=== PATIENT | male | born 1930 | race African-American/Black ===

== ENCOUNTER 2016-10-23 14:26 | Emergency (ER) | payer BC, MEDICARE ==
[~2016-10-23] VITALS: Ht 162.6 cm; Wt 70.5 kg
[~2016-10-23 14:26] MED LIST: ASPI-664 PO; BIMA2.5D BOTH EYES; CHOL20003 PO; CLOP75TA27 PO; DOXY100T20 PO; FAMO-18 PO; FOLI-49 PO; INSU100C5 SC; LEVO175T6 PO; LYR75 PO; MECL25TA2 PO; METO-448 PO; NIFE30TA60 PO; OXYC20TA41 PO; PROP30DR BOTH EYES; REMI IV; TERA10CA42 PO
[2016-10-23 15:06] VITALS: Ht 162.6 cm; Wt 70.5 kg
== END 2016-10-23 20:46 | disposition left against medical advice (07) ==
LOC: E/R 14:26
DX: Z53.21 Procedure and treatment not carried out due to patient leaving prior to being seen by health care provider (principal)

== ENCOUNTER 2016-11-03 09:24 | Emergency (ER) | payer MEDICARE ==
[~2016-11-03] VITALS: Wt 80.0 kg
[2016-11-03] MEDS ORDERED: HYDROCODONE/APAP (5/325) TAB PO ONE (11:00)
--- NOTE | 2016-11-03 13:04 | RADRPT ---
PROCEDURE: XR Lumbar Spine. CLINICAL INDICATION: Pain status post fall. TECHNIQUE: Lumbar spine x-rays, 2 views. COMPARISON: CT abdomen/pelvis 10/10/2012. FINDINGS: Bony mineralization appears slightly decreased. Vertebral body heights are normal. Surgical changes compatible with L5-S1 posterior spinal fusion are present. The configuration of the hardware is un changed. Severe intervertebral disk narrowing is observed at L4-L5 and L5-S1. The degree of anterol isthesis at L4-L5 and L5-S1 is grossly unchanged. Moderate degenerative changes are observed at L3- L4. Paravertebral soft tissues are unremarkable. Aortoiliac atherosclerotic calcification is presen t. IMPRESSION: L5-S1 posterior spinal fusion. The configuration of the hardware is unchanged as well as the degree of anterolisthesis of 4 over L5 and L5 over S1. 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 RPTAT: HLST .Mallorie Naqvi MD, MD Date Time Electronically viewed and signed by .Mallorie Naqvi MD, MD on 11/03/2016 13:04 .T/
--- NOTE | 2016-11-03 13:07 | RADRPT ---
PROCEDURE: XR Hip. CLINICAL INDICATION: Pain status post fall. TECHNIQUE: Right hip x-rays, 2 views. COMPARISON: None. FINDINGS: Bony mineralization appears decreased. There is no visible fracture. Femoral head and neck contour is smooth and intact. Moderate severe joint space narrowing is present. Spinal fusion hardware of the lower lumbar spine is in place. Phleboliths are seen within the pelvis. IMPRESSION: No evidence of acute osseous abnormality. Moderate severe joint space narrowing of the right hip. RPTAT: HLST .Mallorie Naqvi MD, MD Date Time Electronically viewed and signed by .Mallorie Naqvi MD, MD on 11/03/2016 13:07 .T/
--- NOTE | 2016-11-03 13:44 | RADRPT ---
PROCEDURE: CT scan of the right lower extremity without contrast. CLINICAL INDICATION: History of fall with right hip pain. TECHNIQUE: The scan of the right lower extremity was performed utilizing a high-resolution multide tector CT scanner. Direct thin section helical thin section axial sections were obtained without con trast. Coronal and sagittal as well as maximal intensity projection reformations were obtained. CTDI: 7.27 and DLP: 202.4 One or more of the following dose reduction techniques were used: - Automated exposure control. - Adjustment of the mA and/or kV according to patient size. Use of iterative reconstruction technique. COMPARISON: Right hip T 06/2017. FINDINGS: There are vascular calcifications in the internal and external iliac arteries, common fem oral artery and superficial femoral artery. There is vacuum phenomenon in the right SI joint. The right femur is intact. The visible portions of the right side of the acetabulum are intact. No sof t tissue mass or hematoma is identified. There are degenerative spurs along the margin of the right acetabulum. There are calcifications adjacent to the greater trochanter of the femur consistent wi th myositis ossificans. The visible portions of the urinary bladder colon and small bowel loops are normal. No enlarged inguinal lymph nodes are inguinal hernia is identified. IMPRESSION: 1. Osteoarthritis of the right hip. 2. No evidence of acute fracture. 3. Atherosclerotic vascular disease. 4. Myositis ossificans. RPTAT:AAJJ Physician Darci Date Time Electronically viewed and signed by Physician Darci on 11/03/2016 13:43 MARC/
[2016-11-03] MEDS ORDERED: HYDR-906 PO (13:54)
[2016-11-03] MEDS ORDERED: DOCU-144 PO (13:54)
--- NOTE | 2016-11-04 23:04 | ERD ---
ER Documentation Chief Complaint Date/Time DATE: 11/03/16 Chief Complaint Right hip pain s/p mechanical fall HPI The patient is an 86-year-old male who presents to the Emergency Department with complaint of right hip pain s/p mechanical fall one week ago. He reports that he tripped over a step, and his right knee gave out, causing him to the fall directly onto his right hip. Since, he has been ambulatory with his walker , but with increased pain to that hip. He notes that he did not come directly to the Emergency Department after the fall, as it was important that he continue with his daily routine and go to [facility]. However, now that he has more time, he presented for evaluation. The patient describes a 7/10 aching pain to the lateral aspect of the right hip, that sometimes radiates proximally into the lumbar back, and sometimes distally down towards the knee. The pain is worsened with internal rotation of the hip, ambulation and weight-bearing activity, and is improved at rest. He denies any new numbness, paresthesias or weakness of the distal extremity since the fall. Denies any restricted range of motion. Denies any bowel or bladder disturbances, urinary retention, or lower extremity weakness. The patient lives at home with his daughter, and has been able to continue in his baseline ADLs with use of his walker. He denies any head or neck injury/trauma with the fall, or any other complaints or concerns at this time. ROS All systems reviewed and are negative except as per history of present illness. Medications Home Meds Active Scripts Docusate Sodium* (Colace*) 100 Mg Capsule, 100 MG PO BID, #30 CAP Prov:PAUL JONES PA-C 11/03/16 Hydrocodone/Acetaminophen (Quinn 5-325 Tablet) 1 Each Tablet, 1 EACH PO Q6, #12 TAB Prov:PAUL JONES PA-C 11/03/16 Doxycycline Hyclate* (Doxycycline Hyclate*) 100 Mg Tablet.dr, 100 MG PO BID for 7 Days, TAB Prov:CAMPOS CESAR MD 08/07/16 Meclizine Hcl* (Antivert*) 25 Mg Tablet, 25 MG PO Q6H Y for DIZZINESS, #20 TAB Prov:BRITTANI KISER DO 04/03/16 Reported Medications Nifedipine* (Nifedipine ER*) 30 Mg Tablet.sa, 30 MG PO DAILY, TAB.SA 04/03/16 Terazosin Hcl* (Terazosin Hcl*) 10 Mg Capsule, 10 MG PO HS, CAP 04/03/16 Propylene Glycol-Peg 400 (Systane 0.3-0.4% Eye Drops) 0.3-0.4 % - 30 Ml Drops, 1 DROP BOTH EYES QID Y for DRY EYES, EA 12/17/14 Bimatoprost* (Lumigan*) 0.01%-2.5 Ml Opht Drops, 1 DROP BOTH EYES HS, EA 12/17/14 Infliximab (Remicade) 100 Mg Soln, 100 MG IV once monthly 09/18/14 Oxycodone Hcl* (Oxycontin*) 20 Mg Tab.er.12h, 20 MG PO DAILY Y for PAIN, TAB 09/18/14 Cholecalciferol (Vitamin D3) (VITAMIN D-3) 2,000 Unit Capsule, 2000 UNIT PO DAILY 08/28/14 Folic Acid* (Folic Acid*) 1 Mg Tablet, 1 MG PO DAILY, TAB 08/28/14 Aspirin* (Aspirin* EC) 81 Mg Tablet.dr, 81 MG PO DAILY, TAB 08/28/14 Clopidogrel Bisulfate (Clopidogrel) 75 Mg Tablet, 75 MG PO DAILY, TAB 08/28/14 Levothyroxine Sodium* (Levothyroxine Sodium*) 175 Mcg Tablet, 175 MCG PO DAILY, TAB 08/28/14 Pregabalin* (Lyrica*) 75 Mg Capsule, 75 MG PO BID, CAP 08/28/14 Metoprolol Tartrate* (Lopressor*) 25 Mg Tab, 25 MG PO BID, TAB 08/28/14 Famotidine* (Pepcid*) 20 Mg Tablet, 20 MG PO DAILY, TAB 08/28/14 Insulin Glargine,Hum.rec.anlog (Lantus) 100 U/Ml Cartridge, 10 UNITS SC HS 09/15/11 Allergies Allergies: Coded Allergies: Penicillins (Verified Allergy, Mild, 09/15/16) sulfadiazine (Verified Allergy, Unknown, 09/15/16) PMhx/Soc History of Surgery: No Anesthesia Reaction: No Hx Neurological Disorder: No Hx Respiratory Disorders: No Hx Cardiac Disorders: No Hx Psychiatric Problems: No Hx Miscellaneous Medical Probl: No Hx Alcohol Use: No Hx Substance Use: No Hx Tobacco Use: No Smoking Status: Never smoker Physical Exam Vitals Vital Signs Date Time Temp Pulse Resp B/P Pulse Ox O2 Delivery O2 Flow Rate FiO2 11/03/16 09:30 98.0 76 18 148/68 99 Physical Exam GENERAL: Well-developed, well-nourished, in no acute distress HEENT: Head is normocephalic, atraumatic. No hematomas. Conjunctiva pink. Moist mucous membranes. NECK: Supple. No posterior midline tenderness. RESPIRATORY: Clear to auscultation bilaterally. CARDIOVASCULAR: Regular rate and rhythm. S1 and S2 normal. GASTROINTESTINAL: Abdomen is soft, non-tender. Non-distended. Positive bowel sounds. EXTREMITIES: No clubbing, cyanosis, or edema. Distal pulses are palpable bilaterally. Moving both lower extremities. Patient is able to internally and externally rotate the right hip, though with increased discomfort upon internal rotation. He is able to flex and extend the right knee, and dorsiflex and plantar flex the right ankle. No gross deformities. BACK: Mild tenderness to palpation over the paraspinal muscles of the right lumbar back, particularly L5-S1. No midline bony tenderness. No step offs. NEUROLOGIC: The patient is alert, awake, and oriented x 3. PSYCHIATRIC: Appropriate; Cooperative. INTEGUMENT: No rashes. Results 24 hrs Current Medications Medications (Trade) Dose Ordered Sig/Geeta Route PRN Reason Start Time Stop Time Status Last Admin Dose Admin Acetaminophen/ Hydrocodone Bitart (Quinn (5/325)) 1 tab ONCE ONCE PO 11/03/16 11:00 11/03/16 11:01 DC 11/03/16 10:52 Procedures/MDM The patient's case was reviewed and discussed with Dr. Florian, who agrees with the plan of care including treatment and advanced imaging as appropriate. He recommends CT imaging of the right hip to rule out any underlying fracture that may have been missed on x-ray imaging. DIAGNOSTIC TESTS AND INTERPRETATION: PROCEDURE: XR Hip. CLINICAL INDICATION: Pain status post fall. TECHNIQUE: Right hip x-rays, 2 views. COMPARISON: None. FINDINGS:Bony mineralization appears decreased. There is no visible fracture. Femoral head and neck contour is smooth and intact. Moderate severe joint space narrowing is present. Spinal fusion hardware of the lower lumbar spine is in place. Phleboliths are seen within the pelvis. IMPRESSION: No evidence of acute osseous abnormality. Moderate severe joint space narrowing of the right hip. .Mallorie Naqvi MD, Date Time Electronically viewed and signed by .Mallorie Naqvi MD, on 11/03/2016 13:07 PROCEDURE: XR Lumbar Spine. CLINICAL INDICATION: Pain status post fall. TECHNIQUE: Lumbar spine x-rays, 2 views. COMPARISON: CT abdomen/pelvis 10/10/2012. FINDINGS: Bony mineralization appears slightly decreased. Vertebral body heights are normal. Surgical changes compatible with L5-S1 posterior spinal fusion are present. The configuration of the hardware is unchanged. Severe intervertebral disk narrowing is observed at L4-L5 and L5-S1. The degree of anterolisthesis at L4-L5 and L5-S1 is grossly unchanged. Moderate degenerative changes are observed at L3-L4. Paravertebral soft tissues are unremarkable. Aortoiliac atherosclerotic calcification is present. IMPRESSION: L5-S1 posterior spinal fusion. The configuration of the hardware is unchanged as well as the degree of anterolisthesis of 4 over L5 and L5 over S1. 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 .Mallorie Naqvi MD, Date Time Electronically viewed and signed by .Mallorie Naqvi MD, on 11/03/2016 13:04 PROCEDURE: CT scan of the right lower extremity without contrast. CLINICAL INDICATION: History of fall with right hip pain. TECHNIQUE: The scan of the right lower extremity was performed utilizing a high-resolution multidetector CT scanner. Direct thin section helical thin section axial sections were obtained without contrast. Coronal and sagittal as well as maximal intensity projection reformations were obtained. One or more of the following dose reduction techniques were used: - Automated exposure control. - Adjustment of the mA and/or kV according to patient size. Use of iterative reconstruction technique. COMPARISON: Right hip T 06/2017. FINDINGS: There are vascular calcifications in the internal and external iliac arteries, common femoral artery and superficial femoral artery. There is vacuum phenomenon in the right SI joint. The right femur is intact. The visible portions of the right side of the acetabulum are intact. No soft tissue mass or hematoma is identified. There are degenerative spurs along the margin of the right acetabulum. There are calcifications adjacent to the greater trochanter of the femur consistent with myositis ossificans. The visible portions of the urinary bladder colon and small bowel loops are normal. No enlarged inguinal lymph nodes are inguinal hernia is identified. IMPRESSION: 1. Osteoarthritis of the right hip. 2. No evidence of acute fracture. 3. Atherosclerotic vascular disease. 4. Myositis ossificans. Physician Darci Date Time Electronically viewed and signed by Kaleb Avalos Physician on 11/03/2016 13:43 MEDICAL DECISION MAKING: This is an 86-year-old male presenting to the Emergency Department with one week of right hip pain s/p mechanical trip and fall over a step and falling onto the right hip. The patient had tenderness to palpation over the lateral aspect of the femur and right hip on physical examination. Otherwise, he was able to flex, extend, internally and externally rotate. He had no focal swelling noted. No gross deformities. Distal neurovascular status was at his baseline. The differential diagnosis includes, but is not limited to, septic joint, gout, arthritis, fracture, dislocation, sprain, strain, contusion, tendinitis. No acute abnormalities were noted on x- rays performed. Myositis ossificans was noted on CT imaging, which may be related to the patient's current pain. There is currently no clinical evidence of fracture, dislocation, subluxation or any other emergent medical condition. After rest and administration of Quinn, the patient reports no new complaints, and decreased pain. Upon my review and interpretation of the patient's presentation and overall ER course, I believe the patient's symptoms are most consistent with right hip contusion. At this time, given that the patient is able to continue performing his daily ADLs with use of his home walker, and that he lives at home with his daughter, I believe that the patient is stable for discharge home. He will be discharged home with prescriptions for Quinn and Colace and given strict return precautions for signs of deteriorating or worsening condition. He is advised to follow-up with his primary care provider for reevaluation and further management within the next 1-2 days or return to the ER sooner for any new or worsening symptoms. I believe he may benefit from outpatient physical therapy as well. However, at this time, there is no clinical indication for admission. I shared my medical decision making and plan with the patient at length and in great detail, and he verbally understands and agrees with the plan for further observation and care as an outpatient. At the time of discharge all questions were answered. Departure Diagnosis: Primary Impression: Contusion of right hip Encounter type: initial encounter Qualified Code: S70.01XA - Contusion of right hip, initial encounter Additional Impression: Fall on stairs Encounter type: initial encounter Qualified Code: W10.9XXA - Fall on stairs , initial encounter Condition: Stable Patient Instructions: Hip Contusion Additional Instructions: Follow up with your primary medical provider in 1-2 days for reevaluation and further management. You may benefit from physical therapy as well. PAUL JONES PA-C Nov 04, 2016 23:04
== END 2016-11-03 14:09 | disposition home or self-care (01) ==
LOC: FTE 09:24
DX: S70.01XA Contusion of right hip, initial encounter (principal); E11.9 Type 2 diabetes mellitus without complications; W10.9XXA Fall (on) (from) unspecified stairs and steps, initial encounter; Y92.9 Unspecified place or not applicable; Z79.4 Long term (current) use of insulin; Z79.82 Long term (current) use of aspirin
CPT/HCPCS: 72100; 73510; 73700

== ENCOUNTER 2016-12-27 10:08 | Emergency (ER) | payer MEDICARE ==
[~2016-12-27] VITALS: Ht 162.6 cm; Wt 68.0 kg
[~2016-12-27 10:08] MED LIST changes: +DOCU-144 PO; +HYDR-906 PO
[2016-12-27 10:14] VITALS: Ht 162.6 cm; Wt 68.0 kg
[2016-12-27] MEDS ORDERED: ONDANSETRON (ODT) 4 MG TAB ODT STA (15:54)
[2016-12-27] MEDS ORDERED: morphine 10 MG INJ IM ONE (16:00)
--- NOTE | 2016-12-27 16:07 | ERD ---
ER Documentation Chief Complaint Date/Time DATE: 12/27/16 TIME: 16:03 Chief Complaint dizzy since last night pain in the back HPI 86-year-old male history of chronic pain, rheumatoid arthritis who presents with lumbar back pain. He states that he had a mechanical fall in October. Since that time he has been dealing with lumbar back pain that is radiating to the right lower extremity. He denies any bowel or bladder incontinence. He generally ambulates with a cane and that is unchanged since that time. The patient takes oxycodone at home for pain that is not helping his symptoms. He denies any abdominal pain, no numbness or tingling. At triage it was noted dizziness but the patient denies any dizziness to me. ROS All systems reviewed and are negative except as per history of present illness. Medications Home Meds Reported Medications Terazosin Hcl* (Terazosin Hcl*) 10 Mg Capsule, 10 MG PO HS, CAP 12/27/16 Allopurinol* (Allopurinol*) 100 Mg Tablet, 100 MG PO DAILY, TAB 12/27/16 Ranolazine* (Ranexa*) 500 Mg Tab.sr.12h, 500 MG PO Q12, TAB 12/27/16 Carvedilol* (Carvedilol*) 25 Mg Tablet, 25 MG PO DAILY, #60 TAB 12/27/16 Levothyroxine Sodium* (Levothyroxine Sodium*) 125 Mcg Tablet, 125 MCG PO BEFORE BREAKFAST, #30 TAB 12/27/16 Nifedipine* (Nifedipine ER*) 30 Mg Tablet.sa, 30 MG PO DAILY, TAB.SA 04/03/16 Oxycodone Hcl* (Oxycontin*) 20 Mg Tab.er.12h, 20 MG PO DAILY Y for PAIN, TAB 09/18/14 Cholecalciferol (Vitamin D3) (VITAMIN D-3) 2,000 Unit Capsule, 2000 UNIT PO DAILY 08/28/14 Aspirin* (Aspirin* EC) 81 Mg Tablet.dr, 81 MG PO DAILY, TAB 08/28/14 Clopidogrel Bisulfate (Clopidogrel) 75 Mg Tablet, 75 MG PO DAILY, TAB 08/28/14 Pregabalin* (Lyrica*) 75 Mg Capsule, 75 MG PO BID, CAP 08/28/14 Famotidine* (Pepcid*) 20 Mg Tablet, 20 MG PO DAILY, TAB 08/28/14 Insulin Glargine,Hum.rec.anlog (Lantus) 100 U/Ml Cartridge, 8 UNITS SC HS 09/15/11 Discontinued Reported Medications Terazosin Hcl* (Terazosin Hcl*) 10 Mg Capsule, 10 MG PO HS, CAP 04/03/16 Propylene Glycol-Peg 400 (Systane 0.3-0.4% Eye Drops) 0.3-0.4 % - 30 Ml Drops, 1 DROP BOTH EYES QID Y for DRY EYES, EA 12/17/14 Bimatoprost* (Lumigan*) 0.01%-2.5 Ml Opht Drops, 1 DROP BOTH EYES HS, EA 12/17/14 Infliximab (Remicade) 100 Mg Soln, 100 MG IV once monthly 09/18/14 Folic Acid* (Folic Acid*) 1 Mg Tablet, 1 MG PO DAILY, TAB 08/28/14 Levothyroxine Sodium* (Levothyroxine Sodium*) 175 Mcg Tablet, 175 MCG PO DAILY, TAB 08/28/14 Metoprolol Tartrate* (Lopressor*) 25 Mg Tab, 25 MG PO BID, TAB 08/28/14 Discontinued Scripts Docusate Sodium* (Colace*) 100 Mg Capsule, 100 MG PO BID, #30 CAP Prov:PAUL JONES PA-C 11/03/16 Hydrocodone/Acetaminophen ([place] 5-325 Tablet) 1 Each Tablet, 1 EACH PO Q6, #12 TAB Prov:PAUL JONES PA-C 11/03/16 Doxycycline Hyclate* (Doxycycline Hyclate*) 100 Mg Tablet.dr, 100 MG PO BID for 7 Days, TAB Prov:CAMPOS CESAR MD 08/07/16 Meclizine Hcl* (Antivert*) 25 Mg Tablet, 25 MG PO Q6H Y for DIZZINESS, #20 TAB Prov:BRITTANI KISER DO 04/03/16 Allergies Allergies: Coded Allergies: Penicillins (Verified Allergy, Mild, 12/27/16) sulfadiazine (Verified Allergy, Unknown, 12/27/16) PMhx/Soc History of Surgery: No Anesthesia Reaction: No Hx Neurological Disorder: No Hx Respiratory Disorders: No Hx Cardiac Disorders: No Hx Psychiatric Problems: No Hx Miscellaneous Medical Probl: No Hx Alcohol Use: No Hx Substance Use: No Hx Tobacco Use: No FmHx Family History: No diabetes Physical Exam Vitals Vital Signs Date Time Temp Pulse Resp B/P Pulse Ox O2 Delivery O2 Flow Rate FiO2 12/27/16 10:14 98.1 63 18 131/62 99 Physical Exam General: Well developed, well nourished, no acute distress, stigmata of rheumatoid arthritis Head: Normocephalic, atraumatic. Eyes: Pupils equally reactive, EOM intact ENT: Moist mucous membranes Neck: Supple, no lymphadenopathy Respiratory: Lungs clear bilaterally, no distress Cardiovascular: RRR, no murmurs, rubs, or gallops Abdominal: Soft, non-tender, non-distended, no peritoneal signs, no pulsatile mass Back: No midline tenderness deformities or step-offs, slight soft tissue reproducible right paraspinal muscle tenderness : Deferred MSK: No edema, no unilateral swelling, 5/5 strength Neurologic: Alert and oriented, moving all extremities, normal speech, no focal weakness, no cerebellar signs, steady ambulation with cane at baseline Skin: No rash Psych: Normal mood Results 24 hrs Current Medications Medications (Trade) Dose Ordered Sig/Geeta Route PRN Reason Start Time Stop Time Status Last Admin Dose Admin Morphine Sulfate (morphine) 4 mg ONCE ONCE IM 12/27/16 16:00 12/27/16 16:09 DC 12/27/16 16:36 Ondansetron HCl (Zofran Odt) 4 mg ONCE STAT ODT 12/27/16 15:54 12/27/16 15:57 DC 12/27/16 16:36 Procedures/MDM EKG, MONITORS, & DIAGNOSTIC IMAGING: CT lumbar spine: IMPRESSION: There is a transitional vertebra which will be labeled S1 with rudimentary disc at S1-S2. Please refer to imaging prior to any surgical intervention. 1. No acute fracture. 2. Bilateral L5-S1 transpedicular screws with vertical fixation rods as detailed above. The hardware is intact without evidence of screw loosening. There is solid interbody osseous fusion at L4-5 as well as solid bilateral posterior fusion at L4-5 and L5-S1. 3. L4-L5 grade 1/2 anterolisthesis with bilateral laminectomies with moderate spinal canal stenosis. There is severe bilateral foraminal stenosis impinging the exiting bilateral L4 nerve roots. 4. L5-S1 grade 1 anterolisthesis with moderate to severe spinal canal stenosis. There is severe bilateral foraminal stenosis impinging the exiting bilateral L5 nerve roots. 5. There is a partially imaged soft tissue within the inferior aspect of the bladder most likely representing an enlarged prostate. This was noted on the CT of the abdomen/pelvis from October 10, 2012. Correlate with digital rectal examination and PSA as clinically warranted. Further findings as detailed above. RPTAT: PP MEDICAL DECISION MAKING: The patient presents with lumbar back pain for approximately 2 months. This is secondary to mechanical fall at that time. The patient had x-ray imaging that showed lumbar fusion. His clinical presentation is consistent with likely lumbar radiculopathy. Related to the fall the patient may have had a protruding disc or nerve impingement. No signs of cauda equina or cord compression. The patient's low back pain is unlikely related to serious etiology. The patient exhibits no clinical signs or symptoms and has no history or risk factors to suggest cauda equina, cord compression, epidural abscess, epidural hematoma, acute aortic aneurysm or dissection. It is unclear why at triage it was noted dizziness. The patient adamantly denies reporting this. The patient is steady on his feet with normal blood pressure. I do not believe this is an alternative process such as stroke, acute vascular process or acute intra-abdominal process. I believe CT imaging of the lumbar spine would be reasonable. Patient will require outpatient referral to hematology specialist, consideration for MRI imaging or physical and rehab therapy. He also sees his pain specialist. ER COURSE: Single dose of 4 mg IM morphine provided to the patient. CT imaging consistent with likely lumbar radiculopathy without evidence of acute fracture or acute process. Outpatient follow-up with primary care physician, physical and rehab therapy and referral to hematology specialist through primary care physician would be most appropriate for this patient. I kept the patient and/or family informed of laboratory and diagnostic imaging results throughout the emergency room course. DISPOSITION PLAN: We discussed follow up with the patient's primary care doctor within 24 to 48 hours as needed. We also discussed return to the emergency room for worsening symptoms or worsening condition. Outpatient referral: Spine surgery Discharge Medications: Patient taking pain medication at home that is adequate Departure Diagnosis: Primary Impression: Lumbar back pain Chronicity: chronic Back pain laterality: bilateral Sciatica presence: with sciatica Sciatica laterality: sciatica of right side Qualified Code: M54.41 - Chronic bilateral low back pain with right-sided sciatica Additional Impressions: Lumbar radiculopathy, acute Lumbar radiculopathy, chronic Condition: Stable SOUMYA RAVI MD Dec 27, 2016 16:07
[2016-12-27] MEDS ORDERED: LEVO125T75 PO (16:20)
[2016-12-27] MEDS ORDERED: RANO500T2 PO (16:21)
[2016-12-27] MEDS ORDERED: CARV25TA79 PO (16:21)
[2016-12-27] MEDS ORDERED: ALLO100T PO (16:22)
[2016-12-27] MEDS ORDERED: TERA10CA42 PO (16:22)
--- NOTE | 2016-12-27 16:47 | RADRPT ---
PROCEDURE: CT Lumbar Spine without contrast. CLINICAL INDICATION: Status post fall. Postoperative. TECHNIQUE: Noncontrast CT of the lumbar spine was performed with multiplanar reformatted images gen erated from the axial acquired data. The administered radiation dose was CTDI vol = 52.67 mGy, DLP = 1533.67 mGy-cm. One or more of the following dose reduction techniques were used: Automated exposu re control, Adjustment of the mA and/or kV according to patient size, or Use of iterative reconstruc tion technique. COMPARISON: There are no similar studies submitted for comparison. FINDINGS: There is a transitional vertebra which will be labeled S1 with rudimentary disc at S1-S2. Please ref er to imaging prior to any surgical intervention. The patient is status post bilateral L5 and S1 transpedicular screws with vertical fixation rods. T he left L4 screw mildly extends into the inferior aspect of the left L4-5 foramina. The hardware is intact without evidence of screw loosening. There is osseous fusion at L4-L5. Posterior bone graft material is noted at the L4-L5 and L5-S1 levels with solid osseous fusion posteriorly. There is normal lumbar lordosis. There is minimal loss of L4 vertebral body height which is likely chronic. There are endplate scler otic degenerative changes with subchondral cysts at the L3-L4 level. There is a large Schmorl's node within the inferior L2 endplate. There is no destructive osseous lesion. There is no acute fracture. T11-T12: There is mild disk space narrowing. There is a 2 mm broad-based disk bulge and moderate b ilateral facet arthropathy with mild to moderate spinal canal stenosis. There is moderate bilateral foraminal stenosis. T12-L1 : There is mild disk space narrowing. There is a 2 mm broad-based disk bulge and mild bilate ral facet arthropathy without spinal canal or bilateral foraminal stenosis. L1-L2 : There is a 2 mm broad-based disk bulge and mild bilateral facet arthropathy without spinal c anal stenosis. There is no bilateral foraminal stenosis. L2-L3 : There is vacuum disk phenomenon. There is a 3 mm broad-based disk bulge with dorsal disk ca lcification with moderate bilateral facet arthropathy and ligamentum flavum infolding effacing the b ilateral lateral recesses with mild spinal canal stenosis. There is moderate bilateral foraminal st enosis contacting the exiting bilateral L2 nerve roots. L3-L4 : There is extensive vacuum disk phenomenon. There is minimal retrolisthesis with a broad-bas ed disk osteophyte complex with moderate bilateral facet arthropathy and ligamentum flavum infolding causing severe spinal canal stenosis. There is severe bilateral foraminal stenosis impinging the e xiting bilateral L3 nerve roots. L4-L5 : There is osseous interbody fusion. There is 9 mm of grade 1/2 anterolisthesis with bilatera l laminectomies with uncovering of the intervertebral body disk with severe bilateral facet arthropa thy causing moderate spinal canal stenosis. There is severe bilateral foraminal stenosis impinging the exiting bilateral L4 nerve roots. L5-S1 : There is severe disk space narrowing. There is 5 mm of grade 1 anterolisthesis with severe bilateral facet arthropathy with moderate to severe spinal canal stenosis. There is severe bilatera l foraminal stenosis impinging the exiting bilateral L5 nerve roots. The sacroiliac joints are intact. There are right renal cysts with the larger measuring 2 cm. There is a partially imaged soft tissue within the inferior aspect of the bladder which is indeterminate but may represent an enlarged prostate. IMPRESSION: There is a transitional vertebra which will be labeled S1 with rudimentary disc at S1-S2. Please ref er to imaging prior to any surgical intervention. 1. No acute fracture. 2. Bilateral L5-S1 transpedicular screws with vertical fixation rods as detailed above. The hardwar e is intact without evidence of screw loosening. There is solid interbody osseous fusion at L4-5 as well as solid bilateral posterior fusion at L4-5 and L5-S1. 3. L4-L5 grade 1/2 anterolisthesis with bilateral laminectomies with moderate spinal canal stenosis . There is severe bilateral foraminal stenosis impinging the exiting bilateral L4 nerve roots. 4. L5-S1 grade 1 anterolisthesis with moderate to severe spinal canal stenosis. There is severe bi lateral foraminal stenosis impinging the exiting bilateral L5 nerve roots. 5. There is a partially imaged soft tissue within the inferior aspect of the bladder most likely rep resenting an enlarged prostate. This was noted on the CT of the abdomen/pelvis from October 10, 2012 . Correlate with digital rectal examination and PSA as clinically warranted. Further findings as detailed above. RPTAT: PP .Clyde Rodarte MD, MD Date Time Electronically viewed and signed by .Clyde Rodarte MD, MD on 12/27/2016 16:46 .F/
[2016-12-27 18:08] VITALS: BP 150/79; PULSE 72; RESP 18; TEMP 98.3
== END 2016-12-27 18:11 | disposition home or self-care (01) ==
LOC: E/R 10:08
DX: M54.41 Lumbago with sciatica, right side (principal); M54.16 Radiculopathy, lumbar region; E11.9 Type 2 diabetes mellitus without complications
CPT/HCPCS: 72131; 96372; 99285; J2270

== ENCOUNTER 2017-01-04 12:20 | Emergency (ER) | payer MEDICARE ==
[~2017-01-04] VITALS: Ht 165.1 cm; Wt 67.0 kg
[~2017-01-04 12:20] MED LIST changes: +ALLO100T PO; -BIMA2.5D BOTH EYES; +CARV25TA79 PO; -DOCU-144 PO; -DOXY100T20 PO; -FOLI-49 PO; -HYDR-906 PO; +LEVO125T75 PO; -LEVO175T6 PO; -MECL25TA2 PO; -METO-448 PO; -PROP30DR BOTH EYES; +RANO500T2 PO; -REMI IV
[2017-01-04 12:25] VITALS: Ht 165.1 cm; Wt 67.0 kg
== END 2017-01-04 12:49 | disposition left against medical advice (07) ==
LOC: E/R 12:20
DX: Z53.21 Procedure and treatment not carried out due to patient leaving prior to being seen by health care provider (principal)

== ENCOUNTER 2017-07-09 19:49 | Emergency (ER) | payer BC, MEDICARE ==
[~2017-07-09] VITALS: Ht 160 cm; Wt 63.5 kg
[~2017-07-09 19:49] MED LIST changes: -CHOL20003 PO; +CHOL200073 PO; -FAMO-18 PO; +FAMO-96 PO
[2017-07-09 20:20] VITALS: Ht 160 cm; Wt 63.5 kg
== END 2017-07-09 23:20 | disposition left against medical advice (07) ==
LOC: E/R 19:49
DX: Z53.21 Procedure and treatment not carried out due to patient leaving prior to being seen by health care provider (principal)

== ENCOUNTER 2017-07-28 19:06 | Inpatient (IN) | payer MEDICARE, BC ==
[~2017-07-28] VITALS: Ht 167.6 cm; Wt 62.5 kg
--- NOTE | 2017-07-28 19:53 | ERD ---
ER Documentation Chief Complaint Chief Complaint chest pain, elevated hr x 2 hours HPI This is an 87-year-old man with a past medical history of hypertension, hyperlipidemia, diabetes, CKD, hypothyroidism, coronary artery disease sp CABG 25 years ago, PVD, on aspirin and Plavix, heart failure on Coreg and Ranexa, BPH on terazosin who is presenting with nonradiating moderate left-sided chest pain, palpitations and lightheadedness for approximately 2 hours. He does not have associated diaphoresis or shortness of breath. The patient denies feeling sick recently. The patient denies fever or chills. The patient has had no headache or vision changes. The patient does not endorse neck or back pain. The patient has had no shortness of breath or trouble breathing. The patient denies nausea or vomiting. The patient denies abdominal pain or changes to bowel movements or urination. The patient has had no focal deficits. The patient has had no weakness or numbness or tingling to the face or extremities. ROS All systems reviewed and are negative except as per history of present illness. Medications Home Meds Reported Medications Terazosin Hcl* (Terazosin Hcl*) 10 Mg Capsule, 10 MG PO HS, CAP 12/27/16 Allopurinol* (Allopurinol*) 100 Mg Tablet, 100 MG PO DAILY, TAB 12/27/16 Ranolazine* (Ranexa*) 500 Mg Tab.sr.12h, 500 MG PO Q12, TAB 12/27/16 Carvedilol* (Carvedilol*) 25 Mg Tablet, 25 MG PO DAILY, #60 TAB 12/27/16 Levothyroxine Sodium* (Levothyroxine Sodium*) 125 Mcg Tablet, 125 MCG PO BEFORE BREAKFAST, #30 TAB 12/27/16 Nifedipine* (Nifedipine ER*) 30 Mg Tablet.sa, 30 MG PO DAILY, TAB.SA 04/03/16 Oxycodone Hcl* (Oxycontin*) 20 Mg Tab.er.12h, 20 MG PO DAILY Y for PAIN, TAB 09/18/14 Cholecalciferol (Vitamin D3) (VITAMIN D-3) 2,000 Unit Capsule, 2000 UNIT PO DAILY 08/28/14 Aspirin* (Aspirin* EC) 81 Mg Tablet.dr, 81 MG PO DAILY, TAB 08/28/14 Clopidogrel Bisulfate (Clopidogrel) 75 Mg Tablet, 75 MG PO DAILY, TAB 08/28/14 Pregabalin* (Lyrica*) 75 Mg Capsule, 75 MG PO BID, CAP 08/28/14 Famotidine* (Pepcid*) 20 Mg Tablet, 20 MG PO DAILY, TAB 08/28/14 Insulin Glargine,Hum.rec.anlog (Lantus) 100 U/Ml Cartridge, 8 UNITS SC HS 09/15/11 Allergies Allergies: Coded Allergies: Penicillins (Verified Allergy, Mild, 12/27/16) Sulfa (Sulfonamide Antibiotics) (Verified Allergy, Unknown, 07/28/17) sulfadiazine (Verified Allergy, Unknown, 12/27/16) PMhx/Soc History of Surgery: No Anesthesia Reaction: No Hx Neurological Disorder: No Hx Respiratory Disorders: No Hx Cardiac Disorders: Yes (HTN, HLD, CAD, PVD, DM) Hx Psychiatric Problems: No Hx Miscellaneous Medical Probl: Yes (BACK PAIN, CKD) Hx Alcohol Use: No Hx Substance Use: No Hx Tobacco Use: No FmHx Family History: coronary disease, diabetes Physical Exam Vitals Vital Signs Date Time Temp Pulse Resp B/P Pulse Ox O2 Delivery O2 Flow Rate FiO2 07/28/17 19:50 98.4 93 19 156/63 96 Room Air 07/28/17 19:50 Nasal Cannula 07/28/17 19:12 98.4 105 20 143/71 95 Physical Exam Const: No apparent distress, well-developed, well-nourished Head: Atraumatic Eyes: Normal Conjunctiva. Extraocular movements intact. ENT: Normal External Ears, Nose and Mouth. Neck: Full range of motion. ~ No meningismus. Resp: Faint bibasilar rales Cardio: Regular rhythm, mild tachycardia, no murmurs Abd: Soft, non tender, non distended. Normal bowel sounds Skin: No petechiae or rashes Back: No midline or flank tenderness Ext: No cyanosis, LLE edema with mild warmth and erythema Neur: Awake and alert, oriented 4. Cranial nerves intact. No facial droop. Normal strength and sensation in all extremities. Coordination with finger to nose normal. Psych: Normal Mood and Affect Result Diagram: 07/28/17 1950 07/28/17 1950 Results 24 hrs Laboratory Tests Test 07/28/17 19:50 White Blood Count 11.710^3/ul Red Blood Count 2.7310^6/ul Hemoglobin 7.9g/dl Hematocrit 24.6% Mean Corpuscular Volume 90.1fl Mean Corpuscular Hemoglobin 28.9pg Mean Corpuscular Hemoglobin Concent 32.1g/dl Red Cell Distribution Width 15.5% Platelet Count 04803^3/UL Mean Platelet Volume 9.1fl Neutrophils % 60.9% Lymphocytes % 25.4% Monocytes % 7.1% Eosinophils % 5.8% Basophils % 0.5% Nucleated Red Blood Cells % 0.0/100WBC Neutrophils # 7.110^3/ul Lymphocytes # 3.010^3/ul Monocytes # 0.810^3/ul Eosinophils # 0.710^3/ul Basophils # 0.110^3/ul Nucleated Red Blood Cells # 0.010^3/ul Prothrombin Time 16.2Sec Prothrombin Time Ratio 1.3 INR International Normalized Ratio 1.29 Sodium Level 138mmol/L Potassium Level 3.7mmol/L Chloride Level 94mmol/L Carbon Dioxide Level 31mmol/L Anion Gap 17 Blood Urea Nitrogen 27mg/dl Creatinine 1.56mg/dl Glucose Level 132mg/dl Calcium Level 8.9mg/dl Iron Level 29ug/dl Total Iron Binding Capacity Pending Percent Iron Saturation Pending Total Bilirubin 0.3mg/dl Direct Bilirubin 0.00mg/dl Indirect Bilirubin 0.3mg/dl Aspartate Amino Transf (AST/SGOT) 20IU/L Alanine Aminotransferase (ALT/SGPT) 16IU/L Alkaline Phosphatase 84IU/L Troponin I < 0.012ng/ml B-Type Natriuretic Peptide 609PG/ML Total Protein 8.1g/dl Albumin 4.0g/dl Globulin 4.10g/dl Albumin/Globulin Ratio 0.97 Current Medications Medications (Trade) Dose Ordered Sig/Geeta Route PRN Reason Start Time Stop Time Status Last Admin Dose Admin Aspirin (Aspirin) 324 mg ONCE ONCE PO 07/28/17 20:00 07/28/17 20:01 DC 07/28/17 20:28 Procedures/[facility] The patient's presentation warrants further investigation. The patient's history is concerning and I have a moderate suspicion of a cardiac pathology. A cardiac workup will be performed. The patient's symptoms are not consistent with aortic dissection. I have low suspicion for pulmonary embolism. That said , the patient does have left lower extremity edema. The patient reports that he had veins removed from that leg for his CABG and he has had swelling for quite some time. A Doppler will be obtained in the hospital. The patient does not have signs of an infectious etiology such as pneumonia. I am not entirely convinced that the patient has cellulitis, especially in the setting of chronic left lower extremity changes, but his left lower extremity is warm to touch. This will need to be evaluated in the hospital as well. She does not have symptoms consistent with a pneumothorax. LABS The patient's blood work was obtained and reviewed. The patient's CBC shows mild leukocytosis but no left shift. The patient is afebrile and does not appear systemically ill. I do not suspect a systemic infection. The patient is anemic today. A type and screen and iron studies will be sent off. The patient' s platelet count is unremarkable. The patient's BMP shows an elevated creatinine, which is actually improved from previous. He does have a history of CKD. Aside from this, he has no emergent signs of metabolic or electrolyte abnormality. His troponin is negative. His BNP is in an indeterminate range. The patient has known heart failure, but I have less suspicion for a heart failure exacerbation as he is oxygenating well and clinically only has faint bibasilar rales. EKG EKG read by me: Rate/Rhythm: Regular rate and sinus rhythm at a rate of 91bpm Intervals: Normal QRS and QTc. Prolonged IN interval indicating a first-degree AV block. [place]: Normal Impression: Nonspecific ST changes in the inferior and lateral leads without evidence of acute ischemia or arrhythmia Repeat EKG: Unchanged at 85 bpm IMAGING CXR 1V Interpreted by me. Soft Tissue: No acute abnormalities. Bones: No acute abnormalities Mediastinum/Cardiac Silhouette: No cardiomegaly. Increased perihilar vasculature. Sternotomy wires present. Lungs: Increased vascular markings indicating possible mild pulmonary edema. No pleural effusions. No pneumothorax. No consolidation or opacity concerning for pneumonia. TREATMENT/DISPOSITION I placed the patient's heart score at 6 for age, risk factors, moderate suspicion and nonspecific repolarization abnormalities on the EKG. I do feel that he requires further workup for evaluation in the hospital. The patient will be given aspirin in the emergency department. He also needs to be evaluated for his left lower extremity edema and anemia. At this time, I feel that the patient requires admission for further evaluation and management. The patient will be admitted to Dr. Alatorre in accordance with the patient's insurance. The patient was accepted by Dr. Alatorre at 20:55PM on July 28, 2017. Departure Diagnosis: Primary Impression: Chest pain Chest pain type: unspecified Qualified Code: R07.9 - Chest pain, unspecified type Additional Impressions: History of coronary artery bypass graft Stasis edema of left lower extremity Anemia Anemia type: unspecified type Qualified Code: D64.9 - Anemia, unspecified type CKD (chronic kidney disease) Chronic kidney disease stage: unspecified stage Qualified Code: N18.9 - Chronic kidney disease, unspecified CKD stage Leukocytosis Leukocytosis type: unspecified Qualified Code: D72.829 - Leukocytosis, unspecified type Condition: HARRISON Lewis MD Jul 28, 2017 19:53
[2017-07-28] MEDS ORDERED: ASPIRIN 81 MG TAB PO ONE (20:00)
--- NOTE | 2017-07-28 21:21 | RADRPT ---
PROCEDURE: Portable chest x-ray. CLINICAL INDICATION: Chest pain. TECHNIQUE: Portable AP view of the chest. COMPARISON: 09/15/2016. FINDINGS: There is mild left basilar atelectasis. No pulmonary edema or conolidation is identified. The patie nt is status post median sternotomy and CABG. The cardiac silhouette is magnified. There are aortic calcifications. No pleural effusion is seen. There is no pneumothorax. IMPRESSION: 1. No evidence of acute cardiopulmonary disease. 2. Status post CABG. 3. Aortic atherosclerosis. RPTAT: HTAR .Evaristo Carlos MD, MD Date Time Electronically viewed and signed by .Evaristo Carlos MD, MD on 07/28/2017 21:21 .R/
[2017-07-28] MEDS ORDERED: ACETAMINOPHEN 325 MG TAB PO PRN (21:30)
[2017-07-28] MEDS ORDERED: ONDANSETRON 4 MG INJ IV PRN (21:30)
--- NOTE | 2017-07-28 21:58 | RADRPT ---
PROCEDURE: Ultrasound of the left lower extremity venous system. CLINICAL INDICATION: Left leg pain and swelling, deep venous thrombosis TECHNIQUE: Marshall scale with and without compression, color doppler, spectral doppler of the venous system of the left lower extremity was performed. Venous augmentation maneuvers were utilized. COMPARISON: 08/03/2016 FINDINGS: Common femoral vein: Patent. Femoral vein: Patent. Popliteal vein: Patent. Calf veins: Patent. No soft tissue abnormalities are identified. IMPRESSION: No evidence of a deep vein thrombosis within the left lower extremity. RPTAT: AADD .Johnathan Arboleda MD, MD Date Time Electronically viewed and signed by .Johnathan Arboleda MD, MD on 07/28/2017 21:58 .B/
[2017-07-28 22:59] VITALS: TEMP 98.4
[2017-07-28 23:30] VITALS: Ht 167.6 cm; Wt 62.5 kg
[2017-07-28 23:55] VITALS: BP 164/69; RESP 18
[2017-07-29] VITALS (13 sets, daily range): BP systolic 123–155; BP diastolic 59–80; PULSE 41–79; RESP 17–20
[2017-07-29] MEDS ORDERED: NITROGLYCERIN (SL) 0.4 MG TAB SL PRN (01:00)
[2017-07-29] MEDS ORDERED: ACETAMINOPHEN 325 MG TAB PO PRN (01:00)
[2017-07-29] MEDS ORDERED: morphine 2 MG INJ IV PRN (01:00)
[2017-07-29] MEDS ORDERED: CARB15DR BOTH EYES (01:05)
[2017-07-29] MEDS ORDERED: BIMA5DRO RIGHT EYE (01:05)
[2017-07-29] MEDS ORDERED: FURO40TA4 PO (01:05)
[2017-07-29] MEDS ORDERED: FER325 PO (01:05)
[2017-07-29] MEDS ORDERED: CETI10TA34 PO (01:05)
[2017-07-29] MEDS ORDERED: oxyCODONE (CR) 10 MG TAB [oxyCONTIN] PO PRN (01:30)
[2017-07-29] MEDS ORDERED: GLUCOSE GEL 15 GRAM TUBE PO PRN ×2 (01:30)
[2017-07-29] MEDS ORDERED: GLUCOSE GEL 15 GRAM TUBE BUCCAL PRN (01:30)
[2017-07-29] MEDS ORDERED: GLUCAGON 1 MG INJ IM PRN (01:30)
[2017-07-29] MEDS ORDERED: DEXTROSE 50% 50 ML SYRINGE IV PRN ×2 (01:30)
[2017-07-29] MEDS: INSULIN GLARGINE [LANtus] 3 ML PEN SC SCH ×2 (01:39→20:55)
[2017-07-29] MEDS: ACCU-CHEK XX SCH (02:00)
[2017-07-29] MEDS ORDERED: ACCU-CHEK XX SCH (02:00)
[2017-07-29] MEDS: LEVOTHYROXINE 125 MCG TAB PO SCH (06:59)
[2017-07-29] MEDS: INSULIN ASPART [NOVOLOG] 3 ML PEN SC SCH ×4 (08:00→20:55)
[2017-07-29] MEDS: CARBOXYMETHYLCELLULOSE 0.5% 0.1 ML OPH BOTH EYES SCH ×3 (08:43→20:45)
[2017-07-29] MEDS: ALLOPURINOL 100 MG TAB PO SCH (08:43)
[2017-07-29] MEDS: FAMOTIDINE 20 MG TAB PO SCH (08:44)
[2017-07-29] MEDS: PREGABALIN 50 MG CAP PO SCH ×2 (08:44→20:45)
[2017-07-29] MEDS: LORATADINE 10 MG TAB PO SCH (08:44)
[2017-07-29] MEDS: CLOPIDOGREL 75 MG TAB PO SCH (08:44)
[2017-07-29] MEDS: FERROUS SULFATE (EC) 325 MG TAB PO SCH ×3 (08:45→20:45)
[2017-07-29] MEDS: CHOLECALCIFEROL 2,000 UNIT CAP PO SCH (08:45)
[2017-07-29] MEDS: ASPIRIN (EC) 81 MG TAB PO SCH (08:45)
[2017-07-29] MEDS: FUROSEMIDE 40 MG TAB PO SCH (08:46)
[2017-07-29] MEDS: AMLODIPINE 10 MG TAB PO SCH (12:00)
[2017-07-29] MEDS ORDERED: SOD CHLORIDE 0.9% 250 ML IV ONE (13:30)
--- NOTE | 2017-07-29 13:58 | CONS ---
DATE OF ADMISSION: 07/28/2017 DATE OF CONSULTATION: 07/29/2017 Thank you, Dr. Alatorre, for the cardiology consultation. REASON FOR CONSULTATION: Chest pain. HISTORY OF PRESENT ILLNESS: Patient is an 87-year-old gentleman who comes in with substernal chest pain which is on and off, nonradiating, not associated with shortness of breath but does complain of dizziness, but no syncope or palpitations. No nausea, vomiting, no fever, chills or rigors. Patient has history of coronary artery bypass surg cherie about 20 years ago and carotid endarterectomy about a couple of years ago. PAST MEDICAL HISTORY: Significant for: 1. Coronary artery disease, status post bypass surgery. 2. Cardiac endarterectomy. 3. Hypertension. 4. Dyslipidemia. 5. Hypothyroidism. 6. Diabetes mellitus. 7. Benign prostatic hypertrophy. 8. Anemia. SOCIAL HISTORY: No smoking, alcohol or recreational drug. ALLERGIES: 1. PENICILLIN. 2. SULFA ____. CURRENT MEDICATIONS: Include: 1. Lyrica. 2. Synthroid. 3. Allopurinol. 4. Aspirin. 5. Coreg. 6. Plavix. 7. Pepcid. 8. Lasix. 9. Claritin. 10. Xalatan. 11. Hytrin. 12. Insulin. 13. Ferrous sulfate. REVIEW OF SYSTEMS: unremarkable except that mentioned in the HPI. PHYSICAL EXAMINATION: VITAL SIGNS: Temperature is 98.5, heart rate of 60, blood pressure 148/67 mmHg, breathing at 18 and saturating 100%. GENERAL: Patient awake, alert and oriented, no apparent distress. NECK: No JVD or carotid bruit. CARDIOVASCULAR: Regular rate and rhythm, no murmur, rub or gallop. LUNGS: Chest is clear to auscultation. ABDOMEN: Soft. Bowel sounds are present. There is no organomegaly. EXTREMITIES: No pedal edema. Pedal pulses are felt bilaterally. REVIEW OF 12-lead EKG: Shows sinus rhythm with a ventricular rate of 85 beats per minute with first degree AV block with ____ milliseconds with normal QRS and normal QT intervals, with frequent PAC s. Chest x-ray shows no congestion or infiltrate. Venous Duplex: No DVT. LABORATORY DATA: WBC 6.8, hemoglobin ____, hematocrit 32.2 with a platelet of 348. Sodium 138, pot assium 4, chloride 98, CO2 of 31, BUN was 27, creatinine 1.28. Troponin x2 is negative. BNP 609. ASSESSMENT AND PLAN: An 87-year-old gentleman with: 1. Atypical chest pain. 2. Coronary artery disease, status post bypass surgery. 3. Carotid endarterectomy. 4. Hypertension. 5. Dyslipidemia. 6. Diabetes mellitus. 7. Benign prostatic hypertrophy. 8. Anemia. 9. Renal insufficiency. Review of 12-lead EKG shows sinus rhythm with marked sinus arrhythmia with a first degree AV block w ith nonspecific ST-T wave changes. He has been ruled out for acute coronary syndrome with serial ne gative troponins, clinically not in heart failure. RECOMMENDATIONS: 1. Continue Coreg as scheduled. 2. Discontinue Lasix. 3. Continue aspirin and Plavix. 4. Added Norvasc. 5. Started on Lipitor. 6. Echocardiogram to assess for systolic function and to rule out for pulmonary hypertension and pe ricardial disease. 7. Lexiscan and to rule out for reversible ischemia. Dictated By: JACE BENTON MD SR/SUZIE Conf#: [id number] DID#: [id number]
--- NOTE | 2017-07-29 13:59 | QN ---
Documentation Comment [id number] CAMPOS CESAR MD Jul 29, 2017 13:59
--- NOTE | 2017-07-29 13:59 | QN ---
Documentation Comment [id number] CAMPOS CESAR MD Jul 29, 2017 13:59
--- NOTE | 2017-07-29 13:59 | QN ---
Documentation Comment [id number] CAMPOS CESAR MD Jul 29, 2017 13:59
--- NOTE | 2017-07-29 17:03 | HP ---
DATE OF ADMISSION: 07/28/2017 HISTORY OF PRESENT ILLNESS: Brandin Mcintyre is an 87-year-old male with history of rheumatoid arthritis, hypertension, CAD, CKD. Patient previously has a history of thrombotic phlebitis in the groin, peripheral vascular disease, atherosclerotic heart disease, dyslipidemia, CKD, hypertension, diabetes mellitus, history of rheumatoid arthritis, now presents with body ache, chest pain and is being admitted for further management. Patient previously had lower extremity venous study that shows no evidence of DVT. The patient has a monophasic wave in the bilateral dorsalis pedis suggesting inflow disease into the buttock and dorsalis pedis arteries and right distal superficial small artery, 30% to 49% stenosis of the left proximal superficial femoral artery. The patient follows with a vascular surgeon as an outpatient and now is admitted with above complaints. ALLERGIES: PENICILLIN, SULFA DRUGS. SOCIAL HISTORY: Negative. MEDICATION HISTORY: The patient is on: 1. Allopurinol. 2. Aspirin. 3. Lumigan. 4. Coreg. 5. Rocephin. 6. Vitamin D3. 7. Plavix. 8. Pepcid. 9. Iron sulfate. 10. Insulin. 11. Levothyroxine. 12. Oxycodone. 13. Lyrica. 14. Terazosin. REVIEW OF SYSTEMS: HEENT: Unremarkable. RESPIRATORY: Unremarkable. CARDIOVASCULAR: Earlier chest pain, not at this point. ABDOMEN: Unremarkable. EXTREMITIES: Patient has arthritis, rheumatoid arthritis, chronic pain. CENTRAL NERVOUS SYSTEM: History of neuropathy. PHYSICAL EXAMINATION: GENERAL: The patient is awake and alert. Thin looking male. VITAL SIGNS: Pulse 52, blood pressure 146/65. HEAD: Atraumatic, normocephalic. Pupils equal, reactive to light. Pale conjunctivae, no icterus. NECK: Supple. LUNGS: Clear. CARDIOVASCULAR: S1, S2 normal. Systolic murmur noted. ABDOMEN: Soft. Bowel sounds positive. No palpable mass or hepatosplenomegaly. No guarding, rebound tenderness. EXTREMITIES: No cyanosis, clubbing, edema. CENTRAL NERVOUS SYSTEM: The patient is awake, alert with no focal deficit. MUSCULOSKELETAL: Deformed upper extremity fingers noted with metacarpophalangeal and the patient has proximal interphalangeal joint deformities noted. LABORATORY DATA: WBC 11.7, hematocrit 24.6, BUN 27, creatinine 1.28. Troponin glucose 117. Troponin is negative. EKG shows a normal EKG with nonspecific ST- T changes. Ultrasound of the lower extremity. No evidence of deep venous thrombosis. Chest x-ray: No evidence of acute cardiopulmonary disease. History of CABG. IMPRESSION: 1. Acute coronary syndrome, rule out myocardial infarction. 2. Chronic kidney disease. 3. Anemia of CKD, no evidence of GI bleed. 4. Hypertension. 5. dm. 6. Rheumatoid arthritis. 7. Neuropathy. PLAN: To continue home medications, oxygen. Troponin will be sent. Cardiology consultation. Sliding scale. Orders were done. Dictated By: CAMPOS CESAR MD BS/NTS Conf#: [id number] DID#: [id number] ANNAMARIE
[2017-07-29] MEDS: ATORVASTATIN 40 MG TAB PO SCH (20:45)
[2017-07-29] MEDS: TERAZOSIN 5 MG CAP PO SCH (20:45)
[2017-07-29] MEDS: LATANOPROST 0.005% 2.5 ML OPH RIGHT EYE SCH (20:55)
[2017-07-29] MEDS ORDERED: INSULIN GLARGINE [LANtus] 3 ML PEN SC SCH (21:00)
[2017-07-30] VITALS (9 sets, daily range): BP systolic 121–133; BP diastolic 57–73; PULSE 58–89; RESP 17–20
[2017-07-30] MEDS: ACCU-CHEK XX SCH (02:00)
[2017-07-30] MEDS: LEVOTHYROXINE 125 MCG TAB PO SCH (06:28)
[2017-07-30] MEDS: INSULIN ASPART [NOVOLOG] 3 ML PEN SC SCH ×4 (08:00→21:00)
[2017-07-30] MEDS: FERROUS SULFATE (EC) 325 MG TAB PO SCH ×3 (09:09→21:00)
[2017-07-30] MEDS: ALLOPURINOL 100 MG TAB PO SCH (09:09)
[2017-07-30] MEDS: CHOLECALCIFEROL 2,000 UNIT CAP PO SCH (09:09)
[2017-07-30] MEDS: CARBOXYMETHYLCELLULOSE 0.5% 0.1 ML OPH BOTH EYES SCH ×3 (09:09→21:00)
[2017-07-30] MEDS: PREGABALIN 50 MG CAP PO SCH ×2 (09:09→21:00)
[2017-07-30] MEDS: LORATADINE 10 MG TAB PO SCH (09:09)
[2017-07-30] MEDS: CLOPIDOGREL 75 MG TAB PO SCH (09:09)
[2017-07-30] MEDS: ASPIRIN (EC) 81 MG TAB PO SCH (09:09)
[2017-07-30] MEDS: FAMOTIDINE 20 MG TAB PO SCH (09:09)
[2017-07-30] MEDS: AMLODIPINE 10 MG TAB PO SCH (09:10)
[2017-07-30] MEDS: FUROSEMIDE 40 MG TAB PO SCH (09:11)
[2017-07-30] MEDS ORDERED: REGADENOSON 0.4 MG/5 ML SYG ONE (10:56)
--- NOTE | 2017-07-30 12:00 | CONS ---
Date/Time of Note Date/Time of Note DATE: 07/30/17 TIME: 11:56 Assessment/Plan Assessment/Plan Chief Complaint/Hosp Course ASSESSMENT AND PLAN: An 87-year-old gentleman with: 1. Chest pain.-negative trop x 3 2. Coronary artery disease, status post bypass surgery. 3. Carotid endarterectomy. 4. Hypertension. 5. Dyslipidemia. 6. Diabetes mellitus. 7. Benign prostatic hypertrophy. 8. Anemia. 9. Renal failure Recc: -Tele -seerial ecg's -Continue current Norvasc/terazosin -Continue asa/statin -Contiue daily PO lasix -Lexiscan stres test today -Will f/u echo Problems: Consultation Date/Type/Reason Admit Date/Time Jul 28, 2017 at 21:03 Initial Consult Date 07/29/2017 Type of Consultation: cardiology Reason for Consultation chest pain Referring Provider: CAMPOS CESAR Exam/Review of Systems Vital Signs Vitals Vital Signs Date Time Temp Pulse Resp B/P Pulse Ox O2 Delivery O2 Flow Rate FiO2 07/30/17 08:27 86 07/30/17 07:57 98.7 17 129/65 95 07/29/17 04:00 Nasal Cannula 2.0 Intake and Output 07/29/17 07/29/17 07/30/17 15:00 23:00 07:00 Intake Total 800 ml 650 ml Output Total 900 ml 600 ml Balance -100 ml 50 ml Exam Review of Systems: CONSTITUTIONAL: No fevers, chills. PULMONARY: No sob CARDIOVASCULAR:intermittent chest pain GASTROINTESTINAL: No nausea/vomiting. GENITOURINARY: No hematuria/dysuria. MUSCULOSKELETAL: No myagias/arthalgias. PSYCHIATRIC: The patient denies depression. NEUROLOGIC: No weakness Constitutional: alert, oriented Psych: no complaints Head: normocephalic ENMT: mucosa pink and moist Neck: jvd (9 cm water), supple Respiratory: diminished breath sounds (at bases/B) Cardiovascular: regular rate and rhythm Gastrointestinal: non-tender, soft Musculoskeletal: muscle tone (normal) Extremities: edema (trace/B) Neurological: other (No focal deficits) Results Result Diagram: 07/30/17 0605 07/30/17 0605 Results 24 hrs Laboratory Tests Test 07/29/17 11:57 07/29/17 16:57 07/29/17 20:47 07/30/17 05:34 Bedside Glucose 117 127 140 Lab Scanned Report BLOOD TRANSFUSION Test 07/30/17 06:05 07/30/17 07:53 White Blood Count 9.5 # Red Blood Count 3.18 #L Hemoglobin 8.8 #L Hematocrit 27.9 #L Mean Corpuscular Volume 87.7 Mean Corpuscular Hemoglobin 27.7 L Mean Corpuscular Hemoglobin Concent 31.5 L Red Cell Distribution Width 16.1 H Platelet Count 398 Mean Platelet Volume 9.2 Neutrophils % 48.0 Lymphocytes % 36.7 Monocytes % 8.6 Eosinophils % 5.9 Basophils % 0.6 Nucleated Red Blood Cells % 0.0 Neutrophils # 4.5 Lymphocytes # 3.5 H Monocytes # 0.8 Eosinophils # 0.6 H Basophils # 0.1 Nucleated Red Blood Cells # 0.0 Sodium Level 140 Potassium Level 4.0 Chloride Level 97 Carbon Dioxide Level 32 H Anion Gap 15 Blood Urea Nitrogen 29 H Creatinine 1.37 H Glucose Level 93 Calcium Level 8.7 Total Bilirubin 0.6 Direct Bilirubin 0.00 Indirect Bilirubin 0.6 Aspartate Amino Transf (AST/SGOT) 18 Alanine Aminotransferase (ALT/SGPT) 15 Alkaline Phosphatase 77 Total Protein 7.3 # Albumin 3.5 Globulin 3.80 H Albumin/Globulin Ratio 0.92 Bedside Glucose 108 Medications Medications Current Medications Nitroglycerin (Nitroglycerin (Sl Tab) 0.4 Mg) 1 tab Q5M PRN SL ANGINA; Start 07/29/17 at 01:00 Insulin Glargine (Lantus) 5 unit QHS SC Last administered on 07/29/17t 20:55; Admin Dose 5 UNIT; Start 07/29/17 at 01:00 Diagnostic Test (Pha) (Accu-Chek) 1 ea 02 XX ; Start 07/29/17 at 02:00 Morphine Sulfate (morphine) 2 mg Q4H PRN IV SEVERE PAIN LEVEL 7-10; Start 07/29 at 01:00 Acetaminophen (Tylenol Tab) 650 mg Q6H PRN PO PAIN AND OR ELEVATED TEMP; Start 07/29/17 at 01:00 Miscellaneous Information 1 ea NOTE XX ; Start 07/29/17 at 01:30 Glucose (Glutose) 15 gm Q15M PRN PO DECREASED GLUCOSE; Start 07/29/17 at 01:30 Glucose (Glutose) 22.5 gm Q15M PRN PO DECREASED GLUCOSE; Start 07/29/17 at 01: 30 Dextrose (D50w Syringe) 25 ml Q15M PRN IV DECREASED GLUCOSE; Start 07/29/17 at 01:30 Dextrose (D50w Syringe) 50 ml Q15M PRN IV DECREASED GLUCOSE; Start 07/29/17 at 01:30 Glucagon (Glucagen) 1 mg Q15M PRN IM DECREASED GLUCOSE; Start 07/29/17 at 01:30 Glucose (Glutose) 15 gm Q15M PRN BUCCAL DECREASED GLUCOSE; Start 07/29/17 at 01 :30 Allopurinol (Zyloprim) 100 mg DAILY PO Last administered on 07/30/17 09:09; Admin Dose 100 MG; Start 07/29/17 at 09:00 Aspirin (Halfprin) 81 mg DAILY PO Last administered on 07/30/17 09:09; Admin Dose 81 MG; Start 07/29/17 at 09:00 Latanoprost (Xalatan) 1 drop HS RIGHT EYE Last administered on 07/29/17 20:55 ; Admin Dose 1 DROP; Start 07/29/17 at 21:00 Eye Lubricant (Refresh Plus) 1 drop TID BOTH EYES Last administered on 09:09; Admin Dose 1 DROP; Start 07/29/17 at 09:00 Carvedilol (Coreg) 25 mg DAILY PO Last administered on 07/30/17 09:10; Admin Dose 25 MG; Start 07/29/17 at 09:00 Cholecalciferol (Vitamin D) 2,000 unit DAILY PO Last administered on 07/30/17 09:09; Admin Dose 2,000 UNIT; Start 07/29/17 at 09:00 Clopidogrel Bisulfate (plaVIX) 75 mg DAILY PO Last administered on 07/30/17 09 :09; Admin Dose 75 MG; Start 07/29/17 at 09:00 Famotidine (Pepcid) 20 mg DAILY PO Last administered on 07/30/17 09:09; Admin Dose 20 MG; Start 07/29/17 at 09:00 Ferrous Sulfate (Ferrous Sulfate (Ec)) 325 mg TID PO Last administered on 09:09; Admin Dose 325 MG; Start 07/29/17 at 09:00 Furosemide (Lasix) 40 mg DAILY PO Last administered on 07/30/17 09:11; Admin Dose 40 MG; Start 07/29/17 at 09:00 Oxycodone HCl (Oxycontin) 20 mg DAILY PRN PO PAIN Last administered on 09:20; Admin Dose 20 MG; Start 07/29/17 at 01:30 Pregabalin (Lyrica) 50 mg BID PO Last administered on 07/30/17 09:09; Admin Dose 50 MG; Start 07/29/17 at 09:00 Terazosin HCl (Hytrin) 10 mg HS PO Last administered on 07/29/17 20:45; Admin Dose 10 MG; Start 07/29/17 at 21:00 Loratadine (Claritin) 10 mg DAILY PO Last administered on 07/30/17 09:09; Admin Dose 10 MG; Start 07/29/17 at 09:00 Amlodipine Besylate (Norvasc) 10 mg DAILY PO Last administered on 07/30/17 09: 10; Admin Dose 10 MG; Start 07/29/17 at 11:00 Atorvastatin Calcium (Lipitor) 40 mg HS PO Last administered on 07/29/17 20:45 ; Admin Dose 40 MG; Start 07/29/17 at 21:00 MARJORIE JAIN 6, 2017 12:00
--- NOTE | 2017-07-30 12:42 | CONS ---
DATE OF ADMISSION: 07/28/2017 DATE OF CONSULTATION: 07/30/2017 TYPE OF PROCEDURE: Lexiscan Cardiolite stress test electrocardiogram portion. INDICATIONS: Chest pain, assess for ischemia. BASELINE VITAL SIGNS AND ELECTROCARDIOGRAM: Pulse 87, blood pressure 142/61. Electrocardiogram rev eals normal sinus rhythm at a rate of 87 with a first degree AV block and diffuse nonspecific ST-T a bnormalities. PROCEDURE: The patient was brought to the [facility], Cardiology Department where he was placed on continuous telemetry monitoring and blood pressure cuff cycling every 3 minutes. The patient subsequently received Lexiscan infusion over 10 seconds followed by radiolabeled tracer. The patient's test was stopped due to completion of protocol. Maximal achieved blood pressure dur ing the test 143/65. Maximal heart rate during the test 95. ECG FINDINGS: The patient did not develop any new Lexiscan-induced ST or T-wave changes from baseli ne abnormalities. No documented PVCs. SYMPTOMS: The patient had no complaints of chest pain or shortness of breath during stress testing. IMPRESSION: 1. No Lexiscan-induced ST or T-wave changes from baseline abnormalities diagnostic of cardiac ische juan r. 2. No complaints of chest pain or shortness of breath during stress test. 3. No documented premature ventricular contractions during stress test. 4. Report of nuclear images to follow in separate dictation. Dictated By: MARJORIE HERMAN/SUZIE Conf#: [id number] DID#: [id number] CC: CAMPOS CESAR MD;*EndCC*
--- NOTE | 2017-07-30 14:26 | RADRPT ---
PROCEDURE: Lexiscan myocardial perfusion study CLINICAL INDICATION: 87 -year-old patient complaining of chest pain. TECHNIQUE: Lexiscan 0.4 mg intravenously separate acquisition gated myocardial perfusion SPECT usi ng Tc 99m Myoview approximately 30.0 mCi intravenously at stress and Tc-99m Myoview, approximately 1 0 point to mCi intravenously at rest was performed using the rest/stress sequence. Poststress Myovi ew SPECT images were obtained in the supine position. COMPARISON: No prior studies. FINDINGS: Perfusion images reveal a small size mild in degree partially reversible perfusion abnormality in th e inferolateral wall. Lexiscan post stress gated SPECT images demonstrate no wall motion abnormalities. IMPRESSION: 1. The type and distribution of the scintigraphic abnormalities are most consistent with a small pa rtially reversible perfusion abnormality in the inferolateral wall; soft tissue attenuation cannot b e excluded. 2. No wall motion abnormalities. 3. The left ventricle ejection fraction at stress is greater than 70%. RPTAT: HH .Vicky Turnre MD, MD Date Time Electronically viewed and signed by .Vicky Turner MD, on 07/30/2017 14:26 .L/
--- NOTE | 2017-07-30 15:42 | RADRPT ---
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 Physician: BOB BENTON Quality: Adequate Procedures: Transthoracic echocardiogram with complete 2D, M-Mode, and doppler examination. Indications: Chest Pain. 2D/M Mode Doppler Measurement Value Normal Ranges Measurement Value Normal Ranges LVIDd 2D 3.6 3.5 - 5.6 cm AV Peak Vahid 2.0 m/sec LVIDs 2D 2.5 2.1 - 4.1 cm AV Peak PG 16.0 mmHg FS 2D 29.8 % AI Peak PG 57.0 mmHg LVPWd 2D 1.1 0.6 - 1.1 cm AI Peak Vahid 3.8 m/sec IVSd 2D 1.8 0.6 - 1.1 cm AI PHT 558.0 msec IVS/LVPW 2D 1.6 LVOT Peak Vahid 0.9 m/sec AoR Diam 2D 3.4 2.0 - 3.7 cm LVOT Peak PG 4.0 mmHg LA/Ao 2D 1 0 - 1 MV E Peak Vahid 0.8 m/sec EDV 2D 47.8 cm3 MV A Peak Vahid 1.1 m/sec ESV 2D 16.6 cm3 MV E/A 0.8 LA Dimen 2D 3.6 2.3 - 4.0 cm MV Decel Time 141 msec MV E/A 0.8 MR Peak PG 109.0 mmHg MR Peak Vahid 5.2 m/sec TR Peak Vahid 3.1 m/sec TR Peak PG 37.0 mmHg RVSP 40.0 mmHg Findings Left Ventricle: Hyperdynamic left ventricular systolic function. Normal left ventricular cavity size. Severe asymmetric septal hypertrophy. Ejection fraction is visually estimated at 65 %. Tissue Doppler/Mitral Doppler indices are consistent with impaired relaxation (Stage I diastolic dysfunction). Right Ventricle: Normal right ventricular size. Normal right ventricular systolic function. Left Atrium: The left atrium is normal in size. Right Atrium: The right atrium is normal in size. Mitral Valve: Mitral valve leaflets appear mildly thickened. Mild mitral annular calcification. Trace mitral regurgitation. Aortic Valve: Aortic sclerosis without stenosis. Mild aortic valve regurgitation. Tricuspid Valve: Normal appearance of the tricuspid valve. Estimated peak PA systolic pressure 40 mmHg. There is mild tricuspid regurgitation. Pulmonic Valve: Normal pulmonic valve appearance. Pericardium: Normal pericardium with no significant pericardial effusion. Aorta: Normal aortic root. IVC: Normal size and normal respiratory collapse consistent with normal right atrial pressure. Conclusions 1.Hyperdynamic left ventricular systolic function. Normal left ventricular cavity size. Severe asymmetric septal hypertrophy. Ejection fraction is visually estimated at 65 %. Tissue Doppler/Mitral Doppler indices are consistent with impaired relaxation (Stage I diastolic dysfunction). 2.Normal right ventricular size. Normal right ventricular systolic function. 3.Mitral valve leaflets appear mildly thickened. Mild mitral annular calcification. Trace mitral regurgitation. 4.Aortic sclerosis without stenosis. Mild aortic valve regurgitation. 5.Normal appearance of the tricuspid valve. Estimated peak PA systolic pressure 40 mmHg. There is mild tricuspid regurgitation. 6.Mild Pulmonary Hypertension. 7.Normal pericardium with no significant pericardial effusion. Electronically Signed By: Bob Benton 30-Jul-2017 15:40:57 -0800 Patient Name: DELILAH JAIN Study Date: 30-Jul-2017 [id number]
--- NOTE | 2017-07-30 15:42 | RADRPT ---
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 Physician: BOB BENTON Quality: Adequate Procedures: Transthoracic echocardiogram with complete 2D, M-Mode, and doppler examination. Indications: Chest Pain. 2D/M Mode Doppler Measurement Value Normal Ranges Measurement Value Normal Ranges LVIDd 2D 3.6 3.5 - 5.6 cm AV Peak Vahid 2.0 m/sec LVIDs 2D 2.5 2.1 - 4.1 cm AV Peak PG 16.0 mmHg FS 2D 29.8 % AI Peak PG 57.0 mmHg LVPWd 2D 1.1 0.6 - 1.1 cm AI Peak Vahid 3.8 m/sec IVSd 2D 1.8 0.6 - 1.1 cm AI PHT 558.0 msec IVS/LVPW 2D 1.6 LVOT Peak Vahid 0.9 m/sec AoR Diam 2D 3.4 2.0 - 3.7 cm LVOT Peak PG 4.0 mmHg LA/Ao 2D 1 0 - 1 MV E Peak Vahid 0.8 m/sec EDV 2D 47.8 cm3 MV A Peak Vahid 1.1 m/sec ESV 2D 16.6 cm3 MV E/A 0.8 LA Dimen 2D 3.6 2.3 - 4.0 cm MV Decel Time 141 msec MV E/A 0.8 MR Peak PG 109.0 mmHg MR Peak Vahid 5.2 m/sec TR Peak Vahid 3.1 m/sec TR Peak PG 37.0 mmHg RVSP 40.0 mmHg Findings Left Ventricle: Hyperdynamic left ventricular systolic function. Normal left ventricular cavity size. Severe asymmetric septal hypertrophy. Ejection fraction is visually estimated at 65 %. Tissue Doppler/Mitral Doppler indices are consistent with impaired relaxation (Stage I diastolic dysfunction). Right Ventricle: Normal right ventricular size. Normal right ventricular systolic function. Left Atrium: The left atrium is normal in size. Right Atrium: The right atrium is normal in size. Mitral Valve: Mitral valve leaflets appear mildly thickened. Mild mitral annular calcification. Trace mitral regurgitation. Aortic Valve: Aortic sclerosis without stenosis. Mild aortic valve regurgitation. Tricuspid Valve: Normal appearance of the tricuspid valve. Estimated peak PA systolic pressure 40 mmHg. There is mild tricuspid regurgitation. Pulmonic Valve: Normal pulmonic valve appearance. Pericardium: Normal pericardium with no significant pericardial effusion. Aorta: Normal aortic root. IVC: Normal size and normal respiratory collapse consistent with normal right atrial pressure. Conclusions 1.Hyperdynamic left ventricular systolic function. Normal left ventricular cavity size. Severe asymmetric septal hypertrophy. Ejection fraction is visually estimated at 65 %. Tissue Doppler/Mitral Doppler indices are consistent with impaired relaxation (Stage I diastolic dysfunction). 2.Normal right ventricular size. Normal right ventricular systolic function. 3.Mitral valve leaflets appear mildly thickened. Mild mitral annular calcification. Trace mitral regurgitation. 4.Aortic sclerosis without stenosis. Mild aortic valve regurgitation. 5.Normal appearance of the tricuspid valve. Estimated peak PA systolic pressure 40 mmHg. There is mild tricuspid regurgitation. 6.Mild Pulmonary Hypertension. 7.Normal pericardium with no significant pericardial effusion. Electronically Signed By: Bob Benton 30-Jul-2017 15:40:57 -0800 Patient Name: DELILAH JAIN Study Date: 30-Jul-2017 [id number]
[2017-07-30] MEDS: TERAZOSIN 5 MG CAP PO SCH (21:00)
[2017-07-30] MEDS: INSULIN GLARGINE [LANtus] 3 ML PEN SC SCH (21:00)
[2017-07-30] MEDS: LATANOPROST 0.005% 2.5 ML OPH RIGHT EYE SCH (21:00)
[2017-07-30] MEDS: ATORVASTATIN 40 MG TAB PO SCH (21:00)
[2017-07-30] MEDS: oxyCODONE 5 MG TAB PO PRN (22:31)
--- NOTE | 2017-07-30 23:03 | PN ---
Date/Time of Note Date/Time of Note DATE: 07/30/17 TIME: 23:02 Assessment/Plan VTE Prophylaxis VTE Prophylaxis Intervention: other Lines/Catheters IV [facility]from [facility] Urinary Cath still in place: No Assessment/Plan Chief Complaint/Hosp Course IMPRESSION: 1. Acute coronary syndrome, rule out myocardial infarction. 2. Chronic kidney disease. 3. Anemia of CKD, no evidence of GI bleed. 4. Hypertension. 5. dm. 6. Rheumatoid arthritis. 7. Neuropathy. plan per cardio Problems: Subjective 24 Hr Interval Summary Subjective hx not possible: other (feeling better) Exam/Review of Systems Vital Signs Vitals Vital Signs Date Time Temp Pulse Resp B/P Pulse Ox O2 Delivery O2 Flow Rate FiO2 07/30/17 20:00 98.5 79 20 133/73 94 07/29/17 04:00 Nasal Cannula 2.0 Intake and Output 07/29/17 07/29/17 07/30/17 15:00 23:00 07:00 Intake Total 800 ml 650 ml Output Total 900 ml 600 ml Balance -100 ml 50 ml Exam Neck: supple Respiratory: clear to auscultation Cardiovascular: regular rate and rhythm Gastrointestinal: soft Musculoskeletal: nl extremities to inspection Extremities: normal pulses Results Result Diagram: 07/30/17 0607/30/17 06 Results 24 hrs Laboratory Tests Test 07/30/17 05:34 07/30/17 06:05 07/30/17 07:53 07/30/17 13:01 Lab Scanned Report BLOOD TRANSFUSION White Blood Count 9.5 # Red Blood Count 3.18 #L Hemoglobin 8.8 #L Hematocrit 27.9 #L Mean Corpuscular Volume 87.7 Mean Corpuscular Hemoglobin 27.7 L Mean Corpuscular Hemoglobin Concent 31.5 L Red Cell Distribution Width 16.1 H Platelet Count 398 Mean Platelet Volume 9.2 Neutrophils % 48.0 Lymphocytes % 36.7 Monocytes % 8.6 Eosinophils % 5.9 Basophils % 0.6 Nucleated Red Blood Cells % 0.0 Neutrophils # 4.5 Lymphocytes # 3.5 H Monocytes # 0.8 Eosinophils # 0.6 H Basophils # 0.1 Nucleated Red Blood Cells # 0.0 Sodium Level 140 Potassium Level 4.0 Chloride Level 97 Carbon Dioxide Level 32 H Anion Gap 15 Blood Urea Nitrogen 29 H Creatinine 1.37 H Glucose Level 93 Calcium Level 8.7 Total Bilirubin 0.6 Direct Bilirubin 0.00 Indirect Bilirubin 0.6 Aspartate Amino Transf (AST/SGOT) 18 Alanine Aminotransferase (ALT/SGPT) 15 Alkaline Phosphatase 77 Total Protein 7.3 # Albumin 3.5 Globulin 3.80 H Albumin/Globulin Ratio 0.92 Bedside Glucose 108 131 Medications Medications Current Medications Nitroglycerin (Nitroglycerin (Sl Tab) 0.4 Mg) 1 tab Q5M PRN SL ANGINA; Start 07/29/17 at 01:00 Insulin Glargine (Lantus) 5 unit QHS SC Last administered on 07/30/17 21:00; Admin Dose 5 UNIT; Start 07/29/17 at 01:00 Diagnostic Test (Pha) (Accu-Chek) 1 ea 02 XX ; Start 07/29/17 at 02:00 Morphine Sulfate (morphine) 2 mg Q4H PRN IV SEVERE PAIN LEVEL 7-10; Start 07/29 at 01:00 Acetaminophen (Tylenol Tab) 650 mg Q6H PRN PO PAIN AND OR ELEVATED TEMP; Start 07/29/17 at 01:00 Miscellaneous Information 1 ea NOTE XX ; Start 07/29/17 at 01:30 Glucose (Glutose) 15 gm Q15M PRN PO DECREASED GLUCOSE; Start 07/29/17 at 01:30 Glucose (Glutose) 22.5 gm Q15M PRN PO DECREASED GLUCOSE; Start 07/29/17 at 01: 30 Dextrose (D50w Syringe) 25 ml Q15M PRN IV DECREASED GLUCOSE; Start 07/29/17 at 01:30 Dextrose (D50w Syringe) 50 ml Q15M PRN IV DECREASED GLUCOSE; Start 07/29/17 at 01:30 Glucagon (Glucagen) 1 mg Q15M PRN IM DECREASED GLUCOSE; Start 07/29/17 at 01:30 Glucose (Glutose) 15 gm Q15M PRN BUCCAL DECREASED GLUCOSE; Start 07/29/17 at 01 :30 Allopurinol (Zyloprim) 100 mg DAILY PO Last administered on 07/30/17 09:09; Admin Dose 100 MG; Start 07/29/17 at 09:00 Aspirin (Halfprin) 81 mg DAILY PO Last administered on 07/30/17 09:09; Admin Dose 81 MG; Start 07/29/17 at 09:00 Latanoprost (Xalatan) 1 drop HS RIGHT EYE Last administered on 07/30/17 21:00 ; Admin Dose 1 DROP; Start 07/29/17 at 21:00 Eye Lubricant (Refresh Plus) 1 drop TID BOTH EYES Last administered on 13:03; Admin Dose 1 DROP; Start 07/29/17 at 09:00 Carvedilol (Coreg) 25 mg DAILY PO Last administered on 07/30/17 09:10; Admin Dose 25 MG; Start 07/29/17 at 09:00 Cholecalciferol (Vitamin D) 2,000 unit DAILY PO Last administered on 07/30/17 09:09; Admin Dose 2,000 UNIT; Start 07/29/17 at 09:00 Clopidogrel Bisulfate (plaVIX) 75 mg DAILY PO Last administered on 07/30/17 09 :09; Admin Dose 75 MG; Start 07/29/17 at 09:00 Famotidine (Pepcid) 20 mg DAILY PO Last administered on 07/30/17 09:09; Admin Dose 20 MG; Start 07/29/17 at 09:00 Ferrous Sulfate (Ferrous Sulfate (Ec)) 325 mg TID PO Last administered on 21:00; Admin Dose 325 MG; Start 07/29/17 at 09:00 Furosemide (Lasix) 40 mg DAILY PO Last administered on 07/30/17 09:11; Admin Dose 40 MG; Start 07/29/17 at 09:00 Pregabalin (Lyrica) 50 mg BID PO Last administered on 07/30/17 21:00; Admin Dose 50 MG; Start 07/29/17 at 09:00 Terazosin HCl (Hytrin) 10 mg HS PO Last administered on 07/30/17 21:00; Admin Dose 10 MG; Start 07/29/17 at 21:00 Loratadine (Claritin) 10 mg DAILY PO Last administered on 07/30/17 09:09; Admin Dose 10 MG; Start 07/29/17 at 09:00 Amlodipine Besylate (Norvasc) 10 mg DAILY PO Last administered on 07/30/17 09: 10; Admin Dose 10 MG; Start 07/29/17 at 11:00 Atorvastatin Calcium (Lipitor) 40 mg HS PO Last administered on 11/6/17at 21:00 ; Admin Dose 40 MG; Start 07/29/17 at 21:00 Oxycodone HCl (Oxycontin) 20 mg DAILY PO ; Start 07/31/17 at 09:00 Oxycodone HCl (Roxicodone) 5 mg Q6H PRN PO PAIN Last administered on 07/30/17t 22:31; Admin Dose 5 MG; Start 07/30/17 at 22:18 CAMPOS CESAR MD Jul 30, 2017 23:03
[2017-07-31] VITALS (10 sets, daily range): BP systolic 98–125; BP diastolic 52–61; PULSE 55–80; RESP 15–72
[2017-07-31] MEDS: ACCU-CHEK XX SCH (02:00)
[2017-07-31] MEDS: oxyCODONE 5 MG TAB PO PRN (06:14)
[2017-07-31] MEDS: LEVOTHYROXINE 125 MCG TAB PO SCH (06:14)
[2017-07-31] MEDS: INSULIN ASPART [NOVOLOG] 3 ML PEN SC SCH ×3 (08:00→17:20)
[2017-07-31] MEDS: CARBOXYMETHYLCELLULOSE 0.5% 0.1 ML OPH BOTH EYES SCH ×2 (08:42→13:13)
[2017-07-31] MEDS: FUROSEMIDE 40 MG TAB PO SCH (08:44)
[2017-07-31] MEDS: CHOLECALCIFEROL 2,000 UNIT CAP PO SCH (08:44)
[2017-07-31] MEDS: AMLODIPINE 10 MG TAB PO SCH (08:44)
[2017-07-31] MEDS: FAMOTIDINE 20 MG TAB PO SCH (08:44)
[2017-07-31] MEDS: PREGABALIN 50 MG CAP PO SCH (08:44)
[2017-07-31] MEDS: CLOPIDOGREL 75 MG TAB PO SCH (08:44)
[2017-07-31] MEDS: ALLOPURINOL 100 MG TAB PO SCH (08:45)
[2017-07-31] MEDS: FERROUS SULFATE (EC) 325 MG TAB PO SCH ×2 (08:45→13:58)
[2017-07-31] MEDS: ASPIRIN (EC) 81 MG TAB PO SCH (08:45)
[2017-07-31] MEDS: LORATADINE 10 MG TAB PO SCH (08:45)
[2017-07-31] MEDS ORDERED: oxyCODONE (CR) 10 MG TAB [oxyCONTIN] PO SCH (09:00)
--- NOTE | 2017-07-31 11:11 | CONS ---
Date/Time of Note Date/Time of Note DATE: 07/31/17 TIME: 11:09 Assessment/Plan Assessment/Plan Additional Assessment/Plan 1. Chest pain.-negative trop x 3 - stress test with NL EF, minimal rev disease vs artiifcat - MED Rx advised 2. Coronary artery disease, status post bypass surgery - no CP now, MED rx based on stress test results 3. Carotid endarterectomy- vascular to follow. 4. Hypertension- well Rx, meds reviewed. 5. Dyslipidemia. 6. Diabetes mellitus- on meds, keep euglycemic. 7. Benign prostatic hypertrophy. 8. Anemia. 9. Renal failure Consultation Date/Type/Reason Admit Date/Time Jul 28, 2017 at 21:03 Initial Consult Date Type of Consultation: cardiology Referring Provider: CAMPOS CESAR MD 24 HR Interval Summary Free Text/Dictation NO acute events - no sign rev ischemia by stress test - med rx advised ROS: No fever, no chills, no nausea, no vomiting, no diarrhea/constipation No recent weight changes No chest pain, no PND, no orthopnea No dizziness, blurred vision No thirst, no heat or cold intolerance Exam/Review of Systems Vital Signs Vitals Vital Signs Date Time Temp Pulse Resp B/P Pulse Ox O2 Delivery O2 Flow Rate FiO2 07/31/17 08:22 55 07/31/17 07:39 98.8 72 125/61 98 07/30/17 20:00 Room Air 07/29/17 04:00 2.0 Intake and Output 07/30/17 07/30/17 07/31/17 15:00 23:00 07:00 Intake Total 350 ml Output Total 850 ml Balance -500 ml Exam General: WN/WD/NAD, AOx 2-3 HEENT: Unicetric/atraumatic/EOMI (follow commands) NECK: JVD elevated, no thyromegaly Lymph: no lymphadenopathy HEART: regular with no S3, II/ systolic murmur at apex LUNGS: Coarse sounds ABD: soft, NT, ND, +BS : Intact Neuro: non focal SKIN: chronic changes EXT: trace edema Results Result Diagram: 07/30/17 0607/30/17 0605 Results 24 hrs Laboratory Tests Test 07/30/17 13:01 07/30/17 17:01 07/30/17 20:55 07/31/17 08:07 Bedside Glucose 131 124 129 107 Medications Medications Current Medications Nitroglycerin (Nitroglycerin (Sl Tab) 0.4 Mg) 1 tab Q5M PRN SL ANGINA; Start 07/29/17 at 01:00 Insulin Glargine (Lantus) 5 unit QHS SC Last administered on 07/30/17 21:00; Admin Dose 5 UNIT; Start 07/29/17 at 01:00 Diagnostic Test (Pha) (Accu-Chek) 1 ea 02 XX ; Start 07/29/17 at 02:00 Morphine Sulfate (morphine) 2 mg Q4H PRN IV SEVERE PAIN LEVEL 7-10; Start 07/29 at 01:00 Acetaminophen (Tylenol Tab) 650 mg Q6H PRN PO PAIN AND OR ELEVATED TEMP; Start 07/29/17 at 01:00 Miscellaneous Information 1 ea NOTE XX ; Start 07/29/17 at 01:30 Glucose (Glutose) 15 gm Q15M PRN PO DECREASED GLUCOSE; Start 07/29/17 at 01:30 Glucose (Glutose) 22.5 gm Q15M PRN PO DECREASED GLUCOSE; Start 07/29/17 at 01: 30 Dextrose (D50w Syringe) 25 ml Q15M PRN IV DECREASED GLUCOSE; Start 07/29/17 at 01:30 Dextrose (D50w Syringe) 50 ml Q15M PRN IV DECREASED GLUCOSE; Start 07/29/17 at 01:30 Glucagon (Glucagen) 1 mg Q15M PRN IM DECREASED GLUCOSE; Start 07/29/17 at 01:30 Glucose (Glutose) 15 gm Q15M PRN BUCCAL DECREASED GLUCOSE; Start 07/29/17 at 01 :30 Allopurinol (Zyloprim) 100 mg DAILY PO Last administered on 07/31/17 08:45; Admin Dose 100 MG; Start 07/29/17 at 09:00 Aspirin (Halfprin) 81 mg DAILY PO Last administered on 07/31/17 08:45; Admin Dose 81 MG; Start 07/29/17 at 09:00 Latanoprost (Xalatan) 1 drop HS RIGHT EYE Last administered on 07/30/17 21:00 ; Admin Dose 1 DROP; Start 07/29/17 at 21:00 Eye Lubricant (Refresh Plus) 1 drop TID BOTH EYES Last administered on 08:42; Admin Dose 1 DROP; Start 07/29/17 at 09:00 Carvedilol (Coreg) 25 mg DAILY PO Last administered on 07/31/17 08:45; Admin Dose 25 MG; Start 07/29/17 at 09:00 Cholecalciferol (Vitamin D) 2,000 unit DAILY PO Last administered on 07/31/17 08:44; Admin Dose 2,000 UNIT; Start 07/29/17 at 09:00 Clopidogrel Bisulfate (plaVIX) 75 mg DAILY PO Last administered on 07/31/17 08 :44; Admin Dose 75 MG; Start 07/29/17 at 09:00 Famotidine (Pepcid) 20 mg DAILY PO Last administered on 07/31/17 08:44; Admin Dose 20 MG; Start 07/29/17 at 09:00 Ferrous Sulfate (Ferrous Sulfate (Ec)) 325 mg TID PO Last administered on 08:45; Admin Dose 325 MG; Start 07/29/17 at 09:00 Furosemide (Lasix) 40 mg DAILY PO Last administered on 07/31/17 08:44; Admin Dose 40 MG; Start 07/29/17 at 09:00 Pregabalin (Lyrica) 50 mg BID PO Last administered on 07/31/17 08:44; Admin Dose 50 MG; Start 07/29/17 at 09:00 Terazosin HCl (Hytrin) 10 mg HS PO Last administered on 07/30/17 21:00; Admin Dose 10 MG; Start 07/29/17 at 21:00 Loratadine (Claritin) 10 mg DAILY PO Last administered on 07/31/17 08:45; Admin Dose 10 MG; Start 07/29/17 at 09:00 Amlodipine Besylate (Norvasc) 10 mg DAILY PO Last administered on 07/31/17 08: 44; Admin Dose 10 MG; Start 07/29/17 at 11:00 Atorvastatin Calcium (Lipitor) 40 mg HS PO Last administered on 07/30/17 21:00 ; Admin Dose 40 MG; Start 07/29/17 at 21:00 Oxycodone HCl (Oxycontin) 20 mg DAILY PO Last administered on 07/31/17 08:44; Admin Dose 20 MG; Start 07/31/17 at 09:00 Oxycodone HCl (Roxicodone) 5 mg Q6H PRN PO PAIN Last administered on 07/31/17t 06:14; Admin Dose 5 MG; Start 07/30/17 at 22:18 LOU PATINO MD Jul 31, 2017 11:11
--- NOTE | 2017-07-31 17:39 | PDOCDIS ---
Discharge Instructions CONDITION Patient Condition: Stable ACTIVITY: Activity Restrictions: Slowly Increase Activity FOLLOW UP/APPOINTMENTS Follow-up Plan f/u dr cesar [address] sanchez 1 wk CAMPOS CESAR MD Jul 31, 2017 17:39
[2017-07-31] MEDS ORDERED: NIT4 SL (17:42)
[2017-07-31] MEDS ORDERED: ATOR40TA68 PO (17:42)
[2017-07-31] MEDS ORDERED: AMLO-147 PO (17:42)
== END 2017-07-31 18:25 | disposition home or self-care (01) | DRG 313 ==
LOC: E/R 19:06 → MS4 21:03
PROVIDERS: ADMIT Internal Medicine Nephrology; ATTEND Internal Medicine Nephrology
DX: R07.9 Chest pain, unspecified (principal); I25.10 Atherosclerotic heart disease of native coronary artery without angina pectoris; E11.22 Type 2 diabetes mellitus with diabetic chronic kidney disease; I13.0 Hypertensive heart and chronic kidney disease with heart failure and stage 1 through stage 4 chronic kidney disease, or unspecified chronic kidney disease; I50.9 Heart failure, unspecified; E11.40 Type 2 diabetes mellitus with diabetic neuropathy, unspecified; E11.51 Type 2 diabetes mellitus with diabetic peripheral angiopathy without gangrene; D63.1 Anemia in chronic kidney disease; N18.9 Chronic kidney disease, unspecified; M06.9 Rheumatoid arthritis, unspecified; E78.5 Hyperlipidemia, unspecified; E03.9 Hypothyroidism, unspecified; Z95.1 Presence of aortocoronary bypass graft; Z79.82 Long term (current) use of aspirin; Z79.02 Long term (current) use of antithrombotics/antiplatelets; N40.0 Benign prostatic hyperplasia without lower urinary tract symptoms; Z79.4 Long term (current) use of insulin; Z88.0 Allergy status to penicillin; Z88.2 Allergy status to sulfonamides; Z83.3 Family history of diabetes mellitus; Z82.49 Family history of ischemic heart disease and other diseases of the circulatory system
CPT/HCPCS: 36415; 36430; 71010; 78452; 80053; 80061; 82550; 82553; 82962; 83540; 83880; 84484; 85025; 85610; 86850; 86900; 86901; 86920; 93005; 93017; 93306; 93971; 97164; A9500; A9505; J1815; J2785; J7040; P9016

== ENCOUNTER 2017-09-29 12:28 | Emergency (ER) | END 2017-09-29 21:50 | disposition home or self-care (01) ==

== ENCOUNTER 2017-10-02 13:42 | Emergency (ER) | END 2017-10-02 16:07 | disposition left against medical advice (07) ==

== ENCOUNTER 2017-12-02 11:49 | Emergency (ER) | END 2017-12-02 17:56 | disposition home or self-care (01) ==

== ENCOUNTER 2018-03-02 12:21 | Inpatient (IN) | END 2018-03-06 20:45 | disposition home health service (06) | DRG 690 ==

== ENCOUNTER 2018-06-16 19:51 | Observation (INO) | END 2018-06-18 18:02 | disposition home or self-care (01) ==

== ENCOUNTER 2018-12-15 17:21 | Inpatient (IN) | payer MEDICARE, BC ==
[~2018-12-15] VITALS: Ht 165.1 cm; Wt 72.2 kg
[~2018-12-15 17:21] MED LIST changes: -ASPI-664 PO; +ASPI81TA52 PO; +ATOR40TA68 PO; +BIMA5DRO BOTH EYES; +BISA5TAB6 PO; -CARV25TA79 PO; +CETI10TA19 PO; -CHOL200073 PO; +DOCU-216 PO; +ERGO2000 PO; -FAMO-96 PO; +FAMO20TA18 PO; +FER325 PO; +FOLI-49 PO; -INSU100C5 SC; +LANT3I SC; +LEVO125T71 PO; -LEVO125T75 PO; -LYR75 PO; +MEGE40TA PO; +METO-448 PO; -NIFE30TA60 PO; +NITR0.4T39 SL; -OXYC20TA41 PO; +PREG50CA PO; +Polyethylene Glycol PO; -RANO500T2 PO; +TERA10CA3 PO; -TERA10CA42 PO
[2018-12-15] MEDS ORDERED: SODIUM CHLORIDE 0.9% 1L BAG IV* STA (17:32)
[2018-12-15] MEDS ORDERED: AZITHROMYCIN 500MG/NS (PMX) 250 ML IV STA (17:32)
[2018-12-15] MEDS ORDERED: CEFTRIAXONE 1 GM/50 ML (PMX) 50 ML IVPB STA (17:32)
[2018-12-15] MEDS ORDERED: ACETAMINOPHEN 500 MG TAB PO STA (17:39)
[2018-12-15] MEDS ORDERED: LYRI25 PO (17:51)
[2018-12-15] MEDS ORDERED: METO25TA4 PO (17:53)
[2018-12-15] MEDS ORDERED: BISA5TAB6 PO (17:53)
[2018-12-15] MEDS ORDERED: NIFE60TA18 PO (17:54)
[2018-12-15] MEDS ORDERED: POLY17PO6 PO (17:55)
[2018-12-15] MEDS ORDERED: LEVOFLOXACIN 750MG/D5W (PMX) 150 ML IVPB ONE (18:30)
--- NOTE | 2018-12-15 18:41 | ERD ---
ER Documentation Chief Complaint Chief Complaint GEN WEAKNESS WITH FEVER WITH RECENT URI, NO NEURO DEF. NO SOB HPI 88-year-old male brought in by daughter for generalized weakness. He has been weak since yesterday with no other associated symptoms. He denies any chest pain, shortness of breath, headache, nausea, vomiting, abdominal pain, dysuria, diarrhea. ROS All systems reviewed and are negative except as per history of present illness. Medications Home Meds Reported Medications Polyethylene Glycol* (Miralax*) 17 Gm Powd.pack, 17 GM PO DAILY, #30 PACKET 12/15/18 Nifedipine* (Nifedipine ER*) 60 Mg Tablet.sa, 60 MG PO DAILY, TAB.SA 12/15/18 Metoprolol Tartrate* (Lopressor*) 25 Mg Tablet, 25 MG PO BID, #60 TAB 12/15/18 Bisacodyl* (Bisacodyl*) 5 Mg Tablet.dr, 10 MG PO BID PRN for CONSTIPATION, TAB 12/15/18 Pregabalin* (Lyrica*) 25 Mg Capsule, 25 MG PO TID, CAP 12/15/18 Bimatoprost* (Lumigan*) 0.01%-5 Ml Opht Drops, 1 DROP BOTH EYES HS, EA 03/02/18 Cetirizine Hcl* (Cetirizine Hcl*) 10 Mg Tablet, 10 MG PO DAILY, #30 TAB 03/02/18 Insulin Glargine* (Lantus*) 100 Unit/Ml Soln, 10 UNIT SC QHS, #1 VIAL 03/02/18 Ergocalciferol (Vitamin D2) (VITAMIN D2) 2,000 Unit Tablet, 2000 UNIT PO DAILY, TAB 03/02/18 Famotidine* (Famotidine*) 20 Mg Tablet, 20 MG PO DAILY, #30 TAB 03/02/18 Ferrous Sulfate* (Ferrous Sulfate*) 325 Mg Tabec, 325 MG PO BID, TAB 03/02/18 Aspirin (Low Dose Aspirin) 81 Mg Tablet.dr, 81 MG PO DAILY, #30 TAB 03/02/18 Nitroglycerin* (Nitrostat*) 0.4 Mg Tab.subl, 0.4 MG SL Q5MIN PRN for CHEST PAIN, BOTTLE 03/02/18 Terazosin Hcl* (Terazosin Hcl*) 10 Mg Capsule, 10 MG PO HS, CAP 03/02/18 Levothyroxine Sodium* (Levoxyl*) 125 Mcg Tablet, 125 MCG PO BEFORE BREAKFAST, #3 0 TAB 03/02/18 Allopurinol* (Allopurinol*) 100 Mg Tablet, 100 MG PO BID, TAB 03/02/18 Atorvastatin* (Atorvastatin*) 40 Mg Tablet, 40 MG PO QHS, #30 TAB 03/02/18 Clopidogrel Bisulfate (Clopidogrel) 75 Mg Tablet, 75 MG PO DAILY, #30 TAB 03/02/18 Folic Acid* (Folic Acid*) 1 Mg Tablet, 1 MG PO DAILY, TAB 03/02/18 Discontinued Reported Medications Pregabalin* (Lyrica*) 50 Mg Capsule, 50 MG PO BID, CAP 03/02/18 Discontinued Scripts Megestrol Acetate* (Megace*) 40 Mg Tab, 80 MG PO BID for 10 Days, #20 TAB Prov:CAMPOS CESAR MD 06/18/18 Bisacodyl* (Bisacodyl*) 5 Mg Tablet.dr, 10 MG PO BID PRN for CONSTIPATION for 28 Days Prov:CAMPOS CESAR MD 06/18/18 Docusate Sodium (Dok) 100 Mg Capsule, 100 MG PO TID for 28 Days, #30 CAP Prov:CAMPOS CESAR MD 06/18/18 [Polyethylene Glycol] 17 GM/PKT LIQ No Conflict Check, 17 GM PO DAILY for 28 Days, #30 Prov:CAMPOS CESAR MD 06/18/18 Metoprolol Tartrate* (Lopressor*) 25 Mg Tab, 25 MG PO BID for 30 Days, TAB hold if hr<60 and sbp<100 Prov:IVAN AKHTAR MD 03/06/18 Allergies Allergies: Coded Allergies: Penicillins (Verified Allergy, Severe, shortness of breath, 12/15/18) Sulfa (Sulfonamide Antibiotics) (Verified Allergy, Severe, Shortness of breath, 12/15/18) sulfadiazine (Verified Allergy, Severe, shortness of breath, 12/15/18) PMhx/Soc History of Surgery: Yes (CABG ) Anesthesia Reaction: No Hx Neurological Disorder: Yes (neuropathy) Hx Respiratory Disorders: No Hx Cardiac Disorders: Yes (HTN, anemia, CAD, atherosclerotic heart disease, A- fib) Hx Psychiatric Problems: No Hx Miscellaneous Medical Probl: Yes (pls see EMR) Hx Alcohol Use: No Hx Substance Use: No Hx Tobacco Use: No Smoking Status: Never smoker FmHx Family History: No coronary disease Physical Exam Vitals Vital Signs Date Temp Pulse Resp B/P (MAP) Pulse Ox O2 O2 Flow FiO2 Time Delivery Rate 12/15/18 102.5 69 24 162/72 93 17:24 (102) Physical Exam Const: No acute distress, appears somewhat weak. Nontoxic Head: Atraumatic Eyes: Normal Conjunctiva, PERRLA, EOMI ENT: Dry oral mucosa. Normal External Ears, Nose and Mouth. Neck: Full range of motion. No meningismus. Chest wall: Midline sternotomy scar noted Resp: Clear to auscultation bilaterally Cardio: Irregularly irregular rhythm with normal rate, no murmurs Abd: Soft, non tender, non distended. Normal bowel sounds Skin: No petechiae or rashes Back: No midline or flank tenderness Ext: No cyanosis, or edema. 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 Unable to assess gait secondary to weakness Psych: Normal Mood and Affect Result Diagram: 12/15/18 1746 12/15/18 1745 Results 24 hrs Laboratory Tests Test 12/15/18 17:45 12/15/18 17:46 12/15/18 18:20 Prothrombin Time 16.5 Sec Prothrombin Time Ratio 1.3 INR International 1.32 Normalized Ratio Activated Partial Thromboplast 30.9 Sec Time Sodium Level 141 mmol/L Potassium Level 4.9 mmol/L Chloride Level 106 mmol/L Carbon Dioxide Level 24 mmol/L Anion Gap 11 Blood Urea Nitrogen 43 mg/dl Creatinine 2.10 mg/dl Est Glomerular Filtrat mL/min Rate mL/min Glucose Level 138 mg/dl Lactic Acid Level 1.6 mmol/L Calcium Level 9.2 mg/dl Total Bilirubin 0.9 mg/dl Direct Bilirubin 0.00 mg/dl Indirect Bilirubin 0.9 mg/dl Aspartate Amino 26 IU/L Transf (AST/SGOT) Alanine 16 IU/L Aminotransferase (ALT/SGPT) Alkaline Phosphatase 80 IU/L Troponin I < 0.012 ng/ml Total Protein 8.1 g/dl Albumin 4.2 g/dl Globulin 3.90 g/dl Albumin/Globulin Ratio 1.07 White Blood Count 11.1 10^3/ul Red Blood Count 2.89 10^6/ul Hemoglobin 8.7 g/dl Hematocrit 26.8 % Mean Corpuscular Volume 92.7 fl Mean Corpuscular Hemoglobin 30.1 pg Mean Corpuscular 32.5 g/dl Hemoglobin Concent Red Cell Distribution Width 15.2 % Platelet Count 195 10^3/UL Mean Platelet Volume 9.5 fl Immature Granulocytes % 0.500 % Neutrophils % 77.0 % Lymphocytes % 12.9 % Monocytes % 9.1 % Eosinophils % 0.2 % Basophils % 0.3 % Nucleated Red Blood Cells % 0.0 /100WBC Immature Granulocytes # 0.060 10^3/ul Neutrophils # 8.6 10^3/ul Lymphocytes # 1.4 10^3/ul Monocytes # 1.0 10^3/ul Eosinophils # 0.0 10^3/ul Basophils # 0.0 10^3/ul Nucleated Red Blood Cells # 0.0 10^3/ul Urine Color YELLOW Urine Clarity SLIGHTLY CLOUDY Urine pH 5.0 Urine Specific [place] 1.013 Urine Ketones NEGATIVE mg/dL Urine Nitrite NEGATIVE mg/dL Urine Bilirubin NEGATIVE mg/dL Urine Urobilinogen NEGATIVE mg/dL Urine Leukocyte Esterase NEGATIVE [place]/ul Urine Microscopic RBC 4 /HPF Urine Microscopic WBC 1 /HPF Urine Squamous Epithelial Cells FEW /HPF Urine Hemoglobin 1+ mg/dL Urine Glucose NEGATIVE mg/dL Urine Total Protein NEGATIVE mg/dl Current Medications Medications Dose Sig/Geeta Start Time Status Last (Trade) Ordered Route PRN Stop Time Admin Dose Reason Admin Sodium 2,110 ml BOLUS OVER 2 12/15/18 DC 12/15/18 Chloride HOURS STAT 17:32 17:49 (NS) IV* 12/15/18 17:33 Ceftriaxone 50 ml @ ONCE STAT 12/15/18 DC Sodium 100 mls/hr IVPB 17:32 12/15/18 18:01 Azithromycin 250 ml @ ONCE STAT 12/15/18 DC 250 mls/hr IV 17:32 12/15/18 17:41 1,000 mg ONCE STAT 12/15/18 DC 12/15/18 Acetaminophen PO 17:39 18:02 (Tylenol 12/15/18 17:40 Tab) 150 ml @ ONCE ONCE 12/15/18 DC 12/15/18 Levofloxacin/ 100 mls/hr IVPB 18:30 19:17 Dextrose 12/15/18 19:59 Procedures/MDM EMERGENT LABS AND DIAGNOSTIC STUDIES: Lab Results above were reviewed and interpreted by me. CBC: Mild leukocytosis, concerning for infection. Mild anemia, likely secondary to chronic disease, stable when compared to prior CMP: Elevated BUN and creatinine, consistent with renal insufficiency. No evidence of electrolyte abnormality, hypoglycemia, liver failure, or biliary obstruction Troponin within normal limits, not indicative of cardiac ischemia Lactate within normal limits without evidence of sepsis or tissue hypoperfusion UA: no evidence of infection 12-lead EKG was interpreted by Teresa Azul MD: Atrial fibrillation at 78 bpm Normal axis Normal intervals No acute ST or T wave changes suggestive of acute ischemia or STEMI. Radiology Results as interpreted by Radiology below were reviewed by Gold Azul MD: CXR: IMPRESSION: 1. Status post median sternotomy and CABG. 2. The lungs are hyperinflated, suggesting COPD. 3. No consolidative pulmonary infiltrates noted. 4. There is no significant interval change from the previous study. Initial Nursing notes reviewed. Previous Medical Records requested via the Electronic Health Record. EMERGENCY DEPARTMENT COURSE / MEDICAL DECISION MAKING: Patient presented with generalized weakness with vitals notable for fever, tachypnea, and hypoxia on room air. Sepsis workup was initiated. However no source of infection was found on exam. Lactate was within normal limits with no evidence of severe sepsis or septic shock. Patient's creatinine is elevated when compared to baseline, consistent with acute on chronic renal failure. He does have anemia which is chronic for him and unchanged. The source of his fever is unclear at this time. I doubt meningitis. Cannot rule out bacteremia. He did receive antibiotics prophylactically empirically as he is high risk for occult infection. Patient has not stable for discharge and will require admission for further workup and management. Critical Care Time: 35 minutes Treatments/Evaluations: Close monitoring and treatment of unstable vital signs, cardiorespiratory, and neurologic status, while maintaining tight balance of fluid, respiratory, and cardiac interventions. This time includes discussing the case with the patient and the patients family. This time does not include all procedures stated elsewhere in this record. This time also includes reviewing old records, labs and radiological studies. This time includes examining and re- examining the patient. Additionally, this time also includes arranging care with admitting and consulting physicians. Accepting Care Team: Current data and ongoing care discussed. Time: Time of admission Primary Provider: Dr. Akhtar Departure Diagnosis: Primary Impression: Acute on chronic renal insufficiency Additional Impressions: Acute weakness Chronic anemia SIRS (systemic inflammatory response syndrome) Condition: MARCELA Powell MD Dec 15, 2018 18:41
[2018-12-15] MEDS ORDERED: ACETAMINOPHEN 325 MG TAB PO PRN (19:00)
[2018-12-15] MEDS ORDERED: ONDANSETRON 4 MG INJ IV PRN (19:00)
[2018-12-15 22:54] VITALS: PULSE 77
[2018-12-15 23:03] VITALS: Ht 165.1 cm; Wt 72.2 kg
[2018-12-15 23:15] VITALS: BP 165/75; PULSE 72; RESP 18
[2018-12-16] VITALS (11 sets, daily range): BP systolic 133–167; BP diastolic 60–74; PULSE 61–81; RESP 17–20
[2018-12-16] MEDS ORDERED: BISACODYL (EC) 5 MG TAB PO PRN
[2018-12-16] MEDS ORDERED: VANCOMYCIN IV PER PHARMACY XX SCH
[2018-12-16] MEDS ORDERED: POLYETHYLENE GLYCOL 17 GM PACKET PO PRN
[2018-12-16] MEDS ORDERED: NITROGLYCERIN (SL) 0.4 MG TAB SL PRN
[2018-12-16] MEDS ORDERED: ONDANSETRON 4 MG INJ IV PRN
[2018-12-16] MEDS: LATANOPROST 0.005% 2.5 ML OPH BOTH EYES SCH ×2 (02:00→21:00)
[2018-12-16] MEDS: METOPROLOL 25 MG TAB PO SCH ×2 (02:10→21:38)
[2018-12-16] MEDS: ACCU-CHEK XX SCH (02:19)
[2018-12-16] MEDS ORDERED: VANCOMYCIN HCL 1.5 GM in SOD CHLORIDE 0.9% 250 ML IVPB SCH (04:00)
[2018-12-16] MEDS: LEVALBUTEROL (NEB) 1.25 MG/0.5 ML AMP HHN PRN (04:02)
[2018-12-16] MEDS ORDERED: METHYLPREDNISOLONE 125 MG INJ IV ONE (05:30)
[2018-12-16] MEDS ORDERED: FUROSEMIDE 40 MG INJ IV ONE ×2 (05:30→10:30)
[2018-12-16] MEDS ORDERED: PANTOPRAZOLE 40 MG INJ IV SCH (06:00)
[2018-12-16] MEDS: LEVOTHYROXINE 125 MCG TAB PO SCH (06:23)
[2018-12-16] MEDS: LEVALBUTEROL (NEB) 1.25 MG/0.5 ML AMP HHN SCH ×3 (08:00→21:50)
[2018-12-16] MEDS: ACETAMINOPHEN 325 MG TAB PO PRN ×2 (08:09→22:42)
[2018-12-16] MEDS: PREGABALIN 25 MG CAP PO SCH ×3 (08:09→21:37)
[2018-12-16] MEDS: ALLOPURINOL 100 MG TAB PO SCH ×2 (08:10→21:38)
[2018-12-16] MEDS: CHOLECALCIFEROL 2,000 UNIT CAP PO SCH (08:10)
[2018-12-16] MEDS: FAMOTIDINE 20 MG TAB PO SCH (08:10)
[2018-12-16] MEDS: FOLIC ACID 1 MG TAB PO SCH (08:10)
[2018-12-16] MEDS: CLOPIDOGREL 75 MG TAB PO SCH (08:10)
[2018-12-16] MEDS: FERROUS SULFATE (EC) 325 MG TAB PO SCH ×2 (08:10→21:37)
[2018-12-16] MEDS: ASPIRIN (EC) 81 MG TAB PO SCH (08:10)
[2018-12-16] MEDS: NIFEdipine (XL) 60 MG TAB PO SCH (08:11)
[2018-12-16] MEDS: LORATADINE 10 MG TAB PO SCH (08:11)
[2018-12-16] MEDS: INSULIN ASPART [NOVOLOG] 3 ML PEN SC SCH ×4 (08:22→21:40)
[2018-12-16] MEDS ORDERED: LEVOFLOXACIN 500MG/D5W (PMX) 100 ML IVPB SCH (09:00)
--- NOTE | 2018-12-16 10:16 | QN ---
Documentation Comment seen and examined IVAN AKHTAR MD Dec 16, 2018 10:15
[2018-12-16] MEDS ORDERED: GLUCAGON 1 MG INJ IM PRN (10:30)
[2018-12-16] MEDS ORDERED: DEXTROSE 50% 50 ML SYRINGE IV PRN ×2 (10:30)
[2018-12-16] MEDS ORDERED: GLUCOSE GEL 15 GRAM TUBE BUCCAL PRN (10:30)
[2018-12-16] MEDS ORDERED: GLUCOSE GEL 15 GRAM TUBE PO PRN ×2 (10:30)
--- NOTE | 2018-12-16 11:10 | CONS ---
Assessment/Plan Assessment/Plan Assessment/Plan (Daily) Assessment and recommendations; 1. Patient admitted with shortness of breath is likely is a combination of CHF with possibly bronchitis/bronchopneumonia. Currently on appropriate treatment regimen. 2. Underlying cardiomyopathy. Exacerbated by fluid administration. Patient given intravenous Lasix with improvement in symptoms. 3. Prior CABG. 4. Possibly underlying mild renal insufficiency. 5. History of diabetes, gout, hypothyroidism. 6. Mild anemia and thrombocytopenia. 7. Possibly some element of UTI as well. Agree with administration of Lasix. Continue current supportive care. Obtain follow-up chest x-ray in 24 hours. 2D echocardiogram is currently being done at bedside, results are pending. Consultation Date/Type/Reason Admit Date/Time Dec 15, 2018 at 18:41 Date of Consultation: Dec 16, 2018 Type of Consult Pulmonary Pulmonary consult requested for evaluation of shortness of breath. Patient is a pleasant 88-year-old gentleman who came into the hospital yesterday with a few hours history of shortness of breath. Upon evaluation chest x-ray was done which is showing changes consistent with mild CHF. Patient also been complaining of cough wheezing as well as scant sputum production. Also had low- grade fever yesterday. Denies any abdominal pain, nausea vomiting, any high- grade fever body aches or myalgias. Past medical history; 1. Mild chronic renal insufficiency. 2. History of prior CABG. 3. 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 4. History of hypertension and diabetes. 5. History of gout and hypothyroidism. Medications; reviewed. Allergies; as outlined above. Social history; patient has been a cigar smoker. Family history; he is a , lives with his daughter. 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 Review of systems; denies any headache, sinus symptoms. Any seizures. Denies any dysphagia, sore throat, chest pain, angina, complains of cough and wheezing. Complains of scant sputum production. Denies any hemoptysis. Denies any abdominal pain, nausea vomiting. Any GI or urinary symptoms. Complains of very mild orthopnea. Denies any edema. Any weight change. General exam; elderly male, awake alert, currently no distress. Date/Time of Note DATE: 12/16/18 TIME: 11:05 Past Medical History Home Meds Reported Medications Polyethylene Glycol* (Miralax*) 17 Gm Powd.pack, 17 GM PO DAILY, #30 PACKET 3/24/19 Nifedipine* (Nifedipine ER*) 60 Mg Tablet.sa, 60 MG PO DAILY, TAB.SA 12/15/18 Metoprolol Tartrate* (Lopressor*) 25 Mg Tablet, 25 MG PO BID, #60 TAB 12/15/18 Bisacodyl* (Bisacodyl*) 5 Mg Tablet.dr, 10 MG PO BID PRN for CONSTIPATION, TAB 12/15/18 Pregabalin* (Lyrica*) 25 Mg Capsule, 25 MG PO TID, CAP 12/15/18 Bimatoprost* (Lumigan*) 0.01%-5 Ml Opht Drops, 1 DROP BOTH EYES HS, EA 03/02/18 Cetirizine Hcl* (Cetirizine Hcl*) 10 Mg Tablet, 10 MG PO DAILY, #30 TAB 03/02/18 Insulin Glargine* (Lantus*) 100 Unit/Ml Soln, 10 UNIT SC QHS, #1 VIAL 03/02/18 Ergocalciferol (Vitamin D2) (VITAMIN D2) 2,000 Unit Tablet, 2000 UNIT PO DAILY, TAB 03/02/18 Famotidine* (Famotidine*) 20 Mg Tablet, 20 MG PO DAILY, #30 TAB 03/02/18 Ferrous Sulfate* (Ferrous Sulfate*) 325 Mg Tabec, 325 MG PO BID, TAB 03/02/18 Aspirin (Low Dose Aspirin) 81 Mg Tablet.dr, 81 MG PO DAILY, #30 TAB 03/02/18 Nitroglycerin* (Nitrostat*) 0.4 Mg Tab.subl, 0.4 MG SL Q5MIN PRN for CHEST PAIN, BOTTLE 03/02/18 Terazosin Hcl* (Terazosin Hcl*) 10 Mg Capsule, 10 MG PO HS, CAP 03/02/18 Levothyroxine Sodium* (Levoxyl*) 125 Mcg Tablet, 125 MCG PO BEFORE BREAKFAST, #30 TAB 03/02/18 Allopurinol* (Allopurinol*) 100 Mg Tablet, 100 MG PO BID, TAB 03/02/18 Atorvastatin* (Atorvastatin*) 40 Mg Tablet, 40 MG PO QHS, #30 TAB 03/02/18 Clopidogrel Bisulfate (Clopidogrel) 75 Mg Tablet, 75 MG PO DAILY, #30 TAB 03/02/18 Folic Acid* (Folic Acid*) 1 Mg Tablet, 1 MG PO DAILY, TAB 03/02/18 Discontinued Reported Medications Pregabalin* (Lyrica*) 50 Mg Capsule, 50 MG PO BID, CAP 03/02/18 Discontinued Scripts Megestrol Acetate* (Megace*) 40 Mg Tab, 80 MG PO BID for 10 Days, #20 TAB Prov:CAMPOS CESAR MD 06/18/18 Bisacodyl* (Bisacodyl*) 5 Mg Tablet.dr, 10 MG PO BID PRN for CONSTIPATION for 28 Days Prov:CAMPOS CESAR MD 06/18/18 Docusate Sodium (Dok) 100 Mg Capsule, 100 MG PO TID for 28 Days, #30 CAP Prov:CAMPOS CESAR MD 06/18/18 [Polyethylene Glycol] 17 GM/PKT LIQ No Conflict Check, 17 GM PO DAILY for 28 Days, #30 Prov:CAMPOS CESAR MD 06/18/18 Metoprolol Tartrate* (Lopressor*) 25 Mg Tab, 25 MG PO BID for 30 Days, TAB hold if hr<60 and sbp<100 Prov:IVAN AKHTAR MD 03/06/18 Medications Current Medications Allopurinol (Zyloprim) 100 mg BID PO Last administered on 12/16/18 08:10; Admin Dose 100 MG; Start 12/16/18 at 09:00 Aspirin (Halfprin) 81 mg DAILY PO Last administered on 12/16/18at 08:10; Admin Dose 81 MG; Start 12/16/18 at 09:00 Atorvastatin Calcium (Lipitor) 40 mg QHS PO ; Start 12/16/18 at 21:00 Latanoprost (Xalatan) 1 drop HS BOTH EYES ; Start 12/16/18 at 02:00 Bisacodyl (Dulcolax) 10 mg BID PRN PO CONSTIPATION; Start 12/16/18 at 00:00 Clopidogrel Bisulfate (plaVIX) 75 mg DAILY PO Last administered on 12/16/18 08:10; Admin Dose 75 MG; Start 12/16/18 at 09:00 Famotidine (Pepcid) 20 mg DAILY PO Last administered on 12/16/18 08:10; Admin Dose 20 MG; Start 12/16/18 at 09:00 Ferrous Sulfate (Ferrous Sulfate (Ec)) 325 mg BID PO Last administered on 12/16/18 08:10; Admin Dose 325 MG; Start 12/16/18 at 09:00 Folic Acid (Folic Acid) 1 mg DAILY PO Last administered on 12/16/18 08:10; Admin Dose 1 MG; Start 12/16/18 at 09:00 Insulin Glargine (Lantus) 10 units QHS SC ; Start 12/16/18 at 21:00 Levothyroxine Sodium (Synthroid) 125 mcg BEFORE BREAKFAST PO Last administered on 12/16/18 06:23; Admin Dose 125 MCG; Start 12/16/18 at 07:00 Metoprolol Tartrate (Lopressor) 25 mg BID PO Last administered on 12/16/18 02:10; Admin Dose 25 MG; Start 12/16/18 at 01:35 Nifedipine (Procardia Xl) 60 mg DAILY PO Last administered on 12/16/18 08:11; Admin Dose 60 MG; Start 12/16/18 at 09:00 Nitroglycerin (Nitroglycerin (Sl Tab) 0.4 Mg) 0.4 tab [id number] PRN SL CHEST PAIN; Start 12/16/18 at 00:00 Polyethylene Glycol (Miralax) 17 gm PRN PRN PO Constipation; Start 12/16/18 at 00:00 Pregabalin (Lyrica) 25 mg TID PO Last administered on 12/16/18 08:09; Admin Dose 25 MG; Start 12/16/18 at 09:00 Terazosin HCl (Hytrin) 10 mg HS PO ; Start 12/16/18 at 21:00 Loratadine (Claritin) 10 mg DAILY PO Last administered on 12/16/18 08:11; Admin Dose 10 MG; Start 12/16/18 at 09:00 Cholecalciferol (Vitamin D) 2,000 unit DAILY PO Last administered on 12/16/18 08:10; Admin Dose 2,000 UNIT; Start 12/16/18 at 09:00 Acetaminophen (Tylenol Tab) 650 mg Q6H PRN PO MILD PAIN(1-3)OR ELEVATED TEMP Last administered on 12/16/18 08:09; Admin Dose 650 MG; Start 12/16/18 at 00:00 Ondansetron HCl (Zofran Inj) 4 mg Q4H PRN IV NAUSEA AND/OR VOMITING; Start 12/16/18 at 00:00 Vancomycin HCl (Vanco Iv Per Pharmacy) VANCOMYCIN PER PHARMACY PER PROTOCOL XX ; Start 12/16/18 at 00:00 Diagnostic Test (Pha) (Accu-Chek) 1 ea 02 XX Last administered on 12/16/18at 02:19; Admin Dose 1 EA; Start 12/16/18 at 02:00 Insulin Aspart (Novolog Insulin Pen) NOVOLOG *MILD* ALGORITHM WITH MEALS BEDTIM E SC Last administered on 12/16/18at 08:22; Admin Dose 2 UNIT; Start 12/16/18 at 07:55 Levalbuterol (Xopenex Neb) 1.25 mg Q6H RESP THERAPY HHN ; Start 12/16/18 at 08:00 Levalbuterol (Xopenex Neb) 1.25 mg Q2H RESP THERAPY PRN HHN Wheezing Last administered on 12/16/18at 04:02; Admin Dose 1.25 MG; Start 12/16/18 at 03:30 Miscellaneous Information (* Miscellaneous Pharmacy Order) Bimatoprost (Lunigan) 0.01%-... ONCE XX ; Start 12/16/18 at 03:30 Miscellaneous Information 1 ea NOTE XX ; Start 12/16/18 at 10:30 Glucose (Glutose) 15 gm Q15M PRN PO DECREASED GLUCOSE; Start 12/16/18 at 10:30 Glucose (Glutose) 22.5 gm Q15M PRN PO DECREASED GLUCOSE; Start 12/16/18 at 10:30 Dextrose (D50w Syringe) 25 ml Q15M PRN IV DECREASED GLUCOSE; Start 12/16/18 at 10:30 Dextrose (D50w Syringe) 50 ml Q15M PRN IV DECREASED GLUCOSE; Start 12/16/18 at 10:30 Glucagon (Glucagen) 1 mg Q15M PRN IM DECREASED GLUCOSE; Start 12/16/18 at 10:30 Glucose (Glutose) 15 gm Q15M PRN BUCCAL DECREASED GLUCOSE; Start 12/16/18 at 10:30 Methylprednisolone Sodium Succinate (Solu-Medrol) 40 mg Q12 IV ; Start 12/16/18 at 10:30 Levofloxacin/ Dextrose 100 ml @ 100 mls/hr Q48H IVPB ; Start 12/18/18 at 09:00 Clonidine (Catapres) 0.1 mg Q6H PRN PO SBP>170; Start 12/16/18 at 11:00 Vancomycin HCl 250 ml @ 125 mls/hr Q36H IVPB ; Start 12/17/18 at 16:00 Allergies: Coded Allergies: Penicillins (Verified Allergy, Severe, shortness of breath, 12/15/18) Sulfa (Sulfonamide Antibiotics) (Verified Allergy, Severe, Shortness of breath, 12/15/18) sulfadiazine (Verified Allergy, Severe, shortness of breath, 12/15/18) Social History Smoking Status: Former smoker Exam/Review of Systems Exam Vitals Vital Signs Date Temp Pulse Resp B/P (MAP) Pulse Ox O2 O2 Flow FiO2 Time Delivery Rate 12/16/18 98.6 09:21 12/16/18 4.0 09:14 12/16/18 74 20 95 Nasal 09:14 Cannula 12/16/18 167/74 07:20 (105) Intake and Output 12/15/18 12/15/18 12/16/18 1414:59 22:59 06:59 IntakeIntake Total 2260 ml 400 ml OutputOutput Total 600 ml BalanceBalance 2260 ml -200 ml Exam HEENT exam; supple neck, positive JVD. No lymphadenopathy. Midline trachea. No thyromegaly. Patient has dentures in place. No neck masses. Pupils are sm all bilaterally. Pharynx is clear. Chest exam; minimal bilateral expiratory wheezing. S1-S2 audible, no murmurs. Regular rhythm. There is a well-healed sternal scar. Abdomen exam; soft, nontender. No organomegaly. Bowel sounds audible. Extremity exam; no peripheral edema. Pulses are diminished in lower extremities. [employer] exam; no focal deficit. Results Result Diagram: 12/16/18 0513 12/16/18 0513 Results 24hrs Laboratory Tests Test 12/15/18 17:45 12/15/18 17:46 12/15/18 18:20 12/15/18 19:47 Prothrombin Time 16.5 H Prothrombin Time 1.3 Ratio INR 1.32 International Normalized Ratio Activated 30.9 Partial Thrombop last Time Sodium Level 141 Potassium Level 4.9 Chloride Level 106 Carbon Dioxide 24 Level Anion Gap 11 Blood Urea 43 H Nitrogen Creatinine 2.10 H Est Glomerular Filtrat Rate mL/min Glucose Level 138 Lactic Acid 1.6 0.8 Level Calcium Level 9.2 Total Bilirubin 0.9 Direct Bilirubin 0.00 Indirect 0.9 Bilirubin Aspartate Amino 26 Transf (AST/SGOT ) Alanine 16 Aminotransferase (ALT/SGPT) Alkaline 80 Phosphatase Troponin I < 0.012 Total Protein 8.1 Albumin 4.2 Globulin 3.90 H Albumin/Globulin 1.07 Ratio White Blood 11.1 #H Count Red Blood Count 2.89 L Hemoglobin 8.7 L Hematocrit 26.8 L Mean Corpuscular 92.7 Volume Mean Corpuscular 30.1 Hemoglobin Mean Corpuscular 32.5 Hemoglobin June nt Red Cell 15.2 H Distribution Width Platelet Count 195 # Mean Platelet 9.5 Volume Immature 0.500 H Granulocytes % Neutrophils % 77.0 Lymphocytes % 12.9 L Monocytes % 9.1 Eosinophils % 0.2 Basophils % 0.3 Nucleated Red 0.0 Blood Cells % Immature 0.060 H Granulocytes # Neutrophils # 8.6 H Lymphocytes # 1.4 Monocytes # 1.0 H Eosinophils # 0.0 Basophils # 0.0 Nucleated Red 0.0 Blood Cells # Urine Color YELLOW Urine Clarity SLIGHTLY CLOUDY A Urine pH 5.0 Urine Specific 1.013 [place] Urine Ketones NEGATIVE Urine Nitrite NEGATIVE Urine Bilirubin NEGATIVE Urine NEGATIVE Urobilinogen Urine Leukocyte NEGATIVE Esterase Urine 4 Microscopic RBC Urine 1 Microscopic WBC Urine Squamous FEW Epithelial Cells Urine Hemoglobin 1+ H Urine Glucose NEGATIVE Urine Total NEGATIVE Protein Test 12/15/18 21:41 12/16/18 02:12 12/16/18 05:13 12/16/18 05:21 Lactic Acid 1.0 Level Bedside Glucose 129 White Blood 13.0 H Count Red Blood Count 2.79 L Hemoglobin 8.4 L Hematocrit 26.1 L Mean Corpuscular 93.5 Volume Mean Corpuscular 30.1 Hemoglobin Mean Corpuscular 32.2 Hemoglobin June nt Red Cell 15.2 H Distribution Width Platelet Count 183 Mean Platelet 10.4 Volume Immature 0.500 H Granulocytes % Neutrophils % 77.9 H Lymphocytes % 11.3 L Monocytes % 9.8 Eosinophils % 0.2 Basophils % 0.3 Nucleated Red 0.0 Blood Cells % Immature 0.070 H Granulocytes # Neutrophils # 10.1 H Lymphocytes # 1.5 Monocytes # 1.3 H Eosinophils # 0.0 Basophils # 0.0 Nucleated Red 0.0 Blood Cells # Sodium Level 142 Potassium Level 4.6 Chloride Level 108 Carbon Dioxide 21 Level Anion Gap 13 Blood Urea 40 H Nitrogen Creatinine 1.75 H Est Glomerular Filtrat Rate mL/min Glucose Level 153 Calcium Level 8.4 Blood Gas Blood arterial Specimen Source Arterial Blood 12/16/2018 5:40: Date Drawn 15 AM Arterial Blood 7.397 pH (Temp corrected) Arterial Blood 32.9 L pCO2 (Temp correct) Arterial Blood 61.9 L pO2 (Temp corrected) Arterial Blood 19.8 L HCO3 Arterial Blood -4.4 L Base Excess Arterial Blood 90.9 L Oxygen Saturatio n Manuel Test N/A Arterial Blood Right Radial Gas Puncture Site Arterial 0.1 Blood Carboxyhem oglobin Arterial Blood 0.2 Methemoglobin Blood Gas A-a O2 178.3 H Differential Oxyhemoglobin 90.6 L Percent Blood Gas 37.0 Temperature Blood Gas Actual 24 Respiration Rate Blood Gas NASAL CANNULA Modality FiO2 39.0 Blood Gas S.H. Notified Whom Blood Gas 12/16/2018 5:50: Notified Time 20 AM Test 12/16/18 07:55 Bedside Glucose 188 Medications Medication Current Medications Allopurinol (Zyloprim) 100 mg BID PO Last administered on 12/16/18 08:10; Admin Dose 100 MG; Start 12/16/18 at 09:00 Aspirin (Halfprin) 81 mg DAILY PO Last administered on 12/16/18 08:10; Admin Dose 81 MG; Start 12/16/18 at 09:00 Atorvastatin Calcium (Lipitor) 40 mg QHS PO ; Start 12/16/18 at 21:00 Latanoprost (Xalatan) 1 drop HS BOTH EYES ; Start 12/16/18 at 02:00 Bisacodyl (Dulcolax) 10 mg BID PRN PO CONSTIPATION; Start 12/16/18 at 00:00 Clopidogrel Bisulfate (plaVIX) 75 mg DAILY PO Last administered on 12/16/18 08:10; Admin Dose 75 MG; Start 12/16/18 at 09:00 Famotidine (Pepcid) 20 mg DAILY PO Last administered on 12/16/18 08:10; Admin Dose 20 MG; Start 12/16/18 at 09:00 Ferrous Sulfate (Ferrous Sulfate (Ec)) 325 mg BID PO Last administered on 12/16/18 08:10; Admin Dose 325 MG; Start 12/16/18 at 09:00 Folic Acid (Folic Acid) 1 mg DAILY PO Last administered on 12/16/18 08:10; Admin Dose 1 MG; Start 12/16/18 at 09:00 Insulin Glargine (Lantus) 10 units QHS SC ; Start 12/16/18 at 21:00 Levothyroxine Sodium (Synthroid) 125 mcg BEFORE BREAKFAST PO Last administered on 12/16/18at 06:23; Admin Dose 125 MCG; Start 12/16/18 at 07:00 Metoprolol Tartrate (Lopressor) 25 mg BID PO Last administered on 12/16/18at 02:10; Admin Dose 25 MG; Start 12/16/18 at 01:35 Nifedipine (Procardia Xl) 60 mg DAILY PO Last administered on 12/16/18 08:11; Admin Dose 60 MG; Start 12/16/18 at 09:00 Nitroglycerin (Nitroglycerin (Sl Tab) 0.4 Mg) 0.4 tab [id number] PRN SL CHEST PAIN; Start 12/16/18 at 00:00 Polyethylene Glycol (Miralax) 17 gm PRN PRN PO Constipation; Start 12/16/18 at 00:00 Pregabalin (Lyrica) 25 mg TID PO Last administered on 12/16/18 08:09; Admin Dose 25 MG; Start 12/16/18 at 09:00 Terazosin HCl (Hytrin) 10 mg HS PO ; Start 12/16/18 at 21:00 Loratadine (Claritin) 10 mg DAILY PO Last administered on 12/16/18at 08:11; Admin Dose 10 MG; Start 12/16/18 at 09:00 Cholecalciferol (Vitamin D) 2,000 unit DAILY PO Last administered on 12/16/18 08:10; Admin Dose 2,000 UNIT; Start 12/16/18 at 09:00 Acetaminophen (Tylenol Tab) 650 mg Q6H PRN PO MILD PAIN(1-3)OR ELEVATED TEMP Last administered on 12/16/18 08:09; Admin Dose 650 MG; Start 12/16/18 at 00:00 Ondansetron HCl (Zofran Inj) 4 mg Q4H PRN IV NAUSEA AND/OR VOMITING; Start 12/16/18 at 00:00 Vancomycin HCl (Vanco Iv Per Pharmacy) VANCOMYCIN PER PHARMACY PER PROTOCOL XX ; Start 12/16/18 at 00:00 Diagnostic Test (Pha) (Accu-Chek) 1 ea 02 XX Last administered on 12/16/18at 02:19; Admin Dose 1 EA; Start 12/16/18 at 02:00 Insulin Aspart (Novolog Insulin Pen) NOVOLOG *MILD* ALGORITHM WITH MEALS BEDTIME SC Last administered on 12/16/18at 08:22; Admin Dose 2 UNIT; Start 12/16/18 at 07:55 Levalbuterol (Xopenex Neb) 1.25 mg Q6H RESP THERAPY HHN ; Start 12/16/18 at 08:00 Levalbuterol (Xopenex Neb) 1.25 mg Q2H RESP THERAPY PRN HHN Wheezing Last a dministered on 12/16/18at 04:02; Admin Dose 1.25 MG; Start 12/16/18 at 03:30 Miscellaneous Information (* Miscellaneous Pharmacy Order) Bimatoprost (Lunigan) 0.01%-... ONCE XX ; Start 12/16/18 at 03:30 Miscellaneous Information 1 ea NOTE XX ; Start 12/16/18 at 10:30 Glucose (Glutose) 15 gm Q15M PRN PO DECREASED GLUCOSE; Start 12/16/18 at 10:30 Glucose (Glutose) 22.5 gm Q15M PRN PO DECREASED GLUCOSE; Start 12/16/18 at 10:30 Dextrose (D50w Syringe) 25 ml Q15M PRN IV DECREASED GLUCOSE; Start 12/16/18 at 10:30 Dextrose (D50w Syringe) 50 ml Q15M PRN IV DECREASED GLUCOSE; Start 12/16/18 at 10:30 Glucagon (Glucagen) 1 mg Q15M PRN IM DECREASED GLUCOSE; Start 12/16/18 at 10:30 Glucose (Glutose) 15 gm Q15M PRN BUCCAL DECREASED GLUCOSE; Start 12/16/18 at 10:30 Methylprednisolone Sodium Succinate (Solu-Medrol) 40 mg Q12 IV ; Start 12/16/18 at 10:30 Levofloxacin/ Dextrose 100 ml @ 100 mls/hr Q48H IVPB ; Start 12/18/18 at 09:00 Clonidine (Catapres) 0.1 mg Q6H PRN PO SBP>170; Start 12/16/18 at 11:00 Vancomycin HCl 250 ml @ 125 mls/hr Q36H IVPB ; Start 12/17/18 at 16:00 LOVE HAWK Dec 16, 2018 11:10
[2018-12-16] MEDS: METHYLPREDNISOLONE 40 MG INJ IV SCH ×2 (11:19→21:37)
--- NOTE | 2018-12-16 13:30 | HP ---
DATE OF ADMISSION: 12/15/2018 REASON FOR ADMISSION: Weakness. HISTORY OF PRESENTING ILLNESS: This is an 88-year-old male with a past medical history of rheumatoid arthritis, degenerative disk disease, history of CABG in the past, peripheral vascular disease, pres ented to the emergency department after being brought by the daughter for weakness. According to the patient, he has also been having shortness of breath and cough for the past 2 days. According to th e patient, he never came in contact with anybody sick. The patient did not check his fevers at home. The patient denied any abdominal pain, nausea, vomiting or diarrhea. He came to the emergency depa rtment for further evaluation. On arrival to the ED, the patient was found to have fevers of 102, bl ood pressure was 162/72. White count was 11.1, hemoglobin 8.7, platelet count 195. BMP showed BUN o f 43 and creatinine of 2.10, increased from last creatinine of 1.3. Lactate was 1.6. Influenza A an d B were negative. The patient had initial chest x-ray that showed no consolidative pulmonary infilt rates. Lungs are hyperinflated suggesting COPD, status post CABG. The patient received Levaquin, NS 2 liters' bolus, Rocephin and azithromycin and after that, the patient went into respiratory distress , was put on high flow oxygen and was given Lasix, steroid and nebulizer. Repeat chest x-ray shows b ilateral infiltrates. PAST MEDICAL HISTORY: 1. History of CABG. 2. Rheumatoid arthritis. 3. History of AFib. 4. History of coronary artery disease. 5. Hypertension. 6. History of peripheral vascular disease. ALLERGIES: 1. ____. 2. SULFADIAZINE. SOCIAL HISTORY: Denies any history of smoking, alcohol or any drug use. MEDICATIONS AT HOME: 1. Cetirizine 10 mg. 2. Plavix 75. 3. Iron sulfate 325 b.i.d. 4. Atorvastatin 40 mg at bedtime. 5. Metoprolol 25 b.i.d. 6. Nifedipine 60. 7. Terazosin 10. 8. Aspirin 81. 9. Lyrica 25 t.i.d. 10. Bisacodyl. 11. Lumigan eyedrops. 12. Pepcid. 13. Lantus 10 units. 14. Levothyroxine 125. 15. Ergocalciferol. 16. Folic acid. 17. Allopurinol 100 b.i.d. SOCIAL HISTORY: The patient lives with his daughter at home. FAMILY HISTORY: Significant for cancer of the GI tract in the family. REVIEW OF SYSTEMS: The patient complains of cough, shortness of breath. Denied any abdominal pain, nausea, vomiting, diarrhea. Denied any headache, any blurry vision. Denied any urinary symptoms. D enied any hematemesis, any melena, any bright red per rectum. PHYSICAL EXAMINATION: VITAL SIGNS: Initial temperature was 102.5, currently 100.6, blood pressure is 167/74, saturating 95 % on 4 liters, respiratory rate 20. GENERAL: The patient is awake, alert, oriented, appears to be in mild distress, some tachypnea. HEENT: Normocephalic, atraumatic. LUNGS: Few crackles appreciated bilaterally, more on the right. HEART: Regular rate and rhythm. ABDOMEN: Soft, some distention present. Positive bowel sound. EXTREMITIES: Trace edema. The patient also has joint deformities of the hands and feet due to rheum atoid arthritis. LABORATORY DATA: White count 11.5, hemoglobin 8.7, platelet count 195. Sodium of 142, potassium 4.6 , chloride 108, bicarbonate 21, BUN of 43, creatinine of 2.10. Lactate of 1.6. AST 26, ALT 16, susana line phosphatase ____, albumin is 4.2. Troponin was less than 0.012. ABG showed pH of 7.39, pCO2 of 32, pO2 of 61, bicarbonate 19. Influenza A and B are negative. Urine culture 20,000 to 30,000 colo ny-forming units. ASSESSMENT AND PLAN: This is an 88-year-old male who presented with: 1. Shortness of breath, cough associated with fevers. On admission, the chest x-ray showed no infil trates; however few hours later after the patient received fluids, the patient's chest x-ray was much worse and was short of breath. This is likely complication of underlying pneumonia with fluid overl oad. 2. Fevers, likely secondary to pneumonia. 3. Acute on chronic renal failure likely secondary to sepsis, systemic inflammatory response syndrom e, rule out urinary retention. 4. Hypertension. 5. Hyperlipidemia. 6. Leukocytosis with systemic inflammatory response syndrome. 7. Chronic anemia with anemia of chronic disease. 8. Hyperlipidemia. 9. History of rheumatoid arthritis. 10. Diabetes type 2. 11. Hypothyroidism. 12. Peripheral vascular disease. PLAN: At this period of time, the patient is admitted to [facility]. We will start the patient on broad s pectrum IV antibiotics with vancomycin and cefepime. The patient will also be on IV Lasix. We will also get an echo. Sputum cultures and blood cultures will be sent. Pulmonary consultation has been obtained. We will also do bladder scan. The patient is also on nebs round the clock. Rest of the t reatment will depend on the patient's hospitalization course. Dictated By: IVAN SPEAR/SUZIE Conf#: [id number] DID#: [id number] CC: MARJORIE JAIN MD;*End*
[2018-12-16] MEDS ORDERED: METOPROLOL 5 MG INJ IV PRN (19:30)
--- NOTE | 2018-12-16 20:42 | RADRPT ---
Echocardiogram Report Patient Name: DELILAH JAINPatient ID: [id number] : 1930 (88y 6m)Study Date: 12/16/2018 10:39:49 AM Gender: Madeleinecession #: [id number] Tech: SC Location: Ref.Physician: IVAN AKHTAR Height(Cm): BSA: Weight(Kg): Quality: GoodAccount #: Procedures: Echocardiographic Report: Transthoracic echocardiogram with complete 2D, M-Mode, and doppler examination. Indications: Evaluate Left Ventricular function. Measurements: 2D/M Mode Doppler Measurement Value Normal Range Measurement Value Normal Range LVIDd 2D 3.6 [ 4.2 - 5.8 ] cm AV Peak Vahid 1.6 [ 100.0 - 170.0 ] cm/sec LVIDs 2D 2.1 [ 2.5 - 4.0 ] cm AV Peak PG 10.0 [ 2.0 - 9.0 ] mmHg LVPWd 2D 1.5 [ 0.6 - 1.0 ] cm AI Peak PG 58.0 mmHg IVSd 2D 1.4 [ 0.6 - 1.0 ] cm AI Peak Vahid 3.8 cm/sec AoR Diam 2D 3.0 [ 2.6 - 3.4 ] cm AI PHT 768.0 msec EDV 2D 55.5 [ 62.0 - 150.0 ] ml LVOT Peak Vahid 0.7 [ 70.0 - 110.0 ] cm/sec ESV 2D 14.1 [ 21.0 - 61.0 ] ml LVOT Peak PG 2.0 [ 2.0 - 6.0 ] mmHg EF 2D 74.6 [ 52.0 - 72.0 ] percent MV E Peak Vahid 1.3 [ 60.0 - 130.0 ] cm/sec LA Dimen 2D 3.9 [ 3.0 - 4.0 ] cm MV Decel Time 106 [ 104 - 258 ] msec Lat E` Vahid 0.2 [ 10.0 - 15.0 ] cm/sec Lateral E/E` 7.5 [ 1.0 - 2.0 ] ratio Med E` Vahid 0.1 cm/sec TR Peak Vahid 4.2 [ 100.0 - 280.0 ] cm/sec TR Peak PG 71.0 mmHg RVSP 74.0 [ 10.0 - 36.0 ] mmHg RA Pressure 3.0 mmHg Findings: Left Ventricle: Normal left ventricular systolic function. Normal left ventricular cavity size. Moderate concentric left ventricular hypertrophy. Ejection fraction is visually estimated at 60 %. Tissue Doppler/Mitral Doppler indices are consistent with restrictive physiology with markedly elevated left atrial pressure (Stage III-IV diastolic dysfunction). Right Ventricle: Mild right ventricular systolic dysfunction. Mild enlargement of right ventricle. Left Atrium: The left atrium is normal in size. Right Atrium: There is moderate enlargement of right atrium. Mitral Valve: Normal appearance and function of the mitral valve with trace physiologic regurgitation. Mitral valve leaflets appear mildly thickened. Mild mitral annular calcification. Mild to moderate mitral valve regurgitation. Aortic Valve: Normal appearance of the aortic valve. No significant aortic stenosis or insufficiency. No hemodynamically significant aortic stenosis by doppler. Aortic cusps appear mildly calcified. Mild aortic valve regurgitation. Tricuspid Valve: Normal appearance of the tricuspid valve. Estimated peak PA systolic pressure 74 mmHg. There is moderate tricuspid regurgitation. Pulmonic Valve: Normal pulmonic valve appearance. Pericardium: Normal pericardium with no significant pericardial effusion. Aorta: Normal aortic root. IVC: Normal size and normal respiratory collapse consistent with normal right atrial pressure. Conclusions: Normal left ventricular systolic function. Normal left ventricular cavity size. Moderate concentric left ventricular hypertrophy. Ejection fraction is visually estimated at 60 %. Tissue Doppler/Mitral Doppler indices are consistent with restrictive physiology with markedly elevated left atrial pressure (Stage III-IV diastolic dysfunction). Mild right ventricular systolic dysfunction. Mild enlargement of right ventricle. There is moderate enlargement of right atrium. Normal appearance and function of the mitral valve with trace physiologic regurgitation. Mitral valve leaflets appear mildly thickened. Mild mitral annular calcification. Mild to moderate mitral valve regurgitation. Normal appearance of the aortic valve. No significant aortic stenosis or insufficiency. No hemodynamically significant aortic stenosis by doppler. Aortic cusps appear mildly calcified. Mild aortic valve regurgitation. Normal appearance of the tricuspid valve. Estimated peak PA systolic pressure 74 mmHg. There is moderate tricuspid regurgitation. Electronically Signed By: Chas Robertson 2018-12-16 20:42:06 PDT
[2018-12-16] MEDS ORDERED: INSULIN GLARGINE [LANTus] (100 UNITS/ML) SYG SC SCH (21:00)
--- NOTE | 2018-12-16 21:13 | CONS ---
DATE OF ADMISSION: 12/15/2018 DATE OF CONSULTATION: 12/16/2018 REASON FOR CONSULTATION: Atrial fibrillation. REQUESTING PHYSICIAN: Dr. Yanna Buchanan HISTORY OF PRESENT ILLNESS: Mr. Mcintyre is an 88-year-old male with a history of coronary artery disea se status post coronary artery bypass graft surgery, rheumatoid arthritis, atrial fibrillation, hyper tension, peripheral arterial disease, hypothyroidism, dyslipidemia, who presented with generalized we akness and associated shortness of breath ongoing for approximately 2 days. The patient states that [facility] and after coming [facility] noticed that he just felt short of breath and ti red. He spoke to his daughter and was brought here to the emergency department. Upon arrival, temperature of 102.5, blood pressure 162/72, pulse 69, respiratory rate 24, satting 93% . The patient's labs were notable for a white count of 11.1, hemoglobin 8.7, platelet count of 195; sodium of 141, potassium of 4.9, creatinine of 2.1, BUN of 43; troponin negative; INR 1.32; UA border line; ABG with a pH of 7.397, a PaO2 of 61, a pCO2 of 32. The patient underwent a chest x-ray reveal ing status post mediastinotomy and CABG. Lungs are hyperinflated suggesting COPD. The patient's brock ctrocardiogram revealed atrial fibrillation at a rate of 78 with normal axis and nonspecific ST and T abnormalities diffusely. The patient had subsequently been admitted to the floor, and since admit t o the floor, he has had recurrent fevers at 100.6. The patient has been monitored on telemetry monit ori revealing rate-controlled atrial fibrillation. The patient continues to have shortness of madeline th. PAST MEDICAL HISTORY: As above in the HPI. MEDICATIONS CURRENTLY IN THE HOSPITAL: 1. Levofloxacin. 2. Vancomycin. 3. Lipitor 40 mg at bedtime. 4. Lantus. 5. Hytrin 10 mg at bedtime. 6. Clonidine p.r.n. 7. Lasix 40 mg IV x1. 8. Aspirin 81 mg daily. 9. Plavix 75 mg daily. 10. Procardia 60 mg daily. 11. Metoprolol 25 mg p.o. b.i.d. ALLERGIES: 1. PENICILLIN. 2. SULFA. 3. SULFADIAZINE. SOCIAL HISTORY: No current tobacco, EtOH or illicit drug use. FAMILY HISTORY: No history of sudden cardiac or early CAD. REVIEW OF SYSTEMS: As above in the HPI. CONSTITUTIONAL: History of fevers. PULMONARY: Shortness of breath. CARDIOVASCULAR: History of CABG. History of atrial fibrillation. GASTROINTESTINAL: No vomiting. GENITOURINARY: No hematuria. MUSCULOSKELETAL: Degenerative joint disease. PSYCHIATRIC: No documented psych history. NEUROLOGIC: No documented history of CVA. ENDOCRINE: Diabetes mellitus. PHYSICAL EXAMINATION: VITAL SIGNS: Temperature of 98.5, blood pressure 133/60, pulse 78, respiratory rate 18, satting 93%. GENERAL: The patient is alert, awake, complaining of shortness of breath. NECK: JVP approximately 8 to 9 cm of water. CHEST: Fair air movement throughout. HEART: Regular rate and rhythm. Normal S1, S2. A I/ systolic murmur. Nondisplaced PMI. ABDOMEN: Positive bowel sounds. Soft. EXTREMITIES: No significant pitting edema, 1+ pulses bilateral posterior tibial. LABORATORY DATA: Labs most recently from today: White count 13, hemoglobin 8.4, platelet count 183. Sodium 142, potassium 4.6, creatinine 1.75, BUN of 40. IMAGING STUDIES: As above in the HPI. No further imaging studies for my review at this time. ELECTROCARDIOGRAM: As above in the HPI. No further electrocardiograms for my review at this time. IMPRESSION: 1. Atrial fibrillation, rate controlled at this time but not on systemic anticoagulation, aspirin an d Plavix. 2. Hypertension, mildly elevated. 3. Dyslipidemia. 4. History of coronary artery disease, status post coronary artery bypass graft surgery. 5. Diastolic dysfunction by most recent echo 02/2018. 6. Diabetes mellitus. 7. Fevers, likely consistent with pneumonia. 8. Rheumatoid arthritis. 9. Degenerative joint disease. 10. Hypothyroidism. 11. Peripheral arterial disease. 12. Renal failure. RECOMMENDATIONS: 1. At this time, we would maintain the patient on telemetry monitoring to continue to follow rhythm and rate control closely. 2. We would continue the patient's antihypertensives at this time with metoprolol, Procardia and Hyt rin. 3. We would complete the patient's rule-out myocardial infarction to ensure that the patient's const ellation of symptoms are not the result of and not resulting in an acute coronary syndrome such as an acute myocardial infarction. 4. Follow the patient's blood sugars closely and adjust insulin therapy as necessary. 5. Continue the patient's current statin and adjust it according to the fasting lipid panel to be ch ecked. 6. Continue the patient's broad-spectrum antibiotics and follow up all culture data. 7. We will keep the patient's aspirin and Plavix for now but we will further assess the patient's po ssible indication for aspirin and Plavix, and if necessary, we would likely switch the patient to a t rue systemic anticoagulation for prevention of thromboembolic complications in the setting of atrial fibrillation. Thank you for allowing me to take part in the care of this patient. I will continue to follow him al josé very closely with you, with further recommendations to be made as the patient progresses through his inpatient hospital clinical course. Dictated By: MARJORIE HERMAN/SUZIE Conf#: [id number] DID#: [id number] CC: YANNA BUCHANAN;*End*
[2018-12-16] MEDS: ATORVASTATIN 40 MG TAB PO SCH (21:36)
[2018-12-16] MEDS: TERAZOSIN 5 MG CAP PO SCH (21:37)
[2018-12-17] VITALS (10 sets, daily range): BP systolic 96–139; BP diastolic 57–63; PULSE 65–95; RESP 18–19
[2018-12-17] MEDS: LEVALBUTEROL (NEB) 1.25 MG/0.5 ML AMP HHN SCH ×4 (01:38→21:14)
[2018-12-17] MEDS: ACCU-CHEK XX SCH (02:00)
[2018-12-17] MEDS: LEVOTHYROXINE 125 MCG TAB PO SCH (06:04)
[2018-12-17] MEDS: METHYLPREDNISOLONE 40 MG INJ IV SCH ×2 (08:20→20:13)
[2018-12-17] MEDS: INSULIN ASPART [NOVOLOG] 3 ML PEN SC SCH ×5 (08:20→20:27)
[2018-12-17] MEDS: NIFEdipine (XL) 60 MG TAB PO SCH (08:21)
[2018-12-17] MEDS: FAMOTIDINE 20 MG TAB PO SCH (08:21)
[2018-12-17] MEDS: ASPIRIN (EC) 81 MG TAB PO SCH (08:22)
[2018-12-17] MEDS: FERROUS SULFATE (EC) 325 MG TAB PO SCH ×2 (08:22→20:18)
[2018-12-17] MEDS: ALLOPURINOL 100 MG TAB PO SCH ×2 (08:22→20:18)
[2018-12-17] MEDS: CLOPIDOGREL 75 MG TAB PO SCH (08:22)
[2018-12-17] MEDS: FOLIC ACID 1 MG TAB PO SCH (08:23)
[2018-12-17] MEDS: METOPROLOL 25 MG TAB PO SCH ×2 (08:23→20:19)
[2018-12-17] MEDS: HYDROmorphONE 0.5 MG/0.5 ML SYG IV PRN ×2 (08:25→18:12)
[2018-12-17] MEDS: LORATADINE 10 MG TAB PO SCH (10:06)
[2018-12-17] MEDS: PREGABALIN 25 MG CAP PO SCH ×3 (10:06→20:18)
[2018-12-17] MEDS: CHOLECALCIFEROL 2,000 UNIT CAP PO SCH (10:06)
--- NOTE | 2018-12-17 11:19 | CONS ---
Assessment/Plan Assessment/Plan Assessment/Plan (Daily) Assessment recommendations; 1. Patient admitted with bilateral community-acquired pneumonia with right lung predominance, currently on appropriate antimicrobial regimen. 2. Advanced rheumatoid arthritis, difficult to rule out rheumatoid lung. 3. Prior CABG. 4. History of gout, hypothyroidism, diabetes. 5. Possibly some element of mild CHF as well. Continue current supportive care. Obtain follow-up chest x-ray 24 hours. Patient possibly may need to go back on Remicade later on. I did have a detailed discussion with the patient as well as his daughter who was present in the room at bedside. Consultation Date/Type/Reason Admit Date/Time Dec 15, 2018 at 18:41 Initial Consult Date 12/16/18 Type of Consult Pulmonary Pulmonary consult requested for evaluation of shortness of breath. Patient is a pleasant 88-year-old gentleman who came into the hospital yesterday with a few hours history of shortness of breath. Upon evaluation chest x-ray was done which is showing changes consistent with mild CHF. Patient also been complaining of cough wheezing as well as scant sputum production. Also had low- grade fever yesterday. Denies any abdominal pain, nausea vomiting, any high- grade fever body aches or myalgias. Past medical history; 1. Mild chronic renal insufficiency. 2. History of prior CABG. 3. 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 4. History of hypertension and diabetes. 5. History of gout and hypothyroidism. Medications; reviewed. Allergies; as outlined above. Social history; patient has been a cigar smoker. Family history; he is a , lives with his daughter. 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 Review of systems; denies any headache, sinus symptoms. Any seizures. Denies any dysphagia, sore throat, chest pain, angina, complains of cough and wheezing. Complains of scant sputum production. Denies any hemoptysis. Denies any abdominal pain, nausea vomiting. Any GI or urinary symptoms. Complains of very mild orthopnea. Denies any edema. Any weight change. General exam; elderly male, awake alert, currently no distress. Date/Time of Note DATE: 12/17/18 TIME: 11:16 24 HR Interval Summary Free Text/Dictation Patient's condition is fairly stable. Denies any shortness of breath at rest. Any coughing, wheezing, fever, chest pain or any sputum production. General exam; elderly male, awake and alert. Laying comfortably in bed. Currently in no distress. Exam/Review of Systems Exam Vitals Vital Signs Date Temp Pulse Resp B/P (MAP) Pulse Ox O2 O2 Flow FiO2 Time Delivery Rate 12/17/18 4.0 36 09:09 12/17/18 78 22 96 Nasal 09:08 Cannula 12/17/18 98.4 139/61 07:25 (87) Intake and Output 12/16/18 12/16/18 12/17/18 1414:59 22:59 06:59 IntakeIntake Total 250 ml 400 ml OutputOutput Total 600 ml BalanceBalance 250 ml -200 ml Exam H EENT exam; supple neck, no JVD. No lymphadenopathy. Midline trachea. No thyromegaly. No neck masses. Chest exam; diminished breath sounds bilateral. No added sounds. S1-S2 audible, no murmurs. There is a well-healed sternal scar. Abdomen exam; soft, nontender. No organomegaly. Bowel sounds audible. Extremity exam; no peripheral edema clubbing. Patient does have significant changes of rheumatoid arthritis. 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 Results Result Diagram: 12/17/18 0633 12/17/18 0633 Results 24hrs Laboratory Tests Test 12/16/18 12:40 12/16/18 17:13 12/16/18 21:33 12/17/18 00:54 Bedside Glucose 160 221 H 199 Creatine Kinase 698 H Creatine Kinase 1.3 Index Creatinine Kinase MB 9.36 H (Mass) Troponin I 0.020 Test 12/17/18 06:33 12/17/18 08:19 White Blood Count 13.6 H Red Blood Count 2.74 L Hemoglobin 8.1 L Hematocrit 25.0 L Mean Corpuscular 91.2 Volume Mean Corpuscular 29.6 Hemoglobin Mean Corpuscular 32.4 Hemoglobin Concent Red Cell 15.2 H Distribution Width Platelet Count 197 Mean Platelet Volume 10.4 Immature 0.300 Granulocytes % Neutrophils % 86.9 H Lymphocytes % 8.2 L Monocytes % 4.5 Eosinophils % 0.0 Basophils % 0.1 Nucleated Red Blood 0.0 Cells % Immature 0.040 H Granulocytes # Neutrophils # 11.9 H Lymphocytes # 1.1 Monocytes # 0.6 Eosinophils # 0.0 Basophils # 0.0 Nucleated Red Blood 0.0 Cells # Sodium Level 141 Potassium Level 4.6 Chloride Level 107 Carbon Dioxide Level 21 Anion Gap 13 Blood Urea Nitrogen 48 H Creatinine 2.10 H Est Glomerular Filtrat Rate mL/min Glucose Level 147 Calcium Level 8.4 Phosphorus Level 3.2 Magnesium Level 1.8 Creatine Kinase 653 H Creatine Kinase 1.3 Index Creatinine Kinase MB 8.63 H (Mass) Troponin I 0.025 Triglycerides Level 32 Cholesterol Level 77 L LDL Cholesterol, 29 Calculated HDL Cholesterol 42 Cholesterol/HDL 1.8 Ratio Bedside Glucose 172 Medications Medication Current Medications Allopurinol (Zyloprim) 100 mg BID PO Last administered on 12/17/18 08:22; Admin Dose 100 MG; Start 12/16/18 at 09:00 Aspirin (Halfprin) 81 mg DAILY PO Last administered on 12/17/18 08:22; Admin Dose 81 MG; Start 12/16/18 at 09:00 Atorvastatin Calcium (Lipitor) 40 mg QHS PO Last administered on 12/16/18 21:36; Admin Dose 40 MG; Start 12/16/18 at 21:00 Latanoprost (Xalatan) 1 drop HS BOTH EYES ; Start 12/16/18 at 02:00 Bisacodyl (Dulcolax) 10 mg BID PRN PO CONSTIPATION; Start 12/16/18 at 00:00 Clopidogrel Bisulfate (plaVIX) 75 mg DAILY PO Last administered on 12/17/18 08:22; Admin Dose 75 MG; Start 12/16/18 at 09:00 Famotidine (Pepcid) 20 mg DAILY PO Last administered on 12/17/18 08:21; Admin Dose 20 MG; Start 12/16/18 at 09:00 Ferrous Sulfate (Ferrous Sulfate (Ec)) 325 mg BID PO Last administered on 12/17/18 08:22; Admin Dose 325 MG; Start 12/16/18 at 09:00 Folic Acid (Folic Acid) 1 mg DAILY PO Last administered on 12/17/18 08:23; Admin Dose 1 MG; Start 12/16/18 at 09:00 Insulin Glargine (Lantus) 10 units QHS SC Last administered on 12/16/18 21:41; Admin Dose 10 UNITS; Start 12/16/18 at 21:00 Levothyroxine Sodium (Synthroid) 125 mcg BEFORE BREAKFAST PO Last administered on 12/17/18 06:04; Admin Dose 125 MCG; Start 12/16/18 at 07:00 Metoprolol Tartrate (Lopressor) 25 mg BID PO Last administered on 12/17/18 08:23; Admin Dose 25 MG; Start 12/16/18 at 01:35 Nifedipine (Procardia Xl) 60 mg DAILY PO Last administered on 12/17/18 08:21; Admin Dose 60 MG; Start 12/16/18 at 09:00 Nitroglycerin (Nitroglycerin (Sl Tab) 0.4 Mg) 0.4 tab [id number] PRN SL CHEST PAIN; Start 12/16/18 at 00:00 Polyethylene Glycol (Miralax) 17 gm PRN PRN PO Constipation; Start 12/16/18 at 00:00 Pregabalin (Lyrica) 25 mg TID PO Last administered on 12/17/18 10:06; Admin Dose 25 MG; Start 12/16/18 at 09:00 Terazosin HCl (Hytrin) 10 mg HS PO Last administered on 12/16/18at 21:37; Admin Dose 10 MG; Start 12/16/18 at 21:00 Loratadine (Claritin) 10 mg DAILY PO Last administered on 12/17/18 10:06; Admin Dose 10 MG; Start 12/16/18 at 09:00 Cholecalciferol (Vitamin D) 2,000 unit DAILY PO Last administered on 12/17/18 10:06; Admin Dose 2,000 UNIT; Start 12/16/18 at 09:00 Acetaminophen (Tylenol Tab) 650 mg Q6H PRN PO MILD PAIN(1-3)OR ELEVATED TEMP Last administered on 12/16/18at 22:42; Admin Dose 650 MG; Start 12/16/18 at 00:00 Ondansetron HCl (Zofran Inj) 4 mg Q4H PRN IV NAUSEA AND/OR VOMITING; Start 12/16/18 at 00:00 Vancomycin HCl (Vanco Iv Per Pharmacy) VANCOMYCIN PER PHARMACY PER PROTOCOL XX ; Start 12/16/18 at 00:00 Diagnostic Test (Pha) (Accu-Chek) 1 ea 02 XX Last administered on 12/16/18at 02:19; Admin Dose 1 EA; Start 12/16/18 at 02:00 Insulin Aspart (Novolog Insulin Pen) NOVOLOG *MILD* ALGORITHM WITH MEALS BEDTIME SC Last administered on 12/17/18at 08:20; Admin Dose 1 UNIT; Start 12/16/18 at 07:55 Levalbuterol (Xopenex Neb) 1.25 mg Q6H RESP THERAPY HHN Last administered on 12/17/18at 09:07; Admin Dose 1.25 MG; Start 12/16/18 at 08:00 Levalbuterol (Xopenex Neb) 1.25 mg Q2H RESP THERAPY PRN HHN Wheezing Last administered on 12/16/18at 04:02; Admin Dose 1.25 MG; Start 12/16/18 at 03:30 Miscellaneous Information (* Miscellaneous Pharmacy Order) Bimatoprost (Lunigan) 0.01%-... ONCE XX ; Start 12/16/18 at 03:30 Miscellaneous Information 1 ea NOTE XX ; Start 12/16/18 at 10:30 Glucose (Glutose) 15 gm Q15M PRN PO DECREASED GLUCOSE; Start 12/16/18 at 10:30 Glucose (Glutose) 22.5 gm Q15M PRN PO DECREASED GLUCOSE; Start 12/16/18 at 10:30 Dextrose (D50w Syringe) 25 ml Q15M PRN IV DECREASED GLUCOSE; Start 12/16/18 at 10:30 Dextrose (D50w Syringe) 50 ml Q15M PRN IV DECREASED GLUCOSE; Start 12/16/18 at 10:30 Glucagon (Glucagen) 1 mg Q15M PRN IM DECREASED GLUCOSE; Start 12/16/18 at 10:30 Glucose (Glutose) 15 gm Q15M PRN BUCCAL DECREASED GLUCOSE; Start 12/16/18 at 10:30 Methylprednisolone Sodium Succinate (Solu-Medrol) 40 mg Q12 IV Last admini stered on 12/17/18at 08:20; Admin Dose 40 MG; Start 12/16/18 at 10:30 Levofloxacin/ Dextrose 100 ml @ 100 mls/hr Q48H IVPB ; Start 12/18/18 at 09:00 Clonidine (Catapres) 0.1 mg Q6H PRN PO SBP>170; Start 12/16/18 at 11:00 Vancomycin HCl 250 ml @ 125 mls/hr Q36H IVPB ; Start 12/17/18 at 16:00 Metoprolol Tartrate (Lopressor) 5 mg Q4H PRN IV HR>110 Hold SBP<100; Start 12/16/18 at 19:30 Hydromorphone HCl (Dilaudid) 0.5 mg Q4H PRN IV SEVERE PAIN LEVEL 7-10 Last administered on 12/17/18at 08:25; Admin Dose 0.5 MG; Start 12/17/18 at 07:30 LOVE HAWK Dec 17, 2018 11:19
--- NOTE | 2018-12-17 12:46 | PN ---
Date/Time of Note Date/Time of Note DATE: 12/17/18 TIME: 12:40 Assessment/Plan VTE Prophylaxis Risk score (from Ns)>0 risk: 6 SCD applied (from Ns): Yes Pharmacological prophylaxis: NA/contraindicated Pharm contraindication: low risk/ambulating Lines/Catheters IV [facility] Type [facility] Urinary Cath still in place: No Assessment/Plan Assessment/Plan 88-year-old male who presented with: 1. Shortness of breath, cough associated with fevers. On admission, the chest x-ray showed no infiltrates; however few hours later after the patient received fluids, the patient's chest x-ray was much worse and was short of breath. This is likely complication of underlying pneumonia with fluid overload. This is much improved 2. Fevers, likely secondary to pneumonia.more On the right side, also has UTI final urine cultures pending 3. Acute on chronic renal failure likely secondary to sepsis, systemic inflammatory response syndrome improving 4. Hypertension. 5. Hyperlipidemia. 6. Leukocytosis with systemic inflammatory response syndrome. 7. Chronic anemia with anemia of chronic disease. 8. Hyperlipidemia. 9. History of rheumatoid arthritis. 10. Diabetes type 2. uncontrolled 11. Hypothyroidism. 12. Peripheral vascular disease.on plavix 13 UTI Plan -Continue with the vancomycin and Levaquin -Cultures negative so far -Leukocytosis same however patient is on steroids -Given Solu-Medrol 40 IV every 12 -Pain control with IV Dilaudid -Continue with Plavix -Given nifedipine/metoprolol -Continue with levothyroxine -GI DVT PROPHYLAXSIS -PT EvaL Result Diagram: 12/17/18 0633 12/17/18 0633 Results 24hrs Laboratory Tests Test 12/16/18 17:13 12/16/18 21:33 12/17/18 00:54 12/17/18 06:33 Bedside Glucose 221 H 199 Creatine Kinase 698 H 653 H Creatine Kinase 1.3 1.3 Index Creatinine Kinase MB 9.36 H 8.63 H (Mass) Troponin I 0.020 0.025 White Blood Count 13.6 H Red Blood Count 2.74 L Hemoglobin 8.1 L Hematocrit 25.0 L Mean Corpuscular 91.2 Volume Mean Corpuscular 29.6 Hemoglobin Mean Corpuscular 32.4 Hemoglobin Concent Red Cell 15.2 H Distribution Width Platelet Count 197 Mean Platelet Volume 10.4 Immature 0.300 Granulocytes % Neutrophils % 86.9 H Lymphocytes % 8.2 L Monocytes % 4.5 Eosinophils % 0.0 Basophils % 0.1 Nucleated Red Blood 0.0 Cells % Immature 0.040 H Granulocytes # Neutrophils # 11.9 H Lymphocytes # 1.1 Monocytes # 0.6 Eosinophils # 0.0 Basophils # 0.0 Nucleated Red Blood 0.0 Cells # Sodium Level 141 Potassium Level 4.6 Chloride Level 107 Carbon Dioxide Level 21 Anion Gap 13 Blood Urea Nitrogen 48 H Creatinine 2.10 H Est Glomerular Filtrat Rate mL/min Glucose Level 147 Calcium Level 8.4 Phosphorus Level 3.2 Magnesium Level 1.8 Triglycerides Level 32 Cholesterol Level 77 L LDL Cholesterol, 29 Calculated HDL Cholesterol 42 Cholesterol/HDL 1.8 Ratio Test 12/17/18 08:19 12/17/18 11:24 12/17/18 12:13 Bedside Glucose 172 223 H Creatine Kinase 542 H Creatine Kinase 1.4 Index Creatinine Kinase MB 7.74 H (Mass) Troponin I < 0.012 Subjective 24 Hr Interval Summary Free Text/Dictation Says that he feels better today Current 4 L of oxygen Exam/Review of Systems Exam Vitals Vital Signs Date Temp Pulse Resp B/P (MAP) Pulse Ox O2 O2 Flow FiO2 Time Delivery Rate 12/17/18 97.7 75 19 138/60 99 11:37 (86) 12/17/18 4.0 36 09:09 12/17/18 Nasal 09:08 Cannula Intake and Output 12/16/18 12/16/18 12/17/18 1515:00 23:00 07:00 IntakeIntake Total 250 ml 400 ml OutputOutput Total 600 ml BalanceBalance 250 ml -200 ml Exam GENERAL: The patient is awake, alert, oriented, appears to be in mild distress, some tachypnea. HEENT: Normocephalic, atraumatic. LUNGS: Few crackles appreciated bilaterally, more on the right. improving HEART: Regular rate and rhythm. ABDOMEN: Soft, some distention present. Positive bowel sound. EXTREMITIES: Trace edema. The patient also has joint deformities of the hands and feet due to rheumatoid arthritis. Results Results 24hrs Laboratory Tests Test 12/16/18 17:13 12/16/18 21:33 12/17/18 00:54 12/17/18 06:33 Bedside Glucose 221 H 199 Creatine Kinase 698 H 653 H Creatine Kinase 1.3 1.3 Index Creatinine Kinase MB 9.36 H 8.63 H (Mass) Troponin I 0.020 0.025 White Blood Count 13.6 H Red Blood Count 2.74 L Hemoglobin 8.1 L Hematocrit 25.0 L Mean Corpuscular 91.2 Volume Mean Corpuscular 29.6 Hemoglobin Mean Corpuscular 32.4 Hemoglobin Concent Red Cell 15.2 H Distribution Width Platelet Count 197 Mean Platelet Volume 10.4 Immature 0.300 Granulocytes % Neutrophils % 86.9 H Lymphocytes % 8.2 L Monocytes % 4.5 Eosinophils % 0.0 Basophils % 0.1 Nucleated Red Blood 0.0 Cells % Immature 0.040 H Granulocytes # Neutrophils # 11.9 H Lymphocytes # 1.1 Monocytes # 0.6 Eosinophils # 0.0 Basophils # 0.0 Nucleated Red Blood 0.0 Cells # Sodium Level 141 Potassium Level 4.6 Chloride Level 107 Carbon Dioxide Level 21 Anion Gap 13 Blood Urea Nitrogen 48 H Creatinine 2.10 H Est Glomerular Filtrat Rate mL/min Glucose Level 147 Calcium Level 8.4 Phosphorus Level 3.2 Magnesium Level 1.8 Triglycerides Level 32 Cholesterol Level 77 L LDL Cholesterol, 29 Calculated HDL Cholesterol 42 Cholesterol/HDL 1.8 Ratio Test 12/17/18 08:19 12/17/18 11:24 12/17/18 12:13 Bedside Glucose 172 223 H Creatine Kinase 542 H Creatine Kinase 1.4 Index Creatinine Kinase MB 7.74 H (Mass) Troponin I < 0.012 Medications Medication Current Medications Allopurinol (Zyloprim) 100 mg BID PO Last administered on 12/17/18at 08:22; Admin Dose 100 MG; Start 12/16/18 at 09:00 Aspirin (Halfprin) 81 mg DAILY PO Last administered on 12/17/18at 08:22; Admin Dose 81 MG; Start 12/16/18 at 09:00 Atorvastatin Calcium (Lipitor) 40 mg QHS PO Last administered on 12/16/18at 21:36; Admin Dose 40 MG; Start 12/16/18 at 21:00 Latanoprost (Xalatan) 1 drop HS BOTH EYES ; Start 12/16/18 at 02:00 Bisacodyl (Dulcolax) 10 mg BID PRN PO CONSTIPATION; Start 12/16/18 at 00:00 Clopidogrel Bisulfate (plaVIX) 75 mg DAILY PO Last administered on 12/17/18 08:22; Admin Dose 75 MG; Start 12/16/18 at 09:00 Famotidine (Pepcid) 20 mg DAILY PO Last administered on 12/17/18 08:21; Admin Dose 20 MG; Start 12/16/18 at 09:00 Ferrous Sulfate (Ferrous Sulfate (Ec)) 325 mg BID PO Last administered on 12/17/18 08:22; Admin Dose 325 MG; Start 12/16/18 at 09:00 Folic Acid (Folic Acid) 1 mg DAILY PO Last administered on 12/17/18 08:23; Admin Dose 1 MG; Start 12/16/18 at 09:00 Levothyroxine Sodium (Synthroid) 125 mcg BEFORE BREAKFAST PO Last administered on 12/17/18 06:04; Admin Dose 125 MCG; Start 12/16/18 at 07:00 Metoprolol Tartrate (Lopressor) 25 mg BID PO Last administered on 12/17/18 08:23; Admin Dose 25 MG; Start 12/16/18 at 01:35 Nifedipine (Procardia Xl) 60 mg DAILY PO Last administered on 12/17/18 08:21; Admin Dose 60 MG; Start 12/16/18 at 09:00 Nitroglycerin (Nitroglycerin (Sl Tab) 0.4 Mg) 0.4 tab [id number] PRN SL CHEST PAIN; Start 12/16/18 at 00:00 Polyethylene Glycol (Miralax) 17 gm PRN PRN PO Constipation; Start 12/16/18 at 00:00 Pregabalin (Lyrica) 25 mg TID PO Last administered on 12/17/18 12:14; Admin Dose 25 MG; Start 12/16/18 at 09:00 Terazosin HCl (Hytrin) 10 mg HS PO Last administered on 12/16/18 21:37; Admin Dose 10 MG; Start 12/16/18 at 21:00 Loratadine (Claritin) 10 mg DAILY PO Last administered on 12/17/18 10:06; Admin Dose 10 MG; Start 12/16/18 at 09:00 Cholecalciferol (Vitamin D) 2,000 unit DAILY PO Last administered on 12/17/18 10:06; Admin Dose 2,000 UNIT; Start 12/16/18 at 09:00 Acetaminophen (Tylenol Tab) 650 mg Q6H PRN PO MILD PAIN(1-3)OR ELEVATED TEMP Last administered on 12/16/18at 22:42; Admin Dose 650 MG; Start 12/16/18 at 00:00 Ondansetron HCl (Zofran Inj) 4 mg Q4H PRN IV NAUSEA AND/OR VOMITING; Start at 00:00 Vancomycin HCl (Vanco Iv Per Pharmacy) VANCOMYCIN PER PHARMACY PER PROTOCOL XX ; Start 12/16/18 at 00:00 Diagnostic Test (Pha) (Accu-Chek) 1 ea 02 XX Last administered on 12/16/18at 02: 19; Admin Dose 1 EA; Start 12/16/18 at 02:00 Insulin Aspart (Novolog Insulin Pen) NOVOLOG *MILD* ALGORITHM WITH MEALS BEDTIME SC Last administered on 12/17/18at 12:15; Admin Dose 3 UNIT; Start 12/16/18 at 07:55 Levalbuterol (Xopenex Neb) 1.25 mg Q6H RESP THERAPY HHN Last administered on 12/17/18at 09:07; Admin Dose 1.25 MG; Start 12/16/18 at 08:00 Levalbuterol (Xopenex Neb) 1.25 mg Q2H RESP THERAPY PRN HHN Wheezing Last administered on 12/16/18at 04:02; Admin Dose 1.25 MG; Start 12/16/18 at 03:30 Miscellaneous Information (* Miscellaneous Pharmacy Order) Bimatoprost (Lunigan) 0.01%-... ONCE XX ; Start 12/16/18 at 03:30 Miscellaneous Information 1 ea NOTE XX ; Start 12/16/18 at 10:30 Glucose (Glutose) 15 gm Q15M PRN PO DECREASED GLUCOSE; Start 12/16/18 at 10:30 Glucose (Glutose) 22.5 gm Q15M PRN PO DECREASED GLUCOSE; Start 12/16/18 at 10:30 Dextrose (D50w Syringe) 25 ml Q15M PRN IV DECREASED GLUCOSE; Start 12/16/18 at 10:30 Dextrose (D50w Syringe) 50 ml Q15M PRN IV DECREASED GLUCOSE; Start 12/16/18 at 10:30 Glucagon (Glucagen) 1 mg Q15M PRN IM DECREASED GLUCOSE; Start 12/16/18 at 10:30 Glucose (Glutose) 15 gm Q15M PRN BUCCAL DECREASED GLUCOSE; Start 12/16/18 at 10:30 Methylprednisolone Sodium Succinate (Solu-Medrol) 40 mg Q12 IV Last administered on 12/17/18at 08:20; Admin Dose 40 MG; Start 12/16/18 at 10:30 Levofloxacin/ Dextrose 100 ml @ 100 mls/hr Q48H IVPB ; Start 12/18/18 at 09:00 Clonidine (Catapres) 0.1 mg Q6H PRN PO SBP>170; Start 12/16/18 at 11:00 Vancomycin HCl 250 ml @ 125 mls/hr Q36H IVPB ; Start 12/17/18 at 16:00 Metoprolol Tartrate (Lopressor) 5 mg Q4H PRN IV HR>110 Hold SBP<100; Start 12/16/18 at 19:30 Hydromorphone HCl (Dilaudid) 0.5 mg Q4H PRN IV SEVERE PAIN LEVEL 7-10 Last administered on 12/17/18at 08:25; Admin Dose 0.5 MG; Start 12/17/18 at 07:30 Insulin Glargine (Lantus) 15 units QHS SC ; Start 12/17/18 at 21:00; Status IVAN GARCIA MD Dec 17, 2018 12:46
[2018-12-17] MEDS ORDERED: POLYETHYLENE GLYCOL 17 GM PACKET PO PRN (13:30)
--- NOTE | 2018-12-17 14:37 | CONS ---
Consult Date/Type/Reason Admit Date/Time Dec 15, 2018 at 18:41 Initial Consult Date 12/16/18 Date/Time of Note DATE: 12/17/18 TIME: 14:35 Subjective NO acute events - pt stable - rate controlled - con't anti-Bx - in good spirits now. ROS: No fever, no chills, no nausea, no vomiting, no diarrhea/constipation No recent weight changes No chest pain, no PND, no orthopnea - mild sob, a. 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 HEENT: Unicetric/atraumatic/EOMI ( follows commands) NECK: JVD elevated, no thyromegaly Lymph: no lymphadenopathy HEART: ir irregular with no S3, II/ systolic murmur at apex LUNGS: Coarse sounds ABD: soft, NT, ND, +BS : Intact Neuro: non focal SKIN: chronic changes EXT: trace edema Results/Medications Result Diagram: 12/17/1833 12/17/1833 Results 24 hrs Laboratory Tests Test 12/16/18 17:13 12/16/18 21:33 12/17/18 00:54 12/17/18 06:33 Bedside Glucose 221 H 199 Creatine Kinase 698 H 653 H Creatine Kinase 1.3 1.3 Index Creatinine Kinase MB 9.36 H 8.63 H (Mass) Troponin I 0.020 0.025 White Blood Count 13.6 H Red Blood Count 2.74 L Hemoglobin 8.1 L Hematocrit 25.0 L Mean Corpuscular 91.2 Volume Mean Corpuscular 29.6 Hemoglobin Mean Corpuscular 32.4 Hemoglobin Concent Red Cell 15.2 H Distribution Width Platelet Count 197 Mean Platelet Volume 10.4 Immature 0.300 Granulocytes % Neutrophils % 86.9 H Lymphocytes % 8.2 L Monocytes % 4.5 Eosinophils % 0.0 Basophils % 0.1 Nucleated Red Blood 0.0 Cells % Immature 0.040 H Granulocytes # Neutrophils # 11.9 H Lymphocytes # 1.1 Monocytes # 0.6 Eosinophils # 0.0 Basophils # 0.0 Nucleated Red Blood 0.0 Cells # Sodium Level 141 Potassium Level 4.6 Chloride Level 107 Carbon Dioxide Level 21 Anion Gap 13 Blood Urea Nitrogen 48 H Creatinine 2.10 H Est Glomerular Filtrat Rate mL/min Glucose Level 147 Calcium Level 8.4 Phosphorus Level 3.2 Magnesium Level 1.8 Triglycerides Level 32 Cholesterol Level 77 L LDL Cholesterol, 29 Calculated HDL Cholesterol 42 Cholesterol/HDL 1.8 Ratio Test 12/17/18 08:19 12/17/18 11:24 12/17/18 12:13 Bedside Glucose 172 223 H Creatine Kinase 542 H Creatine Kinase 1.4 Index Creatinine Kinase MB 7.74 H (Mass) Troponin I < 0.012 Home Meds Reported Medications Polyethylene Glycol* (Miralax*) 17 Gm Powd.pack, 17 GM PO DAILY, #30 PACKET 12/15/18 Nifedipine* (Nifedipine ER*) 60 Mg Tablet.sa, 60 MG PO DAILY, TAB.SA 12/15/18 Metoprolol Tartrate* (Lopressor*) 25 Mg Tablet, 25 MG PO BID, #60 TAB 12/15/18 Bisacodyl* (Bisacodyl*) 5 Mg Tablet.dr, 10 MG PO BID PRN for CONSTIPATION, TAB 12/15/18 Pregabalin* (Lyrica*) 25 Mg Capsule, 25 MG PO TID, CAP 12/15/18 Bimatoprost* (Lumigan*) 0.01%-5 Ml Opht Drops, 1 DROP BOTH EYES HS, EA 03/02/18 Cetirizine Hcl* (Cetirizine Hcl*) 10 Mg Tablet, 10 MG PO DAILY, #30 TAB 03/02/18 Insulin Glargine* (Lantus*) 100 Unit/Ml Soln, 10 UNIT SC QHS, #1 VIAL 03/02/18 Ergocalciferol (Vitamin D2) (VITAMIN D2) 2,000 Unit Tablet, 2000 UNIT PO DAILY, TAB 03/02/18 Famotidine* (Famotidine*) 20 Mg Tablet, 20 MG PO DAILY, #30 TAB 03/02/18 Ferrous Sulfate* (Ferrous Sulfate*) 325 Mg Tabec, 325 MG PO BID, TAB 03/02/18 Aspirin (Low Dose Aspirin) 81 Mg Tablet.dr, 81 MG PO DAILY, #30 TAB 03/02/18 Nitroglycerin* (Nitrostat*) 0.4 Mg Tab.subl, 0.4 MG SL Q5MIN PRN for CHEST PAIN, BOTTLE 03/02/18 Terazosin Hcl* (Terazosin Hcl*) 10 Mg Capsule, 10 MG PO HS, CAP 03/02/18 Levothyroxine Sodium* (Levoxyl*) 125 Mcg Tablet, 125 MCG PO BEFORE BREAKFAST, #30 TAB 03/02/18 Allopurinol* (Allopurinol*) 100 Mg Tablet, 100 MG PO BID, TAB 03/02/18 Atorvastatin* (Atorvastatin*) 40 Mg Tablet, 40 MG PO QHS, #30 TAB 03/02/18 Clopidogrel Bisulfate (Clopidogrel) 75 Mg Tablet, 75 MG PO DAILY, #30 TAB 03/02/18 Folic Acid* (Folic Acid*) 1 Mg Tablet, 1 MG PO DAILY, TAB 03/02/18 Discontinued Reported Medications Pregabalin* (Lyrica*) 50 Mg Capsule, 50 MG PO BID, CAP 03/02/18 Discontinued Scripts Megestrol Acetate* (Megace*) 40 Mg Tab, 80 MG PO BID for 10 Days, #20 TAB Prov:CAMPOS CESAR MD 06/18/18 Bisacodyl* (Bisacodyl*) 5 Mg Tablet.dr, 10 MG PO BID PRN for CONSTIPATION for 28 Days Prov:CAMPOS CESAR MD 06/18/18 Docusate Sodium (Dok) 100 Mg Capsule, 100 MG PO TID for 28 Days, #30 CAP Prov:CAMPOS CESAR MD 06/18/18 [Polyethylene Glycol] 17 GM/PKT LIQ No Conflict Check, 17 GM PO DAILY for 28 Days, #30 Prov:CAMPOS CESAR MD 06/18/18 Metoprolol Tartrate* (Lopressor*) 25 Mg Tab, 25 MG PO BID for 30 Days, TAB hold if hr<60 and sbp<100 Prov:IVAN AKHTAR MD 03/06/18 Medications Current Medications Allopurinol (Zyloprim) 100 mg BID PO Last administered on 12/17/18 08:22; Admin Dose 100 MG; Start 12/16/18 at 09:00 Aspirin (Halfprin) 81 mg DAILY PO Last administered on 12/17/18 08:22; Admin Dose 81 MG; Start 12/16/18 at 09:00 Atorvastatin Calcium (Lipitor) 40 mg QHS PO Last administered on 12/16/18 21:36; Admin Dose 40 MG; Start 12/16/18 at 21:00 Latanoprost (Xalatan) 1 drop HS BOTH EYES ; Start 12/16/18 at 02:00 Bisacodyl (Dulcolax) 10 mg BID PRN PO CONSTIPATION; Start 12/16/18 at 00:00 Clopidogrel Bisulfate (plaVIX) 75 mg DAILY PO Last administered on 12/17/18 08:22; Admin Dose 75 MG; Start 12/16/18 at 09:00 Famotidine (Pepcid) 20 mg DAILY PO Last administered on 12/17/18 08:21; Admin Dose 20 MG; Start 12/16/18 at 09:00 Ferrous Sulfate (Ferrous Sulfate (Ec)) 325 mg BID PO Last administered on 12/17/18 08:22; Admin Dose 325 MG; Start 12/16/18 at 09:00 Folic Acid (Folic Acid) 1 mg DAILY PO Last administered on 12/17/18 08:23; Admin Dose 1 MG; Start 12/16/18 at 09:00 Levothyroxine Sodium (Synthroid) 125 mcg BEFORE BREAKFAST PO Last administered on 12/17/18 06:04; Admin Dose 125 MCG; Start 12/16/18 at 07:00 Metoprolol Tartrate (Lopressor) 25 mg BID PO Last administered on 12/17/18 08:23; Admin Dose 25 MG; Start 12/16/18 at 01:35 Nifedipine (Procardia Xl) 60 mg DAILY PO Last administered on 12/17/18 08:21; Admin Dose 60 MG; Start 12/16/18 at 09:00 Nitroglycerin (Nitroglycerin (Sl Tab) 0.4 Mg) 0.4 tab [id number] PRN SL CHEST PAIN; Start 12/16/18 at 00:00 Pregabalin (Lyrica) 25 mg TID PO Last administered on 12/17/18 12:14; Admin Dose 25 MG; Start 12/16/18 at 09:00 Terazosin HCl (Hytrin) 10 mg HS PO Last administered on 12/16/18 21:37; Admin Dose 10 MG; Start 12/16/18 at 21:00 Loratadine (Claritin) 10 mg DAILY PO Last administered on 12/17/18 10:06; Admin Dose 10 MG; Start 12/16/18 at 09:00 Cholecalciferol (Vitamin D) 2,000 unit DAILY PO Last administered on 12/17/18 10:06; Admin Dose 2,000 UNIT; Start 12/16/18 at 09:00 Acetaminophen (Tylenol Tab) 650 mg Q6H PRN PO MILD PAIN(1-3)OR ELEVATED TEMP Last administered on 12/16/18 22:42; Admin Dose 650 MG; Start 12/16/18 at 00:00 Ondansetron HCl (Zofran Inj) 4 mg Q4H PRN IV NAUSEA AND/OR VOMITING; Start 12/16/18 at 00:00 Vancomycin HCl (Vanco Iv Per Pharmacy) VANCOMYCIN PER PHARMACY PER PROTOCOL XX ; Start 12/16/18 at 00:00 Diagnostic Test (Pha) (Accu-Chek) 1 ea 02 XX Last administered on 12/16/18 02:19; Admin Dose 1 EA; Start 12/16/18 at 02:00 Insulin Aspart (Novolog Insulin Pen) NOVOLOG *MILD* ALGORITHM WITH MEALS BEDTIME SC Last administered on 12/17/18 12:15; Admin Dose 3 UNIT; Start 12/16/18 at 07:55 Levalbuterol (Xopenex Neb) 1.25 mg Q6H RESP THERAPY HHN Last administered on 12/17/18 09:07; Admin Dose 1.25 MG; Start 12/16/18 at 08:00 Levalbuterol (Xopenex Neb) 1.25 mg Q2H RESP THERAPY PRN HHN Wheezing Last administered on 12/16/18 04:02; Admin Dose 1.25 MG; Start 12/16/18 at 03:30 Miscellaneous Information (* Miscellaneous Pharmacy Order) Bimatoprost (Lunigan) 0.01%-... ONCE XX ; Start 12/16/18 at 03:30 Miscellaneous Information 1 ea NOTE XX ; Start 12/16/18 at 10:30 Glucose (Glutose) 15 gm Q15M PRN PO DECREASED GLUCOSE; Start 12/16/18 at 10:30 Glucose (Glutose) 22.5 gm Q15M PRN PO DECREASED GLUCOSE; Start 12/16/18 at 10:30 Dextrose (D50w Syringe) 25 ml Q15M PRN IV DECREASED GLUCOSE; Start 12/16/18 at 10:30 Dextrose (D50w Syringe) 50 ml Q15M PRN IV DECREASED GLUCOSE; Start 12/16/18 at 10:30 Glucagon (Glucagen) 1 mg Q15M PRN IM DECREASED GLUCOSE; Start 12/16/18 at 10:30 Glucose (Glutose) 15 gm Q15M PRN BUCCAL DECREASED GLUCOSE; Start 12/16/18 at 10:30 Methylprednisolone Sodium Succinate (Solu-Medrol) 40 mg Q12 IV Last administered on 12/17/18at 08:20; Admin Dose 40 MG; Start 12/16/18 at 10:30 Levofloxacin/ Dextrose 100 ml @ 100 mls/hr Q48H IVPB ; Start 12/18/18 at 09:00 Clonidine (Catapres) 0.1 mg Q6H PRN PO SBP>170; Start 12/16/18 at 11:00 Vancomycin HCl 250 ml @ 125 mls/hr Q36H IVPB ; Start 12/17/18 at 16:00 Metoprolol Tartrate (Lopressor) 5 mg Q4H PRN IV HR>110 Hold SBP<100; Start 12/16/18 at 19:30 Hydromorphone HCl (Dilaudid) 0.5 mg Q4H PRN IV SEVERE PAIN LEVEL 7-10 Last administered on 12/17/18at 08:25; Admin Dose 0.5 MG; Start 12/17/18 at 07:30 Insulin Glargine (Lantus) 15 units QHS SC ; Start 12/17/18 at 21:00 Diagnostic Test (Pha) (Accu-Chek) 1 ea 02 XX ; Start 12/18/18 at 02:00 Insulin Aspart (Novolog Insulin Pen) 3 unit WITH MEALS SC ; Start 12/17/18 at 17:55 Polyethylene Glycol (Miralax) 17 gm DAILY PRN PO CONSTIPATION; Start 12/17/18 at 13:30 Assessment/Plan Hospital Course (Demo Recall) 1. Atrial fibrillation, rate controlled at this time but not on systemic ant icoagulation, aspirin and Plavix - rate controlled, will monitor for now. 2. Hypertension, mildly elevated - better now, con't med rx. 3. Dyslipidemia. 4. History of coronary artery disease, status post coronary artery bypass graft surgery - r/o [place], doubt ischemia. 5. Diastolic dysfunction by most recent echo 02/2018 - euvolemic by exam now. 6. Diabetes mellitus. 7. Fevers, likely consistent with pneumonia - con't anti-Bx - feels better today. 8. Rheumatoid arthritis - noted. 9. Degenerative joint disease. 10. Hypothyroidism. 11. Peripheral arterial disease. 12. Renal failure- Cr stable - reasonable urine output. LOU PATINO MD Dec 17, 2018 14:37
[2018-12-17] MEDS: VANCOMYCIN 1 GM 250 ML IVPB SCH (16:34)
[2018-12-17] MEDS: TERAZOSIN 5 MG CAP PO SCH (20:19)
[2018-12-17] MEDS: ATORVASTATIN 40 MG TAB PO SCH (20:19)
[2018-12-17] MEDS: INSULIN GLARGINE [LANTus] (100 UNITS/ML) SYG SC SCH (20:56)
[2018-12-17] MEDS: LATANOPROST 0.005% 2.5 ML OPH BOTH EYES SCH (20:57)
[2018-12-18] VITALS (13 sets, daily range): BP systolic 129–150; BP diastolic 56–90; PULSE 69–109; RESP 18–20
[2018-12-18] MEDS: LEVALBUTEROL (NEB) 1.25 MG/0.5 ML AMP HHN SCH ×4 (01:17→20:00)
[2018-12-18] MEDS: ACCU-CHEK XX SCH ×2 (01:40→01:41)
[2018-12-18] MEDS ORDERED: VANCOMYCIN 1 GM 250 ML IVPB SCH (04:00)
[2018-12-18] MEDS: LEVOTHYROXINE 125 MCG TAB PO SCH (06:00)
[2018-12-18] MEDS: INSULIN ASPART [NOVOLOG] 3 ML PEN SC SCH ×6 (08:21→21:22)
[2018-12-18] MEDS: METHYLPREDNISOLONE 40 MG INJ IV SCH ×2 (08:22→21:13)
[2018-12-18] MEDS: CLOPIDOGREL 75 MG TAB PO SCH (08:22)
[2018-12-18] MEDS: CHOLECALCIFEROL 2,000 UNIT CAP PO SCH (08:22)
[2018-12-18] MEDS: FOLIC ACID 1 MG TAB PO SCH (08:22)
[2018-12-18] MEDS: FERROUS SULFATE (EC) 325 MG TAB PO SCH ×2 (08:22→21:10)
[2018-12-18] MEDS: ALLOPURINOL 100 MG TAB PO SCH ×2 (08:23→21:12)
[2018-12-18] MEDS: LORATADINE 10 MG TAB PO SCH (08:23)
[2018-12-18] MEDS: FAMOTIDINE 20 MG TAB PO SCH (08:23)
[2018-12-18] MEDS: ASPIRIN (EC) 81 MG TAB PO SCH (08:23)
[2018-12-18] MEDS: METOPROLOL 25 MG TAB PO SCH (08:24)
[2018-12-18] MEDS: LEVOFLOXACIN 500MG/D5W (PMX) 100 ML IVPB SCH (08:24)
[2018-12-18] MEDS: NIFEdipine (XL) 60 MG TAB PO SCH (08:24)
[2018-12-18] MEDS: PREGABALIN 25 MG CAP PO SCH ×3 (09:44→21:11)
--- NOTE | 2018-12-18 11:20 | CONS ---
Assessment/Plan Assessment/Plan Assessment/Plan (Daily) Chest x-ray was reviewed from today which is showing improvement in right-sided infiltrative changes. Assessment recommendations; 1. Patient admitted with shortness of breath due to pneumonia with radiological improvement. 2. History of advanced rheumatoid arthritis with possibility of rheumatoid lung as well. Patient was on Remicade and stopped using it about a year ago. 3. History of prior CABG. 4. History of hypothyroidism. 5. Chronic renal insufficiency. 6. Anemia and thrombocytopenia. 7. Diabetes. Continue current supportive care. Continue antibiotics for at least another 48 hours. Further steroid dose tapering in about 24 hours as well. Patient likely will need to be resumed back on Remicade once he follows up with his storage consultant on an outpatient basis. Consultation Date/Type/Reason Admit Date/Time Dec 15, 2018 at 18:41 Initial Consult Date 12/16/18 Type of Consult Pulmonary Pulmonary consult requested for evaluation of shortness of breath. Patient is a pleasant 88-year-old gentleman who came into the hospital yesterday with a few hours history of shortness of breath. Upon evaluation chest x-ray was done which is showing changes consistent with mild CHF. Patient also been complaining of cough wheezing as well as scant sputum production. Also had low- grade fever yesterday. Denies any abdominal pain, nausea vomiting, any high- grade fever body aches or myalgias. Past medical history; 1. Mild chronic renal insufficiency. 2. History of prior CABG. 3. 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 4. History of hypertension and diabetes. 5. History of gout and hypothyroidism. Medications; reviewed. Allergies; as outlined above. Social history; patient has been a cigar smoker. Family history; he is a , lives with his daughter. 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 Review of systems; denies any headache, sinus symptoms. Any seizures. Denies any dysphagia, sore throat, chest pain, angina, complains of cough and wheezing. Complains of scant sputum production. Denies any hemoptysis. Denies any abdominal pain, nausea vomiting. Any GI or urinary symptoms. Complains of very mild orthopnea. Denies any edema. Any weight change. General exam; elderly male, awake alert, currently no distress. Date/Time of Note DATE: 12/18/18 TIME: 11:17 24 HR Interval Summary Free Text/Dictation Patient's condition is improving gradually. Still complains of shortness of breath, chest congestion. General examination; elderly male, laying comfortably in bed. Awake and alert. Currently in no distress. Exam/Review of Systems Exam Vitals Vital Signs Date Temp Pulse Resp B/P (MAP) Pulse Ox O2 O2 Flow FiO2 Time Delivery Rate 12/18/18 Nasal 2.0 08:21 Cannula 12/18/18 109 08:01 12/18/18 18 97 07:35 12/18/18 98.4 134/61 07:15 (85) 12/17/18 36 09:09 Intake and Output 12/17/18 12/17/18 12/18/18 1515:00 23:00 07:00 IntakeIntake Total 1800 ml 550 ml OutputOutput Total 600 ml 400 ml BalanceBalance 1200 ml 150 ml Exam HEENT exam; supple neck, no JVD. No lymphadenopathy. Midline trachea. No thyromegaly. Pharynx is clear. Chest exam; diminished but clear breath sounds. S1-S2 audible, no murmurs. There is a well-healed sternal scar. Abdomen exam; soft, no organomegaly. Bowel sounds audible. Extremity exam; no peripheral edema. Patient does have significant changes of rheumatoid arthritis. 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 Results Result Diagram: 12/17/18 0633 12/17/18 0633 Results 24hrs Laboratory Tests Test 12/17/18 11:24 12/17/18 12:13 12/17/18 17:11 12/17/18 20:25 Creatine Kinase 542 H Creatine Kinase 1.4 Index Creatinine Kinase MB 7.74 H (Mass) Troponin I < 0.012 Bedside Glucose 223 H 183 168 Test 12/18/18 08:18 Bedside Glucose 198 Medications Medication Current Medications Allopurinol (Zyloprim) 100 mg BID PO Last administered on 12/18/18at 08:23; Admin Dose 100 MG; Start 12/16/18 at 09:00 Aspirin (Halfprin) 81 mg DAILY PO Last administered on 12/18/18at 08:23; Admin Dose 81 MG; Start 12/16/18 at 09:00 Atorvastatin Calcium (Lipitor) 40 mg QHS PO Last administered on 12/17/18at 20:19; Admin Dose 40 MG; Start 12/16/18 at 21:00 Latanoprost (Xalatan) 1 drop HS BOTH EYES ; Start 12/16/18 at 02:00 Bisacodyl (Dulcolax) 10 mg BID PRN PO CONSTIPATION Last administered on 17:12; Admin Dose 10 MG; Start 12/16/18 at 00:00 Clopidogrel Bisulfate (plaVIX) 75 mg DAILY PO Last administered on 12/18/18 08:22; Admin Dose 75 MG; Start 12/16/18 at 09:00 Famotidine (Pepcid) 20 mg DAILY PO Last administered on 12/18/18 08:23; Admin Dose 20 MG; Start 12/16/18 at 09:00 Ferrous Sulfate (Ferrous Sulfate (Ec)) 325 mg BID PO Last administered on 12/18/18 08:22; Admin Dose 325 MG; Start 12/16/18 at 09:00 Folic Acid (Folic Acid) 1 mg DAILY PO Last administered on 12/18/18 08:22; Admin Dose 1 MG; Start 12/16/18 at 09:00 Levothyroxine Sodium (Synthroid) 125 mcg BEFORE BREAKFAST PO Last administered on 12/18/18 06:00; Admin Dose 125 MCG; Start 12/16/18 at 07:00 Metoprolol Tartrate (Lopressor) 25 mg BID PO Last administered on 12/18/18 08:24; Admin Dose 25 MG; Start 12/16/18 at 01:35 Nifedipine (Procardia Xl) 60 mg DAILY PO Last administered on 12/18/18 08:24; Admin Dose 60 MG; Start 12/16/18 at 09:00 Nitroglycerin (Nitroglycerin (Sl Tab) 0.4 Mg) 0.4 tab [id number] PRN SL CHEST PAIN; Start 12/16/18 at 00:00 Pregabalin (Lyrica) 25 mg TID PO Last administered on 12/18/18 09:44; Admin Dose 25 MG; Start 12/16/18 at 09:00 Terazosin HCl (Hytrin) 10 mg HS PO Last administered on 12/17/18 20:19; Admin Dose 10 MG; Start 12/16/18 at 21:00 Loratadine (Claritin) 10 mg DAILY PO Last administered on 12/18/18 08:23; Admin Dose 10 MG; Start 12/16/18 at 09:00 Cholecalciferol (Vitamin D) 2,000 unit DAILY PO Last administered on 12/18/18 08:22; Admin Dose 2,000 UNIT; Start 12/16/18 at 09:00 Acetaminophen (Tylenol Tab) 650 mg Q6H PRN PO MILD PAIN(1-3)OR ELEVATED TEMP Last administered on 12/16/18at 22:42; Admin Dose 650 MG; Start 12/16/18 at 00:00 Ondansetron HCl (Zofran Inj) 4 mg Q4H PRN IV NAUSEA AND/OR VOMITING; Start 12/16/18 at 00:00 Vancomycin HCl (Vanco Iv Per Pharmacy) VANCOMYCIN PER PHARMACY PER PROTOCOL XX ; Start 12/16/18 at 00:00 Diagnostic Test (Pha) (Accu-Chek) 1 ea 02 XX Last administered on 12/16/18at 02:19; Admin Dose 1 EA; Start 12/16/18 at 02:00 Insulin Aspart (Novolog Insulin Pen) NOVOLOG *MILD* ALGORITHM WITH MEALS BEDTIME SC Last administered on 12/18/18at 08:21; Admin Dose 2 UNIT; Start 12/16/18 at 07:55 Levalbuterol (Xopenex Neb) 1.25 mg Q6H RESP THERAPY HHN Last administered on 12/18/18at 07:33; Admin Dose 1.25 MG; Start 12/16/18 at 08:00 Levalbuterol (Xopenex Neb) 1.25 mg Q2H RESP THERAPY PRN HHN Wheezing Last administered on 12/16/18at 04:02; Admin Dose 1.25 MG; Start 12/16/18 at 03:30 Miscellaneous Information (* Miscellaneous Pharmacy Order) Bimatoprost (Lunigan) 0.01%-... ONCE XX ; Start 12/16/18 at 03:30 Miscellaneous Information 1 ea NOTE XX ; Start 12/16/18 at 10:30 Glucose (Glutose) 15 gm Q15M PRN PO DECREASED GLUCOSE; Start 12/16/18 at 10:30 Glucose (Glutose) 22.5 gm Q15M PRN PO DECREASED GLUCOSE; Start 12/16/18 at 10:30 Dextrose (D50w Syringe) 25 ml Q15M PRN IV DECREASED GLUCOSE; Start 12/16/18 at 10:30 Dextrose (D50w Syringe) 50 ml Q15M PRN IV DECREASED GLUCOSE; Start 12/16/18 at 10:30 Glucagon (Glucagen) 1 mg Q15M PRN IM DECREASED GLUCOSE; Start 12/16/18 at 10:30 Glucose (Glutose) 15 gm Q15M PRN BUCCAL DECREASED GLUCOSE; Start 12/16/18 at 10:30 Methylprednisolone Sodium Succinate (Solu-Medrol) 40 mg Q12 IV Last administered on 12/18/18at 08:22; Admin Dose 40 MG; Start 12/16/18 at 10:30 Levofloxacin/ Dextrose 100 ml @ 100 mls/hr Q48H IVPB Last administered on 12/18/18 08:24; Admin Dose 100 MLS/HR; Start 12/18/18 at 09:00 Clonidine (Catapres) 0.1 mg Q6H PRN PO SBP>170; Start 12/16/18 at 11:00 Vancomycin HCl 250 ml @ 125 mls/hr Q36H IVPB Last administered on 12/17/18at 16:34; Admin Dose 125 MLS/HR; Start 12/17/18 at 16:00 Metoprolol Tartrate (Lopressor) 5 mg Q4H PRN IV HR>110 Hold SBP<100; Start 12/16/18 at 19:30 Hydromorphone HCl (Dilaudid) 0.5 mg Q4H PRN IV SEVERE PAIN LEVEL 7-10 Last administered on 12/17/18at 18:12; Admin Dose 0.5 MG; Start 12/17/18 at 07:30 Insulin Glargine (Lantus) 15 units QHS SC Last administered on 12/17/18at 20:56; Admin Dose 15 UNITS; Start 12/17/18 at 21:00 Diagnostic Test (Pha) (Accu-Chek) 1 ea 02 XX ; Start 12/18/18 at 02:00 Insulin Aspart (Novolog Insulin Pen) 3 unit WITH MEALS SC Last administered on 12/18/18at 08:21; Admin Dose 3 UNIT; Start 12/17/18 at 17:55 Polyethylene Glycol (Miralax) 17 gm DAILY PRN PO CONSTIPATION Last administered on 12/17/18 20:23; Admin Dose 17 GM; Start 12/17/18 at 13:30 LOVE HAWK 26, 2020 11:20
--- NOTE | 2018-12-18 12:03 | PN ---
Date/Time of Note Date/Time of Note DATE: 12/18/18 TIME: 11:59 Assessment/Plan VTE Prophylaxis Risk score (from Ns)>0 risk: 5 SCD applied (from Ns): Yes Pharmacological prophylaxis: NA/contraindicated Pharm contraindication: low risk/ambulating Lines/Catheters [facility] Urinary Cath still in place: No Assessment/Plan Assessment/Plan Assessment/Plan 88-year-old male who presented with: 1. Shortness of breath, cough associated with fevers. On admission, the chest x-ray showed no infiltrates; however few hours later after the patient received fluids, the patient's chest x-ray was much worse and was short of breath. This is likely complication of underlying pneumonia with fluid overload. 2. Fevers, likely secondary to pneumonia.more On the right side, also has UTI final urine culture +mixed gram +positive organisms 3. Acute on chronic renal failure likely secondary to sepsis, systemic inflammatory response syndrome improving 4. Hypertension. 5. Hyperlipidemia. 6. Leukocytosis with systemic inflammatory response syndrome. 7. Chronic anemia with anemia of chronic disease. 8. Hyperlipidemia. 9. History of rheumatoid arthritis. 10. Diabetes type 2. uncontrolled 11. Hypothyroidism. 12. Peripheral vascular disease.on plavix 13 UTI Plan -Continue with the vancomycin and Levaquin -Cultures negative so far -Leukocytosis same however patient is on steroids -Given Solu-Medrol 40 IV every 12 -Pain control with IV Dilaudid -Continue with ASA/Plavix - cw lantus 15 and increase mealtime insulin -Given nifedipine/metoprolol -Continue with levothyroxine -GI DVT PROPHYLAXSIS -PT EvaL PT is still sob , cw current treatment Result Diagram: 12/17/18 0633 12/17/18 0633 Results 24hrs Laboratory Tests Test 12/17/18 12:13 12/17/18 17:11 12/17/18 20:25 12/18/18 08:18 Bedside Glucose 223 H 183 168 198 Test 12/18/18 11:49 Bedside Glucose 173 Subjective 24 Hr Interval Summary Free Text/Dictation Pt still sob, although wants to go home Exam/Review of Systems Exam Vitals Vital Signs Date Temp Pulse Resp B/P (MAP) Pulse Ox O2 O2 Flow FiO2 Time Delivery Rate 12/18/18 97.6 69 18 131/90 93 11:17 (104) 12/18/18 Nasal 2.0 08:21 Cannula 12/17/18 36 09:09 Intake and Output 12/17/18 12/17/18 12/18/18 1515:00 23:00 07:00 IntakeIntake Total 1800 ml 550 ml OutputOutput Total 600 ml 400 ml BalanceBalance 1200 ml 150 ml Exam xam GENERAL: The patient is awake, alert, oriented, appears to be in mild distress, some tachypnea. HEENT: Normocephalic, atraumatic. LUNGS: Few crackles appreciated bilaterally, more on the right. improving HEART: Regular rate and rhythm. ABDOMEN: Soft, some distention present. Positive bowel sound. EXTREMITIES: Trace edema. The patient also has joint deformities of the hands and feet due to rheumatoid arthritis. Results Results 24hrs Laboratory Tests Test 12/17/18 12:13 12/17/18 17:11 12/17/18 20:25 12/18/18 08:18 Bedside Glucose 223 H 183 168 198 Test 12/18/18 11:49 Bedside Glucose 173 Medications Medication Current Medications Allopurinol (Zyloprim) 100 mg BID PO Last administered on 12/18/18 08:23; Admin Dose 100 MG; Start 12/16/18 at 09:00 Aspirin (Halfprin) 81 mg DAILY PO Last administered on 12/18/18 08:23; Admin Dose 81 MG; Start 12/16/18 at 09:00 Atorvastatin Calcium (Lipitor) 40 mg QHS PO Last administered on 12/17/18 20:19; Admin Dose 40 MG; Start 12/16/18 at 21:00 Latanoprost (Xalatan) 1 drop HS BOTH EYES ; Start 12/16/18 at 02:00 Bisacodyl (Dulcolax) 10 mg BID PRN PO CONSTIPATION Last administered on 12/17/18 17:12; Admin Dose 10 MG; Start 12/16/18 at 00:00 Clopidogrel Bisulfate (plaVIX) 75 mg DAILY PO Last administered on 12/18/18 08:22; Admin Dose 75 MG; Start 12/16/18 at 09:00 Famotidine (Pepcid) 20 mg DAILY PO Last administered on 12/18/18 08:23; Admin Dose 20 MG; Start 12/16/18 at 09:00 Ferrous Sulfate (Ferrous Sulfate (Ec)) 325 mg BID PO Last administered on 12/18/18 08:22; Admin Dose 325 MG; Start 12/16/18 at 09:00 Folic Acid (Folic Acid) 1 mg DAILY PO Last administered on 12/18/18 08:22; Admin Dose 1 MG; Start 12/16/18 at 09:00 Levothyroxine Sodium (Synthroid) 125 mcg BEFORE BREAKFAST PO Last administered on 12/18/18 06:00; Admin Dose 125 MCG; Start 12/16/18 at 07:00 Metoprolol Tartrate (Lopressor) 25 mg BID PO Last administered on 12/18/18 08:24; Admin Dose 25 MG; Start 12/16/18 at 01:35 Nifedipine (Procardia Xl) 60 mg DAILY PO Last administered on 12/18/18 08:24; Admin Dose 60 MG; Start 12/16/18 at 09:00 Nitroglycerin (Nitroglycerin (Sl Tab) 0.4 Mg) 0.4 tab [id number] PRN SL CHEST PAIN; Start 12/16/18 at 00:00 Pregabalin (Lyrica) 25 mg TID PO Last administered on 12/18/18 09:44; Admin Dose 25 MG; Start 12/16/18 at 09:00 Terazosin HCl (Hytrin) 10 mg HS PO Last administered on 12/17/18 20:19; Admin Dose 10 MG; Start 12/16/18 at 21:00 Loratadine (Claritin) 10 mg DAILY PO Last administered on 12/18/18 08:23; Admin Dose 10 MG; Start 12/16/18 at 09:00 Cholecalciferol (Vitamin D) 2,000 unit DAILY PO Last administered on 12/18/18 08:22; Admin Dose 2,000 UNIT; Start 12/16/18 at 09:00 Acetaminophen (Tylenol Tab) 650 mg Q6H PRN PO MILD PAIN(1-3)OR ELEVATED TEMP Last administered on 12/16/18 22:42; Admin Dose 650 MG; Start 12/16/18 at 00:00 Ondansetron HCl (Zofran Inj) 4 mg Q4H PRN IV NAUSEA AND/OR VOMITING; Start 12/16/18 at 00:00 Vancomycin HCl (Vanco Iv Per Pharmacy) VANCOMYCIN PER PHARMACY PER PROTOCOL XX ; Start 12/16/18 at 00:00 Diagnostic Test (Pha) (Accu-Chek) 1 ea 02 XX Last administered on 12/16/18at 02:19; Admin Dose 1 EA; Start 12/16/18 at 02:00 Insulin Aspart (Novolog Insulin Pen) NOVOLOG *MILD* ALGORITHM WITH MEALS BEDTIME SC Last administered on 12/18/18at 08:21; Admin Dose 2 UNIT; Start 12/16/18 at 07:55 Levalbuterol (Xopenex Neb) 1.25 mg Q6H RESP THERAPY HHN Last administered on 12/18/18at 07:33; Admin Dose 1.25 MG; Start 12/16/18 at 08:00 Levalbuterol (Xopenex Neb) 1.25 mg Q2H RESP THERAPY PRN HHN Wheezing Last administered on 12/16/18at 04:02; Admin Dose 1.25 MG; Start 12/16/18 at 03:30 Miscellaneous Information (* Miscellaneous Pharmacy Order) Bimatoprost (Lunigan) 0.01%-... ONCE XX ; Start 12/16/18 at 03:30 Miscellaneous Information 1 ea NOTE XX ; Start 12/16/18 at 10:30 Glucose (Glutose) 15 gm Q15M PRN PO DECREASED GLUCOSE; Start 12/16/18 at 10:30 Glucose (Glutose) 22.5 gm Q15M PRN PO DECREASED GLUCOSE; Start 12/16/18 at 10:30 Dextrose (D50w Syringe) 25 ml Q15M PRN IV DECREASED GLUCOSE; Start 12/16/18 at 10:30 Dextrose (D50w Syringe) 50 ml Q15M PRN IV DECREASED GLUCOSE; Start 12/16/18 at 10:30 Glucagon (Glucagen) 1 mg Q15M PRN IM DECREASED GLUCOSE; Start 12/16/18 at 10:30 Glucose (Glutose) 15 gm Q15M PRN BUCCAL DECREASED GLUCOSE; Start 12/16/18 at 10:30 Methylprednisolone Sodium Succinate (Solu-Medrol) 40 mg Q12 IV Last administered on 12/18/18at 08:22; Admin Dose 40 MG; Start 12/16/18 at 10:30 Levofloxacin/ Dextrose 100 ml @ 100 mls/hr Q48H IVPB Last administered on 12/18/18 08:24; Admin Dose 100 MLS/HR; Start 12/18/18 at 09:00 Clonidine (Catapres) 0.1 mg Q6H PRN PO SBP>170; Start 12/16/18 at 11:00 Vancomycin HCl 250 ml @ 125 mls/hr Q36H IVPB Last administered on 12/17/18 16:34; Admin Dose 125 MLS/HR; Start 12/17/18 at 16:00 Metoprolol Tartrate (Lopressor) 5 mg Q4H PRN IV HR>110 Hold SBP<100; Start 12/16/18 at 19:30 Hydromorphone HCl (Dilaudid) 0.5 mg Q4H PRN IV SEVERE PAIN LEVEL 7-10 Last administered on 12/17/18 18:12; Admin Dose 0.5 MG; Start 12/17/18 at 07:30 Insulin Glargine (Lantus) 15 units QHS SC Last administered on 12/17/18 20:56; Admin Dose 15 UNITS; Start 12/17/18 at 21:00 Diagnostic Test (Pha) (Accu-Chek) 1 ea 02 XX ; Start 12/18/18 at 02:00 Insulin Aspart (Novolog Insulin Pen) 3 unit WITH MEALS SC Last administered on 12/18/18 08:21; Admin Dose 3 UNIT; Start 12/17/18 at 17:55 Polyethylene Glycol (Miralax) 17 gm DAILY PRN PO CONSTIPATION Last administered on 12/17/18 20:23; Admin Dose 17 GM; Start 12/17/18 at 13:30 IVAN AKHTAR MD Dec 18, 2018 12:02
--- NOTE | 2018-12-18 17:31 | CONS ---
Assessment/Plan Assessment/Plan Hospital Course (Demo Recall) IMPRESSION: 1. Atrial fibrillation, rate controlled at this time but not on systemic anticoagulation, on aspirin and Plavix. 2. Hypertension, mildly elevated. 3. Dyslipidemia. 4. History of coronary artery disease, status post coronary artery bypass graft surgery. 5. Diastolic dysfunction by most recent echo 02/2018. 6. Diabetes mellitus. 7. Fevers, likely consistent with pneumonia. 8. Rheumatoid arthritis. 9. Degenerative joint disease. 10. Hypothyroidism. 11. Peripheral arterial disease. 12. Renal failure. Recc: -Tele -Continue asa/plavix for now bt should be considered for true systemic anticoagulation -Continue BB with slight increase and CCB -Continue abx's and f/u cx data -Continue steroids/bronchodilators -Replete Mg give possible NSVT by tele Consultation Date/Type/Reason Admit Date/Time Dec 15, 2018 at 18:41 Initial Consult Date 12/16/18 Type of Consult Cardiology Reason for Consultation AF Requesting Provider: IVAN AKHTAR MD Date/Time of Note DATE: 12/18/18 TIME: 17:25 Exam/Review of Systems Vital Signs Vitals Vital Signs Date Temp Pulse Resp B/P (MAP) Pulse Ox O2 O2 Flow FiO2 Time Delivery Rate 12/18/18 76 16:01 12/18/18 97.8 18 136/63 94 15:01 (87) 12/18/18 Nasal 2.0 14:21 Cannula 12/17/18 36 09:09 Intake and Output 12/17/18 12/17/18 12/18/18 1515:00 23:00 07:00 IntakeIntake Total 1800 ml 550 ml OutputOutput Total 600 ml 400 ml BalanceBalance 1200 ml 150 ml Exam Exam Review of Systems: CONSTITUTIONAL: No fevers, chills. PULMONARY: No sob CARDIOVASCULAR: No chest pain/palpitations GASTROINTESTINAL: No nausea/vomiting. GENITOURINARY: No hematuria/dysuria. MUSCULOSKELETAL: No myagias/arthalgias. PSYCHIATRIC: The patient denies depression. NEUROLOGIC: No weakness Constitutional: alert, oriented Psych: no complaints Head: normocephalic ENMT: mucosa pink and moist Neck: supple, jvd (9 cm water) Respiratory: diminished breath sounds (at bases/B) Cardiovascular: regular rate and rhythm Gastrointestinal: soft, non-tender Musculoskeletal: muscle tone (normal) Extremities: edema (none) Neurological: other (No focal deficits) Labs Result Diagram: 12/17/18 0633 12/17/18 0633 Results 24hrs Laboratory Tests Test 12/17/18 20:25 12/18/18 08:18 12/18/18 11:49 Bedside Glucose 168 198 173 Medications Medications Current Medications Allopurinol (Zyloprim) 100 mg BID PO Last administered on 12/18/18 08:23; Admin Dose 100 MG; Start 12/16/18 at 09:00 Aspirin (Halfprin) 81 mg DAILY PO Last administered on 12/18/18 08:23; Admin Dose 81 MG; Start 12/16/18 at 09:00 Atorvastatin Calcium (Lipitor) 40 mg QHS PO Last administered on 12/17/18 20:19; Admin Dose 40 MG; Start 12/16/18 at 21:00 Latanoprost (Xalatan) 1 drop HS BOTH EYES ; Start 12/16/18 at 02:00 Bisacodyl (Dulcolax) 10 mg BID PRN PO CONSTIPATION Last administered on 12/17/18 17:12; Admin Dose 10 MG; Start 12/16/18 at 00:00 Clopidogrel Bisulfate (plaVIX) 75 mg DAILY PO Last administered on 12/18/18 08:22; Admin Dose 75 MG; Start 12/16/18 at 09:00 Famotidine (Pepcid) 20 mg DAILY PO Last administered on 12/18/18 08:23; Admin Dose 20 MG; Start 12/16/18 at 09:00 Ferrous Sulfate (Ferrous Sulfate (Ec)) 325 mg BID PO Last administered on 12/18/18 08:22; Admin Dose 325 MG; Start 12/16/18 at 09:00 Folic Acid (Folic Acid) 1 mg DAILY PO Last administered on 12/18/18 08:22; Admin Dose 1 MG; Start 12/16/18 at 09:00 Levothyroxine Sodium (Synthroid) 125 mcg BEFORE BREAKFAST PO Last administered on 12/18/18 06:00; Admin Dose 125 MCG; Start 12/16/18 at 07:00 Metoprolol Tartrate (Lopressor) 25 mg BID PO Last administered on 12/18/18 08:24; Admin Dose 25 MG; Start 12/16/18 at 01:35 Nifedipine (Procardia Xl) 60 mg DAILY PO Last administered on 12/18/18 08:24; Admin Dose 60 MG; Start 12/16/18 at 09:00 Nitroglycerin (Nitroglycerin (Sl Tab) 0.4 Mg) 0.4 tab [id number] PRN SL CHEST PAIN; Start 12/16/18 at 00:00 Pregabalin (Lyrica) 25 mg TID PO Last administered on 12/18/18 12:40; Admin Dose 25 MG; Start 12/16/18 at 09:00 Terazosin HCl (Hytrin) 10 mg HS PO Last administered on 12/17/18 20:19; Admin Dose 10 MG; Start 12/16/18 at 21:00 Loratadine (Claritin) 10 mg DAILY PO Last administered on 12/18/18 08:23; Admin Dose 10 MG; Start 12/16/18 at 09:00 Cholecalciferol (Vitamin D) 2,000 unit DAILY PO Last administered on 12/18/18 08:22; Admin Dose 2,000 UNIT; Start 12/16/18 at 09:00 Acetaminophen (Tylenol Tab) 650 mg Q6H PRN PO MILD PAIN(1-3)OR ELEVATED TEMP Last administered on 12/16/18 22:42; Admin Dose 650 MG; Start 12/16/18 at 00:00 Ondansetron HCl (Zofran Inj) 4 mg Q4H PRN IV NAUSEA AND/OR VOMITING; Start 12/16/18 at 00:00 Vancomycin HCl (Vanco Iv Per Pharmacy) VANCOMYCIN PER PHARMACY PER PROTOCOL XX ; Start 12/16/18 at 00:00 Diagnostic Test (Pha) (Accu-Chek) 1 ea 02 XX Last administered on 12/16/18 02:19; Admin Dose 1 EA; Start 12/16/18 at 02:00 Insulin Aspart (Novolog Insulin Pen) NOVOLOG *MILD* ALGORITHM WITH MEALS BEDTIME SC Last administered on 12/18/18 12:52; Admin Dose 1 UNIT; Start 12/16/18 at 07:55 Levalbuterol (Xopenex Neb) 1.25 mg Q6H RESP THERAPY HHN Last administered on 12/18/18 14:21; Admin Dose 1.25 MG; Start 12/16/18 at 08:00 Levalbuterol (Xopenex Neb) 1.25 mg Q2H RESP THERAPY PRN HHN Wheezing Last administered on 12/16/18at 04:02; Admin Dose 1.25 MG; Start 12/16/18 at 03:30 Miscellaneous Information (* Miscellaneous Pharmacy Order) Bimatoprost (Lunigan) 0.01%-... ONCE XX ; Start 12/16/18 at 03:30 Miscellaneous Information 1 ea NOTE XX ; Start 12/16/18 at 10:30 Glucose (Glutose) 15 gm Q15M PRN PO DECREASED GLUCOSE; Start 12/16/18 at 10:30 Glucose (Glutose) 22.5 gm Q15M PRN PO DECREASED GLUCOSE; Start 12/16/18 at 10:30 Dextrose (D50w Syringe) 25 ml Q15M PRN IV DECREASED GLUCOSE; Start 12/16/18 at 10:30 Dextrose (D50w Syringe) 50 ml Q15M PRN IV DECREASED GLUCOSE; Start 12/16/18 at 10:30 Glucagon (Glucagen) 1 mg Q15M PRN IM DECREASED GLUCOSE; Start 12/16/18 at 10:30 Glucose (Glutose) 15 gm Q15M PRN BUCCAL DECREASED GLUCOSE; Start 12/16/18 at 10:30 Methylprednisolone Sodium Succinate (Solu-Medrol) 40 mg Q12 IV Last adm inistered on 12/18/18at 08:22; Admin Dose 40 MG; Start 12/16/18 at 10:30 Levofloxacin/ Dextrose 100 ml @ 100 mls/hr Q48H IVPB Last administered on 12/18/18at 08:24; Admin Dose 100 MLS/HR; Start 12/18/18 at 09:00 Clonidine (Catapres) 0.1 mg Q6H PRN PO SBP>170; Start 12/16/18 at 11:00 Vancomycin HCl 250 ml @ 125 mls/hr Q36H IVPB Last administered on 12/17/18at 16:34; Admin Dose 125 MLS/HR; Start 12/17/18 at 16:00 Metoprolol Tartrate (Lopressor) 5 mg Q4H PRN IV HR>110 Hold SBP<100; Start 12/16/18 at 19:30 Hydromorphone HCl (Dilaudid) 0.5 mg Q4H PRN IV SEVERE PAIN LEVEL 7-10 Last administered on 12/17/18at 18:12; Admin Dose 0.5 MG; Start 12/17/18 at 07:30 Insulin Glargine (Lantus) 15 units QHS SC Last administered on 12/17/18at 20:56; Admin Dose 15 UNITS; Start 12/17/18 at 21:00 Diagnostic Test (Pha) (Accu-Chek) 1 ea 02 XX ; Start 12/18/18 at 02:00 Polyethylene Glycol (Miralax) 17 gm DAILY PRN PO CONSTIPATION Last administered on 12/17/18at 20:23; Admin Dose 17 GM; Start 12/17/18 at 13:30 Insulin Aspart (Novolog Insulin Pen) 5 unit WITH MEALS SC ; Start 12/18/18 at 17:55 MARJORIE JAIN Dec 18, 2018 17:31
[2018-12-18] MEDS ORDERED: MAGNESIUM SULFATE 2 GM/50 ML 50 ML IVPB ONE (18:00)
[2018-12-18] MEDS: LATANOPROST 0.005% 2.5 ML OPH BOTH EYES SCH (21:00)
[2018-12-18] MEDS: TERAZOSIN 5 MG CAP PO SCH (21:11)
[2018-12-18] MEDS: ATORVASTATIN 40 MG TAB PO SCH (21:12)
[2018-12-18] MEDS: METOPROLOL 50 MG TAB PO SCH (21:12)
[2018-12-18] MEDS: INSULIN GLARGINE [LANTus] (100 UNITS/ML) SYG SC SCH (21:22)
[2018-12-18] MEDS: HYDROmorphONE 0.5 MG/0.5 ML SYG IV PRN (22:50)
[2018-12-19] VITALS (11 sets, daily range): BP systolic 144–164; BP diastolic 64–72; PULSE 63–87; RESP 16–20
[2018-12-19] MEDS: ACCU-CHEK XX SCH (01:24)
[2018-12-19] MEDS: LEVALBUTEROL (NEB) 1.25 MG/0.5 ML AMP HHN SCH ×4 (02:34→19:23)
[2018-12-19] MEDS: VANCOMYCIN 1 GM 250 ML IVPB SCH (03:32)
[2018-12-19] MEDS: LEVOTHYROXINE 125 MCG TAB PO SCH (05:56)
[2018-12-19] MEDS: FAMOTIDINE 20 MG TAB PO SCH (08:59)
[2018-12-19] MEDS: ALLOPURINOL 100 MG TAB PO SCH ×2 (09:00→20:59)
[2018-12-19] MEDS: CHOLECALCIFEROL 2,000 UNIT CAP PO SCH (09:00)
[2018-12-19] MEDS: FOLIC ACID 1 MG TAB PO SCH (09:00)
[2018-12-19] MEDS: NIFEdipine (XL) 60 MG TAB PO SCH (09:00)
[2018-12-19] MEDS: METOPROLOL 50 MG TAB PO SCH ×2 (09:00→20:59)
[2018-12-19] MEDS: FERROUS SULFATE (EC) 325 MG TAB PO SCH ×2 (09:00→20:59)
[2018-12-19] MEDS: LORATADINE 10 MG TAB PO SCH (09:00)
[2018-12-19] MEDS: PREGABALIN 25 MG CAP PO SCH ×3 (09:01→21:06)
[2018-12-19] MEDS: METHYLPREDNISOLONE 40 MG INJ IV SCH ×2 (09:01→20:59)
[2018-12-19] MEDS: APIXABAN 5 MG TABLET PO SCH ×2 (09:01→20:58)
[2018-12-19] MEDS: INSULIN ASPART [NOVOLOG] 3 ML PEN SC SCH ×7 (09:18→21:00)
--- NOTE | 2018-12-19 10:14 | PN ---
Date/Time of Note Date/Time of Note DATE: 12/19/18 TIME: 10:14 Assessment/Plan VTE Prophylaxis Risk score (from Ns)>0 risk: 7 SCD applied (from Ns): Yes Lines/Catheters IV Catheter Type (from Nrs): Saline Lock Urinary Cath still in place: No Assessment/Plan Result Diagram: 12/19/18 0555 12/19/18 0555 Results 24hrs Laboratory Tests Test 12/18/18 11:49 12/18/18 17:33 12/18/18 20:58 12/19/18 01:14 Bedside Glucose 173 162 192 111 Test 12/19/18 05:55 12/19/18 05:56 12/19/18 08:26 White Blood Count 8.5 # Red Blood Count 2.62 L Hemoglobin 7.9 L Hematocrit 23.6 L Mean Corpuscular 90.1 Volume Mean Corpuscular 30.2 Hemoglobin Mean Corpuscular 33.5 Hemoglobin Concent Red Cell 15.0 H Distribution Width Platelet Count 216 Mean Platelet Volume 10.2 Immature 0.500 H Granulocytes % Neutrophils % 85.2 H Lymphocytes % 9.6 L Monocytes % 4.7 Eosinophils % 0.0 Basophils % 0.0 Nucleated Red Blood 0.4 H Cells % Immature 0.040 H Granulocytes # Neutrophils # 7.2 Lymphocytes # 0.8 Monocytes # 0.4 Eosinophils # 0.0 Basophils # 0.0 Nucleated Red Blood 0.0 Cells # Sodium Level 142 Potassium Level 4.6 Chloride Level 109 Carbon Dioxide Level 21 Anion Gap 12 Blood Urea Nitrogen 64 H Creatinine 1.87 H Est Glomerular Filtrat Rate mL/min Glucose Level 162 Calcium Level 7.9 L Phosphorus Level 3.5 Magnesium Level 2.7 H Bedside Glucose 169 Exam/Review of Systems Exam Vitals Vital Signs Date Temp Pulse Resp B/P (MAP) Pulse Ox O2 O2 Flow FiO2 Time Delivery Rate 12/19/18 69 09:02 12/19/18 Nasal 2.0 08:05 Cannula 12/19/18 20 98 08:00 12/19/18 98.0 148/67 07:15 (94) 12/17/18 36 09:09 Intake and Output 12/18/18 12/18/18 12/19/18 1515:00 23:00 07:00 IntakeIntake Total 800 ml 650 ml OutputOutput Total 600 ml 650 ml BalanceBalance 200 ml 0 ml Results Results 24hrs Laboratory Tests Test 12/18/18 11:49 12/18/18 17:33 12/18/18 20:58 12/19/18 01:14 Bedside Glucose 173 162 192 111 Test 12/19/18 05:55 12/19/18 05:56 12/19/18 08:26 White Blood Count 8.5 # Red Blood Count 2.62 L Hemoglobin 7.9 L Hematocrit 23.6 L Mean Corpuscular 90.1 Volume Mean Corpuscular 30.2 Hemoglobin Mean Corpuscular 33.5 Hemoglobin Concent Red Cell 15.0 H Distribution Width Platelet Count 216 Mean Platelet Volume 10.2 Immature 0.500 H Granulocytes % Neutrophils % 85.2 H Lymphocytes % 9.6 L Monocytes % 4.7 Eosinophils % 0.0 Basophils % 0.0 Nucleated Red Blood 0.4 H Cells % Immature 0.040 H Granulocytes # Neutrophils # 7.2 Lymphocytes # 0.8 Monocytes # 0.4 Eosinophils # 0.0 Basophils # 0.0 Nucleated Red Blood 0.0 Cells # Sodium Level 142 Potassium Level 4.6 Chloride Level 109 Carbon Dioxide Level 21 Anion Gap 12 Blood Urea Nitrogen 64 H Creatinine 1.87 H Est Glomerular Filtrat Rate mL/min Glucose Level 162 Calcium Level 7.9 L Phosphorus Level 3.5 Magnesium Level 2.7 H Bedside Glucose 169 Medications Medication Current Medications Allopurinol (Zyloprim) 100 mg BID PO Last administered on 12/19/18 09:00; Admin Dose 100 MG; Start 12/16/18 at 09:00 Atorvastatin Calcium (Lipitor) 40 mg QHS PO Last administered on 12/18/18at 21:12; Admin Dose 40 MG; Start 12/16/18 at 21:00 Latanoprost (Xalatan) 1 drop HS BOTH EYES ; Start 12/16/18 at 02:00 Bisacodyl (Dulcolax) 10 mg BID PRN PO CONSTIPATION Last administered on 12/17/18at 17:12; Admin Dose 10 MG; Start 12/16/18 at 00:00 Famotidine (Pepcid) 20 mg DAILY PO Last administered on 12/19/18at 08:59; Admin Dose 20 MG; Start 12/16/18 at 09:00 Ferrous Sulfate (Ferrous Sulfate (Ec)) 325 mg BID PO Last administered on 12/19/18 09:00; Admin Dose 325 MG; Start 12/16/18 at 09:00 Folic Acid (Folic Acid) 1 mg DAILY PO Last administered on 12/19/18 09:00; Admin Dose 1 MG; Start 12/16/18 at 09:00 Levothyroxine Sodium (Synthroid) 125 mcg BEFORE BREAKFAST PO Last administered on 12/19/18 05:56; Admin Dose 125 MCG; Start 12/16/18 at 07:00 Nifedipine (Procardia Xl) 60 mg DAILY PO Last administered on 12/19/18 09:00; Admin Dose 60 MG; Start 12/16/18 at 09:00 Nitroglycerin (Nitroglycerin (Sl Tab) 0.4 Mg) 0.4 tab [id number] PRN SL CHEST PAIN; Start 12/16/18 at 00:00 Pregabalin (Lyrica) 25 mg TID PO Last administered on 12/19/18 09:01; Admin Dose 25 MG; Start 12/16/18 at 09:00 Terazosin HCl (Hytrin) 10 mg HS PO Last administered on 12/18/18 21:11; Admin Dose 10 MG; Start 12/16/18 at 21:00 Loratadine (Claritin) 10 mg DAILY PO Last administered on 12/19/18 09:00; Admin Dose 10 MG; Start 12/16/18 at 09:00 Cholecalciferol (Vitamin D) 2,000 unit DAILY PO Last administered on 12/19/18 09:00; Admin Dose 2,000 UNIT; Start 12/16/18 at 09:00 Acetaminophen (Tylenol Tab) 650 mg Q6H PRN PO MILD PAIN(1-3)OR ELEVATED TEMP Last administered on 12/16/18 22:42; Admin Dose 650 MG; Start 12/16/18 at 00:00 Ondansetron HCl (Zofran Inj) 4 mg Q4H PRN IV NAUSEA AND/OR VOMITING; Start 12/16/18 at 00:00 Vancomycin HCl (Vanco Iv Per Pharmacy) VANCOMYCIN PER PHARMACY PER PROTOCOL XX ; Start 12/16/18 at 00:00 Insulin Aspart (Novolog Insulin Pen) NOVOLOG *MILD* ALGORITHM WITH MEALS B EDTIME SC Last administered on 12/19/18 09:18; Admin Dose 1 UNIT; Start 12/16/18 at 07:55 Levalbuterol (Xopenex Neb) 1.25 mg Q6H RESP THERAPY HHN Last administered on 12/19/18at 07:57; Admin Dose 1.25 MG; Start 12/16/18 at 08:00 Levalbuterol (Xopenex Neb) 1.25 mg Q2H RESP THERAPY PRN HHN Wheezing Last administered on 12/16/18at 04:02; Admin Dose 1.25 MG; Start 12/16/18 at 03:30 Miscellaneous Information (* Miscellaneous Pharmacy Order) Bimatoprost (Lunigan) 0.01%-... ONCE XX ; Start 12/16/18 at 03:30 Miscellaneous Information 1 ea NOTE XX ; Start 12/16/18 at 10:30 Glucose (Glutose) 15 gm Q15M PRN PO DECREASED GLUCOSE; Start 12/16/18 at 10:30 Glucose (Glutose) 22.5 gm Q15M PRN PO DECREASED GLUCOSE; Start 12/16/18 at 10:30 Dextrose (D50w Syringe) 25 ml Q15M PRN IV DECREASED GLUCOSE; Start 12/16/18 at 10:30 Dextrose (D50w Syringe) 50 ml Q15M PRN IV DECREASED GLUCOSE; Start 12/16/18 at 10:30 Glucagon (Glucagen) 1 mg Q15M PRN IM DECREASED GLUCOSE; Start 12/16/18 at 10:30 Glucose (Glutose) 15 gm Q15M PRN BUCCAL DECREASED GLUCOSE; Start 12/16/18 at 10:30 Methylprednisolone Sodium Succinate (Solu-Medrol) 40 mg Q12 IV Last administered on 12/19/18at 09:01; Admin Dose 40 MG; Start 12/16/18 at 10:30 Levofloxacin/ Dextrose 100 ml @ 100 mls/hr Q48H IVPB Last administered on 12/18/18at 08:24; Admin Dose 100 MLS/HR; Start 12/18/18 at 09:00 Clonidine (Catapres) 0.1 mg Q6H PRN PO SBP>170; Start 12/16/18 at 11:00 Vancomycin HCl 250 ml @ 125 mls/hr Q36H IVPB Last administered on 12/19/18at 03:32; Admin Dose 125 MLS/HR; Start 12/17/18 at 16:00 Metoprolol Tartrate (Lopressor) 5 mg Q4H PRN IV HR>110 Hold SBP<100; Start 12/16/18 at 19:30 Hydromorphone HCl (Dilaudid) 0.5 mg Q4H PRN IV SEVERE PAIN LEVEL 7-10 Last administered on 12/18/18 22:50; Admin Dose 0.5 MG; Start 12/17/18 at 07:30 Insulin Glargine (Lantus) 15 units QHS SC Last administered on 12/18/18 21:22; Admin Dose 15 UNITS; Start 12/17/18 at 21:00 Diagnostic Test (Pha) (Accu-Chek) 1 ea 02 XX Last administered on 12/19/18 01:24; Admin Dose 1 EA; Start 12/18/18 at 02:00 Polyethylene Glycol (Miralax) 17 gm DAILY PRN PO CONSTIPATION Last administered on 12/17/18 20:23; Admin Dose 17 GM; Start 12/17/18 at 13:30 Insulin Aspart (Novolog Insulin Pen) 5 unit WITH MEALS SC Last administered on 12/19/18 09:18; Admin Dose 5 UNIT; Start 12/18/18 at 17:55 Metoprolol Tartrate (Lopressor) 50 mg BID PO Last administered on 12/19/18 09:00; Admin Dose 50 MG; Start 12/18/18 at 21:00 Apixaban (Eliquis) 2.5 mg BID PO Last administered on 12/19/18 09:01; Admin Dose 2.5 MG; Start 12/19/18 at 09:00 IVAN AKHTAR MD Dec 19, 2018 10:14
--- NOTE | 2018-12-19 10:14 | PN ---
Date/Time of Note Date/Time of Note DATE: 12/19/18 TIME: 10:14 Assessment/Plan VTE Prophylaxis Risk score (from Ns)>0 risk: 7 SCD applied (from Ns): Yes Pharmacological prophylaxis: NA/contraindicated Pharm contraindication: low risk/ambulating Lines/Catheters IV C[facility]from [facility] Saline Lock Urinary Cath still in place: No Assessment/Plan Hospital Course 88-year-old male who presented with: 1. Shortness of breath, cough associated with fevers. On admission, the chest x-ray showed no infiltrates; however few hours later after the patient received fluids, the patient's chest x-ray was much worse and was short of breath. This is likely complication of underlying pneumonia with fluid overload. 2. Fevers, likely secondary to pneumonia.more On the right side, also has UTI final urine culture +mixed gram +positive organisms 3. Acute on chronic renal failure likely secondary to sepsis, systemic inflammatory response syndrome improving, he has likely elevated BUN to creatinine ratio likely due to use of steroids 4. Hypertension. 5. Hyperlipidemia. 6. Leukocytosis with systemic inflammatory response syndrome. 7. Chronic anemia with anemia of chronic disease. 8. Hyperlipidemia. 9. History of rheumatoid arthritis. 10. Diabetes type 2. uncontrolled 11. Hypothyroidism. 12. Peripheral vascular disease.on plavix 13 UTI 14 Chronic AFIB Plan -Continue with the vancomycin and Levaquin -Cultures negative so far -Given Solu-Medrol 40 IV every 12 -Pain control with IV Dilaudid -Started on Eliquis for A. fib per cards - cw lantus 15 and CW mealtime insulin -Given nifedipine/metoprolol -Continue with levothyroxine -GI DVT PROPHYLAXSIS -cw PT - fu Pulm/cardiac recs Result Diagram: 12/19/18 0555 12/19/18 0555 Results 24hrs Laboratory Tests Test 12/18/18 11:49 12/18/18 17:33 12/18/18 20:58 12/19/18 01:14 Bedside Glucose 173 162 192 111 Test 12/19/18 05:55 12/19/18 05:56 12/19/18 08:26 White Blood Count 8.5 # Red Blood Count 2.62 L Hemoglobin 7.9 L Hematocrit 23.6 L Mean Corpuscular 90.1 Volume Mean Corpuscular 30.2 Hemoglobin Mean Corpuscular 33.5 Hemoglobin Concent Red Cell 15.0 H Distribution Width Platelet Count 216 Mean Platelet Volume 10.2 Immature 0.500 H Granulocytes % Neutrophils % 85.2 H Lymphocytes % 9.6 L Monocytes % 4.7 Eosinophils % 0.0 Basophils % 0.0 Nucleated Red Blood 0.4 H Cells % Immature 0.040 H Granulocytes # Neutrophils # 7.2 Lymphocytes # 0.8 Monocytes # 0.4 Eosinophils # 0.0 Basophils # 0.0 Nucleated Red Blood 0.0 Cells # Sodium Level 142 Potassium Level 4.6 Chloride Level 109 Carbon Dioxide Level 21 Anion Gap 12 Blood Urea Nitrogen 64 H Creatinine 1.87 H Est Glomerular Filtrat Rate mL/min Glucose Level 162 Calcium Level 7.9 L Phosphorus Level 3.5 Magnesium Level 2.7 H Bedside Glucose 169 Subjective 24 Hr Interval Summary Free Text/Dictation sob of breath is improving Exam/Review of Systems Exam Vitals Vital Signs Date Temp Pulse Resp B/P (MAP) Pulse Ox O2 O2 Flow FiO2 Time Delivery Rate 12/19/18 69 09:02 12/19/18 Nasal 2.0 08:05 Cannula 12/19/18 20 98 08:00 12/19/18 98.0 148/67 07:15 (94) 12/17/18 36 09:09 Intake and Output 12/18/18 12/18/18 12/19/18 1515:00 23:00 07:00 IntakeIntake Total 800 ml 650 ml OutputOutput Total 600 ml 650 ml BalanceBalance 200 ml 0 ml Exam GENERAL: The patient is awake, alert, oriented, appears to be in mild distress, some tachypnea. HEENT: Normocephalic, atraumatic. LUNGS: Few crackles appreciated bilaterally, more on the right. improving HEART: Regular rate and rhythm. ABDOMEN: Soft, some distention present. Positive bowel sound. EXTREMITIES: Trace edema. The patient also has joint deformities of the hands and feet due to rheumatoid arthritis. Results Results 24hrs Laboratory Tests Test 12/18/18 11:49 12/18/18 17:33 12/18/18 20:58 12/19/18 01:14 Bedside Glucose 173 162 192 111 Test 12/19/18 05:55 12/19/18 05:56 12/19/18 08:26 White Blood Count 8.5 # Red Blood Count 2.62 L Hemoglobin 7.9 L Hematocrit 23.6 L Mean Corpuscular 90.1 Volume Mean Corpuscular 30.2 Hemoglobin Mean Corpuscular 33.5 Hemoglobin Concent Red Cell 15.0 H Distribution Width Platelet Count 216 Mean Platelet Volume 10.2 Immature 0.500 H Granulocytes % Neutrophils % 85.2 H Lymphocytes % 9.6 L Monocytes % 4.7 Eosinophils % 0.0 Basophils % 0.0 Nucleated Red Blood 0.4 H Cells % Immature 0.040 H Granulocytes # Neutrophils # 7.2 Lymphocytes # 0.8 Monocytes # 0.4 Eosinophils # 0.0 Basophils # 0.0 Nucleated Red Blood 0.0 Cells # Sodium Level 142 Potassium Level 4.6 Chloride Level 109 Carbon Dioxide Level 21 Anion Gap 12 Blood Urea Nitrogen 64 H Creatinine 1.87 H Est Glomerular Filtrat Rate mL/min Glucose Level 162 Calcium Level 7.9 L Phosphorus Level 3.5 Magnesium Level 2.7 H Bedside Glucose 169 Medications Medication Current Medications Allopurinol (Zyloprim) 100 mg BID PO Last administered on 12/19/18 09:00; Admin Dose 100 MG; Start 12/16/18 at 09:00 Atorvastatin Calcium (Lipitor) 40 mg QHS PO Last administered on 12/18/18 21:12; Admin Dose 40 MG; Start 12/16/18 at 21:00 Latanoprost (Xalatan) 1 drop HS BOTH EYES ; Start 12/16/18 at 02:00 Bisacodyl (Dulcolax) 10 mg BID PRN PO CONSTIPATION Last administered on 12/17/18 17:12; Admin Dose 10 MG; Start 12/16/18 at 00:00 Famotidine (Pepcid) 20 mg DAILY PO Last administered on 12/19/18 08:59; Admin Dose 20 MG; Start 12/16/18 at 09:00 Ferrous Sulfate (Ferrous Sulfate (Ec)) 325 mg BID PO Last administered on 12/19/18 09:00; Admin Dose 325 MG; Start 12/16/18 at 09:00 Folic Acid (Folic Acid) 1 mg DAILY PO Last administered on 12/19/18 09:00; Admin Dose 1 MG; Start 12/16/18 at 09:00 Levothyroxine Sodium (Synthroid) 125 mcg BEFORE BREAKFAST PO Last administered on 12/19/18 05:56; Admin Dose 125 MCG; Start 12/16/18 at 07:00 Nifedipine (Procardia Xl) 60 mg DAILY PO Last administered on 12/19/18 09:00; Admin Dose 60 MG; Start 12/16/18 at 09:00 Nitroglycerin (Nitroglycerin (Sl Tab) 0.4 Mg) 0.4 tab [id number] PRN SL CHEST PAIN; Start 12/16/18 at 00:00 Pregabalin (Lyrica) 25 mg TID PO Last administered on 12/19/18 09:01; Admin Dose 25 MG; Start 12/16/18 at 09:00 Terazosin HCl (Hytrin) 10 mg HS PO Last administered on 12/18/18 21:11; Admin Dose 10 MG; Start 12/16/18 at 21:00 Loratadine (Claritin) 10 mg DAILY PO Last administered on 12/19/18 09:00; Admin Dose 10 MG; Start 12/16/18 at 09:00 Cholecalciferol (Vitamin D) 2,000 unit DAILY PO Last administered on 12/19/18 09:00; Admin Dose 2,000 UNIT; Start 12/16/18 at 09:00 Acetaminophen (Tylenol Tab) 650 mg Q6H PRN PO MILD PAIN(1-3)OR ELEVATED TEMP Last administered on 12/16/18 22:42; Admin Dose 650 MG; Start 12/16/18 at 00:00 Ondansetron HCl (Zofran Inj) 4 mg Q4H PRN IV NAUSEA AND/OR VOMITING; Start 12/16/18 at 00:00 Vancomycin HCl (Vanco Iv Per Pharmacy) VANCOMYCIN PER PHARMACY PER PROTOCOL XX ; Start 12/16/18 at 00:00 Insulin Aspart (Novolog Insulin Pen) NOVOLOG *MILD* ALGORITHM WITH MEALS BEDTIME SC Last administered on 12/19/18 09:18; Admin Dose 1 UNIT; Start 12/16/18 at 07:55 Levalbuterol (Xopenex Neb) 1.25 mg Q6H RESP THERAPY HHN Last administered on 12/19/18 07:57; Admin Dose 1.25 MG; Start 12/16/18 at 08:00 Levalbuterol (Xopenex Neb) 1.25 mg Q2H RESP THERAPY PRN HHN Wheezing Last admin istered on 3/25/19at 04:02; Admin Dose 1.25 MG; Start 12/16/18 at 03:30 Miscellaneous Information (* Miscellaneous Pharmacy Order) Bimatoprost (Lunigan) 0.01%-... ONCE XX ; Start 12/16/18 at 03:30 Miscellaneous Information 1 ea NOTE XX ; Start 12/16/18 at 10:30 Glucose (Glutose) 15 gm Q15M PRN PO DECREASED GLUCOSE; Start 12/16/18 at 10:30 Glucose (Glutose) 22.5 gm Q15M PRN PO DECREASED GLUCOSE; Start 12/16/18 at 10:30 Dextrose (D50w Syringe) 25 ml Q15M PRN IV DECREASED GLUCOSE; Start 12/16/18 at 10:30 Dextrose (D50w Syringe) 50 ml Q15M PRN IV DECREASED GLUCOSE; Start 12/16/18 at 10:30 Glucagon (Glucagen) 1 mg Q15M PRN IM DECREASED GLUCOSE; Start 12/16/18 at 10:30 Glucose (Glutose) 15 gm Q15M PRN BUCCAL DECREASED GLUCOSE; Start 12/16/18 at 10:30 Methylprednisolone Sodium Succinate (Solu-Medrol) 40 mg Q12 IV Last administered on 12/19/18at 09:01; Admin Dose 40 MG; Start 12/16/18 at 10:30 Levofloxacin/ Dextrose 100 ml @ 100 mls/hr Q48H IVPB Last administered on 12/18/18at 08:24; Admin Dose 100 MLS/HR; Start 12/18/18 at 09:00 Clonidine (Catapres) 0.1 mg Q6H PRN PO SBP>170; Start 12/16/18 at 11:00 Vancomycin HCl 250 ml @ 125 mls/hr Q36H IVPB Last administered on 12/19/18at 03:32; Admin Dose 125 MLS/HR; Start 12/17/18 at 16:00 Metoprolol Tartrate (Lopressor) 5 mg Q4H PRN IV HR>110 Hold SBP<100; Start 12/16/18 at 19:30 Hydromorphone HCl (Dilaudid) 0.5 mg Q4H PRN IV SEVERE PAIN LEVEL 7-10 Last administered on 12/18/18at 22:50; Admin Dose 0.5 MG; Start 12/17/18 at 07:30 Insulin Glargine (Lantus) 15 units QHS SC Last administered on 12/18/18 21:22; Admin Dose 15 UNITS; Start 12/17/18 at 21:00 Diagnostic Test (Pha) (Accu-Chek) 1 ea 02 XX Last administered on 12/19/18at 0 1:24; Admin Dose 1 EA; Start 12/18/18 at 02:00 Polyethylene Glycol (Miralax) 17 gm DAILY PRN PO CONSTIPATION Last administered on 12/17/18at 20:23; Admin Dose 17 GM; Start 12/17/18 at 13:30 Insulin Aspart (Novolog Insulin Pen) 5 unit WITH MEALS SC Last administered on 12/19/18 09:18; Admin Dose 5 UNIT; Start 12/18/18 at 17:55 Metoprolol Tartrate (Lopressor) 50 mg BID PO Last administered on 12/19/18 09:00; Admin Dose 50 MG; Start 12/18/18 at 21:00 Apixaban (Eliquis) 2.5 mg BID PO Last administered on 12/19/18 09:01; Admin Dose 2.5 MG; Start 12/19/18 at 09:00 IVAN AKHTAR MD Dec 19, 2018 10:14
--- NOTE | 2018-12-19 11:36 | CONS ---
Assessment/Plan Assessment/Plan Assessment/Plan (Daily) Assessment and recommendations; 1. Patient admitted with shortness of breath due to pneumonia with interval clinical and radiological improvement. 2. History of prior CABG. 3. Anemia. 4. Chronic atrial fibrillation. 5. Chronic renal insufficiency. 6. Severe rheumatoid arthritis. 7. 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 8. BPH. 9. Hypothyroidism. 10. History of hypertension. Continue current supportive care. Obtain follow-up chest x-ray 24 hours. Further recommendations once chest x-ray is obtained. Consultation Date/Type/Reason Admit Date/Time Dec 15, 2018 at 18:41 Initial Consult Date 12/16/18 Type of Consult Pulmonary Pulmonary consult requested for evaluation of shortness of breath. Patient is a pleasant 88-year-old gentleman who came into the hospital yesterday with a few hours history of shortness of breath. Upon evaluation chest x-ray was done which is showing changes consistent with mild CHF. Patient also been complaining of cough wheezing as well as scant sputum production. Also had low- grade fever yesterday. Denies any abdominal pain, nausea vomiting, any high- grade fever body aches or myalgias. Past medical history; 1. Mild chronic renal insufficiency. 2. History of prior CABG. 3. 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 4. History of hypertension and diabetes. 5. History of gout and hypothyroidism. Medications; reviewed. Allergies; as outlined above. Social history; patient has been a cigar smoker. Family history; he is a , lives with his daughter. 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 Review of systems; denies any headache, sinus symptoms. Any seizures. Denies any dysphagia, sore throat, chest pain, angina, complains of cough and wheezing. Complains of scant sputum production. Denies any hemoptysis. Denies any abdominal pain, nausea vomiting. Any GI or urinary symptoms. Complains of very mild orthopnea. Denies any edema. Any weight change. General exam; elderly male, awake alert, currently no distress. Requesting Provider: IVAN AKHTAR MD Date/Time of Note DATE: 12/19/18 TIME: 11:34 24 HR Interval Summary Free Text/Dictation Patient's condition is stable. Improving. Denies any shortness of breath, chest pain, coughing, wheezing. General exam; elderly male, laying comfortably in bed. Awake and alert. Currently in no distress. Exam/Review of Systems Exam Vitals Vital Signs Date Temp Pulse Resp B/P (MAP) Pulse Ox O2 O2 Flow FiO2 Time Delivery Rate 12/19/18 98.3 69 16 151/65 96 Room Air 11:01 (93) 12/19/18 2.0 08:05 12/17/18 36 09:09 Intake and Output 12/18/18 12/18/18 12/19/18 1515:00 23:00 07:00 IntakeIntake Total 800 ml 650 ml OutputOutput Total 600 ml 650 ml BalanceBalance 200 ml 0 ml Exam HEENT exam; supple neck, no JVD. No lymphadenopathy. Midline trachea. No thyromegaly. No neck masses. Pharynx is clear. Chest exam; diminished breath sounds bilaterally. No added sounds. S1-S2 audible, no murmurs. Regular rhythm. There is a well-healed sternal scar. Abdomen exam; soft, nontender. No organomegaly. Bowel sounds audible. Extremity exam; no peripheral edema. [employer] exam; no focal deficit. Results Result Diagram: 12/19/18 0555 12/19/18 0555 Results 24hrs Laboratory Tests Test 12/18/18 11:49 12/18/18 17:33 12/18/18 20:58 12/19/18 01:14 Bedside Glucose 173 162 192 111 Test 12/19/18 05:55 12/19/18 05:56 12/19/18 08:26 White Blood Count 8.5 # Red Blood Count 2.62 L Hemoglobin 7.9 L Hematocrit 23.6 L Mean Corpuscular 90.1 Volume Mean Corpuscular 30.2 Hemoglobin Mean Corpuscular 33.5 Hemoglobin Concent Red Cell 15.0 H Distribution Width Platelet Count 216 Mean Platelet Volume 10.2 Immature 0.500 H Granulocytes % Neutrophils % 85.2 H Lymphocytes % 9.6 L Monocytes % 4.7 Eosinophils % 0.0 Basophils % 0.0 Nucleated Red Blood 0.4 H Cells % Immature 0.040 H Granulocytes # Neutrophils # 7.2 Lymphocytes # 0.8 Monocytes # 0.4 Eosinophils # 0.0 Basophils # 0.0 Nucleated Red Blood 0.0 Cells # Sodium Level 142 Potassium Level 4.6 Chloride Level 109 Carbon Dioxide Level 21 Anion Gap 12 Blood Urea Nitrogen 64 H Creatinine 1.87 H Est Glomerular Filtrat Rate mL/min Glucose Level 162 Calcium Level 7.9 L Phosphorus Level 3.5 Magnesium Level 2.7 H Bedside Glucose 169 Medications Medication Current Medications Allopurinol (Zyloprim) 100 mg BID PO Last administered on 12/19/18 09:00; Admin Dose 100 MG; Start 12/16/18 at 09:00 Atorvastatin Calcium (Lipitor) 40 mg QHS PO Last administered on 12/18/18 21:12; Admin Dose 40 MG; Start 12/16/18 at 21:00 Latanoprost (Xalatan) 1 drop HS BOTH EYES ; Start 12/16/18 at 02:00 Bisacodyl (Dulcolax) 10 mg BID PRN PO CONSTIPATION Last administered on 17:12; Admin Dose 10 MG; Start 12/16/18 at 00:00 Famotidine (Pepcid) 20 mg DAILY PO Last administered on 12/19/18 08:59; Admin Dose 20 MG; Start 12/16/18 at 09:00 Ferrous Sulfate (Ferrous Sulfate (Ec)) 325 mg BID PO Last administered on 12/19/18 09:00; Admin Dose 325 MG; Start 12/16/18 at 09:00 Folic Acid (Folic Acid) 1 mg DAILY PO Last administered on 12/19/18 09:00; Admin Dose 1 MG; Start 12/16/18 at 09:00 Levothyroxine Sodium (Synthroid) 125 mcg BEFORE BREAKFAST PO Last administered on 12/19/18 05:56; Admin Dose 125 MCG; Start 12/16/18 at 07:00 Nifedipine (Procardia Xl) 60 mg DAILY PO Last administered on 12/19/18 09:00; Admin Dose 60 MG; Start 12/16/18 at 09:00 Nitroglycerin (Nitroglycerin (Sl Tab) 0.4 Mg) 0.4 tab [id number] PRN SL CHEST PAIN; Start 12/16/18 at 00:00 Pregabalin (Lyrica) 25 mg TID PO Last administered on 12/19/18 09:01; Admin Dose 25 MG; Start 12/16/18 at 09:00 Terazosin HCl (Hytrin) 10 mg HS PO Last administered on 12/18/18 21:11; Admin Dose 10 MG; Start 12/16/18 at 21:00 Loratadine (Claritin) 10 mg DAILY PO Last administered on 12/19/18at 09:00; Admin Dose 10 MG; Start 12/16/18 at 09:00 Cholecalciferol (Vitamin D) 2,000 unit DAILY PO Last administered on 12/19/18 09:00; Admin Dose 2,000 UNIT; Start 12/16/18 at 09:00 Acetaminophen (Tylenol Tab) 650 mg Q6H PRN PO MILD PAIN(1-3)OR ELEVATED TEMP Last administered on 12/16/18at 22:42; Admin Dose 650 MG; Start 12/16/18 at 00:00 Ondansetron HCl (Zofran Inj) 4 mg Q4H PRN IV NAUSEA AND/OR VOMITING; Start 12/16/18 at 00:00 Vancomycin HCl (Vanco Iv Per Pharmacy) VANCOMYCIN PER PHARMACY PER PROTOCOL XX ; Start 12/16/18 at 00:00 Insulin Aspart (Novolog Insulin Pen) NOVOLOG *MILD* ALGORITHM WITH MEALS BEDTIME SC Last administered on 12/19/18at 09:18; Admin Dose 1 UNIT; Start 12/16/18 at 07:55 Levalbuterol (Xopenex Neb) 1.25 mg Q6H RESP THERAPY HHN Last administered on 12/19/18at 07:57; Admin Dose 1.25 MG; Start 12/16/18 at 08:00 Levalbuterol (Xopenex Neb) 1.25 mg Q2H RESP THERAPY PRN HHN Wheezing Last administered on 12/16/18at 04:02; Admin Dose 1.25 MG; Start 12/16/18 at 03:30 Miscellaneous Information (* Miscellaneous Pharmacy Order) Bimatoprost (Lunigan) 0.01%-... ONCE XX ; Start 12/16/18 at 03:30 Miscellaneous Information 1 ea NOTE XX ; Start 12/16/18 at 10:30 Glucose (Glutose) 15 gm Q15M PRN PO DECREASED GLUCOSE; Start 12/16/18 at 10:30 Glucose (Glutose) 22.5 gm Q15M PRN PO DECREASED GLUCOSE; Start 12/16/18 at 10:30 Dextrose (D50w Syringe) 25 ml Q15M PRN IV DECREASED GLUCOSE; Start 12/16/18 at 10:30 Dextrose (D50w Syringe) 50 ml Q15M PRN IV DECREASED GLUCOSE; Start 12/16/18 at 10:30 Glucagon (Glucagen) 1 mg Q15M PRN IM DECREASED GLUCOSE; Start 12/16/18 at 10:30 Glucose (Glutose) 15 gm Q15M PRN BUCCAL DECREASED GLUCOSE; Start 12/16/18 at 10:30 Methylprednisolone Sodium Succinate (Solu-Medrol) 40 mg Q12 IV Last administered on 12/19/18 09:01; Admin Dose 40 MG; Start 12/16/18 at 10:30 Levofloxacin/ Dextrose 100 ml @ 100 mls/hr Q48H IVPB Last administered on 12/18/18 08:24; Admin Dose 100 MLS/HR; Start 12/18/18 at 09:00 Clonidine (Catapres) 0.1 mg Q6H PRN PO SBP>170; Start 12/16/18 at 11:00 Vancomycin HCl 250 ml @ 125 mls/hr Q36H IVPB Last administered on 12/19/18 03:32; Admin Dose 125 MLS/HR; Start 12/17/18 at 16:00 Metoprolol Tartrate (Lopressor) 5 mg Q4H PRN IV HR>110 Hold SBP<100; Start 12/16/18 at 19:30 Hydromorphone HCl (Dilaudid) 0.5 mg Q4H PRN IV SEVERE PAIN LEVEL 7-10 Last administered on 12/18/18 22:50; Admin Dose 0.5 MG; Start 12/17/18 at 07:30 Insulin Glargine (Lantus) 15 units QHS SC Last administered on 12/18/18 21:22; Admin Dose 15 UNITS; Start 12/17/18 at 21:00 Diagnostic Test (Pha) (Accu-Chek) 1 ea 02 XX Last administered on 12/19/18 01:24; Admin Dose 1 EA; Start 12/18/18 at 02:00 Polyethylene Glycol (Miralax) 17 gm DAILY PRN PO CONSTIPATION Last administered on 12/17/18 20:23; Admin Dose 17 GM; Start 12/17/18 at 13:30 Insulin Aspart (Novolog Insulin Pen) 5 unit WITH MEALS SC Last administered on 12/19/18 09:18; Admin Dose 5 UNIT; Start 12/18/18 at 17:55 Metoprolol Tartrate (Lopressor) 50 mg BID PO Last administered on 12/19/18at 09:00; Admin Dose 50 MG; Start 12/18/18 at 21:00 Apixaban (Eliquis) 2.5 mg BID PO Last administered on 12/19/18at 09:01; Admin Dose 2.5 MG; Start 12/19/18 at 09:00 LOVE HAWK 28, 2019 11:36
--- NOTE | 2018-12-19 19:43 | CONS ---
Assessment/Plan Assessment/Plan Hospital Course (Demo Recall) IMPRESSION: 1. Atrial fibrillation, rate controlled at this time but not on systemic anticoagulation,now on eliquis 2. Hypertension, mildly elevated. 3. Dyslipidemia. 4. History of coronary artery disease, status post coronary artery bypass graft surgery. 5. Diastolic dysfunction by most recent echo 02/2018. 6. Diabetes mellitus. 7. Fevers, likely consistent with pneumonia. 8. Rheumatoid arthritis. 9. Degenerative joint disease. 10. Hypothyroidism. 11. Peripheral arterial disease. 12. Renal failure. Recc: -Tele -Contineu newly started eliquis for AF with elevated CHADSVASC score -Continue BB and will make slight increase to CCB to improve overall SBP -Continue abx's and f/u cx data -Continue steroids/bronchodilators -Follow rhythm clsoely on tele Consultation Date/Type/Reason Admit Date/Time Dec 15, 2018 at 18:41 Initial Consult Date 12/16/18 Type of Consult Cardiology Reason for Consultation AF Requesting Provider: IVAN AKHTAR MD Date/Time of Note DATE: 12/19/18 TIME: 19:41 Exam/Review of Systems Vital Signs Vitals Vital Signs Date Temp Pulse Resp B/P (MAP) Pulse Ox O2 O2 Flow FiO2 Time Delivery Rate 12/19/18 86 18 98 Nasal 3.0 19:23 Cannula 12/19/18 98.0 151/65 15:05 (93) 12/17/18 36 09:09 Intake and Output 12/18/18 12/18/18 12/19/18 1515:00 23:00 07:00 IntakeIntake Total 800 ml 650 ml OutputOutput Total 600 ml 650 ml BalanceBalance 200 ml 0 ml Exam Exam Review of Systems: CONSTITUTIONAL: No fevers, chills. PULMONARY: No sob CARDIOVASCULAR: No chest pain/palpitations GASTROINTESTINAL: No nausea/vomiting. GENITOURINARY: No hematuria/dysuria. MUSCULOSKELETAL: No myagias/arthalgias. PSYCHIATRIC: The patient denies depression. NEUROLOGIC: No weakness Constitutional: alert Psych: no complaints Head: normocephalic ENMT: mucosa pink and moist Neck: supple, jvd (9 cm water) Respiratory: diminished breath sounds Cardiovascular: regular rate and rhythm Gastrointestinal: soft, non-tender Musculoskeletal: muscle weakness (generalized) Extremities: edema (none) Neurological: other (No focal deficits) Labs Result Diagram: 12/19/18 0555 12/19/18 0555 Results 24hrs Laboratory Tests Test 12/18/18 20:58 12/19/18 01:14 12/19/18 05:55 12/19/18 05:56 Bedside Glucose 192 111 White Blood Count 8.5 # Red Blood Count 2.62 L Hemoglobin 7.9 L Hematocrit 23.6 L Mean Corpuscular 90.1 Volume Mean Corpuscular 30.2 Hemoglobin Mean Corpuscular 33.5 Hemoglobin Concen t Red Cell 15.0 H Distribution Width Platelet Count 216 Mean Platelet 10.2 Volume Immature 0.500 H Granulocytes % Neutrophils % 85.2 H Lymphocytes % 9.6 L Monocytes % 4.7 Eosinophils % 0.0 Basophils % 0.0 Nucleated Red 0.4 H Blood Cells % Immature 0.040 H Granulocytes # Neutrophils # 7.2 Lymphocytes # 0.8 Monocytes # 0.4 Eosinophils # 0.0 Basophils # 0.0 Nucleated Red 0.0 Blood Cells # Sodium Level 142 Potassium Level 4.6 Chloride Level 109 Carbon Dioxide 21 Level Anion Gap 12 Blood Urea 64 H Nitrogen Creatinine 1.87 H Est Glomerular Filtrat Rate mL/min Glucose Level 162 Calcium Level 7.9 L Phosphorus Level 3.5 Magnesium Level 2.7 H Test 12/19/18 08:26 12/19/18 11:00 12/19/18 12:08 12/19/18 17:56 Bedside Glucose 169 164 177 Blood Gas Blood arterial Specimen Source Arterial Blood 12/19/2018 11:03: Date Drawn 20 AM Arterial Blood pH 7.438 (Temp corrected) Arterial Blood 32.4 L pCO2 (Temp correct) Arterial Blood 48.6 *L pO2 (Temp corrected) Arterial Blood 21.4 L HCO3 Arterial Blood -2.3 Base Excess Arterial Blood 84.6 L Oxygen Saturation Manuel Test N/A Arterial Blood Right Brachial Gas Puncture Site Arterial 0.5 Blood Carboxyhemo globin Arterial Blood 0.4 Methemoglobin Blood Gas A-a O2 62.3 H Differential Oxyhemoglobin 83.8 L Percent Blood Gas 37.0 Temperature Blood Gas ROOM AIR Modality FiO2 21.0 Blood Gas HNAZARIAN RN Critical Value Read Back Blood Gas TM Notified Whom Blood Gas 12/19/2018 11:36: Notified Time 50 AM Medications Medications Current Medications Allopurinol (Zyloprim) 100 mg BID PO Last administered on 12/19/18 09:00; Admin Dose 100 MG; Start 12/16/18 at 09:00 Atorvastatin Calcium (Lipitor) 40 mg QHS PO Last administered on 12/18/18 21:12; Admin Dose 40 MG; Start 12/16/18 at 21:00 Latanoprost (Xalatan) 1 drop HS BOTH EYES ; Start 12/16/18 at 02:00 Bisacodyl (Dulcolax) 10 mg BID PRN PO CONSTIPATION Last administered on 12/17/18 17:12; Admin Dose 10 MG; Start 12/16/18 at 00:00 Famotidine (Pepcid) 20 mg DAILY PO Last administered on 12/19/18 08:59; Admin Dose 20 MG; Start 12/16/18 at 09:00 Ferrous Sulfate (Ferrous Sulfate (Ec)) 325 mg BID PO Last administered on 09:00; Admin Dose 325 MG; Start 12/16/18 at 09:00 Folic Acid (Folic Acid) 1 mg DAILY PO Last administered on 12/19/18 09:00; Admin Dose 1 MG; Start 12/16/18 at 09:00 Levothyroxine Sodium (Synthroid) 125 mcg BEFORE BREAKFAST PO Last administered on 12/19/18 05:56; Admin Dose 125 MCG; Start 12/16/18 at 07:00 Nifedipine (Procardia Xl) 60 mg DAILY PO Last administered on 12/19/18 09:00; Admin Dose 60 MG; Start 12/16/18 at 09:00 Nitroglycerin (Nitroglycerin (Sl Tab) 0.4 Mg) 0.4 tab [id number] PRN SL CHEST PAIN; Start 12/16/18 at 00:00 Pregabalin (Lyrica) 25 mg TID PO Last administered on 12/19/18 13:36; Admin Dose 25 MG; Start 12/16/18 at 09:00 Terazosin HCl (Hytrin) 10 mg HS PO Last administered on 12/18/18 21:11; Admin Dose 10 MG; Start 12/16/18 at 21:00 Loratadine (Claritin) 10 mg DAILY PO Last administered on 12/19/18 09:00; Admin Dose 10 MG; Start 12/16/18 at 09:00 Cholecalciferol (Vitamin D) 2,000 unit DAILY PO Last administered on 12/19/18at 09:00; Admin Dose 2,000 UNIT; Start 12/16/18 at 09:00 Acetaminophen (Tylenol Tab) 650 mg Q6H PRN PO MILD PAIN(1-3)OR ELEVATED TEMP Last administered on 12/16/18at 22:42; Admin Dose 650 MG; Start 12/16/18 at 00:00 Ondansetron HCl (Zofran Inj) 4 mg Q4H PRN IV NAUSEA AND/OR VOMITING; Start 12/16/18 at 00:00 Vancomycin HCl (Vanco Iv Per Pharmacy) VANCOMYCIN PER PHARMACY PER PROTOCOL XX ; Start 12/16/18 at 00:00 Insulin Aspart (Novolog Insulin Pen) NOVOLOG *MILD* ALGORITHM WITH MEALS BEDTIME SC Last administered on 12/19/18at 18:08; Admin Dose 2 UNIT; Start 12/16/18 at 07:55 Levalbuterol (Xopenex Neb) 1.25 mg Q6H RESP THERAPY HHN Last administered on 12/19/18at 19:23; Admin Dose 1.25 MG; Start 12/16/18 at 08:00 Levalbuterol (Xopenex Neb) 1.25 mg Q2H RESP THERAPY PRN HHN Wheezing Last administered on 12/16/18at 04:02; Admin Dose 1.25 MG; Start 12/16/18 at 03:30 Miscellaneous Information (* Miscellaneous Pharmacy Order) Bimatoprost (Lunigan) 0.01%-... ONCE XX ; Start 12/16/18 at 03:30 Miscellaneous Information 1 ea NOTE XX ; Start 12/16/18 at 10:30 Glucose (Glutose) 15 gm Q15M PRN PO DECREASED GLUCOSE; Start 12/16/18 at 10:30 Glucose (Glutose) 22.5 gm Q15M PRN PO DECREASED GLUCOSE; Start 12/16/18 at 10:30 Dextrose (D50w Syringe) 25 ml Q15M PRN IV DECREASED GLUCOSE; Start 12/16/18 at 10:30 Dextrose (D50w Syringe) 50 ml Q15M PRN IV DECREASED GLUCOSE; Start 12/16/18 at 10:30 Glucagon (Glucagen) 1 mg Q15M PRN IM DECREASED GLUCOSE; Start 12/16/18 at 10:30 Glucose (Glutose) 15 gm Q15M PRN BUCCAL DECREASED GLUCOSE; Start 12/16/18 at 10:30 Methylprednisolone Sodium Succinate (Solu-Medrol) 40 mg Q12 IV Last administered on 12/19/18 09:01; Admin Dose 40 MG; Start 12/16/18 at 10:30 Levofloxacin/ Dextrose 100 ml @ 100 mls/hr Q48H IVPB Last administered on 12/18/18 08:24; Admin Dose 100 MLS/HR; Start 12/18/18 at 09:00 Clonidine (Catapres) 0.1 mg Q6H PRN PO SBP>170; Start 12/16/18 at 11:00 Vancomycin HCl 250 ml @ 125 mls/hr Q36H IVPB Last administered on 12/19/18 03:32; Admin Dose 125 MLS/HR; Start 12/17/18 at 16:00 Metoprolol Tartrate (Lopressor) 5 mg Q4H PRN IV HR>110 Hold SBP<100; Start 12/16/18 at 19:30 Hydromorphone HCl (Dilaudid) 0.5 mg Q4H PRN IV SEVERE PAIN LEVEL 7-10 Last adm inistered on 12/18/18 22:50; Admin Dose 0.5 MG; Start 12/17/18 at 07:30 Insulin Glargine (Lantus) 15 units QHS SC Last administered on 12/18/18 21:22; Admin Dose 15 UNITS; Start 12/17/18 at 21:00 Diagnostic Test (Pha) (Accu-Chek) 1 ea 02 XX Last administered on 12/19/18 01:24; Admin Dose 1 EA; Start 12/18/18 at 02:00 Polyethylene Glycol (Miralax) 17 gm DAILY PRN PO CONSTIPATION Last administered on 12/17/18 20:23; Admin Dose 17 GM; Start 12/17/18 at 13:30 Insulin Aspart (Novolog Insulin Pen) 5 unit WITH MEALS SC Last administered on 12/19/18 18:08; Admin Dose 5 UNIT; Start 12/18/18 at 17:55 Metoprolol Tartrate (Lopressor) 50 mg BID PO Last administered on 12/19/18 09:00; Admin Dose 50 MG; Start 12/18/18 at 21:00 Apixaban (Eliquis) 2.5 mg BID PO Last administered on 12/19/18at 09:01; Admin Dose 2.5 MG; Start 12/19/18 at 09:00 Miscellaneous Information (*Rx Drug Level Order Reminder*) VANCO TROUGH @ 1,500 ON... ONCE ONCE XX ; Start 12/20/18 at 15:00; Stop 12/20/18 at 15:01 MARJORIE JAIN Dec 19, 2018 19:43
[2018-12-19] MEDS: ATORVASTATIN 40 MG TAB PO SCH (20:59)
[2018-12-19] MEDS: TERAZOSIN 5 MG CAP PO SCH (21:00)
[2018-12-19] MEDS: LATANOPROST 0.005% 2.5 ML OPH BOTH EYES SCH (21:00)
[2018-12-19] MEDS: INSULIN GLARGINE [LANTus] (100 UNITS/ML) SYG SC SCH (21:03)
[2018-12-19] MEDS: LEVALBUTEROL (NEB) 1.25 MG/0.5 ML AMP HHN PRN (23:18)
[2018-12-20] VITALS (11 sets, daily range): BP systolic 145–159; BP diastolic 65–79; PULSE 61–80; RESP 17–22
[2018-12-20] MEDS: ACCU-CHEK XX SCH (02:00)
[2018-12-20] MEDS: LEVALBUTEROL (NEB) 1.25 MG/0.5 ML AMP HHN SCH ×4 (02:09→19:57)
[2018-12-20] MEDS: LEVOTHYROXINE 125 MCG TAB PO SCH (06:58)
[2018-12-20] MEDS: INSULIN ASPART [NOVOLOG] 3 ML PEN SC SCH ×7 (07:55→21:00)
[2018-12-20] MEDS: METHYLPREDNISOLONE 40 MG INJ IV SCH ×2 (08:40→21:22)
[2018-12-20] MEDS: ALLOPURINOL 100 MG TAB PO SCH ×2 (08:41→21:24)
[2018-12-20] MEDS: PREGABALIN 25 MG CAP PO SCH ×3 (08:41→21:23)
[2018-12-20] MEDS: FERROUS SULFATE (EC) 325 MG TAB PO SCH ×2 (08:42→21:24)
[2018-12-20] MEDS: CHOLECALCIFEROL 2,000 UNIT CAP PO SCH (08:42)
[2018-12-20] MEDS: FOLIC ACID 1 MG TAB PO SCH (08:42)
[2018-12-20] MEDS: METOPROLOL 50 MG TAB PO SCH ×2 (08:42→21:23)
[2018-12-20] MEDS: NIFEdipine (XL) 60 MG TAB PO SCH (08:42)
[2018-12-20] MEDS: LORATADINE 10 MG TAB PO SCH (08:43)
[2018-12-20] MEDS: APIXABAN 5 MG TABLET PO SCH ×2 (08:43→21:25)
[2018-12-20] MEDS: FAMOTIDINE 20 MG TAB PO SCH (08:43)
[2018-12-20] MEDS: LEVOFLOXACIN 500MG/D5W (PMX) 100 ML IVPB SCH (08:43)
--- NOTE | 2018-12-20 10:38 | PN ---
Date/Time of Note Date/Time of Note DATE: 12/20/18 TIME: 10:37 Assessment/Plan VTE Prophylaxis Risk score (from Ns)>0 risk: 7 [place]CD [place] [facility] [place]CD contraindicated: other Pharmacological prophylaxis: apixaban Lines/Catheters IV Catheter Type (from [facility]): Saline Lock Urinary Cath still in place: No Assessment/Plan Hospital Course 1. Shortness of breath, cough associated with fevers. On admission, the chest x-ray showed no infiltrates; however few hours later after the patient received fluids, the patient's chest x-ray was much worse and was short of breath. This is likely complication of underlying pneumonia with fluid overload. 2. Fevers, likely secondary to pneumonia.more On the right side, also has UTI final urine culture +mixed gram +positive organisms 3. Acute on chronic renal failure likely secondary to sepsis, systemic inflamma tory response syndrome improving, he has likely elevated BUN to creatinine ratio likely due to use of steroids 4. Hypertension. 5. Hyperlipidemia. 6. Leukocytosis with systemic inflammatory response syndrome. 7. Chronic anemia 8. Hyperlipidemia. 9. History of rheumatoid arthritis. 10. Diabetes type 2, uncontrolled 11. Hypothyroidism. 12. Peripheral vascular disease, on Plavix 13 UTI 14 Chronic A. FIB Assessment/Plan -Continue with the vancomycin and Levaquin -Cultures negative so far -telemetry -creatinine 1.63, trending down -Given Solu-Medrol 40 IV every 12 -Pain control with IV Dilaudid -C/W Eliquis for A. fib per cards - cw lantus 15 and CW mealtime insulin -C/W nifedipine/metoprolol/START hYDRALAZINE -Continue with levothyroxine -GI prophylaxis start pROTONIX DVT PROPHYLAXIS eliquis BID -cw PT - fu Pulm/cardiac recs Result Diagram: 12/20/18 0613 12/20/18 0613 Results 24hrs Laboratory Tests Test 12/19/18 11:00 12/19/18 12:08 12/19/18 17:56 12/19/18 20:57 Blood Gas Blood arterial Specimen Source Arterial Blood 12/19/2018 11:03: Date Drawn 20 AM Arterial Blood pH 7.438 (Temp corrected) Arterial Blood 32.4 L pCO2 (Temp correct) Arterial Blood 48.6 *L pO2 (Temp corrected) Arterial Blood 21.4 L HCO3 Arterial Blood -2.3 Base Excess Arterial Blood 84.6 L Oxygen Saturation Manuel Test N/A Arterial Blood Right Brachial Gas Puncture Site Arterial 0.5 Blood Carboxyhemo globin Arterial Blood 0.4 Methemoglobin Blood Gas A-a O2 62.3 H Differential Oxyhemoglobin 83.8 L Percent Blood Gas 37.0 Temperature Blood Gas ROOM AIR Modality FiO2 21.0 Blood Gas HNAZARIAN RN Critical Value Read Back Blood Gas TM Notified Whom Blood Gas 12/19/2018 11:36: Notified Time 50 AM Bedside Glucose 164 177 136 Test 12/19/18 23:40 12/20/18 06:13 12/20/18 08:39 Blood Gas Blood arterial Specimen Source Arterial Blood 12/19/2018 11:30: Date Drawn 04 PM Arterial Blood pH 7.455 H (Temp corrected) Arterial Blood 29.5 L pCO2 (Temp correct) Arterial Blood 73.2 L pO2 (Temp corrected) Arterial Blood 20.3 L HCO3 Arterial Blood -2.9 Base Excess Arterial Blood 94.4 L Oxygen Saturation Manuel Test ACCEPTAB Arterial Blood Left Radial Gas Puncture Site Arterial 0.2 Blood Carboxyhemo globin Arterial Blood 0.2 Methemoglobin Blood Gas A-a O2 91.6 H Differential Oxyhemoglobin 94.0 Percent Blood Gas 37.0 Temperature Blood Gas NASAL CANNULA Modality FiO2 28.0 Blood Gas MA Notified Whom Blood Gas 12/19/2018 11:43: Notified Time 44 PM White Blood Count 7.6 Red Blood Count 2.47 L Hemoglobin 7.4 L Hematocrit 22.7 L Mean Corpuscular 91.9 Volume Mean Corpuscular 30.0 Hemoglobin Mean Corpuscular 32.6 Hemoglobin Concen t Red Cell 15.2 H Distribution Width Platelet Count 214 Mean Platelet 10.3 Volume Immature 0.500 H Granulocytes % Neutrophils % 84.0 H Lymphocytes % 10.5 L Monocytes % 5.0 Eosinophils % 0.0 Basophils % 0.0 Nucleated Red 0.0 Blood Cells % Immature 0.040 H Granulocytes # Neutrophils # 6.3 Lymphocytes # 0.8 Monocytes # 0.4 Eosinophils # 0.0 Basophils # 0.0 Nucleated Red 0.0 Blood Cells # Sodium Level 143 Potassium Level 4.3 Chloride Level 110 Carbon Dioxide 22 Level Anion Gap 11 Blood Urea 64 H Nitrogen Creatinine 1.63 H Est Glomerular Filtrat Rate mL/min Glucose Level 120 # Calcium Level 8.1 L Phosphorus Level 3.7 Bedside Glucose 126 Subjective 24 Hr Interval Summary Respiratory: shortness of breath; No no complaints, No pain, No pleuritic pain, No sputum, No wheezing, No other Genitourinary: flank pain; No no complaints, No bleeding, No dysuria, No discharge, No hematuria, No other Skin: bruising; No no complaints, No erythema, No laceration, No pruritis, No rash, No skin lesions, No other Exam/Review of Systems Exam Vitals Vital Signs Date Temp Pulse Resp B/P (MAP) Pulse Ox O2 O2 Flow FiO2 Time Delivery Rate 12/20/18 97 2.0 10:13 12/20/18 71 16 Nasal 10:11 Cannula 12/20/18 98.4 149/79 07:33 (102) 12/17/18 36 09:09 Intake and Output 12/19/18 12/19/18 12/20/18 1515:00 23:00 07:00 IntakeIntake Total 800 ml 400 ml OutputOutput Total 710 ml 500 ml BalanceBalance 90 ml -100 ml Constitutional: alert, oriented Respiratory: diminished breath sounds Cardiovascular: regular rate and rhythm Gastrointestinal: soft Genitourinary - Male: CVA tenderness; No nl penis, No nl scrotum, No discharge, No other Results Results 24hrs Laboratory Tests Test 12/19/18 11:00 12/19/18 12:08 12/19/18 17:56 12/19/18 20:57 Blood Gas Blood arterial Specimen Source Arterial Blood 12/19/2018 11:03: Date Drawn 20 AM Arterial Blood pH 7.438 (Temp corrected) Arterial Blood 32.4 L pCO2 (Temp correct) Arterial Blood 48.6 *L pO2 (Temp corrected) Arterial Blood 21.4 L HCO3 Arterial Blood -2.3 Base Excess Arterial Blood 84.6 L Oxygen Saturation Manuel Test N/A Arterial Blood Right Brachial Gas Puncture Site Arterial 0.5 Blood Carboxyhemo globin Arterial Blood 0.4 Methemoglobin Blood Gas A-a O2 62.3 H Differential Oxyhemoglobin 83.8 L Percent Blood Gas 37.0 Temperature Blood Gas ROOM AIR Modality FiO2 21.0 Blood Gas HNAZARIAN RN Critical Value Read Back Blood Gas TM Notified Whom Blood Gas 12/19/2018 11:36: Notified Time 50 AM Bedside Glucose 164 177 136 Test 12/19/18 23:40 12/20/18 06:13 12/20/18 08:39 Blood Gas Blood arterial Specimen Source Arterial Blood 12/19/2018 11:30: Date Drawn 04 PM Arterial Blood pH 7.455 H (Temp corrected) Arterial Blood 29.5 L pCO2 (Temp correct) Arterial Blood 73.2 L pO2 (Temp corrected) Arterial Blood 20.3 L HCO3 Arterial Blood -2.9 Base Excess Arterial Blood 94.4 L Oxygen Saturation Manuel Test ACCEPTAB Arterial Blood Left Radial Gas Puncture Site Arterial 0.2 Blood Carboxyhemo globin Arterial Blood 0.2 Methemoglobin Blood Gas A-a O2 91.6 H Differential Oxyhemoglobin 94.0 Percent Blood Gas 37.0 Temperature Blood Gas NASAL CANNULA Modality FiO2 28.0 Blood Gas HI Notified Whom Blood Gas 12/19/2018 11:43: Notified Time 44 PM White Blood Count 7.6 Red Blood Count 2.47 L Hemoglobin 7.4 L Hematocrit 22.7 L Mean Corpuscular 91.9 Volume Mean Corpuscular 30.0 Hemoglobin Mean Corpuscular 32.6 Hemoglobin Concen t Red Cell 15.2 H Distribution Width Platelet Count 214 Mean Platelet 10.3 Volume Immature 0.500 H Granulocytes % Neutrophils % 84.0 H Lymphocytes % 10.5 L Monocytes % 5.0 Eosinophils % 0.0 Basophils % 0.0 Nucleated Red 0.0 Blood Cells % Immature 0.040 H Granulocytes # Neutrophils # 6.3 Lymphocytes # 0.8 Monocytes # 0.4 Eosinophils # 0.0 Basophils # 0.0 Nucleated Red 0.0 Blood Cells # Sodium Level 143 Potassium Level 4.3 Chloride Level 110 Carbon Dioxide 22 Level Anion Gap 11 Blood Urea 64 H Nitrogen Creatinine 1.63 H Est Glomerular Filtrat Rate mL/min Glucose Level 120 # Calcium Level 8.1 L Phosphorus Level 3.7 Bedside Glucose 126 Medications Medication Current Medications Allopurinol (Zyloprim) 100 mg BID PO Last administered on 12/20/18at 08:41; Admin Dose 100 MG; Start 12/16/18 at 09:00 Atorvastatin Calcium (Lipitor) 40 mg QHS PO Last administered on 12/19/18at 20:59; Admin Dose 40 MG; Start 12/16/18 at 21:00 Latanoprost (Xalatan) 1 drop HS BOTH EYES ; Start 12/16/18 at 02:00 Bisacodyl (Dulcolax) 10 mg BID PRN PO CONSTIPATION Last administered on 12/17/18 at 17:12; Admin Dose 10 MG; Start 12/16/18 at 00:00 Famotidine (Pepcid) 20 mg DAILY PO Last administered on 12/20/18 08:43; Admin Dose 20 MG; Start 12/16/18 at 09:00 Ferrous Sulfate (Ferrous Sulfate (Ec)) 325 mg BID PO Last administered on 12/20/18 08:42; Admin Dose 325 MG; Start 12/16/18 at 09:00 Folic Acid (Folic Acid) 1 mg DAILY PO Last administered on 12/20/18 08:42; Admin Dose 1 MG; Start 12/16/18 at 09:00 Levothyroxine Sodium (Synthroid) 125 mcg BEFORE BREAKFAST PO Last administered on 12/20/18 06:58; Admin Dose 125 MCG; Start 12/16/18 at 07:00 Nifedipine (Procardia Xl) 60 mg DAILY PO Last administered on 12/20/18 08:42; Admin Dose 60 MG; Start 12/16/18 at 09:00 Nitroglycerin (Nitroglycerin (Sl Tab) 0.4 Mg) 0.4 tab [id number] PRN SL CHEST PAIN; Start 12/16/18 at 00:00 Pregabalin (Lyrica) 25 mg TID PO Last administered on 12/20/18 08:41; Admin Dose 25 MG; Start 12/16/18 at 09:00 Terazosin HCl (Hytrin) 10 mg HS PO Last administered on 12/19/18 21:00; Admin Dose 10 MG; Start 12/16/18 at 21:00 Loratadine (Claritin) 10 mg DAILY PO Last administered on 12/20/18 08:43; Admin Dose 10 MG; Start 12/16/18 at 09:00 Cholecalciferol (Vitamin D) 2,000 unit DAILY PO Last administered on 12/20/18 08:42; Admin Dose 2,000 UNIT; Start 12/16/18 at 09:00 Acetaminophen (Tylenol Tab) 650 mg Q6H PRN PO MILD PAIN(1-3)OR ELEVATED TEMP Last administered on 12/16/18 22:42; Admin Dose 650 MG; Start 12/16/18 at 00:00 Ondansetron HCl (Zofran Inj) 4 mg Q4H PRN IV NAUSEA AND/OR VOMITING; Start 12/16/18 at 00:00 Vancomycin HCl (Vanco Iv Per Pharmacy) VANCOMYCIN PER PHARMACY PER PROTOCOL XX ; Start 12/16/18 at 00:00 Insulin Aspart (Novolog Insulin Pen) NOVOLOG *MILD* ALGORITHM WITH MEALS BEDTIME SC Last administered on 12/19/18at 18:08; Admin Dose 2 UNIT; Start 12/16/18 at 07:55 Levalbuterol (Xopenex Neb) 1.25 mg Q6H RESP THERAPY HHN Last administered on 12/20/18at 10:07; Admin Dose 1.25 MG; Start 12/16/18 at 08:00 Levalbuterol (Xopenex Neb) 1.25 mg Q2H RESP THERAPY PRN HHN Wheezing Last administered on 12/19/18at 23:18; Admin Dose 1.25 MG; Start 12/16/18 at 03:30 Miscellaneous Information (* Miscellaneous Pharmacy Order) Bimatoprost (Lunigan) 0.01%-... ONCE XX ; Start 12/16/18 at 03:30 Miscellaneous Information 1 ea NOTE XX ; Start 12/16/18 at 10:30 Glucose (Glutose) 15 gm Q15M PRN PO DECREASED GLUCOSE; Start 12/16/18 at 10:30 Glucose (Glutose) 22.5 gm Q15M PRN PO DECREASED GLUCOSE; Start 12/16/18 at 10:30 Dextrose (D50w Syringe) 25 ml Q15M PRN IV DECREASED GLUCOSE; Start 12/16/18 at 10:30 Dextrose (D50w Syringe) 50 ml Q15M PRN IV DECREASED GLUCOSE; Start 12/16/18 at 10:30 Glucagon (Glucagen) 1 mg Q15M PRN IM DECREASED GLUCOSE; Start 12/16/18 at 10:30 Glucose (Glutose) 15 gm Q15M PRN BUCCAL DECREASED GLUCOSE; Start 12/16/18 at 10:30 Methylprednisolone Sodium Succinate (Solu-Medrol) 40 mg Q12 IV Last administered on 12/20/18at 08:40; Admin Dose 40 MG; Start 12/16/18 at 10:30 Levofloxacin/ Dextrose 100 ml @ 100 mls/hr Q48H IVPB Last administered on 12/20/18 08:43; Admin Dose 100 MLS/HR; Start 12/18/18 at 09:00 Clonidine (Catapres) 0.1 mg Q6H PRN PO SBP>170; Start 12/16/18 at 11:00 Vancomycin HCl 250 ml @ 125 mls/hr Q36H IVPB Last administered on 12/19/18 03:32; Admin Dose 125 MLS/HR; Start 12/17/18 at 16:00 Metoprolol Tartrate (Lopressor) 5 mg Q4H PRN IV HR>110 Hold SBP<100; Start 12/16/18 at 19:30 Hydromorphone HCl (Dilaudid) 0.5 mg Q4H PRN IV SEVERE PAIN LEVEL 7-10 Last administered on 12/18/18 22:50; Admin Dose 0.5 MG; Start 12/17/18 at 07:30 Insulin Glargine (Lantus) 15 units QHS SC Last administered on 12/19/18 21:03; Admin Dose 15 UNITS; Start 12/17/18 at 21:00 Diagnostic Test (Pha) (Accu-Chek) 1 ea 02 XX Last administered on 12/19/18 01:24; Admin Dose 1 EA; Start 12/18/18 at 02:00 Polyethylene Glycol (Miralax) 17 gm DAILY PRN PO CONSTIPATION Last administered on 12/17/18 20:23; Admin Dose 17 GM; Start 12/17/18 at 13:30 Insulin Aspart (Novolog Insulin Pen) 5 unit WITH MEALS SC Last administered on 12/20/18 09:03; Admin Dose 5 UNIT; Start 12/18/18 at 17:55 Metoprolol Tartrate (Lopressor) 50 mg BID PO Last administered on 12/20/18 08:42; Admin Dose 50 MG; Start 12/18/18 at 21:00 Apixaban (Eliquis) 2.5 mg BID PO Last administered on 12/20/18 08:43; Admin Dose 2.5 MG; Start 12/19/18 at 09:00 Miscellaneous Information (*Rx Drug Level Order Reminder*) VANCO TROUGH @ 1,500 ON... ONCE ONCE XX ; Start 12/20/18 at 15:00; Stop 12/20/18 at 15:01 COOPER CARO Dec 20, 2018 10:38
--- NOTE | 2018-12-20 10:41 | CONS ---
Assessment/Plan Assessment/Plan Assessment/Plan (Daily) Assessment and recommendations; 1. Patient admitted with committee acquired pneumonia with significant clinical improvement. Pulse oximetry on room air is 94%. 2. History of prior CABG. 3. Severe rheumatoid arthritis. Patient has been on Remicade until about a year ago. 4. Gout 5. Chronic atrial for ablation. 6. Chronic renal insufficiency. 7. Anemia. 8. History of hypertension. 9. History of hypothyroidism. Consider discharge on oral Levaquin and doxycycline for 5 days. Follow-up in outpatient medical clinic. Consultation Date/Type/Reason Admit Date/Time Dec 15, 2018 at 18:41 Initial Consult Date 12/16/18 Type of Consult Pulmonary Pulmonary consult requested for evaluation of shortness of breath. Patient is a pleasant 88-year-old gentleman who came into the hospital yesterday with a few hours history of shortness of breath. Upon evaluation chest x-ray was done which is showing changes consistent with mild CHF. Patient also been complaining of cough wheezing as well as scant sputum production. Also had low- grade fever yesterday. Denies any abdominal pain, nausea vomiting, any high- grade fever body aches or myalgias. Past medical history; 1. Mild chronic renal insufficiency. 2. History of prior CABG. 3. 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 4. History of hypertension and diabetes. 5. History of gout and hypothyroidism. Medications; reviewed. Allergies; as outlined above. Social history; patient has been a cigar smoker. Family history; he is a , lives with his daughter. 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 Review of systems; denies any headache, sinus symptoms. Any seizures. Denies any dysphagia, sore throat, chest pain, angina, complains of cough and wheezing. Complains of scant sputum production. Denies any hemoptysis. Denies any abdominal pain, nausea vomiting. Any GI or urinary symptoms. Complains of very mild orthopnea. Denies any edema. Any weight change. General exam; elderly male, awake alert, currently no distress. Requesting Provider: IVAN AKHTAR MD Date/Time of Note DATE: 12/20/18 TIME: 10:39 24 HR Interval Summary Free Text/Dictation Patient's condition is stable. Denies any shortness of breath, coughing, wheezing, sputum production. He wants to go home. General exam; elderly male, laying comfortably in bed. Awake and alert. Currently in no distress. Exam/Review of Systems Exam Vitals Vital Signs Date Temp Pulse Resp B/P (MAP) Pulse Ox O2 O2 Flow FiO2 Time Delivery Rate 12/20/18 97 2.0 10:13 12/20/18 71 16 Nasal 10:11 Cannula 12/20/18 98.4 149/79 07:33 (102) 12/17/18 36 09:09 Intake and Output 12/19/18 12/19/18 12/20/18 1414:59 22:59 06:59 IntakeIntake Total 800 ml OutputOutput Total 710 ml BalanceBalance 90 ml Exam H EENT exam; supple neck, no JVD. No lymphadenopathy. Midline trachea. No thyromegaly. Patient has a multiple carious teeth. No neck masses. Chest exam; clear to auscultation. S1-S2 audible, no murmurs. Regular rhythm. There is a well-healed sternal scar. Abdomen exam; soft, no organomegaly. Bowel sounds audible. Nontender. Extremity exam; no peripheral edema or clubbing. PNEUM[employer]IC [employer] exam; no focal deficit. Results Result Diagram: 12/20/18 0613 12/20/18 0613 Results 24hrs Laboratory Tests Test 12/19/18 11:00 12/19/18 12:08 12/19/18 17:56 12/19/18 20:57 Blood Gas Blood arterial Specimen Source Arterial Blood 12/19/2018 11:03: Date Drawn 20 AM Arterial Blood pH 7.438 (Temp corrected) Arterial Blood 32.4 L pCO2 (Temp correct) Arterial Blood 48.6 *L pO2 (Temp corrected) Arterial Blood 21.4 L HCO3 Arterial Blood -2.3 Base Excess Arterial Blood 84.6 L Oxygen Saturation Manuel Test N/A Arterial Blood Right Brachial Gas Puncture Site Arterial 0.5 Blood Carboxyhemo globin Arterial Blood 0.4 Methemoglobin Blood Gas A-a O2 62.3 H Differential Oxyhemoglobin 83.8 L Percent Blood Gas 37.0 Temperature Blood Gas ROOM AIR Modality FiO2 21.0 Blood Gas HNAZARIAN RN Critical Value Read Back Blood Gas TM Notified Whom Blood Gas 12/19/2018 11:36: Notified Time 50 AM Bedside Glucose 164 177 136 Test 12/19/18 23:40 12/20/18 06:13 12/20/18 08:39 Blood Gas Blood arterial Specimen Source Arterial Blood 12/19/2018 11:30: Date Drawn 04 PM Arterial Blood pH 7.455 H (Temp corrected) Arterial Blood 29.5 L pCO2 (Temp correct) Arterial Blood 73.2 L pO2 (Temp corrected) Arterial Blood 20.3 L HCO3 Arterial Blood -2.9 Base Excess Arterial Blood 94.4 L Oxygen Saturation Manuel Test ACCEPTAB Arterial Blood Left Radial Gas Puncture Site Arterial 0.2 Blood Carboxyhemo globin Arterial Blood 0.2 Methemoglobin Blood Gas A-a O2 91.6 H Differential Oxyhemoglobin 94.0 Percent Blood Gas 37.0 Temperature Blood Gas NASAL CANNULA Modality FiO2 28.0 Blood Gas MA Notified Whom Blood Gas 12/19/2018 11:43: Notified Time 44 PM White Blood Count 7.6 Red Blood Count 2.47 L Hemoglobin 7.4 L Hematocrit 22.7 L Mean Corpuscular 91.9 Volume Mean Corpuscular 30.0 Hemoglobin Mean Corpuscular 32.6 Hemoglobin Concen t Red Cell 15.2 H Distribution Width Platelet Count 214 Mean Platelet 10.3 Volume Immature 0.500 H Granulocytes % Neutrophils % 84.0 H Lymphocytes % 10.5 L Monocytes % 5.0 Eosinophils % 0.0 Basophils % 0.0 Nucleated Red 0.0 Blood Cells % Immature 0.040 H Granulocytes # Neutrophils # 6.3 Lymphocytes # 0.8 Monocytes # 0.4 Eosinophils # 0.0 Basophils # 0.0 Nucleated Red 0.0 Blood Cells # Sodium Level 143 Potassium Level 4.3 Chloride Level 110 Carbon Dioxide 22 Level Anion Gap 11 Blood Urea 64 H Nitrogen Creatinine 1.63 H Est Glomerular Filtrat Rate mL/min Glucose Level 120 # Calcium Level 8.1 L Phosphorus Level 3.7 Bedside Glucose 126 Medications Medication Current Medications Allopurinol (Zyloprim) 100 mg BID PO Last administered on 12/20/18at 08:41; Admin Dose 100 MG; Start 12/16/18 at 09:00 Atorvastatin Calcium (Lipitor) 40 mg QHS PO Last administered on 12/19/18at 20:59; Admin Dose 40 MG; Start 12/16/18 at 21:00 Latanoprost (Xalatan) 1 drop HS BOTH EYES ; Start 12/16/18 at 02:00 Bisacodyl (Dulcolax) 10 mg BID PRN PO CONSTIPATION Last administered on 12/17/18 17:12; Admin Dose 10 MG; Start 12/16/18 at 00:00 Famotidine (Pepcid) 20 mg DAILY PO Last administered on 12/20/18 08:43; Admin Dose 20 MG; Start 12/16/18 at 09:00 Ferrous Sulfate (Ferrous Sulfate (Ec)) 325 mg BID PO Last administered on 12/20/18 08:42; Admin Dose 325 MG; Start 12/16/18 at 09:00 Folic Acid (Folic Acid) 1 mg DAILY PO Last administered on 12/20/18 08:42; Admin Dose 1 MG; Start 12/16/18 at 09:00 Levothyroxine Sodium (Synthroid) 125 mcg BEFORE BREAKFAST PO Last administered on 12/20/18 06:58; Admin Dose 125 MCG; Start 12/16/18 at 07:00 Nifedipine (Procardia Xl) 60 mg DAILY PO Last administered on 12/20/18 08:42; Admin Dose 60 MG; Start 12/16/18 at 09:00 Nitroglycerin (Nitroglycerin (Sl Tab) 0.4 Mg) 0.4 tab [id number] PRN SL CHEST PAIN; Start 12/16/18 at 00:00 Pregabalin (Lyrica) 25 mg TID PO Last administered on 12/20/18 08:41; Admin Dose 25 MG; Start 12/16/18 at 09:00 Terazosin HCl (Hytrin) 10 mg HS PO Last administered on 12/19/18 21:00; Admin Dose 10 MG; Start 12/16/18 at 21:00 Loratadine (Claritin) 10 mg DAILY PO Last administered on 12/20/18 08:43; Admin Dose 10 MG; Start 12/16/18 at 09:00 Cholecalciferol (Vitamin D) 2,000 unit DAILY PO Last administered on 12/20/18 08:42; Admin Dose 2,000 UNIT; Start 12/16/18 at 09:00 Acetaminophen (Tylenol Tab) 650 mg Q6H PRN PO MILD PAIN(1-3)OR ELEVATED TEMP Last administered on 12/16/18 22:42; Admin Dose 650 MG; Start 12/16/18 at 00:00 Ondansetron HCl (Zofran Inj) 4 mg Q4H PRN IV NAUSEA AND/OR VOMITING; Start at 00:00 Vancomycin HCl (Vanco Iv Per Pharmacy) VANCOMYCIN PER PHARMACY PER PROTOCOL XX ; Start 12/16/18 at 00:00 Insulin Aspart (Novolog Insulin Pen) NOVOLOG *MILD* ALGORITHM WITH MEALS BEDTI ME SC Last administered on 12/19/18 18:08; Admin Dose 2 UNIT; Start 12/16/18 at 07:55 Levalbuterol (Xopenex Neb) 1.25 mg Q6H RESP THERAPY HHN Last administered on 12/20/18at 10:07; Admin Dose 1.25 MG; Start 12/16/18 at 08:00 Levalbuterol (Xopenex Neb) 1.25 mg Q2H RESP THERAPY PRN HHN Wheezing Last administered on 12/19/18at 23:18; Admin Dose 1.25 MG; Start 12/16/18 at 03:30 Miscellaneous Information (* Miscellaneous Pharmacy Order) Bimatoprost (Lunigan) 0.01%-... ONCE XX ; Start 12/16/18 at 03:30 Miscellaneous Information 1 ea NOTE XX ; Start 12/16/18 at 10:30 Glucose (Glutose) 15 gm Q15M PRN PO DECREASED GLUCOSE; Start 12/16/18 at 10:30 Glucose (Glutose) 22.5 gm Q15M PRN PO DECREASED GLUCOSE; Start 12/16/18 at 10:30 Dextrose (D50w Syringe) 25 ml Q15M PRN IV DECREASED GLUCOSE; Start 12/16/18 at 10:30 Dextrose (D50w Syringe) 50 ml Q15M PRN IV DECREASED GLUCOSE; Start 12/16/18 at 10:30 Glucagon (Glucagen) 1 mg Q15M PRN IM DECREASED GLUCOSE; Start 12/16/18 at 10:30 Glucose (Glutose) 15 gm Q15M PRN BUCCAL DECREASED GLUCOSE; Start 12/16/18 at 10:30 Methylprednisolone Sodium Succinate (Solu-Medrol) 40 mg Q12 IV Last administered on 12/20/18at 08:40; Admin Dose 40 MG; Start 12/16/18 at 10:30 Levofloxacin/ Dextrose 100 ml @ 100 mls/hr Q48H IVPB Last administered on 12/20/18at 08:43; Admin Dose 100 MLS/HR; Start 12/18/18 at 09:00 Clonidine (Catapres) 0.1 mg Q6H PRN PO SBP>170; Start 12/16/18 at 11:00 Vancomycin HCl 250 ml @ 125 mls/hr Q36H IVPB Last administered on 12/19/18 03:32; Admin Dose 125 MLS/HR; Start 12/17/18 at 16:00 Metoprolol Tartrate (Lopressor) 5 mg Q4H PRN IV HR>110 Hold SBP<100; Start 12/16/18 at 19:30 Hydromorphone HCl (Dilaudid) 0.5 mg Q4H PRN IV SEVERE PAIN LEVEL 7-10 Last administered on 12/18/18 22:50; Admin Dose 0.5 MG; Start 12/17/18 at 07:30 Insulin Glargine (Lantus) 15 units QHS SC Last administered on 12/19/18 21:03; Admin Dose 15 UNITS; Start 12/17/18 at 21:00 Diagnostic Test (Pha) (Accu-Chek) 1 ea 02 XX Last administered on 12/19/18 01:24; Admin Dose 1 EA; Start 12/18/18 at 02:00 Polyethylene Glycol (Miralax) 17 gm DAILY PRN PO CONSTIPATION Last administered on 12/17/18 20:23; Admin Dose 17 GM; Start 12/17/18 at 13:30 Insulin Aspart (Novolog Insulin Pen) 5 unit WITH MEALS SC Last administered on 12/20/18 09:03; Admin Dose 5 UNIT; Start 12/18/18 at 17:55 Metoprolol Tartrate (Lopressor) 50 mg BID PO Last administered on 12/20/18 08:42; Admin Dose 50 MG; Start 12/18/18 at 21:00 Apixaban (Eliquis) 2.5 mg BID PO Last administered on 12/20/18 08:43; Admin Dose 2.5 MG; Start 12/19/18 at 09:00 Miscellaneous Information (*Rx Drug Level Order Reminder*) VANCO TROUGH @ 1,500 ON... ONCE ONCE XX ; Start 12/20/18 at 15:00; Stop 12/20/18 at 15:01 LOVE HAWK Dec 20, 2018 10:41
--- NOTE | 2018-12-20 11:38 | PDOCDIS ---
Discharge Instructions CONDITION [id number] Patient Condition: [id number] Stable HOME CARE INSTRUCTIONS: [id number] Diet Instructions: [id number] Reduced Sodium ACTIVITY: [id number] Activity Restrictions: [id number] Slowly Increase Activity Rest between Activity Avoid heavy lifting No Sexual Activity FOLLOW UP/APPOINTMENTS Follow-up Plan PCP 1 week COOPER CARO Dec 20, 2018 11:38
[2018-12-20] MEDS ORDERED: METO-429 PO (11:42)
[2018-12-20] MEDS ORDERED: LEVO500T48 PO (11:42)
[2018-12-20] MEDS ORDERED: DOXY100C42 PO (11:42)
--- NOTE | 2018-12-20 11:45 | DS ---
Date/Time of Note Date/Time of Note DATE: 12/20/18 TIME: 11:44 Discharge Summary Admission/Discharge Info Admit Date/Time Dec 15, 2018 at 18:41 Discharge Date/Time Patient Condition: Stable Consults cardiology ,dr Robertson/Elizabeth, Dr Allen, pulmonology Procedures echocardiogram Hospital Course This is an 88-year-old male with a past medical history of rheumatoid arthritis, degenerative disk disease, history of CABG in the past, peripheral vascular disease, presented to the emergency department after being brought by the daughter for weakness. According to the patient, he has also been having shortness of breath and cough for the past 2 days. According to the patient, he never came in contact with anybody sick. The patient did not check his fevers at home. The patient denied any abdominal pain, nausea, vomiting or diarrhea. He came to the emergency department for further evaluation. On arrival to the ED, the patient was found to have fevers of 102, blood pressure was 162/72. White count was 11.1, hemoglobin 8.7, platelet count 195. BMP showed BUN of 43 and creatinine of 2.10, increased from last creatinine of 1.3. Lactate was 1.6. Influenza A and B were negative. The patient had initial chest x-ray that showed no consolidative pulmonary infiltrates. Lungs are hyperinflated suggesting COPD, status post CABG. The patient received Levaquin, NS 2 liters' bolus, Rocephin and azithromycin and after that, the patient went into respiratory distress, was put on high flow oxygen and was given Lasix, steroid and nebulizer. Repeat chest x-ray shows bilateral infiltrates. PAST MEDICAL HISTORY: 1. History of CABG. 2. Rheumatoid arthritis. 3. History of AFib. 4. History of coronary artery disease. 5. Hypertension. 6. History of peripheral vascular disease. Admission ds: 1. Shortness of breath, cough associated with fevers. On admission, the chest x-ray showed no infiltrates; however few hours later after the patient received fluids, the patient's chest x-ray was much worse and was short of breath. This is likely complication of underlying pneumonia with fluid overload. 2. Fevers, likely secondary to pneumonia.more On the right side, also has UTI final urine culture +mixed gram +positive organisms 3. Acute on chronic renal failure likely secondary to sepsis, systemic inflammatory response syndrome improving, he has likely elevated BUN to creatinine ratio likely due to use of steroids 4. Hypertension. 5. Hyperlipidemia. 6. Leukocytosis with systemic inflammatory response syndrome. 7. Chronic anemia 8. Hyperlipidemia. 9. History of rheumatoid arthritis. 10. Diabetes type 2, uncontrolled 11. Hypothyroidism. 12. Peripheral vascular disease, on Plavix 13 UTI 14 Chronic A. FIB During hospitalization pt was on telemetry service for close rhythm monitoring. He was consulted by Dr Robertson. He was started on Eliquiz due to his chronic afib. Pt was continued on BB and CCB and started on hydralazine to bring BP closely. -Continue abx's and f/u cx data -Continue steroids/bronchodilators -Follow rhythm closely on tele Dr Allen, pulmonology was a consult. He recommended pt a breathing treatment over the clock, supplemental oxygen. Pt was on IV a/b. His creatinine, I and O was measured daily. 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 Home Meds Active Scripts Methylprednisolone* (Medrol* DOSE PACK) 4 Mg/Dose-Pack Tab.ds.pk, 4 MG PO . DIRECTED for 7 Days, PACKET Prov:IVAN AKHTAR MD 12/20/18 Apixaban* (Eliquis*) 5 Mg Tablet, 2.5 MG PO BID for 30 Days, TAB Prov:IVAN AKHTAR MD 12/20/18 Doxycycline Monohydrate (Doxycycline Monohydrate) 100 Mg Capsule, 100 MG PO BID for 5 Days, CAP Prov:OCOPER CARO 12/20/18 Metoprolol Tartrate* (Lopressor*) 50 Mg Tab, 50 MG PO BID for 30 Days, TAB Prov:COOPER CARO 12/20/18 Levofloxacin* (Levaquin*) 500 Mg Tablet, 500 MG PO DAILY for 5 Days, TAB Prov:COOPER CARO 12/20/18 Reported Medications Polyethylene Glycol* (Miralax*) 17 Gm Powd.pack, 17 GM PO DAILY, #30 PACKET 12/15/18 Nifedipine* (Nifedipine ER*) 60 Mg Tablet.sa, 60 MG PO DAILY, TAB.SA 12/15/18 Bisacodyl* (Bisacodyl*) 5 Mg Tablet.dr, 10 MG PO BID PRN for CONSTIPATION, TAB 12/15/18 Pregabalin* (Lyrica*) 25 Mg Capsule, 25 MG PO TID, CAP 12/15/18 Bimatoprost* (Lumigan*) 0.01%-5 Ml Opht Drops, 1 DROP BOTH EYES HS, EA 03/02/18 Cetirizine Hcl* (Cetirizine Hcl*) 10 Mg Tablet, 10 MG PO DAILY, #30 TAB 03/02/18 Insulin Glargine* (Lantus*) 100 Unit/Ml Soln, 10 UNIT SC QHS, #1 VIAL 03/02/18 Ergocalciferol (Vitamin D2) (VITAMIN D2) 2,000 Unit Tablet, 2000 UNIT PO DAILY, TAB 03/02/18 Famotidine* (Famotidine*) 20 Mg Tablet, 20 MG PO DAILY, #30 TAB 03/02/18 Ferrous Sulfate* (Ferrous Sulfate*) 325 Mg Tabec, 325 MG PO BID, TAB 03/02/18 Nitroglycerin* (Nitrostat*) 0.4 Mg Tab.subl, 0.4 MG SL Q5MIN PRN for CHEST PAIN, BOTTLE 03/02/18 Terazosin Hcl* (Terazosin Hcl*) 10 Mg Capsule, 10 MG PO HS, CAP 03/02/18 Levothyroxine Sodium* (Levoxyl*) 125 Mcg Tablet, 125 MCG PO BEFORE BREAKFAST, #30 TAB 03/02/18 Allopurinol* (Allopurinol*) 100 Mg Tablet, 100 MG PO BID, TAB 03/02/18 Atorvastatin* (Atorvastatin*) 40 Mg Tablet, 40 MG PO QHS, #30 TAB 03/02/18 Folic Acid* (Folic Acid*) 1 Mg Tablet, 1 MG PO DAILY, TAB 03/02/18 Discontinued Reported Medications Metoprolol Tartrate* (Lopressor*) 25 Mg Tablet, 25 MG PO BID, #60 TAB 12/15/18 Aspirin (Low Dose Aspirin) 81 Mg Tablet.dr, 81 MG PO DAILY, #30 TAB 03/02/18 Clopidogrel Bisulfate (Clopidogrel) 75 Mg Tablet, 75 MG PO DAILY, #30 TAB 03/02/18 Pregabalin* (Lyrica*) 50 Mg Capsule, 50 MG PO BID, CAP 03/02/18 Discontinued Scripts Megestrol Acetate* (Megace*) 40 Mg Tab, 80 MG PO BID for 10 Days, #20 TAB Prov:ADIN CESAR MD 06/18/18 Bisacodyl* (Bisacodyl*) 5 Mg Tablet.dr, 10 MG PO BID PRN for CONSTIPATION for 28 Days Prov:ADIN CESAR MD 06/18/18 Docusate Sodium (Dok) 100 Mg Capsule, 100 MG PO TID for 28 Days, #30 CAP Prov:ADIN CESAR MD 06/18/18 [Polyethylene Glycol] 17 GM/PKT LIQ No Conflict Check, 17 GM PO DAILY for 28 Days, #30 Prov:ADIN CESAR MD 06/18/18 Metoprolol Tartrate* (Lopressor*) 25 Mg Tab, 25 MG PO BID for 30 Days, TAB hold if hr<60 and sbp<100 Prov:IVAN AKHTAR MD 03/06/18 Follow-up Plan PCP 1 week Primary Care Provider Adin Cesar MD Time spent on discharge: < 30 minutes Pending Labs Laboratory Tests Test 12/19/18 12:08 12/19/18 17:56 12/19/18 20:57 12/19/18 23:40 Bedside 164 177 136 Glucose mg/dL (70-220) mg/dL (70-220) mg/dL (70-220) Blood Gas Blood arterial Specimen Source Arterial Blood 12/19/2018 11:3 Date Drawn 0:04 PM Arterial Blood 7.455 (7.350-7 pH .450) (Temp corrected ) Arterial Blood 29.5 pCO2 mmhg (35-45) (Temp correct) Arterial Blood 73.2 pO2 mmHG (80-90.0) (Temp corrected ) Arterial Blood 20.3 HCO3 mmol/L (22.0-2 6.0) Arterial Blood -2.9 Base Excess mmol/L (-3.0-3 ) Arterial Blood 94.4 Oxygen Saturati mmHG (95.0-100 on .0) Manuel Test ACCEPTAB Arterial Blood Left Radial Gas Puncture Site Arterial 0.2 Blood Carboxyhe % (0.0-3.0) moglobin Arterial Blood 0.2 Methemoglobin % (0.0-1.5) Blood Gas A-a 91.6 O2 mmHg (7.0-24.0 Differential ) Oxyhemoglobin 94.0 Percent % (93.0-99.0) Blood Gas 37.0 C Temperature Blood Gas NASAL CANNULA Modality FiO2 28.0 % Blood Gas MA Notified Whom Blood Gas 12/19/2018 11:4 Notified Time 3:44 PM Test 12/20/18 06:13 12/20/18 08:39 White Blood 7.6 Count 10^3/ul (4.8-10 .8) Red Blood 2.47 Count 10^6/ul (4.70-6 .10) Hemoglobin 7.4 g/dl (14.0-18.0 ) Hematocrit 22.7 % (42.0-52.0) Mean 91.9 Corpuscular fl (82.0-101.0) Volume Mean 30.0 Corpuscular pg (29.0-33.0) Hemoglobin Mean 32.6 Corpuscular g/dl (32.0-37.0 Hemoglobin Conc ) ent Red Cell 15.2 Distribution % (11.5-14.5) Width Platelet Count 214 10^3/UL (140-41 5) Mean Platelet 10.3 Volume fl (7.4-10.4) Immature 0.500 Granulocytes % % (0.001-0.429) Neutrophils % 84.0 % (39.0-77.0) Lymphocytes % 10.5 % (15.0-51.0) Monocytes % 5.0 % (0.0-11.0) Eosinophils % 0.0 % (0.0-7.0) Basophils % 0.0 % (0.0-2.0) Nucleated Red 0.0 Blood Cells % /100WBC (0.0-0. 0) Immature 0.040 Granulocytes # 10^3/ul (0.0-0. 031) Neutrophils # 6.3 10^3/ul (1.6-7. 5) Lymphocytes # 0.8 10^3/ul (0.8-2. 9) Monocytes # 0.4 10^3/ul (0.3-0. 9) Eosinophils # 0.0 10^3/ul (0.0-0. 5) Basophils # 0.0 10^3/ul (0.0-0. 1) Nucleated Red 0.0 Blood Cells # 10^3/ul (0.0-0. 0) Sodium Level 143 mmol/L (135-144 ) Potassium 4.3 Level mmol/L (3.5-5.1 ) Chloride Level 110 mmol/L (97-110) Carbon Dioxide 22 Level mmol/L (21-31) Anion Gap 11 (5-13) Blood Urea 64 mg/dl (7-20) Nitrogen Creatinine 1.63 mg/dl (0.61-1.2 4) Est Glomerular mL/min (>60) Filtrat Rate mL/min Glucose Level 120 mg/dl (70-220) Calcium Level 8.1 mg/dl (8.4-10.2 ) Phosphorus 3.7 Level mg/dl (2.5-4.9) Bedside 126 Glucose mg/dL (70-220) COOPER CARO 29, 2019 11:44
--- NOTE | 2018-12-20 15:41 | CONS ---
Assessment/Plan Assessment/Plan Hospital Course (Demo Recall) IMPRESSION: 1. Atrial fibrillation, rate controlled at this time but not on systemic anticoagulation,now on eliquis 2. Hypertension, mildly elevated. 3. Dyslipidemia. 4. History of coronary artery disease, status post coronary artery bypass graft surgery. 5. Diastolic dysfunction by most recent echo 02/2018. 6. Diabetes mellitus. 7. Fevers, likely consistent with pneumonia. 8. Rheumatoid arthritis. 9. Degenerative joint disease. 10. Hypothyroidism. 11. Peripheral arterial disease. 12. Renal failure. Recc: -Tele -Continue newly started eliquis for AF with elevated CHADSVASC score -Continue BB and CCB and now started on hydralazine and follow BP clsoely -Continue abx's and f/u cx data -Continue steroids/bronchodilators -Follow rhythm closely on tele Consultation Date/Type/Reason Admit Date/Time Dec 15, 2018 at 18:41 Initial Consult Date 12/16/18 Type of Consult Cardiology Reason for Consultation AF Requesting Provider: IVAN AKHTAR MD Date/Time of Note DATE: 12/20/18 TIME: 15:38 Exam/Review of Systems Vital Signs Vitals Vital Signs Date Temp Pulse Resp B/P (MAP) Pulse Ox O2 O2 Flow FiO2 Time Delivery Rate 12/20/18 61 13:54 12/20/18 89 21 13:50 12/20/18 16 13:49 12/20/18 98.1 147/65 11:28 (92) 12/20/18 2.0 10:13 12/20/18 Nasal 10:11 Cannula Intake and Output 12/19/18 12/19/18 12/20/18 1515:00 23:00 07:00 IntakeIntake Total 800 ml 400 ml OutputOutput Total 710 ml 500 ml BalanceBalance 90 ml -100 ml Exam Exam Review of Systems: CONSTITUTIONAL: No fevers, chills. PULMONARY: No sob CARDIOVASCULAR: No chest pain/palpitations GASTROINTESTINAL: No nausea/vomiting. GENITOURINARY: No hematuria/dysuria. MUSCULOSKELETAL: No myagias/arthalgias. PSYCHIATRIC: The patient denies depression. NEUROLOGIC: No weakness Constitutional: alert Psych: no complaints Head: normocephalic ENMT: mucosa pink and moist Neck: supple, jvd (9 cm water) Respiratory: diminished breath sounds (at bases/B) Cardiovascular: irregular rhythm Gastrointestinal: soft, non-tender Musculoskeletal: muscle tone (normal) Extremities: edema (none) Neurological: other (No focal deficits) Labs Result Diagram: 12/20/18 0613 12/20/18 0613 Results 24hrs Laboratory Tests Test 12/19/18 17:56 12/19/18 20:57 12/19/18 23:40 12/20/18 06:13 Bedside Glucose 177 136 Blood Gas Blood arterial Specimen Source Arterial Blood 12/19/2018 11:30: Date Drawn 04 PM Arterial Blood pH 7.455 H (Temp corrected) Arterial Blood 29.5 L pCO2 (Temp correct) Arterial Blood 73.2 L pO2 (Temp corrected) Arterial Blood 20.3 L HCO3 Arterial Blood -2.9 Base Excess Arterial Blood 94.4 L Oxygen Saturation Manuel Test ACCEPTAB Arterial Blood Left Radial Gas Puncture Site Arterial 0.2 Blood Carboxyhemo globin Arterial Blood 0.2 Methemoglobin Blood Gas A-a O2 91.6 H Differential Oxyhemoglobin 94.0 Percent Blood Gas 37.0 Temperature Blood Gas NASAL CANNULA Modality FiO2 28.0 Blood Gas OK Notified Whom Blood Gas 12/19/2018 11:43: Notified Time 44 PM White Blood Count 7.6 Red Blood Count 2.47 L Hemoglobin 7.4 L Hematocrit 22.7 L Mean Corpuscular 91.9 Volume Mean Corpuscular 30.0 Hemoglobin Mean Corpuscular 32.6 Hemoglobin Concen t Red Cell 15.2 H Distribution Width Platelet Count 214 Mean Platelet 10.3 Volume Immature 0.500 H Granulocytes % Neutrophils % 84.0 H Lymphocytes % 10.5 L Monocytes % 5.0 Eosinophils % 0.0 Basophils % 0.0 Nucleated Red 0.0 Blood Cells % Immature 0.040 H Granulocytes # Neutrophils # 6.3 Lymphocytes # 0.8 Monocytes # 0.4 Eosinophils # 0.0 Basophils # 0.0 Nucleated Red 0.0 Blood Cells # Sodium Level 143 Potassium Level 4.3 Chloride Level 110 Carbon Dioxide 22 Level Anion Gap 11 Blood Urea 64 H Nitrogen Creatinine 1.63 H Est Glomerular Filtrat Rate mL/min Glucose Level 120 # Calcium Level 8.1 L Phosphorus Level 3.7 Test 12/20/18 08:39 12/20/18 12:07 Bedside Glucose 126 145 Medications Medications Current Medications Allopurinol (Zyloprim) 100 mg BID PO Last administered on 12/20/18 08:41; Admin Dose 100 MG; Start 12/16/18 at 09:00 Atorvastatin Calcium (Lipitor) 40 mg QHS PO Last administered on 12/19/18 20:59; Admin Dose 40 MG; Start 12/16/18 at 21:00 Latanoprost (Xalatan) 1 drop HS BOTH EYES ; Start 12/16/18 at 02:00 Bisacodyl (Dulcolax) 10 mg BID PRN PO CONSTIPATION Last administered on 12/17/18 17:12; Admin Dose 10 MG; Start 12/16/18 at 00:00 Famotidine (Pepcid) 20 mg DAILY PO Last administered on 12/20/18 08:43; Admin Dose 20 MG; Start 12/16/18 at 09:00 Ferrous Sulfate (Ferrous Sulfate (Ec)) 325 mg BID PO Last administered on 12/20/18 08:42; Admin Dose 325 MG; Start 12/16/18 at 09:00 Folic Acid (Folic Acid) 1 mg DAILY PO Last administered on 12/20/18 08:42; A dmin Dose 1 MG; Start 12/16/18 at 09:00 Levothyroxine Sodium (Synthroid) 125 mcg BEFORE BREAKFAST PO Last administered on 12/20/18 06:58; Admin Dose 125 MCG; Start 12/16/18 at 07:00 Nifedipine (Procardia Xl) 60 mg DAILY PO Last administered on 12/20/18 08:42; Admin Dose 60 MG; Start 12/16/18 at 09:00 Nitroglycerin (Nitroglycerin (Sl Tab) 0.4 Mg) 0.4 tab [id number] PRN SL CHEST PAIN; Start 12/16/18 at 00:00 Pregabalin (Lyrica) 25 mg TID PO Last administered on 12/20/18 12:07; Admin Dose 25 MG; Start 12/16/18 at 09:00 Terazosin HCl (Hytrin) 10 mg HS PO Last administered on 12/19/18 21:00; Admin Dose 10 MG; Start 12/16/18 at 21:00 Loratadine (Claritin) 10 mg DAILY PO Last administered on 12/20/18 08:43; Admin Dose 10 MG; Start 12/16/18 at 09:00 Cholecalciferol (Vitamin D) 2,000 unit DAILY PO Last administered on 12/20/18 08:42; Admin Dose 2,000 UNIT; Start 12/16/18 at 09:00 Acetaminophen (Tylenol Tab) 650 mg Q6H PRN PO MILD PAIN(1-3)OR ELEVATED TEMP Last administered on 12/16/18 22:42; Admin Dose 650 MG; Start 12/16/18 at 00:00 Ondansetron HCl (Zofran Inj) 4 mg Q4H PRN IV NAUSEA AND/OR VOMITING; Start 12/16/18 at 00:00 Vancomycin HCl (Vanco Iv Per Pharmacy) VANCOMYCIN PER PHARMACY PER PROTOCOL XX ; Start 12/16/18 at 00:00 Insulin Aspart (Novolog Insulin Pen) NOVOLOG *MILD* ALGORITHM WITH MEALS BEDTIME SC Last administered on 12/20/18 12:46; Admin Dose 1 UNIT; Start 12/16/18 at 07:55 Levalbuterol (Xopenex Neb) 1.25 mg Q6H RESP THERAPY HHN Last administered on 12/20/18 13:41; Admin Dose 1.25 MG; Start 12/16/18 at 08:00 Levalbuterol (Xopenex Neb) 1.25 mg Q2H RESP THERAPY PRN HHN Wheezing Last administered on 12/19/18at 23:18; Admin Dose 1.25 MG; Start 12/16/18 at 03:30 Miscellaneous Information (* Miscellaneous Pharmacy Order) Bimatoprost (Lunigan) 0.01%-... ONCE XX ; Start 12/16/18 at 03:30 Miscellaneous Information 1 ea NOTE XX ; Start 12/16/18 at 10:30 Glucose (Glutose) 15 gm Q15M PRN PO DECREASED GLUCOSE; Start 12/16/18 at 10:30 Glucose (Glutose) 22.5 gm Q15M PRN PO DECREASED GLUCOSE; Start 12/16/18 at 10:30 Dextrose (D50w Syringe) 25 ml Q15M PRN IV DECREASED GLUCOSE; Start 12/16/18 at 10:30 Dextrose (D50w Syringe) 50 ml Q15M PRN IV DECREASED GLUCOSE; Start 12/16/18 at 10:30 Glucagon (Glucagen) 1 mg Q15M PRN IM DECREASED GLUCOSE; Start 12/16/18 at 10:30 Glucose (Glutose) 15 gm Q15M PRN BUCCAL DECREASED GLUCOSE; Start 12/16/18 at 10:30 Methylprednisolone Sodium Succinate (Solu-Medrol) 40 mg Q12 IV Last administered on 12/20/18 08:40; Admin Dose 40 MG; Start 12/16/18 at 10:30 Levofloxacin/ Dextrose 100 ml @ 100 mls/hr Q48H IVPB Last administered on 12/20/18 08:43; Admin Dose 100 MLS/HR; Start 12/18/18 at 09:00 Clonidine (Catapres) 0.1 mg Q6H PRN PO SBP>170; Start 12/16/18 at 11:00 Vancomycin HCl 250 ml @ 125 mls/hr Q36H IVPB Last administered on 12/19/18 03:32; Admin Dose 125 MLS/HR; Start 12/17/18 at 16:00 Metoprolol Tartrate (Lopressor) 5 mg Q4H PRN IV HR>110 Hold SBP<100; Start 12/16/18 at 19:30 Hydromorphone HCl (Dilaudid) 0.5 mg Q4H PRN IV SEVERE PAIN LEVEL 7-10 Last administered on 12/18/18 22:50; Admin Dose 0.5 MG; Start 12/17/18 at 07:30 Insulin Glargine (Lantus) 15 units QHS SC Last administered on 12/19/18 21:03; Admin Dose 15 UNITS; Start 12/17/18 at 21:00 Diagnostic Test (Pha) (Accu-Chek) 1 ea 02 XX Last administered on 12/19/18 01:24; Admin Dose 1 EA; Start 12/18/18 at 02:00 Polyethylene Glycol (Miralax) 17 gm DAILY PRN PO CONSTIPATION Last administered on 12/17/18 20:23; Admin Dose 17 GM; Start 12/17/18 at 13:30 Insulin Aspart (Novolog Insulin Pen) 5 unit WITH MEALS SC Last administered on 12/20/18 12:45; Admin Dose 5 UNIT; Start 12/18/18 at 17:55 Metoprolol Tartrate (Lopressor) 50 mg BID PO Last administered on 12/20/18 08:42; Admin Dose 50 MG; Start 12/18/18 at 21:00 Apixaban (Eliquis) 2.5 mg BID PO Last administered on 12/20/18at 08:43; Admin Dose 2.5 MG; Start 12/19/18 at 09:00 Pantoprazole (Protonix Tab) 40 mg DAILY@06 PO ; Start 12/21/18 at 06:00 Hydralazine HCl (Apresoline) 10 mg TID PO Last administered on 12/20/18at 13:32; Admin Dose 10 MG; Start 12/20/18 at 13:00 MARJORIE JAIN Dec 20, 2018 15:41
--- NOTE | 2018-12-20 15:43 | CONS ---
Assessment/Plan Assessment/Plan Hospital Course (Demo Recall) IMPRESSION: 1. Atrial fibrillation, rate controlled at this time but not on systemic anticoagulation,now on eliquis 2. Hypertension, mildly elevated. 3. Dyslipidemia. 4. History of coronary artery disease, status post coronary artery bypass graft surgery. 5. Diastolic dysfunction by most recent echo 02/2018. 6. Diabetes mellitus. 7. Fevers, likely consistent with pneumonia. 8. Rheumatoid arthritis. 9. Degenerative joint disease. 10. Hypothyroidism. 11. Peripheral arterial disease. 12. Renal failure. Recc: -Tele -Continue newly started eliquis for AF with elevated CHADSVASC score -Continue BB and CCB and now started on hydralazine and follow BP clsoely -Continue abx's and f/u cx data -Continue steroids/bronchodilators -Follow rhythm closely on tele Consultation Date/Type/Reason Admit Date/Time Dec 15, 2018 at 18:41 Initial Consult Date 12/16/18 Type of Consult Cardiology Reason for Consultation AF Requesting Provider: IVAN AKHTAR MD Date/Time of Note DATE: 12/20/18 TIME: 15:41 Exam/Review of Systems Vital Signs Vitals Vital Signs Date Temp Pulse Resp B/P (MAP) Pulse Ox O2 O2 Flow FiO2 Time Delivery Rate 12/20/18 61 13:54 12/20/18 89 21 13:50 12/20/18 16 13:49 12/20/18 98.1 147/65 11:28 (92) 12/20/18 2.0 10:13 12/20/18 Nasal 10:11 Cannula Intake and Output 12/19/18 12/19/18 12/20/18 1515:00 23:00 07:00 IntakeIntake Total 800 ml 400 ml OutputOutput Total 710 ml 500 ml BalanceBalance 90 ml -100 ml Exam Exam Review of Systems: CONSTITUTIONAL: No fevers, chills. PULMONARY: No sob CARDIOVASCULAR: No chest pain/palpitations GASTROINTESTINAL: No nausea/vomiting. GENITOURINARY: No hematuria/dysuria. MUSCULOSKELETAL: No myagias/arthalgias. PSYCHIATRIC: The patient denies depression. NEUROLOGIC: No weakness Constitutional: alert Psych: no complaints Head: normocephalic ENMT: mucosa pink and moist Neck: supple, jvd (8 cm water) Respiratory: clear to auscultation Cardiovascular: regular rate and rhythm Gastrointestinal: soft, non-tender Musculoskeletal: muscle tone (normal) Extremities: edema (none) Neurological: other (No focal deficits) Labs Result Diagram: 12/20/18 0613 12/20/18 0613 Results 24hrs Laboratory Tests Test 12/19/18 17:56 12/19/18 20:57 12/19/18 23:40 12/20/18 06:13 Bedside Glucose 177 136 Blood Gas Blood arterial Specimen Source Arterial Blood 12/19/2018 11:30: Date Drawn 04 PM Arterial Blood pH 7.455 H (Temp corrected) Arterial Blood 29.5 L pCO2 (Temp correct) Arterial Blood 73.2 L pO2 (Temp corrected) Arterial Blood 20.3 L HCO3 Arterial Blood -2.9 Base Excess Arterial Blood 94.4 L Oxygen Saturation Manuel Test ACCEPTAB Arterial Blood Left Radial Gas Puncture Site Arterial 0.2 Blood Carboxyhemo globin Arterial Blood 0.2 Methemoglobin Blood Gas A-a O2 91.6 H Differential Oxyhemoglobin 94.0 Percent Blood Gas 37.0 Temperature Blood Gas NASAL CANNULA Modality FiO2 28.0 Blood Gas [place] Notified Whom Blood Gas 12/19/2018 11:43: Notified Time 44 PM White Blood Count 7.6 Red Blood Count 2.47 L Hemoglobin 7.4 L Hematocrit 22.7 L Mean Corpuscular 91.9 Volume Mean Corpuscular 30.0 Hemoglobin Mean Corpuscular 32.6 Hemoglobin Concen t Red Cell 15.2 H Distribution Width Platelet Count 214 Mean Platelet 10.3 Volume Immature 0.500 H Granulocytes % Neutrophils % 84.0 H Lymphocytes % 10.5 L Monocytes % 5.0 Eosinophils % 0.0 Basophils % 0.0 Nucleated Red 0.0 Blood Cells % Immature 0.040 H Granulocytes # Neutrophils # 6.3 Lymphocytes # 0.8 Monocytes # 0.4 Eosinophils # 0.0 Basophils # 0.0 Nucleated Red 0.0 Blood Cells # Sodium Level 143 Potassium Level 4.3 Chloride Level 110 Carbon Dioxide 22 Level Anion Gap 11 Blood Urea 64 H Nitrogen Creatinine 1.63 H Est Glomerular Filtrat Rate mL/min Glucose Level 120 # Calcium Level 8.1 L Phosphorus Level 3.7 Test 12/20/18 08:39 12/20/18 12:07 Bedside Glucose 126 145 Medications Medications Current Medications Allopurinol (Zyloprim) 100 mg BID PO Last administered on 12/20/18 08:41; Admin Dose 100 MG; Start 12/16/18 at 09:00 Atorvastatin Calcium (Lipitor) 40 mg QHS PO Last administered on 12/19/18 20:59; Admin Dose 40 MG; Start 12/16/18 at 21:00 Latanoprost (Xalatan) 1 drop HS BOTH EYES ; Start 12/16/18 at 02:00 Bisacodyl (Dulcolax) 10 mg BID PRN PO CONSTIPATION Last administered on 12/17/18 17:12; Admin Dose 10 MG; Start 12/16/18 at 00:00 Famotidine (Pepcid) 20 mg DAILY PO Last administered on 12/20/18 08:43; Admin Dose 20 MG; Start 12/16/18 at 09:00 Ferrous Sulfate (Ferrous Sulfate (Ec)) 325 mg BID PO Last administered on 12/20/18 08:42; Admin Dose 325 MG; Start 12/16/18 at 09:00 Folic Acid (Folic Acid) 1 mg DAILY PO Last administered on 12/20/18 08:42; Admin Dose 1 MG; Start 12/16/18 at 09:00 Levothyroxine Sodium (Synthroid) 125 mcg BEFORE BREAKFAST PO Last administered on 12/20/18 06:58; Admin Dose 125 MCG; Start 12/16/18 at 07:00 Nifedipine (Procardia Xl) 60 mg DAILY PO Last administered on 12/20/18 08:42; Admin Dose 60 MG; Start 12/16/18 at 09:00 Nitroglycerin (Nitroglycerin (Sl Tab) 0.4 Mg) 0.4 tab [id number] PRN SL CHEST PAIN; Start 12/16/18 at 00:00 Pregabalin (Lyrica) 25 mg TID PO Last administered on 12/20/18 12:07; Admin Dose 25 MG; Start 12/16/18 at 09:00 Terazosin HCl (Hytrin) 10 mg HS PO Last administered on 12/19/18 21:00; Admin Dose 10 MG; Start 12/16/18 at 21:00 Loratadine (Claritin) 10 mg DAILY PO Last administered on 12/20/18 08:43; Admin Dose 10 MG; Start 12/16/18 at 09:00 Cholecalciferol (Vitamin D) 2,000 unit DAILY PO Last administered on 12/20/18 08:42; Admin Dose 2,000 UNIT; Start 12/16/18 at 09:00 Acetaminophen (Tylenol Tab) 650 mg Q6H PRN PO MILD PAIN(1-3)OR ELEVATED TEMP Last administered on 12/16/18at 22:42; Admin Dose 650 MG; Start 12/16/18 at 00:00 Ondansetron HCl (Zofran Inj) 4 mg Q4H PRN IV NAUSEA AND/OR VOMITING; Start 12/16/18 at 00:00 Vancomycin HCl (Vanco Iv Per Pharmacy) VANCOMYCIN PER PHARMACY PER PROTOCOL XX ; Start 12/16/18 at 00:00 Insulin Aspart (Novolog Insulin Pen) NOVOLOG *MILD* ALGORITHM WITH MEALS BEDTIME SC Last administered on 12/20/18at 12:46; Admin Dose 1 UNIT; Start 12/16/18 at 07:55 Levalbuterol (Xopenex Neb) 1.25 mg Q6H RESP THERAPY HHN Last administered on 12/20/18at 13:41; Admin Dose 1.25 MG; Start 12/16/18 at 08:00 Levalbuterol (Xopenex Neb) 1.25 mg Q2H RESP THERAPY PRN HHN Wheezing Last administered on 12/19/18at 23:18; Admin Dose 1.25 MG; Start 12/16/18 at 03:30 Miscellaneous Information (* Miscellaneous Pharmacy Order) Bimatoprost (Lunigan) 0.01%-... ONCE XX ; Start 12/16/18 at 03:30 Miscellaneous Information 1 ea NOTE XX ; Start 12/16/18 at 10:30 Glucose (Glutose) 15 gm Q15M PRN PO DECREASED GLUCOSE; Start 12/16/18 at 10:30 Glucose (Glutose) 22.5 gm Q15M PRN PO DECREASED GLUCOSE; Start 12/16/18 at 10:30 Dextrose (D50w Syringe) 25 ml Q15M PRN IV DECREASED GLUCOSE; Start 12/16/18 at 10:30 Dextrose (D50w Syringe) 50 ml Q15M PRN IV DECREASED GLUCOSE; Start 12/16/18 at 10:30 Glucagon (Glucagen) 1 mg Q15M PRN IM DECREASED GLUCOSE; Start 12/16/18 at 10:30 Glucose (Glutose) 15 gm Q15M PRN BUCCAL DECREASED GLUCOSE; Start 12/16/18 at 10:30 Methylprednisolone Sodium Succinate (Solu-Medrol) 40 mg Q12 IV Last administered on 12/20/18 08:40; Admin Dose 40 MG; Start 12/16/18 at 10:30 Levofloxacin/ Dextrose 100 ml @ 100 mls/hr Q48H IVPB Last administered on 12/20/18 08:43; Admin Dose 100 MLS/HR; Start 12/18/18 at 09:00 Clonidine (Catapres) 0.1 mg Q6H PRN PO SBP>170; Start 12/16/18 at 11:00 Vancomycin HCl 250 ml @ 125 mls/hr Q36H IVPB Last administered on 12/19/18 03:32; Admin Dose 125 MLS/HR; Start 12/17/18 at 16:00 Metoprolol Tartrate (Lopressor) 5 mg Q4H PRN IV HR>110 Hold SBP<100; Start 12/16/18 at 19:30 Hydromorphone HCl (Dilaudid) 0.5 mg Q4H PRN IV SEVERE PAIN LEVEL 7-10 Last administered on 12/18/18 22:50; Admin Dose 0.5 MG; Start 12/17/18 at 07:30 Insulin Glargine (Lantus) 15 units QHS SC Last administered on 12/19/18 21:03; Admin Dose 15 UNITS; Start 12/17/18 at 21:00 Diagnostic Test (Pha) (Accu-Chek) 1 ea 02 XX Last administered on 12/19/18 01:24; Admin Dose 1 EA; Start 12/18/18 at 02:00 Polyethylene Glycol (Miralax) 17 gm DAILY PRN PO CONSTIPATION Last administered on 12/17/18 20:23; Admin Dose 17 GM; Start 12/17/18 at 13:30 Insulin Aspart (Novolog Insulin Pen) 5 unit WITH MEALS SC Last administered on 12/20/18 12:45; Admin Dose 5 UNIT; Start 12/18/18 at 17:55 Metoprolol Tartrate (Lopressor) 50 mg BID PO Last administered on 12/20/18 08:42; Admin Dose 50 MG; Start 12/18/18 at 21:00 Apixaban (Eliquis) 2.5 mg BID PO Last administered on 12/20/18at 08:43; Admin Dose 2.5 MG; Start 12/19/18 at 09:00 Pantoprazole (Protonix Tab) 40 mg DAILY@06 PO ; Start 12/21/18 at 06:00 Hydralazine HCl (Apresoline) 10 mg TID PO Last administered on 12/20/18at 13:32; Admin Dose 10 MG; Start 12/20/18 at 13:00 MARJORIE JAIN Dec 20, 2018 15:43
[2018-12-20] MEDS ORDERED: APIX5TAB PO (15:55)
[2018-12-20] MEDS ORDERED: MED4DP PO (15:58)
[2018-12-20] MEDS: LATANOPROST 0.005% 2.5 ML OPH BOTH EYES SCH (21:21)
[2018-12-20] MEDS: TERAZOSIN 5 MG CAP PO SCH (21:24)
[2018-12-20] MEDS: INSULIN GLARGINE [LANTus] (100 UNITS/ML) SYG SC SCH (21:26)
[2018-12-20] MEDS: ATORVASTATIN 40 MG TAB PO SCH (21:28)
[2018-12-20] MEDS: ACETAMINOPHEN 325 MG TAB PO PRN (23:34)
[2018-12-20] MEDS: LEVALBUTEROL (NEB) 1.25 MG/0.5 ML AMP HHN PRN (23:46)
[2018-12-21] VITALS (12 sets, daily range): BP systolic 137–150; BP diastolic 60–87; PULSE 58–77; RESP 18–21
[2018-12-21] MEDS ORDERED: FUROSEMIDE 20 MG INJ IV ONE (01:30)
[2018-12-21] MEDS: LEVALBUTEROL (NEB) 1.25 MG/0.5 ML AMP HHN SCH ×4 (01:32→19:37)
[2018-12-21] MEDS: ACCU-CHEK XX SCH (02:00)
[2018-12-21] MEDS: LEVOTHYROXINE 125 MCG TAB PO SCH (06:46)
[2018-12-21] MEDS: PANTOPRAZOLE (EC) 40 MG TAB PO SCH (06:46)
[2018-12-21] MEDS: METHYLPREDNISOLONE 40 MG INJ IV SCH ×2 (09:24→20:44)
[2018-12-21] MEDS: FAMOTIDINE 20 MG TAB PO SCH (09:24)
[2018-12-21] MEDS: LORATADINE 10 MG TAB PO SCH (09:24)
[2018-12-21] MEDS: ALLOPURINOL 100 MG TAB PO SCH ×2 (09:24→20:45)
[2018-12-21] MEDS: FERROUS SULFATE (EC) 325 MG TAB PO SCH ×2 (09:24→20:44)
[2018-12-21] MEDS: FOLIC ACID 1 MG TAB PO SCH (09:24)
[2018-12-21] MEDS: CHOLECALCIFEROL 2,000 UNIT CAP PO SCH (09:25)
[2018-12-21] MEDS: APIXABAN 5 MG TABLET PO SCH ×2 (09:25→20:48)
[2018-12-21] MEDS: NIFEdipine (XL) 60 MG TAB PO SCH (09:26)
[2018-12-21] MEDS: METOPROLOL 50 MG TAB PO SCH ×2 (09:26→20:46)
[2018-12-21] MEDS: PREGABALIN 25 MG CAP PO SCH ×3 (09:42→20:45)
[2018-12-21] MEDS: INSULIN ASPART [NOVOLOG] 3 ML PEN SC SCH ×7 (09:49→20:46)
--- NOTE | 2018-12-21 09:51 | CONS ---
Assessment/Plan Assessment/Plan Assessment/Plan (Daily) Chest x-ray was reviewed from yesterday which is showing background of interstitial changes. Assessment and recommendations; 1. Patient admitted with shortness of breath due to right upper lobe community acquired pneumonia with significant clinical and radiological improvement. 2. Mild chronic renal insufficiency. 3. Prior CABG. 4. Hypertension. 5. Hypothyroidism. 6. Anemia. 7. Severe rheumatoid arthritis with possibly pulmonary involvement. Patient off Remicade for the last 1 year. Continue current supportive care. Home oxygen is being arranged. 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 Consultation Date/Type/Reason Admit Date/Time Dec 15, 2018 at 18:41 Initial Consult Date 12/16/18 Type of Consult Pulmonary Pulmonary consult requested for evaluation of shortness of breath. Patient is a pleasant 88-year-old gentleman who came into the hospital yesterday with a few hours history of shortness of breath. Upon evaluation chest x-ray was done which is showing changes consistent with mild CHF. Patient also been complaining of cough wheezing as well as scant sputum production. Also had low- grade fever yesterday. Denies any abdominal pain, nausea vomiting, any high- grade fever body aches or myalgias. Past medical history; 1. Mild chronic renal insufficiency. 2. History of prior CABG. 3. 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 4. History of hypertension and diabetes. 5. History of gout and hypothyroidism. Medications; reviewed. Allergies; as outlined above. Social history; patient has been a cigar smoker. Family history; he is a , lives with his daughter. 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 Review of systems; denies any headache, sinus symptoms. Any seizures. Denies any dysphagia, sore throat, chest pain, angina, complains of cough and wheezing. Complains of scant sputum production. Denies any hemoptysis. Denies any abdominal pain, nausea vomiting. Any GI or urinary symptoms. Complains of very mild orthopnea. Denies any edema. Any weight change. General exam; elderly male, awake alert, currently no distress. Requesting Provider: IVAN AKHTAR MD Date/Time of Note DATE: 12/21/18 TIME: 09:48 24 HR Interval Summary Free Text/Dictation Patient's condition is stable. Reports significant improvement in shortness of breath. Complains of very scant chest congestion and coughing. General exam; elderly male, awake and alert. Currently no distress. Exam/Review of Systems Exam Vitals Vital Signs Date Temp Pulse Resp B/P (MAP) Pulse Ox O2 O2 Flow FiO2 Time Delivery Rate 12/21/18 98.0 76 19 137/63 100 07:34 (87) 12/21/18 Nasal 3.0 02:00 Cannula 12/20/18 21 13:50 Intake and Output 12/20/18 12/20/18 12/21/18 1515:00 23:00 07:00 IntakeIntake Total 600 ml 500 ml OutputOutput Total 800 ml 1400 ml BalanceBalance -200 ml -900 ml Exam H EENT exam; supple neck, no JVD. No lymphadenopathy. Midline trachea. No thyromegaly. Patient has a multiple carious teeth. Chest exam; diminished breath sounds bilaterally. S1-S2 audible, no murmurs. There is a well-healed sternal scar. Abdomen exam; soft, no organomegaly. Nontender. Bowel sounds audible. Extremity exam; no peripheral edema. Patient does have significant changes of rheumatoid arthritis. [employer] exam; no focal deficit. Results Result Diagram: 12/21/18 0553 12/21/18 0553 Results 24hrs Laboratory Tests Test 12/20/18 12:07 12/20/18 17:03 12/20/18 21:20 12/21/18 02:31 Bedside Glucose 145 100 106 153 Test 12/21/18 05:53 12/21/18 08:39 White Blood Count 9.0 Red Blood Count 2.51 L Hemoglobin 7.5 L Hematocrit 22.9 L Mean Corpuscular 91.2 Volume Mean Corpuscular 29.9 Hemoglobin Mean Corpuscular 32.8 Hemoglobin Concent Red Cell 15.2 H Distribution Width Platelet Count 225 Mean Platelet Volume 10.1 Immature 0.700 H Granulocytes % Neutrophils % 85.3 H Lymphocytes % 8.5 L Monocytes % 5.5 Eosinophils % 0.0 Basophils % 0.0 Nucleated Red Blood 0.2 H Cells % Immature 0.060 H Granulocytes # Neutrophils # 7.7 H Lymphocytes # 0.8 Monocytes # 0.5 Eosinophils # 0.0 Basophils # 0.0 Nucleated Red Blood 0.0 Cells # Sodium Level 142 Potassium Level 4.2 Chloride Level 109 Carbon Dioxide Level 21 Anion Gap 12 Blood Urea Nitrogen 63 H Creatinine 1.54 H Est Glomerular Filtrat Rate mL/min Glucose Level 140 Calcium Level 8.0 L Bedside Glucose 148 Medications Medication Current Medications Allopurinol (Zyloprim) 100 mg BID PO Last administered on 12/21/18 09:24; Admin Dose 100 MG; Start 12/16/18 at 09:00 Atorvastatin Calcium (Lipitor) 40 mg QHS PO Last administered on 12/20/18 21:28; Admin Dose 40 MG; Start 12/16/18 at 21:00 Latanoprost (Xalatan) 1 drop HS BOTH EYES Last administered on 12/20/18 21:21; Admin Dose 1 DROP; Start 12/16/18 at 02:00 Bisacodyl (Dulcolax) 10 mg BID PRN PO CONSTIPATION Last administered on 12/17/18 17:12; Admin Dose 10 MG; Start 12/16/18 at 00:00 Famotidine (Pepcid) 20 mg DAILY PO Last administered on 12/21/18 09:24; Admin Dose 20 MG; Start 12/16/18 at 09:00 Ferrous Sulfate (Ferrous Sulfate (Ec)) 325 mg BID PO Last administered on 12/21/18 09:24; Admin Dose 325 MG; Start 12/16/18 at 09:00 Folic Acid (Folic Acid) 1 mg DAILY PO Last administered on 12/21/18 09:24; Admin Dose 1 MG; Start 12/16/18 at 09:00 Levothyroxine Sodium (Synthroid) 125 mcg BEFORE BREAKFAST PO Last administered on 12/21/18 06:46; Admin Dose 125 MCG; Start 12/16/18 at 07:00 Nifedipine (Procardia Xl) 60 mg DAILY PO Last administered on 12/21/18 09:26; Admin Dose 60 MG; Start 12/16/18 at 09:00 Nitroglycerin (Nitroglycerin (Sl Tab) 0.4 Mg) 0.4 tab [id number] PRN SL CHEST PAIN; Start 12/16/18 at 00:00 Pregabalin (Lyrica) 25 mg TID PO Last administered on 12/21/18 09:42; Admin Dose 25 MG; Start 12/16/18 at 09:00 Terazosin HCl (Hytrin) 10 mg HS PO Last administered on 12/20/18 21:24; Admin Dose 10 MG; Start 12/16/18 at 21:00 Loratadine (Claritin) 10 mg DAILY PO Last administered on 12/21/18 09:24; Admin Dose 10 MG; Start 12/16/18 at 09:00 Cholecalciferol (Vitamin D) 2,000 unit DAILY PO Last administered on 12/21/18 09:25; Admin Dose 2,000 UNIT; Start 12/16/18 at 09:00 Acetaminophen (Tylenol Tab) 650 mg Q6H PRN PO MILD PAIN(1-3)OR ELEVATED TEMP Last administered on 12/20/18 23:34; Admin Dose 650 MG; Start 12/16/18 at 00:00 Ondansetron HCl (Zofran Inj) 4 mg Q4H PRN IV NAUSEA AND/OR VOMITING Last administered on 12/20/18 23:34; Admin Dose 4 MG; Start 12/16/18 at 00:00 Insulin Aspart (Novolog Insulin Pen) NOVOLOG *MILD* ALGORITHM WITH MEALS BEDTIME SC Last administered on 12/20/18 12:46; Admin Dose 1 UNIT; Start 12/16/18 at 07:55 Levalbuterol (Xopenex Neb) 1.25 mg Q6H RESP THERAPY HHN Last administered on 12/21/18 01:32; Admin Dose 1.25 MG; Start 12/16/18 at 08:00 Levalbuterol (Xopenex Neb) 1.25 mg Q2H RESP THERAPY PRN HHN Wheezing Last administered on 12/20/18 23:46; Admin Dose 1.25 MG; Start 12/16/18 at 03:30 Miscellaneous Information 1 ea NOTE XX ; Start 12/16/18 at 10:30 Glucose (Glutose) 15 gm Q15M PRN PO DECREASED GLUCOSE; Start 12/16/18 at 10:30 Glucose (Glutose) 22.5 gm Q15M PRN PO DECREASED GLUCOSE; Start 12/16/18 at 10:30 Dextrose (D50w Syringe) 25 ml Q15M PRN IV DECREASED GLUCOSE; Start 12/16/18 at 10:30 Dextrose (D50w Syringe) 50 ml Q15M PRN IV DECREASED GLUCOSE; Start 12/16/18 at 10:30 Glucagon (Glucagen) 1 mg Q15M PRN IM DECREASED GLUCOSE; Start 12/16/18 at 10:30 Glucose (Glutose) 15 gm Q15M PRN BUCCAL DECREASED GLUCOSE; Start 12/16/18 at 10:30 Methylprednisolone Sodium Succinate (Solu-Medrol) 40 mg Q12 IV Last administered on 12/21/18 09:24; Admin Dose 40 MG; Start 12/16/18 at 10:30 Levofloxacin/ Dextrose 100 ml @ 100 mls/hr Q48H IVPB Last administered on 12/20/18 08:43; Admin Dose 100 MLS/HR; Start 12/18/18 at 09:00 Clonidine (Catapres) 0.1 mg Q6H PRN PO SBP>170; Start 12/16/18 at 11:00 Metoprolol Tartrate (Lopressor) 5 mg Q4H PRN IV HR>110 Hold SBP<100; Start 12/16/18 at 19:30 Hydromorphone HCl (Dilaudid) 0.5 mg Q4H PRN IV SEVERE PAIN LEVEL 7-10 Last administered on 12/18/18 22:50; Admin Dose 0.5 MG; Start 12/17/18 at 07:30 Insulin Glargine (Lantus) 15 units QHS SC Last administered on 12/20/18 21:26; Admin Dose 15 UNITS; Start 12/17/18 at 21:00 Diagnostic Test (Pha) (Accu-Chek) 1 ea 02 XX Last administered on 12/19/18 01:24; Admin Dose 1 EA; Start 12/18/18 at 02:00 Polyethylene Glycol (Miralax) 17 gm DAILY PRN PO CONSTIPATION Last administered on 12/17/18 20:23; Admin Dose 17 GM; Start 12/17/18 at 13:30 Insulin Aspart (Novolog Insulin Pen) 5 unit WITH MEALS SC Last administered on 12/20/18 17:38; Admin Dose 5 UNIT; Start 12/18/18 at 17:55 Metoprolol Tartrate (Lopressor) 50 mg BID PO Last administered on 12/21/18 09 :26; Admin Dose 50 MG; Start 12/18/18 at 21:00 Apixaban (Eliquis) 2.5 mg BID PO Last administered on 12/21/18 09:25; Admin Dose 2.5 MG; Start 12/19/18 at 09:00 Pantoprazole (Protonix Tab) 40 mg DAILY@06 PO Last administered on 12/21/18at 06:46; Admin Dose 40 MG; Start 12/21/18 at 06:00 Hydralazine HCl (Apresoline) 10 mg TID PO Last administered on 12/21/18at 09:26; Admin Dose 10 MG; Start 12/20/18 at 13:00 LOVE HAWK Dec 21, 2018 09:51
--- NOTE | 2018-12-21 11:44 | PN ---
Date/Time of Note Date/Time of Note DATE: 12/21/18 TIME: 11:32 Assessment/Plan VTE Prophylaxis Risk score (from Ns)>0 risk: 8 SCD applied (from [facility]): Yes SCD contraindicated: other Pharmacological prophylaxis: apixaban Lines/Catheters IV Catheter Type (from [facility]): Saline Lock Urinary Cath still in place: No Assessment/Plan Hospital Course 1. Shortness of breath, cough associated with fevers. On admission, the chest x-ray showed no infiltrates; however few hours later after the patient received fluids, the patient's chest x-ray was much worse and was short of breath. This is likely complication of underlying pneumonia with fluid overload. 2. Fevers, likely secondary to pneumonia.more On the right side, also has UTI final urine culture +mixed gram +positive organisms 3. Acute on chronic renal failure likely secondary to sepsis, systemic inflamm atory response syndrome improving, he has likely elevated BUN to creatinine ratio likely due to use of steroids 4. Hypertension. 5. Hyperlipidemia. 6. Leukocytosis with systemic inflammatory response syndrome. 7. Chronic anemia 8. Hyperlipidemia. 9. History of rheumatoid arthritis. 10. Diabetes type 2, uncontrolled 11. Hypothyroidism. 12. Peripheral vascular disease, on Plavix 13 UTI 14 Chronic A. FIB Assessment/Plan -pt has oxygen at other state, asked to arrange home oxygen -dc planning -dr Alatorre will se pt today to determine Dc -today sat. 100 percent on room air -spoke to dr Allen, pulmonology, he ok DC Result Diagram: 12/21/18 0553 12/21/18 0553 Results 24hrs Laboratory Tests Test 12/20/18 12:07 12/20/18 17:03 12/20/18 21:20 12/21/18 02:31 Bedside Glucose 145 100 106 153 Test 12/21/18 05:53 12/21/18 08:39 White Blood Count 9.0 Red Blood Count 2.51 L Hemoglobin 7.5 L Hematocrit 22.9 L Mean Corpuscular 91.2 Volume Mean Corpuscular 29.9 Hemoglobin Mean Corpuscular 32.8 Hemoglobin Concent Red Cell 15.2 H Distribution Width Platelet Count 225 Mean Platelet Volume 10.1 Immature 0.700 H Granulocytes % Neutrophils % 85.3 H Lymphocytes % 8.5 L Monocytes % 5.5 Eosinophils % 0.0 Basophils % 0.0 Nucleated Red Blood 0.2 H Cells % Immature 0.060 H Granulocytes # Neutrophils # 7.7 H Lymphocytes # 0.8 Monocytes # 0.5 Eosinophils # 0.0 Basophils # 0.0 Nucleated Red Blood 0.0 Cells # Sodium Level 142 Potassium Level 4.2 Chloride Level 109 Carbon Dioxide Level 21 Anion Gap 12 Blood Urea Nitrogen 63 H Creatinine 1.54 H Est Glomerular Filtrat Rate mL/min Glucose Level 140 Calcium Level 8.0 L Bedside Glucose 148 Subjective 24 Hr Interval Summary Respiratory: shortness of breath Exam/Review of Systems Exam Vitals Vital Signs Date Temp Pulse Resp B/P (MAP) Pulse Ox O2 O2 Flow FiO2 Time Delivery Rate 12/21/18 71 10:16 12/21/18 98.0 19 137/63 100 07:34 (87) 12/21/18 Nasal 3.0 02:00 Cannula 12/20/18 21 13:50 Intake and Output 12/20/18 12/20/18 12/21/18 1515:00 23:00 07:00 IntakeIntake Total 600 ml 500 ml OutputOutput Total 800 ml 1400 ml BalanceBalance -200 ml -900 ml Constitutional: alert, oriented ENMT: nl external ears & nose Neck: supple Respiratory: diminished breath sounds Cardiovascular: regular rate and rhythm Gastrointestinal: soft Extremities: pitting pedal edema; No normal pulses, No calf tenderness, No cyanosis, No clubbing, No edema, No palpable cord, No tenderness, No other Results Results 24hrs Laboratory Tests Test 12/20/18 12:07 12/20/18 17:03 12/20/18 21:20 12/21/18 02:31 Bedside Glucose 145 100 106 153 Test 12/21/18 05:53 12/21/18 08:39 White Blood Count 9.0 Red Blood Count 2.51 L Hemoglobin 7.5 L Hematocrit 22.9 L Mean Corpuscular 91.2 Volume Mean Corpuscular 29.9 Hemoglobin Mean Corpuscular 32.8 Hemoglobin Concent Red Cell 15.2 H Distribution Width Platelet Count 225 Mean Platelet Volume 10.1 Immature 0.700 H Granulocytes % Neutrophils % 85.3 H Lymphocytes % 8.5 L Monocytes % 5.5 Eosinophils % 0.0 Basophils % 0.0 Nucleated Red Blood 0.2 H Cells % Immature 0.060 H Granulocytes # Neutrophils # 7.7 H Lymphocytes # 0.8 Monocytes # 0.5 Eosinophils # 0.0 Basophils # 0.0 Nucleated Red Blood 0.0 Cells # Sodium Level 142 Potassium Level 4.2 Chloride Level 109 Carbon Dioxide Level 21 Anion Gap 12 Blood Urea Nitrogen 63 H Creatinine 1.54 H Est Glomerular Filtrat Rate mL/min Glucose Level 140 Calcium Level 8.0 L Bedside Glucose 148 Medications Medication Current Medications Allopurinol (Zyloprim) 100 mg BID PO Last administered on 12/21/18 09:24; Admin Dose 100 MG; Start 12/16/18 at 09:00 Atorvastatin Calcium (Lipitor) 40 mg QHS PO Last administered on 12/20/18 21:28; Admin Dose 40 MG; Start 12/16/18 at 21:00 Latanoprost (Xalatan) 1 drop HS BOTH EYES Last administered on 12/20/18 21:21; Admin Dose 1 DROP; Start 12/16/18 at 02:00 Bisacodyl (Dulcolax) 10 mg BID PRN PO CONSTIPATION Last administered on 17:12; Admin Dose 10 MG; Start 12/16/18 at 00:00 Famotidine (Pepcid) 20 mg DAILY PO Last administered on 12/21/18 09:24; Admin Dose 20 MG; Start 12/16/18 at 09:00 Ferrous Sulfate (Ferrous Sulfate (Ec)) 325 mg BID PO Last administered on 12/21/18 09:24; Admin Dose 325 MG; Start 12/16/18 at 09:00 Folic Acid (Folic Acid) 1 mg DAILY PO Last administered on 12/21/18 09:24; Admin Dose 1 MG; Start 12/16/18 at 09:00 Levothyroxine Sodium (Synthroid) 125 mcg BEFORE BREAKFAST PO Last administered on 12/21/18 06:46; Admin Dose 125 MCG; Start 12/16/18 at 07:00 Nifedipine (Procardia Xl) 60 mg DAILY PO Last administered on 12/21/18 09:26; Admin Dose 60 MG; Start 12/16/18 at 09:00 Nitroglycerin (Nitroglycerin (Sl Tab) 0.4 Mg) 0.4 tab [id number] PRN SL CHEST PAIN; Start 12/16/18 at 00:00 Pregabalin (Lyrica) 25 mg TID PO Last administered on 12/21/18 09:42; Admin Dose 25 MG; Start 12/16/18 at 09:00 Terazosin HCl (Hytrin) 10 mg HS PO Last administered on 12/20/18 21:24; Admin Dose 10 MG; Start 12/16/18 at 21:00 Loratadine (Claritin) 10 mg DAILY PO Last administered on 12/21/18 09:24; Admin Dose 10 MG; Start 12/16/18 at 09:00 Cholecalciferol (Vitamin D) 2,000 unit DAILY PO Last administered on 12/21/18 09:25; Admin Dose 2,000 UNIT; Start 12/16/18 at 09:00 Acetaminophen (Tylenol Tab) 650 mg Q6H PRN PO MILD PAIN(1-3)OR ELEVATED TEMP Last administered on 12/20/18 23:34; Admin Dose 650 MG; Start 12/16/18 at 00:00 Ondansetron HCl (Zofran Inj) 4 mg Q4H PRN IV NAUSEA AND/OR VOMITING Last administered on 12/20/18 23:34; Admin Dose 4 MG; Start 12/16/18 at 00:00 Insulin Aspart (Novolog Insulin Pen) NOVOLOG *MILD* ALGORITHM WITH MEALS BEDTIME SC Last administered on 12/21/18 09:50; Admin Dose 1 UNIT; Start 12/16/18 at 07:55 Levalbuterol (Xopenex Neb) 1.25 mg Q6H RESP THERAPY HHN Last administered on 12/21/18 10:33; Admin Dose 1.25 MG; Start 12/16/18 at 08:00 Levalbuterol (Xopenex Neb) 1.25 mg Q2H RESP THERAPY PRN HHN Wheezing Last administered on 12/20/18 23:46; Admin Dose 1.25 MG; Start 12/16/18 at 03:30 Miscellaneous Information 1 ea NOTE XX ; Start 12/16/18 at 10:30 Glucose (Glutose) 15 gm Q15M PRN PO DECREASED GLUCOSE; Start 12/16/18 at 10:30 Glucose (Glutose) 22.5 gm Q15M PRN PO DECREASED GLUCOSE; Start 12/16/18 at 10:30 Dextrose (D50w Syringe) 25 ml Q15M PRN IV DECREASED GLUCOSE; Start 12/16/18 at 10:30 Dextrose (D50w Syringe) 50 ml Q15M PRN IV DECREASED GLUCOSE; Start 12/16/18 at 10:30 Glucagon (Glucagen) 1 mg Q15M PRN IM DECREASED GLUCOSE; Start 12/16/18 at 10:30 Glucose (Glutose) 15 gm Q15M PRN BUCCAL DECREASED GLUCOSE; Start 12/16/18 at 10:30 Methylprednisolone Sodium Succinate (Solu-Medrol) 40 mg Q12 IV Last administered on 12/21/18 09:24; Admin Dose 40 MG; Start 12/16/18 at 10:30 Levofloxacin/ Dextrose 100 ml @ 100 mls/hr Q48H IVPB Last administered on 12/20/18 08:43; Admin Dose 100 MLS/HR; Start 12/18/18 at 09:00 Clonidine (Catapres) 0.1 mg Q6H PRN PO SBP>170; Start 12/16/18 at 11:00 Metoprolol Tartrate (Lopressor) 5 mg Q4H PRN IV HR>110 Hold SBP<100; Start 12/16/18 at 19:30 Hydromorphone HCl (Dilaudid) 0.5 mg Q4H PRN IV SEVERE PAIN LEVEL 7-10 Last administered on 12/18/18 22:50; Admin Dose 0.5 MG; Start 12/17/18 at 07:30 Insulin Glargine (Lantus) 15 units QHS SC Last administered on 12/20/18 21:26; Admin Dose 15 UNITS; Start 12/17/18 at 21:00 Diagnostic Test (Pha) (Accu-Chek) 1 ea 02 XX Last administered on 12/19/18 01:24; Admin Dose 1 EA; Start 12/18/18 at 02:00 Polyethylene Glycol (Miralax) 17 gm DAILY PRN PO CONSTIPATION Last administered on 12/17/18 20:23; Admin Dose 17 GM; Start 12/17/18 at 13:30 Insulin Aspart (Novolog Insulin Pen) 5 unit WITH MEALS SC Last administered on 12/21/18 09:49; Admin Dose 5 UNIT; Start 12/18/18 at 17:55 Metoprolol Tartrate (Lopressor) 50 mg BID PO Last administered on 12/21/18 09:26; Admin Dose 50 MG; Start 12/18/18 at 21:00 Apixaban (Eliquis) 2.5 mg BID PO Last administered on 12/21/18at 09:25; Admin Dose 2.5 MG; Start 12/19/18 at 09:00 Pantoprazole (Protonix Tab) 40 mg DAILY@06 PO Last administered on 12/21/18at 06:46; Admin Dose 40 MG; Start 12/21/18 at 06:00 Hydralazine HCl (Apresoline) 10 mg TID PO Last administered on 12/21/18at 09:26; Admin Dose 10 MG; Start 12/20/18 at 13:00 COOPER CRAO Dec 21, 2018 11:42
--- NOTE | 2018-12-21 12:01 | CONS ---
Consult Date/Type/Reason Admit Date/Time Dec 15, 2018 at 18:41 Initial Consult Date 12/16/18 Requesting Provider: IVAN AKHTAR MD Date/Time of Note DATE: 12/21/18 TIME: 11:58 Subjective NO acute events - pt comfortable - no CP now - will monitor clinically now. Rate controlled. ROS: No fever, no chills, no nausea, no vomiting, no diarrhea/constipation No recent weight changes No chest pain, no PND, no orthopnea - mild SOB No dizziness, blurred vision No thirst, no heat or cold intolerance Objective Vitals Vital Signs Date Temp Pulse Resp B/P (MAP) Pulse Ox O2 O2 Flow FiO2 Time Delivery Rate 12/21/18 98.0 62 21 143/64 100 11:41 (90) 12/21/18 Nasal 3.0 02:00 Cannula 12/20/18 21 13:50 Intake and Output 12/20/18 12/20/18 12/21/18 1414:59 22:59 06:59 IntakeIntake Total 400 ml 600 ml 500 ml OutputOutput Total 500 ml 800 ml 1400 ml BalanceBalance -100 ml -200 ml -900 ml Exam General: WN/WD/NAD, AOx 2 HEENT: Unicetric/atraumatic/EOMI (follow commands) NECK: JVD elevated, no thyromegaly Lymph: no lymphadenopathy HEART: irreg irregular with no S3, II/ systolic murmur at apex LUNGS: Coarse sounds ABD: soft, NT, ND, +BS : Intact Neuro: non focal SKIN: chronic changes EXT: trace edema Results/Medications Result Diagram: 12/21/18 0553 12/21/18 0553 Results 24 hrs Laboratory Tests Test 12/20/18 12:07 12/20/18 17:03 12/20/18 21:20 12/21/18 02:31 Bedside Glucose 145 100 106 153 Test 12/21/18 05:53 12/21/18 08:39 White Blood Count 9.0 Red Blood Count 2.51 L Hemoglobin 7.5 L Hematocrit 22.9 L Mean Corpuscular 91.2 Volume Mean Corpuscular 29.9 Hemoglobin Mean Corpuscular 32.8 Hemoglobin Concent Red Cell 15.2 H Distribution Width Platelet Count 225 Mean Platelet Volume 10.1 Immature 0.700 H Granulocytes % Neutrophils % 85.3 H Lymphocytes % 8.5 L Monocytes % 5.5 Eosinophils % 0.0 Basophils % 0.0 Nucleated Red Blood 0.2 H Cells % Immature 0.060 H Granulocytes # Neutrophils # 7.7 H Lymphocytes # 0.8 Monocytes # 0.5 Eosinophils # 0.0 Basophils # 0.0 Nucleated Red Blood 0.0 Cells # Sodium Level 142 Potassium Level 4.2 Chloride Level 109 Carbon Dioxide Level 21 Anion Gap 12 Blood Urea Nitrogen 63 H Creatinine 1.54 H Est Glomerular Filtrat Rate mL/min Glucose Level 140 Calcium Level 8.0 L Bedside Glucose 148 Home Meds Active Scripts Methylprednisolone* (Medrol* DOSE PACK) 4 Mg/Dose-Pack Tab.ds.pk, 4 MG PO . DIRECTED for 7 Days, PACKET Prov:IVAN AKHTAR MD 12/20/18 Apixaban* (Eliquis*) 5 Mg Tablet, 2.5 MG PO BID for 30 Days, TAB Prov:IVAN AKHTAR MD 12/20/18 Doxycycline Monohydrate (Doxycycline Monohydrate) 100 Mg Capsule, 100 MG PO BID for 5 Days, CAP Prov:COOPER CARO 12/20/18 Metoprolol Tartrate* (Lopressor*) 50 Mg Tab, 50 MG PO BID for 30 Days, TAB Prov:COOPER CARO 12/20/18 Levofloxacin* (Levaquin*) 500 Mg Tablet, 500 MG PO DAILY for 5 Days, TAB Prov:COOPER CARO 12/20/18 Reported Medications Polyethylene Glycol* (Miralax*) 17 Gm Powd.pack, 17 GM PO DAILY, #30 PACKET 12/15/18 Nifedipine* (Nifedipine ER*) 60 Mg Tablet.sa, 60 MG PO DAILY, TAB.SA 12/15/18 Bisacodyl* (Bisacodyl*) 5 Mg Tablet.dr, 10 MG PO BID PRN for CONSTIPATION, TAB 12/15/18 Pregabalin* (Lyrica*) 25 Mg Capsule, 25 MG PO TID, CAP 12/15/18 Bimatoprost* (Lumigan*) 0.01%-5 Ml Opht Drops, 1 DROP BOTH EYES HS, EA 03/02/18 Cetirizine Hcl* (Cetirizine Hcl*) 10 Mg Tablet, 10 MG PO DAILY, #30 TAB 03/02/18 Insulin Glargine* (Lantus*) 100 Unit/Ml Soln, 10 UNIT SC QHS, #1 VIAL 03/02/18 Ergocalciferol (Vitamin D2) (VITAMIN D2) 2,000 Unit Tablet, 2000 UNIT PO DAILY, TAB 03/02/18 Famotidine* (Famotidine*) 20 Mg Tablet, 20 MG PO DAILY, #30 TAB 03/02/18 Ferrous Sulfate* (Ferrous Sulfate*) 325 Mg Tabec, 325 MG PO BID, TAB 03/02/18 Nitroglycerin* (Nitrostat*) 0.4 Mg Tab.subl, 0.4 MG SL Q5MIN PRN for CHEST PAIN, BOTTLE 03/02/18 Terazosin Hcl* (Terazosin Hcl*) 10 Mg Capsule, 10 MG PO HS, CAP 03/02/18 Levothyroxine Sodium* (Levoxyl*) 125 Mcg Tablet, 125 MCG PO BEFORE BREAKFAST, #30 TAB 03/02/18 Allopurinol* (Allopurinol*) 100 Mg Tablet, 100 MG PO BID, TAB 03/02/18 Atorvastatin* (Atorvastatin*) 40 Mg Tablet, 40 MG PO QHS, #30 TAB 03/02/18 Folic Acid* (Folic Acid*) 1 Mg Tablet, 1 MG PO DAILY, TAB 03/02/18 Discontinued Reported Medications Metoprolol Tartrate* (Lopressor*) 25 Mg Tablet, 25 MG PO BID, #60 TAB 12/15/18 Aspirin (Low Dose Aspirin) 81 Mg Tablet.dr, 81 MG PO DAILY, #30 TAB 03/02/18 Clopidogrel Bisulfate (Clopidogrel) 75 Mg Tablet, 75 MG PO DAILY, #30 TAB 03/02/18 Pregabalin* (Lyrica*) 50 Mg Capsule, 50 MG PO BID, CAP 03/02/18 Discontinued Scripts Megestrol Acetate* (Megace*) 40 Mg Tab, 80 MG PO BID for 10 Days, #20 TAB Prov:CAMPOS CESAR MD 06/18/18 Bisacodyl* (Bisacodyl*) 5 Mg Tablet.dr, 10 MG PO BID PRN for CONSTIPATION for 28 Days Prov:CAMPOS CESAR MD 06/18/18 Docusate Sodium (Dok) 100 Mg Capsule, 100 MG PO TID for 28 Days, #30 CAP Prov:CAMPOS CESAR MD 06/18/18 [Polyethylene Glycol] 17 GM/PKT LIQ No Conflict Check, 17 GM PO DAILY for 28 Days, #30 Prov:CAMPOS CESAR MD 06/18/18 Metoprolol Tartrate* (Lopressor*) 25 Mg Tab, 25 MG PO BID for 30 Days, TAB hold if hr<60 and sbp<100 Prov:IVAN AKHTAR MD 03/06/18 Medications Current Medications Allopurinol (Zyloprim) 100 mg BID PO Last administered on 12/21/18 09:24; Admin Dose 100 MG; Start 12/16/18 at 09:00 Atorvastatin Calcium (Lipitor) 40 mg QHS PO Last administered on 12/20/18 21:28; Admin Dose 40 MG; Start 12/16/18 at 21:00 Latanoprost (Xalatan) 1 drop HS BOTH EYES Last administered on 12/20/18 21:21; Admin Dose 1 DROP; Start 12/16/18 at 02:00 Bisacodyl (Dulcolax) 10 mg BID PRN PO CONSTIPATION Last administered on 17:12; Admin Dose 10 MG; Start 12/16/18 at 00:00 Famotidine (Pepcid) 20 mg DAILY PO Last administered on 12/21/18 09:24; Admin Dose 20 MG; Start 12/16/18 at 09:00 Ferrous Sulfate (Ferrous Sulfate (Ec)) 325 mg BID PO Last administered on 12/21/18 09:24; Admin Dose 325 MG; Start 12/16/18 at 09:00 Folic Acid (Folic Acid) 1 mg DAILY PO Last administered on 12/21/18 09:24; Admin Dose 1 MG; Start 12/16/18 at 09:00 Levothyroxine Sodium (Synthroid) 125 mcg BEFORE BREAKFAST PO Last administered on 12/21/18 06:46; Admin Dose 125 MCG; Start 12/16/18 at 07:00 Nifedipine (Procardia Xl) 60 mg DAILY PO Last administered on 12/21/18 09:26; Admin Dose 60 MG; Start 12/16/18 at 09:00 Nitroglycerin (Nitroglycerin (Sl Tab) 0.4 Mg) 0.4 tab [id number] PRN SL CHEST PAIN; Start 12/16/18 at 00:00 Pregabalin (Lyrica) 25 mg TID PO Last administered on 12/21/18 09:42; Admin Dose 25 MG; Start 12/16/18 at 09:00 Terazosin HCl (Hytrin) 10 mg HS PO Last administered on 12/20/18 21:24; Admin Dose 10 MG; Start 12/16/18 at 21:00 Loratadine (Claritin) 10 mg DAILY PO Last administered on 12/21/18 09:24; Admin Dose 10 MG; Start 12/16/18 at 09:00 Cholecalciferol (Vitamin D) 2,000 unit DAILY PO Last administered on 12/21/18 09:25; Admin Dose 2,000 UNIT; Start 12/16/18 at 09:00 Acetaminophen (Tylenol Tab) 650 mg Q6H PRN PO MILD PAIN(1-3)OR ELEVATED TEMP Last administered on 12/20/18 23:34; Admin Dose 650 MG; Start 12/16/18 at 00:00 Ondansetron HCl (Zofran Inj) 4 mg Q4H PRN IV NAUSEA AND/OR VOMITING Last administered on 12/20/18 23:34; Admin Dose 4 MG; Start 12/16/18 at 00:00 Insulin Aspart (Novolog Insulin Pen) NOVOLOG *MILD* ALGORITHM WITH MEALS BEDTIME SC Last administered on 12/21/18 09:50; Admin Dose 1 UNIT; Start 12/16/18 at 07:55 Levalbuterol (Xopenex Neb) 1.25 mg Q6H RESP THERAPY HHN Last administered on 12/21/18 10:33; Admin Dose 1.25 MG; Start 12/16/18 at 08:00 Levalbuterol (Xopenex Neb) 1.25 mg Q2H RESP THERAPY PRN HHN Wheezing Last administered on 12/20/18 23:46; Admin Dose 1.25 MG; Start 12/16/18 at 03:30 Miscellaneous Information 1 ea NOTE XX ; Start 12/16/18 at 10:30 Glucose (Glutose) 15 gm Q15M PRN PO DECREASED GLUCOSE; Start 12/16/18 at 10:30 Glucose (Glutose) 22.5 gm Q15M PRN PO DECREASED GLUCOSE; Start 12/16/18 at 10:30 Dextrose (D50w Syringe) 25 ml Q15M PRN IV DECREASED GLUCOSE; Start 12/16/18 at 10:30 Dextrose (D50w Syringe) 50 ml Q15M PRN IV DECREASED GLUCOSE; Start 12/16/18 at 10:30 Glucagon (Glucagen) 1 mg Q15M PRN IM DECREASED GLUCOSE; Start 12/16/18 at 10:30 Glucose (Glutose) 15 gm Q15M PRN BUCCAL DECREASED GLUCOSE; Start 12/16/18 at 10:30 Methylprednisolone Sodium Succinate (Solu-Medrol) 40 mg Q12 IV Last administered on 12/21/18 09:24; Admin Dose 40 MG; Start 12/16/18 at 10:30 Levofloxacin/ Dextrose 100 ml @ 100 mls/hr Q48H IVPB Last administered on 12/20/18 08:43; Admin Dose 100 MLS/HR; Start 12/18/18 at 09:00 Clonidine (Catapres) 0.1 mg Q6H PRN PO SBP>170; Start 12/16/18 at 11:00 Metoprolol Tartrate (Lopressor) 5 mg Q4H PRN IV HR>110 Hold SBP<100; Start 12/16/18 at 19:30 Hydromorphone HCl (Dilaudid) 0.5 mg Q4H PRN IV SEVERE PAIN LEVEL 7-10 Last administered on 12/18/18at 22:50; Admin Dose 0.5 MG; Start 12/17/18 at 07:30 Insulin Glargine (Lantus) 15 units QHS SC Last administered on 12/20/18 21:26; Admin Dose 15 UNITS; Start 12/17/18 at 21:00 Diagnostic Test (Pha) (Accu-Chek) 1 ea 02 XX Last administered on 12/19/18 01:24; Admin Dose 1 EA; Start 12/18/18 at 02:00 Polyethylene Glycol (Miralax) 17 gm DAILY PRN PO CONSTIPATION Last administered on 12/17/18 20:23; Admin Dose 17 GM; Start 12/17/18 at 13:30 Insulin Aspart (Novolog Insulin Pen) 5 unit WITH MEALS SC Last administered on 12/21/18 09:49; Admin Dose 5 UNIT; Start 12/18/18 at 17:55 Metoprolol Tartrate (Lopressor) 50 mg BID PO Last administered on 12/21/18 09:26; Admin Dose 50 MG; Start 12/18/18 at 21:00 Apixaban (Eliquis) 2.5 mg BID PO Last administered on 12/21/18at 09:25; Admin Dose 2.5 MG; Start 12/19/18 at 09:00 Pantoprazole (Protonix Tab) 40 mg DAILY@06 PO Last administered on 12/21/18 06:46; Admin Dose 40 MG; Start 12/21/18 at 06:00 Hydralazine HCl (Apresoline) 10 mg TID PO Last administered on 12/21/18 09:26; Admin Dose 10 MG; Start 12/20/18 at 13:00 Assessment/Plan Hospital Course (Demo Recall) 1. Atrial fibrillation, rate controlled at this time - on Eliquis now. 2. Hypertension, mildly elevated - better now, con't med rx. Treated. 3. Dyslipidemia. 4. History of coronary artery disease, status post coronary artery bypass graft surgery - r/o IL, doubt ischemia. NO CP now. 5. Diastolic dysfunction by most recent echo 02/2018 - euvolemic by exam now. 6. Diabetes mellitus. 7. Fevers, likely consistent with pneumonia - con't anti-Bx - feels better today. 8. Rheumatoid arthritis - noted. 9. Degenerative joint disease. 10. Hypothyroidism. 11. Peripheral arterial disease. 12. Renal failure- Cr stable - reasonable urine output. 13. Hypoxia - home o2 planned. LOU PATINO MD Dec 21, 2018 12:00
--- NOTE | 2018-12-21 18:24 | RADRPT ---
Vent Rate: 71 bpm RR Interval: 0 msec AR Interval: 0 msec QRS Duration: 84 msec QT Interval: 424 msec QTC Interval: 460 msec P-R-T Supai: 0 - 53 - 136 degrees Atrial fibrillation Nonspecific T wave abnormality Prolonged QT Abnormal ECG Electronically Signed By: Bryce Mendez
[2018-12-21] MEDS: ATORVASTATIN 40 MG TAB PO SCH (20:45)
[2018-12-21] MEDS: INSULIN GLARGINE [LANTus] (100 UNITS/ML) SYG SC SCH (20:56)
[2018-12-21] MEDS: TERAZOSIN 5 MG CAP PO SCH (22:34)
[2018-12-21] MEDS: LATANOPROST 0.005% 2.5 ML OPH BOTH EYES SCH (22:34)
[2018-12-21] MEDS: HYDROmorphONE 0.5 MG/0.5 ML SYG IV PRN (22:41)
[2018-12-22] VITALS (7 sets, daily range): BP systolic 134–156; BP diastolic 65–85; PULSE 65–70; RESP 19–22
[2018-12-22] MEDS: LEVALBUTEROL (NEB) 1.25 MG/0.5 ML AMP HHN SCH ×2 (01:21→08:54)
[2018-12-22] MEDS: ACCU-CHEK XX SCH (02:00)
[2018-12-22] MEDS: LEVOTHYROXINE 125 MCG TAB PO SCH (06:13)
[2018-12-22] MEDS: PANTOPRAZOLE (EC) 40 MG TAB PO SCH (06:13)
[2018-12-22] MEDS: INSULIN ASPART [NOVOLOG] 3 ML PEN SC SCH ×2 (07:55→08:20)
[2018-12-22] MEDS: PREGABALIN 25 MG CAP PO SCH (09:17)
[2018-12-22] MEDS: FAMOTIDINE 20 MG TAB PO SCH (09:17)
[2018-12-22] MEDS: LORATADINE 10 MG TAB PO SCH (09:17)
[2018-12-22] MEDS: LEVOFLOXACIN 500MG/D5W (PMX) 100 ML IVPB SCH (09:17)
[2018-12-22] MEDS: METHYLPREDNISOLONE 40 MG INJ IV SCH (09:17)
[2018-12-22] MEDS: CHOLECALCIFEROL 2,000 UNIT CAP PO SCH (09:18)
[2018-12-22] MEDS: APIXABAN 5 MG TABLET PO SCH (09:18)
[2018-12-22] MEDS: FOLIC ACID 1 MG TAB PO SCH (09:18)
[2018-12-22] MEDS: ALLOPURINOL 100 MG TAB PO SCH (09:18)
[2018-12-22] MEDS: FERROUS SULFATE (EC) 325 MG TAB PO SCH (09:18)
[2018-12-22] MEDS: NIFEdipine (XL) 60 MG TAB PO SCH (09:18)
[2018-12-22] MEDS: METOPROLOL 50 MG TAB PO SCH (09:19)
--- NOTE | 2018-12-22 16:55 | QN ---
Documentation Comment [id number] CAMPOS CESAR MD Dec 22, 2018 16:55
--- NOTE | 2018-12-22 18:07 | DS ---
DATE OF ADMISSION: 12/15/2018 DATE OF DISCHARGE: 12/22/2018 ADDENDUM: The patient was waiting for home oxygen. ADDITIONAL DISCHARGE DIAGNOSES: Include: 1. Atrial fibrillation. 2. Hypertension. 3. Dyslipidemia. 4. History of coronary artery disease. 5. History of CABG. 6. The patient has diastolic dysfunction. 7. Diabetes mellitus. 8. Rheumatoid arthritis. 9. Degenerative joint disease. 10. Hypothyroidism. 11. Peripheral vascular disease. 11. Renal failure. 12. Hypoxia. FOLLOWUP: Follow up as an outpatient. Home oxygen has been arranged. Dictated By: CAMPOS ECSAR MD BS/NTS Conf#: [id number] DID#: [id number] CC: MARJORIE JAIN MD; IVAN AKHTAR;*End*
== END 2018-12-22 12:20 | disposition home or self-care (01) | DRG 871 ==
LOC: E/R 17:21 → TEL 18:41 → CANRESERV 20:11
PROVIDERS: ADMIT Internal Medicine; ATTEND Internal Medicine
DX: A41.9 Sepsis, unspecified organism (principal); J18.9 Pneumonia, unspecified organism; I42.9 Cardiomyopathy, unspecified; N17.9 Acute kidney failure, unspecified; N39.0 Urinary tract infection, site not specified; I25.10 Atherosclerotic heart disease of native coronary artery without angina pectoris; M06.9 Rheumatoid arthritis, unspecified; E03.9 Hypothyroidism, unspecified; I73.9 Peripheral vascular disease, unspecified; N18.9 Chronic kidney disease, unspecified; E78.5 Hyperlipidemia, unspecified; E11.22 Type 2 diabetes mellitus with diabetic chronic kidney disease; D63.1 Anemia in chronic kidney disease; E11.9 Type 2 diabetes mellitus without complications; R09.02 Hypoxemia; I48.2 Chronic atrial fibrillation; M19.90 Unspecified osteoarthritis, unspecified site; I51.9 Heart disease, unspecified; I12.9 Hypertensive chronic kidney disease with stage 1 through stage 4 chronic kidney disease, or unspecified chronic kidney disease; Z95.1 Presence of aortocoronary bypass graft
CPT/HCPCS: 36415; 36600; 71045; 80048; 80053; 80061; 81001; 82550; 82553; 82803; 82962; 83605; 83735; 83880; 84100; 84484; 85025; 85610; 85730; 87040; 87045; 87086; 87400; 93005; 93306; 94640; 94664; 97116; 97162; 97530; C9113; J0696; J1170; J1815; J1940; J1956; J2405; J2920; J2930; J3370; J3475; J7030; J7050

== ENCOUNTER 2019-01-04 21:19 | Inpatient (IN) | payer MEDICARE, BC ==
[~2019-01-04] VITALS: Ht 165.1 cm; Wt 70.9 kg
[~2019-01-04 21:19] MED LIST changes: +APIX5TAB PO; -ASPI81TA52 PO; -CLOP75TA27 PO; -DOCU-216 PO; +DOXY100C42 PO; +LEVO500T48 PO; +LYRI25 PO; +MED4DP PO; -MEGE40TA PO; +METO-429 PO; -METO-448 PO; +NIFE60TA18 PO; +POLY17PO6 PO; -PREG50CA PO; -Polyethylene Glycol PO
[2019-01-04] MEDS ORDERED: SODIUM CHLORIDE 0.9% 1L BAG IV* STA (21:38)
[2019-01-04] MEDS ORDERED: ACETAMINOPHEN 325 MG TAB PO STA (21:38)
[2019-01-04] MEDS ORDERED: CEFEPIME 2GM/50 ML (PMX) 50 ML IVPB STA (21:38)
[2019-01-04] MEDS ORDERED: VANCOMYCIN 1 GM (PMX) 250 ML IVPB ONE (22:00)
--- NOTE | 2019-01-04 23:18 | ERD ---
ER Documentation Chief Complaint Chief Complaint Hospitalized for PNA last week, rash on back, scrotal swelling HPI This is an 88-year-old male with a prior history of coronary disease, recent hospital lesion for possible pneumonia last week, who presents with cough, as well as fever noted today. He also has a history of rheumatoid arthritis. His states, that since discharge he has been somewhat weak, they noticed testicular swelling has worsened over the last few days, initially noticed a diffuse red rash over his chest and back, and fever was noted today. He has completed his course of antibiotics, there are no alleviating or aggravating factors. ROS All systems reviewed and are negative except as per history of present illness. Medications Home Meds Active Scripts Methylprednisolone* (Medrol* DOSE PACK) 4 Mg/Dose-Pack Tab.ds.pk, 4 MG PO . DIRECTED for 7 Days, PACKET Prov:IVAN AKHTAR MD 12/20/18 Apixaban* (Eliquis*) 5 Mg Tablet, 2.5 MG PO BID for 30 Days, TAB Prov:IVAN AKHTAR MD 12/20/18 Doxycycline Monohydrate (Doxycycline Monohydrate) 100 Mg Capsule, 100 MG PO BID for 5 Days, CAP Prov:COOPER CARO 12/20/18 Metoprolol Tartrate* (Lopressor*) 50 Mg Tab, 50 MG PO BID for 30 Days, TAB Prov:COOPER CARO 12/20/18 Levofloxacin* (Levaquin*) 500 Mg Tablet, 500 MG PO DAILY for 5 Days, TAB Prov:COOPER CARO 12/20/18 Reported Medications Polyethylene Glycol* (Miralax*) 17 Gm Powd.pack, 17 GM PO DAILY, #30 PACKET 12/15/18 Nifedipine* (Nifedipine ER*) 60 Mg Tablet.sa, 60 MG PO DAILY, TAB.SA 12/15/18 Bisacodyl* (Bisacodyl*) 5 Mg Tablet.dr, 10 MG PO BID PRN for CONSTIPATION, TAB 12/15/18 Pregabalin* (Lyrica*) 25 Mg Capsule, 25 MG PO TID, CAP 12/15/18 Bimatoprost* (Lumigan*) 0.01%-5 Ml Opht Drops, 1 DROP BOTH EYES HS, EA 03/02/18 Cetirizine Hcl* (Cetirizine Hcl*) 10 Mg Tablet, 10 MG PO DAILY, #30 TAB 03/02/18 Insulin Glargine* (Lantus*) 100 Unit/Ml Soln, 10 UNIT SC QHS, #1 VIAL 03/02/18 Ergocalciferol (Vitamin D2) (VITAMIN D2) 2,000 Unit Tablet, 2000 UNIT PO DAILY, TAB 03/02/18 Famotidine* (Famotidine*) 20 Mg Tablet, 20 MG PO DAILY, #30 TAB 03/02/18 Ferrous Sulfate* (Ferrous Sulfate*) 325 Mg Tabec, 325 MG PO BID, TAB 03/02/18 Nitroglycerin* (Nitrostat*) 0.4 Mg Tab.subl, 0.4 MG SL Q5MIN PRN for CHEST PAIN, BOTTLE 03/02/18 Terazosin Hcl* (Terazosin Hcl*) 10 Mg Capsule, 10 MG PO HS, CAP 03/02/18 Levothyroxine Sodium* (Levoxyl*) 125 Mcg Tablet, 125 MCG PO BEFORE BREAKFAST, #30 TAB 03/02/18 Allopurinol* (Allopurinol*) 100 Mg Tablet, 100 MG PO BID, TAB 03/02/18 Atorvastatin* (Atorvastatin*) 40 Mg Tablet, 40 MG PO QHS, #30 TAB 03/02/18 Folic Acid* (Folic Acid*) 1 Mg Tablet, 1 MG PO DAILY, TAB 03/02/18 Allergies Allergies: Coded Allergies: Penicillins (Verified Allergy, Severe, shortness of breath, 12/15/18) Sulfa (Sulfonamide Antibiotics) (Verified Allergy, Severe, Shortness of breath, 12/15/18) sulfadiazine (Verified Allergy, Severe, shortness of breath, 12/15/18) PMhx/Soc History of Surgery: Yes (CABGx2, nuts/bolts in back, carotid artery stent right side) Anesthesia Reaction: No Hx Neurological Disorder: Yes (Neuropathy) Hx Respiratory Disorders: Yes Hx Cardiac Disorders: Yes (HTN, CAD, Atherosclerotic heart disease, Afib) Hx Psychiatric Problems: No Hx Miscellaneous Medical Probl: Yes (RA, DDD, CABG, PVD) Hx Alcohol Use: No Hx Substance Use: No Hx Tobacco Use: Yes Smoking Status: Former smoker Physical Exam Vitals Vital Signs Date Temp Pulse Resp B/P (MAP) Pulse Ox O2 O2 Flow FiO2 Time Delivery Rate 01/04/19 Nasal 4 22:42 Cannula 01/04/19 215.1 88 32 100/94 92 22:39 (96) 01/04/19 101.7 22:00 01/04/19 101.0 88 32 100/94 92 21:23 (96) Physical Exam Const: No acute distress Head: Atraumatic Eyes: Normal Conjunctiva ENT: Normal External Ears, Nose and Mouth. Neck: Full range of motion. No meningismus. Resp: Crackles bilaterally Cardio: Regular rate and rhythm, no murmurs Abd: Soft, non tender, non distended. Normal bowel sounds exam: There is bilateral testicular swelling, there is no significant tenderness, Skin: There is central erythematous rash noted to the chest and back, there are no intraoral ulcers Back: No midline or flank tenderness Ext: No cyanosis, or edema Neur: Awake and alert Psych: Normal Mood and Affect Result Diagram: 01/04/19215501/04/192155 Results 24 hrs Laboratory Tests Test 01/04/19 21:46 01/04/19 21:56 01/04/19 21:58 01/04/19 22:08 POC Venous Lactate 3.0 mmol/L 2.4 mmol/L White Blood Count 19.8 10^3/ul Red Blood Count 2.63 10^6/ul Hemoglobin 7.9 g/dl Hematocrit 23.9 % Mean Corpuscular 90.9 fl Volume Mean Corpuscular 30.0 pg Hemoglobin Mean Corpuscular 33.1 g/dl Hemoglobin Concent Red Cell 16.3 % Distribution Width Platelet Count 199 10^3/UL Mean Platelet 10.0 fl Volume Immature 0.700 % Granulocytes % Neutrophils % 83.0 % Lymphocytes % 8.3 % Monocytes % 7.7 % Eosinophils % 0.1 % Basophils % 0.2 % Nucleated Red Blood 0.0 /100WBC Cells % Immature 0.130 10^3/ul Granulocytes # Neutrophils # 16.4 10^3/ul Lymphocytes # 1.7 10^3/ul Monocytes # 1.5 10^3/ul Eosinophils # 0.0 10^3/ul Basophils # 0.0 10^3/ul Nucleated Red Blood 0.0 10^3/ul Cells # Sodium Level 138 mmol/L Potassium Level 4.5 mmol/L Chloride Level 102 mmol/L Carbon Dioxide 22 mmol/L Level Anion Gap 14 Blood Urea Nitrogen 45 mg/dl Creatinine 1.93 mg/dl Est Glomerular mL/min Filtrat Rate mL/min Glucose Level 135 mg/dl Calcium Level 8.2 mg/dl Total Bilirubin 1.1 mg/dl Direct Bilirubin 0.00 mg/dl Indirect Bilirubin 1.1 mg/dl Aspartate Amino 18 IU/L Transf (AST/SGOT) Alanine 10 IU/L Aminotransferase (A LT/SGPT) Alkaline 59 IU/L Phosphatase Troponin I 0.037 ng/ml Total Protein 6.2 g/dl Albumin 3.2 g/dl Globulin 3.00 g/dl Albumin/Globulin 1.06 Ratio Prothrombin Time 24.5 Sec Prothrombin Time 1.9 Ratio INR International 2.20 Normalized Ratio Activated 35.4 Sec Partial Thromboplas t Time Current Medications Medications Dose Sig/Geeta Start Time Status Last (Trade) Ordered Route PRN Stop Time Admin Dose Reason Admin Sodium 2,040 ml BOLUS OVER 2 01/04/19 DC Chloride HOURS STAT 21:38 (NS) IV* 01/04/19 21:40 650 mg ONCE STAT 01/04/19 DC 01/04/19 Acetaminophen PO 21:38 22:00 (Tylenol 01/04/19 21:40 Tab) Cefepime HCl 50 ml @ ONCE STAT 01/04/19 DC 01/04/19 100 mls/hr IVPB 21:38 21:59 01/04/19 22:07 Vancomycin 250 ml @ ONCE ONCE 01/04/19 01/04/19 HCl 125 mls/hr IVPB 22:00 22:51 01/04/19 23:59 Procedures/MDM This is a 50-year-old male who presents for relation of fever, setting of possible pneumonia on chest x-ray. Patient met code sepsis criteria, given recent admission, he will be treated for comp located pneumonia with vancomycin and cefepime, which will have broad-spectrum coverage. He may have signs of candidal infection in his scrotal area, ultrasound ordered to evaluate for e pididymitis. Patient's lactate appear to be downtrending, he has not had appear to have evidence of septic shock. Suspect his rash is most likely related to rheumatoid arthritis, he has no evidence of TEN or Merrill-Serafin syndrome. Patient remained he medically stable in the ED. Sepsis Documentation: Patient's infectious symptoms have not stabilized and the patient is at risk of rapid decompensation. The patient will be admitted for careful hydration, antibiotic therapy, and infectious source control. SEVERE SEPSIS CRITERIA: Infectious source: Pulmonary End organ damage indicated by: Lactate 3 SEPSIS MANAGEMENT Time of recognition of sepsis: [Upon arrival]. Time of recognition of severe sepsis: [No severe sepsis at this time]. Time of recognition of septic shock: [No septic shock at this time]. 3 HOUR BUNDLE Blood cultures x 2 before broad-spectrum antibiotics: [Yes] 30 ml/kg NS bolus [Completed] Initial lactate 3 Repeat lactate 2.4 SEPTIC SHOCK ASSESSMENT: Accepting Care Team: Current data and ongoing care discussed. Primary: Dewayne Consulting: None Outstanding Data: none I considered further perfusion assessment with CVP measurement, SCVO2, bedside ultrasound volume assessment, passive leg raise, trial of further fluid bolus. And proceeded with [30 ml/kg fluid bolus of NSS, broad spectrum antibiotics, and admission.] CRITICAL CARE Critical care time [35] minutes Emergent fluid management while maintaining close respiratory support. Provision of immediate and broad-spectrum antibiotic therapy. Simultaneous assessment for possible sources in order to direct targeted therapy. Consideration for invasive and chemical support to prevent cardiopulmonary collapse. Critical care time is independent of procedures performed. EKG: Rate/Rhythm: Atrial fibrillation QRS, ST, T-waves: No changes consistent w/ acute ischemia Impression: No evidence of ischemia or arrhythmia Departure Diagnosis: Primary Impression: Fever Fever type: unspecified Qualified Codes: R50.9 - Fever, unspecified Additional Impressions: Rheumatoid arthritis Rheumatoid arthritis location: unspecified site Rheumatoid factor presence: unspecified presence Qualified Codes: M06.9 - Rheumatoid arthritis, unspecified Sepsis Sepsis type: sepsis due to unspecified organism Qualified Codes: A41.9 - Sepsis, unspecified organism Condition: Stable GEETA DOWD MD Jan 04, 2019 23:17
[2019-01-05] MEDS ORDERED: FLUCONAZOLE 150 MG TAB PO ONE
[2019-01-05] MEDS ORDERED: NITROGLYCERIN (SL) 0.4 MG TAB SL PRN (08:00)
[2019-01-05] MEDS ORDERED: NACL 0.9% 3 ML SYG IV SCH (08:00)
[2019-01-05] MEDS ORDERED: BISACODYL (EC) 5 MG TAB PO PRN (08:00)
[2019-01-05] MEDS ORDERED: ALBUTEROL/IPRATROPIUM (NEB) 3 ML AMP HHN PRN (08:00)
[2019-01-05] MEDS ORDERED: HEPARIN 5,000 UNIT/1 ML VIAL SC SCH (09:00)
[2019-01-05] MEDS ORDERED: LEVOFLOXACIN 500 MG TAB PO SCH (09:00)
[2019-01-05] MEDS: LEVOFLOXACIN 500MG/D5W (PMX) 100 ML IVPB SCH (10:09)
[2019-01-05] MEDS: FERROUS SULFATE (EC) 325 MG TAB PO SCH ×2 (10:09→21:45)
[2019-01-05] MEDS: ALLOPURINOL 100 MG TAB PO SCH ×2 (10:09→21:45)
[2019-01-05] MEDS: NIFEdipine (XL) 60 MG TAB PO SCH (10:09)
[2019-01-05] MEDS: FOLIC ACID 1 MG TAB PO SCH (10:10)
[2019-01-05] MEDS ORDERED: FURO-110 PO (10:20)
[2019-01-05] MEDS: METOPROLOL 50 MG TAB PO SCH ×2 (10:52→21:45)
[2019-01-05] MEDS: FAMOTIDINE 20 MG TAB PO SCH (10:52)
[2019-01-05 11:31] VITALS: PULSE 90
[2019-01-05 11:36] VITALS: Ht 165.1 cm; Wt 70.9 kg
[2019-01-05 11:37] VITALS: BP 148/66; PULSE 79; RESP 18
[2019-01-05 12:09] VITALS: PULSE 80
[2019-01-05] MEDS: POLYETHYLENE GLYCOL 17 GM PACKET PO SCH (12:35)
[2019-01-05] MEDS: PREGABALIN 25 MG CAP PO SCH ×3 (12:35→21:44)
[2019-01-05] MEDS: ACETAMINOPHEN 325 MG TAB PO PRN ×2 (12:35→21:42)
--- NOTE | 2019-01-05 13:26 | HP ---
Date/Time of Note Date/Time of Note DATE: 01/05/19 TIME: 13:25 Assessment/Plan VTE Prophylaxis Pharmacological prophylaxis: apixaban Lines/Catheters IV Catheter Type (from Nrsg): Mid Line Central line still needed: Yes Assessment/Plan Hospital Course 1. Sepsis, more likely 2/2 to pneumonia. lactate are increased to 3.0 and 2.4, Chest Xray showed patchy bilateral perihilar increased interstitial changes, may represent an infectious/inflammatory process versus mild pulmonary vascular congestion. Leucocytosis with left shift of neutrophils. SOB, weakness associated with fevers. Pt had recent pneumonia with fluid overload. 2. COPD, on oxygen at home 3. Acute on chronic renal failure likely secondary to sepsis, on discharge in November creatinine 1.3, on admission 1.93 4. Hypertension. 5. Hyperlipidemia. 6. Hypothyroidism. 7. Normocytic normochromic chronic anemia 8. Bilateral groin cellulitis more likely associated with mateus, patches in groin and axilla bilaterally. Back rash. Pt was taken a/b recently 9. History of rheumatoid arthritis. 10. Diabetes type 2. 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 Peripheral vascular disease. 13. Chronic a.fib on anticoagulants Assessment/Plan -DVT proph. Eliquiz BID -GI prophylaxis Famotidine BID -pain control -admitted to tele. -c/w home meds -nyst cream -c/w Levaquin. - blood cultures was sent. - Pulmonary and ID consultations has been obtained. - nebs round the clock. Result Diagram: 01/05/19 0836 01/05/19 0836 Results 24hrs Laboratory Tests Test 01/04/19 21:46 01/04/19 21:56 01/04/19 21:57 01/04/19 21:58 POC Venous Lactate 3.0 *H 2.4 *H White Blood Count 19.8 #H Red Blood Count 2.63 L Hemoglobin 7.9 L Hematocrit 23.9 L Mean Corpuscular 90.9 Volume Mean Corpuscular 30.0 Hemoglobin Mean Corpuscular 33.1 Hemoglobin Concent Red Cell 16.3 H Distribution Width Platelet Count 199 Mean Platelet Volume 10.0 Immature 0.700 H Granulocytes % Neutrophils % 83.0 H Lymphocytes % 8.3 L Monocytes % 7.7 Eosinophils % 0.1 Basophils % 0.2 Nucleated Red Blood 0.0 Cells % Immature 0.130 H Granulocytes # Neutrophils # 16.4 H Lymphocytes # 1.7 Monocytes # 1.5 H Eosinophils # 0.0 Basophils # 0.0 Nucleated Red Blood 0.0 Cells # Sodium Level 138 Potassium Level 4.5 Chloride Level 102 Carbon Dioxide Level 22 Anion Gap 14 H Blood Urea Nitrogen 45 H Creatinine 1.93 H Est Glomerular Filtrat Rate mL/min Glucose Level 135 Calcium Level 8.2 L Total Bilirubin 1.1 Direct Bilirubin 0.00 Indirect Bilirubin 1.1 Aspartate Amino 18 Transf (AST/SGOT) Alanine 10 L Aminotransferase (AL T/SGPT) Alkaline Phosphatase 59 Troponin I 0.037 Total Protein 6.2 Albumin 3.2 L Globulin 3.00 Albumin/Globulin 1.06 Ratio Lactic Acid Level 3.0 *H Test 01/04/19 22:08 01/04/19 23:42 01/05/19 01:58 01/05/19 08:36 Prothrombin Time 24.5 #H Prothrombin Time 1.9 Ratio INR International 2.20 Normalized Ratio Activated 35.4 H Partial Thromboplast Time Lactic Acid Level 1.4 1.0 White Blood Count 13.4 #H Red Blood Count 2.44 L Hemoglobin 7.2 L Hematocrit 22.2 L Mean Corpuscular 91.0 Volume Mean Corpuscular 29.5 Hemoglobin Mean Corpuscular 32.4 Hemoglobin Concent Red Cell 16.4 H Distribution Width Platelet Count 197 Mean Platelet Volume 10.1 Immature 0.600 H Granulocytes % Neutrophils % 77.9 H Lymphocytes % 12.6 L Monocytes % 7.2 Eosinophils % 1.6 Basophils % 0.1 Nucleated Red Blood 0.0 Cells % Immature 0.080 H Granulocytes # Neutrophils # 10.5 H Lymphocytes # 1.7 Monocytes # 1.0 H Eosinophils # 0.2 Basophils # 0.0 Nucleated Red Blood 0.0 Cells # Sodium Level 140 Potassium Level 4.0 Chloride Level 109 Carbon Dioxide Level 22 Anion Gap 9 # Blood Urea Nitrogen 37 H Creatinine 1.66 H Est Glomerular Filtrat Rate mL/min Glucose Level 104 Calcium Level 7.3 L Total Bilirubin 0.8 Direct Bilirubin 0.00 Indirect Bilirubin 0.8 Aspartate Amino 13 L Transf (AST/SGOT) Alanine 18 Aminotransferase (AL T/SGPT) Alkaline Phosphatase 61 Total Protein 5.6 L Albumin 2.7 L Globulin 2.90 Albumin/Globulin 0.93 Ratio Test 01/05/19 08:37 Hemoglobin A1c 5.8 HPI/ROS Admit Date/Time Admit Date/Time Jan 05, 2019 at 00:47 Hx of Present Illness This is an 88-year-old male with a past medical history of recent pneumonia, rheumatoid arthritis, degenerative disk disease, history of CABG x2 in the past, peripheral vascular disease, presented to the emergency department yesterday for fever, skin rash in groin area and weakness. According to the patient, he was in hospital in November 2018 and was discharged with antibiotics, he finished course of a/b and felt better until 4 days ago he developed scrotal edema, weakness, and rash in groin area, axilla. He has also been having shor tness of breath and was not been able to be out of bed much for the past 2 days. The patient denied any abdominal pain, nausea, vomiting or diarrhea. He came to the emergency department for further evaluation. On arrival to the ED, the patient was found to have fevers of 101, blood pressure was 100/94, pulse oximetry 92. White count was 19.8, left shift neutrophiles, hemoglobin 7.9, HCT 23, platelet count 197. BMP showed BUN of 37 and creatinine of 1.66, patient discharge creatinine was 1.3. Lactate was 3.0 and 2.4. Influenza A and B are not available yet. The patient had initial chest x-ray that showed patchy bilateral perihilar increased interstitial changes may represent an infecti ous/inflammatory process versus mild pulmonary vascular congestion. Pt has hx of COPD, he is a former smoker. The patient received in ER Vancomycin and Cefepime, NS 2 liters bolus, and after that pt was admitted to telemetry service. ABG is not done. PAST MEDICAL HISTORY: 1. History of CABG. 2. Rheumatoid arthritis. 3. History of AFib. 4. History of coronary artery disease. 5. Hypertension. 6. History of peripheral vascular disease. MEDICATIONS AT HOME: 1. Cetirizine 10 mg. 2. Plavix 75. 3. Iron sulfate 325 b.i.d. 4. Atorvastatin 40 mg at bedtime. 5. Metoprolol 25 b.i.d. 6. Nifedipine 60. 7. Terazosin 10. 8. Aspirin 81. 9. Lyrica 25 t.i.d. 10. Bisacodyl. 11. Lumigan eyedrops. 12. Pepcid. 13. Lantus 10 units. 14. Levothyroxine 125. 15. Ergocalciferol. 16. Folic acid. 17. Allopurinol 100 b.i.d. SOCIAL HISTORY: The patient lives with his daughter at home. FAMILY HISTORY: Significant for cancer of the GI tract in the family. ROS testicular pain Constitutional: chills, fatigue, febrile Respiratory: shortness of breath, sputum; No no complaints, No pain, No cough, No pleuritic pain, No wheezing, No other Cardiovascular: no complaints, chest pain, edema (testes), lightheadedness, orthopenea, palpitations, paroxysmal nocturnal dyspnea, other Genitourinary: dysuria, discharge; No no complaints, No bleeding, No flank pain, No hematuria, No other Skin: erythema, pruritis, skin lesions PMH/Family/Social Past Medical History Medical History: coronary artery disease, diabetes, high cholesterol, hypertension, renal disease Medications Current Medications IV Flush (NS 3 ml) 3 ml PER PROTOCOL IV ; Start 01/05/19 at 08:00 Acetaminophen (Tylenol Tab) 650 mg Q6H PRN PO .PAIN 1-3 OR TEMP Last administered on 01/05/19at 12:35; Admin Dose 650 MG; Start 01/05/19 at 08:00 Albuterol/ Ipratropium (Duoneb) 3 ml Q2H RESP THERAPY PRN HHN SHORTNESS OF BREATH; Start 01/05/19 at 08:00 Allopurinol (Zyloprim) 100 mg BID PO Last administered on 01/05/19at 10:09; Admin Dose 100 MG; Start 01/05/19 at 09:00 Apixaban (Eliquis) 2.5 mg BID PO ; Start 01/06/19 at 09:00 Atorvastatin Calcium (Lipitor) 40 mg QHS PO ; Start 01/05/19 at 21:00 Bisacodyl (Dulcolax) 10 mg BID PRN PO CONSTIPATION; Start 01/05/19 at 08:00 Famotidine (Pepcid) 20 mg DAILY PO Last administered on 01/05/19at 10:52; Admin Dose 20 MG; Start 01/05/19 at 09:00 Ferrous Sulfate (Ferrous Sulfate (Ec)) 325 mg BID PO Last administered on 01/05/19 10:09; Admin Dose 325 MG; Start 01/05/19 at 09:00 Folic Acid (Folic Acid) 1 mg DAILY PO Last administered on 01/05/19 10:10; Admin Dose 1 MG; Start 01/05/19 at 09:00 Insulin Glargine (Lantus) 10 units QHS SC ; Start 01/05/19 at 21:00 Levothyroxine Sodium (Synthroid) 125 mcg BEFORE BREAKFAST PO ; Start 01/06/19 at 07:00 Metoprolol Tartrate (Lopressor) 50 mg BID PO Last administered on 01/05/19 10:52; Admin Dose 50 MG; Start 01/05/19 at 09:00 Nifedipine (Procardia Xl) 60 mg DAILY PO Last administered on 01/05/19 10:09; Admin Dose 60 MG; Start 01/05/19 at 09:00 Nitroglycerin (Nitroglycerin (Sl Tab) 0.4 Mg) 0.4 tab Q5M PRN SL CHEST PAIN; Start 01/05/19 at 08:00 Polyethylene Glycol (Miralax) 17 gm DAILY PO Last administered on 01/05/19 12:35; Admin Dose 17 GM; Start 01/05/19 at 09:00 Pregabalin (Lyrica) 25 mg TID PO Last administered on 01/05/19 12:35; Admin Dose 25 MG; Start 01/05/19 at 09:00 Terazosin HCl (Hytrin) 10 mg HS PO ; Start 01/05/19 at 21:00 Levofloxacin/ Dextrose 100 ml @ 100 mls/hr Q48H IVPB Last administered on 01/05/19 10:09; Admin Dose 100 MLS/HR; Start 01/05/19 at 09:00 Latanoprost (Xalatan) 1 drop HS BOTH EYES ; Start 01/05/19 at 21:00 Coded Allergies: Penicillins (Verified Allergy, Severe, shortness of breath, 01/05/19) Sulfa (Sulfonamide Antibiotics) (Verified Allergy, Severe, Shortness of breath, 01/05/19) sulfadiazine (Verified Allergy, Severe, shortness of breath, 01/05/19) Past Surgical History Past Surgical Hx: angioplasty (x2), other ( nuts/bolts in back, carotid artery stent right side) Social History Alcohol Use: none Smoking Status: Former smoker Drug Use: none Exam/Review of Systems Vital Signs Vitals Vital Signs Date Temp Pulse Resp B/P (MAP) Pulse Ox O2 O2 Flow FiO2 Time Delivery Rate 01/05/19 80 12:09 01/05/19 Nasal 2.0 11:40 Cannula 01/05/19 98.4 18 148/66 100 11:37 (93) Exam Constitutional: alert, oriented Head: normocephalic ENMT: nl external ears & nose Neck: supple Respiratory: diminished breath sounds, other (on chronic oxygen) Cardiovascular: regular rate and rhythm (a.fib) Gastrointestinal: soft, nl liver, spleen, non-tender, ascites, bowel sounds, distended, firm, hepatomegaly, mass, rebound or guarding, splenomegaly, surgical scars, tender, other Genitourinary - Male: CVA tenderness, other (swollen testicules); No nl penis, No nl scrotum, No discharge Skin: other (skin cellulitis bilateral groin, axilla) COOPER CARO Jan 05, 2019 13:26
--- NOTE | 2019-01-05 14:35 | CONS ---
Assessment/Plan Assessment/Plan Hospital Course (Demo Recall) ID PRELIMINARY VISIT NOTE =>Please refer to Dr. Fournier's FULL CONSULT NOTE dictation pending drug purchaser. CURRENT ABX: DAY # 2 => Levaquin s/p Vanco IV + Cefepime 01/0401/05/19 0836 01/05/19 0836 HPI/HOSPITAL COURSE * 88 yo M w/multiple-cardiopulmonary co-morbid conditions -- readmitted with sepsis likely due to pulmonary infection. * Patient s/p recent admission for PNA with radiological improvement -- now returns with probable persistent pulm infection + SIGNIFICANT YEAST DERMATOMYCOSIS GROIN -- Primary has narrowed ABX spectrum for concern YEAST infection and MICHELLE which is an effective strategy. * WBC down with empiric ABX coverage. * ROS: Limited by patient's critical illness DIAGNOSTIC IMAGING * 01/04/19 CXR: * Mild cardiomegaly. * Calcified aorta consistent with atherosclerotic disease. * Patchy bilateral perihilar increased interstitial changes may represent an infectious/inflammatory process versus mild pulmonary vascular congestion. * 12/16/18 2D ECHO Conclusions: * Normal left ventricular systolic function. Normal left ventricular cavity size. Moderate concentric left ventricular hypertrophy. Ejection fraction is visually estimated at 60 %. Tissue Doppler/Mitral Doppler indices are consistent with restrictive physiology with markedly elevated left atrial pressure (Stage III-IV diastolic dysfunction). * Mild right ventricular systolic dysfunction. Mild enlargement of right ventricle. * There is moderate enlargement of right atrium. * Normal appearance and function of the mitral valve with trace physiologic regurgitation. Mitral valve leaflets appear mildly thickened. Mild mitral annular calcification. Mild to moderate mitral valve regurgitation. * Normal appearance of the aortic valve. No significant aortic stenosis or insufficiency. No hemodynamically significant aortic stenosis by doppler. Aortic cusps appear mildly calcified. Mild aortic valve regurgitation. * Normal appearance of the tricuspid valve. Estimated peak PA systolic pressure 74 mmHg. There is moderate tricuspid regurgitation. MICRO/OTHER * PENDING * PHYSICAL EXAMINATION: GENERAL: VSS, frail elderly male lethargic -- acute hypoxic respiratory distress HEENT: AT, NC, anicteric NECK: Supple, CHEST: Equal chest rise bilaterally - diminishes bilateral HEART: Pulse RRR ABDOMEN: Soft / NT EXTREMITIES: Warm, dry SKIN: No rash, no diaphoresis == BILATERAL AXILLARY, GROIN, SANDY YEAST INFECTION ID ASSESSMENT 88 yo M w/multiple chronic co-morbid conditions re-admit with: 1. Sepsis, due to persisting vs recurrent pneumonia. * Admit w/acute hypoxic SOB * Admit with fevers, leukocytosis, generalized weakness, lactate are increased to 3.0 and 2.4 * Chest Xray showed patchy bilateral perihilar increased interstitial changes, may represent an infectious/inflammatory process versus mild pulmonary vascular congestion. 2. 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 4. 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 Advanced rheumatoid arthritis with possibility of rheumatoid lung as well. * Patient was on Remicade and stopped using it about a year ago. 6. Hypertension w/HTN heart disease 7. Hyperlipidemia. 8. Hypothyroidism. 9. Normocytic normochromic chronic anemia 10. Bilateral groin cellulitis more likely associated with mateus, patches in groin and axilla bilaterally-> recent ABX for PNA 11. Acute on chronic renal failure likely secondary to sepsis, on discharge in November creatinine 1.54, now 1.93 12. Diabetes type 2. 13. CV disease, CAD, PAD, Hx of CABGx2, carotid stent 14. Peripheral vascular disease. 15. Chronic A.Fib on anticoagulants 16. Thrombocytopenia. 17. BPH on Hytrin (?)MRSA Nares == will order screening ABX ALLERGIES: KNDA INVASIVES: PIV CURRENT ABX: DAY #2 => Levaquin + Doxy #1 + Cancidas s/p Vanco IV + Cefepime ID RECOMMENDATIONS/PLAN: 1. Continue Levaquin + Add Doxycycline 2. Add Cancidas for severe yeast infection due to ABX -- unable to Rx Diflucan/Vfend due to drug drug interactions * Nystatin topical powder 3. Check MRSA Nares 4. Watch renal fx on ABX 5. Obtain sputum sample if able to produce *Thank you - D/W Dr. Fournier who will follow the patient closely with you via [employer]. . Consultation Date/Type/Reason Admit Date/Time Jan 05, 2019 at 00:47 Initial Consult Date Date/Time of Note DATE: 01/05/19 TIME: 14:08 Exam/Review of Systems Exam Vitals Vital Signs Date Temp Pulse Resp B/P (MAP) Pulse Ox O2 O2 Flow FiO2 Time Delivery Rate 01/05/19 80 12:09 01/05/19 Nasal 2.0 11:40 Cannula 01/05/19 98.4 18 148/66 100 11:37 (93) Results Result Diagram: 01/05/19 0836 01/05/19 0836 Results 24hrs Laboratory Tests Test 01/04/19 21:46 01/04/19 21:56 01/04/19 21:57 01/04/19 21:58 POC Venous Lactate 3.0 *H 2.4 *H White Blood Count 19.8 #H Red Blood Count 2.63 L Hemoglobin 7.9 L Hematocrit 23.9 L Mean Corpuscular 90.9 Volume Mean Corpuscular 30.0 Hemoglobin Mean Corpuscular 33.1 Hemoglobin Concent Red Cell 16.3 H Distribution Width Platelet Count 199 Mean Platelet Volume 10.0 Immature 0.700 H Granulocytes % Neutrophils % 83.0 H Lymphocytes % 8.3 L Monocytes % 7.7 Eosinophils % 0.1 Basophils % 0.2 Nucleated Red Blood 0.0 Cells % Immature 0.130 H Granulocytes # Neutrophils # 16.4 H Lymphocytes # 1.7 Monocytes # 1.5 H Eosinophils # 0.0 Basophils # 0.0 Nucleated Red Blood 0.0 Cells # Sodium Level 138 Potassium Level 4.5 Chloride Level 102 Carbon Dioxide Level 22 Anion Gap 14 H Blood Urea Nitrogen 45 H Creatinine 1.93 H Est Glomerular Filtrat Rate mL/min Glucose Level 135 Calcium Level 8.2 L Total Bilirubin 1.1 Direct Bilirubin 0.00 Indirect Bilirubin 1.1 Aspartate Amino 18 Transf (AST/SGOT) Alanine 10 L Aminotransferase (AL T/SGPT) Alkaline Phosphatase 59 Troponin I 0.037 Total Protein 6.2 Albumin 3.2 L Globulin 3.00 Albumin/Globulin 1.06 Ratio Lactic Acid Level 3.0 *H Test 01/04/19 22:08 01/04/19 23:42 01/05/19 01:58 01/05/19 08:36 Prothrombin Time 24.5 #H Prothrombin Time 1.9 Ratio INR International 2.20 Normalized Ratio Activated 35.4 H Partial Thromboplast Time Lactic Acid Level 1.4 1.0 White Blood Count 13.4 #H Red Blood Count 2.44 L Hemoglobin 7.2 L Hematocrit 22.2 L Mean Corpuscular 91.0 Volume Mean Corpuscular 29.5 Hemoglobin Mean Corpuscular 32.4 Hemoglobin Concent Red Cell 16.4 H Distribution Width Platelet Count 197 Mean Platelet Volume 10.1 Immature 0.600 H Granulocytes % Neutrophils % 77.9 H Lymphocytes % 12.6 L Monocytes % 7.2 Eosinophils % 1.6 Basophils % 0.1 Nucleated Red Blood 0.0 Cells % Immature 0.080 H Granulocytes # Neutrophils # 10.5 H Lymphocytes # 1.7 Monocytes # 1.0 H Eosinophils # 0.2 Basophils # 0.0 Nucleated Red Blood 0.0 Cells # Sodium Level 140 Potassium Level 4.0 Chloride Level 109 Carbon Dioxide Level 22 Anion Gap 9 # Blood Urea Nitrogen 37 H Creatinine 1.66 H Est Glomerular Filtrat Rate mL/min Glucose Level 104 Calcium Level 7.3 L Total Bilirubin 0.8 Direct Bilirubin 0.00 Indirect Bilirubin 0.8 Aspartate Amino 13 L Transf (AST/SGOT) Alanine 18 Aminotransferase (AL T/SGPT) Alkaline Phosphatase 61 Total Protein 5.6 L Albumin 2.7 L Globulin 2.90 Albumin/Globulin 0.93 Ratio Test 01/05/19 08:37 Hemoglobin A1c 5.8 Medications Medication Current Medications IV Flush (NS 3 ml) 3 ml PER PROTOCOL IV ; Start 01/05/19 at 08:00 Acetaminophen (Tylenol Tab) 650 mg Q6H PRN PO .PAIN 1-3 OR TEMP Last administered on 01/05/19at 12:35; Admin Dose 650 MG; Start 01/05/19 at 08:00 Albuterol/ Ipratropium (Duoneb) 3 ml Q2H RESP THERAPY PRN HHN SHORTNESS OF BREATH; Start 01/05/19 at 08:00 Allopurinol (Zyloprim) 100 mg BID PO Last administered on 01/05/19at 10:09; Admin Dose 100 MG; Start 01/05/19 at 09:00 Apixaban (Eliquis) 2.5 mg BID PO ; Start 01/06/19 at 09:00 Atorvastatin Calcium (Lipitor) 40 mg QHS PO ; Start 01/05/19 at 21:00 Bisacodyl (Dulcolax) 10 mg BID PRN PO CONSTIPATION; Start 01/05/19 at 08:00 Famotidine (Pepcid) 20 mg DAILY PO Last administered on 01/05/19at 10:52; Admin Dose 20 MG; Start 01/05/19 at 09:00 Ferrous Sulfate (Ferrous Sulfate (Ec)) 325 mg BID PO Last administered on 01/05/19 10:09; Admin Dose 325 MG; Start 01/05/19 at 09:00 Folic Acid (Folic Acid) 1 mg DAILY PO Last administered on 01/05/19at 10:10; Admin Dose 1 MG; Start 01/05/19 at 09:00 Insulin Glargine (Lantus) 10 units QHS SC ; Start 01/05/19 at 21:00 Levothyroxine Sodium (Synthroid) 125 mcg BEFORE BREAKFAST PO ; Start 01/06/19 at 07:00 Metoprolol Tartrate (Lopressor) 50 mg BID PO Last administered on 01/05/19at 10:52; Admin Dose 50 MG; Start 01/05/19 at 09:00 Nifedipine (Procardia Xl) 60 mg DAILY PO Last administered on 01/05/19at 10:09; Admin Dose 60 MG; Start 01/05/19 at 09:00 Nitroglycerin (Nitroglycerin (Sl Tab) 0.4 Mg) 0.4 tab Q5M PRN SL CHEST PAIN; Start 01/05/19 at 08:00 Polyethylene Glycol (Miralax) 17 gm DAILY PO Last administered on 01/05/19at 12:35; Admin Dose 17 GM; Start 01/05/19 at 09:00 Pregabalin (Lyrica) 25 mg TID PO Last administered on 01/05/19at 12:35; Admin Dose 25 MG; Start 01/05/19 at 09:00 Terazosin HCl (Hytrin) 10 mg HS PO ; Start 01/05/19 at 21:00 Levofloxacin/ Dextrose 100 ml @ 100 mls/hr Q48H IVPB Last administered on 01/05/19at 10:09; Admin Dose 100 MLS/HR; Start 01/05/19 at 09:00 Latanoprost (Xalatan) 1 drop HS BOTH EYES ; Start 01/05/19 at 21:00 Nystatin/ Triamcinolone Acetonide (Mycolog Cr) 1 applic BID TOP ; Start 01/05/19 at 21:00; Status [facility] Jan 05, 2019 14:22
[2019-01-05] MEDS ORDERED: CASPOFUNGIN 70 MG in SOD CHLORIDE 0.9% 250 ML IVPB ONE (15:30)
[2019-01-05 16:00] VITALS: BP 126/68; PULSE 70; RESP 18
[2019-01-05 16:12] VITALS: PULSE 60
--- NOTE | 2019-01-05 18:05 | CONS ---
DATE OF ADMISSION: 01/05/2019 DATE OF CONSULTATION: 01/05/2019 TYPE OF CONSULTATION: Infectious Disease. REASON FOR CONSULTATION: Antibiotic management. HISTORY OF PRESENT ILLNESS: Brandin Mcintyre is an 88-year-old male who was hospitalized for pneumonia l ast week, has a rash on his back, scrotal swelling and comes in now with cough and fever. PAST PROBLEMS: Include: 1. Coronary artery disease. 2. History of pneumonia last week. 3. Rash on his back. 4. History of rheumatoid arthritis. He presents with cough and fever. His states that since discharge, he has been feeling somewhat weak. He noticed some testicular swelling that is worse in the last few days. He noticed diffuse r chan over the chest and back. He has completed his course of antibiotics. There are no other factors that are alleviating things. PAST SURGICAL HISTORY: His past surgeries include coronary bypass graft x2. He has hardware in his back, coronary artery stent on the right side. PAST MEDICAL HISTORY: He has peripheral neuropathy, hypertension, atrial fibrillation, rheumatoid ar thritis, peripheral vascular disease. FAMILY HISTORY: Noncontributory. SOCIAL HISTORY: He is a former smoker. He does not drink or abuse drugs. ALLERGIES: NONE TO PENICILLIN, SULFA OR FOODS. MEDICATIONS: Per chart. REVIEW OF SYSTEMS: Noncontributory. PHYSICAL EXAMINATION: GENERAL: The patient is an elderly, ill-appearing male who is awake, responsive, in no acute distres s. VITAL SIGNS: Stable. T-max is 101.7. SKIN: Without generalized rash. HEENT: Within normal limits. NECK: Supple. LYMPH NODES: None palpable. CHEST: Decreased breath sounds at the bases with rales as well. HEART: Without murmur or gallop. ABDOMEN: Soft, nontender without organosplenomegaly or masses. EXTREMITIES: Without cyanosis, clubbing, or edema. He has bilateral testicular swelling. He has an erythematous rash on his chest and back. RECTAL AND GENITAL: Deferred. NEUROLOGICAL EVALUATION: No focal neurological abnormality. White count 19.8 with 83 polys, H and H of 7.9 and 23.9, platelet count 199,000. BUN and creatinine 45/1.93, glucose of 135. IMPRESSION AND PLAN: The patient was started on vancomycin and cefepime. He presents with fever. A s noted is he is being considered for severe sepsis as well. Chest x-ray, calcified aorta consistent with atherosclerotic disease, patchy bilateral perihilar, increased interstitial changes, may repres ent an infectious or inflammatory process versus mild pulmonary congestion. The patient was seen by my nurse practitioner, Agueda Kearney. Today, white count is 13.4. Microbiology is pending. Sepsis due to persistent versus recurrent pneumonia. We will continue him on current antibiotic therapy an d await culture results. Chest x-ray shows patchy bilateral perihilar, increased interstitial change s, infection, inflammatory process versus pulmonary vascular congestion. He has congestive heart yany lure, COPD, rheumatoid arthritis, and numerous other problems. We are going to continue Levaquin and add doxycycline, add Cancidas for yeast infection. We cannot use Diflucan or ____ due to drug-drug interactions. I will check MRSA of the nares. I will dictate my findings to Dr. Cesar. Dictated By: LILY LAMBERT MD, JD/NTS Conf#: [id number] DID#: [id number] CC: CAMPOS CESAR MD; IVAN AKHTAR;*EndCC*
[2019-01-05 20:00] VITALS: BP 167/67; PULSE 113; PULSE 118; RESP 18
[2019-01-05] MEDS ORDERED: BIMATOPROST 0.01% 2.5 ML BTL BOTH EYES SCH (21:00)
[2019-01-05] MEDS: DOXYCYCLINE 100 MG in SOD CHLORIDE 0.9% 250 ML IVPB SCH (21:42)
[2019-01-05] MEDS: NYSTATIN/TRIAMCINOLONE 15 GM CR TOP SCH (21:42)
[2019-01-05] MEDS: NYSTATIN 30 GM POWDER BTL TOP SCH (21:42)
[2019-01-05] MEDS: LATANOPROST 0.005% 2.5 ML OPH BOTH EYES SCH (21:43)
[2019-01-05] MEDS: TERAZOSIN 5 MG CAP PO SCH (21:44)
[2019-01-05] MEDS: ATORVASTATIN 40 MG TAB PO SCH (21:45)
[2019-01-05] MEDS: INSULIN GLARGINE [LANTus] (100 UNITS/ML) SYG SC SCH (21:55)
[2019-01-06] VITALS (9 sets, daily range): BP systolic 102–118; BP diastolic 44–71; PULSE 70–98; RESP 18–20
[2019-01-06] MEDS: LEVOTHYROXINE 125 MCG TAB PO SCH (06:21)
[2019-01-06] MEDS: PREGABALIN 25 MG CAP PO SCH ×3 (08:09→20:06)
[2019-01-06] MEDS: POLYETHYLENE GLYCOL 17 GM PACKET PO SCH (08:09)
[2019-01-06] MEDS: DOXYCYCLINE 100 MG in SOD CHLORIDE 0.9% 250 ML IVPB SCH ×2 (08:09→20:21)
[2019-01-06] MEDS: FERROUS SULFATE (EC) 325 MG TAB PO SCH ×2 (08:09→20:05)
[2019-01-06] MEDS: ALLOPURINOL 100 MG TAB PO SCH (08:10)
[2019-01-06] MEDS: FAMOTIDINE 20 MG TAB PO SCH (08:10)
[2019-01-06] MEDS: FOLIC ACID 1 MG TAB PO SCH (08:10)
[2019-01-06] MEDS: METOPROLOL 50 MG TAB PO SCH ×2 (08:10→20:05)
[2019-01-06] MEDS: NIFEdipine (XL) 60 MG TAB PO SCH (08:10)
[2019-01-06] MEDS: NYSTATIN 30 GM POWDER BTL TOP SCH ×2 (08:11→20:21)
[2019-01-06] MEDS: NYSTATIN/TRIAMCINOLONE 15 GM CR TOP SCH ×2 (08:11→20:21)
[2019-01-06] MEDS ORDERED: APIXABAN 5 MG TABLET PO SCH (09:00)
[2019-01-06] MEDS ORDERED: GLUCAGON 1 MG INJ IM PRN (10:00)
[2019-01-06] MEDS ORDERED: GLUCOSE GEL 15 GRAM TUBE BUCCAL PRN (10:00)
[2019-01-06] MEDS ORDERED: GLUCOSE GEL 15 GRAM TUBE PO PRN ×2 (10:00)
[2019-01-06] MEDS ORDERED: DEXTROSE 50% 50 ML SYRINGE IV PRN ×2 (10:00)
[2019-01-06] MEDS ORDERED: MAGNESIUM SULFATE 3 GM in DEXTROSE 5% 100 ML IVPB ONE (10:30)
--- NOTE | 2019-01-06 10:50 | CONS ---
Assessment/Plan Assessment/Plan Assessment/Plan (Daily) Assessment and recommendations; 1. Patient admitted with recurrent bilateral pneumonia with interval clinical improvement. 2. Other comorbidities include history of severe rheumatoid arthritis, hyp othyroidism, hypertension, diabetes, and chronic renal insufficiency. 3. History of prior CABG. Continue current supportive care. Obtain follow-up chest x-ray in 48 hours. Consultation Date/Type/Reason Admit Date/Time Jan 05, 2019 at 00:47 Date of Consultation: Jan 06, 2019 Type of Consult Pulmonary Patient is a 88-year-old male who was admitted with complaints of shortness of breath. Patient has been diagnosed with recurrent bilateral pneumonia. Started on appropriate antimicrobial regimen with interval improvement over the last 2 days. Past medical history; 1. History of recent admission to the hospital with bilateral pneumonia, patient was discharged home in stable condition. 2. Severe rheumatoid arthritis with possibility of rheumatoid lung. 3. History of prior CABG 4. Hypertension 5. Diabetes 6. Chronic renal insufficiency 7. History of hypothyroidism 8. History of Remicade use about a year ago Allergies as outlined above Social history; patient never smoked Family history; noncontributory occupational history; patient has had miscellaneous occupations Review of systems; denies any headache, sinus symptoms. Any chest pain. Shortness of breath coughing has improved. Denies any fever chills. Any abdominal pain, nausea vomiting. Denies any orthopnea. Any weight loss. Denies any skin changes or any new arthritis symptoms. General exam; elderly male, currently no distress Date/Time of Note DATE: 01/06/19 TIME: 10:46 Past Medical History Medical History: coronary artery disease, diabetes, high cholesterol, hypertension, renal disease Home Meds Active Scripts Apixaban* (Eliquis*) 5 Mg Tablet, 2.5 MG PO BID for 30 Days, TAB Prov:IVAN AKHTAR MD 12/20/18 Metoprolol Tartrate* (Lopressor*) 50 Mg Tab, 50 MG PO BID for 30 Days, TAB Prov:COOPER CARO 12/20/18 Reported Medications Furosemide* (Lasix*) 20 Mg Tablet, 20 MG PO BID, TAB 01/05/19 Polyethylene Glycol* (Miralax*) 17 Gm Powd.pack, 17 GM PO DAILY, #30 PACKET 12/15/18 Nifedipine* (Nifedipine ER*) 60 Mg Tablet.sa, 60 MG PO DAILY, TAB.SA 12/15/18 Bisacodyl* (Bisacodyl*) 5 Mg Tablet.dr, 10 MG PO BID PRN for CONSTIPATION, TAB 12/15/18 Pregabalin* (Lyrica*) 25 Mg Capsule, 25 MG PO TID, CAP 12/15/18 Bimatoprost* (Lumigan*) 0.01%-5 Ml Opht Drops, 1 DROP BOTH EYES HS, EA 03/02/18 Cetirizine Hcl* (Cetirizine Hcl*) 10 Mg Tablet, 10 MG PO DAILY, #30 TAB 03/02/18 Insulin Glargine* (Lantus*) 100 Unit/Ml Soln, 10 UNIT SC QHS, #1 VIAL 03/02/18 Ergocalciferol (Vitamin D2) (VITAMIN D2) 2,000 Unit Tablet, 2000 UNIT PO DAILY, TAB 03/02/18 Famotidine* (Famotidine*) 20 Mg Tablet, 20 MG PO DAILY, #30 TAB 03/02/18 Ferrous Sulfate* (Ferrous Sulfate*) 325 Mg Tabec, 325 MG PO BID, TAB 03/02/18 Nitroglycerin* (Nitrostat*) 0.4 Mg Tab.subl, 0.4 MG SL Q5MIN PRN for CHEST PAIN, BOTTLE 03/02/18 Terazosin Hcl* (Terazosin Hcl*) 10 Mg Capsule, 10 MG PO HS, CAP 03/02/18 Levothyroxine Sodium* (Levoxyl*) 125 Mcg Tablet, 125 MCG PO BEFORE BREAKFAST, #30 TAB 03/02/18 Allopurinol* (Allopurinol*) 100 Mg Tablet, 100 MG PO BID, TAB 03/02/18 Atorvastatin* (Atorvastatin*) 40 Mg Tablet, 40 MG PO QHS, #30 TAB 03/02/18 Folic Acid* (Folic Acid*) 1 Mg Tablet, 1 MG PO DAILY, TAB 03/02/18 Discontinued Scripts Methylprednisolone* (Medrol* DOSE PACK) 4 Mg/Dose-Pack Tab.ds.pk, 4 MG PO . DIRECTED for 7 Days, PACKET Prov:IVAN AKHTAR MD 12/20/18 Doxycycline Monohydrate (Doxycycline Monohydrate) 100 Mg Capsule, 100 MG PO BID for 5 Days, CAP Prov:COOPER CARO 12/20/18 Levofloxacin* (Levaquin*) 500 Mg Tablet, 500 MG PO DAILY for 5 Days, TAB Prov:COOPER CARO 12/20/18 Medications Current Medications IV Flush (NS 3 ml) 3 ml PER PROTOCOL IV ; Start 01/05/19 at 08:00 Acetaminophen (Tylenol Tab) 650 mg Q6H PRN PO .PAIN 1-3 OR TEMP Last administered on 01/05/19 21:42; Admin Dose 650 MG; Start 01/05/19 at 08:00 Albuterol/ Ipratropium (Duoneb) 3 ml Q2H RESP THERAPY PRN HHN SHORTNESS OF BREATH; Start 01/05/19 at 08:00 Allopurinol (Zyloprim) 100 mg BID PO Last administered on 01/06/19 08:10; Admin Dose 100 MG; Start 01/05/19 at 09:00 Apixaban (Eliquis) 2.5 mg BID PO Last administered on 01/06/19 08:10; Admin Dose 2.5 MG; Start 01/06/19 at 09:00 Atorvastatin Calcium (Lipitor) 40 mg QHS PO Last administered on 01/05/19 21:45; Admin Dose 40 MG; Start 01/05/19 at 21:00 Bisacodyl (Dulcolax) 10 mg BID PRN PO CONSTIPATION; Start 01/05/19 at 08:00 Famotidine (Pepcid) 20 mg DAILY PO Last administered on 01/06/19 08:10; Admin Dose 20 MG; Start 01/05/19 at 09:00 Ferrous Sulfate (Ferrous Sulfate (Ec)) 325 mg BID PO Last administered on 01/06/19 08:09; Admin Dose 325 MG; Start 01/05/19 at 09:00 Folic Acid (Folic Acid) 1 mg DAILY PO Last administered on 01/06/19 08:10; Admin Dose 1 MG; Start 01/05/19 at 09:00 Insulin Glargine (Lantus) 10 units QHS SC Last administered on 01/05/19 21:55; Admin Dose 10 UNITS; Start 01/05/19 at 21:00 Levothyroxine Sodium (Synthroid) 125 mcg BEFORE BREAKFAST PO Last administered on 01/06/19 06:21; Admin Dose 125 MCG; Start 01/06/19 at 07:00 Metoprolol Tartrate (Lopressor) 50 mg BID PO Last administered on 01/06/19 08:10; Admin Dose 50 MG; Start 01/05/19 at 09:00 Nifedipine (Procardia Xl) 60 mg DAILY PO Last administered on 01/06/19 08:10; Admin Dose 60 MG; Start 01/05/19 at 09:00 Nitroglycerin (Nitroglycerin (Sl Tab) 0.4 Mg) 0.4 tab Q5M PRN SL CHEST PAIN; Start 01/05/19 at 08:00 Polyethylene Glycol (Miralax) 17 gm DAILY PO Last administered on 01/06/19 08:09; Admin Dose 17 GM; Start 01/05/19 at 09:00 Pregabalin (Lyrica) 25 mg TID PO Last administered on 01/06/19 08:09; Admin Dose 25 MG; Start 01/05/19 at 09:00 Terazosin HCl (Hytrin) 10 mg HS PO Last administered on 01/05/19 21:44; Admin Dose 10 MG; Start 01/05/19 at 21:00 Levofloxacin/ Dextrose 100 ml @ 100 mls/hr Q48H IVPB Last administered on 01/05/19 10:09; Admin Dose 100 MLS/HR; Start 01/05/19 at 09:00 Latanoprost (Xalatan) 1 drop HS BOTH EYES Last administered on 01/05/19 21:43; Admin Dose 1 DROP; Start 01/05/19 at 21:00 Nystatin/ Triamcinolone Acetonide (Mycolog Cr) 1 applic BID TOP Last administered on 01/06/19 08:11; Admin Dose 1 APPLIC; Start 01/05/19 at 21:00 Acetaminophen/ Hydrocodone Bitart ([place] (5/325)) 1 tab Q6H PRN PO MODERATE PAIN LEVEL 4-6; Start 01/05/19 at 14:30 Doxycycline Hyclate 100 mg/ Sodium Chloride 250 ml @ 250 mls/hr Q12 IVPB Last administered on 01/06/19 08:09; Admin Dose 250 MLS/HR; Start 01/05/19 at 21:00 Caspofungin 50 mg/ Sodium Chloride 250 ml @ 250 mls/hr Q24H IVPB ; Start 01/06/19 at 15:30; Stop 01/11/19 at 15:29 Nystatin (Nystatin Powder) 1 applic BID TOP Last administered on 01/06/19at 08:11; Admin Dose 1 APPLIC; Start 01/05/19 at 21:00 Magnesium Sulfate 3 gm/Dextrose 106 ml @ 35.333 mls/ hr ONCE ONCE IVPB ; Start 01/06/19 at 10:30; Stop 01/06/19 at 13:29 Diagnostic Test (Pha) (Accu-Chek) 1 ea 02 XX ; Start 01/07/19 at 02:00 Miscellaneous Information 1 ea NOTE XX ; Start 01/06/19 at 10:00 Glucose (Glutose) 15 gm Q15M PRN PO DECREASED GLUCOSE; Start 01/06/19 at 10:00 Glucose (Glutose) 22.5 gm Q15M PRN PO DECREASED GLUCOSE; Start 01/06/19 at 10:00 Dextrose (D50w Syringe) 25 ml Q15M PRN IV DECREASED GLUCOSE; Start 01/06/19 at 10:00 Dextrose (D50w Syringe) 50 ml Q15M PRN IV DECREASED GLUCOSE; Start 01/06/19 at 10:00 Glucagon (Glucagen) 1 mg Q15M PRN IM DECREASED GLUCOSE; Start 01/06/19 at 10:00 Glucose (Glutose) 15 gm Q15M PRN BUCCAL DECREASED GLUCOSE; Start 01/06/19 at 10:00 Allergies: Coded Allergies: Penicillins (Verified Allergy, Severe, shortness of breath, 01/05/19) Sulfa (Sulfonamide Antibiotics) (Verified Allergy, Severe, Shortness of breath, 01/05/19) sulfadiazine (Verified Allergy, Severe, shortness of breath, 01/05/19) Past Surgical History Past Surgical Hx: angioplasty (x2), other ( nuts/bolts in back, carotid artery stent right side) Social History Alcohol Use: none Smoking Status: Former smoker Drug Use: none Exam/Review of Systems Exam Vitals Vital Signs Date Temp Pulse Resp B/P (MAP) Pulse Ox O2 O2 Flow FiO2 Time Delivery Rate 01/06/19 95 08:25 01/06/19 Nasal 2.0 07:30 Cannula 01/06/19 100.0 20 108/57 99 07:27 (74) Intake and Output 01/05/19 01/05/19 01/06/19 1414:59 22:59 06:59 IntakeIntake Total 860 ml 660 ml OutputOutput Total 350 ml BalanceBalance 510 ml 660 ml Exam H EENT exam; supple neck, no JVD. No lymphadenopathy. Midline trachea. No thyromegaly. Patient has no neck masses. Chest exam; diminished breath sounds bilaterally S1-S2 audible no murmurs regular rhythm there is a well-healed sternal scar. Abdomen exam; soft, no organomegaly. Bowel sounds audible. Extremity exam; no peripheral edema. Patient does have changes of rheumatoid arthritis. [employer] exam; no focal deficit. Results Result Diagram: 01/06/19 0555 01/06/19 0555 Results 24hrs Laboratory Tests Test 01/05/19 21:20 01/06/19 05:55 Bedside Glucose 205 White Blood Count 12.3 H Red Blood Count 2.29 L Hemoglobin 6.9 *L Hematocrit 20.9 L Mean Corpuscular Volume 91.3 Mean Corpuscular Hemoglobin 30.1 Mean Corpuscular Hemoglobin Concent 33.0 Red Cell Distribution Width 16.2 H Platelet Count 211 Mean Platelet Volume 10.2 Immature Granulocytes % 0.700 H Neutrophils % 81.2 H Segmented Neutrophils % (Manual) 67 Band Neutrophils % (Manual) 19 H Lymphocytes % 8.2 L Lymphocytes % (Manual) 7 L Reactive Lymphocytes % (Manual) 2 H Monocytes % 9.6 Monocytes % (Manual) 5 Eosinophils % 0.1 Basophils % 0.2 Nucleated Red Blood Cells % 1 H Immature Granulocytes # 0.080 H Neutrophils # 10.0 H Neutrophils # (Manual) 8.5 H Band Neutrophils # 2.3 H Lymphocytes (Manual) 0.8 Lymphocytes # 1.0 Reactive Lymphocytes # 0.2 H Monocytes # 1.2 H Monocytes # (Manual) 0.6 Eosinophils # 0.0 Basophils # 0.0 Nucleated Red Blood Cells # 0.0 Pathologist Review (Hematology) YES Platelet Estimate NORMAL Giant Platelets 2 H Polychromasia 1+ Poikilocytosis 3+ Anisocytosis 2+ Macrocytosis 1+ Target Cells 1+ Sodium Level 136 Potassium Level 4.5 Chloride Level 104 Carbon Dioxide Level 23 Anion Gap 9 Blood Urea Nitrogen 42 H Creatinine 1.95 H Est Glomerular Filtrat Rate mL/min Glucose Level 91 Hemoglobin A1c 5.7 Calcium Level 7.2 L Phosphorus Level 3.0 Magnesium Level 1.2 L Medications Medication Current Medications IV Flush (NS 3 ml) 3 ml PER PROTOCOL IV ; Start 01/05/19 at 08:00 Acetaminophen (Tylenol Tab) 650 mg Q6H PRN PO .PAIN 1-3 OR TEMP Last administered on 01/05/19 21:42; Admin Dose 650 MG; Start 01/05/19 at 08:00 Albuterol/ Ipratropium (Duoneb) 3 ml Q2H RESP THERAPY PRN HHN SHORTNESS OF BREATH; Start 01/05/19 at 08:00 Allopurinol (Zyloprim) 100 mg BID PO Last administered on 01/06/19 08:10; Admin Dose 100 MG; Start 01/05/19 at 09:00 Apixaban (Eliquis) 2.5 mg BID PO Last administered on 01/06/19 08:10; Admin Dose 2.5 MG; Start 01/06/19 at 09:00 Atorvastatin Calcium (Lipitor) 40 mg QHS PO Last administered on 01/05/19 21:45; Admin Dose 40 MG; Start 01/05/19 at 21:00 Bisacodyl (Dulcolax) 10 mg BID PRN PO CONSTIPATION; Start 01/05/19 at 08:00 Famotidine (Pepcid) 20 mg DAILY PO Last administered on 01/06/19 08:10; Admin Dose 20 MG; Start 01/05/19 at 09:00 Ferrous Sulfate (Ferrous Sulfate (Ec)) 325 mg BID PO Last administered on 01/06/19 08:09; Admin Dose 325 MG; Start 01/05/19 at 09:00 Folic Acid (Folic Acid) 1 mg DAILY PO Last administered on 01/06/19 08:10; Admin Dose 1 MG; Start 01/05/19 at 09:00 Insulin Glargine (Lantus) 10 units QHS SC Last administered on 01/05/19 21:55; Admin Dose 10 UNITS; Start 01/05/19 at 21:00 Levothyroxine Sodium (Synthroid) 125 mcg BEFORE BREAKFAST PO Last administered on 01/06/19 06:21; Admin Dose 125 MCG; Start 01/06/19 at 07:00 Metoprolol Tartrate (Lopressor) 50 mg BID PO Last administered on 01/06/19 0 8:10; Admin Dose 50 MG; Start 01/05/19 at 09:00 Nifedipine (Procardia Xl) 60 mg DAILY PO Last administered on 01/06/19 08:10; Admin Dose 60 MG; Start 01/05/19 at 09:00 Nitroglycerin (Nitroglycerin (Sl Tab) 0.4 Mg) 0.4 tab Q5M PRN SL CHEST PAIN; Start 01/05/19 at 08:00 Polyethylene Glycol (Miralax) 17 gm DAILY PO Last administered on 01/06/19 08:09; Admin Dose 17 GM; Start 01/05/19 at 09:00 Pregabalin (Lyrica) 25 mg TID PO Last administered on 01/06/19 08:09; Admin Dose 25 MG; Start 01/05/19 at 09:00 Terazosin HCl (Hytrin) 10 mg HS PO Last administered on 01/05/19 21:44; Admin Dose 10 MG; Start 01/05/19 at 21:00 Levofloxacin/ Dextrose 100 ml @ 100 mls/hr Q48H IVPB Last administered on 01/05/19 10:09; Admin Dose 100 MLS/HR; Start 01/05/19 at 09:00 Latanoprost (Xalatan) 1 drop HS BOTH EYES Last administered on 01/05/19 21:43; Admin Dose 1 DROP; Start 01/05/19 at 21:00 Nystatin/ Triamcinolone Acetonide (Mycolog Cr) 1 applic BID TOP Last administered on 01/06/19 08:11; Admin Dose 1 APPLIC; Start 01/05/19 at 21:00 Acetaminophen/ Hydrocodone Bitart ([place] (5/325)) 1 tab Q6H PRN PO MODERATE PAIN LEVEL 4-6; Start 01/05/19 at 14:30 Doxycycline Hyclate 100 mg/ Sodium Chloride 250 ml @ 250 mls/hr Q12 IVPB Last administered on 01/06/19 08:09; Admin Dose 250 MLS/HR; Start 01/05/19 at 21:00 Caspofungin 50 mg/ Sodium Chloride 250 ml @ 250 mls/hr Q24H IVPB ; Start 01/06/19 at 15:30; Stop 01/11/19 at 15:29 Nystatin (Nystatin Powder) 1 applic BID TOP Last administered on 01/06/19at 08:11; Admin Dose 1 APPLIC; Start 01/05/19 at 21:00 Magnesium Sulfate 3 gm/Dextrose 106 ml @ 35.333 mls/ hr ONCE ONCE IVPB ; Start 01/06/19 at 10:30; Stop 01/06/19 at 13:29 Diagnostic Test (Pha) (Accu-Chek) 1 ea 02 XX ; Start 01/07/19 at 02:00 Miscellaneous Information 1 ea NOTE XX ; Start 01/06/19 at 10:00 Glucose (Glutose) 15 gm Q15M PRN PO DECREASED GLUCOSE; Start 01/06/19 at 10:00 Glucose (Glutose) 22.5 gm Q15M PRN PO DECREASED GLUCOSE; Start 01/06/19 at 10:00 Dextrose (D50w Syringe) 25 ml Q15M PRN IV DECREASED GLUCOSE; Start 01/06/19 at 10:00 Dextrose (D50w Syringe) 50 ml Q15M PRN IV DECREASED GLUCOSE; Start 01/06/19 at 10:00 Glucagon (Glucagen) 1 mg Q15M PRN IM DECREASED GLUCOSE; Start 01/06/19 at 10:00 Glucose (Glutose) 15 gm Q15M PRN BUCCAL DECREASED GLUCOSE; Start 01/06/19 at 10:00 LOVE HAWK Jan 06, 2019 10:49
--- NOTE | 2019-01-06 14:24 | PN ---
Date/Time of Note Date/Time of Note DATE: 01/06/19 TIME: 14:18 Assessment/Plan VTE Prophylaxis Risk score (from Ns)>0 risk: 3 SCD applied (from Ns): Yes Pharmacological prophylaxis: NA/contraindicated Pharm contraindication: low risk/ambulating Lines/Catheters IV [facility]from [facility] Mid Line Assessment/Plan Hospital Course 88-year-old male with 1. Sepsis, more likely 2/2 to pneumonia. lactate are increased to 3.0 and 2.4, Chest Xray showed patchy bilateral perihilar increased interstitial changes, may represent an infectious/inflammatory process versus mild pulmonary vascular congestion. Leucocytosis with left shift of neutrophils. SOB, weakness associated with fevers. Pt had recent pneumonia with fluid overload. Patient also has evidence of scrotal cellulitis. SPOKE radiologist there is likely epididymitis presents too 2. COPD, on oxygen at home 3. Acute on chronic renal failure likely secondary to sepsis, on discharge in November creatinine 1.3, on admission 1.93 4. Hypertension. However currently normal to hypotensive 5. Hyperlipidemia. 6. Hypothyroidism. 7. Normocytic normochromic chronic anemia now with and severe anemia baseline hemoglobin around -7.5-8's she had been on Eliquis due to A. fib 8. Bilateral groin cellulitis more likely associated with mateus, patches in groin and axilla bilaterally. Back rash. Pt was taken a/b recently 9. History of rheumatoid arthritis. 10. Diabetes type 2. 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 Peripheral vascular disease. 13. Chronic a.fib on anticoagulants Assessment/Plan -1 unit of blood today send stool occult blood iron studies B12 folic acid -GI consult was also called for severe anemia -Eliquis should be on hold due to severe anemia -Hold nifedipine due to hypotension -Cardiology consultation, patient has anemia and also history of A. fib -Continue on levofloxacin/doxycycline/caspofungin per ID, will check a UA, sputum culture, cultures have been negative so far -Hold Lasix for now -Nystatin for fungal rash -folLow up with cardiology/pulmonary/GI/ID consults -Renally dose all meds, recheck UA - gi prophylaxis - Result Diagram: 01/06/19 1052 01/06/19 0555 Results 24hrs Laboratory Tests Test 01/05/19 21:20 01/06/19 05:55 01/06/19 10:52 01/06/19 12:05 Bedside Glucose 205 163 White Blood Count 12.3 H Red Blood Count 2.29 L Hemoglobin 6.9 *L 6.5 *L Hematocrit 20.9 L 19.8 L Mean Corpuscular 91.3 Volume Mean Corpuscular 30.1 Hemoglobin Mean Corpuscular 33.0 Hemoglobin Concent Red Cell 16.2 H Distribution Width Platelet Count 211 Mean Platelet Volume 10.2 Immature 0.700 H Granulocytes % Neutrophils % 81.2 H Segmented 67 Neutrophils % (Manual) Band Neutrophils % 19 H (Manual) Lymphocytes % 8.2 L Lymphocytes % 7 L (Manual) Reactive Lymphocytes 2 H % (Manual) Monocytes % 9.6 Monocytes % (Manual) 5 Eosinophils % 0.1 Basophils % 0.2 Nucleated Red Blood 1 H Cells % Immature 0.080 H Granulocytes # Neutrophils # 10.0 H Neutrophils # 8.5 H (Manual) Band Neutrophils # 2.3 H Lymphocytes (Manual) 0.8 Lymphocytes # 1.0 Reactive Lymphocytes 0.2 H # Monocytes # 1.2 H Monocytes # (Manual) 0.6 Eosinophils # 0.0 Basophils # 0.0 Nucleated Red Blood 0.0 Cells # Pathologist YES Review (Hematology) Platelet Estimate NORMAL Giant Platelets 2 H Polychromasia 1+ Poikilocytosis 3+ Anisocytosis 2+ Macrocytosis 1+ Target Cells 1+ Sodium Level 136 Potassium Level 4.5 Chloride Level 104 Carbon Dioxide Level 23 Anion Gap 9 Blood Urea Nitrogen 42 H Creatinine 1.95 H Est Glomerular Filtrat Rate mL/min Glucose Level 91 Hemoglobin A1c 5.7 Calcium Level 7.2 L Phosphorus Level 3.0 Magnesium Level 1.2 L Iron Level < 10 L Total Iron Binding 144 L Capacity Percent Iron Saturation Vitamin B12 Level 347 Folate > 20.0 H Subjective 24 Hr Interval Summary Free Text/Dictation Hemoglobin 6.5 today, no evidence of GI bleeding Exam/Review of Systems Exam Vitals Vital Signs Date Temp Pulse Resp B/P (MAP) Pulse Ox O2 O2 Flow FiO2 Time Delivery Rate 01/06/19 98.8 70 18 118/67 98 12:17 (84) 01/06/19 Nasal 2.0 07:30 Cannula Intake and Output 01/05/19 01/05/19 01/06/19 1515:00 23:00 07:00 IntakeIntake Total 860 ml 660 ml OutputOutput Total 350 ml BalanceBalance 510 ml 660 ml Exam Constitutional: alert, oriented Head: normocephalic ENMT: nl external ears & nose Neck: supple Respiratory: diminished breath sounds, other (on chronic oxygen) Cardiovascular: regular rate and rhythm (a.fib) Gastrointestinal: soft, nl liver, spleen, non-tender, ascites, bowel sounds, distended, firm, hepatomegaly, mass, rebound or guarding, splenomegaly, surgical scars, tender, other Genitourinary - Male: CVA tenderness, other (swollen testicules); No nl penis, No nl scrotum, No discharge Skin: other (skin cellulitis bilateral groin, axilla) Skin changes with scaling Abdominal distention MULTIPLE joint changes Results Results 24hrs Laboratory Tests Test 01/05/19 21:20 01/06/19 05:55 01/06/19 10:52 01/06/19 12:05 Bedside Glucose 205 163 White Blood Count 12.3 H Red Blood Count 2.29 L Hemoglobin 6.9 *L 6.5 *L Hematocrit 20.9 L 19.8 L Mean Corpuscular 91.3 Volume Mean Corpuscular 30.1 Hemoglobin Mean Corpuscular 33.0 Hemoglobin Concent Red Cell 16.2 H Distribution Width Platelet Count 211 Mean Platelet Volume 10.2 Immature 0.700 H Granulocytes % Neutrophils % 81.2 H Segmented 67 Neutrophils % (Manual) Band Neutrophils % 19 H (Manual) Lymphocytes % 8.2 L Lymphocytes % 7 L (Manual) Reactive Lymphocytes 2 H % (Manual) Monocytes % 9.6 Monocytes % (Manual) 5 Eosinophils % 0.1 Basophils % 0.2 Nucleated Red Blood 1 H Cells % Immature 0.080 H Granulocytes # Neutrophils # 10.0 H Neutrophils # 8.5 H (Manual) Band Neutrophils # 2.3 H Lymphocytes (Manual) 0.8 Lymphocytes # 1.0 Reactive Lymphocytes 0.2 H # Monocytes # 1.2 H Monocytes # (Manual) 0.6 Eosinophils # 0.0 Basophils # 0.0 Nucleated Red Blood 0.0 Cells # Pathologist YES Review (Hematology) Platelet Estimate NORMAL Giant Platelets 2 H Polychromasia 1+ Poikilocytosis 3+ Anisocytosis 2+ Macrocytosis 1+ Target Cells 1+ Sodium Level 136 Potassium Level 4.5 Chloride Level 104 Carbon Dioxide Level 23 Anion Gap 9 Blood Urea Nitrogen 42 H Creatinine 1.95 H Est Glomerular Filtrat Rate mL/min Glucose Level 91 Hemoglobin A1c 5.7 Calcium Level 7.2 L Phosphorus Level 3.0 Magnesium Level 1.2 L Iron Level < 10 L Total Iron Binding 144 L Capacity Percent Iron Saturation Vitamin B12 Level 347 Folate > 20.0 H Medications Medication Current Medications IV Flush (NS 3 ml) 3 ml PER PROTOCOL IV ; Start 01/05/19 at 08:00 Acetaminophen (Tylenol Tab) 650 mg Q6H PRN PO .PAIN 1-3 OR TEMP Last administered on 01/05/19 21:42; Admin Dose 650 MG; Start 01/05/19 at 08:00 Albuterol/ Ipratropium (Duoneb) 3 ml Q2H RESP THERAPY PRN HHN SHORTNESS OF BREATH; Start 01/05/19 at 08:00 Atorvastatin Calcium (Lipitor) 40 mg QHS PO Last administered on 01/05/19 21:45; Admin Dose 40 MG; Start 01/05/19 at 21:00 Bisacodyl (Dulcolax) 10 mg BID PRN PO CONSTIPATION; Start 01/05/19 at 08:00 Famotidine (Pepcid) 20 mg DAILY PO Last administered on 01/06/19 08:10; Admin Dose 20 MG; Start 01/05/19 at 09:00 Ferrous Sulfate (Ferrous Sulfate (Ec)) 325 mg BID PO Last administered on 01/06/19 08:09; Admin Dose 325 MG; Start 01/05/19 at 09:00 Folic Acid (Folic Acid) 1 mg DAILY PO Last administered on 01/06/19 08:10; Admin Dose 1 MG; Start 01/05/19 at 09:00 Insulin Glargine (Lantus) 10 units QHS SC Last administered on 01/05/19 21:55; Admin Dose 10 UNITS; Start 01/05/19 at 21:00 Levothyroxine Sodium (Synthroid) 125 mcg BEFORE BREAKFAST PO Last administered on 01/06/19 06:21; Admin Dose 125 MCG; Start 01/06/19 at 07:00 Metoprolol Tartrate (Lopressor) 50 mg BID PO Last administered on 01/06/19 08:10; Admin Dose 50 MG; Start 01/05/19 at 09:00 Nifedipine (Procardia Xl) 60 mg DAILY PO Last administered on 01/06/19 08:10; Admin Dose 60 MG; Start 01/05/19 at 09:00 Nitroglycerin (Nitroglycerin (Sl Tab) 0.4 Mg) 0.4 tab Q5M PRN SL CHEST PAIN; Start 01/05/19 at 08:00 Polyethylene Glycol (Miralax) 17 gm DAILY PO Last administered on 01/06/19 08:09; Admin Dose 17 GM; Start 01/05/19 at 09:00 Pregabalin (Lyrica) 25 mg TID PO Last administered on 01/06/19 12:33; Admin Dose 25 MG; Start 01/05/19 at 09:00 Terazosin HCl (Hytrin) 10 mg HS PO Last administered on 01/05/19 21:44; Admin Dose 10 MG; Start 01/05/19 at 21:00 Levofloxacin/ Dextrose 100 ml @ 100 mls/hr Q48H IVPB Last administered on 01/05/19 10:09; Admin Dose 100 MLS/HR; Start 01/05/19 at 09:00 Latanoprost (Xalatan) 1 drop HS BOTH EYES Last administered on 01/05/19 21:43; Admin Dose 1 DROP; Start 01/05/19 at 21:00 Nystatin/ Triamcinolone Acetonide (Mycolog Cr) 1 applic BID TOP Last administered on 01/06/19 08:11; Admin Dose 1 APPLIC; Start 01/05/19 at 21:00 Acetaminophen/ Hydrocodone Bitart ([place] (5/325)) 1 tab Q6H PRN PO MODERATE PAIN LEVEL 4-6; Start 01/05/19 at 14:30 Doxycycline Hyclate 100 mg/ Sodium Chloride 250 ml @ 250 mls/hr Q12 IVPB Last administered on 01/06/19 08:09; Admin Dose 250 MLS/HR; Start 01/05/19 at 21:00 Caspofungin 50 mg/ Sodium Chloride 250 ml @ 250 mls/hr Q24H IVPB ; Start 01/06/19 at 15:30; Stop 01/11/19 at 15:29 Nystatin (Nystatin Powder) 1 applic BID TOP Last administered on 01/06/19 08:11; Admin Dose 1 APPLIC; Start 01/05/19 at 21:00 Diagnostic Test (Pha) (Accu-Chek) 1 ea 02 XX ; Start 01/07/19 at 02:00 Miscellaneous Information 1 ea NOTE XX ; Start 01/06/19 at 10:00 Glucose (Glutose) 15 gm Q15M PRN PO DECREASED GLUCOSE; Start 01/06/19 at 10:00 Glucose (Glutose) 22.5 gm Q15M PRN PO DECREASED GLUCOSE; Start 01/06/19 at 10:00 Dextrose (D50w Syringe) 25 ml Q15M PRN IV DECREASED GLUCOSE; Start 01/06/19 at 10:00 Dextrose (D50w Syringe) 50 ml Q15M PRN IV DECREASED GLUCOSE; Start 01/06/19 at 10:00 Glucagon (Glucagen) 1 mg Q15M PRN IM DECREASED GLUCOSE; Start 01/06/19 at 10:00 Glucose (Glutose) 15 gm Q15M PRN BUCCAL DECREASED GLUCOSE; Start 01/06/19 at 10:00 IVAN AKHTAR MD Jan 06, 2019 14:24
--- NOTE | 2019-01-06 15:01 | CONS ---
Assessment/Plan Assessment/Plan Hospital Course (Demo Recall) Patient is awake looks comfortable. Had been having low-grade fevers with a T- max of 100.3 T-current 98.8. WBC 12.3 H&H 6.9 and 20.9 platelets 211 neutrophils 81.2 BUN 42 creatinine 1.95 Microbiology: Blood and urine cultures negative Antimicrobials: Cancidas, doxycycline, Levaquin Allergy penicillin, sulfa Physical examination: Obese well-developed chronically ill-appearing - [place] man who is awake in no distress. Head atraumatic normocephalic sclera nonicteric. Neck is supple chest rise symmetrical breath sounds diminished bases. Heart: S1-S2. Abdomen obese soft bowel sounds present extremities without cyanosis Assessment: 1. Sepsis, present on admission 2. Pneumonia 3. 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 Advanced rheumatoid arthritis 5. Chronic atrial fibrillation 6. Diabetes 7. BPH 8. Bilateral groin cellulitis, and empiric antifungal 9. Acute on chronic anemia Plan: Patient remains stable, on appropriate antibiotic regimen, continue anti- aspiration precautions, follow chest x-ray Consultation Date/Type/Reason Admit Date/Time Jan 05, 2019 at 00:47 Initial Consult Date 01/06/19 Type of Consult id Date/Time of Note DATE: 01/06/19 TIME: 15:01 Exam/Review of Systems Exam Vitals Vital Signs Date Temp Pulse Resp B/P (MAP) Pulse Ox O2 O2 Flow FiO2 Time Delivery Rate 01/06/19 98.8 70 18 118/67 98 12:17 (84) 01/06/19 Nasal 2.0 07:30 Cannula Intake and Output 01/05/19 01/05/19 01/06/19 1515:00 23:00 07:00 IntakeIntake Total 860 ml 660 ml OutputOutput Total 350 ml BalanceBalance 510 ml 660 ml Results Result Diagram: 01/06/19 1052 01/06/19 0555 Results 24hrs Laboratory Tests Test 01/05/19 21:20 01/06/19 05:55 01/06/19 10:52 01/06/19 12:05 Bedside Glucose 205 163 White Blood Count 12.3 H Red Blood Count 2.29 L Hemoglobin 6.9 *L 6.5 *L Hematocrit 20.9 L 19.8 L Mean Corpuscular 91.3 Volume Mean Corpuscular 30.1 Hemoglobin Mean Corpuscular 33.0 Hemoglobin Concent Red Cell 16.2 H Distribution Width Platelet Count 211 Mean Platelet Volume 10.2 Immature 0.700 H Granulocytes % Neutrophils % 81.2 H Segmented 67 Neutrophils % (Manual) Band Neutrophils % 19 H (Manual) Lymphocytes % 8.2 L Lymphocytes % 7 L (Manual) Reactive Lymphocytes 2 H % (Manual) Monocytes % 9.6 Monocytes % (Manual) 5 Eosinophils % 0.1 Basophils % 0.2 Nucleated Red Blood 1 H Cells % Immature 0.080 H Granulocytes # Neutrophils # 10.0 H Neutrophils # 8.5 H (Manual) Band Neutrophils # 2.3 H Lymphocytes (Manual) 0.8 Lymphocytes # 1.0 Reactive Lymphocytes 0.2 H # Monocytes # 1.2 H Monocytes # (Manual) 0.6 Eosinophils # 0.0 Basophils # 0.0 Nucleated Red Blood 0.0 Cells # Pathologist YES Review (Hematology) Platelet Estimate NORMAL Giant Platelets 2 H Polychromasia 1+ Poikilocytosis 3+ Anisocytosis 2+ Macrocytosis 1+ Target Cells 1+ Sodium Level 136 Potassium Level 4.5 Chloride Level 104 Carbon Dioxide Level 23 Anion Gap 9 Blood Urea Nitrogen 42 H Creatinine 1.95 H Est Glomerular Filtrat Rate mL/min Glucose Level 91 Hemoglobin A1c 5.7 Calcium Level 7.2 L Phosphorus Level 3.0 Magnesium Level 1.2 L Iron Level < 10 L Total Iron Binding 144 L Capacity Percent Iron Saturation Vitamin B12 Level 347 Folate > 20.0 H Medications Medication Current Medications IV Flush (NS 3 ml) 3 ml PER PROTOCOL IV ; Start 01/05/19 at 08:00 Acetaminophen (Tylenol Tab) 650 mg Q6H PRN PO .PAIN 1-3 OR TEMP Last administered on 01/05/19at 21:42; Admin Dose 650 MG; Start 01/05/19 at 08:00 Albuterol/ Ipratropium (Duoneb) 3 ml Q2H RESP THERAPY PRN HHN SHORTNESS OF BREATH; Start 01/05/19 at 08:00 Atorvastatin Calcium (Lipitor) 40 mg QHS PO Last administered on 01/05/19at 21:45; Admin Dose 40 MG; Start 01/05/19 at 21:00 Bisacodyl (Dulcolax) 10 mg BID PRN PO CONSTIPATION; Start 01/05/19 at 08:00 Famotidine (Pepcid) 20 mg DAILY PO Last administered on 01/06/19 08:10; Admin Dose 20 MG; Start 01/05/19 at 09:00 Ferrous Sulfate (Ferrous Sulfate (Ec)) 325 mg BID PO Last administered on 01/06/19 08:09; Admin Dose 325 MG; Start 01/05/19 at 09:00 Folic Acid (Folic Acid) 1 mg DAILY PO Last administered on 01/06/19 08:10; A dmin Dose 1 MG; Start 01/05/19 at 09:00 Insulin Glargine (Lantus) 10 units QHS SC Last administered on 01/05/19 21:55; Admin Dose 10 UNITS; Start 01/05/19 at 21:00 Levothyroxine Sodium (Synthroid) 125 mcg BEFORE BREAKFAST PO Last administered on 01/06/19 06:21; Admin Dose 125 MCG; Start 01/06/19 at 07:00 Metoprolol Tartrate (Lopressor) 50 mg BID PO Last administered on 01/06/19 08:10; Admin Dose 50 MG; Start 01/05/19 at 09:00 Nitroglycerin (Nitroglycerin (Sl Tab) 0.4 Mg) 0.4 tab Q5M PRN SL CHEST PAIN; Start 01/05/19 at 08:00 Polyethylene Glycol (Miralax) 17 gm DAILY PO Last administered on 01/06/19 08:09; Admin Dose 17 GM; Start 01/05/19 at 09:00 Pregabalin (Lyrica) 25 mg TID PO Last administered on 01/06/19 12:33; Admin Dose 25 MG; Start 01/05/19 at 09:00 Terazosin HCl (Hytrin) 10 mg HS PO Last administered on 01/05/19 21:44; Admin Dose 10 MG; Start 01/05/19 at 21:00 Levofloxacin/ Dextrose 100 ml @ 100 mls/hr Q48H IVPB Last administered on 01/05/19 10:09; Admin Dose 100 MLS/HR; Start 01/05/19 at 09:00 Latanoprost (Xalatan) 1 drop HS BOTH EYES Last administered on 01/05/19 21:43; Admin Dose 1 DROP; Start 01/05/19 at 21:00 Nystatin/ Triamcinolone Acetonide (Mycolog Cr) 1 applic BID TOP Last administered on 01/06/19at 08:11; Admin Dose 1 APPLIC; Start 01/05/19 at 21:00 Acetaminophen/ Hydrocodone Bitart ([place] (5/325)) 1 tab Q6H PRN PO MODERATE PAIN LEVEL 4-6; Start 01/05/19 at 14:30 Doxycycline Hyclate 100 mg/ Sodium Chloride 250 ml @ 250 mls/hr Q12 IVPB Last administered on 01/06/19at 08:09; Admin Dose 250 MLS/HR; Start 01/05/19 at 21:00 Caspofungin 50 mg/ Sodium Chloride 250 ml @ 250 mls/hr Q24H IVPB ; Start 01/06/19 at 15:30; Stop 01/11/19 at 15:29 Nystatin (Nystatin Powder) 1 applic BID TOP Last administered on 01/06/19at 08:11; Admin Dose 1 APPLIC; Start 01/05/19 at 21:00 Diagnostic Test (Pha) (Accu-Chek) 1 ea 02 XX ; Start 01/07/19 at 02:00 Miscellaneous Information 1 ea NOTE XX ; Start 01/06/19 at 10:00 Glucose (Glutose) 15 gm Q15M PRN PO DECREASED GLUCOSE; Start 01/06/19 at 10:00 Glucose (Glutose) 22.5 gm Q15M PRN PO DECREASED GLUCOSE; Start 01/06/19 at 10:00 Dextrose (D50w Syringe) 25 ml Q15M PRN IV DECREASED GLUCOSE; Start 01/06/19 at 10:00 Dextrose (D50w Syringe) 50 ml Q15M PRN IV DECREASED GLUCOSE; Start 01/06/19 at 10:00 Glucagon (Glucagen) 1 mg Q15M PRN IM DECREASED GLUCOSE; Start 01/06/19 at 10:00 Glucose (Glutose) 15 gm Q15M PRN BUCCAL DECREASED GLUCOSE; Start 01/06/19 at 10:00 ULCIAN HARKINS NP Jan 06, 2019 15:01
[2019-01-06] MEDS: CASPOFUNGIN 50 MG in SOD CHLORIDE 0.9% 250 ML IVPB SCH (15:30)
[2019-01-06] MEDS: ACCU-CHEK XX SCH ×2 (17:00→21:00)
[2019-01-06] MEDS: HYDROCODONE/APAP (5/325) TAB PO PRN (19:59)
--- NOTE | 2019-01-06 20:00 | CONS ---
DATE OF ADMISSION: 01/05/2019 DATE OF CONSULTATION: TYPE OF CONSULTATION: Gastroenterology. HISTORY OF PRESENT ILLNESS: The patient is an 88-year-old male with history of pneumonia, rheumatoid arthritis, degenerative joint disease status post coronary artery bypass graft, peripheral vascular disease, who was admitted to the hospital because of scrotal edema, weakness and rash in the groin. He also complained of shortness of breath for the last 2 days. In the ER when he arrived, he had a t emperature of 101. The patient's hematocrit was 23. BUN was 27. Creatinine was 1.66. The patient also was on direct anticoagulant which was stopped. In the ER, the patient received vancomycin and c efepime and was admitted for further management. GI consult was called in for anemia. The patient's hematocrit dropped down from 23 to 19.8. His anemia workup is pending. PAST MEDICAL HISTORY: COPD, hypertension, rheumatoid arthritis, diabetes mellitus, coronary artery b ypass graft, atrial fibrillation. MEDICATIONS: All reviewed. He was on: 1. Aspirin. 2. Allopurinol. 3. Bisacodyl. 4. Plavix. SOCIAL HISTORY: The patient lives with his daughter. Does not smoke or drink. REVIEW OF SYSTEMS: Otherwise negative. PHYSICAL EXAMINATION VITAL SIGNS: Stable. HEENT: Unremarkable. NECK: Supple. No thyromegaly, no lymphadenopathy. CARDIOVASCULAR: No murmur, gallop or click. LUNGS: Clear. ABDOMEN: Benign. EXTREMITIES: No edema. CENTRAL NERVOUS SYSTEMS: Grossly within normal limits. His apixaban that is Eliquis was stopped on 01/06/2019. IMPRESSION: 1. Severe anemia. 2. Atrial fibrillation. 3. Sepsis. 4. Chronic obstructive pulmonary disease. 5. Hypertension. 6. Hypothyroidism. 7. Bilateral groin cellulitis. 8. Rheumatoid arthritis. 9. Diabetes mellitus. 10. Peripheral vascular disease. 11. Atrial fibrillation. PLAN: At this point is to send stool for occult blood. We will do ferritin level and transfuse the patient. Once he is stable, we will proceed with further GI workup. Dictated By: MICHELLE VERDIN MD PJ/NTS Conf#: [id number] DID#: [id number] CC: LILY LAMBERT MD; MICHAEL ALANIS MD; IVAN AKHTAR;*EndCC*
[2019-01-06] MEDS: ATORVASTATIN 40 MG TAB PO SCH (20:05)
[2019-01-06] MEDS: TERAZOSIN 5 MG CAP PO SCH (20:06)
[2019-01-06] MEDS: INSULIN GLARGINE [LANTus] (100 UNITS/ML) SYG SC SCH (20:09)
[2019-01-06] MEDS: LATANOPROST 0.005% 2.5 ML OPH BOTH EYES SCH (20:20)
--- NOTE | 2019-01-06 20:55 | CONS ---
DATE OF ADMISSION: 01/05/2019 DATE OF CONSULTATION: 01/06/2019 TYPE OF CONSULTATION: Cardiology. REASON FOR CONSULTATION: Atrial fibrillation, diastolic congestive heart failure. REQUESTING PHYSICIAN: Yanna Akhtar MD HISTORY OF PRESENT ILLNESS: Mr. Mcintyre is a very pleasant 88-year-old male with history of atrial fib rillation on Eliquis, hypertension, dyslipidemia, coronary artery disease, status post prior coronary bypass graft surgery, diastolic dysfunction by most recent echo, rheumatoid arthritis, degenerative joint disease, hypothyroidism, peripheral arterial disease, renal failure, who had been discharged to outpatient followup in 12/23/2018, who represents with complaints of shortness of breath per patient . Upon arrival in the emergency department, temperature was 101, blood pressure 100/94, respiratory rate 32, pulse 88, satting 93%. The patient's labs revealed a white blood cell count of 19.8, hemogl obin of 7.9 and dropped to 6.5 as of today, platelet count of 199, sodium of 138, potassium 4.5, crea tinine 1.93, BUN of 45, lactic acid of 3, troponin negative, INR of 2.2. The patient's chest x-ray r evealed patchy bilateral perihilar increased interstitial changes, possible pneumonia versus pulmonar y vascular congestion. The patient's electrocardiogram revealed atrial fibrillation, rate of [address]-wave abnormalities. The patient was admitted to floor and since admit to the floor w as monitored on telemetry revealing rate controlled atrial fibrillation. The patient has been placed on baseline metoprolol with antibiotic therapy with doxycycline and caspofungin. The patient at thi s time has ongoing shortness of breath. Denies chest pain, palpitations. PAST MEDICAL HISTORY: As above in HPI. MEDICATIONS CURRENTLY IN HOSPITAL: 1. Caspofungin. 2. Levothyroxine. 3. Lipitor 40 mg at bedtime. 4. Lantus. 5. Terazosin 10 mg at bedtime. 6. Xalatan eyedrops. 7. Doxycycline. 8. [place]. 9. Pepcid. 10. Ferrous sulfate. 11. Folic acid. 12. Metoprolol 50 mg p.o. b.i.d. 13. Lyrica 25 mg t.i.d. 14. Levofloxacin IV q.48. 15. DuoNeb p.r.n. 16. Tylenol p.r.n. 17. Sublingual nitroglycerin p.r.n. ALLERGIES: 1. PENICILLIN. 2. SULFA. 3. SULFADIAZINE. SOCIAL HISTORY: No current tobacco, EtOH or illicit drug use. FAMILY HISTORY: No history of sudden cardiac or early CAD. REVIEW OF SYSTEMS: As above in HPI. CONSTITUTIONAL: Positive fevers, chills. PULMONARY: Mild shortness of breath. CARDIOVASCULAR: Positive shortness of breath , atrial fibrillation by telemetry. GASTROINTESTINAL: No vomiting. GENITOURINARY: Renal failure, acute on chronic. PSYCHIATRIC: No documented psychiatric history. NEUROLOGIC: No documented history of CVA. PHYSICAL EXAMINATION VITAL SIGNS: Temperature of 98, blood pressure 110/71, pulse 78, respiratory rate 18, satting 98%. GENERAL: The patient is alert, awake, in no acute distress. NECK: JVP approximately is 9 cm of water. CHEST: Fair movement throughout with mild decreased breath sounds at bases bilaterally. HEART: Irregularly irregular, I/ systolic murmur, nondisplaced PMI. ABDOMEN: Positive bowel sounds, soft. EXTREMITIES: Trace edema, 1+ pulses bilateral posterior tibial. LABORATORIES: Most recently from today, sodium 136, potassium 4.5, creatinine 1.95, increased from 1 .66, BUN of 42. White blood cell count 12.3, hemoglobin down to 6.9 and then 6.5, platelet count of 211. IMAGING STUDIES: As above in HPI. No further imaging studies for my review at this time. MICROBIOLOGY: Blood cultures are negative to date. IMPRESSION: 1. Atrial fibrillation, currently rate controlled. 2. Possible congestive heart failure by chest x-ray, which will be diastolic, acute on chronic by mo st recent echo with an EF of 60%. 3. Tricuspid regurgitation, moderate by most recent echo. 4. Acute on chronic renal failure. 5. Possible pneumonia. 6. History of coronary artery disease, status post coronary artery bypass graft surgery. 7. Dyslipidemia. 8. Rheumatoid arthritis. 9. Groin cellulitis. 10. Anemia. 11. Diabetes mellitus. RECOMMENDATIONS: 1. At this time, we would maintain the patient on telemetry monitoring to follow rhythm and rate con trol closely. 2. We would continue the patient's baseline beta-yonis for heart rate control. 3. We are holding the patient's Eliquis in the setting of worsening anemia. 4. Continue the patient's antibiotics and follow up all culture data and continue the patient's anti fungals. 5. Continue the patient's current statin therapy, adjust it according to a fasting lipid panel to be checked. 6. Follow the patient's blood sugars closely on Lantus. 7. Complete the patient's rule out for myocardial infarction to ensure the patient's constellation o f symptoms is not a result of or not resulting in acute coronary syndrome such as acute myocardial in farction. 8. Follow the patient's volume status closely. Thank you for allowing me to take part in the care of this patient. I will continue to follow him ve ry closely with you with further recommendations to be made as the [facility]. Dictated By: MARJORIE HERMAN/SUZIE Conf#: [id number] DID#: [id number] CC: LILY LAMBERT MD; MICHAEL ALANIS MD; YANNA AKHTAR;*End*
[2019-01-07] VITALS (13 sets, daily range): BP systolic 100–119; BP diastolic 41–58; PULSE 80–109; RESP 18–20
[2019-01-07] MEDS ORDERED: ACCU-CHEK XX SCH (02:00)
[2019-01-07] MEDS: LEVOTHYROXINE 125 MCG TAB PO SCH (06:10)
[2019-01-07] MEDS: ACCU-CHEK XX SCH ×4 (08:08→21:00)
[2019-01-07] MEDS: DOXYCYCLINE 100 MG in SOD CHLORIDE 0.9% 250 ML IVPB SCH ×2 (08:21→22:15)
[2019-01-07] MEDS: LEVOFLOXACIN 500MG/D5W (PMX) 100 ML IVPB SCH (08:21)
[2019-01-07] MEDS: METOPROLOL 50 MG TAB PO SCH ×2 (08:22→21:54)
[2019-01-07] MEDS: POLYETHYLENE GLYCOL 17 GM PACKET PO SCH (08:22)
[2019-01-07] MEDS: FOLIC ACID 1 MG TAB PO SCH (08:22)
[2019-01-07] MEDS: FAMOTIDINE 20 MG TAB PO SCH (08:22)
[2019-01-07] MEDS: FERROUS SULFATE (EC) 325 MG TAB PO SCH ×2 (08:23→21:52)
[2019-01-07] MEDS: NYSTATIN 30 GM POWDER BTL TOP SCH ×2 (08:23→21:55)
[2019-01-07] MEDS: NYSTATIN/TRIAMCINOLONE 15 GM CR TOP SCH ×2 (08:23→21:55)
[2019-01-07] MEDS: PREGABALIN 25 MG CAP PO SCH ×3 (08:31→21:54)
--- NOTE | 2019-01-07 08:50 | CONS ---
Consult Date/Type/Reason Admit Date/Time Jan 05, 2019 at 00:47 Initial Consult Date 01/06/19 Date/Time of Note DATE: 01/07/19 TIME: 08:47 Subjective NO acute events - HR on high side - before a, meds - will allow for now - anemia likely contributing. ROS: No fever, no chills, no nausea, no vomiting, no diarrhea/constipation No recent weight changes No chest pain, no PND, no orthopnea - mild SOB No dizziness, blurred vision No thirst, no heat or cold intolerance Objective Vitals Vital Signs Date Temp Pulse Resp B/P (MAP) Pulse Ox O2 O2 Flow FiO2 Time Delivery Rate 01/07/19 98.2 102 18 116/58 97 07:43 (77) 01/07/19 Nasal 2.0 07:23 Cannula Intake and Output 01/06/19 01/06/19 01/07/19 1515:00 23:00 07:00 IntakeIntake Total 1600 ml 120 ml BalanceBalance 1600 ml 120 ml Exam General: WN/WD/NAD, AOx 2-3 HEENT: Unicetric/atraumatic/EOMI (follow commands) NECK: JVD elevated, no thyromegaly Lymph: no lymphadenopathy HEART: IRregular with no S3, II/ systolic murmur at apex LUNGS: Coarse sounds ABD: soft, NT, ND, +BS : Intact Neuro: non focal SKIN: chronic changes EXT: trace edema Results/Medications Result Diagram: 01/06/19 1052 01/06/19 0555 Results 24 hrs Laboratory Tests Test 01/06/19 10:52 01/06/19 12:05 01/06/19 16:58 01/06/19 20:04 Hemoglobin 6.5 *L Hematocrit 19.8 L Iron Level < 10 L Total Iron Binding 144 L Capacity Percent Iron Saturation Vitamin B12 Level 347 Folate > 20.0 H Bedside Glucose 163 159 186 Test 01/07/19 01:00 01/07/19 01:53 01/07/19 07:24 01/07/19 07:49 Creatine Kinase 38 Creatine Kinase 4.0 Index Creatinine Kinase MB 1.51 (Mass) Troponin I < 0.012 Bedside Glucose 137 162 White Blood Count Pending Red Blood Count Pending Hemoglobin Pending Hematocrit Pending Mean Corpuscular Pending Volume Mean Corpuscular Pending Hemoglobin Mean Corpuscular Pending Hemoglobin Concent Red Cell Pending Distribution Width Platelet Count Pending Mean Platelet Volume Pending Home Meds Active Scripts Apixaban* (Eliquis*) 5 Mg Tablet, 2.5 MG PO BID for 30 Days, TAB Prov:IVAN AKHTAR MD 12/20/18 Metoprolol Tartrate* (Lopressor*) 50 Mg Tab, 50 MG PO BID for 30 Days, TAB Prov:COOPER CARO 12/20/18 Reported Medications Furosemide* (Lasix*) 20 Mg Tablet, 20 MG PO BID, TAB 01/05/19 Polyethylene Glycol* (Miralax*) 17 Gm Powd.pack, 17 GM PO DAILY, #30 PACKET 12/15/18 Nifedipine* (Nifedipine ER*) 60 Mg Tablet.sa, 60 MG PO DAILY, TAB.SA 12/15/18 Bisacodyl* (Bisacodyl*) 5 Mg Tablet.dr, 10 MG PO BID PRN for CONSTIPATION, TAB 12/15/18 Pregabalin* (Lyrica*) 25 Mg Capsule, 25 MG PO TID, CAP 12/15/18 Bimatoprost* (Lumigan*) 0.01%-5 Ml Opht Drops, 1 DROP BOTH EYES HS, EA 03/02/18 Cetirizine Hcl* (Cetirizine Hcl*) 10 Mg Tablet, 10 MG PO DAILY, #30 TAB 03/02/18 Insulin Glargine* (Lantus*) 100 Unit/Ml Soln, 10 UNIT SC QHS, #1 VIAL 03/02/18 Ergocalciferol (Vitamin D2) (VITAMIN D2) 2,000 Unit Tablet, 2000 UNIT PO DAILY, TAB 03/02/18 Famotidine* (Famotidine*) 20 Mg Tablet, 20 MG PO DAILY, #30 TAB 03/02/18 Ferrous Sulfate* (Ferrous Sulfate*) 325 Mg Tabec, 325 MG PO BID, TAB 03/02/18 Nitroglycerin* (Nitrostat*) 0.4 Mg Tab.subl, 0.4 MG SL Q5MIN PRN for CHEST PAIN, BOTTLE 03/02/18 Terazosin Hcl* (Terazosin Hcl*) 10 Mg Capsule, 10 MG PO HS, CAP 03/02/18 Levothyroxine Sodium* (Levoxyl*) 125 Mcg Tablet, 125 MCG PO BEFORE BREAKFAST, #30 TAB 03/02/18 Allopurinol* (Allopurinol*) 100 Mg Tablet, 100 MG PO BID, TAB 03/02/18 Atorvastatin* (Atorvastatin*) 40 Mg Tablet, 40 MG PO QHS, #30 TAB 03/02/18 Folic Acid* (Folic Acid*) 1 Mg Tablet, 1 MG PO DAILY, TAB 03/02/18 Discontinued Scripts Methylprednisolone* (Medrol* DOSE PACK) 4 Mg/Dose-Pack Tab.ds.pk, 4 MG PO . DIRECTED for 7 Days, PACKET Prov:IVAN AKHTAR MD 12/20/18 Doxycycline Monohydrate (Doxycycline Monohydrate) 100 Mg Capsule, 100 MG PO BID for 5 Days, CAP Prov:COOPER CARO 12/20/18 Levofloxacin* (Levaquin*) 500 Mg Tablet, 500 MG PO DAILY for 5 Days, TAB Prov:COOPER CARO 12/20/18 Medications Current Medications IV Flush (NS 3 ml) 3 ml PER PROTOCOL IV ; Start 01/05/19 at 08:00 Acetaminophen (Tylenol Tab) 650 mg Q6H PRN PO .PAIN 1-3 OR TEMP Last administered on 01/05/19at 21:42; Admin Dose 650 MG; Start 01/05/19 at 08:00 Albuterol/ Ipratropium (Duoneb) 3 ml Q2H RESP THERAPY PRN HHN SHORTNESS OF BREATH; Start 01/05/19 at 08:00 Atorvastatin Calcium (Lipitor) 40 mg QHS PO Last administered on 01/06/19at 20:05; Admin Dose 40 MG; Start 01/05/19 at 21:00 Bisacodyl (Dulcolax) 10 mg BID PRN PO CONSTIPATION; Start 01/05/19 at 08:00 Famotidine (Pepcid) 20 mg DAILY PO Last administered on 01/07/19at 08:22; Admin Dose 20 MG; Start 01/05/19 at 09:00 Ferrous Sulfate (Ferrous Sulfate (Ec)) 325 mg BID PO Last administered on 01/07/19at 08:23; Admin Dose 325 MG; Start 01/05/19 at 09:00 Folic Acid (Folic Acid) 1 mg DAILY PO Last administered on 01/07/19at 08:22; Admin Dose 1 MG; Start 01/05/19 at 09:00 Insulin Glargine (Lantus) 10 units QHS SC Last administered on 01/06/19 20:09; Admin Dose 10 UNITS; Start 01/05/19 at 21:00 Levothyroxine Sodium (Synthroid) 125 mcg BEFORE BREAKFAST PO Last administered on 01/07/19 06:10; Admin Dose 125 MCG; Start 01/06/19 at 07:00 Metoprolol Tartrate (Lopressor) 50 mg BID PO Last administered on 01/07/19 08:22; Admin Dose 50 MG; Start 01/05/19 at 09:00 Nitroglycerin (Nitroglycerin (Sl Tab) 0.4 Mg) 0.4 tab Q5M PRN SL CHEST PAIN; Start 01/05/19 at 08:00 Polyethylene Glycol (Miralax) 17 gm DAILY PO Last administered on 01/07/19 08:22; Admin Dose 17 GM; Start 01/05/19 at 09:00 Pregabalin (Lyrica) 25 mg TID PO Last administered on 01/07/19 08:31; Admin Dose 25 MG; Start 01/05/19 at 09:00 Terazosin HCl (Hytrin) 10 mg HS PO Last administered on 01/06/19 20:06; Admin Dose 10 MG; Start 01/05/19 at 21:00 Levofloxacin/ Dextrose 100 ml @ 100 mls/hr Q48H IVPB Last administered on 01/07/19 08:21; Admin Dose 100 MLS/HR; Start 01/05/19 at 09:00 Latanoprost (Xalatan) 1 drop HS BOTH EYES Last administered on 01/06/19 20:20; Admin Dose 1 DROP; Start 01/05/19 at 21:00 Nystatin/ Triamcinolone Acetonide (Mycolog Cr) 1 applic BID TOP Last administered on 01/07/19 08:23; Admin Dose 1 APPLIC; Start 01/05/19 at 21:00 Acetaminophen/ Hydrocodone Bitart ([place] (5/325)) 1 tab Q6H PRN PO MODERATE PAIN LEVEL 4-6 Last administered on 01/06/19 19:59; Admin Dose 1 TAB; Start 01/05/19 at 14:30 Doxycycline Hyclate 100 mg/ Sodium Chloride 250 ml @ 250 mls/hr Q12 IVPB Last administered on 01/07/19at 08:21; Admin Dose 250 MLS/HR; Start 01/05/19 at 21:00 Caspofungin 50 mg/ Sodium Chloride 250 ml @ 250 mls/hr Q24H IVPB Last administered on 01/06/19at 15:30; Admin Dose 250 MLS/HR; Start 01/06/19 at 15:30; Stop 01/11/19 at 15:29 Nystatin (Nystatin Powder) 1 applic BID TOP Last administered on 01/07/19at 08:23; Admin Dose 1 APPLIC; Start 01/05/19 at 21:00 Diagnostic Test (Pha) (Accu-Chek) 1 ea 02 XX Last administered on 01/07/19at 02:05; Admin Dose 1 EA; Start 01/07/19 at 02:00 Miscellaneous Information 1 ea NOTE XX ; Start 01/06/19 at 10:00 Glucose (Glutose) 15 gm Q15M PRN PO DECREASED GLUCOSE; Start 01/06/19 at 10:00 Glucose (Glutose) 22.5 gm Q15M PRN PO DECREASED GLUCOSE; Start 01/06/19 at 10:00 Dextrose (D50w Syringe) 25 ml Q15M PRN IV DECREASED GLUCOSE; Start 01/06/19 at 10:00 Dextrose (D50w Syringe) 50 ml Q15M PRN IV DECREASED GLUCOSE; Start 01/06/19 at 10:00 Glucagon (Glucagen) 1 mg Q15M PRN IM DECREASED GLUCOSE; Start 01/06/19 at 10:00 Glucose (Glutose) 15 gm Q15M PRN BUCCAL DECREASED GLUCOSE; Start 01/06/19 at 10:00 Diagnostic Test (Pha) (Accu-Chek) 1 ea AC MEALS AND BEDTIME XX Last administered on 01/07/19at 08:08; Admin Dose 1 EA; Start 01/06/19 at 17:25 Assessment/Plan Hospital Course (Demo Recall) 1. Atrial fibrillation, currently rate on high side - will await am meds. 2. Possible congestive heart failure by chest x-ray, which will be diastolic, acute on chronic by most recent echo with an EF of 60%. Stable. 3. Tricuspid regurgitation, moderate by most recent echo. 4. Acute on chronic renal failure - CR 1.95 - avoid nephrotoxic meds - renal follows. 5. Possible pneumonia. 6. History of coronary artery disease, status post coronary artery bypass graft surgery. 7. Dyslipidemia. 8. Rheumatoid arthritis. 9. Groin cellulitis. 10. Anemia- H/H low, blood Rx advised. 11. Diabetes mellitus. 12. SEcondary hypercoag satte - hold Eliquis now with low H/H/ LOU PATINO MD Jan 07, 2019 08:50
[2019-01-07] MEDS: HYDROCODONE/APAP (5/325) TAB PO PRN (10:53)
--- NOTE | 2019-01-07 12:13 | CONS ---
Consult Date/Type/Reason Admit Date/Time Jan 05, 2019 at 00:47 Initial Consult Date 01/06/19 Type of Consult Pulmonary Date/Time of Note DATE: 01/07/19 TIME: 12:11 Subjective Comfortable this morning. No respiratory distress Objective Vital Signs Date Temp Pulse Resp B/P (MAP) Pulse Ox O2 O2 Flow FiO2 Time Delivery Rate 01/07/19 98.2 80 18 103/44 95 11:11 (63) 01/07/19 Nasal 2.0 07:23 Cannula Intake and Output 01/06/19 01/06/19 01/07/19 1515:00 23:00 07:00 IntakeIntake Total 1600 ml 120 ml BalanceBalance 1600 ml 120 ml Exam GENERAL: Elderly -[place] gentleman comfortable at rest no acute distress VITAL SIGNS: per chart NECK: Supple. No JVD or lymphadenopathy. CARDIAC EXAM: S1, S2. No added sounds or murmurs. CHEST: clear bilaterally, No added sounds, rales or wheezes ABDOMEN: Soft, nontender. No guarding or rebound. EXTREMITIES: No cyanosis, clubbing or edema. NEUROLOGIC: Generalized weakness. No focal deficits. Results/Medications Result Diagram: 01/07/1924 01/07/1924 Results 24 hrs Laboratory Tests Test 01/06/19 16:58 01/06/19 20:04 01/06/19 23:30 01/07/19 01:00 Bedside Glucose 159 186 Stool Occult Blood NEGATIVE Creatine Kinase 38 Creatine Kinase 4.0 Index Creatinine Kinase MB 1.51 (Mass) Troponin I < 0.012 Test 01/07/19 01:53 01/07/19 07:24 01/07/19 07:25 01/07/19 07:49 Bedside Glucose 137 162 White Blood Count 14.4 H Red Blood Count 2.63 L Hemoglobin 7.8 L Hematocrit 22.7 L Mean Corpuscular 86.3 Volume Mean Corpuscular 29.7 Hemoglobin Mean Corpuscular 34.4 Hemoglobin Concent Red Cell 16.0 H Distribution Width Platelet Count 249 Mean Platelet Volume 10.3 Immature 0.900 H Granulocytes % Neutrophils % 82.8 H Lymphocytes % 8.5 L Monocytes % 7.6 Eosinophils % 0.1 Basophils % 0.1 Nucleated Red Blood 0.1 H Cells % Immature 0.130 H Granulocytes # Neutrophils # 11.9 H Lymphocytes # 1.2 Monocytes # 1.1 H Eosinophils # 0.0 Basophils # 0.0 Nucleated Red Blood 0.0 Cells # Sodium Level 134 L Potassium Level 5.0 Chloride Level 104 Carbon Dioxide Level 18 L Anion Gap 12 Blood Urea Nitrogen 53 H Creatinine 2.36 H Est Glomerular Filtrat Rate mL/min Glucose Level 130 Calcium Level 7.6 L Phosphorus Level 3.6 Magnesium Level 2.1 Ferritin 955.0 H Creatine Kinase 45 Creatine Kinase 3.8 Index Creatinine Kinase MB 1.70 (Mass) Troponin I < 0.012 Triglycerides Level 60 Cholesterol Level 51 L LDL Cholesterol, 16 Calculated HDL Cholesterol 23 L Cholesterol/HDL 2.2 Ratio Absolute 0.071 Reticulocyte Count Percent Reticulocyte 2.8 H Count Test 01/07/19 11:27 Bedside Glucose 232 H Medications Current Medications IV Flush (NS 3 ml) 3 ml PER PROTOCOL IV ; Start 01/05/19 at 08:00 Acetaminophen (Tylenol Tab) 650 mg Q6H PRN PO .PAIN 1-3 OR TEMP Last administered on 01/05/19at 21:42; Admin Dose 650 MG; Start 01/05/19 at 08:00 Albuterol/ Ipratropium (Duoneb) 3 ml Q2H RESP THERAPY PRN HHN SHORTNESS OF BREATH; Start 01/05/19 at 08:00 Atorvastatin Calcium (Lipitor) 40 mg QHS PO Last administered on 01/06/19at 20:05; Admin Dose 40 MG; Start 01/05/19 at 21:00 Bisacodyl (Dulcolax) 10 mg BID PRN PO CONSTIPATION; Start 01/05/19 at 08:00 Famotidine (Pepcid) 20 mg DAILY PO Last administered on 01/07/19 08:22; Admin Dose 20 MG; Start 01/05/19 at 09:00 Ferrous Sulfate (Ferrous Sulfate (Ec)) 325 mg BID PO Last administered on 01/07/19 08:23; Admin Dose 325 MG; Start 01/05/19 at 09:00 Folic Acid (Folic Acid) 1 mg DAILY PO Last administered on 01/07/19 08:22; Admin Dose 1 MG; Start 01/05/19 at 09:00 Insulin Glargine (Lantus) 10 units QHS SC Last administered on 01/06/19at 20:09; Admin Dose 10 UNITS; Start 01/05/19 at 21:00 Levothyroxine Sodium (Synthroid) 125 mcg BEFORE BREAKFAST PO Last administered on 01/07/19 06:10; Admin Dose 125 MCG; Start 01/06/19 at 07:00 Metoprolol Tartrate (Lopressor) 50 mg BID PO Last administered on 01/07/19 08:22; Admin Dose 50 MG; Start 01/05/19 at 09:00 Nitroglycerin (Nitroglycerin (Sl Tab) 0.4 Mg) 0.4 tab Q5M PRN SL CHEST PAIN; Start 01/05/19 at 08:00 Polyethylene Glycol (Miralax) 17 gm DAILY PO Last administered on 01/07/19 08:22; Admin Dose 17 GM; Start 01/05/19 at 09:00 Pregabalin (Lyrica) 25 mg TID PO Last administered on 01/07/19 08:31; Admin Dose 25 MG; Start 01/05/19 at 09:00 Terazosin HCl (Hytrin) 10 mg HS PO Last administered on 01/06/19 20:06; Admin Dose 10 MG; Start 01/05/19 at 21:00 Levofloxacin/ Dextrose 100 ml @ 100 mls/hr Q48H IVPB Last administered on 01/07/19 08:21; Admin Dose 100 MLS/HR; Start 01/05/19 at 09:00 Latanoprost (Xalatan) 1 drop HS BOTH EYES Last administered on 01/06/19 20:20; Admin Dose 1 DROP; Start 01/05/19 at 21:00 Nystatin/ Triamcinolone Acetonide (Mycolog Cr) 1 applic BID TOP Last administered on 01/07/19 08:23; Admin Dose 1 APPLIC; Start 01/05/19 at 21:00 Acetaminophen/ Hydrocodone Bitart ([place] (5/325)) 1 tab Q6H PRN PO MODERATE PAIN LEVEL 4-6 Last administered on 01/07/19 10:53; Admin Dose 1 TAB; Start 01/05/19 at 14:30 Doxycycline Hyclate 100 mg/ Sodium Chloride 250 ml @ 250 mls/hr Q12 IVPB Last administered on 01/07/19 08:21; Admin Dose 250 MLS/HR; Start 01/05/19 at 21:00 Caspofungin 50 mg/ Sodium Chloride 250 ml @ 250 mls/hr Q24H IVPB Last administered on 01/06/19at 15:30; Admin Dose 250 MLS/HR; Start 01/06/19 at 15:30; Stop 01/11/19 at 15:29 Nystatin (Nystatin Powder) 1 applic BID TOP Last administered on 01/07/19at 08:23; Admin Dose 1 APPLIC; Start 01/05/19 at 21:00 Diagnostic Test (Pha) (Accu-Chek) 1 ea 02 XX Last administered on 01/07/19at 02:05; Admin Dose 1 EA; Start 01/07/19 at 02:00 Miscellaneous Information 1 ea NOTE XX ; Start 01/06/19 at 10:00 Glucose (Glutose) 15 gm Q15M PRN PO DECREASED GLUCOSE; Start 01/06/19 at 10:00 Glucose (Glutose) 22.5 gm Q15M PRN PO DECREASED GLUCOSE; Start 01/06/19 at 10:00 Dextrose (D50w Syringe) 25 ml Q15M PRN IV DECREASED GLUCOSE; Start 01/06/19 at 10:00 Dextrose (D50w Syringe) 50 ml Q15M PRN IV DECREASED GLUCOSE; Start 01/06/19 at 10:00 Glucagon (Glucagen) 1 mg Q15M PRN IM DECREASED GLUCOSE; Start 01/06/19 at 10:00 Glucose (Glutose) 15 gm Q15M PRN BUCCAL DECREASED GLUCOSE; Start 01/06/19 at 10:00 Diagnostic Test (Pha) (Accu-Chek) 1 ea AC MEALS AND BEDTIME XX Last administered on 01/07/19at 11:52; Admin Dose 1 EA; Start 01/06/19 at 17:25 Assessment/Plan Hospital Course (Demo Recall) Assessment 1. Anemia of unclear etiology possibly secondary to renal insufficiency 2. Healthcare associated pneumonia 3. Chronic renal insufficiency and cellulitis 4. History of rheumatoid arthritis 5 history of essential hypertension Plan 1. Continue antibiotics 2. Continue aspiration precautions 3. Consider iron studies and replacement 4. Will likely need [facility] facility DIANA MCRAE MD, [facility] Jan 07, 2019 12:13
--- NOTE | 2019-01-07 12:28 | CONS ---
Assessment/Plan Assessment/Plan Hospital Course (Demo Recall) 88 yo male with cardiac history presents with SOB and anemia Interval hx: WBC 14, HH 7.8/22.7 after one unit PRBC. Retic 2.8, iron less than 10, TIBC low, Ferritin high, NEG FOB. Troponin, CK-MB wnl. No n/v. No abd pain. Tolerating regular diet. 1. Severe anemia. -retic 2.8, Iron less than 10, TIBC low 144, Ferritin high 955, NEG FOB 2. Atrial fibrillation. -off Eliquis in hospital 3. Sepsis. 4. Chronic obstructive pulmonary disease. 5. Hypertension. 6. Hypothyroidism. 7. Bilateral groin cellulitis. 8. Rheumatoid arthritis. 9. Diabetes mellitus. 10. Peripheral vascular disease. PLAN: DC Pepcid, start PPI BID Neg FOB, Monitor HH and for acute GI bleeding Heme onc consult recommended. Pt examined and plan of care discussed with Dr. Frost. Consultation Date/Type/Reason Admit Date/Time Jan 05, 2019 at 00:47 Initial Consult Date 01/06/19 Date/Time of Note DATE: 01/07/19 TIME: 12:14 Exam/Review of Systems Exam Vitals Vital Signs Date Temp Pulse Resp B/P (MAP) Pulse Ox O2 O2 Flow FiO2 Time Delivery Rate 01/07/19 98.2 80 18 103/44 95 11:11 (63) 01/07/19 Nasal 2.0 07:23 Cannula Intake and Output 01/06/19 01/06/19 01/07/19 1515:00 23:00 07:00 IntakeIntake Total 1600 ml 120 ml BalanceBalance 1600 ml 120 ml Constitutional: alert, oriented Psych: no complaints Head: normocephalic Eyes: nl sclera, PERRL Respiratory: other (non labored) Gastrointestinal: soft, non-tender Extremities: normal pulses Neurological: nl mental status Results Result Diagram: 01/07/19 0724 01/07/19 0724 Results 24hrs Laboratory Tests Test 01/06/19 16:58 01/06/19 20:04 01/06/19 23:30 01/07/19 01:00 Bedside Glucose 159 186 Stool Occult Blood NEGATIVE Creatine Kinase 38 Creatine Kinase 4.0 Index Creatinine Kinase MB 1.51 (Mass) Troponin I < 0.012 Test 01/07/19 01:53 01/07/19 07:24 01/07/19 07:25 01/07/19 07:49 Bedside Glucose 137 162 White Blood Count 14.4 H Red Blood Count 2.63 L Hemoglobin 7.8 L Hematocrit 22.7 L Mean Corpuscular 86.3 Volume Mean Corpuscular 29.7 Hemoglobin Mean Corpuscular 34.4 Hemoglobin Concent Red Cell 16.0 H Distribution Width Platelet Count 249 Mean Platelet Volume 10.3 Immature 0.900 H Granulocytes % Neutrophils % 82.8 H Lymphocytes % 8.5 L Monocytes % 7.6 Eosinophils % 0.1 Basophils % 0.1 Nucleated Red Blood 0.1 H Cells % Immature 0.130 H Granulocytes # Neutrophils # 11.9 H Lymphocytes # 1.2 Monocytes # 1.1 H Eosinophils # 0.0 Basophils # 0.0 Nucleated Red Blood 0.0 Cells # Sodium Level 134 L Potassium Level 5.0 Chloride Level 104 Carbon Dioxide Level 18 L Anion Gap 12 Blood Urea Nitrogen 53 H Creatinine 2.36 H Est Glomerular Filtrat Rate mL/min Glucose Level 130 Calcium Level 7.6 L Phosphorus Level 3.6 Magnesium Level 2.1 Ferritin 955.0 H Creatine Kinase 45 Creatine Kinase 3.8 Index Creatinine Kinase MB 1.70 (Mass) Troponin I < 0.012 Triglycerides Level 60 Cholesterol Level 51 L LDL Cholesterol, 16 Calculated HDL Cholesterol 23 L Cholesterol/HDL 2.2 Ratio Absolute 0.071 Reticulocyte Count Percent Reticulocyte 2.8 H Count Test 01/07/19 11:27 Bedside Glucose 232 H Medications Medication Current Medications IV Flush (NS 3 ml) 3 ml PER PROTOCOL IV ; Start 01/05/19 at 08:00 Acetaminophen (Tylenol Tab) 650 mg Q6H PRN PO .PAIN 1-3 OR TEMP Last administered on 01/05/19at 21:42; Admin Dose 650 MG; Start 01/05/19 at 08:00 Albuterol/ Ipratropium (Duoneb) 3 ml Q2H RESP THERAPY PRN HHN SHORTNESS OF BREATH; Start 01/05/19 at 08:00 Atorvastatin Calcium (Lipitor) 40 mg QHS PO Last administered on 01/06/19at 20:05; Admin Dose 40 MG; Start 01/05/19 at 21:00 Bisacodyl (Dulcolax) 10 mg BID PRN PO CONSTIPATION; Start 01/05/19 at 08:00 Famotidine (Pepcid) 20 mg DAILY PO Last administered on 01/07/19 08:22; Admin Dose 20 MG; Start 01/05/19 at 09:00 Ferrous Sulfate (Ferrous Sulfate (Ec)) 325 mg BID PO Last administered on 01/07/19 08:23; Admin Dose 325 MG; Start 01/05/19 at 09:00 Folic Acid (Folic Acid) 1 mg DAILY PO Last administered on 01/07/19 08:22; Admin Dose 1 MG; Start 01/05/19 at 09:00 Insulin Glargine (Lantus) 10 units QHS SC Last administered on 01/06/19 20:09; Admin Dose 10 UNITS; Start 01/05/19 at 21:00 Levothyroxine Sodium (Synthroid) 125 mcg BEFORE BREAKFAST PO Last administered on 01/07/19 06:10; Admin Dose 125 MCG; Start 01/06/19 at 07:00 Metoprolol Tartrate (Lopressor) 50 mg BID PO Last administered on 01/07/19 08:22; Admin Dose 50 MG; Start 01/05/19 at 09:00 Nitroglycerin (Nitroglycerin (Sl Tab) 0.4 Mg) 0.4 tab Q5M PRN SL CHEST PAIN; Start 01/05/19 at 08:00 Polyethylene Glycol (Miralax) 17 gm DAILY PO Last administered on 01/07/19 08:22; Admin Dose 17 GM; Start 01/05/19 at 09:00 Pregabalin (Lyrica) 25 mg TID PO Last administered on 01/07/19 08:31; Admin Dose 25 MG; Start 01/05/19 at 09:00 Terazosin HCl (Hytrin) 10 mg HS PO Last administered on 01/06/19 20:06; Admin Dose 10 MG; Start 01/05/19 at 21:00 Levofloxacin/ Dextrose 100 ml @ 100 mls/hr Q48H IVPB Last administered on 01/07/19 08:21; Admin Dose 100 MLS/HR; Start 01/05/19 at 09:00 Latanoprost (Xalatan) 1 drop HS BOTH EYES Last administered on 01/06/19 20:20; Admin Dose 1 DROP; Start 01/05/19 at 21:00 Nystatin/ Triamcinolone Acetonide (Mycolog Cr) 1 applic BID TOP Last administered on 01/07/19at 08:23; Admin Dose 1 APPLIC; Start 01/05/19 at 21:00 Acetaminophen/ Hydrocodone Bitart ([place] (5/325)) 1 tab Q6H PRN PO MODERATE PAIN LEVEL 4-6 Last administered on 01/07/19at 10:53; Admin Dose 1 TAB; Start 01/05/19 at 14:30 Doxycycline Hyclate 100 mg/ Sodium Chloride 250 ml @ 250 mls/hr Q12 IVPB Last administered on 01/07/19at 08:21; Admin Dose 250 MLS/HR; Start 01/05/19 at 21:00 Caspofungin 50 mg/ Sodium Chloride 250 ml @ 250 mls/hr Q24H IVPB Last administered on 01/06/19at 15:30; Admin Dose 250 MLS/HR; Start 01/06/19 at 15:30; Stop 01/11/19 at 15:29 Nystatin (Nystatin Powder) 1 applic BID TOP Last administered on 01/07/19at 08:23; Admin Dose 1 APPLIC; Start 01/05/19 at 21:00 Diagnostic Test (Pha) (Accu-Chek) 1 ea 02 XX Last administered on 01/07/19at 02:05; Admin Dose 1 EA; Start 01/07/19 at 02:00 Miscellaneous Information 1 ea NOTE XX ; Start 01/06/19 at 10:00 Glucose (Glutose) 15 gm Q15M PRN PO DECREASED GLUCOSE; Start 01/06/19 at 10:00 Glucose (Glutose) 22.5 gm Q15M PRN PO DECREASED GLUCOSE; Start 01/06/19 at 10:00 Dextrose (D50w Syringe) 25 ml Q15M PRN IV DECREASED GLUCOSE; Start 01/06/19 at 10:00 Dextrose (D50w Syringe) 50 ml Q15M PRN IV DECREASED GLUCOSE; Start 01/06/19 at 10:00 Glucagon (Glucagen) 1 mg Q15M PRN IM DECREASED GLUCOSE; Start 01/06/19 at 10:00 Glucose (Glutose) 15 gm Q15M PRN BUCCAL DECREASED GLUCOSE; Start 01/06/19 at 10:00 Diagnostic Test (Pha) (Accu-Chek) 1 ea AC MEALS AND BEDTIME XX Last admin istered on 01/07/19at 11:52; Admin Dose 1 EA; Start 01/06/19 at 17:25 GISELLA VENTURA Jan 07, 2019 12:26
--- NOTE | 2019-01-07 13:20 | CONS ---
Assessment/Plan Assessment/Plan Hospital Course (Demo Recall) Patient is awake complaining of shoulder pain no fevers overnight. WBC 14.4 neutrophils 82.8 Testicular ultrasound revealed right epididymitis no evidence of scrotal abscess or neoplasm Antimicrobials: Cancidas, doxycycline, Levaquin Allergy: Penicillin, sulfa Physical examination: Obese well-developed chronically ill-appearing - [place] man who is awake in no distress. Head atraumatic normocephalic sclera nonicteric. Neck is supple chest rise symmetrical breath sounds diminished bases. Heart: S1-S2. Abdomen obese soft bowel sounds present extremities without cyanosis Assessment: 1. Sepsis, present on admission 2. Pneumonia 3. 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 Advanced rheumatoid arthritis 5. Chronic atrial fibrillation 6. Diabetes 7. BPH 8. Bilateral groin cellulitis 9. Acute on chronic anemia 10. Right epididymitis Plan: Patient remains stable, we are going to order urine culture, continue antibiotics, supportive care Consultation Date/Type/Reason Admit Date/Time Jan 05, 2019 at 00:47 Initial Consult Date 01/06/19 Type of Consult id Date/Time of Note DATE: 01/07/19 TIME: 13:18 Exam/Review of Systems Exam Vitals Vital Signs Date Temp Pulse Resp B/P (MAP) Pulse Ox O2 O2 Flow FiO2 Time Delivery Rate 01/07/19 86 12:18 01/07/19 98.2 18 103/44 95 11:11 (63) 01/07/19 Nasal 2.0 07:23 Cannula Intake and Output 01/06/19 01/06/19 01/07/19 1414:59 22:59 06:59 IntakeIntake Total 1600 ml 120 ml BalanceBalance 1600 ml 120 ml Results Result Diagram: 01/07/19 0724 01/07/19 0724 Results 24hrs Laboratory Tests Test 01/06/19 16:58 01/06/19 20:04 01/06/19 23:30 01/07/19 01:00 Bedside Glucose 159 186 Stool Occult Blood NEGATIVE Creatine Kinase 38 Creatine Kinase 4.0 Index Creatinine Kinase MB 1.51 (Mass) Troponin I < 0.012 Test 01/07/19 01:53 01/07/19 07:24 01/07/19 07:25 01/07/19 07:49 Bedside Glucose 137 162 White Blood Count 14.4 H Red Blood Count 2.63 L Hemoglobin 7.8 L Hematocrit 22.7 L Mean Corpuscular 86.3 Volume Mean Corpuscular 29.7 Hemoglobin Mean Corpuscular 34.4 Hemoglobin Concent Red Cell 16.0 H Distribution Width Platelet Count 249 Mean Platelet Volume 10.3 Immature 0.900 H Granulocytes % Neutrophils % 82.8 H Lymphocytes % 8.5 L Monocytes % 7.6 Eosinophils % 0.1 Basophils % 0.1 Nucleated Red Blood 0.1 H Cells % Immature 0.130 H Granulocytes # Neutrophils # 11.9 H Lymphocytes # 1.2 Monocytes # 1.1 H Eosinophils # 0.0 Basophils # 0.0 Nucleated Red Blood 0.0 Cells # Sodium Level 134 L Potassium Level 5.0 Chloride Level 104 Carbon Dioxide Level 18 L Anion Gap 12 Blood Urea Nitrogen 53 H Creatinine 2.36 H Est Glomerular Filtrat Rate mL/min Glucose Level 130 Calcium Level 7.6 L Phosphorus Level 3.6 Magnesium Level 2.1 Ferritin 955.0 H Creatine Kinase 45 Creatine Kinase 3.8 Index Creatinine Kinase MB 1.70 (Mass) Troponin I < 0.012 Triglycerides Level 60 Cholesterol Level 51 L LDL Cholesterol, 16 Calculated HDL Cholesterol 23 L Cholesterol/HDL 2.2 Ratio Absolute 0.071 Reticulocyte Count Percent Reticulocyte 2.8 H Count Test 01/07/19 11:27 Bedside Glucose 232 H Medications Medication Current Medications IV Flush (NS 3 ml) 3 ml PER PROTOCOL IV ; Start 01/05/19 at 08:00 Acetaminophen (Tylenol Tab) 650 mg Q6H PRN PO .PAIN 1-3 OR TEMP Last administered on 01/05/19at 21:42; Admin Dose 650 MG; Start 01/05/19 at 08:00 Albuterol/ Ipratropium (Duoneb) 3 ml Q2H RESP THERAPY PRN HHN SHORTNESS OF BREATH; Start 01/05/19 at 08:00 Atorvastatin Calcium (Lipitor) 40 mg QHS PO Last administered on 01/06/19at 20:05; Admin Dose 40 MG; Start 01/05/19 at 21:00 Bisacodyl (Dulcolax) 10 mg BID PRN PO CONSTIPATION; Start 01/05/19 at 08:00 Ferrous Sulfate (Ferrous Sulfate (Ec)) 325 mg BID PO Last administered on 01/07/19at 08:23; Admin Dose 325 MG; Start 01/05/19 at 09:00 Folic Acid (Folic Acid) 1 mg DAILY PO Last administered on 01/07/19 08:22; Admin Dose 1 MG; Start 01/05/19 at 09:00 Insulin Glargine (Lantus) 10 units QHS SC Last administered on 01/06/19 20:09; Admin Dose 10 UNITS; Start 01/05/19 at 21:00 Levothyroxine Sodium (Synthroid) 125 mcg BEFORE BREAKFAST PO Last administered on 01/07/19 06:10; Admin Dose 125 MCG; Start 01/06/19 at 07:00 Metoprolol Tartrate (Lopressor) 50 mg BID PO Last administered on 01/07/19 08:22; Admin Dose 50 MG; Start 01/05/19 at 09:00 Nitroglycerin (Nitroglycerin (Sl Tab) 0.4 Mg) 0.4 tab Q5M PRN SL CHEST PAIN; Start 01/05/19 at 08:00 Polyethylene Glycol (Miralax) 17 gm DAILY PO Last administered on 01/07/19 08:22; Admin Dose 17 GM; Start 01/05/19 at 09:00 Pregabalin (Lyrica) 25 mg TID PO Last administered on 01/07/19 08:31; Admin Dose 25 MG; Start 01/05/19 at 09:00 Terazosin HCl (Hytrin) 10 mg HS PO Last administered on 01/06/19 20:06; Admin Dose 10 MG; Start 01/05/19 at 21:00 Levofloxacin/ Dextrose 100 ml @ 100 mls/hr Q48H IVPB Last administered on 01/07/19 08:21; Admin Dose 100 MLS/HR; Start 01/05/19 at 09:00 Latanoprost (Xalatan) 1 drop HS BOTH EYES Last administered on 01/06/19 20:20; Admin Dose 1 DROP; Start 01/05/19 at 21:00 Nystatin/ Triamcinolone Acetonide (Mycolog Cr) 1 applic BID TOP Last administered on 01/07/19 08:23; Admin Dose 1 APPLIC; Start 01/05/19 at 21:00 Acetaminophen/ Hydrocodone Bitart ([place] (5/325)) 1 tab Q6H PRN PO MODERATE PAIN LEVEL 4-6 Last administered on 4/16/19at 10:53; Admin Dose 1 TAB; Start 01/05/19 at 14:30 Doxycycline Hyclate 100 mg/ Sodium Chloride 250 ml @ 250 mls/hr Q12 IVPB Last administered on 01/07/19at 08:21; Admin Dose 250 MLS/HR; Start 01/05/19 at 21:00 Caspofungin 50 mg/ Sodium Chloride 250 ml @ 250 mls/hr Q24H IVPB Last administered on 01/06/19at 15:30; Admin Dose 250 MLS/HR; Start 01/06/19 at 15:30; Stop 01/11/19 at 15:29 Nystatin (Nystatin Powder) 1 applic BID TOP Last administered on 01/07/19 08:23; Admin Dose 1 APPLIC; Start 01/05/19 at 21:00 Diagnostic Test (Pha) (Accu-Chek) 1 ea 02 XX Last administered on 01/07/19at 02:05; Admin Dose 1 EA; Start 01/07/19 at 02:00 Miscellaneous Information 1 ea NOTE XX ; Start 01/06/19 at 10:00 Glucose (Glutose) 15 gm Q15M PRN PO DECREASED GLUCOSE; Start 01/06/19 at 10:00 Glucose (Glutose) 22.5 gm Q15M PRN PO DECREASED GLUCOSE; Start 01/06/19 at 10:00 Dextrose (D50w Syringe) 25 ml Q15M PRN IV DECREASED GLUCOSE; Start 01/06/19 at 10:00 Dextrose (D50w Syringe) 50 ml Q15M PRN IV DECREASED GLUCOSE; Start 01/06/19 at 10:00 Glucagon (Glucagen) 1 mg Q15M PRN IM DECREASED GLUCOSE; Start 01/06/19 at 10:00 Glucose (Glutose) 15 gm Q15M PRN BUCCAL DECREASED GLUCOSE; Start 01/06/19 at 10:00 Diagnostic Test (Pha) (Accu-Chek) 1 ea AC MEALS AND BEDTIME XX Last administered on 01/07/19at 11:52; Admin Dose 1 EA; Start 01/06/19 at 17:25 Pantoprazole (Protonix Iv) 40 mg BID@06,18 IV ; Start 01/07/19 at 18:00 LUCIAN HARKINS NP Jan 07, 2019 13:20
--- NOTE | 2019-01-07 13:34 | PN ---
Date/Time of Note Date/Time of Note DATE: 01/07/19 TIME: 13:34 Assessment/Plan VTE Prophylaxis Risk score (from Ns)>0 risk: 4 SCD applied (from Ns): Yes Pharmacological prophylaxis: NA/contraindicated Pharm contraindication: low risk/ambulating Lines/Catheters IV Catheter Type (from [facility]): Mid Line Assessment/Plan Hospital Course 88-year-old male with 1. Sepsis, more likely 2/2 to pneumonia. lactate are increased to 3.0 and 2.4, Chest Xray showed patchy bilateral perihilar increased interstitial changes, may represent an infectious/inflammatory process versus mild pulmonary vascular congestion. Leucocytosis with left shift of neutrophils. SOB, weakness associated with fevers. Pt had recent pneumonia with fluid overload. Patient also has evidence of scrotal cellulitis. SPOKE radiologist there is likely epididymitis presents too 2. COPD, on oxygen at home 3. Acute on chronic renal failure likely secondary to sepsis, on discharge in November creatinine 1.3, on admission 1.93 4. Hypertension. However currently normal to hypotensive 5. Hyperlipidemia. 6. Hypothyroidism. 7. Normocytic normochromic chronic anemia now with and severe anemia baseline hemoglobin around -7.5-8's she had been on Eliquis due to A. fib 8. Bilateral groin cellulitis more likely associated with mateus, patches in groin and axilla bilaterally. Back rash. Pt was taken a/b recently 9. History of rheumatoid arthritis. 10. Diabetes type 2. 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 Peripheral vascular disease. 13. Chronic a.fib on anticoagulants Assessment/Plan -hb stable, b12 and folate normal, retic count normal ? aocd -Eliquis should be on hold due to severe anemia -Hold nifedipine due to hypotension -Continue on levofloxacin/doxycycline/caspofungin per ID, will check a UA, sputum culture, cultures have been negative so far -Hold Lasix for now -Nystatin for fungal rash -folLow up with cardiology/pulmonary/GI/ID consults -Renally dose all meds, - Abd US to eval for cirrhosis/ascites - ISS - gi prophylaxis - Result Diagram: 01/07/19 0724 01/07/19 0724 Results 24hrs Laboratory Tests Test 01/06/19 16:58 01/06/19 20:04 01/06/19 23:30 01/07/19 01:00 Bedside Glucose 159 186 Stool Occult Blood NEGATIVE Creatine Kinase 38 Creatine Kinase 4.0 Index Creatinine Kinase MB 1.51 (Mass) Troponin I < 0.012 Test 01/07/19 01:53 01/07/19 07:24 01/07/19 07:25 01/07/19 07:49 Bedside Glucose 137 162 White Blood Count 14.4 H Red Blood Count 2.63 L Hemoglobin 7.8 L Hematocrit 22.7 L Mean Corpuscular 86.3 Volume Mean Corpuscular 29.7 Hemoglobin Mean Corpuscular 34.4 Hemoglobin Concent Red Cell 16.0 H Distribution Width Platelet Count 249 Mean Platelet Volume 10.3 Immature 0.900 H Granulocytes % Neutrophils % 82.8 H Lymphocytes % 8.5 L Monocytes % 7.6 Eosinophils % 0.1 Basophils % 0.1 Nucleated Red Blood 0.1 H Cells % Immature 0.130 H Granulocytes # Neutrophils # 11.9 H Lymphocytes # 1.2 Monocytes # 1.1 H Eosinophils # 0.0 Basophils # 0.0 Nucleated Red Blood 0.0 Cells # Sodium Level 134 L Potassium Level 5.0 Chloride Level 104 Carbon Dioxide Level 18 L Anion Gap 12 Blood Urea Nitrogen 53 H Creatinine 2.36 H Est Glomerular Filtrat Rate mL/min Glucose Level 130 Calcium Level 7.6 L Phosphorus Level 3.6 Magnesium Level 2.1 Ferritin 955.0 H Creatine Kinase 45 Creatine Kinase 3.8 Index Creatinine Kinase MB 1.70 (Mass) Troponin I < 0.012 Triglycerides Level 60 Cholesterol Level 51 L LDL Cholesterol, 16 Calculated HDL Cholesterol 23 L Cholesterol/HDL 2.2 Ratio Absolute 0.071 Reticulocyte Count Percent Reticulocyte 2.8 H Count Test 01/07/19 11:27 Bedside Glucose 232 H Subjective 24 Hr Interval Summary Free Text/Dictation Feels slight better today weak fevers subsided Exam/Review of Systems Exam Vitals Vital Signs Date Temp Pulse Resp B/P (MAP) Pulse Ox O2 O2 Flow FiO2 Time Delivery Rate 01/07/19 86 12:18 01/07/19 98.2 18 103/44 95 11:11 (63) 01/07/19 Nasal 2.0 07:23 Cannula Intake and Output 01/06/19 01/06/19 01/07/19 1414:59 22:59 06:59 IntakeIntake Total 1600 ml 120 ml BalanceBalance 1600 ml 120 ml Exam Constitutional: alert, oriented Head: normocephalic ENMT: nl external ears & nose Neck: supple Respiratory: diminished breath sounds, other (on chronic oxygen) Cardiovascular: regular rate and rhythm (a.fib) Gastrointestinal: soft, nl liver, spleen, non-tender, ascites, bowel sounds, distended, firm, hepatomegaly, mass, rebound or guarding, splenomegaly, surgical scars, tender, other Genitourinary - Male: CVA tenderness, other (swollen testicules); No nl penis, No nl scrotum, No discharge Skin: other (skin cellulitis bilateral groin, axilla) Skin changes with scaling Abdominal distention MULTIPLE joint changes Results Results 24hrs Laboratory Tests Test 01/06/19 16:58 01/06/19 20:04 01/06/19 23:30 01/07/19 01:00 Bedside Glucose 159 186 Stool Occult Blood NEGATIVE Creatine Kinase 38 Creatine Kinase 4.0 Index Creatinine Kinase MB 1.51 (Mass) Troponin I < 0.012 Test 01/07/19 01:53 01/07/19 07:24 01/07/19 07:25 01/07/19 07:49 Bedside Glucose 137 162 White Blood Count 14.4 H Red Blood Count 2.63 L Hemoglobin 7.8 L Hematocrit 22.7 L Mean Corpuscular 86.3 Volume Mean Corpuscular 29.7 Hemoglobin Mean Corpuscular 34.4 Hemoglobin Concent Red Cell 16.0 H Distribution Width Platelet Count 249 Mean Platelet Volume 10.3 Immature 0.900 H Granulocytes % Neutrophils % 82.8 H Lymphocytes % 8.5 L Monocytes % 7.6 Eosinophils % 0.1 Basophils % 0.1 Nucleated Red Blood 0.1 H Cells % Immature 0.130 H Granulocytes # Neutrophils # 11.9 H Lymphocytes # 1.2 Monocytes # 1.1 H Eosinophils # 0.0 Basophils # 0.0 Nucleated Red Blood 0.0 Cells # Sodium Level 134 L Potassium Level 5.0 Chloride Level 104 Carbon Dioxide Level 18 L Anion Gap 12 Blood Urea Nitrogen 53 H Creatinine 2.36 H Est Glomerular Filtrat Rate mL/min Glucose Level 130 Calcium Level 7.6 L Phosphorus Level 3.6 Magnesium Level 2.1 Ferritin 955.0 H Creatine Kinase 45 Creatine Kinase 3.8 Index Creatinine Kinase MB 1.70 (Mass) Troponin I < 0.012 Triglycerides Level 60 Cholesterol Level 51 L LDL Cholesterol, 16 Calculated HDL Cholesterol 23 L Cholesterol/HDL 2.2 Ratio Absolute 0.071 Reticulocyte Count Percent Reticulocyte 2.8 H Count Test 01/07/19 11:27 Bedside Glucose 232 H Medications Medication Current Medications IV Flush (NS 3 ml) 3 ml PER PROTOCOL IV ; Start 01/05/19 at 08:00 Acetaminophen (Tylenol Tab) 650 mg Q6H PRN PO .PAIN 1-3 OR TEMP Last administered on 01/05/19at 21:42; Admin Dose 650 MG; Start 01/05/19 at 08:00 Albuterol/ Ipratropium (Duoneb) 3 ml Q2H RESP THERAPY PRN HHN SHORTNESS OF BREATH; Start 01/05/19 at 08:00 Atorvastatin Calcium (Lipitor) 40 mg QHS PO Last administered on 01/06/19at 20:05; Admin Dose 40 MG; Start 01/05/19 at 21:00 Bisacodyl (Dulcolax) 10 mg BID PRN PO CONSTIPATION; Start 01/05/19 at 08:00 Ferrous Sulfate (Ferrous Sulfate (Ec)) 325 mg BID PO Last administered on 01/07/19 08:23; Admin Dose 325 MG; Start 01/05/19 at 09:00 Folic Acid (Folic Acid) 1 mg DAILY PO Last administered on 01/07/19 08:22; Admin Dose 1 MG; Start 01/05/19 at 09:00 Insulin Glargine (Lantus) 10 units QHS SC Last administered on 01/06/19 20:09; Admin Dose 10 UNITS; Start 01/05/19 at 21:00 Levothyroxine Sodium (Synthroid) 125 mcg BEFORE BREAKFAST PO Last administered on 01/07/19 06:10; Admin Dose 125 MCG; Start 01/06/19 at 07:00 Metoprolol Tartrate (Lopressor) 50 mg BID PO Last administered on 01/07/19 08:22; Admin Dose 50 MG; Start 01/05/19 at 09:00 Nitroglycerin (Nitroglycerin (Sl Tab) 0.4 Mg) 0.4 tab Q5M PRN SL CHEST PAIN; Start 01/05/19 at 08:00 Polyethylene Glycol (Miralax) 17 gm DAILY PO Last administered on 01/07/19 08:22; Admin Dose 17 GM; Start 01/05/19 at 09:00 Pregabalin (Lyrica) 25 mg TID PO Last administered on 01/07/19 08:31; Admin Dose 25 MG; Start 01/05/19 at 09:00 Terazosin HCl (Hytrin) 10 mg HS PO Last administered on 01/06/19 20:06; Admin Dose 10 MG; Start 01/05/19 at 21:00 Levofloxacin/ Dextrose 100 ml @ 100 mls/hr Q48H IVPB Last administered on 01/07/19 08:21; Admin Dose 100 MLS/HR; Start 01/05/19 at 09:00 Latanoprost (Xalatan) 1 drop HS BOTH EYES Last administered on 01/06/19 20:20; Admin Dose 1 DROP; Start 01/05/19 at 21:00 Nystatin/ Triamcinolone Acetonide (Mycolog Cr) 1 applic BID TOP Last administered on 01/07/19 08:23; Admin Dose 1 APPLIC; Start 01/05/19 at 21:00 Acetaminophen/ Hydrocodone Bitart ([place] (5/325)) 1 tab Q6H PRN PO MODERATE PAIN LEVEL 4-6 Last administered on 01/07/19 10:53; Admin Dose 1 TAB; Start 01/05/19 at 14:30 Doxycycline Hyclate 100 mg/ Sodium Chloride 250 ml @ 250 mls/hr Q12 IVPB Last administered on 01/07/19 08:21; Admin Dose 250 MLS/HR; Start 01/05/19 at 21:00 Caspofungin 50 mg/ Sodium Chloride 250 ml @ 250 mls/hr Q24H IVPB Last administered on 01/06/19 15:30; Admin Dose 250 MLS/HR; Start 01/06/19 at 15:30; Stop 01/11/19 at 15:29 Nystatin (Nystatin Powder) 1 applic BID TOP Last administered on 01/07/19 08:23; Admin Dose 1 APPLIC; Start 01/05/19 at 21:00 Diagnostic Test (Pha) (Accu-Chek) 1 ea 02 XX Last administered on 01/07/19 02: 05; Admin Dose 1 EA; Start 01/07/19 at 02:00 Miscellaneous Information 1 ea NOTE XX ; Start 01/06/19 at 10:00 Glucose (Glutose) 15 gm Q15M PRN PO DECREASED GLUCOSE; Start 01/06/19 at 10:00 Glucose (Glutose) 22.5 gm Q15M PRN PO DECREASED GLUCOSE; Start 01/06/19 at 10:00 Dextrose (D50w Syringe) 25 ml Q15M PRN IV DECREASED GLUCOSE; Start 01/06/19 at 10:00 Dextrose (D50w Syringe) 50 ml Q15M PRN IV DECREASED GLUCOSE; Start 01/06/19 at 10:00 Glucagon (Glucagen) 1 mg Q15M PRN IM DECREASED GLUCOSE; Start 01/06/19 at 10:00 Glucose (Glutose) 15 gm Q15M PRN BUCCAL DECREASED GLUCOSE; Start 01/06/19 at 10:00 Diagnostic Test (Pha) (Accu-Chek) 1 ea AC MEALS AND BEDTIME XX Last administered on 01/07/19at 11:52; Admin Dose 1 EA; Start 01/06/19 at 17:25 Pantoprazole (Protonix Iv) 40 mg BID@06,18 IV ; Start 01/07/19 at 18:00 IVAN AKHTAR MD Jan 07, 2019 13:34
[2019-01-07] MEDS: CASPOFUNGIN 50 MG in SOD CHLORIDE 0.9% 250 ML IVPB SCH (17:04)
[2019-01-07] MEDS: PANTOPRAZOLE 40 MG INJ IV SCH (17:31)
--- NOTE | 2019-01-07 17:34 | RADRPT ---
Vent Rate: 98 bpm RR Interval: 0 msec OK Interval: 0 msec QRS Duration: 80 msec QT Interval: 342 msec QTC Interval: 436 msec P-R-T [place]: 0 - 53 - 86 degrees Atrial fibrillation Abnormal ECG Electronically Signed By: Chsa Robertson
[2019-01-07] MEDS: INSULIN ASPART [NOVOLOG] 3 ML PEN SC SCH ×2 (17:38→22:29)
[2019-01-07] MEDS: TERAZOSIN 5 MG CAP PO SCH (21:54)
[2019-01-07] MEDS: ATORVASTATIN 40 MG TAB PO SCH (21:54)
[2019-01-07] MEDS: LATANOPROST 0.005% 2.5 ML OPH BOTH EYES SCH (22:08)
[2019-01-07] MEDS: INSULIN GLARGINE [LANTus] (100 UNITS/ML) SYG SC SCH (22:28)
[2019-01-08] VITALS (10 sets, daily range): BP systolic 100–145; BP diastolic 51–63; PULSE 74–87; RESP 18–19
[2019-01-08] MEDS: ACCU-CHEK XX SCH ×5 (02:00→22:00)
[2019-01-08] MEDS: LEVOTHYROXINE 125 MCG TAB PO SCH (06:32)
[2019-01-08] MEDS: PANTOPRAZOLE 40 MG INJ IV SCH (06:32)
[2019-01-08] MEDS: INSULIN ASPART [NOVOLOG] 3 ML PEN SC SCH ×4 (07:55→22:19)
[2019-01-08] MEDS: POLYETHYLENE GLYCOL 17 GM PACKET PO SCH (08:42)
[2019-01-08] MEDS: DOXYCYCLINE 100 MG in SOD CHLORIDE 0.9% 250 ML IVPB SCH (08:43)
[2019-01-08] MEDS: FERROUS SULFATE (EC) 325 MG TAB PO SCH ×2 (08:44→22:18)
[2019-01-08] MEDS: PREGABALIN 25 MG CAP PO SCH ×3 (08:44→22:18)
[2019-01-08] MEDS: METOPROLOL 50 MG TAB PO SCH ×2 (08:44→22:19)
[2019-01-08] MEDS: FOLIC ACID 1 MG TAB PO SCH (08:44)
[2019-01-08] MEDS: NYSTATIN 30 GM POWDER BTL TOP SCH ×2 (08:44→22:20)
[2019-01-08] MEDS: NYSTATIN/TRIAMCINOLONE 15 GM CR TOP SCH ×2 (08:44→22:20)
[2019-01-08] MEDS: HYDROCODONE/APAP (5/325) TAB PO PRN ×2 (11:03→17:17)
--- NOTE | 2019-01-08 11:12 | CONS ---
Assessment/Plan Assessment/Plan Hospital Course (Demo Recall) #Anemia -pt is noted to have severe iron deficiency. will start IV Ferrlecit x 5 days -negative FOBT is noted but patient should likely undergo GI workup given that he has never had a colonoscopy in the past and is so profoundly iron deficient -need to completed the anemia workup at this time -check Vitamin b12 / folate -r/o thyroid dysfunction, check TSH -r/o monoclonal gammopathy, check spep -r/o hemolysis, check LDH, retic , haptoglobin -r/o iron deficiency: check iron panel, ferritin -in case of MDS, will check epo level to see if patient would benefit from procrit #Sepsis - 2/2 to pneumonia. -pt noted to have an elevated lactate -continue Levaquin #COPD -on O2 #Bilateral groin cellulitis -on nystatin Thank you for the opportunity to participate in this patients care A total of 40 minutes of face to face time was spent speaking with the patient, of which greater than 50% was spent in counseling and coordination of care and the detailed question and answer session. Consultation Date/Type/Reason Admit Date/Time Jan 05, 2019 at 00:47 Date of Consultation: Jan 08, 2019 Type of Consult Hematology Reason for Consultation anemia Requesting Provider: IVAN AKHTAR MD Date/Time of Note DATE: 01/08/19 TIME: 11:01 Hx of Present Illness 88 yo male with multiple medical problems including DM, CRF, RA, PVD and chronic afib on Eliquis who presented to [facility] 01/05/19 with severe normocytic anemia and Hg ~7. PT has been transfused 1 unit of PRBCs since admission and his HG continues to drop. PT denies any evidence of GI bleed. FOBT was negative. Although patients iron studies reveal non detectable levels of iron and patient cannot remember every undergoing EGD or colonoscopy. We have been consulted for further workup of patients anemia. Subjective hx not possible: pt non-verbal Constitutional: poor po Eyes: no complaints ENT: no complaints Respiratory: no complaints Cardiovascular: no complaints Gastrointestinal: no complaints Genitourinary: no complaints Musculoskeletal: no complaints Skin: no complaints Endocrine: no complaints Past Medical History Medical History: coronary artery disease, diabetes, high cholesterol, hypertension, renal disease Home Meds Active Scripts Apixaban* (Eliquis*) 5 Mg Tablet, 2.5 MG PO BID for 30 Days, TAB Prov:IVAN AKHTAR MD 12/20/18 Metoprolol Tartrate* (Lopressor*) 50 Mg Tab, 50 MG PO BID for 30 Days, TAB Prov:COOPER CARO 12/20/18 Reported Medications Furosemide* (Lasix*) 20 Mg Tablet, 20 MG PO BID, TAB 01/05/19 Polyethylene Glycol* (Miralax*) 17 Gm Powd.pack, 17 GM PO DAILY, #30 PACKET 12/15/18 Nifedipine* (Nifedipine ER*) 60 Mg Tablet.sa, 60 MG PO DAILY, TAB.SA 12/15/18 Bisacodyl* (Bisacodyl*) 5 Mg Tablet.dr, 10 MG PO BID PRN for CONSTIPATION, TAB 12/15/18 Pregabalin* (Lyrica*) 25 Mg Capsule, 25 MG PO TID, CAP 12/15/18 Bimatoprost* (Lumigan*) 0.01%-5 Ml Opht Drops, 1 DROP BOTH EYES HS, EA 03/02/18 Cetirizine Hcl* (Cetirizine Hcl*) 10 Mg Tablet, 10 MG PO DAILY, #30 TAB 03/02/18 Insulin Glargine* (Lantus*) 100 Unit/Ml Soln, 10 UNIT SC QHS, #1 VIAL 03/02/18 Ergocalciferol (Vitamin D2) (VITAMIN D2) 2,000 Unit Tablet, 2000 UNIT PO DAILY, TAB 03/02/18 Famotidine* (Famotidine*) 20 Mg Tablet, 20 MG PO DAILY, #30 TAB 03/02/18 Ferrous Sulfate* (Ferrous Sulfate*) 325 Mg Tabec, 325 MG PO BID, TAB 03/02/18 Nitroglycerin* (Nitrostat*) 0.4 Mg Tab.subl, 0.4 MG SL Q5MIN PRN for CHEST PAIN, BOTTLE 03/02/18 Terazosin Hcl* (Terazosin Hcl*) 10 Mg Capsule, 10 MG PO HS, CAP 03/02/18 Levothyroxine Sodium* (Levoxyl*) 125 Mcg Tablet, 125 MCG PO BEFORE BREAKFAST, #30 TAB 03/02/18 Allopurinol* (Allopurinol*) 100 Mg Tablet, 100 MG PO BID, TAB 03/02/18 Atorvastatin* (Atorvastatin*) 40 Mg Tablet, 40 MG PO QHS, #30 TAB 03/02/18 Folic Acid* (Folic Acid*) 1 Mg Tablet, 1 MG PO DAILY, TAB 03/02/18 Discontinued Scripts Methylprednisolone* (Medrol* DOSE PACK) 4 Mg/Dose-Pack Tab.ds.pk, 4 MG PO . DIRECTED for 7 Days, PACKET Prov:IVAN AKHTAR MD 12/20/18 Doxycycline Monohydrate (Doxycycline Monohydrate) 100 Mg Capsule, 100 MG PO BID for 5 Days, CAP Prov:COOPER CARO 12/20/18 Levofloxacin* (Levaquin*) 500 Mg Tablet, 500 MG PO DAILY for 5 Days, TAB Prov:COPOER CARO 12/20/18 Medications Current Medications IV Flush (NS 3 ml) 3 ml PER PROTOCOL IV ; Start 01/05/19 at 08:00 Acetaminophen (Tylenol Tab) 650 mg Q6H PRN PO .PAIN 1-3 OR TEMP Last administered on 01/05/19at 21:42; Admin Dose 650 MG; Start 01/05/19 at 08:00 Albuterol/ Ipratropium (Duoneb) 3 ml Q2H RESP THERAPY PRN HHN SHORTNESS OF BREATH; Start 01/05/19 at 08:00 Atorvastatin Calcium (Lipitor) 40 mg QHS PO Last administered on 01/07/19at 21:54; Admin Dose 40 MG; Start 01/05/19 at 21:00 Bisacodyl (Dulcolax) 10 mg BID PRN PO CONSTIPATION; Start 01/05/19 at 08:00 Ferrous Sulfate (Ferrous Sulfate (Ec)) 325 mg BID PO Last administered on 01/08/19 08:44; Admin Dose 325 MG; Start 01/05/19 at 09:00 Folic Acid (Folic Acid) 1 mg DAILY PO Last administered on 01/08/19 08:44; Admin Dose 1 MG; Start 01/05/19 at 09:00 Insulin Glargine (Lantus) 10 units QHS SC Last administered on 01/07/19 22:28; Admin Dose 10 UNITS; Start 01/05/19 at 21:00 Levothyroxine Sodium (Synthroid) 125 mcg BEFORE BREAKFAST PO Last administered on 01/08/19 06:32; Admin Dose 125 MCG; Start 01/06/19 at 07:00 Metoprolol Tartrate (Lopressor) 50 mg BID PO Last administered on 01/08/19 08:44; Admin Dose 50 MG; Start 01/05/19 at 09:00 Nitroglycerin (Nitroglycerin (Sl Tab) 0.4 Mg) 0.4 tab Q5M PRN SL CHEST PAIN; Start 01/05/19 at 08:00 Polyethylene Glycol (Miralax) 17 gm DAILY PO Last administered on 01/08/19 08:42; Admin Dose 17 GM; Start 01/05/19 at 09:00 Pregabalin (Lyrica) 25 mg TID PO Last administered on 01/08/19 08:44; Admin Dose 25 MG; Start 01/05/19 at 09:00 Terazosin HCl (Hytrin) 10 mg HS PO Last administered on 01/07/19 21:54; Admin Dose 10 MG; Start 01/05/19 at 21:00 Levofloxacin/ Dextrose 100 ml @ 100 mls/hr Q48H IVPB Last administered on 01/07/19 08:21; Admin Dose 100 MLS/HR; Start 01/05/19 at 09:00 Latanoprost (Xalatan) 1 drop HS BOTH EYES Last administered on 01/07/19 22:08; Admin Dose 1 DROP; Start 01/05/19 at 21:00 Nystatin/ Triamcinolone Acetonide (Mycolog Cr) 1 applic BID TOP Last administered on 01/08/19 08:44; Admin Dose 1 APPLIC; Start 01/05/19 at 21:00 Acetaminophen/ Hydrocodone Bitart ([place] (5/325)) 1 tab Q6H PRN PO MODERATE TAYA N LEVEL 4-6 Last administered on 01/07/19 10:53; Admin Dose 1 TAB; Start 01/05/19 at 14:30 Doxycycline Hyclate 100 mg/ Sodium Chloride 250 ml @ 250 mls/hr Q12 IVPB Last administered on 01/08/19 08:43; Admin Dose 250 MLS/HR; Start 01/05/19 at 21:00 Caspofungin 50 mg/ Sodium Chloride 250 ml @ 250 mls/hr Q24H IVPB Last administered on 01/07/19 17:04; Admin Dose 250 MLS/HR; Start 01/06/19 at 15:30; Stop 01/11/19 at 15:29 Nystatin (Nystatin Powder) 1 applic BID TOP Last administered on 01/08/19at 08:44; Admin Dose 1 APPLIC; Start 01/05/19 at 21:00 Miscellaneous Information 1 ea NOTE XX ; Start 01/06/19 at 10:00 Glucose (Glutose) 15 gm Q15M PRN PO DECREASED GLUCOSE; Start 01/06/19 at 10:00 Glucose (Glutose) 22.5 gm Q15M PRN PO DECREASED GLUCOSE; Start 01/06/19 at 10:00 Dextrose (D50w Syringe) 25 ml Q15M PRN IV DECREASED GLUCOSE; Start 01/06/19 at 10:00 Dextrose (D50w Syringe) 50 ml Q15M PRN IV DECREASED GLUCOSE; Start 01/06/19 at 10:00 Glucagon (Glucagen) 1 mg Q15M PRN IM DECREASED GLUCOSE; Start 01/06/19 at 10:00 Glucose (Glutose) 15 gm Q15M PRN BUCCAL DECREASED GLUCOSE; Start 01/06/19 at 10:00 Diagnostic Test (Pha) (Accu-Chek) 1 ea AC MEALS AND BEDTIME XX Last administer ed on 01/08/19at 07:25; Admin Dose 1 EA; Start 01/06/19 at 17:25 Pantoprazole (Protonix Iv) 40 mg BID@06,18 IV Last administered on 01/08/19at 06:32; Admin Dose 40 MG; Start 01/07/19 at 18:00 Diagnostic Test (Pha) (Accu-Chek) 1 ea 02 XX ; Start 01/08/19 at 02:00 Insulin Aspart (Novolog Insulin Pen) NOVOLOG *MILD* ALGORITHM WITH MEALS BEDTIME SC Last administered on 01/07/19at 22:29; Admin Dose 1 UNIT; Start 01/07/19 at 17:55 Allergies: Coded Allergies: Penicillins (Verified Allergy, Severe, shortness of breath, 01/05/19) Sulfa (Sulfonamide Antibiotics) (Verified Allergy, Severe, Shortness of breath, 01/05/19) sulfadiazine (Verified Allergy, Severe, shortness of breath, 01/05/19) Past Surgical History Past Surgical Hx: angioplasty (x2), other ( nuts/bolts in back, carotid artery stent right side) Family History Significant Family History: no pertinent family hx Social History Alcohol Use: none Smoking Status: Former smoker Drug Use: none Exam/Review of Systems Exam Vitals Vital Signs Date Temp Pulse Resp B/P (MAP) Pulse Ox O2 O2 Flow FiO2 Time Delivery Rate 01/08/19 80 08:11 01/08/19 98.0 19 115/56 95 07:39 (75) 01/07/19 Nasal 2.0 22:37 Cannula Intake and Output 01/07/19 01/07/19 01/08/19 1515:00 23:00 07:00 IntakeIntake Total 700 ml 400 ml BalanceBalance 700 ml 400 ml Constitutional: alert, oriented, distress, frail Psych: anxiety, depression Head: normocephalic Eyes: nl conjunctiva ENMT: nl external ears & nose Neck: supple Respiratory: clear to auscultation Cardiovascular: regular rate and rhythm Gastrointestinal: soft Musculoskeletal: nl extremities to inspection Results Result Diagram: 01/08/19 0629 01/08/19 0629 Results 24hrs Laboratory Tests Test 01/07/19 11:27 01/07/19 14:27 01/07/19 17:29 01/07/19 18:00 Bedside Glucose 232 H 196 Creatine Kinase 49 Creatine Kinase 4.7 Index Creatinine Kinase MB 2.31 (Mass) Troponin I < 0.012 Urine Color YELLOW Urine Clarity CLOUDY A Urine pH 5.0 Urine Specific 1.016 [place] Urine Ketones TRACE A Urine Nitrite NEGATIVE Urine Bilirubin NEGATIVE Urine Urobilinogen 1+ H Urine Leukocyte 1+ H Esterase Urine Microscopic 4 RBC Urine Microscopic 7 H WBC Urine Squamous MODERATE Epithelial Cells Urine Bacteria FEW A Urine Hemoglobin NEGATIVE Urine Glucose NEGATIVE Urine Total Protein NEGATIVE Test 01/07/19 21:57 01/08/19 02:57 01/08/19 06:29 01/08/19 08:41 Bedside Glucose 187 131 126 White Blood Count 12.8 H Red Blood Count 2.47 L Hemoglobin 7.1 L Hematocrit 21.2 L Mean Corpuscular 85.8 Volume Mean Corpuscular 28.7 L Hemoglobin Mean Corpuscular 33.5 Hemoglobin Concent Red Cell 15.7 H Distribution Width Platelet Count 193 # Mean Platelet Volume 10.0 Immature 1.100 H Granulocytes % Neutrophils % 82.3 H Lymphocytes % 7.8 L Monocytes % 8.5 Eosinophils % 0.2 Basophils % 0.1 Nucleated Red Blood 0.2 H Cells % Immature 0.140 H Granulocytes # Neutrophils # 10.5 H Lymphocytes # 1.0 Monocytes # 1.1 H Eosinophils # 0.0 Basophils # 0.0 Nucleated Red Blood 0.0 Cells # Sodium Level 133 L Potassium Level 5.2 H Chloride Level 102 Carbon Dioxide Level 16 L Anion Gap 15 H Blood Urea Nitrogen 61 H Creatinine 2.62 H Est Glomerular Filtrat Rate mL/min Glucose Level 104 Calcium Level 7.3 L Phosphorus Level 3.7 Magnesium Level 2.0 Medications Medication Current Medications IV Flush (NS 3 ml) 3 ml PER PROTOCOL IV ; Start 01/05/19 at 08:00 Acetaminophen (Tylenol Tab) 650 mg Q6H PRN PO .PAIN 1-3 OR TEMP Last administered on 01/05/19 21:42; Admin Dose 650 MG; Start 01/05/19 at 08:00 Albuterol/ Ipratropium (Duoneb) 3 ml Q2H RESP THERAPY PRN HHN SHORTNESS OF BREATH; Start 01/05/19 at 08:00 Atorvastatin Calcium (Lipitor) 40 mg QHS PO Last administered on 01/07/19 21:54; Admin Dose 40 MG; Start 01/05/19 at 21:00 Bisacodyl (Dulcolax) 10 mg BID PRN PO CONSTIPATION; Start 01/05/19 at 08:00 Ferrous Sulfate (Ferrous Sulfate (Ec)) 325 mg BID PO Last administered on 01/08/19 08:44; Admin Dose 325 MG; Start 01/05/19 at 09:00 Folic Acid (Folic Acid) 1 mg DAILY PO Last administered on 01/08/19 08:44; Admin Dose 1 MG; Start 01/05/19 at 09:00 Insulin Glargine (Lantus) 10 units QHS SC Last administered on 01/07/19 22:28; Admin Dose 10 UNITS; Start 01/05/19 at 21:00 Levothyroxine Sodium (Synthroid) 125 mcg BEFORE BREAKFAST PO Last administered on 01/08/19 06:32; Admin Dose 125 MCG; Start 01/06/19 at 07:00 Metoprolol Tartrate (Lopressor) 50 mg BID PO Last administered on 01/08/19 08:44; Admin Dose 50 MG; Start 01/05/19 at 09:00 Nitroglycerin (Nitroglycerin (Sl Tab) 0.4 Mg) 0.4 tab Q5M PRN SL CHEST PAIN; Start 01/05/19 at 08:00 Polyethylene Glycol (Miralax) 17 gm DAILY PO Last administered on 01/08/19 08:42; Admin Dose 17 GM; Start 01/05/19 at 09:00 Pregabalin (Lyrica) 25 mg TID PO Last administered on 01/08/19 08:44; Admin Dose 25 MG; Start 01/05/19 at 09:00 Terazosin HCl (Hytrin) 10 mg HS PO Last administered on 01/07/19 21:54; Admin Dose 10 MG; Start 01/05/19 at 21:00 Levofloxacin/ Dextrose 100 ml @ 100 mls/hr Q48H IVPB Last administered on 01/07/19 08:21; Admin Dose 100 MLS/HR; Start 01/05/19 at 09:00 Latanoprost (Xalatan) 1 drop HS BOTH EYES Last administered on 01/07/19 22:08; Admin Dose 1 DROP; Start 01/05/19 at 21:00 Nystatin/ Triamcinolone Acetonide (Mycolog Cr) 1 applic BID TOP Last administered on 01/08/19 08:44; Admin Dose 1 APPLIC; Start 01/05/19 at 21:00 Acetaminophen/ Hydrocodone Bitart (Welcome (5/325)) 1 tab Q6H PRN PO MODERATE PAIN LEVEL 4-6 Last administered on 01/07/19 10:53; Admin Dose 1 TAB; Start 01/05/19 at 14:30 Doxycycline Hyclate 100 mg/ Sodium Chloride 250 ml @ 250 mls/hr Q12 IVPB Last administered on 01/08/19 08:43; Admin Dose 250 MLS/HR; Start 01/05/19 at 21:00 Caspofungin 50 mg/ Sodium Chloride 250 ml @ 250 mls/hr Q24H IVPB Last administered on 01/07/19 17:04; Admin Dose 250 MLS/HR; Start 01/06/19 at 15:30; Stop 01/11/19 at 15:29 Nystatin (Nystatin Powder) 1 applic BID TOP Last administered on 01/08/19at 0 8:44; Admin Dose 1 APPLIC; Start 01/05/19 at 21:00 Miscellaneous Information 1 ea NOTE XX ; Start 01/06/19 at 10:00 Glucose (Glutose) 15 gm Q15M PRN PO DECREASED GLUCOSE; Start 01/06/19 at 10:00 Glucose (Glutose) 22.5 gm Q15M PRN PO DECREASED GLUCOSE; Start 01/06/19 at 10:00 Dextrose (D50w Syringe) 25 ml Q15M PRN IV DECREASED GLUCOSE; Start 01/06/19 at 10:00 Dextrose (D50w Syringe) 50 ml Q15M PRN IV DECREASED GLUCOSE; Start 01/06/19 at 10:00 Glucagon (Glucagen) 1 mg Q15M PRN IM DECREASED GLUCOSE; Start 01/06/19 at 10:00 Glucose (Glutose) 15 gm Q15M PRN BUCCAL DECREASED GLUCOSE; Start 01/06/19 at 10:00 Diagnostic Test (Pha) (Accu-Chek) 1 ea AC MEALS AND BEDTIME XX Last administered on 01/08/19at 07:25; Admin Dose 1 EA; Start 01/06/19 at 17:25 Pantoprazole (Protonix Iv) 40 mg BID@06,18 IV Last administered on 01/08/19at 06:32; Admin Dose 40 MG; Start 01/07/19 at 18:00 Diagnostic Test (Pha) (Accu-Chek) 1 ea 02 XX ; Start 01/08/19 at 02:00 Insulin Aspart (Novolog Insulin Pen) NOVOLOG *MILD* ALGORITHM WITH MEALS BEDTIME SC Last administered on 01/07/19at 22:29; Admin Dose 1 UNIT; Start 01/07/19 at 17:55 OREN MARSH M.D. Jan 08, 2019 11:12
--- NOTE | 2019-01-08 13:57 | CONS ---
Assessment/Plan Assessment/Plan Hospital Course (Demo Recall) No acute changes, looks comfortable, no fevers Testicular ultrasound revealed right epididymitis no evidence of scrotal abscess or neoplasm Antimicrobials: Cancidas, doxycycline, Levaquin Allergy: Penicillin, sulfa Physical examination: Obese well-developed chronically ill-appearing - [place] man who is awake in no distress. Head atraumatic normocephalic sclera nonicteric. Neck is supple chest rise symmetrical breath sounds diminished bases. Heart: S1-S2. Abdomen obese soft bowel sounds present extremities without cyanosis Assessment: 1. Sepsis, present on admission 2. Pneumonia 3. 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 Advanced rheumatoid arthritis 5. Chronic atrial fibrillation 6. Diabetes 7. BPH 8. Bilateral groin cellulitis 9. Acute on chronic anemia 10. Right epididymitis Plan: Remains stable, cxr and KUB noted, will continue antibiotics Consultation Date/Type/Reason Admit Date/Time Jan 05, 2019 at 00:47 Initial Consult Date 01/06/19 Type of Consult id Requesting Provider: IVAN AKHTAR MD Date/Time of Note DATE: 01/08/19 TIME: 13:56 Exam/Review of Systems Exam Vitals Vital Signs Date Temp Pulse Resp B/P (MAP) Pulse Ox O2 O2 Flow FiO2 Time Delivery Rate 01/08/19 79 13:19 01/08/19 97.7 19 105/57 96 11:22 (73) 01/08/19 Nasal 3.0 08:10 Cannula Intake and Output 01/07/19 01/07/19 01/08/19 1414:59 22:59 06:59 IntakeIntake Total 700 ml 400 ml BalanceBalance 700 ml 400 ml Results Result Diagram: 01/08/19 0629 01/08/19 0629 Results 24hrs Laboratory Tests Test 01/07/19 14:27 01/07/19 17:29 01/07/19 18:00 01/07/19 21:57 Creatine Kinase 49 Creatine Kinase 4.7 Index Creatinine Kinase MB 2.31 (Mass) Troponin I < 0.012 Bedside Glucose 196 187 Urine Color YELLOW Urine Clarity CLOUDY A Urine pH 5.0 Urine Specific 1.016 [place] Urine Ketones TRACE A Urine Nitrite NEGATIVE Urine Bilirubin NEGATIVE Urine Urobilinogen 1+ H Urine Leukocyte 1+ H Esterase Urine Microscopic 4 RBC Urine Microscopic 7 H WBC Urine Squamous MODERATE Epithelial Cells Urine Bacteria FEW A Urine Hemoglobin NEGATIVE Urine Glucose NEGATIVE Urine Total Protein NEGATIVE Test 01/08/19 02:57 01/08/19 06:29 01/08/19 08:41 01/08/19 12:44 Bedside Glucose 131 126 197 White Blood Count 12.8 H Red Blood Count 2.47 L Hemoglobin 7.1 L Hematocrit 21.2 L Mean Corpuscular 85.8 Volume Mean Corpuscular 28.7 L Hemoglobin Mean Corpuscular 33.5 Hemoglobin Concent Red Cell 15.7 H Distribution Width Platelet Count 193 # Mean Platelet Volume 10.0 Immature 1.100 H Granulocytes % Neutrophils % 82.3 H Lymphocytes % 7.8 L Monocytes % 8.5 Eosinophils % 0.2 Basophils % 0.1 Nucleated Red Blood 0.2 H Cells % Immature 0.140 H Granulocytes # Neutrophils # 10.5 H Lymphocytes # 1.0 Monocytes # 1.1 H Eosinophils # 0.0 Basophils # 0.0 Nucleated Red Blood 0.0 Cells # Sodium Level 133 L Potassium Level 5.2 H Chloride Level 102 Carbon Dioxide Level 16 L Anion Gap 15 H Blood Urea Nitrogen 61 H Creatinine 2.62 H Est Glomerular Filtrat Rate mL/min Glucose Level 104 Calcium Level 7.3 L Phosphorus Level 3.7 Magnesium Level 2.0 Medications Medication Current Medications IV Flush (NS 3 ml) 3 ml PER PROTOCOL IV ; Start 01/05/19 at 08:00 Acetaminophen (Tylenol Tab) 650 mg Q6H PRN PO .PAIN 1-3 OR TEMP Last administered on 01/05/19at 21:42; Admin Dose 650 MG; Start 01/05/19 at 08:00 Albuterol/ Ipratropium (Duoneb) 3 ml Q2H RESP THERAPY PRN HHN SHORTNESS OF BREATH; Start 01/05/19 at 08:00 Atorvastatin Calcium (Lipitor) 40 mg QHS PO Last administered on 01/07/19at 21:54; Admin Dose 40 MG; Start 01/05/19 at 21:00 Bisacodyl (Dulcolax) 10 mg BID PRN PO CONSTIPATION; Start 01/05/19 at 08:00 Ferrous Sulfate (Ferrous Sulfate (Ec)) 325 mg BID PO Last administered on 01/08/19at 08:44; Admin Dose 325 MG; Start 01/05/19 at 09:00 Folic Acid (Folic Acid) 1 mg DAILY PO Last administered on 01/08/19 08:44; Admin Dose 1 MG; Start 01/05/19 at 09:00 Insulin Glargine (Lantus) 10 units QHS SC Last administered on 01/07/19 22:28; Admin Dose 10 UNITS; Start 01/05/19 at 21:00 Levothyroxine Sodium (Synthroid) 125 mcg BEFORE BREAKFAST PO Last administered on 01/08/19 06:32; Admin Dose 125 MCG; Start 01/06/19 at 07:00 Metoprolol Tartrate (Lopressor) 50 mg BID PO Last administered on 01/08/19 08:44; Admin Dose 50 MG; Start 01/05/19 at 09:00 Nitroglycerin (Nitroglycerin (Sl Tab) 0.4 Mg) 0.4 tab Q5M PRN SL CHEST PAIN; Start 01/05/19 at 08:00 Polyethylene Glycol (Miralax) 17 gm DAILY PO Last administered on 01/08/19 08:42; Admin Dose 17 GM; Start 01/05/19 at 09:00 Pregabalin (Lyrica) 25 mg TID PO Last administered on 01/08/19 12:45; Admin Dose 25 MG; Start 01/05/19 at 09:00 Terazosin HCl (Hytrin) 10 mg HS PO Last administered on 01/07/19 21:54; Admin Dose 10 MG; Start 01/05/19 at 21:00 Levofloxacin/ Dextrose 100 ml @ 100 mls/hr Q48H IVPB Last administered on 01/07/19 08:21; Admin Dose 100 MLS/HR; Start 01/05/19 at 09:00 Latanoprost (Xalatan) 1 drop HS BOTH EYES Last administered on 01/07/19 22:08; Admin Dose 1 DROP; Start 01/05/19 at 21:00 Nystatin/ Triamcinolone Acetonide (Mycolog Cr) 1 applic BID TOP Last admini stered on 01/08/19 08:44; Admin Dose 1 APPLIC; Start 01/05/19 at 21:00 Acetaminophen/ Hydrocodone Bitart ([place] (5/325)) 1 tab Q6H PRN PO MODERATE PAIN LEVEL 4-6 Last administered on 01/08/19 11:03; Admin Dose 1 TAB; Start 01/05/19 at 14:30 Doxycycline Hyclate 100 mg/ Sodium Chloride 250 ml @ 250 mls/hr Q12 IVPB Last administered on 01/08/19at 08:43; Admin Dose 250 MLS/HR; Start 01/05/19 at 21:00 Caspofungin 50 mg/ Sodium Chloride 250 ml @ 250 mls/hr Q24H IVPB Last administered on 01/07/19at 17:04; Admin Dose 250 MLS/HR; Start 01/06/19 at 15:30; Stop 01/11/19 at 15:29 Nystatin (Nystatin Powder) 1 applic BID TOP Last administered on 01/08/19at 08:44; Admin Dose 1 APPLIC; Start 01/05/19 at 21:00 Miscellaneous Information 1 ea NOTE XX ; Start 01/06/19 at 10:00 Glucose (Glutose) 15 gm Q15M PRN PO DECREASED GLUCOSE; Start 01/06/19 at 10:00 Glucose (Glutose) 22.5 gm Q15M PRN PO DECREASED GLUCOSE; Start 01/06/19 at 10:00 Dextrose (D50w Syringe) 25 ml Q15M PRN IV DECREASED GLUCOSE; Start 01/06/19 at 10:00 Dextrose (D50w Syringe) 50 ml Q15M PRN IV DECREASED GLUCOSE; Start 01/06/19 at 10:00 Glucagon (Glucagen) 1 mg Q15M PRN IM DECREASED GLUCOSE; Start 01/06/19 at 10:00 Glucose (Glutose) 15 gm Q15M PRN BUCCAL DECREASED GLUCOSE; Start 01/06/19 at 10:00 Diagnostic Test (Pha) (Accu-Chek) 1 ea AC MEALS AND BEDTIME XX Last administered on 01/08/19at 11:20; Admin Dose 1 EA; Start 01/06/19 at 17:25 Pantoprazole (Protonix Iv) 40 mg BID@06,18 IV Last administered on 01/08/19at 06:32; Admin Dose 40 MG; Start 01/07/19 at 18:00 Diagnostic Test (Pha) (Accu-Chek) 1 ea 02 XX ; Start 01/08/19 at 02:00 Insulin Aspart (Novolog Insulin Pen) NOVOLOG *MILD* ALGORITHM WITH MEALS BEDTIME SC Last administered on 01/08/19at 13:07; Admin Dose 2 UNIT; Start 01/07/19 at 17:55 LUCIAN HARKINS NP Jan 08, 2019 13:57
--- NOTE | 2019-01-08 14:27 | CONS ---
Assessment/Plan Assessment/Plan Hospital Course (Demo Recall) IMPRESSION: 1. Atrial fibrillation, currently rate controlled. 2. Possible congestive heart failure by chest x-ray, which will be diastolic, acute on chronic by most recent echo with an EF of 60%. 3. Tricuspid regurgitation, moderate by most recent echo. 4. Acute on chronic renal failure. 5. Possible pneumonia. 6. History of coronary artery disease, status post coronary artery bypass graft surgery. 7. Dyslipidemia. 8. Rheumatoid arthritis. 9. Groin cellulitis. 10. Anemia-worsening requiring transfusions PRBC's 11. Diabetes mellitus. Recc: -Tele -serial ecg's -Continue BB's -Holding anticoagulation in the setting of anemia requiring transfusions -Continue statin -Contnue abx's -pnding endoscopy with GI following Consultation Date/Type/Reason Admit Date/Time Jan 05, 2019 at 00:47 Initial Consult Date 01/08/19 Type of Consult Cardiology Reason for Consultation CHF Requesting Provider: IVAN AKHTAR MD Date/Time of Note DATE: 01/08/19 TIME: 14:24 Exam/Review of Systems Vital Signs Vitals Vital Signs Date Temp Pulse Resp B/P (MAP) Pulse Ox O2 O2 Flow FiO2 Time Delivery Rate 01/08/19 79 13:19 01/08/19 97.7 19 105/57 96 11:22 (73) 01/08/19 Nasal 3.0 08:10 Cannula Intake and Output 01/07/19 01/07/19 01/08/19 1515:00 23:00 07:00 IntakeIntake Total 700 ml 400 ml BalanceBalance 700 ml 400 ml Exam Exam Review of Systems: CONSTITUTIONAL: No fevers, chills. PULMONARY: No sob CARDIOVASCULAR: No chest pain/palpitations GASTROINTESTINAL: No nausea/vomiting. GENITOURINARY: No hematuria/dysuria. MUSCULOSKELETAL: No myagias/arthalgias. PSYCHIATRIC: The patient denies depression. NEUROLOGIC: No weakness Constitutional: alert Psych: no complaints Head: normocephalic ENMT: mucosa pink and moist Neck: supple, jvd (9 cm water) Respiratory: diminished breath sounds (at bases/B) Cardiovascular: irregular rhythm Gastrointestinal: soft, non-tender Musculoskeletal: muscle tone (norml) Extremities: edema (none) Neurological: other (No focal deficits) Labs Result Diagram: 01/08/19 0629 01/08/19 0629 Results 24hrs Laboratory Tests Test 01/07/19 14:27 01/07/19 17:29 01/07/19 18:00 01/07/19 21:57 Creatine Kinase 49 Creatine Kinase 4.7 Index Creatinine Kinase MB 2.31 (Mass) Troponin I < 0.012 Bedside Glucose 196 187 Urine Color YELLOW Urine Clarity CLOUDY A Urine pH 5.0 Urine Specific 1.016 [place] Urine Ketones TRACE A Urine Nitrite NEGATIVE Urine Bilirubin NEGATIVE Urine Urobilinogen 1+ H Urine Leukocyte 1+ H Esterase Urine Microscopic 4 RBC Urine Microscopic 7 H WBC Urine Squamous MODERATE Epithelial Cells Urine Bacteria FEW A Urine Hemoglobin NEGATIVE Urine Glucose NEGATIVE Urine Total Protein NEGATIVE Test 01/08/19 02:57 01/08/19 06:29 01/08/19 08:41 01/08/19 12:44 Bedside Glucose 131 126 197 White Blood Count 12.8 H Red Blood Count 2.47 L Hemoglobin 7.1 L Hematocrit 21.2 L Mean Corpuscular 85.8 Volume Mean Corpuscular 28.7 L Hemoglobin Mean Corpuscular 33.5 Hemoglobin Concent Red Cell 15.7 H Distribution Width Platelet Count 193 # Mean Platelet Volume 10.0 Immature 1.100 H Granulocytes % Neutrophils % 82.3 H Lymphocytes % 7.8 L Monocytes % 8.5 Eosinophils % 0.2 Basophils % 0.1 Nucleated Red Blood 0.2 H Cells % Immature 0.140 H Granulocytes # Neutrophils # 10.5 H Lymphocytes # 1.0 Monocytes # 1.1 H Eosinophils # 0.0 Basophils # 0.0 Nucleated Red Blood 0.0 Cells # Sodium Level 133 L Potassium Level 5.2 H Chloride Level 102 Carbon Dioxide Level 16 L Anion Gap 15 H Blood Urea Nitrogen 61 H Creatinine 2.62 H Est Glomerular Filtrat Rate mL/min Glucose Level 104 Calcium Level 7.3 L Phosphorus Level 3.7 Magnesium Level 2.0 Medications Medications Current Medications IV Flush (NS 3 ml) 3 ml PER PROTOCOL IV ; Start 01/05/19 at 08:00 Acetaminophen (Tylenol Tab) 650 mg Q6H PRN PO .PAIN 1-3 OR TEMP Last administered on 01/05/19at 21:42; Admin Dose 650 MG; Start 01/05/19 at 08:00 Albuterol/ Ipratropium (Duoneb) 3 ml Q2H RESP THERAPY PRN HHN SHORTNESS OF BREATH; Start 01/05/19 at 08:00 Atorvastatin Calcium (Lipitor) 40 mg QHS PO Last administered on 01/07/19 21:54; Admin Dose 40 MG; Start 01/05/19 at 21:00 Bisacodyl (Dulcolax) 10 mg BID PRN PO CONSTIPATION; Start 01/05/19 at 08:00 Ferrous Sulfate (Ferrous Sulfate (Ec)) 325 mg BID PO Last administered on 01/08/19 08:44; Admin Dose 325 MG; Start 01/05/19 at 09:00 Folic Acid (Folic Acid) 1 mg DAILY PO Last administered on 01/08/19 08:44; Admin Dose 1 MG; Start 01/05/19 at 09:00 Insulin Glargine (Lantus) 10 units QHS SC Last administered on 01/07/19 22:28; Admin Dose 10 UNITS; Start 01/05/19 at 21:00 Levothyroxine Sodium (Synthroid) 125 mcg BEFORE BREAKFAST PO Last administered on 01/08/19 06:32; Admin Dose 125 MCG; Start 01/06/19 at 07:00 Metoprolol Tartrate (Lopressor) 50 mg BID PO Last administered on 01/08/19 08:44; Admin Dose 50 MG; Start 01/05/19 at 09:00 Nitroglycerin (Nitroglycerin (Sl Tab) 0.4 Mg) 0.4 tab Q5M PRN SL CHEST PAIN; Start 01/05/19 at 08:00 Polyethylene Glycol (Miralax) 17 gm DAILY PO Last administered on 01/08/19 08:42; Admin Dose 17 GM; Start 01/05/19 at 09:00 Pregabalin (Lyrica) 25 mg TID PO Last administered on 01/08/19 12:45; Admin Dose 25 MG; Start 01/05/19 at 09:00 Terazosin HCl (Hytrin) 10 mg HS PO Last administered on 01/07/19 21:54; Admin Dose 10 MG; Start 01/05/19 at 21:00 Levofloxacin/ Dextrose 100 ml @ 100 mls/hr Q48H IVPB Last administered on 01/07/19 08:21; Admin Dose 100 MLS/HR; Start 01/05/19 at 09:00 Latanoprost (Xalatan) 1 drop HS BOTH EYES Last administered on 01/07/19at 22:08; Admin Dose 1 DROP; Start 01/05/19 at 21:00 Nystatin/ Triamcinolone Acetonide (Mycolog Cr) 1 applic BID TOP Last administered on 01/08/19at 08:44; Admin Dose 1 APPLIC; Start 01/05/19 at 21:00 Acetaminophen/ Hydrocodone Bitart ([place] (5/325)) 1 tab Q6H PRN PO MODERATE PAIN LEVEL 4-6 Last administered on 01/08/19at 11:03; Admin Dose 1 TAB; Start 01/05/19 at 14:30 Doxycycline Hyclate 100 mg/ Sodium Chloride 250 ml @ 250 mls/hr Q12 IVPB Last administered on 01/08/19at 08:43; Admin Dose 250 MLS/HR; Start 01/05/19 at 21:00 Caspofungin 50 mg/ Sodium Chloride 250 ml @ 250 mls/hr Q24H IVPB Last administered on 01/07/19at 17:04; Admin Dose 250 MLS/HR; Start 01/06/19 at 15:30; Stop 01/11/19 at 15:29 Nystatin (Nystatin Powder) 1 applic BID TOP Last administered on 01/08/19at 08:44; Admin Dose 1 APPLIC; Start 01/05/19 at 21:00 Miscellaneous Information 1 ea NOTE XX ; Start 01/06/19 at 10:00 Glucose (Glutose) 15 gm Q15M PRN PO DECREASED GLUCOSE; Start 01/06/19 at 10:00 Glucose (Glutose) 22.5 gm Q15M PRN PO DECREASED GLUCOSE; Start 01/06/19 at 10:00 Dextrose (D50w Syringe) 25 ml Q15M PRN IV DECREASED GLUCOSE; Start 01/06/19 at 10:00 Dextrose (D50w Syringe) 50 ml Q15M PRN IV DECREASED GLUCOSE; Start 01/06/19 at 10:00 Glucagon (Glucagen) 1 mg Q15M PRN IM DECREASED GLUCOSE; Start 01/06/19 at 10:00 Glucose (Glutose) 15 gm Q15M PRN BUCCAL DECREASED GLUCOSE; Start 01/06/19 at 10:00 Diagnostic Test (Pha) (Accu-Chek) 1 ea AC MEALS AND BEDTIME XX Last administered on 01/08/19at 11:20; Admin Dose 1 EA; Start 01/06/19 at 17:25 Pantoprazole (Protonix Iv) 40 mg BID@06,18 IV Last administered on 01/08/19at 06:32; Admin Dose 40 MG; Start 01/07/19 at 18:00 Diagnostic Test (Pha) (Accu-Chek) 1 ea 02 XX ; Start 01/08/19 at 02:00 Insulin Aspart (Novolog Insulin Pen) NOVOLOG *MILD* ALGORITHM WITH MEALS BEDTIME SC Last administered on 01/08/19at 13:07; Admin Dose 2 UNIT; Start 01/07/19 at 17:55 MARJORIE JAIN Jan 08, 2019 14:27
--- NOTE | 2019-01-08 15:19 | PN ---
Date/Time of Note Date/Time of Note DATE: 01/08/19 TIME: 15:14 Assessment/Plan VTE Prophylaxis Risk score (from Nsg)>0 risk: 8 SCD applied (from Ns): Yes Pharmacological prophylaxis: NA/contraindicated Pharm contraindication: low risk/ambulating Lines/Catheters IV Catheter Type (from Nrsg): Mid Line Urinary Cath still in place: No Assessment/Plan Hospital Course 88-year-old male with 1. Sepsis, more likely 2/2 to pneumonia. lactate are increased to 3.0 and 2.4, Chest Xray showed patchy bilateral perihilar increased interstitial changes, may represent an infectious/inflammatory process versus mild pulmonary vascular congestion. Leucocytosis with left shift of neutrophils. SOB, weakness associated with fevers. Pt had recent pneumonia with fluid overload. Patient also has evidence of scrotal cellulitis. Final report neg for epididmytits 2. COPD, on oxygen at home 3. Acute on chronic renal failure likely secondary to sepsis, on discharge in November creatinine 1.3, on admission 1.93 now worseing kidney function due to AIN vs obstruction 4. Hypertension. However currently normal to hypotensive 5. Hyperlipidemia. 6. Hypothyroidism. 7. Normocytic normochromic chronic anemia now with and severe anemia baseline hemoglobin around -7.5-8's she had been on Eliquis due to A. fib, anemia wup in progress 8. Bilateral groin cellulitis more likely associated with mateus, patches in groin and axilla bilaterally. Back rash. Pt was taken a/b recently 9. History of rheumatoid arthritis. 10. Diabetes type 2. 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 Peripheral vascular disease. 13. Chronic a.fib on anticoagulants held Assessment/Plan - bladder scan> rinaldi if needed - dec PPI due to risk of AIN, renally dose all meds - UA send -Eliquis should be on hold due to severe anemia -Hold nifedipine due to hypotension -Continue on levofloxacin/doxycycline/caspofungin per ID - ? EGD/ Colonoscopy for anemia -Nystatin for fungal rash -folLow up with cardiology/pulmonary/GI/ID consults -Renally dose all meds, - Abd US neg - ISS, cw lantus 10 - gi prophylaxis Will transfer to ARU when medically optimised Result Diagram: 01/08/1962801/08/19628 Results 24hrs Laboratory Tests Test 01/07/19 17:29 01/07/19 18:00 01/07/19 21:57 01/08/19 02:57 Bedside Glucose 196 187 131 Urine Color YELLOW Urine Clarity CLOUDY A Urine pH 5.0 Urine Specific 1.016 [place] Urine Ketones TRACE A Urine Nitrite NEGATIVE Urine Bilirubin NEGATIVE Urine Urobilinogen 1+ H Urine Leukocyte 1+ H Esterase Urine Microscopic 4 RBC Urine Microscopic 7 H WBC Urine Squamous MODERATE Epithelial Cells Urine Bacteria FEW A Urine Hemoglobin NEGATIVE Urine Glucose NEGATIVE Urine Total Protein NEGATIVE Test 01/08/19 06:29 01/08/19 08:41 01/08/19 12:44 White Blood Count 12.8 H Red Blood Count 2.47 L Hemoglobin 7.1 L Hematocrit 21.2 L Mean Corpuscular 85.8 Volume Mean Corpuscular 28.7 L Hemoglobin Mean Corpuscular 33.5 Hemoglobin Concent Red Cell 15.7 H Distribution Width Platelet Count 193 # Mean Platelet Volume 10.0 Immature 1.100 H Granulocytes % Neutrophils % 82.3 H Lymphocytes % 7.8 L Monocytes % 8.5 Eosinophils % 0.2 Basophils % 0.1 Nucleated Red Blood 0.2 H Cells % Immature 0.140 H Granulocytes # Neutrophils # 10.5 H Lymphocytes # 1.0 Monocytes # 1.1 H Eosinophils # 0.0 Basophils # 0.0 Nucleated Red Blood 0.0 Cells # Sodium Level 133 L Potassium Level 5.2 H Chloride Level 102 Carbon Dioxide Level 16 L Anion Gap 15 H Blood Urea Nitrogen 61 H Creatinine 2.62 H Est Glomerular Filtrat Rate mL/min Glucose Level 104 Calcium Level 7.3 L Phosphorus Level 3.7 Magnesium Level 2.0 Bedside Glucose 126 197 Subjective 24 Hr Interval Summary Free Text/Dictation Feels the same Cr rising elliquis on hold due to anemia Exam/Review of Systems Exam Vitals Vital Signs Date Temp Pulse Resp B/P (MAP) Pulse Ox O2 O2 Flow FiO2 Time Delivery Rate 01/08/19 79 13:19 01/08/19 97.7 19 105/57 96 11:22 (73) 01/08/19 Nasal 3.0 08:10 Cannula Intake and Output 01/07/19 01/07/19 01/08/19 1515:00 23:00 07:00 IntakeIntake Total 700 ml 400 ml BalanceBalance 700 ml 400 ml Exam Constitutional: alert, oriented, deconditioned Head: normocephalic ENMT: nl external ears & nose Neck: supple Respiratory: diminished breath sounds, other (on chronic oxygen) Cardiovascular: regular rate and rhythm (a.fib) Gastrointestinal: soft, nl liver, spleen, non-tender, bowel sounds, distended, firm, hepatomegaly, mass, rebound or guarding, splenomegaly, surgical scars, tender, other Genitourinary - Male: CVA tenderness, other (swollen testicules); No nl penis, No nl scrotum, No discharge, abdominal distension Skin: other (skin cellulitis bilateral groin, axilla) Skin changes with scaling Abdominal distention MULTIPLE joint deformities Results Results 24hrs Laboratory Tests Test 01/07/19 17:29 01/07/19 18:00 01/07/19 21:57 01/08/19 02:57 Bedside Glucose 196 187 131 Urine Color YELLOW Urine Clarity CLOUDY A Urine pH 5.0 Urine Specific 1.016 [place] Urine Ketones TRACE A Urine Nitrite NEGATIVE Urine Bilirubin NEGATIVE Urine Urobilinogen 1+ H Urine Leukocyte 1+ H Esterase Urine Microscopic 4 RBC Urine Microscopic 7 H WBC Urine Squamous MODERATE Epithelial Cells Urine Bacteria FEW A Urine Hemoglobin NEGATIVE Urine Glucose NEGATIVE Urine Total Protein NEGATIVE Test 01/08/19 06:29 01/08/19 08:41 01/08/19 12:44 White Blood Count 12.8 H Red Blood Count 2.47 L Hemoglobin 7.1 L Hematocrit 21.2 L Mean Corpuscular 85.8 Volume Mean Corpuscular 28.7 L Hemoglobin Mean Corpuscular 33.5 Hemoglobin Concent Red Cell 15.7 H Distribution Width Platelet Count 193 # Mean Platelet Volume 10.0 Immature 1.100 H Granulocytes % Neutrophils % 82.3 H Lymphocytes % 7.8 L Monocytes % 8.5 Eosinophils % 0.2 Basophils % 0.1 Nucleated Red Blood 0.2 H Cells % Immature 0.140 H Granulocytes # Neutrophils # 10.5 H Lymphocytes # 1.0 Monocytes # 1.1 H Eosinophils # 0.0 Basophils # 0.0 Nucleated Red Blood 0.0 Cells # Sodium Level 133 L Potassium Level 5.2 H Chloride Level 102 Carbon Dioxide Level 16 L Anion Gap 15 H Blood Urea Nitrogen 61 H Creatinine 2.62 H Est Glomerular Filtrat Rate mL/min Glucose Level 104 Calcium Level 7.3 L Phosphorus Level 3.7 Magnesium Level 2.0 Bedside Glucose 126 197 Medications Medication Current Medications IV Flush (NS 3 ml) 3 ml PER PROTOCOL IV ; Start 01/05/19 at 08:00 Acetaminophen (Tylenol Tab) 650 mg Q6H PRN PO .PAIN 1-3 OR TEMP Last administer ed on 01/05/19 21:42; Admin Dose 650 MG; Start 01/05/19 at 08:00 Albuterol/ Ipratropium (Duoneb) 3 ml Q2H RESP THERAPY PRN HHN SHORTNESS OF BREATH; Start 01/05/19 at 08:00 Atorvastatin Calcium (Lipitor) 40 mg QHS PO Last administered on 01/07/19 21:54; Admin Dose 40 MG; Start 01/05/19 at 21:00 Bisacodyl (Dulcolax) 10 mg BID PRN PO CONSTIPATION; Start 01/05/19 at 08:00 Ferrous Sulfate (Ferrous Sulfate (Ec)) 325 mg BID PO Last administered on 01/08/19 08:44; Admin Dose 325 MG; Start 01/05/19 at 09:00 Folic Acid (Folic Acid) 1 mg DAILY PO Last administered on 01/08/19 08:44; Admin Dose 1 MG; Start 01/05/19 at 09:00 Insulin Glargine (Lantus) 10 units QHS SC Last administered on 01/07/19 22:28; Admin Dose 10 UNITS; Start 01/05/19 at 21:00 Levothyroxine Sodium (Synthroid) 125 mcg BEFORE BREAKFAST PO Last administered on 01/08/19 06:32; Admin Dose 125 MCG; Start 01/06/19 at 07:00 Metoprolol Tartrate (Lopressor) 50 mg BID PO Last administered on 01/08/19 08:44; Admin Dose 50 MG; Start 01/05/19 at 09:00 Nitroglycerin (Nitroglycerin (Sl Tab) 0.4 Mg) 0.4 tab Q5M PRN SL CHEST PAIN; Start 01/05/19 at 08:00 Polyethylene Glycol (Miralax) 17 gm DAILY PO Last administered on 01/08/19 08:42; Admin Dose 17 GM; Start 01/05/19 at 09:00 Pregabalin (Lyrica) 25 mg TID PO Last administered on 4/17/19at 12:45; Admin Dose 25 MG; Start 01/05/19 at 09:00 Terazosin HCl (Hytrin) 10 mg HS PO Last administered on 01/07/19 21:54; Admin Dose 10 MG; Start 01/05/19 at 21:00 Levofloxacin/ Dextrose 100 ml @ 100 mls/hr Q48H IVPB Last administered on 01/07/19 08:21; Admin Dose 100 MLS/HR; Start 01/05/19 at 09:00 Latanoprost (Xalatan) 1 drop HS BOTH EYES Last administered on 01/07/19 22:08; Admin Dose 1 DROP; Start 01/05/19 at 21:00 Nystatin/ Triamcinolone Acetonide (Mycolog Cr) 1 applic BID TOP Last administered on 01/08/19 08:44; Admin Dose 1 APPLIC; Start 01/05/19 at 21:00 Acetaminophen/ Hydrocodone Bitart ([place] (5/325)) 1 tab Q6H PRN PO MODERATE PAIN LEVEL 4-6 Last administered on 01/08/19 11:03; Admin Dose 1 TAB; Start 01/05/19 at 14:30 Doxycycline Hyclate 100 mg/ Sodium Chloride 250 ml @ 250 mls/hr Q12 IVPB Last administered on 01/08/19 08:43; Admin Dose 250 MLS/HR; Start 01/05/19 at 21:00 Caspofungin 50 mg/ Sodium Chloride 250 ml @ 250 mls/hr Q24H IVPB Last administered on 01/07/19 17:04; Admin Dose 250 MLS/HR; Start 01/06/19 at 15:30; Stop 01/11/19 at 15:29 Nystatin (Nystatin Powder) 1 applic BID TOP Last administered on 01/08/19 08:44; Admin Dose 1 APPLIC; Start 01/05/19 at 21:00 Miscellaneous Information 1 ea NOTE XX ; Start 01/06/19 at 10:00 Glucose (Glutose) 15 gm Q15M PRN PO DECREASED GLUCOSE; Start 01/06/19 at 10:00 Glucose (Glutose) 22.5 gm Q15M PRN PO DECREASED GLUCOSE; Start 01/06/19 at 10:00 Dextrose (D50w Syringe) 25 ml Q15M PRN IV DECREASED GLUCOSE; Start 01/06/19 at 10:00 Dextrose (D50w Syringe) 50 ml Q15M PRN IV DECREASED GLUCOSE; Start 01/06/19 at 10:00 Glucagon (Glucagen) 1 mg Q15M PRN IM DECREASED GLUCOSE; Start 01/06/19 at 10:00 Glucose (Glutose) 15 gm Q15M PRN BUCCAL DECREASED GLUCOSE; Start 01/06/19 at 10:00 Diagnostic Test (Pha) (Accu-Chek) 1 ea AC MEALS AND BEDTIME XX Last administered on 01/08/19at 11:20; Admin Dose 1 EA; Start 01/06/19 at 17:25 Pantoprazole (Protonix Iv) 40 mg BID@06,18 IV Last administered on 01/08/19at 06:32; Admin Dose 40 MG; Start 01/07/19 at 18:00 Diagnostic Test (Pha) (Accu-Chek) 1 ea 02 XX ; Start 01/08/19 at 02:00 Insulin Aspart (Novolog Insulin Pen) NOVOLOG *MILD* ALGORITHM WITH MEALS BEDTIME SC Last administered on 01/08/19at 13:07; Admin Dose 2 UNIT; Start 01/07/19 at 17:55 IVAN AKHTAR MD Jan 08, 2019 15:19
--- NOTE | 2019-01-08 15:22 | CONS ---
Consult Date/Type/Reason Admit Date/Time Jan 05, 2019 at 00:47 Initial Consult Date 01/06/19 Type of Consult Pulmonary Requesting Provider: IVAN AKHTAR MD Date/Time of Note DATE: 01/08/19 TIME: 15:20 Subjective Patient stable. No new events. Objective Vital Signs Date Temp Pulse Resp B/P (MAP) Pulse Ox O2 O2 Flow FiO2 Time Delivery Rate 01/08/19 79 13:19 01/08/19 97.7 19 105/57 96 11:22 (73) 01/08/19 Nasal 3.0 08:10 Cannula Intake and Output 01/07/19 01/07/19 01/08/19 1515:00 23:00 07:00 IntakeIntake Total 700 ml 400 ml BalanceBalance 700 ml 400 ml Exam GENERAL: Elderly -Prydeinig gentleman comfortable at rest no acute di stress VITAL SIGNS: per chart NECK: Supple. No JVD or lymphadenopathy. CARDIAC EXAM: S1, S2. No added sounds or murmurs. CHEST: clear bilaterally, No added sounds, rales or wheezes ABDOMEN: Soft, nontender. No guarding or rebound. EXTREMITIES: No cyanosis, clubbing or edema. NEUROLOGIC: Generalized weakness. No focal deficits. Results/Medications Result Diagram: 01/08/19 0601/08/19 0629 Results 24 hrs Laboratory Tests Test 01/07/19 17:29 01/07/19 18:00 01/07/19 21:57 01/08/19 02:57 Bedside Glucose 196 187 131 Urine Color YELLOW Urine Clarity CLOUDY A Urine pH 5.0 Urine Specific 1.016 [place] Urine Ketones TRACE A Urine Nitrite NEGATIVE Urine Bilirubin NEGATIVE Urine Urobilinogen 1+ H Urine Leukocyte 1+ H Esterase Urine Microscopic 4 RBC Urine Microscopic 7 H WBC Urine Squamous MODERATE Epithelial Cells Urine Bacteria FEW A Urine Hemoglobin NEGATIVE Urine Glucose NEGATIVE Urine Total Protein NEGATIVE Test 01/08/19 06:29 01/08/19 08:41 01/08/19 12:44 White Blood Count 12.8 H Red Blood Count 2.47 L Hemoglobin 7.1 L Hematocrit 21.2 L Mean Corpuscular 85.8 Volume Mean Corpuscular 28.7 L Hemoglobin Mean Corpuscular 33.5 Hemoglobin Concent Red Cell 15.7 H Distribution Width Platelet Count 193 # Mean Platelet Volume 10.0 Immature 1.100 H Granulocytes % Neutrophils % 82.3 H Lymphocytes % 7.8 L Monocytes % 8.5 Eosinophils % 0.2 Basophils % 0.1 Nucleated Red Blood 0.2 H Cells % Immature 0.140 H Granulocytes # Neutrophils # 10.5 H Lymphocytes # 1.0 Monocytes # 1.1 H Eosinophils # 0.0 Basophils # 0.0 Nucleated Red Blood 0.0 Cells # Sodium Level 133 L Potassium Level 5.2 H Chloride Level 102 Carbon Dioxide Level 16 L Anion Gap 15 H Blood Urea Nitrogen 61 H Creatinine 2.62 H Est Glomerular Filtrat Rate mL/min Glucose Level 104 Calcium Level 7.3 L Phosphorus Level 3.7 Magnesium Level 2.0 Bedside Glucose 126 197 Medications Current Medications IV Flush (NS 3 ml) 3 ml PER PROTOCOL IV ; Start 01/05/19 at 08:00 Acetaminophen (Tylenol Tab) 650 mg Q6H PRN PO .PAIN 1-3 OR TEMP Last administered on 01/05/19at 21:42; Admin Dose 650 MG; Start 01/05/19 at 08:00 Albuterol/ Ipratropium (Duoneb) 3 ml Q2H RESP THERAPY PRN HHN SHORTNESS OF BREATH; Start 01/05/19 at 08:00 Atorvastatin Calcium (Lipitor) 40 mg QHS PO Last administered on 01/07/19at 21:54; Admin Dose 40 MG; Start 01/05/19 at 21:00 Bisacodyl (Dulcolax) 10 mg BID PRN PO CONSTIPATION; Start 01/05/19 at 08:00 Ferrous Sulfate (Ferrous Sulfate (Ec)) 325 mg BID PO Last administered on 01/08/19 08:44; Admin Dose 325 MG; Start 01/05/19 at 09:00 Folic Acid (Folic Acid) 1 mg DAILY PO Last administered on 01/08/19 08:44; Admin Dose 1 MG; Start 01/05/19 at 09:00 Insulin Glargine (Lantus) 10 units QHS SC Last administered on 01/07/19 22:28; Admin Dose 10 UNITS; Start 01/05/19 at 21:00 Levothyroxine Sodium (Synthroid) 125 mcg BEFORE BREAKFAST PO Last administered on 01/08/19at 06:32; Admin Dose 125 MCG; Start 01/06/19 at 07:00 Metoprolol Tartrate (Lopressor) 50 mg BID PO Last administered on 01/08/19 08:44; Admin Dose 50 MG; Start 01/05/19 at 09:00 Nitroglycerin (Nitroglycerin (Sl Tab) 0.4 Mg) 0.4 tab Q5M PRN SL CHEST PAIN; Start 01/05/19 at 08:00 Polyethylene Glycol (Miralax) 17 gm DAILY PO Last administered on 01/08/19 08:42; Admin Dose 17 GM; Start 01/05/19 at 09:00 Pregabalin (Lyrica) 25 mg TID PO Last administered on 01/08/19 12:45; Admin Dose 25 MG; Start 01/05/19 at 09:00 Terazosin HCl (Hytrin) 10 mg HS PO Last administered on 01/07/19 21:54; Admin Dose 10 MG; Start 01/05/19 at 21:00 Levofloxacin/ Dextrose 100 ml @ 100 mls/hr Q48H IVPB Last administered on 01/07/19 08:21; Admin Dose 100 MLS/HR; Start 01/05/19 at 09:00 Latanoprost (Xalatan) 1 drop HS BOTH EYES Last administered on 01/07/19 22:08; Admin Dose 1 DROP; Start 01/05/19 at 21:00 Nystatin/ Triamcinolone Acetonide (Mycolog Cr) 1 applic BID TOP Last administered on 01/08/19 08:44; Admin Dose 1 APPLIC; Start 01/05/19 at 21:00 Acetaminophen/ Hydrocodone Bitart ([place] (5/325)) 1 tab Q6H PRN PO MODERATE PAIN LEVEL 4-6 Last administered on 01/08/19 11:03; Admin Dose 1 TAB; Start 01/05/19 at 14:30 Doxycycline Hyclate 100 mg/ Sodium Chloride 250 ml @ 250 mls/hr Q12 IVPB Last administered on 01/08/19 08:43; Admin Dose 250 MLS/HR; Start 01/05/19 at 21:00 Caspofungin 50 mg/ Sodium Chloride 250 ml @ 250 mls/hr Q24H IVPB Last administered on 01/07/19 17:04; Admin Dose 250 MLS/HR; Start 01/06/19 at 15:30; Stop 01/11/19 at 15:29 Nystatin (Nystatin Powder) 1 applic BID TOP Last administered on 01/08/19at 08:44; Admin Dose 1 APPLIC; Start 01/05/19 at 21:00 Miscellaneous Information 1 ea NOTE XX ; Start 01/06/19 at 10:00 Glucose (Glutose) 15 gm Q15M PRN PO DECREASED GLUCOSE; Start 01/06/19 at 10:00 Glucose (Glutose) 22.5 gm Q15M PRN PO DECREASED GLUCOSE; Start 01/06/19 at 10:00 Dextrose (D50w Syringe) 25 ml Q15M PRN IV DECREASED GLUCOSE; Start 01/06/19 at 10:00 Dextrose (D50w Syringe) 50 ml Q15M PRN IV DECREASED GLUCOSE; Start 01/06/19 at 10:00 Glucagon (Glucagen) 1 mg Q15M PRN IM DECREASED GLUCOSE; Start 01/06/19 at 10:00 Glucose (Glutose) 15 gm Q15M PRN BUCCAL DECREASED GLUCOSE; Start 01/06/19 at 10:00 Diagnostic Test (Pha) (Accu-Chek) 1 ea AC MEALS AND BEDTIME XX Last administered on 01/08/19at 11:20; Admin Dose 1 EA; Start 01/06/19 at 17:25 Diagnostic Test (Pha) (Accu-Chek) 1 ea 02 XX ; Start 01/08/19 at 02:00 Insulin Aspart (Novolog Insulin Pen) NOVOLOG *MILD* ALGORITHM WITH MEALS BEDTIME SC Last administered on 01/08/19at 13:07; Admin Dose 2 UNIT; Start 01/07/19 at 17:55 Pantoprazole (Protonix Iv) 40 mg DAILY IV ; Start 01/09/19 at 09:00; Status UNV Assessment/Plan Hospital Course (Demo Recall) Assessment 1. Anemia of unclear etiology possibly secondary to renal insufficiency 2. Healthcare associated pneumonia 3. Chronic renal insufficiency and cellulitis 4. History of rheumatoid arthritis 5 history of essential hypertension Plan 1. Continue antibiotics 2. Continue aspiration precautions 3. Consider iron studies and replacement 4. Consider PRBCs. DC planning? DIANA MCRAE MD, FCCP Jan 08, 2019 15:22
[2019-01-08] MEDS ORDERED: PEG/ELECTROLYTES 4L BTL PO STA (17:13)
--- NOTE | 2019-01-08 17:17 | CONS ---
Assessment/Plan Assessment/Plan Assessment/Plan (Daily) 1. Severe anemia. -retic 2.8, Iron less than 10, TIBC low 144, Ferritin high 955, NEG FOB, also ramirez s an element of severe iron deficiency 2. Atrial fibrillation. -off Eliquis in hospital 3. Sepsis. 4. Chronic obstructive pulmonary disease. 5. Hypertension. 6. Hypothyroidism. 7. Bilateral groin cellulitis. 8. Rheumatoid arthritis. 9. Diabetes mellitus. 10. Peripheral vascular disease. Plan EGD and colonoscopy tomorrow Consultation Date/Type/Reason Admit Date/Time Jan 05, 2019 at 00:47 Initial Consult Date 01/08/19 Requesting Provider: IVAN AKHTAR MD Date/Time of Note DATE: 01/08/19 TIME: 17:16 24 HR Interval Summary Constitutional: no complaints Exam/Review of Systems Exam Vitals Vital Signs Date Temp Pulse Resp B/P (MAP) Pulse Ox O2 O2 Flow FiO2 Time Delivery Rate 01/08/19 76 16:26 01/08/19 97.4 18 116/58 92 16:21 (77) 01/08/19 Nasal 3.0 08:10 Cannula Intake and Output 01/07/19 01/07/19 01/08/19 1515:00 23:00 07:00 IntakeIntake Total 700 ml 400 ml BalanceBalance 700 ml 400 ml Constitutional: alert, oriented, well developed Psych: no complaints, nl mood/affect Head: normocephalic, atraumatic Eyes: nl conjunctiva, EOMI, nl lids, nl sclera, PERRL ENMT: nl external ears & nose, nl lips & teeth, nl nasal mucosa & septum Neck: supple, non-tender Respiratory: clear to auscultation, normal air movement Cardiovascular: regular rate and rhythm, nl pulses Gastrointestinal: soft, nl liver, spleen, non-tender Musculoskeletal: nl extremities to inspection, nl gait and stance Extremities: normal pulses Neurological: BOOT AND SHOE REPAIRMAN II-XII intact, nl mental status, nl speech, nl strength Skin: nl turgor; No rash or lesions Lymph: nl lymph nodes Results Result Diagram: 01/08/19 0629 01/08/19 0629 Results 24hrs Laboratory Tests Test 01/07/19 17:29 01/07/19 18:00 01/07/19 21:57 01/08/19 02:57 Bedside Glucose 196 187 131 Urine Color YELLOW Urine Clarity CLOUDY A Urine pH 5.0 Urine Specific 1.016 [place] Urine Ketones TRACE A Urine Nitrite NEGATIVE Urine Bilirubin NEGATIVE Urine Urobilinogen 1+ H Urine Leukocyte 1+ H Esterase Urine Microscopic 4 RBC Urine Microscopic 7 H WBC Urine Squamous MODERATE Epithelial Cells Urine Bacteria FEW A Urine Hemoglobin NEGATIVE Urine Glucose NEGATIVE Urine Total Protein NEGATIVE Test 01/08/19 06:29 01/08/19 08:41 01/08/19 12:44 White Blood Count 12.8 H Red Blood Count 2.47 L Hemoglobin 7.1 L Hematocrit 21.2 L Mean Corpuscular 85.8 Volume Mean Corpuscular 28.7 L Hemoglobin Mean Corpuscular 33.5 Hemoglobin Concent Red Cell 15.7 H Distribution Width Platelet Count 193 # Mean Platelet Volume 10.0 Immature 1.100 H Granulocytes % Neutrophils % 82.3 H Lymphocytes % 7.8 L Monocytes % 8.5 Eosinophils % 0.2 Basophils % 0.1 Nucleated Red Blood 0.2 H Cells % Immature 0.140 H Granulocytes # Neutrophils # 10.5 H Lymphocytes # 1.0 Monocytes # 1.1 H Eosinophils # 0.0 Basophils # 0.0 Nucleated Red Blood 0.0 Cells # Sodium Level 133 L Potassium Level 5.2 H Chloride Level 102 Carbon Dioxide Level 16 L Anion Gap 15 H Blood Urea Nitrogen 61 H Creatinine 2.62 H Est Glomerular Filtrat Rate mL/min Glucose Level 104 Calcium Level 7.3 L Phosphorus Level 3.7 Magnesium Level 2.0 Bedside Glucose 126 197 Medications Medication Current Medications IV Flush (NS 3 ml) 3 ml PER PROTOCOL IV ; Start 01/05/19 at 08:00 Acetaminophen (Tylenol Tab) 650 mg Q6H PRN PO .PAIN 1-3 OR TEMP Last administered on 01/05/19at 21:42; Admin Dose 650 MG; Start 01/05/19 at 08:00 Albuterol/ Ipratropium (Duoneb) 3 ml Q2H RESP THERAPY PRN HHN SHORTNESS OF BREATH; Start 01/05/19 at 08:00 Atorvastatin Calcium (Lipitor) 40 mg QHS PO Last administered on 01/07/19at 21:54; Admin Dose 40 MG; Start 01/05/19 at 21:00 Bisacodyl (Dulcolax) 10 mg BID PRN PO CONSTIPATION; Start 01/05/19 at 08:00 Ferrous Sulfate (Ferrous Sulfate (Ec)) 325 mg BID PO Last administered on 01/08/19 08:44; Admin Dose 325 MG; Start 01/05/19 at 09:00 Folic Acid (Folic Acid) 1 mg DAILY PO Last administered on 01/08/19 08:44; Admin Dose 1 MG; Start 01/05/19 at 09:00 Insulin Glargine (Lantus) 10 units QHS SC Last administered on 01/07/19 22:28; Admin Dose 10 UNITS; Start 01/05/19 at 21:00 Levothyroxine Sodium (Synthroid) 125 mcg BEFORE BREAKFAST PO Last administered on 01/08/19 06:32; Admin Dose 125 MCG; Start 01/06/19 at 07:00 Metoprolol Tartrate (Lopressor) 50 mg BID PO Last administered on 01/08/19 08:44; Admin Dose 50 MG; Start 01/05/19 at 09:00 Nitroglycerin (Nitroglycerin (Sl Tab) 0.4 Mg) 0.4 tab Q5M PRN SL CHEST PAIN; Start 01/05/19 at 08:00 Polyethylene Glycol (Miralax) 17 gm DAILY PO Last administered on 01/08/19 08:42; Admin Dose 17 GM; Start 01/05/19 at 09:00 Pregabalin (Lyrica) 25 mg TID PO Last administered on 01/08/19 12:45; Admin Dose 25 MG; Start 01/05/19 at 09:00 Terazosin HCl (Hytrin) 10 mg HS PO Last administered on 01/07/19 21:54; Admin Dose 10 MG; Start 01/05/19 at 21:00 Levofloxacin/ Dextrose 100 ml @ 100 mls/hr Q48H IVPB Last administered on 01/07/19 08:21; Admin Dose 100 MLS/HR; Start 01/05/19 at 09:00 Latanoprost (Xalatan) 1 drop HS BOTH EYES Last administered on 01/07/19 22:08; Admin Dose 1 DROP; Start 01/05/19 at 21:00 Nystatin/ Triamcinolone Acetonide (Mycolog Cr) 1 applic BID TOP Last a dministered on 01/08/19 08:44; Admin Dose 1 APPLIC; Start 01/05/19 at 21:00 Acetaminophen/ Hydrocodone Bitart ([place] (5/325)) 1 tab Q6H PRN PO MODERATE PAIN LEVEL 4-6 Last administered on 01/08/19at 11:03; Admin Dose 1 TAB; Start 01/05/19 at 14:30 Doxycycline Hyclate 100 mg/ Sodium Chloride 250 ml @ 250 mls/hr Q12 IVPB Last administered on 01/08/19at 08:43; Admin Dose 250 MLS/HR; Start 01/05/19 at 21:00 Caspofungin 50 mg/ Sodium Chloride 250 ml @ 250 mls/hr Q24H IVPB Last administered on 01/07/19at 17:04; Admin Dose 250 MLS/HR; Start 01/06/19 at 15:30; Stop 01/11/19 at 15:29 Nystatin (Nystatin Powder) 1 applic BID TOP Last administered on 01/08/19at 08:44; Admin Dose 1 APPLIC; Start 01/05/19 at 21:00 Miscellaneous Information 1 ea NOTE XX ; Start 01/06/19 at 10:00 Glucose (Glutose) 15 gm Q15M PRN PO DECREASED GLUCOSE; Start 01/06/19 at 10:00 Glucose (Glutose) 22.5 gm Q15M PRN PO DECREASED GLUCOSE; Start 01/06/19 at 10:00 Dextrose (D50w Syringe) 25 ml Q15M PRN IV DECREASED GLUCOSE; Start 01/06/19 at 10:00 Dextrose (D50w Syringe) 50 ml Q15M PRN IV DECREASED GLUCOSE; Start 01/06/19 at 10:00 Glucagon (Glucagen) 1 mg Q15M PRN IM DECREASED GLUCOSE; Start 01/06/19 at 10:00 Glucose (Glutose) 15 gm Q15M PRN BUCCAL DECREASED GLUCOSE; Start 01/06/19 at 10:00 Diagnostic Test (Pha) (Accu-Chek) 1 ea AC MEALS AND BEDTIME XX Last administered on 01/08/19at 11:20; Admin Dose 1 EA; Start 01/06/19 at 17:25 Diagnostic Test (Pha) (Accu-Chek) 1 ea 02 XX ; Start 01/08/19 at 02:00 Insulin Aspart (Novolog Insulin Pen) NOVOLOG *MILD* ALGORITHM WITH MEALS BEDTIME SC Last administered on 01/08/19at 13:07; Admin Dose 2 UNIT; Start 01/07/19 at 17:55 Pantoprazole (Protonix Iv) 40 mg DAILY IV ; Start 01/09/19 at 09:00 Polyethylene Glycol/ Electrolytes (Golytely) 4,000 ml ONCE ONCE PO ; Start 01/08/19 at 17:30; Stop 01/08/19 at 17:31; Status UNV Polyethylene Glycol/ Electrolytes (Golytely) 4,000 ml ONCE STAT PO ; Start 01/08/19 at 17:13; Stop 01/08/19 at 17:14; Status UNV MICHELLE VERDIN MD Jan 08, 2019 17:17
[2019-01-08] MEDS ORDERED: PEG/ELECTROLYTES 4L BTL PO ONE (17:30)
--- NOTE | 2019-01-08 21:07 | CONS ---
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 The patient stated he was in hospital in November 2018 and was discharged with antibiotics, he finished course of antibiotic and felt better until 4 days prior to admission he developed scrotal edema, weakness, and rash in groin area and axilla. He has also been having shortness of breath and was not been able to be out of bed much for 2 days. The patient denied any abdominal pain, nausea, vomiting or diarrhea. He came to the emergency department for further evaluation. On arrival to the ED, the patient was found to have fevers of 101, blood pressure was 100/94, pulse oximetry 92. White count was 19.8, left shift neutrophiles, hemoglobin 7.9, HCT 23, platelet count 197. BMP showed BUN of 37 and creatinine of 1.66. Patient was found today to have a high bladder volume on the bladder scan and attempt by the nursing staff to insert the Wade catheter will not successful therefore a urological consultation was requested. The patient was seen in his room and his daughter was at his bedside. He lives with her. There was no history of prior prostate surgery. The daughter states that he has been able to urinate on his own at home. His bed is wet so is his gown because he just voided. Presently the does have what down and what bed as he just voided. I wanted to do bladder scan first but the bladder scan was not available. Therefore I went ahead and prep the genital area and inserted a 16 Telugu regular catheter. The problem that the nursing staff were having is at he does have phimosis covering the head of the penis and they could not direct the tip of the catheter into the urethral meatus since they cannot see it. The Wade catheter I just inserted drained about 350 mL of clear yellow urine. 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 The patient stated he was in hospital in November 2018 and was discharged with antibiotics, he finished course of antibiotic and felt better until 4 days prior to admission he developed scrotal edema, weakness, and rash in groin area and axilla. He has also been having shortness of breath and was not been able to be out of bed much for 2 days. The patient denied any abdominal pain, nausea, vomiting or diarrhea. He came to the emergency department for further evaluation. On arrival to the ED, the patient was found to have fevers of 101, blood pressure was 100/94, pulse oximetry 92. White count was 19.8, left shift neutrophiles, hemoglobin 7.9, HCT 23, platelet count 197. BMP showed BUN of 37 and creatinine of 1.66. Patient was found today to have a high bladder volume on the bladder scan and attempt by the nursing staff to insert the Wade catheter will not successful therefore a urological consultation was requested. The patient was seen in his room and his daughter was at his bedside. He lives with her. There was no history of prior prostate surgery. The daughter states that he has been able to urinate on his own at home. His bed is wet so is his gown because he just voided. Constitutional: no complaints Eyes: no complaints ENT: no complaints Respiratory: shortness of breath (on admission) Cardiovascular: other (History of A. fib) Gastrointestinal: no complaints Genitourinary: other (Urinary incontinence) Skin: bruising, other (Patient has rash over both thighs and perineal area and other areas in his body. The skin is excoriated and peeling off.) Neurologic: no complaints Endocrine: no complaints Lymphatic: no complaints Psychological: no complaints Immunologic: no complaints Past Medical History Medical History: coronary artery disease, diabetes, high cholesterol, hypertension, renal disease, other (Glaucoma) Home Meds Active Scripts Apixaban* (Eliquis*) 5 Mg Tablet, 2.5 MG PO BID for 30 Days, TAB Prov:IVAN AKHTAR MD 12/20/18 Metoprolol Tartrate* (Lopressor*) 50 Mg Tab, 50 MG PO BID for 30 Days, TAB Prov:CARSON CAROA 12/20/18 Reported Medications Furosemide* (Lasix*) 20 Mg Tablet, 20 MG PO BID, TAB 01/05/19 Polyethylene Glycol* (Miralax*) 17 Gm Powd.pack, 17 GM PO DAILY, #30 PACKET 12/15/18 Nifedipine* (Nifedipine ER*) 60 Mg Tablet.sa, 60 MG PO DAILY, TAB.SA 12/15/18 Bisacodyl* (Bisacodyl*) 5 Mg Tablet.dr, 10 MG PO BID PRN for CONSTIPATION, TAB 12/15/18 Pregabalin* (Lyrica*) 25 Mg Capsule, 25 MG PO TID, CAP 12/15/18 Bimatoprost* (Lumigan*) 0.01%-5 Ml Opht Drops, 1 DROP BOTH EYES HS, EA 03/02/18 Cetirizine Hcl* (Cetirizine Hcl*) 10 Mg Tablet, 10 MG PO DAILY, #30 TAB 03/02/18 Insulin Glargine* (Lantus*) 100 Unit/Ml Soln, 10 UNIT SC QHS, #1 VIAL 03/02/18 Ergocalciferol (Vitamin D2) (VITAMIN D2) 2,000 Unit Tablet, 2000 UNIT PO DAILY, TAB 03/02/18 Famotidine* (Famotidine*) 20 Mg Tablet, 20 MG PO DAILY, #30 TAB 03/02/18 Ferrous Sulfate* (Ferrous Sulfate*) 325 Mg Tabec, 325 MG PO BID, TAB 03/02/18 Nitroglycerin* (Nitrostat*) 0.4 Mg Tab.subl, 0.4 MG SL Q5MIN PRN for CHEST PAIN, BOTTLE 03/02/18 Terazosin Hcl* (Terazosin Hcl*) 10 Mg Capsule, 10 MG PO HS, CAP 03/02/18 Levothyroxine Sodium* (Levoxyl*) 125 Mcg Tablet, 125 MCG PO BEFORE BREAKFAST, #30 TAB 03/02/18 Allopurinol* (Allopurinol*) 100 Mg Tablet, 100 MG PO BID, TAB 03/02/18 Atorvastatin* (Atorvastatin*) 40 Mg Tablet, 40 MG PO QHS, #30 TAB 03/02/18 Folic Acid* (Folic Acid*) 1 Mg Tablet, 1 MG PO DAILY, TAB 03/02/18 Discontinued Scripts Methylprednisolone* (Medrol* DOSE PACK) 4 Mg/Dose-Pack Tab.ds.pk, 4 MG PO . DIRECTED for 7 Days, PACKET Prov:IVAN AKHTAR MD 12/20/18 Doxycycline Monohydrate (Doxycycline Monohydrate) 100 Mg Capsule, 100 MG PO BID for 5 Days, CAP Prov:COOPER CARO 12/20/18 Levofloxacin* (Levaquin*) 500 Mg Tablet, 500 MG PO DAILY for 5 Days, TAB Prov:COOPER CARO 12/20/18 Medications Current Medications IV Flush (NS 3 ml) 3 ml PER PROTOCOL IV ; Start 01/05/19 at 08:00 Acetaminophen (Tylenol Tab) 650 mg Q6H PRN PO .PAIN 1-3 OR TEMP Last administered on 01/05/19at 21:42; Admin Dose 650 MG; Start 01/05/19 at 08:00 Albuterol/ Ipratropium (Duoneb) 3 ml Q2H RESP THERAPY PRN HHN SHORTNESS OF BREATH; Start 01/05/19 at 08:00 Atorvastatin Calcium (Lipitor) 40 mg QHS PO Last administered on 01/07/19at 21:54; Admin Dose 40 MG; Start 01/05/19 at 21:00 Bisacodyl (Dulcolax) 10 mg BID PRN PO CONSTIPATION; Start 01/05/19 at 08:00 Ferrous Sulfate (Ferrous Sulfate (Ec)) 325 mg BID PO Last administered on 01/08/19at 08:44; Admin Dose 325 MG; Start 01/05/19 at 09:00 Folic Acid (Folic Acid) 1 mg DAILY PO Last administered on 01/08/19at 08:44; Admin Dose 1 MG; Start 01/05/19 at 09:00 Insulin Glargine (Lantus) 10 units QHS SC Last administered on 01/07/19at 22:28; Admin Dose 10 UNITS; Start 01/05/19 at 21:00 Levothyroxine Sodium (Synthroid) 125 mcg BEFORE BREAKFAST PO Last administered on 01/08/19at 06:32; Admin Dose 125 MCG; Start 01/06/19 at 07:00 Metoprolol Tartrate (Lopressor) 50 mg BID PO Last administered on 01/08/19 08:44; Admin Dose 50 MG; Start 01/05/19 at 09:00 Nitroglycerin (Nitroglycerin (Sl Tab) 0.4 Mg) 0.4 tab Q5M PRN SL CHEST PAIN; Start 01/05/19 at 08:00 Polyethylene Glycol (Miralax) 17 gm DAILY PO Last administered on 01/08/19 08:42; Admin Dose 17 GM; Start 01/05/19 at 09:00 Pregabalin (Lyrica) 25 mg TID PO Last administered on 01/08/19 12:45; Admin Dose 25 MG; Start 01/05/19 at 09:00 Terazosin HCl (Hytrin) 10 mg HS PO Last administered on 01/07/19 21:54; Admin Dose 10 MG; Start 01/05/19 at 21:00 Levofloxacin/ Dextrose 100 ml @ 100 mls/hr Q48H IVPB Last administered on 01/07/19 08:21; Admin Dose 100 MLS/HR; Start 01/05/19 at 09:00 Latanoprost (Xalatan) 1 drop HS BOTH EYES Last administered on 01/07/19 22:08; Admin Dose 1 DROP; Start 01/05/19 at 21:00 Nystatin/ Triamcinolone Acetonide (Mycolog Cr) 1 applic BID TOP Last administered on 01/08/19 08:44; Admin Dose 1 APPLIC; Start 01/05/19 at 21:00 Acetaminophen/ Hydrocodone Bitart ([place] (5/325)) 1 tab Q6H PRN PO MODERATE PAIN LEVEL 4-6 Last administered on 01/08/19 17:17; Admin Dose 1 TAB; Start 01/05/19 at 14:30 Doxycycline Hyclate 100 mg/ Sodium Chloride 250 ml @ 250 mls/hr Q12 IVPB Last administered on 01/08/19 08:43; Admin Dose 250 MLS/HR; Start 01/05/19 at 21:00 Caspofungin 50 mg/ Sodium Chloride 250 ml @ 250 mls/hr Q24H IVPB Last administered on 01/07/19 17:04; Admin Dose 250 MLS/HR; Start 01/06/19 at 15:30; Stop 01/11/19 at 15:29 Nystatin (Nystatin Powder) 1 applic BID TOP Last administered on 01/08/19at 08:44; Admin Dose 1 APPLIC; Start 01/05/19 at 21:00 Miscellaneous Information 1 ea NOTE XX ; Start 01/06/19 at 10:00 Glucose (Glutose) 15 gm Q15M PRN PO DECREASED GLUCOSE; Start 01/06/19 at 10:00 Glucose (Glutose) 22.5 gm Q15M PRN PO DECREASED GLUCOSE; Start 01/06/19 at 10:00 Dextrose (D50w Syringe) 25 ml Q15M PRN IV DECREASED GLUCOSE; Start 01/06/19 at 10:00 Dextrose (D50w Syringe) 50 ml Q15M PRN IV DECREASED GLUCOSE; Start 01/06/19 at 10:00 Glucagon (Glucagen) 1 mg Q15M PRN IM DECREASED GLUCOSE; Start 01/06/19 at 10:00 Glucose (Glutose) 15 gm Q15M PRN BUCCAL DECREASED GLUCOSE; Start 01/06/19 at 10:00 Diagnostic Test (Pha) (Accu-Chek) 1 ea AC MEALS AND BEDTIME XX Last administered on 01/08/19at 17:13; Admin Dose 1 EA; Start 01/06/19 at 17:25 Diagnostic Test (Pha) (Accu-Chek) 1 ea 02 XX ; Start 01/08/19 at 02:00 Insulin Aspart (Novolog Insulin Pen) NOVOLOG *MILD* ALGORITHM WITH MEALS BEDTIME SC Last administered on 01/08/19at 17:40; Admin Dose 1 UNIT; Start 01/07/19 at 17:55 Pantoprazole (Protonix Iv) 40 mg DAILY IV ; Start 01/09/19 at 09:00 Allergies: Coded Allergies: Penicillins (Verified Allergy, Severe, shortness of breath, 01/05/19) Sulfa (Sulfonamide Antibiotics) (Verified Allergy, Severe, Shortness of breath, 01/05/19) sulfadiazine (Verified Allergy, Severe, shortness of breath, 01/05/19) Past Surgical History Past Surgical Hx: angioplasty (x2), other ( nuts/bolts in back, carotid artery stent right side) Social History Alcohol Use: none Smoking Status: Former smoker Drug Use: none Exam/Review of Systems Exam Vitals Vital Signs Date Temp Pulse Resp B/P (MAP) Pulse Ox O2 O2 Flow FiO2 Time Delivery Rate 01/08/19 97.7 78 19 145/63 96 20:00 (90) 01/08/19 Nasal 3.0 08:10 Cannula Intake and Output 01/07/19 01/07/19 01/08/19 1515:00 23:00 07:00 IntakeIntake Total 700 ml 400 ml BalanceBalance 700 ml 400 ml Constitutional: alert Psych: no complaints Head: normocephalic Eyes: nl conjunctiva ENMT: nl external ears & nose, intubated Neck: supple, non-tender Respiratory: clear to auscultation, diminished breath sounds Cardiovascular: No jugular venous distention (JVD) Gastrointestinal: soft, non-tender Genitourinary - Male: nl scrotum, other (The penis is swollen and he has vitiligo on the foreskin and phimosis, he also does have mild scrotal edema.) Musculoskeletal: other (Rash of both upper and lower extremities.) Extremities: No calf tenderness Results Result Diagram: 01/08/19 0629 01/08/19 0629 Results 24hrs Laboratory Tests Test 01/07/19 21:57 01/08/19 02:57 01/08/19 06:29 01/08/19 08:41 Bedside Glucose 187 131 126 White Blood Count 12.8 H Red Blood Count 2.47 L Hemoglobin 7.1 L Hematocrit 21.2 L Mean Corpuscular 85.8 Volume Mean Corpuscular 28.7 L Hemoglobin Mean Corpuscular 33.5 Hemoglobin Concent Red Cell 15.7 H Distribution Width Platelet Count 193 # Mean Platelet Volume 10.0 Immature 1.100 H Granulocytes % Neutrophils % 82.3 H Lymphocytes % 7.8 L Monocytes % 8.5 Eosinophils % 0.2 Basophils % 0.1 Nucleated Red Blood 0.2 H Cells % Immature 0.140 H Granulocytes # Neutrophils # 10.5 H Lymphocytes # 1.0 Monocytes # 1.1 H Eosinophils # 0.0 Basophils # 0.0 Nucleated Red Blood 0.0 Cells # Sodium Level 133 L Potassium Level 5.2 H Chloride Level 102 Carbon Dioxide Level 16 L Anion Gap 15 H Blood Urea Nitrogen 61 H Creatinine 2.62 H Est Glomerular Filtrat Rate mL/min Glucose Level 104 Calcium Level 7.3 L Phosphorus Level 3.7 Magnesium Level 2.0 Test 01/08/19 12:44 4/17/19 17:15 Bedside Glucose 197 149 Medications Medication Current Medications IV Flush (NS 3 ml) 3 ml PER PROTOCOL IV ; Start 01/05/19 at 08:00 Acetaminophen (Tylenol Tab) 650 mg Q6H PRN PO .PAIN 1-3 OR TEMP Last administered on 01/05/19 21:42; Admin Dose 650 MG; Start 01/05/19 at 08:00 Albuterol/ Ipratropium (Duoneb) 3 ml Q2H RESP THERAPY PRN HHN SHORTNESS OF BREATH; Start 01/05/19 at 08:00 Atorvastatin Calcium (Lipitor) 40 mg QHS PO Last administered on 01/07/19 21:54; Admin Dose 40 MG; Start 01/05/19 at 21:00 Bisacodyl (Dulcolax) 10 mg BID PRN PO CONSTIPATION; Start 01/05/19 at 08:00 Ferrous Sulfate (Ferrous Sulfate (Ec)) 325 mg BID PO Last administered on 01/08/19 08:44; Admin Dose 325 MG; Start 01/05/19 at 09:00 Folic Acid (Folic Acid) 1 mg DAILY PO Last administered on 01/08/19 08:44; Admin Dose 1 MG; Start 01/05/19 at 09:00 Insulin Glargine (Lantus) 10 units QHS SC Last administered on 01/07/19 22:28; Admin Dose 10 UNITS; Start 01/05/19 at 21:00 Levothyroxine Sodium (Synthroid) 125 mcg BEFORE BREAKFAST PO Last administered on 01/08/19 06:32; Admin Dose 125 MCG; Start 01/06/19 at 07:00 Metoprolol Tartrate (Lopressor) 50 mg BID PO Last administered on 01/08/19 08:44; Admin Dose 50 MG; Start 01/05/19 at 09:00 Nitroglycerin (Nitroglycerin (Sl Tab) 0.4 Mg) 0.4 tab Q5M PRN SL CHEST PAIN; Start 01/05/19 at 08:00 Polyethylene Glycol (Miralax) 17 gm DAILY PO Last administered on 01/08/19 08:42; Admin Dose 17 GM; Start 01/05/19 at 09:00 Pregabalin (Lyrica) 25 mg TID PO Last administered on 01/08/19 12:45; Admin Dose 25 MG; Start 01/05/19 at 09:00 Terazosin HCl (Hytrin) 10 mg HS PO Last administered on 01/07/19 21:54; Admin Dose 10 MG; Start 01/05/19 at 21:00 Levofloxacin/ Dextrose 100 ml @ 100 mls/hr Q48H IVPB Last administered on 01/07/19 08:21; Admin Dose 100 MLS/HR; Start 01/05/19 at 09:00 Latanoprost (Xalatan) 1 drop HS BOTH EYES Last administered on 01/07/19 22:08; Admin Dose 1 DROP; Start 01/05/19 at 21:00 Nystatin/ Triamcinolone Acetonide (Mycolog Cr) 1 applic BID TOP Last administered on 01/08/19 08:44; Admin Dose 1 APPLIC; Start 01/05/19 at 21:00 Acetaminophen/ Hydrocodone Bitart ([place] (5/325)) 1 tab Q6H PRN PO MODERATE PAIN LEVEL 4-6 Last administered on 01/08/19at 17:17; Admin Dose 1 TAB; Start 01/05/19 at 14:30 Doxycycline Hyclate 100 mg/ Sodium Chloride 250 ml @ 250 mls/hr Q12 IVPB Last administered on 01/08/19 08:43; Admin Dose 250 MLS/HR; Start 01/05/19 at 21:00 Caspofungin 50 mg/ Sodium Chloride 250 ml @ 250 mls/hr Q24H IVPB Last a dministered on 01/07/19at 17:04; Admin Dose 250 MLS/HR; Start 01/06/19 at 15:30; Stop 01/11/19 at 15:29 Nystatin (Nystatin Powder) 1 applic BID TOP Last administered on 01/08/19 08:44; Admin Dose 1 APPLIC; Start 01/05/19 at 21:00 Miscellaneous Information 1 ea NOTE XX ; Start 01/06/19 at 10:00 Glucose (Glutose) 15 gm Q15M PRN PO DECREASED GLUCOSE; Start 01/06/19 at 10:00 Glucose (Glutose) 22.5 gm Q15M PRN PO DECREASED GLUCOSE; Start 01/06/19 at 10:00 Dextrose (D50w Syringe) 25 ml Q15M PRN IV DECREASED GLUCOSE; Start 01/06/19 at 10:00 Dextrose (D50w Syringe) 50 ml Q15M PRN IV DECREASED GLUCOSE; Start 01/06/19 at 10:00 Glucagon (Glucagen) 1 mg Q15M PRN IM DECREASED GLUCOSE; Start 01/06/19 at 10:00 Glucose (Glutose) 15 gm Q15M PRN BUCCAL DECREASED GLUCOSE; Start 01/06/19 at 10:00 Diagnostic Test (Pha) (Accu-Chek) 1 ea AC MEALS AND BEDTIME XX Last administered on 01/08/19at 17:13; Admin Dose 1 EA; Start 01/06/19 at 17:25 Diagnostic Test (Pha) (Accu-Chek) 1 ea 02 XX ; Start 01/08/19 at 02:00 Insulin Aspart (Novolog Insulin Pen) NOVOLOG *MILD* ALGORITHM WITH MEALS BEDTIME SC Last administered on 01/08/19at 17:40; Admin Dose 1 UNIT; Start 01/07/19 at 17:55 Pantoprazole (Protonix Iv) 40 mg DAILY IV ; Start 01/09/19 at 09:00 CANDY CAST MD Jan 08, 2019 20:58
[2019-01-08] MEDS: ATORVASTATIN 40 MG TAB PO SCH (22:18)
[2019-01-08] MEDS: LATANOPROST 0.005% 2.5 ML OPH BOTH EYES SCH (22:18)
[2019-01-08] MEDS: TERAZOSIN 5 MG CAP PO SCH (22:18)
[2019-01-08] MEDS: INSULIN GLARGINE [LANTus] (100 UNITS/ML) SYG SC SCH (22:25)
[2019-01-08] MEDS: CASPOFUNGIN 50 MG in SOD CHLORIDE 0.9% 250 ML IVPB SCH (23:00)
[2019-01-09] VITALS (18 sets, daily range): BP systolic 101–137; BP diastolic 51–72; PULSE 71–94; RESP 13–19
[2019-01-09] MEDS: INSULIN ASPART [NOVOLOG] 3 ML PEN SC SCH ×3 (00:38→11:50)
[2019-01-09] MEDS: ACCU-CHEK XX SCH ×4 (00:38→11:20)
[2019-01-09] MEDS: DOXYCYCLINE 100 MG in SOD CHLORIDE 0.9% 250 ML IVPB SCH ×3 (05:42→20:52)
[2019-01-09] MEDS ORDERED: BISACODYL (EC) 5 MG TAB PO ONE (06:00)
[2019-01-09] MEDS: LEVOTHYROXINE 125 MCG TAB PO SCH (06:32)
[2019-01-09] MEDS: PREGABALIN 25 MG CAP PO SCH ×3 (07:52→20:40)
[2019-01-09] MEDS: FOLIC ACID 1 MG TAB PO SCH (07:52)
[2019-01-09] MEDS: FERROUS SULFATE (EC) 325 MG TAB PO SCH ×2 (07:52→19:57)
[2019-01-09] MEDS: METOPROLOL 50 MG TAB PO SCH ×2 (07:53→19:58)
[2019-01-09] MEDS: POLYETHYLENE GLYCOL 17 GM PACKET PO SCH (07:53)
[2019-01-09] MEDS: NYSTATIN 30 GM POWDER BTL TOP SCH ×2 (07:53→20:24)
[2019-01-09] MEDS: NYSTATIN/TRIAMCINOLONE 15 GM CR TOP SCH ×2 (07:53→20:24)
[2019-01-09] MEDS: LEVOFLOXACIN 500MG/D5W (PMX) 100 ML IVPB SCH (07:54)
[2019-01-09] MEDS ORDERED: DEXTROSE 5%-0.45% NACL 1,000 ML IV SCH (08:00)
[2019-01-09] MEDS: PANTOPRAZOLE 40 MG INJ IV SCH (08:07)
[2019-01-09] MEDS: HYDROCODONE/APAP (5/325) TAB PO PRN (09:03)
--- NOTE | 2019-01-09 12:36 | CONS ---
Assessment/Plan Assessment/Plan Hospital Course (Demo Recall) All noted. No acute changes, looks comfortable Testicular ultrasound revealed right epididymitis no evidence of scrotal abscess or neoplasm Antimicrobials: Cancidas, doxycycline, Levaquin Allergy: Penicillin, sulfa Physical examination: Obese well-developed chronically ill-appearing - [place] man who is awake in no distress. Head atraumatic normocephalic sclera nonicteric. Neck is supple chest rise symmetrical breath sounds diminished bases. Heart: S1-S2. Abdomen obese soft bowel sounds present extremities without cyanosis Assessment: 1. Sepsis, present on admission 2. Pneumonia 3. 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 Advanced rheumatoid arthritis 5. Chronic atrial fibrillation 6. Diabetes 7. BPH 8. Bilateral groin cellulitis 9. Acute on chronic anemia 10. Right epididymitis Plan: Remains stable, continue antibiotics, GI rec-s noted, pending EGD and colonoscopy Consultation Date/Type/Reason Admit Date/Time Jan 05, 2019 at 00:47 Initial Consult Date 01/06/19 Type of Consult id Requesting Provider: CAMPOS CESAR MD Date/Time of Note DATE: 01/09/19 TIME: 12:32 Exam/Review of Systems Exam Vitals Vital Signs Date Temp Pulse Resp B/P (MAP) Pulse Ox O2 O2 Flow FiO2 Time Delivery Rate 01/09/19 97.7 71 18 115/54 94 Nasal 4.0 11:13 (74) Cannula Intake and Output 01/08/19 01/08/19 01/09/19 1515:00 23:00 07:00 IntakeIntake Total 250 ml 400 ml 250 ml BalanceBalance 250 ml 400 ml 250 ml Results Result Diagram: 01/09/19 0700 01/09/19 0700 Results 24hrs Laboratory Tests Test 01/08/19 12:44 01/08/19 17:15 01/08/19 21:00 01/08/19 22:15 Bedside Glucose 197 149 129 Urine Color YELLOW Urine Clarity CLEAR Urine pH 5.0 Urine Specific 1.017 [place] Urine Ketones TRACE A Urine Nitrite NEGATIVE Urine Bilirubin NEGATIVE Urine Urobilinogen 1+ H Urine Leukocyte NEGATIVE Esterase Urine Eosinophils % 0.0 Urine Hemoglobin NEGATIVE Urine Random Sodium < 13 L Urine Glucose NEGATIVE Urine Total Protein NEGATIVE Test 01/09/19 07:00 01/09/19 07:42 01/09/19 12:24 White Blood Count 10.6 Red Blood Count 2.43 L Hemoglobin 7.0 L Hematocrit 21.7 L Mean Corpuscular 89.3 Volume Mean Corpuscular 28.8 L Hemoglobin Mean Corpuscular 32.3 Hemoglobin Concent Red Cell 16.4 H Distribution Width Platelet Count 257 # Mean Platelet Volume 10.4 Immature 0.700 H Granulocytes % Neutrophils % 79.5 H Lymphocytes % 10.4 L Monocytes % 9.0 Eosinophils % 0.4 Basophils % 0.0 Nucleated Red Blood 0.2 H Cells % Immature 0.070 H Granulocytes # Neutrophils # 8.5 H Lymphocytes # 1.1 Monocytes # 1.0 H Eosinophils # 0.0 Basophils # 0.0 Nucleated Red Blood 0.0 Cells # Sodium Level 133 L Potassium Level 4.9 Chloride Level 104 Carbon Dioxide Level 18 L Anion Gap 11 Blood Urea Nitrogen 55 H Creatinine 2.95 H Est Glomerular Filtrat Rate mL/min Glucose Level 55 #L Calcium Level 7.8 L Phosphorus Level 4.0 Magnesium Level 2.1 Bedside Glucose 78 73 Medications Medication Current Medications IV Flush (NS 3 ml) 3 ml PER PROTOCOL IV ; Start 01/05/19 at 08:00 Acetaminophen (Tylenol Tab) 650 mg Q6H PRN PO .PAIN 1-3 OR TEMP Last administered on 01/05/19at 21:42; Admin Dose 650 MG; Start 01/05/19 at 08:00 Albuterol/ Ipratropium (Duoneb) 3 ml Q2H RESP THERAPY PRN HHN SHORTNESS OF BREATH; Start 01/05/19 at 08:00 Atorvastatin Calcium (Lipitor) 40 mg QHS PO Last administered on 01/08/19at 22:18; Admin Dose 40 MG; Start 01/05/19 at 21:00 Bisacodyl (Dulcolax) 10 mg BID PRN PO CONSTIPATION Last administered on 01/09/19 07:52; Admin Dose 10 MG; Start 01/05/19 at 08:00 Ferrous Sulfate (Ferrous Sulfate (Ec)) 325 mg BID PO Last administered on 01/09/19 07:52; Admin Dose 325 MG; Start 01/05/19 at 09:00 Folic Acid (Folic Acid) 1 mg DAILY PO Last administered on 01/09/19at 07:52; Admin Dose 1 MG; Start 01/05/19 at 09:00 Insulin Glargine (Lantus) 10 units QHS SC Last administered on 01/08/19 22:25; Admin Dose 10 UNITS; Start 01/05/19 at 21:00 Levothyroxine Sodium (Synthroid) 125 mcg BEFORE BREAKFAST PO Last administered on 01/09/19 06:32; Admin Dose 125 MCG; Start 01/06/19 at 07:00 Metoprolol Tartrate (Lopressor) 50 mg BID PO Last administered on 01/09/19 07:53; Admin Dose 50 MG; Start 01/05/19 at 09:00 Nitroglycerin (Nitroglycerin (Sl Tab) 0.4 Mg) 0.4 tab Q5M PRN SL CHEST PAIN; Start 01/05/19 at 08:00 Polyethylene Glycol (Miralax) 17 gm DAILY PO Last administered on 01/09/19 07:53; Admin Dose 17 GM; Start 01/05/19 at 09:00 Pregabalin (Lyrica) 25 mg TID PO Last administered on 01/09/19 12:12; Admin Dose 25 MG; Start 01/05/19 at 09:00 Terazosin HCl (Hytrin) 10 mg HS PO Last administered on 01/08/19 22:18; Admin Dose 10 MG; Start 01/05/19 at 21:00 Levofloxacin/ Dextrose 100 ml @ 100 mls/hr Q48H IVPB Last administered on 01/09/19 07:54; Admin Dose 100 MLS/HR; Start 01/05/19 at 09:00 Latanoprost (Xalatan) 1 drop HS BOTH EYES Last administered on 01/08/19 22:18; Admin Dose 1 DROP; Start 01/05/19 at 21:00 Nystatin/ Triamcinolone Acetonide (Mycolog Cr) 1 applic BID TOP Last administered on 01/09/19 07:53; Admin Dose 1 APPLIC; Start 01/05/19 at 21:00 Acetaminophen/ Hydrocodone Bitart ([place] (5/325)) 1 tab Q6H PRN PO MODERATE PAIN LEVEL 4-6 Last administered on 01/09/19 09:03; Admin Dose 1 TAB; Start 01/05/19 at 14:30 Doxycycline Hyclate 100 mg/ Sodium Chloride 250 ml @ 250 mls/hr Q12 IVPB Last administered on 01/09/19 09:03; Admin Dose 250 MLS/HR; Start 01/05/19 at 21:00 Caspofungin 50 mg/ Sodium Chloride 250 ml @ 250 mls/hr Q24H IVPB Last a dministered on 01/07/19at 17:04; Admin Dose 250 MLS/HR; Start 01/06/19 at 15:30; Stop 01/11/19 at 15:29 Nystatin (Nystatin Powder) 1 applic BID TOP Last administered on 01/09/19at 07:53; Admin Dose 1 APPLIC; Start 01/05/19 at 21:00 Miscellaneous Information 1 ea NOTE XX ; Start 01/06/19 at 10:00 Glucose (Glutose) 15 gm Q15M PRN PO DECREASED GLUCOSE; Start 01/06/19 at 10:00 Glucose (Glutose) 22.5 gm Q15M PRN PO DECREASED GLUCOSE; Start 01/06/19 at 10:00 Dextrose (D50w Syringe) 25 ml Q15M PRN IV DECREASED GLUCOSE; Start 01/06/19 at 10:00 Dextrose (D50w Syringe) 50 ml Q15M PRN IV DECREASED GLUCOSE; Start 01/06/19 at 10:00 Glucagon (Glucagen) 1 mg Q15M PRN IM DECREASED GLUCOSE; Start 01/06/19 at 10:00 Glucose (Glutose) 15 gm Q15M PRN BUCCAL DECREASED GLUCOSE; Start 01/06/19 at 10:00 Diagnostic Test (Pha) (Accu-Chek) 1 ea AC MEALS AND BEDTIME XX Last administered on 01/09/19at 11:20; Admin Dose 1 EA; Start 01/06/19 at 17:25 Diagnostic Test (Pha) (Accu-Chek) 1 ea 02 XX ; Start 01/08/19 at 02:00 Insulin Aspart (Novolog Insulin Pen) NOVOLOG *MILD* ALGORITHM WITH MEALS BEDTIME SC Last administered on 01/08/19at 17:40; Admin Dose 1 UNIT; Start 01/07/19 at 17:55 Pantoprazole (Protonix Iv) 40 mg DAILY IV Last administered on 01/09/19 08:07; Admin Dose 40 MG; Start 01/09/19 at 09:00 Dextrose/Sodium Chloride 1,000 ml @ 40 mls/hr Q24H IV Last administered on 4/18/19at 08:58; Admin Dose 40 MLS/HR; Start 01/09/19 at 08:00 LUCIAN HARKINS NP Jan 09, 2019 12:36
--- NOTE | 2019-01-09 12:41 | CONS ---
Consult Date/Type/Reason Admit Date/Time Jan 05, 2019 at 00:47 Initial Consult Date 01/06/19 Type of Consult Pulmonary Requesting Provider: CAMPOS CESAR MD Date/Time of Note DATE: 01/09/19 TIME: 12:40 Subjective Patient comfortable no respiratory distress Objective Vital Signs Date Temp Pulse Resp B/P (MAP) Pulse Ox O2 O2 Flow FiO2 Time Delivery Rate 01/09/19 97.7 71 18 115/54 94 Nasal 4.0 11:13 (74) Cannula Intake and Output 01/08/19 01/08/19 01/09/19 1414:59 22:59 06:59 IntakeIntake Total 250 ml 400 ml 250 ml BalanceBalance 250 ml 400 ml 250 ml Exam GENERAL: Elderly -[place] gentleman comfortable at rest no acute distress VITAL SIGNS: per chart NECK: Supple. No JVD or lymphadenopathy. CARDIAC EXAM: S1, S2. No added sounds or murmurs. CHEST: clear bilaterally, No added sounds, rales or wheezes ABDOMEN: Soft, nontender. No guarding or rebound. EXTREMITIES: No cyanosis, clubbing or edema. NEUROLOGIC: Generalized weakness. No focal deficits. Results/Medications Result Diagram: 01/09/19 0700 01/09/19 0700 Results 24 hrs Laboratory Tests Test 01/08/19 12:44 01/08/19 17:15 01/08/19 21:00 01/08/19 22:15 Bedside Glucose 197 149 129 Urine Color YELLOW Urine Clarity CLEAR Urine pH 5.0 Urine Specific 1.017 [place] Urine Ketones TRACE A Urine Nitrite NEGATIVE Urine Bilirubin NEGATIVE Urine Urobilinogen 1+ H Urine Leukocyte NEGATIVE Esterase Urine Eosinophils % 0.0 Urine Hemoglobin NEGATIVE Urine Random Sodium < 13 L Urine Glucose NEGATIVE Urine Total Protein NEGATIVE Test 01/09/19 07:00 01/09/19 07:42 01/09/19 12:24 White Blood Count 10.6 Red Blood Count 2.43 L Hemoglobin 7.0 L Hematocrit 21.7 L Mean Corpuscular 89.3 Volume Mean Corpuscular 28.8 L Hemoglobin Mean Corpuscular 32.3 Hemoglobin Concent Red Cell 16.4 H Distribution Width Platelet Count 257 # Mean Platelet Volume 10.4 Immature 0.700 H Granulocytes % Neutrophils % 79.5 H Lymphocytes % 10.4 L Monocytes % 9.0 Eosinophils % 0.4 Basophils % 0.0 Nucleated Red Blood 0.2 H Cells % Immature 0.070 H Granulocytes # Neutrophils # 8.5 H Lymphocytes # 1.1 Monocytes # 1.0 H Eosinophils # 0.0 Basophils # 0.0 Nucleated Red Blood 0.0 Cells # Sodium Level 133 L Potassium Level 4.9 Chloride Level 104 Carbon Dioxide Level 18 L Anion Gap 11 Blood Urea Nitrogen 55 H Creatinine 2.95 H Est Glomerular Filtrat Rate mL/min Glucose Level 55 #L Calcium Level 7.8 L Phosphorus Level 4.0 Magnesium Level 2.1 Bedside Glucose 78 73 Medications Current Medications IV Flush (NS 3 ml) 3 ml PER PROTOCOL IV ; Start 01/05/19 at 08:00 Acetaminophen (Tylenol Tab) 650 mg Q6H PRN PO .PAIN 1-3 OR TEMP Last administered on 01/05/19 21:42; Admin Dose 650 MG; Start 01/05/19 at 08:00 Albuterol/ Ipratropium (Duoneb) 3 ml Q2H RESP THERAPY PRN HHN SHORTNESS OF BREATH; Start 01/05/19 at 08:00 Atorvastatin Calcium (Lipitor) 40 mg QHS PO Last administered on 01/08/19 22:18; Admin Dose 40 MG; Start 01/05/19 at 21:00 Bisacodyl (Dulcolax) 10 mg BID PRN PO CONSTIPATION Last administered on 01/09/19 07:52; Admin Dose 10 MG; Start 01/05/19 at 08:00 Ferrous Sulfate (Ferrous Sulfate (Ec)) 325 mg BID PO Last administered on 01/09/19 07:52; Admin Dose 325 MG; Start 01/05/19 at 09:00 Folic Acid (Folic Acid) 1 mg DAILY PO Last administered on 01/09/19 07:52; Admin Dose 1 MG; Start 01/05/19 at 09:00 Insulin Glargine (Lantus) 10 units QHS SC Last administered on 01/08/19 22:25; Admin Dose 10 UNITS; Start 01/05/19 at 21:00 Levothyroxine Sodium (Synthroid) 125 mcg BEFORE BREAKFAST PO Last administered on 01/09/19 06:32; Admin Dose 125 MCG; Start 01/06/19 at 07:00 Metoprolol Tartrate (Lopressor) 50 mg BID PO Last administered on 01/09/19 07:53; Admin Dose 50 MG; Start 01/05/19 at 09:00 Nitroglycerin (Nitroglycerin (Sl Tab) 0.4 Mg) 0.4 tab Q5M PRN SL CHEST PAIN; Start 01/05/19 at 08:00 Polyethylene Glycol (Miralax) 17 gm DAILY PO Last administered on 01/09/19 07:53; Admin Dose 17 GM; Start 01/05/19 at 09:00 Pregabalin (Lyrica) 25 mg TID PO Last administered on 01/09/19 12:12; Admin Dose 25 MG; Start 01/05/19 at 09:00 Terazosin HCl (Hytrin) 10 mg HS PO Last administered on 01/08/19 22:18; Admin Dose 10 MG; Start 01/05/19 at 21:00 Levofloxacin/ Dextrose 100 ml @ 100 mls/hr Q48H IVPB Last administered on 12/23 07:54; Admin Dose 100 MLS/HR; Start 01/05/19 at 09:00 Latanoprost (Xalatan) 1 drop HS BOTH EYES Last administered on 01/08/19 22:18; Admin Dose 1 DROP; Start 01/05/19 at 21:00 Nystatin/ Triamcinolone Acetonide (Mycolog Cr) 1 applic BID TOP Last administered on 01/09/19 07:53; Admin Dose 1 APPLIC; Start 01/05/19 at 21:00 Acetaminophen/ Hydrocodone Bitart ([place] (5/325)) 1 tab Q6H PRN PO MODERATE PAIN LEVEL 4-6 Last administered on 01/09/19 09:03; Admin Dose 1 TAB; Start 01/05/19 at 14:30 Doxycycline Hyclate 100 mg/ Sodium Chloride 250 ml @ 250 mls/hr Q12 IVPB Last administered on 01/09/19 09:03; Admin Dose 250 MLS/HR; Start 01/05/19 at 21:00 Caspofungin 50 mg/ Sodium Chloride 250 ml @ 250 mls/hr Q24H IVPB Last administered on 01/07/19 17:04; Admin Dose 250 MLS/HR; Start 01/06/19 at 15:30; Stop 01/11/19 at 15:29 Nystatin (Nystatin Powder) 1 applic BID TOP Last administered on 01/09/19at 07:53; Admin Dose 1 APPLIC; Start 01/05/19 at 21:00 Miscellaneous Information 1 ea NOTE XX ; Start 01/06/19 at 10:00 Glucose (Glutose) 15 gm Q15M PRN PO DECREASED GLUCOSE; Start 01/06/19 at 10:00 Glucose (Glutose) 22.5 gm Q15M PRN PO DECREASED GLUCOSE; Start 01/06/19 at 10:00 Dextrose (D50w Syringe) 25 ml Q15M PRN IV DECREASED GLUCOSE; Start 01/06/19 at 10:00 Dextrose (D50w Syringe) 50 ml Q15M PRN IV DECREASED GLUCOSE; Start 01/06/19 at 10:00 Glucagon (Glucagen) 1 mg Q15M PRN IM DECREASED GLUCOSE; Start 01/06/19 at 10:00 Glucose (Glutose) 15 gm Q15M PRN BUCCAL DECREASED GLUCOSE; Start 01/06/19 at 10:00 Diagnostic Test (Pha) (Accu-Chek) 1 ea AC MEALS AND BEDTIME XX Last administered on 01/09/19at 11:20; Admin Dose 1 EA; Start 01/06/19 at 17:25 Diagnostic Test (Pha) (Accu-Chek) 1 ea 02 XX ; Start 01/08/19 at 02:00 Insulin Aspart (Novolog Insulin Pen) NOVOLOG *MILD* ALGORITHM WITH MEALS BEDTIME SC Last administered on 01/08/19at 17:40; Admin Dose 1 UNIT; Start at 17:55 Pantoprazole (Protonix Iv) 40 mg DAILY IV Last administered on 01/09/19at 08:07; Admin Dose 40 MG; Start 01/09/19 at 09:00 Dextrose/Sodium Chloride 1,000 ml @ 40 mls/hr Q24H IV Last administered on 01/09/19at 08:58; Admin Dose 40 MLS/HR; Start 01/09/19 at 08:00 Assessment/Plan Hospital Course (Demo Recall) Assessment 1. Anemia of unclear etiology possibly secondary to renal insufficiency 2. Healthcare associated pneumonia 3. Chronic renal insufficiency and cellulitis 4. History of rheumatoid arthritis 5 history of essential hypertension 6. Urinary retention Plan 1. Continue antibiotics per ID. 2. Continue aspiration precautions 3. Consider iron studies and replacement 4. Consider PRBCs. 5. Urology recommendations DIANA MCRAE MD, [facility] Jan 09, 2019 12:41
--- NOTE | 2019-01-09 13:32 | CONS ---
Assessment/Plan Assessment/Plan Hospital Course (Demo Recall) IMPRESSION: 1. Atrial fibrillation, currently rate controlled.-off anticoagulation 2. Possible congestive heart failure by chest x-ray, which will be diastolic, acute on chronic by most recent echo with an EF of 60%. 3. Tricuspid regurgitation, moderate by most recent echo. 4. Acute on chronic renal failure. 5. Possible pneumonia. 6. History of coronary artery disease, status post coronary artery bypass graft surgery. 7. Dyslipidemia. 8. Rheumatoid arthritis. 9. Groin cellulitis. 10. Anemia-worsening requiring transfusions PRBC's 11. Diabetes mellitus. Recc: -Tele -serial ecg's -Continue BB's -Holding anticoagulation in the setting of anemia requiring transfusions -Continue statin -Contnue abx's -pnding endoscopy with GI following Consultation Date/Type/Reason Admit Date/Time Jan 05, 2019 at 00:47 Initial Consult Date 01/08/19 Type of Consult Cardiology Reason for Consultation AF Requesting Provider: CAMPOS CESAR MD Date/Time of Note DATE: 01/09/19 TIME: 13:31 Exam/Review of Systems Vital Signs Vitals Vital Signs Date Temp Pulse Resp B/P (MAP) Pulse Ox O2 O2 Flow FiO2 Time Delivery Rate 01/09/19 97.7 71 18 115/54 94 Nasal 4.0 11:13 (74) Cannula Intake and Output 01/08/19 01/08/19 01/09/19 1515:00 23:00 07:00 IntakeIntake Total 250 ml 400 ml 250 ml BalanceBalance 250 ml 400 ml 250 ml Exam Exam Review of Systems: CONSTITUTIONAL: No fevers, chills. PULMONARY: No sob CARDIOVASCULAR: No chest pain/palpitations GASTROINTESTINAL: No nausea/vomiting. GENITOURINARY: No hematuria/dysuria. MUSCULOSKELETAL: No myagias/arthalgias. PSYCHIATRIC: The patient denies depression. NEUROLOGIC: No weakness Constitutional: alert Psych: no complaints Head: normocephalic ENMT: mucosa pink and moist Neck: supple, jvd (9 cm water) Respiratory: diminished breath sounds Cardiovascular: irregular rhythm Gastrointestinal: soft, non-tender Musculoskeletal: muscle weakness (mild generalized) Extremities: edema (none) Neurological: other (No focal deficits) Labs Result Diagram: 01/09/19 0700 01/09/19 0700 Results 24hrs Laboratory Tests Test 01/08/19 17:15 01/08/19 21:00 01/08/19 22:15 01/09/19 07:00 Bedside Glucose 149 129 Urine Color YELLOW Urine Clarity CLEAR Urine pH 5.0 Urine Specific 1.017 [place] Urine Ketones TRACE A Urine Nitrite NEGATIVE Urine Bilirubin NEGATIVE Urine Urobilinogen 1+ H Urine Leukocyte NEGATIVE Esterase Urine Eosinophils % 0.0 Urine Hemoglobin NEGATIVE Urine Random Sodium < 13 L Urine Glucose NEGATIVE Urine Total Protein NEGATIVE White Blood Count 10.6 Red Blood Count 2.43 L Hemoglobin 7.0 L Hematocrit 21.7 L Mean Corpuscular 89.3 Volume Mean Corpuscular 28.8 L Hemoglobin Mean Corpuscular 32.3 Hemoglobin Concent Red Cell 16.4 H Distribution Width Platelet Count 257 # Mean Platelet Volume 10.4 Immature 0.700 H Granulocytes % Neutrophils % 79.5 H Lymphocytes % 10.4 L Monocytes % 9.0 Eosinophils % 0.4 Basophils % 0.0 Nucleated Red Blood 0.2 H Cells % Immature 0.070 H Granulocytes # Neutrophils # 8.5 H Lymphocytes # 1.1 Monocytes # 1.0 H Eosinophils # 0.0 Basophils # 0.0 Nucleated Red Blood 0.0 Cells # Sodium Level 133 L Potassium Level 4.9 Chloride Level 104 Carbon Dioxide Level 18 L Anion Gap 11 Blood Urea Nitrogen 55 H Creatinine 2.95 H Est Glomerular Filtrat Rate mL/min Glucose Level 55 #L Calcium Level 7.8 L Phosphorus Level 4.0 Magnesium Level 2.1 Test 01/09/19 07:42 01/09/19 12:24 Bedside Glucose 78 73 Medications Medications Current Medications IV Flush (NS 3 ml) 3 ml PER PROTOCOL IV ; Start 01/05/19 at 08:00 Acetaminophen (Tylenol Tab) 650 mg Q6H PRN PO .PAIN 1-3 OR TEMP Last administered on 01/05/19at 21:42; Admin Dose 650 MG; Start 01/05/19 at 08:00 Albuterol/ Ipratropium (Duoneb) 3 ml Q2H RESP THERAPY PRN HHN SHORTNESS OF BREATH; Start 01/05/19 at 08:00 Atorvastatin Calcium (Lipitor) 40 mg QHS PO Last administered on 01/08/19at 22:18; Admin Dose 40 MG; Start 01/05/19 at 21:00 Bisacodyl (Dulcolax) 10 mg BID PRN PO CONSTIPATION Last administered on 01/09/19 07:52; Admin Dose 10 MG; Start 01/05/19 at 08:00 Ferrous Sulfate (Ferrous Sulfate (Ec)) 325 mg BID PO Last administered on 01/09/19 07:52; Admin Dose 325 MG; Start 01/05/19 at 09:00 Folic Acid (Folic Acid) 1 mg DAILY PO Last administered on 01/09/19 07:52; Admin Dose 1 MG; Start 01/05/19 at 09:00 Insulin Glargine (Lantus) 10 units QHS SC Last administered on 01/08/19 22:25; Admin Dose 10 UNITS; Start 01/05/19 at 21:00 Levothyroxine Sodium (Synthroid) 125 mcg BEFORE BREAKFAST PO Last administered on 01/09/19 06:32; Admin Dose 125 MCG; Start 01/06/19 at 07:00 Metoprolol Tartrate (Lopressor) 50 mg BID PO Last administered on 01/09/19 07:53; Admin Dose 50 MG; Start 01/05/19 at 09:00 Nitroglycerin (Nitroglycerin (Sl Tab) 0.4 Mg) 0.4 tab Q5M PRN SL CHEST PAIN; Start 01/05/19 at 08:00 Polyethylene Glycol (Miralax) 17 gm DAILY PO Last administered on 01/09/19 07:53; Admin Dose 17 GM; Start 01/05/19 at 09:00 Pregabalin (Lyrica) 25 mg TID PO Last administered on 01/09/19 12:12; Admin Dose 25 MG; Start 01/05/19 at 09:00 Terazosin HCl (Hytrin) 10 mg HS PO Last administered on 01/08/19 22:18; Admin Dose 10 MG; Start 01/05/19 at 21:00 Levofloxacin/ Dextrose 100 ml @ 100 mls/hr Q48H IVPB Last administered on 01/09/19 07:54; Admin Dose 100 MLS/HR; Start 01/05/19 at 09:00 Latanoprost (Xalatan) 1 drop HS BOTH EYES Last administered on 01/08/19 22:18; Admin Dose 1 DROP; Start 01/05/19 at 21:00 Nystatin/ Triamcinolone Acetonide (Mycolog Cr) 1 applic BID TOP Last administered on 01/09/19at 07:53; Admin Dose 1 APPLIC; Start 01/05/19 at 21:00 Acetaminophen/ Hydrocodone Bitart ([place] (5/325)) 1 tab Q6H PRN PO MODERATE PAIN LEVEL 4-6 Last administered on 01/09/19at 09:03; Admin Dose 1 TAB; Start 01/05/19 at 14:30 Doxycycline Hyclate 100 mg/ Sodium Chloride 250 ml @ 250 mls/hr Q12 IVPB Last administered on 01/09/19at 09:03; Admin Dose 250 MLS/HR; Start 01/05/19 at 21:00 Caspofungin 50 mg/ Sodium Chloride 250 ml @ 250 mls/hr Q24H IVPB Last administered on 01/07/19at 17:04; Admin Dose 250 MLS/HR; Start 01/06/19 at 15:30; Stop 01/11/19 at 15:29 Nystatin (Nystatin Powder) 1 applic BID TOP Last administered on 01/09/19at 0 7:53; Admin Dose 1 APPLIC; Start 01/05/19 at 21:00 Miscellaneous Information 1 ea NOTE XX ; Start 01/06/19 at 10:00 Glucose (Glutose) 15 gm Q15M PRN PO DECREASED GLUCOSE; Start 01/06/19 at 10:00 Glucose (Glutose) 22.5 gm Q15M PRN PO DECREASED GLUCOSE; Start 01/06/19 at 10:00 Dextrose (D50w Syringe) 25 ml Q15M PRN IV DECREASED GLUCOSE; Start 01/06/19 at 10:00 Dextrose (D50w Syringe) 50 ml Q15M PRN IV DECREASED GLUCOSE; Start 01/06/19 at 10:00 Glucagon (Glucagen) 1 mg Q15M PRN IM DECREASED GLUCOSE; Start 01/06/19 at 10:00 Glucose (Glutose) 15 gm Q15M PRN BUCCAL DECREASED GLUCOSE; Start 01/06/19 at 10:00 Diagnostic Test (Pha) (Accu-Chek) 1 ea AC MEALS AND BEDTIME XX Last administered on 01/09/19at 11:20; Admin Dose 1 EA; Start 01/06/19 at 17:25 Diagnostic Test (Pha) (Accu-Chek) 1 ea 02 XX ; Start 01/08/19 at 02:00 Insulin Aspart (Novolog Insulin Pen) NOVOLOG *MILD* ALGORITHM WITH MEALS BEDTIME SC Last administered on 01/08/19at 17:40; Admin Dose 1 UNIT; Start 01/07/19 at 17:55 Pantoprazole (Protonix Iv) 40 mg DAILY IV Last administered on 01/09/19at 08:07; Admin Dose 40 MG; Start 01/09/19 at 09:00 Dextrose/Sodium Chloride 1,000 ml @ 40 mls/hr Q24H IV Last administered on 12/23 08:58; Admin Dose 40 MLS/HR; Start 01/09/19 at 08:00 MARJORIE JAIN Jan 09, 2019 13:32
--- NOTE | 2019-01-09 13:52 | CONS ---
Assessment/Plan Assessment/Plan Hospital Course (Demo Recall) #Anemia -pt is noted to have severe iron deficiency. will start IV Ferrlecit x 5 days -negative FOBT is noted but patient should likely undergo GI workup given that he has never had a colonoscopy in the past and is so profoundly iron deficient. scheduled for EGD and colonoscopy -need to completed the anemia workup at this time -Vitamin b12 / folate are within normal limits. but will check MMA and homocysteine levels to ensure no evidence of vitamin b12 or folate deficiency -TSH wnl which rule out thyroid dysfunction -r/o monoclonal gammopathy, check spep -hemolysis unlikely given normal haptoglobin and LDH, -given CKD will check, will check epo level to see if patient would benefit from procrit #Sepsis - 2/2 to pneumonia. -pt noted to have an elevated lactate -continue Levaquin #COPD -on O2 #Bilateral groin cellulitis -on nystatin Thank you for the opportunity to participate in this patients care A total of 40 minutes of face to face time was spent speaking with the patient, of which greater than 50% was spent in counseling and coordination of care and the detailed question and answer session. Consultation Date/Type/Reason Admit Date/Time Jan 05, 2019 at 00:47 Initial Consult Date 01/08/19 Type of Consult Hematology Reason for Consultation anemia Requesting Provider: CAMPOS CESAR MD Date/Time of Note DATE: 01/09/19 TIME: 13:48 24 HR Interval Summary Free Text/Dictation pt scheduled for EGD and colonoscopy Exam/Review of Systems Exam Vitals Vital Signs Date Temp Pulse Resp B/P (MAP) Pulse Ox O2 O2 Flow FiO2 Time Delivery Rate 01/09/19 74 13:41 01/09/19 97.7 18 115/54 94 Nasal 4.0 11:13 (74) Cannula Intake and Output 01/08/19 01/08/19 01/09/19 1515:00 23:00 07:00 IntakeIntake Total 250 ml 400 ml 250 ml BalanceBalance 250 ml 400 ml 250 ml Constitutional: alert, oriented, distress, frail Psych: anxiety Head: normocephalic Eyes: nl conjunctiva ENMT: nl external ears & nose Neck: supple Respiratory: clear to auscultation Cardiovascular: regular rate and rhythm Gastrointestinal: soft Musculoskeletal: nl extremities to inspection Results Result Diagram: 01/09/19 0700 01/09/19 0700 Results 24hrs Laboratory Tests Test 01/08/19 17:15 01/08/19 21:00 01/08/19 22:15 01/09/19 07:00 Bedside Glucose 149 129 Urine Color YELLOW Urine Clarity CLEAR Urine pH 5.0 Urine Specific 1.017 [place] Urine Ketones TRACE A Urine Nitrite NEGATIVE Urine Bilirubin NEGATIVE Urine Urobilinogen 1+ H Urine Leukocyte NEGATIVE Esterase Urine Eosinophils % 0.0 Urine Hemoglobin NEGATIVE Urine Random Sodium < 13 L Urine Glucose NEGATIVE Urine Total Protein NEGATIVE White Blood Count 10.6 Red Blood Count 2.43 L Hemoglobin 7.0 L Hematocrit 21.7 L Mean Corpuscular 89.3 Volume Mean Corpuscular 28.8 L Hemoglobin Mean Corpuscular 32.3 Hemoglobin Concent Red Cell 16.4 H Distribution Width Platelet Count 257 # Mean Platelet Volume 10.4 Immature 0.700 H Granulocytes % Neutrophils % 79.5 H Lymphocytes % 10.4 L Monocytes % 9.0 Eosinophils % 0.4 Basophils % 0.0 Nucleated Red Blood 0.2 H Cells % Immature 0.070 H Granulocytes # Neutrophils # 8.5 H Lymphocytes # 1.1 Monocytes # 1.0 H Eosinophils # 0.0 Basophils # 0.0 Nucleated Red Blood 0.0 Cells # Sodium Level 133 L Potassium Level 4.9 Chloride Level 104 Carbon Dioxide Level 18 L Anion Gap 11 Blood Urea Nitrogen 55 H Creatinine 2.95 H Est Glomerular Filtrat Rate mL/min Glucose Level 55 #L Calcium Level 7.8 L Phosphorus Level 4.0 Magnesium Level 2.1 Test 01/09/19 07:42 01/09/19 12:24 Bedside Glucose 78 73 Medications Medication Current Medications IV Flush (NS 3 ml) 3 ml PER PROTOCOL IV ; Start 01/05/19 at 08:00 Acetaminophen (Tylenol Tab) 650 mg Q6H PRN PO .PAIN 1-3 OR TEMP Last administered on 01/05/19at 21:42; Admin Dose 650 MG; Start 01/05/19 at 08:00 Albuterol/ Ipratropium (Duoneb) 3 ml Q2H RESP THERAPY PRN HHN SHORTNESS OF BREATH; Start 01/05/19 at 08:00 Atorvastatin Calcium (Lipitor) 40 mg QHS PO Last administered on 01/08/19at 22:18; Admin Dose 40 MG; Start 01/05/19 at 21:00 Bisacodyl (Dulcolax) 10 mg BID PRN PO CONSTIPATION Last administered on 01/09/19 07:52; Admin Dose 10 MG; Start 01/05/19 at 08:00 Ferrous Sulfate (Ferrous Sulfate (Ec)) 325 mg BID PO Last administered on 01/09/19 07:52; Admin Dose 325 MG; Start 01/05/19 at 09:00 Folic Acid (Folic Acid) 1 mg DAILY PO Last administered on 01/09/19 07:52; Admin Dose 1 MG; Start 01/05/19 at 09:00 Insulin Glargine (Lantus) 10 units QHS SC Last administered on 01/08/19 22:25; Admin Dose 10 UNITS; Start 01/05/19 at 21:00 Levothyroxine Sodium (Synthroid) 125 mcg BEFORE BREAKFAST PO Last administered on 01/09/19 06:32; Admin Dose 125 MCG; Start 01/06/19 at 07:00 Metoprolol Tartrate (Lopressor) 50 mg BID PO Last administered on 01/09/19 07:53; Admin Dose 50 MG; Start 01/05/19 at 09:00 Nitroglycerin (Nitroglycerin (Sl Tab) 0.4 Mg) 0.4 tab Q5M PRN SL CHEST PAIN; Start 01/05/19 at 08:00 Polyethylene Glycol (Miralax) 17 gm DAILY PO Last administered on 01/09/19 07:53; Admin Dose 17 GM; Start 01/05/19 at 09:00 Pregabalin (Lyrica) 25 mg TID PO Last administered on 01/09/19 12:12; Admin Dose 25 MG; Start 01/05/19 at 09:00 Terazosin HCl (Hytrin) 10 mg HS PO Last administered on 01/08/19 22:18; Admin Dose 10 MG; Start 01/05/19 at 21:00 Levofloxacin/ Dextrose 100 ml @ 100 mls/hr Q48H IVPB Last administered on 07:54; Admin Dose 100 MLS/HR; Start 01/05/19 at 09:00 Latanoprost (Xalatan) 1 drop HS BOTH EYES Last administered on 01/08/19 22:18; Admin Dose 1 DROP; Start 01/05/19 at 21:00 Nystatin/ Triamcinolone Acetonide (Mycolog Cr) 1 applic BID TOP Last administered on 01/09/19at 07:53; Admin Dose 1 APPLIC; Start 01/05/19 at 21:00 Acetaminophen/ Hydrocodone Bitart ([place] (5/325)) 1 tab Q6H PRN PO MODERATE PAIN LEVEL 4-6 Last administered on 01/09/19at 09:03; Admin Dose 1 TAB; Start 01/05/19 at 14:30 Doxycycline Hyclate 100 mg/ Sodium Chloride 250 ml @ 250 mls/hr Q12 IVPB Last administered on 01/09/19at 09:03; Admin Dose 250 MLS/HR; Start 01/05/19 at 21:00 Caspofungin 50 mg/ Sodium Chloride 250 ml @ 250 mls/hr Q24H IVPB Last administered on 01/07/19at 17:04; Admin Dose 250 MLS/HR; Start 01/06/19 at 15:30; Stop 01/11/19 at 15:29 Nystatin (Nystatin Powder) 1 applic BID TOP Last administered on 01/09/19at 07:53; Admin Dose 1 APPLIC; Start 01/05/19 at 21:00 Miscellaneous Information 1 ea NOTE XX ; Start 01/06/19 at 10:00 Glucose (Glutose) 15 gm Q15M PRN PO DECREASED GLUCOSE; Start 01/06/19 at 10:00 Glucose (Glutose) 22.5 gm Q15M PRN PO DECREASED GLUCOSE; Start 01/06/19 at 10:00 Dextrose (D50w Syringe) 25 ml Q15M PRN IV DECREASED GLUCOSE; Start 01/06/19 at 10:00 Dextrose (D50w Syringe) 50 ml Q15M PRN IV DECREASED GLUCOSE; Start 01/06/19 at 10:00 Glucagon (Glucagen) 1 mg Q15M PRN IM DECREASED GLUCOSE; Start 01/06/19 at 10:00 Glucose (Glutose) 15 gm Q15M PRN BUCCAL DECREASED GLUCOSE; Start 01/06/19 at 10:00 Diagnostic Test (Pha) (Accu-Chek) 1 ea AC MEALS AND BEDTIME XX Last administered on 01/09/19at 11:20; Admin Dose 1 EA; Start 01/06/19 at 17:25 Diagnostic Test (Pha) (Accu-Chek) 1 ea 02 XX ; Start 01/08/19 at 02:00 Insulin Aspart (Novolog Insulin Pen) NOVOLOG *MILD* ALGORITHM WITH MEALS BEDTIME SC Last administered on 01/08/19at 17:40; Admin Dose 1 UNIT; Start at 17:55 Pantoprazole (Protonix Iv) 40 mg DAILY IV Last administered on 01/09/19at 08:07; Admin Dose 40 MG; Start 01/09/19 at 09:00 Dextrose/Sodium Chloride 1,000 ml @ 40 mls/hr Q24H IV Last administered on 01/09/19at 08:58; Admin Dose 40 MLS/HR; Start 01/09/19 at 08:00 OREN MARSH M.D. Jan 09, 2019 13:52
--- NOTE | 2019-01-09 14:27 | PN ---
Date/Time of Note Date/Time of Note DATE: 01/09/19 TIME: 14:25 Assessment/Plan VTE Prophylaxis Risk score (from Ns)>0 risk: 9 SCD applied (from Ns): Yes Pharmacological prophylaxis: NA/contraindicated Pharm contraindication: low risk/ambulating Lines[facility] Urinary Cath still in place: Yes Reason Cath still needed: urinary retention Assessment/Plan Hospital Course 88-year-old male with 1. Sepsis, more likely 2/2 to pneumonia. lactate are increased to 3.0 and 2.4, Chest Xray showed patchy bilateral perihilar increased interstitial changes, may represent an infectious/inflammatory process versus mild pulmonary vascular congestion. Leucocytosis with left shift of neutrophils. SOB, weakness associated with fevers. Pt had recent pneumonia with fluid overload. Patient also has evidence of scrotal cellulitis. Final report neg for epididmytits 2. COPD, on oxygen at home 3. Acute on chronic renal failure likely secondary to sepsis, on discharge in November creatinine 1.3, on admission 1.93 now worseing kidney function due to AIN vs obstruction 4. Hypertension. However currently normal to hypotensive 5. Hyperlipidemia. 6. Hypothyroidism. 7. Normocytic normochromic chronic anemia now with and severe anemia baseline hemoglobin around -7.5-8's she had been on Eliquis due to A. fib, anemia wup in progress 8. Bilateral groin cellulitis more likely associated with mateus, patches in groin and axilla bilaterally. Back rash. Pt was taken a/b recently 9. History of rheumatoid arthritis. 10. Diabetes type 2. 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 Peripheral vascular disease. 13. Chronic a.fib on anticoagulants held Assessment/Plan -Inserted Wade per urology, APPRECIATED Dr. Rodas assistance -Continue with gentle IV fluids -Under hemoglobin IV iron started -Eliquis should be on hold due to severe anemia -Continue on levofloxacin/doxycycline/caspofungin per ID - ? EGD/ Colonoscopy for anemia today -Nystatin for fungal rash -folLow up with cardiology/pulmonary/GI/ID consults -Renally dose all meds, - Abd US neg - ISS, cw lantus 10, currently n.p.o. on D5 half NS - gi prophylaxis Will transfer to ARU when medically optimised Result Diagram: 01/09/19 0700 01/09/19 0700 Results 24hrs Laboratory Tests Test 01/08/19 17:15 01/08/19 21:00 01/08/19 22:15 01/09/19 07:00 Bedside Glucose 149 129 Urine Color YELLOW Urine Clarity CLEAR Urine pH 5.0 Urine Specific 1.017 Lawn Urine Ketones TRACE A Urine Nitrite NEGATIVE Urine Bilirubin NEGATIVE Urine Urobilinogen 1+ H Urine Leukocyte NEGATIVE Esterase Urine Eosinophils % 0.0 Urine Hemoglobin NEGATIVE Urine Random Sodium < 13 L Urine Glucose NEGATIVE Urine Total Protein NEGATIVE White Blood Count 10.6 Red Blood Count 2.43 L Hemoglobin 7.0 L Hematocrit 21.7 L Mean Corpuscular 89.3 Volume Mean Corpuscular 28.8 L Hemoglobin Mean Corpuscular 32.3 Hemoglobin Concent Red Cell 16.4 H Distribution Width Platelet Count 257 # Mean Platelet Volume 10.4 Immature 0.700 H Granulocytes % Neutrophils % 79.5 H Lymphocytes % 10.4 L Monocytes % 9.0 Eosinophils % 0.4 Basophils % 0.0 Nucleated Red Blood 0.2 H Cells % Immature 0.070 H Granulocytes # Neutrophils # 8.5 H Lymphocytes # 1.1 Monocytes # 1.0 H Eosinophils # 0.0 Basophils # 0.0 Nucleated Red Blood 0.0 Cells # Sodium Level 133 L Potassium Level 4.9 Chloride Level 104 Carbon Dioxide Level 18 L Anion Gap 11 Blood Urea Nitrogen 55 H Creatinine 2.95 H Est Glomerular Filtrat Rate mL/min Glucose Level 55 #L Calcium Level 7.8 L Phosphorus Level 4.0 Magnesium Level 2.1 Test 01/09/19 07:42 01/09/19 12:24 Bedside Glucose 78 73 Subjective 24 Hr Interval Summary Free Text/Dictation And had a difficult Wade placement yesterday Currently on fluids is n.p.o. EGD and colonoscopy possibly today Exam/Review of Systems Exam Vitals Vital Signs Date Temp Pulse Resp B/P (MAP) Pulse Ox O2 O2 Flow FiO2 Time Delivery Rate 01/09/19 74 13:41 01/09/19 97.7 18 115/54 94 Nasal 4.0 11:13 (74) Cannula Intake and Output 01/08/19 01/08/19 01/09/19 1515:00 23:00 07:00 IntakeIntake Total 250 ml 400 ml 250 ml BalanceBalance 250 ml 400 ml 250 ml Exam Constitutional: alert, oriented, deconditioned Head: normocephalic ENMT: nl external ears & nose Neck: supple Respiratory: diminished breath sounds, other (on chronic oxygen) Cardiovascular: regular rate and rhythm (a.fib) Gastrointestinal: soft, nl liver, spleen, non-tender, bowel sounds, distended, firm, hepatomegaly, mass, rebound or guarding, splenomegaly, surgical scars, tender, other Genitourinary - Male: CVA tenderness, other (swollen testicules); No nl penis, No nl scrotum, No discharge, abdominal distension Skin: other (skin cellulitis bilateral groin, axilla) Skin changes with scaling Abdominal distention MULTIPLE joint deformities Results Results 24hrs Laboratory Tests Test 01/08/19 17:15 01/08/19 21:00 01/08/19 22:15 01/09/19 07:00 Bedside Glucose 149 129 Urine Color YELLOW Urine Clarity CLEAR Urine pH 5.0 Urine Specific 1.017 Lawn Urine Ketones TRACE A Urine Nitrite NEGATIVE Urine Bilirubin NEGATIVE Urine Urobilinogen 1+ H Urine Leukocyte NEGATIVE Esterase Urine Eosinophils % 0.0 Urine Hemoglobin NEGATIVE Urine Random Sodium < 13 L Urine Glucose NEGATIVE Urine Total Protein NEGATIVE White Blood Count 10.6 Red Blood Count 2.43 L Hemoglobin 7.0 L Hematocrit 21.7 L Mean Corpuscular 89.3 Volume Mean Corpuscular 28.8 L Hemoglobin Mean Corpuscular 32.3 Hemoglobin Concent Red Cell 16.4 H Distribution Width Platelet Count 257 # Mean Platelet Volume 10.4 Immature 0.700 H Granulocytes % Neutrophils % 79.5 H Lymphocytes % 10.4 L Monocytes % 9.0 Eosinophils % 0.4 Basophils % 0.0 Nucleated Red Blood 0.2 H Cells % Immature 0.070 H Granulocytes # Neutrophils # 8.5 H Lymphocytes # 1.1 Monocytes # 1.0 H Eosinophils # 0.0 Basophils # 0.0 Nucleated Red Blood 0.0 Cells # Sodium Level 133 L Potassium Level 4.9 Chloride Level 104 Carbon Dioxide Level 18 L Anion Gap 11 Blood Urea Nitrogen 55 H Creatinine 2.95 H Est Glomerular Filtrat Rate mL/min Glucose Level 55 #L Calcium Level 7.8 L Phosphorus Level 4.0 Magnesium Level 2.1 Test 01/09/19 07:42 01/09/19 12:24 Bedside Glucose 78 73 Medications Medication Current Medications IV Flush (NS 3 ml) 3 ml PER PROTOCOL IV ; Start 01/05/19 at 08:00 Acetaminophen (Tylenol Tab) 650 mg Q6H PRN PO .PAIN 1-3 OR TEMP Last administered on 01/05/19 21:42; Admin Dose 650 MG; Start 01/05/19 at 08:00 Albuterol/ Ipratropium (Duoneb) 3 ml Q2H RESP THERAPY PRN HHN SHORTNESS OF BREATH; Start 01/05/19 at 08:00 Atorvastatin Calcium (Lipitor) 40 mg QHS PO Last administered on 01/08/19 22:18; Admin Dose 40 MG; Start 01/05/19 at 21:00 Bisacodyl (Dulcolax) 10 mg BID PRN PO CONSTIPATION Last administered on 01/09/19 07:52; Admin Dose 10 MG; Start 01/05/19 at 08:00 Ferrous Sulfate (Ferrous Sulfate (Ec)) 325 mg BID PO Last administered on 01/09/19 07:52; Admin Dose 325 MG; Start 01/05/19 at 09:00 Folic Acid (Folic Acid) 1 mg DAILY PO Last administered on 01/09/19 07:52; Admin Dose 1 MG; Start 01/05/19 at 09:00 Insulin Glargine (Lantus) 10 units QHS SC Last administered on 01/08/19 22:25; Admin Dose 10 UNITS; Start 01/05/19 at 21:00 Levothyroxine Sodium (Synthroid) 125 mcg BEFORE BREAKFAST PO Last administered on 01/09/19 06:32; Admin Dose 125 MCG; Start 01/06/19 at 07:00 Metoprolol Tartrate (Lopressor) 50 mg BID PO Last administered on 01/09/19 07:53; Admin Dose 50 MG; Start 01/05/19 at 09:00 Nitroglycerin (Nitroglycerin (Sl Tab) 0.4 Mg) 0.4 tab Q5M PRN SL CHEST PAIN; Start 01/05/19 at 08:00 Polyethylene Glycol (Miralax) 17 gm DAILY PO Last administered on 01/09/19 07:53; Admin Dose 17 GM; Start 01/05/19 at 09:00 Pregabalin (Lyrica) 25 mg TID PO Last administered on 01/09/19 12:12; Admin Dose 25 MG; Start 01/05/19 at 09:00 Terazosin HCl (Hytrin) 10 mg HS PO Last administered on 01/08/19 22:18; Admin Dose 10 MG; Start 01/05/19 at 21:00 Levofloxacin/ Dextrose 100 ml @ 100 mls/hr Q48H IVPB Last administered on 01/09/19 07:54; Admin Dose 100 MLS/HR; Start 01/05/19 at 09:00 Latanoprost (Xalatan) 1 drop HS BOTH EYES Last administered on 01/08/19 22:18; Admin Dose 1 DROP; Start 01/05/19 at 21:00 Nystatin/ Triamcinolone Acetonide (Mycolog Cr) 1 applic BID TOP Last administered on 01/09/19 07:53; Admin Dose 1 APPLIC; Start 01/05/19 at 21:00 Acetaminophen/ Hydrocodone Bitart ([place] (5/325)) 1 tab Q6H PRN PO MODERATE PAIN LEVEL 4-6 Last administered on 01/09/19 09:03; Admin Dose 1 TAB; Start 01/05/19 at 14:30 Doxycycline Hyclate 100 mg/ Sodium Chloride 250 ml @ 250 mls/hr Q12 IVPB Last administered on 01/09/19 09:03; Admin Dose 250 MLS/HR; Start 01/05/19 at 21:00 Caspofungin 50 mg/ Sodium Chloride 250 ml @ 250 mls/hr Q24H IVPB Last administered on 01/07/19 17:04; Admin Dose 250 MLS/HR; Start 01/06/19 at 15:30; Stop 01/11/19 at 15:29 Nystatin (Nystatin Powder) 1 applic BID TOP Last administered on 01/09/19 07: 53; Admin Dose 1 APPLIC; Start 01/05/19 at 21:00 Miscellaneous Information 1 ea NOTE XX ; Start 01/06/19 at 10:00 Glucose (Glutose) 15 gm Q15M PRN PO DECREASED GLUCOSE; Start 01/06/19 at 10:00 Glucose (Glutose) 22.5 gm Q15M PRN PO DECREASED GLUCOSE; Start 01/06/19 at 10:00 Dextrose (D50w Syringe) 25 ml Q15M PRN IV DECREASED GLUCOSE; Start 01/06/19 at 10:00 Dextrose (D50w Syringe) 50 ml Q15M PRN IV DECREASED GLUCOSE; Start 01/06/19 at 10:00 Glucagon (Glucagen) 1 mg Q15M PRN IM DECREASED GLUCOSE; Start 01/06/19 at 10:00 Glucose (Glutose) 15 gm Q15M PRN BUCCAL DECREASED GLUCOSE; Start 01/06/19 at 10:00 Diagnostic Test (Pha) (Accu-Chek) 1 ea AC MEALS AND BEDTIME XX Last administered on 01/09/19at 11:20; Admin Dose 1 EA; Start 01/06/19 at 17:25 Diagnostic Test (Pha) (Accu-Chek) 1 ea 02 XX ; Start 01/08/19 at 02:00 Insulin Aspart (Novolog Insulin Pen) NOVOLOG *MILD* ALGORITHM WITH MEALS BEDTIME SC Last administered on 01/08/19at 17:40; Admin Dose 1 UNIT; Start 01/07/19 at 17:55 Pantoprazole (Protonix Iv) 40 mg DAILY IV Last administered on 01/09/19at 08:07; Admin Dose 40 MG; Start 01/09/19 at 09:00 Dextrose/Sodium Chloride 1,000 ml @ 40 mls/hr Q24H IV Last administered on 01/09/19at 08:58; Admin Dose 40 MLS/HR; Start 01/09/19 at 08:00 Ferric Sodium Gluconate Complex 125 mg/Sodium Chloride 110 ml @ 110 mls/hr DAILY@1300 IVPB ; Start 01/10/19 at 13:00; Stop 01/14/19 at 13:59 IVAN AKHTAR MD Jan 09, 2019 14:27
[2019-01-09] MEDS: CASPOFUNGIN 50 MG in SOD CHLORIDE 0.9% 250 ML IVPB SCH (15:59)
--- NOTE | 2019-01-09 17:44 | PREAC ---
Date/Time of Note Date/Time of Note DATE: 01/09/19 TIME: 17:42 Anesthesia Eval and Record Evaluation Time Pre-Procedure Interview DATE: 01/09/19 TIME: 17:42 Age 88 Sex male NPO: 8 hrs Preoperative diagnosis anemia Planned procedure egd and colon Past Medical History Past Medical History: Includes Cardio: HTN, Dyslipidemia, CAD, Arrythmia Endo: Hypothyroid Pulm: COPD Musculoskeletal: Rheumatoid arthritis Renal: CKD Surgery & Anesthesia Issues No known issue Meds Anticoagulation: No Beta Jose within 24 hr: No Reason Beta Jose not given: Pt. not on B-Jose Active Scripts Apixaban* (Eliquis*) 5 Mg Tablet, 2.5 MG PO BID for 30 Days, TAB Prov:IVAN AKHTAR MD 12/20/18 Metoprolol Tartrate* (Lopressor*) 50 Mg Tab, 50 MG PO BID for 30 Days, TAB Prov:COOPER CARO 12/20/18 Reported Medications Furosemide* (Lasix*) 20 Mg Tablet, 20 MG PO BID, TAB 01/05/19 Polyethylene Glycol* (Miralax*) 17 Gm Powd.pack, 17 GM PO DAILY, #30 PACKET 12/15/18 Nifedipine* (Nifedipine ER*) 60 Mg Tablet.sa, 60 MG PO DAILY, TAB.SA 12/15/18 Bisacodyl* (Bisacodyl*) 5 Mg Tablet.dr, 10 MG PO BID PRN for CONSTIPATION, TAB 12/15/18 Pregabalin* (Lyrica*) 25 Mg Capsule, 25 MG PO TID, CAP 12/15/18 Bimatoprost* (Lumigan*) 0.01%-5 Ml Opht Drops, 1 DROP BOTH EYES HS, EA 03/02/18 Cetirizine Hcl* (Cetirizine Hcl*) 10 Mg Tablet, 10 MG PO DAILY, #30 TAB 03/02/18 Insulin Glargine* (Lantus*) 100 Unit/Ml Soln, 10 UNIT SC QHS, #1 VIAL 03/02/18 Ergocalciferol (Vitamin D2) (VITAMIN D2) 2,000 Unit Tablet, 2000 UNIT PO DAILY, TAB 03/02/18 Famotidine* (Famotidine*) 20 Mg Tablet, 20 MG PO DAILY, #30 TAB 03/02/18 Ferrous Sulfate* (Ferrous Sulfate*) 325 Mg Tabec, 325 MG PO BID, TAB 03/02/18 Nitroglycerin* (Nitrostat*) 0.4 Mg Tab.subl, 0.4 MG SL Q5MIN PRN for CHEST PAIN, BOTTLE 03/02/18 Terazosin Hcl* (Terazosin Hcl*) 10 Mg Capsule, 10 MG PO HS, CAP 03/02/18 Levothyroxine Sodium* (Levoxyl*) 125 Mcg Tablet, 125 MCG PO BEFORE BREAKFAST, #30 TAB 03/02/18 Allopurinol* (Allopurinol*) 100 Mg Tablet, 100 MG PO BID, TAB 03/02/18 Atorvastatin* (Atorvastatin*) 40 Mg Tablet, 40 MG PO QHS, #30 TAB 03/02/18 Folic Acid* (Folic Acid*) 1 Mg Tablet, 1 MG PO DAILY, TAB 03/02/18 Discontinued Scripts Methylprednisolone* (Medrol* DOSE PACK) 4 Mg/Dose-Pack Tab.ds.pk, 4 MG PO . DIRECTED for 7 Days, PACKET Prov:IVAN AKHTAR MD 12/20/18 Doxycycline Monohydrate (Doxycycline Monohydrate) 100 Mg Capsule, 100 MG PO BID for 5 Days, CAP Prov:COOPER CARO 12/20/18 Levofloxacin* (Levaquin*) 500 Mg Tablet, 500 MG PO DAILY for 5 Days, TAB Prov:COOPER CARO 12/20/18 Current Medications IV Flush (NS 3 ml) 3 ml PER PROTOCOL IV ; Start 01/05/19 at 08:00 Acetaminophen (Tylenol Tab) 650 mg Q6H PRN PO .PAIN 1-3 OR TEMP Last administered on 01/05/19at 21:42; Admin Dose 650 MG; Start 01/05/19 at 08:00 Albuterol/ Ipratropium (Duoneb) 3 ml Q2H RESP THERAPY PRN HHN SHORTNESS OF BREATH; Start 01/05/19 at 08:00 Atorvastatin Calcium (Lipitor) 40 mg QHS PO Last administered on 01/08/19at 22:18; Admin Dose 40 MG; Start 01/05/19 at 21:00 Bisacodyl (Dulcolax) 10 mg BID PRN PO CONSTIPATION Last administered on 01/09/19at 07:52; Admin Dose 10 MG; Start 01/05/19 at 08:00 Ferrous Sulfate (Ferrous Sulfate (Ec)) 325 mg BID PO Last administered on 01/09/19 07:52; Admin Dose 325 MG; Start 01/05/19 at 09:00 Folic Acid (Folic Acid) 1 mg DAILY PO Last administered on 01/09/19 07:52; Admin Dose 1 MG; Start 01/05/19 at 09:00 Insulin Glargine (Lantus) 10 units QHS SC Last administered on 01/08/19 22:25; Admin Dose 10 UNITS; Start 01/05/19 at 21:00 Levothyroxine Sodium (Synthroid) 125 mcg BEFORE BREAKFAST PO Last administered on 01/09/19 06:32; Admin Dose 125 MCG; Start 01/06/19 at 07:00 Metoprolol Tartrate (Lopressor) 50 mg BID PO Last administered on 01/09/19 07:53; Admin Dose 50 MG; Start 01/05/19 at 09:00 Nitroglycerin (Nitroglycerin (Sl Tab) 0.4 Mg) 0.4 tab Q5M PRN SL CHEST PAIN; Start 01/05/19 at 08:00 Polyethylene Glycol (Miralax) 17 gm DAILY PO Last administered on 01/09/19 07:53; Admin Dose 17 GM; Start 01/05/19 at 09:00 Pregabalin (Lyrica) 25 mg TID PO Last administered on 01/09/19 12:12; Admin Dose 25 MG; Start 01/05/19 at 09:00 Terazosin HCl (Hytrin) 10 mg HS PO Last administered on 01/08/19 22:18; Admin Dose 10 MG; Start 01/05/19 at 21:00 Levofloxacin/ Dextrose 100 ml @ 100 mls/hr Q48H IVPB Last administered on 01/09/19 07:54; Admin Dose 100 MLS/HR; Start 01/05/19 at 09:00 Latanoprost (Xalatan) 1 drop HS BOTH EYES Last administered on 01/08/19 22:18; Admin Dose 1 DROP; Start 01/05/19 at 21:00 Nystatin/ Triamcinolone Acetonide (Mycolog Cr) 1 applic BID TOP Last administer ed on 01/09/19 07:53; Admin Dose 1 APPLIC; Start 01/05/19 at 21:00 Acetaminophen/ Hydrocodone Bitart ([place] (5/325)) 1 tab Q6H PRN PO MODERATE PAIN LEVEL 4-6 Last administered on 01/09/19at 09:03; Admin Dose 1 TAB; Start 01/05/19 at 14:30 Doxycycline Hyclate 100 mg/ Sodium Chloride 250 ml @ 250 mls/hr Q12 IVPB Last administered on 01/09/19at 09:03; Admin Dose 250 MLS/HR; Start 01/05/19 at 21:00 Caspofungin 50 mg/ Sodium Chloride 250 ml @ 250 mls/hr Q24H IVPB Last administered on 01/09/19at 15:59; Admin Dose 250 MLS/HR; Start 01/06/19 at 15:30; Stop 01/11/19 at 15:29 Nystatin (Nystatin Powder) 1 applic BID TOP Last administered on 01/09/19at 07:53; Admin Dose 1 APPLIC; Start 01/05/19 at 21:00 Miscellaneous Information 1 ea NOTE XX ; Start 01/06/19 at 10:00 Glucose (Glutose) 15 gm Q15M PRN PO DECREASED GLUCOSE; Start 01/06/19 at 10:00 Glucose (Glutose) 22.5 gm Q15M PRN PO DECREASED GLUCOSE; Start 01/06/19 at 10:00 Dextrose (D50w Syringe) 25 ml Q15M PRN IV DECREASED GLUCOSE; Start 01/06/19 at 10:00 Dextrose (D50w Syringe) 50 ml Q15M PRN IV DECREASED GLUCOSE; Start 01/06/19 at 10:00 Glucagon (Glucagen) 1 mg Q15M PRN IM DECREASED GLUCOSE; Start 01/06/19 at 10:00 Glucose (Glutose) 15 gm Q15M PRN BUCCAL DECREASED GLUCOSE; Start 01/06/19 at 10:00 Diagnostic Test (Pha) (Accu-Chek) 1 ea AC MEALS AND BEDTIME XX Last administered on 01/09/19at 11:20; Admin Dose 1 EA; Start 01/06/19 at 17:25 Diagnostic Test (Pha) (Accu-Chek) 1 ea 02 XX ; Start 01/08/19 at 02:00 Insulin Aspart (Novolog Insulin Pen) NOVOLOG *MILD* ALGORITHM WITH MEALS BEDTIME SC Last administered on 01/08/19at 17:40; Admin Dose 1 UNIT; Start 01/07/19 at 17:55 Pantoprazole (Protonix Iv) 40 mg DAILY IV Last administered on 01/09/19at 08:07; Admin Dose 40 MG; Start 01/09/19 at 09:00 Dextrose/Sodium Chloride 1,000 ml @ 40 mls/hr Q24H IV Last administered on 01/09/19at 08:58; Admin Dose 40 MLS/HR; Start 01/09/19 at 08:00 Ferric Sodium Gluconate Complex 125 mg/Sodium Chloride 110 ml @ 110 mls/hr DAILY@1300 IVPB ; Start 01/10/19 at 13:00; Stop 01/14/19 at 13:59 Meds reviewed: Yes Allergies Coded Allergies: Penicillins (Verified Allergy, Severe, shortness of breath, 01/05/19) Sulfa (Sulfonamide Antibiotics) (Verified Allergy, Severe, Shortness of breath, 01/05/19) sulfadiazine (Verified Allergy, Severe, shortness of breath, 01/05/19) Allergies Reviewed: Yes Labs/Studies Labs Reviewed: Reviewed by anesthesiologist Result Diagram: 01/09/19 0700 01/09/19 0700 Laboratory Tests 01/09/19 07:00 test: N/A Studies: ECG, CXR Pre-procedure Exam Last vitals Vital Signs Date Temp Pulse Resp B/P (MAP) Pulse Ox O2 O2 Flow FiO2 Time Delivery Rate 01/09/19 98.0 87 15 119/56 98 Room Air 17:04 (77) 01/09/19 4.0 15:17 Airway: Adequate mouth opening, Adequate thyromental dist Mallampati: Mallampati II Teeth: Normal Lung: Normal Heart: Normal ASA Physical Status ASA physical status: 3 Emergency: None Planned Anesthetic General/MAC: MAC Planned Pain Management Parenteral pain med Pre-operative Attestations Prior to commencing anesthesia and surgery, the patient was re-evaluated, there was verification of: *The patient's identity *The results of appropriate recent lab work and preoperative vital signs *The above evaluation not changing prior to induction *Anesthetic plan, risk benefits, alternative and complications discussed with patient/family; questions answered; patient/family understands, accepts and wishes to proceed. GIULIANO GIELS Jan 09, 2019 17:44
[2019-01-09] MEDS ORDERED: PROPOFOL 60 ML ONE (17:45)
[2019-01-09] MEDS ORDERED: LIDOCAINE 2% (SDV) 5 ML INJ ONE (17:45)
--- NOTE | 2019-01-09 18:22 | PAC ---
Date/Time of Note Date/Time of Note DATE: 01/09/19 TIME: 18:22 Post-Anesthesia Notes Post-Anesthesia Note Last documented vital signs Vital Signs Date Temp Pulse Resp B/P (MAP) Pulse Ox O2 O2 Flow FiO2 Time Delivery Rate 01/09/19 98.0 87 15 119/56 98 Room Air 1821 (77) 01/09/19 4.0 15:17 Activity: WNL Respiratory function: WNL Cardiovascular function: WNL Mental status: Baseline Pain reasonably controlled: Yes Hydration appropriate: Yes Nausea/Vomiting absent: Yes GIULIANO GILES Jan 09, 2019 18:22
[2019-01-09] MEDS ORDERED: EPHEDrine SULFATE 50 MG/5 ML SYG IV PRN (18:30)
[2019-01-09] MEDS ORDERED: METOCLOPRAMIDE 10 MG INJ IV PRN (18:30)
[2019-01-09] MEDS ORDERED: LABETALOL HCL 20MG INJ IV PRN (18:30)
[2019-01-09] MEDS ORDERED: ONDANSETRON 4 MG INJ IV PRN (18:30)
[2019-01-09] MEDS ORDERED: ALBUTEROL 0.083% (NEB) 2.5 MG/3 ML AMP HHN PRN (18:30)
[2019-01-09] MEDS ORDERED: DIPHENHYDRAMINE 50 MG INJ IV PRN (18:30)
[2019-01-09] MEDS ORDERED: hydrALAzine 20 MG INJ IV PRN (18:30)
[2019-01-09] MEDS: ATORVASTATIN 40 MG TAB PO SCH (19:57)
[2019-01-09] MEDS: TERAZOSIN 5 MG CAP PO SCH (19:57)
[2019-01-09] MEDS: INSULIN GLARGINE [LANTus] (100 UNITS/ML) SYG SC SCH (20:44)
[2019-01-09] MEDS: LATANOPROST 0.005% 2.5 ML OPH BOTH EYES SCH (20:54)
[2019-01-10] VITALS (8 sets, daily range): BP systolic 122–147; BP diastolic 55–64; PULSE 69–83; RESP 16–19
[2019-01-10] MEDS: ACCU-CHEK XX SCH ×4 (02:50→17:01)
[2019-01-10] MEDS: LEVOTHYROXINE 125 MCG TAB PO SCH (07:08)
[2019-01-10] MEDS: POLYETHYLENE GLYCOL 17 GM PACKET PO SCH (07:10)
[2019-01-10] MEDS: INSULIN ASPART [NOVOLOG] 3 ML PEN SC SCH ×3 (07:44→17:10)
[2019-01-10] MEDS: PANTOPRAZOLE 40 MG INJ IV SCH (07:44)
[2019-01-10] MEDS: DOXYCYCLINE 100 MG in SOD CHLORIDE 0.9% 250 ML IVPB SCH (07:44)
[2019-01-10] MEDS: FOLIC ACID 1 MG TAB PO SCH (07:45)
[2019-01-10] MEDS: PREGABALIN 25 MG CAP PO SCH ×2 (07:45→12:14)
[2019-01-10] MEDS: FERROUS SULFATE (EC) 325 MG TAB PO SCH (07:46)
[2019-01-10] MEDS: METOPROLOL 50 MG TAB PO SCH (07:46)
[2019-01-10] MEDS: NYSTATIN/TRIAMCINOLONE 15 GM CR TOP SCH (07:47)
[2019-01-10] MEDS: NYSTATIN 30 GM POWDER BTL TOP SCH (07:47)
[2019-01-10] MEDS: HYDROCODONE/APAP (5/325) TAB PO PRN (10:06)
--- NOTE | 2019-01-10 10:17 | CONS ---
Assessment/Plan Assessment/Plan Hospital Course (Demo Recall) #Anemia -pt is noted to have severe iron deficiency. continue start IV Ferrlecit x 5 days -negative FOBT is noted but patient should likely undergo GI workup given that he has never had a colonoscopy in the past and is so profoundly iron deficient. scheduled for EGD and colonoscopy -need to completed the anemia workup at this time -Vitamin b12 / folate are within normal limits. but will check MMA and homocysteine levels to ensure no evidence of vitamin b12 or folate deficiency -TSH wnl which rule out thyroid dysfunction -r/o monoclonal gammopathy, check spep -hemolysis unlikely given normal haptoglobin and LDH, -given CKD will check, will check epo level to see if patient would benefit from procrit #Sepsis - 2/2 to pneumonia. -pt noted to have an elevated lactate -continue Levaquin #COPD -on O2 #Bilateral groin cellulitis -on nystatin Thank you for the opportunity to participate in this patients care A total of 40 minutes of face to face time was spent speaking with the patient, of which greater than 50% was spent in counseling and coordination of care and the detailed question and answer session. Consultation Date/Type/Reason Admit Date/Time Jan 05, 2019 at 00:47 Initial Consult Date 01/08/19 Type of Consult Hematology Reason for Consultation anemia Requesting Provider: CAMPOS CESAR MD Date/Time of Note DATE: 01/10/19 TIME: 10:15 24 HR Interval Summary Free Text/Dictation no acute overnight events Exam/Review of Systems Exam Vitals Vital Signs Date Temp Pulse Resp B/P (MAP) Pulse Ox O2 O2 Flow FiO2 Time Delivery Rate 01/10/19 74 08:28 01/10/19 98.1 19 132/58 98 Nasal 2.0 07:10 (82) Cannula Intake and Output 01/09/19 01/09/19 01/10/19 1515:00 23:00 07:00 IntakeIntake Total 350 ml 490 ml 480 ml OutputOutput Total 450 ml 350 ml BalanceBalance 350 ml 40 ml 130 ml Constitutional: alert Psych: no complaints Head: normocephalic Eyes: nl conjunctiva ENMT: nl external ears & nose Neck: supple Respiratory: clear to auscultation Cardiovascular: regular rate and rhythm Gastrointestinal: soft Musculoskeletal: nl extremities to inspection Extremities: normal pulses Results Result Diagram: 01/09/19 0700 01/09/19 0700 Results 24hrs Laboratory Tests Test 01/09/19 12:24 01/10/19 00:37 01/10/19 07:43 Bedside Glucose 73 97 96 Medications Medication Current Medications IV Flush (NS 3 ml) 3 ml PER PROTOCOL IV ; Start 01/05/19 at 08:00 Acetaminophen (Tylenol Tab) 650 mg Q6H PRN PO .PAIN 1-3 OR TEMP Last administered on 01/05/19 21:42; Admin Dose 650 MG; Start 01/05/19 at 08:00 Albuterol/ Ipratropium (Duoneb) 3 ml Q2H RESP THERAPY PRN HHN SHORTNESS OF BREATH; Start 01/05/19 at 08:00 Atorvastatin Calcium (Lipitor) 40 mg QHS PO Last administered on 01/09/19 19:57; Admin Dose 40 MG; Start 01/05/19 at 21:00 Bisacodyl (Dulcolax) 10 mg BID PRN PO CONSTIPATION Last administered on 01/09/19 07:52; Admin Dose 10 MG; Start 01/05/19 at 08:00 Ferrous Sulfate (Ferrous Sulfate (Ec)) 325 mg BID PO Last administered on 01/10/19 07:46; Admin Dose 325 MG; Start 01/05/19 at 09:00 Folic Acid (Folic Acid) 1 mg DAILY PO Last administered on 01/10/19 07:45; Admin Dose 1 MG; Start 01/05/19 at 09:00 Insulin Glargine (Lantus) 10 units QHS SC Last administered on 01/09/19 20:44; Admin Dose 10 UNITS; Start 01/05/19 at 21:00 Levothyroxine Sodium (Synthroid) 125 mcg BEFORE BREAKFAST PO Last administered on 01/10/19 07:08; Admin Dose 125 MCG; Start 01/06/19 at 07:00 Metoprolol Tartrate (Lopressor) 50 mg BID PO Last administered on 01/10/19 07:46; Admin Dose 50 MG; Start 01/05/19 at 09:00 Nitroglycerin (Nitroglycerin (Sl Tab) 0.4 Mg) 0.4 tab Q5M PRN SL CHEST PAIN; S tart 01/05/19 at 08:00 Polyethylene Glycol (Miralax) 17 gm DAILY PO Last administered on 01/09/19 0 7:53; Admin Dose 17 GM; Start 01/05/19 at 09:00 Pregabalin (Lyrica) 25 mg TID PO Last administered on 01/10/19 07:45; Admin Dose 25 MG; Start 01/05/19 at 09:00 Terazosin HCl (Hytrin) 10 mg HS PO Last administered on 01/09/19 19:57; Admin Dose 10 MG; Start 01/05/19 at 21:00 Levofloxacin/ Dextrose 100 ml @ 100 mls/hr Q48H IVPB Last administered on 01/09/19 07:54; Admin Dose 100 MLS/HR; Start 01/05/19 at 09:00 Latanoprost (Xalatan) 1 drop HS BOTH EYES Last administered on 01/09/19 20:54; Admin Dose 1 DROP; Start 01/05/19 at 21:00 Nystatin/ Triamcinolone Acetonide (Mycolog Cr) 1 applic BID TOP Last administered on 01/10/19 07:47; Admin Dose 1 APPLIC; Start 01/05/19 at 21:00 Acetaminophen/ Hydrocodone Bitart ([place] (5/325)) 1 tab Q6H PRN PO MODERATE PAIN LEVEL 4-6 Last administered on 01/10/19 10:06; Admin Dose 1 TAB; Start 01/05/19 at 14:30 Doxycycline Hyclate 100 mg/ Sodium Chloride 250 ml @ 250 mls/hr Q12 IVPB Last administered on 01/10/19 07:44; Admin Dose 250 MLS/HR; Start 01/05/19 at 21:00 Caspofungin 50 mg/ Sodium Chloride 250 ml @ 250 mls/hr Q24H IVPB Last admini stered on 01/09/19 15:59; Admin Dose 250 MLS/HR; Start 01/06/19 at 15:30; Stop 01/11/19 at 15:29 Nystatin (Nystatin Powder) 1 applic BID TOP Last administered on 01/10/19 07:47; Admin Dose 1 APPLIC; Start 01/05/19 at 21:00 Miscellaneous Information 1 ea NOTE XX ; Start 01/06/19 at 10:00 Glucose (Glutose) 15 gm Q15M PRN PO DECREASED GLUCOSE; Start 01/06/19 at 10:00 Glucose (Glutose) 22.5 gm Q15M PRN PO DECREASED GLUCOSE; Start 01/06/19 at 10:00 Dextrose (D50w Syringe) 25 ml Q15M PRN IV DECREASED GLUCOSE; Start 01/06/19 at 10:00 Dextrose (D50w Syringe) 50 ml Q15M PRN IV DECREASED GLUCOSE; Start 01/06/19 at 10:00 Glucagon (Glucagen) 1 mg Q15M PRN IM DECREASED GLUCOSE; Start 01/06/19 at 10:00 Glucose (Glutose) 15 gm Q15M PRN BUCCAL DECREASED GLUCOSE; Start 01/06/19 at 10:00 Diagnostic Test (Pha) (Accu-Chek) 1 ea AC MEALS AND BEDTIME XX Last administered on 01/10/19at 07:41; Admin Dose 1 EA; Start 01/06/19 at 17:25 Diagnostic Test (Pha) (Accu-Chek) 1 ea 02 XX ; Start 01/08/19 at 02:00 Insulin Aspart (Novolog Insulin Pen) NOVOLOG *MILD* ALGORITHM WITH MEALS BEDTIME SC Last administered on 01/08/19at 17:40; Admin Dose 1 UNIT; Start 01/07/19 at 17:55 Pantoprazole (Protonix Iv) 40 mg DAILY IV Last administered on 01/10/19at 07:44; Admin Dose 40 MG; Start 01/09/19 at 09:00 Ferric Sodium Gluconate Complex 125 mg/Sodium Chloride 110 ml @ 110 mls/hr DAILY@1300 IVPB ; Start 01/10/19 at 13:00; Stop 01/14/19 at 13:59 OREN MARSH M.D. Jan 10, 2019 10:17
--- NOTE | 2019-01-10 10:52 | CONS ---
Assessment/Plan Assessment/Plan Assessment/Plan (Daily) Assessment/Plan (Daily) 1. Severe anemia. -retic 2.8, Iron less than 10, TIBC low 144, Ferritin high 955, NEG FOB, also has an element of severe iron deficiency 2. Atrial fibrillation. -off Eliquis in hospital 3. Sepsis. 4. Chronic obstructive pulmonary disease. 5. Hypertension. 6. Hypothyroidism. 7. Bilateral groin cellulitis. 8. Rheumatoid arthritis. 9. Diabetes mellitus. 10. Peripheral vascular disease. 11. Erosive gastritis Plan Continue PPI and iron Consultation Date/Type/Reason Admit Date/Time Jan 05, 2019 at 00:47 Initial Consult Date 01/08/19 Requesting Provider: CAMPOS CESAR MD Date/Time of Note DATE: 01/10/19 TIME: 10:51 24 HR Interval Summary Constitutional: no complaints Exam/Review of Systems Exam Vitals Vital Signs Date Temp Pulse Resp B/P (MAP) Pulse Ox O2 O2 Flow FiO2 Time Delivery Rate 01/10/19 74 08:28 01/10/19 Nasal 2.0 08:10 Cannula 01/10/19 98.1 19 132/58 98 07:10 (82) Intake and Output 01/09/19 01/09/19 01/10/19 1515:00 23:00 07:00 IntakeIntake Total 350 ml 490 ml 480 ml OutputOutput Total 450 ml 350 ml BalanceBalance 350 ml 40 ml 130 ml Constitutional: alert, oriented, well developed Psych: no complaints, nl mood/affect Head: normocephalic, atraumatic Eyes: nl conjunctiva, EOMI, nl lids, nl sclera, PERRL ENMT: nl external ears & nose, nl lips & teeth, nl nasal mucosa & septum Neck: supple, non-tender Respiratory: clear to auscultation, normal air movement Cardiovascular: regular rate and rhythm, nl pulses Gastrointestinal: soft, nl liver, spleen, non-tender Musculoskeletal: nl extremities to inspection, nl gait and stance Extremities: normal pulses Neurological: SOUP MIXER II-XII intact, nl mental status, nl speech, nl strength Skin: nl turgor; No rash or lesions Lymph: nl lymph nodes Results Result Diagram: 01/09/19 0700 01/09/19 0700 Results 24hrs Laboratory Tests Test 01/09/19 12:24 01/10/19 00:37 01/10/19 07:43 01/10/19 10:19 Bedside Glucose 73 97 96 White Blood Count Pending Red Blood Count Pending Hemoglobin Pending Hematocrit Pending Mean Corpuscular Pending Volume Mean Corpuscular Pending Hemoglobin Mean Corpuscular Pending Hemoglobin Concent Red Cell Pending Distribution Width Platelet Count Pending Mean Platelet Volume Pending Medications Medication Current Medications IV Flush (NS 3 ml) 3 ml PER PROTOCOL IV ; Start 01/05/19 at 08:00 Acetaminophen (Tylenol Tab) 650 mg Q6H PRN PO .PAIN 1-3 OR TEMP Last administered on 01/05/19 21:42; Admin Dose 650 MG; Start 01/05/19 at 08:00 Albuterol/ Ipratropium (Duoneb) 3 ml Q2H RESP THERAPY PRN HHN SHORTNESS OF BREATH; Start 01/05/19 at 08:00 Atorvastatin Calcium (Lipitor) 40 mg QHS PO Last administered on 01/09/19 19: 57; Admin Dose 40 MG; Start 01/05/19 at 21:00 Bisacodyl (Dulcolax) 10 mg BID PRN PO CONSTIPATION Last administered on 01/09/19 07:52; Admin Dose 10 MG; Start 01/05/19 at 08:00 Ferrous Sulfate (Ferrous Sulfate (Ec)) 325 mg BID PO Last administered on 01/10/19 07:46; Admin Dose 325 MG; Start 01/05/19 at 09:00 Folic Acid (Folic Acid) 1 mg DAILY PO Last administered on 01/10/19 07:45; Admin Dose 1 MG; Start 01/05/19 at 09:00 Insulin Glargine (Lantus) 10 units QHS SC Last administered on 01/09/19 20:44; Admin Dose 10 UNITS; Start 01/05/19 at 21:00 Levothyroxine Sodium (Synthroid) 125 mcg BEFORE BREAKFAST PO Last administered on 01/10/19 07:08; Admin Dose 125 MCG; Start 01/06/19 at 07:00 Metoprolol Tartrate (Lopressor) 50 mg BID PO Last administered on 01/10/19 07:46; Admin Dose 50 MG; Start 01/05/19 at 09:00 Nitroglycerin (Nitroglycerin (Sl Tab) 0.4 Mg) 0.4 tab Q5M PRN SL CHEST PAIN; Start 01/05/19 at 08:00 Polyethylene Glycol (Miralax) 17 gm DAILY PO Last administered on 01/09/19 07:53; Admin Dose 17 GM; Start 01/05/19 at 09:00 Pregabalin (Lyrica) 25 mg TID PO Last administered on 01/10/19 07:45; Admin Dose 25 MG; Start 01/05/19 at 09:00 Terazosin HCl (Hytrin) 10 mg HS PO Last administered on 01/09/19 19:57; Admin Dose 10 MG; Start 01/05/19 at 21:00 Levofloxacin/ Dextrose 100 ml @ 100 mls/hr Q48H IVPB Last administered on 01/09/19 07:54; Admin Dose 100 MLS/HR; Start 01/05/19 at 09:00 Latanoprost (Xalatan) 1 drop HS BOTH EYES Last administered on 01/09/19 20:54; Admin Dose 1 DROP; Start 01/05/19 at 21:00 Nystatin/ Triamcinolone Acetonide (Mycolog Cr) 1 applic BID TOP Last administered on 01/10/19 07:47; Admin Dose 1 APPLIC; Start 01/05/19 at 21:00 Acetaminophen/ Hydrocodone Bitart ([place] (5/325)) 1 tab Q6H PRN PO MODERATE PAIN LEVEL 4-6 Last administered on 01/10/19 10:06; Admin Dose 1 TAB; Start 01/05/19 at 14:30 Doxycycline Hyclate 100 mg/ Sodium Chloride 250 ml @ 250 mls/hr Q12 IVPB Last administered on 01/10/19 07:44; Admin Dose 250 MLS/HR; Start 01/05/19 at 21:00 Caspofungin 50 mg/ Sodium Chloride 250 ml @ 250 mls/hr Q24H IVPB Last administered on 01/09/19 15:59; Admin Dose 250 MLS/HR; Start 01/06/19 at 15:30; Stop 01/11/19 at 15:29 Nystatin (Nystatin Powder) 1 applic BID TOP Last administered on 01/10/19 07:47; Admin Dose 1 APPLIC; Start 01/05/19 at 21:00 Miscellaneous Information 1 ea NOTE XX ; Start 01/06/19 at 10:00 Glucose (Glutose) 15 gm Q15M PRN PO DECREASED GLUCOSE; Start 01/06/19 at 10:00 Glucose (Glutose) 22.5 gm Q15M PRN PO DECREASED GLUCOSE; Start 01/06/19 at 10:00 Dextrose (D50w Syringe) 25 ml Q15M PRN IV DECREASED GLUCOSE; Start 01/06/19 at 10:00 Dextrose (D50w Syringe) 50 ml Q15M PRN IV DECREASED GLUCOSE; Start 01/06/19 at 10:00 Glucagon (Glucagen) 1 mg Q15M PRN IM DECREASED GLUCOSE; Start 01/06/19 at 10:00 Glucose (Glutose) 15 gm Q15M PRN BUCCAL DECREASED GLUCOSE; Start 01/06/19 at 10:00 Diagnostic Test (Pha) (Accu-Chek) 1 ea AC MEALS AND BEDTIME XX Last administered on 01/10/19at 07:41; Admin Dose 1 EA; Start 01/06/19 at 17:25 Diagnostic Test (Pha) (Accu-Chek) 1 ea 02 XX ; Start 01/08/19 at 02:00 Insulin Aspart (Novolog Insulin Pen) NOVOLOG *MILD* ALGORITHM WITH MEALS BEDTIME SC Last administered on 01/08/19at 17:40; Admin Dose 1 UNIT; Start 01/07/19 at 17:55 Pantoprazole (Protonix Iv) 40 mg DAILY IV Last administered on 01/10/19at 07:44; Admin Dose 40 MG; Start 01/09/19 at 09:00 Ferric Sodium Gluconate Complex 125 mg/Sodium Chloride 110 ml @ 110 mls/hr DAILY@1300 IVPB ; Start 01/10/19 at 13:00; Stop 01/14/19 at 13:59 MICHELLE VERDIN MD Jan 10, 2019 10:52
--- NOTE | 2019-01-10 11:40 | PN ---
Date/Time of Note Date/Time of Note DATE: 01/10/19 TIME: 11:38 Assessment/Plan VTE Prophylaxis Risk score (from Ns)>0 risk: 9 SCD applied (from Ns): Yes Pharmacological prophylaxis: NA/contraindicated Pharm contraindication: anticoag not tolerated Lines/Catheters IV C[facility]ter Type (from [facility]): Peripheral IV Urinary Cath still in place: Yes Reason Cath still needed: urinary retention Assessment/Plan Hospital Course 1. Sepsis, more likely 2/2 to pneumonia. lactate are increased to 3.0 and 2.4, Chest Xray showed patchy bilateral perihilar increased interstitial changes, may represent an infectious/inflammatory process versus mild pulmonary vascular congestion. Leucocytosis with left shift of neutrophils. SOB, weakness associated with fevers. Pt had recent pneumonia with fluid overload. 2. COPD, on oxygen at home 3. Acute on chronic renal failure likely secondary to sepsis, on discharge in November creatinine 1.3, on admission 1.93 4. Hypertension. 5. Hyperlipidemia. 6. Hypothyroidism. 7. Normocytic normochromic chronic anemia 8. Bilateral groin cellulitis more likely associated with mateus, patches in groin and axilla bilaterally. Back rash. Pt was taken a/b recently 9. History of rheumatoid arthritis. 10. Diabetes type 2. 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 Peripheral vascular disease. 13. Chronic a.fib on anticoagulants 14.edema right arm Assessment/Plan -c/w Wade per urology, _US venous right arm -APPRECIATED Dr. Rodas assistance -Continue with gentle IV fluids -C/w IV iron started -Eliquis on hold due to severe anemia -Continue on levofloxacin/doxycycline/caspofungin per ID - EGD/ Colonoscopy done, no active bleeding -Nystatin for fungal rash -follow up with cardiology/pulmonary/GI/ID consults -Renally dose all meds, - Abd US neg - ISS, cw lantus 10 - gi prophylaxis Protonix IV - transfer to ARU when medically optimized. Result Diagram: 01/10/19 1019 01/10/19 1019 Results 24hrs Laboratory Tests Test 01/09/19 12:24 01/10/19 00:37 01/10/19 07:43 01/10/19 10:19 Bedside Glucose 73 97 96 White Blood Count 11.2 H Red Blood Count 2.47 L Hemoglobin 7.1 L Hematocrit 23.2 L Mean Corpuscular 93.9 Volume Mean Corpuscular 28.7 L Hemoglobin Mean Corpuscular 30.6 L Hemoglobin Concent Red Cell 17.2 H Distribution Width Platelet Count 270 Mean Platelet Volume 10.2 Immature 0.800 H Granulocytes % Neutrophils % 82.9 H Lymphocytes % 7.4 L Monocytes % 8.3 Eosinophils % 0.5 Basophils % 0.1 Nucleated Red Blood 0.2 H Cells % Immature 0.090 H Granulocytes # Neutrophils # 9.2 H Lymphocytes # 0.8 Monocytes # 0.9 Eosinophils # 0.1 Basophils # 0.0 Nucleated Red Blood 0.0 Cells # Sodium Level 133 L Potassium Level 4.6 Chloride Level 106 Carbon Dioxide Level 16 L Anion Gap 11 Blood Urea Nitrogen 62 H Creatinine 2.53 H Est Glomerular Filtrat Rate mL/min Glucose Level 96 # Calcium Level 7.7 L Subjective 24 Hr Interval Summary Free Text/Dictation weak Cardiovascular: chest pain Musculoskeletal: bone/joint pain (hands pain) Exam/Review of Systems Exam Vitals Vital Signs Date Temp Pulse Resp B/P (MAP) Pulse Ox O2 O2 Flow FiO2 Time Delivery Rate 01/10/19 97.5 76 18 138/64 94 Nasal 2.0 11:27 (88) Cannula Intake and Output 01/09/19 01/09/19 01/10/19 1515:00 23:00 07:00 IntakeIntake Total 350 ml 490 ml 480 ml OutputOutput Total 450 ml 350 ml BalanceBalance 350 ml 40 ml 130 ml Constitutional: alert, oriented Eyes: nl conjunctiva ENMT: nl external ears & nose Neck: supple Respiratory: diminished breath sounds Cardiovascular: regular rate and rhythm Gastrointestinal: soft Extremities: normal pulses, edema (right arm) Skin: other (redness and peeling skinn axlla, scrotal area) Results Results 24hrs Laboratory Tests Test 01/09/19 12:24 01/10/19 00:37 01/10/19 07:43 01/10/19 10:19 Bedside Glucose 73 97 96 White Blood Count 11.2 H Red Blood Count 2.47 L Hemoglobin 7.1 L Hematocrit 23.2 L Mean Corpuscular 93.9 Volume Mean Corpuscular 28.7 L Hemoglobin Mean Corpuscular 30.6 L Hemoglobin Concent Red Cell 17.2 H Distribution Width Platelet Count 270 Mean Platelet Volume 10.2 Immature 0.800 H Granulocytes % Neutrophils % 82.9 H Lymphocytes % 7.4 L Monocytes % 8.3 Eosinophils % 0.5 Basophils % 0.1 Nucleated Red Blood 0.2 H Cells % Immature 0.090 H Granulocytes # Neutrophils # 9.2 H Lymphocytes # 0.8 Monocytes # 0.9 Eosinophils # 0.1 Basophils # 0.0 Nucleated Red Blood 0.0 Cells # Sodium Level 133 L Potassium Level 4.6 Chloride Level 106 Carbon Dioxide Level 16 L Anion Gap 11 Blood Urea Nitrogen 62 H Creatinine 2.53 H Est Glomerular Filtrat Rate mL/min Glucose Level 96 # Calcium Level 7.7 L Medications Medication Current Medications IV Flush (NS 3 ml) 3 ml PER PROTOCOL IV ; Start 01/05/19 at 08:00 Acetaminophen (Tylenol Tab) 650 mg Q6H PRN PO .PAIN 1-3 OR TEMP Last administered on 01/05/19 21:42; Admin Dose 650 MG; Start 01/05/19 at 08:00 Albuterol/ Ipratropium (Duoneb) 3 ml Q2H RESP THERAPY PRN HHN SHORTNESS OF BREATH; Start 01/05/19 at 08:00 Atorvastatin Calcium (Lipitor) 40 mg QHS PO Last administered on 01/09/19 19:57; Admin Dose 40 MG; Start 01/05/19 at 21:00 Bisacodyl (Dulcolax) 10 mg BID PRN PO CONSTIPATION Last administered on 01/09/19 07:52; Admin Dose 10 MG; Start 01/05/19 at 08:00 Ferrous Sulfate (Ferrous Sulfate (Ec)) 325 mg BID PO Last administered on 01/10/19 07:46; Admin Dose 325 MG; Start 01/05/19 at 09:00 Folic Acid (Folic Acid) 1 mg DAILY PO Last administered on 01/10/19 07:45; Admin Dose 1 MG; Start 01/05/19 at 09:00 Insulin Glargine (Lantus) 10 units QHS SC Last administered on 01/09/19 20:44; Admin Dose 10 UNITS; Start 01/05/19 at 21:00 Levothyroxine Sodium (Synthroid) 125 mcg BEFORE BREAKFAST PO Last administered on 01/10/19 07:08; Admin Dose 125 MCG; Start 01/06/19 at 07:00 Metoprolol Tartrate (Lopressor) 50 mg BID PO Last administered on 01/10/19 07:46; Admin Dose 50 MG; Start 01/05/19 at 09:00 Nitroglycerin (Nitroglycerin (Sl Tab) 0.4 Mg) 0.4 tab Q5M PRN SL CHEST PAIN; Start 01/05/19 at 08:00 Polyethylene Glycol (Miralax) 17 gm DAILY PO Last administered on 01/09/19 07:53; Admin Dose 17 GM; Start 01/05/19 at 09:00 Pregabalin (Lyrica) 25 mg TID PO Last administered on 01/10/19 07:45; Admin Dose 25 MG; Start 01/05/19 at 09:00 Terazosin HCl (Hytrin) 10 mg HS PO Last administered on 01/09/19 19:57; Admin Dose 10 MG; Start 01/05/19 at 21:00 Levofloxacin/ Dextrose 100 ml @ 100 mls/hr Q48H IVPB Last administered on 01/09/19 07:54; Admin Dose 100 MLS/HR; Start 01/05/19 at 09:00 Latanoprost (Xalatan) 1 drop HS BOTH EYES Last administered on 01/09/19 20:54; Admin Dose 1 DROP; Start 01/05/19 at 21:00 Nystatin/ Triamcinolone Acetonide (Mycolog Cr) 1 applic BID TOP Last administered on 01/10/19 07:47; Admin Dose 1 APPLIC; Start 01/05/19 at 21:00 Acetaminophen/ Hydrocodone Bitart ([place] (5/325)) 1 tab Q6H PRN PO MODERATE PAIN LEVEL 4-6 Last administered on 01/10/19 10:06; Admin Dose 1 TAB; Start 01/05/19 at 14:30 Doxycycline Hyclate 100 mg/ Sodium Chloride 250 ml @ 250 mls/hr Q12 IVPB Last administered on 01/10/19 07:44; Admin Dose 250 MLS/HR; Start 01/05/19 at 21:00 Caspofungin 50 mg/ Sodium Chloride 250 ml @ 250 mls/hr Q24H IVPB Last administered on 01/09/19 15:59; Admin Dose 250 MLS/HR; Start 01/06/19 at 15:30; Stop 01/11/19 at 15:29 Nystatin (Nystatin Powder) 1 applic BID TOP Last administered on 01/10/19at 07:47; Admin Dose 1 APPLIC; Start 01/05/19 at 21:00 Miscellaneous Information 1 ea NOTE XX ; Start 01/06/19 at 10:00 Glucose (Glutose) 15 gm Q15M PRN PO DECREASED GLUCOSE; Start 01/06/19 at 10:00 Glucose (Glutose) 22.5 gm Q15M PRN PO DECREASED GLUCOSE; Start 01/06/19 at 10:00 Dextrose (D50w Syringe) 25 ml Q15M PRN IV DECREASED GLUCOSE; Start 01/06/19 at 10:00 Dextrose (D50w Syringe) 50 ml Q15M PRN IV DECREASED GLUCOSE; Start 01/06/19 at 10:00 Glucagon (Glucagen) 1 mg Q15M PRN IM DECREASED GLUCOSE; Start 01/06/19 at 10:00 Glucose (Glutose) 15 gm Q15M PRN BUCCAL DECREASED GLUCOSE; Start 01/06/19 at 10:00 Diagnostic Test (Pha) (Accu-Chek) 1 ea AC MEALS AND BEDTIME XX Last administered on 01/10/19at 07:41; Admin Dose 1 EA; Start 01/06/19 at 17:25 Diagnostic Test (Pha) (Accu-Chek) 1 ea 02 XX ; Start 01/08/19 at 02:00 Insulin Aspart (Novolog Insulin Pen) NOVOLOG *MILD* ALGORITHM WITH MEALS BEDTIME SC Last administered on 01/08/19at 17:40; Admin Dose 1 UNIT; Start 01/07/19 at 17:55 Pantoprazole (Protonix Iv) 40 mg DAILY IV Last administered on 01/10/19at 07:44; Admin Dose 40 MG; Start 01/09/19 at 09:00 Ferric Sodium Gluconate Complex 125 mg/Sodium Chloride 110 ml @ 110 mls/hr DAILY@1300 IVPB ; Start 01/10/19 at 13:00; Stop 01/14/19 at 13:59 COOPER CARO Jan 10, 2019 11:40
--- NOTE | 2019-01-10 12:20 | CONS ---
Consult Date/Type/Reason Admit Date/Time Jan 05, 2019 at 00:47 Initial Consult Date 01/08/19 Type of Consultation: Urology Reason for Consultation Penoscrotal swelling and urinary retention Requesting Provider: CAMPOS CESAR MD Date/Time of Note DATE: 01/10/19 TIME: 12:16 Subjective Patient appears to be comfortable. He has no pain over the scrotum Objective Vitals Vital Signs Date Temp Pulse Resp B/P (MAP) Pulse Ox O2 O2 Flow FiO2 Time Delivery Rate 01/10/19 97.5 76 18 138/64 94 Nasal 2.0 11:27 (88) Cannula Intake and Output 01/09/19 01/09/19 01/10/19 1515:00 23:00 07:00 IntakeIntake Total 350 ml 490 ml 480 ml OutputOutput Total 450 ml 350 ml BalanceBalance 350 ml 40 ml 130 ml Exam The Wade catheter is draining well and clear urine. Results/Medications Result Diagram: 01/10/19 1019 01/10/19 1019 Results 24 hrs Laboratory Tests Test 01/09/19 12:24 01/10/19 00:37 01/10/19 07:43 01/10/19 10:19 Bedside Glucose 73 97 96 White Blood Count 11.2 H Red Blood Count 2.47 L Hemoglobin 7.1 L Hematocrit 23.2 L Mean Corpuscular 93.9 Volume Mean Corpuscular 28.7 L Hemoglobin Mean Corpuscular 30.6 L Hemoglobin Concent Red Cell 17.2 H Distribution Width Platelet Count 270 Mean Platelet Volume 10.2 Immature 0.800 H Granulocytes % Neutrophils % 82.9 H Lymphocytes % 7.4 L Monocytes % 8.3 Eosinophils % 0.5 Basophils % 0.1 Nucleated Red Blood 0.2 H Cells % Immature 0.090 H Granulocytes # Neutrophils # 9.2 H Lymphocytes # 0.8 Monocytes # 0.9 Eosinophils # 0.1 Basophils # 0.0 Nucleated Red Blood 0.0 Cells # Sodium Level 133 L Potassium Level 4.6 Chloride Level 106 Carbon Dioxide Level 16 L Anion Gap 11 Blood Urea Nitrogen 62 H Creatinine 2.53 H Est Glomerular Filtrat Rate mL/min Glucose Level 96 # Calcium Level 7.7 L Test 01/10/19 12:13 Bedside Glucose 123 Home Meds Active Scripts Apixaban* (Eliquis*) 5 Mg Tablet, 2.5 MG PO BID for 30 Days, TAB Prov:IVAN AKHTAR MD 12/20/18 Metoprolol Tartrate* (Lopressor*) 50 Mg Tab, 50 MG PO BID for 30 Days, TAB Prov:COOPER CARO 12/20/18 Reported Medications Furosemide* (Lasix*) 20 Mg Tablet, 20 MG PO BID, TAB 01/05/19 Polyethylene Glycol* (Miralax*) 17 Gm Powd.pack, 17 GM PO DAILY, #30 PACKET 12/15/18 Nifedipine* (Nifedipine ER*) 60 Mg Tablet.sa, 60 MG PO DAILY, TAB.SA 12/15/18 Bisacodyl* (Bisacodyl*) 5 Mg Tablet.dr, 10 MG PO BID PRN for CONSTIPATION, TAB 12/15/18 Pregabalin* (Lyrica*) 25 Mg Capsule, 25 MG PO TID, CAP 12/15/18 Bimatoprost* (Lumigan*) 0.01%-5 Ml Opht Drops, 1 DROP BOTH EYES HS, EA 03/02/18 Cetirizine Hcl* (Cetirizine Hcl*) 10 Mg Tablet, 10 MG PO DAILY, #30 TAB 03/02/18 Insulin Glargine* (Lantus*) 100 Unit/Ml Soln, 10 UNIT SC QHS, #1 VIAL 03/02/18 Ergocalciferol (Vitamin D2) (VITAMIN D2) 2,000 Unit Tablet, 2000 UNIT PO DAILY, TAB 03/02/18 Famotidine* (Famotidine*) 20 Mg Tablet, 20 MG PO DAILY, #30 TAB 03/02/18 Ferrous Sulfate* (Ferrous Sulfate*) 325 Mg Tabec, 325 MG PO BID, TAB 03/02/18 Nitroglycerin* (Nitrostat*) 0.4 Mg Tab.subl, 0.4 MG SL Q5MIN PRN for CHEST PAIN, BOTTLE 03/02/18 Terazosin Hcl* (Terazosin Hcl*) 10 Mg Capsule, 10 MG PO HS, CAP 03/02/18 Levothyroxine Sodium* (Levoxyl*) 125 Mcg Tablet, 125 MCG PO BEFORE BREAKFAST, #30 TAB 03/02/18 Allopurinol* (Allopurinol*) 100 Mg Tablet, 100 MG PO BID, TAB 03/02/18 Atorvastatin* (Atorvastatin*) 40 Mg Tablet, 40 MG PO QHS, #30 TAB 03/02/18 Folic Acid* (Folic Acid*) 1 Mg Tablet, 1 MG PO DAILY, TAB 03/02/18 Discontinued Scripts Methylprednisolone* (Medrol* DOSE PACK) 4 Mg/Dose-Pack Tab.ds.pk, 4 MG PO . DIRECTED for 7 Days, PACKET Prov:IVAN AKHTAR MD 12/20/18 Doxycycline Monohydrate (Doxycycline Monohydrate) 100 Mg Capsule, 100 MG PO BID for 5 Days, CAP Prov:COOPER CARO 12/20/18 Levofloxacin* (Levaquin*) 500 Mg Tablet, 500 MG PO DAILY for 5 Days, TAB Prov:COOPER CARO 12/20/18 Medications Current Medications IV Flush (NS 3 ml) 3 ml PER PROTOCOL IV ; Start 01/05/19 at 08:00 Acetaminophen (Tylenol Tab) 650 mg Q6H PRN PO .PAIN 1-3 OR TEMP Last admi nistered on 01/05/19at 21:42; Admin Dose 650 MG; Start 01/05/19 at 08:00 Albuterol/ Ipratropium (Duoneb) 3 ml Q2H RESP THERAPY PRN HHN SHORTNESS OF BREATH; Start 01/05/19 at 08:00 Atorvastatin Calcium (Lipitor) 40 mg QHS PO Last administered on 01/09/19 19:57; Admin Dose 40 MG; Start 01/05/19 at 21:00 Bisacodyl (Dulcolax) 10 mg BID PRN PO CONSTIPATION Last administered on 01/09/19 07:52; Admin Dose 10 MG; Start 01/05/19 at 08:00 Ferrous Sulfate (Ferrous Sulfate (Ec)) 325 mg BID PO Last administered on 01/10/19 07:46; Admin Dose 325 MG; Start 01/05/19 at 09:00 Folic Acid (Folic Acid) 1 mg DAILY PO Last administered on 01/10/19 07:45; Admin Dose 1 MG; Start 01/05/19 at 09:00 Insulin Glargine (Lantus) 10 units QHS SC Last administered on 01/09/19 20:44; Admin Dose 10 UNITS; Start 01/05/19 at 21:00 Levothyroxine Sodium (Synthroid) 125 mcg BEFORE BREAKFAST PO Last administered on 01/10/19 07:08; Admin Dose 125 MCG; Start 01/06/19 at 07:00 Metoprolol Tartrate (Lopressor) 50 mg BID PO Last administered on 01/10/19 07:46; Admin Dose 50 MG; Start 01/05/19 at 09:00 Nitroglycerin (Nitroglycerin (Sl Tab) 0.4 Mg) 0.4 tab Q5M PRN SL CHEST PAIN; Start 01/05/19 at 08:00 Polyethylene Glycol (Miralax) 17 gm DAILY PO Last administered on 01/09/19 07:53; Admin Dose 17 GM; Start 01/05/19 at 09:00 Pregabalin (Lyrica) 25 mg TID PO Last administered on 01/10/19 12:14; Admin Dose 25 MG; Start 01/05/19 at 09:00 Terazosin HCl (Hytrin) 10 mg HS PO Last administered on 01/09/19 19:57; Admin Dose 10 MG; Start 01/05/19 at 21:00 Levofloxacin/ Dextrose 100 ml @ 100 mls/hr Q48H IVPB Last administered on 01/09/19 07:54; Admin Dose 100 MLS/HR; Start 01/05/19 at 09:00 Latanoprost (Xalatan) 1 drop HS BOTH EYES Last administered on 01/09/19 20:54; Admin Dose 1 DROP; Start 01/05/19 at 21:00 Nystatin/ Triamcinolone Acetonide (Mycolog Cr) 1 applic BID TOP Last administered on 01/10/19 07:47; Admin Dose 1 APPLIC; Start 01/05/19 at 21:00 Acetaminophen/ Hydrocodone Bitart ([place] (5/325)) 1 tab Q6H PRN PO MODERATE PAIN LEVEL 4-6 Last administered on 01/10/19 10:06; Admin Dose 1 TAB; Start 01/05/19 at 14:30 Doxycycline Hyclate 100 mg/ Sodium Chloride 250 ml @ 250 mls/hr Q12 IVPB Last administered on 01/10/19 07:44; Admin Dose 250 MLS/HR; Start 01/05/19 at 21:00 Caspofungin 50 mg/ Sodium Chloride 250 ml @ 250 mls/hr Q24H IVPB Last administered on 01/09/19at 15:59; Admin Dose 250 MLS/HR; Start 01/06/19 at 15:30; Stop 01/11/19 at 15:29 Nystatin (Nystatin Powder) 1 applic BID TOP Last administered on 01/10/19at 07:47; Admin Dose 1 APPLIC; Start 01/05/19 at 21:00 Miscellaneous Information 1 ea NOTE XX ; Start 01/06/19 at 10:00 Glucose (Glutose) 15 gm Q15M PRN PO DECREASED GLUCOSE; Start 01/06/19 at 10:00 Glucose (Glutose) 22.5 gm Q15M PRN PO DECREASED GLUCOSE; Start 01/06/19 at 10:00 Dextrose (D50w Syringe) 25 ml Q15M PRN IV DECREASED GLUCOSE; Start 01/06/19 at 10:00 Dextrose (D50w Syringe) 50 ml Q15M PRN IV DECREASED GLUCOSE; Start 01/06/19 at 10:00 Glucagon (Glucagen) 1 mg Q15M PRN IM DECREASED GLUCOSE; Start 01/06/19 at 10:00 Glucose (Glutose) 15 gm Q15M PRN BUCCAL DECREASED GLUCOSE; Start 01/06/19 at 10:00 Diagnostic Test (Pha) (Accu-Chek) 1 ea AC MEALS AND BEDTIME XX Last administered on 01/10/19at 12:09; Admin Dose 1 EA; Start 01/06/19 at 17:25 Diagnostic Test (Pha) (Accu-Chek) 1 ea 02 XX ; Start 01/08/19 at 02:00 Insulin Aspart (Novolog Insulin Pen) NOVOLOG *MILD* ALGORITHM WITH MEALS BEDTIME SC Last administered on 01/08/19at 17:40; Admin Dose 1 UNIT; Start 01/07/19 at 17:55 Ferric Sodium Gluconate Complex 125 mg/Sodium Chloride 110 ml @ 110 mls/hr DAILY@1300 IVPB Last administered on 01/10/19at 12:15; Admin Dose 110 MLS/HR; Start 01/10/19 at 13:00; Stop 01/14/19 at 13:59 Pantoprazole (Protonix Tab) 40 mg DAILY@06 PO ; Start 01/11/19 at 06:00 Assessment/Plan Hospital Course (Demo Recall) 88-year-old male , with a past medical history of recent pneumonia, rheumatoid arthritis, degenerative disk disease, 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 The patient stated he was in hospital in November 2018 and was discharged with antibiotics, he finished course of antibiotic and felt better until 4 days prior to admission he developed scrotal edema, weakness, and rash in groin area and axilla. He has also been having shortness of breath and was not been able to be out of bed much for 2 days. The patient denied any abdominal pain, nausea, vomiting or diarrhea. He came to the emergency department for further evaluation. On arrival to the ED, the patient was found to have fevers of 101, blood pressure was 100/94, pulse oximetry 92. White count was 19.8, left shift neutrophiles, hemoglobin 7.9, HCT 23, platelet count 197. BMP showed BUN of 37 and creatinine of 1.66. Patient was found today to have a high bladder volume on the bladder scan and attempt by the nursing staff to insert the Wade catheter will not successful therefore a urological consultation was requested. The patient was seen in his room and his daughter was at his bedside. He lives with her. There was no history of prior prostate surgery. The daughter states that he has been able to urinate on his own at home. His bed is wet so is his gown because he just voided. I inserted a 16 Georgian regular catheter. The problem that the nursing staff were having is at he does have phimosis covering the head of the penis and they could not direct the tip of the catheter into the urethral meatus since they cannot see it. The Wade catheter is draining well and the urine is clear. Keep the Wade catheter in place and discontinue it when it is no longer needed CANDY CAST MD Jan 10, 2019 12:20
--- NOTE | 2019-01-10 12:42 | DS ---
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 According to the patient, he was in hospital in November 2018 and was discharged with antibiotics, he finished course of a/b and felt better until 4 days ago he developed scrotal edema, weakness, and rash in groin area, axilla. He has also been having shortness of breath and was not been able to be out of bed much for the past 2 days. The patient denied any abdominal pain, nausea, vomiting or diarrhea. He came to the emergency department for further evaluation. On arrival to the ED, the patient was found to have fevers of 101, blood pressure was 100/94, pulse oximetry 92. White count was 19.8, left shift neutrophiles, hemoglobin 7.9, HCT 23, platelet count 197. BMP showed BUN of 37 and creatinine of 1.66, patient discharge creatinine was 1.3. Lactate was 3.0 and 2.4. Influenza A and B are not available yet. The patient had initial chest x-ray that showed patchy bilateral perihilar increased interstitial changes may represent an infectious/inflammatory process versus mild pulmonary vascular congestion. Pt has hx of COPD, he is a former smoker. The patient received in ER Vancomycin and Cefepime, NS 2 liters bolus, and after that pt was admitted to telemetry service. ABG is not done. PAST MEDICAL HISTORY: 1. History of CABG. 2. Rheumatoid arthritis. 3. History of AFib. 4. History of coronary artery disease. 5. Hypertension. 6. History of peripheral vascular disease. Adm. dx: 1. Sepsis, more likely 2/2 to pneumonia. lactate are increased to 3.0 and 2.4, Chest Xray showed patchy bilateral perihilar increased interstitial changes, may represent an infectious/inflammatory process versus mild pulmonary vascular congestion. Leucocytosis with left shift of neutrophils. SOB, weakness associated with fevers. Pt had recent pneumonia with fluid overload. 2. COPD, on oxygen at home 3. Acute on chronic renal failure likely secondary to sepsis, on discharge in November creatinine 1.3, on admission 1.93 4. Hypertension. 5. Hyperlipidemia. 6. Hypothyroidism. 7. Normocytic normochromic chronic anemia 8. Bilateral groin cellulitis more likely associated with mateus, patches in groin and axilla bilaterally. Back rash. Pt was taken a/b recently 9. History of rheumatoid arthritis. 10. Diabetes type 2. 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 Peripheral vascular disease. 13. Chronic a.fib on anticoagulants 14. edema right arm Pt was on telemetry service, his Afib was controlled, dr Robertson managed his BP meds and consulted pt on cardiologic issues. dr De Leon seeing pt as a pulmonology, pt had over the clock breathing treatment and supplemental oxygen. during hospitalization pt developed severe anemia, Iron supplements were given to him. Dr Moreno suggested fe so4 BID after IV iron and plead to stop Eliquiz due to severe anemia. Dr Fournier consulted pt ID , he managed pt antifungal and a/b. Pt had wound care daily. He underwent EGD and colonoscopy where gastritis , but no active bleeding was found. dr Rodas was consulted on pt. uropathies. Creatinine was checked daily, no nephrotoxic meds. was used. Pt now has right arm edema and will undergo US of riIght arm, it is negative. Pt is approved for rehabilitation. Home Meds Active Scripts Apixaban* (Eliquis*) 5 Mg Tablet, 2.5 MG PO BID for 30 Days, TAB Prov:IVAN AKHTAR MD 12/20/18 Metoprolol Tartrate* (Lopressor*) 50 Mg Tab, 50 MG PO BID for 30 Days, TAB Prov:COOPER CARO 12/20/18 Reported Medications Furosemide* (Lasix*) 20 Mg Tablet, 20 MG PO BID, TAB 01/05/19 Polyethylene Glycol* (Miralax*) 17 Gm Powd.pack, 17 GM PO DAILY, #30 PACKET 12/15/18 Nifedipine* (Nifedipine ER*) 60 Mg Tablet.sa, 60 MG PO DAILY, TAB.SA 12/15/18 Bisacodyl* (Bisacodyl*) 5 Mg Tablet.dr, 10 MG PO BID PRN for CONSTIPATION, TAB 12/15/18 Pregabalin* (Lyrica*) 25 Mg Capsule, 25 MG PO TID, CAP 12/15/18 Bimatoprost* (Lumigan*) 0.01%-5 Ml Opht Drops, 1 DROP BOTH EYES HS, EA 03/02/18 Cetirizine Hcl* (Cetirizine Hcl*) 10 Mg Tablet, 10 MG PO DAILY, #30 TAB 03/02/18 Insulin Glargine* (Lantus*) 100 Unit/Ml Soln, 10 UNIT SC QHS, #1 VIAL 03/02/18 Ergocalciferol (Vitamin D2) (VITAMIN D2) 2,000 Unit Tablet, 2000 UNIT PO DAILY, TAB 03/02/18 Famotidine* (Famotidine*) 20 Mg Tablet, 20 MG PO DAILY, #30 TAB 03/02/18 Ferrous Sulfate* (Ferrous Sulfate*) 325 Mg Tabec, 325 MG PO BID, TAB 03/02/18 Nitroglycerin* (Nitrostat*) 0.4 Mg Tab.subl, 0.4 MG SL Q5MIN PRN for CHEST PAIN, BOTTLE 03/02/18 Terazosin Hcl* (Terazosin Hcl*) 10 Mg Capsule, 10 MG PO HS, CAP 03/02/18 Levothyroxine Sodium* (Levoxyl*) 125 Mcg Tablet, 125 MCG PO BEFORE BREAKFAST, #30 TAB 03/02/18 Allopurinol* (Allopurinol*) 100 Mg Tablet, 100 MG PO BID, TAB 03/02/18 Atorvastatin* (Atorvastatin*) 40 Mg Tablet, 40 MG PO QHS, #30 TAB 03/02/18 Folic Acid* (Folic Acid*) 1 Mg Tablet, 1 MG PO DAILY, TAB 03/02/18 Discontinued Scripts Methylprednisolone* (Medrol* DOSE PACK) 4 Mg/Dose-Pack Tab.ds.pk, 4 MG PO . DIRECTED for 7 Days, PACKET Prov:IVAN AKHTAR MD 12/20/18 Doxycycline Monohydrate (Doxycycline Monohydrate) 100 Mg Capsule, 100 MG PO BID for 5 Days, CAP Prov:COOPER CARO 12/20/18 Levofloxacin* (Levaquin*) 500 Mg Tablet, 500 MG PO DAILY for 5 Days, TAB Prov:JULIUSSELENECOOPER OLIVAS 12/20/18 Follow-up Plan [facility] Primary Care Provider Adin Alatorre MD Time spent on discharge: < 30 minutes Pending Labs Laboratory Tests Test 01/10/19 00:37 01/10/19 07:43 01/10/19 10:19 01/10/19 12:13 Bedside 97 96 123 Glucose mg/dL (70-220) mg/dL (70-220) mg/dL (70-220) White Blood 11.2 Count 10^3/ul (4.8-1 0.8) Red Blood 2.47 Count 10^6/ul (4.70- 6.10) Hemoglobin 7.1 g/dl (14.0-18. 0) Hematocrit 23.2 % (42.0-52.0) Mean 93.9 Corpuscular fl (82.0-101.0 Volume ) Mean 28.7 Corpuscular pg (29.0-33.0) Hemoglobin Mean 30.6 Corpuscular g/dl (32.0-37. Hemoglobin Conc 0) ent Red Cell 17.2 Distribution % (11.5-14.5) Width Platelet Count 270 10^3/UL (140-4 15) Mean Platelet 10.2 Volume fl (7.4-10.4) Immature 0.800 Granulocytes % % (0.001-0.429 ) Neutrophils % 82.9 % (39.0-77.0) Lymphocytes % 7.4 % (15.0-51.0) Monocytes % 8.3 % (0.0-11.0) Eosinophils % 0.5 % (0.0-7.0) Basophils % 0.1 % (0.0-2.0) Nucleated Red 0.2 Blood Cells % /100WBC (0.0-0 .0) Immature 0.090 Granulocytes # 10^3/ul (0.0-0 .031) Neutrophils # 9.2 10^3/ul (1.6-7 .5) Lymphocytes # 0.8 10^3/ul (0.8-2 .9) Monocytes # 0.9 10^3/ul (0.3-0 .9) Eosinophils # 0.1 10^3/ul (0.0-0 .5) Basophils # 0.0 10^3/ul (0.0-0 .1) Nucleated Red 0.0 Blood Cells # 10^3/ul (0.0-0 .0) Sodium Level 133 mmol/L (135-14 4) Potassium 4.6 Level mmol/L (3.5-5. 1) Chloride Level 106 mmol/L (97-110 ) Carbon Dioxide 16 Level mmol/L (21-31) Anion Gap 11 (5-13) Blood Urea 62 Nitrogen mg/dl (7-20) Creatinine 2.53 mg/dl (0.61-1. 24) Est Glomerular mL/min (>60) Filtrat Rate mL/min Glucose Level 96 mg/dl (70-220) Calcium Level 7.7 mg/dl (8.4-10. 2) COOPER CARO Jan 10, 2019 12:42
[2019-01-10] MEDS ORDERED: SOD FERRIC GLUC COMPLX 125 MG in SOD CHLORIDE 0.9% 100 ML IVPB SCH (13:00)
--- NOTE | 2019-01-10 13:46 | CONS ---
Consult Date/Type/Reason Admit Date/Time Jan 05, 2019 at 00:47 Initial Consult Date 01/06/19 Type of Consult Pulmonary Requesting Provider: CAMPOS CESAR MD Date/Time of Note DATE: 01/10/19 TIME: 13:45 Subjective Patient is comfortable. Objective Vital Signs Date Temp Pulse Resp B/P (MAP) Pulse Ox O2 O2 Flow FiO2 Time Delivery Rate 01/10/19 69 12:33 01/10/19 97.5 18 138/64 94 Nasal 2.0 11:27 (88) Cannula Intake and Output 01/09/19 01/09/19 01/10/19 1515:00 23:00 07:00 IntakeIntake Total 350 ml 490 ml 480 ml OutputOutput Total 450 ml 350 ml BalanceBalance 350 ml 40 ml 130 ml Exam GENERAL: Elderly -Iranian gentleman comfortable at rest no acute distress VITAL SIGNS: per chart NECK: Supple. No JVD or lymphadenopathy. CARDIAC EXAM: S1, S2. No added sounds or murmurs. CHEST: clear bilaterally, No added sounds, rales or wheezes ABDOMEN: Soft, nontender. No guarding or rebound. EXTREMITIES: No cyanosis, clubbing or edema. NEUROLOGIC: Generalized weakness. No focal deficits. Results/Medications Result Diagram: 01/10/19 1019 01/10/19 1019 Results 24 hrs Laboratory Tests Test 01/10/19 00:37 01/10/19 07:43 01/10/19 10:19 01/10/19 12:13 Bedside Glucose 97 96 123 White Blood Count 11.2 H Red Blood Count 2.47 L Hemoglobin 7.1 L Hematocrit 23.2 L Mean Corpuscular 93.9 Volume Mean Corpuscular 28.7 L Hemoglobin Mean Corpuscular 30.6 L Hemoglobin Concent Red Cell 17.2 H Distribution Width Platelet Count 270 Mean Platelet Volume 10.2 Immature 0.800 H Granulocytes % Neutrophils % 82.9 H Lymphocytes % 7.4 L Monocytes % 8.3 Eosinophils % 0.5 Basophils % 0.1 Nucleated Red Blood 0.2 H Cells % Immature 0.090 H Granulocytes # Neutrophils # 9.2 H Lymphocytes # 0.8 Monocytes # 0.9 Eosinophils # 0.1 Basophils # 0.0 Nucleated Red Blood 0.0 Cells # Sodium Level 133 L Potassium Level 4.6 Chloride Level 106 Carbon Dioxide Level 16 L Anion Gap 11 Blood Urea Nitrogen 62 H Creatinine 2.53 H Est Glomerular Filtrat Rate mL/min Glucose Level 96 # Calcium Level 7.7 L Medications Current Medications IV Flush (NS 3 ml) 3 ml PER PROTOCOL IV ; Start 01/05/19 at 08:00 Acetaminophen (Tylenol Tab) 650 mg Q6H PRN PO .PAIN 1-3 OR TEMP Last administered on 01/05/19 21:42; Admin Dose 650 MG; Start 01/05/19 at 08:00 Albuterol/ Ipratropium (Duoneb) 3 ml Q2H RESP THERAPY PRN HHN SHORTNESS OF BREATH; Start 01/05/19 at 08:00 Atorvastatin Calcium (Lipitor) 40 mg QHS PO Last administered on 01/09/19 19:57; Admin Dose 40 MG; Start 01/05/19 at 21:00 Bisacodyl (Dulcolax) 10 mg BID PRN PO CONSTIPATION Last administered on 01/09/19 07:52; Admin Dose 10 MG; Start 01/05/19 at 08:00 Ferrous Sulfate (Ferrous Sulfate (Ec)) 325 mg BID PO Last administered on 01/10/19 07:46; Admin Dose 325 MG; Start 01/05/19 at 09:00 Folic Acid (Folic Acid) 1 mg DAILY PO Last administered on 01/10/19 07:45; Admin Dose 1 MG; Start 01/05/19 at 09:00 Insulin Glargine (Lantus) 10 units QHS SC Last administered on 01/09/19 20:44; Admin Dose 10 UNITS; Start 01/05/19 at 21:00 Levothyroxine Sodium (Synthroid) 125 mcg BEFORE BREAKFAST PO Last administered on 01/10/19 07:08; Admin Dose 125 MCG; Start 01/06/19 at 07:00 Metoprolol Tartrate (Lopressor) 50 mg BID PO Last administered on 01/10/19 07:46; Admin Dose 50 MG; Start 01/05/19 at 09:00 Nitroglycerin (Nitroglycerin (Sl Tab) 0.4 Mg) 0.4 tab Q5M PRN SL CHEST PAIN; Start 01/05/19 at 08:00 Polyethylene Glycol (Miralax) 17 gm DAILY PO Last administered on 01/09/19 07:53; Admin Dose 17 GM; Start 01/05/19 at 09:00 Pregabalin (Lyrica) 25 mg TID PO Last administered on 01/10/19 12:14; Admin Dose 25 MG; Start 01/05/19 at 09:00 Terazosin HCl (Hytrin) 10 mg HS PO Last administered on 01/09/19 19:57; Admin Dose 10 MG; Start 01/05/19 at 21:00 Levofloxacin/ Dextrose 100 ml @ 100 mls/hr Q48H IVPB Last administered on 01/09/19 07:54; Admin Dose 100 MLS/HR; Start 01/05/19 at 09:00 Latanoprost (Xalatan) 1 drop HS BOTH EYES Last administered on 01/09/19 20:54; Admin Dose 1 DROP; Start 01/05/19 at 21:00 Nystatin/ Triamcinolone Acetonide (Mycolog Cr) 1 applic BID TOP Last administered on 01/10/19 07:47; Admin Dose 1 APPLIC; Start 01/05/19 at 21:00 Acetaminophen/ Hydrocodone Bitart ([place] (5/325)) 1 tab Q6H PRN PO MODERATE PAIN LEVEL 4-6 Last administered on 01/10/19 10:06; Admin Dose 1 TAB; Start 01/05/19 at 14:30 Doxycycline Hyclate 100 mg/ Sodium Chloride 250 ml @ 250 mls/hr Q12 IVPB Last administered on 01/10/19 07:44; Admin Dose 250 MLS/HR; Start 01/05/19 at 21:00 Caspofungin 50 mg/ Sodium Chloride 250 ml @ 250 mls/hr Q24H IVPB Last admi nistered on 01/09/19 15:59; Admin Dose 250 MLS/HR; Start 01/06/19 at 15:30; Stop 01/11/19 at 15:29 Nystatin (Nystatin Powder) 1 applic BID TOP Last administered on 01/10/19 07:47; Admin Dose 1 APPLIC; Start 01/05/19 at 21:00 Miscellaneous Information 1 ea NOTE XX ; Start 01/06/19 at 10:00 Glucose (Glutose) 15 gm Q15M PRN PO DECREASED GLUCOSE; Start 01/06/19 at 10:00 Glucose (Glutose) 22.5 gm Q15M PRN PO DECREASED GLUCOSE; Start 01/06/19 at 10:00 Dextrose (D50w Syringe) 25 ml Q15M PRN IV DECREASED GLUCOSE; Start 01/06/19 at 10:00 Dextrose (D50w Syringe) 50 ml Q15M PRN IV DECREASED GLUCOSE; Start 01/06/19 at 10:00 Glucagon (Glucagen) 1 mg Q15M PRN IM DECREASED GLUCOSE; Start 01/06/19 at 10:00 Glucose (Glutose) 15 gm Q15M PRN BUCCAL DECREASED GLUCOSE; Start 01/06/19 at 10:00 Diagnostic Test (Pha) (Accu-Chek) 1 ea AC MEALS AND BEDTIME XX Last administered on 01/10/19at 12:09; Admin Dose 1 EA; Start 01/06/19 at 17:25 Diagnostic Test (Pha) (Accu-Chek) 1 ea 02 XX ; Start 01/08/19 at 02:00 Insulin Aspart (Novolog Insulin Pen) NOVOLOG *MILD* ALGORITHM WITH MEALS BEDTIME SC Last administered on 01/08/19at 17:40; Admin Dose 1 UNIT; Start 01/07/19 at 17:55 Ferric Sodium Gluconate Complex 125 mg/Sodium Chloride 110 ml @ 110 mls/hr DAILY@1300 IVPB Last administered on 01/10/19at 12:15; Admin Dose 110 MLS/HR; Start 01/10/19 at 13:00; Stop 01/14/19 at 13:59 Pantoprazole (Protonix Tab) 40 mg DAILY@06 PO ; Start 01/11/19 at 06:00 Assessment/Plan Hospital Course (Demo Recall) Assessment 1. Anemia of unclear etiology possibly secondary to renal insufficiency 2. Healthcare associated pneumonia 3. Chronic renal insufficiency and cellulitis 4. History of rheumatoid arthritis 5 history of essential hypertension 6. Urinary retention Plan 1. Continue antibiotics per ID. 2. Continue aspiration precautions 3. Consider iron studies and replacement 4. Consider PRBCs. 5. Urology recommendations consider transfer to [facility]. DIANA MCRAE MD, [facility] Jan 10, 2019 13:46
--- NOTE | 2019-01-10 14:11 | CONS ---
Assessment/Plan Assessment/Plan Hospital Course (Demo Recall) Awake, looks comfortable, no fevers Testicular ultrasound revealed right epididymitis no evidence of scrotal abscess or neoplasm Antimicrobials: Cancidas, doxycycline, Levaquin Allergy: Penicillin, sulfa Physical examination: Obese well-developed chronically ill-appearing - [place] man who is awake in no distress. Head atraumatic normocephalic sclera nonicteric. Neck is supple chest rise symmetrical breath sounds diminished bases. Heart: S1-S2. Abdomen obese soft bowel sounds present extremities without cyanosis Assessment: 1. Sepsis, present on admission 2. Pneumonia 3. 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 Advanced rheumatoid arthritis 5. Chronic atrial fibrillation 6. Diabetes 7. BPH 8. Bilateral groin cellulitis 9. Acute on chronic anemia 10. Right epididymitis Plan: Remains stable, continue antibiotics, f/u GI rec-s==> s/p EGD/colonoscopy 01/09/19 Consultation Date/Type/Reason Admit Date/Time Jan 05, 2019 at 00:47 Initial Consult Date 01/06/19 Type of Consult id Requesting Provider: CAMPOS CESAR MD Date/Time of Note DATE: 01/10/19 TIME: 14:10 Exam/Review of Systems Exam Vitals Vital Signs Date Temp Pulse Resp B/P (MAP) Pulse Ox O2 O2 Flow FiO2 Time Delivery Rate 01/10/19 69 12:33 01/10/19 97.5 18 138/64 94 Nasal 2.0 11:27 (88) Cannula Intake and Output 01/09/19 01/09/19 01/10/19 1515:00 23:00 07:00 IntakeIntake Total 350 ml 490 ml 480 ml OutputOutput Total 450 ml 350 ml BalanceBalance 350 ml 40 ml 130 ml Results Result Diagram: 01/10/19 1019 01/10/19 1019 Results 24hrs Laboratory Tests Test 01/10/19 00:37 01/10/19 07:43 01/10/19 10:19 01/10/19 12:13 Bedside Glucose 97 96 123 White Blood Count 11.2 H Red Blood Count 2.47 L Hemoglobin 7.1 L Hematocrit 23.2 L Mean Corpuscular 93.9 Volume Mean Corpuscular 28.7 L Hemoglobin Mean Corpuscular 30.6 L Hemoglobin Concent Red Cell 17.2 H Distribution Width Platelet Count 270 Mean Platelet Volume 10.2 Immature 0.800 H Granulocytes % Neutrophils % 82.9 H Lymphocytes % 7.4 L Monocytes % 8.3 Eosinophils % 0.5 Basophils % 0.1 Nucleated Red Blood 0.2 H Cells % Immature 0.090 H Granulocytes # Neutrophils # 9.2 H Lymphocytes # 0.8 Monocytes # 0.9 Eosinophils # 0.1 Basophils # 0.0 Nucleated Red Blood 0.0 Cells # Sodium Level 133 L Potassium Level 4.6 Chloride Level 106 Carbon Dioxide Level 16 L Anion Gap 11 Blood Urea Nitrogen 62 H Creatinine 2.53 H Est Glomerular Filtrat Rate mL/min Glucose Level 96 # Calcium Level 7.7 L Medications Medication Current Medications IV Flush (NS 3 ml) 3 ml PER PROTOCOL IV ; Start 01/05/19 at 08:00 Acetaminophen (Tylenol Tab) 650 mg Q6H PRN PO .PAIN 1-3 OR TEMP Last administered on 01/05/19 21:42; Admin Dose 650 MG; Start 01/05/19 at 08:00 Albuterol/ Ipratropium (Duoneb) 3 ml Q2H RESP THERAPY PRN HHN SHORTNESS OF BREATH; Start 01/05/19 at 08:00 Atorvastatin Calcium (Lipitor) 40 mg QHS PO Last administered on 01/09/19 19:57; Admin Dose 40 MG; Start 01/05/19 at 21:00 Bisacodyl (Dulcolax) 10 mg BID PRN PO CONSTIPATION Last administered on 01/09/19 07:52; Admin Dose 10 MG; Start 01/05/19 at 08:00 Ferrous Sulfate (Ferrous Sulfate (Ec)) 325 mg BID PO Last administered on 01/10/19 07:46; Admin Dose 325 MG; Start 01/05/19 at 09:00 Folic Acid (Folic Acid) 1 mg DAILY PO Last administered on 01/10/19 07:45; Admin Dose 1 MG; Start 01/05/19 at 09:00 Insulin Glargine (Lantus) 10 units QHS SC Last administered on 01/09/19 20:44; Admin Dose 10 UNITS; Start 01/05/19 at 21:00 Levothyroxine Sodium (Synthroid) 125 mcg BEFORE BREAKFAST PO Last administered on 01/10/19 07:08; Admin Dose 125 MCG; Start 01/06/19 at 07:00 Metoprolol Tartrate (Lopressor) 50 mg BID PO Last administered on 01/10/19 07:46; Admin Dose 50 MG; Start 01/05/19 at 09:00 Nitroglycerin (Nitroglycerin (Sl Tab) 0.4 Mg) 0.4 tab Q5M PRN SL CHEST PAIN; Start 01/05/19 at 08:00 Polyethylene Glycol (Miralax) 17 gm DAILY PO Last administered on 01/09/19 07:53; Admin Dose 17 GM; Start 01/05/19 at 09:00 Pregabalin (Lyrica) 25 mg TID PO Last administered on 01/10/19 12:14; Admin Do se 25 MG; Start 01/05/19 at 09:00 Terazosin HCl (Hytrin) 10 mg HS PO Last administered on 01/09/19 19:57; Admin Dose 10 MG; Start 01/05/19 at 21:00 Levofloxacin/ Dextrose 100 ml @ 100 mls/hr Q48H IVPB Last administered on 01/09/19 07:54; Admin Dose 100 MLS/HR; Start 01/05/19 at 09:00 Latanoprost (Xalatan) 1 drop HS BOTH EYES Last administered on 01/09/19 20:54; Admin Dose 1 DROP; Start 01/05/19 at 21:00 Nystatin/ Triamcinolone Acetonide (Mycolog Cr) 1 applic BID TOP Last administered on 01/10/19 07:47; Admin Dose 1 APPLIC; Start 01/05/19 at 21:00 Acetaminophen/ Hydrocodone Bitart ([place] (5/325)) 1 tab Q6H PRN PO MODERATE PAIN LEVEL 4-6 Last administered on 01/10/19 10:06; Admin Dose 1 TAB; Start 01/05/19 at 14:30 Doxycycline Hyclate 100 mg/ Sodium Chloride 250 ml @ 250 mls/hr Q12 IVPB Last administered on 01/10/19 07:44; Admin Dose 250 MLS/HR; Start 01/05/19 at 21:00 Caspofungin 50 mg/ Sodium Chloride 250 ml @ 250 mls/hr Q24H IVPB Last administered on 01/09/19 15:59; Admin Dose 250 MLS/HR; Start 01/06/19 at 15:30; Stop 01/11/19 at 15:29 Nystatin (Nystatin Powder) 1 applic BID TOP Last administered on 01/10/19at 07:47; Admin Dose 1 APPLIC; Start 01/05/19 at 21:00 Miscellaneous Information 1 ea NOTE XX ; Start 01/06/19 at 10:00 Glucose (Glutose) 15 gm Q15M PRN PO DECREASED GLUCOSE; Start 01/06/19 at 10:00 Glucose (Glutose) 22.5 gm Q15M PRN PO DECREASED GLUCOSE; Start 01/06/19 at 10:00 Dextrose (D50w Syringe) 25 ml Q15M PRN IV DECREASED GLUCOSE; Start 01/06/19 at 10:00 Dextrose (D50w Syringe) 50 ml Q15M PRN IV DECREASED GLUCOSE; Start 01/06/19 at 10:00 Glucagon (Glucagen) 1 mg Q15M PRN IM DECREASED GLUCOSE; Start 01/06/19 at 10:00 Glucose (Glutose) 15 gm Q15M PRN BUCCAL DECREASED GLUCOSE; Start 01/06/19 at 10:00 Diagnostic Test (Pha) (Accu-Chek) 1 ea AC MEALS AND BEDTIME XX Last administered on 01/10/19at 12:09; Admin Dose 1 EA; Start 01/06/19 at 17:25 Diagnostic Test (Pha) (Accu-Chek) 1 ea 02 XX ; Start 01/08/19 at 02:00 Insulin Aspart (Novolog Insulin Pen) NOVOLOG *MILD* ALGORITHM WITH MEALS BEDTIME SC Last administered on 01/08/19at 17:40; Admin Dose 1 UNIT; Start 01/07/19 at 17:55 Ferric Sodium Gluconate Complex 125 mg/Sodium Chloride 110 ml @ 110 mls/hr DAILY@1300 IVPB Last administered on 01/10/19at 12:15; Admin Dose 110 MLS/HR; S tart 01/10/19 at 13:00; Stop 01/14/19 at 13:59 Pantoprazole (Protonix Tab) 40 mg DAILY@06 PO ; Start 01/11/19 at 06:00 LUCIAN HARKINS NP Jan 10, 2019 14:11
[2019-01-10] MEDS: CASPOFUNGIN 50 MG in SOD CHLORIDE 0.9% 250 ML IVPB SCH (15:32)
--- NOTE | 2019-01-10 16:20 | CONS ---
Assessment/Plan Assessment/Plan Hospital Course (Demo Recall) IMPRESSION: 1. Atrial fibrillation, currently rate controlled.-off anticoagulation 2. Possible congestive heart failure by chest x-ray, which will be diastolic, acute on chronic by most recent echo with an EF of 60%. 3. Tricuspid regurgitation, moderate by most recent echo. 4. Acute on chronic renal failure. 5. Possible pneumonia. 6. History of coronary artery disease, status post coronary artery bypass graft surgery. 7. Dyslipidemia. 8. Rheumatoid arthritis. 9. Groin cellulitis. 10. Anemia-worsening requiring transfusions PRBC's.Now post-op s/p endoscopy ? findings 11. Diabetes mellitus. Recc: -Tele -serial ecg's -Continue BB's -Holding anticoagulation in the setting of anemia requiring transfusions. Now s/p endoscopy. ? results, ? ability to resume anticoagulation for AF -Continue statin -Contnue abx's Consultation Date/Type/Reason Admit Date/Time Jan 05, 2019 at 00:47 Initial Consult Date 01/08/19 Type of Consult Cardiology Reason for Consultation CHF Requesting Provider: CAMPOS CESAR MD Date/Time of Note DATE: 01/10/19 TIME: 16:18 Exam/Review of Systems Vital Signs Vitals Vital Signs Date Temp Pulse Resp B/P (MAP) Pulse Ox O2 O2 Flow FiO2 Time Delivery Rate 01/10/19 97.9 83 16 147/64 98 Nasal 2.0 15:26 (91) Cannula Intake and Output 01/09/19 01/09/19 01/10/19 1515:00 23:00 07:00 IntakeIntake Total 350 ml 490 ml 480 ml OutputOutput Total 450 ml 350 ml BalanceBalance 350 ml 40 ml 130 ml Exam Exam Review of Systems: CONSTITUTIONAL: No fevers, chills. PULMONARY: No sob CARDIOVASCULAR: No chest pain/palpitations GASTROINTESTINAL: No nausea/vomiting. GENITOURINARY: No hematuria/dysuria. MUSCULOSKELETAL: No myagias/arthalgias. PSYCHIATRIC: The patient denies depression. NEUROLOGIC: No weakness Constitutional: alert Psych: no complaints Head: normocephalic ENMT: mucosa pink and moist Neck: supple, jvd (9 cm water) Respiratory: diminished breath sounds (at bases/B) Cardiovascular: regular rate and rhythm Gastrointestinal: soft, non-tender Musculoskeletal: muscle weakness (generalized) Extremities: edema (none) Neurological: other (No focal deficits) Labs Result Diagram: 01/10/19 1019 01/10/19 1019 Results 24hrs Laboratory Tests Test 01/10/19 00:37 01/10/19 07:43 01/10/19 10:19 01/10/19 12:13 Bedside Glucose 97 96 123 White Blood Count 11.2 H Red Blood Count 2.47 L Hemoglobin 7.1 L Hematocrit 23.2 L Mean Corpuscular 93.9 Volume Mean Corpuscular 28.7 L Hemoglobin Mean Corpuscular 30.6 L Hemoglobin Concent Red Cell 17.2 H Distribution Width Platelet Count 270 Mean Platelet Volume 10.2 Immature 0.800 H Granulocytes % Neutrophils % 82.9 H Lymphocytes % 7.4 L Monocytes % 8.3 Eosinophils % 0.5 Basophils % 0.1 Nucleated Red Blood 0.2 H Cells % Immature 0.090 H Granulocytes # Neutrophils # 9.2 H Lymphocytes # 0.8 Monocytes # 0.9 Eosinophils # 0.1 Basophils # 0.0 Nucleated Red Blood 0.0 Cells # Sodium Level 133 L Potassium Level 4.6 Chloride Level 106 Carbon Dioxide Level 16 L Anion Gap 11 Blood Urea Nitrogen 62 H Creatinine 2.53 H Est Glomerular Filtrat Rate mL/min Glucose Level 96 # Calcium Level 7.7 L Medications Medications Current Medications IV Flush (NS 3 ml) 3 ml PER PROTOCOL IV ; Start 01/05/19 at 08:00 Acetaminophen (Tylenol Tab) 650 mg Q6H PRN PO .PAIN 1-3 OR TEMP Last administered on 01/05/19at 21:42; Admin Dose 650 MG; Start 01/05/19 at 08:00 Albuterol/ Ipratropium (Duoneb) 3 ml Q2H RESP THERAPY PRN HHN SHORTNESS OF BREATH; Start 01/05/19 at 08:00 Atorvastatin Calcium (Lipitor) 40 mg QHS PO Last administered on 01/09/19at 19:57; Admin Dose 40 MG; Start 01/05/19 at 21:00 Bisacodyl (Dulcolax) 10 mg BID PRN PO CONSTIPATION Last administered on at 07:52; Admin Dose 10 MG; Start 01/05/19 at 08:00 Ferrous Sulfate (Ferrous Sulfate (Ec)) 325 mg BID PO Last administered on 01/10/19at 07:46; Admin Dose 325 MG; Start 01/05/19 at 09:00 Folic Acid (Folic Acid) 1 mg DAILY PO Last administered on 01/10/19 07:45; Admin Dose 1 MG; Start 01/05/19 at 09:00 Insulin Glargine (Lantus) 10 units QHS SC Last administered on 01/09/19 20:44; Admin Dose 10 UNITS; Start 01/05/19 at 21:00 Levothyroxine Sodium (Synthroid) 125 mcg BEFORE BREAKFAST PO Last administered on 01/10/19 07:08; Admin Dose 125 MCG; Start 01/06/19 at 07:00 Metoprolol Tartrate (Lopressor) 50 mg BID PO Last administered on 01/10/19 07:46; Admin Dose 50 MG; Start 01/05/19 at 09:00 Nitroglycerin (Nitroglycerin (Sl Tab) 0.4 Mg) 0.4 tab Q5M PRN SL CHEST PAIN; Start 01/05/19 at 08:00 Polyethylene Glycol (Miralax) 17 gm DAILY PO Last administered on 01/09/19 07:53; Admin Dose 17 GM; Start 01/05/19 at 09:00 Pregabalin (Lyrica) 25 mg TID PO Last administered on 01/10/19 12:14; Admin Dose 25 MG; Start 01/05/19 at 09:00 Terazosin HCl (Hytrin) 10 mg HS PO Last administered on 01/09/19 19:57; Admin Dose 10 MG; Start 01/05/19 at 21:00 Levofloxacin/ Dextrose 100 ml @ 100 mls/hr Q48H IVPB Last administered on 01/09/19 07:54; Admin Dose 100 MLS/HR; Start 01/05/19 at 09:00 Latanoprost (Xalatan) 1 drop HS BOTH EYES Last administered on 01/09/19 20:54; Admin Dose 1 DROP; Start 01/05/19 at 21:00 Nystatin/ Triamcinolone Acetonide (Mycolog Cr) 1 applic BID TOP Last administered on 01/10/19 07:47; Admin Dose 1 APPLIC; Start 01/05/19 at 21:00 Acetaminophen/ Hydrocodone Bitart ([place] (5/325)) 1 tab Q6H PRN PO MODERATE PAIN LEVEL 4-6 Last administered on 01/10/19at 10:06; Admin Dose 1 TAB; Start 01/05/19 at 14:30 Doxycycline Hyclate 100 mg/ Sodium Chloride 250 ml @ 250 mls/hr Q12 IVPB Last administered on 01/10/19at 07:44; Admin Dose 250 MLS/HR; Start 01/05/19 at 21:00 Caspofungin 50 mg/ Sodium Chloride 250 ml @ 250 mls/hr Q24H IVPB Last administered on 01/10/19at 15:32; Admin Dose 250 MLS/HR; Start 01/06/19 at 15:30; Stop 01/11/19 at 15:29 Nystatin (Nystatin Powder) 1 applic BID TOP Last administered on 01/10/19at 07:47; Admin Dose 1 APPLIC; Start 01/05/19 at 21:00 Miscellaneous Information 1 ea NOTE XX ; Start 01/06/19 at 10:00 Glucose (Glutose) 15 gm Q15M PRN PO DECREASED GLUCOSE; Start 01/06/19 at 10:00 Glucose (Glutose) 22.5 gm Q15M PRN PO DECREASED GLUCOSE; Start 01/06/19 at 10:00 Dextrose (D50w Syringe) 25 ml Q15M PRN IV DECREASED GLUCOSE; Start 01/06/19 at 10:00 Dextrose (D50w Syringe) 50 ml Q15M PRN IV DECREASED GLUCOSE; Start 01/06/19 at 10:00 Glucagon (Glucagen) 1 mg Q15M PRN IM DECREASED GLUCOSE; Start 01/06/19 at 10:00 Glucose (Glutose) 15 gm Q15M PRN BUCCAL DECREASED GLUCOSE; Start 01/06/19 at 10:00 Diagnostic Test (Pha) (Accu-Chek) 1 ea AC MEALS AND BEDTIME XX Last administered on 01/10/19at 12:09; Admin Dose 1 EA; Start 01/06/19 at 17:25 Diagnostic Test (Pha) (Accu-Chek) 1 ea 02 XX ; Start 01/08/19 at 02:00 Insulin Aspart (Novolog Insulin Pen) NOVOLOG *MILD* ALGORITHM WITH MEALS BEDTIME SC Last administered on 01/08/19at 17:40; Admin Dose 1 UNIT; Start 01/07/19 at 17:55 Ferric Sodium Gluconate Complex 125 mg/Sodium Chloride 110 ml @ 110 mls/hr DAILY@1300 IVPB Last administered on 01/10/19at 12:15; Admin Dose 110 MLS/HR; Start 01/10/19 at 13:00; Stop 01/14/19 at 13:59 Pantoprazole (Protonix Tab) 40 mg DAILY@06 PO ; Start 01/11/19 at 06:00 MARJORIE JAIN Jan 10, 2019 16:20
[2019-01-11] MEDS ORDERED: PANTOPRAZOLE (EC) 40 MG TAB PO SCH (06:00)
[2019-01-11 14:15] VITALS: BP 131/58; PULSE 66; RESP 16
== END 2019-01-10 17:10 | DRG 871 ==
LOC: E/R 21:19 → TEL 01-05 00:47 → EDBEDREQTM 01-05 04:47 → EDBEDREQ 01-05 04:47
PROVIDERS: ADMIT Internal Medicine; ATTEND Internal Medicine Nephrology
PROC: 30233N1 Transfusion of Nonautologous Red Blood Cells into Peripheral Vein, Percutaneous Approach (ICD-10-PCS; principal; 2019-01-06)
PROC: 0DB68ZX Excision of Stomach, Via Natural or Artificial Opening Endoscopic, Diagnostic (ICD-10-PCS; 2019-01-09)
PROC: 0DJD8ZZ Inspection of Lower Intestinal Tract, Via Natural or Artificial Opening Endoscopic (ICD-10-PCS; 2019-01-09 17:30)
DX: A41.9 Sepsis, unspecified organism (principal); J18.9 Pneumonia, unspecified organism; I50.33 Acute on chronic diastolic (congestive) heart failure; N17.9 Acute kidney failure, unspecified; I13.0 Hypertensive heart and chronic kidney disease with heart failure and stage 1 through stage 4 chronic kidney disease, or unspecified chronic kidney disease; L03.314 Cellulitis of groin; J44.1 Chronic obstructive pulmonary disease with (acute) exacerbation; N18.9 Chronic kidney disease, unspecified; Z95.1 Presence of aortocoronary bypass graft; Z95.828 Presence of other vascular implants and grafts; G62.9 Polyneuropathy, unspecified; I25.10 Atherosclerotic heart disease of native coronary artery without angina pectoris; M06.9 Rheumatoid arthritis, unspecified; I73.9 Peripheral vascular disease, unspecified; I48.2 Chronic atrial fibrillation; E03.9 Hypothyroidism, unspecified; E78.5 Hyperlipidemia, unspecified; E11.9 Type 2 diabetes mellitus without complications; N40.0 Benign prostatic hyperplasia without lower urinary tract symptoms; D69.6 Thrombocytopenia, unspecified; R65.20 Severe sepsis without septic shock; I07.1 Rheumatic tricuspid insufficiency; D63.1 Anemia in chronic kidney disease; K64.4 Residual hemorrhoidal skin tags; K44.9 Diaphragmatic hernia without obstruction or gangrene; K29.00 Acute gastritis without bleeding; D50.0 Iron deficiency anemia secondary to blood loss (chronic)
CPT/HCPCS: 36415; 36430; 71045; 76700; 76870; 80048; 80053; 80061; 81001; 81003; 82270; 82550; 82553; 82607; 82668; 82728; 82746; 82962; 83036; 83090; 83540; 83605; 83735; 83921; 84100; 84300; 84484; 85014; 85018; 85025; 85045; 85610; 85730; 86850; 86900; 86901; 86920; 87081; 87086; 87102; 88305; 88312; 89190; 93005; 93971; 96365; 96375; 97110; 97163; 97530; C9113; J0692; J1644; J1815; J1956; J2916; J3370; J3475; J7030; J7042; J7050; P9016

== ENCOUNTER 2019-01-10 17:45 | Inpatient (IN) | payer MEDICARE, BC ==
[~2019-01-10] VITALS: Ht 165.1 cm; Wt 83.5 kg
[2019-01-10 17:30] VITALS: BP 145/85; PULSE 78; RESP 18
[~2019-01-10 17:45] MED LIST changes: -DOXY100C42 PO; +FURO-110 PO; -LEVO500T48 PO; -MED4DP PO
--- NOTE | 2019-01-10 18:30 | HP ---
Date/Time of Note Date/Time of Note DATE: 01/10/19 TIME: 18:30 Assessment/Plan VTE Prophylaxis Pharmacological prophylaxis: NA/contraindicated Pharm contraindication: anticoag not tolerated Assessment/Plan Hospital Course 1. Recent sepsis, SOB, weakness. Pt had recent bilateral pneumonia. 2. COPD, on oxygen at home 3. Acute on chronic renal failure likely secondary to sepsis 4. Hypertension. 5. Hyperlipidemia. 6. Hypothyroidism. 7. Normocytic normochromic chronic anemia with recent hemoglobin drop in HG to 7.0 8. Bilateral groin cellulitis more likely associated with mateus, patches in groin and axilla bilaterally. Back rash 9. History of rheumatoid arthritis with joint deformities. 10. Diabetes type 2. 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 Peripheral vascular disease. 13. Chronic a.fib 14. right arm edema Assessment/Plan -US right arm is negative -DVT proph. unable to tolerate Eliquiz, SCD -GI prophylaxis Faotidine BID -pain control -admitted to ARU. -c/w home meds -nyst cream BID axilla -supp. oxygen HPI/ROS Admit Date/Time Admit Date/Time Jan 10, 2019 at 17:45 Hx of Present Illness This is a 88-year-old male with a past medical history of recent pneumonia, rheumatoid arthritis, COPD, former smoker, degenerative disk disease, history of CABG x2 in the past, DM type II was in [facility] due to sepsis, pneumonia. He recently was hospital in November 2018, was transferred today to ARU for rehabilitation. Pt was not been able to be out of bed much for the past 2 days, his physic activity declined severely since November,. Pt. kidney f unction also decreased, his creatinine was low around 3. The patient denied any abdominal pain, nausea, vomiting or diarrhea. The course of a/b is not finished. PAST MEDICAL HISTORY: 1. History of CABG. 2. Rheumatoid arthritis. 3. History of AFib. 4. History of coronary artery disease. 5. Hypertension. 6. History of peripheral vascular disease. ROS Respiratory: shortness of breath Cardiovascular: chest pain; No no complaints, No edema, No lightheadedness, No orthopenea, No palpitations, No paroxysmal nocturnal dyspnea, No other Gastrointestinal: decreased appetite; No no complaints, No pain, No blood, No constipation, No diarrhea, No flatus, No nausea, No passing stool, No vomiting, No other PMH/Family/Social Past Medical History Medical History: congestive heart failure, coronary artery disease, diabetes, hypertension, renal disease Coded Allergies: Penicillins (Verified Allergy, Severe, shortness of breath, 01/05/19) Sulfa (Sulfonamide Antibiotics) (Verified Allergy, Severe, Shortness of breath, 01/05/19) sulfadiazine (Verified Allergy, Severe, shortness of breath, 01/05/19) Past Surgical History Past Surgical Hx: angioplasty, endoscopy (angioplasy), other (stent) Family History Significant Family History: no pertinent family hx Social History Alcohol Use: none Smoking Status: Former smoker Drug Use: none Exam/Review of Systems Exam Constitutional: alert, oriented Psych: no complaints Head: normocephalic Neck: supple Respiratory: congested cough, diminished breath sounds Cardiovascular: regular rate and rhythm (Afib.) Gastrointestinal: soft COOPER CARO Jan 10, 2019 18:30
[2019-01-10] MEDS ORDERED: LACTULOSE 30ML CUP PO PRN (19:00)
[2019-01-10] MEDS ORDERED: PENDING SANTYL ORDER FOR WOUND CARE XX PRN (19:00)
[2019-01-10] MEDS ORDERED: ALBUTEROL/IPRATROPIUM (NEB) 3 ML AMP HHN PRN (19:30)
[2019-01-10] MEDS ORDERED: BISACODYL (EC) 5 MG TAB PO PRN (19:30)
[2019-01-10] MEDS ORDERED: GLUCAGON 1 MG INJ IM PRN (19:30)
[2019-01-10] MEDS ORDERED: GLUCOSE GEL 15 GRAM TUBE BUCCAL PRN (19:30)
[2019-01-10] MEDS ORDERED: GLUCOSE GEL 15 GRAM TUBE PO PRN ×2 (19:30)
[2019-01-10] MEDS ORDERED: ACETAMINOPHEN 325 MG TAB PO PRN (19:30)
[2019-01-10] MEDS ORDERED: NITROGLYCERIN (SL) 0.4 MG TAB SL PRN (19:30)
[2019-01-10] MEDS ORDERED: NACL 0.9% 3 ML SYG IV SCH (19:30)
[2019-01-10] MEDS ORDERED: DEXTROSE 50% 50 ML SYRINGE IV PRN ×2 (19:30)
[2019-01-10 20:00] VITALS: Ht 165.1 cm; Wt 83.5 kg
[2019-01-10] MEDS: ACCU-CHEK XX SCH (21:00)
[2019-01-10] MEDS ORDERED: INSULIN GLARGINE [LANTus] (100 UNITS/ML) SYG SC SCH (21:00)
[2019-01-10] MEDS: INSULIN ASPART [NOVOLOG] 3 ML PEN SC SCH (21:00)
[2019-01-10 21:19] VITALS: BP 123/63; PULSE 90; RESP 18
[2019-01-10] MEDS: FERROUS SULFATE (EC) 325 MG TAB PO SCH (21:21)
[2019-01-10] MEDS: SENNA TAB PO SCH (21:21)
[2019-01-10] MEDS: DOCUSATE SODIUM 100 MG CAP PO SCH (21:21)
[2019-01-10] MEDS: METOPROLOL 50 MG TAB PO SCH (21:22)
[2019-01-10] MEDS: HYDROCODONE/APAP (5/325) TAB PO PRN (21:23)
[2019-01-10] MEDS: LATANOPROST 0.005% 2.5 ML OPH BOTH EYES SCH (21:28)
[2019-01-10] MEDS: ATORVASTATIN 40 MG TAB PO SCH (21:29)
[2019-01-10] MEDS: PREGABALIN 25 MG CAP PO SCH (21:29)
[2019-01-10] MEDS: TERAZOSIN 5 MG CAP PO SCH (21:30)
[2019-01-10] MEDS: NYSTATIN 30 GM POWDER BTL TOP SCH (21:31)
[2019-01-10] MEDS: NYSTATIN/TRIAMCINOLONE 15 GM CR TOP SCH (21:31)
[2019-01-10] MEDS: DOXYCYCLINE 100 MG in SOD CHLORIDE 0.9% 250 ML IVPB SCH (21:33)
[2019-01-11] VITALS (7 sets, daily range): BP systolic 109–160; BP diastolic 48–84; PULSE 66–85; RESP 16–20
[2019-01-11] MEDS: ACCU-CHEK XX SCH ×5 (02:00→21:00)
[2019-01-11] MEDS: LEVOTHYROXINE 125 MCG TAB PO SCH (06:04)
[2019-01-11] MEDS: PANTOPRAZOLE (EC) 40 MG TAB PO SCH (06:04)
[2019-01-11] MEDS: INSULIN ASPART [NOVOLOG] 3 ML PEN SC SCH ×4 (07:35→21:00)
[2019-01-11] MEDS: NYSTATIN 30 GM POWDER BTL TOP SCH ×2 (08:53→21:04)
[2019-01-11] MEDS: NYSTATIN/TRIAMCINOLONE 15 GM CR TOP SCH ×2 (08:53→21:04)
[2019-01-11] MEDS: FERROUS SULFATE (EC) 325 MG TAB PO SCH ×2 (08:54→20:43)
[2019-01-11] MEDS: FOLIC ACID 1 MG TAB PO SCH (08:54)
[2019-01-11] MEDS: METOPROLOL 50 MG TAB PO SCH ×2 (08:54→20:53)
[2019-01-11] MEDS: PREGABALIN 25 MG CAP PO SCH ×3 (08:54→20:44)
[2019-01-11] MEDS: POLYETHYLENE GLYCOL 17 GM PACKET PO SCH (08:54)
[2019-01-11] MEDS: DOCUSATE SODIUM 100 MG CAP PO SCH ×2 (08:54→20:44)
[2019-01-11] MEDS ORDERED: LEVOFLOXACIN 500MG/D5W (PMX) 100 ML IVPB SCH (09:00)
[2019-01-11] MEDS: DOXYCYCLINE 100 MG in SOD CHLORIDE 0.9% 250 ML IVPB SCH (09:04)
[2019-01-11] MEDS ORDERED: SOD CHLORIDE 0.9% 250 ML IV* ONE (10:59)
--- NOTE | 2019-01-11 11:35 | CONS ---
DATE OF ADMISSION: 01/10/2019 DATE OF CONSULTATION: 01/11/2019 REHABILITATION POST ADMISSION PHYSICIAN EVALUATION REHABILITATION IMPAIRMENT CATEGORY: Severe rheumatoid arthritis affecting multiple joints with decre ased range of motion. ACTIVE COMORBIDITIES: 1. Critical illness myopathy. 2. Debility secondary to sepsis, pneumonia. 3. Congestive heart failure. 4. Degenerative disk disease. 5. Coronary artery disease with history of coronary artery bypass graft x2. 6. Peripheral vascular disease. 7. Atrial fibrillation. 8. Chronic obstructive pulmonary disease. 9. Acute on chronic kidney disease. 10. Hypertension. 11. Hyperlipidemia. 12. Cellulitis. 13. Dermatologic irritation with skin excoriation, moisture related fissure in the sacral region, an d diffuse epidermal desquamation. 14. Gastritis. 15. Urinary retention with a Wade catheter. 16. Impairments in self-care and mobility. 17. Diabetes mellitus type 2, labile. HISTORY OF PRESENT ILLNESS: The patient is a pleasant 88-year-old gentleman with a history of multip le medical comorbidities, who was admitted 01/05/2019 with a skin rash, fever, shortness of breath an d weakness. The patient was diagnosed with sepsis and pneumonia in addition to chronic obstructive p ulmonary disease exacerbation. The patient's hospital course also notable for acute on chronic kidne y disease, significant anemia, cellulitis, urinary retention, gastritis noted on EGD, and significant impairments in self-care and mobility as compared to baseline. The patient has been cleared to [facility] to the rehabilitation unit for comprehensive interdisciplinary rehab care. FUNCTIONAL HISTORY: Prior to recent events, he was independent in self-care tasks and mobility inclu ding ambulation. Currently, he is a moderate to maximal assist for self-care and mobility tasks. I have reviewed the preadmission screen and patient's current functional status is consistent with e preadmission screen. FAMILY AND SOCIAL HISTORY: The patient reports living at home with family and hopes to return there upon discharge. PAST MEDICAL HISTORY: 1. Diabetes mellitus type 2. 2. Rheumatoid arthritis affecting multiple joints. 3. Coronary artery disease with history of coronary artery bypass graft. 4. Peripheral vascular disease. 5. Chronic atrial fibrillation. 6. Hypertension. 7. Diabetes mellitus type 2. 8. Hyperlipidemia. 9. Chronic obstructive pulmonary disease, on home oxygen. 10. Anemia of chronic disease. 11. Degenerative disk disease. CURRENT MEDICATIONS: 1. Albuterol inhaler. 2. Lipitor 40 mg p.o. at bedtime. 3. Caspofungin IV. 4. Insulin sliding scale. 5. Ferrous sulfate 325 p.o. b.i.d. 6. Folic acid 1 mg p.o. daily. 7. [place] p.r.n. 8. Lantus 10 units subcu at bedtime. 9. Xalatan eyedrops. 10. Levofloxacin IV. 11. Synthroid 125 mcg p.o. q.a.m. 12. Lopressor 50 mg p.o. b.i.d. 13. Nitroglycerin sublingual p.r.n. 14. Mycolog topically b.i.d. 15. Nystatin powder b.i.d. 16. Protonix 40 mg p.o. daily. 17. Lyrica 25 mg p.o. t.i.d. 18. Hytrin 10 mg p.o. at bedtime. ALLERGIES 1. PENICILLIN. 2. SULFA. PHYSICAL EXAMINATION: VITAL SIGNS: He is currently afebrile with stable vital signs. HEENT: Extraocular motions appear intact. Oropharynx clear. NECK: Supple. LUNGS: Lungs with notable wheeze. CARDIAC: S1, S2. ABDOMEN: Soft, nontender, positive bowel sounds. INTEGUMENT: Exam reveals diffuse flaking skin and erythema. There is scrotal excoriation and moistu re related fissure at the sacral area. NEUROLOGIC: He is awake and alert and oriented to person and hospital. He will follow simple 1-step commands. He demonstrates antigravity strength but has notable decreased range of motion with decre ased forward flexion and abduction in the bilateral shoulders. He has notable rheumatic changes in b ilateral hands and feet. PLAN: The patient has been admitted for comprehensive interdisciplinary acute rehab and is anticipat ed to tolerate 3 hours of daily therapy in divided doses for at least 5/7 days a week. The treatment plan will include: 1. Physical therapy to focus on bed mobility, transfers, and household ambulation with the goal of h aving the patient reach a standby assist level. 2. Occupational therapy to focus on hygiene, grooming, dressing, bathing, and toileting activities w ith the goal of having the patient reach a standby assist level. 3. Rehabilitation nursing for carryover of therapeutic interventions, the goal of continent of bowel and bladder, the goal of improved skin integrity with offloading, improved nutrition, and patient ed ucation. REHABILITATION BARRIER: Decreased range of motion in extremities. INTERVENTION FOR BARRIER: Interdisciplinary approach. ESTIMATED LENGTH OF STAY: 14 days. DISPOSITION GOAL: Home. As a board certified senior project controls specialist in physical medicine and rehabilitation, I attest that this patient qualifies for an interdisciplinary acute rehabilitation unit stay and is best managed a t this level of care given the complexity of his medical issues and his significant impairments in se lf-care and mobility. The patient is anticipated to make reasonable goals in a reasonable period of t carlos. After thorough review of the patient's medical records and full examination, I believe that thi s patient meets criteria for acute rehabilitation unit level of care under CMS guidelines. Dictated By: DEEPALI LOUIE/NTS Conf#: [id number] DID#: [id number] CC: IVAN AKHTAR;*EndCC*
[2019-01-11] MEDS: HYDROCODONE/APAP (5/325) TAB PO PRN ×2 (11:36→20:47)
--- NOTE | 2019-01-11 12:20 | PN ---
GORDOCOOPER 01/11/19 1220: Date/Time of Note Date/Time of Note DATE: 01/11/19 TIME: 12:18 Assessment/Plan VTE Prophylaxis [place] [facility] [place] risk: 8 SCD applied ([place] [facility] [place] Yes Pharmacological prophylaxis: NA/contraindicated Pharm contraindication: anticoag not tolerated Lines/Catheters IV C[facility] Type (from [facility] Saline Lock Urinary Cath still in place: Yes Reason Cath still needed: urinary retention Assessment/Plan Hospital Course 1. Recent sepsis, SOB, weakness. Pt had recent bilateral pneumonia. 2. COPD, on oxygen at home 3. Acute on chronic renal failure likely secondary to sepsis 4. Hypertension. 5. Hyperlipidemia. 6. Hypothyroidism. 7. Normocytic normochromic chronic anemia with recent hemoglobin drop in HG to 7.0, to day 6.9 8. Bilateral groin cellulitis more likely associated with mateus, patches in groin and axilla bilaterally. Back rash 9. History of rheumatoid arthritis with joint deformities. 10. Diabetes type 2. 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 Peripheral vascular disease. 13. Chronic a.fib 14. right arm edema Assessment/Plan -US right arm is negative -DVT proph. unable to tolerate Eliquiz, SCD -GI prophylaxis Faotidine BID -pain control -admitted to ARU. -c/w home meds -nyst cream BID axilla -supp. oxygen Result Diagram: 01/11/19 0820 01/11/19 0630 Results 24hrs Laboratory Tests Test 01/10/19 19:00 01/10/19 21:16 01/11/19 06:30 01/11/19 07:44 Urine Color YELLOW Urine Clarity SLIGHTLY CLOUDY A Urine pH 5.0 Urine Specific 1.014 [place] Urine Ketones NEGATIVE Urine Nitrite NEGATIVE Urine Bilirubin NEGATIVE Urine NEGATIVE Urobilinogen Urine Leukocyte TRACE A Esterase Urine Microscopic 9 H RBC Urine Microscopic 3 WBC Urine Hemoglobin NEGATIVE Urine Glucose NEGATIVE Urine Total NEGATIVE Protein Bedside Glucose 154 69 L White Blood Count 11.3 H Red Blood Count 2.30 L Hemoglobin 6.8 *L Hematocrit 20.9 L Mean Corpuscular 90.9 Volume Mean Corpuscular 29.6 Hemoglobin Mean Corpuscular 32.5 Hemoglobin Concen t Red Cell 16.9 H Distribution Width Platelet Count 277 Mean Platelet 10.0 Volume Immature 1.200 H Granulocytes % Neutrophils % 74.2 Lymphocytes % 13.4 L Monocytes % 10.1 Eosinophils % 1.0 Basophils % 0.1 Nucleated Red 0.4 H Blood Cells % Immature 0.130 H Granulocytes # Neutrophils # 8.4 H Lymphocytes # 1.5 Monocytes # 1.1 H Eosinophils # 0.1 Basophils # 0.0 Nucleated Red 0.0 Blood Cells # Sodium Level 134 L Potassium Level 4.4 Chloride Level 104 Carbon Dioxide 20 L Level Anion Gap 10 Blood Urea 59 H Nitrogen Creatinine 2.25 H Est Glomerular Filtrat Rate mL/min Glucose Level 46 #*L Calcium Level 7.8 L Total Bilirubin 0.9 Direct Bilirubin 0.00 Indirect 0.9 Bilirubin Aspartate Amino 14 L Transf (AST/SGOT) Alanine 17 Aminotransferase (ALT/SGPT) Alkaline 71 Phosphatase Total Protein 5.2 L Albumin 2.5 L Globulin 2.70 Albumin/Globulin 0.92 Ratio Thyroid 2.630 Stimulating Hormone (TSH) Test 01/11/19 08:05 01/11/19 08:20 01/11/19 08:24 01/11/19 11:58 Bedside Glucose 81 108 118 Hemoglobin 6.9 *L Hematocrit 21.7 L Subjective 24 Hr Interval Summary Gastrointestinal: constipation Exam/Review of Systems Exam Vitals Vital Signs Date Temp Pulse Resp B/P (MAP) Pulse Ox O2 O2 Flow FiO2 Time Delivery Rate 01/11/19 2.0 12:13 01/11/19 97.7 67 16 109/48 96 Nasal 10:03 (68) Cannula Intake and Output 01/10/19 01/10/19 01/11/19 1515:00 23:00 07:00 IntakeIntake Total 850 ml 100 ml OutputOutput Total 450 ml 800 ml BalanceBalance 400 ml -700 ml Constitutional: alert, oriented Eyes: nl conjunctiva ENMT: nl external ears & nose Neck: supple Respiratory: congested cough, diminished breath sounds, other (rhonchi) Genitourinary - Male: other (rinaldi) Results Result Diagram: 01/11/19 0820 01/11/19 0630 Results 24hrs Laboratory Tests Test 01/10/19 19:00 01/10/19 21:16 01/11/19 06:30 01/11/19 07:44 Urine Color YELLOW Urine Clarity SLIGHTLY CLOUDY A Urine pH 5.0 Urine Specific 1.014 [place] Urine Ketones NEGATIVE Urine Nitrite NEGATIVE Urine Bilirubin NEGATIVE Urine NEGATIVE Urobilinogen Urine Leukocyte TRACE A Esterase Urine Microscopic 9 H RBC Urine Microscopic 3 WBC Urine Hemoglobin NEGATIVE Urine Glucose NEGATIVE Urine Total NEGATIVE Protein Bedside Glucose 154 69 L White Blood Count 11.3 H Red Blood Count 2.30 L Hemoglobin 6.8 *L Hematocrit 20.9 L Mean Corpuscular 90.9 Volume Mean Corpuscular 29.6 Hemoglobin Mean Corpuscular 32.5 Hemoglobin Concen t Red Cell 16.9 H Distribution Width Platelet Count 277 Mean Platelet 10.0 Volume Immature 1.200 H Granulocytes % Neutrophils % 74.2 Lymphocytes % 13.4 L Monocytes % 10.1 Eosinophils % 1.0 Basophils % 0.1 Nucleated Red 0.4 H Blood Cells % Immature 0.130 H Granulocytes # Neutrophils # 8.4 H Lymphocytes # 1.5 Monocytes # 1.1 H Eosinophils # 0.1 Basophils # 0.0 Nucleated Red 0.0 Blood Cells # Sodium Level 134 L Potassium Level 4.4 Chloride Level 104 Carbon Dioxide 20 L Level Anion Gap 10 Blood Urea 59 H Nitrogen Creatinine 2.25 H Est Glomerular Filtrat Rate mL/min Glucose Level 46 #*L Calcium Level 7.8 L Total Bilirubin 0.9 Direct Bilirubin 0.00 Indirect 0.9 Bilirubin Aspartate Amino 14 L Transf (AST/SGOT) Alanine 17 Aminotransferase (ALT/SGPT) Alkaline 71 Phosphatase Total Protein 5.2 L Albumin 2.5 L Globulin 2.70 Albumin/Globulin 0.92 Ratio Thyroid 2.630 Stimulating Hormone (TSH) Test 01/11/19 08:05 01/11/19 08:20 01/11/19 08:24 01/11/19 11:58 Bedside Glucose 81 108 118 Hemoglobin 6.9 *L Hematocrit 21.7 L Medications Medication Current Medications Docusate Sodium (Colace) 100 mg BID PO Last administered on 01/11/19at 08:54; Admin Dose 100 MG; Start 01/10/19 at 21:00 Senna (Senokot) 1 tab HS PO Last administered on 01/10/19at 21:21; Admin Dose 1 TAB; Start 01/10/19 at 21:00 Lactulose (Enulose) 20 gm DAILY PRN PO CONSTIPATION; Start 01/10/19 at 19:00 Acetaminophen (Tylenol Tab) 650 mg Q4H PRN PO PAIN; Start 01/10/19 at 19:00 Miscellaneous Information (Pending Santyl Order For Wound Care) This patient ramirez... PRN PRN XX WOUND CARE; Start 01/10/19 at 19:00 Diagnostic Test (Pha) (Accu-Chek) 1 ea AC MEALS AND BEDTIME XX Last administered on 01/11/19at 07:05; Admin Dose 1 EA; Start 01/10/19 at 21:00 Diagnostic Test (Pha) (Accu-Chek) 1 ea 02 XX ; Start 01/11/19 at 02:00 Albuterol/ Ipratropium (Duoneb) 3 ml Q2H RESP THERAPY PRN HHN SHORTNESS OF BREATH Last administered on 01/11/19 09:39; Admin Dose 3 ML; Start 01/10/19 at 19:30 Atorvastatin Calcium (Lipitor) 40 mg QHS PO Last administered on 01/10/19at 21:29; Admin Dose 40 MG; Start 01/10/19 at 21:00 Bisacodyl (Dulcolax) 10 mg BID PRN PO CONSTIPATION; Start 01/10/19 at 19:30 Caspofungin 50 mg/ Sodium Chloride 250 ml @ 250 mls/hr Q24H IVPB ; Start 01/11/19 at 15:30 Doxycycline Hyclate 100 mg/ Sodium Chloride 250 ml @ 250 mls/hr Q12 IVPB Last administered on 01/11/19at 09:04; Admin Dose 250 MLS/HR; Start 01/10/19 at 21:00 Ferrous Sulfate (Ferrous Sulfate (Ec)) 325 mg BID PO Last administered on 01/11/19 08:54; Admin Dose 325 MG; Start 01/10/19 at 21:00 Folic Acid (Folic Acid) 1 mg DAILY PO Last administered on 01/11/19at 08:54; Admin Dose 1 MG; Start 01/11/19 at 09:00 Acetaminophen/ Hydrocodone Bitart ([place] (5/325)) 1 tab Q6H PRN PO MODERATE PAIN LEVEL 4-6 Last administered on 01/11/19at 11:36; Admin Dose 1 TAB; Start 01/10/19 at 19:30 Insulin Aspart (Novolog Insulin Pen) NOVOLOG *MILD* ALGORITHM WITH MEALS BEDTIME SC ; Start 01/10/19 at 21:00 Insulin Glargine (Lantus) 10 units QHS SC Last administered on 01/10/19 21:59; Admin Dose 10 UNITS; Start 01/10/19 at 21:00 Latanoprost (Xalatan) 1 drop HS BOTH EYES Last administered on 01/10/19 21:28; Admin Dose 1 DROP; Start 01/10/19 at 21:00 Levofloxacin/ Dextrose 100 ml @ 100 mls/hr Q48H IVPB Last administered on 01/11/19 08:55; Admin Dose 100 MLS/HR; Start 01/11/19 at 09:00 Levothyroxine Sodium (Synthroid) 125 mcg BEFORE BREAKFAST PO Last administered on 01/11/19 06:04; Admin Dose 125 MCG; Start 01/11/19 at 07:00 Metoprolol Tartrate (Lopressor) 50 mg BID PO Last administered on 01/11/19 08:54; Admin Dose 50 MG; Start 01/10/19 at 21:00 Nitroglycerin (Nitroglycerin (Sl Tab) 0.4 Mg) 0.4 tab Q5M PRN SL CHEST PAIN; Start 01/10/19 at 19:30 Nystatin/ Triamcinolone Acetonide (Mycolog Cr) 1 applic BID TOP Last administered on 01/11/19 08:53; Admin Dose 1 APPLIC; Start 01/10/19 at 21:00 Nystatin (Nystatin Powder) 1 applic BID TOP Last administered on 01/11/19 08:53; Admin Dose 1 APPLIC; Start 01/10/19 at 21:00 Pantoprazole (Protonix Tab) 40 mg DAILY@06 PO Last administered on 01/11/19 06:04; Admin Dose 40 MG; Start 01/11/19 at 06:00 Polyethylene Glycol (Miralax) 17 gm DAILY PO Last administered on 01/11/19 08:54; Admin Dose 17 GM; Start 01/11/19 at 09:00 Pregabalin (Lyrica) 25 mg TID PO Last administered on 01/11/19 08:54; Admin Dose 25 MG; Start 01/10/19 at 21:00 IV Flush (NS 3 ml) 3 ml PER PROTOCOL IV ; Start 01/10/19 at 19:30 Terazosin HCl (Hytrin) 10 mg HS PO Last administered on 01/10/19 21:30; Admin Dose 10 MG; Start 01/10/19 at 21:00 Ferric Sodium Gluconate Complex 125 mg/Sodium Chloride 110 ml @ 110 mls/hr DAILY@1300 IVPB ; Start 01/11/19 at 13:00; Stop 01/14/19 at 13:59 Miscellaneous Information 1 ea NOTE XX ; Start 01/10/19 at 19:30 Glucose (Glutose) 15 gm Q15M PRN PO DECREASED GLUCOSE; Start 01/10/19 at 19:30 Glucose (Glutose) 22.5 gm Q15M PRN PO DECREASED GLUCOSE; Start 01/10/19 at 19:30 Dextrose (D50w Syringe) 25 ml Q15M PRN IV DECREASED GLUCOSE; Start 01/10/19 at 19:30 Dextrose (D50w Syringe) 50 ml Q15M PRN IV DECREASED GLUCOSE; Start 01/10/19 at 19:30 Glucagon (Glucagen) 1 mg Q15M PRN IM DECREASED GLUCOSE; Start 01/10/19 at 19:30 Glucose (Glutose) 15 gm Q15M PRN BUCCAL DECREASED GLUCOSE; Start 01/10/19 at 19:30 Multivitamins Therapeutic (Theragran) 1 tab DAILY PO ; Start 01/12/19 at 09:00 Zinc Sulfate (Zinc Sulfate) 220 mg DAILY PO ; Start 01/12/19 at 09:00 Ascorbic Acid (Vitamin C) 250 mg DAILY PO ; Start 01/12/19 at 13:00 IVAN AKHTAR MD 01/11/19 1755: Assessment/Plan Assessment/Plan Assessment/Plan BLOOD GIVE NEBS AND LASIX FOR WHEEZING Result Diagram: 01/11/19 0820 01/11/19 0630 COOPER CARO Jan 11, 2019 12:20 IVAN AKHTAR MD Jan 11, 2019 17:55
[2019-01-11] MEDS: SOD FERRIC GLUC COMPLX 125 MG in SOD CHLORIDE 0.9% 100 ML IVPB SCH (12:30)
--- NOTE | 2019-01-11 13:35 | CONS ---
Assessment/Plan Assessment/Plan Hospital Course (Demo Recall) Tx to acute rehab, awake, looks comfortable, no fevers WBC 11.3 H&H 6.8 and 20.9 platelets 277 BUN 59 creatinine 2.25 Testicular ultrasound revealed right epididymitis no evidence of scrotal abscess or neoplasm Antimicrobials: Cancidas, doxycycline, Levaquin Allergy: Penicillin, sulfa Physical examination: Obese well-developed chronically ill-appearing - Citizen Of [place] man who is awake in no distress. Head atraumatic normocephalic sclera nonicteric. Neck is supple chest rise symmetrical breath sounds diminished bases. Heart: S1-S2. Abdomen obese soft bowel sounds present extremities without cyanosis Assessment: 1. S/p sepsis, present on admission 2. Pneumonia, resolving 3. 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 Advanced rheumatoid arthritis 5. Chronic atrial fibrillation 6. Diabetes 7. BPH 8. Bilateral groin fungal cellulitis 9. Acute on chronic anemia===> s/p EGD/colonoscopy 01/09/19 10. Right epididymitis Plan: Remains stable, DC Cancidas, continue topical nystatin, continue antibiotics to complete 2 weeks Consultation Date/Type/Reason Admit Date/Time Jan 10, 2019 at 17:45 Initial Consult Date Type of Consult id Date/Time of Note DATE: 01/11/19 TIME: 13:31 Exam/Review of Systems Exam Vitals Vital Signs Date Temp Pulse Resp B/P (MAP) Pulse Ox O2 O2 Flow FiO2 Time Delivery Rate 01/11/19 2.0 12:13 01/11/19 97.7 67 16 109/48 96 Nasal 10:03 (68) Cannula Intake and Output 01/10/19 01/10/19 01/11/19 1515:00 23:00 07:00 IntakeIntake Total 850 ml 100 ml OutputOutput Total 450 ml 800 ml BalanceBalance 400 ml -700 ml Results Result Diagram: 01/11/19 0820 01/11/19 0630 Results 24hrs Laboratory Tests Test 01/10/19 19:00 01/10/19 21:16 01/11/19 06:30 01/11/19 07:44 Urine Color YELLOW Urine Clarity SLIGHTLY CLOUDY A Urine pH 5.0 Urine Specific 1.014 [place] Urine Ketones NEGATIVE Urine Nitrite NEGATIVE Urine Bilirubin NEGATIVE Urine NEGATIVE Urobilinogen Urine Leukocyte TRACE A Esterase Urine Microscopic 9 H RBC Urine Microscopic 3 WBC Urine Hemoglobin NEGATIVE Urine Glucose NEGATIVE Urine Total NEGATIVE Protein Bedside Glucose 154 69 L White Blood Count 11.3 H Red Blood Count 2.30 L Hemoglobin 6.8 *L Hematocrit 20.9 L Mean Corpuscular 90.9 Volume Mean Corpuscular 29.6 Hemoglobin Mean Corpuscular 32.5 Hemoglobin Concen t Red Cell 16.9 H Distribution Width Platelet Count 277 Mean Platelet 10.0 Volume Immature 1.200 H Granulocytes % Neutrophils % 74.2 Lymphocytes % 13.4 L Monocytes % 10.1 Eosinophils % 1.0 Basophils % 0.1 Nucleated Red 0.4 H Blood Cells % Immature 0.130 H Granulocytes # Neutrophils # 8.4 H Lymphocytes # 1.5 Monocytes # 1.1 H Eosinophils # 0.1 Basophils # 0.0 Nucleated Red 0.0 Blood Cells # Sodium Level 134 L Potassium Level 4.4 Chloride Level 104 Carbon Dioxide 20 L Level Anion Gap 10 Blood Urea 59 H Nitrogen Creatinine 2.25 H Est Glomerular Filtrat Rate mL/min Glucose Level 46 #*L Calcium Level 7.8 L Total Bilirubin 0.9 Direct Bilirubin 0.00 Indirect 0.9 Bilirubin Aspartate Amino 14 L Transf (AST/SGOT) Alanine 17 Aminotransferase (ALT/SGPT) Alkaline 71 Phosphatase Total Protein 5.2 L Albumin 2.5 L Globulin 2.70 Albumin/Globulin 0.92 Ratio Thyroid 2.630 Stimulating Hormone (TSH) Test 01/11/19 08:05 01/11/19 08:20 01/11/19 08:24 01/11/19 11:58 Bedside Glucose 81 108 118 Hemoglobin 6.9 *L Hematocrit 21.7 L Medications Medication Current Medications Docusate Sodium (Colace) 100 mg BID PO Last administered on 01/11/19at 08:54; Admin Dose 100 MG; Start 01/10/19 at 21:00 Senna (Senokot) 1 tab HS PO Last administered on 01/10/19at 21:21; Admin Dose 1 TAB; Start 01/10/19 at 21:00 Lactulose (Enulose) 20 gm DAILY PRN PO CONSTIPATION; Start 01/10/19 at 19:00 Acetaminophen (Tylenol Tab) 650 mg Q4H PRN PO PAIN; Start 01/10/19 at 19:00 [facility] This patient ramirez... PRN PRN XX WOUND CARE; Start 01/10/19 at 19:00 Diagnostic Test (Pha) (Accu-Chek) 1 ea AC MEALS AND BEDTIME XX Last adm inistered on 01/11/19 12:21; Admin Dose 1 EA; Start 01/10/19 at 21:00 Diagnostic Test (Pha) (Accu-Chek) 1 ea 02 XX ; Start 01/11/19 at 02:00 Albuterol/ Ipratropium (Duoneb) 3 ml Q2H RESP THERAPY PRN HHN SHORTNESS OF BREATH Last administered on 01/11/19 09:39; Admin Dose 3 ML; Start 01/10/19 at 19:30 Atorvastatin Calcium (Lipitor) 40 mg QHS PO Last administered on 01/10/19 21:29; Admin Dose 40 MG; Start 01/10/19 at 21:00 Bisacodyl (Dulcolax) 10 mg BID PRN PO CONSTIPATION; Start 01/10/19 at 19:30 Caspofungin 50 mg/ Sodium Chloride 250 ml @ 250 mls/hr Q24H IVPB ; Start 01/11/19 at 15:30 Doxycycline Hyclate 100 mg/ Sodium Chloride 250 ml @ 250 mls/hr Q12 IVPB Last administered on 01/11/19 09:04; Admin Dose 250 MLS/HR; Start 01/10/19 at 21:00 Ferrous Sulfate (Ferrous Sulfate (Ec)) 325 mg BID PO Last administered on 01/11/19 08:54; Admin Dose 325 MG; Start 01/10/19 at 21:00 Folic Acid (Folic Acid) 1 mg DAILY PO Last administered on 01/11/19 08:54; Admin Dose 1 MG; Start 01/11/19 at 09:00 Acetaminophen/ Hydrocodone Bitart ([place] (5/325)) 1 tab Q6H PRN PO MODERATE PAIN LEVEL 4-6 Last administered on 01/11/19 11:36; Admin Dose 1 TAB; Start 01/10/19 at 19:30 Insulin Aspart (Novolog Insulin Pen) NOVOLOG *MILD* ALGORITHM WITH MEALS BEDTIME SC ; Start 01/10/19 at 21:00 Insulin Glargine (Lantus) 10 units QHS SC Last administered on 01/10/19 21:59; Admin Dose 10 UNITS; Start 01/10/19 at 21:00 Latanoprost (Xalatan) 1 drop HS BOTH EYES Last administered on 01/10/19 21:28; Admin Dose 1 DROP; Start 01/10/19 at 21:00 Levofloxacin/ Dextrose 100 ml @ 100 mls/hr Q48H IVPB Last administered on 01/11/19 08:55; Admin Dose 100 MLS/HR; Start 01/11/19 at 09:00 Levothyroxine Sodium (Synthroid) 125 mcg BEFORE BREAKFAST PO Last administered on 01/11/19 06:04; Admin Dose 125 MCG; Start 01/11/19 at 07:00 Metoprolol Tartrate (Lopressor) 50 mg BID PO Last administered on 01/11/19 08:54; Admin Dose 50 MG; Start 01/10/19 at 21:00 Nitroglycerin (Nitroglycerin (Sl Tab) 0.4 Mg) 0.4 tab Q5M PRN SL CHEST PAIN; Start 01/10/19 at 19:30 Nystatin/ Triamcinolone Acetonide (Mycolog Cr) 1 applic BID TOP Last administered on 01/11/19 08:53; Admin Dose 1 APPLIC; Start 01/10/19 at 21:00 Nystatin (Nystatin Powder) 1 applic BID TOP Last administered on 01/11/19 08:53; Admin Dose 1 APPLIC; Start 01/10/19 at 21:00 Pantoprazole (Protonix Tab) 40 mg DAILY@06 PO Last administered on 01/11/19 06:04; Admin Dose 40 MG; Start 01/11/19 at 06:00 Polyethylene Glycol (Miralax) 17 gm DAILY PO Last administered on 01/11/19 08:54; Admin Dose 17 GM; Start 01/11/19 at 09:00 Pregabalin (Lyrica) 25 mg TID PO Last administered on 01/11/19 12:30; Admin Dose 25 MG; Start 01/10/19 at 21:00 IV Flush (NS 3 ml) 3 ml PER PROTOCOL IV ; Start 01/10/19 at 19:30 Terazosin HCl (Hytrin) 10 mg HS PO Last administered on 01/10/19 21:30; Admin Dose 10 MG; Start 01/10/19 at 21:00 Ferric Sodium Gluconate Complex 125 mg/Sodium Chloride 110 ml @ 110 mls/hr DAILY@1300 IVPB Last administered on 01/11/19at 12:30; Admin Dose 110 MLS/HR; Start 01/11/19 at 13:00; Stop 01/14/19 at 13:59 Miscellaneous Information 1 ea NOTE XX ; Start 01/10/19 at 19:30 Glucose (Glutose) 15 gm Q15M PRN PO DECREASED GLUCOSE; Start 01/10/19 at 19:30 Glucose (Glutose) 22.5 gm Q15M PRN PO DECREASED GLUCOSE; Start 01/10/19 at 19:30 Dextrose (D50w Syringe) 25 ml Q15M PRN IV DECREASED GLUCOSE; Start 01/10/19 at 19:30 Dextrose (D50w Syringe) 50 ml Q15M PRN IV DECREASED GLUCOSE; Start 01/10/19 at 19:30 Glucagon (Glucagen) 1 mg Q15M PRN IM DECREASED GLUCOSE; Start 01/10/19 at 19:30 Glucose (Glutose) 15 gm Q15M PRN BUCCAL DECREASED GLUCOSE; Start 01/10/19 at 19:30 Multivitamins Therapeutic (Theragran) 1 tab DAILY PO ; Start 01/12/19 at 09:00 Zinc Sulfate (Zinc Sulfate) 220 mg DAILY PO ; Start 01/12/19 at 09:00 Ascorbic Acid (Vitamin C) 250 mg DAILY PO ; Start 01/12/19 at 13:00 LUCIAN HARKINS NP Jan 11, 2019 13:35
[2019-01-11] MEDS ORDERED: CASPOFUNGIN 50 MG in SOD CHLORIDE 0.9% 250 ML IVPB SCH (15:30)
--- NOTE | 2019-01-11 15:51 | CONS ---
Consult Date/Type/Reason Admit Date/Time Jan 10, 2019 at 17:45 Initial Consult Date Date/Time of Note DATE: 01/11/19 TIME: 15:49 Subjective Pt with reduced H/H - blood tx now - BP stable - will monitor now. ROS: No fever, no chills, no nausea, no vomiting, no diarrhea/constipation No recent weight changes No chest pain, no PND, no orthopnea - mild SOB No dizziness, blurred vision No thirst, no heat or cold intolerance Objective Vitals Vital Signs Date Temp Pulse Resp B/P (MAP) Pulse Ox O2 O2 Flow FiO2 Time Delivery Rate 01/11/19 97.6 66 16 131/58 99 Nasal 14:15 (82) Cannula 01/11/19 2.0 12:13 Intake and Output 01/10/19 01/10/19 01/11/19 1414:59 22:59 06:59 IntakeIntake Total 600 ml 350 ml OutputOutput Total 450 ml 800 ml BalanceBalance 150 ml -450 ml Exam General: WN/WD/NAD, AOx 2-3 HEENT: Unicetric/atraumatic/EOMI (follows commands) NECK: JVD elevated, no thyromegaly Lymph: no lymphadenopathy HEART: regular with no S3, II/ systolic murmur at apex, PMI L LUNGS: Coarse sounds ABD: soft, NT, ND, +BS : Intact Neuro: non focal SKIN: chronic changes EXT: trace edema Results/Medications Result Diagram: 01/11/19 0820 01/11/19 0630 Results 24 hrs Laboratory Tests Test 01/10/19 19:00 01/10/19 21:16 01/11/19 06:30 01/11/19 07:44 Urine Color YELLOW Urine Clarity SLIGHTLY CLOUDY A Urine pH 5.0 Urine Specific 1.014 [place] Urine Ketones NEGATIVE Urine Nitrite NEGATIVE Urine Bilirubin NEGATIVE Urine NEGATIVE Urobilinogen Urine Leukocyte TRACE A Esterase Urine Microscopic 9 H RBC Urine Microscopic 3 WBC Urine Hemoglobin NEGATIVE Urine Glucose NEGATIVE Urine Total NEGATIVE Protein Bedside Glucose 154 69 L White Blood Count 11.3 H Red Blood Count 2.30 L Hemoglobin 6.8 *L Hematocrit 20.9 L Mean Corpuscular 90.9 Volume Mean Corpuscular 29.6 Hemoglobin Mean Corpuscular 32.5 Hemoglobin Concen t Red Cell 16.9 H Distribution Width Platelet Count 277 Mean Platelet 10.0 Volume Immature 1.200 H Granulocytes % Neutrophils % 74.2 Lymphocytes % 13.4 L Monocytes % 10.1 Eosinophils % 1.0 Basophils % 0.1 Nucleated Red 0.4 H Blood Cells % Immature 0.130 H Granulocytes # Neutrophils # 8.4 H Lymphocytes # 1.5 Monocytes # 1.1 H Eosinophils # 0.1 Basophils # 0.0 Nucleated Red 0.0 Blood Cells # Sodium Level 134 L Potassium Level 4.4 Chloride Level 104 Carbon Dioxide 20 L Level Anion Gap 10 Blood Urea 59 H Nitrogen Creatinine 2.25 H Est Glomerular Filtrat Rate mL/min Glucose Level 46 #*L Calcium Level 7.8 L Total Bilirubin 0.9 Direct Bilirubin 0.00 Indirect 0.9 Bilirubin Aspartate Amino 14 L Transf (AST/SGOT) Alanine 17 Aminotransferase (ALT/SGPT) Alkaline 71 Phosphatase Total Protein 5.2 L Albumin 2.5 L Globulin 2.70 Albumin/Globulin 0.92 Ratio Thyroid 2.630 Stimulating Hormone (TSH) Test 01/11/19 08:05 01/11/19 08:20 01/11/19 08:24 01/11/19 11:58 Bedside Glucose 81 108 118 Hemoglobin 6.9 *L Hematocrit 21.7 L Home Meds Active Scripts Apixaban* (Eliquis*) 5 Mg Tablet, 2.5 MG PO BID for 30 Days, TAB Prov:IVAN AKHTAR MD 12/20/18 Metoprolol Tartrate* (Lopressor*) 50 Mg Tab, 50 MG PO BID for 30 Days, TAB Prov:COOPER CARO 12/20/18 Reported Medications Furosemide* (Lasix*) 20 Mg Tablet, 20 MG PO BID, TAB 01/05/19 Polyethylene Glycol* (Miralax*) 17 Gm Powd.pack, 17 GM PO DAILY, #30 PACKET 12/15/18 Nifedipine* (Nifedipine ER*) 60 Mg Tablet.sa, 60 MG PO DAILY, TAB.SA 12/15/18 Bisacodyl* (Bisacodyl*) 5 Mg Tablet.dr, 10 MG PO BID PRN for CONSTIPATION, TAB 12/15/18 Pregabalin* (Lyrica*) 25 Mg Capsule, 25 MG PO TID, CAP 12/15/18 Bimatoprost* (Lumigan*) 0.01%-5 Ml Opht Drops, 1 DROP BOTH EYES HS, EA 03/02/18 Cetirizine Hcl* (Cetirizine Hcl*) 10 Mg Tablet, 10 MG PO DAILY, #30 TAB 03/02/18 Insulin Glargine* (Lantus*) 100 Unit/Ml Soln, 10 UNIT SC QHS, #1 VIAL 03/02/18 Ergocalciferol (Vitamin D2) (VITAMIN D2) 2,000 Unit Tablet, 2000 UNIT PO DAILY, TAB 03/02/18 Famotidine* (Famotidine*) 20 Mg Tablet, 20 MG PO DAILY, #30 TAB 03/02/18 Ferrous Sulfate* (Ferrous Sulfate*) 325 Mg Tabec, 325 MG PO BID, TAB 03/02/18 Nitroglycerin* (Nitrostat*) 0.4 Mg Tab.subl, 0.4 MG SL Q5MIN PRN for CHEST PAIN, BOTTLE 03/02/18 Terazosin Hcl* (Terazosin Hcl*) 10 Mg Capsule, 10 MG PO HS, CAP 03/02/18 Levothyroxine Sodium* (Levoxyl*) 125 Mcg Tablet, 125 MCG PO BEFORE BREAKFAST, #30 TAB 03/02/18 Allopurinol* (Allopurinol*) 100 Mg Tablet, 100 MG PO BID, TAB 03/02/18 Atorvastatin* (Atorvastatin*) 40 Mg Tablet, 40 MG PO QHS, #30 TAB 03/02/18 Folic Acid* (Folic Acid*) 1 Mg Tablet, 1 MG PO DAILY, TAB 03/02/18 Discontinued Scripts Methylprednisolone* (Medrol* DOSE PACK) 4 Mg/Dose-Pack Tab.ds.pk, 4 MG PO . DIRECTED for 7 Days, PACKET Prov:IVAN AKHTAR MD 12/20/18 Doxycycline Monohydrate (Doxycycline Monohydrate) 100 Mg Capsule, 100 MG PO BID for 5 Days, CAP Prov:COOPER CARO 12/20/18 Levofloxacin* (Levaquin*) 500 Mg Tablet, 500 MG PO DAILY for 5 Days, TAB Prov:COOPER CARO 12/20/18 Medications Current Medications Docusate Sodium (Colace) 100 mg BID PO Last administered on 01/11/19at 08:54; Admin Dose 100 MG; Start 01/10/19 at 21:00 Senna (Senokot) 1 tab HS PO Last administered on 01/10/19at 21:21; Admin Dose 1 TAB; Start 01/10/19 at 21:00 Lactulose (Enulose) 20 gm DAILY PRN PO CONSTIPATION; Start 01/10/19 at 19:00 Acetaminophen (Tylenol Tab) 650 mg Q4H PRN PO PAIN; Start 01/10/19 at 19:00 [facility]isc[facility] This patient ramirez... PRN PRN XX WOUND CARE; Start 01/10/19 at 19:00 Diagnostic Test (Pha) (Accu-Chek) 1 ea AC MEALS AND BEDTIME XX Last administered on 01/11/19at 12:21; Admin Dose 1 EA; Start 01/10/19 at 21:00 Diagnostic Test (Pha) (Accu-Chek) 1 ea 02 XX ; Start 01/11/19 at 02:00 Albuterol/ Ipratropium (Duoneb) 3 ml Q2H RESP THERAPY PRN HHN SHORTNESS OF BR EATH Last administered on 01/11/19at 09:39; Admin Dose 3 ML; Start 01/10/19 at 19:30 Atorvastatin Calcium (Lipitor) 40 mg QHS PO Last administered on 01/10/19at 21:29; Admin Dose 40 MG; Start 01/10/19 at 21:00 Bisacodyl (Dulcolax) 10 mg BID PRN PO CONSTIPATION; Start 01/10/19 at 19:30 Ferrous Sulfate (Ferrous Sulfate (Ec)) 325 mg BID PO Last administered on 01/11/19 08:54; Admin Dose 325 MG; Start 01/10/19 at 21:00 Folic Acid (Folic Acid) 1 mg DAILY PO Last administered on 01/11/19at 08:54; Ad min Dose 1 MG; Start 01/11/19 at 09:00 Acetaminophen/ Hydrocodone Bitart ([place] (5/325)) 1 tab Q6H PRN PO MODERATE PAIN LEVEL 4-6 Last administered on 01/11/19at 11:36; Admin Dose 1 TAB; Start 01/10/19 at 19:30 Insulin Aspart (Novolog Insulin Pen) NOVOLOG *MILD* ALGORITHM WITH MEALS BEDTIME SC ; Start 01/10/19 at 21:00 Insulin Glargine (Lantus) 10 units QHS SC Last administered on 01/10/19 21:59; Admin Dose 10 UNITS; Start 01/10/19 at 21:00 Latanoprost (Xalatan) 1 drop HS BOTH EYES Last administered on 01/10/19 21:28; Admin Dose 1 DROP; Start 01/10/19 at 21:00 Levothyroxine Sodium (Synthroid) 125 mcg BEFORE BREAKFAST PO Last administered on 01/11/19 06:04; Admin Dose 125 MCG; Start 01/11/19 at 07:00 Metoprolol Tartrate (Lopressor) 50 mg BID PO Last administered on 01/11/19 08:54; Admin Dose 50 MG; Start 01/10/19 at 21:00 Nitroglycerin (Nitroglycerin (Sl Tab) 0.4 Mg) 0.4 tab Q5M PRN SL CHEST PAIN; Start 01/10/19 at 19:30 Nystatin/ Triamcinolone Acetonide (Mycolog Cr) 1 applic BID TOP Last administered on 01/11/19 08:53; Admin Dose 1 APPLIC; Start 01/10/19 at 21:00 Nystatin (Nystatin Powder) 1 applic BID TOP Last administered on 01/11/19 08:53; Admin Dose 1 APPLIC; Start 01/10/19 at 21:00 Pantoprazole (Protonix Tab) 40 mg DAILY@06 PO Last administered on 01/11/19 0 6:04; Admin Dose 40 MG; Start 01/11/19 at 06:00 Polyethylene Glycol (Miralax) 17 gm DAILY PO Last administered on 01/11/19 08:54; Admin Dose 17 GM; Start 01/11/19 at 09:00 Pregabalin (Lyrica) 25 mg TID PO Last administered on 01/11/19 12:30; Admin Dose 25 MG; Start 01/10/19 at 21:00 IV Flush (NS 3 ml) 3 ml PER PROTOCOL IV ; Start 01/10/19 at 19:30 Terazosin HCl (Hytrin) 10 mg HS PO Last administered on 01/10/19 21:30; Admin Dose 10 MG; Start 01/10/19 at 21:00 Ferric Sodium Gluconate Complex 125 mg/Sodium Chloride 110 ml @ 110 mls/hr DAILY@1300 IVPB Last administered on 01/11/19 12:30; Admin Dose 110 MLS/HR; Start 01/11/19 at 13:00; Stop 01/14/19 at 13:59 Miscellaneous Information 1 ea NOTE XX ; Start 01/10/19 at 19:30 Glucose (Glutose) 15 gm Q15M PRN PO DECREASED GLUCOSE; Start 01/10/19 at 19:30 Glucose (Glutose) 22.5 gm Q15M PRN PO DECREASED GLUCOSE; Start 01/10/19 at 19:30 Dextrose (D50w Syringe) 25 ml Q15M PRN IV DECREASED GLUCOSE; Start 01/10/19 at 19:30 Dextrose (D50w Syringe) 50 ml Q15M PRN IV DECREASED GLUCOSE; Start 01/10/19 at 19:30 Glucagon (Glucagen) 1 mg Q15M PRN IM DECREASED GLUCOSE; Start 01/10/19 at 19:30 Glucose (Glutose) 15 gm Q15M PRN BUCCAL DECREASED GLUCOSE; Start 01/10/19 at 19:30 Multivitamins Therapeutic (Theragran) 1 tab DAILY PO ; Start 01/12/19 at 09:00 Zinc Sulfate (Zinc Sulfate) 220 mg DAILY PO ; Start 01/12/19 at 09:00 Ascorbic Acid (Vitamin C) 250 mg DAILY PO ; Start 01/12/19 at 13:00 Levofloxacin (Levaquin) 250 mg DAILY@06 PO ; Start 01/12/19 at 06:00 Doxycycline Hyclate (Vibramycin) 100 mg BID PO ; Start 01/11/19 at 21:00 Assessment/Plan Hospital Course (Demo Recall) 1. Atrial fibrillation, currently rate controlled.-off anticoagulation with low H/H - rate controlled 2. Possible congestive heart failure by chest x-ray, which will be diastolic, acute on chronic by most recent echo with an EF of 60%- tolerating blood Tx so far. 3. Tricuspid regurgitation, moderate by most recent echo. 4. Acute on chronic renal failure - Cr at 2.25 - will monitor clinically now. 5. Possible pneumonia- on anti-Bx. 6. History of coronary artery disease, status post coronary artery bypass graft surgery. 7. Dyslipidemia. 8. Rheumatoid arthritis. 9. Groin cellulitis. 10. Anemia-worsening requiring transfusions PRBC's.Now post-op s/p endoscopy ? findings - blood tX now. 11. Diabetes mellitus. LOU PATINO MD Jan 11, 2019 15:51
[2019-01-11] MEDS ORDERED: ALBUTEROL/IPRATROPIUM (NEB) 3 ML AMP HHN STA (17:53)
[2019-01-11] MEDS ORDERED: FUROSEMIDE 20 MG INJ IV ONE (18:00)
[2019-01-11] MEDS: ALBUTEROL/IPRATROPIUM (NEB) 3 ML AMP HHN SCH (20:26)
[2019-01-11] MEDS: LATANOPROST 0.005% 2.5 ML OPH BOTH EYES SCH (20:42)
[2019-01-11] MEDS: SENNA TAB PO SCH (20:44)
[2019-01-11] MEDS: ATORVASTATIN 40 MG TAB PO SCH (20:44)
[2019-01-11] MEDS: DOXYCYCLINE 100 MG TAB PO SCH (20:45)
[2019-01-11] MEDS: BALSAM PERU/CASTOR OIL 60 GM TUBE TOP SCH (21:29)
[2019-01-11] MEDS: TERAZOSIN 5 MG CAP PO SCH (21:54)
[2019-01-12 01:43] VITALS: BP 133/63; PULSE 77; RESP 20
[2019-01-12] MEDS: ALBUTEROL/IPRATROPIUM (NEB) 3 ML AMP HHN SCH ×4 (01:43→20:10)
[2019-01-12] MEDS: ACCU-CHEK XX SCH ×5 (02:00→20:42)
[2019-01-12] MEDS ORDERED: LEVOFLOXACIN 250 MG TAB PO SCH (06:00)
[2019-01-12] MEDS: LEVOTHYROXINE 125 MCG TAB PO SCH (06:17)
[2019-01-12] MEDS: PANTOPRAZOLE (EC) 40 MG TAB PO SCH (06:17)
[2019-01-12] MEDS: INSULIN ASPART [NOVOLOG] 3 ML PEN SC SCH ×4 (07:35→20:41)
[2019-01-12] MEDS: MULTIVITAMINS THERAPEUTIC TAB PO SCH (09:00)
[2019-01-12] MEDS: ZINC SULFATE 220 MG CAP PO SCH (09:00)
[2019-01-12] MEDS: DOCUSATE SODIUM 100 MG CAP PO SCH ×2 (09:00→20:40)
[2019-01-12] MEDS: PREGABALIN 25 MG CAP PO SCH ×3 (09:00→20:39)
[2019-01-12] MEDS: FOLIC ACID 1 MG TAB PO SCH (09:00)
[2019-01-12] MEDS: DOXYCYCLINE 100 MG TAB PO SCH ×2 (09:00→20:40)
[2019-01-12] MEDS: METOPROLOL 50 MG TAB PO SCH ×2 (09:00→20:40)
[2019-01-12] MEDS: FERROUS SULFATE (EC) 325 MG TAB PO SCH ×2 (09:00→20:41)
[2019-01-12] MEDS: NYSTATIN 30 GM POWDER BTL TOP SCH ×2 (09:01→20:41)
[2019-01-12] MEDS: POLYETHYLENE GLYCOL 17 GM PACKET PO SCH (09:01)
[2019-01-12] MEDS: BALSAM PERU/CASTOR OIL 60 GM TUBE TOP SCH ×2 (09:01→20:42)
[2019-01-12] MEDS: NYSTATIN/TRIAMCINOLONE 15 GM CR TOP SCH ×2 (09:01→20:41)
--- NOTE | 2019-01-12 10:10 | PN ---
COOPER LARSEN 01/12/19 1010: Date/Time of Note Date/Time of Note DATE: 01/12/19 TIME: 10:09 Assessment/Plan VTE Prophylaxis Risk score (from [facility] [place])>0 risk: 7 SCD applied (from [facility] [place]): Yes Pharmacological prophylaxis: NA/contraindicated Pharm contraindication: anticoag not tolerated Lines/Catheters IV Catheter Type (from [facility]): [place] Urinary Cath still in place: Yes Reason Cath still needed: urinary retention Assessment/Plan Hospital Course 1. Recent sepsis, SOB, weakness. Pt had recent bilateral pneumonia. 2. COPD, on oxygen at home 3. Acute on chronic renal failure likely secondary to sepsis 4. Hypertension. 5. Hyperlipidemia. 6. Hypothyroidism. 7. Normocytic normochromic chronic anemia with recent hemoglobin drop in HG to 7.0, to day 6.9. S/p blood transfusion 8. Bilateral groin cellulitis more likely associated with mateus, patches in groin and axilla bilaterally. Back rash 9. History of rheumatoid arthritis with joint deformities. 10. Diabetes type 2. 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 Peripheral vascular disease. 13. Chronic a.fib 14. right arm edema Assessment/Plan -US right arm is negative -DVT proph. unable to tolerate Eliquiz, SCD -GI prophylaxis Faotidine BID -pain control -blood transfusion -c/w home meds -nyst cream BID axilla -supp. oxygen Result Diagram: 01/11/19 0820 01/11/19 0630 Results 24hrs Laboratory Tests Test 01/11/19 11:58 01/11/19 17:34 01/11/19 20:36 01/12/19 07:49 Bedside Glucose 118 136 165 119 Subjective 24 Hr Interval Summary Musculoskeletal: bone/joint pain Exam/Review of Systems Exam Vitals Vital Signs Date Temp Pulse Resp B/P (MAP) Pulse Ox O2 O2 Flow FiO2 Time Delivery Rate 01/12/19 82 18 97 Nasal 2.0 08:22 Cannula 01/12/19 97.8 133/63 01:43 (86) Intake and Output 01/11/19 01/11/19 01/12/19 1515:00 23:00 07:00 IntakeIntake Total 460 ml 1050 ml 120 ml OutputOutput Total 375 ml 450 ml 1700 ml BalanceBalance 85 ml 600 ml -1580 ml Constitutional: alert, oriented Head: normocephalic Eyes: nl conjunctiva Respiratory: normal air movement, diminished breath sounds Cardiovascular: regular rate and rhythm Gastrointestinal: soft Musculoskeletal: joint tenderness Results Result Diagram: 01/11/19 0820 01/11/19 0630 Results 24hrs Laboratory Tests Test 01/11/19 11:58 01/11/19 17:34 01/11/19 20:36 01/12/19 07:49 Bedside Glucose 118 136 165 119 Medications Medication Current Medications Docusate Sodium (Colace) 100 mg BID PO Last administered on 01/12/19 09:00; Admin Dose 100 MG; Start 01/10/19 at 21:00 Senna (Senokot) 1 tab HS PO Last administered on 01/11/19 20:44; Admin Dose 1 TAB; Start 01/10/19 at 21:00 Lactulose (Enulose) 20 gm DAILY PRN PO CONSTIPATION; Start 01/10/19 at 19:00 Acetaminophen (Tylenol Tab) 650 mg Q4H PRN PO PAIN; Start 01/10/19 at 19:00 Miscellaneous Information (Pending [facility] Order For Wound Care) This patient ramirez... PRN PRN XX WOUND CARE; Start 01/10/19 at 19:00 Diagnostic Test (Pha) (Accu-Chek) 1 ea AC MEALS AND BEDTIME XX Last administered on 01/12/19at 07:52; Admin Dose 1 EA; Start 01/10/19 at 21:00 Diagnostic Test (Pha) (Accu-Chek) 1 ea 02 XX ; Start 01/11/19 at 02:00 Albuterol/ Ipratropium (Duoneb) 3 ml Q2H RESP THERAPY PRN HHN SHORTNESS OF BREATH Last administered on 01/11/19 09:39; Admin Dose 3 ML; Start 01/10/19 at 19:30 Atorvastatin Calcium (Lipitor) 40 mg QHS PO Last administered on 01/11/19 20:44; Admin Dose 40 MG; Start 01/10/19 at 21:00 Bisacodyl (Dulcolax) 10 mg BID PRN PO CONSTIPATION; Start 01/10/19 at 19:30 Ferrous Sulfate (Ferrous Sulfate (Ec)) 325 mg BID PO Last administered on 01/12/19at 09:00; Admin Dose 325 MG; Start 01/10/19 at 21:00 Folic Acid (Folic Acid) 1 mg DAILY PO Last administered on 01/12/19 09:00; Admin Dose 1 MG; Start 01/11/19 at 09:00 Acetaminophen/ Hydrocodone Bitart ([place] (5/325)) 1 tab Q6H PRN PO MODERATE PAIN LEVEL 4-6 Last administered on 01/11/19 20:47; Admin Dose 1 TAB; Start 01/10/19 at 19:30 Insulin Aspart (Novolog Insulin Pen) NOVOLOG *MILD* ALGORITHM WITH MEALS BEDTIME SC ; Start 01/10/19 at 21:00 Insulin Glargine (Lantus) 10 units QHS SC Last administered on 01/10/19 21:59; Admin Dose 10 UNITS; Start 01/10/19 at 21:00; Status Hold Latanoprost (Xalatan) 1 drop HS BOTH EYES Last administered on 01/11/19 20:42; Admin Dose 1 DROP; Start 01/10/19 at 21:00 Levothyroxine Sodium (Synthroid) 125 mcg BEFORE BREAKFAST PO Last administered on 01/12/19 06:17; Admin Dose 125 MCG; Start 01/11/19 at 07:00 Metoprolol Tartrate (Lopressor) 50 mg BID PO Last administered on 01/12/19 09:00; Admin Dose 50 MG; Start 01/10/19 at 21:00 Nitroglycerin (Nitroglycerin (Sl Tab) 0.4 Mg) 0.4 tab Q5M PRN SL CHEST PAIN; Start 01/10/19 at 19:30 Nystatin/ Triamcinolone Acetonide (Mycolog Cr) 1 applic BID TOP Last administered on 01/12/19 09:01; Admin Dose 1 APPLIC; Start 01/10/19 at 21:00 Nystatin (Nystatin Powder) 1 applic BID TOP Last administered on 01/12/19 09:01; Admin Dose 1 APPLIC; Start 01/10/19 at 21:00 Pantoprazole (Protonix Tab) 40 mg DAILY@06 PO Last administered on 01/12/19 06:17; Admin Dose 40 MG; Start 01/11/19 at 06:00 Polyethylene Glycol (Miralax) 17 gm DAILY PO Last administered on 01/12/19 09:01; Admin Dose 17 GM; Start 01/11/19 at 09:00 Pregabalin (Lyrica) 25 mg TID PO Last administered on 01/12/19at 09:00; Admin Dose 25 MG; Start 01/10/19 at 21:00 IV Flush (NS 3 ml) 3 ml PER PROTOCOL IV ; Start 01/10/19 at 19:30 Terazosin HCl (Hytrin) 10 mg HS PO Last administered on 01/11/19at 21:54; Admin Dose 10 MG; Start 01/10/19 at 21:00 Ferric Sodium Gluconate Complex 125 mg/Sodium Chloride 110 ml @ 110 mls/hr DAILY@1300 IVPB Last administered on 01/11/19at 12:30; Admin Dose 110 MLS/HR; Start 01/11/19 at 13:00; Stop 01/14/19 at 13:59 Miscellaneous Information 1 ea NOTE XX ; Start 01/10/19 at 19:30 Glucose (Glutose) 15 gm Q15M PRN PO DECREASED GLUCOSE; Start 01/10/19 at 19:30 Glucose (Glutose) 22.5 gm Q15M PRN PO DECREASED GLUCOSE; Start 01/10/19 at 19:30 Dextrose (D50w Syringe) 25 ml Q15M PRN IV DECREASED GLUCOSE; Start 01/10/19 at 19:30 Dextrose (D50w Syringe) 50 ml Q15M PRN IV DECREASED GLUCOSE; Start 01/10/19 at 19:30 Glucagon (Glucagen) 1 mg Q15M PRN IM DECREASED GLUCOSE; Start 01/10/19 at 19:30 Glucose (Glutose) 15 gm Q15M PRN BUCCAL DECREASED GLUCOSE; Start 01/10/19 at 19:30 Multivitamins Therapeutic (Theragran) 1 tab DAILY PO Last administered on 01/12/19at 09:00; Admin Dose 1 TAB; Start 01/12/19 at 09:00 Zinc Sulfate (Zinc Sulfate) 220 mg DAILY PO Last administered on 01/12/19at 09:00; Admin Dose 220 MG; Start 01/12/19 at 09:00 Ascorbic Acid (Vitamin C) 250 mg DAILY PO ; Start 01/12/19 at 13:00 Levofloxacin (Levaquin) 250 mg DAILY@06 PO Last administered on 01/12/19at 06:17; Admin Dose 250 MG; Start 01/12/19 at 06:00 Doxycycline Hyclate (Vibramycin) 100 mg BID PO Last administered on 01/12/19at 09:00; Admin Dose 100 MG; Start 01/11/19 at 21:00 Albuterol/ Ipratropium (Duoneb) 3 ml Q6H RESP THERAPY HHN Last administered on 01/12/19at 08:21; Admin Dose 3 ML; Start 01/11/19 at 20:00 IVAN AKHTAR MD 01/12/19 1454: Assessment/Plan Assessment/Plan Assessment/Plan seen and examined Result Diagram: 01/11/19 0820 01/11/19 0630 COOPER CARO Jan 12, 2019 10:10 IVAN AKHTAR MD Jan 12, 2019 14:54
--- NOTE | 2019-01-12 11:54 | CONS ---
Consult Date/Type/Reason Admit Date/Time Jan 10, 2019 at 17:45 Initial Consult Date Date/Time of Note DATE: 01/12/19 TIME: 11:53 Subjective NO acute events - pt s/p blood rX - responded - no CP - on meds now - pain control. ROS: No fever, no chills, no nausea, no vomiting, no diarrhea/constipation No recent weight changes No chest pain, no PND, no orthopnea - mild SOB No dizziness, blurred vision No thirst, no heat or cold intolerance Objective Vitals Vital Signs Date Temp Pulse Resp B/P (MAP) Pulse Ox O2 O2 Flow FiO2 Time Delivery Rate 01/12/19 82 18 97 Nasal 2.0 08:22 Cannula 01/12/19 97.8 133/63 01:43 (86) Intake and Output 01/11/19 01/11/19 01/12/19 1515:00 23:00 07:00 IntakeIntake Total 460 ml 1050 ml 120 ml OutputOutput Total 375 ml 450 ml 1700 ml BalanceBalance 85 ml 600 ml -1580 ml Exam General: WN/WD/NAD, AOx 2-3 HEENT: Unicetric/atraumatic/EOMI (follow commands) NECK: JVD elevated, no thyromegaly Lymph: no lymphadenopathy HEART: regular with no S3, II/ systolic murmur at apex LUNGS: Coarse sounds ABD: soft, NT, ND, +BS : Intact Neuro: non focal SKIN: chronic changes EXT: trace edema Results/Medications Result Diagram: 01/12/19 1042 01/11/19 0630 Results 24 hrs Laboratory Tests Test 01/11/19 11:58 01/11/19 17:34 01/11/19 20:36 01/12/19 07:49 Bedside Glucose 118 136 165 119 Test 01/12/19 10:42 01/12/19 11:46 White Blood Count 13.7 #H Red Blood Count 2.65 L Hemoglobin 7.8 L Hematocrit 23.9 L Mean Corpuscular 90.2 Volume Mean Corpuscular 29.4 Hemoglobin Mean Corpuscular 32.6 Hemoglobin Concent Red Cell 16.9 H Distribution Width Platelet Count 294 Mean Platelet Volume 10.2 Immature 1.200 H Granulocytes % Neutrophils % 78.6 H Lymphocytes % 10.7 L Monocytes % 9.0 Eosinophils % 0.4 Basophils % 0.1 Nucleated Red Blood 0.4 H Cells % Immature 0.170 H Granulocytes # Neutrophils # 10.7 H Lymphocytes # 1.5 Monocytes # 1.2 H Eosinophils # 0.1 Basophils # 0.0 Nucleated Red Blood 0.1 H Cells # Bedside Glucose 142 Home Meds Active Scripts Apixaban* (Eliquis*) 5 Mg Tablet, 2.5 MG PO BID for 30 Days, TAB Prov:IVAN AKHTAR MD 12/20/18 Metoprolol Tartrate* (Lopressor*) 50 Mg Tab, 50 MG PO BID for 30 Days, TAB Prov:COOPER CARO 12/20/18 Reported Medications Furosemide* (Lasix*) 20 Mg Tablet, 20 MG PO BID, TAB 01/05/19 Polyethylene Glycol* (Miralax*) 17 Gm Powd.pack, 17 GM PO DAILY, #30 PACKET 12/15/18 Nifedipine* (Nifedipine ER*) 60 Mg Tablet.sa, 60 MG PO DAILY, TAB.SA 12/15/18 Bisacodyl* (Bisacodyl*) 5 Mg Tablet.dr, 10 MG PO BID PRN for CONSTIPATION, TAB 12/15/18 Pregabalin* (Lyrica*) 25 Mg Capsule, 25 MG PO TID, CAP 12/15/18 Bimatoprost* (Lumigan*) 0.01%-5 Ml Opht Drops, 1 DROP BOTH EYES HS, EA 03/02/18 Cetirizine Hcl* (Cetirizine Hcl*) 10 Mg Tablet, 10 MG PO DAILY, #30 TAB 03/02/18 Insulin Glargine* (Lantus*) 100 Unit/Ml Soln, 10 UNIT SC QHS, #1 VIAL 03/02/18 Ergocalciferol (Vitamin D2) (VITAMIN D2) 2,000 Unit Tablet, 2000 UNIT PO DAILY, TAB 03/02/18 Famotidine* (Famotidine*) 20 Mg Tablet, 20 MG PO DAILY, #30 TAB 03/02/18 Ferrous Sulfate* (Ferrous Sulfate*) 325 Mg Tabec, 325 MG PO BID, TAB 03/02/18 Nitroglycerin* (Nitrostat*) 0.4 Mg Tab.subl, 0.4 MG SL Q5MIN PRN for CHEST PAIN, BOTTLE 03/02/18 Terazosin Hcl* (Terazosin Hcl*) 10 Mg Capsule, 10 MG PO HS, CAP 03/02/18 Levothyroxine Sodium* (Levoxyl*) 125 Mcg Tablet, 125 MCG PO BEFORE BREAKFAST, #30 TAB 03/02/18 Allopurinol* (Allopurinol*) 100 Mg Tablet, 100 MG PO BID, TAB 03/02/18 Atorvastatin* (Atorvastatin*) 40 Mg Tablet, 40 MG PO QHS, #30 TAB 03/02/18 Folic Acid* (Folic Acid*) 1 Mg Tablet, 1 MG PO DAILY, TAB 03/02/18 Discontinued Scripts Methylprednisolone* (Medrol* DOSE PACK) 4 Mg/Dose-Pack Tab.ds.pk, 4 MG PO . DIRECTED for 7 Days, PACKET Prov:IVAN AKHTAR MD 12/20/18 Doxycycline Monohydrate (Doxycycline Monohydrate) 100 Mg Capsule, 100 MG PO BID for 5 Days, CAP Prov:COOPER CARO 12/20/18 Levofloxacin* (Levaquin*) 500 Mg Tablet, 500 MG PO DAILY for 5 Days, TAB Prov:COOPER CARO 12/20/18 Medications Current Medications Docusate Sodium (Colace) 100 mg BID PO Last administered on 01/12/19at 09:00; Admin Dose 100 MG; Start 01/10/19 at 21:00 Senna (Senokot) 1 tab HS PO Last administered on 01/11/19at 20:44; Admin Dose 1 TAB; Start 01/10/19 at 21:00 Lactulose (Enulose) 20 gm DAILY PRN PO CONSTIPATION; Start 01/10/19 at 19:00 Acetaminophen (Tylenol Tab) 650 mg Q4H PRN PO PAIN; Start 01/10/19 at 19:00 Miscellaneous Information (Pending [facility] Order For Wound Care) This patient ramirez... PRN PRN XX WOUND CARE; Start 01/10/19 at 19:00 Diagnostic Test (Pha) (Accu-Chek) 1 ea AC MEALS AND BEDTIME XX Last administered on 01/12/19at 07:52; Admin Dose 1 EA; Start 01/10/19 at 21:00 Diagnostic Test (Pha) (Accu-Chek) 1 ea 02 XX ; Start 01/11/19 at 02:00 Albuterol/ Ipratropium (Duoneb) 3 ml Q2H RESP THERAPY PRN HHN SHORTNESS OF BREATH Last administered on 01/11/19 09:39; Admin Dose 3 ML; Start 01/10/19 at 19:30 Atorvastatin Calcium (Lipitor) 40 mg QHS PO Last administered on 01/11/19 20:44; Admin Dose 40 MG; Start 01/10/19 at 21:00 Bisacodyl (Dulcolax) 10 mg BID PRN PO CONSTIPATION; Start 01/10/19 at 19:30 Ferrous Sulfate (Ferrous Sulfate (Ec)) 325 mg BID PO Last administered on 01/12/19 09:00; Admin Dose 325 MG; Start 01/10/19 at 21:00 Folic Acid (Folic Acid) 1 mg DAILY PO Last administered on 01/12/19 09:00; Admin Dose 1 MG; Start 01/11/19 at 09:00 Acetaminophen/ Hydrocodone Bitart ([place] (5/325)) 1 tab Q6H PRN PO MODERATE PAIN LEVEL 4-6 Last administered on 01/11/19 20:47; Admin Dose 1 TAB; Start 01/10/19 at 19:30 Insulin Aspart (Novolog Insulin Pen) NOVOLOG *MILD* ALGORITHM WITH MEALS BEDTIME SC ; Start 01/10/19 at 21:00 Insulin Glargine (Lantus) 10 units QHS SC Last administered on 01/10/19 21:59; Admin Dose 10 UNITS; Start 01/10/19 at 21:00; Status Hold Latanoprost (Xalatan) 1 drop HS BOTH EYES Last administered on 01/11/19 20:42; Admin Dose 1 DROP; Start 01/10/19 at 21:00 Levothyroxine Sodium (Synthroid) 125 mcg BEFORE BREAKFAST PO Last administered on 01/12/19 06:17; Admin Dose 125 MCG; Start 01/11/19 at 07:00 Metoprolol Tartrate (Lopressor) 50 mg BID PO Last administered on 01/12/19 09:00; Admin Dose 50 MG; Start 01/10/19 at 21:00 Nitroglycerin (Nitroglycerin (Sl Tab) 0.4 Mg) 0.4 tab Q5M PRN SL CHEST PAIN; Start 01/10/19 at 19:30 Nystatin/ Triamcinolone Acetonide (Mycolog Cr) 1 applic BID TOP Last administered on 01/12/19at 09:01; Admin Dose 1 APPLIC; Start 01/10/19 at 21:00 Nystatin (Nystatin Powder) 1 applic BID TOP Last administered on 01/12/19at 09:01; Admin Dose 1 APPLIC; Start 01/10/19 at 21:00 Pantoprazole (Protonix Tab) 40 mg DAILY@06 PO Last administered on 01/12/19at 06:17; Admin Dose 40 MG; Start 01/11/19 at 06:00 Polyethylene Glycol (Miralax) 17 gm DAILY PO Last administered on 01/12/19at 09:01; Admin Dose 17 GM; Start 01/11/19 at 09:00 Pregabalin (Lyrica) 25 mg TID PO Last administered on 01/12/19at 09:00; Admin Dose 25 MG; Start 01/10/19 at 21:00 IV Flush (NS 3 ml) 3 ml PER PROTOCOL IV ; Start 01/10/19 at 19:30 Terazosin HCl (Hytrin) 10 mg HS PO Last administered on 01/11/19at 21:54; Admin Dose 10 MG; Start 01/10/19 at 21:00 Ferric Sodium Gluconate Complex 125 mg/Sodium Chloride 110 ml @ 110 mls/hr DAILY@1300 IVPB Last administered on 01/11/19at 12:30; Admin Dose 110 MLS/HR; Start 01/11/19 at 13:00; Stop 01/14/19 at 13:59 Miscellaneous Information 1 ea NOTE XX ; Start 01/10/19 at 19:30 Glucose (Glutose) 15 gm Q15M PRN PO DECREASED GLUCOSE; Start 01/10/19 at 19:30 Glucose (Glutose) 22.5 gm Q15M PRN PO DECREASED GLUCOSE; Start 01/10/19 at 19:30 Dextrose (D50w Syringe) 25 ml Q15M PRN IV DECREASED GLUCOSE; Start 01/10/19 at 19:30 Dextrose (D50w Syringe) 50 ml Q15M PRN IV DECREASED GLUCOSE; Start 01/10/19 at 19:30 Glucagon (Glucagen) 1 mg Q15M PRN IM DECREASED GLUCOSE; Start 01/10/19 at 19:30 Glucose (Glutose) 15 gm Q15M PRN BUCCAL DECREASED GLUCOSE; Start 01/10/19 at 19:30 Multivitamins Therapeutic (Theragran) 1 tab DAILY PO Last administered on 01/12/19at 09:00; Admin Dose 1 TAB; Start 01/12/19 at 09:00 Zinc Sulfate (Zinc Sulfate) 220 mg DAILY PO Last administered on 01/12/19at 09:00; Admin Dose 220 MG; Start 01/12/19 at 09:00 Ascorbic Acid (Vitamin C) 250 mg DAILY PO ; Start 01/12/19 at 13:00 Levofloxacin (Levaquin) 250 mg DAILY@06 PO Last administered on 01/12/19at 06:17; Admin Dose 250 MG; Start 01/12/19 at 06:00 Doxycycline Hyclate (Vibramycin) 100 mg BID PO Last administered on 01/12/19at 09:00; Admin Dose 100 MG; Start 01/11/19 at 21:00 Albuterol/ Ipratropium (Duoneb) 3 ml Q6H RESP THERAPY HHN Last administered on 01/12/19at 08:21; Admin Dose 3 ML; Start 01/11/19 at 20:00 Assessment/Plan Hospital Course (Demo Recall) 1. Atrial fibrillation, currently rate controlled.-off anticoagulation with low H/H - rate controlled - H/H better. 2. Possible congestive heart failure by chest x-ray, which will be diastolic, acute on chronic by most recent echo with an EF of 60%- tolerating blood Tx so far. 3. Tricuspid regurgitation, moderate by most recent echo. 4. Acute on chronic renal failure - Cr at 2.25 - will monitor clinically now. STABLE. 5. Possible pneumonia- on anti-Bx. 6. History of coronary artery disease, status post coronary artery bypass graft surgery. 7. Dyslipidemia. 8. Rheumatoid arthritis - on meds. 9. Groin cellulitis. 10. Anemia-worsening requiring transfusions PRBC's.Now post-op s/p endoscopy ? findings - blood tX now. S/p Blood Tx - responded appropriately. 11. Diabetes mellitus. LOU PATINO MD Jan 12, 2019 11:54
[2019-01-12] MEDS: HYDROCODONE/APAP (5/325) TAB PO PRN (13:18)
[2019-01-12] MEDS: SOD FERRIC GLUC COMPLX 125 MG in SOD CHLORIDE 0.9% 100 ML IVPB SCH (13:18)
[2019-01-12] MEDS: ASCORBIC ACID 250 MG TAB PO SCH (13:18)
--- NOTE | 2019-01-12 13:24 | CONS ---
Assessment/Plan Assessment/Plan Hospital Course (Demo Recall) No acute events over night, no fevers Antimicrobials: Doxycycline, Levaquin Allergy: Penicillin, sulfa Physical examination: Obese well-developed chronically ill-appearing - [place] man who is awake in no distress. Head atraumatic normocephalic sclera nonicteric. Neck is supple chest rise symmetrical breath sounds diminished bases. Heart: S1-S2. Abdomen obese soft bowel sounds present extremities without cyanosis Assessment: 1. S/p sepsis, present on admission 2. Pneumonia, resolving 3. 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 Advanced rheumatoid arthritis 5. Chronic atrial fibrillation 6. Diabetes 7. BPH 8. Bilateral groin fungal cellulitis 9. Acute on chronic anemia===> s/p EGD/colonoscopy 01/09/19 10. Right epididymitis Plan: Remains stable, continue antibiotics to complete 2 weeks Consultation Date/Type/Reason Admit Date/Time Jan 10, 2019 at 17:45 Initial Consult Date Type of Consult id Date/Time of Note DATE: 01/12/19 TIME: 13:23 Exam/Review of Systems Exam Vitals Vital Signs Date Temp Pulse Resp B/P (MAP) Pulse Ox O2 O2 Flow FiO2 Time Delivery Rate 01/12/19 82 18 97 Nasal 2.0 08:22 Cannula 01/12/19 97.8 133/63 01:43 (86) Intake and Output 01/11/19 01/11/19 01/12/19 1515:00 23:00 07:00 IntakeIntake Total 460 ml 1050 ml 120 ml OutputOutput Total 375 ml 450 ml 1700 ml BalanceBalance 85 ml 600 ml -1580 ml Results Result Diagram: 01/12/19 1042 01/11/19 0630 Results 24hrs Laboratory Tests Test 01/11/19 17:34 01/11/19 20:36 01/12/19 07:49 01/12/19 10:42 Bedside Glucose 136 165 119 White Blood Count 13.7 #H Red Blood Count 2.65 L Hemoglobin 7.8 L Hematocrit 23.9 L Mean Corpuscular 90.2 Volume Mean Corpuscular 29.4 Hemoglobin Mean Corpuscular 32.6 Hemoglobin Concent Red Cell 16.9 H Distribution Width Platelet Count 294 Mean Platelet Volume 10.2 Immature 1.200 H Granulocytes % Neutrophils % 78.6 H Lymphocytes % 10.7 L Monocytes % 9.0 Eosinophils % 0.4 Basophils % 0.1 Nucleated Red Blood 0.4 H Cells % Immature 0.170 H Granulocytes # Neutrophils # 10.7 H Lymphocytes # 1.5 Monocytes # 1.2 H Eosinophils # 0.1 Basophils # 0.0 Nucleated Red Blood 0.1 H Cells # Test 01/12/19 11:46 Bedside Glucose 142 Medications Medication Current Medications Docusate Sodium (Colace) 100 mg BID PO Last administered on 01/12/19 09:00; Admin Dose 100 MG; Start 01/10/19 at 21:00 Senna (Senokot) 1 tab HS PO Last administered on 01/11/19 20:44; Admin Dose 1 TAB; Start 01/10/19 at 21:00 Lactulose (Enulose) 20 gm DAILY PRN PO CONSTIPATION; Start 01/10/19 at 19:00 Acetaminophen (Tylenol Tab) 650 mg Q4H PRN PO PAIN; Start 01/10/19 at 19:00 Miscellaneous Information (Pending [facility] Order For Wound Care) This patient ramirez... PRN PRN XX WOUND CARE; Start 01/10/19 at 19:00 Diagnostic Test (Pha) (Accu-Chek) 1 ea AC MEALS AND BEDTIME XX Last administered on 01/12/19at 11:54; Admin Dose 1 EA; Start 01/10/19 at 21:00 Diagnostic Test (Pha) (Accu-Chek) 1 ea 02 XX ; Start 01/11/19 at 02:00 Albuterol/ Ipratropium (Duoneb) 3 ml Q2H RESP THERAPY PRN HHN SHORTNESS OF BREATH Last administered on 01/11/19 09:39; Admin Dose 3 ML; Start 01/10/19 at 19:30 Atorvastatin Calcium (Lipitor) 40 mg QHS PO Last administered on 01/11/19 20:44; Admin Dose 40 MG; Start 01/10/19 at 21:00 Bisacodyl (Dulcolax) 10 mg BID PRN PO CONSTIPATION; Start 01/10/19 at 19:30 Ferrous Sulfate (Ferrous Sulfate (Ec)) 325 mg BID PO Last administered on 01/12/19at 09:00; Admin Dose 325 MG; Start 01/10/19 at 21:00 Folic Acid (Folic Acid) 1 mg DAILY PO Last administered on 01/12/19 09:00; Admin Dose 1 MG; Start 01/11/19 at 09:00 Acetaminophen/ Hydrocodone Bitart ([place] (5/325)) 1 tab Q6H PRN PO MODERATE PAIN LEVEL 4-6 Last administered on 01/12/19 13:18; Admin Dose 1 TAB; Start 01/10/19 at 19:30 Insulin Aspart (Novolog Insulin Pen) NOVOLOG *MILD* ALGORITHM WITH MEALS BEDTIME SC Last administered on 01/12/19 11:54; Admin Dose 1 UNIT; Start 01/10/19 at 21:00 Insulin Glargine (Lantus) 10 units QHS SC Last administered on 01/10/19 21:59; Admin Dose 10 UNITS; Start 01/10/19 at 21:00; Status Hold Latanoprost (Xalatan) 1 drop HS BOTH EYES Last administered on 01/11/19 20:42; Admin Dose 1 DROP; Start 01/10/19 at 21:00 Levothyroxine Sodium (Synthroid) 125 mcg BEFORE BREAKFAST PO Last administered on 01/12/19 06:17; Admin Dose 125 MCG; Start 01/11/19 at 07:00 Metoprolol Tartrate (Lopressor) 50 mg BID PO Last administered on 01/12/19 09:00; Admin Dose 50 MG; Start 01/10/19 at 21:00 Nitroglycerin (Nitroglycerin (Sl Tab) 0.4 Mg) 0.4 tab Q5M PRN SL CHEST PAIN; Start 01/10/19 at 19:30 Nystatin/ Triamcinolone Acetonide (Mycolog Cr) 1 applic BID TOP Last administered on 01/12/19 09:01; Admin Dose 1 APPLIC; Start 01/10/19 at 21:00 Nystatin (Nystatin Powder) 1 applic BID TOP Last administered on 01/12/19 09:01; Admin Dose 1 APPLIC; Start 01/10/19 at 21:00 Pantoprazole (Protonix Tab) 40 mg DAILY@06 PO Last administered on 01/12/19 06:17; Admin Dose 40 MG; Start 01/11/19 at 06:00 Polyethylene Glycol (Miralax) 17 gm DAILY PO Last administered on 01/12/19 09:01; Admin Dose 17 GM; Start 01/11/19 at 09:00 Pregabalin (Lyrica) 25 mg TID PO Last administered on 01/12/19at 13:18; Admin Dose 25 MG; Start 01/10/19 at 21:00 IV Flush (NS 3 ml) 3 ml PER PROTOCOL IV ; Start 01/10/19 at 19:30 Terazosin HCl (Hytrin) 10 mg HS PO Last administered on 01/11/19at 21:54; Admin Dose 10 MG; Start 01/10/19 at 21:00 Ferric Sodium Gluconate Complex 125 mg/Sodium Chloride 110 ml @ 110 mls/hr DAILY@1300 IVPB Last administered on 01/12/19 13:18; Admin Dose 110 MLS/HR; Start 01/11/19 at 13:00; Stop 01/14/19 at 13:59 Miscellaneous Information 1 ea NOTE XX ; Start 01/10/19 at 19:30 Glucose (Glutose) 15 gm Q15M PRN PO DECREASED GLUCOSE; Start 01/10/19 at 19:30 Glucose (Glutose) 22.5 gm Q15M PRN PO DECREASED GLUCOSE; Start 01/10/19 at 19:30 Dextrose (D50w Syringe) 25 ml Q15M PRN IV DECREASED GLUCOSE; Start 01/10/19 at 19:30 Dextrose (D50w Syringe) 50 ml Q15M PRN IV DECREASED GLUCOSE; Start 01/10/19 at 19:30 Glucagon (Glucagen) 1 mg Q15M PRN IM DECREASED GLUCOSE; Start 01/10/19 at 19:30 Glucose (Glutose) 15 gm Q15M PRN BUCCAL DECREASED GLUCOSE; Start 01/10/19 at 19:30 Multivitamins Therapeutic (Theragran) 1 tab DAILY PO Last administered on 01/12/19at 09:00; Admin Dose 1 TAB; Start 01/12/19 at 09:00 Zinc Sulfate (Zinc Sulfate) 220 mg DAILY PO Last administered on 01/12/19at 09:00; Admin Dose 220 MG; Start 01/12/19 at 09:00 Ascorbic Acid (Vitamin C) 250 mg DAILY PO Last administered on 01/12/19at 13:18; Admin Dose 250 MG; Start 01/12/19 at 13:00 Levofloxacin (Levaquin) 250 mg DAILY@06 PO Last administered on 01/12/19at 06:17; Admin Dose 250 MG; Start 01/12/19 at 06:00 Doxycycline Hyclate (Vibramycin) 100 mg BID PO Last administered on 01/12/19 09:00; Admin Dose 100 MG; Start 01/11/19 at 21:00 Albuterol/ Ipratropium (Duoneb) 3 ml Q6H RESP THERAPY HHN Last administered on 01/12/19at 08:21; Admin Dose 3 ML; Start 01/11/19 at 20:00 LUCIAN HARKINS NP Jan 12, 2019 13:23
[2019-01-12 14:00] VITALS: BP 112/69; PULSE 95; RESP 16
[2019-01-12] MEDS: ACETAMINOPHEN 325 MG TAB PO PRN (17:56)
[2019-01-12 19:41] VITALS: BP 139/63; PULSE 87; RESP 18
[2019-01-12] MEDS: LATANOPROST 0.005% 2.5 ML OPH BOTH EYES SCH (20:39)
[2019-01-12] MEDS: ATORVASTATIN 40 MG TAB PO SCH (20:39)
[2019-01-12] MEDS: TERAZOSIN 5 MG CAP PO SCH (20:40)
[2019-01-12] MEDS: SENNA TAB PO SCH (20:40)
[2019-01-13] MEDS: ALBUTEROL/IPRATROPIUM (NEB) 3 ML AMP HHN SCH ×4 (01:40→20:02)
[2019-01-13 02:00] VITALS: BP 143/67; PULSE 85; RESP 18
[2019-01-13] MEDS: ACCU-CHEK XX SCH ×5 (02:00→21:31)
[2019-01-13] MEDS: LEVOTHYROXINE 125 MCG TAB PO SCH (05:13)
[2019-01-13] MEDS: PANTOPRAZOLE (EC) 40 MG TAB PO SCH (05:13)
[2019-01-13 07:26] VITALS: BP 135/63; PULSE 80; RESP 18
[2019-01-13] MEDS: INSULIN ASPART [NOVOLOG] 3 ML PEN SC SCH ×4 (07:35→21:30)
[2019-01-13] MEDS: POLYETHYLENE GLYCOL 17 GM PACKET PO SCH (08:43)
[2019-01-13] MEDS: FERROUS SULFATE (EC) 325 MG TAB PO SCH ×2 (08:45→17:18)
[2019-01-13] MEDS: MULTIVITAMINS THERAPEUTIC TAB PO SCH (08:45)
[2019-01-13] MEDS: PREGABALIN 25 MG CAP PO SCH ×3 (08:45→21:22)
[2019-01-13] MEDS: ASCORBIC ACID 250 MG TAB PO SCH (08:45)
[2019-01-13] MEDS: FOLIC ACID 1 MG TAB PO SCH (08:45)
[2019-01-13] MEDS: DOXYCYCLINE 100 MG TAB PO SCH ×2 (08:45→21:22)
[2019-01-13] MEDS: ZINC SULFATE 220 MG CAP PO SCH (08:45)
[2019-01-13] MEDS: DOCUSATE SODIUM 100 MG CAP PO SCH ×2 (08:45→21:22)
[2019-01-13] MEDS: NYSTATIN 30 GM POWDER BTL TOP SCH ×2 (08:46→21:18)
[2019-01-13] MEDS: BALSAM PERU/CASTOR OIL 60 GM TUBE TOP SCH ×2 (08:46→21:18)
[2019-01-13] MEDS: METOPROLOL 50 MG TAB PO SCH ×2 (08:46→21:23)
[2019-01-13] MEDS: NYSTATIN/TRIAMCINOLONE 15 GM CR TOP SCH ×2 (08:47→21:19)
[2019-01-13] MEDS: HYDROCODONE/APAP (5/325) TAB PO PRN (08:50)
[2019-01-13] MEDS: SOD FERRIC GLUC COMPLX 125 MG in SOD CHLORIDE 0.9% 100 ML IVPB SCH (13:00)
--- NOTE | 2019-01-13 13:23 | CONS ---
Assessment/Plan Assessment/Plan Hospital Course (Demo Recall) IMPRESSION: 1. Atrial fibrillation, currently rate controlled.-off anticoagulation due to anemia 2. Possible congestive heart failure by chest x-ray, which will be diastolic, acute on chronic by most recent echo with an EF of 60%. 3. Tricuspid regurgitation, moderate by most recent echo. 4. Acute on chronic renal failure. 5. Possible pneumonia. 6. History of coronary artery disease, status post coronary artery bypass graft surgery. 7. Dyslipidemia. 8. Rheumatoid arthritis. 9. Groin cellulitis. 10. Anemia-worsening requiring transfusions PRBC's.Now post-op s/p endoscopy ? findings 11. Diabetes mellitus. Recc: -Tele -serial ecg's -Continue BB's -Holding anticoagulation in the setting of anemia requiring transfusions. Now s/p endoscopy. ? results, ? ability to resume anticoagulation for AF and thus will resume asa only for now and will follow for recurrent bleeding -Continue statin -Continue abx's Consultation Date/Type/Reason Admit Date/Time Jan 10, 2019 at 17:45 Initial Consult Date 01/10/19 Type of Consult Cardiology Reason for Consultation CHF Requesting Provider: IVAN AKHTAR MD Date/Time of Note DATE: 01/13/19 TIME: 13:20 Exam/Review of Systems Vital Signs Vitals Vital Signs Date Temp Pulse Resp B/P (MAP) Pulse Ox O2 O2 Flow FiO2 Time Delivery Rate 01/13/19 Nasal 2.0 08:30 Cannula 01/13/19 98.1 80 18 135/63 99 07:26 (87) Intake and Output 01/12/19 01/12/19 01/13/19 1515:00 23:00 07:00 IntakeIntake Total 200 ml BalanceBalance 200 ml Exam Exam Review of Systems: CONSTITUTIONAL: No fevers, chills. PULMONARY: No sob CARDIOVASCULAR: No chest pain/palpitations GASTROINTESTINAL: No nausea/vomiting. GENITOURINARY: No hematuria/dysuria. MUSCULOSKELETAL: No myagias/arthalgias./skin chaffing PSYCHIATRIC: The patient denies depression. NEUROLOGIC: mild generalized weakness Constitutional: alert Psych: no complaints Head: normocephalic ENMT: mucosa pink and moist Neck: supple, jvd (9 cm water) Respiratory: diminished breath sounds (at bases/B) Cardiovascular: irregular rhythm Gastrointestinal: soft, non-tender Musculoskeletal: muscle weakness (mild generalized) Extremities: edema (none) Skin: other (skin breakdown/chaffing) Labs Result Diagram: 01/13/19 0702 01/13/19 0702 Results 24hrs Laboratory Tests Test 01/12/19 17:27 01/12/19 20:39 01/13/19 07:02 01/13/19 07:40 Bedside Glucose 132 140 119 White Blood Count 14.3 H Red Blood Count 2.65 L Hemoglobin 7.8 L Hematocrit 24.2 L Mean Corpuscular 91.3 Volume Mean Corpuscular 29.4 Hemoglobin Mean Corpuscular 32.2 Hemoglobin Concent Red Cell 17.7 H Distribution Width Platelet Count 284 Mean Platelet Volume 10.2 Immature 1.300 H Granulocytes % Neutrophils % 75.9 Lymphocytes % 12.6 L Monocytes % 8.6 Eosinophils % 1.5 Basophils % 0.1 Nucleated Red Blood 0.2 H Cells % Immature 0.180 H Granulocytes # Neutrophils # 10.8 H Lymphocytes # 1.8 Monocytes # 1.2 H Eosinophils # 0.2 Basophils # 0.0 Nucleated Red Blood 0.0 Cells # Sodium Level 135 Potassium Level 4.5 Chloride Level 103 Carbon Dioxide Level 21 Anion Gap 11 Blood Urea Nitrogen 47 H Creatinine 1.75 H Est Glomerular Filtrat Rate mL/min Glucose Level 107 Calcium Level 8.3 L Test 01/13/19 12:05 Bedside Glucose 189 Medications Medications Current Medications Docusate Sodium (Colace) 100 mg BID PO Last administered on 01/13/19at 08:45; Admin Dose 100 MG; Start 01/10/19 at 21:00 Senna (Senokot) 1 tab HS PO Last administered on 01/12/19at 20:40; Admin Dose 1 TAB; Start 01/10/19 at 21:00 Lactulose (Enulose) 20 gm DAILY PRN PO CONSTIPATION Last administered on 01/12/19at 15:37; Admin Dose 20 GM; Start 01/10/19 at 19:00 Acetaminophen (Tylenol Tab) 650 mg Q4H PRN PO PAIN Last administered on 01/12/19at 17:56; Admin Dose 650 MG; Start 01/10/19 at 19:00 Miscellaneous Information (Pending [facility] Order For Wound Care) This patient ramirez. .. PRN PRN XX WOUND CARE; Start 01/10/19 at 19:00 Diagnostic Test (Pha) (Accu-Chek) 1 ea AC MEALS AND BEDTIME XX Last administered on 01/13/19 12:07; Admin Dose 1 EA; Start 01/10/19 at 21:00 Diagnostic Test (Pha) (Accu-Chek) 1 ea 02 XX ; Start 01/11/19 at 02:00 Albuterol/ Ipratropium (Duoneb) 3 ml Q2H RESP THERAPY PRN HHN SHORTNESS OF BREATH Last administered on 01/11/19 09:39; Admin Dose 3 ML; Start 01/10/19 at 19:30 Atorvastatin Calcium (Lipitor) 40 mg QHS PO Last administered on 01/12/19 20:39; Admin Dose 40 MG; Start 01/10/19 at 21:00 Bisacodyl (Dulcolax) 10 mg BID PRN PO CONSTIPATION; Start 01/10/19 at 19:30 Ferrous Sulfate (Ferrous Sulfate (Ec)) 325 mg BID PO Last administered on 01/13/19 08:45; Admin Dose 325 MG; Start 01/10/19 at 21:00 Folic Acid (Folic Acid) 1 mg DAILY PO Last administered on 01/13/19 08:45; Admin Dose 1 MG; Start 01/11/19 at 09:00 Acetaminophen/ Hydrocodone Bitart ([place] (5/325)) 1 tab Q6H PRN PO MODERATE PAIN LEVEL 4-6 Last administered on 01/13/19 08:50; Admin Dose 1 TAB; Start 01/10/19 at 19:30 Insulin Aspart (Novolog Insulin Pen) NOVOLOG *MILD* ALGORITHM WITH MEALS BEDTIME SC Last administered on 01/13/19 12:08; Admin Dose 2 UNIT; Start 01/10/19 at 21:00 Insulin Glargine (Lantus) 10 units QHS SC Last administered on 01/10/19 21:59; Admin Dose 10 UNITS; Start 01/10/19 at 21:00; Status Hold Latanoprost (Xalatan) 1 drop HS BOTH EYES Last administered on 01/12/19 20:39; Admin Dose 1 DROP; Start 01/10/19 at 21:00 Levothyroxine Sodium (Synthroid) 125 mcg BEFORE BREAKFAST PO Last administered on 01/13/19 05:13; Admin Dose 125 MCG; Start 01/11/19 at 07:00 Metoprolol Tartrate (Lopressor) 50 mg BID PO Last administered on 01/13/19 08:46; Admin Dose 50 MG; Start 01/10/19 at 21:00 Nitroglycerin (Nitroglycerin (Sl Tab) 0.4 Mg) 0.4 tab Q5M PRN SL CHEST PAIN; Start 01/10/19 at 19:30 Nystatin/ Triamcinolone Acetonide (Mycolog Cr) 1 applic BID TOP Last administered on 01/13/19at 08:47; Admin Dose 1 APPLIC; Start 01/10/19 at 21:00 Nystatin (Nystatin Powder) 1 applic BID TOP Last administered on 01/13/19 08:46; Admin Dose 1 APPLIC; Start 01/10/19 at 21:00 Pantoprazole (Protonix Tab) 40 mg DAILY@06 PO Last administered on 01/13/19 05:13; Admin Dose 40 MG; Start 01/11/19 at 06:00 Polyethylene Glycol (Miralax) 17 gm DAILY PO Last administered on 01/13/19at 08:43; Admin Dose 17 GM; Start 01/11/19 at 09:00 Pregabalin (Lyrica) 25 mg TID PO Last administered on 01/13/19at 13:06; Admin Dose 25 MG; Start 01/10/19 at 21:00 IV Flush (NS 3 ml) 3 ml PER PROTOCOL IV ; Start 01/10/19 at 19:30 Terazosin HCl (Hytrin) 10 mg HS PO Last administered on 01/12/19at 20:40; Admin Dose 10 MG; Start 01/10/19 at 21:00 Ferric Sodium Gluconate Complex 125 mg/Sodium Chloride 110 ml @ 110 mls/hr DAILY@1300 IVPB Last administered on 01/12/19at 13:18; Admin Dose 110 MLS/HR; Start 01/11/19 at 13:00; Stop 01/14/19 at 13:59 Miscellaneous Information 1 ea NOTE XX ; Start 01/10/19 at 19:30 Glucose (Glutose) 15 gm Q15M PRN PO DECREASED GLUCOSE; Start 01/10/19 at 19:30 Glucose (Glutose) 22.5 gm Q15M PRN PO DECREASED GLUCOSE; Start 01/10/19 at 19:30 Dextrose (D50w Syringe) 25 ml Q15M PRN IV DECREASED GLUCOSE; Start 01/10/19 at 19:30 Dextrose (D50w Syringe) 50 ml Q15M PRN IV DECREASED GLUCOSE; Start 01/10/19 at 19:30 Glucagon (Glucagen) 1 mg Q15M PRN IM DECREASED GLUCOSE; Start 01/10/19 at 19:30 Glucose (Glutose) 15 gm Q15M PRN BUCCAL DECREASED GLUCOSE; Start 01/10/19 at 19:30 Multivitamins Therapeutic (Theragran) 1 tab DAILY PO Last administered on 01/13/19at 08:45; Admin Dose 1 TAB; Start 01/12/19 at 09:00 Zinc Sulfate (Zinc Sulfate) 220 mg DAILY PO Last administered on 01/13/19at 08:45; Admin Dose 220 MG; Start 01/12/19 at 09:00 Ascorbic Acid (Vitamin C) 250 mg DAILY PO Last administered on 01/13/19at 08:45; Admin Dose 250 MG; Start 01/12/19 at 13:00 Doxycycline Hyclate (Vibramycin) 100 mg BID PO Last administered on 01/13/19at 08:45; Admin Dose 100 MG; Start 01/11/19 at 21:00 Albuterol/ Ipratropium (Duoneb) 3 ml Q6H RESP THERAPY HHN Last administered on 01/13/19at 01:40; Admin Dose 3 ML; Start 01/11/19 at 20:00 Levofloxacin (Levaquin) 250 mg Q2D@0600 PO ; Start 01/14/19 at 06:00 Multi-Ingredient Ointment (Aquaphor Oint 52.5 Gm) 1 applic BID TOP ; Start 01/13/19 at 13:30 MARJORIE JAIN Jan 13, 2019 13:23
--- NOTE | 2019-01-13 14:06 | PN ---
Date/Time of Note Date/Time of Note DATE: 01/13/19 TIME: 14:03 Objective Vital Signs Date Temp Pulse Resp B/P (MAP) Pulse Ox O2 O2 Flow FiO2 Time Delivery Rate 01/13/19 Nasal 2.0 08:30 Cannula 01/13/19 98.1 80 18 135/63 99 07:26 (87) Intake and Output 01/12/19 01/12/19 01/13/19 1515:00 23:00 07:00 IntakeIntake Total 200 ml BalanceBalance 200 ml Exam INTERDISCIPLINARY TEAM CONFERENCE Attended by PT, OT, ST, [employer] Gold Attendant, Social Work, Rehabilitation Nursing, Service Bar Cashier and Hr Administrative AssistantAcid Tender Exam: Pulm- cta Abd-soft BOWEL- Cont BLADDER-retention SKIN- moisture related fissure in sacral region improving, patient with diffuse desquamation, appears to be improving slightly OT- DRESSING- max/dep BATHING-max/dep TOILETING-dep PT- BED MOBILITY- max TRANSFERS-max AMBULATION- UA A/P- Interdisciplinary team conference held today. Please see interdisciplinary sheet. Working toward d.c. on 01/24 with post discharge follow up of physical therapy, occupational therapy. Results/Medications Result Diagram: 01/13/19 0702 01/13/19 0702 Results 24 hrs Laboratory Tests Test 01/12/19 17:27 01/12/19 20:39 01/13/19 07:02 01/13/19 07:40 Bedside Glucose 132 140 119 White Blood Count 14.3 H Red Blood Count 2.65 L Hemoglobin 7.8 L Hematocrit 24.2 L Mean Corpuscular 91.3 Volume Mean Corpuscular 29.4 Hemoglobin Mean Corpuscular 32.2 Hemoglobin Concent Red Cell 17.7 H Distribution Width Platelet Count 284 Mean Platelet Volume 10.2 Immature 1.300 H Granulocytes % Neutrophils % 75.9 Lymphocytes % 12.6 L Monocytes % 8.6 Eosinophils % 1.5 Basophils % 0.1 Nucleated Red Blood 0.2 H Cells % Immature 0.180 H Granulocytes # Neutrophils # 10.8 H Lymphocytes # 1.8 Monocytes # 1.2 H Eosinophils # 0.2 Basophils # 0.0 Nucleated Red Blood 0.0 Cells # Sodium Level 135 Potassium Level 4.5 Chloride Level 103 Carbon Dioxide Level 21 Anion Gap 11 Blood Urea Nitrogen 47 H Creatinine 1.75 H Est Glomerular Filtrat Rate mL/min Glucose Level 107 Calcium Level 8.3 L Test 01/13/19 12:05 Bedside Glucose 189 Medications Current Medications Docusate Sodium (Colace) 100 mg BID PO Last administered on 01/13/19 08:45; Admin Dose 100 MG; Start 01/10/19 at 21:00 Senna (Senokot) 1 tab HS PO Last administered on 01/12/19 20:40; Admin Dose 1 TAB; Start 01/10/19 at 21:00 Lactulose (Enulose) 20 gm DAILY PRN PO CONSTIPATION Last administered on 01/12/19 15:37; Admin Dose 20 GM; Start 01/10/19 at 19:00 Acetaminophen (Tylenol Tab) 650 mg Q4H PRN PO PAIN Last administered on 01/12/19 17:56; Admin Dose 650 MG; Start 01/10/19 at 19:00 Miscellaneous Information ([facility] This patient ramirez... PRN PRN XX WOUND CARE; Start 01/10/19 at 19:00 Diagnostic Test (Pha) (Accu-Chek) 1 ea AC MEALS AND BEDTIME XX Last administered on 01/13/19 12:07; Admin Dose 1 EA; Start 01/10/19 at 21:00 Diagnostic Test (Pha) (Accu-Chek) 1 ea 02 XX ; Start 01/11/19 at 02:00 Albuterol/ Ipratropium (Duoneb) 3 ml Q2H RESP THERAPY PRN HHN SHORTNESS OF BREATH Last administered on 01/11/19 09:39; Admin Dose 3 ML; Start 01/10/19 at 19:30 Atorvastatin Calcium (Lipitor) 40 mg QHS PO Last administered on 01/12/19 20:39; Admin Dose 40 MG; Start 01/10/19 at 21:00 Bisacodyl (Dulcolax) 10 mg BID PRN PO CONSTIPATION; Start 01/10/19 at 19:30 Ferrous Sulfate (Ferrous Sulfate (Ec)) 325 mg BID PO Last administered on 01/13/19 08:45; Admin Dose 325 MG; Start 01/10/19 at 21:00 Folic Acid (Folic Acid) 1 mg DAILY PO Last administered on 01/13/19 08:45; Admin Dose 1 MG; Start 01/11/19 at 09:00 Acetaminophen/ Hydrocodone Bitart ([place] (5/325)) 1 tab Q6H PRN PO MODERATE PAIN LEVEL 4-6 Last administered on 01/13/19 08:50; Admin Dose 1 TAB; Start 01/10/19 at 19:30 Insulin Aspart (Novolog Insulin Pen) NOVOLOG *MILD* ALGORITHM WITH MEALS BEDTIME SC Last administered on 01/13/19 12:08; Admin Dose 2 UNIT; Start 01/10/19 at 21:00 Insulin Glargine (Lantus) 10 units QHS SC Last administered on 01/10/19 21:59; Admin Dose 10 UNITS; Start 01/10/19 at 21:00; Status Hold Latanoprost (Xalatan) 1 drop HS BOTH EYES Last administered on 01/12/19 20:39; Admin Dose 1 DROP; Start 01/10/19 at 21:00 Levothyroxine Sodium (Synthroid) 125 mcg BEFORE BREAKFAST PO Last administered on 01/13/19 05:13; Admin Dose 125 MCG; Start 01/11/19 at 07:00 Metoprolol Tartrate (Lopressor) 50 mg BID PO Last administered on 01/13/19 08:46; Admin Dose 50 MG; Start 01/10/19 at 21:00 Nitroglycerin (Nitroglycerin (Sl Tab) 0.4 Mg) 0.4 tab Q5M PRN SL CHEST PAIN; Start 01/10/19 at 19:30 Nystatin/ Triamcinolone Acetonide (Mycolog Cr) 1 applic BID TOP Last administered on 01/13/19 08:47; Admin Dose 1 APPLIC; Start 01/10/19 at 21:00 Nystatin (Nystatin Powder) 1 applic BID TOP Last administered on 01/13/19 08:46; Admin Dose 1 APPLIC; Start 01/10/19 at 21:00 Pantoprazole (Protonix Tab) 40 mg DAILY@06 PO Last administered on 01/13/19 05:13; Admin Dose 40 MG; Start 01/11/19 at 06:00 Polyethylene Glycol (Miralax) 17 gm DAILY PO Last administered on 01/13/19 08:43; Admin Dose 17 GM; Start 01/11/19 at 09:00 Pregabalin (Lyrica) 25 mg TID PO Last administered on 01/13/19 13:06; Admin Dose 25 MG; Start 01/10/19 at 21:00 IV Flush (NS 3 ml) 3 ml PER PROTOCOL IV ; Start 01/10/19 at 19:30 Terazosin HCl (Hytrin) 10 mg HS PO Last administered on 01/12/19at 20:40; Admin Dose 10 MG; Start 01/10/19 at 21:00 Ferric Sodium Gluconate Complex 125 mg/Sodium Chloride 110 ml @ 110 mls/hr DAILY@1300 IVPB Last administered on 01/12/19at 13:18; Admin Dose 110 MLS/HR; Start 01/11/19 at 13:00; Stop 01/14/19 at 13:59 Miscellaneous Information 1 ea NOTE XX ; Start 01/10/19 at 19:30 Glucose (Glutose) 15 gm Q15M PRN PO DECREASED GLUCOSE; Start 01/10/19 at 19:30 Glucose (Glutose) 22.5 gm Q15M PRN PO DECREASED GLUCOSE; Start 01/10/19 at 19:30 Dextrose (D50w Syringe) 25 ml Q15M PRN IV DECREASED GLUCOSE; Start 01/10/19 at 19:30 Dextrose (D50w Syringe) 50 ml Q15M PRN IV DECREASED GLUCOSE; Start 01/10/19 at 19:30 Glucagon (Glucagen) 1 mg Q15M PRN IM DECREASED GLUCOSE; Start 01/10/19 at 19:30 Glucose (Glutose) 15 gm Q15M PRN BUCCAL DECREASED GLUCOSE; Start 01/10/19 at 19:30 Multivitamins Therapeutic (Theragran) 1 tab DAILY PO Last administered on 01/13/19at 08:45; Admin Dose 1 TAB; Start 01/12/19 at 09:00 Zinc Sulfate (Zinc Sulfate) 220 mg DAILY PO Last administered on 01/13/19 08:45; Admin Dose 220 MG; Start 01/12/19 at 09:00 Ascorbic Acid (Vitamin C) 250 mg DAILY PO Last administered on 01/13/19 08:45; Admin Dose 250 MG; Start 01/12/19 at 13:00 Doxycycline Hyclate (Vibramycin) 100 mg BID PO Last administered on 01/13/19at 08:45; Admin Dose 100 MG; Start 01/11/19 at 21:00 Albuterol/ Ipratropium (Duoneb) 3 ml Q6H RESP THERAPY HHN Last administered on 01/13/19at 01:40; Admin Dose 3 ML; Start 01/11/19 at 20:00 Levofloxacin (Levaquin) 250 mg Q2D@0600 PO ; Start 01/14/19 at 06:00 Multi-Ingredient Ointment (Aquaphor Oint 52.5 Gm) 1 applic BID TOP ; Start 01/13/19 at 13:30 Aspirin (Aspirin) 81 mg DAILY PO ; Start 01/14/19 at 09:00; Status DEEPALI DUNNE MD Jan 13, 2019 14:06
[2019-01-13 14:30] VITALS: BP 130/57; PULSE 85; RESP 20
[2019-01-13] MEDS: AQUAPHOR 52.5 GM OINT TOP SCH ×2 (14:59→21:19)
--- NOTE | 2019-01-13 15:32 | CONS ---
Assessment/Plan Assessment/Plan Hospital Course (Demo Recall) Alert getting breathing treatment, looks comfortable. He had a low-grade fever yesterday but had been afebrile overnight and currently afebrile WBC today 14.3 platelets 284 neutrophils 75.9 BUN 47 creatinine 1.75 Urine culture repeated 3 days ago negative MRSA swab negative chest x-ray this morning revealed cardiomegaly no significant change in patchy bilateral interstitial opacities Antimicrobials: Doxycycline, Levaquin Allergy: Penicillin, sulfa Physical examination: Obese well-developed chronically ill-appearing - [place] man who is awake in no distress. Head atraumatic normocephalic sclera nonicteric. Neck is supple chest rise symmetrical breath sounds diminished base s. Heart: S1-S2. Abdomen obese soft bowel sounds present extremities without cyanosis Assessment: 1. S/p sepsis, present on admission 2. Pneumonia, resolving 3. Coronary artery disease/history of CABG 4. Advanced rheumatoid arthritis 5. Chronic atrial fibrillation 6. Diabetes 7. BPH 8. Bilateral groin fungal cellulitis 9. Acute on chronic anemia===> s/p EGD/colonoscopy 01/09/19 10. Right epididymitis Plan: Remains stable, continue antibiotics, repeat cultures for temperature of 101 Consultation Date/Type/Reason Admit Date/Time Jan 10, 2019 at 17:45 Initial Consult Date Type of Consult id Requesting Provider: IVAN AKHTAR MD Date/Time of Note DATE: 01/13/19 TIME: 15:31 Exam/Review of Systems Exam Vitals Vital Signs Date Temp Pulse Resp B/P (MAP) Pulse Ox O2 O2 Flow FiO2 Time Delivery Rate 01/13/19 97.8 85 20 130/57 100 Nasal 14:30 (81) Cannula 01/13/19 2.0 08:30 Intake and Output 01/12/19 01/12/19 01/13/19 1515:00 23:00 07:00 IntakeIntake Total 200 ml BalanceBalance 200 ml Results Result Diagram: 01/13/19 0702 01/13/19 0702 Results 24hrs Laboratory Tests Test 01/12/19 17:27 01/12/19 20:39 01/13/19 07:02 01/13/19 07:40 Bedside Glucose 132 140 119 White Blood Count 14.3 H Red Blood Count 2.65 L Hemoglobin 7.8 L Hematocrit 24.2 L Mean Corpuscular 91.3 Volume Mean Corpuscular 29.4 Hemoglobin Mean Corpuscular 32.2 Hemoglobin Concent Red Cell 17.7 H Distribution Width Platelet Count 284 Mean Platelet Volume 10.2 Immature 1.300 H Granulocytes % Neutrophils % 75.9 Lymphocytes % 12.6 L Monocytes % 8.6 Eosinophils % 1.5 Basophils % 0.1 Nucleated Red Blood 0.2 H Cells % Immature 0.180 H Granulocytes # Neutrophils # 10.8 H Lymphocytes # 1.8 Monocytes # 1.2 H Eosinophils # 0.2 Basophils # 0.0 Nucleated Red Blood 0.0 Cells # Sodium Level 135 Potassium Level 4.5 Chloride Level 103 Carbon Dioxide Level 21 Anion Gap 11 Blood Urea Nitrogen 47 H Creatinine 1.75 H Est Glomerular Filtrat Rate mL/min Glucose Level 107 Calcium Level 8.3 L Test 01/13/19 12:05 Bedside Glucose 189 Medications Medication Current Medications Docusate Sodium (Colace) 100 mg BID PO Last administered on 01/13/19 08:45; Admin Dose 100 MG; Start 01/10/19 at 21:00 Senna (Senokot) 1 tab HS PO Last administered on 01/12/19 20:40; Admin Dose 1 TAB; Start 01/10/19 at 21:00 Lactulose (Enulose) 20 gm DAILY PRN PO CONSTIPATION Last administered on 01/12/19 15:37; Admin Dose 20 GM; Start 01/10/19 at 19:00 Acetaminophen (Tylenol Tab) 650 mg Q4H PRN PO PAIN Last administered on 01/12/19 17:56; Admin Dose 650 MG; Start 01/10/19 at 19:00 Miscellaneous Information (Pending [facility] Order For Wound Care) This patient ramirez... PRN PRN XX WOUND CARE; Start 01/10/19 at 19:00 Diagnostic Test (Pha) (Accu-Chek) 1 ea AC MEALS AND BEDTIME XX Last administered on 01/13/19 12:07; Admin Dose 1 EA; Start 01/10/19 at 21:00 Diagnostic Test (Pha) (Accu-Chek) 1 ea 02 XX ; Start 01/11/19 at 02:00 Albuterol/ Ipratropium (Duoneb) 3 ml Q2H RESP THERAPY PRN HHN SHORTNESS OF BREATH Last administered on 01/11/19 09:39; Admin Dose 3 ML; Start 01/10/19 at 19:30 Atorvastatin Calcium (Lipitor) 40 mg QHS PO Last administered on 01/12/19 20:39; Admin Dose 40 MG; Start 01/10/19 at 21:00 Bisacodyl (Dulcolax) 10 mg BID PRN PO CONSTIPATION; Start 01/10/19 at 19:30 Folic Acid (Folic Acid) 1 mg DAILY PO Last administered on 01/13/19 08:45; Admin Dose 1 MG; Start 01/11/19 at 09:00 Acetaminophen/ Hydrocodone Bitart ([place] (5/325)) 1 tab Q6H PRN PO MODERATE PAIN LEVEL 4-6 Last administered on 01/13/19 08:50; Admin Dose 1 TAB; Start 01/10/19 at 19:30 Insulin Aspart (Novolog Insulin Pen) NOVOLOG *MILD* ALGORITHM WITH MEALS BEDTIME SC Last administered on 01/13/19 12:08; Admin Dose 2 UNIT; Start 01/10/19 at 21:00 Insulin Glargine (Lantus) 10 units QHS SC Last administered on 01/10/19 21:59; Admin Dose 10 UNITS; Start 01/10/19 at 21:00; Status Hold Latanoprost (Xalatan) 1 drop HS BOTH EYES Last administered on 01/12/19 20:39; Admin Dose 1 DROP; Start 01/10/19 at 21:00 Levothyroxine Sodium (Synthroid) 125 mcg BEFORE BREAKFAST PO Last administered on 01/13/19 05:13; Admin Dose 125 MCG; Start 01/11/19 at 07:00 Metoprolol Tartrate (Lopressor) 50 mg BID PO Last administered on 01/13/19 08:46; Admin Dose 50 MG; Start 01/10/19 at 21:00 Nitroglycerin (Nitroglycerin (Sl Tab) 0.4 Mg) 0.4 tab Q5M PRN SL CHEST PAIN; Start 01/10/19 at 19:30 Nystatin/ Triamcinolone Acetonide (Mycolog Cr) 1 applic BID TOP Last administered on 01/13/19 08:47; Admin Dose 1 APPLIC; Start 01/10/19 at 21:00 Nystatin (Nystatin Powder) 1 applic BID TOP Last administered on 01/13/19 08:46; Admin Dose 1 APPLIC; Start 01/10/19 at 21:00 Pantoprazole (Protonix Tab) 40 mg DAILY@06 PO Last administered on 01/13/19 05:13; Admin Dose 40 MG; Start 01/11/19 at 06:00 Polyethylene Glycol (Miralax) 17 gm DAILY PO Last administered on 01/13/19 08:43; Admin Dose 17 GM; Start 01/11/19 at 09:00 Pregabalin (Lyrica) 25 mg TID PO Last administered on 01/13/19 13:06; Admin Dose 25 MG; Start 01/10/19 at 21:00 IV Flush (NS 3 ml) 3 ml PER PROTOCOL IV ; Start 01/10/19 at 19:30 Terazosin HCl (Hytrin) 10 mg HS PO Last administered on 01/12/19 20:40; Admin Dose 10 MG; Start 01/10/19 at 21:00 Miscellaneous Information 1 ea NOTE XX ; Start 01/10/19 at 19:30 Glucose (Glutose) 15 gm Q15M PRN PO DECREASED GLUCOSE; Start 01/10/19 at 19:30 Glucose (Glutose) 22.5 gm Q15M PRN PO DECREASED GLUCOSE; Start 01/10/19 at 19:30 Dextrose (D50w Syringe) 25 ml Q15M PRN IV DECREASED GLUCOSE; Start 01/10/19 at 19:30 Dextrose (D50w Syringe) 50 ml Q15M PRN IV DECREASED GLUCOSE; Start 01/10/19 at 19:30 Glucagon (Glucagen) 1 mg Q15M PRN IM DECREASED GLUCOSE; Start 01/10/19 at 19:30 Glucose (Glutose) 15 gm Q15M PRN BUCCAL DECREASED GLUCOSE; Start 01/10/19 at 19:30 Multivitamins Therapeutic (Theragran) 1 tab DAILY PO Last administered on 01/13/19 08:45; Admin Dose 1 TAB; Start 01/12/19 at 09:00 Zinc Sulfate (Zinc Sulfate) 220 mg DAILY PO Last administered on 01/13/19 08:45; Admin Dose 220 MG; Start 01/12/19 at 09:00 Ascorbic Acid (Vitamin C) 250 mg DAILY PO Last administered on 01/13/19 08:45; Admin Dose 250 MG; Start 01/12/19 at 13:00 Doxycycline Hyclate (Vibramycin) 100 mg BID PO Last administered on 01/13/19at 08:45; Admin Dose 100 MG; Start 01/11/19 at 21:00 Albuterol/ Ipratropium (Duoneb) 3 ml Q6H RESP THERAPY HHN Last administered on 01/13/19at 14:53; Admin Dose 3 ML; Start 01/11/19 at 20:00 Levofloxacin (Levaquin) 250 mg Q2D@0600 PO ; Start 01/14/19 at 06:00 Multi-Ingredient Ointment (Aquaphor Oint 52.5 Gm) 1 applic BID TOP Last administered on 01/13/19at 14:59; Admin Dose 1 APPLIC; Start 01/13/19 at 13:30 Aspirin (Aspirin) 81 mg DAILY PO ; Start 01/14/19 at 09:00 Ferrous Sulfate (Ferrous Sulfate (Ec)) 325 mg WITH MEALS PO ; Start 01/13/19 at 17:35 LUCIAN HARKINS NP Jan 13, 2019 15:32
--- NOTE | 2019-01-13 16:50 | PN ---
Date/Time of Note Date/Time of Note DATE: 01/13/19 TIME: 16:47 Assessment/Plan VTE Prophylaxis Risk score (from Nsg)>0 risk: 8 SCD applied (from Ns): Yes Pharmacological prophylaxis: NA/contraindicated Pharm contraindication: low risk/ambulating Lines/Catheters IV Catheter Type (from Nrs): Saline Lock Urinary Cath still in place: Yes Reason Cath still needed: urinary retention Assessment/Plan Assessment/Plan 88 y/o with 1. Recent sepsis, SOB, weakness. Pt had recent bilateral pneumonia. 2. COPD, on oxygen at home 3. Acute on chronic renal failure likely secondary to sepsis 4. Hypertension. 5. Hyperlipidemia. 6. Hypothyroidism. 7. Normocytic normochromic chronic anemia with recent hemoglobin drop in HG to 7.0, to day 6.9. S/p blood transfusion 8. Bilateral groin cellulitis more likely associated with mateus, patches in groin and axilla bilaterally. Back rash 9. History of rheumatoid arthritis with joint deformities. 10. Diabetes type 2. 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 Peripheral vascular disease. 13. Chronic a.fib 14. right arm edema 15 ansarca with hypoalbuminemia Assessment/Plan -US right arm is negative -Start on low dose Lasix and monitor kidney function -DVT proph. unable to tolerate Eliquiz, SCD, restarted on aspirin -Monitor hemoglobin -GI prophylaxis Faotidine BID -pain control -blood transfusion -c/w home meds -nyst cream BID axilla -supp. oxygen PT OT Result Diagram: 01/13/19 0702 01/13/19 0702 Results 24hrs Laboratory Tests Test 01/12/19 17:27 01/12/19 20:39 01/13/19 07:02 01/13/19 07:40 Bedside Glucose 132 140 119 White Blood Count 14.3 H Red Blood Count 2.65 L Hemoglobin 7.8 L Hematocrit 24.2 L Mean Corpuscular 91.3 Volume Mean Corpuscular 29.4 Hemoglobin Mean Corpuscular 32.2 Hemoglobin Concent Red Cell 17.7 H Distribution Width Platelet Count 284 Mean Platelet Volume 10.2 Immature 1.300 H Granulocytes % Neutrophils % 75.9 Lymphocytes % 12.6 L Monocytes % 8.6 Eosinophils % 1.5 Basophils % 0.1 Nucleated Red Blood 0.2 H Cells % Immature 0.180 H Granulocytes # Neutrophils # 10.8 H Lymphocytes # 1.8 Monocytes # 1.2 H Eosinophils # 0.2 Basophils # 0.0 Nucleated Red Blood 0.0 Cells # Sodium Level 135 Potassium Level 4.5 Chloride Level 103 Carbon Dioxide Level 21 Anion Gap 11 Blood Urea Nitrogen 47 H Creatinine 1.75 H Est Glomerular Filtrat Rate mL/min Glucose Level 107 Calcium Level 8.3 L Test 01/13/19 12:05 Bedside Glucose 189 Subjective 24 Hr Interval Summary Free Text/Dictation Feels very swollen. Hemoglobin 7.8 today Exam/Review of Systems Exam Vitals Vital Signs Date Temp Pulse Resp B/P (MAP) Pulse Ox O2 O2 Flow FiO2 Time Delivery Rate 01/13/19 97.8 85 20 130/57 100 Nasal 14:30 (81) Cannula 01/13/19 2.0 08:30 Intake and Output 01/12/19 01/12/19 01/13/19 1515:00 23:00 07:00 IntakeIntake Total 200 ml BalanceBalance 200 ml Exam onstitutional: alert, oriented Head: normocephalic Eyes: nl conjunctiva Respiratory: normal air movement, diminished breath sounds Cardiovascular: regular rate and rhythm Gastrointestinal: soft Musculoskeletal: joint tenderness Diffuse skin rash edema arms>legs Results Results 24hrs Laboratory Tests Test 01/12/19 17:27 01/12/19 20:39 01/13/19 07:02 01/13/19 07:40 Bedside Glucose 132 140 119 White Blood Count 14.3 H Red Blood Count 2.65 L Hemoglobin 7.8 L Hematocrit 24.2 L Mean Corpuscular 91.3 Volume Mean Corpuscular 29.4 Hemoglobin Mean Corpuscular 32.2 Hemoglobin Concent Red Cell 17.7 H Distribution Width Platelet Count 284 Mean Platelet Volume 10.2 Immature 1.300 H Granulocytes % Neutrophils % 75.9 Lymphocytes % 12.6 L Monocytes % 8.6 Eosinophils % 1.5 Basophils % 0.1 Nucleated Red Blood 0.2 H Cells % Immature 0.180 H Granulocytes # Neutrophils # 10.8 H Lymphocytes # 1.8 Monocytes # 1.2 H Eosinophils # 0.2 Basophils # 0.0 Nucleated Red Blood 0.0 Cells # Sodium Level 135 Potassium Level 4.5 Chloride Level 103 Carbon Dioxide Level 21 Anion Gap 11 Blood Urea Nitrogen 47 H Creatinine 1.75 H Est Glomerular Filtrat Rate mL/min Glucose Level 107 Calcium Level 8.3 L Test 01/13/19 12:05 Bedside Glucose 189 Medications Medication Current Medications Docusate Sodium (Colace) 100 mg BID PO Last administered on 01/13/19 08:45; Admin Dose 100 MG; Start 01/10/19 at 21:00 Senna (Senokot) 1 tab HS PO Last administered on 01/12/19 20:40; Admin Dose 1 TAB; Start 01/10/19 at 21:00 Lactulose (Enulose) 20 gm DAILY PRN PO CONSTIPATION Last administered on 01/12/19 15:37; Admin Dose 20 GM; Start 01/10/19 at 19:00 Acetaminophen (Tylenol Tab) 650 mg Q4H PRN PO PAIN Last administered on 01/12/19 17:56; Admin Dose 650 MG; Start 01/10/19 at 19:00 Miscellaneous Information (Pending [facility] Order For Wound Care) This patient ramirez... PRN PRN XX WOUND CARE; Start 01/10/19 at 19:00 Diagnostic Test (Pha) (Accu-Chek) 1 ea AC MEALS AND BEDTIME XX Last administered on 01/13/19 12:07; Admin Dose 1 EA; Start 01/10/19 at 21:00 Diagnostic Test (Pha) (Accu-Chek) 1 ea 02 XX ; Start 01/11/19 at 02:00 Albuterol/ Ipratropium (Duoneb) 3 ml Q2H RESP THERAPY PRN HHN SHORTNESS OF BREATH Last administered on 01/11/19 09:39; Admin Dose 3 ML; Start 01/10/19 at 19:30 Atorvastatin Calcium (Lipitor) 40 mg QHS PO Last administered on 01/12/19 20:39; Admin Dose 40 MG; Start 01/10/19 at 21:00 Bisacodyl (Dulcolax) 10 mg BID PRN PO CONSTIPATION; Start 01/10/19 at 19:30 Folic Acid (Folic Acid) 1 mg DAILY PO Last administered on 01/13/19 08:45; Admin Dose 1 MG; Start 01/11/19 at 09:00 Acetaminophen/ Hydrocodone Bitart ([place] (5/325)) 1 tab Q6H PRN PO MODERATE PAIN LEVEL 4-6 Last administered on 01/13/19 08:50; Admin Dose 1 TAB; Start 01/10/19 at 19:30 Insulin Aspart (Novolog Insulin Pen) NOVOLOG *MILD* ALGORITHM WITH MEALS BEDTIME SC Last administered on 01/13/19 12:08; Admin Dose 2 UNIT; Start 01/10/19 at 21:00 Insulin Glargine (Lantus) 10 units QHS SC Last administered on 01/10/19 21:59; Admin Dose 10 UNITS; Start 01/10/19 at 21:00; Status Hold Latanoprost (Xalatan) 1 drop HS BOTH EYES Last administered on 01/12/19 20:39; Admin Dose 1 DROP; Start 01/10/19 at 21:00 Levothyroxine Sodium (Synthroid) 125 mcg BEFORE BREAKFAST PO Last administered on 01/13/19 05:13; Admin Dose 125 MCG; Start 01/11/19 at 07:00 Metoprolol Tartrate (Lopressor) 50 mg BID PO Last administered on 01/13/19 08:46; Admin Dose 50 MG; Start 01/10/19 at 21:00 Nitroglycerin (Nitroglycerin (Sl Tab) 0.4 Mg) 0.4 tab Q5M PRN SL CHEST PAIN; Start 01/10/19 at 19:30 Nystatin/ Triamcinolone Acetonide (Mycolog Cr) 1 applic BID TOP Last administered on 01/13/19 08:47; Admin Dose 1 APPLIC; Start 01/10/19 at 21:00 Nystatin (Nystatin Powder) 1 applic BID TOP Last administered on 01/13/19 08:46; Admin Dose 1 APPLIC; Start 01/10/19 at 21:00 Pantoprazole (Protonix Tab) 40 mg DAILY@06 PO Last administered on 01/13/19 05:13; Admin Dose 40 MG; Start 01/11/19 at 06:00 Polyethylene Glycol (Miralax) 17 gm DAILY PO Last administered on 01/13/19 08:43; Admin Dose 17 GM; Start 01/11/19 at 09:00 Pregabalin (Lyrica) 25 mg TID PO Last administered on 01/13/19 13:06; Admin Dose 25 MG; Start 01/10/19 at 21:00 IV Flush (NS 3 ml) 3 ml PER PROTOCOL IV ; Start 01/10/19 at 19:30 Terazosin HCl (Hytrin) 10 mg HS PO Last administered on 01/12/19at 20:40; Admin Dose 10 MG; Start 01/10/19 at 21:00 Miscellaneous Information 1 ea NOTE XX ; Start 01/10/19 at 19:30 Glucose (Glutose) 15 gm Q15M PRN PO DECREASED GLUCOSE; Start 01/10/19 at 19:30 Glucose (Glutose) 22.5 gm Q15M PRN PO DECREASED GLUCOSE; Start 01/10/19 at 19:30 Dextrose (D50w Syringe) 25 ml Q15M PRN IV DECREASED GLUCOSE; Start 01/10/19 at 19:30 Dextrose (D50w Syringe) 50 ml Q15M PRN IV DECREASED GLUCOSE; Start 01/10/19 at 19:30 Glucagon (Glucagen) 1 mg Q15M PRN IM DECREASED GLUCOSE; Start 01/10/19 at 19:30 Glucose (Glutose) 15 gm Q15M PRN BUCCAL DECREASED GLUCOSE; Start 01/10/19 at 19:30 Multivitamins Therapeutic (Theragran) 1 tab DAILY PO Last administered on 01/13/19 08:45; Admin Dose 1 TAB; Start 01/12/19 at 09:00 Zinc Sulfate (Zinc Sulfate) 220 mg DAILY PO Last administered on 01/13/19 08:45; Admin Dose 220 MG; Start 01/12/19 at 09:00 Ascorbic Acid (Vitamin C) 250 mg DAILY PO Last administered on 01/13/19 08:45; Admin Dose 250 MG; Start 01/12/19 at 13:00 Doxycycline Hyclate (Vibramycin) 100 mg BID PO Last administered on 01/13/19 08:45; Admin Dose 100 MG; Start 01/11/19 at 21:00 Albuterol/ Ipratropium (Duoneb) 3 ml Q6H RESP THERAPY HHN Last administered on 01/13/19 14:53; Admin Dose 3 ML; Start 01/11/19 at 20:00 Levofloxacin (Levaquin) 250 mg Q2D@0600 PO ; Start 01/14/19 at 06:00 Multi-Ingredient Ointment (Aquaphor Oint 52.5 Gm) 1 applic BID TOP Last administered on 01/13/19at 14:59; Admin Dose 1 APPLIC; Start 01/13/19 at 13:30 Aspirin (Aspirin) 81 mg DAILY PO ; Start 01/14/19 at 09:00 Ferrous Sulfate (Ferrous Sulfate (Ec)) 325 mg WITH MEALS PO ; Start 01/13/19 at 17:35 IVAN AKHTAR MD Jan 13, 2019 16:49
[2019-01-13] MEDS ORDERED: FUROSEMIDE 20 MG INJ IV SCH (17:00)
[2019-01-13] MEDS ORDERED: BISACODYL 10 MG SUPP PR PRN (17:00)
[2019-01-13 20:00] VITALS: BP 158/65; PULSE 78; RESP 18
[2019-01-13] MEDS: SENNA TAB PO SCH (21:21)
[2019-01-13] MEDS: LATANOPROST 0.005% 2.5 ML OPH BOTH EYES SCH (21:21)
[2019-01-13] MEDS: ATORVASTATIN 40 MG TAB PO SCH (21:22)
[2019-01-13] MEDS: TERAZOSIN 5 MG CAP PO SCH (21:22)
[2019-01-14 02:00] VITALS: BP 128/60; PULSE 90; RESP 18
[2019-01-14] MEDS: ACCU-CHEK XX SCH ×5 (02:00→21:51)
[2019-01-14] MEDS: ALBUTEROL/IPRATROPIUM (NEB) 3 ML AMP HHN SCH ×4 (02:45→20:52)
[2019-01-14] MEDS ORDERED: LEVOFLOXACIN 250 MG TAB PO SCH (06:00)
[2019-01-14] MEDS: PANTOPRAZOLE (EC) 40 MG TAB PO SCH (06:09)
[2019-01-14] MEDS: LEVOTHYROXINE 125 MCG TAB PO SCH (06:09)
[2019-01-14 07:00] VITALS: BP 134/63; PULSE 93; RESP 18
[2019-01-14] MEDS: HYDROCODONE/APAP (5/325) TAB PO PRN (08:41)
[2019-01-14] MEDS: MULTIVITAMINS THERAPEUTIC TAB PO SCH (08:41)
[2019-01-14] MEDS: PREGABALIN 25 MG CAP PO SCH ×3 (08:42→21:41)
[2019-01-14] MEDS: ZINC SULFATE 220 MG CAP PO SCH (08:42)
[2019-01-14] MEDS: FERROUS SULFATE (EC) 325 MG TAB PO SCH ×3 (08:42→17:37)
[2019-01-14] MEDS: ASCORBIC ACID 250 MG TAB PO SCH (08:42)
[2019-01-14] MEDS: DOCUSATE SODIUM 100 MG CAP PO SCH ×2 (08:42→21:41)
[2019-01-14] MEDS: DOXYCYCLINE 100 MG TAB PO SCH (08:42)
[2019-01-14] MEDS: INSULIN ASPART [NOVOLOG] 3 ML PEN SC SCH ×4 (08:42→21:59)
[2019-01-14] MEDS: ASPIRIN 81 MG TAB PO SCH (08:42)
[2019-01-14] MEDS: FOLIC ACID 1 MG TAB PO SCH (08:42)
[2019-01-14] MEDS: METOPROLOL 50 MG TAB PO SCH ×2 (08:47→21:42)
[2019-01-14] MEDS: FUROSEMIDE 20 MG TAB PO SCH (08:48)
[2019-01-14] MEDS: POLYETHYLENE GLYCOL 17 GM PACKET PO SCH (08:48)
[2019-01-14] MEDS: AQUAPHOR 52.5 GM OINT TOP SCH ×2 (08:53→21:48)
[2019-01-14] MEDS: NYSTATIN 30 GM POWDER BTL TOP SCH ×2 (08:54→21:49)
[2019-01-14] MEDS: NYSTATIN/TRIAMCINOLONE 15 GM CR TOP SCH ×2 (08:54→21:48)
[2019-01-14] MEDS: BALSAM PERU/CASTOR OIL 60 GM TUBE TOP SCH ×2 (08:54→21:49)
--- NOTE | 2019-01-14 10:35 | CONS ---
Consult Date/Type/Reason Admit Date/Time Jan 10, 2019 at 17:45 Initial Consult Date Requesting Provider: IVAN AKHTAR MD Date/Time of Note DATE: 01/14/19 TIME: 10:33 Subjective NO acute events - pt stable now- s/p blood transfusion - better now. ROS: No fever, no chills, no nausea, no vomiting, no diarrhea/constipation No recent weight changes No chest pain, no PND, no orthopnea - mild SOB No dizziness, blurred vision No thirst, no heat or cold intolerance Objective Vitals Vital Signs Date Temp Pulse Resp B/P (MAP) Pulse Ox O2 O2 Flow FiO2 Time Delivery Rate 01/14/19 99.3 93 18 134/63 98 07:00 (86) 01/14/19 2.0 02:46 01/14/19 Nasal 02:46 Cannula Intake and Output 01/13/19 01/13/19 01/14/19 1515:00 23:00 07:00 IntakeIntake Total 540 ml OutputOutput Total 450 ml 1150 ml BalanceBalance 540 ml -450 ml -1150 ml Exam General: WN/WD/NAD, AOx 2-3 HEENT: Unicetric/atraumatic/EOMI (follows commands) NECK: JVD elevated, no thyromegaly Lymph: no lymphadenopathy HEART: regular with no S3, II/ systolic murmur at apex, mild SOB LUNGS: Coarse sounds ABD: soft, NT, ND, +BS : Intact Neuro: non focal - arthritics SKIN: chronic changes EXT: trace edema Results/Medications Result Diagram: 01/14/19 0655 01/14/19 0655 Results 24 hrs Laboratory Tests Test 01/13/19 12:05 01/13/19 17:15 01/13/19 21:26 01/14/19 02:37 Bedside Glucose 189 169 198 136 Test 01/14/19 06:55 01/14/19 08:34 White Blood Count 17.1 H Red Blood Count 2.65 L Hemoglobin 7.8 L Hematocrit 24.1 L Mean Corpuscular 90.9 Volume Mean Corpuscular 29.4 Hemoglobin Mean Corpuscular 32.4 Hemoglobin Concent Red Cell 17.6 H Distribution Width Platelet Count 256 Mean Platelet Volume 10.3 Immature 1.900 H Granulocytes % Neutrophils % 76.8 Lymphocytes % 10.9 L Monocytes % 9.0 Eosinophils % 1.3 Basophils % 0.1 Nucleated Red Blood 0.0 Cells % Immature 0.320 H Granulocytes # Neutrophils # 13.1 H Lymphocytes # 1.9 Monocytes # 1.5 H Eosinophils # 0.2 Basophils # 0.0 Nucleated Red Blood 0.0 Cells # Sodium Level 136 Potassium Level 4.5 Chloride Level 106 Carbon Dioxide Level 22 Anion Gap 8 Blood Urea Nitrogen 43 H Creatinine 1.50 H Est Glomerular Filtrat Rate mL/min Glucose Level 120 Calcium Level 8.8 Phosphorus Level 2.6 Magnesium Level 1.6 L Bedside Glucose 134 Home Meds Active Scripts Apixaban* (Eliquis*) 5 Mg Tablet, 2.5 MG PO BID for 30 Days, TAB Prov:IVAN AKHTAR MD 12/20/18 Metoprolol Tartrate* (Lopressor*) 50 Mg Tab, 50 MG PO BID for 30 Days, TAB Prov:COOPER CARO 12/20/18 Reported Medications Furosemide* (Lasix*) 20 Mg Tablet, 20 MG PO BID, TAB 01/05/19 Polyethylene Glycol* (Miralax*) 17 Gm Powd.pack, 17 GM PO DAILY, #30 PACKET 12/15/18 Nifedipine* (Nifedipine ER*) 60 Mg Tablet.sa, 60 MG PO DAILY, TAB.SA 12/15/18 Bisacodyl* (Bisacodyl*) 5 Mg Tablet.dr, 10 MG PO BID PRN for CONSTIPATION, TAB 12/15/18 Pregabalin* (Lyrica*) 25 Mg Capsule, 25 MG PO TID, CAP 12/15/18 Bimatoprost* (Lumigan*) 0.01%-5 Ml Opht Drops, 1 DROP BOTH EYES HS, EA 03/02/18 Cetirizine Hcl* (Cetirizine Hcl*) 10 Mg Tablet, 10 MG PO DAILY, #30 TAB 03/02/18 Insulin Glargine* (Lantus*) 100 Unit/Ml Soln, 10 UNIT SC QHS, #1 VIAL 03/02/18 Ergocalciferol (Vitamin D2) (VITAMIN D2) 2,000 Unit Tablet, 2000 UNIT PO DAILY, TAB 03/02/18 Famotidine* (Famotidine*) 20 Mg Tablet, 20 MG PO DAILY, #30 TAB 03/02/18 Ferrous Sulfate* (Ferrous Sulfate*) 325 Mg Tabec, 325 MG PO BID, TAB 03/02/18 Nitroglycerin* (Nitrostat*) 0.4 Mg Tab.subl, 0.4 MG SL Q5MIN PRN for CHEST PAIN, BOTTLE 03/02/18 Terazosin Hcl* (Terazosin Hcl*) 10 Mg Capsule, 10 MG PO HS, CAP 03/02/18 Levothyroxine Sodium* (Levoxyl*) 125 Mcg Tablet, 125 MCG PO BEFORE BREAKFAST, #30 TAB 03/02/18 Allopurinol* (Allopurinol*) 100 Mg Tablet, 100 MG PO BID, TAB 03/02/18 Atorvastatin* (Atorvastatin*) 40 Mg Tablet, 40 MG PO QHS, #30 TAB 03/02/18 Folic Acid* (Folic Acid*) 1 Mg Tablet, 1 MG PO DAILY, TAB 03/02/18 Medications Current Medications Docusate Sodium (Colace) 100 mg BID PO Last administered on 01/14/19 08:42; Admin Dose 100 MG; Start 01/10/19 at 21:00 Senna (Senokot) 1 tab HS PO Last administered on 01/13/19 21:21; Admin Dose 1 TAB; Start 01/10/19 at 21:00 Lactulose (Enulose) 20 gm DAILY PRN PO CONSTIPATION Last administered on 01/12/19at 15:37; Admin Dose 20 GM; Start 01/10/19 at 19:00 Acetaminophen (Tylenol Tab) 650 mg Q4H PRN PO PAIN Last administered on 01/12/19 17:56; Admin Dose 650 MG; Start 01/10/19 at 19:00 [facility] This patient ramirez... PRN PRN XX WOUND CARE; Start 01/10/19 at 19:00 Diagnostic Test (Pha) (Accu-Chek) 1 ea AC MEALS AND BEDTIME XX Last admini stered on 01/14/19 08:42; Admin Dose 1 EA; Start 01/10/19 at 21:00 Diagnostic Test (Pha) (Accu-Chek) 1 ea 02 XX Last administered on 01/14/19 02:00; Admin Dose 1 EA; Start 01/11/19 at 02:00 Albuterol/ Ipratropium (Duoneb) 3 ml Q2H RESP THERAPY PRN HHN SHORTNESS OF BREATH Last administered on 01/11/19 09:39; Admin Dose 3 ML; Start 01/10/19 at 19:30 Atorvastatin Calcium (Lipitor) 40 mg QHS PO Last administered on 01/13/19 21:22; Admin Dose 40 MG; Start 01/10/19 at 21:00 Bisacodyl (Dulcolax) 10 mg BID PRN PO CONSTIPATION; Start 01/10/19 at 19:30 Folic Acid (Folic Acid) 1 mg DAILY PO Last administered on 01/14/19 08:42; Admin Dose 1 MG; Start 01/11/19 at 09:00 Insulin Aspart (Novolog Insulin Pen) NOVOLOG *MILD* ALGORITHM WITH MEALS BEDTIME SC Last administered on 01/13/19 21:30; Admin Dose 1 UNIT; Start 01/10/19 at 21:00 Insulin Glargine (Lantus) 10 units QHS SC Last administered on 01/10/19 21:59; Admin Dose 10 UNITS; Start 01/10/19 at 21:00; Status Hold Latanoprost (Xalatan) 1 drop HS BOTH EYES Last administered on 01/13/19 21:21; Admin Dose 1 DROP; Start 01/10/19 at 21:00 Levothyroxine Sodium (Synthroid) 125 mcg BEFORE BREAKFAST PO Last administered on 01/14/19 06:09; Admin Dose 125 MCG; Start 01/11/19 at 07:00 Metoprolol Tartrate (Lopressor) 50 mg BID PO Last administered on 01/14/19 08:47; Admin Dose 50 MG; Start 01/10/19 at 21:00 Nitroglycerin (Nitroglycerin (Sl Tab) 0.4 Mg) 0.4 tab Q5M PRN SL CHEST PAIN; Start 01/10/19 at 19:30 Nystatin/ Triamcinolone Acetonide (Mycolog Cr) 1 applic BID TOP Last administered on 01/14/19 08:54; Admin Dose 1 APPLIC; Start 01/10/19 at 21:00 Nystatin (Nystatin Powder) 1 applic BID TOP Last administered on 01/14/19 08:54; Admin Dose 1 APPLIC; Start 01/10/19 at 21:00 Pantoprazole (Protonix Tab) 40 mg DAILY@06 PO Last administered on 01/14/19 06:09; Admin Dose 40 MG; Start 01/11/19 at 06:00 Polyethylene Glycol (Miralax) 17 gm DAILY PO Last administered on 01/14/19 08:48; Admin Dose 17 GM; Start 01/11/19 at 09:00 Pregabalin (Lyrica) 25 mg TID PO Last administered on 01/14/19 08:42; Admin Dose 25 MG; Start 01/10/19 at 21:00 IV Flush (NS 3 ml) 3 ml PER PROTOCOL IV ; Start 01/10/19 at 19:30 Terazosin HCl (Hytrin) 10 mg HS PO Last administered on 01/13/19 21:22; Admin Dose 10 MG; Start 01/10/19 at 21:00 Miscellaneous Information 1 ea NOTE XX ; Start 01/10/19 at 19:30 Glucose (Glutose) 15 gm Q15M PRN PO DECREASED GLUCOSE; Start 01/10/19 at 19:30 Glucose (Glutose) 22.5 gm Q15M PRN PO DECREASED GLUCOSE; Start 01/10/19 at 19:30 Dextrose (D50w Syringe) 25 ml Q15M PRN IV DECREASED GLUCOSE; Start 01/10/19 at 19:30 Dextrose (D50w Syringe) 50 ml Q15M PRN IV DECREASED GLUCOSE; Start 01/10/19 at 19:30 Glucagon (Glucagen) 1 mg Q15M PRN IM DECREASED GLUCOSE; Start 01/10/19 at 19:30 Glucose (Glutose) 15 gm Q15M PRN BUCCAL DECREASED GLUCOSE; Start 01/10/19 at 19:30 Multivitamins Therapeutic (Theragran) 1 tab DAILY PO Last administered on 01/14/19 08:41; Admin Dose 1 TAB; Start 01/12/19 at 09:00 Zinc Sulfate (Zinc Sulfate) 220 mg DAILY PO Last administered on 01/14/19 08:42; Admin Dose 220 MG; Start 01/12/19 at 09:00 Ascorbic Acid (Vitamin C) 250 mg DAILY PO Last administered on 01/14/19 08:42; Admin Dose 250 MG; Start 01/12/19 at 13:00 Doxycycline Hyclate (Vibramycin) 100 mg BID PO Last administered on 01/14/19 08:42; Admin Dose 100 MG; Start 01/11/19 at 21:00 Albuterol/ Ipratropium (Duoneb) 3 ml Q6H RESP THERAPY HHN Last administered on 01/14/19 02:45; Admin Dose 3 ML; Start 01/11/19 at 20:00 Levofloxacin (Levaquin) 250 mg Q2D@0600 PO Last administered on 01/14/19 06:09 ; Admin Dose 250 MG; Start 01/14/19 at 06:00 Multi-Ingredient Ointment (Aquaphor Oint 52.5 Gm) 1 applic BID TOP Last administered on 01/14/19 08:53; Admin Dose 1 APPLIC; Start 01/13/19 at 13:30 Aspirin (Aspirin) 81 mg DAILY PO Last administered on 01/14/19 08:42; Admin Dose 81 MG; Start 01/14/19 at 09:00 Ferrous Sulfate (Ferrous Sulfate (Ec)) 325 mg WITH MEALS PO Last administered on 01/14/19 08:42; Admin Dose 325 MG; Start 01/13/19 at 17:35 Bisacodyl (Dulcolax Supp) 10 mg DAILY PRN [place] CONSTIPATION; Start 01/13/19 at 17:00 Furosemide (Lasix) 20 mg DAILY PO Last administered on 01/14/19 08:48; Admin Dose 20 MG; Start 01/14/19 at 09:00 Acetaminophen/ Hydrocodone Bitart ([place] (5/325)) 1 tab Q4 PRN PO MODERATE PAIN LEVEL 4-6; Start 01/14/19 at 10:30; Status UNV Acetaminophen/ Hydrocodone Bitart ([place] (5/325)) 2 tab Q4H PRN PO SEVERE PAIN LEVEL 7-10; Start 01/14/19 at 10:30; Status UNV Magnesium Oxide (Mag-Ox 400) 400 mg TID PO ; Start 01/14/19 at 13:00; Stop 01/14/19 at 23:00; Status UNV Assessment/Plan Hospital Course (Demo Recall) 1. Atrial fibrillation, currently rate controlled.-off anticoagulation with low H/H - rate controlled - H/H better. Rate controlled. 2. Possible congestive heart failure by chest x-ray, which will be diastolic, acute on chronic by most recent echo with an EF of 60%- tolerating blood Tx so far. Stable fluid status. 3. Tricuspid regurgitation, moderate by most recent echo. 4. Acute on chronic renal failure - Cr at 2.25 - will monitor clinically now. STABLE. 5. Possible pneumonia- on anti-Bx. Better now. 6. History of coronary artery disease, status post coronary artery bypass graft surgery.On meds. 7. Dyslipidemia. 8. Rheumatoid arthritis - on meds. 9. Groin cellulitis. 10. Anemia-worsening requiring transfusions PRBC's.Now post-op s/p endoscopy ? findings - blood tX now. S/p Blood Tx - responded appropriately. Hg at 7.8 - treated. 11. Diabetes mellitus. LOU PATINO MD Jan 14, 2019 10:35
[2019-01-14] MEDS ORDERED: MAGNESIUM SULFATE 2 GM/50 ML 50 ML IVPB ONE (11:30)
[2019-01-14] MEDS: ACETAMINOPHEN 325 MG TAB PO PRN ×2 (11:39→21:47)
[2019-01-14] MEDS: MAGNESIUM OXIDE 400 MG TAB PO SCH ×2 (12:20→21:42)
[2019-01-14] MEDS ORDERED: HYDROCODONE/APAP (5/325) TAB PO PRN (13:00)
--- NOTE | 2019-01-14 13:05 | PN ---
Date/Time of Note Date/Time of Note DATE: 01/14/19 TIME: 13:03 Subjective C/o joint pain Objective Vital Signs Date Temp Pulse Resp B/P (MAP) Pulse Ox O2 O2 Flow FiO2 Time Delivery Rate 01/14/19 Nasal 2.0 08:30 Cannula 01/14/19 99.3 93 18 134/63 98 07:00 (86) Intake and Output 01/13/19 01/13/19 01/14/19 1515:00 23:00 07:00 IntakeIntake Total 540 ml OutputOutput Total 450 ml 1150 ml BalanceBalance 540 ml -450 ml -1150 ml Exam pulm-cta max/mod amb Results/Medications Result Diagram: 01/14/1955 01/14/19 0655 Results 24 hrs Laboratory Tests Test 01/13/19 17:15 01/13/19 21:26 01/14/19 02:37 01/14/19 06:55 Bedside Glucose 169 198 136 White Blood Count 17.1 H Red Blood Count 2.65 L Hemoglobin 7.8 L Hematocrit 24.1 L Mean Corpuscular 90.9 Volume Mean Corpuscular 29.4 Hemoglobin Mean Corpuscular 32.4 Hemoglobin Concent Red Cell 17.6 H Distribution Width Platelet Count 256 Mean Platelet Volume 10.3 Immature 1.900 H Granulocytes % Neutrophils % 76.8 Lymphocytes % 10.9 L Monocytes % 9.0 Eosinophils % 1.3 Basophils % 0.1 Nucleated Red Blood 0.0 Cells % Immature 0.320 H Granulocytes # Neutrophils # 13.1 H Lymphocytes # 1.9 Monocytes # 1.5 H Eosinophils # 0.2 Basophils # 0.0 Nucleated Red Blood 0.0 Cells # Sodium Level 136 Potassium Level 4.5 Chloride Level 106 Carbon Dioxide Level 22 Anion Gap 8 Blood Urea Nitrogen 43 H Creatinine 1.50 H Est Glomerular Filtrat Rate mL/min Glucose Level 120 Calcium Level 8.8 Phosphorus Level 2.6 Magnesium Level 1.6 L Test 01/14/19 08:34 01/14/19 12:02 Bedside Glucose 134 198 Medications Current Medications Docusate Sodium (Colace) 100 mg BID PO Last administered on 01/14/19at 08:42; Admin Dose 100 MG; Start 01/10/19 at 21:00 Senna (Senokot) 1 tab HS PO Last administered on 01/13/19at 21:21; Admin Dose 1 TAB; Start 01/10/19 at 21:00 Lactulose (Enulose) 20 gm DAILY PRN PO CONSTIPATION Last administered on 9at 15:37; Admin Dose 20 GM; Start 01/10/19 at 19:00 Acetaminophen (Tylenol Tab) 650 mg Q4H PRN PO PAIN Last administered on 01/14/19 11:39; Admin Dose 650 MG; Start 01/10/19 at 19:00 Miscellaneous Information (Pending Santyl Order For Wound Care) This patient ramirez... PRN PRN XX WOUND CARE; Start 01/10/19 at 19:00 Diagnostic Test (Pha) (Accu-Chek) 1 ea AC MEALS AND BEDTIME XX Last administered on 01/14/19 12:03; Admin Dose 1 EA; Start 01/10/19 at 21:00 Diagnostic Test (Pha) (Accu-Chek) 1 ea 02 XX Last administered on 01/14/19 02:00; Admin Dose 1 EA; Start 01/11/19 at 02:00 Albuterol/ Ipratropium (Duoneb) 3 ml Q2H RESP THERAPY PRN HHN SHORTNESS OF BREATH Last administered on 01/11/19 09:39; Admin Dose 3 ML; Start 01/10/19 at 19:30 Atorvastatin Calcium (Lipitor) 40 mg QHS PO Last administered on 01/13/19 21:22; Admin Dose 40 MG; Start 01/10/19 at 21:00 Bisacodyl (Dulcolax) 10 mg BID PRN PO CONSTIPATION; Start 01/10/19 at 19:30 Folic Acid (Folic Acid) 1 mg DAILY PO Last administered on 01/14/19 08:42; Admin Dose 1 MG; Start 01/11/19 at 09:00 Insulin Aspart (Novolog Insulin Pen) NOVOLOG *MILD* ALGORITHM WITH MEALS BEDTIME SC Last administered on 01/14/19 12:04; Admin Dose 2 UNIT; Start 01/10/19 at 21:00 Insulin Glargine (Lantus) 10 units QHS SC Last administered on 01/10/19 21:59; Admin Dose 10 UNITS; Start 01/10/19 at 21:00; Status Hold Latanoprost (Xalatan) 1 drop HS BOTH EYES Last administered on 01/13/19 21:21; Admin Dose 1 DROP; Start 01/10/19 at 21:00 Levothyroxine Sodium (Synthroid) 125 mcg BEFORE BREAKFAST PO Last administered on 01/14/19 06:09; Admin Dose 125 MCG; Start 01/11/19 at 07:00 Metoprolol Tartrate (Lopressor) 50 mg BID PO Last administered on 01/14/19 08:47; Admin Dose 50 MG; Start 01/10/19 at 21:00 Nitroglycerin (Nitroglycerin (Sl Tab) 0.4 Mg) 0.4 tab Q5M PRN SL CHEST PAIN; Start 01/10/19 at 19:30 Nystatin/ Triamcinolone Acetonide (Mycolog Cr) 1 applic BID TOP Last administered on 01/14/19 08:54; Admin Dose 1 APPLIC; Start 01/10/19 at 21:00 Nystatin (Nystatin Powder) 1 applic BID TOP Last administered on 01/14/19 08:5 4; Admin Dose 1 APPLIC; Start 01/10/19 at 21:00 Pantoprazole (Protonix Tab) 40 mg DAILY@06 PO Last administered on 01/14/19 06:09; Admin Dose 40 MG; Start 01/11/19 at 06:00 Polyethylene Glycol (Miralax) 17 gm DAILY PO Last administered on 01/14/19 08:48; Admin Dose 17 GM; Start 01/11/19 at 09:00 Pregabalin (Lyrica) 25 mg TID PO Last administered on 01/14/19 12:19; Admin Dose 25 MG; Start 01/10/19 at 21:00 IV Flush (NS 3 ml) 3 ml PER PROTOCOL IV ; Start 01/10/19 at 19:30 Terazosin HCl (Hytrin) 10 mg HS PO Last administered on 01/13/19 21:22; Admin Dose 10 MG; Start 01/10/19 at 21:00 Miscellaneous Information 1 ea NOTE XX ; Start 01/10/19 at 19:30 Glucose (Glutose) 15 gm Q15M PRN PO DECREASED GLUCOSE; Start 01/10/19 at 19:30 Glucose (Glutose) 22.5 gm Q15M PRN PO DECREASED GLUCOSE; Start 01/10/19 at 19:30 Dextrose (D50w Syringe) 25 ml Q15M PRN IV DECREASED GLUCOSE; Start 01/10/19 at 19:30 Dextrose (D50w Syringe) 50 ml Q15M PRN IV DECREASED GLUCOSE; Start 01/10/19 at 19:30 Glucagon (Glucagen) 1 mg Q15M PRN IM DECREASED GLUCOSE; Start 01/10/19 at 19:30 Glucose (Glutose) 15 gm Q15M PRN BUCCAL DECREASED GLUCOSE; Start 01/10/19 at 19:30 Multivitamins Therapeutic (Theragran) 1 tab DAILY PO Last administered on 01/14/19 08:41; Admin Dose 1 TAB; Start 01/12/19 at 09:00 Zinc Sulfate (Zinc Sulfate) 220 mg DAILY PO Last administered on 01/14/19 08:42; Admin Dose 220 MG; Start 01/12/19 at 09:00 Ascorbic Acid (Vitamin C) 250 mg DAILY PO Last administered on 01/14/19 08:42; Admin Dose 250 MG; Start 01/12/19 at 13:00 Doxycycline Hyclate (Vibramycin) 100 mg BID PO Last administered on 01/14/19 08:42; Admin Dose 100 MG; Start 01/11/19 at 21:00 Albuterol/ Ipratropium (Duoneb) 3 ml Q6H RESP THERAPY HHN Last administered on 01/14/19 02:45; Admin Dose 3 ML; Start 01/11/19 at 20:00 Levofloxacin (Levaquin) 250 mg Q2D@0600 PO Last administered on 01/14/19 06:09; Admin Dose 250 MG; Start 01/14/19 at 06:00 Multi-Ingredient Ointment (Aquaphor Oint 52.5 Gm) 1 applic BID TOP Last administered on 01/14/19 08:53; Admin Dose 1 APPLIC; Start 01/13/19 at 13:30 Aspirin (Aspirin) 81 mg DAILY PO Last administered on 01/14/19 08:42; Admin Dose 81 MG; Start 01/14/19 at 09:00 Ferrous Sulfate (Ferrous Sulfate (Ec)) 325 mg WITH MEALS PO Last administered on 01/14/19 12:19; Admin Dose 325 MG; Start 01/13/19 at 17:35 Bisacodyl (Dulcolax Supp) 10 mg DAILY PRN IN CONSTIPATION; Start 01/13/19 at 17:00 Furosemide (Lasix) 20 mg DAILY PO Last administered on 01/14/19at 08:48; Admin Dose 20 MG; Start 01/14/19 at 09:00 Acetaminophen/ Hydrocodone Bitart ([place] (5/325)) 1 tab Q4H PRN PO MODERATE PAIN LEVEL 4-6; Start 01/14/19 at 13:00 Acetaminophen/ Hydrocodone Bitart ([place] (5/325)) 2 tab Q4H PRN PO SEVERE PAIN LEVEL 7-10; Start 01/14/19 at 13:00 Magnesium Oxide (Mag-Ox 400) 400 mg TID PO Last administered on 01/14/19at 12:20; Admin Dose 400 MG; Start 01/14/19 at 13:00; Stop 01/15/19 at 12:00 Assessment/Plan Additional Assessment/Plan 1. Severe rheumatoid arthritis affecting multiple joints with decreased range of motion; Critical illness myopathy. Activities as tolerated ID- sepsis, pneumonia- WBC trending upward. abx per IM Congestive heart failure. Degenerative disk disease. Coronary artery disease with history of coronary artery bypass graft x2; afib Peripheral vascular disease. Chronic obstructive pulmonary disease. Acute on chronic kidney disease. Hypertension. Hyperlipidemia. Dermatologic irritation with skin excoriation, moisture related fissure in the sacral region, and diffuse epidermal desquamation. Gastritis. Urinary retention with a Wade catheter. Diabetes mellitus type 2, labile. DEEPALI MARC MD Jan 14, 2019 13:05
[2019-01-14 14:00] VITALS: BP 137/55; PULSE 79; RESP 18
--- NOTE | 2019-01-14 14:16 | CONS ---
Assessment/Plan Assessment/Plan Hospital Course (Demo Recall) Patient is ambulating with physical therapy, family at bedside, no fevers overnight. WBC 17.1 platelets 76.8 BUN 43 creatinine 1.50 Antimicrobials: Doxycycline, Levaquin Allergy: Penicillin, sulfa Physical examination: Obese well-developed chronically ill-appearing - [place] man who is awake in no distress. Head atraumatic normocephalic sclera nonicteric. Neck is supple chest rise symmetrical breath sounds diminished bases. Heart: S1-S2. Abdomen obese soft bowel sounds present extremities without cyanosis, bilateral edema Assessment: 1. S/p sepsis, present on admission 2. Pneumonia, resolving 3. Coronary artery disease/history of CABG 4. Advanced rheumatoid arthritis 5. Chronic atrial fibrillation 6. Diabetes 7. BPH 8. Bilateral groin fungal cellulitis 9. Acute on chronic anemia===> s/p EGD/colonoscopy 01/09/19 10. Right epididymitis Plan: Clinically stable, white blood cell count today went up but patient is afebrile and looks fine, no diarrhea per report, he has Wade catheter and recent urine culture was negative. We will will discontinue antibiotics and reculture him in 24 hours. Check pro-calcitonin Consultation Date/Type/Reason Admit Date/Time Jan 10, 2019 at 17:45 Initial Consult Date Type of Consult id Requesting Provider: IVAN AKHTAR MD Date/Time of Note DATE: 01/14/19 TIME: 14:14 Exam/Review of Systems Exam Vitals Vital Signs Date Temp Pulse Resp B/P (MAP) Pulse Ox O2 O2 Flow FiO2 Time Delivery Rate 01/14/19 Nasal 2.0 08:30 Cannula 01/14/19 99.3 93 18 134/63 98 07:00 (86) Intake and Output 01/13/19 01/13/19 01/14/19 1414:59 22:59 06:59 IntakeIntake Total 540 ml OutputOutput Total 450 ml 1150 ml BalanceBalance 540 ml -450 ml -1150 ml Results Result Diagram: 01/14/19 0655 01/14/19 0655 Results 24hrs Laboratory Tests Test 01/13/19 17:15 01/13/19 21:26 01/14/19 02:37 01/14/19 06:55 Bedside Glucose 169 198 136 White Blood Count 17.1 H Red Blood Count 2.65 L Hemoglobin 7.8 L Hematocrit 24.1 L Mean Corpuscular 90.9 Volume Mean Corpuscular 29.4 Hemoglobin Mean Corpuscular 32.4 Hemoglobin Concent Red Cell 17.6 H Distribution Width Platelet Count 256 Mean Platelet Volume 10.3 Immature 1.900 H Granulocytes % Neutrophils % 76.8 Lymphocytes % 10.9 L Monocytes % 9.0 Eosinophils % 1.3 Basophils % 0.1 Nucleated Red Blood 0.0 Cells % Immature 0.320 H Granulocytes # Neutrophils # 13.1 H Lymphocytes # 1.9 Monocytes # 1.5 H Eosinophils # 0.2 Basophils # 0.0 Nucleated Red Blood 0.0 Cells # Sodium Level 136 Potassium Level 4.5 Chloride Level 106 Carbon Dioxide Level 22 Anion Gap 8 Blood Urea Nitrogen 43 H Creatinine 1.50 H Est Glomerular Filtrat Rate mL/min Glucose Level 120 Calcium Level 8.8 Phosphorus Level 2.6 Magnesium Level 1.6 L Test 01/14/19 08:34 01/14/19 12:02 Bedside Glucose 134 198 Medications Medication Current Medications Docusate Sodium (Colace) 100 mg BID PO Last administered on 01/14/19 08:42; Admin Dose 100 MG; Start 01/10/19 at 21:00 Senna (Senokot) 1 tab HS PO Last administered on 01/13/19 21:21; Admin Dose 1 TAB; Start 01/10/19 at 21:00 Lactulose (Enulose) 20 gm DAILY PRN PO CONSTIPATION Last administered on 01/12/19 15:37; Admin Dose 20 GM; Start 01/10/19 at 19:00 Acetaminophen (Tylenol Tab) 650 mg Q4H PRN PO PAIN Last administered on 01/14/19 11:39; Admin Dose 650 MG; Start 01/10/19 at 19:00 Miscellaneous Information (Pending Santyl Order For Wound Care) This patient ramirez ... PRN PRN XX WOUND CARE; Start 01/10/19 at 19:00 Diagnostic Test (Pha) (Accu-Chek) 1 ea AC MEALS AND BEDTIME XX Last administered on 01/14/19 12:03; Admin Dose 1 EA; Start 01/10/19 at 21:00 Diagnostic Test (Pha) (Accu-Chek) 1 ea 02 XX Last administered on 01/14/19 02:00; Admin Dose 1 EA; Start 01/11/19 at 02:00 Albuterol/ Ipratropium (Duoneb) 3 ml Q2H RESP THERAPY PRN HHN SHORTNESS OF MARV ATH Last administered on 01/11/19 09:39; Admin Dose 3 ML; Start 01/10/19 at 19:30 Atorvastatin Calcium (Lipitor) 40 mg QHS PO Last administered on 01/13/19 21:22; Admin Dose 40 MG; Start 01/10/19 at 21:00 Bisacodyl (Dulcolax) 10 mg BID PRN PO CONSTIPATION; Start 01/10/19 at 19:30 Folic Acid (Folic Acid) 1 mg DAILY PO Last administered on 01/14/19 08:42; Admin Dose 1 MG; Start 01/11/19 at 09:00 Insulin Aspart (Novolog Insulin Pen) NOVOLOG *MILD* ALGORITHM WITH MEALS BEDTIME SC Last administered on 01/14/19 12:04; Admin Dose 2 UNIT; Start 01/10/19 at 21:00 Insulin Glargine (Lantus) 10 units QHS SC Last administered on 01/10/19 21:59; Admin Dose 10 UNITS; Start 01/10/19 at 21:00; Status Hold Latanoprost (Xalatan) 1 drop HS BOTH EYES Last administered on 01/13/19 21:21; Admin Dose 1 DROP; Start 01/10/19 at 21:00 Levothyroxine Sodium (Synthroid) 125 mcg BEFORE BREAKFAST PO Last administered on 01/14/19 06:09; Admin Dose 125 MCG; Start 01/11/19 at 07:00 Metoprolol Tartrate (Lopressor) 50 mg BID PO Last administered on 01/14/19 08:47; Admin Dose 50 MG; Start 01/10/19 at 21:00 Nitroglycerin (Nitroglycerin (Sl Tab) 0.4 Mg) 0.4 tab Q5M PRN SL CHEST PAIN; Start 01/10/19 at 19:30 Nystatin/ Triamcinolone Acetonide (Mycolog Cr) 1 applic BID TOP Last administered on 01/14/19 08:54; Admin Dose 1 APPLIC; Start 01/10/19 at 21:00 Nystatin (Nystatin Powder) 1 applic BID TOP Last administered on 4/23/19at 08:54; Admin Dose 1 APPLIC; Start 01/10/19 at 21:00 Pantoprazole (Protonix Tab) 40 mg DAILY@06 PO Last administered on 01/14/19 06:09; Admin Dose 40 MG; Start 01/11/19 at 06:00 Polyethylene Glycol (Miralax) 17 gm DAILY PO Last administered on 01/14/19 08:48; Admin Dose 17 GM; Start 01/11/19 at 09:00 Pregabalin (Lyrica) 25 mg TID PO Last administered on 01/14/19 12:19; Admin Dose 25 MG; Start 01/10/19 at 21:00 IV Flush (NS 3 ml) 3 ml PER PROTOCOL IV ; Start 01/10/19 at 19:30 Terazosin HCl (Hytrin) 10 mg HS PO Last administered on 01/13/19 21:22; Admin Dose 10 MG; Start 01/10/19 at 21:00 Miscellaneous Information 1 ea NOTE XX ; Start 01/10/19 at 19:30 Glucose (Glutose) 15 gm Q15M PRN PO DECREASED GLUCOSE; Start 01/10/19 at 19:30 Glucose (Glutose) 22.5 gm Q15M PRN PO DECREASED GLUCOSE; Start 01/10/19 at 19:30 Dextrose (D50w Syringe) 25 ml Q15M PRN IV DECREASED GLUCOSE; Start 01/10/19 at 19:30 Dextrose (D50w Syringe) 50 ml Q15M PRN IV DECREASED GLUCOSE; Start 01/10/19 at 19:30 Glucagon (Glucagen) 1 mg Q15M PRN IM DECREASED GLUCOSE; Start 01/10/19 at 19:30 Glucose (Glutose) 15 gm Q15M PRN BUCCAL DECREASED GLUCOSE; Start 01/10/19 at 19:30 Multivitamins Therapeutic (Theragran) 1 tab DAILY PO Last administered on 01/14/19 08:41; Admin Dose 1 TAB; Start 01/12/19 at 09:00 Zinc Sulfate (Zinc Sulfate) 220 mg DAILY PO Last administered on 01/14/19 08:42; Admin Dose 220 MG; Start 01/12/19 at 09:00 Ascorbic Acid (Vitamin C) 250 mg DAILY PO Last administered on 01/14/19 08:42; Admin Dose 250 MG; Start 01/12/19 at 13:00 Doxycycline Hyclate (Vibramycin) 100 mg BID PO Last administered on 01/14/19 08:42; Admin Dose 100 MG; Start 01/11/19 at 21:00 Albuterol/ Ipratropium (Duoneb) 3 ml Q6H RESP THERAPY HHN Last administered on 01/14/19 02:45; Admin Dose 3 ML; Start 01/11/19 at 20:00 Levofloxacin (Levaquin) 250 mg Q2D@0600 PO Last administered on 01/14/19 06:09; Admin Dose 250 MG; Start 01/14/19 at 06:00 Multi-Ingredient Ointment (Aquaphor Oint 52.5 Gm) 1 applic BID TOP Last administered on 01/14/19 08:53; Admin Dose 1 APPLIC; Start 01/13/19 at 13:30 Aspirin (Aspirin) 81 mg DAILY PO Last administered on 01/14/19 08:42; Admin Dose 81 MG; Start 01/14/19 at 09:00 Ferrous Sulfate (Ferrous Sulfate (Ec)) 325 mg WITH MEALS PO Last administered on 01/14/19 12:19; Admin Dose 325 MG; Start 01/13/19 at 17:35 Bisacodyl (Dulcolax Supp) 10 mg DAILY PRN [place] CONSTIPATION; Start 01/13/19 at 17:00 Furosemide (Lasix) 20 mg DAILY PO Last administered on 01/14/19 08:48; Admin Dose 20 MG; Start 01/14/19 at 09:00 Acetaminophen/ Hydrocodone Bitart ([place] (5/325)) 1 tab Q4H PRN PO MODERATE PAIN LEVEL 4-6; Start 01/14/19 at 13:00 Acetaminophen/ Hydrocodone Bitart ([place] (5/325)) 2 tab Q4H PRN PO SEVERE PAIN LEVEL 7-10; Start 01/14/19 at 13:00 Magnesium Oxide (Mag-Ox 400) 400 mg TID PO Last administered on 01/14/19 12:20; Admin Dose 400 MG; Start 01/14/19 at 13:00; Stop 01/15/19 at 12:00 LUCIAN HARKINS NP Jan 14, 2019 14:16
--- NOTE | 2019-01-14 15:26 | PN ---
Date/Time of Note Date/Time of Note DATE: 01/14/19 TIME: 15:22 Assessment/Plan VTE Prophylaxis Risk score (from Nsg)>0 risk: 8 SCD applied (from Ns): Yes Pharmacological prophylaxis: NA/contraindicated Pharm contraindication: low risk/ambulating Lines/Catheters IV Catheter Type (from Nrsg): Saline Lock Urinary Cath still in place: Yes Reason Cath still needed: urinary retention Assessment/Plan Assessment/Plan ssessment/Plan 88 y/o with 1. Recent sepsis, SOB, weakness. Pt had recent bilateral pneumonia. 2. COPD, on oxygen at home 3. Acute on chronic renal failure likely secondary to sepsis improving 4. Hypertension. 5. Hyperlipidemia. 6. Hypothyroidism. 7. Normocytic normochromic chronic anemia with recent hemoglobin drop in HG to 7.0, to day 6.9. S/p blood transfusion 8. Bilateral groin cellulitis more likely associated with mateus, patches in groin and axilla bilaterally. Back rash 9. History of rheumatoid arthritis with joint deformities. 10. Diabetes type 2. 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 Peripheral vascular disease. 13. Chronic a.fib 14. right arm edema 15 ansarca with hypoalbuminemia Assessment/Plan - worseinign leukocytosis> no fevers, per id off abx> panculture if fevers -US right arm is negative -Start on low dose Lasix and monitor kidney function iv >will get midline -DVT proph. unable to tolerate Eliquiz, SCD, restarted on aspirin -Monitor hemoglobin -GI prophylaxis Faotidine BID -pain control - Pain control with norco -c/w home meds -nyst cream BID axilla -supp. oxygen Result Diagram: 01/14/19 0655 01/14/19 0655 Results 24hrs Laboratory Tests Test 01/13/19 17:15 01/13/19 21:26 01/14/19 02:37 01/14/19 06:55 Bedside Glucose 169 198 136 White Blood Count 17.1 H Red Blood Count 2.65 L Hemoglobin 7.8 L Hematocrit 24.1 L Mean Corpuscular 90.9 Volume Mean Corpuscular 29.4 Hemoglobin Mean Corpuscular 32.4 Hemoglobin Concent Red Cell 17.6 H Distribution Width Platelet Count 256 Mean Platelet Volume 10.3 Immature 1.900 H Granulocytes % Neutrophils % 76.8 Lymphocytes % 10.9 L Monocytes % 9.0 Eosinophils % 1.3 Basophils % 0.1 Nucleated Red Blood 0.0 Cells % Immature 0.320 H Granulocytes # Neutrophils # 13.1 H Lymphocytes # 1.9 Monocytes # 1.5 H Eosinophils # 0.2 Basophils # 0.0 Nucleated Red Blood 0.0 Cells # Sodium Level 136 Potassium Level 4.5 Chloride Level 106 Carbon Dioxide Level 22 Anion Gap 8 Blood Urea Nitrogen 43 H Creatinine 1.50 H Est Glomerular Filtrat Rate mL/min Glucose Level 120 Calcium Level 8.8 Phosphorus Level 2.6 Magnesium Level 1.6 L Test 01/14/19 08:34 01/14/19 12:02 Bedside Glucose 134 198 Subjective 24 Hr Interval Summary Free Text/Dictation pain generalised Exam/Review of Systems Exam Vitals Vital Signs Date Temp Pulse Resp B/P (MAP) Pulse Ox O2 O2 Flow FiO2 Time Delivery Rate 01/14/19 74 20 99 Nasal 2.0 14:58 Cannula 01/14/19 98.3 137/55 14:00 (82) Intake and Output 01/13/19 01/13/19 01/14/19 1515:00 23:00 07:00 IntakeIntake Total 540 ml OutputOutput Total 450 ml 1150 ml BalanceBalance 540 ml -450 ml -1150 ml Exam Exam onstitutional: alert, oriented Head: normocephalic Eyes: nl conjunctiva Respiratory: normal air movement, diminished breath sounds Cardiovascular: regular rate and rhythm Gastrointestinal: soft Musculoskeletal: joint tenderness Diffuse skin rash edema arms>legs Results Results 24hrs Laboratory Tests Test 01/13/19 17:15 01/13/19 21:26 01/14/19 02:37 01/14/19 06:55 Bedside Glucose 169 198 136 White Blood Count 17.1 H Red Blood Count 2.65 L Hemoglobin 7.8 L Hematocrit 24.1 L Mean Corpuscular 90.9 Volume Mean Corpuscular 29.4 Hemoglobin Mean Corpuscular 32.4 Hemoglobin Concent Red Cell 17.6 H Distribution Width Platelet Count 256 Mean Platelet Volume 10.3 Immature 1.900 H Granulocytes % Neutrophils % 76.8 Lymphocytes % 10.9 L Monocytes % 9.0 Eosinophils % 1.3 Basophils % 0.1 Nucleated Red Blood 0.0 Cells % Immature 0.320 H Granulocytes # Neutrophils # 13.1 H Lymphocytes # 1.9 Monocytes # 1.5 H Eosinophils # 0.2 Basophils # 0.0 Nucleated Red Blood 0.0 Cells # Sodium Level 136 Potassium Level 4.5 Chloride Level 106 Carbon Dioxide Level 22 Anion Gap 8 Blood Urea Nitrogen 43 H Creatinine 1.50 H Est Glomerular Filtrat Rate mL/min Glucose Level 120 Calcium Level 8.8 Phosphorus Level 2.6 Magnesium Level 1.6 L Test 01/14/19 08:34 01/14/19 12:02 Bedside Glucose 134 198 Medications Medication Current Medications Docusate Sodium (Colace) 100 mg BID PO Last administered on 01/14/19 08:42; Admin Dose 100 MG; Start 01/10/19 at 21:00 Senna (Senokot) 1 tab HS PO Last administered on 01/13/19 21:21; Admin Dose 1 TAB; Start 01/10/19 at 21:00 Lactulose (Enulose) 20 gm DAILY PRN PO CONSTIPATION Last administered on 01/12/19 15:37; Admin Dose 20 GM; Start 01/10/19 at 19:00 Acetaminophen (Tylenol Tab) 650 mg Q4H PRN PO PAIN Last administered on 01/14/19 11:39; Admin Dose 650 MG; Start 01/10/19 at 19:00 Miscellaneous Information (Pending [facility] Order For Wound Care) This patient ramirez... PRN PRN XX WOUND CARE; Start 01/10/19 at 19:00 Diagnostic Test (Pha) (Accu-Chek) 1 ea AC MEALS AND BEDTIME XX Last admi nistered on 01/14/19 12:03; Admin Dose 1 EA; Start 01/10/19 at 21:00 Diagnostic Test (Pha) (Accu-Chek) 1 ea 02 XX Last administered on 01/14/19 02:00; Admin Dose 1 EA; Start 01/11/19 at 02:00 Albuterol/ Ipratropium (Duoneb) 3 ml Q2H RESP THERAPY PRN HHN SHORTNESS OF BREATH Last administered on 01/11/19 09:39; Admin Dose 3 ML; Start 01/10/19 at 19:30 Atorvastatin Calcium (Lipitor) 40 mg QHS PO Last administered on 01/13/19 21:22; Admin Dose 40 MG; Start 01/10/19 at 21:00 Bisacodyl (Dulcolax) 10 mg BID PRN PO CONSTIPATION; Start 01/10/19 at 19:30 Folic Acid (Folic Acid) 1 mg DAILY PO Last administered on 01/14/19 08:42; Admin Dose 1 MG; Start 01/11/19 at 09:00 Insulin Aspart (Novolog Insulin Pen) NOVOLOG *MILD* ALGORITHM WITH MEALS BEDTIME SC Last administered on 01/14/19 12:04; Admin Dose 2 UNIT; Start 01/10/19 at 21:00 Insulin Glargine (Lantus) 10 units QHS SC Last administered on 01/10/19 21:59; Admin Dose 10 UNITS; Start 01/10/19 at 21:00; Status Hold Latanoprost (Xalatan) 1 drop HS BOTH EYES Last administered on 01/13/19 21:21; Admin Dose 1 DROP; Start 01/10/19 at 21:00 Levothyroxine Sodium (Synthroid) 125 mcg BEFORE BREAKFAST PO Last administered on 01/14/19 06:09; Admin Dose 125 MCG; Start 01/11/19 at 07:00 Metoprolol Tartrate (Lopressor) 50 mg BID PO Last administered on 01/14/19 08:47; Admin Dose 50 MG; Start 01/10/19 at 21:00 Nitroglycerin (Nitroglycerin (Sl Tab) 0.4 Mg) 0.4 tab Q5M PRN SL CHEST PAIN; Start 01/10/19 at 19:30 Nystatin/ Triamcinolone Acetonide (Mycolog Cr) 1 applic BID TOP Last administered on 01/14/19 08:54; Admin Dose 1 APPLIC; Start 01/10/19 at 21:00 Nystatin (Nystatin Powder) 1 applic BID TOP Last administered on 01/14/19 08:54; Admin Dose 1 APPLIC; Start 01/10/19 at 21:00 Pantoprazole (Protonix Tab) 40 mg DAILY@06 PO Last administered on 01/14/19 06:09; Admin Dose 40 MG; Start 01/11/19 at 06:00 Polyethylene Glycol (Miralax) 17 gm DAILY PO Last administered on 01/14/19 08:48; Admin Dose 17 GM; Start 01/11/19 at 09:00 Pregabalin (Lyrica) 25 mg TID PO Last administered on 01/14/19 12:19; Admin Dose 25 MG; Start 01/10/19 at 21:00 IV Flush (NS 3 ml) 3 ml PER PROTOCOL IV ; Start 01/10/19 at 19:30 Terazosin HCl (Hytrin) 10 mg HS PO Last administered on 01/13/19 21:22; Admin Dose 10 MG; Start 01/10/19 at 21:00 Miscellaneous Information 1 ea NOTE XX ; Start 01/10/19 at 19:30 Glucose (Glutose) 15 gm Q15M PRN PO DECREASED GLUCOSE; Start 01/10/19 at 19:30 Glucose (Glutose) 22.5 gm Q15M PRN PO DECREASED GLUCOSE; Start 01/10/19 at 19:30 Dextrose (D50w Syringe) 25 ml Q15M PRN IV DECREASED GLUCOSE; Start 01/10/19 at 19:30 Dextrose (D50w Syringe) 50 ml Q15M PRN IV DECREASED GLUCOSE; Start 01/10/19 at 19:30 Glucagon (Glucagen) 1 mg Q15M PRN IM DECREASED GLUCOSE; Start 01/10/19 at 19:30 Glucose (Glutose) 15 gm Q15M PRN BUCCAL DECREASED GLUCOSE; Start 01/10/19 at 19:30 Multivitamins Therapeutic (Theragran) 1 tab DAILY PO Last administered on 01/14/19 08:41; Admin Dose 1 TAB; Start 01/12/19 at 09:00 Zinc Sulfate (Zinc Sulfate) 220 mg DAILY PO Last administered on 01/14/19 08:42; Admin Dose 220 MG; Start 01/12/19 at 09:00 Ascorbic Acid (Vitamin C) 250 mg DAILY PO Last administered on 01/14/19 08:42; Admin Dose 250 MG; Start 01/12/19 at 13:00 Albuterol/ Ipratropium (Duoneb) 3 ml Q6H RESP THERAPY HHN Last administered on 01/14/19 14:51; Admin Dose 3 ML; Start 01/11/19 at 20:00 Multi-Ingredient Ointment (Aquaphor Oint 52.5 Gm) 1 applic BID TOP Last administered on 01/14/19 08:53; Admin Dose 1 APPLIC; Start 01/13/19 at 13:30 Aspirin (Aspirin) 81 mg DAILY PO Last administered on 01/14/19 08:42; Admin Dose 81 MG; Start 01/14/19 at 09:00 Ferrous Sulfate (Ferrous Sulfate (Ec)) 325 mg WITH MEALS PO Last administered on 01/14/19 12:19; Admin Dose 325 MG; Start 01/13/19 at 17:35 Bisacodyl (Dulcolax Supp) 10 mg DAILY PRN CO CONSTIPATION Last administered on 01/14/19at 14:21; Admin Dose 10 MG; Start 01/13/19 at 17:00 Furosemide (Lasix) 20 mg DAILY PO Last administered on 01/14/19 08:48; Admin Dose 20 MG; Start 01/14/19 at 09:00 Acetaminophen/ Hydrocodone Bitart ([place] (5/325)) 1 tab Q4H PRN PO MODERATE PAIN LEVEL 4-6; Start 01/14/19 at 13:00 Acetaminophen/ Hydrocodone Bitart ([place] (5/325)) 2 tab Q4H PRN PO SEVERE PAIN LEVEL 7-10; Start 01/14/19 at 13:00 Magnesium Oxide (Mag-Ox 400) 400 mg TID PO Last administered on 01/14/19at 12:20; Admin Dose 400 MG; Start 01/14/19 at 13:00; Stop 01/15/19 at 12:00 IVAN AKHTAR MD Jan 14, 2019 15:26
[2019-01-14 16:55] VITALS: BP 133/53
[2019-01-14 20:00] VITALS: BP 134/62
[2019-01-14] MEDS: ATORVASTATIN 40 MG TAB PO SCH (21:41)
[2019-01-14] MEDS: SENNA TAB PO SCH (21:41)
[2019-01-14] MEDS: TERAZOSIN 5 MG CAP PO SCH (21:42)
[2019-01-14] MEDS: LATANOPROST 0.005% 2.5 ML OPH BOTH EYES SCH (21:47)
[2019-01-15] MEDS: ALBUTEROL/IPRATROPIUM (NEB) 3 ML AMP HHN SCH ×4 (01:55→19:52)
[2019-01-15 02:00] VITALS: BP 136/63
[2019-01-15] MEDS: ACCU-CHEK XX SCH ×5 (02:46→21:00)
[2019-01-15] MEDS: LEVOTHYROXINE 125 MCG TAB PO SCH (06:28)
[2019-01-15] MEDS: PANTOPRAZOLE (EC) 40 MG TAB PO SCH (06:28)
[2019-01-15] MEDS: INSULIN ASPART [NOVOLOG] 3 ML PEN SC SCH ×4 (07:35→21:00)
[2019-01-15] MEDS: FERROUS SULFATE (EC) 325 MG TAB PO SCH ×3 (07:50→18:43)
[2019-01-15 08:00] VITALS: BP 159/58; PULSE 100; RESP 18
[2019-01-15] MEDS: PREGABALIN 25 MG CAP PO SCH ×3 (08:45→21:16)
[2019-01-15] MEDS: DOCUSATE SODIUM 100 MG CAP PO SCH ×2 (08:46→21:08)
[2019-01-15] MEDS: ASPIRIN 81 MG TAB PO SCH (08:46)
[2019-01-15] MEDS: MULTIVITAMINS THERAPEUTIC TAB PO SCH (08:46)
[2019-01-15] MEDS: MAGNESIUM OXIDE 400 MG TAB PO SCH (08:46)
[2019-01-15] MEDS: FOLIC ACID 1 MG TAB PO SCH (08:46)
[2019-01-15] MEDS: ZINC SULFATE 220 MG CAP PO SCH (08:46)
[2019-01-15] MEDS: ASCORBIC ACID 250 MG TAB PO SCH (08:46)
[2019-01-15] MEDS: POLYETHYLENE GLYCOL 17 GM PACKET PO SCH (08:46)
[2019-01-15 08:49] VITALS: BP_SYST 134; BP_DIAS 2; BP_DIAS 62; PULSE 100; RESP 16
[2019-01-15] MEDS: FUROSEMIDE 20 MG TAB PO SCH (08:49)
[2019-01-15] MEDS: METOPROLOL 50 MG TAB PO SCH ×2 (08:49→21:09)
[2019-01-15] MEDS: NYSTATIN/TRIAMCINOLONE 15 GM CR TOP SCH ×2 (09:09→21:17)
[2019-01-15] MEDS: NYSTATIN 30 GM POWDER BTL TOP SCH ×2 (09:09→21:17)
[2019-01-15] MEDS: AQUAPHOR 52.5 GM OINT TOP SCH ×2 (09:09→21:17)
[2019-01-15] MEDS: BALSAM PERU/CASTOR OIL 60 GM TUBE TOP SCH ×2 (09:09→21:18)
--- NOTE | 2019-01-15 13:01 | PN ---
Date/Time of Note Date/Time of Note DATE: 01/15/19 TIME: 13:00 Subjective Patient reports joint pain Objective Vital Signs Date Temp Pulse Resp B/P (MAP) Pulse Ox O2 O2 Flow FiO2 Time Delivery Rate 01/15/19 2.0 09:41 01/15/19 98 18 100 Nasal 09:35 Cannula 01/15/19 98.4 134/2 (46) 08:49 Intake and Output 01/14/19 01/14/19 01/15/19 1515:00 23:00 07:00 IntakeIntake Total 420 ml 280 ml OutputOutput Total 800 ml 480 ml BalanceBalance -380 ml -200 ml Exam pulm-cta mod assist transfer Results/Medications Result Diagram: 01/15/19 0645 01/15/19 0645 Results 24 hrs Laboratory Tests Test 01/14/19 14:42 01/14/19 17:35 01/14/19 21:51 01/15/19 02:56 Lactic Acid Level 3.0 *H Bedside Glucose 158 195 132 Test 01/15/19 06:45 01/15/19 07:52 White Blood Count 19.7 H Red Blood Count 2.47 L Hemoglobin 7.2 L Hematocrit 22.6 L Mean Corpuscular 91.5 Volume Mean Corpuscular 29.1 Hemoglobin Mean Corpuscular 31.9 L Hemoglobin Concent Red Cell 17.9 H Distribution Width Platelet Count 243 Mean Platelet Volume 10.4 Immature 1.700 H Granulocytes % Neutrophils % 79.4 H Lymphocytes % 7.9 L Monocytes % 9.8 Eosinophils % 1.0 Basophils % 0.2 Nucleated Red Blood 0.2 H Cells % Immature 0.340 H Granulocytes # Neutrophils # 15.6 H Lymphocytes # 1.6 Monocytes # 1.9 H Eosinophils # 0.2 Basophils # 0.0 Nucleated Red Blood 0.0 Cells # Sodium Level 136 Potassium Level 4.5 Chloride Level 105 Carbon Dioxide Level 23 Anion Gap 8 Blood Urea Nitrogen 42 H Creatinine 1.40 H Est Glomerular Filtrat Rate mL/min Glucose Level 122 Calcium Level 8.3 L Phosphorus Level 2.6 Magnesium Level 1.6 L Total Bilirubin 0.6 Direct Bilirubin 0.00 Indirect Bilirubin 0.6 Aspartate Amino 12 L Transf (AST/SGOT) Alanine 21 Aminotransferase (AL T/SGPT) Alkaline Phosphatase 64 Total Protein 5.2 L Albumin 2.4 L Globulin 2.80 Albumin/Globulin 0.85 Ratio Bedside Glucose 131 Medications Current Medications Docusate Sodium (Colace) 100 mg BID PO Last administered on 01/15/19 08:46; Admin Dose 100 MG; Start 01/10/19 at 21:00 Senna (Senokot) 1 tab HS PO Last administered on 01/14/19 21:41; Admin Dose 1 TAB; Start 01/10/19 at 21:00 Lactulose (Enulose) 20 gm DAILY PRN PO CONSTIPATION Last administered on 01/12/19 15:37; Admin Dose 20 GM; Start 01/10/19 at 19:00 Acetaminophen (Tylenol Tab) 650 mg Q4H PRN PO PAIN Last administered on 01/14/19 21:47; Admin Dose 650 MG; Start 01/10/19 at 19:00 Miscellaneous Information (Pending [facility] Order For Wound Care) This patient ramirez... PRN PRN XX WOUND CARE; Start 01/10/19 at 19:00 Diagnostic Test (Pha) (Accu-Chek) 1 ea AC MEALS AND BEDTIME XX Last administered on 01/15/19 12:12; Admin Dose 1 EA; Start 01/10/19 at 21:00 Diagnostic Test (Pha) (Accu-Chek) 1 ea 02 XX Last administered on 01/15/19 02:46; Admin Dose 1 EA; Start 01/11/19 at 02:00 Albuterol/ Ipratropium (Duoneb) 3 ml Q2H RESP THERAPY PRN HHN SHORTNESS OF BREATH Last administered on 01/11/19 09:39; Admin Dose 3 ML; Start 01/10/19 at 19:30 Atorvastatin Calcium (Lipitor) 40 mg QHS PO Last administered on 01/14/19 21:41; Admin Dose 40 MG; Start 01/10/19 at 21:00 Bisacodyl (Dulcolax) 10 mg BID PRN PO CONSTIPATION; Start 01/10/19 at 19:30 Folic Acid (Folic Acid) 1 mg DAILY PO Last administered on 01/15/19 08:46; Admin Dose 1 MG; Start 01/11/19 at 09:00 Insulin Aspart (Novolog Insulin Pen) NOVOLOG *MILD* ALGORITHM WITH MEALS BEDTIME SC Last administered on 01/15/19 12:17; Admin Dose 1 UNIT; Start 01/10/19 at 21:00 Insulin Glargine (Lantus) 10 units QHS SC Last administered on 01/10/19 21:59; Admin Dose 10 UNITS; Start 01/10/19 at 21:00; Status Hold Latanoprost (Xalatan) 1 drop HS BOTH EYES Last administered on 01/14/19 21:47; Admin Dose 1 DROP; Start 01/10/19 at 21:00 Levothyroxine Sodium (Synthroid) 125 mcg BEFORE BREAKFAST PO Last administered on 01/15/19 06:28; Admin Dose 125 MCG; Start 01/11/19 at 07:00 Metoprolol Tartrate (Lopressor) 50 mg BID PO Last administered on 01/15/19 08:49; Admin Dose 50 MG; Start 01/10/19 at 21:00 Nitroglycerin (Nitroglycerin (Sl Tab) 0.4 Mg) 0.4 tab Q5M PRN SL CHEST PAIN; Start 01/10/19 at 19:30 Nystatin/ Triamcinolone Acetonide (Mycolog Cr) 1 applic BID TOP Last administered on 01/15/19 09:09; Admin Dose 1 APPLIC; Start 01/10/19 at 21:00 Nystatin (Nystatin Powder) 1 applic BID TOP Last administered on 01/15/19 09:09; Admin Dose 1 APPLIC; Start 01/10/19 at 21:00 Pantoprazole (Protonix Tab) 40 mg DAILY@06 PO Last administered on 01/15/19 06:28; Admin Dose 40 MG; Start 01/11/19 at 06:00 Polyethylene Glycol (Miralax) 17 gm DAILY PO Last administered on 01/15/19 08:46; Admin Dose 17 GM; Start 01/11/19 at 09:00 Pregabalin (Lyrica) 25 mg TID PO Last administered on 01/15/19 08:45; Admin Dose 25 MG; Start 01/10/19 at 21:00 IV Flush (NS 3 ml) 3 ml PER PROTOCOL IV ; Start 01/10/19 at 19:30 Terazosin HCl (Hytrin) 10 mg HS PO Last administered on 01/14/19 21:42; Admin Dose 10 MG; Start 01/10/19 at 21:00 Miscellaneous Information 1 ea NOTE XX ; Start 01/10/19 at 19:30 Glucose (Glutose) 15 gm Q15M PRN PO DECREASED GLUCOSE; Start 01/10/19 at 19:30 Glucose (Glutose) 22.5 gm Q15M PRN PO DECREASED GLUCOSE; Start 01/10/19 at 19:30 Dextrose (D50w Syringe) 25 ml Q15M PRN IV DECREASED GLUCOSE; Start 01/10/19 at 19:30 Dextrose (D50w Syringe) 50 ml Q15M PRN IV DECREASED GLUCOSE; Start 01/10/19 at 19:30 Glucagon (Glucagen) 1 mg Q15M PRN IM DECREASED GLUCOSE; Start 01/10/19 at 19:30 Glucose (Glutose) 15 gm Q15M PRN BUCCAL DECREASED GLUCOSE; Start 01/10/19 at 19:30 Multivitamins Therapeutic (Theragran) 1 tab DAILY PO Last administered on 01/15/19 08:46; Admin Dose 1 TAB; Start 01/12/19 at 09:00 Zinc Sulfate (Zinc Sulfate) 220 mg DAILY PO Last administered on 01/15/19 08:46; Admin Dose 220 MG; Start 01/12/19 at 09:00 Ascorbic Acid (Vitamin C) 250 mg DAILY PO Last administered on 01/15/19 08:46; Admin Dose 250 MG; Start 01/12/19 at 13:00 Albuterol/ Ipratropium (Duoneb) 3 ml Q6H RESP THERAPY HHN Last administered on 01/15/19 09:35; Admin Dose 3 ML; Start 01/11/19 at 20:00 Multi-Ingredient Ointment (Aquaphor Oint 52.5 Gm) 1 applic BID TOP Last administered on 01/15/19 09:09; Admin Dose 1 APPLIC; Start 01/13/19 at 13:30 Aspirin (Aspirin) 81 mg DAILY PO Last administered on 01/15/19 08:46; Admin Dose 81 MG; Start 01/14/19 at 09:00 Ferrous Sulfate (Ferrous Sulfate (Ec)) 325 mg WITH MEALS PO Last administered on 01/15/19 12:20; Admin Dose 325 MG; Start 01/13/19 at 17:35 Bisacodyl (Dulcolax Supp) [address] CONSTIPATION Last administered on 4/23/19at 14:21; Admin Dose 10 MG; Start 01/13/19 at 17:00 Furosemide (Lasix) 20 mg DAILY PO Last administered on 01/15/19at 08:49; Admin D ose 20 MG; Start 01/14/19 at 09:00 Acetaminophen/ Hydrocodone Bitart ([place] (5/325)) 1 tab Q4H PRN PO MODERATE PAIN LEVEL 4-6 Last administered on 01/15/19at 07:52; Admin Dose 1 TAB; Start 01/14/19 at 13:00 Acetaminophen/ Hydrocodone Bitart ([place] (5/325)) 2 tab Q4H PRN PO SEVERE PAIN LEVEL 7-10; Start 01/14/19 at 13:00 Assessment/Plan Additional Assessment/Plan Severe rheumatoid arthritis affecting multiple joints with decreased range of motion; Critical illness myopathy. Activities as tolerated ID- sepsis, pneumonia- WBC continues trending upward. abx per IM Congestive heart failure. Degenerative disk disease. Coronary artery disease with history of coronary artery bypass graft x2; afib Peripheral vascular disease. Chronic obstructive pulmonary disease. Acute on chronic kidney disease. Hypertension. Hyperlipidemia. Dermatologic irritation with skin excoriation, moisture related fissure in the sacral region, and diffuse epidermal desquamation. Gastritis. Urinary retention with a Wade catheter. Diabetes mellitus type 2, labile. DEEPALI MARC MD Jan 15, 2019 13:01
[2019-01-15] MEDS: HYDROCODONE/APAP (5/325) TAB PO PRN (13:15)
--- NOTE | 2019-01-15 13:56 | PN ---
Date/Time of Note Date/Time of Note DATE: 01/15/19 TIME: 13:56 Assessment/Plan VTE Prophylaxis Risk score (from Ns)>0 risk: 9 SCD applied (from Ns): No SCD contraindicated: low risk/ambulating Pharmacological prophylaxis: NA/contraindicated Pharm contraindication: low risk/ambulating Lines/Catheters IV Catheter Type (from Nrs): Mid Line Urinary Cath still in place: Yes Reason Cath still needed: urinary retention Assessment/Plan Assessment/Plan 88 y/o with 88 y/o with 1. Recent sepsis, SOB, weakness. Pt had recent bilateral pneumonia. 2. COPD, on oxygen at home 3. Acute on chronic renal failure likely secondary to sepsis C r had improved 4. Hypertension. 5. Hyperlipidemia. 6. Hypothyroidism. 7. Normocytic normochromic chronic anemia with recent hemoglobin drop in HG to 7.0, to day 6.9. S/p blood transfusion 8. Bilateral groin cellulitis more likely associated with mateus, patches in groin and axilla bilaterally. Back rash 9. History of rheumatoid arthritis with joint deformities. 10. Diabetes type 2. 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 Peripheral vascular disease. 13. Chronic a.fib 14. right arm edema 15 ansarca with hypoalbuminemia 16 Leukocytosis rising to 19, no fevers, joint pain/skin sloughing> wup send Assessment/Plan - spoke to ID will start on caspofungin - repeat cx have been sent per ID will do CT CAP -cw on low dose Lasix and monitor kidney function -DVT proph. unable to tolerate Eliquiz, SCD, restarted on aspirin -Monitor hemoglobin -GI prophylaxis Faotidine BID -pain control -c/w home meds -nyst cream BID axilla -supp. oxygen - PT/OT Result Diagram: 01/15/19 0645 01/15/19 0645 Results 24hrs Laboratory Tests Test 01/14/19 14:42 01/14/19 17:35 01/14/19 21:51 01/15/19 02:56 Lactic Acid Level 3.0 *H Bedside Glucose 158 195 132 Test 01/15/19 06:45 01/15/19 07:52 01/15/19 12:11 White Blood Count 19.7 H Red Blood Count 2.47 L Hemoglobin 7.2 L Hematocrit 22.6 L Mean Corpuscular 91.5 Volume Mean Corpuscular 29.1 Hemoglobin Mean Corpuscular 31.9 L Hemoglobin Concent Red Cell 17.9 H Distribution Width Platelet Count 243 Mean Platelet Volume 10.4 Immature 1.700 H Granulocytes % Neutrophils % 79.4 H Lymphocytes % 7.9 L Monocytes % 9.8 Eosinophils % 1.0 Basophils % 0.2 Nucleated Red Blood 0.2 H Cells % Immature 0.340 H Granulocytes # Neutrophils # 15.6 H Lymphocytes # 1.6 Monocytes # 1.9 H Eosinophils # 0.2 Basophils # 0.0 Nucleated Red Blood 0.0 Cells # Sodium Level 136 Potassium Level 4.5 Chloride Level 105 Carbon Dioxide Level 23 Anion Gap 8 Blood Urea Nitrogen 42 H Creatinine 1.40 H Est Glomerular Filtrat Rate mL/min Glucose Level 122 Calcium Level 8.3 L Phosphorus Level 2.6 Magnesium Level 1.6 L Total Bilirubin 0.6 Direct Bilirubin 0.00 Indirect Bilirubin 0.6 Aspartate Amino 12 L Transf (AST/SGOT) Alanine 21 Aminotransferase (AL T/SGPT) Alkaline Phosphatase 64 Total Protein 5.2 L Albumin 2.4 L Globulin 2.80 Albumin/Globulin 0.85 Ratio Bedside Glucose 131 177 Subjective 24 Hr Interval Summary Free Text/Dictation pt complaining of joint pain was working with PT leukocytosis rising, no fevers though Exam/Review of Systems Exam Vitals Vital Signs Date Temp Pulse Resp B/P (MAP) Pulse Ox O2 O2 Flow FiO2 Time Delivery Rate 01/15/19 2.0 09:41 01/15/19 98 18 100 Nasal 09:35 Cannula 01/15/19 98.4 134/2 (46) 08:49 Intake and Output 01/14/19 01/14/19 01/15/19 1515:00 23:00 07:00 IntakeIntake Total 420 ml 280 ml OutputOutput Total 800 ml 480 ml BalanceBalance -380 ml -200 ml Exam onstitutional: alert, oriented Head: normocephalic Eyes: nl conjunctiva Respiratory: normal air movement, diminished breath sounds Cardiovascular: regular rate and rhythm Gastrointestinal: soft Musculoskeletal: joint tenderness Diffuse skin rash edema arms>legs sloughing of skin edema Results Results 24hrs Laboratory Tests Test 01/14/19 14:42 01/14/19 17:35 01/14/19 21:51 01/15/19 02:56 Lactic Acid Level 3.0 *H Bedside Glucose 158 195 132 Test 01/15/19 06:45 01/15/19 07:52 01/15/19 12:11 White Blood Count 19.7 H Red Blood Count 2.47 L Hemoglobin 7.2 L Hematocrit 22.6 L Mean Corpuscular 91.5 Volume Mean Corpuscular 29.1 Hemoglobin Mean Corpuscular 31.9 L Hemoglobin Concent Red Cell 17.9 H Distribution Width Platelet Count 243 Mean Platelet Volume 10.4 Immature 1.700 H Granulocytes % Neutrophils % 79.4 H Lymphocytes % 7.9 L Monocytes % 9.8 Eosinophils % 1.0 Basophils % 0.2 Nucleated Red Blood 0.2 H Cells % Immature 0.340 H Granulocytes # Neutrophils # 15.6 H Lymphocytes # 1.6 Monocytes # 1.9 H Eosinophils # 0.2 Basophils # 0.0 Nucleated Red Blood 0.0 Cells # Sodium Level 136 Potassium Level 4.5 Chloride Level 105 Carbon Dioxide Level 23 Anion Gap 8 Blood Urea Nitrogen 42 H Creatinine 1.40 H Est Glomerular Filtrat Rate mL/min Glucose Level 122 Calcium Level 8.3 L Phosphorus Level 2.6 Magnesium Level 1.6 L Total Bilirubin 0.6 Direct Bilirubin 0.00 Indirect Bilirubin 0.6 Aspartate Amino 12 L Transf (AST/SGOT) Alanine 21 Aminotransferase (AL T/SGPT) Alkaline Phosphatase 64 Total Protein 5.2 L Albumin 2.4 L Globulin 2.80 Albumin/Globulin 0.85 Ratio Bedside Glucose 131 177 Medications Medication Current Medications Docusate Sodium (Colace) 100 mg BID PO Last administered on 01/15/19 08:46; Admin Dose 100 MG; Start 01/10/19 at 21:00 Senna (Senokot) 1 tab HS PO Last administered on 01/14/19at 21:41; Admin Dose 1 TAB; Start 01/10/19 at 21:00 Lactulose (Enulose) 20 gm DAILY PRN PO CONSTIPATION Last administered on 01/12/19at 15:37; Admin Dose 20 GM; Start 01/10/19 at 19:00 Acetaminophen (Tylenol Tab) 650 mg Q4H PRN PO PAIN Last administered on 01/14/19 21:47; Admin Dose 650 MG; Start 01/10/19 at 19:00 [facility] This patient ramirez... PRN PRN XX WOUND CARE; Start 01/10/19 at 19:00 Diagnostic Test (Pha) (Accu-Chek) 1 ea AC MEALS AND BEDTIME XX Last administered on 01/15/19 12:12; Admin Dose 1 EA; Start 01/10/19 at 21:00 Diagnostic Test (Pha) (Accu-Chek) 1 ea 02 XX Last administered on 01/15/19 02:46; Admin Dose 1 EA; Start 01/11/19 at 02:00 Albuterol/ Ipratropium (Duoneb) 3 ml Q2H RESP THERAPY PRN HHN SHORTNESS OF BREATH Last administered on 01/11/19 09:39; Admin Dose 3 ML; Start 01/10/19 at 19:30 Atorvastatin Calcium (Lipitor) 40 mg QHS PO Last administered on 01/14/19 21:41; Admin Dose 40 MG; Start 01/10/19 at 21:00 Bisacodyl (Dulcolax) 10 mg BID PRN PO CONSTIPATION; Start 01/10/19 at 19:30 Folic Acid (Folic Acid) 1 mg DAILY PO Last administered on 01/15/19 08:46; Admin Dose 1 MG; Start 01/11/19 at 09:00 Insulin Aspart (Novolog Insulin Pen) NOVOLOG *MILD* ALGORITHM WITH MEALS BEDTIME SC Last administered on 01/15/19 12:17; Admin Dose 1 UNIT; Start 01/10/19 at 21:00 Insulin Glargine (Lantus) 10 units QHS SC Last administered on 01/10/19 21:59; Admin Dose 10 UNITS; Start 01/10/19 at 21:00; Status Hold Latanoprost (Xalatan) 1 drop HS BOTH EYES Last administered on 01/14/19 21:47; Admin Dose 1 DROP; Start 01/10/19 at 21:00 Levothyroxine Sodium (Synthroid) 125 mcg BEFORE BREAKFAST PO Last administered on 01/15/19 06:28; Admin Dose 125 MCG; Start 01/11/19 at 07:00 Metoprolol Tartrate (Lopressor) 50 mg BID PO Last administered on 01/15/19 08:49; Admin Dose 50 MG; Start 01/10/19 at 21:00 Nitroglycerin (Nitroglycerin (Sl Tab) 0.4 Mg) 0.4 tab Q5M PRN SL CHEST PAIN; Start 01/10/19 at 19:30 Nystatin/ Triamcinolone Acetonide (Mycolog Cr) 1 applic BID TOP Last administered on 01/15/19 09:09; Admin Dose 1 APPLIC; Start 01/10/19 at 21:00 Nystatin (Nystatin Powder) 1 applic BID TOP Last administered on 01/15/19 09:09; Admin Dose 1 APPLIC; Start 01/10/19 at 21:00 Pantoprazole (Protonix Tab) 40 mg DAILY@06 PO Last administered on 01/15/19 06:28; Admin Dose 40 MG; Start 01/11/19 at 06:00 Polyethylene Glycol (Miralax) 17 gm DAILY PO Last administered on 01/15/19 08:46; Admin Dose 17 GM; Start 01/11/19 at 09:00 Pregabalin (Lyrica) 25 mg TID PO Last administered on 01/15/19 13:15; Admin Dose 25 MG; Start 01/10/19 at 21:00 IV Flush (NS 3 ml) 3 ml PER PROTOCOL IV ; Start 01/10/19 at 19:30 Terazosin HCl (Hytrin) 10 mg HS PO Last administered on 01/14/19 21:42; Admin Dose 10 MG; Start 01/10/19 at 21:00 Miscellaneous Information 1 ea NOTE XX ; Start 01/10/19 at 19:30 Glucose (Glutose) 15 gm Q15M PRN PO DECREASED GLUCOSE; Start 01/10/19 at 19:30 Glucose (Glutose) 22.5 gm Q15M PRN PO DECREASED GLUCOSE; Start 01/10/19 at 19:30 Dextrose (D50w Syringe) 25 ml Q15M PRN IV DECREASED GLUCOSE; Start 01/10/19 at 19:30 Dextrose (D50w Syringe) 50 ml Q15M PRN IV DECREASED GLUCOSE; Start 01/10/19 at 19:30 Glucagon (Glucagen) 1 mg Q15M PRN IM DECREASED GLUCOSE; Start 01/10/19 at 19:30 Glucose (Glutose) 15 gm Q15M PRN BUCCAL DECREASED GLUCOSE; Start 01/10/19 at 19:30 Multivitamins Therapeutic (Theragran) 1 tab DAILY PO Last administered on 01/15/19 08:46; Admin Dose 1 TAB; Start 01/12/19 at 09:00 Zinc Sulfate (Zinc Sulfate) 220 mg DAILY PO Last administered on 01/15/19 08:46; Admin Dose 220 MG; Start 01/12/19 at 09:00 Ascorbic Acid (Vitamin C) 250 mg DAILY PO Last administered on 01/15/19 08:46; Admin Dose 250 MG; Start 01/12/19 at 13:00 Albuterol/ Ipratropium (Duoneb) 3 ml Q6H RESP THERAPY HHN Last administered on 01/15/19 09:35; Admin Dose 3 ML; Start 01/11/19 at 20:00 Multi-Ingredient Ointment (Aquaphor Oint 52.5 Gm) 1 applic BID TOP Last admi nistered on 01/15/19 09:09; Admin Dose 1 APPLIC; Start 01/13/19 at 13:30 Aspirin (Aspirin) 81 mg DAILY PO Last administered on 01/15/19 08:46; Admin Dose 81 MG; Start 01/14/19 at 09:00 Ferrous Sulfate (Ferrous Sulfate (Ec)) 325 mg WITH MEALS PO Last administered on 01/15/19 12:20; Admin Dose 325 MG; Start 01/13/19 at 17:35 Bisacodyl (Dulcolax Supp) 10 mg DAILY PRN [place] CONSTIPATION Last administered on 01/14/19 14:21; Admin Dose 10 MG; Start 01/13/19 at 17:00 Furosemide (Lasix) 20 mg DAILY PO Last administered on 01/15/19 08:49; Admin Dose 20 MG; Start 01/14/19 at 09:00 Acetaminophen/ Hydrocodone Bitart ([place] (5/325)) 1 tab Q4H PRN PO MODERATE PAIN LEVEL 4-6 Last administered on 01/15/19 07:52; Admin Dose 1 TAB; Start 01/14/19 at 13:00 Acetaminophen/ Hydrocodone Bitart ([place] (5/325)) 2 tab Q4H PRN PO SEVERE PAIN LEVEL 7-10 Last administered on 01/15/19 13:15; Admin Dose 2 TAB; Start 01/14/19 at 13:00 Caspofungin 50 mg/ Sodium Chloride 250 ml @ 250 mls/hr Q24H IVPB ; Start 01/16/19 at 15:00 Caspofungin 70 mg/ Sodium Chloride 250 ml @ 250 mls/hr ONCE ONCE IVPB ; Start 01/15/19 at 15:00; Stop 01/15/19 at 15:59 IVAN AKHTAR MD Jan 15, 2019 13:56
[2019-01-15 14:00] VITALS: BP 140/71; PULSE 98; RESP 18
[2019-01-15] MEDS ORDERED: CASPOFUNGIN 70 MG in SOD CHLORIDE 0.9% 250 ML IVPB ONE (15:00)
--- NOTE | 2019-01-15 16:05 | CONS ---
Assessment/Plan Assessment/Plan Hospital Course (Demo Recall) No acute changes overnight patient remains afebrile looks comfortable no vomiting no diarrhea. WBC 19.7 neutrophils 79.4 BUN 42 creatinine 1.40 Allergy: Penicillin, sulfa Physical examination: Obese well-developed chronically ill-appearing - [place] man who is awake in no distress. Head atraumatic normocephalic sclera nonicteric. Neck is supple chest rise symmetrical breath sounds diminished bases. Heart: S1-S2. Abdomen obese soft bowel sounds present extremities without cyanosis, bilateral edema Assessment: 1. S/p sepsis, present on admission 2. Status post pneumonia 3. Coronary artery disease/history of CABG 4. Advanced rheumatoid arthritis 5. Chronic atrial fibrillation 6. Diabetes 7. BPH 8. Bilateral groin fungal cellulitis 9. Acute on chronic anemia===> s/p EGD/colonoscopy 01/09/19 10. Right epididymitis Plan: Clinically stable, white blood cell count continues to increase, we will will restart him on antifungal regimen and order CT abdomen and chest, follow blood cultures and pro-calcitonin level Consultation Date/Type/Reason Admit Date/Time Jan 10, 2019 at 17:45 Initial Consult Date Type of Consult id Requesting Provider: IVAN AKHTAR MD Date/Time of Note DATE: 01/15/19 TIME: 16:04 Exam/Review of Systems Exam Vitals Vital Signs Date Temp Pulse Resp B/P (MAP) Pulse Ox O2 O2 Flow FiO2 Time Delivery Rate 01/15/19 75 17 100 Nasal 2.0 14:52 Cannula 01/15/19 98.8 140/71 14:00 (94) Intake and Output 01/14/19 01/14/19 01/15/19 1515:00 23:00 07:00 IntakeIntake Total 420 ml 280 ml OutputOutput Total 800 ml 480 ml BalanceBalance -380 ml -200 ml Results Result Diagram: 01/15/19 0645 01/15/19 0645 Results 24hrs Laboratory Tests Test 01/14/19 17:35 01/14/19 21:51 01/15/19 02:56 01/15/19 06:45 Bedside Glucose 158 195 132 White Blood Count 19.7 H Red Blood Count 2.47 L Hemoglobin 7.2 L Hematocrit 22.6 L Mean Corpuscular 91.5 Volume Mean Corpuscular 29.1 Hemoglobin Mean Corpuscular 31.9 L Hemoglobin Concent Red Cell 17.9 H Distribution Width Platelet Count 243 Mean Platelet Volume 10.4 Immature 1.700 H Granulocytes % Neutrophils % 79.4 H Lymphocytes % 7.9 L Monocytes % 9.8 Eosinophils % 1.0 Basophils % 0.2 Nucleated Red Blood 0.2 H Cells % Immature 0.340 H Granulocytes # Neutrophils # 15.6 H Lymphocytes # 1.6 Monocytes # 1.9 H Eosinophils # 0.2 Basophils # 0.0 Nucleated Red Blood 0.0 Cells # Sodium Level 136 Potassium Level 4.5 Chloride Level 105 Carbon Dioxide Level 23 Anion Gap 8 Blood Urea Nitrogen 42 H Creatinine 1.40 H Est Glomerular Filtrat Rate mL/min Glucose Level 122 Calcium Level 8.3 L Phosphorus Level 2.6 Magnesium Level 1.6 L Total Bilirubin 0.6 Direct Bilirubin 0.00 Indirect Bilirubin 0.6 Aspartate Amino 12 L Transf (AST/SGOT) Alanine 21 Aminotransferase (AL T/SGPT) Alkaline Phosphatase 64 Total Protein 5.2 L Albumin 2.4 L Globulin 2.80 Albumin/Globulin 0.85 Ratio Test 01/15/19 07:52 01/15/19 12:11 Bedside Glucose 131 177 Medications Medication Current Medications Docusate Sodium (Colace) 100 mg BID PO Last administered on 01/15/19 08:46; Admin Dose 100 MG; Start 01/10/19 at 21:00 Senna (Senokot) 1 tab HS PO Last administered on 01/14/19 21:41; Admin Dose 1 TAB; Start 01/10/19 at 21:00 Lactulose (Enulose) 20 gm DAILY PRN PO CONSTIPATION Last administered on 01/12/19 15:37; Admin Dose 20 GM; Start 01/10/19 at 19:00 Acetaminophen (Tylenol Tab) 650 mg Q4H PRN PO PAIN Last administered on 01/14/19 21:47; Admin Dose 650 MG; Start 01/10/19 at 19:00 [facility] This patient ramirez... PRN PRN XX WOUND CARE; Start 01/10/19 at 19:00 Diagnostic Test (Pha) (Accu-Chek) 1 ea AC MEALS AND BEDTIME XX Last administered on 01/15/19 12:12; Admin Dose 1 EA; Start 01/10/19 at 21:00 Diagnostic Test (Pha) (Accu-Chek) 1 ea 02 XX Last administered on 01/15/19 02:46; Admin Dose 1 EA; Start 01/11/19 at 02:00 Albuterol/ Ipratropium (Duoneb) 3 ml Q2H RESP THERAPY PRN HHN SHORTNESS OF BREATH Last administered on 01/11/19 09:39; Admin Dose 3 ML; Start 01/10/19 at 19:30 Atorvastatin Calcium (Lipitor) 40 mg QHS PO Last administered on 01/14/19 21:41; Admin Dose 40 MG; Start 01/10/19 at 21:00 Bisacodyl (Dulcolax) 10 mg BID PRN PO CONSTIPATION; Start 01/10/19 at 19:30 Folic Acid (Folic Acid) 1 mg DAILY PO Last administered on 01/15/19 08:46; Admin Dose 1 MG; Start 01/11/19 at 09:00 Insulin Aspart (Novolog Insulin Pen) NOVOLOG *MILD* ALGORITHM WITH MEALS BEDTIME SC Last administered on 01/15/19 12:17; Admin Dose 1 UNIT; Start 01/10/19 at 21:00 Insulin Glargine (Lantus) 10 units QHS SC Last administered on 01/10/19 21:59; Admin Dose 10 UNITS; Start 01/10/19 at 21:00; Status Hold Latanoprost (Xalatan) 1 drop HS BOTH EYES Last administered on 01/14/19 21:47; Admin Dose 1 DROP; Start 01/10/19 at 21:00 Levothyroxine Sodium (Synthroid) 125 mcg BEFORE BREAKFAST PO Last administered on 01/15/19 06:28; Admin Dose 125 MCG; Start 01/11/19 at 07:00 Metoprolol Tartrate (Lopressor) 50 mg BID PO Last administered on 01/15/19 08:49; Admin Dose 50 MG; Start 01/10/19 at 21:00 Nitroglycerin (Nitroglycerin (Sl Tab) 0.4 Mg) 0.4 tab Q5M PRN SL CHEST PAIN; Start 01/10/19 at 19:30 Nystatin/ Triamcinolone Acetonide (Mycolog Cr) 1 applic BID TOP Last administer ed on 01/15/19 09:09; Admin Dose 1 APPLIC; Start 01/10/19 at 21:00 Nystatin (Nystatin Powder) 1 applic BID TOP Last administered on 01/15/19 09:09; Admin Dose 1 APPLIC; Start 01/10/19 at 21:00 Pantoprazole (Protonix Tab) 40 mg DAILY@06 PO Last administered on 01/15/19 06:28; Admin Dose 40 MG; Start 01/11/19 at 06:00 Polyethylene Glycol (Miralax) 17 gm DAILY PO Last administered on 01/15/19 08:46; Admin Dose 17 GM; Start 01/11/19 at 09:00 Pregabalin (Lyrica) 25 mg TID PO Last administered on 01/15/19 13:15; Admin Dose 25 MG; Start 01/10/19 at 21:00 IV Flush (NS 3 ml) 3 ml PER PROTOCOL IV ; Start 01/10/19 at 19:30 Terazosin HCl (Hytrin) 10 mg HS PO Last administered on 01/14/19 21:42; Admin Dose 10 MG; Start 01/10/19 at 21:00 Miscellaneous Information 1 ea NOTE XX ; Start 01/10/19 at 19:30 Glucose (Glutose) 15 gm Q15M PRN PO DECREASED GLUCOSE; Start 01/10/19 at 19:30 Glucose (Glutose) 22.5 gm Q15M PRN PO DECREASED GLUCOSE; Start 01/10/19 at 19:30 Dextrose (D50w Syringe) 25 ml Q15M PRN IV DECREASED GLUCOSE; Start 01/10/19 at 19:30 Dextrose (D50w Syringe) 50 ml Q15M PRN IV DECREASED GLUCOSE; Start 01/10/19 at 19:30 Glucagon (Glucagen) 1 mg Q15M PRN IM DECREASED GLUCOSE; Start 01/10/19 at 19:30 Glucose (Glutose) 15 gm Q15M PRN BUCCAL DECREASED GLUCOSE; Start 01/10/19 at 19:30 Multivitamins Therapeutic (Theragran) 1 tab DAILY PO Last administered on 01/15/19 08:46; Admin Dose 1 TAB; Start 01/12/19 at 09:00 Zinc Sulfate (Zinc Sulfate) 220 mg DAILY PO Last administered on 01/15/19 08:46; Admin Dose 220 MG; Start 01/12/19 at 09:00 Ascorbic Acid (Vitamin C) 250 mg DAILY PO Last administered on 01/15/19 08:46; Admin Dose 250 MG; Start 01/12/19 at 13:00 Albuterol/ Ipratropium (Duoneb) 3 ml Q6H RESP THERAPY HHN Last administered on 01/15/19 14:49; Admin Dose 3 ML; Start 01/11/19 at 20:00 Multi-Ingredient Ointment (Aquaphor Oint 52.5 Gm) 1 applic BID TOP Last administered on 01/15/19 09:09; Admin Dose 1 APPLIC; Start 01/13/19 at 13:30 Aspirin (Aspirin) 81 mg DAILY PO Last administered on 01/15/19 08:46; Admin Dose 81 MG; Start 01/14/19 at 09:00 Ferrous Sulfate (Ferrous Sulfate (Ec)) 325 mg WITH MEALS PO Last administered on 01/15/19 12:20; Admin Dose 325 MG; Start 01/13/19 at 17:35 Bisacodyl (Dulcolax Supp) 10 mg DAILY PRN [place] CONSTIPATION Last administered on 01/14/19 14:21; Admin Dose 10 MG; Start 01/13/19 at 17:00 Furosemide (Lasix) 20 mg DAILY PO Last administered on 01/15/19 08:49; Admin Dose 20 MG; Start 01/14/19 at 09:00 Acetaminophen/ Hydrocodone Bitart ([place] (5/325)) 1 tab Q4H PRN PO MODERATE PAIN LEVEL 4-6 Last administered on 01/15/19 07:52; Admin Dose 1 TAB; Start 01/14/19 at 13:00 Acetaminophen/ Hydrocodone Bitart ([place] (5/325)) 2 tab Q4H PRN PO SEVERE PAIN LEVEL 7-10 Last administered on 01/15/19 13:15; Admin Dose 2 TAB; Start 01/14/19 at 13:00 Caspofungin 50 mg/ Sodium Chloride 250 ml @ 250 mls/hr Q24H IVPB ; Start 01/16/19 at 15:00 LUCIAN HARKINS NP Jan 15, 2019 16:05
--- NOTE | 2019-01-15 17:10 | CONS ---
Assessment/Plan Assessment/Plan Hospital Course (Demo Recall) IMPRESSION: 1. Atrial fibrillation, currently rate controlled.-off anticoagulation due to anemia 2. Possible congestive heart failure by chest x-ray, which will be diastolic, acute on chronic by most recent echo with an EF of 60%. 3. Tricuspid regurgitation, moderate by most recent echo. 4. Acute on chronic renal failure. 5. Possible pneumonia. 6. History of coronary artery disease, status post coronary artery bypass graft surgery. 7. Dyslipidemia. 8. Rheumatoid arthritis. 9. Groin cellulitis. 10. Anemia-worsening requiring transfusions PRBC's.Now post-op s/p endoscopy ? findings 11. Diabetes mellitus. Recc: -Tele -serial ecg's -Continue BB's -Holding anticoagulation in the setting of anemia requiring transfusions. Now s/p endoscopy. ? results, ? ability to resume anticoagulation for AF and thus have resumed asa only for now and will follow for recurrent bleeding -Continue statin -Continue abx's Consultation Date/Type/Reason Admit Date/Time Jan 10, 2019 at 17:45 Initial Consult Date 01/10/19 Type of Consult Cardiology Reason for Consultation CHF Requesting Provider: IVAN AKHTAR MD Date/Time of Note DATE: 01/15/19 TIME: 17:09 Exam/Review of Systems Vital Signs Vitals Vital Signs Date Temp Pulse Resp B/P (MAP) Pulse Ox O2 O2 Flow FiO2 Time Delivery Rate 01/15/19 75 17 100 Nasal 2.0 14:52 Cannula 01/15/19 98.8 140/71 14:00 (94) Intake and Output 01/14/19 01/14/19 01/15/19 1515:00 23:00 07:00 IntakeIntake Total 420 ml 280 ml OutputOutput Total 800 ml 480 ml BalanceBalance -380 ml -200 ml Exam Exam Review of Systems: CONSTITUTIONAL: No fevers, chills. PULMONARY: No sob CARDIOVASCULAR: No chest pain/palpitations GASTROINTESTINAL: No nausea/vomiting. GENITOURINARY: No hematuria/dysuria. MUSCULOSKELETAL: No myagias/arthalgias. PSYCHIATRIC: The patient denies depression. NEUROLOGIC: No weakness Constitutional: alert Psych: no complaints Head: normocephalic ENMT: mucosa pink and moist Neck: supple, jvd (9 cm water) Respiratory: diminished breath sounds Cardiovascular: regular rate and rhythm Gastrointestinal: soft, non-tender Musculoskeletal: muscle tone (normal) Extremities: edema (none) Neurological: other (No focal deficits) Labs Result Diagram: 01/15/19 0645 01/15/19 0645 Results 24hrs Laboratory Tests Test 01/14/19 17:35 01/14/19 21:51 01/15/19 02:56 01/15/19 06:45 Bedside Glucose 158 195 132 White Blood Count 19.7 H Red Blood Count 2.47 L Hemoglobin 7.2 L Hematocrit 22.6 L Mean Corpuscular 91.5 Volume Mean Corpuscular 29.1 Hemoglobin Mean Corpuscular 31.9 L Hemoglobin Concent Red Cell 17.9 H Distribution Width Platelet Count 243 Mean Platelet Volume 10.4 Immature 1.700 H Granulocytes % Neutrophils % 79.4 H Lymphocytes % 7.9 L Monocytes % 9.8 Eosinophils % 1.0 Basophils % 0.2 Nucleated Red Blood 0.2 H Cells % Immature 0.340 H Granulocytes # Neutrophils # 15.6 H Lymphocytes # 1.6 Monocytes # 1.9 H Eosinophils # 0.2 Basophils # 0.0 Nucleated Red Blood 0.0 Cells # Sodium Level 136 Potassium Level 4.5 Chloride Level 105 Carbon Dioxide Level 23 Anion Gap 8 Blood Urea Nitrogen 42 H Creatinine 1.40 H Est Glomerular Filtrat Rate mL/min Glucose Level 122 Calcium Level 8.3 L Phosphorus Level 2.6 Magnesium Level 1.6 L Total Bilirubin 0.6 Direct Bilirubin 0.00 Indirect Bilirubin 0.6 Aspartate Amino 12 L Transf (AST/SGOT) Alanine 21 Aminotransferase (AL T/SGPT) Alkaline Phosphatase 64 Total Protein 5.2 L Albumin 2.4 L Globulin 2.80 Albumin/Globulin 0.85 Ratio Test 01/15/19 07:52 01/15/19 12:11 Bedside Glucose 131 177 Medications Medications Current Medications Docusate Sodium (Colace) 100 mg BID PO Last administered on 01/15/19at 08:46; Admin Dose 100 MG; Start 01/10/19 at 21:00 Senna (Senokot) 1 tab HS PO Last administered on 01/14/19at 21:41; Admin Dose 1 TAB; Start 01/10/19 at 21:00 Lactulose (Enulose) 20 gm DAILY PRN PO CONSTIPATION Last administered on 01/12/19at 15:37; Admin Dose 20 GM; Start 01/10/19 at 19:00 Acetaminophen (Tylenol Tab) 650 mg Q4H PRN PO PAIN Last administered on 01/14/19 21:47; Admin Dose 650 MG; Start 01/10/19 at 19:00 Miscellaneous Information (Pending Santyl Order For Wound Care) This patient ramirez... PRN PRN XX WOUND CARE; Start 01/10/19 at 19:00 Diagnostic Test (Pha) (Accu-Chek) 1 ea AC MEALS AND BEDTIME XX Last administered on 01/15/19 12:12; Admin Dose 1 EA; Start 01/10/19 at 21:00 Diagnostic Test (Pha) (Accu-Chek) 1 ea 02 XX Last administered on 01/15/19 02:46; Admin Dose 1 EA; Start 01/11/19 at 02:00 Albuterol/ Ipratropium (Duoneb) 3 ml Q2H RESP THERAPY PRN HHN SHORTNESS OF BREATH Last administered on 01/11/19 09:39; Admin Dose 3 ML; Start 01/10/19 at 19:30 Atorvastatin Calcium (Lipitor) 40 mg QHS PO Last administered on 01/14/19 21:41; Admin Dose 40 MG; Start 01/10/19 at 21:00 Bisacodyl (Dulcolax) 10 mg BID PRN PO CONSTIPATION; Start 01/10/19 at 19:30 Folic Acid (Folic Acid) 1 mg DAILY PO Last administered on 01/15/19 08:46; Admin Dose 1 MG; Start 01/11/19 at 09:00 Insulin Aspart (Novolog Insulin Pen) NOVOLOG *MILD* ALGORITHM WITH MEALS BEDTIME SC Last administered on 01/15/19 12:17; Admin Dose 1 UNIT; Start 01/10/19 at 21:00 Insulin Glargine (Lantus) 10 units QHS SC Last administered on 01/10/19 21:59; Admin Dose 10 UNITS; Start 01/10/19 at 21:00; Status Hold Latanoprost (Xalatan) 1 drop HS BOTH EYES Last administered on 01/14/19 21:47; Admin Dose 1 DROP; Start 01/10/19 at 21:00 Levothyroxine Sodium (Synthroid) 125 mcg BEFORE BREAKFAST PO Last administered on 01/15/19 06:28; Admin Dose 125 MCG; Start 01/11/19 at 07:00 Metoprolol Tartrate (Lopressor) 50 mg BID PO Last administered on 01/15/19 08:49; Admin Dose 50 MG; Start 01/10/19 at 21:00 Nitroglycerin (Nitroglycerin (Sl Tab) 0.4 Mg) 0.4 tab Q5M PRN SL CHEST PAIN; Start 01/10/19 at 19:30 Nystatin/ Triamcinolone Acetonide (Mycolog Cr) 1 applic BID TOP Last administered on 01/15/19 09:09; Admin Dose 1 APPLIC; Start 01/10/19 at 21:00 Nystatin (Nystatin Powder) 1 applic BID TOP Last administered on 01/15/19 09:09; Admin Dose 1 APPLIC; Start 01/10/19 at 21:00 Pantoprazole (Protonix Tab) 40 mg DAILY@06 PO Last administered on 01/15/19 06:28; Admin Dose 40 MG; Start 01/11/19 at 06:00 Polyethylene Glycol (Miralax) 17 gm DAILY PO Last administered on 01/15/19 08:46; Admin Dose 17 GM; Start 01/11/19 at 09:00 Pregabalin (Lyrica) 25 mg TID PO Last administered on 01/15/19 13:15; Admin Dose 25 MG; Start 01/10/19 at 21:00 IV Flush (NS 3 ml) 3 ml PER PROTOCOL IV ; Start 01/10/19 at 19:30 Terazosin HCl (Hytrin) 10 mg HS PO Last administered on 01/14/19 21:42; Admin Dose 10 MG; Start 01/10/19 at 21:00 Miscellaneous Information 1 ea NOTE XX ; Start 01/10/19 at 19:30 Glucose (Glutose) 15 gm Q15M PRN PO DECREASED GLUCOSE; Start 01/10/19 at 19:30 Glucose (Glutose) 22.5 gm Q15M PRN PO DECREASED GLUCOSE; Start 01/10/19 at 19:30 Dextrose (D50w Syringe) 25 ml Q15M PRN IV DECREASED GLUCOSE; Start 01/10/19 at 19:30 Dextrose (D50w Syringe) 50 ml Q15M PRN IV DECREASED GLUCOSE; Start 01/10/19 at 19:30 Glucagon (Glucagen) 1 mg Q15M PRN IM DECREASED GLUCOSE; Start 01/10/19 at 19:30 Glucose (Glutose) 15 gm Q15M PRN BUCCAL DECREASED GLUCOSE; Start 01/10/19 at 19:30 Multivitamins Therapeutic (Theragran) 1 tab DAILY PO Last administered on 01/15/19 08:46; Admin Dose 1 TAB; Start 01/12/19 at 09:00 Zinc Sulfate (Zinc Sulfate) 220 mg DAILY PO Last administered on 01/15/19 08: 46; Admin Dose 220 MG; Start 01/12/19 at 09:00 Ascorbic Acid (Vitamin C) 250 mg DAILY PO Last administered on 01/15/19 08:46; Admin Dose 250 MG; Start 01/12/19 at 13:00 Albuterol/ Ipratropium (Duoneb) 3 ml Q6H RESP THERAPY HHN Last administered on 01/15/19 14:49; Admin Dose 3 ML; Start 01/11/19 at 20:00 Multi-Ingredient Ointment (Aquaphor Oint 52.5 Gm) 1 applic BID TOP Last administered on 01/15/19 09:09; Admin Dose 1 APPLIC; Start 01/13/19 at 13:30 Aspirin (Aspirin) 81 mg DAILY PO Last administered on 01/15/19 08:46; Admin Dose 81 MG; Start 01/14/19 at 09:00 Ferrous Sulfate (Ferrous Sulfate (Ec)) 325 mg WITH MEALS PO Last administered on 01/15/19 12:20; Admin Dose 325 MG; Start 01/13/19 at 17:35 Bisacodyl (Dulcolax Supp) 10 mg DAILY PRN [place] CONSTIPATION Last administered on 01/14/19 14:21; Admin Dose 10 MG; Start 01/13/19 at 17:00 Furosemide (Lasix) 20 mg DAILY PO Last administered on 01/15/19 08:49; Admin Dose 20 MG; Start 01/14/19 at 09:00 Acetaminophen/ Hydrocodone Bitart ([place] (5/325)) 1 tab Q4H PRN PO MODERATE PAIN LEVEL 4-6 Last administered on 01/15/19 07:52; Admin Dose 1 TAB; Start 01/14/19 at 13:00 Acetaminophen/ Hydrocodone Bitart ([place] (5/325)) 2 tab Q4H PRN PO SEVERE PAIN LEVEL 7-10 Last administered on 01/15/19at 13:15; Admin Dose 2 TAB; Start at 13:00 Caspofungin 50 mg/ Sodium Chloride 250 ml @ 250 mls/hr Q24H IVPB ; Start 01/16/19 at 15:00 MARJORIE JAIN Jan 15, 2019 17:10
[2019-01-15 19:53] VITALS: BP 135/62; PULSE 89; RESP 18
[2019-01-15] MEDS: LATANOPROST 0.005% 2.5 ML OPH BOTH EYES SCH (21:07)
[2019-01-15] MEDS: SENNA TAB PO SCH (21:07)
[2019-01-15] MEDS: TERAZOSIN 5 MG CAP PO SCH (21:08)
[2019-01-15] MEDS: ATORVASTATIN 40 MG TAB PO SCH (21:08)
[2019-01-16] MEDS: ALBUTEROL/IPRATROPIUM (NEB) 3 ML AMP HHN SCH ×4 (01:32→20:31)
[2019-01-16] MEDS: HYDROCODONE/APAP (5/325) TAB PO PRN ×3 (01:45→17:51)
[2019-01-16 02:00] VITALS: BP 138/68; PULSE 92; RESP 18
[2019-01-16] MEDS: ACCU-CHEK XX SCH ×5 (02:00→21:00)
[2019-01-16] MEDS: LEVOTHYROXINE 125 MCG TAB PO SCH (06:36)
[2019-01-16] MEDS: PANTOPRAZOLE (EC) 40 MG TAB PO SCH (06:36)
[2019-01-16 07:00] VITALS: BP 127/60; PULSE 74; RESP 18
--- NOTE | 2019-01-16 07:14 | CONS ---
DATE OF ADMISSION: 01/10/2019 DATE OF CONSULTATION: 01/15/2019 TYPE OF CONSULTATION: Psychological. REFERRING PHYSICIAN: Deepali Meneses MD CONSULTING PSYCHOLOGIST: Lesley Mckay, PhD REASON FOR CONSULTATION: This consultation was requested by Dr. Hugh Meneses in order to evaluate t he cognitive and emotional functioning of this patient related to his present medical condition. HISTORY OF PRESENT ILLNESS: The patient is an 88-year-old male with history of multiple medical prob lems. The patient was admitted to the hospital with a skin rash, fever, shortness of breath, and wea kness. The patient was eventually cleared medically and sent to the acute rehabilitation unit for [facility] rehabilitation. The patient is motivated to get better, but at this point is s lightly confused and having difficulty dealing with hip and knee pain. The patient reports that his hip and knee pain at the present time are 10. The patient says he is frustrated. Overall, the patie nt is motivated and wants to do whatever he can to return to his previous level of functioning. The patient does have severe rheumatoid arthritis. It does affect multiple joints and increasing pain. FAMILY AND SOCIAL HISTORY: The patient lives in a home in [place] with his daughter. The patient d oes want to return there after discharge. MEDICATIONS: The patient is currently not on any psychotropic medications. SUBSTANCE USE: The patient reports that he does not smoke. The patient reports that he does not use alcohol or other drugs. MENTAL STATUS EXAMINATION: APPEARANCE: The patient was seen in bed. He appears to be of average height and weight. The patien t is right-handed. The patient was on oxygen. The patient reports that he is on oxygen at home as w ell. BEHAVIOR: The patient was cooperative during the consultation. The patient did attempt to answer al l questions presented to him by the interviewer. The patient was a little confused and did have diff iculty with some of the questions. MOOD AND AFFECT: The patient's mood appears to be slightly depressed. Affect does appear to be slig htly anxious. The patient reports that he is frustrated more than anxious and depressed. PERCEPTION: The patient reports no hallucinations or delusions. The patient was alert to person, pl ericka, situation and to time. MEMORY AND COGNITION: The patient's memory and cognition appear to have some impairments. He was ab le to kind of remember recent and remote events, but was not clear with them. He was able to say the name of the hospital, but he only could come up with the first part of "[facility]". He could not come up with the rest of the name of the hospital. Originally, he thought it was December 2019, but then he did correct to 2018. The patient was able to say who the circular tank cooper is but could not say who the governor of the State [facility], or the mayor of the [facility] are. The patient coul d not spell world forward, and he was unable to spell it backwards; he spelled it "[id number]". The renetta ojeda was able to do 1 serial 7 subtraction from 100. He made a mistake, but then eventually was able to correct it for 1 time, then he made 2 more mistakes and could not go any further. Overall, the robby oliveira does appear to have some mild cognitive impairment at the present time. INTELLIGENCE: Intelligence would appear to fall in the average range when he was functioning well. INSIGHT: Poor. JUDGMENT: Poor. THOUGHT CONTENT: The patient is concerned about his present medical condition. He does want to retu rn home and return to his previous level of functioning. The patient is confused and still motivated to try to help himself. DISCUSSION: The patient can likely benefit from some cognitive/behavioral psychotherapy while he is on the unit. This psychotherapy would focus on his underlying level of confusion and his frustration regarding all his medical problems. The patient probably could use some work with the memory book a nd trying to work with his cognitive functioning. DIAGNOSTIC IMPRESSION: 1. F06.31, mood disorder due to multiple medical problems with depressive features. 2. F06.8, cognitive disorder, not otherwise specified. Thank you very much, Dr. Hugh Meneses, for referring this individual. Please do not hesitate to tri collazo if you have any additional questions. Dictated By: LESLEY MCKAY PHD RK/SUZIE Conf#: [id number] DID#: [id number] CC: DEEPALI MENESES MD;*EndCC*
[2019-01-16] MEDS: FERROUS SULFATE (EC) 325 MG TAB PO SCH ×3 (07:38→17:44)
[2019-01-16] MEDS: INSULIN ASPART [NOVOLOG] 3 ML PEN SC SCH ×4 (07:40→21:00)
[2019-01-16] MEDS: FUROSEMIDE 20 MG TAB PO SCH (09:41)
[2019-01-16] MEDS: PREGABALIN 25 MG CAP PO SCH ×3 (09:41→21:18)
[2019-01-16] MEDS: ASCORBIC ACID 250 MG TAB PO SCH (09:41)
[2019-01-16] MEDS: ZINC SULFATE 220 MG CAP PO SCH (09:42)
[2019-01-16] MEDS: METOPROLOL 50 MG TAB PO SCH ×2 (09:42→21:20)
[2019-01-16] MEDS: FOLIC ACID 1 MG TAB PO SCH (09:42)
[2019-01-16] MEDS: AQUAPHOR 52.5 GM OINT TOP SCH ×2 (09:42→21:23)
[2019-01-16] MEDS: POLYETHYLENE GLYCOL 17 GM PACKET PO SCH (09:42)
[2019-01-16] MEDS: DOCUSATE SODIUM 100 MG CAP PO SCH ×2 (09:42→21:19)
[2019-01-16] MEDS: MULTIVITAMINS THERAPEUTIC TAB PO SCH (09:42)
[2019-01-16] MEDS: ASPIRIN 81 MG TAB PO SCH (09:42)
[2019-01-16] MEDS: NYSTATIN 30 GM POWDER BTL TOP SCH ×2 (09:43→21:23)
[2019-01-16] MEDS: BALSAM PERU/CASTOR OIL 60 GM TUBE TOP SCH ×2 (09:43→21:23)
[2019-01-16] MEDS: NYSTATIN/TRIAMCINOLONE 15 GM CR TOP SCH ×2 (09:43→21:27)
--- NOTE | 2019-01-16 12:42 | PN ---
Date/Time of Note Date/Time of Note DATE: 01/16/19 TIME: 12:42 Subjective Patient cold, diffuse pain Objective Vital Signs Date Temp Pulse Resp B/P (MAP) Pulse Ox O2 O2 Flow FiO2 Time Delivery Rate 01/16/19 86 18 98 Nasal 2.0 07:44 Cannula 01/16/19 98.1 127/60 07:00 (82) Intake and Output 01/15/19 01/15/19 01/16/19 1515:00 23:00 07:00 IntakeIntake Total 1330 ml 200 ml OutputOutput Total 400 ml BalanceBalance 930 ml 200 ml Exam pulm-cta abd-soft Results/Medications Result Diagram: 01/16/19 0609 01/16/19 0609 Results 24 hrs Laboratory Tests Test 01/15/19 17:28 01/15/19 18:34 01/15/19 20:59 01/16/19 06:09 Bedside Glucose 161 135 151 White Blood Count 16.7 H Red Blood Count 2.44 L Hemoglobin 7.0 L Hematocrit 22.7 L Mean Corpuscular 93.0 Volume Mean Corpuscular 28.7 L Hemoglobin Mean Corpuscular 30.8 L Hemoglobin Concent Red Cell 18.0 H Distribution Width Platelet Count 231 Mean Platelet Volume 10.7 H Immature 1.500 H Granulocytes % Neutrophils % 77.7 H Lymphocytes % 9.3 L Monocytes % 10.0 Eosinophils % 1.3 Basophils % 0.2 Nucleated Red Blood 0.2 H Cells % Immature 0.250 H Granulocytes # Neutrophils # 13.0 H Lymphocytes # 1.6 Monocytes # 1.7 H Eosinophils # 0.2 Basophils # 0.0 Nucleated Red Blood 0.0 Cells # Sodium Level 135 Potassium Level 4.8 Chloride Level 104 Carbon Dioxide Level 25 Anion Gap 6 Blood Urea Nitrogen 45 H Creatinine 1.37 H Est Glomerular Filtrat Rate mL/min Glucose Level 98 Calcium Level 8.1 L Test 01/16/19 07:37 01/16/19 11:44 Bedside Glucose 144 282 H Medications Current Medications Docusate Sodium (Colace) 100 mg BID PO Last administered on 01/16/19at 09:42; Admin Dose 100 MG; Start 01/10/19 at 21:00 Senna (Senokot) 1 tab HS PO Last administered on 01/15/19at 21:07; Admin Dose 1 TAB; Start 01/10/19 at 21:00 Lactulose (Enulose) 20 gm DAILY PRN PO CONSTIPATION Last administered on 01/12/19 15:37; Admin Dose 20 GM; Start 01/10/19 at 19:00 Acetaminophen (Tylenol Tab) 650 mg Q4H PRN PO PAIN Last administered on 01/14/19 21:47; Admin Dose 650 MG; Start 01/10/19 at 19:00 Miscellaneous Information (Pending [facility] Order For Wound Care) This patient ramirez... PRN PRN XX WOUND CARE; Start 01/10/19 at 19:00 Diagnostic Test (Pha) (Accu-Chek) 1 ea AC MEALS AND BEDTIME XX Last administered on 01/16/19 11:55; Admin Dose 1 EA; Start 01/10/19 at 21:00 Diagnostic Test (Pha) (Accu-Chek) 1 ea 02 XX Last administered on 01/15/19 02:46; Admin Dose 1 EA; Start 01/11/19 at 02:00 Albuterol/ Ipratropium (Duoneb) 3 ml Q2H RESP THERAPY PRN HHN SHORTNESS OF BREATH Last administered on 01/11/19 09:39; Admin Dose 3 ML; Start 01/10/19 at 19:30 Atorvastatin Calcium (Lipitor) 40 mg QHS PO Last administered on 01/15/19 21:08; Admin Dose 40 MG; Start 01/10/19 at 21:00 Bisacodyl (Dulcolax) 10 mg BID PRN PO CONSTIPATION; Start 01/10/19 at 19:30 Folic Acid (Folic Acid) 1 mg DAILY PO Last administered on 01/16/19 09:42; Admin Dose 1 MG; Start 01/11/19 at 09:00 Insulin Aspart (Novolog Insulin Pen) NOVOLOG *MILD* ALGORITHM WITH MEALS BEDTIME SC Last administered on 01/16/19 11:56; Admin Dose 4 UNIT; Start 01/10/19 at 21:00 Insulin Glargine (Lantus) 10 units QHS SC Last administered on 01/10/19 21:59; Admin Dose 10 UNITS; Start 01/10/19 at 21:00; Status Hold Latanoprost (Xalatan) 1 drop HS BOTH EYES Last administered on 01/15/19 21:07; Admin Dose 1 DROP; Start 01/10/19 at 21:00 Levothyroxine Sodium (Synthroid) 125 mcg BEFORE BREAKFAST PO Last administered on 01/16/19 06:36; Admin Dose 125 MCG; Start 01/11/19 at 07:00 Metoprolol Tartrate (Lopressor) 50 mg BID PO Last administered on 01/16/19 09:42; Admin Dose 50 MG; Start 01/10/19 at 21:00 Nitroglycerin (Nitroglycerin (Sl Tab) 0.4 Mg) 0.4 tab Q5M PRN SL CHEST PAIN; S tart 01/10/19 at 19:30 Nystatin/ Triamcinolone Acetonide (Mycolog Cr) 1 applic BID TOP Last administ ered on 01/16/19 09:43; Admin Dose 1 APPLIC; Start 01/10/19 at 21:00 Nystatin (Nystatin Powder) 1 applic BID TOP Last administered on 01/16/19 09:43; Admin Dose 1 APPLIC; Start 01/10/19 at 21:00 Pantoprazole (Protonix Tab) 40 mg DAILY@06 PO Last administered on 01/16/19 06:36; Admin Dose 40 MG; Start 01/11/19 at 06:00 Polyethylene Glycol (Miralax) 17 gm DAILY PO Last administered on 01/16/19 09:42; Admin Dose 17 GM; Start 01/11/19 at 09:00 Pregabalin (Lyrica) 25 mg TID PO Last administered on 01/16/19 12:13; Admin Dose 25 MG; Start 01/10/19 at 21:00 IV Flush (NS 3 ml) 3 ml PER PROTOCOL IV ; Start 01/10/19 at 19:30 Terazosin HCl (Hytrin) 10 mg HS PO Last administered on 01/15/19 21:08; Admin Dose 10 MG; Start 01/10/19 at 21:00 Miscellaneous Information 1 ea NOTE XX ; Start 01/10/19 at 19:30 Glucose (Glutose) 15 gm Q15M PRN PO DECREASED GLUCOSE; Start 01/10/19 at 19:30 Glucose (Glutose) 22.5 gm Q15M PRN PO DECREASED GLUCOSE; Start 01/10/19 at 19:30 Dextrose (D50w Syringe) 25 ml Q15M PRN IV DECREASED GLUCOSE; Start 01/10/19 at 19:30 Dextrose (D50w Syringe) 50 ml Q15M PRN IV DECREASED GLUCOSE; Start 01/10/19 at 19:30 Glucagon (Glucagen) 1 mg Q15M PRN IM DECREASED GLUCOSE; Start 01/10/19 at 19:30 Glucose (Glutose) 15 gm Q15M PRN BUCCAL DECREASED GLUCOSE; Start 01/10/19 at 19:30 Multivitamins Therapeutic (Theragran) 1 tab DAILY PO Last administered on 01/16/19 09:42; Admin Dose 1 TAB; Start 01/12/19 at 09:00 Zinc Sulfate (Zinc Sulfate) 220 mg DAILY PO Last administered on 01/16/19 09:42; Admin Dose 220 MG; Start 01/12/19 at 09:00 Ascorbic Acid (Vitamin C) 250 mg DAILY PO Last administered on 01/16/19 09:41; Admin Dose 250 MG; Start 01/12/19 at 13:00 Albuterol/ Ipratropium (Duoneb) 3 ml Q6H RESP THERAPY HHN Last administered on 01/16/19 07:43; Admin Dose 3 ML; Start 01/11/19 at 20:00 Multi-Ingredient Ointment (Aquaphor Oint 52.5 Gm) 1 applic BID TOP Last administered on 01/16/19 09:42; Admin Dose 1 APPLIC; Start 01/13/19 at 13:30 Aspirin (Aspirin) 81 mg DAILY PO Last administered on 01/16/19 09:42; Admin Dose 81 MG; Start 01/14/19 at 09:00 Ferrous Sulfate (Ferrous Sulfate (Ec)) 325 mg WITH MEALS PO Last administered on 01/16/19 11:56; Admin Dose 325 MG; Start 01/13/19 at 17:35 Bisacodyl (Dulcolax Supp) 10 mg DAILY PRN [place] CONSTIPATION Last administered on 01/14/19 14:21; Admin Dose 10 MG; Start 01/13/19 at 17:00 Furosemide (Lasix) 20 mg DAILY PO Last administered on 01/16/19 09:41; Admin Dose 20 MG; Start 01/14/19 at 09:00 Acetaminophen/ Hydrocodone Bitart ([place] (5/325)) 1 tab Q4H PRN PO MODERATE PAIN LEVEL 4-6 Last administered on 01/15/19at 07:52; Admin Dose 1 TAB; Start 01/14/19 at 13:00 Acetaminophen/ Hydrocodone Bitart ([place] (5/325)) 2 tab Q4H PRN PO SEVERE PAIN LEVEL 7-10 Last administered on 01/16/19at 09:47; Admin Dose 2 TAB; Start 01/14/19 at 13:00 Caspofungin 50 mg/ Sodium Chloride 250 ml @ 250 mls/hr Q24H IVPB ; Start 01/16/19 at 15:00 Assessment/Plan Additional Assessment/Plan Severe rheumatoid arthritis affecting multiple joints with decreased range of motion; Critical illness myopathy. Activities as tolerated. Patient with limited participation due to sepsis ID- sepsis, pneumonia- WBC continues trending upward. abx per IM Congestive heart failure. Degenerative disk disease. Coronary artery disease with history of coronary artery bypass graft x2; afib Peripheral vascular disease. Chronic obstructive pulmonary disease. Acute on chronic kidney disease. Hypertension. Hyperlipidemia. Dermatologic irritation with skin excoriation, moisture related fissure in the sacral region, and diffuse epidermal desquamation. Gastritis. Urinary retention with a Wade catheter. Diabetes mellitus type 2, labile. DEEPALI MARC MD Jan 16, 2019 12:42
--- NOTE | 2019-01-16 13:53 | CONS ---
Assessment/Plan Assessment/Plan Hospital Course (Demo Recall) IMPRESSION: 1. Atrial fibrillation, currently rate controlled.-off systemic anticoagulation due to anemia. ON asa 2. Possible congestive heart failure by chest x-ray, which will be diastolic, acute on chronic by most recent echo with an EF of 60%. 3. Tricuspid regurgitation, moderate by most recent echo. 4. Acute on chronic renal failure. 5. Possible pneumonia. 6. History of coronary artery disease, status post coronary artery bypass graft surgery. 7. Dyslipidemia. 8. Rheumatoid arthritis. 9. Groin cellulitis. 10. Anemia-worsening requiring transfusions PRBC's.Now post-op s/p endoscopy ? findings 11. Diabetes mellitus. Recc: -Tele -serial ecg's -Continue BB's -Holding anticoagulation in the setting of anemia requiring transfusions. Now s/p endoscopy. ? results, ? ability to resume anticoagulation for AF and thus have resumed asa only for now and will follow for recurrent bleeding -Continue statin -Continue abx's Consultation Date/Type/Reason Admit Date/Time Jan 10, 2019 at 17:45 Initial Consult Date 01/10/19 Type of Consult Cardiology Reason for Consultation CHF Requesting Provider: IVAN AKHTAR MD Date/Time of Note DATE: 01/16/19 TIME: 13:51 Exam/Review of Systems Vital Signs Vitals Vital Signs Date Temp Pulse Resp B/P (MAP) Pulse Ox O2 O2 Flow FiO2 Time Delivery Rate 01/16/19 76 18 100 Nasal 2.0 13:35 Cannula 01/16/19 98.1 127/60 07:00 (82) Intake and Output 01/15/19 01/15/19 01/16/19 1515:00 23:00 07:00 IntakeIntake Total 1330 ml 200 ml OutputOutput Total 400 ml BalanceBalance 930 ml 200 ml Exam Exam Review of Systems: CONSTITUTIONAL: No fevers, chills. PULMONARY: No sob CARDIOVASCULAR: No chest pain/palpitations GASTROINTESTINAL: No nausea/vomiting. GENITOURINARY: No hematuria/dysuria. MUSCULOSKELETAL: No myagias/arthalgias. PSYCHIATRIC: The patient denies depression. NEUROLOGIC: mild generalized weakness Constitutional: alert Psych: no complaints Head: normocephalic ENMT: mucosa pink and moist Neck: supple, jvd (9 cm water) Respiratory: diminished breath sounds (at bases/B) Cardiovascular: regular rate and rhythm Gastrointestinal: soft, non-tender Musculoskeletal: muscle weakness (mild generalized) Extremities: edema (none) Neurological: other (NO focal deficits) Labs Result Diagram: 01/16/19 0609 01/16/19 0609 Results 24hrs Laboratory Tests Test 01/15/19 17:28 01/15/19 18:34 01/15/19 20:59 01/16/19 06:09 Bedside Glucose 161 135 151 White Blood Count 16.7 H Red Blood Count 2.44 L Hemoglobin 7.0 L Hematocrit 22.7 L Mean Corpuscular 93.0 Volume Mean Corpuscular 28.7 L Hemoglobin Mean Corpuscular 30.8 L Hemoglobin Concent Red Cell 18.0 H Distribution Width Platelet Count 231 Mean Platelet Volume 10.7 H Immature 1.500 H Granulocytes % Neutrophils % 77.7 H Lymphocytes % 9.3 L Monocytes % 10.0 Eosinophils % 1.3 Basophils % 0.2 Nucleated Red Blood 0.2 H Cells % Immature 0.250 H Granulocytes # Neutrophils # 13.0 H Lymphocytes # 1.6 Monocytes # 1.7 H Eosinophils # 0.2 Basophils # 0.0 Nucleated Red Blood 0.0 Cells # Sodium Level 135 Potassium Level 4.8 Chloride Level 104 Carbon Dioxide Level 25 Anion Gap 6 Blood Urea Nitrogen 45 H Creatinine 1.37 H Est Glomerular Filtrat Rate mL/min Glucose Level 98 Calcium Level 8.1 L Test 01/16/19 07:37 01/16/19 11:44 Bedside Glucose 144 282 H Medications Medications Current Medications Docusate Sodium (Colace) 100 mg BID PO Last administered on 01/16/19at 09:42; Admin Dose 100 MG; Start 01/10/19 at 21:00 Senna (Senokot) 1 tab HS PO Last administered on 01/15/19 21:07; Admin Dose 1 TAB; Start 01/10/19 at 21:00 Lactulose (Enulose) 20 gm DAILY PRN PO CONSTIPATION Last administered on at 15:37; Admin Dose 20 GM; Start 01/10/19 at 19:00 Acetaminophen (Tylenol Tab) 650 mg Q4H PRN PO PAIN Last administered on 01/14/19 21:47; Admin Dose 650 MG; Start 01/10/19 at 19:00 Miscellaneous Information (Pending Santyl Order For Wound Care) This patient ramirez... PRN PRN XX WOUND CARE; Start 01/10/19 at 19:00 Diagnostic Test (Pha) (Accu-Chek) 1 ea AC MEALS AND BEDTIME XX Last administ ered on 01/16/19 11:55; Admin Dose 1 EA; Start 01/10/19 at 21:00 Diagnostic Test (Pha) (Accu-Chek) 1 ea 02 XX Last administered on 01/15/19 02:46; Admin Dose 1 EA; Start 01/11/19 at 02:00 Albuterol/ Ipratropium (Duoneb) 3 ml Q2H RESP THERAPY PRN HHN SHORTNESS OF BREATH Last administered on 01/11/19 09:39; Admin Dose 3 ML; Start 01/10/19 at 19:30 Atorvastatin Calcium (Lipitor) 40 mg QHS PO Last administered on 01/15/19 21:08; Admin Dose 40 MG; Start 01/10/19 at 21:00 Bisacodyl (Dulcolax) 10 mg BID PRN PO CONSTIPATION; Start 01/10/19 at 19:30 Folic Acid (Folic Acid) 1 mg DAILY PO Last administered on 01/16/19 09:42; Admin Dose 1 MG; Start 01/11/19 at 09:00 Insulin Aspart (Novolog Insulin Pen) NOVOLOG *MILD* ALGORITHM WITH MEALS BEDTIME SC Last administered on 01/16/19 11:56; Admin Dose 4 UNIT; Start 01/10/19 at 21:00 Insulin Glargine (Lantus) 10 units QHS SC Last administered on 01/10/19 21:59; Admin Dose 10 UNITS; Start 01/10/19 at 21:00; Status Hold Latanoprost (Xalatan) 1 drop HS BOTH EYES Last administered on 01/15/19 21:07; Admin Dose 1 DROP; Start 01/10/19 at 21:00 Levothyroxine Sodium (Synthroid) 125 mcg BEFORE BREAKFAST PO Last administered on 01/16/19 06:36; Admin Dose 125 MCG; Start 01/11/19 at 07:00 Metoprolol Tartrate (Lopressor) 50 mg BID PO Last administered on 01/16/19 09:42; Admin Dose 50 MG; Start 01/10/19 at 21:00 Nitroglycerin (Nitroglycerin (Sl Tab) 0.4 Mg) 0.4 tab Q5M PRN SL CHEST PAIN; Start 01/10/19 at 19:30 Nystatin/ Triamcinolone Acetonide (Mycolog Cr) 1 applic BID TOP Last administered on 01/16/19 09:43; Admin Dose 1 APPLIC; Start 01/10/19 at 21:00 Nystatin (Nystatin Powder) 1 applic BID TOP Last administered on 01/16/19 09:43; Admin Dose 1 APPLIC; Start 01/10/19 at 21:00 Pantoprazole (Protonix Tab) 40 mg DAILY@06 PO Last administered on 01/16/19 06:36; Admin Dose 40 MG; Start 01/11/19 at 06:00 Polyethylene Glycol (Miralax) 17 gm DAILY PO Last administered on 01/16/19 09:42; Admin Dose 17 GM; Start 01/11/19 at 09:00 Pregabalin (Lyrica) 25 mg TID PO Last administered on 01/16/19 12:13; Admin Dose 25 MG; Start 01/10/19 at 21:00 IV Flush (NS 3 ml) 3 ml PER PROTOCOL IV ; Start 01/10/19 at 19:30 Terazosin HCl (Hytrin) 10 mg HS PO Last administered on 01/15/19 21:08; Admin Dose 10 MG; Start 01/10/19 at 21:00 Miscellaneous Information 1 ea NOTE XX ; Start 01/10/19 at 19:30 Glucose (Glutose) 15 gm Q15M PRN PO DECREASED GLUCOSE; Start 01/10/19 at 19:30 Glucose (Glutose) 22.5 gm Q15M PRN PO DECREASED GLUCOSE; Start 01/10/19 at 19:30 Dextrose (D50w Syringe) 25 ml Q15M PRN IV DECREASED GLUCOSE; Start 01/10/19 at 19:30 Dextrose (D50w Syringe) 50 ml Q15M PRN IV DECREASED GLUCOSE; Start 01/10/19 at 19:30 Glucagon (Glucagen) 1 mg Q15M PRN IM DECREASED GLUCOSE; Start 01/10/19 at 19:30 Glucose (Glutose) 15 gm Q15M PRN BUCCAL DECREASED GLUCOSE; Start 01/10/19 at 19:30 Multivitamins Therapeutic (Theragran) 1 tab DAILY PO Last administered on 01/16/19 09:42; Admin Dose 1 TAB; Start 01/12/19 at 09:00 Zinc Sulfate (Zinc Sulfate) 220 mg DAILY PO Last administered on 01/16/19 09:42; Admin Dose 220 MG; Start 01/12/19 at 09:00 Ascorbic Acid (Vitamin C) 250 mg DAILY PO Last administered on 01/16/19 09:41; Admin Dose 250 MG; Start 01/12/19 at 13:00 Albuterol/ Ipratropium (Duoneb) 3 ml Q6H RESP THERAPY HHN Last administered on 01/16/19 13:35; Admin Dose 3 ML; Start 01/11/19 at 20:00 Multi-Ingredient Ointment (Aquaphor Oint 52.5 Gm) 1 applic BID TOP Last administered on 01/16/19 09:42; Admin Dose 1 APPLIC; Start 01/13/19 at 13:30 Aspirin (Aspirin) 81 mg DAILY PO Last administered on 01/16/19 09:42; Admin Dose 81 MG; Start 01/14/19 at 09:00 Ferrous Sulfate (Ferrous Sulfate (Ec)) 325 mg WITH MEALS PO Last administered on 01/16/19 11:56; Admin Dose 325 MG; Start 01/13/19 at 17:35 Bisacodyl (Dulcolax Supp) 10 mg DAILY PRN [place] CONSTIPATION Last administered on 01/14/19 14:21; Admin Dose 10 MG; Start 01/13/19 at 17:00 Furosemide (Lasix) 20 mg DAILY PO Last administered on 01/16/19 09:41; Admin Dose 20 MG; Start 01/14/19 at 09:00 Acetaminophen/ Hydrocodone Bitart ([place] (5/325)) 1 tab Q4H PRN PO MODERATE PAIN LEVEL 4-6 Last administered on 01/15/19 07:52; Admin Dose 1 TAB; Start 01/14/19 at 13:00 Acetaminophen/ Hydrocodone Bitart ([place] (5/325)) 2 tab Q4H PRN PO SEVERE PAIN LEVEL 7-10 Last administered on 01/16/19 09:47; Admin Dose 2 TAB; Start 01/14/19 at 13:00 Caspofungin 50 mg/ Sodium Chloride 250 ml @ 250 mls/hr Q24H IVPB ; Start 01/16/19 at 15:00 MARJORIE JAIN Jan 16, 2019 13:53
[2019-01-16 14:00] VITALS: BP 130/58; PULSE 72; RESP 18
[2019-01-16] MEDS: CASPOFUNGIN 50 MG in SOD CHLORIDE 0.9% 250 ML IVPB SCH (14:39)
--- NOTE | 2019-01-16 15:46 | CONS ---
Assessment/Plan Assessment/Plan Hospital Course (Demo Recall) Awake looks comfortable no fevers. WBC 16.7 neutrophils 77.7 BUN 45 creatinine 1.37 Microbiology: Blood and urine cultures remain negative Antimicrobials: Cancidas Allergy: Penicillin, sulfa Physical examination: Obese well-developed chronically ill-appearing - [place] man who is awake in no distress. Head atraumatic normocephalic sclera nonicteric. Neck is supple chest rise symmetrical breath sounds diminished bases. Heart: S1-S2. Abdomen obese soft bowel sounds present extremities without cyanosis, bilateral edema Assessment: 1. Systemic inflammatory response syndrome with ongoing leukocytosis, multifactorial 2. Status post pneumonia 3. Coronary artery disease/history of CABG 4. Advanced rheumatoid arthritis 5. Chronic atrial fibrillation 6. Diabetes 7. BPH 8. Bilateral groin fungal cellulitis 9. Acute on chronic anemia===> s/p EGD/colonoscopy 01/09/19 10. Status post right epididymitis 11. Pancreatic lesion per CT, rule out neoplasm Plan: Clinically stable, CT of the chest and abdomen reviewed, continue present care, antifungal therapy Consultation Date/Type/Reason Admit Date/Time Jan 10, 2019 at 17:45 Initial Consult Date Type of Consult id Requesting Provider: IVAN AKHTAR MD Date/Time of Note DATE: 01/16/19 TIME: 15:44 Exam/Review of Systems Exam Vitals Vital Signs Date Temp Pulse Resp B/P (MAP) Pulse Ox O2 O2 Flow FiO2 Time Delivery Rate 01/16/19 98.0 72 18 130/58 100 Nasal 2.0 14:00 (82) Cannula Intake and Output 01/15/19 01/15/19 01/16/19 1515:00 23:00 07:00 IntakeIntake Total 1330 ml 200 ml OutputOutput Total 400 ml BalanceBalance 930 ml 200 ml Results Result Diagram: 01/16/19 0609 01/16/19 0609 Results 24hrs Laboratory Tests Test 01/15/19 17:28 01/15/19 18:34 01/15/19 20:59 01/16/19 06:09 Bedside Glucose 161 135 151 White Blood Count 16.7 H Red Blood Count 2.44 L Hemoglobin 7.0 L Hematocrit 22.7 L Mean Corpuscular 93.0 Volume Mean Corpuscular 28.7 L Hemoglobin Mean Corpuscular 30.8 L Hemoglobin Concent Red Cell 18.0 H Distribution Width Platelet Count 231 Mean Platelet Volume 10.7 H Immature 1.500 H Granulocytes % Neutrophils % 77.7 H Lymphocytes % 9.3 L Monocytes % 10.0 Eosinophils % 1.3 Basophils % 0.2 Nucleated Red Blood 0.2 H Cells % Immature 0.250 H Granulocytes # Neutrophils # 13.0 H Lymphocytes # 1.6 Monocytes # 1.7 H Eosinophils # 0.2 Basophils # 0.0 Nucleated Red Blood 0.0 Cells # Sodium Level 135 Potassium Level 4.8 Chloride Level 104 Carbon Dioxide Level 25 Anion Gap 6 Blood Urea Nitrogen 45 H Creatinine 1.37 H Est Glomerular Filtrat Rate mL/min Glucose Level 98 Calcium Level 8.1 L Test 01/16/19 07:37 01/16/19 11:44 Bedside Glucose 144 282 H Medications Medication Current Medications Docusate Sodium (Colace) 100 mg BID PO Last administered on 01/16/19 09:42; Admin Dose 100 MG; Start 01/10/19 at 21:00 Senna (Senokot) 1 tab HS PO Last administered on 01/15/19 21:07; Admin Dose 1 TAB; Start 01/10/19 at 21:00 Lactulose (Enulose) 20 gm DAILY PRN PO CONSTIPATION Last administered on 01/12/19 15:37; Admin Dose 20 GM; Start 01/10/19 at 19:00 Acetaminophen (Tylenol Tab) 650 mg Q4H PRN PO PAIN Last administered on 01/14/19 21:47; Admin Dose 650 MG; Start 01/10/19 at 19:00 Miscellaneous Information (Pending [facility] Order For Wound Care) This patient ramirez... PRN PRN XX WOUND CARE; Start 01/10/19 at 19:00 Diagnostic Test (Pha) (Accu-Chek) 1 ea AC MEALS AND BEDTIME XX Last administered on 01/16/19 11:55; Admin Dose 1 EA; Start 01/10/19 at 21:00 Diagnostic Test (Pha) (Accu-Chek) 1 ea 02 XX Last administered on 01/15/19 02:46; Admin Dose 1 EA; Start 01/11/19 at 02:00 Albuterol/ Ipratropium (Duoneb) 3 ml Q2H RESP THERAPY PRN HHN SHORTNESS OF BREATH Last administered on 01/11/19 09:39; Admin Dose 3 ML; Start 01/10/19 at 19:30 Atorvastatin Calcium (Lipitor) 40 mg QHS PO Last administered on 01/15/19 21:08; Admin Dose 40 MG; Start 01/10/19 at 21:00 Bisacodyl (Dulcolax) 10 mg BID PRN PO CONSTIPATION; Start 01/10/19 at 19:30 Folic Acid (Folic Acid) 1 mg DAILY PO Last administered on 01/16/19 09:42; Admin Dose 1 MG; Start 01/11/19 at 09:00 Insulin Aspart (Novolog Insulin Pen) NOVOLOG *MILD* ALGORITHM WITH MEALS BEDTIME SC Last administered on 01/16/19 11:56; Admin Dose 4 UNIT; Start 01/10/19 at 21:00 Insulin Glargine (Lantus) 10 units QHS SC Last administered on 01/10/19 21:59; Admin Dose 10 UNITS; Start 01/10/19 at 21:00; Status Hold Latanoprost (Xalatan) 1 drop HS BOTH EYES Last administered on 01/15/19 21:07; Admin Dose 1 DROP; Start 01/10/19 at 21:00 Levothyroxine Sodium (Synthroid) 125 mcg BEFORE BREAKFAST PO Last administered on 01/16/19 06:36; Admin Dose 125 MCG; Start 01/11/19 at 07:00 Metoprolol Tartrate (Lopressor) 50 mg BID PO Last administered on 01/16/19 09:42; Admin Dose 50 MG; Start 01/10/19 at 21:00 Nitroglycerin (Nitroglycerin (Sl Tab) 0.4 Mg) 0.4 tab Q5M PRN SL CHEST PAIN; Start 01/10/19 at 19:30 Nystatin/ Triamcinolone Acetonide (Mycolog Cr) 1 applic BID TOP Last administered on 01/16/19 09:43; Admin Dose 1 APPLIC; Start 01/10/19 at 21:00 Nystatin (Nystatin Powder) 1 applic BID TOP Last administered on 01/16/19 09:43; Admin Dose 1 APPLIC; Start 01/10/19 at 21:00 Pantoprazole (Protonix Tab) 40 mg DAILY@06 PO Last administered on 01/16/19 06:36; Admin Dose 40 MG; Start 01/11/19 at 06:00 Polyethylene Glycol (Miralax) 17 gm DAILY PO Last administered on 01/16/19 09:42; Admin Dose 17 GM; Start 01/11/19 at 09:00 Pregabalin (Lyrica) 25 mg TID PO Last administered on 01/16/19 12:13; Admin Dose 25 MG; Start 01/10/19 at 21:00 IV Flush (NS 3 ml) 3 ml PER PROTOCOL IV ; Start 01/10/19 at 19:30 Terazosin HCl (Hytrin) 10 mg HS PO Last administered on 01/15/19 21:08; Admin Dose 10 MG; Start 01/10/19 at 21:00 Miscellaneous Information 1 ea NOTE XX ; Start 01/10/19 at 19:30 Glucose (Glutose) 15 gm Q15M PRN PO DECREASED GLUCOSE; Start 01/10/19 at 19:30 Glucose (Glutose) 22.5 gm Q15M PRN PO DECREASED GLUCOSE; Start 01/10/19 at 19:30 Dextrose (D50w Syringe) 25 ml Q15M PRN IV DECREASED GLUCOSE; Start 01/10/19 at 19:30 Dextrose (D50w Syringe) 50 ml Q15M PRN IV DECREASED GLUCOSE; Start 01/10/19 at 19:30 Glucagon (Glucagen) 1 mg Q15M PRN IM DECREASED GLUCOSE; Start 01/10/19 at 19:30 Glucose (Glutose) 15 gm Q15M PRN BUCCAL DECREASED GLUCOSE; Start 01/10/19 at 19:30 Multivitamins Therapeutic (Theragran) 1 tab DAILY PO Last administered on 01/16/19 09:42; Admin Dose 1 TAB; Start 01/12/19 at 09:00 Zinc Sulfate (Zinc Sulfate) 220 mg DAILY PO Last administered on 01/16/19 09:42; Admin Dose 220 MG; Start 01/12/19 at 09:00 Ascorbic Acid (Vitamin C) 250 mg DAILY PO Last administered on 01/16/19 09:41; Admin Dose 250 MG; Start 01/12/19 at 13:00 Albuterol/ Ipratropium (Duoneb) 3 ml Q6H RESP THERAPY HHN Last administered on 01/16/19 13:35; Admin Dose 3 ML; Start 01/11/19 at 20:00 Multi-Ingredient Ointment (Aquaphor Oint 52.5 Gm) 1 applic BID TOP Last administered on 01/16/19 09:42; Admin Dose 1 APPLIC; Start 01/13/19 at 13:30 Aspirin (Aspirin) 81 mg DAILY PO Last administered on 01/16/19 09:42; Admin D ose 81 MG; Start 01/14/19 at 09:00 Ferrous Sulfate (Ferrous Sulfate (Ec)) 325 mg WITH MEALS PO Last administered on 01/16/19 11:56; Admin Dose 325 MG; Start 01/13/19 at 17:35 Bisacodyl (Dulcolax Supp) 10 mg DAILY PRN [place] CONSTIPATION Last administered on 01/14/19 14:21; Admin Dose 10 MG; Start 01/13/19 at 17:00 Furosemide (Lasix) 20 mg DAILY PO Last administered on 01/16/19 09:41; Admin Dose 20 MG; Start 01/14/19 at 09:00 Acetaminophen/ Hydrocodone Bitart ([place] (5/325)) 1 tab Q4H PRN PO MODERATE PAIN LEVEL 4-6 Last administered on 01/15/19 07:52; Admin Dose 1 TAB; Start 01/14/19 at 13:00 Acetaminophen/ Hydrocodone Bitart ([place] (5/325)) 2 tab Q4H PRN PO SEVERE PAIN LEVEL 7-10 Last administered on 01/16/19 09:47; Admin Dose 2 TAB; Start 01/14/19 at 13:00 Caspofungin 50 mg/ Sodium Chloride 250 ml @ 250 mls/hr Q24H IVPB Last administered on 01/16/19 14:39; Admin Dose 250 MLS/HR; Start 01/16/19 at 15:00 LUCIAN HARKINS NP Jan 16, 2019 15:46
--- NOTE | 2019-01-16 17:03 | PN ---
Date/Time of Note Date/Time of Note DATE: 01/16/19 TIME: 17:01 Assessment/Plan VTE Prophylaxis Risk score (from Nsg)>0 risk: 7 SCD applied (from Ns): No SCD contraindicated: low risk/ambulating Pharmacological prophylaxis: NA/contraindicated Pharm contraindication: low risk/ambulating Lines/Catheters [facility] Urinary Cath still in place: Yes Reason Cath still needed: urinary retention Assessment/Plan Hospital Course 8 y/o with 1. Recent sepsis, SOB, weakness. Pt had recent bilateral pneumonia. 2. COPD, on oxygen at home 3. Acute on chronic renal failure likely secondary to sepsis C r had improved 4. Hypertension. 5. Hyperlipidemia. 6. Hypothyroidism. 7. Normocytic normochromic chronic anemia with recent hemoglobin drop in HG to 7.0, to day 6.9. S/p blood transfusion 8. Bilateral groin cellulitis more likely associated with mateus, patches in groin and axilla bilaterally. Back rash 9. History of rheumatoid arthritis with joint deformities. 10. Diabetes type 2. 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 Peripheral vascular disease. 13. Chronic a.fib 14. right arm edema 15 ansarca with hypoalbuminemia 16 Leukocytosis rising to 19, no fevers, joint pain/skin sloughing> wup send> known down to 16 Assessment/Plan - spoke to ID will start on caspofungin -cT of the abdomen and pelvis questionable pancreatic neoplasm will ask GI for further intervention, cannot not get contrast studies due to CKD -cw on low dose Lasix and monitor kidney function -DVT proph. unable to tolerate Eliquiz, SCD, restarted on aspirin -Monitor hemoglobin -GI prophylaxis Faotidine BID -pain control -c/w home meds -nyst cream BID axilla -supp. oxygen Result Diagram: 01/16/19 0609 01/16/19 0609 Results 24hrs Laboratory Tests Test 01/15/19 17:28 01/15/19 18:34 01/15/19 20:59 01/16/19 06:09 Bedside Glucose 161 135 151 White Blood Count 16.7 H Red Blood Count 2.44 L Hemoglobin 7.0 L Hematocrit 22.7 L Mean Corpuscular 93.0 Volume Mean Corpuscular 28.7 L Hemoglobin Mean Corpuscular 30.8 L Hemoglobin Concent Red Cell 18.0 H Distribution Width Platelet Count 231 Mean Platelet Volume 10.7 H Immature 1.500 H Granulocytes % Neutrophils % 77.7 H Lymphocytes % 9.3 L Monocytes % 10.0 Eosinophils % 1.3 Basophils % 0.2 Nucleated Red Blood 0.2 H Cells % Immature 0.250 H Granulocytes # Neutrophils # 13.0 H Lymphocytes # 1.6 Monocytes # 1.7 H Eosinophils # 0.2 Basophils # 0.0 Nucleated Red Blood 0.0 Cells # Sodium Level 135 Potassium Level 4.8 Chloride Level 104 Carbon Dioxide Level 25 Anion Gap 6 Blood Urea Nitrogen 45 H Creatinine 1.37 H Est Glomerular Filtrat Rate mL/min Glucose Level 98 Calcium Level 8.1 L Test 01/16/19 07:37 01/16/19 11:44 Bedside Glucose 144 282 H Subjective 24 Hr Interval Summary Free Text/Dictation leukoCytosis trending down Exam/Review of Systems Exam Vitals Vital Signs Date Temp Pulse Resp B/P (MAP) Pulse Ox O2 O2 Flow FiO2 Time Delivery Rate 01/16/19 98.0 72 18 130/58 100 Nasal 2.0 14:00 (82) Cannula Intake and Output 01/15/19 01/15/19 01/16/19 1515:00 23:00 07:00 IntakeIntake Total 1330 ml 200 ml OutputOutput Total 400 ml BalanceBalance 930 ml 200 ml Exam nstitutional: alert, oriented Head: normocephalic Eyes: nl conjunctiva Respiratory: normal air movement, diminished breath sounds Cardiovascular: regular rate and rhythm Gastrointestinal: soft Musculoskeletal: joint tenderness Diffuse skin rash edema arms>legs sloughing of skin edema Results Results 24hrs Laboratory Tests Test 01/15/19 17:28 01/15/19 18:34 01/15/19 20:59 01/16/19 06:09 Bedside Glucose 161 135 151 White Blood Count 16.7 H Red Blood Count 2.44 L Hemoglobin 7.0 L Hematocrit 22.7 L Mean Corpuscular 93.0 Volume Mean Corpuscular 28.7 L Hemoglobin Mean Corpuscular 30.8 L Hemoglobin Concent Red Cell 18.0 H Distribution Width Platelet Count 231 Mean Platelet Volume 10.7 H Immature 1.500 H Granulocytes % Neutrophils % 77.7 H Lymphocytes % 9.3 L Monocytes % 10.0 Eosinophils % 1.3 Basophils % 0.2 Nucleated Red Blood 0.2 H Cells % Immature 0.250 H Granulocytes # Neutrophils # 13.0 H Lymphocytes # 1.6 Monocytes # 1.7 H Eosinophils # 0.2 Basophils # 0.0 Nucleated Red Blood 0.0 Cells # Sodium Level 135 Potassium Level 4.8 Chloride Level 104 Carbon Dioxide Level 25 Anion Gap 6 Blood Urea Nitrogen 45 H Creatinine 1.37 H Est Glomerular Filtrat Rate mL/min Glucose Level 98 Calcium Level 8.1 L Test 01/16/19 07:37 01/16/19 11:44 Bedside Glucose 144 282 H Medications Medication Current Medications Docusate Sodium (Colace) 100 mg BID PO Last administered on 01/16/19 09:42; Admin Dose 100 MG; Start 01/10/19 at 21:00 Senna (Senokot) 1 tab HS PO Last administered on 01/15/19 21:07; Admin Dose 1 TAB; Start 01/10/19 at 21:00 Lactulose (Enulose) 20 gm DAILY PRN PO CONSTIPATION Last administered on 01/12/19 15:37; Admin Dose 20 GM; Start 01/10/19 at 19:00 Acetaminophen (Tylenol Tab) 650 mg Q4H PRN PO PAIN Last administered on 01/14/19 21:47; Admin Dose 650 MG; Start 01/10/19 at 19:00 Miscellaneous Information (Pending [facility] Order For Wound Care) This patient ramirez... PRN PRN XX WOUND CARE; Start 01/10/19 at 19:00 Diagnostic Test (Pha) (Accu-Chek) 1 ea AC MEALS AND BEDTIME XX Last admini stered on 01/16/19 11:55; Admin Dose 1 EA; Start 01/10/19 at 21:00 Diagnostic Test (Pha) (Accu-Chek) 1 ea 02 XX Last administered on 01/15/19 02:46; Admin Dose 1 EA; Start 01/11/19 at 02:00 Albuterol/ Ipratropium (Duoneb) 3 ml Q2H RESP THERAPY PRN HHN SHORTNESS OF BREATH Last administered on 01/11/19 09:39; Admin Dose 3 ML; Start 01/10/19 at 19:30 Atorvastatin Calcium (Lipitor) 40 mg QHS PO Last administered on 01/15/19 21:08; Admin Dose 40 MG; Start 01/10/19 at 21:00 Bisacodyl (Dulcolax) 10 mg BID PRN PO CONSTIPATION; Start 01/10/19 at 19:30 Folic Acid (Folic Acid) 1 mg DAILY PO Last administered on 01/16/19 09:42; Admin Dose 1 MG; Start 01/11/19 at 09:00 Insulin Aspart (Novolog Insulin Pen) NOVOLOG *MILD* ALGORITHM WITH MEALS BEDTIME SC Last administered on 01/16/19 11:56; Admin Dose 4 UNIT; Start 01/10/19 at 21:00 Insulin Glargine (Lantus) 10 units QHS SC Last administered on 01/10/19 21:59; Admin Dose 10 UNITS; Start 01/10/19 at 21:00; Status Hold Latanoprost (Xalatan) 1 drop HS BOTH EYES Last administered on 01/15/19 21:07; Admin Dose 1 DROP; Start 01/10/19 at 21:00 Levothyroxine Sodium (Synthroid) 125 mcg BEFORE BREAKFAST PO Last administered on 01/16/19 06:36; Admin Dose 125 MCG; Start 01/11/19 at 07:00 Metoprolol Tartrate (Lopressor) 50 mg BID PO Last administered on 01/16/19 09:42; Admin Dose 50 MG; Start 01/10/19 at 21:00 Nitroglycerin (Nitroglycerin (Sl Tab) 0.4 Mg) 0.4 tab Q5M PRN SL CHEST PAIN; Start 01/10/19 at 19:30 Nystatin/ Triamcinolone Acetonide (Mycolog Cr) 1 applic BID TOP Last administered on 01/16/19 09:43; Admin Dose 1 APPLIC; Start 01/10/19 at 21:00 Nystatin (Nystatin Powder) 1 applic BID TOP Last administered on 01/16/19 09:43; Admin Dose 1 APPLIC; Start 01/10/19 at 21:00 Pantoprazole (Protonix Tab) 40 mg DAILY@06 PO Last administered on 01/16/19 06:36; Admin Dose 40 MG; Start 01/11/19 at 06:00 Polyethylene Glycol (Miralax) 17 gm DAILY PO Last administered on 01/16/19 09:42; Admin Dose 17 GM; Start 01/11/19 at 09:00 Pregabalin (Lyrica) 25 mg TID PO Last administered on 01/16/19 12:13; Admin Dose 25 MG; Start 01/10/19 at 21:00 IV Flush (NS 3 ml) 3 ml PER PROTOCOL IV ; Start 01/10/19 at 19:30 Terazosin HCl (Hytrin) 10 mg HS PO Last administered on 01/15/19 21:08; Admin Dose 10 MG; Start 01/10/19 at 21:00 Miscellaneous Information 1 ea NOTE XX ; Start 01/10/19 at 19:30 Glucose (Glutose) 15 gm Q15M PRN PO DECREASED GLUCOSE; Start 01/10/19 at 19:30 Glucose (Glutose) 22.5 gm Q15M PRN PO DECREASED GLUCOSE; Start 01/10/19 at 19:30 Dextrose (D50w Syringe) 25 ml Q15M PRN IV DECREASED GLUCOSE; Start 01/10/19 at 19:30 Dextrose (D50w Syringe) 50 ml Q15M PRN IV DECREASED GLUCOSE; Start 01/10/19 at 19:30 Glucagon (Glucagen) 1 mg Q15M PRN IM DECREASED GLUCOSE; Start 01/10/19 at 19:30 Glucose (Glutose) 15 gm Q15M PRN BUCCAL DECREASED GLUCOSE; Start 01/10/19 at 19:30 Multivitamins Therapeutic (Theragran) 1 tab DAILY PO Last administered on 01/16/19 09:42; Admin Dose 1 TAB; Start 01/12/19 at 09:00 Zinc Sulfate (Zinc Sulfate) 220 mg DAILY PO Last administered on 01/16/19 09:42; Admin Dose 220 MG; Start 01/12/19 at 09:00 Ascorbic Acid (Vitamin C) 250 mg DAILY PO Last administered on 01/16/19 09:41; Admin Dose 250 MG; Start 01/12/19 at 13:00 Albuterol/ Ipratropium (Duoneb) 3 ml Q6H RESP THERAPY HHN Last administered on 01/16/19 13:35; Admin Dose 3 ML; Start 01/11/19 at 20:00 Multi-Ingredient Ointment (Aquaphor Oint 52.5 Gm) 1 applic BID TOP Last administered on 01/16/19 09:42; Admin Dose 1 APPLIC; Start 01/13/19 at 13:30 Aspirin (Aspirin) 81 mg DAILY PO Last administered on 01/16/19 09:42; Admin Dose 81 MG; Start 01/14/19 at 09:00 Ferrous Sulfate (Ferrous Sulfate (Ec)) 325 mg WITH MEALS PO Last administered on 01/16/19 11:56; Admin Dose 325 MG; Start 01/13/19 at 17:35 Bisacodyl (Dulcolax Supp) 10 mg DAILY PRN [place] CONSTIPATION Last administered on 01/14/19 14:21; Admin Dose 10 MG; Start 01/13/19 at 17:00 Furosemide (Lasix) 20 mg DAILY PO Last administered on 01/16/19 09:41; Admin Dose 20 MG; Start 01/14/19 at 09:00 Acetaminophen/ Hydrocodone Bitart ([place] (5/325)) 1 tab Q4H PRN PO MODERATE PAIN LEVEL 4-6 Last administered on 01/15/19 07:52; Admin Dose 1 TAB; Start 01/14/19 at 13:00 Acetaminophen/ Hydrocodone Bitart ([place] (5/325)) 2 tab Q4H PRN PO SEVERE PAIN LEVEL 7-10 Last administered on 01/16/19 09:47; Admin Dose 2 TAB; Start 01/14/19 at 13:00 Caspofungin 50 mg/ Sodium Chloride 250 ml @ 250 mls/hr Q24H IVPB Last administered on 01/16/19 14:39; Admin Dose 250 MLS/HR; Start 01/16/19 at 15:00 IVAN AKHTAR MD Jan 16, 2019 17:03
[2019-01-16 20:25] VITALS: BP 117/55; PULSE 80; RESP 20
[2019-01-16] MEDS: LATANOPROST 0.005% 2.5 ML OPH BOTH EYES SCH (21:18)
[2019-01-16] MEDS: ATORVASTATIN 40 MG TAB PO SCH (21:18)
[2019-01-16] MEDS: SENNA TAB PO SCH (21:19)
[2019-01-16] MEDS: TERAZOSIN 5 MG CAP PO SCH (21:20)
[2019-01-17] MEDS: ALBUTEROL/IPRATROPIUM (NEB) 3 ML AMP HHN SCH ×3 (01:34→15:05)
[2019-01-17] MEDS: ACCU-CHEK XX SCH ×3 (02:00→11:30)
[2019-01-17 02:11] VITALS: BP 128/59; PULSE 88; RESP 18
[2019-01-17] MEDS: HYDROCODONE/APAP (5/325) TAB PO PRN ×2 (04:19→12:04)
[2019-01-17] MEDS: LEVOTHYROXINE 125 MCG TAB PO SCH (06:29)
[2019-01-17] MEDS: PANTOPRAZOLE (EC) 40 MG TAB PO SCH (06:30)
[2019-01-17 07:30] VITALS: BP 125/61; PULSE 86; RESP 20
[2019-01-17] MEDS: INSULIN ASPART [NOVOLOG] 3 ML PEN SC SCH ×2 (07:35→12:04)
[2019-01-17] MEDS: ZINC SULFATE 220 MG CAP PO SCH (09:00)
[2019-01-17] MEDS: DOCUSATE SODIUM 100 MG CAP PO SCH (09:01)
[2019-01-17] MEDS: MULTIVITAMINS THERAPEUTIC TAB PO SCH (09:01)
[2019-01-17] MEDS: PREGABALIN 25 MG CAP PO SCH ×2 (09:02→14:45)
[2019-01-17] MEDS: ASPIRIN 81 MG TAB PO SCH (09:02)
[2019-01-17] MEDS: POLYETHYLENE GLYCOL 17 GM PACKET PO SCH (09:02)
[2019-01-17] MEDS: FOLIC ACID 1 MG TAB PO SCH (09:03)
[2019-01-17] MEDS: FUROSEMIDE 20 MG TAB PO SCH (09:04)
[2019-01-17] MEDS: METOPROLOL 50 MG TAB PO SCH (09:05)
[2019-01-17] MEDS: NYSTATIN/TRIAMCINOLONE 15 GM CR TOP SCH (09:06)
[2019-01-17] MEDS: FERROUS SULFATE (EC) 325 MG TAB PO SCH ×2 (09:06→12:51)
[2019-01-17] MEDS: NYSTATIN 30 GM POWDER BTL TOP SCH (09:07)
[2019-01-17] MEDS: ASCORBIC ACID 250 MG TAB PO SCH (10:46)
[2019-01-17] MEDS: AQUAPHOR 52.5 GM OINT TOP SCH (10:47)
[2019-01-17] MEDS: BALSAM PERU/CASTOR OIL 60 GM TUBE TOP SCH (10:48)
[2019-01-17] MEDS ORDERED: FUROSEMIDE 20 MG INJ IV ONE (11:00)
--- NOTE | 2019-01-17 13:43 | PN ---
Date/Time of Note Date/Time of Note DATE: 01/17/19 TIME: 13:40 Subjective Patient with diffuse pain Objective Vital Signs Date Temp Pulse Resp B/P (MAP) Pulse Ox O2 O2 Flow FiO2 Time Delivery Rate 01/17/19 85 18 99 1.0 09:29 01/17/19 97.9 125/61 Room Air 07:30 (82) Intake and Output 01/16/19 01/16/19 01/17/19 1515:00 23:00 07:00 IntakeIntake Total 550 ml 1450 ml OutputOutput Total 500 ml 600 ml 300 ml BalanceBalance 50 ml 850 ml -300 ml Exam pulm-cta max transfer Results/Medications Result Diagram: 01/17/19 0702 01/17/19 0702 Results 24 hrs Laboratory Tests Test 01/16/19 17:45 01/16/19 21:17 01/17/19 07:02 01/17/19 08:40 Bedside Glucose 162 170 119 White Blood Count 18.6 H Red Blood Count 2.19 L Hemoglobin 6.4 *L Hematocrit 20.4 L Mean Corpuscular 93.2 Volume Mean Corpuscular 29.2 Hemoglobin Mean Corpuscular 31.4 L Hemoglobin Concent Red Cell 18.0 H Distribution Width Platelet Count 232 Mean Platelet Volume 10.6 H Immature 1.000 H Granulocytes % Neutrophils % 79.7 H Segmented 96 H Neutrophils % (Manual) Lymphocytes % 7.7 L Lymphocytes % 4 L (Manual) Monocytes % 11.0 Eosinophils % 0.4 Basophils % 0.2 Nucleated Red Blood 1 H Cells % Immature 0.190 H Granulocytes # Neutrophils # 14.8 H Lymphocytes (Manual) 0.7 L Lymphocytes # 1.4 Monocytes # 2.0 H Eosinophils # 0.1 Basophils # 0.0 Nucleated Red Blood 0.0 Cells # Platelet Estimate NORMAL Giant Platelets 6 H Polychromasia 2+ Poikilocytosis 1+ Anisocytosis 2+ Macrocytosis 2+ Spherocytes 1+ Sodium Level 135 Potassium Level 5.0 Chloride Level 103 Carbon Dioxide Level 24 Anion Gap 8 Blood Urea Nitrogen 48 H Creatinine 1.50 H Est Glomerular Filtrat Rate mL/min Glucose Level 102 Calcium Level 8.2 L Phosphorus Level 3.1 Magnesium Level 1.7 CA 19-9 Antigen 9.6 Test 01/17/19 11:59 Bedside Glucose 214 Medications Current Medications Docusate Sodium (Colace) 100 mg BID PO Last administered on 01/17/19 09:01; Admin Dose 100 MG; Start 01/10/19 at 21:00 Senna (Senokot) 1 tab HS PO Last administered on 01/16/19 21:19; Admin Dose 1 TAB; Start 01/10/19 at 21:00 Lactulose (Enulose) 20 gm DAILY PRN PO CONSTIPATION Last administered on 01/12/19 15:37; Admin Dose 20 GM; Start 01/10/19 at 19:00 Acetaminophen (Tylenol Tab) 650 mg Q4H PRN PO PAIN Last administered on 01/14/19 21:47; Admin Dose 650 MG; Start 01/10/19 at 19:00 Miscellaneous Information (Pending [facility] Order For Wound Care) This patient ramirez... PRN PRN XX WOUND CARE; Start 01/10/19 at 19:00 Diagnostic Test (Pha) (Accu-Chek) 1 ea AC MEALS AND BEDTIME XX Last administered on 01/16/19 21:00; Admin Dose 1 EA; Start 01/10/19 at 21:00 Diagnostic Test (Pha) (Accu-Chek) 1 ea 02 XX Last administered on 01/15/19 02:46; Admin Dose 1 EA; Start 01/11/19 at 02:00 Albuterol/ Ipratropium (Duoneb) 3 ml Q2H RESP THERAPY PRN HHN SHORTNESS OF BREATH Last administered on 01/11/19 09:39; Admin Dose 3 ML; Start 01/10/19 at 19:30 Atorvastatin Calcium (Lipitor) 40 mg QHS PO Last administered on 01/16/19 21:18; Admin Dose 40 MG; Start 01/10/19 at 21:00 Bisacodyl (Dulcolax) 10 mg BID PRN PO CONSTIPATION; Start 01/10/19 at 19:30 Folic Acid (Folic Acid) 1 mg DAILY PO Last administered on 01/17/19 09:03; Admin Dose 1 MG; Start 01/11/19 at 09:00 Insulin Aspart (Novolog Insulin Pen) NOVOLOG *MILD* ALGORITHM WITH MEALS BEDTIME SC Last administered on 01/17/19 12:04; Admin Dose 2 UNIT; Start 01/10/19 at 21:00 Insulin Glargine (Lantus) 10 units QHS SC Last administered on 01/10/19 21:59; Admin Dose 10 UNITS; Start 01/10/19 at 21:00; Status Hold Latanoprost (Xalatan) 1 drop HS BOTH EYES Last administered on 01/16/19 21:18; Admin Dose 1 DROP; Start 01/10/19 at 21:00 Levothyroxine Sodium (Synthroid) 125 mcg BEFORE BREAKFAST PO Last administered on 01/17/19 06:29; Admin Dose 125 MCG; Start 01/11/19 at 07:00 Metoprolol Tartrate (Lopressor) 50 mg BID PO Last administered on 01/17/19 09:05; Admin Dose 50 MG; Start 01/10/19 at 21:00 Nitroglycerin (Nitroglycerin (Sl Tab) 0.4 Mg) 0.4 tab Q5M PRN SL CHEST PAIN; Start 01/10/19 at 19:30 Nystatin/ Triamcinolone Acetonide (Mycolog Cr) 1 applic BID TOP Last administered on 01/17/19 09:06; Admin Dose 1 APPLIC; Start 01/10/19 at 21:00 Nystatin (Nystatin Powder) 1 applic BID TOP Last administered on 01/17/19 09:07; Admin Dose 1 APPLIC; Start 01/10/19 at 21:00 Pantoprazole (Protonix Tab) 40 mg DAILY@06 PO Last administered on 01/17/19 06:30; Admin Dose 40 MG; Start 01/11/19 at 06:00 Polyethylene Glycol (Miralax) 17 gm DAILY PO Last administered on 01/17/19 09:02; Admin Dose 17 GM; Start 01/11/19 at 09:00 Pregabalin (Lyrica) 25 mg TID PO Last administered on 01/17/19 09:02; Admin Dose 25 MG; Start 01/10/19 at 21:00 IV Flush (NS 3 ml) 3 ml PER PROTOCOL IV ; Start 01/10/19 at 19:30 Terazosin HCl (Hytrin) 10 mg HS PO Last administered on 01/16/19 21:20; Admin Dose 10 MG; Start 01/10/19 at 21:00 Miscellaneous Information 1 ea NOTE XX ; Start 01/10/19 at 19:30 Glucose (Glutose) 15 gm Q15M PRN PO DECREASED GLUCOSE; Start 01/10/19 at 19:30 Glucose (Glutose) 22.5 gm Q15M PRN PO DECREASED GLUCOSE; Start 01/10/19 at 19:30 Dextrose (D50w Syringe) 25 ml Q15M PRN IV DECREASED GLUCOSE; Start 01/10/19 at 19:30 Dextrose (D50w Syringe) 50 ml Q15M PRN IV DECREASED GLUCOSE; Start 01/10/19 at 19:30 Glucagon (Glucagen) 1 mg Q15M PRN IM DECREASED GLUCOSE; Start 01/10/19 at 19:30 Glucose (Glutose) 15 gm Q15M PRN BUCCAL DECREASED GLUCOSE; Start 01/10/19 at 19:30 Multivitamins Therapeutic (Theragran) 1 tab DAILY PO Last administered on 01/17/19 09:01; Admin Dose 1 TAB; Start 01/12/19 at 09:00 Zinc Sulfate (Zinc Sulfate) 220 mg DAILY PO Last administered on 01/17/19 09:00; Admin Dose 220 MG; Start 01/12/19 at 09:00 Ascorbic Acid (Vitamin C) 250 mg DAILY PO Last administered on 01/17/19 10:46; Admin Dose 250 MG; Start 01/12/19 at 13:00 Albuterol/ Ipratropium (Duoneb) 3 ml Q6H RESP THERAPY HHN Last administered on 01/17/19 09:28; Admin Dose 3 ML; Start 01/11/19 at 20:00 Multi-Ingredient Ointment (Aquaphor Oint 52.5 Gm) 1 applic BID TOP Last administered on 01/17/19 10:47; Admin Dose 1 APPLIC; Start 01/13/19 at 13:30 Aspirin (Aspirin) 81 mg DAILY PO Last administered on 01/17/19 09:02; Admin Dose 81 MG; Start 01/14/19 at 09:00 Ferrous Sulfate (Ferrous Sulfate (Ec)) 325 mg WITH MEALS PO Last administered on 01/17/19 12:51; Admin Dose 325 MG; Start 01/13/19 at 17:35 Bisacodyl (Dulcolax Supp) 10 mg DAILY PRN [place] CONSTIPATION Last administered on 01/14/19 14:21; Admin Dose 10 MG; Start 01/13/19 at 17:00 Acetaminophen/ Hydrocodone Bitart ([place] (5/325)) 1 tab Q4H PRN PO MODERATE PAIN LEVEL 4-6 Last administered on 01/15/19at 07:52; Admin Dose 1 TAB; Start 01/14/19 at 13:00 Acetaminophen/ Hydrocodone Bitart ([place] (5/325)) 2 tab Q4H PRN PO SEVERE PAIN LEVEL 7-10 Last administered on 01/17/19at 12:04; Admin Dose 2 TAB; Start 01/14/19 at 13:00 Caspofungin 50 mg/ Sodium Chloride 250 ml @ 250 mls/hr Q24H IVPB Last administered on 01/16/19at 14:39; Admin Dose 250 MLS/HR; Start 01/16/19 at 15:00 Furosemide (Lasix) 20 mg DAILY@0600 IV ; Start 01/18/19 at 06:00 Assessment/Plan Additional Assessment/Plan Severe rheumatoid arthritis affecting multiple joints with decreased range of motion; Critical illness myopathy. Patient with limited participation due to sepsis, anticipate transfer to acute ID- sepsis, pneumonia- WBC continues trending upward. abx per IM Congestive heart failure. Degenerative disk disease. Coronary artery disease with history of coronary artery bypass graft x2; afib Peripheral vascular disease. Chronic obstructive pulmonary disease. Acute on chronic kidney disease. Hypertension. Hyperlipidemia. Dermatologic irritation with skin excoriation, moisture related fissure in the sacral region, and diffuse epidermal desquamation. Gastritis. Urinary retention with a Wade catheter. Diabetes mellitus type 2, labile. DEEPALI MARC MD Jan 17, 2019 13:43
[2019-01-17 14:00] VITALS: BP 118/56; PULSE 70; RESP 20
[2019-01-17] MEDS: CASPOFUNGIN 50 MG in SOD CHLORIDE 0.9% 250 ML IVPB SCH (15:00)
--- NOTE | 2019-01-17 15:34 | CONS ---
Assessment/Plan Assessment/Plan Hospital Course (Demo Recall) 1430 Awake looks comfortable WBC 18.6 H&H 6.4 and 20.4 platelets 232 neutrophils 79.7 BUN 48 creatinine 1.5 Microbiology: Blood and urine cultures remain negative Antimicrobials: Cancidas Allergy: Penicillin, sulfa Physical examination: Obese well-developed chronically ill-appearing - [place] man who is awake in no distress. Head atraumatic normocephalic sclera nonicteric. Neck is supple chest rise symmetrical breath sounds diminished bases. Heart: S1-S2. Abdomen obese soft bowel sounds present extremities without cyanosis, bilateral edema Assessment: 1. Systemic inflammatory response syndrome with ongoing leukocytosis, multifactorial 2. Status post pneumonia 3. Coronary artery disease/history of CABG 4. Advanced rheumatoid arthritis 5. Chronic atrial fibrillation 6. Diabetes 7. BPH 8. Bilateral groin fungal cellulitis 9. Acute on chronic anemia===> s/p EGD/colonoscopy 01/09/19 10. Status post right epididymitis 11. Pancreatic lesion per CT, rule out neoplasm Plan: Clinically unchanged, plan for blood transfusion today, possible transfer to medical floor Consultation Date/Type/Reason Admit Date/Time Jan 10, 2019 at 17:45 Initial Consult Date Type of Consult id Requesting Provider: IVAN AKHTAR MD Date/Time of Note DATE: 01/17/19 TIME: 15:32 Exam/Review of Systems Exam Vitals Vital Signs Date Temp Pulse Resp B/P (MAP) Pulse Ox O2 O2 Flow FiO2 Time Delivery Rate 01/17/19 71 20 99 Nasal 1.0 15:06 Cannula 01/17/19 97.3 118/56 14:00 (76) Intake and Output 01/16/19 01/16/19 01/17/19 1515:00 23:00 07:00 IntakeIntake Total 550 ml 1450 ml OutputOutput Total 500 ml 600 ml 300 ml BalanceBalance 50 ml 850 ml -300 ml Results Result Diagram: 01/17/1970101/17/19701 Results 24hrs Laboratory Tests Test 01/16/19 17:45 01/16/19 21:17 01/17/19 07:02 01/17/19 08:40 Bedside Glucose 162 170 119 White Blood Count 18.6 H Red Blood Count 2.19 L Hemoglobin 6.4 *L Hematocrit 20.4 L Mean Corpuscular 93.2 Volume Mean Corpuscular 29.2 Hemoglobin Mean Corpuscular 31.4 L Hemoglobin Concent Red Cell 18.0 H Distribution Width Platelet Count 232 Mean Platelet Volume 10.6 H Immature 1.000 H Granulocytes % Neutrophils % 79.7 H Segmented 96 H Neutrophils % (Manual) Lymphocytes % 7.7 L Lymphocytes % 4 L (Manual) Monocytes % 11.0 Eosinophils % 0.4 Basophils % 0.2 Nucleated Red Blood 1 H Cells % Immature 0.190 H Granulocytes # Neutrophils # 14.8 H Lymphocytes (Manual) 0.7 L Lymphocytes # 1.4 Monocytes # 2.0 H Eosinophils # 0.1 Basophils # 0.0 Nucleated Red Blood 0.0 Cells # Platelet Estimate NORMAL Giant Platelets 6 H Polychromasia 2+ Poikilocytosis 1+ Anisocytosis 2+ Macrocytosis 2+ Spherocytes 1+ Sodium Level 135 Potassium Level 5.0 Chloride Level 103 Carbon Dioxide Level 24 Anion Gap 8 Blood Urea Nitrogen 48 H Creatinine 1.50 H Est Glomerular Filtrat Rate mL/min Glucose Level 102 Calcium Level 8.2 L Phosphorus Level 3.1 Magnesium Level 1.7 CA 19-9 Antigen 9.6 Test 01/17/19 11:59 Bedside Glucose 214 LUCIAN HARKINS NP Jan 17, 2019 15:34
--- NOTE | 2019-01-17 15:34 | CONS ---
Assessment/Plan Assessment/Plan Hospital Course (Demo Recall) IMPRESSION: 1. Atrial fibrillation, currently rate controlled.-off systemic anticoagulation due to anemia. ON asa 2. Possible congestive heart failure by chest x-ray, which will be diastolic, acute on chronic by most recent echo with an EF of 60%. 3. Tricuspid regurgitation, moderate by most recent echo. 4. Acute on chronic renal failure. 5. Possible pneumonia. 6. History of coronary artery disease, status post coronary artery bypass graft surgery. 7. Dyslipidemia. 8. Rheumatoid arthritis. 9. Groin cellulitis. 10. Anemia-worsening again today requiring transfusions PRBC's.Now post-op s/p endoscopy ? findings 11. Diabetes mellitus. 12. Sepsis Recc: -Transferred to med-surg due to increasing WBC/worsening anemia and limited ability to participate in PT -serial ecg's -Continue BB as tolerated only -Holding anticoagulation in the setting of anemia which is again worsening r equiring transfusions. -Continue statin -Continue abx's Consultation Date/Type/Reason Admit Date/Time Jan 10, 2019 at 17:45 Initial Consult Date 01/10/19 Type of Consult Cardiology Reason for Consultation AF Requesting Provider: IVAN AKHTAR MD Date/Time of Note DATE: 01/17/19 TIME: 15:25 Exam/Review of Systems Vital Signs Vitals Vital Signs Date Temp Pulse Resp B/P (MAP) Pulse Ox O2 O2 Flow FiO2 Time Delivery Rate 01/17/19 71 20 99 Nasal 1.0 15:06 Cannula 01/17/19 97.3 118/56 14:00 (76) Intake and Output 01/16/19 01/16/19 01/17/19 1515:00 23:00 07:00 IntakeIntake Total 550 ml 1450 ml OutputOutput Total 500 ml 600 ml 300 ml BalanceBalance 50 ml 850 ml -300 ml Exam Exam Review of Systems: CONSTITUTIONAL: No fevers, chills. PULMONARY: No sob CARDIOVASCULAR: No chest pain/palpitations GASTROINTESTINAL: No nausea/vomiting. GENITOURINARY: No hematuria/dysuria. MUSCULOSKELETAL: No myagias/arthalgias. PSYCHIATRIC: The patient denies depression. NEUROLOGIC: mild generalized weakness Constitutional: alert Psych: no complaints Head: normocephalic Eyes: nl conjunctiva ENMT: mucosa pink and moist Neck: supple, jvd Respiratory: diminished breath sounds Cardiovascular: regular rate and rhythm Gastrointestinal: soft, non-tender Musculoskeletal: muscle tone (normal) Extremities: edema (bilateral) Neurological: other (No focal defcits) Labs Result Diagram: 01/17/19 0702 01/17/19 0702 Results 24hrs Laboratory Tests Test 01/16/19 17:45 01/16/19 21:17 01/17/19 07:02 01/17/19 08:40 Bedside Glucose 162 170 119 White Blood Count 18.6 H Red Blood Count 2.19 L Hemoglobin 6.4 *L Hematocrit 20.4 L Mean Corpuscular 93.2 Volume Mean Corpuscular 29.2 Hemoglobin Mean Corpuscular 31.4 L Hemoglobin Concent Red Cell 18.0 H Distribution Width Platelet Count 232 Mean Platelet Volume 10.6 H Immature 1.000 H Granulocytes % Neutrophils % 79.7 H Segmented 96 H Neutrophils % (Manual) Lymphocytes % 7.7 L Lymphocytes % 4 L (Manual) Monocytes % 11.0 Eosinophils % 0.4 Basophils % 0.2 Nucleated Red Blood 1 H Cells % Immature 0.190 H Granulocytes # Neutrophils # 14.8 H Lymphocytes (Manual) 0.7 L Lymphocytes # 1.4 Monocytes # 2.0 H Eosinophils # 0.1 Basophils # 0.0 Nucleated Red Blood 0.0 Cells # Platelet Estimate NORMAL Giant Platelets 6 H Polychromasia 2+ Poikilocytosis 1+ Anisocytosis 2+ Macrocytosis 2+ Spherocytes 1+ Sodium Level 135 Potassium Level 5.0 Chloride Level 103 Carbon Dioxide Level 24 Anion Gap 8 Blood Urea Nitrogen 48 H Creatinine 1.50 H Est Glomerular Filtrat Rate mL/min Glucose Level 102 Calcium Level 8.2 L Phosphorus Level 3.1 Magnesium Level 1.7 CA 19-9 Antigen 9.6 Test 01/17/19 11:59 Bedside Glucose 214 MARJORIE JAIN Jan 17, 2019 15:34
[2019-01-17] MEDS ORDERED: LEVOFLOXACIN 250MG/D5W (PMX) 50 ML IVPB SCH (16:00)
--- NOTE | 2019-01-17 17:00 | DS ---
Date/Time of Note Date/Time of Note DATE: 01/17/19 TIME: 17:00 Discharge Summary Admission/Discharge Info Admit Date/Time Jan 10, 2019 at 17:45 Discharge Date/Time Jan 17, 2019 at 15:18 Patient Condition: Guarded Consults Dr Tabares, cardiology, Rehabilitation dr Kraft, ID dr Fournier. Hospital Course This is a 88-year-old male with a past medical history of recent pneumonia, rheumatoid arthritis, COPD, former smoker, degenerative disk disease, history of CABG x2 in the past, DM type II was in [facility] due to sepsis, pneumonia. He recently was hospital in November 2018, was transferred today to ARU for ilya abilitation. Pt was not been able to be out of bed much for the past 2 days, his physic activity declined severely since November,. Pt. kidney function also decreased, his creatinine was low around 3. The patient denied any abdominal pain, nausea, vomiting or diarrhea. The course of a/b is not finished. PAST MEDICAL HISTORY: 1. History of CABG. 2. Rheumatoid arthritis. 3. History of AFib. 4. History of coronary artery disease. 5. Hypertension. 6. History of peripheral vascular disease. 1. Recent sepsis, SOB, weakness. Pt had recent bilateral pneumonia. 2. COPD, on oxygen at home 3. Acute on chronic renal failure likely secondary to sepsis 4. Hypertension. 5. Hyperlipidemia. 6. Hypothyroidism. 7. Normocytic normochromic chronic anemia with recent hemoglobin drop in HG to 7.0, to day 6.9. S/p blood transfusion 8. Bilateral groin cellulitis more likely associated with mateus, patches in groin and axilla bilaterally. Back rash 9. History of rheumatoid arthritis with joint deformities. 10. Diabetes type 2. 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 Peripheral vascular disease. 13. Chronic a.fib 14. right arm edema During hospitalization pt was not been rehabilitated fully due worsening of his medical condition. Pt leucocytosis increased with Blood and urine cultures remain negative and pt started on caspofungin per ID MD, dr Fournier. His anemia even without anticoagulants worsen, He required few times blood transfusion, CT of the abdomen and pelvis showed questionable pancreatic neoplasm. While pt is still admitted we will ask GI for further intervention. The study was limited due to no contrast, we cannot not get contrast studies due to CKD. We cw on low dose Lasix and monitor kidney function, creatinine is improved to 1.5. DVT proph. unable to tolerate Eliquiz, he had SCD, was restarted on aspirin but developed severe anemia. We Monitored hemoglobin and 2 units of PRBC will be given pt today. We kept pt on Famotidine BID. We controlled his pain. We used nyst cream BID in axilla. Pt was on supp. oxygen. Pt was [facility] due to worsenong anemia, need blood transfusion and continuation of treatment. Home Meds Active Scripts Apixaban* (Eliquis*) 5 Mg Tablet, 2.5 MG PO BID for 30 Days, TAB Prov:IVAN AKHTAR MD 12/20/18 Metoprolol Tartrate* (Lopressor*) 50 Mg Tab, 50 MG PO BID for 30 Days, TAB Prov:COOPER CARO 12/20/18 Reported Medications Furosemide* (Lasix*) 20 Mg Tablet, 20 MG PO BID, TAB 01/05/19 Polyethylene Glycol* (Miralax*) 17 Gm Powd.pack, 17 GM PO DAILY, #30 PACKET 12/15/18 Nifedipine* (Nifedipine ER*) 60 Mg Tablet.sa, 60 MG PO DAILY, TAB.SA 12/15/18 Bisacodyl* (Bisacodyl*) 5 Mg Tablet.dr, 10 MG PO BID PRN for CONSTIPATION, TAB 12/15/18 Pregabalin* (Lyrica*) 25 Mg Capsule, 25 MG PO TID, CAP 12/15/18 Bimatoprost* (Lumigan*) 0.01%-5 Ml Opht Drops, 1 DROP BOTH EYES HS, EA 03/02/18 Cetirizine Hcl* (Cetirizine Hcl*) 10 Mg Tablet, 10 MG PO DAILY, #30 TAB 03/02/18 Insulin Glargine* (Lantus*) 100 Unit/Ml Soln, 10 UNIT SC QHS, #1 VIAL 03/02/18 Ergocalciferol (Vitamin D2) (VITAMIN D2) 2,000 Unit Tablet, 2000 UNIT PO DAILY, TAB 03/02/18 Famotidine* (Famotidine*) 20 Mg Tablet, 20 MG PO DAILY, #30 TAB 03/02/18 Ferrous Sulfate* (Ferrous Sulfate*) 325 Mg Tabec, 325 MG PO BID, TAB 03/02/18 Nitroglycerin* (Nitrostat*) 0.4 Mg Tab.subl, 0.4 MG SL Q5MIN PRN for CHEST PAIN, BOTTLE 03/02/18 Terazosin Hcl* (Terazosin Hcl*) 10 Mg Capsule, 10 MG PO HS, CAP 03/02/18 Levothyroxine Sodium* (Levoxyl*) 125 Mcg Tablet, 125 MCG PO BEFORE BREAKFAST, #30 TAB 03/02/18 Allopurinol* (Allopurinol*) 100 Mg Tablet, 100 MG PO BID, TAB 03/02/18 Atorvastatin* (Atorvastatin*) 40 Mg Tablet, 40 MG PO QHS, #30 TAB 03/02/18 Folic Acid* (Folic Acid*) 1 Mg Tablet, 1 MG PO DAILY, TAB 03/02/18 Primary Care Provider Adin Alatorre MD Pending Labs Laboratory Tests Test 01/16/19 17:45 01/16/19 21:17 01/17/19 07:02 01/17/19 08:40 Bedside 162 170 119 Glucose mg/dL (70-220) mg/dL (70-220) mg/dL (70-220) White Blood 18.6 Count 10^3/ul (4.8-1 0.8) Red Blood 2.19 Count 10^6/ul (4.70- 6.10) Hemoglobin 6.4 g/dl (14.0-18. 0) Hematocrit 20.4 % (42.0-52.0) Mean 93.2 Corpuscular fl (82.0-101.0 Volume ) Mean 29.2 Corpuscular pg (29.0-33.0) Hemoglobin Mean 31.4 Corpuscular g/dl (32.0-37. Hemoglobin Conc 0) ent Red Cell 18.0 Distribution % (11.5-14.5) Width Platelet Count 232 10^3/UL (140-4 15) Mean Platelet 10.6 Volume fl (7.4-10.4) Immature 1.000 Granulocytes % % (0.001-0.429 ) Neutrophils % 79.7 % (39.0-77.0) Segmented 96 % (39-77) Neutrophils % (Manual) Lymphocytes % 7.7 % (15.0-51.0) Lymphocytes % 4 % (15-51) (Manual) Monocytes % 11.0 % (0.0-11.0) Eosinophils % 0.4 % (0.0-7.0) Basophils % 0.2 % (0.0-2.0) Nucleated Red 1 % (0-0) Blood Cells % Immature 0.190 Granulocytes # 10^3/ul (0.0-0 .031) Neutrophils # 14.8 10^3/ul (1.6-7 .5) Lymphocytes 0.7 (Manual) 10^3/ul (0.8-2 .9) Lymphocytes # 1.4 10^3/ul (0.8-2 .9) Monocytes # 2.0 10^3/ul (0.3-0 .9) Eosinophils # 0.1 10^3/ul (0.0-0 .5) Basophils # 0.0 10^3/ul (0.0-0 .1) Nucleated Red 0.0 Blood Cells # 10^3/ul (0.0-0 .0) Platelet NORMAL Estimate Giant Platelets 6 % (0-0) Polychromasia 2+ (0-0) Poikilocytosis 1+ (0-0) Anisocytosis 2+ (0-0) Macrocytosis 2+ (0-0) Spherocytes 1+ (0-0) Sodium Level 135 mmol/L (135-14 4) Potassium 5.0 Level mmol/L (3.5-5. 1) Chloride Level 103 mmol/L (97-110 ) Carbon Dioxide 24 Level mmol/L (21-31) Anion Gap 8 (5-13) Blood Urea 48 Nitrogen mg/dl (7-20) Creatinine 1.50 mg/dl (0.61-1. 24) Est Glomerular mL/min (>60) Filtrat Rate mL/min Glucose Level 102 mg/dl (70-220) Calcium Level 8.2 mg/dl (8.4-10. 2) Phosphorus 3.1 Level mg/dl (2.5-4.9 ) Magnesium 1.7 Level mg/dl (1.7-2.5 ) CA 19-9 9.6 Antigen U/ml (0.0-37.0 ) Test 01/17/19 11:59 Bedside 214 Glucose mg/dL (70-220) COOPER CARO Jan 17, 2019 17:00
[2019-01-18] MEDS ORDERED: FUROSEMIDE 20 MG INJ IV SCH (06:00)
--- NOTE | 2019-01-19 08:05 | DS ---
Date/Time of Note Date/Time of Note DATE: 01/19/19 TIME: 07:59 Discharge Summary Admission/Discharge Info Admit Date/Time Jan 10, 2019 at 17:45 Discharge Date/Time Jan 17, 2019 at 15:18 Discharge Diagnosis 1. Sepsis 2. Critical illness myopathy; Debility secondary to sepsis, pneumonia. 3. Worsening Anemia 4. Degenerative disk disease. 5. Coronary artery disease with history of coronary artery bypass graft x2; CHF 6. Peripheral vascular disease. 7. Atrial fibrillation. 8. Chronic obstructive pulmonary disease. 9. Acute on chronic kidney disease. 10. Hypertension. 11. Hyperlipidemia. 12. Cellulitis. 13. Dermatologic irritation with skin excoriation, moisture related fissure in the sacral region, and diffuse epidermal desquamation. 14. Gastritis 15. Urinary retention with a Wade catheter. 16. Severe rheumatoid arthritis affecting multiple joints with decreased range of motion. 17. Diabetes Mellitus Type 2 16. Impairments in self-care and mobility. Patient Condition: Serious Hospital Course The patient was admitted for comprehensive interdisciplinary rehabilitation and made limited functional progress. He was noted to have worsening medical status with increased leukocytosis as compared to admission, and worsening anemia despite transfusion. Patient transferred to acute hospital for further care, workup and management of sepsis and significant anemia. Home Meds Active Scripts Apixaban* (Eliquis*) 5 Mg Tablet, 2.5 MG PO BID for 30 Days, TAB Prov:IVAN AKHTAR MD 12/20/18 Metoprolol Tartrate* (Lopressor*) 50 Mg Tab, 50 MG PO BID for 30 Days, TAB Prov:COOPER CARO 12/20/18 Reported Medications Furosemide* (Lasix*) 20 Mg Tablet, 20 MG PO BID, TAB 01/05/19 Polyethylene Glycol* (Miralax*) 17 Gm Powd.pack, 17 GM PO DAILY, #30 PACKET 12/15/18 Nifedipine* (Nifedipine ER*) 60 Mg Tablet.sa, 60 MG PO DAILY, TAB.SA 12/15/18 Bisacodyl* (Bisacodyl*) 5 Mg Tablet.dr, 10 MG PO BID PRN for CONSTIPATION, TAB 12/15/18 Pregabalin* (Lyrica*) 25 Mg Capsule, 25 MG PO TID, CAP 12/15/18 Bimatoprost* (Lumigan*) 0.01%-5 Ml Opht Drops, 1 DROP BOTH EYES HS, EA 03/02/18 Cetirizine Hcl* (Cetirizine Hcl*) 10 Mg Tablet, 10 MG PO DAILY, #30 TAB 03/02/18 Insulin Glargine* (Lantus*) 100 Unit/Ml Soln, 10 UNIT SC QHS, #1 VIAL 03/02/18 Ergocalciferol (Vitamin D2) (VITAMIN D2) 2,000 Unit Tablet, 2000 UNIT PO DAILY, TAB 03/02/18 Famotidine* (Famotidine*) 20 Mg Tablet, 20 MG PO DAILY, #30 TAB 03/02/18 Ferrous Sulfate* (Ferrous Sulfate*) 325 Mg Tabec, 325 MG PO BID, TAB 03/02/18 Nitroglycerin* (Nitrostat*) 0.4 Mg Tab.subl, 0.4 MG SL Q5MIN PRN for CHEST PAIN, BOTTLE 03/02/18 Terazosin Hcl* (Terazosin Hcl*) 10 Mg Capsule, 10 MG PO HS, CAP 03/02/18 Levothyroxine Sodium* (Levoxyl*) 125 Mcg Tablet, 125 MCG PO BEFORE BREAKFAST, #30 TAB 03/02/18 Allopurinol* (Allopurinol*) 100 Mg Tablet, 100 MG PO BID, TAB 03/02/18 Atorvastatin* (Atorvastatin*) 40 Mg Tablet, 40 MG PO QHS, #30 TAB 03/02/18 Folic Acid* (Folic Acid*) 1 Mg Tablet, 1 MG PO DAILY, TAB 03/02/18 Primary Care Provider Adin Alatorre MD Pending Labs Laboratory Tests Test 01/18/19 10:01 Lab Scanned Report BLOOD TRANSFUSION DEEPALI MARC MD Jan 19, 2019 08:05
== END 2019-01-17 15:18 | disposition short-term general hospital (02) | DRG 91 ==
LOC: VRC 17:45
PROVIDERS: ADMIT Physical Medicine & Rehabilitation; ATTEND Internal Medicine
PROC: F07Z5ZZ Bed Mobility Treatment (ICD-10-PCS; principal; 2019-01-10)
PROC: F08Z2ZZ Grooming/Personal Hygiene Treatment (ICD-10-PCS; 2019-01-10)
PROC: 30233N1 Transfusion of Nonautologous Red Blood Cells into Peripheral Vein, Percutaneous Approach (ICD-10-PCS; 2019-01-11)
DX: G72.81 Critical illness myopathy (principal); A41.9 Sepsis, unspecified organism; I13.0 Hypertensive heart and chronic kidney disease with heart failure and stage 1 through stage 4 chronic kidney disease, or unspecified chronic kidney disease; N17.9 Acute kidney failure, unspecified; L03.314 Cellulitis of groin; R53.81 Other malaise; M51.35 Other intervertebral disc degeneration, thoracolumbar region; Z95.1 Presence of aortocoronary bypass graft; J44.9 Chronic obstructive pulmonary disease, unspecified; N18.9 Chronic kidney disease, unspecified; I50.9 Heart failure, unspecified; E78.5 Hyperlipidemia, unspecified; F42.4 Excoriation (skin-picking) disorder; R33.9 Retention of urine, unspecified; E11.22 Type 2 diabetes mellitus with diabetic chronic kidney disease; E11.51 Type 2 diabetes mellitus with diabetic peripheral angiopathy without gangrene; E03.9 Hypothyroidism, unspecified; Z86.19 Personal history of other infectious and parasitic diseases; R60.1 Generalized edema; Z87.01 Personal history of pneumonia (recurrent); I48.2 Chronic atrial fibrillation; N40.0 Benign prostatic hyperplasia without lower urinary tract symptoms; D64.89 Other specified anemias; K29.70 Gastritis, unspecified, without bleeding; D64.9 Anemia, unspecified; M06.9 Rheumatoid arthritis, unspecified; Z79.4 Long term (current) use of insulin
CPT/HCPCS: 36430; 71045; 71250; 74176; 80048; 80053; 81001; 82962; 83605; 83735; 84100; 84443; 85014; 85018; 85025; 86301; 86850; 86900; 86901; 86920; 87081; 87086; 94640; 94664; 97110; 97112; 97116; 97163; 97167; 97530; 97535; 97542; C1769; J1815; J1940; J1956; J2916; J3475; J7040; J7050; P9016

== ENCOUNTER 2019-01-17 15:58 | Inpatient (IN) | payer MEDICARE, BC ==
[~2019-01-17] VITALS: Ht 170.2 cm; Wt 75.2 kg
[2019-01-17 16:47] VITALS: BP 124/72; PULSE 84; RESP 20
--- NOTE | 2019-01-17 16:55 | HP ---
Date/Time of Note Date/Time of Note DATE: 01/17/19 TIME: 16:50 Assessment/Plan VTE Prophylaxis Pharmacological prophylaxis: NA/contraindicated Pharm contraindication: blood coag disorder, anticoag not tolerated Lines/Catheters Urinary Cath still in place: Yes Reason Cath still needed: urinary retention Assessment/Plan Hospital Course 1. Sepsis, WBC elevated , lactic acidosis 2. Severe anemia 3. Chronic renal failure likely secondary to sepsis 4. Hypertension. 5. Hyperlipidemia. 6. Hypothyroidism. 7. Normocytic normochromic chronic anemia with recent hemoglobin drop. 8. Bilateral groin cellulitis more likely associated with mateus, patches in groin and axilla bilaterally. Back rash 9. History of rheumatoid arthritis with joint deformities. 10. Diabetes type 2. 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 Peripheral vascular disease. 13. Chronic a.fib 14. right arm edema 15. Neoplasm per CT abdomen. 4.3 cm cystic lesion along the pancreas body, enlarged since 10/10/2012 (previously 2.4 cm). 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 Assessment/Plan -admit to [facility] -DVT proph. SCD bilaterally -GI prophylaxis Famotidine BID -pain control -c/w home meds -nystatin cream BID axilla -supp.. oxygen -anemia work up -ID consult, GI consult dr Margot taylor -oncology consul -hypoglycemic control HPI/ROS Admit Date/Time Admit Date/Time Jan 17, 2019 at 15:58 Hx of Present Illness This debilitated 88-year-old male with a past medical history of recent pneumonia, sepsis, rheumatoid arthritis, COPD, former smoker, degenerative disk disease, history of CABG x2 in the past, DM type II was in ARU for rehabilitation after sepsis, pneumonia. Severe rheumatoid arthritis affecting his multiple joints with decreased range of motion; Dr Meneses, pt rehabilitation provider noted critical illness myopathy. Patient had limited participation due recurrent sepsis and anemia. He was transferred today to [facility] floor. Pt was not been able to be out of bed much for the past 2-3 weeks, his physic activity declined severely since November,. Noted that pt has severe anemia that required blood transfusion, He is not on blood thinners. Pt. kidney function was restored to creatinine 1.5 . The course of a/b is not finished, per ID dr Fournier he is on caspofungin. PAST MEDICAL HISTORY: 1. History of CABG. 2. Rheumatoid arthritis. 3. History of AFib. 4. History of coronary artery disease. 5. Hypertension. 6. History of peripheral vascular disease. ROS tired Respiratory: shortness of breath Musculoskeletal: bone/joint pain, restricted range of motion PMH/Family/Social Past Medical History Medical History: congestive heart failure, renal disease Coded Allergies: Penicillins (Verified Allergy, Severe, shortness of breath, 01/05/19) Sulfa (Sulfonamide Antibiotics) (Verified Allergy, Severe, Shortness of breath, 01/05/19) sulfadiazine (Verified Allergy, Severe, shortness of breath, 01/05/19) Past Surgical History Past Surgical Hx: angioplasty, endoscopy, other (stent) Family History Significant Family History: no pertinent family hx Social History Alcohol Use: none Drug Use: none Exam/Review of Systems Exam Constitutional: alert Psych: nl mood/affect Head: normocephalic Neck: supple Respiratory: diminished breath sounds Cardiovascular: regular rate and rhythm Musculoskeletal: joint tenderness, muscle weakness, other (deformities) Extremities: pitting pedal edema COOPER CARO Jan 17, 2019 16:55
[2019-01-17] MEDS ORDERED: PENDING SANTYL ORDER FOR WOUND CARE XX PRN (18:17)
[2019-01-17] MEDS ORDERED: DEXTROSE 50% 50 ML SYRINGE IV PRN (18:17)
[2019-01-17] MEDS ORDERED: GLUCOSE GEL 15 GRAM TUBE BUCCAL PRN (18:17)
[2019-01-17] MEDS ORDERED: NITROGLYCERIN (SL) 0.4 MG TAB SL PRN (18:17)
[2019-01-17] MEDS ORDERED: NACL 0.9% 3 ML SYG IV SCH (18:17)
[2019-01-17] MEDS ORDERED: BISACODYL (EC) 5 MG TAB PO PRN (18:17)
[2019-01-17] MEDS ORDERED: HYDROCODONE/APAP (5/325) TAB PO PRN (18:17)
[2019-01-17] MEDS ORDERED: LACTULOSE 30ML CUP PO PRN (18:17)
[2019-01-17] MEDS ORDERED: GLUCOSE GEL 15 GRAM TUBE PO PRN ×2 (18:17)
[2019-01-17] MEDS ORDERED: GLUCAGON 1 MG INJ IM PRN (18:17)
[2019-01-17] MEDS ORDERED: BISACODYL 10 MG SUPP PR PRN (18:17)
[2019-01-17] MEDS ORDERED: LEVOFLOXACIN 250MG/D5W (PMX) 50 ML IVPB SCH (18:17)
[2019-01-17] MEDS: HYDROCODONE/APAP (5/325) TAB PO PRN (18:38)
[2019-01-17] MEDS ORDERED: INSULIN ASPART [NOVOLOG] 3 ML PEN SC ONE (19:00)
[2019-01-17 20:00] VITALS: BP 121/67; PULSE 84; RESP 18
[2019-01-17] MEDS: ALBUTEROL/IPRATROPIUM (NEB) 3 ML AMP HHN SCH (20:00)
[2019-01-17] MEDS: INSULIN ASPART [NOVOLOG] 3 ML PEN SC SCH (21:00)
[2019-01-17] MEDS: ACCU-CHEK XX SCH (21:00)
[2019-01-17] MEDS: PREGABALIN 25 MG CAP PO SCH (22:02)
[2019-01-17] MEDS: METOPROLOL 50 MG TAB PO SCH (22:03)
[2019-01-17] MEDS: SENNA TAB PO SCH (22:03)
[2019-01-17] MEDS: ATORVASTATIN 40 MG TAB PO SCH (22:03)
[2019-01-17] MEDS: CASPOFUNGIN 50 MG in SOD CHLORIDE 0.9% 250 ML IVPB SCH (22:06)
[2019-01-17] MEDS: DOCUSATE SODIUM 100 MG CAP PO SCH (22:08)
[2019-01-17] MEDS: TERAZOSIN 5 MG CAP PO SCH (22:08)
[2019-01-17] MEDS: INSULIN GLARGINE [LANTus] (100 UNITS/ML) SYG SC SCH (22:12)
[2019-01-17] MEDS: NYSTATIN 30 GM POWDER BTL TOP SCH (22:17)
[2019-01-17] MEDS: BALSAM PERU/CASTOR OIL 60 GM TUBE TOP SCH (22:17)
[2019-01-17] MEDS: AQUAPHOR 52.5 GM OINT TOP SCH (22:20)
[2019-01-17] MEDS: NYSTATIN/TRIAMCINOLONE 15 GM CR TOP SCH (22:20)
[2019-01-17] MEDS: ZYVOX 600 MG TAB PO SCH (22:49)
[2019-01-17] MEDS: LATANOPROST 0.005% 2.5 ML OPH BOTH EYES SCH (22:49)
[2019-01-18] MEDS: ERTAPENEM SODIUM 1 GM in SOD CHLORIDE 0.9% 100 ML IVPB SCH ×2 (00:10→23:12)
[2019-01-18 02:00] VITALS: BP 126/65; PULSE 80; RESP 18
[2019-01-18] MEDS: ALBUTEROL/IPRATROPIUM (NEB) 3 ML AMP HHN SCH ×4 (02:00→19:25)
[2019-01-18] MEDS: ACCU-CHEK XX SCH ×5 (02:00→21:19)
[2019-01-18] MEDS ORDERED: FUROSEMIDE 20 MG INJ IV SCH (06:00)
[2019-01-18] MEDS: LEVOTHYROXINE 125 MCG TAB PO SCH (06:17)
[2019-01-18] MEDS: PANTOPRAZOLE (EC) 40 MG TAB PO SCH (06:17)
[2019-01-18] MEDS: HYDROCODONE/APAP (5/325) TAB PO PRN (06:19)
[2019-01-18] MEDS: INSULIN ASPART [NOVOLOG] 3 ML PEN SC SCH ×4 (07:50→21:00)
[2019-01-18 08:09] VITALS: BP 125/58; PULSE 79; RESP 18
[2019-01-18] MEDS: POLYETHYLENE GLYCOL 17 GM PACKET PO SCH (09:00)
[2019-01-18] MEDS: DOCUSATE SODIUM 100 MG CAP PO SCH ×2 (09:00→21:13)
[2019-01-18] MEDS: BALSAM PERU/CASTOR OIL 60 GM TUBE TOP SCH ×2 (09:45→21:13)
[2019-01-18] MEDS: NYSTATIN/TRIAMCINOLONE 15 GM CR TOP SCH ×2 (09:45→21:15)
[2019-01-18] MEDS: AQUAPHOR 52.5 GM OINT TOP SCH ×2 (09:45→21:16)
[2019-01-18] MEDS: NYSTATIN 30 GM POWDER BTL TOP SCH ×2 (09:45→21:14)
[2019-01-18] MEDS: ASPIRIN 81 MG TAB PO SCH (09:46)
[2019-01-18] MEDS: FOLIC ACID 1 MG TAB PO SCH (09:47)
[2019-01-18] MEDS: METOPROLOL 50 MG TAB PO SCH ×2 (09:47→21:09)
[2019-01-18] MEDS: ZINC SULFATE 220 MG CAP PO SCH (09:47)
[2019-01-18] MEDS: ZYVOX 600 MG TAB PO SCH ×2 (09:47→21:10)
[2019-01-18] MEDS: ASCORBIC ACID 250 MG TAB PO SCH (09:47)
[2019-01-18] MEDS: FERROUS SULFATE (EC) 325 MG TAB PO SCH ×3 (09:47→18:17)
[2019-01-18] MEDS: MULTIVITAMINS THERAPEUTIC TAB PO SCH (09:48)
[2019-01-18] MEDS: PREGABALIN 25 MG CAP PO SCH ×3 (09:51→21:13)
--- NOTE | 2019-01-18 11:06 | CONS ---
Assessment/Plan Assessment/Plan Hospital Course (Demo Recall) ID PROGRESS NOTE =>Please refer to Dr. Fournier's FULL CONSULT NOTE dictation 01/05/19 CURRENT ABX: DAY # => Ertapenem + Cancidas 01/18/1945 01/18/19943 24 H INTERVAL SUMMARY * No fevers, VSS, transferred to [facility] Med-Surg from [facility] -- he tells me he was transferred because he needed an IV placed * He is pleasant, polite, awake, responsive, denies acute distress -- Chart reviewed HPI/HOSPITAL COURSE * 88 yo M w/multiple-cardiopulmonary co-morbid conditions -- readmitted with sepsis likely due to pulmonary infection. * Patient s/p recent admission for PNA with radiological improvement -- now returns with probable persistent pulm infection + SIGNIFICANT YEAST DERMATOMYCOSIS GROIN -- Primary has narrowed ABX spectrum for concern YEAST infection and MICHELLE which is an effective strategy. * WBC down with empiric ABX coverage. * ROS: Limited by patient's critical illness DIAGNOSTIC IMAGING * 01/07/19 CXR:Cardiomegaly with interval mild increase in diffuse interstitial/air space opacities, representing edema and/or pneumonia. Small bilateral pleural effusions. * * 12/16/18 2D ECHO Conclusions: * Normal left ventricular systolic function. Normal left ventricular cavity size. Moderate concentric left ventricular hypertrophy. Ejection fraction is visually estimated at 60 %. Tissue Doppler/Mitral Doppler indices are consistent with restrictive physiology with markedly elevated left atrial pressure (Stage III-IV diastolic dysfunction). * Mild right ventricular systolic dysfunction. Mild enlargement of right ventricle. * There is moderate enlargement of right atrium. * Normal appearance and function of the mitral valve with trace physiologic regurgitation. Mitral valve leaflets appear mildly thickened. Mild mitral annular calcification. Mild to moderate mitral valve regurgitation. * Normal appearance of the aortic valve. No significant aortic stenosis or insufficiency. No hemodynamically significant aortic stenosis by doppler. Aortic cusps appear mildly calcified. Mild aortic valve regurgitation. * Normal appearance of the tricuspid valve. Estimated peak PA systolic pressure 74 mmHg. There is moderate tricuspid regurgitation. MICRO/OTHER * 01/05/19 BCx (-) * Skin Cx (+)Mateus Albicans * PHYSICAL EXAMINATION: GENERAL: VSS, frail elderly male lethargic -- HEENT: AT, NC, anicteric NECK: Supple, CHEST: Equal chest rise bilaterally - diminishes bilateral HEART: Pulse RRR ABDOMEN: Soft / NT EXTREMITIES: Warm, dry SKIN: No rash, no diaphoresis == BILATERAL AXILLARY, GROIN, SANDY YEAST INFECTION ID ASSESSMENT 88 yo M w/multiple chronic co-morbid conditions re-admit with: 1. s/p Sepsis, due to persisting vs recurrent pneumonia. * Admit w/acute hypoxic SOB * Admit with fevers, leukocytosis, generalized weakness, lactate are increased to 3.0 and 2.4 * Chest Xray showed patchy bilateral perihilar increased interstitial changes, may represent an infectious/inflammatory process versus mild pulmonary vascular congestion. 2. 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 4. 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 Advanced rheumatoid arthritis with possibility of rheumatoid lung as well. * Patient was on Remicade and stopped using it about a year ago. 6. Hypertension w/HTN heart disease 7. Hyperlipidemia. 8. Hypothyroidism. 9. Normocytic normochromic chronic anemia 10. Bilateral groin cellulitis more likely associated with mateus, patches in groin and axilla bilaterally-> recent ABX for PNA 11. Acute on chronic renal failure likely secondary to sepsis, on discharge in November creatinine 1.54, now 1.93 12. Diabetes type 2. 13. CV disease, CAD, PAD, Hx of CABGx2, carotid stent 14. Peripheral vascular disease. 15. Chronic A.Fib on anticoagulants 16. Thrombocytopenia. 17. BPH on Hytrin (-)MRSA Nares ABX ALLERGIES: KNDA INVASIVES: PIV CURRENT ABX: DAY # =>Ertapenem + Cancidas ID RECOMMENDATIONS/PLAN: 1. Continues on current ABX . Consultation Date/Type/Reason Admit Date/Time Jan 17, 2019 at 15:58 Initial Consult Date Date/Time of Note DATE: 01/18/19 TIME: 10:57 Exam/Review of Systems Exam Vitals Vital Signs Date Temp Pulse Resp B/P (MAP) Pulse Ox O2 O2 Flow FiO2 Time Delivery Rate 01/18/19 79 18 98 21 09:23 01/18/19 98.0 125/58 Room Air 08:09 (80) Intake and Output 01/17/19 01/17/19 01/18/19 1515:00 23:00 07:00 IntakeIntake Total 290 ml 850 ml BalanceBalance 290 ml 850 ml Results Result Diagram: 01/18/1945 01/18/19 0944 Results 24hrs Laboratory Tests Test 01/17/19 18:26 01/17/19 18:27 01/17/19 21:02 01/17/19 22:06 Bedside Glucose 141 170 168 CA 19-9 Antigen 10.2 Test 01/18/19 04:45 01/18/19 08:51 01/18/19 09:44 Urine Color YELLOW Urine Clarity SLIGHTLY CLOUDY A Urine pH 5.0 Urine Specific 1.016 [place] Urine Ketones NEGATIVE Urine Nitrite NEGATIVE Urine Bilirubin NEGATIVE Urine NEGATIVE Urobilinogen Urine Leukocyte NEGATIVE Esterase Urine Microscopic 1 RBC Urine Microscopic 2 WBC Urine Hemoglobin NEGATIVE Urine Glucose NEGATIVE Urine Total NEGATIVE Protein Bedside Glucose 77 White Blood Count 19.3 H Red Blood Count 2.56 L Hemoglobin 7.5 L Hematocrit 23.5 L Mean Corpuscular 91.8 Volume Mean Corpuscular 29.3 Hemoglobin Mean Corpuscular 31.9 L Hemoglobin Concen t Red Cell 17.3 H Distribution Width Platelet Count 228 Mean Platelet 10.4 Volume Immature 0.700 H Granulocytes % Neutrophils % 82.2 H Lymphocytes % 8.0 L Monocytes % 8.1 Eosinophils % 0.7 Basophils % 0.3 Nucleated Red 0.0 Blood Cells % Immature 0.140 H Granulocytes # Neutrophils # 15.8 H Lymphocytes # 1.5 Monocytes # 1.6 H Eosinophils # 0.1 Basophils # 0.1 Nucleated Red 0.0 Blood Cells # Sodium Level 135 Potassium Level 4.6 Chloride Level 102 Carbon Dioxide 25 Level Anion Gap 8 Blood Urea 47 H Nitrogen Creatinine 1.38 H Est Glomerular Filtrat Rate mL/min Glucose Level 59 #L Calcium Level 8.3 L Medications Medication Current Medications Docusate Sodium (Colace) 100 mg BID PO Last administered on 01/17/19at 22:08; Admin Dose 100 MG; Start 01/17/19 at 18:17 Senna (Senokot) 1 tab HS PO Last administered on 01/17/19at 22:03; Admin Dose 1 TAB; Start 01/17/19 at 18:17 Lactulose (Enulose) 20 gm DAILY PRN PO CONSTIPATION; Start 01/17/19 at 18:17 Acetaminophen (Tylenol Tab) 650 mg Q4H PRN PO PAIN; Start 01/17/19 at 18:17 Miscellaneous Information (Pending Santyl Order For Wound Care) This patient ramirez... PRN PRN XX WOUND CARE; Start 01/17/19 at 18:17 Diagnostic Test (Pha) (Accu-Chek) 1 ea AC MEALS AND BEDTIME XX Last administered on 01/18/19at 07:20; Admin Dose 1 EA; Start 01/17/19 at 18:17 Diagnostic Test (Pha) (Accu-Chek) 1 ea 02 XX ; Start 01/17/19 at 18:17 Albuterol/ Ipratropium (Duoneb) 3 ml Q2H RESP THERAPY PRN HHN SHORTNESS OF BREATH; Start 01/17/19 at 18:17 Atorvastatin Calcium (Lipitor) 40 mg QHS PO Last administered on 01/17/19at 22:03; Admin Dose 40 MG; Start 01/17/19 at 18:17 Bisacodyl (Dulcolax) 10 mg BID PRN PO CONSTIPATION; Start 01/17/19 at 18:17 Folic Acid (Folic Acid) 1 mg DAILY PO Last administered on 01/18/19 09:47; Admin Dose 1 MG; Start 01/17/19 at 18:17 Insulin Aspart (Novolog Insulin Pen) NOVOLOG *MILD* ALGORITHM WITH MEALS BEDTIME SC ; Start 01/17/19 at 18:17 Insulin Glargine (Lantus) 10 units QHS SC Last administered on 01/17/19at 22:12; Admin Dose 10 UNITS; Start 01/17/19 at 18:17 Latanoprost (Xalatan) 1 drop HS BOTH EYES Last administered on 01/17/19at 22:49; Admin Dose 1 DROP; Start 01/17/19 at 18:17 Levothyroxine Sodium (Synthroid) 125 mcg BEFORE BREAKFAST PO Last administered on 01/18/19at 06:17; Admin Dose 125 MCG; Start 01/17/19 at 18:17 Metoprolol Tartrate (Lopressor) 50 mg BID PO Last administered on 01/18/19 09:47; Admin Dose 50 MG; Start 01/17/19 at 18:17 Nitroglycerin (Nitroglycerin (Sl Tab) 0.4 Mg) 0.4 tab Q5M PRN SL CHEST PAIN; Start 01/17/19 at 18:17 Nystatin/ Triamcinolone Acetonide (Mycolog Cr) 1 applic BID TOP Last administered on 01/18/19at 09:45; Admin Dose 1 APPLIC; Start 01/17/19 at 18:17 Nystatin (Nystatin Powder) 1 applic BID TOP Last administered on 01/18/19at 09:45; Admin Dose 1 APPLIC; Start 01/17/19 at 18:17 Pantoprazole (Protonix Tab) 40 mg DAILY@06 PO Last administered on 01/18/19at 06:17; Admin Dose 40 MG; Start 01/17/19 at 18:17 Polyethylene Glycol (Miralax) 17 gm DAILY PO ; Start 01/17/19 at 18:17 Pregabalin (Lyrica) 25 mg TID PO Last administered on 01/18/19at 09:51; Admin Dose 25 MG; Start 01/17/19 at 18:17 IV Flush (NS 3 ml) 3 ml PER PROTOCOL IV ; Start 01/17/19 at 18:17 Terazosin HCl (Hytrin) 10 mg HS PO Last administered on 01/17/19at 22:08; Admin Dose 10 MG; Start 01/17/19 at 18:17 Miscellaneous Information 1 ea NOTE XX ; Start 01/17/19 at 18:17 Glucose (Glutose) 15 gm Q15M PRN PO DECREASED GLUCOSE; Start 01/17/19 at 18:17 Glucose (Glutose) 22.5 gm Q15M PRN PO DECREASED GLUCOSE; Start 01/17/19 at 18:17 Dextrose (D50w Syringe) 25 ml Q15M PRN IV DECREASED GLUCOSE; Start 01/17/19 at 18:17 Dextrose (D50w Syringe) 50 ml Q15M PRN IV DECREASED GLUCOSE; Start 01/17/19 at 18:17 Glucagon (Glucagen) 1 mg Q15M PRN IM DECREASED GLUCOSE; Start 01/17/19 at 18:17 Glucose (Glutose) 15 gm Q15M PRN BUCCAL DECREASED GLUCOSE; Start 01/17/19 at 18:17 Multivitamins Therapeutic (Theragran) 1 tab DAILY PO Last administered on 01/18/19at 09:48; Admin Dose 1 TAB; Start 01/17/19 at 18:17 Zinc Sulfate (Zinc Sulfate) 220 mg DAILY PO Last administered on 01/18/19at 09:47; Admin Dose 220 MG; Start 01/17/19 at 18:17 Ascorbic Acid (Vitamin C) 250 mg DAILY PO Last administered on 01/18/19 09:47; Admin Dose 250 MG; Start 01/17/19 at 18:17 Albuterol/ Ipratropium (Duoneb) 3 ml Q6H RESP THERAPY HHN Last administered on 01/18/19 09:24; Admin Dose 3 ML; Start 01/17/19 at 18:17 Multi-Ingredient Ointment (Aquaphor Oint 52.5 Gm) 1 applic BID TOP Last administered on 01/18/19 09:45; Admin Dose 1 APPLIC; Start 01/17/19 at 18:17 Aspirin (Aspirin) 81 mg DAILY PO Last administered on 01/18/19 09:46; Admin Dose 81 MG; Start 01/17/19 at 18:17 Ferrous Sulfate (Ferrous Sulfate (Ec)) 325 mg WITH MEALS PO Last administered on 01/18/19 09:47; Admin Dose 325 MG; Start 01/17/19 at 18:17 Bisacodyl (Dulcolax Supp) 10 mg DAILY PRN [place] CONSTIPATION; Start 01/17/19 at 18:17 Acetaminophen/ Hydrocodone Bitart ([place] (5/325)) 1 tab Q4H PRN PO MODERATE PAIN LEVEL 4-6; Start 01/17/19 at 18:17 Acetaminophen/ Hydrocodone Bitart ([place] (5/325)) 2 tab Q4H PRN PO SEVERE PAIN LEVEL 7-10 Last administered on 01/18/19 06:19; Admin Dose 2 TAB; Start 01/17/19 at 18:17 Caspofungin 50 mg/ Sodium Chloride 250 ml @ 250 mls/hr Q24H IVPB Last administered on 01/17/19at 22:06; Admin Dose 250 MLS/HR; Start 01/17/19 at 18:17 Furosemide (Lasix) 20 mg DAILY@0600 IV Last administered on 01/18/19 06:17; Admin Dose 20 MG; Start 01/18/19 at 06:00 Ertapenem 1 gm/ Sodium Chloride 100 ml @ 200 mls/hr Q24H IVPB Last administere d on 01/18/19at 00:10; Admin Dose 200 MLS/HR; Start 01/17/19 at 23:30 Linezolid (Zyvox) 600 mg BID PO Last administered on 01/18/19at 09:47; Admin Dose 600 MG; Start 01/17/19 at 21:00 NEDA ENRIQUEZ NP Jan 18, 2019 11:06
--- NOTE | 2019-01-18 11:57 | CONS ---
Consult Date/Type/Reason Admit Date/Time Jan 17, 2019 at 15:58 Initial Consult Date Date/Time of Note DATE: 01/18/19 TIME: 11:53 Subjective PT TRANSFERRED TO REGULAR FLOOR WITH INFECTION - NO cp NOW - FEELS OK- I SPOKE WITH FAMILY - AWARE OF CARE. ROS: No fever, no chills, no nausea, no vomiting, no diarrhea/constipation No recent weight changes No chest pain, no PND, no orthopnea - better now No dizziness, blurred vision No thirst, no heat or cold intolerance Objective Vitals Vital Signs Date Temp Pulse Resp B/P (MAP) Pulse Ox O2 O2 Flow FiO2 Time Delivery Rate 01/18/19 79 18 98 21 09:23 01/18/19 98.0 125/58 Room Air 08:09 (80) Intake and Output 01/17/19 01/17/19 01/18/19 1515:00 23:00 07:00 IntakeIntake Total 290 ml 850 ml BalanceBalance 290 ml 850 ml Exam General: WN/WD/NAD, AOx 3 HEENT: Unicetric/atraumatic/EOMI (follows commands) NECK: JVD elevated, no thyromegaly Lymph: no lymphadenopathy HEART: regular with no S3, II/ systolic murmur at apex LUNGS: Coarse sounds ABD: soft, NT, ND, +BS : Intact Neuro: non focal SKIN: chronic changes desquamation EXT: trace edema Results/Medications Result Diagram: 01/18[birth year]1944 01/18/19 0944 Results 24 hrs Laboratory Tests Test 01/17/19 18:26 01/17/19 18:27 01/17/19 21:02 01/17/19 22:06 Bedside Glucose 141 170 168 CA 19-9 Antigen 10.2 Test 01/18/19 04:45 01/18/19 08:51 01/18/19 09:44 Urine Color YELLOW Urine Clarity SLIGHTLY CLOUDY A Urine pH 5.0 Urine Specific 1.016 [place] Urine Ketones NEGATIVE Urine Nitrite NEGATIVE Urine Bilirubin NEGATIVE Urine NEGATIVE Urobilinogen Urine Leukocyte NEGATIVE Esterase Urine Microscopic 1 RBC Urine Microscopic 2 WBC Urine Hemoglobin NEGATIVE Urine Glucose NEGATIVE Urine Total NEGATIVE Protein Bedside Glucose 77 White Blood Count 19.3 H Red Blood Count 2.56 L Hemoglobin 7.5 L Hematocrit 23.5 L Mean Corpuscular 91.8 Volume Mean Corpuscular 29.3 Hemoglobin Mean Corpuscular 31.9 L Hemoglobin Concen t Red Cell 17.3 H Distribution Width Platelet Count 228 Mean Platelet 10.4 Volume Immature 0.700 H Granulocytes % Neutrophils % 82.2 H Lymphocytes % 8.0 L Monocytes % 8.1 Eosinophils % 0.7 Basophils % 0.3 Nucleated Red 0.0 Blood Cells % Immature 0.140 H Granulocytes # Neutrophils # 15.8 H Lymphocytes # 1.5 Monocytes # 1.6 H Eosinophils # 0.1 Basophils # 0.1 Nucleated Red 0.0 Blood Cells # Sodium Level 135 Potassium Level 4.6 Chloride Level 102 Carbon Dioxide 25 Level Anion Gap 8 Blood Urea 47 H Nitrogen Creatinine 1.38 H Est Glomerular Filtrat Rate mL/min Glucose Level 59 #L Calcium Level 8.3 L Home Meds Active Scripts Apixaban* (Eliquis*) 5 Mg Tablet, 2.5 MG PO BID for 30 Days, TAB Prov:IVAN AKHTAR MD 12/20/18 Metoprolol Tartrate* (Lopressor*) 50 Mg Tab, 50 MG PO BID for 30 Days, TAB Prov:COOPER CARO 12/20/18 Reported Medications Furosemide* (Lasix*) 20 Mg Tablet, 20 MG PO BID, TAB 01/05/19 Polyethylene Glycol* (Miralax*) 17 Gm Powd.pack, 17 GM PO DAILY, #30 PACKET 12/15/18 Nifedipine* (Nifedipine ER*) 60 Mg Tablet.sa, 60 MG PO DAILY, TAB.SA 12/15/18 Bisacodyl* (Bisacodyl*) 5 Mg Tablet.dr, 10 MG PO BID PRN for CONSTIPATION, TAB 12/15/18 Pregabalin* (Lyrica*) 25 Mg Capsule, 25 MG PO TID, CAP 12/15/18 Bimatoprost* (Lumigan*) 0.01%-5 Ml Opht Drops, 1 DROP BOTH EYES HS, EA 03/02/18 Cetirizine Hcl* (Cetirizine Hcl*) 10 Mg Tablet, 10 MG PO DAILY, #30 TAB 03/02/18 Insulin Glargine* (Lantus*) 100 Unit/Ml Soln, 10 UNIT SC QHS, #1 VIAL 03/02/18 Ergocalciferol (Vitamin D2) (VITAMIN D2) 2,000 Unit Tablet, 2000 UNIT PO DAILY, TAB 03/02/18 Famotidine* (Famotidine*) 20 Mg Tablet, 20 MG PO DAILY, #30 TAB 03/02/18 Ferrous Sulfate* (Ferrous Sulfate*) 325 Mg Tabec, 325 MG PO BID, TAB 03/02/18 Nitroglycerin* (Nitrostat*) 0.4 Mg Tab.subl, 0.4 MG SL Q5MIN PRN for CHEST PAIN, BOTTLE 03/02/18 Terazosin Hcl* (Terazosin Hcl*) 10 Mg Capsule, 10 MG PO HS, CAP 03/02/18 Levothyroxine Sodium* (Levoxyl*) 125 Mcg Tablet, 125 MCG PO BEFORE BREAKFAST, #30 TAB 03/02/18 Allopurinol* (Allopurinol*) 100 Mg Tablet, 100 MG PO BID, TAB 03/02/18 Atorvastatin* (Atorvastatin*) 40 Mg Tablet, 40 MG PO QHS, #30 TAB 03/02/18 Folic Acid* (Folic Acid*) 1 Mg Tablet, 1 MG PO DAILY, TAB 03/02/18 Medications Current Medications Docusate Sodium (Colace) 100 mg BID PO Last administered on 01/17/19at 22:08; Admin Dose 100 MG; Start 01/17/19 at 18:17 Senna (Senokot) 1 tab HS PO Last administered on 01/17/19at 22:03; Admin Dose 1 TAB; Start 01/17/19 at 18:17 Lactulose (Enulose) 20 gm DAILY PRN PO CONSTIPATION; Start 01/17/19 at 18:17 Acetaminophen (Tylenol Tab) 650 mg Q4H PRN PO PAIN; Start 01/17/19 at 18:17 [facility] This patient ramirez. .. PRN PRN XX WOUND CARE; Start 01/17/19 at 18:17 Diagnostic Test (Pha) (Accu-Chek) 1 ea AC MEALS AND BEDTIME XX Last administered on 01/18/19at 07:20; Admin Dose 1 EA; Start 01/17/19 at 18:17 Diagnostic Test (Pha) (Accu-Chek) 1 ea 02 XX ; Start 01/17/19 at 18:17 Albuterol/ Ipratropium (Duoneb) 3 ml Q2H RESP THERAPY PRN HHN SHORTNESS OF BREATH; Start 01/17/19 at 18:17 Atorvastatin Calcium (Lipitor) 40 mg QHS PO Last administered on 01/17/19 22:03; Admin Dose 40 MG; Start 01/17/19 at 18:17 Bisacodyl (Dulcolax) 10 mg BID PRN PO CONSTIPATION; Start 01/17/19 at 18:17 Folic Acid (Folic Acid) 1 mg DAILY PO Last administered on 01/18/19 09:47; Admin Dose 1 MG; Start 01/17/19 at 18:17 Insulin Aspart (Novolog Insulin Pen) NOVOLOG *MILD* ALGORITHM WITH MEALS BEDTIME SC ; Start 01/17/19 at 18:17 Insulin Glargine (Lantus) 10 units QHS SC Last administered on 01/17/19 22:12; Admin Dose 10 UNITS; Start 01/17/19 at 18:17 Latanoprost (Xalatan) 1 drop HS BOTH EYES Last administered on 01/17/19 22:49; Admin Dose 1 DROP; Start 01/17/19 at 18:17 Levothyroxine Sodium (Synthroid) 125 mcg BEFORE BREAKFAST PO Last administered on 01/18/19 06:17; Admin Dose 125 MCG; Start 01/17/19 at 18:17 Metoprolol Tartrate (Lopressor) 50 mg BID PO Last administered on 01/18/19 09:47; Admin Dose 50 MG; Start 01/17/19 at 18:17 Nitroglycerin (Nitroglycerin (Sl Tab) 0.4 Mg) 0.4 tab Q5M PRN SL CHEST PAIN; Start 01/17/19 at 18:17 Nystatin/ Triamcinolone Acetonide (Mycolog Cr) 1 applic BID TOP Last ad ministered on 01/18/19 09:45; Admin Dose 1 APPLIC; Start 01/17/19 at 18:17 Nystatin (Nystatin Powder) 1 applic BID TOP Last administered on 01/18/19 09:45; Admin Dose 1 APPLIC; Start 01/17/19 at 18:17 Pantoprazole (Protonix Tab) 40 mg DAILY@06 PO Last administered on 01/18/19 06:17; Admin Dose 40 MG; Start 01/17/19 at 18:17 Polyethylene Glycol (Miralax) 17 gm DAILY PO ; Start 01/17/19 at 18:17 Pregabalin (Lyrica) 25 mg TID PO Last administered on 01/18/19 09:51; Admin Dose 25 MG; Start 01/17/19 at 18:17 IV Flush (NS 3 ml) 3 ml PER PROTOCOL IV ; Start 01/17/19 at 18:17 Terazosin HCl (Hytrin) 10 mg HS PO Last administered on 01/17/19at 22:08; Admin Dose 10 MG; Start 01/17/19 at 18:17 Miscellaneous Information 1 ea NOTE XX ; Start 01/17/19 at 18:17 Glucose (Glutose) 15 gm Q15M PRN PO DECREASED GLUCOSE; Start 01/17/19 at 18:17 Glucose (Glutose) 22.5 gm Q15M PRN PO DECREASED GLUCOSE; Start 01/17/19 at 18:17 Dextrose (D50w Syringe) 25 ml Q15M PRN IV DECREASED GLUCOSE; Start 01/17/19 at 18:17 Dextrose (D50w Syringe) 50 ml Q15M PRN IV DECREASED GLUCOSE; Start 01/17/19 at 18:17 Glucagon (Glucagen) 1 mg Q15M PRN IM DECREASED GLUCOSE; Start 01/17/19 at 18:17 Glucose (Glutose) 15 gm Q15M PRN BUCCAL DECREASED GLUCOSE; Start 01/17/19 at 18:17 Multivitamins Therapeutic (Theragran) 1 tab DAILY PO Last administered on 01/18/19 09:48; Admin Dose 1 TAB; Start 01/17/19 at 18:17 Zinc Sulfate (Zinc Sulfate) 220 mg DAILY PO Last administered on 01/18/19 09:47; Admin Dose 220 MG; Start 01/17/19 at 18:17 Ascorbic Acid (Vitamin C) 250 mg DAILY PO Last administered on 01/18/19 09:47; Admin Dose 250 MG; Start 01/17/19 at 18:17 Albuterol/ Ipratropium (Duoneb) 3 ml Q6H RESP THERAPY HHN Last administered on 01/18/19 09:24; Admin Dose 3 ML; Start 01/17/19 at 18:17 Multi-Ingredient Ointment (Aquaphor Oint 52.5 Gm) 1 applic BID TOP Last administered on 01/18/19 09:45; Admin Dose 1 APPLIC; Start 01/17/19 at 18:17 Aspirin (Aspirin) 81 mg DAILY PO Last administered on 01/18/19at 09:46; Admin Dose 81 MG; Start 01/17/19 at 18:17 Ferrous Sulfate (Ferrous Sulfate (Ec)) 325 mg WITH MEALS PO Last administered on 01/18/19 09:47; Admin Dose 325 MG; Start 01/17/19 at 18:17 Bisacodyl (Dulcolax Supp) 10 mg DAILY PRN [place] CONSTIPATION; Start 01/17/19 at 18:17 Acetaminophen/ Hydrocodone Bitart ([place] (5/325)) 1 tab Q4H PRN PO MODERATE PAIN LEVEL 4-6; Start 01/17/19 at 18:17 Acetaminophen/ Hydrocodone Bitart ([place] (5/325)) 2 tab Q4H PRN PO SEVERE PAIN LEVEL 7-10 Last administered on 01/18/19 06:19; Admin Dose 2 TAB; Start 01/17/19 at 18:17 Caspofungin 50 mg/ Sodium Chloride 250 ml @ 250 mls/hr Q24H IVPB Last administered on 01/17/19at 22:06; Admin Dose 250 MLS/HR; Start 01/17/19 at 18:17 Furosemide (Lasix) 20 mg DAILY@0600 IV Last administered on 01/18/19at 06:17; Admin Dose 20 MG; Start 01/18/19 at 06:00 Ertapenem 1 gm/ Sodium Chloride 100 ml @ 200 mls/hr Q24H IVPB Last administered on 01/18/19at 00:10; Admin Dose 200 MLS/HR; Start 01/17/19 at 23:30 Linezolid (Zyvox) 600 mg BID PO Last administered on 01/18/19 09:47; Admin Dose 600 MG; Start 01/17/19 at 21:00 Assessment/Plan Hospital Course (Demo Recall) 1. Atrial fibrillation, currently rate controlled.-off systemic anticoagulation due to anemia. On ASA only now 2. Possible congestive heart failure by chest x-ray, which will be diastolic, acute on chronic by most recent echo with an EF of 60%.Spot diuresis as needed. 3. Tricuspid regurgitation, moderate by most recent echo. 4. Acute on chronic renal failure - Cr 1.38 - avoid nephrotoxic meds. 5. Possible pneumonia - on anti-bx now. ID follows 6. History of coronary artery disease, status post coronary artery bypass graft surgery. 7. Dyslipidemia. 8. Rheumatoid arthritis 9. Groin cellulitis. 10. Anemia-worsening again today requiring transfusions PRBC's.Now post-op s/p endoscopy ? findings - H/H at 7.5 - primary followes. 11. Diabetes mellitus. 12. Sepsis LOU PATINO MD Jan 18, 2019 11:57
[2019-01-18] MEDS ORDERED: CYANOCOBALAMIN 1000 MCG INJ IM SCH (13:00)
--- NOTE | 2019-01-18 13:21 | PN ---
Date/Time of Note Date/Time of Note DATE: 01/18/19 TIME: 13:20 Assessment/Plan VTE Prophylaxis Risk score (from [facility] [place]0 risk: 4 SCD applied (from [facility] [place]): Yes Pharmacological prophylaxis: NA/contraindicated Pharm contraindication: blood coag disorder, anticoag not tolerated Lines/Catheters IV Catheter Type (from [facility] Mid Line Urinary Cath still in place: Yes Reason Cath still needed: urinary retention Assessment/Plan Hospital Course 1. Sepsis, WBC elevated , lactic acidosis 2. Severe anemia 3. Chronic renal failure likely secondary to sepsis 4. Hypertension. 5. Hyperlipidemia. 6. Hypothyroidism. 7. Normocytic normochromic chronic anemia with recent hemoglobin drop. 8. Bilateral groin cellulitis more likely associated with mateus, patches in groin and axilla bilaterally. Back rash 9. History of rheumatoid arthritis with joint deformities. 10. Diabetes type 2. 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 Peripheral vascular disease. 13. Chronic a.fib 14. right arm edema 15. Neoplasm per CT abdomen. 4.3 cm cystic lesion along the pancreas body, enlarged since 10/10/2012 (previously 2.4 cm). 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 Assessment/Plan -DVT proph. SCD bilaterally -GI prophylaxis Famotidine BID -pain control c/w Ertapenem and Zyvox -creatinine decreased -supp.. oxygen -anemia work up -ID consult, GI consult dr Frost aware -oncology consul dr Lorenzo aware -hypoglycemic control Result Diagram: 01/18/19 0944 01/18/19 0944 Results 24hrs Laboratory Tests Test 01/17/19 18:26 01/17/19 18:27 01/17/19 21:02 01/17/19 22:06 Bedside Glucose 141 170 168 CA 19-9 Antigen 10.2 Test 01/18/19 04:45 01/18/19 08:51 01/18/19 09:44 Urine Color YELLOW Urine Clarity SLIGHTLY CLOUDY A Urine pH 5.0 Urine Specific 1.016 [place] Urine Ketones NEGATIVE Urine Nitrite NEGATIVE Urine Bilirubin NEGATIVE Urine NEGATIVE Urobilinogen Urine Leukocyte NEGATIVE Esterase Urine Microscopic 1 RBC Urine Microscopic 2 WBC Urine Hemoglobin NEGATIVE Urine Glucose NEGATIVE Urine Total NEGATIVE Protein Bedside Glucose 77 White Blood Count 19.3 H Red Blood Count 2.56 L Hemoglobin 7.5 L Hematocrit 23.5 L Mean Corpuscular 91.8 Volume Mean Corpuscular 29.3 Hemoglobin Mean Corpuscular 31.9 L Hemoglobin Concen t Red Cell 17.3 H Distribution Width Platelet Count 228 Mean Platelet 10.4 Volume Immature 0.700 H Granulocytes % Neutrophils % 82.2 H Lymphocytes % 8.0 L Monocytes % 8.1 Eosinophils % 0.7 Basophils % 0.3 Nucleated Red 0.0 Blood Cells % Immature 0.140 H Granulocytes # Neutrophils # 15.8 H Lymphocytes # 1.5 Monocytes # 1.6 H Eosinophils # 0.1 Basophils # 0.1 Nucleated Red 0.0 Blood Cells # Sodium Level 135 Potassium Level 4.6 Chloride Level 102 Carbon Dioxide 25 Level Anion Gap 8 Blood Urea 47 H Nitrogen Creatinine 1.38 H Est Glomerular Filtrat Rate mL/min Glucose Level 59 #L Calcium Level 8.3 L Subjective 24 Hr Interval Summary Musculoskeletal: bone/joint pain Exam/Review of Systems Exam Vitals Vital Signs Date Temp Pulse Resp B/P (MAP) Pulse Ox O2 O2 Flow FiO2 Time Delivery Rate 01/18/19 79 18 98 21 09:23 01/18/19 98.0 125/58 Room Air 08:09 (80) Intake and Output 01/17/19 01/17/19 01/18/19 1515:00 23:00 07:00 IntakeIntake Total 290 ml 850 ml BalanceBalance 290 ml 850 ml Constitutional: alert, oriented Psych: no complaints Head: normocephalic Eyes: nl conjunctiva Neck: supple Respiratory: diminished breath sounds Cardiovascular: regular rate and rhythm Gastrointestinal: soft Musculoskeletal: joint tenderness, range of motion (decreased) Extremities: pitting pedal edema Skin: other (peeling) Results Results 24hrs Laboratory Tests Test 01/17/19 18:26 01/17/19 18:27 01/17/19 21:02 01/17/19 22:06 Bedside Glucose 141 170 168 CA 19-9 Antigen 10.2 Test 01/18/19 04:45 01/18/19 08:51 01/18/19 09:44 Urine Color YELLOW Urine Clarity SLIGHTLY CLOUDY A Urine pH 5.0 Urine Specific 1.016 [place] Urine Ketones NEGATIVE Urine Nitrite NEGATIVE Urine Bilirubin NEGATIVE Urine NEGATIVE Urobilinogen Urine Leukocyte NEGATIVE Esterase Urine Microscopic 1 RBC Urine Microscopic 2 WBC Urine Hemoglobin NEGATIVE Urine Glucose NEGATIVE Urine Total NEGATIVE Protein Bedside Glucose 77 White Blood Count 19.3 H Red Blood Count 2.56 L Hemoglobin 7.5 L Hematocrit 23.5 L Mean Corpuscular 91.8 Volume Mean Corpuscular 29.3 Hemoglobin Mean Corpuscular 31.9 L Hemoglobin Concen t Red Cell 17.3 H Distribution Width Platelet Count 228 Mean Platelet 10.4 Volume Immature 0.700 H Granulocytes % Neutrophils % 82.2 H Lymphocytes % 8.0 L Monocytes % 8.1 Eosinophils % 0.7 Basophils % 0.3 Nucleated Red 0.0 Blood Cells % Immature 0.140 H Granulocytes # Neutrophils # 15.8 H Lymphocytes # 1.5 Monocytes # 1.6 H Eosinophils # 0.1 Basophils # 0.1 Nucleated Red 0.0 Blood Cells # Sodium Level 135 Potassium Level 4.6 Chloride Level 102 Carbon Dioxide 25 Level Anion Gap 8 Blood Urea 47 H Nitrogen Creatinine 1.38 H Est Glomerular Filtrat Rate mL/min Glucose Level 59 #L Calcium Level 8.3 L Medications Medication Current Medications Docusate Sodium (Colace) 100 mg BID PO Last administered on 01/17/19at 22:08; Admin Dose 100 MG; Start 01/17/19 at 18:17 Senna (Senokot) 1 tab HS PO Last administered on 01/17/19at 22:03; Admin Dose 1 TAB; Start 01/17/19 at 18:17 Lactulose (Enulose) 20 gm DAILY PRN PO CONSTIPATION; Start 01/17/19 at 18:17 Acetaminophen (Tylenol Tab) 650 mg Q4H PRN PO PAIN; Start 01/17/19 at 18:17 Miscellaneous Information (Pending [facility] Order For Wound Care) This patient ramirez... PRN PRN XX WOUND CARE; Start 01/17/19 at 18:17 Diagnostic Test (Pha) (Accu-Chek) 1 ea AC MEALS AND BEDTIME XX Last administered on 01/18/19at 07:20; Admin Dose 1 EA; Start 01/17/19 at 18:17 Diagnostic Test (Pha) (Accu-Chek) 1 ea 02 XX ; Start 01/17/19 at 18:17 Albuterol/ Ipratropium (Duoneb) 3 ml Q2H RESP THERAPY PRN HHN SHORTNESS OF BREATH; Start 01/17/19 at 18:17 Atorvastatin Calcium (Lipitor) 40 mg QHS PO Last administered on 4/26/19at 22:03; Admin Dose 40 MG; Start 01/17/19 at 18:17 Bisacodyl (Dulcolax) 10 mg BID PRN PO CONSTIPATION; Start 01/17/19 at 18:17 Folic Acid (Folic Acid) 1 mg DAILY PO Last administered on 01/18/19 09:47; Admin Dose 1 MG; Start 01/17/19 at 18:17 Insulin Aspart (Novolog Insulin Pen) NOVOLOG *MILD* ALGORITHM WITH MEALS BEDTIME SC ; Start 01/17/19 at 18:17 Insulin Glargine (Lantus) 10 units QHS SC Last administered on 01/17/19 22:12; Admin Dose 10 UNITS; Start 01/17/19 at 18:17 Latanoprost (Xalatan) 1 drop HS BOTH EYES Last administered on 01/17/19 22:49; Admin Dose 1 DROP; Start 01/17/19 at 18:17 Levothyroxine Sodium (Synthroid) 125 mcg BEFORE BREAKFAST PO Last administered on 01/18/19 06:17; Admin Dose 125 MCG; Start 01/17/19 at 18:17 Metoprolol Tartrate (Lopressor) 50 mg BID PO Last administered on 01/18/19 09:47; Admin Dose 50 MG; Start 01/17/19 at 18:17 Nitroglycerin (Nitroglycerin (Sl Tab) 0.4 Mg) 0.4 tab Q5M PRN SL CHEST PAIN; Start 01/17/19 at 18:17 Nystatin/ Triamcinolone Acetonide (Mycolog Cr) 1 applic BID TOP Last administered on 01/18/19 09:45; Admin Dose 1 APPLIC; Start 01/17/19 at 18:17 Nystatin (Nystatin Powder) 1 applic BID TOP Last administered on 01/18/19 09:45; Admin Dose 1 APPLIC; Start 01/17/19 at 18:17 Pantoprazole (Protonix Tab) 40 mg DAILY@06 PO Last administered on 01/18/19 06:17; Admin Dose 40 MG; Start 01/17/19 at 18:17 Polyethylene Glycol (Miralax) 17 gm DAILY PO ; Start 01/17/19 at 18:17 Pregabalin (Lyrica) 25 mg TID PO Last administered on 01/18/19 09:51; Admin Dose 25 MG; Start 01/17/19 at 18:17 IV Flush (NS 3 ml) 3 ml PER PROTOCOL IV ; Start 01/17/19 at 18:17 Terazosin HCl (Hytrin) 10 mg HS PO Last administered on 01/17/19at 22:08; Admin Dose 10 MG; Start 01/17/19 at 18:17 Miscellaneous Information 1 ea NOTE XX ; Start 01/17/19 at 18:17 Glucose (Glutose) 15 gm Q15M PRN PO DECREASED GLUCOSE; Start 01/17/19 at 18:17 Glucose (Glutose) 22.5 gm Q15M PRN PO DECREASED GLUCOSE; Start 01/17/19 at 18:17 Dextrose (D50w Syringe) 25 ml Q15M PRN IV DECREASED GLUCOSE; Start 01/17/19 at 18:17 Dextrose (D50w Syringe) 50 ml Q15M PRN IV DECREASED GLUCOSE; Start 01/17/19 at 18:17 Glucagon (Glucagen) 1 mg Q15M PRN IM DECREASED GLUCOSE; Start 01/17/19 at 18:17 Glucose (Glutose) 15 gm Q15M PRN BUCCAL DECREASED GLUCOSE; Start 01/17/19 at 18:17 Multivitamins Therapeutic (Theragran) 1 tab DAILY PO Last administered on 01/18/19 09:48; Admin Dose 1 TAB; Start 01/17/19 at 18:17 Zinc Sulfate (Zinc Sulfate) 220 mg DAILY PO Last administered on 01/18/19 09:47; Admin Dose 220 MG; Start 01/17/19 at 18:17 Ascorbic Acid (Vitamin C) 250 mg DAILY PO Last administered on 01/18/19 09:47; Admin Dose 250 MG; Start 01/17/19 at 18:17 Albuterol/ Ipratropium (Duoneb) 3 ml Q6H RESP THERAPY HHN Last administered on 01/18/19 09:24; Admin Dose 3 ML; Start 01/17/19 at 18:17 Multi-Ingredient Ointment (Aquaphor Oint 52.5 Gm) 1 applic BID TOP Last administered on 01/18/19 09:45; Admin Dose 1 APPLIC; Start 01/17/19 at 18:17 Aspirin (Aspirin) 81 mg DAILY PO Last administered on 01/18/19 09:46; Admin Dose 81 MG; Start 01/17/19 at 18:17 Ferrous Sulfate (Ferrous Sulfate (Ec)) 325 mg WITH MEALS PO Last administered on 01/18/19at 09:47; Admin Dose 325 MG; Start 01/17/19 at 18:17 Bisacodyl (Dulcolax Supp) 10 mg DAILY PRN [place] CONSTIPATION; Start 01/17/19 at 18:17 Acetaminophen/ Hydrocodone Bitart ([place] (5/325)) 1 tab Q4H PRN PO MODERATE PAIN LEVEL 4-6; Start 01/17/19 at 18:17 Acetaminophen/ Hydrocodone Bitart ([place] (5/325)) 2 tab Q4H PRN PO SEVERE PAIN LEVEL 7-10 Last administered on 01/18/19at 06:19; Admin Dose 2 TAB; Start 01/17/19 at 18:17 Caspofungin 50 mg/ Sodium Chloride 250 ml @ 250 mls/hr Q24H IVPB Last administered on 01/17/19at 22:06; Admin Dose 250 MLS/HR; Start 01/17/19 at 18:17 Ertapenem 1 gm/ Sodium Chloride 100 ml @ 200 mls/hr Q24H IVPB Last administered on 01/18/19at 00:10; Admin Dose 200 MLS/HR; Start 01/17/19 at 23:30 Linezolid (Zyvox) 600 mg BID PO Last administered on 01/18/19at 09:47; Admin Dose 600 MG; Start 01/17/19 at 21:00 Cyanocobalamin (Vitamin B12 Inj) 1,000 mcg Q7D IM ; Start 01/18/19 at 13:00 Furosemide (Lasix) 20 mg BID DIURETICS IV ; Start 01/18/19 at 18:00; Stop 01/19/19 at 18:00 COOPER CARO Jan 18, 2019 13:21
[2019-01-18 15:02] VITALS: BP 118/55; PULSE 82; RESP 18
--- NOTE | 2019-01-18 15:57 | CONS ---
Assessment/Plan Assessment/Plan Hospital Course (Demo Recall) 88 [facility] and febrile 1. Severe anemia likely due to chronic disease, last work up while admitted to [facility] about a week ago was neg for GI bleeding, including EGD/colon which was done -s/p EGD and colonoscopy by Dr Frost 01/09/19 which didn't find an obvious GI etiology to explain anemia. AVM or a small lesion could be missed due to poor prep. Pt likely needs capsule endoscopy 2. Cystic lesion along pancreas body - 4.3 cm cystic lesion along the pancreas body, enlarged since 10/10/2012 (previously 2.4 cm). 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 -CEA wnl 3. Severe gastritis 4. Hemorrhoids 5. Hital hernia 6. A fib, -eliquis was stopped 01/06 during previous admission, on ASA 7. COPD 8. HTN 9. Hypothyroidism 10. Bilateral groin cellulitis 11. Rheumatoid arthritis. 12. Diabetes mellitus. 13. Peripheral vascular disease. 14. CHF 15. 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 No intra-abdominal inflammation or lymphadenopathy. 2. 4.3 cm cystic lesion along the pancreas body, enlarged since 10/10/2012 (previously 2.4 cm). 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 If clinically warranted, this could be further evaluated with contrast-enhanced MRI. 3. No obstructive uropathy or urinary stone. 4. Enlarged prostate gland. Correlation with PSA level is recommended. 5. Moderate atherosclerotic arterial calcifications. 6. Diffuse subcutaneous edema. 7. Status post posterior decompression and fusion at L5-S1. A malpositioned pedicle screw and impinges on the left L4-5 neural foramen, unchanged. 8. Grade 2 degenerative L4 anterolisthesis and grade 1 degenerative L5 anterolisthesis. Plan Anemia work up Pt will need outpatient EUS to evaluate pancreatic mass Recommend capsule endoscopy as outpatient GI prophylaxis: protonix QD Continue Iron Pain management Pt examined and plan of care discussed with Dr. Frost Consultation Date/Type/Reason Admit Date/Time Jan 17, 2019 at 15:58 Date/Time of Note DATE: 01/18/19 TIME: 15:56 Hx of Present Illness 88 yo male with h/o pneumonia, RA, DJD, s/p coronary artery bypass graft, PVD, htn, DM, A fib who was recently admitted to [facility] for bilateral groin cellulitis. He was then transferred to [facility] where for the last two days he c/o SOB and had temp of 101. Last labs from [facility] show hgb/hct of 6.4 Today HH is 7.5/23/5. B/C 47/1.38. WBC is 19.3. CT done on 01/15/19 showed a pancreatic mass which was larger than last CT done n 2012. CEA is wnl at 9.6 and today 10.6. During recent visit his FOB was negative. RN and pt state his bm yesterday did not have melena or blood. It was liquid, neg for C diff. Pt denies abd pain or N/V. He c/o pain all over due to his RA. RN spoke with Dr. Alatorre who increased pain meds. He denies being SOB currently. Past Medical History Medical History: congestive heart failure, renal disease Home Meds Active Scripts Apixaban* (Eliquis*) 5 Mg Tablet, 2.5 MG PO BID for 30 Days, TAB Prov:IVAN AKHTAR MD 12/20/18 Metoprolol Tartrate* (Lopressor*) 50 Mg Tab, 50 MG PO BID for 30 Days, TAB Prov:COOPER CARO 12/20/18 Reported Medications Furosemide* (Lasix*) 20 Mg Tablet, 20 MG PO BID, TAB 01/05/19 Polyethylene Glycol* (Miralax*) 17 Gm Powd.pack, 17 GM PO DAILY, #30 PACKET 12/15/18 Nifedipine* (Nifedipine ER*) 60 Mg Tablet.sa, 60 MG PO DAILY, TAB.SA 12/15/18 Bisacodyl* (Bisacodyl*) 5 Mg Tablet.dr, 10 MG PO BID PRN for CONSTIPATION, TAB 12/15/18 Pregabalin* (Lyrica*) 25 Mg Capsule, 25 MG PO TID, CAP 12/15/18 Bimatoprost* (Lumigan*) 0.01%-5 Ml Opht Drops, 1 DROP BOTH EYES HS, EA 03/02/18 Cetirizine Hcl* (Cetirizine Hcl*) 10 Mg Tablet, 10 MG PO DAILY, #30 TAB 03/02/18 Insulin Glargine* (Lantus*) 100 Unit/Ml Soln, 10 UNIT SC QHS, #1 VIAL 03/02/18 Ergocalciferol (Vitamin D2) (VITAMIN D2) 2,000 Unit Tablet, 2000 UNIT PO DAILY, TAB 03/02/18 Famotidine* (Famotidine*) 20 Mg Tablet, 20 MG PO DAILY, #30 TAB 03/02/18 Ferrous Sulfate* (Ferrous Sulfate*) 325 Mg Tabec, 325 MG PO BID, TAB 03/02/18 Nitroglycerin* (Nitrostat*) 0.4 Mg Tab.subl, 0.4 MG SL Q5MIN PRN for CHEST PAIN, BOTTLE 03/02/18 Terazosin Hcl* (Terazosin Hcl*) 10 Mg Capsule, 10 MG PO HS, CAP 03/02/18 Levothyroxine Sodium* (Levoxyl*) 125 Mcg Tablet, 125 MCG PO BEFORE BREAKFAST, #30 TAB 03/02/18 Allopurinol* (Allopurinol*) 100 Mg Tablet, 100 MG PO BID, TAB 03/02/18 Atorvastatin* (Atorvastatin*) 40 Mg Tablet, 40 MG PO QHS, #30 TAB 03/02/18 Folic Acid* (Folic Acid*) 1 Mg Tablet, 1 MG PO DAILY, TAB 03/02/18 Medications Current Medications Docusate Sodium (Colace) 100 mg BID PO Last administered on 01/17/19at 22:08; Admin Dose 100 MG; Start 01/17/19 at 18:17 Senna (Senokot) 1 tab HS PO Last administered on 01/17/19at 22:03; Admin Dose 1 TAB; Start 01/17/19 at 18:17 Lactulose (Enulose) 20 gm DAILY PRN PO CONSTIPATION; Start 01/17/19 at 18:17 Acetaminophen (Tylenol Tab) 650 mg Q4H PRN PO PAIN; Start 01/17/19 at 18:17 Miscellaneous Information [facility] This patient ramirez... PRN PRN XX WOUND CARE; Start 01/17/19 at 18:17 Diagnostic Test (Pha) (Accu-Chek) 1 ea AC MEALS AND BEDTIME XX Last administered on 01/18/19at 11:10; Admin Dose 1 EA; Start 01/17/19 at 18:17 Diagnostic Test (Pha) (Accu-Chek) 1 ea 02 XX ; Start 01/17/19 at 18:17 Albuterol/ Ipratropium (Duoneb) 3 ml Q2H RESP THERAPY PRN HHN SHORTNESS OF BREATH; Start 01/17/19 at 18:17 Atorvastatin Calcium (Lipitor) 40 mg QHS PO Last administered on 01/17/19at 22:03; Admin Dose 40 MG; Start 01/17/19 at 18:17 Bisacodyl (Dulcolax) 10 mg BID PRN PO CONSTIPATION; Start 01/17/19 at 18:17 Folic Acid (Folic Acid) 1 mg DAILY PO Last administered on 01/18/19 09:47; Admin Dose 1 MG; Start 01/17/19 at 18:17 Insulin Aspart (Novolog Insulin Pen) NOVOLOG *MILD* ALGORITHM WITH MEALS BEDTIME SC ; Start 01/17/19 at 18:17 Insulin Glargine (Lantus) 10 units QHS SC Last administered on 01/17/19at 22:12; Admin Dose 10 UNITS; Start 01/17/19 at 18:17 Latanoprost (Xalatan) 1 drop HS BOTH EYES Last administered on 01/17/19at 22:49; Admin Dose 1 DROP; Start 01/17/19 at 18:17 Levothyroxine Sodium (Synthroid) 125 mcg BEFORE BREAKFAST PO Last administered on 01/18/19 06:17; Admin Dose 125 MCG; Start 01/17/19 at 18:17 Metoprolol Tartrate (Lopressor) 50 mg BID PO Last administered on 01/18/19at 0 9:47; Admin Dose 50 MG; Start 01/17/19 at 18:17 Nitroglycerin (Nitroglycerin (Sl Tab) 0.4 Mg) 0.4 tab Q5M PRN SL CHEST PAIN; Start 01/17/19 at 18:17 Nystatin/ Triamcinolone Acetonide (Mycolog Cr) 1 applic BID TOP Last administered on 01/18/19at 09:45; Admin Dose 1 APPLIC; Start 01/17/19 at 18:17 Nystatin (Nystatin Powder) 1 applic BID TOP Last administered on 01/18/19at 09:45; Admin Dose 1 APPLIC; Start 01/17/19 at 18:17 Pantoprazole (Protonix Tab) 40 mg DAILY@06 PO Last administered on 01/18/19at 06:17; Admin Dose 40 MG; Start 01/17/19 at 18:17 Polyethylene Glycol (Miralax) 17 gm DAILY PO ; Start 01/17/19 at 18:17 Pregabalin (Lyrica) 25 mg TID PO Last administered on 01/18/19at 13:34; Admin Dose 25 MG; Start 01/17/19 at 18:17 IV Flush (NS 3 ml) 3 ml PER PROTOCOL IV ; Start 01/17/19 at 18:17 Terazosin HCl (Hytrin) 10 mg HS PO Last administered on 01/17/19at 22:08; Admin Dose 10 MG; Start 01/17/19 at 18:17 Miscellaneous Information 1 ea NOTE XX ; Start 01/17/19 at 18:17 Glucose (Glutose) 15 gm Q15M PRN PO DECREASED GLUCOSE; Start 01/17/19 at 18:17 Glucose (Glutose) 22.5 gm Q15M PRN PO DECREASED GLUCOSE; Start 01/17/19 at 18:17 Dextrose (D50w Syringe) 25 ml Q15M PRN IV DECREASED GLUCOSE; Start 01/17/19 at 18:17 Dextrose (D50w Syringe) 50 ml Q15M PRN IV DECREASED GLUCOSE; Start 01/17/19 at 18:17 Glucagon (Glucagen) 1 mg Q15M PRN IM DECREASED GLUCOSE; Start 01/17/19 at 18:17 Glucose (Glutose) 15 gm Q15M PRN BUCCAL DECREASED GLUCOSE; Start 01/17/19 at 18:17 Multivitamins Therapeutic (Theragran) 1 tab DAILY PO Last administered on 01/18/19at 09:48; Admin Dose 1 TAB; Start 01/17/19 at 18:17 Zinc Sulfate (Zinc Sulfate) 220 mg DAILY PO Last administered on 01/18/19at 09:47; Admin Dose 220 MG; Start 01/17/19 at 18:17 Ascorbic Acid (Vitamin C) 250 mg DAILY PO Last administered on 01/18/19at 09:47; Admin Dose 250 MG; Start 01/17/19 at 18:17 Albuterol/ Ipratropium (Duoneb) 3 ml Q6H RESP THERAPY HHN Last administered on 01/18/19at 09:24; Admin Dose 3 ML; Start 01/17/19 at 18:17 Multi-Ingredient Ointment (Aquaphor Oint 52.5 Gm) 1 applic BID TOP Last administered on 01/18/19at 09:45; Admin Dose 1 APPLIC; Start 01/17/19 at 18:17 Aspirin (Aspirin) 81 mg DAILY PO Last administered on 01/18/19at 09:46; Admin Dose 81 MG; Start 01/17/19 at 18:17 Ferrous Sulfate (Ferrous Sulfate (Ec)) 325 mg WITH MEALS PO Last administered on 01/18/19at 13:34; Admin Dose 325 MG; Start 01/17/19 at 18:17 Bisacodyl (Dulcolax Supp) 10 mg DAILY PRN MA CONSTIPATION; Start 01/17/19 at 18:17 Acetaminophen/ Hydrocodone Bitart ([place] (5/325)) 2 tab Q4H PRN PO SEVERE PAIN LEVEL 7-10 Last administered on 01/18/19at 06:19; Admin Dose 2 TAB; Start 01/17/19 at 18:17 Caspofungin 50 mg/ Sodium Chloride 250 ml @ 250 mls/hr Q24H IVPB Last administered on 01/17/19at 22:06; Admin Dose 250 MLS/HR; Start 01/17/19 at 18:17 Ertapenem 1 gm/ Sodium Chloride 100 ml @ 200 mls/hr Q24H IVPB Last administe red on 01/18/19at 00:10; Admin Dose 200 MLS/HR; Start 01/17/19 at 23:30 Linezolid (Zyvox) 600 mg BID PO Last administered on 01/18/19at 09:47; Admin Dose 600 MG; Start 01/17/19 at 21:00 Cyanocobalamin (Vitamin B12 Inj) 1,000 mcg Q7D IM Last administered on 01/18/19at 13:58; Admin Dose 1,000 MCG; Start 01/18/19 at 13:00 Furosemide (Lasix) 20 mg BID DIURETICS IV ; Start 01/18/19 at 18:00; Stop 02/02 at 17:59 Oxycodone HCl (Roxicodone) 10 mg Q4H PRN PO MODERATE PAIN LEVEL 4-6; Start 01/18/19 at 15:30 Allergies: Coded Allergies: Penicillins (Verified Allergy, Severe, shortness of breath, 01/05/19) Sulfa (Sulfonamide Antibiotics) (Verified Allergy, Severe, Shortness of breath, 01/05/19) sulfadiazine (Verified Allergy, Severe, shortness of breath, 01/05/19) Past Surgical History Past Surgical Hx: angioplasty, endoscopy, other (stent) Social History Alcohol Use: none Smoking Status: Former smoker Drug Use: none Exam/Review of Systems Exam Vitals Vital Signs Date Temp Pulse Resp B/P (MAP) Pulse Ox O2 O2 Flow FiO2 Time Delivery Rate 01/18/19 79 18 98 21 09:23 01/18/19 98.0 125/58 Room Air 08:09 (80) Intake and Output 01/17/19 01/17/19 01/18/19 1515:00 23:00 07:00 IntakeIntake Total 290 ml 850 ml BalanceBalance 290 ml 850 ml Constitutional: alert, oriented Psych: no complaints Head: normocephalic Eyes: nl sclera, PERRL, other (cataracts) ENMT: nl lips & teeth, mucosa pink and moist Respiratory: normal air movement, diminished breath sounds Cardiovascular: regular rate and rhythm Gastrointestinal: soft, non-tender, bowel sounds Musculoskeletal: joint tenderness, other Extremities: pitting pedal edema Neurological: nl mental status Skin: other (skin is peeling) Results Result Diagram: 01/18/19 0944 01/18/19 0944 Results 24hrs Laboratory Tests Test 01/17/19 18:26 01/17/19 18:27 01/17/19 21:02 01/17/19 22:06 Bedside Glucose 141 170 168 CA 19-9 Antigen 10.2 Test 01/18/19 04:45 01/18/19 08:51 01/18/19 09:44 01/18/19 13:50 Urine Color YELLOW Urine Clarity SLIGHTLY CLOUDY A Urine pH 5.0 Urine Specific 1.016 [place] Urine Ketones NEGATIVE Urine Nitrite NEGATIVE Urine Bilirubin NEGATIVE Urine NEGATIVE Urobilinogen Urine Leukocyte NEGATIVE Esterase Urine Microscopic 1 RBC Urine Microscopic 2 WBC Urine Hemoglobin NEGATIVE Urine Glucose NEGATIVE Urine Total NEGATIVE Protein Bedside Glucose 77 105 White Blood Count 19.3 H Red Blood Count 2.56 L Hemoglobin 7.5 L Hematocrit 23.5 L Mean Corpuscular 91.8 Volume Mean Corpuscular 29.3 Hemoglobin Mean Corpuscular 31.9 L Hemoglobin Concen t Red Cell 17.3 H Distribution Width Platelet Count 228 Mean Platelet 10.4 Volume Immature 0.700 H Granulocytes % Neutrophils % 82.2 H Lymphocytes % 8.0 L Monocytes % 8.1 Eosinophils % 0.7 Basophils % 0.3 Nucleated Red 0.0 Blood Cells % Immature 0.140 H Granulocytes # Neutrophils # 15.8 H Lymphocytes # 1.5 Monocytes # 1.6 H Eosinophils # 0.1 Basophils # 0.1 Nucleated Red 0.0 Blood Cells # Sodium Level 135 Potassium Level 4.6 Chloride Level 102 Carbon Dioxide 25 Level Anion Gap 8 Blood Urea 47 H Nitrogen Creatinine 1.38 H Est Glomerular Filtrat Rate mL/min Glucose Level 59 #L Calcium Level 8.3 L Medications Medication Current Medications Docusate Sodium (Colace) 100 mg BID PO Last administered on 01/17/19at 22:08; Admin Dose 100 MG; Start 01/17/19 at 18:17 Senna (Senokot) 1 tab HS PO Last administered on 01/17/19at 22:03; Admin Dose 1 TAB; Start 01/17/19 at 18:17 Lactulose (Enulose) 20 gm DAILY PRN PO CONSTIPATION; Start 01/17/19 at 18:17 Acetaminophen (Tylenol Tab) 650 mg Q4H PRN PO PAIN; Start 01/17/19 at 18:17 Miscellaneous Information (Pending [facility] Order For Wound Care) This patient ramirez... PRN PRN XX WOUND CARE; Start 01/17/19 at 18:17 Diagnostic Test (Pha) (Accu-Chek) 1 ea AC MEALS AND BEDTIME XX Last administered on 01/18/19at 11:10; Admin Dose 1 EA; Start 01/17/19 at 18:17 Diagnostic Test (Pha) (Accu-Chek) 1 ea 02 XX ; Start 01/17/19 at 18:17 Albuterol/ Ipratropium (Duoneb) 3 ml Q2H RESP THERAPY PRN HHN SHORTNESS OF BREATH; Start 01/17/19 at 18:17 Atorvastatin Calcium (Lipitor) 40 mg QHS PO Last administered on 01/17/19at 22:03; Admin Dose 40 MG; Start 01/17/19 at 18:17 Bisacodyl (Dulcolax) 10 mg BID PRN PO CONSTIPATION; Start 01/17/19 at 18:17 Folic Acid (Folic Acid) 1 mg DAILY PO Last administered on 01/18/19 09:47; Admin Dose 1 MG; Start 01/17/19 at 18:17 Insulin Aspart (Novolog Insulin Pen) NOVOLOG *MILD* ALGORITHM WITH MEALS BEDTIME SC ; Start 01/17/19 at 18:17 Insulin Glargine (Lantus) 10 units QHS SC Last administered on 01/17/19 22:12; Admin Dose 10 UNITS; Start 01/17/19 at 18:17 Latanoprost (Xalatan) 1 drop HS BOTH EYES Last administered on 01/17/19 22:49; Admin Dose 1 DROP; Start 01/17/19 at 18:17 Levothyroxine Sodium (Synthroid) 125 mcg BEFORE BREAKFAST PO Last administered on 01/18/19 06:17; Admin Dose 125 MCG; Start 01/17/19 at 18:17 Metoprolol Tartrate (Lopressor) 50 mg BID PO Last administered on 01/18/19 09:47; Admin Dose 50 MG; Start 01/17/19 at 18:17 Nitroglycerin (Nitroglycerin (Sl Tab) 0.4 Mg) 0.4 tab Q5M PRN SL CHEST PAIN; Start 01/17/19 at 18:17 Nystatin/ Triamcinolone Acetonide (Mycolog Cr) 1 applic BID TOP Last administered on 01/18/19 09:45; Admin Dose 1 APPLIC; Start 01/17/19 at 18:17 Nystatin (Nystatin Powder) 1 applic BID TOP Last administered on 01/18/19 09:45; Admin Dose 1 APPLIC; Start 01/17/19 at 18:17 Pantoprazole (Protonix Tab) 40 mg DAILY@06 PO Last administered on 01/18/19 06:17; Admin Dose 40 MG; Start 01/17/19 at 18:17 Polyethylene Glycol (Miralax) 17 gm DAILY PO ; Start 01/17/19 at 18:17 Pregabalin (Lyrica) 25 mg TID PO Last administered on 01/18/19 13:34; Admin Dose 25 MG; Start 01/17/19 at 18:17 IV Flush (NS 3 ml) 3 ml PER PROTOCOL IV ; Start 01/17/19 at 18:17 Terazosin HCl (Hytrin) 10 mg HS PO Last administered on 01/17/19 22:08; Admin Dose 10 MG; Start 01/17/19 at 18:17 Miscellaneous Information 1 ea NOTE XX ; Start 01/17/19 at 18:17 Glucose (Glutose) 15 gm Q15M PRN PO DECREASED GLUCOSE; Start 01/17/19 at 18:17 Glucose (Glutose) 22.5 gm Q15M PRN PO DECREASED GLUCOSE; Start 01/17/19 at 18:17 Dextrose (D50w Syringe) 25 ml Q15M PRN IV DECREASED GLUCOSE; Start 01/17/19 at 18:17 Dextrose (D50w Syringe) 50 ml Q15M PRN IV DECREASED GLUCOSE; Start 01/17/19 at 18:17 Glucagon (Glucagen) 1 mg Q15M PRN IM DECREASED GLUCOSE; Start 01/17/19 at 18:17 Glucose (Glutose) 15 gm Q15M PRN BUCCAL DECREASED GLUCOSE; Start 01/17/19 at 18:17 Multivitamins Therapeutic (Theragran) 1 tab DAILY PO Last administered on 01/18/19 09:48; Admin Dose 1 TAB; Start 01/17/19 at 18:17 Zinc Sulfate (Zinc Sulfate) 220 mg DAILY PO Last administered on 01/18/19 09:47; Admin Dose 220 MG; Start 01/17/19 at 18:17 Ascorbic Acid (Vitamin C) 250 mg DAILY PO Last administered on 01/18/19 09:47; Admin Dose 250 MG; Start 01/17/19 at 18:17 Albuterol/ Ipratropium (Duoneb) 3 ml Q6H RESP THERAPY HHN Last administered on 01/18/19 09:24; Admin Dose 3 ML; Start 01/17/19 at 18:17 Multi-Ingredient Ointment (Aquaphor Oint 52.5 Gm) 1 applic BID TOP Last administered on 01/18/19 09:45; Admin Dose 1 APPLIC; Start 01/17/19 at 18:17 Aspirin (Aspirin) 81 mg DAILY PO Last administered on 01/18/19 09:46; Admin Dose 81 MG; Start 01/17/19 at 18:17 Ferrous Sulfate (Ferrous Sulfate (Ec)) 325 mg WITH MEALS PO Last administered on 01/18/19 13:34; Admin Dose 325 MG; Start 01/17/19 at 18:17 Bisacodyl (Dulcolax Supp) 10 mg DAILY PRN MA CONSTIPATION; Start 01/17/19 at 18:17 Acetaminophen/ Hydrocodone Bitart ([place] (5/325)) 2 tab Q4H PRN PO SEVERE PAIN LEVEL 7-10 Last administered on 01/18/19at 06:19; Admin Dose 2 TAB; Start 01/17/19 at 18:17 Caspofungin 50 mg/ Sodium Chloride 250 ml @ 250 mls/hr Q24H IVPB Last administered on 01/17/19at 22:06; Admin Dose 250 MLS/HR; Start 01/17/19 at 18:17 Ertapenem 1 gm/ Sodium Chloride 100 ml @ 200 mls/hr Q24H IVPB Last administered on 01/18/19at 00:10; Admin Dose 200 MLS/HR; Start 01/17/19 at 23:30 Linezolid (Zyvox) 600 mg BID PO Last administered on 01/18/19at 09:47; Admin Dose 600 MG; Start 01/17/19 at 21:00 Cyanocobalamin (Vitamin B12 Inj) 1,000 mcg Q7D IM Last administered on 01/18/19at 13:58; Admin Dose 1,000 MCG; Start 01/18/19 at 13:00 Furosemide (Lasix) 20 mg BID DIURETICS IV ; Start 01/18/19 at 18:00; Stop 02/02/19 at 17:59 Oxycodone HCl (Roxicodone) 10 mg Q4H PRN PO MODERATE PAIN LEVEL 4-6; Start 01/18/19 at 15:30 GISELLA VENTURA Jan 18, 2019 15:57
--- NOTE | 2019-01-18 16:03 | CONS ---
Assessment/Plan Assessment/Plan Assessment/Plan (Daily) 88 yo male with multiple medical problems including DM, CRF, RA, PVD and chronic afib on Eliquis who presented to [facility] 01/05/19 with severe normocytic anemia and Hg ~7. 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 # Anemia-normocytic -Multifactorial at this time due to iron deficiency, vitamin b12 deficiency and also likely anemia of chronic kidney disease and inflammation. -Patient still has low iron level even though ferritin is elevated. Ferritin likely elevated due to acute phase reactant. -Instead po iron may need IV iron as patient has severe atrophic gastritis which may be causing absorption issues. -Placed order for vitamin b12 weekly as vitamin b12 was low normal and methylmalonic acid was elevated. Continue folate as well. -No evidence of hemolysis at this time. -Transfuse to keep Hgb > 7. -Consider giving procrit 20190 units weekly when iron stores are repleted. # Pancreatic cystic mass -Ca 19-9 is negative indicating unlikely malignant. -This may be a pseudocyst or a precancerous pancreatic lesion. -It has been growing in size but patient is asymptomatic. EUS with biopsy is recommended and can either be done inpatient or oupatient setting. -The patient at this time is unlikely a candidate for a whipple surgery however. Thank you to Dr. Alatorre for allowing met to participate in the care of this patient. A total of 40 minutes was spent in consultation with this patient and all his questions were answered. Consultation Date/Type/Reason Admit Date/Time Jan 17, 2019 at 15:58 Date of Consultation: Jan 18, 2019 Type of Consult hematology/oncology Reason for Consultation anemia and pancreatic cystic lesion Date/Time of Note DATE: 01/18/19 TIME: 15:54 Hx of Present Illness 88 yo male with multiple medical problems including DM, CRF, RA, PVD and chronic afib on Eliquis who presented to [facility] 01/05/19 with severe normocytic anemia and Hg ~7. PT has been transfused 1 unit of PRBCs since admission and his HG continued to drop. He denies any evidence of GI bleed. FOBT was negative. Although patients iron studies reveal non detectable levels of iron and patient cannot remember every undergoing EGD or colonoscopy. Due to this patient underwent an EGD and colonoscopy by Dr. Frost on 01/09/19 which showed severe atrophic gastritis and colonscopy was normal although the prep was not completely clear and thus small AVMs may be missed. Patient's hgb has continued to drop and patient has required transfusions. He has been on oral iron and folate. Also of note on most recent CT scan there is a pancreatic cystic mass that has grown in size in comparison to a CT done 2-3 years ago. CA 19-9 was normal. PMH: as above PSxH: as above SH: Denies tobacco, ETOH, or IVDA. FH: Denies any family history of blood disorders or cancers. Meds: see list All: see list Constitutional: no complaints, improved Eyes: no complaints ENT: no complaints Respiratory: no complaints Cardiovascular: no complaints Gastrointestinal: no complaints Genitourinary: no complaints Musculoskeletal: bone/joint pain, restricted range of motion Skin: no complaints Neurologic: no complaints Endocrine: no complaints Lymphatic: no complaints Psychological: no complaints, nl mood/affect Immunologic: no complaints Past Medical History Medical History: congestive heart failure, renal disease Home Meds Active Scripts Apixaban* (Eliquis*) 5 Mg Tablet, 2.5 MG PO BID for 30 Days, TAB Prov:IVAN AKHTAR MD 12/20/18 Metoprolol Tartrate* (Lopressor*) 50 Mg Tab, 50 MG PO BID for 30 Days, TAB Prov:COOPER CARO 12/20/18 Reported Medications Furosemide* (Lasix*) 20 Mg Tablet, 20 MG PO BID, TAB 01/05/19 Polyethylene Glycol* (Miralax*) 17 Gm Powd.pack, 17 GM PO DAILY, #30 PACKET 12/15/18 Nifedipine* (Nifedipine ER*) 60 Mg Tablet.sa, 60 MG PO DAILY, TAB.SA 12/15/18 Bisacodyl* (Bisacodyl*) 5 Mg Tablet.dr, 10 MG PO BID PRN for CONSTIPATION, TAB 12/15/18 Pregabalin* (Lyrica*) 25 Mg Capsule, 25 MG PO TID, CAP 12/15/18 Bimatoprost* (Lumigan*) 0.01%-5 Ml Opht Drops, 1 DROP BOTH EYES HS, EA 03/02/18 Cetirizine Hcl* (Cetirizine Hcl*) 10 Mg Tablet, 10 MG PO DAILY, #30 TAB 03/02/18 Insulin Glargine* (Lantus*) 100 Unit/Ml Soln, 10 UNIT SC QHS, #1 VIAL 03/02/18 Ergocalciferol (Vitamin D2) (VITAMIN D2) 2,000 Unit Tablet, 2000 UNIT PO DAILY, TAB 03/02/18 Famotidine* (Famotidine*) 20 Mg Tablet, 20 MG PO DAILY, #30 TAB 03/02/18 Ferrous Sulfate* (Ferrous Sulfate*) 325 Mg Tabec, 325 MG PO BID, TAB 03/02/18 Nitroglycerin* (Nitrostat*) 0.4 Mg Tab.subl, 0.4 MG SL Q5MIN PRN for CHEST PAIN, BOTTLE 03/02/18 Terazosin Hcl* (Terazosin Hcl*) 10 Mg Capsule, 10 MG PO HS, CAP 03/02/18 Levothyroxine Sodium* (Levoxyl*) 125 Mcg Tablet, 125 MCG PO BEFORE BREAKFAST, #30 TAB 03/02/18 Allopurinol* (Allopurinol*) 100 Mg Tablet, 100 MG PO BID, TAB 03/02/18 Atorvastatin* (Atorvastatin*) 40 Mg Tablet, 40 MG PO QHS, #30 TAB 03/02/18 Folic Acid* (Folic Acid*) 1 Mg Tablet, 1 MG PO DAILY, TAB 03/02/18 Medications Current Medications Docusate Sodium (Colace) 100 mg BID PO Last administered on 01/17/19at 22:08; Admin Dose 100 MG; Start 01/17/19 at 18:17 Senna (Senokot) 1 tab HS PO Last administered on 01/17/19at 22:03; Admin Dose 1 TAB; Start 01/17/19 at 18:17 Lactulose (Enulose) 20 gm DAILY PRN PO CONSTIPATION; Start 01/17/19 at 18:17 Acetaminophen (Tylenol Tab) 650 mg Q4H PRN PO PAIN; Start 01/17/19 at 18:17 Miscellaneous Information (Pending [facility] Order For Wound Care) This patient ramirez... PRN PRN XX WOUND CARE; Start 01/17/19 at 18:17 Diagnostic Test (Pha) (Accu-Chek) 1 ea AC MEALS AND BEDTIME XX Last administered on 01/18/19at 11:10; Admin Dose 1 EA; Start 01/17/19 at 18:17 Diagnostic Test (Pha) (Accu-Chek) 1 ea 02 XX ; Start 01/17/19 at 18:17 Albuterol/ Ipratropium (Duoneb) 3 ml Q2H RESP THERAPY PRN HHN SHORTNESS OF BREATH; Start 01/17/19 at 18:17 Atorvastatin Calcium (Lipitor) 40 mg QHS PO Last administered on 01/17/19 22:03; Admin Dose 40 MG; Start 01/17/19 at 18:17 Bisacodyl (Dulcolax) 10 mg BID PRN PO CONSTIPATION; Start 01/17/19 at 18:17 Folic Acid (Folic Acid) 1 mg DAILY PO Last administered on 01/18/19 09:47; Admin Dose 1 MG; Start 01/17/19 at 18:17 Insulin Aspart (Novolog Insulin Pen) NOVOLOG *MILD* ALGORITHM WITH MEALS BEDTIME SC ; Start 01/17/19 at 18:17 Insulin Glargine (Lantus) 10 units QHS SC Last administered on 01/17/19 22:12; Admin Dose 10 UNITS; Start 01/17/19 at 18:17 Latanoprost (Xalatan) 1 drop HS BOTH EYES Last administered on 01/17/19 22:49; Admin Dose 1 DROP; Start 01/17/19 at 18:17 Levothyroxine Sodium (Synthroid) 125 mcg BEFORE BREAKFAST PO Last administered on 01/18/19 06:17; Admin Dose 125 MCG; Start 01/17/19 at 18:17 Metoprolol Tartrate (Lopressor) 50 mg BID PO Last administered on 01/18/19 09:47; Admin Dose 50 MG; Start 01/17/19 at 18:17 Nitroglycerin (Nitroglycerin (Sl Tab) 0.4 Mg) 0.4 tab Q5M PRN SL CHEST PAIN; Start 01/17/19 at 18:17 Nystatin/ Triamcinolone Acetonide (Mycolog Cr) 1 applic BID TOP Last admin istered on 01/18/19 09:45; Admin Dose 1 APPLIC; Start 01/17/19 at 18:17 Nystatin (Nystatin Powder) 1 applic BID TOP Last administered on 01/18/19 09:45; Admin Dose 1 APPLIC; Start 01/17/19 at 18:17 Pantoprazole (Protonix Tab) 40 mg DAILY@06 PO Last administered on 01/18/19at 06:17; Admin Dose 40 MG; Start 01/17/19 at 18:17 Polyethylene Glycol (Miralax) 17 gm DAILY PO ; Start 01/17/19 at 18:17 Pregabalin (Lyrica) 25 mg TID PO Last administered on 01/18/19at 13:34; Admin Dose 25 MG; Start 01/17/19 at 18:17 IV Flush (NS 3 ml) 3 ml PER PROTOCOL IV ; Start 01/17/19 at 18:17 Terazosin HCl (Hytrin) 10 mg HS PO Last administered on 01/17/19at 22:08; Admin Dose 10 MG; Start 01/17/19 at 18:17 Miscellaneous Information 1 ea NOTE XX ; Start 01/17/19 at 18:17 Glucose (Glutose) 15 gm Q15M PRN PO DECREASED GLUCOSE; Start 01/17/19 at 18:17 Glucose (Glutose) 22.5 gm Q15M PRN PO DECREASED GLUCOSE; Start 01/17/19 at 18:17 Dextrose (D50w Syringe) 25 ml Q15M PRN IV DECREASED GLUCOSE; Start 01/17/19 at 18:17 Dextrose (D50w Syringe) 50 ml Q15M PRN IV DECREASED GLUCOSE; Start 01/17/19 at 18:17 Glucagon (Glucagen) 1 mg Q15M PRN IM DECREASED GLUCOSE; Start 01/17/19 at 18:17 Glucose (Glutose) 15 gm Q15M PRN BUCCAL DECREASED GLUCOSE; Start 01/17/19 at 18:17 Multivitamins Therapeutic (Theragran) 1 tab DAILY PO Last administered on 01/18/19at 09:48; Admin Dose 1 TAB; Start 01/17/19 at 18:17 Zinc Sulfate (Zinc Sulfate) 220 mg DAILY PO Last administered on 01/18/19at 09:47; Admin Dose 220 MG; Start 01/17/19 at 18:17 Ascorbic Acid (Vitamin C) 250 mg DAILY PO Last administered on 01/18/19at 09:47; Admin Dose 250 MG; Start 01/17/19 at 18:17 Albuterol/ Ipratropium (Duoneb) 3 ml Q6H RESP THERAPY HHN Last administered on 01/18/19at 09:24; Admin Dose 3 ML; Start 01/17/19 at 18:17 Multi-Ingredient Ointment (Aquaphor Oint 52.5 Gm) 1 applic BID TOP Last administered on 01/18/19 09:45; Admin Dose 1 APPLIC; Start 01/17/19 at 18:17 Aspirin (Aspirin) 81 mg DAILY PO Last administered on 01/18/19 09:46; Admin Dose 81 MG; Start 01/17/19 at 18:17 Ferrous Sulfate (Ferrous Sulfate (Ec)) 325 mg WITH MEALS PO Last administered on 01/18/19 13:34; Admin Dose 325 MG; Start 01/17/19 at 18:17 Bisacodyl (Dulcolax Supp) 10 mg DAILY PRN IN CONSTIPATION; Start 01/17/19 at 18:17 Acetaminophen/ Hydrocodone Bitart ([place] (5/325)) 2 tab Q4H PRN PO SEVERE PAIN LEVEL 7-10 Last administered on 01/18/19 06:19; Admin Dose 2 TAB; Start 01/17/19 at 18:17 Caspofungin 50 mg/ Sodium Chloride 250 ml @ 250 mls/hr Q24H IVPB Last administered on 01/17/19at 22:06; Admin Dose 250 MLS/HR; Start 01/17/19 at 18:17 Ertapenem 1 gm/ Sodium Chloride 100 ml @ 200 mls/hr Q24H IVPB Last administered on 01/18/19at 00:10; Admin Dose 200 MLS/HR; Start 01/17/19 at 23:30 Linezolid (Zyvox) 600 mg BID PO Last administered on 01/18/19at 09:47; Admin Dose 600 MG; Start 01/17/19 at 21:00 Cyanocobalamin (Vitamin B12 Inj) 1,000 mcg Q7D IM Last administered on 01/18/19at 13:58; Admin Dose 1,000 MCG; Start 01/18/19 at 13:00 Furosemide (Lasix) 20 mg BID DIURETICS IV ; Start 01/18/19 at 18:00; Stop 02/02/19 at 17:59 Oxycodone HCl (Roxicodone) 10 mg Q4H PRN PO MODERATE PAIN LEVEL 4-6; Start 01/18/19 at 15:30 Allergies: Coded Allergies: Penicillins (Verified Allergy, Severe, shortness of breath, 01/05/19) Sulfa (Sulfonamide Antibiotics) (Verified Allergy, Severe, Shortness of breath, 01/05/19) sulfadiazine (Verified Allergy, Severe, shortness of breath, 01/05/19) Past Surgical History Past Surgical Hx: angioplasty, endoscopy, other (stent) Social History Alcohol Use: none Smoking Status: Former smoker Drug Use: none Exam/Review of Systems Exam Vitals Vital Signs Date Temp Pulse Resp B/P (MAP) Pulse Ox O2 O2 Flow FiO2 Time Delivery Rate 01/18/19 79 18 98 21 09:23 01/18/19 98.0 125/58 Room Air 08:09 (80) Intake and Output 01/17/19 01/17/19 01/18/19 1515:00 23:00 07:00 IntakeIntake Total 290 ml 850 ml BalanceBalance 290 ml 850 ml Constitutional: alert, oriented, well developed Psych: no complaints, nl mood/affect Head: normocephalic, atraumatic Eyes: nl conjunctiva, EOMI, nl lids, nl sclera, PERRL ENMT: nl external ears & nose, nl lips & teeth, nl nasal mucosa & septum Neck: supple, non-tender Respiratory: clear to auscultation, normal air movement Cardiovascular: regular rate and rhythm, nl pulses Gastrointestinal: soft, nl liver, spleen, non-tender Musculoskeletal: muscle weakness Extremities: normal pulses Neurological: [employer] II-XII intact, nl mental status, nl speech, focal weakness Skin: nl turgor; No rash or lesions Lymph: nl lymph nodes Results Result Diagram: 01/18/1994301/18/19 0944 Results 24hrs Laboratory Tests Test 01/17/19 18:26 01/17/19 18:27 01/17/19 21:02 01/17/19 22:06 Bedside Glucose 141 170 168 CA 19-9 Antigen 10.2 Test 01/18/19 04:45 01/18/19 08:51 01/18/19 09:44 01/18/19 13:50 Urine Color YELLOW Urine Clarity SLIGHTLY CLOUDY A Urine pH 5.0 Urine Specific 1.016 [place] Urine Ketones NEGATIVE Urine Nitrite NEGATIVE Urine Bilirubin NEGATIVE Urine NEGATIVE Urobilinogen Urine Leukocyte NEGATIVE Esterase Urine Microscopic 1 RBC Urine Microscopic 2 WBC Urine Hemoglobin NEGATIVE Urine Glucose NEGATIVE Urine Total NEGATIVE Protein Bedside Glucose 77 105 White Blood Count 19.3 H Red Blood Count 2.56 L Hemoglobin 7.5 L Hematocrit 23.5 L Mean Corpuscular 91.8 Volume Mean Corpuscular 29.3 Hemoglobin Mean Corpuscular 31.9 L Hemoglobin Concen t Red Cell 17.3 H Distribution Width Platelet Count 228 Mean Platelet 10.4 Volume Immature 0.700 H Granulocytes % Neutrophils % 82.2 H Lymphocytes % 8.0 L Monocytes % 8.1 Eosinophils % 0.7 Basophils % 0.3 Nucleated Red 0.0 Blood Cells % Immature 0.140 H Granulocytes # Neutrophils # 15.8 H Lymphocytes # 1.5 Monocytes # 1.6 H Eosinophils # 0.1 Basophils # 0.1 Nucleated Red 0.0 Blood Cells # Sodium Level 135 Potassium Level 4.6 Chloride Level 102 Carbon Dioxide 25 Level Anion Gap 8 Blood Urea 47 H Nitrogen Creatinine 1.38 H Est Glomerular Filtrat Rate mL/min Glucose Level 59 #L Calcium Level 8.3 L Medications Medication Current Medications Docusate Sodium (Colace) 100 mg BID PO Last administered on 01/17/19at 22:08; Admin Dose 100 MG; Start 01/17/19 at 18:17 Senna (Senokot) 1 tab HS PO Last administered on 01/17/19at 22:03; Admin Dose 1 TAB; Start 01/17/19 at 18:17 Lactulose (Enulose) 20 gm DAILY PRN PO CONSTIPATION; Start 01/17/19 at 18:17 Acetaminophen (Tylenol Tab) 650 mg Q4H PRN PO PAIN; Start 01/17/19 at 18:17 Miscellaneous Information (Pending [facility] Order For Wound Care) This patient ramirez... PRN PRN XX WOUND CARE; Start 01/17/19 at 18:17 Diagnostic Test (Pha) (Accu-Chek) 1 ea AC MEALS AND BEDTIME XX Last administered on 01/18/19at 11:10; Admin Dose 1 EA; Start 01/17/19 at 18:17 Diagnostic Test (Pha) (Accu-Chek) 1 ea 02 XX ; Start 01/17/19 at 18:17 Albuterol/ Ipratropium (Duoneb) 3 ml Q2H RESP THERAPY PRN HHN SHORTNESS OF BREATH; Start 01/17/19 at 18:17 Atorvastatin Calcium (Lipitor) 40 mg QHS PO Last administered on 01/17/19 22:03; Admin Dose 40 MG; Start 01/17/19 at 18:17 Bisacodyl (Dulcolax) 10 mg BID PRN PO CONSTIPATION; Start 01/17/19 at 18:17 Folic Acid (Folic Acid) 1 mg DAILY PO Last administered on 01/18/19 09:47; Admin Dose 1 MG; Start 01/17/19 at 18:17 Insulin Aspart (Novolog Insulin Pen) NOVOLOG *MILD* ALGORITHM WITH MEALS BEDTIME SC ; Start 01/17/19 at 18:17 Insulin Glargine (Lantus) 10 units QHS SC Last administered on 01/17/19 22:12; Admin Dose 10 UNITS; Start 01/17/19 at 18:17 Latanoprost (Xalatan) 1 drop HS BOTH EYES Last administered on 01/17/19 22:49; Admin Dose 1 DROP; Start 01/17/19 at 18:17 Levothyroxine Sodium (Synthroid) 125 mcg BEFORE BREAKFAST PO Last administered on 01/18/19 06:17; Admin Dose 125 MCG; Start 01/17/19 at 18:17 Metoprolol Tartrate (Lopressor) 50 mg BID PO Last administered on 01/18/19 09:47; Admin Dose 50 MG; Start 01/17/19 at 18:17 Nitroglycerin (Nitroglycerin (Sl Tab) 0.4 Mg) 0.4 tab Q5M PRN SL CHEST PAIN; Start 01/17/19 at 18:17 Nystatin/ Triamcinolone Acetonide (Mycolog Cr) 1 applic BID TOP Last administered on 01/18/19 09:45; Admin Dose 1 APPLIC; Start 01/17/19 at 18:17 Nystatin (Nystatin Powder) 1 applic BID TOP Last administered on 01/18/19 09:45; Admin Dose 1 APPLIC; Start 01/17/19 at 18:17 Pantoprazole (Protonix Tab) 40 mg DAILY@06 PO Last administered on 01/18/19 06:17; Admin Dose 40 MG; Start 01/17/19 at 18:17 Polyethylene Glycol (Miralax) 17 gm DAILY PO ; Start 01/17/19 at 18:17 Pregabalin (Lyrica) 25 mg TID PO Last administered on 01/18/19at 13:34; Admin Dose 25 MG; Start 01/17/19 at 18:17 IV Flush (NS 3 ml) 3 ml PER PROTOCOL IV ; Start 01/17/19 at 18:17 Terazosin HCl (Hytrin) 10 mg HS PO Last administered on 01/17/19at 22:08; Admin Dose 10 MG; Start 01/17/19 at 18:17 Miscellaneous Information 1 ea NOTE XX ; Start 01/17/19 at 18:17 Glucose (Glutose) 15 gm Q15M PRN PO DECREASED GLUCOSE; Start 01/17/19 at 18:17 Glucose (Glutose) 22.5 gm Q15M PRN PO DECREASED GLUCOSE; Start 01/17/19 at 18:17 Dextrose (D50w Syringe) 25 ml Q15M PRN IV DECREASED GLUCOSE; Start 01/17/19 at 18:17 Dextrose (D50w Syringe) 50 ml Q15M PRN IV DECREASED GLUCOSE; Start 01/17/19 at 18:17 Glucagon (Glucagen) 1 mg Q15M PRN IM DECREASED GLUCOSE; Start 01/17/19 at 18:17 Glucose (Glutose) 15 gm Q15M PRN BUCCAL DECREASED GLUCOSE; Start 01/17/19 at 18:17 Multivitamins Therapeutic (Theragran) 1 tab DAILY PO Last administered on 01/18/19at 09:48; Admin Dose 1 TAB; Start 01/17/19 at 18:17 Zinc Sulfate (Zinc Sulfate) 220 mg DAILY PO Last administered on 01/18/19at 09:47; Admin Dose 220 MG; Start 01/17/19 at 18:17 Ascorbic Acid (Vitamin C) 250 mg DAILY PO Last administered on 01/18/19at 09:47; Admin Dose 250 MG; Start 01/17/19 at 18:17 Albuterol/ Ipratropium (Duoneb) 3 ml Q6H RESP THERAPY HHN Last administered on 01/18/19at 09:24; Admin Dose 3 ML; Start 01/17/19 at 18:17 Multi-Ingredient Ointment (Aquaphor Oint 52.5 Gm) 1 applic BID TOP Last administered on 01/18/19at 09:45; Admin Dose 1 APPLIC; Start 01/17/19 at 18:17 Aspirin (Aspirin) 81 mg DAILY PO Last administered on 01/18/19 09:46; Admin Dose 81 MG; Start 01/17/19 at 18:17 Ferrous Sulfate (Ferrous Sulfate (Ec)) 325 mg WITH MEALS PO Last administered on 01/18/19at 13:34; Admin Dose 325 MG; Start 01/17/19 at 18:17 Bisacodyl (Dulcolax Supp) 10 mg DAILY PRN IN CONSTIPATION; Start 01/17/19 at 18:17 Acetaminophen/ Hydrocodone Bitart ([place] (5/325)) 2 tab Q4H PRN PO SEVERE PAIN LEVEL 7-10 Last administered on 01/18/19 06:19; Admin Dose 2 TAB; Start 01/17/19 at 18:17 Caspofungin 50 mg/ Sodium Chloride 250 ml @ 250 mls/hr Q24H IVPB Last administered on 01/17/19at 22:06; Admin Dose 250 MLS/HR; Start 01/17/19 at 18:17 Ertapenem 1 gm/ Sodium Chloride 100 ml @ 200 mls/hr Q24H IVPB Last administered on 01/18/19at 00:10; Admin Dose 200 MLS/HR; Start 01/17/19 at 23:30 Linezolid (Zyvox) 600 mg BID PO Last administered on 01/18/19at 09:47; Admin Dose 600 MG; Start 01/17/19 at 21:00 Cyanocobalamin (Vitamin B12 Inj) 1,000 mcg Q7D IM Last administered on 01/18/19at 13:58; Admin Dose 1,000 MCG; Start 01/18/19 at 13:00 Furosemide (Lasix) 20 mg BID DIURETICS IV ; Start 01/18/19 at 18:00; Stop 02/02/19 at 17:59 Oxycodone HCl (Roxicodone) 10 mg Q4H PRN PO MODERATE PAIN LEVEL 4-6; Start 01/18/19 at 15:30 NANCY JAMES DO Jan 18, 2019 16:03
[2019-01-18] MEDS: oxyCODONE 5 MG TAB PO PRN (16:30)
[2019-01-18] MEDS: CASPOFUNGIN 50 MG in SOD CHLORIDE 0.9% 250 ML IVPB SCH (18:15)
[2019-01-18] MEDS: FUROSEMIDE 20 MG INJ IV SCH (18:16)
[2019-01-18 19:25] VITALS: BP 134/62; PULSE 93; RESP 20
[2019-01-18] MEDS ORDERED: VANCOMYCIN IV PER PHARMACY XX SCH (20:30)
[2019-01-18] MEDS: LATANOPROST 0.005% 2.5 ML OPH BOTH EYES SCH (21:09)
[2019-01-18] MEDS: TERAZOSIN 5 MG CAP PO SCH (21:10)
[2019-01-18] MEDS: ATORVASTATIN 40 MG TAB PO SCH (21:10)
[2019-01-18] MEDS: SENNA TAB PO SCH (21:10)
[2019-01-18] MEDS: INSULIN GLARGINE [LANTus] (100 UNITS/ML) SYG SC SCH (21:17)
[2019-01-18 21:41] VITALS: BMI 32.2
[2019-01-18] MEDS ORDERED: VANCOMYCIN HCL 1.75 GM in SOD CHLORIDE 0.9% 500 ML IVPB SCH (23:30)
[2019-01-19 02:00] VITALS: BP 120/66; PULSE 76; RESP 18
[2019-01-19] MEDS: ACCU-CHEK XX SCH ×5 (02:00→21:34)
[2019-01-19] MEDS: ALBUTEROL/IPRATROPIUM (NEB) 3 ML AMP HHN SCH ×4 (02:36→21:06)
[2019-01-19] MEDS: oxyCODONE 5 MG TAB PO PRN ×2 (03:18→16:36)
[2019-01-19] MEDS: LEVOTHYROXINE 125 MCG TAB PO SCH (06:14)
[2019-01-19] MEDS: PANTOPRAZOLE (EC) 40 MG TAB PO SCH (06:14)
[2019-01-19] MEDS: FUROSEMIDE 20 MG INJ IV SCH ×3 (06:14→21:35)
[2019-01-19 07:41] VITALS: BP 113/56; PULSE 82; RESP 18
[2019-01-19] MEDS: INSULIN ASPART [NOVOLOG] 3 ML PEN SC SCH ×4 (07:50→21:00)
[2019-01-19] MEDS: DOCUSATE SODIUM 100 MG CAP PO SCH ×2 (08:10→21:32)
[2019-01-19] MEDS: FOLIC ACID 1 MG TAB PO SCH (08:10)
[2019-01-19] MEDS: FERROUS SULFATE (EC) 325 MG TAB PO SCH ×3 (08:11→18:25)
[2019-01-19] MEDS: ASCORBIC ACID 250 MG TAB PO SCH (08:11)
[2019-01-19] MEDS: POLYETHYLENE GLYCOL 17 GM PACKET PO SCH (08:11)
[2019-01-19] MEDS: ASPIRIN 81 MG TAB PO SCH (08:11)
[2019-01-19] MEDS: BALSAM PERU/CASTOR OIL 60 GM TUBE TOP SCH ×2 (08:13→21:34)
[2019-01-19] MEDS: NYSTATIN/TRIAMCINOLONE 15 GM CR TOP SCH ×2 (08:13→21:34)
[2019-01-19] MEDS: NYSTATIN 30 GM POWDER BTL TOP SCH ×2 (08:14→21:34)
[2019-01-19] MEDS: AQUAPHOR 52.5 GM OINT TOP SCH ×2 (08:17→22:50)
[2019-01-19] MEDS: ZINC SULFATE 220 MG CAP PO SCH (08:24)
[2019-01-19] MEDS: PREGABALIN 25 MG CAP PO SCH ×3 (08:24→21:37)
[2019-01-19] MEDS: METOPROLOL 50 MG TAB PO SCH ×2 (08:25→21:33)
[2019-01-19] MEDS: MULTIVITAMINS THERAPEUTIC TAB PO SCH (08:28)
--- NOTE | 2019-01-19 09:57 | CONS ---
Assessment/Plan Assessment/Plan Hospital Course (Demo Recall) ID PROGRESS NOTE =>Please refer to Dr. Fournier's FULL CONSULT NOTE dictation 01/05/19 CURRENT ABX: DAY # => Ertapenem + Cancidas + Vanco IV 01/18/19 0944 01/19/19 0419 24 H INTERVAL SUMMARY * BCx (+)Staph Aureus -- final pending == RN called me last night and I gave verbal order for Vanco IV * RN calling me again this am -- tells me sepsis protocol initiated and order for lactic acid placed, she called primary who told her to page me again; I called RN back and thanked her for the information; however I was already advised last night that patient is septic -- explained to her there is no further action or recs from ID as the patient is clinically stable. * Awake, alert, responsive, no fevers, VSS, transferred to [facility] Med-Surg from REHAB -- he tells me he was transferred because he needed an IV placed MICRO/OTHER * 01/17/19 BCX (+) Staph BLOOD CULTURE Preliminary Organism 1 STAPHYLOCOCCUS SPECIES * 01/05/19 BCx (-) * Skin Cx (+)Mateus Albicans HPI/HOSPITAL COURSE * 88 yo M w/multiple-cardiopulmonary co-morbid conditions -- readmitted with sepsis likely due to pulmonary infection. * Patient s/p recent admission for PNA with radiological improvement -- now returns with probable persistent pulm infection + SIGNIFICANT YEAST DERMATOMYCOSIS GROIN -- Primary has narrowed ABX spectrum for concern YEAST infection and MICHELLE which is an effective strategy. * WBC down with empiric ABX coverage. * ROS: Limited by patient's critical illness DIAGNOSTIC IMAGING * 01/15/19 CT CHEST: IMPRESSION: Patchy bilateral lung opacities, possibly representing multifocal pneumonia.Small to moderate bilateral pleural effusions.Status post CABG.Moderate atherosclerotic calcifications. Enlarged main pulmonary artery, possibly representing pulmonary hypertension.Mild diffuse subcutaneous edema.Mild to moderate dextroscoliosis. * 01/07/19 CXR:Cardiomegaly with interval mild increase in diffuse interstitial/air space opacities, representing edema and/or pneumonia. Small bilateral pleural effusions. * 12/16/18 2D ECHO Conclusions: * Normal left ventricular systolic function. Normal left ventricular cavity size. Moderate concentric left ventricular hypertrophy. Ejection fraction is visually estimated at 60 %. Tissue Doppler/Mitral Doppler indices are consistent with restrictive physiology with markedly elevated left atrial pressure (Stage III-IV diastolic dysfunction). * Mild right ventricular systolic dysfunction. Mild enlargement of right ventricle. * There is moderate enlargement of right atrium. * Normal appearance and function of the mitral valve with trace physiologic regurgitation. Mitral valve leaflets appear mildly thickened. Mild mitral annular calcification. Mild to moderate mitral valve regurgitation. * Normal appearance of the aortic valve. No significant aortic stenosis or insufficiency. No hemodynamically significant aortic stenosis by doppler. Aortic cusps appear mildly calcified. Mild aortic valve regurgitation. * Normal appearance of the tricuspid valve. Estimated peak PA systolic pressure 74 mmHg. There is moderate tricuspid regurgitation. PHYSICAL EXAMINATION: GENERAL: VSS, frail elderly male lethargic -- HEENT: AT, NC, anicteric NECK: Supple, CHEST: Equal chest rise bilaterally - diminishes bilateral HEART: Pulse RRR ABDOMEN: Soft / NT EXTREMITIES: Warm, dry SKIN: No rash, no diaphoresis == BILATERAL AXILLARY, GROIN, SANDY YEAST INFECTION ID ASSESSMENT 88 yo M w/multiple chronic co-morbid conditions re-admit with: 1. Recurrent Sepsis -- Staph aureus (+) BCx 01/17/19 transferred to [facility] from REHAB == Persistent HCAP on CT Chest 01/15/19 * Admit w/acute hypoxic SOB * Admit with fevers, leukocytosis, generalized weakness, lactate are increased to 3.0 and 2.4 * Chest Xray showed patchy bilateral perihilar increased interstitial changes, may represent an infectious/inflammatory process versus mild pulmonary vascular congestion. 2. 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 4. 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 Advanced rheumatoid arthritis with possibility of rheumatoid lung as well. * Patient was on Remicade and stopped using it about a year ago. 6. Hypertension w/HTN heart disease 7. Hyperlipidemia. 8. Hypothyroidism. 9. Normocytic normochromic chronic anemia 10. Bilateral groin cellulitis more likely associated with mateus, patches in groin and axilla bilaterally-> recent ABX for PNA 11. Acute on chronic renal failure likely secondary to sepsis, on discharge in November creatinine 1.54, now 1.93 12. Diabetes type 2. 13. CV disease, CAD, PAD, Hx of CABGx2, carotid stent 14. Peripheral vascular disease. 15. Chronic A.Fib on anticoagulants 16. Thrombocytopenia. 17. BPH on Hytrin (-)MRSA Nares ABX ALLERGIES: KNDA INVASIVES: PIV CURRENT ABX: DAY # =>Ertapenem + Cancidas + Vanco IV ID RECOMMENDATIONS/PLAN: 1. Started on VAnco IV for Staph aureus bacteremia & HCAP -- clinically stable 2. Continue current ABX -- ID colleague to f/u Sunday . Consultation Date/Type/Reason Admit Date/Time Jan 17, 2019 at 15:58 Initial Consult Date Date/Time of Note DATE: 01/19/19 TIME: 09:46 Exam/Review of Systems Exam Vitals Vital Signs Date Temp Pulse Resp B/P (MAP) Pulse Ox O2 O2 Flow FiO2 Time Delivery Rate 01/19/19 2.0 08:56 01/19/19 Nasal 08:39 Cannula 01/19/19 98.0 82 18 113/56 99 07:41 (75) 01/18/19 21 09:23 Intake and Output 01/18/19 01/18/19 01/19/19 1515:00 23:00 07:00 IntakeIntake Total 2160 ml 1430 ml OutputOutput Total 700 ml BalanceBalance 1460 ml 1430 ml Results Result Diagram: 01/18/19 0944 01/19/19 0419 Results 24hrs Laboratory Tests Test 01/18/19 13:50 01/18/19 17:35 01/18/19 18:18 01/18/19 18:22 Bedside Glucose 105 115 Stool Occult Blood NEGATIVE Absolute 0.097 Reticulocyte Count Percent Reticulocyte 3.5 H Count Iron Level 12 L Total Iron Binding 194 L Capacity Percent Iron 6 L Saturation Ferritin 1200.0 H Vitamin B12 Level 858 Folate > 20.0 H Test 01/18/19 21:04 01/19/19 04:19 01/19/19 08:06 01/19/19 08:58 Bedside Glucose 89 80 Blood Urea Nitrogen 44 H Creatinine 1.44 H Lactic Acid Level 1.6 Medications Medication Current Medications Docusate Sodium (Colace) 100 mg BID PO Last administered on 01/19/19at 08:10; Admin Dose 100 MG; Start 01/17/19 at 18:17 Senna (Senokot) 1 tab HS PO Last administered on 01/18/19 21:10; Admin Dose 1 TAB; Start 01/17/19 at 18:17 Lactulose (Enulose) 20 gm DAILY PRN PO CONSTIPATION; Start 01/17/19 at 18:17 Acetaminophen (Tylenol Tab) 650 mg Q4H PRN PO PAIN; Start 01/17/19 at 18:17 Miscellaneous Information (Pending Santyl Order For Wound Care) This patient ramirez... PRN PRN XX WOUND CARE; Start 01/17/19 at 18:17 Diagnostic Test (Pha) (Accu-Chek) 1 ea AC MEALS AND BEDTIME XX Last administered on 01/19/19 08:10; Admin Dose 1 EA; Start 01/17/19 at 18:17 Diagnostic Test (Pha) (Accu-Chek) 1 ea 02 XX ; Start 01/17/19 at 18:17 Albuterol/ Ipratropium (Duoneb) 3 ml Q2H RESP THERAPY PRN HHN SHORTNESS OF BREATH; Start 01/17/19 at 18:17 Atorvastatin Calcium (Lipitor) 40 mg QHS PO Last administered on 01/18/19 21:10; Admin Dose 40 MG; Start 01/17/19 at 18:17 Bisacodyl (Dulcolax) 10 mg BID PRN PO CONSTIPATION; Start 01/17/19 at 18:17 Folic Acid (Folic Acid) 1 mg DAILY PO Last administered on 01/19/19 08:10; Admin Dose 1 MG; Start 01/17/19 at 18:17 Insulin Aspart (Novolog Insulin Pen) NOVOLOG *MILD* ALGORITHM WITH MEALS BEDTIME SC ; Start 01/17/19 at 18:17 Insulin Glargine (Lantus) 10 units QHS SC Last administered on 01/18/19 21:17; Admin Dose 10 UNITS; Start 01/17/19 at 18:17 Latanoprost (Xalatan) 1 drop HS BOTH EYES Last administered on 01/18/19 21:09; Admin Dose 1 DROP; Start 01/17/19 at 18:17 Levothyroxine Sodium (Synthroid) 125 mcg BEFORE BREAKFAST PO Last administered on 01/19/19 06:14; Admin Dose 125 MCG; Start 01/17/19 at 18:17 Metoprolol Tartrate (Lopressor) 50 mg BID PO Last administered on 01/19/19at 08:25; Admin Dose 50 MG; Start 01/17/19 at 18:17 Nitroglycerin (Nitroglycerin (Sl Tab) 0.4 Mg) 0.4 tab Q5M PRN SL CHEST PAIN; Start 01/17/19 at 18:17 Nystatin/ Triamcinolone Acetonide (Mycolog Cr) 1 applic BID TOP Last administered on 01/19/19at 08:13; Admin Dose 1 APPLIC; Start 01/17/19 at 18:17 Nystatin (Nystatin Powder) 1 applic BID TOP Last administered on 01/19/19at 08:14; Admin Dose 1 APPLIC; Start 01/17/19 at 18:17 Pantoprazole (Protonix Tab) 40 mg DAILY@06 PO Last administered on 01/19/19at 06:14; Admin Dose 40 MG; Start 01/17/19 at 18:17 Polyethylene Glycol (Miralax) 17 gm DAILY PO Last administered on 01/19/19at 08:11; Admin Dose 17 GM; Start 01/17/19 at 18:17 Pregabalin (Lyrica) 25 mg TID PO Last administered on 01/19/19at 08:24; Admin Dose 25 MG; Start 01/17/19 at 18:17 IV Flush (NS 3 ml) 3 ml PER PROTOCOL IV ; Start 01/17/19 at 18:17 Terazosin HCl (Hytrin) 10 mg HS PO Last administered on 01/18/19at 21:10; Admin Dose 10 MG; Start 01/17/19 at 18:17 Miscellaneous Information 1 ea NOTE XX ; Start 01/17/19 at 18:17 Glucose (Glutose) 15 gm Q15M PRN PO DECREASED GLUCOSE; Start 01/17/19 at 18:17 Glucose (Glutose) 22.5 gm Q15M PRN PO DECREASED GLUCOSE; Start 01/17/19 at 18:17 Dextrose (D50w Syringe) 25 ml Q15M PRN IV DECREASED GLUCOSE; Start 01/17/19 at 18:17 Dextrose (D50w Syringe) 50 ml Q15M PRN IV DECREASED GLUCOSE; Start 01/17/19 at 18:17 Glucagon (Glucagen) 1 mg Q15M PRN IM DECREASED GLUCOSE; Start 01/17/19 at 18:17 Glucose (Glutose) 15 gm Q15M PRN BUCCAL DECREASED GLUCOSE; Start 01/17/19 at 18:17 Multivitamins Therapeutic (Theragran) 1 tab DAILY PO Last administered on 01/19/19 08:28; Admin Dose 1 TAB; Start 01/17/19 at 18:17 Zinc Sulfate (Zinc Sulfate) 220 mg DAILY PO Last administered on 01/19/19 08:24; Admin Dose 220 MG; Start 01/17/19 at 18:17 Ascorbic Acid (Vitamin C) 250 mg DAILY PO Last administered on 01/19/19 08:11; Admin Dose 250 MG; Start 01/17/19 at 18:17 Albuterol/ Ipratropium (Duoneb) 3 ml Q6H RESP THERAPY HHN Last administered on 01/19/19 02:36; Admin Dose 3 ML; Start 01/17/19 at 18:17 Multi-Ingredient Ointment (Aquaphor Oint 52.5 Gm) 1 applic BID TOP Last administered on 01/19/19 08:17; Admin Dose 1 APPLIC; Start 01/17/19 at 18:17 Aspirin (Aspirin) 81 mg DAILY PO Last administered on 01/19/19 08:11; Admin Dose 81 MG; Start 01/17/19 at 18:17 Ferrous Sulfate (Ferrous Sulfate (Ec)) 325 mg WITH MEALS PO Last administered on 01/19/19 08:11; Admin Dose 325 MG; Start 01/17/19 at 18:17 Bisacodyl (Dulcolax Supp) 10 mg DAILY PRN [place] CONSTIPATION; Start 01/17/19 at 18:17 Acetaminophen/ Hydrocodone Bitart ([place] (5/325)) 2 tab Q4H PRN PO SEVERE PAIN LEVEL 7-10 Last administered on 01/18/19 06:19; Admin Dose 2 TAB; Start 01/17/19 at 18:17 Caspofungin 50 mg/ Sodium Chloride 250 ml @ 250 mls/hr Q24H IVPB Last administered on 01/18/19 18:15; Admin Dose 250 MLS/HR; Start 01/17/19 at 18:17 Ertapenem 1 gm/ Sodium Chloride 100 ml @ 200 mls/hr Q24H IVPB Last administered on 01/18/19 23:12; Admin Dose 200 MLS/HR; Start 01/17/19 at 23:30 Linezolid (Zyvox) 600 mg BID PO Last administered on 01/18/19at 21:10; Admin Dose 600 MG; Start 01/17/19 at 21:00; Status Hold Cyanocobalamin (Vitamin B12 Inj) 1,000 mcg Q7D IM Last administered on 01/18/19at 13:58; Admin Dose 1,000 MCG; Start 01/18/19 at 13:00 Furosemide (Lasix) 20 mg BID DIURETICS IV Last administered on 01/19/19at 06:14; Admin Dose 20 MG; Start 01/18/19 at 18:00; Stop 02/02/19 at 17:59 Oxycodone HCl (Roxicodone) 10 mg Q4H PRN PO MODERATE PAIN LEVEL 4-6 Last administered on 01/19/19at 03:18; Admin Dose 10 MG; Start 01/18/19 at 15:30 Vancomycin HCl (Vanco Iv Per Pharmacy) VANCOMYCIN PER PHARMACY PER PROTOCOL XX ; Start 01/18/19 at 20:30 Vancomycin HCl 250 ml @ 125 mls/hr Q24H IVPB ; Start 01/20/19 at 00:00 NEDA ENRIQUEZ NP Jan 19, 2019 09:57
--- NOTE | 2019-01-19 12:28 | CONS ---
Assessment/Plan Assessment/Plan Hospital Course (Demo Recall) 88 yo male presents from [place] for SOB and febrile Interval hx: Neg fob, elevate retic, Low iron, tibc, [place] [address]. Per RN he is not completely oriented on time. lactate sent. 1. Severe anemia likely due to chronic disease, last work up while admitted to [facility] about a week ago was neg for GI bleeding, including EGD/colon which was done -s/p EGD and colonoscopy by Dr Frost 01/09/19 which didn't find an obvious GI etiology to explain anemia. AVM or a small lesion could be missed due to poor prep. Pt likely needs capsule endoscopy -Neg fob, elevate retic, Low iron, tibc, [place] [id number] 2. Cystic lesion along pancreas body - 4.3 cm cystic lesion along the pancreas body, enlarged since 10/10/2012 (previously 2.4 cm). 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 -CEA wnl 3. Severe gastritis 4. Hemorrhoids 5. Hital hernia 6. A fib, -eliquis was stopped 01/06 during previous admission, on ASA 7. COPD 8. HTN 9. Hypothyroidism 10. Bilateral groin cellulitis 11. Rheumatoid arthritis. 12. Diabetes mellitus. 13. Peripheral vascular disease. 14. CHF 15. 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 No intra-abdominal inflammation or lymphadenopathy. 2. 4.3 cm cystic lesion along the pancreas body, enlarged since 10/10/2012 (previously 2.4 cm). 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 If clinically warranted, this could be further evaluated with contrast-enhanced MRI. 3. No obstructive uropathy or urinary stone. 4. Enlarged prostate gland. Correlation with PSA level is recommended. 5. Moderate atherosclerotic arterial calcifications. 6. Diffuse subcutaneous edema. 7. Status post posterior decompression and fusion at L5-S1. A malpositioned pedicle screw and impinges on the left L4-5 neural foramen, unchanged. 8. Grade 2 degenerative L4 anterolisthesis and grade 1 degenerative L5 anterolisthesis. Plan Anemia work up noted, heme onc following Pt will need outpatient EUS to evaluate pancreatic mass Recommend capsule endoscopy as outpatient GI prophylaxis: protonix QD Continue Iron, consider IV iron since pt iron, tibc still low Pain management Pt examined and plan of care discussed with Dr. Frost Consultation Date/Type/Reason Admit Date/Time Jan 17, 2019 at 15:58 Initial Consult Date 01/18/19 Date/Time of Note DATE: 01/19/19 TIME: 12:25 Exam/Review of Systems Exam Vitals Vital Signs Date Temp Pulse Resp B/P (MAP) Pulse Ox O2 O2 Flow FiO2 Time Delivery Rate 01/19/19 2.0 08:56 01/19/19 Nasal 08:39 Cannula 01/19/19 98.0 82 18 113/56 99 07:41 (75) 01/18/19 09:23 Intake and Output 01/18/19 01/18/19 01/19/19 1515:00 23:00 07:00 IntakeIntake Total 2160 ml 1430 ml OutputOutput Total 700 ml BalanceBalance 1460 ml 1430 ml Constitutional: alert Psych: no complaints Head: normocephalic Eyes: nl sclera, PERRL ENMT: mucosa pink and moist Respiratory: normal air movement Gastrointestinal: soft, non-tender Neurological: nl mental status Results Result Diagram: 01/18/19 0944 01/19/19 0419 Results 24hrs Laboratory Tests Test 01/18/19 13:50 01/18/19 17:35 01/18/19 18:18 01/18/19 18:22 Bedside Glucose 105 115 Stool Occult Blood NEGATIVE Absolute 0.097 Reticulocyte Count Percent Reticulocyte 3.5 H Count Iron Level 12 L Total Iron Binding 194 L Capacity Percent Iron 6 L Saturation Ferritin 1200.0 H Vitamin B12 Level 858 Folate > 20.0 H Test 01/18/19 21:04 01/19/19 04:19 01/19/19 08:06 01/19/19 08:58 Bedside Glucose 89 80 Blood Urea Nitrogen 44 H Creatinine 1.44 H Lactic Acid Level 1.6 Medications Medication Current Medications Docusate Sodium (Colace) 100 mg BID PO Last administered on 01/19/19at 08:10; Admin Dose 100 MG; Start 01/17/19 at 18:17 Senna (Senokot) 1 tab HS PO Last administered on 01/18/19at 21:10; Admin Dose 1 TAB; Start 01/17/19 at 18:17 Lactulose (Enulose) 20 gm DAILY PRN PO CONSTIPATION; Start 01/17/19 at 18:17 Acetaminophen (Tylenol Tab) 650 mg Q4H PRN PO PAIN; Start 01/17/19 at 18:17 Miscellaneous Information (Pending [facility] Order For Wound Care) This patient ramirez... PRN PRN XX WOUND CARE; Start 01/17/19 at 18:17 Diagnostic Test (Pha) (Accu-Chek) 1 ea AC MEALS AND BEDTIME XX Last administered on 01/19/19 08:10; Admin Dose 1 EA; Start 01/17/19 at 18:17 Diagnostic Test (Pha) (Accu-Chek) 1 ea 02 XX ; Start 01/17/19 at 18:17 Albuterol/ Ipratropium (Duoneb) 3 ml Q2H RESP THERAPY PRN HHN SHORTNESS OF BREATH; Start 01/17/19 at 18:17 Atorvastatin Calcium (Lipitor) 40 mg QHS PO Last administered on 01/18/19 21:10; Admin Dose 40 MG; Start 01/17/19 at 18:17 Bisacodyl (Dulcolax) 10 mg BID PRN PO CONSTIPATION; Start 01/17/19 at 18:17 Folic Acid (Folic Acid) 1 mg DAILY PO Last administered on 01/19/19 08:10; Admin Dose 1 MG; Start 01/17/19 at 18:17 Insulin Aspart (Novolog Insulin Pen) NOVOLOG *MILD* ALGORITHM WITH MEALS BEDTIME SC ; Start 01/17/19 at 18:17 Insulin Glargine (Lantus) 10 units QHS SC Last administered on 01/18/19 21:17; Admin Dose 10 UNITS; Start 01/17/19 at 18:17 Latanoprost (Xalatan) 1 drop HS BOTH EYES Last administered on 01/18/19 21:09; Admin Dose 1 DROP; Start 01/17/19 at 18:17 Levothyroxine Sodium (Synthroid) 125 mcg BEFORE BREAKFAST PO Last administered on 01/19/19 06:14; Admin Dose 125 MCG; Start 01/17/19 at 18:17 Metoprolol Tartrate (Lopressor) 50 mg BID PO Last administered on 01/19/19 08:25; Admin Dose 50 MG; Start 01/17/19 at 18:17 Nitroglycerin (Nitroglycerin (Sl Tab) 0.4 Mg) 0.4 tab Q5M PRN SL CHEST PAIN; Start 01/17/19 at 18:17 Nystatin/ Triamcinolone Acetonide (Mycolog Cr) 1 applic BID TOP Last administered on 01/19/19at 08:13; Admin Dose 1 APPLIC; Start 01/17/19 at 18:17 Nystatin (Nystatin Powder) 1 applic BID TOP Last administered on 01/19/19at 08:14; Admin Dose 1 APPLIC; Start 01/17/19 at 18:17 Pantoprazole (Protonix Tab) 40 mg DAILY@06 PO Last administered on 01/19/19at 06:14; Admin Dose 40 MG; Start 01/17/19 at 18:17 Polyethylene Glycol (Miralax) 17 gm DAILY PO Last administered on 01/19/19at 08 :11; Admin Dose 17 GM; Start 01/17/19 at 18:17 Pregabalin (Lyrica) 25 mg TID PO Last administered on 01/19/19at 08:24; Admin Dose 25 MG; Start 01/17/19 at 18:17 IV Flush (NS 3 ml) 3 ml PER PROTOCOL IV ; Start 01/17/19 at 18:17 Terazosin HCl (Hytrin) 10 mg HS PO Last administered on 01/18/19at 21:10; Admin Dose 10 MG; Start 01/17/19 at 18:17 Miscellaneous Information 1 ea NOTE XX ; Start 01/17/19 at 18:17 Glucose (Glutose) 15 gm Q15M PRN PO DECREASED GLUCOSE; Start 01/17/19 at 18:17 Glucose (Glutose) 22.5 gm Q15M PRN PO DECREASED GLUCOSE; Start 01/17/19 at 18:17 Dextrose (D50w Syringe) 25 ml Q15M PRN IV DECREASED GLUCOSE; Start 01/17/19 at 18:17 Dextrose (D50w Syringe) 50 ml Q15M PRN IV DECREASED GLUCOSE; Start 01/17/19 at 18:17 Glucagon (Glucagen) 1 mg Q15M PRN IM DECREASED GLUCOSE; Start 01/17/19 at 18:17 Glucose (Glutose) 15 gm Q15M PRN BUCCAL DECREASED GLUCOSE; Start 01/17/19 at 18:17 Multivitamins Therapeutic (Theragran) 1 tab DAILY PO Last administered on 01/19/19 08:28; Admin Dose 1 TAB; Start 01/17/19 at 18:17 Zinc Sulfate (Zinc Sulfate) 220 mg DAILY PO Last administered on 01/19/19 08:24; Admin Dose 220 MG; Start 01/17/19 at 18:17 Ascorbic Acid (Vitamin C) 250 mg DAILY PO Last administered on 01/19/19 08:11; Admin Dose 250 MG; Start 01/17/19 at 18:17 Albuterol/ Ipratropium (Duoneb) 3 ml Q6H RESP THERAPY HHN Last administered on 01/19/19 02:36; Admin Dose 3 ML; Start 01/17/19 at 18:17 Multi-Ingredient Ointment (Aquaphor Oint 52.5 Gm) 1 applic BID TOP Last administered on 01/19/19 08:17; Admin Dose 1 APPLIC; Start 01/17/19 at 18:17 Aspirin (Aspirin) 81 mg DAILY PO Last administered on 01/19/19 08:11; Admin Dose 81 MG; Start 01/17/19 at 18:17 Ferrous Sulfate (Ferrous Sulfate (Ec)) 325 mg WITH MEALS PO Last administered on 01/19/19 08:11; Admin Dose 325 MG; Start 01/17/19 at 18:17 Bisacodyl (Dulcolax Supp) [address] CONSTIPATION; Start 01/17/19 at 18:17 Acetaminophen/ Hydrocodone Bitart ([place] (5/325)) 2 tab Q4H PRN PO SEVERE PAIN LEVEL 7-10 Last administered on 01/18/19 06:19; Admin Dose 2 TAB; Start 01/17/19 at 18:17 Caspofungin 50 mg/ Sodium Chloride 250 ml @ 250 mls/hr Q24H IVPB Last administered on 01/18/19 18:15; Admin Dose 250 MLS/HR; Start 01/17/19 at 18:17 Ertapenem 1 gm/ Sodium Chloride 100 ml @ 200 mls/hr Q24H IVPB Last administered on 01/18/19 23:12; Admin Dose 200 MLS/HR; Start 01/17/19 at 23:30 Linezolid (Zyvox) 600 mg BID PO Last administered on 01/18/19 21:10; Admin Dose 600 MG; Start 01/17/19 at 21:00; Status Hold Cyanocobalamin (Vitamin B12 Inj) 1,000 mcg Q7D IM Last administered on 9at 13:58; Admin Dose 1,000 MCG; Start 01/18/19 at 13:00 Furosemide (Lasix) 20 mg BID DIURETICS IV Last administered on 01/19/19at 06:14; Admin Dose 20 MG; Start 01/18/19 at 18:00; Stop 02/02/19 at 17:59 Oxycodone HCl (Roxicodone) 10 mg Q4H PRN PO MODERATE PAIN LEVEL 4-6 Last administered on 01/19/19at 03:18; Admin Dose 10 MG; Start 01/18/19 at 15:30 Vancomycin HCl (Vanco Iv Per Pharmacy) VANCOMYCIN PER PHARMACY PER PROTOCOL XX ; Start 01/18/19 at 20:30 Vancomycin HCl 250 ml @ 125 mls/hr Q24H IVPB ; Start 01/20/19 at 00:00 GISELLA VENTURA Jan 19, 2019 12:28
[2019-01-19 14:38] VITALS: BP 132/59; PULSE 84; RESP 20
--- NOTE | 2019-01-19 15:03 | CONS ---
Consult Date/Type/Reason Admit Date/Time Jan 17, 2019 at 15:58 Initial Consult Date Date/Time of Note DATE: 01/19/19 TIME: 15:00 Subjective No acute events - BP stable - pt off ful anti-coagulation - will defer to Dr. Robertson to resume per family wishes - con't diuresis now. ROS: No fever, no chills, no nausea, no vomiting, no diarrhea/constipation No recent weight changes No chest pain, no PND, no orthopnea - improved SOB No dizziness, blurred vision No thirst, no heat or cold intolerance Objective Vitals Vital Signs Date Temp Pulse Resp B/P (MAP) Pulse Ox O2 O2 Flow FiO2 Time Delivery Rate 01/19/19 97.0 84 20 132/59 98 Nasal 14:38 (83) Cannula 01/19/19 2.0 13:40 01/18/19 21 09:23 Intake and Output 01/18/19 01/18/19 01/19/19 1515:00 23:00 07:00 IntakeIntake Total 2160 ml 1430 ml OutputOutput Total 700 ml BalanceBalance 1460 ml 1430 ml Exam General: WN/WD/NAD, AOx 3 HEENT: Unicetric/atraumatic/EOMI (follow commands) NECK: JVD elevated, no thyromegaly Lymph: no lymphadenopathy HEART: regular with no S3, II/ systolic murmur at apex LUNGS: Coarse sounds ABD: soft, NT, ND, +BS : Intact Neuro: non focal SKIN: chronic changes - improved rash EXT: trace edema Results/Medications Result Diagram: 01/18/19 0944 01/19/19 0419 Results 24 hrs Laboratory Tests Test 01/18/19 17:35 01/18/19 18:18 01/18/19 18:22 01/18/19 21:04 Stool Occult Blood NEGATIVE Bedside Glucose 115 89 Absolute 0.097 Reticulocyte Count Percent Reticulocyte 3.5 H Count Iron Level 12 L Total Iron Binding 194 L Capacity Percent Iron 6 L Saturation Ferritin 1200.0 H Vitamin B12 Level 858 Folate > 20.0 H Test 01/19/19 04:19 01/19/19 08:06 01/19/19 08:58 01/19/19 12:47 Blood Urea Nitrogen 44 H Creatinine 1.44 H Bedside Glucose 80 104 Lactic Acid Level 1.6 Home Meds Active Scripts Apixaban* (Eliquis*) 5 Mg Tablet, 2.5 MG PO BID for 30 Days, TAB Prov:IVAN AKHTAR MD 12/20/18 Metoprolol Tartrate* (Lopressor*) 50 Mg Tab, 50 MG PO BID for 30 Days, TAB Prov:COOPER CARO 12/20/18 Reported Medications Furosemide* (Lasix*) 20 Mg Tablet, 20 MG PO BID, TAB 01/05/19 Polyethylene Glycol* (Miralax*) 17 Gm Powd.pack, 17 GM PO DAILY, #30 PACKET 12/15/18 Nifedipine* (Nifedipine ER*) 60 Mg Tablet.sa, 60 MG PO DAILY, TAB.SA 12/15/18 Bisacodyl* (Bisacodyl*) 5 Mg Tablet.dr, 10 MG PO BID PRN for CONSTIPATION, TAB 12/15/18 Pregabalin* (Lyrica*) 25 Mg Capsule, 25 MG PO TID, CAP 12/15/18 Bimatoprost* (Lumigan*) 0.01%-5 Ml Opht Drops, 1 DROP BOTH EYES HS, EA 03/02/18 Cetirizine Hcl* (Cetirizine Hcl*) 10 Mg Tablet, 10 MG PO DAILY, #30 TAB 03/02/18 Insulin Glargine* (Lantus*) 100 Unit/Ml Soln, 10 UNIT SC QHS, #1 VIAL 03/02/18 Ergocalciferol (Vitamin D2) (VITAMIN D2) 2,000 Unit Tablet, 2000 UNIT PO DAILY, TAB 03/02/18 Famotidine* (Famotidine*) 20 Mg Tablet, 20 MG PO DAILY, #30 TAB 03/02/18 Ferrous Sulfate* (Ferrous Sulfate*) 325 Mg Tabec, 325 MG PO BID, TAB 03/02/18 Nitroglycerin* (Nitrostat*) 0.4 Mg Tab.subl, 0.4 MG SL Q5MIN PRN for CHEST PAIN, BOTTLE 03/02/18 Terazosin Hcl* (Terazosin Hcl*) 10 Mg Capsule, 10 MG PO HS, CAP 03/02/18 Levothyroxine Sodium* (Levoxyl*) 125 Mcg Tablet, 125 MCG PO BEFORE BREAKFAST, #30 TAB 03/02/18 Allopurinol* (Allopurinol*) 100 Mg Tablet, 100 MG PO BID, TAB 03/02/18 Atorvastatin* (Atorvastatin*) 40 Mg Tablet, 40 MG PO QHS, #30 TAB 03/02/18 Folic Acid* (Folic Acid*) 1 Mg Tablet, 1 MG PO DAILY, TAB 03/02/18 Medications Current Medications Docusate Sodium (Colace) 100 mg BID PO Last administered on 01/19/19at 08:10; Admin Dose 100 MG; Start 01/17/19 at 18:17 Senna (Senokot) 1 tab HS PO Last administered on 01/18/19at 21:10; Admin Dose 1 TAB; Start 01/17/19 at 18:17 Lactulose (Enulose) 20 gm DAILY PRN PO CONSTIPATION; Start 01/17/19 at 18:17 Acetaminophen (Tylenol Tab) 650 mg Q4H PRN PO PAIN; Start 01/17/19 at 18:17 Miscellaneous Information (Pending [facility] Order For Wound Care) This patient ramirez... PRN PRN XX WOUND CARE; Start 01/17/19 at 18:17 Diagnostic Test (Pha) (Accu-Chek) 1 ea AC MEALS AND BEDTIME XX Last administ ered on 01/19/19at 11:10; Admin Dose 1 EA; Start 01/17/19 at 18:17 Diagnostic Test (Pha) (Accu-Chek) 1 ea 02 XX ; Start 01/17/19 at 18:17 Albuterol/ Ipratropium (Duoneb) 3 ml Q2H RESP THERAPY PRN HHN SHORTNESS OF BREATH; Start 01/17/19 at 18:17 Atorvastatin Calcium (Lipitor) 40 mg QHS PO Last administered on 01/18/19at 21:10; Admin Dose 40 MG; Start 01/17/19 at 18:17 Bisacodyl (Dulcolax) 10 mg BID PRN PO CONSTIPATION; Start 01/17/19 at 18:17 Folic Acid (Folic Acid) 1 mg DAILY PO Last administered on 01/19/19at 08:10; Admin Dose 1 MG; Start 01/17/19 at 18:17 Insulin Aspart (Novolog Insulin Pen) NOVOLOG *MILD* ALGORITHM WITH MEALS BEDTIME SC ; Start 01/17/19 at 18:17 Insulin Glargine (Lantus) 10 units QHS SC Last administered on 01/18/19 21:17; Admin Dose 10 UNITS; Start 01/17/19 at 18:17 Latanoprost (Xalatan) 1 drop HS BOTH EYES Last administered on 01/18/19 21:09; Admin Dose 1 DROP; Start 01/17/19 at 18:17 Levothyroxine Sodium (Synthroid) 125 mcg BEFORE BREAKFAST PO Last administered on 01/19/19 06:14; Admin Dose 125 MCG; Start 01/17/19 at 18:17 Metoprolol Tartrate (Lopressor) 50 mg BID PO Last administered on 01/19/19 08:25; Admin Dose 50 MG; Start 01/17/19 at 18:17 Nitroglycerin (Nitroglycerin (Sl Tab) 0.4 Mg) 0.4 tab Q5M PRN SL CHEST PAIN; Start 01/17/19 at 18:17 Nystatin/ Triamcinolone Acetonide (Mycolog Cr) 1 applic BID TOP Last administered on 01/19/19 08:13; Admin Dose 1 APPLIC; Start 01/17/19 at 18:17 Nystatin (Nystatin Powder) 1 applic BID TOP Last administered on 01/19/19 08:14; Admin Dose 1 APPLIC; Start 01/17/19 at 18:17 Pantoprazole (Protonix Tab) 40 mg DAILY@06 PO Last administered on 01/19/19 06:14; Admin Dose 40 MG; Start 01/17/19 at 18:17 Polyethylene Glycol (Miralax) 17 gm DAILY PO Last administered on 01/19/19 08:11; Admin Dose 17 GM; Start 01/17/19 at 18:17 Pregabalin (Lyrica) 25 mg TID PO Last administered on 01/19/19 13:11; Admin Dose 25 MG; Start 01/17/19 at 18:17 IV Flush (NS 3 ml) 3 ml PER PROTOCOL IV ; Start 01/17/19 at 18:17 Terazosin HCl (Hytrin) 10 mg HS PO Last administered on 01/18/19 21:10; Admin Dose 10 MG; Start 01/17/19 at 18:17 Miscellaneous Information 1 ea NOTE XX ; Start 01/17/19 at 18:17 Glucose (Glutose) 15 gm Q15M PRN PO DECREASED GLUCOSE; Start 01/17/19 at 18:17 Glucose (Glutose) 22.5 gm Q15M PRN PO DECREASED GLUCOSE; Start 01/17/19 at 18:17 Dextrose (D50w Syringe) 25 ml Q15M PRN IV DECREASED GLUCOSE; Start 01/17/19 at 18:17 Dextrose (D50w Syringe) 50 ml Q15M PRN IV DECREASED GLUCOSE; Start 01/17/19 at 18:17 Glucagon (Glucagen) 1 mg Q15M PRN IM DECREASED GLUCOSE; Start 01/17/19 at 18:17 Glucose (Glutose) 15 gm Q15M PRN BUCCAL DECREASED GLUCOSE; Start 01/17/19 at 18:17 Multivitamins Therapeutic (Theragran) 1 tab DAILY PO Last administered on 01/19/19 08:28; Admin Dose 1 TAB; Start 01/17/19 at 18:17 Zinc Sulfate (Zinc Sulfate) 220 mg DAILY PO Last administered on 01/19/19 08 :24; Admin Dose 220 MG; Start 01/17/19 at 18:17 Ascorbic Acid (Vitamin C) 250 mg DAILY PO Last administered on 01/19/19 08:11; Admin Dose 250 MG; Start 01/17/19 at 18:17 Albuterol/ Ipratropium (Duoneb) 3 ml Q6H RESP THERAPY HHN Last administered on 01/19/19 13:40; Admin Dose 3 ML; Start 01/17/19 at 18:17 Multi-Ingredient Ointment (Aquaphor Oint 52.5 Gm) 1 applic BID TOP Last administered on 01/19/19 08:17; Admin Dose 1 APPLIC; Start 01/17/19 at 18:17 Aspirin (Aspirin) 81 mg DAILY PO Last administered on 01/19/19 08:11; Admin Dose 81 MG; Start 01/17/19 at 18:17 Ferrous Sulfate (Ferrous Sulfate (Ec)) 325 mg WITH MEALS PO Last administered on 01/19/19 12:46; Admin Dose 325 MG; Start 01/17/19 at 18:17 Bisacodyl (Dulcolax Supp) 10 mg DAILY PRN [place] CONSTIPATION; Start 01/17/19 at 18:17 Acetaminophen/ Hydrocodone Bitart ([place] (5/325)) 2 tab Q4H PRN PO SEVERE PAIN LEVEL 7-10 Last administered on 01/18/19 06:19; Admin Dose 2 TAB; Start 01/17/19 at 18:17 Caspofungin 50 mg/ Sodium Chloride 250 ml @ 250 mls/hr Q24H IVPB Last administered on 01/18/19at 18:15; Admin Dose 250 MLS/HR; Start 01/17/19 at 18:17 Ertapenem 1 gm/ Sodium Chloride 100 ml @ 200 mls/hr Q24H IVPB Last admin istered on 01/18/19at 23:12; Admin Dose 200 MLS/HR; Start 01/17/19 at 23:30 Linezolid (Zyvox) 600 mg BID PO Last administered on 01/18/19 21:10; Admin Dose 600 MG; Start 01/17/19 at 21:00; Status Hold Cyanocobalamin (Vitamin B12 Inj) 1,000 mcg Q7D IM Last administered on 01/18/19at 13:58; Admin Dose 1,000 MCG; Start 01/18/19 at 13:00 Furosemide (Lasix) 20 mg BID DIURETICS IV Last administered on 01/19/19at 06:14; Admin Dose 20 MG; Start 01/18/19 at 18:00; Stop 02/02/19 at 17:59 Oxycodone HCl (Roxicodone) 10 mg Q4H PRN PO MODERATE PAIN LEVEL 4-6 Last administered on 01/19/19at 03:18; Admin Dose 10 MG; Start 01/18/19 at 15:30 Vancomycin HCl (Vanco Iv Per Pharmacy) VANCOMYCIN PER PHARMACY PER PROTOCOL XX ; Start 01/18/19 at 20:30 Vancomycin HCl 250 ml @ 125 mls/hr Q24H IVPB ; Start 01/20/19 at 00:00 Assessment/Plan Hospital Course (Demo Recall) 1. Atrial fibrillation, currently rate controlled.-off systemic anticoagulation due to anemia. On ASA only now - will defer to Melissa Robertson to resume Coumadin vs Eliquis. 2. Possible congestive heart failure by chest x-ray, which will be diastolic, acute on chronic by most recent echo with an EF of 60%.Spot diuresis as needed. Con't to follow. 3. Tricuspid regurgitation, moderate by most recent echo. 4. Acute on chronic renal failure - Cr 1.44 - avoid nephrotoxic meds. Dr. Alatorre follow. 5. Possible pneumonia - on anti-bx now. ID follows 6. History of coronary artery disease, status post coronary artery bypass graft surgery. Treated. 7. Dyslipidemia. 8. Rheumatoid arthritis 9. Groin cellulitis. 10. Anemia-worsening again today requiring transfusions PRBC's.Now post-op s/p endoscopy ? findings - H/H at 7.5 - primary followes. 11. Diabetes mellitus. 12. Sepsis LOU PATINO MD Jan 19, 2019 15:03
--- NOTE | 2019-01-19 15:34 | PN ---
Date/Time of Note Date/Time of Note DATE: 01/19/19 TIME: 15:32 Assessment/Plan VTE Prophylaxis Risk score (from [facility])>0 risk: 10 SCD applied (from [facility]): Yes Pharmacological prophylaxis: NA/contraindicated Pharm contraindication: anticoag not tolerated Lines/Catheters IV [facility] (from [facility] Mid Line Urinary Cath still in place: Yes Reason Cath still needed: urinary retention Assessment/Plan Hospital Course 1. Sepsis, WBC elevated , lactic acidosis 2. Severe anemia 3. Chronic renal failure likely secondary to sepsis 4. Hypertension. 5. Hyperlipidemia. 6. Hypothyroidism. 7. Normocytic normochromic chronic anemia with recent hemoglobin drop. 8. Bilateral groin cellulitis more likely associated with mateus, patches in groin and axilla bilaterally. Back rash 9. History of rheumatoid arthritis with joint deformities. 10. Diabetes type 2. 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 Peripheral vascular disease. 13. Chronic a.fib 14. right arm edema 15. Neoplasm per CT abdomen. 4.3 cm cystic lesion along the pancreas body, enlarged since 10/10/2012 (previously 2.4 cm). 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 16. Possible allergic skin reaction Assessment/Plan -WBC is rising -DVT proph. SCD bilaterally -GI prophylaxis Famotidine BID -pain control c/w Vancomycin -creatinine increased today -supp.. oxygen -anemia work up -ID consult, GI consult dr Frost aware -oncology consul dr Lorenzo aware:he said Ca 19-9 is negative indicating unlikely malignant. This may be a pseudocyst or a precancerous pancreatic lesion. It has been growing in size but patient is asymptomatic. EUS with biopsy is recommended and can either be done inpatient or outpatient setting. The patient at this time is unlikely a candidate for a Whipple surgery however. -hypoglycemic control -skin care Result Diagram: 01/18/19 0944 01/19/19 0419 Results 24hrs Laboratory Tests Test 01/18/19 17:35 01/18/19 18:18 01/18/19 18:22 01/18/19 21:04 Stool Occult Blood NEGATIVE Bedside Glucose 115 89 Absolute 0.097 Reticulocyte Count Percent Reticulocyte 3.5 H Count Iron Level 12 L Total Iron Binding 194 L Capacity Percent Iron 6 L Saturation Ferritin 1200.0 H Vitamin B12 Level 858 Folate > 20.0 H Test 01/19/19 04:19 01/19/19 08:06 01/19/19 08:58 01/19/19 12:47 Blood Urea Nitrogen 44 H Creatinine 1.44 H Bedside Glucose 80 104 Lactic Acid Level 1.6 Subjective 24 Hr Interval Summary Free Text/Dictation skin is itching Exam/Review of Systems Exam Vitals Vital Signs Date Temp Pulse Resp B/P (MAP) Pulse Ox O2 O2 Flow FiO2 Time Delivery Rate 01/19/19 97.0 84 20 132/59 98 Nasal 14:38 (83) Cannula 01/19/19 2.0 13:40 01/18/19 09:23 Intake and Output 01/18/19 01/18/19 01/19/19 1515:00 23:00 07:00 IntakeIntake Total 2160 ml 1430 ml OutputOutput Total 700 ml BalanceBalance 1460 ml 1430 ml Constitutional: alert, oriented Head: normocephalic Eyes: nl conjunctiva ENMT: nl external ears & nose Cardiovascular: regular rate and rhythm Gastrointestinal: soft Genitourinary - Male: other (rinaldi) Skin: other (severe redness of skin) Results Results 24hrs Laboratory Tests Test 01/18/19 17:35 01/18/19 18:18 01/18/19 18:22 01/18/19 21:04 Stool Occult Blood NEGATIVE Bedside Glucose 115 89 Absolute 0.097 Reticulocyte Count Percent Reticulocyte 3.5 H Count Iron Level 12 L Total Iron Binding 194 L Capacity Percent Iron 6 L Saturation Ferritin 1200.0 H Vitamin B12 Level 858 Folate > 20.0 H Test 01/19/19 04:19 01/19/19 08:06 01/19/19 08:58 01/19/19 12:47 Blood Urea Nitrogen 44 H Creatinine 1.44 H Bedside Glucose 80 104 Lactic Acid Level 1.6 Medications Medication Current Medications Docusate Sodium (Colace) 100 mg BID PO Last administered on 01/19/19at 08:10; Admin Dose 100 MG; Start 01/17/19 at 18:17 Senna (Senokot) 1 tab HS PO Last administered on 01/18/19at 21:10; Admin Dose 1 TAB; Start 01/17/19 at 18:17 Lactulose (Enulose) 20 gm DAILY PRN PO CONSTIPATION; Start 01/17/19 at 18:17 Acetaminophen (Tylenol Tab) 650 mg Q4H PRN PO PAIN; Start 01/17/19 at 18:17 Miscellaneous Information (Pending [facility] Order For Wound Care) This patient ramirez... PRN PRN XX WOUND CARE; Start 01/17/19 at 18:17 Diagnostic Test (Pha) (Accu-Chek) 1 ea AC MEALS AND BEDTIME XX Last administered on 01/19/19 11:10; Admin Dose 1 EA; Start 01/17/19 at 18:17 Diagnostic Test (Pha) (Accu-Chek) 1 ea 02 XX ; Start 01/17/19 at 18:17 Albuterol/ Ipratropium (Duoneb) 3 ml Q2H RESP THERAPY PRN HHN SHORTNESS OF BREATH; Start 01/17/19 at 18:17 Atorvastatin Calcium (Lipitor) 40 mg QHS PO Last administered on 01/18/19 21:10; Admin Dose 40 MG; Start 01/17/19 at 18:17 Bisacodyl (Dulcolax) 10 mg BID PRN PO CONSTIPATION; Start 01/17/19 at 18:17 Folic Acid (Folic Acid) 1 mg DAILY PO Last administered on 01/19/19 08:10; Admin Dose 1 MG; Start 01/17/19 at 18:17 Insulin Aspart (Novolog Insulin Pen) NOVOLOG *MILD* ALGORITHM WITH MEALS BEDTIME SC ; Start 01/17/19 at 18:17 Insulin Glargine (Lantus) 10 units QHS SC Last administered on 01/18/19 21:17; Admin Dose 10 UNITS; Start 01/17/19 at 18:17 Latanoprost (Xalatan) 1 drop HS BOTH EYES Last administered on 01/18/19 21:09; Admin Dose 1 DROP; Start 01/17/19 at 18:17 Levothyroxine Sodium (Synthroid) 125 mcg BEFORE BREAKFAST PO Last administered on 01/19/19 06:14; Admin Dose 125 MCG; Start 01/17/19 at 18:17 Metoprolol Tartrate (Lopressor) 50 mg BID PO Last administered on 01/19/19 08:25; Admin Dose 50 MG; Start 01/17/19 at 18:17 Nitroglycerin (Nitroglycerin (Sl Tab) 0.4 Mg) 0.4 tab Q5M PRN SL CHEST PAIN; Start 01/17/19 at 18:17 Nystatin/ Triamcinolone Acetonide (Mycolog Cr) 1 applic BID TOP Last administered on 01/19/19at 08:13; Admin Dose 1 APPLIC; Start 01/17/19 at 18:17 Nystatin (Nystatin Powder) 1 applic BID TOP Last administered on 01/19/19at 08:14; Admin Dose 1 APPLIC; Start 01/17/19 at 18:17 Pantoprazole (Protonix Tab) 40 mg DAILY@06 PO Last administered on 01/19/19at 06:14; Admin Dose 40 MG; Start 01/17/19 at 18:17 Polyethylene Glycol (Miralax) 17 gm DAILY PO Last administered on 01/19/19at 08:11; Admin Dose 17 GM; Start 01/17/19 at 18:17 Pregabalin (Lyrica) 25 mg TID PO Last administered on 01/19/19at 13:11; Admin D ose 25 MG; Start 01/17/19 at 18:17 IV Flush (NS 3 ml) 3 ml PER PROTOCOL IV ; Start 01/17/19 at 18:17 Terazosin HCl (Hytrin) 10 mg HS PO Last administered on 01/18/19at 21:10; Admin Dose 10 MG; Start 01/17/19 at 18:17 Miscellaneous Information 1 ea NOTE XX ; Start 01/17/19 at 18:17 Glucose (Glutose) 15 gm Q15M PRN PO DECREASED GLUCOSE; Start 01/17/19 at 18:17 Glucose (Glutose) 22.5 gm Q15M PRN PO DECREASED GLUCOSE; Start 01/17/19 at 18:17 Dextrose (D50w Syringe) 25 ml Q15M PRN IV DECREASED GLUCOSE; Start 01/17/19 at 18:17 Dextrose (D50w Syringe) 50 ml Q15M PRN IV DECREASED GLUCOSE; Start 01/17/19 at 18:17 Glucagon (Glucagen) 1 mg Q15M PRN IM DECREASED GLUCOSE; Start 01/17/19 at 18:17 Glucose (Glutose) 15 gm Q15M PRN BUCCAL DECREASED GLUCOSE; Start 01/17/19 at 18:17 Multivitamins Therapeutic (Theragran) 1 tab DAILY PO Last administered on 01/19/19 08:28; Admin Dose 1 TAB; Start 01/17/19 at 18:17 Zinc Sulfate (Zinc Sulfate) 220 mg DAILY PO Last administered on 01/19/19 08:24; Admin Dose 220 MG; Start 01/17/19 at 18:17 Ascorbic Acid (Vitamin C) 250 mg DAILY PO Last administered on 01/19/19 08:11; Admin Dose 250 MG; Start 01/17/19 at 18:17 Albuterol/ Ipratropium (Duoneb) 3 ml Q6H RESP THERAPY HHN Last administered on 01/19/19 13:40; Admin Dose 3 ML; Start 01/17/19 at 18:17 Multi-Ingredient Ointment (Aquaphor Oint 52.5 Gm) 1 applic BID TOP Last administered on 01/19/19 08:17; Admin Dose 1 APPLIC; Start 01/17/19 at 18:17 Aspirin (Aspirin) 81 mg DAILY PO Last administered on 01/19/19 08:11; Admin Dose 81 MG; Start 01/17/19 at 18:17 Ferrous Sulfate (Ferrous Sulfate (Ec)) 325 mg WITH MEALS PO Last administered on 01/19/19 12:46; Admin Dose 325 MG; Start 01/17/19 at 18:17 Bisacodyl (Dulcolax Supp) 10 mg DAILY PRN [place] CONSTIPATION; Start 01/17/19 at 18:17 Acetaminophen/ Hydrocodone Bitart ([place] (5/325)) 2 tab Q4H PRN PO SEVERE PAIN LEVEL 7-10 Last administered on 01/18/19 06:19; Admin Dose 2 TAB; Start 01/17/19 at 18:17 Caspofungin 50 mg/ Sodium Chloride 250 ml @ 250 mls/hr Q24H IVPB Last administered on 01/18/19 18:15; Admin Dose 250 MLS/HR; Start 01/17/19 at 18:17 Ertapenem 1 gm/ Sodium Chloride 100 ml @ 200 mls/hr Q24H IVPB Last administered on 01/18/19 23:12; Admin Dose 200 MLS/HR; Start 01/17/19 at 23:30 Linezolid (Zyvox) 600 mg BID PO Last administered on 01/18/19 21:10; Admin Dose 600 MG; Start 01/17/19 at 21:00; Status Hold Cyanocobalamin (Vitamin B12 Inj) 1,000 mcg Q7D IM Last administered on 01/18/19at 13:58; Admin Dose 1,000 MCG; Start 01/18/19 at 13:00 Furosemide (Lasix) 20 mg BID DIURETICS IV Last administered on 01/19/19at 06:14; Admin Dose 20 MG; Start 01/18/19 at 18:00; Stop 02/02/19 at 17:59 Oxycodone HCl (Roxicodone) 10 mg Q4H PRN PO MODERATE PAIN LEVEL 4-6 Last administered on 01/19/19at 03:18; Admin Dose 10 MG; Start 01/18/19 at 15:30 Vancomycin HCl (Vanco Iv Per Pharmacy) VANCOMYCIN PER PHARMACY PER PROTOCOL XX ; Start 01/18/19 at 20:30 Vancomycin HCl 250 ml @ 125 mls/hr Q24H IVPB ; Start 01/20/19 at 00:00 COOPER CAOR Jan 19, 2019 15:34
[2019-01-19] MEDS ORDERED: DIPHENHYDRAMINE 2%/ZINC 28.4 GM CR TOP PRN (16:30)
[2019-01-19] MEDS ORDERED: DIPHENHYDRAMINE 50 MG INJ IV PRN (16:30)
[2019-01-19 20:43] VITALS: BP 122/58; PULSE 109; RESP 18
[2019-01-19] MEDS: CASPOFUNGIN 50 MG in SOD CHLORIDE 0.9% 250 ML IVPB SCH (21:32)
[2019-01-19] MEDS: ATORVASTATIN 40 MG TAB PO SCH (21:32)
[2019-01-19] MEDS: TERAZOSIN 5 MG CAP PO SCH (21:33)
[2019-01-19] MEDS: SENNA TAB PO SCH (21:34)
[2019-01-19] MEDS: INSULIN GLARGINE [LANTus] (100 UNITS/ML) SYG SC SCH (21:40)
[2019-01-19] MEDS: LATANOPROST 0.005% 2.5 ML OPH BOTH EYES SCH (21:43)
[2019-01-19] MEDS: ERTAPENEM SODIUM 1 GM in SOD CHLORIDE 0.9% 100 ML IVPB SCH (23:13)
[2019-01-19] MEDS: VANCOMYCIN 1 GM 250 ML IVPB SCH (23:53)
[2019-01-20] VITALS (7 sets, daily range): BP systolic 105–140; BP diastolic 51–108; PULSE 62–92; RESP 18–19
[2019-01-20] MEDS: ALBUTEROL/IPRATROPIUM (NEB) 3 ML AMP HHN SCH ×4 (01:53→20:47)
[2019-01-20] MEDS: ACCU-CHEK XX SCH ×5 (02:00→21:28)
[2019-01-20] MEDS: FUROSEMIDE 20 MG INJ IV SCH (05:52)
[2019-01-20] MEDS: LEVOTHYROXINE 125 MCG TAB PO SCH (05:52)
[2019-01-20] MEDS: PANTOPRAZOLE (EC) 40 MG TAB PO SCH (05:52)
[2019-01-20] MEDS: DEXTROSE 5% 1,000 ML IV SCH ×2 (06:32→16:27)
[2019-01-20] MEDS ORDERED: LIDOCAINE 1% (MPF) 5 ML VIAL SC ONE ×2 (07:30→08:30)
[2019-01-20] MEDS: INSULIN ASPART [NOVOLOG] 3 ML PEN SC SCH ×4 (07:50→21:00)
--- NOTE | 2019-01-20 07:59 | CONS ---
Assessment/Plan Assessment/Plan Hospital Course (Demo Recall) 88 yo male presents from [facility] for SOB and febrile Interval hx: Pt is sleepy but wakes to name and converses. WBC jumped up to 29.4 BM qd, brown. Tolerating PO diet. No c/o abd pain or nausea. Blood sugars have been low. 1. Severe anemia likely due to chronic disease, last work up while admitted to [facility] about a week ago was neg for GI bleeding, including EGD/colon which was done -s/p EGD and colonoscopy by Dr Frost 01/09/19 which didn't find an obvious GI etiology to explain anemia. AVM or a small lesion could be missed due to poor prep. Pt likely needs capsule endoscopy -Neg fob, elevate retic, Low iron, tibc, [place] [id number] 2. Cystic lesion along pancreas body - 4.3 cm cystic lesion along the pancreas body, enlarged since 10/10/2012 (previously 2.4 cm). 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 -CEA wnl 3. Severe gastritis 4. Hemorrhoids 5. Hital hernia 6. A fib, -eliquis was stopped 01/06 during previous admission, on ASA 7. COPD 8. HTN 9. Hypothyroidism 10. Bilateral groin cellulitis 11. Rheumatoid arthritis. 12. Diabetes mellitus. 13. Peripheral vascular disease. 14. CHF 15. 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 Leukocytosis up to 29, urine cx was unremarkable CT Abd 01/15/19 IMPRESSION: 1. No intra-abdominal inflammation or lymphadenopathy. 2. 4.3 cm cystic lesion along the pancreas body, enlarged since 10/10/2012 (previously 2.4 cm). 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 If clinically warranted, this could be further evaluated with contrast-enhanced MRI. 3. No obstructive uropathy or urinary stone. 4. Enlarged prostate gland. Correlation with PSA level is recommended. 5. Moderate atherosclerotic arterial calcifications. 6. Diffuse subcutaneous edema. 7. Status post posterior decompression and fusion at L5-S1. A malpositioned pedicle screw and impinges on the left L4-5 neural foramen, unchanged. 8. Grade 2 degenerative L4 anterolisthesis and grade 1 degenerative L5 anterolisthesis. Plan Recommend carranza cx Anemia work up noted, heme onc following Pt will need outpatient EUS to evaluate pancreatic mass Recommend capsule endoscopy as outpatient GI prophylaxis: protonix QD Continue Iron, consider IV iron since pt iron, tibc still low Pain management Pt examined and plan of care discussed with Dr. Frost Consultation Date/Type/Reason Admit Date/Time Jan 17, 2019 at 15:58 Initial Consult Date 01/18/19 Date/Time of Note DATE: 01/20/19 TIME: 07:53 Exam/Review of Systems Exam Vitals Vital Signs Date Temp Pulse Resp B/P (MAP) Pulse Ox O2 O2 Flow FiO2 Time Delivery Rate 01/20/19 75 16 98 Nasal 2.0 07:43 Cannula 01/20/19 98.2 105/52 01:40 (69) 01/18/19 21 09:23 Intake and Output 01/19/19 01/19/19 01/20/19 1515:00 23:00 07:00 IntakeIntake Total 600 ml 370 ml 750 ml OutputOutput Total 501 ml 600 ml BalanceBalance 600 ml -131 ml 150 ml Constitutional: alert, oriented Psych: no complaints Head: normocephalic Eyes: nl sclera, PERRL Respiratory: wheezing Cardiovascular: regular rate and rhythm Gastrointestinal: soft, non-tender Extremities: edema Neurological: nl mental status, lethargic Results Result Diagram: 01/20/19 0424 01/20/19 0424 Results 24hrs Laboratory Tests Test 01/19/19 08:06 01/19/19 08:58 01/19/19 12:47 01/19/19 18:19 Bedside Glucose 80 104 141 Lactic Acid Level 1.6 Test 01/19/19 21:27 01/20/19 04:24 01/20/19 06:13 01/20/19 06:35 Bedside Glucose 117 54 L 67 L White Blood Count 24.9 #H Red Blood Count 2.49 L Hemoglobin 7.3 L Hematocrit 23.0 L Mean Corpuscular 92.4 Volume Mean Corpuscular 29.3 Hemoglobin Mean Corpuscular 31.7 L Hemoglobin Concent Red Cell 17.2 H Distribution Width Platelet Count 259 Mean Platelet Volume 10.3 Immature 1.100 H Granulocytes % Neutrophils % 86.8 H Lymphocytes % 6.3 L Monocytes % 5.6 Eosinophils % 0.0 Basophils % 0.2 Nucleated Red Blood 0.0 Cells % Immature 0.270 H Granulocytes # Neutrophils # 21.6 H Lymphocytes # 1.6 Monocytes # 1.4 H Eosinophils # 0.0 Basophils # 0.1 Nucleated Red Blood 0.0 Cells # Sodium Level 134 L Potassium Level 4.4 Chloride Level 102 Carbon Dioxide Level 24 Anion Gap 8 Blood Urea Nitrogen 49 H Creatinine 1.58 H Est Glomerular Filtrat Rate mL/min Glucose Level 41 #*L Calcium Level 8.1 L Medications Medication Current Medications Docusate Sodium (Colace) 100 mg BID PO Last administered on 01/19/19 21:32; Admin Dose 100 MG; Start 01/17/19 at 18:17 Senna (Senokot) 1 tab HS PO Last administered on 01/19/19 21:34; Admin Dose 1 TAB; Start 01/17/19 at 18:17 Lactulose (Enulose) 20 gm DAILY PRN PO CONSTIPATION; Start 01/17/19 at 18:17 Acetaminophen (Tylenol Tab) 650 mg Q4H PRN PO PAIN; Start 01/17/19 at 18:17 Miscellaneous Information (Pending [facility] Order For Wound Care) This patient ramirez... PRN PRN XX WOUND CARE; Start 01/17/19 at 18:17 Diagnostic Test (Pha) (Accu-Chek) 1 ea AC MEALS AND BEDTIME XX Last administered on 01/19/19 21:34; Admin Dose 1 EA; Start 01/17/19 at 18:17 Diagnostic Test (Pha) (Accu-Chek) 1 ea 02 XX ; Start 01/17/19 at 18:17 Albuterol/ Ipratropium (Duoneb) 3 ml Q2H RESP THERAPY PRN HHN SHORTNESS OF BREATH; Start 01/17/19 at 18:17 Atorvastatin Calcium (Lipitor) 40 mg QHS PO Last administered on 01/19/19 21:32; Admin Dose 40 MG; Start 01/17/19 at 18:17 Bisacodyl (Dulcolax) 10 mg BID PRN PO CONSTIPATION; Start 01/17/19 at 18:17 Folic Acid (Folic Acid) 1 mg DAILY PO Last administered on 01/19/19 08:10; Admin Dose 1 MG; Start 01/17/19 at 18:17 Insulin Aspart (Novolog Insulin Pen) NOVOLOG *MILD* ALGORITHM WITH MEALS BEDTIME SC Last administered on 01/19/19 18:23; Admin Dose 1 UNIT; Start 01/17/19 at 18:17 Insulin Glargine (Lantus) 10 units QHS SC Last administered on 01/19/19 21:40; Admin Dose 10 UNITS; Start 01/17/19 at 18:17 Latanoprost (Xalatan) 1 drop HS BOTH EYES Last administered on 01/19/19 21:43; Admin Dose 1 DROP; Start 01/17/19 at 18:17 Levothyroxine Sodium (Synthroid) 125 mcg BEFORE BREAKFAST PO Last administered on 01/20/19 05:52; Admin Dose 125 MCG; Start 01/17/19 at 18:17 Metoprolol Tartrate (Lopressor) 50 mg BID PO Last administered on 01/19/19 21:33; Admin Dose 50 MG; Start 01/17/19 at 18:17 Nitroglycerin (Nitroglycerin (Sl Tab) 0.4 Mg) 0.4 tab Q5M PRN SL CHEST PAIN; Start 01/17/19 at 18:17 Nystatin (Nystatin Powder) 1 applic BID TOP Last administered on 01/19/19 21:34; Admin Dose 1 APPLIC; Start 01/17/19 at 18:17 Pantoprazole (Protonix Tab) 40 mg DAILY@06 PO Last administered on 01/20/19 05:52; Admin Dose 40 MG; Start 01/17/19 at 18:17 Polyethylene Glycol (Miralax) 17 gm DAILY PO Last administered on 01/19/19 08:11; Admin Dose 17 GM; Start 01/17/19 at 18:17 Pregabalin (Lyrica) 25 mg TID PO Last administered on 01/19/19 21:37; Admin Dose 25 MG; Start 01/17/19 at 18:17 IV Flush (NS 3 ml) 3 ml PER PROTOCOL IV ; Start 01/17/19 at 18:17 Terazosin HCl (Hytrin) 10 mg HS PO Last administered on 01/19/19 21:33; Admin Dose 10 MG; Start 01/17/19 at 18:17 Miscellaneous Information 1 ea NOTE XX ; Start 01/17/19 at 18:17 Glucose (Glutose) 15 gm Q15M PRN PO DECREASED GLUCOSE; Start 01/17/19 at 18:17 Glucose (Glutose) 22.5 gm Q15M PRN PO DECREASED GLUCOSE; Start 01/17/19 at 18:17 Dextrose (D50w Syringe) 25 ml Q15M PRN IV DECREASED GLUCOSE; Start 01/17/19 at 18:17 Dextrose (D50w Syringe) 50 ml Q15M PRN IV DECREASED GLUCOSE; Start 01/17/19 at 18:17 Glucagon (Glucagen) 1 mg Q15M PRN IM DECREASED GLUCOSE; Start 01/17/19 at 18:17 Glucose (Glutose) 15 gm Q15M PRN BUCCAL DECREASED GLUCOSE; Start 01/17/19 at 18:17 Multivitamins Therapeutic (Theragran) 1 tab DAILY PO Last administered on 01/19/19 08:28; Admin Dose 1 TAB; Start 01/17/19 at 18:17 Zinc Sulfate (Zinc Sulfate) 220 mg DAILY PO Last administered on 01/19/19 08:24; Admin Dose 220 MG; Start 01/17/19 at 18:17 Ascorbic Acid (Vitamin C) 250 mg DAILY PO Last administered on 01/19/19 08:11; Admin Dose 250 MG; Start 01/17/19 at 18:17 Albuterol/ Ipratropium (Duoneb) 3 ml Q6H RESP THERAPY HHN Last administered on 01/20/19 07:42; Admin Dose 3 ML; Start 01/17/19 at 18:17 Multi-Ingredient Ointment (Aquaphor Oint 52.5 Gm) 1 applic BID TOP Last administered on 01/19/19 08:17; Admin Dose 1 APPLIC; Start 01/17/19 at 18:17 Aspirin (Aspirin) 81 mg DAILY PO Last administered on 01/19/19 08:11; Admin Dose 81 MG; Start 01/17/19 at 18:17 Ferrous Sulfate (Ferrous Sulfate (Ec)) 325 mg WITH MEALS PO Last administered on 01/19/19 18:25; Admin Dose 325 MG; Start 01/17/19 at 18:17 Bisacodyl (Dulcolax Supp) 10 mg DAILY PRN [place] CONSTIPATION; Start 01/17/19 at 18:17 Acetaminophen/ Hydrocodone Bitart ([place] (5/325)) 2 tab Q4H PRN PO SEVERE PAIN LEVEL 7-10 Last administered on 01/18/19 06:19; Admin Dose 2 TAB; Start 01/17/19 at 18:17 Caspofungin 50 mg/ Sodium Chloride 250 ml @ 250 mls/hr Q24H IVPB Last administered on 01/19/19at 21:32; Admin Dose 250 MLS/HR; Start 01/17/19 at 18:17 Ertapenem 1 gm/ Sodium Chloride 100 ml @ 200 mls/hr Q24H IVPB Last administered on 01/19/19at 23:13; Admin Dose 200 MLS/HR; Start 01/17/19 at 23:30 Linezolid (Zyvox) 600 mg BID PO Last administered on 01/18/19at 21:10; Admin Dose 600 MG; Start 01/17/19 at 21:00; Status Hold Cyanocobalamin (Vitamin B12 Inj) 1,000 mcg Q7D IM Last administered on 01/18/19at 13:58; Admin Dose 1,000 MCG; Start 01/18/19 at 13:00 Furosemide (Lasix) 20 mg BID DIURETICS IV Last administered on 01/20/19at 05:52; Admin Dose 20 MG; Start 01/18/19 at 18:00; Stop 02/02/19 at 17:59 Oxycodone HCl (Roxicodone) 10 mg Q4H PRN PO MODERATE PAIN LEVEL 4-6 Last administered on 01/19/19at 16:36; Admin Dose 10 MG; Start 01/18/19 at 15:30 Vancomycin HCl (Vanco Iv Per Pharmacy) VANCOMYCIN PER PHARMACY PER PROTOCOL XX ; Start 01/18/19 at 20:30 Vancomycin HCl 250 ml @ 125 mls/hr Q24H IVPB Last administered on 01/19/19at 23:53; Admin Dose 125 MLS/HR; Start 01/20/19 at 00:00 Diphenhydramine HCl (Benadryl) 25 mg Q6H PRN IV ITCHING; Start 01/19/19 at 16:30 Zinc Acetate/ Diphenhydramine (Benadryl 2% Cr) 1 applic Q6H PRN TOP ITCHING; Start 01/19/19 at 16:37 Nystatin/ Triamcinolone Acetonide (Mycolog Cr) 1 applic BID TOP ; Start 01/19/19 at 22:41 Dextrose 1,000 ml @ 40 mls/hr Q24H IV Last administered on 01/20/19at 06:32; Admin Dose 40 MLS/HR; Start 01/20/19 at 06:30 GISELLA VENTURA Jan 20, 2019 07:59
[2019-01-20] MEDS: NYSTATIN/TRIAMCINOLONE 15 GM CR TOP SCH ×2 (08:42→21:35)
[2019-01-20] MEDS: NYSTATIN 30 GM POWDER BTL TOP SCH ×2 (08:42→21:28)
[2019-01-20] MEDS: BALSAM PERU/CASTOR OIL 60 GM TUBE TOP SCH ×2 (08:42→21:28)
[2019-01-20] MEDS: POLYETHYLENE GLYCOL 17 GM PACKET PO SCH (09:00)
[2019-01-20] MEDS: AQUAPHOR 52.5 GM OINT TOP SCH ×2 (09:00→21:28)
[2019-01-20] MEDS: ZINC SULFATE 220 MG CAP PO SCH (09:04)
[2019-01-20] MEDS: ASCORBIC ACID 250 MG TAB PO SCH (09:04)
[2019-01-20] MEDS: ASPIRIN 81 MG TAB PO SCH (09:04)
[2019-01-20] MEDS: DOCUSATE SODIUM 100 MG CAP PO SCH ×2 (09:04→21:01)
[2019-01-20] MEDS: FOLIC ACID 1 MG TAB PO SCH (09:05)
[2019-01-20] MEDS: MULTIVITAMINS THERAPEUTIC TAB PO SCH (09:05)
[2019-01-20] MEDS: FERROUS SULFATE (EC) 325 MG TAB PO SCH ×3 (09:05→17:16)
[2019-01-20] MEDS: METOPROLOL 50 MG TAB PO SCH ×2 (09:05→21:27)
[2019-01-20] MEDS: PREGABALIN 25 MG CAP PO SCH (09:09)
--- NOTE | 2019-01-20 11:22 | CONS ---
Assessment/Plan Assessment/Plan Hospital Course (Demo Recall) 88 yo male with multiple medical problems including DM, CRF, RA, PVD and chronic afib on Eliquis who presented to [facility] 01/05/19 with severe normocytic anemia and Hg ~7. 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 # Anemia-normocytic -Multifactorial at this time due to iron deficiency, vitamin b12 deficiency and also likely anemia of chronic kidney disease and inflammation. Elevated Methylmalonic acid level noted -Patient still has low iron level even though ferritin is elevated. Ferritin likely elevated due to acute phase reactant. -Instead po iron may need IV iron as patient has severe atrophic gastritis which may be causing absorption issues. -continue vitamin b12 weekly as vitamin b12 was low normal and methylmalonic acid was elevated. Continue folate as well. -No evidence of hemolysis at this time. -Transfuse to keep Hgb > 7. -will start procrit 26176 units weekly at this time # Pancreatic cystic mass -Ca 19-9 is negative indicating unlikely malignant. -This may be a pseudocyst or a precancerous pancreatic lesion. -It has been growing in size but patient is asymptomatic. EUS with biopsy is recommended and can either be done inpatient or oupatient setting. -The patient at this time is unlikely a candidate for a whipple surgery however. Thank you to Dr. Alatorre for allowing [facility] to participate in the care of this patient. A total of 40 minutes was spent in consultation with this patient and all his questions were answered. Consultation Date/Type/Reason Admit Date/Time Jan 17, 2019 at 15:58 Initial Consult Date 01/18/19 Type of Consult hematology Reason for Consultation anemia Requesting Provider: IVAN AKHTAR MD Date/Time of Note DATE: 01/20/19 TIME: 11:19 24 HR Interval Summary Free Text/Dictation no acute eyebright events. no bleeding Exam/Review of Systems Exam Vitals Vital Signs Date Temp Pulse Resp B/P (MAP) Pulse Ox O2 O2 Flow FiO2 Time Delivery Rate 01/20/19 98.0 77 18 110/51 100 07:50 (70) 01/20/19 Nasal 2.0 07:43 Cannula 01/18/19 21 09:23 Intake and Output 01/19/19 01/19/19 01/20/19 1515:00 23:00 07:00 IntakeIntake Total 600 ml 370 ml 750 ml OutputOutput Total 501 ml 600 ml BalanceBalance 600 ml -131 ml 150 ml Constitutional: alert, oriented, frail Psych: depression Head: normocephalic Eyes: nl conjunctiva ENMT: nl external ears & nose Neck: supple Respiratory: clear to auscultation Cardiovascular: regular rate and rhythm Gastrointestinal: soft Results Result Diagram: 01/20/19 0424 01/20/19 0424 Results 24hrs Laboratory Tests Test 01/19/19 12:47 01/19/19 18:19 01/19/19 21:27 01/20/19 04:24 Bedside Glucose 104 141 117 White Blood Count 24.9 #H Red Blood Count 2.49 L Hemoglobin 7.3 L Hematocrit 23.0 L Mean Corpuscular 92.4 Volume Mean Corpuscular 29.3 Hemoglobin Mean Corpuscular 31.7 L Hemoglobin Concent Red Cell 17.2 H Distribution Width Platelet Count 259 Mean Platelet Volume 10.3 Immature 1.100 H Granulocytes % Neutrophils % 86.8 H Lymphocytes % 6.3 L Monocytes % 5.6 Eosinophils % 0.0 Basophils % 0.2 Nucleated Red Blood 0.0 Cells % Immature 0.270 H Granulocytes # Neutrophils # 21.6 H Lymphocytes # 1.6 Monocytes # 1.4 H Eosinophils # 0.0 Basophils # 0.1 Nucleated Red Blood 0.0 Cells # Sodium Level 134 L Potassium Level 4.4 Chloride Level 102 Carbon Dioxide Level 24 Anion Gap 8 Blood Urea Nitrogen 49 H Creatinine 1.58 H Est Glomerular Filtrat Rate mL/min Glucose Level 41 #*L Calcium Level 8.1 L Test 01/20/19 06:13 01/20/19 06:35 01/20/19 08:39 Bedside Glucose 54 L 67 L 97 Medications Medication Current Medications Docusate Sodium (Colace) 100 mg BID PO Last administered on 01/20/19at 09:04; Admin Dose 100 MG; Start 01/17/19 at 18:17 Senna (Senokot) 1 tab HS PO Last administered on 01/19/19at 21:34; Admin Dose 1 TAB; Start 01/17/19 at 18:17 Lactulose (Enulose) 20 gm DAILY PRN PO CONSTIPATION; Start 01/17/19 at 18:17 Acetaminophen (Tylenol Tab) 650 mg Q4H PRN PO PAIN; Start 01/17/19 at 18:17 Miscellaneous Information (Pending [facility] Order For Wound Care) This patient ramirez... PRN PRN XX WOUND CARE; Start 01/17/19 at 18:17 Diagnostic Test (Pha) (Accu-Chek) 1 ea AC MEALS AND BEDTIME XX Last adminis tered on 01/20/19 07:20; Admin Dose 1 EA; Start 01/17/19 at 18:17 Diagnostic Test (Pha) (Accu-Chek) 1 ea 02 XX ; Start 01/17/19 at 18:17 Albuterol/ Ipratropium (Duoneb) 3 ml Q2H RESP THERAPY PRN HHN SHORTNESS OF BREATH; Start 01/17/19 at 18:17 Atorvastatin Calcium (Lipitor) 40 mg QHS PO Last administered on 01/19/19 21:32; Admin Dose 40 MG; Start 01/17/19 at 18:17 Bisacodyl (Dulcolax) 10 mg BID PRN PO CONSTIPATION; Start 01/17/19 at 18:17 Folic Acid (Folic Acid) 1 mg DAILY PO Last administered on 01/20/19 09:05; Admin Dose 1 MG; Start 01/17/19 at 18:17 Insulin Aspart (Novolog Insulin Pen) NOVOLOG *MILD* ALGORITHM WITH MEALS BEDTIME SC Last administered on 01/19/19 18:23; Admin Dose 1 UNIT; Start 01/17/19 at 18:17 Insulin Glargine (Lantus) 10 units QHS SC Last administered on 01/19/19 21:40; Admin Dose 10 UNITS; Start 01/17/19 at 18:17 Latanoprost (Xalatan) 1 drop HS BOTH EYES Last administered on 01/19/19 21:43; Admin Dose 1 DROP; Start 01/17/19 at 18:17 Levothyroxine Sodium (Synthroid) 125 mcg BEFORE BREAKFAST PO Last administered on 01/20/19 05:52; Admin Dose 125 MCG; Start 01/17/19 at 18:17 Metoprolol Tartrate (Lopressor) 50 mg BID PO Last administered on 01/20/19 09:05; Admin Dose 50 MG; Start 01/17/19 at 18:17 Nitroglycerin (Nitroglycerin (Sl Tab) 0.4 Mg) 0.4 tab Q5M PRN SL CHEST PAIN; Start 01/17/19 at 18:17 Nystatin (Nystatin Powder) 1 applic BID TOP Last administered on 01/20/19at 08:42; Admin Dose 1 APPLIC; Start 01/17/19 at 18:17 Pantoprazole (Protonix Tab) 40 mg DAILY@06 PO Last administered on 01/20/19 05:52; Admin Dose 40 MG; Start 01/17/19 at 18:17 Polyethylene Glycol (Miralax) 17 gm DAILY PO Last administered on 01/19/19 08:11; Admin Dose 17 GM; Start 01/17/19 at 18:17 Pregabalin (Lyrica) 25 mg TID PO Last administered on 01/20/19 09:09; Admin Dose 25 MG; Start 01/17/19 at 18:17 IV Flush (NS 3 ml) 3 ml PER PROTOCOL IV ; Start 01/17/19 at 18:17 Terazosin HCl (Hytrin) 10 mg HS PO Last administered on 01/19/19at 21:33; Admin Dose 10 MG; Start 01/17/19 at 18:17 Miscellaneous Information 1 ea NOTE XX ; Start 01/17/19 at 18:17 Glucose (Glutose) 15 gm Q15M PRN PO DECREASED GLUCOSE; Start 01/17/19 at 18:17 Glucose (Glutose) 22.5 gm Q15M PRN PO DECREASED GLUCOSE; Start 01/17/19 at 18:17 Dextrose (D50w Syringe) 25 ml Q15M PRN IV DECREASED GLUCOSE; Start 01/17/19 at 18:17 Dextrose (D50w Syringe) 50 ml Q15M PRN IV DECREASED GLUCOSE; Start 01/17/19 at 18:17 Glucagon (Glucagen) 1 mg Q15M PRN IM DECREASED GLUCOSE; Start 01/17/19 at 18:17 Glucose (Glutose) 15 gm Q15M PRN BUCCAL DECREASED GLUCOSE; Start 01/17/19 at 18:17 Multivitamins Therapeutic (Theragran) 1 tab DAILY PO Last administered on 01/20/19 09:05; Admin Dose 1 TAB; Start 01/17/19 at 18:17 Zinc Sulfate (Zinc Sulfate) 220 mg DAILY PO Last administered on 01/20/19 09:04; Admin Dose 220 MG; Start 01/17/19 at 18:17 Ascorbic Acid (Vitamin C) 250 mg DAILY PO Last administered on 01/20/19 09:04; Admin Dose 250 MG; Start 01/17/19 at 18:17 Albuterol/ Ipratropium (Duoneb) 3 ml Q6H RESP THERAPY HHN Last administered on 01/20/19 07:42; Admin Dose 3 ML; Start 01/17/19 at 18:17 Multi-Ingredient Ointment (Aquaphor Oint 52.5 Gm) 1 applic BID TOP Last adminis tered on 01/19/19 08:17; Admin Dose 1 APPLIC; Start 01/17/19 at 18:17 Aspirin (Aspirin) 81 mg DAILY PO Last administered on 01/20/19 09:04; Admin Dose 81 MG; Start 01/17/19 at 18:17 Ferrous Sulfate (Ferrous Sulfate (Ec)) 325 mg WITH MEALS PO Last administered on 01/20/19 09:05; Admin Dose 325 MG; Start 01/17/19 at 18:17 Bisacodyl (Dulcolax Supp) 10 mg DAILY PRN [place] CONSTIPATION; Start 01/17/19 at 18:17 Acetaminophen/ Hydrocodone Bitart ([place] (5/325)) 2 tab Q4H PRN PO SEVERE PAIN LEVEL 7-10 Last administered on 01/18/19 06:19; Admin Dose 2 TAB; Start 01/17/19 at 18:17 Caspofungin 50 mg/ Sodium Chloride 250 ml @ 250 mls/hr Q24H IVPB Last administered on 01/19/19 21:32; Admin Dose 250 MLS/HR; Start 01/17/19 at 18:17 Ertapenem 1 gm/ Sodium Chloride 100 ml @ 200 mls/hr Q24H IVPB Last administered on 01/19/19 23:13; Admin Dose 200 MLS/HR; Start 01/17/19 at 23:30 Linezolid (Zyvox) 600 mg BID PO Last administered on 01/18/19 21:10; Admin Dose 600 MG; Start 01/17/19 at 21:00; Status Hold Cyanocobalamin (Vitamin B12 Inj) 1,000 mcg Q7D IM Last administered on 01/18/19 13:58; Admin Dose 1,000 MCG; Start 01/18/19 at 13:00 Furosemide (Lasix) 20 mg BID DIURETICS IV Last administered on 01/20/19at 05:52; Admin Dose 20 MG; Start 01/18/19 at 18:00; Stop 02/02/19 at 17:59 Oxycodone HCl (Roxicodone) 10 mg Q4H PRN PO MODERATE PAIN LEVEL 4-6 Last administered on 01/19/19at 16:36; Admin Dose 10 MG; Start 01/18/19 at 15:30 Vancomycin HCl (Vanco Iv Per Pharmacy) VANCOMYCIN PER PHARMACY PER PROTOCOL XX ; Start 01/18/19 at 20:30 Vancomycin HCl 250 ml @ 125 mls/hr Q24H IVPB Last administered on 01/19/19at 23:53; Admin Dose 125 MLS/HR; Start 01/20/19 at 00:00 Diphenhydramine HCl (Benadryl) 25 mg Q6H PRN IV ITCHING; Start 01/19/19 at 16:30 Zinc Acetate/ Diphenhydramine (Benadryl 2% Cr) 1 applic Q6H PRN TOP ITCHING; Start 01/19/19 at 16:37 Nystatin/ Triamcinolone Acetonide (Mycolog Cr) 1 applic BID TOP Last administered on 01/20/19at 08:42; Admin Dose 1 APPLIC; Start 01/19/19 at 22:41 Dextrose 1,000 ml @ 40 mls/hr Q24H IV Last administered on 01/20/19at 06:32; Admin Dose 40 MLS/HR; Start 01/20/19 at 06:30 Epoetin Dae-epbx (RETACRIT(non-esrd)) 20,000 unit Mo@1700 SC ; Start 01/20/19 at 17:00 OREN MARSH M.D. Jan 20, 2019 11:22
--- NOTE | 2019-01-20 12:39 | CONS ---
Assessment/Plan Assessment/Plan Hospital Course (Demo Recall) IMPRESSION: 1. Atrial fibrillation, currently rate controlled.-off systemic anticoagulation due to anemia. ON asa only due to anemia 2. Possible congestive heart failure by chest x-ray, which will be diastolic, acute on chronic by most recent echo with an EF of 60%. 3. Tricuspid regurgitation, moderate by most recent echo. 4. Acute on chronic renal failure-mild worsening 5. Possible pneumonia. 6. History of coronary artery disease, status post coronary artery bypass graft surgery. 7. Dyslipidemia. 8. Rheumatoid arthritis. 9. Groin cellulitis. 10. Anemia-worsening again today requiring transfusions PRBC's.Now post-op s/p endoscopy ? findings 11. Diabetes mellitus. 12. Sepsis Recc: -Transferred to med-surg due to increasing WBC/worsening anemia and limited ability to participate in PT -serial ecg's -Continue BB as tolerated only -Babt asa as tolerated only -Contineu lasix but will decrease to daily given worsening renal failure -Continue statin -Continue abx's/antifungals and f/u cx data Consultation Date/Type/Reason Admit Date/Time Jan 17, 2019 at 15:58 Initial Consult Date 01/18/19 Type of Consult Cardiology Reason for Consultation CHF Requesting Provider: IVAN AKHTAR MD Date/Time of Note DATE: 01/20/19 TIME: 12:35 Exam/Review of Systems Vital Signs Vitals Vital Signs Date Temp Pulse Resp B/P (MAP) Pulse Ox O2 O2 Flow FiO2 Time Delivery Rate 01/20/19 98.0 77 18 110/51 100 07:50 (70) 01/20/19 Nasal 2.0 07:43 Cannula 01/18/19 21 09:23 Intake and Output 01/19/19 01/19/19 01/20/19 1515:00 23:00 07:00 IntakeIntake Total 600 ml 370 ml 750 ml OutputOutput Total 501 ml 600 ml BalanceBalance 600 ml -131 ml 150 ml Exam Exam Review of Systems: CONSTITUTIONAL: No fevers, chills. PULMONARY: No sob CARDIOVASCULAR: No chest pain/palpitations GASTROINTESTINAL: No nausea/vomiting. GENITOURINARY: No hematuria/dysuria. MUSCULOSKELETAL: No myagias/arthalgias. PSYCHIATRIC: The patient denies depression. NEUROLOGIC: somewhat lethargic Constitutional: alert Psych: no complaints Head: normocephalic ENMT: mucosa pink and moist Neck: supple, jvd (9 cm water) Respiratory: diminished breath sounds (at bases/B) Cardiovascular: irregular rhythm Gastrointestinal: soft, non-tender Musculoskeletal: muscle weakness (mild generalized) Extremities: edema (none) Neurological: other (mild generalized weakness) Labs Result Diagram: 01/20/19 0424 01/20/19 0424 Results 24hrs Laboratory Tests Test 01/19/19 12:47 01/19/19 18:19 01/19/19 21:27 01/20/19 04:24 Bedside Glucose 104 141 117 White Blood Count 24.9 #H Red Blood Count 2.49 L Hemoglobin 7.3 L Hematocrit 23.0 L Mean Corpuscular 92.4 Volume Mean Corpuscular 29.3 Hemoglobin Mean Corpuscular 31.7 L Hemoglobin Concent Red Cell 17.2 H Distribution Width Platelet Count 259 Mean Platelet Volume 10.3 Immature 1.100 H Granulocytes % Neutrophils % 86.8 H Lymphocytes % 6.3 L Monocytes % 5.6 Eosinophils % 0.0 Basophils % 0.2 Nucleated Red Blood 0.0 Cells % Immature 0.270 H Granulocytes # Neutrophils # 21.6 H Lymphocytes # 1.6 Monocytes # 1.4 H Eosinophils # 0.0 Basophils # 0.1 Nucleated Red Blood 0.0 Cells # Sodium Level 134 L Potassium Level 4.4 Chloride Level 102 Carbon Dioxide Level 24 Anion Gap 8 Blood Urea Nitrogen 49 H Creatinine 1.58 H Est Glomerular Filtrat Rate mL/min Glucose Level 41 #*L Calcium Level 8.1 L Test 01/20/19 06:13 01/20/19 06:35 01/20/19 08:39 01/20/19 11:16 Bedside Glucose 54 L 67 L 97 Lactate 266 L Dehydrogenase Test 01/20/19 12:15 Bedside Glucose 107 Medications Medications Current Medications Docusate Sodium (Colace) 100 mg BID PO Last administered on 01/20/19at 09:04; Admin Dose 100 MG; Start 01/17/19 at 18:17 Senna (Senokot) 1 tab HS PO Last administered on 01/19/19at 21:34; Admin Dose 1 TAB; Start 01/17/19 at 18:17 Lactulose (Enulose) 20 gm DAILY PRN PO CONSTIPATION; Start 01/17/19 at 18:17 Acetaminophen (Tylenol Tab) 650 mg Q4H PRN PO PAIN; Start 01/17/19 at 18:17 Miscellaneous Information (Pending [facility] Order For Wound Care) This patient ramirez... PRN PRN XX WOUND CARE; Start 01/17/19 at 18:17 Diagnostic Test (Pha) (Accu-Chek) 1 ea AC MEALS AND BEDTIME XX Last administered on 01/20/19 07:20; Admin Dose 1 EA; Start 01/17/19 at 18:17 Diagnostic Test (Pha) (Accu-Chek) 1 ea 02 XX ; Start 01/17/19 at 18:17 Albuterol/ Ipratropium (Duoneb) 3 ml Q2H RESP THERAPY PRN HHN SHORTNESS OF BREATH; Start 01/17/19 at 18:17 Atorvastatin Calcium (Lipitor) 40 mg QHS PO Last administered on 01/19/19 21:32; Admin Dose 40 MG; Start 01/17/19 at 18:17 Bisacodyl (Dulcolax) 10 mg BID PRN PO CONSTIPATION; Start 01/17/19 at 18:17 Folic Acid (Folic Acid) 1 mg DAILY PO Last administered on 01/20/19 09:05; Admin Dose 1 MG; Start 01/17/19 at 18:17 Insulin Aspart (Novolog Insulin Pen) NOVOLOG *MILD* ALGORITHM WITH MEALS BEDTIME SC Last administered on 01/19/19 18:23; Admin Dose 1 UNIT; Start 01/17/19 at 18:17 Latanoprost (Xalatan) 1 drop HS BOTH EYES Last administered on 01/19/19 21:43; Admin Dose 1 DROP; Start 01/17/19 at 18:17 Levothyroxine Sodium (Synthroid) 125 mcg BEFORE BREAKFAST PO Last administered on 01/20/19 05:52; Admin Dose 125 MCG; Start 01/17/19 at 18:17 Metoprolol Tartrate (Lopressor) 50 mg BID PO Last administered on 01/20/19 09: 05; Admin Dose 50 MG; Start 01/17/19 at 18:17 Nitroglycerin (Nitroglycerin (Sl Tab) 0.4 Mg) 0.4 tab Q5M PRN SL CHEST PAIN; Start 01/17/19 at 18:17 Nystatin (Nystatin Powder) 1 applic BID TOP Last administered on 01/20/19 08:42; Admin Dose 1 APPLIC; Start 01/17/19 at 18:17 Pantoprazole (Protonix Tab) 40 mg DAILY@06 PO Last administered on 01/20/19 05:52; Admin Dose 40 MG; Start 01/17/19 at 18:17 Polyethylene Glycol (Miralax) 17 gm DAILY PO Last administered on 01/19/19 08:11; Admin Dose 17 GM; Start 01/17/19 at 18:17 IV Flush (NS 3 ml) 3 ml PER PROTOCOL IV ; Start 01/17/19 at 18:17 Terazosin HCl (Hytrin) 10 mg HS PO Last administered on 01/19/19 21:33; Admin Dose 10 MG; Start 01/17/19 at 18:17 Miscellaneous Information 1 ea NOTE XX ; Start 01/17/19 at 18:17 Glucose (Glutose) 15 gm Q15M PRN PO DECREASED GLUCOSE; Start 01/17/19 at 18:17 Glucose (Glutose) 22.5 gm Q15M PRN PO DECREASED GLUCOSE; Start 01/17/19 at 18:17 Dextrose (D50w Syringe) 25 ml Q15M PRN IV DECREASED GLUCOSE; Start 01/17/19 at 18:17 Dextrose (D50w Syringe) 50 ml Q15M PRN IV DECREASED GLUCOSE; Start 01/17/19 at 18:17 Glucagon (Glucagen) 1 mg Q15M PRN IM DECREASED GLUCOSE; Start 01/17/19 at 18:17 Glucose (Glutose) 15 gm Q15M PRN BUCCAL DECREASED GLUCOSE; Start 01/17/19 at 18:17 Multivitamins Therapeutic (Theragran) 1 tab DAILY PO Last administered on 01/20/19 09:05; Admin Dose 1 TAB; Start 01/17/19 at 18:17 Zinc Sulfate (Zinc Sulfate) 220 mg DAILY PO Last administered on 01/20/19 09:04; Admin Dose 220 MG; Start 01/17/19 at 18:17 Ascorbic Acid (Vitamin C) 250 mg DAILY PO Last administered on 01/20/19 09:04; Admin Dose 250 MG; Start 01/17/19 at 18:17 Albuterol/ Ipratropium (Duoneb) 3 ml Q6H RESP THERAPY HHN Last administered on 01/20/19 07:42; Admin Dose 3 ML; Start 01/17/19 at 18:17 Multi-Ingredient Ointment (Aquaphor Oint 52.5 Gm) 1 applic BID TOP Last administered on 01/19/19 08:17; Admin Dose 1 APPLIC; Start 01/17/19 at 18:17 Aspirin (Aspirin) 81 mg DAILY PO Last administered on 01/20/19 09:04; Admin Dose 81 MG; Start 01/17/19 at 18:17 Ferrous Sulfate (Ferrous Sulfate (Ec)) 325 mg WITH MEALS PO Last administered on 01/20/19 09:05; Admin Dose 325 MG; Start 01/17/19 at 18:17 Bisacodyl (Dulcolax Supp) 10 mg DAILY PRN [place] CONSTIPATION; Start 01/17/19 at 18:17 Caspofungin 50 mg/ Sodium Chloride 250 ml @ 250 mls/hr Q24H IVPB Last administered on 01/19/19 21:32; Admin Dose 250 MLS/HR; Start 01/17/19 at 18:17 Ertapenem 1 gm/ Sodium Chloride 100 ml @ 200 mls/hr Q24H IVPB Last administered on 01/19/19 23:13; Admin Dose 200 MLS/HR; Start 01/17/19 at 23:30 Linezolid (Zyvox) 600 mg BID PO Last administered on 01/18/19 21:10; Admin Dose 600 MG; Start 01/17/19 at 21:00; Status Hold Cyanocobalamin (Vitamin B12 Inj) 1,000 mcg Q7D IM Last administered on 01/18/19 13:58; Admin Dose 1,000 MCG; Start 01/18/19 at 13:00 Furosemide (Lasix) 20 mg BID DIURETICS IV Last administered on 01/20/19 05:52; Admin Dose 20 MG; Start 01/18/19 at 18:00; Stop 02/02/19 at 17:59 Vancomycin HCl (Vanco Iv Per Pharmacy) VANCOMYCIN PER PHARMACY PER PROTOCOL XX ; Start 01/18/19 at 20:30 Vancomycin HCl 250 ml @ 125 mls/hr Q24H IVPB Last administered on 01/19/19 23:53; Admin Dose 125 MLS/HR; Start 01/20/19 at 00:00 Zinc Acetate/ Diphenhydramine (Benadryl 2% Cr) 1 applic Q6H PRN TOP ITCHING; Start 01/19/19 at 16:37 Nystatin/ Triamcinolone Acetonide (Mycolog Cr) 1 applic BID TOP Last administered on 01/20/19at 08:42; Admin Dose 1 APPLIC; Start 01/19/19 at 22:41 Dextrose 1,000 ml @ 40 mls/hr Q24H IV Last administered on 01/20/19at 06:32; Admin Dose 40 MLS/HR; Start 01/20/19 at 06:30 Epoetin Dae-epbx (RETACRIT(non-esrd)) 20,000 unit Mo@1700 SC ; Start 01/20/19 at 17:00 MARJORIE JAIN Jan 20, 2019 12:39
--- NOTE | 2019-01-20 12:48 | PN ---
Date/Time of Note Date/Time of Note DATE: 01/20/19 TIME: 12:42 Assessment/Plan VTE Prophylaxis Risk score (from Ns)>0 risk: 11 [place] [facility] [place] Pharmacological prophylaxis: NA/contraindicated Pharm contraindication: low risk/ambulating Lines/Catheters IV Catheter Type (from [facility]): Peripheral IV Urinary Cath still in place: Yes Reason Cath still needed: urinary retention Assessment/Plan Assessment/Plan Hospital Course 1. Sepsis, WBC elevated , lactic acidosis WITH WBC 24 today 2. Severe anemia? multifactorial L iron versus vitamin B12 versus anemia of chronic disease 3. Acute on chronic renal failure chronic renal failure likely secondary to sepsis 4. Hypertension. 5. Hyperlipidemia. 6. Hypothyroidism. 7. Normocytic normochromic chronic anemia with recent hemoglobin drop. 8. Bilateral groin cellulitis more likely associated with mateus, patches in groin and axilla bilaterally. Back rash 9. History of rheumatoid arthritis with joint deformities. 10. Diabetes type 2. 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 Peripheral vascular disease. 13. Chronic a.fib 14. right arm edema 15. Neoplasm per CT abdomen. 4.3 cm cystic lesion along the pancreas body, enlarged since 10/10/2012 (previously 2.4 cm). 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 16. Possible allergic skin reaction 17 altered mental status delirium Assessment/Plan -WBC is rising, on IV antibiotics per ID no source yet though -We will check for CT of the head ,hold sedatives, cw with D5 for low blood sugars -Transfer to telemetry for closer monitoring neurochecks -Started on Epogen per oncology -oncology consul dr Lorenzo aware:he said Ca 19-9 is negative indicating unlikely malignant. This may be a pseudocyst or a precancerous pancreatic lesion. It has been growing in size but patient is asymptomatic. EUS with biopsy is recommended and can either be done inpatient or outpatient setting. The patient at this time is unlikely a candidate for a Whipple surgery however. -skin care -transfuse hemoglobin less than 7 -IV Lasix To family at bedside Result Diagram: 01/20/19 0424 01/20/19 0424 Results 24hrs Laboratory Tests Test 01/19/19 12:47 01/19/19 18:19 01/19/19 21:27 01/20/19 04:24 Bedside Glucose 104 141 117 White Blood Count 24.9 #H Red Blood Count 2.49 L Hemoglobin 7.3 L Hematocrit 23.0 L Mean Corpuscular 92.4 Volume Mean Corpuscular 29.3 Hemoglobin Mean Corpuscular 31.7 L Hemoglobin Concent Red Cell 17.2 H Distribution Width Platelet Count 259 Mean Platelet Volume 10.3 Immature 1.100 H Granulocytes % Neutrophils % 86.8 H Lymphocytes % 6.3 L Monocytes % 5.6 Eosinophils % 0.0 Basophils % 0.2 Nucleated Red Blood 0.0 Cells % Immature 0.270 H Granulocytes # Neutrophils # 21.6 H Lymphocytes # 1.6 Monocytes # 1.4 H Eosinophils # 0.0 Basophils # 0.1 Nucleated Red Blood 0.0 Cells # Sodium Level 134 L Potassium Level 4.4 Chloride Level 102 Carbon Dioxide Level 24 Anion Gap 8 Blood Urea Nitrogen 49 H Creatinine 1.58 H Est Glomerular Filtrat Rate mL/min Glucose Level 41 #*L Calcium Level 8.1 L Test 01/20/19 06:13 01/20/19 06:35 01/20/19 08:39 01/20/19 11:16 Bedside Glucose 54 L 67 L 97 Lactate 266 L Dehydrogenase Test 01/20/19 12:15 Bedside Glucose 107 Subjective 24 Hr Interval Summary Free Text/Dictation It is more altered than usual. To the daughter who was present at the bedside patient was not responding to her much either open his eyes and went back to sleep RECEIVED Lyrica this morning Exam/Review of Systems Exam Vitals Vital Signs Date Temp Pulse Resp B/P (MAP) Pulse Ox O2 O2 Flow FiO2 Time Delivery Rate 01/20/19 98.0 77 18 110/51 100 07:50 (70) 01/20/19 Nasal 2.0 07:43 Cannula 01/18/19 21 09:23 Intake and Output 01/19/19 01/19/19 01/20/19 1515:00 23:00 07:00 IntakeIntake Total 600 ml 370 ml 750 ml OutputOutput Total 501 ml 600 ml BalanceBalance 600 ml -131 ml 150 ml Exam onstitutional: Opens eyes goes back to sleep Head: normocephalic Eyes: nl conjunctiva ENMT: nl external ears & nose Cardiovascular: regular rate and rhythm Gastrointestinal: soft Genitourinary - Male: other (rinaldi) Skin: other (severe redness of skin) sloughing of the skin Swelling of the legs abdominal distention Results Results 24hrs Laboratory Tests Test 01/19/19 12:47 01/19/19 18:19 01/19/19 21:27 01/20/19 04:24 Bedside Glucose 104 141 117 White Blood Count 24.9 #H Red Blood Count 2.49 L Hemoglobin 7.3 L Hematocrit 23.0 L Mean Corpuscular 92.4 Volume Mean Corpuscular 29.3 Hemoglobin Mean Corpuscular 31.7 L Hemoglobin Concent Red Cell 17.2 H Distribution Width Platelet Count 259 Mean Platelet Volume 10.3 Immature 1.100 H Granulocytes % Neutrophils % 86.8 H Lymphocytes % 6.3 L Monocytes % 5.6 Eosinophils % 0.0 Basophils % 0.2 Nucleated Red Blood 0.0 Cells % Immature 0.270 H Granulocytes # Neutrophils # 21.6 H Lymphocytes # 1.6 Monocytes # 1.4 H Eosinophils # 0.0 Basophils # 0.1 Nucleated Red Blood 0.0 Cells # Sodium Level 134 L Potassium Level 4.4 Chloride Level 102 Carbon Dioxide Level 24 Anion Gap 8 Blood Urea Nitrogen 49 H Creatinine 1.58 H Est Glomerular Filtrat Rate mL/min Glucose Level 41 #*L Calcium Level 8.1 L Test 01/20/19 06:13 01/20/19 06:35 01/20/19 08:39 01/20/19 11:16 Bedside Glucose 54 L 67 L 97 Lactate 266 L Dehydrogenase Test 01/20/19 12:15 Bedside Glucose 107 Medications Medication Current Medications Docusate Sodium (Colace) 100 mg BID PO Last administered on 01/20/19at 09:04; Admin Dose 100 MG; Start 01/17/19 at 18:17 Senna (Senokot) 1 tab HS PO Last administered on 01/19/19at 21:34; Admin Dose 1 TAB; Start 01/17/19 at 18:17 Lactulose (Enulose) 20 gm DAILY PRN PO CONSTIPATION; Start 01/17/19 at 18:17 Acetaminophen (Tylenol Tab) 650 mg Q4H PRN PO PAIN; Start 01/17/19 at 18:17 Miscellaneous Information (Pending [facility] Order For Wound Care) This patient ramirez... PRN PRN XX WOUND CARE; Start 01/17/19 at 18:17 Diagnostic Test (Pha) (Accu-Chek) 1 ea AC MEALS AND BEDTIME XX Last administ ered on 01/20/19 07:20; Admin Dose 1 EA; Start 01/17/19 at 18:17 Diagnostic Test (Pha) (Accu-Chek) 1 ea 02 XX ; Start 01/17/19 at 18:17 Albuterol/ Ipratropium (Duoneb) 3 ml Q2H RESP THERAPY PRN HHN SHORTNESS OF BREATH; Start 01/17/19 at 18:17 Atorvastatin Calcium (Lipitor) 40 mg QHS PO Last administered on 01/19/19 21:32; Admin Dose 40 MG; Start 01/17/19 at 18:17 Bisacodyl (Dulcolax) 10 mg BID PRN PO CONSTIPATION; Start 01/17/19 at 18:17 Folic Acid (Folic Acid) 1 mg DAILY PO Last administered on 01/20/19 09:05; Admin Dose 1 MG; Start 01/17/19 at 18:17 Insulin Aspart (Novolog Insulin Pen) NOVOLOG *MILD* ALGORITHM WITH MEALS BEDTIME SC Last administered on 01/19/19 18:23; Admin Dose 1 UNIT; Start 01/17/19 at 18:17 Latanoprost (Xalatan) 1 drop HS BOTH EYES Last administered on 01/19/19 21:43; Admin Dose 1 DROP; Start 01/17/19 at 18:17 Levothyroxine Sodium (Synthroid) 125 mcg BEFORE BREAKFAST PO Last administered on 01/20/19 05:52; Admin Dose 125 MCG; Start 01/17/19 at 18:17 Metoprolol Tartrate (Lopressor) 50 mg BID PO Last administered on 01/20/19 09:05; Admin Dose 50 MG; Start 01/17/19 at 18:17 Nitroglycerin (Nitroglycerin (Sl Tab) 0.4 Mg) 0.4 tab Q5M PRN SL CHEST PAIN; Start 01/17/19 at 18:17 Nystatin (Nystatin Powder) 1 applic BID TOP Last administered on 01/20/19 08:42; Admin Dose 1 APPLIC; Start 01/17/19 at 18:17 Pantoprazole (Protonix Tab) 40 mg DAILY@06 PO Last administered on 01/20/19 05:52; Admin Dose 40 MG; Start 01/17/19 at 18:17 Polyethylene Glycol (Miralax) 17 gm DAILY PO Last administered on 01/19/19at 08:11; Admin Dose 17 GM; Start 01/17/19 at 18:17 IV Flush (NS 3 ml) 3 ml PER PROTOCOL IV ; Start 01/17/19 at 18:17 Terazosin HCl (Hytrin) 10 mg HS PO Last administered on 01/19/19at 21:33; Admin Dose 10 MG; Start 01/17/19 at 18:17 Miscellaneous Information 1 ea NOTE XX ; Start 01/17/19 at 18:17 Glucose (Glutose) 15 gm Q15M PRN PO DECREASED GLUCOSE; Start 01/17/19 at 18:17 Glucose (Glutose) 22.5 gm Q15M PRN PO DECREASED GLUCOSE; Start 01/17/19 at 18:17 Dextrose (D50w Syringe) 25 ml Q15M PRN IV DECREASED GLUCOSE; Start 01/17/19 at 18:17 Dextrose (D50w Syringe) 50 ml Q15M PRN IV DECREASED GLUCOSE; Start 01/17/19 at 18:17 Glucagon (Glucagen) 1 mg Q15M PRN IM DECREASED GLUCOSE; Start 01/17/19 at 18:17 Glucose (Glutose) 15 gm Q15M PRN BUCCAL DECREASED GLUCOSE; Start 01/17/19 at 18:17 Multivitamins Therapeutic (Theragran) 1 tab DAILY PO Last administered on 01/20/19at 09:05; Admin Dose 1 TAB; Start 01/17/19 at 18:17 Zinc Sulfate (Zinc Sulfate) 220 mg DAILY PO Last administered on 01/20/19 09:04; Admin Dose 220 MG; Start 01/17/19 at 18:17 Ascorbic Acid (Vitamin C) 250 mg DAILY PO Last administered on 01/20/19 09:04; Admin Dose 250 MG; Start 01/17/19 at 18:17 Albuterol/ Ipratropium (Duoneb) 3 ml Q6H RESP THERAPY HHN Last administered on 01/20/19at 07:42; Admin Dose 3 ML; Start 01/17/19 at 18:17 Multi-Ingredient Ointment (Aquaphor Oint 52.5 Gm) 1 applic BID TOP Last administered on 01/19/19at 08:17; Admin Dose 1 APPLIC; Start 01/17/19 at 18:17 Aspirin (Aspirin) 81 mg DAILY PO Last administered on 01/20/19at 09:04; Admin Dose 81 MG; Start 01/17/19 at 18:17 Ferrous Sulfate (Ferrous Sulfate (Ec)) 325 mg WITH MEALS PO Last administered on 01/20/19at 09:05; Admin Dose 325 MG; Start 01/17/19 at 18:17 Bisacodyl (Dulcolax Supp) 10 mg DAILY PRN [place] CONSTIPATION; Start 01/17/19 at 18:17 Caspofungin 50 mg/ Sodium Chloride 250 ml @ 250 mls/hr Q24H IVPB Last administered on 01/19/19at 21:32; Admin Dose 250 MLS/HR; Start 01/17/19 at 18:17 Ertapenem 1 gm/ Sodium Chloride 100 ml @ 200 mls/hr Q24H IVPB Last administ ered on 01/19/19at 23:13; Admin Dose 200 MLS/HR; Start 01/17/19 at 23:30 Cyanocobalamin (Vitamin B12 Inj) 1,000 mcg Q7D IM Last administered on 01/18/19at 13:58; Admin Dose 1,000 MCG; Start 01/18/19 at 13:00 Vancomycin HCl (Vanco Iv Per Pharmacy) VANCOMYCIN PER PHARMACY PER PROTOCOL XX ; Start 01/18/19 at 20:30 Vancomycin HCl 250 ml @ 125 mls/hr Q24H IVPB Last administered on 01/19/19at 23:53; Admin Dose 125 MLS/HR; Start 01/20/19 at 00:00 Zinc Acetate/ Diphenhydramine (Benadryl 2% Cr) 1 applic Q6H PRN TOP ITCHING; Start 01/19/19 at 16:37 Nystatin/ Triamcinolone Acetonide (Mycolog Cr) 1 applic BID TOP Last administered on 01/20/19at 08:42; Admin Dose 1 APPLIC; Start 01/19/19 at 22:41 Dextrose 1,000 ml @ 40 mls/hr Q24H IV Last administered on 01/20/19at 06:32; Admin Dose 40 MLS/HR; Start 01/20/19 at 06:30 Epoetin Dae-epbx (RETACRIT(non-esrd)) 20,000 unit Mo@1700 SC ; Start 01/20/19 at 17:00 Miscellaneous Information (*Rx Drug Level Order Reminder*) VANCO TR LEVEL TONIGHT ... 2300 ONCE XX ; Start 01/20/19 at 23:00; Stop 01/20/19 at 23:01 Furosemide (Lasix) 20 mg DAILY IV ; Start 01/21/19 at 09:00 IVAN AKHTAR MD Jan 20, 2019 12:48
--- NOTE | 2019-01-20 14:26 | CONS ---
Assessment/Plan Assessment/Plan Hospital Course (Demo Recall) Patient is on and off lethargic per report, currently sleeping but in no distress no fevers overnight. WBC 24.9 platelets 259 neutrophils 86.8 BUN 49 creatinine 1.58 Renal ultrasound 2 days ago revealed no evidence of hydronephrosis Microbiology blood cultures repeated on January 17 grew coag negative staph suspicious of onset urine culture has been negative Antimicrobials: Vancomycin, Invanz Physical examination: Obese well-developed chronically ill-appearing - [place] man who is awake in no distress. Head atraumatic normocephalic sclera nonicteric. Neck is supple chest rise symmetrical breath sounds diminished bases. Heart: S1-S2. Abdomen obese soft bowel sounds present extremities without cyanosis, bilateral edema Assessment: 1. Systemic inflammatory response syndrome with ongoing leukocytosis 2. Status post pneumonia 3. Coronary artery disease/history of CABG 4. Advanced rheumatoid arthritis 5. Chronic atrial fibrillation 6. Diabetes 7. BPH 8. Bilateral groin fungal cellulitis 9. Acute on chronic anemia===> s/p EGD/colonoscopy 01/09/19 10. Status post right epididymitis 11. Pancreatic lesion per CT, rule out neoplasm Plan: Clinically unchanged, continue present care, abx, check procalcitonin and lactic acid levels Consultation Date/Type/Reason Admit Date/Time Jan 17, 2019 at 15:58 Initial Consult Date 01/18/19 Type of Consult id Requesting Provider: IVAN AKHTAR MD Date/Time of Note DATE: 01/20/19 TIME: 14:24 Exam/Review of Systems Exam Vitals Vital Signs Date Temp Pulse Resp B/P (MAP) Pulse Ox O2 O2 Flow FiO2 Time Delivery Rate 01/20/19 Nasal 2.0 08:00 Cannula 01/20/19 98.0 77 18 110/51 100 07:50 (70) 01/18/19 21 09:23 Intake and Output 01/19/19 01/19/19 01/20/19 1515:00 23:00 07:00 IntakeIntake Total 600 ml 370 ml 750 ml OutputOutput Total 501 ml 600 ml BalanceBalance 600 ml -131 ml 150 ml Results Result Diagram: 01/20/19 0424 01/20/19 0424 Results 24hrs Laboratory Tests Test 01/19/19 18:19 01/19/19 21:27 01/20/19 04:24 01/20/19 06:13 Bedside Glucose 141 117 54 L White Blood Count 24.9 #H Red Blood Count 2.49 L Hemoglobin 7.3 L Hematocrit 23.0 L Mean Corpuscular 92.4 Volume Mean Corpuscular 29.3 Hemoglobin Mean Corpuscular 31.7 L Hemoglobin Concen t Red Cell 17.2 H Distribution Width Platelet Count 259 Mean Platelet 10.3 Volume Immature 1.100 H Granulocytes % Neutrophils % 86.8 H Lymphocytes % 6.3 L Monocytes % 5.6 Eosinophils % 0.0 Basophils % 0.2 Nucleated Red 0.0 Blood Cells % Immature 0.270 H Granulocytes # Neutrophils # 21.6 H Lymphocytes # 1.6 Monocytes # 1.4 H Eosinophils # 0.0 Basophils # 0.1 Nucleated Red 0.0 Blood Cells # Sodium Level 134 L Potassium Level 4.4 Chloride Level 102 Carbon Dioxide 24 Level Anion Gap 8 Blood Urea 49 H Nitrogen Creatinine 1.58 H Est Glomerular Filtrat Rate mL/min Glucose Level 41 #*L Calcium Level 8.1 L Test 01/20/19 06:35 01/20/19 08:39 01/20/19 11:16 01/20/19 12:15 Bedside Glucose 67 L 97 107 Erythrocyte 50 H Sedimentation Rate Lactate 266 L Dehydrogenase Test 01/20/19 12:33 Blood Gas Blood arterial Specimen Source Arterial Blood 01/20/2019 1:20:3 Date Drawn 7 PM Arterial Blood pH 7.380 (Temp corrected) Arterial Blood 41.3 pCO2 (Temp correct) Arterial Blood 143.1 H pO2 (Temp corrected) Arterial Blood 23.9 HCO3 Arterial Blood -1.2 Base Excess Arterial Blood 98.8 Oxygen Saturation Manuel Test ACCEPTAB Arterial Blood Right Radial Gas Puncture Site Arterial 0.4 Blood Carboxyhemo globin Arterial Blood 0.5 Methemoglobin Blood Gas A-a O2 22.3 Differential Oxyhemoglobin 97.9 Percent Blood Gas 37.0 Temperature Blood Gas NASAL CANNULA Modality FiO2 30.0 Blood Gas TM Notified Whom Blood Gas 01/20/2019 1:31:0 Notified Time 8 PM Medications Medication Current Medications Docusate Sodium (Colace) 100 mg BID PO Last administered on 01/20/19at 09:04; Admin Dose 100 MG; Start 01/17/19 at 18:17 Senna (Senokot) 1 tab HS PO Last administered on 01/19/19at 21:34; Admin Dose 1 TAB; Start 01/17/19 at 18:17 Lactulose (Enulose) 20 gm DAILY PRN PO CONSTIPATION; Start 01/17/19 at 18:17 Acetaminophen (Tylenol Tab) 650 mg Q4H PRN PO PAIN; Start 01/17/19 at 18:17 Miscellaneous Information (Pending Santyl Order For Wound Care) This patient ramirez... PRN PRN XX WOUND CARE; Start 01/17/19 at 18:17 Diagnostic Test (Pha) (Accu-Chek) 1 ea AC MEALS AND BEDTIME XX Last administered on 01/20/19 11:10; Admin Dose 1 EA; Start 01/17/19 at 18:17 Diagnostic Test (Pha) (Accu-Chek) 1 ea 02 XX ; Start 01/17/19 at 18:17 Albuterol/ Ipratropium (Duoneb) 3 ml Q2H RESP THERAPY PRN HHN SHORTNESS OF BREATH; Start 01/17/19 at 18:17 Atorvastatin Calcium (Lipitor) 40 mg QHS PO Last administered on 01/19/19 21:32; Admin Dose 40 MG; Start 01/17/19 at 18:17 Bisacodyl (Dulcolax) 10 mg BID PRN PO CONSTIPATION; Start 01/17/19 at 18:17 Folic Acid (Folic Acid) 1 mg DAILY PO Last administered on 01/20/19 09:05; Admin Dose 1 MG; Start 01/17/19 at 18:17 Insulin Aspart (Novolog Insulin Pen) NOVOLOG *MILD* ALGORITHM WITH MEALS BEDTIME SC Last administered on 01/19/19 18:23; Admin Dose 1 UNIT; Start 01/17/19 at 18:17 Latanoprost (Xalatan) 1 drop HS BOTH EYES Last administered on 01/19/19 21:43; Admin Dose 1 DROP; Start 01/17/19 at 18:17 Levothyroxine Sodium (Synthroid) 125 mcg BEFORE BREAKFAST PO Last administered on 01/20/19 05:52; Admin Dose 125 MCG; Start 01/17/19 at 18:17 Metoprolol Tartrate (Lopressor) 50 mg BID PO Last administered on 01/20/19 09:05; Admin Dose 50 MG; Start 01/17/19 at 18:17 Nitroglycerin (Nitroglycerin (Sl Tab) 0.4 Mg) 0.4 tab Q5M PRN SL CHEST PAIN; Start 01/17/19 at 18:17 Nystatin (Nystatin Powder) 1 applic BID TOP Last administered on 01/20/19at 08:42; Admin Dose 1 APPLIC; Start 01/17/19 at 18:17 Pantoprazole (Protonix Tab) 40 mg DAILY@06 PO Last administered on 01/20/19at 05:52; Admin Dose 40 MG; Start 01/17/19 at 18:17 Polyethylene Glycol (Miralax) 17 gm DAILY PO Last administered on 01/19/19at 08:11; Admin Dose 17 GM; Start 01/17/19 at 18:17 IV Flush (NS 3 ml) 3 ml PER PROTOCOL IV ; Start 01/17/19 at 18:17 Terazosin HCl (Hytrin) 10 mg HS PO Last administered on 01/19/19at 21:33; Admin Dose 10 MG; Start 01/17/19 at 18:17 Miscellaneous Information 1 ea NOTE XX ; Start 01/17/19 at 18:17 Glucose (Glutose) 15 gm Q15M PRN PO DECREASED GLUCOSE; Start 01/17/19 at 18:17 Glucose (Glutose) 22.5 gm Q15M PRN PO DECREASED GLUCOSE; Start 01/17/19 at 18:17 Dextrose (D50w Syringe) 25 ml Q15M PRN IV DECREASED GLUCOSE; Start 01/17/19 at 18:17 Dextrose (D50w Syringe) 50 ml Q15M PRN IV DECREASED GLUCOSE; Start 01/17/19 at 18:17 Glucagon (Glucagen) 1 mg Q15M PRN IM DECREASED GLUCOSE; Start 01/17/19 at 18:17 Glucose (Glutose) 15 gm Q15M PRN BUCCAL DECREASED GLUCOSE; Start 01/17/19 at 18:17 Multivitamins Therapeutic (Theragran) 1 tab DAILY PO Last administered on 01/20/19at 09:05; Admin Dose 1 TAB; Start 01/17/19 at 18:17 Zinc Sulfate (Zinc Sulfate) 220 mg DAILY PO Last administered on 01/20/19at 09:04; Admin Dose 220 MG; Start 01/17/19 at 18:17 Ascorbic Acid (Vitamin C) 250 mg DAILY PO Last administered on 01/20/19at 09:04; Admin Dose 250 MG; Start 01/17/19 at 18:17 Albuterol/ Ipratropium (Duoneb) 3 ml Q6H RESP THERAPY HHN Last administered on 01/20/19 07:42; Admin Dose 3 ML; Start 01/17/19 at 18:17 Multi-Ingredient Ointment (Aquaphor Oint 52.5 Gm) 1 applic BID TOP Last administered on 01/19/19 08:17; Admin Dose 1 APPLIC; Start 01/17/19 at 18:17 Aspirin (Aspirin) 81 mg DAILY PO Last administered on 01/20/19 09:04; Admin Dose 81 MG; Start 01/17/19 at 18:17 Ferrous Sulfate (Ferrous Sulfate (Ec)) 325 mg WITH MEALS PO Last administered on 01/20/19 12:45; Admin Dose 325 MG; Start 01/17/19 at 18:17 Bisacodyl (Dulcolax Supp) 10 mg DAILY PRN [place] CONSTIPATION; Start 01/17/19 at 18:17 Caspofungin 50 mg/ Sodium Chloride 250 ml @ 250 mls/hr Q24H IVPB Last administered on 01/19/19 21:32; Admin Dose 250 MLS/HR; Start 01/17/19 at 18:17 Ertapenem 1 gm/ Sodium Chloride 100 ml @ 200 mls/hr Q24H IVPB Last administered on 01/19/19 23:13; Admin Dose 200 MLS/HR; Start 01/17/19 at 23:30 Cyanocobalamin (Vitamin B12 Inj) 1,000 mcg Q7D IM Last administered on 01/18/19 13:58; Admin Dose 1,000 MCG; Start 01/18/19 at 13:00 Vancomycin HCl (Vanco Iv Per Pharmacy) VANCOMYCIN PER PHARMACY PER PROTOCOL XX ; Start 01/18/19 at 20:30 Vancomycin HCl 250 ml @ 125 mls/hr Q24H IVPB Last administered on 01/19/19 23:53; Admin Dose 125 MLS/HR; Start 01/20/19 at 00:00 Zinc Acetate/ Diphenhydramine (Benadryl 2% Cr) 1 applic Q6H PRN TOP ITCHING; Start 01/19/19 at 16:37 Nystatin/ Triamcinolone Acetonide (Mycolog Cr) 1 applic BID TOP Last administered on 01/20/19at 08:42; Admin Dose 1 APPLIC; Start 01/19/19 at 22:41 Dextrose 1,000 ml @ 40 mls/hr Q24H IV Last administered on 01/20/19at 06:32; Admin Dose 40 MLS/HR; Start 01/20/19 at 06:30 Epoetin Dae-epbx (RETACRIT(non-esrd)) 20,000 unit Mo@1700 SC ; Start 01/20/19 at 17:00 Miscellaneous Information (*Rx Drug Level Order Reminder*) VANCO TR LEVEL TONIGHT ... 2300 ONCE XX ; Start 01/20/19 at 23:00; Stop 01/20/19 at 23:01 Furosemide (Lasix) 20 mg DAILY IV ; Start 01/21/19 at 09:00 LUCIAN HARKINS NP Jan 20, 2019 14:26
[2019-01-20] MEDS: CASPOFUNGIN 50 MG in SOD CHLORIDE 0.9% 250 ML IVPB SCH (18:12)
[2019-01-20] MEDS: EPOETIN ALFA-EPBX (NON-ESRD 10,000 UNIT/ML VIAL SC SCH (18:13)
[2019-01-20] MEDS: LATANOPROST 0.005% 2.5 ML OPH BOTH EYES SCH (21:00)
[2019-01-20] MEDS: SENNA TAB PO SCH (21:27)
[2019-01-20] MEDS: ATORVASTATIN 40 MG TAB PO SCH (21:27)
[2019-01-20] MEDS: TERAZOSIN 5 MG CAP PO SCH (21:27)
[2019-01-21] VITALS (11 sets, daily range): BP systolic 104–152; BP diastolic 54–96; PULSE 76–97; RESP 18–22
[2019-01-21] MEDS: VANCOMYCIN 1 GM 250 ML IVPB SCH
[2019-01-21] MEDS: ACETAMINOPHEN 325 MG TAB PO PRN ×3 (00:40→17:06)
[2019-01-21] MEDS: ERTAPENEM SODIUM 1 GM in SOD CHLORIDE 0.9% 100 ML IVPB SCH (01:30)
[2019-01-21] MEDS: ALBUTEROL/IPRATROPIUM (NEB) 3 ML AMP HHN SCH ×4 (01:49→22:38)
[2019-01-21] MEDS: ACCU-CHEK XX SCH ×5 (01:55→20:51)
[2019-01-21] MEDS: PANTOPRAZOLE (EC) 40 MG TAB PO SCH (06:54)
[2019-01-21] MEDS: LEVOTHYROXINE 125 MCG TAB PO SCH (06:54)
[2019-01-21] MEDS: INSULIN ASPART [NOVOLOG] 3 ML PEN SC SCH ×4 (07:55→20:51)
--- NOTE | 2019-01-21 08:58 | CONS ---
Assessment/Plan Assessment/Plan Hospital Course (Demo Recall) 88 yo male presents from [place] [facility] for SOB and febrile Interval hx: Pending morning labs. M 1. Severe anemia likely due to chronic disease, last work up while admitted to [facility] about a week ago was neg for GI bleeding, including EGD/colon which was done -s/p EGD and colonoscopy by Dr Frost 01/09/19 which didn't find an obvious GI etiology to explain anemia. AVM or a small lesion could be missed due to poor prep. Pt likely needs capsule endoscopy -Neg fob, elevate retic, Low iron, tib[place], [place] [id number] 2. Cystic lesion along pancreas body - 4.3 cm cystic lesion along the pancreas body, enlarged since 10/10/2012 (previously 2.4 cm). 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 -CEA wnl 3. Severe gastritis 4. Hemorrhoids 5. Hital hernia 6. A fib, -eliquis was stopped 01/06 during previous admission, on ASA 7. COPD 8. HTN 9. Hypothyroidism 10. Bilateral groin cellulitis 11. Rheumatoid arthritis. 12. Diabetes mellitus. 13. Peripheral vascular disease. 14. CHF 15. 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 Sepsis- Leukocytosis up to 29, urine cx was unremarkable CT Abd 01/15/19 IMPRESSION: 1. No intra-abdominal inflammation or lymphadenopathy. 2. 4.3 cm cystic lesion along the pancreas body, enlarged since 10/10/2012 (previously 2.4 cm). 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 If clinically warranted, this could be further evaluated with contrast-enhanced MRI. 3. No obstructive uropathy or urinary stone. 4. Enlarged prostate gland. Correlation with PSA level is recommended. 5. Moderate atherosclerotic arterial calcifications. 6. Diffuse subcutaneous edema. 7. Status post posterior decompression and fusion at L5-S1. A malpositioned pedicle screw and impinges on the left L4-5 neural foramen, unchanged. 8. Grade 2 degenerative L4 anterolisthesis and grade 1 degenerative L5 anterolisthesis. Plan Stop miralax for mx bm, hold laxatives for diarrhea Recommend carranza cx Pt will need outpatient EUS to evaluate pancreatic mass Recommend capsule endoscopy as outpatient GI prophylaxis: protonix QD Continue Iron, consider IV iron since pt iron, tibc still low Pain management Pt examined and plan of care discussed with Dr. Frost Consultation Date/Type/Reason Admit Date/Time Jan 17, 2019 at 15:58 Initial Consult Date 01/18/19 Requesting Provider: IVAN AKHTAR MD Date/Time of Note DATE: 01/21/19 TIME: 08:54 Exam/Review of Systems Exam Vitals Vital Signs Date Temp Pulse Resp B/P (MAP) Pulse Ox O2 O2 Flow FiO2 Time Delivery Rate 01/21/19 98.0 94 22 115/54 96 Nasal 3.0 07:46 (74) Cannula 01/18/19 21 09:23 Intake and Output 01/20/19 01/20/19 01/21/19 1515:00 23:00 07:00 IntakeIntake Total 120 ml 60 ml OutputOutput Total 400 ml 900 ml BalanceBalance -280 ml -840 ml Results Result Diagram: 01/20/19 0424 01/20/19 0424 Results 24hrs Laboratory Tests Test 01/20/19 11:16 01/20/19 12:15 01/20/19 12:33 01/20/19 14:54 Erythrocyte 50 H Sedimentation Rate Lactate 266 L Dehydrogenase Bedside Glucose 107 Blood Gas Blood arterial Specimen Source Arterial Blood 01/20/2019 1:20:3 Date Drawn 7 PM Arterial Blood pH 7.380 (Temp corrected) Arterial Blood 41.3 pCO2 (Temp correct) Arterial Blood 143.1 H pO2 (Temp corrected) Arterial Blood 23.9 HCO3 Arterial Blood -1.2 Base Excess Arterial Blood 98.8 Oxygen Saturation Manuel Test ACCEPTAB Arterial Blood Right Radial Gas Puncture Site Arterial 0.4 Blood Carboxyhemo globin Arterial Blood 0.5 Methemoglobin Blood Gas A-a O2 22.3 Differential Oxyhemoglobin 97.9 Percent Blood Gas 37.0 Temperature Blood Gas NASAL CANNULA Modality FiO2 30.0 Blood Gas TM Notified Whom Blood Gas 01/20/2019 1:31:0 Notified Time 8 PM Lactic Acid Level 1.7 Test 01/20/19 17:14 01/20/19 20:54 01/20/19 23:19 01/21/19 01:47 Bedside Glucose 91 85 105 Vancomycin Level 21.6 *H Trough Test 01/21/19 07:54 Bedside Glucose 133 Medications Medication Current Medications Docusate Sodium (Colace) 100 mg BID PO Last administered on 01/20/19 21:01; Admin Dose 100 MG; Start 01/17/19 at 18:17 Senna (Senokot) 1 tab HS PO Last administered on 01/20/19 21:27; Admin Dose 1 TAB; Start 01/17/19 at 18:17 Lactulose (Enulose) 20 gm DAILY PRN PO CONSTIPATION; Start 01/17/19 at 18:17 Acetaminophen (Tylenol Tab) 650 mg Q4H PRN PO PAIN Last administered on 01/21/19 00:40; Admin Dose 650 MG; Start 01/17/19 at 18:17 Miscellaneous Information (Pending Santyl Order For Wound Care) This patient ramirez... PRN PRN XX WOUND CARE; Start 01/17/19 at 18:17 Diagnostic Test (Pha) (Accu-Chek) 1 ea AC MEALS AND BEDTIME XX Last administered on 01/20/19 21:28; Admin Dose 1 EA; Start 01/17/19 at 18:17 Diagnostic Test (Pha) (Accu-Chek) 1 ea 02 XX Last administered on 01/21/19 01:55; Admin Dose 1 EA; Start 01/17/19 at 18:17 Albuterol/ Ipratropium (Duoneb) 3 ml Q2H RESP THERAPY PRN HHN SHORTNESS OF BREATH; Start 01/17/19 at 18:17 Atorvastatin Calcium (Lipitor) 40 mg QHS PO Last administered on 01/20/19 21:2 7; Admin Dose 40 MG; Start 01/17/19 at 18:17 Bisacodyl (Dulcolax) 10 mg BID PRN PO CONSTIPATION; Start 01/17/19 at 18:17 Folic Acid (Folic Acid) 1 mg DAILY PO Last administered on 01/20/19 09:05; A dmin Dose 1 MG; Start 01/17/19 at 18:17 Insulin Aspart (Novolog Insulin Pen) NOVOLOG *MILD* ALGORITHM WITH MEALS BEDTIME SC Last administered on 01/19/19 18:23; Admin Dose 1 UNIT; Start 01/17/19 at 18:17 Latanoprost (Xalatan) 1 drop HS BOTH EYES Last administered on 01/20/19 21:00; Admin Dose 1 DROP; Start 01/17/19 at 18:17 Levothyroxine Sodium (Synthroid) 125 mcg BEFORE BREAKFAST PO Last administered on 01/21/19 06:54; Admin Dose 125 MCG; Start 01/17/19 at 18:17 Metoprolol Tartrate (Lopressor) 50 mg BID PO Last administered on 01/20/19 21:27; Admin Dose 50 MG; Start 01/17/19 at 18:17 Nitroglycerin (Nitroglycerin (Sl Tab) 0.4 Mg) 0.4 tab Q5M PRN SL CHEST PAIN; Start 01/17/19 at 18:17 Nystatin (Nystatin Powder) 1 applic BID TOP Last administered on 01/20/19 21:28; Admin Dose 1 APPLIC; Start 01/17/19 at 18:17 Pantoprazole (Protonix Tab) 40 mg DAILY@06 PO Last administered on 01/21/19 06:54; Admin Dose 40 MG; Start 01/17/19 at 18:17 Polyethylene Glycol (Miralax) 17 gm DAILY PO Last administered on 01/19/19 08:11; Admin Dose 17 GM; Start 01/17/19 at 18:17 IV Flush (NS 3 ml) 3 ml PER PROTOCOL IV ; Start 01/17/19 at 18:17 Terazosin HCl (Hytrin) 10 mg HS PO Last administered on 01/20/19 21:27; Admin Dose 10 MG; Start 01/17/19 at 18:17 Miscellaneous Information 1 ea NOTE XX ; Start 01/17/19 at 18:17 Glucose (Glutose) 15 gm Q15M PRN PO DECREASED GLUCOSE; Start 01/17/19 at 18:17 Glucose (Glutose) 22.5 gm Q15M PRN PO DECREASED GLUCOSE; Start 01/17/19 at 18:17 Dextrose (D50w Syringe) 25 ml Q15M PRN IV DECREASED GLUCOSE; Start 01/17/19 at 18:17 Dextrose (D50w Syringe) 50 ml Q15M PRN IV DECREASED GLUCOSE; Start 01/17/19 at 18:17 Glucagon (Glucagen) 1 mg Q15M PRN IM DECREASED GLUCOSE; Start 01/17/19 at 18:17 Glucose (Glutose) 15 gm Q15M PRN BUCCAL DECREASED GLUCOSE; Start 01/17/19 at 18:17 Multivitamins Therapeutic (Theragran) 1 tab DAILY PO Last administered on 01/20/19 09:05; Admin Dose 1 TAB; Start 01/17/19 at 18:17 Zinc Sulfate (Zinc Sulfate) 220 mg DAILY PO Last administered on 01/20/19 09:04; Admin Dose 220 MG; Start 01/17/19 at 18:17 Ascorbic Acid (Vitamin C) 250 mg DAILY PO Last administered on 01/20/19 09:04; Admin Dose 250 MG; Start 01/17/19 at 18:17 Albuterol/ Ipratropium (Duoneb) 3 ml Q6H RESP THERAPY HHN Last administered on 01/21/19 08:45; Admin Dose 3 ML; Start 01/17/19 at 18:17 Multi-Ingredient Ointment (Aquaphor Oint 52.5 Gm) 1 applic BID TOP Last administered on 01/20/19 21:28; Admin Dose 1 APPLIC; Start 01/17/19 at 18:17 Aspirin (Aspirin) 81 mg DAILY PO Last administered on 01/20/19 09:04; Admin Dose 81 MG; Start 01/17/19 at 18:17 Ferrous Sulfate (Ferrous Sulfate (Ec)) 325 mg WITH MEALS PO Last administered on 01/20/19 17:16; Admin Dose 325 MG; Start 01/17/19 at 18:17 Bisacodyl (Dulcolax Supp) 10 mg DAILY PRN [place] CONSTIPATION; Start 01/17/19 at 18:17 Caspofungin 50 mg/ Sodium Chloride 250 ml @ 250 mls/hr Q24H IVPB Last administered on 01/20/19at 18:12; Admin Dose 250 MLS/HR; Start 01/17/19 at 18:17 Ertapenem 1 gm/ Sodium Chloride 100 ml @ 200 mls/hr Q24H IVPB Last administered on 01/21/19 01:30; Admin Dose 200 MLS/HR; Start 01/17/19 at 23:30 Vancomycin HCl (Vanco Iv Per Pharmacy) VANCOMYCIN PER PHARMACY PER PROTOCOL XX ; Start 01/18/19 at 20:30 Vancomycin HCl 250 ml @ 125 mls/hr Q24H IVPB Last administered on 01/19/19at 23:53; Admin Dose 125 MLS/HR; Start 01/20/19 at 00:00; Status Hold Zinc Acetate/ Diphenhydramine (Benadryl 2% Cr) 1 applic Q6H PRN TOP ITCHING; Start 01/19/19 at 16:37 Nystatin/ Triamcinolone Acetonide (Mycolog Cr) 1 applic BID TOP Last administered on 01/20/19at 21:35; Admin Dose 1 APPLIC; Start 01/19/19 at 22:41 Dextrose 1,000 ml @ 40 mls/hr Q24H IV Last administered on 01/20/19at 16:27; Admin Dose 40 MLS/HR; Start 01/20/19 at 06:30 Epoetin Dae-epbx (RETACRIT(non-esrd)) 20,000 unit Mo@1700 SC Last administered on 01/20/19at 18:13; Admin Dose 20,000 UNIT; Start 01/20/19 at 17:00 Furosemide (Lasix) 20 mg DAILY IV ; Start 01/21/19 at 09:00 IV Flush (NS 10 ml) 10 ml PRN PRN IV IV PROTOCOL; Start 01/20/19 at 14:30 Cyanocobalamin (Vitamin B12 Inj) 1,000 mcg Q7D IM ; Start 02/03/19 at 09:00 Cyanocobalamin (Vitamin B12 Inj) 1,000 mcg DAILY IM ; Start 01/21/19 at 09:00; Stop 01/27/19 at 09:00 GISELLA VENTURA Jan 21, 2019 08:58
[2019-01-21] MEDS: ASCORBIC ACID 250 MG TAB PO SCH (09:34)
[2019-01-21] MEDS: MULTIVITAMINS THERAPEUTIC TAB PO SCH (09:34)
[2019-01-21] MEDS: FERROUS SULFATE (EC) 325 MG TAB PO SCH ×3 (09:34→17:16)
[2019-01-21] MEDS: DOCUSATE SODIUM 100 MG CAP PO SCH ×2 (09:34→20:24)
[2019-01-21] MEDS: FOLIC ACID 1 MG TAB PO SCH (09:34)
[2019-01-21] MEDS: ASPIRIN 81 MG TAB PO SCH (09:34)
[2019-01-21] MEDS: NYSTATIN/TRIAMCINOLONE 15 GM CR TOP SCH ×2 (09:35→20:25)
[2019-01-21] MEDS: METOPROLOL 50 MG TAB PO SCH ×2 (09:35→20:32)
[2019-01-21] MEDS: ZINC SULFATE 220 MG CAP PO SCH (09:35)
[2019-01-21] MEDS: BALSAM PERU/CASTOR OIL 60 GM TUBE TOP SCH ×2 (09:36→20:25)
[2019-01-21] MEDS: NYSTATIN 30 GM POWDER BTL TOP SCH ×2 (09:37→20:25)
[2019-01-21] MEDS: AQUAPHOR 52.5 GM OINT TOP SCH ×2 (09:37→20:53)
[2019-01-21] MEDS: CYANOCOBALAMIN 1000 MCG INJ IM SCH (09:38)
[2019-01-21] MEDS: FUROSEMIDE 20 MG INJ IV SCH (09:47)
[2019-01-21] MEDS ORDERED: VANCOMYCIN 1 GM 250 ML IVPB SCH (12:00)
[2019-01-21] MEDS ORDERED: MAGNESIUM SULFATE 2 GM/50 ML 50 ML IVPB ONE (12:30)
--- NOTE | 2019-01-21 13:25 | PN ---
Date/Time of Note Date/Time of Note DATE: 01/21/19 TIME: 13:21 Assessment/Plan VTE Prophylaxis Risk score (from Ns)>0 risk: 7 SCD applied (from [facility] [place]): Yes Pharmacological prophylaxis: NA/contraindicated Pharm contraindication: low risk/ambulating Lines/Catheters IV Catheter Type (from [facility]): PICC Line Central line still needed: Yes Urinary Cath still in place: Yes Reason Cath still needed: urinary retention Assessment/Plan Assessment/Plan Hospital Course 1. Sepsis, WBC elevated , lactic acidosis WITH WBC 24 today >23 2. Severe anemia? multifactorial L iron versus vitamin B12 versus anemia of chronic disease 3. Acute on chronic renal failure chronic renal failure likely secondary to sepsis 4. Hypertension. 5. Hyperlipidemia. 6. Hypothyroidism. 7. Normocytic normochromic chronic anemia with recent hemoglobin drop. 8. Bilateral groin cellulitis more likely associated with mateus, patches in groin and axilla bilaterally. Back rash 9. History of rheumatoid arthritis with joint deformities. 10. Diabetes type 2. 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 Peripheral vascular disease. 13. Chronic a.fib 14. right arm edema 15. Neoplasm per CT abdomen. 4.3 cm cystic lesion along the pancreas body, enlarged since 10/10/2012 (previously 2.4 cm). 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 16. 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 This may be a pseudocyst or a precancerous pancreatic lesion. It has been growing in size but patient is asymptomatic. EUS with biopsy is recommended and can either be done inpatient or outpatient setting. The patient at this time is unlikely a candidate for a Whipple surgery however. -skin care -transfuse hemoglobin less than 7 -IV Lasix - Replete Mg dispo pending improvement in WBC Result Diagram: 01/21/19 0933 01/21/19 0933 Results 24hrs Laboratory Tests Test 01/20/19 14:54 01/20/19 17:14 01/20/19 20:54 01/20/19 23:19 Lactic Acid Level 1.7 Bedside Glucose 91 85 Vancomycin Level 21.6 *H Trough Test 01/21/19 01:47 01/21/19 07:54 01/21/19 09:33 01/21/19 12:19 Bedside Glucose 105 133 139 White Blood Count 23.6 H Red Blood Count 2.59 L Hemoglobin 7.6 L Hematocrit 23.8 L Mean Corpuscular 91.9 Volume Mean Corpuscular 29.3 Hemoglobin Mean Corpuscular 31.9 L Hemoglobin Concent Red Cell 17.4 H Distribution Width Platelet Count 304 Mean Platelet Volume 10.4 Immature 0.600 H Granulocytes % Neutrophils % 89.2 H Lymphocytes % 5.4 L Monocytes % 4.4 Eosinophils % 0.2 Basophils % 0.2 Nucleated Red Blood 0.0 Cells % Immature 0.150 H Granulocytes # Neutrophils # 21.1 H Lymphocytes # 1.3 Monocytes # 1.0 H Eosinophils # 0.0 Basophils # 0.1 Nucleated Red Blood 0.0 Cells # Sodium Level 136 Potassium Level 4.2 Chloride Level 102 Carbon Dioxide Level 24 Anion Gap 10 Blood Urea Nitrogen 50 H Creatinine 1.39 H Est Glomerular Filtrat Rate mL/min Glucose Level 114 # Calcium Level 8.3 L Phosphorus Level 4.1 Magnesium Level 1.6 L Total Bilirubin 0.2 Direct Bilirubin 0.00 Indirect Bilirubin 0.2 Aspartate Amino 22 Transf (AST/SGOT) Alanine 20 Aminotransferase (AL T/SGPT) Alkaline Phosphatase 62 Total Protein 4.9 L Albumin 2.2 L Globulin 2.70 Albumin/Globulin 0.81 Ratio Subjective 24 Hr Interval Summary Free Text/Dictation had 4 bm today much more awake.alert Exam/Review of Systems Exam Vitals Vital Signs Date Temp Pulse Resp B/P (MAP) Pulse Ox O2 O2 Flow FiO2 Time Delivery Rate 01/21/19 98.0 76 22 152/69 96 Nasal 2.0 11:27 (96) Cannula 01/18/19 21 09:23 Intake and Output 01/20/19 01/20/19 01/21/19 1414:59 22:59 06:59 IntakeIntake Total 120 ml 60 ml OutputOutput Total 400 ml 900 ml BalanceBalance -280 ml -840 ml Exam onstitutional: awake,alert Head: normocephalic Eyes: nl conjunctiva ENMT: nl external ears & nose Cardiovascular: regular rate and rhythm Gastrointestinal: soft Genitourinary - Male: other (rinaldi) Skin: other (severe redness of skin) sloughing of the skin Swelling of the legs abdominal distention Results Results 24hrs Laboratory Tests Test 01/20/19 14:54 01/20/19 17:14 01/20/19 20:54 01/20/19 23:19 Lactic Acid Level 1.7 Bedside Glucose 91 85 Vancomycin Level 21.6 *H Trough Test 01/21/19 01:47 01/21/19 07:54 01/21/19 09:33 01/21/19 12:19 Bedside Glucose 105 133 139 White Blood Count 23.6 H Red Blood Count 2.59 L Hemoglobin 7.6 L Hematocrit 23.8 L Mean Corpuscular 91.9 Volume Mean Corpuscular 29.3 Hemoglobin Mean Corpuscular 31.9 L Hemoglobin Concent Red Cell 17.4 H Distribution Width Platelet Count 304 Mean Platelet Volume 10.4 Immature 0.600 H Granulocytes % Neutrophils % 89.2 H Lymphocytes % 5.4 L Monocytes % 4.4 Eosinophils % 0.2 Basophils % 0.2 Nucleated Red Blood 0.0 Cells % Immature 0.150 H Granulocytes # Neutrophils # 21.1 H Lymphocytes # 1.3 Monocytes # 1.0 H Eosinophils # 0.0 Basophils # 0.1 Nucleated Red Blood 0.0 Cells # Sodium Level 136 Potassium Level 4.2 Chloride Level 102 Carbon Dioxide Level 24 Anion Gap 10 Blood Urea Nitrogen 50 H Creatinine 1.39 H Est Glomerular Filtrat Rate mL/min Glucose Level 114 # Calcium Level 8.3 L Phosphorus Level 4.1 Magnesium Level 1.6 L Total Bilirubin 0.2 Direct Bilirubin 0.00 Indirect Bilirubin 0.2 Aspartate Amino 22 Transf (AST/SGOT) Alanine 20 Aminotransferase (AL T/SGPT) Alkaline Phosphatase 62 Total Protein 4.9 L Albumin 2.2 L Globulin 2.70 Albumin/Globulin 0.81 Ratio Medications Medication Current Medications Docusate Sodium (Colace) 100 mg BID PO Last administered on 01/21/19at 09:34; Admin Dose 100 MG; Start 01/17/19 at 18:17 Lactulose (Enulose) 20 gm DAILY PRN PO CONSTIPATION; Start 01/17/19 at 18:17 Acetaminophen (Tylenol Tab) 650 mg Q4H PRN PO PAIN Last administered on 01/21/19 09:47; Admin Dose 650 MG; Start 01/17/19 at 18:17 Miscellaneous Information (Pending [facility] Order For Wound Care) This patient ramirez... PRN PRN XX WOUND CARE; Start 01/17/19 at 18:17 Diagnostic Test (Pha) (Accu-Chek) 1 ea AC MEALS AND BEDTIME XX Last administered on 01/20/19 21:28; Admin Dose 1 EA; Start 01/17/19 at 18:17 Diagnostic Test (Pha) (Accu-Chek) 1 ea 02 XX Last administered on 01/21/19 01:55; Admin Dose 1 EA; Start 01/17/19 at 18:17 Albuterol/ Ipratropium (Duoneb) 3 ml Q2H RESP THERAPY PRN HHN SHORTNESS OF BREATH; Start 01/17/19 at 18:17 Atorvastatin Calcium (Lipitor) 40 mg QHS PO Last administered on 01/20/19 21:27; Admin Dose 40 MG; Start 01/17/19 at 18:17 Bisacodyl (Dulcolax) 10 mg BID PRN PO CONSTIPATION; Start 01/17/19 at 18:17 Folic Acid (Folic Acid) 1 mg DAILY PO Last administered on 01/21/19 09:34; Admin Dose 1 MG; Start 01/17/19 at 18:17 Insulin Aspart (Novolog Insulin Pen) NOVOLOG *MILD* ALGORITHM WITH MEALS BEDTIME SC Last administered on 01/19/19 18:23; Admin Dose 1 UNIT; Start 01/17/19 at 18:17 Latanoprost (Xalatan) 1 drop HS BOTH EYES Last administered on 01/20/19 21:00; Admin Dose 1 DROP; Start 01/17/19 at 18:17 Levothyroxine Sodium (Synthroid) 125 mcg BEFORE BREAKFAST PO Last administered on 01/21/19 06:54; Admin Dose 125 MCG; Start 01/17/19 at 18:17 Metoprolol Tartrate (Lopressor) 50 mg BID PO Last administered on 01/21/19 09:35; Admin Dose 50 MG; Start 01/17/19 at 18:17 Nitroglycerin (Nitroglycerin (Sl Tab) 0.4 Mg) 0.4 tab Q5M PRN SL CHEST PAIN; Start 01/17/19 at 18:17 Nystatin (Nystatin Powder) 1 applic BID TOP Last administered on 01/21/19 09:37; Admin Dose 1 APPLIC; Start 01/17/19 at 18:17 Pantoprazole (Protonix Tab) 40 mg DAILY@06 PO Last administered on 01/21/19 06:54; Admin Dose 40 MG; Start 01/17/19 at 18:17 IV Flush (NS 3 ml) 3 ml PER PROTOCOL IV ; Start 01/17/19 at 18:17 Terazosin HCl (Hytrin) 10 mg HS PO Last administered on 01/20/19 21:27; Admin Dose 10 MG; Start 01/17/19 at 18:17 Miscellaneous Information 1 ea NOTE XX ; Start 01/17/19 at 18:17 Glucose (Glutose) 15 gm Q15M PRN PO DECREASED GLUCOSE; Start 01/17/19 at 18:17 Glucose (Glutose) 22.5 gm Q15M PRN PO DECREASED GLUCOSE; Start 01/17/19 at 18:17 Dextrose (D50w Syringe) 25 ml Q15M PRN IV DECREASED GLUCOSE; Start 01/17/19 at 18:17 Dextrose (D50w Syringe) 50 ml Q15M PRN IV DECREASED GLUCOSE; Start 01/17/19 at 18:17 Glucagon (Glucagen) 1 mg Q15M PRN IM DECREASED GLUCOSE; Start 01/17/19 at 18:17 Glucose (Glutose) 15 gm Q15M PRN BUCCAL DECREASED GLUCOSE; Start 01/17/19 at 18:17 Multivitamins Therapeutic (Theragran) 1 tab DAILY PO Last administered on 01/21/19 09:34; Admin Dose 1 TAB; Start 01/17/19 at 18:17 Zinc Sulfate (Zinc Sulfate) 220 mg DAILY PO Last administered on 01/21/19 09:35; Admin Dose 220 MG; Start 01/17/19 at 18:17 Ascorbic Acid (Vitamin C) 250 mg DAILY PO Last administered on 01/21/19 09:34; Admin Dose 250 MG; Start 01/17/19 at 18:17 Albuterol/ Ipratropium (Duoneb) 3 ml Q6H RESP THERAPY HHN Last administered on 01/21/19 08:45; Admin Dose 3 ML; Start 01/17/19 at 18:17 Multi-Ingredient Ointment (Aquaphor Oint 52.5 Gm) 1 applic BID TOP Last administered on 01/21/19 09:37; Admin Dose 1 APPLIC; Start 01/17/19 at 18:17 Aspirin (Aspirin) 81 mg DAILY PO Last administered on 01/21/19 09:34; Admin Dose 81 MG; Start 01/17/19 at 18:17 Ferrous Sulfate (Ferrous Sulfate (Ec)) 325 mg WITH MEALS PO Last administered on 01/21/19 12:53; Admin Dose 325 MG; Start 01/17/19 at 18:17 Bisacodyl (Dulcolax Supp) 10 mg DAILY PRN DE CONSTIPATION; Start 01/17/19 at 18:17 Caspofungin 50 mg/ Sodium Chloride 250 ml @ 250 mls/hr Q24H IVPB Last administered on 01/20/19 18:12; Admin Dose 250 MLS/HR; Start 01/17/19 at 18:17 Ertapenem 1 gm/ Sodium Chloride 100 ml @ 200 mls/hr Q24H IVPB Last administered on 01/21/19 01:30; Admin Dose 200 MLS/HR; Start 01/17/19 at 23:30 Vancomycin HCl (Vanco Iv Per Pharmacy) VANCOMYCIN PER PHARMACY PER PROTOCOL XX ; Start 01/18/19 at 20:30 Zinc Acetate/ Diphenhydramine (Benadryl 2% Cr) 1 applic Q6H PRN TOP ITCHING; Start 01/19/19 at 16:37 Nystatin/ Triamcinolone Acetonide (Mycolog Cr) 1 applic BID TOP Last administered on 01/21/19 09:35; Admin Dose 1 APPLIC; Start 01/19/19 at 22:41 Dextrose 1,000 ml @ 40 mls/hr Q24H IV Last administered on 01/20/19 16:27; Admin Dose 40 MLS/HR; Start 01/20/19 at 06:30 Epoetin Dae-epbx (RETACRIT(non-esrd)) 20,000 unit Mo@1700 SC Last administered on 01/20/19 18:13; Admin Dose 20,000 UNIT; Start 01/20/19 at 17:00 Furosemide (Lasix) 20 mg DAILY IV Last administered on 01/21/19 09:47; Admin Dose 20 MG; Start 01/21/19 at 09:00 IV Flush (NS 10 ml) 10 ml PRN PRN IV IV PROTOCOL; Start 01/20/19 at 14:30 Cyanocobalamin (Vitamin B12 Inj) 1,000 mcg Q7D IM ; Start 02/03/19 at 09:00 Cyanocobalamin (Vitamin B12 Inj) 1,000 mcg DAILY IM Last administered on 01/21/19at 09:38; Admin Dose 1,000 MCG; Start 01/21/19 at 09:00; Stop 01/27/19 at 09:00 Vancomycin HCl 250 ml @ 125 mls/hr Q36H IVPB Last administered on 01/21/19at 12:53; Admin Dose 125 MLS/HR; Start 01/21/19 at 12:00 Magnesium Sulfate 50 ml @ 25 mls/hr ONCE ONCE IVPB ; Start 01/21/19 at 12:30; Stop 01/21/19 at 14:29 IVAN AKHTAR MD Jan 21, 2019 13:25
--- NOTE | 2019-01-21 13:33 | CONS ---
Assessment/Plan Assessment/Plan Hospital Course (Demo Recall) 88 yo male with multiple medical problems including DM, CRF, RA, PVD and chronic afib on Eliquis who presented to [facility] 01/05/19 with severe normocytic anemia and Hg ~7. 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 # Anemia-normocytic -Multifactorial at this time due to iron deficiency, vitamin b12 deficiency and also likely anemia of chronic kidney disease and inflammation. Elevated Methylmalonic acid level noted -Patient still has low iron level even though ferritin is elevated. Ferritin likely elevated due to acute phase reactant. -Instead po iron may need IV iron as patient has severe atrophic gastritis which may be causing absorption issues. -continue vitamin b12 weekly as vitamin b12 was low normal and methylmalonic acid was elevated. Continue folate as well. -No evidence of hemolysis at this time. -Transfuse to keep Hgb > 7. 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 -This may be a pseudocyst or a precancerous pancreatic lesion. -It has been growing in size but patient is asymptomatic. EUS with biopsy is recommended and can either be done inpatient or oupatient setting. -The patient at this time is unlikely a candidate for a whipple surgery however. Thank you to Dr. Alatorre for allowing [facility] to participate in the care of this patient. A total of 40 minutes was spent in consultation with this patient and all his questions were answered. Consultation Date/Type/Reason Admit Date/Time Jan 17, 2019 at 15:58 Initial Consult Date 01/18/19 Type of Consult hematology Reason for Consultation anemia Requesting Provider: IVAN AKHTAR MD Date/Time of Note DATE: 01/21/19 TIME: 13:23 24 HR Interval Summary Free Text/Dictation no acute overnight events Exam/Review of Systems Exam Vitals Vital Signs Date Temp Pulse Resp B/P (MAP) Pulse Ox O2 O2 Flow FiO2 Time Delivery Rate 01/21/19 98.0 76 22 152/69 96 Nasal 2.0 11:27 (96) Cannula 01/18/19 21 09:23 Intake and Output 01/20/19 01/20/19 01/21/19 1515:00 23:00 07:00 IntakeIntake Total 120 ml 60 ml OutputOutput Total 400 ml 900 ml BalanceBalance -280 ml -840 ml Constitutional: alert, oriented Psych: no complaints Head: normocephalic Eyes: nl conjunctiva ENMT: nl external ears & nose Neck: supple Respiratory: clear to auscultation Cardiovascular: regular rate and rhythm Gastrointestinal: soft Musculoskeletal: nl extremities to inspection Results Result Diagram: 01/21/19 0933 01/21/19 0933 Results 24hrs Laboratory Tests Test 01/20/19 14:54 01/20/19 17:14 01/20/19 20:54 01/20/19 23:19 Lactic Acid Level 1.7 Bedside Glucose 91 85 Vancomycin Level 21.6 *H Trough Test 01/21/19 01:47 01/21/19 07:54 01/21/19 09:33 01/21/19 12:19 Bedside Glucose 105 133 139 White Blood Count 23.6 H Red Blood Count 2.59 L Hemoglobin 7.6 L Hematocrit 23.8 L Mean Corpuscular 91.9 Volume Mean Corpuscular 29.3 Hemoglobin Mean Corpuscular 31.9 L Hemoglobin Concent Red Cell 17.4 H Distribution Width Platelet Count 304 Mean Platelet Volume 10.4 Immature 0.600 H Granulocytes % Neutrophils % 89.2 H Lymphocytes % 5.4 L Monocytes % 4.4 Eosinophils % 0.2 Basophils % 0.2 Nucleated Red Blood 0.0 Cells % Immature 0.150 H Granulocytes # Neutrophils # 21.1 H Lymphocytes # 1.3 Monocytes # 1.0 H Eosinophils # 0.0 Basophils # 0.1 Nucleated Red Blood 0.0 Cells # Sodium Level 136 Potassium Level 4.2 Chloride Level 102 Carbon Dioxide Level 24 Anion Gap 10 Blood Urea Nitrogen 50 H Creatinine 1.39 H Est Glomerular Filtrat Rate mL/min Glucose Level 114 # Calcium Level 8.3 L Phosphorus Level 4.1 Magnesium Level 1.6 L Total Bilirubin 0.2 Direct Bilirubin 0.00 Indirect Bilirubin 0.2 Aspartate Amino 22 Transf (AST/SGOT) Alanine 20 Aminotransferase (AL T/SGPT) Alkaline Phosphatase 62 Total Protein 4.9 L Albumin 2.2 L Globulin 2.70 Albumin/Globulin 0.81 Ratio Medications Medication Current Medications Docusate Sodium (Colace) 100 mg BID PO Last administered on 01/21/19at 09:34; Admin Dose 100 MG; Start 01/17/19 at 18:17 Lactulose (Enulose) 20 gm DAILY PRN PO CONSTIPATION; Start 01/17/19 at 18:17 Acetaminophen (Tylenol Tab) 650 mg Q4H PRN PO PAIN Last administered on 01/21/19 09:47; Admin Dose 650 MG; Start 01/17/19 at 18:17 Miscellaneous Information (Pending [facility] Order For Wound Care) This patient ramirez... PRN PRN XX WOUND CARE; Start 01/17/19 at 18:17 Diagnostic Test (Pha) (Accu-Chek) 1 ea AC MEALS AND BEDTIME XX Last ad ministered on 01/20/19 21:28; Admin Dose 1 EA; Start 01/17/19 at 18:17 Diagnostic Test (Pha) (Accu-Chek) 1 ea 02 XX Last administered on 01/21/19 01:55; Admin Dose 1 EA; Start 01/17/19 at 18:17 Albuterol/ Ipratropium (Duoneb) 3 ml Q2H RESP THERAPY PRN HHN SHORTNESS OF BREATH; Start 01/17/19 at 18:17 Atorvastatin Calcium (Lipitor) 40 mg QHS PO Last administered on 01/20/19 21:27; Admin Dose 40 MG; Start 01/17/19 at 18:17 Bisacodyl (Dulcolax) 10 mg BID PRN PO CONSTIPATION; Start 01/17/19 at 18:17 Folic Acid (Folic Acid) 1 mg DAILY PO Last administered on 01/21/19 09:34; Admin Dose 1 MG; Start 01/17/19 at 18:17 Insulin Aspart (Novolog Insulin Pen) NOVOLOG *MILD* ALGORITHM WITH MEALS B EDTIME SC Last administered on 01/19/19 18:23; Admin Dose 1 UNIT; Start 01/17/19 at 18:17 Latanoprost (Xalatan) 1 drop HS BOTH EYES Last administered on 01/20/19 21:00; Admin Dose 1 DROP; Start 01/17/19 at 18:17 Levothyroxine Sodium (Synthroid) 125 mcg BEFORE BREAKFAST PO Last administered on 01/21/19 06:54; Admin Dose 125 MCG; Start 01/17/19 at 18:17 Metoprolol Tartrate (Lopressor) 50 mg BID PO Last administered on 4/30/19at 09:35; Admin Dose 50 MG; Start 01/17/19 at 18:17 Nitroglycerin (Nitroglycerin (Sl Tab) 0.4 Mg) 0.4 tab Q5M PRN SL CHEST PAIN; Start 01/17/19 at 18:17 Nystatin (Nystatin Powder) 1 applic BID TOP Last administered on 01/21/19at 09:37; Admin Dose 1 APPLIC; Start 01/17/19 at 18:17 Pantoprazole (Protonix Tab) 40 mg DAILY@06 PO Last administered on 01/21/19at 06:54; Admin Dose 40 MG; Start 01/17/19 at 18:17 IV Flush (NS 3 ml) 3 ml PER PROTOCOL IV ; Start 01/17/19 at 18:17 Terazosin HCl (Hytrin) 10 mg HS PO Last administered on 01/20/19at 21:27; Admin Dose 10 MG; Start 01/17/19 at 18:17 Miscellaneous Information 1 ea NOTE XX ; Start 01/17/19 at 18:17 Glucose (Glutose) 15 gm Q15M PRN PO DECREASED GLUCOSE; Start 01/17/19 at 18:17 Glucose (Glutose) 22.5 gm Q15M PRN PO DECREASED GLUCOSE; Start 01/17/19 at 18:17 Dextrose (D50w Syringe) 25 ml Q15M PRN IV DECREASED GLUCOSE; Start 01/17/19 at 18:17 Dextrose (D50w Syringe) 50 ml Q15M PRN IV DECREASED GLUCOSE; Start 01/17/19 at 18:17 Glucagon (Glucagen) 1 mg Q15M PRN IM DECREASED GLUCOSE; Start 01/17/19 at 18:17 Glucose (Glutose) 15 gm Q15M PRN BUCCAL DECREASED GLUCOSE; Start 01/17/19 at 18:17 Multivitamins Therapeutic (Theragran) 1 tab DAILY PO Last administered on 01/21/19at 09:34; Admin Dose 1 TAB; Start 01/17/19 at 18:17 Zinc Sulfate (Zinc Sulfate) 220 mg DAILY PO Last administered on 01/21/19 09:35; Admin Dose 220 MG; Start 01/17/19 at 18:17 Ascorbic Acid (Vitamin C) 250 mg DAILY PO Last administered on 01/21/19 09:34; Admin Dose 250 MG; Start 01/17/19 at 18:17 Albuterol/ Ipratropium (Duoneb) 3 ml Q6H RESP THERAPY HHN Last administered on 01/21/19 08:45; Admin Dose 3 ML; Start 01/17/19 at 18:17 Multi-Ingredient Ointment (Aquaphor Oint 52.5 Gm) 1 applic BID TOP Last administered on 01/21/19 09:37; Admin Dose 1 APPLIC; Start 01/17/19 at 18:17 Aspirin (Aspirin) 81 mg DAILY PO Last administered on 01/21/19 09:34; Admin Dose 81 MG; Start 01/17/19 at 18:17 Ferrous Sulfate (Ferrous Sulfate (Ec)) 325 mg WITH MEALS PO Last administered on 01/21/19 12:53; Admin Dose 325 MG; Start 01/17/19 at 18:17 Bisacodyl (Dulcolax Supp) 10 mg DAILY PRN CA CONSTIPATION; Start 01/17/19 at 1 8:17 Caspofungin 50 mg/ Sodium Chloride 250 ml @ 250 mls/hr Q24H IVPB Last administered on 01/20/19 18:12; Admin Dose 250 MLS/HR; Start 01/17/19 at 18:17 Ertapenem 1 gm/ Sodium Chloride 100 ml @ 200 mls/hr Q24H IVPB Last administered on 01/21/19 01:30; Admin Dose 200 MLS/HR; Start 01/17/19 at 23:30 Vancomycin HCl (Vanco Iv Per Pharmacy) VANCOMYCIN PER PHARMACY PER PROTOCOL XX ; Start 01/18/19 at 20:30 Zinc Acetate/ Diphenhydramine (Benadryl 2% Cr) 1 applic Q6H PRN TOP ITCHING; Start 01/19/19 at 16:37 Nystatin/ Triamcinolone Acetonide (Mycolog Cr) 1 applic BID TOP Last administered on 01/21/19 09:35; Admin Dose 1 APPLIC; Start 01/19/19 at 22:41 Dextrose 1,000 ml @ 40 mls/hr Q24H IV Last administered on 01/20/19 16:27; Admin Dose 40 MLS/HR; Start 01/20/19 at 06:30 Epoetin Dae-epbx (RETACRIT(non-esrd)) 20,000 unit Mo@1700 SC Last administered on 4/29/19at 18:13; Admin Dose 20,000 UNIT; Start 01/20/19 at 17:00 Furosemide (Lasix) 20 mg DAILY IV Last administered on 01/21/19at 09:47; Admin Dose 20 MG; Start 01/21/19 at 09:00 IV Flush (NS 10 ml) 10 ml PRN PRN IV IV PROTOCOL; Start 01/20/19 at 14:30 Cyanocobalamin (Vitamin B12 Inj) 1,000 mcg Q7D IM ; Start 02/03/19 at 09:00 Cyanocobalamin (Vitamin B12 Inj) 1,000 mcg DAILY IM Last administered on 01/21/19at 09:38; Admin Dose 1,000 MCG; Start 01/21/19 at 09:00; Stop 01/27/19 at 09:00 Vancomycin HCl 250 ml @ 125 mls/hr Q36H IVPB Last administered on 01/21/19at 12:53; Admin Dose 125 MLS/HR; Start 01/21/19 at 12:00 Magnesium Sulfate 50 ml @ 25 mls/hr ONCE ONCE IVPB ; Start 01/21/19 at 12:30; Stop 01/21/19 at 14:29 OREN MARSH M.D. Jan 21, 2019 13:33
--- NOTE | 2019-01-21 14:59 | CONS ---
Consult Date/Type/Reason Admit Date/Time Jan 17, 2019 at 15:58 Initial Consult Date Requesting Provider: IVAN AKHTAR MD Date/Time of Note DATE: 01/21/19 TIME: 14:57 Subjective NO acute events - hematology recs noted - no active CP now - still holding anti- coagulation. ROS: No fever, no chills, no nausea, no vomiting, no diarrhea/constipation - skin better now No recent weight changes No chest pain, no PND, no orthopnea No dizziness, blurred vision No thirst, no heat or cold intolerance Objective Vitals Vital Signs Date Temp Pulse Resp B/P (MAP) Pulse Ox O2 O2 Flow FiO2 Time Delivery Rate 01/21/19 84 18 100 Nasal 2.0 13:33 Cannula 01/21/19 98.0 152/69 11:27 (96) 01/18/19 21 09:23 Intake and Output 01/20/19 01/20/19 01/21/19 1515:00 23:00 07:00 IntakeIntake Total 120 ml 60 ml OutputOutput Total 400 ml 900 ml BalanceBalance -280 ml -840 ml Exam General: WN/WD/NAD, AOx 3 HEENT: Unicetric/atraumatic/EOMI (follows commands) NECK: JVD elevated, no thyromegaly Lymph: no lymphadenopathy HEART: regular with no S3, II/ systolic murmur at apex LUNGS: Coarse sounds ABD: soft, NT, ND, +BS : Intact Neuro: non focal SKIN: improved desquamation EXT: trace edema Results/Medications Result Diagram: 01/21/1933 01/21/19 0933 Results 24 hrs Laboratory Tests Test 01/20/19 17:14 01/20/19 20:54 01/20/19 23:19 01/21/19 01:47 Bedside Glucose 91 85 105 Vancomycin Level 21.6 *H Trough Test 01/21/19 07:54 01/21/19 09:33 01/21/19 12:19 Bedside Glucose 133 139 White Blood Count 23.6 H Red Blood Count 2.59 L Hemoglobin 7.6 L Hematocrit 23.8 L Mean Corpuscular 91.9 Volume Mean Corpuscular 29.3 Hemoglobin Mean Corpuscular 31.9 L Hemoglobin Concent Red Cell 17.4 H Distribution Width Platelet Count 304 Mean Platelet Volume 10.4 Immature 0.600 H Granulocytes % Neutrophils % 89.2 H Lymphocytes % 5.4 L Monocytes % 4.4 Eosinophils % 0.2 Basophils % 0.2 Nucleated Red Blood 0.0 Cells % Immature 0.150 H Granulocytes # Neutrophils # 21.1 H Lymphocytes # 1.3 Monocytes # 1.0 H Eosinophils # 0.0 Basophils # 0.1 Nucleated Red Blood 0.0 Cells # Sodium Level 136 Potassium Level 4.2 Chloride Level 102 Carbon Dioxide Level 24 Anion Gap 10 Blood Urea Nitrogen 50 H Creatinine 1.39 H Est Glomerular Filtrat Rate mL/min Glucose Level 114 # Calcium Level 8.3 L Phosphorus Level 4.1 Magnesium Level 1.6 L Total Bilirubin 0.2 Direct Bilirubin 0.00 Indirect Bilirubin 0.2 Aspartate Amino 22 Transf (AST/SGOT) Alanine 20 Aminotransferase (AL T/SGPT) Alkaline Phosphatase 62 Total Protein 4.9 L Albumin 2.2 L Globulin 2.70 Albumin/Globulin 0.81 Ratio Home Meds Active Scripts Apixaban* (Eliquis*) 5 Mg Tablet, 2.5 MG PO BID for 30 Days, TAB Prov:IVAN AKHTAR MD 12/20/18 Metoprolol Tartrate* (Lopressor*) 50 Mg Tab, 50 MG PO BID for 30 Days, TAB Prov:COOPER CARO 12/20/18 Reported Medications Furosemide* (Lasix*) 20 Mg Tablet, 20 MG PO BID, TAB 01/05/19 Polyethylene Glycol* (Miralax*) 17 Gm Powd.pack, 17 GM PO DAILY, #30 PACKET 12/15/18 Nifedipine* (Nifedipine ER*) 60 Mg Tablet.sa, 60 MG PO DAILY, TAB.SA 12/15/18 Bisacodyl* (Bisacodyl*) 5 Mg Tablet.dr, 10 MG PO BID PRN for CONSTIPATION, TAB 12/15/18 Pregabalin* (Lyrica*) 25 Mg Capsule, 25 MG PO TID, CAP 12/15/18 Bimatoprost* (Lumigan*) 0.01%-5 Ml Opht Drops, 1 DROP BOTH EYES HS, EA 03/02/18 Cetirizine Hcl* (Cetirizine Hcl*) 10 Mg Tablet, 10 MG PO DAILY, #30 TAB 03/02/18 Insulin Glargine* (Lantus*) 100 Unit/Ml Soln, 10 UNIT SC QHS, #1 VIAL 03/02/18 Ergocalciferol (Vitamin D2) (VITAMIN D2) 2,000 Unit Tablet, 2000 UNIT PO DAILY, TAB 03/02/18 Famotidine* (Famotidine*) 20 Mg Tablet, 20 MG PO DAILY, #30 TAB 03/02/18 Ferrous Sulfate* (Ferrous Sulfate*) 325 Mg Tabec, 325 MG PO BID, TAB 03/02/18 Nitroglycerin* (Nitrostat*) 0.4 Mg Tab.subl, 0.4 MG SL Q5MIN PRN for CHEST PAIN, BOTTLE 03/02/18 Terazosin Hcl* (Terazosin Hcl*) 10 Mg Capsule, 10 MG PO HS, CAP 03/02/18 Levothyroxine Sodium* (Levoxyl*) 125 Mcg Tablet, 125 MCG PO BEFORE BREAKFAST, #30 TAB 03/02/18 Allopurinol* (Allopurinol*) 100 Mg Tablet, 100 MG PO BID, TAB 03/02/18 Atorvastatin* (Atorvastatin*) 40 Mg Tablet, 40 MG PO QHS, #30 TAB 03/02/18 Folic Acid* (Folic Acid*) 1 Mg Tablet, 1 MG PO DAILY, TAB 03/02/18 Medications Current Medications Docusate Sodium (Colace) 100 mg BID PO Last administered on 01/21/19at 09:34; Admin Dose 100 MG; Start 01/17/19 at 18:17 Lactulose (Enulose) 20 gm DAILY PRN PO CONSTIPATION; Start 01/17/19 at 18:17 Acetaminophen (Tylenol Tab) 650 mg Q4H PRN PO PAIN Last administered on 01/21/19at 09:47; Admin Dose 650 MG; Start 01/17/19 at 18:17 Miscellaneous Information (Pending [facility] Order For Wound Care) This patient ramirez... PRN PRN XX WOUND CARE; Start 01/17/19 at 18:17 Diagnostic Test (Pha) (Accu-Chek) 1 ea AC MEALS AND BEDTIME XX Last administered on 01/20/19at 21:28; Admin Dose 1 EA; Start 01/17/19 at 18:17 Diagnostic Test (Pha) (Accu-Chek) 1 ea 02 XX Last administered on 01/21/19at 01:55; Admin Dose 1 EA; Start 01/17/19 at 18:17 Albuterol/ Ipratropium (Duoneb) 3 ml Q2H RESP THERAPY PRN HHN SHORTNESS OF BREATH; Start 01/17/19 at 18:17 Atorvastatin Calcium (Lipitor) 40 mg QHS PO Last administered on 01/20/19 21:27; Admin Dose 40 MG; Start 01/17/19 at 18:17 Bisacodyl (Dulcolax) 10 mg BID PRN PO CONSTIPATION; Start 01/17/19 at 18:17 Folic Acid (Folic Acid) 1 mg DAILY PO Last administered on 01/21/19 09:34; Admin Dose 1 MG; Start 01/17/19 at 18:17 Insulin Aspart (Novolog Insulin Pen) NOVOLOG *MILD* ALGORITHM WITH MEALS BEDTIME SC Last administered on 01/19/19 18:23; Admin Dose 1 UNIT; Start 01/17/19 at 18:17 Latanoprost (Xalatan) 1 drop HS BOTH EYES Last administered on 01/20/19 21:00; Admin Dose 1 DROP; Start 01/17/19 at 18:17 Levothyroxine Sodium (Synthroid) 125 mcg BEFORE BREAKFAST PO Last administered on 01/21/19 06:54; Admin Dose 125 MCG; Start 01/17/19 at 18:17 Metoprolol Tartrate (Lopressor) 50 mg BID PO Last administered on 01/21/19 09:35; Admin Dose 50 MG; Start 01/17/19 at 18:17 Nitroglycerin (Nitroglycerin (Sl Tab) 0.4 Mg) 0.4 tab Q5M PRN SL CHEST PAIN; Start 01/17/19 at 18:17 Nystatin (Nystatin Powder) 1 applic BID TOP Last administered on 01/21/19 09:37; Admin Dose 1 APPLIC; Start 01/17/19 at 18:17 Pantoprazole (Protonix Tab) 40 mg DAILY@06 PO Last administered on 01/21/19 06:54; Admin Dose 40 MG; Start 01/17/19 at 18:17 IV Flush (NS 3 ml) 3 ml PER PROTOCOL IV ; Start 01/17/19 at 18:17 Terazosin HCl (Hytrin) 10 mg HS PO Last administered on 01/20/19 21:27; Admin Dose 10 MG; Start 01/17/19 at 18:17 Miscellaneous Information 1 ea NOTE XX ; Start 01/17/19 at 18:17 Glucose (Glutose) 15 gm Q15M PRN PO DECREASED GLUCOSE; Start 01/17/19 at 18:17 Glucose (Glutose) 22.5 gm Q15M PRN PO DECREASED GLUCOSE; Start 01/17/19 at 18:17 Dextrose (D50w Syringe) 25 ml Q15M PRN IV DECREASED GLUCOSE; Start 01/17/19 at 18:17 Dextrose (D50w Syringe) 50 ml Q15M PRN IV DECREASED GLUCOSE; Start 01/17/19 at 18:17 Glucagon (Glucagen) 1 mg Q15M PRN IM DECREASED GLUCOSE; Start 01/17/19 at 18:17 Glucose (Glutose) 15 gm Q15M PRN BUCCAL DECREASED GLUCOSE; Start 01/17/19 at 18:17 Multivitamins Therapeutic (Theragran) 1 tab DAILY PO Last administered on 01/21/19 09:34; Admin Dose 1 TAB; Start 01/17/19 at 18:17 Zinc Sulfate (Zinc Sulfate) 220 mg DAILY PO Last administered on 01/21/19 09:35; Admin Dose 220 MG; Start 01/17/19 at 18:17 Ascorbic Acid (Vitamin C) 250 mg DAILY PO Last administered on 01/21/19 09:34; Admin Dose 250 MG; Start 01/17/19 at 18:17 Albuterol/ Ipratropium (Duoneb) 3 ml Q6H RESP THERAPY HHN Last administered on 01/21/19 13:23; Admin Dose 3 ML; Start 01/17/19 at 18:17 Multi-Ingredient Ointment (Aquaphor Oint 52.5 Gm) 1 applic BID TOP Last adm inistered on 01/21/19 09:37; Admin Dose 1 APPLIC; Start 01/17/19 at 18:17 Aspirin (Aspirin) 81 mg DAILY PO Last administered on 01/21/19 09:34; Admin Dose 81 MG; Start 01/17/19 at 18:17 Ferrous Sulfate (Ferrous Sulfate (Ec)) 325 mg WITH MEALS PO Last administered on 01/21/19 12:53; Admin Dose 325 MG; Start 01/17/19 at 18:17 Bisacodyl (Dulcolax Supp) 10 mg DAILY PRN [place] CONSTIPATION; Start 01/17/19 at 18:17 Caspofungin 50 mg/ Sodium Chloride 250 ml @ 250 mls/hr Q24H IVPB Last administered on 01/20/19at 18:12; Admin Dose 250 MLS/HR; Start 01/17/19 at 18:17 Ertapenem 1 gm/ Sodium Chloride 100 ml @ 200 mls/hr Q24H IVPB Last administered on 01/21/19 01:30; Admin Dose 200 MLS/HR; Start 01/17/19 at 23:30 Vancomycin HCl (Vanco Iv Per Pharmacy) VANCOMYCIN PER PHARMACY PER PROTOCOL XX ; Start 01/18/19 at 20:30 Zinc Acetate/ Diphenhydramine (Benadryl 2% Cr) 1 applic Q6H PRN TOP ITCHING; Start 01/19/19 at 16:37 Nystatin/ Triamcinolone Acetonide (Mycolog Cr) 1 applic BID TOP Last admini stered on 01/21/19at 09:35; Admin Dose 1 APPLIC; Start 01/19/19 at 22:41 Dextrose 1,000 ml @ 40 mls/hr Q24H IV Last administered on 01/20/19 16:27; Admin Dose 40 MLS/HR; Start 01/20/19 at 06:30 Epoetin Dae-epbx (RETACRIT(non-esrd)) 20,000 unit Mo@1700 SC Last administered on 01/20/19 18:13; Admin Dose 20,000 UNIT; Start 01/20/19 at 17:00 Furosemide (Lasix) 20 mg DAILY IV Last administered on 01/21/19at 09:47; Admin Dose 20 MG; Start 01/21/19 at 09:00 IV Flush (NS 10 ml) 10 ml PRN PRN IV IV PROTOCOL; Start 01/20/19 at 14:30 Cyanocobalamin (Vitamin B12 Inj) 1,000 mcg Q7D IM ; Start 02/03/19 at 09:00 Cyanocobalamin (Vitamin B12 Inj) 1,000 mcg DAILY IM Last administered on 01/21/19 09:38; Admin Dose 1,000 MCG; Start 01/21/19 at 09:00; Stop 01/27/19 at 09:00 Vancomycin HCl 250 ml @ 125 mls/hr Q36H IVPB Last administered on 01/21/19at 12:53; Admin Dose 125 MLS/HR; Start 01/21/19 at 12:00 Assessment/Plan Hospital Course (Demo Recall) 1. Atrial fibrillation, currently rate controlled.-off systemic anticoagulation due to anemia. On ASA only now - will defer to Melissa Robertson to resume Coumadin vs Eliquis. HELD now- hematology follows. 2. Possible congestive heart failure by chest x-ray, which will be diastolic, acute on chronic by most recent echo with an EF of 60%.Spot diuresis as needed. Con't to follow. Euvolemic by exam. 3. Tricuspid regurgitation, moderate by most recent echo. 4. Acute on chronic renal failure - Cr 1.39 - avoid nephrotoxic meds. Dr. Alatorre follow. Stable. 5. Possible pneumonia - on anti-bx now. ID follows 6. History of coronary artery disease, status post coronary artery bypass graft surgery. Treated. 7. Dyslipidemia. 8. Rheumatoid arthritis 9. Groin cellulitis. 10. Anemia-worsening again today requiring transfusions PRBC's.Now post-op s/p endoscopy ? findings - H/H at 7.5 - primary followes. 11. Diabetes mellitus. 12. Sepsis LOU PATINO MD Jan 21, 2019 14:59
--- NOTE | 2019-01-21 15:52 | CONS ---
Assessment/Plan Assessment/Plan Hospital Course (Demo Recall) Awake, looks comfortable, no fevers Renal ultrasound 2 days ago revealed no evidence of hydronephrosis Microbiology blood cultures repeated on January 17 grew coag negative staph suspicious of onset urine culture has been negative Antimicrobials: Vancomycin, Invanz Physical examination: Obese well-developed chronically ill-appearing - Citizen Of [place] man who is awake in no distress. Head atraumatic normocephalic sclera nonicteric. Neck is supple chest rise symmetrical breath sounds diminished bases. Heart: S1-S2. Abdomen obese soft bowel sounds present extremities without cyanosis, bilateral edema Assessment: 1. Systemic inflammatory response syndrome with ongoing leukocytosis 2. Status post pneumonia 3. Coronary artery disease/history of CABG 4. Advanced rheumatoid arthritis 5. Chronic atrial fibrillation 6. Diabetes 7. BPH 8. Coag negative staph bacteremia consistent with contaminant 9. Acute on chronic anemia===> s/p EGD/colonoscopy 01/09/19 10. Status post right epididymitis 11. Pancreatic lesion per CT, unlikely neoplasm per oncology notes Plan: Clinically unchanged, overall stable and afebrile, we will discontinue antibiotics and observe him, follow procalcitonin level, reculture if he spikes fever above 101 Consultation Date/Type/Reason Admit Date/Time Jan 17, 2019 at 15:58 Initial Consult Date 01/18/19 Type of Consult id Requesting Provider: IVAN AKHTAR MD Date/Time of Note DATE: 01/21/19 TIME: 15:49 Exam/Review of Systems Exam Vitals Vital Signs Date Temp Pulse Resp B/P (MAP) Pulse Ox O2 O2 Flow FiO2 Time Delivery Rate 01/21/19 84 18 100 Nasal 2.0 13:33 Cannula 01/21/19 98.0 152/69 11:27 (96) 01/18/19 21 09:23 Intake and Output 01/20/19 01/20/19 01/21/19 1515:00 23:00 07:00 IntakeIntake Total 120 ml 60 ml OutputOutput Total 400 ml 900 ml BalanceBalance -280 ml -840 ml Results Result Diagram: 01/21/1933 01/21/19 0933 Results 24hrs Laboratory Tests Test 01/20/19 17:14 01/20/19 20:54 01/20/19 23:19 01/21/19 01:47 Bedside Glucose 91 85 105 Vancomycin Level 21.6 *H Trough Test 01/21/19 07:54 01/21/19 09:33 01/21/19 12:19 Bedside Glucose 133 139 White Blood Count 23.6 H Red Blood Count 2.59 L Hemoglobin 7.6 L Hematocrit 23.8 L Mean Corpuscular 91.9 Volume Mean Corpuscular 29.3 Hemoglobin Mean Corpuscular 31.9 L Hemoglobin Concent Red Cell 17.4 H Distribution Width Platelet Count 304 Mean Platelet Volume 10.4 Immature 0.600 H Granulocytes % Neutrophils % 89.2 H Lymphocytes % 5.4 L Monocytes % 4.4 Eosinophils % 0.2 Basophils % 0.2 Nucleated Red Blood 0.0 Cells % Immature 0.150 H Granulocytes # Neutrophils # 21.1 H Lymphocytes # 1.3 Monocytes # 1.0 H Eosinophils # 0.0 Basophils # 0.1 Nucleated Red Blood 0.0 Cells # Sodium Level 136 Potassium Level 4.2 Chloride Level 102 Carbon Dioxide Level 24 Anion Gap 10 Blood Urea Nitrogen 50 H Creatinine 1.39 H Est Glomerular Filtrat Rate mL/min Glucose Level 114 # Calcium Level 8.3 L Phosphorus Level 4.1 Magnesium Level 1.6 L Total Bilirubin 0.2 Direct Bilirubin 0.00 Indirect Bilirubin 0.2 Aspartate Amino 22 Transf (AST/SGOT) Alanine 20 Aminotransferase (AL T/SGPT) Alkaline Phosphatase 62 Total Protein 4.9 L Albumin 2.2 L Globulin 2.70 Albumin/Globulin 0.81 Ratio Medications Medication Current Medications Docusate Sodium (Colace) 100 mg BID PO Last administered on 01/21/19at 09:34; Admin Dose 100 MG; Start 01/17/19 at 18:17 Lactulose (Enulose) 20 gm DAILY PRN PO CONSTIPATION; Start 01/17/19 at 18:17 Acetaminophen (Tylenol Tab) 650 mg Q4H PRN PO PAIN Last administered on at 09:47; Admin Dose 650 MG; Start 01/17/19 at 18:17 [facility] This patient ramirez... PRN PRN XX WOUND CARE; Start 01/17/19 at 18:17 Diagnostic Test (Pha) (Accu-Chek) 1 ea AC MEALS AND BEDTIME XX Last administered on 01/20/19at 21:28; Admin Dose 1 EA; Start 01/17/19 at 18:17 Diagnostic Test (Pha) (Accu-Chek) 1 ea 02 XX Last administered on 01/21/19 01:55; Admin Dose 1 EA; Start 01/17/19 at 18:17 Albuterol/ Ipratropium (Duoneb) 3 ml Q2H RESP THERAPY PRN HHN SHORTNESS OF BREATH; Start 01/17/19 at 18:17 Atorvastatin Calcium (Lipitor) 40 mg QHS PO Last administered on 01/20/19 21:27; Admin Dose 40 MG; Start 01/17/19 at 18:17 Bisacodyl (Dulcolax) 10 mg BID PRN PO CONSTIPATION; Start 01/17/19 at 18:17 Folic Acid (Folic Acid) 1 mg DAILY PO Last administered on 01/21/19 09:34; Admin Dose 1 MG; Start 01/17/19 at 18:17 Insulin Aspart (Novolog Insulin Pen) NOVOLOG *MILD* ALGORITHM WITH MEALS BEDTIME SC Last administered on 01/19/19 18:23; Admin Dose 1 UNIT; Start 01/17/19 at 18:17 Latanoprost (Xalatan) 1 drop HS BOTH EYES Last administered on 01/20/19 21:00; Admin Dose 1 DROP; Start 01/17/19 at 18:17 Levothyroxine Sodium (Synthroid) 125 mcg BEFORE BREAKFAST PO Last administered on 01/21/19 06:54; Admin Dose 125 MCG; Start 01/17/19 at 18:17 Metoprolol Tartrate (Lopressor) 50 mg BID PO Last administered on 01/21/19 0 9:35; Admin Dose 50 MG; Start 01/17/19 at 18:17 Nitroglycerin (Nitroglycerin (Sl Tab) 0.4 Mg) 0.4 tab Q5M PRN SL CHEST PAIN; Start 01/17/19 at 18:17 Nystatin (Nystatin Powder) 1 applic BID TOP Last administered on 01/21/19 09:37; Admin Dose 1 APPLIC; Start 01/17/19 at 18:17 Pantoprazole (Protonix Tab) 40 mg DAILY@06 PO Last administered on 01/21/19 06:54; Admin Dose 40 MG; Start 01/17/19 at 18:17 IV Flush (NS 3 ml) 3 ml PER PROTOCOL IV ; Start 01/17/19 at 18:17 Terazosin HCl (Hytrin) 10 mg HS PO Last administered on 01/20/19 21:27; Admin Dose 10 MG; Start 01/17/19 at 18:17 Miscellaneous Information 1 ea NOTE XX ; Start 01/17/19 at 18:17 Glucose (Glutose) 15 gm Q15M PRN PO DECREASED GLUCOSE; Start 01/17/19 at 18:17 Glucose (Glutose) 22.5 gm Q15M PRN PO DECREASED GLUCOSE; Start 01/17/19 at 18:17 Dextrose (D50w Syringe) 25 ml Q15M PRN IV DECREASED GLUCOSE; Start 01/17/19 at 18:17 Dextrose (D50w Syringe) 50 ml Q15M PRN IV DECREASED GLUCOSE; Start 01/17/19 at 18:17 Glucagon (Glucagen) 1 mg Q15M PRN IM DECREASED GLUCOSE; Start 01/17/19 at 18:17 Glucose (Glutose) 15 gm Q15M PRN BUCCAL DECREASED GLUCOSE; Start 01/17/19 at 18:17 Multivitamins Therapeutic (Theragran) 1 tab DAILY PO Last administered on 01/21/19 09:34; Admin Dose 1 TAB; Start 01/17/19 at 18:17 Zinc Sulfate (Zinc Sulfate) 220 mg DAILY PO Last administered on 01/21/19 09:35; Admin Dose 220 MG; Start 01/17/19 at 18:17 Ascorbic Acid (Vitamin C) 250 mg DAILY PO Last administered on 01/21/19 09:34; Admin Dose 250 MG; Start 01/17/19 at 18:17 Albuterol/ Ipratropium (Duoneb) 3 ml Q6H RESP THERAPY HHN Last administered on 01/21/19 13:23; Admin Dose 3 ML; Start 01/17/19 at 18:17 Multi-Ingredient Ointment (Aquaphor Oint 52.5 Gm) 1 applic BID TOP Last administered on 01/21/19 09:37; Admin Dose 1 APPLIC; Start 01/17/19 at 18:17 Aspirin (Aspirin) 81 mg DAILY PO Last administered on 01/21/19 09:34; Admin Dose 81 MG; Start 01/17/19 at 18:17 Ferrous Sulfate (Ferrous Sulfate (Ec)) 325 mg WITH MEALS PO Last administered on 01/21/19 12:53; Admin Dose 325 MG; Start 01/17/19 at 18:17 Bisacodyl (Dulcolax Supp) 10 mg DAILY PRN [place] CONSTIPATION; Start 01/17/19 at 18:17 Caspofungin 50 mg/ Sodium Chloride 250 ml @ 250 mls/hr Q24H IVPB Last administered on 01/20/19at 18:12; Admin Dose 250 MLS/HR; Start 01/17/19 at 18:17 Ertapenem 1 gm/ Sodium Chloride 100 ml @ 200 mls/hr Q24H IVPB Last administered on 01/21/19 01:30; Admin Dose 200 MLS/HR; Start 01/17/19 at 23:30 Vancomycin HCl (Vanco Iv Per Pharmacy) VANCOMYCIN PER PHARMACY PER PROTOCOL XX ; Start 01/18/19 at 20:30 Zinc Acetate/ Diphenhydramine (Benadryl 2% Cr) 1 applic Q6H PRN TOP ITCHING; Start 01/19/19 at 16:37 Nystatin/ Triamcinolone Acetonide (Mycolog Cr) 1 applic BID TOP Last administered on 01/21/19 09:35; Admin Dose 1 APPLIC; Start 01/19/19 at 22:41 Dextrose 1,000 ml @ 40 mls/hr Q24H IV Last administered on 01/20/19 16:27; Admin Dose 40 MLS/HR; Start 01/20/19 at 06:30 Epoetin Dae-epbx (RETACRIT(non-esrd)) 20,000 unit Mo@1700 SC Last administered on 01/20/19at 18:13; Admin Dose 20,000 UNIT; Start 01/20/19 at 17:00 Furosemide (Lasix) 20 mg DAILY IV Last administered on 01/21/19 09:47; Admin Dose 20 MG; Start 01/21/19 at 09:00 IV Flush (NS 10 ml) 10 ml PRN PRN IV IV PROTOCOL; Start 01/20/19 at 14:30 Cyanocobalamin (Vitamin B12 Inj) 1,000 mcg Q7D IM ; Start 02/03/19 at 09:00 Cyanocobalamin (Vitamin B12 Inj) 1,000 mcg DAILY IM Last administered on 01/21/19at 09:38; Admin Dose 1,000 MCG; Start 01/21/19 at 09:00; Stop 01/27/19 at 09:00 Vancomycin HCl 250 ml @ 125 mls/hr Q36H IVPB Last administered on 01/21/19at 1 2:53; Admin Dose 125 MLS/HR; Start 01/21/19 at 12:00 LUCIAN HARKINS NP Jan 21, 2019 15:52
[2019-01-21] MEDS: CASPOFUNGIN 50 MG in SOD CHLORIDE 0.9% 250 ML IVPB SCH (18:21)
[2019-01-21] MEDS: ATORVASTATIN 40 MG TAB PO SCH (20:23)
[2019-01-21] MEDS: LATANOPROST 0.005% 2.5 ML OPH BOTH EYES SCH (20:31)
[2019-01-21] MEDS: TERAZOSIN 5 MG CAP PO SCH (20:33)
[2019-01-22] VITALS (10 sets, daily range): BP systolic 121–145; BP diastolic 60–80; PULSE 18–110; RESP 18–22
[2019-01-22] MEDS: ACCU-CHEK XX SCH ×5 (02:00→21:21)
[2019-01-22] MEDS: DEXTROSE 5% 1,000 ML IV SCH (02:39)
[2019-01-22] MEDS: ALBUTEROL/IPRATROPIUM (NEB) 3 ML AMP HHN SCH ×4 (02:50→19:41)
[2019-01-22] MEDS: ACETAMINOPHEN 325 MG TAB PO PRN (05:02)
[2019-01-22] MEDS: PANTOPRAZOLE (EC) 40 MG TAB PO SCH (05:02)
[2019-01-22] MEDS: LEVOTHYROXINE 125 MCG TAB PO SCH (07:57)
[2019-01-22] MEDS: FERROUS SULFATE (EC) 325 MG TAB PO SCH ×3 (07:57→17:51)
[2019-01-22] MEDS: INSULIN ASPART [NOVOLOG] 3 ML PEN SC SCH ×4 (08:08→21:00)
[2019-01-22] MEDS: ZINC SULFATE 220 MG CAP PO SCH (09:00)
[2019-01-22] MEDS: ASCORBIC ACID 250 MG TAB PO SCH (09:00)
[2019-01-22] MEDS: ASPIRIN 81 MG TAB PO SCH (09:00)
[2019-01-22] MEDS: NYSTATIN/TRIAMCINOLONE 15 GM CR TOP SCH ×2 (09:00→21:21)
[2019-01-22] MEDS: FUROSEMIDE 20 MG INJ IV SCH (09:00)
[2019-01-22] MEDS: DOCUSATE SODIUM 100 MG CAP PO SCH ×2 (09:00→21:00)
[2019-01-22] MEDS: CYANOCOBALAMIN 1000 MCG INJ IM SCH (09:00)
[2019-01-22] MEDS: AQUAPHOR 52.5 GM OINT TOP SCH ×2 (09:00→21:21)
[2019-01-22] MEDS: FOLIC ACID 1 MG TAB PO SCH (09:00)
[2019-01-22] MEDS: MULTIVITAMINS THERAPEUTIC TAB PO SCH (09:00)
[2019-01-22] MEDS: METOPROLOL 50 MG TAB PO SCH ×2 (09:00→21:00)
--- NOTE | 2019-01-22 09:57 | PN ---
Date/Time of Note Date/Time of Note DATE: 01/22/19 TIME: 09:57 Assessment/Plan VTE Prophylaxis Risk score (from Ns)>0 risk: 6 SCD applied (from [facility] [place] Yes Pharmacological prophylaxis: NA/contraindicated Pharm contraindication: low risk/ambulating Lines/Catheters IV Catheter Type (from [facility]): Peripheral IV Urinary Cath still in place: Yes Reason Cath still needed: urinary retention Assessment/Plan Assessment/Plan ospital Course 1. Sepsis, WBC elevated , lactic acidosis WITH WBC 24 >22 2. Severe anemia? multifactorial L iron versus vitamin B12 versus anemia of chronic disease 3. Acute on chronic renal failure chronic renal failure likely secondary to sepsis 4. Hypertension. 5. Hyperlipidemia. 6. Hypothyroidism. 7. Normocytic normochromic chronic anemia with recent hemoglobin drop. 8. Bilateral groin cellulitis more likely associated with mateus, patches in groin and axilla bilaterally. Back rash 9. History of rheumatoid arthritis with joint deformities. 10. Diabetes type 2. 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 Peripheral vascular disease. 13. Chronic a.fib 14. right arm edema 15. Neoplasm per CT abdomen. 4.3 cm cystic lesion along the pancreas body, enlarged since 10/10/2012 (previously 2.4 cm). 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 Possible allergic skin reaction 17 altered mental status delirium vs stroke Assessment/Plan - stat ct head, code stroke activated - check stat labs, ekg, trop, ammonia - neurology consulted -WBC high, on IV antibiotics per ID no source yet though - iv caspofungin - neuro check -cw on Epogen per oncology -oncology consul dr Lorenzo aware:he said Ca 19-9 is negative indicating unlikely malignant. This may be a pseudocyst or a precancerous pancreatic lesion. It has been growing in size but patient is asymptomatic. EUS with biopsy is recommended and can either be done inpatient or outpatient setting. The patient at this time is unlikely a candidate for a Whipple surgery however. -skin care -transfuse hemoglobin less than 7 -IV Lasix spoke to tara at bedside Result Diagram: 01/22/19 0608 01/22/19 0608 Results 24hrs Laboratory Tests Test 01/21/19 12:19 01/21/19 17:08 01/21/19 20:38 01/22/19 03:11 Bedside Glucose 139 175 203 185 Test 01/22/19 06:08 01/22/19 07:53 01/22/19 09:30 01/22/19 09:35 White Blood Count 22.6 H Red Blood Count 2.69 L Hemoglobin 7.8 L Hematocrit 24.3 L Mean Corpuscular 90.3 Volume Mean Corpuscular 29.0 Hemoglobin Mean Corpuscular 32.1 Hemoglobin Concen t Red Cell 17.3 H Distribution Width Platelet Count 291 Mean Platelet 10.2 Volume Immature 1.100 H Granulocytes % Neutrophils % 88.7 H Lymphocytes % 4.5 L Monocytes % 5.4 Eosinophils % 0.1 Basophils % 0.2 Nucleated Red 0.0 Blood Cells % Immature 0.240 H Granulocytes # Neutrophils # 20.1 H Lymphocytes # 1.0 Monocytes # 1.2 H Eosinophils # 0.0 Basophils # 0.1 Nucleated Red 0.0 Blood Cells # Sodium Level 135 Potassium Level 4.5 Chloride Level 102 Carbon Dioxide 24 Level Anion Gap 9 Blood Urea 44 H Nitrogen Creatinine 1.37 H Est Glomerular Filtrat Rate mL/min Glucose Level 154 Calcium Level 8.4 Phosphorus Level 3.7 Magnesium Level 2.1 Bedside Glucose 165 180 Blood Gas Blood arterial Specimen Source Arterial Blood 01/22/2019 9:40:38 Date Drawn AM Arterial Blood pH 7.324 L (Temp corrected) Arterial Blood 44.2 pCO2 (Temp correct) Arterial Blood 137.0 H pO2 (Temp corrected) Arterial Blood 22.5 HCO3 Arterial Blood -3.4 L Base Excess Arterial Blood 98.5 Oxygen Saturation Manuel Test ACCEPTAB Arterial Blood Left Radial Gas Puncture Site Arterial 0.3 Blood Carboxyhemo globin Arterial Blood 0.4 Methemoglobin Blood Gas A-a O2 46.7 H Differential Oxyhemoglobin 97.8 Percent Blood Gas 37.0 Temperature Blood Gas NASAL CANNULA Modality FiO2 33.0 Blood Gas TM Notified Whom Blood Gas 01/22/2019 9:49:14 Notified Time AM Subjective 24 Hr Interval Summary Free Text/Dictation pt was altered this am around 9,30 this am, before that per nursing staff was seen at 7.30 which he was following commands code stroke activated fs > 100, VS stable, pt able to maintain airway Exam/Review of Systems Exam Vitals Vital Signs Date Temp Pulse Resp B/P (MAP) Pulse Ox O2 O2 Flow FiO2 Time Delivery Rate 01/22/19 88 16 100 Nasal 2.0 08:29 Cannula 01/22/19 97.2 121/70 07:35 (87) 01/18/19 21 09:23 Intake and Output 01/21/19 01/21/19 01/22/19 1515:00 23:00 07:00 IntakeIntake Total 690 ml 900 ml 200 ml OutputOutput Total 1200 ml 500 ml BalanceBalance 690 ml -300 ml -300 ml Exam xam onstitutional: unresponsive Head: normocephalic Eyes: nl conjunctiva ENMT: nl external ears & nose Cardiovascular: regular rate and rhythm Gastrointestinal: soft Genitourinary - Male: other (rinaldi) Skin: other (severe redness of skin) sloughing of the skin drug rash ? Swelling of the legs abdominal distention Results Results 24hrs Laboratory Tests Test 01/21/19 12:19 01/21/19 17:08 01/21/19 20:38 01/22/19 03:11 Bedside Glucose 139 175 203 185 Test 01/22/19 06:08 01/22/19 07:53 01/22/19 09:30 01/22/19 09:35 White Blood Count 22.6 H Red Blood Count 2.69 L Hemoglobin 7.8 L Hematocrit 24.3 L Mean Corpuscular 90.3 Volume Mean Corpuscular 29.0 Hemoglobin Mean Corpuscular 32.1 Hemoglobin Concen t Red Cell 17.3 H Distribution Width Platelet Count 291 Mean Platelet 10.2 Volume Immature 1.100 H Granulocytes % Neutrophils % 88.7 H Lymphocytes % 4.5 L Monocytes % 5.4 Eosinophils % 0.1 Basophils % 0.2 Nucleated Red 0.0 Blood Cells % Immature 0.240 H Granulocytes # Neutrophils # 20.1 H Lymphocytes # 1.0 Monocytes # 1.2 H Eosinophils # 0.0 Basophils # 0.1 Nucleated Red 0.0 Blood Cells # Sodium Level 135 Potassium Level 4.5 Chloride Level 102 Carbon Dioxide 24 Level Anion Gap 9 Blood Urea 44 H Nitrogen Creatinine 1.37 H Est Glomerular Filtrat Rate mL/min Glucose Level 154 Calcium Level 8.4 Phosphorus Level 3.7 Magnesium Level 2.1 Bedside Glucose 165 180 Blood Gas Blood arterial Specimen Source Arterial Blood 01/22/2019 9:40:38 Date Drawn AM Arterial Blood pH 7.324 L (Temp corrected) Arterial Blood 44.2 pCO2 (Temp correct) Arterial Blood 137.0 H pO2 (Temp corrected) Arterial Blood 22.5 HCO3 Arterial Blood -3.4 L Base Excess Arterial Blood 98.5 Oxygen Saturation Manuel Test ACCEPTAB Arterial Blood Left Radial Gas Puncture Site Arterial 0.3 Blood Carboxyhemo globin Arterial Blood 0.4 Methemoglobin Blood Gas A-a O2 46.7 H Differential Oxyhemoglobin 97.8 Percent Blood Gas 37.0 Temperature Blood Gas NASAL CANNULA Modality FiO2 33.0 Blood Gas TM Notified Whom Blood Gas 01/22/2019 9:49:14 Notified Time AM Medications Medication Current Medications Docusate Sodium (Colace) 100 mg BID PO Last administered on 01/21/19 20:24; Admin Dose 100 MG; Start 01/17/19 at 18:17 Lactulose (Enulose) 20 gm DAILY PRN PO CONSTIPATION; Start 01/17/19 at 18:17 Acetaminophen (Tylenol Tab) 650 mg Q4H PRN PO PAIN Last administered on 01/22/19 05:02; Admin Dose 650 MG; Start 01/17/19 at 18:17 [facility] This patient ramirez... PRN PRN XX WOUND CARE; Start 01/17/19 at 18:17 Diagnostic Test (Pha) (Accu-Chek) 1 ea AC MEALS AND BEDTIME XX Last administered on 01/22/19 07:53; Admin Dose 1 EA; Start 01/17/19 at 18:17 Diagnostic Test (Pha) (Accu-Chek) 1 ea 02 XX Last administered on 01/22/19at 02:00; Admin Dose 1 EA; Start 01/17/19 at 18:17 Albuterol/ Ipratropium (Duoneb) 3 ml Q2H RESP THERAPY PRN HHN SHORTNESS OF BREATH; Start 01/17/19 at 18:17 Atorvastatin Calcium (Lipitor) 40 mg QHS PO Last administered on 01/21/19 20:23; Admin Dose 40 MG; Start 01/17/19 at 18:17 Bisacodyl (Dulcolax) 10 mg BID PRN PO CONSTIPATION; Start 01/17/19 at 18:17 Folic Acid (Folic Acid) 1 mg DAILY PO Last administered on 01/21/19 09:34; Admin Dose 1 MG; Start 01/17/19 at 18:17 Insulin Aspart (Novolog Insulin Pen) NOVOLOG *MILD* ALGORITHM WITH MEALS BEDTIME SC Last administered on 01/22/19at 08:08; Admin Dose 1 UNIT; Start 01/17/19 at 18:17 Latanoprost (Xalatan) 1 drop HS BOTH EYES Last administered on 01/21/19at 20:31; Admin Dose 1 DROP; Start 01/17/19 at 18:17 Levothyroxine Sodium (Synthroid) 125 mcg BEFORE BREAKFAST PO Last administered on 01/22/19at 07:57; Admin Dose 125 MCG; Start 01/17/19 at 18:17 Metoprolol Tartrate (Lopressor) 50 mg BID PO Last administered on 01/21/19at 20:32; Admin Dose 50 MG; Start 01/17/19 at 18:17 Nitroglycerin (Nitroglycerin (Sl Tab) 0.4 Mg) 0.4 tab Q5M PRN SL CHEST PAIN; Start 01/17/19 at 18:17 Nystatin (Nystatin Powder) 1 applic BID TOP Last administered on 01/21/19at 20:25; Admin Dose 1 APPLIC; Start 01/17/19 at 18:17 Pantoprazole (Protonix Tab) 40 mg DAILY@06 PO Last administered on 01/22/19at 05:02; Admin Dose 40 MG; Start 01/17/19 at 18:17 IV Flush (NS 3 ml) 3 ml PER PROTOCOL IV ; Start 01/17/19 at 18:17 Terazosin HCl (Hytrin) 10 mg HS PO Last administered on 01/21/19at 20:33; Admin Dose 10 MG; Start 01/17/19 at 18:17 Miscellaneous Information 1 ea NOTE XX ; Start 01/17/19 at 18:17 Glucose (Glutose) 15 gm Q15M PRN PO DECREASED GLUCOSE; Start 01/17/19 at 18:17 Glucose (Glutose) 22.5 gm Q15M PRN PO DECREASED GLUCOSE; Start 01/17/19 at 18:17 Dextrose (D50w Syringe) 25 ml Q15M PRN IV DECREASED GLUCOSE; Start 01/17/19 at 18:17 Dextrose (D50w Syringe) 50 ml Q15M PRN IV DECREASED GLUCOSE; Start 01/17/19 at 18:17 Glucagon (Glucagen) 1 mg Q15M PRN IM DECREASED GLUCOSE; Start 01/17/19 at 18:17 Glucose (Glutose) 15 gm Q15M PRN BUCCAL DECREASED GLUCOSE; Start 01/17/19 at 18:17 Multivitamins Therapeutic (Theragran) 1 tab DAILY PO Last administered on 01/21/19 09:34; Admin Dose 1 TAB; Start 01/17/19 at 18:17 Zinc Sulfate (Zinc Sulfate) 220 mg DAILY PO Last administered on 01/21/19 09:35; Admin Dose 220 MG; Start 01/17/19 at 18:17 Ascorbic Acid (Vitamin C) 250 mg DAILY PO Last administered on 01/21/19 09:34; Admin Dose 250 MG; Start 01/17/19 at 18:17 Albuterol/ Ipratropium (Duoneb) 3 ml Q6H RESP THERAPY HHN Last administered on 01/22/19 08:29; Admin Dose 3 ML; Start 01/17/19 at 18:17 Multi-Ingredient Ointment (Aquaphor Oint 52.5 Gm) 1 applic BID TOP Last administered on 01/21/19 20:53; Admin Dose 1 APPLIC; Start 01/17/19 at 18:17 Aspirin (Aspirin) 81 mg DAILY PO Last administered on 01/21/19 09:34; Admin Dose 81 MG; Start 01/17/19 at 18:17 Ferrous Sulfate (Ferrous Sulfate (Ec)) 325 mg WITH MEALS PO Last administered on 01/22/19 07:57; Admin Dose 325 MG; Start 01/17/19 at 18:17 Bisacodyl (Dulcolax Supp) 10 mg DAILY PRN [place] CONSTIPATION; Start 01/17/19 at 18:17 Caspofungin 50 mg/ Sodium Chloride 250 ml @ 250 mls/hr Q24H IVPB Last administered on 01/21/19 18:21; Admin Dose 250 MLS/HR; Start 01/17/19 at 18:17 Zinc Acetate/ Diphenhydramine (Benadryl 2% Cr) 1 applic Q6H PRN TOP ITCHING; Start 01/19/19 at 16:37 Nystatin/ Triamcinolone Acetonide (Mycolog Cr) 1 applic BID TOP Last administered on 01/21/19 20:25; Admin Dose 1 APPLIC; Start 01/19/19 at 22:41 Dextrose 1,000 ml @ 40 mls/hr Q24H IV Last administered on 01/22/19at 02:39; Admin Dose 40 MLS/HR; Start 01/20/19 at 06:30 Epoetin Dae-epbx (RETACRIT(non-esrd)) 20,000 unit Mo@1700 SC Last administered on 01/20/19at 18:13; Admin Dose 20,000 UNIT; Start 01/20/19 at 17:00 Furosemide (Lasix) 20 mg DAILY IV Last administered on 01/21/19at 09:47; Admin Dose 20 MG; Start 01/21/19 at 09:00 IV Flush (NS 10 ml) 10 ml PRN PRN IV IV PROTOCOL; Start 01/20/19 at 14:30 Cyanocobalamin (Vitamin B12 Inj) 1,000 mcg Q7D IM ; Start 02/03/19 at 09:00 Cyanocobalamin (Vitamin B12 Inj) 1,000 mcg DAILY IM Last administered on 01/21/19at 09:38; Admin Dose 1,000 MCG; Start 01/21/19 at 09:00; Stop 01/27/19 at 09:00 IVAN AKHTAR MD January 22, 2019 09:57
--- NOTE | 2019-01-22 10:52 | CONS ---
Assessment/Plan Assessment/Plan Hospital Course (Demo Recall) 88 yo male with multiple medical problems including DM, CRF, RA, PVD and chronic afib on Eliquis who presented to [facility] 01/[facility]/19 with severe normocytic anemia and Hg ~7. 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 # Anemia-normocytic -Multifactorial at this time due to iron deficiency, vitamin b12 deficiency and also likely anemia of chronic kidney disease and inflammation. Elevated Methylmalonic acid level noted -Patient still has low iron level even though ferritin is elevated. Ferritin likely elevated due to acute phase reactant. -Instead po iron may need IV iron as patient has severe atrophic gastritis which may be causing absorption issues. -continue vitamin b12 weekly as vitamin b12 was low normal and methylmalonic acid was elevated. Continue folate as well. -No evidence of hemolysis at this time. -Transfuse to keep Hgb > 7. -will continue procrit 16200 units weekly at this time # Pancreatic cystic mass -Ca 19-9 is negative indicating unlikely malignant. -This may be a pseudocyst or a precancerous pancreatic lesion. -It has been growing in size but patient is asymptomatic. EUS with biopsy is recommended and can either be done inpatient or oupatient setting. -The patient at this time is unlikely a candidate for a whipple surgery however. Thank you to Dr. Alatorre for allowing [facility] to participate in the care of this patient. A total of 40 minutes was spent in consultation with this patient and all his questions were answered. Consultation Date/Type/Reason Admit Date/Time Jan 17, 2019 at 15:58 Initial Consult Date 01/18/19 Type of Consult hematology Reason for Consultation anemia Requesting Provider: IVAN AKHTAR MD Date/Time of Note DATE: 01/22/19 TIME: 10:50 24 HR Interval Summary Free Text/Dictation no acute overnight events Exam/Review of Systems Exam Vitals Vital Signs Date Temp Pulse Resp B/P (MAP) Pulse Ox O2 O2 Flow FiO2 Time Delivery Rate 01/22/19 88 16 100 Nasal 2.0 08:29 Cannula 01/22/19 97.2 121/70 07:35 (87) 01/18/19 21 09:23 Intake and Output 01/21/19 01/21/19 01/22/19 1515:00 23:00 07:00 IntakeIntake Total 690 ml 900 ml 200 ml OutputOutput Total 1200 ml 500 ml BalanceBalance 690 ml -300 ml -300 ml Constitutional: alert, distress, frail Psych: anxiety, depression Head: normocephalic Eyes: nl conjunctiva ENMT: nl external ears & nose Neck: supple Respiratory: clear to auscultation Cardiovascular: regular rate and rhythm Gastrointestinal: soft Musculoskeletal: nl extremities to inspection Results Result Diagram: 01/22/19 0957 01/22/19 0957 Results 24hrs Laboratory Tests Test 01/21/19 12:19 01/21/19 17:08 01/21/19 20:38 01/22/19 03:11 Bedside Glucose 139 175 203 185 Test 01/22/19 06:08 01/22/19 07:53 01/22/19 09:30 01/22/19 09:35 White Blood Count 22.6 H Red Blood Count 2.69 L Hemoglobin 7.8 L Hematocrit 24.3 L Mean Corpuscular 90.3 Volume Mean Corpuscular 29.0 Hemoglobin Mean Corpuscular 32.1 Hemoglobin Concen t Red Cell 17.3 H Distribution Width Platelet Count 291 Mean Platelet 10.2 Volume Immature 1.100 H Granulocytes % Neutrophils % 88.7 H Lymphocytes % 4.5 L Monocytes % 5.4 Eosinophils % 0.1 Basophils % 0.2 Nucleated Red 0.0 Blood Cells % Immature 0.240 H Granulocytes # Neutrophils # 20.1 H Lymphocytes # 1.0 Monocytes # 1.2 H Eosinophils # 0.0 Basophils # 0.1 Nucleated Red 0.0 Blood Cells # Sodium Level 135 Potassium Level 4.5 Chloride Level 102 Carbon Dioxide 24 Level Anion Gap 9 Blood Urea 44 H Nitrogen Creatinine 1.37 H Est Glomerular Filtrat Rate mL/min Glucose Level 154 Calcium Level 8.4 Phosphorus Level 3.7 Magnesium Level 2.1 Bedside Glucose 165 180 Blood Gas Blood arterial Specimen Source Arterial Blood 01/22/2019 9:40:38 Date Drawn AM Arterial Blood pH 7.324 L (Temp corrected) Arterial Blood 44.2 pCO2 (Temp correct) Arterial Blood 137.0 H pO2 (Temp corrected) Arterial Blood 22.5 HCO3 Arterial Blood -3.4 L Base Excess Arterial Blood 98.5 Oxygen Saturation Manuel Test ACCEPTAB Arterial Blood Left Radial Gas Puncture Site Arterial 0.3 Blood Carboxyhemo globin Arterial Blood 0.4 Methemoglobin Blood Gas A-a O2 46.7 H Differential Oxyhemoglobin 97.8 Percent Blood Gas 37.0 Temperature Blood Gas NASAL CANNULA Modality FiO2 33.0 Blood Gas TM Notified Whom Blood Gas 01/22/2019 9:49:14 Notified Time AM Test 01/22/19 09:57 White Blood Count 23.5 H Red Blood Count 2.69 L Hemoglobin 8.0 L Hematocrit 24.6 L Mean Corpuscular 91.4 Volume Mean Corpuscular 29.7 Hemoglobin Mean Corpuscular 32.5 Hemoglobin Concen t Red Cell 17.6 H Distribution Width Platelet Count 272 Mean Platelet 9.8 Volume Immature 0.900 H Granulocytes % Neutrophils % 88.4 H Lymphocytes % 5.2 L Monocytes % 5.4 Eosinophils % 0.0 Basophils % 0.1 Nucleated Red 0.0 Blood Cells % Immature 0.210 H Granulocytes # Neutrophils # 20.7 H Lymphocytes # 1.2 Monocytes # 1.3 H Eosinophils # 0.0 Basophils # 0.0 Nucleated Red 0.0 Blood Cells # Prothrombin Time 20.7 H Prothrombin Time 1.6 Ratio INR International 1.77 Normalized Ratio Activated 37.9 H Partial Thrombopl ast Time Sodium Level 135 Potassium Level 4.5 Chloride Level 103 Carbon Dioxide 23 Level Anion Gap 9 Blood Urea 44 H Nitrogen Creatinine 1.35 H Est Glomerular Filtrat Rate mL/min Glucose Level 158 Hemoglobin A1c 5.4 Calcium Level 8.5 Total Bilirubin 0.3 Direct Bilirubin 0.00 Indirect 0.3 Bilirubin Aspartate Amino 10 #L Transf (AST/SGOT) Alanine 19 Aminotransferase (ALT/SGPT) Alkaline 60 Phosphatase Creatine Kinase < 20 L Creatine Kinase Pending Index Creatinine Kinase Pending MB (Mass) Troponin I Pending Total Protein 4.7 L Albumin 2.1 L Globulin 2.60 Albumin/Globulin 0.80 Ratio Triglycerides Pending Level Cholesterol Level < 50 L LDL Cholesterol, Pending Calculated HDL Cholesterol 18 L Cholesterol/HDL Ratio Medications Medication Current Medications Docusate Sodium (Colace) 100 mg BID PO Last administered on 01/21/19at 20:24; Admin Dose 100 MG; Start 01/17/19 at 18:17 Lactulose (Enulose) 20 gm DAILY PRN PO CONSTIPATION; Start 01/17/19 at 18:17 Acetaminophen (Tylenol Tab) 650 mg Q4H PRN PO PAIN Last administered on 01/22/19at 05:02; Admin Dose 650 MG; Start 01/17/19 at 18:17 [facility] This patient ramirez... PRN PRN XX WOUND CARE; Start 01/17/19 at 18:17 Diagnostic Test (Pha) (Accu-Chek) 1 ea AC MEALS AND BEDTIME XX Last administered on 01/22/19 07:53; Admin Dose 1 EA; Start 01/17/19 at 18:17 Diagnostic Test (Pha) (Accu-Chek) 1 ea 02 XX Last administered on 01/22/19 02:00; Admin Dose 1 EA; Start 01/17/19 at 18:17 Albuterol/ Ipratropium (Duoneb) 3 ml Q2H RESP THERAPY PRN HHN SHORTNESS OF BR EATH; Start 01/17/19 at 18:17 Atorvastatin Calcium (Lipitor) 40 mg QHS PO Last administered on 01/21/19 20:23; Admin Dose 40 MG; Start 01/17/19 at 18:17 Bisacodyl (Dulcolax) 10 mg BID PRN PO CONSTIPATION; Start 01/17/19 at 18:17 Folic Acid (Folic Acid) 1 mg DAILY PO Last administered on 01/21/19 09:34; Admin Dose 1 MG; Start 01/17/19 at 18:17 Insulin Aspart (Novolog Insulin Pen) NOVOLOG *MILD* ALGORITHM WITH MEALS BEDTIME SC Last administered on 01/22/19 08:08; Admin Dose 1 UNIT; Start at 18:17 Latanoprost (Xalatan) 1 drop HS BOTH EYES Last administered on 01/21/19 20:31; Admin Dose 1 DROP; Start 01/17/19 at 18:17 Levothyroxine Sodium (Synthroid) 125 mcg BEFORE BREAKFAST PO Last administered on 01/22/19 07:57; Admin Dose 125 MCG; Start 01/17/19 at 18:17 Metoprolol Tartrate (Lopressor) 50 mg BID PO Last administered on 01/21/19 20:32; Admin Dose 50 MG; Start 01/17/19 at 18:17 Nitroglycerin (Nitroglycerin (Sl Tab) 0.4 Mg) 0.4 tab Q5M PRN SL CHEST PAIN; Start 01/17/19 at 18:17 Nystatin (Nystatin Powder) 1 applic BID TOP Last administered on 01/21/19at 20:25; Admin Dose 1 APPLIC; Start 01/17/19 at 18:17 Pantoprazole (Protonix Tab) 40 mg DAILY@06 PO Last administered on 01/22/19at 05:02; Admin Dose 40 MG; Start 01/17/19 at 18:17 IV Flush (NS 3 ml) 3 ml PER PROTOCOL IV ; Start 01/17/19 at 18:17 Terazosin HCl (Hytrin) 10 mg HS PO Last administered on 01/21/19at 20:33; Admin Dose 10 MG; Start 01/17/19 at 18:17 Miscellaneous Information 1 ea NOTE XX ; Start 01/17/19 at 18:17 Glucose (Glutose) 15 gm Q15M PRN PO DECREASED GLUCOSE; Start 01/17/19 at 18:17 Glucose (Glutose) 22.5 gm Q15M PRN PO DECREASED GLUCOSE; Start 01/17/19 at 18:17 Dextrose (D50w Syringe) 25 ml Q15M PRN IV DECREASED GLUCOSE; Start 01/17/19 at 18:17 Dextrose (D50w Syringe) 50 ml Q15M PRN IV DECREASED GLUCOSE; Start 01/17/19 at 18:17 Glucagon (Glucagen) 1 mg Q15M PRN IM DECREASED GLUCOSE; Start 01/17/19 at 18:17 Glucose (Glutose) 15 gm Q15M PRN BUCCAL DECREASED GLUCOSE; Start 01/17/19 at 18:17 Multivitamins Therapeutic (Theragran) 1 tab DAILY PO Last administered on 01/21/19 09:34; Admin Dose 1 TAB; Start 01/17/19 at 18:17 Zinc Sulfate (Zinc Sulfate) 220 mg DAILY PO Last administered on 01/21/19 09:35; Admin Dose 220 MG; Start 01/17/19 at 18:17 Ascorbic Acid (Vitamin C) 250 mg DAILY PO Last administered on 01/21/19 09:34; Admin Dose 250 MG; Start 01/17/19 at 18:17 Albuterol/ Ipratropium (Duoneb) 3 ml Q6H RESP THERAPY HHN Last administered on 01/22/19 08:29; Admin Dose 3 ML; Start 01/17/19 at 18:17 Multi-Ingredient Ointment (Aquaphor Oint 52.5 Gm) 1 applic BID TOP Last administered on 01/21/19 20:53; Admin Dose 1 APPLIC; Start 01/17/19 at 18:17 Aspirin (Aspirin) 81 mg DAILY PO Last administered on 01/21/19 09:34; Admin Dose 81 MG; Start 01/17/19 at 18:17 Ferrous Sulfate (Ferrous Sulfate (Ec)) 325 mg WITH MEALS PO Last administered on 01/22/19 07:57; Admin Dose 325 MG; Start 01/17/19 at 18:17 Bisacodyl (Dulcolax Supp) 10 mg DAILY PRN [place] CONSTIPATION; Start 01/17/19 at 18:17 Caspofungin 50 mg/ Sodium Chloride 250 ml @ 250 mls/hr Q24H IVPB Last adm inistered on 01/21/19 18:21; Admin Dose 250 MLS/HR; Start 01/17/19 at 18:17 Zinc Acetate/ Diphenhydramine (Benadryl 2% Cr) 1 applic Q6H PRN TOP ITCHING; Start 01/19/19 at 16:37 Nystatin/ Triamcinolone Acetonide (Mycolog Cr) 1 applic BID TOP Last administered on 01/21/19 20:25; Admin Dose 1 APPLIC; Start 01/19/19 at 22:41 Dextrose 1,000 ml @ 40 mls/hr Q24H IV Last administered on 01/22/19 02:39; Admin Dose 40 MLS/HR; Start 01/20/19 at 06:30 Epoetin Dae-epbx (RETACRIT(non-esrd)) 20,000 unit Mo@1700 SC Last administered on 01/20/19 18:13; Admin Dose 20,000 UNIT; Start 01/20/19 at 17:00 Furosemide (Lasix) 20 mg DAILY IV Last administered on 01/21/19 09:47; Admin Dose 20 MG; Start 01/21/19 at 09:00 IV Flush (NS 10 ml) 10 ml PRN PRN IV IV PROTOCOL; Start 01/20/19 at 14:30 Cyanocobalamin (Vitamin B12 Inj) 1,000 mcg Q7D IM ; Start 02/03/19 at 09:00 Cyanocobalamin (Vitamin B12 Inj) 1,000 mcg DAILY IM Last administered on 01/21/19at 09:38; Admin Dose 1,000 MCG; Start 01/21/19 at 09:00; Stop 01/27/19 at 09:00 OREN MARSH M.D. January 22, 2019 10:52
[2019-01-22] MEDS: NYSTATIN 30 GM POWDER BTL TOP SCH ×2 (11:20→12:18)
[2019-01-22] MEDS: BALSAM PERU/CASTOR OIL 60 GM TUBE TOP SCH ×2 (12:18→21:21)
--- NOTE | 2019-01-22 12:27 | CONS ---
Assessment/Plan Assessment/Plan Hospital Course 88 yo M with multiple comorbidities who initially presented for evaluation of hiccups. He was noted to become acutely altered... for which neurology is consulted. He was noted to develop ams on 01/21 around 7pm and noted on 01/22 to be unresponsive... prompting a code stroke activation. The clinical picture suggests an acute toxic-metabolic encephalopathy.. 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 CTH is without acute ischemia, though notable for chronic infarcts. 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 P: Await MRI brain for further characterization Add MRA H c/o contrast and MRA neck c/ and s/ contrast for the same ASA/Lipitor pending the above Permissive HTN up to 220/110 for 24h pending the above [place] as able Limit sedating medications where possible PT/OT/ST as tolerated Other medical management per primary Will follow clinically, to recommend neurologic studies, as necessary Consultation Date/Type/Reason Admit Date/Time Jan 17, 2019 at 15:58 Type of Consult Neurology Reason for Consultation ams; eval for stroke Requesting Provider: IVAN AKHTAR MD Date/Time of Note DATE: 01/22/19 TIME: 12:26 Hx of Present Illness The pt is currently unable to contribute a hx. History was obtained from daughter and chart review. The daughter states that she was with him ~ 1900 last night when she noticed his speech was garbled. She didn't think anything of it (thought he was tired), until ~2100, she noticed that he was misnaming objects and forgetting who had come to see him that day. The following morning ~ 1000, the pt was found unresponsive and a code stroke was called. A STAT CTH was obtained and was notable only for old strokes. 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 Severe rheumatoid arthritis affecting his multiple joints with decreased range of motion; Dr Meneses, pt reha bilitation provider noted critical illness myopathy. Patient had limited participation due recurrent sepsis and anemia. He was transferred today to [facility] floor. Pt was not been able to be out of bed much for the past 2-3 weeks, his physic activity declined severely since November,. Noted that pt has severe anemia that required blood transfusion, He is not on blood thinners. Pt. kidney function was restored to creatinine 1.5 . The course of a/b is not finished, per ID dr Fournier he is on caspofungin. Subjective hx not possible: pt non-verbal Exam/Review of Systems Exam Vitals Vital Signs Date Temp Pulse Resp B/P (MAP) Pulse Ox O2 O2 Flow FiO2 Time Delivery Rate 01/22/19 97.6 102 22 126/65 100 Nasal 11:24 (85) Cannula 01/22/19 2.0 08:29 01/18/19 21 09:23 Intake and Output 01/21/19 01/21/19 01/22/19 1515:00 23:00 07:00 IntakeIntake Total 690 ml 900 ml 200 ml OutputOutput Total 1200 ml 500 ml BalanceBalance 690 ml -300 ml -300 ml Exam PE: Gen Appearance: No Apparent Distress HEENT: Normocephalic Cardiovascular: Regular rate Abdomen: Soft Extremities: Dry NE: The patient was lethargic and nonverbal. Able to open eyes briefly to voice. Speech is dyarthric. The pt is able to follow simple axial and appendicular commands. Cranial nerve examination was limited by mental status. Pupils were equal and reactive to light. There was no afferent pupillary defect. Funduscopic examination was limited. Face was grossly symmetric, w/ present corneal and cough reflexes. Tone was normal. Muscle bulk was normal. I did not see fasciculations. The patient was less than gravity in his upper/lower extremities symmetrically Coordination and gait testing was limited by mental status. Arm and leg reflexes were within normal limits and symmetric. Gray's sign was absent. Plantar responses were flexor. Results Result Diagram: 01/22/19 0957 01/22/19 0957 Results 24hrs Laboratory Tests Test 01/21/19 17:08 01/21/19 20:38 01/22/19 03:11 01/22/19 06:08 Bedside Glucose 175 203 185 White Blood Count 22.6 H Red Blood Count 2.69 L Hemoglobin 7.8 L Hematocrit 24.3 L Mean Corpuscular 90.3 Volume Mean Corpuscular 29.0 Hemoglobin Mean Corpuscular 32.1 Hemoglobin Concen t Red Cell 17.3 H Distribution Width Platelet Count 291 Mean Platelet 10.2 Volume Immature 1.100 H Granulocytes % Neutrophils % 88.7 H Lymphocytes % 4.5 L Monocytes % 5.4 Eosinophils % 0.1 Basophils % 0.2 Nucleated Red 0.0 Blood Cells % Immature 0.240 H Granulocytes # Neutrophils # 20.1 H Lymphocytes # 1.0 Monocytes # 1.2 H Eosinophils # 0.0 Basophils # 0.1 Nucleated Red 0.0 Blood Cells # Sodium Level 135 Potassium Level 4.5 Chloride Level 102 Carbon Dioxide 24 Level Anion Gap 9 Blood Urea 44 H Nitrogen Creatinine 1.37 H Est Glomerular Filtrat Rate mL/min Glucose Level 154 Calcium Level 8.4 Phosphorus Level 3.7 Magnesium Level 2.1 Test 01/22/19 07:53 01/22/19 09:30 01/22/19 09:35 01/22/19 09:57 Bedside Glucose 165 180 Blood Gas Blood arterial Specimen Source Arterial Blood 01/22/2019 9:40:38 Date Drawn AM Arterial Blood pH 7.324 L (Temp corrected) Arterial Blood 44.2 pCO2 (Temp correct) Arterial Blood 137.0 H pO2 (Temp corrected) Arterial Blood 22.5 HCO3 Arterial Blood -3.4 L Base Excess Arterial Blood 98.5 Oxygen Saturation Manuel Test ACCEPTAB Arterial Blood Left Radial Gas Puncture Site Arterial 0.3 Blood Carboxyhemo globin Arterial Blood 0.4 Methemoglobin Blood Gas A-a O2 46.7 H Differential Oxyhemoglobin 97.8 Percent Blood Gas 37.0 Temperature Blood Gas NASAL CANNULA Modality FiO2 33.0 Blood Gas TM Notified Whom Blood Gas 01/22/2019 9:49:14 Notified Time AM White Blood Count 23.5 H Red Blood Count 2.69 L Hemoglobin 8.0 L Hematocrit 24.6 L Mean Corpuscular 91.4 Volume Mean Corpuscular 29.7 Hemoglobin Mean Corpuscular 32.5 Hemoglobin Concen t Red Cell 17.6 H Distribution Width Platelet Count 272 Mean Platelet 9.8 Volume Immature 0.900 H Granulocytes % Neutrophils % 88.4 H Lymphocytes % 5.2 L Monocytes % 5.4 Eosinophils % 0.0 Basophils % 0.1 Nucleated Red 0.0 Blood Cells % Immature 0.210 H Granulocytes # Neutrophils # 20.7 H Lymphocytes # 1.2 Monocytes # 1.3 H Eosinophils # 0.0 Basophils # 0.0 Nucleated Red 0.0 Blood Cells # Prothrombin Time 20.7 H Prothrombin Time 1.6 Ratio INR International 1.77 Normalized Ratio Activated 37.9 H Partial Thrombopl ast Time Sodium Level 135 Potassium Level 4.5 Chloride Level 103 Carbon Dioxide 23 Level Anion Gap 9 Blood Urea 44 H Nitrogen Creatinine 1.35 H Est Glomerular Filtrat Rate mL/min Glucose Level 158 Hemoglobin A1c 5.4 Calcium Level 8.5 Total Bilirubin 0.3 Direct Bilirubin 0.00 Indirect 0.3 Bilirubin Aspartate Amino 10 #L Transf (AST/SGOT) Alanine 19 Aminotransferase (ALT/SGPT) Alkaline 60 Phosphatase Creatine Kinase < 20 L Creatine Kinase Index Creatinine Kinase 1.66 MB (Mass) Troponin I < 0.012 Total Protein 4.7 L Albumin 2.1 L Globulin 2.60 Albumin/Globulin 0.80 Ratio Triglycerides 43 Level Cholesterol Level < 50 L LDL Cholesterol, Calculated HDL Cholesterol 18 L Cholesterol/HDL Ratio Medications Medication Current Medications Docusate Sodium (Colace) 100 mg BID PO Last administered on 01/21/19at 20:24; Admin Dose 100 MG; Start 01/17/19 at 18:17 Lactulose (Enulose) 20 gm DAILY PRN PO CONSTIPATION; Start 01/17/19 at 18:17 Acetaminophen (Tylenol Tab) 650 mg Q4H PRN PO PAIN Last administered on 01/22/19at 05:02; Admin Dose 650 MG; Start 01/17/19 at 18:17 Miscellaneous Information (Pending Santyl Order For Wound Care) This patient ramirez... PRN PRN XX WOUND CARE; Start 01/17/19 at 18:17 Diagnostic Test (Pha) (Accu-Chek) 1 ea AC MEALS AND BEDTIME XX Last administered on 01/22/19at 07:53; Admin Dose 1 EA; Start 01/17/19 at 18:17 Diagnostic Test (Pha) (Accu-Chek) 1 ea 02 XX Last administered on 01/22/19at 02:00; Admin Dose 1 EA; Start 01/17/19 at 18:17 Albuterol/ Ipratropium (Duoneb) 3 ml Q2H RESP THERAPY PRN HHN SHORTNESS OF BR EATH; Start 01/17/19 at 18:17 Atorvastatin Calcium (Lipitor) 40 mg QHS PO Last administered on 01/21/19 20:23; Admin Dose 40 MG; Start 01/17/19 at 18:17 Bisacodyl (Dulcolax) 10 mg BID PRN PO CONSTIPATION; Start 01/17/19 at 18:17 Folic Acid (Folic Acid) 1 mg DAILY PO Last administered on 01/21/19 09:34; Admin Dose 1 MG; Start 01/17/19 at 18:17 Insulin Aspart (Novolog Insulin Pen) NOVOLOG *MILD* ALGORITHM WITH MEALS BEDTIME SC Last administered on 01/22/19 08:08; Admin Dose 1 UNIT; Start at 18:17 Latanoprost (Xalatan) 1 drop HS BOTH EYES Last administered on 01/21/19 20:31; Admin Dose 1 DROP; Start 01/17/19 at 18:17 Levothyroxine Sodium (Synthroid) 125 mcg BEFORE BREAKFAST PO Last administered on 01/22/19 07:57; Admin Dose 125 MCG; Start 01/17/19 at 18:17 Metoprolol Tartrate (Lopressor) 50 mg BID PO Last administered on 01/21/19 20:32; Admin Dose 50 MG; Start 01/17/19 at 18:17 Nitroglycerin (Nitroglycerin (Sl Tab) 0.4 Mg) 0.4 tab Q5M PRN SL CHEST PAIN; Start 01/17/19 at 18:17 Nystatin (Nystatin Powder) 1 applic BID TOP Last administered on 01/22/19 12:18; Admin Dose 1 APPLIC; Start 01/17/19 at 18:17 Pantoprazole (Protonix Tab) 40 mg DAILY@06 PO Last administered on 01/22/19 05:02; Admin Dose 40 MG; Start 01/17/19 at 18:17 IV Flush (NS 3 ml) 3 ml PER PROTOCOL IV ; Start 01/17/19 at 18:17 Terazosin HCl (Hytrin) 10 mg HS PO Last administered on 01/21/19 20:33; Admin Dose 10 MG; Start 01/17/19 at 18:17 Miscellaneous Information 1 ea NOTE XX ; Start 01/17/19 at 18:17 Glucose (Glutose) 15 gm Q15M PRN PO DECREASED GLUCOSE; Start 01/17/19 at 18:17 Glucose (Glutose) 22.5 gm Q15M PRN PO DECREASED GLUCOSE; Start 01/17/19 at 18:17 Dextrose (D50w Syringe) 25 ml Q15M PRN IV DECREASED GLUCOSE; Start 01/17/19 at 18:17 Dextrose (D50w Syringe) 50 ml Q15M PRN IV DECREASED GLUCOSE; Start 01/17/19 at 18:17 Glucagon (Glucagen) 1 mg Q15M PRN IM DECREASED GLUCOSE; Start 01/17/19 at 18:17 Glucose (Glutose) 15 gm Q15M PRN BUCCAL DECREASED GLUCOSE; Start 01/17/19 at 18:17 Multivitamins Therapeutic (Theragran) 1 tab DAILY PO Last administered on 01/21/19 09:34; Admin Dose 1 TAB; Start 01/17/19 at 18:17 Zinc Sulfate (Zinc Sulfate) 220 mg DAILY PO Last administered on 01/21/19 09:35; Admin Dose 220 MG; Start 01/17/19 at 18:17 Ascorbic Acid (Vitamin C) 250 mg DAILY PO Last administered on 01/21/19 09:34; Admin Dose 250 MG; Start 01/17/19 at 18:17 Albuterol/ Ipratropium (Duoneb) 3 ml Q6H RESP THERAPY HHN Last administered on 01/22/19 08:29; Admin Dose 3 ML; Start 01/17/19 at 18:17 Multi-Ingredient Ointment (Aquaphor Oint 52.5 Gm) 1 applic BID TOP Last administered on 01/22/19 09:00; Admin Dose 1 APPLIC; Start 01/17/19 at 18:17 Aspirin (Aspirin) 81 mg DAILY PO Last administered on 01/21/19 09:34; Admin Dose 81 MG; Start 01/17/19 at 18:17 Ferrous Sulfate (Ferrous Sulfate (Ec)) 325 mg WITH MEALS PO Last administered on 01/22/19 07:57; Admin Dose 325 MG; Start 01/17/19 at 18:17 Bisacodyl (Dulcolax Supp) 10 mg DAILY PRN VT CONSTIPATION; Start 01/17/19 at 18:17 Caspofungin 50 mg/ Sodium Chloride 250 ml @ 250 mls/hr Q24H IVPB Last admin istered on 01/21/19 18:21; Admin Dose 250 MLS/HR; Start 01/17/19 at 18:17 Zinc Acetate/ Diphenhydramine (Benadryl 2% Cr) 1 applic Q6H PRN TOP ITCHING; Start 01/19/19 at 16:37 Nystatin/ Triamcinolone Acetonide (Mycolog Cr) 1 applic BID TOP Last administered on 01/22/19at 09:00; Admin Dose 1 APPLIC; Start 01/19/19 at 22:41 Dextrose 1,000 ml @ 40 mls/hr Q24H IV Last administered on 01/22/19at 02:39; Admin Dose 40 MLS/HR; Start 01/20/19 at 06:30 Epoetin Dae-epbx (RETACRIT(non-esrd)) 20,000 unit Mo@1700 SC Last administered on 01/20/19at 18:13; Admin Dose 20,000 UNIT; Start 01/20/19 at 17:00 Furosemide (Lasix) 20 mg DAILY IV Last administered on 01/21/19at 09:47; Admin Dose 20 MG; Start 01/21/19 at 09:00 IV Flush (NS 10 ml) 10 ml PRN PRN IV IV PROTOCOL; Start 01/20/19 at 14:30 Cyanocobalamin (Vitamin B12 Inj) 1,000 mcg Q7D IM ; Start 02/03/19 at 09:00 Cyanocobalamin (Vitamin B12 Inj) 1,000 mcg DAILY IM Last administered on 01/21/19at 09:38; Admin Dose 1,000 MCG; Start 01/21/19 at 09:00; Stop 01/27/19 at 09:00 Past Medical History reviewed Medical History: congestive heart failure, renal disease Home Meds Active Scripts Apixaban* (Eliquis*) 5 Mg Tablet, 2.5 MG PO BID for 30 Days, TAB Prov:IVAN AKHTAR MD 12/20/18 Metoprolol Tartrate* (Lopressor*) 50 Mg Tab, 50 MG PO BID for 30 Days, TAB Prov:COOPER CARO 12/20/18 Reported Medications Furosemide* (Lasix*) 20 Mg Tablet, 20 MG PO BID, TAB 01/05/19 Polyethylene Glycol* (Miralax*) 17 Gm Powd.pack, 17 GM PO DAILY, #30 PACKET 12/15/18 Nifedipine* (Nifedipine ER*) 60 Mg Tablet.sa, 60 MG PO DAILY, TAB.SA 12/15/18 Bisacodyl* (Bisacodyl*) 5 Mg Tablet.dr, 10 MG PO BID PRN for CONSTIPATION, TAB 12/15/18 Pregabalin* (Lyrica*) 25 Mg Capsule, 25 MG PO TID, CAP 12/15/18 Bimatoprost* (Lumigan*) 0.01%-5 Ml Opht Drops, 1 DROP BOTH EYES HS, EA 03/02/18 Cetirizine Hcl* (Cetirizine Hcl*) 10 Mg Tablet, 10 MG PO DAILY, #30 TAB 03/02/18 Insulin Glargine* (Lantus*) 100 Unit/Ml Soln, 10 UNIT SC QHS, #1 VIAL 03/02/18 Ergocalciferol (Vitamin D2) (VITAMIN D2) 2,000 Unit Tablet, 2000 UNIT PO DAILY, TAB 03/02/18 Famotidine* (Famotidine*) 20 Mg Tablet, 20 MG PO DAILY, #30 TAB 03/02/18 Ferrous Sulfate* (Ferrous Sulfate*) 325 Mg Tabec, 325 MG PO BID, TAB 03/02/18 Nitroglycerin* (Nitrostat*) 0.4 Mg Tab.subl, 0.4 MG SL Q5MIN PRN for CHEST PAIN, BOTTLE 03/02/18 Terazosin Hcl* (Terazosin Hcl*) 10 Mg Capsule, 10 MG PO HS, CAP 03/02/18 Levothyroxine Sodium* (Levoxyl*) 125 Mcg Tablet, 125 MCG PO BEFORE BREAKFAST, #30 TAB 03/02/18 Allopurinol* (Allopurinol*) 100 Mg Tablet, 100 MG PO BID, TAB 03/02/18 Atorvastatin* (Atorvastatin*) 40 Mg Tablet, 40 MG PO QHS, #30 TAB 03/02/18 Folic Acid* (Folic Acid*) 1 Mg Tablet, 1 MG PO DAILY, TAB 03/02/18 Medications Current Medications Docusate Sodium (Colace) 100 mg BID PO Last administered on 01/21/19at 20:24; Admin Dose 100 MG; Start 01/17/19 at 18:17 Lactulose (Enulose) 20 gm DAILY PRN PO CONSTIPATION; Start 01/17/19 at 18:17 Acetaminophen (Tylenol Tab) 650 mg Q4H PRN PO PAIN Last administered on 01/22/19 05:02; Admin Dose 650 MG; Start 01/17/19 at 18:17 Miscellaneous Information (Pending [facility] Order For Wound Care) This patient ramirez... PRN PRN XX WOUND CARE; Start 01/17/19 at 18:17 Diagnostic Test (Pha) (Accu-Chek) 1 ea AC MEALS AND BEDTIME XX Last administered on 01/22/19 07:53; Admin Dose 1 EA; Start 01/17/19 at 18:17 Diagnostic Test (Pha) (Accu-Chek) 1 ea 02 XX Last administered on 01/22/19 02:00; Admin Dose 1 EA; Start 01/17/19 at 18:17 Albuterol/ Ipratropium (Duoneb) 3 ml Q2H RESP THERAPY PRN HHN SHORTNESS OF BREATH; Start 01/17/19 at 18:17 Atorvastatin Calcium (Lipitor) 40 mg QHS PO Last administered on 01/21/19 20:23; Admin Dose 40 MG; Start 01/17/19 at 18:17 Bisacodyl (Dulcolax) 10 mg BID PRN PO CONSTIPATION; Start 01/17/19 at 18:17 Folic Acid (Folic Acid) 1 mg DAILY PO Last administered on 01/21/19 09:34; Admin Dose 1 MG; Start 01/17/19 at 18:17 Insulin Aspart (Novolog Insulin Pen) NOVOLOG *MILD* ALGORITHM WITH MEALS BEDTIME SC Last administered on 01/22/19 08:08; Admin Dose 1 UNIT; Start 01/17/19 at 18:17 Latanoprost (Xalatan) 1 drop HS BOTH EYES Last administered on 01/21/19 20:31; Admin Dose 1 DROP; Start 01/17/19 at 18:17 Levothyroxine Sodium (Synthroid) 125 mcg BEFORE BREAKFAST PO Last administered on 01/22/19 07:57; Admin Dose 125 MCG; Start 01/17/19 at 18:17 Metoprolol Tartrate (Lopressor) 50 mg BID PO Last administered on 01/21/19 20:32; Admin Dose 50 MG; Start 01/17/19 at 18:17 Nitroglycerin (Nitroglycerin (Sl Tab) 0.4 Mg) 0.4 tab Q5M PRN SL CHEST PAIN; Start 01/17/19 at 18:17 Nystatin (Nystatin Powder) 1 applic BID TOP Last administered on 01/22/19at 12:18; Admin Dose 1 APPLIC; Start 01/17/19 at 18:17 Pantoprazole (Protonix Tab) 40 mg DAILY@06 PO Last administered on 01/22/19at 05:02; Admin Dose 40 MG; Start 01/17/19 at 18:17 IV Flush (NS 3 ml) 3 ml PER PROTOCOL IV ; Start 01/17/19 at 18:17 Terazosin HCl (Hytrin) 10 mg HS PO Last administered on 01/21/19at 20:33; Admin Dose 10 MG; Start 01/17/19 at 18:17 Miscellaneous Information 1 ea NOTE XX ; Start 01/17/19 at 18:17 Glucose (Glutose) 15 gm Q15M PRN PO DECREASED GLUCOSE; Start 01/17/19 at 18:17 Glucose (Glutose) 22.5 gm Q15M PRN PO DECREASED GLUCOSE; Start 01/17/19 at 18:17 Dextrose (D50w Syringe) 25 ml Q15M PRN IV DECREASED GLUCOSE; Start 01/17/19 at 18:17 Dextrose (D50w Syringe) 50 ml Q15M PRN IV DECREASED GLUCOSE; Start 01/17/19 at 18:17 Glucagon (Glucagen) 1 mg Q15M PRN IM DECREASED GLUCOSE; Start 01/17/19 at 18:17 Glucose (Glutose) 15 gm Q15M PRN BUCCAL DECREASED GLUCOSE; Start 01/17/19 at 18:17 Multivitamins Therapeutic (Theragran) 1 tab DAILY PO Last administered on at 09:34; Admin Dose 1 TAB; Start 01/17/19 at 18:17 Zinc Sulfate (Zinc Sulfate) 220 mg DAILY PO Last administered on 01/21/19at 09:35; Admin Dose 220 MG; Start 01/17/19 at 18:17 Ascorbic Acid (Vitamin C) 250 mg DAILY PO Last administered on 01/21/19at 09:34; Admin Dose 250 MG; Start 01/17/19 at 18:17 Albuterol/ Ipratropium (Duoneb) 3 ml Q6H RESP THERAPY HHN Last administered on 01/22/19at 08:29; Admin Dose 3 ML; Start 01/17/19 at 18:17 Multi-Ingredient Ointment (Aquaphor Oint 52.5 Gm) 1 applic BID TOP Last administered on 01/22/19 09:00; Admin Dose 1 APPLIC; Start 01/17/19 at 18:17 Aspirin (Aspirin) 81 mg DAILY PO Last administered on 01/21/19 09:34; Admin Dose 81 MG; Start 01/17/19 at 18:17 Ferrous Sulfate (Ferrous Sulfate (Ec)) 325 mg WITH MEALS PO Last administered on 01/22/19 07:57; Admin Dose 325 MG; Start 01/17/19 at 18:17 Bisacodyl (Dulcolax Supp) 10 mg DAILY PRN [place] CONSTIPATION; Start 01/17/19 at 18:17 Caspofungin 50 mg/ Sodium Chloride 250 ml @ 250 mls/hr Q24H IVPB Last administered on 01/21/19 18:21; Admin Dose 250 MLS/HR; Start 01/17/19 at 18:17 Zinc Acetate/ Diphenhydramine (Benadryl 2% Cr) 1 applic Q6H PRN TOP ITCHING; Start 01/19/19 at 16:37 Nystatin/ Triamcinolone Acetonide (Mycolog Cr) 1 applic BID TOP Last administered on 01/22/19 09:00; Admin Dose 1 APPLIC; Start 01/19/19 at 22:41 Dextrose 1,000 ml @ 40 mls/hr Q24H IV Last administered on 01/22/19 02:39; Admin Dose 40 MLS/HR; Start 01/20/19 at 06:30 Epoetin Dae-epbx (RETACRIT(non-esrd)) 20,000 unit Mo@1700 SC Last administered on 01/20/19 18:13; Admin Dose 20,000 UNIT; Start 01/20/19 at 17:00 Furosemide (Lasix) 20 mg DAILY IV Last administered on 01/21/19 09:47; Admin Dose 20 MG; Start 01/21/19 at 09:00 IV Flush (NS 10 ml) 10 ml PRN PRN IV IV PROTOCOL; Start 01/20/19 at 14:30 Cyanocobalamin (Vitamin B12 Inj) 1,000 mcg Q7D IM ; Start 02/03/19 at 09:00 Cyanocobalamin (Vitamin B12 Inj) 1,000 mcg DAILY IM Last administered on 01/21/19at 09:38; Admin Dose 1,000 MCG; Start 01/21/19 at 09:00; Stop 01/27/19 at 09:00 Allergies: Coded Allergies: Penicillins (Verified Allergy, Severe, shortness of breath, 01/05/19) Sulfa (Sulfonamide Antibiotics) (Verified Allergy, Severe, Shortness of breath, 01/05/19) sulfadiazine (Verified Allergy, Severe, shortness of breath, 01/05/19) Past Surgical History reviewed Past Surgical Hx: angioplasty, endoscopy, other (stent) Social History reviewed Alcohol Use: none Smoking Status: Former smoker Drug Use: none NEGRA CORONA NP January 22, 2019 12:27 ANGE RAMIREZ January 22, 2019 20:31
--- NOTE | 2019-01-22 12:27 | QN ---
Documentation Comment Code stroke activated due to AMS, spoke to radiologist> chronic srtroke spoke to teleneurology who recommended CT angio brain to see if Rt mca thrombus and start on plavix spoke to daugther / family member who is physican, explained them risks and benefits of ct angio with risk of contrast nephropathy and plavix with anemia according to them they want to wait and obtain 2nd opionion from neurologist inhouse before deciding for ct angio explained to family it could delay the diagnosis//treatment and prognosis but they decided to wait for [address] lobato is called who will see patient today and will fu IVAN Brice MD January 22, 2019 12:27
--- NOTE | 2019-01-22 12:39 | CONS ---
Assessment/Plan Assessment/Plan Hospital Course (Demo Recall) All noted, s/p code stroke, CT brain ==> no acute findings, neurology on case Microbiology blood cultures repeated on January 17 grew coag negative staph suspicious of onset urine culture has been negative Antimicrobials: s/p Vancomycin, Invanz Physical examination: Obese well-developed chronically ill-appearing - [place] man who is awake in no distress. Head atraumatic normocephalic sclera nonicteric. Neck is supple chest rise symmetrical breath sounds diminished bases. Heart: S1-S2. Abdomen obese soft bowel sounds present extremities without cyanosis, bilateral edema Assessment: 1. Systemic inflammatory response syndrome with ongoing leukocytosis 2. Status post pneumonia 3. Coronary artery disease/history of CABG 4. Advanced rheumatoid arthritis 5. Chronic atrial fibrillation 6. Diabetes 7. BPH 8. Coag negative staph bacteremia consistent with contaminant 9. Acute on chronic anemia===> s/p EGD/colonoscopy 01/09/19 10. Status post right epididymitis 11. Pancreatic lesion per CT, unlikely neoplasm per oncology notes Plan: Clinically unchanged, no fevers, cxr noted, unchanged, pt completed 2+ weeks abx, will observe now and reculture prn Consultation Date/Type/Reason Admit Date/Time Jan 17, 2019 at 15:58 Initial Consult Date 01/18/19 Type of Consult id Requesting Provider: IVAN AKHTAR MD Date/Time of Note DATE: 01/22/19 TIME: 12:36 Exam/Review of Systems Exam Vitals Vital Signs Date Temp Pulse Resp B/P (MAP) Pulse Ox O2 O2 Flow FiO2 Time Delivery Rate 01/22/19 97.6 102 22 126/65 100 Nasal 11:24 (85) Cannula 01/22/19 2.0 08:29 01/18/19 21 09:23 Intake and Output 01/21/19 01/21/19 01/22/19 1515:00 23:00 07:00 IntakeIntake Total 690 ml 900 ml 200 ml OutputOutput Total 1200 ml 500 ml BalanceBalance 690 ml -300 ml -300 ml Results Result Diagram: 01/22/19 0957 01/22/19 0957 Results 24hrs Laboratory Tests Test 01/21/19 17:08 01/21/19 20:38 01/22/19 03:11 01/22/19 06:08 Bedside Glucose 175 203 185 White Blood Count 22.6 H Red Blood Count 2.69 L Hemoglobin 7.8 L Hematocrit 24.3 L Mean Corpuscular 90.3 Volume Mean Corpuscular 29.0 Hemoglobin Mean Corpuscular 32.1 Hemoglobin Concen t Red Cell 17.3 H Distribution Width Platelet Count 291 Mean Platelet 10.2 Volume Immature 1.100 H Granulocytes % Neutrophils % 88.7 H Lymphocytes % 4.5 L Monocytes % 5.4 Eosinophils % 0.1 Basophils % 0.2 Nucleated Red 0.0 Blood Cells % Immature 0.240 H Granulocytes # Neutrophils # 20.1 H Lymphocytes # 1.0 Monocytes # 1.2 H Eosinophils # 0.0 Basophils # 0.1 Nucleated Red 0.0 Blood Cells # Sodium Level 135 Potassium Level 4.5 Chloride Level 102 Carbon Dioxide 24 Level Anion Gap 9 Blood Urea 44 H Nitrogen Creatinine 1.37 H Est Glomerular Filtrat Rate mL/min Glucose Level 154 Calcium Level 8.4 Phosphorus Level 3.7 Magnesium Level 2.1 Test 01/22/19 07:53 01/22/19 09:30 01/22/19 09:35 01/22/19 09:57 Bedside Glucose 165 180 Blood Gas Blood arterial Specimen Source Arterial Blood 01/22/2019 9:40:38 Date Drawn AM Arterial Blood pH 7.324 L (Temp corrected) Arterial Blood 44.2 pCO2 (Temp correct) Arterial Blood 137.0 H pO2 (Temp corrected) Arterial Blood 22.5 HCO3 Arterial Blood -3.4 L Base Excess Arterial Blood 98.5 Oxygen Saturation Manuel Test ACCEPTAB Arterial Blood Left Radial Gas Puncture Site Arterial 0.3 Blood Carboxyhemo globin Arterial Blood 0.4 Methemoglobin Blood Gas A-a O2 46.7 H Differential Oxyhemoglobin 97.8 Percent Blood Gas 37.0 Temperature Blood Gas NASAL CANNULA Modality FiO2 33.0 Blood Gas TM Notified Whom Blood Gas 01/22/2019 9:49:14 Notified Time AM White Blood Count 23.5 H Red Blood Count 2.69 L Hemoglobin 8.0 L Hematocrit 24.6 L Mean Corpuscular 91.4 Volume Mean Corpuscular 29.7 Hemoglobin Mean Corpuscular 32.5 Hemoglobin Concen t Red Cell 17.6 H Distribution Width Platelet Count 272 Mean Platelet 9.8 Volume Immature 0.900 H Granulocytes % Neutrophils % 88.4 H Lymphocytes % 5.2 L Monocytes % 5.4 Eosinophils % 0.0 Basophils % 0.1 Nucleated Red 0.0 Blood Cells % Immature 0.210 H Granulocytes # Neutrophils # 20.7 H Lymphocytes # 1.2 Monocytes # 1.3 H Eosinophils # 0.0 Basophils # 0.0 Nucleated Red 0.0 Blood Cells # Prothrombin Time 20.7 H Prothrombin Time 1.6 Ratio INR International 1.77 Normalized Ratio Activated 37.9 H Partial Thrombopl ast Time Sodium Level 135 Potassium Level 4.5 Chloride Level 103 Carbon Dioxide 23 Level Anion Gap 9 Blood Urea 44 H Nitrogen Creatinine 1.35 H Est Glomerular Filtrat Rate mL/min Glucose Level 158 Hemoglobin A1c 5.4 Calcium Level 8.5 Total Bilirubin 0.3 Direct Bilirubin 0.00 Indirect 0.3 Bilirubin Aspartate Amino 10 #L Transf (AST/SGOT) Alanine 19 Aminotransferase (ALT/SGPT) Alkaline 60 Phosphatase Creatine Kinase < 20 L Creatine Kinase Index Creatinine Kinase 1.66 MB (Mass) Troponin I < 0.012 Total Protein 4.7 L Albumin 2.1 L Globulin 2.60 Albumin/Globulin 0.80 Ratio Triglycerides 43 Level Cholesterol Level < 50 L LDL Cholesterol, Calculated HDL Cholesterol 18 L Cholesterol/HDL Ratio Medications Medication Current Medications Docusate Sodium (Colace) 100 mg BID PO Last administered on 01/21/19at 20:24; Admin Dose 100 MG; Start 01/17/19 at 18:17 Lactulose (Enulose) 20 gm DAILY PRN PO CONSTIPATION; Start 01/17/19 at 18:17 Acetaminophen (Tylenol Tab) 650 mg Q4H PRN PO PAIN Last administered on 01/22/19at 05:02; Admin Dose 650 MG; Start 01/17/19 at 18:17 Miscellaneous Information (Pending Santyl Order For Wound Care) This patient ramirez... PRN PRN XX WOUND CARE; Start 01/17/19 at 18:17 Diagnostic Test (Pha) (Accu-Chek) 1 ea AC MEALS AND BEDTIME XX Last administered on 01/22/19at 12:14; Admin Dose 1 EA; Start 01/17/19 at 18:17 Diagnostic Test (Pha) (Accu-Chek) 1 ea 02 XX Last administered on 01/22/19at 02:00; Admin Dose 1 EA; Start 01/17/19 at 18:17 Albuterol/ Ipratropium (Duoneb) 3 ml Q2H RESP THERAPY PRN HHN SHORTNESS OF BREATH; Start 01/17/19 at 18:17 Atorvastatin Calcium (Lipitor) 40 mg QHS PO Last administered on 01/21/19 20:23; Admin Dose 40 MG; Start 01/17/19 at 18:17 Bisacodyl (Dulcolax) 10 mg BID PRN PO CONSTIPATION; Start 01/17/19 at 18:17 Folic Acid (Folic Acid) 1 mg DAILY PO Last administered on 01/21/19 09:34; Admin Dose 1 MG; Start 01/17/19 at 18:17 Insulin Aspart (Novolog Insulin Pen) NOVOLOG *MILD* ALGORITHM WITH MEALS BEDTIME SC Last administered on 01/22/19 12:29; Admin Dose 1 UNIT; Start 01/17/19 at 18:17 Latanoprost (Xalatan) 1 drop HS BOTH EYES Last administered on 01/21/19 20:31; Admin Dose 1 DROP; Start 01/17/19 at 18:17 Levothyroxine Sodium (Synthroid) 125 mcg BEFORE BREAKFAST PO Last administered on 01/22/19 07:57; Admin Dose 125 MCG; Start 01/17/19 at 18:17 Metoprolol Tartrate (Lopressor) 50 mg BID PO Last administered on 01/21/19 2 0:32; Admin Dose 50 MG; Start 01/17/19 at 18:17 Nitroglycerin (Nitroglycerin (Sl Tab) 0.4 Mg) 0.4 tab Q5M PRN SL CHEST PAIN; Start 01/17/19 at 18:17 Nystatin (Nystatin Powder) 1 applic BID TOP Last administered on 01/22/19 12:18; Admin Dose 1 APPLIC; Start 01/17/19 at 18:17 Pantoprazole (Protonix Tab) 40 mg DAILY@06 PO Last administered on 01/22/19 05:02; Admin Dose 40 MG; Start 01/17/19 at 18:17 IV Flush (NS 3 ml) 3 ml PER PROTOCOL IV ; Start 01/17/19 at 18:17 Terazosin HCl (Hytrin) 10 mg HS PO Last administered on 01/21/19 20:33; Admin Dose 10 MG; Start 01/17/19 at 18:17 Miscellaneous Information 1 ea NOTE XX ; Start 01/17/19 at 18:17 Glucose (Glutose) 15 gm Q15M PRN PO DECREASED GLUCOSE; Start 01/17/19 at 18:17 Glucose (Glutose) 22.5 gm Q15M PRN PO DECREASED GLUCOSE; Start 01/17/19 at 18:17 Dextrose (D50w Syringe) 25 ml Q15M PRN IV DECREASED GLUCOSE; Start 01/17/19 at 18:17 Dextrose (D50w Syringe) 50 ml Q15M PRN IV DECREASED GLUCOSE; Start 01/17/19 at 18:17 Glucagon (Glucagen) 1 mg Q15M PRN IM DECREASED GLUCOSE; Start 01/17/19 at 18:17 Glucose (Glutose) 15 gm Q15M PRN BUCCAL DECREASED GLUCOSE; Start 01/17/19 at 18:17 Multivitamins Therapeutic (Theragran) 1 tab DAILY PO Last administered on 01/21/19 09:34; Admin Dose 1 TAB; Start 01/17/19 at 18:17 Zinc Sulfate (Zinc Sulfate) 220 mg DAILY PO Last administered on 01/21/19 09:35; Admin Dose 220 MG; Start 01/17/19 at 18:17 Ascorbic Acid (Vitamin C) 250 mg DAILY PO Last administered on 01/21/19 09:34; Admin Dose 250 MG; Start 01/17/19 at 18:17 Albuterol/ Ipratropium (Duoneb) 3 ml Q6H RESP THERAPY HHN Last administered on 01/22/19 08:29; Admin Dose 3 ML; Start 01/17/19 at 18:17 Multi-Ingredient Ointment (Aquaphor Oint 52.5 Gm) 1 applic BID TOP Last administered on 01/22/19 09:00; Admin Dose 1 APPLIC; Start 01/17/19 at 18:17 Aspirin (Aspirin) 81 mg DAILY PO Last administered on 01/21/19 09:34; Admin D ose 81 MG; Start 01/17/19 at 18:17 Ferrous Sulfate (Ferrous Sulfate (Ec)) 325 mg WITH MEALS PO Last administered on 01/22/19 07:57; Admin Dose 325 MG; Start 01/17/19 at 18:17 Bisacodyl (Dulcolax Supp) 10 mg DAILY PRN NV CONSTIPATION; Start 01/17/19 at 18:17 Caspofungin 50 mg/ Sodium Chloride 250 ml @ 250 mls/hr Q24H IVPB Last administered on 01/21/19at 18:21; Admin Dose 250 MLS/HR; Start 01/17/19 at 18:17 Zinc Acetate/ Diphenhydramine (Benadryl 2% Cr) 1 applic Q6H PRN TOP ITCHING; Start 01/19/19 at 16:37 Nystatin/ Triamcinolone Acetonide (Mycolog Cr) 1 applic BID TOP Last administered on 01/22/19at 09:00; Admin Dose 1 APPLIC; Start 01/19/19 at 22:41 Dextrose 1,000 ml @ 40 mls/hr Q24H IV Last administered on 01/22/19at 02:39; Admin Dose 40 MLS/HR; Start 01/20/19 at 06:30 Epoetin Dae-epbx (RETACRIT(non-esrd)) 20,000 unit Mo@1700 SC Last administered on 01/20/19at 18:13; Admin Dose 20,000 UNIT; Start 01/20/19 at 17:00 Furosemide (Lasix) 20 mg DAILY IV Last administered on 01/21/19at 09:47; Admin Dose 20 MG; Start 01/21/19 at 09:00 IV Flush (NS 10 ml) 10 ml PRN PRN IV IV PROTOCOL; Start 01/20/19 at 14:30 Cyanocobalamin (Vitamin B12 Inj) 1,000 mcg Q7D IM ; Start 02/03/19 at 09:00 Cyanocobalamin (Vitamin B12 Inj) 1,000 mcg DAILY IM Last administered on 01/21/19at 09:38; Admin Dose 1,000 MCG; Start 01/21/19 at 09:00; Stop 01/27/19 at 09:00 LUCIAN HARKINS NP January 22, 2019 12:39
--- NOTE | 2019-01-22 12:39 | STROKE ---
Date/Time of Note Date/Time of Note DATE: 01/22/19 TIME: 10:49 Patient Information General Patient location: inpatient Arrival Date Age 88 Gender male Weight 87.7 kg POC Glucose Glucose Result Bedside Glucose - 72 Hours Test 01/19/19 12:47 01/19/19 18:19 01/19/19 21:27 01/20/19 06:13 Bedside 104 141 117 54 Glucose mg/dL (70-220) mg/dL (70-220) mg/dL (70-220) mg/dL (70-220) L Test 01/20/19 06:35 01/20/19 08:39 01/20/19 12:15 01/20/19 17:14 Bedside 67 97 107 91 Glucose mg/dL (70-220) mg/dL (70-220) mg/dL (70-220) mg/dL (70-220) L Test 01/20/19 20:54 01/21/19 01:47 01/21/19 07:54 01/21/19 12:19 Bedside 85 105 133 139 Glucose mg/dL (70-220) mg/dL (70-220) mg/dL (70-220) mg/dL (70-220) Test 01/21/19 17:08 01/21/19 20:38 01/22/19 03:11 01/22/19 07:53 Bedside 175 203 185 165 Glucose mg/dL (70-220) mg/dL (70-220) mg/dL (70-220) mg/dL (70-220) Test 01/22/19 09:30 Bedside 180 Glucose mg/dL (70-220) Vital Signs Vital Signs Vital Signs Date Temp Pulse Resp B/P (MAP) Pulse Ox O2 O2 Flow FiO2 Time Delivery Rate 01/22/19 88 16 100 Nasal 2.0 08:29 Cannula 01/22/19 97.2 121/70 07:35 (87) 01/18/19 21 09:23 Patient History Current Medications Allergies: Coded Allergies: Penicillins (Verified Allergy, Severe, shortness of breath, 01/05/19) Sulfa (Sulfonamide Antibiotics) (Verified Allergy, Severe, Shortness of breath, 01/05/19) sulfadiazine (Verified Allergy, Severe, shortness of breath, 01/05/19) Labs Coagulation Labs: Coagulation Test 01/22/19 09:57 Activated Partial Thromboplast Time 37.9 Sec (23.0-35.0) History & Physical Patient History Notes Pt Hx Reviewed Review of Systems All Other Systems: Reviewed and Negative (unable to obtain due to clinical condition) NIH Stroke Scale NIH Stroke Scale [id number] 4d LOC Questions: Ribyc8j LOC Commands: Zhlhl9t t Gaze: Shuuz6q Muzso5f cial Palsy: Rjwme8i rm - Left: Hhcbk5q ight: Nyoru3x otor Leg - Left: Kclxf0p otor Leg - Right: Jqfbv6t Kgiwj7u Jfrnj8s Xpjrx0d Fqcwn6o Whgek2k te/Time Recorded DATE: 01/22/19 TIME: 10:49 Submitted By Ravindra Jeong t-PA Imaging Review Imaging Reviewed: Yes Date/Time Imaging Reviewed DATE: 01/22/19 TIME: 10:49 Imaging Findings chronic ischemic changes t-PA Administration Weight 87.7 kg Recommedation submitted by Ravindra Jeong Reason t-PA not Recommended outside time window Recommendations Impression Diagnosis Ischemic stroke Recommendation 88yo M presents with acute onset decreased responsiveness. Neurological exam is notable for disorientation, right arm weakness, right leg greater than left leg weakness, severe dysarthria, and moderate aphasia. I believe the patient is having an acute ischemic stroke. I recommend stat CTA of the head and neck to determine if the patient is a neurointerventional candidate. Per daughter at baseline, patient is able to manage his ADLs and she discusses his finanaces with him as well. I recommend further workup include MRI Brain without gadolinium and transthoracic echocardiogram. Patient has elevated creatinine and I recommended administering IV fluids for contrast infusion. I spoke to the daughter at bedside and the attending physician over the phone and discussed my recommendations in detail. Both daughter and attending are agreeable to this plan. I have requested I be called when CTA is completed so I may review the images. [id number] Diagnostic Labs: Ofpsq7y Lipid Proile Hgb A1C CMP CBC w/Diff Coags Urinaysis [id number] Therapy: [id number] Physical Therapy Speech Therapy Occupational Therapy [id number] Misc. Recommendations: [id number] Bedside Swallow Evaluation Pnumatic Compression Devices Stroke Education Smoking Education RAVINDRA JEONG January 22, 2019 10:59
[2019-01-22] MEDS ORDERED: SOD CHLORIDE 0.9% 1,000 ML IV ONE (15:30)
--- NOTE | 2019-01-22 16:13 | CONS ---
Assessment/Plan Assessment/Plan Assessment/Plan (Daily) Consultation Assessment/Plan Assessment/Plan Hospital Course (Demo Recall) 88 yo male presents from [facility] for SOB and febrile Interval hx: Pending morning labs. M 1. Severe anemia likely due to chronic disease, last work up while admitted to [facility] about a week ago was neg for GI bleeding, including EGD/colon which was done -s/p EGD and colonoscopy by Dr Frost 01/09/19 which didn't find an obvious GI etiology to explain anemia. AVM or a small lesion could be missed due to poor prep. Pt likely needs capsule endoscopy -Neg fob, elevate retic, Low iron, tibc, [place] [id number] 2. Cystic lesion along pancreas body - 4.3 cm cystic lesion along the pancreas body, enlarged since 10/10/2012 (previously 2.4 cm). 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 -CEA wnl 3. Severe gastritis 4. Hemorrhoids 5. Hital hernia 6. A fib, -eliquis was stopped 01/06 during previous admission, on ASA 7. COPD 8. HTN 9. Hypothyroidism 10. Bilateral groin cellulitis 11. Rheumatoid arthritis. 12. Diabetes mellitus. 13. Peripheral vascular disease. 14. CHF 15. 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 Sepsis- Leukocytosis up to 29, urine cx was unremarkable CT Abd 01/15/19 IMPRESSION: 1. No intra-abdominal inflammation or lymphadenopathy. 2. 4.3 cm cystic lesion along the pancreas body, enlarged since 10/10/2012 (previously 2.4 cm). 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 If clinically warranted, this could be further evaluated with contrast-enhanced MRI. 3. No obstructive uropathy or urinary stone. 4. Enlarged prostate gland. Correlation with PSA level is recommended. 5. Moderate atherosclerotic arterial calcifications. 6. Diffuse subcutaneous edema. 7. Status post posterior decompression and fusion at L5-S1. A malpositioned pedicle screw and impinges on the left L4-5 neural foramen, unchanged. 8. Grade 2 degenerative L4 anterolisthesis and grade 1 degenerative L5 anterolisthesis. 9. Right-sided weakness and aphasic patient is being worked up for the stroke Plan Stop miralax for mx bm, hold laxatives for diarrhea Recommend carranza cx Pt will need outpatient EUS to evaluate pancreatic cystic lesion, this can be done as an outpatient at outside facility by me Recommend capsule endoscopy as outpatient GI prophylaxis: protonix QD Continue Iron, consider IV iron since pt iron, tibc still low Pain management Consultation Date/Type/Reason Admit Date/Time Jan 17, 2019 at 15:58 Initial Consult Date 01/18/19 Requesting Provider: IVAN AKHTAR MD Date/Time of Note DATE: 01/22/19 TIME: 16:12 24 HR Interval Summary Subjective hx not possible: pt non-verbal Exam/Review of Systems Exam Vitals Vital Signs Date Temp Pulse Resp B/P (MAP) Pulse Ox O2 O2 Flow FiO2 Time Delivery Rate 01/22/19 97.6 110 20 128/64 100 Nasal 15:09 (85) Cannula 01/22/19 3.0 14:31 01/18/19 21 09:23 Intake and Output 01/21/19 01/21/19 01/22/19 1515:00 23:00 07:00 IntakeIntake Total 690 ml 900 ml 200 ml OutputOutput Total 1200 ml 500 ml BalanceBalance 690 ml -300 ml -300 ml Psych: no complaints Cardiovascular: regular rate and rhythm, nl pulses Gastrointestinal: soft, nl liver, spleen, non-tender Extremities: normal pulses Results Result Diagram: 01/22/19 0957 01/22/19 0957 Results 24hrs Laboratory Tests Test 01/21/19 17:08 01/21/19 20:38 01/22/19 03:11 01/22/19 06:08 Bedside Glucose 175 203 185 White Blood Count 22.6 H Red Blood Count 2.69 L Hemoglobin 7.8 L Hematocrit 24.3 L Mean Corpuscular 90.3 Volume Mean Corpuscular 29.0 Hemoglobin Mean Corpuscular 32.1 Hemoglobin Concen t Red Cell 17.3 H Distribution Width Platelet Count 291 Mean Platelet 10.2 Volume Immature 1.100 H Granulocytes % Neutrophils % 88.7 H Lymphocytes % 4.5 L Monocytes % 5.4 Eosinophils % 0.1 Basophils % 0.2 Nucleated Red 0.0 Blood Cells % Immature 0.240 H Granulocytes # Neutrophils # 20.1 H Lymphocytes # 1.0 Monocytes # 1.2 H Eosinophils # 0.0 Basophils # 0.1 Nucleated Red 0.0 Blood Cells # Sodium Level 135 Potassium Level 4.5 Chloride Level 102 Carbon Dioxide 24 Level Anion Gap 9 Blood Urea 44 H Nitrogen Creatinine 1.37 H Est Glomerular Filtrat Rate mL/min Glucose Level 154 Calcium Level 8.4 Phosphorus Level 3.7 Magnesium Level 2.1 Test 01/22/19 07:53 01/22/19 09:30 01/22/19 09:35 01/22/19 09:57 Bedside Glucose 165 180 Blood Gas Blood arterial Specimen Source Arterial Blood 01/22/2019 9:40:38 Date Drawn AM Arterial Blood pH 7.324 L (Temp corrected) Arterial Blood 44.2 pCO2 (Temp correct) Arterial Blood 137.0 H pO2 (Temp corrected) Arterial Blood 22.5 HCO3 Arterial Blood -3.4 L Base Excess Arterial Blood 98.5 Oxygen Saturation Manuel Test ACCEPTAB Arterial Blood Left Radial Gas Puncture Site Arterial 0.3 Blood Carboxyhemo globin Arterial Blood 0.4 Methemoglobin Blood Gas A-a O2 46.7 H Differential Oxyhemoglobin 97.8 Percent Blood Gas 37.0 Temperature Blood Gas NASAL CANNULA Modality FiO2 33.0 Blood Gas TM Notified Whom Blood Gas 01/22/2019 9:49:14 Notified Time AM White Blood Count 23.5 H Red Blood Count 2.69 L Hemoglobin 8.0 L Hematocrit 24.6 L Mean Corpuscular 91.4 Volume Mean Corpuscular 29.7 Hemoglobin Mean Corpuscular 32.5 Hemoglobin Concen t Red Cell 17.6 H Distribution Width Platelet Count 272 Mean Platelet 9.8 Volume Immature 0.900 H Granulocytes % Neutrophils % 88.4 H Lymphocytes % 5.2 L Monocytes % 5.4 Eosinophils % 0.0 Basophils % 0.1 Nucleated Red 0.0 Blood Cells % Immature 0.210 H Granulocytes # Neutrophils # 20.7 H Lymphocytes # 1.2 Monocytes # 1.3 H Eosinophils # 0.0 Basophils # 0.0 Nucleated Red 0.0 Blood Cells # Prothrombin Time 20.7 H Prothrombin Time 1.6 Ratio INR International 1.77 Normalized Ratio Activated 37.9 H Partial Thrombopl ast Time Sodium Level 135 Potassium Level 4.5 Chloride Level 103 Carbon Dioxide 23 Level Anion Gap 9 Blood Urea 44 H Nitrogen Creatinine 1.35 H Est Glomerular Filtrat Rate mL/min Glucose Level 158 Hemoglobin A1c 5.4 Calcium Level 8.5 Total Bilirubin 0.3 Direct Bilirubin 0.00 Indirect 0.3 Bilirubin Aspartate Amino 10 #L Transf (AST/SGOT) Alanine 19 Aminotransferase (ALT/SGPT) Alkaline 60 Phosphatase Creatine Kinase < 20 L Creatine Kinase Index Creatinine Kinase 1.66 MB (Mass) Troponin I < 0.012 Total Protein 4.7 L Albumin 2.1 L Globulin 2.60 Albumin/Globulin 0.80 Ratio Triglycerides 43 Level Cholesterol Level < 50 L LDL Cholesterol, Calculated HDL Cholesterol 18 L Cholesterol/HDL Ratio Test 01/22/19 12:13 01/22/19 14:19 Bedside Glucose 172 Ammonia < 9 L Medications Medication Current Medications Docusate Sodium (Colace) 100 mg BID PO Last administered on 01/21/19at 20:24; Admin Dose 100 MG; Start 01/17/19 at 18:17 Lactulose (Enulose) 20 gm DAILY PRN PO CONSTIPATION; Start 01/17/19 at 18:17 Acetaminophen (Tylenol Tab) 650 mg Q4H PRN PO PAIN Last administered on 01/22/19 05:02; Admin Dose 650 MG; Start 01/17/19 at 18:17 Miscellaneous Information (Pending [facility] Order For Wound Care) This patient ramirez... PRN PRN XX WOUND CARE; Start 01/17/19 at 18:17 Diagnostic Test (Pha) (Accu-Chek) 1 ea AC MEALS AND BEDTIME XX Last administered on 01/22/19at 12:14; Admin Dose 1 EA; Start 01/17/19 at 18:17 Diagnostic Test (Pha) (Accu-Chek) 1 ea 02 XX Last administered on 01/22/19at 02 :00; Admin Dose 1 EA; Start 01/17/19 at 18:17 Albuterol/ Ipratropium (Duoneb) 3 ml Q2H RESP THERAPY PRN HHN SHORTNESS OF BREATH; Start 01/17/19 at 18:17 Atorvastatin Calcium (Lipitor) 40 mg QHS PO Last administered on 01/21/19at 20:23; Admin Dose 40 MG; Start 01/17/19 at 18:17 Bisacodyl (Dulcolax) 10 mg BID PRN PO CONSTIPATION; Start 01/17/19 at 18:17 Folic Acid (Folic Acid) 1 mg DAILY PO Last administered on 01/21/19at 09:34; Admin Dose 1 MG; Start 01/17/19 at 18:17 Insulin Aspart (Novolog Insulin Pen) NOVOLOG *MILD* ALGORITHM WITH MEALS BEDTIME SC Last administered on 01/22/19at 12:29; Admin Dose 1 UNIT; Start 01/17/19 at 18:17 Latanoprost (Xalatan) 1 drop HS BOTH EYES Last administered on 01/21/19at 20:31; Admin Dose 1 DROP; Start 01/17/19 at 18:17 Levothyroxine Sodium (Synthroid) 125 mcg BEFORE BREAKFAST PO Last administered on 01/22/19at 07:57; Admin Dose 125 MCG; Start 01/17/19 at 18:17 Metoprolol Tartrate (Lopressor) 50 mg BID PO Last administered on 01/21/19at 20:32; Admin Dose 50 MG; Start 01/17/19 at 18:17 Nitroglycerin (Nitroglycerin (Sl Tab) 0.4 Mg) 0.4 tab Q5M PRN SL CHEST PAIN; Start 01/17/19 at 18:17 Nystatin (Nystatin Powder) 1 applic BID TOP Last administered on 01/22/19at 12:18; Admin Dose 1 APPLIC; Start 01/17/19 at 18:17 Pantoprazole (Protonix Tab) 40 mg DAILY@06 PO Last administered on 01/22/19at 05:02; Admin Dose 40 MG; Start 01/17/19 at 18:17 IV Flush (NS 3 ml) 3 ml PER PROTOCOL IV ; Start 01/17/19 at 18:17 Terazosin HCl (Hytrin) 10 mg HS PO Last administered on 01/21/19at 20:33; Admin Dose 10 MG; Start 01/17/19 at 18:17 Miscellaneous Information 1 ea NOTE XX ; Start 01/17/19 at 18:17 Glucose (Glutose) 15 gm Q15M PRN PO DECREASED GLUCOSE; Start 01/17/19 at 18:17 Glucose (Glutose) 22.5 gm Q15M PRN PO DECREASED GLUCOSE; Start 01/17/19 at 18:17 Dextrose (D50w Syringe) 25 ml Q15M PRN IV DECREASED GLUCOSE; Start 01/17/19 at 18:17 Dextrose (D50w Syringe) 50 ml Q15M PRN IV DECREASED GLUCOSE; Start 01/17/19 at 18:17 Glucagon (Glucagen) 1 mg Q15M PRN IM DECREASED GLUCOSE; Start 01/17/19 at 18:17 Glucose (Glutose) 15 gm Q15M PRN BUCCAL DECREASED GLUCOSE; Start 01/17/19 at 18:17 Multivitamins Therapeutic (Theragran) 1 tab DAILY PO Last administered on 01/21/19 09:34; Admin Dose 1 TAB; Start 01/17/19 at 18:17 Zinc Sulfate (Zinc Sulfate) 220 mg DAILY PO Last administered on 01/21/19 09:35; Admin Dose 220 MG; Start 01/17/19 at 18:17 Ascorbic Acid (Vitamin C) 250 mg DAILY PO Last administered on 01/21/19 09:34; Admin Dose 250 MG; Start 01/17/19 at 18:17 Albuterol/ Ipratropium (Duoneb) 3 ml Q6H RESP THERAPY HHN Last administered on 01/22/19 14:31; Admin Dose 3 ML; Start 01/17/19 at 18:17 Multi-Ingredient Ointment (Aquaphor Oint 52.5 Gm) 1 applic BID TOP Last administered on 01/22/19 09:00; Admin Dose 1 APPLIC; Start 01/17/19 at 18:17 Aspirin (Aspirin) 81 mg DAILY PO Last administered on 01/21/19 09:34; Admin Dose 81 MG; Start 01/17/19 at 18:17 Ferrous Sulfate (Ferrous Sulfate (Ec)) 325 mg WITH MEALS PO Last administered on 01/22/19 07:57; Admin Dose 325 MG; Start 01/17/19 at 18:17 Bisacodyl (Dulcolax Supp) 10 mg DAILY PRN [place] CONSTIPATION; Start 01/17/19 at 18:17 Caspofungin 50 mg/ Sodium Chloride 250 ml @ 250 mls/hr Q24H IVPB Last administered on 01/21/19 18:21; Admin Dose 250 MLS/HR; Start 01/17/19 at 18:17 Zinc Acetate/ Diphenhydramine (Benadryl 2% Cr) 1 applic Q6H PRN TOP ITCHING; Start 01/19/19 at 16:37 Nystatin/ Triamcinolone Acetonide (Mycolog Cr) 1 applic BID TOP Last administered on 01/22/19 09:00; Admin Dose 1 APPLIC; Start 01/19/19 at 22:41 Dextrose 1,000 ml @ 40 mls/hr Q24H IV Last administered on 5/1/19at 02:39; Admin Dose 40 MLS/HR; Start 01/20/19 at 06:30 Epoetin Dae-epbx (RETACRIT(non-esrd)) 20,000 unit Mo@1700 SC Last administered on 01/20/19at 18:13; Admin Dose 20,000 UNIT; Start 01/20/19 at 17:00 Furosemide (Lasix) 20 mg DAILY IV Last administered on 01/21/19at 09:47; Admin D ose 20 MG; Start 01/21/19 at 09:00 IV Flush (NS 10 ml) 10 ml PRN PRN IV IV PROTOCOL; Start 01/20/19 at 14:30 Cyanocobalamin (Vitamin B12 Inj) 1,000 mcg Q7D IM ; Start 02/03/19 at 09:00 Cyanocobalamin (Vitamin B12 Inj) 1,000 mcg DAILY IM Last administered on 01/21/19at 09:38; Admin Dose 1,000 MCG; Start 01/21/19 at 09:00; Stop 01/27/19 at 09:00 Sodium Chloride 1,000 ml @ 50 mls/hr Q20H ONCE IV Last administered on 01/22/19at 15:31; Admin Dose 50 MLS/HR; Start 01/22/19 at 15:30; Stop 01/23/19 at 11:29 MICHELLE FROST MD January 22, 2019 16:13
--- NOTE | 2019-01-22 16:34 | CONS ---
Assessment/Plan Assessment/Plan Hospital Course (Demo Recall) IMPRESSION: 1. Atrial fibrillation, currently rate controlled.-off systemic anticoagulation due to anemia. ON asa only due to anemia 2. Possible congestive heart failure by chest x-ray, which will be diastolic, acute on chronic by most recent echo with an EF of 60%. 3. Tricuspid regurgitation, moderate by most recent echo. 4. Acute on chronic renal failure-mild worsening 5. Possible pneumonia. 6. History of coronary artery disease, status post coronary artery bypass graft surgery. 7. Dyslipidemia. 8. Rheumatoid arthritis. 9. Groin cellulitis. 10. Anemia-worsening again today requiring transfusions PRBC's.Now post-op s/p endoscopy ? findings 11. Diabetes mellitus. 12. Sepsis Recc: -Transferred to ICU now -serial ecg's -Continue BB as tolerated as was held this am due to lethargy -Baby asa as tolerated only -Patient is on IVF and lasix? -Continue statin -Continue abx's/antifungals and f/u cx data Consultation Date/Type/Reason Admit Date/Time Jan 17, 2019 at 15:58 Initial Consult Date 01/18/19 Type of Consult Cardiology Reason for Consultation CHF Requesting Provider: IVAN AKHTAR MD Date/Time of Note DATE: 01/22/19 TIME: 16:29 Exam/Review of Systems Vital Signs Vitals Vital Signs Date Temp Pulse Resp B/P (MAP) Pulse Ox O2 O2 Flow FiO2 Time Delivery Rate 01/22/19 97.6 110 20 128/64 100 Nasal 15:09 (85) Cannula 01/22/19 3.0 14:31 01/18/19 21 09:23 Intake and Output 01/21/19 01/21/19 01/22/19 1414:59 22:59 06:59 IntakeIntake Total 690 ml 900 ml 200 ml OutputOutput Total 1200 ml 500 ml BalanceBalance 690 ml -300 ml -300 ml Exam Exam Review of Systems: CONSTITUTIONAL: No fevers, chills. PULMONARY: No sob CARDIOVASCULAR: No chest pain/palpitations GASTROINTESTINAL: No nausea/vomiting. GENITOURINARY: No hematuria/dysuria. MUSCULOSKELETAL: No myagias/arthalgias. PSYCHIATRIC: The patient denies depression. NEUROLOGIC: No weakness Constitutional: other (sleeping) Psych: no complaints Head: normocephalic ENMT: mucosa pink and moist Neck: supple, jvd (9 cm) Respiratory: diminished breath sounds Cardiovascular: regular rate and rhythm Gastrointestinal: soft, non-tender Musculoskeletal: muscle weakness (generalized) Extremities: edema (diffusely) Skin: rash or lesions (with chaffing) Labs Result Diagram: 01/22/19 0957 01/22/19 0957 Results 24hrs Laboratory Tests Test 01/21/19 17:08 01/21/19 20:38 01/22/19 03:11 01/22/19 06:08 Bedside Glucose 175 203 185 White Blood Count 22.6 H Red Blood Count 2.69 L Hemoglobin 7.8 L Hematocrit 24.3 L Mean Corpuscular 90.3 Volume Mean Corpuscular 29.0 Hemoglobin Mean Corpuscular 32.1 Hemoglobin Concen t Red Cell 17.3 H Distribution Width Platelet Count 291 Mean Platelet 10.2 Volume Immature 1.100 H Granulocytes % Neutrophils % 88.7 H Lymphocytes % 4.5 L Monocytes % 5.4 Eosinophils % 0.1 Basophils % 0.2 Nucleated Red 0.0 Blood Cells % Immature 0.240 H Granulocytes # Neutrophils # 20.1 H Lymphocytes # 1.0 Monocytes # 1.2 H Eosinophils # 0.0 Basophils # 0.1 Nucleated Red 0.0 Blood Cells # Sodium Level 135 Potassium Level 4.5 Chloride Level 102 Carbon Dioxide 24 Level Anion Gap 9 Blood Urea 44 H Nitrogen Creatinine 1.37 H Est Glomerular Filtrat Rate mL/min Glucose Level 154 Calcium Level 8.4 Phosphorus Level 3.7 Magnesium Level 2.1 Test 01/22/19 07:53 01/22/19 09:30 01/22/19 09:35 01/22/19 09:57 Bedside Glucose 165 180 Blood Gas Blood arterial Specimen Source Arterial Blood 01/22/2019 9:40:38 Date Drawn AM Arterial Blood pH 7.324 L (Temp corrected) Arterial Blood 44.2 pCO2 (Temp correct) Arterial Blood 137.0 H pO2 (Temp corrected) Arterial Blood 22.5 HCO3 Arterial Blood -3.4 L Base Excess Arterial Blood 98.5 Oxygen Saturation Manuel Test ACCEPTAB Arterial Blood Left Radial Gas Puncture Site Arterial 0.3 Blood Carboxyhemo globin Arterial Blood 0.4 Methemoglobin Blood Gas A-a O2 46.7 H Differential Oxyhemoglobin 97.8 Percent Blood Gas 37.0 Temperature Blood Gas NASAL CANNULA Modality FiO2 33.0 Blood Gas TM Notified Whom Blood Gas 01/22/2019 9:49:14 Notified Time AM White Blood Count 23.5 H Red Blood Count 2.69 L Hemoglobin 8.0 L Hematocrit 24.6 L Mean Corpuscular 91.4 Volume Mean Corpuscular 29.7 Hemoglobin Mean Corpuscular 32.5 Hemoglobin Concen t Red Cell 17.6 H Distribution Width Platelet Count 272 Mean Platelet 9.8 Volume Immature 0.900 H Granulocytes % Neutrophils % 88.4 H Lymphocytes % 5.2 L Monocytes % 5.4 Eosinophils % 0.0 Basophils % 0.1 Nucleated Red 0.0 Blood Cells % Immature 0.210 H Granulocytes # Neutrophils # 20.7 H Lymphocytes # 1.2 Monocytes # 1.3 H Eosinophils # 0.0 Basophils # 0.0 Nucleated Red 0.0 Blood Cells # Prothrombin Time 20.7 H Prothrombin Time 1.6 Ratio INR International 1.77 Normalized Ratio Activated 37.9 H Partial Thrombopl ast Time Sodium Level 135 Potassium Level 4.5 Chloride Level 103 Carbon Dioxide 23 Level Anion Gap 9 Blood Urea 44 H Nitrogen Creatinine 1.35 H Est Glomerular Filtrat Rate mL/min Glucose Level 158 Hemoglobin A1c 5.4 Calcium Level 8.5 Total Bilirubin 0.3 Direct Bilirubin 0.00 Indirect 0.3 Bilirubin Aspartate Amino 10 #L Transf (AST/SGOT) Alanine 19 Aminotransferase (ALT/SGPT) Alkaline 60 Phosphatase Creatine Kinase < 20 L Creatine Kinase Index Creatinine Kinase 1.66 MB (Mass) Troponin I < 0.012 Total Protein 4.7 L Albumin 2.1 L Globulin 2.60 Albumin/Globulin 0.80 Ratio Triglycerides 43 Level Cholesterol Level < 50 L LDL Cholesterol, Calculated HDL Cholesterol 18 L Cholesterol/HDL Ratio Test 01/22/19 12:13 01/22/19 14:19 Bedside Glucose 172 Ammonia < 9 L Medications Medications Current Medications Docusate Sodium (Colace) 100 mg BID PO Last administered on 01/21/19at 20:24; Admin Dose 100 MG; Start 01/17/19 at 18:17 Lactulose (Enulose) 20 gm DAILY PRN PO CONSTIPATION; Start 01/17/19 at 18:17 Acetaminophen (Tylenol Tab) 650 mg Q4H PRN PO PAIN Last administered on 01/22/19at 05:02; Admin Dose 650 MG; Start 01/17/19 at 18:17 Miscellaneous Information ([facility] This patient ramirez... PRN PRN XX WOUND CARE; Start 01/17/19 at 18:17 Diagnostic Test (Pha) (Accu-Chek) 1 ea AC MEALS AND BEDTIME XX Last adm inistered on 01/22/19at 12:14; Admin Dose 1 EA; Start 01/17/19 at 18:17 Diagnostic Test (Pha) (Accu-Chek) 1 ea 02 XX Last administered on 01/22/19 02:00; Admin Dose 1 EA; Start 01/17/19 at 18:17 Albuterol/ Ipratropium (Duoneb) 3 ml Q2H RESP THERAPY PRN HHN SHORTNESS OF BREATH; Start 01/17/19 at 18:17 Atorvastatin Calcium (Lipitor) 40 mg QHS PO Last administered on 01/21/19 20:23; Admin Dose 40 MG; Start 01/17/19 at 18:17 Bisacodyl (Dulcolax) 10 mg BID PRN PO CONSTIPATION; Start 01/17/19 at 18:17 Folic Acid (Folic Acid) 1 mg DAILY PO Last administered on 01/21/19 09:34; Admin Dose 1 MG; Start 01/17/19 at 18:17 Insulin Aspart (Novolog Insulin Pen) NOVOLOG *MILD* ALGORITHM WITH MEALS BEDT VENESSA SC Last administered on 01/22/19 12:29; Admin Dose 1 UNIT; Start 01/17/19 at 18:17 Latanoprost (Xalatan) 1 drop HS BOTH EYES Last administered on 01/21/19 20:31; Admin Dose 1 DROP; Start 01/17/19 at 18:17 Levothyroxine Sodium (Synthroid) 125 mcg BEFORE BREAKFAST PO Last administered on 01/22/19 07:57; Admin Dose 125 MCG; Start 01/17/19 at 18:17 Metoprolol Tartrate (Lopressor) 50 mg BID PO Last administered on 01/21/19 20:32; Admin Dose 50 MG; Start 01/17/19 at 18:17 Nitroglycerin (Nitroglycerin (Sl Tab) 0.4 Mg) 0.4 tab Q5M PRN SL CHEST PAIN; Start 01/17/19 at 18:17 Nystatin (Nystatin Powder) 1 applic BID TOP Last administered on 01/22/19at 12:18; Admin Dose 1 APPLIC; Start 01/17/19 at 18:17 Pantoprazole (Protonix Tab) 40 mg DAILY@06 PO Last administered on 01/22/19at 05:02; Admin Dose 40 MG; Start 01/17/19 at 18:17 IV Flush (NS 3 ml) 3 ml PER PROTOCOL IV ; Start 01/17/19 at 18:17 Terazosin HCl (Hytrin) 10 mg HS PO Last administered on 01/21/19at 20:33; Admin Dose 10 MG; Start 01/17/19 at 18:17 Miscellaneous Information 1 ea NOTE XX ; Start 01/17/19 at 18:17 Glucose (Glutose) 15 gm Q15M PRN PO DECREASED GLUCOSE; Start 01/17/19 at 18:17 Glucose (Glutose) 22.5 gm Q15M PRN PO DECREASED GLUCOSE; Start 01/17/19 at 18:17 Dextrose (D50w Syringe) 25 ml Q15M PRN IV DECREASED GLUCOSE; Start 01/17/19 at 18:17 Dextrose (D50w Syringe) 50 ml Q15M PRN IV DECREASED GLUCOSE; Start 01/17/19 at 18:17 Glucagon (Glucagen) 1 mg Q15M PRN IM DECREASED GLUCOSE; Start 01/17/19 at 18:17 Glucose (Glutose) 15 gm Q15M PRN BUCCAL DECREASED GLUCOSE; Start 01/17/19 at 18:17 Multivitamins Therapeutic (Theragran) 1 tab DAILY PO Last administered on 01/21/19at 09:34; Admin Dose 1 TAB; Start 01/17/19 at 18:17 Zinc Sulfate (Zinc Sulfate) 220 mg DAILY PO Last administered on 01/21/19at 09:35; Admin Dose 220 MG; Start 01/17/19 at 18:17 Ascorbic Acid (Vitamin C) 250 mg DAILY PO Last administered on 01/21/19 09:34; Admin Dose 250 MG; Start 01/17/19 at 18:17 Albuterol/ Ipratropium (Duoneb) 3 ml Q6H RESP THERAPY HHN Last administered on 01/22/19at 14:31; Admin Dose 3 ML; Start 01/17/19 at 18:17 Multi-Ingredient Ointment (Aquaphor Oint 52.5 Gm) 1 applic BID TOP Last administered on 01/22/19 09:00; Admin Dose 1 APPLIC; Start 01/17/19 at 18:17 Aspirin (Aspirin) 81 mg DAILY PO Last administered on 01/21/19 09:34; Admin Dose 81 MG; Start 01/17/19 at 18:17 Ferrous Sulfate (Ferrous Sulfate (Ec)) 325 mg WITH MEALS PO Last administered on 01/22/19 07:57; Admin Dose 325 MG; Start 01/17/19 at 18:17 Bisacodyl (Dulcolax Supp) 10 mg DAILY PRN [place] CONSTIPATION; Start 01/17/19 at 18:17 Caspofungin 50 mg/ Sodium Chloride 250 ml @ 250 mls/hr Q24H IVPB Last administered on 01/21/19 18:21; Admin Dose 250 MLS/HR; Start 01/17/19 at 18:17 Zinc Acetate/ Diphenhydramine (Benadryl 2% Cr) 1 applic Q6H PRN TOP ITCHING; Start 01/19/19 at 16:37 Nystatin/ Triamcinolone Acetonide (Mycolog Cr) 1 applic BID TOP Last administered on 01/22/19 09:00; Admin Dose 1 APPLIC; Start 01/19/19 at 22:41 Dextrose 1,000 ml @ 40 mls/hr Q24H IV Last administered on 01/22/19 02:39; Admin Dose 40 MLS/HR; Start 01/20/19 at 06:30 Epoetin Dae-epbx (RETACRIT(non-esrd)) 20,000 unit Mo@1700 SC Last administered on 01/20/19 18:13; Admin Dose 20,000 UNIT; Start 01/20/19 at 17:00 Furosemide (Lasix) 20 mg DAILY IV Last administered on 01/21/19 09:47; Admin Dose 20 MG; Start 01/21/19 at 09:00 IV Flush (NS 10 ml) 10 ml PRN PRN IV IV PROTOCOL; Start 01/20/19 at 14:30 Cyanocobalamin (Vitamin B12 Inj) 1,000 mcg Q7D IM ; Start 02/03/19 at 09:00 Cyanocobalamin (Vitamin B12 Inj) 1,000 mcg DAILY IM Last administered on 01/21/19 09:38; Admin Dose 1,000 MCG; Start 01/21/19 at 09:00; Stop 01/27/19 at 09:00 Sodium Chloride 1,000 ml @ 50 mls/hr Q20H ONCE IV Last administered on 01/22/19at 15:31; Admin Dose 50 MLS/HR; Start 01/22/19 at 15:30; Stop 01/23/19 at 11:29 MARJORIE JAIN January 22, 2019 16:34
[2019-01-22] MEDS ORDERED: DIGOXIN 500 MCG INJ IV ONE (17:00)
[2019-01-22] MEDS: CASPOFUNGIN 50 MG in SOD CHLORIDE 0.9% 250 ML IVPB SCH (17:51)
[2019-01-22] MEDS ORDERED: morphine 2 MG INJ IV ONE (18:30)
[2019-01-22] MEDS: TERAZOSIN 5 MG CAP PO SCH (21:00)
[2019-01-22] MEDS: ATORVASTATIN 40 MG TAB PO SCH (21:00)
[2019-01-22] MEDS: LATANOPROST 0.005% 2.5 ML OPH BOTH EYES SCH (21:19)
[2019-01-23] VITALS (12 sets, daily range): BP systolic 109–149; BP diastolic 52–65; PULSE 63–134; RESP 18–20
[2019-01-23] MEDS: ALBUTEROL/IPRATROPIUM (NEB) 3 ML AMP HHN SCH ×5 (01:36→20:16)
[2019-01-23] MEDS: ACCU-CHEK XX SCH ×5 (02:00→21:19)
[2019-01-23] MEDS: PANTOPRAZOLE (EC) 40 MG TAB PO SCH (06:00)
[2019-01-23] MEDS: INSULIN ASPART [NOVOLOG] 3 ML PEN SC SCH ×4 (07:55→21:00)
[2019-01-23] MEDS: AQUAPHOR 52.5 GM OINT TOP SCH ×2 (09:00→21:00)
[2019-01-23] MEDS: FUROSEMIDE 20 MG INJ IV SCH (09:07)
[2019-01-23] MEDS: ZINC SULFATE 220 MG CAP PO SCH (09:08)
[2019-01-23] MEDS: ASPIRIN 81 MG TAB PO SCH (09:08)
[2019-01-23] MEDS: FERROUS SULFATE (EC) 325 MG TAB PO SCH ×3 (09:08→17:34)
[2019-01-23] MEDS: ACETAMINOPHEN 325 MG TAB PO PRN ×3 (09:08→22:48)
[2019-01-23] MEDS: DOCUSATE SODIUM 100 MG CAP PO SCH ×2 (09:08→21:14)
[2019-01-23] MEDS: FOLIC ACID 1 MG TAB PO SCH (09:08)
[2019-01-23] MEDS: ASCORBIC ACID 250 MG TAB PO SCH (09:08)
[2019-01-23] MEDS: LEVOTHYROXINE 125 MCG TAB PO SCH (09:08)
[2019-01-23] MEDS: MULTIVITAMINS THERAPEUTIC TAB PO SCH (09:08)
[2019-01-23] MEDS: METOPROLOL 50 MG TAB PO SCH ×2 (09:09→21:15)
[2019-01-23] MEDS: CYANOCOBALAMIN 1000 MCG INJ IM SCH (09:09)
[2019-01-23] MEDS: DEXTROSE 5% 1,000 ML IV SCH (09:10)
[2019-01-23] MEDS: BALSAM PERU/CASTOR OIL 60 GM TUBE TOP SCH ×2 (09:10→21:19)
[2019-01-23] MEDS: NYSTATIN/TRIAMCINOLONE 15 GM CR TOP SCH ×2 (09:11→21:20)
[2019-01-23] MEDS: NYSTATIN 30 GM POWDER BTL TOP SCH ×2 (09:11→21:19)
--- NOTE | 2019-01-23 10:27 | PN ---
Date/Time of Note Date/Time of Note DATE: 01/23/19 TIME: 10:27 Assessment/Plan VTE Prophylaxis Risk score (from Ns)>0 risk: 7 SCD applied (from [facility]): Yes Pharmacological prophylaxis: NA/contraindicated Pharm contraindication: low risk/ambulating Lines/Catheters IV Catheter Type ([facility] Peripheral IV Urinary Cath still in place: Yes Reason Cath still needed: urinary retention Assessment/Plan Assessment/Plan ospital Course 1. Sepsis, WBC elevated , lactic acidosis WITH WBC 24 >22 2. Severe anemia? multifactorial L iron versus vitamin B12 versus anemia of chronic disease 3. Acute on chronic renal failure chronic renal failure likely secondary to sepsis 4. Hypertension. 5. Hyperlipidemia. 6. Hypothyroidism. 7. Normocytic normochromic chronic anemia with recent hemoglobin drop. 8. Bilateral groin cellulitis more likely associated with mateus, patches in groin and axilla bilaterally. Back rash 9. History of rheumatoid arthritis with joint deformities. 10. Diabetes type 2. 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 Peripheral vascular disease. 13. Chronic a.fib 14. right arm edema 15. Neoplasm per CT abdomen. 4.3 cm cystic lesion along the pancreas body, enlarged since 10/10/2012 (previously 2.4 cm). 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 Possible allergic skin reaction 17 altered mental status delirium vs stroke Assessment/Plan - MRI and MRA pending - mental status much improved today - fu Neuro recs -on ASA.statin -WBC high, on IV antibiotics per ID no source yet though - iv caspofungin - neuro check -cw on Epogen per oncology -oncology consul dr Lorenzo aware:he said Ca 19-9 is negative indicating unlikely malignant. This may be a pseudocyst or a precancerous pancreatic lesion. It has been growing in size but patient is asymptomatic. EUS with biopsy is recommended and can either be done inpatient or outpatient setting. The patient at this time is unlikely a candidate for a Whipple surgery however. -skin care -transfuse hemoglobin less than 7 -IV Lasix Result Diagram: 01/23/19 0610 01/23/19 0613 Results 24hrs Laboratory Tests Test 01/22/19 12:13 01/22/19 14:19 01/22/19 16:00 01/22/19 17:48 Bedside Glucose 172 161 Ammonia < 9 L Urine Color YELLOW Urine Clarity SLIGHTLY CLOUDY A Urine pH 5.0 Urine Specific 1.016 [place] Urine Ketones NEGATIVE Urine Nitrite NEGATIVE Urine Bilirubin NEGATIVE Urine NEGATIVE Urobilinogen Urine Leukocyte NEGATIVE Esterase Urine 12 H Microscopic RBC Urine 5 Microscopic WBC Urine Hemoglobin 2+ H Urine Glucose NEGATIVE Urine Total NEGATIVE Protein Urine Opiates Positive Screen Urine Negative Barbiturates Urine Negative Amphetamines Screen Urine Negative Benzodiazepines Screen Urine Cocaine Negative Screen Urine Negative Cannabinoids Test 01/22/19 19:52 01/23/19 06:10 01/23/19 06:13 01/23/19 08:24 Bedside Glucose 144 White Blood 21.2 H Count Red Blood Count 2.53 L Hemoglobin 7.5 L Hematocrit 23.4 L Mean Corpuscular 92.5 Volume Mean Corpuscular 29.6 Hemoglobin Mean Corpuscular 32.1 Hemoglobin June nt Red Cell 17.6 H Distribution Width Platelet Count 275 Mean Platelet 10.2 Volume Immature 0.800 H Granulocytes % Neutrophils % 89.1 H Lymphocytes % 5.0 L Monocytes % 4.8 Eosinophils % 0.1 Basophils % 0.2 Nucleated Red 0.0 Blood Cells % Immature 0.170 H Granulocytes # Neutrophils # 18.9 H Lymphocytes # 1.1 Monocytes # 1.0 H Eosinophils # 0.0 Basophils # 0.0 Nucleated Red 0.0 Blood Cells # Sodium Level 138 Potassium Level 4.1 Chloride Level 104 Carbon Dioxide 26 Level Anion Gap 8 Blood Urea 40 H Nitrogen Creatinine 1.22 Est Glomerular Filtrat Rate mL/min Glucose Level 113 # Calcium Level 8.6 Lab Scanned BLOOD TRANSFUSIO Report N Subjective 24 Hr Interval Summary Free Text/Dictation MRI could not be done yesterday as pt could not tolerate it pt was much more awake today, answering some questions some weakness in rt arm Dr ring spoke to radiolgy new MRI with contrast is less renal toxic in CKD pts Exam/Review of Systems Exam Vitals Vital Signs Date Temp Pulse Resp B/P (MAP) Pulse Ox O2 O2 Flow FiO2 Time Delivery Rate 01/23/19 114 08:00 01/23/19 20 98 Nasal 2.0 07:38 Cannula 01/23/19 97.0 149/65 07:16 (93) Intake and Output 01/22/19 01/22/19 01/23/19 1515:00 23:00 07:00 OutputOutput Total 250 ml 400 ml BalanceBalance -250 ml -400 ml Exam Resultsxam onstitutional: Awake and oriented x2 Head: normocephalic Eyes: nl conjunctiva ENMT: nl external ears & nose Cardiovascular: regular rate and rhythm Gastrointestinal: soft Genitourinary - Male: other (rinaldi) Skin: other (severe redness of skin) sloughing of the skin drug rash ? Swelling of the legs abdominal distention weakness of rt arm Results Results 24hrs Laboratory Tests Test 01/22/19 12:13 01/22/19 14:19 01/22/19 16:00 01/22/19 17:48 Bedside Glucose 172 161 Ammonia < 9 L Urine Color YELLOW Urine Clarity SLIGHTLY CLOUDY A Urine pH 5.0 Urine Specific 1.016 [place] Urine Ketones NEGATIVE Urine Nitrite NEGATIVE Urine Bilirubin NEGATIVE Urine NEGATIVE Urobilinogen Urine Leukocyte NEGATIVE Esterase Urine 12 H Microscopic RBC Urine 5 Microscopic WBC Urine Hemoglobin 2+ H Urine Glucose NEGATIVE Urine Total NEGATIVE Protein Urine Opiates Positive Screen Urine Negative Barbiturates Urine Negative Amphetamines Screen Urine Negative Benzodiazepines Screen Urine Cocaine Negative Screen Urine Negative Cannabinoids Test 01/22/19 19:52 01/23/19 06:10 01/23/19 06:13 01/23/19 08:24 Bedside Glucose 144 White Blood 21.2 H Count Red Blood Count 2.53 L Hemoglobin 7.5 L Hematocrit 23.4 L Mean Corpuscular 92.5 Volume Mean Corpuscular 29.6 Hemoglobin Mean Corpuscular 32.1 Hemoglobin June nt Red Cell 17.6 H Distribution Width Platelet Count 275 Mean Platelet 10.2 Volume Immature 0.800 H Granulocytes % Neutrophils % 89.1 H Lymphocytes % 5.0 L Monocytes % 4.8 Eosinophils % 0.1 Basophils % 0.2 Nucleated Red 0.0 Blood Cells % Immature 0.170 H Granulocytes # Neutrophils # 18.9 H Lymphocytes # 1.1 Monocytes # 1.0 H Eosinophils # 0.0 Basophils # 0.0 Nucleated Red 0.0 Blood Cells # Sodium Level 138 Potassium Level 4.1 Chloride Level 104 Carbon Dioxide 26 Level Anion Gap 8 Blood Urea 40 H Nitrogen Creatinine 1.22 Est Glomerular Filtrat Rate mL/min Glucose Level 113 # Calcium Level 8.6 Lab Scanned BLOOD TRANSFUSIO Report N Medications Medication Current Medications Docusate Sodium (Colace) 100 mg BID PO Last administered on 01/23/19at 09:08; Admin Dose 100 MG; Start 01/17/19 at 18:17 Lactulose (Enulose) 20 gm DAILY PRN PO CONSTIPATION; Start 01/17/19 at 18:17 Acetaminophen (Tylenol Tab) 650 mg Q4H PRN PO PAIN Last administered on 01/23/19 09:08; Admin Dose 650 MG; Start 01/17/19 at 18:17 Miscellaneous Information (Pending Santyl Order For Wound Care) This patient ramirez. .. PRN PRN XX WOUND CARE; Start 01/17/19 at 18:17 Diagnostic Test (Pha) (Accu-Chek) 1 ea AC MEALS AND BEDTIME XX Last administered on 01/22/19 21:21; Admin Dose 1 EA; Start 01/17/19 at 18:17 Diagnostic Test (Pha) (Accu-Chek) 1 ea 02 XX Last administered on 01/22/19 02:00; Admin Dose 1 EA; Start 01/17/19 at 18:17 Albuterol/ Ipratropium (Duoneb) 3 ml Q2H RESP THERAPY PRN HHN SHORTNESS OF BREATH; Start 01/17/19 at 18:17 Atorvastatin Calcium (Lipitor) 40 mg QHS PO Last administered on 01/21/19 20:23; Admin Dose 40 MG; Start 01/17/19 at 18:17 Bisacodyl (Dulcolax) 10 mg BID PRN PO CONSTIPATION; Start 01/17/19 at 18:17 Folic Acid (Folic Acid) 1 mg DAILY PO Last administered on 01/23/19 09:08; Admin Dose 1 MG; Start 01/17/19 at 18:17 Insulin Aspart (Novolog Insulin Pen) NOVOLOG *MILD* ALGORITHM WITH MEALS BEDTIME SC Last administered on 01/22/19 17:58; Admin Dose 1 UNIT; Start 01/17/19 at 18:17 Latanoprost (Xalatan) 1 drop HS BOTH EYES Last administered on 01/22/19 21:19; Admin Dose 1 DROP; Start 01/17/19 at 18:17 Levothyroxine Sodium (Synthroid) 125 mcg BEFORE BREAKFAST PO Last administered on 01/23/19 09:08; Admin Dose 125 MCG; Start 01/17/19 at 18:17 Metoprolol Tartrate (Lopressor) 50 mg BID PO Last administered on 01/23/19 09:09; Admin Dose 50 MG; Start 01/17/19 at 18:17 Nitroglycerin (Nitroglycerin (Sl Tab) 0.4 Mg) 0.4 tab Q5M PRN SL CHEST PAIN; Start 01/17/19 at 18:17 Nystatin (Nystatin Powder) 1 applic BID TOP Last administered on 01/23/19 09:11; Admin Dose 1 APPLIC; Start 01/17/19 at 18:17 Pantoprazole (Protonix Tab) 40 mg DAILY@06 PO Last administered on 01/22/19at 05:02; Admin Dose 40 MG; Start 01/17/19 at 18:17 IV Flush (NS 3 ml) 3 ml PER PROTOCOL IV ; Start 01/17/19 at 18:17 Terazosin HCl (Hytrin) 10 mg HS PO Last administered on 01/21/19at 20:33; Admin Dose 10 MG; Start 01/17/19 at 18:17 Miscellaneous Information 1 ea NOTE XX ; Start 01/17/19 at 18:17 Glucose (Glutose) 15 gm Q15M PRN PO DECREASED GLUCOSE; Start 01/17/19 at 18:17 Glucose (Glutose) 22.5 gm Q15M PRN PO DECREASED GLUCOSE; Start 01/17/19 at 18:17 Dextrose (D50w Syringe) 25 ml Q15M PRN IV DECREASED GLUCOSE; Start 01/17/19 at 18:17 Dextrose (D50w Syringe) 50 ml Q15M PRN IV DECREASED GLUCOSE; Start 01/17/19 at 18:17 Glucagon (Glucagen) 1 mg Q15M PRN IM DECREASED GLUCOSE; Start 01/17/19 at 18:17 Glucose (Glutose) 15 gm Q15M PRN BUCCAL DECREASED GLUCOSE; Start 01/17/19 at 18 :17 Multivitamins Therapeutic (Theragran) 1 tab DAILY PO Last administered on 01/23/19 09:08; Admin Dose 1 TAB; Start 01/17/19 at 18:17 Zinc Sulfate (Zinc Sulfate) 220 mg DAILY PO Last administered on 01/23/19 09:08; Admin Dose 220 MG; Start 01/17/19 at 18:17 Ascorbic Acid (Vitamin C) 250 mg DAILY PO Last administered on 01/23/19 09:08; Admin Dose 250 MG; Start 01/17/19 at 18:17 Albuterol/ Ipratropium (Duoneb) 3 ml Q6H RESP THERAPY HHN Last administered on 01/23/19 07:38; Admin Dose 3 ML; Start 01/17/19 at 18:17 Multi-Ingredient Ointment (Aquaphor Oint 52.5 Gm) 1 applic BID TOP Last admi nistered on 01/22/19 21:21; Admin Dose 1 APPLIC; Start 01/17/19 at 18:17 Aspirin (Aspirin) 81 mg DAILY PO Last administered on 01/23/19 09:08; Admin Dose 81 MG; Start 01/17/19 at 18:17 Ferrous Sulfate (Ferrous Sulfate (Ec)) 325 mg WITH MEALS PO Last administered on 01/23/19 09:08; Admin Dose 325 MG; Start 01/17/19 at 18:17 Bisacodyl (Dulcolax Supp) 10 mg DAILY PRN [place] CONSTIPATION; Start 01/17/19 at 18:17 Caspofungin 50 mg/ Sodium Chloride 250 ml @ 250 mls/hr Q24H IVPB Last administered on 01/22/19 17:51; Admin Dose 250 MLS/HR; Start 01/17/19 at 18:17 Zinc Acetate/ Diphenhydramine (Benadryl 2% Cr) 1 applic Q6H PRN TOP ITCHING; Start 01/19/19 at 16:37 Nystatin/ Triamcinolone Acetonide (Mycolog Cr) 1 applic BID TOP Last administered on 01/23/19 09:11; Admin Dose 1 APPLIC; Start 01/19/19 at 22:41 Dextrose 1,000 ml @ 40 mls/hr Q24H IV Last administered on 01/23/19 09:10; Admin Dose 40 MLS/HR; Start 01/20/19 at 06:30 Epoetin Dae-epbx (RETACRIT(non-esrd)) 20,000 unit Mo@1700 SC Last administered on 01/20/19 18:13; Admin Dose 20,000 UNIT; Start 01/20/19 at 17:00 Furosemide (Lasix) 20 mg DAILY IV Last administered on 01/23/19 09:07; Admin Dose 20 MG; Start 01/21/19 at 09:00 IV Flush (NS 10 ml) 10 ml PRN PRN IV IV PROTOCOL; Start 01/20/19 at 14:30 Cyanocobalamin (Vitamin B12 Inj) 1,000 mcg Q7D IM ; Start 02/03/19 at 09:00 Cyanocobalamin (Vitamin B12 Inj) 1,000 mcg DAILY IM Last administered on 01/23/19at 09:09; Admin Dose 1,000 MCG; Start 01/21/19 at 09:00; Stop 01/27/19 at 09:00 Sodium Chloride 1,000 ml @ 50 mls/hr Q20H ONCE IV Last administered on 01/22/19at 15:31; Admin Dose 50 MLS/HR; Start 01/22/19 at 15:30; Stop 01/23/19 at 11:29 IVAN AKHTAR MD January 23, 2019 10:27
--- NOTE | 2019-01-23 12:09 | CONS ---
Assessment/Plan Assessment/Plan Assessment/Plan (Daily) Assessment/Plan Assessment/Plan Hospital Course (Demo Recall) 88 yo male presents from [place] [facility] for SOB and febrile Interval hx: Pending morning labs. M 1. Severe anemia likely due to chronic disease, last work up while admitted to [facility] about a week ago was neg for GI bleeding, including EGD/colon which was done -s/p EGD and colonoscopy by Dr Frost 01/09/19 which didn't find an obvious GI etiology to explain anemia. AVM or a small lesion could be missed due to poor prep. Pt likely needs capsule endoscopy -Neg fob, elevate retic, Low iron, tibc, [place] [id number] 2. Cystic lesion along pancreas body - 4.3 cm cystic lesion along the pancreas body, enlarged since 10/10/2012 (previously 2.4 cm). 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 -CEA wnl 3. Severe gastritis 4. Hemorrhoids 5. Hital hernia 6. A fib, -eliquis was stopped 01/06 during previous admission, on ASA 7. COPD 8. HTN 9. Hypothyroidism 10. Bilateral groin cellulitis 11. Rheumatoid arthritis. 12. Diabetes mellitus. 13. Peripheral vascular disease. 14. CHF 15. 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 Sepsis- Leukocytosis up to 29, urine cx was unremarkable CT Abd 01/15/19 IMPRESSION: 1. No intra-abdominal inflammation or lymphadenopathy. 2. 4.3 cm cystic lesion along the pancreas body, enlarged since 10/10/2012 (previously 2.4 cm). 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 If clinically warranted, this could be further evaluated with contrast-enhanced MRI. 3. No obstructive uropathy or urinary stone. 4. Enlarged prostate gland. Correlation with PSA level is recommended. 5. Moderate atherosclerotic arterial calcifications. 6. Diffuse subcutaneous edema. 7. Status post posterior decompression and fusion at L5-S1. A malpositioned pedicle screw and impinges on the left L4-5 neural foramen, unchanged. 8. Grade 2 degenerative L4 anterolisthesis and grade 1 degenerative L5 anterolisthesis. 9. Questionable CVA Plan Stop miralax for mx bm, hold laxatives for diarrhea Recommend carranza cx Pt will need outpatient EUS to evaluate pancreatic cystic lesion, this can be done as an outpatient at outside facility by me Recommend capsule endoscopy as outpatient GI prophylaxis: protonix QD Continue Iron, consider IV iron since pt iron, tibc still low Pain management Consultation Date/Type/Reason Admit Date/Time Jan 17, 2019 at 15:58 Initial Consult Date 01/18/19 Requesting Provider: IVAN AKHTAR MD Date/Time of Note DATE: 01/23/19 TIME: 12:08 24 HR Interval Summary Free Text/Dictation Patient is articulating now but appears somewhat confused Constitutional: no complaints Exam/Review of Systems Exam Vitals Vital Signs Date Temp Pulse Resp B/P (MAP) Pulse Ox O2 O2 Flow FiO2 Time Delivery Rate 01/23/19 97.0 72 18 109/52 100 Nasal 11:44 (71) Cannula 01/23/19 2.0 07:38 Intake and Output 01/22/19 01/22/19 01/23/19 1515:00 23:00 07:00 OutputOutput Total 250 ml 400 ml BalanceBalance -250 ml -400 ml Constitutional: alert, oriented, well developed Psych: no complaints, nl mood/affect Head: normocephalic, atraumatic Eyes: nl conjunctiva, EOMI, nl lids, nl sclera, PERRL ENMT: nl external ears & nose, nl lips & teeth, nl nasal mucosa & septum Neck: supple, non-tender Respiratory: clear to auscultation, normal air movement Cardiovascular: regular rate and rhythm, nl pulses Gastrointestinal: soft, nl liver, spleen, non-tender Musculoskeletal: nl extremities to inspection, nl gait and stance Extremities: normal pulses Neurological: AUTOMATION TEST DEVELOPER II-XII intact, nl mental status, nl speech, nl strength Skin: nl turgor; No rash or lesions Lymph: nl lymph nodes Results Result Diagram: 01/23/19 0610 01/23/19 0613 Results 24hrs Laboratory Tests Test 01/22/19 12:13 01/22/19 14:19 01/22/19 16:00 01/22/19 17:48 Bedside Glucose 172 161 Ammonia < 9 L Urine Color YELLOW Urine Clarity SLIGHTLY CLOUDY A Urine pH 5.0 Urine Specific 1.016 [place] Urine Ketones NEGATIVE Urine Nitrite NEGATIVE Urine Bilirubin NEGATIVE Urine NEGATIVE Urobilinogen Urine Leukocyte NEGATIVE Esterase Urine 12 H Microscopic RBC Urine 5 Microscopic WBC Urine Hemoglobin 2+ H Urine Glucose NEGATIVE Urine Total NEGATIVE Protein Urine Opiates Positive Screen Urine Negative Barbiturates Urine Negative Amphetamines Screen Urine Negative Benzodiazepines Screen Urine Cocaine Negative Screen Urine Negative Cannabinoids Test 01/22/19 19:52 01/23/19 06:10 01/23/19 06:13 01/23/19 08:24 Bedside Glucose 144 White Blood 21.2 H Count Red Blood Count 2.53 L Hemoglobin 7.5 L Hematocrit 23.4 L Mean Corpuscular 92.5 Volume Mean Corpuscular 29.6 Hemoglobin Mean Corpuscular 32.1 Hemoglobin June nt Red Cell 17.6 H Distribution Width Platelet Count 275 Mean Platelet 10.2 Volume Immature 0.800 H Granulocytes % Neutrophils % 89.1 H Lymphocytes % 5.0 L Monocytes % 4.8 Eosinophils % 0.1 Basophils % 0.2 Nucleated Red 0.0 Blood Cells % Immature 0.170 H Granulocytes # Neutrophils # 18.9 H Lymphocytes # 1.1 Monocytes # 1.0 H Eosinophils # 0.0 Basophils # 0.0 Nucleated Red 0.0 Blood Cells # Sodium Level 138 Potassium Level 4.1 Chloride Level 104 Carbon Dioxide 26 Level Anion Gap 8 Blood Urea 40 H Nitrogen Creatinine 1.22 Est Glomerular Filtrat Rate mL/min Glucose Level 113 # Calcium Level 8.6 Lab Scanned BLOOD TRANSFUSIO Report N Test 01/23/19 12:02 Bedside Glucose 141 Medications Medication Current Medications Docusate Sodium (Colace) 100 mg BID PO Last administered on 01/23/19at 09:08; Admin Dose 100 MG; Start 01/17/19 at 18:17 Lactulose (Enulose) 20 gm DAILY PRN PO CONSTIPATION; Start 01/17/19 at 18:17 Acetaminophen (Tylenol Tab) 650 mg Q4H PRN PO PAIN Last administered on 01/23/19at 09:08; Admin Dose 650 MG; Start 01/17/19 at 18:17 Miscellaneous Information (Pending Santyl Order For Wound Care) This patient ramirez... PRN PRN XX WOUND CARE; Start 01/17/19 at 18:17 Diagnostic Test (Pha) (Accu-Chek) 1 ea AC MEALS AND BEDTIME XX Last administered on 01/23/19at 11:20; Admin Dose 1 EA; Start 01/17/19 at 18:17 Diagnostic Test (Pha) (Accu-Chek) 1 ea 02 XX Last administered on 01/22/19 02:00; Admin Dose 1 EA; Start 01/17/19 at 18:17 Albuterol/ Ipratropium (Duoneb) 3 ml Q2H RESP THERAPY PRN HHN SHORTNESS OF BREATH; Start 01/17/19 at 18:17 Atorvastatin Calcium (Lipitor) 40 mg QHS PO Last administered on 01/21/19 20:23; Admin Dose 40 MG; Start 01/17/19 at 18:17 Bisacodyl (Dulcolax) 10 mg BID PRN PO CONSTIPATION; Start 01/17/19 at 18:17 Folic Acid (Folic Acid) 1 mg DAILY PO Last administered on 01/23/19 09:08; Admin Dose 1 MG; Start 01/17/19 at 18:17 Insulin Aspart (Novolog Insulin Pen) NOVOLOG *MILD* ALGORITHM WITH MEALS BEDTIME SC Last administered on 01/22/19 17:58; Admin Dose 1 UNIT; Start 01/17/19 at 18:17 Latanoprost (Xalatan) 1 drop HS BOTH EYES Last administered on 01/22/19 21:19; Admin Dose 1 DROP; Start 01/17/19 at 18:17 Levothyroxine Sodium (Synthroid) 125 mcg BEFORE BREAKFAST PO Last administered on 01/23/19 09:08; Admin Dose 125 MCG; Start 01/17/19 at 18:17 Metoprolol Tartrate (Lopressor) 50 mg BID PO Last administered on 01/23/19 09:09; Admin Dose 50 MG; Start 01/17/19 at 18:17 Nitroglycerin (Nitroglycerin (Sl Tab) 0.4 Mg) 0.4 tab Q5M PRN SL CHEST PAIN; Start 01/17/19 at 18:17 Nystatin (Nystatin Powder) 1 applic BID TOP Last administered on 01/23/19 09:11 ; Admin Dose 1 APPLIC; Start 01/17/19 at 18:17 Pantoprazole (Protonix Tab) 40 mg DAILY@06 PO Last administered on 01/22/19 05:02; Admin Dose 40 MG; Start 01/17/19 at 18:17 IV Flush (NS 3 ml) 3 ml PER PROTOCOL IV ; Start 01/17/19 at 18:17 Terazosin HCl (Hytrin) 10 mg HS PO Last administered on 01/21/19 20:33; Admin Dose 10 MG; Start 01/17/19 at 18:17 Miscellaneous Information 1 ea NOTE XX ; Start 01/17/19 at 18:17 Glucose (Glutose) 15 gm Q15M PRN PO DECREASED GLUCOSE; Start 01/17/19 at 18:17 Glucose (Glutose) 22.5 gm Q15M PRN PO DECREASED GLUCOSE; Start 01/17/19 at 18:17 Dextrose (D50w Syringe) 25 ml Q15M PRN IV DECREASED GLUCOSE; Start 01/17/19 at 18:17 Dextrose (D50w Syringe) 50 ml Q15M PRN IV DECREASED GLUCOSE; Start 01/17/19 at 18:17 Glucagon (Glucagen) 1 mg Q15M PRN IM DECREASED GLUCOSE; Start 01/17/19 at 18:17 Glucose (Glutose) 15 gm Q15M PRN BUCCAL DECREASED GLUCOSE; Start 01/17/19 at 18:17 Multivitamins Therapeutic (Theragran) 1 tab DAILY PO Last administered on 01/23/19 09:08; Admin Dose 1 TAB; Start 01/17/19 at 18:17 Zinc Sulfate (Zinc Sulfate) 220 mg DAILY PO Last administered on 01/23/19 09:08; Admin Dose 220 MG; Start 01/17/19 at 18:17 Ascorbic Acid (Vitamin C) 250 mg DAILY PO Last administered on 01/23/19 09:08; Admin Dose 250 MG; Start 01/17/19 at 18:17 Albuterol/ Ipratropium (Duoneb) 3 ml Q6H RESP THERAPY HHN Last administered on 01/23/19 07:38; Admin Dose 3 ML; Start 01/17/19 at 18:17 Multi-Ingredient Ointment (Aquaphor Oint 52.5 Gm) 1 applic BID TOP Last administered on 01/22/19 21:21; Admin Dose 1 APPLIC; Start 01/17/19 at 18:17 Aspirin (Aspirin) 81 mg DAILY PO Last administered on 01/23/19 09:08; Admin Dose 81 MG; Start 01/17/19 at 18:17 Ferrous Sulfate (Ferrous Sulfate (Ec)) 325 mg WITH MEALS PO Last administered on 01/23/19 09:08; Admin Dose 325 MG; Start 01/17/19 at 18:17 Bisacodyl (Dulcolax Supp) 10 mg DAILY PRN [place] CONSTIPATION; Start 01/17/19 at 18:17 Caspofungin 50 mg/ Sodium Chloride 250 ml @ 250 mls/hr Q24H IVPB Last a dministered on 01/22/19at 17:51; Admin Dose 250 MLS/HR; Start 01/17/19 at 18:17 Zinc Acetate/ Diphenhydramine (Benadryl 2% Cr) 1 applic Q6H PRN TOP ITCHING; Start 01/19/19 at 16:37 Nystatin/ Triamcinolone Acetonide (Mycolog Cr) 1 applic BID TOP Last administered on 01/23/19 09:11; Admin Dose 1 APPLIC; Start 01/19/19 at 22:41 Dextrose 1,000 ml @ 40 mls/hr Q24H IV Last administered on 01/23/19at 09:10; Admin Dose 40 MLS/HR; Start 01/20/19 at 06:30 Epoetin Dae-epbx (RETACRIT(non-esrd)) 20,000 unit Mo@1700 SC Last administered on 01/20/19at 18:13; Admin Dose 20,000 UNIT; Start 01/20/19 at 17:00 Furosemide (Lasix) 20 mg DAILY IV Last administered on 01/23/19 09:07; Admin Dose 20 MG; Start 01/21/19 at 09:00 IV Flush (NS 10 ml) 10 ml PRN PRN IV IV PROTOCOL; Start 01/20/19 at 14:30 Cyanocobalamin (Vitamin B12 Inj) 1,000 mcg Q7D IM ; Start 02/03/19 at 09:00 Cyanocobalamin (Vitamin B12 Inj) 1,000 mcg DAILY IM Last administered on 01/23/19 09:09; Admin Dose 1,000 MCG; Start 01/21/19 at 09:00; Stop 01/27/19 at 09:00 MICHELLE FROST MD January 23, 2019 12:08
--- NOTE | 2019-01-23 13:34 | CONS ---
Assessment/Plan Assessment/Plan Hospital Course (Demo Recall) IMPRESSION: 1. Atrial fibrillation, currently rate controlled.-off systemic anticoagulation due to anemia. ON asa only due to anemia 2. Possible congestive heart failure by chest x-ray, which will be diastolic, acute on chronic by most recent echo with an EF of 60%. 3. Tricuspid regurgitation, moderate by most recent echo. 4. Acute on chronic renal failure-mild worsening 5. Possible pneumonia. 6. History of coronary artery disease, status post coronary artery bypass graft surgery. 7. Dyslipidemia. 8. Rheumatoid arthritis. 9. Groin cellulitis. 10. Anemia-worsening again today requiring transfusions PRBC's.Now post-op s/p endoscopy ? findings 11. Diabetes mellitus. 12. Sepsis Recc: -Now on tele -serial ecg's -Continue BB as tolerated -give dose of IVP digoxin -Baby asa as tolerated only -Continue lasix -Continue statin -Continue abx's/antifungals and f/u cx data Consultation Date/Type/Reason Admit Date/Time Jan 17, 2019 at 15:58 Initial Consult Date 01/18/19 Type of Consult Cardiology Reason for Consultation CHF Requesting Provider: IVAN AKHTAR MD Date/Time of Note DATE: 01/23/19 TIME: 13:31 Exam/Review of Systems Vital Signs Vitals Vital Signs Date Temp Pulse Resp B/P (MAP) Pulse Ox O2 O2 Flow FiO2 Time Delivery Rate 01/23/19 97.0 72 18 109/52 100 Nasal 11:44 (71) Cannula 01/23/19 2.0 07:38 Intake and Output 01/22/19 01/22/19 01/23/19 1515:00 23:00 07:00 OutputOutput Total 250 ml 400 ml BalanceBalance -250 ml -400 ml Exam Exam Review of Systems: CONSTITUTIONAL: No fevers, chills. PULMONARY: No sob CARDIOVASCULAR: No chest pain/palpitations GASTROINTESTINAL: No nausea/vomiting. GENITOURINARY: No hematuria/dysuria. MUSCULOSKELETAL: No myagias/arthalgias. PSYCHIATRIC: The patient denies depression. NEUROLOGIC: No weakness Constitutional: alert Psych: no complaints Head: normocephalic ENMT: mucosa pink and moist Neck: supple, jvd (9 cm water) Respiratory: diminished breath sounds Cardiovascular: regular rate and rhythm Gastrointestinal: soft, non-tender Musculoskeletal: muscle tone (normal) Extremities: edema (none) Neurological: other (No focal deficits) Labs Result Diagram: 01/23/19 0610 01/23/19 0613 Results 24hrs Laboratory Tests Test 01/22/19 14:19 01/22/19 16:00 01/22/19 17:48 01/22/19 19:52 Ammonia < 9 L Urine Color YELLOW Urine Clarity SLIGHTLY CLOUDY A Urine pH 5.0 Urine Specific 1.016 [place] Urine Ketones NEGATIVE Urine Nitrite NEGATIVE Urine Bilirubin NEGATIVE Urine NEGATIVE Urobilinogen Urine Leukocyte NEGATIVE Esterase Urine 12 H Microscopic RBC Urine 5 Microscopic WBC Urine Hemoglobin 2+ H Urine Glucose NEGATIVE Urine Total NEGATIVE Protein Urine Opiates Positive Screen Urine Negative Barbiturates Urine Negative Amphetamines Screen Urine Negative Benzodiazepines Screen Urine Cocaine Negative Screen Urine Negative Cannabinoids Bedside Glucose 161 144 Test 01/23/19 06:10 01/23/19 06:13 01/23/19 08:24 01/23/19 12:02 White Blood 21.2 H Count Red Blood Count 2.53 L Hemoglobin 7.5 L Hematocrit 23.4 L Mean Corpuscular 92.5 Volume Mean Corpuscular 29.6 Hemoglobin Mean Corpuscular 32.1 Hemoglobin June nt Red Cell 17.6 H Distribution Width Platelet Count 275 Mean Platelet 10.2 Volume Immature 0.800 H Granulocytes % Neutrophils % 89.1 H Lymphocytes % 5.0 L Monocytes % 4.8 Eosinophils % 0.1 Basophils % 0.2 Nucleated Red 0.0 Blood Cells % Immature 0.170 H Granulocytes # Neutrophils # 18.9 H Lymphocytes # 1.1 Monocytes # 1.0 H Eosinophils # 0.0 Basophils # 0.0 Nucleated Red 0.0 Blood Cells # Sodium Level 138 Potassium Level 4.1 Chloride Level 104 Carbon Dioxide 26 Level Anion Gap 8 Blood Urea 40 H Nitrogen Creatinine 1.22 Est Glomerular Filtrat Rate mL/min Glucose Level 113 # Calcium Level 8.6 Lab Scanned BLOOD TRANSFUSIO Report N Bedside Glucose 141 Medications Medications Current Medications Docusate Sodium (Colace) 100 mg BID PO Last administered on 01/23/19at 09:08; Admin Dose 100 MG; Start 01/17/19 at 18:17 Lactulose (Enulose) 20 gm DAILY PRN PO CONSTIPATION; Start 01/17/19 at 18:17 Acetaminophen (Tylenol Tab) 650 mg Q4H PRN PO PAIN Last administered on 01/23/19 09:08; Admin Dose 650 MG; Start 01/17/19 at 18:17 Miscellaneous Information (Pending [facility] Order For Wound Care) This patient ramirez... PRN PRN XX WOUND CARE; Start 01/17/19 at 18:17 Diagnostic Test (Pha) (Accu-Chek) 1 ea AC MEALS AND BEDTIME XX Last administered on 01/23/19 11:20; Admin Dose 1 EA; Start 01/17/19 at 18:17 Diagnostic Test (Pha) (Accu-Chek) 1 ea 02 XX Last administered on 01/22/19 0 2:00; Admin Dose 1 EA; Start 01/17/19 at 18:17 Albuterol/ Ipratropium (Duoneb) 3 ml Q2H RESP THERAPY PRN HHN SHORTNESS OF BREATH; Start 01/17/19 at 18:17 Atorvastatin Calcium (Lipitor) 40 mg QHS PO Last administered on 01/21/19 20:23; Admin Dose 40 MG; Start 01/17/19 at 18:17 Bisacodyl (Dulcolax) 10 mg BID PRN PO CONSTIPATION; Start 01/17/19 at 18:17 Folic Acid (Folic Acid) 1 mg DAILY PO Last administered on 01/23/19 09:08; Admin Dose 1 MG; Start 01/17/19 at 18:17 Insulin Aspart (Novolog Insulin Pen) NOVOLOG *MILD* ALGORITHM WITH MEALS BEDTIME SC Last administered on 01/22/19 17:58; Admin Dose 1 UNIT; Start 01/17/19 at 18:17 Latanoprost (Xalatan) 1 drop HS BOTH EYES Last administered on 01/22/19 21:19; Admin Dose 1 DROP; Start 01/17/19 at 18:17 Levothyroxine Sodium (Synthroid) 125 mcg BEFORE BREAKFAST PO Last administered on 01/23/19 09:08; Admin Dose 125 MCG; Start 01/17/19 at 18:17 Metoprolol Tartrate (Lopressor) 50 mg BID PO Last administered on 01/23/19 09:09; Admin Dose 50 MG; Start 01/17/19 at 18:17 Nitroglycerin (Nitroglycerin (Sl Tab) 0.4 Mg) 0.4 tab Q5M PRN SL CHEST PAIN; Start 01/17/19 at 18:17 Nystatin (Nystatin Powder) 1 applic BID TOP Last administered on 01/23/19 09:11; Admin Dose 1 APPLIC; Start 01/17/19 at 18:17 Pantoprazole (Protonix Tab) 40 mg DAILY@06 PO Last administered on 01/22/19 05:02; Admin Dose 40 MG; Start 01/17/19 at 18:17 IV Flush (NS 3 ml) 3 ml PER PROTOCOL IV ; Start 01/17/19 at 18:17 Terazosin HCl (Hytrin) 10 mg HS PO Last administered on 01/21/19at 20:33; Admin Dose 10 MG; Start 01/17/19 at 18:17 Miscellaneous Information 1 ea NOTE XX ; Start 01/17/19 at 18:17 Glucose (Glutose) 15 gm Q15M PRN PO DECREASED GLUCOSE; Start 01/17/19 at 18:17 Glucose (Glutose) 22.5 gm Q15M PRN PO DECREASED GLUCOSE; Start 01/17/19 at 18:17 Dextrose (D50w Syringe) 25 ml Q15M PRN IV DECREASED GLUCOSE; Start 01/17/19 at 18:17 Dextrose (D50w Syringe) 50 ml Q15M PRN IV DECREASED GLUCOSE; Start 01/17/19 at 18:17 Glucagon (Glucagen) 1 mg Q15M PRN IM DECREASED GLUCOSE; Start 01/17/19 at 18:17 Glucose (Glutose) 15 gm Q15M PRN BUCCAL DECREASED GLUCOSE; Start 01/17/19 at 18:17 Multivitamins Therapeutic (Theragran) 1 tab DAILY PO Last administered on 01/23/19 09:08; Admin Dose 1 TAB; Start 01/17/19 at 18:17 Zinc Sulfate (Zinc Sulfate) 220 mg DAILY PO Last administered on 01/23/19 09:08; Admin Dose 220 MG; Start 01/17/19 at 18:17 Ascorbic Acid (Vitamin C) 250 mg DAILY PO Last administered on 01/23/19 09:08; Admin Dose 250 MG; Start 01/17/19 at 18:17 Albuterol/ Ipratropium (Duoneb) 3 ml Q6H RESP THERAPY HHN Last administered on 01/23/19at 13:22; Admin Dose 3 ML; Start 01/17/19 at 18:17 Multi-Ingredient Ointment (Aquaphor Oint 52.5 Gm) 1 applic BID TOP Last administered on 01/22/19 21:21; Admin Dose 1 APPLIC; Start 01/17/19 at 18:17 Aspirin (Aspirin) 81 mg DAILY PO Last administered on 01/23/19 09:08; Admin Dose 81 MG; Start 01/17/19 at 18:17 Ferrous Sulfate (Ferrous Sulfate (Ec)) 325 mg WITH MEALS PO Last administered on 01/23/19 12:37; Admin Dose 325 MG; Start 01/17/19 at 18:17 Bisacodyl (Dulcolax Supp) 10 mg DAILY PRN [place] CONSTIPATION; Start 01/17/19 at 18:17 Caspofungin 50 mg/ Sodium Chloride 250 ml @ 250 mls/hr Q24H IVPB Last administered on 01/22/19 17:51; Admin Dose 250 MLS/HR; Start 01/17/19 at 18:17 Zinc Acetate/ Diphenhydramine (Benadryl 2% Cr) 1 applic Q6H PRN TOP ITCHING; Start 01/19/19 at 16:37 Nystatin/ Triamcinolone Acetonide (Mycolog Cr) 1 applic BID TOP Last administered on 01/23/19 09:11; Admin Dose 1 APPLIC; Start 01/19/19 at 22:41 Dextrose 1,000 ml @ 40 mls/hr Q24H IV Last administered on 01/23/19 09:10; Admin Dose 40 MLS/HR; Start 01/20/19 at 06:30 Epoetin Dae-epbx (RETACRIT(non-esrd)) 20,000 unit Mo@1700 SC Last administered on 01/20/19 18:13; Admin Dose 20,000 UNIT; Start 01/20/19 at 17:00 Furosemide (Lasix) 20 mg DAILY IV Last administered on 01/23/19 09:07; Admin Dose 20 MG; Start 01/21/19 at 09:00 IV Flush (NS 10 ml) 10 ml PRN PRN IV IV PROTOCOL; Start 01/20/19 at 14:30 Cyanocobalamin (Vitamin B12 Inj) 1,000 mcg Q7D IM ; Start 02/03/19 at 09:00 Cyanocobalamin (Vitamin B12 Inj) 1,000 mcg DAILY IM Last administered on 01/23/19at 09:09; Admin Dose 1,000 MCG; Start 01/21/19 at 09:00; Stop 01/27/19 at 09:00 MARJORIE JAIN January 23, 2019 13:33
[2019-01-23] MEDS ORDERED: DIGOXIN 500 MCG INJ IV ONE (14:00)
--- NOTE | 2019-01-23 14:30 | CONS ---
Assessment/Plan Assessment/Plan Hospital Course (Demo Recall) Lethargic, looks comfortable, no fevers Microbiology blood cultures repeated on January 17 grew coag negative staph suspicious of onset urine culture has been negative Antimicrobials: s/p Vancomycin, Invanz Physical examination: Obese well-developed chronically ill-appearing -[place] man who is awake in no distress. Head atraumatic normocephalic sclera nonicteric. Neck is supple chest rise symmetrical breath sounds diminished bases. Heart: S1-S2. Abdomen obese soft bowel sounds present extremities without cyanosis, bilateral edema Assessment: 1. Systemic inflammatory response syndrome with ongoing leukocytosis 2. Status post pneumonia 3. Coronary artery disease/history of CABG 4. Advanced rheumatoid arthritis 5. Chronic atrial fibrillation 6. Diabetes 7. BPH 8. Coag negative staph bacteremia consistent with contaminant 9. Acute on chronic anemia===> s/p EGD/colonoscopy 01/09/19 10. Status post right epididymitis 11. Pancreatic lesion per CT, unlikely neoplasm per oncology notes Plan: Clinically unchanged, no fevers, GI/card rec-s noted, pt completed 2+ weeks abx, will observe and reculture prn Consultation Date/Type/Reason Admit Date/Time Jan 17, 2019 at 15:58 Initial Consult Date 01/18/19 Type of Consult id Requesting Provider: IVAN AKHTAR MD Date/Time of Note DATE: 01/23/19 TIME: 14:27 Exam/Review of Systems Exam Vitals Vital Signs Date Temp Pulse Resp B/P (MAP) Pulse Ox O2 O2 Flow FiO2 Time Delivery Rate 01/23/19 2.0 13:28 01/23/19 100 20 98 Nasal 13:28 Cannula 01/23/19 97.0 109/52 11:44 (71) Intake and Output 01/22/19 01/22/19 01/23/19 1515:00 23:00 07:00 OutputOutput Total 250 ml 400 ml BalanceBalance -250 ml -400 ml Results Result Diagram: 01/23/19 0610 01/23/19 0613 Results 24hrs Laboratory Tests Test 01/22/19 16:00 01/22/19 17:48 01/22/19 19:52 01/23/19 06:10 Urine Color YELLOW Urine Clarity SLIGHTLY CLOUDY A Urine pH 5.0 Urine Specific 1.016 [place] Urine Ketones NEGATIVE Urine Nitrite NEGATIVE Urine Bilirubin NEGATIVE Urine NEGATIVE Urobilinogen Urine Leukocyte NEGATIVE Esterase Urine 12 H Microscopic RBC Urine 5 Microscopic WBC Urine Hemoglobin 2+ H Urine Glucose NEGATIVE Urine Total NEGATIVE Protein Urine Opiates Positive Screen Urine Negative Barbiturates Urine Negative Amphetamines Screen Urine Negative Benzodiazepines Screen Urine Cocaine Negative Screen Urine Negative Cannabinoids Bedside Glucose 161 144 White Blood 21.2 H Count Red Blood Count 2.53 L Hemoglobin 7.5 L Hematocrit 23.4 L Mean Corpuscular 92.5 Volume Mean Corpuscular 29.6 Hemoglobin Mean Corpuscular 32.1 Hemoglobin Juen nt Red Cell 17.6 H Distribution Width Platelet Count 275 Mean Platelet 10.2 Volume Immature 0.800 H Granulocytes % Neutrophils % 89.1 H Lymphocytes % 5.0 L Monocytes % 4.8 Eosinophils % 0.1 Basophils % 0.2 Nucleated Red 0.0 Blood Cells % Immature 0.170 H Granulocytes # Neutrophils # 18.9 H Lymphocytes # 1.1 Monocytes # 1.0 H Eosinophils # 0.0 Basophils # 0.0 Nucleated Red 0.0 Blood Cells # Test 01/23/19 06:13 01/23/19 08:24 01/23/19 12:02 Sodium Level 138 Potassium Level 4.1 Chloride Level 104 Carbon Dioxide 26 Level Anion Gap 8 Blood Urea 40 H Nitrogen Creatinine 1.22 Est Glomerular Filtrat Rate mL/min Glucose Level 113 # Calcium Level 8.6 Lab Scanned BLOOD TRANSFUSIO Report N Bedside Glucose 141 Medications Medication Current Medications Docusate Sodium (Colace) 100 mg BID PO Last administered on 01/23/19at 09:08; Admin Dose 100 MG; Start 01/17/19 at 18:17 Lactulose (Enulose) 20 gm DAILY PRN PO CONSTIPATION; Start 01/17/19 at 18:17 Acetaminophen (Tylenol Tab) 650 mg Q4H PRN PO PAIN Last administered on 01/23/19at 09:08; Admin Dose 650 MG; Start 01/17/19 at 18:17 Miscellaneous Information (Pending [facility] Order For Wound Care) This patient ramirez... PRN PRN XX WOUND CARE; Start 01/17/19 at 18:17 Diagnostic Test (Pha) (Accu-Chek) 1 ea AC MEALS AND BEDTIME XX Last administered on 01/23/19at 11:20; Admin Dose 1 EA; Start 01/17/19 at 18:17 Diagnostic Test (Pha) (Accu-Chek) 1 ea 02 XX Last administered on 01/22/19 02:00; Admin Dose 1 EA; Start 01/17/19 at 18:17 Albuterol/ Ipratropium (Duoneb) 3 ml Q2H RESP THERAPY PRN HHN SHORTNESS OF BREATH; Start 01/17/19 at 18:17 Atorvastatin Calcium (Lipitor) 40 mg QHS PO Last administered on 01/21/19 20:23; Admin Dose 40 MG; Start 01/17/19 at 18:17 Bisacodyl (Dulcolax) 10 mg BID PRN PO CONSTIPATION; Start 01/17/19 at 18:17 Folic Acid (Folic Acid) 1 mg DAILY PO Last administered on 01/23/19 09:08; Admin Dose 1 MG; Start 01/17/19 at 18:17 Insulin Aspart (Novolog Insulin Pen) NOVOLOG *MILD* ALGORITHM WITH MEALS B EDTIME SC Last administered on 01/22/19 17:58; Admin Dose 1 UNIT; Start 01/17/19 at 18:17 Latanoprost (Xalatan) 1 drop HS BOTH EYES Last administered on 01/22/19 21:19; Admin Dose 1 DROP; Start 01/17/19 at 18:17 Levothyroxine Sodium (Synthroid) 125 mcg BEFORE BREAKFAST PO Last administered on 01/23/19 09:08; Admin Dose 125 MCG; Start 01/17/19 at 18:17 Metoprolol Tartrate (Lopressor) 50 mg BID PO Last administered on 01/23/19 09:09; Admin Dose 50 MG; Start 01/17/19 at 18:17 Nitroglycerin (Nitroglycerin (Sl Tab) 0.4 Mg) 0.4 tab Q5M PRN SL CHEST PAIN; Start 01/17/19 at 18:17 Nystatin (Nystatin Powder) 1 applic BID TOP Last administered on 01/23/19 09:11; Admin Dose 1 APPLIC; Start 01/17/19 at 18:17 Pantoprazole (Protonix Tab) 40 mg DAILY@06 PO Last administered on 01/22/19 05:02; Admin Dose 40 MG; Start 01/17/19 at 18:17 IV Flush (NS 3 ml) 3 ml PER PROTOCOL IV ; Start 01/17/19 at 18:17 Terazosin HCl (Hytrin) 10 mg HS PO Last administered on 01/21/19 20:33; Admin Dose 10 MG; Start 01/17/19 at 18:17 Miscellaneous Information 1 ea NOTE XX ; Start 01/17/19 at 18:17 Glucose (Glutose) 15 gm Q15M PRN PO DECREASED GLUCOSE; Start 01/17/19 at 18:17 Glucose (Glutose) 22.5 gm Q15M PRN PO DECREASED GLUCOSE; Start 01/17/19 at 18:17 Dextrose (D50w Syringe) 25 ml Q15M PRN IV DECREASED GLUCOSE; Start 01/17/19 at 18:17 Dextrose (D50w Syringe) 50 ml Q15M PRN IV DECREASED GLUCOSE; Start 01/17/19 at 18:17 Glucagon (Glucagen) 1 mg Q15M PRN IM DECREASED GLUCOSE; Start 01/17/19 at 18:17 Glucose (Glutose) 15 gm Q15M PRN BUCCAL DECREASED GLUCOSE; Start 01/17/19 at 18:17 Multivitamins Therapeutic (Theragran) 1 tab DAILY PO Last administered on 01/23/19 09:08; Admin Dose 1 TAB; Start 01/17/19 at 18:17 Zinc Sulfate (Zinc Sulfate) 220 mg DAILY PO Last administered on 01/23/19 09:08; Admin Dose 220 MG; Start 01/17/19 at 18:17 Ascorbic Acid (Vitamin C) 250 mg DAILY PO Last administered on 01/23/19 09:08; Admin Dose 250 MG; Start 01/17/19 at 18:17 Albuterol/ Ipratropium (Duoneb) 3 ml Q6H RESP THERAPY HHN Last administered on 01/23/19 13:22; Admin Dose 3 ML; Start 01/17/19 at 18:17 Multi-Ingredient Ointment (Aquaphor Oint 52.5 Gm) 1 applic BID TOP Last administered on 01/22/19 21:21; Admin Dose 1 APPLIC; Start 01/17/19 at 18:17 Aspirin (Aspirin) 81 mg DAILY PO Last administered on 01/23/19 09:08; Admin Dose 81 MG; Start 01/17/19 at 18:17 Ferrous Sulfate (Ferrous Sulfate (Ec)) 325 mg WITH MEALS PO Last administered on 5/2/19at 12:37; Admin Dose 325 MG; Start 01/17/19 at 18:17 Bisacodyl (Dulcolax Supp) 10 mg DAILY PRN [place] CONSTIPATION; Start 01/17/19 at 18:17 Caspofungin 50 mg/ Sodium Chloride 250 ml @ 250 mls/hr Q24H IVPB Last administered on 01/22/19at 17:51; Admin Dose 250 MLS/HR; Start 01/17/19 at 18:17 Zinc Acetate/ Diphenhydramine (Benadryl 2% Cr) 1 applic Q6H PRN TOP ITCHING; Start 01/19/19 at 16:37 Nystatin/ Triamcinolone Acetonide (Mycolog Cr) 1 applic BID TOP Last administered on 01/23/19 09:11; Admin Dose 1 APPLIC; Start 01/19/19 at 22:41 Dextrose 1,000 ml @ 40 mls/hr Q24H IV Last administered on 01/23/19 09:10; Admin Dose 40 MLS/HR; Start 01/20/19 at 06:30 Epoetin Dae-epbx (RETACRIT(non-esrd)) 20,000 unit Mo@1700 SC Last administered on 01/20/19 18:13; Admin Dose 20,000 UNIT; Start 01/20/19 at 17:00 Furosemide (Lasix) 20 mg DAILY IV Last administered on 01/23/19at 09:07; Admin Dose 20 MG; Start 01/21/19 at 09:00 IV Flush (NS 10 ml) 10 ml PRN PRN IV IV PROTOCOL; Start 01/20/19 at 14:30 Cyanocobalamin (Vitamin B12 Inj) 1,000 mcg Q7D IM ; Start 02/03/19 at 09:00 Cyanocobalamin (Vitamin B12 Inj) 1,000 mcg DAILY IM Last administered on 01/23/19 09:09; Admin Dose 1,000 MCG; Start 01/21/19 at 09:00; Stop 01/27/19 at 09:00 LUCIAN HARKINS NP January 23, 2019 14:30
--- NOTE | 2019-01-23 14:43 | CONS ---
Assessment/Plan Assessment/Plan Hospital Course 88 yo M with multiple comorbidities who initially presented for evaluation of hiccups. He was noted to become acutely altered... for which neurology is consulted. He was noted to develop ams on 01/21 around 7pm and noted on 01/22 to be unresponsive... prompting a code stroke activation. The clinical picture suggests an acute toxic-metabolic encephalopathy.. A focal INSTRUCTIONAL SPECIALIST process is, though, not yet excluded. CTH is without acute ischemia, though notable for chronic infarcts. 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 P: Await MRI brain for further characterization Add MRA H c/o contrast and MRA neck c/ and s/ contrast for the same ASA/Lipitor pending the above [place] as able Limit sedating medications where possible PT/OT/ST as tolerated BP and other medical management per primary Will follow clinically, to recommend neurologic studies, as necessary Consultation Date/Type/Reason Admit Date/Time Jan 17, 2019 at 15:58 Type of Consult Neurology Reason for Consultation ams; eval for stroke Requesting Provider: IVAN AKHTAR MD Date/Time of Note DATE: 01/23/19 TIME: 14:41 24 HR Interval Summary Free Text/Dictation Continues acute care. Awaiting MRI/MRA brain Exam Vital Signs Vitals Vital Signs Date Temp Pulse Resp B/P (MAP) Pulse Ox O2 O2 Flow FiO2 Time Delivery Rate 01/23/19 2.0 13:28 01/23/19 100 20 98 Nasal 13:28 Cannula 01/23/19 97.0 109/52 11:44 (71) Intake and Output 01/22/19 01/22/19 01/23/19 1515:00 23:00 07:00 OutputOutput Total 250 ml 400 ml BalanceBalance -250 ml -400 ml Exam PE: Gen Appearance: No Apparent Distress HEENT: Normocephalic Cardiovascular: Regular rate Abdomen: Soft Extremities: Dry NE: The patient was awake and alert; speech was dysarthric. The pt is able to follow simple axial and appendicular commands. Cranial nerve examination was limited by mental status. Pupils were equal and reactive to light. There was no afferent pupillary defect. Funduscopic examination was limited. Face was grossly symmetric, w/ present corneal and cough reflexes. Tone was normal. Muscle bulk was normal. I did not see fasciculations. The patient was less than gravity in his upper extremities (R<L); his lower extremities were weak symmetrically Coordination and gait testing was limited by mental status. Arm and leg reflexes were within normal limits and symmetric. Gray's sign was absent. Plantar responses were flexor. NEGRA CORONA NP January 23, 2019 14:43
--- NOTE | 2019-01-23 15:58 | RADRPT ---
Vent Rate: 108 bpm RR Interval: 547 msec [place] Interval: [id number] msec QRS Duration: 94 msec QT Interval: 338 msec QTC Interval: 457 msec P-R-T [place]: [id number] - 66 - 86 degrees Atrial fibrillation...? atrial activity Paired ventricular premature complexes...sequence of 2 V complexes Nonspecific T abnormalities, lateral leads...T <-0.10mV, I aVL V5 V6 Electronically Signed By: Bob Shields
[2019-01-23] MEDS: CASPOFUNGIN 50 MG in SOD CHLORIDE 0.9% 250 ML IVPB SCH (17:38)
--- NOTE | 2019-01-23 18:00 | CONS ---
Assessment/Plan Assessment/Plan Hospital Course (Demo Recall) 88 yo male with multiple medical problems including DM, CRF, RA, PVD and chronic afib on Eliquis who presented to [facility] 01/05/19 with severe normocytic anemia and Hg ~7. 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 # Anemia-normocytic -Multifactorial at this time due to iron deficiency, vitamin b12 deficiency and also likely anemia of chronic kidney disease and inflammation. Elevated Methylmalonic acid level noted -Patient still has low iron level even though ferritin is elevated. Ferritin likely elevated due to acute phase reactant. -Instead po iron may need IV iron as patient has severe atrophic gastritis which may be causing absorption issues. -continue vitamin b12 weekly as vitamin b12 was low normal and methylmalonic acid was elevated. Continue folate as well. -No evidence of hemolysis at this time. -Transfuse to keep Hgb > 7. -will continue procrit 58447 units weekly at this time # Pancreatic cystic mass -Ca 19-9 is negative indicating unlikely malignant. -This may be a pseudocyst or a precancerous pancreatic lesion. -It has been growing in size but patient is asymptomatic. EUS with biopsy is recommended and can either be done inpatient or oupatient setting. -The patient at this time is unlikely a candidate for a whipple surgery however. Thank you to Dr. Alatorre for allowing met to participate in the care of this patient. A total of 40 minutes was spent in consultation with this patient and all his questions were answered. Consultation Date/Type/Reason Admit Date/Time Jan 17, 2019 at 15:58 Initial Consult Date 01/18/19 Type of Consult hematology Reason for Consultation anemia Requesting Provider: IVAN AKHTAR MD Date/Time of Note DATE: 01/23/19 TIME: 17:59 24 HR Interval Summary Free Text/Dictation hg did drop slightly to 7.5. no evidence of GIB Exam/Review of Systems Exam Vitals Vital Signs Date Temp Pulse Resp B/P (MAP) Pulse Ox O2 O2 Flow FiO2 Time Delivery Rate 01/23/19 97.8 79 20 115/56 100 Nasal 15:45 (75) Cannula 01/23/19 2.0 13:28 Intake and Output 01/22/19 01/22/19 01/23/19 1515:00 23:00 07:00 OutputOutput Total 250 ml 400 ml BalanceBalance -250 ml -400 ml Constitutional: frail Psych: no complaints Head: normocephalic Eyes: nl conjunctiva ENMT: nl external ears & nose Respiratory: clear to auscultation Cardiovascular: regular rate and rhythm Gastrointestinal: soft Musculoskeletal: nl extremities to inspection Results Result Diagram: 01/23/19 0610 01/23/19 0613 Results 24hrs Laboratory Tests Test 01/22/19 19:52 01/23/19 06:10 01/23/19 06:13 01/23/19 08:24 Bedside Glucose 144 White Blood Count 21.2 H Red Blood Count 2.53 L Hemoglobin 7.5 L Hematocrit 23.4 L Mean Corpuscular 92.5 Volume Mean Corpuscular 29.6 Hemoglobin Mean Corpuscular 32.1 Hemoglobin Concent Red Cell 17.6 H Distribution Width Platelet Count 275 Mean Platelet 10.2 Volume Immature 0.800 H Granulocytes % Neutrophils % 89.1 H Lymphocytes % 5.0 L Monocytes % 4.8 Eosinophils % 0.1 Basophils % 0.2 Nucleated Red Blood 0.0 Cells % Immature 0.170 H Granulocytes # Neutrophils # 18.9 H Lymphocytes # 1.1 Monocytes # 1.0 H Eosinophils # 0.0 Basophils # 0.0 Nucleated Red Blood 0.0 Cells # Sodium Level 138 Potassium Level 4.1 Chloride Level 104 Carbon Dioxide 26 Level Anion Gap 8 Blood Urea Nitrogen 40 H Creatinine 1.22 Est Glomerular Filtrat Rate mL/min Glucose Level 113 # Calcium Level 8.6 Lab Scanned Report BLOOD TRANSFUSION Test 01/23/19 12:02 01/23/19 17:33 Bedside Glucose 141 177 Medications Medication Current Medications Docusate Sodium (Colace) 100 mg BID PO Last administered on 01/23/19at 09:08; Admin Dose 100 MG; Start 01/17/19 at 18:17 Lactulose (Enulose) 20 gm DAILY PRN PO CONSTIPATION; Start 01/17/19 at 18:17 Acetaminophen (Tylenol Tab) 650 mg Q4H PRN PO PAIN Last administered on 01/23/19at 17:34; Admin Dose 650 MG; Start 01/17/19 at 18:17 Miscellaneous Information ([facility]) This patient ramirez... PRN PRN XX WOUND CARE; Start 01/17/19 at 18:17 Diagnostic Test (Pha) (Accu-Chek) 1 ea AC MEALS AND BEDTIME XX Last administered on 01/23/19 17:35; Admin Dose 1 EA; Start 01/17/19 at 18:17 Diagnostic Test (Pha) (Accu-Chek) 1 ea 02 XX Last administered on 01/22/19 02:00; Admin Dose 1 EA; Start 01/17/19 at 18:17 Albuterol/ Ipratropium (Duoneb) 3 ml Q2H RESP THERAPY PRN HHN SHORTNESS OF BREATH; Start 01/17/19 at 18:17 Atorvastatin Calcium (Lipitor) 40 mg QHS PO Last administered on 01/21/19 20:23; Admin Dose 40 MG; Start 01/17/19 at 18:17 Bisacodyl (Dulcolax) 10 mg BID PRN PO CONSTIPATION; Start 01/17/19 at 18:17 Folic Acid (Folic Acid) 1 mg DAILY PO Last administered on 01/23/19 09:08; Admin Dose 1 MG; Start 01/17/19 at 18:17 Insulin Aspart (Novolog Insulin Pen) NOVOLOG *MILD* ALGORITHM WITH MEALS B EDTIME SC Last administered on 01/22/19 17:58; Admin Dose 1 UNIT; Start 01/17/19 at 18:17 Latanoprost (Xalatan) 1 drop HS BOTH EYES Last administered on 01/22/19 21:19; Admin Dose 1 DROP; Start 01/17/19 at 18:17 Levothyroxine Sodium (Synthroid) 125 mcg BEFORE BREAKFAST PO Last administered on 01/23/19 09:08; Admin Dose 125 MCG; Start 01/17/19 at 18:17 Metoprolol Tartrate (Lopressor) 50 mg BID PO Last administered on 01/23/19 09:09; Admin Dose 50 MG; Start 01/17/19 at 18:17 Nitroglycerin (Nitroglycerin (Sl Tab) 0.4 Mg) 0.4 tab Q5M PRN SL CHEST PAIN; Start 01/17/19 at 18:17 Nystatin (Nystatin Powder) 1 applic BID TOP Last administered on 01/23/19 09:11; Admin Dose 1 APPLIC; Start 01/17/19 at 18:17 Pantoprazole (Protonix Tab) 40 mg DAILY@06 PO Last administered on 01/22/19at 05:02; Admin Dose 40 MG; Start 01/17/19 at 18:17 IV Flush (NS 3 ml) 3 ml PER PROTOCOL IV ; Start 01/17/19 at 18:17 Terazosin HCl (Hytrin) 10 mg HS PO Last administered on 01/21/19at 20:33; Admin Dose 10 MG; Start 01/17/19 at 18:17 Miscellaneous Information 1 ea NOTE XX ; Start 01/17/19 at 18:17 Glucose (Glutose) 15 gm Q15M PRN PO DECREASED GLUCOSE; Start 01/17/19 at 18:17 Glucose (Glutose) 22.5 gm Q15M PRN PO DECREASED GLUCOSE; Start 01/17/19 at 18:17 Dextrose (D50w Syringe) 25 ml Q15M PRN IV DECREASED GLUCOSE; Start 01/17/19 at 18:17 Dextrose (D50w Syringe) 50 ml Q15M PRN IV DECREASED GLUCOSE; Start 01/17/19 at 18:17 Glucagon (Glucagen) 1 mg Q15M PRN IM DECREASED GLUCOSE; Start 01/17/19 at 18:17 Glucose (Glutose) 15 gm Q15M PRN BUCCAL DECREASED GLUCOSE; Start 01/17/19 at 18:17 Multivitamins Therapeutic (Theragran) 1 tab DAILY PO Last administered on 01/23/19at 09:08; Admin Dose 1 TAB; Start 01/17/19 at 18:17 Zinc Sulfate (Zinc Sulfate) 220 mg DAILY PO Last administered on 01/23/19at 09:08; Admin Dose 220 MG; Start 01/17/19 at 18:17 Ascorbic Acid (Vitamin C) 250 mg DAILY PO Last administered on 01/23/19 09:08; Admin Dose 250 MG; Start 01/17/19 at 18:17 Albuterol/ Ipratropium (Duoneb) 3 ml Q6H RESP THERAPY HHN Last administered on 01/23/19at 13:22; Admin Dose 3 ML; Start 01/17/19 at 18:17 Multi-Ingredient Ointment (Aquaphor Oint 52.5 Gm) 1 applic BID TOP Last administered on 01/22/19at 21:21; Admin Dose 1 APPLIC; Start 01/17/19 at 18:17 Aspirin (Aspirin) 81 mg DAILY PO Last administered on 01/23/19 09:08; Admin Dose 81 MG; Start 01/17/19 at 18:17 Ferrous Sulfate (Ferrous Sulfate (Ec)) 325 mg WITH MEALS PO Last administered on 01/23/19 17:34; Admin Dose 325 MG; Start 01/17/19 at 18:17 Bisacodyl (Dulcolax Supp) 10 mg DAILY PRN [place] CONSTIPATION; Start 01/17/19 at 18:17 Caspofungin 50 mg/ Sodium Chloride 250 ml @ 250 mls/hr Q24H IVPB Last administered on 01/23/19 17:38; Admin Dose 250 MLS/HR; Start 01/17/19 at 18:17 Zinc Acetate/ Diphenhydramine (Benadryl 2% Cr) 1 applic Q6H PRN TOP ITCHING; Start 01/19/19 at 16:37 Nystatin/ Triamcinolone Acetonide (Mycolog Cr) 1 applic BID TOP Last administered on 01/23/19 09:11; Admin Dose 1 APPLIC; Start 01/19/19 at 22:41 Dextrose 1,000 ml @ 40 mls/hr Q24H IV Last administered on 01/23/19 09:10; Admin Dose 40 MLS/HR; Start 01/20/19 at 06:30 Epoetin Dae-epbx (RETACRIT(non-esrd)) 20,000 unit Mo@1700 SC Last administered on 01/20/19 18:13; Admin Dose 20,000 UNIT; Start 01/20/19 at 17:00 Furosemide (Lasix) 20 mg DAILY IV Last administered on 01/23/19 09:07; Admin Dose 20 MG; Start 01/21/19 at 09:00 IV Flush (NS 10 ml) 10 ml PRN PRN IV IV PROTOCOL; Start 01/20/19 at 14:30 Cyanocobalamin (Vitamin B12 Inj) 1,000 mcg Q7D IM ; Start 02/03/19 at 09:00 Cyanocobalamin (Vitamin B12 Inj) 1,000 mcg DAILY IM Last administered on 01/23/19 09:09; Admin Dose 1,000 MCG; Start 01/21/19 at 09:00; Stop 01/27/19 at 09:00 OREN MARSH M.D. January 23, 2019 18:00
[2019-01-23] MEDS: LATANOPROST 0.005% 2.5 ML OPH BOTH EYES SCH (21:14)
[2019-01-23] MEDS: ATORVASTATIN 40 MG TAB PO SCH (21:15)
[2019-01-23] MEDS: TERAZOSIN 5 MG CAP PO SCH (21:15)
[2019-01-24] VITALS (12 sets, daily range): BP systolic 101–130; BP diastolic 48–57; PULSE 68–86; RESP 17–20
[2019-01-24] MEDS: AQUAPHOR 52.5 GM OINT TOP SCH ×3 (00:21→21:30)
[2019-01-24] MEDS: ALBUTEROL/IPRATROPIUM (NEB) 3 ML AMP HHN SCH ×4 (01:16→19:58)
[2019-01-24] MEDS: ACCU-CHEK XX SCH ×5 (02:00→21:32)
[2019-01-24] MEDS: PANTOPRAZOLE (EC) 40 MG TAB PO SCH (06:24)
[2019-01-24] MEDS: LEVOTHYROXINE 125 MCG TAB PO SCH (06:24)
[2019-01-24] MEDS: DEXTROSE 5% 1,000 ML IV SCH (06:25)
[2019-01-24] MEDS: INSULIN ASPART [NOVOLOG] 3 ML PEN SC SCH ×4 (07:55→21:00)
[2019-01-24] MEDS: MULTIVITAMINS THERAPEUTIC TAB PO SCH (08:15)
[2019-01-24] MEDS: FERROUS SULFATE (EC) 325 MG TAB PO SCH ×3 (08:15→17:02)
[2019-01-24] MEDS: ZINC SULFATE 220 MG CAP PO SCH (08:15)
[2019-01-24] MEDS: DOCUSATE SODIUM 100 MG CAP PO SCH ×2 (08:16→21:29)
[2019-01-24] MEDS: FOLIC ACID 1 MG TAB PO SCH (08:16)
[2019-01-24] MEDS: METOPROLOL 50 MG TAB PO SCH ×2 (08:16→21:37)
[2019-01-24] MEDS: ASPIRIN 81 MG TAB PO SCH (08:16)
[2019-01-24] MEDS: ASCORBIC ACID 250 MG TAB PO SCH (08:16)
[2019-01-24] MEDS: CYANOCOBALAMIN 1000 MCG INJ IM SCH (08:17)
[2019-01-24] MEDS: FUROSEMIDE 20 MG INJ IV SCH (08:17)
--- NOTE | 2019-01-24 12:07 | CONS ---
Assessment/Plan Assessment/Plan Hospital Course 88 yo M with multiple comorbidities who initially presented for evaluation of hiccups. He was noted to become acutely altered... for which neurology is consulted. He was noted to develop ams on 01/21 around 7pm and noted on 01/22 to be unresponsive... prompting a code stroke activation. The clinical picture suggests an acute toxic-metabolic encephalopathy.. A focal [employer] process is, though, not yet excluded. CTH is without acute ischemia, though notable for chronic infarcts. 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 P: Await MRI brain for further characterization Add MRA H c/o contrast and MRA neck c/ and s/ contrast for the same Cont ASA/Lipitor pending the above [place] as able Limit sedating medications where possible PT/OT/ST as tolerated BP and other medical management per primary Will follow clinically, to recommend neurologic studies, as necessary Consultation Date/Type/Reason Admit Date/Time Jan 17, 2019 at 15:58 Type of Consult Neurology Reason for Consultation ams; eval for stroke Requesting Provider: IVAN AKHTAR MD Date/Time of Note DATE: 01/24/19 TIME: 12:07 24 HR Interval Summary Free Text/Dictation Continues acute care. Pt unable to tolerate MRI. Exam Vital Signs Vitals Vital Signs Date Temp Pulse Resp B/P (MAP) Pulse Ox O2 O2 Flow FiO2 Time Delivery Rate 01/24/19 77 20 97 09:09 01/24/19 Nasal 2.0 08:42 Cannula 01/24/19 98.0 104/53 08:03 (70) Intake and Output 01/23/19 01/23/19 01/24/19 1515:00 23:00 07:00 IntakeIntake Total 950 ml 690 ml OutputOutput Total 650 ml 450 ml BalanceBalance 300 ml 240 ml Exam PE: Gen Appearance: No Apparent Distress HEENT: Normocephalic Cardiovascular: Regular rate Abdomen: Soft Extremities: Dry NE: The patient was awake and alert; speech was dysarthric. The pt is able to follow simple axial and appendicular commands. Cranial nerve examination was limited by mental status. Pupils were equal and reactive to light. There was no afferent pupillary defect. Funduscopic examination was limited. Face was grossly symmetric, w/ present corneal and cough reflexes. Tone was normal. Muscle bulk was normal. I did not see fasciculations. The patient was less than gravity in his upper extremities (R<L); his lower extremities were weak symmetrically Coordination and gait testing was limited by mental status. Arm and leg reflexes were within normal limits and symmetric. Gray's sign was absent. Plantar responses were flexor. NEGRA CORONA NP January 24, 2019 12:07
--- NOTE | 2019-01-24 12:24 | CONS ---
Assessment/Plan Assessment/Plan Hospital Course (Demo Recall) 88 yo male with multiple medical problems including DM, CRF, RA, PVD and chronic afib on Eliquis who presented to [facility] 01/05/19 with severe normocytic anemia and Hg ~7. 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 # Anemia-normocytic -Multifactorial at this time due to iron deficiency, vitamin b12 deficiency and also likely anemia of chronic kidney disease and inflammation. Elevated Methylmalonic acid level noted -Patient still has low iron level even though ferritin is elevated. Ferritin likely elevated due to acute phase reactant. -Instead po iron may need IV iron as patient has severe atrophic gastritis which may be causing absorption issues. -continue vitamin b12 weekly as vitamin b12 was low normal and methylmalonic acid was elevated. Continue folate as well. -No evidence of hemolysis at this time. -Transfuse to keep Hgb > 7. -will continue procrit 37351 units weekly at this time # Pancreatic cystic mass -Ca 19-9 is negative indicating unlikely malignant. -This may be a pseudocyst or a precancerous pancreatic lesion. -It has been growing in size but patient is asymptomatic. EUS with biopsy is recommended and can either be done inpatient or oupatient setting. -The patient at this time is unlikely a candidate for a whipple surgery however. Thank you to Dr. Alatorre for allowing met to participate in the care of this patient. A total of 40 minutes was spent in consultation with this patient and all his questions were answered. Consultation Date/Type/Reason Admit Date/Time Jan 17, 2019 at 15:58 Initial Consult Date 01/18/19 Type of Consult hematology Reason for Consultation anemia Requesting Provider: IVAN AKHTAR MD Date/Time of Note DATE: 01/24/19 TIME: 12:14 24 HR Interval Summary Free Text/Dictation no acute overnight events Exam/Review of Systems Exam Vitals Vital Signs Date Temp Pulse Resp B/P (MAP) Pulse Ox O2 O2 Flow FiO2 Time Delivery Rate 01/24/19 68 12:11 01/24/19 20 97 09:09 01/24/19 Nasal 2.0 08:42 Cannula 01/24/19 98.0 104/53 08:03 (70) Intake and Output 01/23/19 01/23/19 01/24/19 1515:00 23:00 07:00 IntakeIntake Total 950 ml 690 ml OutputOutput Total 650 ml 450 ml BalanceBalance 300 ml 240 ml Constitutional: alert Psych: no complaints, confusion Head: normocephalic Eyes: nl conjunctiva ENMT: nl external ears & nose Respiratory: clear to auscultation Cardiovascular: regular rate and rhythm Gastrointestinal: soft Musculoskeletal: nl extremities to inspection Results Result Diagram: 01/24/19 0603 01/24/19 0603 Results 24hrs Laboratory Tests Test 01/23/19 17:33 01/23/19 21:08 01/24/19 06:03 01/24/19 08:12 Bedside Glucose 177 159 129 White Blood Count 17.6 H Red Blood Count 2.84 L Hemoglobin 8.3 L Hematocrit 26.1 L Mean Corpuscular Volume 91.9 Mean Corpuscular 29.2 Hemoglobin Mean Corpuscular 31.8 L Hemoglobin Concent Red Cell Distribution 17.7 H Width Platelet Count 259 Mean Platelet Volume 10.5 H Immature Granulocytes % 0.700 H Neutrophils % 88.8 H Segmented Neutrophils 79 H % (Manual) Band Neutrophils % 16 H (Manual) Lymphocytes % 5.7 L Lymphocytes % (Manual) 2 L Monocytes % 4.3 Monocytes % (Manual) 3 Eosinophils % 0.3 Basophils % 0.2 Nucleated Red Blood 0.0 Cells % Immature Granulocytes # 0.120 H Neutrophils # 15.6 H Neutrophils # (Manual) 14.4 H Band Neutrophils # 2.8 H Lymphocytes (Manual) 0.3 L Lymphocytes # 1.0 Monocytes # 0.8 Monocytes # (Manual) 0.5 Eosinophils # 0.1 Basophils # 0.0 Nucleated Red Blood 0.0 Cells # Platelet Estimate NORMAL Polychromasia 1+ Hypochromasia 1+ Poikilocytosis 3+ Anisocytosis 3+ Macrocytosis 2+ Spherocytes 1+ Target Cells 2+ Sodium Level 134 L Potassium Level 4.1 Chloride Level 101 Carbon Dioxide Level 25 Anion Gap 8 Blood Urea Nitrogen 36 H Creatinine 1.14 Est Glomerular Filtrat Rate mL/min Glucose Level 244 #H Calcium Level 8.3 L Test 01/24/19 11:42 Bedside Glucose 164 Medications Medication Current Medications Docusate Sodium (Colace) 100 mg BID PO Last administered on 01/24/19at 08:16; Admin Dose 100 MG; Start 01/17/19 at 18:17 Lactulose (Enulose) 20 gm DAILY PRN PO CONSTIPATION; Start 01/17/19 at 18:17 Acetaminophen (Tylenol Tab) 650 mg Q4H PRN PO PAIN Last administered on 01/23/19 22:48; Admin Dose 650 MG; Start 01/17/19 at 18:17 Miscellaneous Information (Pending [facility] Order For Wound Care) This patient ramirez... PRN PRN XX WOUND CARE; Start 01/17/19 at 18:17 Diagnostic Test (Pha) (Accu-Chek) 1 ea AC MEALS AND BEDTIME XX Last adminis tered on 01/24/19 11:43; Admin Dose 1 EA; Start 01/17/19 at 18:17 Diagnostic Test (Pha) (Accu-Chek) 1 ea 02 XX Last administered on 01/22/19 02:00; Admin Dose 1 EA; Start 01/17/19 at 18:17 Albuterol/ Ipratropium (Duoneb) 3 ml Q2H RESP THERAPY PRN HHN SHORTNESS OF BREATH; Start 01/17/19 at 18:17 Atorvastatin Calcium (Lipitor) 40 mg QHS PO Last administered on 01/23/19 21:15; Admin Dose 40 MG; Start 01/17/19 at 18:17 Bisacodyl (Dulcolax) 10 mg BID PRN PO CONSTIPATION; Start 01/17/19 at 18:17 Folic Acid (Folic Acid) 1 mg DAILY PO Last administered on 01/24/19 08:16; Admin Dose 1 MG; Start 01/17/19 at 18:17 Insulin Aspart (Novolog Insulin Pen) NOVOLOG *MILD* ALGORITHM WITH MEALS BEDTIME SC Last administered on 01/24/19 12:04; Admin Dose 1 UNIT; Start 01/17/19 at 18:17 Latanoprost (Xalatan) 1 drop HS BOTH EYES Last administered on 01/23/19 21:14; Admin Dose 1 DROP; Start 01/17/19 at 18:17 Levothyroxine Sodium (Synthroid) 125 mcg BEFORE BREAKFAST PO Last administered on 01/24/19 06:24; Admin Dose 125 MCG; Start 01/17/19 at 18:17 Metoprolol Tartrate (Lopressor) 50 mg BID PO Last administered on 5/3/19at 08:16; Admin Dose 50 MG; Start 01/17/19 at 18:17 Nitroglycerin (Nitroglycerin (Sl Tab) 0.4 Mg) 0.4 tab Q5M PRN SL CHEST PAIN; Start 01/17/19 at 18:17 Nystatin (Nystatin Powder) 1 applic BID TOP Last administered on 01/23/19 21:19; Admin Dose 1 APPLIC; Start 01/17/19 at 18:17 Pantoprazole (Protonix Tab) 40 mg DAILY@06 PO Last administered on 01/24/19 06:24; Admin Dose 40 MG; Start 01/17/19 at 18:17 IV Flush (NS 3 ml) 3 ml PER PROTOCOL IV ; Start 01/17/19 at 18:17 Terazosin HCl (Hytrin) 10 mg HS PO Last administered on 01/23/19at 21:15; Admin Dose 10 MG; Start 01/17/19 at 18:17 Miscellaneous Information 1 ea NOTE XX ; Start 01/17/19 at 18:17 Glucose (Glutose) 15 gm Q15M PRN PO DECREASED GLUCOSE; Start 01/17/19 at 18:17 Glucose (Glutose) 22.5 gm Q15M PRN PO DECREASED GLUCOSE; Start 01/17/19 at 18:17 Dextrose (D50w Syringe) 25 ml Q15M PRN IV DECREASED GLUCOSE; Start 01/17/19 at 18:17 Dextrose (D50w Syringe) 50 ml Q15M PRN IV DECREASED GLUCOSE; Start 01/17/19 at 18:17 Glucagon (Glucagen) 1 mg Q15M PRN IM DECREASED GLUCOSE; Start 01/17/19 at 18:17 Glucose (Glutose) 15 gm Q15M PRN BUCCAL DECREASED GLUCOSE; Start 01/17/19 at 18:17 Multivitamins Therapeutic (Theragran) 1 tab DAILY PO Last administered on 01/24/19at 08:15; Admin Dose 1 TAB; Start 01/17/19 at 18:17 Zinc Sulfate (Zinc Sulfate) 220 mg DAILY PO Last administered on 01/24/19at 08:15; Admin Dose 220 MG; Start 01/17/19 at 18:17 Ascorbic Acid (Vitamin C) 250 mg DAILY PO Last administered on 01/24/19at 08:16; Admin Dose 250 MG; Start 01/17/19 at 18:17 Albuterol/ Ipratropium (Duoneb) 3 ml Q6H RESP THERAPY HHN Last administered on 01/24/19 09:08; Admin Dose 3 ML; Start 01/17/19 at 18:17 Multi-Ingredient Ointment (Aquaphor Oint 52.5 Gm) 1 applic BID TOP Last administered on 01/24/19 00:21; Admin Dose 1 APPLIC; Start 01/17/19 at 18:17 Aspirin (Aspirin) 81 mg DAILY PO Last administered on 01/24/19 08:16; Admin Dose 81 MG; Start 01/17/19 at 18:17 Ferrous Sulfate (Ferrous Sulfate (Ec)) 325 mg WITH MEALS PO Last administered on 01/24/19 11:44; Admin Dose 325 MG; Start 01/17/19 at 18:17 Bisacodyl (Dulcolax Supp) 10 mg DAILY PRN [place] CONSTIPATION; Start 01/17/19 at 18:17 Caspofungin 50 mg/ Sodium Chloride 250 ml @ 250 mls/hr Q24H IVPB Last administered on 01/23/19 17:38; Admin Dose 250 MLS/HR; Start 01/17/19 at 18:17 Zinc Acetate/ Diphenhydramine (Benadryl 2% Cr) 1 applic Q6H PRN TOP ITCHING; Start 01/19/19 at 16:37 Nystatin/ Triamcinolone Acetonide (Mycolog Cr) 1 applic BID TOP Last administered on 01/23/19 21:20; Admin Dose 1 APPLIC; Start 01/19/19 at 22:41 Dextrose 1,000 ml @ 40 mls/hr Q24H IV Last administered on 01/24/19 06:25; Admin Dose 40 MLS/HR; Start 01/20/19 at 06:30 Epoetin Dae-epbx (RETACRIT(non-esrd)) 20,000 unit Mo@1700 SC Last administered on 01/20/19 18:13; Admin Dose 20,000 UNIT; Start 01/20/19 at 17:00 Furosemide (Lasix) 20 mg DAILY IV Last administered on 01/24/19 08:17; Admin Dose 20 MG; Start 01/21/19 at 09:00 IV Flush (NS 10 ml) 10 ml PRN PRN IV IV PROTOCOL; Start 01/20/19 at 14:30 Cyanocobalamin (Vitamin B12 Inj) 1,000 mcg Q7D IM ; Start 02/03/19 at 09:00 Cyanocobalamin (Vitamin B12 Inj) 1,000 mcg DAILY IM Last administered on 01/24/19at 08:17; Admin Dose 1,000 MCG; Start 01/21/19 at 09:00; Stop 01/27/19 at 09:00 OREN MARSH M.D. January 24, 2019 12:23
--- NOTE | 2019-01-24 13:24 | CONS ---
Assessment/Plan Assessment/Plan Hospital Course (Demo Recall) No acute changes, awake, looks comfortable, no fevers Microbiology blood cultures repeated on January 17 grew coag negative staph suspicious of onset urine culture has been negative Antimicrobials: s/p Vancomycin, Invanz Physical examination: Obese well-developed chronically ill-appearing - [place] man who is awake in no distress. Head atraumatic normocephalic sclera nonicteric. Neck is supple chest rise symmetrical breath sounds diminished bases. Heart: S1-S2. Abdomen obese soft bowel sounds present extremities without cyanosis, bilateral edema Assessment: 1. Systemic inflammatory response syndrome with ongoing leukocytosis 2. Status post pneumonia 3. Coronary artery disease/history of CABG 4. Advanced rheumatoid arthritis 5. Chronic atrial fibrillation 6. Diabetes 7. BPH 8. Coag negative staph bacteremia consistent with contaminant 9. Acute on chronic anemia===> s/p EGD/colonoscopy 01/09/19 10. Status post right epididymitis 11. Pancreatic lesion per CT, unlikely neoplasm per oncology notes Plan: Stable, no fevers, wbc decreasing, continue observing off abx, reculture prn Consultation Date/Type/Reason Admit Date/Time Jan 17, 2019 at 15:58 Initial Consult Date 01/18/19 Type of Consult id Requesting Provider: IVAN AKHTAR MD Date/Time of Note DATE: 01/24/19 TIME: 13:22 Exam/Review of Systems Exam Vitals Vital Signs Date Temp Pulse Resp B/P (MAP) Pulse Ox O2 O2 Flow FiO2 Time Delivery Rate 01/24/19 68 12:11 01/24/19 97.7 18 113/57 100 Nasal 2.0 12:06 (75) Cannula Intake and Output 01/23/19 01/23/19 01/24/19 1515:00 23:00 07:00 IntakeIntake Total 950 ml 690 ml OutputOutput Total 650 ml 450 ml BalanceBalance 300 ml 240 ml Results Result Diagram: 01/24/19 0603 01/24/19 0603 Results 24hrs Laboratory Tests Test 01/23/19 17:33 01/23/19 21:08 01/24/19 06:03 01/24/19 08:12 Bedside Glucose 177 159 129 White Blood Count 17.6 H Red Blood Count 2.84 L Hemoglobin 8.3 L Hematocrit 26.1 L Mean Corpuscular Volume 91.9 Mean Corpuscular 29.2 Hemoglobin Mean Corpuscular 31.8 L Hemoglobin Concent Red Cell Distribution 17.7 H Width Platelet Count 259 Mean Platelet Volume 10.5 H Immature Granulocytes % 0.700 H Neutrophils % 88.8 H Segmented Neutrophils 79 H % (Manual) Band Neutrophils % 16 H (Manual) Lymphocytes % 5.7 L Lymphocytes % (Manual) 2 L Monocytes % 4.3 Monocytes % (Manual) 3 Eosinophils % 0.3 Basophils % 0.2 Nucleated Red Blood 0.0 Cells % Immature Granulocytes # 0.120 H Neutrophils # 15.6 H Neutrophils # (Manual) 14.4 H Band Neutrophils # 2.8 H Lymphocytes (Manual) 0.3 L Lymphocytes # 1.0 Monocytes # 0.8 Monocytes # (Manual) 0.5 Eosinophils # 0.1 Basophils # 0.0 Nucleated Red Blood 0.0 Cells # Platelet Estimate NORMAL Polychromasia 1+ Hypochromasia 1+ Poikilocytosis 3+ Anisocytosis 3+ Macrocytosis 2+ Spherocytes 1+ Target Cells 2+ Sodium Level 134 L Potassium Level 4.1 Chloride Level 101 Carbon Dioxide Level 25 Anion Gap 8 Blood Urea Nitrogen 36 H Creatinine 1.14 Est Glomerular Filtrat Rate mL/min Glucose Level 244 #H Calcium Level 8.3 L Test 01/24/19 11:42 Bedside Glucose 164 Medications Medication Current Medications Docusate Sodium (Colace) 100 mg BID PO Last administered on 01/24/19at 08:16; Admin Dose 100 MG; Start 01/17/19 at 18:17 Lactulose (Enulose) 20 gm DAILY PRN PO CONSTIPATION; Start 01/17/19 at 18:17 Acetaminophen (Tylenol Tab) 650 mg Q4H PRN PO PAIN Last administered on 01/23/19at 22:48; Admin Dose 650 MG; Start 01/17/19 at 18:17 Miscellaneous Information (Pending Santyl Order For Wound Care) This patient h a... PRN PRN XX WOUND CARE; Start 01/17/19 at 18:17 Diagnostic Test (Pha) (Accu-Chek) 1 ea AC MEALS AND BEDTIME XX Last administered on 01/24/19at 11:43; Admin Dose 1 EA; Start 01/17/19 at 18:17 Diagnostic Test (Pha) (Accu-Chek) 1 ea 02 XX Last administered on 01/22/19 02:00; Admin Dose 1 EA; Start 01/17/19 at 18:17 Albuterol/ Ipratropium (Duoneb) 3 ml Q2H RESP THERAPY PRN HHN SHORTNESS OF BRAN TH; Start 01/17/19 at 18:17 Atorvastatin Calcium (Lipitor) 40 mg QHS PO Last administered on 01/23/19 21:15; Admin Dose 40 MG; Start 01/17/19 at 18:17 Bisacodyl (Dulcolax) 10 mg BID PRN PO CONSTIPATION; Start 01/17/19 at 18:17 Folic Acid (Folic Acid) 1 mg DAILY PO Last administered on 01/24/19 08:16; Admin Dose 1 MG; Start 01/17/19 at 18:17 Insulin Aspart (Novolog Insulin Pen) NOVOLOG *MILD* ALGORITHM WITH MEALS BEDTIME SC Last administered on 01/24/19 12:04; Admin Dose 1 UNIT; Start at 18:17 Latanoprost (Xalatan) 1 drop HS BOTH EYES Last administered on 01/23/19 21:14; Admin Dose 1 DROP; Start 01/17/19 at 18:17 Levothyroxine Sodium (Synthroid) 125 mcg BEFORE BREAKFAST PO Last administered on 01/24/19 06:24; Admin Dose 125 MCG; Start 01/17/19 at 18:17 Metoprolol Tartrate (Lopressor) 50 mg BID PO Last administered on 01/24/19 08:16; Admin Dose 50 MG; Start 01/17/19 at 18:17 Nitroglycerin (Nitroglycerin (Sl Tab) 0.4 Mg) 0.4 tab Q5M PRN SL CHEST PAIN; Start 01/17/19 at 18:17 Nystatin (Nystatin Powder) 1 applic BID TOP Last administered on 01/23/19 21:19; Admin Dose 1 APPLIC; Start 01/17/19 at 18:17 Pantoprazole (Protonix Tab) 40 mg DAILY@06 PO Last administered on 01/24/19 06:24; Admin Dose 40 MG; Start 01/17/19 at 18:17 IV Flush (NS 3 ml) 3 ml PER PROTOCOL IV ; Start 01/17/19 at 18:17 Terazosin HCl (Hytrin) 10 mg HS PO Last administered on 01/23/19 21:15; Admin Dose 10 MG; Start 01/17/19 at 18:17 Miscellaneous Information 1 ea NOTE XX ; Start 01/17/19 at 18:17 Glucose (Glutose) 15 gm Q15M PRN PO DECREASED GLUCOSE; Start 01/17/19 at 18:17 Glucose (Glutose) 22.5 gm Q15M PRN PO DECREASED GLUCOSE; Start 01/17/19 at 18:17 Dextrose (D50w Syringe) 25 ml Q15M PRN IV DECREASED GLUCOSE; Start 01/17/19 at 18:17 Dextrose (D50w Syringe) 50 ml Q15M PRN IV DECREASED GLUCOSE; Start 01/17/19 at 18:17 Glucagon (Glucagen) 1 mg Q15M PRN IM DECREASED GLUCOSE; Start 01/17/19 at 18:17 Glucose (Glutose) 15 gm Q15M PRN BUCCAL DECREASED GLUCOSE; Start 01/17/19 at 18 :17 Multivitamins Therapeutic (Theragran) 1 tab DAILY PO Last administered on 01/24/19 08:15; Admin Dose 1 TAB; Start 01/17/19 at 18:17 Zinc Sulfate (Zinc Sulfate) 220 mg DAILY PO Last administered on 01/24/19 08:15; Admin Dose 220 MG; Start 01/17/19 at 18:17 Ascorbic Acid (Vitamin C) 250 mg DAILY PO Last administered on 01/24/19 08:16; Admin Dose 250 MG; Start 01/17/19 at 18:17 Albuterol/ Ipratropium (Duoneb) 3 ml Q6H RESP THERAPY HHN Last administered on 01/24/19 09:08; Admin Dose 3 ML; Start 01/17/19 at 18:17 Multi-Ingredient Ointment (Aquaphor Oint 52.5 Gm) 1 applic BID TOP Last admi nistered on 01/24/19 00:21; Admin Dose 1 APPLIC; Start 01/17/19 at 18:17 Aspirin (Aspirin) 81 mg DAILY PO Last administered on 01/24/19 08:16; Admin Dose 81 MG; Start 01/17/19 at 18:17 Ferrous Sulfate (Ferrous Sulfate (Ec)) 325 mg WITH MEALS PO Last administered on 01/24/19 11:44; Admin Dose 325 MG; Start 01/17/19 at 18:17 Bisacodyl (Dulcolax Supp) 10 mg DAILY PRN NE CONSTIPATION; Start 01/17/19 at 18:17 Caspofungin 50 mg/ Sodium Chloride 250 ml @ 250 mls/hr Q24H IVPB Last administered on 01/23/19at 17:38; Admin Dose 250 MLS/HR; Start 01/17/19 at 18:17 Zinc Acetate/ Diphenhydramine (Benadryl 2% Cr) 1 applic Q6H PRN TOP ITCHING; Start 01/19/19 at 16:37 Nystatin/ Triamcinolone Acetonide (Mycolog Cr) 1 applic BID TOP Last administered on 01/23/19at 21:20; Admin Dose 1 APPLIC; Start 01/19/19 at 22:41 Dextrose 1,000 ml @ 40 mls/hr Q24H IV Last administered on 01/24/19at 06:25; Admin Dose 40 MLS/HR; Start 01/20/19 at 06:30 Epoetin Dae-epbx (RETACRIT(non-esrd)) 20,000 unit Mo@1700 SC Last administered on 01/20/19at 18:13; Admin Dose 20,000 UNIT; Start 01/20/19 at 17:00 Furosemide (Lasix) 20 mg DAILY IV Last administered on 01/24/19at 08:17; Admin Dose 20 MG; Start 01/21/19 at 09:00 IV Flush (NS 10 ml) 10 ml PRN PRN IV IV PROTOCOL; Start 01/20/19 at 14:30 Cyanocobalamin (Vitamin B12 Inj) 1,000 mcg Q7D IM ; Start 02/03/19 at 09:00 Cyanocobalamin (Vitamin B12 Inj) 1,000 mcg DAILY IM Last administered on 01/24/19 08:17; Admin Dose 1,000 MCG; Start 01/21/19 at 09:00; Stop 01/27/19 at 09:00 LUCIAN HARKINS NP January 24, 2019 13:24
--- NOTE | 2019-01-24 13:29 | PN ---
CARSON CAROA 01/24/19 1329: Date/Time of Note Date/Time of Note DATE: 01/24/19 TIME: 13:26 Assessment/Plan VTE Prophylaxis Risk score (from [facility])>0 risk: 9 SCD applied (from [facility]): Yes Pharmacological prophylaxis: NA/contraindicated Pharm contraindication: anticoag not tolerated Lines/Catheters IV [facility] PICC Line Central line still needed: Yes Urinary Cath still in place: Yes Reason Cath still needed: urinary retention Assessment/Plan Hospital Course 1. Sepsis, WBC elevated , lactic acidosis 2. Severe anemia 3. Chronic renal failure likely secondary to sepsis, improved, normal creatinine 4. Hypertension. 5. Hyperlipidemia. 6. Hypothyroidism. 7. Normocytic normochromic chronic anemia with recent hemoglobin drop. 8. Bilateral groin cellulitis more likely associated with mateus, patches in groin and axilla bilaterally. skin peeling 9. History of rheumatoid arthritis with joint deformities. 10. Diabetes type 2. 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 Peripheral vascular disease. 13. Chronic a.fib 14. right arm edema 15. Neoplasm per CT abdomen. 4.3 cm cystic lesion along the pancreas body, enlarged since 10/10/2012 (previously 2.4 cm). 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 16. Possible allergic skin reaction 17. altered mental status delirium vs stroke, resolved Assessment/Plan - MRI and MRA pending - mental status normal - fu Neuro recs -on ASA, statin -WBC high, on IV antibiotics per ID no source yet though - iv caspofungin - neuro check -cw on Epogen per oncology -oncology consul dr Lorenzo aware:he said Ca 19-9 is negative indicating unlikely malignant. This may be a pseudocyst or a precancerous pancreatic lesion. It has been growing in size but patient is asymptomatic. EUS with biopsy is recommended and can either be done inpatient or outpatient setting. The patient at this time is unlikely a candidate for a Whipple surgery however. -skin care -transfuse hemoglobin less than 7 -IV Lasix -case management SNF Result Diagram: 01/24/19 0603 01/24/19 0603 Results 24hrs Laboratory Tests Test 01/23/19 17:33 01/23/19 21:08 01/24/19 06:03 01/24/19 08:12 Bedside Glucose 177 159 129 White Blood Count 17.6 H Red Blood Count 2.84 L Hemoglobin 8.3 L Hematocrit 26.1 L Mean Corpuscular Volume 91.9 Mean Corpuscular 29.2 Hemoglobin Mean Corpuscular 31.8 L Hemoglobin Concent Red Cell Distribution 17.7 H Width Platelet Count 259 Mean Platelet Volume 10.5 H Immature Granulocytes % 0.700 H Neutrophils % 88.8 H Segmented Neutrophils 79 H % (Manual) Band Neutrophils % 16 H (Manual) Lymphocytes % 5.7 L Lymphocytes % (Manual) 2 L Monocytes % 4.3 Monocytes % (Manual) 3 Eosinophils % 0.3 Basophils % 0.2 Nucleated Red Blood 0.0 Cells % Immature Granulocytes # 0.120 H Neutrophils # 15.6 H Neutrophils # (Manual) 14.4 H Band Neutrophils # 2.8 H Lymphocytes (Manual) 0.3 L Lymphocytes # 1.0 Monocytes # 0.8 Monocytes # (Manual) 0.5 Eosinophils # 0.1 Basophils # 0.0 Nucleated Red Blood 0.0 Cells # Platelet Estimate NORMAL Polychromasia 1+ Hypochromasia 1+ Poikilocytosis 3+ Anisocytosis 3+ Macrocytosis 2+ Spherocytes 1+ Target Cells 2+ Sodium Level 134 L Potassium Level 4.1 Chloride Level 101 Carbon Dioxide Level 25 Anion Gap 8 Blood Urea Nitrogen 36 H Creatinine 1.14 Est Glomerular Filtrat Rate mL/min Glucose Level 244 #H Calcium Level 8.3 L Test 01/24/19 11:42 Bedside Glucose 164 Subjective 24 Hr Interval Summary ENT: no complaints Respiratory: no complaints Cardiovascular: no complaints Gastrointestinal: no complaints Exam/Review of Systems Exam Vitals Vital Signs Date Temp Pulse Resp B/P (MAP) Pulse Ox O2 O2 Flow FiO2 Time Delivery Rate 01/24/19 68 12:11 01/24/19 97.7 18 113/57 100 Nasal 2.0 12:06 (75) Cannula Intake and Output 01/23/19 01/23/19 01/24/19 1515:00 23:00 07:00 IntakeIntake Total 950 ml 690 ml OutputOutput Total 650 ml 450 ml BalanceBalance 300 ml 240 ml Constitutional: alert, oriented ENMT: nl external ears & nose Neck: supple Respiratory: diminished breath sounds Cardiovascular: regular rate and rhythm Gastrointestinal: soft Skin: other (peeling) Results Result Diagram: 01/24/19 0603 01/24/19 0603 Results 24hrs Laboratory Tests Test 01/23/19 17:33 01/23/19 21:08 01/24/19 06:03 01/24/19 08:12 Bedside Glucose 177 159 129 White Blood Count 17.6 H Red Blood Count 2.84 L Hemoglobin 8.3 L Hematocrit 26.1 L Mean Corpuscular Volume 91.9 Mean Corpuscular 29.2 Hemoglobin Mean Corpuscular 31.8 L Hemoglobin Concent Red Cell Distribution 17.7 H Width Platelet Count 259 Mean Platelet Volume 10.5 H Immature Granulocytes % 0.700 H Neutrophils % 88.8 H Segmented Neutrophils 79 H % (Manual) Band Neutrophils % 16 H (Manual) Lymphocytes % 5.7 L Lymphocytes % (Manual) 2 L Monocytes % 4.3 Monocytes % (Manual) 3 Eosinophils % 0.3 Basophils % 0.2 Nucleated Red Blood 0.0 Cells % Immature Granulocytes # 0.120 H Neutrophils # 15.6 H Neutrophils # (Manual) 14.4 H Band Neutrophils # 2.8 H Lymphocytes (Manual) 0.3 L Lymphocytes # 1.0 Monocytes # 0.8 Monocytes # (Manual) 0.5 Eosinophils # 0.1 Basophils # 0.0 Nucleated Red Blood 0.0 Cells # Platelet Estimate NORMAL Polychromasia 1+ Hypochromasia 1+ Poikilocytosis 3+ Anisocytosis 3+ Macrocytosis 2+ Spherocytes 1+ Target Cells 2+ Sodium Level 134 L Potassium Level 4.1 Chloride Level 101 Carbon Dioxide Level 25 Anion Gap 8 Blood Urea Nitrogen 36 H Creatinine 1.14 Est Glomerular Filtrat Rate mL/min Glucose Level 244 #H Calcium Level 8.3 L Test 01/24/19 11:42 Bedside Glucose 164 Medications Medication Current Medications Docusate Sodium (Colace) 100 mg BID PO Last administered on 01/24/19at 08:16; Admin Dose 100 MG; Start 01/17/19 at 18:17 Lactulose (Enulose) 20 gm DAILY PRN PO CONSTIPATION; Start 01/17/19 at 18:17 Acetaminophen (Tylenol Tab) 650 mg Q4H PRN PO PAIN Last administered on 01/23/19at 22:48; Admin Dose 650 MG; Start 01/17/19 at 18:17 [facility] This patient ramirez... PRN PRN XX WOUND CARE; Start 01/17/19 at 18:17 Diagnostic Test (Pha) (Accu-Chek) 1 ea AC MEALS AND BEDTIME XX Last administered on 01/24/19 11:43; Admin Dose 1 EA; Start 01/17/19 at 18:17 Diagnostic Test (Pha) (Accu-Chek) 1 ea 02 XX Last administered on 01/22/19 02:00; Admin Dose 1 EA; Start 01/17/19 at 18:17 Albuterol/ Ipratropium (Duoneb) 3 ml Q2H RESP THERAPY PRN HHN SHORTNESS OF BREATH; Start 01/17/19 at 18:17 Atorvastatin Calcium (Lipitor) 40 mg QHS PO Last administered on 01/23/19 21:15; Admin Dose 40 MG; Start 01/17/19 at 18:17 Bisacodyl (Dulcolax) 10 mg BID PRN PO CONSTIPATION; Start 01/17/19 at 18:17 Folic Acid (Folic Acid) 1 mg DAILY PO Last administered on 01/24/19 08:16; Admin Dose 1 MG; Start 01/17/19 at 18:17 Insulin Aspart (Novolog Insulin Pen) NOVOLOG *MILD* ALGORITHM WITH MEALS BEDTIME SC Last administered on 01/24/19 12:04; Admin Dose 1 UNIT; Start 01/17/19 at 18:17 Latanoprost (Xalatan) 1 drop HS BOTH EYES Last administered on 01/23/19 21:14; Admin Dose 1 DROP; Start 01/17/19 at 18:17 Levothyroxine Sodium (Synthroid) 125 mcg BEFORE BREAKFAST PO Last administered on 01/24/19 06:24; Admin Dose 125 MCG; Start 01/17/19 at 18:17 Metoprolol Tartrate (Lopressor) 50 mg BID PO Last administered on 01/24/19 08:16; Admin Dose 50 MG; Start 01/17/19 at 18:17 Nitroglycerin (Nitroglycerin (Sl Tab) 0.4 Mg) 0.4 tab Q5M PRN SL CHEST PAIN; Start 01/17/19 at 18:17 Nystatin (Nystatin Powder) 1 applic BID TOP Last administered on 01/23/19 21:19; Admin Dose 1 APPLIC; Start 01/17/19 at 18:17 Pantoprazole (Protonix Tab) 40 mg DAILY@06 PO Last administered on 01/24/19 06:24; Admin Dose 40 MG; Start 01/17/19 at 18:17 IV Flush (NS 3 ml) 3 ml PER PROTOCOL IV ; Start 01/17/19 at 18:17 Terazosin HCl (Hytrin) 10 mg HS PO Last administered on 01/23/19 21:15; Admin Dose 10 MG; Start 01/17/19 at 18:17 Miscellaneous Information 1 ea NOTE XX ; Start 01/17/19 at 18:17 Glucose (Glutose) 15 gm Q15M PRN PO DECREASED GLUCOSE; Start 01/17/19 at 18:17 Glucose (Glutose) 22.5 gm Q15M PRN PO DECREASED GLUCOSE; Start 01/17/19 at 18:17 Dextrose (D50w Syringe) 25 ml Q15M PRN IV DECREASED GLUCOSE; Start 01/17/19 at 18:17 Dextrose (D50w Syringe) 50 ml Q15M PRN IV DECREASED GLUCOSE; Start 01/17/19 at 18:17 Glucagon (Glucagen) 1 mg Q15M PRN IM DECREASED GLUCOSE; Start 01/17/19 at 18:17 Glucose (Glutose) 15 gm Q15M PRN BUCCAL DECREASED GLUCOSE; Start 01/17/19 at 18:17 Multivitamins Therapeutic (Theragran) 1 tab DAILY PO Last administered on 01/24/19 08:15; Admin Dose 1 TAB; Start 01/17/19 at 18:17 Zinc Sulfate (Zinc Sulfate) 220 mg DAILY PO Last administered on 01/24/19 08:15; Admin Dose 220 MG; Start 01/17/19 at 18:17 Ascorbic Acid (Vitamin C) 250 mg DAILY PO Last administered on 01/24/19 08:16; Admin Dose 250 MG; Start 01/17/19 at 18:17 Albuterol/ Ipratropium (Duoneb) 3 ml Q6H RESP THERAPY HHN Last administered on 01/24/19 09:08; Admin Dose 3 ML; Start 01/17/19 at 18:17 Multi-Ingredient Ointment (Aquaphor Oint 52.5 Gm) 1 applic BID TOP Last administered on 01/24/19 00:21; Admin Dose 1 APPLIC; Start 01/17/19 at 18:17 Aspirin (Aspirin) 81 mg DAILY PO Last administered on 01/24/19 08:16; Admin Dose 81 MG; Start 01/17/19 at 18:17 Ferrous Sulfate (Ferrous Sulfate (Ec)) 325 mg WITH MEALS PO Last administered on 01/24/19 11:44; Admin Dose 325 MG; Start 01/17/19 at 18:17 Bisacodyl (Dulcolax Supp) 10 mg DAILY PRN [place] CONSTIPATION; Start 01/17/19 at 18:17 Caspofungin 50 mg/ Sodium Chloride 250 ml @ 250 mls/hr Q24H IVPB Last administered on 01/23/19 17:38; Admin Dose 250 MLS/HR; Start 01/17/19 at 18:17 Zinc Acetate/ Diphenhydramine (Benadryl 2% Cr) 1 applic Q6H PRN TOP ITCHING; Start 01/19/19 at 16:37 Nystatin/ Triamcinolone Acetonide (Mycolog Cr) 1 applic BID TOP Last administered on 01/23/19at 21:20; Admin Dose 1 APPLIC; Start 01/19/19 at 22:41 Dextrose 1,000 ml @ 40 mls/hr Q24H IV Last administered on 01/24/19 06:25; Admin Dose 40 MLS/HR; Start 01/20/19 at 06:30 Epoetin Dae-epbx (RETACRIT(non-esrd)) 20,000 unit Mo@1700 SC Last administered on 01/20/19at 18:13; Admin Dose 20,000 UNIT; Start 01/20/19 at 17:00 Furosemide (Lasix) 20 mg DAILY IV Last administered on 01/24/19at 08:17; Admin Dose 20 MG; Start 01/21/19 at 09:00 IV Flush (NS 10 ml) 10 ml PRN PRN IV IV PROTOCOL; Start 01/20/19 at 14:30 Cyanocobalamin (Vitamin B12 Inj) 1,000 mcg Q7D IM ; Start 02/03/19 at 09:00 Cyanocobalamin (Vitamin B12 Inj) 1,000 mcg DAILY IM Last administered on 01/24/19 08:17; Admin Dose 1,000 MCG; Start 01/21/19 at 09:00; Stop 5/6/19 at 09:00 IVAN AKHTAR MD 01/24/19 1803: Assessment/Plan Assessment/Plan Assessment/Plan seen and examined mental status litle better buT mri Pending MRI could not be done as pt coudl not toletrate it , family ok with it, spoke to daugther ? will check if any advanced practice rn comes here Result Diagram: 01/24/19 0603 01/24/19 0603 COOPER CARO January 24, 2019 13:29 IVAN AKHTAR MD January 24, 2019 18:03
--- NOTE | 2019-01-24 13:48 | CONS ---
Assessment/Plan Assessment/Plan Assessment/Plan (Daily) Assessment/Plan Hospital Course (Demo Recall) 88 yo male presents from [facility] for SOB and febrile Interval hx: Pending morning labs. M 1. Severe anemia likely due to chronic disease, last work up while admitted to [facility] about a week ago was neg for GI bleeding, including EGD/colon which was done -s/p EGD and colonoscopy by Dr Frost 01/09/19 which didn't find an obvious GI etiology to explain anemia. AVM or a small lesion could be missed due to poor prep. Pt likely needs capsule endoscopy -Neg fob, elevate retic, Low iron, tibc, [place] [id number] 2. Cystic lesion along pancreas body - 4.3 cm cystic lesion along the pancreas body, enlarged since 10/10/2012 (previously 2.4 cm). 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 -CEA wnl 3. Severe gastritis 4. Hemorrhoids 5. Hital hernia 6. A fib, -eliquis was stopped 01/06 during previous admission, on ASA 7. COPD 8. HTN 9. Hypothyroidism 10. Bilateral groin cellulitis 11. Rheumatoid arthritis. 12. Diabetes mellitus. 13. Peripheral vascular disease. 14. CHF 15. 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 Sepsis- Leukocytosis up to 29, urine cx was unremarkable CT Abd 01/15/19 IMPRESSION: 1. No intra-abdominal inflammation or lymphadenopathy. 2. 4.3 cm cystic lesion along the pancreas body, enlarged since 10/10/2012 (previously 2.4 cm). 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 If clinically warranted, this could be further evaluated with contrast-enhanced MRI. 3. No obstructive uropathy or urinary stone. 4. Enlarged prostate gland. Correlation with PSA level is recommended. 5. Moderate atherosclerotic arterial calcifications. 6. Diffuse subcutaneous edema. 7. Status post posterior decompression and fusion at L5-S1. A malpositioned pedicle screw and impinges on the left L4-5 neural foramen, unchanged. 8. Grade 2 degenerative L4 anterolisthesis and grade 1 degenerative L5 anterol isthesis. 9. Questionable CVA, encephalopathy resolved Plan Stop miralax for mx bm, hold laxatives for diarrhea Recommend carranza cx Pt will need outpatient EUS to evaluate pancreatic cystic lesion, this can be done as an outpatient at outside facility by me Recommend capsule endoscopy as outpatient GI prophylaxis: protonix QD Continue Iron, consider IV iron since pt iron, tibc still low Pain management Consultation Date/Type/Reason Admit Date/Time Jan 17, 2019 at 15:58 Initial Consult Date 01/18/19 Requesting Provider: IVAN AKHTAR MD Date/Time of Note DATE: 01/24/19 TIME: 13:48 24 HR Interval Summary Constitutional: no complaints Exam/Review of Systems Exam Vitals Vital Signs Date Temp Pulse Resp B/P (MAP) Pulse Ox O2 O2 Flow FiO2 Time Delivery Rate 01/24/19 68 12:11 01/24/19 97.7 18 113/57 100 Nasal 2.0 12:06 (75) Cannula Intake and Output 01/23/19 01/23/19 01/24/19 1515:00 23:00 07:00 IntakeIntake Total 950 ml 690 ml OutputOutput Total 650 ml 450 ml BalanceBalance 300 ml 240 ml Constitutional: alert, oriented, well developed Psych: no complaints, nl mood/affect Head: normocephalic, atraumatic Eyes: nl conjunctiva, EOMI, nl lids, nl sclera, PERRL ENMT: nl external ears & nose, nl lips & teeth, nl nasal mucosa & septum Neck: supple, non-tender Respiratory: clear to auscultation, normal air movement Cardiovascular: regular rate and rhythm, nl pulses Gastrointestinal: soft, nl liver, spleen, non-tender Musculoskeletal: nl extremities to inspection, nl gait and stance Extremities: normal pulses Neurological: EQUIPMENT PLANNER II-XII intact, nl mental status, nl speech, nl strength Skin: nl turgor; No rash or lesions Lymph: nl lymph nodes Results Result Diagram: 01/24/19 0603 01/24/19 0603 Results 24hrs Laboratory Tests Test 01/23/19 17:33 01/23/19 21:08 01/24/19 06:03 01/24/19 08:12 Bedside Glucose 177 159 129 White Blood Count 17.6 H Red Blood Count 2.84 L Hemoglobin 8.3 L Hematocrit 26.1 L Mean Corpuscular Volume 91.9 Mean Corpuscular 29.2 Hemoglobin Mean Corpuscular 31.8 L Hemoglobin Concent Red Cell Distribution 17.7 H Width Platelet Count 259 Mean Platelet Volume 10.5 H Immature Granulocytes % 0.700 H Neutrophils % 88.8 H Segmented Neutrophils 79 H % (Manual) Band Neutrophils % 16 H (Manual) Lymphocytes % 5.7 L Lymphocytes % (Manual) 2 L Monocytes % 4.3 Monocytes % (Manual) 3 Eosinophils % 0.3 Basophils % 0.2 Nucleated Red Blood 0.0 Cells % Immature Granulocytes # 0.120 H Neutrophils # 15.6 H Neutrophils # (Manual) 14.4 H Band Neutrophils # 2.8 H Lymphocytes (Manual) 0.3 L Lymphocytes # 1.0 Monocytes # 0.8 Monocytes # (Manual) 0.5 Eosinophils # 0.1 Basophils # 0.0 Nucleated Red Blood 0.0 Cells # Platelet Estimate NORMAL Polychromasia 1+ Hypochromasia 1+ Poikilocytosis 3+ Anisocytosis 3+ Macrocytosis 2+ Spherocytes 1+ Target Cells 2+ Sodium Level 134 L Potassium Level 4.1 Chloride Level 101 Carbon Dioxide Level 25 Anion Gap 8 Blood Urea Nitrogen 36 H Creatinine 1.14 Est Glomerular Filtrat Rate mL/min Glucose Level 244 #H Calcium Level 8.3 L Test 01/24/19 11:42 Bedside Glucose 164 Medications Medication Current Medications Docusate Sodium (Colace) 100 mg BID PO Last administered on 01/24/19at 08:16; Admin Dose 100 MG; Start 01/17/19 at 18:17 Lactulose (Enulose) 20 gm DAILY PRN PO CONSTIPATION; Start 01/17/19 at 18:17 Acetaminophen (Tylenol Tab) 650 mg Q4H PRN PO PAIN Last administered on 01/23/19at 22:48; Admin Dose 650 MG; Start 01/17/19 at 18:17 [facility]isc[facility] This patient ramirez... PRN PRN XX WOUND CARE; Start 01/17/19 at 18:17 Diagnostic Test (Pha) (Accu-Chek) 1 ea AC MEALS AND BEDTIME XX Last administered on 01/24/19at 11:43; Admin Dose 1 EA; Start 01/17/19 at 18:17 Diagnostic Test (Pha) (Accu-Chek) 1 ea 02 XX Last administered on 01/22/19at 02:00; Admin Dose 1 EA; Start 01/17/19 at 18:17 Albuterol/ Ipratropium (Duoneb) 3 ml Q2H RESP THERAPY PRN HHN SHORTNESS OF BREATH; Start 01/17/19 at 18:17 Atorvastatin Calcium (Lipitor) 40 mg QHS PO Last administered on 01/23/19 21:15 ; Admin Dose 40 MG; Start 01/17/19 at 18:17 Bisacodyl (Dulcolax) 10 mg BID PRN PO CONSTIPATION; Start 01/17/19 at 18:17 Folic Acid (Folic Acid) 1 mg DAILY PO Last administered on 01/24/19 08:16; Adm in Dose 1 MG; Start 01/17/19 at 18:17 Insulin Aspart (Novolog Insulin Pen) NOVOLOG *MILD* ALGORITHM WITH MEALS BEDTIME SC Last administered on 01/24/19 12:04; Admin Dose 1 UNIT; Start 01/17/19 at 18:17 Latanoprost (Xalatan) 1 drop HS BOTH EYES Last administered on 01/23/19 21:14; Admin Dose 1 DROP; Start 01/17/19 at 18:17 Levothyroxine Sodium (Synthroid) 125 mcg BEFORE BREAKFAST PO Last administered on 01/24/19 06:24; Admin Dose 125 MCG; Start 01/17/19 at 18:17 Metoprolol Tartrate (Lopressor) 50 mg BID PO Last administered on 01/24/19 08:16; Admin Dose 50 MG; Start 01/17/19 at 18:17 Nitroglycerin (Nitroglycerin (Sl Tab) 0.4 Mg) 0.4 tab Q5M PRN SL CHEST PAIN; Start 01/17/19 at 18:17 Nystatin (Nystatin Powder) 1 applic BID TOP Last administered on 01/23/19 21:19; Admin Dose 1 APPLIC; Start 01/17/19 at 18:17 Pantoprazole (Protonix Tab) 40 mg DAILY@06 PO Last administered on 01/24/19 06:24; Admin Dose 40 MG; Start 01/17/19 at 18:17 IV Flush (NS 3 ml) 3 ml PER PROTOCOL IV ; Start 01/17/19 at 18:17 Terazosin HCl (Hytrin) 10 mg HS PO Last administered on 01/23/19 21:15; Admin Dose 10 MG; Start 01/17/19 at 18:17 Miscellaneous Information 1 ea NOTE XX ; Start 01/17/19 at 18:17 Glucose (Glutose) 15 gm Q15M PRN PO DECREASED GLUCOSE; Start 01/17/19 at 18:17 Glucose (Glutose) 22.5 gm Q15M PRN PO DECREASED GLUCOSE; Start 01/17/19 at 18:17 Dextrose (D50w Syringe) 25 ml Q15M PRN IV DECREASED GLUCOSE; Start 01/17/19 at 18:17 Dextrose (D50w Syringe) 50 ml Q15M PRN IV DECREASED GLUCOSE; Start 01/17/19 at 18:17 Glucagon (Glucagen) 1 mg Q15M PRN IM DECREASED GLUCOSE; Start 01/17/19 at 18:17 Glucose (Glutose) 15 gm Q15M PRN BUCCAL DECREASED GLUCOSE; Start 01/17/19 at 18:17 Multivitamins Therapeutic (Theragran) 1 tab DAILY PO Last administered on 01/24/19 08:15; Admin Dose 1 TAB; Start 01/17/19 at 18:17 Zinc Sulfate (Zinc Sulfate) 220 mg DAILY PO Last administered on 01/24/19 08:15; Admin Dose 220 MG; Start 01/17/19 at 18:17 Ascorbic Acid (Vitamin C) 250 mg DAILY PO Last administered on 01/24/19 08:16; Admin Dose 250 MG; Start 01/17/19 at 18:17 Albuterol/ Ipratropium (Duoneb) 3 ml Q6H RESP THERAPY HHN Last administered on 01/24/19 13:44; Admin Dose 3 ML; Start 01/17/19 at 18:17 Multi-Ingredient Ointment (Aquaphor Oint 52.5 Gm) 1 applic BID TOP Last administered on 01/24/19 00:21; Admin Dose 1 APPLIC; Start 01/17/19 at 18:17 Aspirin (Aspirin) 81 mg DAILY PO Last administered on 01/24/19 08:16; Admin Dose 81 MG; Start 01/17/19 at 18:17 Ferrous Sulfate (Ferrous Sulfate (Ec)) 325 mg WITH MEALS PO Last administered on 01/24/19 11:44; Admin Dose 325 MG; Start 01/17/19 at 18:17 Bisacodyl (Dulcolax Supp) 10 mg DAILY PRN [place] CONSTIPATION; Start 01/17/19 at 18 :17 Caspofungin 50 mg/ Sodium Chloride 250 ml @ 250 mls/hr Q24H IVPB Last administered on 01/23/19at 17:38; Admin Dose 250 MLS/HR; Start 01/17/19 at 18:17 Zinc Acetate/ Diphenhydramine (Benadryl 2% Cr) 1 applic Q6H PRN TOP ITCHING; Start 01/19/19 at 16:37 Nystatin/ Triamcinolone Acetonide (Mycolog Cr) 1 applic BID TOP Last administered on 01/23/19at 21:20; Admin Dose 1 APPLIC; Start 01/19/19 at 22:41 Dextrose 1,000 ml @ 40 mls/hr Q24H IV Last administered on 01/24/19at 06:25; Admin Dose 40 MLS/HR; Start 01/20/19 at 06:30 Epoetin Dae-epbx (RETACRIT(non-esrd)) 20,000 unit Mo@1700 SC Last administered on 01/20/19at 18:13; Admin Dose 20,000 UNIT; Start 01/20/19 at 17:00 Furosemide (Lasix) 20 mg DAILY IV Last administered on 01/24/19at 08:17; Admin Dose 20 MG; Start 01/21/19 at 09:00 IV Flush (NS 10 ml) 10 ml PRN PRN IV IV PROTOCOL; Start 01/20/19 at 14:30 Cyanocobalamin (Vitamin B12 Inj) 1,000 mcg Q7D IM ; Start 02/03/19 at 09:00 Cyanocobalamin (Vitamin B12 Inj) 1,000 mcg DAILY IM Last administered on 01/24/19at 08:17; Admin Dose 1,000 MCG; Start 01/21/19 at 09:00; Stop 01/27/19 at 09:00 MICHELLE FROST MD January 24, 2019 13:48
--- NOTE | 2019-01-24 14:37 | CONS ---
Assessment/Plan Assessment/Plan Hospital Course (Demo Recall) IMPRESSION: 1. Atrial fibrillation, currently rate controlled.-off systemic anticoagulation due to anemia. ON asa only due to anemia 2. Possible congestive heart failure by chest x-ray, which will be diastolic, acute on chronic by most recent echo with an EF of 60%. 3. Tricuspid regurgitation, moderate by most recent echo. 4. Acute on chronic renal failure-mild worsening 5. Possible pneumonia. 6. History of coronary artery disease, status post coronary artery bypass graft surgery. 7. Dyslipidemia. 8. Rheumatoid arthritis. 9. Groin cellulitis. 10. Anemia-worsening again today requiring transfusions PRBC's.Now post-op s/p endoscopy ? findings 11. Diabetes mellitus. 12. Sepsis 14. abdominal mass Recc: -Now on tele -serial ecg's -Continue BB as tolerated -s/p dose of IVP digoxin with improved HR's overall -Baby asa as tolerated only -Continue lasix -Continue statin -Continue abx's/antifungals and f/u cx data -Ongoing GI eval of abd mass Consultation Date/Type/Reason Admit Date/Time Jan 17, 2019 at 15:58 Initial Consult Date 01/18/19 Type of Consult Cardiology Reason for Consultation CHF Requesting Provider: IVAN AKHTAR MD Date/Time of Note DATE: 01/24/19 TIME: 14:34 Exam/Review of Systems Vital Signs Vitals Vital Signs Date Temp Pulse Resp B/P (MAP) Pulse Ox O2 O2 Flow FiO2 Time Delivery Rate 01/24/19 69 24 100 Nasal 4.0 13:47 Cannula 01/24/19 97.7 113/57 12:06 (75) Intake and Output 01/23/19 01/23/19 01/24/19 1515:00 23:00 07:00 IntakeIntake Total 950 ml 690 ml OutputOutput Total 650 ml 450 ml BalanceBalance 300 ml 240 ml Exam Exam Review of Systems: CONSTITUTIONAL: No fevers, chills. PULMONARY: No sob CARDIOVASCULAR: No chest pain/palpitations GASTROINTESTINAL: No nausea/vomiting. GENITOURINARY: No hematuria/dysuria. MUSCULOSKELETAL: No myagias/arthalgias. PSYCHIATRIC: The patient denies depression. NEUROLOGIC: lethargic Constitutional: other (sleeping but arousable) Psych: no complaints Head: normocephalic ENMT: mucosa pink and moist Neck: supple, jvd (9 cm water) Respiratory: diminished breath sounds Cardiovascular: regular rate and rhythm Gastrointestinal: soft, non-tender Musculoskeletal: muscle weakness (generaliozed) Extremities: edema (trace/B) Neurological: lethargic Skin: other (chaffing/skin breakdown all over body) Labs Result Diagram: 01/24/19 0603 01/24/19 0603 Results 24hrs Laboratory Tests Test 01/23/19 17:33 01/23/19 21:08 01/24/19 06:03 01/24/19 08:12 Bedside Glucose 177 159 129 White Blood Count 17.6 H Red Blood Count 2.84 L Hemoglobin 8.3 L Hematocrit 26.1 L Mean Corpuscular Volume 91.9 Mean Corpuscular 29.2 Hemoglobin Mean Corpuscular 31.8 L Hemoglobin Concent Red Cell Distribution 17.7 H Width Platelet Count 259 Mean Platelet Volume 10.5 H Immature Granulocytes % 0.700 H Neutrophils % 88.8 H Segmented Neutrophils 79 H % (Manual) Band Neutrophils % 16 H (Manual) Lymphocytes % 5.7 L Lymphocytes % (Manual) 2 L Monocytes % 4.3 Monocytes % (Manual) 3 Eosinophils % 0.3 Basophils % 0.2 Nucleated Red Blood 0.0 Cells % Immature Granulocytes # 0.120 H Neutrophils # 15.6 H Neutrophils # (Manual) 14.4 H Band Neutrophils # 2.8 H Lymphocytes (Manual) 0.3 L Lymphocytes # 1.0 Monocytes # 0.8 Monocytes # (Manual) 0.5 Eosinophils # 0.1 Basophils # 0.0 Nucleated Red Blood 0.0 Cells # Platelet Estimate NORMAL Polychromasia 1+ Hypochromasia 1+ Poikilocytosis 3+ Anisocytosis 3+ Macrocytosis 2+ Spherocytes 1+ Target Cells 2+ Sodium Level 134 L Potassium Level 4.1 Chloride Level 101 Carbon Dioxide Level 25 Anion Gap 8 Blood Urea Nitrogen 36 H Creatinine 1.14 Est Glomerular Filtrat Rate mL/min Glucose Level 244 #H Calcium Level 8.3 L Test 01/24/19 11:42 Bedside Glucose 164 Medications Medications Current Medications Docusate Sodium (Colace) 100 mg BID PO Last administered on 01/24/19at 08:16; Ad min Dose 100 MG; Start 01/17/19 at 18:17 Lactulose (Enulose) 20 gm DAILY PRN PO CONSTIPATION; Start 01/17/19 at 18:17 Acetaminophen (Tylenol Tab) 650 mg Q4H PRN PO PAIN Last administered on 01/23/19 22:48; Admin Dose 650 MG; Start 01/17/19 at 18:17 Miscellaneous Information ([facility] This patient ramirez... PRN PRN XX WOUND CARE; Start 01/17/19 at 18:17 Diagnostic Test (Pha) (Accu-Chek) 1 ea AC MEALS AND BEDTIME XX Last administered on 01/24/19 11:43; Admin Dose 1 EA; Start 01/17/19 at 18:17 Diagnostic Test (Pha) (Accu-Chek) 1 ea 02 XX Last administered on 01/22/19 02:00; Admin Dose 1 EA; Start 01/17/19 at 18:17 Albuterol/ Ipratropium (Duoneb) 3 ml Q2H RESP THERAPY PRN HHN SHORTNESS OF BREATH; Start 01/17/19 at 18:17 Atorvastatin Calcium (Lipitor) 40 mg QHS PO Last administered on 01/23/19 21:15; Admin Dose 40 MG; Start 01/17/19 at 18:17 Bisacodyl (Dulcolax) 10 mg BID PRN PO CONSTIPATION; Start 01/17/19 at 18:17 Folic Acid (Folic Acid) 1 mg DAILY PO Last administered on 01/24/19 08:16; Admin Dose 1 MG; Start 01/17/19 at 18:17 Insulin Aspart (Novolog Insulin Pen) NOVOLOG *MILD* ALGORITHM WITH MEALS BEDTIME SC Last administered on 01/24/19 12:04; Admin Dose 1 UNIT; Start 01/17/19 at 18:17 Latanoprost (Xalatan) 1 drop HS BOTH EYES Last administered on 01/23/19 21:14; Admin Dose 1 DROP; Start 01/17/19 at 18:17 Levothyroxine Sodium (Synthroid) 125 mcg BEFORE BREAKFAST PO Last administered on 01/24/19 06:24; Admin Dose 125 MCG; Start 01/17/19 at 18:17 Metoprolol Tartrate (Lopressor) 50 mg BID PO Last administered on 01/24/19 08:16; Admin Dose 50 MG; Start 01/17/19 at 18:17 Nitroglycerin (Nitroglycerin (Sl Tab) 0.4 Mg) 0.4 tab Q5M PRN SL CHEST PAIN; Start 01/17/19 at 18:17 Nystatin (Nystatin Powder) 1 applic BID TOP Last administered on 01/23/19 21:19; Admin Dose 1 APPLIC; Start 01/17/19 at 18:17 Pantoprazole (Protonix Tab) 40 mg DAILY@06 PO Last administered on 01/24/19at 06:24; Admin Dose 40 MG; Start 01/17/19 at 18:17 IV Flush (NS 3 ml) 3 ml PER PROTOCOL IV ; Start 01/17/19 at 18:17 Terazosin HCl (Hytrin) 10 mg HS PO Last administered on 01/23/19 21:15; Admin Dose 10 MG; Start 01/17/19 at 18:17 Miscellaneous Information 1 ea NOTE XX ; Start 01/17/19 at 18:17 Glucose (Glutose) 15 gm Q15M PRN PO DECREASED GLUCOSE; Start 01/17/19 at 18:17 Glucose (Glutose) 22.5 gm Q15M PRN PO DECREASED GLUCOSE; Start 01/17/19 at 18:17 Dextrose (D50w Syringe) 25 ml Q15M PRN IV DECREASED GLUCOSE; Start 01/17/19 at 18:17 Dextrose (D50w Syringe) 50 ml Q15M PRN IV DECREASED GLUCOSE; Start 01/17/19 at 18:17 Glucagon (Glucagen) 1 mg Q15M PRN IM DECREASED GLUCOSE; Start 01/17/19 at 18:17 Glucose (Glutose) 15 gm Q15M PRN BUCCAL DECREASED GLUCOSE; Start 01/17/19 at 18:17 Multivitamins Therapeutic (Theragran) 1 tab DAILY PO Last administered on 01/24/19at 08:15; Admin Dose 1 TAB; Start 01/17/19 at 18:17 Zinc Sulfate (Zinc Sulfate) 220 mg DAILY PO Last administered on 01/24/19 08:15; Admin Dose 220 MG; Start 01/17/19 at 18:17 Ascorbic Acid (Vitamin C) 250 mg DAILY PO Last administered on 01/24/19at 08:16; Admin Dose 250 MG; Start 01/17/19 at 18:17 Albuterol/ Ipratropium (Duoneb) 3 ml Q6H RESP THERAPY HHN Last administered on 01/24/19 13:44; Admin Dose 3 ML; Start 01/17/19 at 18:17 Multi-Ingredient Ointment (Aquaphor Oint 52.5 Gm) 1 applic BID TOP Last administered on 01/24/19 00:21; Admin Dose 1 APPLIC; Start 01/17/19 at 18:17 Aspirin (Aspirin) 81 mg DAILY PO Last administered on 01/24/19 08:16; Admin Dose 81 MG; Start 01/17/19 at 18:17 Ferrous Sulfate (Ferrous Sulfate (Ec)) 325 mg WITH MEALS PO Last administered on 01/24/19 11:44; Admin Dose 325 MG; Start 01/17/19 at 18:17 Bisacodyl (Dulcolax Supp) 10 mg DAILY PRN [place] CONSTIPATION; Start 01/17/19 at 18:17 Caspofungin 50 mg/ Sodium Chloride 250 ml @ 250 mls/hr Q24H IVPB Last administered on 01/23/19 17:38; Admin Dose 250 MLS/HR; Start 01/17/19 at 18:17 Zinc Acetate/ Diphenhydramine (Benadryl 2% Cr) 1 applic Q6H PRN TOP ITCHING; Start 01/19/19 at 16:37 Nystatin/ Triamcinolone Acetonide (Mycolog Cr) 1 applic BID TOP Last administered on 01/23/19 21:20; Admin Dose 1 APPLIC; Start 01/19/19 at 22:41 Dextrose 1,000 ml @ 40 mls/hr Q24H IV Last administered on 01/24/19 06:25; Admin Dose 40 MLS/HR; Start 01/20/19 at 06:30 Epoetin Dae-epbx (RETACRIT(non-esrd)) 20,000 unit Mo@1700 SC Last administered on 01/20/19 18:13; Admin Dose 20,000 UNIT; Start 01/20/19 at 17:00 Furosemide (Lasix) 20 mg DAILY IV Last administered on 01/24/19 08:17; Admin Dose 20 MG; Start 01/21/19 at 09:00 IV Flush (NS 10 ml) 10 ml PRN PRN IV IV PROTOCOL; Start 01/20/19 at 14:30 Cyanocobalamin (Vitamin B12 Inj) 1,000 mcg Q7D IM ; Start 02/03/19 at 09:00 Cyanocobalamin (Vitamin B12 Inj) 1,000 mcg DAILY IM Last administered on 01/24/19at 08:17; Admin Dose 1,000 MCG; Start 01/21/19 at 09:00; Stop 01/27/19 at 09:00 MARJORIE JAIN January 24, 2019 14:37
[2019-01-24] MEDS: BALSAM PERU/CASTOR OIL 60 GM TUBE TOP SCH ×2 (16:35→21:32)
[2019-01-24] MEDS: NYSTATIN/TRIAMCINOLONE 15 GM CR TOP SCH ×2 (16:36→21:32)
[2019-01-24] MEDS ORDERED: HYDROCODONE/APAP (5/325) TAB PO ONE ×2 (17:00→21:30)
[2019-01-24] MEDS: CASPOFUNGIN 50 MG in SOD CHLORIDE 0.9% 250 ML IVPB SCH (17:15)
[2019-01-24] MEDS: NYSTATIN 30 GM POWDER BTL TOP SCH ×2 (18:09→21:32)
[2019-01-24] MEDS: LATANOPROST 0.005% 2.5 ML OPH BOTH EYES SCH (21:00)
[2019-01-24] MEDS: ATORVASTATIN 40 MG TAB PO SCH (21:29)
[2019-01-24] MEDS: DIPHENHYDRAMINE 2%/ZINC 28.4 GM CR TOP PRN (21:30)
[2019-01-24] MEDS: TERAZOSIN 5 MG CAP PO SCH (21:36)
[2019-01-25] VITALS (12 sets, daily range): BP systolic 16–177; BP diastolic 6–95; PULSE 58–94; RESP 18–20
[2019-01-25] MEDS: ACCU-CHEK XX SCH ×5 (02:00→21:00)
[2019-01-25] MEDS: ALBUTEROL/IPRATROPIUM (NEB) 3 ML AMP HHN SCH ×4 (02:04→19:50)
[2019-01-25] MEDS: PANTOPRAZOLE (EC) 40 MG TAB PO SCH (05:53)
[2019-01-25] MEDS: LEVOTHYROXINE 125 MCG TAB PO SCH (05:53)
[2019-01-25] MEDS: INSULIN ASPART [NOVOLOG] 3 ML PEN SC SCH ×4 (07:55→21:00)
[2019-01-25] MEDS: DOCUSATE SODIUM 100 MG CAP PO SCH ×2 (09:00→20:30)
[2019-01-25] MEDS: ZINC SULFATE 220 MG CAP PO SCH (09:00)
[2019-01-25] MEDS: MULTIVITAMINS THERAPEUTIC TAB PO SCH (09:30)
[2019-01-25] MEDS: FERROUS SULFATE (EC) 325 MG TAB PO SCH ×3 (09:30→17:24)
[2019-01-25] MEDS: ASPIRIN 81 MG TAB PO SCH (09:30)
[2019-01-25] MEDS: FOLIC ACID 1 MG TAB PO SCH (09:30)
[2019-01-25] MEDS: ASCORBIC ACID 250 MG TAB PO SCH (09:30)
[2019-01-25] MEDS: METOPROLOL 50 MG TAB PO SCH ×2 (09:31→20:30)
[2019-01-25] MEDS: FUROSEMIDE 20 MG INJ IV SCH (09:32)
[2019-01-25] MEDS: CYANOCOBALAMIN 1000 MCG INJ IM SCH ×2 (09:32→10:14)
--- NOTE | 2019-01-25 12:34 | CONS ---
Assessment/Plan Assessment/Plan Hospital Course 88 yo M with multiple comorbidities who initially presented for evaluation of hiccups. He was noted to become acutely altered... for which neurology is consulted. He was noted to develop ams on 01/21 around 7pm and noted on 01/22 to be unresponsive... prompting a code stroke activation. The clinical picture suggests an acute toxic-metabolic encephalopathy.. A focal CARBIDE TOOL MAKER process is, though, not yet excluded. CTH is without acute ischemia, though notable for chronic infarcts. 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 P: Await MRI brain for further characterization Add MRA H c/o contrast and MRA neck c/ and s/ contrast for the same ASA/Lipitor pending the above Permissive HTN up to 220/110 for 24h pending the above [place] as able Limit sedating medications where possible PT/OT/ST as tolerated Other medical management per primary Will follow clinically, to recommend neurologic studies, as necessary Consultation Date/Type/Reason Admit Date/Time Jan 17, 2019 at 15:58 Type of Consult Neurology Reason for Consultation ams Requesting Provider: IVAN AKHTAR MD Date/Time of Note DATE: 01/25/19 TIME: 12:32 24 HR Interval Summary Free Text/Dictation Limited historian. Denies acute Sx.. Continues acute care Exam Vital Signs Vitals Vital Signs Date Temp Pulse Resp B/P (MAP) Pulse Ox O2 O2 Flow FiO2 Time Delivery Rate 01/25/19 97.0 67 19 98/50 (66) 100 Nasal 12:16 Cannula 01/25/19 2.0 08:13 Intake and Output 01/24/19 01/24/19 01/25/19 1515:00 23:00 07:00 IntakeIntake Total 700 ml 1020 ml 500 ml OutputOutput Total 1958 ml 380 ml BalanceBalance 700 ml -938 ml 120 ml Exam PE: Gen Appearance: No Apparent Distress HEENT: Normocephalic Cardiovascular: Regular rate Abdomen: Soft Extremities: Dry, skin peeling.. NE: The patient was obtunded and nonverbal. Cranial nerve examination was limited by mental status. Pupils were equal and reactive to light. There was no afferent pupillary defect. Funduscopic examination was limited. Face was grossly symmetric. Tone was normal. Muscle bulk was normal. I did not see fasciculations. The patient's limbs were grossly symmetric. Coordination and gait testing was limited by mental status. Arm and leg reflexes were within normal limits and symmetric. Gray's sign was absent. Plantar responses were flexor. ANGE RMAIREZ January 25, 2019 12:34
[2019-01-25] MEDS: NYSTATIN/TRIAMCINOLONE 15 GM CR TOP SCH ×2 (12:59→21:14)
[2019-01-25] MEDS: AQUAPHOR 52.5 GM OINT TOP SCH ×2 (12:59→20:35)
[2019-01-25] MEDS: NYSTATIN 30 GM POWDER BTL TOP SCH ×2 (13:00→20:33)
[2019-01-25] MEDS: BALSAM PERU/CASTOR OIL 60 GM TUBE TOP SCH ×2 (13:00→20:34)
--- NOTE | 2019-01-25 14:09 | CONS ---
Assessment/Plan Assessment/Plan Hospital Course (Demo Recall) No acute changes, awake, looks comfortable, no fevers Microbiology blood cultures repeated on January 17 grew coag negative staph suspicious of onset urine culture has been negative Antimicrobials: s/p Vancomycin, Invanz Physical examination: Obese well-developed chronically ill-appearing - [place] man who is awake in no distress. Head atraumatic normocephalic sclera nonicteric. Neck is supple chest rise symmetrical breath sounds diminished bases. Heart: S1-S2. Abdomen obese soft bowel sounds present extremities without cyanosis, bilateral edema Assessment: 1. Systemic inflammatory response syndrome with ongoing leukocytosis 2. Status post pneumonia 3. Coronary artery disease/history of CABG 4. Advanced rheumatoid arthritis 5. Chronic atrial fibrillation 6. Diabetes 7. BPH 8. Coag negative staph bacteremia consistent with contaminant 9. Acute on chronic anemia===> s/p EGD/colonoscopy 01/09/19 10. Status post right epididymitis 11. Pancreatic lesion per CT, unlikely neoplasm per oncology notes Plan: Stable, wbc trending down, continue observing off abx, reculture prn Consultation Date/Type/Reason Admit Date/Time Jan 17, 2019 at 15:58 Initial Consult Date 01/18/19 Type of Consult id Requesting Provider: IVAN AKHTAR MD Date/Time of Note DATE: 01/25/19 TIME: 14:08 Exam/Review of Systems Exam Vitals Vital Signs Date Temp Pulse Resp B/P (MAP) Pulse Ox O2 O2 Flow FiO2 Time Delivery Rate 01/25/19 62 18 100 Nasal 2.0 13:09 Cannula 01/25/19 97.0 98/50 (66) 12:16 Intake and Output 01/24/19 01/24/19 01/25/19 1515:00 23:00 07:00 IntakeIntake Total 700 ml 1020 ml 500 ml OutputOutput Total 1958 ml 380 ml BalanceBalance 700 ml -938 ml 120 ml Results Result Diagram: 01/25/19 0549 01/25/19 0549 Results 24hrs Laboratory Tests Test 01/24/19 16:48 01/24/19 20:37 01/25/19 05:49 01/25/19 08:23 Bedside Glucose 142 146 116 White Blood Count 14.4 H Red Blood Count 2.60 L Hemoglobin 7.7 L Hematocrit 23.8 L Mean Corpuscular Volume 91.5 Mean Corpuscular 29.6 Hemoglobin Mean Corpuscular 32.4 Hemoglobin Concent Red Cell Distribution 17.4 H Width Platelet Count 242 Mean Platelet Volume 10.6 H Immature Granulocytes % 1.000 H Neutrophils % 84.8 H Lymphocytes % 7.9 L Monocytes % 5.8 Eosinophils % 0.3 Basophils % 0.2 Nucleated Red Blood 0.0 Cells % Immature Granulocytes # 0.150 H Neutrophils # 12.2 H Lymphocytes # 1.1 Monocytes # 0.8 Eosinophils # 0.1 Basophils # 0.0 Nucleated Red Blood 0.0 Cells # Sodium Level 137 Potassium Level 3.9 Chloride Level 104 Carbon Dioxide Level 28 Anion Gap 5 Blood Urea Nitrogen 36 H Creatinine 1.12 Est Glomerular Filtrat Rate mL/min Glucose Level 106 # Calcium Level 8.5 Test 01/25/19 12:09 Bedside Glucose 126 Medications Medication Current Medications Docusate Sodium (Colace) 100 mg BID PO Last administered on 01/24/19 21:29; Admin Dose 100 MG; Start 01/17/19 at 18:17 Lactulose (Enulose) 20 gm DAILY PRN PO CONSTIPATION; Start 01/17/19 at 18:17 Acetaminophen (Tylenol Tab) 650 mg Q4H PRN PO PAIN Last administered on 01/23/19 22:48; Admin Dose 650 MG; Start 01/17/19 at 18:17 Miscellaneous Information (Pending [facility] Order For Wound Care) This patient ramirez... PRN PRN XX WOUND CARE; Start 01/17/19 at 18:17 Diagnostic Test (Pha) (Accu-Chek) 1 ea AC MEALS AND BEDTIME XX Last administered on 01/25/19 12:10; Admin Dose 1 EA; Start 01/17/19 at 18:17 Diagnostic Test (Pha) (Accu-Chek) 1 ea 02 XX Last administered on 01/22/19 02:0 0; Admin Dose 1 EA; Start 01/17/19 at 18:17 Albuterol/ Ipratropium (Duoneb) 3 ml Q2H RESP THERAPY PRN HHN SHORTNESS OF BREATH; Start 01/17/19 at 18:17 Atorvastatin Calcium (Lipitor) 40 mg QHS PO Last administered on 01/24/19 21:29; Admin Dose 40 MG; Start 01/17/19 at 18:17 Bisacodyl (Dulcolax) 10 mg BID PRN PO CONSTIPATION; Start 01/17/19 at 18:17 Folic Acid (Folic Acid) 1 mg DAILY PO Last administered on 01/25/19 09:30; Admin Dose 1 MG; Start 01/17/19 at 18:17 Insulin Aspart (Novolog Insulin Pen) NOVOLOG *MILD* ALGORITHM WITH MEALS BEDTIME SC Last administered on 01/24/19 16:55; Admin Dose 1 UNIT; Start 01/17/19 at 18:17 Latanoprost (Xalatan) 1 drop HS BOTH EYES Last administered on 01/23/19 21:14; Admin Dose 1 DROP; Start 01/17/19 at 18:17 Levothyroxine Sodium (Synthroid) 125 mcg BEFORE BREAKFAST PO Last administered on 01/25/19 05:53; Admin Dose 125 MCG; Start 01/17/19 at 18:17 Metoprolol Tartrate (Lopressor) 50 mg BID PO Last administered on 01/25/19 09:31; Admin Dose 50 MG; Start 01/17/19 at 18:17 Nitroglycerin (Nitroglycerin (Sl Tab) 0.4 Mg) 0.4 tab Q5M PRN SL CHEST PAIN; Start 01/17/19 at 18:17 Nystatin (Nystatin Powder) 1 applic BID TOP Last administered on 01/25/19 13:00; Admin Dose 1 APPLIC; Start 01/17/19 at 18:17 Pantoprazole (Protonix Tab) 40 mg DAILY@06 PO Last administered on 01/25/19 05:53; Admin Dose 40 MG; Start 01/17/19 at 18:17 IV Flush (NS 3 ml) 3 ml PER PROTOCOL IV ; Start 01/17/19 at 18:17 Terazosin HCl (Hytrin) 10 mg HS PO Last administered on 01/24/19 21:36; Admin Dose 10 MG; Start 01/17/19 at 18:17 Miscellaneous Information 1 ea NOTE XX ; Start 01/17/19 at 18:17 Glucose (Glutose) 15 gm Q15M PRN PO DECREASED GLUCOSE; Start 01/17/19 at 18:17 Glucose (Glutose) 22.5 gm Q15M PRN PO DECREASED GLUCOSE; Start 01/17/19 at 18:17 Dextrose (D50w Syringe) 25 ml Q15M PRN IV DECREASED GLUCOSE; Start 01/17/19 at 18:17 Dextrose (D50w Syringe) 50 ml Q15M PRN IV DECREASED GLUCOSE; Start 01/17/19 at 18:17 Glucagon (Glucagen) 1 mg Q15M PRN IM DECREASED GLUCOSE; Start 01/17/19 at 18:17 Glucose (Glutose) 15 gm Q15M PRN BUCCAL DECREASED GLUCOSE; Start 01/17/19 at 18:17 Multivitamins Therapeutic (Theragran) 1 tab DAILY PO Last administered on 01/25/19 09:30; Admin Dose 1 TAB; Start 01/17/19 at 18:17 Zinc Sulfate (Zinc Sulfate) 220 mg DAILY PO Last administered on 01/24/19 08:15; Admin Dose 220 MG; Start 01/17/19 at 18:17 Ascorbic Acid (Vitamin C) 250 mg DAILY PO Last administered on 01/25/19 09:30; Admin Dose 250 MG; Start 01/17/19 at 18:17 Albuterol/ Ipratropium (Duoneb) 3 ml Q6H RESP THERAPY HHN Last administered on 01/25/19 13:09; Admin Dose 3 ML; Start 01/17/19 at 18:17 Multi-Ingredient Ointment (Aquaphor Oint 52.5 Gm) 1 applic BID TOP Last administered on 01/25/19 12:59; Admin Dose 1 APPLIC; Start 01/17/19 at 18:17 Aspirin (Aspirin) 81 mg DAILY PO Last administered on 01/25/19 09:30; Admin Dose 81 MG; Start 01/17/19 at 18:17 Ferrous Sulfate (Ferrous Sulfate (Ec)) 325 mg WITH MEALS PO Last administered on 01/25/19 09:30; Admin Dose 325 MG; Start 01/17/19 at 18:17 Bisacodyl (Dulcolax Supp) 10 mg DAILY PRN [place] CONSTIPATION; Start 01/17/19 at 18:17 Zinc Acetate/ Diphenhydramine (Benadryl 2% Cr) 1 applic Q6H PRN TOP ITCHING Last administered on 01/24/19 21:30; Admin Dose 1 APPLIC; Start 01/19/19 at 16:37 Nystatin/ Triamcinolone Acetonide (Mycolog Cr) 1 applic BID TOP Last administered on 01/25/19at 12:59; Admin Dose 1 APPLIC; Start 01/19/19 at 22:41 Epoetin Dae-epbx (RETACRIT(non-esrd)) 20,000 unit Mo@1700 SC Last administered on 01/20/19at 18:13; Admin Dose 20,000 UNIT; Start 01/20/19 at 17:00 Furosemide (Lasix) 20 mg DAILY IV Last administered on 01/25/19at 09:32; Admin Dose 20 MG; Start 01/21/19 at 09:00 IV Flush (NS 10 ml) 10 ml PRN PRN IV IV PROTOCOL; Start 01/20/19 at 14:30 Cyanocobalamin (Vitamin B12 Inj) 1,000 mcg Q7D IM ; Start 02/03/19 at 09:00 Cyanocobalamin (Vitamin B12 Inj) 1,000 mcg DAILY IM Last administered on 01/24/19at 08:17; Admin Dose 1,000 MCG; Start 01/21/19 at 09:00; Stop 01/27/19 at 09:00 LUCIAN HARKINS NP January 25, 2019 14:09
--- NOTE | 2019-01-25 15:45 | CONS ---
Assessment/Plan Assessment/Plan Assessment/Plan (Daily) Interval hx: Pending morning labs. M 1. Severe anemia likely due to chronic disease, last work up while admitted to [facility] about a week ago was neg for GI bleeding, including EGD/colon which was done -s/p EGD and colonoscopy by Dr Frost 01/09/19 which didn't find an obvious GI etiology to explain anemia. AVM or a small lesion could be missed due to poor prep. Pt likely needs capsule endoscopy -Neg fob, elevate retic, Low iron, tibc, [place] [id number] 2. Cystic lesion along pancreas body - 4.3 cm cystic lesion along the pancreas body, enlarged since 10/10/2012 (previously 2.4 cm). 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 -CEA wnl 3. Severe gastritis 4. Hemorrhoids 5. Hital hernia 6. A fib, -eliquis was stopped 01/06 during previous admission, on ASA 7. COPD 8. HTN 9. Hypothyroidism 10. Bilateral groin cellulitis 11. Rheumatoid arthritis. 12. Diabetes mellitus. 13. Peripheral vascular disease. 14. CHF 15. 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 Sepsis- Leukocytosis up to 29, urine cx was unremarkable CT Abd 01/15/19 IMPRESSION: 1. No intra-abdominal inflammation or lymphadenopathy. 2. 4.3 cm cystic lesion along the pancreas body, enlarged since 10/10/2012 (previously 2.4 cm). 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 If clinically warranted, this could be further evaluated with contrast-enhanced MRI. 3. No obstructive uropathy or urinary stone. 4. Enlarged prostate gland. Correlation with PSA level is recommended. 5. Moderate atherosclerotic arterial calcifications. 6. Diffuse subcutaneous edema. 7. Status post posterior decompression and fusion at L5-S1. A malpositioned pedicle screw and impinges on the left L4-5 neural foramen, unchanged. 8. Grade 2 degenerative L4 anterolisthesis and grade 1 degenerative L5 anterolisthesis. 9. Questionable CVA, encephalopathy resolved 10. Discoloration of the skin of the lower extremity and also upper extremity Plan Stop miralax for mx bm, hold laxatives for diarrhea Recommend carranza cx Pt will need outpatient EUS to evaluate pancreatic cystic lesion, this can be done as an outpatient at outside facility by me Recommend capsule endoscopy as outpatient GI prophylaxis: protonix QD Pain management Consultation Date/Type/Reason Admit Date/Time Jan 17, 2019 at 15:58 Initial Consult Date 01/18/19 Requesting Provider: IVAN AKHTAR MD Date/Time of Note DATE: 01/25/19 TIME: 15:45 24 HR Interval Summary Constitutional: no complaints Exam/Review of Systems Exam Vitals Vital Signs Date Temp Pulse Resp B/P (MAP) Pulse Ox O2 O2 Flow FiO2 Time Delivery Rate 01/25/19 62 18 100 Nasal 2.0 13:09 Cannula 01/25/19 97.0 98/50 (66) 12:16 Intake and Output 01/24/19 01/24/19 01/25/19 1515:00 23:00 07:00 IntakeIntake Total 700 ml 1020 ml 500 ml OutputOutput Total 1958 ml 380 ml BalanceBalance 700 ml -938 ml 120 ml Constitutional: alert, oriented, well developed Psych: no complaints, nl mood/affect Head: normocephalic, atraumatic Eyes: nl conjunctiva, EOMI, nl lids, nl sclera, PERRL ENMT: nl external ears & nose, nl lips & teeth, nl nasal mucosa & septum Neck: supple, non-tender Respiratory: clear to auscultation, normal air movement Cardiovascular: regular rate and rhythm, nl pulses Gastrointestinal: soft, nl liver, spleen, non-tender Musculoskeletal: nl extremities to inspection, nl gait and stance Extremities: normal pulses Neurological: [employer] II-XII intact, nl mental status, nl speech, nl strength Skin: nl turgor; No rash or lesions Lymph: nl lymph nodes Results Result Diagram: 01/25/19 0549 01/25/19 0549 Results 24hrs Laboratory Tests Test 01/24/19 16:48 01/24/19 20:37 01/25/19 05:49 01/25/19 08:23 Bedside Glucose 142 146 116 White Blood Count 14.4 H Red Blood Count 2.60 L Hemoglobin 7.7 L Hematocrit 23.8 L Mean Corpuscular Volume 91.5 Mean Corpuscular 29.6 Hemoglobin Mean Corpuscular 32.4 Hemoglobin Concent Red Cell Distribution 17.4 H Width Platelet Count 242 Mean Platelet Volume 10.6 H Immature Granulocytes % 1.000 H Neutrophils % 84.8 H Lymphocytes % 7.9 L Monocytes % 5.8 Eosinophils % 0.3 Basophils % 0.2 Nucleated Red Blood 0.0 Cells % Immature Granulocytes # 0.150 H Neutrophils # 12.2 H Lymphocytes # 1.1 Monocytes # 0.8 Eosinophils # 0.1 Basophils # 0.0 Nucleated Red Blood 0.0 Cells # Sodium Level 137 Potassium Level 3.9 Chloride Level 104 Carbon Dioxide Level 28 Anion Gap 5 Blood Urea Nitrogen 36 H Creatinine 1.12 Est Glomerular Filtrat Rate mL/min Glucose Level 106 # Calcium Level 8.5 Test 01/25/19 12:09 Bedside Glucose 126 Medications Medication Current Medications Docusate Sodium (Colace) 100 mg BID PO Last administered on 01/24/19 21:29; Admin Dose 100 MG; Start 01/17/19 at 18:17 Lactulose (Enulose) 20 gm DAILY PRN PO CONSTIPATION; Start 01/17/19 at 18:17 Acetaminophen (Tylenol Tab) 650 mg Q4H PRN PO PAIN Last administered on 01/23/19 22:48; Admin Dose 650 MG; Start 01/17/19 at 18:17 Miscellaneous Information ([facility]) This patient ramirez... PRN PRN XX WOUND CARE; Start 01/17/19 at 18:17 Diagnostic Test (Pha) (Accu-Chek) 1 ea AC MEALS AND BEDTIME XX Last administered on 01/25/19 12:10; Admin Dose 1 EA; Start 01/17/19 at 18:17 Diagnostic Test (Pha) (Accu-Chek) 1 ea 02 XX Last administered on 01/22/19 02:00; Admin Dose 1 EA; Start 01/17/19 at 18:17 Albuterol/ Ipratropium (Duoneb) 3 ml Q2H RESP THERAPY PRN HHN SHORTNESS OF BREATH; Start 01/17/19 at 18:17 Atorvastatin Calcium (Lipitor) 40 mg QHS PO Last administered on 01/24/19 21:29; Admin Dose 40 MG; Start 01/17/19 at 18:17 Bisacodyl (Dulcolax) 10 mg BID PRN PO CONSTIPATION; Start 01/17/19 at 18:17 Folic Acid (Folic Acid) 1 mg DAILY PO Last administered on 01/25/19 09:30; Admin Dose 1 MG; Start 01/17/19 at 18:17 Insulin Aspart (Novolog Insulin Pen) NOVOLOG *MILD* ALGORITHM WITH MEALS BEDTIME SC Last administered on 01/24/19 16:55; Admin Dose 1 UNIT; Start 01/17/19 at 18:17 Latanoprost (Xalatan) 1 drop HS BOTH EYES Last administered on 01/23/19 21:14; Admin Dose 1 DROP; Start 01/17/19 at 18:17 Levothyroxine Sodium (Synthroid) 125 mcg BEFORE BREAKFAST PO Last administered on 01/25/19 05:53; Admin Dose 125 MCG; Start 01/17/19 at 18:17 Metoprolol Tartrate (Lopressor) 50 mg BID PO Last administered on 01/25/19 09:31; Admin Dose 50 MG; Start 01/17/19 at 18:17 Nitroglycerin (Nitroglycerin (Sl Tab) 0.4 Mg) 0.4 tab Q5M PRN SL CHEST PAIN; Start 01/17/19 at 18:17 Nystatin (Nystatin Powder) 1 applic BID TOP Last administered on 01/25/19 13:0 0; Admin Dose 1 APPLIC; Start 01/17/19 at 18:17 Pantoprazole (Protonix Tab) 40 mg DAILY@06 PO Last administered on 01/25/19 05:53; Admin Dose 40 MG; Start 01/17/19 at 18:17 IV Flush (NS 3 ml) 3 ml PER PROTOCOL IV ; Start 01/17/19 at 18:17 Terazosin HCl (Hytrin) 10 mg HS PO Last administered on 01/24/19 21:36; Admin Dose 10 MG; Start 01/17/19 at 18:17 Miscellaneous Information 1 ea NOTE XX ; Start 01/17/19 at 18:17 Glucose (Glutose) 15 gm Q15M PRN PO DECREASED GLUCOSE; Start 01/17/19 at 18:17 Glucose (Glutose) 22.5 gm Q15M PRN PO DECREASED GLUCOSE; Start 01/17/19 at 18:17 Dextrose (D50w Syringe) 25 ml Q15M PRN IV DECREASED GLUCOSE; Start 01/17/19 at 18:17 Dextrose (D50w Syringe) 50 ml Q15M PRN IV DECREASED GLUCOSE; Start 01/17/19 at 18:17 Glucagon (Glucagen) 1 mg Q15M PRN IM DECREASED GLUCOSE; Start 01/17/19 at 18:17 Glucose (Glutose) 15 gm Q15M PRN BUCCAL DECREASED GLUCOSE; Start 01/17/19 at 18:17 Multivitamins Therapeutic (Theragran) 1 tab DAILY PO Last administered on 01/25/19 09:30; Admin Dose 1 TAB; Start 01/17/19 at 18:17 Zinc Sulfate (Zinc Sulfate) 220 mg DAILY PO Last administered on 01/24/19 08:15; Admin Dose 220 MG; Start 01/17/19 at 18:17 Ascorbic Acid (Vitamin C) 250 mg DAILY PO Last administered on 01/25/19 09:30; Admin Dose 250 MG; Start 01/17/19 at 18:17 Albuterol/ Ipratropium (Duoneb) 3 ml Q6H RESP THERAPY HHN Last administered on 01/25/19 13:09; Admin Dose 3 ML; Start 01/17/19 at 18:17 Multi-Ingredient Ointment (Aquaphor Oint 52.5 Gm) 1 applic BID TOP Last administered on 01/25/19 12:59; Admin Dose 1 APPLIC; Start 01/17/19 at 18:17 Aspirin (Aspirin) 81 mg DAILY PO Last administered on 01/25/19 09:30; Admin Dose 81 MG; Start 01/17/19 at 18:17 Ferrous Sulfate (Ferrous Sulfate (Ec)) 325 mg WITH MEALS PO Last administered on 01/25/19 09:30; Admin Dose 325 MG; Start 01/17/19 at 18:17 Bisacodyl (Dulcolax Supp) 10 mg DAILY PRN [place] CONSTIPATION; Start 01/17/19 at 18:17 Zinc Acetate/ Diphenhydramine (Benadryl 2% Cr) 1 applic Q6H PRN TOP ITCHING Last administered on 01/24/19 21:30; Admin Dose 1 APPLIC; Start 01/19/19 at 16:37 Nystatin/ Triamcinolone Acetonide (Mycolog Cr) 1 applic BID TOP Last administered on 01/25/19 12:59; Admin Dose 1 APPLIC; Start 01/19/19 at 22:41 Epoetin Dae-epbx (RETACRIT(non-esrd)) 20,000 unit Mo@1700 SC Last administered on 01/20/19at 18:13; Admin Dose 20,000 UNIT; Start 01/20/19 at 17:00 Furosemide (Lasix) 20 mg DAILY IV Last administered on 01/25/19at 09:32; Admin Dose 20 MG; Start 01/21/19 at 09:00 IV Flush (NS 10 ml) 10 ml PRN PRN IV IV PROTOCOL; Start 01/20/19 at 14:30 Cyanocobalamin (Vitamin B12 Inj) 1,000 mcg Q7D IM ; Start 02/03/19 at 09:00 Cyanocobalamin (Vitamin B12 Inj) 1,000 mcg DAILY IM Last administered on 01/24/19at 08:17; Admin Dose 1,000 MCG; Start 01/21/19 at 09:00; Stop 01/27/19 at 09:00 MICHELLE FROST MD January 25, 2019 15:45
--- NOTE | 2019-01-25 15:55 | CONS ---
Assessment/Plan Assessment/Plan Hospital Course (Demo Recall) IMPRESSION: 1. Atrial fibrillation, currently rate controlled.-off systemic anticoagulation due to anemia. ON asa only due to anemia 2. Possible congestive heart failure by chest x-ray, which will be diastolic, acute on chronic by most recent echo with an EF of 60%. 3. Tricuspid regurgitation, moderate by most recent echo. 4. Acute on chronic renal failure-mild worsening 5. Possible pneumonia. 6. History of coronary artery disease, status post coronary artery bypass graft surgery. 7. Dyslipidemia. 8. Rheumatoid arthritis. 9. Groin cellulitis. 10. Anemia-worsening again today requiring transfusions PRBC's.Now post-op s/p endoscopy 11. Diabetes mellitus. 12. Sepsis 14. abdominal mass 15. Rash-all over body with skin chaffing at this time Recc: -Now on tele -serial ecg's -Continue BB as tolerated -s/p dose of IVP digoxin with improved HR's overall -Baby asa as tolerated only -Continue lasix but follow volume status closely -Continue statin -Currently off abx's/antifungals, f/u cx data -Ongoing GI eval of abd mass -Ongoing neuro eval of possible CVA/AMS with pnding MRI as possible and if unable will likely be followed with serial Head CT Consultation Date/Type/Reason Admit Date/Time Jan 17, 2019 at 15:58 Initial Consult Date 01/18/19 Type of Consult Cardiology Reason for Consultation CHF/AF Requesting Provider: IVAN AKHTAR MD Date/Time of Note DATE: 01/25/19 TIME: 15:50 Exam/Review of Systems Vital Signs Vitals Vital Signs Date Temp Pulse Resp B/P (MAP) Pulse Ox O2 O2 Flow FiO2 Time Delivery Rate 01/25/19 62 18 100 Nasal 2.0 13:09 Cannula 01/25/19 97.0 98/50 (66) 12:16 Intake and Output 01/24/19 01/24/19 01/25/19 1414:59 22:59 06:59 IntakeIntake Total 950 ml 1020 ml 500 ml OutputOutput Total 450 ml 1958 ml 380 ml BalanceBalance 500 ml -938 ml 120 ml Exam Exam Review of Systems: CONSTITUTIONAL: No fevers, chills. PULMONARY: No sob CARDIOVASCULAR: No chest pain/palpitations GASTROINTESTINAL: No nausea/vomiting. GENITOURINARY: No hematuria/dysuria. MUSCULOSKELETAL: No myagias/arthalgias. PSYCHIATRIC: The patient denies depression. NEUROLOGIC: confused Derm:skin breakdown/chaffing Constitutional: alert Psych: confusion Head: normocephalic ENMT: mucosa pink and moist Neck: supple, jvd (9 cm water) Respiratory: diminished breath sounds (at bases/B) Cardiovascular: irregular rhythm Gastrointestinal: soft, non-tender Musculoskeletal: muscle weakness (generalized) Extremities: edema (none) Skin: other (breakdown/chaffing all over body) Labs Result Diagram: 01/25/19 0549 01/25/19 0549 Results 24hrs Laboratory Tests Test 01/24/19 16:48 01/24/19 20:37 01/25/19 05:49 01/25/19 08:23 Bedside Glucose 142 146 116 White Blood Count 14.4 H Red Blood Count 2.60 L Hemoglobin 7.7 L Hematocrit 23.8 L Mean Corpuscular Volume 91.5 Mean Corpuscular 29.6 Hemoglobin Mean Corpuscular 32.4 Hemoglobin Concent Red Cell Distribution 17.4 H Width Platelet Count 242 Mean Platelet Volume 10.6 H Immature Granulocytes % 1.000 H Neutrophils % 84.8 H Lymphocytes % 7.9 L Monocytes % 5.8 Eosinophils % 0.3 Basophils % 0.2 Nucleated Red Blood 0.0 Cells % Immature Granulocytes # 0.150 H Neutrophils # 12.2 H Lymphocytes # 1.1 Monocytes # 0.8 Eosinophils # 0.1 Basophils # 0.0 Nucleated Red Blood 0.0 Cells # Sodium Level 137 Potassium Level 3.9 Chloride Level 104 Carbon Dioxide Level 28 Anion Gap 5 Blood Urea Nitrogen 36 H Creatinine 1.12 Est Glomerular Filtrat Rate mL/min Glucose Level 106 # Calcium Level 8.5 Test 01/25/19 12:09 Bedside Glucose 126 Medications Medications Current Medications Docusate Sodium (Colace) 100 mg BID PO Last administered on 01/24/19at 21:29; Admin Dose 100 MG; Start 01/17/19 at 18:17 Lactulose (Enulose) 20 gm DAILY PRN PO CONSTIPATION; Start 01/17/19 at 18:17 Acetaminophen (Tylenol Tab) 650 mg Q4H PRN PO PAIN Last administered on 01/23/19at 22:48; Admin Dose 650 MG; Start 01/17/19 at 18:17 Miscellaneous Information (Pending Santyl Order For Wound Care) This patient ramirez... PRN PRN XX WOUND CARE; Start 01/17/19 at 18:17 Diagnostic Test (Pha) (Accu-Chek) 1 ea AC MEALS AND BEDTIME XX Last administered on 01/25/19 12:10; Admin Dose 1 EA; Start 01/17/19 at 18:17 Diagnostic Test (Pha) (Accu-Chek) 1 ea 02 XX Last administered on 01/22/19 02: 00; Admin Dose 1 EA; Start 01/17/19 at 18:17 Albuterol/ Ipratropium (Duoneb) 3 ml Q2H RESP THERAPY PRN HHN SHORTNESS OF BREATH; Start 01/17/19 at 18:17 Atorvastatin Calcium (Lipitor) 40 mg QHS PO Last administered on 01/24/19 21:29; Admin Dose 40 MG; Start 01/17/19 at 18:17 Bisacodyl (Dulcolax) 10 mg BID PRN PO CONSTIPATION; Start 01/17/19 at 18:17 Folic Acid (Folic Acid) 1 mg DAILY PO Last administered on 01/25/19 09:30; Admin Dose 1 MG; Start 01/17/19 at 18:17 Insulin Aspart (Novolog Insulin Pen) NOVOLOG *MILD* ALGORITHM WITH MEALS BEDTIME SC Last administered on 01/24/19 16:55; Admin Dose 1 UNIT; Start 01/17/19 at 18:17 Latanoprost (Xalatan) 1 drop HS BOTH EYES Last administered on 01/23/19 21:14; Admin Dose 1 DROP; Start 01/17/19 at 18:17 Levothyroxine Sodium (Synthroid) 125 mcg BEFORE BREAKFAST PO Last administered on 01/25/19 05:53; Admin Dose 125 MCG; Start 01/17/19 at 18:17 Metoprolol Tartrate (Lopressor) 50 mg BID PO Last administered on 01/25/19 09:31; Admin Dose 50 MG; Start 01/17/19 at 18:17 Nitroglycerin (Nitroglycerin (Sl Tab) 0.4 Mg) 0.4 tab Q5M PRN SL CHEST PAIN; Start 01/17/19 at 18:17 Nystatin (Nystatin Powder) 1 applic BID TOP Last administered on 01/25/19 13:00; Admin Dose 1 APPLIC; Start 01/17/19 at 18:17 Pantoprazole (Protonix Tab) 40 mg DAILY@06 PO Last administered on 01/25/19 05:53; Admin Dose 40 MG; Start 01/17/19 at 18:17 IV Flush (NS 3 ml) 3 ml PER PROTOCOL IV ; Start 01/17/19 at 18:17 Terazosin HCl (Hytrin) 10 mg HS PO Last administered on 01/24/19 21:36; Admin Dose 10 MG; Start 01/17/19 at 18:17 Miscellaneous Information 1 ea NOTE XX ; Start 01/17/19 at 18:17 Glucose (Glutose) 15 gm Q15M PRN PO DECREASED GLUCOSE; Start 01/17/19 at 18:17 Glucose (Glutose) 22.5 gm Q15M PRN PO DECREASED GLUCOSE; Start 01/17/19 at 18:17 Dextrose (D50w Syringe) 25 ml Q15M PRN IV DECREASED GLUCOSE; Start 01/17/19 at 18:17 Dextrose (D50w Syringe) 50 ml Q15M PRN IV DECREASED GLUCOSE; Start 01/17/19 at 18:17 Glucagon (Glucagen) 1 mg Q15M PRN IM DECREASED GLUCOSE; Start 01/17/19 at 18:17 Glucose (Glutose) 15 gm Q15M PRN BUCCAL DECREASED GLUCOSE; Start 01/17/19 at 18:17 Multivitamins Therapeutic (Theragran) 1 tab DAILY PO Last administered on 01/25/19 09:30; Admin Dose 1 TAB; Start 01/17/19 at 18:17 Zinc Sulfate (Zinc Sulfate) 220 mg DAILY PO Last administered on 01/24/19 08:15; Admin Dose 220 MG; Start 01/17/19 at 18:17 Ascorbic Acid (Vitamin C) 250 mg DAILY PO Last administered on 01/25/19 09:30; Admin Dose 250 MG; Start 01/17/19 at 18:17 Albuterol/ Ipratropium (Duoneb) 3 ml Q6H RESP THERAPY HHN Last administered on 01/25/19 13:09; Admin Dose 3 ML; Start 01/17/19 at 18:17 Multi-Ingredient Ointment (Aquaphor Oint 52.5 Gm) 1 applic BID TOP Last administered on 01/25/19 12:59; Admin Dose 1 APPLIC; Start 01/17/19 at 18:17 Aspirin (Aspirin) 81 mg DAILY PO Last administered on 01/25/19 09:30; Admin Dose 81 MG; Start 01/17/19 at 18:17 Ferrous Sulfate (Ferrous Sulfate (Ec)) 325 mg WITH MEALS PO Last administered on 01/25/19 09:30; Admin Dose 325 MG; Start 01/17/19 at 18:17 Bisacodyl (Dulcolax Supp) 10 mg DAILY PRN [place] CONSTIPATION; Start 01/17/19 at 18:17 Zinc Acetate/ Diphenhydramine (Benadryl 2% Cr) 1 applic Q6H PRN TOP ITCHING Last administered on 01/24/19 21:30; Admin Dose 1 APPLIC; Start 01/19/19 at 16:37 Nystatin/ Triamcinolone Acetonide (Mycolog Cr) 1 applic BID TOP Last administered on 01/25/19 12:59; Admin Dose 1 APPLIC; Start 01/19/19 at 22:41 Epoetin Dae-epbx (RETACRIT(non-esrd)) 20,000 unit Mo@1700 SC Last administered on 01/20/19 18:13; Admin Dose 20,000 UNIT; Start 01/20/19 at 17:00 Furosemide (Lasix) 20 mg DAILY IV Last administered on 01/25/19 09:32; Admin Dose 20 MG; Start 01/21/19 at 09:00 IV Flush (NS 10 ml) 10 ml PRN PRN IV IV PROTOCOL; Start 01/20/19 at 14:30 Cyanocobalamin (Vitamin B12 Inj) 1,000 mcg Q7D IM ; Start 02/03/19 at 09:00 Cyanocobalamin (Vitamin B12 Inj) 1,000 mcg DAILY IM Last administered on 01/24/19 08:17; Admin Dose 1,000 MCG; Start 01/21/19 at 09:00; Stop 01/27/19 at 09:00 MARJORIE JAIN January 25, 2019 15:55
--- NOTE | 2019-01-25 16:07 | PN ---
Date/Time of Note Date/Time of Note DATE: 01/25/19 TIME: 16:07 Assessment/Plan VTE Prophylaxis Risk score (from [facility])>0 risk: 8 SCD applied (from [facility]): No SCD contraindicated: other Pharmacological prophylaxis: NA/contraindicated Pharm contraindication: anticoag not tolerated Lines/Catheters IV [facility] Type (from [facility] PICC Line Central line still needed: Yes Urinary Cath still in place: Yes Reason Cath still needed: urinary retention Assessment/Plan Hospital Course 1. Sepsis, WBC elevated , lactic acidosis 2. Severe anemia 3. Chronic renal failure likely secondary to sepsis, improved, normal creatinine 4. Hypertension. 5. Hyperlipidemia. 6. Hypothyroidism. 7. Normocytic normochromic chronic anemia with recent hemoglobin drop. 8. Bilateral groin cellulitis more likely associated with mateus, patches in groin and axilla bilaterally. skin peeling 9. History of rheumatoid arthritis with joint deformities. 10. Diabetes type 2. 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 Peripheral vascular disease. 13. Chronic a.fib 14. right arm edema 15. Neoplasm per CT abdomen. 4.3 cm cystic lesion along the pancreas body, enlarged since 10/10/2012 (previously 2.4 cm). 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 16. Possible allergic skin reaction 17. altered mental status delirium vs stroke, resolved Assessment/Plan - mental status normal - fu Neuro recs -on ASA, statin -WBC high, on IV antibiotics per ID no source yet though - iv caspofungin - neuro check -cw on Epogen per oncology -oncology consul dr Lorenzo aware:he said Ca 19-9 is negative indicating unlikely malignant. This may be a pseudocyst or a precancerous pancreatic lesion. It has been growing in size but patient is asymptomatic. EUS with biopsy is recommended and can either be done inpatient or outpatient setting. The patient at this time is unlikely a candidate for a Whipple surgery however. -skin care -transfuse hemoglobin less than 7 -IV Lasix -case management SNF Result Diagram: 01/25/19 0549 01/25/19 0549 Results 24hrs Laboratory Tests Test 01/24/19 16:48 01/24/19 20:37 01/25/19 05:49 01/25/19 08:23 Bedside Glucose 142 146 116 White Blood Count 14.4 H Red Blood Count 2.60 L Hemoglobin 7.7 L Hematocrit 23.8 L Mean Corpuscular Volume 91.5 Mean Corpuscular 29.6 Hemoglobin Mean Corpuscular 32.4 Hemoglobin Concent Red Cell Distribution 17.4 H Width Platelet Count 242 Mean Platelet Volume 10.6 H Immature Granulocytes % 1.000 H Neutrophils % 84.8 H Lymphocytes % 7.9 L Monocytes % 5.8 Eosinophils % 0.3 Basophils % 0.2 Nucleated Red Blood 0.0 Cells % Immature Granulocytes # 0.150 H Neutrophils # 12.2 H Lymphocytes # 1.1 Monocytes # 0.8 Eosinophils # 0.1 Basophils # 0.0 Nucleated Red Blood 0.0 Cells # Sodium Level 137 Potassium Level 3.9 Chloride Level 104 Carbon Dioxide Level 28 Anion Gap 5 Blood Urea Nitrogen 36 H Creatinine 1.12 Est Glomerular Filtrat Rate mL/min Glucose Level 106 # Calcium Level 8.5 Test 01/25/19 12:09 Bedside Glucose 126 Subjective 24 Hr Interval Summary Constitutional: no complaints Exam/Review of Systems Exam Vitals Vital Signs Date Temp Pulse Resp B/P (MAP) Pulse Ox O2 O2 Flow FiO2 Time Delivery Rate 01/25/19 97.0 83 20 106/55 100 Nasal 2.0 15:54 (72) Cannula Intake and Output 01/24/19 01/24/19 01/25/19 1515:00 23:00 07:00 IntakeIntake Total 700 ml 1020 ml 500 ml OutputOutput Total 1958 ml 380 ml BalanceBalance 700 ml -938 ml 120 ml Constitutional: alert, oriented Head: normocephalic Neck: supple Cardiovascular: regular rate and rhythm Gastrointestinal: soft Genitourinary - Male: other (rinaldi) Musculoskeletal: muscle weakness Skin: other (peeling) Results Results 24hrs Laboratory Tests Test 01/24/19 16:48 01/24/19 20:37 01/25/19 05:49 01/25/19 08:23 Bedside Glucose 142 146 116 White Blood Count 14.4 H Red Blood Count 2.60 L Hemoglobin 7.7 L Hematocrit 23.8 L Mean Corpuscular Volume 91.5 Mean Corpuscular 29.6 Hemoglobin Mean Corpuscular 32.4 Hemoglobin Concent Red Cell Distribution 17.4 H Width Platelet Count 242 Mean Platelet Volume 10.6 H Immature Granulocytes % 1.000 H Neutrophils % 84.8 H Lymphocytes % 7.9 L Monocytes % 5.8 Eosinophils % 0.3 Basophils % 0.2 Nucleated Red Blood 0.0 Cells % Immature Granulocytes # 0.150 H Neutrophils # 12.2 H Lymphocytes # 1.1 Monocytes # 0.8 Eosinophils # 0.1 Basophils # 0.0 Nucleated Red Blood 0.0 Cells # Sodium Level 137 Potassium Level 3.9 Chloride Level 104 Carbon Dioxide Level 28 Anion Gap 5 Blood Urea Nitrogen 36 H Creatinine 1.12 Est Glomerular Filtrat Rate mL/min Glucose Level 106 # Calcium Level 8.5 Test 01/25/19 12:09 Bedside Glucose 126 Medications Medication Current Medications Docusate Sodium (Colace) 100 mg BID PO Last administered on 01/24/19 21:29; Admin Dose 100 MG; Start 01/17/19 at 18:17 Lactulose (Enulose) 20 gm DAILY PRN PO CONSTIPATION; Start 01/17/19 at 18:17 Acetaminophen (Tylenol Tab) 650 mg Q4H PRN PO PAIN Last administered on 01/23/19 22:48; Admin Dose 650 MG; Start 01/17/19 at 18:17 [facility] This patient ramirez... PRN PRN XX WOUND CARE; Start 01/17/19 at 18:17 Diagnostic Test (Pha) (Accu-Chek) 1 ea AC MEALS AND BEDTIME XX Last administered on 01/25/19 12:10; Admin Dose 1 EA; Start 01/17/19 at 18:17 Diagnostic Test (Pha) (Accu-Chek) 1 ea 02 XX Last administered on 01/22/19 02:00; Admin Dose 1 EA; Start 01/17/19 at 18:17 Albuterol/ Ipratropium (Duoneb) 3 ml Q2H RESP THERAPY PRN HHN SHORTNESS OF BREATH; Start 01/17/19 at 18:17 Atorvastatin Calcium (Lipitor) 40 mg QHS PO Last administered on 01/24/19 21:29; Admin Dose 40 MG; Start 01/17/19 at 18:17 Bisacodyl (Dulcolax) 10 mg BID PRN PO CONSTIPATION; Start 01/17/19 at 18:17 Folic Acid (Folic Acid) 1 mg DAILY PO Last administered on 01/25/19 09:30; Admin Dose 1 MG; Start 01/17/19 at 18:17 Insulin Aspart (Novolog Insulin Pen) NOVOLOG *MILD* ALGORITHM WITH MEALS BEDTIME SC Last administered on 01/24/19 16:55; Admin Dose 1 UNIT; Start 01/17/19 at 18:17 Latanoprost (Xalatan) 1 drop HS BOTH EYES Last administered on 01/23/19 21:14; Admin Dose 1 DROP; Start 01/17/19 at 18:17 Levothyroxine Sodium (Synthroid) 125 mcg BEFORE BREAKFAST PO Last administered on 01/25/19 05:53; Admin Dose 125 MCG; Start 01/17/19 at 18:17 Metoprolol Tartrate (Lopressor) 50 mg BID PO Last administered on 01/25/19 09:31; Admin Dose 50 MG; Start 01/17/19 at 18:17 Nitroglycerin (Nitroglycerin (Sl Tab) 0.4 Mg) 0.4 tab Q5M PRN SL CHEST PAIN; Start 01/17/19 at 18:17 Nystatin (Nystatin Powder) 1 applic BID TOP Last administered on 01/25/19 13:00; Admin Dose 1 APPLIC; Start 01/17/19 at 18:17 Pantoprazole (Protonix Tab) 40 mg DAILY@06 PO Last administered on 01/25/19 05:53; Admin Dose 40 MG; Start 01/17/19 at 18:17 IV Flush (NS 3 ml) 3 ml PER PROTOCOL IV ; Start 01/17/19 at 18:17 Terazosin HCl (Hytrin) 10 mg HS PO Last administered on 01/24/19 21:36; Admin Dose 10 MG; Start 01/17/19 at 18:17 Miscellaneous Information 1 ea NOTE XX ; Start 01/17/19 at 18:17 Glucose (Glutose) 15 gm Q15M PRN PO DECREASED GLUCOSE; Start 01/17/19 at 18:17 Glucose (Glutose) 22.5 gm Q15M PRN PO DECREASED GLUCOSE; Start 01/17/19 at 18:17 Dextrose (D50w Syringe) 25 ml Q15M PRN IV DECREASED GLUCOSE; Start 01/17/19 at 18:17 Dextrose (D50w Syringe) 50 ml Q15M PRN IV DECREASED GLUCOSE; Start 01/17/19 at 18:17 Glucagon (Glucagen) 1 mg Q15M PRN IM DECREASED GLUCOSE; Start 01/17/19 at 18:17 Glucose (Glutose) 15 gm Q15M PRN BUCCAL DECREASED GLUCOSE; Start 01/17/19 at 18:17 Multivitamins Therapeutic (Theragran) 1 tab DAILY PO Last administered on 01/25/19 09:30; Admin Dose 1 TAB; Start 01/17/19 at 18:17 Zinc Sulfate (Zinc Sulfate) 220 mg DAILY PO Last administered on 01/24/19 08:15; Admin Dose 220 MG; Start 01/17/19 at 18:17 Ascorbic Acid (Vitamin C) 250 mg DAILY PO Last administered on 01/25/19 09:30; Admin Dose 250 MG; Start 01/17/19 at 18:17 Albuterol/ Ipratropium (Duoneb) 3 ml Q6H RESP THERAPY HHN Last administered on 01/25/19 13:09; Admin Dose 3 ML; Start 01/17/19 at 18:17 Multi-Ingredient Ointment (Aquaphor Oint 52.5 Gm) 1 applic BID TOP Last administered on 01/25/19 12:59; Admin Dose 1 APPLIC; Start 01/17/19 at 18:17 Aspirin (Aspirin) 81 mg DAILY PO Last administered on 01/25/19 09:30; Admin Dose 81 MG; Start 01/17/19 at 18:17 Ferrous Sulfate (Ferrous Sulfate (Ec)) 325 mg WITH MEALS PO Last administered on 01/25/19 09:30; Admin Dose 325 MG; Start 01/17/19 at 18:17 Bisacodyl (Dulcolax Supp) 10 mg DAILY PRN [place] CONSTIPATION; Start 01/17/19 at 18:17 Zinc Acetate/ Diphenhydramine (Benadryl 2% Cr) 1 applic Q6H PRN TOP ITCHING Last administered on 01/24/19 21:30; Admin Dose 1 APPLIC; Start 01/19/19 at 16:37 Nystatin/ Triamcinolone Acetonide (Mycolog Cr) 1 applic BID TOP Last administ ered on 01/25/19 12:59; Admin Dose 1 APPLIC; Start 01/19/19 at 22:41 Epoetin Dae-epbx (RETACRIT(non-esrd)) 20,000 unit Mo@1700 SC Last administered on 01/20/19at 18:13; Admin Dose 20,000 UNIT; Start 01/20/19 at 17:00 Furosemide (Lasix) 20 mg DAILY IV Last administered on 01/25/19at 09:32; Admin Dose 20 MG; Start 01/21/19 at 09:00 IV Flush (NS 10 ml) 10 ml PRN PRN IV IV PROTOCOL; Start 01/20/19 at 14:30 Cyanocobalamin (Vitamin B12 Inj) 1,000 mcg Q7D IM ; Start 02/03/19 at 09:00 Cyanocobalamin (Vitamin B12 Inj) 1,000 mcg DAILY IM Last administered on 01/24/19at 08:17; Admin Dose 1,000 MCG; Start 01/21/19 at 09:00; Stop 01/27/19 at 09:00 COOPER CARO January 25, 2019 16:07
--- NOTE | 2019-01-25 16:15 | CONS ---
Assessment/Plan Assessment/Plan Assessment/Plan (Daily) 88 yo male with multiple medical problems including DM, CRF, RA, PVD and chronic afib on Eliquis who presented to [facility] 01/05/19 with severe normocytic anemia and Hg ~7. 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 # Anemia-normocytic Hgb 7.7 -Multifactorial at this time due to iron deficiency, vitamin b12 deficiency and also likely anemia of chronic kidney disease and inflammation. Elevated Methylmalonic acid level noted -Patient still has low iron level even though ferritin is elevated. Ferritin likely elevated due to acute phase reactant. -Instead po iron may need IV iron as patient has severe atrophic gastritis which may be causing absorption issues. -continue vitamin b12 weekly as vitamin b12 was low normal and methylmalonic acid was elevated. Continue folate as well. -No evidence of hemolysis at this time. -Transfuse to keep Hgb > 7. -will continue Procrit 91380 units weekly at this time # Pancreatic cystic mass -Ca 19-9 is negative indicating unlikely malignant. -This may be a pseudocyst or a precancerous pancreatic lesion. -It has been growing in size but patient is asymptomatic. - EUS with biopsy is recommended and can either be done inpatient or outpatient setting. -The patient at this time is unlikely a candidate for a Whipple surgery however. Patient is seen in collaboration with Dr King. Dw staff Consultation Date/Type/Reason Admit Date/Time Jan 17, 2019 at 15:58 Initial Consult Date 01/18/19 Type of Consult ONCOLOGY Reason for Consultation PANCREATIC MASS Requesting Provider: IVAN AKHTAR MD Date/Time of Note DATE: 01/25/19 TIME: 16:13 24 HR Interval Summary Free Text/Dictation confused; seems comfortable no new issues reported by staff Constitutional: requiring O2 Exam/Review of Systems Exam Vitals Vital Signs Date Temp Pulse Resp B/P (MAP) Pulse Ox O2 O2 Flow FiO2 Time Delivery Rate 01/25/19 97.0 83 20 106/55 100 Nasal 2.0 15:54 (72) Cannula Intake and Output 01/24/19 01/24/19 01/25/19 1515:00 23:00 07:00 IntakeIntake Total 700 ml 1020 ml 500 ml OutputOutput Total 1958 ml 380 ml BalanceBalance 700 ml -938 ml 120 ml Constitutional: alert, well developed Psych: nl mood/affect Head: atraumatic Eyes: nl lids, nl sclera ENMT: nl external ears & nose Neck: non-tender Respiratory: clear to auscultation Cardiovascular: nl pulses, other (S1S2) Gastrointestinal: soft, non-tender Musculoskeletal: muscle weakness Extremities: normal pulses Neurological: confused, other (alert; does not follow commands) Skin: other (generelized peeling skin ) Results Result Diagram: 01/25/1949 01/25/19 0549 Results 24hrs Laboratory Tests Test 01/24/19 16:48 01/24/19 20:37 01/25/19 05:49 01/25/19 08:23 Bedside Glucose 142 146 116 White Blood Count 14.4 H Red Blood Count 2.60 L Hemoglobin 7.7 L Hematocrit 23.8 L Mean Corpuscular Volume 91.5 Mean Corpuscular 29.6 Hemoglobin Mean Corpuscular 32.4 Hemoglobin Concent Red Cell Distribution 17.4 H Width Platelet Count 242 Mean Platelet Volume 10.6 H Immature Granulocytes % 1.000 H Neutrophils % 84.8 H Lymphocytes % 7.9 L Monocytes % 5.8 Eosinophils % 0.3 Basophils % 0.2 Nucleated Red Blood 0.0 Cells % Immature Granulocytes # 0.150 H Neutrophils # 12.2 H Lymphocytes # 1.1 Monocytes # 0.8 Eosinophils # 0.1 Basophils # 0.0 Nucleated Red Blood 0.0 Cells # Sodium Level 137 Potassium Level 3.9 Chloride Level 104 Carbon Dioxide Level 28 Anion Gap 5 Blood Urea Nitrogen 36 H Creatinine 1.12 Est Glomerular Filtrat Rate mL/min Glucose Level 106 # Calcium Level 8.5 Test 01/25/19 12:09 Bedside Glucose 126 Medications Medication Current Medications Docusate Sodium (Colace) 100 mg BID PO Last administered on 01/24/19at 21:29; Admin Dose 100 MG; Start 01/17/19 at 18:17 Lactulose (Enulose) 20 gm DAILY PRN PO CONSTIPATION; Start 01/17/19 at 18:17 Acetaminophen (Tylenol Tab) 650 mg Q4H PRN PO PAIN Last administered on 01/23/19at 22:48; Admin Dose 650 MG; Start 01/17/19 at 18:17 Miscellaneous Information (Pending [facility]) This patient ramirez... PRN PRN XX WOUND CARE; Start 01/17/19 at 18:17 Diagnostic Test (Pha) (Accu-Chek) 1 ea AC MEALS AND BEDTIME XX Last administered on 01/25/19 12:10; Admin Dose 1 EA; Start 01/17/19 at 18:17 Diagnostic Test (Pha) (Accu-Chek) 1 ea 02 XX Last administered on 01/22/19 02:00; Admin Dose 1 EA; Start 01/17/19 at 18:17 Albuterol/ Ipratropium (Duoneb) 3 ml Q2H RESP THERAPY PRN HHN SHORTNESS OF BREATH; Start 01/17/19 at 18:17 Atorvastatin Calcium (Lipitor) 40 mg QHS PO Last administered on 01/24/19 21:29; Admin Dose 40 MG; Start 01/17/19 at 18:17 Bisacodyl (Dulcolax) 10 mg BID PRN PO CONSTIPATION; Start 01/17/19 at 18:17 Folic Acid (Folic Acid) 1 mg DAILY PO Last administered on 01/25/19 09:30; Admin Dose 1 MG; Start 01/17/19 at 18:17 Insulin Aspart (Novolog Insulin Pen) NOVOLOG *MILD* ALGORITHM WITH MEALS BEDTIME SC Last administered on 01/24/19 16:55; Admin Dose 1 UNIT; Start 01/17/19 at 18:17 Latanoprost (Xalatan) 1 drop HS BOTH EYES Last administered on 01/23/19 21:14; Admin Dose 1 DROP; Start 01/17/19 at 18:17 Levothyroxine Sodium (Synthroid) 125 mcg BEFORE BREAKFAST PO Last administered on 01/25/19 05:53; Admin Dose 125 MCG; Start 01/17/19 at 18:17 Metoprolol Tartrate (Lopressor) 50 mg BID PO Last administered on 01/25/19 0 9:31; Admin Dose 50 MG; Start 01/17/19 at 18:17 Nitroglycerin (Nitroglycerin (Sl Tab) 0.4 Mg) 0.4 tab Q5M PRN SL CHEST PAIN; Start 01/17/19 at 18:17 Nystatin (Nystatin Powder) 1 applic BID TOP Last administered on 01/25/19 13:00; Admin Dose 1 APPLIC; Start 01/17/19 at 18:17 Pantoprazole (Protonix Tab) 40 mg DAILY@06 PO Last administered on 01/25/19 05:53; Admin Dose 40 MG; Start 01/17/19 at 18:17 IV Flush (NS 3 ml) 3 ml PER PROTOCOL IV ; Start 01/17/19 at 18:17 Terazosin HCl (Hytrin) 10 mg HS PO Last administered on 01/24/19 21:36; Admin Dose 10 MG; Start 01/17/19 at 18:17 Miscellaneous Information 1 ea NOTE XX ; Start 01/17/19 at 18:17 Glucose (Glutose) 15 gm Q15M PRN PO DECREASED GLUCOSE; Start 01/17/19 at 18:17 Glucose (Glutose) 22.5 gm Q15M PRN PO DECREASED GLUCOSE; Start 01/17/19 at 18:17 Dextrose (D50w Syringe) 25 ml Q15M PRN IV DECREASED GLUCOSE; Start 01/17/19 at 18:17 Dextrose (D50w Syringe) 50 ml Q15M PRN IV DECREASED GLUCOSE; Start 01/17/19 at 18:17 Glucagon (Glucagen) 1 mg Q15M PRN IM DECREASED GLUCOSE; Start 01/17/19 at 18:17 Glucose (Glutose) 15 gm Q15M PRN BUCCAL DECREASED GLUCOSE; Start 01/17/19 at 18:17 Multivitamins Therapeutic (Theragran) 1 tab DAILY PO Last administered on 01/25/19 09:30; Admin Dose 1 TAB; Start 01/17/19 at 18:17 Zinc Sulfate (Zinc Sulfate) 220 mg DAILY PO Last administered on 01/24/19 08:15; Admin Dose 220 MG; Start 01/17/19 at 18:17 Ascorbic Acid (Vitamin C) 250 mg DAILY PO Last administered on 01/25/19 09:30; Admin Dose 250 MG; Start 01/17/19 at 18:17 Albuterol/ Ipratropium (Duoneb) 3 ml Q6H RESP THERAPY HHN Last administered on 01/25/19 13:09; Admin Dose 3 ML; Start 01/17/19 at 18:17 Multi-Ingredient Ointment (Aquaphor Oint 52.5 Gm) 1 applic BID TOP Last administered on 01/25/19 12:59; Admin Dose 1 APPLIC; Start 01/17/19 at 18:17 Aspirin (Aspirin) 81 mg DAILY PO Last administered on 01/25/19 09:30; Admin Dose 81 MG; Start 01/17/19 at 18:17 Ferrous Sulfate (Ferrous Sulfate (Ec)) 325 mg WITH MEALS PO Last administered on 01/25/19 09:30; Admin Dose 325 MG; Start 01/17/19 at 18:17 Bisacodyl (Dulcolax Supp) [address] CONSTIPATION; Start 01/17/19 at 18:17 Zinc Acetate/ Diphenhydramine (Benadryl 2% Cr) 1 applic Q6H PRN TOP ITCHING Last administered on 01/24/19 21:30; Admin Dose 1 APPLIC; Start 01/19/19 at 16:37 Nystatin/ Triamcinolone Acetonide (Mycolog Cr) 1 applic BID TOP Last administered on 01/25/19 12:59; Admin Dose 1 APPLIC; Start 01/19/19 at 22:41 Epoetin Dae-epbx (RETACRIT(non-esrd)) 20,000 unit Mo@1700 SC Last administered on 01/20/19 18:13; Admin Dose 20,000 UNIT; Start 01/20/19 at 17:00 Furosemide (Lasix) 20 mg DAILY IV Last administered on 01/25/19 09:32; Admin Dose 20 MG; Start 01/21/19 at 09:00 IV Flush (NS 10 ml) 10 ml PRN PRN IV IV PROTOCOL; Start 01/20/19 at 14:30 Cyanocobalamin (Vitamin B12 Inj) 1,000 mcg Q7D IM ; Start 02/03/19 at 09:00 Cyanocobalamin (Vitamin B12 Inj) 1,000 mcg DAILY IM Last administered on 01/24/19 08:17; Admin Dose 1,000 MCG; Start 01/21/19 at 09:00; Stop 01/27/19 at 09:00 JESI GATES January 25, 2019 16:15
[2019-01-25] MEDS: TERAZOSIN 5 MG CAP PO SCH (20:29)
[2019-01-25] MEDS: ATORVASTATIN 40 MG TAB PO SCH (20:30)
[2019-01-25] MEDS: LATANOPROST 0.005% 2.5 ML OPH BOTH EYES SCH (20:31)
[2019-01-25] MEDS: DIPHENHYDRAMINE 2%/ZINC 28.4 GM CR TOP PRN (20:35)
[2019-01-26] VITALS (11 sets, daily range): BP systolic 100–123; BP diastolic 50–78; PULSE 66–95; RESP 18–20
[2019-01-26] MEDS: ALBUTEROL/IPRATROPIUM (NEB) 3 ML AMP HHN SCH ×4 (01:12→19:29)
[2019-01-26] MEDS: ACCU-CHEK XX SCH ×5 (02:00→20:36)
[2019-01-26] MEDS: LEVOTHYROXINE 125 MCG TAB PO SCH (06:07)
[2019-01-26] MEDS: PANTOPRAZOLE (EC) 40 MG TAB PO SCH (06:07)
[2019-01-26] MEDS: INSULIN ASPART [NOVOLOG] 3 ML PEN SC SCH ×4 (07:52→20:38)
[2019-01-26] MEDS: FOLIC ACID 1 MG TAB PO SCH (07:52)
[2019-01-26] MEDS: ASPIRIN 81 MG TAB PO SCH (07:52)
[2019-01-26] MEDS: ZINC SULFATE 220 MG CAP PO SCH (07:52)
[2019-01-26] MEDS: DOCUSATE SODIUM 100 MG CAP PO SCH ×2 (07:52→20:33)
[2019-01-26] MEDS: MULTIVITAMINS THERAPEUTIC TAB PO SCH (07:53)
[2019-01-26] MEDS: METOPROLOL 50 MG TAB PO SCH (07:53)
[2019-01-26] MEDS: ASCORBIC ACID 250 MG TAB PO SCH (07:53)
[2019-01-26] MEDS: FUROSEMIDE 20 MG INJ IV SCH (07:53)
[2019-01-26] MEDS: FERROUS SULFATE (EC) 325 MG TAB PO SCH ×3 (07:53→16:54)
[2019-01-26] MEDS: AQUAPHOR 52.5 GM OINT TOP SCH ×2 (07:54→20:37)
[2019-01-26] MEDS: NYSTATIN 30 GM POWDER BTL TOP SCH ×2 (07:54→20:36)
[2019-01-26] MEDS: DIPHENHYDRAMINE 2%/ZINC 28.4 GM CR TOP PRN (07:54)
[2019-01-26] MEDS: BALSAM PERU/CASTOR OIL 60 GM TUBE TOP SCH ×2 (07:54→20:38)
[2019-01-26] MEDS: NYSTATIN/TRIAMCINOLONE 15 GM CR TOP SCH ×2 (07:55→20:36)
[2019-01-26] MEDS: CYANOCOBALAMIN 1000 MCG INJ IM SCH (08:44)
--- NOTE | 2019-01-26 11:41 | CONS ---
Consultation Date/Type/Reason Admit Date/Time Jan 17, 2019 at 15:58 Initial Consult Date SUBJECTIVE: PT is awake, alert, afebrile. Resting in bed. VS: stable T: 97.0 LABS: Reviewed. Microbiology: blood cultures repeated on January 17 grew coag negative staph suspicious of onset urine culture has been negative Antimicrobials: s/p Vancomycin, Invanz Physical examination: GEN: Obese well-developed chronically ill-appearing -Turkmen man, who is awake in no distress. HENT: Head atraumatic normocephalic, sclera nonicteric. Neck is supple PULM: chest rise symmetrical breath, sounds diminished bases. Heart: S1-S2. Abdomen obese soft bowel sounds present extremities without cyanosis, bilateral edema Assessment: 1. Systemic inflammatory response syndrome with ongoing leukocytosis 2. Status post pneumonia 3. Coronary artery disease/history of CABG 4. Advanced rheumatoid arthritis 5. Chronic atrial fibrillation 6. Diabetes 7. BPH 8. Coag negative staph bacteremia consistent with contaminant 9. Acute on chronic anemia===> s/p EGD/colonoscopy 01/09/19 10. Status post right epididymitis 11. Pancreatic lesion per CT, unlikely neoplasm per oncology notes Plan: Pt remains to be stable. Will continue observing off of abx, reculture prn Requesting Provider: IVAN AKHTAR MD Date/Time of Note DATE: 01/26/19 TIME: 11:36 Exam/Review of Systems Exam Vitals Vital Signs Date Temp Pulse Resp B/P (MAP) Pulse Ox O2 O2 Flow FiO2 Time Delivery Rate 01/26/19 81 08:12 01/26/19 2.0 08:05 01/26/19 20 98 Nasal 08:05 Cannula 01/26/19 97.0 100/50 07:30 (67) Intake and Output 01/25/19 01/25/19 01/26/19 1515:00 23:00 07:00 IntakeIntake Total 250 ml OutputOutput Total 400 ml BalanceBalance -150 ml Results Result Diagram: 01/25/19 0549 01/26/19 0553 Results 24hrs Laboratory Tests Test 01/25/19 12:09 01/25/19 17:21 01/25/19 21:12 01/26/19 05:53 Bedside Glucose 126 118 121 Sodium Level 137 Potassium Level 4.3 Chloride Level 103 Carbon Dioxide Level 27 Anion Gap 7 Blood Urea Nitrogen 39 H Creatinine 1.03 Est Glomerular Filtrat Rate mL/min Glucose Level 92 Calcium Level 8.4 Test 01/26/19 07:51 Bedside Glucose 101 Medications Medication Current Medications Docusate Sodium (Colace) 100 mg BID PO Last administered on 01/26/19 07:52; Admin Dose 100 MG; Start 01/17/19 at 18:17 Lactulose (Enulose) 20 gm DAILY PRN PO CONSTIPATION; Start 01/17/19 at 18:17 Acetaminophen (Tylenol Tab) 650 mg Q4H PRN PO PAIN Last administered on 01/23/19 22:48; Admin Dose 650 MG; Start 01/17/19 at 18:17 Miscellaneous Information (Pending [facility] Order For Wound Care) This patient ramirez... PRN PRN XX WOUND CARE; Start 01/17/19 at 18:17 Diagnostic Test (Pha) (Accu-Chek) 1 ea AC MEALS AND BEDTIME XX Last administered on 01/25/19 17:23; Admin Dose 1 EA; Start 01/17/19 at 18:17 Diagnostic Test (Pha) (Accu-Chek) 1 ea 02 XX Last administered on 01/22/19 02:00; Admin Dose 1 EA; Start 01/17/19 at 18:17 Albuterol/ Ipratropium (Duoneb) 3 ml Q2H RESP THERAPY PRN HHN SHORTNESS OF BREATH; Start 01/17/19 at 18:17 Atorvastatin Calcium (Lipitor) 40 mg QHS PO Last administered on 01/25/19 20:30; Admin Dose 40 MG; Start 01/17/19 at 18:17 Bisacodyl (Dulcolax) 10 mg BID PRN PO CONSTIPATION; Start 01/17/19 at 18:17 Folic Acid (Folic Acid) 1 mg DAILY PO Last administered on 01/26/19 07:52; Admin Dose 1 MG; Start 01/17/19 at 18:17 Insulin Aspart (Novolog Insulin Pen) NOVOLOG *MILD* ALGORITHM WITH MEALS BEDTIME SC Last administered on 01/24/19 16:55; Admin Dose 1 UNIT; Start 01/17/19 at 18:17 Latanoprost (Xalatan) 1 drop HS BOTH EYES Last administered on 01/25/19 20:31; Admin Dose 1 DROP; Start 01/17/19 at 18:17 Levothyroxine Sodium (Synthroid) 125 mcg BEFORE BREAKFAST PO Last administered on 01/26/19 06:07; Admin Dose 125 MCG; Start 01/17/19 at 18:17 Metoprolol Tartrate (Lopressor) 50 mg BID PO Last administered on 01/25/19at 20:30; Admin Dose 50 MG; Start 01/17/19 at 18:17 Nitroglycerin (Nitroglycerin (Sl Tab) 0.4 Mg) 0.4 tab Q5M PRN SL CHEST PAIN; Start 01/17/19 at 18:17 Nystatin (Nystatin Powder) 1 applic BID TOP Last administered on 01/26/19 07:54; Admin Dose 1 APPLIC; Start 01/17/19 at 18:17 Pantoprazole (Protonix Tab) 40 mg DAILY@06 PO Last administered on 01/26/19 06:07; Admin Dose 40 MG; Start 01/17/19 at 18:17 IV Flush (NS 3 ml) 3 ml PER PROTOCOL IV ; Start 01/17/19 at 18:17 Terazosin HCl (Hytrin) 10 mg HS PO Last administered on 01/25/19 20:29; Admin Dose 10 MG; Start 01/17/19 at 18:17 Miscellaneous Information 1 ea NOTE XX ; Start 01/17/19 at 18:17 Glucose (Glutose) 15 gm Q15M PRN PO DECREASED GLUCOSE; Start 01/17/19 at 18:17 Glucose (Glutose) 22.5 gm Q15M PRN PO DECREASED GLUCOSE; Start 01/17/19 at 18:17 Dextrose (D50w Syringe) 25 ml Q15M PRN IV DECREASED GLUCOSE; Start 01/17/19 at 18:17 Dextrose (D50w Syringe) 50 ml Q15M PRN IV DECREASED GLUCOSE; Start 01/17/19 at 18:17 Glucagon (Glucagen) 1 mg Q15M PRN IM DECREASED GLUCOSE; Start 01/17/19 at 18:17 Glucose (Glutose) 15 gm Q15M PRN BUCCAL DECREASED GLUCOSE; Start 01/17/19 at 18:17 Multivitamins Therapeutic (Theragran) 1 tab DAILY PO Last administered on 01/26/19at 07:53; Admin Dose 1 TAB; Start 01/17/19 at 18:17 Zinc Sulfate (Zinc Sulfate) 220 mg DAILY PO Last administered on 01/26/19 07:52; Admin Dose 220 MG; Start 01/17/19 at 18:17 Ascorbic Acid (Vitamin C) 250 mg DAILY PO Last administered on 01/26/19 07:53; Admin Dose 250 MG; Start 01/17/19 at 18:17 Albuterol/ Ipratropium (Duoneb) 3 ml Q6H RESP THERAPY HHN Last administered on 01/26/19 08:04; Admin Dose 3 ML; Start 01/17/19 at 18:17 Multi-Ingredient Ointment (Aquaphor Oint 52.5 Gm) 1 applic BID TOP Last administered on 01/26/19 07:54; Admin Dose 1 APPLIC; Start 01/17/19 at 18:17 Aspirin (Aspirin) 81 mg DAILY PO Last administered on 01/26/19 07:52; Admin Dose 81 MG; Start 01/17/19 at 18:17 Ferrous Sulfate (Ferrous Sulfate (Ec)) 325 mg WITH MEALS PO Last administered on 01/26/19 07:53; Admin Dose 325 MG; Start 01/17/19 at 18:17 Bisacodyl (Dulcolax Supp) 10 mg DAILY PRN SC CONSTIPATION; Start 01/17/19 at 18:17 Zinc Acetate/ Diphenhydramine (Benadryl 2% Cr) 1 applic Q6H PRN TOP ITCHING Last administered on 01/26/19 07:54; Admin Dose 1 APPLIC; Start 01/19/19 at 16:37 Nystatin/ Triamcinolone Acetonide (Mycolog Cr) 1 applic BID TOP Last administered on 01/26/19 07:55; Admin Dose 1 APPLIC; Start 01/19/19 at 22:41 Epoetin Dae-epbx (RETACRIT(non-esrd)) 20,000 unit Mo@1700 SC Last administered on 01/20/19 18:13; Admin Dose 20,000 UNIT; Start 01/20/19 at 17:00 Furosemide (Lasix) 20 mg DAILY IV Last administered on 01/26/19 07:53; Admin Dose 20 MG; Start 01/21/19 at 09:00 IV Flush (NS 10 ml) 10 ml PRN PRN IV IV PROTOCOL; Start 01/20/19 at 14:30 Cyanocobalamin (Vitamin B12 Inj) 1,000 mcg Q7D IM ; Start 02/03/19 at 09:00 Cyanocobalamin (Vitamin B12 Inj) 1,000 mcg DAILY IM Last administered on 01/24/19at 08:17; Admin Dose 1,000 MCG; Start 01/21/19 at 09:00; Stop 01/27/19 at 09:00 LIYA SEGUNDO January 26, 2019 11:41
--- NOTE | 2019-01-26 12:37 | CONS ---
Assessment/Plan Assessment/Plan Assessment/Plan (Daily) 88 yo male with multiple medical problems including DM, CRF, RA, PVD and chronic afib on Eliquis who presented to [facility] 01/[facility]/19 with severe normocytic anemia and Hg ~7. 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 # Anemia-normocytic- Hgb 7.7 today -Multifactorial at this time due to iron deficiency, vitamin b12 deficiency and also likely anemia of chronic kidney disease and inflammation. Elevated Methylmalonic acid level noted -Patient still has low iron level even though ferritin is elevated. Ferritin likely elevated due to acute phase reactant. -Instead po iron may need IV iron as patient has severe atrophic gastritis which may be causing absorption issues. -continue vitamin b12 weekly as vitamin b12 was low normal and methylmalonic acid was elevated. Continue folate as well. -No evidence of hemolysis at this time. -Transfuse to keep Hgb > 7. -will continue procrit 14861 units weekly at this time # Pancreatic cystic mass -Ca 19-9 is negative indicating unlikely malignant. -This may be a pseudocyst or a precancerous pancreatic lesion. -It has been growing in size but patient is asymptomatic. - EUS with biopsy is recommended and can either be done inpatient or outpatient setting. -The patient at this time is unlikely a candidate for a Whipple surgery however. # Hypotension # Diabetes Consultation Date/Type/Reason Admit Date/Time Jan 17, 2019 at 15:58 Initial Consult Date 01/18/19 Type of Consult oncology Reason for Consultation Anemia/ Pancreatic mass Requesting Provider: IVAN AKHTAR MD Date/Time of Note DATE: 01/26/19 TIME: 12:34 24 HR Interval Summary Free Text/Dictation confused; agitated at times poor po intake dw staff Constitutional: requiring O2 Exam/Review of Systems Exam Vitals Vital Signs Date Temp Pulse Resp B/P (MAP) Pulse Ox O2 O2 Flow FiO2 Time Delivery Rate 01/26/19 94 12:33 01/26/19 97.0 20 102/50 98 Nasal 11:57 (67) Cannula 01/26/19 2.0 08:05 Intake and Output 01/25/19 01/25/19 01/26/19 1414:59 22:59 06:59 IntakeIntake Total 250 ml OutputOutput Total 400 ml BalanceBalance -150 ml Constitutional: alert, well developed Psych: nl mood/affect Head: atraumatic Eyes: nl lids, nl sclera ENMT: nl external ears & nose Neck: non-tender Respiratory: clear to auscultation Cardiovascular: nl pulses, other (s1s2) Gastrointestinal: soft Musculoskeletal: muscle weakness Extremities: normal pulses Neurological: confused, other (alert) Skin: other (generelized skin peeing) Results Result Diagram: 01/25/19 0549 01/26/19 0553 Results 24hrs Laboratory Tests Test 01/25/19 17:21 01/25/19 21:12 01/26/19 05:53 01/26/19 07:51 Bedside Glucose 118 121 101 Sodium Level 137 Potassium Level 4.3 Chloride Level 103 Carbon Dioxide Level 27 Anion Gap 7 Blood Urea Nitrogen 39 H Creatinine 1.03 Est Glomerular Filtrat Rate mL/min Glucose Level 92 Calcium Level 8.4 Test 01/26/19 11:55 Bedside Glucose 88 Medications Medication Current Medications Docusate Sodium (Colace) 100 mg BID PO Last administered on 01/26/19at 07:52; Admin Dose 100 MG; Start 01/17/19 at 18:17 Lactulose (Enulose) 20 gm DAILY PRN PO CONSTIPATION; Start 01/17/19 at 18:17 Acetaminophen (Tylenol Tab) 650 mg Q4H PRN PO PAIN Last administered on 01/23/19at 22:48; Admin Dose 650 MG; Start 01/17/19 at 18:17 Miscellaneous Information (Pending [facility] Order For Wound Care) This patient ramirez... PRN PRN XX WOUND CARE; Start 01/17/19 at 18:17 Diagnostic Test (Pha) (Accu-Chek) 1 ea AC MEALS AND BEDTIME XX Last administered on 01/25/19at 17:23; Admin Dose 1 EA; Start 01/17/19 at 18:17 Diagnostic Test (Pha) (Accu-Chek) 1 ea 02 XX Last administered on 01/22/19at 02:00; Admin Dose 1 EA; Start 01/17/19 at 18:17 Albuterol/ Ipratropium (Duoneb) 3 ml Q2H RESP THERAPY PRN HHN SHORTNESS OF BREATH; Start 01/17/19 at 18:17 Atorvastatin Calcium (Lipitor) 40 mg QHS PO Last administered on 01/25/19 20:30; Admin Dose 40 MG; Start 01/17/19 at 18:17 Bisacodyl (Dulcolax) 10 mg BID PRN PO CONSTIPATION; Start 01/17/19 at 18:17 Folic Acid (Folic Acid) 1 mg DAILY PO Last administered on 01/26/19 07:52; Admin Dose 1 MG; Start 01/17/19 at 18:17 Insulin Aspart (Novolog Insulin Pen) NOVOLOG *MILD* ALGORITHM WITH MEALS BEDTIME SC Last administered on 01/24/19 16:55; Admin Dose 1 UNIT; Start 01/17/19 at 18:17 Latanoprost (Xalatan) 1 drop HS BOTH EYES Last administered on 01/25/19 20:31; Admin Dose 1 DROP; Start 01/17/19 at 18:17 Levothyroxine Sodium (Synthroid) 125 mcg BEFORE BREAKFAST PO Last administered on 01/26/19 06:07; Admin Dose 125 MCG; Start 01/17/19 at 18:17 Metoprolol Tartrate (Lopressor) 50 mg BID PO Last administered on 01/25/19 20:30; Admin Dose 50 MG; Start 01/17/19 at 18:17 Nitroglycerin (Nitroglycerin (Sl Tab) 0.4 Mg) 0.4 tab Q5M PRN SL CHEST PAIN; Start 01/17/19 at 18:17 Nystatin (Nystatin Powder) 1 applic BID TOP Last administered on 01/26/19 07:54; Admin Dose 1 APPLIC; Start 01/17/19 at 18:17 Pantoprazole (Protonix Tab) 40 mg DAILY@06 PO Last administered on 01/26/19 06:07; Admin Dose 40 MG; Start 01/17/19 at 18:17 IV Flush (NS 3 ml) 3 ml PER PROTOCOL IV ; Start 01/17/19 at 18:17 Terazosin HCl (Hytrin) 10 mg HS PO Last administered on 01/25/19 20:29; Admin Dose 10 MG; Start 01/17/19 at 18:17 Miscellaneous Information 1 ea NOTE XX ; Start 01/17/19 at 18:17 Glucose (Glutose) 15 gm Q15M PRN PO DECREASED GLUCOSE; Start 01/17/19 at 18:17 Glucose (Glutose) 22.5 gm Q15M PRN PO DECREASED GLUCOSE; Start 01/17/19 at 18:17 Dextrose (D50w Syringe) 25 ml Q15M PRN IV DECREASED GLUCOSE; Start 01/17/19 at 18:17 Dextrose (D50w Syringe) 50 ml Q15M PRN IV DECREASED GLUCOSE; Start 01/17/19 at 18:17 Glucagon (Glucagen) 1 mg Q15M PRN IM DECREASED GLUCOSE; Start 01/17/19 at 18:17 Glucose (Glutose) 15 gm Q15M PRN BUCCAL DECREASED GLUCOSE; Start 01/17/19 at 18:17 Multivitamins Therapeutic (Theragran) 1 tab DAILY PO Last administered on 01/26/19 07:53; Admin Dose 1 TAB; Start 01/17/19 at 18:17 Zinc Sulfate (Zinc Sulfate) 220 mg DAILY PO Last administered on 01/26/19 07:52; Admin Dose 220 MG; Start 01/17/19 at 18:17 Ascorbic Acid (Vitamin C) 250 mg DAILY PO Last administered on 01/26/19 07:53; Admin Dose 250 MG; Start 01/17/19 at 18:17 Albuterol/ Ipratropium (Duoneb) 3 ml Q6H RESP THERAPY HHN Last administered on 01/26/19 08:04; Admin Dose 3 ML; Start 01/17/19 at 18:17 Multi-Ingredient Ointment (Aquaphor Oint 52.5 Gm) 1 applic BID TOP Last administered on 01/26/19 07:54; Admin Dose 1 APPLIC; Start 01/17/19 at 18:17 Aspirin (Aspirin) 81 mg DAILY PO Last administered on 01/26/19 07:52; Admin Dose 81 MG; Start 01/17/19 at 18:17 Ferrous Sulfate (Ferrous Sulfate (Ec)) 325 mg WITH MEALS PO Last administered on 01/26/19 11:56; Admin Dose 325 MG; Start 01/17/19 at 18:17 Bisacodyl (Dulcolax Supp) 10 mg DAILY PRN CO CONSTIPATION; Start 01/17/19 at 18:17 Zinc Acetate/ Diphenhydramine (Benadryl 2% Cr) 1 applic Q6H PRN TOP ITCHING Last administered on 01/26/19 07:54; Admin Dose 1 APPLIC; Start 01/19/19 at 16:37 Nystatin/ Triamcinolone Acetonide (Mycolog Cr) 1 applic BID TOP Last administ ered on 01/26/19at 07:55; Admin Dose 1 APPLIC; Start 01/19/19 at 22:41 Epoetin Dae-epbx (RETACRIT(non-esrd)) 20,000 unit Mo@1700 SC Last administered on 01/20/19at 18:13; Admin Dose 20,000 UNIT; Start 01/20/19 at 17:00 Furosemide (Lasix) 20 mg DAILY IV Last administered on 01/26/19at 07:53; Admin Dose 20 MG; Start 01/21/19 at 09:00 IV Flush (NS 10 ml) 10 ml PRN PRN IV IV PROTOCOL; Start 01/20/19 at 14:30 Cyanocobalamin (Vitamin B12 Inj) 1,000 mcg Q7D IM ; Start 02/03/19 at 09:00 Cyanocobalamin (Vitamin B12 Inj) 1,000 mcg DAILY IM Last administered on 01/24/19at 08:17; Admin Dose 1,000 MCG; Start 01/21/19 at 09:00; Stop 01/27/19 at 09:00 JESI GATES January 26, 2019 12:37
[2019-01-26] MEDS ORDERED: SOD CHLORIDE 0.9% 1,000 ML IV SCH (13:00)
--- NOTE | 2019-01-26 13:06 | PN ---
Date/Time of Note Date/Time of Note DATE: 01/26/19 TIME: 13:03 Assessment/Plan VTE Prophylaxis [place] [facility] [place]: 6 SCD applied [place] [facility] [place] No SCD contraindicated: bilateral LE trauma Pharmacological prophylaxis: NA/contraindicated Pharm contraindication: anticoag not tolerated Lines/Catheters IV C[facility] Type (from [facility] PICC Line Central line still needed: Yes Urinary Cath still in place: Yes Reason Cath still needed: urinary retention Assessment/Plan Hospital Course 1. Sepsis, WBC elevated , lactic acidosis 2. Severe anemia 3. Chronic renal failure likely secondary to sepsis, improved, normal creatinine 4. Hypertension. 5. Hyperlipidemia. 6. Hypothyroidism. 7. Normocytic normochromic chronic anemia with recent hemoglobin drop. 8. Bilateral groin cellulitis more likely associated with mateus, patches in groin and axilla bilaterally. skin peeling 9. History of rheumatoid arthritis with joint deformities. 10. Diabetes type 2. 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 Peripheral vascular disease. 13. Chronic a.fib 14. right arm edema 15. Neoplasm per CT abdomen. 4.3 cm cystic lesion along the pancreas body, enlarged since 10/10/2012 (previously 2.4 cm). 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 16. Possible allergic skin reaction 17. altered mental status delirium vs stroke, resolved Assessment/Plan - mental status, confused -not eating -start D10 - fu Neuro recs -on ASA, statin -WBC decreasing -BUN increased -UA today - iv caspofungin - neuro check -cw on Epogen per oncology -1 unit PRBC -oncology consul dr Lorenzo aware:he said Ca 19-9 is negative indicating unlikely malignant. This may be a pseudocyst or a precancerous pancreatic lesion. It has been growing in size but patient is asymptomatic. EUS with biopsy is recommended and can either be done inpatient or outpatient setting. The patient at this time is unlikely a candidate for a Whipple surgery however. -skin care -IV Lasix -case management [facility], working on Result Diagram: 01/25/19 0549 01/26/19 0553 Results 24hrs Laboratory Tests Test 01/25/19 17:21 01/25/19 21:12 01/26/19 05:53 01/26/19 07:51 Bedside Glucose 118 121 101 Sodium Level 137 Potassium Level 4.3 Chloride Level 103 Carbon Dioxide Level 27 Anion Gap 7 Blood Urea Nitrogen 39 H Creatinine 1.03 Est Glomerular Filtrat Rate mL/min Glucose Level 92 Calcium Level 8.4 Test 01/26/19 11:55 Bedside Glucose 88 Subjective 24 Hr Interval Summary Subjective hx not possible: pt non-verbal Constitutional: disoriented Exam/Review of Systems Exam Vitals Vital Signs Date Temp Pulse Resp B/P (MAP) Pulse Ox O2 O2 Flow FiO2 Time Delivery Rate 01/26/19 94 12:33 01/26/19 97.0 20 102/50 98 Nasal 11:57 (67) Cannula 01/26/19 2.0 08:05 Intake and Output 01/25/19 01/25/19 01/26/19 1515:00 23:00 07:00 IntakeIntake Total 250 ml OutputOutput Total 400 ml BalanceBalance -150 ml Constitutional: frail Respiratory: diminished breath sounds Cardiovascular: irregular rhythm Gastrointestinal: soft Genitourinary - Male: other (rinaldi) Skin: other (peeling) Results Results 24hrs Laboratory Tests Test 01/25/19 17:21 01/25/19 21:12 01/26/19 05:53 01/26/19 07:51 Bedside Glucose 118 121 101 Sodium Level 137 Potassium Level 4.3 Chloride Level 103 Carbon Dioxide Level 27 Anion Gap 7 Blood Urea Nitrogen 39 H Creatinine 1.03 Est Glomerular Filtrat Rate mL/min Glucose Level 92 Calcium Level 8.4 Test 01/26/19 11:55 Bedside Glucose 88 Medications Medication Current Medications Docusate Sodium (Colace) 100 mg BID PO Last administered on 01/26/19at 07:52; Admin Dose 100 MG; Start 01/17/19 at 18:17 Lactulose (Enulose) 20 gm DAILY PRN PO CONSTIPATION; Start 01/17/19 at 18:17 Acetaminophen (Tylenol Tab) 650 mg Q4H PRN PO PAIN Last administered on 01/23/19at 22:48; Admin Dose 650 MG; Start 01/17/19 at 18:17 Miscellaneous Information (Pending [facility] Order For Wound Care) This patient ramirez... PRN PRN XX WOUND CARE; Start 01/17/19 at 18:17 Diagnostic Test (Pha) (Accu-Chek) 1 ea AC MEALS AND BEDTIME XX Last admin istered on 01/25/19 17:23; Admin Dose 1 EA; Start 01/17/19 at 18:17 Diagnostic Test (Pha) (Accu-Chek) 1 ea 02 XX Last administered on 01/22/19 02:00; Admin Dose 1 EA; Start 01/17/19 at 18:17 Albuterol/ Ipratropium (Duoneb) 3 ml Q2H RESP THERAPY PRN HHN SHORTNESS OF BREATH; Start 01/17/19 at 18:17 Atorvastatin Calcium (Lipitor) 40 mg QHS PO Last administered on 01/25/19 20:30; Admin Dose 40 MG; Start 01/17/19 at 18:17 Bisacodyl (Dulcolax) 10 mg BID PRN PO CONSTIPATION; Start 01/17/19 at 18:17 Folic Acid (Folic Acid) 1 mg DAILY PO Last administered on 01/26/19 07:52; Admin Dose 1 MG; Start 01/17/19 at 18:17 Insulin Aspart (Novolog Insulin Pen) NOVOLOG *MILD* ALGORITHM WITH MEALS BEDTIME SC Last administered on 01/24/19 16:55; Admin Dose 1 UNIT; Start 01/17/19 at 18:17 Latanoprost (Xalatan) 1 drop HS BOTH EYES Last administered on 01/25/19 20:31; Admin Dose 1 DROP; Start 01/17/19 at 18:17 Levothyroxine Sodium (Synthroid) 125 mcg BEFORE BREAKFAST PO Last administered on 01/26/19 06:07; Admin Dose 125 MCG; Start 01/17/19 at 18:17 Metoprolol Tartrate (Lopressor) 50 mg BID PO Last administered on 01/25/19 20:30; Admin Dose 50 MG; Start 01/17/19 at 18:17 Nitroglycerin (Nitroglycerin (Sl Tab) 0.4 Mg) 0.4 tab Q5M PRN SL CHEST PAIN; Start 01/17/19 at 18:17 Nystatin (Nystatin Powder) 1 applic BID TOP Last administered on 01/26/19 07:54; Admin Dose 1 APPLIC; Start 01/17/19 at 18:17 Pantoprazole (Protonix Tab) 40 mg DAILY@06 PO Last administered on 01/26/19 06:07; Admin Dose 40 MG; Start 01/17/19 at 18:17 IV Flush (NS 3 ml) 3 ml PER PROTOCOL IV ; Start 01/17/19 at 18:17 Terazosin HCl (Hytrin) 10 mg HS PO Last administered on 01/25/19 20:29; Admin Dose 10 MG; Start 01/17/19 at 18:17 Miscellaneous Information 1 ea NOTE XX ; Start 01/17/19 at 18:17 Glucose (Glutose) 15 gm Q15M PRN PO DECREASED GLUCOSE; Start 01/17/19 at 18:17 Glucose (Glutose) 22.5 gm Q15M PRN PO DECREASED GLUCOSE; Start 01/17/19 at 18:17 Dextrose (D50w Syringe) 25 ml Q15M PRN IV DECREASED GLUCOSE; Start 01/17/19 at 18:17 Dextrose (D50w Syringe) 50 ml Q15M PRN IV DECREASED GLUCOSE; Start 01/17/19 at 18:17 Glucagon (Glucagen) 1 mg Q15M PRN IM DECREASED GLUCOSE; Start 01/17/19 at 18:17 Glucose (Glutose) 15 gm Q15M PRN BUCCAL DECREASED GLUCOSE; Start 01/17/19 at 18:17 Multivitamins Therapeutic (Theragran) 1 tab DAILY PO Last administered on 01/26/19 07:53; Admin Dose 1 TAB; Start 01/17/19 at 18:17 Zinc Sulfate (Zinc Sulfate) 220 mg DAILY PO Last administered on 01/26/19 07:52; Admin Dose 220 MG; Start 01/17/19 at 18:17 Ascorbic Acid (Vitamin C) 250 mg DAILY PO Last administered on 01/26/19 07:53; Admin Dose 250 MG; Start 01/17/19 at 18:17 Albuterol/ Ipratropium (Duoneb) 3 ml Q6H RESP THERAPY HHN Last administered on 01/26/19 08:04; Admin Dose 3 ML; Start 01/17/19 at 18:17 Multi-Ingredient Ointment (Aquaphor Oint 52.5 Gm) 1 applic BID TOP Last administered on 01/26/19 07:54; Admin Dose 1 APPLIC; Start 01/17/19 at 18:17 Aspirin (Aspirin) 81 mg DAILY PO Last administered on 01/26/19 07:52; Admin Dose 81 MG; Start 01/17/19 at 18:17 Ferrous Sulfate (Ferrous Sulfate (Ec)) 325 mg WITH MEALS PO Last administered on 01/26/19at 11:56; Admin Dose 325 MG; Start 01/17/19 at 18:17 Bisacodyl (Dulcolax Supp) 10 mg DAILY PRN [place] CONSTIPATION; Start 01/17/19 at 18:17 Zinc Acetate/ Diphenhydramine (Benadryl 2% Cr) 1 applic Q6H PRN TOP ITCHING Last administered on 01/26/19at 07:54; Admin Dose 1 APPLIC; Start 01/19/19 at 16:37 Nystatin/ Triamcinolone Acetonide (Mycolog Cr) 1 applic BID TOP Last administered on 01/26/19at 07:55; Admin Dose 1 APPLIC; Start 01/19/19 at 22:41 Epoetin Dae-epbx (RETACRIT(non-esrd)) 20,000 unit Mo@1700 SC Last administered on 01/20/19at 18:13; Admin Dose 20,000 UNIT; Start 01/20/19 at 17:00 Furosemide (Lasix) 20 mg DAILY IV Last administered on 01/26/19at 07:53; Admin Dose 20 MG; Start 01/21/19 at 09:00 IV Flush (NS 10 ml) 10 ml PRN PRN IV IV PROTOCOL; Start 01/20/19 at 14:30 Cyanocobalamin (Vitamin B12 Inj) 1,000 mcg Q7D IM ; Start 02/03/19 at 09:00 Cyanocobalamin (Vitamin B12 Inj) 1,000 mcg DAILY IM Last administered on 01/24/19at 08:17; Admin Dose 1,000 MCG; Start 01/21/19 at 09:00; Stop 01/27/19 at 09:00 Sodium Chloride 1,000 ml @ 50 mls/hr Q20H IV ; Start 01/26/19 at 13:00 Dextrose 1,000 ml @ 40 mls/hr Q24H IV ; Start 01/26/19 at 13:00; Status COOPER LINDO January 26, 2019 13:06
[2019-01-26] MEDS: DEXTROSE 10% 1,000 ML IV SCH (13:37)
--- NOTE | 2019-01-26 14:25 | CONS ---
Assessment/Plan Assessment/Plan Hospital Course (Demo Recall) IMPRESSION: 1. Atrial fibrillation, currently rate controlled.-off systemic anticoagulation due to anemia. ON asa only due to anemia 2. Possible congestive heart failure by chest x-ray, which will be diastolic, acute on chronic by most recent echo with an EF of 60%. 3. Tricuspid regurgitation, moderate by most recent echo. 4. Acute on chronic renal failure-mild worsening 5. Possible pneumonia. 6. History of coronary artery disease, status post coronary artery bypass graft surgery. 7. Dyslipidemia. 8. Rheumatoid arthritis. 9. Groin cellulitis. 10. Anemia-worsening again today requiring transfusions PRBC's.Now post-op s/p endoscopy 11. Diabetes mellitus. 12. Sepsis/leukocytosis 14. abdominal mass 15. Rash-all over body with skin chaffing at this time Recc: -Now on tele -serial ecg's -Continue BB as tolerated -s/p dose of IVP digoxin with improved HR's overall -Baby asa as tolerated only -Continue lasix but follow volume status closely -Continue statin -Currently off abx's/antifungals, f/u cx data -Ongoing GI eval of abd mass -Ongoing neuro eval of possible CVA/AMS with pnding MRI as possible and if unable will likely be followed with serial Head CT Consultation Date/Type/Reason Admit Date/Time Jan 17, 2019 at 15:58 Initial Consult Date 01/18/19 Type of Consult Cardiology Reason for Consultation CHF Requesting Provider: IVAN AKHTAR MD Date/Time of Note DATE: 01/26/19 TIME: 14:21 Exam/Review of Systems Vital Signs Vitals Vital Signs Date Temp Pulse Resp B/P (MAP) Pulse Ox O2 O2 Flow FiO2 Time Delivery Rate 01/26/19 94 18 96 Nasal 2.0 14:09 Cannula 01/26/19 97.0 102/50 11:57 (67) Intake and Output 01/25/19 01/25/19 01/26/19 1515:00 23:00 07:00 IntakeIntake Total 250 ml OutputOutput Total 400 ml BalanceBalance -150 ml Exam Exam Review of Systems: CONSTITUTIONAL: No fevers, chills. PULMONARY: No sob CARDIOVASCULAR: No chest pain/palpitations GASTROINTESTINAL: No nausea/vomiting. GENITOURINARY: No hematuria/dysuria. MUSCULOSKELETAL: No myagias/arthalgias. PSYCHIATRIC: The patient denies depression. NEUROLOGIC: confused/lethargic Constitutional: alert Psych: confusion Head: normocephalic ENMT: mucosa pink and moist Neck: supple, jvd (9 cm water) Respiratory: diminished breath sounds (at bases/B) Cardiovascular: regular rate and rhythm Gastrointestinal: soft, non-tender Musculoskeletal: muscle weakness (generalized) Extremities: edema (none) Neurological: confused Skin: other (breakdown/chaffing) Labs Result Diagram: 01/25/19 0549 01/26/19 0553 Results 24hrs Laboratory Tests Test 01/25/19 17:21 01/25/19 21:12 01/26/19 05:53 01/26/19 07:51 Bedside Glucose 118 121 101 Sodium Level 137 Potassium Level 4.3 Chloride Level 103 Carbon Dioxide Level 27 Anion Gap 7 Blood Urea Nitrogen 39 H Creatinine 1.03 Est Glomerular Filtrat Rate mL/min Glucose Level 92 Calcium Level 8.4 Test 01/26/19 11:55 Bedside Glucose 88 Medications Medications Current Medications Docusate Sodium (Colace) 100 mg BID PO Last administered on 01/26/19at 07:52; Admin Dose 100 MG; Start 01/17/19 at 18:17 Lactulose (Enulose) 20 gm DAILY PRN PO CONSTIPATION; Start 01/17/19 at 18:17 Acetaminophen (Tylenol Tab) 650 mg Q4H PRN PO PAIN Last administered on 01/23/19at 22:48; Admin Dose 650 MG; Start 01/17/19 at 18:17 Miscellaneous Information (Pending [facility] Order For Wound Care) This patient ramirez... PRN PRN XX WOUND CARE; Start 01/17/19 at 18:17 Diagnostic Test (Pha) (Accu-Chek) 1 ea AC MEALS AND BEDTIME XX Last administered on 01/25/19at 17:23; Admin Dose 1 EA; Start 01/17/19 at 18:17 Diagnostic Test (Pha) (Accu-Chek) 1 ea 02 XX Last administered on 01/22/19at 02:00; Admin Dose 1 EA; Start 01/17/19 at 18:17 Albuterol/ Ipratropium (Duoneb) 3 ml Q2H RESP THERAPY PRN HHN SHORTNESS OF BREATH; Start 01/17/19 at 18:17 Atorvastatin Calcium (Lipitor) 40 mg QHS PO Last administered on 01/25/19 20:30; Admin Dose 40 MG; Start 01/17/19 at 18:17 Bisacodyl (Dulcolax) 10 mg BID PRN PO CONSTIPATION; Start 01/17/19 at 18:17 Folic Acid (Folic Acid) 1 mg DAILY PO Last administered on 01/26/19 07:52; Admin Dose 1 MG; Start 01/17/19 at 18:17 Insulin Aspart (Novolog Insulin Pen) NOVOLOG *MILD* ALGORITHM WITH MEALS BED TIME SC Last administered on 01/24/19 16:55; Admin Dose 1 UNIT; Start 01/17/19 at 18:17 Latanoprost (Xalatan) 1 drop HS BOTH EYES Last administered on 01/25/19 20:31; Admin Dose 1 DROP; Start 01/17/19 at 18:17 Levothyroxine Sodium (Synthroid) 125 mcg BEFORE BREAKFAST PO Last administered on 01/26/19 06:07; Admin Dose 125 MCG; Start 01/17/19 at 18:17 Metoprolol Tartrate (Lopressor) 50 mg BID PO Last administered on 01/25/19 20:30; Admin Dose 50 MG; Start 01/17/19 at 18:17 Nitroglycerin (Nitroglycerin (Sl Tab) 0.4 Mg) 0.4 tab Q5M PRN SL CHEST PAIN; Start 01/17/19 at 18:17 Nystatin (Nystatin Powder) 1 applic BID TOP Last administered on 01/26/19 07:54; Admin Dose 1 APPLIC; Start 01/17/19 at 18:17 Pantoprazole (Protonix Tab) 40 mg DAILY@06 PO Last administered on 01/26/19 06:07; Admin Dose 40 MG; Start 01/17/19 at 18:17 IV Flush (NS 3 ml) 3 ml PER PROTOCOL IV ; Start 01/17/19 at 18:17 Terazosin HCl (Hytrin) 10 mg HS PO Last administered on 01/25/19 20:29; Admin Dose 10 MG; Start 01/17/19 at 18:17 Miscellaneous Information 1 ea NOTE XX ; Start 01/17/19 at 18:17 Glucose (Glutose) 15 gm Q15M PRN PO DECREASED GLUCOSE; Start 01/17/19 at 18:17 Glucose (Glutose) 22.5 gm Q15M PRN PO DECREASED GLUCOSE; Start 01/17/19 at 18:17 Dextrose (D50w Syringe) 25 ml Q15M PRN IV DECREASED GLUCOSE; Start 01/17/19 at 18:17 Dextrose (D50w Syringe) 50 ml Q15M PRN IV DECREASED GLUCOSE; Start 01/17/19 at 18:17 Glucagon (Glucagen) 1 mg Q15M PRN IM DECREASED GLUCOSE; Start 01/17/19 at 18:17 Glucose (Glutose) 15 gm Q15M PRN BUCCAL DECREASED GLUCOSE; Start 01/17/19 at 18:17 Multivitamins Therapeutic (Theragran) 1 tab DAILY PO Last administered on 01/26/19 07:53; Admin Dose 1 TAB; Start 01/17/19 at 18:17 Zinc Sulfate (Zinc Sulfate) 220 mg DAILY PO Last administered on 01/26/19 07:52; Admin Dose 220 MG; Start 01/17/19 at 18:17 Ascorbic Acid (Vitamin C) 250 mg DAILY PO Last administered on 01/26/19 07:53; Admin Dose 250 MG; Start 01/17/19 at 18:17 Albuterol/ Ipratropium (Duoneb) 3 ml Q6H RESP THERAPY HHN Last administered on 01/26/19 14:09; Admin Dose 3 ML; Start 01/17/19 at 18:17 Multi-Ingredient Ointment (Aquaphor Oint 52.5 Gm) 1 applic BID TOP Last administered on 01/26/19 07:54; Admin Dose 1 APPLIC; Start 01/17/19 at 18:17 Aspirin (Aspirin) 81 mg DAILY PO Last administered on 01/26/19 07:52; Admin Dose 81 MG; Start 01/17/19 at 18:17 Ferrous Sulfate (Ferrous Sulfate (Ec)) 325 mg WITH MEALS PO Last administered on 01/26/19 11:56; Admin Dose 325 MG; Start 01/17/19 at 18:17 Bisacodyl (Dulcolax Supp) 10 mg DAILY PRN [place] CONSTIPATION; Start 01/17/19 at 18:17 Zinc Acetate/ Diphenhydramine (Benadryl 2% Cr) 1 applic Q6H PRN TOP ITCHING Last administered on 01/26/19 07:54; Admin Dose 1 APPLIC; Start 01/19/19 at 16:37 Nystatin/ Triamcinolone Acetonide (Mycolog Cr) 1 applic BID TOP Last administered on 01/26/19 07:55; Admin Dose 1 APPLIC; Start 01/19/19 at 22:41 Epoetin Dae-epbx (RETACRIT(non-esrd)) 20,000 unit Mo@1700 SC Last administered on 01/20/19at 18:13; Admin Dose 20,000 UNIT; Start 01/20/19 at 17:00 Furosemide (Lasix) 20 mg DAILY IV Last administered on 01/26/19 07:53; Admin Dose 20 MG; Start 01/21/19 at 09:00 IV Flush (NS 10 ml) 10 ml PRN PRN IV IV PROTOCOL; Start 01/20/19 at 14:30 Cyanocobalamin (Vitamin B12 Inj) 1,000 mcg Q7D IM ; Start 02/03/19 at 09:00 Cyanocobalamin (Vitamin B12 Inj) 1,000 mcg DAILY IM Last administered on 01/24/19at 08:17; Admin Dose 1,000 MCG; Start 01/21/19 at 09:00; Stop 01/27/19 at 09:00 Dextrose 1,000 ml @ 40 mls/hr Q24H IV Last administered on 01/26/19 13:37; Admin Dose 40 MLS/HR; Start 01/26/19 at 13:00 MARJORIE JAIN January 26, 2019 14:25
[2019-01-26] MEDS ORDERED: METOPROLOL 5 MG INJ IV PRN (14:30)
--- NOTE | 2019-01-26 15:51 | CONS ---
Assessment/Plan Assessment/Plan Assessment/Plan (Daily) Interval hx: Pending morning labs. M 1. Severe anemia likely due to chronic disease, last work up while admitted to [facility] about a week ago was neg for GI bleeding, including EGD/colon which was done -s/p EGD and colonoscopy by Dr Frost 01/09/19 which didn't find an obvious GI etiology to explain anemia. AVM or a small lesion could be missed due to poor prep. Pt likely needs capsule endoscopy -Neg fob, elevate retic, Low iron, tibc, and sat, ferritin [place] [id number] 2. Cystic lesion along pancreas body - 4.3 cm cystic lesion along the pancreas body, enlarged since 10/10/2012 (previously 2.4 cm). 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 -CEA wnl 3. Severe gastritis 4. Hemorrhoids 5. Hital hernia 6. A fib, -eliquis was stopped 01/06 during previous admission, on ASA 7. COPD 8. HTN 9. Hypothyroidism 10. Bilateral groin cellulitis 11. Rheumatoid arthritis. 12. Diabetes mellitus. 13. Peripheral vascular disease. 14. CHF 15. 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 Sepsis- Leukocytosis up to 29, urine cx was unremarkable CT Abd 01/15/19 IMPRESSION: 1. No intra-abdominal inflammation or lymphadenopathy. 2. 4.3 cm cystic lesion along the pancreas body, enlarged since 10/10/2012 (previously 2.4 cm). 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 If clinically warranted, this could be further evaluated with contrast-enhanced MRI. 3. No obstructive uropathy or urinary stone. 4. Enlarged prostate gland. Correlation with PSA level is recommended. 5. Moderate atherosclerotic arterial calcifications. 6. Diffuse subcutaneous edema. 7. Status post posterior decompression and fusion at L5-S1. A malpositioned pedicle screw and impinges on the left L4-5 neural foramen, unchanged. 8. Grade 2 degenerative L4 anterolisthesis and grade 1 degenerative L5 anterolisthesis. 9. Questionable CVA, encephalopathy resolved 10. Discoloration of the skin of the lower extremity and also upper extremity and peeling of the skin may be all related to drug-induced reaction Plan Stop miralax for mx bm, hold laxatives for diarrhea Recommend carranza cx Pt will need outpatient EUS to evaluate pancreatic cystic lesion, this can be done as an outpatient at outside facility by me Recommend capsule endoscopy as outpatient GI prophylaxis: protonix QD Pain management Monitor H&H if no bleeding resume direct anticoagulant Consultation Date/Type/Reason Admit Date/Time Jan 17, 2019 at 15:58 Initial Consult Date 01/18/19 Requesting Provider: IVAN AKHTAR MD Date/Time of Note DATE: 01/26/19 TIME: 15:50 24 HR Interval Summary Constitutional: disoriented Exam/Review of Systems Exam Vitals Vital Signs Date Temp Pulse Resp B/P (MAP) Pulse Ox O2 O2 Flow FiO2 Time Delivery Rate 01/26/19 97.0 93 20 123/57 98 Nasal 15:32 (79) Cannula 01/26/19 2.0 14:09 Intake and Output 01/25/19 01/25/19 01/26/19 1515:00 23:00 07:00 IntakeIntake Total 250 ml OutputOutput Total 400 ml BalanceBalance -150 ml Constitutional: alert, oriented, well developed Psych: no complaints, nl mood/affect Head: normocephalic, atraumatic Eyes: nl conjunctiva, EOMI, nl lids, nl sclera, PERRL ENMT: nl external ears & nose, nl lips & teeth, nl nasal mucosa & septum Neck: supple, non-tender Respiratory: clear to auscultation, normal air movement Cardiovascular: regular rate and rhythm, nl pulses Gastrointestinal: soft, nl liver, spleen, non-tender Musculoskeletal: nl extremities to inspection, nl gait and stance Extremities: normal pulses 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, nl mental status, nl speech, nl strength Skin: nl turgor; No rash or lesions Lymph: nl lymph nodes Results Result Diagram: 01/25/19 0549 01/26/19 0553 Results 24hrs Laboratory Tests Test 01/25/19 17:21 01/25/19 21:12 01/26/19 05:53 01/26/19 07:51 Bedside Glucose 118 121 101 Sodium Level 137 Potassium Level 4.3 Chloride Level 103 Carbon Dioxide Level 27 Anion Gap 7 Blood Urea Nitrogen 39 H Creatinine 1.03 Est Glomerular Filtrat Rate mL/min Glucose Level 92 Calcium Level 8.4 Test 01/26/19 11:55 Bedside Glucose 88 Medications Medication Current Medications Docusate Sodium (Colace) 100 mg BID PO Last administered on 01/26/19 07:52; Admin Dose 100 MG; Start 01/17/19 at 18:17 Lactulose (Enulose) 20 gm DAILY PRN PO CONSTIPATION; Start 01/17/19 at 18:17 Acetaminophen (Tylenol Tab) 650 mg Q4H PRN PO PAIN Last administered on 01/23/19 22:48; Admin Dose 650 MG; Start 01/17/19 at 18:17 Miscellaneous Information ([facility] This patient ramirez... PRN PRN XX WOUND CARE; Start 01/17/19 at 18:17 Diagnostic Test (Pha) (Accu-Chek) 1 ea AC MEALS AND BEDTIME XX Last administered on 01/25/19 17:23; Admin Dose 1 EA; Start 01/17/19 at 18:17 Diagnostic Test (Pha) (Accu-Chek) 1 ea 02 XX Last administered on 01/22/19 02:00; Admin Dose 1 EA; Start 01/17/19 at 18:17 Albuterol/ Ipratropium (Duoneb) 3 ml Q2H RESP THERAPY PRN HHN SHORTNESS OF BREATH; Start 01/17/19 at 18:17 Atorvastatin Calcium (Lipitor) 40 mg QHS PO Last administered on 01/25/19 20:30; Admin Dose 40 MG; Start 01/17/19 at 18:17 Bisacodyl (Dulcolax) 10 mg BID PRN PO CONSTIPATION; Start 01/17/19 at 18:17 Folic Acid (Folic Acid) 1 mg DAILY PO Last administered on 01/26/19 07:52; Admin Dose 1 MG; Start 01/17/19 at 18:17 Insulin Aspart (Novolog Insulin Pen) NOVOLOG *MILD* ALGORITHM WITH MEALS BEDTIME SC Last administered on 01/24/19 16:55; Admin Dose 1 UNIT; Start 01/17/19 at 18:17 Latanoprost (Xalatan) 1 drop HS BOTH EYES Last administered on 01/25/19 20:31; Admin Dose 1 DROP; Start 01/17/19 at 18:17 Levothyroxine Sodium (Synthroid) 125 mcg BEFORE BREAKFAST PO Last administered on 01/26/19 06:07; Admin Dose 125 MCG; Start 01/17/19 at 18:17 Nitroglycerin (Nitroglycerin (Sl Tab) 0.4 Mg) 0.4 tab Q5M PRN SL CHEST PAIN; Start 01/17/19 at 18:17 Nystatin (Nystatin Powder) 1 applic BID TOP Last administered on 01/26/19at 07:54; Admin Dose 1 APPLIC; Start 01/17/19 at 18:17 Pantoprazole (Protonix Tab) 40 mg DAILY@06 PO Last administered on 01/26/19at 06:07; Admin Dose 40 MG; Start 01/17/19 at 18:17 IV Flush (NS 3 ml) 3 ml PER PROTOCOL IV ; Start 01/17/19 at 18:17 Terazosin HCl (Hytrin) 10 mg HS PO Last administered on 01/25/19at 20:29; Admin Dose 10 MG; Start 01/17/19 at 18:17 Miscellaneous Information 1 ea NOTE XX ; Start 01/17/19 at 18:17 Glucose (Glutose) 15 gm Q15M PRN PO DECREASED GLUCOSE; Start 01/17/19 at 18:17 Glucose (Glutose) 22.5 gm Q15M PRN PO DECREASED GLUCOSE; Start 01/17/19 at 1 8:17 Dextrose (D50w Syringe) 25 ml Q15M PRN IV DECREASED GLUCOSE; Start 01/17/19 at 18:17 Dextrose (D50w Syringe) 50 ml Q15M PRN IV DECREASED GLUCOSE; Start 01/17/19 at 18:17 Glucagon (Glucagen) 1 mg Q15M PRN IM DECREASED GLUCOSE; Start 01/17/19 at 18:17 Glucose (Glutose) 15 gm Q15M PRN BUCCAL DECREASED GLUCOSE; Start 01/17/19 at 18:17 Multivitamins Therapeutic (Theragran) 1 tab DAILY PO Last administered on 01/26/19at 07:53; Admin Dose 1 TAB; Start 01/17/19 at 18:17 Zinc Sulfate (Zinc Sulfate) 220 mg DAILY PO Last administered on 01/26/19at 07:52; Admin Dose 220 MG; Start 01/17/19 at 18:17 Ascorbic Acid (Vitamin C) 250 mg DAILY PO Last administered on 01/26/19at 07:53; Admin Dose 250 MG; Start 01/17/19 at 18:17 Albuterol/ Ipratropium (Duoneb) 3 ml Q6H RESP THERAPY HHN Last administered on 01/26/19 14:09; Admin Dose 3 ML; Start 01/17/19 at 18:17 Multi-Ingredient Ointment (Aquaphor Oint 52.5 Gm) 1 applic BID TOP Last administered on 01/26/19 07:54; Admin Dose 1 APPLIC; Start 01/17/19 at 18:17 Aspirin (Aspirin) 81 mg DAILY PO Last administered on 01/26/19 07:52; Admin Dose 81 MG; Start 01/17/19 at 18:17 Ferrous Sulfate (Ferrous Sulfate (Ec)) 325 mg WITH MEALS PO Last administered on 01/26/19 11:56; Admin Dose 325 MG; Start 01/17/19 at 18:17 Bisacodyl (Dulcolax Supp) 10 mg DAILY PRN [place] CONSTIPATION; Start 01/17/19 at 18:17 Zinc Acetate/ Diphenhydramine (Benadryl 2% Cr) 1 applic Q6H PRN TOP ITCHING Last administered on 01/26/19 07:54; Admin Dose 1 APPLIC; Start 01/19/19 at 16:37 Nystatin/ Triamcinolone Acetonide (Mycolog Cr) 1 applic BID TOP Last administered on 01/26/19 07:55; Admin Dose 1 APPLIC; Start 01/19/19 at 22:41 Epoetin Dae-epbx (RETACRIT(non-esrd)) 20,000 unit Mo@1700 SC Last administered on 01/20/19 18:13; Admin Dose 20,000 UNIT; Start 01/20/19 at 17:00 Furosemide (Lasix) 20 mg DAILY IV Last administered on 01/26/19 07:53; Admin Dose 20 MG; Start 01/21/19 at 09:00 IV Flush (NS 10 ml) 10 ml PRN PRN IV IV PROTOCOL; Start 01/20/19 at 14:30 Cyanocobalamin (Vitamin B12 Inj) 1,000 mcg Q7D IM ; Start 02/03/19 at 09:00 Cyanocobalamin (Vitamin B12 Inj) 1,000 mcg DAILY IM Last administered on 01/24/19 08:17; Admin Dose 1,000 MCG; Start 01/21/19 at 09:00; Stop 01/27/19 at 09:00 Dextrose 1,000 ml @ 40 mls/hr Q24H IV Last administered on 01/26/19at 13:37; Admin Dose 40 MLS/HR; Start 01/26/19 at 13:00 Metoprolol Tartrate (Lopressor) 25 mg BID PO ; Start 01/26/19 at 21:00 Metoprolol Tartrate (Lopressor) 5 mg Q4H PRN IV HR>110 Hold SBP<100; Start 01/26/19 at 14:30 MICHELLE FROST MD January 26, 2019 15:51
[2019-01-26] MEDS: ATORVASTATIN 40 MG TAB PO SCH (20:33)
[2019-01-26] MEDS: METOPROLOL 25 MG TAB PO SCH (20:34)
[2019-01-26] MEDS: TERAZOSIN 5 MG CAP PO SCH (20:35)
[2019-01-26] MEDS: LATANOPROST 0.005% 2.5 ML OPH BOTH EYES SCH (20:41)
[2019-01-27] VITALS (55 sets, daily range): BP systolic 65–133; BP diastolic 37–99; PULSE 72–128; RESP 10–27; Ht 170.2 cm; Wt 75.2 kg
[2019-01-27] MEDS: ALBUTEROL/IPRATROPIUM (NEB) 3 ML AMP HHN SCH ×4 (01:41→20:14)
[2019-01-27] MEDS: ACCU-CHEK XX SCH ×5 (02:00→21:09)
[2019-01-27] MEDS: LEVOTHYROXINE 125 MCG TAB PO SCH (05:37)
[2019-01-27] MEDS: PANTOPRAZOLE (EC) 40 MG TAB PO SCH (05:37)
[2019-01-27] MEDS: FERROUS SULFATE (EC) 325 MG TAB PO SCH ×3 (07:55→17:35)
[2019-01-27] MEDS: CYANOCOBALAMIN 1000 MCG INJ IM SCH (08:12)
[2019-01-27] MEDS: FOLIC ACID 1 MG TAB PO SCH (08:12)
[2019-01-27] MEDS: DOCUSATE SODIUM 100 MG CAP PO SCH (08:12)
[2019-01-27] MEDS: ASPIRIN 81 MG TAB PO SCH (08:12)
[2019-01-27] MEDS: ZINC SULFATE 220 MG CAP PO SCH (08:13)
[2019-01-27] MEDS: METOPROLOL 25 MG TAB PO SCH ×2 (08:13→21:00)
[2019-01-27] MEDS: ASCORBIC ACID 250 MG TAB PO SCH (08:13)
[2019-01-27] MEDS: MULTIVITAMINS THERAPEUTIC TAB PO SCH (08:13)
[2019-01-27] MEDS: FUROSEMIDE 20 MG INJ IV SCH (08:29)
[2019-01-27] MEDS: INSULIN ASPART [NOVOLOG] 3 ML PEN SC SCH ×4 (08:36→20:57)
[2019-01-27] MEDS: NYSTATIN 30 GM POWDER BTL TOP SCH ×2 (09:27→23:48)
[2019-01-27] MEDS: AQUAPHOR 52.5 GM OINT TOP SCH ×2 (09:27→21:07)
[2019-01-27] MEDS: NYSTATIN/TRIAMCINOLONE 15 GM CR TOP SCH ×2 (09:27→21:07)
[2019-01-27] MEDS: BALSAM PERU/CASTOR OIL 60 GM TUBE TOP SCH ×2 (09:27→21:07)
--- NOTE | 2019-01-27 09:50 | CONS ---
Assessment/Plan Assessment/Plan Hospital Course (Demo Recall) 88 yo male with multiple medical problems including DM, CRF, RA, PVD and chronic afib on Eliquis who presented to [facility] 01/05/19 with severe normocytic anemia and Hg ~7. 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 Elevated Methylmalonic acid level noted -Patient still has low iron level even though ferritin is elevated. Ferritin likely elevated due to acute phase reactant. -Instead po iron may need IV iron as patient has severe atrophic gastritis which may be causing absorption issues. -continue vitamin b12 weekly as vitamin b12 was low normal and methylmalonic acid was elevated. Continue folate as well. -No evidence of hemolysis at this time. -Transfuse to keep Hgb > 7. -will continue procrit 74491 units weekly at this time # Pancreatic cystic mass -Ca 19-9 is negative indicating unlikely malignant. -This may be a pseudocyst or a precancerous pancreatic lesion. -It has been growing in size but patient is asymptomatic. EUS with biopsy is recommended and can either be done inpatient or oupatient setting. -The patient at this time is unlikely a candidate for a whipple surgery however. Thank you to Dr. Alatorre for allowing [facility] to participate in the care of this patient. A total of 40 minutes was spent in consultation with this patient and all his questions were answered. Consultation Date/Type/Reason Admit Date/Time Jan 17, 2019 at 15:58 Initial Consult Date 01/18/19 Type of Consult hematology Reason for Consultation anemia Requesting Provider: IVAN AKHTAR MD Date/Time of Note DATE: 01/27/19 TIME: 09:47 24 HR Interval Summary Free Text/Dictation no acute overnight events Exam/Review of Systems Exam Vitals Vital Signs Date Temp Pulse Resp B/P (MAP) Pulse Ox O2 O2 Flow FiO2 Time Delivery Rate 01/27/19 2.0 09:18 01/27/19 72 15 100 Nasal 09:18 Cannula 01/27/19 97.9 87/41 (56) 07:49 Intake and Output 01/26/19 01/26/19 01/27/19 1515:00 23:00 07:00 IntakeIntake Total 380 ml 530 ml OutputOutput Total 500 ml 200 ml BalanceBalance -120 ml 330 ml Constitutional: alert, oriented, distress Psych: confusion Head: normocephalic Eyes: nl conjunctiva ENMT: nl external ears & nose Neck: supple Respiratory: clear to auscultation Cardiovascular: regular rate and rhythm Gastrointestinal: soft Musculoskeletal: nl extremities to inspection Results Result Diagram: 01/27/19 0630 01/27/19 0630 Results 24hrs Laboratory Tests Test 01/26/19 11:55 01/26/19 15:30 01/26/19 16:54 01/26/19 20:32 Bedside Glucose 88 128 139 Urine Color YELLOW Urine Clarity SLIGHTLY CLOUDY A Urine pH 5.0 Urine Specific 1.013 [place] Urine Ketones NEGATIVE Urine Nitrite NEGATIVE Urine Bilirubin NEGATIVE Urine Urobilinogen NEGATIVE Urine Leukocyte 1+ H Esterase Urine Microscopic 7 H RBC Urine Microscopic 9 H WBC Urine Squamous FEW Epithelial Cells Urine Bacteria FEW A Urine Hyaline FEW A Casts Urine Mucus FEW A Urine Hemoglobin NEGATIVE Urine Glucose NEGATIVE Urine Total NEGATIVE Protein Test 01/27/19 06:30 01/27/19 08:29 White Blood Count 12.9 H Red Blood Count 2.81 L Hemoglobin 8.2 L Hematocrit 25.6 L Mean Corpuscular 91.1 Volume Mean Corpuscular 29.2 Hemoglobin Mean Corpuscular 32.0 Hemoglobin Concent Red Cell 18.0 H Distribution Width Platelet Count 195 Mean Platelet 10.6 H Volume Immature 1.200 H Granulocytes % Neutrophils % 81.6 H Segmented 68 Neutrophils % (Manual) Band Neutrophils % 19 H (Manual) Lymphocytes % 11.9 L Lymphocytes % 7 L (Manual) Monocytes % 4.4 Monocytes % 3 (Manual) Eosinophils % 0.5 Eosinophils % 1 (Manual) Basophils % 0.4 Metamyelocytes % 2 H (manual) Nucleated Red 1 H Blood Cells % Immature 0.150 H Granulocytes # Neutrophils # 10.5 H Neutrophils # 9.1 H (Manual) Band Neutrophils # 2.4 H Lymphocytes 0.9 (Manual) Lymphocytes # 1.5 Monocytes # 0.6 Monocytes # 0.3 (Manual) Eosinophils # 0.1 Basophils # 0.1 Metamyelocytes # 0.2 H Nucleated Red 0.0 Blood Cells # Platelet Estimate NORMAL Giant Platelets 3 H Polychromasia 1+ Hypochromasia 1+ Poikilocytosis 2+ Anisocytosis 2+ Macrocytosis 2+ Target Cells 1+ Sodium Level 140 Potassium Level 3.8 Chloride Level 105 Carbon Dioxide 25 Level Anion Gap 10 Blood Urea 37 H Nitrogen Creatinine 1.20 Est Glomerular Filtrat Rate mL/min Glucose Level 148 # Calcium Level 8.3 L Bedside Glucose 157 Medications Medication Current Medications Docusate Sodium (Colace) 100 mg BID PO Last administered on 01/26/19 20:33; Admin Dose 100 MG; Start 01/17/19 at 18:17 Lactulose (Enulose) 20 gm DAILY PRN PO CONSTIPATION; Start 01/17/19 at 18:17 Acetaminophen (Tylenol Tab) 650 mg Q4H PRN PO PAIN Last administered on 01/23/19 22:48; Admin Dose 650 MG; Start 01/17/19 at 18:17 Miscellaneous Information (Pending [facility] Order For Wound Care) This patient ramirez... PRN PRN XX WOUND CARE; Start 01/17/19 at 18:17 Diagnostic Test (Pha) (Accu-Chek) 1 ea AC MEALS AND BEDTIME XX Last administered on 01/25/19 17:23; Admin Dose 1 EA; Start 01/17/19 at 18:17 Diagnostic Test (Pha) (Accu-Chek) 1 ea 02 XX Last administered on 01/22/19 02:00; Admin Dose 1 EA; Start 01/17/19 at 18:17 Albuterol/ Ipratropium (Duoneb) 3 ml Q2H RESP THERAPY PRN HHN SHORTNESS OF BREATH; Start 01/17/19 at 18:17 Atorvastatin Calcium (Lipitor) 40 mg QHS PO Last administered on 01/26/19 20:33; Admin Dose 40 MG; Start 01/17/19 at 18:17 Bisacodyl (Dulcolax) 10 mg BID PRN PO CONSTIPATION; Start 01/17/19 at 18:17 Folic Acid (Folic Acid) 1 mg DAILY PO Last administered on 01/26/19 07:52; Admin Dose 1 MG; Start 01/17/19 at 18:17 Insulin Aspart (Novolog Insulin Pen) NOVOLOG *MILD* ALGORITHM WITH MEALS BEDTIME SC Last administered on 01/27/19 08:36; Admin Dose 1 UNIT; Start 01/17/19 at 18:17 Latanoprost (Xalatan) 1 drop HS BOTH EYES Last administered on 01/26/19at 20:41; Admin Dose 1 DROP; Start 01/17/19 at 18:17 Levothyroxine Sodium (Synthroid) 125 mcg BEFORE BREAKFAST PO Last administered on 01/27/19at 05:37; Admin Dose 125 MCG; Start 01/17/19 at 18:17 Nitroglycerin (Nitroglycerin (Sl Tab) 0.4 Mg) 0.4 tab Q5M PRN SL CHEST PAIN; Start 01/17/19 at 18:17 Nystatin (Nystatin Powder) 1 applic BID TOP Last administered on 01/27/19at 09:27; Admin Dose 1 APPLIC; Start 01/17/19 at 18:17 Pantoprazole (Protonix Tab) 40 mg DAILY@06 PO Last administered on 01/27/19at 05:37; Admin Dose 40 MG; Start 01/17/19 at 18:17 IV Flush (NS 3 ml) 3 ml PER PROTOCOL IV ; Start 01/17/19 at 18:17 Terazosin HCl (Hytrin) 10 mg HS PO Last administered on 01/26/19at 20:35; Admin Dose 10 MG; Start 01/17/19 at 18:17 Miscellaneous Information 1 ea NOTE XX ; Start 01/17/19 at 18:17 Glucose (Glutose) 15 gm Q15M PRN PO DECREASED GLUCOSE; Start 01/17/19 at 18:17 Glucose (Glutose) 22.5 gm Q15M PRN PO DECREASED GLUCOSE; Start 01/17/19 at 18:17 Dextrose (D50w Syringe) 25 ml Q15M PRN IV DECREASED GLUCOSE; Start 01/17/19 at 18:17 Dextrose (D50w Syringe) 50 ml Q15M PRN IV DECREASED GLUCOSE; Start 01/17/19 at 18:17 Glucagon (Glucagen) 1 mg Q15M PRN IM DECREASED GLUCOSE; Start 01/17/19 at 18:17 Glucose (Glutose) 15 gm Q15M PRN BUCCAL DECREASED GLUCOSE; Start 01/17/19 at 18:17 Multivitamins Therapeutic (Theragran) 1 tab DAILY PO Last administered on 01/26/19at 07:53; Admin Dose 1 TAB; Start 01/17/19 at 18:17 Zinc Sulfate (Zinc Sulfate) 220 mg DAILY PO Last administered on 01/26/19 07:52; Admin Dose 220 MG; Start 01/17/19 at 18:17 Ascorbic Acid (Vitamin C) 250 mg DAILY PO Last administered on 01/26/19 07:53; Admin Dose 250 MG; Start 01/17/19 at 18:17 Albuterol/ Ipratropium (Duoneb) 3 ml Q6H RESP THERAPY HHN Last administered on 01/27/19 09:17; Admin Dose 3 ML; Start 01/17/19 at 18:17 Multi-Ingredient Ointment (Aquaphor Oint 52.5 Gm) 1 applic BID TOP Last administered on 01/27/19 09:27; Admin Dose 1 APPLIC; Start 01/17/19 at 18:17 Aspirin (Aspirin) 81 mg DAILY PO Last administered on 01/26/19 07:52; Admin Dose 81 MG; Start 01/17/19 at 18:17 Ferrous Sulfate (Ferrous Sulfate (Ec)) 325 mg WITH MEALS PO Last administered on 01/26/19 16:54; Admin Dose 325 MG; Start 01/17/19 at 18:17 Bisacodyl (Dulcolax Supp) 10 mg DAILY PRN RI CONSTIPATION; Start 01/17/19 at 18:17 Zinc Acetate/ Diphenhydramine (Benadryl 2% Cr) 1 applic Q6H PRN TOP ITCHING Last administered on 01/26/19 07:54; Admin Dose 1 APPLIC; Start 01/19/19 at 16:37 Nystatin/ Triamcinolone Acetonide (Mycolog Cr) 1 applic BID TOP Last administered on 01/27/19 09:27; Admin Dose 1 APPLIC; Start 01/19/19 at 22:41 Epoetin Dae-epbx (RETACRIT(non-esrd)) 20,000 unit Mo@1700 SC Last administered on 01/20/19 18:13; Admin Dose 20,000 UNIT; Start 01/20/19 at 17:00 Furosemide (Lasix) 20 mg DAILY IV Last administered on 01/26/19 07:53; Admin Dose 20 MG; Start 01/21/19 at 09:00 IV Flush (NS 10 ml) 10 ml PRN PRN IV IV PROTOCOL; Start 01/20/19 at 14:30 Cyanocobalamin (Vitamin B12 Inj) 1,000 mcg Q7D IM ; Start 02/03/19 at 09:00 Dextrose 1,000 ml @ 40 mls/hr Q24H IV Last administered on 01/26/19at 13:37; Admin Dose 40 MLS/HR; Start 01/26/19 at 13:00 Metoprolol Tartrate (Lopressor) 25 mg BID PO Last administered on 01/26/19at 20:34; Admin Dose 25 MG; Start 01/26/19 at 21:00 Metoprolol Tartrate (Lopressor) 5 mg Q4H PRN IV HR>110 Hold SBP<100; Start 01/26/19 at 14:30 OREN MARSH M.D. January 27, 2019 09:50
--- NOTE | 2019-01-27 11:07 | PN ---
Date/Time of Note Date/Time of Note DATE: 01/27/19 TIME: 11:07 Assessment/Plan VTE Prophylaxis Risk score (from [facility] – [place], [place])>0 risk: 6 SCD applied (from [facility] – [place], [place]): No SCD contraindicated: low risk/ambulating Pharmacological prophylaxis: NA/contraindicated Pharm contraindication: low risk/ambulating Lines/Catheters IV [facility]from [facility] Saline Lock Urinary Cath still in place: Yes Reason Cath still needed: urinary retention Assessment/Plan Hospital Course Hospital Course 1. Sepsis, WBC elevated , lactic acidosis now hypotensive 2. Severe anemia 3. Chronic renal failure likely secondary to sepsis, improved, normal c reatinine 4. Hypertension. 5. Hyperlipidemia. 6. Hypothyroidism. 7. Normocytic normochromic chronic anemia with recent hemoglobin drop. 8. Bilateral groin cellulitis more likely associated with mateus, patches in groin and axilla bilaterally. skin peeling 9. History of rheumatoid arthritis with joint deformities. 10. Diabetes type 2. 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 Peripheral vascular disease. 13. Chronic a.fib 14. right arm edema 15. Neoplasm per CT abdomen. 4.3 cm cystic lesion along the pancreas body, enlarged since 10/10/2012 (previously 2.4 cm). 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 16. Possible allergic skin reaction 17. altered mental status delirium vs stroke however seizure activity was noted ?? seizures waxing and waning Assessment/Plan - stat CT head - icu transfer - neuro checks - ABG - iv VANCO? SPOKE TO Id About gram neg coverage - neuro consult> ativan , EEG ordered -spoke to Fay Sarabia at bedside - pressor support - cw D10 - fu Neuro recs -on ASA, statin - NG - spoke to Dr Mcginnis > central line -oncology consul dr Lorenzo aware:he said Ca 19-9 is negative indicating unlikely malignant. This may be a pseudocyst or a precancerous pancreatic lesion. It has been growing in size but patient is asymptomatic. EUS with biopsy is recommended and can either be done inpatient or outpatient setting. The patient at this time is unlikely a candidate for a Whipple surgery however. -skin care Result Diagram: 01/27/19 1038 01/27/19 0630 Results 24hrs Laboratory Tests Test 01/26/19 11:55 5/5/19 15:30 01/26/19 16:54 01/26/19 20:32 Bedside Glucose 88 128 139 Urine Color YELLOW Urine Clarity SLIGHTLY CLOUDY A Urine pH 5.0 Urine Specific 1.013 [place] Urine Ketones NEGATIVE Urine Nitrite NEGATIVE Urine Bilirubin NEGATIVE Urine NEGATIVE Urobilinogen Urine Leukocyte 1+ H Esterase Urine 7 H Microscopic RBC Urine 9 H Microscopic WBC Urine Squamous FEW Epithelial Cells Urine Bacteria FEW A Urine Hyaline FEW A Casts Urine Mucus FEW A Urine Hemoglobin NEGATIVE Urine Glucose NEGATIVE Urine Total NEGATIVE Protein Test 01/27/19 06:30 01/27/19 08:29 01/27/19 10:19 01/27/19 10:24 White Blood 12.9 H Count Red Blood Count 2.81 L Hemoglobin 8.2 L Hematocrit 25.6 L Mean Corpuscular 91.1 Volume Mean Corpuscular 29.2 Hemoglobin Mean Corpuscular 32.0 Hemoglobin June nt Red Cell 18.0 H Distribution Width Platelet Count 195 Mean Platelet 10.6 H Volume Immature 1.200 H Granulocytes % Neutrophils % 81.6 H Segmented 68 Neutrophils % (Manual) Band Neutrophils 19 H % (Manual) Lymphocytes % 11.9 L Lymphocytes % 7 L (Manual) Monocytes % 4.4 Monocytes % 3 (Manual) Eosinophils % 0.5 Eosinophils % 1 (Manual) Basophils % 0.4 Metamyelocytes % 2 H (manual) Nucleated Red 1 H Blood Cells % Immature 0.150 H Granulocytes # Neutrophils # 10.5 H Neutrophils # 9.1 H (Manual) Band Neutrophils 2.4 H # Lymphocytes 0.9 (Manual) Lymphocytes # 1.5 Monocytes # 0.6 Monocytes # 0.3 (Manual) Eosinophils # 0.1 Basophils # 0.1 Metamyelocytes # 0.2 H Nucleated Red 0.0 Blood Cells # Platelet NORMAL Estimate Giant Platelets 3 H Polychromasia 1+ Hypochromasia 1+ Poikilocytosis 2+ Anisocytosis 2+ Macrocytosis 2+ Target Cells 1+ Sodium Level 140 Potassium Level 3.8 Chloride Level 105 Carbon Dioxide 25 Level Anion Gap 10 Blood Urea 37 H Nitrogen Creatinine 1.20 Est Glomerular Filtrat Rate mL/min Glucose Level 148 # Calcium Level 8.3 L Bedside Glucose 157 113 Blood Gas Blood arterial Specimen Source Arterial Blood 01/27/2019 10:30:2 Date Drawn 9 AM Arterial Blood 7.285 *L pH (Temp corrected) Arterial Blood 51.4 H pCO2 (Temp correct) Arterial Blood 147.3 H pO2 (Temp corrected) Arterial Blood 23.9 HCO3 Arterial Blood -2.8 Base Excess Arterial Blood 98.3 Oxygen Saturatio n Manuel Test N/A Arterial Blood Right Brachial Gas Puncture Site Arterial 0.3 Blood Carboxyhem oglobin Arterial Blood 0.5 Methemoglobin Blood Gas A-a O2 28.0 H Differential Oxyhemoglobin 97.5 Percent Blood Gas 37.0 Temperature Blood Gas NASAL CANNULA Modality FiO2 33.0 Blood Gas JENNIFER WONG Critical Value Read Back Blood Gas Notified Whom Blood Gas 01/27/2019 10:47:5 Notified Time 6 AM Test 01/27/19 10:38 White Blood 12.8 H Count Red Blood Count 2.69 L Hemoglobin 7.9 L Hematocrit 25.4 L Mean Corpuscular 94.4 Volume Mean Corpuscular 29.4 Hemoglobin Mean Corpuscular 31.1 L Hemoglobin June nt Red Cell 18.2 H Distribution Width Platelet Count 175 Mean Platelet 10.9 H Volume Immature 1.100 H Granulocytes % Neutrophils % 82.6 H Lymphocytes % 11.0 L Monocytes % 4.9 Eosinophils % 0.2 Basophils % 0.2 Nucleated Red 0.2 H Blood Cells % Immature 0.140 H Granulocytes # Neutrophils # 10.6 H Lymphocytes # 1.4 Monocytes # 0.6 Eosinophils # 0.0 Basophils # 0.0 Nucleated Red 0.0 Blood Cells # Subjective 24 Hr Interval Summary Free Text/Dictation pt was found altererd this am had rapid jerky movements SBP in 80s Neuorlogy was reconsult stat CT head Exam/Review of Systems Exam Vitals Vital Signs Date Temp Pulse Resp B/P (MAP) Pulse Ox O2 O2 Flow FiO2 Time Delivery Rate 01/27/19 80 20 80/37 (51) 99 Nasal 2.0 09:46 Cannula 01/27/19 97.9 07:49 Intake and Output 01/26/19 01/26/19 01/27/19 1515:00 23:00 07:00 IntakeIntake Total 380 ml 530 ml OutputOutput Total 500 ml 200 ml BalanceBalance -120 ml 330 ml Exam altered, jerky movements rt pupil dilated, left pupil sluggish Constitutional: frail Respiratory: diminished breath sounds Cardiovascular: irregular rhythm Gastrointestinal: soft Genitourinary - Male: other (rinaldi) Skin: other (peeling) improved Results Results 24hrs Laboratory Tests Test 01/26/19 11:55 01/26/19 15:30 01/26/19 16:54 01/26/19 20:32 Bedside Glucose 88 128 139 Urine Color YELLOW Urine Clarity SLIGHTLY CLOUDY A Urine pH 5.0 Urine Specific 1.013 [place] Urine Ketones NEGATIVE Urine Nitrite NEGATIVE Urine Bilirubin NEGATIVE Urine NEGATIVE Urobilinogen Urine Leukocyte 1+ H Esterase Urine 7 H Microscopic RBC Urine 9 H Microscopic WBC Urine Squamous FEW Epithelial Cells Urine Bacteria FEW A Urine Hyaline FEW A Casts Urine Mucus FEW A Urine Hemoglobin NEGATIVE Urine Glucose NEGATIVE Urine Total NEGATIVE Protein Test 01/27/19 06:30 01/27/19 08:29 01/27/19 10:19 01/27/19 10:24 White Blood 12.9 H Count Red Blood Count 2.81 L Hemoglobin 8.2 L Hematocrit 25.6 L Mean Corpuscular 91.1 Volume Mean Corpuscular 29.2 Hemoglobin Mean Corpuscular 32.0 Hemoglobin June nt Red Cell 18.0 H Distribution Width Platelet Count 195 Mean Platelet 10.6 H Volume Immature 1.200 H Granulocytes % Neutrophils % 81.6 H Segmented 68 Neutrophils % (Manual) Band Neutrophils 19 H % (Manual) Lymphocytes % 11.9 L Lymphocytes % 7 L (Manual) Monocytes % 4.4 Monocytes % 3 (Manual) Eosinophils % 0.5 Eosinophils % 1 (Manual) Basophils % 0.4 Metamyelocytes % 2 H (manual) Nucleated Red 1 H Blood Cells % Immature 0.150 H Granulocytes # Neutrophils # 10.5 H Neutrophils # 9.1 H (Manual) Band Neutrophils 2.4 H # Lymphocytes 0.9 (Manual) Lymphocytes # 1.5 Monocytes # 0.6 Monocytes # 0.3 (Manual) Eosinophils # 0.1 Basophils # 0.1 Metamyelocytes # 0.2 H Nucleated Red 0.0 Blood Cells # Platelet NORMAL Estimate Giant Platelets 3 H Polychromasia 1+ Hypochromasia 1+ Poikilocytosis 2+ Anisocytosis 2+ Macrocytosis 2+ Target Cells 1+ Sodium Level 140 Potassium Level 3.8 Chloride Level 105 Carbon Dioxide 25 Level Anion Gap 10 Blood Urea 37 H Nitrogen Creatinine 1.20 Est Glomerular Filtrat Rate mL/min Glucose Level 148 # Calcium Level 8.3 L Bedside Glucose 157 113 Blood Gas Blood arterial Specimen Source Arterial Blood 01/27/2019 10:30:2 Date Drawn 9 AM Arterial Blood 7.285 *L pH (Temp corrected) Arterial Blood 51.4 H pCO2 (Temp correct) Arterial Blood 147.3 H pO2 (Temp corrected) Arterial Blood 23.9 HCO3 Arterial Blood -2.8 Base Excess Arterial Blood 98.3 Oxygen Saturatio n Manuel Test N/A Arterial Blood Right Brachial Gas Puncture Site Arterial 0.3 Blood Carboxyhem oglobin Arterial Blood 0.5 Methemoglobin Blood Gas A-a O2 28.0 H Differential Oxyhemoglobin 97.5 Percent Blood Gas 37.0 Temperature Blood Gas NASAL CANNULA Modality FiO2 33.0 Blood Gas JENNIFER WONG Critical Value Read Back Blood Gas CW Notified Whom Blood Gas 01/27/2019 10:47:5 Notified Time 6 AM Test 01/27/19 10:38 White Blood 12.8 H Count Red Blood Count 2.69 L Hemoglobin 7.9 L Hematocrit 25.4 L Mean Corpuscular 94.4 Volume Mean Corpuscular 29.4 Hemoglobin Mean Corpuscular 31.1 L Hemoglobin June nt Red Cell 18.2 H Distribution Width Platelet Count 175 Mean Platelet 10.9 H Volume Immature 1.100 H Granulocytes % Neutrophils % 82.6 H Lymphocytes % 11.0 L Monocytes % 4.9 Eosinophils % 0.2 Basophils % 0.2 Nucleated Red 0.2 H Blood Cells % Immature 0.140 H Granulocytes # Neutrophils # 10.6 H Lymphocytes # 1.4 Monocytes # 0.6 Eosinophils # 0.0 Basophils # 0.0 Nucleated Red 0.0 Blood Cells # Medications Medication Current Medications Docusate Sodium (Colace) 100 mg BID PO Last administered on 01/26/19at 20:33; Admin Dose 100 MG; Start 01/17/19 at 18:17 Lactulose (Enulose) 20 gm DAILY PRN PO CONSTIPATION; Start 01/17/19 at 18:17 Acetaminophen (Tylenol Tab) 650 mg Q4H PRN PO PAIN Last administered on 01/23/19at 22:48; Admin Dose 650 MG; Start 01/17/19 at 18:17 Miscellaneous Information (Pending Santyl Order For Wound Care) This patient ramirez... PRN PRN XX WOUND CARE; Start 01/17/19 at 18:17 Diagnostic Test (Pha) (Accu-Chek) 1 ea AC MEALS AND BEDTIME XX Last administered on 01/25/19 17:23; Admin Dose 1 EA; Start 01/17/19 at 18:17 Diagnostic Test (Pha) (Accu-Chek) 1 ea 02 XX Last administered on 01/22/19 02:0 0; Admin Dose 1 EA; Start 01/17/19 at 18:17 Albuterol/ Ipratropium (Duoneb) 3 ml Q2H RESP THERAPY PRN HHN SHORTNESS OF BREATH; Start 01/17/19 at 18:17 Atorvastatin Calcium (Lipitor) 40 mg QHS PO Last administered on 01/26/19 20:33; Admin Dose 40 MG; Start 01/17/19 at 18:17 Bisacodyl (Dulcolax) 10 mg BID PRN PO CONSTIPATION; Start 01/17/19 at 18:17 Folic Acid (Folic Acid) 1 mg DAILY PO Last administered on 01/26/19 07:52; Admin Dose 1 MG; Start 01/17/19 at 18:17 Insulin Aspart (Novolog Insulin Pen) NOVOLOG *MILD* ALGORITHM WITH MEALS BEDTIME SC Last administered on 01/27/19 08:36; Admin Dose 1 UNIT; Start 01/17/19 at 18:17 Latanoprost (Xalatan) 1 drop HS BOTH EYES Last administered on 01/26/19 20:41; Admin Dose 1 DROP; Start 01/17/19 at 18:17 Levothyroxine Sodium (Synthroid) 125 mcg BEFORE BREAKFAST PO Last administered on 01/27/19 05:37; Admin Dose 125 MCG; Start 01/17/19 at 18:17 Nitroglycerin (Nitroglycerin (Sl Tab) 0.4 Mg) 0.4 tab Q5M PRN SL CHEST PAIN; Start 01/17/19 at 18:17 Nystatin (Nystatin Powder) 1 applic BID TOP Last administered on 01/27/19 09:27; Admin Dose 1 APPLIC; Start 01/17/19 at 18:17 Pantoprazole (Protonix Tab) 40 mg DAILY@06 PO Last administered on 01/27/19 05:37; Admin Dose 40 MG; Start 01/17/19 at 18:17 IV Flush (NS 3 ml) 3 ml PER PROTOCOL IV ; Start 01/17/19 at 18:17 Terazosin HCl (Hytrin) 10 mg HS PO Last administered on 01/26/19 20:35; Admin Dose 10 MG; Start 01/17/19 at 18:17 Miscellaneous Information 1 ea NOTE XX ; Start 01/17/19 at 18:17 Glucose (Glutose) 15 gm Q15M PRN PO DECREASED GLUCOSE; Start 01/17/19 at 18:17 Glucose (Glutose) 22.5 gm Q15M PRN PO DECREASED GLUCOSE; Start 01/17/19 at 18:17 Dextrose (D50w Syringe) 25 ml Q15M PRN IV DECREASED GLUCOSE; Start 01/17/19 at 18:17 Dextrose (D50w Syringe) 50 ml Q15M PRN IV DECREASED GLUCOSE; Start 01/17/19 at 18:17 Glucagon (Glucagen) 1 mg Q15M PRN IM DECREASED GLUCOSE; Start 01/17/19 at 18:17 Glucose (Glutose) 15 gm Q15M PRN BUCCAL DECREASED GLUCOSE; Start 01/17/19 at 18:17 Multivitamins Therapeutic (Theragran) 1 tab DAILY PO Last administered on 01/26/19 07:53; Admin Dose 1 TAB; Start 01/17/19 at 18:17 Zinc Sulfate (Zinc Sulfate) 220 mg DAILY PO Last administered on 01/26/19 07:52; Admin Dose 220 MG; Start 01/17/19 at 18:17 Ascorbic Acid (Vitamin C) 250 mg DAILY PO Last administered on 01/26/19 07:53; Admin Dose 250 MG; Start 01/17/19 at 18:17 Albuterol/ Ipratropium (Duoneb) 3 ml Q6H RESP THERAPY HHN Last administered on 01/27/19 09:17; Admin Dose 3 ML; Start 01/17/19 at 18:17 Multi-Ingredient Ointment (Aquaphor Oint 52.5 Gm) 1 applic BID TOP Last admin istered on 01/27/19 09:27; Admin Dose 1 APPLIC; Start 01/17/19 at 18:17 Aspirin (Aspirin) 81 mg DAILY PO Last administered on 01/26/19 07:52; Admin Dose 81 MG; Start 01/17/19 at 18:17 Ferrous Sulfate (Ferrous Sulfate (Ec)) 325 mg WITH MEALS PO Last administered on 01/26/19 16:54; Admin Dose 325 MG; Start 01/17/19 at 18:17 Bisacodyl (Dulcolax Supp) 10 mg DAILY PRN MS CONSTIPATION; Start 01/17/19 at 18:17 Zinc Acetate/ Diphenhydramine (Benadryl 2% Cr) 1 applic Q6H PRN TOP ITCHING Last administered on 01/26/19 07:54; Admin Dose 1 APPLIC; Start 01/19/19 at 16:37 Nystatin/ Triamcinolone Acetonide (Mycolog Cr) 1 applic BID TOP Last administered on 01/27/19at 09:27; Admin Dose 1 APPLIC; Start 01/19/19 at 22:41 Epoetin Dae-epbx (RETACRIT(non-esrd)) 20,000 unit Mo@1700 SC Last administered on 01/20/19at 18:13; Admin Dose 20,000 UNIT; Start 01/20/19 at 17:00 Furosemide (Lasix) 20 mg DAILY IV Last administered on 01/26/19 07:53; Admin Dose 20 MG; Start 01/21/19 at 09:00 IV Flush (NS 10 ml) 10 ml PRN PRN IV IV PROTOCOL; Start 01/20/19 at 14:30 Cyanocobalamin (Vitamin B12 Inj) 1,000 mcg Q7D IM ; Start 02/03/19 at 09:00 Dextrose 1,000 ml @ 40 mls/hr Q24H IV Last administered on 01/26/19at 13:37; Admin Dose 40 MLS/HR; Start 01/26/19 at 13:00 Metoprolol Tartrate (Lopressor) 25 mg BID PO Last administered on 01/26/19at 20:34; Admin Dose 25 MG; Start 01/26/19 at 21:00 Metoprolol Tartrate (Lopressor) 5 mg Q4H PRN IV HR>110 Hold SBP<100; Start 01/26/19 at 14:30 IVAN AKHTAR MD January 27, 2019 11:07
[2019-01-27] MEDS ORDERED: VANCOMYCIN IV PER PHARMACY XX SCH (12:00)
[2019-01-27] MEDS ORDERED: CEFEPIME 2GM/50 ML (PMX) 50 ML IVPB SCH (12:00)
[2019-01-27] MEDS ORDERED: LIDOCAINE 1% (MPF) 5 ML VIAL SC ONE (12:30)
--- NOTE | 2019-01-27 12:46 | CONS ---
Assessment/Plan Assessment/Plan Hospital Course (Demo Recall) IMPRESSION: 1. Atrial fibrillation, currently rate controlled.-off systemic anticoagulation due to anemia. ON asa only due to anemia 2. Possible congestive heart failure by chest x-ray, which will be diastolic, acute on chronic by most recent echo with an EF of 60%. 3. Tricuspid regurgitation, moderate by most recent echo. 4. Acute on chronic renal failure-mild worsening 5. Possible pneumonia. 6. History of coronary artery disease, status post coronary artery bypass graft surgery. 7. Dyslipidemia. 8. Rheumatoid arthritis. 9. Groin cellulitis. 10. Anemia-worsening again today requiring transfusions PRBC's.Now post-op s/p endoscopy 11. Diabetes mellitus. 12. Sepsis/leukocytosis 14. abdominal mass 15. 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 -Given negatvive HEad CT and after discussion with GI saying ok to styart will thus start SQ lovenox daily Consultation Date/Type/Reason Admit Date/Time Jan 17, 2019 at 15:58 Initial Consult Date 01/18/19 Type of Consult Cardiology Reason for Consultation AF Requesting Provider: IVAN AKHTAR MD Date/Time of Note DATE: 01/27/19 TIME: 12:42 Exam/Review of Systems Vital Signs Vitals Vital Signs Date Temp Pulse Resp B/P (MAP) Pulse Ox O2 O2 Flow FiO2 Time Delivery Rate 01/27/19 94 100 30 12:34 01/27/19 20 80/37 (51) Nasal 2.0 09:46 Cannula 01/27/19 97.9 07:49 Intake and Output 01/26/19 01/26/19 01/27/19 1414:59 22:59 06:59 IntakeIntake Total 380 ml 530 ml OutputOutput Total 500 ml 200 ml BalanceBalance -120 ml 330 ml Exam Exam Review of Systems: CONSTITUTIONAL: No fevers, chills. PULMONARY: No sob CARDIOVASCULAR: No chest pain/palpitations GASTROINTESTINAL: No nausea/vomiting. GENITOURINARY: No hematuria/dysuria. MUSCULOSKELETAL: No myagias/arthalgias. PSYCHIATRIC: The patient denies depression. NEUROLOGIC: No weakness Constitutional: other (encephalopathic) Psych: no complaints Head: normocephalic Eyes: other (BIPAP in place) Neck: supple, jvd (9 cm water) Respiratory: diminished breath sounds (at bases/B) Cardiovascular: irregular rhythm Gastrointestinal: soft, non-tender Musculoskeletal: muscle weakness (generalized) Extremities: other (generalized skin breakdown) Neurological: confused Labs Result Diagram: 01/27/19 1038 01/27/19 1038 Results 24hrs Laboratory Tests Test 01/26/19 15:30 01/26/19 16:54 01/26/19 20:32 01/27/19 06:30 Urine Color YELLOW Urine Clarity SLIGHTLY CLOUDY A Urine pH 5.0 Urine Specific 1.013 [place] Urine Ketones NEGATIVE Urine Nitrite NEGATIVE Urine Bilirubin NEGATIVE Urine NEGATIVE Urobilinogen Urine Leukocyte 1+ H Esterase Urine 7 H Microscopic RBC Urine 9 H Microscopic WBC Urine Squamous FEW Epithelial Cells Urine Bacteria FEW A Urine Hyaline FEW A Casts Urine Mucus FEW A Urine Hemoglobin NEGATIVE Urine Glucose NEGATIVE Urine Total NEGATIVE Protein Bedside Glucose 128 139 White Blood 12.9 H Count Red Blood Count 2.81 L Hemoglobin 8.2 L Hematocrit 25.6 L Mean Corpuscular 91.1 Volume Mean Corpuscular 29.2 Hemoglobin Mean Corpuscular 32.0 Hemoglobin June nt Red Cell 18.0 H Distribution Width Platelet Count 195 Mean Platelet 10.6 H Volume Immature 1.200 H Granulocytes % Neutrophils % 81.6 H Segmented 68 Neutrophils % (Manual) Band Neutrophils 19 H % (Manual) Lymphocytes % 11.9 L Lymphocytes % 7 L (Manual) Monocytes % 4.4 Monocytes % 3 (Manual) Eosinophils % 0.5 Eosinophils % 1 (Manual) Basophils % 0.4 Metamyelocytes % 2 H (manual) Nucleated Red 1 H Blood Cells % Immature 0.150 H Granulocytes # Neutrophils # 10.5 H Neutrophils # 9.1 H (Manual) Band Neutrophils 2.4 H # Lymphocytes 0.9 (Manual) Lymphocytes # 1.5 Monocytes # 0.6 Monocytes # 0.3 (Manual) Eosinophils # 0.1 Basophils # 0.1 Metamyelocytes # 0.2 H Nucleated Red 0.0 Blood Cells # Platelet NORMAL Estimate Giant Platelets 3 H Polychromasia 1+ Hypochromasia 1+ Poikilocytosis 2+ Anisocytosis 2+ Macrocytosis 2+ Target Cells 1+ Sodium Level 140 Potassium Level 3.8 Chloride Level 105 Carbon Dioxide 25 Level Anion Gap 10 Blood Urea 37 H Nitrogen Creatinine 1.20 Est Glomerular Filtrat Rate mL/min Glucose Level 148 # Calcium Level 8.3 L Test 01/27/19 08:29 01/27/19 10:19 01/27/19 10:24 01/27/19 10:38 Bedside Glucose 157 113 Blood Gas Blood arterial Specimen Source Arterial Blood 01/27/2019 10:30:2 Date Drawn 9 AM Arterial Blood 7.285 *L pH (Temp corrected) Arterial Blood 51.4 H pCO2 (Temp correct) Arterial Blood 147.3 H pO2 (Temp corrected) Arterial Blood 23.9 HCO3 Arterial Blood -2.8 Base Excess Arterial Blood 98.3 Oxygen Saturatio n Manuel Test N/A Arterial Blood Right Brachial Gas Puncture Site Arterial 0.3 Blood Carboxyhem oglobin Arterial Blood 0.5 Methemoglobin Blood Gas A-a O2 28.0 H Differential Oxyhemoglobin 97.5 Percent Blood Gas 37.0 Temperature Blood Gas NASAL CANNULA Modality FiO2 33.0 Blood Gas JENNIFER WONG Critical Value Read Back Blood Gas CW Notified Whom Blood Gas 01/27/2019 10:47:5 Notified Time 6 AM White Blood 12.8 H Count Red Blood Count 2.69 L Hemoglobin 7.9 L Hematocrit 25.4 L Mean Corpuscular 94.4 Volume Mean Corpuscular 29.4 Hemoglobin Mean Corpuscular 31.1 L Hemoglobin June nt Red Cell 18.2 H Distribution Width Platelet Count 175 Mean Platelet 10.9 H Volume Immature 1.100 H Granulocytes % Neutrophils % 82.6 H Lymphocytes % 11.0 L Monocytes % 4.9 Eosinophils % 0.2 Basophils % 0.2 Nucleated Red 0.2 H Blood Cells % Immature 0.140 H Granulocytes # Neutrophils # 10.6 H Lymphocytes # 1.4 Monocytes # 0.6 Eosinophils # 0.0 Basophils # 0.0 Nucleated Red 0.0 Blood Cells # Sodium Level 140 Potassium Level 3.6 Chloride Level 106 Carbon Dioxide 24 Level Anion Gap 10 Blood Urea 37 H Nitrogen Creatinine 1.30 H Est Glomerular Filtrat Rate mL/min Glucose Level 112 Calcium Level 8.0 L Test 01/27/19 11:09 01/27/19 12:16 Lab Scanned REFERENCE LAB Report Bedside Glucose 136 Medications Medications Current Medications Docusate Sodium (Colace) 100 mg BID PO Last administered on 01/26/19 20:33; Admin Dose 100 MG; Start 01/17/19 at 18:17 Lactulose (Enulose) 20 gm DAILY PRN PO CONSTIPATION; Start 01/17/19 at 18:17 Acetaminophen (Tylenol Tab) 650 mg Q4H PRN PO PAIN Last administered on 01/23/19 22:48; Admin Dose 650 MG; Start 01/17/19 at 18:17 Miscellaneous Information (Pending [facility] Order For Wound Care) This patient ramirez... PRN PRN XX WOUND CARE; Start 01/17/19 at 18:17 Diagnostic Test (Pha) (Accu-Chek) 1 ea AC MEALS AND BEDTIME XX Last administered on 01/27/19 11:00; Admin Dose 1 EA; Start 01/17/19 at 18:17 Diagnostic Test (Pha) (Accu-Chek) 1 ea 02 XX Last administered on 01/22/19 02:00; Admin Dose 1 EA; Start 01/17/19 at 18:17 Albuterol/ Ipratropium (Duoneb) 3 ml Q2H RESP THERAPY PRN HHN SHORTNESS OF BREATH; Start 01/17/19 at 18:17 Atorvastatin Calcium (Lipitor) 40 mg QHS PO Last administered on 01/26/19 20:33; Admin Dose 40 MG; Start 01/17/19 at 18:17 Bisacodyl (Dulcolax) 10 mg BID PRN PO CONSTIPATION; Start 01/17/19 at 18:17 Folic Acid (Folic Acid) 1 mg DAILY PO Last administered on 01/26/19 07:52; Admin Dose 1 MG; Start 01/17/19 at 18:17 Insulin Aspart (Novolog Insulin Pen) NOVOLOG *MILD* ALGORITHM WITH MEALS BEDTIME SC Last administered on 01/27/19 08:36; Admin Dose 1 UNIT; Start at 18:17 Latanoprost (Xalatan) 1 drop HS BOTH EYES Last administered on 01/26/19at 20:41; Admin Dose 1 DROP; Start 01/17/19 at 18:17 Levothyroxine Sodium (Synthroid) 125 mcg BEFORE BREAKFAST PO Last administered on 01/27/19at 05:37; Admin Dose 125 MCG; Start 01/17/19 at 18:17 Nitroglycerin (Nitroglycerin (Sl Tab) 0.4 Mg) 0.4 tab Q5M PRN SL CHEST PAIN; Start 01/17/19 at 18:17 Nystatin (Nystatin Powder) 1 applic BID TOP Last administered on 01/27/19 09:27; Admin Dose 1 APPLIC; Start 01/17/19 at 18:17 Pantoprazole (Protonix Tab) 40 mg DAILY@06 PO Last administered on 01/27/19 05:37; Admin Dose 40 MG; Start 01/17/19 at 18:17 IV Flush (NS 3 ml) 3 ml PER PROTOCOL IV ; Start 01/17/19 at 18:17 Terazosin HCl (Hytrin) 10 mg HS PO Last administered on 01/26/19at 20:35; Admin Dose 10 MG; Start 01/17/19 at 18:17 Miscellaneous Information 1 ea NOTE XX ; Start 01/17/19 at 18:17 Glucose (Glutose) 15 gm Q15M PRN PO DECREASED GLUCOSE; Start 01/17/19 at 18:17 Glucose (Glutose) 22.5 gm Q15M PRN PO DECREASED GLUCOSE; Start 01/17/19 at 18:17 Dextrose (D50w Syringe) 25 ml Q15M PRN IV DECREASED GLUCOSE; Start 01/17/19 at 18:17 Dextrose (D50w Syringe) 50 ml Q15M PRN IV DECREASED GLUCOSE; Start 01/17/19 at 18:17 Glucagon (Glucagen) 1 mg Q15M PRN IM DECREASED GLUCOSE; Start 01/17/19 at 18:17 Glucose (Glutose) 15 gm Q15M PRN BUCCAL DECREASED GLUCOSE; Start 01/17/19 at 18:17 Multivitamins Therapeutic (Theragran) 1 tab DAILY PO Last administered on 01/26/19at 07:53; Admin Dose 1 TAB; Start 01/17/19 at 18:17 Zinc Sulfate (Zinc Sulfate) 220 mg DAILY PO Last administered on 5/5/19at 07:52; Admin Dose 220 MG; Start 01/17/19 at 18:17 Ascorbic Acid (Vitamin C) 250 mg DAILY PO Last administered on 01/26/19 07:53; Admin Dose 250 MG; Start 01/17/19 at 18:17 Albuterol/ Ipratropium (Duoneb) 3 ml Q6H RESP THERAPY HHN Last administered on 01/27/19 09:17; Admin Dose 3 ML; Start 01/17/19 at 18:17 Multi-Ingredient Ointment (Aquaphor Oint 52.5 Gm) 1 applic BID TOP Last administered on 01/27/19 09:27; Admin Dose 1 APPLIC; Start 01/17/19 at 18:17 Aspirin (Aspirin) 81 mg DAILY PO Last administered on 01/26/19 07:52; Admin Dose 81 MG; Start 01/17/19 at 18:17 Ferrous Sulfate (Ferrous Sulfate (Ec)) 325 mg WITH MEALS PO Last administered on 01/26/19 16:54; Admin Dose 325 MG; Start 01/17/19 at 18:17 Bisacodyl (Dulcolax Supp) 10 mg DAILY PRN [place] CONSTIPATION; Start 01/17/19 at 18:17 Zinc Acetate/ Diphenhydramine (Benadryl 2% Cr) 1 applic Q6H PRN TOP ITCHING Last administered on 01/26/19 07:54; Admin Dose 1 APPLIC; Start 01/19/19 at 16:37 Nystatin/ Triamcinolone Acetonide (Mycolog Cr) 1 applic BID TOP Last administered on 01/27/19 09:27; Admin Dose 1 APPLIC; Start 01/19/19 at 22:41 Epoetin Dae-epbx (RETACRIT(non-esrd)) 20,000 unit Mo@1700 SC Last administered on 01/20/19 18:13; Admin Dose 20,000 UNIT; Start 01/20/19 at 17:00 IV Flush (NS 10 ml) 10 ml PRN PRN IV IV PROTOCOL; Start 01/20/19 at 14:30 Cyanocobalamin (Vitamin B12 Inj) 1,000 mcg Q7D IM ; Start 02/03/19 at 09:00 Dextrose 1,000 ml @ 40 mls/hr Q24H IV Last administered on 5/5/19at 13:37; Admin Dose 40 MLS/HR; Start 01/26/19 at 13:00 Metoprolol Tartrate (Lopressor) 25 mg BID PO Last administered on 01/26/19at 20:34; Admin Dose 25 MG; Start 01/26/19 at 21:00 Metoprolol Tartrate (Lopressor) 5 mg Q4H PRN IV HR>110 Hold SBP<100; Start 01/26/19 at 14:30 Furosemide (Lasix) 40 mg Q12 IV ; Start 01/27/19 at 21:00; Status UNV Cefepime HCl 50 ml @ 100 mls/hr Q12 IVPB ; Start 01/27/19 at 12:00; Status UNV Vancomycin HCl (Vanco Iv Per Pharmacy) VANCOMYCIN PER PHARMACY PER PROTOCOL XX ; Start 01/27/19 at 12:00; Status UNV Norepinephrine 250 ml @ 1.875 mls/ hr TITRATE IV ; Start 01/27/19 at 12:30; Status UNV Lidocaine (Xylocaine 1% (Mpf)) 5 ml ONCE ONCE SC ; Start 01/27/19 at 12:30; Stop 01/27/19 at 12:31; Status UNV Methylprednisolone Sodium Succinate (Solu-Medrol) 40 mg Q8 IV ; Start 01/27/19 at 14:00; Status UNV MARJORIE JAIN January 27, 2019 12:46
[2019-01-27] MEDS: DEXTROSE 10% 1,000 ML IV SCH (13:00)
--- NOTE | 2019-01-27 14:47 | CONS ---
Assessment/Plan Assessment/Plan Hospital Course (Demo Recall) Patient was transferred to ICU secondary to seizure and altered mental status he also was hypothermic currently in no distress on bear hugger, lethargic WBC 12.8 H&H 7.9 and 25.4 platelets 175 neutrophils 82.6 BUN 37 creatinine 1.30 Chest x-ray this morning revealed increased airspace opacities. Please see full report in the chart. CT of the brain showed old right parietal and temporal l obe infarct. Old superior right cerebellum infarct no acute intracranial bleed Antimicrobials: Vancomycin, cefepime Allergy: Penicillin, sulfa Physical examination: Obese well-developed chronically ill-appearing - [place] man who is in no distress. Head atraumatic normocephalic sclera no nicteric. Neck is supple chest rise symmetrical breath sounds diminished bases. Heart: S1-S2. Abdomen obese soft bowel sounds present extremities without cyanosis, bilateral edema Assessment: 1. Acute encephalopathy, status post seizure 2. Possible recurrent pneumonia 3. Coronary artery disease/history of CABG 4. Advanced rheumatoid arthritis 5. Chronic atrial fibrillation 6. Diabetes 7. BPH 8. Coag negative staph bacteremia consistent with contaminant 9. Acute on chronic anemia===> s/p EGD/colonoscopy 01/09/19 10. Status post right epididymitis 11. Pancreatic lesion per CT, unlikely neoplasm per oncology notes 12. History of CVA Plan: Change cefepime to aztreonam, add Flagyl for anaerobic coverage, continue Vanco, follow chest x-ray, pulmonary neurology recommendations, prognosis guarded Consultation Date/Type/Reason Admit Date/Time Jan 17, 2019 at 15:58 Initial Consult Date 01/18/19 Type of Consult id Requesting Provider: IVAN AKHTAR MD Date/Time of Note DATE: 01/27/19 TIME: 14:44 Exam/Review of Systems Exam Vitals Vital Signs Date Temp Pulse Resp B/P (MAP) Pulse Ox O2 O2 Flow FiO2 Time Delivery Rate 01/27/19 88 100 30 14:25 01/27/19 21 74/50 (58) BIPAP 13:15 01/27/19 91.2 2.0 12:15 Intake and Output 01/26/19 01/26/19 01/27/19 1515:00 23:00 07:00 IntakeIntake Total 380 ml 530 ml OutputOutput Total 500 ml 200 ml BalanceBalance -120 ml 330 ml Results Result Diagram: 01/27/19 1038 01/27/19 1038 Results 24hrs Laboratory Tests Test 01/26/19 15:30 01/26/19 16:54 01/26/19 20:32 01/27/19 06:30 Urine Color YELLOW Urine Clarity SLIGHTLY CLOUDY A Urine pH 5.0 Urine Specific 1.013 [place] Urine Ketones NEGATIVE Urine Nitrite NEGATIVE Urine Bilirubin NEGATIVE Urine NEGATIVE Urobilinogen Urine Leukocyte 1+ H Esterase Urine 7 H Microscopic RBC Urine 9 H Microscopic WBC Urine Squamous FEW Epithelial Cells Urine Bacteria FEW A Urine Hyaline FEW A Casts Urine Mucus FEW A Urine Hemoglobin NEGATIVE Urine Glucose NEGATIVE Urine Total NEGATIVE Protein Bedside Glucose 128 139 White Blood 12.9 H Count Red Blood Count 2.81 L Hemoglobin 8.2 L Hematocrit 25.6 L Mean Corpuscular 91.1 Volume Mean Corpuscular 29.2 Hemoglobin Mean Corpuscular 32.0 Hemoglobin June nt Red Cell 18.0 H Distribution Width Platelet Count 195 Mean Platelet 10.6 H Volume Immature 1.200 H Granulocytes % Neutrophils % 81.6 H Segmented 68 Neutrophils % (Manual) Band Neutrophils 19 H % (Manual) Lymphocytes % 11.9 L Lymphocytes % 7 L (Manual) Monocytes % 4.4 Monocytes % 3 (Manual) Eosinophils % 0.5 Eosinophils % 1 (Manual) Basophils % 0.4 Metamyelocytes % 2 H (manual) Nucleated Red 1 H Blood Cells % Immature 0.150 H Granulocytes # Neutrophils # 10.5 H Neutrophils # 9.1 H (Manual) Band Neutrophils 2.4 H # Lymphocytes 0.9 (Manual) Lymphocytes # 1.5 Monocytes # 0.6 Monocytes # 0.3 (Manual) Eosinophils # 0.1 Basophils # 0.1 Metamyelocytes # 0.2 H Nucleated Red 0.0 Blood Cells # Platelet NORMAL Estimate Giant Platelets 3 H Polychromasia 1+ Hypochromasia 1+ Poikilocytosis 2+ Anisocytosis 2+ Macrocytosis 2+ Target Cells 1+ Sodium Level 140 Potassium Level 3.8 Chloride Level 105 Carbon Dioxide 25 Level Anion Gap 10 Blood Urea 37 H Nitrogen Creatinine 1.20 Est Glomerular Filtrat Rate mL/min Glucose Level 148 # Calcium Level 8.3 L Test 01/27/19 08:29 01/27/19 10:19 01/27/19 10:24 01/27/19 10:38 Bedside Glucose 157 113 Blood Gas Blood arterial Specimen Source Arterial Blood 01/27/2019 10:30:2 Date Drawn 9 AM Arterial Blood 7.285 *L pH (Temp corrected) Arterial Blood 51.4 H pCO2 (Temp correct) Arterial Blood 147.3 H pO2 (Temp corrected) Arterial Blood 23.9 HCO3 Arterial Blood -2.8 Base Excess Arterial Blood 98.3 Oxygen Saturatio n Manuel Test N/A Arterial Blood Right Brachial Gas Puncture Site Arterial 0.3 Blood Carboxyhem oglobin Arterial Blood 0.5 Methemoglobin Blood Gas A-a O2 28.0 H Differential Oxyhemoglobin 97.5 Percent Blood Gas 37.0 Temperature Blood Gas NASAL CANNULA Modality FiO2 33.0 Blood Gas JENNIFER WONG Critical Value Read Back Blood Gas CW Notified Whom Blood Gas 01/27/2019 10:47:5 Notified Time 6 AM White Blood 12.8 H Count Red Blood Count 2.69 L Hemoglobin 7.9 L Hematocrit 25.4 L Mean Corpuscular 94.4 Volume Mean Corpuscular 29.4 Hemoglobin Mean Corpuscular 31.1 L Hemoglobin June nt Red Cell 18.2 H Distribution Width Platelet Count 175 Mean Platelet 10.9 H Volume Immature 1.100 H Granulocytes % Neutrophils % 82.6 H Segmented 66 Neutrophils % (Manual) Band Neutrophils 25 H % (Manual) Lymphocytes % 11.0 L Lymphocytes % 4 L (Manual) Reactive 1 H Lymphocytes % (Manual) Monocytes % 4.9 Monocytes % 3 (Manual) Eosinophils % 0.2 Basophils % 0.2 Myelocytes % 1 H (Manual) Nucleated Red 0.2 H Blood Cells % Immature 0.140 H Granulocytes # Neutrophils # 10.6 H Neutrophils # 8.9 H (Manual) Band Neutrophils 3.2 H # Lymphocytes 0.5 L (Manual) Lymphocytes # 1.4 Reactive 0.1 H Lymphocytes # Monocytes # 0.6 Monocytes # 0.3 (Manual) Eosinophils # 0.0 Basophils # 0.0 Myelocytes # 0.1 H Nucleated Red 0.0 Blood Cells # Platelet NORMAL Estimate Giant Platelets 1 H Polychromasia 1+ Hypochromasia 1+ Poikilocytosis 2+ Anisocytosis 2+ Macrocytosis 2+ Target Cells 1+ Sodium Level 140 Potassium Level 3.6 Chloride Level 106 Carbon Dioxide 24 Level Anion Gap 10 Blood Urea 37 H Nitrogen Creatinine 1.30 H Est Glomerular Filtrat Rate mL/min Glucose Level 112 Calcium Level 8.0 L Test 01/27/19 11:09 01/27/19 12:16 Lab Scanned REFERENCE LAB Report Bedside Glucose 136 Medications Medication Current Medications Docusate Sodium (Colace) 100 mg BID PO Last administered on 01/26/19 20:33; A dmin Dose 100 MG; Start 01/17/19 at 18:17 Lactulose (Enulose) 20 gm DAILY PRN PO CONSTIPATION; Start 01/17/19 at 18:17 Acetaminophen (Tylenol Tab) 650 mg Q4H PRN PO PAIN Last administered on 01/23/19 t 22:48; Admin Dose 650 MG; Start 01/17/19 at 18:17 Miscellaneous Information (Pending [facility] Order For Wound Care) This patient ramirez... PRN PRN XX WOUND CARE; Start 01/17/19 at 18:17 Diagnostic Test (Pha) (Accu-Chek) 1 ea AC MEALS AND BEDTIME XX Last administered on 01/27/19 11:00; Admin Dose 1 EA; Start 01/17/19 at 18:17 Diagnostic Test (Pha) (Accu-Chek) 1 ea 02 XX Last administered on 01/22/19 02:00; Admin Dose 1 EA; Start 01/17/19 at 18:17 Albuterol/ Ipratropium (Duoneb) 3 ml Q2H RESP THERAPY PRN HHN SHORTNESS OF BREATH; Start 01/17/19 at 18:17 Atorvastatin Calcium (Lipitor) 40 mg QHS PO Last administered on 01/26/19 20:33; Admin Dose 40 MG; Start 01/17/19 at 18:17 Bisacodyl (Dulcolax) 10 mg BID PRN PO CONSTIPATION; Start 01/17/19 at 18:17 Folic Acid (Folic Acid) 1 mg DAILY PO Last administered on 01/26/19 07:52; Admin Dose 1 MG; Start 01/17/19 at 18:17 Insulin Aspart (Novolog Insulin Pen) NOVOLOG *MILD* ALGORITHM WITH MEALS BEDTIME SC Last administered on 01/27/19 08:36; Admin Dose 1 UNIT; Start 01/17/19 at 18:17 Latanoprost (Xalatan) 1 drop HS BOTH EYES Last administered on 01/26/19 20:41; Admin Dose 1 DROP; Start 01/17/19 at 18:17 Levothyroxine Sodium (Synthroid) 125 mcg BEFORE BREAKFAST PO Last administered on 01/27/19 05:37; Admin Dose 125 MCG; Start 01/17/19 at 18:17 Nitroglycerin (Nitroglycerin (Sl Tab) 0.4 Mg) 0.4 tab Q5M PRN SL CHEST PAIN; Start 01/17/19 at 18:17 Nystatin (Nystatin Powder) 1 applic BID TOP Last administered on 01/27/19at 09:27; Admin Dose 1 APPLIC; Start 01/17/19 at 18:17 Pantoprazole (Protonix Tab) 40 mg DAILY@06 PO Last administered on 01/27/19 05:37; Admin Dose 40 MG; Start 01/17/19 at 18:17 IV Flush (NS 3 ml) 3 ml PER PROTOCOL IV ; Start 01/17/19 at 18:17 Terazosin HCl (Hytrin) 10 mg HS PO Last administered on 01/26/19at 20:35; Admin Dose 10 MG; Start 01/17/19 at 18:17 Miscellaneous Information 1 ea NOTE XX ; Start 01/17/19 at 18:17 Glucose (Glutose) 15 gm Q15M PRN PO DECREASED GLUCOSE; Start 01/17/19 at 18:17 Glucose (Glutose) 22.5 gm Q15M PRN PO DECREASED GLUCOSE; Start 01/17/19 at 18:17 Dextrose (D50w Syringe) 25 ml Q15M PRN IV DECREASED GLUCOSE; Start 01/17/19 at 18:17 Dextrose (D50w Syringe) 50 ml Q15M PRN IV DECREASED GLUCOSE; Start 01/17/19 at 18:17 Glucagon (Glucagen) 1 mg Q15M PRN IM DECREASED GLUCOSE; Start 01/17/19 at 18:17 Glucose (Glutose) 15 gm Q15M PRN BUCCAL DECREASED GLUCOSE; Start 01/17/19 at 18:17 Multivitamins Therapeutic (Theragran) 1 tab DAILY PO Last administered on 01/26/19at 07:53; Admin Dose 1 TAB; Start 01/17/19 at 18:17 Zinc Sulfate (Zinc Sulfate) 220 mg DAILY PO Last administered on 01/26/19 07:52; Admin Dose 220 MG; Start 01/17/19 at 18:17 Ascorbic Acid (Vitamin C) 250 mg DAILY PO Last administered on 01/26/19 07:53; Admin Dose 250 MG; Start 01/17/19 at 18:17 Albuterol/ Ipratropium (Duoneb) 3 ml Q6H RESP THERAPY HHN Last administered on 01/27/19 09:17; Admin Dose 3 ML; Start 01/17/19 at 18:17 Multi-Ingredient Ointment (Aquaphor Oint 52.5 Gm) 1 applic BID TOP Last administered on 01/27/19 09:27; Admin Dose 1 APPLIC; Start 01/17/19 at 18:17 Aspirin (Aspirin) 81 mg DAILY PO Last administered on 01/26/19 07:52; Admin Dose 81 MG; Start 01/17/19 at 18:17 Ferrous Sulfate (Ferrous Sulfate (Ec)) 325 mg WITH MEALS PO Last administered on 01/26/19 16:54; Admin Dose 325 MG; Start 01/17/19 at 18:17 Bisacodyl (Dulcolax Supp) 10 mg DAILY PRN [place] CONSTIPATION; Start 01/17/19 at 18:17 Zinc Acetate/ Diphenhydramine (Benadryl 2% Cr) 1 applic Q6H PRN TOP ITCHING Last administered on 01/26/19 07:54; Admin Dose 1 APPLIC; Start 01/19/19 at 16:37 Nystatin/ Triamcinolone Acetonide (Mycolog Cr) 1 applic BID TOP Last administered on 01/27/19 09:27; Admin Dose 1 APPLIC; Start 01/19/19 at 22:41 Epoetin Dae-epbx (RETACRIT(non-esrd)) 20,000 unit Mo@1700 SC Last administered on 01/20/19 18:13; Admin Dose 20,000 UNIT; Start 01/20/19 at 17:00 IV Flush (NS 10 ml) 10 ml PRN PRN IV IV PROTOCOL; Start 01/20/19 at 14:30 Cyanocobalamin (Vitamin B12 Inj) 1,000 mcg Q7D IM ; Start 02/03/19 at 09:00 Dextrose 1,000 ml @ 40 mls/hr Q24H IV Last administered on 01/27/19 13:00; Admin Dose 40 MLS/HR; Start 01/26/19 at 13:00 Metoprolol Tartrate (Lopressor) 25 mg BID PO Last administered on 01/26/19at 20:34; Admin Dose 25 MG; Start 01/26/19 at 21:00 Metoprolol Tartrate (Lopressor) 5 mg Q4H PRN IV HR>110 Hold SBP<100; Start 01/26/19 at 14:30 Furosemide (Lasix) 40 mg BID DIURETICS IV ; Start 01/27/19 at 18:00 Vancomycin HCl (Vanco Iv Per Pharmacy) VANCOMYCIN PER PHARMACY PER PROTOCOL XX ; Start 01/27/19 at 12:00 Norepinephrine 250 ml @ 1.875 mls/ hr TITRATE IV ; Start 01/27/19 at 12:30 Methylprednisolone Sodium Succinate (Solu-Medrol) 40 mg Q8 IV ; Start 01/27/19 at 14:00 Enoxaparin Sodium (Lovenox) 60 mg DAILY SC ; Start 01/28/19 at 09:00 Vancomycin HCl 1.5 gm/Sodium Chloride 250 ml @ 83.333 mls/ hr ONCE ONCE IVPB ; Start 01/27/19 at 15:00; Stop 01/27/19 at 17:59 Lorazepam (Ativan) 1 mg Q2 PRN IV SEIZURES; Start 01/27/19 at 14:00 LUCIAN HARKINS NP January 27, 2019 14:47
[2019-01-27] MEDS ORDERED: VANCOMYCIN HCL 1.5 GM in SOD CHLORIDE 0.9% 250 ML IVPB ONE (15:00)
--- NOTE | 2019-01-27 15:10 | CONS ---
Assessment/Plan Assessment/Plan Hospital Course 88 yo M with multiple comorbidities who initially presented for evaluation of hiccups. He was noted to become acutely altered... for which neurology is consulted. He was noted to develop ams on 01/21 around 7pm and noted on 01/22 to be unresponsive... prompting a code stroke activation. The clinical picture suggests an acute toxic-metabolic encephalopathy.. A focal LAB MANAGER process is, though, not yet excluded. CTH is without acute ischemia, though notable for chronic infarcts. 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 On 01/27/19, the pt was noted to have recurrent spells concerning for seizure, in the context of hypotension and hypothermia --> Tx to ICU P: EEG to evaluate for epileptiform activity Start Keppra iv for now Ativan IV PRN prolonged seizure (> 5 min) Await MRI brain for further characterization Await MRA H c/o contrast and MRA neck c/ and s/ contrast for the same ASA/Lipitor pending the above Hold sedating medications where possible Other medical management per primary Will follow clinically, to recommend neurologic studies, as necessary Consultation Date/Type/Reason Admit Date/Time Jan 17, 2019 at 15:58 Type of Consult Neurology Reason for Consultation ams; eval for stroke Requesting Provider: IVAN AKHTAR MD Date/Time of Note DATE: 01/27/19 TIME: 15:09 24 HR Interval Summary Free Text/Dictation Pt reportedly became unresponsive. Had witnessed limb jerking movements. Found to be hypotensive. S/p PEDIATRIC SPEECH THERAPIST. Transferred to ICU for close monitoring. Subjective hx not possible: pt non-verbal Exam Vital Signs Vitals Vital Signs Date Temp Pulse Resp B/P (MAP) Pulse Ox O2 O2 Flow FiO2 Time Delivery Rate 01/27/19 88 100 30 14:25 01/27/19 21 74/50 (58) BIPAP 13:15 01/27/19 91.2 2.0 12:15 Intake and Output 01/26/19 01/26/19 01/27/19 1515:00 23:00 07:00 IntakeIntake Total 380 ml 530 ml OutputOutput Total 500 ml 200 ml BalanceBalance -120 ml 330 ml Exam PE: Gen Appearance: No Apparent Distress HEENT: Normocephalic; on BIPAP Cardiovascular: Regular rate Abdomen: Soft Extremities: Dry, skin peeling NE: The patient was obtunded and nonverbal. Opens eyes to noxious stimuli. Cranial nerve examination was limited by mental status. Pupils were equal and reactive to light. There was no afferent pupillary defect. Funduscopic examination was limited. Face was grossly symmetric. Tone was normal. Muscle bulk was normal. I did not see fasciculations. The patient localized his upper extremities to noxious stimuli; withdrew his lowers. Coordination and gait testing was limited by mental status. Arm and leg reflexes were within normal limits and symmetric. Gray's sign was absent. Plantar responses were flexor. NEGRA CORONA NP January 27, 2019 15:10 ANGE RAMIREZ January 28, 2019 06:06
[2019-01-27] MEDS: METHYLPREDNISOLONE 40 MG INJ IV SCH ×2 (15:26→22:41)
--- NOTE | 2019-01-27 15:39 | CONS ---
DATE OF ADMISSION: 01/17/2019 DATE OF CONSULTATION: TYPE OF CONSULTATION: Pulmonary. REASON FOR CONSULTATION: Respiratory distress. Thank you, Dr. Buchanan, for this consultation. HISTORY OF PRESENT ILLNESS: This is an 88-year-old gentleman originally admitted on 01/17/2019 with worsening anemia, evidence of sepsis who has had prolonged admission at this hospital. This morning, he had worsening mentation requiring transfer to intensive care unit. Here, he remains lethargic wi th evidence of mild hypercapnia. Few further details are available. PAST MEDICAL HISTORY: Includes: 1. Atrial fibrillation. 2. Congestive cardiac failure. 3. Tricuspid regurgitation. 4. Acute on chronic renal failure. 5. Rheumatoid arthritis. 6. Encephalopathy. 7. Recurrent sepsis. 8. Underlying history of COPD. 9. Dysphagia. ALLERGIES: 1. PENICILLIN. 2. SULFA. MEDICATIONS: Per chart. PHYSICAL EXAMINATION: GENERAL: Elderly-appearing gentleman, largely somnolent on nasal cannula. NECK: Supple. No JVD or lymphadenopathy. CARDIAC: S1, S2. No added sounds or murmurs. CHEST: Diminished air entry bilaterally. ABDOMEN: Soft, nontender. No guarding or rebound. EXTREMITIES: No cyanosis, clubbing. A 1+ edema. NEUROLOGIC: Unable to assess. LABORATORY DATA: ABG: pH 7.28, pCO2 of 51, pO2 of 147. Hemoglobin 12.8, platelets of 7.9. BUN 37, creatinine 1.3. DIAGNOSTIC DATA: Chest x-ray shows significant bilateral pulmonary edema and infiltrates. IMPRESSION AND PLAN: Progressive hypoxemic respiratory failure, likely combination of hospital-acqui red pneumonia and pulmonary edema. The patient will require: 1. Diuretics. 2. Noninvasive positive pressure ventilation. 3. Aspiration precautions. 4. Broad-spectrum antibiotics. 5. DVT and GI prophylaxis. Dictated By: DIANA MCRAE MD SV/NTS Conf#: [id number] DID#: [id number] CC: LILY LAMBERT MD; IVAN BUCHANAN;*EndCC*
[2019-01-27] MEDS ORDERED: ALBUMIN HUMAN 25% 100 ML IV ONE (16:00)
--- NOTE | 2019-01-27 16:08 | CONS ---
Assessment/Plan Assessment/Plan Assessment/Plan (Daily) Assessment/Plan (Daily) Interval hx: Pending morning labs. M 1. Severe anemia likely due to chronic disease, last work up while admitted to [facility] about a week ago was neg for GI bleeding, including EGD/colon which was done -s/p EGD and colonoscopy by Dr Frost 01/09/19 which didn't find an obvious GI etiology to explain anemia. AVM or a small lesion could be missed due to poor prep. Pt likely needs capsule endoscopy -Neg fob, elevate retic, Low iron, tibc, [place] sat, [place] [id number] 2. Cystic lesion along pancreas body - 4.3 cm cystic lesion along the pancreas body, enlarged since 10/10/2012 (previously 2.4 cm). 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 -CEA wnl 3. Severe gastritis 4. Hemorrhoids 5. Hital hernia 6. A fib, -eliquis was stopped 01/06 during previous admission, on ASA 7. COPD 8. HTN 9. Hypothyroidism 10. Bilateral groin cellulitis 11. Rheumatoid arthritis. 12. Diabetes mellitus. 13. Peripheral vascular disease. 14. CHF 15. 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 Sepsis- Leukocytosis up to 29, urine cx was unremarkable CT Abd 01/15/19 IMPRESSION: 1. No intra-abdominal inflammation or lymphadenopathy. 2. 4.3 cm cystic lesion along the pancreas body, enlarged since 10/10/2012 (previously 2.4 cm). 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 If clinically warranted, this could be further evaluated with contrast-enhanced MRI. 3. No obstructive uropathy or urinary stone. 4. Enlarged prostate gland. Correlation with PSA level is recommended. 5. Moderate atherosclerotic arterial calcifications. 6. Diffuse subcutaneous edema. 7. Status post posterior decompression and fusion at L5-S1. A malpositioned pedicle screw and impinges on the left L4-5 neural foramen, unchanged. 8. Grade 2 degenerative L4 anterolisthesis and grade 1 degenerative L5 anterolisthesis. 9. Questionable CVA, encephalopathy resolved 10. Discoloration of the skin of the lower extremity and also upper extremity and peeling of the skin may be all related to drug-induced reaction 11. Respiratory distress 12. Change in mental status Plan Stop miralax for mx bm, hold laxatives for diarrhea Recommend carranza cx Pt will need outpatient EUS to evaluate pancreatic cystic lesion, this can be done as an outpatient at outside facility by me Recommend capsule endoscopy as outpatient GI prophylaxis: protonix QD Pain management Monitor H&H if no bleeding resume direct anticoagulant Consultation Date/Type/Reason Admit Date/Time Jan 17, 2019 at 15:58 Initial Consult Date 01/18/19 Requesting Provider: IVAN AKHTAR MD Date/Time of Note DATE: 01/27/19 TIME: 16:07 24 HR Interval Summary Free Text/Dictation Patient transferred to intensive care unit for change in mental status Exam/Review of Systems Exam Vitals Vital Signs Date Temp Pulse Resp B/P (MAP) Pulse Ox O2 O2 Flow FiO2 Time Delivery Rate 01/27/19 79 16:00 01/27/19 100 30 14:25 01/27/19 21 74/50 (58) BIPAP 13:15 01/27/19 91.2 2.0 12:15 Intake and Output 01/26/19 01/26/19 01/27/19 1515:00 23:00 07:00 IntakeIntake Total 380 ml 530 ml OutputOutput Total 500 ml 200 ml BalanceBalance -120 ml 330 ml Constitutional: non-verbal Respiratory: diminished breath sounds Cardiovascular: regular rate and rhythm, nl pulses Extremities: normal pulses Results Result Diagram: 01/27/19 1038 01/27/19 1038 Results 24hrs Laboratory Tests Test 01/26/19 16:54 01/26/19 20:32 01/27/19 06:30 01/27/19 08:29 Bedside Glucose 128 139 157 White Blood Count 12.9 H Red Blood Count 2.81 L Hemoglobin 8.2 L Hematocrit 25.6 L Mean Corpuscular 91.1 Volume Mean Corpuscular 29.2 Hemoglobin Mean Corpuscular 32.0 Hemoglobin Concen t Red Cell 18.0 H Distribution Width Platelet Count 195 Mean Platelet 10.6 H Volume Immature 1.200 H Granulocytes % Neutrophils % 81.6 H Segmented 68 Neutrophils % (Manual) Band Neutrophils 19 H % (Manual) Lymphocytes % 11.9 L Lymphocytes % 7 L (Manual) Monocytes % 4.4 Monocytes % 3 (Manual) Eosinophils % 0.5 Eosinophils % 1 (Manual) Basophils % 0.4 Metamyelocytes % 2 H (manual) Nucleated Red 1 H Blood Cells % Immature 0.150 H Granulocytes # Neutrophils # 10.5 H Neutrophils # 9.1 H (Manual) Band Neutrophils 2.4 H # Lymphocytes 0.9 (Manual) Lymphocytes # 1.5 Monocytes # 0.6 Monocytes # 0.3 (Manual) Eosinophils # 0.1 Basophils # 0.1 Metamyelocytes # 0.2 H Nucleated Red 0.0 Blood Cells # Platelet Estimate NORMAL Giant Platelets 3 H Polychromasia 1+ Hypochromasia 1+ Poikilocytosis 2+ Anisocytosis 2+ Macrocytosis 2+ Target Cells 1+ Sodium Level 140 Potassium Level 3.8 Chloride Level 105 Carbon Dioxide 25 Level Anion Gap 10 Blood Urea 37 H Nitrogen Creatinine 1.20 Est Glomerular Filtrat Rate mL/min Glucose Level 148 # Calcium Level 8.3 L Test 01/27/19 10:19 01/27/19 10:24 01/27/19 10:38 01/27/19 11:09 Bedside Glucose 113 Blood Gas Blood arterial Specimen Source Arterial Blood 01/27/2019 10:30:2 Date Drawn 9 AM Arterial Blood pH 7.285 *L (Temp corrected) Arterial Blood 51.4 H pCO2 (Temp correct) Arterial Blood 147.3 H pO2 (Temp corrected) Arterial Blood 23.9 HCO3 Arterial Blood -2.8 Base Excess Arterial Blood 98.3 Oxygen Saturation Manuel Test N/A Arterial Blood Right Brachial Gas Puncture Site Arterial 0.3 Blood Carboxyhemo globin Arterial Blood 0.5 Methemoglobin Blood Gas A-a O2 28.0 H Differential Oxyhemoglobin 97.5 Percent Blood Gas 37.0 Temperature Blood Gas NASAL CANNULA Modality FiO2 33.0 Blood Gas JENNIFER WONG Critical Value Read Back Blood Gas Notified Whom Blood Gas 01/27/2019 10:47:5 Notified Time 6 AM White Blood Count 12.8 H Red Blood Count 2.69 L Hemoglobin 7.9 L Hematocrit 25.4 L Mean Corpuscular 94.4 Volume Mean Corpuscular 29.4 Hemoglobin Mean Corpuscular 31.1 L Hemoglobin Concen t Red Cell 18.2 H Distribution Width Platelet Count 175 Mean Platelet 10.9 H Volume Immature 1.100 H Granulocytes % Neutrophils % 82.6 H Segmented 66 Neutrophils % (Manual) Band Neutrophils 25 H % (Manual) Lymphocytes % 11.0 L Lymphocytes % 4 L (Manual) Reactive 1 H Lymphocytes % (Manual) Monocytes % 4.9 Monocytes % 3 (Manual) Eosinophils % 0.2 Basophils % 0.2 Myelocytes % 1 H (Manual) Nucleated Red 0.2 H Blood Cells % Immature 0.140 H Granulocytes # Neutrophils # 10.6 H Neutrophils # 8.9 H (Manual) Band Neutrophils 3.2 H # Lymphocytes 0.5 L (Manual) Lymphocytes # 1.4 Reactive 0.1 H Lymphocytes # Monocytes # 0.6 Monocytes # 0.3 (Manual) Eosinophils # 0.0 Basophils # 0.0 Myelocytes # 0.1 H Nucleated Red 0.0 Blood Cells # Platelet Estimate NORMAL Giant Platelets 1 H Polychromasia 1+ Hypochromasia 1+ Poikilocytosis 2+ Anisocytosis 2+ Macrocytosis 2+ Target Cells 1+ Sodium Level 140 Potassium Level 3.6 Chloride Level 106 Carbon Dioxide 24 Level Anion Gap 10 Blood Urea 37 H Nitrogen Creatinine 1.30 H Est Glomerular Filtrat Rate mL/min Glucose Level 112 Calcium Level 8.0 L Lab Scanned REFERENCE LAB Report Test 01/27/19 12:16 01/27/19 15:00 Bedside Glucose 136 Blood Gas Blood arterial Specimen Source Arterial Blood 01/27/2019 2:30:38 Date Drawn PM Arterial Blood pH 7.354 (Temp corrected) Arterial Blood 47.2 H pCO2 (Temp correct) Arterial Blood 103.2 H pO2 (Temp corrected) Arterial Blood 25.7 HCO3 Arterial Blood 0 Base Excess Arterial Blood 97.4 Oxygen Saturation Manuel Test ACCEPTAB Arterial Blood Left Radial Gas Puncture Site Arterial 0.1 Blood Carboxyhemo globin Arterial Blood 0.5 Methemoglobin Blood Gas A-a O2 55.2 H Differential Oxyhemoglobin 96.8 Percent Blood Gas 37.0 Temperature Blood Gas 18.0 Respiration Rate Blood Gas Actual 18 Respiration Rate Blood Gas MASK - BIPAP Modality FiO2 30.0 Blood Gas Y CHARLA WONG Critical Value Read Back Blood Gas T [facility] Notified Whom Blood Gas 01/27/2019 2:47:34 Notified Time PM Medications Medication Current Medications Docusate Sodium (Colace) 100 mg BID PO Last administered on 01/26/19at 20:33; Admin Dose 100 MG; Start 01/17/19 at 18:17 Lactulose (Enulose) 20 gm DAILY PRN PO CONSTIPATION; Start 01/17/19 at 18:17 Acetaminophen (Tylenol Tab) 650 mg Q4H PRN PO PAIN Last administered on 01/23/19 22:48; Admin Dose 650 MG; Start 01/17/19 at 18:17 Miscellaneous Information (Pending [facility] Order For Wound Care) This patient ramirez... PRN PRN XX WOUND CARE; Start 01/17/19 at 18:17 Diagnostic Test (Pha) (Accu-Chek) 1 ea AC MEALS AND BEDTIME XX Last administered on 01/27/19 11:00; Admin Dose 1 EA; Start 01/17/19 at 18:17 Diagnostic Test (Pha) (Accu-Chek) 1 ea 02 XX Last administered on 01/22/19 02:00; Admin Dose 1 EA; Start 01/17/19 at 18:17 Albuterol/ Ipratropium (Duoneb) 3 ml Q2H RESP THERAPY PRN HHN SHORTNESS OF BREATH; Start 01/17/19 at 18:17 Atorvastatin Calcium (Lipitor) 40 mg QHS PO Last administered on 01/26/19 20:33; Admin Dose 40 MG; Start 01/17/19 at 18:17 Bisacodyl (Dulcolax) 10 mg BID PRN PO CONSTIPATION; Start 01/17/19 at 18:17 Folic Acid (Folic Acid) 1 mg DAILY PO Last administered on 01/26/19 07:52; Admin Dose 1 MG; Start 01/17/19 at 18:17 Insulin Aspart (Novolog Insulin Pen) NOVOLOG *MILD* ALGORITHM WITH MEALS BEDTIME SC Last administered on 01/27/19 08:36; Admin Dose 1 UNIT; Start 01/17/19 at 18:17 Latanoprost (Xalatan) 1 drop HS BOTH EYES Last administered on 01/26/19 20:41; Admin Dose 1 DROP; Start 01/17/19 at 18:17 Levothyroxine Sodium (Synthroid) 125 mcg BEFORE BREAKFAST PO Last administered on 01/27/19 05:37; Admin Dose 125 MCG; Start 01/17/19 at 18:17 Nitroglycerin (Nitroglycerin (Sl Tab) 0.4 Mg) 0.4 tab Q5M PRN SL CHEST PAIN; Start 01/17/19 at 18:17 Nystatin (Nystatin Powder) 1 applic BID TOP Last administered on 01/27/19 09:27; Admin Dose 1 APPLIC; Start 01/17/19 at 18:17 Pantoprazole (Protonix Tab) 40 mg DAILY@06 PO Last administered on 01/27/19 05:37; Admin Dose 40 MG; Start 01/17/19 at 18:17 IV Flush (NS 3 ml) 3 ml PER PROTOCOL IV ; Start 01/17/19 at 18:17 Terazosin HCl (Hytrin) 10 mg HS PO Last administered on 01/26/19 20:35; Admin Dose 10 MG; Start 01/17/19 at 18:17 Miscellaneous Information 1 ea NOTE XX ; Start 01/17/19 at 18:17 Glucose (Glutose) 15 gm Q15M PRN PO DECREASED GLUCOSE; Start 01/17/19 at 18:17 Glucose (Glutose) 22.5 gm Q15M PRN PO DECREASED GLUCOSE; Start 01/17/19 at 18:17 Dextrose (D50w Syringe) 25 ml Q15M PRN IV DECREASED GLUCOSE; Start 01/17/19 at 18:17 Dextrose (D50w Syringe) 50 ml Q15M PRN IV DECREASED GLUCOSE; Start 01/17/19 at 18:17 Glucagon (Glucagen) 1 mg Q15M PRN IM DECREASED GLUCOSE; Start 01/17/19 at 18:17 Glucose (Glutose) 15 gm Q15M PRN BUCCAL DECREASED GLUCOSE; Start 01/17/19 at 18:17 Multivitamins Therapeutic (Theragran) 1 tab DAILY PO Last administered on 01/26/19 07:53; Admin Dose 1 TAB; Start 01/17/19 at 18:17 Zinc Sulfate (Zinc Sulfate) 220 mg DAILY PO Last administered on 01/26/19 07:52; Admin Dose 220 MG; Start 01/17/19 at 18:17 Ascorbic Acid (Vitamin C) 250 mg DAILY PO Last administered on 01/26/19 07:53; Admin Dose 250 MG; Start 01/17/19 at 18:17 Albuterol/ Ipratropium (Duoneb) 3 ml Q6H RESP THERAPY HHN Last administered on 01/27/19 09:17; Admin Dose 3 ML; Start 01/17/19 at 18:17 Multi-Ingredient Ointment (Aquaphor Oint 52.5 Gm) 1 applic BID TOP Last administered on 01/27/19 09:27; Admin Dose 1 APPLIC; Start 01/17/19 at 18:17 Aspirin (Aspirin) 81 mg DAILY PO Last administered on 01/26/19at 07:52; Admin Dose 81 MG; Start 01/17/19 at 18:17 Ferrous Sulfate (Ferrous Sulfate (Ec)) 325 mg WITH MEALS PO Last administered on 01/26/19at 16:54; Admin Dose 325 MG; Start 01/17/19 at 18:17 Bisacodyl (Dulcolax Supp) 10 mg DAILY PRN SC CONSTIPATION; Start 01/17/19 at 18:17 Zinc Acetate/ Diphenhydramine (Benadryl 2% Cr) 1 applic Q6H PRN TOP ITCHING Last administered on 01/26/19 07:54; Admin Dose 1 APPLIC; Start 01/19/19 at 16:37 Nystatin/ Triamcinolone Acetonide (Mycolog Cr) 1 applic BID TOP Last administered on 01/27/19at 09:27; Admin Dose 1 APPLIC; Start 01/19/19 at 22:41 Epoetin Dae-epbx (RETACRIT(non-esrd)) 20,000 unit Mo@1700 SC Last administered on 01/20/19at 18:13; Admin Dose 20,000 UNIT; Start 01/20/19 at 17:00 IV Flush (NS 10 ml) 10 ml PRN PRN IV IV PROTOCOL; Start 01/20/19 at 14:30 Cyanocobalamin (Vitamin B12 Inj) 1,000 mcg Q7D IM ; Start 02/03/19 at 09:00 Dextrose 1,000 ml @ 40 mls/hr Q24H IV Last administered on 01/27/19at 13:00; Admin Dose 40 MLS/HR; Start 01/26/19 at 13:00 Metoprolol Tartrate (Lopressor) 25 mg BID PO Last administered on 01/26/19at 20:34; Admin Dose 25 MG; Start 01/26/19 at 21:00 Metoprolol Tartrate (Lopressor) 5 mg Q4H PRN IV HR>110 Hold SBP<100; Start 01/26/19 at 14:30 Furosemide (Lasix) 40 mg BID DIURETICS IV ; Start 01/27/19 at 18:00 Vancomycin HCl (Vanco Iv Per Pharmacy) VANCOMYCIN PER PHARMACY PER PROTOCOL XX ; Start 01/27/19 at 12:00 Norepinephrine 250 ml @ 1.875 mls/ hr TITRATE IV ; Start 01/27/19 at 12:30 Methylprednisolone Sodium Succinate (Solu-Medrol) 40 mg Q8 IV Last administered on 01/27/19at 15:26; Admin Dose 40 MG; Start 01/27/19 at 14:00 Enoxaparin Sodium (Lovenox) 60 mg DAILY SC ; Start 01/28/19 at 09:00 Vancomycin HCl 1.5 gm/Sodium Chloride 250 ml @ 83.333 mls/ hr ONCE ONCE IVPB Last administered on 01/27/19at 15:26; Admin Dose 83.333 MLS/HR; Start 01/27/19 at 15:00; Stop 01/27/19 at 17:59 Lorazepam (Ativan) 1 mg Q2 PRN IV SEIZURES; Start 01/27/19 at 14:00 Aztreonam 50 ml @ 100 mls/hr Q12 IVPB ; Start 01/27/19 at 16:30 Metronidazole 100 ml @ 100 mls/hr Q8 IVPB ; Start 01/27/19 at 15:00 Albumin Human 100 ml @ 100 mls/hr ONCE ONCE IV ; Start 01/27/19 at 16:00; Stop 01/27/19 at 16:59 Vancomycin HCl 250 ml @ 125 mls/hr Q36H IVPB ; Start 01/29/19 at 03:00 MICHELLE FROST MD January 27, 2019 16:08
[2019-01-27] MEDS ORDERED: LIDOCAINE 2 GM/D5W 500 ML IV SCH (16:30)
[2019-01-27] MEDS: NORepinephrine 8MG/250 ML (PMX 250 ML IV SCH (17:00)
[2019-01-27] MEDS: metroNIDAZOLE 500 MG/NS (PMX) 100 ML IVPB SCH ×2 (17:45→22:41)
[2019-01-27] MEDS: FUROSEMIDE 40 MG INJ IV SCH (17:46)
[2019-01-27] MEDS: AZTREONAM 1 GM/NS (PMX) 50 ML IVPB SCH (17:54)
--- NOTE | 2019-01-27 18:46 | OPR ---
DATE OF OPERATION: PREOPERATIVE DIAGNOSIS: Sepsis. POSTOPERATIVE DIAGNOSIS: Sepsis. OPERATION PERFORMED: Left subclavian vein central line placement. SURGEON: Lyndsey Dixon MD ANESTHESIA: Local. CONSENT: Risks, benefits, complications, alternative therapies [facility], consent obtained. OPERATIVE TECHNIQUE: The patient was placed in supine position, prepped and draped in usual sterile fashion. Time-out was called. Access was gained to the left subclavian vein. Guidewire was advance d through without any difficulty. Subcutaneous tissues were dilated. Central line advanced over ari dewire, secured to skin using silk sutures. Both ports of the catheter were aspirated and injected u sing saline solution. The patient tolerated procedure well. Dictated By: LYNDSEY BAÑUELOS/SUZIE Conf#: [id number] DID#: [id number]
[2019-01-27] MEDS: EPOETIN ALFA-EPBX (NON-ESRD 10,000 UNIT/ML VIAL SC SCH (19:28)
[2019-01-27] MEDS: LORAZEPAM 2 MG INJ IV PRN ×2 (20:12→23:44)
[2019-01-27] MEDS ORDERED: SOD CHLORIDE 0.9% 500 ML IV ONE (21:30)
[2019-01-27] MEDS ORDERED: DOCUSATE SODIUM 10 MG/ML (10ML CUP) NGT SCH (22:00)
[2019-01-27] MEDS ORDERED: LEVETIRACETAM 1000 MG (PMX) 100 ML IVPB ONE (23:00)
[2019-01-27] MEDS: LATANOPROST 0.005% 2.5 ML OPH BOTH EYES SCH (23:48)
[2019-01-28] VITALS (93 sets, daily range): BP systolic 78–149; BP diastolic 40–89; PULSE 94–133; RESP 13–49
[2019-01-28] MEDS: NORepinephrine 8MG/250 ML (PMX 250 ML IV SCH ×5 (00:56→23:52)
[2019-01-28] MEDS: AZTREONAM 1 GM/NS (PMX) 50 ML IVPB SCH ×3 (00:57→21:19)
[2019-01-28] MEDS: ACCU-CHEK XX SCH ×5 (01:05→21:24)
[2019-01-28] MEDS: ALBUTEROL/IPRATROPIUM (NEB) 3 ML AMP HHN SCH ×5 (01:20→20:39)
[2019-01-28] MEDS: PANTOPRAZOLE (EC) 40 MG TAB PO SCH (05:36)
[2019-01-28] MEDS: FUROSEMIDE 40 MG INJ IV SCH ×2 (05:37→17:27)
[2019-01-28] MEDS: metroNIDAZOLE 500 MG/NS (PMX) 100 ML IVPB SCH ×3 (05:37→22:50)
[2019-01-28] MEDS: METHYLPREDNISOLONE 40 MG INJ IV SCH ×3 (05:37→22:49)
--- NOTE | 2019-01-28 06:32 | EEG ---
EEG NOTE Report Details DATE OF TEST: 01/27/19 HISTORY: The patient is an 88-year-old M who presents with altered mental status. This EEG is requested to evaluate for seizures. SEDATION: None. CONDITIONS OF RECORDING: This EEG was recorded digitally on the [employer] machine, using the International 10-20 System of electrodes plus anterior temporals and [place]. STATES SAMPLED: Lethargic. FINDINGS: The background is grossly symmetric and continuous...predominated by polymorphic delta activity. The normal [id number] frequency-amplitude gradient was absent. Photic stimulation does not elicit any definite driving responses or epileptiform discharges. Hyperventilation was not performed. No asymmetries, focal abnormalities or epileptiform discharges were seen. IMPRESSION: Abnormal electroencephalogram due to: severe diffuse slowing. COMMENT: The slowing of the background indicates severe, diffuse cortical dysfunction of nonspecific etiology. ANGE RAMIREZ January 28, 2019 06:32
[2019-01-28] MEDS: LEVOTHYROXINE 125 MCG TAB NGT SCH (06:55)
[2019-01-28] MEDS: INSULIN ASPART [NOVOLOG] 3 ML PEN SC SCH ×5 (06:58→21:00)
[2019-01-28] MEDS: FERROUS SULFATE (EC) 325 MG TAB PO SCH ×2 (07:01→08:59)
[2019-01-28] MEDS: METOPROLOL 25 MG TAB PO SCH (08:22)
--- NOTE | 2019-01-28 08:32 | CONS ---
Consult Date/Type/Reason Admit Date/Time Jan 17, 2019 at 15:58 Initial Consult Date Requesting Provider: IVAN AKHTAR MD Date/Time of Note DATE: 01/28/19 TIME: 08:28 Subjective No acute events - pt stable overall - now confused. On levo gtt - con't supportive - will monitor clonically. ROS: No fever, no chills, no nausea, no vomiting, no diarrhea/constipation - per nurse Objective Vitals Vital Signs Date Temp Pulse Resp B/P (MAP) Pulse Ox O2 O2 Flow FiO2 Time Delivery Rate 01/28/19 125 08:00 01/28/19 36 102/56 100 07:15 (71) 01/28/19 Nasal 07:00 Cannula 01/28/19 97.8 04:00 01/28/19 2.0 01:20 01/27/19 30 14:25 Intake and Output 01/27/19 01/27/19 01/28/19 1515:00 23:00 07:00 IntakeIntake Total 120 ml 628.1 ml 0 ml OutputOutput Total 5 ml 140 ml 330 ml BalanceBalance 115 ml 488.1 ml -330 ml Exam General: WN/WD/NAD, AOx 0 HEENT: Unicetric/atraumatic/EOMI (does not follow commands) NECK: JVD elevated, no thyromegaly Lymph: no lymphadenopathy HEART: regular with no S3, II/ systolic murmur at apex LUNGS: Coarse sounds ABD: soft, NT, ND, +BS : Intact Neuro: non focal SKIN: desquamation changes EXT: trace edema Results/Medications Result Diagram: 01/27/19 1038 01/27/19 1038 Results 24 hrs Laboratory Tests Test 01/27/19 08:29 01/27/19 10:19 01/27/19 10:24 01/27/19 10:38 Bedside Glucose 157 113 Blood Gas Blood arterial Specimen Source Arterial Blood 01/27/2019 10:30: Date Drawn 29 AM Arterial Blood 7.285 *L pH (Temp corrected ) Arterial Blood 51.4 H pCO2 (Temp correct) Arterial Blood 147.3 H pO2 (Temp corrected ) Arterial Blood 23.9 HCO3 Arterial Blood -2.8 Base Excess Arterial Blood 98.3 Oxygen Saturati on Manuel Test N/A Arterial Blood Right Brachial Gas Puncture Site Arterial 0.3 Blood Carboxyhe moglobin Arterial Blood 0.5 Methemoglobin Blood Gas A-a 28.0 H O2 Differential Oxyhemoglobin 97.5 Percent Blood Gas 37.0 Temperature Blood Gas NASAL CANNULA Modality FiO2 33.0 Blood Gas JENNIFER WONG Critical Value Read Back Blood Gas CW Notified Whom Blood Gas 01/27/2019 10:47: Notified Time 56 AM White Blood 12.8 H Count Red Blood Count 2.69 L Hemoglobin 7.9 L Hematocrit 25.4 L Mean 94.4 Corpuscular Volume Mean 29.4 Corpuscular Hemoglobin Mean 31.1 L Corpuscular Hemoglobin Conc ent Red Cell 18.2 H Distribution Width Platelet Count 175 Mean Platelet 10.9 H Volume Immature 1.100 H Granulocytes % Neutrophils % 82.6 H Segmented 66 Neutrophils % (Manual) Band 25 H Neutrophils % (Manual) Lymphocytes % 11.0 L Lymphocytes % 4 L (Manual) Reactive 1 H Lymphocytes % (Manual) Monocytes % 4.9 Monocytes % 3 (Manual) Eosinophils % 0.2 Basophils % 0.2 Myelocytes % 1 H (Manual) Nucleated Red 0.2 H Blood Cells % Immature 0.140 H Granulocytes # Neutrophils # 10.6 H Neutrophils # 8.9 H (Manual) Band 3.2 H Neutrophils # Lymphocytes 0.5 L (Manual) Lymphocytes # 1.4 Reactive 0.1 H Lymphocytes # Monocytes # 0.6 Monocytes # 0.3 (Manual) Eosinophils # 0.0 Basophils # 0.0 Myelocytes # 0.1 H Nucleated Red 0.0 Blood Cells # Platelet NORMAL Estimate Giant Platelets 1 H Polychromasia 1+ Hypochromasia 1+ Poikilocytosis 2+ Anisocytosis 2+ Macrocytosis 2+ Target Cells 1+ Sodium Level 140 Potassium Level 3.6 Chloride Level 106 Carbon Dioxide 24 Level Anion Gap 10 Blood Urea 37 H Nitrogen Creatinine 1.30 H Est Glomerular Filtrat Rate mL/min Glucose Level 112 Calcium Level 8.0 L Test 01/27/19 11:09 01/27/19 12:16 01/27/19 15:00 01/27/19 18:04 Lab Scanned REFERENCE LAB Report Bedside Glucose 136 153 Blood Gas Blood arterial Specimen Source Arterial Blood 01/27/2019 2:30:3 Date Drawn 8 PM Arterial Blood 7.354 pH (Temp corrected ) Arterial Blood 47.2 H pCO2 (Temp correct) Arterial Blood 103.2 H pO2 (Temp corrected ) Arterial Blood 25.7 HCO3 Arterial Blood 0 Base Excess Arterial Blood 97.4 Oxygen Saturati on Manuel Test ACCEPTAB Arterial Blood Left Radial Gas Puncture Site Arterial 0.1 Blood Carboxyhe moglobin Arterial Blood 0.5 Methemoglobin Blood Gas A-a 55.2 H O2 Differential Oxyhemoglobin 96.8 Percent Blood Gas 37.0 Temperature Blood Gas 18.0 Respiration Rate Blood Gas 18 Actual Respiration Rat e Blood Gas MASK - BIPAP Modality FiO2 30.0 Blood Gas Y CHARLA WONG Critical Value Read Back Blood Gas T [employer] Notified Whom Blood Gas 01/27/2019 2:47:3 Notified Time 4 PM Test 01/27/19 19:27 01/27/19 20:56 01/28/19 06:54 01/28/19 07:00 Bedside Glucose 157 131 165 Blood Gas Blood arterial Specimen Source Arterial Blood 01/28/2019 7:01:5 Date Drawn 5 AM Arterial Blood 7.465 H pH (Temp corrected ) Arterial Blood 36.2 pCO2 (Temp correct) Arterial Blood 71.0 L pO2 (Temp corrected ) Arterial Blood 25.5 HCO3 Arterial Blood 1.8 Base Excess Arterial Blood 95.2 Oxygen Saturati on Manuel Test ACCEPTAB Arterial Blood Right Radial Gas Puncture Site Arterial 0.2 Blood Carboxyhe moglobin Arterial Blood 0.5 Methemoglobin Blood Gas A-a 78.7 H O2 Differential Oxyhemoglobin 94.5 Percent Blood Gas 37.0 Temperature Blood Gas NASAL CANNULA Modality FiO2 27.0 Blood Gas TM Notified Whom Blood Gas 01/28/2019 7:30:2 Notified Time 9 AM Home Meds Active Scripts Apixaban* (Eliquis*) 5 Mg Tablet, 2.5 MG PO BID for 30 Days, TAB Prov:IVAN AKHTAR MD 12/20/18 Metoprolol Tartrate* (Lopressor*) 50 Mg Tab, 50 MG PO BID for 30 Days, TAB Prov:COOPER CARO 12/20/18 Reported Medications Furosemide* (Lasix*) 20 Mg Tablet, 20 MG PO BID, TAB 01/05/19 Polyethylene Glycol* (Miralax*) 17 Gm Powd.pack, 17 GM PO DAILY, #30 PACKET 12/15/18 Nifedipine* (Nifedipine ER*) 60 Mg Tablet.sa, 60 MG PO DAILY, TAB.SA 12/15/18 Bisacodyl* (Bisacodyl*) 5 Mg Tablet.dr, 10 MG PO BID PRN for CONSTIPATION, TAB 12/15/18 Pregabalin* (Lyrica*) 25 Mg Capsule, 25 MG PO TID, CAP 12/15/18 Bimatoprost* (Lumigan*) 0.01%-5 Ml Opht Drops, 1 DROP BOTH EYES HS, EA 03/02/18 Cetirizine Hcl* (Cetirizine Hcl*) 10 Mg Tablet, 10 MG PO DAILY, #30 TAB 03/02/18 Insulin Glargine* (Lantus*) 100 Unit/Ml Soln, 10 UNIT SC QHS, #1 VIAL 03/02/18 Ergocalciferol (Vitamin D2) (VITAMIN D2) 2,000 Unit Tablet, 2000 UNIT PO DAILY, TAB 03/02/18 Famotidine* (Famotidine*) 20 Mg Tablet, 20 MG PO DAILY, #30 TAB 03/02/18 Ferrous Sulfate* (Ferrous Sulfate*) 325 Mg Tabec, 325 MG PO BID, TAB 03/02/18 Nitroglycerin* (Nitrostat*) 0.4 Mg Tab.subl, 0.4 MG SL Q5MIN PRN for CHEST PAIN, BOTTLE 03/02/18 Terazosin Hcl* (Terazosin Hcl*) 10 Mg Capsule, 10 MG PO HS, CAP 03/02/18 Levothyroxine Sodium* (Levoxyl*) 125 Mcg Tablet, 125 MCG PO BEFORE BREAKFAST, #30 TAB 03/02/18 Allopurinol* (Allopurinol*) 100 Mg Tablet, 100 MG PO BID, TAB 03/02/18 Atorvastatin* (Atorvastatin*) 40 Mg Tablet, 40 MG PO QHS, #30 TAB 03/02/18 Folic Acid* (Folic Acid*) 1 Mg Tablet, 1 MG PO DAILY, TAB 03/02/18 Medications Current Medications Lactulose (Enulose) 20 gm DAILY PRN PO CONSTIPATION; Start 01/17/19 at 18:17 Acetaminophen (Tylenol Tab) 650 mg Q4H PRN PO PAIN Last administered on 01/23/19at 22:48; Admin Dose 650 MG; Start 01/17/19 at 18:17 Miscellaneous Information [facility] This patient ramirez... PRN PRN XX WOUND CARE; Start 01/17/19 at 18:17 Diagnostic Test (Pha) (Accu-Chek) 1 ea AC MEALS AND BEDTIME XX Last administered on 01/28/19at 06:55; Admin Dose 1 EA; Start 01/17/19 at 18:17 Diagnostic Test (Pha) (Accu-Chek) 1 ea 02 XX Last administered on 01/22/19at 02:00; Admin Dose 1 EA; Start 01/17/19 at 18:17 Albuterol/ Ipratropium (Duoneb) 3 ml Q2H RESP THERAPY PRN HHN SHORTNESS OF BREATH; Start 01/17/19 at 18:17 Bisacodyl (Dulcolax) 10 mg BID PRN PO CONSTIPATION; Start 01/17/19 at 18:17 Folic Acid (Folic Acid) 1 mg DAILY PO Last administered on 01/26/19 07:52; Admin Dose 1 MG; Start 01/17/19 at 18:17 Insulin Aspart (Novolog Insulin Pen) NOVOLOG *MILD* ALGORITHM WITH MEALS BEDTIME SC Last administered on 01/28/19at 06:58; Admin Dose 1 UNIT; Start 01/17/19 at 18:17 Latanoprost (Xalatan) 1 drop HS BOTH EYES Last administered on 01/27/19 23:48; Admin Dose 1 DROP; Start 01/17/19 at 18:17 Nitroglycerin (Nitroglycerin (Sl Tab) 0.4 Mg) 0.4 tab Q5M PRN SL CHEST PAIN; Start 01/17/19 at 18:17 Nystatin (Nystatin Powder) 1 applic BID TOP Last administered on 01/27/19at 23:48; Admin Dose 1 APPLIC; Start 01/17/19 at 18:17 Pantoprazole (Protonix Tab) 40 mg DAILY@06 PO Last administered on 01/27/19at 0 5:37; Admin Dose 40 MG; Start 01/17/19 at 18:17 IV Flush (NS 3 ml) 3 ml PER PROTOCOL IV ; Start 01/17/19 at 18:17 Miscellaneous Information 1 ea NOTE XX ; Start 01/17/19 at 18:17 Glucose (Glutose) 15 gm Q15M PRN PO DECREASED GLUCOSE; Start 01/17/19 at 18:17 Glucose (Glutose) 22.5 gm Q15M PRN PO DECREASED GLUCOSE; Start 01/17/19 at 18:17 Dextrose (D50w Syringe) 25 ml Q15M PRN IV DECREASED GLUCOSE; Start 01/17/19 at 18:17 Dextrose (D50w Syringe) 50 ml Q15M PRN IV DECREASED GLUCOSE; Start 01/17/19 at 18:17 Glucagon (Glucagen) 1 mg Q15M PRN IM DECREASED GLUCOSE; Start 01/17/19 at 18:17 Glucose (Glutose) 15 gm Q15M PRN BUCCAL DECREASED GLUCOSE; Start 01/17/19 at 18:17 Multivitamins Therapeutic (Theragran) 1 tab DAILY PO Last administered on 01/26/19 07:53; Admin Dose 1 TAB; Start 01/17/19 at 18:17 Zinc Sulfate (Zinc Sulfate) 220 mg DAILY PO Last administered on 01/26/19 07:52; Admin Dose 220 MG; Start 01/17/19 at 18:17 Ascorbic Acid (Vitamin C) 250 mg DAILY PO Last administered on 01/26/19 07:53; Admin Dose 250 MG; Start 01/17/19 at 18:17 Albuterol/ Ipratropium (Duoneb) 3 ml Q6H RESP THERAPY HHN Last administered on 01/28/19 01:20; Admin Dose 3 ML; Start 01/17/19 at 18:17 Multi-Ingredient Ointment (Aquaphor Oint 52.5 Gm) 1 applic BID TOP Last administered on 01/27/19 21:07; Admin Dose 1 APPLIC; Start 01/17/19 at 18:17 Aspirin (Aspirin) 81 mg DAILY PO Last administered on 01/26/19 07:52; Admin Dose 81 MG; Start 01/17/19 at 18:17 Ferrous Sulfate (Ferrous Sulfate (Ec)) 325 mg WITH MEALS PO Last administered on 01/26/19 16:54; Admin Dose 325 MG; Start 01/17/19 at 18:17 Bisacodyl (Dulcolax Supp) 10 mg DAILY PRN LA CONSTIPATION; Start 01/17/19 at 18:17 Zinc Acetate/ Diphenhydramine (Benadryl 2% Cr) 1 applic Q6H PRN TOP ITCHING Last administered on 01/26/19 07:54; Admin Dose 1 APPLIC; Start 01/19/19 at 16:37 Nystatin/ Triamcinolone Acetonide (Mycolog Cr) 1 applic BID TOP Last administered on 01/27/19 21:07; Admin Dose 1 APPLIC; Start 01/19/19 at 22:41 Epoetin Dae-epbx (RETACRIT(non-esrd)) 20,000 unit Mo@1700 SC Last administered on 01/27/19 19:28; Admin Dose 20,000 UNIT; Start 01/20/19 at 17:00 IV Flush (NS 10 ml) 10 ml PRN PRN IV IV PROTOCOL; Start 01/20/19 at 14:30 Cyanocobalamin (Vitamin B12 Inj) 1,000 mcg Q7D IM ; Start 02/03/19 at 09:00 Dextrose 1,000 ml @ 40 mls/hr Q24H IV Last administered on 01/27/19 13:00; Admin Dose 40 MLS/HR; Start 01/26/19 at 13:00 Metoprolol Tartrate (Lopressor) 25 mg BID PO Last administered on 01/26/19at 20:34; Admin Dose 25 MG; Start 01/26/19 at 21:00 Metoprolol Tartrate (Lopressor) 5 mg Q4H PRN IV HR>110 Hold SBP<100; Start 01/26/19 at 14:30 Furosemide (Lasix) 40 mg BID DIURETICS IV Last administered on 01/28/19 05:37; Admin Dose 40 MG; Start 01/27/19 at 18:00 Vancomycin HCl (Vanco Iv Per Pharmacy) VANCOMYCIN PER PHARMACY PER PROTOCOL XX ; Start 01/27/19 at 12:00 Norepinephrine 250 ml @ 1.875 mls/ hr TITRATE IV Last administered on 01/28/19 05:33; Admin Dose 46.875 MLS/HR; Start 01/27/19 at 12:30 Methylprednisolone Sodium Succinate (Solu-Medrol) 40 mg Q8 IV Last administered on 01/28/19 05:37; Admin Dose 40 MG; Start 01/27/19 at 14:00 Enoxaparin Sodium (Lovenox) 60 mg DAILY SC ; Start 01/28/19 at 09:00 Lorazepam (Ativan) 1 mg Q2 PRN IV SEIZURES Last administered on 01/27/19at 23:44; Admin Dose 1 MG; Start 01/27/19 at 14:00 Aztreonam 50 ml @ 100 mls/hr Q12 IVPB Last administered on 01/28/19at 00:57; Admin Dose 100 MLS/HR; Start 01/27/19 at 16:30 Metronidazole 100 ml @ 100 mls/hr Q8 IVPB Last administered on 01/28/19at 05:37; Admin Dose 100 MLS/HR; Start 01/27/19 at 15:00 Vancomycin HCl 250 ml @ 125 mls/hr Q36H IVPB ; Start 01/29/19 at 03:00 Lidocaine HCl/ Dextrose 500 ml @ 15 mls/hr Q24H IV ; Start 01/27/19 at 16:30 Atorvastatin Calcium (Lipitor) 40 mg QHS NGT ; Start 01/28/19 at 21:00 Docusate Sodium (Colace Liquid Cup) 100 mg BID NGT ; Start 01/27/19 at 22:00; Status Hold Terazosin HCl (Hytrin) 10 mg HS NGT ; Start 01/28/19 at 21:00 Levetiracetam 100 ml @ 400 mls/hr Q12 IVPB ; Start 01/28/19 at 09:00 Levothyroxine Sodium (Synthroid) 125 mcg BEFORE BREAKFAST NGT Last administered on 01/28/19at 06:55; Admin Dose 125 MCG; Start 01/28/19 at 07:00 Assessment/Plan Hospital Course (Demo Recall) 1. Atrial fibrillation, currently rate controlled.-off systemic anticoagulation due to anemia. On ASA only now - resumed Eliquis now. 2. Possible congestive heart failure by chest x-ray, which will be diastolic, acute on chronic by most recent echo with an EF of 60%.Spot diuresis as needed. Con't to follow. Euvolemic by exam. 3. Tricuspid regurgitation, moderate by most recent echo. 4. Acute on chronic renal failure - Cr 1.30 - avoid nephrotoxic meds. Dr. Alatorre follow. Stable. 5. Possible pneumonia - on anti-bx now. ID follows On pressors now. 6. History of coronary artery disease, status post coronary artery bypass graft surgery. Treated. 7. Dyslipidemia. 8. Rheumatoid arthritis - Rx per rheumatology. 9. Groin cellulitis. 10. Anemia-worsening again today requiring transfusions PRBC's.Now post-op s/p endoscopy ? findings - H/H at 7.9 - blood Rx as needed. 11. Diabetes mellitus. 12. Sepsis LOU PATINO MD January 28, 2019 08:32
[2019-01-28] MEDS: ASCORBIC ACID 250 MG TAB PO SCH (08:59)
[2019-01-28] MEDS: FOLIC ACID 1 MG TAB PO SCH (09:00)
[2019-01-28] MEDS: ASPIRIN 81 MG TAB PO SCH (09:00)
[2019-01-28] MEDS: MULTIVITAMINS THERAPEUTIC TAB PO SCH (09:00)
[2019-01-28] MEDS: NYSTATIN 30 GM POWDER BTL TOP SCH ×2 (09:00→23:42)
[2019-01-28] MEDS: NYSTATIN/TRIAMCINOLONE 15 GM CR TOP SCH (09:00)
[2019-01-28] MEDS: ENOXAPARIN 60 MG/0.6 ML SYG SC SCH (09:00)
[2019-01-28] MEDS: LEVETIRACETAM 500 MG (PMX) 100 ML IVPB SCH ×2 (09:00→21:19)
[2019-01-28] MEDS: ZINC SULFATE 220 MG CAP PO SCH (09:00)
[2019-01-28] MEDS: AQUAPHOR 52.5 GM OINT TOP SCH ×2 (09:01→22:49)
[2019-01-28] MEDS: BALSAM PERU/CASTOR OIL 60 GM TUBE TOP SCH ×2 (09:01→21:24)
--- NOTE | 2019-01-28 09:06 | CONS ---
Consult Date/Type/Reason Admit Date/Time Jan 17, 2019 at 15:58 Initial Consult Date 01/18/19 Type of Consult Pulmonary Requesting Provider: IVAN AKHTAR MD Date/Time of Note DATE: 01/28/19 TIME: 09:03 Subjective Patient transferred to intensive care yesterday had central line placed continues vasopressor support. Remains somnolent with moderate secretions. 3 seizures per nursing staff. CODE STATUS is full code. Objective Vital Signs Date Temp Pulse Resp B/P (MAP) Pulse Ox O2 O2 Flow FiO2 Time Delivery Rate 01/28/19 98 22 100 Nasal 2.0 08:48 Cannula 01/28/19 102/56 07:15 (71) 01/28/19 97.8 04:00 01/27/19 30 14:25 Intake and Output 01/27/19 01/27/19 01/28/19 1515:00 23:00 07:00 IntakeIntake Total 120 ml 953.725 ml 858.125 ml OutputOutput Total 5 ml 140 ml 330 ml BalanceBalance 115 ml 813.725 ml 528.125 ml Exam PHYSICAL EXAMINATION: GENERAL: Elderly-appearing gentleman, largely somnolent on nasal cannula. NECK: Supple. No JVD or lymphadenopathy. CARDIAC: S1, S2. No added sounds or murmurs. CHEST: Diminished air entry bilaterally. ABDOMEN: Soft, nontender. No guarding or rebound. EXTREMITIES: No cyanosis, clubbing. A 1+ edema. NEUROLOGIC: Unable to assess. Vent Setting Fraction of Inspired Oxygen pe: 21 Results/Medications Result Diagram: 01/27/19 1038 01/27/19 1038 Results 24 hrs Laboratory Tests Test 01/27/19 10:19 01/27/19 10:24 01/27/19 10:38 01/27/19 11:09 Bedside Glucose 113 Blood Gas Blood arterial Specimen Source Arterial Blood 01/27/2019 10:30: Date Drawn 29 AM Arterial Blood 7.285 *L pH (Temp corrected ) Arterial Blood 51.4 H pCO2 (Temp correct) Arterial Blood 147.3 H pO2 (Temp corrected ) Arterial Blood 23.9 HCO3 Arterial Blood -2.8 Base Excess Arterial Blood 98.3 Oxygen Saturati on Manuel Test N/A Arterial Blood Right Brachial Gas Puncture Site Arterial 0.3 Blood Carboxyhe moglobin Arterial Blood 0.5 Methemoglobin Blood Gas A-a 28.0 H O2 Differential Oxyhemoglobin 97.5 Percent Blood Gas 37.0 Temperature Blood Gas NASAL CANNULA Modality FiO2 33.0 Blood Gas JENNIFER WONG Critical Value Read Back Blood Gas CW Notified Whom Blood Gas 01/27/2019 10:47: Notified Time 56 AM White Blood 12.8 H Count Red Blood Count 2.69 L Hemoglobin 7.9 L Hematocrit 25.4 L Mean 94.4 Corpuscular Volume Mean 29.4 Corpuscular Hemoglobin Mean 31.1 L Corpuscular Hemoglobin Conc ent Red Cell 18.2 H Distribution Width Platelet Count 175 Mean Platelet 10.9 H Volume Immature 1.100 H Granulocytes % Neutrophils % 82.6 H Segmented 66 Neutrophils % (Manual) Band 25 H Neutrophils % (Manual) Lymphocytes % 11.0 L Lymphocytes % 4 L (Manual) Reactive 1 H Lymphocytes % (Manual) Monocytes % 4.9 Monocytes % 3 (Manual) Eosinophils % 0.2 Basophils % 0.2 Myelocytes % 1 H (Manual) Nucleated Red 0.2 H Blood Cells % Immature 0.140 H Granulocytes # Neutrophils # 10.6 H Neutrophils # 8.9 H (Manual) Band 3.2 H Neutrophils # Lymphocytes 0.5 L (Manual) Lymphocytes # 1.4 Reactive 0.1 H Lymphocytes # Monocytes # 0.6 Monocytes # 0.3 (Manual) Eosinophils # 0.0 Basophils # 0.0 Myelocytes # 0.1 H Nucleated Red 0.0 Blood Cells # Platelet NORMAL Estimate Giant Platelets 1 H Polychromasia 1+ Hypochromasia 1+ Poikilocytosis 2+ Anisocytosis 2+ Macrocytosis 2+ Target Cells 1+ Sodium Level 140 Potassium Level 3.6 Chloride Level 106 Carbon Dioxide 24 Level Anion Gap 10 Blood Urea 37 H Nitrogen Creatinine 1.30 H Est Glomerular Filtrat Rate mL/min Glucose Level 112 Calcium Level 8.0 L Lab Scanned REFERENCE LAB Report Test 01/27/19 12:16 01/27/19 15:00 01/27/19 18:04 01/27/19 19:27 Bedside Glucose 136 153 157 Blood Gas Blood arterial Specimen Source Arterial Blood 01/27/2019 2:30:3 Date Drawn 8 PM Arterial Blood 7.354 pH (Temp corrected ) Arterial Blood 47.2 H pCO2 (Temp correct) Arterial Blood 103.2 H pO2 (Temp corrected ) Arterial Blood 25.7 HCO3 Arterial Blood 0 Base Excess Arterial Blood 97.4 Oxygen Saturati on Manuel Test ACCEPTAB Arterial Blood Left Radial Gas Puncture Site Arterial 0.1 Blood Carboxyhe moglobin Arterial Blood 0.5 Methemoglobin Blood Gas A-a 55.2 H O2 Differential Oxyhemoglobin 96.8 Percent Blood Gas 37.0 Temperature Blood Gas 18.0 Respiration Rate Blood Gas 18 Actual Respiration Rat e Blood Gas MASK - BIPAP Modality FiO2 30.0 Blood Gas Y CHARLA WONG Critical Value Read Back Blood Gas T [employer] Notified Whom Blood Gas 01/27/2019 2:47:3 Notified Time 4 PM Test 01/27/19 20:56 01/28/19 06:54 01/28/19 07:00 Bedside Glucose 131 165 Blood Gas Blood arterial Specimen Source Arterial Blood 01/28/2019 7:01:5 Date Drawn 5 AM Arterial Blood 7.465 H pH (Temp corrected ) Arterial Blood 36.2 pCO2 (Temp correct) Arterial Blood 71.0 L pO2 (Temp corrected ) Arterial Blood 25.5 HCO3 Arterial Blood 1.8 Base Excess Arterial Blood 95.2 Oxygen Saturati on Manuel Test ACCEPTAB Arterial Blood Right Radial Gas Puncture Site Arterial 0.2 Blood Carboxyhe moglobin Arterial Blood 0.5 Methemoglobin Blood Gas A-a 78.7 H O2 Differential Oxyhemoglobin 94.5 Percent Blood Gas 37.0 Temperature Blood Gas NASAL CANNULA Modality FiO2 27.0 Blood Gas TM Notified Whom Blood Gas 01/28/2019 7:30:2 Notified Time 9 AM Medications Current Medications Lactulose (Enulose) 20 gm DAILY PRN PO CONSTIPATION; Start 01/17/19 at 18:17 Acetaminophen (Tylenol Tab) 650 mg Q4H PRN PO PAIN Last administered on 01/23/19at 22:48; Admin Dose 650 MG; Start 01/17/19 at 18:17 Miscellaneous Information (Pending Santyl Order For Wound Care) This patient ramirez... PRN PRN XX WOUND CARE; Start 01/17/19 at 18:17 Diagnostic Test (Pha) (Accu-Chek) 1 ea AC MEALS AND BEDTIME XX Last administered on 01/28/19at 06:55; Admin Dose 1 EA; Start 01/17/19 at 18:17 Diagnostic Test (Pha) (Accu-Chek) 1 ea 02 XX Last administered on 01/22/19at 02:00; Admin Dose 1 EA; Start 01/17/19 at 18:17 Albuterol/ Ipratropium (Duoneb) 3 ml Q2H RESP THERAPY PRN HHN SHORTNESS OF BREATH; Start 01/17/19 at 18:17 Bisacodyl (Dulcolax) 10 mg BID PRN PO CONSTIPATION; Start 01/17/19 at 18:17 Folic Acid (Folic Acid) 1 mg DAILY PO Last administered on 01/28/19at 09:00; Admin Dose 1 MG; Start 01/17/19 at 18:17 Insulin Aspart (Novolog Insulin Pen) NOVOLOG *MILD* ALGORITHM WITH MEALS BEDTIME SC Last administered on 01/28/19 06:58; Admin Dose 1 UNIT; Start 01/17/19 at 18:17 Latanoprost (Xalatan) 1 drop HS BOTH EYES Last administered on 01/27/19at 23:48; Admin Dose 1 DROP; Start 01/17/19 at 18:17 Nitroglycerin (Nitroglycerin (Sl Tab) 0.4 Mg) 0.4 tab Q5M PRN SL CHEST PAIN; Start 01/17/19 at 18:17 Nystatin (Nystatin Powder) 1 applic BID TOP Last administered on 01/28/19at 09:00; Admin Dose 1 APPLIC; Start 01/17/19 at 18:17 Pantoprazole (Protonix Tab) 40 mg DAILY@06 PO Last administered on 01/27/19at 05:37; Admin Dose 40 MG; Start 01/17/19 at 18:17 IV Flush (NS 3 ml) 3 ml PER PROTOCOL IV ; Start 01/17/19 at 18:17 Miscellaneous Information 1 ea NOTE XX ; Start 01/17/19 at 18:17 Glucose (Glutose) 15 gm Q15M PRN PO DECREASED GLUCOSE; Start 01/17/19 at 18:17 Glucose (Glutose) 22.5 gm Q15M PRN PO DECREASED GLUCOSE; Start 01/17/19 at 18:17 Dextrose (D50w Syringe) 25 ml Q15M PRN IV DECREASED GLUCOSE; Start 01/17/19 at 18:17 Dextrose (D50w Syringe) 50 ml Q15M PRN IV DECREASED GLUCOSE; Start 01/17/19 at 18:17 Glucagon (Glucagen) 1 mg Q15M PRN IM DECREASED GLUCOSE; Start 01/17/19 at 18:17 Glucose (Glutose) 15 gm Q15M PRN BUCCAL DECREASED GLUCOSE; Start 01/17/19 at 18:17 Multivitamins Therapeutic (Theragran) 1 tab DAILY PO Last administered on 01/26/19 07:53; Admin Dose 1 TAB; Start 01/17/19 at 18:17 Zinc Sulfate (Zinc Sulfate) 220 mg DAILY PO Last administered on 01/28/19 09:00; Admin Dose 220 MG; Start 01/17/19 at 18:17 Ascorbic Acid (Vitamin C) 250 mg DAILY PO Last administered on 01/28/19 08:59; Admin Dose 250 MG; Start 01/17/19 at 18:17 Albuterol/ Ipratropium (Duoneb) 3 ml Q6H RESP THERAPY HHN Last administered on 01/28/19 08:47; Admin Dose 3 ML; Start 01/17/19 at 18:17 Multi-Ingredient Ointment (Aquaphor Oint 52.5 Gm) 1 applic BID TOP Last administered on 01/28/19 09:01; Admin Dose 1 APPLIC; Start 01/17/19 at 18:17 Aspirin (Aspirin) 81 mg DAILY PO Last administered on 01/28/19 09:00; Admin Dose 81 MG; Start 01/17/19 at 18:17 Ferrous Sulfate (Ferrous Sulfate (Ec)) 325 mg WITH MEALS PO Last administered on 01/28/19 08:59; Admin Dose 325 MG; Start 01/17/19 at 18:17 Bisacodyl (Dulcolax Supp) 10 mg DAILY PRN MS CONSTIPATION; Start 01/17/19 at 18:17 Zinc Acetate/ Diphenhydramine (Benadryl 2% Cr) 1 applic Q6H PRN TOP ITCHING Last administered on 01/26/19 07:54; Admin Dose 1 APPLIC; Start 01/19/19 at 16:37 Nystatin/ Triamcinolone Acetonide (Mycolog Cr) 1 applic BID TOP Last administered on 01/28/19 09:00; Admin Dose 1 APPLIC; Start 01/19/19 at 22:41 Epoetin Dae-epbx (RETACRIT(non-esrd)) 20,000 unit Mo@1700 SC Last administered on 01/27/19 19:28; Admin Dose 20,000 UNIT; Start 01/20/19 at 17:00 IV Flush (NS 10 ml) 10 ml PRN PRN IV IV PROTOCOL; Start 01/20/19 at 14:30 Cyanocobalamin (Vitamin B12 Inj) 1,000 mcg Q7D IM ; Start 02/03/19 at 09:00 Dextrose 1,000 ml @ 40 mls/hr Q24H IV Last administered on 01/27/19 13:00; Admin Dose 40 MLS/HR; Start 01/26/19 at 13:00 Metoprolol Tartrate (Lopressor) 25 mg BID PO Last administered on 01/26/19 20:34; Admin Dose 25 MG; Start 01/26/19 at 21:00 Metoprolol Tartrate (Lopressor) 5 mg Q4H PRN IV HR>110 Hold SBP<100; Start 01/26/19 at 14:30 Furosemide (Lasix) 40 mg BID DIURETICS IV Last administered on 01/28/19 05:37; Admin Dose 40 MG; Start 01/27/19 at 18:00 Vancomycin HCl (Vanco Iv Per Pharmacy) VANCOMYCIN PER PHARMACY PER PROTOCOL XX ; Start 01/27/19 at 12:00 Norepinephrine 250 ml @ 1.875 mls/ hr TITRATE IV Last administered on 01/28/19 05:33; Admin Dose 46.875 MLS/HR; Start 01/27/19 at 12:30 Methylprednisolone Sodium Succinate (Solu-Medrol) 40 mg Q8 IV Last administered on 01/28/19 05:37; Admin Dose 40 MG; Start 01/27/19 at 14:00 Enoxaparin Sodium (Lovenox) 60 mg DAILY SC ; Start 01/28/19 at 09:00 Lorazepam (Ativan) 1 mg Q2 PRN IV SEIZURES Last administered on 01/27/19 23:44; Admin Dose 1 MG; Start 01/27/19 at 14:00 Aztreonam 50 ml @ 100 mls/hr Q12 IVPB Last administered on 01/28/19 09:00; Admin Dose 100 MLS/HR; Start 01/27/19 at 16:30 Metronidazole 100 ml @ 100 mls/hr Q8 IVPB Last administered on 01/28/19 05:37; Admin Dose 100 MLS/HR; Start 01/27/19 at 15:00 Vancomycin HCl 250 ml @ 125 mls/hr Q36H IVPB ; Start 01/29/19 at 03:00 Lidocaine HCl/ Dextrose 500 ml @ 15 mls/hr Q24H IV ; Start 01/27/19 at 16:30 Atorvastatin Calcium (Lipitor) 40 mg QHS NGT ; Start 01/28/19 at 21:00 Docusate Sodium (Colace Liquid Cup) 100 mg BID NGT ; Start 01/27/19 at 22:00; Status Hold Terazosin HCl (Hytrin) 10 mg HS NGT ; Start 01/28/19 at 21:00 Levetiracetam 100 ml @ 400 mls/hr Q12 IVPB Last administered on 01/28/19at 09:00; Admin Dose 400 MLS/HR; Start 01/28/19 at 09:00 Levothyroxine Sodium (Synthroid) 125 mcg BEFORE BREAKFAST NGT Last administered on 01/28/19at 06:55; Admin Dose 125 MCG; Start 01/28/19 at 07:00 Assessment/Plan Hospital Course (Demo Recall) IMPRESSION 1. Acute hypoxemic respiratory failure likely secondary to combination of volume overload and pneumonia 2. Encephalopathy underlying dementia versus toxic metabolic 3. Valvular heart disease 4. Severe dysphagia 5. Septic shock likely secondary to above 6. Anemia, no active GI bleeding Plan 1. Continue vasopressors titrate to keep map greater than 65 2. Continue broad-spectrum antibiotics 3. Diuretics once he more stable hemodynamically 4. Monitor H&H 5. Palliative care consult regarding goals of care as prognosis is extremely poor patient is high risk of intubation if he gets intubated it is extremely unlikely he will come off mechanical ventilation. Critical care time 40 minutes DIANA MCRAE MD, [facility] January 28, 2019 09:06
--- NOTE | 2019-01-28 09:25 | CONS ---
Assessment/Plan Assessment/Plan Assessment/Plan (Daily) Very ill gentleman who is been admitted to the intensive care unit with sepsis syndrome elevated white blood cell count lactic acidosis, abnormal chest x-ray. History of chronic renal failure. Serious comorbid medical problems indicating a poor outcome including good mental status, low total protein albumin levels multiple comorbid medical problems possible history of immunosuppression seconda ry to rheumatoid arthritis. It is unknown whether not patient was on immune modulators targeted therapy prior to hospitalization. Contact family members established CODE STATUS. Overall prognosis and PPS score indicates poor outcome. Consultation Date/Type/Reason Admit Date/Time Jan 17, 2019 at 15:58 Date/Time of Note DATE: 01/28/19 TIME: 09:20 Hx of Present Illness Patient is an 88-year-old gentleman in the intensive care unit at [facility]. Asked to see patient to speak to family members in p alliative care consultation. Gentleman was admitted to the hospital on January 17, 2019 with a history of recent pneumonia sepsis syndrome past medical history of rheumatoid arthritis chronic obstructive pulmonary disease CABG x2. Patient is a former smoker has type 2 diabetes this information is taken from medical records. Also history of rheumatoid arthritis with joint involvement. According medical records patient had worsening anemia, prior to that he had been transfused during his hospitalization. Developed evidence of sepsis syndrome altered mental status was transferred to the intensive care unit lethargic fluid and electrolyte abnormalities. Other comorbid medical problems are congestive heart failure tricuspid regurgitation, acute and chronic renal failure, recurrent sepsis syndrome. Also with a history of chronic obstructive pulmonary disease., Patient is been placed on noninvasive positive pressure ventilation, broad-spectrum antibiotics have been initiated. He has been seen by multiple consultants. Generating patient has a low performance status, poor nutritional status according to medical records sepsis syndrome altered mental status, indicates an overall poor prognosis. Chest x-ray completed today shows increased bilateral interstitial and alveolar infiltrates concerning for edema multifocal pneumonia or pneumonitis. White blood cell count is 24,000, he moglobin 8.1 hematocrit 25.3. Not participate all information taken from patient's medical records Past Medical History Medical History: congestive heart failure, coronary artery disease, renal disease Home Meds Active Scripts Apixaban* (Eliquis*) 5 Mg Tablet, 2.5 MG PO BID for 30 Days, TAB Prov:IVAN AKHTAR MD 12/20/18 Metoprolol Tartrate* (Lopressor*) 50 Mg Tab, 50 MG PO BID for 30 Days, TAB Prov:COOPER CARO 12/20/18 Reported Medications Furosemide* (Lasix*) 20 Mg Tablet, 20 MG PO BID, TAB 01/05/19 Polyethylene Glycol* (Miralax*) 17 Gm Powd.pack, 17 GM PO DAILY, #30 PACKET 12/15/18 Nifedipine* (Nifedipine ER*) 60 Mg Tablet.sa, 60 MG PO DAILY, TAB.SA 12/15/18 Bisacodyl* (Bisacodyl*) 5 Mg Tablet.dr, 10 MG PO BID PRN for CONSTIPATION, TAB 12/15/18 Pregabalin* (Lyrica*) 25 Mg Capsule, 25 MG PO TID, CAP 12/15/18 Bimatoprost* (Lumigan*) 0.01%-5 Ml Opht Drops, 1 DROP BOTH EYES HS, EA 03/02/18 Cetirizine Hcl* (Cetirizine Hcl*) 10 Mg Tablet, 10 MG PO DAILY, #30 TAB 03/02/18 Insulin Glargine* (Lantus*) 100 Unit/Ml Soln, 10 UNIT SC QHS, #1 VIAL 03/02/18 Ergocalciferol (Vitamin D2) (VITAMIN D2) 2,000 Unit Tablet, 2000 UNIT PO DAILY, TAB 03/02/18 Famotidine* (Famotidine*) 20 Mg Tablet, 20 MG PO DAILY, #30 TAB 03/02/18 Ferrous Sulfate* (Ferrous Sulfate*) 325 Mg Tabec, 325 MG PO BID, TAB 03/02/18 Nitroglycerin* (Nitrostat*) 0.4 Mg Tab.subl, 0.4 MG SL Q5MIN PRN for CHEST PAIN, BOTTLE 03/02/18 Terazosin Hcl* (Terazosin Hcl*) 10 Mg Capsule, 10 MG PO HS, CAP 03/02/18 Levothyroxine Sodium* (Levoxyl*) 125 Mcg Tablet, 125 MCG PO BEFORE BREAKFAST, #30 TAB 03/02/18 Allopurinol* (Allopurinol*) 100 Mg Tablet, 100 MG PO BID, TAB 03/02/18 Atorvastatin* (Atorvastatin*) 40 Mg Tablet, 40 MG PO QHS, #30 TAB 03/02/18 Folic Acid* (Folic Acid*) 1 Mg Tablet, 1 MG PO DAILY, TAB 03/02/18 Medications Current Medications Lactulose (Enulose) 20 gm DAILY PRN PO CONSTIPATION; Start 01/17/19 at 18:17 Acetaminophen (Tylenol Tab) 650 mg Q4H PRN PO PAIN Last administered on 01/23/19 22:48; Admin Dose 650 MG; Start 01/17/19 at 18:17 Miscellaneous Information (Pending [facility] Order For Wound Care) This patient ramirez... PRN PRN XX WOUND CARE; Start 01/17/19 at 18:17 Diagnostic Test (Pha) (Accu-Chek) 1 ea AC MEALS AND BEDTIME XX Last administered on 01/28/19 06:55; Admin Dose 1 EA; Start 01/17/19 at 18:17 Diagnostic Test (Pha) (Accu-Chek) 1 ea 02 XX Last administered on 01/22/19 02:00; Admin Dose 1 EA; Start 01/17/19 at 18:17 Albuterol/ Ipratropium (Duoneb) 3 ml Q2H RESP THERAPY PRN HHN SHORTNESS OF BREATH; Start 01/17/19 at 18:17 Bisacodyl (Dulcolax) 10 mg BID PRN PO CONSTIPATION; Start 01/17/19 at 18:17 Folic Acid (Folic Acid) 1 mg DAILY PO Last administered on 01/28/19 09:00; Admin Dose 1 MG; Start 01/17/19 at 18:17 Insulin Aspart (Novolog Insulin Pen) NOVOLOG *MILD* ALGORITHM WITH MEALS BEDTIME SC Last administered on 01/28/19 06:58; Admin Dose 1 UNIT; Start 01/17/19 at 18:17 Latanoprost (Xalatan) 1 drop HS BOTH EYES Last administered on 01/27/19 23:48; Admin Dose 1 DROP; Start 01/17/19 at 18:17 Nitroglycerin (Nitroglycerin (Sl Tab) 0.4 Mg) 0.4 tab Q5M PRN SL CHEST PAIN; Start 01/17/19 at 18:17 Nystatin (Nystatin Powder) 1 applic BID TOP Last administered on 01/28/19 09:00; Admin Dose 1 APPLIC; Start 01/17/19 at 18:17 Pantoprazole (Protonix Tab) 40 mg DAILY@06 PO Last administered on 01/27/19 05:37; Admin Dose 40 MG; Start 01/17/19 at 18:17 IV Flush (NS 3 ml) 3 ml PER PROTOCOL IV ; Start 01/17/19 at 18:17 Miscellaneous Information 1 ea NOTE XX ; Start 01/17/19 at 18:17 Glucose (Glutose) 15 gm Q15M PRN PO DECREASED GLUCOSE; Start 01/17/19 at 18:17 Glucose (Glutose) 22.5 gm Q15M PRN PO DECREASED GLUCOSE; Start 01/17/19 at 18:17 Dextrose (D50w Syringe) 25 ml Q15M PRN IV DECREASED GLUCOSE; Start 01/17/19 at 18:17 Dextrose (D50w Syringe) 50 ml Q15M PRN IV DECREASED GLUCOSE; Start 01/17/19 at 18:17 Glucagon (Glucagen) 1 mg Q15M PRN IM DECREASED GLUCOSE; Start 01/17/19 at 18:17 Glucose (Glutose) 15 gm Q15M PRN BUCCAL DECREASED GLUCOSE; Start 01/17/19 at 18:17 Multivitamins Therapeutic (Theragran) 1 tab DAILY PO Last administered on 01/26/19 07:53; Admin Dose 1 TAB; Start 01/17/19 at 18:17 Zinc Sulfate (Zinc Sulfate) 220 mg DAILY PO Last administered on 01/28/19 09:00; Admin Dose 220 MG; Start 01/17/19 at 18:17 Ascorbic Acid (Vitamin C) 250 mg DAILY PO Last administered on 01/28/19 08:59; Admin Dose 250 MG; Start 01/17/19 at 18:17 Albuterol/ Ipratropium (Duoneb) 3 ml Q6H RESP THERAPY HHN Last administered on 01/28/19 08:47; Admin Dose 3 ML; Start 01/17/19 at 18:17 Multi-Ingredient Ointment (Aquaphor Oint 52.5 Gm) 1 applic BID TOP Last administered on 01/28/19 09:01; Admin Dose 1 APPLIC; Start 01/17/19 at 18:17 Aspirin (Aspirin) 81 mg DAILY PO Last administered on 01/28/19 09:00; Admin Dose 81 MG; Start 01/17/19 at 18:17 Ferrous Sulfate (Ferrous Sulfate (Ec)) 325 mg WITH MEALS PO Last administered on 01/28/19 08:59; Admin Dose 325 MG; Start 01/17/19 at 18:17 Bisacodyl (Dulcolax Supp) 10 mg DAILY PRN AL CONSTIPATION; Start 01/17/19 at 18:17 Zinc Acetate/ Diphenhydramine (Benadryl 2% Cr) 1 applic Q6H PRN TOP ITCHING Last administered on 01/26/19 07:54; Admin Dose 1 APPLIC; Start 01/19/19 at 16:37 Nystatin/ Triamcinolone Acetonide (Mycolog Cr) 1 applic BID TOP Last administered on 01/28/19 09:00; Admin Dose 1 APPLIC; Start 01/19/19 at 22:41 Epoetin Dae-epbx (RETACRIT(non-esrd)) 20,000 unit Mo@1700 SC Last administered on 01/27/19 19:28; Admin Dose 20,000 UNIT; Start 01/20/19 at 17:00 IV Flush (NS 10 ml) 10 ml PRN PRN IV IV PROTOCOL; Start 01/20/19 at 14:30 Cyanocobalamin (Vitamin B12 Inj) 1,000 mcg Q7D IM ; Start 02/03/19 at 09:00 Dextrose 1,000 ml @ 40 mls/hr Q24H IV Last administered on 01/27/19 13:00; Admin Dose 40 MLS/HR; Start 01/26/19 at 13:00 Metoprolol Tartrate (Lopressor) 25 mg BID PO Last administered on 01/26/19at 20:34; Admin Dose 25 MG; Start 01/26/19 at 21:00 Metoprolol Tartrate (Lopressor) 5 mg Q4H PRN IV HR>110 Hold SBP<100; Start 01/26/19 at 14:30 Furosemide (Lasix) 40 mg BID DIURETICS IV Last administered on 01/28/19 05:37; Admin Dose 40 MG; Start 01/27/19 at 18:00 Vancomycin HCl (Vanco Iv Per Pharmacy) VANCOMYCIN PER PHARMACY PER PROTOCOL XX ; Start 01/27/19 at 12:00 Norepinephrine 250 ml @ 1.875 mls/ hr TITRATE IV Last administered on 01/28/19 05:33; Admin Dose 46.875 MLS/HR; Start 01/27/19 at 12:30 Methylprednisolone Sodium Succinate (Solu-Medrol) 40 mg Q8 IV Last administered on 01/28/19at 05:37; Admin Dose 40 MG; Start 01/27/19 at 14:00 Enoxaparin Sodium (Lovenox) 60 mg DAILY SC ; Start 01/28/19 at 09:00 Lorazepam (Ativan) 1 mg Q2 PRN IV SEIZURES Last administered on 01/27/19at 23:44; Admin Dose 1 MG; Start 01/27/19 at 14:00 Aztreonam 50 ml @ 100 mls/hr Q12 IVPB Last administered on 01/28/19at 09:00; Admin Dose 100 MLS/HR; Start 01/27/19 at 16:30 Metronidazole 100 ml @ 100 mls/hr Q8 IVPB Last administered on 01/28/19at 05:37; Admin Dose 100 MLS/HR; Start 01/27/19 at 15:00 Vancomycin HCl 250 ml @ 125 mls/hr Q36H IVPB ; Start 01/29/19 at 03:00 Lidocaine HCl/ Dextrose 500 ml @ 15 mls/hr Q24H IV ; Start 01/27/19 at 16:30 Atorvastatin Calcium (Lipitor) 40 mg QHS NGT ; Start 01/28/19 at 21:00 Docusate Sodium (Colace Liquid Cup) 100 mg BID NGT ; Start 01/27/19 at 22:00; Status Hold Terazosin HCl (Hytrin) 10 mg HS NGT ; Start 01/28/19 at 21:00 Levetiracetam 100 ml @ 400 mls/hr Q12 IVPB Last administered on 01/28/19at 09:00; Admin Dose 400 MLS/HR; Start 01/28/19 at 09:00 Levothyroxine Sodium (Synthroid) 125 mcg BEFORE BREAKFAST NGT Last administered on 01/28/19at 06:55; Admin Dose 125 MCG; Start 01/28/19 at 07:00 Allergies: Coded Allergies: Penicillins (Verified Allergy, Severe, shortness of breath, 01/27/19) Sulfa (Sulfonamide Antibiotics) (Verified Allergy, Severe, Shortness of breath, 01/27/19) sulfadiazine (Verified Allergy, Severe, shortness of breath, 01/27/19) Past Surgical History Past Surgical Hx: angioplasty, endoscopy, other (stent) Social History Alcohol Use: none Smoking Status: Former smoker Drug Use: none Exam/Review of Systems Exam Vitals Vital Signs Date Temp Pulse Resp B/P (MAP) Pulse Ox O2 O2 Flow FiO2 Time Delivery Rate 01/28/19 98 22 100 Nasal 2.0 08:48 Cannula 01/28/19 102/56 07:15 (71) 01/28/19 97.8 04:00 01/27/19 30 14:25 Intake and Output 01/27/19 01/27/19 01/28/19 1515:00 23:00 07:00 IntakeIntake Total 120 ml 953.725 ml 858.125 ml OutputOutput Total 5 ml 140 ml 330 ml BalanceBalance 115 ml 813.725 ml 528.125 ml Constitutional: non-verbal, frail Head: normocephalic, atraumatic, other (Bullous rash scalp bilateral temporal regions); No lacerations, No hematomas Eyes: nl lids, PERRL ENMT: nl external ears & nose, nl lips & teeth, nl nasal mucosa & septum Neck: supple, non-tender Respiratory: congested cough, crackles/rales Cardiovascular: regular rate and rhythm, nl pulses Gastrointestinal: soft, nl liver, spleen, non-tender Neurological: lethargic, other (Cannot participate in neurological examination mental status depressed gazes out in space no spontaneous purposeful movements no response to verbal or tactile stimulation sluggish bilateral oculocephalics spontaneously breathing) Skin: other (Dry non-excoriated, discolored dark circumferential lesions bilateral upper and lower extremities scalp bilateral head and neck, anterior chest wall erythema) Results Result Diagram: 01/28/19 0846 01/27/19 1038 Results 24hrs Laboratory Tests Test 01/27/19 10:19 01/27/19 10:24 01/27/19 10:38 01/27/19 11:09 Bedside Glucose 113 Blood Gas Blood arterial Specimen Source Arterial Blood 01/27/2019 10:30: Date Drawn 29 AM Arterial Blood 7.285 *L pH (Temp corrected ) Arterial Blood 51.4 H pCO2 (Temp correct) Arterial Blood 147.3 H pO2 (Temp corrected ) Arterial Blood 23.9 HCO3 Arterial Blood -2.8 Base Excess Arterial Blood 98.3 Oxygen Saturati on Manuel Test N/A Arterial Blood Right Brachial Gas Puncture Site Arterial 0.3 Blood Carboxyhe moglobin Arterial Blood 0.5 Methemoglobin Blood Gas A-a 28.0 H O2 Differential Oxyhemoglobin 97.5 Percent Blood Gas 37.0 Temperature Blood Gas NASAL CANNULA Modality FiO2 33.0 Blood Gas JENNIFER WONG Critical Value Read Back Blood Gas Notified Whom Blood Gas 01/27/2019 10:47: Notified Time 56 AM White Blood 12.8 H Count Red Blood Count 2.69 L Hemoglobin 7.9 L Hematocrit 25.4 L Mean 94.4 Corpuscular Volume Mean 29.4 Corpuscular Hemoglobin Mean 31.1 L Corpuscular Hemoglobin Conc ent Red Cell 18.2 H Distribution Width Platelet Count 175 Mean Platelet 10.9 H Volume Immature 1.100 H Granulocytes % Neutrophils % 82.6 H Segmented 66 Neutrophils % (Manual) Band 25 H Neutrophils % (Manual) Lymphocytes % 11.0 L Lymphocytes % 4 L (Manual) Reactive 1 H Lymphocytes % (Manual) Monocytes % 4.9 Monocytes % 3 (Manual) Eosinophils % 0.2 Basophils % 0.2 Myelocytes % 1 H (Manual) Nucleated Red 0.2 H Blood Cells % Immature 0.140 H Granulocytes # Neutrophils # 10.6 H Neutrophils # 8.9 H (Manual) Band 3.2 H Neutrophils # Lymphocytes 0.5 L (Manual) Lymphocytes # 1.4 Reactive 0.1 H Lymphocytes # Monocytes # 0.6 Monocytes # 0.3 (Manual) Eosinophils # 0.0 Basophils # 0.0 Myelocytes # 0.1 H Nucleated Red 0.0 Blood Cells # Platelet NORMAL Estimate Giant Platelets 1 H Polychromasia 1+ Hypochromasia 1+ Poikilocytosis 2+ Anisocytosis 2+ Macrocytosis 2+ Target Cells 1+ Sodium Level 140 Potassium Level 3.6 Chloride Level 106 Carbon Dioxide 24 Level Anion Gap 10 Blood Urea 37 H Nitrogen Creatinine 1.30 H Est Glomerular Filtrat Rate mL/min Glucose Level 112 Calcium Level 8.0 L Lab Scanned REFERENCE LAB Report Test 01/27/19 12:16 01/27/19 15:00 01/27/19 18:04 01/27/19 19:27 Bedside Glucose 136 153 157 Blood Gas Blood arterial Specimen Source Arterial Blood 01/27/2019 2:30:3 Date Drawn 8 PM Arterial Blood 7.354 pH (Temp corrected ) Arterial Blood 47.2 H pCO2 (Temp correct) Arterial Blood 103.2 H pO2 (Temp corrected ) Arterial Blood 25.7 HCO3 Arterial Blood 0 Base Excess Arterial Blood 97.4 Oxygen Saturati on Manuel Test ACCEPTAB Arterial Blood Left Radial Gas Puncture Site Arterial 0.1 Blood Carboxyhe moglobin Arterial Blood 0.5 Methemoglobin Blood Gas A-a 55.2 H O2 Differential Oxyhemoglobin 96.8 Percent Blood Gas 37.0 Temperature Blood Gas 18.0 Respiration Rate Blood Gas 18 Actual Respiration Rat e Blood Gas MASK - BIPAP Modality FiO2 30.0 Blood Gas Y CHARLA WONG Critical Value Read Back Blood Gas T [facility] Notified Whom Blood Gas 01/27/2019 2:47:3 Notified Time 4 PM Test 01/27/19 20:56 01/28/19 06:54 01/28/19 07:00 01/28/19 08:46 Bedside Glucose 131 165 Blood Gas Blood arterial Specimen Source Arterial Blood 01/28/2019 7:01:5 Date Drawn 5 AM Arterial Blood 7.465 H pH (Temp corrected ) Arterial Blood 36.2 pCO2 (Temp correct) Arterial Blood 71.0 L pO2 (Temp corrected ) Arterial Blood 25.5 HCO3 Arterial Blood 1.8 Base Excess Arterial Blood 95.2 Oxygen Saturati on Manuel Test ACCEPTAB Arterial Blood Right Radial Gas Puncture Site Arterial 0.2 Blood Carboxyhe moglobin Arterial Blood 0.5 Methemoglobin Blood Gas A-a 78.7 H O2 Differential Oxyhemoglobin 94.5 Percent Blood Gas 37.0 Temperature Blood Gas NASAL CANNULA Modality FiO2 27.0 Blood Gas TM Notified Whom Blood Gas 01/28/2019 7:30:2 Notified Time 9 AM White Blood 24.1 #H Count Red Blood Count 2.78 L Hemoglobin 8.1 L Hematocrit 25.3 L Mean 91.0 Corpuscular Volume Mean 29.1 Corpuscular Hemoglobin Mean 32.0 Corpuscular Hemoglobin Conc ent Red Cell 18.2 H Distribution Width Platelet Count 250 # Mean Platelet 10.9 H Volume Immature 1.700 H Granulocytes % Neutrophils % 89.1 H Lymphocytes % 7.3 L Monocytes % 1.5 Eosinophils % 0.0 Basophils % 0.4 Nucleated Red 0.2 H Blood Cells % Immature 0.410 H Granulocytes # Neutrophils # 21.5 H Lymphocytes # 1.8 Monocytes # 0.4 Eosinophils # 0.0 Basophils # 0.1 Nucleated Red 0.0 Blood Cells # Medications Medication Current Medications Lactulose (Enulose) 20 gm DAILY PRN PO CONSTIPATION; Start 01/17/19 at 18:17 Acetaminophen (Tylenol Tab) 650 mg Q4H PRN PO PAIN Last administered on 01/23/19 22:48; Admin Dose 650 MG; Start 01/17/19 at 18:17 Miscellaneous Information (Pending [facility] Order For Wound Care) This patient ramirez... PRN PRN XX WOUND CARE; Start 01/17/19 at 18:17 Diagnostic Test (Pha) (Accu-Chek) 1 ea AC MEALS AND BEDTIME XX Last administered on 01/28/19 06:55; Admin Dose 1 EA; Start 01/17/19 at 18:17 Diagnostic Test (Pha) (Accu-Chek) 1 ea 02 XX Last administered on 01/22/19 02:00; Admin Dose 1 EA; Start 01/17/19 at 18:17 Albuterol/ Ipratropium (Duoneb) 3 ml Q2H RESP THERAPY PRN HHN SHORTNESS OF BREATH; Start 01/17/19 at 18:17 Bisacodyl (Dulcolax) 10 mg BID PRN PO CONSTIPATION; Start 01/17/19 at 18:17 Folic Acid (Folic Acid) 1 mg DAILY PO Last administered on 01/28/19 09:00; Admin Dose 1 MG; Start 01/17/19 at 18:17 Insulin Aspart (Novolog Insulin Pen) NOVOLOG *MILD* ALGORITHM WITH MEALS BEDTIME SC Last administered on 01/28/19 06:58; Admin Dose 1 UNIT; Start 01/17/19 at 18:17 Latanoprost (Xalatan) 1 drop HS BOTH EYES Last administered on 01/27/19 23:48; Admin Dose 1 DROP; Start 01/17/19 at 18:17 Nitroglycerin (Nitroglycerin (Sl Tab) 0.4 Mg) 0.4 tab Q5M PRN SL CHEST PAIN; Start 01/17/19 at 18:17 Nystatin (Nystatin Powder) 1 applic BID TOP Last administered on 01/28/19 09:00; Admin Dose 1 APPLIC; Start 01/17/19 at 18:17 Pantoprazole (Protonix Tab) 40 mg DAILY@06 PO Last administered on 01/27/19 05:37; Admin Dose 40 MG; Start 01/17/19 at 18:17 IV Flush (NS 3 ml) 3 ml PER PROTOCOL IV ; Start 01/17/19 at 18:17 Miscellaneous Information 1 ea NOTE XX ; Start 01/17/19 at 18:17 Glucose (Glutose) 15 gm Q15M PRN PO DECREASED GLUCOSE; Start 01/17/19 at 18:17 Glucose (Glutose) 22.5 gm Q15M PRN PO DECREASED GLUCOSE; Start 01/17/19 at 18:17 Dextrose (D50w Syringe) 25 ml Q15M PRN IV DECREASED GLUCOSE; Start 01/17/19 at 18:17 Dextrose (D50w Syringe) 50 ml Q15M PRN IV DECREASED GLUCOSE; Start 01/17/19 at 18:17 Glucagon (Glucagen) 1 mg Q15M PRN IM DECREASED GLUCOSE; Start 01/17/19 at 18:17 Glucose (Glutose) 15 gm Q15M PRN BUCCAL DECREASED GLUCOSE; Start 01/17/19 at 18:17 Multivitamins Therapeutic (Theragran) 1 tab DAILY PO Last administered on 01/26/19 07:53; Admin Dose 1 TAB; Start 01/17/19 at 18:17 Zinc Sulfate (Zinc Sulfate) 220 mg DAILY PO Last administered on 01/28/19 09:00; Admin Dose 220 MG; Start 01/17/19 at 18:17 Ascorbic Acid (Vitamin C) 250 mg DAILY PO Last administered on 01/28/19 08:59; Admin Dose 250 MG; Start 01/17/19 at 18:17 Albuterol/ Ipratropium (Duoneb) 3 ml Q6H RESP THERAPY HHN Last administered on 01/28/19 08:47; Admin Dose 3 ML; Start 01/17/19 at 18:17 Multi-Ingredient Ointment (Aquaphor Oint 52.5 Gm) 1 applic BID TOP Last administered on 01/28/19 09:01; Admin Dose 1 APPLIC; Start 01/17/19 at 18:17 Aspirin (Aspirin) 81 mg DAILY PO Last administered on 01/28/19 09:00; Admin Dose 81 MG; Start 01/17/19 at 18:17 Ferrous Sulfate (Ferrous Sulfate (Ec)) 325 mg WITH MEALS PO Last administered on 01/28/19 08:59; Admin Dose 325 MG; Start 01/17/19 at 18:17 Bisacodyl (Dulcolax Supp) 10 mg DAILY PRN AL CONSTIPATION; Start 01/17/19 at 18:17 Zinc Acetate/ Diphenhydramine (Benadryl 2% Cr) 1 applic Q6H PRN TOP ITCHING Last administered on 01/26/19at 07:54; Admin Dose 1 APPLIC; Start 01/19/19 at 16:37 Nystatin/ Triamcinolone Acetonide (Mycolog Cr) 1 applic BID TOP Last administered on 01/28/19 09:00; Admin Dose 1 APPLIC; Start 01/19/19 at 22:41 Epoetin Dae-epbx (RETACRIT(non-esrd)) 20,000 unit Mo@1700 SC Last administered on 01/27/19 19:28; Admin Dose 20,000 UNIT; Start 01/20/19 at 17:00 IV Flush (NS 10 ml) 10 ml PRN PRN IV IV PROTOCOL; Start 01/20/19 at 14:30 Cyanocobalamin (Vitamin B12 Inj) 1,000 mcg Q7D IM ; Start 02/03/19 at 09:00 Dextrose 1,000 ml @ 40 mls/hr Q24H IV Last administered on 01/27/19at 13:00; Admin Dose 40 MLS/HR; Start 01/26/19 at 13:00 Metoprolol Tartrate (Lopressor) 25 mg BID PO Last administered on 01/26/19at 20:34; Admin Dose 25 MG; Start 01/26/19 at 21:00 Metoprolol Tartrate (Lopressor) 5 mg Q4H PRN IV HR>110 Hold SBP<100; Start 01/26/19 at 14:30 Furosemide (Lasix) 40 mg BID DIURETICS IV Last administered on 01/28/19 05:37; Admin Dose 40 MG; Start 01/27/19 at 18:00 Vancomycin HCl (Vanco Iv Per Pharmacy) VANCOMYCIN PER PHARMACY PER PROTOCOL XX ; Start 01/27/19 at 12:00 Norepinephrine 250 ml @ 1.875 mls/ hr TITRATE IV Last administered on 01/28/19at 05:33; Admin Dose 46.875 MLS/HR; Start 01/27/19 at 12:30 Methylprednisolone Sodium Succinate (Solu-Medrol) 40 mg Q8 IV Last administered on 01/28/19at 05:37; Admin Dose 40 MG; Start 01/27/19 at 14:00 Enoxaparin Sodium (Lovenox) 60 mg DAILY SC ; Start 01/28/19 at 09:00 Lorazepam (Ativan) 1 mg Q2 PRN IV SEIZURES Last administered on 01/27/19at 23:44; Admin Dose 1 MG; Start 01/27/19 at 14:00 Aztreonam 50 ml @ 100 mls/hr Q12 IVPB Last administered on 01/28/19at 09:00; Admin Dose 100 MLS/HR; Start 01/27/19 at 16:30 Metronidazole 100 ml @ 100 mls/hr Q8 IVPB Last administered on 01/28/19at 05:37; Admin Dose 100 MLS/HR; Start 01/27/19 at 15:00 Vancomycin HCl 250 ml @ 125 mls/hr Q36H IVPB ; Start 01/29/19 at 03:00 Lidocaine HCl/ Dextrose 500 ml @ 15 mls/hr Q24H IV ; Start 01/27/19 at 16:30 Atorvastatin Calcium (Lipitor) 40 mg QHS NGT ; Start 01/28/19 at 21:00 Docusate Sodium (Colace Liquid Cup) 100 mg BID NGT ; Start 01/27/19 at 22:00; Status Hold Terazosin HCl (Hytrin) 10 mg HS NGT ; Start 01/28/19 at 21:00 Levetiracetam 100 ml @ 400 mls/hr Q12 IVPB Last administered on 01/28/19at 09:00; Admin Dose 400 MLS/HR; Start 01/28/19 at 09:00 Levothyroxine Sodium (Synthroid) 125 mcg BEFORE BREAKFAST NGT Last administered on 01/28/19at 06:55; Admin Dose 125 MCG; Start 01/28/19 at 07:00 MARGARITO WILSON January 28, 2019 09:25
--- NOTE | 2019-01-28 09:47 | CONS ---
Assessment/Plan Assessment/Plan Hospital Course (Demo Recall) 88 yo male with multiple medical problems including DM, CRF, RA, PVD and chronic afib on Eliquis who presented to [facility] 01/05/19 with severe normocytic anemia and Hg ~7. 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 # Anemia-normocytic -Hg ok at 8.1 -Multifactorial at this time due to iron deficiency, vitamin b12 deficiency and also likely anemia of chronic kidney disease and inflammation. Elevated Methylmalonic acid level noted -Patient still has low iron level even though ferritin is elevated. Ferritin likely elevated due to acute phase reactant. pt is now s/p IV iron -continue vitamin b12 weekly as vitamin b12 was low normal and methylmalonic acid was elevated. Continue folate as well. -No evidence of hemolysis at this time. -Transfuse to keep Hgb > 7. 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 -This may be a pseudocyst or a precancerous pancreatic lesion. -It has been growing in size but patient is asymptomatic. EUS with biopsy is recommended and can either be done inpatient or oupatient setting. -The patient at this time is unlikely a candidate for a whipple surgery however. Thank you to Dr. Alatorre for allowing [facility] to participate in the care of this patient. A total of 40 minutes was spent in consultation with this patient and all his questions were answered. Consultation Date/Type/Reason Admit Date/Time Jan 17, 2019 at 15:58 Initial Consult Date 01/18/19 Type of Consult hematology Reason for Consultation anemia Requesting Provider: IVAN AKHTAR MD Date/Time of Note DATE: 01/28/19 TIME: 09:43 24 HR Interval Summary Free Text/Dictation came to ICU for seizures. Has since started Keppra. not intubated and not on pressor support Exam/Review of Systems Exam Vitals Vital Signs Date Temp Pulse Resp B/P (MAP) Pulse Ox O2 O2 Flow FiO2 Time Delivery Rate 01/28/19 98 22 100 Nasal 2.0 08:48 Cannula 01/28/19 102/56 07:15 (71) 01/28/19 97.8 04:00 01/27/19 30 14:25 Intake and Output 01/27/19 01/27/19 01/28/19 1515:00 23:00 07:00 IntakeIntake Total 120 ml 953.725 ml 858.125 ml OutputOutput Total 5 ml 140 ml 330 ml BalanceBalance 115 ml 813.725 ml 528.125 ml Constitutional: alert, distress, frail Psych: confusion, depression Head: normocephalic Eyes: nl conjunctiva ENMT: nl external ears & nose Neck: supple Respiratory: clear to auscultation Cardiovascular: regular rate and rhythm Gastrointestinal: soft Musculoskeletal: nl extremities to inspection Results Result Diagram: 01/28/19 0846 01/27/19 1038 Results 24hrs Laboratory Tests Test 01/27/19 10:19 01/27/19 10:24 01/27/19 10:38 01/27/19 11:09 Bedside Glucose 113 Blood Gas Blood arterial Specimen Source Arterial Blood 01/27/2019 10:30: Date Drawn 29 AM Arterial Blood 7.285 *L pH (Temp corrected ) Arterial Blood 51.4 H pCO2 (Temp correct) Arterial Blood 147.3 H pO2 (Temp corrected ) Arterial Blood 23.9 HCO3 Arterial Blood -2.8 Base Excess Arterial Blood 98.3 Oxygen Saturati on Manuel Test N/A Arterial Blood Right Brachial Gas Puncture Site Arterial 0.3 Blood Carboxyhe moglobin Arterial Blood 0.5 Methemoglobin Blood Gas A-a 28.0 H O2 Differential Oxyhemoglobin 97.5 Percent Blood Gas 37.0 Temperature Blood Gas NASAL CANNULA Modality FiO2 33.0 Blood Gas JENNIFER WONG Critical Value Read Back Blood Gas CW Notified Whom Blood Gas 01/27/2019 10:47: Notified Time 56 AM White Blood 12.8 H Count Red Blood Count 2.69 L Hemoglobin 7.9 L Hematocrit 25.4 L Mean 94.4 Corpuscular Volume Mean 29.4 Corpuscular Hemoglobin Mean 31.1 L Corpuscular Hemoglobin Conc ent Red Cell 18.2 H Distribution Width Platelet Count 175 Mean Platelet 10.9 H Volume Immature 1.100 H Granulocytes % Neutrophils % 82.6 H Segmented 66 Neutrophils % (Manual) Band 25 H Neutrophils % (Manual) Lymphocytes % 11.0 L Lymphocytes % 4 L (Manual) Reactive 1 H Lymphocytes % (Manual) Monocytes % 4.9 Monocytes % 3 (Manual) Eosinophils % 0.2 Basophils % 0.2 Myelocytes % 1 H (Manual) Nucleated Red 0.2 H Blood Cells % Immature 0.140 H Granulocytes # Neutrophils # 10.6 H Neutrophils # 8.9 H (Manual) Band 3.2 H Neutrophils # Lymphocytes 0.5 L (Manual) Lymphocytes # 1.4 Reactive 0.1 H Lymphocytes # Monocytes # 0.6 Monocytes # 0.3 (Manual) Eosinophils # 0.0 Basophils # 0.0 Myelocytes # 0.1 H Nucleated Red 0.0 Blood Cells # Platelet NORMAL Estimate Giant Platelets 1 H Polychromasia 1+ Hypochromasia 1+ Poikilocytosis 2+ Anisocytosis 2+ Macrocytosis 2+ Target Cells 1+ Sodium Level 140 Potassium Level 3.6 Chloride Level 106 Carbon Dioxide 24 Level Anion Gap 10 Blood Urea 37 H Nitrogen Creatinine 1.30 H Est Glomerular Filtrat Rate mL/min Glucose Level 112 Calcium Level 8.0 L Lab Scanned REFERENCE LAB Report Test 01/27/19 12:16 01/27/19 15:00 01/27/19 18:04 01/27/19 19:27 Bedside Glucose 136 153 157 Blood Gas Blood arterial Specimen Source Arterial Blood 01/27/2019 2:30:3 Date Drawn 8 PM Arterial Blood 7.354 pH (Temp corrected ) Arterial Blood 47.2 H pCO2 (Temp correct) Arterial Blood 103.2 H pO2 (Temp corrected ) Arterial Blood 25.7 HCO3 Arterial Blood 0 Base Excess Arterial Blood 97.4 Oxygen Saturati on Manuel Test ACCEPTAB Arterial Blood Left Radial Gas Puncture Site Arterial 0.1 Blood Carboxyhe moglobin Arterial Blood 0.5 Methemoglobin Blood Gas A-a 55.2 H O2 Differential Oxyhemoglobin 96.8 Percent Blood Gas 37.0 Temperature Blood Gas 18.0 Respiration Rate Blood Gas 18 Actual Respiration Rat e Blood Gas MASK - BIPAP Modality FiO2 30.0 Blood Gas Y CHARLA RN Critical Value Read Back Blood Gas T LIZA [employer] Notified Whom Blood Gas 01/27/2019 2:47:3 Notified Time 4 PM Test 01/27/19 20:56 01/28/19 06:54 01/28/19 07:00 01/28/19 08:46 Bedside Glucose 131 165 Blood Gas Blood arterial Specimen Source Arterial Blood 01/28/2019 7:01:5 Date Drawn 5 AM Arterial Blood 7.465 H pH (Temp corrected ) Arterial Blood 36.2 pCO2 (Temp correct) Arterial Blood 71.0 L pO2 (Temp corrected ) Arterial Blood 25.5 HCO3 Arterial Blood 1.8 Base Excess Arterial Blood 95.2 Oxygen Saturati on Manuel Test ACCEPTAB Arterial Blood Right Radial Gas Puncture Site Arterial 0.2 Blood Carboxyhe moglobin Arterial Blood 0.5 Methemoglobin Blood Gas A-a 78.7 H O2 Differential Oxyhemoglobin 94.5 Percent Blood Gas 37.0 Temperature Blood Gas NASAL CANNULA Modality FiO2 27.0 Blood Gas TM Notified Whom Blood Gas 01/28/2019 7:30:2 Notified Time 9 AM White Blood 24.1 #H Count Red Blood Count 2.78 L Hemoglobin 8.1 L Hematocrit 25.3 L Mean 91.0 Corpuscular Volume Mean 29.1 Corpuscular Hemoglobin Mean 32.0 Corpuscular Hemoglobin Conc ent Red Cell 18.2 H Distribution Width Platelet Count 250 # Mean Platelet 10.9 H Volume Immature 1.700 H Granulocytes % Neutrophils % 89.1 H Segmented 66 Neutrophils % (Manual) Band 31 H Neutrophils % (Manual) Lymphocytes % 7.3 L Lymphocytes % 2 L (Manual) Monocytes % 1.5 Eosinophils % 0.0 Basophils % 0.4 Myelocytes % 1 H (Manual) Nucleated Red 0.2 H Blood Cells % Immature 0.410 H Granulocytes # Neutrophils # 21.5 H Neutrophils # 17.7 H (Manual) Band 7.4 H Neutrophils # Lymphocytes 0.4 L (Manual) Lymphocytes # 1.8 Monocytes # 0.4 Eosinophils # 0.0 Basophils # 0.1 Myelocytes # 0.2 H Nucleated Red 0.0 Blood Cells # Platelet NORMAL Estimate Polychromasia 1+ Hypochromasia 3+ Poikilocytosis 2+ Anisocytosis 2+ Macrocytosis 2+ Target Cells 2+ Medications Medication Current Medications Lactulose (Enulose) 20 gm DAILY PRN PO CONSTIPATION; Start 01/17/19 at 18:17 Acetaminophen (Tylenol Tab) 650 mg Q4H PRN PO PAIN Last administered on 01/23/19at 22:48; Admin Dose 650 MG; Start 01/17/19 at 18:17 Miscellaneous Information (Pending Santyl Order For Wound Care) This patient ramirez... PRN PRN XX WOUND CARE; Start 01/17/19 at 18:17 Diagnostic Test (Pha) (Accu-Chek) 1 ea AC MEALS AND BEDTIME XX Last administered on 01/28/19 06:55; Admin Dose 1 EA; Start 01/17/19 at 18:17 Diagnostic Test (Pha) (Accu-Chek) 1 ea 02 XX Last administered on 01/22/19 02:00; Admin Dose 1 EA; Start 01/17/19 at 18:17 Albuterol/ Ipratropium (Duoneb) 3 ml Q2H RESP THERAPY PRN HHN SHORTNESS OF BREATH; Start 01/17/19 at 18:17 Bisacodyl (Dulcolax) 10 mg BID PRN PO CONSTIPATION; Start 01/17/19 at 18:17 Folic Acid (Folic Acid) 1 mg DAILY PO Last administered on 01/28/19 09:00; Admin Dose 1 MG; Start 01/17/19 at 18:17 Insulin Aspart (Novolog Insulin Pen) NOVOLOG *MILD* ALGORITHM WITH MEALS BEDTIME SC Last administered on 01/28/19 06:58; Admin Dose 1 UNIT; Start 01/17/19 at 18:17 Latanoprost (Xalatan) 1 drop HS BOTH EYES Last administered on 01/27/19 23:48; Admin Dose 1 DROP; Start 01/17/19 at 18:17 Nitroglycerin (Nitroglycerin (Sl Tab) 0.4 Mg) 0.4 tab Q5M PRN SL CHEST PAIN; Start 01/17/19 at 18:17 Nystatin (Nystatin Powder) 1 applic BID TOP Last administered on 01/28/19 09:00; Admin Dose 1 APPLIC; Start 01/17/19 at 18:17 Pantoprazole (Protonix Tab) 40 mg DAILY@06 PO Last administered on 01/27/19 05:37; Admin Dose 40 MG; Start 01/17/19 at 18:17 IV Flush (NS 3 ml) 3 ml PER PROTOCOL IV ; Start 01/17/19 at 18:17 Miscellaneous Information 1 ea NOTE XX ; Start 01/17/19 at 18:17 Glucose (Glutose) 15 gm Q15M PRN PO DECREASED GLUCOSE; Start 01/17/19 at 18:17 Glucose (Glutose) 22.5 gm Q15M PRN PO DECREASED GLUCOSE; Start 01/17/19 at 18:17 Dextrose (D50w Syringe) 25 ml Q15M PRN IV DECREASED GLUCOSE; Start 01/17/19 at 18:17 Dextrose (D50w Syringe) 50 ml Q15M PRN IV DECREASED GLUCOSE; Start 01/17/19 at 18:17 Glucagon (Glucagen) 1 mg Q15M PRN IM DECREASED GLUCOSE; Start 01/17/19 at 18:17 Glucose (Glutose) 15 gm Q15M PRN BUCCAL DECREASED GLUCOSE; Start 01/17/19 at 18:17 Multivitamins Therapeutic (Theragran) 1 tab DAILY PO Last administered on 01/26/19 07:53; Admin Dose 1 TAB; Start 01/17/19 at 18:17 Zinc Sulfate (Zinc Sulfate) 220 mg DAILY PO Last administered on 01/28/19 09:00; Admin Dose 220 MG; Start 01/17/19 at 18:17 Ascorbic Acid (Vitamin C) 250 mg DAILY PO Last administered on 01/28/19 08:59; Admin Dose 250 MG; Start 01/17/19 at 18:17 Albuterol/ Ipratropium (Duoneb) 3 ml Q6H RESP THERAPY HHN Last administered on 01/28/19 08:47; Admin Dose 3 ML; Start 01/17/19 at 18:17 Multi-Ingredient Ointment (Aquaphor Oint 52.5 Gm) 1 applic BID TOP Last administered on 01/28/19 09:01; Admin Dose 1 APPLIC; Start 01/17/19 at 18:17 Aspirin (Aspirin) 81 mg DAILY PO Last administered on 01/28/19 09:00; Admin Dose 81 MG; Start 01/17/19 at 18:17 Ferrous Sulfate (Ferrous Sulfate (Ec)) 325 mg WITH MEALS PO Last administered on 01/28/19 08:59; Admin Dose 325 MG; Start 01/17/19 at 18:17 Bisacodyl (Dulcolax Supp) 10 mg DAILY PRN [place] CONSTIPATION; Start 01/17/19 at 18:17 Zinc Acetate/ Diphenhydramine (Benadryl 2% Cr) 1 applic Q6H PRN TOP ITCHING Last administered on 01/26/19 07:54; Admin Dose 1 APPLIC; Start 01/19/19 at 16:37 Nystatin/ Triamcinolone Acetonide (Mycolog Cr) 1 applic BID TOP Last administered on 01/28/19 09:00; Admin Dose 1 APPLIC; Start 01/19/19 at 22:41 Epoetin Dae-epbx (RETACRIT(non-esrd)) 20,000 unit Mo@1700 SC Last administered on 01/27/19at 19:28; Admin Dose 20,000 UNIT; Start 01/20/19 at 17:00 IV Flush (NS 10 ml) 10 ml PRN PRN IV IV PROTOCOL; Start 01/20/19 at 14:30 Cyanocobalamin (Vitamin B12 Inj) 1,000 mcg Q7D IM ; Start 02/03/19 at 09:00 Dextrose 1,000 ml @ 40 mls/hr Q24H IV Last administered on 01/27/19at 13:00; Admin Dose 40 MLS/HR; Start 01/26/19 at 13:00 Metoprolol Tartrate (Lopressor) 25 mg BID PO Last administered on 01/26/19at 20:34; Admin Dose 25 MG; Start 01/26/19 at 21:00 Metoprolol Tartrate (Lopressor) 5 mg Q4H PRN IV HR>110 Hold SBP<100; Start 01/26/19 at 14:30 Furosemide (Lasix) 40 mg BID DIURETICS IV Last administered on 01/28/19 05:37; Admin Dose 40 MG; Start 01/27/19 at 18:00 Vancomycin HCl (Vanco Iv Per Pharmacy) VANCOMYCIN PER PHARMACY PER PROTOCOL XX ; Start 01/27/19 at 12:00 Norepinephrine 250 ml @ 1.875 mls/ hr TITRATE IV Last administered on 01/28/19at 05:33; Admin Dose 46.875 MLS/HR; Start 01/27/19 at 12:30 Methylprednisolone Sodium Succinate (Solu-Medrol) 40 mg Q8 IV Last administered on 01/28/19at 05:37; Admin Dose 40 MG; Start 01/27/19 at 14:00 Enoxaparin Sodium (Lovenox) 60 mg DAILY SC ; Start 01/28/19 at 09:00 Lorazepam (Ativan) 1 mg Q2 PRN IV SEIZURES Last administered on 01/27/19at 23:44; Admin Dose 1 MG; Start 01/27/19 at 14:00 Aztreonam 50 ml @ 100 mls/hr Q12 IVPB Last administered on 01/28/19at 09:00; Admin Dose 100 MLS/HR; Start 01/27/19 at 16:30 Metronidazole 100 ml @ 100 mls/hr Q8 IVPB Last administered on 01/28/19at 05:37; Admin Dose 100 MLS/HR; Start 01/27/19 at 15:00 Vancomycin HCl 250 ml @ 125 mls/hr Q36H IVPB ; Start 01/29/19 at 03:00 Lidocaine HCl/ Dextrose 500 ml @ 15 mls/hr Q24H IV ; Start 01/27/19 at 16:30 Atorvastatin Calcium (Lipitor) 40 mg QHS NGT ; Start 01/28/19 at 21:00 Docusate Sodium (Colace Liquid Cup) 100 mg BID NGT ; Start 01/27/19 at 22:00; Status Hold Terazosin HCl (Hytrin) 10 mg HS NGT ; Start 01/28/19 at 21:00 Levetiracetam 100 ml @ 400 mls/hr Q12 IVPB Last administered on 01/28/19at 09:00; Admin Dose 400 MLS/HR; Start 01/28/19 at 09:00 Levothyroxine Sodium (Synthroid) 125 mcg BEFORE BREAKFAST NGT Last administered on 01/28/19at 06:55; Admin Dose 125 MCG; Start 01/28/19 at 07:00 OREN MARSH M.D. January 28, 2019 09:47
--- NOTE | 2019-01-28 10:36 | PN ---
Date/Time of Note Date/Time of Note DATE: 01/28/19 TIME: 10:24 Assessment/Plan VTE Prophylaxis Risk score (from [facility] [place])>0 risk: 11 SCD applied (from [facility] [place]): No SCD contraindicated: low risk/ambulating Pharmacological prophylaxis: NA/contraindicated Pharm contraindication: low risk/ambulating Lines/Catheters IV C[facility]ter Type (from [facility] Central Line Central line still needed: Yes Urinary Cath still in place: Yes Reason Cath still needed: urinary retention Assessment/Plan Hospital Course Hospital Course # AMS likely due to stroke vs seizure #. Septic shock now on pressors likely secondary to pneumonia #. Severe anemia #. Chronic renal failure likely secondary to sepsis, improved, normal crea tinine #. Hypertension.currently hypotensive # Impending respiratory failure # Anasarca # Hyperlipidemia. # Hypothyroidism. # Bilateral groin cellulitis more likely associated with mateus, patches in groin and axilla bilaterally. skin peeling # History of rheumatoid arthritis with joint deformities. # Diabetes type 2. # Hx of CABGx2, carotid stent #. Peripheral vascular disease. #. Chronic a.fib, now on lovenox #. right arm edema # Neoplasm per CT abdomen. 4.3 cm cystic lesion along the pancreas body, enlarged since 10/10/2012 (previously 2.4 cm). 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 # Possible allergic skin reaction ? drug present since admission> improved Plan - iv ativan prn seizure, iv keppra, EEG with diffuse slowing - cw levophed 25, hold bp meds - cw vancomycin/aztreonam/flagyl - pending cx - ? mri - cw D5 at 40 cc/hr, FS check - fu Neuro recs and neuro checks -on ASA, statin - NG -cw nebs/ solumedrol 40 iv q 8 - GI and DVT prophylaxsis -oncology consul dr Lorenzo aware:he said Ca 19-9 is negative indicating unlikely malignant. This may be a pseudocyst or a precancerous pancreatic lesion. It has been growing in size but patient is asymptomatic. EUS with biopsy is recommended and can either be done inpatient or outpatient setting. The patient at this time is unlikely a candidate for a Whipple surgery however. -skin care Result Diagram: 01/28/19 0846 01/28/19 0846 Results 24hrs Laboratory Tests Test 01/27/19 10:38 01/27/19 11:09 01/27/19 12:16 01/27/19 15:00 White Blood 12.8 H Count Red Blood Count 2.69 L Hemoglobin 7.9 L Hematocrit 25.4 L Mean 94.4 Corpuscular Volume Mean 29.4 Corpuscular Hemoglobin Mean 31.1 L Corpuscular Hemoglobin Conc ent Red Cell 18.2 H Distribution Width Platelet Count 175 Mean Platelet 10.9 H Volume Immature 1.100 H Granulocytes % Neutrophils % 82.6 H Segmented 66 Neutrophils % (Manual) Band 25 H Neutrophils % (Manual) Lymphocytes % 11.0 L Lymphocytes % 4 L (Manual) Reactive 1 H Lymphocytes % (Manual) Monocytes % 4.9 Monocytes % 3 (Manual) Eosinophils % 0.2 Basophils % 0.2 Myelocytes % 1 H (Manual) Nucleated Red 0.2 H Blood Cells % Immature 0.140 H Granulocytes # Neutrophils # 10.6 H Neutrophils # 8.9 H (Manual) Band 3.2 H Neutrophils # Lymphocytes 0.5 L (Manual) Lymphocytes # 1.4 Reactive 0.1 H Lymphocytes # Monocytes # 0.6 Monocytes # 0.3 (Manual) Eosinophils # 0.0 Basophils # 0.0 Myelocytes # 0.1 H Nucleated Red 0.0 Blood Cells # Platelet NORMAL Estimate Giant Platelets 1 H Polychromasia 1+ Hypochromasia 1+ Poikilocytosis 2+ Anisocytosis 2+ Macrocytosis 2+ Target Cells 1+ Sodium Level 140 Potassium Level 3.6 Chloride Level 106 Carbon Dioxide 24 Level Anion Gap 10 Blood Urea 37 H Nitrogen Creatinine 1.30 H Est Glomerular Filtrat Rate mL/min Glucose Level 112 Calcium Level 8.0 L Lab Scanned REFERENCE LAB Report Bedside Glucose 136 Blood Gas Blood arterial Specimen Source Arterial Blood 01/27/2019 2:30:3 Date Drawn 8 PM Arterial Blood 7.354 pH (Temp corrected ) Arterial Blood 47.2 H pCO2 (Temp correct) Arterial Blood 103.2 H pO2 (Temp corrected ) Arterial Blood 25.7 HCO3 Arterial Blood 0 Base Excess Arterial Blood 97.4 Oxygen Saturati on Manuel Test ACCEPTAB Arterial Blood Left Radial Gas Puncture Site Arterial 0.1 Blood Carboxyhe moglobin Arterial Blood 0.5 Methemoglobin Blood Gas A-a 55.2 H O2 Differential Oxyhemoglobin 96.8 Percent Blood Gas 37.0 Temperature Blood Gas 18.0 Respiration Rate Blood Gas 18 Actual Respiration Rat e Blood Gas MASK - BIPAP Modality FiO2 30.0 Blood Gas Y CHARLA RN Critical Value Read Back Blood Gas T LIZA [employer] Notified Whom Blood Gas 01/27/2019 2:47:3 Notified Time 4 PM Test 01/27/19 18:04 01/27/19 19:27 01/27/19 20:56 01/28/19 06:54 Bedside Glucose 153 157 131 165 Test 01/28/19 07:00 01/28/19 08:46 Blood Gas Blood arterial Specimen Source Arterial Blood 01/28/2019 7:01:5 Date Drawn 5 AM Arterial Blood 7.465 H pH (Temp corrected ) Arterial Blood 36.2 pCO2 (Temp correct) Arterial Blood 71.0 L pO2 (Temp corrected ) Arterial Blood 25.5 HCO3 Arterial Blood 1.8 Base Excess Arterial Blood 95.2 Oxygen Saturati on Manuel Test ACCEPTAB Arterial Blood Right Radial Gas Puncture Site Arterial 0.2 Blood Carboxyhe moglobin Arterial Blood 0.5 Methemoglobin Blood Gas A-a 78.7 H O2 Differential Oxyhemoglobin 94.5 Percent Blood Gas 37.0 Temperature Blood Gas NASAL CANNULA Modality FiO2 27.0 Blood Gas TM Notified Whom Blood Gas 01/28/2019 7:30:2 Notified Time 9 AM White Blood 24.1 #H Count Red Blood Count 2.78 L Hemoglobin 8.1 L Hematocrit 25.3 L Mean 91.0 Corpuscular Volume Mean 29.1 Corpuscular Hemoglobin Mean 32.0 Corpuscular Hemoglobin Conc ent Red Cell 18.2 H Distribution Width Platelet Count 250 # Mean Platelet 10.9 H Volume Immature 1.700 H Granulocytes % Neutrophils % 89.1 H Segmented 66 Neutrophils % (Manual) Band 31 H Neutrophils % (Manual) Lymphocytes % 7.3 L Lymphocytes % 2 L (Manual) Monocytes % 1.5 Eosinophils % 0.0 Basophils % 0.4 Myelocytes % 1 H (Manual) Nucleated Red 0.2 H Blood Cells % Immature 0.410 H Granulocytes # Neutrophils # 21.5 H Neutrophils # 17.7 H (Manual) Band 7.4 H Neutrophils # Lymphocytes 0.4 L (Manual) Lymphocytes # 1.8 Monocytes # 0.4 Eosinophils # 0.0 Basophils # 0.1 Myelocytes # 0.2 H Nucleated Red 0.0 Blood Cells # Platelet NORMAL Estimate Polychromasia 1+ Hypochromasia 3+ Poikilocytosis 2+ Anisocytosis 2+ Macrocytosis 2+ Target Cells 2+ Sodium Level 142 Potassium Level 4.5 Chloride Level 107 Carbon Dioxide 26 Level Anion Gap 9 Blood Urea 38 H Nitrogen Creatinine 1.42 H Est Glomerular Filtrat Rate mL/min Glucose Level 148 Calcium Level 8.3 L Magnesium Level 1.9 Subjective 24 Hr Interval Summary Free Text/Dictation Patient had 3 seizure episodes Currently on levo fed of 25 Exam/Review of Systems Exam Vitals Vital Signs Date Temp Pulse Resp B/P (MAP) Pulse Ox O2 O2 Flow FiO2 Time Delivery Rate 01/28/19 98 22 100 Nasal 2.0 08:48 Cannula 01/28/19 102/56 07:15 (71) 01/28/19 97.8 04:00 01/27/19 30 14:25 Intake and Output 01/27/19 01/27/19 01/28/19 1414:59 22:59 06:59 IntakeIntake Total 80 ml 914.350 ml 937.500 ml OutputOutput Total 5 ml 110 ml 360 ml BalanceBalance 75 ml 804.350 ml 577.500 ml Exam unresponsive, no spontaneous purposeful movements no response to verbal or tactile stimulation . spontansously breathing rt pupil sluggish, left pupil sluggish Constitutional: frail Respiratory: diminished breath sounds Cardiovascular: irregular rhythm Gastrointestinal: soft Genitourinary - Male: other (rinaldi) Skin: diffuse skin rash hyperpigemented, sloughing of skin Results Results 24hrs Laboratory Tests Test 01/27/19 10:38 01/27/19 11:09 01/27/19 12:16 01/27/19 15:00 White Blood 12.8 H Count Red Blood Count 2.69 L Hemoglobin 7.9 L Hematocrit 25.4 L Mean 94.4 Corpuscular Volume Mean 29.4 Corpuscular Hemoglobin Mean 31.1 L Corpuscular Hemoglobin Conc ent Red Cell 18.2 H Distribution Width Platelet Count 175 Mean Platelet 10.9 H Volume Immature 1.100 H Granulocytes % Neutrophils % 82.6 H Segmented 66 Neutrophils % (Manual) Band 25 H Neutrophils % (Manual) Lymphocytes % 11.0 L Lymphocytes % 4 L (Manual) Reactive 1 H Lymphocytes % (Manual) Monocytes % 4.9 Monocytes % 3 (Manual) Eosinophils % 0.2 Basophils % 0.2 Myelocytes % 1 H (Manual) Nucleated Red 0.2 H Blood Cells % Immature 0.140 H Granulocytes # Neutrophils # 10.6 H Neutrophils # 8.9 H (Manual) Band 3.2 H Neutrophils # Lymphocytes 0.5 L (Manual) Lymphocytes # 1.4 Reactive 0.1 H Lymphocytes # Monocytes # 0.6 Monocytes # 0.3 (Manual) Eosinophils # 0.0 Basophils # 0.0 Myelocytes # 0.1 H Nucleated Red 0.0 Blood Cells # Platelet NORMAL Estimate Giant Platelets 1 H Polychromasia 1+ Hypochromasia 1+ Poikilocytosis 2+ Anisocytosis 2+ Macrocytosis 2+ Target Cells 1+ Sodium Level 140 Potassium Level 3.6 Chloride Level 106 Carbon Dioxide 24 Level Anion Gap 10 Blood Urea 37 H Nitrogen Creatinine 1.30 H Est Glomerular Filtrat Rate mL/min Glucose Level 112 Calcium Level 8.0 L Lab Scanned REFERENCE LAB Report Bedside Glucose 136 Blood Gas Blood arterial Specimen Source Arterial Blood 01/27/2019 2:30:3 Date Drawn 8 PM Arterial Blood 7.354 pH (Temp corrected ) Arterial Blood 47.2 H pCO2 (Temp correct) Arterial Blood 103.2 H pO2 (Temp corrected ) Arterial Blood 25.7 HCO3 Arterial Blood 0 Base Excess Arterial Blood 97.4 Oxygen Saturati on Manuel Test ACCEPTAB Arterial Blood Left Radial Gas Puncture Site Arterial 0.1 Blood Carboxyhe moglobin Arterial Blood 0.5 Methemoglobin Blood Gas A-a 55.2 H O2 Differential Oxyhemoglobin 96.8 Percent Blood Gas 37.0 Temperature Blood Gas 18.0 Respiration Rate Blood Gas 18 Actual Respiration Rat e Blood Gas MASK - BIPAP Modality FiO2 30.0 Blood Gas Y CHARLA WONG Critical Value Read Back Blood Gas T LIZA [facility] Notified Whom Blood Gas 01/27/2019 2:47:3 Notified Time 4 PM Test 01/27/19 18:04 01/27/19 19:27 01/27/19 20:56 01/28/19 06:54 Bedside Glucose 153 157 131 165 Test 01/28/19 07:00 01/28/19 08:46 Blood Gas Blood arterial Specimen Source Arterial Blood 01/28/2019 7:01:5 Date Drawn 5 AM Arterial Blood 7.465 H pH (Temp corrected ) Arterial Blood 36.2 pCO2 (Temp correct) Arterial Blood 71.0 L pO2 (Temp corrected ) Arterial Blood 25.5 HCO3 Arterial Blood 1.8 Base Excess Arterial Blood 95.2 Oxygen Saturati on Manuel Test ACCEPTAB Arterial Blood Right Radial Gas Puncture Site Arterial 0.2 Blood Carboxyhe moglobin Arterial Blood 0.5 Methemoglobin Blood Gas A-a 78.7 H O2 Differential Oxyhemoglobin 94.5 Percent Blood Gas 37.0 Temperature Blood Gas NASAL CANNULA Modality FiO2 27.0 Blood Gas TM Notified Whom Blood Gas 01/28/2019 7:30:2 Notified Time 9 AM White Blood 24.1 #H Count Red Blood Count 2.78 L Hemoglobin 8.1 L Hematocrit 25.3 L Mean 91.0 Corpuscular Volume Mean 29.1 Corpuscular Hemoglobin Mean 32.0 Corpuscular Hemoglobin Conc ent Red Cell 18.2 H Distribution Width Platelet Count 250 # Mean Platelet 10.9 H Volume Immature 1.700 H Granulocytes % Neutrophils % 89.1 H Segmented 66 Neutrophils % (Manual) Band 31 H Neutrophils % (Manual) Lymphocytes % 7.3 L Lymphocytes % 2 L (Manual) Monocytes % 1.5 Eosinophils % 0.0 Basophils % 0.4 Myelocytes % 1 H (Manual) Nucleated Red 0.2 H Blood Cells % Immature 0.410 H Granulocytes # Neutrophils # 21.5 H Neutrophils # 17.7 H (Manual) Band 7.4 H Neutrophils # Lymphocytes 0.4 L (Manual) Lymphocytes # 1.8 Monocytes # 0.4 Eosinophils # 0.0 Basophils # 0.1 Myelocytes # 0.2 H Nucleated Red 0.0 Blood Cells # Platelet NORMAL Estimate Polychromasia 1+ Hypochromasia 3+ Poikilocytosis 2+ Anisocytosis 2+ Macrocytosis 2+ Target Cells 2+ Sodium Level 142 Potassium Level 4.5 Chloride Level 107 Carbon Dioxide 26 Level Anion Gap 9 Blood Urea 38 H Nitrogen Creatinine 1.42 H Est Glomerular Filtrat Rate mL/min Glucose Level 148 Calcium Level 8.3 L Magnesium Level 1.9 Medications Medication Current Medications Lactulose (Enulose) 20 gm DAILY PRN PO CONSTIPATION; Start 01/17/19 at 18:17 Acetaminophen (Tylenol Tab) 650 mg Q4H PRN PO PAIN Last administered on 01/23/19a t 22:48; Admin Dose 650 MG; Start 01/17/19 at 18:17 Miscellaneous Information (Pending Santyl Order For Wound Care) This patient ramirez... PRN PRN XX WOUND CARE; Start 01/17/19 at 18:17 Diagnostic Test (Pha) (Accu-Chek) 1 ea AC MEALS AND BEDTIME XX Last administered on 01/28/19 06:55; Admin Dose 1 EA; Start 01/17/19 at 18:17 Diagnostic Test (Pha) (Accu-Chek) 1 ea 02 XX Last administered on 01/22/19 02:00; Admin Dose 1 EA; Start 01/17/19 at 18:17 Albuterol/ Ipratropium (Duoneb) 3 ml Q2H RESP THERAPY PRN HHN SHORTNESS OF BREATH; Start 01/17/19 at 18:17 Bisacodyl (Dulcolax) 10 mg BID PRN PO CONSTIPATION; Start 01/17/19 at 18:17 Folic Acid (Folic Acid) 1 mg DAILY PO Last administered on 01/28/19 09:00; Admin Dose 1 MG; Start 01/17/19 at 18:17 Insulin Aspart (Novolog Insulin Pen) NOVOLOG *MILD* ALGORITHM WITH MEALS BEDTIME SC Last administered on 01/28/19 06:58; Admin Dose 1 UNIT; Start 01/17/19 at 18:17 Latanoprost (Xalatan) 1 drop HS BOTH EYES Last administered on 01/27/19 23:48; Admin Dose 1 DROP; Start 01/17/19 at 18:17 Nitroglycerin (Nitroglycerin (Sl Tab) 0.4 Mg) 0.4 tab Q5M PRN SL CHEST PAIN; Start 01/17/19 at 18:17 Nystatin (Nystatin Powder) 1 applic BID TOP Last administered on 01/28/19 09:00; Admin Dose 1 APPLIC; Start 01/17/19 at 18:17 Pantoprazole (Protonix Tab) 40 mg DAILY@06 PO Last administered on 01/27/19 05:37; Admin Dose 40 MG; Start 01/17/19 at 18:17 IV Flush (NS 3 ml) 3 ml PER PROTOCOL IV ; Start 01/17/19 at 18:17 Miscellaneous Information 1 ea NOTE XX ; Start 01/17/19 at 18:17 Glucose (Glutose) 15 gm Q15M PRN PO DECREASED GLUCOSE; Start 01/17/19 at 18:17 Glucose (Glutose) 22.5 gm Q15M PRN PO DECREASED GLUCOSE; Start 01/17/19 at 18:17 Dextrose (D50w Syringe) 25 ml Q15M PRN IV DECREASED GLUCOSE; Start 01/17/19 at 18:17 Dextrose (D50w Syringe) 50 ml Q15M PRN IV DECREASED GLUCOSE; Start 01/17/19 at 18:17 Glucagon (Glucagen) 1 mg Q15M PRN IM DECREASED GLUCOSE; Start 01/17/19 at 18:17 Glucose (Glutose) 15 gm Q15M PRN BUCCAL DECREASED GLUCOSE; Start 01/17/19 at 18:17 Multivitamins Therapeutic (Theragran) 1 tab DAILY PO Last administered on 01/26/19 07:53; Admin Dose 1 TAB; Start 01/17/19 at 18:17 Zinc Sulfate (Zinc Sulfate) 220 mg DAILY PO Last administered on 01/28/19 09:00; Admin Dose 220 MG; Start 01/17/19 at 18:17 Ascorbic Acid (Vitamin C) 250 mg DAILY PO Last administered on 01/28/19 08:59; Admin Dose 250 MG; Start 01/17/19 at 18:17 Albuterol/ Ipratropium (Duoneb) 3 ml Q6H RESP THERAPY HHN Last administered on 01/28/19 08:47; Admin Dose 3 ML; Start 01/17/19 at 18:17 Multi-Ingredient Ointment (Aquaphor Oint 52.5 Gm) 1 applic BID TOP Last administered on 01/28/19 09:01; Admin Dose 1 APPLIC; Start 01/17/19 at 18:17 Aspirin (Aspirin) 81 mg DAILY PO Last administered on 01/28/19 09:00; Admin Dose 81 MG; Start 01/17/19 at 18:17 Ferrous Sulfate (Ferrous Sulfate (Ec)) 325 mg WITH MEALS PO Last administered on 01/28/19 08:59; Admin Dose 325 MG; Start 01/17/19 at 18:17 Bisacodyl (Dulcolax Supp) 10 mg DAILY PRN [place] CONSTIPATION; Start 01/17/19 at 18:17 Zinc Acetate/ Diphenhydramine (Benadryl 2% Cr) 1 applic Q6H PRN TOP ITCHING Last administered on 01/26/19 07:54; Admin Dose 1 APPLIC; Start 01/19/19 at 16:37 Nystatin/ Triamcinolone Acetonide (Mycolog Cr) 1 applic BID TOP Last administered on 01/28/19 09:00; Admin Dose 1 APPLIC; Start 01/19/19 at 22:41 Epoetin Dae-epbx (RETACRIT(non-esrd)) 20,000 unit Mo@1700 SC Last administered on 01/27/19 19:28; Admin Dose 20,000 UNIT; Start 01/20/19 at 17:00 IV Flush (NS 10 ml) 10 ml PRN PRN IV IV PROTOCOL; Start 01/20/19 at 14:30 Cyanocobalamin (Vitamin B12 Inj) 1,000 mcg Q7D IM ; Start 02/03/19 at 09:00 Dextrose 1,000 ml @ 40 mls/hr Q24H IV Last administered on 01/27/19 13:00; Admin Dose 40 MLS/HR; Start 01/26/19 at 13:00 Metoprolol Tartrate (Lopressor) 5 mg Q4H PRN IV HR>110 Hold SBP<100; Start 01/26/19 at 14:30 Furosemide (Lasix) 40 mg BID DIURETICS IV Last administered on 01/28/19 05:37; Admin Dose 40 MG; Start 01/27/19 at 18:00 Vancomycin HCl (Vanco Iv Per Pharmacy) VANCOMYCIN PER PHARMACY PER PROTOCOL XX ; Start 01/27/19 at 12:00 Norepinephrine 250 ml @ 1.875 mls/ hr TITRATE IV Last administered on 01/28/19 05:33; Admin Dose 46.875 MLS/HR; Start 01/27/19 at 12:30 Methylprednisolone Sodium Succinate (Solu-Medrol) 40 mg Q8 IV Last administered on 01/28/19 05:37; Admin Dose 40 MG; Start 01/27/19 at 14:00 Enoxaparin Sodium (Lovenox) 60 mg DAILY SC ; Start 01/28/19 at 09:00 Lorazepam (Ativan) 1 mg Q2 PRN IV SEIZURES Last administered on 01/27/19 23:44; Admin Dose 1 MG; Start 01/27/19 at 14:00 Aztreonam 50 ml @ 100 mls/hr Q12 IVPB Last administered on 5/7/19at 09:00; Admin Dose 100 MLS/HR; Start 01/27/19 at 16:30 Metronidazole 100 ml @ 100 mls/hr Q8 IVPB Last administered on 01/28/19at 05:37; Admin Dose 100 MLS/HR; Start 01/27/19 at 15:00 Vancomycin HCl 250 ml @ 125 mls/hr Q36H IVPB ; Start 01/29/19 at 03:00 Lidocaine HCl/ Dextrose 500 ml @ 15 mls/hr Q24H IV ; Start 01/27/19 at 16:30 Atorvastatin Calcium (Lipitor) 40 mg QHS NGT ; Start 01/28/19 at 21:00 Docusate Sodium (Colace Liquid Cup) 100 mg BID NGT ; Start 01/27/19 at 22:00; Status Hold Terazosin HCl (Hytrin) 10 mg HS NGT ; Start 01/28/19 at 21:00 Levetiracetam 100 ml @ 400 mls/hr Q12 IVPB Last administered on 01/28/19at 09:00; Admin Dose 400 MLS/HR; Start 01/28/19 at 09:00 Levothyroxine Sodium (Synthroid) 125 mcg BEFORE BREAKFAST NGT Last administered on 01/28/19at 06:55; Admin Dose 125 MCG; Start 01/28/19 at 07:00 IVAN AKHTAR MD January 28, 2019 10:35
[2019-01-28] MEDS: MULTIVITAMINS 30 ML CUP GTB SCH (12:08)
[2019-01-28] MEDS: FERROUS SULFATE 60 MG/ML 5ML CUP GTB SCH ×2 (12:08→17:27)
[2019-01-28] MEDS: LANSOPRAZOLE 30 MG CAP NGT SCH (12:08)
--- NOTE | 2019-01-28 13:24 | CONS ---
Assessment/Plan Assessment/Plan Hospital Course 88 yo M with multiple comorbidities who initially presented for evaluation of hiccups. He was noted to become acutely altered... for which neurology is consulted. He was noted to develop ams on 01/21 around 7pm and noted on 01/22 to be unresponsive... prompting a code stroke activation. The clinical picture suggests an acute toxic-metabolic encephalopathy.. 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 CTH is without acute ischemia, though notable for chronic infarcts. 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 On 01/27/19, the pt was noted to have recurrent spells concerning for seizure, in the context of hypotension and hypothermia --> Tx to ICU EEG is without ongoing epileptiform activity P: Cont Keppra 500 BID for now Ativan IV PRN prolonged seizure (> 5 min) Await MRI brain for further characterization Agree w/ ASA/Lipitor daily pending the above Limit sedating medications where possible Other medical management per primary Will follow clinically Consultation Date/Type/Reason Admit Date/Time Jan 17, 2019 at 15:58 Type of Consult Neurology Reason for Consultation ams; eval for stroke Requesting Provider: IVAN AKHTAR MD Date/Time of Note DATE: 01/28/19 TIME: 13:23 24 HR Interval Summary Free Text/Dictation Continues critical care. Reportedly had a couple seizure events overnight. On levophed gtt. Subjective hx not possible: pt non-verbal, pt critical Exam Vital Signs Vitals Vital Signs Date Temp Pulse Resp B/P (MAP) Pulse Ox O2 O2 Flow FiO2 Time Delivery Rate 01/28/19 118 12:00 01/28/19 22 106/63 99 Nasal 11:00 (77) Cannula 01/28/19 2.0 08:48 01/28/19 98.8 08:00 01/27/19 30 14:25 Intake and Output 01/27/19 01/27/19 01/28/19 1515:00 23:00 07:00 IntakeIntake Total 120 ml 953.725 ml 944.995 ml OutputOutput Total 5 ml 140 ml 330 ml BalanceBalance 115 ml 813.725 ml 614.995 ml Exam PE: Gen Appearance: No Apparent Distress HEENT: Normocephalic; on nasal cannula Cardiovascular: Regular rate Abdomen: Soft Extremities: Dry, skin peeling NE: The patient was obtunded and nonverbal. Opens eyes to noxious stimuli. Cranial nerve examination was limited by mental status. Pupils were equal and reactive to light. There was no afferent pupillary defect. Funduscopic examination was limited. Face was grossly symmetric. Tone was normal. Muscle bulk was normal. I did not see fasciculations. The patient localized his upper extremities to noxious stimuli; withdrew his lowers. Coordination and gait testing was limited by mental status. Arm and leg reflexes were within normal limits and symmetric. Gray's sign was absent. Plantar responses were flexor. NEGRA CORONA NP January 28, 2019 13:24 ANGE RAMIREZ January 28, 2019 17:25
--- NOTE | 2019-01-28 13:56 | CONS ---
Assessment/Plan Assessment/Plan Hospital Course (Demo Recall) Patient had been having seizures overnight he is lethargic started on Levophed drip in no distress Chest x-ray this morning revealed increased bilateral interstitial and alveolar infiltrates concerning for edema, multifocal pneumonia or pneumonitis Antimicrobials: Vancomycin, aztreonam, Flagyl Indwelling: Left subclavian triple-lumen catheter, Wade catheter, NG tube Allergy: Penicillin, sulfa Physical examination: Obese well-developed chronically ill-appearing - [place] man who is lethargic, in no distress. Head atraumatic normocephalic sclera nonicteric. Neck is supple chest rise symmetrical breath sounds diminished bases. Heart: S1-S2. Abdomen obese soft bowel sounds present extremities without cyanosis, bilateral edema Assessment: 1. Sepsis with shock 2. Acute encephalopathy 3. Seizures 4. Possible aspiration pneumonia 5. Coronary artery disease/history of CABG 6. Advanced rheumatoid arthritis 5. Chronic atrial fibrillation 6. Diabetes 7. BPH 9. Acute on chronic anemia===> s/p EGD/colonoscopy 01/09/19 10. Status post right epididymitis 11. Pancreatic lesion per CT, unlikely neoplasm per oncology notes 12. History of CVA Plan: Patient is doing poorly, were going to add antifungal coverage, continue him on current antibiotics, follow recommendations of specialists. DNR status noted Consultation Date/Type/Reason Admit Date/Time Jan 17, 2019 at 15:58 Initial Consult Date 01/18/19 Type of Consult id Requesting Provider: IVAN AKHTAR MD Date/Time of Note DATE: 01/28/19 TIME: 13:54 Exam/Review of Systems Exam Vitals Vital Signs Date Temp Pulse Resp B/P (MAP) Pulse Ox O2 O2 Flow FiO2 Time Delivery Rate 01/28/19 118 12:00 01/28/19 22 106/63 99 Nasal 11:00 (77) Cannula 01/28/19 2.0 08:48 01/28/19 98.8 08:00 01/27/19 30 14:25 Intake and Output 01/27/19 01/27/19 01/28/19 1515:00 23:00 07:00 IntakeIntake Total 120 ml 953.725 ml 944.995 ml OutputOutput Total 5 ml 140 ml 330 ml BalanceBalance 115 ml 813.725 ml 614.995 ml Results Result Diagram: 01/28/19 0846 01/28/19 0846 Results 24hrs Laboratory Tests Test 01/27/19 15:00 01/27/19 18:04 01/27/19 19:27 01/27/19 20:56 Blood Gas Blood arterial Specimen Source Arterial Blood 01/27/2019 2:30:38 Date Drawn PM Arterial Blood 7.354 pH (Temp corrected) Arterial Blood 47.2 H pCO2 (Temp correct) Arterial Blood 103.2 H pO2 (Temp corrected) Arterial Blood 25.7 HCO3 Arterial Blood 0 Base Excess Arterial Blood 97.4 Oxygen Saturatio n Manuel Test ACCEPTAB Arterial Blood Left Radial Gas Puncture Site Arterial 0.1 Blood Carboxyhem oglobin Arterial Blood 0.5 Methemoglobin Blood Gas A-a O2 55.2 H Differential Oxyhemoglobin 96.8 Percent Blood Gas 37.0 Temperature Blood Gas 18.0 Respiration Rate Blood Gas Actual 18 Respiration Rate Blood Gas MASK - BIPAP Modality FiO2 30.0 Blood Gas Y CHARLA RN Critical Value Read Back Blood Gas Lily [facility] Notified Whom Blood Gas 01/27/2019 2:47:34 Notified Time PM Bedside Glucose 153 157 131 Test 01/28/19 06:54 01/28/19 07:00 01/28/19 08:46 01/28/19 13:19 Bedside Glucose 165 181 Blood Gas Blood arterial Specimen Source Arterial Blood 01/28/2019 7:01:55 Date Drawn AM Arterial Blood 7.465 H pH (Temp corrected) Arterial Blood 36.2 pCO2 (Temp correct) Arterial Blood 71.0 L pO2 (Temp corrected) Arterial Blood 25.5 HCO3 Arterial Blood 1.8 Base Excess Arterial Blood 95.2 Oxygen Saturatio n Manuel Test ACCEPTAB Arterial Blood Right Radial Gas Puncture Site Arterial 0.2 Blood Carboxyhem oglobin Arterial Blood 0.5 Methemoglobin Blood Gas A-a O2 78.7 H Differential Oxyhemoglobin 94.5 Percent Blood Gas 37.0 Temperature Blood Gas NASAL CANNULA Modality FiO2 27.0 Blood Gas TM Notified Whom Blood Gas 01/28/2019 7:30:29 Notified Time AM White Blood 24.1 #H Count Red Blood Count 2.78 L Hemoglobin 8.1 L Hematocrit 25.3 L Mean Corpuscular 91.0 Volume Mean Corpuscular 29.1 Hemoglobin Mean Corpuscular 32.0 Hemoglobin June nt Red Cell 18.2 H Distribution Width Platelet Count 250 # Mean Platelet 10.9 H Volume Immature 1.700 H Granulocytes % Neutrophils % 89.1 H Segmented 66 Neutrophils % (Manual) Band Neutrophils 31 H % (Manual) Lymphocytes % 7.3 L Lymphocytes % 2 L (Manual) Monocytes % 1.5 Eosinophils % 0.0 Basophils % 0.4 Myelocytes % 1 H (Manual) Nucleated Red 0.2 H Blood Cells % Immature 0.410 H Granulocytes # Neutrophils # 21.5 H Neutrophils # 17.7 H (Manual) Band Neutrophils 7.4 H # Lymphocytes 0.4 L (Manual) Lymphocytes # 1.8 Monocytes # 0.4 Eosinophils # 0.0 Basophils # 0.1 Myelocytes # 0.2 H Nucleated Red 0.0 Blood Cells # Platelet NORMAL Estimate Polychromasia 1+ Hypochromasia 3+ Poikilocytosis 2+ Anisocytosis 2+ Macrocytosis 2+ Target Cells 2+ Sodium Level 142 Potassium Level 4.5 Chloride Level 107 Carbon Dioxide 26 Level Anion Gap 9 Blood Urea 38 H Nitrogen Creatinine 1.42 H Est Glomerular Filtrat Rate mL/min Glucose Level 148 Calcium Level 8.3 L Magnesium Level 1.9 Medications Medication Current Medications Lactulose (Enulose) 20 gm DAILY PRN PO CONSTIPATION; Start 01/17/19 at 18:17 Acetaminophen (Tylenol Tab) 650 mg Q4H PRN PO PAIN Last administered on 01/23/19at 22:48; Admin Dose 650 MG; Start 01/17/19 at 18:17 Miscellaneous Information (Pending [facility] Order For Wound Care) This patient ramirez... PRN PRN XX WOUND CARE; Start 01/17/19 at 18:17 Diagnostic Test (Pha) (Accu-Chek) 1 ea 02 XX Last administered on 01/22/19at 02:00; Admin Dose 1 EA; Start 01/17/19 at 18:17 Albuterol/ Ipratropium (Duoneb) 3 ml Q2H RESP THERAPY PRN HHN SHORTNESS OF BREATH; Start 01/17/19 at 18:17 Bisacodyl (Dulcolax) 10 mg BID PRN PO CONSTIPATION; Start 01/17/19 at 18:17; Status Hold Folic Acid (Folic Acid) 1 mg DAILY PO Last administered on 01/28/19at 09:00; Admin Dose 1 MG; Start 01/17/19 at 18:17 Latanoprost (Xalatan) 1 drop HS BOTH EYES Last administered on 01/27/19 23:48; Admin Dose 1 DROP; Start 01/17/19 at 18:17 Nitroglycerin (Nitroglycerin (Sl Tab) 0.4 Mg) 0.4 tab Q5M PRN SL CHEST PAIN; Start 01/17/19 at 18:17 Nystatin (Nystatin Powder) 1 applic BID TOP Last administered on 01/28/19 09:00; Admin Dose 1 APPLIC; Start 01/17/19 at 18:17 IV Flush (NS 3 ml) 3 ml PER PROTOCOL IV ; Start 01/17/19 at 18:17 Miscellaneous Information 1 ea NOTE XX ; Start 01/17/19 at 18:17 Glucose (Glutose) 15 gm Q15M PRN PO DECREASED GLUCOSE; Start 01/17/19 at 18:17 Glucose (Glutose) 22.5 gm Q15M PRN PO DECREASED GLUCOSE; Start 01/17/19 at 18:17 Dextrose (D50w Syringe) 25 ml Q15M PRN IV DECREASED GLUCOSE; Start 01/17/19 at 18:17 Dextrose (D50w Syringe) 50 ml Q15M PRN IV DECREASED GLUCOSE; Start 01/17/19 at 18:17 Glucagon (Glucagen) 1 mg Q15M PRN IM DECREASED GLUCOSE; Start 01/17/19 at 18:17 Glucose (Glutose) 15 gm Q15M PRN BUCCAL DECREASED GLUCOSE; Start 01/17/19 at 18:17 Zinc Sulfate (Zinc Sulfate) 220 mg DAILY PO Last administered on 01/28/19 09:00; Admin Dose 220 MG; Start 01/17/19 at 18:17 Ascorbic Acid (Vitamin C) 250 mg DAILY PO Last administered on 01/28/19 08:59; Admin Dose 250 MG; Start 01/17/19 at 18:17 Multi-Ingredient Ointment (Aquaphor Oint 52.5 Gm) 1 applic BID TOP Last administered on 01/28/19 09:01; Admin Dose 1 APPLIC; Start 01/17/19 at 18:17 Aspirin (Aspirin) 81 mg DAILY PO Last administered on 01/28/19 09:00; Admin Dose 81 MG; Start 01/17/19 at 18:17 Bisacodyl (Dulcolax Supp) 10 mg DAILY PRN MD CONSTIPATION; Start 01/17/19 at 18:17 Zinc Acetate/ Diphenhydramine (Benadryl 2% Cr) 1 applic Q6H PRN TOP ITCHING Last administered on 01/26/19at 07:54; Admin Dose 1 APPLIC; Start 01/19/19 at 16:37 Nystatin/ Triamcinolone Acetonide (Mycolog Cr) 1 applic BID TOP Last administered on 01/28/19at 09:00; Admin Dose 1 APPLIC; Start 01/19/19 at 22:41 Epoetin Dae-epbx (RETACRIT(non-esrd)) 20,000 unit Mo@1700 SC Last administered on 01/27/19 19:28; Admin Dose 20,000 UNIT; Start 01/20/19 at 17:00 IV Flush (NS 10 ml) 10 ml PRN PRN IV IV PROTOCOL; Start 01/20/19 at 14:30 Cyanocobalamin (Vitamin B12 Inj) 1,000 mcg Q7D IM ; Start 02/03/19 at 09:00 Dextrose 1,000 ml @ 40 mls/hr Q24H IV Last administered on 01/27/19 13:00; Admin Dose 40 MLS/HR; Start 01/26/19 at 13:00 Metoprolol Tartrate (Lopressor) 5 mg Q4H PRN IV HR>110 Hold SBP<100; Start 01/26/19 at 14:30 Furosemide (Lasix) 40 mg BID DIURETICS IV Last administered on 01/28/19 05:37; Admin Dose 40 MG; Start 01/27/19 at 18:00 Vancomycin HCl (Vanco Iv Per Pharmacy) VANCOMYCIN PER PHARMACY PER PROTOCOL XX ; Start 01/27/19 at 12:00 Norepinephrine 250 ml @ 1.875 mls/ hr TITRATE IV Last administered on 01/28/19 11:28; Admin Dose 46.875 MLS/HR; Start 01/27/19 at 12:30 Methylprednisolone Sodium Succinate (Solu-Medrol) 40 mg Q8 IV Last administered on 01/28/19 05:37; Admin Dose 40 MG; Start 01/27/19 at 14:00 Enoxaparin Sodium (Lovenox) 60 mg DAILY SC Last administered on 5/7/19at 09:00; Admin Dose 60 MG; Start 01/28/19 at 09:00 Lorazepam (Ativan) 1 mg Q2 PRN IV SEIZURES Last administered on 01/27/19 23:44; Admin Dose 1 MG; Start 01/27/19 at 14:00 Aztreonam 50 ml @ 100 mls/hr Q12 IVPB Last administered on 01/28/19 09:00; Admin Dose 100 MLS/HR; Start 01/27/19 at 16:30 Metronidazole 100 ml @ 100 mls/hr Q8 IVPB Last administered on 01/28/19 05:37; Admin Dose 100 MLS/HR; Start 01/27/19 at 15:00 Vancomycin HCl 250 ml @ 125 mls/hr Q36H IVPB ; Start 01/29/19 at 03:00 Lidocaine HCl/ Dextrose 500 ml @ 15 mls/hr Q24H IV ; Start 01/27/19 at 16:30 Atorvastatin Calcium (Lipitor) 40 mg QHS NGT ; Start 01/28/19 at 21:00 Docusate Sodium (Colace Liquid Cup) 100 mg BID NGT ; Start 01/27/19 at 22:00; Status Hold Terazosin HCl (Hytrin) 10 mg HS NGT ; Start 01/28/19 at 21:00 Levetiracetam 100 ml @ 400 mls/hr Q12 IVPB Last administered on 01/28/19 09:00; Admin Dose 400 MLS/HR; Start 01/28/19 at 09:00 Levothyroxine Sodium (Synthroid) 125 mcg BEFORE BREAKFAST NGT Last administered on 01/28/19 06:55; Admin Dose 125 MCG; Start 01/28/19 at 07:00 Albuterol/ Ipratropium (Duoneb) 3 ml Q4H RESP THERAPY HHN Last administered on 01/28/19 13:41; Admin Dose 3 ML; Start 01/28/19 at 13:00 Ferrous Sulfate (Feosol Liquid Cup) 300 mg WITH MEALS GTB Last administered on 01/28/19 12:08; Admin Dose 300 MG; Start 01/28/19 at 11:30 Multivitamins (Multivitamin) 30 ml DAILY GTB Last administered on 01/28/19 12:08; Admin Dose 30 ML; Start 01/28/19 at 11:00 Lansoprazole (Prevacid) 30 mg DAILY@06 NGT Last administered on 01/28/19at 12:08; Admin Dose 30 MG; Start 01/28/19 at 11:00 Diagnostic Test (Pha) (Accu-Chek) 1 ea Q4 XX Last administered on 01/28/19 13:25; Admin Dose 1 EA; Start 01/28/19 at 13:00 Insulin Aspart (Novolog Insulin Pen) NOVOLOG *MILD* ALGORITHM Q4 SC Last administered on 01/28/19at 13:24; Admin Dose 2 UNIT; Start 01/28/19 at 13:00 LUCIAN HARKINS NP January 28, 2019 13:56
[2019-01-28] MEDS ORDERED: CASPOFUNGIN 50 MG in SOD CHLORIDE 0.9% 250 ML IVPB SCH (14:00)
[2019-01-28] MEDS ORDERED: CASPOFUNGIN 70 MG in SOD CHLORIDE 0.9% 250 ML IVPB ONE (16:00)
[2019-01-28] MEDS: DEXTROSE 10% 1,000 ML IV SCH (18:02)
[2019-01-28] MEDS: LORAZEPAM 2 MG INJ IV PRN (19:29)
[2019-01-28] MEDS: TERAZOSIN 5 MG CAP NGT SCH (21:00)
[2019-01-28] MEDS: ATORVASTATIN 40 MG TAB NGT SCH (21:19)
[2019-01-28] MEDS: LATANOPROST 0.005% 2.5 ML OPH BOTH EYES SCH (21:36)
[2019-01-28] MEDS: NYSTATIN/TRIAMCINOLONE 15 GM OINT TOP SCH (22:49)
[2019-01-29] VITALS (98 sets, daily range): BP systolic 81–151; BP diastolic 51–110; PULSE 0–150; RESP 14–38
[2019-01-29] MEDS: ALBUTEROL/IPRATROPIUM (NEB) 3 ML AMP HHN SCH ×5 (01:15→19:38)
[2019-01-29] MEDS: ACCU-CHEK XX SCH ×6 (01:16→21:01)
[2019-01-29] MEDS: INSULIN ASPART [NOVOLOG] 3 ML PEN SC SCH ×6 (01:19→21:03)
[2019-01-29] MEDS ORDERED: VANCOMYCIN 1 GM 250 ML IVPB SCH (03:00)
[2019-01-29] MEDS: metroNIDAZOLE 500 MG/NS (PMX) 100 ML IVPB SCH ×3 (06:20→21:35)
[2019-01-29] MEDS: METHYLPREDNISOLONE 40 MG INJ IV SCH ×3 (06:20→21:35)
[2019-01-29] MEDS: FUROSEMIDE 40 MG INJ IV SCH ×2 (06:20→18:01)
[2019-01-29] MEDS: LANSOPRAZOLE 30 MG CAP NGT SCH (06:20)
[2019-01-29] MEDS: FERROUS SULFATE 60 MG/ML 5ML CUP GTB SCH ×3 (07:35→18:01)
--- NOTE | 2019-01-29 08:06 | CONS ---
Assessment/Plan Assessment/Plan Hospital Course (Demo Recall) 88 yo male [facility] for SOB and febrile Interval hx: Pt transferred to ICU for altered mental status. On levophed. Tachycardia. Speech therapy recommends tube feeds, pending dietary recommendations 1. Severe anemia likely due to chronic disease, last work up while admitted to [facility] about a week ago was neg for GI bleeding, including EGD/colon which was done -s/p EGD and colonoscopy by Dr Frost 01/09/19 which didn't find an obvious GI etiology to explain anemia. AVM or a small lesion could be missed due to poor prep. Pt likely needs capsule endoscopy -Neg fob, elevate retic, Low iron, tibc, [place] [id number] 2. Cystic lesion along pancreas body - 4.3 cm cystic lesion along the pancreas body, enlarged since 10/10/2012 (previously 2.4 cm). 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 -CEA wnl 3. Severe gastritis 4. Hemorrhoids 5. Hital hernia 6. A fib, -eliquis was stopped 01/06 during previous admission, on ASA 7. COPD 8. HTN 9. Hypothyroidism 10. Bilateral groin cellulitis 11. Rheumatoid arthritis. 12. Diabetes mellitus. 13. Peripheral vascular disease. 14. CHF 15. 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 Sepsis Plan Supportive ICU care NH3 Ok to start tube feeds Pt will need outpatient EUS to evaluate pancreatic mass Recommend capsule endoscopy as outpatient GI prophylaxis: protonix QD Pain management Pt examined and plan of care discussed with Dr. Frost Consultation Date/Type/Reason Admit Date/Time Jan 17, 2019 at 15:58 Initial Consult Date 01/18/19 Requesting Provider: IVAN AKHTAR MD Date/Time of Note DATE: 01/29/19 TIME: 07:58 Exam/Review of Systems Exam Vitals Vital Signs Date Temp Pulse Resp B/P (MAP) Pulse Ox O2 O2 Flow FiO2 Time Delivery Rate 01/29/19 131 21 126/77 99 06:30 (93) 01/29/19 Nasal 06:00 Cannula 01/29/19 3.0 05:32 01/29/19 98.0 04:00 01/27/19 30 14:25 Intake and Output 01/28/19 01/28/19 01/29/19 1515:00 23:00 07:00 IntakeIntake Total 1101.125 ml 992.48 ml 734.47 ml OutputOutput Total 440 ml 700 ml 610 ml BalanceBalance 661.125 ml 292.48 ml 124.47 ml Constitutional: alert Eyes: nl sclera, other (rt eye lid closed, PERRL) Respiratory: diminished breath sounds Cardiovascular: regular rate and rhythm Musculoskeletal: muscle weakness, other (BUE tremors) Extremities: edema Neurological: other (Pt is alert but not answering questions or following commands) Results Result Diagram: 01/29/195 01/29/195 Results 24hrs Laboratory Tests Test 01/28/19 08:46 01/28/19 13:19 01/28/19 17:24 01/28/19 21:18 White Blood Count 24.1 #H Red Blood Count 2.78 L Hemoglobin 8.1 L Hematocrit 25.3 L Mean Corpuscular 91.0 Volume Mean Corpuscular 29.1 Hemoglobin Mean Corpuscular 32.0 Hemoglobin Concent Red Cell 18.2 H Distribution Width Platelet Count 250 # Mean Platelet 10.9 H Volume Immature 1.700 H Granulocytes % Neutrophils % 89.1 H Segmented 66 Neutrophils % (Manual) Band Neutrophils % 31 H (Manual) Lymphocytes % 7.3 L Lymphocytes % 2 L (Manual) Monocytes % 1.5 Eosinophils % 0.0 Basophils % 0.4 Myelocytes % 1 H (Manual) Nucleated Red 0.2 H Blood Cells % Immature 0.410 H Granulocytes # Neutrophils # 21.5 H Neutrophils # 17.7 H (Manual) Band Neutrophils # 7.4 H Lymphocytes 0.4 L (Manual) Lymphocytes # 1.8 Monocytes # 0.4 Eosinophils # 0.0 Basophils # 0.1 Myelocytes # 0.2 H Nucleated Red 0.0 Blood Cells # Platelet Estimate NORMAL Polychromasia 1+ Hypochromasia 3+ Poikilocytosis 2+ Anisocytosis 2+ Macrocytosis 2+ Target Cells 2+ Sodium Level 142 Potassium Level 4.5 Chloride Level 107 Carbon Dioxide 26 Level Anion Gap 9 Blood Urea 38 H Nitrogen Creatinine 1.42 H Est Glomerular Filtrat Rate mL/min Glucose Level 148 Calcium Level 8.3 L Magnesium Level 1.9 Bedside Glucose 181 186 160 Test 01/29/19 01:15 01/29/19 04:45 01/29/19 04:53 01/29/19 07:00 Bedside Glucose 196 189 White Blood Count 34.0 #H Red Blood Count 2.66 L Hemoglobin 7.8 L Hematocrit 24.8 L Mean Corpuscular 93.2 Volume Mean Corpuscular 29.3 Hemoglobin Mean Corpuscular 31.5 L Hemoglobin Concent Red Cell 18.8 H Distribution Width Platelet Count 231 Mean Platelet 11.0 H Volume Immature 2.500 H Granulocytes % Neutrophils % Segmented 66 Neutrophils % (Manual) Band Neutrophils % 24 H (Manual) Lymphocytes % Lymphocytes % 3 L (Manual) Monocytes % Monocytes % 5 (Manual) Eosinophils % Basophils % Metamyelocytes % 2 H (manual) Nucleated Red 0.1 H Blood Cells % Immature 0.850 H Granulocytes # Neutrophils # Neutrophils # 25.2 H (Manual) Band Neutrophils # 8.1 H Lymphocytes 1.0 (Manual) Lymphocytes # Monocytes # Monocytes # 1.7 H (Manual) Eosinophils # Basophils # Metamyelocytes # 0.6 H Nucleated Red Blood Cells # Platelet Estimate NORMAL Polychromasia 3+ Hypochromasia 1+ Poikilocytosis 3+ Anisocytosis 3+ Microcytosis 1+ Macrocytosis 3+ Sodium Level 143 Potassium Level 3.6 Chloride Level 108 Carbon Dioxide 28 Level Anion Gap 7 Blood Urea 39 H Nitrogen Creatinine 1.41 H Est Glomerular Filtrat Rate mL/min Glucose Level 167 Calcium Level 8.0 L Phosphorus Level 4.2 Magnesium Level 1.8 Blood Gas Specimen Blood arterial Source Arterial Blood 01/29/2019 7:04:15 Date Drawn AM Arterial Blood pH 7.379 (Temp corrected) Arterial Blood 45.0 pCO2 (Temp correct) Arterial Blood pO2 113.7 H (Temp corrected) Arterial Blood 26.0 HCO3 Arterial Blood 0.6 Base Excess Arterial Blood 97.9 Oxygen Saturation Manuel Test ACCEPTAB Arterial Blood Gas Right Radial Puncture Site Arterial 0.3 Blood Carboxyhemog lobin Arterial Blood 0.5 Methemoglobin Blood Gas A-a O2 47.3 H Differential Oxyhemoglobin 97.1 Percent Blood Gas 37.0 Temperature Blood Gas Modality NASAL CANNULA FiO2 30.0 Blood Gas Notified TM Whom Blood Gas Notified 01/29/2019 7:35:10 Time AM Medications Medication Current Medications Lactulose (Enulose) 20 gm DAILY PRN PO CONSTIPATION; Start 01/17/19 at 18:17 Acetaminophen (Tylenol Tab) 650 mg Q4H PRN PO PAIN Last administered on 01/23/19at 22:48; Admin Dose 650 MG; Start 01/17/19 at 18:17 Miscellaneous Information (Pending [facility] Order For Wound Care) This patient ramirez... PRN PRN XX WOUND CARE; Start 01/17/19 at 18:17 Albuterol/ Ipratropium (Duoneb) 3 ml Q2H RESP THERAPY PRN HHN SHORTNESS OF BREATH; Start 01/17/19 at 18:17 Bisacodyl (Dulcolax) 10 mg BID PRN PO CONSTIPATION; Start 01/17/19 at 18:17; Status Hold Folic Acid (Folic Acid) 1 mg DAILY PO Last administered on 01/28/19at 09:00; Admin Dose 1 MG; Start 01/17/19 at 18:17 Latanoprost (Xalatan) 1 drop HS BOTH EYES Last administered on 01/28/19at 21:36; Admin Dose 1 DROP; Start 01/17/19 at 18:17 Nitroglycerin (Nitroglycerin (Sl Tab) 0.4 Mg) 0.4 tab Q5M PRN SL CHEST PAIN; Start 01/17/19 at 18:17 Nystatin (Nystatin Powder) 1 applic BID TOP Last administered on 01/28/19at 23:42; Admin Dose 1 APPLIC; Start 01/17/19 at 18:17 IV Flush (NS 3 ml) 3 ml PER PROTOCOL IV ; Start 01/17/19 at 18:17 Miscellaneous Information 1 ea NOTE XX ; Start 01/17/19 at 18:17 Glucose (Glutose) 15 gm Q15M PRN PO DECREASED GLUCOSE; Start 01/17/19 at 18:17 Glucose (Glutose) 22.5 gm Q15M PRN PO DECREASED GLUCOSE; Start 01/17/19 at 18:17 Dextrose (D50w Syringe) 25 ml Q15M PRN IV DECREASED GLUCOSE; Start 01/17/19 at 18:17 Dextrose (D50w Syringe) 50 ml Q15M PRN IV DECREASED GLUCOSE; Start 01/17/19 at 18:17 Glucagon (Glucagen) 1 mg Q15M PRN IM DECREASED GLUCOSE; Start 01/17/19 at 18:17 Glucose (Glutose) 15 gm Q15M PRN BUCCAL DECREASED GLUCOSE; Start 01/17/19 at 18:17 Zinc Sulfate (Zinc Sulfate) 220 mg DAILY PO Last administered on 01/28/19 09:00; Admin Dose 220 MG; Start 01/17/19 at 18:17 Ascorbic Acid (Vitamin C) 250 mg DAILY PO Last administered on 01/28/19 08:59; Admin Dose 250 MG; Start 01/17/19 at 18:17 Multi-Ingredient Ointment (Aquaphor Oint 52.5 Gm) 1 applic BID TOP Last administered on 01/28/19 22:49; Admin Dose 1 APPLIC; Start 01/17/19 at 18:17 Aspirin (Aspirin) 81 mg DAILY PO Last administered on 01/28/19 09:00; Admin Dose 81 MG; Start 01/17/19 at 18:17 Bisacodyl (Dulcolax Supp) 10 mg DAILY PRN [place] CONSTIPATION; Start 01/17/19 at 18:17 Zinc Acetate/ Diphenhydramine (Benadryl 2% Cr) 1 applic Q6H PRN TOP ITCHING Las t administered on 01/26/19 07:54; Admin Dose 1 APPLIC; Start 01/19/19 at 16:37 Epoetin Dae-epbx (RETACRIT(non-esrd)) 20,000 unit Mo@1700 SC Last administered on 01/27/19 19:28; Admin Dose 20,000 UNIT; Start 01/20/19 at 17:00 IV Flush (NS 10 ml) 10 ml PRN PRN IV IV PROTOCOL; Start 01/20/19 at 14:30 Cyanocobalamin (Vitamin B12 Inj) 1,000 mcg Q7D IM ; Start 02/03/19 at 09:00 Dextrose 1,000 ml @ 40 mls/hr Q24H IV Last administered on 01/28/19 18:02; Admin Dose 40 MLS/HR; Start 01/26/19 at 13:00 Metoprolol Tartrate (Lopressor) 5 mg Q4H PRN IV HR>110 Hold SBP<100; Start 01/26/19 at 14:30 Furosemide (Lasix) 40 mg BID DIURETICS IV Last administered on 01/29/19 06:20; Admin Dose 40 MG; Start 01/27/19 at 18:00 Vancomycin HCl (Vanco Iv Per Pharmacy) VANCOMYCIN PER PHARMACY PER PROTOCOL XX ; Start 01/27/19 at 12:00 Norepinephrine 250 ml @ 1.875 mls/ hr TITRATE IV Last administered on 01/28/19 23:52; Admin Dose 28.125 MLS/HR; Start 01/27/19 at 12:30 Methylprednisolone Sodium Succinate (Solu-Medrol) 40 mg Q8 IV Last administered on 01/29/19 06:20; Admin Dose 40 MG; Start 01/27/19 at 14:00 Enoxaparin Sodium (Lovenox) 60 mg DAILY SC Last administered on 01/28/19 09:00; Admin Dose 60 MG; Start 01/28/19 at 09:00 Lorazepam (Ativan) 1 mg Q2 PRN IV SEIZURES Last administered on 01/28/19 19:29; Admin Dose 1 MG; Start 01/27/19 at 14:00 Aztreonam 50 ml @ 100 mls/hr Q12 IVPB Last administered on 01/28/19 21:19; Admin Dose 100 MLS/HR; Start 01/27/19 at 16:30 Metronidazole 100 ml @ 100 mls/hr Q8 IVPB Last administered on 01/29/19 06:20; Admin Dose 100 MLS/HR; Start 01/27/19 at 15:00 Vancomycin HCl 250 ml @ 125 mls/hr Q36H IVPB Last administered on 01/29/19 03:32; Admin Dose 125 MLS/HR; Start 01/29/19 at 03:00 Atorvastatin Calcium (Lipitor) 40 mg QHS NGT Last administered on 01/28/19 21:1 9; Admin Dose 40 MG; Start 01/28/19 at 21:00 Docusate Sodium (Colace Liquid Cup) 100 mg BID NGT ; Start 01/27/19 at 22:00; Status Hold Terazosin HCl (Hytrin) 10 mg HS NGT ; Start 01/28/19 at 21:00 Levetiracetam 100 ml @ 400 mls/hr Q12 IVPB Last administered on 01/28/19 21:19; Admin Dose 400 MLS/HR; Start 01/28/19 at 09:00 Levothyroxine Sodium (Synthroid) 125 mcg BEFORE BREAKFAST NGT Last administ ered on 01/28/19 06:55; Admin Dose 125 MCG; Start 01/28/19 at 07:00 Albuterol/ Ipratropium (Duoneb) 3 ml Q4H RESP THERAPY HHN Last administered on 01/29/19 05:32; Admin Dose 3 ML; Start 01/28/19 at 13:00 Ferrous Sulfate (Feosol Liquid Cup) 300 mg WITH MEALS GTB Last administered on 01/28/19 17:27; Admin Dose 300 MG; Start 01/28/19 at 11:30 Multivitamins (Multivitamin) 30 ml DAILY GTB Last administered on 01/28/19 12:08; Admin Dose 30 ML; Start 01/28/19 at 11:00 Lansoprazole (Prevacid) 30 mg DAILY@06 NGT Last administered on 01/29/19 06:20; Admin Dose 30 MG; Start 01/28/19 at 11:00 Diagnostic Test (Pha) (Accu-Chek) 1 ea Q4 XX Last administered on 01/29/19 04:57; Admin Dose 1 EA; Start 01/28/19 at 13:00 Caspofungin 50 mg/ Sodium Chloride 250 ml @ 250 mls/hr Q24H IVPB ; Start 01/29/19 at 15:00 Nystatin/ Triamcinolone Acetonide (Mycolog Oint) 1 applic BID TOP Last administered on 01/28/19 22:49; Admin Dose 1 APPLIC; Start 01/28/19 at 22:30 Insulin Aspart (Novolog Insulin Pen) NOVOLOG *MILD* ALGORI... Q4 SC Last administered on 01/29/19 04:55; Admin Dose 2 UNIT; Start 01/29/19 at 05:00 GISELLA VENTURA January 29, 2019 08:06
[2019-01-29] MEDS: NORepinephrine 8MG/250 ML (PMX 250 ML IV SCH (09:57)
[2019-01-29] MEDS: LEVOTHYROXINE 125 MCG TAB NGT SCH (09:58)
[2019-01-29] MEDS: ENOXAPARIN 60 MG/0.6 ML SYG SC SCH (09:58)
[2019-01-29] MEDS: ZINC SULFATE 220 MG CAP PO SCH (09:59)
[2019-01-29] MEDS: ASCORBIC ACID 250 MG TAB PO SCH (09:59)
[2019-01-29] MEDS: MULTIVITAMINS 30 ML CUP GTB SCH (09:59)
[2019-01-29] MEDS: FOLIC ACID 1 MG TAB PO SCH (09:59)
[2019-01-29] MEDS: ASPIRIN 81 MG TAB PO SCH (09:59)
--- NOTE | 2019-01-29 10:04 | CONS ---
Assessment/Plan Assessment/Plan Hospital Course (Demo Recall) 88 yo male with multiple medical problems including DM, CRF, RA, PVD and chronic afib on Eliquis who presented to [facility] 01/05/19 with severe normocytic anemia and Hg ~7. 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 # Anemia-normocytic -Hg stable at 7.8. currently on Levophed -Multifactorial at this time due to iron deficiency, vitamin b12 deficiency and also likely anemia of chronic kidney disease and inflammation. Elevated Methylmalonic acid level noted -Patient still has low iron level even though ferritin is elevated. Ferritin li luz elevated due to acute phase reactant. pt is now s/p IV iron. Pt is s/p EGD and colonoscopy by Dr Frost 01/09/19 which didn't find an obvious GI etiology to explain anemia. AVM or a small lesion could be missed due to poor prep. Pt likely needs capsule endoscopy -continue vitamin b12 weekly as vitamin b12 was low normal and methylmalonic acid was elevated. Continue folate as well. -No evidence of hemolysis at this time. -Transfuse to keep Hgb > 7. 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 -This may be a pseudocyst or a precancerous pancreatic lesion. -It has been growing in size but patient is asymptomatic. EUS with biopsy is recommended and can either be done inpatient or outpatient setting. -The patient at this time is unlikely a candidate for a whipple surgery however. Thank you to Dr. Alatorre for allowing [facility] A total of 40 minutes was spent in consultation with this patient and all his questions were answered. Consultation Date/Type/Reason Admit Date/Time Jan 17, 2019 at 15:58 Initial Consult Date 01/18/19 Type of Consult hematology Reason for Consultation anemia Requesting Provider: IVAN AKHTAR MD Date/Time of Note DATE: 01/29/19 TIME: 10:00 24 HR Interval Summary Free Text/Dictation still on levophed Exam/Review of Systems Exam Vitals Vital Signs Date Temp Pulse Resp B/P (MAP) Pulse Ox O2 O2 Flow FiO2 Time Delivery Rate 01/29/19 115 26 100 Nasal 2.0 08:40 Cannula 01/29/19 126/77 06:30 (93) 01/29/19 98.0 04:00 01/27/19 30 14:25 Intake and Output 01/28/19 01/28/19 01/29/19 1515:00 23:00 07:00 IntakeIntake Total 1101.125 ml 992.48 ml 774.47 ml OutputOutput Total 440 ml 700 ml 610 ml BalanceBalance 661.125 ml 292.48 ml 164.47 ml Constitutional: alert, frail Psych: anxiety, confusion Head: normocephalic Eyes: nl conjunctiva ENMT: nl external ears & nose Neck: supple Respiratory: clear to auscultation Cardiovascular: regular rate and rhythm Gastrointestinal: soft Musculoskeletal: nl extremities to inspection Extremities: normal pulses Results Result Diagram: 01/29/19 0445 01/29/19 0445 Results 24hrs Laboratory Tests Test 01/28/19 13:19 01/28/19 17:24 01/28/19 21:18 01/29/19 01:15 Bedside Glucose 181 186 160 196 Test 01/29/19 04:45 01/29/19 04:53 01/29/19 07:00 01/29/19 09:17 White Blood Count 34.0 #H Red Blood Count 2.66 L Hemoglobin 7.8 L Hematocrit 24.8 L Mean Corpuscular 93.2 Volume Mean Corpuscular 29.3 Hemoglobin Mean Corpuscular 31.5 L Hemoglobin Concent Red Cell 18.8 H Distribution Width Platelet Count 231 Mean Platelet 11.0 H Volume Immature 2.500 H Granulocytes % Neutrophils % Segmented 66 Neutrophils % (Manual) Band Neutrophils % 24 H (Manual) Lymphocytes % Lymphocytes % 3 L (Manual) Monocytes % Monocytes % 5 (Manual) Eosinophils % Basophils % Metamyelocytes % 2 H (manual) Nucleated Red 0.1 H Blood Cells % Immature 0.850 H Granulocytes # Neutrophils # Neutrophils # 25.2 H (Manual) Band Neutrophils # 8.1 H Lymphocytes 1.0 (Manual) Lymphocytes # Monocytes # Monocytes # 1.7 H (Manual) Eosinophils # Basophils # Metamyelocytes # 0.6 H Nucleated Red Blood Cells # Platelet Estimate NORMAL Polychromasia 3+ Hypochromasia 1+ Poikilocytosis 3+ Anisocytosis 3+ Microcytosis 1+ Macrocytosis 3+ Sodium Level 143 Potassium Level 3.6 Chloride Level 108 Carbon Dioxide 28 Level Anion Gap 7 Blood Urea 39 H Nitrogen Creatinine 1.41 H Est Glomerular Filtrat Rate mL/min Glucose Level 167 Calcium Level 8.0 L Phosphorus Level 4.2 Magnesium Level 1.8 Bedside Glucose 189 Blood Gas Specimen Blood arterial Source Arterial Blood 01/29/2019 7:04:15 Date Drawn AM Arterial Blood pH 7.379 (Temp corrected) Arterial Blood 45.0 pCO2 (Temp correct) Arterial Blood pO2 113.7 H (Temp corrected) Arterial Blood 26.0 HCO3 Arterial Blood 0.6 Base Excess Arterial Blood 97.9 Oxygen Saturation Manuel Test ACCEPTAB Arterial Blood Gas Right Radial Puncture Site Arterial 0.3 Blood Carboxyhemog lobin Arterial Blood 0.5 Methemoglobin Blood Gas A-a O2 47.3 H Differential Oxyhemoglobin 97.1 Percent Blood Gas 37.0 Temperature Blood Gas Modality NASAL CANNULA FiO2 30.0 Blood Gas Notified TM Whom Blood Gas Notified 01/29/2019 7:35:10 Time AM Ammonia < 9 L Medications Medication Current Medications Lactulose (Enulose) 20 gm DAILY PRN PO CONSTIPATION; Start 01/17/19 at 18:17 Acetaminophen (Tylenol Tab) 650 mg Q4H PRN PO PAIN Last administered on 01/23/19at 22:48; Admin Dose 650 MG; Start 01/17/19 at 18:17 Miscellaneous Information [facility] This patient ramirez... PRN PRN XX WOUND CARE; Start 01/17/19 at 18:17 Albuterol/ Ipratropium (Duoneb) 3 ml Q2H RESP THERAPY PRN HHN SHORTNESS OF BREATH; Start 01/17/19 at 18:17 Bisacodyl (Dulcolax) 10 mg BID PRN PO CONSTIPATION; Start 01/17/19 at 18:17; Status Hold Folic Acid (Folic Acid) 1 mg DAILY PO Last administered on 01/28/19at 09:00; Admin Dose 1 MG; Start 01/17/19 at 18:17 Latanoprost (Xalatan) 1 drop HS BOTH EYES Last administered on 01/28/19at 21:36; Admin Dose 1 DROP; Start 01/17/19 at 18:17 Nitroglycerin (Nitroglycerin (Sl Tab) 0.4 Mg) 0.4 tab Q5M PRN SL CHEST PAIN; Start 01/17/19 at 18:17 Nystatin (Nystatin Powder) 1 applic BID TOP Last administered on 01/28/19at 23:42; Admin Dose 1 APPLIC; Start 01/17/19 at 18:17 IV Flush (NS 3 ml) 3 ml PER PROTOCOL IV ; Start 01/17/19 at 18:17 Miscellaneous Information 1 ea NOTE XX ; Start 01/17/19 at 18:17 Glucose (Glutose) 15 gm Q15M PRN PO DECREASED GLUCOSE; Start 01/17/19 at 18:17 Glucose (Glutose) 22.5 gm Q15M PRN PO DECREASED GLUCOSE; Start 01/17/19 at 18:1 7 Dextrose (D50w Syringe) 25 ml Q15M PRN IV DECREASED GLUCOSE; Start 01/17/19 at 18:17 Dextrose (D50w Syringe) 50 ml Q15M PRN IV DECREASED GLUCOSE; Start 01/17/19 at 18:17 Glucagon (Glucagen) 1 mg Q15M PRN IM DECREASED GLUCOSE; Start 01/17/19 at 18:17 Glucose (Glutose) 15 gm Q15M PRN BUCCAL DECREASED GLUCOSE; Start 01/17/19 at 18:17 Zinc Sulfate (Zinc Sulfate) 220 mg DAILY PO Last administered on 01/28/19 09:00; Admin Dose 220 MG; Start 01/17/19 at 18:17 Ascorbic Acid (Vitamin C) 250 mg DAILY PO Last administered on 01/28/19 08:59; Admin Dose 250 MG; Start 01/17/19 at 18:17 Multi-Ingredient Ointment (Aquaphor Oint 52.5 Gm) 1 applic BID TOP Last administered on 01/28/19at 22:49; Admin Dose 1 APPLIC; Start 01/17/19 at 18:17 Aspirin (Aspirin) 81 mg DAILY PO Last administered on 01/28/19 09:00; Admin Dose 81 MG; Start 01/17/19 at 18:17 Bisacodyl (Dulcolax Supp) 10 mg DAILY PRN [place] CONSTIPATION; Start 01/17/19 at 18:17 Zinc Acetate/ Diphenhydramine (Benadryl 2% Cr) 1 applic Q6H PRN TOP ITCHING Last administered on 01/26/19 07:54; Admin Dose 1 APPLIC; Start 01/19/19 at 16:37 Epoetin Dae-epbx (RETACRIT(non-esrd)) 20,000 unit Mo@1700 SC Last administered on 01/27/19 19:28; Admin Dose 20,000 UNIT; Start 01/20/19 at 17:00 IV Flush (NS 10 ml) 10 ml PRN PRN IV IV PROTOCOL; Start 01/20/19 at 14:30 Cyanocobalamin (Vitamin B12 Inj) 1,000 mcg Q7D IM ; Start 02/03/19 at 09:00 Dextrose 1,000 ml @ 40 mls/hr Q24H IV Last administered on 01/28/19 18:02; Admin Dose 40 MLS/HR; Start 01/26/19 at 13:00 Metoprolol Tartrate (Lopressor) 5 mg Q4H PRN IV HR>110 Hold SBP<100; Start 01/26/19 at 14:30 Furosemide (Lasix) 40 mg BID DIURETICS IV Last administered on 01/29/19 06:20; Admin Dose 40 MG; Start 01/27/19 at 18:00 Vancomycin HCl (Vanco Iv Per Pharmacy) VANCOMYCIN PER PHARMACY PER PROTOCOL XX ; Start 01/27/19 at 12:00 Norepinephrine 250 ml @ 1.875 mls/ hr TITRATE IV Last administered on 01/28/19 23:52; Admin Dose 28.125 MLS/HR; Start 01/27/19 at 12:30 Methylprednisolone Sodium Succinate (Solu-Medrol) 40 mg Q8 IV Last administered on 01/29/19 06:20; Admin Dose 40 MG; Start 01/27/19 at 14:00 Enoxaparin Sodium (Lovenox) 60 mg DAILY SC Last administered on 01/28/19 09:00; Admin Dose 60 MG; Start 01/28/19 at 09:00 Lorazepam (Ativan) 1 mg Q2 PRN IV SEIZURES Last administered on 01/28/19 19:29; Admin Dose 1 MG; Start 01/27/19 at 14:00 Aztreonam 50 ml @ 100 mls/hr Q12 IVPB Last administered on 01/28/19 21:19; Admin Dose 100 MLS/HR; Start 01/27/19 at 16:30 Metronidazole 100 ml @ 100 mls/hr Q8 IVPB Last administered on 01/29/19 06:20; Admin Dose 100 MLS/HR; Start 01/27/19 at 15:00 Vancomycin HCl 250 ml @ 125 mls/hr Q36H IVPB Last administered on 01/29/19 03:32; Admin Dose 125 MLS/HR; Start 01/29/19 at 03:00 Atorvastatin Calcium (Lipitor) 40 mg QHS NGT Last administered on 01/28/19 21:19; Admin Dose 40 MG; Start 01/28/19 at 21:00 Docusate Sodium (Colace Liquid Cup) 100 mg BID NGT ; Start 01/27/19 at 22:00; Status Hold Terazosin HCl (Hytrin) 10 mg HS NGT ; Start 01/28/19 at 21:00 Levetiracetam 100 ml @ 400 mls/hr Q12 IVPB Last administered on 01/28/19 21:19; Admin Dose 400 MLS/HR; Start 01/28/19 at 09:00 Levothyroxine Sodium (Synthroid) 125 mcg BEFORE BREAKFAST NGT Last administered on 01/28/19 06:55; Admin Dose 125 MCG; Start 01/28/19 at 07:00 Albuterol/ Ipratropium (Duoneb) 3 ml Q4H RESP THERAPY HHN Last administered on 01/29/19 08:37; Admin Dose 3 ML; Start 01/28/19 at 13:00 Ferrous Sulfate (Feosol Liquid Cup) 300 mg WITH MEALS GTB Last administered on 01/28/19 17:27; Admin Dose 300 MG; Start 01/28/19 at 11:30 Multivitamins (Multivitamin) 30 ml DAILY GTB Last administered on 01/28/19 12:08; Admin Dose 30 ML; Start 01/28/19 at 11:00 Lansoprazole (Prevacid) 30 mg DAILY@06 NGT Last administered on 01/29/19 06:20; Admin Dose 30 MG; Start 01/28/19 at 11:00 Diagnostic Test (Pha) (Accu-Chek) 1 ea Q4 XX Last administered on 01/29/19 04:57; Admin Dose 1 EA; Start 01/28/19 at 13:00 Caspofungin 50 mg/ Sodium Chloride 250 ml @ 250 mls/hr Q24H IVPB ; Start 01/29/19 at 15:00 Nystatin/ Triamcinolone Acetonide (Mycolog Oint) 1 applic BID TOP Last administered on 01/28/19at 22:49; Admin Dose 1 APPLIC; Start 01/28/19 at 22:30 Insulin Aspart (Novolog Insulin Pen) NOVOLOG *MILD* ALGORI... Q4 SC Last administered on 01/29/19at 04:55; Admin Dose 2 UNIT; Start 01/29/19 at 05:00 OREN MARSH M.D. January 29, 2019 10:04
[2019-01-29] MEDS: LEVETIRACETAM 500 MG (PMX) 100 ML IVPB SCH ×2 (10:11→20:58)
[2019-01-29] MEDS: NYSTATIN 30 GM POWDER BTL TOP SCH ×2 (10:23→21:00)
[2019-01-29] MEDS: NYSTATIN/TRIAMCINOLONE 15 GM OINT TOP SCH ×2 (10:24→21:01)
[2019-01-29] MEDS: BALSAM PERU/CASTOR OIL 60 GM TUBE TOP SCH ×2 (10:24→21:01)
[2019-01-29] MEDS: AQUAPHOR 52.5 GM OINT TOP SCH ×2 (10:24→21:00)
[2019-01-29] MEDS: AZTREONAM 1 GM/NS (PMX) 50 ML IVPB SCH ×2 (10:53→20:58)
--- NOTE | 2019-01-29 11:09 | CONS ---
Consult Date/Type/Reason Admit Date/Time Jan 17, 2019 at 15:58 Initial Consult Date 01/18/19 Type of Consult Pulmonary Requesting Provider: IVAN AKHTAR MD Date/Time of Note DATE: 01/29/19 TIME: 11:04 Subjective Patient remains modestly somnolent on nasal cannula O2. Chest x-ray shows bilateral infiltrates right greater than left Objective Vital Signs Date Temp Pulse Resp B/P (MAP) Pulse Ox O2 O2 Flow FiO2 Time Delivery Rate 01/29/19 115 26 100 Nasal 2.0 08:40 Cannula 01/29/19 126/77 06:30 (93) 01/29/19 98.0 04:00 01/27/19 30 14:25 Intake and Output 01/28/19 01/28/19 01/29/19 1515:00 23:00 07:00 IntakeIntake Total 1101.125 ml 992.48 ml 774.47 ml OutputOutput Total 440 ml 700 ml 610 ml BalanceBalance 661.125 ml 292.48 ml 164.47 ml Exam PHYSICAL EXAMINATION: GENERAL: Elderly-appearing gentleman, largely somnolent on nasal cannula. NECK: Supple. No JVD or lymphadenopathy. CARDIAC: S1, S2. No added sounds or murmurs. CHEST: Diminished air entry bilaterally. ABDOMEN: Soft, nontender. No guarding or rebound. EXTREMITIES: No cyanosis, clubbing. A 1+ edema. NEUROLOGIC: Unable to assess. Vent Setting Fraction of Inspired Oxygen pe: 21 Results/Medications Result Diagram: 01/29/19 0445 01/29/19 0445 Results 24 hrs Laboratory Tests Test 01/28/19 13:19 01/28/19 17:24 01/28/19 21:18 01/29/19 01:15 Bedside Glucose 181 186 160 196 Test 01/29/19 04:45 01/29/19 04:53 01/29/19 07:00 01/29/19 09:17 White Blood Count 34.0 #H Red Blood Count 2.66 L Hemoglobin 7.8 L Hematocrit 24.8 L Mean Corpuscular 93.2 Volume Mean Corpuscular 29.3 Hemoglobin Mean Corpuscular 31.5 L Hemoglobin Concent Red Cell 18.8 H Distribution Width Platelet Count 231 Mean Platelet 11.0 H Volume Immature 2.500 H Granulocytes % Neutrophils % Segmented 66 Neutrophils % (Manual) Band Neutrophils % 24 H (Manual) Lymphocytes % Lymphocytes % 3 L (Manual) Monocytes % Monocytes % 5 (Manual) Eosinophils % Basophils % Metamyelocytes % 2 H (manual) Nucleated Red 0.1 H Blood Cells % Immature 0.850 H Granulocytes # Neutrophils # Neutrophils # 25.2 H (Manual) Band Neutrophils # 8.1 H Lymphocytes 1.0 (Manual) Lymphocytes # Monocytes # Monocytes # 1.7 H (Manual) Eosinophils # Basophils # Metamyelocytes # 0.6 H Nucleated Red Blood Cells # Platelet Estimate NORMAL Polychromasia 3+ Hypochromasia 1+ Poikilocytosis 3+ Anisocytosis 3+ Microcytosis 1+ Macrocytosis 3+ Sodium Level 143 Potassium Level 3.6 Chloride Level 108 Carbon Dioxide 28 Level Anion Gap 7 Blood Urea 39 H Nitrogen Creatinine 1.41 H Est Glomerular Filtrat Rate mL/min Glucose Level 167 Calcium Level 8.0 L Phosphorus Level 4.2 Magnesium Level 1.8 Bedside Glucose 189 Blood Gas Specimen Blood arterial Source Arterial Blood 01/29/2019 7:04:15 Date Drawn AM Arterial Blood pH 7.379 (Temp corrected) Arterial Blood 45.0 pCO2 (Temp correct) Arterial Blood pO2 113.7 H (Temp corrected) Arterial Blood 26.0 HCO3 Arterial Blood 0.6 Base Excess Arterial Blood 97.9 Oxygen Saturation Manuel Test ACCEPTAB Arterial Blood Gas Right Radial Puncture Site Arterial 0.3 Blood Carboxyhemog lobin Arterial Blood 0.5 Methemoglobin Blood Gas A-a O2 47.3 H Differential Oxyhemoglobin 97.1 Percent Blood Gas 37.0 Temperature Blood Gas Modality NASAL CANNULA FiO2 30.0 Blood Gas Notified TM Whom Blood Gas Notified 01/29/2019 7:35:10 Time AM Ammonia < 9 L Test 01/29/19 10:38 Bedside Glucose 171 Medications Current Medications Lactulose (Enulose) 20 gm DAILY PRN PO CONSTIPATION; Start 01/17/19 at 18:17 Acetaminophen (Tylenol Tab) 650 mg Q4H PRN PO PAIN Last administered on 01/23/19at 22:48; Admin Dose 650 MG; Start 01/17/19 at 18:17 Miscellaneous Information (Pending [facility]yl Order For Wound Care) This patient ramirze... PRN PRN XX WOUND CARE; Start 01/17/19 at 18:17 Albuterol/ Ipratropium (Duoneb) 3 ml Q2H RESP THERAPY PRN HHN SHORTNESS OF BREATH; Start 01/17/19 at 18:17 Bisacodyl (Dulcolax) 10 mg BID PRN PO CONSTIPATION; Start 01/17/19 at 18:17; Status Hold Folic Acid (Folic Acid) 1 mg DAILY PO Last administered on 01/29/19 09:59; Admin Dose 1 MG; Start 01/17/19 at 18:17 Latanoprost (Xalatan) 1 drop HS BOTH EYES Last administered on 01/28/19at 21:36; Admin Dose 1 DROP; Start 01/17/19 at 18:17 Nitroglycerin (Nitroglycerin (Sl Tab) 0.4 Mg) 0.4 tab Q5M PRN SL CHEST PAIN; Start 01/17/19 at 18:17 Nystatin (Nystatin Powder) 1 applic BID TOP Last administered on 01/29/19 10:23; Admin Dose 1 APPLIC; Start 01/17/19 at 18:17 IV Flush (NS 3 ml) 3 ml PER PROTOCOL IV ; Start 01/17/19 at 18:17 Miscellaneous Information 1 ea NOTE XX ; Start 01/17/19 at 18:17 Glucose (Glutose) 15 gm Q15M PRN PO DECREASED GLUCOSE; Start 01/17/19 at 18:17 Glucose (Glutose) 22.5 gm Q15M PRN PO DECREASED GLUCOSE; Start 01/17/19 at 1 8:17 Dextrose (D50w Syringe) 25 ml Q15M PRN IV DECREASED GLUCOSE; Start 01/17/19 at 18:17 Dextrose (D50w Syringe) 50 ml Q15M PRN IV DECREASED GLUCOSE; Start 01/17/19 at 18:17 Glucagon (Glucagen) 1 mg Q15M PRN IM DECREASED GLUCOSE; Start 01/17/19 at 18:17 Glucose (Glutose) 15 gm Q15M PRN BUCCAL DECREASED GLUCOSE; Start 01/17/19 at 18:17 Zinc Sulfate (Zinc Sulfate) 220 mg DAILY PO Last administered on 01/29/19 09:59; Admin Dose 220 MG; Start 01/17/19 at 18:17 Ascorbic Acid (Vitamin C) 250 mg DAILY PO Last administered on 01/29/19 09:59; Admin Dose 250 MG; Start 01/17/19 at 18:17 Multi-Ingredient Ointment (Aquaphor Oint 52.5 Gm) 1 applic BID TOP Last administered on 01/29/19 10:24; Admin Dose 1 APPLIC; Start 01/17/19 at 18:17 Aspirin (Aspirin) 81 mg DAILY PO Last administered on 01/29/19 09:59; Admin Dose 81 MG; Start 01/17/19 at 18:17 Bisacodyl (Dulcolax Supp) 10 mg DAILY PRN IN CONSTIPATION; Start 01/17/19 at 18:17 Zinc Acetate/ Diphenhydramine (Benadryl 2% Cr) 1 applic Q6H PRN TOP ITCHING Last administered on 01/26/19 07:54; Admin Dose 1 APPLIC; Start 01/19/19 at 16:37 Epoetin Dae-epbx (RETACRIT(non-esrd)) 20,000 unit Mo@1700 SC Last administered on 01/27/19 19:28; Admin Dose 20,000 UNIT; Start 01/20/19 at 17:00 IV Flush (NS 10 ml) 10 ml PRN PRN IV IV PROTOCOL; Start 01/20/19 at 14:30 Cyanocobalamin (Vitamin B12 Inj) 1,000 mcg Q7D IM ; Start 02/03/19 at 09:00 Dextrose 1,000 ml @ 40 mls/hr Q24H IV Last administered on 01/28/19 18:02; Admin Dose 40 MLS/HR; Start 01/26/19 at 13:00 Metoprolol Tartrate (Lopressor) 5 mg Q4H PRN IV HR>110 Hold SBP<100; Start 01/26/19 at 14:30 Furosemide (Lasix) 40 mg BID DIURETICS IV Last administered on 01/29/19 06:20; Admin Dose 40 MG; Start 01/27/19 at 18:00 Vancomycin HCl (Vanco Iv Per Pharmacy) VANCOMYCIN PER PHARMACY PER PROTOCOL XX ; Start 01/27/19 at 12:00 Norepinephrine 250 ml @ 1.875 mls/ hr TITRATE IV Last administered on 01/29/19 09:57; Admin Dose 18.75 MLS/HR; Start 01/27/19 at 12:30 Methylprednisolone Sodium Succinate (Solu-Medrol) 40 mg Q8 IV Last administered on 01/29/19 06:20; Admin Dose 40 MG; Start 01/27/19 at 14:00 Enoxaparin Sodium (Lovenox) 60 mg DAILY SC Last administered on 01/29/19 09:58; Admin Dose 60 MG; Start 01/28/19 at 09:00 Lorazepam (Ativan) 1 mg Q2 PRN IV SEIZURES Last administered on 01/28/19 19:29; Admin Dose 1 MG; Start 01/27/19 at 14:00 Aztreonam 50 ml @ 100 mls/hr Q12 IVPB Last administered on 01/29/19 10:53; Admin Dose 100 MLS/HR; Start 01/27/19 at 16:30 Metronidazole 100 ml @ 100 mls/hr Q8 IVPB Last administered on 01/29/19 06:20; Admin Dose 100 MLS/HR; Start 01/27/19 at 15:00 Vancomycin HCl 250 ml @ 125 mls/hr Q36H IVPB Last administered on 01/29/19 03:32; Admin Dose 125 MLS/HR; Start 01/29/19 at 03:00 Atorvastatin Calcium (Lipitor) 40 mg QHS NGT Last administered on 01/28/19 21:19; Admin Dose 40 MG; Start 01/28/19 at 21:00 Docusate Sodium (Colace Liquid Cup) 100 mg BID NGT ; Start 01/27/19 at 22:00; Status Hold Terazosin HCl (Hytrin) 10 mg HS NGT ; Start 01/28/19 at 21:00 Levetiracetam 100 ml @ 400 mls/hr Q12 IVPB Last administered on 01/29/19 10:11; Admin Dose 400 MLS/HR; Start 01/28/19 at 09:00 Levothyroxine Sodium (Synthroid) 125 mcg BEFORE BREAKFAST NGT Last administered on 01/29/19 09:58; Admin Dose 125 MCG; Start 01/28/19 at 07:00 Albuterol/ Ipratropium (Duoneb) 3 ml Q4H RESP THERAPY HHN Last administered on 01/29/19 08:37; Admin Dose 3 ML; Start 01/28/19 at 13:00 Ferrous Sulfate (Feosol Liquid Cup) 300 mg WITH MEALS GTB Last administered on 5/7/19at 17:27; Admin Dose 300 MG; Start 01/28/19 at 11:30 Multivitamins (Multivitamin) 30 ml DAILY GTB Last administered on 01/29/19 09:59; Admin Dose 30 ML; Start 01/28/19 at 11:00 Lansoprazole (Prevacid) 30 mg DAILY@06 NGT Last administered on 01/29/19 06:20; Admin Dose 30 MG; Start 01/28/19 at 11:00 Diagnostic Test (Pha) (Accu-Chek) 1 ea Q4 XX Last administered on 01/29/19 10:40; Admin Dose 1 EA; Start 01/28/19 at 13:00 Caspofungin 50 mg/ Sodium Chloride 250 ml @ 250 mls/hr Q24H IVPB ; Start 01/29/19 at 15:00 Nystatin/ Triamcinolone Acetonide (Mycolog Oint) 1 applic BID TOP Last administered on 01/29/19 10:24; Admin Dose 1 APPLIC; Start 01/28/19 at 22:30 Insulin Aspart (Novolog Insulin Pen) NOVOLOG *MILD* ALGORI... Q4 SC Last administered on 01/29/19 10:40; Admin Dose 1 UNIT; Start 01/29/19 at 05:00 Assessment/Plan Hospital Course (Demo Recall) IMPRESSION 1. Acute hypoxemic respiratory failure likely secondary to combination of volume overload and pneumonia 2. Encephalopathy underlying dementia versus toxic metabolic 3. Valvular heart disease 4. Severe dysphagia 5. Septic shock likely secondary to above 6. Anemia, no active GI bleeding Plan 1. Continue vasopressors titrate to keep map greater than 65 2. Continue broad-spectrum antibiotics 3. Diuretics once he more stable hemodynamically 4. Monitor H&H 5. Palliative care consult appreciated. Critical care time 40 minutes [facility]CRAE [facility] January 29, 2019 11:09
--- NOTE | 2019-01-29 11:24 | CONS ---
Assessment/Plan Assessment/Plan Hospital Course (Demo Recall) IMPRESSION: 1. Atrial fibrillation, currently rate controlled.-off systemic anticoagulation due to anemia. ON asa only due to anemia 2. Possible congestive heart failure by chest x-ray, which will be diastolic, acute on chronic by most recent echo with an EF of 60%. 3. Tricuspid regurgitation, moderate by most recent echo. 4. Acute on chronic renal failure-mild worsening 5. Possible pneumonia. 6. History of coronary artery disease, status post coronary artery bypass graft surgery. 7. Dyslipidemia. 8. Rheumatoid arthritis. 9. Groin cellulitis. 10. Anemia-worsening again today requiring transfusions PRBC's.Now post-op s/p endoscopy 11. Diabetes mellitus. 12. Sepsis/leukocytosis 14. abdominal mass 15. Rash-all over body with skin chaffing at this time, probable drug reaction 16. Encephalopathy-ongoing. MRI negative for acute CVA Recc: -Nowin ICU -serial ecg' -serial ecg's -dose IVP digoxin to improve HR control -Continue lasix but follow volume status closely -Continue statin -Currently off abx's/antifungals, f/u cx data -Ongoing GI eval of abd mass -Now on Lovenox/baby asa -ongoing neuro eval Consultation Date/Type/Reason Admit Date/Time Jan 17, 2019 at 15:58 Initial Consult Date 01/18/19 Type of Consult Cardiology Reason for Consultation AF Requesting Provider: IVAN AKHTAR MD Date/Time of Note DATE: 01/29/19 TIME: 11:18 Exam/Review of Systems Vital Signs Vitals Vital Signs Date Temp Pulse Resp B/P (MAP) Pulse Ox O2 O2 Flow FiO2 Time Delivery Rate 01/29/19 115 26 100 Nasal 2.0 08:40 Cannula 01/29/19 126/77 06:30 (93) 01/29/19 98.0 04:00 01/27/19 30 14:25 Intake and Output 01/28/19 01/28/19 01/29/19 1515:00 23:00 07:00 IntakeIntake Total 1101.125 ml 992.48 ml 774.47 ml OutputOutput Total 440 ml 700 ml 610 ml BalanceBalance 661.125 ml 292.48 ml 164.47 ml Exam Exam Review of Systems: CONSTITUTIONAL: No fevers, chills. PULMONARY: No sob CARDIOVASCULAR: No obvious chest pain/palpitations GASTROINTESTINAL: No nausea/vomiting. GENITOURINARY: No hematuria/dysuria. MUSCULOSKELETAL: No myagias/arthalgias. PSYCHIATRIC: The patient denies depression. NEUROLOGIC: encephalopathic Constitutional: other (encephlopathic) Psych: no complaints Head: normocephalic ENMT: mucosa pink and moist Neck: supple, jvd Respiratory: diminished breath sounds Cardiovascular: regular rate and rhythm Gastrointestinal: soft Musculoskeletal: muscle weakness (generalized) Extremities: other (No focal deficits) Labs Result Diagram: 01/29/19 0445 01/29/19 0445 Results 24hrs Laboratory Tests Test 01/28/19 13:19 01/28/19 17:24 01/28/19 21:18 01/29/19 01:15 Bedside Glucose 181 186 160 196 Test 01/29/19 04:45 01/29/19 04:53 01/29/19 07:00 01/29/19 09:17 White Blood Count 34.0 #H Red Blood Count 2.66 L Hemoglobin 7.8 L Hematocrit 24.8 L Mean Corpuscular 93.2 Volume Mean Corpuscular 29.3 Hemoglobin Mean Corpuscular 31.5 L Hemoglobin Concent Red Cell 18.8 H Distribution Width Platelet Count 231 Mean Platelet 11.0 H Volume Immature 2.500 H Granulocytes % Neutrophils % Segmented 66 Neutrophils % (Manual) Band Neutrophils % 24 H (Manual) Lymphocytes % Lymphocytes % 3 L (Manual) Monocytes % Monocytes % 5 (Manual) Eosinophils % Basophils % Metamyelocytes % 2 H (manual) Nucleated Red 0.1 H Blood Cells % Immature 0.850 H Granulocytes # Neutrophils # Neutrophils # 25.2 H (Manual) Band Neutrophils # 8.1 H Lymphocytes 1.0 (Manual) Lymphocytes # Monocytes # Monocytes # 1.7 H (Manual) Eosinophils # Basophils # Metamyelocytes # 0.6 H Nucleated Red Blood Cells # Platelet Estimate NORMAL Polychromasia 3+ Hypochromasia 1+ Poikilocytosis 3+ Anisocytosis 3+ Microcytosis 1+ Macrocytosis 3+ Sodium Level 143 Potassium Level 3.6 Chloride Level 108 Carbon Dioxide 28 Level Anion Gap 7 Blood Urea 39 H Nitrogen Creatinine 1.41 H Est Glomerular Filtrat Rate mL/min Glucose Level 167 Calcium Level 8.0 L Phosphorus Level 4.2 Magnesium Level 1.8 Bedside Glucose 189 Blood Gas Specimen Blood arterial Source Arterial Blood 01/29/2019 7:04:15 Date Drawn AM Arterial Blood pH 7.379 (Temp corrected) Arterial Blood 45.0 pCO2 (Temp correct) Arterial Blood pO2 113.7 H (Temp corrected) Arterial Blood 26.0 HCO3 Arterial Blood 0.6 Base Excess Arterial Blood 97.9 Oxygen Saturation Manuel Test ACCEPTAB Arterial Blood Gas Right Radial Puncture Site Arterial 0.3 Blood Carboxyhemog lobin Arterial Blood 0.5 Methemoglobin Blood Gas A-a O2 47.3 H Differential Oxyhemoglobin 97.1 Percent Blood Gas 37.0 Temperature Blood Gas Modality NASAL CANNULA FiO2 30.0 Blood Gas Notified TM Whom Blood Gas Notified 01/29/2019 7:35:10 Time AM Ammonia < 9 L Test 01/29/19 10:38 Bedside Glucose 171 Medications Medications Current Medications Lactulose (Enulose) 20 gm DAILY PRN PO CONSTIPATION; Start 01/17/19 at 18:17 Acetaminophen (Tylenol Tab) 650 mg Q4H PRN PO PAIN Last administered on 01/23/19 22:48; Admin Dose 650 MG; Start 01/17/19 at 18:17 Miscellaneous Information (Pending Santyl Order For Wound Care) This patient ramirez... PRN PRN XX WOUND CARE; Start 01/17/19 at 18:17 Albuterol/ Ipratropium (Duoneb) 3 ml Q2H RESP THERAPY PRN HHN SHORTNESS OF BREATH; Start 01/17/19 at 18:17 Bisacodyl (Dulcolax) 10 mg BID PRN PO CONSTIPATION; Start 01/17/19 at 18:17; Status Hold Folic Acid (Folic Acid) 1 mg DAILY PO Last administered on 01/29/19 09:59; Admin Dose 1 MG; Start 01/17/19 at 18:17 Latanoprost (Xalatan) 1 drop HS BOTH EYES Last administered on 01/28/19 21:36; Admin Dose 1 DROP; Start 01/17/19 at 18:17 Nitroglycerin (Nitroglycerin (Sl Tab) 0.4 Mg) 0.4 tab Q5M PRN SL CHEST PAIN; Start 01/17/19 at 18:17 Nystatin (Nystatin Powder) 1 applic BID TOP Last administered on 01/29/19 10:23; Admin Dose 1 APPLIC; Start 01/17/19 at 18:17 IV Flush (NS 3 ml) 3 ml PER PROTOCOL IV ; Start 01/17/19 at 18:17 Miscellaneous Information 1 ea NOTE XX ; Start 01/17/19 at 18:17 Glucose (Glutose) 15 gm Q15M PRN PO DECREASED GLUCOSE; Start 01/17/19 at 18:17 Glucose (Glutose) 22.5 gm Q15M PRN PO DECREASED GLUCOSE; Start 01/17/19 at 18:17 Dextrose (D50w Syringe) 25 ml Q15M PRN IV DECREASED GLUCOSE; Start 01/17/19 at 18:17 Dextrose (D50w Syringe) 50 ml Q15M PRN IV DECREASED GLUCOSE; Start 01/17/19 at 18:17 Glucagon (Glucagen) 1 mg Q15M PRN IM DECREASED GLUCOSE; Start 01/17/19 at 18:17 Glucose (Glutose) 15 gm Q15M PRN BUCCAL DECREASED GLUCOSE; Start 01/17/19 at 18:17 Zinc Sulfate (Zinc Sulfate) 220 mg DAILY PO Last administered on 01/29/19 09:59; Admin Dose 220 MG; Start 01/17/19 at 18:17 Ascorbic Acid (Vitamin C) 250 mg DAILY PO Last administered on 01/29/19 09:59; Admin Dose 250 MG; Start 01/17/19 at 18:17 Multi-Ingredient Ointment (Aquaphor Oint 52.5 Gm) 1 applic BID TOP Last administered on 01/29/19 10:24; Admin Dose 1 APPLIC; Start 01/17/19 at 18:17 Aspirin (Aspirin) 81 mg DAILY PO Last administered on 01/29/19 09:59; Admin Dose 81 MG; Start 01/17/19 at 18:17 Bisacodyl (Dulcolax Supp) 10 mg DAILY PRN [place] CONSTIPATION; Start 01/17/19 at 18:17 Zinc Acetate/ Diphenhydramine (Benadryl 2% Cr) 1 applic Q6H PRN TOP ITCHING Last administered on 01/26/19 07:54; Admin Dose 1 APPLIC; Start 01/19/19 at 16:37 Epoetin Dae-epbx (RETACRIT(non-esrd)) 20,000 unit Mo@1700 SC Last administered on 01/27/19 19:28; Admin Dose 20,000 UNIT; Start 01/20/19 at 17:00 IV Flush (NS 10 ml) 10 ml PRN PRN IV IV PROTOCOL; Start 01/20/19 at 14:30 Cyanocobalamin (Vitamin B12 Inj) 1,000 mcg Q7D IM ; Start 02/03/19 at 09:00 Dextrose 1,000 ml @ 40 mls/hr Q24H IV Last administered on 01/28/19 18:02; Admin Dose 40 MLS/HR; Start 01/26/19 at 13:00 Metoprolol Tartrate (Lopressor) 5 mg Q4H PRN IV HR>110 Hold SBP<100; Start 01/26/19 at 14:30 Furosemide (Lasix) 40 mg BID DIURETICS IV Last administered on 01/29/19 06:20; Admin Dose 40 MG; Start 01/27/19 at 18:00 Vancomycin HCl (Vanco Iv Per Pharmacy) VANCOMYCIN PER PHARMACY PER PROTOCOL XX ; Start 01/27/19 at 12:00 Norepinephrine 250 ml @ 1.875 mls/ hr TITRATE IV Last administered on 01/29/19 09:57; Admin Dose 18.75 MLS/HR; Start 01/27/19 at 12:30 Methylprednisolone Sodium Succinate (Solu-Medrol) 40 mg Q8 IV Last administered on 01/29/19 06:20; Admin Dose 40 MG; Start 01/27/19 at 14:00 Enoxaparin Sodium (Lovenox) 60 mg DAILY SC Last administered on 01/29/19 09:58; Admin Dose 60 MG; Start 01/28/19 at 09:00 Lorazepam (Ativan) 1 mg Q2 PRN IV SEIZURES Last administered on 01/28/19 19:29; Admin Dose 1 MG; Start 01/27/19 at 14:00 Aztreonam 50 ml @ 100 mls/hr Q12 IVPB Last administered on 01/29/19 10:53; Admin Dose 100 MLS/HR; Start 01/27/19 at 16:30 Metronidazole 100 ml @ 100 mls/hr Q8 IVPB Last administered on 01/29/19 06:20; Admin Dose 100 MLS/HR; Start 01/27/19 at 15:00 Vancomycin HCl 250 ml @ 125 mls/hr Q36H IVPB Last administered on 01/29/19 03:32; Admin Dose 125 MLS/HR; Start 01/29/19 at 03:00 Atorvastatin Calcium (Lipitor) 40 mg QHS NGT Last administered on 01/28/19 21:19; Admin Dose 40 MG; Start 01/28/19 at 21:00 Docusate Sodium (Colace Liquid Cup) 100 mg BID NGT ; Start 01/27/19 at 22:00; Status Hold Terazosin HCl (Hytrin) 10 mg HS NGT ; Start 01/28/19 at 21:00 Levetiracetam 100 ml @ 400 mls/hr Q12 IVPB Last administered on 01/29/19 10:11; Admin Dose 400 MLS/HR; Start 01/28/19 at 09:00 Levothyroxine Sodium (Synthroid) 125 mcg BEFORE BREAKFAST NGT Last administered on 01/29/19 09:58; Admin Dose 125 MCG; Start 01/28/19 at 07:00 Albuterol/ Ipratropium (Duoneb) 3 ml Q4H RESP THERAPY HHN Last administered on 01/29/19 08:37; Admin Dose 3 ML; Start 01/28/19 at 13:00 Ferrous Sulfate (Feosol Liquid Cup) 300 mg WITH MEALS GTB Last administered on 01/28/19 17:27; Admin Dose 300 MG; Start 01/28/19 at 11:30 Multivitamins (Multivitamin) 30 ml DAILY GTB Last administered on 01/29/19 09:59; Admin Dose 30 ML; Start 01/28/19 at 11:00 Lansoprazole (Prevacid) 30 mg DAILY@06 NGT Last administered on 01/29/19 06:20; Admin Dose 30 MG; Start 01/28/19 at 11:00 Diagnostic Test (Pha) (Accu-Chek) 1 ea Q4 XX Last administered on 01/29/19 10 :40; Admin Dose 1 EA; Start 01/28/19 at 13:00 Caspofungin 50 mg/ Sodium Chloride 250 ml @ 250 mls/hr Q24H IVPB ; Start 01/29/19 at 15:00 Nystatin/ Triamcinolone Acetonide (Mycolog Oint) 1 applic BID TOP Last administered on 01/29/19 10:24; Admin Dose 1 APPLIC; Start 01/28/19 at 22:30 Insulin Aspart (Novolog Insulin Pen) NOVOLOG *MILD* ALGORI... Q4 SC Last administered on 01/29/19at 10:40; Admin Dose 1 UNIT; Start 01/29/19 at 05:00 MARJORIE JAIN January 29, 2019 11:24
--- NOTE | 2019-01-29 11:40 | PN ---
Date/Time of Note Date/Time of Note DATE: 01/29/19 TIME: 11:36 Assessment/Plan VTE Prophylaxis Risk score (from [facility])>0 risk: 12 SCD applied (from [facility]): No SCD contraindicated: low risk/ambulating Pharmacological prophylaxis: NA/contraindicated Pharm contraindication: low risk/ambulating Lines/Catheters IV [facility]ter Type (from [facility] Central Line Central line still needed: Yes Urinary Cath still in place: Yes Reason Cath still needed: urinary retention Assessment/Plan Hospital Course Hospital Course # AMS likely due to stroke vs seizure, 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 Septic shock now on pressors likely secondary to pneumonia # Hypothermia ? sepsis #. Severe anemia #. Chronic renal failure likely secondary to sepsis, improved, normal creatinine #. Hypertension.currently hypotensive # Impending respiratory failure # Anasarca # Hyperlipidemia. # Hypothyroidism. # Bilateral groin cellulitis more likely associated with mateus, patches in groin and axilla bilaterally. skin peeling # History of rheumatoid arthritis with joint deformities. # Diabetes type 2. # Hx of CABGx2, carotid stent #. Peripheral vascular disease. #. Chronic a.fib, now on lovenox #. right arm edema # Neoplasm per CT abdomen. 4.3 cm cystic lesion along the pancreas body, enlarged since 10/10/2012 (previously 2.4 cm). 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 # Possible allergic skin reaction ? drug present since admission> improved Plan - iv ativan prn seizure, iv keppra, EEG with diffuse slowing - cw levophed 8 , hold bp meds - cw vancomycin/aztreonam/caspofngin - will check for TSH/ cortisol levels - pending cx neg so far - ? mri neg for acute stroke - cw D5 at 40 cc/hr, FS check - fu Neuro recs and neuro checks ? LP -on ASA, statin - NG -cw nebs/ solumedrol 40 iv q 8 - GI and DVT prophylaxsis -oncology consul dr Lorenzo aware:he said Ca 19-9 is negative indicating unlikely malignant. This may be a pseudocyst or a precancerous pancreatic lesion. It has been growing in size but patient is asymptomatic. EUS with biopsy is recommended and can either be done inpatient or outpatient setting. The patient at this time is unlikely a candidate for a Whipple surgery however. -skin care -Will check if dermatology comes inpatient Result Diagram: 01/29/19 0445 01/29/19 0445 Results 24hrs Laboratory Tests Test 01/28/19 13:19 01/28/19 17:24 01/28/19 21:18 01/29/19 01:15 Bedside Glucose 181 186 160 196 Test 01/29/19 04:45 01/29/19 04:53 01/29/19 07:00 01/29/19 09:17 White Blood Count 34.0 #H Red Blood Count 2.66 L Hemoglobin 7.8 L Hematocrit 24.8 L Mean Corpuscular 93.2 Volume Mean Corpuscular 29.3 Hemoglobin Mean Corpuscular 31.5 L Hemoglobin Concent Red Cell 18.8 H Distribution Width Platelet Count 231 Mean Platelet 11.0 H Volume Immature 2.500 H Granulocytes % Neutrophils % Segmented 66 Neutrophils % (Manual) Band Neutrophils % 24 H (Manual) Lymphocytes % Lymphocytes % 3 L (Manual) Monocytes % Monocytes % 5 (Manual) Eosinophils % Basophils % Metamyelocytes % 2 H (manual) Nucleated Red 0.1 H Blood Cells % Immature 0.850 H Granulocytes # Neutrophils # Neutrophils # 25.2 H (Manual) Band Neutrophils # 8.1 H Lymphocytes 1.0 (Manual) Lymphocytes # Monocytes # Monocytes # 1.7 H (Manual) Eosinophils # Basophils # Metamyelocytes # 0.6 H Nucleated Red Blood Cells # Platelet Estimate NORMAL Polychromasia 3+ Hypochromasia 1+ Poikilocytosis 3+ Anisocytosis 3+ Microcytosis 1+ Macrocytosis 3+ Sodium Level 143 Potassium Level 3.6 Chloride Level 108 Carbon Dioxide 28 Level Anion Gap 7 Blood Urea 39 H Nitrogen Creatinine 1.41 H Est Glomerular Filtrat Rate mL/min Glucose Level 167 Calcium Level 8.0 L Phosphorus Level 4.2 Magnesium Level 1.8 Bedside Glucose 189 Blood Gas Specimen Blood arterial Source Arterial Blood 01/29/2019 7:04:15 Date Drawn AM Arterial Blood pH 7.379 (Temp corrected) Arterial Blood 45.0 pCO2 (Temp correct) Arterial Blood pO2 113.7 H (Temp corrected) Arterial Blood 26.0 HCO3 Arterial Blood 0.6 Base Excess Arterial Blood 97.9 Oxygen Saturation Manuel Test ACCEPTAB Arterial Blood Gas Right Radial Puncture Site Arterial 0.3 Blood Carboxyhemog lobin Arterial Blood 0.5 Methemoglobin Blood Gas A-a O2 47.3 H Differential Oxyhemoglobin 97.1 Percent Blood Gas 37.0 Temperature Blood Gas Modality NASAL CANNULA FiO2 30.0 Blood Gas Notified TM Whom Blood Gas Notified 01/29/2019 7:35:10 Time AM Ammonia < 9 L Test 01/29/19 10:38 Bedside Glucose 171 Subjective 24 Hr Interval Summary Free Text/Dictation Patient is hypothermic Levo fed is down to 8 from 25 No fevers Open his eyes according to the daughter today Exam/Review of Systems Exam Vitals Vital Signs Date Temp Pulse Resp B/P (MAP) Pulse Ox O2 O2 Flow FiO2 Time Delivery Rate 01/29/19 115 26 100 Nasal 2.0 08:40 Cannula 01/29/19 126/77 06:30 (93) 01/29/19 98.0 04:00 01/27/19 30 14:25 Intake and Output 01/28/19 01/28/19 01/29/19 1515:00 23:00 07:00 IntakeIntake Total 1101.125 ml 992.48 ml 774.47 ml OutputOutput Total 440 ml 700 ml 610 ml BalanceBalance 661.125 ml 292.48 ml 164.47 ml Exam unresponsive, spontaneous purposeful movements ,some response to verbal or tactile stimulation . spontansously breathing rt pupil sluggish, left pupil sluggish Constitutional: frail Respiratory: diminished breath sounds Cardiovascular: irregular rhythm Gastrointestinal: soft Genitourinary - Male: other (rinaldi) Skin: diffuse skin rash hyperpigemented, sloughing of skin Results Results 24hrs Laboratory Tests Test 01/28/19 13:19 01/28/19 17:24 01/28/19 21:18 01/29/19 01:15 Bedside Glucose 181 186 160 196 Test 01/29/19 04:45 01/29/19 04:53 01/29/19 07:00 01/29/19 09:17 White Blood Count 34.0 #H Red Blood Count 2.66 L Hemoglobin 7.8 L Hematocrit 24.8 L Mean Corpuscular 93.2 Volume Mean Corpuscular 29.3 Hemoglobin Mean Corpuscular 31.5 L Hemoglobin Concent Red Cell 18.8 H Distribution Width Platelet Count 231 Mean Platelet 11.0 H Volume Immature 2.500 H Granulocytes % Neutrophils % Segmented 66 Neutrophils % (Manual) Band Neutrophils % 24 H (Manual) Lymphocytes % Lymphocytes % 3 L (Manual) Monocytes % Monocytes % 5 (Manual) Eosinophils % Basophils % Metamyelocytes % 2 H (manual) Nucleated Red 0.1 H Blood Cells % Immature 0.850 H Granulocytes # Neutrophils # Neutrophils # 25.2 H (Manual) Band Neutrophils # 8.1 H Lymphocytes 1.0 (Manual) Lymphocytes # Monocytes # Monocytes # 1.7 H (Manual) Eosinophils # Basophils # Metamyelocytes # 0.6 H Nucleated Red Blood Cells # Platelet Estimate NORMAL Polychromasia 3+ Hypochromasia 1+ Poikilocytosis 3+ Anisocytosis 3+ Microcytosis 1+ Macrocytosis 3+ Sodium Level 143 Potassium Level 3.6 Chloride Level 108 Carbon Dioxide 28 Level Anion Gap 7 Blood Urea 39 H Nitrogen Creatinine 1.41 H Est Glomerular Filtrat Rate mL/min Glucose Level 167 Calcium Level 8.0 L Phosphorus Level 4.2 Magnesium Level 1.8 Bedside Glucose 189 Blood Gas Specimen Blood arterial Source Arterial Blood 01/29/2019 7:04:15 Date Drawn AM Arterial Blood pH 7.379 (Temp corrected) Arterial Blood 45.0 pCO2 (Temp correct) Arterial Blood pO2 113.7 H (Temp corrected) Arterial Blood 26.0 HCO3 Arterial Blood 0.6 Base Excess Arterial Blood 97.9 Oxygen Saturation Manuel Test ACCEPTAB Arterial Blood Gas Right Radial Puncture Site Arterial 0.3 Blood Carboxyhemog lobin Arterial Blood 0.5 Methemoglobin Blood Gas A-a O2 47.3 H Differential Oxyhemoglobin 97.1 Percent Blood Gas 37.0 Temperature Blood Gas Modality NASAL CANNULA FiO2 30.0 Blood Gas Notified TM Whom Blood Gas Notified 01/29/2019 7:35:10 Time AM Ammonia < 9 L Test 01/29/19 10:38 Bedside Glucose 171 Medications Medication Current Medications Lactulose (Enulose) 20 gm DAILY PRN PO CONSTIPATION; Start 01/17/19 at 18:17 Acetaminophen (Tylenol Tab) 650 mg Q4H PRN PO PAIN Last administered on 01/23/19at 22:48; Admin Dose 650 MG; Start 01/17/19 at 18:17 Miscellaneous Information (Pending Santyl Order For Wound Care) This patient ramirez... PRN PRN XX WOUND CARE; Start 01/17/19 at 18:17 Albuterol/ Ipratropium (Duoneb) 3 ml Q2H RESP THERAPY PRN HHN SHORTNESS OF BREATH; Start 01/17/19 at 18:17 Bisacodyl (Dulcolax) 10 mg BID PRN PO CONSTIPATION; Start 01/17/19 at 18:17; Status Hold Folic Acid (Folic Acid) 1 mg DAILY PO Last administered on 01/29/19 09:59; Admin Dose 1 MG; Start 01/17/19 at 18:17 Latanoprost (Xalatan) 1 drop HS BOTH EYES Last administered on 01/28/19 21:36; Admin Dose 1 DROP; Start 01/17/19 at 18:17 Nitroglycerin (Nitroglycerin (Sl Tab) 0.4 Mg) 0.4 tab Q5M PRN SL CHEST PAIN; Start 01/17/19 at 18:17 Nystatin (Nystatin Powder) 1 applic BID TOP Last administered on 01/29/19 10:23; Admin Dose 1 APPLIC; Start 01/17/19 at 18:17 IV Flush (NS 3 ml) 3 ml PER PROTOCOL IV ; Start 01/17/19 at 18:17 Miscellaneous Information 1 ea NOTE XX ; Start 01/17/19 at 18:17 Glucose (Glutose) 15 gm Q15M PRN PO DECREASED GLUCOSE; Start 01/17/19 at 18:17 Glucose (Glutose) 22.5 gm Q15M PRN PO DECREASED GLUCOSE; Start 01/17/19 at 18:1 7 Dextrose (D50w Syringe) 25 ml Q15M PRN IV DECREASED GLUCOSE; Start 01/17/19 at 18:17 Dextrose (D50w Syringe) 50 ml Q15M PRN IV DECREASED GLUCOSE; Start 01/17/19 at 18:17 Glucagon (Glucagen) 1 mg Q15M PRN IM DECREASED GLUCOSE; Start 01/17/19 at 18:17 Glucose (Glutose) 15 gm Q15M PRN BUCCAL DECREASED GLUCOSE; Start 01/17/19 at 18:17 Zinc Sulfate (Zinc Sulfate) 220 mg DAILY PO Last administered on 01/29/19 09:59; Admin Dose 220 MG; Start 01/17/19 at 18:17 Ascorbic Acid (Vitamin C) 250 mg DAILY PO Last administered on 01/29/19 09:59; Admin Dose 250 MG; Start 01/17/19 at 18:17 Multi-Ingredient Ointment (Aquaphor Oint 52.5 Gm) 1 applic BID TOP Last administered on 01/29/19 10:24; Admin Dose 1 APPLIC; Start 01/17/19 at 18:17 Aspirin (Aspirin) 81 mg DAILY PO Last administered on 01/29/19 09:59; Admin Dose 81 MG; Start 01/17/19 at 18:17 Bisacodyl (Dulcolax Supp) 10 mg DAILY PRN [place] CONSTIPATION; Start 01/17/19 at 18:17 Zinc Acetate/ Diphenhydramine (Benadryl 2% Cr) 1 applic Q6H PRN TOP ITCHING Last administered on 01/26/19 07:54; Admin Dose 1 APPLIC; Start 01/19/19 at 16:37 Epoetin Dae-epbx (RETACRIT(non-esrd)) 20,000 unit Mo@1700 SC Last administered on 01/27/19 19:28; Admin Dose 20,000 UNIT; Start 01/20/19 at 17:00 IV Flush (NS 10 ml) 10 ml PRN PRN IV IV PROTOCOL; Start 01/20/19 at 14:30 Cyanocobalamin (Vitamin B12 Inj) 1,000 mcg Q7D IM ; Start 02/03/19 at 09:00 Dextrose 1,000 ml @ 40 mls/hr Q24H IV Last administered on 01/28/19 18:02; Admin Dose 40 MLS/HR; Start 01/26/19 at 13:00 Metoprolol Tartrate (Lopressor) 5 mg Q4H PRN IV HR>110 Hold SBP<100; Start 01/26/19 at 14:30 Furosemide (Lasix) 40 mg BID DIURETICS IV Last administered on 01/29/19 06:20; Admin Dose 40 MG; Start 01/27/19 at 18:00 Vancomycin HCl (Vanco Iv Per Pharmacy) VANCOMYCIN PER PHARMACY PER PROTOCOL XX ; Start 01/27/19 at 12:00 Norepinephrine 250 ml @ 1.875 mls/ hr TITRATE IV Last administered on 01/29/19 09:57; Admin Dose 18.75 MLS/HR; Start 01/27/19 at 12:30 Methylprednisolone Sodium Succinate (Solu-Medrol) 40 mg Q8 IV Last administered on 01/29/19 06:20; Admin Dose 40 MG; Start 01/27/19 at 14:00 Enoxaparin Sodium (Lovenox) 60 mg DAILY SC Last administered on 01/29/19 09:58; Admin Dose 60 MG; Start 01/28/19 at 09:00 Lorazepam (Ativan) 1 mg Q2 PRN IV SEIZURES Last administered on 01/28/19 19:29; Admin Dose 1 MG; Start 01/27/19 at 14:00 Aztreonam 50 ml @ 100 mls/hr Q12 IVPB Last administered on 01/29/19 10:53; Admin Dose 100 MLS/HR; Start 01/27/19 at 16:30 Metronidazole 100 ml @ 100 mls/hr Q8 IVPB Last administered on 01/29/19 06:20; Admin Dose 100 MLS/HR; Start 01/27/19 at 15:00 Vancomycin HCl 250 ml @ 125 mls/hr Q36H IVPB Last administered on 01/29/19 03:32; Admin Dose 125 MLS/HR; Start 01/29/19 at 03:00 Atorvastatin Calcium (Lipitor) 40 mg QHS NGT Last administered on 01/28/19 21:19; Admin Dose 40 MG; Start 01/28/19 at 21:00 Docusate Sodium (Colace Liquid Cup) 100 mg BID NGT ; Start 01/27/19 at 22:00; Status Hold Terazosin HCl (Hytrin) 10 mg HS NGT ; Start 01/28/19 at 21:00 Levetiracetam 100 ml @ 400 mls/hr Q12 IVPB Last administered on 01/29/19 10:11; Admin Dose 400 MLS/HR; Start 01/28/19 at 09:00 Levothyroxine Sodium (Synthroid) 125 mcg BEFORE BREAKFAST NGT Last administered on 01/29/19 09:58; Admin Dose 125 MCG; Start 01/28/19 at 07:00 Albuterol/ Ipratropium (Duoneb) 3 ml Q4H RESP THERAPY HHN Last administered on 01/29/19 08:37; Admin Dose 3 ML; Start 01/28/19 at 13:00 Ferrous Sulfate (Feosol Liquid Cup) 300 mg WITH MEALS GTB Last administered on 01/28/19 17:27; Admin Dose 300 MG; Start 01/28/19 at 11:30 Multivitamins (Multivitamin) 30 ml DAILY GTB Last administered on 01/29/19 09:59; Admin Dose 30 ML; Start 01/28/19 at 11:00 Lansoprazole (Prevacid) 30 mg DAILY@06 NGT Last administered on 01/29/19 06:20; Admin Dose 30 MG; Start 01/28/19 at 11:00 Diagnostic Test (Pha) (Accu-Chek) 1 ea Q4 XX Last administered on 01/29/19 10:40; Admin Dose 1 EA; Start 01/28/19 at 13:00 Caspofungin 50 mg/ Sodium Chloride 250 ml @ 250 mls/hr Q24H IVPB ; Start 01/29/19 at 15:00 Nystatin/ Triamcinolone Acetonide (Mycolog Oint) 1 applic BID TOP Last administered on 01/29/19 10:24; Admin Dose 1 APPLIC; Start 01/28/19 at 22:30 Insulin Aspart (Novolog Insulin Pen) NOVOLOG *MILD* ALGORI... Q4 SC Last administered on 01/29/19 10:40; Admin Dose 1 UNIT; Start 01/29/19 at 05:00 IVAN AKHTAR MD January 29, 2019 11:40
[2019-01-29] MEDS ORDERED: DIGOXIN 500 MCG INJ IV ONE (12:30)
--- NOTE | 2019-01-29 13:32 | CONS ---
Assessment/Plan Assessment/Plan Hospital Course (Demo Recall) No acute events overnight patient is lethargic in no distress no fevers he is actually hypothermic and is on bear hugger WBC 34 platelets 231 neutrophils 66 BUN 39 creatinine 1.41 Sputum culture growing gram-negative rods Chest x-ray this morning revealed increased bilateral interstitial and alveolar infiltrates concerning for edema multifocal pneumonia or pneumonitis. Antimicrobials: Vancomycin, aztreonam, Flagyl Cancidas Indwelling: Left subclavian triple-lumen catheter, Wade catheter, NG tube Allergy: Penicillin, sulfa Physical examination: Obese well-developed chronically ill-appearing - Martiniquais man who is lethargic, in no distress. Head atraumatic normocephalic sclera nonicteric. Neck is supple chest rise symmetrical breath sounds diminished bases. Heart: S1-S2. Abdomen obese soft bowel sounds present extremities without cyanosis, bilateral edema Assessment: 1. Severe sepsis with shock 2. Acute encephalopathy 3. Seizures 4. Healthcare acquired, possible aspiration pneumonia 5. Coronary artery disease/history of CABG 6. Advanced rheumatoid arthritis 5. Chronic atrial fibrillation 6. Diabetes 7. BPH 9. Acute on chronic anemia===> s/p EGD/colonoscopy 01/09/19 10. Status post right epididymitis 11. Pancreatic lesion per CT, unlikely neoplasm per oncology notes 12. History of CVA Plan: Remains unstable, continue present care antibiotics. Prognosis poor Discussed with daughter at bedside Consultation Date/Type/Reason Admit Date/Time Jan 17, 2019 at 15:58 Initial Consult Date 01/18/19 Type of Consult id Requesting Provider: IVAN AKHTAR MD Date/Time of Note DATE: 01/29/19 TIME: 13:31 Exam/Review of Systems Exam Vitals Vital Signs Date Temp Pulse Resp B/P (MAP) Pulse Ox O2 O2 Flow FiO2 Time Delivery Rate 01/29/19 93.7 96 19 96/70 (79) 97 Nasal 2.0 12:00 Cannula 01/27/19 30 14:25 Intake and Output 01/28/19 01/28/19 01/29/19 1515:00 23:00 07:00 IntakeIntake Total 1101.125 ml 992.48 ml 774.47 ml OutputOutput Total 440 ml 700 ml 610 ml BalanceBalance 661.125 ml 292.48 ml 164.47 ml Results Result Diagram: 01/29/19 0445 01/29/19 0445 Results 24hrs Laboratory Tests Test 01/28/19 17:24 01/28/19 21:18 01/29/19 01:15 01/29/19 04:45 Bedside Glucose 186 160 196 White Blood Count 34.0 #H Red Blood Count 2.66 L Hemoglobin 7.8 L Hematocrit 24.8 L Mean Corpuscular 93.2 Volume Mean Corpuscular 29.3 Hemoglobin Mean Corpuscular 31.5 L Hemoglobin Concent Red Cell 18.8 H Distribution Width Platelet Count 231 Mean Platelet 11.0 H Volume Immature 2.500 H Granulocytes % Neutrophils % Segmented 66 Neutrophils % (Manual) Band Neutrophils % 24 H (Manual) Lymphocytes % Lymphocytes % 3 L (Manual) Monocytes % Monocytes % 5 (Manual) Eosinophils % Basophils % Metamyelocytes % 2 H (manual) Nucleated Red 0.1 H Blood Cells % Immature 0.850 H Granulocytes # Neutrophils # Neutrophils # 25.2 H (Manual) Band Neutrophils # 8.1 H Lymphocytes 1.0 (Manual) Lymphocytes # Monocytes # Monocytes # 1.7 H (Manual) Eosinophils # Basophils # Metamyelocytes # 0.6 H Nucleated Red Blood Cells # Platelet Estimate NORMAL Polychromasia 3+ Hypochromasia 1+ Poikilocytosis 3+ Anisocytosis 3+ Microcytosis 1+ Macrocytosis 3+ Sodium Level 143 Potassium Level 3.6 Chloride Level 108 Carbon Dioxide 28 Level Anion Gap 7 Blood Urea 39 H Nitrogen Creatinine 1.41 H Est Glomerular Filtrat Rate mL/min Glucose Level 167 Calcium Level 8.0 L Phosphorus Level 4.2 Magnesium Level 1.8 Test 01/29/19 04:53 01/29/19 07:00 01/29/19 09:17 01/29/19 10:38 Bedside Glucose 189 171 Blood Gas Specimen Blood arterial Source Arterial Blood 01/29/2019 7:04:15 Date Drawn AM Arterial Blood pH 7.379 (Temp corrected) Arterial Blood 45.0 pCO2 (Temp correct) Arterial Blood pO2 113.7 H (Temp corrected) Arterial Blood 26.0 HCO3 Arterial Blood 0.6 Base Excess Arterial Blood 97.9 Oxygen Saturation Manuel Test ACCEPTAB Arterial Blood Gas Right Radial Puncture Site Arterial 0.3 Blood Carboxyhemog lobin Arterial Blood 0.5 Methemoglobin Blood Gas A-a O2 47.3 H Differential Oxyhemoglobin 97.1 Percent Blood Gas 37.0 Temperature Blood Gas Modality NASAL CANNULA FiO2 30.0 Blood Gas Notified TM Whom Blood Gas Notified 01/29/2019 7:35:10 Time AM Ammonia < 9 L Medications Medication Current Medications Lactulose (Enulose) 20 gm DAILY PRN PO CONSTIPATION; Start 01/17/19 at 18:17 Acetaminophen (Tylenol Tab) 650 mg Q4H PRN PO PAIN Last administered on 01/23/19 22:48; Admin Dose 650 MG; Start 01/17/19 at 18:17 Miscellaneous Information (Pending [facility] Order For Wound Care) This patient ramirez... PRN PRN XX WOUND CARE; Start 01/17/19 at 18:17 Albuterol/ Ipratropium (Duoneb) 3 ml Q2H RESP THERAPY PRN HHN SHORTNESS OF BREATH; Start 01/17/19 at 18:17 Bisacodyl (Dulcolax) 10 mg BID PRN PO CONSTIPATION; Start 01/17/19 at 18:17; Status Hold Folic Acid (Folic Acid) 1 mg DAILY PO Last administered on 01/29/19at 09:59; A dmin Dose 1 MG; Start 01/17/19 at 18:17 Latanoprost (Xalatan) 1 drop HS BOTH EYES Last administered on 01/28/19at 21:36; Admin Dose 1 DROP; Start 01/17/19 at 18:17 Nitroglycerin (Nitroglycerin (Sl Tab) 0.4 Mg) 0.4 tab Q5M PRN SL CHEST PAIN; Start 01/17/19 at 18:17 Nystatin (Nystatin Powder) 1 applic BID TOP Last administered on 01/29/19at 10:23; Admin Dose 1 APPLIC; Start 01/17/19 at 18:17 IV Flush (NS 3 ml) 3 ml PER PROTOCOL IV ; Start 01/17/19 at 18:17 Miscellaneous Information 1 ea NOTE XX ; Start 01/17/19 at 18:17 Glucose (Glutose) 15 gm Q15M PRN PO DECREASED GLUCOSE; Start 01/17/19 at 18:17 Glucose (Glutose) 22.5 gm Q15M PRN PO DECREASED GLUCOSE; Start 01/17/19 at 18:17 Dextrose (D50w Syringe) 25 ml Q15M PRN IV DECREASED GLUCOSE; Start 01/17/19 at 18:17 Dextrose (D50w Syringe) 50 ml Q15M PRN IV DECREASED GLUCOSE; Start 01/17/19 at 18:17 Glucagon (Glucagen) 1 mg Q15M PRN IM DECREASED GLUCOSE; Start 01/17/19 at 18:17 Glucose (Glutose) 15 gm Q15M PRN BUCCAL DECREASED GLUCOSE; Start 01/17/19 at 18:17 Zinc Sulfate (Zinc Sulfate) 220 mg DAILY PO Last administered on 01/29/19 09: 59; Admin Dose 220 MG; Start 01/17/19 at 18:17 Ascorbic Acid (Vitamin C) 250 mg DAILY PO Last administered on 01/29/19 09:59; Admin Dose 250 MG; Start 01/17/19 at 18:17 Multi-Ingredient Ointment (Aquaphor Oint 52.5 Gm) 1 applic BID TOP Last administered on 01/29/19 10:24; Admin Dose 1 APPLIC; Start 01/17/19 at 18:17 Aspirin (Aspirin) 81 mg DAILY PO Last administered on 01/29/19 09:59; Admin Dos e 81 MG; Start 01/17/19 at 18:17 Bisacodyl (Dulcolax Supp) 10 mg DAILY PRN [place] CONSTIPATION; Start 01/17/19 at 18:17 Zinc Acetate/ Diphenhydramine (Benadryl 2% Cr) 1 applic Q6H PRN TOP ITCHING Last administered on 01/26/19 07:54; Admin Dose 1 APPLIC; Start 01/19/19 at 16:37 Epoetin Dae-epbx (RETACRIT(non-esrd)) 20,000 unit Mo@1700 SC Last administered on 01/27/19 19:28; Admin Dose 20,000 UNIT; Start 01/20/19 at 17:00 IV Flush (NS 10 ml) 10 ml PRN PRN IV IV PROTOCOL; Start 01/20/19 at 14:30 Cyanocobalamin (Vitamin B12 Inj) 1,000 mcg Q7D IM ; Start 02/03/19 at 09:00 Dextrose 1,000 ml @ 40 mls/hr Q24H IV Last administered on 01/28/19 18:02; Admin Dose 40 MLS/HR; Start 01/26/19 at 13:00 Metoprolol Tartrate (Lopressor) 5 mg Q4H PRN IV HR>110 Hold SBP<100; Start 01/26/19 at 14:30 Furosemide (Lasix) 40 mg BID DIURETICS IV Last administered on 01/29/19 06:20; Admin Dose 40 MG; Start 01/27/19 at 18:00 Vancomycin HCl (Vanco Iv Per Pharmacy) VANCOMYCIN PER PHARMACY PER PROTOCOL XX ; Start 01/27/19 at 12:00 Norepinephrine 250 ml @ 1.875 mls/ hr TITRATE IV Last administered on 01/29/19 09:57; Admin Dose 18.75 MLS/HR; Start 01/27/19 at 12:30 Methylprednisolone Sodium Succinate (Solu-Medrol) 40 mg Q8 IV Last administered on 01/29/19 06:20; Admin Dose 40 MG; Start 01/27/19 at 14:00 Enoxaparin Sodium (Lovenox) 60 mg DAILY SC Last administered on 01/29/19 09:58; Admin Dose 60 MG; Start 01/28/19 at 09:00 Lorazepam (Ativan) 1 mg Q2 PRN IV SEIZURES Last administered on 01/28/19 19:29; Admin Dose 1 MG; Start 01/27/19 at 14:00 Aztreonam 50 ml @ 100 mls/hr Q12 IVPB Last administered on 01/29/19 10:53; Admin Dose 100 MLS/HR; Start 01/27/19 at 16:30 Metronidazole 100 ml @ 100 mls/hr Q8 IVPB Last administered on 01/29/19 06:20; Admin Dose 100 MLS/HR; Start 01/27/19 at 15:00 Vancomycin HCl 250 ml @ 125 mls/hr Q36H IVPB Last administered on 01/29/19 03:32; Admin Dose 125 MLS/HR; Start 01/29/19 at 03:00 Atorvastatin Calcium (Lipitor) 40 mg QHS NGT Last administered on 01/28/19 21:19; Admin Dose 40 MG; Start 01/28/19 at 21:00 Docusate Sodium (Colace Liquid Cup) 100 mg BID NGT ; Start 01/27/19 at 22:00; Status Hold Terazosin HCl (Hytrin) 10 mg HS NGT ; Start 01/28/19 at 21:00 Levetiracetam 100 ml @ 400 mls/hr Q12 IVPB Last administered on 01/29/19 10:11; Admin Dose 400 MLS/HR; Start 01/28/19 at 09:00 Levothyroxine Sodium (Synthroid) 125 mcg BEFORE BREAKFAST NGT Last administered on 01/29/19 09:58; Admin Dose 125 MCG; Start 01/28/19 at 07:00 Ferrous Sulfate (Feosol Liquid Cup) 300 mg WITH MEALS GTB Last administered on 01/28/19 17:27; Admin Dose 300 MG; Start 01/28/19 at 11:30 Multivitamins (Multivitamin) 30 ml DAILY GTB Last administered on 01/29/19 09:59; Admin Dose 30 ML; Start 01/28/19 at 11:00 Lansoprazole (Prevacid) 30 mg DAILY@06 NGT Last administered on 01/29/19 06:20; Admin Dose 30 MG; Start 01/28/19 at 11:00 Diagnostic Test (Pha) (Accu-Chek) 1 ea Q4 XX Last administered on 01/29/19 10:40; Admin Dose 1 EA; Start 01/28/19 at 13:00 Caspofungin 50 mg/ Sodium Chloride 250 ml @ 250 mls/hr Q24H IVPB ; Start 01/29/19 at 15:00 Nystatin/ Triamcinolone Acetonide (Mycolog Oint) 1 applic BID TOP Last administered on 01/29/19 10:24; Admin Dose 1 APPLIC; Start 01/28/19 at 22:30 Insulin Aspart (Novolog Insulin Pen) NOVOLOG *MILD* ALGORI... Q4 SC Last administered on 01/29/19 10:40; Admin Dose 1 UNIT; Start 01/29/19 at 05:00 Albuterol/ Ipratropium (Duoneb) 3 ml Q6HWA RESP THERAPY HHN ; Start 01/29/19 at 14:00 LUCIAN HARKINS NP January 29, 2019 13:32
--- NOTE | 2019-01-29 13:57 | CONS ---
Assessment/Plan Assessment/Plan Hospital Course 88 yo M with multiple comorbidities who initially presented for evaluation of hiccups. He was noted to become acutely altered... for which neurology is consulted. He was noted to develop ams on 01/21 around 7pm and noted on 01/22 to be unresponsive... prompting a code stroke activation. The clinical picture suggests an acute toxic-metabolic encephalopathy.. Meningoencephalitis is, though, not yet excluded. MRI brain is without acute ischemia, though notable for chronic infarcts. 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 On 01/27/19, the pt was noted to have recurrent spells concerning for seizure, in the context of hypotension and hypothermia --> Tx to ICU EEG is without ongoing epileptiform activity P: Agree with LP for CSF eval when medically able Cont Keppra 500 BID for now Ativan IV PRN prolonged seizure (> 5 min) Agree w/ ASA/Lipitor daily pending the above Limit sedating medications where possible Other medical management per primary Will follow clinically Consultation Date/Type/Reason Admit Date/Time Jan 17, 2019 at 15:58 Type of Consult Neurology Reason for Consultation ams; eval for stroke Requesting Provider: IVAN AKHTAR MD Date/Time of Note DATE: 01/29/19 TIME: 13:56 24 HR Interval Summary Free Text/Dictation Continues critical care. Levophed gtt decreased today. Having intermittent episodes of hypothermia. Subjective hx not possible: pt non-verbal, pt critical Exam Vital Signs Vitals Vital Signs Date Temp Pulse Resp B/P (MAP) Pulse Ox O2 O2 Flow FiO2 Time Delivery Rate 01/29/19 93.7 96 19 96/70 (79) 97 Nasal 2.0 12:00 Cannula 01/27/19 30 14:25 Intake and Output 01/28/19 01/28/19 01/29/19 1515:00 23:00 07:00 IntakeIntake Total 1101.125 ml 992.48 ml 774.47 ml OutputOutput Total 440 ml 700 ml 610 ml BalanceBalance 661.125 ml 292.48 ml 164.47 ml Exam PE: Gen Appearance: No Apparent Distress HEENT: Normocephalic; on nasal cannula Cardiovascular: Regular rate Abdomen: Soft Extremities: Dry, skin peeling NE: The patient was lethargic and incomprehensibly verbal. Opens eyes to stimulus, moans occasionally. Unable to track or follow commands. Cranial nerve examination was limited by mental status. Pupils were equal and reactive to light. There was no afferent pupillary defect. Funduscopic examination was limited. Face was grossly symmetric. Tone was normal. Muscle bulk was normal. I did not see fasciculations. The patient localized his UE to noxious stimuli; withdrew his lowers. Coordination and gait testing was limited by mental status. Arm and leg reflexes were within normal limits and symmetric. Gray's sign was absent. Plantar responses were flexor. NEGRA CORONA NP January 29, 2019 13:57
[2019-01-29] MEDS: CASPOFUNGIN 50 MG in SOD CHLORIDE 0.9% 250 ML IVPB SCH (16:59)
[2019-01-29] MEDS: TERAZOSIN 5 MG CAP NGT SCH (20:58)
[2019-01-29] MEDS: DEXTROSE 10% 1,000 ML IV SCH (20:58)
[2019-01-29] MEDS: LATANOPROST 0.005% 2.5 ML OPH BOTH EYES SCH (20:58)
[2019-01-29] MEDS: ATORVASTATIN 40 MG TAB NGT SCH (20:59)
[2019-01-30] VITALS (87 sets, daily range): BP systolic 81–164; BP diastolic 36–140; PULSE 64–91; RESP 14–34
[2019-01-30] MEDS: ACCU-CHEK XX SCH ×6 (00:44→21:34)
[2019-01-30] MEDS: INSULIN ASPART [NOVOLOG] 3 ML PEN SC SCH ×6 (00:46→21:40)
[2019-01-30] MEDS: NORepinephrine 8MG/250 ML (PMX 250 ML IV SCH (01:30)
[2019-01-30] MEDS: FUROSEMIDE 40 MG INJ IV SCH ×2 (05:04→18:09)
[2019-01-30] MEDS: metroNIDAZOLE 500 MG/NS (PMX) 100 ML IVPB SCH ×3 (05:05→21:29)
[2019-01-30] MEDS: LANSOPRAZOLE 30 MG CAP NGT SCH (05:05)
[2019-01-30] MEDS: METHYLPREDNISOLONE 40 MG INJ IV SCH ×3 (05:05→21:28)
[2019-01-30] MEDS: LEVOTHYROXINE 125 MCG TAB NGT SCH (06:10)
[2019-01-30] MEDS: FERROUS SULFATE 60 MG/ML 5ML CUP GTB SCH ×3 (08:21→18:09)
[2019-01-30] MEDS: ENOXAPARIN 60 MG/0.6 ML SYG SC SCH (08:29)
[2019-01-30] MEDS: ZINC SULFATE 220 MG CAP PO SCH (08:35)
[2019-01-30] MEDS: FOLIC ACID 1 MG TAB PO SCH (08:35)
[2019-01-30] MEDS: MULTIVITAMINS 30 ML CUP GTB SCH (08:35)
[2019-01-30] MEDS: ASPIRIN 81 MG TAB PO SCH (08:35)
[2019-01-30] MEDS: ASCORBIC ACID 250 MG TAB PO SCH (08:35)
[2019-01-30] MEDS: LEVETIRACETAM 500 MG (PMX) 100 ML IVPB SCH ×2 (08:38→21:31)
[2019-01-30] MEDS: AZTREONAM 1 GM/NS (PMX) 50 ML IVPB SCH ×2 (09:02→21:31)
[2019-01-30] MEDS: AQUAPHOR 52.5 GM OINT TOP SCH ×2 (09:17→21:29)
[2019-01-30] MEDS: BALSAM PERU/CASTOR OIL 60 GM TUBE TOP SCH ×2 (09:17→21:29)
[2019-01-30] MEDS: NYSTATIN/TRIAMCINOLONE 15 GM OINT TOP SCH ×2 (09:17→21:29)
[2019-01-30] MEDS: NYSTATIN 30 GM POWDER BTL TOP SCH ×2 (09:17→21:30)
--- NOTE | 2019-01-30 09:29 | CONS ---
Assessment/Plan Assessment/Plan Hospital Course (Demo Recall) 88 yo male with multiple medical problems including DM, CRF, RA, PVD and chronic afib on Eliquis who presented to [facility] 01/05/19 with severe normocytic anemia and Hg ~7. 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 # Anemia-normocytic -Hg stable at 7.0. -Multifactorial at this time due to iron deficiency, vitamin b12 deficiency and also likely anemia of chronic kidney disease and inflammation. Elevated Methylmalonic acid level noted -Patient still has low iron level even though ferritin is elevated. Ferritin likely elevated due to acute phase reactant. pt is now s/p IV iron. Pt is s/p EGD and colonoscopy by Dr Frost 01/09/19 which didn't find an obvious GI etiology to explain anemia. AVM or a small lesion could be missed due to poor prep. Pt likely needs capsule endoscopy -continue vitamin b12 weekly as vitamin b12 was low normal and methylmalonic acid was elevated. Continue folate as well. -No evidence of hemolysis at this time. -Transfuse to keep Hgb > 7. 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 -This may be a pseudocyst or a precancerous pancreatic lesion. -It has been growing in size but patient is asymptomatic. EUS with biopsy is recommended and can either be done inpatient or outpatient setting. -The patient at this time is unlikely a candidate for a whipple surgery however. Thank you to Dr. Alatorre for allowing [facility] to participate in the care of this patient. A total of 40 minutes was spent in consultation with this patient and all his questions were answered. Consultation Date/Type/Reason Admit Date/Time Jan 17, 2019 at 15:58 Initial Consult Date 01/18/19 Type of Consult hematology Reason for Consultation anemia Requesting Provider: IVAN AKHTAR MD Date/Time of Note DATE: 01/30/19 TIME: 09:26 24 HR Interval Summary Free Text/Dictation no seizures overnight Exam/Review of Systems Exam Vitals Vital Signs Date Temp Pulse Resp B/P (MAP) Pulse Ox O2 O2 Flow FiO2 Time Delivery Rate 01/30/19 82 08:00 01/30/19 26 113/66 99 Nasal 07:00 (82) Cannula 01/30/19 2.0 06:10 01/30/19 96.0 03:30 01/27/19 30 14:25 Intake and Output 01/29/19 01/29/19 01/30/19 1515:00 23:00 07:00 IntakeIntake Total 510.0000 ml 785.00 ml 1060.00 ml OutputOutput Total 805 ml 473 ml 570 ml BalanceBalance -295.0000 ml 312.00 ml 490.00 ml Constitutional: alert, distress, frail Psych: depression Head: normocephalic Eyes: nl conjunctiva ENMT: nl external ears & nose Neck: supple Respiratory: clear to auscultation Cardiovascular: regular rate and rhythm Gastrointestinal: soft Musculoskeletal: nl extremities to inspection Extremities: normal pulses Results Result Diagram: 01/30/1941901/30/19419 Results 24hrs Laboratory Tests Test 01/29/19 10:38 01/29/19 13:53 01/29/19 18:04 01/29/19 21:00 Bedside Glucose 171 179 147 163 Test 01/30/19 00:44 01/30/19 04:20 01/30/19 04:36 01/30/19 08:29 Bedside Glucose 165 167 143 White Blood Count 36.5 H Red Blood Count 2.37 L Hemoglobin 7.0 L Hematocrit 21.4 L Mean Corpuscular Volume 90.3 Mean Corpuscular 29.5 Hemoglobin Mean Corpuscular 32.7 Hemoglobin Concent Red Cell Distribution 18.9 H Width Platelet Count 209 Mean Platelet Volume 11.0 H Immature Granulocytes % 2.900 H Neutrophils % Segmented Neutrophils 79 H % (Manual) Band Neutrophils % 18 H (Manual) Lymphocytes % Monocytes % Monocytes % (Manual) 2 Eosinophils % Basophils % Myelocytes % (Manual) 1 H Nucleated Red Blood 4 H Cells % Immature Granulocytes # 1.060 H Neutrophils # Neutrophils # (Manual) 31.2 H Band Neutrophils # 6.5 H Lymphocytes # Monocytes # Monocytes # (Manual) 0.7 Eosinophils # Basophils # Myelocytes # 0.3 H Nucleated Red Blood Cells # Platelet Estimate NORMAL Polychromasia 3+ Hypochromasia 1+ Poikilocytosis 3+ Anisocytosis 2+ Macrocytosis 2+ Target Cells 1+ Ovalocytes 1+ Sodium Level 144 Potassium Level 3.4 L Chloride Level 109 Carbon Dioxide Level 27 Anion Gap 8 Blood Urea Nitrogen 42 H Creatinine 1.43 H Est Glomerular Filtrat Rate mL/min Glucose Level 143 Calcium Level 7.9 L Total Bilirubin 0.2 Direct Bilirubin 0.00 Indirect Bilirubin 0.2 Aspartate Amino 17 Transf (AST/SGOT) Alanine 28 Aminotransferase (ALT/SG PT) Alkaline Phosphatase 77 Total Protein 4.3 L Albumin 2.0 L Globulin 2.30 Albumin/Globulin Ratio 0.86 Thyroid Stimulating 1.080 Hormone (TSH) Random Cortisol 16.2 Medications Medication Current Medications Lactulose (Enulose) 20 gm DAILY PRN PO CONSTIPATION; Start 01/17/19 at 18:17 Acetaminophen (Tylenol Tab) 650 mg Q4H PRN PO PAIN Last administered on 01/23/19at 22:48; Admin Dose 650 MG; Start 01/17/19 at 18:17 Miscellaneous Information (Pending [facility] Order For Wound Care) This patient ramirez... PRN PRN XX WOUND CARE; Start 01/17/19 at 18:17 Albuterol/ Ipratropium (Duoneb) 3 ml Q2H RESP THERAPY PRN HHN SHORTNESS OF BREATH; Start 01/17/19 at 18:17 Bisacodyl (Dulcolax) 10 mg BID PRN PO CONSTIPATION; Start 01/17/19 at 18:17; Status Hold Folic Acid (Folic Acid) 1 mg DAILY PO Last administered on 01/30/19at 08:35; Admin Dose 1 MG; Start 01/17/19 at 18:17 Latanoprost (Xalatan) 1 drop HS BOTH EYES Last administered on 01/29/19at 20:58; Admin Dose 1 DROP; Start 01/17/19 at 18:17 Nitroglycerin (Nitroglycerin (Sl Tab) 0.4 Mg) 0.4 tab Q5M PRN SL CHEST PAIN; Start 01/17/19 at 18:17 Nystatin (Nystatin Powder) 1 applic BID TOP Last administered on 01/30/19 09:17; Admin Dose 1 APPLIC; Start 01/17/19 at 18:17 IV Flush (NS 3 ml) 3 ml PER PROTOCOL IV ; Start 01/17/19 at 18:17 Miscellaneous Information 1 ea NOTE XX ; Start 01/17/19 at 18:17 Glucose (Glutose) 15 gm Q15M PRN PO DECREASED GLUCOSE; Start 01/17/19 at 18:17 Glucose (Glutose) 22.5 gm Q15M PRN PO DECREASED GLUCOSE; Start 01/17/19 at 18:17 Dextrose (D50w Syringe) 25 ml Q15M PRN IV DECREASED GLUCOSE; Start 01/17/19 at 18:17 Dextrose (D50w Syringe) 50 ml Q15M PRN IV DECREASED GLUCOSE; Start 01/17/19 at 18:17 Glucagon (Glucagen) 1 mg Q15M PRN IM DECREASED GLUCOSE; Start 01/17/19 at 18:17 Glucose (Glutose) 15 gm Q15M PRN BUCCAL DECREASED GLUCOSE; Start 01/17/19 at 18:17 Zinc Sulfate (Zinc Sulfate) 220 mg DAILY PO Last administered on 01/30/19 08:35; Admin Dose 220 MG; Start 01/17/19 at 18:17 Ascorbic Acid (Vitamin C) 250 mg DAILY PO Last administered on 01/30/19 08:35; Admin Dose 250 MG; Start 01/17/19 at 18:17 Multi-Ingredient Ointment (Aquaphor Oint 52.5 Gm) 1 applic BID TOP Last administered on 01/30/19 09:17; Admin Dose 1 APPLIC; Start 01/17/19 at 18:17 Aspirin (Aspirin) 81 mg DAILY PO Last administered on 01/30/19 08:35; Admin Dose 81 MG; Start 01/17/19 at 18:17 Bisacodyl (Dulcolax Supp) 10 mg DAILY PRN [place] CONSTIPATION; Start 01/17/19 at 18:17 Zinc Acetate/ Diphenhydramine (Benadryl 2% Cr) 1 applic Q6H PRN TOP ITCHING Last administered on 01/26/19at 07:54; Admin Dose 1 APPLIC; Start 01/19/19 at 16:37 Epoetin Dae-epbx (RETACRIT(non-esrd)) 20,000 unit Mo@1700 SC Last administered on 01/27/19 19:28; Admin Dose 20,000 UNIT; Start 01/20/19 at 17:00 IV Flush (NS 10 ml) 10 ml PRN PRN IV IV PROTOCOL; Start 01/20/19 at 14:30 Cyanocobalamin (Vitamin B12 Inj) 1,000 mcg Q7D IM ; Start 02/03/19 at 09:00 Dextrose 1,000 ml @ 40 mls/hr Q24H IV Last administered on 01/29/19 20:58; Admin Dose 40 MLS/HR; Start 01/26/19 at 13:00 Metoprolol Tartrate (Lopressor) 5 mg Q4H PRN IV HR>110 Hold SBP<100; Start 01/26/19 at 14:30 Furosemide (Lasix) 40 mg BID DIURETICS IV Last administered on 01/30/19 05:04; Admin Dose 40 MG; Start 01/27/19 at 18:00 Vancomycin HCl (Vanco Iv Per Pharmacy) VANCOMYCIN PER PHARMACY PER PROTOCOL XX ; Start 01/27/19 at 12:00 Norepinephrine 250 ml @ 1.875 mls/ hr TITRATE IV Last administered on 01/30/19 01:30; Admin Dose 11.25 MLS/HR; Start 01/27/19 at 12:30 Methylprednisolone Sodium Succinate (Solu-Medrol) 40 mg Q8 IV Last administered on 01/30/19 05:05; Admin Dose 40 MG; Start 01/27/19 at 14:00 Enoxaparin Sodium (Lovenox) 60 mg DAILY SC Last administered on 01/30/19 08:29; Admin Dose 60 MG; Start 01/28/19 at 09:00 Lorazepam (Ativan) 1 mg Q2 PRN IV SEIZURES Last administered on 01/28/19 19:29; Admin Dose 1 MG; Start 01/27/19 at 14:00 Aztreonam 50 ml @ 100 mls/hr Q12 IVPB Last administered on 01/30/19 09:02; Admin Dose 100 MLS/HR; Start 01/27/19 at 16:30 Metronidazole 100 ml @ 100 mls/hr Q8 IVPB Last administered on 01/30/19 05:05; Admin Dose 100 MLS/HR; Start 01/27/19 at 15:00 Vancomycin HCl 250 ml @ 125 mls/hr Q36H IVPB Last administered on 01/29/19 03:32; Admin Dose 125 MLS/HR; Start 01/29/19 at 03:00 Atorvastatin Calcium (Lipitor) 40 mg QHS NGT Last administered on 01/29/19 20:59; Admin Dose 40 MG; Start 01/28/19 at 21:00 Docusate Sodium (Colace Liquid Cup) 100 mg BID NGT ; Start 01/27/19 at 22:00; Status Hold Terazosin HCl (Hytrin) 10 mg HS NGT ; Start 01/28/19 at 21:00 Levetiracetam 100 ml @ 400 mls/hr Q12 IVPB Last administered on 01/30/19 08:38; Admin Dose 400 MLS/HR; Start 01/28/19 at 09:00 Levothyroxine Sodium (Synthroid) 125 mcg BEFORE BREAKFAST NGT Last administered on 01/30/19 06:10; Admin Dose 125 MCG; Start 01/28/19 at 07:00 Ferrous Sulfate (Feosol Liquid Cup) 300 mg WITH MEALS GTB Last administered on 01/30/19 08:21; Admin Dose 300 MG; Start 01/28/19 at 11:30 Multivitamins (Multivitamin) 30 ml DAILY GTB Last administered on 01/30/19 08:35; Admin Dose 30 ML; Start 01/28/19 at 11:00 Lansoprazole (Prevacid) 30 mg DAILY@06 NGT Last administered on 01/30/19 05:05; Admin Dose 30 MG; Start 01/28/19 at 11:00 Diagnostic Test (Pha) (Accu-Chek) 1 ea Q4 XX Last administered on 01/30/19 09:18; Admin Dose 1 EA; Start 01/28/19 at 13:00 Caspofungin 50 mg/ Sodium Chloride 250 ml @ 250 mls/hr Q24H IVPB Last administered on 01/29/19 16:59; Admin Dose 250 MLS/HR; Start 01/29/19 at 15:00 Nystatin/ Triamcinolone Acetonide (Mycolog Oint) 1 applic BID TOP Last administered on 01/30/19 09:17; Admin Dose 1 APPLIC; Start 01/28/19 at 22:30 Insulin Aspart (Novolog Insulin Pen) NOVOLOG *MILD* ALGORI... Q4 SC Last administered on 01/30/19 08:30; Admin Dose 1 UNIT; Start 01/29/19 at 05:00 Albuterol/ Ipratropium (Duoneb) 3 ml Q6HWA RESP THERAPY HHN Last administered on 5/8/19at 19:38; Admin Dose 3 ML; Start 01/29/19 at 14:00 Miscellaneous Information (*Rx Drug Level Order Reminder*) VANCO TROUGH @ 1,400 ON... 1400 ONCE XX ; Start 01/30/19 at 14:00; Stop 01/30/19 at 14:01 OREN MARSH M.D. January 30, 2019 09:29
--- NOTE | 2019-01-30 09:40 | PN ---
Date/Time of Note Date/Time of Note DATE: 01/30/19 TIME: 09:40 Assessment/Plan VTE [place]axis [place] [facility] [place]: 9 [place]CD [place] [facility] [place] SCD contraindicated: low risk/ambulating Pharmacological prophylaxis: NA/contraindicated Pharm contraindication: low risk/ambulating Lines/Catheters [facility] C[facility] Type [facility]from [facility] Central Line Central line still needed: Yes Urinary Cath still in place: Yes Reason Cath still needed: urinary retention Assessment/Plan Hospital Course Hospital Course # AMS likely due to stroke vs seizure, 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 Septic shock now on pressors likely secondary to pneumonia # Hypothermia ? sepsis #. Severe anemia #. Chronic renal failure likely secondary to sepsis, improved, normal creatinine #. Hypertension.currently hypotensive # Impending respiratory failure # Anasarca # Hyperlipidemia. # Hypothyroidism. # Bilateral groin cellulitis more likely associated with mateus, patches in groin and axilla bilaterally. skin peeling # History of rheumatoid arthritis with joint deformities. # Diabetes type 2. # Hx of CABGx2, carotid stent #. Peripheral vascular disease. #. Chronic a.fib, now on lovenox #. right arm edema # Neoplasm per CT abdomen. 4.3 cm cystic lesion along the pancreas body, enlarged since 10/10/2012 (previously 2.4 cm). 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 # Possible allergic skin reaction ? drug present since admission> improved Plan - LP per neuro ordered -titrae down levophed - montior Hb - cw vancomycin/aztreonam/caspofngin, sputum + E coli - ? mri neg for acute stroke - cw D5 at 40 cc/hr, FS check, repelete K - fu Neuro recs and neuro checks ? LP -on ASA, statin - NG -cw nebs/ solumedrol 40 iv q 8 - GI and DVT prophylaxsis -oncology consul dr Lorenzo aware:he said Ca 19-9 is negative indicating unlikely malignant. This may be a pseudocyst or a precancerous pancreatic lesion. It has been growing in size but patient is asymptomatic. EUS with biopsy is recommended and can either be done inpatient or outpatient setting. The patient at this time is unlikely a candidate for a Whipple surgery however. -skin care -Will check if dermatology comes inpatient> CALLED Dr Estrada Result Diagram: 01/30/190 01/30/190 Results 24hrs Laboratory Tests Test 01/29/19 10:38 01/29/19 13:53 01/29/19 18:04 01/29/19 21:00 Bedside Glucose 171 179 147 163 Test 01/30/19 00:44 01/30/19 04:20 01/30/19 04:36 01/30/19 08:29 Bedside Glucose 165 167 143 White Blood Count 36.5 H Red Blood Count 2.37 L Hemoglobin 7.0 L Hematocrit 21.4 L Mean Corpuscular Volume 90.3 Mean Corpuscular 29.5 Hemoglobin Mean Corpuscular 32.7 Hemoglobin Concent Red Cell Distribution 18.9 H Width Platelet Count 209 Mean Platelet Volume 11.0 H Immature Granulocytes % 2.900 H Neutrophils % Segmented Neutrophils 79 H % (Manual) Band Neutrophils % 18 H (Manual) Lymphocytes % Monocytes % Monocytes % (Manual) 2 Eosinophils % Basophils % Myelocytes % (Manual) 1 H Nucleated Red Blood 4 H Cells % Immature Granulocytes # 1.060 H Neutrophils # Neutrophils # (Manual) 31.2 H Band Neutrophils # 6.5 H Lymphocytes # Monocytes # Monocytes # (Manual) 0.7 Eosinophils # Basophils # Myelocytes # 0.3 H Nucleated Red Blood Cells # Platelet Estimate NORMAL Polychromasia 3+ Hypochromasia 1+ Poikilocytosis 3+ Anisocytosis 2+ Macrocytosis 2+ Target Cells 1+ Ovalocytes 1+ Sodium Level 144 Potassium Level 3.4 L Chloride Level 109 Carbon Dioxide Level 27 Anion Gap 8 Blood Urea Nitrogen 42 H Creatinine 1.43 H Est Glomerular Filtrat Rate mL/min Glucose Level 143 Calcium Level 7.9 L Total Bilirubin 0.2 Direct Bilirubin 0.00 Indirect Bilirubin 0.2 Aspartate Amino 17 Transf (AST/SGOT) Alanine 28 Aminotransferase (ALT/SG PT) Alkaline Phosphatase 77 Total Protein 4.3 L Albumin 2.0 L Globulin 2.30 Albumin/Globulin Ratio 0.86 Thyroid Stimulating 1.080 Hormone (TSH) Random Cortisol 16.2 Subjective 24 Hr Interval Summary Free Text/Dictation pt is more awake today said his name no seizures Exam/Review of Systems Exam Vitals Vital Signs Date Temp Pulse Resp B/P (MAP) Pulse Ox O2 O2 Flow FiO2 Time Delivery Rate 01/30/19 82 08:00 01/30/19 26 113/66 99 Nasal 07:00 (82) Cannula 01/30/19 2.0 06:10 01/30/19 96.0 03:30 01/27/19 30 14:25 Intake and Output 01/29/19 01/29/19 01/30/19 1515:00 23:00 07:00 IntakeIntake Total 510.0000 ml 785.00 ml 1060.00 ml OutputOutput Total 805 ml 473 ml 570 ml BalanceBalance -295.0000 ml 312.00 ml 490.00 ml Exam opens eyes, answers few questions rt pupil sluggish, left pupil sluggish Constitutional: frail Respiratory: diminished breath sounds Cardiovascular: irregular rhythm Gastrointestinal: soft Genitourinary - Male: other (rinaldi) Skin: diffuse skin rash hyperpigemented, sloughing of skin Results Results 24hrs Laboratory Tests Test 01/29/19 10:38 01/29/19 13:53 01/29/19 18:04 01/29/19 21:00 Bedside Glucose 171 179 147 163 Test 01/30/19 00:44 01/30/19 04:20 01/30/19 04:36 01/30/19 08:29 Bedside Glucose 165 167 143 White Blood Count 36.5 H Red Blood Count 2.37 L Hemoglobin 7.0 L Hematocrit 21.4 L Mean Corpuscular Volume 90.3 Mean Corpuscular 29.5 Hemoglobin Mean Corpuscular 32.7 Hemoglobin Concent Red Cell Distribution 18.9 H Width Platelet Count 209 Mean Platelet Volume 11.0 H Immature Granulocytes % 2.900 H Neutrophils % Segmented Neutrophils 79 H % (Manual) Band Neutrophils % 18 H (Manual) Lymphocytes % Monocytes % Monocytes % (Manual) 2 Eosinophils % Basophils % Myelocytes % (Manual) 1 H Nucleated Red Blood 4 H Cells % Immature Granulocytes # 1.060 H Neutrophils # Neutrophils # (Manual) 31.2 H Band Neutrophils # 6.5 H Lymphocytes # Monocytes # Monocytes # (Manual) 0.7 Eosinophils # Basophils # Myelocytes # 0.3 H Nucleated Red Blood Cells # Platelet Estimate NORMAL Polychromasia 3+ Hypochromasia 1+ Poikilocytosis 3+ Anisocytosis 2+ Macrocytosis 2+ Target Cells 1+ Ovalocytes 1+ Sodium Level 144 Potassium Level 3.4 L Chloride Level 109 Carbon Dioxide Level 27 Anion Gap 8 Blood Urea Nitrogen 42 H Creatinine 1.43 H Est Glomerular Filtrat Rate mL/min Glucose Level 143 Calcium Level 7.9 L Total Bilirubin 0.2 Direct Bilirubin 0.00 Indirect Bilirubin 0.2 Aspartate Amino 17 Transf (AST/SGOT) Alanine 28 Aminotransferase (ALT/SG PT) Alkaline Phosphatase 77 Total Protein 4.3 L Albumin 2.0 L Globulin 2.30 Albumin/Globulin Ratio 0.86 Thyroid Stimulating 1.080 Hormone (TSH) Random Cortisol 16.2 Medications Medication Current Medications Lactulose (Enulose) 20 gm DAILY PRN PO CONSTIPATION; Start 01/17/19 at 18:17 Acetaminophen (Tylenol Tab) 650 mg Q4H PRN PO PAIN Last administered on 01/23/19 22:48; Admin Dose 650 MG; Start 01/17/19 at 18:17 Miscellaneous Information (Pending [facility] Order For Wound Care) This patient ramirez... PRN PRN XX WOUND CARE; Start 01/17/19 at 18:17 Albuterol/ Ipratropium (Duoneb) 3 ml Q2H RESP THERAPY PRN HHN SHORTNESS OF BREATH; Start 01/17/19 at 18:17 Bisacodyl (Dulcolax) 10 mg BID PRN PO CONSTIPATION; Start 01/17/19 at 18:17; Status Hold Folic Acid (Folic Acid) 1 mg DAILY PO Last administered on 01/30/19at 08:35; Admin Dose 1 MG; Start 01/17/19 at 18:17 Latanoprost (Xalatan) 1 drop HS BOTH EYES Last administered on 01/29/19at 20:58; Admin Dose 1 DROP; Start 01/17/19 at 18:17 Nitroglycerin (Nitroglycerin (Sl Tab) 0.4 Mg) 0.4 tab Q5M PRN SL CHEST PAIN; Start 01/17/19 at 18:17 Nystatin (Nystatin Powder) 1 applic BID TOP Last administered on 01/30/19 09:17; Admin Dose 1 APPLIC; Start 01/17/19 at 18:17 IV Flush (NS 3 ml) 3 ml PER PROTOCOL IV ; Start 01/17/19 at 18:17 Miscellaneous Information 1 ea NOTE XX ; Start 01/17/19 at 18:17 Glucose (Glutose) 15 gm Q15M PRN PO DECREASED GLUCOSE; Start 01/17/19 at 18:17 Glucose (Glutose) 22.5 gm Q15M PRN PO DECREASED GLUCOSE; Start 01/17/19 at 18:17 Dextrose (D50w Syringe) 25 ml Q15M PRN IV DECREASED GLUCOSE; Start 01/17/19 at 18:17 Dextrose (D50w Syringe) 50 ml Q15M PRN IV DECREASED GLUCOSE; Start 01/17/19 at 18:17 Glucagon (Glucagen) 1 mg Q15M PRN IM DECREASED GLUCOSE; Start 01/17/19 at 18:17 Glucose (Glutose) 15 gm Q15M PRN BUCCAL DECREASED GLUCOSE; Start 01/17/19 at 18:17 Zinc Sulfate (Zinc Sulfate) 220 mg DAILY PO Last administered on 01/30/19 08:35; Admin Dose 220 MG; Start 01/17/19 at 18:17 Ascorbic Acid (Vitamin C) 250 mg DAILY PO Last administered on 01/30/19 08:35; Admin Dose 250 MG; Start 01/17/19 at 18:17 Multi-Ingredient Ointment (Aquaphor Oint 52.5 Gm) 1 applic BID TOP Last administered on 01/30/19at 09:17; Admin Dose 1 APPLIC; Start 01/17/19 at 18:17 Aspirin (Aspirin) 81 mg DAILY PO Last administered on 01/30/19 08:35; Admin Dose 81 MG; Start 01/17/19 at 18:17 Bisacodyl (Dulcolax Supp) 10 mg DAILY PRN [place] CONSTIPATION; Start 01/17/19 at 18:17 Zinc Acetate/ Diphenhydramine (Benadryl 2% Cr) 1 applic Q6H PRN TOP ITCHING Last administered on 01/26/19at 07:54; Admin Dose 1 APPLIC; Start 01/19/19 at 16:37 IV Flush (NS 10 ml) 10 ml PRN PRN IV IV PROTOCOL; Start 01/20/19 at 14:30 Cyanocobalamin (Vitamin B12 Inj) 1,000 mcg Q7D IM ; Start 02/03/19 at 09:00 Dextrose 1,000 ml @ 40 mls/hr Q24H IV Last administered on 01/29/19at 20:58; Admin Dose 40 MLS/HR; Start 01/26/19 at 13:00 Metoprolol Tartrate (Lopressor) 5 mg Q4H PRN IV HR>110 Hold SBP<100; Start 01/26/19 at 14:30 Furosemide (Lasix) 40 mg BID DIURETICS IV Last administered on 01/30/19 05:04; Admin Dose 40 MG; Start 01/27/19 at 18:00 Vancomycin HCl (Vanco Iv Per Pharmacy) VANCOMYCIN PER PHARMACY PER PROTOCOL XX ; Start 01/27/19 at 12:00 Norepinephrine 250 ml @ 1.875 mls/ hr TITRATE IV Last administered on 01/30/19 01:30; Admin Dose 11.25 MLS/HR; Start 01/27/19 at 12:30 Methylprednisolone Sodium Succinate (Solu-Medrol) 40 mg Q8 IV Last administered on 01/30/19 05:05; Admin Dose 40 MG; Start 01/27/19 at 14:00 Enoxaparin Sodium (Lovenox) 60 mg DAILY SC Last administered on 01/30/19 08:29; Admin Dose 60 MG; Start 01/28/19 at 09:00 Lorazepam (Ativan) 1 mg Q2 PRN IV SEIZURES Last administered on 01/28/19 19:29; Admin Dose 1 MG; Start 01/27/19 at 14:00 Aztreonam 50 ml @ 100 mls/hr Q12 IVPB Last administered on 01/30/19 09:02; Admin Dose 100 MLS/HR; Start 01/27/19 at 16:30 Metronidazole 100 ml @ 100 mls/hr Q8 IVPB Last administered on 01/30/19 05:05; Admin Dose 100 MLS/HR; Start 01/27/19 at 15:00 Vancomycin HCl 250 ml @ 125 mls/hr Q36H IVPB Last administered on 01/29/19 03:32; Admin Dose 125 MLS/HR; Start 01/29/19 at 03:00 Atorvastatin Calcium (Lipitor) 40 mg QHS NGT Last administered on 01/29/19 20:59; Admin Dose 40 MG; Start 01/28/19 at 21:00 Docusate Sodium (Colace Liquid Cup) 100 mg BID NGT ; Start 01/27/19 at 22:00; Status Hold Terazosin HCl (Hytrin) 10 mg HS NGT ; Start 01/28/19 at 21:00 Levetiracetam 100 ml @ 400 mls/hr Q12 IVPB Last administered on 01/30/19 08:38; Admin Dose 400 MLS/HR; Start 01/28/19 at 09:00 Levothyroxine Sodium (Synthroid) 125 mcg BEFORE BREAKFAST NGT Last administered on 01/30/19 06:10; Admin Dose 125 MCG; Start 01/28/19 at 07:00 Ferrous Sulfate (Feosol Liquid Cup) 300 mg WITH MEALS GTB Last administered on 01/30/19 08:21; Admin Dose 300 MG; Start 01/28/19 at 11:30 Multivitamins (Multivitamin) 30 ml DAILY GTB Last administered on 01/30/19 08:35; Admin Dose 30 ML; Start 01/28/19 at 11:00 Lansoprazole (Prevacid) 30 mg DAILY@06 NGT Last administered on 01/30/19 05:05; Admin Dose 30 MG; Start 01/28/19 at 11:00 Diagnostic Test (Pha) (Accu-Chek) 1 ea Q4 XX Last administered on 01/30/19 09:18; Admin Dose 1 EA; Start 01/28/19 at 13:00 Caspofungin 50 mg/ Sodium Chloride 250 ml @ 250 mls/hr Q24H IVPB Last administered on 01/29/19 16:59; Admin Dose 250 MLS/HR; Start 01/29/19 at 15:00 Nystatin/ Triamcinolone Acetonide (Mycolog Oint) 1 applic BID TOP Last administered on 01/30/19 09:17; Admin Dose 1 APPLIC; Start 01/28/19 at 22:30 Insulin Aspart (Novolog Insulin Pen) NOVOLOG *MILD* ALGORI... Q4 SC Last administered on 01/30/19 08:30; Admin Dose 1 UNIT; Start 01/29/19 at 05:00 Albuterol/ Ipratropium (Duoneb) 3 ml Q6HWA RESP THERAPY HHN Last administered on 01/29/19 19:38; Admin Dose 3 ML; Start 01/29/19 at 14:00 Miscellaneous Information (*Rx Drug Level Order Reminder*) VANCO TROUGH @ 1,400 ON... 1400 ONCE XX ; Start 01/30/19 at 14:00; Stop 01/30/19 at 14:01 Epoetin Dae-epbx (RETACRIT(non-esrd)) 40,000 unit Mo@1700 SC ; Start 02/03/19 at 17:00 IVAN AKHTAR MD January 30, 2019 09:40
[2019-01-30] MEDS ORDERED: POTASSIUM CHLORIDE (SR) 20 MEQ TAB PO SCH (10:30)
[2019-01-30] MEDS: ALBUTEROL/IPRATROPIUM (NEB) 3 ML AMP HHN SCH ×3 (10:47→20:46)
--- NOTE | 2019-01-30 11:06 | CONS ---
Consult Date/Type/Reason Admit Date/Time Jan 17, 2019 at 15:58 Initial Consult Date 01/18/19 Type of Consult Pulmonary Requesting Provider: IVAN AKHTAR MD Date/Time of Note DATE: 01/30/19 TIME: 11:05 Subjective More alert this morning. Continues supplemental O2 still has diffuse exfoliating skin lesions. Objective Vital Signs Date Temp Pulse Resp B/P (MAP) Pulse Ox O2 O2 Flow FiO2 Time Delivery Rate 01/30/19 78 26 100 Nasal 2.0 10:48 Cannula 01/30/19 111/50 10:30 (70) 01/30/19 95.7 10:00 01/27/19 30 14:25 Intake and Output 01/29/19 01/29/19 01/30/19 1414:59 22:59 06:59 IntakeIntake Total 531.2500 ml 722.50 ml 1050.00 ml OutputOutput Total 805 ml 443 ml 600 ml BalanceBalance -273.7500 ml 279.50 ml 450.00 ml Exam PHYSICAL EXAMINATION: GENERAL: Elderly-appearing gentleman, nasal cannula O2 NECK: Supple. No JVD or lymphadenopathy. CARDIAC: S1, S2. No added sounds or murmurs. CHEST: Diminished air entry bilaterally. ABDOMEN: Soft, nontender. No guarding or rebound. EXTREMITIES: No cyanosis, clubbing. A 1+ edema. NEUROLOGIC: Unable to assess. Vent Setting Fraction of Inspired Oxygen pe: 21 Results/Medications Result Diagram: 01/30/19 0420 01/30/19 0420 Results 24 hrs Laboratory Tests Test 01/29/19 13:53 01/29/19 18:04 01/29/19 21:00 01/30/19 00:44 Bedside Glucose 179 147 163 165 Test 01/30/19 04:20 01/30/19 04:36 01/30/19 08:29 White Blood Count 36.5 H Red Blood Count 2.37 L Hemoglobin 7.0 L Hematocrit 21.4 L Mean Corpuscular Volume 90.3 Mean Corpuscular 29.5 Hemoglobin Mean Corpuscular 32.7 Hemoglobin Concent Red Cell Distribution 18.9 H Width Platelet Count 209 Mean Platelet Volume 11.0 H Immature Granulocytes % 2.900 H Neutrophils % Segmented Neutrophils 79 H % (Manual) Band Neutrophils % 18 H (Manual) Lymphocytes % Monocytes % Monocytes % (Manual) 2 Eosinophils % Basophils % Myelocytes % (Manual) 1 H Nucleated Red Blood 4 H Cells % Immature Granulocytes # 1.060 H Neutrophils # Neutrophils # (Manual) 31.2 H Band Neutrophils # 6.5 H Lymphocytes # Monocytes # Monocytes # (Manual) 0.7 Eosinophils # Basophils # Myelocytes # 0.3 H Nucleated Red Blood Cells # Platelet Estimate NORMAL Polychromasia 3+ Hypochromasia 1+ Poikilocytosis 3+ Anisocytosis 2+ Macrocytosis 2+ Target Cells 1+ Ovalocytes 1+ Sodium Level 144 Potassium Level 3.4 L Chloride Level 109 Carbon Dioxide Level 27 Anion Gap 8 Blood Urea Nitrogen 42 H Creatinine 1.43 H Est Glomerular Filtrat Rate mL/min Glucose Level 143 Calcium Level 7.9 L Total Bilirubin 0.2 Direct Bilirubin 0.00 Indirect Bilirubin 0.2 Aspartate Amino 17 Transf (AST/SGOT) Alanine 28 Aminotransferase (ALT/SG PT) Alkaline Phosphatase 77 Total Protein 4.3 L Albumin 2.0 L Globulin 2.30 Albumin/Globulin Ratio 0.86 Thyroid Stimulating 1.080 Hormone (TSH) Random Cortisol 16.2 Bedside Glucose 167 143 Medications Current Medications Lactulose (Enulose) 20 gm DAILY PRN PO CONSTIPATION; Start 01/17/19 at 18:17 Acetaminophen (Tylenol Tab) 650 mg Q4H PRN PO PAIN Last administered on 01/23/19 22:48; Admin Dose 650 MG; Start 01/17/19 at 18:17 Miscellaneous Information (Pending [facility] Order For Wound Care) This patient ramirez... PRN PRN XX WOUND CARE; Start 01/17/19 at 18:17 Albuterol/ Ipratropium (Duoneb) 3 ml Q2H RESP THERAPY PRN HHN SHORTNESS OF BREATH; Start 01/17/19 at 18:17 Bisacodyl (Dulcolax) 10 mg BID PRN PO CONSTIPATION; Start 01/17/19 at 18:17; Status Hold Folic Acid (Folic Acid) 1 mg DAILY PO Last administered on 01/30/19 08:35; Admin Dose 1 MG; Start 01/17/19 at 18:17 Latanoprost (Xalatan) 1 drop HS BOTH EYES Last administered on 01/29/19at 20:58; Admin Dose 1 DROP; Start 01/17/19 at 18:17 Nitroglycerin (Nitroglycerin (Sl Tab) 0.4 Mg) 0.4 tab Q5M PRN SL CHEST PAIN; Start 01/17/19 at 18:17 Nystatin (Nystatin Powder) 1 applic BID TOP Last administered on 01/30/19 09:17; Admin Dose 1 APPLIC; Start 01/17/19 at 18:17 IV Flush (NS 3 ml) 3 ml PER PROTOCOL IV ; Start 01/17/19 at 18:17 Miscellaneous Information 1 ea NOTE XX ; Start 01/17/19 at 18:17 Glucose (Glutose) 15 gm Q15M PRN PO DECREASED GLUCOSE; Start 01/17/19 at 18:17 Glucose (Glutose) 22.5 gm Q15M PRN PO DECREASED GLUCOSE; Start 01/17/19 at 18:17 Dextrose (D50w Syringe) 25 ml Q15M PRN IV DECREASED GLUCOSE; Start 01/17/19 at 18:17 Dextrose (D50w Syringe) 50 ml Q15M PRN IV DECREASED GLUCOSE; Start 01/17/19 at 18:17 Glucagon (Glucagen) 1 mg Q15M PRN IM DECREASED GLUCOSE; Start 01/17/19 at 18:17 Glucose (Glutose) 15 gm Q15M PRN BUCCAL DECREASED GLUCOSE; Start 01/17/19 at 18:17 Zinc Sulfate (Zinc Sulfate) 220 mg DAILY PO Last administered on 01/30/19 08:35; Admin Dose 220 MG; Start 01/17/19 at 18:17 Ascorbic Acid (Vitamin C) 250 mg DAILY PO Last administered on 01/30/19 08:35; Admin Dose 250 MG; Start 01/17/19 at 18:17 Multi-Ingredient Ointment (Aquaphor Oint 52.5 Gm) 1 applic BID TOP Last administered on 01/30/19 09:17; Admin Dose 1 APPLIC; Start 01/17/19 at 18:17 Aspirin (Aspirin) 81 mg DAILY PO Last administered on 01/30/19 08:35; Admin Dose 81 MG; Start 01/17/19 at 18:17 Bisacodyl (Dulcolax Supp) 10 mg DAILY PRN [place] CONSTIPATION; Start 01/17/19 at 18:17 Zinc Acetate/ Diphenhydramine (Benadryl 2% Cr) 1 applic Q6H PRN TOP ITCHING Last administered on 01/26/19 07:54; Admin Dose 1 APPLIC; Start 01/19/19 at 16:37 IV Flush (NS 10 ml) 10 ml PRN PRN IV IV PROTOCOL; Start 01/20/19 at 14:30 Cyanocobalamin (Vitamin B12 Inj) 1,000 mcg Q7D IM ; Start 02/03/19 at 09:00 Dextrose 1,000 ml @ 40 mls/hr Q24H IV Last administered on 01/29/19 20:58; Admin Dose 40 MLS/HR; Start 01/26/19 at 13:00 Metoprolol Tartrate (Lopressor) 5 mg Q4H PRN IV HR>110 Hold SBP<100; Start 01/26/19 at 14:30 Furosemide (Lasix) 40 mg BID DIURETICS IV Last administered on 01/30/19 05:04; Admin Dose 40 MG; Start 01/27/19 at 18:00 Vancomycin HCl (Vanco Iv Per Pharmacy) VANCOMYCIN PER PHARMACY PER PROTOCOL XX ; Start 01/27/19 at 12:00 Norepinephrine 250 ml @ 1.875 mls/ hr TITRATE IV Last administered on 01/30/19 01:30; Admin Dose 11.25 MLS/HR; Start 01/27/19 at 12:30 Methylprednisolone Sodium Succinate (Solu-Medrol) 40 mg Q8 IV Last administered on 01/30/19 05:05; Admin Dose 40 MG; Start 01/27/19 at 14:00 Enoxaparin Sodium (Lovenox) 60 mg DAILY SC Last administered on 01/30/19 08:29; Admin Dose 60 MG; Start 01/28/19 at 09:00 Lorazepam (Ativan) 1 mg Q2 PRN IV SEIZURES Last administered on 01/28/19 19:29; Admin Dose 1 MG; Start 01/27/19 at 14:00 Aztreonam 50 ml @ 100 mls/hr Q12 IVPB Last administered on 01/30/19 09:02; Admin Dose 100 MLS/HR; Start 01/27/19 at 16:30 Metronidazole 100 ml @ 100 mls/hr Q8 IVPB Last administered on 01/30/19 05:05; Admin Dose 100 MLS/HR; Start 01/27/19 at 15:00 Vancomycin HCl 250 ml @ 125 mls/hr Q36H IVPB Last administered on 01/29/19 03:32; Admin Dose 125 MLS/HR; Start 01/29/19 at 03:00 Atorvastatin Calcium (Lipitor) 40 mg QHS NGT Last administered on 01/29/19 20:59; Admin Dose 40 MG; Start 01/28/19 at 21:00 Docusate Sodium (Colace Liquid Cup) 100 mg BID NGT ; Start 01/27/19 at 22:00; Status Hold Terazosin HCl (Hytrin) 10 mg HS NGT ; Start 01/28/19 at 21:00 Levetiracetam 100 ml @ 400 mls/hr Q12 IVPB Last administered on 01/30/19 08:38; Admin Dose 400 MLS/HR; Start 01/28/19 at 09:00 Levothyroxine Sodium (Synthroid) 125 mcg BEFORE BREAKFAST NGT Last administered on 01/30/19 06:10; Admin Dose 125 MCG; Start 01/28/19 at 07:00 Ferrous Sulfate (Feosol Liquid Cup) 300 mg WITH MEALS GTB Last administered on 01/30/19 08:21; Admin Dose 300 MG; Start 01/28/19 at 11:30 Multivitamins (Multivitamin) 30 ml DAILY GTB Last administered on 01/30/19 08:35; Admin Dose 30 ML; Start 01/28/19 at 11:00 Lansoprazole (Prevacid) 30 mg DAILY@06 NGT Last administered on 01/30/19 05:05; Admin Dose 30 MG; Start 01/28/19 at 11:00 Diagnostic Test (Pha) (Accu-Chek) 1 ea Q4 XX Last administered on 01/30/19 09:18; Admin Dose 1 EA; Start 01/28/19 at 13:00 Caspofungin 50 mg/ Sodium Chloride 250 ml @ 250 mls/hr Q24H IVPB Last administered on 01/29/19 16:59; Admin Dose 250 MLS/HR; Start 01/29/19 at 15:00 Nystatin/ Triamcinolone Acetonide (Mycolog Oint) 1 applic BID TOP Last administered on 01/30/19 09:17; Admin Dose 1 APPLIC; Start 01/28/19 at 22:30 Insulin Aspart (Novolog Insulin Pen) NOVOLOG *MILD* ALGORI... Q4 SC Last administered on 01/30/19at 08:30; Admin Dose 1 UNIT; Start 01/29/19 at 05:00 Albuterol/ Ipratropium (Duoneb) 3 ml Q6HWA RESP THERAPY HHN Last administered on 01/30/19at 10:47; Admin Dose 3 ML; Start 01/29/19 at 14:00 Miscellaneous Information (*Rx Drug Level Order Reminder*) VANCO TROUGH @ 1,400 ON... 1400 ONCE XX ; Start 01/30/19 at 14:00; Stop 01/30/19 at 14:01 Epoetin Dae-epbx (RETACRIT(non-esrd)) 40,000 unit Mo@1700 SC ; Start 02/03/19 at 17:00 Potassium Chloride (Klor-Con 20) 20 meq BID PO ; Start 01/30/19 at 10:30; Stop at 23:59 Assessment/Plan Hospital Course (Demo Recall) IMPRESSION 1. Acute hypoxemic respiratory failure likely secondary to combination of volume overload and pneumonia 2. Encephalopathy underlying dementia versus toxic metabolic 3. Valvular heart disease 4. Severe dysphagia 5. Septic shock likely secondary to above 6. Anemia, no active GI bleeding 7. Skin diffuse excoriating skin lesion unclear etiology not consistent with history of "red man" syndrome. or pemphigus. Plan 1. Continue vasopressors titrate to keep map greater than 65 2. Continue broad-spectrum antibiotics 3. Aspiration precautions and tube feeding 4. Monitor H&H 5. Palliative care consult appreciated. Critical care time 40 minutes Consider 1 unit PRBCs. DIANA MCRAE MD, [facility] January 30, 2019 11:06
[2019-01-30] MEDS ORDERED: POTASSIUM CHLORIDE 20 MEQ POWDER FOR ORAL SOLN PO SCH (11:56)
[2019-01-30] MEDS: DEXTROSE 10% 1,000 ML IV SCH (12:46)
[2019-01-30] MEDS: POTASSIUM CHLORIDE 20 MEQ POWDER FOR ORAL SOLN PO SCH ×2 (12:58→21:28)
[2019-01-30] MEDS: MUPIROCIN 2% 22 GM OINT TOP SCH ×2 (15:26→21:28)
--- NOTE | 2019-01-30 15:52 | CONS ---
Assessment/Plan Assessment/Plan Hospital Course (Demo Recall) Patient is more awake and looks comfortable, no fevers no seizures, daughter at bedside. WBC today 36.5 platelets 209 bands 18 BUN 42 creatinine 1.43 Sputum culture grew E. coli Antimicrobials: Vancomycin, aztreonam, Flagyl Cancidas Indwelling: Left subclavian triple-lumen catheter, Wade catheter, NG tube Allergy: Penicillin, sulfa Physical examination: Obese well-developed chronically ill-appearing - [place] man who is lethargic, in no distress. Head atraumatic normocephalic sclera nonicteric. Neck is supple chest rise symmetrical breath sounds diminished bases. Heart: S1-S2. Abdomen obese soft bowel sounds present extremities without cyanosis, bilateral edema Assessment: 1. Severe sepsis with shock 2. Acute encephalopathy 3. Seizures 4. Healthcare acquired, possible aspiration pneumonia 5. Coronary artery disease/history of CABG 6. Advanced rheumatoid arthritis 5. Chronic atrial fibrillation 6. Diabetes 7. BPH 9. Acute on chronic anemia===> s/p EGD/colonoscopy 01/09/19 10. Status post right epididymitis 11. Pancreatic lesion per CT, unlikely neoplasm per oncology notes 12. History of CVA Plan: Clinically improving, continue present care antibiotics, add tobramycin inhalation. Discussed with daughter at bedside Consultation Date/Type/Reason Admit Date/Time Jan 17, 2019 at 15:58 Initial Consult Date 01/18/19 Type of Consult id Requesting Provider: IVAN AKHTAR MD Date/Time of Note DATE: 01/30/19 TIME: 15:52 Exam/Review of Systems Exam Vitals Vital Signs Date Temp Pulse Resp B/P (MAP) Pulse Ox O2 O2 Flow FiO2 Time Delivery Rate 01/30/19 84 24 98 Nasal 2.0 15:05 Cannula 01/30/19 90/45 (60) 11:45 01/30/19 95.7 10:00 01/27/19 30 14:25 Intake and Output 01/29/19 01/29/19 01/30/19 1515:00 23:00 07:00 IntakeIntake Total 510.0000 ml 785.00 ml 1060.00 ml OutputOutput Total 805 ml 473 ml 570 ml BalanceBalance -295.0000 ml 312.00 ml 490.00 ml Results Result Diagram: 01/30/190 01/30/19 0420 Results 24hrs Laboratory Tests Test 01/29/19 18:04 01/29/19 21:00 01/30/19 00:44 01/30/19 04:20 Bedside Glucose 147 163 165 White Blood Count 36.5 H Red Blood Count 2.37 L Hemoglobin 7.0 L Hematocrit 21.4 L Mean Corpuscular Volume 90.3 Mean Corpuscular 29.5 Hemoglobin Mean Corpuscular 32.7 Hemoglobin Concent Red Cell Distribution 18.9 H Width Platelet Count 209 Mean Platelet Volume 11.0 H Immature Granulocytes % 2.900 H Neutrophils % Segmented Neutrophils 79 H % (Manual) Band Neutrophils % 18 H (Manual) Lymphocytes % Monocytes % Monocytes % (Manual) 2 Eosinophils % Basophils % Myelocytes % (Manual) 1 H Nucleated Red Blood 4 H Cells % Immature Granulocytes # 1.060 H Neutrophils # Neutrophils # (Manual) 31.2 H Band Neutrophils # 6.5 H Lymphocytes # Monocytes # Monocytes # (Manual) 0.7 Eosinophils # Basophils # Myelocytes # 0.3 H Nucleated Red Blood Cells # Platelet Estimate NORMAL Polychromasia 3+ Hypochromasia 1+ Poikilocytosis 3+ Anisocytosis 2+ Macrocytosis 2+ Target Cells 1+ Ovalocytes 1+ Sodium Level 144 Potassium Level 3.4 L Chloride Level 109 Carbon Dioxide Level 27 Anion Gap 8 Blood Urea Nitrogen 42 H Creatinine 1.43 H Est Glomerular Filtrat Rate mL/min Glucose Level 143 Calcium Level 7.9 L Total Bilirubin 0.2 Direct Bilirubin 0.00 Indirect Bilirubin 0.2 Aspartate Amino 17 Transf (AST/SGOT) Alanine 28 Aminotransferase (ALT/SG PT) Alkaline Phosphatase 77 Total Protein 4.3 L Albumin 2.0 L Globulin 2.30 Albumin/Globulin Ratio 0.86 Thyroid Stimulating 1.080 Hormone (TSH) Random Cortisol 16.2 Test 01/30/19 04:36 01/30/19 08:29 01/30/19 12:46 01/30/19 14:09 Bedside Glucose 167 143 188 Vancomycin Level Trough 20.9 *H Medications Medication Current Medications Lactulose (Enulose) 20 gm DAILY PRN PO CONSTIPATION; Start 01/17/19 at 18:17 Acetaminophen (Tylenol Tab) 650 mg Q4H PRN PO PAIN Last administered on 01/23/19at 22:48; Admin Dose 650 MG; Start 01/17/19 at 18:17 Miscellaneous Information (Pending [facility] Order For Wound Care) This patient ramirez... PRN PRN XX WOUND CARE; Start 01/17/19 at 18:17 Albuterol/ Ipratropium (Duoneb) 3 ml Q2H RESP THERAPY PRN HHN SHORTNESS OF BREATH; Start 01/17/19 at 18:17 Bisacodyl (Dulcolax) 10 mg BID PRN PO CONSTIPATION; Start 01/17/19 at 18:17; Status Hold Folic Acid (Folic Acid) 1 mg DAILY PO Last administered on 01/30/19at 08:35; Admin Dose 1 MG; Start 01/17/19 at 18:17 Latanoprost (Xalatan) 1 drop HS BOTH EYES Last administered on 01/29/19at 20:58; Admin Dose 1 DROP; Start 01/17/19 at 18:17 Nitroglycerin (Nitroglycerin (Sl Tab) 0.4 Mg) 0.4 tab Q5M PRN SL CHEST PAIN; Start 01/17/19 at 18:17 Nystatin (Nystatin Powder) 1 applic BID TOP Last administered on 01/30/19at 09:17; Admin Dose 1 APPLIC; Start 01/17/19 at 18:17 IV Flush (NS 3 ml) 3 ml PER PROTOCOL IV ; Start 01/17/19 at 18:17 Miscellaneous Information 1 ea NOTE XX ; Start 01/17/19 at 18:17 Glucose (Glutose) 15 gm Q15M PRN PO DECREASED GLUCOSE; Start 01/17/19 at 18:17 Glucose (Glutose) 22.5 gm Q15M PRN PO DECREASED GLUCOSE; Start 01/17/19 at 18:17 Dextrose (D50w Syringe) 25 ml Q15M PRN IV DECREASED GLUCOSE; Start 01/17/19 at 18:17 Dextrose (D50w Syringe) 50 ml Q15M PRN IV DECREASED GLUCOSE; Start 01/17/19 at 18:17 Glucagon (Glucagen) 1 mg Q15M PRN IM DECREASED GLUCOSE; Start 01/17/19 at 18:17 Glucose (Glutose) 15 gm Q15M PRN BUCCAL DECREASED GLUCOSE; Start 01/17/19 at 18:17 Zinc Sulfate (Zinc Sulfate) 220 mg DAILY PO Last administered on 01/30/19at 08:35; Admin Dose 220 MG; Start 01/17/19 at 18:17 Ascorbic Acid (Vitamin C) 250 mg DAILY PO Last administered on 01/30/19 08:35; Admin Dose 250 MG; Start 01/17/19 at 18:17 Multi-Ingredient Ointment (Aquaphor Oint 52.5 Gm) 1 applic BID TOP Last administered on 01/30/19 09:17; Admin Dose 1 APPLIC; Start 01/17/19 at 18:17 Aspirin (Aspirin) 81 mg DAILY PO Last administered on 01/30/19 08:35; Admin Dose 81 MG; Start 01/17/19 at 18:17 Bisacodyl (Dulcolax Supp) [address] CONSTIPATION; Start 01/17/19 at 18:17 Zinc Acetate/ Diphenhydramine (Benadryl 2% Cr) 1 applic Q6H PRN TOP ITCHING Last administered on 01/26/19 07:54; Admin Dose 1 APPLIC; Start 01/19/19 at 16:37 IV Flush (NS 10 ml) 10 ml PRN PRN IV IV PROTOCOL; Start 01/20/19 at 14:30 Cyanocobalamin (Vitamin B12 Inj) 1,000 mcg Q7D IM ; Start 02/03/19 at 09:00 Dextrose 1,000 ml @ 40 mls/hr Q24H IV Last administered on 01/29/19 20:58; Admin Dose 40 MLS/HR; Start 01/26/19 at 13:00 Metoprolol Tartrate (Lopressor) 5 mg Q4H PRN IV HR>110 Hold SBP<100; Start 01/26 at 14:30 Furosemide (Lasix) 40 mg BID DIURETICS IV Last administered on 01/30/19 05:04; Admin Dose 40 MG; Start 01/27/19 at 18:00 Vancomycin HCl (Vanco Iv Per Pharmacy) VANCOMYCIN PER PHARMACY PER PROTOCOL XX ; Start 01/27/19 at 12:00 Norepinephrine 250 ml @ 1.875 mls/ hr TITRATE IV Last administered on 01/30/19 01:30; Admin Dose 11.25 MLS/HR; Start 01/27/19 at 12:30 Methylprednisolone Sodium Succinate (Solu-Medrol) 40 mg Q8 IV Last administered on 01/30/19 14:44; Admin Dose 40 MG; Start 01/27/19 at 14:00 Enoxaparin Sodium (Lovenox) 60 mg DAILY SC Last administered on 01/30/19 08:29; Admin Dose 60 MG; Start 01/28/19 at 09:00 Lorazepam (Ativan) 1 mg Q2 PRN IV SEIZURES Last administered on 01/28/19 19:29; Admin Dose 1 MG; Start 01/27/19 at 14:00 Aztreonam 50 ml @ 100 mls/hr Q12 IVPB Last administered on 01/30/19 09:02; Admin Dose 100 MLS/HR; Start 01/27/19 at 16:30 Metronidazole 100 ml @ 100 mls/hr Q8 IVPB Last administered on 01/30/19 14:59; Admin Dose 100 MLS/HR; Start 01/27/19 at 15:00 Atorvastatin Calcium (Lipitor) 40 mg QHS NGT Last administered on 01/29/19 20:59; Admin Dose 40 MG; Start 01/28/19 at 21:00 Docusate Sodium (Colace Liquid Cup) 100 mg BID NGT ; Start 01/27/19 at 22:00; Status Hold Terazosin HCl (Hytrin) 10 mg HS NGT ; Start 01/28/19 at 21:00 Levetiracetam 100 ml @ 400 mls/hr Q12 IVPB Last administered on 01/30/19 08:38; Admin Dose 400 MLS/HR; Start 01/28/19 at 09:00 Levothyroxine Sodium (Synthroid) 125 mcg BEFORE BREAKFAST NGT Last administered on 01/30/19 06:10; Admin Dose 125 MCG; Start 01/28/19 at 07:00 Ferrous Sulfate (Feosol Liquid Cup) 300 mg WITH MEALS GTB Last administered on 01/30/19 12:47; Admin Dose 300 MG; Start 01/28/19 at 11:30 Multivitamins (Multivitamin) 30 ml DAILY GTB Last administered on 01/30/19 08:35; Admin Dose 30 ML; Start 01/28/19 at 11:00 Lansoprazole (Prevacid) 30 mg DAILY@06 NGT Last administered on 01/30/19 05:05; Admin Dose 30 MG; Start 01/28/19 at 11:00 Diagnostic Test (Pha) (Accu-Chek) 1 ea Q4 XX Last administered on 01/30/19 09:18; Admin Dose 1 EA; Start 01/28/19 at 13:00 Caspofungin 50 mg/ Sodium Chloride 250 ml @ 250 mls/hr Q24H IVPB Last administered on 01/29/19 16:59; Admin Dose 250 MLS/HR; Start 01/29/19 at 15:00 Nystatin/ Triamcinolone Acetonide (Mycolog Oint) 1 applic BID TOP Last administered on 01/30/19 09:17; Admin Dose 1 APPLIC; Start 01/28/19 at 22:30 Insulin Aspart (Novolog Insulin Pen) NOVOLOG *MILD* ALGORI... Q4 SC Last administered on 01/30/19 12:52; Admin Dose 2 UNIT; Start 01/29/19 at 05:00 Albuterol/ Ipratropium (Duoneb) 3 ml Q6HWA RESP THERAPY HHN Last administered on 01/30/19 15:04; Admin Dose 3 ML; Start 01/29/19 at 14:00 Epoetin Dae-epbx (RETACRIT(non-esrd)) 40,000 unit Mo@1700 SC ; Start 02/03/19 at 17:00 Potassium Chloride (Potassium Chloride Pwd/Soln) 20 meq BID PO Last administered on 01/30/19 12:58; Admin Dose 20 MEQ; Start 01/30/19 at 13:00; Stop 01/30/19 at 21:01 Mupirocin (Bactroban) 1 applic BID TOP ; Start 01/30/19 at 15:26; Stop 02/09/19 at 15:25 Vancomycin HCl 250 ml @ 125 mls/hr Q48H IVPB ; Start 01/31/19 at 11:00 LUCIAN HARKINS NP January 30, 2019 15:52
--- NOTE | 2019-01-30 15:52 | CONS ---
Assessment/Plan Assessment/Plan Hospital Course 88 yo M with multiple comorbidities who initially presented for evaluation of hiccups. He was noted to become acutely altered... for which neurology is consulted. He was noted to develop ams on 01/21 around 7pm and noted on 01/22 to be unresponsive... prompting a code stroke activation. The clinical picture suggests an acute toxic-metabolic encephalopathy.. Meningoencephalitis is, though, not yet excluded. MRI brain is without acute ischemia, though notable for chronic infarcts. 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 On 01/27/19, the pt was noted to have recurrent spells concerning for seizure, in the context of hypotension and hypothermia --> Tx to ICU EEG is without ongoing epileptiform activity P: Await LP for CSF eval when medically able Cont Keppra 500 BID for now Ativan IV PRN prolonged seizure (> 5 min) Agree w/ ASA/Lipitor daily pending the above Limit sedating medications where possible Other medical management per primary Will follow clinically Consultation Date/Type/Reason Admit Date/Time Jan 17, 2019 at 15:58 Type of Consult Neurology Reason for Consultation ams; eval for stroke Requesting Provider: IVAN AKHTAR MD Date/Time of Note DATE: 01/30/19 TIME: 15:51 24 HR Interval Summary Free Text/Dictation Continues critical care. S/p punch biopsy. Awaiting LP. Exam Vital Signs Vitals Vital Signs Date Temp Pulse Resp B/P (MAP) Pulse Ox O2 O2 Flow FiO2 Time Delivery Rate 01/30/19 84 24 98 Nasal 2.0 15:05 Cannula 01/30/19 90/45 (60) 11:45 01/30/19 95.7 10:00 01/27/19 30 14:25 Intake and Output 01/29/19 01/29/19 01/30/19 1515:00 23:00 07:00 IntakeIntake Total 510.0000 ml 785.00 ml 1060.00 ml OutputOutput Total 805 ml 473 ml 570 ml BalanceBalance -295.0000 ml 312.00 ml 490.00 ml Exam PE: Gen Appearance: No Apparent Distress HEENT: Normocephalic; on nasal cannula Cardiovascular: Regular rate Abdomen: Soft Extremities: Dry, skin peeling NE: The patient was awake, and sparsely verbal today. Speech disorganized. Unable to track or follow commands. Cranial nerve examination was limited by mental status. Pupils were equal and reactive to light. There was no afferent pupillary defect. Funduscopic examination was limited. Face was grossly symmetric. Tone was normal. Muscle bulk was normal. I did not see fasciculations. The patient localized his UE to noxious stimuli; withdrew his lowers. Coordination and gait testing was limited by mental status. Arm and leg reflexes were within normal limits and symmetric. Gray's sign was absent. Plantar responses were flexor. NEGRA CORONA NP January 30, 2019 15:52
[2019-01-30] MEDS: CASPOFUNGIN 50 MG in SOD CHLORIDE 0.9% 250 ML IVPB SCH (16:15)
--- NOTE | 2019-01-30 17:24 | CONS ---
Assessment/Plan Assessment/Plan Hospital Course (Demo Recall) IMPRESSION: 1. Atrial fibrillation, currently rate controlled.-off systemic anticoagulation due to anemia. ON asa only due to anemia 2. Possible congestive heart failure by chest x-ray, which will be diastolic, acute on chronic by most recent echo with an EF of 60%. 3. Tricuspid regurgitation, moderate by most recent echo. 4. Acute on chronic renal failure-mild worsening 5. Possible pneumonia. 6. History of coronary artery disease, status post coronary artery bypass graft surgery. 7. Dyslipidemia. 8. Rheumatoid arthritis. 9. Groin cellulitis. 10. Anemia-worsening again today requiring transfusions PRBC's.Now post-op s/p endoscopy 11. Diabetes mellitus. 12. Sepsis/leukocytosis 14. abdominal mass 15. Rash-all over body with skin chaffing at this time, probable drug reaction 16. Encephalopathy-ongoing. MRI negative for acute CVA Recc: -Nowin ICU -serial ecg' -serial ecg's -dose IVP digoxin to improve HR control -Continue lasix but follow volume status closely -Continue statin -Currently off abx's/antifungals, f/u cx data -Ongoing GI eval of abd mass -Now on Lovenox/baby asa -ongoing neuro eval Consultation Date/Type/Reason Admit Date/Time Jan 17, 2019 at 15:58 Initial Consult Date 01/18/19 Type of Consult Cardiology Reason for Consultation hypotension Requesting Provider: IVAN AKHTAR MD Date/Time of Note DATE: 01/30/19 TIME: 17:21 Exam/Review of Systems Vital Signs Vitals Vital Signs Date Temp Pulse Resp B/P (MAP) Pulse Ox O2 O2 Flow FiO2 Time Delivery Rate 01/30/19 74 16:00 01/30/19 24 98 Nasal 2.0 15:05 Cannula 01/30/19 90/45 (60) 11:45 01/30/19 95.7 10:00 01/27/19 30 14:25 Intake and Output 01/29/19 01/29/19 01/30/19 1515:00 23:00 07:00 IntakeIntake Total 510.0000 ml 785.00 ml 1060.00 ml OutputOutput Total 805 ml 473 ml 570 ml BalanceBalance -295.0000 ml 312.00 ml 490.00 ml Exam Exam Review of Systems: CONSTITUTIONAL: No fevers, chills. PULMONARY: No sob CARDIOVASCULAR: No chest pain/palpitations GASTROINTESTINAL: No nausea/vomiting. GENITOURINARY: No hematuria/dysuria. MUSCULOSKELETAL: No myagias/arthalgias. PSYCHIATRIC: no documented depression. NEUROLOGIC: confusion but more alert today Constitutional: alert Psych: no complaints Head: normocephalic ENMT: mucosa pink and moist Neck: supple, jvd Respiratory: diminished breath sounds Cardiovascular: regular rate and rhythm Gastrointestinal: soft, non-tender Musculoskeletal: muscle tone (normal) Extremities: edema (none) Neurological: confused, lethargic Skin: other (chaffing and breakdown) Labs Result Diagram: 01/30/19 0420 01/30/19 0420 Results 24hrs Laboratory Tests Test 01/29/19 18:04 01/29/19 21:00 01/30/19 00:44 01/30/19 04:20 Bedside Glucose 147 163 165 White Blood Count 36.5 H Red Blood Count 2.37 L Hemoglobin 7.0 L Hematocrit 21.4 L Mean Corpuscular Volume 90.3 Mean Corpuscular 29.5 Hemoglobin Mean Corpuscular 32.7 Hemoglobin Concent Red Cell Distribution 18.9 H Width Platelet Count 209 Mean Platelet Volume 11.0 H Immature Granulocytes % 2.900 H Neutrophils % Segmented Neutrophils 79 H % (Manual) Band Neutrophils % 18 H (Manual) Lymphocytes % Monocytes % Monocytes % (Manual) 2 Eosinophils % Basophils % Myelocytes % (Manual) 1 H Nucleated Red Blood 4 H Cells % Immature Granulocytes # 1.060 H Neutrophils # Neutrophils # (Manual) 31.2 H Band Neutrophils # 6.5 H Lymphocytes # Monocytes # Monocytes # (Manual) 0.7 Eosinophils # Basophils # Myelocytes # 0.3 H Nucleated Red Blood Cells # Platelet Estimate NORMAL Polychromasia 3+ Hypochromasia 1+ Poikilocytosis 3+ Anisocytosis 2+ Macrocytosis 2+ Target Cells 1+ Ovalocytes 1+ Sodium Level 144 Potassium Level 3.4 L Chloride Level 109 Carbon Dioxide Level 27 Anion Gap 8 Blood Urea Nitrogen 42 H Creatinine 1.43 H Est Glomerular Filtrat Rate mL/min Glucose Level 143 Calcium Level 7.9 L Total Bilirubin 0.2 Direct Bilirubin 0.00 Indirect Bilirubin 0.2 Aspartate Amino 17 Transf (AST/SGOT) Alanine 28 Aminotransferase (ALT/SG PT) Alkaline Phosphatase 77 Total Protein 4.3 L Albumin 2.0 L Globulin 2.30 Albumin/Globulin Ratio 0.86 Thyroid Stimulating 1.080 Hormone (TSH) Random Cortisol 16.2 Test 01/30/19 04:36 01/30/19 08:29 01/30/19 12:46 01/30/19 14:09 Bedside Glucose 167 143 188 Vancomycin Level Trough 20.9 *H Medications Medications Current Medications Lactulose (Enulose) 20 gm DAILY PRN PO CONSTIPATION; Start 01/17/19 at 18:17 Acetaminophen (Tylenol Tab) 650 mg Q4H PRN PO PAIN Last administered on 01/23/19at 22:48; Admin Dose 650 MG; Start 01/17/19 at 18:17 Miscellaneous Information (Pending [facility] Order For Wound Care) This patient ramirez... PRN PRN XX WOUND CARE; Start 01/17/19 at 18:17 Albuterol/ Ipratropium (Duoneb) 3 ml Q2H RESP THERAPY PRN HHN SHORTNESS OF BREATH; Start 01/17/19 at 18:17 Bisacodyl (Dulcolax) 10 mg BID PRN PO CONSTIPATION; Start 01/17/19 at 18:17; Status Hold Folic Acid (Folic Acid) 1 mg DAILY PO Last administered on 01/30/19at 08:35; Admin Dose 1 MG; Start 01/17/19 at 18:17 Latanoprost (Xalatan) 1 drop HS BOTH EYES Last administered on 01/29/19at 20:58; Admin Dose 1 DROP; Start 01/17/19 at 18:17 Nitroglycerin (Nitroglycerin (Sl Tab) 0.4 Mg) 0.4 tab Q5M PRN SL CHEST PAIN; Start 01/17/19 at 18:17 Nystatin (Nystatin Powder) 1 applic BID TOP Last administered on 01/30/19at 09:17; Admin Dose 1 APPLIC; Start 01/17/19 at 18:17 IV Flush (NS 3 ml) 3 ml PER PROTOCOL IV ; Start 01/17/19 at 18:17 Miscellaneous Information 1 ea NOTE XX ; Start 01/17/19 at 18:17 Glucose (Glutose) 15 gm Q15M PRN PO DECREASED GLUCOSE; Start 01/17/19 at 18:17 Glucose (Glutose) 22.5 gm Q15M PRN PO DECREASED GLUCOSE; Start 01/17/19 at 18:17 Dextrose (D50w Syringe) 25 ml Q15M PRN IV DECREASED GLUCOSE; Start 01/17/19 at 18:17 Dextrose (D50w Syringe) 50 ml Q15M PRN IV DECREASED GLUCOSE; Start 01/17/19 at 18:17 Glucagon (Glucagen) 1 mg Q15M PRN IM DECREASED GLUCOSE; Start 01/17/19 at 18:17 Glucose (Glutose) 15 gm Q15M PRN BUCCAL DECREASED GLUCOSE; Start 01/17/19 at 18:17 Zinc Sulfate (Zinc Sulfate) 220 mg DAILY PO Last administered on 01/30/19 08:35; Admin Dose 220 MG; Start 01/17/19 at 18:17 Ascorbic Acid (Vitamin C) 250 mg DAILY PO Last administered on 01/30/19 08:35; Admin Dose 250 MG; Start 01/17/19 at 18:17 Multi-Ingredient Ointment (Aquaphor Oint 52.5 Gm) 1 applic BID TOP Last administered on 01/30/19at 09:17; Admin Dose 1 APPLIC; Start 01/17/19 at 18:17 Aspirin (Aspirin) 81 mg DAILY PO Last administered on 01/30/19 08:35; Admin Dose 81 MG; Start 01/17/19 at 18:17 Bisacodyl (Dulcolax Supp) 10 mg DAILY PRN CA CONSTIPATION; Start 01/17/19 at 18:17 Zinc Acetate/ Diphenhydramine (Benadryl 2% Cr) 1 applic Q6H PRN TOP ITCHING Las t administered on 01/26/19at 07:54; Admin Dose 1 APPLIC; Start 01/19/19 at 16:37 IV Flush (NS 10 ml) 10 ml PRN PRN IV IV PROTOCOL; Start 01/20/19 at 14:30 Cyanocobalamin (Vitamin B12 Inj) 1,000 mcg Q7D IM ; Start 02/03/19 at 09:00 Dextrose 1,000 ml @ 40 mls/hr Q24H IV Last administered on 01/29/19at 20:58; Admin Dose 40 MLS/HR; Start 01/26/19 at 13:00 Metoprolol Tartrate (Lopressor) 5 mg Q4H PRN IV HR>110 Hold SBP<100; Start 01/26/19 at 14:30 Furosemide (Lasix) 40 mg BID DIURETICS IV Last administered on 01/30/19 05:04; Admin Dose 40 MG; Start 01/27/19 at 18:00 Vancomycin HCl (Vanco Iv Per Pharmacy) VANCOMYCIN PER PHARMACY PER PROTOCOL XX ; Start 01/27/19 at 12:00 Norepinephrine 250 ml @ 1.875 mls/ hr TITRATE IV Last administered on 01/30/19 01:30; Admin Dose 11.25 MLS/HR; Start 01/27/19 at 12:30 Methylprednisolone Sodium Succinate (Solu-Medrol) 40 mg Q8 IV Last administered on 01/30/19 14:44; Admin Dose 40 MG; Start 01/27/19 at 14:00 Enoxaparin Sodium (Lovenox) 60 mg DAILY SC Last administered on 01/30/19 08:29; Admin Dose 60 MG; Start 01/28/19 at 09:00 Lorazepam (Ativan) 1 mg Q2 PRN IV SEIZURES Last administered on 01/28/19 19:29; Admin Dose 1 MG; Start 01/27/19 at 14:00 Aztreonam 50 ml @ 100 mls/hr Q12 IVPB Last administered on 01/30/19 09:02; Admin Dose 100 MLS/HR; Start 01/27/19 at 16:30 Metronidazole 100 ml @ 100 mls/hr Q8 IVPB Last administered on 01/30/19 14:59; Admin Dose 100 MLS/HR; Start 01/27/19 at 15:00 Atorvastatin Calcium (Lipitor) 40 mg QHS NGT Last administered on 01/29/19 20:59; Admin Dose 40 MG; Start 01/28/19 at 21:00 Docusate Sodium (Colace Liquid Cup) 100 mg BID NGT ; Start 01/27/19 at 22:00; Status Hold Terazosin HCl (Hytrin) 10 mg HS NGT ; Start 01/28/19 at 21:00 Levetiracetam 100 ml @ 400 mls/hr Q12 IVPB Last administered on 01/30/19 08:38; Admin Dose 400 MLS/HR; Start 01/28/19 at 09:00 Levothyroxine Sodium (Synthroid) 125 mcg BEFORE BREAKFAST NGT Last administered on 01/30/19 06:10; Admin Dose 125 MCG; Start 01/28/19 at 07:00 Ferrous Sulfate (Feosol Liquid Cup) 300 mg WITH MEALS GTB Last administered on 01/30/19 12:47; Admin Dose 300 MG; Start 01/28/19 at 11:30 Multivitamins (Multivitamin) 30 ml DAILY GTB Last administered on 01/30/19 08:35; Admin Dose 30 ML; Start 01/28/19 at 11:00 Lansoprazole (Prevacid) 30 mg DAILY@06 NGT Last administered on 01/30/19 05:05; Admin Dose 30 MG; Start 01/28/19 at 11:00 Diagnostic Test (Pha) (Accu-Chek) 1 ea Q4 XX Last administered on 01/30/19 09:18; Admin Dose 1 EA; Start 01/28/19 at 13:00 Caspofungin 50 mg/ Sodium Chloride 250 ml @ 250 mls/hr Q24H IVPB Last administered on 01/30/19 16:15; Admin Dose 250 MLS/HR; Start 01/29/19 at 15:00 Nystatin/ Triamcinolone Acetonide (Mycolog Oint) 1 applic BID TOP Last administered on 01/30/19 09:17; Admin Dose 1 APPLIC; Start 01/28/19 at 22:30 Insulin Aspart (Novolog Insulin Pen) NOVOLOG *MILD* ALGORI... Q4 SC Last administered on 01/30/19 12:52; Admin Dose 2 UNIT; Start 01/29/19 at 05:00 Albuterol/ Ipratropium (Duoneb) 3 ml Q6HWA RESP THERAPY HHN Last administered on 01/30/19 15:04; Admin Dose 3 ML; Start 01/29/19 at 14:00 Epoetin Dae-epbx (RETACRIT(non-esrd)) 40,000 unit Mo@1700 SC ; Start 02/03/19 at 17:00 Potassium Chloride (Potassium Chloride Pwd/Soln) 20 meq BID PO Last administered on 01/30/19 12:58; Admin Dose 20 MEQ; Start 01/30/19 at 13:00; Stop 01/30/19 at 21:01 Mupirocin (Bactroban) 1 applic BID TOP ; Start 01/30/19 at 15:26; Stop 02/09/19 at 15:25 Vancomycin HCl 250 ml @ 125 mls/hr Q48H IVPB ; Start 01/31/19 at 11:00 Tobramycin Sulfate/Sodium Chloride (Nilesh Inhal) 300 mg BID RESP THERAPY NEB ; Start 01/30/19 at 20:00 MARJORIE JAIN January 30, 2019 17:24
--- NOTE | 2019-01-30 18:19 | CONS ---
DATE OF ADMISSION: 01/17/2019 DATE OF CONSULTATION: 01/29/2019 Dr. Akhtar, I saw Brandin Mcintyre on 01/29/2019 in the ICU for evaluation of a rash that initially began approximately 3 weeks ago. Daughter relates that her father had been doing fairly well, but then had developed temperature, some mild altered status that she thought may have been from the oxycodone he has been on for years since he had back procedure in [place]. They did go to the emergency room and was told that he had pneumonia. Also atrial fibrillation was detected and therefore, his Coumadin and aspirin were changed to Eliquis. His stay was approximately 1 week. The daughter does have a photo that shows on 01/04/2019 that he developed macular eruption of his back with small pustules particularly along the flanks. Shortly thereafter, he had been given 3 antibiotics to take at home on approximately to fifth day. Now, he developed the rash but swelling of his scrotum. He also was becoming more confused and had a temperature of 102 and had to be readmitted. He also was worked up for a possible stroke. However an MRI taken 2 days ago was mostly unremarkable. He does have multiple comorbidities. He does have what felt to be anemia of chronic disease and had an EGD and colonoscopy by Dr. Frost on 01/09/2019. 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 He has a history of severe gastritis, hemorrhoids, hiatal hernia, atrial fibrillation, COPD, hypertension, hypothyroidism, history of bilateral groin cellulitis, rheumatoid arthritis, diabetes, PVD, CHF, DJD. He evidently has not had any oral lesions nor has he had any urethral lesions but has been noticed in the last several days that he has increased exudate of his eyes. He does have a history of a very poor vision particularly in his left eye. He is on prednisone 40 mg 3 times a day IV. The rash has gone into a peeling desquamative stage. CURRENT MEDICATIONS: Include: 1. Levetiracetam. 2. Vancomycin. ALLERGIES: HE IS ALLERGIC TO: 1. SULFA DRUGS. 2. PENICILLIN. THE DAUGHTER RECALLS THAT IN THE DISTANT PAST HE HAD A FAIRLY SEVERE BODY RASH THAT WAS ATTRIBUTED TO POSSIBLY PENICILLIN. LABORATORY DATA: Show an elevation of his WBC that were 12.9 on 01/27/2019 and now 36.5. His most recent H and H has a hemoglobin of 7 and hematocrit of 21. He has normal platelet count. He does have increased immature granulocytes; however, his eosinophils are normal. PHYSICAL EXAMINATION: VITAL SIGNS: His rectal temperature is 95.7, pulse 85. Vital signs are stable. He is receiving a supplemental nasal oxygen. HEENT: He does have exudate particularly on the inner aspect of his canthi of his eyes. No oral lesions were visualized. NECK: He does not have cervical adenopathy. SKIN: He has hyperpigmented scaling and crusting particularly along his hair line and extending into his scalp. He has generalized faint erythema with areas of desquamation as well as hyperkeratosis including on his lower legs. GENITOURINARY: He has a mild scrotal edema. No apparent urethral lesions were noted. EXTREMITIES: He does have edema on both of his arms as well as of his legs. ASSESSMENT: Clinically, I agree this is suspicious for drug eruption. At the time of this dictation, we were checking the antibiotics for which he was taking after his first discharge and contacting the [facility] to confirm this. However, the clinical picture is NOT compatible with Merrill-Serafin syndrome/toxic epidermal necrolysis. The photo from his daughter shared is from 01/04/2019 suggests features of acute generalized exanthematous pustulosis. The patient on both admissions received vancomycin then linear IgA would be in the differential although this does not have features that would suggest this condition. I agree that the aztreonam is unlikely to cross react to penicillin. Keppra, is less likely to be a concern than other anti-seizure medication such as Lamictal. In the past, it appears he has been on allopurinol which has high incidents of drug reactions. It is not clear when the last time he took allopurinol. Caspofungin has been reported to have drug reactions including Merrill-Serafin syndrome and toxic epidermal necrolysis and may be worthwhile to check a [id number]-[id number] and galactomannan (if not already done so) and if these are negative and he is clinically doing well then perhaps this could be discontinued. Anyhow for further guidance, a 4 mm punch biopsy was taken from his right forearm and is pending at this time. I also advised bacterial culture of the exudate of his eyelids and consider ophthalmology evaluation as well. Dictated By: MICHELLE MEJIA/SUZIE Conf#: [id number] [facility]#: [id number] CC: IVAN AKHTAR; LILY LAMBERT MD;*EndCC* MTDD
[2019-01-30] MEDS: TOBRAMYCIN/0.25NS 300 MG/5 ML INHAL NEB SCH (20:46)
--- NOTE | 2019-01-30 20:49 | CONS ---
Assessment/Plan Assessment/Plan Hospital Course (Demo Recall) 88 [facility] and febrile Interval hx: Tolerating tube feeds. No signs of GI bleeding. Levophed gtt. No abnormal EEG activity per RN. WBC 36 1. Severe anemia likely due to chronic disease, last work up while admitted to [facility] about a week ago was neg for GI bleeding, including EGD/colon which was done -s/p EGD and colonoscopy by Dr Frost 01/09/19 which didn't find an obvious GI etiology to explain anemia. AVM or a small lesion could be missed due to poor prep. Pt likely needs capsule endoscopy -Neg fob, elevate retic, Low iron, tibc, [place] sat, [place] 12089 2. Cystic lesion along pancreas body - 4.3 cm cystic lesion along the pancreas body, enlarged since 10/10/2012 (previously 2.4 cm). 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 -CEA wnl 3. Severe gastritis 4. Hemorrhoids 5. Hital hernia 6. A fib, -eliquis was stopped 01/06 during previous admission, on ASA 7. COPD 8. HTN 9. Hypothyroidism 10. Bilateral groin cellulitis 11. Rheumatoid arthritis. 12. Diabetes mellitus. 13. Peripheral vascular disease. 14. CHF 15. 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 Sepsis secondary to pneumonia Plan: LP ordered per neuro Supportive ICU care Continue tube feeds, monitor residuals Pt will need outpatient EUS to evaluate pancreatic mass Recommend capsule endoscopy as outpatient GI prophylaxis: protonix QD Pain management Pt examined and plan of care discussed with Dr. Frost Consultation Date/Type/Reason Admit Date/Time Jan 17, 2019 at 15:58 Initial Consult Date 01/18/19 Requesting Provider: IVAN AKHTAR MD Date/Time of Note DATE: 01/30/19 TIME: 20:45 Exam/Review of Systems Exam Vitals Vital Signs Date Temp Pulse Resp B/P (MAP) Pulse Ox O2 O2 Flow FiO2 Time Delivery Rate 01/30/19 79 19 141/104 100 19:15 (116) 01/30/19 2.0 27 19:12 01/30/19 Nasal 19:00 Cannula 01/30/19 95.7 16:00 Intake and Output 01/29/19 01/29/19 01/30/19 1515:00 23:00 07:00 IntakeIntake Total 510.0000 ml 785.00 ml 1060.00 ml OutputOutput Total 805 ml 473 ml 570 ml BalanceBalance -295.0000 ml 312.00 ml 490.00 ml Constitutional: alert Psych: no complaints Eyes: PERRL Respiratory: normal air movement, diminished breath sounds Cardiovascular: regular rate and rhythm Gastrointestinal: soft, non-tender Results Result Diagram: 01/30/19 0420 01/30/19 0420 Results 24hrs Laboratory Tests Test 01/29/19 21:00 01/30/19 00:44 01/30/19 04:20 01/30/19 04:36 Bedside Glucose 163 165 167 White Blood Count 36.5 H Red Blood Count 2.37 L Hemoglobin 7.0 L Hematocrit 21.4 L Mean Corpuscular Volume 90.3 Mean Corpuscular 29.5 Hemoglobin Mean Corpuscular 32.7 Hemoglobin Concent Red Cell Distribution 18.9 H Width Platelet Count 209 Mean Platelet Volume 11.0 H Immature Granulocytes % 2.900 H Neutrophils % Segmented Neutrophils 79 H % (Manual) Band Neutrophils % 18 H (Manual) Lymphocytes % Monocytes % Monocytes % (Manual) 2 Eosinophils % Basophils % Myelocytes % (Manual) 1 H Nucleated Red Blood 4 H Cells % Immature Granulocytes # 1.060 H Neutrophils # Neutrophils # (Manual) 31.2 H Band Neutrophils # 6.5 H Lymphocytes # Monocytes # Monocytes # (Manual) 0.7 Eosinophils # Basophils # Myelocytes # 0.3 H Nucleated Red Blood Cells # Platelet Estimate NORMAL Polychromasia 3+ Hypochromasia 1+ Poikilocytosis 3+ Anisocytosis 2+ Macrocytosis 2+ Target Cells 1+ Ovalocytes 1+ Sodium Level 144 Potassium Level 3.4 L Chloride Level 109 Carbon Dioxide Level 27 Anion Gap 8 Blood Urea Nitrogen 42 H Creatinine 1.43 H Est Glomerular Filtrat Rate mL/min Glucose Level 143 Calcium Level 7.9 L Total Bilirubin 0.2 Direct Bilirubin 0.00 Indirect Bilirubin 0.2 Aspartate Amino 17 Transf (AST/SGOT) Alanine 28 Aminotransferase (ALT/SG PT) Alkaline Phosphatase 77 Total Protein 4.3 L Albumin 2.0 L Globulin 2.30 Albumin/Globulin Ratio 0.86 Thyroid Stimulating 1.080 Hormone (TSH) Random Cortisol 16.2 Test 01/30/19 08:29 01/30/19 12:46 01/30/19 14:09 01/30/19 18:17 Bedside Glucose 143 188 198 Vancomycin Level Trough 20.9 *H Medications Medication Current Medications Lactulose (Enulose) 20 gm DAILY PRN PO CONSTIPATION; Start 01/17/19 at 18:17 Acetaminophen (Tylenol Tab) 650 mg Q4H PRN PO PAIN Last administered on 01/23/19at 22:48; Admin Dose 650 MG; Start 01/17/19 at 18:17 Miscellaneous Information (Pending [facility] Order For Wound Care) This patient ramirez... PRN PRN XX WOUND CARE; Start 01/17/19 at 18:17 Albuterol/ Ipratropium (Duoneb) 3 ml Q2H RESP THERAPY PRN HHN SHORTNESS OF BREATH; Start 01/17/19 at 18:17 Bisacodyl (Dulcolax) 10 mg BID PRN PO CONSTIPATION; Start 01/17/19 at 18:17; Status Hold Folic Acid (Folic Acid) 1 mg DAILY PO Last administered on 01/30/19at 08:35; Admin Dose 1 MG; Start 01/17/19 at 18:17 Latanoprost (Xalatan) 1 drop HS BOTH EYES Last administered on 01/29/19at 20:58; Admin Dose 1 DROP; Start 01/17/19 at 18:17 Nitroglycerin (Nitroglycerin (Sl Tab) 0.4 Mg) 0.4 tab Q5M PRN SL CHEST PAIN; Start 01/17/19 at 18:17 Nystatin (Nystatin Powder) 1 applic BID TOP Last administered on 01/30/19at 09:17; Admin Dose 1 APPLIC; Start 01/17/19 at 18:17 IV Flush (NS 3 ml) 3 ml PER PROTOCOL IV ; Start 01/17/19 at 18:17 Miscellaneous Information 1 ea NOTE XX ; Start 01/17/19 at 18:17 Glucose (Glutose) 15 gm Q15M PRN PO DECREASED GLUCOSE; Start 01/17/19 at 18:17 Glucose (Glutose) 22.5 gm Q15M PRN PO DECREASED GLUCOSE; Start 01/17/19 at 18:17 Dextrose (D50w Syringe) 25 ml Q15M PRN IV DECREASED GLUCOSE; Start 01/17/19 at 18:17 Dextrose (D50w Syringe) 50 ml Q15M PRN IV DECREASED GLUCOSE; Start 01/17/19 at 18:17 Glucagon (Glucagen) 1 mg Q15M PRN IM DECREASED GLUCOSE; Start 01/17/19 at 18:17 Glucose (Glutose) 15 gm Q15M PRN BUCCAL DECREASED GLUCOSE; Start 01/17/19 at 1 8:17 Zinc Sulfate (Zinc Sulfate) 220 mg DAILY PO Last administered on 01/30/19 08:35; Admin Dose 220 MG; Start 01/17/19 at 18:17 Ascorbic Acid (Vitamin C) 250 mg DAILY PO Last administered on 01/30/19 08:35; Admin Dose 250 MG; Start 01/17/19 at 18:17 Multi-Ingredient Ointment (Aquaphor Oint 52.5 Gm) 1 applic BID TOP Last administered on 01/30/19 09:17; Admin Dose 1 APPLIC; Start 01/17/19 at 18:17 Aspirin (Aspirin) 81 mg DAILY PO Last administered on 01/30/19 08:35; Admin Dose 81 MG; Start 01/17/19 at 18:17 Bisacodyl (Dulcolax Supp) 10 mg DAILY PRN SC CONSTIPATION; Start 01/17/19 at 18:17 Zinc Acetate/ Diphenhydramine (Benadryl 2% Cr) 1 applic Q6H PRN TOP ITCHING Last administered on 01/26/19 07:54; Admin Dose 1 APPLIC; Start 01/19/19 at 16:37 IV Flush (NS 10 ml) 10 ml PRN PRN IV IV PROTOCOL; Start 01/20/19 at 14:30 Cyanocobalamin (Vitamin B12 Inj) 1,000 mcg Q7D IM ; Start 02/03/19 at 09:00 Dextrose 1,000 ml @ 40 mls/hr Q24H IV Last administered on 01/29/19at 20:58; Admin Dose 40 MLS/HR; Start 01/26/19 at 13:00 Metoprolol Tartrate (Lopressor) 5 mg Q4H PRN IV HR>110 Hold SBP<100; Start 01/26/19 at 14:30 Furosemide (Lasix) 40 mg BID DIURETICS IV Last administered on 01/30/19 18:09; Admin Dose 40 MG; Start 01/27/19 at 18:00 Vancomycin HCl (Vanco Iv Per Pharmacy) VANCOMYCIN PER PHARMACY PER PROTOCOL XX ; Start 01/27/19 at 12:00 Norepinephrine 250 ml @ 1.875 mls/ hr TITRATE IV Last administered on 01/30/19 01:30; Admin Dose 11.25 MLS/HR; Start 01/27/19 at 12:30 Methylprednisolone Sodium Succinate (Solu-Medrol) 40 mg Q8 IV Last administered on 01/30/19 14:44; Admin Dose 40 MG; Start 01/27/19 at 14:00 Enoxaparin Sodium (Lovenox) 60 mg DAILY SC Last administered on 01/30/19 08:29; Admin Dose 60 MG; Start 01/28/19 at 09:00 Lorazepam (Ativan) 1 mg Q2 PRN IV SEIZURES Last administered on 01/28/19 19:29; Admin Dose 1 MG; Start 01/27/19 at 14:00 Aztreonam 50 ml @ 100 mls/hr Q12 IVPB Last administered on 01/30/19 09:02; Admin Dose 100 MLS/HR; Start 01/27/19 at 16:30 Metronidazole 100 ml @ 100 mls/hr Q8 IVPB Last administered on 01/30/19 14:59; Admin Dose 100 MLS/HR; Start 01/27/19 at 15:00 Atorvastatin Calcium (Lipitor) 40 mg QHS NGT Last administered on 01/29/19 20: 59; Admin Dose 40 MG; Start 01/28/19 at 21:00 Docusate Sodium (Colace Liquid Cup) 100 mg BID NGT ; Start 01/27/19 at 22:00; Status Hold Terazosin HCl (Hytrin) 10 mg HS NGT ; Start 01/28/19 at 21:00 Levetiracetam 100 ml @ 400 mls/hr Q12 IVPB Last administered on 01/30/19 08:38; Admin Dose 400 MLS/HR; Start 01/28/19 at 09:00 Levothyroxine Sodium (Synthroid) 125 mcg BEFORE BREAKFAST NGT Last adminis tered on 01/30/19 06:10; Admin Dose 125 MCG; Start 01/28/19 at 07:00 Ferrous Sulfate (Feosol Liquid Cup) 300 mg WITH MEALS GTB Last administered on 01/30/19 18:09; Admin Dose 300 MG; Start 01/28/19 at 11:30 Multivitamins (Multivitamin) 30 ml DAILY GTB Last administered on 01/30/19 08:35; Admin Dose 30 ML; Start 01/28/19 at 11:00 Lansoprazole (Prevacid) 30 mg DAILY@06 NGT Last administered on 01/30/19 05:05; Admin Dose 30 MG; Start 01/28/19 at 11:00 Diagnostic Test (Pha) (Accu-Chek) 1 ea Q4 XX Last administered on 01/30/19 18:17; Admin Dose 1 EA; Start 01/28/19 at 13:00 Caspofungin 50 mg/ Sodium Chloride 250 ml @ 250 mls/hr Q24H IVPB Last administered on 01/30/19 16:15; Admin Dose 250 MLS/HR; Start 01/29/19 at 15:00 Nystatin/ Triamcinolone Acetonide (Mycolog Oint) 1 applic BID TOP Last ad ministered on 01/30/19 09:17; Admin Dose 1 APPLIC; Start 01/28/19 at 22:30 Insulin Aspart (Novolog Insulin Pen) NOVOLOG *MILD* ALGORI... Q4 SC Last administered on 01/30/19 18:40; Admin Dose 2 UNIT; Start 01/29/19 at 05:00 Albuterol/ Ipratropium (Duoneb) 3 ml Q6HWA RESP THERAPY HHN Last administered on 01/30/19 15:04; Admin Dose 3 ML; Start 01/29/19 at 14:00 Epoetin Dae-epbx (RETACRIT(non-esrd)) 40,000 unit Mo@1700 SC ; Start 02/03/19 at 17:00 Potassium Chloride (Potassium Chloride Pwd/Soln) 20 meq BID PO Last administered on 01/30/19 12:58; Admin Dose 20 MEQ; Start 01/30/19 at 13:00; Stop 01/30/19 at 21:01 Mupirocin (Bactroban) 1 applic BID TOP ; Start 01/30/19 at 15:26; Stop 02/09/19 at 15:25 Vancomycin HCl 250 ml @ 125 mls/hr Q48H IVPB ; Start 01/31/19 at 11:00 Tobramycin Sulfate/Sodium Chloride (Nilesh Inhal) 300 mg BID RESP THERAPY NEB ; Start 01/30/19 at 20:00 GISELLA VENTURA January 30, 2019 20:49
[2019-01-30] MEDS: ATORVASTATIN 40 MG TAB NGT SCH (21:28)
[2019-01-30] MEDS: TERAZOSIN 5 MG CAP NGT SCH (21:29)
[2019-01-30] MEDS: LATANOPROST 0.005% 2.5 ML OPH BOTH EYES SCH (21:31)
[2019-01-31] VITALS (77 sets, daily range): BP systolic 79–181; BP diastolic 47–150; PULSE 70–99; RESP 15–39
[2019-01-31] MEDS: INSULIN ASPART [NOVOLOG] 3 ML PEN SC SCH ×6 (01:33→21:14)
[2019-01-31] MEDS: ACCU-CHEK XX SCH ×6 (01:34→21:19)
[2019-01-31] MEDS: METHYLPREDNISOLONE 40 MG INJ IV SCH ×3 (05:39→21:16)
[2019-01-31] MEDS: LANSOPRAZOLE 30 MG CAP NGT SCH (05:39)
[2019-01-31] MEDS: FUROSEMIDE 40 MG INJ IV SCH ×2 (05:39→17:08)
[2019-01-31] MEDS: metroNIDAZOLE 500 MG/NS (PMX) 100 ML IVPB SCH ×3 (05:40→21:17)
[2019-01-31] MEDS: NORepinephrine 8MG/250 ML (PMX 250 ML IV SCH (05:43)
[2019-01-31] MEDS: MULTIVITAMINS 30 ML CUP GTB SCH (08:19)
[2019-01-31] MEDS: FOLIC ACID 1 MG TAB PO SCH (08:19)
[2019-01-31] MEDS: LEVOTHYROXINE 125 MCG TAB NGT SCH (08:19)
[2019-01-31] MEDS: POTASSIUM CHLORIDE 100 ML IVPB SCH ×2 (08:19→11:48)
[2019-01-31] MEDS: ASCORBIC ACID 250 MG TAB PO SCH (08:19)
[2019-01-31] MEDS: FERROUS SULFATE 60 MG/ML 5ML CUP GTB SCH ×3 (08:19→16:50)
[2019-01-31] MEDS: ZINC SULFATE 220 MG CAP PO SCH (08:19)
[2019-01-31] MEDS: ASPIRIN 81 MG TAB PO SCH (08:20)
[2019-01-31] MEDS: BALSAM PERU/CASTOR OIL 60 GM TUBE TOP SCH ×2 (08:20→21:18)
[2019-01-31] MEDS: NYSTATIN 30 GM POWDER BTL TOP SCH ×2 (08:20→21:18)
[2019-01-31] MEDS: AQUAPHOR 52.5 GM OINT TOP SCH ×2 (08:20→21:18)
[2019-01-31] MEDS: MUPIROCIN 2% 22 GM OINT TOP SCH ×2 (08:21→21:19)
[2019-01-31] MEDS: LEVETIRACETAM 500 MG (PMX) 100 ML IVPB SCH ×2 (08:21→21:17)
[2019-01-31] MEDS: NYSTATIN/TRIAMCINOLONE 15 GM OINT TOP SCH ×2 (08:21→21:18)
[2019-01-31] MEDS: AZTREONAM 1 GM/NS (PMX) 50 ML IVPB SCH ×2 (08:21→21:17)
--- NOTE | 2019-01-31 08:57 | PN ---
Date/Time of Note Date/Time of Note DATE: 01/31/19 TIME: 08:57 Assessment/Plan VTE Prophylaxis Risk score (from [facility] [place]0 risk: 10 SCD applied (from [facility] [place]): No SCD contraindicated: low risk/ambulating Pharmacological prophylaxis: NA/contraindicated Pharm contraindication: low risk/ambulating Lines/Catheters IV Catheter Type (from [facility] Central Line Central line still needed: Yes Urinary Cath still in place: Yes Reason Cath still needed: urinary retention Assessment/Plan Hospital Course Hospital Course # AMS likely due to stroke vs seizure, 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 Septic shock now on pressors likely secondary to pneumonia on levophed # Hypothermia ? sepsis #. Severe anemia #. Chronic renal failure likely secondary to sepsis, improved, normal creatinine #. Hypertension.currently hypotensive # Impending respiratory failure # Anasarca # Hyperlipidemia. # Hypothyroidism. # Bilateral groin cellulitis more likely associated with mateus, patches in groin and axilla bilaterally. skin peeling # History of rheumatoid arthritis with joint deformities. # Diabetes type 2. # Hx of CABGx2, carotid stent #. Peripheral vascular disease. #. Chronic a.fib, now on lovenox #. right arm edema # Neoplasm per CT abdomen. 4.3 cm cystic lesion along the pancreas body, enlarged since 10/10/2012 (previously 2.4 cm). 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 # Possible allergic skin reaction ? drug present since admission> improved s/p biopsy/ Amrik Betancourt Plan - LP per neuro ordered -titrae down levophed -2 units prbc with lasix in between - cw aztreonam/caspofngin, sputum + E coli? drug reaction - dc d10, free water flushes - replete k - fu Neuro recs and neuro checks ? LP -on ASA, statin - NG -cw nebs/ solumedrol 40 iv q 8 - GI and DVT prophylaxsis -oncology consul dr Lorenzo aware:he said Ca 19-9 is negative indicating unlikely malignant. This may be a pseudocyst or a precancerous pancreatic lesion. It has been growing in size but patient is asymptomatic. EUS with biopsy is recommended and can either be done inpatient or outpatient setting. The patient at this time is unlikely a candidate for a Whipple surgery however. -skin care - s/p skin biopsy pending results Result Diagram: 01/31/19 0545 01/31/19 0545 Results 24hrs Laboratory Tests Test 01/30/19 12:46 01/30/19 14:09 01/30/19 18:17 01/30/19 21:34 Bedside Glucose 188 198 211 Vancomycin Level 20.9 *H Trough Test 01/31/19 01:30 01/31/19 05:35 01/31/19 05:45 01/31/19 08:38 Bedside Glucose 203 197 252 H White Blood Count 31.4 H Red Blood Count 2.16 L Hemoglobin 6.4 *L Hematocrit 19.9 L Mean Corpuscular 92.1 Volume Mean Corpuscular 29.6 Hemoglobin Mean Corpuscular 32.2 Hemoglobin Concent Red Cell 18.9 H Distribution Width Platelet Count 170 Mean Platelet Volume 11.0 H Immature 3.700 H Granulocytes % Neutrophils % Segmented 82 H Neutrophils % (Manual) Band Neutrophils % 11 H (Manual) Lymphocytes % Lymphocytes % 4 L (Manual) Monocytes % Monocytes % (Manual) 2 Eosinophils % Basophils % Promyelocytes % 1 H (Manual) Nucleated Red Blood 3 H Cells % Immature 1.150 H Granulocytes # Neutrophils # Neutrophils # 26.8 H (Manual) Band Neutrophils # 3.4 H Lymphocytes (Manual) 1.2 Lymphocytes # Monocytes # Monocytes # (Manual) 0.6 Eosinophils # Basophils # Promyelocytes # 0.3 H Nucleated Red Blood Cells # Platelet Estimate NORMAL Polychromasia 3+ Hypochromasia 1+ Poikilocytosis 3+ Anisocytosis 2+ Microcytosis 1+ Macrocytosis 2+ Spherocytes 1+ Target Cells 1+ Sodium Level 149 H Potassium Level 3.0 L Chloride Level 112 H Carbon Dioxide Level 28 Anion Gap 9 Blood Urea Nitrogen 50 H Creatinine 1.46 H Est Glomerular Filtrat Rate mL/min Glucose Level 166 Calcium Level 7.6 L Phosphorus Level 2.9 Magnesium Level 1.7 Total Bilirubin 0.2 Direct Bilirubin 0.00 Indirect Bilirubin 0.2 Aspartate Amino 31 # Transf (AST/SGOT) Alanine 31 Aminotransferase (AL T/SGPT) Alkaline Phosphatase 100 Total Protein 4.5 L Albumin 2.0 L Globulin 2.50 Albumin/Globulin 0.80 Ratio Subjective 24 Hr Interval Summary Free Text/Dictation Pt more awake, responds to questions seen by dermatology and biopsy done getting 2 units prbc today Exam/Review of Systems Exam Vitals Vital Signs Date Temp Pulse Resp B/P (MAP) Pulse Ox O2 O2 Flow FiO2 Time Delivery Rate 01/31/19 83 08:00 01/31/19 20 88/60 (69) 100 Nasal 06:00 Cannula 01/31/19 97.8 04:00 01/31/19 2.0 27 02:48 Intake and Output 01/30/19 01/30/19 01/31/19 1515:00 23:00 07:00 IntakeIntake Total 885.00 ml 1026.82 ml 916.775 ml OutputOutput Total 810 ml 553 ml 501 ml BalanceBalance 75.00 ml 473.82 ml 415.775 ml Exam opens eyes, answers few questions rt pupil sluggish, left pupil sluggish Constitutional: frail Respiratory: diminished breath sounds Cardiovascular: irregular rhythm Gastrointestinal: soft Genitourinary - Male: other (rinaldi) Skin: diffuse skin rash hyperpigemented, sloughing of skin Results Results 24hrs Laboratory Tests Test 01/30/19 12:46 01/30/19 14:09 01/30/19 18:17 01/30/19 21:34 Bedside Glucose 188 198 211 Vancomycin Level 20.9 *H Trough Test 01/31/19 01:30 01/31/19 05:35 01/31/19 05:45 01/31/19 08:38 Bedside Glucose 203 197 252 H White Blood Count 31.4 H Red Blood Count 2.16 L Hemoglobin 6.4 *L Hematocrit 19.9 L Mean Corpuscular 92.1 Volume Mean Corpuscular 29.6 Hemoglobin Mean Corpuscular 32.2 Hemoglobin Concent Red Cell 18.9 H Distribution Width Platelet Count 170 Mean Platelet Volume 11.0 H Immature 3.700 H Granulocytes % Neutrophils % Segmented 82 H Neutrophils % (Manual) Band Neutrophils % 11 H (Manual) Lymphocytes % Lymphocytes % 4 L (Manual) Monocytes % Monocytes % (Manual) 2 Eosinophils % Basophils % Promyelocytes % 1 H (Manual) Nucleated Red Blood 3 H Cells % Immature 1.150 H Granulocytes # Neutrophils # Neutrophils # 26.8 H (Manual) Band Neutrophils # 3.4 H Lymphocytes (Manual) 1.2 Lymphocytes # Monocytes # Monocytes # (Manual) 0.6 Eosinophils # Basophils # Promyelocytes # 0.3 H Nucleated Red Blood Cells # Platelet Estimate NORMAL Polychromasia 3+ Hypochromasia 1+ Poikilocytosis 3+ Anisocytosis 2+ Microcytosis 1+ Macrocytosis 2+ Spherocytes 1+ Target Cells 1+ Sodium Level 149 H Potassium Level 3.0 L Chloride Level 112 H Carbon Dioxide Level 28 Anion Gap 9 Blood Urea Nitrogen 50 H Creatinine 1.46 H Est Glomerular Filtrat Rate mL/min Glucose Level 166 Calcium Level 7.6 L Phosphorus Level 2.9 Magnesium Level 1.7 Total Bilirubin 0.2 Direct Bilirubin 0.00 Indirect Bilirubin 0.2 Aspartate Amino 31 # Transf (AST/SGOT) Alanine 31 Aminotransferase (AL T/SGPT) Alkaline Phosphatase 100 Total Protein 4.5 L Albumin 2.0 L Globulin 2.50 Albumin/Globulin 0.80 Ratio Medications Medication Current Medications Lactulose (Enulose) 20 gm DAILY PRN PO CONSTIPATION; Start 01/17/19 at 18:17 Acetaminophen (Tylenol Tab) 650 mg Q4H PRN PO PAIN Last administered on 01/23/19 22:48; Admin Dose 650 MG; Start 01/17/19 at 18:17 Miscellaneous [facility] This patient ramirez... PRN PRN XX WOUND CARE; Start 01/17/19 at 18:17 Albuterol/ Ipratropium (Duoneb) 3 ml Q2H RESP THERAPY PRN HHN SHORTNESS OF BREATH; Start 01/17/19 at 18:17 Bisacodyl (Dulcolax) 10 mg BID PRN PO CONSTIPATION; Start 01/17/19 at 18:17; Status Hold Folic Acid (Folic Acid) 1 mg DAILY PO Last administered on 01/31/19 08:19; Admin Dose 1 MG; Start 01/17/19 at 18:17 Latanoprost (Xalatan) 1 drop HS BOTH EYES Last administered on 01/30/19 21:31; Admin Dose 1 DROP; Start 01/17/19 at 18:17 Nitroglycerin (Nitroglycerin (Sl Tab) 0.4 Mg) 0.4 tab Q5M PRN SL CHEST PAIN; Start 01/17/19 at 18:17 Nystatin (Nystatin Powder) 1 applic BID TOP Last administered on 01/31/19 08:20; Admin Dose 1 APPLIC; Start 01/17/19 at 18:17 IV Flush (NS 3 ml) 3 ml PER PROTOCOL IV ; Start 01/17/19 at 18:17 Miscellaneous Information 1 ea NOTE XX ; Start 01/17/19 at 18:17 Glucose (Glutose) 15 gm Q15M PRN PO DECREASED GLUCOSE; Start 01/17/19 at 18:17 Glucose (Glutose) 22.5 gm Q15M PRN PO DECREASED GLUCOSE; Start 01/17/19 at 18:17 Dextrose (D50w Syringe) 25 ml Q15M PRN IV DECREASED GLUCOSE; Start 01/17/19 at 18:17 Dextrose (D50w Syringe) 50 ml Q15M PRN IV DECREASED GLUCOSE; Start 01/17/19 at 18:17 Glucagon (Glucagen) 1 mg Q15M PRN IM DECREASED GLUCOSE; Start 01/17/19 at 18:17 Glucose (Glutose) 15 gm Q15M PRN BUCCAL DECREASED GLUCOSE; Start 01/17/19 at 18:17 Zinc Sulfate (Zinc Sulfate) 220 mg DAILY PO Last administered on 01/31/19 08:19; Admin Dose 220 MG; Start 01/17/19 at 18:17 Ascorbic Acid (Vitamin C) 250 mg DAILY PO Last administered on 01/31/19 08:19; Admin Dose 250 MG; Start 01/17/19 at 18:17 Multi-Ingredient Ointment (Aquaphor Oint 52.5 Gm) 1 applic BID TOP Last administered on 01/31/19at 08:20; Admin Dose 1 APPLIC; Start 01/17/19 at 18:17 Aspirin (Aspirin) 81 mg DAILY PO Last administered on 01/31/19 08:20; Admin Dose 81 MG; Start 01/17/19 at 18:17 Bisacodyl (Dulcolax Supp) 10 mg DAILY PRN [place] CONSTIPATION; Start 01/17/19 at 18:17 Zinc Acetate/ Diphenhydramine (Benadryl 2% Cr) 1 applic Q6H PRN TOP ITCHING Last administered on 01/26/19at 07:54; Admin Dose 1 APPLIC; Start 01/19/19 at 16:37 IV Flush (NS 10 ml) 10 ml PRN PRN IV IV PROTOCOL; Start 01/20/19 at 14:30 Cyanocobalamin (Vitamin B12 Inj) 1,000 mcg Q7D IM ; Start 02/03/19 at 09:00 Metoprolol Tartrate (Lopressor) 5 mg Q4H PRN IV HR>110 Hold SBP<100; Start 01/26/19 at 14:30 Furosemide (Lasix) 40 mg BID DIURETICS IV Last administered on 01/31/19 05:39; Admin Dose 40 MG; Start 01/27/19 at 18:00 Vancomycin HCl (Vanco Iv Per Pharmacy) VANCOMYCIN PER PHARMACY PER PROTOCOL XX ; Start 01/27/19 at 12:00 Norepinephrine 250 ml @ 1.875 mls/ hr TITRATE IV Last administered on 01/31/19 05:43; Admin Dose 5.625 MLS/HR; Start 01/27/19 at 12:30 Methylprednisolone Sodium Succinate (Solu-Medrol) 40 mg Q8 IV Last administered on 01/31/19 05:39; Admin Dose 40 MG; Start 01/27/19 at 14:00 Enoxaparin Sodium (Lovenox) 60 mg DAILY SC Last administered on 01/30/19 08:29; Admin Dose 60 MG; Start 01/28/19 at 09:00 Lorazepam (Ativan) 1 mg Q2 PRN IV SEIZURES Last administered on 01/28/19 19:29; Admin Dose 1 MG; Start 01/27/19 at 14:00 Aztreonam 50 ml @ 100 mls/hr Q12 IVPB Last administered on 01/31/19 08:21; Admin Dose 100 MLS/HR; Start 01/27/19 at 16:30 Metronidazole 100 ml @ 100 mls/hr Q8 IVPB Last administered on 01/31/19 05:40; Admin Dose 100 MLS/HR; Start 01/27/19 at 15:00 Atorvastatin Calcium (Lipitor) 40 mg QHS NGT Last administered on 01/30/19 21:28; Admin Dose 40 MG; Start 01/28/19 at 21:00 Docusate Sodium (Colace Liquid Cup) 100 mg BID NGT ; Start 01/27/19 at 22:00; Status Hold Terazosin HCl (Hytrin) 10 mg HS NGT Last administered on 01/30/19 21:29; Admin Dose 10 MG; Start 01/28/19 at 21:00 Levetiracetam 100 ml @ 400 mls/hr Q12 IVPB Last administered on 01/31/19 08:21; Admin Dose 400 MLS/HR; Start 01/28/19 at 09:00 Levothyroxine Sodium (Synthroid) 125 mcg BEFORE BREAKFAST NGT Last administ ered on 01/31/19 08:19; Admin Dose 125 MCG; Start 01/28/19 at 07:00 Ferrous Sulfate (Feosol Liquid Cup) 300 mg WITH MEALS GTB Last administered on 01/31/19 08:19; Admin Dose 300 MG; Start 01/28/19 at 11:30 Multivitamins (Multivitamin) 30 ml DAILY GTB Last administered on 01/31/19 08:19; Admin Dose 30 ML; Start 01/28/19 at 11:00 Lansoprazole (Prevacid) 30 mg DAILY@06 NGT Last administered on 01/31/19 05:39; Admin Dose 30 MG; Start 01/28/19 at 11:00 Diagnostic Test (Pha) (Accu-Chek) 1 ea Q4 XX Last administered on 01/31/19 08:45; Admin Dose 1 EA; Start 01/28/19 at 13:00 Caspofungin 50 mg/ Sodium Chloride 250 ml @ 250 mls/hr Q24H IVPB Last administered on 01/30/19 16:15; Admin Dose 250 MLS/HR; Start 01/29/19 at 15:00 Nystatin/ Triamcinolone Acetonide (Mycolog Oint) 1 applic BID TOP Last administered on 01/31/19 08:21; Admin Dose 1 APPLIC; Start 01/28/19 at 22:30 Insulin Aspart (Novolog Insulin Pen) NOVOLOG *MILD* ALGORI... Q4 SC Last administered on 01/31/19 08:42; Admin Dose 3 UNIT; Start 01/29/19 at 05:00 Albuterol/ Ipratropium (Duoneb) 3 ml Q6HWA RESP THERAPY HHN Last administered on 01/30/19 20:46; Admin Dose 3 ML; Start 01/29/19 at 14:00 Epoetin Dae-epbx (RETACRIT(non-esrd)) 40,000 unit Mo@1700 SC ; Start 02/03/19 at 17:00 Mupirocin (Bactroban) 1 applic BID TOP Last administered on 01/31/19at 08:21; Admin Dose 1 APPLIC; Start 01/30/19 at 15:26; Stop 02/09/19 at 15:25 Vancomycin HCl 250 ml @ 125 mls/hr Q48H IVPB ; Start 01/31/19 at 11:00 Tobramycin Sulfate/Sodium Chloride (Nilesh Inhal) 300 mg BID RESP THERAPY NEB Last administered on 01/30/19at 20:46; Admin Dose 300 MG; Start 01/30/19 at 20:00 Potassium Chloride 100 ml @ 50 mls/hr Q2H IVPB Last administered on 01/31/19at 08:19; Admin Dose 50 MLS/HR; Start 01/31/19 at 07:30; Stop 01/31/19 at 11:29 Furosemide (Lasix) 40 mg ONCE ONCE IV ; Start 01/31/19 at 09:00; Stop 01/31/19 at 09:01; Status UNV IVAN AKHTAR MD January 31, 2019 08:57
[2019-01-31] MEDS ORDERED: FUROSEMIDE 40 MG INJ IV ONE (09:00)
[2019-01-31] MEDS: ENOXAPARIN 60 MG/0.6 ML SYG SC SCH (09:00)
--- NOTE | 2019-01-31 09:10 | CONS ---
Assessment/Plan Assessment/Plan Assessment/Plan (Daily) There is been no change in patient's overall clinical condition he remains encephalopathic and on low-dose pressors and 30% FiO2. I had a long conversation patient's daughter 3 days ago code was changed to DO NOT RESUSCITATE at that time but intubation acceptable. Yesterday she visited her father and change CODE STATUS back to full code. At this time I do not know the reasons for it but after my first conversation with her and the amount of time it took to explain his level of cognition and his quality of life I believe that she would leave CODE STATUS as discussed above. We do not expect a significantly improved prognosis. Consultation Date/Type/Reason Admit Date/Time Jan 17, 2019 at 15:58 Initial Consult Date 01/18/19 Requesting Provider: IVAN AKHTAR MD Date/Time of Note DATE: 01/31/19 TIME: 09:07 Exam/Review of Systems Exam Vitals Vital Signs Date Temp Pulse Resp B/P (MAP) Pulse Ox O2 O2 Flow FiO2 Time Delivery Rate 01/31/19 83 08:00 01/31/19 20 88/60 (69) 100 Nasal 06:00 Cannula 01/31/19 97.8 04:00 01/31/19 2.0 27 02:48 Intake and Output 01/30/19 01/30/19 01/31/19 1515:00 23:00 07:00 IntakeIntake Total 885.00 ml 1026.82 ml 916.775 ml OutputOutput Total 810 ml 553 ml 501 ml BalanceBalance 75.00 ml 473.82 ml 415.775 ml Results Result Diagram: 01/31/19 0545 01/31/19 0545 Results 24hrs Laboratory Tests Test 01/30/19 12:46 01/30/19 14:09 01/30/19 18:17 01/30/19 21:34 Bedside Glucose 188 198 211 Vancomycin Level 20.9 *H Trough Test 01/31/19 01:30 01/31/19 05:35 01/31/19 05:45 01/31/19 08:38 Bedside Glucose 203 197 252 H White Blood Count 31.4 H Red Blood Count 2.16 L Hemoglobin 6.4 *L Hematocrit 19.9 L Mean Corpuscular 92.1 Volume Mean Corpuscular 29.6 Hemoglobin Mean Corpuscular 32.2 Hemoglobin Concent Red Cell 18.9 H Distribution Width Platelet Count 170 Mean Platelet Volume 11.0 H Immature 3.700 H Granulocytes % Neutrophils % Segmented 82 H Neutrophils % (Manual) Band Neutrophils % 11 H (Manual) Lymphocytes % Lymphocytes % 4 L (Manual) Monocytes % Monocytes % (Manual) 2 Eosinophils % Basophils % Promyelocytes % 1 H (Manual) Nucleated Red Blood 3 H Cells % Immature 1.150 H Granulocytes # Neutrophils # Neutrophils # 26.8 H (Manual) Band Neutrophils # 3.4 H Lymphocytes (Manual) 1.2 Lymphocytes # Monocytes # Monocytes # (Manual) 0.6 Eosinophils # Basophils # Promyelocytes # 0.3 H Nucleated Red Blood Cells # Platelet Estimate NORMAL Polychromasia 3+ Hypochromasia 1+ Poikilocytosis 3+ Anisocytosis 2+ Microcytosis 1+ Macrocytosis 2+ Spherocytes 1+ Target Cells 1+ Sodium Level 149 H Potassium Level 3.0 L Chloride Level 112 H Carbon Dioxide Level 28 Anion Gap 9 Blood Urea Nitrogen 50 H Creatinine 1.46 H Est Glomerular Filtrat Rate mL/min Glucose Level 166 Calcium Level 7.6 L Phosphorus Level 2.9 Magnesium Level 1.7 Total Bilirubin 0.2 Direct Bilirubin 0.00 Indirect Bilirubin 0.2 Aspartate Amino 31 # Transf (AST/SGOT) Alanine 31 Aminotransferase (AL T/SGPT) Alkaline Phosphatase 100 Total Protein 4.5 L Albumin 2.0 L Globulin 2.50 Albumin/Globulin 0.80 Ratio Medications Medication Current Medications Lactulose (Enulose) 20 gm DAILY PRN PO CONSTIPATION; Start 01/17/19 at 18:17 Acetaminophen (Tylenol Tab) 650 mg Q4H PRN PO PAIN Last administered on 01/23/19at 22:48; Admin Dose 650 MG; Start 01/17/19 at 18:17 Miscellaneous Information (Pending [facility] Order For Wound Care) This patient ramirez... PRN PRN XX WOUND CARE; Start 01/17/19 at 18:17 Albuterol/ Ipratropium (Duoneb) 3 ml Q2H RESP THERAPY PRN HHN SHORTNESS OF BREATH; Start 01/17/19 at 18:17 Bisacodyl (Dulcolax) 10 mg BID PRN PO CONSTIPATION; Start 01/17/19 at 18:17; Status Hold Folic Acid (Folic Acid) 1 mg DAILY PO Last administered on 01/31/19 08:19; Admin Dose 1 MG; Start 01/17/19 at 18:17 Latanoprost (Xalatan) 1 drop HS BOTH EYES Last administered on 01/30/19 21:31; Admin Dose 1 DROP; Start 01/17/19 at 18:17 Nitroglycerin (Nitroglycerin (Sl Tab) 0.4 Mg) 0.4 tab Q5M PRN SL CHEST PAIN; Start 01/17/19 at 18:17 Nystatin (Nystatin Powder) 1 applic BID TOP Last administered on 01/31/19 08:20; Admin Dose 1 APPLIC; Start 01/17/19 at 18:17 IV Flush (NS 3 ml) 3 ml PER PROTOCOL IV ; Start 01/17/19 at 18:17 Miscellaneous Information 1 ea NOTE XX ; Start 01/17/19 at 18:17 Glucose (Glutose) 15 gm Q15M PRN PO DECREASED GLUCOSE; Start 01/17/19 at 18:17 Glucose (Glutose) 22.5 gm Q15M PRN PO DECREASED GLUCOSE; Start 01/17/19 at 18:17 Dextrose (D50w Syringe) 25 ml Q15M PRN IV DECREASED GLUCOSE; Start 01/17/19 at 18:17 Dextrose (D50w Syringe) 50 ml Q15M PRN IV DECREASED GLUCOSE; Start 01/17/19 at 18:17 Glucagon (Glucagen) 1 mg Q15M PRN IM DECREASED GLUCOSE; Start 01/17/19 at 18:17 Glucose (Glutose) 15 gm Q15M PRN BUCCAL DECREASED GLUCOSE; Start 01/17/19 at 18:17 Zinc Sulfate (Zinc Sulfate) 220 mg DAILY PO Last administered on 01/31/19 08:19; Admin Dose 220 MG; Start 01/17/19 at 18:17 Ascorbic Acid (Vitamin C) 250 mg DAILY PO Last administered on 01/31/19 08:19; Admin Dose 250 MG; Start 01/17/19 at 18:17 Multi-Ingredient Ointment (Aquaphor Oint 52.5 Gm) 1 applic BID TOP Last administered on 01/31/19 08:20; Admin Dose 1 APPLIC; Start 01/17/19 at 18:17 Aspirin (Aspirin) 81 mg DAILY PO Last administered on 01/31/19 08:20; Admin Dose 81 MG; Start 01/17/19 at 18:17 Bisacodyl (Dulcolax Supp) 10 mg DAILY PRN IN CONSTIPATION; Start 01/17/19 at 18:17 Zinc Acetate/ Diphenhydramine (Benadryl 2% Cr) 1 applic Q6H PRN TOP ITCHING Last administered on 01/26/19 07:54; Admin Dose 1 APPLIC; Start 01/19/19 at 16:37 IV Flush (NS 10 ml) 10 ml PRN PRN IV IV PROTOCOL; Start 01/20/19 at 14:30 Cyanocobalamin (Vitamin B12 Inj) 1,000 mcg Q7D IM ; Start 02/03/19 at 09:00 Metoprolol Tartrate (Lopressor) 5 mg Q4H PRN IV HR>110 Hold SBP<100; Start 01/26/19 at 14:30 Furosemide (Lasix) 40 mg BID DIURETICS IV Last administered on 01/31/19 05:39; Admin Dose 40 MG; Start 01/27/19 at 18:00 Vancomycin HCl (Vanco Iv Per Pharmacy) VANCOMYCIN PER PHARMACY PER PROTOCOL XX ; Start 01/27/19 at 12:00 Norepinephrine 250 ml @ 1.875 mls/ hr TITRATE IV Last administered on 01/31/19 05:43; Admin Dose 5.625 MLS/HR; Start 01/27/19 at 12:30 Methylprednisolone Sodium Succinate (Solu-Medrol) 40 mg Q8 IV Last administered on 01/31/19 05:39; Admin Dose 40 MG; Start 01/27/19 at 14:00 Enoxaparin Sodium (Lovenox) 60 mg DAILY SC Last administered on 01/30/19 08:29; Admin Dose 60 MG; Start 01/28/19 at 09:00 Lorazepam (Ativan) 1 mg Q2 PRN IV SEIZURES Last administered on 01/28/19 19:29; Admin Dose 1 MG; Start 01/27/19 at 14:00 Aztreonam 50 ml @ 100 mls/hr Q12 IVPB Last administered on 01/31/19 08:21; Admin Dose 100 MLS/HR; Start 01/27/19 at 16:30 Metronidazole 100 ml @ 100 mls/hr Q8 IVPB Last administered on 5/10/19at 05:40; Admin Dose 100 MLS/HR; Start 01/27/19 at 15:00 Atorvastatin Calcium (Lipitor) 40 mg QHS NGT Last administered on 01/30/19 21:28; Admin Dose 40 MG; Start 01/28/19 at 21:00 Docusate Sodium (Colace Liquid Cup) 100 mg BID NGT ; Start 01/27/19 at 22:00; Status Hold Terazosin HCl (Hytrin) 10 mg HS NGT Last administered on 01/30/19 21:29; Admin Dose 10 MG; Start 01/28/19 at 21:00 Levetiracetam 100 ml @ 400 mls/hr Q12 IVPB Last administered on 01/31/19 08:21; Admin Dose 400 MLS/HR; Start 01/28/19 at 09:00 Levothyroxine Sodium (Synthroid) 125 mcg BEFORE BREAKFAST NGT Last administered on 01/31/19 08:19; Admin Dose 125 MCG; Start 01/28/19 at 07:00 Ferrous Sulfate (Feosol Liquid Cup) 300 mg WITH MEALS GTB Last administered on 01/31/19 08:19; Admin Dose 300 MG; Start 01/28/19 at 11:30 Multivitamins (Multivitamin) 30 ml DAILY GTB Last administered on 01/31/19 08:19; Admin Dose 30 ML; Start 01/28/19 at 11:00 Lansoprazole (Prevacid) 30 mg DAILY@06 NGT Last administered on 01/31/19 05:39; Admin Dose 30 MG; Start 01/28/19 at 11:00 Diagnostic Test (Pha) (Accu-Chek) 1 ea Q4 XX Last administered on 01/31/19 08:45; Admin Dose 1 EA; Start 01/28/19 at 13:00 Caspofungin 50 mg/ Sodium Chloride 250 ml @ 250 mls/hr Q24H IVPB Last adm inistered on 01/30/19 16:15; Admin Dose 250 MLS/HR; Start 01/29/19 at 15:00 Nystatin/ Triamcinolone Acetonide (Mycolog Oint) 1 applic BID TOP Last administered on 01/31/19 08:21; Admin Dose 1 APPLIC; Start 01/28/19 at 22:30 Insulin Aspart (Novolog Insulin Pen) NOVOLOG *MILD* ALGORI... Q4 SC Last ad ministered on 01/31/19 08:42; Admin Dose 3 UNIT; Start 01/29/19 at 05:00 Albuterol/ Ipratropium (Duoneb) 3 ml Q6HWA RESP THERAPY HHN Last administered on 01/30/19 20:46; Admin Dose 3 ML; Start 01/29/19 at 14:00 Epoetin Dae-epbx (RETACRIT(non-esrd)) 40,000 unit Mo@1700 SC ; Start 02/03/19 at 17:00 Mupirocin (Bactroban) 1 applic BID TOP Last administered on 01/31/19 08:21; Admin Dose 1 APPLIC; Start 01/30/19 at 15:26; Stop 02/09/19 at 15:25 Vancomycin HCl 250 ml @ 125 mls/hr Q48H IVPB ; Start 01/31/19 at 11:00 Tobramycin Sulfate/Sodium Chloride (Nilesh Inhal) 300 mg BID RESP THERAPY NEB Last administered on 01/30/19at 20:46; Admin Dose 300 MG; Start 01/30/19 at 20:00 Potassium Chloride 100 ml @ 50 mls/hr Q2H IVPB Last administered on 01/31/19 08:19; Admin Dose 50 MLS/HR; Start 01/31/19 at 07:30; Stop 01/31/19 at 11:29 MARGARITO WILSON January 31, 2019 09:10
--- NOTE | 2019-01-31 09:10 | CONS ---
Consult Date/Type/Reason Admit Date/Time Jan 17, 2019 at 15:58 Initial Consult Date Requesting Provider: IVAN AKHTAR MD Date/Time of Note DATE: 01/31/19 TIME: 09:07 Subjective Pt less alert - now on levo gtt - in a. fib - rate controlled - overall decompensated - con't supportive Rx ROS: No fever, no chills, no nausea, no vomiting, no diarrhea/constipation + weakness No recent weight changes No chest pain, no PND, no orthopnea No dizziness, blurred vision No thirst, no heat or cold intolerance Objective Vitals Vital Signs Date Temp Pulse Resp B/P (MAP) Pulse Ox O2 O2 Flow FiO2 Time Delivery Rate 01/31/19 83 08:00 01/31/19 20 88/60 (69) 100 Nasal 06:00 Cannula 01/31/19 97.8 04:00 01/31/19 2.0 27 02:48 Intake and Output 01/30/19 01/30/19 01/31/19 1414:59 22:59 06:59 IntakeIntake Total 878.75 ml 978.72 ml 1016.775 ml OutputOutput Total 745 ml 543 ml 576 ml BalanceBalance 133.75 ml 435.72 ml 440.775 ml Exam General: WN/WD/NAD, AOx 0-1 weyes open HEENT: Unicetric/atraumatic/EOMI (does not follow commands) NECK: JVD elevated, no thyromegaly Lymph: no lymphadenopathy HEART: irregular with no S3, II/ systolic murmur at apex LUNGS: Coarse sounds, chest catheter ABD: soft, NT, ND, +BS : Intact Neuro: non focal SKIN: desquamation changes EXT: trace edema Results/Medications Result Diagram: 01/31/19 0545 01/31/19 0545 Results 24 hrs Laboratory Tests Test 01/30/19 12:46 01/30/19 14:09 01/30/19 18:17 01/30/19 21:34 Bedside Glucose 188 198 211 Vancomycin Level 20.9 *H Trough Test 01/31/19 01:30 01/31/19 05:35 01/31/19 05:45 01/31/19 08:38 Bedside Glucose 203 197 252 H White Blood Count 31.4 H Red Blood Count 2.16 L Hemoglobin 6.4 *L Hematocrit 19.9 L Mean Corpuscular 92.1 Volume Mean Corpuscular 29.6 Hemoglobin Mean Corpuscular 32.2 Hemoglobin Concent Red Cell 18.9 H Distribution Width Platelet Count 170 Mean Platelet Volume 11.0 H Immature 3.700 H Granulocytes % Neutrophils % Segmented 82 H Neutrophils % (Manual) Band Neutrophils % 11 H (Manual) Lymphocytes % Lymphocytes % 4 L (Manual) Monocytes % Monocytes % (Manual) 2 Eosinophils % Basophils % Promyelocytes % 1 H (Manual) Nucleated Red Blood 3 H Cells % Immature 1.150 H Granulocytes # Neutrophils # Neutrophils # 26.8 H (Manual) Band Neutrophils # 3.4 H Lymphocytes (Manual) 1.2 Lymphocytes # Monocytes # Monocytes # (Manual) 0.6 Eosinophils # Basophils # Promyelocytes # 0.3 H Nucleated Red Blood Cells # Platelet Estimate NORMAL Polychromasia 3+ Hypochromasia 1+ Poikilocytosis 3+ Anisocytosis 2+ Microcytosis 1+ Macrocytosis 2+ Spherocytes 1+ Target Cells 1+ Sodium Level 149 H Potassium Level 3.0 L Chloride Level 112 H Carbon Dioxide Level 28 Anion Gap 9 Blood Urea Nitrogen 50 H Creatinine 1.46 H Est Glomerular Filtrat Rate mL/min Glucose Level 166 Calcium Level 7.6 L Phosphorus Level 2.9 Magnesium Level 1.7 Total Bilirubin 0.2 Direct Bilirubin 0.00 Indirect Bilirubin 0.2 Aspartate Amino 31 # Transf (AST/SGOT) Alanine 31 Aminotransferase (AL T/SGPT) Alkaline Phosphatase 100 Total Protein 4.5 L Albumin 2.0 L Globulin 2.50 Albumin/Globulin 0.80 Ratio Home Meds Active Scripts Apixaban* (Eliquis*) 5 Mg Tablet, 2.5 MG PO BID for 30 Days, TAB Prov:IVAN AKHTAR MD 12/20/18 Metoprolol Tartrate* (Lopressor*) 50 Mg Tab, 50 MG PO BID for 30 Days, TAB Prov:COOPER CARO 12/20/18 Reported Medications Furosemide* (Lasix*) 20 Mg Tablet, 20 MG PO BID, TAB 01/05/19 Polyethylene Glycol* (Miralax*) 17 Gm Powd.pack, 17 GM PO DAILY, #30 PACKET 12/15/18 Nifedipine* (Nifedipine ER*) 60 Mg Tablet.sa, 60 MG PO DAILY, TAB.SA 12/15/18 Bisacodyl* (Bisacodyl*) 5 Mg Tablet.dr, 10 MG PO BID PRN for CONSTIPATION, TAB 12/15/18 Pregabalin* (Lyrica*) 25 Mg Capsule, 25 MG PO TID, CAP 12/15/18 Bimatoprost* (Lumigan*) 0.01%-5 Ml Opht Drops, 1 DROP BOTH EYES HS, EA 03/02/18 Cetirizine Hcl* (Cetirizine Hcl*) 10 Mg Tablet, 10 MG PO DAILY, #30 TAB 03/02/18 Insulin Glargine* (Lantus*) 100 Unit/Ml Soln, 10 UNIT SC QHS, #1 VIAL 03/02/18 Ergocalciferol (Vitamin D2) (VITAMIN D2) 2,000 Unit Tablet, 2000 UNIT PO DAILY, TAB 03/02/18 Famotidine* (Famotidine*) 20 Mg Tablet, 20 MG PO DAILY, #30 TAB 03/02/18 Ferrous Sulfate* (Ferrous Sulfate*) 325 Mg Tabec, 325 MG PO BID, TAB 03/02/18 Nitroglycerin* (Nitrostat*) 0.4 Mg Tab.subl, 0.4 MG SL Q5MIN PRN for CHEST PAIN, BOTTLE 03/02/18 Terazosin Hcl* (Terazosin Hcl*) 10 Mg Capsule, 10 MG PO HS, CAP 03/02/18 Levothyroxine Sodium* (Levoxyl*) 125 Mcg Tablet, 125 MCG PO BEFORE BREAKFAST, #30 TAB 03/02/18 Allopurinol* (Allopurinol*) 100 Mg Tablet, 100 MG PO BID, TAB 03/02/18 Atorvastatin* (Atorvastatin*) 40 Mg Tablet, 40 MG PO QHS, #30 TAB 03/02/18 Folic Acid* (Folic Acid*) 1 Mg Tablet, 1 MG PO DAILY, TAB 03/02/18 Medications Current Medications Lactulose (Enulose) 20 gm DAILY PRN PO CONSTIPATION; Start 01/17/19 at 18:17 Acetaminophen (Tylenol Tab) 650 mg Q4H PRN PO PAIN Last administered on 01/23/19at 22:48; Admin Dose 650 MG; Start 01/17/19 at 18:17 Miscellaneous Information (Pending [facility] Order For Wound Care) This patient ramirez... PRN PRN XX WOUND CARE; Start 01/17/19 at 18:17 Albuterol/ Ipratropium (Duoneb) 3 ml Q2H RESP THERAPY PRN HHN SHORTNESS OF BREATH; Start 01/17/19 at 18:17 Bisacodyl (Dulcolax) 10 mg BID PRN PO CONSTIPATION; Start 01/17/19 at 18:17; Status Hold Folic Acid (Folic Acid) 1 mg DAILY PO Last administered on 01/31/19at 08:19; Admin Dose 1 MG; Start 01/17/19 at 18:17 Latanoprost (Xalatan) 1 drop HS BOTH EYES Last administered on 01/30/19at 21:31; Admin Dose 1 DROP; Start 01/17/19 at 18:17 Nitroglycerin (Nitroglycerin (Sl Tab) 0.4 Mg) 0.4 tab Q5M PRN SL CHEST PAIN; Start 01/17/19 at 18:17 Nystatin (Nystatin Powder) 1 applic BID TOP Last administered on 01/31/19at 08:20; Admin Dose 1 APPLIC; Start 01/17/19 at 18:17 IV Flush (NS 3 ml) 3 ml PER PROTOCOL IV ; Start 01/17/19 at 18:17 Miscellaneous Information 1 ea NOTE XX ; Start 01/17/19 at 18:17 Glucose (Glutose) 15 gm Q15M PRN PO DECREASED GLUCOSE; Start 01/17/19 at 18:17 Glucose (Glutose) 22.5 gm Q15M PRN PO DECREASED GLUCOSE; Start 01/17/19 at 18:17 Dextrose (D50w Syringe) 25 ml Q15M PRN IV DECREASED GLUCOSE; Start 01/17/19 at 18:17 Dextrose (D50w Syringe) 50 ml Q15M PRN IV DECREASED GLUCOSE; Start 01/17/19 at 18:17 Glucagon (Glucagen) 1 mg Q15M PRN IM DECREASED GLUCOSE; Start 01/17/19 at 18:17 Glucose (Glutose) 15 gm Q15M PRN BUCCAL DECREASED GLUCOSE; Start 01/17/19 at 18:17 Zinc Sulfate (Zinc Sulfate) 220 mg DAILY PO Last administered on 01/31/19at 08:19; Admin Dose 220 MG; Start 01/17/19 at 18:17 Ascorbic Acid (Vitamin C) 250 mg DAILY PO Last administered on 01/31/19 08:19; Admin Dose 250 MG; Start 01/17/19 at 18:17 Multi-Ingredient Ointment (Aquaphor Oint 52.5 Gm) 1 applic BID TOP Last administered on 01/31/19 08:20; Admin Dose 1 APPLIC; Start 01/17/19 at 18:17 Aspirin (Aspirin) 81 mg DAILY PO Last administered on 01/31/19 08:20; Admin Dose 81 MG; Start 01/17/19 at 18:17 Bisacodyl (Dulcolax Supp) 10 mg DAILY PRN [place] CONSTIPATION; Start 01/17/19 at 18:17 Zinc Acetate/ Diphenhydramine (Benadryl 2% Cr) 1 applic Q6H PRN TOP ITCHING Last administered on 01/26/19 07:54; Admin Dose 1 APPLIC; Start 01/19/19 at 16:37 IV Flush (NS 10 ml) 10 ml PRN PRN IV IV PROTOCOL; Start 01/20/19 at 14:30 Cyanocobalamin (Vitamin B12 Inj) 1,000 mcg Q7D IM ; Start 02/03/19 at 09:00 Metoprolol Tartrate (Lopressor) 5 mg Q4H PRN IV HR>110 Hold SBP<100; Start 01/26/19 at 14:30 Furosemide (Lasix) 40 mg BID DIURETICS IV Last administered on 01/31/19 05:39; Admin Dose 40 MG; Start 01/27/19 at 18:00 Vancomycin HCl (Vanco Iv Per Pharmacy) VANCOMYCIN PER PHARMACY PER PROTOCOL XX ; Start 01/27/19 at 12:00 Norepinephrine 250 ml @ 1.875 mls/ hr TITRATE IV Last administered on 01/31/19 05:43; Admin Dose 5.625 MLS/HR; Start 01/27/19 at 12:30 Methylprednisolone Sodium Succinate (Solu-Medrol) 40 mg Q8 IV Last administered on 01/31/19 05:39; Admin Dose 40 MG; Start 01/27/19 at 14:00 Enoxaparin Sodium (Lovenox) 60 mg DAILY SC Last administered on 01/30/19 08:29; Admin Dose 60 MG; Start 01/28/19 at 09:00 Lorazepam (Ativan) 1 mg Q2 PRN IV SEIZURES Last administered on 5/7/19at 19:29; Admin Dose 1 MG; Start 01/27/19 at 14:00 Aztreonam 50 ml @ 100 mls/hr Q12 IVPB Last administered on 01/31/19 08:21; Admin Dose 100 MLS/HR; Start 01/27/19 at 16:30 Metronidazole 100 ml @ 100 mls/hr Q8 IVPB Last administered on 01/31/19 05:40; Admin Dose 100 MLS/HR; Start 01/27/19 at 15:00 Atorvastatin Calcium (Lipitor) 40 mg QHS NGT Last administered on 01/30/19 21:28; Admin Dose 40 MG; Start 01/28/19 at 21:00 Docusate Sodium (Colace Liquid Cup) 100 mg BID NGT ; Start 01/27/19 at 22:00; Status Hold Terazosin HCl (Hytrin) 10 mg HS NGT Last administered on 01/30/19 21:29; Admin Dose 10 MG; Start 01/28/19 at 21:00 Levetiracetam 100 ml @ 400 mls/hr Q12 IVPB Last administered on 01/31/19 08:21; Admin Dose 400 MLS/HR; Start 01/28/19 at 09:00 Levothyroxine Sodium (Synthroid) 125 mcg BEFORE BREAKFAST NGT Last admini stered on 01/31/19 08:19; Admin Dose 125 MCG; Start 01/28/19 at 07:00 Ferrous Sulfate (Feosol Liquid Cup) 300 mg WITH MEALS GTB Last administered on 01/31/19 08:19; Admin Dose 300 MG; Start 01/28/19 at 11:30 Multivitamins (Multivitamin) 30 ml DAILY GTB Last administered on 01/31/19 08:19; Admin Dose 30 ML; Start 01/28/19 at 11:00 Lansoprazole (Prevacid) 30 mg DAILY@06 NGT Last administered on 01/31/19 05:39; Admin Dose 30 MG; Start 01/28/19 at 11:00 Diagnostic Test (Pha) (Accu-Chek) 1 ea Q4 XX Last administered on 01/31/19 08:45; Admin Dose 1 EA; Start 01/28/19 at 13:00 Caspofungin 50 mg/ Sodium Chloride 250 ml @ 250 mls/hr Q24H IVPB Last administered on 01/30/19 16:15; Admin Dose 250 MLS/HR; Start 01/29/19 at 15:00 Nystatin/ Triamcinolone Acetonide (Mycolog Oint) 1 applic BID TOP Last administered on 01/31/19 08:21; Admin Dose 1 APPLIC; Start 01/28/19 at 22:30 Insulin Aspart (Novolog Insulin Pen) NOVOLOG *MILD* ALGORI... Q4 SC Last administered on 01/31/19 08:42; Admin Dose 3 UNIT; Start 01/29/19 at 05:00 Albuterol/ Ipratropium (Duoneb) 3 ml Q6HWA RESP THERAPY HHN Last administered on 01/30/19 20:46; Admin Dose 3 ML; Start 01/29/19 at 14:00 Epoetin Dae-epbx (RETACRIT(non-esrd)) 40,000 unit Mo@1700 SC ; Start 02/03/19 at 17:00 Mupirocin (Bactroban) 1 applic BID TOP Last administered on 01/31/19 08:21; Admin Dose 1 APPLIC; Start 01/30/19 at 15:26; Stop 02/09/19 at 15:25 Vancomycin HCl 250 ml @ 125 mls/hr Q48H IVPB ; Start 01/31/19 at 11:00 Tobramycin Sulfate/Sodium Chloride (Nilesh Inhal) 300 mg BID RESP THERAPY NEB Last administered on 01/30/19 20:46; Admin Dose 300 MG; Start 01/30/19 at 20:00 Potassium Chloride 100 ml @ 50 mls/hr Q2H IVPB Last administered on 01/31/19 08:19; Admin Dose 50 MLS/HR; Start 01/31/19 at 07:30; Stop 01/31/19 at 11:29 Assessment/Plan Hospital Course (Demo Recall) 1. Atrial fibrillation, currently rate controlled.-off systemic anticoagulation due to anemia. On ASA only now - RATE CONTROLLED. 2. Possible congestive heart failure by chest x-ray, which will be diastolic, acute on chronic by most recent echo with an EF of 60%.Spot diuresis as needed. Con't to follow. Euvolemic by exam. Stopped IVF now. 3. Tricuspid regurgitation, moderate by most recent echo. 4. Acute on chronic renal failure - Cr 1.36 - avoid nephrotoxic meds. Dr. Alatorre follow. Stable. 5. Possible pneumonia - on anti-bx now. ID follows On pressors now. 6. History of coronary artery disease, status post coronary artery bypass graft surgery. Treated. 7. Dyslipidemia. 8. Rheumatoid arthritis - Rx per rheumatology. 9. Groin cellulitis. 10. Anemia-worsening again today requiring transfusions PRBC's.Now post-op s/p endoscopy ? findings - H/H at 6.4 - blood Rx to follow. 11. Diabetes mellitus. 12. Sepsis LOU PATINO MD January 31, 2019 09:10
[2019-01-31] MEDS: TOBRAMYCIN/0.25NS 300 MG/5 ML INHAL NEB SCH ×2 (09:44→19:24)
[2019-01-31] MEDS: ALBUTEROL/IPRATROPIUM (NEB) 3 ML AMP HHN SCH ×3 (09:44→19:23)
[2019-01-31] MEDS: VANCOMYCIN 1 GM 250 ML IVPB SCH (11:50)
--- NOTE | 2019-01-31 13:16 | CONS ---
Assessment/Plan Assessment/Plan Assessment/Plan (Daily) This is an 88 yo male with multiple medical problems including DM, CRF, RA, PVD and chronic afib on Eliquis who presented to [facility] 01/05/19 with severe normocytic anemia and Hg ~7. 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 # Anemia-normocytic -Hg 6.9 today -1 unit PRBC ordered boy PMD. -Multifactorial at this time due to iron deficiency, vitamin b12 deficiency and also likely anemia of chronic kidney disease and inflammation. Elevated Methylmalonic acid level noted -Patient still has low iron level even though ferritin is elevated. Ferritin likely elevated due to acute phase reactant. pt is now s/p IV iron. Pt is s/p EGD and colonoscopy by Dr Frost 01/09/19 which didn't find an obvious GI etiology to explain anemia. AVM or a small lesion could be missed due to poor prep. Pt likely needs capsule endoscopy -continue vitamin b12 weekly as vitamin b12 was low normal and methylmalonic acid was elevated. Continue folate as well. -No evidence of hemolysis at this time. -Transfuse to keep Hgb > 7. 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 -This may be a pseudocyst or a precancerous pancreatic lesion. -It has been growing in size but patient is asymptomatic. EUS with biopsy is recommended and can either be done inpatient or outpatient setting. -The patient at this time is unlikely a candidate for a Whipple surgery however. # Acute Kidney Injury - nephro follows - Cr 1.46 today # Hypokalemia - replace K per PMD/nephro Patient seen in collaboration with Dr Lorenzo. Consultation Date/Type/Reason Admit Date/Time Jan 17, 2019 at 15:58 Initial Consult Date 01/18/19 Type of Consult oncology Reason for Consultation pancreatic cystic mass; Anemia Requesting Provider: IVAN AKHTAR MD Date/Time of Note DATE: 01/31/19 TIME: 13:16 24 HR Interval Summary Free Text/Dictation - NAD - lethargic -Hg 6.9 today -1 unit PRBC ordered by PMD - Seems comfortable on supplemental O2 - diffuse exfoliating skin lesions noted - dw staff. Subjective hx not possible: pt critical Constitutional: requiring IVF, requiring O2 Exam/Review of Systems Exam Vitals Vital Signs Date Temp Pulse Resp B/P (MAP) Pulse Ox O2 O2 Flow FiO2 Time Delivery Rate 01/31/19 95 24 90/67 (75) 100 11:15 01/31/19 Nasal 11:00 Cannula 01/31/19 4.0 09:55 01/31/19 97.8 04:00 01/31/19 27 02:48 Intake and Output 01/30/19 01/30/19 01/31/19 1515:00 23:00 07:00 IntakeIntake Total 885.00 ml 1026.82 ml 966.775 ml OutputOutput Total 810 ml 553 ml 601 ml BalanceBalance 75.00 ml 473.82 ml 365.775 ml Constitutional: alert, well developed, frail Psych: nl mood/affect ENMT: nl external ears & nose Respiratory: diminished breath sounds Cardiovascular: nl pulses, other (s1s2) Gastrointestinal: soft Skin: other ( diffuse exfoliating skin lesions noted) Results Result Diagram: 01/31/1945 01/31/19 0545 Results 24hrs Laboratory Tests Test 01/30/19 14:09 01/30/19 18:17 01/30/19 21:34 01/31/19 01:30 Vancomycin Level 20.9 *H Trough Bedside Glucose 198 211 203 Test 01/31/19 05:35 01/31/19 05:45 01/31/19 08:38 Bedside Glucose 197 252 H White Blood Count 31.4 H Red Blood Count 2.16 L Hemoglobin 6.4 *L Hematocrit 19.9 L Mean Corpuscular 92.1 Volume Mean Corpuscular 29.6 Hemoglobin Mean Corpuscular 32.2 Hemoglobin Concent Red Cell 18.9 H Distribution Width Platelet Count 170 Mean Platelet Volume 11.0 H Immature 3.700 H Granulocytes % Neutrophils % Segmented 82 H Neutrophils % (Manual) Band Neutrophils % 11 H (Manual) Lymphocytes % Lymphocytes % 4 L (Manual) Monocytes % Monocytes % (Manual) 2 Eosinophils % Basophils % Promyelocytes % 1 H (Manual) Nucleated Red Blood 3 H Cells % Immature 1.150 H Granulocytes # Neutrophils # Neutrophils # 26.8 H (Manual) Band Neutrophils # 3.4 H Lymphocytes (Manual) 1.2 Lymphocytes # Monocytes # Monocytes # (Manual) 0.6 Eosinophils # Basophils # Promyelocytes # 0.3 H Nucleated Red Blood Cells # Platelet Estimate NORMAL Polychromasia 3+ Hypochromasia 1+ Poikilocytosis 3+ Anisocytosis 2+ Microcytosis 1+ Macrocytosis 2+ Spherocytes 1+ Target Cells 1+ Sodium Level 149 H Potassium Level 3.0 L Chloride Level 112 H Carbon Dioxide Level 28 Anion Gap 9 Blood Urea Nitrogen 50 H Creatinine 1.46 H Est Glomerular Filtrat Rate mL/min Glucose Level 166 Calcium Level 7.6 L Phosphorus Level 2.9 Magnesium Level 1.7 Total Bilirubin 0.2 Direct Bilirubin 0.00 Indirect Bilirubin 0.2 Aspartate Amino 31 # Transf (AST/SGOT) Alanine 31 Aminotransferase (AL T/SGPT) Alkaline Phosphatase 100 Total Protein 4.5 L Albumin 2.0 L Globulin 2.50 Albumin/Globulin 0.80 Ratio Medications Medication Current Medications Lactulose (Enulose) 20 gm DAILY PRN PO CONSTIPATION; Start 01/17/19 at 18:17 Acetaminophen (Tylenol Tab) 650 mg Q4H PRN PO PAIN Last administered on 01/23/19at 22:48; Admin Dose 650 MG; Start 01/17/19 at 18:17 Miscellaneous Information (Pending [facility] Order For Wound Care) This patient ramirez... PRN PRN XX WOUND CARE; Start 01/17/19 at 18:17 Albuterol/ Ipratropium (Duoneb) 3 ml Q2H RESP THERAPY PRN HHN SHORTNESS OF BREATH; Start 01/17/19 at 18:17 Bisacodyl (Dulcolax) 10 mg BID PRN PO CONSTIPATION; Start 01/17/19 at 18:17; Status Hold Folic Acid (Folic Acid) 1 mg DAILY PO Last administered on 01/31/19at 08:19; Admin Dose 1 MG; Start 01/17/19 at 18:17 Latanoprost (Xalatan) 1 drop HS BOTH EYES Last administered on 01/30/19at 21:31; Admin Dose 1 DROP; Start 01/17/19 at 18:17 Nitroglycerin (Nitroglycerin (Sl Tab) 0.4 Mg) 0.4 tab Q5M PRN SL CHEST PAIN; Start 01/17/19 at 18:17 Nystatin (Nystatin Powder) 1 applic BID TOP Last administered on 01/31/19 08:20; Admin Dose 1 APPLIC; Start 01/17/19 at 18:17 IV Flush (NS 3 ml) 3 ml PER PROTOCOL IV ; Start 01/17/19 at 18:17 Miscellaneous Information 1 ea NOTE XX ; Start 01/17/19 at 18:17 Glucose (Glutose) 15 gm Q15M PRN PO DECREASED GLUCOSE; Start 01/17/19 at 18:17 Glucose (Glutose) 22.5 gm Q15M PRN PO DECREASED GLUCOSE; Start 01/17/19 at 18: 17 Dextrose (D50w Syringe) 25 ml Q15M PRN IV DECREASED GLUCOSE; Start 01/17/19 at 18:17 Dextrose (D50w Syringe) 50 ml Q15M PRN IV DECREASED GLUCOSE; Start 01/17/19 at 18:17 Glucagon (Glucagen) 1 mg Q15M PRN IM DECREASED GLUCOSE; Start 01/17/19 at 18:17 Glucose (Glutose) 15 gm Q15M PRN BUCCAL DECREASED GLUCOSE; Start 01/17/19 at 18:17 Zinc Sulfate (Zinc Sulfate) 220 mg DAILY PO Last administered on 01/31/19 08:19; Admin Dose 220 MG; Start 01/17/19 at 18:17 Ascorbic Acid (Vitamin C) 250 mg DAILY PO Last administered on 01/31/19 08:19; Admin Dose 250 MG; Start 01/17/19 at 18:17 Multi-Ingredient Ointment (Aquaphor Oint 52.5 Gm) 1 applic BID TOP Last administered on 01/31/19at 08:20; Admin Dose 1 APPLIC; Start 01/17/19 at 18:17 Aspirin (Aspirin) 81 mg DAILY PO Last administered on 01/31/19at 08:20; Admin Dose 81 MG; Start 01/17/19 at 18:17 Bisacodyl (Dulcolax Supp) 10 mg DAILY PRN [place] CONSTIPATION; Start 01/17/19 at 18:17 Zinc Acetate/ Diphenhydramine (Benadryl 2% Cr) 1 applic Q6H PRN TOP ITCHING Last administered on 01/26/19at 07:54; Admin Dose 1 APPLIC; Start 01/19/19 at 16:37 IV Flush (NS 10 ml) 10 ml PRN PRN IV IV PROTOCOL; Start 01/20/19 at 14:30 Cyanocobalamin (Vitamin B12 Inj) 1,000 mcg Q7D IM ; Start 02/03/19 at 09:00 Metoprolol Tartrate (Lopressor) 5 mg Q4H PRN IV HR>110 Hold SBP<100; Start 01/26/19 at 14:30 Furosemide (Lasix) 40 mg BID DIURETICS IV Last administered on 01/31/19 05:39; Admin Dose 40 MG; Start 01/27/19 at 18:00 Vancomycin HCl (Vanco Iv Per Pharmacy) VANCOMYCIN PER PHARMACY PER PROTOCOL XX ; Start 01/27/19 at 12:00 Norepinephrine 250 ml @ 1.875 mls/ hr TITRATE IV Last administered on 01/31/19 05:43; Admin Dose 5.625 MLS/HR; Start 01/27/19 at 12:30 Methylprednisolone Sodium Succinate (Solu-Medrol) 40 mg Q8 IV Last administered on 01/31/19 05:39; Admin Dose 40 MG; Start 01/27/19 at 14:00 Enoxaparin Sodium (Lovenox) 60 mg DAILY SC Last administered on 01/30/19 08:29; Admin Dose 60 MG; Start 01/28/19 at 09:00 Lorazepam (Ativan) 1 mg Q2 PRN IV SEIZURES Last administered on 01/28/19 19:29; Admin Dose 1 MG; Start 01/27/19 at 14:00 Aztreonam 50 ml @ 100 mls/hr Q12 IVPB Last administered on 01/31/19 08:21; Admin Dose 100 MLS/HR; Start 01/27/19 at 16:30 Metronidazole 100 ml @ 100 mls/hr Q8 IVPB Last administered on 01/31/19 05:40; Admin Dose 100 MLS/HR; Start 01/27/19 at 15:00 Atorvastatin Calcium (Lipitor) 40 mg QHS NGT Last administered on 01/30/19 21:28; Admin Dose 40 MG; Start 01/28/19 at 21:00 Docusate Sodium (Colace Liquid Cup) 100 mg BID NGT ; Start 01/27/19 at 22:00; Status Hold Terazosin HCl (Hytrin) 10 mg HS NGT Last administered on 01/30/19 21:29; Admin Dose 10 MG; Start 01/28/19 at 21:00 Levetiracetam 100 ml @ 400 mls/hr Q12 IVPB Last administered on 01/31/19 08:21; Admin Dose 400 MLS/HR; Start 01/28/19 at 09:00 Levothyroxine Sodium (Synthroid) 125 mcg BEFORE BREAKFAST NGT Last administered on 01/31/19 08:19; Admin Dose 125 MCG; Start 01/28/19 at 07:00 Ferrous Sulfate (Feosol Liquid Cup) 300 mg WITH MEALS GTB Last administered on 01/31/19 11:54; Admin Dose 300 MG; Start 01/28/19 at 11:30 Multivitamins (Multivitamin) 30 ml DAILY GTB Last administered on 01/31/19 08:19; Admin Dose 30 ML; Start 01/28/19 at 11:00 Lansoprazole (Prevacid) 30 mg DAILY@06 NGT Last administered on 01/31/19 05:39; Admin Dose 30 MG; Start 01/28/19 at 11:00 Diagnostic Test (Pha) (Accu-Chek) 1 ea Q4 XX Last administered on 01/31/19 08:45; Admin Dose 1 EA; Start 01/28/19 at 13:00 Caspofungin 50 mg/ Sodium Chloride 250 ml @ 250 mls/hr Q24H IVPB Last administered on 01/30/19 16:15; Admin Dose 250 MLS/HR; Start 01/29/19 at 15:00 Nystatin/ Triamcinolone Acetonide (Mycolog Oint) 1 applic BID TOP Last administered on 01/31/19 08:21; Admin Dose 1 APPLIC; Start 01/28/19 at 22:30 Insulin Aspart (Novolog Insulin Pen) NOVOLOG *MILD* ALGORI... Q4 SC Last administered on 01/31/19 08:42; Admin Dose 3 UNIT; Start 01/29/19 at 05:00 Albuterol/ Ipratropium (Duoneb) 3 ml Q6HWA RESP THERAPY HHN Last administered on 01/31/19 09:44; Admin Dose 3 ML; Start 01/29/19 at 14:00 Epoetin Dae-epbx (RETACRIT(non-esrd)) 40,000 unit Mo@1700 SC ; Start 02/03/19 at 17:00 Mupirocin (Bactroban) 1 applic BID TOP Last administered on 01/31/19at 08:21; Admin Dose 1 APPLIC; Start 01/30/19 at 15:26; Stop 02/09/19 at 15:25 Vancomycin HCl 250 ml @ 125 mls/hr Q48H IVPB Last administered on 01/31/19at 11:50; Admin Dose 125 MLS/HR; Start 01/31/19 at 11:00 Tobramycin Sulfate/Sodium Chloride (Nilesh Inhal) 300 mg BID RESP THERAPY NEB Last administered on 01/31/19at 09:44; Admin Dose 300 MG; Start 01/30/19 at 20:00 JESI GATES January 31, 2019 13:16
--- NOTE | 2019-01-31 13:53 | PN ---
DATE: 01/31/2019 ATTENDING PHYSICIAN: Parker Palencia MD SUBJECTIVE: Chart was reviewed. The patient remains on 2 liters O2 nasal cannula, saturating 98%. Levophed has been turned off. Blood pressure is . The patient is receiving packed RBC. The pa tient does not appear in acute distress. PHYSICAL EXAMINATION: VITAL SIGNS: Blood pressure 90/67, pulse 95, respirations 24, temperature afebrile. HEENT: Pupils are equal and reactive to light. NECK: Supple. No JVD noted, no cervical adenopathy noted. LUNGS: Scattered rhonchi bilaterally. CARDIOVASCULAR: S1, S2 normal. Soft systolic murmur present. ABDOMEN: Soft, nontender. EXTREMITIES: No clubbing or cyanosis noted. Chronic skin changes present. NEUROLOGIC: Easily arousable. LABORATORY DATA: WBC 31.4, hemoglobin 6.4, hematocrit 19.9, platelets 170. Sodium 149, potassium 3. 0, chloride 112, CO2 of 28, BUN 50, creatinine 1.46, glucose 166. DIAGNOSTIC DATA: Chest x-ray shows diffuse interstitial and airspace infiltrates, small bilateral ef fusion. IMPRESSION: 1. Status post acute respiratory failure. 2. Pneumonia and volume overload. 3. Valvular heart disease. 4. Dysphagia. 5. Septic shock, slowly improving. 6. Anemia. 7. Diffuse skin lesions. RECOMMENDATIONS: 1. Continue current treatment. 2. Transfuse. 3. Potassium supplementation. 4. Broad spectrum antibiotics. 5. Follow up H and H. 6. Palliative care followup. 7. I discussed with the staff in detail. Dictated By: PARKER PALENCIA MD, MA/SUZIE Conf#: [id number] DID#: [id number] CC: LILY LAMBERT MD; IVAN AKHTAR;*EndCC*
--- NOTE | 2019-01-31 14:06 | CONS ---
Assessment/Plan Assessment/Plan Hospital Course (Demo Recall) No acute events patient is very awake but confused tolerates tube feedings off pressors and in no distress, no fevers overnight. He is getting blood transfusion WBC 31.4 H&H 6.4 19.9 platelets 170 neutrophils 82 bands 11, BUN 50 creatinine 1.46 Chest x-ray this morning revealed 1. Diffuse interstitial and airspace opacities throughout the lungs, slightly improved on the right and worsened on the left representing multifocal infection in the acute setting. Pulmonary edema could appear similarly. 2. Small bilateral pleural effusions, unchanged. Sputum culture grew E. coli Antimicrobials: Vancomycin, aztreonam, Flagyl Cancidas, tobramycin inhalation Indwelling: Left subclavian triple-lumen catheter, Wade catheter, NG tube Allergy: Penicillin, sulfa Physical examination: Obese well-developed chronically ill-appearing - [place] man who is lethargic, in no distress. Head atraumatic normocephalic sclera nonicteric. Neck is supple chest rise symmetrical breath sounds diminished bases. Heart: S1-S2. Abdomen obese soft bowel sounds present extremities without cyanosis, bilateral edema Assessment: 1. Severe sepsis s/p shock 2. Acute encephalopathy 3. Seizures 4. Healthcare acquired, possible aspiration pneumonia 5. Coronary artery disease/history of CABG 6. Advanced rheumatoid arthritis 5. Chronic atrial fibrillation 6. Diabetes 7. BPH 9. Acute on chronic anemia===> s/p EGD/colonoscopy 01/09/19 10. Status post right epididymitis 11. Pancreatic lesion per CT, unlikely neoplasm per oncology notes 12. 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, s/p punch bx Plan: Clinically continues to improve, continue present care, antibiotics, aspiration precautions, dc Cancidas Discussed with daughter at bedside Consultation Date/Type/Reason Admit Date/Time Jan 17, 2019 at 15:58 Initial Consult Date 01/18/19 Type of Consult id Requesting Provider: IVAN AKHTAR MD Date/Time of Note DATE: 01/31/19 TIME: 14:05 Exam/Review of Systems Exam Vitals Vital Signs Date Temp Pulse Resp B/P (MAP) Pulse Ox O2 O2 Flow FiO2 Time Delivery Rate 01/31/19 80 28 116/76 100 13:00 (89) 01/31/19 97.5 12:00 01/31/19 Nasal 11:00 Cannula 01/31/19 4.0 09:55 01/31/19 27 02:48 Intake and Output 01/30/19 01/30/19 01/31/19 1515:00 23:00 07:00 IntakeIntake Total 885.00 ml 1026.82 ml 966.775 ml OutputOutput Total 810 ml 553 ml 601 ml BalanceBalance 75.00 ml 473.82 ml 365.775 ml Results Result Diagram: 01/31/19 0545 01/31/19 0545 Results 24hrs Laboratory Tests Test 01/30/19 14:09 01/30/19 18:17 01/30/19 21:34 01/31/19 01:30 Vancomycin Level 20.9 *H Trough Bedside Glucose 198 211 203 Test 01/31/19 05:35 01/31/19 05:45 01/31/19 08:38 01/31/19 13:54 Bedside Glucose 197 252 H 211 White Blood Count 31.4 H Red Blood Count 2.16 L Hemoglobin 6.4 *L Hematocrit 19.9 L Mean Corpuscular 92.1 Volume Mean Corpuscular 29.6 Hemoglobin Mean Corpuscular 32.2 Hemoglobin Concent Red Cell 18.9 H Distribution Width Platelet Count 170 Mean Platelet Volume 11.0 H Immature 3.700 H Granulocytes % Neutrophils % Segmented 82 H Neutrophils % (Manual) Band Neutrophils % 11 H (Manual) Lymphocytes % Lymphocytes % 4 L (Manual) Monocytes % Monocytes % (Manual) 2 Eosinophils % Basophils % Promyelocytes % 1 H (Manual) Nucleated Red Blood 3 H Cells % Immature 1.150 H Granulocytes # Neutrophils # Neutrophils # 26.8 H (Manual) Band Neutrophils # 3.4 H Lymphocytes (Manual) 1.2 Lymphocytes # Monocytes # Monocytes # (Manual) 0.6 Eosinophils # Basophils # Promyelocytes # 0.3 H Nucleated Red Blood Cells # Platelet Estimate NORMAL Polychromasia 3+ Hypochromasia 1+ Poikilocytosis 3+ Anisocytosis 2+ Microcytosis 1+ Macrocytosis 2+ Spherocytes 1+ Target Cells 1+ Sodium Level 149 H Potassium Level 3.0 L Chloride Level 112 H Carbon Dioxide Level 28 Anion Gap 9 Blood Urea Nitrogen 50 H Creatinine 1.46 H Est Glomerular Filtrat Rate mL/min Glucose Level 166 Calcium Level 7.6 L Phosphorus Level 2.9 Magnesium Level 1.7 Total Bilirubin 0.2 Direct Bilirubin 0.00 Indirect Bilirubin 0.2 Aspartate Amino 31 # Transf (AST/SGOT) Alanine 31 Aminotransferase (AL T/SGPT) Alkaline Phosphatase 100 Total Protein 4.5 L Albumin 2.0 L Globulin 2.50 Albumin/Globulin 0.80 Ratio Medications Medication Current Medications Lactulose (Enulose) 20 gm DAILY PRN PO CONSTIPATION; Start 01/17/19 at 18:17 Acetaminophen (Tylenol Tab) 650 mg Q4H PRN PO PAIN Last administered on 01/23/19at 22:48; Admin Dose 650 MG; Start 01/17/19 at 18:17 Miscellaneous Information (Pending [facility] Order For Wound Care) This patient ramirez... PRN PRN XX WOUND CARE; Start 01/17/19 at 18:17 Albuterol/ Ipratropium (Duoneb) 3 ml Q2H RESP THERAPY PRN HHN SHORTNESS OF BREATH; Start 01/17/19 at 18:17 Bisacodyl (Dulcolax) 10 mg BID PRN PO CONSTIPATION; Start 01/17/19 at 18:17; Status Hold Folic Acid (Folic Acid) 1 mg DAILY PO Last administered on 01/31/19at 08:19; Admin Dose 1 MG; Start 01/17/19 at 18:17 Latanoprost (Xalatan) 1 drop HS BOTH EYES Last administered on 01/30/19at 21:31; Admin Dose 1 DROP; Start 01/17/19 at 18:17 Nitroglycerin (Nitroglycerin (Sl Tab) 0.4 Mg) 0.4 tab Q5M PRN SL CHEST PAIN; Start 01/17/19 at 18:17 Nystatin (Nystatin Powder) 1 applic BID TOP Last administered on 01/31/19 08:20; Admin Dose 1 APPLIC; Start 01/17/19 at 18:17 IV Flush (NS 3 ml) 3 ml PER PROTOCOL IV ; Start 01/17/19 at 18:17 Miscellaneous Information 1 ea NOTE XX ; Start 01/17/19 at 18:17 Glucose (Glutose) 15 gm Q15M PRN PO DECREASED GLUCOSE; Start 01/17/19 at 18:17 Glucose (Glutose) 22.5 gm Q15M PRN PO DECREASED GLUCOSE; Start 01/17/19 at 18:17 Dextrose (D50w Syringe) 25 ml Q15M PRN IV DECREASED GLUCOSE; Start 01/17/19 at 18:17 Dextrose (D50w Syringe) 50 ml Q15M PRN IV DECREASED GLUCOSE; Start 01/17/19 at 18:17 Glucagon (Glucagen) 1 mg Q15M PRN IM DECREASED GLUCOSE; Start 01/17/19 at 18:17 Glucose (Glutose) 15 gm Q15M PRN BUCCAL DECREASED GLUCOSE; Start 01/17/19 at 18:17 Zinc Sulfate (Zinc Sulfate) 220 mg DAILY PO Last administered on 01/31/19 08:19; Admin Dose 220 MG; Start 01/17/19 at 18:17 Ascorbic Acid (Vitamin C) 250 mg DAILY PO Last administered on 01/31/19 08:19; Admin Dose 250 MG; Start 01/17/19 at 18:17 Multi-Ingredient Ointment (Aquaphor Oint 52.5 Gm) 1 applic BID TOP Last administered on 01/31/19 08:20; Admin Dose 1 APPLIC; Start 01/17/19 at 18:17 Aspirin (Aspirin) 81 mg DAILY PO Last administered on 01/31/19 08:20; Admin Dose 81 MG; Start 01/17/19 at 18:17 Bisacodyl (Dulcolax Supp) 10 mg DAILY PRN [place] CONSTIPATION; Start 01/17/19 at 18:17 Zinc Acetate/ Diphenhydramine (Benadryl 2% Cr) 1 applic Q6H PRN TOP ITCHING Last administered on 01/26/19at 07:54; Admin Dose 1 APPLIC; Start 01/19/19 at 16:37 IV Flush (NS 10 ml) 10 ml PRN PRN IV IV PROTOCOL; Start 01/20/19 at 14:30 Cyanocobalamin (Vitamin B12 Inj) 1,000 mcg Q7D IM ; Start 02/03/19 at 09:00 Metoprolol Tartrate (Lopressor) 5 mg Q4H PRN IV HR>110 Hold SBP<100; Start 01/26/19 at 14:30 Furosemide (Lasix) 40 mg BID DIURETICS IV Last administered on 01/31/19at 05:39; Admin Dose 40 MG; Start 01/27/19 at 18:00 Vancomycin HCl (Vanco Iv Per Pharmacy) VANCOMYCIN PER PHARMACY PER PROTOCOL XX ; Start 01/27/19 at 12:00 Norepinephrine 250 ml @ 1.875 mls/ hr TITRATE IV Last administered on 01/31/19 05:43; Admin Dose 5.625 MLS/HR; Start 01/27/19 at 12:30 Methylprednisolone Sodium Succinate (Solu-Medrol) 40 mg Q8 IV Last administered on 01/31/19 05:39; Admin Dose 40 MG; Start 01/27/19 at 14:00 Enoxaparin Sodium (Lovenox) 60 mg DAILY SC Last administered on 01/30/19 08:29; Admin Dose 60 MG; Start 01/28/19 at 09:00 Lorazepam (Ativan) 1 mg Q2 PRN IV SEIZURES Last administered on 01/28/19 19:29; Admin Dose 1 MG; Start 01/27/19 at 14:00 Aztreonam 50 ml @ 100 mls/hr Q12 IVPB Last administered on 01/31/19 08:21; Admin Dose 100 MLS/HR; Start 01/27/19 at 16:30 Metronidazole 100 ml @ 100 mls/hr Q8 IVPB Last administered on 01/31/19 05:40; Admin Dose 100 MLS/HR; Start 01/27/19 at 15:00 Atorvastatin Calcium (Lipitor) 40 mg QHS NGT Last administered on 01/30/19 21:28; Admin Dose 40 MG; Start 01/28/19 at 21:00 Docusate Sodium (Colace Liquid Cup) 100 mg BID NGT ; Start 01/27/19 at 22:00; Status Hold Terazosin HCl (Hytrin) 10 mg HS NGT Last administered on 01/30/19 21:29; Admin Dose 10 MG; Start 01/28/19 at 21:00 Levetiracetam 100 ml @ 400 mls/hr Q12 IVPB Last administered on 01/31/19 08:21; Admin Dose 400 MLS/HR; Start 01/28/19 at 09:00 Levothyroxine Sodium (Synthroid) 125 mcg BEFORE BREAKFAST NGT Last administered on 01/31/19 08:19; Admin Dose 125 MCG; Start 01/28/19 at 07:00 Ferrous Sulfate (Feosol Liquid Cup) 300 mg WITH MEALS GTB Last administered on 01/31/19 11:54; Admin Dose 300 MG; Start 01/28/19 at 11:30 Multivitamins (Multivitamin) 30 ml DAILY GTB Last administered on 01/31/19 08:19; Admin Dose 30 ML; Start 01/28/19 at 11:00 Lansoprazole (Prevacid) 30 mg DAILY@06 NGT Last administered on 01/31/19 05:39; Admin Dose 30 MG; Start 01/28/19 at 11:00 Diagnostic Test (Pha) (Accu-Chek) 1 ea Q4 XX Last administered on 01/31/19 0 8:45; Admin Dose 1 EA; Start 01/28/19 at 13:00 Caspofungin 50 mg/ Sodium Chloride 250 ml @ 250 mls/hr Q24H IVPB Last administered on 01/30/19 16:15; Admin Dose 250 MLS/HR; Start 01/29/19 at 15:00 Nystatin/ Triamcinolone Acetonide (Mycolog Oint) 1 applic BID TOP Last administered on 01/31/19 08:21; Admin Dose 1 APPLIC; Start 01/28/19 at 22:30 Insulin Aspart (Novolog Insulin Pen) NOVOLOG *MILD* ALGORI... Q4 SC Last administered on 01/31/19 08:42; Admin Dose 3 UNIT; Start 01/29/19 at 05:00 Albuterol/ Ipratropium (Duoneb) 3 ml Q6HWA RESP THERAPY HHN Last administered on 01/31/19 09:44; Admin Dose 3 ML; Start 01/29/19 at 14:00 Epoetin Dae-epbx (RETACRIT(non-esrd)) 40,000 unit Mo@1700 SC ; Start 02/03/19 at 17:00 Mupirocin (Bactroban) 1 applic BID TOP Last administered on 01/31/19 08:21; Admin Dose 1 APPLIC; Start 01/30/19 at 15:26; Stop 02/09/19 at 15:25 Vancomycin HCl 250 ml @ 125 mls/hr Q48H IVPB Last administered on 01/31/19 11:50; Admin Dose 125 MLS/HR; Start 01/31/19 at 11:00 Tobramycin Sulfate/Sodium Chloride (Nilesh Inhal) 300 mg BID RESP THERAPY NEB Last administered on 01/31/19at 09:44; Admin Dose 300 MG; Start 01/30/19 at 20:00 LUCIAN HARKINS NP January 31, 2019 14:06
[2019-01-31] MEDS: CASPOFUNGIN 50 MG in SOD CHLORIDE 0.9% 250 ML IVPB SCH (14:26)
--- NOTE | 2019-01-31 16:23 | CONS ---
Assessment/Plan Assessment/Plan Hospital Course 88 yo M with multiple comorbidities who initially presented for evaluation of hiccups. He was noted to become acutely altered... for which neurology is consulted. He was noted to develop ams on 01/21 around 7pm and noted on 01/22 to be unresponsive... prompting a code stroke activation. The clinical picture suggests an acute toxic-metabolic encephalopathy.. Meningoencephalitis is, though, not yet excluded. MRI brain is without acute ischemia, though notable for chronic infarcts. 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 On 01/27/19, the pt was noted to have recurrent spells concerning for seizure, in the context of hypotension and hypothermia --> Tx to ICU EEG is without ongoing epileptiform activity P: Await LP for CSF eval when medically able Cont Keppra 500 BID for now Ativan IV PRN prolonged seizure (> 5 min) Agree w/ ASA/Lipitor daily pending the above Limit sedating medications where possible Other medical management per primary Will follow clinically Consultation Date/Type/Reason Admit Date/Time Jan 17, 2019 at 15:58 Type of Consult Neurology Reason for Consultation ams; eval for stroke Requesting Provider: IVAN AKHTAR MD Date/Time of Note DATE: 01/31/19 TIME: 16:23 Exam Vital Signs Vitals Vital Signs Date Temp Pulse Resp B/P (MAP) Pulse Ox O2 O2 Flow FiO2 Time Delivery Rate 01/31/19 78 16:00 01/31/19 2.0 28 15:45 01/31/19 18 100 Nasal 14:51 Cannula 01/31/19 116/76 13:00 (89) 01/31/19 97.5 12:00 Intake and Output 01/30/19 01/30/19 01/31/19 1515:00 23:00 07:00 IntakeIntake Total 885.00 ml 1026.82 ml 966.775 ml OutputOutput Total 810 ml 553 ml 601 ml BalanceBalance 75.00 ml 473.82 ml 365.775 ml NEGRA CORONA NP January 31, 2019 16:23
--- NOTE | 2019-01-31 16:54 | CONS ---
Assessment/Plan Assessment/Plan Hospital Course 88 yo M with multiple comorbidities who initially presented for evaluation of hiccups. He was noted to become acutely altered... for which neurology is consulted. He was noted to develop ams on 01/21 around 7pm and noted on 01/22 to be unresponsive... prompting a code stroke activation. The clinical picture suggests an acute toxic-metabolic encephalopathy.. Meningoencephalitis is, though, not yet excluded. MRI brain is without acute ischemia, though notable for chronic infarcts. 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 P: Cont Keppra 500 BID for now Ativan IV PRN prolonged seizure (> 5 min) Agree w/ ASA/Lipitor daily pending the above Limit sedating medications where possible Other medical management per primary Will follow clinically Consultation Date/Type/Reason Admit Date/Time Jan 17, 2019 at 15:58 Type of Consult Neurology Reason for Consultation ams; eval for stroke Requesting Provider: IVAN AKHTAR MD Date/Time of Note DATE: 01/31/19 TIME: 16:53 24 HR Interval Summary Free Text/Dictation Continues critical care. Off levophed. Daughter refused LP. Exam Vital Signs Vitals Vital Signs Date Temp Pulse Resp B/P (MAP) Pulse Ox O2 O2 Flow FiO2 Time Delivery Rate 01/31/19 78 16:00 01/31/19 2.0 28 15:45 01/31/19 18 100 Nasal 14:51 Cannula 01/31/19 116/76 13:00 (89) 01/31/19 97.5 12:00 Intake and Output 01/30/19 01/30/19 01/31/19 1515:00 23:00 07:00 IntakeIntake Total 885.00 ml 1026.82 ml 966.775 ml OutputOutput Total 810 ml 553 ml 601 ml BalanceBalance 75.00 ml 473.82 ml 365.775 ml Exam PE: Gen Appearance: No Apparent Distress HEENT: Normocephalic; on nasal cannula Cardiovascular: Regular rate Abdomen: Soft Extremities: Dry, skin peeling NE: The patient was awake and verbal. Speech unintelligible. Unable to track or follow commands. Cranial nerve examination was limited by mental status. Pupils were equal and reactive to light. There was no afferent pupillary defect. Funduscopic examination was limited. Face was grossly symmetric. Tone was normal. Muscle bulk was normal. I did not see fasciculations. The patient localized his UE to noxious stimuli; withdrew his lowers. Coordination and gait testing was limited by mental status. Arm and leg reflexes were within normal limits and symmetric. Gray's sign was absent. Plantar responses were flexor. NEGRA CORONA NP January 31, 2019 16:54 ANGE RAMIREZ February 01, 2019 06:41
[2019-01-31] MEDS: INSULIN GLARGINE [LANTus] (100 UNITS/ML) SYG SC SCH (21:15)
[2019-01-31] MEDS: ATORVASTATIN 40 MG TAB NGT SCH (21:16)
[2019-01-31] MEDS: NPH, HUMAN INSULIN ISOPHANE 3ML VIAL SC SCH (21:16)
[2019-01-31] MEDS: TERAZOSIN 5 MG CAP NGT SCH (21:16)
[2019-01-31] MEDS: LATANOPROST 0.005% 2.5 ML OPH BOTH EYES SCH (21:17)
[2019-02-01] VITALS (25 sets, daily range): BP systolic 48–176; BP diastolic 19–143; PULSE 79–100; RESP 16–31
[2019-02-01] MEDS: ACCU-CHEK XX SCH ×7 (00:28→20:10)
[2019-02-01] MEDS: INSULIN ASPART [NOVOLOG] 3 ML PEN SC SCH ×6 (00:28→20:14)
[2019-02-01] MEDS: FUROSEMIDE 40 MG INJ IV SCH ×2 (05:14→17:58)
[2019-02-01] MEDS: metroNIDAZOLE 500 MG/NS (PMX) 100 ML IVPB SCH ×3 (05:14→22:10)
[2019-02-01] MEDS: METHYLPREDNISOLONE 40 MG INJ IV SCH ×3 (05:15→22:10)
[2019-02-01] MEDS: NPH, HUMAN INSULIN ISOPHANE 3ML VIAL SC SCH ×3 (05:16→22:17)
[2019-02-01] MEDS: LANSOPRAZOLE 30 MG CAP NGT SCH (05:16)
[2019-02-01] MEDS: FERROUS SULFATE 60 MG/ML 5ML CUP GTB SCH ×3 (05:26→17:58)
[2019-02-01] MEDS: LEVOTHYROXINE 125 MCG TAB NGT SCH (05:26)
[2019-02-01] MEDS: ALBUTEROL/IPRATROPIUM (NEB) 3 ML AMP HHN SCH ×3 (07:52→19:59)
[2019-02-01] MEDS: TOBRAMYCIN/0.25NS 300 MG/5 ML INHAL NEB SCH ×2 (08:01→20:31)
--- NOTE | 2019-02-01 09:40 | CONS ---
Assessment/Plan Assessment/Plan Hospital Course 88 yo M with multiple comorbidities who initially presented for evaluation of hiccups. He was noted to become acutely altered... for which neurology is consulted. He was noted to develop ams on 01/21 around 7pm and noted on 01/22 to be unresponsive... prompting a code stroke activation. The clinical picture suggests an acute toxic-metabolic encephalopathy.. Meningoencephalitis is, though, not yet excluded. MRI brain is without acute ischemia, though notable for chronic infarcts. 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 P: Cont Keppra 500 BID for now Ativan IV PRN prolonged seizure (> 5 min) Agree w/ ASA/Lipitor daily pending the above Limit sedating medications where possible Other medical management per primary Will follow clinically Consultation Date/Type/Reason Admit Date/Time Jan 17, 2019 at 15:58 Type of Consult Neurology Reason for Consultation ams; eval for stroke Requesting Provider: IVAN AKHTAR MD Date/Time of Note DATE: 02/01/19 TIME: 09:40 24 HR Interval Summary Free Text/Dictation Continues critical care. Exam Vital Signs Vitals Vital Signs Date Temp Pulse Resp B/P (MAP) Pulse Ox O2 O2 Flow FiO2 Time Delivery Rate 02/01/19 82 08:00 02/01/19 20 97 Nasal 2.0 07:55 Cannula 02/01/19 108/51 06:00 (70) 02/01/19 97.9 04:00 01/31/19 21 20:02 Intake and Output 01/31/19 01/31/19 02/01/19 1515:00 23:00 07:00 IntakeIntake Total 1878.08 ml 1030 ml 580 ml OutputOutput Total 975 ml 1210 ml 685 ml BalanceBalance 903.08 ml -180 ml -105 ml Exam PE: Gen Appearance: No Apparent Distress HEENT: Normocephalic; on nasal cannula Cardiovascular: Regular rate Abdomen: Soft Extremities: Dry, skin peeling NE: The patient was awake, alert and oriented to self. Able to respond appropriately to yes/no questions. Unable to track. Follows simple appendicular commands. Cranial nerve examination was limited by mental status. Pupils were equal and reactive to light. There was no afferent pupillary defect. Funduscopic examination was limited. Face was grossly symmetric. Tone was normal. Muscle bulk was normal. I did not see fasciculations. The patient was antigravity in all extremities, LUE>RUE, lowers symmetrically. Coordination and gait testing was limited by mental status. Arm and leg reflexes were within normal limits and symmetric. Gray's sign was absent. Plantar responses were flexor. NEGRA CORONA NP February 01, 2019 09:40
[2019-02-01] MEDS: MULTIVITAMINS 30 ML CUP GTB SCH (10:23)
[2019-02-01] MEDS: AZTREONAM 1 GM/NS (PMX) 50 ML IVPB SCH ×2 (10:23→20:08)
[2019-02-01] MEDS: ASPIRIN 81 MG TAB PO SCH (10:24)
[2019-02-01] MEDS: LEVETIRACETAM 500 MG (PMX) 100 ML IVPB SCH ×2 (10:24→20:08)
[2019-02-01] MEDS: ZINC SULFATE 220 MG CAP PO SCH (10:24)
[2019-02-01] MEDS: ASCORBIC ACID 250 MG TAB PO SCH (10:25)
[2019-02-01] MEDS: POTASSIUM CHLORIDE 20 MEQ POWDER FOR ORAL SOLN NGT SCH ×2 (10:25→20:07)
[2019-02-01] MEDS: FOLIC ACID 1 MG TAB PO SCH (10:26)
[2019-02-01] MEDS: BALSAM PERU/CASTOR OIL 60 GM TUBE TOP SCH ×2 (10:27→20:09)
[2019-02-01] MEDS: MUPIROCIN 2% 22 GM OINT TOP SCH ×2 (10:27→20:09)
[2019-02-01] MEDS: NYSTATIN/TRIAMCINOLONE 15 GM OINT TOP SCH ×2 (10:28→20:10)
[2019-02-01] MEDS: NYSTATIN 30 GM POWDER BTL TOP SCH ×2 (10:29→20:10)
[2019-02-01] MEDS: ENOXAPARIN 60 MG/0.6 ML SYG SC SCH (10:44)
[2019-02-01] MEDS: AQUAPHOR 52.5 GM OINT TOP SCH ×2 (10:58→20:09)
--- NOTE | 2019-02-01 11:29 | CONS ---
Assessment/Plan Assessment/Plan Hospital Course (Demo Recall) ID PROGRESS NOTE CURRENT ABX: DAY # => Vanco IV + Azactam + Flagyl + TOBRA INH s/p Cancidas 02/01/198 02/01/19407 24 H INTERVAL SUMMARY * NO fevers-> hypothermic temps recorded, encephalopathic, WBC elevated - noted to be on IV Solumedrol * - CXR with worsening PNA * CHART REVIEWED: He developed worsening mental status 01/21/18. On 01/27/19, the pt was noted to have recurrent spells concerning for seizure, in the context of hypotension and hypothermia --> Tx to ICU w/Neuro on the case. EEG is without ongoing epileptiform activity - Patient too unstable for LP MICRO/OTHER * 01/30/19 EYE CX: WOUND CULTURE Preliminary SOURCE: EXUDATE FROM RIGHT EYE No growth after 1 day * 01/28/19 RESP CX: RESPIRATORY CULTURE Final Organism 1 ESCHERICHIA COLI QUANTITY SCANT GROWTH Organism 2 NORMAL RESPIRATORY MARIE QUANTITY 2+ E COLI M.I.C. RX --------- --- AMPICILLIN 4 S CEFAZOLIN I CEFOTAXIME S CIPROFLOXACIN >=4 R GENTAMICIN <=1 S LEVOFLOXACIN >=8 R TOBRAMYCIN <=1 S TRIMETHOPRIM/SULFAMETHOXAZOLE <=20 S * 01/27/19 BCX (-) * 01/21/19 BCX (-) * 01/17/19 BCX (+) Staph COAGULASE NEGATIVE STAPH == skin contaminant * 01/05/19 BCx (-) * Skin Cx (+)Mateus Albicans HPI/HOSPITAL COURSE * 88 yo M w/multiple-cardiopulmonary co-morbid conditions -- readmitted with sepsis likely due to pulmonary infection. * Patient s/p recent admission for PNA with radiological improvement -- now returns with probable persistent pulm infection + SIGNIFICANT YEAST DERMATOMYCOSIS GROIN -- Primary has narrowed ABX spectrum for concern YEAST infection and MICHELLE which is an effective strategy. * WBC down with empiric ABX coverage. * ROS: Limited by patient's critical illness DIAGNOSTIC IMAGING * 01/31/19 CXR: 1. Diffuse interstitial and airspace opacities throughout the lungs, slightly improved on the right and worsened on the left representing multifocal infection in the acute setting. Pulmonary edema could appear similarly. 2. Small bilateral pleural effusions, unchanged. * 01/28/19: MRI BRAIN: * 1. No acute intracranial abnormality. No intracranial hemorrhage, enhancing mass lesion, infarction or hydrocephalous. * 2. Remote prior right temporal lobe infarct with associated gliosis in the underlying white matter. No evidence of acute superimposed on chronic infarct. * 3. Mild to moderate peripheral and central cerebral volume loss, within normal limits for age. * 4. Mild to moderate patchy periventricular and subcortical white matter lesions, likely related to chronic microangiopathic changes. * 5. Remote lacunar infarct in the right cerebellar hemisphere * 01/15/19 CT CHEST: IMPRESSION: Patchy bilateral lung opacities, possibly representing multifocal pneumonia.Small to moderate bilateral pleural effusions.Status post CABG.Moderate atherosclerotic calcifications. Enlarged main pulmonary artery, possibly representing pulmonary hypertension.Mild diffuse subcutaneous edema.Mild to moderate dextroscoliosis. * 01/07/19 CXR:Cardiomegaly with interval mild increase in diffuse interstitial/air space opacities, representing edema and/or pneumonia. Small bilateral pleural effusions. * 12/16/18 2D ECHO Conclusions: * Normal left ventricular systolic function. Normal left ventricular cavity size. Moderate concentric left ventricular hypertrophy. Ejection fraction is visually estimated at 60 %. Tissue Doppler/Mitral Doppler indices are c onsistent with restrictive physiology with markedly elevated left atrial pressure (Stage III-IV diastolic dysfunction). * Mild right ventricular systolic dysfunction. Mild enlargement of right ventricle. * There is moderate enlargement of right atrium. * Normal appearance and function of the mitral valve with trace physiologic regurgitation. Mitral valve leaflets appear mildly thickened. Mild mitral annular calcification. Mild to moderate mitral valve regurgitation. * Normal appearance of the aortic valve. No significant aortic stenosis or insufficiency. No hemodynamically significant aortic stenosis by doppler. Aortic cusps appear mildly calcified. Mild aortic valve regurgitation. * Normal appearance of the tricuspid valve. Estimated peak PA systolic pressure 74 mmHg. There is moderate tricuspid regurgitation. PHYSICAL EXAMINATION: GENERAL: VSS, frail elderly male lethargic -- HEENT: AT, NC, anicteric NECK: Supple, CHEST: Equal chest rise bilaterally - diminishes bilateral HEART: Pulse RRR ABDOMEN: Soft / NT EXTREMITIES: Warm, dry SKIN: No rash, no diaphoresis == BILATERAL AXILLARY, GROIN, SANDY YEAST INFECTION ID ASSESSMENT 88 yo M w/multiple chronic co-morbid conditions re-admit with: 1. Recurrent Sepsis w/ENCEPHALOPATHY -- ASP VS HCAP 2. 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 4. 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 Advanced rheumatoid arthritis with possibility of rheumatoid lung as well. * Patient was on Remicade and stopped using it about a year ago. 6. Hypertension w/HTN heart disease 7. Hyperlipidemia. 8. Hypothyroidism. 9. Normocytic normochromic chronic anemia 10. Bilateral groin cellulitis more likely associated with mateus, patches in groin and axilla bilaterally-> recent ABX for PNA 11. Acute on chronic renal failure likely secondary to sepsis 12. Diabetes type 2. 13. CV disease, CAD, PAD, Hx of CABGx2, carotid stent 14. Peripheral vascular disease. 15. Chronic A.Fib on anticoagulants 16. ANEMIA w/ Thrombocytopenia-> s/p EGD DECEMBER 2018 * PRBC Tx PRN 17. BPH on Hytrin 18. S/P Right epididymitis 19. Pancreatic lesion per CT-> unlikely neoplasm per oncology notes (-)MRSA Nares ABX ALLERGIES: KNDA INVASIVES: PIV CURRENT ABX: DAY # => Vanco IV + Azactam + Flagyl + TOBRA INH s/p Cancidas ID RECOMMENDATIONS/PLAN: 1. Continue current ABX over the weekend 2. Full-code status noted -- appreciate palliative care efforts/notes . Consultation Date/Type/Reason Admit Date/Time Jan 17, 2019 at 15:58 Initial Consult Date Requesting Provider: IVAN AKHTAR MD Date/Time of Note DATE: 02/01/19 TIME: 11:11 Exam/Review of Systems Exam Vitals Vital Signs Date Temp Pulse Resp B/P (MAP) Pulse Ox O2 O2 Flow FiO2 Time Delivery Rate 02/01/19 82 08:00 02/01/19 20 97 Nasal 2.0 07:55 Cannula 02/01/19 108/51 06:00 (70) 02/01/19 97.9 04:00 01/31/19 21 20:02 Intake and Output 01/31/19 01/31/19 02/01/19 1515:00 23:00 07:00 IntakeIntake Total 1878.08 ml 1030 ml 580 ml OutputOutput Total 975 ml 1210 ml 685 ml BalanceBalance 903.08 ml -180 ml -105 ml Results Result Diagram: 02/01/19 0408 02/01/19 0408 Results 24hrs Laboratory Tests Test 01/31/19 13:54 01/31/19 15:53 01/31/19 16:46 01/31/19 21:10 Bedside Glucose 211 222 H 237 H Sodium Level 148 H Potassium Level 3.4 L Chloride Level 111 H Carbon Dioxide 29 Level Anion Gap 8 Blood Urea 50 H Nitrogen Creatinine 1.46 H Est Glomerular Filtrat Rate mL/min Glucose Level 183 Calcium Level 7.7 L Test 02/01/19 00:23 02/01/19 04:08 02/01/19 04:56 02/01/19 05:13 Bedside Glucose 164 116 White Blood Count 31.4 H Red Blood Count 3.02 #L Hemoglobin 8.9 #L Hematocrit 26.8 #L Mean Corpuscular 88.7 Volume Mean Corpuscular 29.5 Hemoglobin Mean Corpuscular 33.2 Hemoglobin Concen t Red Cell 18.5 H Distribution Width Platelet Count 151 Mean Platelet 11.3 H Volume Immature 4.700 H Granulocytes % Neutrophils % Segmented 81 H Neutrophils % (Manual) Band Neutrophils 11 H % (Manual) Lymphocytes % Lymphocytes % 4 L (Manual) Reactive 1 H Lymphocytes % (Manual) Monocytes % Monocytes % 1 (Manual) Eosinophils % Basophils % Myelocytes % 2 H (Manual) Nucleated Red 6 H Blood Cells % Immature 1.490 H Granulocytes # Neutrophils # Neutrophils # 26.5 H (Manual) Band Neutrophils 3.4 H # Lymphocytes 1.2 (Manual) Lymphocytes # Reactive 0.3 H Lymphocytes # Monocytes # Monocytes # 0.3 (Manual) Eosinophils # Basophils # Myelocytes # 0.6 H Nucleated Red Blood Cells # Platelet Estimate NORMAL Giant Platelets 1 H Poikilocytosis 1+ Anisocytosis 2+ Macrocytosis 1+ Target Cells 1+ Sodium Level 152 H Potassium Level 3.0 L Chloride Level 113 H Carbon Dioxide 31 Level Anion Gap 8 Blood Urea 56 H Nitrogen Creatinine 1.42 H Est Glomerular Filtrat Rate mL/min Glucose Level 94 # Calcium Level 7.9 L Phosphorus Level 2.3 L Magnesium Level 1.7 Lab Scanned BLOOD TRANSFUSIO Report N Test 02/01/19 10:38 Bedside Glucose 152 Medications Medication Current Medications Lactulose (Enulose) 20 gm DAILY PRN PO CONSTIPATION; Start 01/17/19 at 18:17 Acetaminophen (Tylenol Tab) 650 mg Q4H PRN PO PAIN Last administered on 01/23/19at 22:48; Admin Dose 650 MG; Start 01/17/19 at 18:17 Miscellaneous Information ([facility]) This patient ramirez ... PRN PRN XX WOUND CARE; Start 01/17/19 at 18:17 Albuterol/ Ipratropium (Duoneb) 3 ml Q2H RESP THERAPY PRN HHN SHORTNESS OF BREATH; Start 01/17/19 at 18:17 Bisacodyl (Dulcolax) 10 mg BID PRN PO CONSTIPATION; Start 01/17/19 at 18:17; Status Hold Folic Acid (Folic Acid) 1 mg DAILY PO Last administered on 02/01/19at 10:26; Admin Dose 1 MG; Start 01/17/19 at 18:17 Latanoprost (Xalatan) 1 drop HS BOTH EYES Last administered on 01/31/19at 21:17; Admin Dose 1 DROP; Start 01/17/19 at 18:17 Nitroglycerin (Nitroglycerin (Sl Tab) 0.4 Mg) 0.4 tab Q5M PRN SL CHEST PAIN; Start 01/17/19 at 18:17 Nystatin (Nystatin Powder) 1 applic BID TOP Last administered on 02/01/19at 10:29; Admin Dose 1 APPLIC; Start 01/17/19 at 18:17 IV Flush (NS 3 ml) 3 ml PER PROTOCOL IV ; Start 01/17/19 at 18:17 Miscellaneous Information 1 ea NOTE XX ; Start 01/17/19 at 18:17 Glucose (Glutose) 15 gm Q15M PRN PO DECREASED GLUCOSE; Start 01/17/19 at 18:17 Glucose (Glutose) 22.5 gm Q15M PRN PO DECREASED GLUCOSE; Start 01/17/19 at 18:17 Dextrose (D50w Syringe) 25 ml Q15M PRN IV DECREASED GLUCOSE; Start 01/17/19 at 18:17 Dextrose (D50w Syringe) 50 ml Q15M PRN IV DECREASED GLUCOSE; Start 01/17/19 at 18:17 Glucagon (Glucagen) 1 mg Q15M PRN IM DECREASED GLUCOSE; Start 01/17/19 at 18:17 Glucose (Glutose) 15 gm Q15M PRN BUCCAL DECREASED GLUCOSE; Start 01/17/19 at 18:17 Zinc Sulfate (Zinc Sulfate) 220 mg DAILY PO Last administered on 02/01/19at 10:24; Admin Dose 220 MG; Start 01/17/19 at 18:17 Ascorbic Acid (Vitamin C) 250 mg DAILY PO Last administered on 02/01/19at 10:25; Admin Dose 250 MG; Start 01/17/19 at 18:17 Multi-Ingredient Ointment (Aquaphor Oint 52.5 Gm) 1 applic BID TOP Last administered on 02/01/19at 10:58; Admin Dose 1 APPLIC; Start 01/17/19 at 18:17 Aspirin (Aspirin) 81 mg DAILY PO Last administered on 02/01/19 10:24; Admin Dose 81 MG; Start 01/17/19 at 18:17 Bisacodyl (Dulcolax Supp) 10 mg DAILY PRN ND CONSTIPATION; Start 01/17/19 at 18:17 Zinc Acetate/ Diphenhydramine (Benadryl 2% Cr) 1 applic Q6H PRN TOP ITCHING Last administered on 01/26/19at 07:54; Admin Dose 1 APPLIC; Start 01/19/19 at 16:37 IV Flush (NS 10 ml) 10 ml PRN PRN IV IV PROTOCOL; Start 01/20/19 at 14:30 Cyanocobalamin (Vitamin B12 Inj) 1,000 mcg Q7D IM ; Start 02/03/19 at 09:00 Metoprolol Tartrate (Lopressor) 5 mg Q4H PRN IV HR>110 Hold SBP<100; Start 01/26/19 at 14:30 Furosemide (Lasix) 40 mg BID DIURETICS IV Last administered on 02/01/19at 05:14; Admin Dose 40 MG; Start 01/27/19 at 18:00 Vancomycin HCl (Vanco Iv Per Pharmacy) VANCOMYCIN PER PHARMACY PER PROTOCOL XX ; Start 01/27/19 at 12:00 Norepinephrine 250 ml @ 1.875 mls/ hr TITRATE IV Last administered on 01/31/19at 05:43; Admin Dose 5.625 MLS/HR; Start 01/27/19 at 12:30 Methylprednisolone Sodium Succinate (Solu-Medrol) 40 mg Q8 IV Last administered on 02/01/19at 05:15; Admin Dose 40 MG; Start 01/27/19 at 14:00 Enoxaparin Sodium (Lovenox) 60 mg DAILY SC Last administered on 02/01/19 10:44; Admin Dose 60 MG; Start 01/28/19 at 09:00 Lorazepam (Ativan) 1 mg Q2 PRN IV SEIZURES Last administered on 01/28/19 19:29; Admin Dose 1 MG; Start 01/27/19 at 14:00 Aztreonam 50 ml @ 100 mls/hr Q12 IVPB Last administered on 02/01/19 10:23; Admin Dose 100 MLS/HR; Start 01/27/19 at 16:30 Metronidazole 100 ml @ 100 mls/hr Q8 IVPB Last administered on 02/01/19 05:14; Admin Dose 100 MLS/HR; Start 01/27/19 at 15:00 Atorvastatin Calcium (Lipitor) 40 mg QHS NGT Last administered on 01/31/19 21:16; Admin Dose 40 MG; Start 01/28/19 at 21:00 Docusate Sodium (Colace Liquid Cup) 100 mg BID NGT ; Start 01/27/19 at 22:00; Status Hold Terazosin HCl (Hytrin) 10 mg HS NGT Last administered on 01/31/19 21:16; Admin Dose 10 MG; Start 01/28/19 at 21:00 Levetiracetam 100 ml @ 400 mls/hr Q12 IVPB Last administered on 02/01/19 10:24; Admin Dose 400 MLS/HR; Start 01/28/19 at 09:00 Levothyroxine Sodium (Synthroid) 125 mcg BEFORE BREAKFAST NGT Last administered on 02/01/19 05:26; Admin Dose 125 MCG; Start 01/28/19 at 07:00 Ferrous Sulfate (Feosol Liquid Cup) 300 mg WITH MEALS GTB Last administered on 02/01/19 05:26; Admin Dose 300 MG; Start 01/28/19 at 11:30 Multivitamins (Multivitamin) 30 ml DAILY GTB Last administered on 02/01/19 10:23; Admin Dose 30 ML; Start 01/28/19 at 11:00 Lansoprazole (Prevacid) 30 mg DAILY@06 NGT Last administered on 02/01/19 05:16; Admin Dose 30 MG; Start 01/28/19 at 11:00 Diagnostic Test (Pha) (Accu-Chek) 1 ea Q4 XX Last administered on 02/01/19 05:14; Admin Dose 1 EA; Start 01/28/19 at 13:00 Nystatin/ Triamcinolone Acetonide (Mycolog Oint) 1 applic BID TOP Last administered on 02/01/19 10:28; Admin Dose 1 APPLIC; Start 01/28/19 at 22:30 Insulin Aspart (Novolog Insulin Pen) NOVOLOG *MILD* ALGORI... Q4 SC Last adm inistered on 02/01/19 11:01; Admin Dose 1 UNIT; Start 01/29/19 at 05:00 Albuterol/ Ipratropium (Duoneb) 3 ml Q6HWA RESP THERAPY HHN Last administered on 02/01/19 07:52; Admin Dose 3 ML; Start 01/29/19 at 14:00 Epoetin Dae-epbx (RETACRIT(non-esrd)) 40,000 unit Mo@1700 SC ; Start 02/03/19 at 17:00 Mupirocin (Bactroban) 1 applic BID TOP Last administered on 02/01/19 10:27; Admin Dose 1 APPLIC; Start 01/30/19 at 15:26; Stop 02/09/19 at 15:25 Vancomycin HCl 250 ml @ 125 mls/hr Q48H IVPB Last administered on 01/31/19 11:50; Admin Dose 125 MLS/HR; Start 01/31/19 at 11:00 Tobramycin Sulfate/Sodium Chloride (Nilesh Inhal) 300 mg BID RESP THERAPY NEB Last administered on 02/01/19 08:01; Admin Dose 300 MG; Start 01/30/19 at 20:00 Insulin Glargine (Lantus) 10 units DAILY@2000 SC Last administered on 01/31/19 21:15; Admin Dose 10 UNITS; Start 01/31/19 at 20:00 Insulin Human NPH (Humulin N) 3 unit Q8 SC Last administered on 02/01/19 05:16; Admin Dose 3 UNIT; Start 01/31/19 at 22:00 Potassium Chloride (Potassium Chloride Pwd/Soln) 20 meq BID NGT Last administered on 02/01/19 10:25; Admin Dose 20 MEQ; Start 02/01/19 at 09:00 NEDA ENRIQUEZ NP February 01, 2019 11:22
--- NOTE | 2019-02-01 12:47 | CONS ---
Consult Date/Type/Reason Admit Date/Time Jan 17, 2019 at 15:58 Initial Consult Date Requesting Provider: IVAN AKHTAR MD Date/Time of Note DATE: 02/01/19 TIME: 12:44 Subjective NO acute BP better - off levo gtt - con't med Rx. NO F/C/N/V/D - BP stable Objective Vitals Vital Signs Date Temp Pulse Resp B/P (MAP) Pulse Ox O2 O2 Flow FiO2 Time Delivery Rate 02/01/19 82 08:00 02/01/19 20 97 Nasal 2.0 07:55 Cannula 02/01/19 108/51 06:00 (70) 02/01/19 97.9 04:00 01/31/19 21 20:02 Intake and Output 01/31/19 01/31/19 02/01/19 1515:00 23:00 07:00 IntakeIntake Total 1878.08 ml 1030 ml 580 ml OutputOutput Total 975 ml 1210 ml 685 ml BalanceBalance 903.08 ml -180 ml -105 ml Exam General: WN/WD/NAD, AOx 1-2 HEENT: Unicetric/atraumatic/EOMI (follows commands) NECK: JVD elevated, no thyromegaly Lymph: no lymphadenopathy HEART: regular with no S3, II/ systolic murmur at apex, MILD SOB LUNGS: Coarse sounds ABD: soft, NT, ND, +BS : Intact Neuro: non focal SKIN: chronic changes EXT: trace edema Results/Medications Result Diagram: 02/01/19 0408 02/01/19 0408 Results 24 hrs Laboratory Tests Test 01/31/19 13:54 01/31/19 15:53 01/31/19 16:46 01/31/19 21:10 Bedside Glucose 211 222 H 237 H Sodium Level 148 H Potassium Level 3.4 L Chloride Level 111 H Carbon Dioxide 29 Level Anion Gap 8 Blood Urea 50 H Nitrogen Creatinine 1.46 H Est Glomerular Filtrat Rate mL/min Glucose Level 183 Calcium Level 7.7 L Test 02/01/19 00:23 02/01/19 04:08 02/01/19 04:56 02/01/19 05:13 Bedside Glucose 164 116 White Blood Count 31.4 H Red Blood Count 3.02 #L Hemoglobin 8.9 #L Hematocrit 26.8 #L Mean Corpuscular 88.7 Volume Mean Corpuscular 29.5 Hemoglobin Mean Corpuscular 33.2 Hemoglobin Concen t Red Cell 18.5 H Distribution Width Platelet Count 151 Mean Platelet 11.3 H Volume Immature 4.700 H Granulocytes % Neutrophils % Segmented 81 H Neutrophils % (Manual) Band Neutrophils 11 H % (Manual) Lymphocytes % Lymphocytes % 4 L (Manual) Reactive 1 H Lymphocytes % (Manual) Monocytes % Monocytes % 1 (Manual) Eosinophils % Basophils % Myelocytes % 2 H (Manual) Nucleated Red 6 H Blood Cells % Immature 1.490 H Granulocytes # Neutrophils # Neutrophils # 26.5 H (Manual) Band Neutrophils 3.4 H # Lymphocytes 1.2 (Manual) Lymphocytes # Reactive 0.3 H Lymphocytes # Monocytes # Monocytes # 0.3 (Manual) Eosinophils # Basophils # Myelocytes # 0.6 H Nucleated Red Blood Cells # Platelet Estimate NORMAL Giant Platelets 1 H Poikilocytosis 1+ Anisocytosis 2+ Macrocytosis 1+ Target Cells 1+ Sodium Level 152 H Potassium Level 3.0 L Chloride Level 113 H Carbon Dioxide 31 Level Anion Gap 8 Blood Urea 56 H Nitrogen Creatinine 1.42 H Est Glomerular Filtrat Rate mL/min Glucose Level 94 # Calcium Level 7.9 L Phosphorus Level 2.3 L Magnesium Level 1.7 Lab Scanned BLOOD TRANSFUSIO Report N Test 02/01/19 10:38 Bedside Glucose 152 Home Meds Active Scripts Apixaban* (Eliquis*) 5 Mg Tablet, 2.5 MG PO BID for 30 Days, TAB Prov:IVAN AKHTAR MD 12/20/18 Metoprolol Tartrate* (Lopressor*) 50 Mg Tab, 50 MG PO BID for 30 Days, TAB Prov:COOPER CARO 12/20/18 Reported Medications Furosemide* (Lasix*) 20 Mg Tablet, 20 MG PO BID, TAB 01/05/19 Polyethylene Glycol* (Miralax*) 17 Gm Powd.pack, 17 GM PO DAILY, #30 PACKET 12/15/18 Nifedipine* (Nifedipine ER*) 60 Mg Tablet.sa, 60 MG PO DAILY, TAB.SA 12/15/18 Bisacodyl* (Bisacodyl*) 5 Mg Tablet.dr, 10 MG PO BID PRN for CONSTIPATION, TAB 12/15/18 Pregabalin* (Lyrica*) 25 Mg Capsule, 25 MG PO TID, CAP 12/15/18 Bimatoprost* (Lumigan*) 0.01%-5 Ml Opht Drops, 1 DROP BOTH EYES HS, EA 03/02/18 Cetirizine Hcl* (Cetirizine Hcl*) 10 Mg Tablet, 10 MG PO DAILY, #30 TAB 03/02/18 Insulin Glargine* (Lantus*) 100 Unit/Ml Soln, 10 UNIT SC QHS, #1 VIAL 03/02/18 Ergocalciferol (Vitamin D2) (VITAMIN D2) 2,000 Unit Tablet, 2000 UNIT PO DAILY, TAB 03/02/18 Famotidine* (Famotidine*) 20 Mg Tablet, 20 MG PO DAILY, #30 TAB 03/02/18 Ferrous Sulfate* (Ferrous Sulfate*) 325 Mg Tabec, 325 MG PO BID, TAB 03/02/18 Nitroglycerin* (Nitrostat*) 0.4 Mg Tab.subl, 0.4 MG SL Q5MIN PRN for CHEST PAIN, BOTTLE 03/02/18 Terazosin Hcl* (Terazosin Hcl*) 10 Mg Capsule, 10 MG PO HS, CAP 03/02/18 Levothyroxine Sodium* (Levoxyl*) 125 Mcg Tablet, 125 MCG PO BEFORE BREAKFAST, #30 TAB 03/02/18 Allopurinol* (Allopurinol*) 100 Mg Tablet, 100 MG PO BID, TAB 03/02/18 Atorvastatin* (Atorvastatin*) 40 Mg Tablet, 40 MG PO QHS, #30 TAB 03/02/18 Folic Acid* (Folic Acid*) 1 Mg Tablet, 1 MG PO DAILY, TAB 03/02/18 Medications Current Medications Lactulose (Enulose) 20 gm DAILY PRN PO CONSTIPATION; Start 01/17/19 at 18:17 Acetaminophen (Tylenol Tab) 650 mg Q4H PRN PO PAIN Last administered on 01/23/19at 22:48; Admin Dose 650 MG; Start 01/17/19 at 18:17 Miscellaneous Information [facility] This patient ramirez... PRN PRN XX WOUND CARE; Start 01/17/19 at 18:17 Albuterol/ Ipratropium (Duoneb) 3 ml Q2H RESP THERAPY PRN HHN SHORTNESS OF BREATH; Start 01/17/19 at 18:17 Bisacodyl (Dulcolax) 10 mg BID PRN PO CONSTIPATION; Start 01/17/19 at 18:17; Status Hold Folic Acid (Folic Acid) 1 mg DAILY PO Last administered on 02/01/19 10:26; Admin Dose 1 MG; Start 01/17/19 at 18:17 Latanoprost (Xalatan) 1 drop HS BOTH EYES Last administered on 01/31/19 21:17; Admin Dose 1 DROP; Start 01/17/19 at 18:17 Nitroglycerin (Nitroglycerin (Sl Tab) 0.4 Mg) 0.4 tab Q5M PRN SL CHEST PAIN; Start 01/17/19 at 18:17 Nystatin (Nystatin Powder) 1 applic BID TOP Last administered on 02/01/19 10:29; Admin Dose 1 APPLIC; Start 01/17/19 at 18:17 IV Flush (NS 3 ml) 3 ml PER PROTOCOL IV ; Start 01/17/19 at 18:17 Miscellaneous Information 1 ea NOTE XX ; Start 01/17/19 at 18:17 Glucose (Glutose) 15 gm Q15M PRN PO DECREASED GLUCOSE; Start 01/17/19 at 18:17 Glucose (Glutose) 22.5 gm Q15M PRN PO DECREASED GLUCOSE; Start 01/17/19 at 18:17 Dextrose (D50w Syringe) 25 ml Q15M PRN IV DECREASED GLUCOSE; Start 01/17/19 at 18:17 Dextrose (D50w Syringe) 50 ml Q15M PRN IV DECREASED GLUCOSE; Start 01/17/19 at 18:17 Glucagon (Glucagen) 1 mg Q15M PRN IM DECREASED GLUCOSE; Start 01/17/19 at 18:17 Glucose (Glutose) 15 gm Q15M PRN BUCCAL DECREASED GLUCOSE; Start 01/17/19 at 18:17 Zinc Sulfate (Zinc Sulfate) 220 mg DAILY PO Last administered on 02/01/19 10:24; Admin Dose 220 MG; Start 01/17/19 at 18:17 Ascorbic Acid (Vitamin C) 250 mg DAILY PO Last administered on 02/01/19 10:25; Admin Dose 250 MG; Start 01/17/19 at 18:17 Multi-Ingredient Ointment (Aquaphor Oint 52.5 Gm) 1 applic BID TOP Last administered on 5/11/19at 10:58; Admin Dose 1 APPLIC; Start 01/17/19 at 18:17 Aspirin (Aspirin) 81 mg DAILY PO Last administered on 02/01/19 10:24; Admin Dose 81 MG; Start 01/17/19 at 18:17 Bisacodyl (Dulcolax Supp) 10 mg DAILY PRN [place] CONSTIPATION; Start 01/17/19 at 18:17 Zinc Acetate/ Diphenhydramine (Benadryl 2% Cr) 1 applic Q6H PRN TOP ITCHING Last administered on 01/26/19 07:54; Admin Dose 1 APPLIC; Start 01/19/19 at 16:37 IV Flush (NS 10 ml) 10 ml PRN PRN IV IV PROTOCOL; Start 01/20/19 at 14:30 Cyanocobalamin (Vitamin B12 Inj) 1,000 mcg Q7D IM ; Start 02/03/19 at 09:00 Metoprolol Tartrate (Lopressor) 5 mg Q4H PRN IV HR>110 Hold SBP<100; Start 01/26/19 at 14:30 Furosemide (Lasix) 40 mg BID DIURETICS IV Last administered on 02/01/19 05:14; Admin Dose 40 MG; Start 01/27/19 at 18:00 Vancomycin HCl (Vanco Iv Per Pharmacy) VANCOMYCIN PER PHARMACY PER PROTOCOL XX ; Start 01/27/19 at 12:00 Norepinephrine 250 ml @ 1.875 mls/ hr TITRATE IV Last administered on 01/31/19 05:43; Admin Dose 5.625 MLS/HR; Start 01/27/19 at 12:30 Methylprednisolone Sodium Succinate (Solu-Medrol) 40 mg Q8 IV Last administered on 02/01/19 05:15; Admin Dose 40 MG; Start 01/27/19 at 14:00 Enoxaparin Sodium (Lovenox) 60 mg DAILY SC Last administered on 02/01/19 10:44; Admin Dose 60 MG; Start 01/28/19 at 09:00 Lorazepam (Ativan) 1 mg Q2 PRN IV SEIZURES Last administered on 01/28/19 19:29; Admin Dose 1 MG; Start 01/27/19 at 14:00 Aztreonam 50 ml @ 100 mls/hr Q12 IVPB Last administered on 02/01/19 10:23; Admin Dose 100 MLS/HR; Start 01/27/19 at 16:30 Metronidazole 100 ml @ 100 mls/hr Q8 IVPB Last administered on 02/01/19 05:14; Admin Dose 100 MLS/HR; Start 01/27/19 at 15:00 Atorvastatin Calcium (Lipitor) 40 mg QHS NGT Last administered on 01/31/19 21:16; Admin Dose 40 MG; Start 01/28/19 at 21:00 Docusate Sodium (Colace Liquid Cup) 100 mg BID NGT ; Start 01/27/19 at 22:00; Status Hold Terazosin HCl (Hytrin) 10 mg HS NGT Last administered on 01/31/19 21:16; Admin Dose 10 MG; Start 01/28/19 at 21:00 Levetiracetam 100 ml @ 400 mls/hr Q12 IVPB Last administered on 02/01/19 10:24; Admin Dose 400 MLS/HR; Start 01/28/19 at 09:00 Levothyroxine Sodium (Synthroid) 125 mcg BEFORE BREAKFAST NGT Last administered on 02/01/19 05:26; Admin Dose 125 MCG; Start 01/28/19 at 07:00 Ferrous Sulfate (Feosol Liquid Cup) 300 mg WITH MEALS GTB Last administered on 02/01/19 05:26; Admin Dose 300 MG; Start 01/28/19 at 11:30 Multivitamins (Multivitamin) 30 ml DAILY GTB Last administered on 02/01/19 10:23; Admin Dose 30 ML; Start 01/28/19 at 11:00 Lansoprazole (Prevacid) 30 mg DAILY@06 NGT Last administered on 02/01/19 05:16; Admin Dose 30 MG; Start 01/28/19 at 11:00 Diagnostic Test (Pha) (Accu-Chek) 1 ea Q4 XX Last administered on 02/01/19 05:14; Admin Dose 1 EA; Start 01/28/19 at 13:00 Nystatin/ Triamcinolone Acetonide (Mycolog Oint) 1 applic BID TOP Last administered on 02/01/19 10:28; Admin Dose 1 APPLIC; Start 01/28/19 at 22:30 Insulin Aspart (Novolog Insulin Pen) NOVOLOG *MILD* ALGORI... Q4 SC Last administered on 02/01/19 11:01; Admin Dose 1 UNIT; Start 01/29/19 at 05:00 Albuterol/ Ipratropium (Duoneb) 3 ml Q6HWA RESP THERAPY HHN Last administered on 02/01/19 07:52; Admin Dose 3 ML; Start 01/29/19 at 14:00 Epoetin Dae-epbx (RETACRIT(non-esrd)) 40,000 unit Mo@1700 SC ; Start 02/03/19 at 17:00 Mupirocin (Bactroban) 1 applic BID TOP Last administered on 02/01/19 10:27; Admin Dose 1 APPLIC; Start 01/30/19 at 15:26; Stop 02/09/19 at 15:25 Vancomycin HCl 250 ml @ 125 mls/hr Q48H IVPB Last administered on 01/31/19 11:50; Admin Dose 125 MLS/HR; Start 01/31/19 at 11:00 Tobramycin Sulfate/Sodium Chloride (Nilesh Inhal) 300 mg BID RESP THERAPY NEB Last administered on 02/01/19 08:01; Admin Dose 300 MG; Start 01/30/19 at 20:00 Insulin Glargine (Lantus) 10 units DAILY@2000 SC Last administered on 01/31/19 21:15; Admin Dose 10 UNITS; Start 01/31/19 at 20:00 Insulin Human NPH (Humulin N) 3 unit Q8 SC Last administered on 02/01/19 05 :16; Admin Dose 3 UNIT; Start 01/31/19 at 22:00 Potassium Chloride (Potassium Chloride Pwd/Soln) 20 meq BID NGT Last administered on 02/01/19 10:25; Admin Dose 20 MEQ; Start 02/01/19 at 09:00 Assessment/Plan Hospital Course (Demo Recall) 1. Atrial fibrillation, currently rate controlled.-off systemic anticoagulation due to anemia. On ASA only now - RATE CONTROLLED. Stable now. 2. Possible congestive heart failure by chest x-ray, which will be diastolic, acute on chronic by most recent echo with an EF of 60%.Spot diuresis as needed. Con't to follow. Euvolemic by exam. Stopped IVF now. OK to hydrate as needed. 3. Tricuspid regurgitation, moderate by most recent echo. 4. Acute on chronic renal failure - Cr 1.42 - avoid nephrotoxic meds. Dr. Alatorre follow. Stable. Reasonable urine output. 5. Possible pneumonia - on anti-bx now. ID follows On pressors now. 6. History of coronary artery disease, status post coronary artery bypass graft surgery. Treated. 7. Dyslipidemia. 8. Rheumatoid arthritis - Rx per rheumatology. 9. Groin cellulitis. 10. Anemia-worsening again today requiring transfusions PRBC's.Now post-op s/p endoscopy ? findings - H/H at 6.4 - blood Rx to follow. Now improved to 8.9. 11. Diabetes mellitus. 12. Sepsis LOU PATINO MD February 01, 2019 12:47
--- NOTE | 2019-02-01 13:55 | CONS ---
Consult Date/Type/Reason Admit Date/Time Jan 17, 2019 at 15:58 Initial Consult Date 01/18/19 Type of Consultation: Pulm/CCM Requesting Provider: IVAN AKHTAR MD Date/Time of Note DATE: 02/01/19 TIME: 13:52 Subjective No overnight events. Confused and weak. Objective Vitals Vital Signs Date Temp Pulse Resp B/P (MAP) Pulse Ox O2 O2 Flow FiO2 Time Delivery Rate 02/01/19 85 12:00 02/01/19 20 97 Nasal 2.0 07:55 Cannula 02/01/19 108/51 06:00 (70) 02/01/19 97.9 04:00 01/31/19 21 20:02 Intake and Output 01/31/19 01/31/19 02/01/19 1515:00 23:00 07:00 IntakeIntake Total 1878.08 ml 1030 ml 580 ml OutputOutput Total 975 ml 1210 ml 685 ml BalanceBalance 903.08 ml -180 ml -105 ml Exam HEENT: Neck supple; no JVD; no LAD CVS: RRR, S1 and S2 CHEST: Coarse BS with occ rhonchi B/L ABD: Soft, NT, + BS EXT: No c/c/e; bullous skin lesions Results/Medications Result Diagram: 02/01/19 0408 02/01/19 0408 Results 24 hrs Laboratory Tests Test 01/31/19 13:54 01/31/19 15:53 01/31/19 16:46 01/31/19 21:10 Bedside Glucose 211 222 H 237 H Sodium Level 148 H Potassium Level 3.4 L Chloride Level 111 H Carbon Dioxide 29 Level Anion Gap 8 Blood Urea 50 H Nitrogen Creatinine 1.46 H Est Glomerular Filtrat Rate mL/min Glucose Level 183 Calcium Level 7.7 L Test 02/01/19 00:23 02/01/19 04:08 02/01/19 04:56 02/01/19 05:13 Bedside Glucose 164 116 White Blood Count 31.4 H Red Blood Count 3.02 #L Hemoglobin 8.9 #L Hematocrit 26.8 #L Mean Corpuscular 88.7 Volume Mean Corpuscular 29.5 Hemoglobin Mean Corpuscular 33.2 Hemoglobin Concen t Red Cell 18.5 H Distribution Width Platelet Count 151 Mean Platelet 11.3 H Volume Immature 4.700 H Granulocytes % Neutrophils % Segmented 81 H Neutrophils % (Manual) Band Neutrophils 11 H % (Manual) Lymphocytes % Lymphocytes % 4 L (Manual) Reactive 1 H Lymphocytes % (Manual) Monocytes % Monocytes % 1 (Manual) Eosinophils % Basophils % Myelocytes % 2 H (Manual) Nucleated Red 6 H Blood Cells % Immature 1.490 H Granulocytes # Neutrophils # Neutrophils # 26.5 H (Manual) Band Neutrophils 3.4 H # Lymphocytes 1.2 (Manual) Lymphocytes # Reactive 0.3 H Lymphocytes # Monocytes # Monocytes # 0.3 (Manual) Eosinophils # Basophils # Myelocytes # 0.6 H Nucleated Red Blood Cells # Platelet Estimate NORMAL Giant Platelets 1 H Poikilocytosis 1+ Anisocytosis 2+ Macrocytosis 1+ Target Cells 1+ Sodium Level 152 H Potassium Level 3.0 L Chloride Level 113 H Carbon Dioxide 31 Level Anion Gap 8 Blood Urea 56 H Nitrogen Creatinine 1.42 H Est Glomerular Filtrat Rate mL/min Glucose Level 94 # Calcium Level 7.9 L Phosphorus Level 2.3 L Magnesium Level 1.7 Lab Scanned BLOOD TRANSFUSIO Report N Test 02/01/19 10:38 02/01/19 12:57 Bedside Glucose 152 148 Home Meds Active Scripts Apixaban* (Eliquis*) 5 Mg Tablet, 2.5 MG PO BID for 30 Days, TAB Prov:IVAN AKHTAR MD 12/20/18 Metoprolol Tartrate* (Lopressor*) 50 Mg Tab, 50 MG PO BID for 30 Days, TAB Prov:COOPER CARO 12/20/18 Reported Medications Furosemide* (Lasix*) 20 Mg Tablet, 20 MG PO BID, TAB 01/05/19 Polyethylene Glycol* (Miralax*) 17 Gm Powd.pack, 17 GM PO DAILY, #30 PACKET 12/15/18 Nifedipine* (Nifedipine ER*) 60 Mg Tablet.sa, 60 MG PO DAILY, TAB.SA 12/15/18 Bisacodyl* (Bisacodyl*) 5 Mg Tablet.dr, 10 MG PO BID PRN for CONSTIPATION, TAB 12/15/18 Pregabalin* (Lyrica*) 25 Mg Capsule, 25 MG PO TID, CAP 12/15/18 Bimatoprost* (Lumigan*) 0.01%-5 Ml Opht Drops, 1 DROP BOTH EYES HS, EA 03/02/18 Cetirizine Hcl* (Cetirizine Hcl*) 10 Mg Tablet, 10 MG PO DAILY, #30 TAB 03/02/18 Insulin Glargine* (Lantus*) 100 Unit/Ml Soln, 10 UNIT SC QHS, #1 VIAL 03/02/18 Ergocalciferol (Vitamin D2) (VITAMIN D2) 2,000 Unit Tablet, 2000 UNIT PO DAILY, TAB 03/02/18 Famotidine* (Famotidine*) 20 Mg Tablet, 20 MG PO DAILY, #30 TAB 03/02/18 Ferrous Sulfate* (Ferrous Sulfate*) 325 Mg Tabec, 325 MG PO BID, TAB 03/02/18 Nitroglycerin* (Nitrostat*) 0.4 Mg Tab.subl, 0.4 MG SL Q5MIN PRN for CHEST PAIN, BOTTLE 03/02/18 Terazosin Hcl* (Terazosin Hcl*) 10 Mg Capsule, 10 MG PO HS, CAP 03/02/18 Levothyroxine Sodium* (Levoxyl*) 125 Mcg Tablet, 125 MCG PO BEFORE BREAKFAST, #30 TAB 03/02/18 Allopurinol* (Allopurinol*) 100 Mg Tablet, 100 MG PO BID, TAB 03/02/18 Atorvastatin* (Atorvastatin*) 40 Mg Tablet, 40 MG PO QHS, #30 TAB 03/02/18 Folic Acid* (Folic Acid*) 1 Mg Tablet, 1 MG PO DAILY, TAB 03/02/18 Medications Current Medications Lactulose (Enulose) 20 gm DAILY PRN PO CONSTIPATION; Start 01/17/19 at 18:17 Acetaminophen (Tylenol Tab) 650 mg Q4H PRN PO PAIN Last administered on 01/23/19at 22:48; Admin Dose 650 MG; Start 01/17/19 at 18:17 Misc[facility] This patient ramirez... PRN PRN XX WOUND CARE; Start 01/17/19 at 18:17 Albuterol/ Ipratropium (Duoneb) 3 ml Q2H RESP THERAPY PRN HHN SHORTNESS OF BREATH; Start 01/17/19 at 18:17 Bisacodyl (Dulcolax) 10 mg BID PRN PO CONSTIPATION; Start 01/17/19 at 18:17; Status Hold Folic Acid (Folic Acid) 1 mg DAILY PO Last administered on 02/01/19 10:26; Admin Dose 1 MG; Start 01/17/19 at 18:17 Latanoprost (Xalatan) 1 drop HS BOTH EYES Last administered on 01/31/19 21:17; Admin Dose 1 DROP; Start 01/17/19 at 18:17 Nitroglycerin (Nitroglycerin (Sl Tab) 0.4 Mg) 0.4 tab Q5M PRN SL CHEST PAIN; Start 01/17/19 at 18:17 Nystatin (Nystatin Powder) 1 applic BID TOP Last administered on 02/01/19 10:29; Admin Dose 1 APPLIC; Start 01/17/19 at 18:17 IV Flush (NS 3 ml) 3 ml PER PROTOCOL IV ; Start 01/17/19 at 18:17 Miscellaneous Information 1 ea NOTE XX ; Start 01/17/19 at 18:17 Glucose (Glutose) 15 gm Q15M PRN PO DECREASED GLUCOSE; Start 01/17/19 at 18:17 Glucose (Glutose) 22.5 gm Q15M PRN PO DECREASED GLUCOSE; Start 01/17/19 at 18:17 Dextrose (D50w Syringe) 25 ml Q15M PRN IV DECREASED GLUCOSE; Start 01/17/19 at 18:17 Dextrose (D50w Syringe) 50 ml Q15M PRN IV DECREASED GLUCOSE; Start 01/17/19 at 18:17 Glucagon (Glucagen) 1 mg Q15M PRN IM DECREASED GLUCOSE; Start 01/17/19 at 18:17 Glucose (Glutose) 15 gm Q15M PRN BUCCAL DECREASED GLUCOSE; Start 01/17/19 at 18:17 Zinc Sulfate (Zinc Sulfate) 220 mg DAILY PO Last administered on 02/01/19 10:24; Admin Dose 220 MG; Start 01/17/19 at 18:17 Ascorbic Acid (Vitamin C) 250 mg DAILY PO Last administered on 02/01/19 10:25; Admin Dose 250 MG; Start 01/17/19 at 18:17 Multi-Ingredient Ointment (Aquaphor Oint 52.5 Gm) 1 applic BID TOP Last a dministered on 02/01/19 10:58; Admin Dose 1 APPLIC; Start 01/17/19 at 18:17 Aspirin (Aspirin) 81 mg DAILY PO Last administered on 02/01/19 10:24; Admin Dose 81 MG; Start 01/17/19 at 18:17 Bisacodyl (Dulcolax Supp) 10 mg DAILY PRN [place] CONSTIPATION; Start 01/17/19 at 18:17 Zinc Acetate/ Diphenhydramine (Benadryl 2% Cr) 1 applic Q6H PRN [place] ITCHING Last administered on 01/26/19 07:54; Admin Dose 1 APPLIC; Start 01/19/19 at 16:37 IV Flush (NS 10 ml) 10 ml PRN PRN IV IV PROTOCOL; Start 01/20/19 at 14:30 Cyanocobalamin (Vitamin B12 Inj) 1,000 mcg Q7D IM ; Start 02/03/19 at 09:00 Metoprolol Tartrate (Lopressor) 5 mg Q4H PRN IV HR>110 Hold SBP<100; Start 01/26/19 at 14:30 Furosemide (Lasix) 40 mg BID DIURETICS IV Last administered on 02/01/19 05:14; Admin Dose 40 MG; Start 01/27/19 at 18:00 Vancomycin HCl (Vanco Iv Per Pharmacy) VANCOMYCIN PER PHARMACY PER PROTOCOL XX ; Start 01/27/19 at 12:00 Norepinephrine 250 ml @ 1.875 mls/ hr TITRATE IV Last administered on 01/31/19 05:43; Admin Dose 5.625 MLS/HR; Start 01/27/19 at 12:30 Methylprednisolone Sodium Succinate (Solu-Medrol) 40 mg Q8 IV Last administered on 02/01/19 05:15; Admin Dose 40 MG; Start 01/27/19 at 14:00 Enoxaparin Sodium (Lovenox) 60 mg DAILY SC Last administered on 02/01/19 10:44; Admin Dose 60 MG; Start 01/28/19 at 09:00 Lorazepam (Ativan) 1 mg Q2 PRN IV SEIZURES Last administered on 01/28/19 19:29; Admin Dose 1 MG; Start 01/27/19 at 14:00 Aztreonam 50 ml @ 100 mls/hr Q12 IVPB Last administered on 02/01/19 10:23; Admin Dose 100 MLS/HR; Start 01/27/19 at 16:30 Metronidazole 100 ml @ 100 mls/hr Q8 IVPB Last administered on 02/01/19 05:14; Admin Dose 100 MLS/HR; Start 01/27/19 at 15:00 Atorvastatin Calcium (Lipitor) 40 mg QHS NGT Last administered on 01/31/19 21:16; Admin Dose 40 MG; Start 01/28/19 at 21:00 Docusate Sodium (Colace Liquid Cup) 100 mg BID NGT ; Start 01/27/19 at 22:00; Status Hold Terazosin HCl (Hytrin) 10 mg HS NGT Last administered on 01/31/19 21:16; Admin Dose 10 MG; Start 01/28/19 at 21:00 Levetiracetam 100 ml @ 400 mls/hr Q12 IVPB Last administered on 02/01/19 10:24; Admin Dose 400 MLS/HR; Start 01/28/19 at 09:00 Levothyroxine Sodium (Synthroid) 125 mcg BEFORE BREAKFAST NGT Last administered on 02/01/19 05:26; Admin Dose 125 MCG; Start 01/28/19 at 07:00 Ferrous Sulfate (Feosol Liquid Cup) 300 mg WITH MEALS GTB Last administered on 02/01/19 12:58; Admin Dose 300 MG; Start 01/28/19 at 11:30 Multivitamins (Multivitamin) 30 ml DAILY GTB Last administered on 02/01/19 10:23; Admin Dose 30 ML; Start 01/28/19 at 11:00 Lansoprazole (Prevacid) 30 mg DAILY@06 NGT Last administered on 02/01/19 05:16; Admin Dose 30 MG; Start 01/28/19 at 11:00 Diagnostic Test (Pha) (Accu-Chek) 1 ea Q4 XX Last administered on 02/01/19 13:03; Admin Dose 1 EA; Start 01/28/19 at 13:00 Nystatin/ Triamcinolone Acetonide (Mycolog Oint) 1 applic BID TOP Last administered on 02/01/19 10:28; Admin Dose 1 APPLIC; Start 01/28/19 at 22:30 Insulin Aspart (Novolog Insulin Pen) NOVOLOG *MILD* ALGORI... Q4 SC Last administered on 02/01/19 13:03; Admin Dose 1 UNIT; Start 01/29/19 at 05:00 Albuterol/ Ipratropium (Duoneb) 3 ml Q6HWA RESP THERAPY HHN Last administered on 02/01/19at 07:52; Admin Dose 3 ML; Start 01/29/19 at 14:00 Epoetin Dae-epbx (RETACRIT(non-esrd)) 40,000 unit Mo@1700 SC ; Start 02/03/19 at 17:00 Mupirocin (Bactroban) 1 applic BID TOP Last administered on 02/01/19at 10:27; Admin Dose 1 APPLIC; Start 01/30/19 at 15:26; Stop 02/09/19 at 15:25 Vancomycin HCl 250 ml @ 125 mls/hr Q48H IVPB Last administered on 01/31/19at 11:50; Admin Dose 125 MLS/HR; Start 01/31/19 at 11:00 Tobramycin Sulfate/Sodium Chloride (Nilesh Inhal) 300 mg BID RESP THERAPY NEB Last administered on 02/01/19at 08:01; Admin Dose 300 MG; Start 01/30/19 at 20:00 Insulin Glargine (Lantus) 10 units DAILY@2000 SC Last administered on 01/31/19at 21:15; Admin Dose 10 UNITS; Start 01/31/19 at 20:00 Insulin Human NPH (Humulin N) 3 unit Q8 SC Last administered on 02/01/19at 05:16; Admin Dose 3 UNIT; Start 01/31/19 at 22:00 Potassium Chloride (Potassium Chloride Pwd/Soln) 20 meq BID NGT Last administered on 02/01/19at 10:25; Admin Dose 20 MEQ; Start 02/01/19 at 09:00 Assessment/Plan Assessment/Plan (Daily) IMP: 1. Acute hypoxemic respiratory failure likely secondary to combination of volume overload and pneumonia 2. Encephalopathy underlying dementia versus toxic metabolic 3. Valvular heart disease 4. Severe dysphagia 5. Septic shock likely secondary to above 6. Anemia, no active GI bleeding 7. Skin diffuse excoriating skin lesion unclear etiology not consistent with history of "red man" syndrome. or pemphigus. 8. Anemia RECS: 1. Continue vasopressors to maintain MAP > 65 mm Hg 2. Continue broad-spectrum antibiotics 3. Aspiration precautions and tube feeding 4. Monitor H&H 5. Palliative care consult appreciated. 6. Replete K+ and Mg 7. Increase free H20 Critical care time 40 minutes TINO PAL MD February 01, 2019 13:55
--- NOTE | 2019-02-01 14:57 | PN ---
Date/Time of Note Date/Time of Note DATE: 02/01/19 TIME: 14:56 Assessment/Plan VTE Prophylaxis Risk score (from [facility] [place])>0 risk: 11 SCD applied (from [facility] [place]): No SCD contraindicated: bilateral LE trauma Pharmacological prophylaxis: LMWH Lines/Catheters IV Catheter Type (from [facility] Central Line Central line still needed: Yes Urinary Cath still in place: Yes Reason Cath still needed: urinary retention Assessment/Plan Hospital Course 1. Sepsis, WBC elevated , lactic acidosis 2. Severe anemia 3. Chronic renal failure likely secondary to sepsis 4. Hypertension. 5. Hyperlipidemia. 6. Hypothyroidism. 7. Normocytic normochromic chronic anemia with recent hemoglobin drop. 8. Bilateral groin cellulitis more likely associated with mateus, patches in groin and axilla bilaterally. skin peeling 9. History of rheumatoid arthritis with joint deformities. 10. Diabetes type 2. 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 Peripheral vascular disease. 13. Chronic a.fib 14. right arm edema 15. Neoplasm per CT abdomen. 4.3 cm cystic lesion along the pancreas body, enlarged since 10/10/2012 (previously 2.4 cm). 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 16. Possible allergic skin reaction, biopsy is obtained 17. altered mental status delirium vs stroke, resolved 18. Hypernatremia 152 Assessment/Plan -LP per neuro ordered -off levophed -can go to tele - cw vanco, tobramycin sputum + E coli? drug reaction -ophthalmology referral, called [id number] 2019, left a message - replete k - fu Neuro recs and neuro checks ? LP -on ASA, statin - NG -cw nebs/ solumedrol 40 iv q 8 - GI and DVT prophylaxis -oncology consul dr Lorenzo aware: he said Ca 19-9 is negative indicating unlikely malignant. This may be a pseudocyst or a precancerous pancreatic lesion. It has been growing in size but patient is asymptomatic. EUS with biopsy is recommended and can either be done inpatient or outpatient setting. The patient at this time is unlikely a candidate for a Whipple surgery however. -skin care - s/p skin biopsy results: biopsy of skin: Right proximal forearm skin biopsy: -- Solar elastosis with dermal edema and a few interstitial neutrophils with lymphocytes, vascular and fibroblast proliferation. -- No eosinophils are noted. -- No evidence of vasculitis and no extravasation of erythrocyte is seen. -- No evidence of malignancy. Result Diagram: 02/01/19 0408 02/01/19 0408 Results 24hrs Laboratory Tests Test 01/31/19 15:53 01/31/19 16:46 01/31/19 21:10 02/01/19 00:23 Sodium Level 148 H Potassium Level 3.4 L Chloride Level 111 H Carbon Dioxide 29 Level Anion Gap 8 Blood Urea 50 H Nitrogen Creatinine 1.46 H Est Glomerular Filtrat Rate mL/min Glucose Level 183 Calcium Level 7.7 L Bedside Glucose 222 H 237 H 164 Test 02/01/19 04:08 02/01/19 04:56 02/01/19 05:13 02/01/19 10:38 White Blood Count 31.4 H Red Blood Count 3.02 #L Hemoglobin 8.9 #L Hematocrit 26.8 #L Mean Corpuscular 88.7 Volume Mean Corpuscular 29.5 Hemoglobin Mean Corpuscular 33.2 Hemoglobin Concen t Red Cell 18.5 H Distribution Width Platelet Count 151 Mean Platelet 11.3 H Volume Immature 4.700 H Granulocytes % Neutrophils % Segmented 81 H Neutrophils % (Manual) Band Neutrophils 11 H % (Manual) Lymphocytes % Lymphocytes % 4 L (Manual) Reactive 1 H Lymphocytes % (Manual) Monocytes % Monocytes % 1 (Manual) Eosinophils % Basophils % Myelocytes % 2 H (Manual) Nucleated Red 6 H Blood Cells % Immature 1.490 H Granulocytes # Neutrophils # Neutrophils # 26.5 H (Manual) Band Neutrophils 3.4 H # Lymphocytes 1.2 (Manual) Lymphocytes # Reactive 0.3 H Lymphocytes # Monocytes # Monocytes # 0.3 (Manual) Eosinophils # Basophils # Myelocytes # 0.6 H Nucleated Red Blood Cells # Platelet Estimate NORMAL Giant Platelets 1 H Poikilocytosis 1+ Anisocytosis 2+ Macrocytosis 1+ Target Cells 1+ Sodium Level 152 H Potassium Level 3.0 L Chloride Level 113 H Carbon Dioxide 31 Level Anion Gap 8 Blood Urea 56 H Nitrogen Creatinine 1.42 H Est Glomerular Filtrat Rate mL/min Glucose Level 94 # Calcium Level 7.9 L Phosphorus Level 2.3 L Magnesium Level 1.7 Lab Scanned BLOOD TRANSFUSIO Report N Bedside Glucose 116 152 Test 02/01/19 12:57 Bedside Glucose 148 Subjective 24 Hr Interval Summary Constitutional: no complaints Musculoskeletal: back pain, restricted range of motion Exam/Review of Systems Exam Vitals Vital Signs Date Temp Pulse Resp B/P (MAP) Pulse Ox O2 O2 Flow FiO2 Time Delivery Rate 02/01/19 2.0 14:33 02/01/19 87 20 98 Nasal 14:10 Cannula 02/01/19 108/51 06:00 (70) 02/01/19 97.9 04:00 01/31/19 21 20:02 Intake and Output 01/31/19 01/31/19 02/01/19 1515:00 23:00 07:00 IntakeIntake Total 1878.08 ml 1030 ml 580 ml OutputOutput Total 975 ml 1210 ml 685 ml BalanceBalance 903.08 ml -180 ml -105 ml Constitutional: alert, oriented (2) Head: normocephalic Eyes: other (musle paresis) Neck: supple Respiratory: diminished breath sounds Cardiovascular: regular rate and rhythm Gastrointestinal: soft Genitourinary - Male: other (rinaldi) Skin: other (peeling) Results Results 24hrs Laboratory Tests Test 01/31/19 15:53 01/31/19 16:46 01/31/19 21:10 02/01/19 00:23 Sodium Level 148 H Potassium Level 3.4 L Chloride Level 111 H Carbon Dioxide 29 Level Anion Gap 8 Blood Urea 50 H Nitrogen Creatinine 1.46 H Est Glomerular Filtrat Rate mL/min Glucose Level 183 Calcium Level 7.7 L Bedside Glucose 222 H 237 H 164 Test 02/01/19 04:08 02/01/19 04:56 02/01/19 05:13 02/01/19 10:38 White Blood Count 31.4 H Red Blood Count 3.02 #L Hemoglobin 8.9 #L Hematocrit 26.8 #L Mean Corpuscular 88.7 Volume Mean Corpuscular 29.5 Hemoglobin Mean Corpuscular 33.2 Hemoglobin Concen t Red Cell 18.5 H Distribution Width Platelet Count 151 Mean Platelet 11.3 H Volume Immature 4.700 H Granulocytes % Neutrophils % Segmented 81 H Neutrophils % (Manual) Band Neutrophils 11 H % (Manual) Lymphocytes % Lymphocytes % 4 L (Manual) Reactive 1 H Lymphocytes % (Manual) Monocytes % Monocytes % 1 (Manual) Eosinophils % Basophils % Myelocytes % 2 H (Manual) Nucleated Red 6 H Blood Cells % Immature 1.490 H Granulocytes # Neutrophils # Neutrophils # 26.5 H (Manual) Band Neutrophils 3.4 H # Lymphocytes 1.2 (Manual) Lymphocytes # Reactive 0.3 H Lymphocytes # Monocytes # Monocytes # 0.3 (Manual) Eosinophils # Basophils # Myelocytes # 0.6 H Nucleated Red Blood Cells # Platelet Estimate NORMAL Giant Platelets 1 H Poikilocytosis 1+ Anisocytosis 2+ Macrocytosis 1+ Target Cells 1+ Sodium Level 152 H Potassium Level 3.0 L Chloride Level 113 H Carbon Dioxide 31 Level Anion Gap 8 Blood Urea 56 H Nitrogen Creatinine 1.42 H Est Glomerular Filtrat Rate mL/min Glucose Level 94 # Calcium Level 7.9 L Phosphorus Level 2.3 L Magnesium Level 1.7 Lab Scanned BLOOD TRANSFUSIO Report N Bedside Glucose 116 152 Test 02/01/19 12:57 Bedside Glucose 148 Medications Medication Current Medications Lactulose (Enulose) 20 gm DAILY PRN PO CONSTIPATION; Start 01/17/19 at 18:17 Acetaminophen (Tylenol Tab) 650 mg Q4H PRN PO PAIN Last administered on 01/23/19at 22:48; Admin Dose 650 MG; Start 01/17/19 at 18:17 [facility] This patient ramirez... PRN PRN XX WOUND CARE; Start 01/17/19 at 18:17 Albuterol/ Ipratropium (Duoneb) 3 ml Q2H RESP THERAPY PRN HHN SHORTNESS OF BREATH; Start 01/17/19 at 18:17 Bisacodyl (Dulcolax) 10 mg BID PRN PO CONSTIPATION; Start 01/17/19 at 18:17; Status Hold Folic Acid (Folic Acid) 1 mg DAILY PO Last administered on 02/01/19at 10:26; Admin Dose 1 MG; Start 01/17/19 at 18:17 Latanoprost (Xalatan) 1 drop HS BOTH EYES Last administered on 01/31/19 21:17; Admin Dose 1 DROP; Start 01/17/19 at 18:17 Nitroglycerin (Nitroglycerin (Sl Tab) 0.4 Mg) 0.4 tab Q5M PRN SL CHEST PAIN; Start 01/17/19 at 18:17 Nystatin (Nystatin Powder) 1 applic BID TOP Last administered on 02/01/19at 10:29; Admin Dose 1 APPLIC; Start 01/17/19 at 18:17 IV Flush (NS 3 ml) 3 ml PER PROTOCOL IV ; Start 01/17/19 at 18:17 Miscellaneous Information 1 ea NOTE XX ; Start 01/17/19 at 18:17 Glucose (Glutose) 15 gm Q15M PRN PO DECREASED GLUCOSE; Start 01/17/19 at 18:17 Glucose (Glutose) 22.5 gm Q15M PRN PO DECREASED GLUCOSE; Start 01/17/19 at 18:17 Dextrose (D50w Syringe) 25 ml Q15M PRN IV DECREASED GLUCOSE; Start 01/17/19 at 18:17 Dextrose (D50w Syringe) 50 ml Q15M PRN IV DECREASED GLUCOSE; Start 01/17/19 at 18:17 Glucagon (Glucagen) 1 mg Q15M PRN IM DECREASED GLUCOSE; Start 01/17/19 at 18:17 Glucose (Glutose) 15 gm Q15M PRN BUCCAL DECREASED GLUCOSE; Start 01/17/19 at 18:17 Zinc Sulfate (Zinc Sulfate) 220 mg DAILY PO Last administered on 02/01/19at 10:24; Admin Dose 220 MG; Start 01/17/19 at 18:17 Ascorbic Acid (Vitamin C) 250 mg DAILY PO Last administered on 02/01/19at 10:25; Admin Dose 250 MG; Start 01/17/19 at 18:17 Multi-Ingredient Ointment (Aquaphor Oint 52.5 Gm) 1 applic BID TOP Last administered on 02/01/19at 10:58; Admin Dose 1 APPLIC; Start 01/17/19 at 18:17 Aspirin (Aspirin) 81 mg DAILY PO Last administered on 02/01/19at 10:24; Admin Dose 81 MG; Start 01/17/19 at 18:17 Bisacodyl (Dulcolax Supp) 10 mg DAILY PRN MD CONSTIPATION; Start 01/17/19 at 18:17 Zinc Acetate/ Diphenhydramine (Benadryl 2% Cr) 1 applic Q6H PRN TOP ITCHING Last administered on 01/26/19at 07:54; Admin Dose 1 APPLIC; Start 01/19/19 at 16:37 IV Flush (NS 10 ml) 10 ml PRN PRN IV IV PROTOCOL; Start 01/20/19 at 14:30 Cyanocobalamin (Vitamin B12 Inj) 1,000 mcg Q7D IM ; Start 02/03/19 at 09:00 Metoprolol Tartrate (Lopressor) 5 mg Q4H PRN IV HR>110 Hold SBP<100; Start 01/26/19 at 14:30 Furosemide (Lasix) 40 mg BID DIURETICS IV Last administered on 02/01/19 05:14; Admin Dose 40 MG; Start 01/27/19 at 18:00 Vancomycin HCl (Vanco Iv Per Pharmacy) VANCOMYCIN PER PHARMACY PER PROTOCOL XX ; Start 01/27/19 at 12:00 Norepinephrine 250 ml @ 1.875 mls/ hr TITRATE IV Last administered on 01/31/19 05:43; Admin Dose 5.625 MLS/HR; Start 01/27/19 at 12:30 Methylprednisolone Sodium Succinate (Solu-Medrol) 40 mg Q8 IV Last administered on 02/01/19 05:15; Admin Dose 40 MG; Start 01/27/19 at 14:00 Enoxaparin Sodium (Lovenox) 60 mg DAILY SC Last administered on 02/01/19 10:44; Admin Dose 60 MG; Start 01/28/19 at 09:00 Lorazepam (Ativan) 1 mg Q2 PRN IV SEIZURES Last administered on 01/28/19 19:29; Admin Dose 1 MG; Start 01/27/19 at 14:00 Aztreonam 50 ml @ 100 mls/hr Q12 IVPB Last administered on 02/01/19 10:23; A dmin Dose 100 MLS/HR; Start 01/27/19 at 16:30 Metronidazole 100 ml @ 100 mls/hr Q8 IVPB Last administered on 02/01/19 05:14; Admin Dose 100 MLS/HR; Start 01/27/19 at 15:00 Atorvastatin Calcium (Lipitor) 40 mg QHS NGT Last administered on 01/31/19 21:16; Admin Dose 40 MG; Start 01/28/19 at 21:00 Docusate Sodium (Colace Liquid Cup) 100 mg BID NGT ; Start 01/27/19 at 22:00; Status Hold Terazosin HCl (Hytrin) 10 mg HS NGT Last administered on 01/31/19 21:16; Admin Dose 10 MG; Start 01/28/19 at 21:00 Levetiracetam 100 ml @ 400 mls/hr Q12 IVPB Last administered on 02/01/19 10:24; Admin Dose 400 MLS/HR; Start 01/28/19 at 09:00 Levothyroxine Sodium (Synthroid) 125 mcg BEFORE BREAKFAST NGT Last administered on 02/01/19 05:26; Admin Dose 125 MCG; Start 01/28/19 at 07:00 Ferrous Sulfate (Feosol Liquid Cup) 300 mg WITH MEALS GTB Last administered on 02/01/19 12:58; Admin Dose 300 MG; Start 01/28/19 at 11:30 Multivitamins (Multivitamin) 30 ml DAILY GTB Last administered on 02/01/19 10:23; Admin Dose 30 ML; Start 01/28/19 at 11:00 Lansoprazole (Prevacid) 30 mg DAILY@06 NGT Last administered on 02/01/19 05:16; Admin Dose 30 MG; Start 01/28/19 at 11:00 Diagnostic Test (Pha) (Accu-Chek) 1 ea Q4 XX Last administered on 02/01/19 13:03; Admin Dose 1 EA; Start 01/28/19 at 13:00 Nystatin/ Triamcinolone Acetonide (Mycolog Oint) 1 applic BID TOP Last administered on 02/01/19 10:28; Admin Dose 1 APPLIC; Start 01/28/19 at 22:30 Insulin Aspart (Novolog Insulin Pen) NOVOLOG *MILD* ALGORI... Q4 SC Last administered on 02/01/19 13:03; Admin Dose 1 UNIT; Start 01/29/19 at 05:00 Albuterol/ Ipratropium (Duoneb) 3 ml Q6HWA RESP THERAPY HHN Last administered on 02/01/19 14:10; Admin Dose 3 ML; Start 01/29/19 at 14:00 Epoetin Dae-epbx (RETACRIT(non-esrd)) 40,000 unit Mo@1700 SC ; Start 02/03/19 at 17:00 Mupirocin (Bactroban) 1 applic BID TOP Last administered on 02/01/19 10:27; Admin Dose 1 APPLIC; Start 01/30/19 at 15:26; Stop 02/09/19 at 15:25 Vancomycin HCl 250 ml @ 125 mls/hr Q48H IVPB Last administered on 01/31/19 11:50; Admin Dose 125 MLS/HR; Start 01/31/19 at 11:00 Tobramycin Sulfate/Sodium Chloride (Nilesh Inhal) 300 mg BID RESP THERAPY NEB Last administered on 02/01/19 08:01; Admin Dose 300 MG; Start 01/30/19 at 20:00 Insulin Glargine (Lantus) 10 units DAILY@2000 SC Last administered on 01/31/19 21:15; Admin Dose 10 UNITS; Start 01/31/19 at 20:00 Insulin Human NPH (Humulin N) 3 unit Q8 SC Last administered on 02/01/19 05:16; Admin Dose 3 UNIT; Start 01/31/19 at 22:00 Potassium Chloride (Potassium Chloride Pwd/Soln) 20 meq BID NGT Last administered on 02/01/19 10:25; Admin Dose 20 MEQ; Start 02/01/19 at 09:00 COOPER CARO February 01, 2019 14:57
--- NOTE | 2019-02-01 16:56 | CONS ---
Assessment/Plan Assessment/Plan Assessment/Plan (Daily) Assessment/Plan Assessment/Plan Hospital Course (Demo Recall) 88 yo male presents from [facility] for SOB and febrile Interval hx: Tolerating tube feeds. No signs of GI bleeding. Levophed gtt. No abnormal EEG activity per RN. WBC 36 1. Severe anemia likely due to chronic disease, last work up while admitted to [facility] about a week ago was neg for GI bleeding, including EGD/colon which was done -s/p EGD and colonoscopy by Dr Verdin 01/09/19 which didn't find an obvious GI etiology to explain anemia. AVM or a small lesion could be missed due to poor prep. Pt likely needs capsule endoscopy -Neg fob, elevate retic, Low iron, tibc, [place] [id number] 2. Cystic lesion along pancreas body - 4.3 cm cystic lesion along the pancreas body, enlarged since 10/10/2012 (previously 2.4 cm). 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 -CEA wnl 3. Severe gastritis 4. Hemorrhoids 5. Hital hernia 6. A fib, -eliquis was stopped 01/06 during previous admission, on ASA 7. COPD 8. HTN 9. Hypothyroidism 10. Bilateral groin cellulitis 11. Rheumatoid arthritis. 12. Diabetes mellitus. 13. Peripheral vascular disease. 14. CHF 15. 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 Sepsis secondary to pneumonia 18. Leukocytosis secondary to Solu-Medrol 19 extensive psoriasis all over the body 20. Encephalopathy secondary to sepsis Plan: LP ordered per neuro Supportive ICU care Continue tube feeds, monitor residuals Pt will need outpatient EUS to evaluate pancreatic mass Recommend capsule endoscopy as outpatient GI prophylaxis: protonix QD Pain management Consultation Date/Type/Reason Admit Date/Time Jan 17, 2019 at 15:58 Initial Consult Date 01/18/19 Requesting Provider: IVAN AKHATR MD Date/Time of Note DATE: 02/01/19 TIME: 16:53 24 HR Interval Summary Subjective hx not possible: pt critical Exam/Review of Systems Exam Vitals Vital Signs Date Temp Pulse Resp B/P (MAP) Pulse Ox O2 O2 Flow FiO2 Time Delivery Rate 02/01/19 80 16:00 02/01/19 2.0 14:33 02/01/19 20 98 Nasal 14:10 Cannula 02/01/19 108/51 06:00 (70) 02/01/19 97.9 04:00 01/31/19 21 20:02 Intake and Output 01/31/19 01/31/19 02/01/19 1515:00 23:00 07:00 IntakeIntake Total 1878.08 ml 1030 ml 580 ml OutputOutput Total 975 ml 1210 ml 685 ml BalanceBalance 903.08 ml -180 ml -105 ml Constitutional: frail Eyes: nl conjunctiva, EOMI, nl lids, nl sclera, PERRL Respiratory: diminished breath sounds Gastrointestinal: soft, nl liver, spleen, non-tender Extremities: other (Discoloration of the skin due to the rash) Results Result Diagram: 02/01/198 02/01/19 0408 Results 24hrs Laboratory Tests Test 01/31/19 21:10 02/01/19 00:23 02/01/19 04:08 02/01/19 04:56 Bedside Glucose 237 H 164 White Blood Count 31.4 H Red Blood Count 3.02 #L Hemoglobin 8.9 #L Hematocrit 26.8 #L Mean Corpuscular 88.7 Volume Mean Corpuscular 29.5 Hemoglobin Mean Corpuscular 33.2 Hemoglobin Concen t Red Cell 18.5 H Distribution Width Platelet Count 151 Mean Platelet 11.3 H Volume Immature 4.700 H Granulocytes % Neutrophils % Segmented 81 H Neutrophils % (Manual) Band Neutrophils 11 H % (Manual) Lymphocytes % Lymphocytes % 4 L (Manual) Reactive 1 H Lymphocytes % (Manual) Monocytes % Monocytes % 1 (Manual) Eosinophils % Basophils % Myelocytes % 2 H (Manual) Nucleated Red 6 H Blood Cells % Immature 1.490 H Granulocytes # Neutrophils # Neutrophils # 26.5 H (Manual) Band Neutrophils 3.4 H # Lymphocytes 1.2 (Manual) Lymphocytes # Reactive 0.3 H Lymphocytes # Monocytes # Monocytes # 0.3 (Manual) Eosinophils # Basophils # Myelocytes # 0.6 H Nucleated Red Blood Cells # Platelet Estimate NORMAL Giant Platelets 1 H Poikilocytosis 1+ Anisocytosis 2+ Macrocytosis 1+ Target Cells 1+ Sodium Level 152 H Potassium Level 3.0 L Chloride Level 113 H Carbon Dioxide 31 Level Anion Gap 8 Blood Urea 56 H Nitrogen Creatinine 1.42 H Est Glomerular Filtrat Rate mL/min Glucose Level 94 # Calcium Level 7.9 L Phosphorus Level 2.3 L Magnesium Level 1.7 Lab Scanned BLOOD TRANSFUSIO Report N Test 02/01/19 05:13 02/01/19 10:38 02/01/19 12:57 02/01/19 14:59 Bedside Glucose 116 152 148 155 Medications Medication Current Medications Lactulose (Enulose) 20 gm DAILY PRN PO CONSTIPATION; Start 01/17/19 at 18:17 Acetaminophen (Tylenol Tab) 650 mg Q4H PRN PO PAIN Last administered on 01/23/19at 22:48; Admin Dose 650 MG; Start 01/17/19 at 18:17 Miscellaneous Information (Pending [facility] Order For Wound Care) This patient ramirez... PRN PRN XX WOUND CARE; Start 01/17/19 at 18:17 Albuterol/ Ipratropium (Duoneb) 3 ml Q2H RESP THERAPY PRN HHN SHORTNESS OF BREATH; Start 01/17/19 at 18:17 Bisacodyl (Dulcolax) 10 mg BID PRN PO CONSTIPATION; Start 01/17/19 at 18:17; Status Hold Folic Acid (Folic Acid) 1 mg DAILY PO Last administered on 02/01/19at 10:26; Admin Dose 1 MG; Start 01/17/19 at 18:17 Latanoprost (Xalatan) 1 drop HS BOTH EYES Last administered on 01/31/19at 21:17; Admin Dose 1 DROP; Start 01/17/19 at 18:17 Nitroglycerin (Nitroglycerin (Sl Tab) 0.4 Mg) 0.4 tab Q5M PRN SL CHEST PAIN; Start 01/17/19 at 18:17 Nystatin (Nystatin Powder) 1 applic BID TOP Last administered on 02/01/19at 10:29; Admin Dose 1 APPLIC; Start 01/17/19 at 18:17 IV Flush (NS 3 ml) 3 ml PER PROTOCOL IV ; Start 01/17/19 at 18:17 Miscellaneous Information 1 ea NOTE XX ; Start 01/17/19 at 18:17 Glucose (Glutose) 15 gm Q15M PRN PO DECREASED GLUCOSE; Start 01/17/19 at 18:17 Glucose (Glutose) 22.5 gm Q15M PRN PO DECREASED GLUCOSE; Start 01/17/19 at 18:17 Dextrose (D50w Syringe) 25 ml Q15M PRN IV DECREASED GLUCOSE; Start 01/17/19 at 18:17 Dextrose (D50w Syringe) 50 ml Q15M PRN IV DECREASED GLUCOSE; Start 01/17/19 at 18:17 Glucagon (Glucagen) 1 mg Q15M PRN IM DECREASED GLUCOSE; Start 01/17/19 at 18:17 Glucose (Glutose) 15 gm Q15M PRN BUCCAL DECREASED GLUCOSE; Start 01/17/19 at 18:17 Zinc Sulfate (Zinc Sulfate) 220 mg DAILY PO Last administered on 02/01/19at 10:24; Admin Dose 220 MG; Start 01/17/19 at 18:17 Ascorbic Acid (Vitamin C) 250 mg DAILY PO Last administered on 02/01/19at 10:25; Admin Dose 250 MG; Start 01/17/19 at 18:17 Multi-Ingredient Ointment (Aquaphor Oint 52.5 Gm) 1 applic BID TOP Last administered on 02/01/19at 10:58; Admin Dose 1 APPLIC; Start 01/17/19 at 18:17 Aspirin (Aspirin) 81 mg DAILY PO Last administered on 02/01/19at 10:24; Admin Dose 81 MG; Start 01/17/19 at 18:17 Bisacodyl (Dulcolax Supp) 10 mg DAILY PRN SD CONSTIPATION; Start 01/17/19 at 18:17 Zinc Acetate/ Diphenhydramine (Benadryl 2% Cr) 1 applic Q6H PRN TOP ITCHING Last administered on 01/26/19at 07:54; Admin Dose 1 APPLIC; Start 01/19/19 at 16:37 IV Flush (NS 10 ml) 10 ml PRN PRN IV IV PROTOCOL; Start 01/20/19 at 14:30 Cyanocobalamin (Vitamin B12 Inj) 1,000 mcg Q7D IM ; Start 02/03/19 at 09:00 Metoprolol Tartrate (Lopressor) 5 mg Q4H PRN IV HR>110 Hold SBP<100; Start 01/26/19 at 14:30 Furosemide (Lasix) 40 mg BID DIURETICS IV Last administered on 02/01/19at 05:14; Admin Dose 40 MG; Start 01/27/19 at 18:00 Vancomycin HCl (Vanco Iv Per Pharmacy) VANCOMYCIN PER PHARMACY PER PROTOCOL XX ; Start 01/27/19 at 12:00 Norepinephrine 250 ml @ 1.875 mls/ hr TITRATE IV Last administered on 01/31/19 05:43; Admin Dose 5.625 MLS/HR; Start 01/27/19 at 12:30 Methylprednisolone Sodium Succinate (Solu-Medrol) 40 mg Q8 IV Last administered on 02/01/19 14:55; Admin Dose 40 MG; Start 01/27/19 at 14:00 Enoxaparin Sodium (Lovenox) 60 mg DAILY SC Last administered on 02/01/19 10:44; Admin Dose 60 MG; Start 01/28/19 at 09:00 Lorazepam (Ativan) 1 mg Q2 PRN IV SEIZURES Last administered on 01/28/19 19:29; Admin Dose 1 MG; Start 01/27/19 at 14:00 Aztreonam 50 ml @ 100 mls/hr Q12 IVPB Last administered on 02/01/19 10:23; Admin Dose 100 MLS/HR; Start 01/27/19 at 16:30 Metronidazole 100 ml @ 100 mls/hr Q8 IVPB Last administered on 02/01/19 14:55; Admin Dose 100 MLS/HR; Start 01/27/19 at 15:00 Atorvastatin Calcium (Lipitor) 40 mg QHS NGT Last administered on 01/31/19 21:16; Admin Dose 40 MG; Start 01/28/19 at 21:00 Docusate Sodium (Colace Liquid Cup) 100 mg BID NGT ; Start 01/27/19 at 22:00; Status Hold Terazosin HCl (Hytrin) 10 mg HS NGT Last administered on 01/31/19 21:16; Admin Dose 10 MG; Start 01/28/19 at 21:00 Levetiracetam 100 ml @ 400 mls/hr Q12 IVPB Last administered on 02/01/19 10:24; Admin Dose 400 MLS/HR; Start 01/28/19 at 09:00 Levothyroxine Sodium (Synthroid) 125 mcg BEFORE BREAKFAST NGT Last administered on 02/01/19 05:26; Admin Dose 125 MCG; Start 01/28/19 at 07:00 Ferrous Sulfate (Feosol Liquid Cup) 300 mg WITH MEALS GTB Last administered on 02/01/19 12:58; Admin Dose 300 MG; Start 01/28/19 at 11:30 Multivitamins (Multivitamin) 30 ml DAILY GTB Last administered on 02/01/19 10:23; Admin Dose 30 ML; Start 01/28/19 at 11:00 Lansoprazole (Prevacid) 30 mg DAILY@06 NGT Last administered on 02/01/19 05:16; Admin Dose 30 MG; Start 01/28/19 at 11:00 Diagnostic Test (Pha) (Accu-Chek) 1 ea Q4 XX Last administered on 02/01/19 13:03; Admin Dose 1 EA; Start 01/28/19 at 13:00 Nystatin/ Triamcinolone Acetonide (Mycolog Oint) 1 applic BID TOP Last administered on 02/01/19 10:28; Admin Dose 1 APPLIC; Start 01/28/19 at 22:30 Insulin Aspart (Novolog Insulin Pen) NOVOLOG *MILD* ALGORI... Q4 SC Last administered on 02/01/19 13:03; Admin Dose 1 UNIT; Start 01/29/19 at 05:00 Albuterol/ Ipratropium (Duoneb) 3 ml Q6HWA RESP THERAPY HHN Last administered on 02/01/19 14:10; Admin Dose 3 ML; Start 01/29/19 at 14:00 Epoetin Dae-epbx (RETACRIT(non-esrd)) 40,000 unit Mo@1700 SC ; Start 02/03/19 at 17:00 Mupirocin (Bactroban) 1 applic BID TOP Last administered on 02/01/19 10:27; Admin Dose 1 APPLIC; Start 01/30/19 at 15:26; Stop 02/09/19 at 15:25 Vancomycin HCl 250 ml @ 125 mls/hr Q48H IVPB Last administered on 01/31/19 11:50; Admin Dose 125 MLS/HR; Start 01/31/19 at 11:00 Tobramycin Sulfate/Sodium Chloride (Nilesh Inhal) 300 mg BID RESP THERAPY NEB Last administered on 02/01/19 08:01; Admin Dose 300 MG; Start 01/30/19 at 20:00 Insulin Glargine (Lantus) 10 units DAILY@2000 SC Last administered on 01/31/19 21:15; Admin Dose 10 UNITS; Start 01/31/19 at 20:00 Insulin Human NPH (Humulin N) 3 unit Q8 SC Last administered on 02/01/19at 15:05; Admin Dose 3 UNIT; Start 01/31/19 at 22:00 Potassium Chloride (Potassium Chloride Pwd/Soln) 20 meq BID NGT Last administered on 02/01/19at 10:25; Admin Dose 20 MEQ; Start 02/01/19 at 09:00 MICHELLE VERDIN MD February 01, 2019 16:56
--- NOTE | 2019-02-01 18:29 | CONS ---
Assessment/Plan Assessment/Plan Assessment/Plan (Daily) This is an 88 yo male with multiple medical problems including DM, CRF, RA, PVD and chronic afib on Eliquis who presented to [facility] 01/05/19 with severe normocytic anemia and Hg ~7. 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 # Anemia-normocytic -Hg 8.9 today -1 unit PRBC ordered boy PMD. - Multifactorial at this time due to iron deficiency, vitamin b12 deficiency and also likely anemia of chronic kidney disease and inflammation. - Elevated Methylmalonic acid level noted - Patient still has low iron level even though ferritin is elevated. Ferritin likely elevated due to acute phase reactant. pt is now s/p IV iron. Pt is s/p EGD and colonoscopy by Dr Frost 01/09/19 which didn't find an obvious GI etiology to explain anemia. AVM or a small lesion could be missed due to poor prep. Pt likely needs capsule endoscopy - continue vitamin b12 weekly as vitamin b12 was low normal and methylmalonic acid was elevated. Continue folate as well. -No evidence of hemolysis at this time. -Transfuse to keep Hgb > 7. 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 -This may be a pseudocyst or a precancerous pancreatic lesion. -It has been growing in size but patient is asymptomatic. EUS with biopsy is recommended and can either be done inpatient or outpatient setting. -The patient at this time is unlikely a candidate for a Whipple surgery however. # Acute Kidney Injury - nephro follows - Cr 1.42 today # Hypokalemia - replace K per PMD/nephro Patient seen in collaboration with Dr Lorenzo. Consultation Date/Type/Reason Admit Date/Time Jan 17, 2019 at 15:58 Initial Consult Date 01/18/19 Type of Consult oncology Reason for Consultation pancreatic cystic mass Requesting Provider: IVAN AKHTAR MD Date/Time of Note DATE: 02/01/19 TIME: 18:28 24 HR Interval Summary Free Text/Dictation confused unclear speech seems comfortable - wbc elevated Subjective hx not possible: pt critical, pt critical status Constitutional: requiring IVF, requiring O2 Exam/Review of Systems Exam Vitals Vital Signs Date Temp Pulse Resp B/P (MAP) Pulse Ox O2 O2 Flow FiO2 Time Delivery Rate 02/01/19 86 16 108/53 100 17:00 (71) 02/01/19 97.7 16:00 02/01/19 2.0 14:33 02/01/19 Nasal 14:10 Cannula 01/31/19 21 20:02 Intake and Output 01/31/19 01/31/19 02/01/19 1515:00 23:00 07:00 IntakeIntake Total 1878.08 ml 1030 ml 580 ml OutputOutput Total 975 ml 1210 ml 685 ml BalanceBalance 903.08 ml -180 ml -105 ml Results Result Diagram: 02/01/19 0408 02/01/19 0408 Results 24hrs Laboratory Tests Test 01/31/19 21:10 02/01/19 00:23 02/01/19 04:08 02/01/19 04:56 Bedside Glucose 237 H 164 White Blood Count 31.4 H Red Blood Count 3.02 #L Hemoglobin 8.9 #L Hematocrit 26.8 #L Mean Corpuscular 88.7 Volume Mean Corpuscular 29.5 Hemoglobin Mean Corpuscular 33.2 Hemoglobin Concen t Red Cell 18.5 H Distribution Width Platelet Count 151 Mean Platelet 11.3 H Volume Immature 4.700 H Granulocytes % Neutrophils % Segmented 81 H Neutrophils % (Manual) Band Neutrophils 11 H % (Manual) Lymphocytes % Lymphocytes % 4 L (Manual) Reactive 1 H Lymphocytes % (Manual) Monocytes % Monocytes % 1 (Manual) Eosinophils % Basophils % Myelocytes % 2 H (Manual) Nucleated Red 6 H Blood Cells % Immature 1.490 H Granulocytes # Neutrophils # Neutrophils # 26.5 H (Manual) Band Neutrophils 3.4 H # Lymphocytes 1.2 (Manual) Lymphocytes # Reactive 0.3 H Lymphocytes # Monocytes # Monocytes # 0.3 (Manual) Eosinophils # Basophils # Myelocytes # 0.6 H Nucleated Red Blood Cells # Platelet Estimate NORMAL Giant Platelets 1 H Poikilocytosis 1+ Anisocytosis 2+ Macrocytosis 1+ Target Cells 1+ Sodium Level 152 H Potassium Level 3.0 L Chloride Level 113 H Carbon Dioxide 31 Level Anion Gap 8 Blood Urea 56 H Nitrogen Creatinine 1.42 H Est Glomerular Filtrat Rate mL/min Glucose Level 94 # Calcium Level 7.9 L Phosphorus Level 2.3 L Magnesium Level 1.7 Lab Scanned BLOOD TRANSFUSIO Report N Test 02/01/19 05:13 02/01/19 10:38 02/01/19 12:57 02/01/19 14:59 Bedside Glucose 116 152 148 155 Test 02/01/19 17:35 Bedside Glucose 166 Medications Medication Current Medications Lactulose (Enulose) 20 gm DAILY PRN PO CONSTIPATION; Start 01/17/19 at 18:17 Acetaminophen (Tylenol Tab) 650 mg Q4H PRN PO PAIN Last administered on 01/23/19at 22:48; Admin Dose 650 MG; Start 01/17/19 at 18:17 Miscellaneous Information (Pending [facility] Order For Wound Care) This patient ramirez... PRN PRN XX WOUND CARE; Start 01/17/19 at 18:17 Albuterol/ Ipratropium (Duoneb) 3 ml Q2H RESP THERAPY PRN HHN SHORTNESS OF BREATH; Start 01/17/19 at 18:17 Bisacodyl (Dulcolax) 10 mg BID PRN PO CONSTIPATION; Start 01/17/19 at 18:17; Status Hold Folic Acid (Folic Acid) 1 mg DAILY PO Last administered on 02/01/19at 10:26; Admin Dose 1 MG; Start 01/17/19 at 18:17 Latanoprost (Xalatan) 1 drop HS BOTH EYES Last administered on 01/31/19at 21:17; Admin Dose 1 DROP; Start 01/17/19 at 18:17 Nitroglycerin (Nitroglycerin (Sl Tab) 0.4 Mg) 0.4 tab Q5M PRN SL CHEST PAIN; Start 01/17/19 at 18:17 Nystatin (Nystatin Powder) 1 applic BID TOP Last administered on 02/01/19at 10:29; Admin Dose 1 APPLIC; Start 01/17/19 at 18:17 IV Flush (NS 3 ml) 3 ml PER PROTOCOL IV ; Start 01/17/19 at 18:17 Miscellaneous Information 1 ea NOTE XX ; Start 01/17/19 at 18:17 Glucose (Glutose) 15 gm Q15M PRN PO DECREASED GLUCOSE; Start 01/17/19 at 18:17 Glucose (Glutose) 22.5 gm Q15M PRN PO DECREASED GLUCOSE; Start 01/17/19 at 18:17 Dextrose (D50w Syringe) 25 ml Q15M PRN IV DECREASED GLUCOSE; Start 01/17/19 at 18:17 Dextrose (D50w Syringe) 50 ml Q15M PRN IV DECREASED GLUCOSE; Start 01/17/19 at 18:17 Glucagon (Glucagen) 1 mg Q15M PRN IM DECREASED GLUCOSE; Start 01/17/19 at 18:17 Glucose (Glutose) 15 gm Q15M PRN BUCCAL DECREASED GLUCOSE; Start 01/17/19 at 18:17 Zinc Sulfate (Zinc Sulfate) 220 mg DAILY PO Last administered on 02/01/19at 10:24; Admin Dose 220 MG; Start 01/17/19 at 18:17 Ascorbic Acid (Vitamin C) 250 mg DAILY PO Last administered on 02/01/19at 10:25; Admin Dose 250 MG; Start 01/17/19 at 18:17 Multi-Ingredient Ointment (Aquaphor Oint 52.5 Gm) 1 applic BID TOP Last administered on 02/01/19at 10:58; Admin Dose 1 APPLIC; Start 01/17/19 at 18:17 Aspirin (Aspirin) 81 mg DAILY PO Last administered on 02/01/19at 10:24; Admin Dose 81 MG; Start 01/17/19 at 18:17 Bisacodyl (Dulcolax Supp) 10 mg DAILY PRN [place] CONSTIPATION; Start 01/17/19 at 18:17 Zinc Acetate/ Diphenhydramine (Benadryl 2% Cr) 1 applic Q6H PRN TOP ITCHING Last administered on 01/26/19at 07:54; Admin Dose 1 APPLIC; Start 01/19/19 at 16:37 IV Flush (NS 10 ml) 10 ml PRN PRN IV IV PROTOCOL; Start 01/20/19 at 14:30 Cyanocobalamin (Vitamin B12 Inj) 1,000 mcg Q7D IM ; Start 02/03/19 at 09:00 Metoprolol Tartrate (Lopressor) 5 mg Q4H PRN IV HR>110 Hold SBP<100; Start 01/26/19 at 14:30 Furosemide (Lasix) 40 mg BID DIURETICS IV Last administered on 02/01/19at 17:58; Admin Dose 40 MG; Start 01/27/19 at 18:00 Vancomycin HCl (Vanco Iv Per Pharmacy) VANCOMYCIN PER PHARMACY PER PROTOCOL XX ; Start 01/27/19 at 12:00 Norepinephrine 250 ml @ 1.875 mls/ hr TITRATE IV Last administered on 01/31/19 05:43; Admin Dose 5.625 MLS/HR; Start 01/27/19 at 12:30 Methylprednisolone Sodium Succinate (Solu-Medrol) 40 mg Q8 IV Last administered on 02/01/19 14:55; Admin Dose 40 MG; Start 01/27/19 at 14:00 Enoxaparin Sodium (Lovenox) 60 mg DAILY SC Last administered on 02/01/19 10:44; Admin Dose 60 MG; Start 01/28/19 at 09:00 Lorazepam (Ativan) 1 mg Q2 PRN IV SEIZURES Last administered on 01/28/19 19:29; Admin Dose 1 MG; Start 01/27/19 at 14:00 Aztreonam 50 ml @ 100 mls/hr Q12 IVPB Last administered on 02/01/19 10:23; Admin Dose 100 MLS/HR; Start 01/27/19 at 16:30 Metronidazole 100 ml @ 100 mls/hr Q8 IVPB Last administered on 02/01/19 14:55; Admin Dose 100 MLS/HR; Start 01/27/19 at 15:00 Atorvastatin Calcium (Lipitor) 40 mg QHS NGT Last administered on 01/31/19 21:16; Admin Dose 40 MG; Start 01/28/19 at 21:00 Docusate Sodium (Colace Liquid Cup) 100 mg BID NGT ; Start 01/27/19 at 22:00; Status Hold Terazosin HCl (Hytrin) 10 mg HS NGT Last administered on 01/31/19 21:16; Admin Dose 10 MG; Start 01/28/19 at 21:00 Levetiracetam 100 ml @ 400 mls/hr Q12 IVPB Last administered on 02/01/19 10:24; Admin Dose 400 MLS/HR; Start 01/28/19 at 09:00 Levothyroxine Sodium (Synthroid) 125 mcg BEFORE BREAKFAST NGT Last administered on 02/01/19 05:26; Admin Dose 125 MCG; Start 01/28/19 at 07:00 Ferrous Sulfate (Feosol Liquid Cup) 300 mg WITH MEALS GTB Last administered on 5/11/19at 17:58; Admin Dose 300 MG; Start 01/28/19 at 11:30 Multivitamins (Multivitamin) 30 ml DAILY GTB Last administered on 02/01/19 10:23; Admin Dose 30 ML; Start 01/28/19 at 11:00 Lansoprazole (Prevacid) 30 mg DAILY@06 NGT Last administered on 02/01/19 05:16; Admin Dose 30 MG; Start 01/28/19 at 11:00 Diagnostic Test (Pha) (Accu-Chek) 1 ea Q4 XX Last administered on 02/01/19 17:59; Admin Dose 1 EA; Start 01/28/19 at 13:00 Nystatin/ Triamcinolone Acetonide (Mycolog Oint) 1 applic BID TOP Last administered on 02/01/19 10:28; Admin Dose 1 APPLIC; Start 01/28/19 at 22:30 Insulin Aspart (Novolog Insulin Pen) NOVOLOG *MILD* ALGORI... Q4 SC Last administered on 02/01/19 17:52; Admin Dose 1 UNIT; Start 01/29/19 at 05:00 Albuterol/ Ipratropium (Duoneb) 3 ml Q6HWA RESP THERAPY HHN Last administered on 02/01/19 14:10; Admin Dose 3 ML; Start 01/29/19 at 14:00 Epoetin Dae-epbx (RETACRIT(non-esrd)) 40,000 unit Mo@1700 SC ; Start 02/03/19 at 17:00 Mupirocin (Bactroban) 1 applic BID TOP Last administered on 02/01/19 10:27; Admin Dose 1 APPLIC; Start 01/30/19 at 15:26; Stop 02/09/19 at 15:25 Vancomycin HCl 250 ml @ 125 mls/hr Q48H IVPB Last administered on 01/31/19 11:50; Admin Dose 125 MLS/HR; Start 01/31/19 at 11:00 Tobramycin Sulfate/Sodium Chloride (Nilesh Inhal) 300 mg BID RESP THERAPY NEB Last administered on 02/01/19 08:01; Admin Dose 300 MG; Start 01/30/19 at 20:00 Insulin Glargine (Lantus) 10 units DAILY@2000 SC Last administered on 5/10/19at 21:15; Admin Dose 10 UNITS; Start 01/31/19 at 20:00 Insulin Human NPH (Humulin N) 3 unit Q8 SC Last administered on 02/01/19at 15:05; Admin Dose 3 UNIT; Start 01/31/19 at 22:00 Potassium Chloride (Potassium Chloride Pwd/Soln) 20 meq BID NGT Last administered on 02/01/19at 10:25; Admin Dose 20 MEQ; Start 02/01/19 at 09:00 JESI GATES February 01, 2019 18:29
[2019-02-01] MEDS: TERAZOSIN 5 MG CAP NGT SCH (20:08)
[2019-02-01] MEDS: ATORVASTATIN 40 MG TAB NGT SCH (20:08)
[2019-02-01] MEDS: LATANOPROST 0.005% 2.5 ML OPH BOTH EYES SCH (20:09)
[2019-02-01] MEDS: INSULIN GLARGINE [LANTus] (100 UNITS/ML) SYG SC SCH (20:15)
[2019-02-02] VITALS (23 sets, daily range): BP systolic 96–172; BP diastolic 50–152; PULSE 78–100; RESP 13–24
[2019-02-02] MEDS: INSULIN ASPART [NOVOLOG] 3 ML PEN SC SCH ×6 (01:00→21:00)
[2019-02-02] MEDS: ACCU-CHEK XX SCH ×6 (01:27→21:00)
--- NOTE | 2019-02-02 04:38 | CONS ---
Assessment/Plan Assessment/Plan Assessment/Plan (Daily) This is an 88 yo male with multiple medical problems including DM, CRF, RA, PVD and chronic afib on Eliquis who presented to [facility] 01/05/19 with severe normocytic anemia and Hg ~7. 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 # Anemia-normocytic -Hg 8.9 today -1 unit PRBC ordered boy PMD. -Multifactorial at this time due to iron deficiency, vitamin b12 deficiency and also likely anemia of chronic kidney disease and inflammation. Elevated Methylmalonic acid level noted -Patient still has low iron level even though ferritin is elevated. Ferritin likely elevated due to acute phase reactant. pt is now s/p IV iron. Pt is s/p EGD and colonoscopy by Dr Frost 01/09/19 which didn't find an obvious GI etiology to explain anemia. AVM or a small lesion could be missed due to poor prep. Pt likely needs capsule endoscopy -continue vitamin b12 weekly as vitamin b12 was low normal and methylmalonic acid was elevated. Continue folate as well. -No evidence of hemolysis at this time. -Transfuse to keep Hgb > 7. 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 -This may be a pseudocyst or a precancerous pancreatic lesion. -It has been growing in size but patient is asymptomatic. EUS with biopsy is recommended and can either be done inpatient or outpatient setting. -The patient at this time is unlikely a candidate for a Whipple surgery however. # Acute Kidney Injury - nephro follows - Cr 1.42 today # Hypokalemia - replace K per PMD/nephro Patient seen in collaboration with Dr Lorenzo. Consultation Date/Type/Reason Admit Date/Time Jan 17, 2019 at 15:58 Initial Consult Date 01/18/19 Type of Consult oncology Requesting Provider: IVAN AKHTAR MD Date/Time of Note DATE: 02/02/19 TIME: 04:36 Exam/Review of Systems Exam Vitals Vital Signs Date Temp Pulse Resp B/P (MAP) Pulse Ox O2 O2 Flow FiO2 Time Delivery Rate 02/02/19 89 04:00 02/02/19 2.0 27 01:47 02/02/19 20 96/60 (72) 97 Nasal 01:00 Cannula 02/02/19 97.7 00:00 Intake and Output 02/01/19 02/01/19 02/02/19 1515:00 23:00 07:00 IntakeIntake Total 580 ml 870 ml 240 ml OutputOutput Total 1120 ml 1435 ml 430 ml BalanceBalance -540 ml -565 ml -190 ml Results Result Diagram: 02/01/19 0408 02/01/19 0408 Results 24hrs Laboratory Tests Test 02/01/19 04:56 02/01/19 05:13 02/01/19 10:38 02/01/19 12:57 Lab Scanned BLOOD TRANSFUSIO Report N Bedside Glucose 116 152 148 Test 02/01/19 14:59 02/01/19 17:35 02/01/19 20:11 02/01/19 22:09 Bedside Glucose 155 166 181 179 Test 02/02/19 01:26 Bedside Glucose 128 Medications Medication Current Medications Lactulose (Enulose) 20 gm DAILY PRN PO CONSTIPATION; Start 01/17/19 at 18:17 Acetaminophen (Tylenol Tab) 650 mg Q4H PRN PO PAIN Last administered on 01/23/19at 22:48; Admin Dose 650 MG; Start 01/17/19 at 18:17 Miscellaneous Information (Pending [facility] Order For Wound Care) This patient ramirez... PRN PRN XX WOUND CARE; Start 01/17/19 at 18:17 Albuterol/ Ipratropium (Duoneb) 3 ml Q2H RESP THERAPY PRN HHN SHORTNESS OF BREATH; Start 01/17/19 at 18:17 Bisacodyl (Dulcolax) 10 mg BID PRN PO CONSTIPATION; Start 01/17/19 at 18:17; Status Hold Folic Acid (Folic Acid) 1 mg DAILY PO Last administered on 02/01/19at 10:26; Admin Dose 1 MG; Start 01/17/19 at 18:17 Latanoprost (Xalatan) 1 drop HS BOTH EYES Last administered on 02/01/19at 20:09; Admin Dose 1 DROP; Start 01/17/19 at 18:17 Nitroglycerin (Nitroglycerin (Sl Tab) 0.4 Mg) 0.4 tab Q5M PRN SL CHEST PAIN; Start 01/17/19 at 18:17 Nystatin (Nystatin Powder) 1 applic BID TOP Last administered on 02/01/19at 20:10; Admin Dose 1 APPLIC; Start 01/17/19 at 18:17 IV Flush (NS 3 ml) 3 ml PER PROTOCOL IV ; Start 01/17/19 at 18:17 Miscellaneous Information 1 ea NOTE XX ; Start 01/17/19 at 18:17 Glucose (Glutose) 15 gm Q15M PRN PO DECREASED GLUCOSE; Start 01/17/19 at 18:17 Glucose (Glutose) 22.5 gm Q15M PRN PO DECREASED GLUCOSE; Start 01/17/19 at 18:17 Dextrose (D50w Syringe) 25 ml Q15M PRN IV DECREASED GLUCOSE; Start 01/17/19 at 18:17 Dextrose (D50w Syringe) 50 ml Q15M PRN IV DECREASED GLUCOSE; Start 01/17/19 at 18:17 Glucagon (Glucagen) 1 mg Q15M PRN IM DECREASED GLUCOSE; Start 01/17/19 at 18:17 Glucose (Glutose) 15 gm Q15M PRN BUCCAL DECREASED GLUCOSE; Start 01/17/19 at 18:17 Zinc Sulfate (Zinc Sulfate) 220 mg DAILY PO Last administered on 02/01/19at 10:24; Admin Dose 220 MG; Start 01/17/19 at 18:17 Ascorbic Acid (Vitamin C) 250 mg DAILY PO Last administered on 02/01/19at 10:25; Admin Dose 250 MG; Start 01/17/19 at 18:17 Multi-Ingredient Ointment (Aquaphor Oint 52.5 Gm) 1 applic BID TOP Last administered on 02/01/19at 20:09; Admin Dose 1 APPLIC; Start 01/17/19 at 18:17 Aspirin (Aspirin) 81 mg DAILY PO Last administered on 02/01/19at 10:24; Admin Dose 81 MG; Start 01/17/19 at 18:17 Bisacodyl (Dulcolax Supp) 10 mg DAILY PRN SC CONSTIPATION; Start 01/17/19 at 18:17 Zinc Acetate/ Diphenhydramine (Benadryl 2% Cr) 1 applic Q6H PRN TOP ITCHING Last administered on 01/26/19at 07:54; Admin Dose 1 APPLIC; Start 01/19/19 at 16:37 IV Flush (NS 10 ml) 10 ml PRN PRN IV IV PROTOCOL; Start 01/20/19 at 14:30 Cyanocobalamin (Vitamin B12 Inj) 1,000 mcg Q7D IM ; Start 02/03/19 at 09:00 Metoprolol Tartrate (Lopressor) 5 mg Q4H PRN IV HR>110 Hold SBP<100; Start 01/26/19 at 14:30 Furosemide (Lasix) 40 mg BID DIURETICS IV Last administered on 02/01/19at 17:58; Admin Dose 40 MG; Start 01/27/19 at 18:00 Vancomycin HCl (Vanco Iv Per Pharmacy) VANCOMYCIN PER PHARMACY PER PROTOCOL XX ; Start 01/27/19 at 12:00 Norepinephrine 250 ml @ 1.875 mls/ hr TITRATE IV Last administered on 01/31/19 05:43; Admin Dose 5.625 MLS/HR; Start 01/27/19 at 12:30 Methylprednisolone Sodium Succinate (Solu-Medrol) 40 mg Q8 IV Last administered on 02/01/19 22:10; Admin Dose 40 MG; Start 01/27/19 at 14:00 Enoxaparin Sodium (Lovenox) 60 mg DAILY SC Last administered on 02/01/19 10:44; Admin Dose 60 MG; Start 01/28/19 at 09:00 Lorazepam (Ativan) 1 mg Q2 PRN IV SEIZURES Last administered on 01/28/19at 19:29; Admin Dose 1 MG; Start 01/27/19 at 14:00 Aztreonam 50 ml @ 100 mls/hr Q12 IVPB Last administered on 02/01/19 20:08; Admin Dose 100 MLS/HR; Start 01/27/19 at 16:30 Metronidazole 100 ml @ 100 mls/hr Q8 IVPB Last administered on 02/01/19 22:10; Admin Dose 100 MLS/HR; Start 01/27/19 at 15:00 Atorvastatin Calcium (Lipitor) 40 mg QHS NGT Last administered on 02/01/19at 20:08; Admin Dose 40 MG; Start 01/28/19 at 21:00 Docusate Sodium (Colace Liquid Cup) 100 mg BID NGT ; Start 01/27/19 at 22:00; Status Hold Terazosin HCl (Hytrin) 10 mg HS NGT Last administered on 02/01/19 20:08; Admin Dose 10 MG; Start 01/28/19 at 21:00 Levetiracetam 100 ml @ 400 mls/hr Q12 IVPB Last administered on 02/01/19 20:08; Admin Dose 400 MLS/HR; Start 01/28/19 at 09:00 Levothyroxine Sodium (Synthroid) 125 mcg BEFORE BREAKFAST NGT Last administered on 02/01/19 05:26; Admin Dose 125 MCG; Start 01/28/19 at 07:00 Ferrous Sulfate (Feosol Liquid Cup) 300 mg WITH MEALS GTB Last administered on 02/01/19 17:58; Admin Dose 300 MG; Start 01/28/19 at 11:30 Multivitamins (Multivitamin) 30 ml DAILY GTB Last administered on 02/01/19 10:23; Admin Dose 30 ML; Start 01/28/19 at 11:00 Lansoprazole (Prevacid) 30 mg DAILY@06 NGT Last administered on 02/01/19 05:16; Admin Dose 30 MG; Start 01/28/19 at 11:00 Diagnostic Test (Pha) (Accu-Chek) 1 ea Q4 XX Last administered on 02/02/19 01:27; Admin Dose 1 EA; Start 01/28/19 at 13:00 Nystatin/ Triamcinolone Acetonide (Mycolog Oint) 1 applic BID TOP Last administered on 02/01/19 20:10; Admin Dose 1 APPLIC; Start 01/28/19 at 22:30 Insulin Aspart (Novolog Insulin Pen) NOVOLOG *MILD* ALGORI... Q4 SC Last administered on 02/01/19 20:14; Admin Dose 2 UNIT; Start 01/29/19 at 05:00 Albuterol/ Ipratropium (Duoneb) 3 ml Q6HWA RESP THERAPY HHN Last administered on 02/01/19 19:59; Admin Dose 3 ML; Start 01/29/19 at 14:00 Epoetin Dae-epbx (RETACRIT(non-esrd)) 40,000 unit Mo@1700 SC ; Start 02/03/19 at 17:00 Mupirocin (Bactroban) 1 applic BID TOP Last administered on 02/01/19 20:09; Admin Dose 1 APPLIC; Start 01/30/19 at 15:26; Stop 02/09/19 at 15:25 Vancomycin HCl 250 ml @ 125 mls/hr Q48H IVPB Last administered on 01/31/19 11:50; Admin Dose 125 MLS/HR; Start 01/31/19 at 11:00 Tobramycin Sulfate/Sodium Chloride (Nilesh Inhal) 300 mg BID RESP THERAPY NEB Last administered on 02/01/19at 20:31; Admin Dose 300 MG; Start 01/30/19 at 20:00 Insulin Glargine (Lantus) 10 units DAILY@2000 SC Last administered on 02/01/19at 20:15; Admin Dose 10 UNITS; Start 01/31/19 at 20:00 Insulin Human NPH (Humulin N) 3 unit Q8 SC Last administered on 02/01/19 22:17; Admin Dose 3 UNIT; Start 01/31/19 at 22:00 Potassium Chloride (Potassium Chloride Pwd/Soln) 20 meq BID NGT Last administered on 02/01/19at 20:07; Admin Dose 20 MEQ; Start 02/01/19 at 09:00 JESI GATES February 02, 2019 04:38
[2019-02-02] MEDS: METHYLPREDNISOLONE 40 MG INJ IV SCH (05:43)
[2019-02-02] MEDS: LANSOPRAZOLE 30 MG CAP NGT SCH (05:43)
[2019-02-02] MEDS: FUROSEMIDE 40 MG INJ IV SCH ×2 (05:43→17:13)
[2019-02-02] MEDS: metroNIDAZOLE 500 MG/NS (PMX) 100 ML IVPB SCH ×3 (05:43→21:29)
[2019-02-02] MEDS: NPH, HUMAN INSULIN ISOPHANE 3ML VIAL SC SCH (05:55)
[2019-02-02] MEDS: ALBUTEROL/IPRATROPIUM (NEB) 3 ML AMP HHN SCH ×3 (07:49→21:18)
[2019-02-02] MEDS: TOBRAMYCIN/0.25NS 300 MG/5 ML INHAL NEB SCH ×2 (07:49→20:00)
[2019-02-02] MEDS: MULTIVITAMINS 30 ML CUP GTB SCH (08:42)
[2019-02-02] MEDS: ZINC SULFATE 220 MG CAP PO SCH (08:43)
[2019-02-02] MEDS: FOLIC ACID 1 MG TAB PO SCH (08:43)
[2019-02-02] MEDS: LEVOTHYROXINE 125 MCG TAB NGT SCH (08:43)
[2019-02-02] MEDS: ASPIRIN 81 MG TAB PO SCH (08:43)
[2019-02-02] MEDS: POTASSIUM CHLORIDE 20 MEQ POWDER FOR ORAL SOLN NGT SCH ×3 (08:43→21:27)
[2019-02-02] MEDS: FERROUS SULFATE 60 MG/ML 5ML CUP GTB SCH ×3 (08:43→17:13)
[2019-02-02] MEDS: ASCORBIC ACID 250 MG TAB PO SCH (08:44)
[2019-02-02] MEDS: BALSAM PERU/CASTOR OIL 60 GM TUBE TOP SCH ×2 (08:45→21:27)
[2019-02-02] MEDS: NYSTATIN 30 GM POWDER BTL TOP SCH ×2 (08:45→21:28)
[2019-02-02] MEDS: MUPIROCIN 2% 22 GM OINT TOP SCH ×2 (08:45→21:28)
[2019-02-02] MEDS: AQUAPHOR 52.5 GM OINT TOP SCH ×2 (08:45→21:28)
[2019-02-02] MEDS: NYSTATIN/TRIAMCINOLONE 15 GM OINT TOP SCH ×2 (08:46→21:28)
[2019-02-02] MEDS: ENOXAPARIN 60 MG/0.6 ML SYG SC SCH (08:54)
[2019-02-02] MEDS: AZTREONAM 1 GM/NS (PMX) 50 ML IVPB SCH ×2 (09:06→21:27)
[2019-02-02] MEDS: LEVETIRACETAM 500 MG (PMX) 100 ML IVPB SCH ×2 (09:06→21:29)
[2019-02-02] MEDS: LORAZEPAM 2 MG INJ IV PRN (09:18)
--- NOTE | 2019-02-02 10:51 | PN ---
Date/Time of Note Date/Time of Note DATE: 02/02/19 TIME: 10:49 Assessment/Plan VTE Prophylaxis Risk score (from [facility])>0 risk: 13 SCD applied (from [facility]): No SCD contraindicated: bilateral LE trauma Pharmacological prophylaxis: LMWH Lines/Catheters IV Catheter Type (from [facility]): Central Line Central line still needed: Yes Urinary Cath still in place: Yes Reason Cath still needed: urinary retention Assessment/Plan Hospital Course 1. Sepsis, WBC rising , lactic acidosis. LActic acid recently 2.5 2. Severe anemia 3. Chronic renal failure likely secondary to sepsis 4. Hypertension. 5. Hyperlipidemia. 6. Hypothyroidism. 7. Normocytic normochromic chronic anemia with recent hemoglobin drop. 8. Bilateral groin cellulitis more likely associated with mateus, patches in groin and axilla bilaterally. skin peeling 9. History of rheumatoid arthritis with joint deformities. 10. Diabetes type 2. 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 Peripheral vascular disease. 13. Chronic a.fib 14. right arm edema, better 15. Neoplasm per CT abdomen. 4.3 cm cystic lesion along the pancreas body, enlarged since 10/10/2012 (previously 2.4 cm). 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 16. Possible allergic skin reaction, biopsy is obtained 17. altered mental status delirium vs stroke, resolved 18. Hypernatremia 156 from 152 19. Eye muscle paralysis. Assessment/Plan -LP per neuro ordered -wean off solumedrol - tele - cw vanco, tobramycin sputum + E coli? -drug reaction -ophthalmology referral, called [id number], left a message - replete k as needed - fu Neuro recs and neuro checks ? LP -stop Asprin - NG tube with feeding with water flashes -cw nebs/ solumedrol 40 iv q 8 - GI and DVT prophylaxis -oncology consul dr Lorenzo aware pancreatic cyst: he said Ca 19-9 is negative indicating unlikely malignant. This may be a pseudocyst or a precancerous pancreatic lesion. It has been growing in size but patient is asymptomatic. EUS with biopsy is recommended and can either be done inpatient or outpatient setting. The patient at this time is unlikely a candidate for a Whipple surgery however. -skin care - s/p skin biopsy results: biopsy of skin: Right proximal forearm skin biopsy: -- Solar elastosis with dermal edema and a few interstitial neutrophils with lymphocytes, vascular and fibroblast proliferation. -- No eosinophils are noted. -- No evidence of vasculitis and no extravasation of erythrocyte is seen. -- No evidence of malignancy. Result Diagram: Result Diagram: 02/02/1952302/02/19 0524 Results 24hrs Laboratory Tests Test 02/01/19 12:57 02/01/19 14:59 02/01/19 17:35 02/01/19 20:11 Bedside Glucose 148 155 166 181 Test 02/01/19 22:09 02/02/19 01:26 02/02/19 05:00 02/02/19 05:19 Bedside Glucose 179 128 112 Blood Gas Blood arterial Specimen Source Arterial Blood 02/02/2019 4:46:5 Date Drawn 1 AM Arterial Blood pH 7.504 H (Temp corrected) Arterial Blood 39.3 pCO2 (Temp correct) Arterial Blood 80.3 pO2 (Temp corrected) Arterial Blood 30.2 H HCO3 Arterial Blood 6.6 H Base Excess Arterial Blood 95.8 Oxygen Saturation Manuel Test ACCEPTAB Arterial Blood Right Radial Gas Puncture Site Arterial 0.3 Blood Carboxyhemo globin Arterial Blood 0.4 Methemoglobin Blood Gas A-a O2 65.7 H Differential Oxyhemoglobin 95.1 Percent Blood Gas 37.0 Temperature Blood Gas NASAL CANNULA Modality FiO2 27.0 Blood Gas LW Notified Whom Blood Gas 02/02/2019 4:57:3 Notified Time 0 AM Test 02/02/19 05:24 02/02/19 08:08 White Blood Count 32.6 H Red Blood Count 2.91 L Hemoglobin 8.4 L Hematocrit 25.7 L Mean Corpuscular 88.3 Volume Mean Corpuscular 28.9 L Hemoglobin Mean Corpuscular 32.7 Hemoglobin Concen t Red Cell 18.6 H Distribution Width Platelet Count 137 L Mean Platelet 11.9 H Volume Immature 3.500 H Granulocytes % Neutrophils % Segmented 88 H Neutrophils % (Manual) Band Neutrophils 4 % (Manual) Lymphocytes % Lymphocytes % 4 L (Manual) Monocytes % Monocytes % 3 (Manual) Eosinophils % Basophils % Myelocytes % 1 H (Manual) Nucleated Red 3 H Blood Cells % Immature 1.140 H Granulocytes # Neutrophils # Neutrophils # 29.1 H (Manual) Band Neutrophils 1.3 H # Lymphocytes 1.3 (Manual) Lymphocytes # Monocytes # Monocytes # 0.9 (Manual) Eosinophils # Basophils # Myelocytes # 0.3 H Nucleated Red Blood Cells # Platelet Estimate DECREASED Giant Platelets 4 H Poikilocytosis 3+ Anisocytosis 3+ Macrocytosis 3+ Target Cells 1+ Sodium Level 156 H Potassium Level 3.0 L Chloride Level 117 H Carbon Dioxide 36 H Level Anion Gap 3 L Blood Urea 64 H Nitrogen Creatinine 1.43 H Est Glomerular Filtrat Rate mL/min Glucose Level 98 Lactic Acid Level 2.5 *H Calcium Level 7.5 L Bedside Glucose 88 Subjective 24 Hr Interval Summary Free Text/Dictation incoherent Exam/Review of Systems Exam Vitals Vital Signs Date Temp Pulse Resp B/P (MAP) Pulse Ox O2 O2 Flow FiO2 Time Delivery Rate 02/02/19 97.5 91 18 101/62 98 10:05 (75) 02/02/19 Nasal 2.0 07:52 Cannula 02/02/19 27 01:47 Intake and Output 02/01/19 02/01/19 02/02/19 1515:00 23:00 07:00 IntakeIntake Total 580 ml 870 ml 480 ml OutputOutput Total 1120 ml 1435 ml 1060 ml BalanceBalance -540 ml -565 ml -580 ml Exam NG tube Constitutional: frail Respiratory: diminished breath sounds Cardiovascular: regular rate and rhythm, other (afib) Gastrointestinal: soft Neurological: confused Skin: other (peeling) Results Results 24hrs Laboratory Tests Test 02/01/19 12:57 02/01/19 14:59 02/01/19 17:35 02/01/19 20:11 Bedside Glucose 148 155 166 181 Test 02/01/19 22:09 02/02/19 01:26 02/02/19 05:00 02/02/19 05:19 Bedside Glucose 179 128 112 Blood Gas Blood arterial Specimen Source Arterial Blood 02/02/2019 4:46:5 Date Drawn 1 AM Arterial Blood pH 7.504 H (Temp corrected) Arterial Blood 39.3 pCO2 (Temp correct) Arterial Blood 80.3 pO2 (Temp corrected) Arterial Blood 30.2 H HCO3 Arterial Blood 6.6 H Base Excess Arterial Blood 95.8 Oxygen Saturation Manuel Test ACCEPTAB Arterial Blood Right Radial Gas Puncture Site Arterial 0.3 Blood Carboxyhemo globin Arterial Blood 0.4 Methemoglobin Blood Gas A-a O2 65.7 H Differential Oxyhemoglobin 95.1 Percent Blood Gas 37.0 Temperature Blood Gas NASAL CANNULA Modality FiO2 27.0 Blood Gas LW Notified Whom Blood Gas 02/02/2019 4:57:3 Notified Time 0 AM Test 02/02/19 05:24 02/02/19 08:08 White Blood Count 32.6 H Red Blood Count 2.91 L Hemoglobin 8.4 L Hematocrit 25.7 L Mean Corpuscular 88.3 Volume Mean Corpuscular 28.9 L Hemoglobin Mean Corpuscular 32.7 Hemoglobin Concen t Red Cell 18.6 H Distribution Width Platelet Count 137 L Mean Platelet 11.9 H Volume Immature 3.500 H Granulocytes % Neutrophils % Segmented 88 H Neutrophils % (Manual) Band Neutrophils 4 % (Manual) Lymphocytes % Lymphocytes % 4 L (Manual) Monocytes % Monocytes % 3 (Manual) Eosinophils % Basophils % Myelocytes % 1 H (Manual) Nucleated Red 3 H Blood Cells % Immature 1.140 H Granulocytes # Neutrophils # Neutrophils # 29.1 H (Manual) Band Neutrophils 1.3 H # Lymphocytes 1.3 (Manual) Lymphocytes # Monocytes # Monocytes # 0.9 (Manual) Eosinophils # Basophils # Myelocytes # 0.3 H Nucleated Red Blood Cells # Platelet Estimate DECREASED Giant Platelets 4 H Poikilocytosis 3+ Anisocytosis 3+ Macrocytosis 3+ Target Cells 1+ Sodium Level 156 H Potassium Level 3.0 L Chloride Level 117 H Carbon Dioxide 36 H Level Anion Gap 3 L Blood Urea 64 H Nitrogen Creatinine 1.43 H Est Glomerular Filtrat Rate mL/min Glucose Level 98 Lactic Acid Level 2.5 *H Calcium Level 7.5 L Bedside Glucose 88 Medications Medication Current Medications Lactulose (Enulose) 20 gm DAILY PRN PO CONSTIPATION; Start 01/17/19 at 18:17 Acetaminophen (Tylenol Tab) 650 mg Q4H PRN PO PAIN Last administered on 01/23/19at 22:48; Admin Dose 650 MG; Start 01/17/19 at 18:17 Miscellaneous Information (Pending [facility] Order For Wound Care) This patient ramirez... PRN PRN XX WOUND CARE; Start 01/17/19 at 18:17 Albuterol/ Ipratropium (Duoneb) 3 ml Q2H RESP THERAPY PRN HHN SHORTNESS OF BREATH; Start 01/17/19 at 18:17 Bisacodyl (Dulcolax) 10 mg BID PRN PO CONSTIPATION; Start 01/17/19 at 18:17; Status Hold Folic Acid (Folic Acid) 1 mg DAILY PO Last administered on 02/02/19 08:43; Admin Dose 1 MG; Start 01/17/19 at 18:17 Latanoprost (Xalatan) 1 drop HS BOTH EYES Last administered on 02/01/19 20:09; Admin Dose 1 DROP; Start 01/17/19 at 18:17 Nitroglycerin (Nitroglycerin (Sl Tab) 0.4 Mg) 0.4 tab Q5M PRN SL CHEST PAIN; Start 01/17/19 at 18:17 Nystatin (Nystatin Powder) 1 applic BID TOP Last administered on 02/02/19 08:45; Admin Dose 1 APPLIC; Start 01/17/19 at 18:17 IV Flush (NS 3 ml) 3 ml PER PROTOCOL IV ; Start 01/17/19 at 18:17 Miscellaneous Information 1 ea NOTE XX ; Start 01/17/19 at 18:17 Glucose (Glutose) 15 gm Q15M PRN PO DECREASED GLUCOSE; Start 01/17/19 at 18:17 Glucose (Glutose) 22.5 gm Q15M PRN PO DECREASED GLUCOSE; Start 01/17/19 at 18:17 Dextrose (D50w Syringe) 25 ml Q15M PRN IV DECREASED GLUCOSE; Start 01/17/19 at 18:17 Dextrose (D50w Syringe) 50 ml Q15M PRN IV DECREASED GLUCOSE; Start 01/17/19 at 18:17 Glucagon (Glucagen) 1 mg Q15M PRN IM DECREASED GLUCOSE; Start 01/17/19 at 18:17 Glucose (Glutose) 15 gm Q15M PRN BUCCAL DECREASED GLUCOSE; Start 01/17/19 at 18:17 Zinc Sulfate (Zinc Sulfate) 220 mg DAILY PO Last administered on 02/02/19 08:43; Admin Dose 220 MG; Start 01/17/19 at 18:17 Ascorbic Acid (Vitamin C) 250 mg DAILY PO Last administered on 02/02/19 08:44; Admin Dose 250 MG; Start 01/17/19 at 18:17 Multi-Ingredient Ointment (Aquaphor Oint 52.5 Gm) 1 applic BID TOP Last administered on 02/02/19 08:45; Admin Dose 1 APPLIC; Start 01/17/19 at 18:17 Aspirin (Aspirin) 81 mg DAILY PO Last administered on 02/02/19 08:43; Admin Dose 81 MG; Start 01/17/19 at 18:17 Bisacodyl (Dulcolax Supp) 10 mg DAILY PRN GA CONSTIPATION; Start 01/17/19 at 18:17 Zinc Acetate/ Diphenhydramine (Benadryl 2% Cr) 1 applic Q6H PRN TOP ITCHING Last administered on 01/26/19at 07:54; Admin Dose 1 APPLIC; Start 01/19/19 at 16:37 IV Flush (NS 10 ml) 10 ml PRN PRN IV IV PROTOCOL; Start 01/20/19 at 14:30 Cyanocobalamin (Vitamin B12 Inj) 1,000 mcg Q7D IM ; Start 02/03/19 at 09:00 Metoprolol Tartrate (Lopressor) 5 mg Q4H PRN IV HR>110 Hold SBP<100; Start 01/26/19 at 14:30 Furosemide (Lasix) 40 mg BID DIURETICS IV Last administered on 02/02/19 05:43; Admin Dose 40 MG; Start 01/27/19 at 18:00 Vancomycin HCl (Vanco Iv Per Pharmacy) VANCOMYCIN PER PHARMACY PER PROTOCOL XX ; Start 01/27/19 at 12:00 Norepinephrine 250 ml @ 1.875 mls/ hr TITRATE IV Last administered on 01/31/19 05:43; Admin Dose 5.625 MLS/HR; Start 01/27/19 at 12:30 Methylprednisolone Sodium Succinate (Solu-Medrol) 40 mg Q8 IV Last administered on 02/02/19 05:43; Admin Dose 40 MG; Start 01/27/19 at 14:00 Enoxaparin Sodium (Lovenox) 60 mg DAILY SC Last administered on 02/02/19 08:54; Admin Dose 60 MG; Start 01/28/19 at 09:00 Lorazepam (Ativan) 1 mg Q2 PRN IV SEIZURES Last administered on 02/02/19 09:18; Admin Dose 1 MG; Start 01/27/19 at 14:00 Aztreonam 50 ml @ 100 mls/hr Q12 IVPB Last administered on 02/02/19 09:06; A dmin Dose 100 MLS/HR; Start 01/27/19 at 16:30 Metronidazole 100 ml @ 100 mls/hr Q8 IVPB Last administered on 02/02/19 05:43; Admin Dose 100 MLS/HR; Start 01/27/19 at 15:00 Atorvastatin Calcium (Lipitor) 40 mg QHS NGT Last administered on 02/01/19 20:08; Admin Dose 40 MG; Start 01/28/19 at 21:00 Docusate Sodium (Colace Liquid Cup) 100 mg BID NGT ; Start 01/27/19 at 22:00; Status Hold Terazosin HCl (Hytrin) 10 mg HS NGT Last administered on 02/01/19 20:08; Admin Dose 10 MG; Start 01/28/19 at 21:00 Levetiracetam 100 ml @ 400 mls/hr Q12 IVPB Last administered on 02/02/19 09:06; Admin Dose 400 MLS/HR; Start 01/28/19 at 09:00 Levothyroxine Sodium (Synthroid) 125 mcg BEFORE BREAKFAST NGT Last administered on 02/02/19 08:43; Admin Dose 125 MCG; Start 01/28/19 at 07:00 Ferrous Sulfate (Feosol Liquid Cup) 300 mg WITH MEALS GTB Last administered on 02/02/19 08:43; Admin Dose 300 MG; Start 01/28/19 at 11:30 Multivitamins (Multivitamin) 30 ml DAILY GTB Last administered on 02/02/19 08:42; Admin Dose 30 ML; Start 01/28/19 at 11:00 Lansoprazole (Prevacid) 30 mg DAILY@06 NGT Last administered on 02/02/19 05:43; Admin Dose 30 MG; Start 01/28/19 at 11:00 Diagnostic Test (Pha) (Accu-Chek) 1 ea Q4 XX Last administered on 02/02/19 08:46; Admin Dose 1 EA; Start 01/28/19 at 13:00 Nystatin/ Triamcinolone Acetonide (Mycolog Oint) 1 applic BID TOP Last administered on 02/02/19 08:46; Admin Dose 1 APPLIC; Start 01/28/19 at 22:30 Insulin Aspart (Novolog Insulin Pen) NOVOLOG *MILD* ALGORI... Q4 SC Last administered on 02/01/19 20:14; Admin Dose 2 UNIT; Start 01/29/19 at 05:00 Albuterol/ Ipratropium (Duoneb) 3 ml Q6HWA RESP THERAPY HHN Last administered on 02/02/19 07:49; Admin Dose 3 ML; Start 01/29/19 at 14:00 Epoetin Dae-epbx (RETACRIT(non-esrd)) 40,000 unit Mo@1700 SC ; Start 02/03/19 at 17:00 Mupirocin (Bactroban) 1 applic BID TOP Last administered on 02/02/19 08:45; Admin Dose 1 APPLIC; Start 01/30/19 at 15:26; Stop 02/09/19 at 15:25 Vancomycin HCl 250 ml @ 125 mls/hr Q48H IVPB Last administered on 01/31/19 11:50; Admin Dose 125 MLS/HR; Start 01/31/19 at 11:00 Tobramycin Sulfate/Sodium Chloride (Nilesh Inhal) 300 mg BID RESP THERAPY NEB Last administered on 02/02/19 07:49; Admin Dose 300 MG; Start 01/30/19 at 20:00 Insulin Glargine (Lantus) 10 units DAILY@2000 SC Last administered on 02/01/19 20:15; Admin Dose 10 UNITS; Start 01/31/19 at 20:00 Insulin Human NPH (Humulin N) 3 unit Q8 SC Last administered on 02/02/19 05:55; Admin Dose 3 UNIT; Start 01/31/19 at 22:00 Potassium Chloride (Potassium Chloride Pwd/Soln) 20 meq TID NGT Last administered on 02/02/19 08:43; Admin Dose 20 MEQ; Start 02/02/19 at 09:00 COOPER CARO February 02, 2019 10:51
[2019-02-02] MEDS: VANCOMYCIN 1 GM 250 ML IVPB SCH (10:58)
--- NOTE | 2019-02-02 11:11 | CONS ---
Assessment/Plan Assessment/Plan Hospital Course 88 yo M with multiple comorbidities who initially presented for evaluation of hiccups. He was noted to become acutely altered... for which neurology is consulted. He was noted to develop ams on 01/21 around 7pm and noted on 01/22 to be unresponsive... prompting a code stroke activation. The clinical picture suggests an acute toxic-metabolic encephalopathy.. Meningoencephalitis is, though, not yet excluded. MRI brain is without acute ischemia, though notable for chronic infarcts. 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 P: Cont Keppra 500 BID for now Ativan IV PRN prolonged seizure (> 5 min) Agree w/ ASA/Lipitor daily pending the above Limit sedating medications where possible Other medical management per primary Will follow clinically Consultation Date/Type/Reason Admit Date/Time Jan 17, 2019 at 15:58 Type of Consult Neurology Reason for Consultation ams; eval for stroke Requesting Provider: IVAN AKHTAR MD Date/Time of Note DATE: 02/02/19 TIME: 11:10 24 HR Interval Summary Free Text/Dictation Transferred to telemetry. Pt was reportedly agitated this morning for which ativan was given. Exam Vital Signs Vitals Vital Signs Date Temp Pulse Resp B/P (MAP) Pulse Ox O2 O2 Flow FiO2 Time Delivery Rate 02/02/19 97.5 91 18 101/62 98 10:05 (75) 02/02/19 Nasal 2.0 07:52 Cannula 02/02/19 27 01:47 Intake and Output 02/01/19 02/01/19 02/02/19 1515:00 23:00 07:00 IntakeIntake Total 580 ml 870 ml 480 ml OutputOutput Total 1120 ml 1435 ml 1060 ml BalanceBalance -540 ml -565 ml -580 ml Exam PE: Gen Appearance: No Apparent Distress HEENT: Normocephalic; on nasal cannula Cardiovascular: Regular rate Abdomen: Soft Extremities: Dry, skin peeling NE: The patient was sedated and sparsely verbal. Unable to track or follow commands. Cranial nerve examination was limited by mental status. Pupils were equal and reactive to light. There was no afferent pupillary defect. Funduscopic examination was limited. Face was grossly symmetric. Tone was normal. Muscle bulk was normal. I did not see fasciculations. The patient withdrew all extremities to noxious stimuli Coordination and gait testing was limited by mental status. Arm and leg reflexes were within normal limits and symmetric. Gray's sign was absent. Plantar responses were flexor. NEGRA CORONA NP February 02, 2019 11:10
--- NOTE | 2019-02-02 12:10 | CONS ---
Assessment/Plan Assessment/Plan Hospital Course (Demo Recall) ID PROGRESS NOTE CURRENT ABX: DAY # => Vanco IV + Azactam + Flagyl + TOBRA INH s/p Cancidas 24 H INTERVAL SUMMARY * Lethargic, VSS, no fevers, status improved TNS out of ICU to TELE * CHART REVIEWED=> HOSPITAL COURSE: He developed worsening mental status 01/21/18. On 01/27/19, the pt was noted to have recurrent spells concerning for seizure, in the context of hypotension and hypothermia --> Tx to ICU w/Neuro on the case. EEG is without ongoing epileptiform activity - Patient too unstable for LP MICRO/OTHER * 01/30/19 EYE CX: WOUND CULTURE Preliminary SOURCE: EXUDATE FROM RIGHT EYE No growth after 2 days No growth after 1 day * 01/28/19 RESP CX: RESPIRATORY CULTURE Final Organism 1 ESCHERICHIA COLI QUANTITY SCANT GROWTH Organism 2 NORMAL RESPIRATORY MARIE QUANTITY 2+ E COLI M.I.C. RX --------- --- AMPICILLIN 4 S CEFAZOLIN I CEFOTAXIME S CIPROFLOXACIN >=4 R GENTAMICIN <=1 S LEVOFLOXACIN >=8 R TOBRAMYCIN <=1 S TRIMETHOPRIM/SULFAMETHOXAZOLE <=20 S * 01/27/19 BCX (-) * 01/21/19 BCX (-) * 01/17/19 BCX (+) Staph COAGULASE NEGATIVE STAPH == skin contaminant * 01/05/19 BCx (-) * Skin Cx (+)Mateus Albicans HPI/HOSPITAL COURSE * 88 yo M w/multiple-cardiopulmonary co-morbid conditions -- readmitted with sepsis likely due to pulmonary infection. * Patient s/p recent admission for PNA with radiological improvement -- now returns with probable persistent pulm infection + SIGNIFICANT YEAST DERMATOMYCOSIS GROIN -- Primary has narrowed ABX spectrum for concern YEAST infection and MICHELLE which is an effective strategy. * WBC down with empiric ABX coverage. * ROS: Limited by patient's critical illness DIAGNOSTIC IMAGING * 01/31/19 CXR: 1. Diffuse interstitial and airspace opacities throughout the lungs, slightly improved on the right and worsened on the left representing multifocal infection in the acute setting. Pulmonary edema could appear similarly. 2. Small bilateral pleural effusions, unchanged. * 01/28/19: MRI BRAIN: * 1. No acute intracranial abnormality. No intracranial hemorrhage, enhancing mass lesion, infarction or hydrocephalous. * 2. Remote prior right temporal lobe infarct with associated gliosis in the underlying white matter. No evidence of acute superimposed on chronic infarct. * 3. Mild to moderate peripheral and central cerebral volume loss, within normal limits for age. * 4. Mild to moderate patchy periventricular and subcortical white matter lesions, likely related to chronic microangiopathic changes. * 5. Remote lacunar infarct in the right cerebellar hemisphere * 01/15/19 CT CHEST: IMPRESSION: Patchy bilateral lung opacities, possibly representing multifocal pneumonia.Small to moderate bilateral pleural effusions.Status post CABG.Moderate atherosclerotic calcifications. Enlarged main pulmonary artery, possibly representing pulmonary hypertension.Mild diffuse subcutaneous edema.Mild to moderate dextroscoliosis. * 01/07/19 CXR:Cardiomegaly with interval mild increase in diffuse interstitial/air space opacities, representing edema and/or pneumonia. Small bilateral pleural effusions. * 12/16/18 2D ECHO Conclusions: * Normal left ventricular systolic function. Normal left ventricular cavity size. Moderate concentric left ventricular hypertrophy. Ejection fraction is visually estimated at 60 %. Tissue Doppler/Mitral Doppler indices are consistent with restrictive physiology with markedly elevated left atrial pressure (Stage III-IV diastolic dysfunction). * Mild right ventricular systolic dysfunction. Mild enlargement of right ventricle. * There is moderate enlargement of right atrium. * Normal appearance and function of the mitral valve with trace physiologic regurgitation. Mitral valve leaflets appear mildly thickened. Mild mitral annular calcification. Mild to moderate mitral valve regurgitation. * Normal appearance of the aortic valve. No significant aortic stenosis or insufficiency. No hemodynamically significant aortic stenosis by doppler. Aortic cusps appear mildly calcified. Mild aortic valve regurgitation. * Normal appearance of the tricuspid valve. Estimated peak PA systolic pressure 74 mmHg. There is moderate tricuspid regurgitation. PHYSICAL EXAMINATION: GENERAL: VSS, frail elderly male lethargic -- HEENT: AT, NC, anicteric NECK: Supple, CHEST: Equal chest rise bilaterally - diminishes bilateral HEART: Pulse RRR ABDOMEN: Soft / NT EXTREMITIES: Warm, dry SKIN: No rash, no diaphoresis == BILATERAL AXILLARY, GROIN, SANDY YEAST INFECTION ID ASSESSMENT 88 yo M w/multiple chronic co-morbid conditions re-admit with: 1. Recurrent Sepsis w/ENCEPHALOPATHY -- ASP VS HCAP 2. 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 4. 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 Advanced rheumatoid arthritis with possibility of rheumatoid lung as well. * Patient was on Remicade and stopped using it about a year ago. 6. Hypertension w/HTN heart disease 7. Hyperlipidemia. 8. Hypothyroidism. 9. Normocytic normochromic chronic anemia 10. Bilateral groin cellulitis more likely associated with mateus, patches in groin and axilla bilaterally-> recent ABX for PNA 11. Acute on chronic renal failure likely secondary to sepsis 12. Diabetes type 2. 13. CV disease, CAD, PAD, Hx of CABGx2, carotid stent 14. Peripheral vascular disease. 15. Chronic A.Fib on anticoagulants 16. ANEMIA w/ Thrombocytopenia-> s/p EGD DECEMBER 2018 * PRBC Tx PRN 17. BPH on Hytrin 18. S/P Right epididymitis 19. Pancreatic lesion per CT-> unlikely neoplasm per oncology notes (-)MRSA Nares ABX ALLERGIES: KNDA INVASIVES: PIV CURRENT ABX: DAY # => Vanco IV + Azactam + Flagyl + TOBRA INH s/p Cancidas ID RECOMMENDATIONS/PLAN: 1. Continue current ABX over the weekend 2. Full-code status noted -- appreciate palliative care efforts/notes . Consultation Date/Type/Reason Admit Date/Time Jan 17, 2019 at 15:58 Initial Consult Date Requesting Provider: IVAN AKHTAR MD Date/Time of Note DATE: 02/02/19 TIME: 12:09 Exam/Review of Systems Exam Vitals Vital Signs Date Temp Pulse Resp B/P (MAP) Pulse Ox O2 O2 Flow FiO2 Time Delivery Rate 02/02/19 97.5 91 18 101/62 98 10:05 (75) 02/02/19 Nasal 2.0 08:00 Cannula 02/02/19 27 01:47 Intake and Output 02/01/19 02/01/19 02/02/19 1515:00 23:00 07:00 IntakeIntake Total 580 ml 870 ml 480 ml OutputOutput Total 1120 ml 1435 ml 1060 ml BalanceBalance -540 ml -565 ml -580 ml Results Result Diagram: 02/02/19 0524 02/02/19 0524 Results 24hrs Laboratory Tests Test 02/01/19 12:57 02/01/19 14:59 02/01/19 17:35 02/01/19 20:11 Bedside Glucose 148 155 166 181 Test 02/01/19 22:09 02/02/19 01:26 02/02/19 05:00 02/02/19 05:19 Bedside Glucose 179 128 112 Blood Gas Blood arterial Specimen Source Arterial Blood 02/02/2019 4:46:5 Date Drawn 1 AM Arterial Blood pH 7.504 H (Temp corrected) Arterial Blood 39.3 pCO2 (Temp correct) Arterial Blood 80.3 pO2 (Temp corrected) Arterial Blood 30.2 H HCO3 Arterial Blood 6.6 H Base Excess Arterial Blood 95.8 Oxygen Saturation Manuel Test ACCEPTAB Arterial Blood Right Radial Gas Puncture Site Arterial 0.3 Blood Carboxyhemo globin Arterial Blood 0.4 Methemoglobin Blood Gas A-a O2 65.7 H Differential Oxyhemoglobin 95.1 Percent Blood Gas 37.0 Temperature Blood Gas NASAL CANNULA Modality FiO2 27.0 Blood Gas LW Notified Whom Blood Gas 02/02/2019 4:57:3 Notified Time 0 AM Test 02/02/19 05:24 02/02/19 08:08 White Blood Count 32.6 H Red Blood Count 2.91 L Hemoglobin 8.4 L Hematocrit 25.7 L Mean Corpuscular 88.3 Volume Mean Corpuscular 28.9 L Hemoglobin Mean Corpuscular 32.7 Hemoglobin Concen t Red Cell 18.6 H Distribution Width Platelet Count 137 L Mean Platelet 11.9 H Volume Immature 3.500 H Granulocytes % Neutrophils % Segmented 88 H Neutrophils % (Manual) Band Neutrophils 4 % (Manual) Lymphocytes % Lymphocytes % 4 L (Manual) Monocytes % Monocytes % 3 (Manual) Eosinophils % Basophils % Myelocytes % 1 H (Manual) Nucleated Red 3 H Blood Cells % Immature 1.140 H Granulocytes # Neutrophils # Neutrophils # 29.1 H (Manual) Band Neutrophils 1.3 H # Lymphocytes 1.3 (Manual) Lymphocytes # Monocytes # Monocytes # 0.9 (Manual) Eosinophils # Basophils # Myelocytes # 0.3 H Nucleated Red Blood Cells # Platelet Estimate DECREASED Giant Platelets 4 H Poikilocytosis 3+ Anisocytosis 3+ Macrocytosis 3+ Target Cells 1+ Sodium Level 156 H Potassium Level 3.0 L Chloride Level 117 H Carbon Dioxide 36 H Level Anion Gap 3 L Blood Urea 64 H Nitrogen Creatinine 1.43 H Est Glomerular Filtrat Rate mL/min Glucose Level 98 Lactic Acid Level 2.5 *H Calcium Level 7.5 L Bedside Glucose 88 Medications Medication Current Medications Lactulose (Enulose) 20 gm DAILY PRN PO CONSTIPATION; Start 01/17/19 at 18:17 Acetaminophen (Tylenol Tab) 650 mg Q4H PRN PO PAIN Last administered on 01/23/19at 22:48; Admin Dose 650 MG; Start 01/17/19 at 18:17 Miscellaneous Information (Pending [facility] Order For Wound Care) This patient ramirez... PRN PRN XX WOUND CARE; Start 01/17/19 at 18:17 Albuterol/ Ipratropium (Duoneb) 3 ml Q2H RESP THERAPY PRN HHN SHORTNESS OF BREATH; Start 01/17/19 at 18:17 Bisacodyl (Dulcolax) 10 mg BID PRN PO CONSTIPATION; Start 01/17/19 at 18:17; Status Hold Folic Acid (Folic Acid) 1 mg DAILY PO Last administered on 02/02/19at 08:43; Admin Dose 1 MG; Start 01/17/19 at 18:17 Latanoprost (Xalatan) 1 drop HS BOTH EYES Last administered on 02/01/19at 20:09; Admin Dose 1 DROP; Start 01/17/19 at 18:17 Nitroglycerin (Nitroglycerin (Sl Tab) 0.4 Mg) 0.4 tab Q5M PRN SL CHEST PAIN; Start 01/17/19 at 18:17 Nystatin (Nystatin Powder) 1 applic BID TOP Last administered on 02/02/19at 08:45; Admin Dose 1 APPLIC; Start 01/17/19 at 18:17 IV Flush (NS 3 ml) 3 ml PER PROTOCOL IV ; Start 01/17/19 at 18:17 Miscellaneous Information 1 ea NOTE XX ; Start 01/17/19 at 18:17 Glucose (Glutose) 15 gm Q15M PRN PO DECREASED GLUCOSE; Start 01/17/19 at 18:17 Glucose (Glutose) 22.5 gm Q15M PRN PO DECREASED GLUCOSE; Start 01/17/19 at 18:17 Dextrose (D50w Syringe) 25 ml Q15M PRN IV DECREASED GLUCOSE; Start 01/17/19 at 18:17 Dextrose (D50w Syringe) 50 ml Q15M PRN IV DECREASED GLUCOSE; Start 01/17/19 at 18:17 Glucagon (Glucagen) 1 mg Q15M PRN IM DECREASED GLUCOSE; Start 01/17/19 at 18:17 Glucose (Glutose) 15 gm Q15M PRN BUCCAL DECREASED GLUCOSE; Start 01/17/19 at 18:17 Zinc Sulfate (Zinc Sulfate) 220 mg DAILY PO Last administered on 02/02/19at 08:43; Admin Dose 220 MG; Start 01/17/19 at 18:17 Ascorbic Acid (Vitamin C) 250 mg DAILY PO Last administered on 02/02/19at 08:44; Admin Dose 250 MG; Start 01/17/19 at 18:17 Multi-Ingredient Ointment (Aquaphor Oint 52.5 Gm) 1 applic BID TOP Last administered on 02/02/19 08:45; Admin Dose 1 APPLIC; Start 01/17/19 at 18:17 Bisacodyl (Dulcolax Supp) 10 mg DAILY PRN HI CONSTIPATION; Start 01/17/19 at 18:17 Zinc Acetate/ Diphenhydramine (Benadryl 2% Cr) 1 applic Q6H PRN TOP ITCHING Last administered on 01/26/19at 07:54; Admin Dose 1 APPLIC; Start 01/19/19 at 16:37 IV Flush (NS 10 ml) 10 ml PRN PRN IV IV PROTOCOL; Start 01/20/19 at 14:30 Cyanocobalamin (Vitamin B12 Inj) 1,000 mcg Q7D IM ; Start 02/03/19 at 09:00 Metoprolol Tartrate (Lopressor) 5 mg Q4H PRN IV HR>110 Hold SBP<100; Start 01/26/19 at 14:30 Furosemide (Lasix) 40 mg BID DIURETICS IV Last administered on 02/02/19 05:43; Admin Dose 40 MG; Start 01/27/19 at 18:00 Vancomycin HCl (Vanco Iv Per Pharmacy) VANCOMYCIN PER PHARMACY PER PROTOCOL XX ; Start 01/27/19 at 12:00 Norepinephrine 250 ml @ 1.875 mls/ hr TITRATE IV Last administered on 01/31/19at 05:43; Admin Dose 5.625 MLS/HR; Start 01/27/19 at 12:30 Enoxaparin Sodium (Lovenox) 60 mg DAILY SC Last administered on 5/12/19at 08:5 4; Admin Dose 60 MG; Start 01/28/19 at 09:00 Lorazepam (Ativan) 1 mg Q2 PRN IV SEIZURES Last administered on 02/02/19 09:18; Admin Dose 1 MG; Start 01/27/19 at 14:00 Aztreonam 50 ml @ 100 mls/hr Q12 IVPB Last administered on 02/02/19 09:06; Admin Dose 100 MLS/HR; Start 01/27/19 at 16:30 Metronidazole 100 ml @ 100 mls/hr Q8 IVPB Last administered on 02/02/19 05:43; Admin Dose 100 MLS/HR; Start 01/27/19 at 15:00 Atorvastatin Calcium (Lipitor) 40 mg QHS NGT Last administered on 02/01/19 20:08; Admin Dose 40 MG; Start 01/28/19 at 21:00 Docusate Sodium (Colace Liquid Cup) 100 mg BID NGT ; Start 01/27/19 at 22:00; Status Hold Terazosin HCl (Hytrin) 10 mg HS NGT Last administered on 02/01/19 20:08; Admin Dose 10 MG; Start 01/28/19 at 21:00 Levetiracetam 100 ml @ 400 mls/hr Q12 IVPB Last administered on 02/02/19 09:06; Admin Dose 400 MLS/HR; Start 01/28/19 at 09:00 Levothyroxine Sodium (Synthroid) 125 mcg BEFORE BREAKFAST NGT Last administered on 02/02/19 08:43; Admin Dose 125 MCG; Start 01/28/19 at 07:00 Ferrous Sulfate (Feosol Liquid Cup) 300 mg WITH MEALS GTB Last administered on 02/02/19 10:59; Admin Dose 300 MG; Start 01/28/19 at 11:30 Multivitamins (Multivitamin) 30 ml DAILY GTB Last administered on 02/02/19 08:42; Admin Dose 30 ML; Start 01/28/19 at 11:00 Lansoprazole (Prevacid) 30 mg DAILY@06 NGT Last administered on 02/02/19 05:43; Admin Dose 30 MG; Start 01/28/19 at 11:00 Diagnostic Test (Pha) (Accu-Chek) 1 ea Q4 XX Last administered on 02/02/19 08:46; Admin Dose 1 EA; Start 01/28/19 at 13:00 Nystatin/ Triamcinolone Acetonide (Mycolog Oint) 1 applic BID TOP Last administered on 02/02/19 08:46; Admin Dose 1 APPLIC; Start 01/28/19 at 22:30 Insulin Aspart (Novolog Insulin Pen) NOVOLOG *MILD* ALGORI... Q4 SC Last administered on 02/01/19 20:14; Admin Dose 2 UNIT; Start 01/29/19 at 05:00 Albuterol/ Ipratropium (Duoneb) 3 ml Q6HWA RESP THERAPY HHN Last administered on 02/02/19 07:49; Admin Dose 3 ML; Start 01/29/19 at 14:00 Epoetin Dae-epbx (RETACRIT(non-esrd)) 40,000 unit Mo@1700 SC ; Start 02/03/19 at 17:00 Mupirocin (Bactroban) 1 applic BID TOP Last administered on 02/02/19 08:45; Admin Dose 1 APPLIC; Start 01/30/19 at 15:26; Stop 02/09/19 at 15:25 Vancomycin HCl 250 ml @ 125 mls/hr Q48H IVPB Last administered on 02/02/19 10:58; Admin Dose 125 MLS/HR; Start 01/31/19 at 11:00 Tobramycin Sulfate/Sodium Chloride (Nilesh Inhal) 300 mg BID RESP THERAPY NEB Last administered on 02/02/19 07:49; Admin Dose 300 MG; Start 01/30/19 at 20:00 Insulin Glargine (Lantus) 10 units DAILY@2000 SC Last administered on 02/01/19 20:15; Admin Dose 10 UNITS; Start 01/31/19 at 20:00 Potassium Chloride (Potassium Chloride Pwd/Soln) 20 meq TID NGT Last administered on 02/02/19 08:43; Admin Dose 20 MEQ; Start 02/02/19 at 09:00 Methylprednisolone Sodium Succinate (Solu-Medrol) 40 mg DAILY IV ; Start 02/03/19 at 09:00 Insulin Human NPH (Humulin N) 3 unit DAILY SC ; Start 02/03/19 at 09:00 NEDA ENRIQUEZ NP February 02, 2019 12:10
[2019-02-02] MEDS ORDERED: QUETIAPINE 25 MG TAB NGT PRN (13:00)
[2019-02-02] MEDS ORDERED: D5-0.2 NACL + KCL 20 MEQ 1,000 ML IV SCH (13:30)
--- NOTE | 2019-02-02 15:15 | CONS ---
Consult Date/Type/Reason Admit Date/Time Jan 17, 2019 at 15:58 Initial Consult Date Type of Consultation: Pulm/CCM Requesting Provider: IVAN AKHTAR MD Date/Time of Note DATE: 02/02/19 TIME: 15:11 Subjective NO acute events - pt comfortable - no CP now - transfer to [facility] - [facility] communicate today - family at bedside - happy with care. ROS: No fever, no chills, no nausea, no vomiting, no diarrhea/constipation - per nurse - con't skin desquamation, better now Objective Vitals Vital Signs Date Temp Pulse Resp B/P (MAP) Pulse Ox O2 O2 Flow FiO2 Time Delivery Rate 02/02/19 2.0 13:56 02/02/19 77 16 100 Nasal 13:56 Cannula 02/02/19 98.7 136/56 12:00 (82) 02/02/19 27 01:47 Intake and Output 02/01/19 02/01/19 02/02/19 1515:00 23:00 07:00 IntakeIntake Total 580 ml 870 ml 480 ml OutputOutput Total 1120 ml 1435 ml 1060 ml BalanceBalance -540 ml -565 ml -580 ml Results/Medications Result Diagram: 02/02/1924 02/02/19 0524 Results 24 hrs Laboratory Tests Test 02/01/19 17:35 02/01/19 20:11 02/01/19 22:09 02/02/19 01:26 Bedside Glucose 166 181 179 128 Test 02/02/19 05:00 02/02/19 05:19 02/02/19 05:24 02/02/19 08:08 Blood Gas Blood arterial Specimen Source Arterial Blood 02/02/2019 4:46:5 Date Drawn 1 AM Arterial Blood pH 7.504 H (Temp corrected) Arterial Blood 39.3 pCO2 (Temp correct) Arterial Blood 80.3 pO2 (Temp corrected) Arterial Blood 30.2 H HCO3 Arterial Blood 6.6 H Base Excess Arterial Blood 95.8 Oxygen Saturation Manuel Test ACCEPTAB Arterial Blood Right Radial Gas Puncture Site Arterial 0.3 Blood Carboxyhemo globin Arterial Blood 0.4 Methemoglobin Blood Gas A-a O2 65.7 H Differential Oxyhemoglobin 95.1 Percent Blood Gas 37.0 Temperature Blood Gas NASAL CANNULA Modality FiO2 27.0 Blood Gas LW Notified Whom Blood Gas 02/02/2019 4:57:3 Notified Time 0 AM Bedside Glucose 112 88 White Blood Count 32.6 H Red Blood Count 2.91 L Hemoglobin 8.4 L Hematocrit 25.7 L Mean Corpuscular 88.3 Volume Mean Corpuscular 28.9 L Hemoglobin Mean Corpuscular 32.7 Hemoglobin Concen t Red Cell 18.6 H Distribution Width Platelet Count 137 L Mean Platelet 11.9 H Volume Immature 3.500 H Granulocytes % Neutrophils % Segmented 88 H Neutrophils % (Manual) Band Neutrophils 4 % (Manual) Lymphocytes % Lymphocytes % 4 L (Manual) Monocytes % Monocytes % 3 (Manual) Eosinophils % Basophils % Myelocytes % 1 H (Manual) Nucleated Red 3 H Blood Cells % Immature 1.140 H Granulocytes # Neutrophils # Neutrophils # 29.1 H (Manual) Band Neutrophils 1.3 H # Lymphocytes 1.3 (Manual) Lymphocytes # Monocytes # Monocytes # 0.9 (Manual) Eosinophils # Basophils # Myelocytes # 0.3 H Nucleated Red Blood Cells # Platelet Estimate DECREASED Giant Platelets 4 H Poikilocytosis 3+ Anisocytosis 3+ Macrocytosis 3+ Target Cells 1+ Sodium Level 156 H Potassium Level 3.0 L Chloride Level 117 H Carbon Dioxide 36 H Level Anion Gap 3 L Blood Urea 64 H Nitrogen Creatinine 1.43 H Est Glomerular Filtrat Rate mL/min Glucose Level 98 Lactic Acid Level 2.5 *H Calcium Level 7.5 L Test 02/02/19 13:18 Bedside Glucose 140 Home Meds Active Scripts Apixaban* (Eliquis*) 5 Mg Tablet, 2.5 MG PO BID for 30 Days, TAB Prov:IVAN AKHTAR MD 12/20/18 Metoprolol Tartrate* (Lopressor*) 50 Mg Tab, 50 MG PO BID for 30 Days, TAB Prov:COOPER CARO 12/20/18 Reported Medications Furosemide* (Lasix*) 20 Mg Tablet, 20 MG PO BID, TAB 01/05/19 Polyethylene Glycol* (Miralax*) 17 Gm Powd.pack, 17 GM PO DAILY, #30 PACKET 12/15/18 Nifedipine* (Nifedipine ER*) 60 Mg Tablet.sa, 60 MG PO DAILY, TAB.SA 12/15/18 Bisacodyl* (Bisacodyl*) 5 Mg Tablet.dr, 10 MG PO BID PRN for CONSTIPATION, TAB 12/15/18 Pregabalin* (Lyrica*) 25 Mg Capsule, 25 MG PO TID, CAP 12/15/18 Bimatoprost* (Lumigan*) 0.01%-5 Ml Opht Drops, 1 DROP BOTH EYES HS, EA 03/02/18 Cetirizine Hcl* (Cetirizine Hcl*) 10 Mg Tablet, 10 MG PO DAILY, #30 TAB 03/02/18 Insulin Glargine* (Lantus*) 100 Unit/Ml Soln, 10 UNIT SC QHS, #1 VIAL 03/02/18 Ergocalciferol (Vitamin D2) (VITAMIN D2) 2,000 Unit Tablet, 2000 UNIT PO DAILY, TAB 03/02/18 Famotidine* (Famotidine*) 20 Mg Tablet, 20 MG PO DAILY, #30 TAB 03/02/18 Ferrous Sulfate* (Ferrous Sulfate*) 325 Mg Tabec, 325 MG PO BID, TAB 03/02/18 Nitroglycerin* (Nitrostat*) 0.4 Mg Tab.subl, 0.4 MG SL Q5MIN PRN for CHEST PAIN, BOTTLE 03/02/18 Terazosin Hcl* (Terazosin Hcl*) 10 Mg Capsule, 10 MG PO HS, CAP 03/02/18 Levothyroxine Sodium* (Levoxyl*) 125 Mcg Tablet, 125 MCG PO BEFORE BREAKFAST, #30 TAB 03/02/18 Allopurinol* (Allopurinol*) 100 Mg Tablet, 100 MG PO BID, TAB 03/02/18 Atorvastatin* (Atorvastatin*) 40 Mg Tablet, 40 MG PO QHS, #30 TAB 03/02/18 Folic Acid* (Folic Acid*) 1 Mg Tablet, 1 MG PO DAILY, TAB 03/02/18 Medications Current Medications Lactulose (Enulose) 20 gm DAILY PRN PO CONSTIPATION; Start 01/17/19 at 18:17 Acetaminophen (Tylenol Tab) 650 mg Q4H PRN PO PAIN Last administered on 01/23/19at 22:48; Admin Dose 650 MG; Start 01/17/19 at 18:17 [facility] This patient ramirez... PRN PRN XX WOUND CARE; Start 01/17/19 at 18:17 Albuterol/ Ipratropium (Duoneb) 3 ml Q2H RESP THERAPY PRN HHN SHORTNESS OF BREATH; Start 01/17/19 at 18:17 Bisacodyl (Dulcolax) 10 mg BID PRN PO CONSTIPATION; Start 01/17/19 at 18:17; Status Hold Folic Acid (Folic Acid) 1 mg DAILY PO Last administered on 02/02/19 08:43; Admin Dose 1 MG; Start 01/17/19 at 18:17 Latanoprost (Xalatan) 1 drop HS BOTH EYES Last administered on 02/01/19 20:09; Admin Dose 1 DROP; Start 01/17/19 at 18:17 Nitroglycerin (Nitroglycerin (Sl Tab) 0.4 Mg) 0.4 tab Q5M PRN SL CHEST PAIN; Start 01/17/19 at 18:17 Nystatin (Nystatin Powder) 1 applic BID TOP Last administered on 02/02/19 08:45; Admin Dose 1 APPLIC; Start 01/17/19 at 18:17 IV Flush (NS 3 ml) 3 ml PER PROTOCOL IV ; Start 01/17/19 at 18:17 Miscellaneous Information 1 ea NOTE XX ; Start 01/17/19 at 18:17 Glucose (Glutose) 15 gm Q15M PRN PO DECREASED GLUCOSE; Start 01/17/19 at 18:17 Glucose (Glutose) 22.5 gm Q15M PRN PO DECREASED GLUCOSE; Start 01/17/19 at 18:17 Dextrose (D50w Syringe) 25 ml Q15M PRN IV DECREASED GLUCOSE; Start 01/17/19 at 18:17 Dextrose (D50w Syringe) 50 ml Q15M PRN IV DECREASED GLUCOSE; Start 01/17/19 at 18:17 Glucagon (Glucagen) 1 mg Q15M PRN IM DECREASED GLUCOSE; Start 01/17/19 at 18:17 Glucose (Glutose) 15 gm Q15M PRN BUCCAL DECREASED GLUCOSE; Start 01/17/19 at 18:17 Zinc Sulfate (Zinc Sulfate) 220 mg DAILY PO Last administered on 02/02/19 08:43; Admin Dose 220 MG; Start 01/17/19 at 18:17 Ascorbic Acid (Vitamin C) 250 mg DAILY PO Last administered on 02/02/19 08:44; Admin Dose 250 MG; Start 01/17/19 at 18:17 Multi-Ingredient Ointment (Aquaphor Oint 52.5 Gm) 1 applic BID TOP Last administered on 02/02/19 08:45; Admin Dose 1 APPLIC; Start 01/17/19 at 18:17 Bisacodyl (Dulcolax Supp) 10 mg DAILY PRN LA CONSTIPATION; Start 01/17/19 at 18:17 Zinc Acetate/ Diphenhydramine (Benadryl 2% Cr) 1 applic Q6H PRN TOP ITCHING Last administered on 01/26/19 07:54; Admin Dose 1 APPLIC; Start 01/19/19 at 16:37 IV Flush (NS 10 ml) 10 ml PRN PRN IV IV PROTOCOL; Start 01/20/19 at 14:30 Cyanocobalamin (Vitamin B12 Inj) 1,000 mcg Q7D IM ; Start 02/03/19 at 09:00 Metoprolol Tartrate (Lopressor) 5 mg Q4H PRN IV HR>110 Hold SBP<100; Start 01/26/19 at 14:30 Furosemide (Lasix) 40 mg BID DIURETICS IV Last administered on 02/02/19 05:43; Admin Dose 40 MG; Start 01/27/19 at 18:00 Vancomycin HCl (Vanco Iv Per Pharmacy) VANCOMYCIN PER PHARMACY PER PROTOCOL XX ; Start 01/27/19 at 12:00 Enoxaparin Sodium (Lovenox) 60 mg DAILY SC Last administered on 02/02/19 08:54; Admin Dose 60 MG; Start 01/28/19 at 09:00 Lorazepam (Ativan) 1 mg Q2 PRN IV SEIZURES Last administered on 02/02/19 09:18; Admin Dose 1 MG; Start 01/27/19 at 14:00 Aztreonam 50 ml @ 100 mls/hr Q12 IVPB Last administered on 02/02/19 09:06; Admin Dose 100 MLS/HR; Start 01/27/19 at 16:30 Metronidazole 100 ml @ 100 mls/hr Q8 IVPB Last administered on 02/02/19 13:20; Admin Dose 100 MLS/HR; Start 01/27/19 at 15:00 Atorvastatin Calcium (Lipitor) 40 mg QHS NGT Last administered on 02/01/19 20:08; Admin Dose 40 MG; Start 01/28/19 at 21:00 Docusate Sodium (Colace Liquid Cup) 100 mg BID NGT ; Start 01/27/19 at 22:00; Status Hold Terazosin HCl (Hytrin) 10 mg HS NGT Last administered on 02/01/19 20:08; Admin Dose 10 MG; Start 01/28/19 at 21:00 Levetiracetam 100 ml @ 400 mls/hr Q12 IVPB Last administered on 02/02/19 09:06; Admin Dose 400 MLS/HR; Start 01/28/19 at 09:00 Levothyroxine Sodium (Synthroid) 125 mcg BEFORE BREAKFAST NGT Last administered on 02/02/19 08:43; Admin Dose 125 MCG; Start 01/28/19 at 07:00 Ferrous Sulfate (Feosol Liquid Cup) 300 mg WITH MEALS GTB Last administered on 02/02/19 10:59; Admin Dose 300 MG; Start 01/28/19 at 11:30 Multivitamins (Multivitamin) 30 ml DAILY GTB Last administered on 02/02/19 08:42; Admin Dose 30 ML; Start 01/28/19 at 11:00 Lansoprazole (Prevacid) 30 mg DAILY@06 NGT Last administered on 02/02/19 05:43; Admin Dose 30 MG; Start 01/28/19 at 11:00 Diagnostic Test (Pha) (Accu-Chek) 1 ea Q4 XX Last administered on 02/02/19 13:20; Admin Dose 1 EA; Start 01/28/19 at 13:00 Nystatin/ Triamcinolone Acetonide (Mycolog Oint) 1 applic BID TOP Last administered on 02/02/19 08:46; Admin Dose 1 APPLIC; Start 01/28/19 at 22:30 Insulin Aspart (Novolog Insulin Pen) NOVOLOG *MILD* ALGORI... Q4 SC Last admin istered on 02/01/19 20:14; Admin Dose 2 UNIT; Start 01/29/19 at 05:00 Albuterol/ Ipratropium (Duoneb) 3 ml Q6HWA RESP THERAPY HHN Last administered on 02/02/19 13:56; Admin Dose 3 ML; Start 01/29/19 at 14:00 Epoetin Dae-epbx (RETACRIT(non-esrd)) 40,000 unit Mo@1700 SC ; Start 02/03/19 at 17:00 Mupirocin (Bactroban) 1 applic BID TOP Last administered on 02/02/19at 08:45; Admin Dose 1 APPLIC; Start 01/30/19 at 15:26; Stop 02/09/19 at 15:25 Vancomycin HCl 250 ml @ 125 mls/hr Q48H IVPB Last administered on 02/02/19at 10:58; Admin Dose 125 MLS/HR; Start 01/31/19 at 11:00 Tobramycin Sulfate/Sodium Chloride (Nilesh Inhal) 300 mg BID RESP THERAPY NEB Last administered on 02/02/19at 07:49; Admin Dose 300 MG; Start 01/30/19 at 20:00 Insulin Glargine (Lantus) 10 units DAILY@2000 SC Last administered on 02/01/19at 20:15; Admin Dose 10 UNITS; Start 01/31/19 at 20:00 Potassium Chloride (Potassium Chloride Pwd/Soln) 20 meq TID NGT Last administered on 02/02/19at 13:21; Admin Dose 20 MEQ; Start 02/02/19 at 09:00 Methylprednisolone Sodium Succinate (Solu-Medrol) 40 mg DAILY IV ; Start 02/03/19 at 09:00 Insulin Human NPH (Humulin N) 3 unit DAILY SC ; Start 02/03/19 at 09:00 Potassium Chloride/Dextrose/ Sod Cl 1,000 ml @ 40 mls/hr Q24H IV Last administered on 02/02/19at 14:37; Admin Dose 40 MLS/HR; Start 02/02/19 at 13:30 Assessment/Plan Hospital Course (Demo Recall) 1. Atrial fibrillation, currently rate controlled.-off systemic anticoagulation due to anemia. On ASA only now - RATE CONTROLLED. now in a. fib. 2. Possible congestive heart failure by chest x-ray, which will be diastolic, acute on chronic by most recent echo with an EF of 60%.Spot diuresis as needed. Con't to follow. Euvolemic by exam. 3. Tricuspid regurgitation, moderate by most recent echo. 4. Acute on chronic renal failure - Cr 1.42 - avoid nephrotoxic meds. Dr. Alatorre follow. Stable. Reasonable urine output. UNCHANGED, now with high Na 156 - renal team follows. 5. Possible pneumonia - on anti-bx now. ID follows On pressors now. 6. History of coronary artery disease, status post coronary artery bypass graft surgery. Treated. 7. Dyslipidemia. 8. Rheumatoid arthritis - Rx per rheumatology. 9. Groin cellulitis. 10. Anemia-worsening again today requiring transfusions PRBC's.Now post-op s/p endoscopy ? findings - H/H at 6.4 - blood Rx to follow,trending down again 8.4 11. Diabetes mellitus. 12. Sepsis LOU PATINO MD February 02, 2019 15:15
--- NOTE | 2019-02-02 15:24 | CONS ---
Consult Date/Type/Reason Admit Date/Time Jan 17, 2019 at 15:58 Initial Consult Date 01/18/19 Type of Consultation: Pulm/CCM Requesting Provider: IVAN AKHTAR MD Date/Time of Note DATE: 02/02/19 TIME: 15:21 Subjective No events. Resting comfortably. Objective Vitals Vital Signs Date Temp Pulse Resp B/P (MAP) Pulse Ox O2 O2 Flow FiO2 Time Delivery Rate 02/02/19 2.0 13:56 02/02/19 77 16 100 Nasal 13:56 Cannula 02/02/19 98.7 136/56 12:00 (82) 02/02/19 27 01:47 Intake and Output 02/01/19 02/01/19 02/02/19 1515:00 23:00 07:00 IntakeIntake Total 580 ml 870 ml 480 ml OutputOutput Total 1120 ml 1435 ml 1060 ml BalanceBalance -540 ml -565 ml -580 ml Exam HEENT: Neck supple; no JVD; no LAD CVS: RRR, S1 and S2 CHEST: Coarse BS with occ rhonchi B/L ABD: Soft, NT, + BS EXT: No c/c/e; bullous skin lesions Results/Medications Result Diagram: 02/02/1952302/02/19523 Results 24 hrs Laboratory Tests Test 02/01/19 17:35 02/01/19 20:11 02/01/19 22:09 02/02/19 01:26 Bedside Glucose 166 181 179 128 Test 02/02/19 05:00 02/02/19 05:19 02/02/19 05:24 02/02/19 08:08 Blood Gas Blood arterial Specimen Source Arterial Blood 02/02/2019 4:46:5 Date Drawn 1 AM Arterial Blood pH 7.504 H (Temp corrected) Arterial Blood 39.3 pCO2 (Temp correct) Arterial Blood 80.3 pO2 (Temp corrected) Arterial Blood 30.2 H HCO3 Arterial Blood 6.6 H Base Excess Arterial Blood 95.8 Oxygen Saturation Manuel Test ACCEPTAB Arterial Blood Right Radial Gas Puncture Site Arterial 0.3 Blood Carboxyhemo globin Arterial Blood 0.4 Methemoglobin Blood Gas A-a O2 65.7 H Differential Oxyhemoglobin 95.1 Percent Blood Gas 37.0 Temperature Blood Gas NASAL CANNULA Modality FiO2 27.0 Blood Gas LW Notified Whom Blood Gas 02/02/2019 4:57:3 Notified Time 0 AM Bedside Glucose 112 88 White Blood Count 32.6 H Red Blood Count 2.91 L Hemoglobin 8.4 L Hematocrit 25.7 L Mean Corpuscular 88.3 Volume Mean Corpuscular 28.9 L Hemoglobin Mean Corpuscular 32.7 Hemoglobin Concen t Red Cell 18.6 H Distribution Width Platelet Count 137 L Mean Platelet 11.9 H Volume Immature 3.500 H Granulocytes % Neutrophils % Segmented 88 H Neutrophils % (Manual) Band Neutrophils 4 % (Manual) Lymphocytes % Lymphocytes % 4 L (Manual) Monocytes % Monocytes % 3 (Manual) Eosinophils % Basophils % Myelocytes % 1 H (Manual) Nucleated Red 3 H Blood Cells % Immature 1.140 H Granulocytes # Neutrophils # Neutrophils # 29.1 H (Manual) Band Neutrophils 1.3 H # Lymphocytes 1.3 (Manual) Lymphocytes # Monocytes # Monocytes # 0.9 (Manual) Eosinophils # Basophils # Myelocytes # 0.3 H Nucleated Red Blood Cells # Platelet Estimate DECREASED Giant Platelets 4 H Poikilocytosis 3+ Anisocytosis 3+ Macrocytosis 3+ Target Cells 1+ Sodium Level 156 H Potassium Level 3.0 L Chloride Level 117 H Carbon Dioxide 36 H Level Anion Gap 3 L Blood Urea 64 H Nitrogen Creatinine 1.43 H Est Glomerular Filtrat Rate mL/min Glucose Level 98 Lactic Acid Level 2.5 *H Calcium Level 7.5 L Test 02/02/19 13:18 Bedside Glucose 140 Home Meds Active Scripts Apixaban* (Eliquis*) 5 Mg Tablet, 2.5 MG PO BID for 30 Days, TAB Prov:IVAN AKHTAR MD 12/20/18 Metoprolol Tartrate* (Lopressor*) 50 Mg Tab, 50 MG PO BID for 30 Days, TAB Prov:COOPER CARO 12/20/18 Reported Medications Furosemide* (Lasix*) 20 Mg Tablet, 20 MG PO BID, TAB 01/05/19 Polyethylene Glycol* (Miralax*) 17 Gm Powd.pack, 17 GM PO DAILY, #30 PACKET 12/15/18 Nifedipine* (Nifedipine ER*) 60 Mg Tablet.sa, 60 MG PO DAILY, TAB.SA 12/15/18 Bisacodyl* (Bisacodyl*) 5 Mg Tablet.dr, 10 MG PO BID PRN for CONSTIPATION, TAB 12/15/18 Pregabalin* (Lyrica*) 25 Mg Capsule, 25 MG PO TID, CAP 12/15/18 Bimatoprost* (Lumigan*) 0.01%-5 Ml Opht Drops, 1 DROP BOTH EYES HS, EA 03/02/18 Cetirizine Hcl* (Cetirizine Hcl*) 10 Mg Tablet, 10 MG PO DAILY, #30 TAB 03/02/18 Insulin Glargine* (Lantus*) 100 Unit/Ml Soln, 10 UNIT SC QHS, #1 VIAL 03/02/18 Ergocalciferol (Vitamin D2) (VITAMIN D2) 2,000 Unit Tablet, 2000 UNIT PO DAILY, TAB 03/02/18 Famotidine* (Famotidine*) 20 Mg Tablet, 20 MG PO DAILY, #30 TAB 03/02/18 Ferrous Sulfate* (Ferrous Sulfate*) 325 Mg Tabec, 325 MG PO BID, TAB 03/02/18 Nitroglycerin* (Nitrostat*) 0.4 Mg Tab.subl, 0.4 MG SL Q5MIN PRN for CHEST PAIN, BOTTLE 03/02/18 Terazosin Hcl* (Terazosin Hcl*) 10 Mg Capsule, 10 MG PO HS, CAP 03/02/18 Levothyroxine Sodium* (Levoxyl*) 125 Mcg Tablet, 125 MCG PO BEFORE BREAKFAST, #30 TAB 03/02/18 Allopurinol* (Allopurinol*) 100 Mg Tablet, 100 MG PO BID, TAB 03/02/18 Atorvastatin* (Atorvastatin*) 40 Mg Tablet, 40 MG PO QHS, #30 TAB 03/02/18 Folic Acid* (Folic Acid*) 1 Mg Tablet, 1 MG PO DAILY, TAB 03/02/18 Medications Current Medications Lactulose (Enulose) 20 gm DAILY PRN PO CONSTIPATION; Start 01/17/19 at 18:17 Acetaminophen (Tylenol Tab) 650 mg Q4H PRN PO PAIN Last administered on 01/23/19at 22:48; Admin Dose 650 MG; Start 01/17/19 at 18:17 Miscellaneous Information (Pending [facility] Order For Wound Care) This patient ramirez... PRN PRN XX WOUND CARE; Start 01/17/19 at 18:17 Albuterol/ Ipratropium (Duoneb) 3 ml Q2H RESP THERAPY PRN HHN SHORTNESS OF BREATH; Start 01/17/19 at 18:17 Bisacodyl (Dulcolax) 10 mg BID PRN PO CONSTIPATION; Start 01/17/19 at 18:17; Status Hold Folic Acid (Folic Acid) 1 mg DAILY PO Last administered on 02/02/19 08:43; Admin Dose 1 MG; Start 01/17/19 at 18:17 Latanoprost (Xalatan) 1 drop HS BOTH EYES Last administered on 02/01/19at 20:09; Admin Dose 1 DROP; Start 01/17/19 at 18:17 Nitroglycerin (Nitroglycerin (Sl Tab) 0.4 Mg) 0.4 tab Q5M PRN SL CHEST PAIN; Start 01/17/19 at 18:17 Nystatin (Nystatin Powder) 1 applic BID TOP Last administered on 02/02/19at 08:45; Admin Dose 1 APPLIC; Start 01/17/19 at 18:17 IV Flush (NS 3 ml) 3 ml PER PROTOCOL IV ; Start 01/17/19 at 18:17 Miscellaneous Information 1 ea NOTE XX ; Start 01/17/19 at 18:17 Glucose (Glutose) 15 gm Q15M PRN PO DECREASED GLUCOSE; Start 01/17/19 at 18:17 Glucose (Glutose) 22.5 gm Q15M PRN PO DECREASED GLUCOSE; Start 01/17/19 at 18:17 Dextrose (D50w Syringe) 25 ml Q15M PRN IV DECREASED GLUCOSE; Start 01/17/19 at 18:17 Dextrose (D50w Syringe) 50 ml Q15M PRN IV DECREASED GLUCOSE; Start 01/17/19 at 18:17 Glucagon (Glucagen) 1 mg Q15M PRN IM DECREASED GLUCOSE; Start 01/17/19 at 18:17 Glucose (Glutose) 15 gm Q15M PRN BUCCAL DECREASED GLUCOSE; Start 01/17/19 at 18:17 Zinc Sulfate (Zinc Sulfate) 220 mg DAILY PO Last administered on 02/02/19at 08:43; Admin Dose 220 MG; Start 01/17/19 at 18:17 Ascorbic Acid (Vitamin C) 250 mg DAILY PO Last administered on 02/02/19at 08:44; Admin Dose 250 MG; Start 01/17/19 at 18:17 Multi-Ingredient Ointment (Aquaphor Oint 52.5 Gm) 1 applic BID TOP Last administered on 02/02/19 08:45; Admin Dose 1 APPLIC; Start 01/17/19 at 18:17 Bisacodyl (Dulcolax Supp) 10 mg DAILY PRN LA CONSTIPATION; Start 01/17/19 at 18:17 Zinc Acetate/ Diphenhydramine (Benadryl 2% Cr) 1 applic Q6H PRN TOP ITCHING Last administered on 01/26/19 07:54; Admin Dose 1 APPLIC; Start 01/19/19 at 16:37 IV Flush (NS 10 ml) 10 ml PRN PRN IV IV PROTOCOL; Start 01/20/19 at 14:30 Cyanocobalamin (Vitamin B12 Inj) 1,000 mcg Q7D IM ; Start 02/03/19 at 09:00 Metoprolol Tartrate (Lopressor) 5 mg Q4H PRN IV HR>110 Hold SBP<100; Start 01/26/19 at 14:30 Furosemide (Lasix) 40 mg BID DIURETICS IV Last administered on 02/02/19 05:43; Admin Dose 40 MG; Start 01/27/19 at 18:00 Vancomycin HCl (Vanco Iv Per Pharmacy) VANCOMYCIN PER PHARMACY PER PROTOCOL XX ; Start 01/27/19 at 12:00 Enoxaparin Sodium (Lovenox) 60 mg DAILY SC Last administered on 02/02/19 08:54; Admin Dose 60 MG; Start 01/28/19 at 09:00 Lorazepam (Ativan) 1 mg Q2 PRN IV SEIZURES Last administered on 02/02/19 09:18; Admin Dose 1 MG; Start 01/27/19 at 14:00 Aztreonam 50 ml @ 100 mls/hr Q12 IVPB Last administered on 02/02/19 09:06; Admin Dose 100 MLS/HR; Start 01/27/19 at 16:30 Metronidazole 100 ml @ 100 mls/hr Q8 IVPB Last administered on 02/02/19 13:20; Admin Dose 100 MLS/HR; Start 01/27/19 at 15:00 Atorvastatin Calcium (Lipitor) 40 mg QHS NGT Last administered on 02/01/19 20:08; Admin Dose 40 MG; Start 01/28/19 at 21:00 Docusate Sodium (Colace Liquid Cup) 100 mg BID NGT ; Start 01/27/19 at 22:00; Status Hold Terazosin HCl (Hytrin) 10 mg HS NGT Last administered on 02/01/19 20:08; Admin Dose 10 MG; Start 01/28/19 at 21:00 Levetiracetam 100 ml @ 400 mls/hr Q12 IVPB Last administered on 02/02/19 09:06; Admin Dose 400 MLS/HR; Start 01/28/19 at 09:00 Levothyroxine Sodium (Synthroid) 125 mcg BEFORE BREAKFAST NGT Last administered on 02/02/19 08:43; Admin Dose 125 MCG; Start 01/28/19 at 07:00 Ferrous Sulfate (Feosol Liquid Cup) 300 mg WITH MEALS GTB Last administered on 02/02/19 10:59; Admin Dose 300 MG; Start 01/28/19 at 11:30 Multivitamins (Multivitamin) 30 ml DAILY GTB Last administered on 02/02/19 08:42; Admin Dose 30 ML; Start 01/28/19 at 11:00 Lansoprazole (Prevacid) 30 mg DAILY@06 NGT Last administered on 02/02/19 05:43; Admin Dose 30 MG; Start 01/28/19 at 11:00 Diagnostic Test (Pha) (Accu-Chek) 1 ea Q4 XX Last administered on 02/02/19 13:20; Admin Dose 1 EA; Start 01/28/19 at 13:00 Nystatin/ Triamcinolone Acetonide (Mycolog Oint) 1 applic BID TOP Last administered on 02/02/19 08:46; Admin Dose 1 APPLIC; Start 01/28/19 at 22:30 Insulin Aspart (Novolog Insulin Pen) NOVOLOG *MILD* ALGORI... Q4 SC Last administered on 02/01/19 20:14; Admin Dose 2 UNIT; Start 01/29/19 at 05:00 Albuterol/ Ipratropium (Duoneb) 3 ml Q6HWA RESP THERAPY HHN Last administered on 02/02/19 13:56; Admin Dose 3 ML; Start 01/29/19 at 14:00 Epoetin Dae-epbx (RETACRIT(non-esrd)) 40,000 unit Mo@1700 SC ; Start 02/03/19 at 17:00 Mupirocin (Bactroban) 1 applic BID TOP Last administered on 02/02/19at 08:45; Admin Dose 1 APPLIC; Start 01/30/19 at 15:26; Stop 02/09/19 at 15:25 Vancomycin HCl 250 ml @ 125 mls/hr Q48H IVPB Last administered on 02/02/19at 10:58; Admin Dose 125 MLS/HR; Start 01/31/19 at 11:00 Tobramycin Sulfate/Sodium Chloride (Nilesh Inhal) 300 mg BID RESP THERAPY NEB Last administered on 02/02/19 07:49; Admin Dose 300 MG; Start 01/30/19 at 20:00 Insulin Glargine (Lantus) 10 units DAILY@2000 SC Last administered on 02/01/19at 20:15; Admin Dose 10 UNITS; Start 01/31/19 at 20:00 Potassium Chloride (Potassium Chloride Pwd/Soln) 20 meq TID NGT Last adm inistered on 02/02/19at 13:21; Admin Dose 20 MEQ; Start 02/02/19 at 09:00 Methylprednisolone Sodium Succinate (Solu-Medrol) 40 mg DAILY IV ; Start 02/03/19 at 09:00 Insulin Human NPH (Humulin N) 3 unit DAILY SC ; Start 02/03/19 at 09:00 Potassium Chloride/Dextrose/ Sod Cl 1,000 ml @ 40 mls/hr Q24H IV Last administered on 02/02/19at 14:37; Admin Dose 40 MLS/HR; Start 02/02/19 at 13:30 Assessment/Plan Assessment/Plan (Daily) IMP: 1. s/p Acute hypoxemic respiratory failure likely secondary to combination of volume overload and pneumonia 2. Encephalopathy underlying dementia versus toxic metabolic 3. Valvular heart disease 4. Severe dysphagia 5. Septic shock likely secondary to above 6. Anemia, no active GI bleeding 7. Skin diffuse excoriating skin lesion unclear etiology not consistent with history of "red man" syndrome. or pemphigus. 8. Anemia RECS: 1. Monitor respiratory status closely. Strict aspiration precautions 2. Continue broad-spectrum antibiotics 3. Infectious work-up as per ID 4. Monitor H&H 5. Palliative care consult appreciated 6. Replete K+ and Mg 7. Increase free H20 TINO PAL MD February 02, 2019 15:24
[2019-02-02] MEDS ORDERED: SOD CHLORIDE 0.9% 500 ML IV ONE (18:30)
--- NOTE | 2019-02-02 21:11 | CONS ---
Assessment/Plan Assessment/Plan Assessment/Plan (Daily) Interval hx: Tolerating tube feeds. No signs of GI bleeding. Levophed gtt. No abnormal EEG activity per RN. WBC 36 1. Severe anemia likely due to chronic disease, last work up while admitted to [facility] about a week ago was neg for GI bleeding, including EGD/colon which was done -s/p EGD and colonoscopy by Dr Verdin 01/09/19 which didn't find an obvious GI etiology to explain anemia. AVM or a small lesion could be missed due to poor prep. Pt likely needs capsule endoscopy -Neg fob, elevate retic, Low iron, tibc, [place] [id number] 2. Cystic lesion along pancreas body - 4.3 cm cystic lesion along the pancreas body, enlarged since 10/10/2012 (previously 2.4 cm). 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 -CEA wnl 3. Severe gastritis 4. Hemorrhoids 5. Hital hernia 6. A fib, -eliquis was stopped 01/06 during previous admission, on ASA 7. COPD 8. HTN 9. Hypothyroidism 10. Bilateral groin cellulitis 11. Rheumatoid arthritis. 12. Diabetes mellitus. 13. Peripheral vascular disease. 14. CHF 15. 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 Sepsis secondary to pneumonia 18. Leukocytosis secondary to Solu-Medrol 19 extensive psoriasis all over the body 20. 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 Plan: LP ordered per neuro, declined by the family Supportive ICU care Continue tube feeds, monitor residuals Pt will need outpatient EUS to evaluate pancreatic mass Recommend capsule endoscopy as outpatient Consultation Date/Type/Reason Admit Date/Time Jan 17, 2019 at 15:58 Initial Consult Date 01/18/19 Requesting Provider: IVAN AKHTAR MD Date/Time of Note DATE: 02/02/19 TIME: 21:11 24 HR Interval Summary Subjective hx not possible: pt non-verbal Exam/Review of Systems Exam Vitals Vital Signs Date Temp Pulse Resp B/P (MAP) Pulse Ox O2 O2 Flow FiO2 Time Delivery Rate 02/02/19 Nasal 2.0 20:24 Cannula 02/02/19 83 20 131/72 100 20:10 (91) 02/02/19 94.3 19:33 02/02/19 27 01:47 Intake and Output 02/01/19 02/01/1902/02/19 1515:00 23:00 07:00 IntakeIntake Total 580 ml 870 ml 480 ml OutputOutput Total 1120 ml 1435 ml 1060 ml BalanceBalance -540 ml -565 ml -580 ml Constitutional: alert, oriented, well developed Psych: no complaints, nl mood/affect Head: normocephalic, atraumatic Eyes: nl conjunctiva, EOMI, nl lids, nl sclera, PERRL ENMT: nl external ears & nose, nl lips & teeth, nl nasal mucosa & septum Neck: supple, non-tender Respiratory: clear to auscultation, normal air movement Cardiovascular: regular rate and rhythm, nl pulses Gastrointestinal: soft, nl liver, spleen, non-tender Musculoskeletal: nl extremities to inspection, nl gait and stance Extremities: normal pulses Neurological: 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, nl mental status, nl speech, nl strength Skin: nl turgor; No rash or lesions Lymph: nl lymph nodes Results Result Diagram: 02/02/1952302/02/19523 Results 24hrs Laboratory Tests Test 02/01/19 22:09 02/02/19 01:26 02/02/19 05:00 02/02/19 05:19 Bedside Glucose 179 128 112 Blood Gas Blood arterial Specimen Source Arterial Blood 02/02/2019 4:46:5 Date Drawn 1 AM Arterial Blood pH 7.504 H (Temp corrected) Arterial Blood 39.3 pCO2 (Temp correct) Arterial Blood 80.3 pO2 (Temp corrected) Arterial Blood 30.2 H HCO3 Arterial Blood 6.6 H Base Excess Arterial Blood 95.8 Oxygen Saturation Manuel Test ACCEPTAB Arterial Blood Right Radial Gas Puncture Site Arterial 0.3 Blood Carboxyhemo globin Arterial Blood 0.4 Methemoglobin Blood Gas A-a O2 65.7 H Differential Oxyhemoglobin 95.1 Percent Blood Gas 37.0 Temperature Blood Gas NASAL CANNULA Modality FiO2 27.0 Blood Gas LW Notified Whom Blood Gas 02/02/2019 4:57:3 Notified Time 0 AM Test 02/02/19 05:24 02/02/19 08:08 02/02/19 13:18 02/02/19 17:14 White Blood Count 32.6 H Red Blood Count 2.91 L Hemoglobin 8.4 L Hematocrit 25.7 L Mean Corpuscular 88.3 Volume Mean Corpuscular 28.9 L Hemoglobin Mean Corpuscular 32.7 Hemoglobin Concen t Red Cell 18.6 H Distribution Width Platelet Count 137 L Mean Platelet 11.9 H Volume Immature 3.500 H Granulocytes % Neutrophils % Segmented 88 H Neutrophils % (Manual) Band Neutrophils 4 % (Manual) Lymphocytes % Lymphocytes % 4 L (Manual) Monocytes % Monocytes % 3 (Manual) Eosinophils % Basophils % Myelocytes % 1 H (Manual) Nucleated Red 3 H Blood Cells % Immature 1.140 H Granulocytes # Neutrophils # Neutrophils # 29.1 H (Manual) Band Neutrophils 1.3 H # Lymphocytes 1.3 (Manual) Lymphocytes # Monocytes # Monocytes # 0.9 (Manual) Eosinophils # Basophils # Myelocytes # 0.3 H Nucleated Red Blood Cells # Platelet Estimate DECREASED Giant Platelets 4 H Poikilocytosis 3+ Anisocytosis 3+ Macrocytosis 3+ Target Cells 1+ Sodium Level 156 H Potassium Level 3.0 L Chloride Level 117 H Carbon Dioxide 36 H Level Anion Gap 3 L Blood Urea 64 H Nitrogen Creatinine 1.43 H Est Glomerular Filtrat Rate mL/min Glucose Level 98 Lactic Acid Level 2.5 *H Calcium Level 7.5 L Bedside Glucose 88 140 130 Medications Medication Current Medications Lactulose (Enulose) 20 gm DAILY PRN PO CONSTIPATION; Start 01/17/19 at 18:17 Acetaminophen (Tylenol Tab) 650 mg Q4H PRN PO PAIN Last administered on 01/23/19at 22:48; Admin Dose 650 MG; Start 01/17/19 at 18:17 Miscellaneous Information (Pending [facility] Order For Wound Care) This patient ramirez... PRN PRN XX WOUND CARE; Start 01/17/19 at 18:17 Albuterol/ Ipratropium (Duoneb) 3 ml Q2H RESP THERAPY PRN HHN SHORTNESS OF BREATH; Start 01/17/19 at 18:17 Bisacodyl (Dulcolax) 10 mg BID PRN PO CONSTIPATION; Start 01/17/19 at 18:17; Status Hold Folic Acid (Folic Acid) 1 mg DAILY PO Last administered on 02/02/19at 08:43; Admin Dose 1 MG; Start 01/17/19 at 18:17 Latanoprost (Xalatan) 1 drop HS BOTH EYES Last administered on 02/01/19at 20:09; Admin Dose 1 DROP; Start 01/17/19 at 18:17 Nitroglycerin (Nitroglycerin (Sl Tab) 0.4 Mg) 0.4 tab Q5M PRN SL CHEST PAIN; Start 01/17/19 at 18:17 Nystatin (Nystatin Powder) 1 applic BID TOP Last administered on 02/02/19 08: 45; Admin Dose 1 APPLIC; Start 01/17/19 at 18:17 IV Flush (NS 3 ml) 3 ml PER PROTOCOL IV ; Start 01/17/19 at 18:17 Miscellaneous Information 1 ea NOTE XX ; Start 01/17/19 at 18:17 Glucose (Glutose) 15 gm Q15M PRN PO DECREASED GLUCOSE; Start 01/17/19 at 18:17 Glucose (Glutose) 22.5 gm Q15M PRN PO DECREASED GLUCOSE; Start 01/17/19 at 18:17 Dextrose (D50w Syringe) 25 ml Q15M PRN IV DECREASED GLUCOSE; Start 01/17/19 at 18:17 Dextrose (D50w Syringe) 50 ml Q15M PRN IV DECREASED GLUCOSE; Start 01/17/19 at 18:17 Glucagon (Glucagen) 1 mg Q15M PRN IM DECREASED GLUCOSE; Start 01/17/19 at 18:17 Glucose (Glutose) 15 gm Q15M PRN BUCCAL DECREASED GLUCOSE; Start 01/17/19 at 18:17 Zinc Sulfate (Zinc Sulfate) 220 mg DAILY PO Last administered on 02/02/19 08:43; Admin Dose 220 MG; Start 01/17/19 at 18:17 Ascorbic Acid (Vitamin C) 250 mg DAILY PO Last administered on 02/02/19 08:44; Admin Dose 250 MG; Start 01/17/19 at 18:17 Multi-Ingredient Ointment (Aquaphor Oint 52.5 Gm) 1 applic BID TOP Last administered on 02/02/19 08:45; Admin Dose 1 APPLIC; Start 01/17/19 at 18:17 Bisacodyl (Dulcolax Supp) 10 mg DAILY PRN [place] CONSTIPATION; Start 01/17/19 at 18:17 Zinc Acetate/ Diphenhydramine (Benadryl 2% Cr) 1 applic Q6H PRN TOP ITCHING Last administered on 01/26/19 07:54; Admin Dose 1 APPLIC; Start 01/19/19 at 16:37 IV Flush (NS 10 ml) 10 ml PRN PRN IV IV PROTOCOL; Start 01/20/19 at 14:30 Cyanocobalamin (Vitamin B12 Inj) 1,000 mcg Q7D IM ; Start 02/03/19 at 09:00 Metoprolol Tartrate (Lopressor) 5 mg Q4H PRN IV HR>110 Hold SBP<100; Start 01/26/19 at 14:30 Furosemide (Lasix) 40 mg BID DIURETICS IV Last administered on 02/02/19 17:13; Admin Dose 40 MG; Start 01/27/19 at 18:00 Vancomycin HCl (Vanco Iv Per Pharmacy) VANCOMYCIN PER PHARMACY PER PROTOCOL XX ; Start 01/27/19 at 12:00 Enoxaparin Sodium (Lovenox) 60 mg DAILY SC Last administered on 02/02/19 08:54; Admin Dose 60 MG; Start 01/28/19 at 09:00 Lorazepam (Ativan) 1 mg Q2 PRN IV SEIZURES Last administered on 02/02/19 09:18; Admin Dose 1 MG; Start 01/27/19 at 14:00 Aztreonam 50 ml @ 100 mls/hr Q12 IVPB Last administered on 02/02/19 09:06; Admin Dose 100 MLS/HR; Start 01/27/19 at 16:30 Metronidazole 100 ml @ 100 mls/hr Q8 IVPB Last administered on 02/02/19 13:20; Admin Dose 100 MLS/HR; Start 01/27/19 at 15:00 Atorvastatin Calcium (Lipitor) 40 mg QHS NGT Last administered on 02/01/19 20:08; Admin Dose 40 MG; Start 01/28/19 at 21:00 Docusate Sodium (Colace Liquid Cup) 100 mg BID NGT ; Start 01/27/19 at 22:00; Status Hold Terazosin HCl (Hytrin) 10 mg HS NGT Last administered on 02/01/19 20:08; Admin Dose 10 MG; Start 01/28/19 at 21:00 Levetiracetam 100 ml @ 400 mls/hr Q12 IVPB Last administered on 02/02/19 09 :06; Admin Dose 400 MLS/HR; Start 01/28/19 at 09:00 Levothyroxine Sodium (Synthroid) 125 mcg BEFORE BREAKFAST NGT Last administered on 02/02/19 08:43; Admin Dose 125 MCG; Start 01/28/19 at 07:00 Ferrous Sulfate (Feosol Liquid Cup) 300 mg WITH MEALS GTB Last administered on 02/02/19 17:13; Admin Dose 300 MG; Start 01/28/19 at 11:30 Multivitamins (Multivitamin) 30 ml DAILY GTB Last administered on 02/02/19 08:42; Admin Dose 30 ML; Start 01/28/19 at 11:00 Lansoprazole (Prevacid) 30 mg DAILY@06 NGT Last administered on 02/02/19 05:43; Admin Dose 30 MG; Start 01/28/19 at 11:00 Diagnostic Test (Pha) (Accu-Chek) 1 ea Q4 XX Last administered on 02/02/19 17:16; Admin Dose 1 EA; Start 01/28/19 at 13:00 Nystatin/ Triamcinolone Acetonide (Mycolog Oint) 1 applic BID TOP Last administered on 02/02/19 08:46; Admin Dose 1 APPLIC; Start 01/28/19 at 22:30 Insulin Aspart (Novolog Insulin Pen) NOVOLOG *MILD* ALGORI... Q4 SC Last administered on 02/01/19 20:14; Admin Dose 2 UNIT; Start 01/29/19 at 05:00 Albuterol/ Ipratropium (Duoneb) 3 ml Q6HWA RESP THERAPY HHN Last administered on 02/02/19 13:56; Admin Dose 3 ML; Start 01/29/19 at 14:00 Epoetin Dae-epbx (RETACRIT(non-esrd)) 40,000 unit Mo@1700 SC ; Start 02/03/19 at 17:00 Mupirocin (Bactroban) 1 applic BID TOP Last administered on 02/02/19 08:45; Admin Dose 1 APPLIC; Start 01/30/19 at 15:26; Stop 02/09/19 at 15:25 Vancomycin HCl 250 ml @ 125 mls/hr Q48H IVPB Last administered on 02/02/19 10:58; Admin Dose 125 MLS/HR; Start 01/31/19 at 11:00 Tobramycin Sulfate/Sodium Chloride (Nilesh Inhal) 300 mg BID RESP THERAPY NEB Last administered on 02/02/19at 07:49; Admin Dose 300 MG; Start 01/30/19 at 20:00 Insulin Glargine (Lantus) 10 units DAILY@2000 SC Last administered on 02/01/19at 20:15; Admin Dose 10 UNITS; Start 01/31/19 at 20:00 Potassium Chloride (Potassium Chloride Pwd/Soln) 20 meq TID NGT Last administered on 02/02/19at 13:21; Admin Dose 20 MEQ; Start 02/02/19 at 09:00 Methylprednisolone Sodium Succinate (Solu-Medrol) 40 mg DAILY IV ; Start 02/03/19 at 09:00 Insulin Human NPH (Humulin N) 3 unit DAILY SC ; Start 02/03/19 at 09:00 Potassium Chloride/Dextrose/ Sod Cl 1,000 ml @ 40 mls/hr Q24H IV Last administered on 02/02/19at 14:37; Admin Dose 40 MLS/HR; Start 02/02/19 at 13:30 MICHELLE VERDIN MD February 02, 2019 21:11
[2019-02-02] MEDS: TERAZOSIN 5 MG CAP NGT SCH (21:26)
[2019-02-02] MEDS: LATANOPROST 0.005% 2.5 ML OPH BOTH EYES SCH (21:27)
[2019-02-02] MEDS: ATORVASTATIN 40 MG TAB NGT SCH (21:27)
[2019-02-02] MEDS: INSULIN GLARGINE [LANTus] (100 UNITS/ML) SYG SC SCH (21:31)
[2019-02-03] VITALS (19 sets, daily range): BP systolic 107–142; BP diastolic 45–94; PULSE 88–108; RESP 15–30
[2019-02-03] MEDS: INSULIN ASPART [NOVOLOG] 3 ML PEN SC SCH ×6 (01:00→20:39)
[2019-02-03] MEDS: ACCU-CHEK XX SCH ×6 (01:00→20:36)
[2019-02-03] MEDS: metroNIDAZOLE 500 MG/NS (PMX) 100 ML IVPB SCH ×3 (05:53→21:54)
[2019-02-03] MEDS: LANSOPRAZOLE 30 MG CAP NGT SCH (05:53)
[2019-02-03] MEDS: FUROSEMIDE 40 MG INJ IV SCH (05:54)
[2019-02-03] MEDS: LEVOTHYROXINE 125 MCG TAB NGT SCH (06:00)
--- NOTE | 2019-02-03 07:12 | CONS ---
Assessment/Plan Assessment/Plan Hospital Course (Demo Recall) 88 yo male presents from [facility] for SOB and febrile Interval hx: Transferred back to ICU for hypothermia. Stable with warming blanket. Tolerating tube feeds. No signs of GI bleeding. Soft/liquid stools. 1. Severe anemia likely due to chronic disease, last work up while admitted to [facility] about a week ago was neg for GI bleeding, including EGD/colon which was done -s/p EGD and colonoscopy by Dr Frost 01/09/19 which didn't find an obvious GI etiology to explain anemia. AVM or a small lesion could be missed due to poor prep. Pt likely needs capsule endoscopy -Neg fob, elevate retic, Low iron, tibc, [place] [id number] 2. Cystic lesion along pancreas body - 4.3 cm cystic lesion along the pancreas body, enlarged since 10/10/2012 (previously 2.4 cm). 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 -CEA wnl 3. Severe gastritis 4. Hemorrhoids 5. Hital hernia 6. A fib, -eliquis was stopped 01/06 during previous admission, on ASA 7. COPD 8. HTN 9. Hypothyroidism 10. Bilateral groin cellulitis 11. Rheumatoid arthritis. 12. Diabetes mellitus. 13. Peripheral vascular disease. 14. CHF 15. 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 Sepsis secondary to pneumonia 18. Encephalopathy secondary to sepsis 19. Hypothermia 20. Coagulopathy -INR 1.77 Plan: Supportive ICU care Continue tube feeds, monitor residuals Pt will need outpatient EUS to evaluate pancreatic mass Recommend capsule endoscopy as outpatient Pt examined and plan of care discussed with Dr. Frost Consultation Date/Type/Reason Admit Date/Time Jan 17, 2019 at 15:58 Initial Consult Date 01/18/19 Requesting Provider: IVAN AKHTAR MD Date/Time of Note DATE: 02/03/19 TIME: 07:10 Exam/Review of Systems Exam Vitals Vital Signs Date Temp Pulse Resp B/P (MAP) Pulse Ox O2 O2 Flow FiO2 Time Delivery Rate 02/03/19 99 22 107/92 99 Nasal 2.0 06:00 (97) Cannula 02/03/19 97.5 04:00 02/03/19 27 03:00 Intake and Output 02/02/19 02/02/19 02/03/19 1515:00 23:00 07:00 IntakeIntake Total 400 ml 1610 ml 860 ml OutputOutput Total 2250 ml 230 ml BalanceBalance 400 ml -640 ml 630 ml Constitutional: alert Psych: no complaints Head: normocephalic Eyes: PERRL Respiratory: diminished breath sounds Cardiovascular: regular rate and rhythm Gastrointestinal: soft, non-tender Neurological: lethargic Results Result Diagram: 02/03/19 0500 02/03/19 0500 Results 24hrs Laboratory Tests Test 02/02/19 08:08 02/02/19 13:18 02/02/19 17:14 02/02/19 21:26 Bedside Glucose 88 140 130 126 Test 02/03/19 01:03 02/03/19 04:48 02/03/19 05:00 Bedside Glucose 120 97 White Blood Count 36.2 H Red Blood Count 2.73 L Hemoglobin 7.9 L Hematocrit 24.5 L Mean Corpuscular 89.7 Volume Mean Corpuscular 28.9 L Hemoglobin Mean Corpuscular 32.2 Hemoglobin Concent Red Cell 18.4 H Distribution Width Platelet Count 122 L Mean Platelet Volume 12.7 H Immature 3.200 H Granulocytes % Neutrophils % Lymphocytes % Monocytes % Eosinophils % Basophils % Nucleated Red Blood 2.7 H Cells % Immature 1.140 H Granulocytes # Neutrophils # Lymphocytes # Monocytes # Eosinophils # Basophils # Nucleated Red Blood Cells # Sodium Level 160 H Potassium Level 3.0 L Chloride Level 121 H Carbon Dioxide Level 35 H Anion Gap 4 L Blood Urea Nitrogen 67 H Creatinine 1.40 H Est Glomerular Filtrat Rate mL/min Glucose Level 71 Calcium Level 7.4 L Medications Medication Current Medications Lactulose (Enulose) 20 gm DAILY PRN PO CONSTIPATION; Start 01/17/19 at 18:17 Acetaminophen (Tylenol Tab) 650 mg Q4H PRN PO PAIN Last administered on 01/23at 22:48; Admin Dose 650 MG; Start 01/17/19 at 18:17 Miscellaneous Information (Pending [facility] For [facility] Care) This patient ramirez... PRN PRN XX WOUND CARE; Start 01/17/19 at 18:17 Albuterol/ Ipratropium (Duoneb) 3 ml Q2H RESP THERAPY PRN HHN SHORTNESS OF BREATH; Start 01/17/19 at 18:17 Bisacodyl (Dulcolax) 10 mg BID PRN PO CONSTIPATION; Start 01/17/19 at 18:17; Status Hold Folic Acid (Folic Acid) 1 mg DAILY PO Last administered on 02/02/19 08:43; Admin Dose 1 MG; Start 01/17/19 at 18:17 Latanoprost (Xalatan) 1 drop HS BOTH EYES Last administered on 02/02/19 21:27; Admin Dose 1 DROP; Start 01/17/19 at 18:17 Nitroglycerin (Nitroglycerin (Sl Tab) 0.4 Mg) 0.4 tab Q5M PRN SL CHEST PAIN; Start 01/17/19 at 18:17 Nystatin (Nystatin Powder) 1 applic BID TOP Last administered on 02/02/19 21:28; Admin Dose 1 APPLIC; Start 01/17/19 at 18:17 IV Flush (NS 3 ml) 3 ml PER PROTOCOL IV ; Start 01/17/19 at 18:17 Miscellaneous Information 1 ea NOTE XX ; Start 01/17/19 at 18:17 Glucose (Glutose) 15 gm Q15M PRN PO DECREASED GLUCOSE; Start 01/17/19 at 18:17 Glucose (Glutose) 22.5 gm Q15M PRN PO DECREASED GLUCOSE; Start 01/17/19 at 18:17 Dextrose (D50w Syringe) 25 ml Q15M PRN IV DECREASED GLUCOSE; Start 01/17/19 at 18:17 Dextrose (D50w Syringe) 50 ml Q15M PRN IV DECREASED GLUCOSE; Start 01/17/19 at 18:17 Glucagon (Glucagen) 1 mg Q15M PRN IM DECREASED GLUCOSE; Start 01/17/19 at 18:17 Glucose (Glutose) 15 gm Q15M PRN BUCCAL DECREASED GLUCOSE; Start 01/17/19 at 18:17 Zinc Sulfate (Zinc Sulfate) 220 mg DAILY PO Last administered on 02/02/19 08:43; Admin Dose 220 MG; Start 01/17/19 at 18:17 Ascorbic Acid (Vitamin C) 250 mg DAILY PO Last administered on 02/02/19 08:44; Admin Dose 250 MG; Start 01/17/19 at 18:17 Multi-Ingredient Ointment (Aquaphor Oint 52.5 Gm) 1 applic BID TOP Last administered on 02/02/19 21:28; Admin Dose 1 APPLIC; Start 01/17/19 at 18:17 Bisacodyl (Dulcolax Supp) 10 mg DAILY PRN [place] CONSTIPATION; Start 01/17/19 at 18:17 Zinc Acetate/ Diphenhydramine (Benadryl 2% Cr) 1 applic Q6H PRN TOP ITCHING Last administered on 01/26/19 07:54; Admin Dose 1 APPLIC; Start 01/19/19 at 16:37 IV Flush (NS 10 ml) 10 ml PRN PRN IV IV PROTOCOL; Start 01/20/19 at 14:30 Cyanocobalamin (Vitamin B12 Inj) 1,000 mcg Q7D IM ; Start 02/03/19 at 09:00 Metoprolol Tartrate (Lopressor) 5 mg Q4H PRN IV HR>110 Hold SBP<100; Start 01/26/19 at 14:30 Furosemide (Lasix) 40 mg BID DIURETICS IV Last administered on 02/03/19at 05:54; Admin Dose 40 MG; Start 01/27/19 at 18:00 Vancomycin HCl (Vanco Iv Per Pharmacy) VANCOMYCIN PER PHARMACY PER PROTOCOL XX ; Start 01/27/19 at 12:00 Enoxaparin Sodium (Lovenox) 60 mg DAILY SC Last administered on 02/02/19 08:54; Admin Dose 60 MG; Start 01/28/19 at 09:00 Lorazepam (Ativan) 1 mg Q2 PRN IV SEIZURES Last administered on 02/02/19 09:18; Admin Dose 1 MG; Start 01/27/19 at 14:00 Aztreonam 50 ml @ 100 mls/hr Q12 IVPB Last administered on 02/02/19 21:27; Admin Dose 100 MLS/HR; Start 01/27/19 at 16:30 Metronidazole 100 ml @ 100 mls/hr Q8 IVPB Last administered on 02/03/19 05:53; Admin Dose 100 MLS/HR; Start 01/27/19 at 15:00 Atorvastatin Calcium (Lipitor) 40 mg QHS NGT Last administered on 02/02/19 21:27; Admin Dose 40 MG; Start 01/28/19 at 21:00 Docusate Sodium (Colace Liquid Cup) 100 mg BID NGT ; Start 01/27/19 at 22:00; Status Hold Terazosin HCl (Hytrin) 10 mg HS NGT Last administered on 02/02/19 21:26; Admin Dose 10 MG; Start 01/28/19 at 21:00 Levetiracetam 100 ml @ 400 mls/hr Q12 IVPB Last administered on 02/02/19 21:29; Admin Dose 400 MLS/HR; Start 01/28/19 at 09:00 Levothyroxine Sodium (Synthroid) 125 mcg BEFORE BREAKFAST NGT Last administered on 02/03/19 06:00; Admin Dose 125 MCG; Start 01/28/19 at 07:00 Ferrous Sulfate (Feosol Liquid Cup) 300 mg WITH MEALS GTB Last administered on 02/02/19 17:13; Admin Dose 300 MG; Start 01/28/19 at 11:30 Multivitamins (Multivitamin) 30 ml DAILY GTB Last administered on 02/02/19 08:42; Admin Dose 30 ML; Start 01/28/19 at 11:00 Lansoprazole (Prevacid) 30 mg DAILY@06 NGT Last administered on 02/03/19 05:53; Admin Dose 30 MG; Start 01/28/19 at 11:00 Diagnostic Test (Pha) (Accu-Chek) 1 ea Q4 XX Last administered on 02/02/19 17:16; Admin Dose 1 EA; Start 01/28/19 at 13:00 Nystatin/ Triamcinolone Acetonide (Mycolog Oint) 1 applic BID TOP Last administered on 02/02/19 21:28; Admin Dose 1 APPLIC; Start 01/28/19 at 22:30 Insulin Aspart (Novolog Insulin Pen) NOVOLOG *MILD* ALGORI... Q4 SC Last administered on 02/01/19 20:14; Admin Dose 2 UNIT; Start 01/29/19 at 05:00 Albuterol/ Ipratropium (Duoneb) 3 ml Q6HWA RESP THERAPY HHN Last administered on 02/02/19 21:18; Admin Dose 3 ML; Start 01/29/19 at 14:00 Epoetin Dae-epbx (RETACRIT(non-esrd)) 40,000 unit Mo@1700 SC ; Start 02/03/19 at 17:00 Mupirocin (Bactroban) 1 applic BID TOP Last administered on 02/02/19 21:28; Admin Dose 1 APPLIC; Start 01/30/19 at 15:26; Stop 02/09/19 at 15:25 Vancomycin HCl 250 ml @ 125 mls/hr Q48H IVPB Last administered on 02/02/19 10:58; Admin Dose 125 MLS/HR; Start 01/31/19 at 11:00 Tobramycin Sulfate/Sodium Chloride (Nilesh Inhal) 300 mg BID RESP THERAPY NEB L ast administered on 02/02/19 07:49; Admin Dose 300 MG; Start 01/30/19 at 20:00 Insulin Glargine (Lantus) 10 units DAILY@2000 SC Last administered on 02/02/19 21:31; Admin Dose 10 UNITS; Start 01/31/19 at 20:00 Potassium Chloride (Potassium Chloride Pwd/Soln) 20 meq TID NGT Last administered on 02/02/19 21:27; Admin Dose 20 MEQ; Start 02/02/19 at 09:00 Methylprednisolone Sodium Succinate (Solu-Medrol) 40 mg DAILY IV ; Start 02/03/19 at 09:00 Insulin Human NPH (Humulin N) 3 unit DAILY SC ; Start 02/03/19 at 09:00 Potassium Chloride/Dextrose/ Sod Cl 1,000 ml @ 40 mls/hr Q24H IV Last adminis tered on 02/02/19 14:37; Admin Dose 40 MLS/HR; Start 02/02/19 at 13:30 GISELLA VENTURA February 03, 2019 07:12
[2019-02-03] MEDS: FERROUS SULFATE 60 MG/ML 5ML CUP GTB SCH ×3 (07:28→18:10)
--- NOTE | 2019-02-03 07:41 | CONS ---
Assessment/Plan Assessment/Plan Assessment/Plan (Daily) Patient's daughter has continued to avoid me and does not want to consider changing his code status back to do not resuscitate. His overall prognosis is extremely poor, and he is unable to make any decisions on his own behalf. According to daughter patient said he wants to live as long as possible and to do everything to prolong his life Consultation Date/Type/Reason Admit Date/Time Jan 17, 2019 at 15:58 Initial Consult Date 01/18/19 Requesting Provider: IVAN AKHTAR MD Date/Time of Note DATE: 02/03/19 TIME: 07:38 24 HR Interval Summary Free Text/Dictation Patient is an 88-year-old gentleman in the intensive care unit at [facility]. Asked to see patient to speak to family members in palliative care consultation. Gentleman was admitted to the hospital on January 17, 2019 with a history of recent pneumonia sepsis syndrome past medical history of rheumatoid arthritis chronic obstructive pulmonary disease CABG x2. Patient is a former smoker has type 2 diabetes this information is taken from medical records. Also history of rheumatoid arthritis with joint involvement. According medical records patient had worsening anemia, prior to that he had been transfused during his hospitalization. Developed evidence of sepsis syndrome altered mental status was transferred to the intensive care unit lethargic fluid and electrolyte abnormalities. Other comorbid medical problems are congestive heart failure tricuspid regurgitation, acute and chronic renal failure, recurrent sepsis syndrome. Also with a history of chronic obstructive pulmonary disease., Patient is been placed on noninvasive positive pressure ventilation, broad-spectrum antibiotics have been initiated. He has been seen by multiple consultants. Generating patient has a low performance status, poor nutritional status according to medical records sepsis syndrome altered mental status, indicates an overall poor prognosis. Chest x-ray completed today shows increased bilateral interstitial and alveolar infiltrates concerning for edema multifocal pneumonia or pneumonitis. White blood cell count is 24,000, hemoglobin 8.1 hematocrit 25.3. Not participate all information taken from patient's medical records Exam/Review of Systems Exam Vitals Vital Signs Date Temp Pulse Resp B/P (MAP) Pulse Ox O2 O2 Flow FiO2 Time Delivery Rate 02/03/19 98.8 07:14 02/03/19 89 30 127/94 94 Nasal 2.0 07:00 (105) Cannula 02/03/19 27 03:00 Intake and Output 02/02/19 02/02/1919 1414:59 22:59 06:59 IntakeIntake Total 400 ml 1530 ml 940 ml OutputOutput Total 2125 ml 355 ml BalanceBalance 400 ml -595 ml 585 ml Results Result Diagram: 02/03/19 0500 02/03/19 0500 Results 24hrs Laboratory Tests Test 02/02/19 08:08 02/02/19 13:18 02/02/19 17:14 02/02/19 21:26 Bedside Glucose 88 140 130 126 Test 02/03/19 01:03 02/03/19 04:48 02/03/19 05:00 Bedside Glucose 120 97 White Blood Count 36.2 H Red Blood Count 2.73 L Hemoglobin 7.9 L Hematocrit 24.5 L Mean Corpuscular 89.7 Volume Mean Corpuscular 28.9 L Hemoglobin Mean Corpuscular 32.2 Hemoglobin Concent Red Cell 18.4 H Distribution Width Platelet Count 122 L Mean Platelet Volume 12.7 H Immature 3.200 H Granulocytes % Neutrophils % Lymphocytes % Monocytes % Eosinophils % Basophils % Nucleated Red Blood 2.7 H Cells % Immature 1.140 H Granulocytes # Neutrophils # Lymphocytes # Monocytes # Eosinophils # Basophils # Nucleated Red Blood Cells # Sodium Level 160 H Potassium Level 3.0 L Chloride Level 121 H Carbon Dioxide Level 35 H Anion Gap 4 L Blood Urea Nitrogen 67 H Creatinine 1.40 H Est Glomerular Filtrat Rate mL/min Glucose Level 71 Calcium Level 7.4 L Medications Medication Current Medications Lactulose (Enulose) 20 gm DAILY PRN PO CONSTIPATION; Start 01/17/19 at 18:17 Acetaminophen (Tylenol Tab) 650 mg Q4H PRN PO PAIN Last administered on 01/23/19at 22:48; Admin Dose 650 MG; Start 01/17/19 at 18:17 Miscellaneous Information (Pending Santyl Order For Wound Care) This patient ramirez... PRN PRN XX WOUND CARE; Start 01/17/19 at 18:17 Albuterol/ Ipratropium (Duoneb) 3 ml Q2H RESP THERAPY PRN HHN SHORTNESS OF BREATH; Start 01/17/19 at 18:17 Bisacodyl (Dulcolax) 10 mg BID PRN PO CONSTIPATION; Start 01/17/19 at 18:17; Status Hold Folic Acid (Folic Acid) 1 mg DAILY PO Last administered on 02/02/19 08:43; Admin Dose 1 MG; Start 01/17/19 at 18:17 Latanoprost (Xalatan) 1 drop HS BOTH EYES Last administered on 02/02/19 21:27; Admin Dose 1 DROP; Start 01/17/19 at 18:17 Nitroglycerin (Nitroglycerin (Sl Tab) 0.4 Mg) 0.4 tab Q5M PRN SL CHEST PAIN; Start 01/17/19 at 18:17 Nystatin (Nystatin Powder) 1 applic BID TOP Last administered on 02/02/19 21:28; Admin Dose 1 APPLIC; Start 01/17/19 at 18:17 IV Flush (NS 3 ml) 3 ml PER PROTOCOL IV ; Start 01/17/19 at 18:17 Miscellaneous Information 1 ea NOTE XX ; Start 01/17/19 at 18:17 Glucose (Glutose) 15 gm Q15M PRN PO DECREASED GLUCOSE; Start 01/17/19 at 18:17 Glucose (Glutose) 22.5 gm Q15M PRN PO DECREASED GLUCOSE; Start 01/17/19 at 18:17 Dextrose (D50w Syringe) 25 ml Q15M PRN IV DECREASED GLUCOSE; Start 01/17/19 at 18:17 Dextrose (D50w Syringe) 50 ml Q15M PRN IV DECREASED GLUCOSE; Start 01/17/19 at 18:17 Glucagon (Glucagen) 1 mg Q15M PRN IM DECREASED GLUCOSE; Start 01/17/19 at 18:17 Glucose (Glutose) 15 gm Q15M PRN BUCCAL DECREASED GLUCOSE; Start 01/17/19 at 18:17 Zinc Sulfate (Zinc Sulfate) 220 mg DAILY PO Last administered on 02/02/19 08:43; Admin Dose 220 MG; Start 01/17/19 at 18:17 Ascorbic Acid (Vitamin C) 250 mg DAILY PO Last administered on 02/02/19 08:44; Admin Dose 250 MG; Start 01/17/19 at 18:17 Multi-Ingredient Ointment (Aquaphor Oint 52.5 Gm) 1 applic BID TOP Last administered on 02/02/19 21:28; Admin Dose 1 APPLIC; Start 01/17/19 at 18:17 Bisacodyl (Dulcolax Supp) 10 mg DAILY PRN [place] CONSTIPATION; Start 01/17/19 at 18:17 Zinc Acetate/ Diphenhydramine (Benadryl 2% Cr) 1 applic Q6H PRN TOP ITCHING Last administered on 01/26/19 07:54; Admin Dose 1 APPLIC; Start 01/19/19 at 16:37 IV Flush (NS 10 ml) 10 ml PRN PRN IV IV PROTOCOL; Start 01/20/19 at 14:30 Cyanocobalamin (Vitamin B12 Inj) 1,000 mcg Q7D IM ; Start 02/03/19 at 09:00 Metoprolol Tartrate (Lopressor) 5 mg Q4H PRN IV HR>110 Hold SBP<100; Start 01/26/19 at 14:30 Furosemide (Lasix) 40 mg BID DIURETICS IV Last administered on 02/03/19 05:54; Admin Dose 40 MG; Start 01/27/19 at 18:00 Vancomycin HCl (Vanco Iv Per Pharmacy) VANCOMYCIN PER PHARMACY PER PROTOCOL XX ; Start 01/27/19 at 12:00 Enoxaparin Sodium (Lovenox) 60 mg DAILY SC Last administered on 02/02/19 08:5 4; Admin Dose 60 MG; Start 01/28/19 at 09:00 Lorazepam (Ativan) 1 mg Q2 PRN IV SEIZURES Last administered on 02/02/19 09:18; Admin Dose 1 MG; Start 01/27/19 at 14:00 Aztreonam 50 ml @ 100 mls/hr Q12 IVPB Last administered on 02/02/19 21:27; Admin Dose 100 MLS/HR; Start 01/27/19 at 16:30 Metronidazole 100 ml @ 100 mls/hr Q8 IVPB Last administered on 02/03/19 05:53; Admin Dose 100 MLS/HR; Start 01/27/19 at 15:00 Atorvastatin Calcium (Lipitor) 40 mg QHS NGT Last administered on 02/02/19 21:27; Admin Dose 40 MG; Start 01/28/19 at 21:00 Docusate Sodium (Colace Liquid Cup) 100 mg BID NGT ; Start 01/27/19 at 22:00; Status Hold Terazosin HCl (Hytrin) 10 mg HS NGT Last administered on 02/02/19 21:26; Admin Dose 10 MG; Start 01/28/19 at 21:00 Levetiracetam 100 ml @ 400 mls/hr Q12 IVPB Last administered on 02/02/19 21:29; Admin Dose 400 MLS/HR; Start 01/28/19 at 09:00 Levothyroxine Sodium (Synthroid) 125 mcg BEFORE BREAKFAST NGT Last administered on 02/03/19 06:00; Admin Dose 125 MCG; Start 01/28/19 at 07:00 Ferrous Sulfate (Feosol Liquid Cup) 300 mg WITH MEALS GTB Last administered on 02/03/19 07:28; Admin Dose 300 MG; Start 01/28/19 at 11:30 Multivitamins (Multivitamin) 30 ml DAILY GTB Last administered on 02/02/19 08:42; Admin Dose 30 ML; Start 01/28/19 at 11:00 Lansoprazole (Prevacid) 30 mg DAILY@06 NGT Last administered on 02/03/19 05:53; Admin Dose 30 MG; Start 01/28/19 at 11:00 Diagnostic Test (Pha) (Accu-Chek) 1 ea Q4 XX Last administered on 02/02/19 17:16; Admin Dose 1 EA; Start 01/28/19 at 13:00 Nystatin/ Triamcinolone Acetonide (Mycolog Oint) 1 applic BID TOP Last administered on 02/02/19 21:28; Admin Dose 1 APPLIC; Start 01/28/19 at 22:30 Insulin Aspart (Novolog Insulin Pen) NOVOLOG *MILD* ALGORI... Q4 SC Last administered on 02/01/19 20:14; Admin Dose 2 UNIT; Start 01/29/19 at 05:00 Albuterol/ Ipratropium (Duoneb) 3 ml Q6HWA RESP THERAPY HHN Last administered on 02/02/19 21:18; Admin Dose 3 ML; Start 01/29/19 at 14:00 Epoetin Dae-epbx (RETACRIT(non-esrd)) 40,000 unit Mo@1700 SC ; Start 02/03/19 at 17:00 Mupirocin (Bactroban) 1 applic BID TOP Last administered on 02/02/19 21:28; Admin Dose 1 APPLIC; Start 01/30/19 at 15:26; Stop 5/19/19 at 15:25 Vancomycin HCl 250 ml @ 125 mls/hr Q48H IVPB Last administered on 02/02/19 10:58; Admin Dose 125 MLS/HR; Start 01/31/19 at 11:00 Tobramycin Sulfate/Sodium Chloride (Nilesh Inhal) 300 mg BID RESP THERAPY NEB Last administered on 02/02/19 07:49; Admin Dose 300 MG; Start 01/30/19 at 20:00 Insulin Glargine (Lantus) 10 units DAILY@2000 SC Last administered on 02/02/19 21:31; Admin Dose 10 UNITS; Start 01/31/19 at 20:00 Potassium Chloride (Potassium Chloride Pwd/Soln) 20 meq TID NGT Last administered on 02/02/19at 21:27; Admin Dose 20 MEQ; Start 02/02/19 at 09:00 Methylprednisolone Sodium Succinate (Solu-Medrol) 40 mg DAILY IV ; Start 02/03/19 at 09:00 Insulin Human NPH (Humulin N) 3 unit DAILY SC ; Start 02/03/19 at 09:00 Potassium Chloride/Dextrose/ Sod Cl 1,000 ml @ 40 mls/hr Q24H IV Last administered on 02/02/19at 14:37; Admin Dose 40 MLS/HR; Start 02/02/19 at 13:30 MARGARITO WILSON February 03, 2019 07:41
--- NOTE | 2019-02-03 07:54 | CONS ---
Consult Date/Type/Reason Admit Date/Time Jan 17, 2019 at 15:58 Initial Consult Date Type of Consultation: Pulm/CCM Requesting Provider: IVAN AKHTAR MD Date/Time of Note DATE: 02/03/19 TIME: 07:50 Subjective Pt now in ICU - tachycardic/ agitated - BP stable - no obvious CP now. Transferred for hypothermia. Per nurse: No F//N/V temp up now. Objective Vitals Vital Signs Date Temp Pulse Resp B/P (MAP) Pulse Ox O2 O2 Flow FiO2 Time Delivery Rate 02/03/19 98.8 07:14 02/03/19 89 30 127/94 94 Nasal 2.0 07:00 (105) Cannula 02/03/19 27 03:00 Intake and Output 02/02/19 02/02/19 02/03/19 1515:00 23:00 07:00 IntakeIntake Total 400 ml 1610 ml 960 ml OutputOutput Total 2250 ml 405 ml BalanceBalance 400 ml -640 ml 555 ml Exam General: WN/WD/NAD, AOx 0 HEENT: Unicetric/atraumatic/EOMI (does not follow commands) NECK: JVD elevated, no thyromegaly Lymph: no lymphadenopathy HEART: regular with no S3, II/ systolic murmur at apex, PMI L LUNGS: Coarse sounds ABD: soft, NT, ND, +BS : Intact Neuro: non focal SKIN: chronic changes - desquamation EXT: trace edema Results/Medications Result Diagram: 02/03/19 0500 02/03/19 0500 Results 24 hrs Laboratory Tests Test 02/02/19 08:08 02/02/19 13:18 02/02/19 17:14 02/02/19 21:26 Bedside Glucose 88 140 130 126 Test 02/03/19 01:03 02/03/19 04:48 02/03/19 05:00 Bedside Glucose 120 97 White Blood Count 36.2 H Red Blood Count 2.73 L Hemoglobin 7.9 L Hematocrit 24.5 L Mean Corpuscular 89.7 Volume Mean Corpuscular 28.9 L Hemoglobin Mean Corpuscular 32.2 Hemoglobin Concent Red Cell 18.4 H Distribution Width Platelet Count 122 L Mean Platelet Volume 12.7 H Immature 3.200 H Granulocytes % Neutrophils % Lymphocytes % Monocytes % Eosinophils % Basophils % Nucleated Red Blood 2.7 H Cells % Immature 1.140 H Granulocytes # Neutrophils # Lymphocytes # Monocytes # Eosinophils # Basophils # Nucleated Red Blood Cells # Sodium Level 160 H Potassium Level 3.0 L Chloride Level 121 H Carbon Dioxide Level 35 H Anion Gap 4 L Blood Urea Nitrogen 67 H Creatinine 1.40 H Est Glomerular Filtrat Rate mL/min Glucose Level 71 Calcium Level 7.4 L Home Meds Active Scripts Apixaban* (Eliquis*) 5 Mg Tablet, 2.5 MG PO BID for 30 Days, TAB Prov:IVAN AKHTAR MD 12/20/18 Metoprolol Tartrate* (Lopressor*) 50 Mg Tab, 50 MG PO BID for 30 Days, TAB Prov:COOPER CARO 12/20/18 Reported Medications Furosemide* (Lasix*) 20 Mg Tablet, 20 MG PO BID, TAB 01/05/19 Polyethylene Glycol* (Miralax*) 17 Gm Powd.pack, 17 GM PO DAILY, #30 PACKET 12/15/18 Nifedipine* (Nifedipine ER*) 60 Mg Tablet.sa, 60 MG PO DAILY, TAB.SA 12/15/18 Bisacodyl* (Bisacodyl*) 5 Mg Tablet.dr, 10 MG PO BID PRN for CONSTIPATION, TAB 12/15/18 Pregabalin* (Lyrica*) 25 Mg Capsule, 25 MG PO TID, CAP 12/15/18 Bimatoprost* (Lumigan*) 0.01%-5 Ml Opht Drops, 1 DROP BOTH EYES HS, EA 03/02/18 Cetirizine Hcl* (Cetirizine Hcl*) 10 Mg Tablet, 10 MG PO DAILY, #30 TAB 03/02/18 Insulin Glargine* (Lantus*) 100 Unit/Ml Soln, 10 UNIT SC QHS, #1 VIAL 03/02/18 Ergocalciferol (Vitamin D2) (VITAMIN D2) 2,000 Unit Tablet, 2000 UNIT PO DAILY, TAB 03/02/18 Famotidine* (Famotidine*) 20 Mg Tablet, 20 MG PO DAILY, #30 TAB 03/02/18 Ferrous Sulfate* (Ferrous Sulfate*) 325 Mg Tabec, 325 MG PO BID, TAB 03/02/18 Nitroglycerin* (Nitrostat*) 0.4 Mg Tab.subl, 0.4 MG SL Q5MIN PRN for CHEST PAIN, BOTTLE 03/02/18 Terazosin Hcl* (Terazosin Hcl*) 10 Mg Capsule, 10 MG PO HS, CAP 03/02/18 Levothyroxine Sodium* (Levoxyl*) 125 Mcg Tablet, 125 MCG PO BEFORE BREAKFAST, #30 TAB 03/02/18 Allopurinol* (Allopurinol*) 100 Mg Tablet, 100 MG PO BID, TAB 03/02/18 Atorvastatin* (Atorvastatin*) 40 Mg Tablet, 40 MG PO QHS, #30 TAB 03/02/18 Folic Acid* (Folic Acid*) 1 Mg Tablet, 1 MG PO DAILY, TAB 03/02/18 Medications Current Medications Lactulose (Enulose) 20 gm DAILY PRN PO CONSTIPATION; Start 01/17/19 at 18:17 Acetaminophen (Tylenol Tab) 650 mg Q4H PRN PO PAIN Last administered on 01/23/19at 22:48; Admin Dose 650 MG; Start 01/17/19 at 18:17 Miscellaneous Information (Pending [facility] Order For Wound Care) This patient ramirez... PRN PRN XX WOUND CARE; Start 01/17/19 at 18:17 Albuterol/ Ipratropium (Duoneb) 3 ml Q2H RESP THERAPY PRN HHN SHORTNESS OF BREATH; Start 01/17/19 at 18:17 Bisacodyl (Dulcolax) 10 mg BID PRN PO CONSTIPATION; Start 01/17/19 at 18:17; Status Hold Folic Acid (Folic Acid) 1 mg DAILY PO Last administered on 02/02/19at 08:43; Admin Dose 1 MG; Start 01/17/19 at 18:17 Latanoprost (Xalatan) 1 drop HS BOTH EYES Last administered on 02/02/19at 21:27; Admin Dose 1 DROP; Start 01/17/19 at 18:17 Nitroglycerin (Nitroglycerin (Sl Tab) 0.4 Mg) 0.4 tab Q5M PRN SL CHEST PAIN; Start 01/17/19 at 18:17 Nystatin (Nystatin Powder) 1 applic BID TOP Last administered on 02/02/19at 21:28; Admin Dose 1 APPLIC; Start 01/17/19 at 18:17 IV Flush (NS 3 ml) 3 ml PER PROTOCOL IV ; Start 01/17/19 at 18:17 Miscellaneous Information 1 ea NOTE XX ; Start 01/17/19 at 18:17 Glucose (Glutose) 15 gm Q15M PRN PO DECREASED GLUCOSE; Start 01/17/19 at 18:17 Glucose (Glutose) 22.5 gm Q15M PRN PO DECREASED GLUCOSE; Start 01/17/19 at 18:17 Dextrose (D50w Syringe) 25 ml Q15M PRN IV DECREASED GLUCOSE; Start 01/17/19 at 18:17 Dextrose (D50w Syringe) 50 ml Q15M PRN IV DECREASED GLUCOSE; Start 01/17/19 at 18:17 Glucagon (Glucagen) 1 mg Q15M PRN IM DECREASED GLUCOSE; Start 01/17/19 at 18:17 Glucose (Glutose) 15 gm Q15M PRN BUCCAL DECREASED GLUCOSE; Start 01/17/19 at 18:17 Zinc Sulfate (Zinc Sulfate) 220 mg DAILY PO Last administered on 02/02/19at 08:43; Admin Dose 220 MG; Start 01/17/19 at 18:17 Ascorbic Acid (Vitamin C) 250 mg DAILY PO Last administered on 02/02/19at 08:44; Admin Dose 250 MG; Start 01/17/19 at 18:17 Multi-Ingredient Ointment (Aquaphor Oint 52.5 Gm) 1 applic BID TOP Last administered on 02/02/19at 21:28; Admin Dose 1 APPLIC; Start 01/17/19 at 18:17 Bisacodyl (Dulcolax Supp) 10 mg DAILY PRN [place] CONSTIPATION; Start 01/17/19 at 18:17 Zinc Acetate/ Diphenhydramine (Benadryl 2% Cr) 1 applic Q6H PRN TOP ITCHING Last administered on 01/26/19at 07:54; Admin Dose 1 APPLIC; Start 01/19/19 at 16:37 IV Flush (NS 10 ml) 10 ml PRN PRN IV IV PROTOCOL; Start 01/20/19 at 14:30 Cyanocobalamin (Vitamin B12 Inj) 1,000 mcg Q7D IM ; Start 02/03/19 at 09:00 Metoprolol Tartrate (Lopressor) 5 mg Q4H PRN IV HR>110 Hold SBP<100; Start 01/26/19 at 14:30 Furosemide (Lasix) 40 mg BID DIURETICS IV Last administered on 02/03/19 05:54; Admin Dose 40 MG; Start 01/27/19 at 18:00 Vancomycin HCl (Vanco Iv Per Pharmacy) VANCOMYCIN PER PHARMACY PER PROTOCOL XX ; Start 01/27/19 at 12:00 Enoxaparin Sodium (Lovenox) 60 mg DAILY SC Last administered on 02/02/19 08:54; Admin Dose 60 MG; Start 01/28/19 at 09:00 Lorazepam (Ativan) 1 mg Q2 PRN IV SEIZURES Last administered on 02/02/19 09:18; Admin Dose 1 MG; Start 01/27/19 at 14:00 Aztreonam 50 ml @ 100 mls/hr Q12 IVPB Last administered on 02/02/19 21:27; Admin Dose 100 MLS/HR; Start 01/27/19 at 16:30 Metronidazole 100 ml @ 100 mls/hr Q8 IVPB Last administered on 02/03/19 05:53; Admin Dose 100 MLS/HR; Start 01/27/19 at 15:00 Atorvastatin Calcium (Lipitor) 40 mg QHS NGT Last administered on 02/02/19 21:27; Admin Dose 40 MG; Start 01/28/19 at 21:00 Docusate Sodium (Colace Liquid Cup) 100 mg BID NGT ; Start 01/27/19 at 22:00; Status Hold Terazosin HCl (Hytrin) 10 mg HS NGT Last administered on 02/02/19 21:26; Admin Dose 10 MG; Start 01/28/19 at 21:00 Levetiracetam 100 ml @ 400 mls/hr Q12 IVPB Last administered on 02/02/19 21:29; Admin Dose 400 MLS/HR; Start 01/28/19 at 09:00 Levothyroxine Sodium (Synthroid) 125 mcg BEFORE BREAKFAST NGT Last ad ministered on 02/03/19 06:00; Admin Dose 125 MCG; Start 01/28/19 at 07:00 Ferrous Sulfate (Feosol Liquid Cup) 300 mg WITH MEALS GTB Last administered on 02/03/19 07:28; Admin Dose 300 MG; Start 01/28/19 at 11:30 Multivitamins (Multivitamin) 30 ml DAILY GTB Last administered on 02/02/19 08:42; Admin Dose 30 ML; Start 01/28/19 at 11:00 Lansoprazole (Prevacid) 30 mg DAILY@06 NGT Last administered on 02/03/19 05:53; Admin Dose 30 MG; Start 01/28/19 at 11:00 Diagnostic Test (Pha) (Accu-Chek) 1 ea Q4 XX Last administered on 02/02/19 17:16; Admin Dose 1 EA; Start 01/28/19 at 13:00 Nystatin/ Triamcinolone Acetonide (Mycolog Oint) 1 applic BID TOP Last administered on 02/02/19 21:28; Admin Dose 1 APPLIC; Start 01/28/19 at 22:30 Insulin Aspart (Novolog Insulin Pen) NOVOLOG *MILD* ALGORI... Q4 SC Last administered on 02/01/19 20:14; Admin Dose 2 UNIT; Start 01/29/19 at 05:00 Albuterol/ Ipratropium (Duoneb) 3 ml Q6HWA RESP THERAPY HHN Last administered on 02/02/19 21:18; Admin Dose 3 ML; Start 01/29/19 at 14:00 Epoetin Dae-epbx (RETACRIT(non-esrd)) 40,000 unit Mo@1700 SC ; Start 02/03/19 at 17:00 Mupirocin (Bactroban) 1 applic BID TOP Last administered on 02/02/19 21:28; Admin Dose 1 APPLIC; Start 01/30/19 at 15:26; Stop 02/09/19 at 15:25 Vancomycin HCl 250 ml @ 125 mls/hr Q48H IVPB Last administered on 02/02/19 10:58; Admin Dose 125 MLS/HR; Start 01/31/19 at 11:00 Tobramycin Sulfate/Sodium Chloride (Nilesh Inhal) 300 mg BID RESP THERAPY NEB Last administered on 02/02/19 07:49; Admin Dose 300 MG; Start 01/30/19 at 20:00 Insulin Glargine (Lantus) 10 units DAILY@2000 SC Last administered on 02/02/19 21:31; Admin Dose 10 UNITS; Start 01/31/19 at 20:00 Potassium Chloride (Potassium Chloride Pwd/Soln) 20 meq TID NGT Last administered on 5/12/19at 21:27; Admin Dose 20 MEQ; Start 02/02/19 at 09:00 Methylprednisolone Sodium Succinate (Solu-Medrol) 40 mg DAILY IV ; Start 02/03/19 at 09:00 Insulin Human NPH (Humulin N) 3 unit DAILY SC ; Start 02/03/19 at 09:00 Potassium Chloride/Dextrose/ Sod Cl 1,000 ml @ 40 mls/hr Q24H IV Last administered on 02/02/19at 14:37; Admin Dose 40 MLS/HR; Start 02/02/19 at 13:30 Assessment/Plan Hospital Course (Demo Recall) 1. Atrial fibrillation, currently rate controlled.-off systemic anticoagulation due to anemia. On ASA only now - RATE CONTROLLED. now in a. fib. At 100s - will allow for now. 2. CHF - chronic, DD. EF of 60%.Spot diuresis as needed. Con't to follow. Euvolemic by exam. 3. Tricuspid regurgitation, moderate by most recent echo. 4. Acute on chronic renal failure - Cr 1.40 - avoid nephrotoxic meds. Dr. Alatorre follow. Stable. Reasonable urine output. 5. Hyponatremia - going up to 160s - check am cortisol level. 5. Possible pneumonia - on anti-bx now. ID follows On pressors now. 6. History of coronary artery disease, status post coronary artery bypass graft surgery. Treated. 7. Dyslipidemia. 8. Rheumatoid arthritis - Rx per rheumatology. 9. Groin cellulitis. 10. Anemia-worsening again today requiring transfusions PRBC's.Now post-op s/p endoscopy ? findings - H/H at 6.4 - blood Rx to follow,trending down again 8.4 and gain 7.9. 11. Diabetes mellitus. 12. Sepsis - skin looks better. LOU PATINO MD February 03, 2019 07:54
[2019-02-03] MEDS: ZINC SULFATE 220 MG CAP PO SCH (08:00)
[2019-02-03] MEDS: MULTIVITAMINS 30 ML CUP GTB SCH (08:00)
[2019-02-03] MEDS: POTASSIUM CHLORIDE 20 MEQ POWDER FOR ORAL SOLN NGT SCH ×3 (08:00→20:34)
[2019-02-03] MEDS: MUPIROCIN 2% 22 GM OINT TOP SCH ×2 (08:02→20:35)
[2019-02-03] MEDS: NYSTATIN/TRIAMCINOLONE 15 GM OINT TOP SCH ×2 (08:02→20:35)
[2019-02-03] MEDS: AQUAPHOR 52.5 GM OINT TOP SCH ×2 (08:02→20:36)
[2019-02-03] MEDS: NYSTATIN 30 GM POWDER BTL TOP SCH ×2 (08:04→20:35)
[2019-02-03] MEDS: BALSAM PERU/CASTOR OIL 60 GM TUBE TOP SCH ×2 (08:05→20:35)
[2019-02-03] MEDS: ENOXAPARIN 60 MG/0.6 ML SYG SC SCH (08:06)
[2019-02-03] MEDS: METHYLPREDNISOLONE 40 MG INJ IV SCH (08:13)
[2019-02-03] MEDS: FOLIC ACID 1 MG TAB PO SCH (08:13)
[2019-02-03] MEDS: ASCORBIC ACID 250 MG TAB PO SCH (08:13)
[2019-02-03] MEDS: CYANOCOBALAMIN 1000 MCG INJ IM SCH (08:14)
[2019-02-03] MEDS: AZTREONAM 1 GM/NS (PMX) 50 ML IVPB SCH (08:35)
[2019-02-03] MEDS: NPH, HUMAN INSULIN ISOPHANE 3ML VIAL SC SCH (08:39)
[2019-02-03] MEDS: ALBUTEROL/IPRATROPIUM (NEB) 3 ML AMP HHN SCH ×3 (09:04→20:27)
[2019-02-03] MEDS: LEVETIRACETAM 500 MG (PMX) 100 ML IVPB SCH ×2 (10:39→20:34)
[2019-02-03] MEDS: DEXTROSE 5% 1,000 ML IV SCH (10:55)
[2019-02-03] MEDS ORDERED: ACETAZOLAMIDE 500 MG INJ IV ONE (11:00)
--- NOTE | 2019-02-03 11:05 | CONS ---
Consult Date/Type/Reason Admit Date/Time Jan 17, 2019 at 15:58 Initial Consult Date 01/18/19 Type of Consult Pulmonary Requesting Provider: IVAN AKHTAR MD Date/Time of Note DATE: 02/03/19 TIME: 11:03 Subjective Transfer to ICU for hypothermia. Appears comfortable this morning intermittent agitation no respiratory distress. Objective Vital Signs Date Temp Pulse Resp B/P (MAP) Pulse Ox O2 O2 Flow FiO2 Time Delivery Rate 02/03/19 98 22 124/45 97 Nasal 2.0 10:00 (71) Cannula 02/03/19 98.8 07:14 02/03/19 27 03:00 Intake and Output 02/02/19 02/02/19 02/03/19 1515:00 23:00 07:00 IntakeIntake Total 400 ml 1610 ml 960 ml OutputOutput Total 2250 ml 405 ml BalanceBalance 400 ml -640 ml 555 ml Exam GENERAL: Frail elderly gentleman comfortable at rest on nasal cannula VITAL SIGNS: per chart NECK: Supple. No JVD or lymphadenopathy. CARDIAC EXAM: S1, S2. No added sounds or murmurs. CHEST: Diminished air entry both bases ABDOMEN: Soft, nontender. No guarding or rebound. EXTREMITIES: No cyanosis, clubbing edema +2 NEUROLOGIC: Generalized weakness. Vent Setting Fraction of Inspired Oxygen pe: 27 Results/Medications Result Diagram: 02/03/19 0500 02/03/19 0500 Results 24 hrs Laboratory Tests Test 02/02/19 13:18 02/02/19 17:14 02/02/19 21:26 02/03/19 01:03 Bedside Glucose 140 130 126 120 Test 02/03/19 04:48 02/03/19 05:00 02/03/19 05:21 02/03/19 08:12 Bedside Glucose 97 92 White Blood Count 36.2 H Red Blood Count 2.73 L Hemoglobin 7.9 L Hematocrit 24.5 L Mean Corpuscular 89.7 Volume Mean Corpuscular 28.9 L Hemoglobin Mean Corpuscular 32.2 Hemoglobin Concent Red Cell 18.4 H Distribution Width Platelet Count 122 L Mean Platelet Volume 12.7 H Immature 3.200 H Granulocytes % Neutrophils % Segmented 87 H Neutrophils % (Manual) Band Neutrophils % 9 H (Manual) Lymphocytes % Lymphocytes % 1 L (Manual) Monocytes % Monocytes % (Manual) 2 Eosinophils % Basophils % Myelocytes % 1 H (Manual) Nucleated Red Blood 4 H Cells % Immature 1.140 H Granulocytes # Neutrophils # Neutrophils # 32.7 H (Manual) Band Neutrophils # 3.2 H Lymphocytes (Manual) 0.3 L Lymphocytes # Monocytes # Monocytes # (Manual) 0.7 Eosinophils # Basophils # Myelocytes # 0.3 H Nucleated Red Blood Cells # Platelet Estimate DECREASED Polychromasia 3+ Hypochromasia 2+ Poikilocytosis 2+ Anisocytosis 2+ Microcytosis 2+ Macrocytosis 1+ Target Cells 1+ Schistocytes 1+ Sodium Level 160 H Potassium Level 3.0 L Chloride Level 121 H Carbon Dioxide Level 35 H Anion Gap 4 L Blood Urea Nitrogen 67 H Creatinine 1.40 H Est Glomerular Filtrat Rate mL/min Glucose Level 71 Calcium Level 7.4 L Random Cortisol 22.3 Thyroid Stimulating 2.400 Hormone (TSH) Medications Current Medications Lactulose (Enulose) 20 gm DAILY PRN PO CONSTIPATION; Start 01/17/19 at 18:17 Acetaminophen (Tylenol Tab) 650 mg Q4H PRN PO PAIN Last administered on 01/23/19 22:48; Admin Dose 650 MG; Start 01/17/19 at 18:17 Miscellaneous Information (Pending [facility] Order For Wound Care) This patient ramirez... PRN PRN XX WOUND CARE; Start 01/17/19 at 18:17 Albuterol/ Ipratropium (Duoneb) 3 ml Q2H RESP THERAPY PRN HHN SHORTNESS OF BREATH; Start 01/17/19 at 18:17 Bisacodyl (Dulcolax) 10 mg BID PRN PO CONSTIPATION; Start 01/17/19 at 18:17; Status Hold Folic Acid (Folic Acid) 1 mg DAILY PO Last administered on 02/03/19 08:13; Admin Dose 1 MG; Start 01/17/19 at 18:17 Latanoprost (Xalatan) 1 drop HS BOTH EYES Last administered on 02/02/19 21:27; Admin Dose 1 DROP; Start 01/17/19 at 18:17 Nitroglycerin (Nitroglycerin (Sl Tab) 0.4 Mg) 0.4 tab Q5M PRN SL CHEST PAIN; Start 01/17/19 at 18:17 Nystatin (Nystatin Powder) 1 applic BID TOP Last administered on 02/03/19 08:04; Admin Dose 1 APPLIC; Start 01/17/19 at 18:17 IV Flush (NS 3 ml) 3 ml PER PROTOCOL IV ; Start 01/17/19 at 18:17 Miscellaneous Information 1 ea NOTE XX ; Start 01/17/19 at 18:17 Glucose (Glutose) 15 gm Q15M PRN PO DECREASED GLUCOSE; Start 01/17/19 at 18:17 Glucose (Glutose) 22.5 gm Q15M PRN PO DECREASED GLUCOSE; Start 01/17/19 at 18:17 Dextrose (D50w Syringe) 25 ml Q15M PRN IV DECREASED GLUCOSE; Start 01/17/19 at 18:17 Dextrose (D50w Syringe) 50 ml Q15M PRN IV DECREASED GLUCOSE; Start 01/17/19 at 18:17 Glucagon (Glucagen) 1 mg Q15M PRN IM DECREASED GLUCOSE; Start 01/17/19 at 18:17 Glucose (Glutose) 15 gm Q15M PRN BUCCAL DECREASED GLUCOSE; Start 01/17/19 at 18:17 Zinc Sulfate (Zinc Sulfate) 220 mg DAILY PO Last administered on 02/03/19 08:00; Admin Dose 220 MG; Start 01/17/19 at 18:17 Ascorbic Acid (Vitamin C) 250 mg DAILY PO Last administered on 02/03/19 08:13; Admin Dose 250 MG; Start 01/17/19 at 18:17 Multi-Ingredient Ointment (Aquaphor Oint 52.5 Gm) 1 applic BID TOP Last administered on 02/03/19 08:02; Admin Dose 1 APPLIC; Start 01/17/19 at 18:17 Bisacodyl (Dulcolax Supp) 10 mg DAILY PRN [place] CONSTIPATION; Start 01/17/19 at 18:17 Zinc Acetate/ Diphenhydramine (Benadryl 2% Cr) 1 applic Q6H PRN TOP ITCHING Last administered on 01/26/19 07:54; Admin Dose 1 APPLIC; Start 01/19/19 at 16:37 IV Flush (NS 10 ml) 10 ml PRN PRN IV IV PROTOCOL; Start 01/20/19 at 14:30 Cyanocobalamin (Vitamin B12 Inj) 1,000 mcg Q7D IM Last administered on 02/03/19 08:14; Admin Dose 1,000 MCG; Start 02/03/19 at 09:00 Metoprolol Tartrate (Lopressor) 5 mg Q4H PRN IV HR>110 Hold SBP<100; Start 01/26/19 at 14:30 Vancomycin HCl (Vanco Iv Per Pharmacy) VANCOMYCIN PER PHARMACY PER PROTOCOL XX ; Start 01/27/19 at 12:00 Enoxaparin Sodium (Lovenox) 60 mg DAILY SC Last administered on 02/03/19 08:06; Admin Dose 60 MG; Start 01/28/19 at 09:00 Lorazepam (Ativan) 1 mg Q2 PRN IV SEIZURES Last administered on 02/02/19 09:18; Admin Dose 1 MG; Start 01/27/19 at 14:00 Aztreonam 50 ml @ 100 mls/hr Q12 IVPB Last administered on 02/03/19 08:35; Admin Dose 100 MLS/HR; Start 01/27/19 at 16:30 Metronidazole 100 ml @ 100 mls/hr Q8 IVPB Last administered on 02/03/19 05:53; Admin Dose 100 MLS/HR; Start 01/27/19 at 15:00 Atorvastatin Calcium (Lipitor) 40 mg QHS NGT Last administered on 02/02/19 21:27; Admin Dose 40 MG; Start 01/28/19 at 21:00 Docusate Sodium (Colace Liquid Cup) 100 mg BID NGT ; Start 01/27/19 at 22:00; Status Hold Terazosin HCl (Hytrin) 10 mg HS NGT Last administered on 02/02/19 21:26; Admin Dose 10 MG; Start 01/28/19 at 21:00 Levetiracetam 100 ml @ 400 mls/hr Q12 IVPB Last administered on 02/03/19 10:39; Admin Dose 400 MLS/HR; Start 01/28/19 at 09:00 Levothyroxine Sodium (Synthroid) 125 mcg BEFORE BREAKFAST NGT Last administered on 02/03/19 06:00; Admin Dose 125 MCG; Start 01/28/19 at 07:00 Ferrous Sulfate (Feosol Liquid Cup) 300 mg WITH MEALS GTB Last administered on 02/03/19 07:28; Admin Dose 300 MG; Start 01/28/19 at 11:30 Multivitamins (Multivitamin) 30 ml DAILY GTB Last administered on 02/03/19 08:00; Admin Dose 30 ML; Start 01/28/19 at 11:00 Lansoprazole (Prevacid) 30 mg DAILY@06 NGT Last administered on 02/03/19 05:53; Admin Dose 30 MG; Start 01/28/19 at 11:00 Diagnostic Test (Pha) (Accu-Chek) 1 ea Q4 XX Last administered on 02/03/19 08:18; Admin Dose 1 EA; Start 01/28/19 at 13:00 Nystatin/ Triamcinolone Acetonide (Mycolog Oint) 1 applic BID TOP Last administered on 02/03/19 08:02; Admin Dose 1 APPLIC; Start 01/28/19 at 22:30 Insulin Aspart (Novolog Insulin Pen) NOVOLOG *MILD* ALGORI... Q4 SC Last administered on 02/01/19 20:14; Admin Dose 2 UNIT; Start 01/29/19 at 05:00 Albuterol/ Ipratropium (Duoneb) 3 ml Q6HWA RESP THERAPY HHN Last administered on 02/03/19 09:04; Admin Dose 3 ML; Start 01/29/19 at 14:00 Epoetin Dae-epbx (RETACRIT(non-esrd)) 40,000 unit Mo@1700 SC ; Start 02/03/19 at 17:00 Mupirocin (Bactroban) 1 applic BID TOP Last administered on 02/03/19 08:02; Admin Dose 1 APPLIC; Start 01/30/19 at 15:26; Stop 02/09/19 at 15:25 Vancomycin HCl 250 ml @ 125 mls/hr Q48H IVPB Last administered on 02/02/19 10:58; Admin Dose 125 MLS/HR; Start 01/31/19 at 11:00 Tobramycin Sulfate/Sodium Chloride (Nilesh Inhal) 300 mg BID RESP THERAPY NEB Last administered on 02/02/19 07:49; Admin Dose 300 MG; Start 01/30/19 at 20:00 Insulin Glargine (Lantus) 10 units DAILY@2000 SC Last administered on 02/02/19 21:31; Admin Dose 10 UNITS; Start 01/31/19 at 20:00 Potassium Chloride (Potassium Chloride Pwd/Soln) 20 meq TID NGT Last administered on 02/03/19at 08:00; Admin Dose 20 MEQ; Start 02/02/19 at 09:00 Methylprednisolone Sodium Succinate (Solu-Medrol) 40 mg DAILY IV Last administered on 02/03/19at 08:13; Admin Dose 40 MG; Start 02/03/19 at 09:00 Insulin Human NPH (Humulin N) 3 unit DAILY SC Last administered on 02/03/19at 08:39; Admin Dose 3 UNIT; Start 02/03/19 at 09:00 Furosemide (Lasix) 40 mg DAILY IV ; Start 02/04/19 at 09:00 Dextrose 1,000 ml @ 50 mls/hr Q20H IV Last administered on 02/03/19at 10:55; Admin Dose 50 MLS/HR; Start 02/03/19 at 11:00 Assessment/Plan Hospital Course (Demo Recall) IMP: 1. s/p Acute hypoxemic respiratory failure likely secondary to combination of volume overload and pneumonia 2. Encephalopathy underlying dementia versus toxic metabolic, appears to be slowly improving 3. Valvular heart disease 4. Severe dysphagia 5. Septic shock likely secondary to above 6. Anemia, no active GI bleeding 7. Skin diffuse excoriating skin lesion unclear etiology not consistent with history of "red man" syndrome. or pemphigus. 8. Anemia RECS: 1. Monitor respiratory status closely. Strict aspiration precautions 2. Continue broad-spectrum antibiotics 3. Infectious work-up as per ID 4. Monitor H&H 5. Palliative care consult appreciated 6. Replete K+ and Mg 7. Increase free H20 Overall prognosis remains guarded Critical care time 40 minutes DIANA MCRAE [facility], [facility] February 03, 2019 11:05
--- NOTE | 2019-02-03 11:12 | PN ---
Date/Time of Note Date/Time of Note DATE: 02/03/19 TIME: 11:04 Assessment/Plan VTE Prophylaxis Risk score (from [facility])>0 risk: 9 SCD applied (from [facility]): No SCD contraindicated: low risk/ambulating Pharmacological prophylaxis: NA/contraindicated Pharm contraindication: low risk/ambulating Lines/Catheters IV Catheter Type (from [facility] [place]): Central Line Central line still needed: Yes Urinary Cath still in place: Yes Reason Cath still needed: urinary retention Assessment/Plan Hospital Course Hospital Course # AMS likely due to stroke vs seizure, 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 Septic shock now on pressors likely secondary to pneumonia on levophed # Hypothermia ? sepsis #. Severe anemia #. Chronic renal failure likely secondary to sepsis, improved, normal creatinine #. Hypertension.currently hypotensive # Impending respiratory failure # Anasarca # Hyperlipidemia. # Hypothyroidism. # Bilateral groin cellulitis more likely associated with mateus, patches in groin and axilla bilaterally. skin peeling # History of rheumatoid arthritis with joint deformities. # Diabetes type 2. # Hx of CABGx2, carotid stent #. Peripheral vascular disease. #. Chronic a.fib, now on lovenox #. right arm edema # Neoplasm per CT abdomen. 4.3 cm cystic lesion along the pancreas body, enlarged since 10/10/2012 (previously 2.4 cm). 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 # Possible allergic skin reaction ? drug present since admission> improved s/p biopsy/ Amrik Betancourt > limit results solar keratosis # hypoThermia #Hypernatremia likley due to dehydration # metabolic alkalosis Plan - FWF and change fluids to d5w , recheck sodium - decrease lasix due to metabolci alkalosis - diamox iv x1 - tsh and cortisol wnl - cw feeding at 60 cc/hr - cw aztreonam/vanco/flagyl - dec solumedrol to 40 - replete k -c w keppra - cw lovenox 60 for afib - fu Neuro recs and neuro checks ? LP -on ASA, statin - GI and DVT prophylaxsis -oncology consul dr Lorenzo aware:he said Ca 19-9 is negative indicating unlikely malignant. This may be a pseudocyst or a precancerous pancreatic lesion. It has been growing in size but patient is asymptomatic. EUS with biopsy is recommended and can either be done inpatient or outpatient setting. The patient at this time is unlikely a candidate for a Whipple surgery however. -skin care - s/p skin biopsy pending results solar elastosis > will kemar derm input - spoke ot pharmcay to change abx in d5w Result Diagram: 02/03/19 0500 02/03/19 0500 Results 24hrs Laboratory Tests Test 02/02/19 13:18 02/02/19 17:14 02/02/19 21:26 02/03/19 01:03 Bedside Glucose 140 130 126 120 Test 02/03/19 04:48 02/03/19 05:00 02/03/19 05:21 02/03/19 08:12 Bedside Glucose 97 92 White Blood Count 36.2 H Red Blood Count 2.73 L Hemoglobin 7.9 L Hematocrit 24.5 L Mean Corpuscular 89.7 Volume Mean Corpuscular 28.9 L Hemoglobin Mean Corpuscular 32.2 Hemoglobin Concent Red Cell 18.4 H Distribution Width Platelet Count 122 L Mean Platelet Volume 12.7 H Immature 3.200 H Granulocytes % Neutrophils % Segmented 87 H Neutrophils % (Manual) Band Neutrophils % 9 H (Manual) Lymphocytes % Lymphocytes % 1 L (Manual) Monocytes % Monocytes % (Manual) 2 Eosinophils % Basophils % Myelocytes % 1 H (Manual) Nucleated Red Blood 4 H Cells % Immature 1.140 H Granulocytes # Neutrophils # Neutrophils # 32.7 H (Manual) Band Neutrophils # 3.2 H Lymphocytes (Manual) 0.3 L Lymphocytes # Monocytes # Monocytes # (Manual) 0.7 Eosinophils # Basophils # Myelocytes # 0.3 H Nucleated Red Blood Cells # Platelet Estimate DECREASED Polychromasia 3+ Hypochromasia 2+ Poikilocytosis 2+ Anisocytosis 2+ Microcytosis 2+ Macrocytosis 1+ Target Cells 1+ Schistocytes 1+ Sodium Level 160 H Potassium Level 3.0 L Chloride Level 121 H Carbon Dioxide Level 35 H Anion Gap 4 L Blood Urea Nitrogen 67 H Creatinine 1.40 H Est Glomerular Filtrat Rate mL/min Glucose Level 71 Calcium Level 7.4 L Random Cortisol 22.3 Thyroid Stimulating 2.400 Hormone (TSH) Subjective 24 Hr Interval Summary Free Text/Dictation Patient was transferred due to hypothermia Opens eyes answer few questions Exam/Review of Systems Exam Vitals Vital Signs Date Temp Pulse Resp B/P (MAP) Pulse Ox O2 O2 Flow FiO2 Time Delivery Rate 02/03/19 95 15 132/65 97 Nasal 2.0 11:00 (87) Cannula 02/03/19 98.8 07:14 02/03/19 27 03:00 Intake and Output 02/02/19 02/02/19 02/03/19 1515:00 23:00 07:00 IntakeIntake Total 400 ml 1610 ml 960 ml OutputOutput Total 2250 ml 405 ml BalanceBalance 400 ml -640 ml 555 ml Exam NG tube Constitutional: frail. answers his name his daughter's name and the month Respiratory: diminished breath sounds Cardiovascular: regular rate and rhythm, other (afib) Gastrointestinal: soft Neurological: confused Skin: diffuse dequamativ etissue Results Results 24hrs Laboratory Tests Test 02/02/19 13:18 02/02/19 17:14 02/02/19 21:26 02/03/19 01:03 Bedside Glucose 140 130 126 120 Test 02/03/19 04:48 02/03/19 05:00 02/03/19 05:21 02/03/19 08:12 Bedside Glucose 97 92 White Blood Count 36.2 H Red Blood Count 2.73 L Hemoglobin 7.9 L Hematocrit 24.5 L Mean Corpuscular 89.7 Volume Mean Corpuscular 28.9 L Hemoglobin Mean Corpuscular 32.2 Hemoglobin Concent Red Cell 18.4 H Distribution Width Platelet Count 122 L Mean Platelet Volume 12.7 H Immature 3.200 H Granulocytes % Neutrophils % Segmented 87 H Neutrophils % (Manual) Band Neutrophils % 9 H (Manual) Lymphocytes % Lymphocytes % 1 L (Manual) Monocytes % Monocytes % (Manual) 2 Eosinophils % Basophils % Myelocytes % 1 H (Manual) Nucleated Red Blood 4 H Cells % Immature 1.140 H Granulocytes # Neutrophils # Neutrophils # 32.7 H (Manual) Band Neutrophils # 3.2 H Lymphocytes (Manual) 0.3 L Lymphocytes # Monocytes # Monocytes # (Manual) 0.7 Eosinophils # Basophils # Myelocytes # 0.3 H Nucleated Red Blood Cells # Platelet Estimate DECREASED Polychromasia 3+ Hypochromasia 2+ Poikilocytosis 2+ Anisocytosis 2+ Microcytosis 2+ Macrocytosis 1+ Target Cells 1+ Schistocytes 1+ Sodium Level 160 H Potassium Level 3.0 L Chloride Level 121 H Carbon Dioxide Level 35 H Anion Gap 4 L Blood Urea Nitrogen 67 H Creatinine 1.40 H Est Glomerular Filtrat Rate mL/min Glucose Level 71 Calcium Level 7.4 L Random Cortisol 22.3 Thyroid Stimulating 2.400 Hormone (TSH) Medications Medication Current Medications Lactulose (Enulose) 20 gm DAILY PRN PO CONSTIPATION; Start 01/17/19 at 18:17 Acetaminophen (Tylenol Tab) 650 mg Q4H PRN PO PAIN Last administered on 01/23/19at 22:48; Admin Dose 650 MG; Start 01/17/19 at 18:17 Misc[facility] This patient ramirez... PRN PRN XX WOUND CARE; Start 01/17/19 at 18:17 Albuterol/ Ipratropium (Duoneb) 3 ml Q2H RESP THERAPY PRN HHN SHORTNESS OF BREATH; Start 01/17/19 at 18:17 Bisacodyl (Dulcolax) 10 mg BID PRN PO CONSTIPATION; Start 01/17/19 at 18:17; Status Hold Folic Acid (Folic Acid) 1 mg DAILY PO Last administered on 02/03/19at 08:13; Admin Dose 1 MG; Start 01/17/19 at 18:17 Latanoprost (Xalatan) 1 drop HS BOTH EYES Last administered on 02/02/19at 21:27; Admin Dose 1 DROP; Start 01/17/19 at 18:17 Nitroglycerin (Nitroglycerin (Sl Tab) 0.4 Mg) 0.4 tab Q5M PRN SL CHEST PAIN; Start 01/17/19 at 18:17 Nystatin (Nystatin Powder) 1 applic BID TOP Last administered on 02/03/19at 08:04; Admin Dose 1 APPLIC; Start 01/17/19 at 18:17 IV Flush (NS 3 ml) 3 ml PER PROTOCOL IV ; Start 01/17/19 at 18:17 Miscellaneous Information 1 ea NOTE XX ; Start 01/17/19 at 18:17 Glucose (Glutose) 15 gm Q15M PRN PO DECREASED GLUCOSE; Start 01/17/19 at 18:17 Glucose (Glutose) 22.5 gm Q15M PRN PO DECREASED GLUCOSE; Start 01/17/19 at 18:17 Dextrose (D50w Syringe) 25 ml Q15M PRN IV DECREASED GLUCOSE; Start 01/17/19 at 18:17 Dextrose (D50w Syringe) 50 ml Q15M PRN IV DECREASED GLUCOSE; Start 01/17/19 at 18:17 Glucagon (Glucagen) 1 mg Q15M PRN IM DECREASED GLUCOSE; Start 01/17/19 at 18:17 Glucose (Glutose) 15 gm Q15M PRN BUCCAL DECREASED GLUCOSE; Start 01/17/19 at 18:17 Zinc Sulfate (Zinc Sulfate) 220 mg DAILY PO Last administered on 02/03/19at 08:00; Admin Dose 220 MG; Start 01/17/19 at 18:17 Ascorbic Acid (Vitamin C) 250 mg DAILY PO Last administered on 02/03/19 08:13; Admin Dose 250 MG; Start 01/17/19 at 18:17 Multi-Ingredient Ointment (Aquaphor Oint 52.5 Gm) 1 applic BID TOP Last administered on 02/03/19 08:02; Admin Dose 1 APPLIC; Start 01/17/19 at 18:17 Bisacodyl (Dulcolax Supp) 10 mg DAILY PRN [place] CONSTIPATION; Start 01/17/19 at 18:17 Zinc Acetate/ Diphenhydramine (Benadryl 2% Cr) 1 applic Q6H PRN TOP ITCHING Last administered on 01/26/19at 07:54; Admin Dose 1 APPLIC; Start 01/19/19 at 16:37 IV Flush (NS 10 ml) 10 ml PRN PRN IV IV PROTOCOL; Start 01/20/19 at 14:30 Cyanocobalamin (Vitamin B12 Inj) 1,000 mcg Q7D IM Last administered on 02/03/19at 08:14; Admin Dose 1,000 MCG; Start 02/03/19 at 09:00 Metoprolol Tartrate (Lopressor) 5 mg Q4H PRN IV HR>110 Hold SBP<100; Start 01/26/19 at 14:30 Vancomycin HCl (Vanco Iv Per Pharmacy) VANCOMYCIN PER PHARMACY PER PROTOCOL XX ; Start 01/27/19 at 12:00 Enoxaparin Sodium (Lovenox) 60 mg DAILY SC Last administered on 02/03/19at 08:06; Admin Dose 60 MG; Start 01/28/19 at 09:00 Lorazepam (Ativan) 1 mg Q2 PRN IV SEIZURES Last administered on 02/02/19 09:18; Admin Dose 1 MG; Start 01/27/19 at 14:00 Aztreonam 50 ml @ 100 mls/hr Q12 IVPB Last administered on 02/03/19 08:35; Admin Dose 100 MLS/HR; Start 01/27/19 at 16:30 Metronidazole 100 ml @ 100 mls/hr Q8 IVPB Last administered on 02/03/19 05:53; Admin Dose 100 MLS/HR; Start 01/27/19 at 15:00 Atorvastatin Calcium (Lipitor) 40 mg QHS NGT Last administered on 02/02/19 21:27; Admin Dose 40 MG; Start 01/28/19 at 21:00 Docusate Sodium (Colace Liquid Cup) 100 mg BID NGT ; Start 01/27/19 at 22:00; Status Hold Terazosin HCl (Hytrin) 10 mg HS NGT Last administered on 02/02/19 21:26; Admin Dose 10 MG; Start 01/28/19 at 21:00 Levetiracetam 100 ml @ 400 mls/hr Q12 IVPB Last administered on 02/03/19 10:39; Admin Dose 400 MLS/HR; Start 01/28/19 at 09:00 Levothyroxine Sodium (Synthroid) 125 mcg BEFORE BREAKFAST NGT Last administe red on 02/03/19 06:00; Admin Dose 125 MCG; Start 01/28/19 at 07:00 Ferrous Sulfate (Feosol Liquid Cup) 300 mg WITH MEALS GTB Last administered on 02/03/19 07:28; Admin Dose 300 MG; Start 01/28/19 at 11:30 Multivitamins (Multivitamin) 30 ml DAILY GTB Last administered on 02/03/19 08:00; Admin Dose 30 ML; Start 01/28/19 at 11:00 Lansoprazole (Prevacid) 30 mg DAILY@06 NGT Last administered on 02/03/19 05:53; Admin Dose 30 MG; Start 01/28/19 at 11:00 Diagnostic Test (Pha) (Accu-Chek) 1 ea Q4 XX Last administered on 02/03/19 08:18; Admin Dose 1 EA; Start 01/28/19 at 13:00 Nystatin/ Triamcinolone Acetonide (Mycolog Oint) 1 applic BID TOP Last administered on 02/03/19 08:02; Admin Dose 1 APPLIC; Start 01/28/19 at 22:30 Insulin Aspart (Novolog Insulin Pen) NOVOLOG *MILD* ALGORI... Q4 SC Last administered on 02/01/19 20:14; Admin Dose 2 UNIT; Start 01/29/19 at 05:00 Albuterol/ Ipratropium (Duoneb) 3 ml Q6HWA RESP THERAPY HHN Last administered on 02/03/19 09:04; Admin Dose 3 ML; Start 01/29/19 at 14:00 Epoetin Dae-epbx (RETACRIT(non-esrd)) 40,000 unit Mo@1700 SC ; Start 02/03/19 at 17:00 Mupirocin (Bactroban) 1 applic BID TOP Last administered on 02/03/19 08:02; Admin Dose 1 APPLIC; Start 01/30/19 at 15:26; Stop 02/09/19 at 15:25 Vancomycin HCl 250 ml @ 125 mls/hr Q48H IVPB Last administered on 02/02/19 10:58; Admin Dose 125 MLS/HR; Start 01/31/19 at 11:00 Tobramycin Sulfate/Sodium Chloride (Nilesh Inhal) 300 mg BID RESP THERAPY NEB Last administered on 02/02/19 07:49; Admin Dose 300 MG; Start 01/30/19 at 20:00 Insulin Glargine (Lantus) 10 units DAILY@2000 SC Last administered on 02/02/19 21:31; Admin Dose 10 UNITS; Start 01/31/19 at 20:00 Potassium Chloride (Potassium Chloride Pwd/Soln) 20 meq TID NGT Last administered on 02/03/19 08:00; Admin Dose 20 MEQ; Start 02/02/19 at 09:00 Methylprednisolone Sodium Succinate (Solu-Medrol) 40 mg DAILY IV Last administe red on 02/03/19 08:13; Admin Dose 40 MG; Start 02/03/19 at 09:00 Insulin Human NPH (Humulin N) 3 unit DAILY SC Last administered on 02/03/19 08:39; Admin Dose 3 UNIT; Start 02/03/19 at 09:00 Furosemide (Lasix) 40 mg DAILY IV ; Start 02/04/19 at 09:00 Dextrose 1,000 ml @ 50 mls/hr Q20H IV Last administered on 02/03/19at 10:55; Admin Dose 50 MLS/HR; Start 02/03/19 at 11:00 IVAN AKHTAR MD February 03, 2019 11:12
[2019-02-03] MEDS: TOBRAMYCIN/0.25NS 300 MG/5 ML INHAL NEB SCH ×3 (12:34→20:27)
--- NOTE | 2019-02-03 12:47 | CONS ---
Assessment/Plan Assessment/Plan Hospital Course (Demo Recall) No acute events overnight patient is lethargic hypothermic, looks comfortable WBC 36.2 platelets 122 neutrophils 87 bands 9 BUN 67 creatinine 1.40 Sputum culture grew E. coli Antimicrobials: Vancomycin, aztreonam, Flagyl, tobramycin inhalation Indwelling: Left subclavian triple-lumen catheter, Wade catheter, NG tube Allergy: Penicillin, sulfa Physical examination: Obese well-developed chronically ill-appearing - [place] man who is lethargic, in no distress. Head atraumatic normocephalic sclera nonicteric. Neck is supple chest rise symmetrical breath sounds diminished bases. Heart: S1-S2. Abdomen obese soft bowel sounds present extremities without cyanosis, bilateral edema Assessment: 1. Severe sepsis s/p shock 2. Acute encephalopathy 3. Seizures 4. Healthcare acquired, possible aspiration pneumonia 5. Coronary artery disease/history of CABG 6. Advanced rheumatoid arthritis 5. Chronic atrial fibrillation 6. Diabetes 7. BPH 9. Acute on chronic anemia===> s/p EGD/colonoscopy 01/09/19 10. Status post right epididymitis 11. Pancreatic lesion per CT, unlikely neoplasm per oncology notes 12. 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, s/p punch bx Plan: Clinically unchanged, continue present care, antibiotics, aspiration precautions, follow skin biopsy results Discussed with daughter at bedside Consultation Date/Type/Reason Admit Date/Time Jan 17, 2019 at 15:58 Initial Consult Date 01/18/19 Type of Consult id Requesting Provider: IVAN AKHTAR MD Date/Time of Note DATE: 02/03/19 TIME: 12:46 Exam/Review of Systems Exam Vitals Vital Signs Date Temp Pulse Resp B/P (MAP) Pulse Ox O2 O2 Flow FiO2 Time Delivery Rate 02/03/19 95 15 132/65 97 Nasal 2.0 11:00 (87) Cannula 02/03/19 98.8 07:14 02/03/19 27 03:00 Intake and Output 02/02/19 02/02/19 02/03/19 1515:00 23:00 07:00 IntakeIntake Total 400 ml 1610 ml 960 ml OutputOutput Total 2250 ml 405 ml BalanceBalance 400 ml -640 ml 555 ml Results Result Diagram: 02/03/19 0500 02/03/19 0500 Results 24hrs Laboratory Tests Test 02/02/19 13:18 02/02/19 17:14 02/02/19 21:26 02/03/19 01:03 Bedside Glucose 140 130 126 120 Test 02/03/19 04:48 02/03/19 05:00 02/03/19 05:21 02/03/19 08:12 Bedside Glucose 97 92 White Blood Count 36.2 H Red Blood Count 2.73 L Hemoglobin 7.9 L Hematocrit 24.5 L Mean Corpuscular 89.7 Volume Mean Corpuscular 28.9 L Hemoglobin Mean Corpuscular 32.2 Hemoglobin Concent Red Cell 18.4 H Distribution Width Platelet Count 122 L Mean Platelet Volume 12.7 H Immature 3.200 H Granulocytes % Neutrophils % Segmented 87 H Neutrophils % (Manual) Band Neutrophils % 9 H (Manual) Lymphocytes % Lymphocytes % 1 L (Manual) Monocytes % Monocytes % (Manual) 2 Eosinophils % Basophils % Myelocytes % 1 H (Manual) Nucleated Red Blood 4 H Cells % Immature 1.140 H Granulocytes # Neutrophils # Neutrophils # 32.7 H (Manual) Band Neutrophils # 3.2 H Lymphocytes (Manual) 0.3 L Lymphocytes # Monocytes # Monocytes # (Manual) 0.7 Eosinophils # Basophils # Myelocytes # 0.3 H Nucleated Red Blood Cells # Platelet Estimate DECREASED Polychromasia 3+ Hypochromasia 2+ Poikilocytosis 2+ Anisocytosis 2+ Microcytosis 2+ Macrocytosis 1+ Target Cells 1+ Schistocytes 1+ Sodium Level 160 H Potassium Level 3.0 L Chloride Level 121 H Carbon Dioxide Level 35 H Anion Gap 4 L Blood Urea Nitrogen 67 H Creatinine 1.40 H Est Glomerular Filtrat Rate mL/min Glucose Level 71 Calcium Level 7.4 L Random Cortisol 22.3 Thyroid Stimulating 2.400 Hormone (TSH) Medications Medication Current Medications Lactulose (Enulose) 20 gm DAILY PRN PO CONSTIPATION; Start 01/17/19 at 18:17 Acetaminophen (Tylenol Tab) 650 mg Q4H PRN PO PAIN Last administered on 01/23/19at 22:48; Admin Dose 650 MG; Start 01/17/19 at 18:17 Miscellaneous Information (Pending [facility] Order For Wound Care) This patient ramirez... PRN PRN XX WOUND CARE; Start 01/17/19 at 18:17 Albuterol/ Ipratropium (Duoneb) 3 ml Q2H RESP THERAPY PRN HHN SHORTNESS OF BREATH; Start 01/17/19 at 18:17 Bisacodyl (Dulcolax) 10 mg BID PRN PO CONSTIPATION; Start 01/17/19 at 18:17; Status Hold Folic Acid (Folic Acid) 1 mg DAILY PO Last administered on 02/03/19at 08:13; Admin Dose 1 MG; Start 01/17/19 at 18:17 Latanoprost (Xalatan) 1 drop HS BOTH EYES Last administered on 02/02/19at 21:27; Admin Dose 1 DROP; Start 01/17/19 at 18:17 Nitroglycerin (Nitroglycerin (Sl Tab) 0.4 Mg) 0.4 tab Q5M PRN SL CHEST PAIN; Start 01/17/19 at 18:17 Nystatin (Nystatin Powder) 1 applic BID TOP Last administered on 02/03/19at 08:04; Admin Dose 1 APPLIC; Start 01/17/19 at 18:17 IV Flush (NS 3 ml) 3 ml PER PROTOCOL IV ; Start 01/17/19 at 18:17 Miscellaneous Information 1 ea NOTE XX ; Start 01/17/19 at 18:17 Glucose (Glutose) 15 gm Q15M PRN PO DECREASED GLUCOSE; Start 01/17/19 at 18:17 Glucose (Glutose) 22.5 gm Q15M PRN PO DECREASED GLUCOSE; Start 01/17/19 at 18:17 Dextrose (D50w Syringe) 25 ml Q15M PRN IV DECREASED GLUCOSE; Start 01/17/19 at 18:17 Dextrose (D50w Syringe) 50 ml Q15M PRN IV DECREASED GLUCOSE; Start 01/17/19 at 18:17 Glucagon (Glucagen) 1 mg Q15M PRN IM DECREASED GLUCOSE; Start 01/17/19 at 18:17 Glucose (Glutose) 15 gm Q15M PRN BUCCAL DECREASED GLUCOSE; Start 01/17/19 at 18:17 Zinc Sulfate (Zinc Sulfate) 220 mg DAILY PO Last administered on 02/03/19at 08:00; Admin Dose 220 MG; Start 01/17/19 at 18:17 Ascorbic Acid (Vitamin C) 250 mg DAILY PO Last administered on 02/03/19at 08:13; Admin Dose 250 MG; Start 01/17/19 at 18:17 Multi-Ingredient Ointment (Aquaphor Oint 52.5 Gm) 1 applic BID TOP Last administered on 02/03/19 08:02; Admin Dose 1 APPLIC; Start 01/17/19 at 18:17 Bisacodyl (Dulcolax Supp) 10 mg DAILY PRN [place] CONSTIPATION; Start 01/17/19 at 18:17 Zinc Acetate/ Diphenhydramine (Benadryl 2% Cr) 1 applic Q6H PRN TOP ITCHING Last administered on 01/26/19 07:54; Admin Dose 1 APPLIC; Start 01/19/19 at 16:37 IV Flush (NS 10 ml) 10 ml PRN PRN IV IV PROTOCOL; Start 01/20/19 at 14:30 Cyanocobalamin (Vitamin B12 Inj) 1,000 mcg Q7D IM Last administered on 02/03/19 08:14; Admin Dose 1,000 MCG; Start 02/03/19 at 09:00 Metoprolol Tartrate (Lopressor) 5 mg Q4H PRN IV HR>110 Hold SBP<100; Start 01/26/19 at 14:30 Vancomycin HCl (Vanco Iv Per Pharmacy) VANCOMYCIN PER PHARMACY PER PROTOCOL XX ; Start 01/27/19 at 12:00 Enoxaparin Sodium (Lovenox) 60 mg DAILY SC Last administered on 02/03/19 08:06; Admin Dose 60 MG; Start 01/28/19 at 09:00 Lorazepam (Ativan) 1 mg Q2 PRN IV SEIZURES Last administered on 02/02/19 09:18; Admin Dose 1 MG; Start 01/27/19 at 14:00 Aztreonam 50 ml @ 100 mls/hr Q12 IVPB Last administered on 02/03/19 08:35; Admin Dose 100 MLS/HR; Start 01/27/19 at 16:30 Metronidazole 100 ml @ 100 mls/hr Q8 IVPB Last administered on 02/03/19 05:53; Admin Dose 100 MLS/HR; Start 01/27/19 at 15:00 Atorvastatin Calcium (Lipitor) 40 mg QHS NGT Last administered on 02/02/19 21:27; Admin Dose 40 MG; Start 01/28/19 at 21:00 Docusate Sodium (Colace Liquid Cup) 100 mg BID NGT ; Start 01/27/19 at 22:00; Status Hold Terazosin HCl (Hytrin) 10 mg HS NGT Last administered on 02/02/19 21:26; Admin Dose 10 MG; Start 01/28/19 at 21:00 Levetiracetam 100 ml @ 400 mls/hr Q12 IVPB Last administered on 02/03/19 10:39; Admin Dose 400 MLS/HR; Start 01/28/19 at 09:00 Levothyroxine Sodium (Synthroid) 125 mcg BEFORE BREAKFAST NGT Last administ ered on 02/03/19 06:00; Admin Dose 125 MCG; Start 01/28/19 at 07:00 Ferrous Sulfate (Feosol Liquid Cup) 300 mg WITH MEALS GTB Last administered on 02/03/19 07:28; Admin Dose 300 MG; Start 01/28/19 at 11:30 Multivitamins (Multivitamin) 30 ml DAILY GTB Last administered on 02/03/19 08:00; Admin Dose 30 ML; Start 01/28/19 at 11:00 Lansoprazole (Prevacid) 30 mg DAILY@06 NGT Last administered on 02/03/19 05:53; Admin Dose 30 MG; Start 01/28/19 at 11:00 Diagnostic Test (Pha) (Accu-Chek) 1 ea Q4 XX Last administered on 02/03/19 08:18; Admin Dose 1 EA; Start 01/28/19 at 13:00 Nystatin/ Triamcinolone Acetonide (Mycolog Oint) 1 applic BID TOP Last administered on 02/03/19 08:02; Admin Dose 1 APPLIC; Start 01/28/19 at 22:30 Insulin Aspart (Novolog Insulin Pen) NOVOLOG *MILD* ALGORI... Q4 SC Last administered on 02/01/19 20:14; Admin Dose 2 UNIT; Start 01/29/19 at 05:00 Albuterol/ Ipratropium (Duoneb) 3 ml Q6HWA RESP THERAPY HHN Last administered on 02/03/19 09:04; Admin Dose 3 ML; Start 01/29/19 at 14:00 Epoetin Dae-epbx (RETACRIT(non-esrd)) 40,000 unit Mo@1700 SC ; Start 02/03/19 at 17:00 Mupirocin (Bactroban) 1 applic BID TOP Last administered on 02/03/19 08:02; Admin Dose 1 APPLIC; Start 01/30/19 at 15:26; Stop 02/09/19 at 15:25 Vancomycin HCl 250 ml @ 125 mls/hr Q48H IVPB Last administered on 02/02/19 10:58; Admin Dose 125 MLS/HR; Start 01/31/19 at 11:00 Tobramycin Sulfate/Sodium Chloride (Nilesh Inhal) 300 mg BID RESP THERAPY NEB Last administered on 02/02/19 07:49; Admin Dose 300 MG; Start 01/30/19 at 20:00 Insulin Glargine (Lantus) 10 units DAILY@2000 SC Last administered on 02/02/19 21:31; Admin Dose 10 UNITS; Start 01/31/19 at 20:00 Potassium Chloride (Potassium Chloride Pwd/Soln) 20 meq TID NGT Last administered on 02/03/19 08:00; Admin Dose 20 MEQ; Start 02/02/19 at 09:00 Methylprednisolone Sodium Succinate (Solu-Medrol) 40 mg DAILY IV Last administ ered on 02/03/19 08:13; Admin Dose 40 MG; Start 02/03/19 at 09:00 Insulin Human NPH (Humulin N) 3 unit DAILY SC Last administered on 02/03/19 08:39; Admin Dose 3 UNIT; Start 02/03/19 at 09:00 Furosemide (Lasix) 40 mg DAILY IV ; Start 02/04/19 at 09:00 Dextrose 1,000 ml @ 50 mls/hr Q20H IV Last administered on 02/03/19at 10:55; Admin Dose 50 MLS/HR; Start 02/03/19 at 11:00 Miscellaneous Information (*Rx Drug Level Order Reminder*) VANCO TROUGH ON 01/22... 1000 ONCE XX ; Start 02/04/19 at 10:00; Stop 02/04/19 at 10:01 LUCIAN HARKINS NP February 03, 2019 12:47
--- NOTE | 2019-02-03 14:28 | CONS ---
Assessment/Plan Assessment/Plan Hospital Course 88 yo M with multiple comorbidities who initially presented for evaluation of hiccups. He was noted to become acutely altered... for which neurology is consulted. He was noted to develop ams on 01/21 around 7pm and noted on 01/22 to be unresponsive... prompting a code stroke activation. The clinical picture suggests an acute toxic-metabolic encephalopathy.. Meningoencephalitis is, though, not yet excluded. MRI brain is without acute ischemia, though notable for chronic infarcts. 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 On 02/03, the pt was again transferred to ICU for hypothermia. P: Cont Keppra 500 BID for now Ativan IV PRN prolonged seizure (> 5 min) Agree w/ ASA/Lipitor daily pending the above Limit sedating medications where possible Other medical management per primary Will follow clinically Consultation Date/Type/Reason Admit Date/Time Jan 17, 2019 at 15:58 Type of Consult Neurology Reason for Consultation ams; eval for stroke Requesting Provider: IVAN AKHTAR MD Date/Time of Note DATE: 02/03/19 TIME: 14:25 24 HR Interval Summary Free Text/Dictation Transferred to ICU for hypothermia. Pt stable Exam Vital Signs Vitals Vital Signs Date Temp Pulse Resp B/P (MAP) Pulse Ox O2 O2 Flow FiO2 Time Delivery Rate 02/03/19 92 25 100 Nasal 2.0 13:34 Cannula 02/03/19 132/65 11:00 (87) 02/03/19 98.8 07:14 02/03/19 27 03:00 Intake and Output 02/02/19 02/02/19 02/03/19 1515:00 23:00 07:00 IntakeIntake Total 400 ml 1610 ml 960 ml OutputOutput Total 2250 ml 405 ml BalanceBalance 400 ml -640 ml 555 ml Exam PE: Gen Appearance: No Apparent Distress HEENT: Normocephalic; on nasal cannula Cardiovascular: Regular rate Abdomen: Soft Extremities: Dry, skin peeling NE: The patient was asleep, though easily arousable. Sparsely verbal. Unable to track. Follows simple appendicular commands. Cranial nerve examination was limited by mental status. Pupils were equal and reactive to light. There was no afferent pupillary defect. Funduscopic examination was limited. Face was grossly symmetric. Tone was normal. Muscle bulk was normal. I did not see fasciculations. The patient was generally weak, though antigravity in his L arm. Coordination and gait testing was limited by mental status. Arm and leg reflexes were within normal limits and symmetric. Gray's sign was absent. Plantar responses were flexor. NEGRA CORONA NP February 03, 2019 14:28
[2019-02-03] MEDS ORDERED: VANCOMYCIN 1 GM in DEXTROSE 5% 250 ML IVPB SCH (15:30)
[2019-02-03] MEDS: EPOETIN ALFA-EPBX (NON-ESRD 10,000 UNIT/ML VIAL SC SCH (18:12)
[2019-02-03] MEDS: ATORVASTATIN 40 MG TAB NGT SCH (20:34)
[2019-02-03] MEDS: AZTREONAM 1 GM in DEXTROSE 5% 50 ML IVPB SCH (20:34)
[2019-02-03] MEDS: TERAZOSIN 5 MG CAP NGT SCH (20:34)
[2019-02-03] MEDS: LATANOPROST 0.005% 2.5 ML OPH BOTH EYES SCH (20:36)
[2019-02-03] MEDS: INSULIN GLARGINE [LANTus] (100 UNITS/ML) SYG SC SCH (20:39)
[2019-02-04] VITALS (25 sets, daily range): BP systolic 100–149; BP diastolic 37–99; PULSE 80–110; RESP 10–37
[2019-02-04] MEDS: ACCU-CHEK XX SCH ×6 (01:00→21:00)
[2019-02-04] MEDS: INSULIN ASPART [NOVOLOG] 3 ML PEN SC SCH ×6 (01:02→21:09)
[2019-02-04] MEDS: metroNIDAZOLE 500 MG/NS (PMX) 100 ML IVPB SCH ×3 (06:10→21:27)
[2019-02-04] MEDS: LEVOTHYROXINE 125 MCG TAB NGT SCH (06:10)
[2019-02-04] MEDS: DEXTROSE 5% 1,000 ML IV SCH ×3 (06:10→18:50)
[2019-02-04] MEDS: LANSOPRAZOLE 30 MG CAP NGT SCH (06:10)
--- NOTE | 2019-02-04 07:01 | CONS ---
Assessment/Plan Assessment/Plan Hospital Course (Demo Recall) 88 yo male presents from [facility] for SOB and febrile 1. Severe anemia likely due to chronic disease, last work up while admitted to [facility] about a week ago was neg for GI bleeding, including EGD/colon which was done -s/p EGD and colonoscopy by Dr Frost 01/09/19 which didn't find an obvious GI etiology to explain anemia. AVM or a small lesion could be missed due to poor prep. Pt likely needs capsule endoscopy -Neg fob, elevate retic, Low iron, tibc, [place] [id number] 2. Cystic lesion along pancreas body - 4.3 cm cystic lesion along the pancreas body, enlarged since 10/10/2012 (previously 2.4 cm). 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 -CEA wnl 3. Severe gastritis 4. Hemorrhoids 5. Hital hernia 6. A fib, -eliquis was stopped 01/06 during previous admission, on ASA 7. COPD 8. HTN 9. Hypothyroidism 10. Bilateral groin cellulitis 11. Rheumatoid arthritis. 12. Diabetes mellitus. 13. Peripheral vascular disease. 14. CHF 15. 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 Sepsis secondary to pneumonia 18. Encephalopathy secondary to sepsis 19. Hypothermia 20. Coagulopathy -INR 1.77 Plan: Supportive ICU care Continue tube feeds, monitor residuals Pt will need outpatient EUS to evaluate pancreatic mass Recommend capsule endoscopy as outpatient Pt examined and plan of care discussed with Dr. Frost Consultation Date/Type/Reason Admit Date/Time Jan 17, 2019 at 15:58 Initial Consult Date 01/18/19 Requesting Provider: IVAN AKHTAR MD Date/Time of Note DATE: 02/04/19 TIME: 06:59 24 HR Interval Summary Free Text/Dictation Pt is stable in ICU. NO pressors. Tolerating tube feeds with minimal residuals. BM overnight brown/green pasty. No signs of GI bleeding noted per RN. HR 90-low 100s. Exam/Review of Systems Exam Vitals Vital Signs Date Temp Pulse Resp B/P (MAP) Pulse Ox O2 O2 Flow FiO2 Time Delivery Rate 02/04/19 96 22 123/64 99 Nasal 2.0 06:00 (83) Cannula 02/04/19 97.3 04:00 02/03/19 27 03:00 Intake and Output 02/03/19 02/03/19 02/04/19 1515:00 23:00 07:00 IntakeIntake Total 1170 ml 1290 ml 870 ml OutputOutput Total 285 ml 1190 ml 315 ml BalanceBalance 885 ml 100 ml 555 ml Constitutional: alert Psych: no complaints Head: normocephalic Eyes: nl sclera ENMT: mucosa pink and moist Respiratory: other (diminshed breath sounds in RLL) Cardiovascular: regular rate and rhythm Gastrointestinal: soft, non-tender, bowel sounds Neurological: lethargic Skin: other (skin is peeling off) Results Result Diagram: 02/04/19 0430 02/04/19 0430 Results 24hrs Laboratory Tests Test 02/03/19 08:12 02/03/19 13:33 02/03/19 17:18 02/03/19 18:20 Bedside Glucose 92 171 228 H Sodium Level 159 H Potassium Level 4.3 Chloride Level 123 H Carbon Dioxide Level 33 H Anion Gap 3 L Blood Urea Nitrogen 66 H Creatinine 1.57 H Est Glomerular Filtrat Rate mL/min Glucose Level 186 # Calcium Level 7.2 L Test 02/03/19 20:33 02/04/19 01:00 02/04/19 04:30 02/04/19 04:46 Bedside Glucose 223 H 142 113 White Blood Count 32.2 H Red Blood Count 2.44 L Hemoglobin 7.2 L Hematocrit 23.1 L Mean Corpuscular 94.7 Volume Mean Corpuscular 29.5 Hemoglobin Mean Corpuscular 31.2 L Hemoglobin Concent Red Cell 18.6 H Distribution Width Platelet Count 106 L Mean Platelet Volume 13.5 H Immature 1.900 H Granulocytes % Neutrophils % 88.1 H Lymphocytes % 8.1 L Monocytes % 1.5 Eosinophils % 0.2 Basophils % 0.2 Nucleated Red Blood 1.1 H Cells % Immature 0.600 H Granulocytes # Neutrophils # 28.4 H Lymphocytes # 2.6 Monocytes # 0.5 Eosinophils # 0.1 Basophils # 0.1 Nucleated Red Blood 0.4 H Cells # Sodium Level 160 H Potassium Level 3.5 Chloride Level 124 H Carbon Dioxide Level 35 H Anion Gap 1 L Blood Urea Nitrogen 67 H Creatinine 1.59 H Est Glomerular Filtrat Rate mL/min Glucose Level 92 # Calcium Level 7.4 L Phosphorus Level 1.7 L Magnesium Level 1.8 Procalcitonin 0.46 H Medications Medication Current Medications Lactulose (Enulose) 20 gm DAILY PRN PO CONSTIPATION; Start 01/17/19 at 18:17 Acetaminophen (Tylenol Tab) 650 mg Q4H PRN PO PAIN Last administered on 01/23/19at 22:48; Admin Dose 650 MG; Start 01/17/19 at 18:17 Miscellaneous Information (Pending [facility] Order For Wound Care) This patient ramirez... PRN PRN XX WOUND CARE; Start 01/17/19 at 18:17 Albuterol/ Ipratropium (Duoneb) 3 ml Q2H RESP THERAPY PRN HHN SHORTNESS OF BREATH; Start 01/17/19 at 18:17 Bisacodyl (Dulcolax) 10 mg BID PRN PO CONSTIPATION; Start 01/17/19 at 18:17; Status Hold Folic Acid (Folic Acid) 1 mg DAILY PO Last administered on 02/03/19at 08:13; Admin Dose 1 MG; Start 01/17/19 at 18:17 Latanoprost (Xalatan) 1 drop HS BOTH EYES Last administered on 02/03/19at 20:36; Admin Dose 1 DROP; Start 01/17/19 at 18:17 Nitroglycerin (Nitroglycerin (Sl Tab) 0.4 Mg) 0.4 tab Q5M PRN SL CHEST PAIN; Start 01/17/19 at 18:17 Nystatin (Nystatin Powder) 1 applic BID TOP Last administered on 02/03/19at 20:35; Admin Dose 1 APPLIC; Start 01/17/19 at 18:17 IV Flush (NS 3 ml) 3 ml PER PROTOCOL IV ; Start 01/17/19 at 18:17 Miscellaneous Information 1 ea NOTE XX ; Start 01/17/19 at 18:17 Glucose (Glutose) 15 gm Q15M PRN PO DECREASED GLUCOSE; Start 01/17/19 at 18:17 Glucose (Glutose) 22.5 gm Q15M PRN PO DECREASED GLUCOSE; Start 01/17/19 at 18:17 Dextrose (D50w Syringe) 25 ml Q15M PRN IV DECREASED GLUCOSE; Start 01/17/19 at 18:17 Dextrose (D50w Syringe) 50 ml Q15M PRN IV DECREASED GLUCOSE; Start 01/17/19 at 18:17 Glucagon (Glucagen) 1 mg Q15M PRN IM DECREASED GLUCOSE; Start 01/17/19 at 18:17 Glucose (Glutose) 15 gm Q15M PRN BUCCAL DECREASED GLUCOSE; Start 01/17/19 at 18:17 Zinc Sulfate (Zinc Sulfate) 220 mg DAILY PO Last administered on 02/03/19 08:00; Admin Dose 220 MG; Start 01/17/19 at 18:17 Ascorbic Acid (Vitamin C) 250 mg DAILY PO Last administered on 02/03/19 08:13; Admin Dose 250 MG; Start 01/17/19 at 18:17 Multi-Ingredient Ointment (Aquaphor Oint 52.5 Gm) 1 applic BID TOP Last administered on 02/03/19 20:36; Admin Dose 1 APPLIC; Start 01/17/19 at 18:17 Bisacodyl (Dulcolax Supp) 10 mg DAILY PRN [place] CONSTIPATION; Start 01/17/19 at 18:17 Zinc Acetate/ Diphenhydramine (Benadryl 2% Cr) 1 applic Q6H PRN TOP ITCHING Last administered on 01/26/19 07:54; Admin Dose 1 APPLIC; Start 01/19/19 at 16:37 IV Flush (NS 10 ml) 10 ml PRN PRN IV IV PROTOCOL; Start 01/20/19 at 14:30 Cyanocobalamin (Vitamin B12 Inj) 1,000 mcg Q7D IM Last administered on 02/03/19 08:14; Admin Dose 1,000 MCG; Start 02/03/19 at 09:00 Metoprolol Tartrate (Lopressor) 5 mg Q4H PRN IV HR>110 Hold SBP<100; Start 01/26/19 at 14:30 Vancomycin HCl (Vanco Iv Per Pharmacy) VANCOMYCIN PER PHARMACY PER PROTOCOL XX ; Start 01/27/19 at 12:00 Enoxaparin Sodium (Lovenox) 60 mg DAILY SC Last administered on 02/03/19 08:06; Admin Dose 60 MG; Start 01/28/19 at 09:00 Lorazepam (Ativan) 1 mg Q2 PRN IV SEIZURES Last administered on 02/02/19 09:18; Admin Dose 1 MG; Start 01/27/19 at 14:00 Metronidazole 100 ml @ 100 mls/hr Q8 IVPB Last administered on 02/04/19 06:10; Admin Dose 100 MLS/HR; Start 01/27/19 at 15:00 Atorvastatin Calcium (Lipitor) 40 mg QHS NGT Last administered on 02/03/19 20:34; Admin Dose 40 MG; Start 01/28/19 at 21:00 Docusate Sodium (Colace Liquid Cup) 100 mg BID NGT ; Start 01/27/19 at 22:00; Status Hold Terazosin HCl (Hytrin) 10 mg HS NGT Last administered on 02/03/19 20:34; Admin Dose 10 MG; Start 01/28/19 at 21:00 Levetiracetam 100 ml @ 400 mls/hr Q12 IVPB Last administered on 02/03/19 20:34; Admin Dose 400 MLS/HR; Start 01/28/19 at 09:00 Levothyroxine Sodium (Synthroid) 125 mcg BEFORE BREAKFAST NGT Last admi nistered on 02/04/19 06:10; Admin Dose 125 MCG; Start 01/28/19 at 07:00 Ferrous Sulfate (Feosol Liquid Cup) 300 mg WITH MEALS GTB Last administered on 02/03/19 18:10; Admin Dose 300 MG; Start 01/28/19 at 11:30 Multivitamins (Multivitamin) 30 ml DAILY GTB Last administered on 02/03/19 08:00; Admin Dose 30 ML; Start 01/28/19 at 11:00 Lansoprazole (Prevacid) 30 mg DAILY@06 NGT Last administered on 02/04/19 06:10; Admin Dose 30 MG; Start 01/28/19 at 11:00 Diagnostic Test (Pha) (Accu-Chek) 1 ea Q4 XX Last administered on 02/03/19 17:00; Admin Dose 1 EA; Start 01/28/19 at 13:00 Nystatin/ Triamcinolone Acetonide (Mycolog Oint) 1 applic BID TOP Last administered on 02/03/19 20:35; Admin Dose 1 APPLIC; Start 01/28/19 at 22:30 Insulin Aspart (Novolog Insulin Pen) NOVOLOG *MILD* ALGORI... Q4 SC Last administered on 02/04/19 01:02; Admin Dose 1 UNIT; Start 01/29/19 at 05:00 Albuterol/ Ipratropium (Duoneb) 3 ml Q6HWA RESP THERAPY HHN Last administered on 02/03/19 20:27; Admin Dose 3 ML; Start 01/29/19 at 14:00 Epoetin Dae-epbx (RETACRIT(non-esrd)) 40,000 unit Mo@1700 SC Last administered on 02/03/19 18:12; Admin Dose 40,000 UNIT; Start 02/03/19 at 17:00 Mupirocin (Bactroban) 1 applic BID TOP Last administered on 02/03/19 20:35; Admin Dose 1 APPLIC; Start 01/30/19 at 15:26; Stop 02/09/19 at 15:25 Tobramycin Sulfate/Sodium Chloride (Nilesh Inhal) 300 mg BID RESP THERAPY NEB Last administered on 02/03/19 20:27; Admin Dose 300 MG; Start 01/30/19 at 20:00 Insulin Glargine (Lantus) 10 units DAILY@2000 SC Last administered on 02/03/19 20:39; Admin Dose 10 UNITS; Start 01/31/19 at 20:00 Potassium Chloride (Potassium Chloride Pwd/Soln) 20 meq TID NGT Last administered on 02/03/19 20:34; Admin Dose 20 MEQ; Start 02/02/19 at 09:00 Methylprednisolone Sodium Succinate (Solu-Medrol) 40 mg DAILY IV Last administered on 02/03/19 08:13; Admin Dose 40 MG; Start 02/03/19 at 09:00 Insulin Human NPH (Humulin N) 3 unit DAILY SC Last administered on 02/03/19 08:39; Admin Dose 3 UNIT; Start 02/03/19 at 09:00 Furosemide (Lasix) 40 mg DAILY IV ; Start 02/04/19 at 09:00 Dextrose 1,000 ml @ 50 mls/hr Q20H IV Last administered on 02/04/19 06:10; Admin Dose 50 MLS/HR; Start 02/03/19 at 11:00 Miscellaneous Information (*Rx Drug Level Order Reminder*) VANCO TROUGH ON 01/22... 1000 ONCE XX ; Start 02/04/19 at 10:00; Stop 02/04/19 at 10:01 Aztreonam 1 gm/ Dextrose 50 ml @ 100 mls/hr Q12 IVPB Last administered on 02/03/19at 20:34; Admin Dose 100 MLS/HR; Start 02/03/19 at 21:00 Vancomycin HCl 1 gm/Dextrose 250 ml @ 125 mls/hr Q48H IVPB ; Start 02/04/19 at 11:00 GISELLA VENTURA February 04, 2019 07:01
[2019-02-04] MEDS: FERROUS SULFATE 60 MG/ML 5ML CUP GTB SCH ×3 (08:45→17:09)
[2019-02-04] MEDS: ZINC SULFATE 220 MG CAP PO SCH (08:45)
[2019-02-04] MEDS: FOLIC ACID 1 MG TAB PO SCH (08:45)
[2019-02-04] MEDS: ASCORBIC ACID 250 MG TAB PO SCH (08:45)
[2019-02-04] MEDS: LEVETIRACETAM 500 MG (PMX) 100 ML IVPB SCH ×2 (08:46→21:19)
[2019-02-04] MEDS: MULTIVITAMINS 30 ML CUP GTB SCH (08:46)
[2019-02-04] MEDS: POTASSIUM CHLORIDE 20 MEQ POWDER FOR ORAL SOLN NGT SCH ×3 (08:46→20:58)
[2019-02-04] MEDS: METHYLPREDNISOLONE 40 MG INJ IV SCH (08:46)
[2019-02-04] MEDS: AZTREONAM 1 GM in DEXTROSE 5% 50 ML IVPB SCH ×2 (08:46→21:18)
[2019-02-04] MEDS: NPH, HUMAN INSULIN ISOPHANE 3ML VIAL SC SCH (08:54)
[2019-02-04] MEDS: ENOXAPARIN 60 MG/0.6 ML SYG SC SCH ×2 (08:55→09:00)
[2019-02-04] MEDS: NYSTATIN 30 GM POWDER BTL TOP SCH ×2 (08:56→21:00)
[2019-02-04] MEDS: AQUAPHOR 52.5 GM OINT TOP SCH ×2 (08:57→21:00)
[2019-02-04] MEDS: BALSAM PERU/CASTOR OIL 60 GM TUBE TOP SCH ×2 (08:57→21:00)
[2019-02-04] MEDS: NYSTATIN/TRIAMCINOLONE 15 GM OINT TOP SCH ×2 (08:57→21:00)
[2019-02-04] MEDS: MUPIROCIN 2% 22 GM OINT TOP SCH ×2 (08:58→21:00)
[2019-02-04] MEDS ORDERED: FUROSEMIDE 40 MG INJ IV SCH (09:00)
[2019-02-04] MEDS: ALBUTEROL/IPRATROPIUM (NEB) 3 ML AMP HHN SCH ×3 (09:10→20:18)
[2019-02-04] MEDS: TOBRAMYCIN/0.25NS 300 MG/5 ML INHAL NEB SCH ×2 (09:15→20:23)
--- NOTE | 2019-02-04 10:32 | PN ---
Date/Time of Note Date/Time of Note DATE: 02/04/19 TIME: 10:28 Assessment/Plan VTE Prophylaxis [place] [facility] [place] risk: 13 SCD applied ([place] [facility] [place] No SCD contraindicated: low risk/ambulating Pharmacological prophylaxis: NA/contraindicated Pharm contraindication: low risk/ambulating Lines/Catheters IV [facility] Type (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 Septic shock now on pressors likely secondary to pneumonia on levophed resolved # Hypothermia ? sepsis #. 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 Chronic renal failure likely secondary to sepsis, improved, normal creatinine #. Hypertension.currently hypotensive resolved # Impending respiratory failure # Anasarca # Hyperlipidemia. # Hypothyroidism. # Bilateral groin cellulitis more likely associated with mateus, patches in groin and axilla bilaterally. skin peeling # History of rheumatoid arthritis with joint deformities. # Diabetes type 2. # Hx of CABGx2, carotid stent #. Peripheral vascular disease. #. Chronic a.fib, now on lovenox #. right arm edema # Neoplasm per CT abdomen. 4.3 cm cystic lesion along the pancreas body, enlarged since 10/10/2012 (previously 2.4 cm). 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 # Possible allergic skin reaction ? drug present since admission> improved s/p biopsy/ Amrik Betancourt > limit results solar keratosis # hypoThermia #[facility] to [facility] # metabolic alkalosis Plan - FWF 75 q4 and change fluids to d5w incrrease rate, recheck sodium - hold lasix due to metabolic alkalosis - - cw feeding at 60 cc/hr - cw aztreonam/vanco/flagyl/tobra - cwsolumedrol to 40 - replete k phos -c w keppra - cw lovenox 60 for afib> held today - fu Neuro recs and neuro checks ? LP was refused by family -on ASA, statin - GI and DVT prophylaxsis -oncology consul dr Lorenzo aware:he said Ca 19-9 is negative indicating unlikely malignant. This may be a pseudocyst or a precancerous pancreatic lesion. It has been growing in size but patient is asymptomatic. EUS with biopsy is recommended and can either be done inpatient or outpatient setting. The patient at this time is unlikely a candidate for a Whipple surgery however. -skin care - s/p skin biopsy pending results solar elastosis > will kemar derm input - spoke ot pharmcay to change abx in d5w - opthlamology, family wants Dr Montiel pts optlamologist on case who will return from [facility]> will contact [facility] Result Diagram: 02/04/19 0430 02/04/19 0430 Results 24hrs Laboratory Tests Test 02/03/19 13:33 02/03/19 17:18 02/03/19 18:20 02/03/19 20:33 Bedside Glucose 171 228 H 223 H Sodium Level 159 H Potassium Level 4.3 Chloride Level 123 H Carbon Dioxide Level 33 H Anion Gap 3 L Blood Urea Nitrogen 66 H Creatinine 1.57 H Est Glomerular Filtrat Rate mL/min Glucose Level 186 # Calcium Level 7.2 L Test 02/04/19 01:00 02/04/19 04:30 02/04/19 04:46 02/04/19 08:53 Bedside Glucose 142 113 106 White Blood Count 32.2 H Red Blood Count 2.44 L Hemoglobin 7.2 L Hematocrit 23.1 L Mean Corpuscular 94.7 Volume Mean Corpuscular 29.5 Hemoglobin Mean Corpuscular 31.2 L Hemoglobin Concent Red Cell 18.6 H Distribution Width Platelet Count 106 L Mean Platelet Volume 13.5 H Immature 1.900 H Granulocytes % Neutrophils % 88.1 H Lymphocytes % 8.1 L Monocytes % 1.5 Eosinophils % 0.2 Basophils % 0.2 Nucleated Red Blood 1.1 H Cells % Immature 0.600 H Granulocytes # Neutrophils # 28.4 H Lymphocytes # 2.6 Monocytes # 0.5 Eosinophils # 0.1 Basophils # 0.1 Nucleated Red Blood 0.4 H Cells # Sodium Level 160 H Potassium Level 3.5 Chloride Level 124 H Carbon Dioxide Level 35 H Anion Gap 1 L Blood Urea Nitrogen 67 H Creatinine 1.59 H Est Glomerular Filtrat Rate mL/min Glucose Level 92 # Calcium Level 7.4 L Phosphorus Level 1.7 L Magnesium Level 1.8 Procalcitonin 0.46 H Subjective 24 Hr Interval Summary Free Text/Dictation pt opens eyes, follows commands swelling less Exam/Review of Systems Exam Vitals Vital Signs Date Temp Pulse Resp B/P (MAP) Pulse Ox O2 O2 Flow FiO2 Time Delivery Rate 02/04/19 94 23 111/85 100 Nasal 2.0 10:00 (94) Cannula 02/04/19 97.3 08:00 02/03/19 27 03:00 Intake and Output 02/03/19 02/03/19 02/04/19 1414:59 22:59 06:59 IntakeIntake Total 1160 ml 1190 ml 1080 ml OutputOutput Total 460 ml 1150 ml 355 ml BalanceBalance 700 ml 40 ml 725 ml Exam NG tube Constitutional: frail. answers his name his daughter's name and the month, follows directions Respiratory: diminished breath sounds Cardiovascular: regular rate and rhythm, other (afib) Gastrointestinal: soft Neurological: awake Anasarca improved Skin: diffuse dequamativ etissu Results Results 24hrs Laboratory Tests Test 02/03/19 13:33 02/03/19 17:18 02/03/19 18:20 02/03/19 20:33 Bedside Glucose 171 228 H 223 H Sodium Level 159 H Potassium Level 4.3 Chloride Level 123 H Carbon Dioxide Level 33 H Anion Gap 3 L Blood Urea Nitrogen 66 H Creatinine 1.57 H Est Glomerular Filtrat Rate mL/min Glucose Level 186 # Calcium Level 7.2 L Test 02/04/19 01:00 02/04/19 04:30 02/04/19 04:46 02/04/19 08:53 Bedside Glucose 142 113 106 White Blood Count 32.2 H Red Blood Count 2.44 L Hemoglobin 7.2 L Hematocrit 23.1 L Mean Corpuscular 94.7 Volume Mean Corpuscular 29.5 Hemoglobin Mean Corpuscular 31.2 L Hemoglobin Concent Red Cell 18.6 H Distribution Width Platelet Count 106 L Mean Platelet Volume 13.5 H Immature 1.900 H Granulocytes % Neutrophils % 88.1 H Lymphocytes % 8.1 L Monocytes % 1.5 Eosinophils % 0.2 Basophils % 0.2 Nucleated Red Blood 1.1 H Cells % Immature 0.600 H Granulocytes # Neutrophils # 28.4 H Lymphocytes # 2.6 Monocytes # 0.5 Eosinophils # 0.1 Basophils # 0.1 Nucleated Red Blood 0.4 H Cells # Sodium Level 160 H Potassium Level 3.5 Chloride Level 124 H Carbon Dioxide Level 35 H Anion Gap 1 L Blood Urea Nitrogen 67 H Creatinine 1.59 H Est Glomerular Filtrat Rate mL/min Glucose Level 92 # Calcium Level 7.4 L Phosphorus Level 1.7 L Magnesium Level 1.8 Procalcitonin 0.46 H Medications Medication Current Medications Lactulose (Enulose) 20 gm DAILY PRN PO CONSTIPATION; Start 01/17/19 at 18:17 Acetaminophen (Tylenol Tab) 650 mg Q4H PRN PO PAIN Last administered on 01/23/19at 22:48; Admin Dose 650 MG; Start 01/17/19 at 18:17 Miscellaneous Information (Pending [facility] Order For Wound Care) This patient ramirez... PRN PRN XX WOUND CARE; Start 01/17/19 at 18:17 Albuterol/ Ipratropium (Duoneb) 3 ml Q2H RESP THERAPY PRN HHN SHORTNESS OF BREATH; Start 01/17/19 at 18:17 Bisacodyl (Dulcolax) 10 mg BID PRN PO CONSTIPATION; Start 01/17/19 at 18:17; Status Hold Folic Acid (Folic Acid) 1 mg DAILY PO Last administered on 02/04/19at 08:45; Admin Dose 1 MG; Start 01/17/19 at 18:17 Latanoprost (Xalatan) 1 drop HS BOTH EYES Last administered on 02/03/19at 20:36; Admin Dose 1 DROP; Start 01/17/19 at 18:17 Nitroglycerin (Nitroglycerin (Sl Tab) 0.4 Mg) 0.4 tab Q5M PRN SL CHEST PAIN; Start 01/17/19 at 18:17 Nystatin (Nystatin Powder) 1 applic BID TOP Last administered on 02/04/19at 08:56; Admin Dose 1 APPLIC; Start 01/17/19 at 18:17 IV Flush (NS 3 ml) 3 ml PER PROTOCOL IV ; Start 01/17/19 at 18:17 Miscellaneous Information 1 ea NOTE XX ; Start 01/17/19 at 18:17 Glucose (Glutose) 15 gm Q15M PRN PO DECREASED GLUCOSE; Start 01/17/19 at 18:17 Glucose (Glutose) 22.5 gm Q15M PRN PO DECREASED GLUCOSE; Start 01/17/19 at 18:17 Dextrose (D50w Syringe) 25 ml Q15M PRN IV DECREASED GLUCOSE; Start 01/17/19 at 18:17 Dextrose (D50w Syringe) 50 ml Q15M PRN IV DECREASED GLUCOSE; Start 01/17/19 at 18:17 Glucagon (Glucagen) 1 mg Q15M PRN IM DECREASED GLUCOSE; Start 01/17/19 at 18:17 Glucose (Glutose) 15 gm Q15M PRN BUCCAL DECREASED GLUCOSE; Start 01/17/19 at 18:17 Zinc Sulfate (Zinc Sulfate) 220 mg DAILY PO Last administered on 02/04/19at 08:45; Admin Dose 220 MG; Start 01/17/19 at 18:17 Ascorbic Acid (Vitamin C) 250 mg DAILY PO Last administered on 02/04/19at 08:45; Admin Dose 250 MG; Start 01/17/19 at 18:17 Multi-Ingredient Ointment (Aquaphor Oint 52.5 Gm) 1 applic BID TOP Last administered on 02/04/19at 08:57; Admin Dose 1 APPLIC; Start 01/17/19 at 18:17 Bisacodyl (Dulcolax Supp) 10 mg DAILY PRN [place] CONSTIPATION; Start 01/17/19 at 18:17 Zinc Acetate/ Diphenhydramine (Benadryl 2% Cr) 1 applic Q6H PRN TOP ITCHING Last administered on 01/26/19at 07:54; Admin Dose 1 APPLIC; Start 01/19/19 at 16:37 IV Flush (NS 10 ml) 10 ml PRN PRN IV IV PROTOCOL; Start 01/20/19 at 14:30 Cyanocobalamin (Vitamin B12 Inj) 1,000 mcg Q7D IM Last administered on 02/03/19at 08:14; Admin Dose 1,000 MCG; Start 02/03/19 at 09:00 Metoprolol Tartrate (Lopressor) 5 mg Q4H PRN IV HR>110 Hold SBP<100; Start 01/26/19 at 14:30 Vancomycin HCl (Vanco Iv Per Pharmacy) VANCOMYCIN PER PHARMACY PER PROTOCOL XX ; Start 01/27/19 at 12:00 Enoxaparin Sodium (Lovenox) 60 mg DAILY SC Last administered on 02/03/19at 08:06; Admin Dose 60 MG; Start 01/28/19 at 09:00 Lorazepam (Ativan) 1 mg Q2 PRN IV SEIZURES Last administered on 02/02/19 09:1 8; Admin Dose 1 MG; Start 01/27/19 at 14:00 Metronidazole 100 ml @ 100 mls/hr Q8 IVPB Last administered on 02/04/19 06:10; Admin Dose 100 MLS/HR; Start 01/27/19 at 15:00 Atorvastatin Calcium (Lipitor) 40 mg QHS NGT Last administered on 02/03/19 20:34; Admin Dose 40 MG; Start 01/28/19 at 21:00 Docusate Sodium (Colace Liquid Cup) 100 mg BID NGT ; Start 01/27/19 at 22:00; Status Hold Terazosin HCl (Hytrin) 10 mg HS NGT Last administered on 02/03/19 20:34; Admin Dose 10 MG; Start 01/28/19 at 21:00 Levetiracetam 100 ml @ 400 mls/hr Q12 IVPB Last administered on 02/04/19 08:46; Admin Dose 400 MLS/HR; Start 01/28/19 at 09:00 Levothyroxine Sodium (Synthroid) 125 mcg BEFORE BREAKFAST NGT Last administered on 02/04/19 06:10; Admin Dose 125 MCG; Start 01/28/19 at 07:00 Ferrous Sulfate (Feosol Liquid Cup) 300 mg WITH MEALS GTB Last administered on 02/04/19 08:45; Admin Dose 300 MG; Start 01/28/19 at 11:30 Multivitamins (Multivitamin) 30 ml DAILY GTB Last administered on 02/04/19 08:46; Admin Dose 30 ML; Start 01/28/19 at 11:00 Lansoprazole (Prevacid) 30 mg DAILY@06 NGT Last administered on 02/04/19 06:10; Admin Dose 30 MG; Start 01/28/19 at 11:00 Diagnostic Test (Pha) (Accu-Chek) 1 ea Q4 XX Last administered on 02/04/19 08:55; Admin Dose 1 EA; Start 01/28/19 at 13:00 Nystatin/ Triamcinolone Acetonide (Mycolog Oint) 1 applic BID TOP Last administered on 02/04/19 08:57; Admin Dose 1 APPLIC; Start 01/28/19 at 22:30 Insulin Aspart (Novolog Insulin Pen) NOVOLOG *MILD* ALGORI... Q4 SC Last administered on 02/04/19 01:02; Admin Dose 1 UNIT; Start 01/29/19 at 05:00 Albuterol/ Ipratropium (Duoneb) 3 ml Q6HWA RESP THERAPY HHN Last administered on 02/04/19 09:10; Admin Dose 3 ML; Start 01/29/19 at 14:00 Epoetin Dae-epbx (RETACRIT(non-esrd)) 40,000 unit Mo@1700 SC Last administered on 02/03/19 18:12; Admin Dose 40,000 UNIT; Start 02/03/19 at 17:00 Mupirocin (Bactroban) 1 applic BID TOP Last administered on 02/04/19 08:58; Admin Dose 1 APPLIC; Start 01/30/19 at 15:26; Stop 02/09/19 at 15:25 Tobramycin Sulfate/Sodium Chloride (Nilesh Inhal) 300 mg BID RESP THERAPY NEB L ast administered on 02/04/19 09:15; Admin Dose 300 MG; Start 01/30/19 at 20:00 Insulin Glargine (Lantus) 10 units DAILY@2000 SC Last administered on 02/03/19 20:39; Admin Dose 10 UNITS; Start 01/31/19 at 20:00 Potassium Chloride (Potassium Chloride Pwd/Soln) 20 meq TID NGT Last administered on 02/04/19 08:46; Admin Dose 20 MEQ; Start 02/02/19 at 09:00 Methylprednisolone Sodium Succinate (Solu-Medrol) 40 mg DAILY IV Last administered on 02/04/19 08:46; Admin Dose 40 MG; Start 02/03/19 at 09:00 Insulin Human NPH (Humulin N) 3 unit DAILY SC Last administered on 02/04/19 08:54; Admin Dose 3 UNIT; Start 02/03/19 at 09:00 Dextrose 1,000 ml @ 100 mls/hr Q10H IV Last administered on 02/04/19 06:10; Admin Dose 50 MLS/HR; Start 02/03/19 at 11:00 Aztreonam 1 gm/ Dextrose 50 ml @ 100 mls/hr Q12 IVPB Last administered on 5/14/19at 08:46; Admin Dose 100 MLS/HR; Start 02/03/19 at 21:00 Vancomycin HCl 1 gm/Dextrose 250 ml @ 125 mls/hr Q48H IVPB ; Start 02/04/19 at 11:00 Potassium Phosphate 30 mm/ Sodium Chloride 260 ml @ 65 mls/hr ONCE ONCE IVPB ; Start 02/04/19 at 10:30; Stop 02/04/19 at 14:29; Status UNV IVAN AKHTAR MD February 04, 2019 10:32
[2019-02-04] MEDS ORDERED: VANCOMYCIN 1 GM in DEXTROSE 5% 250 ML IVPB SCH (11:00)
--- NOTE | 2019-02-04 11:11 | CONS ---
Consult Date/Type/Reason Admit Date/Time Jan 17, 2019 at 15:58 Initial Consult Date 01/18/19 Type of Consult Pulmonary Requesting Provider: IVAN AKHTAR MD Date/Time of Note DATE: 02/04/19 TIME: 11:10 Subjective Continue supplemental O2 currently off vasopressors remains hemodynamically stable. No respiratory distress. Objective Vital Signs Date Temp Pulse Resp B/P (MAP) Pulse Ox O2 O2 Flow FiO2 Time Delivery Rate 02/04/19 94 23 111/85 100 Nasal 2.0 10:00 (94) Cannula 02/04/19 97.3 08:00 02/03/19 27 03:00 Intake and Output 02/03/19 02/03/19 02/04/19 1515:00 23:00 07:00 IntakeIntake Total 1170 ml 1290 ml 972 ml OutputOutput Total 285 ml 1190 ml 375 ml BalanceBalance 885 ml 100 ml 597 ml Exam GENERAL: Frail elderly gentleman comfortable at rest on nasal cannula VITAL SIGNS: per chart NECK: Supple. No JVD or lymphadenopathy. CARDIAC EXAM: S1, S2. No added sounds or murmurs. CHEST: Diminished air entry both bases ABDOMEN: Soft, nontender. No guarding or rebound. EXTREMITIES: No cyanosis, clubbing edema +2 NEUROLOGIC: Generalized weakness. Vent Setting Fraction of Inspired Oxygen pe: 27 Results/Medications Result Diagram: 02/04/19 0430 02/04/19 0430 Results 24 hrs Laboratory Tests Test 02/03/19 13:33 02/03/19 17:18 02/03/19 18:20 02/03/19 20:33 Bedside Glucose 171 228 H 223 H Sodium Level 159 H Potassium Level 4.3 Chloride Level 123 H Carbon Dioxide Level 33 H Anion Gap 3 L Blood Urea Nitrogen 66 H Creatinine 1.57 H Est Glomerular Filtrat Rate mL/min Glucose Level 186 # Calcium Level 7.2 L Test 02/04/19 01:00 02/04/19 04:30 02/04/19 04:46 02/04/19 08:53 Bedside Glucose 142 113 106 White Blood Count 32.2 H Red Blood Count 2.44 L Hemoglobin 7.2 L Hematocrit 23.1 L Mean Corpuscular 94.7 Volume Mean Corpuscular 29.5 Hemoglobin Mean Corpuscular 31.2 L Hemoglobin Concent Red Cell 18.6 H Distribution Width Platelet Count 106 L Mean Platelet Volume 13.5 H Immature 1.900 H Granulocytes % Neutrophils % 88.1 H Lymphocytes % 8.1 L Monocytes % 1.5 Eosinophils % 0.2 Basophils % 0.2 Nucleated Red Blood 1.1 H Cells % Immature 0.600 H Granulocytes # Neutrophils # 28.4 H Lymphocytes # 2.6 Monocytes # 0.5 Eosinophils # 0.1 Basophils # 0.1 Nucleated Red Blood 0.4 H Cells # Sodium Level 160 H Potassium Level 3.5 Chloride Level 124 H Carbon Dioxide Level 35 H Anion Gap 1 L Blood Urea Nitrogen 67 H Creatinine 1.59 H Est Glomerular Filtrat Rate mL/min Glucose Level 92 # Calcium Level 7.4 L Phosphorus Level 1.7 L Magnesium Level 1.8 Procalcitonin 0.46 H Test 02/04/19 10:03 Vancomycin Level 20.3 *H Trough Medications Current Medications Lactulose (Enulose) 20 gm DAILY PRN PO CONSTIPATION; Start 01/17/19 at 18:17 Acetaminophen (Tylenol Tab) 650 mg Q4H PRN PO PAIN Last administered on 01/23/19at 22:48; Admin Dose 650 MG; Start 01/17/19 at 18:17 Miscellaneous Information (Pending [facility] Order For Wound Care) This patient ramirez... PRN PRN XX WOUND CARE; Start 01/17/19 at 18:17 Albuterol/ Ipratropium (Duoneb) 3 ml Q2H RESP THERAPY PRN HHN SHORTNESS OF BREATH; Start 01/17/19 at 18:17 Bisacodyl (Dulcolax) 10 mg BID PRN PO CONSTIPATION; Start 01/17/19 at 18:17; Status Hold Folic Acid (Folic Acid) 1 mg DAILY PO Last administered on 02/04/19at 08:45; Admin Dose 1 MG; Start 01/17/19 at 18:17 Latanoprost (Xalatan) 1 drop HS BOTH EYES Last administered on 02/03/19at 20:36; Admin Dose 1 DROP; Start 01/17/19 at 18:17 Nitroglycerin (Nitroglycerin (Sl Tab) 0.4 Mg) 0.4 tab Q5M PRN SL CHEST PAIN; Start 01/17/19 at 18:17 Nystatin (Nystatin Powder) 1 applic BID TOP Last administered on 02/04/19 08:56; Admin Dose 1 APPLIC; Start 01/17/19 at 18:17 IV Flush (NS 3 ml) 3 ml PER PROTOCOL IV ; Start 01/17/19 at 18:17 Miscellaneous Information 1 ea NOTE XX ; Start 01/17/19 at 18:17 Glucose (Glutose) 15 gm Q15M PRN PO DECREASED GLUCOSE; Start 01/17/19 at 18:17 Glucose (Glutose) 22.5 gm Q15M PRN PO DECREASED GLUCOSE; Start 01/17/19 at 18:17 Dextrose (D50w Syringe) 25 ml Q15M PRN IV DECREASED GLUCOSE; Start 01/17/19 at 18:17 Dextrose (D50w Syringe) 50 ml Q15M PRN IV DECREASED GLUCOSE; Start 01/17/19 at 18:17 Glucagon (Glucagen) 1 mg Q15M PRN IM DECREASED GLUCOSE; Start 01/17/19 at 18:17 Glucose (Glutose) 15 gm Q15M PRN BUCCAL DECREASED GLUCOSE; Start 01/17/19 at 18:17 Zinc Sulfate (Zinc Sulfate) 220 mg DAILY PO Last administered on 02/04/19 08:45; Admin Dose 220 MG; Start 01/17/19 at 18:17 Ascorbic Acid (Vitamin C) 250 mg DAILY PO Last administered on 02/04/19 08:45; Admin Dose 250 MG; Start 01/17/19 at 18:17 Multi-Ingredient Ointment (Aquaphor Oint 52.5 Gm) 1 applic BID TOP Last administered on 02/04/19 08:57; Admin Dose 1 APPLIC; Start 01/17/19 at 18:17 Bisacodyl (Dulcolax Supp) 10 mg DAILY PRN [place] CONSTIPATION; Start 01/17/19 at 18:17 Zinc Acetate/ Diphenhydramine (Benadryl 2% Cr) 1 applic Q6H PRN TOP ITCHING Last administered on 01/26/19 07:54; Admin Dose 1 APPLIC; Start 01/19/19 at 16:37 IV Flush (NS 10 ml) 10 ml PRN PRN IV IV PROTOCOL; Start 01/20/19 at 14:30 Cyanocobalamin (Vitamin B12 Inj) 1,000 mcg Q7D IM Last administered on 02/03/19 08:14; Admin Dose 1,000 MCG; Start 02/03/19 at 09:00 Metoprolol Tartrate (Lopressor) 5 mg Q4H PRN IV HR>110 Hold SBP<100; Start 01/26/19 at 14:30 Vancomycin HCl (Vanco Iv Per Pharmacy) VANCOMYCIN PER PHARMACY PER PROTOCOL XX ; Start 01/27/19 at 12:00 Enoxaparin Sodium (Lovenox) 60 mg DAILY SC Last administered on 02/03/19 08:06; Admin Dose 60 MG; Start 01/28/19 at 09:00 Lorazepam (Ativan) 1 mg Q2 PRN IV SEIZURES Last administered on 02/02/19 09:18; Admin Dose 1 MG; Start 01/27/19 at 14:00 Metronidazole 100 ml @ 100 mls/hr Q8 IVPB Last administered on 02/04/19 06:10; Admin Dose 100 MLS/HR; Start 01/27/19 at 15:00 Atorvastatin Calcium (Lipitor) 40 mg QHS NGT Last administered on 02/03/19 20:34; Admin Dose 40 MG; Start 01/28/19 at 21:00 Docusate Sodium (Colace Liquid Cup) 100 mg BID NGT ; Start 01/27/19 at 22:00; Status Hold Terazosin HCl (Hytrin) 10 mg HS NGT Last administered on 02/03/19 20:34; Admin Dose 10 MG; Start 01/28/19 at 21:00 Levetiracetam 100 ml @ 400 mls/hr Q12 IVPB Last administered on 02/04/19 08:46; Admin Dose 400 MLS/HR; Start 01/28/19 at 09:00 Levothyroxine Sodium (Synthroid) 125 mcg BEFORE BREAKFAST NGT Last administered on 02/04/19 06:10; Admin Dose 125 MCG; Start 01/28/19 at 07:00 Ferrous Sulfate (Feosol Liquid Cup) 300 mg WITH MEALS GTB Last administered on 02/04/19 08:45; Admin Dose 300 MG; Start 01/28/19 at 11:30 Multivitamins (Multivitamin) 30 ml DAILY GTB Last administered on 02/04/19 08:46; Admin Dose 30 ML; Start 01/28/19 at 11:00 Lansoprazole (Prevacid) 30 mg DAILY@06 NGT Last administered on 02/04/19 06:10; Admin Dose 30 MG; Start 01/28/19 at 11:00 Diagnostic Test (Pha) (Accu-Chek) 1 ea Q4 XX Last administered on 02/04/19 08:55; Admin Dose 1 EA; Start 01/28/19 at 13:00 Nystatin/ Triamcinolone Acetonide (Mycolog Oint) 1 applic BID TOP Last administered on 02/04/19 08:57; Admin Dose 1 APPLIC; Start 01/28/19 at 22:30 Insulin Aspart (Novolog Insulin Pen) NOVOLOG *MILD* ALGORI... Q4 SC Last adm inistered on 02/04/19 01:02; Admin Dose 1 UNIT; Start 01/29/19 at 05:00 Albuterol/ Ipratropium (Duoneb) 3 ml Q6HWA RESP THERAPY HHN Last administered on 02/04/19 09:10; Admin Dose 3 ML; Start 01/29/19 at 14:00 Epoetin Dae-epbx (RETACRIT(non-esrd)) 40,000 unit Mo@1700 SC Last administered on 02/03/19 18:12; Admin Dose 40,000 UNIT; Start 02/03/19 at 17:00 Mupirocin (Bactroban) 1 applic BID TOP Last administered on 02/04/19 08:58; Admin Dose 1 APPLIC; Start 01/30/19 at 15:26; Stop 02/09/19 at 15:25 Tobramycin Sulfate/Sodium Chloride (Nilesh Inhal) 300 mg BID RESP THERAPY NEB Last administered on 02/04/19 09:15; Admin Dose 300 MG; Start 01/30/19 at 20:00 Insulin Glargine (Lantus) 10 units DAILY@2000 SC Last administered on 02/03/19 20:39; Admin Dose 10 UNITS; Start 01/31/19 at 20:00 Potassium Chloride (Potassium Chloride Pwd/Soln) 20 meq TID NGT Last administered on 02/04/19 08:46; Admin Dose 20 MEQ; Start 02/02/19 at 09:00 Methylprednisolone Sodium Succinate (Solu-Medrol) 40 mg DAILY IV Last administered on 02/04/19 08:46; Admin Dose 40 MG; Start 02/03/19 at 09:00 Insulin Human NPH (Humulin N) 3 unit DAILY SC Last administered on 02/04/19at 08:54; Admin Dose 3 UNIT; Start 02/03/19 at 09:00 Dextrose 1,000 ml @ 100 mls/hr Q10H IV Last administered on 02/04/19at 06:10; Admin Dose 50 MLS/HR; Start 02/03/19 at 11:00 Aztreonam 1 gm/ Dextrose 50 ml @ 100 mls/hr Q12 IVPB Last administered on 02/04/19at 08:46; Admin Dose 100 MLS/HR; Start 02/03/19 at 21:00 Potassium Phosphate 30 mm/ Sodium Chloride 260 ml @ 65 mls/hr ONCE ONCE IVPB ; Start 02/04/19 at 11:30; Stop 02/04/19 at 15:29 Vancomycin HCl 750 mg/Dextrose 250 ml @ 125 mls/hr Q48H IVPB ; Start 02/04/19 at 23:00 Assessment/Plan Hospital Course (Demo Recall) IMP: 1. s/p Acute hypoxemic respiratory failure likely secondary to combination of volume overload and pneumonia 2. Encephalopathy underlying dementia versus toxic metabolic, appears to be slowly improving possibly secondary to elevated sodium. 3. Valvular heart disease 4. Severe dysphagia 5. Status post septic shock likely secondary to above 6. Anemia, no active GI bleeding 7. Skin diffuse excoriating skin lesion unclear etiology not consistent with history of "red man" syndrome. or pemphigus. 8. Anemia RECS: 1. Monitor respiratory status closely. Strict aspiration precautions 2. Continue broad-spectrum antibiotics 3. Infectious work-up as per ID 4. Monitor H&H 5. Palliative care consult appreciated 6. Replete K+ and Mg 7. Increase free H20, possibly secondary to elevated sodium 8. Consider transfusion 1 unit packed red blood cells Overall prognosis remains guarded Critical care time 40 minutes Stable for transfer to telemetry DIANA MCRAE MD[facility] February 04, 2019 11:11
[2019-02-04] MEDS ORDERED: POTASSIUM PHOSPHATE 30 MM in SOD CHLORIDE 0.9% 250 ML IVPB ONE (11:30)
--- NOTE | 2019-02-04 11:46 | CONS ---
Assessment/Plan Assessment/Plan Hospital Course 88 yo M with multiple comorbidities who initially presented for evaluation of hiccups. He was noted to become acutely altered... for which neurology is consulted. He was noted to develop ams on 01/21 around 7pm and noted on 01/22 to be unresponsive... prompting a code stroke activation. The clinical picture suggests an acute toxic-metabolic encephalopathy.. Meningoencephalitis is, though, not yet excluded. MRI brain is without acute ischemia, though notable for chronic infarcts. 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 On 02/03, the pt was again transferred to ICU for hypothermia. P: Cont Keppra 500 BID for now Ativan IV PRN prolonged seizure (> 5 min) Agree w/ ASA/Lipitor daily pending the above Limit sedating medications where possible Other medical management per primary Will follow clinically Consultation Date/Type/Reason Admit Date/Time Jan 17, 2019 at 15:58 Type of Consult Neurology Reason for Consultation ams; eval for stroke Requesting Provider: IVAN AKHTAR MD Date/Time of Note DATE: 02/04/19 TIME: 11:45 24 HR Interval Summary Free Text/Dictation Continues critical care. Exam Vital Signs Vitals Vital Signs Date Temp Pulse Resp B/P (MAP) Pulse Ox O2 O2 Flow FiO2 Time Delivery Rate 02/04/19 94 23 111/85 100 Nasal 2.0 10:00 (94) Cannula 02/04/19 97.3 08:00 02/03/19 27 03:00 Intake and Output 02/03/19 02/03/19 02/04/19 1515:00 23:00 07:00 IntakeIntake Total 1170 ml 1290 ml 972 ml OutputOutput Total 285 ml 1190 ml 375 ml BalanceBalance 885 ml 100 ml 597 ml Exam PE: Gen Appearance: No Apparent Distress HEENT: Normocephalic; on nasal cannula Cardiovascular: Regular rate Abdomen: Soft Extremities: Dry, skin peeling NE: The patient was asleep, though easily arousable. Sparsely verbal. Unable to track. Follows simple appendicular commands. Cranial nerve examination was limited by mental status. Pupils were equal and reactive to light. There was no afferent pupillary defect. Funduscopic examination was limited. Face was grossly symmetric. Tone was normal. Muscle bulk was normal. I did not see fasciculations. The patient was generally weak, though antigravity in his L arm. Coordination and gait testing was limited by mental status. Arm and leg reflexes were within normal limits and symmetric. Gray's sign was absent. Plantar responses were flexor. NEGRA CORONA NP February 04, 2019 11:46
--- NOTE | 2019-02-04 11:48 | CONS ---
Consult Date/Type/Reason Admit Date/Time Jan 17, 2019 at 15:58 Initial Consult Date Type of Consultation: Pulm/CCM Requesting Provider: IVAN AKHTAR MD Date/Time of Note DATE: 02/04/19 TIME: 11:45 Subjective More alert - no CP - BOP stable - hydrated at 100 cc / hr - reasonable urine output now- will monitor clinically, ROS: No fever, no chills, no nausea, no vomiting, no diarrhea/constipation PER Nurse + chronic SOB Objective Vitals Vital Signs Date Temp Pulse Resp B/P (MAP) Pulse Ox O2 O2 Flow FiO2 Time Delivery Rate 02/04/19 94 23 111/85 100 Nasal 2.0 10:00 (94) Cannula 02/04/19 97.3 08:00 02/03/19 27 03:00 Intake and Output 02/03/19 02/03/19 02/04/19 1515:00 23:00 07:00 IntakeIntake Total 1170 ml 1290 ml 972 ml OutputOutput Total 285 ml 1190 ml 375 ml BalanceBalance 885 ml 100 ml 597 ml Results/Medications Result Diagram: 02/04/19 0430 02/04/19 0430 Results 24 hrs Laboratory Tests Test 02/03/19 13:33 02/03/19 17:18 02/03/19 18:20 02/03/19 20:33 Bedside Glucose 171 228 H 223 H Sodium Level 159 H Potassium Level 4.3 Chloride Level 123 H Carbon Dioxide Level 33 H Anion Gap 3 L Blood Urea Nitrogen 66 H Creatinine 1.57 H Est Glomerular Filtrat Rate mL/min Glucose Level 186 # Calcium Level 7.2 L Test 02/04/19 01:00 02/04/19 04:30 02/04/19 04:46 02/04/19 08:53 Bedside Glucose 142 113 106 White Blood Count 32.2 H Red Blood Count 2.44 L Hemoglobin 7.2 L Hematocrit 23.1 L Mean Corpuscular 94.7 Volume Mean Corpuscular 29.5 Hemoglobin Mean Corpuscular 31.2 L Hemoglobin Concent Red Cell 18.6 H Distribution Width Platelet Count 106 L Mean Platelet Volume 13.5 H Immature 1.900 H Granulocytes % Neutrophils % 88.1 H Lymphocytes % 8.1 L Monocytes % 1.5 Eosinophils % 0.2 Basophils % 0.2 Nucleated Red Blood 1.1 H Cells % Immature 0.600 H Granulocytes # Neutrophils # 28.4 H Lymphocytes # 2.6 Monocytes # 0.5 Eosinophils # 0.1 Basophils # 0.1 Nucleated Red Blood 0.4 H Cells # Sodium Level 160 H Potassium Level 3.5 Chloride Level 124 H Carbon Dioxide Level 35 H Anion Gap 1 L Blood Urea Nitrogen 67 H Creatinine 1.59 H Est Glomerular Filtrat Rate mL/min Glucose Level 92 # Calcium Level 7.4 L Phosphorus Level 1.7 L Magnesium Level 1.8 Procalcitonin 0.46 H Test 02/04/19 10:03 Vancomycin Level 20.3 *H Trough Home Meds Active Scripts Apixaban* (Eliquis*) 5 Mg Tablet, 2.5 MG PO BID for 30 Days, TAB Prov:IVAN AKHTAR MD 12/20/18 Metoprolol Tartrate* (Lopressor*) 50 Mg Tab, 50 MG PO BID for 30 Days, TAB Prov:COOPER CARO 12/20/18 Reported Medications Furosemide* (Lasix*) 20 Mg Tablet, 20 MG PO BID, TAB 01/05/19 Polyethylene Glycol* (Miralax*) 17 Gm Powd.pack, 17 GM PO DAILY, #30 PACKET 12/15/18 Nifedipine* (Nifedipine ER*) 60 Mg Tablet.sa, 60 MG PO DAILY, TAB.SA 12/15/18 Bisacodyl* (Bisacodyl*) 5 Mg Tablet.dr, 10 MG PO BID PRN for CONSTIPATION, TAB 12/15/18 Pregabalin* (Lyrica*) 25 Mg Capsule, 25 MG PO TID, CAP 12/15/18 Bimatoprost* (Lumigan*) 0.01%-5 Ml Opht Drops, 1 DROP BOTH EYES HS, EA 03/02/18 Cetirizine Hcl* (Cetirizine Hcl*) 10 Mg Tablet, 10 MG PO DAILY, #30 TAB 03/02/18 Insulin Glargine* (Lantus*) 100 Unit/Ml Soln, 10 UNIT SC QHS, #1 VIAL 03/02/18 Ergocalciferol (Vitamin D2) (VITAMIN D2) 2,000 Unit Tablet, 2000 UNIT PO DAILY, TAB 03/02/18 Famotidine* (Famotidine*) 20 Mg Tablet, 20 MG PO DAILY, #30 TAB 03/02/18 Ferrous Sulfate* (Ferrous Sulfate*) 325 Mg Tabec, 325 MG PO BID, TAB 03/02/18 Nitroglycerin* (Nitrostat*) 0.4 Mg Tab.subl, 0.4 MG SL Q5MIN PRN for CHEST PAIN, BOTTLE 03/02/18 Terazosin Hcl* (Terazosin Hcl*) 10 Mg Capsule, 10 MG PO HS, CAP 03/02/18 Levothyroxine Sodium* (Levoxyl*) 125 Mcg Tablet, 125 MCG PO BEFORE BREAKFAST, #30 TAB 03/02/18 Allopurinol* (Allopurinol*) 100 Mg Tablet, 100 MG PO BID, TAB 03/02/18 Atorvastatin* (Atorvastatin*) 40 Mg Tablet, 40 MG PO QHS, #30 TAB 03/02/18 Folic Acid* (Folic Acid*) 1 Mg Tablet, 1 MG PO DAILY, TAB 03/02/18 Medications Current Medications Lactulose (Enulose) 20 gm DAILY PRN PO CONSTIPATION; Start 01/17/19 at 18:17 Acetaminophen (Tylenol Tab) 650 mg Q4H PRN PO PAIN Last administered on 01/23/19at 22:48; Admin Dose 650 MG; Start 01/17/19 at 18:17 Miscellaneous Information (Pending [facility] Order For Wound Care) This patient ramirez... PRN PRN XX WOUND CARE; Start 01/17/19 at 18:17 Albuterol/ Ipratropium (Duoneb) 3 ml Q2H RESP THERAPY PRN HHN SHORTNESS OF BREATH; Start 01/17/19 at 18:17 Bisacodyl (Dulcolax) 10 mg BID PRN PO CONSTIPATION; Start 01/17/19 at 18:17; Status Hold Folic Acid (Folic Acid) 1 mg DAILY PO Last administered on 02/04/19at 08:45; Admin Dose 1 MG; Start 01/17/19 at 18:17 Latanoprost (Xalatan) 1 drop HS BOTH EYES Last administered on 02/03/19at 20:36; Admin Dose 1 DROP; Start 01/17/19 at 18:17 Nitroglycerin (Nitroglycerin (Sl Tab) 0.4 Mg) 0.4 tab Q5M PRN SL CHEST PAIN; Start 01/17/19 at 18:17 Nystatin (Nystatin Powder) 1 applic BID TOP Last administered on 02/04/19 08:56; Admin Dose 1 APPLIC; Start 01/17/19 at 18:17 IV Flush (NS 3 ml) 3 ml PER PROTOCOL IV ; Start 01/17/19 at 18:17 Miscellaneous Information 1 ea NOTE XX ; Start 01/17/19 at 18:17 Glucose (Glutose) 15 gm Q15M PRN PO DECREASED GLUCOSE; Start 01/17/19 at 18:17 Glucose (Glutose) 22.5 gm Q15M PRN PO DECREASED GLUCOSE; Start 01/17/19 at 18:17 Dextrose (D50w Syringe) 25 ml Q15M PRN IV DECREASED GLUCOSE; Start 01/17/19 at 18:17 Dextrose (D50w Syringe) 50 ml Q15M PRN IV DECREASED GLUCOSE; Start 01/17/19 at 18:17 Glucagon (Glucagen) 1 mg Q15M PRN IM DECREASED GLUCOSE; Start 01/17/19 at 18:17 Glucose (Glutose) 15 gm Q15M PRN BUCCAL DECREASED GLUCOSE; Start 01/17/19 at 18:17 Zinc Sulfate (Zinc Sulfate) 220 mg DAILY PO Last administered on 02/04/19 08:45; Admin Dose 220 MG; Start 01/17/19 at 18:17 Ascorbic Acid (Vitamin C) 250 mg DAILY PO Last administered on 02/04/19 08:45; Admin Dose 250 MG; Start 01/17/19 at 18:17 Multi-Ingredient Ointment (Aquaphor Oint 52.5 Gm) 1 applic BID TOP Last administered on 02/04/19 08:57; Admin Dose 1 APPLIC; Start 01/17/19 at 18:17 Bisacodyl (Dulcolax Supp) 10 mg DAILY PRN [place] CONSTIPATION; Start 01/17/19 at 18:17 Zinc Acetate/ Diphenhydramine (Benadryl 2% Cr) 1 applic Q6H PRN TOP ITCHING Last administered on 01/26/19 07:54; Admin Dose 1 APPLIC; Start 01/19/19 at 16:37 IV Flush (NS 10 ml) 10 ml PRN PRN IV IV PROTOCOL; Start 01/20/19 at 14:30 Cyanocobalamin (Vitamin B12 Inj) 1,000 mcg Q7D IM Last administered on 02/03/19 08:14; Admin Dose 1,000 MCG; Start 02/03/19 at 09:00 Metoprolol Tartrate (Lopressor) 5 mg Q4H PRN IV HR>110 Hold SBP<100; Start 01/26/19 at 14:30 Vancomycin HCl (Vanco Iv Per Pharmacy) VANCOMYCIN PER PHARMACY PER PROTOCOL XX ; Start 01/27/19 at 12:00 Enoxaparin Sodium (Lovenox) 60 mg DAILY SC Last administered on 02/03/19 08:06; Admin Dose 60 MG; Start 01/28/19 at 09:00 Lorazepam (Ativan) 1 mg Q2 PRN IV SEIZURES Last administered on 02/02/19 09:18; Admin Dose 1 MG; Start 01/27/19 at 14:00 Metronidazole 100 ml @ 100 mls/hr Q8 IVPB Last administered on 02/04/19 06:10; Admin Dose 100 MLS/HR; Start 01/27/19 at 15:00 Atorvastatin Calcium (Lipitor) 40 mg QHS NGT Last administered on 02/03/19 20:34; Admin Dose 40 MG; Start 01/28/19 at 21:00 Docusate Sodium (Colace Liquid Cup) 100 mg BID NGT ; Start 01/27/19 at 22:00; Status Hold Terazosin HCl (Hytrin) 10 mg HS NGT Last administered on 02/03/19 20:34; Admin Dose 10 MG; Start 01/28/19 at 21:00 Levetiracetam 100 ml @ 400 mls/hr Q12 IVPB Last administered on 02/04/19 08:4 6; Admin Dose 400 MLS/HR; Start 01/28/19 at 09:00 Levothyroxine Sodium (Synthroid) 125 mcg BEFORE BREAKFAST NGT Last administered on 02/04/19 06:10; Admin Dose 125 MCG; Start 01/28/19 at 07:00 Ferrous Sulfate (Feosol Liquid Cup) 300 mg WITH MEALS GTB Last administered on 02/04/19 08:45; Admin Dose 300 MG; Start 01/28/19 at 11:30 Multivitamins (Multivitamin) 30 ml DAILY GTB Last administered on 02/04/19 08:46; Admin Dose 30 ML; Start 01/28/19 at 11:00 Lansoprazole (Prevacid) 30 mg DAILY@06 NGT Last administered on 02/04/19 06:10; Admin Dose 30 MG; Start 01/28/19 at 11:00 Diagnostic Test (Pha) (Accu-Chek) 1 ea Q4 XX Last administered on 02/04/19 08:55; Admin Dose 1 EA; Start 01/28/19 at 13:00 Nystatin/ Triamcinolone Acetonide (Mycolog Oint) 1 applic BID TOP Last administered on 02/04/19 08:57; Admin Dose 1 APPLIC; Start 01/28/19 at 22:30 Insulin Aspart (Novolog Insulin Pen) NOVOLOG *MILD* ALGORI... Q4 SC Last administered on 02/04/19 01:02; Admin Dose 1 UNIT; Start 01/29/19 at 05:00 Albuterol/ Ipratropium (Duoneb) 3 ml Q6HWA RESP THERAPY HHN Last administered on 02/04/19 09:10; Admin Dose 3 ML; Start 01/29/19 at 14:00 Epoetin Dae-epbx (RETACRIT(non-esrd)) 40,000 unit Mo@1700 SC Last administered on 02/03/19 18:12; Admin Dose 40,000 UNIT; Start 02/03/19 at 17:00 Mupirocin (Bactroban) 1 applic BID TOP Last administered on 02/04/19 08:58; Admin Dose 1 APPLIC; Start 01/30/19 at 15:26; Stop 02/09/19 at 15:25 Tobramycin Sulfate/Sodium Chloride (Nilesh Inhal) 300 mg BID RESP THERAPY NEB Last administered on 02/04/19 09:15; Admin Dose 300 MG; Start 01/30/19 at 20:00 Insulin Glargine (Lantus) 10 units DAILY@2000 SC Last administered on 02/03/19 20:39; Admin Dose 10 UNITS; Start 01/31/19 at 20:00 Potassium Chloride (Potassium Chloride Pwd/Soln) 20 meq TID NGT Last administered on 02/04/19 08:46; Admin Dose 20 MEQ; Start 02/02/19 at 09:00 Methylprednisolone Sodium Succinate (Solu-Medrol) 40 mg DAILY IV Last administered on 5/14/19at 08:46; Admin Dose 40 MG; Start 02/03/19 at 09:00 Insulin Human NPH (Humulin N) 3 unit DAILY SC Last administered on 02/04/19at 08:54; Admin Dose 3 UNIT; Start 02/03/19 at 09:00 Dextrose 1,000 ml @ 100 mls/hr Q10H IV Last administered on 02/04/19at 06:10; Admin Dose 50 MLS/HR; Start 02/03/19 at 11:00 Aztreonam 1 gm/ Dextrose 50 ml @ 100 mls/hr Q12 IVPB Last administered on 02/04/19at 08:46; Admin Dose 100 MLS/HR; Start 02/03/19 at 21:00 Potassium Phosphate 30 mm/ Sodium Chloride 260 ml @ 65 mls/hr ONCE ONCE IVPB ; Start 02/04/19 at 11:30; Stop 02/04/19 at 15:29 Vancomycin HCl 750 mg/Dextrose 250 ml @ 125 mls/hr Q48H IVPB ; Start 02/04/19 at 23:00 Assessment/Plan Hospital Course (Demo Recall) 1. Atrial fibrillation, currently rate controlled.-off systemic anticoagulation due to anemia. On ASA only now - RATE CONTROLLED. now in a. fib. At 100s - will allow for now. Wll allow for now. 2. CHF - chronic, DD. EF of 60%.Spot diuresis as needed. Con't to follow. Euvolemic by exam. OK to hydrate - with improved urine output. 3. Tricuspid regurgitation, moderate by most recent echo. 4. Acute on chronic renal failure - Cr up to 1.59 - avoid nephrotoxic meds. Dr. Alatorre follow. Stable. Reasonable urine output. 5. Hyponatremia - going up to 160s - check am cortisol level. 5. Possible pneumonia - on anti-bx now. ID follows On pressors now. 6. History of coronary artery disease, status post coronary artery bypass graft surgery. Treated. 7. Dyslipidemia. 8. Rheumatoid arthritis - Rx per rheumatology. 9. Groin cellulitis. 10. Anemia-worsening again today requiring transfusions PRBC's.Now post-op s/p endoscopy ? findings - H/H at 6.4 - blood Rx to follow,trending down again 8.4 and gain 7.9 - now down again 7.2 - will check with PMD if blood tx would be tony sonable. 11. Diabetes mellitus. 12. Sepsis - skin looks better. LOU PATINO MD February 04, 2019 11:48
--- NOTE | 2019-02-04 14:14 | CONS ---
Assessment/Plan Assessment/Plan Hospital Course (Demo Recall) No acute events overnight patient looks comfortable, no fevers WBC 32.2 platelets 106 neutrophils 88.1, BUN 67 creatinine 1.59 Wound culture grew Corynebacterium species. Sputum culture grew E. coli Antimicrobials: Vancomycin, aztreonam, Flagyl, tobramycin inhalation Indwelling: Left subclavian triple-lumen catheter, Wade catheter, NG tube Allergy: Penicillin, sulfa Physical examination: Obese well-developed chronically ill-appearing - [place] man who is lethargic, in no distress. Head atraumatic normocephalic sclera nonicteric. Neck is supple chest rise symmetrical breath sounds diminished bases. Heart: S1-S2. Abdomen obese soft bowel sounds present extremities without cyanosis, bilateral edema Assessment: 1. Severe sepsis s/p shock 2. Acute encephalopathy 3. Seizures 4. Healthcare acquired, possible aspiration pneumonia 5. Coronary artery disease/history of CABG 6. Advanced rheumatoid arthritis 5. Chronic atrial fibrillation 6. Diabetes 7. BPH 9. Acute on chronic anemia===> s/p EGD/colonoscopy 01/09/19 10. Status post right epididymitis 11. Pancreatic lesion per CT, unlikely neoplasm per oncology notes 12. 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, s/p punch bx Plan: Clinically unchanged, continue present care, antibiotics, aspiration precautions, follow skin biopsy results Discussed with RN Consultation Date/Type/Reason Admit Date/Time Jan 17, 2019 at 15:58 Initial Consult Date 01/18/19 Type of Consult id Requesting Provider: IVAN AKHTAR MD Date/Time of Note DATE: 02/04/19 TIME: 14:12 Exam/Review of Systems Exam Vitals Vital Signs Date Temp Pulse Resp B/P (MAP) Pulse Ox O2 O2 Flow FiO2 Time Delivery Rate 02/04/19 97.4 93 37 116/48 100 Nasal 2.0 12:00 (70) Cannula 02/03/19 27 03:00 Intake and Output 02/03/19 02/03/19 02/04/19 1515:00 23:00 07:00 IntakeIntake Total 1170 ml 1290 ml 972 ml OutputOutput Total 285 ml 1190 ml 375 ml BalanceBalance 885 ml 100 ml 597 ml Results Result Diagram: 02/04/19 0430 02/04/19 0430 Results 24hrs Laboratory Tests Test 02/03/19 17:18 02/03/19 18:20 02/03/19 20:33 02/04/19 01:00 Sodium Level 159 H Potassium Level 4.3 Chloride Level 123 H Carbon Dioxide Level 33 H Anion Gap 3 L Blood Urea Nitrogen 66 H Creatinine 1.57 H Est Glomerular Filtrat Rate mL/min Glucose Level 186 # Calcium Level 7.2 L Bedside Glucose 228 H 223 H 142 Test 02/04/19 04:30 02/04/19 04:46 02/04/19 08:53 02/04/19 10:03 White Blood Count 32.2 H Red Blood Count 2.44 L Hemoglobin 7.2 L Hematocrit 23.1 L Mean Corpuscular 94.7 Volume Mean Corpuscular 29.5 Hemoglobin Mean Corpuscular 31.2 L Hemoglobin Concent Red Cell 18.6 H Distribution Width Platelet Count 106 L Mean Platelet Volume 13.5 H Immature 1.900 H Granulocytes % Neutrophils % 88.1 H Lymphocytes % 8.1 L Monocytes % 1.5 Eosinophils % 0.2 Basophils % 0.2 Nucleated Red Blood 1.1 H Cells % Immature 0.600 H Granulocytes # Neutrophils # 28.4 H Lymphocytes # 2.6 Monocytes # 0.5 Eosinophils # 0.1 Basophils # 0.1 Nucleated Red Blood 0.4 H Cells # Sodium Level 160 H Potassium Level 3.5 Chloride Level 124 H Carbon Dioxide Level 35 H Anion Gap 1 L Blood Urea Nitrogen 67 H Creatinine 1.59 H Est Glomerular Filtrat Rate mL/min Glucose Level 92 # Calcium Level 7.4 L Phosphorus Level 1.7 L Magnesium Level 1.8 Procalcitonin 0.46 H Bedside Glucose 113 106 Vancomycin Level 20.3 *H Trough Test 02/04/19 13:01 Bedside Glucose 219 Medications Medication Current Medications Lactulose (Enulose) 20 gm DAILY PRN PO CONSTIPATION; Start 01/17/19 at 18:17 Acetaminophen (Tylenol Tab) 650 mg Q4H PRN PO PAIN Last administered on 01/23/19at 22:48; Admin Dose 650 MG; Start 01/17/19 at 18:17 Miscellaneous Information (Pending [facility] Order For Wound Care) This patient ramirez... PRN PRN XX WOUND CARE; Start 01/17/19 at 18:17 Albuterol/ Ipratropium (Duoneb) 3 ml Q2H RESP THERAPY PRN HHN SHORTNESS OF BREATH; Start 01/17/19 at 18:17 Bisacodyl (Dulcolax) 10 mg BID PRN PO CONSTIPATION; Start 01/17/19 at 18:17; Status Hold Folic Acid (Folic Acid) 1 mg DAILY PO Last administered on 02/04/19 08:45; Admin Dose 1 MG; Start 01/17/19 at 18:17 Latanoprost (Xalatan) 1 drop HS BOTH EYES Last administered on 02/03/19at 20:36; Admin Dose 1 DROP; Start 01/17/19 at 18:17 Nitroglycerin (Nitroglycerin (Sl Tab) 0.4 Mg) 0.4 tab Q5M PRN SL CHEST PAIN; Start 01/17/19 at 18:17 Nystatin (Nystatin Powder) 1 applic BID TOP Last administered on 02/04/19at 08:56; Admin Dose 1 APPLIC; Start 01/17/19 at 18:17 IV Flush (NS 3 ml) 3 ml PER PROTOCOL IV ; Start 01/17/19 at 18:17 Miscellaneous Information 1 ea NOTE XX ; Start 01/17/19 at 18:17 Glucose (Glutose) 15 gm Q15M PRN PO DECREASED GLUCOSE; Start 01/17/19 at 18:17 Glucose (Glutose) 22.5 gm Q15M PRN PO DECREASED GLUCOSE; Start 01/17/19 at 18:17 Dextrose (D50w Syringe) 25 ml Q15M PRN IV DECREASED GLUCOSE; Start 01/17/19 at 18:17 Dextrose (D50w Syringe) 50 ml Q15M PRN IV DECREASED GLUCOSE; Start 01/17/19 at 18:17 Glucagon (Glucagen) 1 mg Q15M PRN IM DECREASED GLUCOSE; Start 01/17/19 at 18:17 Glucose (Glutose) 15 gm Q15M PRN BUCCAL DECREASED GLUCOSE; Start 01/17/19 at 18:17 Zinc Sulfate (Zinc Sulfate) 220 mg DAILY PO Last administered on 02/04/19at 08:45; Admin Dose 220 MG; Start 01/17/19 at 18:17 Ascorbic Acid (Vitamin C) 250 mg DAILY PO Last administered on 02/04/19 08:45; Admin Dose 250 MG; Start 01/17/19 at 18:17 Multi-Ingredient Ointment (Aquaphor Oint 52.5 Gm) 1 applic BID TOP Last administered on 02/04/19 08:57; Admin Dose 1 APPLIC; Start 01/17/19 at 18:17 Bisacodyl (Dulcolax Supp) 10 mg DAILY PRN [place] CONSTIPATION; Start 01/17/19 at 18:17 Zinc Acetate/ Diphenhydramine (Benadryl 2% Cr) 1 applic Q6H PRN TOP ITCHING Last administered on 01/26/19 07:54; Admin Dose 1 APPLIC; Start 01/19/19 at 16:37 IV Flush (NS 10 ml) 10 ml PRN PRN IV IV PROTOCOL; Start 01/20/19 at 14:30 Cyanocobalamin (Vitamin B12 Inj) 1,000 mcg Q7D IM Last administered on 02/03/19 08:14; Admin Dose 1,000 MCG; Start 02/03/19 at 09:00 Metoprolol Tartrate (Lopressor) 5 mg Q4H PRN IV HR>110 Hold SBP<100; Start 01/26/19 at 14:30 Vancomycin HCl (Vanco Iv Per Pharmacy) VANCOMYCIN PER PHARMACY PER PROTOCOL XX ; Start 01/27/19 at 12:00 Enoxaparin Sodium (Lovenox) 60 mg DAILY SC Last administered on 02/03/19 08:06; Admin Dose 60 MG; Start 01/28/19 at 09:00 Lorazepam (Ativan) 1 mg Q2 PRN IV SEIZURES Last administered on 02/02/19 09:18; Admin Dose 1 MG; Start 01/27/19 at 14:00 Metronidazole 100 ml @ 100 mls/hr Q8 IVPB Last administered on 02/04/19 13:02; Admin Dose 100 MLS/HR; Start 01/27/19 at 15:00 Atorvastatin Calcium (Lipitor) 40 mg QHS NGT Last administered on 02/03/19 20:34; Admin Dose 40 MG; Start 01/28/19 at 21:00 Docusate Sodium (Colace Liquid Cup) 100 mg BID NGT ; Start 01/27/19 at 22:00; Status Hold Terazosin HCl (Hytrin) 10 mg HS NGT Last administered on 02/03/19 20:34; Admin Dose 10 MG; Start 01/28/19 at 21:00 Levetiracetam 100 ml @ 400 mls/hr Q12 IVPB Last administered on 02/04/19 08:4 6; Admin Dose 400 MLS/HR; Start 01/28/19 at 09:00 Levothyroxine Sodium (Synthroid) 125 mcg BEFORE BREAKFAST NGT Last administered on 02/04/19 06:10; Admin Dose 125 MCG; Start 01/28/19 at 07:00 Ferrous Sulfate (Feosol Liquid Cup) 300 mg WITH MEALS GTB Last administered on 02/04/19 11:56; Admin Dose 300 MG; Start 01/28/19 at 11:30 Multivitamins (Multivitamin) 30 ml DAILY GTB Last administered on 02/04/19 08:46; Admin Dose 30 ML; Start 01/28/19 at 11:00 Lansoprazole (Prevacid) 30 mg DAILY@06 NGT Last administered on 02/04/19 06:10; Admin Dose 30 MG; Start 01/28/19 at 11:00 Diagnostic Test (Pha) (Accu-Chek) 1 ea Q4 XX Last administered on 02/04/19 13:01; Admin Dose 1 EA; Start 01/28/19 at 13:00 Nystatin/ Triamcinolone Acetonide (Mycolog Oint) 1 applic BID TOP Last administered on 02/04/19 08:57; Admin Dose 1 APPLIC; Start 01/28/19 at 22:30 Insulin Aspart (Novolog Insulin Pen) NOVOLOG *MILD* ALGORI... Q4 SC Last administered on 02/04/19 13:13; Admin Dose 2 UNIT; Start 01/29/19 at 05:00 Albuterol/ Ipratropium (Duoneb) 3 ml Q6HWA RESP THERAPY HHN Last administered on 02/04/19 09:10; Admin Dose 3 ML; Start 01/29/19 at 14:00 Epoetin Dae-epbx (RETACRIT(non-esrd)) 40,000 unit Mo@1700 SC Last administered on 02/03/19 18:12; Admin Dose 40,000 UNIT; Start 02/03/19 at 17:00 Mupirocin (Bactroban) 1 applic BID TOP Last administered on 02/04/19 08:58; Admin Dose 1 APPLIC; Start 01/30/19 at 15:26; Stop 02/09/19 at 15:25 Tobramycin Sulfate/Sodium Chloride (Nilesh Inhal) 300 mg BID RESP THERAPY NEB Last administered on 02/04/19 09:15; Admin Dose 300 MG; Start 01/30/19 at 20:00 Insulin Glargine (Lantus) 10 units DAILY@2000 SC Last administered on 02/03/19 20:39; Admin Dose 10 UNITS; Start 01/31/19 at 20:00 Potassium Chloride (Potassium Chloride Pwd/Soln) 20 meq TID NGT Last administered on 02/04/19 12:58; Admin Dose 20 MEQ; Start 02/02/19 at 09:00 Methylprednisolone Sodium Succinate (Solu-Medrol) 40 mg DAILY IV Last administered on 02/04/19 08:46; Admin Dose 40 MG; Start 02/03/19 at 09:00 Insulin Human NPH (Humulin N) 3 unit DAILY SC Last administered on 02/04/19 08:54; Admin Dose 3 UNIT; Start 02/03/19 at 09:00 Dextrose 1,000 ml @ 100 mls/hr Q10H IV Last administered on 02/04/19 11:56; Admin Dose 100 MLS/HR; Start 02/03/19 at 11:00 Aztreonam 1 gm/ Dextrose 50 ml @ 100 mls/hr Q12 IVPB Last administered on 02/04/19 08:46; Admin Dose 100 MLS/HR; Start 02/03/19 at 21:00 Potassium Phosphate 30 mm/ Sodium Chloride 260 ml @ 65 mls/hr ONCE ONCE IVPB Last administered on 02/04/19 12:57; Admin Dose 65 MLS/HR; Start 02/04/19 at 11:30; Stop 02/04/19 at 15:29 Vancomycin HCl 750 mg/Dextrose 250 ml @ 125 mls/hr Q48H IVPB ; Start 02/04/19 at 23:00 LUCIAN HARKINS NP February 04, 2019 14:14
[2019-02-04] MEDS ORDERED: INSULIN GLARGINE [LANTus] (100 UNITS/ML) SYG SC SCH (20:00)
[2019-02-04] MEDS: ATORVASTATIN 40 MG TAB NGT SCH (20:58)
[2019-02-04] MEDS: TERAZOSIN 5 MG CAP NGT SCH (20:58)
[2019-02-04] MEDS: INSULIN GLARGINE [LANTus] (100 UNITS/ML) SYG SC SCH (20:58)
[2019-02-04] MEDS: VANCOMYCIN 750 MG in DEXTROSE 5% 250 ML IVPB SCH (23:31)
[2019-02-04] MEDS: LATANOPROST 0.005% 2.5 ML OPH BOTH EYES SCH (23:33)
[2019-02-05] VITALS (23 sets, daily range): BP systolic 99–140; BP diastolic 37–76; PULSE 81–108; RESP 18–32
[2019-02-05] MEDS: ACCU-CHEK XX SCH ×6 (01:35→21:55)
[2019-02-05] MEDS: INSULIN ASPART [NOVOLOG] 3 ML PEN SC SCH ×6 (01:38→21:53)
[2019-02-05] MEDS: DEXTROSE 5% 1,000 ML IV SCH ×3 (04:56→18:45)
[2019-02-05] MEDS: LANSOPRAZOLE 30 MG CAP NGT SCH (05:14)
[2019-02-05] MEDS: metroNIDAZOLE 500 MG/NS (PMX) 100 ML IVPB SCH ×3 (05:14→21:59)
[2019-02-05] MEDS: LEVOTHYROXINE 125 MCG TAB NGT SCH (07:16)
[2019-02-05] MEDS ORDERED: NPH, HUMAN INSULIN ISOPHANE 3ML VIAL SC SCH (09:00)
[2019-02-05] MEDS: METHYLPREDNISOLONE 40 MG INJ IV SCH (09:29)
[2019-02-05] MEDS: FERROUS SULFATE 60 MG/ML 5ML CUP GTB SCH ×3 (09:29→17:23)
[2019-02-05] MEDS: MULTIVITAMINS 30 ML CUP GTB SCH (09:29)
[2019-02-05] MEDS: ZINC SULFATE 220 MG CAP PO SCH (09:43)
[2019-02-05] MEDS: LEVETIRACETAM 500 MG (PMX) 100 ML IVPB SCH ×2 (09:43→21:52)
[2019-02-05] MEDS: MUPIROCIN 2% 22 GM OINT TOP SCH ×2 (09:43→21:55)
[2019-02-05] MEDS: BALSAM PERU/CASTOR OIL 60 GM TUBE TOP SCH ×2 (09:43→21:55)
[2019-02-05] MEDS: AZTREONAM 1 GM in DEXTROSE 5% 50 ML IVPB SCH ×2 (09:43→21:52)
[2019-02-05] MEDS: AQUAPHOR 52.5 GM OINT TOP SCH ×2 (09:43→21:54)
[2019-02-05] MEDS: NYSTATIN 30 GM POWDER BTL TOP SCH ×2 (09:44→21:55)
[2019-02-05] MEDS: NYSTATIN/TRIAMCINOLONE 15 GM OINT TOP SCH (09:44)
[2019-02-05] MEDS: ASCORBIC ACID 250 MG TAB PO SCH (09:45)
[2019-02-05] MEDS: POTASSIUM CHLORIDE 20 MEQ POWDER FOR ORAL SOLN NGT SCH ×3 (09:46→21:51)
[2019-02-05] MEDS: FOLIC ACID 1 MG TAB PO SCH (09:46)
[2019-02-05] MEDS: DEXTROSE 50% 50 ML SYRINGE IV PRN (09:50)
[2019-02-05] MEDS: ALBUTEROL/IPRATROPIUM (NEB) 3 ML AMP HHN SCH ×3 (10:16→20:27)
[2019-02-05] MEDS: TOBRAMYCIN/0.25NS 300 MG/5 ML INHAL NEB SCH ×2 (10:16→20:27)
--- NOTE | 2019-02-05 10:18 | PN ---
Date/Time of Note Date/Time of Note DATE: 02/05/19 TIME: 10:15 Assessment/Plan VTE Prophylaxis Risk score (from [facility] [place]0 risk: 12 SCD applied (from [facility] [place]): No SCD contraindicated: low risk/ambulating Pharmacological prophylaxis: NA/contraindicated Pharm contraindication: low risk/ambulating Lines/Catheters IV [facility]ter [facility] (from [facility] Central Line Central line still needed: Yes Urinary Cath still in place: Yes Reason Cath still needed: urinary retention Assessment/Plan Hospital Course Hospital Course # AMS likely due to stroke vs seizure, 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 Septic shock now on pressors likely secondary to pneumonia on levophed resolved # Hypothermia ? sepsis #. 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 Chronic renal failure likely secondary to sepsis, improved, normal creatinine #. Hypertension.currently hypotensive resolved # Impending respiratory failure # Anasarca # Hyperlipidemia. # Hypothyroidism. # Bilateral groin cellulitis more likely associated with mateus, patches in groin and axilla bilaterally. skin peeling # History of rheumatoid arthritis with joint deformities. # Diabetes type 2. # Hx of CABGx2, carotid stent #. Peripheral vascular disease. #. Chronic a.fib, now on lovenox #. right arm edema # Neoplasm per CT abdomen. 4.3 cm cystic lesion along the pancreas body, enlarged since 10/10/2012 (previously 2.4 cm). 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 # Possible allergic skin reaction ? drug present since admission> improved s/p biopsy/ Amrik Serafin > limit results solar keratosis # hypoThermia #Hypernatremia vasiliy due to dehydration improving # metabolic alkalosis Plan - GI consult> hold lovenox due to possibel bleeding, iv ppi - 1 unit prbc> GI informed - increase FWF 100 q4 and change fluids to d5w incrrease rate, recheck sodium and recheck Hb - hold lasix due to metabolic alkalosis - - cw feeding at 60 cc/hr, switch to novasource, switch anx in d5w - cw aztreonam/vanco/flagyl/tobra - cwsolumedrol to 40 -replete mg -c w keppra - cw lovenox 60 for afib> held today - fu Neuro recs and neuro checks ? LP was refused by family -on ASA, statin - GI and DVT prophylaxsis -oncology consul dr Lorenzo aware:he said Ca 19-9 is negative indicating unlikely malignant. This may be a pseudocyst or a precancerous pancreatic lesion. It has been growing in size but patient is asymptomatic. EUS with biopsy is recommended and can either be done inpatient or outpatient setting. The patient at this time is unlikely a candidate for a Whipple surgery however. -skin care - s/p skin biopsy pending results solar elastosis > will kemar derm input - opthlamology, family wants Dr Montiel pts optlamologist on case who will return from [facility] today> will contact Result Diagram: 02/05/19 0445 02/05/19 0445 Results 24hrs Laboratory Tests Test 02/04/19 13:01 02/04/19 17:05 02/04/19 17:54 02/04/19 20:56 Bedside Glucose 219 226 H 203 Sodium Level 156 H Test 02/05/19 01:34 02/05/19 04:45 02/05/19 05:18 02/05/19 09:40 Bedside Glucose 233 H 117 62 L White Blood Count 29.0 H Red Blood Count 2.34 L Hemoglobin 6.7 *L Hematocrit 21.9 L Mean Corpuscular 93.6 Volume Mean Corpuscular 28.6 L Hemoglobin Mean Corpuscular 30.6 L Hemoglobin Concent Red Cell 19.9 H Distribution Width Platelet Count 101 L Mean Platelet Volume 12.9 H Immature 1.300 H Granulocytes % Neutrophils % 87.2 H Lymphocytes % 9.3 L Monocytes % 1.9 Eosinophils % 0.2 Basophils % 0.1 Nucleated Red Blood 0.8 H Cells % Immature 0.370 H Granulocytes # Neutrophils # 25.3 H Lymphocytes # 2.7 Monocytes # 0.5 Eosinophils # 0.1 Basophils # 0.0 Nucleated Red Blood 0.2 H Cells # Sodium Level 156 H Potassium Level 4.1 Chloride Level 120 H Carbon Dioxide Level 32 H Anion Gap 4 L Blood Urea Nitrogen 63 H Creatinine 1.56 H Est Glomerular Filtrat Rate mL/min Glucose Level 98 Calcium Level 7.1 L Phosphorus Level 3.0 Magnesium Level 1.6 L Test 02/05/19 10:05 Bedside Glucose 130 Subjective 24 Hr Interval Summary Free Text/Dictation pt answering more questions today off pressors hb 6.7 today and pt had dark stool today Exam/Review of Systems Exam Vitals Vital Signs Date Temp Pulse Resp B/P (MAP) Pulse Ox O2 O2 Flow FiO2 Time Delivery Rate 02/05/19 88 08:00 02/05/19 28 125/56 92 06:00 (79) 02/05/19 Nasal 2.0 05:00 Cannula 02/05/19 97.9 04:00 02/04/19 70 14:45 Intake and Output 02/04/19 02/04/19 02/05/19 1515:00 23:00 07:00 IntakeIntake Total 1613 ml 1739 ml 1720 ml OutputOutput Total 910 ml 510 ml 350 ml BalanceBalance 703 ml 1229 ml 1370 ml Exam G tube Constitutional: frail. answers his name his daughter's name and the month, follows directions Respiratory: diminished breath sounds Cardiovascular: regular rate and rhythm, other (afib) Gastrointestinal: soft Neurological: awake Anasarca improved Skin: diffuse dequamative tissue improving Results Results 24hrs Laboratory Tests Test 02/04/19 13:01 02/04/19 17:05 02/04/19 17:54 02/04/19 20:56 Bedside Glucose 219 226 H 203 Sodium Level 156 H Test 02/05/19 01:34 02/05/19 04:45 02/05/19 05:18 02/05/19 09:40 Bedside Glucose 233 H 117 62 L White Blood Count 29.0 H Red Blood Count 2.34 L Hemoglobin 6.7 *L Hematocrit 21.9 L Mean Corpuscular 93.6 Volume Mean Corpuscular 28.6 L Hemoglobin Mean Corpuscular 30.6 L Hemoglobin Concent Red Cell 19.9 H Distribution Width Platelet Count 101 L Mean Platelet Volume 12.9 H Immature 1.300 H Granulocytes % Neutrophils % 87.2 H Lymphocytes % 9.3 L Monocytes % 1.9 Eosinophils % 0.2 Basophils % 0.1 Nucleated Red Blood 0.8 H Cells % Immature 0.370 H Granulocytes # Neutrophils # 25.3 H Lymphocytes # 2.7 Monocytes # 0.5 Eosinophils # 0.1 Basophils # 0.0 Nucleated Red Blood 0.2 H Cells # Sodium Level 156 H Potassium Level 4.1 Chloride Level 120 H Carbon Dioxide Level 32 H Anion Gap 4 L Blood Urea Nitrogen 63 H Creatinine 1.56 H Est Glomerular Filtrat Rate mL/min Glucose Level 98 Calcium Level 7.1 L Phosphorus Level 3.0 Magnesium Level 1.6 L Test 02/05/19 10:05 Bedside Glucose 130 Medications Medication Current Medications Lactulose (Enulose) 20 gm DAILY PRN PO CONSTIPATION; Start 01/17/19 at 18:17 Acetaminophen (Tylenol Tab) 650 mg Q4H PRN PO PAIN Last administered on 01/23/19at 22:48; Admin Dose 650 MG; Start 01/17/19 at 18:17 Miscellaneous Information (Pending [facility] Order For Wound Care) This patient ramirez... PRN PRN XX WOUND CARE; Start 01/17/19 at 18:17 Albuterol/ Ipratropium (Duoneb) 3 ml Q2H RESP THERAPY PRN HHN SHORTNESS OF BREATH; Start 01/17/19 at 18:17 Bisacodyl (Dulcolax) 10 mg BID PRN PO CONSTIPATION; Start 01/17/19 at 18:17; Status Hold Folic Acid (Folic Acid) 1 mg DAILY PO Last administered on 02/05/19at 09:46; Admin Dose 1 MG; Start 01/17/19 at 18:17 Latanoprost (Xalatan) 1 drop HS BOTH EYES Last administered on 02/04/19at 23:33; Admin Dose 1 DROP; Start 01/17/19 at 18:17 Nitroglycerin (Nitroglycerin (Sl Tab) 0.4 Mg) 0.4 tab Q5M PRN SL CHEST PAIN; Start 01/17/19 at 18:17 Nystatin (Nystatin Powder) 1 applic BID TOP Last administered on 02/05/19at 09:44; Admin Dose 1 APPLIC; Start 01/17/19 at 18:17 IV Flush (NS 3 ml) 3 ml PER PROTOCOL IV ; Start 01/17/19 at 18:17 Miscellaneous Information 1 ea NOTE XX ; Start 01/17/19 at 18:17 Glucose (Glutose) 15 gm Q15M PRN PO DECREASED GLUCOSE; Start 01/17/19 at 18:17 Glucose (Glutose) 22.5 gm Q15M PRN PO DECREASED GLUCOSE; Start 01/17/19 at 18:17 Dextrose (D50w Syringe) 25 ml Q15M PRN IV DECREASED GLUCOSE Last administered on 02/05/19at 09:50; Admin Dose 25 ML; Start 01/17/19 at 18:17 Dextrose (D50w Syringe) 50 ml Q15M PRN IV DECREASED GLUCOSE; Start 01/17/19 at 18:17 Glucagon (Glucagen) 1 mg Q15M PRN IM DECREASED GLUCOSE; Start 01/17/19 at 18:17 Glucose (Glutose) 15 gm Q15M PRN BUCCAL DECREASED GLUCOSE; Start 01/17/19 at 18:17 Zinc Sulfate (Zinc Sulfate) 220 mg DAILY PO Last administered on 02/05/19at 09:43; Admin Dose 220 MG; Start 01/17/19 at 18:17 Ascorbic Acid (Vitamin C) 250 mg DAILY PO Last administered on 02/05/19 09:45; Admin Dose 250 MG; Start 01/17/19 at 18:17 Multi-Ingredient Ointment (Aquaphor Oint 52.5 Gm) 1 applic BID TOP Last administered on 02/05/19at 09:43; Admin Dose 1 APPLIC; Start 01/17/19 at 18:17 Bisacodyl (Dulcolax Supp) 10 mg DAILY PRN [place] CONSTIPATION; Start 01/17/19 at 18:17 Zinc Acetate/ Diphenhydramine (Benadryl 2% Cr) 1 applic Q6H PRN TOP ITCHING Last administered on 01/26/19at 07:54; Admin Dose 1 APPLIC; Start 01/19/19 at 16 :37 IV Flush (NS 10 ml) 10 ml PRN PRN IV IV PROTOCOL; Start 01/20/19 at 14:30 Cyanocobalamin (Vitamin B12 Inj) 1,000 mcg Q7D IM Last administered on 02/03/19at 08:14; Admin Dose 1,000 MCG; Start 02/03/19 at 09:00 Metoprolol Tartrate (Lopressor) 5 mg Q4H PRN IV HR>110 Hold SBP<100; Start 01/26/19 at 14:30 Vancomycin HCl (Vanco Iv Per Pharmacy) VANCOMYCIN PER PHARMACY PER PROTOCOL XX ; Start 01/27/19 at 12:00 Enoxaparin Sodium (Lovenox) 60 mg DAILY SC Last administered on 02/03/19at 08:06; Admin Dose 60 MG; Start 01/28/19 at 09:00; Status Hold Lorazepam (Ativan) 1 mg Q2 PRN IV SEIZURES Last administered on 02/02/19 09:18; Admin Dose 1 MG; Start 01/27/19 at 14:00 Metronidazole 100 ml @ 100 mls/hr Q8 IVPB Last administered on 02/05/19 05:14; Admin Dose 100 MLS/HR; Start 01/27/19 at 15:00 Atorvastatin Calcium (Lipitor) 40 mg QHS NGT Last administered on 02/04/19 20:58; Admin Dose 40 MG; Start 01/28/19 at 21:00 Docusate Sodium (Colace Liquid Cup) 100 mg BID NGT ; Start 01/27/19 at 22:00; Status Hold Terazosin HCl (Hytrin) 10 mg HS NGT Last administered on 02/04/19 20:58; Admin Dose 10 MG; Start 01/28/19 at 21:00 Levetiracetam 100 ml @ 400 mls/hr Q12 IVPB Last administered on 02/05/19 09:43; Admin Dose 400 MLS/HR; Start 01/28/19 at 09:00 Levothyroxine Sodium (Synthroid) 125 mcg BEFORE BREAKFAST NGT Last administered on 02/05/19 07:16; Admin Dose 125 MCG; Start 01/28/19 at 07:00 Ferrous Sulfate (Feosol Liquid Cup) 300 mg WITH MEALS GTB Last administered on 02/05/19 09:29; Admin Dose 300 MG; Start 01/28/19 at 11:30 Multivitamins (Multivitamin) 30 ml DAILY GTB Last administered on 02/05/19 09:29; Admin Dose 30 ML; Start 01/28/19 at 11:00 Diagnostic Test (Pha) (Accu-Chek) 1 ea Q4 XX Last administered on 02/05/19 09:45; Admin Dose 1 EA; Start 01/28/19 at 13:00 Nystatin/ Triamcinolone Acetonide (Mycolog Oint) 1 applic BID TOP Last administered on 02/05/19 09:44; Admin Dose 1 APPLIC; Start 01/28/19 at 22:30 Insulin Aspart (Novolog Insulin Pen) NOVOLOG *MILD* ALGORI... Q4 SC Last administered on 02/05/19 01:38; Admin Dose 3 UNIT; Start 01/29/19 at 05:00 Albuterol/ Ipratropium (Duoneb) 3 ml Q6HWA RESP THERAPY HHN Last administered on 02/04/19 20:18; Admin Dose 3 ML; Start 01/29/19 at 14:00 Epoetin Dae-epbx (RETACRIT(non-esrd)) 40,000 unit Mo@1700 SC Last administered on 02/03/19 18:12; Admin Dose 40,000 UNIT; Start 02/03/19 at 17:00 Mupirocin (Bactroban) 1 applic BID TOP Last administered on 02/05/19 09:43; Admin Dose 1 APPLIC; Start 01/30/19 at 15:26; Stop 02/09/19 at 15:25 Tobramycin Sulfate/Sodium Chloride (Nilesh Inhal) 300 mg BID RESP THERAPY NEB Last administered on 02/04/19 20:23; Admin Dose 300 MG; Start 01/30/19 at 20:00 Insulin Glargine (Lantus) 10 units DAILY@2000 SC Last administered on 02/04/19 20:58; Admin Dose 10 UNITS; Start 01/31/19 at 20:00 Potassium Chloride (Potassium Chloride Pwd/Soln) 20 meq TID NGT Last administered on 02/05/19 09:46; Admin Dose 20 MEQ; Start 02/02/19 at 09:00 Methylprednisolone Sodium Succinate (Solu-Medrol) 40 mg DAILY IV Last administered on 02/05/19 09:29; Admin Dose 40 MG; Start 02/03/19 at 09:00 Dextrose 1,000 ml @ 100 mls/hr Q10H IV Last administered on 02/05/19 04:56; Admin Dose 100 MLS/HR; Start 02/03/19 at 11:00 Aztreonam 1 gm/ Dextrose 50 ml @ 100 mls/hr Q12 IVPB Last administered on 02/05/19 09:43; Admin Dose 100 MLS/HR; Start 02/03/19 at 21:00 Vancomycin HCl 750 mg/Dextrose 250 ml @ 125 mls/hr Q48H IVPB Last administered on 02/04/19 23:31; Admin Dose 125 MLS/HR; Start 02/04/19 at 23:00 Insulin Human NPH (Humulin N) 5 unit DAILY SC ; Start 02/05/19 at 09:00 Magnesium Sulfate 50 ml @ 25 mls/hr ONCE ONCE IVPB ; Start 02/05/19 at 10:30; Stop 02/05/19 at 12:29; Status UNV Pantoprazole (Protonix Iv) 40 mg BID@06,18 IV ; Start 02/05/19 at 18:00; Status UNV IVAN AKHTAR MD February 05, 2019 10:18
[2019-02-05] MEDS ORDERED: MAGNESIUM SULFATE 2 GM/50 ML 50 ML IVPB ONE (10:30)
--- NOTE | 2019-02-05 12:03 | CONS ---
Consult Date/Type/Reason Admit Date/Time Jan 17, 2019 at 15:58 Initial Consult Date 01/18/19 Type of Consult Pulmonary Requesting Provider: IVAN AKHTAR MD Date/Time of Note DATE: 02/05/19 TIME: 12:02 Subjective No significant changes. Pending blood transfusion today. Currently hemodynamically stable off vasopressors. No respiratory distress. Chest x-ray shows persistent right-sided infiltrate. Objective Vital Signs Date Temp Pulse Resp B/P (MAP) Pulse Ox O2 O2 Flow FiO2 Time Delivery Rate 02/05/19 101 31 111/46 100 Nasal 2.0 11:00 (67) Cannula 02/05/19 97.9 08:00 02/04/19 70 14:45 Intake and Output 02/04/19 02/04/19 02/05/19 1515:00 23:00 07:00 IntakeIntake Total 1613 ml 1739 ml 1880 ml OutputOutput Total 910 ml 510 ml 390 ml BalanceBalance 703 ml 1229 ml 1490 ml Exam GENERAL: Frail elderly gentleman comfortable at rest on nasal cannula VITAL SIGNS: per chart NECK: Supple. No JVD or lymphadenopathy. CARDIAC EXAM: S1, S2. No added sounds or murmurs. CHEST: Diminished air entry both bases ABDOMEN: Soft, nontender. No guarding or rebound. EXTREMITIES: No cyanosis, clubbing edema +2 NEUROLOGIC: Generalized weakness. Vent Setting Ventilator Support Mode: AC Fraction of Inspired Oxygen pe: 70 Positive End Expiratory Pressu: 5.0 Results/Medications Result Diagram: 02/05/19 0445 02/05/19 0445 Results 24 hrs Laboratory Tests Test 02/04/19 13:01 02/04/19 17:05 02/04/19 17:54 02/04/19 20:56 Bedside Glucose 219 226 H 203 Sodium Level 156 H Test 02/05/19 01:34 02/05/19 04:45 02/05/19 05:18 02/05/19 09:40 Bedside Glucose 233 H 117 62 L White Blood Count 29.0 H Red Blood Count 2.34 L Hemoglobin 6.7 *L Hematocrit 21.9 L Mean Corpuscular 93.6 Volume Mean Corpuscular 28.6 L Hemoglobin Mean Corpuscular 30.6 L Hemoglobin Concent Red Cell 19.9 H Distribution Width Platelet Count 101 L Mean Platelet Volume 12.9 H Immature 1.300 H Granulocytes % Neutrophils % 87.2 H Lymphocytes % 9.3 L Monocytes % 1.9 Eosinophils % 0.2 Basophils % 0.1 Nucleated Red Blood 0.8 H Cells % Immature 0.370 H Granulocytes # Neutrophils # 25.3 H Lymphocytes # 2.7 Monocytes # 0.5 Eosinophils # 0.1 Basophils # 0.0 Nucleated Red Blood 0.2 H Cells # Sodium Level 156 H Potassium Level 4.1 Chloride Level 120 H Carbon Dioxide Level 32 H Anion Gap 4 L Blood Urea Nitrogen 63 H Creatinine 1.56 H Est Glomerular Filtrat Rate mL/min Glucose Level 98 Calcium Level 7.1 L Phosphorus Level 3.0 Magnesium Level 1.6 L Test 02/05/19 10:05 02/05/19 10:22 02/05/19 10:25 02/05/19 10:43 Bedside Glucose 130 118 104 Prothrombin Time 23.0 H Prothrombin Time 1.8 Ratio INR International 2.03 Normalized Ratio Medications Current Medications Lactulose (Enulose) 20 gm DAILY PRN PO CONSTIPATION; Start 01/17/19 at 18:17 Acetaminophen (Tylenol Tab) 650 mg Q4H PRN PO PAIN Last administered on at 22:48; Admin Dose 650 MG; Start 01/17/19 at 18:17 Miscellaneous Information (Pending [facility] Order For Wound Care) This patient ramirez... PRN PRN XX WOUND CARE; Start 01/17/19 at 18:17 Albuterol/ Ipratropium (Duoneb) 3 ml Q2H RESP THERAPY PRN HHN SHORTNESS OF BREATH; Start 01/17/19 at 18:17 Bisacodyl (Dulcolax) 10 mg BID PRN PO CONSTIPATION; Start 01/17/19 at 18:17; Status Hold Folic Acid (Folic Acid) 1 mg DAILY PO Last administered on 02/05/19at 09:46; Admin Dose 1 MG; Start 01/17/19 at 18:17 Latanoprost (Xalatan) 1 drop HS BOTH EYES Last administered on 02/04/19at 23:33; Admin Dose 1 DROP; Start 01/17/19 at 18:17 Nitroglycerin (Nitroglycerin (Sl Tab) 0.4 Mg) 0.4 tab Q5M PRN SL CHEST PAIN; Start 01/17/19 at 18:17 Nystatin (Nystatin Powder) 1 applic BID TOP Last administered on 02/05/19at 09:44; Admin Dose 1 APPLIC; Start 01/17/19 at 18:17 IV Flush (NS 3 ml) 3 ml PER PROTOCOL IV ; Start 01/17/19 at 18:17 Miscellaneous Information 1 ea NOTE XX ; Start 01/17/19 at 18:17 Glucose (Glutose) 15 gm Q15M PRN PO DECREASED GLUCOSE; Start 01/17/19 at 18:17 Glucose (Glutose) 22.5 gm Q15M PRN PO DECREASED GLUCOSE; Start 01/17/19 at 18:17 Dextrose (D50w Syringe) 25 ml Q15M PRN IV DECREASED GLUCOSE Last administered on 02/05/19at 09:50; Admin Dose 25 ML; Start 01/17/19 at 18:17 Dextrose (D50w Syringe) 50 ml Q15M PRN IV DECREASED GLUCOSE; Start 01/17/19 at 18:17 Glucagon (Glucagen) 1 mg Q15M PRN IM DECREASED GLUCOSE; Start 01/17/19 at 18:17 Glucose (Glutose) 15 gm Q15M PRN BUCCAL DECREASED GLUCOSE; Start 01/17/19 at 18:17 Zinc Sulfate (Zinc Sulfate) 220 mg DAILY PO Last administered on 02/05/19 09:43; Admin Dose 220 MG; Start 01/17/19 at 18:17 Ascorbic Acid (Vitamin C) 250 mg DAILY PO Last administered on 02/05/19at 09:45; Admin Dose 250 MG; Start 01/17/19 at 18:17 Multi-Ingredient Ointment (Aquaphor Oint 52.5 Gm) 1 applic BID TOP Last administered on 02/05/19at 09:43; Admin Dose 1 APPLIC; Start 01/17/19 at 18:17 Bisacodyl (Dulcolax Supp) 10 mg DAILY PRN [place] CONSTIPATION; Start 01/17/19 at 18:17 Zinc Acetate/ Diphenhydramine (Benadryl 2% Cr) 1 applic Q6H PRN TOP ITCHING Last administered on 01/26/19at 07:54; Admin Dose 1 APPLIC; Start 01/19/19 at 16:37 IV Flush (NS 10 ml) 10 ml PRN PRN IV IV PROTOCOL; Start 01/20/19 at 14:30 Cyanocobalamin (Vitamin B12 Inj) 1,000 mcg Q7D IM Last administered on 02/03/19 08:14; Admin Dose 1,000 MCG; Start 02/03/19 at 09:00 Metoprolol Tartrate (Lopressor) 5 mg Q4H PRN IV HR>110 Hold SBP<100; Start 01/26/19 at 14:30 Vancomycin HCl (Vanco Iv Per Pharmacy) VANCOMYCIN PER PHARMACY PER PROTOCOL XX ; Start 01/27/19 at 12:00 Enoxaparin Sodium (Lovenox) 60 mg DAILY SC Last administered on 02/03/19 08:06; Admin Dose 60 MG; Start 01/28/19 at 09:00; Status Hold Lorazepam (Ativan) 1 mg Q2 PRN IV SEIZURES Last administered on 02/02/19 09:18; Admin Dose 1 MG; Start 01/27/19 at 14:00 Metronidazole 100 ml @ 100 mls/hr Q8 IVPB Last administered on 02/05/19 05:14; Admin Dose 100 MLS/HR; Start 01/27/19 at 15:00 Atorvastatin Calcium (Lipitor) 40 mg QHS NGT Last administered on 02/04/19 20:58; Admin Dose 40 MG; Start 01/28/19 at 21:00 Docusate Sodium (Colace Liquid Cup) 100 mg BID NGT ; Start 01/27/19 at 22:00; Status Hold Terazosin HCl (Hytrin) 10 mg HS NGT Last administered on 02/04/19 20:58; Admin Dose 10 MG; Start 01/28/19 at 21:00 Levetiracetam 100 ml @ 400 mls/hr Q12 IVPB Last administered on 02/05/19 09:43; Admin Dose 400 MLS/HR; Start 01/28/19 at 09:00 Levothyroxine Sodium (Synthroid) 125 mcg BEFORE BREAKFAST NGT Last administered on 02/05/19 07:16; Admin Dose 125 MCG; Start 01/28/19 at 07:00 Ferrous Sulfate (Feosol Liquid Cup) 300 mg WITH MEALS GTB Last administered on 02/05/19 10:52; Admin Dose 300 MG; Start 01/28/19 at 11:30 Multivitamins (Multivitamin) 30 ml DAILY GTB Last administered on 02/05/19 09:29; Admin Dose 30 ML; Start 01/28/19 at 11:00 Diagnostic Test (Pha) (Accu-Chek) 1 ea Q4 XX Last administered on 02/05/19 09:45; Admin Dose 1 EA; Start 01/28/19 at 13:00 Nystatin/ Triamcinolone Acetonide (Mycolog Oint) 1 applic BID TOP Last administered on 02/05/19 09:44; Admin Dose 1 APPLIC; Start 01/28/19 at 22:30 Insulin Aspart (Novolog Insulin Pen) NOVOLOG *MILD* ALGORI... Q4 SC Last adm inistered on 02/05/19 01:38; Admin Dose 3 UNIT; Start 01/29/19 at 05:00 Albuterol/ Ipratropium (Duoneb) 3 ml Q6HWA RESP THERAPY HHN Last administered on 02/05/19 10:16; Admin Dose 3 ML; Start 01/29/19 at 14:00 Epoetin Dae-epbx (RETACRIT(non-esrd)) 40,000 unit Mo@1700 SC Last administered on 02/03/19 18:12; Admin Dose 40,000 UNIT; Start 02/03/19 at 17:00 Mupirocin (Bactroban) 1 applic BID TOP Last administered on 02/05/19 09:43; Admin Dose 1 APPLIC; Start 01/30/19 at 15:26; Stop 02/09/19 at 15:25 Tobramycin Sulfate/Sodium Chloride (Nilesh Inhal) 300 mg BID RESP THERAPY NEB Last administered on 02/05/19 10:16; Admin Dose 300 MG; Start 01/30/19 at 20:00 Insulin Glargine (Lantus) 10 units DAILY@2000 SC Last administered on 02/04/19 20:58; Admin Dose 10 UNITS; Start 01/31/19 at 20:00 Potassium Chloride (Potassium Chloride Pwd/Soln) 20 meq TID NGT Last administered on 02/05/19 09:46; Admin Dose 20 MEQ; Start 02/02/19 at 09:00 Dextrose 1,000 ml @ 100 mls/hr Q10H IV Last administered on 02/05/19 04:56; Admin Dose 100 MLS/HR; Start 02/03/19 at 11:00 Aztreonam 1 gm/ Dextrose 50 ml @ 100 mls/hr Q12 IVPB Last administered on 02/05/19at 09:43; Admin Dose 100 MLS/HR; Start 02/03/19 at 21:00 Vancomycin HCl 750 mg/Dextrose 250 ml @ 125 mls/hr Q48H IVPB Last administered on 02/04/19at 23:31; Admin Dose 125 MLS/HR; Start 02/04/19 at 23:00 Magnesium Sulfate 50 ml @ 25 mls/hr ONCE ONCE IVPB Last administered on 02/05/19at 10:52; Admin Dose 25 MLS/HR; Start 02/05/19 at 10:30; Stop 02/05/19 at 12:29 Pantoprazole (Protonix Iv) 40 mg BID@06,18 IV ; Start 02/05/19 at 18:00 Assessment/Plan Hospital Course (Demo Recall) IMP: 1. s/p Acute hypoxemic respiratory failure likely secondary to combination of volume overload and pneumonia 2. Encephalopathy underlying dementia versus toxic metabolic, appears to be slowly improving possibly secondary to elevated sodium. 3. Valvular heart disease 4. Severe dysphagia 5. Status post septic shock likely secondary to above 6. Anemia, no active GI bleeding 7. Skin diffuse excoriating skin lesion unclear etiology not consistent with history of "red man" syndrome. or pemphigus. 8. Anemia RECS: 1. Monitor respiratory status closely. Strict aspiration precautions 2. Continue broad-spectrum antibiotics 3. Infectious work-up as per ID 4. Agree with transfusion of packed red blood cells 5. Palliative care consult appreciated 6. Replete K+ and Mg, continue free water 7. Aspiration precautions Transfer to telemetry Consider DNR CODE STATUS Overall prognosis remains guarded Critical care time 40 minutes DIANA MCRAE MD, [facility] February 05, 2019 12:03
--- NOTE | 2019-02-05 12:44 | CONS ---
Assessment/Plan Assessment/Plan Hospital Course (Demo Recall) IMPRESSION: 1. Atrial fibrillation, currently rate controlled.-off systemic anticoagulation due to anemia. ON asa only due to anemia 2. Possible congestive heart failure by chest x-ray, which will be diastolic, acute on chronic by most recent echo with an EF of 60%. 3. Tricuspid regurgitation, moderate by most recent echo. 4. Acute on chronic renal failure-mild worsening 5. Possible pneumonia. 6. History of coronary artery disease, status post coronary artery bypass graft surgery. 7. Dyslipidemia. 8. Rheumatoid arthritis. 9. Groin cellulitis. 10. Anemia-worsening again today requiring transfusions PRBC's.Now post-op s/p endoscopy 11. Diabetes mellitus. 12. Sepsis/leukocytosis 14. abdominal mass 15. Rash-all over body with skin chaffing at this time, probable drug reaction 16. Encephalopathy-ongoing. MRI negative for acute CVA Recc: -Now in ICU -serial ecg's -dose IVP digoxin to improve HR control -Continue lasix but follow volume status closely -Continue statin -Currently off abx's/antifungals, f/u cx data -Ongoing GI eval of abd mass -ongoing neuro eval -Lovenox held in the setting of GIB/worsening anemia -transfuse PRBC's -start low dose BB Consultation Date/Type/Reason Admit Date/Time Jan 17, 2019 at 15:58 Initial Consult Date 01/18/19 Type of Consult Cardiology Reason for Consultation AF Requesting Provider: IVAN AKHTAR MD Date/Time of Note DATE: 02/05/19 TIME: 12:37 Exam/Review of Systems Vital Signs Vitals Vital Signs Date Temp Pulse Resp B/P (MAP) Pulse Ox O2 O2 Flow FiO2 Time Delivery Rate 02/05/19 101 31 111/46 100 Nasal 2.0 11:00 (67) Cannula 02/05/19 97.9 08:00 02/04/19 70 14:45 Intake and Output 02/04/19 02/04/19 02/05/19 1515:00 23:00 07:00 IntakeIntake Total 1613 ml 1739 ml 1880 ml OutputOutput Total 910 ml 510 ml 390 ml BalanceBalance 703 ml 1229 ml 1490 ml Exam Exam Review of Systems: CONSTITUTIONAL: No fevers, chills. PULMONARY: No sob CARDIOVASCULAR: No chest pain/palpitations GASTROINTESTINAL: No nausea/vomiting. GENITOURINARY: No hematuria/dysuria. MUSCULOSKELETAL: No myagias/arthalgias. PSYCHIATRIC: The patient denies depression. NEUROLOGIC: somewhat lethargic Constitutional: alert Psych: no complaints Head: normocephalic ENMT: mucosa pink and moist Neck: supple, jvd (9 cm water) Respiratory: diminished breath sounds Cardiovascular: irregular rhythm Gastrointestinal: soft, non-tender Musculoskeletal: muscle weakness (generalized) Extremities: edema (none) Neurological: lethargic (somewhat) Skin: other (breakdown with sloughing) Labs Result Diagram: 02/05/19 0445 02/05/19 0445 Results 24hrs Laboratory Tests Test 02/04/19 13:01 02/04/19 17:05 02/04/19 17:54 02/04/19 20:56 Bedside Glucose 219 226 H 203 Sodium Level 156 H Test 02/05/19 01:34 02/05/19 04:45 02/05/19 05:18 02/05/19 09:40 Bedside Glucose 233 H 117 62 L White Blood Count 29.0 H Red Blood Count 2.34 L Hemoglobin 6.7 *L Hematocrit 21.9 L Mean Corpuscular 93.6 Volume Mean Corpuscular 28.6 L Hemoglobin Mean Corpuscular 30.6 L Hemoglobin Concent Red Cell 19.9 H Distribution Width Platelet Count 101 L Mean Platelet Volume 12.9 H Immature 1.300 H Granulocytes % Neutrophils % 87.2 H Lymphocytes % 9.3 L Monocytes % 1.9 Eosinophils % 0.2 Basophils % 0.1 Nucleated Red Blood 0.8 H Cells % Immature 0.370 H Granulocytes # Neutrophils # 25.3 H Lymphocytes # 2.7 Monocytes # 0.5 Eosinophils # 0.1 Basophils # 0.0 Nucleated Red Blood 0.2 H Cells # Sodium Level 156 H Potassium Level 4.1 Chloride Level 120 H Carbon Dioxide Level 32 H Anion Gap 4 L Blood Urea Nitrogen 63 H Creatinine 1.56 H Est Glomerular Filtrat Rate mL/min Glucose Level 98 Calcium Level 7.1 L Phosphorus Level 3.0 Magnesium Level 1.6 L Test 02/05/19 10:05 02/05/19 10:22 02/05/19 10:25 02/05/19 10:43 Bedside Glucose 130 118 104 Prothrombin Time 23.0 H Prothrombin Time 1.8 Ratio INR International 2.03 Normalized Ratio Medications Medications Current Medications Lactulose (Enulose) 20 gm DAILY PRN PO CONSTIPATION; Start 01/17/19 at 18:17 Acetaminophen (Tylenol Tab) 650 mg Q4H PRN PO PAIN Last administered on 01/23/19at 22:48; Admin Dose 650 MG; Start 01/17/19 at 18:17 Miscellaneous Information (Pending [facility] Order For Wound Care) This patient ramirez... PRN PRN XX WOUND CARE; Start 01/17/19 at 18:17 Albuterol/ Ipratropium (Duoneb) 3 ml Q2H RESP THERAPY PRN HHN SHORTNESS OF BREATH; Start 01/17/19 at 18:17 Bisacodyl (Dulcolax) 10 mg BID PRN PO CONSTIPATION; Start 01/17/19 at 18:17; Status Hold Folic Acid (Folic Acid) 1 mg DAILY PO Last administered on 02/05/19at 09:46; Admin Dose 1 MG; Start 01/17/19 at 18:17 Latanoprost (Xalatan) 1 drop HS BOTH EYES Last administered on 02/04/19at 23:33; Admin Dose 1 DROP; Start 01/17/19 at 18:17 Nitroglycerin (Nitroglycerin (Sl Tab) 0.4 Mg) 0.4 tab Q5M PRN SL CHEST PAIN; Start 01/17/19 at 18:17 Nystatin (Nystatin Powder) 1 applic BID TOP Last administered on 02/05/19at 09:44; Admin Dose 1 APPLIC; Start 01/17/19 at 18:17 IV Flush (NS 3 ml) 3 ml PER PROTOCOL IV ; Start 01/17/19 at 18:17 Miscellaneous Information 1 ea NOTE XX ; Start 01/17/19 at 18:17 Glucose (Glutose) 15 gm Q15M PRN PO DECREASED GLUCOSE; Start 01/17/19 at 18:17 Glucose (Glutose) 22.5 gm Q15M PRN PO DECREASED GLUCOSE; Start 01/17/19 at 18:17 Dextrose (D50w Syringe) 25 ml Q15M PRN IV DECREASED GLUCOSE Last administered on 02/05/19at 09:50; Admin Dose 25 ML; Start 01/17/19 at 18:17 Dextrose (D50w Syringe) 50 ml Q15M PRN IV DECREASED GLUCOSE; Start 01/17/19 at 18:17 Glucagon (Glucagen) 1 mg Q15M PRN IM DECREASED GLUCOSE; Start 01/17/19 at 18:17 Glucose (Glutose) 15 gm Q15M PRN BUCCAL DECREASED GLUCOSE; Start 01/17/19 at 18:17 Zinc Sulfate (Zinc Sulfate) 220 mg DAILY PO Last administered on 02/05/19 09:43; Admin Dose 220 MG; Start 01/17/19 at 18:17 Ascorbic Acid (Vitamin C) 250 mg DAILY PO Last administered on 02/05/19 09:45; Admin Dose 250 MG; Start 01/17/19 at 18:17 Multi-Ingredient Ointment (Aquaphor Oint 52.5 Gm) 1 applic BID TOP Last administered on 02/05/19 09:43; Admin Dose 1 APPLIC; Start 01/17/19 at 18:17 Bisacodyl (Dulcolax Supp) 10 mg DAILY PRN [place] CONSTIPATION; Start 01/17/19 at 18:17 Zinc Acetate/ Diphenhydramine (Benadryl 2% Cr) 1 applic Q6H PRN TOP ITCHING Last administered on 01/26/19 07:54; Admin Dose 1 APPLIC; Start 01/19/19 at 16:37 IV Flush (NS 10 ml) 10 ml PRN PRN IV IV PROTOCOL; Start 01/20/19 at 14:30 Cyanocobalamin (Vitamin B12 Inj) 1,000 mcg Q7D IM Last administered on 02/03/19at 08:14; Admin Dose 1,000 MCG; Start 02/03/19 at 09:00 Metoprolol Tartrate (Lopressor) 5 mg Q4H PRN IV HR>110 Hold SBP<100; Start 01/26/19 at 14:30 Vancomycin HCl (Vanco Iv Per Pharmacy) VANCOMYCIN PER PHARMACY PER PROTOCOL XX ; Start 01/27/19 at 12:00 Enoxaparin Sodium (Lovenox) 60 mg DAILY SC Last administered on 02/03/19at 08:06; Admin Dose 60 MG; Start 01/28/19 at 09:00; Status Hold Lorazepam (Ativan) 1 mg Q2 PRN IV SEIZURES Last administered on 02/02/19at 09:18; Admin Dose 1 MG; Start 01/27/19 at 14:00 Metronidazole 100 ml @ 100 mls/hr Q8 IVPB Last administered on 02/05/19 05:14; Admin Dose 100 MLS/HR; Start 01/27/19 at 15:00 Atorvastatin Calcium (Lipitor) 40 mg QHS NGT Last administered on 02/04/19 20:58; Admin Dose 40 MG; Start 01/28/19 at 21:00 Docusate Sodium (Colace Liquid Cup) 100 mg BID NGT ; Start 01/27/19 at 22:00; Status Hold Terazosin HCl (Hytrin) 10 mg HS NGT Last administered on 02/04/19 20:58; Admin Dose 10 MG; Start 01/28/19 at 21:00 Levetiracetam 100 ml @ 400 mls/hr Q12 IVPB Last administered on 02/05/19 09:43; Admin Dose 400 MLS/HR; Start 01/28/19 at 09:00 Levothyroxine Sodium (Synthroid) 125 mcg BEFORE BREAKFAST NGT Last administered on 02/05/19 07:16; Admin Dose 125 MCG; Start 01/28/19 at 07:00 Ferrous Sulfate (Feosol Liquid Cup) 300 mg WITH MEALS GTB Last administered on 02/05/19 10:52; Admin Dose 300 MG; Start 01/28/19 at 11:30 Multivitamins (Multivitamin) 30 ml DAILY GTB Last administered on 02/05/19 09 :29; Admin Dose 30 ML; Start 01/28/19 at 11:00 Diagnostic Test (Pha) (Accu-Chek) 1 ea Q4 XX Last administered on 02/05/19 09:45; Admin Dose 1 EA; Start 01/28/19 at 13:00 Nystatin/ Triamcinolone Acetonide (Mycolog Oint) 1 applic BID TOP Last administered on 02/05/19 09:44; Admin Dose 1 APPLIC; Start 01/28/19 at 22:30 Insulin Aspart (Novolog Insulin Pen) NOVOLOG *MILD* ALGORI... Q4 SC Last administered on 02/05/19 01:38; Admin Dose 3 UNIT; Start 01/29/19 at 05:00 Albuterol/ Ipratropium (Duoneb) 3 ml Q6HWA RESP THERAPY HHN Last administered on 02/05/19 10:16; Admin Dose 3 ML; Start 01/29/19 at 14:00 Epoetin Dae-epbx (RETACRIT(non-esrd)) 40,000 unit Mo@1700 SC Last administered on 02/03/19 18:12; Admin Dose 40,000 UNIT; Start 02/03/19 at 17:00 Mupirocin (Bactroban) 1 applic BID TOP Last administered on 02/05/19 09:43; Admin Dose 1 APPLIC; Start 01/30/19 at 15:26; Stop 02/09/19 at 15:25 Tobramycin Sulfate/Sodium Chloride (Nilesh Inhal) 300 mg BID RESP THERAPY NEB Last administered on 02/05/19 10:16; Admin Dose 300 MG; Start 01/30/19 at 20:00 Insulin Glargine (Lantus) 10 units DAILY@2000 SC Last administered on 02/04/19 20:58; Admin Dose 10 UNITS; Start 01/31/19 at 20:00 Potassium Chloride (Potassium Chloride Pwd/Soln) 20 meq TID NGT Last administered on 02/05/19 09:46; Admin Dose 20 MEQ; Start 02/02/19 at 09:00 Dextrose 1,000 ml @ 100 mls/hr Q10H IV Last administered on 02/05/19 04:56; Admin Dose 100 MLS/HR; Start 02/03/19 at 11:00 Aztreonam 1 gm/ Dextrose 50 ml @ 100 mls/hr Q12 IVPB Last administered on 02/05/19 09:43; Admin Dose 100 MLS/HR; Start 02/03/19 at 21:00 Vancomycin HCl 750 mg/Dextrose 250 ml @ 125 mls/hr Q48H IVPB Last administered on 02/04/19 23:31; Admin Dose 125 MLS/HR; Start 02/04/19 at 23:00 Pantoprazole (Protonix Iv) 40 mg BID@06,18 IV ; Start 02/05/19 at 18:00 MARJORIE JAIN February 05, 2019 12:44
--- NOTE | 2019-02-05 13:47 | CONS ---
Assessment/Plan Assessment/Plan Hospital Course (Demo Recall) 88 yo male with multiple medical problems including DM, CRF, RA, PVD and chronic afib on Eliquis who presented to [facility] 01/05/19 with severe normocytic anemia and Hg ~7. 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 # Anemia-normocytic -Hg < 7. pt scheduled for 1 unit of PRBCs. pt may need repeat endoscopy -Multifactorial at this time due to iron deficiency, vitamin b12 deficiency and also likely anemia of chronic kidney disease and inflammation. Elevated Methylmalonic acid level noted -Patient still has low iron level even though ferritin is elevated. Ferritin likely elevated due to acute phase reactant. pt is now s/p IV iron. Pt is s/p EGD and colonoscopy by Dr Frost 01/09/19 which didn't find an obvious GI etiology to explain anemia. AVM or a small lesion could be missed due to poor prep. Pt likely needs capsule endoscopy -continue vitamin b12 weekly as vitamin b12 was low normal and methylmalonic acid was elevated. Continue folate as well. -No evidence of hemolysis at this time. -Transfuse to keep Hgb > 7. 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 -This may be a pseudocyst or a precancerous pancreatic lesion. -It has been growing in size but patient is asymptomatic. EUS with biopsy is recommended and can either be done inpatient or outpatient setting. -The patient at this time is unlikely a candidate for a whipple surgery however. Thank you to Dr. Alatorre for allowing [facility] to participate in the care of this patient. A total of 40 minutes was spent in consultation with this patient and all his questions were answered. Consultation Date/Type/Reason Admit Date/Time Jan 17, 2019 at 15:58 Initial Consult Date 01/18/19 Type of Consult hematology Reason for Consultation anemia Requesting Provider: IVAN AKHTAR MD Date/Time of Note DATE: 02/05/19 TIME: 13:45 24 HR Interval Summary Free Text/Dictation still with dark stool and dropping Hg Exam/Review of Systems Exam Vitals Vital Signs Date Temp Pulse Resp B/P (MAP) Pulse Ox O2 O2 Flow FiO2 Time Delivery Rate 02/05/19 87 23 104/45 100 Nasal 2.0 13:00 (64) Cannula 02/05/19 98.1 12:00 02/04/19 70 14:45 Intake and Output 02/04/19 02/04/19 02/05/19 1515:00 23:00 07:00 IntakeIntake Total 1613 ml 1739 ml 1880 ml OutputOutput Total 910 ml 510 ml 390 ml BalanceBalance 703 ml 1229 ml 1490 ml Constitutional: alert, oriented Psych: no complaints Head: normocephalic Eyes: nl conjunctiva ENMT: nl external ears & nose Neck: supple Respiratory: clear to auscultation Cardiovascular: regular rate and rhythm Gastrointestinal: soft Extremities: normal pulses Results Result Diagram: 02/05/19 0445 02/05/19 0445 Results 24hrs Laboratory Tests Test 02/04/19 17:05 02/04/19 17:54 02/04/19 20:56 02/05/19 01:34 Bedside Glucose 226 H 203 233 H Sodium Level 156 H Test 02/05/19 04:45 02/05/19 05:18 02/05/19 09:40 02/05/19 10:05 White Blood Count 29.0 H Red Blood Count 2.34 L Hemoglobin 6.7 *L Hematocrit 21.9 L Mean Corpuscular 93.6 Volume Mean Corpuscular 28.6 L Hemoglobin Mean Corpuscular 30.6 L Hemoglobin Concent Red Cell 19.9 H Distribution Width Platelet Count 101 L Mean Platelet Volume 12.9 H Immature 1.300 H Granulocytes % Neutrophils % 87.2 H Lymphocytes % 9.3 L Monocytes % 1.9 Eosinophils % 0.2 Basophils % 0.1 Nucleated Red Blood 0.8 H Cells % Immature 0.370 H Granulocytes # Neutrophils # 25.3 H Lymphocytes # 2.7 Monocytes # 0.5 Eosinophils # 0.1 Basophils # 0.0 Nucleated Red Blood 0.2 H Cells # Sodium Level 156 H Potassium Level 4.1 Chloride Level 120 H Carbon Dioxide Level 32 H Anion Gap 4 L Blood Urea Nitrogen 63 H Creatinine 1.56 H Est Glomerular Filtrat Rate mL/min Glucose Level 98 Calcium Level 7.1 L Phosphorus Level 3.0 Magnesium Level 1.6 L Bedside Glucose 117 62 L 130 Test 02/05/19 10:22 02/05/19 10:25 02/05/19 10:43 02/05/19 12:42 Prothrombin Time 23.0 H Prothrombin Time 1.8 Ratio INR International 2.03 Normalized Ratio Bedside Glucose 118 104 120 Medications Medication Current Medications Lactulose (Enulose) 20 gm DAILY PRN PO CONSTIPATION; Start 01/17/19 at 18:17 Acetaminophen (Tylenol Tab) 650 mg Q4H PRN PO PAIN Last administered on 01/23/19 22:48; Admin Dose 650 MG; Start 01/17/19 at 18:17 Miscellaneous Information (Pending [facility] Order For Wound Care) This patient ramirez... PRN PRN XX WOUND CARE; Start 01/17/19 at 18:17 Albuterol/ Ipratropium (Duoneb) 3 ml Q2H RESP THERAPY PRN HHN SHORTNESS OF BREATH; Start 01/17/19 at 18:17 Bisacodyl (Dulcolax) 10 mg BID PRN PO CONSTIPATION; Start 01/17/19 at 18:17; Status Hold Folic Acid (Folic Acid) 1 mg DAILY PO Last administered on 02/05/19at 09:46; Admin Dose 1 MG; Start 01/17/19 at 18:17 Latanoprost (Xalatan) 1 drop HS BOTH EYES Last administered on 02/04/19at 23:33; Admin Dose 1 DROP; Start 01/17/19 at 18:17 Nitroglycerin (Nitroglycerin (Sl Tab) 0.4 Mg) 0.4 tab Q5M PRN SL CHEST PAIN; Start 01/17/19 at 18:17 Nystatin (Nystatin Powder) 1 applic BID TOP Last administered on 02/05/19at 09:44; Admin Dose 1 APPLIC; Start 01/17/19 at 18:17 IV Flush (NS 3 ml) 3 ml PER PROTOCOL IV ; Start 01/17/19 at 18:17 Miscellaneous Information 1 ea NOTE XX ; Start 01/17/19 at 18:17 Glucose (Glutose) 15 gm Q15M PRN PO DECREASED GLUCOSE; Start 01/17/19 at 18:17 Glucose (Glutose) 22.5 gm Q15M PRN PO DECREASED GLUCOSE; Start 01/17/19 at 18:17 Dextrose (D50w Syringe) 25 ml Q15M PRN IV DECREASED GLUCOSE Last administered on 02/05/19at 09:50; Admin Dose 25 ML; Start 01/17/19 at 18:17 Dextrose (D50w Syringe) 50 ml Q15M PRN IV DECREASED GLUCOSE; Start 01/17/19 at 18:17 Glucagon (Glucagen) 1 mg Q15M PRN IM DECREASED GLUCOSE; Start 01/17/19 at 18:17 Glucose (Glutose) 15 gm Q15M PRN BUCCAL DECREASED GLUCOSE; Start 01/17/19 at 18:17 Zinc Sulfate (Zinc Sulfate) 220 mg DAILY PO Last administered on 02/05/19at 09:43; Admin Dose 220 MG; Start 01/17/19 at 18:17 Ascorbic Acid (Vitamin C) 250 mg DAILY PO Last administered on 02/05/19 09:45; Admin Dose 250 MG; Start 01/17/19 at 18:17 Multi-Ingredient Ointment (Aquaphor Oint 52.5 Gm) 1 applic BID TOP Last administered on 02/05/19at 09:43; Admin Dose 1 APPLIC; Start 01/17/19 at 18:17 Bisacodyl (Dulcolax Supp) 10 mg DAILY PRN [place] CONSTIPATION; Start 01/17/19 at 18:17 Zinc Acetate/ Diphenhydramine (Benadryl 2% Cr) 1 applic Q6H PRN TOP ITCHING Last administered on 01/26/19at 07:54; Admin Dose 1 APPLIC; Start 01/19/19 at 16:37 IV Flush (NS 10 ml) 10 ml PRN PRN IV IV PROTOCOL; Start 01/20/19 at 14:30 Cyanocobalamin (Vitamin B12 Inj) 1,000 mcg Q7D IM Last administered on 02/03/19at 08:14; Admin Dose 1,000 MCG; Start 02/03/19 at 09:00 Metoprolol Tartrate (Lopressor) 5 mg Q4H PRN IV HR>110 Hold SBP<100; Start 01/26/19 at 14:30 Vancomycin HCl (Vanco Iv Per Pharmacy) VANCOMYCIN PER PHARMACY PER PROTOCOL XX ; Start 01/27/19 at 12:00 Enoxaparin Sodium (Lovenox) 60 mg DAILY SC Last administered on 02/03/19at 08:06; Admin Dose 60 MG; Start 01/28/19 at 09:00; Status Hold Lorazepam (Ativan) 1 mg Q2 PRN IV SEIZURES Last administered on 02/02/19 09:18; Admin Dose 1 MG; Start 01/27/19 at 14:00 Metronidazole 100 ml @ 100 mls/hr Q8 IVPB Last administered on 02/05/19 05:14; Admin Dose 100 MLS/HR; Start 01/27/19 at 15:00 Atorvastatin Calcium (Lipitor) 40 mg QHS NGT Last administered on 02/04/19 20:58; Admin Dose 40 MG; Start 01/28/19 at 21:00 Docusate Sodium (Colace Liquid Cup) 100 mg BID NGT ; Start 01/27/19 at 22:00; Status Hold Terazosin HCl (Hytrin) 10 mg HS NGT Last administered on 02/04/19 20:58; Admin Dose 10 MG; Start 01/28/19 at 21:00 Levetiracetam 100 ml @ 400 mls/hr Q12 IVPB Last administered on 02/05/19 09:43; Admin Dose 400 MLS/HR; Start 01/28/19 at 09:00 Levothyroxine Sodium (Synthroid) 125 mcg BEFORE BREAKFAST NGT Last administered on 02/05/19 07:16; Admin Dose 125 MCG; Start 01/28/19 at 07:00 Ferrous Sulfate (Feosol Liquid Cup) 300 mg WITH MEALS GTB Last administered on 02/05/19 10:52; Admin Dose 300 MG; Start 01/28/19 at 11:30 Multivitamins (Multivitamin) 30 ml DAILY GTB Last administered on 02/05/19 09:29; Admin Dose 30 ML; Start 01/28/19 at 11:00 Diagnostic Test (Pha) (Accu-Chek) 1 ea Q4 XX Last administered on 02/05/19 09:45; Admin Dose 1 EA; Start 01/28/19 at 13:00 Nystatin/ Triamcinolone Acetonide (Mycolog Oint) 1 applic BID TOP Last administered on 02/05/19 09:44; Admin Dose 1 APPLIC; Start 01/28/19 at 22:30 Insulin Aspart (Novolog Insulin Pen) NOVOLOG *MILD* ALGORI... Q4 SC Last administered on 02/05/19 01:38; Admin Dose 3 UNIT; Start 01/29/19 at 05:00 Albuterol/ Ipratropium (Duoneb) 3 ml Q6HWA RESP THERAPY HHN Last administered on 02/05/19 10:16; Admin Dose 3 ML; Start 01/29/19 at 14:00 Epoetin Dae-epbx (RETACRIT(non-esrd)) 40,000 unit Mo@1700 SC Last administered on 02/03/19 18:12; Admin Dose 40,000 UNIT; Start 02/03/19 at 17:00 Mupirocin (Bactroban) 1 applic BID TOP Last administered on 02/05/19 09:43; Admin Dose 1 APPLIC; Start 01/30/19 at 15:26; Stop 02/09/19 at 15:25 Tobramycin Sulfate/Sodium Chloride (Nilesh Inhal) 300 mg BID RESP THERAPY NEB Last administered on 02/05/19 10:16; Admin Dose 300 MG; Start 01/30/19 at 20:00 Insulin Glargine (Lantus) 10 units DAILY@2000 SC Last administered on 02/04/19 20:58; Admin Dose 10 UNITS; Start 01/31/19 at 20:00 Potassium Chloride (Potassium Chloride Pwd/Soln) 20 meq TID NGT Last administered on 02/05/19 12:44; Admin Dose 20 MEQ; Start 02/02/19 at 09:00 Dextrose 1,000 ml @ 100 mls/hr Q10H IV Last administered on 02/05/19 04:56; Admin Dose 100 MLS/HR; Start 02/03/19 at 11:00 Aztreonam 1 gm/ Dextrose 50 ml @ 100 mls/hr Q12 IVPB Last administered on 02/05/19 09:43; Admin Dose 100 MLS/HR; Start 02/03/19 at 21:00 Vancomycin HCl 750 mg/Dextrose 250 ml @ 125 mls/hr Q48H IVPB Last administered on 02/04/19 23:31; Admin Dose 125 MLS/HR; Start 02/04/19 at 23:00 Pantoprazole (Protonix Iv) 40 mg BID@06,18 IV ; Start 02/05/19 at 18:00 Metoprolol Tartrate (Lopressor) 12.5 mg BID PO ; Start 02/05/19 at 21:00 OREN MARSH M.D. February 05, 2019 13:47
--- NOTE | 2019-02-05 13:53 | CONS ---
Assessment/Plan Assessment/Plan Hospital Course (Demo Recall) No acute changes overnight patient is lethargic noncommunicative in no distress he is afebrile WBC today 29 H&H 6.7 and 21.9 platelets 101 neutrophils 87.2 BUN 63 creatinine 1.56 Skin biopsy revealed no evidence of vasculitis no evidence of malignancy. Please see full report in chart Wound culture grew Corynebacterium species. Sputum culture grew E. coli Antimicrobials: Vancomycin, aztreonam, Flagyl, tobramycin inhalation Indwelling: Left subclavian triple-lumen catheter, Wade catheter, NG tube Allergy: Penicillin, sulfa Physical examination: Obese well-developed chronically ill-appearing - [place] man who is lethargic, in no distress. Head atraumatic normocephalic sclera nonicteric. Neck is supple chest rise symmetrical breath sounds diminished bases. Heart: S1-S2. Abdomen obese soft bowel sounds present extremities without cyanosis, bilateral edema Assessment: 1. Severe sepsis s/p shock 2. Acute encephalopathy 3. Seizures 4. Healthcare acquired, possible aspiration pneumonia 5. Coronary artery disease/history of CABG 6. Advanced rheumatoid arthritis 5. Chronic atrial fibrillation 6. Diabetes 7. BPH 9. Acute on chronic anemia===> s/p EGD/colonoscopy 01/09/19 10. Status post right epididymitis 11. Pancreatic lesion per CT, unlikely neoplasm per oncology notes 12. 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, s/p punch bx Plan: Clinically unchanged, continue present care, antibiotics, aspiration precautions, follow skin biopsy results== sent to [facility] for final identification Discussed with RN Consultation Date/Type/Reason Admit Date/Time Jan 17, 2019 at 15:58 Initial Consult Date 01/18/19 Type of Consult id Requesting Provider: IVAN AKHTAR MD Date/Time of Note DATE: 02/05/19 TIME: 13:53 Exam/Review of Systems Exam Vitals Vital Signs Date Temp Pulse Resp B/P (MAP) Pulse Ox O2 O2 Flow FiO2 Time Delivery Rate 02/05/19 87 23 104/45 100 Nasal 2.0 13:00 (64) Cannula 02/05/19 98.1 12:00 02/04/19 70 14:45 Intake and Output 02/04/19 02/04/19 02/05/19 1515:00 23:00 07:00 IntakeIntake Total 1613 ml 1739 ml 1880 ml OutputOutput Total 910 ml 510 ml 390 ml BalanceBalance 703 ml 1229 ml 1490 ml Results Result Diagram: 02/05/19 0445 02/05/19 0445 Results 24hrs Laboratory Tests Test 02/04/19 17:05 02/04/19 17:54 02/04/19 20:56 02/05/19 01:34 Bedside Glucose 226 H 203 233 H Sodium Level 156 H Test 02/05/19 04:45 02/05/19 05:18 02/05/19 09:40 02/05/19 10:05 White Blood Count 29.0 H Red Blood Count 2.34 L Hemoglobin 6.7 *L Hematocrit 21.9 L Mean Corpuscular 93.6 Volume Mean Corpuscular 28.6 L Hemoglobin Mean Corpuscular 30.6 L Hemoglobin Concent Red Cell 19.9 H Distribution Width Platelet Count 101 L Mean Platelet Volume 12.9 H Immature 1.300 H Granulocytes % Neutrophils % 87.2 H Lymphocytes % 9.3 L Monocytes % 1.9 Eosinophils % 0.2 Basophils % 0.1 Nucleated Red Blood 0.8 H Cells % Immature 0.370 H Granulocytes # Neutrophils # 25.3 H Lymphocytes # 2.7 Monocytes # 0.5 Eosinophils # 0.1 Basophils # 0.0 Nucleated Red Blood 0.2 H Cells # Sodium Level 156 H Potassium Level 4.1 Chloride Level 120 H Carbon Dioxide Level 32 H Anion Gap 4 L Blood Urea Nitrogen 63 H Creatinine 1.56 H Est Glomerular Filtrat Rate mL/min Glucose Level 98 Calcium Level 7.1 L Phosphorus Level 3.0 Magnesium Level 1.6 L Bedside Glucose 117 62 L 130 Test 02/05/19 10:22 02/05/19 10:25 02/05/19 10:43 02/05/19 12:42 Prothrombin Time 23.0 H Prothrombin Time 1.8 Ratio INR International 2.03 Normalized Ratio Bedside Glucose 118 104 120 Medications Medication Current Medications Lactulose (Enulose) 20 gm DAILY PRN PO CONSTIPATION; Start 01/17/19 at 18:17 Acetaminophen (Tylenol Tab) 650 mg Q4H PRN PO PAIN Last administered on 01/23/19at 22:48; Admin Dose 650 MG; Start 01/17/19 at 18:17 Miscellaneous Information (Pending Santyl Order For Wound Care) This patient ramirez... PRN PRN XX WOUND CARE; Start 01/17/19 at 18:17 Albuterol/ Ipratropium (Duoneb) 3 ml Q2H RESP THERAPY PRN HHN SHORTNESS OF BREATH; Start 01/17/19 at 18:17 Bisacodyl (Dulcolax) 10 mg BID PRN PO CONSTIPATION; Start 01/17/19 at 18:17; Status Hold Folic Acid (Folic Acid) 1 mg DAILY PO Last administered on 02/05/19at 09:46; Admin Dose 1 MG; Start 01/17/19 at 18:17 Latanoprost (Xalatan) 1 drop HS BOTH EYES Last administered on 02/04/19at 23:33; Admin Dose 1 DROP; Start 01/17/19 at 18:17 Nitroglycerin (Nitroglycerin (Sl Tab) 0.4 Mg) 0.4 tab Q5M PRN SL CHEST PAIN; Start 01/17/19 at 18:17 Nystatin (Nystatin Powder) 1 applic BID TOP Last administered on 02/05/19at 09:44; Admin Dose 1 APPLIC; Start 01/17/19 at 18:17 IV Flush (NS 3 ml) 3 ml PER PROTOCOL IV ; Start 01/17/19 at 18:17 Miscellaneous Information 1 ea NOTE XX ; Start 01/17/19 at 18:17 Glucose (Glutose) 15 gm Q15M PRN PO DECREASED GLUCOSE; Start 01/17/19 at 18:17 Glucose (Glutose) 22.5 gm Q15M PRN PO DECREASED GLUCOSE; Start 01/17/19 at 18:17 Dextrose (D50w Syringe) 25 ml Q15M PRN IV DECREASED GLUCOSE Last administered on 02/05/19at 09:50; Admin Dose 25 ML; Start 01/17/19 at 18:17 Dextrose (D50w Syringe) 50 ml Q15M PRN IV DECREASED GLUCOSE; Start 01/17/19 at 18:17 Glucagon (Glucagen) 1 mg Q15M PRN IM DECREASED GLUCOSE; Start 01/17/19 at 18:17 Glucose (Glutose) 15 gm Q15M PRN BUCCAL DECREASED GLUCOSE; Start 01/17/19 at 18:17 Zinc Sulfate (Zinc Sulfate) 220 mg DAILY PO Last administered on 02/05/19 09:43; Admin Dose 220 MG; Start 01/17/19 at 18:17 Ascorbic Acid (Vitamin C) 250 mg DAILY PO Last administered on 02/05/19 09:45; Admin Dose 250 MG; Start 01/17/19 at 18:17 Multi-Ingredient Ointment (Aquaphor Oint 52.5 Gm) 1 applic BID TOP Last administered on 02/05/19 09:43; Admin Dose 1 APPLIC; Start 01/17/19 at 18:17 Bisacodyl (Dulcolax Supp) 10 mg DAILY PRN IN CONSTIPATION; Start 01/17/19 at 18:17 Zinc Acetate/ Diphenhydramine (Benadryl 2% Cr) 1 applic Q6H PRN TOP ITCHING Last administered on 01/26/19 07:54; Admin Dose 1 APPLIC; Start 01/19/19 at 16:37 IV Flush (NS 10 ml) 10 ml PRN PRN IV IV PROTOCOL; Start 01/20/19 at 14:30 Cyanocobalamin (Vitamin B12 Inj) 1,000 mcg Q7D IM Last administered on 02/03/19 08:14; Admin Dose 1,000 MCG; Start 02/03/19 at 09:00 Metoprolol Tartrate (Lopressor) 5 mg Q4H PRN IV HR>110 Hold SBP<100; Start 01/26/19 at 14:30 Vancomycin HCl (Vanco Iv Per Pharmacy) VANCOMYCIN PER PHARMACY PER PROTOCOL XX ; Start 01/27/19 at 12:00 Enoxaparin Sodium (Lovenox) 60 mg DAILY SC Last administered on 02/03/19 08:06; Admin Dose 60 MG; Start 01/28/19 at 09:00; Status Hold Lorazepam (Ativan) 1 mg Q2 PRN IV SEIZURES Last administered on 02/02/19 09:18; Admin Dose 1 MG; Start 01/27/19 at 14:00 Metronidazole 100 ml @ 100 mls/hr Q8 IVPB Last administered on 02/05/19 05:14; Admin Dose 100 MLS/HR; Start 01/27/19 at 15:00 Atorvastatin Calcium (Lipitor) 40 mg QHS NGT Last administered on 02/04/19 20:58; Admin Dose 40 MG; Start 01/28/19 at 21:00 Docusate Sodium (Colace Liquid Cup) 100 mg BID NGT ; Start 01/27/19 at 22:00; Status Hold Terazosin HCl (Hytrin) 10 mg HS NGT Last administered on 02/04/19 20:58; Admin Dose 10 MG; Start 01/28/19 at 21:00 Levetiracetam 100 ml @ 400 mls/hr Q12 IVPB Last administered on 02/05/19 09:43; Admin Dose 400 MLS/HR; Start 01/28/19 at 09:00 Levothyroxine Sodium (Synthroid) 125 mcg BEFORE BREAKFAST NGT Last administered on 02/05/19 07:16; Admin Dose 125 MCG; Start 01/28/19 at 07:00 Ferrous Sulfate (Feosol Liquid Cup) 300 mg WITH MEALS GTB Last administered on 02/05/19 10:52; Admin Dose 300 MG; Start 01/28/19 at 11:30 Multivitamins (Multivitamin) 30 ml DAILY GTB Last administered on 02/05/19 09:29; Admin Dose 30 ML; Start 01/28/19 at 11:00 Diagnostic Test (Pha) (Accu-Chek) 1 ea Q4 XX Last administered on 02/05/19 09:45; Admin Dose 1 EA; Start 01/28/19 at 13:00 Nystatin/ Triamcinolone Acetonide (Mycolog Oint) 1 applic BID TOP Last administ ered on 02/05/19 09:44; Admin Dose 1 APPLIC; Start 01/28/19 at 22:30 Insulin Aspart (Novolog Insulin Pen) NOVOLOG *MILD* ALGORI... Q4 SC Last administered on 02/05/19 01:38; Admin Dose 3 UNIT; Start 01/29/19 at 05:00 Albuterol/ Ipratropium (Duoneb) 3 ml Q6HWA RESP THERAPY HHN Last administered on 02/05/19 10:16; Admin Dose 3 ML; Start 01/29/19 at 14:00 Epoetin Dae-epbx (RETACRIT(non-esrd)) 40,000 unit Mo@1700 SC Last administered on 02/03/19 18:12; Admin Dose 40,000 UNIT; Start 02/03/19 at 17:00 Mupirocin (Bactroban) 1 applic BID TOP Last administered on 02/05/19 09:43; Admin Dose 1 APPLIC; Start 01/30/19 at 15:26; Stop 02/09/19 at 15:25 Tobramycin Sulfate/Sodium Chloride (Nilesh Inhal) 300 mg BID RESP THERAPY NEB Last administered on 02/05/19 10:16; Admin Dose 300 MG; Start 01/30/19 at 20:00 Insulin Glargine (Lantus) 10 units DAILY@2000 SC Last administered on 02/04/19 20:58; Admin Dose 10 UNITS; Start 01/31/19 at 20:00 Potassium Chloride (Potassium Chloride Pwd/Soln) 20 meq TID NGT Last administered on 02/05/19 12:44; Admin Dose 20 MEQ; Start 02/02/19 at 09:00 Dextrose 1,000 ml @ 100 mls/hr Q10H IV Last administered on 02/05/19 04:56; Admin Dose 100 MLS/HR; Start 02/03/19 at 11:00 Aztreonam 1 gm/ Dextrose 50 ml @ 100 mls/hr Q12 IVPB Last administered on 02/05/19 09:43; Admin Dose 100 MLS/HR; Start 02/03/19 at 21:00 Vancomycin HCl 750 mg/Dextrose 250 ml @ 125 mls/hr Q48H IVPB Last administered on 02/04/19 23:31; Admin Dose 125 MLS/HR; Start 02/04/19 at 23:00 Pantoprazole (Protonix Iv) 40 mg BID@06,18 IV ; Start 02/05/19 at 18:00 Metoprolol Tartrate (Lopressor) 12.5 mg BID PO ; Start 02/05/19 at 21:00 LUCIAN HARKINS NP February 05, 2019 13:53
--- NOTE | 2019-02-05 14:31 | CONS ---
Assessment/Plan Assessment/Plan Hospital Course 88 yo M with multiple comorbidities who initially presented for evaluation of hiccups. He was noted to become acutely altered... for which neurology is consulted. He was noted to develop ams on 01/21 around 7pm and noted on 01/22 to be unresponsive... prompting a code stroke activation. The clinical picture suggests an acute toxic-metabolic encephalopathy.. Meningoencephalitis is, though, not yet excluded. MRI brain is without acute ischemia, though notable for chronic infarcts. 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 On 02/03, the pt was again transferred to ICU for hypothermia. P: Cont Keppra 500 BID for now Ativan IV PRN prolonged seizure (> 5 min) Agree w/ ASA/Lipitor daily pending the above Limit sedating medications where possible Other medical management per primary Will follow Consultation Date/Type/Reason Admit Date/Time Jan 17, 2019 at 15:58 Type of Consult Neurology Reason for Consultation ams; eval for stroke Requesting Provider: IVAN AKHTAR MD Date/Time of Note DATE: 02/05/19 TIME: 14:31 24 HR Interval Summary Free Text/Dictation Continues critical care. Currently receiving 1u PRBC for low hgb. Exam Vital Signs Vitals Vital Signs Date Temp Pulse Resp B/P (MAP) Pulse Ox O2 O2 Flow FiO2 Time Delivery Rate 02/05/19 87 23 104/45 100 Nasal 2.0 13:00 (64) Cannula 02/05/19 98.1 12:00 02/04/19 70 14:45 Intake and Output 02/04/19 02/04/19 02/05/19 1515:00 23:00 07:00 IntakeIntake Total 1613 ml 1739 ml 1880 ml OutputOutput Total 910 ml 510 ml 390 ml BalanceBalance 703 ml 1229 ml 1490 ml Exam PE: Gen Appearance: No Apparent Distress HEENT: Normocephalic; on nasal cannula Cardiovascular: Regular rate Abdomen: Soft Extremities: Dry, skin peeling NE: The patient was asleep, though easily arousable. Sparsely verbal. Unable to track. Follows simple appendicular commands. Cranial nerve examination was limited by mental status. Pupils were equal and reactive to light. There was no afferent pupillary defect. Funduscopic examination was limited. Face was grossly symmetric. Tone was normal. Muscle bulk was normal. I did not see fasciculations. The patient was generally weak, though antigravity in his L arm. Coordination and gait testing was limited by mental status. Arm and leg reflexes were within normal limits and symmetric. Gray's sign was absent. Plantar responses were flexor. NEGRA CORONA NP February 05, 2019 14:31
[2019-02-05] MEDS ORDERED: PHYTONADIONE (1 MG/ML PO SYG) PO ONE (15:00)
--- NOTE | 2019-02-05 17:11 | CONS ---
Assessment/Plan Assessment/Plan Assessment/Plan (Daily) Assessment/Plan Hospital Course (Demo Recall) 88 [facility] and febrile 1. Severe anemia likely due to chronic disease, last work up while admitted to [facility] about a week ago was neg for GI bleeding, including EGD/colon which was done -s/p EGD and colonoscopy by Dr Verdin 01/09/19 which didn't find an obvious GI etiology to explain anemia. AVM or a small lesion could be missed due to poor prep. Pt likely needs capsule endoscopy -Neg fob, elevate retic, Low iron, tibc, [place] [id number] 2. Cystic lesion along pancreas body - 4.3 cm cystic lesion along the pancreas body, enlarged since 10/10/2012 (previously 2.4 cm). 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 -CEA wnl 3. Severe gastritis 4. Hemorrhoids 5. Hital hernia 6. A fib, -eliquis was stopped 01/06 during previous admission, on ASA 7. COPD 8. HTN 9. Hypothyroidism 10. Bilateral groin cellulitis 11. Rheumatoid arthritis. 12. Diabetes mellitus. 13. Peripheral vascular disease. 14. CHF 15. 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 Sepsis secondary to pneumonia 18. Encephalopathy secondary to sepsis 19. Hypothermia 20. Coagulopathy -INR 1.77 21 anemia, of chronic disease so far no evidence of active GI bleeding Plan: Supportive ICU care Continue tube feeds, monitor residuals Pt will need outpatient EUS to evaluate pancreatic mass Recommend capsule endoscopy as outpatient Transfusion and monitor H&H closely Will send stool for occult blood discussed with the staff nurse Consultation Date/Type/Reason Admit Date/Time Jan 17, 2019 at 15:58 Initial Consult Date 01/18/19 Requesting Provider: IVAN AKHTAR MD Date/Time of Note DATE: 02/05/19 TIME: 17:09 24 HR Interval Summary Free Text/Dictation Patient had a drop in hematocrit. As per the staff nurse no bowel movement today. Discussed with the daughter who thinks the drop in hematocrit is due to the chronic disease Constitutional: disoriented Exam/Review of Systems Exam Vitals Vital Signs Date Temp Pulse Resp B/P (MAP) Pulse Ox O2 O2 Flow FiO2 Time Delivery Rate 02/05/19 85 16:00 02/05/19 22 100 Nasal 2.0 15:08 Cannula 02/05/19 126/49 15:00 (74) 02/05/19 98.1 12:00 02/04/19 70 14:45 Intake and Output 02/04/19 02/04/19 02/05/19 1515:00 23:00 07:00 IntakeIntake Total 1613 ml 1739 ml 1880 ml OutputOutput Total 910 ml 510 ml 390 ml BalanceBalance 703 ml 1229 ml 1490 ml Psych: confusion Cardiovascular: regular rate and rhythm, nl pulses Musculoskeletal: nl extremities to inspection, nl gait and stance Results Result Diagram: 02/05/19 0445 02/05/19 0445 Results 24hrs Laboratory Tests Test 02/04/19 17:54 02/04/19 20:56 02/05/19 01:34 02/05/19 04:45 Sodium Level 156 H 156 H Bedside Glucose 203 233 H White Blood Count 29.0 H Red Blood Count 2.34 L Hemoglobin 6.7 *L Hematocrit 21.9 L Mean Corpuscular 93.6 Volume Mean Corpuscular 28.6 L Hemoglobin Mean Corpuscular 30.6 L Hemoglobin Concent Red Cell 19.9 H Distribution Width Platelet Count 101 L Mean Platelet Volume 12.9 H Immature 1.300 H Granulocytes % Neutrophils % 87.2 H Lymphocytes % 9.3 L Monocytes % 1.9 Eosinophils % 0.2 Basophils % 0.1 Nucleated Red Blood 0.8 H Cells % Immature 0.370 H Granulocytes # Neutrophils # 25.3 H Lymphocytes # 2.7 Monocytes # 0.5 Eosinophils # 0.1 Basophils # 0.0 Nucleated Red Blood 0.2 H Cells # Potassium Level 4.1 Chloride Level 120 H Carbon Dioxide Level 32 H Anion Gap 4 L Blood Urea Nitrogen 63 H Creatinine 1.56 H Est Glomerular Filtrat Rate mL/min Glucose Level 98 Calcium Level 7.1 L Phosphorus Level 3.0 Magnesium Level 1.6 L Test 02/05/19 05:18 02/05/19 09:40 02/05/19 10:05 02/05/19 10:22 Bedside Glucose 117 62 L 130 Prothrombin Time 23.0 H Prothrombin Time 1.8 Ratio INR International 2.03 Normalized Ratio Test 02/05/19 10:25 02/05/19 10:43 02/05/19 12:42 Bedside Glucose 118 104 120 Medications Medication Current Medications Lactulose (Enulose) 20 gm DAILY PRN PO CONSTIPATION; Start 01/17/19 at 18:17 Acetaminophen (Tylenol Tab) 650 mg Q4H PRN PO PAIN Last administered on 01/23/19at 22:48; Admin Dose 650 MG; Start 01/17/19 at 18:17 Miscellaneous Information (Pending Santyl Order For Wound Care) This patient ramirez... PRN PRN XX WOUND CARE; Start 01/17/19 at 18:17 Albuterol/ Ipratropium (Duoneb) 3 ml Q2H RESP THERAPY PRN HHN SHORTNESS OF BREATH; Start 01/17/19 at 18:17 Bisacodyl (Dulcolax) 10 mg BID PRN PO CONSTIPATION; Start 01/17/19 at 18:17; Status Hold Folic Acid (Folic Acid) 1 mg DAILY PO Last administered on 02/05/19at 09:46; Admin Dose 1 MG; Start 01/17/19 at 18:17 Latanoprost (Xalatan) 1 drop HS BOTH EYES Last administered on 02/04/19at 23:33; Admin Dose 1 DROP; Start 01/17/19 at 18:17 Nitroglycerin (Nitroglycerin (Sl Tab) 0.4 Mg) 0.4 tab Q5M PRN SL CHEST PAIN; Start 01/17/19 at 18:17 Nystatin (Nystatin Powder) 1 applic BID TOP Last administered on 02/05/19at 09:44; Admin Dose 1 APPLIC; Start 01/17/19 at 18:17 IV Flush (NS 3 ml) 3 ml PER PROTOCOL IV ; Start 01/17/19 at 18:17 Miscellaneous Information 1 ea NOTE XX ; Start 01/17/19 at 18:17 Glucose (Glutose) 15 gm Q15M PRN PO DECREASED GLUCOSE; Start 01/17/19 at 18:17 Glucose (Glutose) 22.5 gm Q15M PRN PO DECREASED GLUCOSE; Start 01/17/19 at 18:17 Dextrose (D50w Syringe) 25 ml Q15M PRN IV DECREASED GLUCOSE Last administered on 02/05/19at 09:50; Admin Dose 25 ML; Start 01/17/19 at 18:17 Dextrose (D50w Syringe) 50 ml Q15M PRN IV DECREASED GLUCOSE; Start 01/17/19 at 18:17 Glucagon (Glucagen) 1 mg Q15M PRN IM DECREASED GLUCOSE; Start 01/17/19 at 18:17 Glucose (Glutose) 15 gm Q15M PRN BUCCAL DECREASED GLUCOSE; Start 01/17/19 at 18:17 Zinc Sulfate (Zinc Sulfate) 220 mg DAILY PO Last administered on 02/05/19 09:43; Admin Dose 220 MG; Start 01/17/19 at 18:17 Ascorbic Acid (Vitamin C) 250 mg DAILY PO Last administered on 02/05/19 09:45; Admin Dose 250 MG; Start 01/17/19 at 18:17 Multi-Ingredient Ointment (Aquaphor Oint 52.5 Gm) 1 applic BID TOP Last administered on 02/05/19 09:43; Admin Dose 1 APPLIC; Start 01/17/19 at 18:17 Bisacodyl (Dulcolax Supp) 10 mg DAILY PRN [place] CONSTIPATION; Start 01/17/19 at 18:17 Zinc Acetate/ Diphenhydramine (Benadryl 2% Cr) 1 applic Q6H PRN TOP ITCHING Last administered on 01/26/19 07:54; Admin Dose 1 APPLIC; Start 01/19/19 at 16:37 IV Flush (NS 10 ml) 10 ml PRN PRN IV IV PROTOCOL; Start 01/20/19 at 14:30 Cyanocobalamin (Vitamin B12 Inj) 1,000 mcg Q7D IM Last administered on 02/03/19 08:14; Admin Dose 1,000 MCG; Start 02/03/19 at 09:00 Metoprolol Tartrate (Lopressor) 5 mg Q4H PRN IV HR>110 Hold SBP<100; Start 01/26/19 at 14:30 Vancomycin HCl (Vanco Iv Per Pharmacy) VANCOMYCIN PER PHARMACY PER PROTOCOL XX ; Start 01/27/19 at 12:00 Enoxaparin Sodium (Lovenox) 60 mg DAILY SC Last administered on 02/03/19 08:06; Admin Dose 60 MG; Start 01/28/19 at 09:00; Status Hold Lorazepam (Ativan) 1 mg Q2 PRN IV SEIZURES Last administered on 02/02/19 09:18; Admin Dose 1 MG; Start 01/27/19 at 14:00 Metronidazole 100 ml @ 100 mls/hr Q8 IVPB Last administered on 02/05/19 14:52; Admin Dose 100 MLS/HR; Start 01/27/19 at 15:00 Atorvastatin Calcium (Lipitor) 40 mg QHS NGT Last administered on 02/04/19 20:58; Admin Dose 40 MG; Start 01/28/19 at 21:00 Docusate Sodium (Colace Liquid Cup) 100 mg BID NGT ; Start 01/27/19 at 22:00; Status Hold Terazosin HCl (Hytrin) 10 mg HS NGT Last administered on 02/04/19 20:58; Admin Dose 10 MG; Start 01/28/19 at 21:00 Levetiracetam 100 ml @ 400 mls/hr Q12 IVPB Last administered on 02/05/19 09:43; Admin Dose 400 MLS/HR; Start 01/28/19 at 09:00 Levothyroxine Sodium (Synthroid) 125 mcg BEFORE BREAKFAST NGT Last administered on 02/05/19 07:16; Admin Dose 125 MCG; Start 01/28/19 at 07:00 Ferrous Sulfate (Feosol Liquid Cup) 300 mg WITH MEALS GTB Last administered on 02/05/19 10:52; Admin Dose 300 MG; Start 01/28/19 at 11:30 Multivitamins (Multivitamin) 30 ml DAILY GTB Last administered on 02/05/19 09:29; Admin Dose 30 ML; Start 01/28/19 at 11:00 Diagnostic Test (Pha) (Accu-Chek) 1 ea Q4 XX Last administered on 02/05/19 09:45; Admin Dose 1 EA; Start 01/28/19 at 13:00 Nystatin/ Triamcinolone Acetonide (Mycolog Oint) 1 applic BID TOP Last administered on 02/05/19 09:44; Admin Dose 1 APPLIC; Start 01/28/19 at 22:30 Insulin Aspart (Novolog Insulin Pen) NOVOLOG *MILD* ALGORI... Q4 SC Last administered on 02/05/19 01:38; Admin Dose 3 UNIT; Start 01/29/19 at 05:00 Albuterol/ Ipratropium (Duoneb) 3 ml Q6HWA RESP THERAPY HHN Last administered on 02/05/19 15:06; Admin Dose 3 ML; Start 01/29/19 at 14:00 Epoetin Dae-epbx (RETACRIT(non-esrd)) 40,000 unit Mo@1700 SC Last administered on 02/03/19 18:12; Admin Dose 40,000 UNIT; Start 02/03/19 at 17:00 Mupirocin (Bactroban) 1 applic BID TOP Last administered on 02/05/19 09:43; Admin Dose 1 APPLIC; Start 01/30/19 at 15:26; Stop 02/09/19 at 15:25 Tobramycin Sulfate/Sodium Chloride (Nilesh Inhal) 300 mg BID RESP THERAPY NEB Last administered on 02/05/19 10:16; Admin Dose 300 MG; Start 01/30/19 at 20:00 Insulin Glargine (Lantus) 10 units DAILY@2000 SC Last administered on 02/04/19 20:58; Admin Dose 10 UNITS; Start 01/31/19 at 20:00 Potassium Chloride (Potassium Chloride Pwd/Soln) 20 meq TID NGT Last administered on 02/05/19 12:44; Admin Dose 20 MEQ; Start 02/02/19 at 09:00 Dextrose 1,000 ml @ 100 mls/hr Q10H IV Last administered on 02/05/19 15:16; Admin Dose 100 MLS/HR; Start 02/03/19 at 11:00 Aztreonam 1 gm/ Dextrose 50 ml @ 100 mls/hr Q12 IVPB Last administered on 02/05/19 09:43; Admin Dose 100 MLS/HR; Start 02/03/19 at 21:00 Vancomycin HCl 750 mg/Dextrose 250 ml @ 125 mls/hr Q48H IVPB Last administered on 02/04/19 23:31; Admin Dose 125 MLS/HR; Start 02/04/19 at 23:00 Pantoprazole (Protonix Iv) 40 mg BID@06,18 IV ; Start 02/05/19 at 18:00 Metoprolol Tartrate (Lopressor) 12.5 mg BID PO ; Start 02/05/19 at 21:00 MICHELLE VERDIN MD February 05, 2019 17:11
[2019-02-05] MEDS: PANTOPRAZOLE 40 MG INJ IV SCH (17:23)
[2019-02-05] MEDS: ATORVASTATIN 40 MG TAB NGT SCH (21:50)
[2019-02-05] MEDS: METOPROLOL 25 MG TAB PO SCH (21:50)
[2019-02-05] MEDS: TERAZOSIN 5 MG CAP NGT SCH (21:51)
[2019-02-05] MEDS: LATANOPROST 0.005% 2.5 ML OPH BOTH EYES SCH (21:52)
[2019-02-05] MEDS: INSULIN GLARGINE [LANTus] (100 UNITS/ML) SYG SC SCH (21:52)
[2019-02-06] VITALS (12 sets, daily range): BP systolic 101–133; BP diastolic 48–65; PULSE 70–85; RESP 20–22
[2019-02-06] MEDS: NYSTATIN/TRIAMCINOLONE 15 GM OINT TOP SCH ×3 (00:08→21:35)
[2019-02-06] MEDS: ACCU-CHEK XX SCH ×6 (01:23→21:30)
[2019-02-06] MEDS: INSULIN ASPART [NOVOLOG] 3 ML PEN SC SCH ×6 (01:27→20:58)
[2019-02-06] MEDS: PHENYLephrine 2.5% 5 ML OPH BOTH EYES SCH ×2 (06:01→06:29)
[2019-02-06] MEDS: PANTOPRAZOLE 40 MG INJ IV SCH ×2 (06:03→18:59)
[2019-02-06] MEDS: metroNIDAZOLE 500 MG/NS (PMX) 100 ML IVPB SCH ×3 (06:03→22:37)
[2019-02-06] MEDS: DEXTROSE 5% 1,000 ML IV SCH ×3 (06:04→23:17)
[2019-02-06] MEDS: LEVOTHYROXINE 125 MCG TAB NGT SCH (06:04)
[2019-02-06] MEDS ORDERED: TROPICAMIDE 1% 3 ML OPH BOTH EYES SCH (06:05)
[2019-02-06] MEDS: TROPICAMIDE 1% 3 ML OPH BOTH EYES SCH ×2 (06:07→06:36)
[2019-02-06] MEDS: ALBUTEROL/IPRATROPIUM (NEB) 3 ML AMP HHN SCH ×3 (08:41→20:26)
[2019-02-06] MEDS: TOBRAMYCIN/0.25NS 300 MG/5 ML INHAL NEB SCH ×2 (08:42→20:26)
[2019-02-06] MEDS: CARBOXYMETHYLCELLULOSE 0.5% 0.4 ML OPH BOTH EYES SCH ×4 (09:26→20:48)
[2019-02-06] MEDS: MULTIVITAMINS 30 ML CUP GTB SCH (09:26)
[2019-02-06] MEDS: FERROUS SULFATE 60 MG/ML 5ML CUP GTB SCH ×3 (09:26→18:58)
[2019-02-06] MEDS: ZINC SULFATE 220 MG CAP PO SCH (09:27)
[2019-02-06] MEDS: ASCORBIC ACID 250 MG TAB PO SCH (09:27)
[2019-02-06] MEDS: FOLIC ACID 1 MG TAB PO SCH (09:27)
[2019-02-06] MEDS: METOPROLOL 25 MG TAB PO SCH ×2 (09:28→20:51)
[2019-02-06] MEDS: POTASSIUM CHLORIDE 20 MEQ POWDER FOR ORAL SOLN NGT SCH ×3 (09:28→20:50)
[2019-02-06] MEDS: NYSTATIN 30 GM POWDER BTL TOP SCH ×2 (09:44→21:35)
[2019-02-06] MEDS: MUPIROCIN 2% 22 GM OINT TOP SCH ×2 (09:45→21:36)
[2019-02-06] MEDS: AQUAPHOR 52.5 GM OINT TOP SCH (09:46)
[2019-02-06] MEDS: BALSAM PERU/CASTOR OIL 60 GM TUBE TOP SCH ×2 (09:47→21:35)
[2019-02-06] MEDS: LEVETIRACETAM 500 MG (PMX) 100 ML IVPB SCH ×2 (12:03→20:48)
--- NOTE | 2019-02-06 12:05 | CONS ---
Consult Date/Type/Reason Admit Date/Time Jan 17, 2019 at 15:58 Initial Consult Date 01/18/19 Type of Consult Pulmonary Requesting Provider: IVAN AKHTAR MD Date/Time of Note DATE: 02/06/19 TIME: 12:04 Subjective Patient appears comfortable no respiratory distress, nasogastric tube in place. Objective Vital Signs Date Temp Pulse Resp B/P (MAP) Pulse Ox O2 O2 Flow FiO2 Time Delivery Rate 02/06/19 98.4 75 22 133/56 99 Nasal 11:19 (81) Cannula 02/06/19 2.0 08:45 02/04/19 70 14:45 Intake and Output 02/05/19 02/05/19 02/06/19 1515:00 23:00 07:00 IntakeIntake Total 1746 ml 817 ml 1970 ml OutputOutput Total 340 ml 100 ml 700 ml BalanceBalance 1406 ml 717 ml 1270 ml Exam GENERAL: Frail elderly gentleman comfortable at rest on nasal cannula VITAL SIGNS: per chart NECK: Supple. No JVD or lymphadenopathy. CARDIAC EXAM: S1, S2. No added sounds or murmurs. CHEST: Diminished air entry both bases ABDOMEN: Soft, nontender. No guarding or rebound. EXTREMITIES: No cyanosis, clubbing edema +2 NEUROLOGIC: Generalized weakness. Vent Setting Ventilator Support Mode: AC Fraction of Inspired Oxygen pe: 70 Positive End Expiratory Pressu: 5.0 Results/Medications Result Diagram: 02/06/19 0640 02/06/19 0640 Results 24 hrs Laboratory Tests Test 02/05/19 12:42 02/05/19 17:14 02/05/19 18:00 02/05/19 21:51 Bedside Glucose 120 181 265 H Hemoglobin 7.7 L Hematocrit 24.8 L Sodium Level 151 H Stool Occult Blood POSITIVE Test 02/06/19 01:23 02/06/19 05:12 02/06/19 06:38 02/06/19 06:40 Bedside Glucose 267 H 223 H Phosphorus Level 2.9 Magnesium Level 2.1 White Blood Count 27.3 H Red Blood Count 2.53 L Hemoglobin 7.4 L Hematocrit 23.4 L Mean Corpuscular 92.5 Volume Mean Corpuscular 29.2 Hemoglobin Mean Corpuscular 31.6 L Hemoglobin Concent Red Cell 20.7 H Distribution Width Platelet Count 113 L Mean Platelet Volume 13.5 H Immature 1.100 H Granulocytes % Neutrophils % Segmented 87 H Neutrophils % (Manual) Band Neutrophils % 6 H (Manual) Lymphocytes % Lymphocytes % 5 L (Manual) Monocytes % Monocytes % (Manual) 2 Eosinophils % Basophils % Nucleated Red Blood 0.5 H Cells % Immature 0.290 H Granulocytes # Neutrophils # Neutrophils # 24.2 H (Manual) Band Neutrophils # 1.6 H Lymphocytes (Manual) 1.3 Lymphocytes # Monocytes # Monocytes # (Manual) 0.5 Eosinophils # Basophils # Nucleated Red Blood Cells # Platelet Estimate DECREASED Polychromasia 3+ Hypochromasia 1+ Poikilocytosis 3+ Anisocytosis 2+ Macrocytosis 2+ Target Cells 1+ Sodium Level 151 H Potassium Level 4.3 Chloride Level 118 H Carbon Dioxide Level 29 Anion Gap 4 L Blood Urea Nitrogen 60 H Creatinine 1.57 H Est Glomerular Filtrat Rate mL/min Glucose Level 143 # Calcium Level 7.0 L Total Bilirubin 0.4 Direct Bilirubin 0.00 Indirect Bilirubin 0.4 Aspartate Amino 21 Transf (AST/SGOT) Alanine 37 Aminotransferase (AL T/SGPT) Alkaline Phosphatase 105 Total Protein 4.2 L Albumin 1.8 L Globulin 2.40 Albumin/Globulin 0.75 Ratio Test 02/06/19 09:49 Bedside Glucose 183 Medications Current Medications Lactulose (Enulose) 20 gm DAILY PRN PO CONSTIPATION; Start 01/17/19 at 18:17 Acetaminophen (Tylenol Tab) 650 mg Q4H PRN PO PAIN Last administered on 01/23/19at 22:48; Admin Dose 650 MG; Start 01/17/19 at 18:17 Miscellaneous Information (Pending [facility] Order For Wound Care) This patient ramirez... PRN PRN XX WOUND CARE; Start 01/17/19 at 18:17 Albuterol/ Ipratropium (Duoneb) 3 ml Q2H RESP THERAPY PRN HHN SHORTNESS OF BREATH; Start 01/17/19 at 18:17 Bisacodyl (Dulcolax) 10 mg BID PRN PO CONSTIPATION; Start 01/17/19 at 18:17; Status Hold Folic Acid (Folic Acid) 1 mg DAILY PO Last administered on 02/06/19at 09:27; Admin Dose 1 MG; Start 01/17/19 at 18:17 Latanoprost (Xalatan) 1 drop HS BOTH EYES Last administered on 02/05/19at 21:52; Admin Dose 1 DROP; Start 01/17/19 at 18:17 Nitroglycerin (Nitroglycerin (Sl Tab) 0.4 Mg) 0.4 tab Q5M PRN SL CHEST PAIN; Start 01/17/19 at 18:17 Nystatin (Nystatin Powder) 1 applic BID TOP Last administered on 02/06/19at 09:44; Admin Dose 1 APPLIC; Start 01/17/19 at 18:17 IV Flush (NS 3 ml) 3 ml PER PROTOCOL IV ; Start 01/17/19 at 18:17 Miscellaneous Information 1 ea NOTE XX ; Start 01/17/19 at 18:17 Glucose (Glutose) 15 gm Q15M PRN PO DECREASED GLUCOSE; Start 01/17/19 at 18:17 Glucose (Glutose) 22.5 gm Q15M PRN PO DECREASED GLUCOSE; Start 01/17/19 at 18:17 Dextrose (D50w Syringe) 25 ml Q15M PRN IV DECREASED GLUCOSE Last administered on 02/05/19at 09:50; Admin Dose 25 ML; Start 01/17/19 at 18:17 Dextrose (D50w Syringe) 50 ml Q15M PRN IV DECREASED GLUCOSE; Start 01/17/19 at 18:17 Glucagon (Glucagen) 1 mg Q15M PRN IM DECREASED GLUCOSE; Start 01/17/19 at 18:17 Glucose (Glutose) 15 gm Q15M PRN BUCCAL DECREASED GLUCOSE; Start 01/17/19 at 18:17 Zinc Sulfate (Zinc Sulfate) 220 mg DAILY PO Last administered on 02/06/19 09:27; Admin Dose 220 MG; Start 01/17/19 at 18:17 Ascorbic Acid (Vitamin C) 250 mg DAILY PO Last administered on 02/06/19 09:27; Admin Dose 250 MG; Start 01/17/19 at 18:17 Multi-Ingredient Ointment (Aquaphor Oint 52.5 Gm) 1 applic BID TOP Last administered on 02/06/19at 09:46; Admin Dose 1 APPLIC; Start 01/17/19 at 18:17 Bisacodyl (Dulcolax Supp) 10 mg DAILY PRN [place] CONSTIPATION; Start 01/17/19 at 18:17 Zinc Acetate/ Diphenhydramine (Benadryl 2% Cr) 1 applic Q6H PRN TOP ITCHING Last administered on 01/26/19 07:54; Admin Dose 1 APPLIC; Start 01/19/19 at 16:37 IV Flush (NS 10 ml) 10 ml PRN PRN IV IV PROTOCOL; Start 01/20/19 at 14:30 Cyanocobalamin (Vitamin B12 Inj) 1,000 mcg Q7D IM Last administered on 02/03/19 08:14; Admin Dose 1,000 MCG; Start 02/03/19 at 09:00 Metoprolol Tartrate (Lopressor) 5 mg Q4H PRN IV HR>110 Hold SBP<100; Start 01/26/19 at 14:30 Vancomycin HCl (Vanco Iv Per Pharmacy) VANCOMYCIN PER PHARMACY PER PROTOCOL XX ; Start 01/27/19 at 12:00 Enoxaparin Sodium (Lovenox) 60 mg DAILY SC Last administered on 02/03/19 08:06; Admin Dose 60 MG; Start 01/28/19 at 09:00; Status Hold Lorazepam (Ativan) 1 mg Q2 PRN IV SEIZURES Last administered on 02/02/19 09:18; Admin Dose 1 MG; Start 01/27/19 at 14:00 Metronidazole 100 ml @ 100 mls/hr Q8 IVPB Last administered on 02/06/19 06:03; Admin Dose 100 MLS/HR; Start 01/27/19 at 15:00 Atorvastatin Calcium (Lipitor) 40 mg QHS NGT Last administered on 02/05/19 21:50; Admin Dose 40 MG; Start 01/28/19 at 21:00 Docusate Sodium (Colace Liquid Cup) 100 mg BID NGT ; Start 01/27/19 at 22:00; Status Hold Terazosin HCl (Hytrin) 10 mg HS NGT Last administered on 02/05/19 21:51; Admin Dose 10 MG; Start 01/28/19 at 21:00 Levetiracetam 100 ml @ 400 mls/hr Q12 IVPB Last administered on 02/05/19 21:52; Admin Dose 400 MLS/HR; Start 01/28/19 at 09:00 Levothyroxine Sodium (Synthroid) 125 mcg BEFORE BREAKFAST NGT Last administered on 02/06/19 06:04; Admin Dose 125 MCG; Start 01/28/19 at 07:00 Ferrous Sulfate (Feosol Liquid Cup) 300 mg WITH MEALS GTB Last administered on 02/06/19 09:26; Admin Dose 300 MG; Start 01/28/19 at 11:30 Multivitamins (Multivitamin) 30 ml DAILY GTB Last administered on 02/06/19 09:26; Admin Dose 30 ML; Start 01/28/19 at 11:00 Diagnostic Test (Pha) (Accu-Chek) 1 ea Q4 XX Last administered on 02/06/19 09:46; Admin Dose 1 EA; Start 01/28/19 at 13:00 Nystatin/ Triamcinolone Acetonide (Mycolog Oint) 1 applic BID TOP Last administered on 02/06/19 09:45; Admin Dose 1 APPLIC; Start 01/28/19 at 22:30 Insulin Aspart (Novolog Insulin Pen) NOVOLOG *MILD* ALGORI... Q4 SC Last administered on 02/06/19 10:22; Admin Dose 2 UNIT; Start 01/29/19 at 05:00 Albuterol/ Ipratropium (Duoneb) 3 ml Q6HWA RESP THERAPY HHN Last administered on 02/06/19 08:41; Admin Dose 3 ML; Start 01/29/19 at 14:00 Epoetin Dae-epbx (RETACRIT(non-esrd)) 40,000 unit Mo@1700 SC Last administered on 02/03/19 18:12; Admin Dose 40,000 UNIT; Start 02/03/19 at 17:00 Mupirocin (Bactroban) 1 applic BID TOP Last administered on 02/06/19 09:45; Admin Dose 1 APPLIC; Start 01/30/19 at 15:26; Stop 02/09/19 at 15:25 Tobramycin Sulfate/Sodium Chloride (Nilesh Inhal) 300 mg BID RESP THERAPY NEB Last administered on 02/06/19 08:42; Admin Dose 300 MG; Start 01/30/19 at 20:00 Insulin Glargine (Lantus) 10 units DAILY@2000 SC Last administered on 02/05/19 21:52; Admin Dose 10 UNITS; Start 01/31/19 at 20:00 Potassium Chloride (Potassium Chloride Pwd/Soln) 20 meq TID NGT Last administered on 02/06/19 09:28; Admin Dose 20 MEQ; Start 02/02/19 at 09:00 Aztreonam 1 gm/ Dextrose 50 ml @ 100 mls/hr Q12 IVPB Last administered on 02/05/19 21:52; Admin Dose 100 MLS/HR; Start 02/03/19 at 21:00 Vancomycin HCl 750 mg/Dextrose 250 ml @ 125 mls/hr Q48H IVPB Last administered on 02/04/19 23:31; Admin Dose 125 MLS/HR; Start 02/04/19 at 23:00 Pantoprazole (Protonix Iv) 40 mg BID@06,18 IV Last administered on 02/06/19 06:03; Admin Dose 40 MG; Start 02/05/19 at 18:00 Metoprolol Tartrate (Lopressor) 12.5 mg BID PO Last administered on 02/06/19 09:28; Admin Dose 12.5 MG; Start 02/05/19 at 21:00 Tropicamide (Mydriacyl 1%) 1 drop Q30MIN BOTH EYES Last administered on 02/06/19 06:36; Admin Dose 1 DROP; Start 02/06/19 at 06:05; Stop 02/07/19 at 06:06 Eye Lubricant (Refresh Plus) 1 drop QID BOTH EYES Last administered on 02/06/19 09:26; Admin Dose 1 DROP; Start 02/06/19 at 09:00 Eye Lubricant (Akwa Oint) 1 applic HS LEFT EYE ; Start 02/06/19 at 21:00 Assessment/Plan Hospital Course (Demo Recall) IMP: 1. s/p Acute hypoxemic respiratory failure likely secondary to combination of volume overload and pneumonia 2. Encephalopathy underlying dementia versus toxic metabolic, appears to be slowly improving possibly secondary to elevated sodium. 3. Valvular heart disease 4. Severe dysphagia 5. Status post septic shock likely secondary to above 6. Anemia, no active GI bleeding 7. Skin diffuse excoriating skin lesion unclear etiology not consistent with history of "red man" syndrome. or pemphigus. 8. Anemia RECS: 1. Monitor respiratory status closely. Strict aspiration precautions 2. Continue broad-spectrum antibiotics 3. Infectious work-up as per ID 4. Consider further unit of PRBCs 5. Palliative care consult appreciated 6. Replete K+ and Mg, continue free water 7. Aspiration precautions, may require PEG tube placement Consider DNR CODE STATUS Overall prognosis remains guarded DIANA MCRAE MD, [facility] February 06, 2019 12:05
--- NOTE | 2019-02-06 12:40 | CONS ---
Assessment/Plan Assessment/Plan Hospital Course (Demo Recall) IMPRESSION: 1. Atrial fibrillation, currently rate controlled.-off systemic anticoagulation due to anemia. ON asa only due to anemia 2. Possible congestive heart failure by chest x-ray, which will be diastolic, acute on chronic by most recent echo with an EF of 60%. 3. Tricuspid regurgitation, moderate by most recent echo. 4. Acute on chronic renal failure-mild worsening 5. Possible pneumonia. 6. History of coronary artery disease, status post coronary artery bypass graft surgery. 7. Dyslipidemia. 8. Rheumatoid arthritis. 9. Groin cellulitis. 10. Anemia-worsening again today requiring transfusions PRBC's.Now post-op s/p endoscopy 11. Diabetes mellitus. 12. Sepsis/leukocytosis 14. abdominal mass 15. Rash-all over body with skin chaffing at this time, probable drug reaction 16. Encephalopathy-ongoing. MRI negative for acute CVA Recc: -Now back on tele -serial ecg's -dose IVP digoxin to improve HR control -Lasix currently held per renal -Continue statin -Currently off abx's/antifungals, f/u cx data -Ongoing GI eval of abd mass -ongoing neuro eval -Lovenox held in the setting of GIB/worsening anemia, ? ability to resume low dose asa -Continue low dose BB Consultation Date/Type/Reason Admit Date/Time Jan 17, 2019 at 15:58 Initial Consult Date 01/18/19 Type of Consult Cardiology Reason for Consultation AF Requesting Provider: IVAN AKHTAR MD Date/Time of Note DATE: 02/06/19 TIME: 12:36 Exam/Review of Systems Vital Signs Vitals Vital Signs Date Temp Pulse Resp B/P (MAP) Pulse Ox O2 O2 Flow FiO2 Time Delivery Rate 02/06/19 79 12:25 02/06/19 98.4 22 133/56 99 Nasal 11:19 (81) Cannula 02/06/19 2.0 08:45 02/04/19 70 14:45 Intake and Output 02/05/19 02/05/19 02/06/19 1515:00 23:00 07:00 IntakeIntake Total 1746 ml 817 ml 1970 ml OutputOutput Total 340 ml 100 ml 700 ml BalanceBalance 1406 ml 717 ml 1270 ml Exam Exam Review of Systems: CONSTITUTIONAL: No fevers, chills. PULMONARY: No sob CARDIOVASCULAR: No chest pain/palpitations GASTROINTESTINAL: No nausea/vomiting. GENITOURINARY: No hematuria/dysuria. MUSCULOSKELETAL: No myagias/arthalgias. PSYCHIATRIC: The patient denies depression. NEUROLOGIC: No weakness Constitutional: alert Psych: no complaints Head: normocephalic ENMT: mucosa pink and moist Neck: supple, jvd (9 cm water) Respiratory: clear to auscultation Cardiovascular: regular rate and rhythm Gastrointestinal: soft, non-tender Musculoskeletal: muscle tone (normal) Extremities: edema (none) Labs Result Diagram: 02/06/19 0640 02/06/19 0640 Results 24hrs Laboratory Tests Test 02/05/19 12:42 02/05/19 17:14 02/05/19 18:00 02/05/19 21:51 Bedside Glucose 120 181 265 H Hemoglobin 7.7 L Hematocrit 24.8 L Sodium Level 151 H Stool Occult Blood POSITIVE Test 02/06/19 01:23 02/06/19 05:12 02/06/19 06:38 02/06/19 06:40 Bedside Glucose 267 H 223 H Phosphorus Level 2.9 Magnesium Level 2.1 White Blood Count 27.3 H Red Blood Count 2.53 L Hemoglobin 7.4 L Hematocrit 23.4 L Mean Corpuscular 92.5 Volume Mean Corpuscular 29.2 Hemoglobin Mean Corpuscular 31.6 L Hemoglobin Concent Red Cell 20.7 H Distribution Width Platelet Count 113 L Mean Platelet Volume 13.5 H Immature 1.100 H Granulocytes % Neutrophils % Segmented 87 H Neutrophils % (Manual) Band Neutrophils % 6 H (Manual) Lymphocytes % Lymphocytes % 5 L (Manual) Monocytes % Monocytes % (Manual) 2 Eosinophils % Basophils % Nucleated Red Blood 0.5 H Cells % Immature 0.290 H Granulocytes # Neutrophils # Neutrophils # 24.2 H (Manual) Band Neutrophils # 1.6 H Lymphocytes (Manual) 1.3 Lymphocytes # Monocytes # Monocytes # (Manual) 0.5 Eosinophils # Basophils # Nucleated Red Blood Cells # Platelet Estimate DECREASED Polychromasia 3+ Hypochromasia 1+ Poikilocytosis 3+ Anisocytosis 2+ Macrocytosis 2+ Target Cells 1+ Sodium Level 151 H Potassium Level 4.3 Chloride Level 118 H Carbon Dioxide Level 29 Anion Gap 4 L Blood Urea Nitrogen 60 H Creatinine 1.57 H Est Glomerular Filtrat Rate mL/min Glucose Level 143 # Calcium Level 7.0 L Total Bilirubin 0.4 Direct Bilirubin 0.00 Indirect Bilirubin 0.4 Aspartate Amino 21 Transf (AST/SGOT) Alanine 37 Aminotransferase (AL T/SGPT) Alkaline Phosphatase 105 Total Protein 4.2 L Albumin 1.8 L Globulin 2.40 Albumin/Globulin 0.75 Ratio Test 02/06/19 09:49 02/06/19 12:33 Bedside Glucose 183 180 Medications Medications Current Medications Lactulose (Enulose) 20 gm DAILY PRN PO CONSTIPATION; Start 01/17/19 at 18:17 Acetaminophen (Tylenol Tab) 650 mg Q4H PRN PO PAIN Last administered on 01/23/19at 22:48; Admin Dose 650 MG; Start 01/17/19 at 18:17 Miscellaneous Information (Pending [facility] Order For Wound Care) This patient ramirez ... PRN PRN XX WOUND CARE; Start 01/17/19 at 18:17 Albuterol/ Ipratropium (Duoneb) 3 ml Q2H RESP THERAPY PRN HHN SHORTNESS OF BREATH; Start 01/17/19 at 18:17 Bisacodyl (Dulcolax) 10 mg BID PRN PO CONSTIPATION; Start 01/17/19 at 18:17; Status Hold Folic Acid (Folic Acid) 1 mg DAILY PO Last administered on 02/06/19at 09:27; Admin Dose 1 MG; Start 01/17/19 at 18:17 Latanoprost (Xalatan) 1 drop HS BOTH EYES Last administered on 02/05/19at 21:52; Admin Dose 1 DROP; Start 01/17/19 at 18:17 Nitroglycerin (Nitroglycerin (Sl Tab) 0.4 Mg) 0.4 tab Q5M PRN SL CHEST PAIN; Start 01/17/19 at 18:17 Nystatin (Nystatin Powder) 1 applic BID TOP Last administered on 02/06/19at 09:44; Admin Dose 1 APPLIC; Start 01/17/19 at 18:17 IV Flush (NS 3 ml) 3 ml PER PROTOCOL IV ; Start 01/17/19 at 18:17 Miscellaneous Information 1 ea NOTE XX ; Start 01/17/19 at 18:17 Glucose (Glutose) 15 gm Q15M PRN PO DECREASED GLUCOSE; Start 01/17/19 at 18:17 Glucose (Glutose) 22.5 gm Q15M PRN PO DECREASED GLUCOSE; Start 01/17/19 at 18:17 Dextrose (D50w Syringe) 25 ml Q15M PRN IV DECREASED GLUCOSE Last administered on 02/05/19at 09:50; Admin Dose 25 ML; Start 01/17/19 at 18:17 Dextrose (D50w Syringe) 50 ml Q15M PRN IV DECREASED GLUCOSE; Start 01/17/19 at 18:17 Glucagon (Glucagen) 1 mg Q15M PRN IM DECREASED GLUCOSE; Start 01/17/19 at 18:17 Glucose (Glutose) 15 gm Q15M PRN BUCCAL DECREASED GLUCOSE; Start 01/17/19 at 18:17 Zinc Sulfate (Zinc Sulfate) 220 mg DAILY PO Last administered on 02/06/19at 09:27; Admin Dose 220 MG; Start 01/17/19 at 18:17 Ascorbic Acid (Vitamin C) 250 mg DAILY PO Last administered on 02/06/19at 09:27; Admin Dose 250 MG; Start 01/17/19 at 18:17 Multi-Ingredient Ointment (Aquaphor Oint 52.5 Gm) 1 applic BID TOP Last administered on 02/06/19at 09:46; Admin Dose 1 APPLIC; Start 01/17/19 at 18:17 Bisacodyl (Dulcolax Supp) 10 mg DAILY PRN [place] CONSTIPATION; Start 01/17/19 at 18:17 Zinc Acetate/ Diphenhydramine (Benadryl 2% Cr) 1 applic Q6H PRN TOP ITCHING Last administered on 01/26/19at 07:54; Admin Dose 1 APPLIC; Start 01/19/19 at 16:37 IV Flush (NS 10 ml) 10 ml PRN PRN IV IV PROTOCOL; Start 01/20/19 at 14:30 Cyanocobalamin (Vitamin B12 Inj) 1,000 mcg Q7D IM Last administered on at 08:14; Admin Dose 1,000 MCG; Start 02/03/19 at 09:00 Metoprolol Tartrate (Lopressor) 5 mg Q4H PRN IV HR>110 Hold SBP<100; Start 01/26/19 at 14:30 Vancomycin HCl (Vanco Iv Per Pharmacy) VANCOMYCIN PER PHARMACY PER PROTOCOL XX ; Start 01/27/19 at 12:00 Enoxaparin Sodium (Lovenox) 60 mg DAILY SC Last administered on 02/03/19 08:06; Admin Dose 60 MG; Start 01/28/19 at 09:00; Status Hold Lorazepam (Ativan) 1 mg Q2 PRN IV SEIZURES Last administered on 02/02/19 09:18; Admin Dose 1 MG; Start 01/27/19 at 14:00 Metronidazole 100 ml @ 100 mls/hr Q8 IVPB Last administered on 02/06/19 06:03; Admin Dose 100 MLS/HR; Start 01/27/19 at 15:00 Atorvastatin Calcium (Lipitor) 40 mg QHS NGT Last administered on 02/05/19 21:50; Admin Dose 40 MG; Start 01/28/19 at 21:00 Docusate Sodium (Colace Liquid Cup) 100 mg BID NGT ; Start 01/27/19 at 22:00; Status Hold Terazosin HCl (Hytrin) 10 mg HS NGT Last administered on 02/05/19 21:51; Admin Dose 10 MG; Start 01/28/19 at 21:00 Levetiracetam 100 ml @ 400 mls/hr Q12 IVPB Last administered on 02/06/19 12:03; Admin Dose 400 MLS/HR; Start 01/28/19 at 09:00 Levothyroxine Sodium (Synthroid) 125 mcg BEFORE BREAKFAST NGT Last administered on 02/06/19 06:04; Admin Dose 125 MCG; Start 01/28/19 at 07:00 Ferrous Sulfate (Feosol Liquid Cup) 300 mg WITH MEALS GTB Last administered on 02/06/19 12:02; Admin Dose 300 MG; Start 01/28/19 at 11:30 Multivitamins (Multivitamin) 30 ml DAILY GTB Last administered on 02/06/19 09:26; Admin Dose 30 ML; Start 01/28/19 at 11:00 Diagnostic Test (Pha) (Accu-Chek) 1 ea Q4 XX Last administered on 02/06/19 09:46; Admin Dose 1 EA; Start 01/28/19 at 13:00 Nystatin/ Triamcinolone Acetonide (Mycolog Oint) 1 applic BID TOP Last administered on 02/06/19 09:45; Admin Dose 1 APPLIC; Start 01/28/19 at 22:30 Insulin Aspart (Novolog Insulin Pen) NOVOLOG *MILD* ALGORI... Q4 SC Last administered on 02/06/19 10:22; Admin Dose 2 UNIT; Start 01/29/19 at 05:00 Albuterol/ Ipratropium (Duoneb) 3 ml Q6HWA RESP THERAPY HHN Last administered on 02/06/19 08:41; Admin Dose 3 ML; Start 01/29/19 at 14:00 Epoetin Dae-epbx (RETACRIT(non-esrd)) 40,000 unit Mo@1700 SC Last administered on 02/03/19 18:12; Admin Dose 40,000 UNIT; Start 02/03/19 at 17:00 Mupirocin (Bactroban) 1 applic BID TOP Last administered on 02/06/19 09:45; Admin Dose 1 APPLIC; Start 01/30/19 at 15:26; Stop 02/09/19 at 15:25 Tobramycin Sulfate/Sodium Chloride (Nilesh Inhal) 300 mg BID RESP THERAPY NEB Last administered on 02/06/19 08:42; Admin Dose 300 MG; Start 01/30/19 at 20:00 Insulin Glargine (Lantus) 10 units DAILY@2000 SC Last administered on 02/05/19 21:52; Admin Dose 10 UNITS; Start 01/31/19 at 20:00 Potassium Chloride (Potassium Chloride Pwd/Soln) 20 meq TID NGT Last administered on 02/06/19 09:28; Admin Dose 20 MEQ; Start 02/02/19 at 09:00 Aztreonam 1 gm/ Dextrose 50 ml @ 100 mls/hr Q12 IVPB Last administered on 02/05/19 21:52; Admin Dose 100 MLS/HR; Start 02/03/19 at 21:00 Vancomycin HCl 750 mg/Dextrose 250 ml @ 125 mls/hr Q48H IVPB Last administered on 02/04/19 23:31; Admin Dose 125 MLS/HR; Start 02/04/19 at 23:00 Pantoprazole (Protonix Iv) 40 mg BID@06,18 IV Last administered on 02/06/19 06:03; Admin Dose 40 MG; Start 02/05/19 at 18:00 Metoprolol Tartrate (Lopressor) 12.5 mg BID PO Last administered on 02/06/19at 09:28; Admin Dose 12.5 MG; Start 02/05/19 at 21:00 Tropicamide (Mydriacyl 1%) 1 drop Q30MIN BOTH EYES Last administered on 02/06/19at 06:36; Admin Dose 1 DROP; Start 02/06/19 at 06:05; Stop 02/07/19 at 06:06 Eye Lubricant (Refresh Plus) 1 drop QID BOTH EYES Last administered on 02/06/19at 09:26; Admin Dose 1 DROP; Start 02/06/19 at 09:00 Eye Lubricant (Akwa Oint) 1 applic HS LEFT EYE ; Start 02/06/19 at 21:00 MARJORIE JAIN February 06, 2019 12:39
[2019-02-06] MEDS: AZTREONAM 1 GM in DEXTROSE 5% 50 ML IVPB SCH ×2 (13:11→21:35)
--- NOTE | 2019-02-06 13:13 | PN ---
Date/Time of Note Date/Time of Note DATE: 02/06/19 TIME: 13:13 Assessment/Plan VTE Prophylaxis Risk score (from [facility])>0 risk: 11 SCD applied (from [facility]): No SCD contraindicated: low risk/ambulating Pharmacological prophylaxis: NA/contraindicated Pharm contraindication: low risk/ambulating Lines/Catheters IV [facility] (from [facility] Central Line Central line still needed: Yes Urinary Cath still in place: Yes Reason Cath still needed: urinary retention Assessment/Plan Hospital Course Hospital Course # AMS likely due to stroke vs seizure, 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 Septic shock now on pressors likely secondary to pneumonia on levophed resolved # Hypothermia ? sepsis #. 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 Chronic renal failure likely secondary to sepsis, improved, normal creatinine #. Hypertension.currently hypotensive resolved # Impending respiratory failure # Anasarca # Hyperlipidemia. # Hypothyroidism. # Bilateral groin cellulitis more likely associated with mateus, patches in groin and axilla bilaterally. skin peeling # History of rheumatoid arthritis with joint deformities. # Diabetes type 2. # Hx of CABGx2, carotid stent #. Peripheral vascular disease. #. Chronic a.fib, now on lovenox #. right arm edema # Neoplasm per CT abdomen. 4.3 cm cystic lesion along the pancreas body, enlarged since 10/10/2012 (previously 2.4 cm). 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 # Possible allergic skin reaction ? drug present since admission> improved s/p biopsy/ Amrik Betancourt > limit results solar keratosis # hypoThermia #Hypernatremia vasiliy due to dehydration improving # metabolic alkalosis Plan - GI consult> hold lovenox due to possible bleeding, iv ppi - dec d5 w to 50 improved today to 151 - cw FWF 100 q4 and change fluids to d5w incrrease rate - hold lasix due to metabolic alkalosis - - cw novasource 60 cc/hr, fu speech recs - cw aztreonam/vanco/flagyl/tobra -c w keppra - cw lovenox 60 for afib> held today due to anemia ? ASA - fu Neuro recs and neuro checks ? LP was refused by family - GI and DVT prophylaxsis -oncology consul dr Lorenzo aware:he said Ca 19-9 is negative indicating unlikely malignant. This may be a pseudocyst or a precancerous pancreatic lesion. It has been growing in size but patient is asymptomatic. EUS with biopsy is re commended and can either be done inpatient or outpatient setting. The patient at this time is unlikely a candidate for a Whipple surgery however. -skin care - s/p skin biopsy pending results solar elastosis > will kemar derm input - opthlamology, Dr Montiel saw pt today - wbc trending down Result Diagram: 02/06/19 0640 02/06/19 0640 Results 24hrs Laboratory Tests Test 02/05/19 17:14 02/05/19 18:00 02/05/19 21:51 02/06/19 01:23 Hemoglobin 7.7 L Hematocrit 24.8 L Sodium Level 151 H Bedside Glucose 181 265 H 267 H Stool Occult Blood POSITIVE Test 02/06/19 05:12 02/06/19 06:38 02/06/19 06:40 02/06/19 09:49 Bedside Glucose 223 H 183 Phosphorus Level 2.9 Magnesium Level 2.1 White Blood Count 27.3 H Red Blood Count 2.53 L Hemoglobin 7.4 L Hematocrit 23.4 L Mean Corpuscular 92.5 Volume Mean Corpuscular 29.2 Hemoglobin Mean Corpuscular 31.6 L Hemoglobin Concent Red Cell 20.7 H Distribution Width Platelet Count 113 L Mean Platelet Volume 13.5 H Immature 1.100 H Granulocytes % Neutrophils % Segmented 87 H Neutrophils % (Manual) Band Neutrophils % 6 H (Manual) Lymphocytes % Lymphocytes % 5 L (Manual) Monocytes % Monocytes % (Manual) 2 Eosinophils % Basophils % Nucleated Red Blood 0.5 H Cells % Immature 0.290 H Granulocytes # Neutrophils # Neutrophils # 24.2 H (Manual) Band Neutrophils # 1.6 H Lymphocytes (Manual) 1.3 Lymphocytes # Monocytes # Monocytes # (Manual) 0.5 Eosinophils # Basophils # Nucleated Red Blood Cells # Platelet Estimate DECREASED Polychromasia 3+ Hypochromasia 1+ Poikilocytosis 3+ Anisocytosis 2+ Macrocytosis 2+ Target Cells 1+ Sodium Level 151 H Potassium Level 4.3 Chloride Level 118 H Carbon Dioxide Level 29 Anion Gap 4 L Blood Urea Nitrogen 60 H Creatinine 1.57 H Est Glomerular Filtrat Rate mL/min Glucose Level 143 # Calcium Level 7.0 L Total Bilirubin 0.4 Direct Bilirubin 0.00 Indirect Bilirubin 0.4 Aspartate Amino 21 Transf (AST/SGOT) Alanine 37 Aminotransferase (AL T/SGPT) Alkaline Phosphatase 105 Total Protein 4.2 L Albumin 1.8 L Globulin 2.40 Albumin/Globulin 0.75 Ratio Test 02/06/19 12:33 Bedside Glucose 180 Subjective 24 Hr Interval Summary Free Text/Dictation he is following much more commands today na improved NG tube Exam/Review of Systems Exam Vitals Vital Signs Date Temp Pulse Resp B/P (MAP) Pulse Ox O2 O2 Flow FiO2 Time Delivery Rate 02/06/19 79 12:25 02/06/19 98.4 22 133/56 99 Nasal 11:19 (81) Cannula 02/06/19 2.0 08:45 02/04/19 70 14:45 Intake and Output 02/05/19 02/05/19 02/06/19 1515:00 23:00 07:00 IntakeIntake Total 1746 ml 817 ml 1970 ml OutputOutput Total 340 ml 100 ml 700 ml BalanceBalance 1406 ml 717 ml 1270 ml Exam nG tube Constitutional: frail. answers his name his daughter's name and the month, follows directions Respiratory: diminished breath sounds Cardiovascular: regular rate and rhythm, other (afib) Gastrointestinal: soft Neurological: awake Anasarca improved Skin: diffuse dequamative tissue improving Results Results 24hrs Laboratory Tests Test 02/05/19 17:14 02/05/19 18:00 02/05/19 21:51 02/06/19 01:23 Hemoglobin 7.7 L Hematocrit 24.8 L Sodium Level 151 H Bedside Glucose 181 265 H 267 H Stool Occult Blood POSITIVE Test 02/06/19 05:12 02/06/19 06:38 02/06/19 06:40 02/06/19 09:49 Bedside Glucose 223 H 183 Phosphorus Level 2.9 Magnesium Level 2.1 White Blood Count 27.3 H Red Blood Count 2.53 L Hemoglobin 7.4 L Hematocrit 23.4 L Mean Corpuscular 92.5 Volume Mean Corpuscular 29.2 Hemoglobin Mean Corpuscular 31.6 L Hemoglobin Concent Red Cell 20.7 H Distribution Width Platelet Count 113 L Mean Platelet Volume 13.5 H Immature 1.100 H Granulocytes % Neutrophils % Segmented 87 H Neutrophils % (Manual) Band Neutrophils % 6 H (Manual) Lymphocytes % Lymphocytes % 5 L (Manual) Monocytes % Monocytes % (Manual) 2 Eosinophils % Basophils % Nucleated Red Blood 0.5 H Cells % Immature 0.290 H Granulocytes # Neutrophils # Neutrophils # 24.2 H (Manual) Band Neutrophils # 1.6 H Lymphocytes (Manual) 1.3 Lymphocytes # Monocytes # Monocytes # (Manual) 0.5 Eosinophils # Basophils # Nucleated Red Blood Cells # Platelet Estimate DECREASED Polychromasia 3+ Hypochromasia 1+ Poikilocytosis 3+ Anisocytosis 2+ Macrocytosis 2+ Target Cells 1+ Sodium Level 151 H Potassium Level 4.3 Chloride Level 118 H Carbon Dioxide Level 29 Anion Gap 4 L Blood Urea Nitrogen 60 H Creatinine 1.57 H Est Glomerular Filtrat Rate mL/min Glucose Level 143 # Calcium Level 7.0 L Total Bilirubin 0.4 Direct Bilirubin 0.00 Indirect Bilirubin 0.4 Aspartate Amino 21 Transf (AST/SGOT) Alanine 37 Aminotransferase (AL T/SGPT) Alkaline Phosphatase 105 Total Protein 4.2 L Albumin 1.8 L Globulin 2.40 Albumin/Globulin 0.75 Ratio Test 02/06/19 12:33 Bedside Glucose 180 Medications Medication Current Medications Lactulose (Enulose) 20 gm DAILY PRN PO CONSTIPATION; Start 01/17/19 at 18:17 Acetaminophen (Tylenol Tab) 650 mg Q4H PRN PO PAIN Last administered on 01/23/19at 22:48; Admin Dose 650 MG; Start 01/17/19 at 18:17 [facility]isc[facility] Information [facility] This patient ramirez... PRN PRN XX WOUND CARE; Start 01/17/19 at 18:17 Albuterol/ Ipratropium (Duoneb) 3 ml Q2H RESP THERAPY PRN HHN SHORTNESS OF BREATH; Start 01/17/19 at 18:17 Bisacodyl (Dulcolax) 10 mg BID PRN PO CONSTIPATION; Start 01/17/19 at 18:17; Status Hold Folic Acid (Folic Acid) 1 mg DAILY PO Last administered on 02/06/19at 09:27; Admin Dose 1 MG; Start 01/17/19 at 18:17 Latanoprost (Xalatan) 1 drop HS BOTH EYES Last administered on 02/05/19at 21:52; Admin Dose 1 DROP; Start 01/17/19 at 18:17 Nitroglycerin (Nitroglycerin (Sl Tab) 0.4 Mg) 0.4 tab Q5M PRN SL CHEST PAIN; Start 01/17/19 at 18:17 Nystatin (Nystatin Powder) 1 applic BID TOP Last administered on 02/06/19at 09:44; Admin Dose 1 APPLIC; Start 01/17/19 at 18:17 IV Flush (NS 3 ml) 3 ml PER PROTOCOL IV ; Start 01/17/19 at 18:17 Miscellaneous Information 1 ea NOTE XX ; Start 01/17/19 at 18:17 Glucose (Glutose) 15 gm Q15M PRN PO DECREASED GLUCOSE; Start 01/17/19 at 18:17 Glucose (Glutose) 22.5 gm Q15M PRN PO DECREASED GLUCOSE; Start 01/17/19 at 18:17 Dextrose (D50w Syringe) 25 ml Q15M PRN IV DECREASED GLUCOSE Last administered on 02/05/19at 09:50; Admin Dose 25 ML; Start 01/17/19 at 18:17 Dextrose (D50w Syringe) 50 ml Q15M PRN IV DECREASED GLUCOSE; Start 01/17/19 at 18:17 Glucagon (Glucagen) 1 mg Q15M PRN IM DECREASED GLUCOSE; Start 01/17/19 at 18:17 Glucose (Glutose) 15 gm Q15M PRN BUCCAL DECREASED GLUCOSE; Start 01/17/19 at 18:17 Zinc Sulfate (Zinc Sulfate) 220 mg DAILY PO Last administered on 02/06/19 09:27; Admin Dose 220 MG; Start 01/17/19 at 18:17 Ascorbic Acid (Vitamin C) 250 mg DAILY PO Last administered on 02/06/19 09:27; Admin Dose 250 MG; Start 01/17/19 at 18:17 Multi-Ingredient Ointment (Aquaphor Oint 52.5 Gm) 1 applic BID TOP Last administered on 02/06/19at 09:46; Admin Dose 1 APPLIC; Start 01/17/19 at 18:17 Bisacodyl (Dulcolax Supp) 10 mg DAILY PRN [place] CONSTIPATION; Start 01/17/19 at 18:17 Zinc Acetate/ Diphenhydramine (Benadryl 2% Cr) 1 applic Q6H PRN TOP ITCHING Last administered on 01/26/19at 07:54; Admin Dose 1 APPLIC; Start 01/19/19 at 16:37 IV Flush (NS 10 ml) 10 ml PRN PRN IV IV PROTOCOL; Start 01/20/19 at 14:30 Cyanocobalamin (Vitamin B12 Inj) 1,000 mcg Q7D IM Last administered on 02/03/19 at 08:14; Admin Dose 1,000 MCG; Start 02/03/19 at 09:00 Metoprolol Tartrate (Lopressor) 5 mg Q4H PRN IV HR>110 Hold SBP<100; Start 01/26/19 at 14:30 Vancomycin HCl (Vanco Iv Per Pharmacy) VANCOMYCIN PER PHARMACY PER PROTOCOL XX ; Start 01/27/19 at 12:00 Enoxaparin Sodium (Lovenox) 60 mg DAILY SC Last administered on 02/03/19 08:06; Admin Dose 60 MG; Start 01/28/19 at 09:00; Status Hold Lorazepam (Ativan) 1 mg Q2 PRN IV SEIZURES Last administered on 02/02/19 09:18; Admin Dose 1 MG; Start 01/27/19 at 14:00 Metronidazole 100 ml @ 100 mls/hr Q8 IVPB Last administered on 02/06/19 06:03; Admin Dose 100 MLS/HR; Start 01/27/19 at 15:00 Atorvastatin Calcium (Lipitor) 40 mg QHS NGT Last administered on 02/05/19 21:50; Admin Dose 40 MG; Start 01/28/19 at 21:00 Docusate Sodium (Colace Liquid Cup) 100 mg BID NGT ; Start 01/27/19 at 22:00; Status Hold Terazosin HCl (Hytrin) 10 mg HS NGT Last administered on 02/05/19 21:51; Admin Dose 10 MG; Start 01/28/19 at 21:00 Levetiracetam 100 ml @ 400 mls/hr Q12 IVPB Last administered on 02/06/19 12:03; Admin Dose 400 MLS/HR; Start 01/28/19 at 09:00 Levothyroxine Sodium (Synthroid) 125 mcg BEFORE BREAKFAST NGT Last administered on 02/06/19 06:04; Admin Dose 125 MCG; Start 01/28/19 at 07:00 Ferrous Sulfate (Feosol Liquid Cup) 300 mg WITH MEALS GTB Last administered on 02/06/19 12:02; Admin Dose 300 MG; Start 01/28/19 at 11:30 Multivitamins (Multivitamin) 30 ml DAILY GTB Last administered on 02/06/19 09:26; Admin Dose 30 ML; Start 01/28/19 at 11:00 Diagnostic Test (Pha) (Accu-Chek) 1 ea Q4 XX Last administered on 02/06/19 09:46; Admin Dose 1 EA; Start 01/28/19 at 13:00 Nystatin/ Triamcinolone Acetonide (Mycolog Oint) 1 applic BID TOP Last administered on 02/06/19 09:45; Admin Dose 1 APPLIC; Start 01/28/19 at 22:30 Insulin Aspart (Novolog Insulin Pen) NOVOLOG *MILD* ALGORI... Q4 SC Last administered on 02/06/19 10:22; Admin Dose 2 UNIT; Start 01/29/19 at 05:00 Albuterol/ Ipratropium (Duoneb) 3 ml Q6HWA RESP THERAPY HHN Last administered on 02/06/19 08:41; Admin Dose 3 ML; Start 01/29/19 at 14:00 Epoetin Dae-epbx (RETACRIT(non-esrd)) 40,000 unit Mo@1700 SC Last administered on 02/03/19 18:12; Admin Dose 40,000 UNIT; Start 02/03/19 at 17:00 Mupirocin (Bactroban) 1 applic BID TOP Last administered on 02/06/19 09:45; A dmin Dose 1 APPLIC; Start 01/30/19 at 15:26; Stop 02/09/19 at 15:25 Tobramycin Sulfate/Sodium Chloride (Nilesh Inhal) 300 mg BID RESP THERAPY NEB Last administered on 02/06/19 08:42; Admin Dose 300 MG; Start 01/30/19 at 20:00 Insulin Glargine (Lantus) 10 units DAILY@2000 SC Last administered on 02/05/19 21:52; Admin Dose 10 UNITS; Start 01/31/19 at 20:00 Potassium Chloride (Potassium Chloride Pwd/Soln) 20 meq TID NGT Last administered on 02/06/19 09:28; Admin Dose 20 MEQ; Start 02/02/19 at 09:00 Aztreonam 1 gm/ Dextrose 50 ml @ 100 mls/hr Q12 IVPB Last administered on 02/06/19 13:11; Admin Dose 100 MLS/HR; Start 02/03/19 at 21:00 Vancomycin HCl 750 mg/Dextrose 250 ml @ 125 mls/hr Q48H IVPB Last administered on 02/04/19 23:31; Admin Dose 125 MLS/HR; Start 02/04/19 at 23:00 Pantoprazole (Protonix Iv) 40 mg BID@06,18 IV Last administered on 02/06/19 06:03; Admin Dose 40 MG; Start 02/05/19 at 18:00 Metoprolol Tartrate (Lopressor) 12.5 mg BID PO Last administered on 02/06/19 09:28; Admin Dose 12.5 MG; Start 02/05/19 at 21:00 Tropicamide (Mydriacyl 1%) 1 drop Q30MIN BOTH EYES Last administered on 02/06/19at 06:36; Admin Dose 1 DROP; Start 02/06/19 at 06:05; Stop 02/07/19 at 06:06 Eye Lubricant (Refresh Plus) 1 drop QID BOTH EYES Last administered on 02/06/19 09:26; Admin Dose 1 DROP; Start 02/06/19 at 09:00 Eye Lubricant (Akwa Oint) 1 applic HS LEFT EYE ; Start 02/06/19 at 21:00 IVAN AKHTAR MD February 06, 2019 13:13
--- NOTE | 2019-02-06 13:32 | CONS ---
Assessment/Plan Assessment/Plan Hospital Course (Demo Recall) Transferred to telemetry lethargic, looks comfortable afebrile WBC today 27.3 neutrophils 87 bands 6 BUN 60 creatinine 1.57 Skin biopsy revealed no evidence of vasculitis no evidence of malignancy. Please see full report in chart Wound culture grew Corynebacterium species. Sputum culture grew E. coli Antimicrobials: Vancomycin, aztreonam, Flagyl, tobramycin inhalation Indwelling: Left subclavian triple-lumen catheter, Wade catheter, NG tube Allergy: Penicillin, sulfa Physical examination: Obese well-developed chronically ill-appearing - [place] man who is lethargic, in no distress. Head atraumatic normocephalic sclera nonicteric. Neck is supple chest rise symmetrical breath sounds diminished bases. Heart: S1-S2. Abdomen obese soft bowel sounds present extremities without cyanosis, bilateral edema Assessment: 1. Severe sepsis s/p shock 2. Acute encephalopathy 3. Seizures 4. Healthcare acquired, possible aspiration pneumonia 5. Coronary artery disease/history of CABG 6. Advanced rheumatoid arthritis 5. Chronic atrial fibrillation 6. Diabetes 7. BPH 9. Acute on chronic anemia===> s/p EGD/colonoscopy 01/09/19 10. Status post right epididymitis 11. Pancreatic lesion per CT, unlikely neoplasm per oncology notes 12. 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, s/p punch bx Plan: Clinically unchanged, continue present care, antibiotics, aspiration precautions, follow skin biopsy results== sent to [facility] for final identification Consultation Date/Type/Reason Admit Date/Time Jan 17, 2019 at 15:58 Initial Consult Date 01/18/19 Type of Consult id Requesting Provider: IVAN AKHTAR MD Date/Time of Note DATE: 02/06/19 TIME: 13:31 Exam/Review of Systems Exam Vitals Vital Signs Date Temp Pulse Resp B/P (MAP) Pulse Ox O2 O2 Flow FiO2 Time Delivery Rate 02/06/19 79 12:25 02/06/19 98.4 22 133/56 99 Nasal 11:19 (81) Cannula 02/06/19 2.0 08:45 02/04/19 70 14:45 Intake and Output 02/05/19 02/05/19 02/06/19 1515:00 23:00 07:00 IntakeIntake Total 1746 ml 817 ml 1970 ml OutputOutput Total 340 ml 100 ml 700 ml BalanceBalance 1406 ml 717 ml 1270 ml Results Result Diagram: 02/06/19 0640 02/06/19 0640 Results 24hrs Laboratory Tests Test 02/05/19 17:14 02/05/19 18:00 02/05/19 21:51 02/06/19 01:23 Hemoglobin 7.7 L Hematocrit 24.8 L Sodium Level 151 H Bedside Glucose 181 265 H 267 H Stool Occult Blood POSITIVE Test 02/06/19 05:12 02/06/19 06:38 02/06/19 06:40 02/06/19 09:49 Bedside Glucose 223 H 183 Phosphorus Level 2.9 Magnesium Level 2.1 White Blood Count 27.3 H Red Blood Count 2.53 L Hemoglobin 7.4 L Hematocrit 23.4 L Mean Corpuscular 92.5 Volume Mean Corpuscular 29.2 Hemoglobin Mean Corpuscular 31.6 L Hemoglobin Concent Red Cell 20.7 H Distribution Width Platelet Count 113 L Mean Platelet Volume 13.5 H Immature 1.100 H Granulocytes % Neutrophils % Segmented 87 H Neutrophils % (Manual) Band Neutrophils % 6 H (Manual) Lymphocytes % Lymphocytes % 5 L (Manual) Monocytes % Monocytes % (Manual) 2 Eosinophils % Basophils % Nucleated Red Blood 0.5 H Cells % Immature 0.290 H Granulocytes # Neutrophils # Neutrophils # 24.2 H (Manual) Band Neutrophils # 1.6 H Lymphocytes (Manual) 1.3 Lymphocytes # Monocytes # Monocytes # (Manual) 0.5 Eosinophils # Basophils # Nucleated Red Blood Cells # Platelet Estimate DECREASED Polychromasia 3+ Hypochromasia 1+ Poikilocytosis 3+ Anisocytosis 2+ Macrocytosis 2+ Target Cells 1+ Sodium Level 151 H Potassium Level 4.3 Chloride Level 118 H Carbon Dioxide Level 29 Anion Gap 4 L Blood Urea Nitrogen 60 H Creatinine 1.57 H Est Glomerular Filtrat Rate mL/min Glucose Level 143 # Calcium Level 7.0 L Total Bilirubin 0.4 Direct Bilirubin 0.00 Indirect Bilirubin 0.4 Aspartate Amino 21 Transf (AST/SGOT) Alanine 37 Aminotransferase (AL T/SGPT) Alkaline Phosphatase 105 Total Protein 4.2 L Albumin 1.8 L Globulin 2.40 Albumin/Globulin 0.75 Ratio Test 02/06/19 12:33 Bedside Glucose 180 Medications Medication Current Medications Lactulose (Enulose) 20 gm DAILY PRN PO CONSTIPATION; Start 01/17/19 at 18:17 Acetaminophen (Tylenol Tab) 650 mg Q4H PRN PO PAIN Last administered on 01/23/19at 22:48; Admin Dose 650 MG; Start 01/17/19 at 18:17 Miscellaneous Information (Pending [facility] Order For Wound Care) This patient ramirez... PRN PRN XX WOUND CARE; Start 01/17/19 at 18:17 Albuterol/ Ipratropium (Duoneb) 3 ml Q2H RESP THERAPY PRN HHN SHORTNESS OF BREATH; Start 01/17/19 at 18:17 Bisacodyl (Dulcolax) 10 mg BID PRN PO CONSTIPATION; Start 01/17/19 at 18:17; Status Hold Folic Acid (Folic Acid) 1 mg DAILY PO Last administered on 02/06/19at 09:27; Admin Dose 1 MG; Start 01/17/19 at 18:17 Latanoprost (Xalatan) 1 drop HS BOTH EYES Last administered on 02/05/19at 21:52; Admin Dose 1 DROP; Start 01/17/19 at 18:17 Nitroglycerin (Nitroglycerin (Sl Tab) 0.4 Mg) 0.4 tab Q5M PRN SL CHEST PAIN; Start 01/17/19 at 18:17 Nystatin (Nystatin Powder) 1 applic BID TOP Last administered on 02/06/19at 09:44; Admin Dose 1 APPLIC; Start 01/17/19 at 18:17 IV Flush (NS 3 ml) 3 ml PER PROTOCOL IV ; Start 01/17/19 at 18:17 Miscellaneous Information 1 ea NOTE XX ; Start 01/17/19 at 18:17 Glucose (Glutose) 15 gm Q15M PRN PO DECREASED GLUCOSE; Start 01/17/19 at 18:17 Glucose (Glutose) 22.5 gm Q15M PRN PO DECREASED GLUCOSE; Start 01/17/19 at 18:17 Dextrose (D50w Syringe) 25 ml Q15M PRN IV DECREASED GLUCOSE Last administered on 02/05/19at 09:50; Admin Dose 25 ML; Start 01/17/19 at 18:17 Dextrose (D50w Syringe) 50 ml Q15M PRN IV DECREASED GLUCOSE; Start 01/17/19 at 18:17 Glucagon (Glucagen) 1 mg Q15M PRN IM DECREASED GLUCOSE; Start 01/17/19 at 18:17 Glucose (Glutose) 15 gm Q15M PRN BUCCAL DECREASED GLUCOSE; Start 01/17/19 at 18:17 Zinc Sulfate (Zinc Sulfate) 220 mg DAILY PO Last administered on 02/06/19 09:27; Admin Dose 220 MG; Start 01/17/19 at 18:17 Ascorbic Acid (Vitamin C) 250 mg DAILY PO Last administered on 02/06/19 09:27; Admin Dose 250 MG; Start 01/17/19 at 18:17 Multi-Ingredient Ointment (Aquaphor Oint 52.5 Gm) 1 applic BID TOP Last administered on 02/06/19 09:46; Admin Dose 1 APPLIC; Start 01/17/19 at 18:17 Bisacodyl (Dulcolax Supp) 10 mg DAILY PRN [place] CONSTIPATION; Start 01/17/19 at 18:17 Zinc Acetate/ Diphenhydramine (Benadryl 2% Cr) 1 applic Q6H PRN TOP ITCHING Last administered on 01/26/19 07:54; Admin Dose 1 APPLIC; Start 01/19/19 at 16:37 IV Flush (NS 10 ml) 10 ml PRN PRN IV IV PROTOCOL; Start 01/20/19 at 14:30 Cyanocobalamin (Vitamin B12 Inj) 1,000 mcg Q7D IM Last administered on 02/03/19 08:14; Admin Dose 1,000 MCG; Start 02/03/19 at 09:00 Metoprolol Tartrate (Lopressor) 5 mg Q4H PRN IV HR>110 Hold SBP<100; Start 01/26/19 at 14:30 Vancomycin HCl (Vanco Iv Per Pharmacy) VANCOMYCIN PER PHARMACY PER PROTOCOL XX ; Start 01/27/19 at 12:00 Enoxaparin Sodium (Lovenox) 60 mg DAILY SC Last administered on 02/03/19 08:06; Admin Dose 60 MG; Start 01/28/19 at 09:00; Status Hold Lorazepam (Ativan) 1 mg Q2 PRN IV SEIZURES Last administered on 02/02/19 09:18; Admin Dose 1 MG; Start 01/27/19 at 14:00 Metronidazole 100 ml @ 100 mls/hr Q8 IVPB Last administered on 02/06/19 06:03; Admin Dose 100 MLS/HR; Start 01/27/19 at 15:00 Atorvastatin Calcium (Lipitor) 40 mg QHS NGT Last administered on 02/05/19 21:50; Admin Dose 40 MG; Start 01/28/19 at 21:00 Docusate Sodium (Colace Liquid Cup) 100 mg BID NGT ; Start 01/27/19 at 22:00; Status Hold Terazosin HCl (Hytrin) 10 mg HS NGT Last administered on 02/05/19 21:51; Admin Dose 10 MG; Start 01/28/19 at 21:00 Levetiracetam 100 ml @ 400 mls/hr Q12 IVPB Last administered on 02/06/19 12:03; Admin Dose 400 MLS/HR; Start 01/28/19 at 09:00 Levothyroxine Sodium (Synthroid) 125 mcg BEFORE BREAKFAST NGT Last administered on 02/06/19 06:04; Admin Dose 125 MCG; Start 01/28/19 at 07:00 Ferrous Sulfate (Feosol Liquid Cup) 300 mg WITH MEALS GTB Last administered on 02/06/19 12:02; Admin Dose 300 MG; Start 01/28/19 at 11:30 Multivitamins (Multivitamin) 30 ml DAILY GTB Last administered on 02/06/19 09:26; Admin Dose 30 ML; Start 01/28/19 at 11:00 Diagnostic Test (Pha) (Accu-Chek) 1 ea Q4 XX Last administered on 02/06/19 09:46; Admin Dose 1 EA; Start 01/28/19 at 13:00 Nystatin/ Triamcinolone Acetonide (Mycolog Oint) 1 applic BID TOP Last administ ered on 02/06/19 09:45; Admin Dose 1 APPLIC; Start 01/28/19 at 22:30 Insulin Aspart (Novolog Insulin Pen) NOVOLOG *MILD* ALGORI... Q4 SC Last administered on 02/06/19 10:22; Admin Dose 2 UNIT; Start 01/29/19 at 05:00 Albuterol/ Ipratropium (Duoneb) 3 ml Q6HWA RESP THERAPY HHN Last administered on 02/06/19 08:41; Admin Dose 3 ML; Start 01/29/19 at 14:00 Epoetin Dae-epbx (RETACRIT(non-esrd)) 40,000 unit Mo@1700 SC Last administered on 02/03/19 18:12; Admin Dose 40,000 UNIT; Start 02/03/19 at 17:00 Mupirocin (Bactroban) 1 applic BID TOP Last administered on 02/06/19 09:45; Admin Dose 1 APPLIC; Start 01/30/19 at 15:26; Stop 02/09/19 at 15:25 Tobramycin Sulfate/Sodium Chloride (Nilesh Inhal) 300 mg BID RESP THERAPY NEB Last administered on 02/06/19 08:42; Admin Dose 300 MG; Start 01/30/19 at 20:00 Insulin Glargine (Lantus) 10 units DAILY@2000 SC Last administered on 02/05/19 21:52; Admin Dose 10 UNITS; Start 01/31/19 at 20:00 Potassium Chloride (Potassium Chloride Pwd/Soln) 20 meq TID NGT Last administered on 02/06/19 09:28; Admin Dose 20 MEQ; Start 02/02/19 at 09:00 Aztreonam 1 gm/ Dextrose 50 ml @ 100 mls/hr Q12 IVPB Last administered on 02/06/19 13:11; Admin Dose 100 MLS/HR; Start 02/03/19 at 21:00 Vancomycin HCl 750 mg/Dextrose 250 ml @ 125 mls/hr Q48H IVPB Last administered on 02/04/19 23:31; Admin Dose 125 MLS/HR; Start 02/04/19 at 23:00 Pantoprazole (Protonix Iv) 40 mg BID@06,18 IV Last administered on 02/06/19 06:03; Admin Dose 40 MG; Start 02/05/19 at 18:00 Metoprolol Tartrate (Lopressor) 12.5 mg BID PO Last administered on 02/06/19 09:28; Admin Dose 12.5 MG; Start 02/05/19 at 21:00 Tropicamide (Mydriacyl 1%) 1 drop Q30MIN BOTH EYES Last administered on 02/06/19 06:36; Admin Dose 1 DROP; Start 02/06/19 at 06:05; Stop 02/07/19 at 06:06 Eye Lubricant (Refresh Plus) 1 drop QID BOTH EYES Last administered on 02/06/19at 09:26; Admin Dose 1 DROP; Start 02/06/19 at 09:00 Eye Lubricant (Akwa Oint) 1 applic HS LEFT EYE ; Start 02/06/19 at 21:00 Dextrose 1,000 ml @ 50 mls/hr Q20H IV ; Start 02/06/19 at 13:30; Status UNLUCIAN GRANDE NP February 06, 2019 13:32
--- NOTE | 2019-02-06 13:43 | CONS ---
Assessment/Plan Assessment/Plan Hospital Course (Demo Recall) 88 yo male with multiple medical problems including DM, CRF, RA, PVD and chronic afib on Eliquis who presented to [facility] 01/05/19 with severe normocytic anemia and Hg ~7. 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 # Anemia-normocytic -Hg > 7 currently -Multifactorial at this time due to iron deficiency, vitamin b12 deficiency and also likely anemia of chronic kidney disease and inflammation. Elevated Methylmalonic acid level noted -Patient still has low iron level even though ferritin is elevated. Ferritin likely elevated due to acute phase reactant. pt is now s/p IV iron. Pt is s/p EGD and colonoscopy by Dr Frost 01/09/19 which didn't find an obvious GI etiology to explain anemia. AVM or a small lesion could be missed due to poor prep. Pt likely needs capsule endoscopy -continue vitamin b12 weekly as vitamin b12 was low normal and methylmalonic acid was elevated. Continue folate as well. -No evidence of hemolysis at this time. -Transfuse to keep Hgb > 7. 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 -This may be a pseudocyst or a precancerous pancreatic lesion. -It has been growing in size but patient is asymptomatic. EUS with biopsy is recommended and can either be done inpatient or outpatient setting. -The patient at this time is unlikely a candidate for a whipple surgery however. Thank you to Dr. Alatorre for allowing [facility] to participate in the care of this patient. A total of 40 minutes was spent in consultation with this patient and all his questions were answered. Consultation Date/Type/Reason Admit Date/Time Jan 17, 2019 at 15:58 Initial Consult Date 01/18/19 Type of Consult hematology Reason for Consultation anemia Requesting Provider: IVAN AKHTAR MD Date/Time of Note DATE: 02/06/19 TIME: 13:41 24 HR Interval Summary Free Text/Dictation no acute overnight events. HG stable Exam/Review of Systems Exam Vitals Vital Signs Date Temp Pulse Resp B/P (MAP) Pulse Ox O2 O2 Flow FiO2 Time Delivery Rate 5/16/19 79 12:25 02/06/19 98.4 22 133/56 99 Nasal 11:19 (81) Cannula 02/06/19 2.0 08:45 02/04/19 70 14:45 Intake and Output 02/05/19 02/05/19 02/06/19 1515:00 23:00 07:00 IntakeIntake Total 1746 ml 817 ml 1970 ml OutputOutput Total 340 ml 100 ml 700 ml BalanceBalance 1406 ml 717 ml 1270 ml Constitutional: alert, frail Psych: depression Head: normocephalic Eyes: nl conjunctiva ENMT: nl external ears & nose Neck: supple Respiratory: clear to auscultation Cardiovascular: regular rate and rhythm Gastrointestinal: soft Musculoskeletal: nl extremities to inspection Skin: other (desquamating skin rash) Results Result Diagram: 02/06/19 0640 02/06/19 0640 Results 24hrs Laboratory Tests Test 02/05/19 17:14 02/05/19 18:00 02/05/19 21:51 02/06/19 01:23 Hemoglobin 7.7 L Hematocrit 24.8 L Sodium Level 151 H Bedside Glucose 181 265 H 267 H Stool Occult Blood POSITIVE Test 02/06/19 05:12 02/06/19 06:38 02/06/19 06:40 02/06/19 09:49 Bedside Glucose 223 H 183 Phosphorus Level 2.9 Magnesium Level 2.1 White Blood Count 27.3 H Red Blood Count 2.53 L Hemoglobin 7.4 L Hematocrit 23.4 L Mean Corpuscular 92.5 Volume Mean Corpuscular 29.2 Hemoglobin Mean Corpuscular 31.6 L Hemoglobin Concent Red Cell 20.7 H Distribution Width Platelet Count 113 L Mean Platelet Volume 13.5 H Immature 1.100 H Granulocytes % Neutrophils % Segmented 87 H Neutrophils % (Manual) Band Neutrophils % 6 H (Manual) Lymphocytes % Lymphocytes % 5 L (Manual) Monocytes % Monocytes % (Manual) 2 Eosinophils % Basophils % Nucleated Red Blood 0.5 H Cells % Immature 0.290 H Granulocytes # Neutrophils # Neutrophils # 24.2 H (Manual) Band Neutrophils # 1.6 H Lymphocytes (Manual) 1.3 Lymphocytes # Monocytes # Monocytes # (Manual) 0.5 Eosinophils # Basophils # Nucleated Red Blood Cells # Platelet Estimate DECREASED Polychromasia 3+ Hypochromasia 1+ Poikilocytosis 3+ Anisocytosis 2+ Macrocytosis 2+ Target Cells 1+ Sodium Level 151 H Potassium Level 4.3 Chloride Level 118 H Carbon Dioxide Level 29 Anion Gap 4 L Blood Urea Nitrogen 60 H Creatinine 1.57 H Est Glomerular Filtrat Rate mL/min Glucose Level 143 # Calcium Level 7.0 L Total Bilirubin 0.4 Direct Bilirubin 0.00 Indirect Bilirubin 0.4 Aspartate Amino 21 Transf (AST/SGOT) Alanine 37 Aminotransferase (AL T/SGPT) Alkaline Phosphatase 105 Total Protein 4.2 L Albumin 1.8 L Globulin 2.40 Albumin/Globulin 0.75 Ratio Test 02/06/19 12:33 Bedside Glucose 180 Medications Medication Current Medications Lactulose (Enulose) 20 gm DAILY PRN PO CONSTIPATION; Start 01/17/19 at 18:17 Acetaminophen (Tylenol Tab) 650 mg Q4H PRN PO PAIN Last administered on 01/23/19at 22:48; Admin Dose 650 MG; Start 01/17/19 at 18:17 Miscellaneous Information (Pending [facility] Order For Wound Care) This patient ramirez... PRN PRN XX WOUND CARE; Start 01/17/19 at 18:17 Albuterol/ Ipratropium (Duoneb) 3 ml Q2H RESP THERAPY PRN HHN SHORTNESS OF BREATH; Start 01/17/19 at 18:17 Bisacodyl (Dulcolax) 10 mg BID PRN PO CONSTIPATION; Start 01/17/19 at 18:17; Status Hold Folic Acid (Folic Acid) 1 mg DAILY PO Last administered on 02/06/19at 09:27; Admin Dose 1 MG; Start 01/17/19 at 18:17 Latanoprost (Xalatan) 1 drop HS BOTH EYES Last administered on 02/05/19at 21:52; Admin Dose 1 DROP; Start 01/17/19 at 18:17 Nitroglycerin (Nitroglycerin (Sl Tab) 0.4 Mg) 0.4 tab Q5M PRN SL CHEST PAIN; Start 01/17/19 at 18:17 Nystatin (Nystatin Powder) 1 applic BID TOP Last administered on 02/06/19at 09:44; Admin Dose 1 APPLIC; Start 01/17/19 at 18:17 IV Flush (NS 3 ml) 3 ml PER PROTOCOL IV ; Start 01/17/19 at 18:17 Miscellaneous Information 1 ea NOTE XX ; Start 01/17/19 at 18:17 Glucose (Glutose) 15 gm Q15M PRN PO DECREASED GLUCOSE; Start 01/17/19 at 18:17 Glucose (Glutose) 22.5 gm Q15M PRN PO DECREASED GLUCOSE; Start 01/17/19 at 18:17 Dextrose (D50w Syringe) 25 ml Q15M PRN IV DECREASED GLUCOSE Last administered on 02/05/19at 09:50; Admin Dose 25 ML; Start 01/17/19 at 18:17 Dextrose (D50w Syringe) 50 ml Q15M PRN IV DECREASED GLUCOSE; Start 01/17/19 at 18:17 Glucagon (Glucagen) 1 mg Q15M PRN IM DECREASED GLUCOSE; Start 01/17/19 at 18:17 Glucose (Glutose) 15 gm Q15M PRN BUCCAL DECREASED GLUCOSE; Start 01/17/19 at 18:17 Zinc Sulfate (Zinc Sulfate) 220 mg DAILY PO Last administered on 02/06/19at 09:27; Admin Dose 220 MG; Start 01/17/19 at 18:17 Ascorbic Acid (Vitamin C) 250 mg DAILY PO Last administered on 02/06/19at 09:27; Admin Dose 250 MG; Start 01/17/19 at 18:17 Multi-Ingredient Ointment (Aquaphor Oint 52.5 Gm) 1 applic BID TOP Last admini stered on 02/06/19at 09:46; Admin Dose 1 APPLIC; Start 01/17/19 at 18:17 Bisacodyl (Dulcolax Supp) 10 mg DAILY PRN PA CONSTIPATION; Start 01/17/19 at 18:17 Zinc Acetate/ Diphenhydramine (Benadryl 2% Cr) 1 applic Q6H PRN TOP ITCHING Last administered on 01/26/19at 07:54; Admin Dose 1 APPLIC; Start 01/19/19 at 16:37 IV Flush (NS 10 ml) 10 ml PRN PRN IV IV PROTOCOL; Start 01/20/19 at 14:30 Cyanocobalamin (Vitamin B12 Inj) 1,000 mcg Q7D IM Last administered on 02/03/19at 08:14; Admin Dose 1,000 MCG; Start 02/03/19 at 09:00 Metoprolol Tartrate (Lopressor) 5 mg Q4H PRN IV HR>110 Hold SBP<100; Start 01/26/19 at 14:30 Vancomycin HCl (Vanco Iv Per Pharmacy) VANCOMYCIN PER PHARMACY PER PROTOCOL XX ; Start 01/27/19 at 12:00 Enoxaparin Sodium (Lovenox) 60 mg DAILY SC Last administered on 02/03/19 08: 06; Admin Dose 60 MG; Start 01/28/19 at 09:00; Status Hold Lorazepam (Ativan) 1 mg Q2 PRN IV SEIZURES Last administered on 02/02/19 09:18; Admin Dose 1 MG; Start 01/27/19 at 14:00 Metronidazole 100 ml @ 100 mls/hr Q8 IVPB Last administered on 02/06/19 06:03; Admin Dose 100 MLS/HR; Start 01/27/19 at 15:00 Atorvastatin Calcium (Lipitor) 40 mg QHS NGT Last administered on 02/05/19 21:50; Admin Dose 40 MG; Start 01/28/19 at 21:00 Docusate Sodium (Colace Liquid Cup) 100 mg BID NGT ; Start 01/27/19 at 22:00; Status Hold Terazosin HCl (Hytrin) 10 mg HS NGT Last administered on 02/05/19 21:51; Admin Dose 10 MG; Start 01/28/19 at 21:00 Levetiracetam 100 ml @ 400 mls/hr Q12 IVPB Last administered on 02/06/19 12:03; Admin Dose 400 MLS/HR; Start 01/28/19 at 09:00 Levothyroxine Sodium (Synthroid) 125 mcg BEFORE BREAKFAST NGT Last administered on 02/06/19 06:04; Admin Dose 125 MCG; Start 01/28/19 at 07:00 Ferrous Sulfate (Feosol Liquid Cup) 300 mg WITH MEALS GTB Last administered on 02/06/19 12:02; Admin Dose 300 MG; Start 01/28/19 at 11:30 Multivitamins (Multivitamin) 30 ml DAILY GTB Last administered on 02/06/19 09:26; Admin Dose 30 ML; Start 01/28/19 at 11:00 Diagnostic Test (Pha) (Accu-Chek) 1 ea Q4 XX Last administered on 02/06/19 09:46; Admin Dose 1 EA; Start 01/28/19 at 13:00 Nystatin/ Triamcinolone Acetonide (Mycolog Oint) 1 applic BID TOP Last administered on 02/06/19 09:45; Admin Dose 1 APPLIC; Start 01/28/19 at 22:30 Insulin Aspart (Novolog Insulin Pen) NOVOLOG *MILD* ALGORI... Q4 SC Last administered on 02/06/19 10:22; Admin Dose 2 UNIT; Start 01/29/19 at 05:00 Albuterol/ Ipratropium (Duoneb) 3 ml Q6HWA RESP THERAPY HHN Last administered on 02/06/19 08:41; Admin Dose 3 ML; Start 01/29/19 at 14:00 Epoetin Dae-epbx (RETACRIT(non-esrd)) 40,000 unit Mo@1700 SC Last administered on 02/03/19 18:12; Admin Dose 40,000 UNIT; Start 02/03/19 at 17:00 Mupirocin (Bactroban) 1 applic BID TOP Last administered on 02/06/19 09:45; Admin Dose 1 APPLIC; Start 01/30/19 at 15:26; Stop 02/09/19 at 15:25 Tobramycin Sulfate/Sodium Chloride (Nilesh Inhal) 300 mg BID RESP THERAPY NEB Last administered on 02/06/19 08:42; Admin Dose 300 MG; Start 01/30/19 at 20:00 Insulin Glargine (Lantus) 10 units DAILY@2000 SC Last administered on 02/05/19 21:52; Admin Dose 10 UNITS; Start 01/31/19 at 20:00 Potassium Chloride (Potassium Chloride Pwd/Soln) 20 meq TID NGT Last adm inistered on 02/06/19 09:28; Admin Dose 20 MEQ; Start 02/02/19 at 09:00 Aztreonam 1 gm/ Dextrose 50 ml @ 100 mls/hr Q12 IVPB Last administered on 02/06/19 13:11; Admin Dose 100 MLS/HR; Start 02/03/19 at 21:00 Vancomycin HCl 750 mg/Dextrose 250 ml @ 125 mls/hr Q48H IVPB Last administered on 02/04/19 23:31; Admin Dose 125 MLS/HR; Start 02/04/19 at 23:00 Pantoprazole (Protonix Iv) 40 mg BID@06,18 IV Last administered on 02/06/19at 06:03; Admin Dose 40 MG; Start 02/05/19 at 18:00 Metoprolol Tartrate (Lopressor) 12.5 mg BID PO Last administered on 02/06/19at 09:28; Admin Dose 12.5 MG; Start 02/05/19 at 21:00 Tropicamide (Mydriacyl 1%) 1 drop Q30MIN BOTH EYES Last administered on 02/06/19at 06:36; Admin Dose 1 DROP; Start 02/06/19 at 06:05; Stop 02/07/19 at 06:06 Eye Lubricant (Refresh Plus) 1 drop QID BOTH EYES Last administered on 02/06/19at 09:26; Admin Dose 1 DROP; Start 02/06/19 at 09:00 Eye Lubricant (Akwa Oint) 1 applic HS LEFT EYE ; Start 02/06/19 at 21:00 Dextrose 1,000 ml @ 50 mls/hr Q20H IV ; Start 02/06/19 at 13:30 OREN MARSH M.D. February 06, 2019 13:43
--- NOTE | 2019-02-06 15:24 | CONS ---
Assessment/Plan Assessment/Plan Hospital Course 88 yo M with multiple comorbidities who initially presented for evaluation of hiccups. He was noted to become acutely altered... for which neurology is consulted. He was noted to develop ams on 01/21 around 7pm and noted on 01/22 to be unresponsive... prompting a code stroke activation. The clinical picture suggests an acute toxic-metabolic encephalopathy.. Meningoencephalitis is, though, not yet excluded. MRI brain is without acute ischemia, though notable for chronic infarcts. 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 P: Cont Keppra 500 BID for now Ativan IV PRN prolonged seizure (> 5 min) Agree w/ ASA/Lipitor daily pending the above Limit sedating medications where possible Other medical management per primary Will follow Consultation Date/Type/Reason Admit Date/Time Jan 17, 2019 at 15:58 Type of Consult Neurology Reason for Consultation ams; eval for stroke Requesting Provider: IVAN AKHTAR MD Date/Time of Note DATE: 02/06/19 TIME: 15:24 24 HR Interval Summary Free Text/Dictation Continues acute care. Transferred to telemetry yesterday. Exam Vital Signs Vitals Vital Signs Date Temp Pulse Resp B/P (MAP) Pulse Ox O2 O2 Flow FiO2 Time Delivery Rate 02/06/19 88 28 100 Nasal 2.0 14:03 Cannula 02/06/19 98.4 133/56 11:19 (81) 02/04/19 70 14:45 Intake and Output 02/05/19 02/05/19 02/06/19 1414:59 22:59 06:59 IntakeIntake Total 1733 ml 890 ml 2070 ml OutputOutput Total 350 ml 130 ml 700 ml BalanceBalance 1383 ml 760 ml 1370 ml Exam PE: Gen Appearance: No Apparent Distress HEENT: Normocephalic; on nasal cannula Cardiovascular: Regular rate Abdomen: Soft Extremities: Dry, skin peeling NE: The patient was asleep, though easily arousable. Sparsely verbal. Unable to track. Follows simple appendicular commands. Cranial nerve examination was limited by mental status. Pupils were equal and reactive to light. There was no afferent pupillary defect. Funduscopic examination was limited. Face was grossly symmetric. Tone was normal. Muscle bulk was normal. I did not see fasciculations. The patient was generally weak, though antigravity in his L arm. Coordination and gait testing was limited by mental status. Arm and leg reflexes were within normal limits and symmetric. Gray's sign was absent. Plantar responses were flexor. NEGRA CORONA NP February 06, 2019 15:24 ANGE RAMIREZ February 07, 2019 15:24
--- NOTE | 2019-02-06 17:21 | CONS ---
Assessment/Plan Assessment/Plan Assessment/Plan (Daily) Assessment/Plan Hospital Course (Demo Recall) 88 [facility] SOB and febrile 1. Severe anemia likely due to chronic disease, last work up while admitted to [facility] about a week ago was neg for GI bleeding, including EGD/colon which was done -s/p EGD and colonoscopy by Dr Verdin 01/09/19 which didn't find an obvious GI etiology to explain anemia. AVM or a small lesion could be missed due to poor prep. Pt likely needs capsule endoscopy -Neg fob, elevate retic, Low iron, tibc, [place] [id number] 2. Cystic lesion along pancreas body - 4.3 cm cystic lesion along the pancreas body, enlarged since 10/10/2012 (previously 2.4 cm). 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 -CEA wnl 3. Severe gastritis 4. Hemorrhoids 5. Hital hernia 6. A fib, -eliquis was stopped 01/06 during previous admission, on ASA 7. COPD 8. HTN 9. Hypothyroidism 10. Bilateral groin cellulitis 11. Rheumatoid arthritis. 12. Diabetes mellitus. 13. Peripheral vascular disease. 14. CHF 15. 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 Sepsis secondary to pneumonia 18. Encephalopathy secondary to sepsis 19. Hypothermia 20. Coagulopathy -INR 1.77 21 anemia, multifactorial etiology, chronic disease, B12 deficiency, low iron, occult GI bleeding. There is no evidence of gross GI bleeding 20. rash Plan: Supportive ICU care Continue tube feeds, monitor residuals Pt will need outpatient EUS to evaluate pancreatic mass Recommend capsule endoscopy as outpatient Transfusion and monitor H&H closely Will send stool for occult blood discussed with the staff nurse I have discussed with the daughter if the bleeding continues and there is a significant drop in hematocrit requiring multiple transfusion then patient may need push enteroscopy. Daughter has declined at this point and wants to manage patient conservatively Consultation Date/Type/Reason Admit Date/Time Jan 17, 2019 at 15:58 Initial Consult Date 01/18/19 Requesting Provider: IVAN AKHTAR MD Date/Time of Note DATE: 02/06/19 TIME: 17:18 24 HR Interval Summary Constitutional: disoriented Exam/Review of Systems Exam Vitals Vital Signs Date Temp Pulse Resp B/P (MAP) Pulse Ox O2 O2 Flow FiO2 Time Delivery Rate 02/06/19 81 16:28 02/06/19 28 100 Nasal 2.0 14:03 Cannula 02/06/19 98.4 133/56 11:19 (81) 02/04/19 70 14:45 Intake and Output 02/05/19 02/05/19 02/06/19 1515:00 23:00 07:00 IntakeIntake Total 1746 ml 817 ml 1970 ml OutputOutput Total 340 ml 100 ml 700 ml BalanceBalance 1406 ml 717 ml 1270 ml Psych: confusion Results Result Diagram: 02/06/19 0640 02/06/19 0640 Results 24hrs Laboratory Tests Test 02/05/19 18:00 02/05/19 21:51 02/06/19 01:23 02/06/19 05:12 Stool Occult Blood POSITIVE Bedside Glucose 265 H 267 H 223 H Test 02/06/19 06:38 02/06/19 06:40 02/06/19 09:49 02/06/19 12:33 Phosphorus Level 2.9 Magnesium Level 2.1 White Blood Count 27.3 H Red Blood Count 2.53 L Hemoglobin 7.4 L Hematocrit 23.4 L Mean Corpuscular 92.5 Volume Mean Corpuscular 29.2 Hemoglobin Mean Corpuscular 31.6 L Hemoglobin Concent Red Cell 20.7 H Distribution Width Platelet Count 113 L Mean Platelet Volume 13.5 H Immature 1.100 H Granulocytes % Neutrophils % Segmented 87 H Neutrophils % (Manual) Band Neutrophils % 6 H (Manual) Lymphocytes % Lymphocytes % 5 L (Manual) Monocytes % Monocytes % (Manual) 2 Eosinophils % Basophils % Nucleated Red Blood 0.5 H Cells % Immature 0.290 H Granulocytes # Neutrophils # Neutrophils # 24.2 H (Manual) Band Neutrophils # 1.6 H Lymphocytes (Manual) 1.3 Lymphocytes # Monocytes # Monocytes # (Manual) 0.5 Eosinophils # Basophils # Nucleated Red Blood Cells # Platelet Estimate DECREASED Polychromasia 3+ Hypochromasia 1+ Poikilocytosis 3+ Anisocytosis 2+ Macrocytosis 2+ Target Cells 1+ Sodium Level 151 H Potassium Level 4.3 Chloride Level 118 H Carbon Dioxide Level 29 Anion Gap 4 L Blood Urea Nitrogen 60 H Creatinine 1.57 H Est Glomerular Filtrat Rate mL/min Glucose Level 143 # Calcium Level 7.0 L Total Bilirubin 0.4 Direct Bilirubin 0.00 Indirect Bilirubin 0.4 Aspartate Amino 21 Transf (AST/SGOT) Alanine 37 Aminotransferase (AL T/SGPT) Alkaline Phosphatase 105 Total Protein 4.2 L Albumin 1.8 L Globulin 2.40 Albumin/Globulin 0.75 Ratio Bedside Glucose 183 180 Medications Medication Current Medications Lactulose (Enulose) 20 gm DAILY PRN PO CONSTIPATION; Start 01/17/19 at 18:17 Acetaminophen (Tylenol Tab) 650 mg Q4H PRN PO PAIN Last administered on 01/23/19at 22:48; Admin Dose 650 MG; Start 01/17/19 at 18:17 Miscellaneous Information [facility] This patient ramirez... PRN PRN XX WOUND CARE; Start 01/17/19 at 18:17 Albuterol/ Ipratropium (Duoneb) 3 ml Q2H RESP THERAPY PRN HHN SHORTNESS OF BREATH; Start 01/17/19 at 18:17 Bisacodyl (Dulcolax) 10 mg BID PRN PO CONSTIPATION; Start 01/17/19 at 18:17; Status Hold Folic Acid (Folic Acid) 1 mg DAILY PO Last administered on 02/06/19at 09:27; Admin Dose 1 MG; Start 01/17/19 at 18:17 Latanoprost (Xalatan) 1 drop HS BOTH EYES Last administered on 02/05/19at 21:52; Admin Dose 1 DROP; Start 01/17/19 at 18:17 Nitroglycerin (Nitroglycerin (Sl Tab) 0.4 Mg) 0.4 tab Q5M PRN SL CHEST PAIN; Start 01/17/19 at 18:17 Nystatin (Nystatin Powder) 1 applic BID TOP Last administered on 02/06/19at 09:44; Admin Dose 1 APPLIC; Start 01/17/19 at 18:17 IV Flush (NS 3 ml) 3 ml PER PROTOCOL IV ; Start 01/17/19 at 18:17 Miscellaneous Information 1 ea NOTE XX ; Start 01/17/19 at 18:17 Glucose (Glutose) 15 gm Q15M PRN PO DECREASED GLUCOSE; Start 01/17/19 at 18:17 Glucose (Glutose) 22.5 gm Q15M PRN PO DECREASED GLUCOSE; Start 01/17/19 at 18:17 Dextrose (D50w Syringe) 25 ml Q15M PRN IV DECREASED GLUCOSE Last administered on 02/05/19at 09:50; Admin Dose 25 ML; Start 01/17/19 at 18:17 Dextrose (D50w Syringe) 50 ml Q15M PRN IV DECREASED GLUCOSE; Start 01/17/19 at 18:17 Glucagon (Glucagen) 1 mg Q15M PRN IM DECREASED GLUCOSE; Start 01/17/19 at 18:17 Glucose (Glutose) 15 gm Q15M PRN BUCCAL DECREASED GLUCOSE; Start 01/17/19 at 18:17 Zinc Sulfate (Zinc Sulfate) 220 mg DAILY PO Last administered on 02/06/19 09:27; Admin Dose 220 MG; Start 01/17/19 at 18:17 Ascorbic Acid (Vitamin C) 250 mg DAILY PO Last administered on 02/06/19 09:27; Admin Dose 250 MG; Start 01/17/19 at 18:17 Multi-Ingredient Ointment (Aquaphor Oint 52.5 Gm) 1 applic BID TOP Last administered on 02/06/19at 09:46; Admin Dose 1 APPLIC; Start 01/17/19 at 18:17 Bisacodyl (Dulcolax Supp) 10 mg DAILY PRN [place] CONSTIPATION; Start 01/17/19 at 18:17 Zinc Acetate/ Diphenhydramine (Benadryl 2% Cr) 1 applic Q6H PRN TOP ITCHING Last administered on 01/26/19at 07:54; Admin Dose 1 APPLIC; Start 01/19/19 at 16:37 IV Flush (NS 10 ml) 10 ml PRN PRN IV IV PROTOCOL; Start 01/20/19 at 14:30 Cyanocobalamin (Vitamin B12 Inj) 1,000 mcg Q7D IM Last administered on 02/03/19at 08:14; Admin Dose 1,000 MCG; Start 02/03/19 at 09:00 Metoprolol Tartrate (Lopressor) 5 mg Q4H PRN IV HR>110 Hold SBP<100; Start 01/26/19 at 14:30 Vancomycin HCl (Vanco Iv Per Pharmacy) VANCOMYCIN PER PHARMACY PER PROTOCOL XX ; Start 01/27/19 at 12:00 Enoxaparin Sodium (Lovenox) 60 mg DAILY SC Last administered on 02/03/19at 08:06; Admin Dose 60 MG; Start 01/28/19 at 09:00; Status Hold Lorazepam (Ativan) 1 mg Q2 PRN IV SEIZURES Last administered on 02/02/19 09:18; Admin Dose 1 MG; Start 01/27/19 at 14:00 Metronidazole 100 ml @ 100 mls/hr Q8 IVPB Last administered on 02/06/19 14:50; Admin Dose 100 MLS/HR; Start 01/27/19 at 15:00 Atorvastatin Calcium (Lipitor) 40 mg QHS NGT Last administered on 02/05/19 21:50; Admin Dose 40 MG; Start 01/28/19 at 21:00 Docusate Sodium (Colace Liquid Cup) 100 mg BID NGT ; Start 01/27/19 at 22:00; Status Hold Terazosin HCl (Hytrin) 10 mg HS NGT Last administered on 02/05/19 21:51; Admin Dose 10 MG; Start 01/28/19 at 21:00 Levetiracetam 100 ml @ 400 mls/hr Q12 IVPB Last administered on 02/06/19 12:03; Admin Dose 400 MLS/HR; Start 01/28/19 at 09:00 Levothyroxine Sodium (Synthroid) 125 mcg BEFORE BREAKFAST NGT Last administered on 02/06/19 06:04; Admin Dose 125 MCG; Start 01/28/19 at 07:00 Ferrous Sulfate (Feosol Liquid Cup) 300 mg WITH MEALS GTB Last administered on 02/06/19 12:02; Admin Dose 300 MG; Start 01/28/19 at 11:30 Multivitamins (Multivitamin) 30 ml DAILY GTB Last administered on 02/06/19 09:26; Admin Dose 30 ML; Start 01/28/19 at 11:00 Diagnostic Test (Pha) (Accu-Chek) 1 ea Q4 XX Last administered on 02/06/19 12:25; Admin Dose 1 EA; Start 01/28/19 at 13:00 Nystatin/ Triamcinolone Acetonide (Mycolog Oint) 1 applic BID TOP Last administered on 02/06/19 09:45; Admin Dose 1 APPLIC; Start 01/28/19 at 22:30 Insulin Aspart (Novolog Insulin Pen) NOVOLOG *MILD* ALGORI... Q4 SC Last a dministered on 02/06/19 13:47; Admin Dose 1 UNIT; Start 01/29/19 at 05:00 Albuterol/ Ipratropium (Duoneb) 3 ml Q6HWA RESP THERAPY HHN Last administered on 02/06/19 14:02; Admin Dose 3 ML; Start 01/29/19 at 14:00 Epoetin Dae-epbx (RETACRIT(non-esrd)) 40,000 unit Mo@1700 SC Last administered on 02/03/19 18:12; Admin Dose 40,000 UNIT; Start 02/03/19 at 17:00 Mupirocin (Bactroban) 1 applic BID TOP Last administered on 02/06/19 09:45; Admin Dose 1 APPLIC; Start 01/30/19 at 15:26; Stop 02/09/19 at 15:25 Tobramycin Sulfate/Sodium Chloride (Nilesh Inhal) 300 mg BID RESP THERAPY NEB Last administered on 02/06/19 08:42; Admin Dose 300 MG; Start 01/30/19 at 20:00 Insulin Glargine (Lantus) 10 units DAILY@2000 SC Last administered on 02/05/19 21:52; Admin Dose 10 UNITS; Start 01/31/19 at 20:00 Potassium Chloride (Potassium Chloride Pwd/Soln) 20 meq TID NGT Last administered on 02/06/19 12:25; Admin Dose 20 MEQ; Start 02/02/19 at 09:00 Aztreonam 1 gm/ Dextrose 50 ml @ 100 mls/hr Q12 IVPB Last administered on 02/06/19 13:11; Admin Dose 100 MLS/HR; Start 02/03/19 at 21:00 Vancomycin HCl 750 mg/Dextrose 250 ml @ 125 mls/hr Q48H IVPB Last administered on 02/04/19 23:31; Admin Dose 125 MLS/HR; Start 02/04/19 at 23:00 Pantoprazole (Protonix Iv) 40 mg BID@06,18 IV Last administered on 02/06/19 06:03; Admin Dose 40 MG; Start 02/05/19 at 18:00 Metoprolol Tartrate (Lopressor) 12.5 mg BID PO Last administered on 02/06/19 09:28; Admin Dose 12.5 MG; Start 02/05/19 at 21:00 Tropicamide (Mydriacyl 1%) 1 drop Q30MIN BOTH EYES Last administered on 02/06/19at 06:36; Admin Dose 1 DROP; Start 02/06/19 at 06:05; Stop 02/07/19 at 06:06 Eye Lubricant (Refresh Plus) 1 drop QID BOTH EYES Last administered on 02/06/19at 12:25; Admin Dose 1 DROP; Start 02/06/19 at 09:00 Eye Lubricant (Akwa Oint) 1 applic HS LEFT EYE ; Start 02/06/19 at 21:00 Dextrose 1,000 ml @ 50 mls/hr Q20H IV Last administered on 02/06/19at 14:07; Admin Dose 50 MLS/HR; Start 02/06/19 at 13:30 MICHELLE VERDIN MD February 06, 2019 17:21
[2019-02-06] MEDS: LATANOPROST 0.005% 2.5 ML OPH BOTH EYES SCH (20:48)
[2019-02-06] MEDS: ATORVASTATIN 40 MG TAB NGT SCH (20:50)
[2019-02-06] MEDS: TERAZOSIN 5 MG CAP NGT SCH (20:50)
[2019-02-06] MEDS: INSULIN GLARGINE [LANTus] (100 UNITS/ML) SYG SC SCH (20:58)
[2019-02-06] MEDS: OCULAR LUBRICANT 3.5 GM OPH OINT LEFT EYE SCH (22:38)
[2019-02-06] MEDS: VANCOMYCIN 750 MG in DEXTROSE 5% 250 ML IVPB SCH (23:16)
[2019-02-07] VITALS (14 sets, daily range): BP systolic 104–125; BP diastolic 52–73; PULSE 70–88; RESP 18–22
[2019-02-07] MEDS: ALBUTEROL/IPRATROPIUM (NEB) 3 ML AMP HHN PRN ×2 (01:34→05:45)
[2019-02-07] MEDS: ACCU-CHEK XX SCH ×6 (01:43→20:58)
[2019-02-07] MEDS: INSULIN ASPART [NOVOLOG] 3 ML PEN SC SCH ×6 (01:49→20:34)
[2019-02-07] MEDS: PANTOPRAZOLE 40 MG INJ IV SCH (05:54)
[2019-02-07] MEDS: metroNIDAZOLE 500 MG/NS (PMX) 100 ML IVPB SCH (05:54)
[2019-02-07] MEDS: LEVOTHYROXINE 125 MCG TAB NGT SCH (06:11)
[2019-02-07] MEDS ORDERED: FUROSEMIDE 20 MG INJ IV ONE (07:30)
[2019-02-07] MEDS ORDERED: ALBUTEROL/IPRATROPIUM (NEB) 3 ML AMP HHN STA (07:30)
[2019-02-07] MEDS: FERROUS SULFATE 60 MG/ML 5ML CUP GTB SCH ×3 (07:43→17:13)
[2019-02-07] MEDS: ALBUTEROL/IPRATROPIUM (NEB) 3 ML AMP HHN SCH ×3 (08:00→20:39)
[2019-02-07] MEDS: CARBOXYMETHYLCELLULOSE 0.5% 0.4 ML OPH BOTH EYES SCH ×4 (08:21→20:29)
[2019-02-07] MEDS: LEVETIRACETAM 500 MG (PMX) 100 ML IVPB SCH ×2 (08:21→20:33)
[2019-02-07] MEDS: ASCORBIC ACID 250 MG TAB PO SCH (08:22)
[2019-02-07] MEDS: METOPROLOL 25 MG TAB PO SCH ×2 (08:22→20:32)
[2019-02-07] MEDS: MULTIVITAMINS 30 ML CUP GTB SCH (08:22)
[2019-02-07] MEDS: POTASSIUM CHLORIDE 20 MEQ POWDER FOR ORAL SOLN NGT SCH ×2 (08:22→20:32)
[2019-02-07] MEDS: ZINC SULFATE 220 MG CAP PO SCH (08:22)
[2019-02-07] MEDS: FOLIC ACID 1 MG TAB PO SCH (08:22)
[2019-02-07] MEDS: NYSTATIN 30 GM POWDER BTL TOP SCH ×2 (08:24→20:35)
[2019-02-07] MEDS: NYSTATIN/TRIAMCINOLONE 15 GM OINT TOP SCH ×2 (08:24→20:36)
[2019-02-07] MEDS: MUPIROCIN 2% 22 GM OINT TOP SCH ×2 (08:25→20:36)
[2019-02-07] MEDS: AQUAPHOR 52.5 GM OINT TOP SCH ×2 (08:25→20:34)
[2019-02-07] MEDS: BALSAM PERU/CASTOR OIL 60 GM TUBE TOP SCH ×2 (08:26→20:34)
[2019-02-07] MEDS: TOBRAMYCIN/0.25NS 300 MG/5 ML INHAL NEB SCH ×2 (08:29→20:39)
[2019-02-07] MEDS: DEXTROSE 5% 1,000 ML IV SCH (09:30)
[2019-02-07] MEDS: AZTREONAM 1 GM in DEXTROSE 5% 50 ML IVPB SCH ×2 (11:36→20:33)
--- NOTE | 2019-02-07 12:18 | CONS ---
Assessment/Plan Assessment/Plan Assessment/Plan (Daily) Assessment/Plan (Daily) Assessment/Plan Hospital Course (Demo Recall) 88 yo male presents from [facility] for SOB and febrile 1. Severe anemia likely due to chronic disease, last work up while admitted to [facility] about a week ago was neg for GI bleeding, including EGD/colon which was done -s/p EGD and colonoscopy by Dr Verdin 01/09/19 which didn't find an obvious GI etiology to explain anemia. AVM or a small lesion could be missed due to poor prep. Pt likely needs capsule endoscopy -Neg fob, elevate retic, Low iron, tibc, [place] [id number] 2. Cystic lesion along pancreas body - 4.3 cm cystic lesion along the pancreas body, enlarged since 10/10/2012 (previously 2.4 cm). 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 -CEA wnl 3. Severe gastritis 4. Hemorrhoids 5. Hital hernia 6. A fib, -eliquis was stopped 01/06 during previous admission, on ASA 7. COPD 8. HTN 9. Hypothyroidism 10. Bilateral groin cellulitis 11. Rheumatoid arthritis. 12. Diabetes mellitus. 13. Peripheral vascular disease. 14. CHF 15. 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 Sepsis secondary to pneumonia 18. Encephalopathy secondary to sepsis 19. Hypothermia 20. Coagulopathy -INR 1.77 21 anemia, multifactorial etiology, chronic disease, B12 deficiency, low iron, occult GI bleeding. There is no evidence of gross GI bleeding 20. rash, desquamating 23 malnutrition Albumin is 1.9 Plan: Supportive ICU care Continue tube feeds, monitor residuals Pt will need outpatient EUS to evaluate pancreatic mass Recommend capsule endoscopy as outpatient Transfusion and monitor H&H closely Will send stool for occult blood discussed with the staff nurse I have discussed with the daughter if the bleeding continues and there is a significant drop in hematocrit requiring multiple transfusion then patient may need push enteroscopy. Daughter has declined at this point and wants to manage patient conservatively Beneprotein through NG tube Consultation Date/Type/Reason Admit Date/Time Jan 17, 2019 at 15:58 Initial Consult Date 01/18/19 Requesting Provider: IVAN AKHTAR MD Date/Time of Note DATE: 02/07/19 TIME: 12:15 24 HR Interval Summary Constitutional: disoriented, requiring IVF, requiring O2 Exam/Review of Systems Exam Vitals Vital Signs Date Temp Pulse Resp B/P (MAP) Pulse Ox O2 O2 Flow FiO2 Time Delivery Rate 02/07/19 81 12:09 02/07/19 98.3 20 115/63 97 Nasal 11:16 (80) Cannula 02/07/19 2.0 08:30 02/04/19 70 14:45 Intake and Output 02/06/19 02/06/19 02/07/19 1515:00 23:00 07:00 IntakeIntake Total 350 ml 100 ml 1720 ml OutputOutput Total 650 ml BalanceBalance 350 ml 100 ml 1070 ml Psych: confusion Neck: supple, non-tender Gastrointestinal: soft, nl liver, spleen, non-tender Extremities: normal pulses Skin: other (Desquamating rash) Results Result Diagram: 02/07/19 0553 02/07/19 0553 Results 24hrs Laboratory Tests Test 02/06/19 12:33 02/06/19 18:03 02/06/19 20:41 02/07/19 01:31 Bedside Glucose 180 208 235 H 216 Test 02/07/19 05:33 02/07/19 05:53 02/07/19 07:30 02/07/19 08:47 Bedside Glucose 185 201 White Blood Count 32.8 #H Red Blood Count 2.66 L Hemoglobin 7.7 L Hematocrit 24.8 L Mean Corpuscular 93.2 Volume Mean Corpuscular 28.9 L Hemoglobin Mean Corpuscular 31.0 L Hemoglobin Concen t Red Cell 21.1 H Distribution Width Platelet Count 124 L Mean Platelet 13.2 H Volume Immature 0.800 H Granulocytes % Neutrophils % 91.7 H Lymphocytes % 5.2 L Monocytes % 1.5 Eosinophils % 0.6 Basophils % 0.2 Nucleated Red 0.4 H Blood Cells % Immature 0.260 H Granulocytes # Neutrophils # 30.1 H Lymphocytes # 1.7 Monocytes # 0.5 Eosinophils # 0.2 Basophils # 0.1 Nucleated Red 0.1 H Blood Cells # Sodium Level 148 H Potassium Level 4.2 Chloride Level 116 H Carbon Dioxide 29 Level Anion Gap 3 L Blood Urea 59 H Nitrogen Creatinine 1.57 H Est Glomerular Filtrat Rate mL/min Glucose Level 176 Calcium Level 7.1 L Phosphorus Level 2.9 Magnesium Level 2.1 Total Bilirubin 0.4 Direct Bilirubin 0.00 Indirect 0.4 Bilirubin Aspartate Amino 22 Transf (AST/SGOT) Alanine 32 Aminotransferase (ALT/SGPT) Alkaline 107 Phosphatase Total Protein 4.3 L Albumin 1.9 L Globulin 2.40 Albumin/Globulin 0.79 Ratio Blood Gas Blood arterial Specimen Source Arterial Blood 02/07/2019 8:00:1 Date Drawn 8 AM Arterial Blood pH 7.485 H (Temp corrected) Arterial Blood 38.2 pCO2 (Temp correct) Arterial Blood 73.4 L pO2 (Temp corrected) Arterial Blood 28.1 H HCO3 Arterial Blood 4.4 H Base Excess Arterial Blood 94.9 L Oxygen Saturation Manuel Test ACCEPTAB Arterial Blood Right Radial Gas Puncture Site Arterial 1.0 Blood Carboxyhemo globin Arterial Blood 0.6 Methemoglobin Blood Gas A-a O2 73.9 H Differential Oxyhemoglobin 93.4 Percent Blood Gas 37.0 Temperature Blood Gas NASAL CANNULA Modality FiO2 27.0 Blood Gas MDA Notified Whom Blood Gas 02/07/2019 8:07:5 Notified Time 5 AM Medications Medication Current Medications Lactulose (Enulose) 20 gm DAILY PRN PO CONSTIPATION; Start 01/17/19 at 18:17 Acetaminophen (Tylenol Tab) 650 mg Q4H PRN PO PAIN Last administered on 01/23/19at 22:48; Admin Dose 650 MG; Start 01/17/19 at 18:17 Miscellaneous Information (Pending [facility] Order For Wound Care) This patient ramirez... PRN PRN XX WOUND CARE; Start 01/17/19 at 18:17 Albuterol/ Ipratropium (Duoneb) 3 ml Q2H RESP THERAPY PRN HHN SHORTNESS OF BREATH Last administered on 02/07/19at 05:45; Admin Dose 3 ML; Start 01/17/19 at 18:17 Bisacodyl (Dulcolax) 10 mg BID PRN PO CONSTIPATION; Start 01/17/19 at 18:17; Status Hold Folic Acid (Folic Acid) 1 mg DAILY PO Last administered on 02/07/19at 08:22; Admin Dose 1 MG; Start 01/17/19 at 18:17 Latanoprost (Xalatan) 1 drop HS BOTH EYES Last administered on 02/06/19at 20:48; Admin Dose 1 DROP; Start 01/17/19 at 18:17 Nitroglycerin (Nitroglycerin (Sl Tab) 0.4 Mg) 0.4 tab Q5M PRN SL CHEST PAIN; Start 01/17/19 at 18:17 Nystatin (Nystatin Powder) 1 applic BID TOP Last administered on 02/07/19at 08:24; Admin Dose 1 APPLIC; Start 01/17/19 at 18:17 IV Flush (NS 3 ml) 3 ml PER PROTOCOL IV ; Start 01/17/19 at 18:17 Miscellaneous Information 1 ea NOTE XX ; Start 01/17/19 at 18:17 Glucose (Glutose) 15 gm Q15M PRN PO DECREASED GLUCOSE; Start 01/17/19 at 18:17 Glucose (Glutose) 22.5 gm Q15M PRN PO DECREASED GLUCOSE; Start 01/17/19 at 18:17 Dextrose (D50w Syringe) 25 ml Q15M PRN IV DECREASED GLUCOSE Last administered on 02/05/19at 09:50; Admin Dose 25 ML; Start 01/17/19 at 18:17 Dextrose (D50w Syringe) 50 ml Q15M PRN IV DECREASED GLUCOSE; Start 01/17/19 at 18:17 Glucagon (Glucagen) 1 mg Q15M PRN IM DECREASED GLUCOSE; Start 01/17/19 at 18:17 Glucose (Glutose) 15 gm Q15M PRN BUCCAL DECREASED GLUCOSE; Start 01/17/19 at 18:17 Zinc Sulfate (Zinc Sulfate) 220 mg DAILY PO Last administered on 02/07/19at 08:22; Admin Dose 220 MG; Start 01/17/19 at 18:17 Ascorbic Acid (Vitamin C) 250 mg DAILY PO Last administered on 02/07/19at 08:22; Admin Dose 250 MG; Start 01/17/19 at 18:17 Bisacodyl (Dulcolax Supp) 10 mg DAILY PRN [place] CONSTIPATION; Start 01/17/19 at 18:17 Zinc Acetate/ Diphenhydramine (Benadryl 2% Cr) 1 applic Q6H PRN TOP ITCHING Last administered on 01/26/19at 07:54; Admin Dose 1 APPLIC; Start 01/19/19 at 16:37 IV Flush (NS 10 ml) 10 ml PRN PRN IV IV PROTOCOL; Start 01/20/19 at 14:30 Cyanocobalamin (Vitamin B12 Inj) 1,000 mcg Q7D IM Last administered on 02/03/19 08:14; Admin Dose 1,000 MCG; Start 02/03/19 at 09:00 Metoprolol Tartrate (Lopressor) 5 mg Q4H PRN IV HR>110 Hold SBP<100; Start 01/26/19 at 14:30 Vancomycin HCl (Vanco Iv Per Pharmacy) VANCOMYCIN PER PHARMACY PER PROTOCOL XX ; Start 01/27/19 at 12:00 Enoxaparin Sodium (Lovenox) 60 mg DAILY SC Last administered on 02/03/19 08:06; Admin Dose 60 MG; Start 01/28/19 at 09:00; Status Hold Lorazepam (Ativan) 1 mg Q2 PRN IV SEIZURES Last administered on 02/02/19 09:18; Admin Dose 1 MG; Start 01/27/19 at 14:00 Atorvastatin Calcium (Lipitor) 40 mg QHS NGT Last administered on 02/06/19 20:50; Admin Dose 40 MG; Start 01/28/19 at 21:00 Docusate Sodium (Colace Liquid Cup) 100 mg BID NGT ; Start 01/27/19 at 22:00; Status Hold Terazosin HCl (Hytrin) 10 mg HS NGT Last administered on 02/06/19 20:50; Admin Dose 10 MG; Start 01/28/19 at 21:00 Levetiracetam 100 ml @ 400 mls/hr Q12 IVPB Last administered on 02/07/19 08:21; Admin Dose 400 MLS/HR; Start 01/28/19 at 09:00 Levothyroxine Sodium (Synthroid) 125 mcg BEFORE BREAKFAST NGT Last administered on 02/07/19 06:11; Admin Dose 125 MCG; Start 01/28/19 at 07:00 Ferrous Sulfate (Feosol Liquid Cup) 300 mg WITH MEALS GTB Last administered on 02/07/19 07:43; Admin Dose 300 MG; Start 01/28/19 at 11:30 Multivitamins (Multivitamin) 30 ml DAILY GTB Last administered on 02/07/19 08:22; Admin Dose 30 ML; Start 01/28/19 at 11:00 Diagnostic Test (Pha) (Accu-Chek) 1 ea Q4 XX Last administered on 02/07/19 09:00; Admin Dose 1 EA; Start 01/28/19 at 13:00 Nystatin/ Triamcinolone Acetonide (Mycolog Oint) 1 applic BID TOP Last administered on 02/07/19 08:24; Admin Dose 1 APPLIC; Start 01/28/19 at 22:30 Insulin Aspart (Novolog Insulin Pen) NOVOLOG *MILD* ALGORI... Q4 SC Last administered on 02/07/19 10:05; Admin Dose 2 UNIT; Start 01/29/19 at 05:00 Albuterol/ Ipratropium (Duoneb) 3 ml Q6HWA RESP THERAPY HHN Last administered on 02/06/19 20:26; Admin Dose 3 ML; Start 01/29/19 at 14:00 Epoetin Dae-epbx (RETACRIT(non-esrd)) 40,000 unit Mo@1700 SC Last administered on 02/03/19 18:12; Admin Dose 40,000 UNIT; Start 02/03/19 at 17:00 Mupirocin (Bactroban) 1 applic BID TOP Last administered on 02/07/19 08:25; Admin Dose 1 APPLIC; Start 01/30/19 at 15:26; Stop 02/09/19 at 15:25 Tobramycin Sulfate/Sodium Chloride (Nilesh Inhal) 300 mg BID RESP THERAPY NEB Last administered on 02/07/19 08:29; Admin Dose 300 MG; Start 01/30/19 at 20:00 Insulin Glargine (Lantus) 10 units DAILY@2000 SC Last administered on 02/06/19 20:58; Admin Dose 10 UNITS; Start 01/31/19 at 20:00 Aztreonam 1 gm/ Dextrose 50 ml @ 100 mls/hr Q12 IVPB Last administered on 02/07/19 11:36; Admin Dose 100 MLS/HR; Start 02/03/19 at 21:00 Vancomycin HCl 750 mg/Dextrose 250 ml @ 125 mls/hr Q48H IVPB Last administered on 02/06/19 23:16; Admin Dose 125 MLS/HR; Start 02/04/19 at 23:00 Pantoprazole (Protonix Iv) 40 mg BID@06,18 IV Last administered on 02/07/19 05:54; Admin Dose 40 MG; Start 02/05/19 at 18:00 Metoprolol Tartrate (Lopressor) 12.5 mg BID PO Last administered on 02/07/19 08:22; Admin Dose 12.5 MG; Start 02/05/19 at 21:00 Eye Lubricant (Refresh Plus) 1 drop QID BOTH EYES Last administered on 9at 08:21; Admin Dose 1 DROP; Start 02/06/19 at 09:00 Eye Lubricant (Akwa Oint) 1 applic HS LEFT EYE Last administered on 02/06/19 22:38; Admin Dose 1 APPLIC; Start 02/06/19 at 21:00 Dextrose 1,000 ml @ 50 mls/hr Q20H IV Last administered on 02/06/19 23:17; Admin Dose 50 MLS/HR; Start 02/06/19 at 13:30 Potassium Chloride (Potassium Chloride Pwd/Soln) 20 meq BID NGT Last administered on 02/07/19 08:22; Admin Dose 20 MEQ; Start 02/06/19 at 21:00 Multi-Ingredient Ointment (Aquaphor Oint 52.5 Gm) 1 applic BID TOP Last administered on 02/07/19 08:25; Admin Dose 1 APPLIC; Start 02/06/19 at 22:40 MICHELLE VERDIN MD February 07, 2019 12:18
[2019-02-07] MEDS ORDERED: morphine 2 MG INJ IV STA (12:56)
--- NOTE | 2019-02-07 13:12 | CONS ---
Assessment/Plan Assessment/Plan Hospital Course (Demo Recall) No events, obtunded Skin biopsy revealed no evidence of vasculitis no evidence of malignancy. Please see full report in chart Wound culture grew Corynebacterium species. Sputum culture grew E. coli C dif neg Antimicrobials: Vancomycin, aztreonam, Flagyl, tobramycin inhalation Indwelling: Left subclavian triple-lumen catheter, Wade catheter, NG tube Allergy: Penicillin, sulfa Physical examination: Obese well-developed chronically ill-appearing - Afghan man who is lethargic, in no distress. Head atraumatic normocephalic sclera nonicteric. Neck is supple chest rise symmetrical breath sounds diminished bases. Heart: S1-S2. Abdomen obese soft bowel sounds present extrem ities without cyanosis, bilateral edema Assessment: 1. Severe sepsis s/p shock 2. Acute encephalopathy 3. Seizures 4. Healthcare acquired, possible aspiration pneumonia 5. Coronary artery disease/history of CABG 6. Advanced rheumatoid arthritis 5. Chronic atrial fibrillation 6. Diabetes 7. BPH 9. Acute on chronic anemia===> s/p EGD/colonoscopy 01/09/19 10. Status post right epididymitis 11. Pancreatic lesion per CT, unlikely neoplasm per oncology notes 12. 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, s/p punch bx Plan: Clinically unchanged, dc Flagyl, continue other abx, follow skin biopsy results== sent to [facility] for final identification, steroids taper, prognosis poor Consultation Date/Type/Reason Admit Date/Time Jan 17, 2019 at 15:58 Initial Consult Date 01/18/19 Type of Consult id Requesting Provider: IVAN AKHTAR MD Date/Time of Note DATE: 02/07/19 TIME: 13:11 Exam/Review of Systems Exam Vitals Vital Signs Date Temp Pulse Resp B/P (MAP) Pulse Ox O2 O2 Flow FiO2 Time Delivery Rate 02/07/19 81 12:09 02/07/19 98.3 20 115/63 97 Nasal 11:16 (80) Cannula 02/07/19 2.0 08:30 02/04/19 70 14:45 Intake and Output 02/06/19 02/06/19 02/07/19 1515:00 23:00 07:00 IntakeIntake Total 350 ml 100 ml 1720 ml OutputOutput Total 650 ml BalanceBalance 350 ml 100 ml 1070 ml Results Result Diagram: 02/07/19 0553 02/07/19 0553 Results 24hrs Laboratory Tests Test 02/06/19 18:03 02/06/19 20:41 02/07/19 01:31 02/07/19 05:33 Bedside Glucose 208 235 H 216 185 Test 02/07/19 05:53 02/07/19 07:30 02/07/19 08:47 White Blood Count 32.8 #H Red Blood Count 2.66 L Hemoglobin 7.7 L Hematocrit 24.8 L Mean Corpuscular 93.2 Volume Mean Corpuscular 28.9 L Hemoglobin Mean Corpuscular 31.0 L Hemoglobin Concen t Red Cell 21.1 H Distribution Width Platelet Count 124 L Mean Platelet 13.2 H Volume Immature 0.800 H Granulocytes % Neutrophils % 91.7 H Lymphocytes % 5.2 L Monocytes % 1.5 Eosinophils % 0.6 Basophils % 0.2 Nucleated Red 0.4 H Blood Cells % Immature 0.260 H Granulocytes # Neutrophils # 30.1 H Lymphocytes # 1.7 Monocytes # 0.5 Eosinophils # 0.2 Basophils # 0.1 Nucleated Red 0.1 H Blood Cells # Sodium Level 148 H Potassium Level 4.2 Chloride Level 116 H Carbon Dioxide 29 Level Anion Gap 3 L Blood Urea 59 H Nitrogen Creatinine 1.57 H Est Glomerular Filtrat Rate mL/min Glucose Level 176 Calcium Level 7.1 L Phosphorus Level 2.9 Magnesium Level 2.1 Total Bilirubin 0.4 Direct Bilirubin 0.00 Indirect 0.4 Bilirubin Aspartate Amino 22 Transf (AST/SGOT) Alanine 32 Aminotransferase (ALT/SGPT) Alkaline 107 Phosphatase Total Protein 4.3 L Albumin 1.9 L Globulin 2.40 Albumin/Globulin 0.79 Ratio Blood Gas Blood arterial Specimen Source Arterial Blood 02/07/2019 8:00:1 Date Drawn 8 AM Arterial Blood pH 7.485 H (Temp corrected) Arterial Blood 38.2 pCO2 (Temp correct) Arterial Blood 73.4 L pO2 (Temp corrected) Arterial Blood 28.1 H HCO3 Arterial Blood 4.4 H Base Excess Arterial Blood 94.9 L Oxygen Saturation Manuel Test ACCEPTAB Arterial Blood Right Radial Gas Puncture Site Arterial 1.0 Blood Carboxyhemo globin Arterial Blood 0.6 Methemoglobin Blood Gas A-a O2 73.9 H Differential Oxyhemoglobin 93.4 Percent Blood Gas 37.0 Temperature Blood Gas NASAL CANNULA Modality FiO2 27.0 Blood Gas MDA Notified Whom Blood Gas 02/07/2019 8:07:5 Notified Time 5 AM Bedside Glucose 201 Medications Medication Current Medications Lactulose (Enulose) 20 gm DAILY PRN PO CONSTIPATION; Start 01/17/19 at 18:17 Acetaminophen (Tylenol Tab) 650 mg Q4H PRN PO PAIN Last administered on 01/23/19 22:48; Admin Dose 650 MG; Start 01/17/19 at 18:17 Miscellaneous Information ([facility] This patient ramirez... PRN PRN XX WOUND CARE; Start 01/17/19 at 18:17 Albuterol/ Ipratropium (Duoneb) 3 ml Q2H RESP THERAPY PRN HHN SHORTNESS OF BREATH Last administered on 02/07/19at 05:45; Admin Dose 3 ML; Start 01/17/19 at 18:17 Bisacodyl (Dulcolax) 10 mg BID PRN PO CONSTIPATION; Start 01/17/19 at 18:17; Status Hold Folic Acid (Folic Acid) 1 mg DAILY PO Last administered on 02/07/19at 08:22; Admin Dose 1 MG; Start 01/17/19 at 18:17 Latanoprost (Xalatan) 1 drop HS BOTH EYES Last administered on 02/06/19at 20:48; Admin Dose 1 DROP; Start 01/17/19 at 18:17 Nitroglycerin (Nitroglycerin (Sl Tab) 0.4 Mg) 0.4 tab Q5M PRN SL CHEST PAIN; Start 01/17/19 at 18:17 Nystatin (Nystatin Powder) 1 applic BID TOP Last administered on 02/07/19at 08:24; Admin Dose 1 APPLIC; Start 01/17/19 at 18:17 IV Flush (NS 3 ml) 3 ml PER PROTOCOL IV ; Start 01/17/19 at 18:17 Miscellaneous Information 1 ea NOTE XX ; Start 01/17/19 at 18:17 Glucose (Glutose) 15 gm Q15M PRN PO DECREASED GLUCOSE; Start 01/17/19 at 18:17 Glucose (Glutose) 22.5 gm Q15M PRN PO DECREASED GLUCOSE; Start 01/17/19 at 18:17 Dextrose (D50w Syringe) 25 ml Q15M PRN IV DECREASED GLUCOSE Last administered on 02/05/19at 09:50; Admin Dose 25 ML; Start 01/17/19 at 18:17 Dextrose (D50w Syringe) 50 ml Q15M PRN IV DECREASED GLUCOSE; Start 01/17/19 at 18:17 Glucagon (Glucagen) 1 mg Q15M PRN IM DECREASED GLUCOSE; Start 01/17/19 at 18:17 Glucose (Glutose) 15 gm Q15M PRN BUCCAL DECREASED GLUCOSE; Start 01/17/19 at 18:17 Zinc Sulfate (Zinc Sulfate) 220 mg DAILY PO Last administered on 02/07/19 08:22; Admin Dose 220 MG; Start 01/17/19 at 18:17 Ascorbic Acid (Vitamin C) 250 mg DAILY PO Last administered on 02/07/19at 08:22; Admin Dose 250 MG; Start 01/17/19 at 18:17 Bisacodyl (Dulcolax Supp) 10 mg DAILY PRN [place] CONSTIPATION; Start 01/17/19 at 18:17 Zinc Acetate/ Diphenhydramine (Benadryl 2% Cr) 1 applic Q6H PRN TOP ITCHING Last administered on 01/26/19at 07:54; Admin Dose 1 APPLIC; Start 01/19/19 at 16:37 IV Flush (NS 10 ml) 10 ml PRN PRN IV IV PROTOCOL; Start 01/20/19 at 14:30 Cyanocobalamin (Vitamin B12 Inj) 1,000 mcg Q7D IM Last administered on at 08:14; Admin Dose 1,000 MCG; Start 02/03/19 at 09:00 Metoprolol Tartrate (Lopressor) 5 mg Q4H PRN IV HR>110 Hold SBP<100; Start 01/26/19 at 14:30 Vancomycin HCl (Vanco Iv Per Pharmacy) VANCOMYCIN PER PHARMACY PER PROTOCOL XX ; Start 01/27/19 at 12:00 Enoxaparin Sodium (Lovenox) 60 mg DAILY SC Last administered on 02/03/19at 08:06; Admin Dose 60 MG; Start 01/28/19 at 09:00; Status Hold Lorazepam (Ativan) 1 mg Q2 PRN IV SEIZURES Last administered on 02/02/19at 09:18; Admin Dose 1 MG; Start 01/27/19 at 14:00 Atorvastatin Calcium (Lipitor) 40 mg QHS NGT Last administered on 02/06/19 20:50; Admin Dose 40 MG; Start 01/28/19 at 21:00 Docusate Sodium (Colace Liquid Cup) 100 mg BID NGT ; Start 01/27/19 at 22:00; Status Hold Terazosin HCl (Hytrin) 10 mg HS NGT Last administered on 02/06/19 20:50; Admin Dose 10 MG; Start 01/28/19 at 21:00 Levetiracetam 100 ml @ 400 mls/hr Q12 IVPB Last administered on 02/07/19 08:21; Admin Dose 400 MLS/HR; Start 01/28/19 at 09:00 Levothyroxine Sodium (Synthroid) 125 mcg BEFORE BREAKFAST NGT Last administered on 02/07/19 06:11; Admin Dose 125 MCG; Start 01/28/19 at 07:00 Ferrous Sulfate (Feosol Liquid Cup) 300 mg WITH MEALS GTB Last administered on 02/07/19 07:43; Admin Dose 300 MG; Start 01/28/19 at 11:30 Multivitamins (Multivitamin) 30 ml DAILY GTB Last administered on 02/07/19 08:22; Admin Dose 30 ML; Start 01/28/19 at 11:00 Diagnostic Test (Pha) (Accu-Chek) 1 ea Q4 XX Last administered on 02/07/19 09:00; Admin Dose 1 EA; Start 01/28/19 at 13:00 Nystatin/ Triamcinolone Acetonide (Mycolog Oint) 1 applic BID TOP Last administered on 02/07/19 08:24; Admin Dose 1 APPLIC; Start 01/28/19 at 22:30 Insulin Aspart (Novolog Insulin Pen) NOVOLOG *MILD* ALGORI... Q4 SC Last administered on 02/07/19 10:05; Admin Dose 2 UNIT; Start 01/29/19 at 05:00 Albuterol/ Ipratropium (Duoneb) 3 ml Q6HWA RESP THERAPY HHN Last administered on 02/06/19 20:26; Admin Dose 3 ML; Start 01/29/19 at 14:00 Epoetin Dae-epbx (RETACRIT(non-esrd)) 40,000 unit Mo@1700 SC Last administered on 02/03/19 18:12; Admin Dose 40,000 UNIT; Start 02/03/19 at 17:00 Mupirocin (Bactroban) 1 applic BID TOP Last administered on 02/07/19 08:25; Admin Dose 1 APPLIC; Start 01/30/19 at 15:26; Stop 02/09/19 at 15:25 Tobramycin Sulfate/Sodium Chloride (Nilesh Inhal) 300 mg BID RESP THERAPY NEB Last administered on 02/07/19 08:29; Admin Dose 300 MG; Start 01/30/19 at 20:00 Insulin Glargine (Lantus) 10 units DAILY@2000 SC Last administered on 02/06/19 20:58; Admin Dose 10 UNITS; Start 01/31/19 at 20:00 Aztreonam 1 gm/ Dextrose 50 ml @ 100 mls/hr Q12 IVPB Last administered on 02/07/19 11:36; Admin Dose 100 MLS/HR; Start 02/03/19 at 21:00 Vancomycin HCl 750 mg/Dextrose 250 ml @ 125 mls/hr Q48H IVPB Last administered on 02/06/19 23:16; Admin Dose 125 MLS/HR; Start 02/04/19 at 23:00 Metoprolol Tartrate (Lopressor) 12.5 mg BID PO Last administered on 02/07/19 08:22; Admin Dose 12.5 MG; Start 02/05/19 at 21:00 Eye Lubricant (Refresh Plus) 1 drop QID BOTH EYES Last administered on 02/07/19 08:21; Admin Dose 1 DROP; Start 02/06/19 at 09:00 Eye Lubricant (Akwa Oint) 1 applic HS LEFT EYE Last administered on 02/06/19 22:38; Admin Dose 1 APPLIC; Start 02/06/19 at 21:00 Dextrose 1,000 ml @ 50 mls/hr Q20H IV Last administered on 02/06/19 23:17; Admin Dose 50 MLS/HR; Start 02/06/19 at 13:30 Potassium Chloride (Potassium Chloride Pwd/Soln) 20 meq BID NGT Last administered on 02/07/19 08:22; Admin Dose 20 MEQ; Start 02/06/19 at 21:00 Multi-Ingredient Ointment (Aquaphor Oint 52.5 Gm) 1 applic BID TOP Last administered on 02/07/19at 08:25; Admin Dose 1 APPLIC; Start 02/06/19 at 22:40 Lansoprazole (Prevacid) 30 mg BID@0600,1800 NGT ; Start 02/07/19 at 18:00 LUCIAN HARKINS NP February 07, 2019 13:12
--- NOTE | 2019-02-07 13:20 | CONS ---
Assessment/Plan Assessment/Plan Hospital Course (Demo Recall) IMPRESSION: 1. Atrial fibrillation, currently rate controlled.-off systemic anticoagulation due to anemia. ON asa only due to anemia 2. Possible congestive heart failure by chest x-ray, which will be diastolic, acute on chronic by most recent echo with an EF of 60%. 3. Tricuspid regurgitation, moderate by most recent echo. 4. Acute on chronic renal failure-mild worsening 5. Possible pneumonia. 6. History of coronary artery disease, status post coronary artery bypass graft surgery. 7. Dyslipidemia. 8. Rheumatoid arthritis. 9. Groin cellulitis. 10. Anemia-worsening again today requiring transfusions PRBC's.Now post-op s/p endoscopy 11. Diabetes mellitus. 12. Sepsis/leukocytosis 14. abdominal mass 15. Rash-all over body with skin chaffing at this time, probable drug reaction 16. Encephalopathy-ongoing. MRI negative for acute CVA Recc: -Now back on tele -serial ecg's -Lasix currently held per renal -Continue statin -Currently off abx's/antifungals, f/u cx data -Ongoing GI eval of abd mass -ongoing derm eval of rash and continue topical treatment -Lovenox held in the setting of GIB/worsening anemia, ? ability to resume low dose asa -Continue low dose BB with well controlled HR's Consultation Date/Type/Reason Admit Date/Time Jan 17, 2019 at 15:58 Initial Consult Date 01/18/19 Type of Consult Cardiology Reason for Consultation CHF Requesting Provider: IVAN AKHTAR MD Date/Time of Note DATE: 02/07/19 TIME: 13:18 Exam/Review of Systems Vital Signs Vitals Vital Signs Date Temp Pulse Resp B/P (MAP) Pulse Ox O2 O2 Flow FiO2 Time Delivery Rate 02/07/19 81 12:09 02/07/19 98.3 20 115/63 97 Nasal 11:16 (80) Cannula 02/07/19 2.0 08:30 02/04/19 70 14:45 Intake and Output 02/06/19 02/06/19 02/07/19 1414:59 22:59 06:59 IntakeIntake Total 350 ml 100 ml 1720 ml OutputOutput Total 650 ml BalanceBalance 350 ml 100 ml 1070 ml Exam Exam Review of Systems: CONSTITUTIONAL: No fevers, chills. PULMONARY: No sob CARDIOVASCULAR: No chest pain/palpitations GASTROINTESTINAL: No nausea/vomiting. GENITOURINARY: No hematuria/dysuria. MUSCULOSKELETAL: No myagias/arthalgias. PSYCHIATRIC: The patient denies depression. NEUROLOGIC: No weakness Constitutional: alert Psych: no complaints Head: normocephalic ENMT: mucosa pink and moist Neck: supple, jvd (9 cm water) Respiratory: diminished breath sounds (at bases/B) Cardiovascular: regular rate and rhythm Gastrointestinal: soft, non-tender Musculoskeletal: muscle tone (normal) Extremities: edema (none) Neurological: other (No focal deficits) Labs Result Diagram: 02/07/19 0553 02/07/19 0553 Results 24hrs Laboratory Tests Test 02/06/19 18:03 02/06/19 20:41 02/07/19 01:31 02/07/19 05:33 Bedside Glucose 208 235 H 216 185 Test 02/07/19 05:53 02/07/19 07:30 02/07/19 08:47 02/07/19 13:17 White Blood Count 32.8 #H Red Blood Count 2.66 L Hemoglobin 7.7 L Hematocrit 24.8 L Mean Corpuscular 93.2 Volume Mean Corpuscular 28.9 L Hemoglobin Mean Corpuscular 31.0 L Hemoglobin Concen t Red Cell 21.1 H Distribution Width Platelet Count 124 L Mean Platelet 13.2 H Volume Immature 0.800 H Granulocytes % Neutrophils % 91.7 H Lymphocytes % 5.2 L Monocytes % 1.5 Eosinophils % 0.6 Basophils % 0.2 Nucleated Red 0.4 H Blood Cells % Immature 0.260 H Granulocytes # Neutrophils # 30.1 H Lymphocytes # 1.7 Monocytes # 0.5 Eosinophils # 0.2 Basophils # 0.1 Nucleated Red 0.1 H Blood Cells # Sodium Level 148 H Potassium Level 4.2 Chloride Level 116 H Carbon Dioxide 29 Level Anion Gap 3 L Blood Urea 59 H Nitrogen Creatinine 1.57 H Est Glomerular Filtrat Rate mL/min Glucose Level 176 Calcium Level 7.1 L Phosphorus Level 2.9 Magnesium Level 2.1 Total Bilirubin 0.4 Direct Bilirubin 0.00 Indirect 0.4 Bilirubin Aspartate Amino 22 Transf (AST/SGOT) Alanine 32 Aminotransferase (ALT/SGPT) Alkaline 107 Phosphatase Total Protein 4.3 L Albumin 1.9 L Globulin 2.40 Albumin/Globulin 0.79 Ratio Blood Gas Blood arterial Specimen Source Arterial Blood 02/07/2019 8:00:1 Date Drawn 8 AM Arterial Blood pH 7.485 H (Temp corrected) Arterial Blood 38.2 pCO2 (Temp correct) Arterial Blood 73.4 L pO2 (Temp corrected) Arterial Blood 28.1 H HCO3 Arterial Blood 4.4 H Base Excess Arterial Blood 94.9 L Oxygen Saturation Manuel Test ACCEPTAB Arterial Blood Right Radial Gas Puncture Site Arterial 1.0 Blood Carboxyhemo globin Arterial Blood 0.6 Methemoglobin Blood Gas A-a O2 73.9 H Differential Oxyhemoglobin 93.4 Percent Blood Gas 37.0 Temperature Blood Gas NASAL CANNULA Modality FiO2 27.0 Blood Gas MDA Notified Whom Blood Gas 02/07/2019 8:07:5 Notified Time 5 AM Bedside Glucose 201 209 Medications Medications Current Medications Lactulose (Enulose) 20 gm DAILY PRN PO CONSTIPATION; Start 01/17/19 at 18:17 Acetaminophen (Tylenol Tab) 650 mg Q4H PRN PO PAIN Last administered on 01/23/19 22:48; Admin Dose 650 MG; Start 01/17/19 at 18:17 Miscellaneous Information (Pending [facility] Order For Wound Care) This patient ramirez... PRN PRN XX WOUND CARE; Start 01/17/19 at 18:17 Albuterol/ Ipratropium (Duoneb) 3 ml Q2H RESP THERAPY PRN HHN SHORTNESS OF BREATH Last administered on 02/07/19 05:45; Admin Dose 3 ML; Start 01/17/19 at 18:17 Bisacodyl (Dulcolax) 10 mg BID PRN PO CONSTIPATION; Start 01/17/19 at 18:17; Status Hold Folic Acid (Folic Acid) 1 mg DAILY PO Last administered on 02/07/19 08:22; Admin Dose 1 MG; Start 01/17/19 at 18:17 Latanoprost (Xalatan) 1 drop HS BOTH EYES Last administered on 02/06/19at 20:48; Admin Dose 1 DROP; Start 01/17/19 at 18:17 Nitroglycerin (Nitroglycerin (Sl Tab) 0.4 Mg) 0.4 tab Q5M PRN SL CHEST PAIN; Start 01/17/19 at 18:17 Nystatin (Nystatin Powder) 1 applic BID TOP Last administered on 5/17/19at 08:24; Admin Dose 1 APPLIC; Start 01/17/19 at 18:17 IV Flush (NS 3 ml) 3 ml PER PROTOCOL IV ; Start 01/17/19 at 18:17 Miscellaneous Information 1 ea NOTE XX ; Start 01/17/19 at 18:17 Glucose (Glutose) 15 gm Q15M PRN PO DECREASED GLUCOSE; Start 01/17/19 at 18:17 Glucose (Glutose) 22.5 gm Q15M PRN PO DECREASED GLUCOSE; Start 01/17/19 at 18:17 Dextrose (D50w Syringe) 25 ml Q15M PRN IV DECREASED GLUCOSE Last administered on 02/05/19at 09:50; Admin Dose 25 ML; Start 01/17/19 at 18:17 Dextrose (D50w Syringe) 50 ml Q15M PRN IV DECREASED GLUCOSE; Start 01/17/19 at 18:17 Glucagon (Glucagen) 1 mg Q15M PRN IM DECREASED GLUCOSE; Start 01/17/19 at 18:17 Glucose (Glutose) 15 gm Q15M PRN BUCCAL DECREASED GLUCOSE; Start 01/17/19 at 18:17 Zinc Sulfate (Zinc Sulfate) 220 mg DAILY PO Last administered on 02/07/19at 08:22; Admin Dose 220 MG; Start 01/17/19 at 18:17 Ascorbic Acid (Vitamin C) 250 mg DAILY PO Last administered on 02/07/19at 08:22; Admin Dose 250 MG; Start 01/17/19 at 18:17 Bisacodyl (Dulcolax Supp) 10 mg DAILY PRN [place] CONSTIPATION; Start 01/17/19 at 18:17 Zinc Acetate/ Diphenhydramine (Benadryl 2% Cr) 1 applic Q6H PRN TOP ITCHING Last administered on 01/26/19at 07:54; Admin Dose 1 APPLIC; Start 01/19/19 at 16:37 IV Flush (NS 10 ml) 10 ml PRN PRN IV IV PROTOCOL; Start 01/20/19 at 14:30 Cyanocobalamin (Vitamin B12 Inj) 1,000 mcg Q7D IM Last administered on 02/03/19at 08:14; Admin Dose 1,000 MCG; Start 02/03/19 at 09:00 Metoprolol Tartrate (Lopressor) 5 mg Q4H PRN IV HR>110 Hold SBP<100; Start 01/26/19 at 14:30 Vancomycin HCl (Vanco Iv Per Pharmacy) VANCOMYCIN PER PHARMACY PER PROTOCOL XX ; Start 01/27/19 at 12:00 Enoxaparin Sodium (Lovenox) 60 mg DAILY SC Last administered on 02/03/19 08:06; Admin Dose 60 MG; Start 01/28/19 at 09:00; Status Hold Lorazepam (Ativan) 1 mg Q2 PRN IV SEIZURES Last administered on 02/02/19 09:18; Admin Dose 1 MG; Start 01/27/19 at 14:00 Atorvastatin Calcium (Lipitor) 40 mg QHS NGT Last administered on 02/06/19 20:50; Admin Dose 40 MG; Start 01/28/19 at 21:00 Docusate Sodium (Colace Liquid Cup) 100 mg BID NGT ; Start 01/27/19 at 22:00; Status Hold Terazosin HCl (Hytrin) 10 mg HS NGT Last administered on 02/06/19 20:50; Admin Dose 10 MG; Start 01/28/19 at 21:00 Levetiracetam 100 ml @ 400 mls/hr Q12 IVPB Last administered on 02/07/19 08:21; Admin Dose 400 MLS/HR; Start 01/28/19 at 09:00 Levothyroxine Sodium (Synthroid) 125 mcg BEFORE BREAKFAST NGT Last administered on 02/07/19 06:11; Admin Dose 125 MCG; Start 01/28/19 at 07:00 Ferrous Sulfate (Feosol Liquid Cup) 300 mg WITH MEALS GTB Last administered on 02/07/19 07:43; Admin Dose 300 MG; Start 01/28/19 at 11:30 Multivitamins (Multivitamin) 30 ml DAILY GTB Last administered on 02/07/19 08:22; Admin Dose 30 ML; Start 01/28/19 at 11:00 Diagnostic Test (Pha) (Accu-Chek) 1 ea Q4 XX Last administered on 02/07/19 09:00; Admin Dose 1 EA; Start 01/28/19 at 13:00 Nystatin/ Triamcinolone Acetonide (Mycolog Oint) 1 applic BID TOP Last ad ministered on 02/07/19 08:24; Admin Dose 1 APPLIC; Start 01/28/19 at 22:30 Insulin Aspart (Novolog Insulin Pen) NOVOLOG *MILD* ALGORI... Q4 SC Last administered on 02/07/19 10:05; Admin Dose 2 UNIT; Start 01/29/19 at 05:00 Albuterol/ Ipratropium (Duoneb) 3 ml Q6HWA RESP THERAPY HHN Last administered on 02/06/19 20:26; Admin Dose 3 ML; Start 01/29/19 at 14:00 Epoetin Dae-epbx (RETACRIT(non-esrd)) 40,000 unit Mo@1700 SC Last administered on 02/03/19 18:12; Admin Dose 40,000 UNIT; Start 02/03/19 at 17:00 Mupirocin (Bactroban) 1 applic BID TOP Last administered on 02/07/19 08:25; Admin Dose 1 APPLIC; Start 01/30/19 at 15:26; Stop 02/09/19 at 15:25 Tobramycin Sulfate/Sodium Chloride (Nilesh Inhal) 300 mg BID RESP THERAPY NEB Last administered on 02/07/19 08:29; Admin Dose 300 MG; Start 01/30/19 at 20:00 Insulin Glargine (Lantus) 10 units DAILY@2000 SC Last administered on 02/06/19 20:58; Admin Dose 10 UNITS; Start 01/31/19 at 20:00 Aztreonam 1 gm/ Dextrose 50 ml @ 100 mls/hr Q12 IVPB Last administered on 02/07/19 11:36; Admin Dose 100 MLS/HR; Start 02/03/19 at 21:00 Vancomycin HCl 750 mg/Dextrose 250 ml @ 125 mls/hr Q48H IVPB Last administered on 02/06/19 23:16; Admin Dose 125 MLS/HR; Start 02/04/19 at 23:00 Metoprolol Tartrate (Lopressor) 12.5 mg BID PO Last administered on 02/07/19 08:22; Admin Dose 12.5 MG; Start 02/05/19 at 21:00 Eye Lubricant (Refresh Plus) 1 drop QID BOTH EYES Last administered on 02/07/19 08:21; Admin Dose 1 DROP; Start 02/06/19 at 09:00 Eye Lubricant (Akwa Oint) 1 applic HS LEFT EYE Last administered on 02/06/19at 22:38; Admin Dose 1 APPLIC; Start 02/06/19 at 21:00 Dextrose 1,000 ml @ 50 mls/hr Q20H IV Last administered on 02/06/19at 23:17; Admin Dose 50 MLS/HR; Start 02/06/19 at 13:30 Potassium Chloride (Potassium Chloride Pwd/Soln) 20 meq BID NGT Last administered on 02/07/19at 08:22; Admin Dose 20 MEQ; Start 02/06/19 at 21:00 Multi-Ingredient Ointment (Aquaphor Oint 52.5 Gm) 1 applic BID TOP Last administered on 02/07/19 08:25; Admin Dose 1 APPLIC; Start 02/06/19 at 22:40 Lansoprazole (Prevacid) 30 mg BID@0600,1800 NGT ; Start 02/07/19 at 18:00 MARJORIE JAIN February 07, 2019 13:20
--- NOTE | 2019-02-07 13:35 | PN ---
Date/Time of Note Date/Time of Note DATE: 02/07/19 TIME: 13:31 Assessment/Plan VTE Prophylaxis Risk score (from [facility])>0 risk: 11 SCD applied (from [facility]): No SCD contraindicated: bilateral LE trauma Pharmacological prophylaxis: NA/contraindicated Pharm contraindication: anticoag not tolerated Lines/Catheters IV [facility] Type (from [facility] Central Line Central line still needed: Yes Urinary Cath still in place: Yes Reason Cath still needed: urinary retention Assessment/Plan Hospital Course 1. Sepsis, WBC rising , lactic acidosis. LActic acid recently 2.5 2. Severe anemia 3. Chronic renal failure likely secondary to sepsis 4. Hypertension. 5. Hyperlipidemia. 6. Hypothyroidism. 7. Normocytic normochromic chronic anemia with recent hemoglobin drop. 8. Bilateral groin cellulitis more likely associated with mateus, patches in groin and axilla bilaterally. skin peeling 9. History of rheumatoid arthritis with joint deformities. 10. Diabetes type 2. 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 Peripheral vascular disease. 13. Chronic a.fib 14. right arm edema, better 15. Neoplasm per CT abdomen. 4.3 cm cystic lesion along the pancreas body, enlarged since 10/10/2012 (previously 2.4 cm). 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 16. Possible allergic skin reaction, biopsy is obtained 17. altered mental status delirium vs stroke, resolved 18. Hypernatremia 156 from 152 19. Eye muscle paralysis. Assessment/Plan - GI consult - aug d5 w to 50 improved today to 148 from 151 - cw [employer] 60 cc/hr, -fu speech recs - cw aztreonam/vanco/flagyl/tobra -cw keppra - fu Neuro recs and neuro checks ? LP was refused by family - GI proph. IV PPI -DVT prophylaxis unable to tolerate -skin care - s/p skin biopsy pending results solar elastosis > will kemar derm input - ophthalmology, Dr Montiel saw pt -poor prognosis Result Diagram: 02/07/19 0553 02/07/19 0553 Results 24hrs Laboratory Tests Test 02/06/19 18:03 02/06/19 20:41 02/07/19 01:31 02/07/19 05:33 Bedside Glucose 208 235 H 216 185 Test 02/07/19 05:53 02/07/19 07:30 02/07/19 08:47 02/07/19 13:17 White Blood Count 32.8 #H Red Blood Count 2.66 L Hemoglobin 7.7 L Hematocrit 24.8 L Mean Corpuscular 93.2 Volume Mean Corpuscular 28.9 L Hemoglobin Mean Corpuscular 31.0 L Hemoglobin Concen t Red Cell 21.1 H Distribution Width Platelet Count 124 L Mean Platelet 13.2 H Volume Immature 0.800 H Granulocytes % Neutrophils % 91.7 H Lymphocytes % 5.2 L Monocytes % 1.5 Eosinophils % 0.6 Basophils % 0.2 Nucleated Red 0.4 H Blood Cells % Immature 0.260 H Granulocytes # Neutrophils # 30.1 H Lymphocytes # 1.7 Monocytes # 0.5 Eosinophils # 0.2 Basophils # 0.1 Nucleated Red 0.1 H Blood Cells # Sodium Level 148 H Potassium Level 4.2 Chloride Level 116 H Carbon Dioxide 29 Level Anion Gap 3 L Blood Urea 59 H Nitrogen Creatinine 1.57 H Est Glomerular Filtrat Rate mL/min Glucose Level 176 Calcium Level 7.1 L Phosphorus Level 2.9 Magnesium Level 2.1 Total Bilirubin 0.4 Direct Bilirubin 0.00 Indirect 0.4 Bilirubin Aspartate Amino 22 Transf (AST/SGOT) Alanine 32 Aminotransferase (ALT/SGPT) Alkaline 107 Phosphatase Total Protein 4.3 L Albumin 1.9 L Globulin 2.40 Albumin/Globulin 0.79 Ratio Blood Gas Blood arterial Specimen Source Arterial Blood 02/07/2019 8:00:1 Date Drawn 8 AM Arterial Blood pH 7.485 H (Temp corrected) Arterial Blood 38.2 pCO2 (Temp correct) Arterial Blood 73.4 L pO2 (Temp corrected) Arterial Blood 28.1 H HCO3 Arterial Blood 4.4 H Base Excess Arterial Blood 94.9 L Oxygen Saturation Manuel Test ACCEPTAB Arterial Blood Right Radial Gas Puncture Site Arterial 1.0 Blood Carboxyhemo globin Arterial Blood 0.6 Methemoglobin Blood Gas A-a O2 73.9 H Differential Oxyhemoglobin 93.4 Percent Blood Gas 37.0 Temperature Blood Gas NASAL CANNULA Modality FiO2 27.0 Blood Gas MDA Notified Whom Blood Gas 02/07/2019 8:07:5 Notified Time 5 AM Bedside Glucose 201 209 Subjective 24 Hr Interval Summary Subjective hx not possible: pt non-verbal Exam/Review of Systems Exam Vitals Vital Signs Date Temp Pulse Resp B/P (MAP) Pulse Ox O2 O2 Flow FiO2 Time Delivery Rate 02/07/19 81 12:09 02/07/19 98.3 20 115/63 97 Nasal 11:16 (80) Cannula 02/07/19 2.0 08:30 02/04/19 70 14:45 Intake and Output 02/06/19 02/06/19 02/07/19 1414:59 22:59 06:59 IntakeIntake Total 350 ml 100 ml 1720 ml OutputOutput Total 650 ml BalanceBalance 350 ml 100 ml 1070 ml Exam NG tube Constitutional: alert, frail Head: normocephalic Neck: supple Cardiovascular: regular rate and rhythm Gastrointestinal: soft Results Results 24hrs Laboratory Tests Test 02/06/19 18:03 02/06/19 20:41 02/07/19 01:31 02/07/19 05:33 Bedside Glucose 208 235 H 216 185 Test 02/07/19 05:53 02/07/19 07:30 02/07/19 08:47 02/07/19 13:17 White Blood Count 32.8 #H Red Blood Count 2.66 L Hemoglobin 7.7 L Hematocrit 24.8 L Mean Corpuscular 93.2 Volume Mean Corpuscular 28.9 L Hemoglobin Mean Corpuscular 31.0 L Hemoglobin Concen t Red Cell 21.1 H Distribution Width Platelet Count 124 L Mean Platelet 13.2 H Volume Immature 0.800 H Granulocytes % Neutrophils % 91.7 H Lymphocytes % 5.2 L Monocytes % 1.5 Eosinophils % 0.6 Basophils % 0.2 Nucleated Red 0.4 H Blood Cells % Immature 0.260 H Granulocytes # Neutrophils # 30.1 H Lymphocytes # 1.7 Monocytes # 0.5 Eosinophils # 0.2 Basophils # 0.1 Nucleated Red 0.1 H Blood Cells # Sodium Level 148 H Potassium Level 4.2 Chloride Level 116 H Carbon Dioxide 29 Level Anion Gap 3 L Blood Urea 59 H Nitrogen Creatinine 1.57 H Est Glomerular Filtrat Rate mL/min Glucose Level 176 Calcium Level 7.1 L Phosphorus Level 2.9 Magnesium Level 2.1 Total Bilirubin 0.4 Direct Bilirubin 0.00 Indirect 0.4 Bilirubin Aspartate Amino 22 Transf (AST/SGOT) Alanine 32 Aminotransferase (ALT/SGPT) Alkaline 107 Phosphatase Total Protein 4.3 L Albumin 1.9 L Globulin 2.40 Albumin/Globulin 0.79 Ratio Blood Gas Blood arterial Specimen Source Arterial Blood 02/07/2019 8:00:1 Date Drawn 8 AM Arterial Blood pH 7.485 H (Temp corrected) Arterial Blood 38.2 pCO2 (Temp correct) Arterial Blood 73.4 L pO2 (Temp corrected) Arterial Blood 28.1 H HCO3 Arterial Blood 4.4 H Base Excess Arterial Blood 94.9 L Oxygen Saturation Manuel Test ACCEPTAB Arterial Blood Right Radial Gas Puncture Site Arterial 1.0 Blood Carboxyhemo globin Arterial Blood 0.6 Methemoglobin Blood Gas A-a O2 73.9 H Differential Oxyhemoglobin 93.4 Percent Blood Gas 37.0 Temperature Blood Gas NASAL CANNULA Modality FiO2 27.0 Blood Gas MDA Notified Whom Blood Gas 02/07/2019 8:07:5 Notified Time 5 AM Bedside Glucose 201 209 Medications Medication Current Medications Lactulose (Enulose) 20 gm DAILY PRN PO CONSTIPATION; Start 01/17/19 at 18:17 Acetaminophen (Tylenol Tab) 650 mg Q4H PRN PO PAIN Last administered on 01/23/19 22:48; Admin Dose 650 MG; Start 01/17/19 at 18:17 Misc[facility] This patient ramirez... PRN PRN XX WOUND CARE; Start 01/17/19 at 18:17 Albuterol/ Ipratropium (Duoneb) 3 ml Q2H RESP THERAPY PRN HHN SHORTNESS OF BREATH Last administered on 02/07/19at 05:45; Admin Dose 3 ML; Start 01/17/19 at 18:17 Bisacodyl (Dulcolax) 10 mg BID PRN PO CONSTIPATION; Start 01/17/19 at 18:17; Status Hold Folic Acid (Folic Acid) 1 mg DAILY PO Last administered on 02/07/19 08:22; Admin Dose 1 MG; Start 01/17/19 at 18:17 Latanoprost (Xalatan) 1 drop HS BOTH EYES Last administered on 02/06/19at 20:48; Admin Dose 1 DROP; Start 01/17/19 at 18:17 Nitroglycerin (Nitroglycerin (Sl Tab) 0.4 Mg) 0.4 tab Q5M PRN SL CHEST PAIN; Start 01/17/19 at 18:17 Nystatin (Nystatin Powder) 1 applic BID TOP Last administered on 02/07/19at 08:24; Admin Dose 1 APPLIC; Start 01/17/19 at 18:17 IV Flush (NS 3 ml) 3 ml PER PROTOCOL IV ; Start 01/17/19 at 18:17 Miscellaneous Information 1 ea NOTE XX ; Start 01/17/19 at 18:17 Glucose (Glutose) 15 gm Q15M PRN PO DECREASED GLUCOSE; Start 01/17/19 at 18:17 Glucose (Glutose) 22.5 gm Q15M PRN PO DECREASED GLUCOSE; Start 01/17/19 at 18:17 Dextrose (D50w Syringe) 25 ml Q15M PRN IV DECREASED GLUCOSE Last administered on 02/05/19at 09:50; Admin Dose 25 ML; Start 01/17/19 at 18:17 Dextrose (D50w Syringe) 50 ml Q15M PRN IV DECREASED GLUCOSE; Start 01/17/19 at 18:17 Glucagon (Glucagen) 1 mg Q15M PRN IM DECREASED GLUCOSE; Start 01/17/19 at 18:17 Glucose (Glutose) 15 gm Q15M PRN BUCCAL DECREASED GLUCOSE; Start 01/17/19 at 18:17 Zinc Sulfate (Zinc Sulfate) 220 mg DAILY PO Last administered on 02/07/19at 08:22; Admin Dose 220 MG; Start 01/17/19 at 18:17 Ascorbic Acid (Vitamin C) 250 mg DAILY PO Last administered on 02/07/19at 08:22; Admin Dose 250 MG; Start 01/17/19 at 18:17 Bisacodyl (Dulcolax Supp) 10 mg DAILY PRN [place] CONSTIPATION; Start 01/17/19 at 18:17 Zinc Acetate/ Diphenhydramine (Benadryl 2% Cr) 1 applic Q6H PRN TOP ITCHING Last administered on 01/26/19at 07:54; Admin Dose 1 APPLIC; Start 01/19/19 at 16:37 IV Flush (NS 10 ml) 10 ml PRN PRN IV IV PROTOCOL; Start 01/20/19 at 14:30 Cyanocobalamin (Vitamin B12 Inj) 1,000 mcg Q7D IM Last administered on 02/03/19at 08:14; Admin Dose 1,000 MCG; Start 02/03/19 at 09:00 Metoprolol Tartrate (Lopressor) 5 mg Q4H PRN IV HR>110 Hold SBP<100; Start 01/26/19 at 14:30 Vancomycin HCl (Vanco Iv Per Pharmacy) VANCOMYCIN PER PHARMACY PER PROTOCOL XX ; Start 01/27/19 at 12:00 Enoxaparin Sodium (Lovenox) 60 mg DAILY SC Last administered on 02/03/19 08:06; Admin Dose 60 MG; Start 01/28/19 at 09:00; Status Hold Lorazepam (Ativan) 1 mg Q2 PRN IV SEIZURES Last administered on 02/02/19 09:18; Admin Dose 1 MG; Start 01/27/19 at 14:00 Atorvastatin Calcium (Lipitor) 40 mg QHS NGT Last administered on 02/06/19 20:50; Admin Dose 40 MG; Start 01/28/19 at 21:00 Docusate Sodium (Colace Liquid Cup) 100 mg BID NGT ; Start 01/27/19 at 22:00; Status Hold Terazosin HCl (Hytrin) 10 mg HS NGT Last administered on 02/06/19 20:50; Admin Dose 10 MG; Start 01/28/19 at 21:00 Levetiracetam 100 ml @ 400 mls/hr Q12 IVPB Last administered on 02/07/19 08:21; Admin Dose 400 MLS/HR; Start 01/28/19 at 09:00 Levothyroxine Sodium (Synthroid) 125 mcg BEFORE BREAKFAST NGT Last administered on 02/07/19 06:11; Admin Dose 125 MCG; Start 01/28/19 at 07:00 Ferrous Sulfate (Feosol Liquid Cup) 300 mg WITH MEALS GTB Last administered on 02/07/19 07:43; Admin Dose 300 MG; Start 01/28/19 at 11:30 Multivitamins (Multivitamin) 30 ml DAILY GTB Last administered on 02/07/19 08:22; Admin Dose 30 ML; Start 01/28/19 at 11:00 Diagnostic Test (Pha) (Accu-Chek) 1 ea Q4 XX Last administered on 02/07/19 09:00; Admin Dose 1 EA; Start 01/28/19 at 13:00 Nystatin/ Triamcinolone Acetonide (Mycolog Oint) 1 applic BID TOP Last administered on 02/07/19 08:24; Admin Dose 1 APPLIC; Start 01/28/19 at 22:30 Insulin Aspart (Novolog Insulin Pen) NOVOLOG *MILD* ALGORI... Q4 SC Last administered on 02/07/19 10:05; Admin Dose 2 UNIT; Start 01/29/19 at 05:00 Albuterol/ Ipratropium (Duoneb) 3 ml Q6HWA RESP THERAPY HHN Last administered on 02/06/19 20:26; Admin Dose 3 ML; Start 01/29/19 at 14:00 Epoetin Dae-epbx (RETACRIT(non-esrd)) 40,000 unit Mo@1700 SC Last administered on 02/03/19 18:12; Admin Dose 40,000 UNIT; Start 02/03/19 at 17:00 Mupirocin (Bactroban) 1 applic BID TOP Last administered on 02/07/19 08:25; Admin Dose 1 APPLIC; Start 01/30/19 at 15:26; Stop 02/09/19 at 15:25 Tobramycin Sulfate/Sodium Chloride (Nilesh Inhal) 300 mg BID RESP THERAPY NEB Last administered on 02/07/19 08:29; Admin Dose 300 MG; Start 01/30/19 at 20:00 Insulin Glargine (Lantus) 10 units DAILY@2000 SC Last administered on 02/06/19 20:58; Admin Dose 10 UNITS; Start 01/31/19 at 20:00 Aztreonam 1 gm/ Dextrose 50 ml @ 100 mls/hr Q12 IVPB Last administered on 02/07/19 11:36; Admin Dose 100 MLS/HR; Start 02/03/19 at 21:00 Vancomycin HCl 750 mg/Dextrose 250 ml @ 125 mls/hr Q48H IVPB Last administered on 02/06/19 23:16; Admin Dose 125 MLS/HR; Start 02/04/19 at 23:00 Metoprolol Tartrate (Lopressor) 12.5 mg BID PO Last administered on 02/07/19 08:22; Admin Dose 12.5 MG; Start 02/05/19 at 21:00 Eye Lubricant (Refresh Plus) 1 drop QID BOTH EYES Last administered on 02/07/19 t 08:21; Admin Dose 1 DROP; Start 02/06/19 at 09:00 Eye Lubricant (Akwa Oint) 1 applic HS LEFT EYE Last administered on 02/06/19at 22:38; Admin Dose 1 APPLIC; Start 02/06/19 at 21:00 Dextrose 1,000 ml @ 50 mls/hr Q20H IV Last administered on 02/06/19at 23:17; Admin Dose 50 MLS/HR; Start 02/06/19 at 13:30 Potassium Chloride (Potassium Chloride Pwd/Soln) 20 meq BID NGT Last administered on 02/07/19at 08:22; Admin Dose 20 MEQ; Start 02/06/19 at 21:00 Multi-Ingredient Ointment (Aquaphor Oint 52.5 Gm) 1 applic BID TOP Last administered on 02/07/19 08:25; Admin Dose 1 APPLIC; Start 02/06/19 at 22:40 Lansoprazole (Prevacid) 30 mg BID@0600,1800 NGT ; Start 02/07/19 at 18:00 COOPER CARO February 07, 2019 13:35
--- NOTE | 2019-02-07 14:23 | CONS ---
Consult Date/Type/Reason Admit Date/Time Jan 17, 2019 at 15:58 Initial Consult Date 01/18/19 Type of Consult Pulmonary Requesting Provider: IVAN AKHTAR MD Date/Time of Note DATE: 02/07/19 TIME: 14:22 Subjective Patient comfortable this morning no respiratory distress Objective Vital Signs Date Temp Pulse Resp B/P (MAP) Pulse Ox O2 O2 Flow FiO2 Time Delivery Rate 02/07/19 81 22 98 Nasal 2.0 13:40 Cannula 02/07/19 98.3 115/63 11:16 (80) 02/04/19 70 14:45 Intake and Output 02/06/19 02/06/19 02/07/19 1515:00 23:00 07:00 IntakeIntake Total 350 ml 100 ml 1720 ml OutputOutput Total 650 ml BalanceBalance 350 ml 100 ml 1070 ml Exam GENERAL: Frail elderly gentleman comfortable at rest on nasal cannula VITAL SIGNS: per chart NECK: Supple. No JVD or lymphadenopathy. CARDIAC EXAM: S1, S2. No added sounds or murmurs. CHEST: Diminished air entry both bases ABDOMEN: Soft, nontender. No guarding or rebound. EXTREMITIES: No cyanosis, clubbing edema +2 NEUROLOGIC: Generalized weakness. Vent Setting Ventilator Support Mode: AC Fraction of Inspired Oxygen pe: 70 Positive End Expiratory Pressu: 5.0 Results/Medications Result Diagram: 02/07/19 0553 02/07/19 0553 Results 24 hrs Laboratory Tests Test 02/06/19 18:03 02/06/19 20:41 02/07/19 01:31 02/07/19 05:33 Bedside Glucose 208 235 H 216 185 Test 02/07/19 05:53 02/07/19 07:30 02/07/19 08:47 02/07/19 13:17 White Blood Count 32.8 #H Red Blood Count 2.66 L Hemoglobin 7.7 L Hematocrit 24.8 L Mean Corpuscular 93.2 Volume Mean Corpuscular 28.9 L Hemoglobin Mean Corpuscular 31.0 L Hemoglobin Concen t Red Cell 21.1 H Distribution Width Platelet Count 124 L Mean Platelet 13.2 H Volume Immature 0.800 H Granulocytes % Neutrophils % 91.7 H Lymphocytes % 5.2 L Monocytes % 1.5 Eosinophils % 0.6 Basophils % 0.2 Nucleated Red 0.4 H Blood Cells % Immature 0.260 H Granulocytes # Neutrophils # 30.1 H Lymphocytes # 1.7 Monocytes # 0.5 Eosinophils # 0.2 Basophils # 0.1 Nucleated Red 0.1 H Blood Cells # Sodium Level 148 H Potassium Level 4.2 Chloride Level 116 H Carbon Dioxide 29 Level Anion Gap 3 L Blood Urea 59 H Nitrogen Creatinine 1.57 H Est Glomerular Filtrat Rate mL/min Glucose Level 176 Calcium Level 7.1 L Phosphorus Level 2.9 Magnesium Level 2.1 Total Bilirubin 0.4 Direct Bilirubin 0.00 Indirect 0.4 Bilirubin Aspartate Amino 22 Transf (AST/SGOT) Alanine 32 Aminotransferase (ALT/SGPT) Alkaline 107 Phosphatase Total Protein 4.3 L Albumin 1.9 L Globulin 2.40 Albumin/Globulin 0.79 Ratio Blood Gas Blood arterial Specimen Source Arterial Blood 02/07/2019 8:00:1 Date Drawn 8 AM Arterial Blood pH 7.485 H (Temp corrected) Arterial Blood 38.2 pCO2 (Temp correct) Arterial Blood 73.4 L pO2 (Temp corrected) Arterial Blood 28.1 H HCO3 Arterial Blood 4.4 H Base Excess Arterial Blood 94.9 L Oxygen Saturation Manuel Test ACCEPTAB Arterial Blood Right Radial Gas Puncture Site Arterial 1.0 Blood Carboxyhemo globin Arterial Blood 0.6 Methemoglobin Blood Gas A-a O2 73.9 H Differential Oxyhemoglobin 93.4 Percent Blood Gas 37.0 Temperature Blood Gas NASAL CANNULA Modality FiO2 27.0 Blood Gas MDA Notified Whom Blood Gas 02/07/2019 8:07:5 Notified Time 5 AM Bedside Glucose 201 209 Medications Current Medications Lactulose (Enulose) 20 gm DAILY PRN PO CONSTIPATION; Start 01/17/19 at 18:17 Acetaminophen (Tylenol Tab) 650 mg Q4H PRN PO PAIN Last administered on 01/23/19at 22:48; Admin Dose 650 MG; Start 01/17/19 at 18:17 [facility] This patient ramirez... PRN PRN XX WOUND CARE; Start 01/17/19 at 18:17 Albuterol/ Ipratropium (Duoneb) 3 ml Q2H RESP THERAPY PRN HHN SHORTNESS OF BREATH Last administered on 02/07/19at 05:45; Admin Dose 3 ML; Start 01/17/19 at 18:17 Bisacodyl (Dulcolax) 10 mg BID PRN PO CONSTIPATION; Start 01/17/19 at 18:17; Status Hold Folic Acid (Folic Acid) 1 mg DAILY PO Last administered on 02/07/19at 08:22; Admin Dose 1 MG; Start 01/17/19 at 18:17 Latanoprost (Xalatan) 1 drop HS BOTH EYES Last administered on 02/06/19at 20:48; Admin Dose 1 DROP; Start 01/17/19 at 18:17 Nitroglycerin (Nitroglycerin (Sl Tab) 0.4 Mg) 0.4 tab Q5M PRN SL CHEST PAIN; Start 01/17/19 at 18:17 Nystatin (Nystatin Powder) 1 applic BID TOP Last administered on 02/07/19at 0 8:24; Admin Dose 1 APPLIC; Start 01/17/19 at 18:17 IV Flush (NS 3 ml) 3 ml PER PROTOCOL IV ; Start 01/17/19 at 18:17 Miscellaneous Information 1 ea NOTE XX ; Start 01/17/19 at 18:17 Glucose (Glutose) 15 gm Q15M PRN PO DECREASED GLUCOSE; Start 01/17/19 at 18:17 Glucose (Glutose) 22.5 gm Q15M PRN PO DECREASED GLUCOSE; Start 01/17/19 at 18:17 Dextrose (D50w Syringe) 25 ml Q15M PRN IV DECREASED GLUCOSE Last administered on 02/05/19at 09:50; Admin Dose 25 ML; Start 01/17/19 at 18:17 Dextrose (D50w Syringe) 50 ml Q15M PRN IV DECREASED GLUCOSE; Start 01/17/19 at 18:17 Glucagon (Glucagen) 1 mg Q15M PRN IM DECREASED GLUCOSE; Start 01/17/19 at 18:17 Glucose (Glutose) 15 gm Q15M PRN BUCCAL DECREASED GLUCOSE; Start 01/17/19 at 18:17 Ascorbic Acid (Vitamin C) 250 mg DAILY PO Last administered on 02/07/19at 08:22; Admin Dose 250 MG; Start 01/17/19 at 18:17 Bisacodyl (Dulcolax Supp) 10 mg DAILY PRN [place] CONSTIPATION; Start 01/17/19 at 18:17 Zinc Acetate/ Diphenhydramine (Benadryl 2% Cr) 1 applic Q6H PRN TOP ITCHING Last administered on 01/26/19 07:54; Admin Dose 1 APPLIC; Start 01/19/19 at 16: 37 IV Flush (NS 10 ml) 10 ml PRN PRN IV IV PROTOCOL; Start 01/20/19 at 14:30 Cyanocobalamin (Vitamin B12 Inj) 1,000 mcg Q7D IM Last administered on 02/03/19 08:14; Admin Dose 1,000 MCG; Start 02/03/19 at 09:00 Metoprolol Tartrate (Lopressor) 5 mg Q4H PRN IV HR>110 Hold SBP<100; Start 01/26/19 at 14:30 Vancomycin HCl (Vanco Iv Per Pharmacy) VANCOMYCIN PER PHARMACY PER PROTOCOL XX ; Start 01/27/19 at 12:00 Enoxaparin Sodium (Lovenox) 60 mg DAILY SC Last administered on 02/03/19 08:06; Admin Dose 60 MG; Start 01/28/19 at 09:00; Status Hold Lorazepam (Ativan) 1 mg Q2 PRN IV SEIZURES Last administered on 02/02/19 09:18; Admin Dose 1 MG; Start 01/27/19 at 14:00 Atorvastatin Calcium (Lipitor) 40 mg QHS NGT Last administered on 02/06/19 20:50; Admin Dose 40 MG; Start 01/28/19 at 21:00 Docusate Sodium (Colace Liquid Cup) 100 mg BID NGT ; Start 01/27/19 at 22:00; Status Hold Terazosin HCl (Hytrin) 10 mg HS NGT Last administered on 02/06/19 20:50; Admin Dose 10 MG; Start 01/28/19 at 21:00 Levetiracetam 100 ml @ 400 mls/hr Q12 IVPB Last administered on 02/07/19 08:21; Admin Dose 400 MLS/HR; Start 01/28/19 at 09:00 Levothyroxine Sodium (Synthroid) 125 mcg BEFORE BREAKFAST NGT Last ad ministered on 02/07/19 06:11; Admin Dose 125 MCG; Start 01/28/19 at 07:00 Ferrous Sulfate (Feosol Liquid Cup) 300 mg WITH MEALS GTB Last administered on 02/07/19 13:15; Admin Dose 300 MG; Start 01/28/19 at 11:30 Multivitamins (Multivitamin) 30 ml DAILY GTB Last administered on 02/07/19 08:22; Admin Dose 30 ML; Start 01/28/19 at 11:00 Diagnostic Test (Pha) (Accu-Chek) 1 ea Q4 XX Last administered on 02/07/19 13:15; Admin Dose 1 EA; Start 01/28/19 at 13:00 Nystatin/ Triamcinolone Acetonide (Mycolog Oint) 1 applic BID TOP Last administered on 02/07/19 08:24; Admin Dose 1 APPLIC; Start 01/28/19 at 22:30 Insulin Aspart (Novolog Insulin Pen) NOVOLOG *MILD* ALGORI... Q4 SC Last administered on 02/07/19 14:03; Admin Dose 2 UNIT; Start 01/29/19 at 05:00 Albuterol/ Ipratropium (Duoneb) 3 ml Q6HWA RESP THERAPY HHN Last administered on 02/07/19 13:39; Admin Dose 3 ML; Start 01/29/19 at 14:00 Epoetin Dae-epbx (RETACRIT(non-esrd)) 40,000 unit Mo@1700 SC Last administered on 02/03/19 18:12; Admin Dose 40,000 UNIT; Start 02/03/19 at 17:00 Mupirocin (Bactroban) 1 applic BID TOP Last administered on 02/07/19 08:25; Admin Dose 1 APPLIC; Start 01/30/19 at 15:26; Stop 02/09/19 at 15:25 Tobramycin Sulfate/Sodium Chloride (Nilesh Inhal) 300 mg BID RESP THERAPY NEB Last administered on 02/07/19 08:29; Admin Dose 300 MG; Start 01/30/19 at 20:00 Insulin Glargine (Lantus) 10 units DAILY@2000 SC Last administered on 02/06/19 20:58; Admin Dose 10 UNITS; Start 01/31/19 at 20:00 Aztreonam 1 gm/ Dextrose 50 ml @ 100 mls/hr Q12 IVPB Last administered on 02/07/19 11:36; Admin Dose 100 MLS/HR; Start 02/03/19 at 21:00 Vancomycin HCl 750 mg/Dextrose 250 ml @ 125 mls/hr Q48H IVPB Last administered on 02/06/19 23:16; Admin Dose 125 MLS/HR; Start 02/04/19 at 23:00 Metoprolol Tartrate (Lopressor) 12.5 mg BID PO Last administered on 02/07/19 08:22; Admin Dose 12.5 MG; Start 02/05/19 at 21:00 Eye Lubricant (Refresh Plus) 1 drop QID BOTH EYES Last administered on 02/07/19 13:15; Admin Dose 1 DROP; Start 02/06/19 at 09:00 Eye Lubricant (Akwa Oint) 1 applic HS LEFT EYE Last administered on 02/06/19 22:38; Admin Dose 1 APPLIC; Start 02/06/19 at 21:00 Potassium Chloride (Potassium Chloride Pwd/Soln) 20 meq BID NGT Last administered on 02/07/19 08:22; Admin Dose 20 MEQ; Start 02/06/19 at 21:00 Multi-Ingredient Ointment (Aquaphor Oint 52.5 Gm) 1 applic BID TOP Last administered on 02/07/19 08:25; Admin Dose 1 APPLIC; Start 02/06/19 at 22:40 Lansoprazole (Prevacid) 30 mg BID@0600,1800 NGT ; Start 02/07/19 at 18:00 Assessment/Plan Hospital Course (Demo Recall) IMP: 1. s/p Acute hypoxemic respiratory failure likely secondary to combination of volume overload and pneumonia 2. Encephalopathy underlying dementia versus toxic metabolic, appears to be slowly improving possibly secondary to elevated sodium. 3. Valvular heart disease 4. Severe dysphagia 5. Status post septic shock likely secondary to above, persistent leukocytosis. 6. Anemia, no active GI bleeding 7. Skin diffuse excoriating skin lesion unclear etiology not consistent with history of "red man" syndrome. or pemphigus. 8. Anemia RECS: 1. Monitor respiratory status closely. 2. Continue broad-spectrum antibiotics 3. Infectious work-up as per ID 4. Consider further unit of PRBCs 5. Palliative care consult appreciated 6. Replete K+ and Mg, continue free water 7. Aspiration precautions, may require PEG tube placement Consider DNR CODE STATUS Overall prognosis remains guarded DIANA MCRAE MD, [facility] February 07, 2019 14:23
[2019-02-07] MEDS: FUROSEMIDE 20 MG INJ IV SCH (16:23)
[2019-02-07] MEDS: LANSOPRAZOLE 30 MG CAP NGT SCH (17:13)
[2019-02-07] MEDS: ATORVASTATIN 40 MG TAB NGT SCH (20:29)
[2019-02-07] MEDS: TERAZOSIN 5 MG CAP NGT SCH (20:32)
[2019-02-07] MEDS: INSULIN GLARGINE [LANTus] (100 UNITS/ML) SYG SC SCH (20:40)
[2019-02-07] MEDS: LATANOPROST 0.005% 2.5 ML OPH BOTH EYES SCH (22:09)
[2019-02-07] MEDS: OCULAR LUBRICANT 3.5 GM OPH OINT LEFT EYE SCH (22:10)
[2019-02-08] VITALS (18 sets, daily range): BP systolic 100–118; BP diastolic 45–78; PULSE 71–84; RESP 16–20
[2019-02-08] MEDS: INSULIN ASPART [NOVOLOG] 3 ML PEN SC SCH ×6 (01:00→22:47)
[2019-02-08] MEDS: ACCU-CHEK XX SCH ×6 (01:54→22:49)
[2019-02-08] MEDS: LANSOPRAZOLE 30 MG CAP NGT SCH ×2 (06:04→18:50)
[2019-02-08] MEDS: LEVOTHYROXINE 125 MCG TAB NGT SCH ×2 (06:04→10:41)
[2019-02-08] MEDS: ALBUTEROL/IPRATROPIUM (NEB) 3 ML AMP HHN SCH ×3 (08:23→19:50)
[2019-02-08] MEDS: TOBRAMYCIN/0.25NS 300 MG/5 ML INHAL NEB SCH ×2 (08:23→19:50)
--- NOTE | 2019-02-08 08:44 | CONS ---
Assessment/Plan Assessment/Plan Assessment/Plan (Daily) Consult Follow-up Patient Name: Brandin Mcintyre Unit Number: [id number] Date of : 1930 Patient Status: Admitted Inpatient Attending Doctor: Yanna Akhtar MD Assessment/Plan Assessment/Plan Assessment/Plan Assessment/Plan (Daily) Assessment/Plan (Daily) Assessment/Plan Hospital Course (Demo Recall) 88 [facility]B and febrile 1. Severe anemia likely due to chronic disease, last work up while admitted to [facility] about a week ago was neg for GI bleeding, including EGD/colon which was done -s/p EGD and colonoscopy by Dr Frost 01/09/19 which didn't find an obvious GI etiology to explain anemia. AVM or a small lesion could be missed due to poor prep. Pt likely needs capsule endoscopy -Neg fob, elevate retic, Low iron, tibc, [place] [id number] 2. Cystic lesion along pancreas body - 4.3 cm cystic lesion along the pancreas body, enlarged since 10/10/2012 (previously 2.4 cm). 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 -CEA wnl 3. Severe gastritis 4. Hemorrhoids 5. Hital hernia 6. A fib, -eliquis was stopped 01/06 during previous admission, on ASA 7. COPD 8. HTN 9. Hypothyroidism 10. Bilateral groin cellulitis 11. Rheumatoid arthritis. 12. Diabetes mellitus. 13. Peripheral vascular disease. 14. CHF 15. 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 Sepsis secondary to pneumonia 18. Encephalopathy secondary to sepsis 19. Hypothermia 20. Coagulopathy -INR 1.77 21 anemia, multifactorial etiology, chronic disease, B12 deficiency, low iron, occult GI bleeding. There is no evidence of gross GI bleeding 20. rash, desquamation 23 malnutrition Albumin is 1.9 Plan: Supportive ICU care Continue tube feeds, monitor residuals Pt will need outpatient EUS to evaluate pancreatic mass Recommend capsule endoscopy as outpatient Transfusion and monitor H&H closely I have discussed with the daughter if the bleeding continues and there is a significant drop in hematocrit requiring multiple transfusion then patient may need push enteroscopy. Daughter has declined at this point and wants to manage patient conservatively Beneprotein through NG tube Consultation Date/Type/Reason Admit Date/Time Jan 17, 2019 at 15:58 Initial Consult Date 01/18/19 Requesting Provider: YANNA AKHTAR MD Date/Time of Note DATE: 02/08/19 TIME: 08:42 24 HR Interval Summary Constitutional: disoriented Exam/Review of Systems Exam Vitals Vital Signs Date Temp Pulse Resp B/P (MAP) Pulse Ox O2 O2 Flow FiO2 Time Delivery Rate 02/08/19 75 08:37 02/08/19 98.7 18 114/54 98 Nasal 08:02 (74) Cannula 02/08/19 2.0 00:31 02/04/19 70 14:45 Intake and Output 02/07/19 02/07/19 02/08/19 1515:00 23:00 07:00 IntakeIntake Total 250 ml 1170 ml 1100 ml OutputOutput Total 1100 ml 1430 ml BalanceBalance 250 ml 70 ml -330 ml Psych: confusion Cardiovascular: regular rate and rhythm, nl pulses Musculoskeletal: nl extremities to inspection, nl gait and stance Neurological: confused Skin: other (Desquamation of skin with hyperpigmentation throughout the body) Results Result Diagram: 02/08/19 0603 02/08/19 0603 Results 24hrs Laboratory Tests Test 02/07/19 08:47 02/07/19 13:17 02/07/19 16:34 02/07/19 20:28 Bedside Glucose 201 209 186 109 Test 02/08/19 01:49 02/08/19 04:58 02/08/19 06:03 Bedside Glucose 132 143 White Blood Count 25.5 #H Red Blood Count 2.53 L Hemoglobin 7.4 L Hematocrit 23.5 L Mean Corpuscular 92.9 Volume Mean Corpuscular 29.2 Hemoglobin Mean Corpuscular 31.5 L Hemoglobin Concent Red Cell 21.4 H Distribution Width Platelet Count 122 L Mean Platelet Volume 13.7 H Immature 0.700 H Granulocytes % Neutrophils % 90.7 H Lymphocytes % 6.0 L Monocytes % 1.9 Eosinophils % 0.5 Basophils % 0.2 Nucleated Red Blood 0.2 H Cells % Immature 0.180 H Granulocytes # Neutrophils # 23.2 H Lymphocytes # 1.5 Monocytes # 0.5 Eosinophils # 0.1 Basophils # 0.0 Nucleated Red Blood 0.1 H Cells # Sodium Level 148 H Potassium Level 4.4 Chloride Level 117 H Carbon Dioxide Level 29 Anion Gap 2 L Blood Urea Nitrogen 61 H Creatinine 1.66 H Est Glomerular Filtrat Rate mL/min Glucose Level 125 # Calcium Level 7.4 L Medications Medication Current Medications Lactulose (Enulose) 20 gm DAILY PRN PO CONSTIPATION; Start 01/17/19 at 18:17 Acetaminophen (Tylenol Tab) 650 mg Q4H PRN PO PAIN Last administered on 01/23/19at 22:48; Admin Dose 650 MG; Start 01/17/19 at 18:17 Miscellaneous Information [facility] This patient ramirez... PRN PRN XX WOUND CARE; Start 01/17/19 at 18:17 Albuterol/ Ipratropium (Duoneb) 3 ml Q2H RESP THERAPY PRN HHN SHORTNESS OF BREATH Last administered on 02/07/19at 05:45; Admin Dose 3 ML; Start 01/17/19 at 18:17 Bisacodyl (Dulcolax) 10 mg BID PRN PO CONSTIPATION; Start 01/17/19 at 18:17; Status Hold Folic Acid (Folic Acid) 1 mg DAILY PO Last administered on 02/07/19at 08:22; Admin Dose 1 MG; Start 01/17/19 at 18:17 Latanoprost (Xalatan) 1 drop HS BOTH EYES Last administered on 02/07/19at 22:09; Admin Dose 1 DROP; Start 01/17/19 at 18:17 Nitroglycerin (Nitroglycerin (Sl Tab) 0.4 Mg) 0.4 tab Q5M PRN SL CHEST PAIN; Start 01/17/19 at 18:17 Nystatin (Nystatin Powder) 1 applic BID TOP Last administered on 02/07/19at 20:35; Admin Dose 1 APPLIC; Start 01/17/19 at 18:17 IV Flush (NS 3 ml) 3 ml PER PROTOCOL IV ; Start 01/17/19 at 18:17 Miscellaneous Information 1 ea NOTE XX ; Start 01/17/19 at 18:17 Glucose (Glutose) 15 gm Q15M PRN PO DECREASED GLUCOSE; Start 01/17/19 at 18:17 Glucose (Glutose) 22.5 gm Q15M PRN PO DECREASED GLUCOSE; Start 01/17/19 at 18:17 Dextrose (D50w Syringe) 25 ml Q15M PRN IV DECREASED GLUCOSE Last administered on 02/05/19 09:50; Admin Dose 25 ML; Start 01/17/19 at 18:17 Dextrose (D50w Syringe) 50 ml Q15M PRN IV DECREASED GLUCOSE; Start 01/17/19 at 18:17 Glucagon (Glucagen) 1 mg Q15M PRN IM DECREASED GLUCOSE; Start 01/17/19 at 18:17 Glucose (Glutose) 15 gm Q15M PRN BUCCAL DECREASED GLUCOSE; Start 01/17/19 at 18:17 Ascorbic Acid (Vitamin C) 250 mg DAILY PO Last administered on 02/07/19at 08:22; Admin Dose 250 MG; Start 01/17/19 at 18:17 Bisacodyl (Dulcolax Supp) 10 mg DAILY PRN [place] CONSTIPATION; Start 01/17/19 at 18:17 Zinc Acetate/ Diphenhydramine (Benadryl 2% Cr) 1 applic Q6H PRN TOP ITCHING Last administered on 01/26/19at 07:54; Admin Dose 1 APPLIC; Start 01/19/19 at 16:37 IV Flush (NS 10 ml) 10 ml PRN PRN IV IV PROTOCOL; Start 01/20/19 at 14:30 Cyanocobalamin (Vitamin B12 Inj) 1,000 mcg Q7D IM Last administered on 02/03at 08:14; Admin Dose 1,000 MCG; Start 02/03/19 at 09:00 Metoprolol Tartrate (Lopressor) 5 mg Q4H PRN IV HR>110 Hold SBP<100; Start 01/26/19 at 14:30 Vancomycin HCl (Vanco Iv Per Pharmacy) VANCOMYCIN PER PHARMACY PER PROTOCOL XX ; Start 01/27/19 at 12:00 Enoxaparin Sodium (Lovenox) 60 mg DAILY SC Last administered on 02/03/19at 08:06; Admin Dose 60 MG; Start 01/28/19 at 09:00; Status Hold Lorazepam (Ativan) 1 mg Q2 PRN IV SEIZURES Last administered on 02/02/19 09:18; Admin Dose 1 MG; Start 01/27/19 at 14:00 Atorvastatin Calcium (Lipitor) 40 mg QHS NGT Last administered on 02/07/19at 20:29; Admin Dose 40 MG; Start 01/28/19 at 21:00 Docusate Sodium (Colace Liquid Cup) 100 mg BID NGT ; Start 01/27/19 at 22:00; Status Hold Terazosin HCl (Hytrin) 10 mg HS NGT Last administered on 02/07/19 20:32; Admin Dose 10 MG; Start 01/28/19 at 21:00 Levetiracetam 100 ml @ 400 mls/hr Q12 IVPB Last administered on 02/07/19 20:33; Admin Dose 400 MLS/HR; Start 01/28/19 at 09:00 Levothyroxine Sodium (Synthroid) 125 mcg BEFORE BREAKFAST NGT Last administered on 02/08/19 06:04; Admin Dose 125 MCG; Start 01/28/19 at 07:00 Ferrous Sulfate (Feosol Liquid Cup) 300 mg WITH MEALS GTB Last administered on 02/07/19 17:13; Admin Dose 300 MG; Start 01/28/19 at 11:30 Multivitamins (Multivitamin) 30 ml DAILY GTB Last administered on 02/07/19 08:22; Admin Dose 30 ML; Start 01/28/19 at 11:00 Diagnostic Test (Pha) (Accu-Chek) 1 ea Q4 XX Last administered on 02/08/19 05:09; Admin Dose 1 EA; Start 01/28/19 at 13:00 Nystatin/ Triamcinolone Acetonide (Mycolog Oint) 1 applic BID TOP Last administered on 02/07/19 20:36; Admin Dose 1 APPLIC; Start 01/28/19 at 22:30 Insulin Aspart (Novolog Insulin Pen) NOVOLOG *MILD* ALGORI... Q4 SC Last administered on 02/08/19 05:09; Admin Dose 1 UNIT; Start 01/29/19 at 05:00 Albuterol/ Ipratropium (Duoneb) 3 ml Q6HWA RESP THERAPY HHN Last administered on 02/08/19 08:23; Admin Dose 3 ML; Start 01/29/19 at 14:00 Epoetin Dae-epbx (RETACRIT(non-esrd)) 40,000 unit Mo@1700 SC Last administered on 02/03/19 18:12; Admin Dose 40,000 UNIT; Start 02/03/19 at 17:00 Mupirocin (Bactroban) 1 applic BID TOP Last administered on 02/07/19 20:36; Admin Dose 1 APPLIC; Start 01/30/19 at 15:26; Stop 02/09/19 at 15:25 Insulin Glargine (Lantus) 10 units DAILY@2000 SC Last administered on 02/07/19 20:40; Admin Dose 10 UNITS; Start 01/31/19 at 20:00 Aztreonam 1 gm/ Dextrose 50 ml @ 100 mls/hr Q12 IVPB Last administered on 02/07/19 20:33; Admin Dose 100 MLS/HR; Start 02/03/19 at 21:00 Vancomycin HCl 750 mg/Dextrose 250 ml @ 125 mls/hr Q48H IVPB Last administered on 02/06/19 23:16; Admin Dose 125 MLS/HR; Start 02/04/19 at 23:00 Metoprolol Tartrate (Lopressor) 12.5 mg BID PO Last administered on 02/07/19 20:32; Admin Dose 12.5 MG; Start 02/05/19 at 21:00 Eye Lubricant (Refresh Plus) 1 drop QID BOTH EYES Last administered on 02/07/19 20:29; Admin Dose 1 DROP; Start 02/06/19 at 09:00 Eye Lubricant (Akwa Oint) 1 applic HS LEFT EYE Last administered on 02/07/19 22:10; Admin Dose 1 APPLIC; Start 02/06/19 at 21:00 Potassium Chloride (Potassium Chloride Pwd/Soln) 20 meq BID NGT Last administered on 02/07/19 20:32; Admin Dose 20 MEQ; Start 02/06/19 at 21:00 Multi-Ingredient Ointment (Aquaphor Oint 52.5 Gm) 1 applic BID TOP Last administered on 02/07/19 20:34; Admin Dose 1 APPLIC; Start 02/06/19 at 22:40 Lansoprazole (Prevacid) 30 mg BID@0600,1800 NGT Last administered on 02/08/19 06:04; Admin Dose 30 MG; Start 02/07/19 at 18:00 Furosemide (Lasix) 20 mg DAILY IV Last administered on 02/07/19 16:23; Admin Dose 20 MG; Start 02/07/19 at 16:00 Tobramycin Sulfate/Sodium Chloride (Nilesh Inhal) 300 mg BID RESP THERAPY NEB Last administered on 02/08/19at 08:23; Admin Dose 300 MG; Start 02/08/19 at 09:00 MICHELLE FROST MD February 08, 2019 08:44
[2019-02-08] MEDS: AZTREONAM 1 GM in DEXTROSE 5% 50 ML IVPB SCH ×2 (10:36→21:48)
[2019-02-08] MEDS: LEVETIRACETAM 500 MG (PMX) 100 ML IVPB SCH ×2 (10:36→21:48)
[2019-02-08] MEDS: FERROUS SULFATE 60 MG/ML 5ML CUP GTB SCH ×3 (10:40→18:46)
[2019-02-08] MEDS: MULTIVITAMINS 30 ML CUP GTB SCH (10:40)
[2019-02-08] MEDS: ASCORBIC ACID 250 MG TAB PO SCH (10:41)
[2019-02-08] MEDS: POTASSIUM CHLORIDE 20 MEQ POWDER FOR ORAL SOLN NGT SCH ×2 (10:41→21:56)
[2019-02-08] MEDS: FOLIC ACID 1 MG TAB PO SCH (10:41)
[2019-02-08] MEDS: FUROSEMIDE 20 MG INJ IV SCH ×2 (10:41→18:49)
[2019-02-08] MEDS: CARBOXYMETHYLCELLULOSE 0.5% 0.4 ML OPH BOTH EYES SCH ×4 (10:41→21:56)
[2019-02-08] MEDS: METOPROLOL 25 MG TAB PO SCH ×2 (10:42→21:59)
[2019-02-08] MEDS: BALSAM PERU/CASTOR OIL 60 GM TUBE TOP SCH ×2 (10:42→21:00)
[2019-02-08] MEDS: NYSTATIN/TRIAMCINOLONE 15 GM OINT TOP SCH (10:43)
[2019-02-08] MEDS: MUPIROCIN 2% 22 GM OINT TOP SCH ×2 (10:43→21:00)
[2019-02-08] MEDS: NYSTATIN 30 GM POWDER BTL TOP SCH (10:43)
[2019-02-08] MEDS: AQUAPHOR 52.5 GM OINT TOP SCH (10:44)
--- NOTE | 2019-02-08 10:46 | PN ---
Date/Time of Note Date/Time of Note DATE: 02/08/19 TIME: 10:43 Assessment/Plan VTE Prophylaxis Risk score (from [facility])>0 risk: 11 SCD applied (from [facility]): No SCD contraindicated: bilateral LE trauma Pharmacological prophylaxis: NA/contraindicated Pharm contraindication: surgical contra Lines/Catheters IV [facility]ter Type (from [facility] Central Line Central line still needed: Yes Urinary Cath still in place: Yes Reason Cath still needed: urinary retention Assessment/Plan Hospital Course 1. Sepsis, WBC rising , lactic acidosis. LActic acid recently 2.5 2. Severe anemia 3. Chronic renal failure likely secondary to sepsis 4. Hypertension. 5. Hyperlipidemia. 6. Hypothyroidism. 7. Normocytic normochromic chronic anemia with recent hemoglobin drop. 8. Bilateral groin cellulitis more likely associated with mateus, patches in groin and axilla bilaterally. skin peeling 9. History of rheumatoid arthritis with joint deformities. 10. Diabetes type 2. 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 Peripheral vascular disease. 13. Chronic a.fib 14. right arm edema, better 15. Neoplasm per CT abdomen. 4.3 cm cystic lesion along the pancreas body, enlarged since 10/10/2012 (previously 2.4 cm). 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 16. Possible allergic skin reaction, biopsy is obtained 17. altered mental status delirium vs stroke, resolved 18. Hypernatremia 156 from 152 19. Eye muscle paralysis. Assessment/Plan - GI consult dr Frost -communicated Daughter No, pt need G tube - dec d5 w to 50 same today to 148 from 148 - cw [employer] 60 cc/hr, -fu speech recs - cw aztreonam/vanco/flagyl/tobra -cw keppra -restraints renewed -LP was refused by family - GI proph. IV PPI -DVT prophylaxis unable to tolerate -skin care -poor prognosis Result Diagram: 02/08/19 0603 02/08/19 0603 Results 24hrs Laboratory Tests Test 02/07/19 13:17 02/07/19 16:34 02/07/19 20:28 02/08/19 01:49 Bedside Glucose 209 186 109 132 Test 02/08/19 04:58 02/08/19 06:03 Bedside Glucose 143 White Blood Count 25.5 #H Red Blood Count 2.53 L Hemoglobin 7.4 L Hematocrit 23.5 L Mean Corpuscular 92.9 Volume Mean Corpuscular 29.2 Hemoglobin Mean Corpuscular 31.5 L Hemoglobin Concent Red Cell 21.4 H Distribution Width Platelet Count 122 L Mean Platelet Volume 13.7 H Immature 0.700 H Granulocytes % Neutrophils % 90.7 H Lymphocytes % 6.0 L Monocytes % 1.9 Eosinophils % 0.5 Basophils % 0.2 Nucleated Red Blood 0.2 H Cells % Immature 0.180 H Granulocytes # Neutrophils # 23.2 H Lymphocytes # 1.5 Monocytes # 0.5 Eosinophils # 0.1 Basophils # 0.0 Nucleated Red Blood 0.1 H Cells # Sodium Level 148 H Potassium Level 4.4 Chloride Level 117 H Carbon Dioxide Level 29 Anion Gap 2 L Blood Urea Nitrogen 61 H Creatinine 1.66 H Est Glomerular Filtrat Rate mL/min Glucose Level 125 # Calcium Level 7.4 L Subjective 24 Hr Interval Summary Subjective hx not possible: pt non-verbal Exam/Review of Systems Exam Vitals Vital Signs Date Temp Pulse Resp B/P (MAP) Pulse Ox O2 O2 Flow FiO2 Time Delivery Rate 02/08/19 75 08:37 02/08/19 20 96 Nasal 2.0 08:33 Cannula 02/08/19 98.7 114/54 08:02 (74) 02/04/19 70 14:45 Intake and Output 02/07/19 02/07/19 02/08/19 1515:00 23:00 07:00 IntakeIntake Total 250 ml 1170 ml 1100 ml OutputOutput Total 1100 ml 1430 ml BalanceBalance 250 ml 70 ml -330 ml Constitutional: non-verbal, frail Eyes: other (oph. changes) Neck: supple Respiratory: diminished breath sounds Cardiovascular: irregular rhythm (afib on monitor) Genitourinary - Male: other (rinaldi) Neurological: confused Results Results 24hrs Laboratory Tests Test 02/07/19 13:17 02/07/19 16:34 02/07/19 20:28 02/08/19 01:49 Bedside Glucose 209 186 109 132 Test 02/08/19 04:58 02/08/19 06:03 Bedside Glucose 143 White Blood Count 25.5 #H Red Blood Count 2.53 L Hemoglobin 7.4 L Hematocrit 23.5 L Mean Corpuscular 92.9 Volume Mean Corpuscular 29.2 Hemoglobin Mean Corpuscular 31.5 L Hemoglobin Concent Red Cell 21.4 H Distribution Width Platelet Count 122 L Mean Platelet Volume 13.7 H Immature 0.700 H Granulocytes % Neutrophils % 90.7 H Lymphocytes % 6.0 L Monocytes % 1.9 Eosinophils % 0.5 Basophils % 0.2 Nucleated Red Blood 0.2 H Cells % Immature 0.180 H Granulocytes # Neutrophils # 23.2 H Lymphocytes # 1.5 Monocytes # 0.5 Eosinophils # 0.1 Basophils # 0.0 Nucleated Red Blood 0.1 H Cells # Sodium Level 148 H Potassium Level 4.4 Chloride Level 117 H Carbon Dioxide Level 29 Anion Gap 2 L Blood Urea Nitrogen 61 H Creatinine 1.66 H Est Glomerular Filtrat Rate mL/min Glucose Level 125 # Calcium Level 7.4 L Medications Medication Current Medications Lactulose (Enulose) 20 gm DAILY PRN PO CONSTIPATION; Start 01/17/19 at 18:17 Acetaminophen (Tylenol Tab) 650 mg Q4H PRN PO PAIN Last administered on 01/23/19 22:48; Admin Dose 650 MG; Start 01/17/19 at 18:17 Miscellaneous Information (Pending [facility] Order For Wound Care) This patient ramirez... PRN PRN XX WOUND CARE; Start 01/17/19 at 18:17 Albuterol/ Ipratropium (Duoneb) 3 ml Q2H RESP THERAPY PRN HHN SHORTNESS OF BREATH Last administered on 02/07/19 05:45; Admin Dose 3 ML; Start 01/17/19 at 18:17 Bisacodyl (Dulcolax) 10 mg BID PRN PO CONSTIPATION; Start 01/17/19 at 18:17; Status Hold Folic Acid (Folic Acid) 1 mg DAILY PO Last administered on 02/07/19 08:22; Admin Dose 1 MG; Start 01/17/19 at 18:17 Latanoprost (Xalatan) 1 drop HS BOTH EYES Last administered on 02/07/19 22:09; Admin Dose 1 DROP; Start 01/17/19 at 18:17 Nitroglycerin (Nitroglycerin (Sl Tab) 0.4 Mg) 0.4 tab Q5M PRN SL CHEST PAIN; Start 01/17/19 at 18:17 Nystatin (Nystatin Powder) 1 applic BID TOP Last administered on 5/17/19at 20:35; Admin Dose 1 APPLIC; Start 01/17/19 at 18:17 IV Flush (NS 3 ml) 3 ml PER PROTOCOL IV ; Start 01/17/19 at 18:17 Miscellaneous Information 1 ea NOTE XX ; Start 01/17/19 at 18:17 Glucose (Glutose) 15 gm Q15M PRN PO DECREASED GLUCOSE; Start 01/17/19 at 18:17 Glucose (Glutose) 22.5 gm Q15M PRN PO DECREASED GLUCOSE; Start 01/17/19 at 18:17 Dextrose (D50w Syringe) 25 ml Q15M PRN IV DECREASED GLUCOSE Last administered on 02/05/19at 09:50; Admin Dose 25 ML; Start 01/17/19 at 18:17 Dextrose (D50w Syringe) 50 ml Q15M PRN IV DECREASED GLUCOSE; Start 01/17/19 at 18:17 Glucagon (Glucagen) 1 mg Q15M PRN IM DECREASED GLUCOSE; Start 01/17/19 at 18:17 Glucose (Glutose) 15 gm Q15M PRN BUCCAL DECREASED GLUCOSE; Start 01/17/19 at 18:17 Ascorbic Acid (Vitamin C) 250 mg DAILY PO Last administered on 02/07/19at 08:22; Admin Dose 250 MG; Start 01/17/19 at 18:17 Bisacodyl (Dulcolax Supp) 10 mg DAILY PRN [place] CONSTIPATION; Start 01/17/19 at 18:17 Zinc Acetate/ Diphenhydramine (Benadryl 2% Cr) 1 applic Q6H PRN TOP ITCHING Last administered on 01/26/19at 07:54; Admin Dose 1 APPLIC; Start 01/19/19 at 16:37 IV Flush (NS 10 ml) 10 ml PRN PRN IV IV PROTOCOL; Start 01/20/19 at 14:30 Cyanocobalamin (Vitamin B12 Inj) 1,000 mcg Q7D IM Last administered on 02/03/19at 08:14; Admin Dose 1,000 MCG; Start 02/03/19 at 09:00 Metoprolol Tartrate (Lopressor) 5 mg Q4H PRN IV HR>110 Hold SBP<100; Start 01/26/19 at 14:30 Vancomycin HCl (Vanco Iv Per Pharmacy) VANCOMYCIN PER PHARMACY PER PROTOCOL XX ; Start 01/27/19 at 12:00 Enoxaparin Sodium (Lovenox) 60 mg DAILY SC Last administered on 02/03/19 08:06; Admin Dose 60 MG; Start 01/28/19 at 09:00; Status Hold Lorazepam (Ativan) 1 mg Q2 PRN IV SEIZURES Last administered on 02/02/19 09:18; Admin Dose 1 MG; Start 01/27/19 at 14:00 Atorvastatin Calcium (Lipitor) 40 mg QHS NGT Last administered on 02/07/19 20:29; Admin Dose 40 MG; Start 01/28/19 at 21:00 Docusate Sodium (Colace Liquid Cup) 100 mg BID NGT ; Start 01/27/19 at 22:00; Status Hold Terazosin HCl (Hytrin) 10 mg HS NGT Last administered on 02/07/19 20:32; Admin Dose 10 MG; Start 01/28/19 at 21:00 Levetiracetam 100 ml @ 400 mls/hr Q12 IVPB Last administered on 02/07/19 20:33; Admin Dose 400 MLS/HR; Start 01/28/19 at 09:00 Levothyroxine Sodium (Synthroid) 125 mcg BEFORE BREAKFAST NGT Last administe red on 02/08/19 06:04; Admin Dose 125 MCG; Start 01/28/19 at 07:00 Ferrous Sulfate (Feosol Liquid Cup) 300 mg WITH MEALS GTB Last administered on 02/07/19 17:13; Admin Dose 300 MG; Start 01/28/19 at 11:30 Multivitamins (Multivitamin) 30 ml DAILY GTB Last administered on 02/07/19 08:22; Admin Dose 30 ML; Start 01/28/19 at 11:00 Diagnostic Test (Pha) (Accu-Chek) 1 ea Q4 XX Last administered on 02/08/19 05:09; Admin Dose 1 EA; Start 01/28/19 at 13:00 Nystatin/ Triamcinolone Acetonide (Mycolog Oint) 1 applic BID TOP Last administered on 02/07/19 20:36; Admin Dose 1 APPLIC; Start 01/28/19 at 22:30 Insulin Aspart (Novolog Insulin Pen) NOVOLOG *MILD* ALGORI... Q4 SC Last administered on 02/08/19 05:09; Admin Dose 1 UNIT; Start 01/29/19 at 05:00 Albuterol/ Ipratropium (Duoneb) 3 ml Q6HWA RESP THERAPY HHN Last administered on 02/08/19 08:23; Admin Dose 3 ML; Start 01/29/19 at 14:00 Epoetin Dae-epbx (RETACRIT(non-esrd)) 40,000 unit Mo@1700 SC Last administered on 02/03/19 18:12; Admin Dose 40,000 UNIT; Start 02/03/19 at 17:00 Mupirocin (Bactroban) 1 applic BID TOP Last administered on 02/07/19 20:36; Admin Dose 1 APPLIC; Start 01/30/19 at 15:26; Stop 02/09/19 at 15:25 Insulin Glargine (Lantus) 10 units DAILY@2000 SC Last administered on 02/07/19 20:40; Admin Dose 10 UNITS; Start 01/31/19 at 20:00 Aztreonam 1 gm/ Dextrose 50 ml @ 100 mls/hr Q12 IVPB Last administered on 20:33; Admin Dose 100 MLS/HR; Start 02/03/19 at 21:00 Vancomycin HCl 750 mg/Dextrose 250 ml @ 125 mls/hr Q48H IVPB Last administered on 02/06/19 23:16; Admin Dose 125 MLS/HR; Start 02/04/19 at 23:00 Metoprolol Tartrate (Lopressor) 12.5 mg BID PO Last administered on 02/07/19 20:32; Admin Dose 12.5 MG; Start 02/05/19 at 21:00 Eye Lubricant (Refresh Plus) 1 drop QID BOTH EYES Last administered on 02/07/19 20:29; Admin Dose 1 DROP; Start 02/06/19 at 09:00 Eye Lubricant (Akwa Oint) 1 applic HS LEFT EYE Last administered on 02/07/19 22:10; Admin Dose 1 APPLIC; Start 02/06/19 at 21:00 Potassium Chloride (Potassium Chloride Pwd/Soln) 20 meq BID NGT Last administered on 02/07/19 20:32; Admin Dose 20 MEQ; Start 02/06/19 at 21:00 Multi-Ingredient Ointment (Aquaphor Oint 52.5 Gm) 1 applic BID TOP Last administered on 02/07/19at 20:34; Admin Dose 1 APPLIC; Start 02/06/19 at 22:40 Lansoprazole (Prevacid) 30 mg BID@0600,1800 NGT Last administered on 02/08/19at 06:04; Admin Dose 30 MG; Start 02/07/19 at 18:00 Furosemide (Lasix) 20 mg DAILY IV Last administered on 02/07/19at 16:23; Admin Dose 20 MG; Start 02/07/19 at 16:00 Tobramycin Sulfate/Sodium Chloride (Nilesh Inhal) 300 mg BID RESP THERAPY NEB Last administered on 02/08/19at 08:23; Admin Dose 300 MG; Start 02/08/19 at 09:00 Miscellaneous Information (*Rx Drug Level Order Reminder*) VANCOMYCIN TROUGH AT 2200 ONCE ONCE XX ; Start 02/08/19 at 22:00; Stop 02/08/19 at 22:01 COOPER CARO February 08, 2019 10:46
--- NOTE | 2019-02-08 11:36 | CONS ---
Consult Date/Type/Reason Admit Date/Time Jan 17, 2019 at 15:58 Initial Consult Date 01/18/19 Type of Consult Pulmonary Requesting Provider: IVAN AKHTAR MD Date/Time of Note DATE: 02/08/19 TIME: 11:35 Subjective No significant changes from pulmonary standpoint. Objective Vital Signs Date Temp Pulse Resp B/P (MAP) Pulse Ox O2 O2 Flow FiO2 Time Delivery Rate 02/08/19 75 08:37 02/08/19 20 96 Nasal 2.0 08:33 Cannula 02/08/19 98.7 114/54 08:02 (74) 02/04/19 70 14:45 Intake and Output 02/07/19 02/07/19 02/08/19 1515:00 23:00 07:00 IntakeIntake Total 250 ml 1170 ml 1100 ml OutputOutput Total 1100 ml 1430 ml BalanceBalance 250 ml 70 ml -330 ml Exam GENERAL: Frail elderly gentleman comfortable at rest on nasal cannula VITAL SIGNS: per chart NECK: Supple. No JVD or lymphadenopathy. CARDIAC EXAM: S1, S2. No added sounds or murmurs. CHEST: Diminished air entry both bases ABDOMEN: Soft, nontender. No guarding or rebound. EXTREMITIES: No cyanosis, clubbing edema +2 NEUROLOGIC: Generalized weakness. Vent Setting Ventilator Support Mode: AC Fraction of Inspired Oxygen pe: 70 Positive End Expiratory Pressu: 5.0 Results/Medications Result Diagram: 02/08/19 0603 02/08/19 0603 Results 24 hrs Laboratory Tests Test 02/07/19 13:17 02/07/19 16:34 02/07/19 20:28 02/08/19 01:49 Bedside Glucose 209 186 109 132 Test 02/08/19 04:58 02/08/19 06:03 02/08/19 10:51 Bedside Glucose 143 147 White Blood Count 25.5 #H Red Blood Count 2.53 L Hemoglobin 7.4 L Hematocrit 23.5 L Mean Corpuscular 92.9 Volume Mean Corpuscular 29.2 Hemoglobin Mean Corpuscular 31.5 L Hemoglobin Concent Red Cell 21.4 H Distribution Width Platelet Count 122 L Mean Platelet Volume 13.7 H Immature 0.700 H Granulocytes % Neutrophils % 90.7 H Lymphocytes % 6.0 L Monocytes % 1.9 Eosinophils % 0.5 Basophils % 0.2 Nucleated Red Blood 0.2 H Cells % Immature 0.180 H Granulocytes # Neutrophils # 23.2 H Lymphocytes # 1.5 Monocytes # 0.5 Eosinophils # 0.1 Basophils # 0.0 Nucleated Red Blood 0.1 H Cells # Sodium Level 148 H Potassium Level 4.4 Chloride Level 117 H Carbon Dioxide Level 29 Anion Gap 2 L Blood Urea Nitrogen 61 H Creatinine 1.66 H Est Glomerular Filtrat Rate mL/min Glucose Level 125 # Calcium Level 7.4 L Medications Current Medications Lactulose (Enulose) 20 gm DAILY PRN PO CONSTIPATION; Start 01/17/19 at 18:17 Acetaminophen (Tylenol Tab) 650 mg Q4H PRN PO PAIN Last administered on 01/23/19 22:48; Admin Dose 650 MG; Start 01/17/19 at 18:17 Miscellaneous Information (Pending [facility] Order For Wound Care) This patient ramirez... PRN PRN XX WOUND CARE; Start 01/17/19 at 18:17 Albuterol/ Ipratropium (Duoneb) 3 ml Q2H RESP THERAPY PRN HHN SHORTNESS OF BREATH Last administered on 02/07/19at 05:45; Admin Dose 3 ML; Start 01/17/19 at 18:17 Bisacodyl (Dulcolax) 10 mg BID PRN PO CONSTIPATION; Start 01/17/19 at 18:17; Status Hold Folic Acid (Folic Acid) 1 mg DAILY PO Last administered on 02/08/19at 10:41; Admin Dose 1 MG; Start 01/17/19 at 18:17 Latanoprost (Xalatan) 1 drop HS BOTH EYES Last administered on 02/07/19at 22:09; Admin Dose 1 DROP; Start 01/17/19 at 18:17 Nitroglycerin (Nitroglycerin (Sl Tab) 0.4 Mg) 0.4 tab Q5M PRN SL CHEST PAIN; Start 01/17/19 at 18:17 Nystatin (Nystatin Powder) 1 applic BID TOP Last administered on 02/08/19at 10:43; Admin Dose 1 APPLIC; Start 01/17/19 at 18:17 IV Flush (NS 3 ml) 3 ml PER PROTOCOL IV ; Start 01/17/19 at 18:17 Miscellaneous Information 1 ea NOTE XX ; Start 01/17/19 at 18:17 Glucose (Glutose) 15 gm Q15M PRN PO DECREASED GLUCOSE; Start 01/17/19 at 18:17 Glucose (Glutose) 22.5 gm Q15M PRN PO DECREASED GLUCOSE; Start 01/17/19 at 18:17 Dextrose (D50w Syringe) 25 ml Q15M PRN IV DECREASED GLUCOSE Last administered on 02/05/19at 09:50; Admin Dose 25 ML; Start 01/17/19 at 18:17 Dextrose (D50w Syringe) 50 ml Q15M PRN IV DECREASED GLUCOSE; Start 01/17/19 at 18:17 Glucagon (Glucagen) 1 mg Q15M PRN IM DECREASED GLUCOSE; Start 01/17/19 at 18:17 Glucose (Glutose) 15 gm Q15M PRN BUCCAL DECREASED GLUCOSE; Start 01/17/19 at 18:17 Ascorbic Acid (Vitamin C) 250 mg DAILY PO Last administered on 02/08/19at 10:41; Admin Dose 250 MG; Start 01/17/19 at 18:17 Bisacodyl (Dulcolax Supp) 10 mg DAILY PRN [place] CONSTIPATION; Start 01/17/19 at 18:17 Zinc Acetate/ Diphenhydramine (Benadryl 2% Cr) 1 applic Q6H PRN TOP ITCHING Last administered on 01/26/19at 07:54; Admin Dose 1 APPLIC; Start 01/19/19 at 16:37 IV Flush (NS 10 ml) 10 ml PRN PRN IV IV PROTOCOL; Start 01/20/19 at 14:30 Cyanocobalamin (Vitamin B12 Inj) 1,000 mcg Q7D IM Last administered on 02/03/19at 08:14; Admin Dose 1,000 MCG; Start 02/03/19 at 09:00 Metoprolol Tartrate (Lopressor) 5 mg Q4H PRN IV HR>110 Hold SBP<100; Start 01/26/19 at 14:30 Vancomycin HCl (Vanco Iv Per Pharmacy) VANCOMYCIN PER PHARMACY PER PROTOCOL XX ; Start 01/27/19 at 12:00 Enoxaparin Sodium (Lovenox) 60 mg DAILY SC Last administered on 02/03/19at 08:06; Admin Dose 60 MG; Start 01/28/19 at 09:00; Status Hold Lorazepam (Ativan) 1 mg Q2 PRN IV SEIZURES Last administered on 02/02/19at 09:18; Admin Dose 1 MG; Start 01/27/19 at 14:00 Atorvastatin Calcium (Lipitor) 40 mg QHS NGT Last administered on 02/07/19 20:29; Admin Dose 40 MG; Start 01/28/19 at 21:00 Docusate Sodium (Colace Liquid Cup) 100 mg BID NGT ; Start 01/27/19 at 22:00; Status Hold Terazosin HCl (Hytrin) 10 mg HS NGT Last administered on 02/07/19 20:32; Admin Dose 10 MG; Start 01/28/19 at 21:00 Levetiracetam 100 ml @ 400 mls/hr Q12 IVPB Last administered on 02/08/19 10:36; Admin Dose 400 MLS/HR; Start 01/28/19 at 09:00 Levothyroxine Sodium (Synthroid) 125 mcg BEFORE BREAKFAST NGT Last administered on 02/08/19 10:41; Admin Dose 125 MCG; Start 01/28/19 at 07:00 Ferrous Sulfate (Feosol Liquid Cup) 300 mg WITH MEALS GTB Last administered on 02/08/19 10:49; Admin Dose 300 MG; Start 01/28/19 at 11:30 Multivitamins (Multivitamin) 30 ml DAILY GTB Last administered on 02/08/19 10:40; Admin Dose 30 ML; Start 01/28/19 at 11:00 Diagnostic Test (Pha) (Accu-Chek) 1 ea Q4 XX Last administered on 02/08/19 09:00; Admin Dose 1 EA; Start 01/28/19 at 13:00 Nystatin/ Triamcinolone Acetonide (Mycolog Oint) 1 applic BID TOP Last administered on 02/08/19 10:43; Admin Dose 1 APPLIC; Start 01/28/19 at 22:30 Insulin Aspart (Novolog Insulin Pen) NOVOLOG *MILD* ALGORI... Q4 SC Last administered on 02/08/19 10:52; Admin Dose 1 UNIT; Start 01/29/19 at 05:00 Albuterol/ Ipratropium (Duoneb) 3 ml Q6HWA RESP THERAPY HHN Last administered on 02/08/19 08:23; Admin Dose 3 ML; Start 01/29/19 at 14:00 Epoetin Dae-epbx (RETACRIT(non-esrd)) 40,000 unit Mo@1700 SC Last administered on 02/03/19 18:12; Admin Dose 40,000 UNIT; Start 02/03/19 at 17:00 Mupirocin (Bactroban) 1 applic BID TOP Last administered on 02/08/19 10:43; Admin Dose 1 APPLIC; Start 01/30/19 at 15:26; Stop 02/09/19 at 15:25 Insulin Glargine (Lantus) 10 units DAILY@2000 SC Last administered on 02/07/19 20:40; Admin Dose 10 UNITS; Start 01/31/19 at 20:00 Aztreonam 1 gm/ Dextrose 50 ml @ 100 mls/hr Q12 IVPB Last administered on 02/08/19 10:36; Admin Dose 100 MLS/HR; Start 02/03/19 at 21:00 Vancomycin HCl 750 mg/Dextrose 250 ml @ 125 mls/hr Q48H IVPB Last administered on 02/06/19 23:16; Admin Dose 125 MLS/HR; Start 02/04/19 at 23:00 Metoprolol Tartrate (Lopressor) 12.5 mg BID PO Last administered on 02/08/19 10:42; Admin Dose 12.5 MG; Start 02/05/19 at 21:00 Eye Lubricant (Refresh Plus) 1 drop QID BOTH EYES Last administered on 02/08/19 10:41; Admin Dose 1 DROP; Start 02/06/19 at 09:00 Eye Lubricant (Akwa Oint) 1 applic HS LEFT EYE Last administered on 02/07/19 22:10; Admin Dose 1 APPLIC; Start 02/06/19 at 21:00 Potassium Chloride (Potassium Chloride Pwd/Soln) 20 meq BID NGT Last administered on 02/08/19 10:41; Admin Dose 20 MEQ; Start 02/06/19 at 21:00 Multi-Ingredient Ointment (Aquaphor Oint 52.5 Gm) 1 applic BID TOP Last administered on 02/08/19 10:44; Admin Dose 1 APPLIC; Start 02/06/19 at 22:40 Lansoprazole (Prevacid) 30 mg BID@0600,1800 NGT Last administered on 02/08/19 06:04; Admin Dose 30 MG; Start 02/07/19 at 18:00 Furosemide (Lasix) 20 mg DAILY IV Last administered on 02/08/19at 10:41; Admin Dose 20 MG; Start 02/07/19 at 16:00 Tobramycin Sulfate/Sodium Chloride (Nilesh Inhal) 300 mg BID RESP THERAPY NEB Last administered on 02/08/19at 08:23; Admin Dose 300 MG; Start 02/08/19 at 09:00 Miscellaneous Information (*Rx Drug Level Order Reminder*) VANCOMYCIN TROUGH AT 2200 ONCE ONCE XX ; Start 02/08/19 at 22:00; Stop 02/08/19 at 22:01 Assessment/Plan Hospital Course (Demo Recall) IMP: 1. s/p Acute hypoxemic respiratory failure likely secondary to combination of volume overload and pneumonia 2. Encephalopathy underlying dementia versus toxic metabolic, appears to be slowly improving possibly secondary to elevated sodium. 3. Valvular heart disease 4. Severe dysphagia 5. Status post septic shock likely secondary to above, persistent leukocytosis. 6. Anemia, no active GI bleeding 7. Skin diffuse excoriating skin lesion unclear etiology not consistent with history of "red man" syndrome. or pemphigus. 8. Anemia RECS: 1. Monitor respiratory status closely. 2. Continue broad-spectrum antibiotics 3. Infectious work-up as per ID 4. Consider further unit of PRBCs 5. Palliative care consult appreciated 6. Replete K+ and Mg, continue free water 7. Aspiration precautions, may require PEG tube placement Consider DNR CODE STATUS Overall prognosis remains guarded DIANA MCRAE MD, [facility] February 08, 2019 11:36
--- NOTE | 2019-02-08 13:42 | CONS ---
Consult Date/Type/Reason Admit Date/Time Jan 17, 2019 at 15:58 Initial Consult Date Type of Consultation: Pulm/CCM Requesting Provider: IVAN AKHTAR MD Date/Time of Note DATE: 02/08/19 TIME: 13:38 Subjective Pt out of ICD - confused - no clear improvement - rate controlled - in mild CHF by exam. ROS: No fever, no chills, no nausea, no vomiting, no diarrhea/constipation - desquamation, mild SOB Objective Vitals Vital Signs Date Temp Pulse Resp B/P (MAP) Pulse Ox O2 O2 Flow FiO2 Time Delivery Rate 02/08/19 71 12:57 02/08/19 98.7 16 112/50 98 Nasal 11:44 (70) Cannula 02/08/19 2.0 08:33 02/04/19 70 14:45 Intake and Output 02/07/19 02/07/19 02/08/19 1515:00 23:00 07:00 IntakeIntake Total 250 ml 1170 ml 1100 ml OutputOutput Total 1100 ml 1430 ml BalanceBalance 250 ml 70 ml -330 ml Exam General: WN/WD/NAD, AOx 0 confused HEENT: Unicetric/atraumatic/EOMI (does not follow commands) - NGT in NECK: JVD elevated, no thyromegaly Lymph: no lymphadenopathy HEART: regular with no S3, II/ systolic murmur at apex LUNGS: Coarse sounds ABD: soft, NT, ND, +BS : Intact Neuro: non focal SKIN: chronic changes, better now EXT: 1+ edema Results/Medications Result Diagram: 02/08/19 0602/08/19 0603 Results 24 hrs Laboratory Tests Test 02/07/19 16:34 02/07/19 20:28 02/08/19 01:49 02/08/19 04:58 Bedside Glucose 186 109 132 143 Test 02/08/19 06:03 02/08/19 10:51 White Blood Count 25.5 #H Red Blood Count 2.53 L Hemoglobin 7.4 L Hematocrit 23.5 L Mean Corpuscular 92.9 Volume Mean Corpuscular 29.2 Hemoglobin Mean Corpuscular 31.5 L Hemoglobin Concent Red Cell 21.4 H Distribution Width Platelet Count 122 L Mean Platelet Volume 13.7 H Immature 0.700 H Granulocytes % Neutrophils % 90.7 H Lymphocytes % 6.0 L Monocytes % 1.9 Eosinophils % 0.5 Basophils % 0.2 Nucleated Red Blood 0.2 H Cells % Immature 0.180 H Granulocytes # Neutrophils # 23.2 H Lymphocytes # 1.5 Monocytes # 0.5 Eosinophils # 0.1 Basophils # 0.0 Nucleated Red Blood 0.1 H Cells # Sodium Level 148 H Potassium Level 4.4 Chloride Level 117 H Carbon Dioxide Level 29 Anion Gap 2 L Blood Urea Nitrogen 61 H Creatinine 1.66 H Est Glomerular Filtrat Rate mL/min Glucose Level 125 # Calcium Level 7.4 L Bedside Glucose 147 Home Meds Active Scripts Apixaban* (Eliquis*) 5 Mg Tablet, 2.5 MG PO BID for 30 Days, TAB Prov:IVAN AKHTAR MD 12/20/18 Metoprolol Tartrate* (Lopressor*) 50 Mg Tab, 50 MG PO BID for 30 Days, TAB Prov:COOPER CARO 12/20/18 Reported Medications Furosemide* (Lasix*) 20 Mg Tablet, 20 MG PO BID, TAB 01/05/19 Polyethylene Glycol* (Miralax*) 17 Gm Powd.pack, 17 GM PO DAILY, #30 PACKET 12/15/18 Nifedipine* (Nifedipine ER*) 60 Mg Tablet.sa, 60 MG PO DAILY, TAB.SA 12/15/18 Bisacodyl* (Bisacodyl*) 5 Mg Tablet.dr, 10 MG PO BID PRN for CONSTIPATION, TAB 12/15/18 Pregabalin* (Lyrica*) 25 Mg Capsule, 25 MG PO TID, CAP 12/15/18 Bimatoprost* (Lumigan*) 0.01%-5 Ml Opht Drops, 1 DROP BOTH EYES HS, EA 03/02/18 Cetirizine Hcl* (Cetirizine Hcl*) 10 Mg Tablet, 10 MG PO DAILY, #30 TAB 03/02/18 Insulin Glargine* (Lantus*) 100 Unit/Ml Soln, 10 UNIT SC QHS, #1 VIAL 03/02/18 Ergocalciferol (Vitamin D2) (VITAMIN D2) 2,000 Unit Tablet, 2000 UNIT PO DAILY, TAB 03/02/18 Famotidine* (Famotidine*) 20 Mg Tablet, 20 MG PO DAILY, #30 TAB 03/02/18 Ferrous Sulfate* (Ferrous Sulfate*) 325 Mg Tabec, 325 MG PO BID, TAB 03/02/18 Nitroglycerin* (Nitrostat*) 0.4 Mg Tab.subl, 0.4 MG SL Q5MIN PRN for CHEST PAIN, BOTTLE 03/02/18 Terazosin Hcl* (Terazosin Hcl*) 10 Mg Capsule, 10 MG PO HS, CAP 03/02/18 Levothyroxine Sodium* (Levoxyl*) 125 Mcg Tablet, 125 MCG PO BEFORE BREAKFAST, #30 TAB 03/02/18 Allopurinol* (Allopurinol*) 100 Mg Tablet, 100 MG PO BID, TAB 03/02/18 Atorvastatin* (Atorvastatin*) 40 Mg Tablet, 40 MG PO QHS, #30 TAB 03/02/18 Folic Acid* (Folic Acid*) 1 Mg Tablet, 1 MG PO DAILY, TAB 03/02/18 Medications Current Medications Lactulose (Enulose) 20 gm DAILY PRN PO CONSTIPATION; Start 01/17/19 at 18:17 Acetaminophen (Tylenol Tab) 650 mg Q4H PRN PO PAIN Last administered on 01/23/19at 22:48; Admin Dose 650 MG; Start 01/17/19 at 18:17 Miscellaneous Information (Pending [facility] Order For Wound Care) This patient ramirez... PRN PRN XX WOUND CARE; Start 01/17/19 at 18:17 Albuterol/ Ipratropium (Duoneb) 3 ml Q2H RESP THERAPY PRN HHN SHORTNESS OF BREATH Last administered on 02/07/19at 05:45; Admin Dose 3 ML; Start 01/17/19 at 18:17 Bisacodyl (Dulcolax) 10 mg BID PRN PO CONSTIPATION; Start 01/17/19 at 18:17; Status Hold Folic Acid (Folic Acid) 1 mg DAILY PO Last administered on 02/08/19at 10:41; Admin Dose 1 MG; Start 01/17/19 at 18:17 Latanoprost (Xalatan) 1 drop HS BOTH EYES Last administered on 02/07/19at 22:09; Admin Dose 1 DROP; Start 01/17/19 at 18:17 Nitroglycerin (Nitroglycerin (Sl Tab) 0.4 Mg) 0.4 tab Q5M PRN SL CHEST PAIN; Start 01/17/19 at 18:17 Nystatin (Nystatin Powder) 1 applic BID TOP Last administered on 02/08/19at 10:43; Admin Dose 1 APPLIC; Start 01/17/19 at 18:17 IV Flush (NS 3 ml) 3 ml PER PROTOCOL IV ; Start 01/17/19 at 18:17 Miscellaneous Information 1 ea NOTE XX ; Start 01/17/19 at 18:17 Glucose (Glutose) 15 gm Q15M PRN PO DECREASED GLUCOSE; Start 01/17/19 at 18:17 Glucose (Glutose) 22.5 gm Q15M PRN PO DECREASED GLUCOSE; Start 01/17/19 at 18:17 Dextrose (D50w Syringe) 25 ml Q15M PRN IV DECREASED GLUCOSE Last administered on 02/05/19at 09:50; Admin Dose 25 ML; Start 01/17/19 at 18:17 Dextrose (D50w Syringe) 50 ml Q15M PRN IV DECREASED GLUCOSE; Start 01/17/19 at 18:17 Glucagon (Glucagen) 1 mg Q15M PRN IM DECREASED GLUCOSE; Start 01/17/19 at 18:17 Glucose (Glutose) 15 gm Q15M PRN BUCCAL DECREASED GLUCOSE; Start 01/17/19 at 18:17 Ascorbic Acid (Vitamin C) 250 mg DAILY PO Last administered on 02/08/19at 10:41; Admin Dose 250 MG; Start 01/17/19 at 18:17 Bisacodyl (Dulcolax Supp) 10 mg DAILY PRN [place] CONSTIPATION; Start 01/17/19 at 18:17 Zinc Acetate/ Diphenhydramine (Benadryl 2% Cr) 1 applic Q6H PRN TOP ITCHING Last administered on 01/26/19at 07:54; Admin Dose 1 APPLIC; Start 01/19/19 at 16:37 IV Flush (NS 10 ml) 10 ml PRN PRN IV IV PROTOCOL; Start 01/20/19 at 14:30 Cyanocobalamin (Vitamin B12 Inj) 1,000 mcg Q7D IM Last administered on 02/03/19at 08:14; Admin Dose 1,000 MCG; Start 02/03/19 at 09:00 Metoprolol Tartrate (Lopressor) 5 mg Q4H PRN IV HR>110 Hold SBP<100; Start 01/26/19 at 14:30 Vancomycin HCl (Vanco Iv Per Pharmacy) VANCOMYCIN PER PHARMACY PER PROTOCOL XX ; Start 01/27/19 at 12:00 Enoxaparin Sodium (Lovenox) 60 mg DAILY SC Last administered on 02/03/19 08:06; Admin Dose 60 MG; Start 01/28/19 at 09:00; Status Hold Lorazepam (Ativan) 1 mg Q2 PRN IV SEIZURES Last administered on 02/02/19 09:18; Admin Dose 1 MG; Start 01/27/19 at 14:00 Atorvastatin Calcium (Lipitor) 40 mg QHS NGT Last administered on 02/07/19 20:29; Admin Dose 40 MG; Start 01/28/19 at 21:00 Docusate Sodium (Colace Liquid Cup) 100 mg BID NGT ; Start 01/27/19 at 22:00; Status Hold Terazosin HCl (Hytrin) 10 mg HS NGT Last administered on 02/07/19 20:32; Admin Dose 10 MG; Start 01/28/19 at 21:00 Levetiracetam 100 ml @ 400 mls/hr Q12 IVPB Last administered on 02/08/19 10:36; Admin Dose 400 MLS/HR; Start 01/28/19 at 09:00 Levothyroxine Sodium (Synthroid) 125 mcg BEFORE BREAKFAST NGT Last administered on 02/08/19 10:41; Admin Dose 125 MCG; Start 01/28/19 at 07:00 Ferrous Sulfate (Feosol Liquid Cup) 300 mg WITH MEALS GTB Last administered on 02/08/19 10:49; Admin Dose 300 MG; Start 01/28/19 at 11:30 Multivitamins (Multivitamin) 30 ml DAILY GTB Last administered on 02/08/19 10:40; Admin Dose 30 ML; Start 01/28/19 at 11:00 Diagnostic Test (Pha) (Accu-Chek) 1 ea Q4 XX Last administered on 02/08/19 09:00; Admin Dose 1 EA; Start 01/28/19 at 13:00 Nystatin/ Triamcinolone Acetonide (Mycolog Oint) 1 applic BID TOP Last administered on 02/08/19 10:43; Admin Dose 1 APPLIC; Start 01/28/19 at 22:30 Insulin Aspart (Novolog Insulin Pen) NOVOLOG *MILD* ALGORI... Q4 SC Last administered on 02/08/19 10:52; Admin Dose 1 UNIT; Start 01/29/19 at 05:00 Albuterol/ Ipratropium (Duoneb) 3 ml Q6HWA RESP THERAPY HHN Last administered on 02/08/19 13:29; Admin Dose 3 ML; Start 01/29/19 at 14:00 Epoetin Dae-epbx (RETACRIT(non-esrd)) 40,000 unit Mo@1700 SC Last administered on 02/03/19 18:12; Admin Dose 40,000 UNIT; Start 02/03/19 at 17:00 Mupirocin (Bactroban) 1 applic BID TOP Last administered on 02/08/19 10:43; Admin Dose 1 APPLIC; Start 01/30/19 at 15:26; Stop 02/09/19 at 15:25 Insulin Glargine (Lantus) 10 units DAILY@2000 SC Last administered on 02/07/19 20:40; Admin Dose 10 UNITS; Start 01/31/19 at 20:00 Aztreonam 1 gm/ Dextrose 50 ml @ 100 mls/hr Q12 IVPB Last administered on 02/08/19 10:36; Admin Dose 100 MLS/HR; Start 02/03/19 at 21:00 Vancomycin HCl 750 mg/Dextrose 250 ml @ 125 mls/hr Q48H IVPB Last administered on 02/06/19 23:16; Admin Dose 125 MLS/HR; Start 02/04/19 at 23:00 Metoprolol Tartrate (Lopressor) 12.5 mg BID PO Last administered on 02/08/19 10:42; Admin Dose 12.5 MG; Start 02/05/19 at 21:00 Eye Lubricant (Refresh Plus) 1 drop QID BOTH EYES Last administered on 02/08/19 10:41; Admin Dose 1 DROP; Start 02/06/19 at 09:00 Eye Lubricant (Akwa Oint) 1 applic HS LEFT EYE Last administered on 02/07/19 22:10; Admin Dose 1 APPLIC; Start 02/06/19 at 21:00 Potassium Chloride (Potassium Chloride Pwd/Soln) 20 meq BID NGT Last administered on 5/18/19at 10:41; Admin Dose 20 MEQ; Start 02/06/19 at 21:00 Multi-Ingredient Ointment (Aquaphor Oint 52.5 Gm) 1 applic BID TOP Last administered on 02/08/19at 10:44; Admin Dose 1 APPLIC; Start 02/06/19 at 22:40 Lansoprazole (Prevacid) 30 mg BID@0600,1800 NGT Last administered on 02/08/19at 06:04; Admin Dose 30 MG; Start 02/07/19 at 18:00 Furosemide (Lasix) 20 mg DAILY IV Last administered on 02/08/19at 10:41; Admin Dose 20 MG; Start 02/07/19 at 16:00 Tobramycin Sulfate/Sodium Chloride (Nilesh Inhal) 300 mg BID RESP THERAPY NEB Last administered on 02/08/19at 08:23; Admin Dose 300 MG; Start 02/08/19 at 09:00 Miscellaneous Information (*Rx Drug Level Order Reminder*) VANCOMYCIN TROUGH AT 2200 ONCE ONCE XX ; Start 02/08/19 at 22:00; Stop 02/08/19 at 22:01 Assessment/Plan Hospital Course (Demo Recall) 1. Atrial fibrillation, currently rate controlled.-off systemic anticoagulation due to anemia. On ASA only now - RATE CONTROLLED. now in a. fib. At 100s - will allow for now. Wll allow for now. Eliquis dosed. 2. CHF - chronic, DD. EF of 60%.Spot diuresis as needed. Con't to follow. Increased fluid status- hold hydration now. 3. Tricuspid regurgitation, moderate by most recent echo. 4. Acute on chronic renal failure - Cr up to 1.66 - avoid nephrotoxic meds. Dr. Alatorre follow. Stable. Reasonable urine output. Might be new baseline. 5. Hyponatremia - going up to 160s - check am cortisol level. 5. Possible pneumonia - on anti-bx now. ID follows On pressors now. 6. History of coronary artery disease, status post coronary artery bypass graft surgery. Treated. 7. Dyslipidemia. 8. Rheumatoid arthritis - Rx per rheumatology. 9. Groin cellulitis. 10. Anemia-worsening again today requiring transfusions - trending down, will monitor. 11. Diabetes mellitus. 12. Sepsis - skin looks better. LOU PATINO MD February 08, 2019 13:42
--- NOTE | 2019-02-08 14:02 | CONS ---
Assessment/Plan Assessment/Plan Assessment/Plan (Daily) 88 yo male with multiple medical problems including DM, CRF, RA, PVD and chronic afib on Eliquis who [facility] with severe normocytic anemia and Hg ~7. 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 # Anemia-normocytic Hgb 7.4 today -Hg > 7 currently -Multifactorial at this time due to iron deficiency, vitamin b12 deficiency and also likely anemia of chronic kidney disease and inflammation. Elevated Methylmalonic acid level noted -Patient still has low iron level even though ferritin is elevated. Ferritin likely elevated due to acute phase reactant. pt is now s/p IV iron. Pt is s/p EGD and colonoscopy by Dr Frost 01/09/19 which didn't find an obvious GI etiology to explain anemia. AVM or a small lesion could be missed due to poor prep. Pt likely needs capsule endoscopy -continue vitamin b12 weekly as vitamin b12 was low normal and methylmalonic acid was elevated. Continue folate as well. -No evidence of hemolysis at this time. -Transfuse to keep Hgb > 7. 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 -This may be a pseudocyst or a precancerous pancreatic lesion. -It has been growing in size but patient is asymptomatic. EUS with biopsy is recommended and can either be done inpatient or outpatient setting. -The patient at this time is unlikely a candidate for a whipple surgery however. Patient seen in collaboration with Dr King/ [facility] staff Consultation Date/Type/Reason Admit Date/Time Jan 17, 2019 at 15:58 Initial Consult Date 01/18/19 Type of Consult oncology Reason for Consultation ANEMIA/PANCREATIC MASS/CYST Requesting Provider: IVAN AKHTAR MD Date/Time of Note DATE: 02/08/19 TIME: 14:02 24 HR Interval Summary Free Text/Dictation plan for GT placement no new issues reported overnight Hgb 7.4 today Constitutional: requiring O2 Exam/Review of Systems Exam Vitals Vital Signs Date Temp Pulse Resp B/P (MAP) Pulse Ox O2 O2 Flow FiO2 Time Delivery Rate 5/18/19 78 20 100 Nasal 2.0 13:38 Cannula 02/08/19 98.7 112/50 11:44 (70) 02/04/19 70 14:45 Intake and Output 02/07/19 02/07/19 02/08/19 1515:00 23:00 07:00 IntakeIntake Total 250 ml 1170 ml 1100 ml OutputOutput Total 1100 ml 1430 ml BalanceBalance 250 ml 70 ml -330 ml Constitutional: alert, well developed Psych: nl mood/affect Eyes: nl lids, nl sclera ENMT: nl external ears & nose Neck: non-tender Respiratory: clear to auscultation Cardiovascular: nl pulses, edema, other (S1S2) Gastrointestinal: non-tender Musculoskeletal: muscle weakness Extremities: edema Neurological: confused Skin: rash or lesions, other Lymph: nontender Results Result Diagram: 02/08/19 0603 02/08/19 0603 Results 24hrs Laboratory Tests Test 02/07/19 16:34 02/07/19 20:28 02/08/19 01:49 02/08/19 04:58 Bedside Glucose 186 109 132 143 Test 02/08/19 06:03 02/08/19 10:51 02/08/19 13:41 White Blood Count 25.5 #H Red Blood Count 2.53 L Hemoglobin 7.4 L Hematocrit 23.5 L Mean Corpuscular 92.9 Volume Mean Corpuscular 29.2 Hemoglobin Mean Corpuscular 31.5 L Hemoglobin Concent Red Cell 21.4 H Distribution Width Platelet Count 122 L Mean Platelet Volume 13.7 H Immature 0.700 H Granulocytes % Neutrophils % 90.7 H Lymphocytes % 6.0 L Monocytes % 1.9 Eosinophils % 0.5 Basophils % 0.2 Nucleated Red Blood 0.2 H Cells % Immature 0.180 H Granulocytes # Neutrophils # 23.2 H Lymphocytes # 1.5 Monocytes # 0.5 Eosinophils # 0.1 Basophils # 0.0 Nucleated Red Blood 0.1 H Cells # Sodium Level 148 H Potassium Level 4.4 Chloride Level 117 H Carbon Dioxide Level 29 Anion Gap 2 L Blood Urea Nitrogen 61 H Creatinine 1.66 H Est Glomerular Filtrat Rate mL/min Glucose Level 125 # Calcium Level 7.4 L Bedside Glucose 147 131 Medications Medication Current Medications Lactulose (Enulose) 20 gm DAILY PRN PO CONSTIPATION; Start 4/26/19 at 18:17 Acetaminophen (Tylenol Tab) 650 mg Q4H PRN PO PAIN Last administered on 01/23/19at 22:48; Admin Dose 650 MG; Start 01/17/19 at 18:17 Miscellaneous Information (Pending [facility] Order For Wound Care) This patient ramirez... PRN PRN XX WOUND CARE; Start 01/17/19 at 18:17 Albuterol/ Ipratropium (Duoneb) 3 ml Q2H RESP THERAPY PRN HHN SHORTNESS OF BREATH Last administered on 02/07/19at 05:45; Admin Dose 3 ML; Start 01/17/19 at 18:17 Bisacodyl (Dulcolax) 10 mg BID PRN PO CONSTIPATION; Start 01/17/19 at 18:17; Status Hold Folic Acid (Folic Acid) 1 mg DAILY PO Last administered on 02/08/19at 10:41; Admin Dose 1 MG; Start 01/17/19 at 18:17 Latanoprost (Xalatan) 1 drop HS BOTH EYES Last administered on 02/07/19at 22:09; Admin Dose 1 DROP; Start 01/17/19 at 18:17 Nitroglycerin (Nitroglycerin (Sl Tab) 0.4 Mg) 0.4 tab Q5M PRN SL CHEST PAIN; Start 01/17/19 at 18:17 Nystatin (Nystatin Powder) 1 applic BID TOP Last administered on 02/08/19at 10:43; Admin Dose 1 APPLIC; Start 01/17/19 at 18:17 IV Flush (NS 3 ml) 3 ml PER PROTOCOL IV ; Start 01/17/19 at 18:17 Miscellaneous Information 1 ea NOTE XX ; Start 01/17/19 at 18:17 Glucose (Glutose) 15 gm Q15M PRN PO DECREASED GLUCOSE; Start 01/17/19 at 18:17 Glucose (Glutose) 22.5 gm Q15M PRN PO DECREASED GLUCOSE; Start 01/17/19 at 18:17 Dextrose (D50w Syringe) 25 ml Q15M PRN IV DECREASED GLUCOSE Last administered on 02/05/19at 09:50; Admin Dose 25 ML; Start 01/17/19 at 18:17 Dextrose (D50w Syringe) 50 ml Q15M PRN IV DECREASED GLUCOSE; Start 01/17/19 at 18:17 Glucagon (Glucagen) 1 mg Q15M PRN IM DECREASED GLUCOSE; Start 01/17/19 at 18:17 Glucose (Glutose) 15 gm Q15M PRN BUCCAL DECREASED GLUCOSE; Start 01/17/19 at 18:17 Ascorbic Acid (Vitamin C) 250 mg DAILY PO Last administered on 02/08/19at 10:41; Admin Dose 250 MG; Start 01/17/19 at 18:17 Bisacodyl (Dulcolax Supp) 10 mg DAILY PRN [place] CONSTIPATION; Start 01/17/19 at 18:17 Zinc Acetate/ Diphenhydramine (Benadryl 2% Cr) 1 applic Q6H PRN TOP ITCHING Last administered on 01/26/19at 07:54; Admin Dose 1 APPLIC; Start 01/19/19 at 16:37 IV Flush (NS 10 ml) 10 ml PRN PRN IV IV PROTOCOL; Start 01/20/19 at 14:30 Cyanocobalamin (Vitamin B12 Inj) 1,000 mcg Q7D IM Last administered on 02/03/19at 08:14; Admin Dose 1,000 MCG; Start 02/03/19 at 09:00 Metoprolol Tartrate (Lopressor) 5 mg Q4H PRN IV HR>110 Hold SBP<100; Start 01/26/19 at 14:30 Vancomycin HCl (Vanco Iv Per Pharmacy) VANCOMYCIN PER PHARMACY PER PROTOCOL XX ; Start 01/27/19 at 12:00 Enoxaparin Sodium (Lovenox) 60 mg DAILY SC Last administered on 02/03/19at 08:06; Admin Dose 60 MG; Start 01/28/19 at 09:00; Status Hold Lorazepam (Ativan) 1 mg Q2 PRN IV SEIZURES Last administered on 02/02/19at 09:18; Admin Dose 1 MG; Start 01/27/19 at 14:00 Atorvastatin Calcium (Lipitor) 40 mg QHS NGT Last administered on 02/07/19at 20:29; Admin Dose 40 MG; Start 01/28/19 at 21:00 Docusate Sodium (Colace Liquid Cup) 100 mg BID NGT ; Start 01/27/19 at 22:00; Status Hold Terazosin HCl (Hytrin) 10 mg HS NGT Last administered on 02/07/19at 20:32; Admin Dose 10 MG; Start 01/28/19 at 21:00 Levetiracetam 100 ml @ 400 mls/hr Q12 IVPB Last administered on 02/08/19 10:36; Admin Dose 400 MLS/HR; Start 01/28/19 at 09:00 Levothyroxine Sodium (Synthroid) 125 mcg BEFORE BREAKFAST NGT Last administered on 02/08/19 10:41; Admin Dose 125 MCG; Start 01/28/19 at 07:00 Ferrous Sulfate (Feosol Liquid Cup) 300 mg WITH MEALS GTB Last administered on 02/08/19 10:49; Admin Dose 300 MG; Start 01/28/19 at 11:30 Multivitamins (Multivitamin) 30 ml DAILY GTB Last administered on 02/08/19 10:40; Admin Dose 30 ML; Start 01/28/19 at 11:00 Diagnostic Test (Pha) (Accu-Chek) 1 ea Q4 XX Last administered on 02/08/19 13:42; Admin Dose 1 EA; Start 01/28/19 at 13:00 Nystatin/ Triamcinolone Acetonide (Mycolog Oint) 1 applic BID TOP Last administered on 02/08/19 10:43; Admin Dose 1 APPLIC; Start 01/28/19 at 22:30 Insulin Aspart (Novolog Insulin Pen) NOVOLOG *MILD* ALGORI... Q4 SC Last administered on 02/08/19 10:52; Admin Dose 1 UNIT; Start 01/29/19 at 05:00 Albuterol/ Ipratropium (Duoneb) 3 ml Q6HWA RESP THERAPY HHN Last administered on 02/08/19 13:29; Admin Dose 3 ML; Start 01/29/19 at 14:00 Epoetin Dae-epbx (RETACRIT(non-esrd)) 40,000 unit Mo@1700 SC Last administered on 02/03/19 18:12; Admin Dose 40,000 UNIT; Start 02/03/19 at 17:00 Mupirocin (Bactroban) 1 applic BID TOP Last administered on 02/08/19 10:43; Admin Dose 1 APPLIC; Start 01/30/19 at 15:26; Stop 02/09/19 at 15:25 Insulin Glargine (Lantus) 10 units DAILY@2000 SC Last administered on 02/07/19 20:40; Admin Dose 10 UNITS; Start 01/31/19 at 20:00 Aztreonam 1 gm/ Dextrose 50 ml @ 100 mls/hr Q12 IVPB Last administered on 02/08/19 10:36; Admin Dose 100 MLS/HR; Start 02/03/19 at 21:00 Vancomycin HCl 750 mg/Dextrose 250 ml @ 125 mls/hr Q48H IVPB Last administered on 02/06/19 23:16; Admin Dose 125 MLS/HR; Start 02/04/19 at 23:00 Metoprolol Tartrate (Lopressor) 12.5 mg BID PO Last administered on 02/08/19 1 0:42; Admin Dose 12.5 MG; Start 02/05/19 at 21:00 Eye Lubricant (Refresh Plus) 1 drop QID BOTH EYES Last administered on 02/08/19 13:44; Admin Dose 1 DROP; Start 02/06/19 at 09:00 Eye Lubricant (Akwa Oint) 1 applic HS LEFT EYE Last administered on 02/07/19 22:10; Admin Dose 1 APPLIC; Start 02/06/19 at 21:00 Potassium Chloride (Potassium Chloride Pwd/Soln) 20 meq BID NGT Last administered on 02/08/19 10:41; Admin Dose 20 MEQ; Start 02/06/19 at 21:00 Multi-Ingredient Ointment (Aquaphor Oint 52.5 Gm) 1 applic BID TOP Last administered on 02/08/19 10:44; Admin Dose 1 APPLIC; Start 02/06/19 at 22:40 Lansoprazole (Prevacid) 30 mg BID@0600,1800 NGT Last administered on 02/08/19 06:04; Admin Dose 30 MG; Start 02/07/19 at 18:00 Furosemide (Lasix) 20 mg DAILY IV Last administered on 02/08/19 10:41; Admin Dose 20 MG; Start 02/07/19 at 16:00 Tobramycin Sulfate/Sodium Chloride (Nilesh Inhal) 300 mg BID RESP THERAPY NEB Last administered on 02/08/19 08:23; Admin Dose 300 MG; Start 02/08/19 at 09:00 Miscellaneous Information (*Rx Drug Level Order Reminder*) VANCOMYCIN TROUGH AT 2200 ONCE ONCE XX ; Start 02/08/19 at 22:00; Stop 02/08/19 at 22:01 JESI GATES February 08, 2019 14:02
[2019-02-08] MEDS ORDERED: morphine 2 MG INJ IV PRN (19:00)
--- NOTE | 2019-02-08 19:55 | CONS ---
Assessment/Plan Assessment/Plan Assessment/Plan (Daily) Very ill gentleman who is been admitted to the intensive care unit with sepsis syndrome elevated white blood cell count lactic acidosis, abnormal chest x-ray. History of chronic renal failure. Serious comorbid medical problems indicating a poor outcome including good mental status, low total protein albumin levels multiple comorbid medical problems possible history of immunosuppression seconda ry to rheumatoid arthritis. It is unknown whether not patient was on immune modulators targeted therapy prior to hospitalization. No major changes over the last 24 hours, however today he is mumbling and states that his left arm is in pain. Patient is still receiving aggressive care patient's daughter has avoided me and change his CODE STATUS back to full code Consultation Date/Type/Reason Admit Date/Time Jan 17, 2019 at 15:58 Initial Consult Date 01/18/19 Requesting Provider: IVAN AKHTAR MD Date/Time of Note DATE: 02/08/19 TIME: 19:53 Exam/Review of Systems Exam Vitals Vital Signs Date Temp Pulse Resp B/P (MAP) Pulse Ox O2 O2 Flow FiO2 Time Delivery Rate 02/08/19 98.4 77 18 114/78 98 Nasal 16:56 (90) Cannula 02/08/19 2.0 15:28 02/04/19 70 14:45 Intake and Output 02/07/19 02/07/19 02/08/19 1414:59 22:59 06:59 IntakeIntake Total 250 ml 1170 ml 1100 ml OutputOutput Total 1100 ml 1430 ml BalanceBalance 250 ml 70 ml -330 ml Constitutional: non-verbal, frail, other (Mumbling) Neck: supple, non-tender Respiratory: clear to auscultation, normal air movement Cardiovascular: regular rate and rhythm, nl pulses Neurological: confused, lethargic Results Result Diagram: 02/08/19 0603 02/08/19 0603 Results 24hrs Laboratory Tests Test 02/07/19 20:28 02/08/19 01:49 02/08/19 04:58 02/08/19 06:03 Bedside Glucose 109 132 143 White Blood Count 25.5 #H Red Blood Count 2.53 L Hemoglobin 7.4 L Hematocrit 23.5 L Mean Corpuscular 92.9 Volume Mean Corpuscular 29.2 Hemoglobin Mean Corpuscular 31.5 L Hemoglobin Concent Red Cell 21.4 H Distribution Width Platelet Count 122 L Mean Platelet Volume 13.7 H Immature 0.700 H Granulocytes % Neutrophils % 90.7 H Lymphocytes % 6.0 L Monocytes % 1.9 Eosinophils % 0.5 Basophils % 0.2 Nucleated Red Blood 0.2 H Cells % Immature 0.180 H Granulocytes # Neutrophils # 23.2 H Lymphocytes # 1.5 Monocytes # 0.5 Eosinophils # 0.1 Basophils # 0.0 Nucleated Red Blood 0.1 H Cells # Sodium Level 148 H Potassium Level 4.4 Chloride Level 117 H Carbon Dioxide Level 29 Anion Gap 2 L Blood Urea Nitrogen 61 H Creatinine 1.66 H Est Glomerular Filtrat Rate mL/min Glucose Level 125 # Calcium Level 7.4 L Test 02/08/19 10:51 02/08/19 13:41 02/08/19 18:45 Bedside Glucose 147 131 138 Medications Medication Current Medications Lactulose (Enulose) 20 gm DAILY PRN PO CONSTIPATION; Start 01/17/19 at 18:17 Acetaminophen (Tylenol Tab) 650 mg Q4H PRN PO PAIN Last administered on 01/23/19at 22:48; Admin Dose 650 MG; Start 01/17/19 at 18:17 Miscellaneous Information [facility] This patient ramirez... PRN PRN XX WOUND CARE; Start 01/17/19 at 18:17 Albuterol/ Ipratropium (Duoneb) 3 ml Q2H RESP THERAPY PRN HHN SHORTNESS OF BREATH Last administered on 02/07/19at 05:45; Admin Dose 3 ML; Start 01/17/19 at 18:17 Bisacodyl (Dulcolax) 10 mg BID PRN PO CONSTIPATION; Start 01/17/19 at 18:17; Status Hold Folic Acid (Folic Acid) 1 mg DAILY PO Last administered on 02/08/19at 10:41; Admin Dose 1 MG; Start 01/17/19 at 18:17 Latanoprost (Xalatan) 1 drop HS BOTH EYES Last administered on 02/07/19at 22:09; Admin Dose 1 DROP; Start 01/17/19 at 18:17 Nitroglycerin (Nitroglycerin (Sl Tab) 0.4 Mg) 0.4 tab Q5M PRN SL CHEST PAIN; Start 01/17/19 at 18:17 Nystatin (Nystatin Powder) 1 applic BID TOP Last administered on 02/08/19at 10:43; Admin Dose 1 APPLIC; Start 01/17/19 at 18:17 IV Flush (NS 3 ml) 3 ml PER PROTOCOL IV ; Start 01/17/19 at 18:17 Miscellaneous Information 1 ea NOTE XX ; Start 01/17/19 at 18:17 Glucose (Glutose) 15 gm Q15M PRN PO DECREASED GLUCOSE; Start 01/17/19 at 18:17 Glucose (Glutose) 22.5 gm Q15M PRN PO DECREASED GLUCOSE; Start 01/17/19 at 18:17 Dextrose (D50w Syringe) 25 ml Q15M PRN IV DECREASED GLUCOSE Last administered on 02/05/19at 09:50; Admin Dose 25 ML; Start 01/17/19 at 18:17 Dextrose (D50w Syringe) 50 ml Q15M PRN IV DECREASED GLUCOSE; Start 01/17/19 at 18:17 Glucagon (Glucagen) 1 mg Q15M PRN IM DECREASED GLUCOSE; Start 01/17/19 at 18:17 Glucose (Glutose) 15 gm Q15M PRN BUCCAL DECREASED GLUCOSE; Start 01/17/19 at 18:17 Ascorbic Acid (Vitamin C) 250 mg DAILY PO Last administered on 02/08/19at 10:41; Admin Dose 250 MG; Start 01/17/19 at 18:17 Bisacodyl (Dulcolax Supp) 10 mg DAILY PRN [place] CONSTIPATION; Start 01/17/19 at 18:17 Zinc Acetate/ Diphenhydramine (Benadryl 2% Cr) 1 applic Q6H PRN TOP ITCHING Last administered on 01/26/19at 07:54; Admin Dose 1 APPLIC; Start 01/19/19 at 16:37 IV Flush (NS 10 ml) 10 ml PRN PRN IV IV PROTOCOL; Start 01/20/19 at 14:30 Cyanocobalamin (Vitamin B12 Inj) 1,000 mcg Q7D IM Last administered on 02/03/19at 08:14; Admin Dose 1,000 MCG; Start 02/03/19 at 09:00 Metoprolol Tartrate (Lopressor) 5 mg Q4H PRN IV HR>110 Hold SBP<100; Start 01/26/19 at 14:30 Vancomycin HCl (Vanco Iv Per Pharmacy) VANCOMYCIN PER PHARMACY PER PROTOCOL XX ; Start 01/27/19 at 12:00 Enoxaparin Sodium (Lovenox) 60 mg DAILY SC Last administered on 02/03/19 08:06; Admin Dose 60 MG; Start 01/28/19 at 09:00; Status Hold Lorazepam (Ativan) 1 mg Q2 PRN IV SEIZURES Last administered on 02/02/19 09:18; Admin Dose 1 MG; Start 01/27/19 at 14:00 Atorvastatin Calcium (Lipitor) 40 mg QHS NGT Last administered on 02/07/19 20:29; Admin Dose 40 MG; Start 01/28/19 at 21:00 Docusate Sodium (Colace Liquid Cup) 100 mg BID NGT ; Start 01/27/19 at 22:00; Status Hold Terazosin HCl (Hytrin) 10 mg HS NGT Last administered on 02/07/19 20:32; Admin Dose 10 MG; Start 01/28/19 at 21:00 Levetiracetam 100 ml @ 400 mls/hr Q12 IVPB Last administered on 02/08/19 10:36; Admin Dose 400 MLS/HR; Start 01/28/19 at 09:00 Levothyroxine Sodium (Synthroid) 125 mcg BEFORE BREAKFAST NGT Last administered on 02/08/19 10:41; Admin Dose 125 MCG; Start 01/28/19 at 07:00 Ferrous Sulfate (Feosol Liquid Cup) 300 mg WITH MEALS GTB Last administered on 02/08/19 18:46; Admin Dose 300 MG; Start 01/28/19 at 11:30 Multivitamins (Multivitamin) 30 ml DAILY GTB Last administered on 02/08/19 10:40; Admin Dose 30 ML; Start 01/28/19 at 11:00 Diagnostic Test (Pha) (Accu-Chek) 1 ea Q4 XX Last administered on 02/08/19 17:00; Admin Dose 1 EA; Start 01/28/19 at 13:00 Nystatin/ Triamcinolone Acetonide (Mycolog Oint) 1 applic BID TOP Last administered on 02/08/19 10:43; Admin Dose 1 APPLIC; Start 01/28/19 at 22:30 Insulin Aspart (Novolog Insulin Pen) NOVOLOG *MILD* ALGORI... Q4 SC Last administered on 02/08/19 10:52; Admin Dose 1 UNIT; Start 01/29/19 at 05:00 Albuterol/ Ipratropium (Duoneb) 3 ml Q6HWA RESP THERAPY HHN Last administered on 02/08/19 19:50; Admin Dose 3 ML; Start 01/29/19 at 14:00 Epoetin Dae-epbx (RETACRIT(non-esrd)) 40,000 unit Mo@1700 SC Last administered on 02/03/19 18:12; Admin Dose 40,000 UNIT; Start 02/03/19 at 17:00 Mupirocin (Bactroban) 1 applic BID TOP Last administered on 02/08/19 10:43; Admin Dose 1 APPLIC; Start 01/30/19 at 15:26; Stop 02/09/19 at 15:25 Insulin Glargine (Lantus) 10 units DAILY@2000 SC Last administered on 02/07/19 20:40; Admin Dose 10 UNITS; Start 01/31/19 at 20:00 Aztreonam 1 gm/ Dextrose 50 ml @ 100 mls/hr Q12 IVPB Last administered on 02/08/19 10:36; Admin Dose 100 MLS/HR; Start 02/03/19 at 21:00 Vancomycin HCl 750 mg/Dextrose 250 ml @ 125 mls/hr Q48H IVPB Last administered on 02/06/19 23:16; Admin Dose 125 MLS/HR; Start 02/04/19 at 23:00 Metoprolol Tartrate (Lopressor) 12.5 mg BID PO Last administered on 02/08/19 10:42; Admin Dose 12.5 MG; Start 02/05/19 at 21:00 Eye Lubricant (Refresh Plus) 1 drop QID BOTH EYES Last administered on 02/08/19 18:47; Admin Dose 1 DROP; Start 02/06/19 at 09:00 Eye Lubricant (Akwa Oint) 1 applic HS LEFT EYE Last administered on 02/07/19 22:10; Admin Dose 1 APPLIC; Start 02/06/19 at 21:00 Potassium Chloride (Potassium Chloride Pwd/Soln) 20 meq BID NGT Last administered on 02/08/19 10:41; Admin Dose 20 MEQ; Start 02/06/19 at 21:00 Multi-Ingredient Ointment (Aquaphor Oint 52.5 Gm) 1 applic BID TOP Last administered on 02/08/19at 10:44; Admin Dose 1 APPLIC; Start 02/06/19 at 22:40 Lansoprazole (Prevacid) 30 mg BID@0600,1800 NGT Last administered on 02/08/19at 18:50; Admin Dose 30 MG; Start 02/07/19 at 18:00 Tobramycin Sulfate/Sodium Chloride (Nilesh Inhal) 300 mg BID RESP THERAPY NEB Last administered on 02/08/19at 19:50; Admin Dose 300 MG; Start 02/08/19 at 09:00 Miscellaneous Information (*Rx Drug Level Order Reminder*) VANCOMYCIN TROUGH AT 2200 ONCE ONCE XX ; Start 02/08/19 at 22:00; Stop 02/08/19 at 22:01 Furosemide (Lasix) 20 mg BID DIURETICS IV Last administered on 02/08/19at 18:49; Admin Dose 20 MG; Start 02/08/19 at 18:00 Morphine Sulfate (morphine) 0.5 mg Q4H PRN IV SEVERE PAIN LEVEL 7-10; Start 02/08/19 at 19:00 MARGARITO WILSON February 08, 2019 19:55
[2019-02-08] MEDS: INSULIN GLARGINE [LANTus] (100 UNITS/ML) SYG SC SCH (20:00)
[2019-02-08] MEDS: ATORVASTATIN 40 MG TAB NGT SCH (21:56)
[2019-02-08] MEDS: LATANOPROST 0.005% 2.5 ML OPH BOTH EYES SCH (21:57)
[2019-02-08] MEDS: OCULAR LUBRICANT 3.5 GM OPH OINT LEFT EYE SCH (21:57)
[2019-02-08] MEDS: TERAZOSIN 5 MG CAP NGT SCH (22:27)
[2019-02-09] VITALS (13 sets, daily range): BP systolic 96–123; BP diastolic 39–53; PULSE 70–86; RESP 16–20
[2019-02-09] MEDS: ACCU-CHEK XX SCH ×6 (01:00→21:00)
[2019-02-09] MEDS: NYSTATIN/TRIAMCINOLONE 15 GM OINT TOP SCH ×3 (01:41→21:13)
[2019-02-09] MEDS: NYSTATIN 30 GM POWDER BTL TOP SCH ×3 (01:41→21:11)
[2019-02-09] MEDS: AQUAPHOR 52.5 GM OINT TOP SCH ×3 (01:41→21:00)
[2019-02-09] MEDS: INSULIN ASPART [NOVOLOG] 3 ML PEN SC SCH ×6 (01:46→21:00)
[2019-02-09] MEDS: LORAZEPAM 2 MG INJ IV PRN (04:51)
[2019-02-09] MEDS: LEVOTHYROXINE 125 MCG TAB NGT SCH (06:02)
[2019-02-09] MEDS: FUROSEMIDE 20 MG INJ IV SCH ×2 (06:03→18:13)
[2019-02-09] MEDS: LANSOPRAZOLE 30 MG CAP NGT SCH ×2 (06:13→18:12)
[2019-02-09] MEDS: POTASSIUM CHLORIDE 20 MEQ POWDER FOR ORAL SOLN NGT SCH ×2 (08:13→21:02)
[2019-02-09] MEDS: MULTIVITAMINS 30 ML CUP GTB SCH (08:13)
[2019-02-09] MEDS: LEVETIRACETAM 500 MG (PMX) 100 ML IVPB SCH ×2 (08:14→20:57)
[2019-02-09] MEDS: FERROUS SULFATE 60 MG/ML 5ML CUP GTB SCH ×3 (08:14→18:12)
[2019-02-09] MEDS: METOPROLOL 25 MG TAB PO SCH ×2 (08:14→20:59)
[2019-02-09] MEDS: CARBOXYMETHYLCELLULOSE 0.5% 0.4 ML OPH BOTH EYES SCH ×4 (08:14→20:58)
[2019-02-09] MEDS: BALSAM PERU/CASTOR OIL 60 GM TUBE TOP SCH ×2 (08:15→21:11)
[2019-02-09] MEDS: FOLIC ACID 1 MG TAB PO SCH (08:16)
[2019-02-09] MEDS: ASCORBIC ACID 250 MG TAB PO SCH (08:16)
[2019-02-09] MEDS: MUPIROCIN 2% 22 GM OINT TOP SCH (08:17)
[2019-02-09] MEDS: TOBRAMYCIN/0.25NS 300 MG/5 ML INHAL NEB SCH ×2 (08:26→19:53)
[2019-02-09] MEDS: ALBUTEROL/IPRATROPIUM (NEB) 3 ML AMP HHN SCH ×3 (08:26→19:53)
[2019-02-09] MEDS: AZTREONAM 1 GM in DEXTROSE 5% 50 ML IVPB SCH ×2 (10:01→21:40)
--- NOTE | 2019-02-09 11:43 | CONS ---
Consult Date/Type/Reason Admit Date/Time Jan 17, 2019 at 15:58 Initial Consult Date 01/18/19 Type of Consult Pulmonary Requesting Provider: IVAN AKHTAR MD Date/Time of Note DATE: 02/09/19 TIME: 11:42 Subjective No significant changes. Appreciate palliative care recommendations. Objective Vital Signs Date Temp Pulse Resp B/P (MAP) Pulse Ox O2 O2 Flow FiO2 Time Delivery Rate 02/09/19 78 20 98 Nasal 2.0 08:35 Cannula 02/09/19 98.7 123/51 07:17 (75) Intake and Output 02/08/19 02/08/19 02/09/19 1515:00 23:00 07:00 IntakeIntake Total 1020 ml 810 ml OutputOutput Total 850 ml 900 ml BalanceBalance 170 ml -90 ml Exam GENERAL: Frail elderly gentleman comfortable at rest on nasal cannula VITAL SIGNS: per chart NECK: Supple. No JVD or lymphadenopathy. CARDIAC EXAM: S1, S2. No added sounds or murmurs. CHEST: Diminished air entry both bases ABDOMEN: Soft, nontender. No guarding or rebound. EXTREMITIES: No cyanosis, clubbing edema +2 NEUROLOGIC: Generalized weakness. Vent Setting Ventilator Support Mode: AC Fraction of Inspired Oxygen pe: 70 Positive End Expiratory Pressu: 5.0 Results/Medications Result Diagram: 02/09/1933 02/09/19 0633 Results 24 hrs Laboratory Tests Test 02/08/19 13:41 02/08/19 18:45 02/08/19 22:06 02/08/19 22:17 Bedside Glucose 131 138 152 Vancomycin Level 20.3 *H Trough Test 02/09/19 01:35 02/09/19 06:16 02/09/19 06:33 Bedside Glucose 162 121 White Blood Count 20.3 #H Red Blood Count 2.46 L Hemoglobin 7.0 L Hematocrit 23.2 L Mean Corpuscular 94.3 Volume Mean Corpuscular 28.5 L Hemoglobin Mean Corpuscular 30.2 L Hemoglobin Concent Red Cell 21.6 H Distribution Width Platelet Count 118 L Mean Platelet Volume 13.1 H Immature 0.700 H Granulocytes % Neutrophils % 90.9 H Lymphocytes % 5.6 L Monocytes % 2.3 Eosinophils % 0.4 Basophils % 0.1 Nucleated Red Blood 0.4 H Cells % Immature 0.150 H Granulocytes # Neutrophils # 18.5 H Lymphocytes # 1.1 Monocytes # 0.5 Eosinophils # 0.1 Basophils # 0.0 Nucleated Red Blood 0.1 H Cells # Sodium Level 153 H Potassium Level 4.6 Chloride Level 119 H Carbon Dioxide Level 31 Anion Gap 3 L Blood Urea Nitrogen 67 H Creatinine 1.53 H Est Glomerular Filtrat Rate mL/min Glucose Level 103 Calcium Level 7.5 L Medications Current Medications Lactulose (Enulose) 20 gm DAILY PRN PO CONSTIPATION; Start 01/17/19 at 18:17 Acetaminophen (Tylenol Tab) 650 mg Q4H PRN PO PAIN Last administered on 01/23/19 22:48; Admin Dose 650 MG; Start 01/17/19 at 18:17 Miscellaneous Information (Pending [facility] Order For Wound Care) This patient ramirez... PRN PRN XX WOUND CARE; Start 01/17/19 at 18:17 Albuterol/ Ipratropium (Duoneb) 3 ml Q2H RESP THERAPY PRN HHN SHORTNESS OF BREATH Last administered on 02/07/19at 05:45; Admin Dose 3 ML; Start 01/17/19 at 18:17 Bisacodyl (Dulcolax) 10 mg BID PRN PO CONSTIPATION; Start 01/17/19 at 18:17; Status Hold Folic Acid (Folic Acid) 1 mg DAILY PO Last administered on 02/09/19 08:16; Admin Dose 1 MG; Start 01/17/19 at 18:17 Latanoprost (Xalatan) 1 drop HS BOTH EYES Last administered on 02/08/19at 21:57; Admin Dose 1 DROP; Start 01/17/19 at 18:17 Nitroglycerin (Nitroglycerin (Sl Tab) 0.4 Mg) 0.4 tab Q5M PRN SL CHEST PAIN; Start 01/17/19 at 18:17 Nystatin (Nystatin Powder) 1 applic BID TOP Last administered on 02/09/19 08:15; Admin Dose 1 APPLIC; Start 01/17/19 at 18:17 IV Flush (NS 3 ml) 3 ml PER PROTOCOL IV ; Start 01/17/19 at 18:17 Miscellaneous Information 1 ea NOTE XX ; Start 01/17/19 at 18:17 Glucose (Glutose) 15 gm Q15M PRN PO DECREASED GLUCOSE; Start 01/17/19 at 18:17 Glucose (Glutose) 22.5 gm Q15M PRN PO DECREASED GLUCOSE; Start 01/17/19 at 18:17 Dextrose (D50w Syringe) 25 ml Q15M PRN IV DECREASED GLUCOSE Last administered on 02/05/19at 09:50; Admin Dose 25 ML; Start 01/17/19 at 18:17 Dextrose (D50w Syringe) 50 ml Q15M PRN IV DECREASED GLUCOSE; Start 01/17/19 at 18:17 Glucagon (Glucagen) 1 mg Q15M PRN IM DECREASED GLUCOSE; Start 01/17/19 at 18:17 Glucose (Glutose) 15 gm Q15M PRN BUCCAL DECREASED GLUCOSE; Start 01/17/19 at 18:17 Ascorbic Acid (Vitamin C) 250 mg DAILY PO Last administered on 02/09/19at 08:16; Admin Dose 250 MG; Start 01/17/19 at 18:17 Bisacodyl (Dulcolax Supp) 10 mg DAILY PRN [place] CONSTIPATION; Start 01/17/19 at 18:17 Zinc Acetate/ Diphenhydramine (Benadryl 2% Cr) 1 applic Q6H PRN TOP ITCHING Last administered on 01/26/19at 07:54; Admin Dose 1 APPLIC; Start 01/19/19 at 16:37 IV Flush (NS 10 ml) 10 ml PRN PRN IV IV PROTOCOL; Start 01/20/19 at 14:30 Cyanocobalamin (Vitamin B12 Inj) 1,000 mcg Q7D IM Last administered on 02/03/19at 08:14; Admin Dose 1,000 MCG; Start 02/03/19 at 09:00 Metoprolol Tartrate (Lopressor) 5 mg Q4H PRN IV HR>110 Hold SBP<100; Start 01/26/19 at 14:30 Vancomycin HCl (Vanco Iv Per Pharmacy) VANCOMYCIN PER PHARMACY PER PROTOCOL XX ; Start 01/27/19 at 12:00 Enoxaparin Sodium (Lovenox) 60 mg DAILY SC Last administered on 02/03/19at 08:0 6; Admin Dose 60 MG; Start 01/28/19 at 09:00; Status Hold Lorazepam (Ativan) 1 mg Q2 PRN IV SEIZURES Last administered on 02/09/19at 04:51; Admin Dose 1 MG; Start 01/27/19 at 14:00 Atorvastatin Calcium (Lipitor) 40 mg QHS NGT Last administered on 02/08/19 21:56; Admin Dose 40 MG; Start 01/28/19 at 21:00 Docusate Sodium (Colace Liquid Cup) 100 mg BID NGT ; Start 01/27/19 at 22:00; Status Hold Terazosin HCl (Hytrin) 10 mg HS NGT Last administered on 02/08/19 22:27; Admin Dose 10 MG; Start 01/28/19 at 21:00 Levetiracetam 100 ml @ 400 mls/hr Q12 IVPB Last administered on 02/09/19 08:14; Admin Dose 400 MLS/HR; Start 01/28/19 at 09:00 Levothyroxine Sodium (Synthroid) 125 mcg BEFORE BREAKFAST NGT Last administered on 02/09/19 06:02; Admin Dose 125 MCG; Start 01/28/19 at 07:00 Ferrous Sulfate (Feosol Liquid Cup) 300 mg WITH MEALS GTB Last administered on 02/09/19 08:14; Admin Dose 300 MG; Start 01/28/19 at 11:30 Multivitamins (Multivitamin) 30 ml DAILY GTB Last administered on 02/09/19 08:13; Admin Dose 30 ML; Start 01/28/19 at 11:00 Diagnostic Test (Pha) (Accu-Chek) 1 ea Q4 XX Last administered on 02/09/19 07:52; Admin Dose 1 EA; Start 01/28/19 at 13:00 Nystatin/ Triamcinolone Acetonide (Mycolog Oint) 1 applic BID TOP Last administered on 02/09/19 08:15; Admin Dose 1 APPLIC; Start 01/28/19 at 22:30 Insulin Aspart (Novolog Insulin Pen) NOVOLOG *MILD* ALGORI... Q4 SC Last adm inistered on 02/09/19 01:46; Admin Dose 1 UNIT; Start 01/29/19 at 05:00 Albuterol/ Ipratropium (Duoneb) 3 ml Q6HWA RESP THERAPY HHN Last administered on 02/09/19 08:26; Admin Dose 3 ML; Start 01/29/19 at 14:00 Epoetin Dae-epbx (RETACRIT(non-esrd)) 40,000 unit Mo@1700 SC Last administered on 02/03/19 18:12; Admin Dose 40,000 UNIT; Start 02/03/19 at 17:00 Mupirocin (Bactroban) 1 applic BID TOP Last administered on 02/09/19 08:17; Admin Dose 1 APPLIC; Start 01/30/19 at 15:26; Stop 02/09/19 at 15:25 Insulin Glargine (Lantus) 10 units DAILY@2000 SC Last administered on 02/08/19 20:00; Admin Dose 10 UNITS; Start 01/31/19 at 20:00 Aztreonam 1 gm/ Dextrose 50 ml @ 100 mls/hr Q12 IVPB Last administered on 02/09/19 10:01; Admin Dose 100 MLS/HR; Start 02/03/19 at 21:00 Metoprolol Tartrate (Lopressor) 12.5 mg BID PO Last administered on 02/09/19 08:14; Admin Dose 12.5 MG; Start 02/05/19 at 21:00 Eye Lubricant (Refresh Plus) 1 drop QID BOTH EYES Last administered on 02/09/19 08:14; Admin Dose 1 DROP; Start 02/06/19 at 09:00 Eye Lubricant (Akwa Oint) 1 applic HS LEFT EYE Last administered on 02/08/19 21:57; Admin Dose 1 APPLIC; Start 02/06/19 at 21:00 Potassium Chloride (Potassium Chloride Pwd/Soln) 20 meq BID NGT Last administered on 02/09/19 08:13; Admin Dose 20 MEQ; Start 02/06/19 at 21:00 Multi-Ingredient Ointment (Aquaphor Oint 52.5 Gm) 1 applic BID TOP Last administered on 02/09/19 08:16; Admin Dose 1 APPLIC; Start 02/06/19 at 22:40 Lansoprazole (Prevacid) 30 mg BID@0600,1800 NGT Last administered on 02/09/19 06:13; Admin Dose 30 MG; Start 02/07/19 at 18:00 Tobramycin Sulfate/Sodium Chloride (Nilesh Inhal) 300 mg BID RESP THERAPY NEB Last administered on 02/09/19 08:26; Admin Dose 300 MG; Start 5/18/19 at 09:00 Furosemide (Lasix) 20 mg BID DIURETICS IV Last administered on 02/09/19at 06:03; Admin Dose 20 MG; Start 02/08/19 at 18:00 Morphine Sulfate (morphine) 0.5 mg Q4H PRN IV SEVERE PAIN LEVEL 7-10; Start 02/08/19 at 19:00 Vancomycin HCl 750 mg/Dextrose 250 ml @ 125 mls/hr Q72H IVPB ; Start 02/09/19 at 23:00 Assessment/Plan Hospital Course (Demo Recall) IMP: 1. s/p Acute hypoxemic respiratory failure likely secondary to combination of volume overload and pneumonia 2. Encephalopathy underlying dementia versus toxic metabolic, appears to be slowly improving possibly secondary to elevated sodium. 3. Valvular heart disease 4. Severe dysphagia 5. Status post septic shock likely secondary to above, persistent leukocytosis. 6. Anemia, no active GI bleeding 7. Skin diffuse excoriating skin lesion unclear etiology not consistent with history of "red man" syndrome. or pemphigus. 8. Anemia RECS: 1. Monitor respiratory status closely. 2. Continue broad-spectrum antibiotics 3. Infectious work-up as per ID 4. Consider further unit of PRBCs 5. Palliative care consult appreciated 6. Replete K+ and Mg, continue free water 7. Aspiration precautions, may require PEG tube placement Consider DNR CODE STATUS Overall prognosis remains guarded DIANA MCRAE MD, [facility] February 09, 2019 11:42
--- NOTE | 2019-02-09 11:48 | CONS ---
Consult Date/Type/Reason Admit Date/Time Jan 17, 2019 at 15:58 Initial Consult Date Type of Consultation: Pulm/CCM Requesting Provider: IVAN AKHTAR MD Date/Time of Note DATE: 02/09/19 TIME: 11:45 Subjective NO acute events - pt stable overall - increased CHF/fluid retention - CR1.53 anf H/H at 7 - discussed with Dr. De Leon - pt with h/o CAD - advise blood Rx if full care is expected, ROS: No fever, no chills, no nausea, no vomiting, no diarrhea/constipation - per nurse, opt non verbal to be now Objective Vitals Vital Signs Date Temp Pulse Resp B/P (MAP) Pulse Ox O2 O2 Flow FiO2 Time Delivery Rate 02/09/19 78 20 98 Nasal 2.0 08:35 Cannula 02/09/19 98.7 123/51 07:17 (75) Intake and Output 02/08/19 02/08/19 02/09/19 1515:00 23:00 07:00 IntakeIntake Total 1020 ml 810 ml OutputOutput Total 850 ml 900 ml BalanceBalance 170 ml -90 ml Exam General: WN/WD/NAD, AOx 0 HEENT: Unicetric/atraumatic/EOMI (does not follow commands) NECK: JVD elevated, no thyromegaly - NGT in VD 9 cm Lymph: no lymphadenopathy HEART: regular with no S3, II/ systolic murmur at apex LUNGS: Coarse sounds ABD: soft, NT, ND, +BS : Intact Neuro: non focal SKIN: chronic changes EXT: increased edema Results/Medications Result Diagram: 02/09/1963202/09/1933 Results 24 hrs Laboratory Tests Test 02/08/19 13:41 02/08/19 18:45 02/08/19 22:06 02/08/19 22:17 Bedside Glucose 131 138 152 Vancomycin Level 20.3 *H Trough Test 02/09/19 01:35 02/09/19 06:16 02/09/19 06:33 Bedside Glucose 162 121 White Blood Count 20.3 #H Red Blood Count 2.46 L Hemoglobin 7.0 L Hematocrit 23.2 L Mean Corpuscular 94.3 Volume Mean Corpuscular 28.5 L Hemoglobin Mean Corpuscular 30.2 L Hemoglobin Concent Red Cell 21.6 H Distribution Width Platelet Count 118 L Mean Platelet Volume 13.1 H Immature 0.700 H Granulocytes % Neutrophils % 90.9 H Lymphocytes % 5.6 L Monocytes % 2.3 Eosinophils % 0.4 Basophils % 0.1 Nucleated Red Blood 0.4 H Cells % Immature 0.150 H Granulocytes # Neutrophils # 18.5 H Lymphocytes # 1.1 Monocytes # 0.5 Eosinophils # 0.1 Basophils # 0.0 Nucleated Red Blood 0.1 H Cells # Sodium Level 153 H Potassium Level 4.6 Chloride Level 119 H Carbon Dioxide Level 31 Anion Gap 3 L Blood Urea Nitrogen 67 H Creatinine 1.53 H Est Glomerular Filtrat Rate mL/min Glucose Level 103 Calcium Level 7.5 L Home Meds Active Scripts Apixaban* (Eliquis*) 5 Mg Tablet, 2.5 MG PO BID for 30 Days, TAB Prov:IVAN AKHTAR MD 12/20/18 Metoprolol Tartrate* (Lopressor*) 50 Mg Tab, 50 MG PO BID for 30 Days, TAB Prov:COOPER CARO 12/20/18 Reported Medications Furosemide* (Lasix*) 20 Mg Tablet, 20 MG PO BID, TAB 01/05/19 Polyethylene Glycol* (Miralax*) 17 Gm Powd.pack, 17 GM PO DAILY, #30 PACKET 12/15/18 Nifedipine* (Nifedipine ER*) 60 Mg Tablet.sa, 60 MG PO DAILY, TAB.SA 12/15/18 Bisacodyl* (Bisacodyl*) 5 Mg Tablet.dr, 10 MG PO BID PRN for CONSTIPATION, TAB 12/15/18 Pregabalin* (Lyrica*) 25 Mg Capsule, 25 MG PO TID, CAP 12/15/18 Bimatoprost* (Lumigan*) 0.01%-5 Ml Opht Drops, 1 DROP BOTH EYES HS, EA 03/02/18 Cetirizine Hcl* (Cetirizine Hcl*) 10 Mg Tablet, 10 MG PO DAILY, #30 TAB 03/02/18 Insulin Glargine* (Lantus*) 100 Unit/Ml Soln, 10 UNIT SC QHS, #1 VIAL 03/02/18 Ergocalciferol (Vitamin D2) (VITAMIN D2) 2,000 Unit Tablet, 2000 UNIT PO DAILY, TAB 03/02/18 Famotidine* (Famotidine*) 20 Mg Tablet, 20 MG PO DAILY, #30 TAB 03/02/18 Ferrous Sulfate* (Ferrous Sulfate*) 325 Mg Tabec, 325 MG PO BID, TAB 03/02/18 Nitroglycerin* (Nitrostat*) 0.4 Mg Tab.subl, 0.4 MG SL Q5MIN PRN for CHEST PAIN, BOTTLE 03/02/18 Terazosin Hcl* (Terazosin Hcl*) 10 Mg Capsule, 10 MG PO HS, CAP 03/02/18 Levothyroxine Sodium* (Levoxyl*) 125 Mcg Tablet, 125 MCG PO BEFORE BREAKFAST, #30 TAB 03/02/18 Allopurinol* (Allopurinol*) 100 Mg Tablet, 100 MG PO BID, TAB 03/02/18 Atorvastatin* (Atorvastatin*) 40 Mg Tablet, 40 MG PO QHS, #30 TAB 03/02/18 Folic Acid* (Folic Acid*) 1 Mg Tablet, 1 MG PO DAILY, TAB 03/02/18 Medications Current Medications Lactulose (Enulose) 20 gm DAILY PRN PO CONSTIPATION; Start 01/17/19 at 18:17 Acetaminophen (Tylenol Tab) 650 mg Q4H PRN PO PAIN Last administered on 01/23/19at 22:48; Admin Dose 650 MG; Start 01/17/19 at 18:17 Miscellaneous Information (Pending [facility] Order For Wound Care) This patient ramirez... PRN PRN XX WOUND CARE; Start 01/17/19 at 18:17 Albuterol/ Ipratropium (Duoneb) 3 ml Q2H RESP THERAPY PRN HHN SHORTNESS OF BREATH Last administered on 02/07/19at 05:45; Admin Dose 3 ML; Start 01/17/19 at 18:17 Bisacodyl (Dulcolax) 10 mg BID PRN PO CONSTIPATION; Start 01/17/19 at 18:17; Status Hold Folic Acid (Folic Acid) 1 mg DAILY PO Last administered on 02/09/19at 08:16; Admin Dose 1 MG; Start 01/17/19 at 18:17 Latanoprost (Xalatan) 1 drop HS BOTH EYES Last administered on 02/08/19at 21:57; Admin Dose 1 DROP; Start 01/17/19 at 18:17 Nitroglycerin (Nitroglycerin (Sl Tab) 0.4 Mg) 0.4 tab Q5M PRN SL CHEST PAIN; Start 01/17/19 at 18:17 Nystatin (Nystatin Powder) 1 applic BID TOP Last administered on 02/09/19at 08:15; Admin Dose 1 APPLIC; Start 01/17/19 at 18:17 IV Flush (NS 3 ml) 3 ml PER PROTOCOL IV ; Start 01/17/19 at 18:17 Miscellaneous Information 1 ea NOTE XX ; Start 01/17/19 at 18:17 Glucose (Glutose) 15 gm Q15M PRN PO DECREASED GLUCOSE; Start 01/17/19 at 18:17 Glucose (Glutose) 22.5 gm Q15M PRN PO DECREASED GLUCOSE; Start 01/17/19 at 18:17 Dextrose (D50w Syringe) 25 ml Q15M PRN IV DECREASED GLUCOSE Last administered on 02/05/19at 09:50; Admin Dose 25 ML; Start 01/17/19 at 18:17 Dextrose (D50w Syringe) 50 ml Q15M PRN IV DECREASED GLUCOSE; Start 01/17/19 at 18:17 Glucagon (Glucagen) 1 mg Q15M PRN IM DECREASED GLUCOSE; Start 01/17/19 at 18:17 Glucose (Glutose) 15 gm Q15M PRN BUCCAL DECREASED GLUCOSE; Start 01/17/19 at 18:17 Ascorbic Acid (Vitamin C) 250 mg DAILY PO Last administered on 02/09/19at 08:16; Admin Dose 250 MG; Start 01/17/19 at 18:17 Bisacodyl (Dulcolax Supp) 10 mg DAILY PRN [place] CONSTIPATION; Start 01/17/19 at 18:17 Zinc Acetate/ Diphenhydramine (Benadryl 2% Cr) 1 applic Q6H PRN TOP ITCHING Last administered on 01/26/19at 07:54; Admin Dose 1 APPLIC; Start 01/19/19 at 16:37 IV Flush (NS 10 ml) 10 ml PRN PRN IV IV PROTOCOL; Start 01/20/19 at 14:30 Cyanocobalamin (Vitamin B12 Inj) 1,000 mcg Q7D IM Last administered on 02/03/19at 08:14; Admin Dose 1,000 MCG; Start 02/03/19 at 09:00 Metoprolol Tartrate (Lopressor) 5 mg Q4H PRN IV HR>110 Hold SBP<100; Start 01/26/19 at 14:30 Vancomycin HCl (Vanco Iv Per Pharmacy) VANCOMYCIN PER PHARMACY PER PROTOCOL XX ; Start 01/27/19 at 12:00 Enoxaparin Sodium (Lovenox) 60 mg DAILY SC Last administered on 02/03/19 08:06; Admin Dose 60 MG; Start 01/28/19 at 09:00; Status Hold Lorazepam (Ativan) 1 mg Q2 PRN IV SEIZURES Last administered on 02/09/19 04:51; Admin Dose 1 MG; Start 01/27/19 at 14:00 Atorvastatin Calcium (Lipitor) 40 mg QHS NGT Last administered on 02/08/19 21:56; Admin Dose 40 MG; Start 01/28/19 at 21:00 Docusate Sodium (Colace Liquid Cup) 100 mg BID NGT ; Start 01/27/19 at 22:00; Status Hold Terazosin HCl (Hytrin) 10 mg HS NGT Last administered on 02/08/19 22:27; Admin Dose 10 MG; Start 01/28/19 at 21:00 Levetiracetam 100 ml @ 400 mls/hr Q12 IVPB Last administered on 02/09/19 0 8:14; Admin Dose 400 MLS/HR; Start 01/28/19 at 09:00 Levothyroxine Sodium (Synthroid) 125 mcg BEFORE BREAKFAST NGT Last administered on 02/09/19 06:02; Admin Dose 125 MCG; Start 01/28/19 at 07:00 Ferrous Sulfate (Feosol Liquid Cup) 300 mg WITH MEALS GTB Last administered on 02/09/19 08:14; Admin Dose 300 MG; Start 01/28/19 at 11:30 Multivitamins (Multivitamin) 30 ml DAILY GTB Last administered on 02/09/19 08:13; Admin Dose 30 ML; Start 01/28/19 at 11:00 Diagnostic Test (Pha) (Accu-Chek) 1 ea Q4 XX Last administered on 02/09/19 07:52; Admin Dose 1 EA; Start 01/28/19 at 13:00 Nystatin/ Triamcinolone Acetonide (Mycolog Oint) 1 applic BID TOP Last administered on 5/19/19at 08:15; Admin Dose 1 APPLIC; Start 01/28/19 at 22:30 Insulin Aspart (Novolog Insulin Pen) NOVOLOG *MILD* ALGORI... Q4 SC Last administered on 02/09/19 01:46; Admin Dose 1 UNIT; Start 01/29/19 at 05:00 Albuterol/ Ipratropium (Duoneb) 3 ml Q6HWA RESP THERAPY HHN Last administered on 02/09/19 08:26; Admin Dose 3 ML; Start 01/29/19 at 14:00 Epoetin Dae-epbx (RETACRIT(non-esrd)) 40,000 unit Mo@1700 SC Last administered on 02/03/19 18:12; Admin Dose 40,000 UNIT; Start 02/03/19 at 17:00 Mupirocin (Bactroban) 1 applic BID TOP Last administered on 02/09/19 08:17; Admin Dose 1 APPLIC; Start 01/30/19 at 15:26; Stop 02/09/19 at 15:25 Insulin Glargine (Lantus) 10 units DAILY@2000 SC Last administered on 02/08/19 20:00; Admin Dose 10 UNITS; Start 01/31/19 at 20:00 Aztreonam 1 gm/ Dextrose 50 ml @ 100 mls/hr Q12 IVPB Last administered on 02/09/19 10:01; Admin Dose 100 MLS/HR; Start 02/03/19 at 21:00 Metoprolol Tartrate (Lopressor) 12.5 mg BID PO Last administered on 02/09/19 08:14; Admin Dose 12.5 MG; Start 02/05/19 at 21:00 Eye Lubricant (Refresh Plus) 1 drop QID BOTH EYES Last administered on 9at 08:14; Admin Dose 1 DROP; Start 02/06/19 at 09:00 Eye Lubricant (Akwa Oint) 1 applic HS LEFT EYE Last administered on 02/08/19 21:57; Admin Dose 1 APPLIC; Start 02/06/19 at 21:00 Potassium Chloride (Potassium Chloride Pwd/Soln) 20 meq BID NGT Last administered on 02/09/19 08:13; Admin Dose 20 MEQ; Start 02/06/19 at 21:00 Multi-Ingredient Ointment (Aquaphor Oint 52.5 Gm) 1 applic BID TOP Last administered on 02/09/19at 08:16; Admin Dose 1 APPLIC; Start 02/06/19 at 22:40 Lansoprazole (Prevacid) 30 mg BID@0600,1800 NGT Last administered on 02/09/19at 06:13; Admin Dose 30 MG; Start 02/07/19 at 18:00 Tobramycin Sulfate/Sodium Chloride (Nilesh Inhal) 300 mg BID RESP THERAPY NEB Last administered on 02/09/19at 08:26; Admin Dose 300 MG; Start 02/08/19 at 09:00 Furosemide (Lasix) 20 mg BID DIURETICS IV Last administered on 02/09/19at 06:03; Admin Dose 20 MG; Start 02/08/19 at 18:00 Morphine Sulfate (morphine) 0.5 mg Q4H PRN IV SEVERE PAIN LEVEL 7-10; Start 02/08/19 at 19:00 Vancomycin HCl 750 mg/Dextrose 250 ml @ 125 mls/hr Q72H IVPB ; Start 02/09/19 at 23:00 Assessment/Plan Hospital Course (Demo Recall) 1. Atrial fibrillation, currently rate controlled.-off systemic anticoagulation due to anemia. On ASA only now - RATE CONTROLLED. now in a. fib. At 100s - will allow for now. Wll allow for now. Eliquis dosed to be held. 2. CHF - chronic, DD. EF of 60%.Spot diuresis as needed. Con't to follow. Increased fluid status - will add lasix doses now. 3. Tricuspid regurgitation, moderate by most recent echo. 4. Acute on chronic renal failure - Cr up to 1.66 - avoid nephrotoxic meds. Dr. Alatorre follow. Stable. Reasonable urine output. Might be new baseline. 5. Hyponatremia - going up to 160s - check am cortisol level. 5. Possible pneumonia - on anti-bx now. ID follows On pressors now. 6. History of coronary artery disease, status post coronary artery bypass graft surgery. Treated. 7. Dyslipidemia. 8. Rheumatoid arthritis - Rx per rheumatology. 9. Groin cellulitis. 10. Anemia-worsening again today requiring transfusions - trending down, will monitor. Blood Tx advised. 11. Diabetes mellitus. 12. Sepsis - skin looks better. Con't supportive rX. Overall, prognosis is poor with no focal improvement . LENSKY,LOU MD February 09, 2019 11:48
[2019-02-09] MEDS ORDERED: FUROSEMIDE 40 MG INJ IM ONE (12:00)
--- NOTE | 2019-02-09 12:14 | CONS ---
Assessment/Plan Assessment/Plan Assessment/Plan (Daily) 88 yo male with multiple medical problems including DM, CRF, RA, PVD and chronic afib on Eliquis who presented to [facility] 01/05/19 with severe normocytic anemia and Hg ~7. 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 # Anemia-normocytic Hgb 7.4 today -Hg > 7 currently -Multifactorial at this time due to iron deficiency, vitamin b12 deficiency and also likely anemia of chronic kidney disease and inflammation. Elevated Methylmalonic acid level noted -Patient still has low iron level even though ferritin is elevated. Ferritin likely elevated due to acute phase reactant. pt is now s/p IV iron. Pt is s/p EGD and colonoscopy by Dr Frost 01/09/19 which didn't find an obvious GI etiology to explain anemia. AVM or a small lesion could be missed due to poor prep. Pt likely needs capsule endoscopy -continue vitamin b12 weekly as vitamin b12 was low normal and methylmalonic acid was elevated. Continue folate as well. -No evidence of hemolysis at this time. -Transfuse to keep Hgb > 7. 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 -This may be a pseudocyst or a precancerous pancreatic lesion. -It has been growing in size but patient is asymptomatic. EUS with biopsy is recommended and can either be done inpatient or outpatient setting. -The patient at this time is unlikely a candidate for a whipple surgery however. Patient seen in collaboration with Dr King/ dw staff Consultation Date/Type/Reason Admit Date/Time Jan 17, 2019 at 15:58 Initial Consult Date 01/18/19 Type of Consult oncology Reason for Consultation Anemia/Pancreatic mass Requesting Provider: IVAN AKHTAR MD Date/Time of Note DATE: 02/09/19 TIME: 12:13 24 HR Interval Summary Free Text/Dictation afebrile no GI blood reported no shortness of breath, chest pain/ nausea. vomiting reported no new events reported last night dw staff Constitutional: requiring O2 Exam/Review of Systems Exam Vitals Vital Signs Date Temp Pulse Resp B/P (MAP) Pulse Ox O2 O2 Flow FiO2 Time Delivery Rate 02/09/19 98.7 75 16 104/39 98 Nasal 11:55 (60) Cannula 02/09/19 2.0 08:35 Intake and Output 02/08/19 02/08/19 02/09/19 1515:00 23:00 07:00 IntakeIntake Total 1020 ml 810 ml OutputOutput Total 850 ml 900 ml BalanceBalance 170 ml -90 ml Results Result Diagram: 02/09/19 0633 02/09/19 0633 Results 24hrs Laboratory Tests Test 02/08/19 13:41 02/08/19 18:45 02/08/19 22:06 02/08/19 22:17 Bedside Glucose 131 138 152 Vancomycin Level 20.3 *H Trough Test 02/09/19 01:35 02/09/19 06:16 02/09/19 06:33 Bedside Glucose 162 121 White Blood Count 20.3 #H Red Blood Count 2.46 L Hemoglobin 7.0 L Hematocrit 23.2 L Mean Corpuscular 94.3 Volume Mean Corpuscular 28.5 L Hemoglobin Mean Corpuscular 30.2 L Hemoglobin Concent Red Cell 21.6 H Distribution Width Platelet Count 118 L Mean Platelet Volume 13.1 H Immature 0.700 H Granulocytes % Neutrophils % 90.9 H Lymphocytes % 5.6 L Monocytes % 2.3 Eosinophils % 0.4 Basophils % 0.1 Nucleated Red Blood 0.4 H Cells % Immature 0.150 H Granulocytes # Neutrophils # 18.5 H Lymphocytes # 1.1 Monocytes # 0.5 Eosinophils # 0.1 Basophils # 0.0 Nucleated Red Blood 0.1 H Cells # Sodium Level 153 H Potassium Level 4.6 Chloride Level 119 H Carbon Dioxide Level 31 Anion Gap 3 L Blood Urea Nitrogen 67 H Creatinine 1.53 H Est Glomerular Filtrat Rate mL/min Glucose Level 103 Calcium Level 7.5 L Medications Medication Current Medications Lactulose (Enulose) 20 gm DAILY PRN PO CONSTIPATION; Start 01/17/19 at 18:17 Acetaminophen (Tylenol Tab) 650 mg Q4H PRN PO PAIN Last administered on 01/23/19at 22:48; Admin Dose 650 MG; Start 01/17/19 at 18:17 Miscellaneous Information (Pending [facility]yl Order For Wound Care) This patient ramirez... PRN PRN XX WOUND CARE; Start 01/17/19 at 18:17 Albuterol/ Ipratropium (Duoneb) 3 ml Q2H RESP THERAPY PRN HHN SHORTNESS OF BREATH Last administered on 02/07/19at 05:45; Admin Dose 3 ML; Start 01/17/19 at 18:17 Bisacodyl (Dulcolax) 10 mg BID PRN PO CONSTIPATION; Start 01/17/19 at 18:17; Status Hold Folic Acid (Folic Acid) 1 mg DAILY PO Last administered on 02/09/19at 08:16; Admin Dose 1 MG; Start 01/17/19 at 18:17 Latanoprost (Xalatan) 1 drop HS BOTH EYES Last administered on 02/08/19at 21:57; Admin Dose 1 DROP; Start 01/17/19 at 18:17 Nitroglycerin (Nitroglycerin (Sl Tab) 0.4 Mg) 0.4 tab Q5M PRN SL CHEST PAIN; Start 01/17/19 at 18:17 Nystatin (Nystatin Powder) 1 applic BID TOP Last administered on 02/09/19at 08:15; Admin Dose 1 APPLIC; Start 01/17/19 at 18:17 IV Flush (NS 3 ml) 3 ml PER PROTOCOL IV ; Start 01/17/19 at 18:17 Miscellaneous Information 1 ea NOTE XX ; Start 01/17/19 at 18:17 Glucose (Glutose) 15 gm Q15M PRN PO DECREASED GLUCOSE; Start 01/17/19 at 18:17 Glucose (Glutose) 22.5 gm Q15M PRN PO DECREASED GLUCOSE; Start 01/17/19 at 18:17 Dextrose (D50w Syringe) 25 ml Q15M PRN IV DECREASED GLUCOSE Last administered on 02/05/19at 09:50; Admin Dose 25 ML; Start 01/17/19 at 18:17 Dextrose (D50w Syringe) 50 ml Q15M PRN IV DECREASED GLUCOSE; Start 01/17/19 at 18:17 Glucagon (Glucagen) 1 mg Q15M PRN IM DECREASED GLUCOSE; Start 01/17/19 at 18:17 Glucose (Glutose) 15 gm Q15M PRN BUCCAL DECREASED GLUCOSE; Start 01/17/19 at 18:17 Ascorbic Acid (Vitamin C) 250 mg DAILY PO Last administered on 02/09/19 08:16; Admin Dose 250 MG; Start 01/17/19 at 18:17 Bisacodyl (Dulcolax Supp) 10 mg DAILY PRN [place] CONSTIPATION; Start 01/17/19 at 18:17 Zinc Acetate/ Diphenhydramine (Benadryl 2% Cr) 1 applic Q6H PRN TOP ITCHING Last administered on 01/26/19 07:54; Admin Dose 1 APPLIC; Start 01/19/19 at 16:37 IV Flush (NS 10 ml) 10 ml PRN PRN IV IV PROTOCOL; Start 01/20/19 at 14:30 Cyanocobalamin (Vitamin B12 Inj) 1,000 mcg Q7D IM Last administered on 02/03/19 08:14; Admin Dose 1,000 MCG; Start 02/03/19 at 09:00 Metoprolol Tartrate (Lopressor) 5 mg Q4H PRN IV HR>110 Hold SBP<100; Start 01/26/19 at 14:30 Vancomycin HCl (Vanco Iv Per Pharmacy) VANCOMYCIN PER PHARMACY PER PROTOCOL XX ; Start 01/27/19 at 12:00 Enoxaparin Sodium (Lovenox) 60 mg DAILY SC Last administered on 02/03/19 08:06; Admin Dose 60 MG; Start 01/28/19 at 09:00; Status Hold Lorazepam (Ativan) 1 mg Q2 PRN IV SEIZURES Last administered on 02/09/19 04:51; Admin Dose 1 MG; Start 01/27/19 at 14:00 Atorvastatin Calcium (Lipitor) 40 mg QHS NGT Last administered on 02/08/19 21:56; Admin Dose 40 MG; Start 01/28/19 at 21:00 Docusate Sodium (Colace Liquid Cup) 100 mg BID NGT ; Start 01/27/19 at 22:00; Status Hold Terazosin HCl (Hytrin) 10 mg HS NGT Last administered on 02/08/19 22:27; Admin Dose 10 MG; Start 01/28/19 at 21:00 Levetiracetam 100 ml @ 400 mls/hr Q12 IVPB Last administered on 02/09/19 08:14; Admin Dose 400 MLS/HR; Start 01/28/19 at 09:00 Levothyroxine Sodium (Synthroid) 125 mcg BEFORE BREAKFAST NGT Last administered on 02/09/19 06:02; Admin Dose 125 MCG; Start 01/28/19 at 07:00 Ferrous Sulfate (Feosol Liquid Cup) 300 mg WITH MEALS GTB Last administered on 02/09/19 12:01; Admin Dose 300 MG; Start 01/28/19 at 11:30 Multivitamins (Multivitamin) 30 ml DAILY GTB Last administered on 02/09/19 08:13; Admin Dose 30 ML; Start 01/28/19 at 11:00 Diagnostic Test (Pha) (Accu-Chek) 1 ea Q4 XX Last administered on 02/09/19 07:52; Admin Dose 1 EA; Start 01/28/19 at 13:00 Nystatin/ Triamcinolone Acetonide (Mycolog Oint) 1 applic BID TOP Last administered on 02/09/19 08:15; Admin Dose 1 APPLIC; Start 01/28/19 at 22:30 Insulin Aspart (Novolog Insulin Pen) NOVOLOG *MILD* ALGORI... Q4 SC Last administered on 02/09/19 01:46; Admin Dose 1 UNIT; Start 01/29/19 at 05:00 Albuterol/ Ipratropium (Duoneb) 3 ml Q6HWA RESP THERAPY HHN Last administered on 02/09/19 08:26; Admin Dose 3 ML; Start 01/29/19 at 14:00 Epoetin Dae-epbx (RETACRIT(non-esrd)) 40,000 unit Mo@1700 SC Last administered on 02/03/19 18:12; Admin Dose 40,000 UNIT; Start 02/03/19 at 17:00 Mupirocin (Bactroban) 1 applic BID TOP Last administered on 02/09/19 08:17; Admin Dose 1 APPLIC; Start 01/30/19 at 15:26; Stop 02/09/19 at 15:25 Insulin Glargine (Lantus) 10 units DAILY@2000 SC Last administered on 02/08/19 20:00; Admin Dose 10 UNITS; Start 01/31/19 at 20:00 Aztreonam 1 gm/ Dextrose 50 ml @ 100 mls/hr Q12 IVPB Last administered on 02/09/19 10:01; Admin Dose 100 MLS/HR; Start 02/03/19 at 21:00 Metoprolol Tartrate (Lopressor) 12.5 mg BID PO Last administered on 02/09/19 08:14; Admin Dose 12.5 MG; Start 02/05/19 at 21:00 Eye Lubricant (Refresh Plus) 1 drop QID BOTH EYES Last administered on 02/09/19 08:14; Admin Dose 1 DROP; Start 02/06/19 at 09:00 Eye Lubricant (Akwa Oint) 1 applic HS LEFT EYE Last administered on 02/08/19 21:57; Admin Dose 1 APPLIC; Start 02/06/19 at 21:00 Potassium Chloride (Potassium Chloride Pwd/Soln) 20 meq BID NGT Last administered on 02/09/19 08:13; Admin Dose 20 MEQ; Start 02/06/19 at 21:00 Multi-Ingredient Ointment (Aquaphor Oint 52.5 Gm) 1 applic BID TOP Last administered on 02/09/19 08:16; Admin Dose 1 APPLIC; Start 02/06/19 at 22:40 Lansoprazole (Prevacid) 30 mg BID@0600,1800 NGT Last administered on 02/09/19 06:13; Admin Dose 30 MG; Start 02/07/19 at 18:00 Tobramycin Sulfate/Sodium Chloride (Nilesh Inhal) 300 mg BID RESP THERAPY NEB Last administered on 02/09/19 08:26; Admin Dose 300 MG; Start 02/08/19 at 09:00 Furosemide (Lasix) 20 mg BID DIURETICS IV Last administered on 02/09/19 06:03; Admin Dose 20 MG; Start 02/08/19 at 18:00 Morphine Sulfate (morphine) 0.5 mg Q4H PRN IV SEVERE PAIN LEVEL 7-10; Start 02/08/19 at 19:00 Vancomycin HCl 750 mg/Dextrose 250 ml @ 125 mls/hr Q72H IVPB ; Start 02/09/19 at 23:00 JESI GATES February 09, 2019 12:14
--- NOTE | 2019-02-09 12:47 | CONS ---
Consultation Date/Type/Reason Admit Date/Time Jan 17, 2019 at 15:58 Initial Consult Date SUBJECTIVE: PT is awake, alert, afebrile. No acute events over night VS: stable T: 98.7 LABS: Reviewed. WBC- 20.3 Improving Microbiology: blood cultures repeated on January 17 grew coag negative staph suspicious of onset urine culture has been negative ==Skin biopsy revealed no evidence of vasculitis no evidence of malignancy. Please see full report in chart ==Wound culture grew Corynebacterium species. Sputum culture grew E. coli C dif neg Antimicrobials: Vancomycin, aztreonam, tobramycin inhalation Indwelling: Left subclavian triple-lumen catheter, Wade catheter, NG tube Physical examination: GEN: Obese well-developed chronically ill-appearing -Citizen Of [place] man, who is awake in no distress. HENT: Head atraumatic normocephalic, sclera nonicteric. Neck is supple PULM: chest rise symmetrical breath, sounds diminished bases. Heart: S1-S2. Abdomen obese soft bowel sounds present extremities without cyanosis, bilateral edema Assessment: 1. Severe sepsis s/p shock 2. Acute encephalopathy 3. Seizures 4. Healthcare acquired, possible aspiration pneumonia 5. Coronary artery disease/history of CABG 6. Advanced rheumatoid arthritis 5. Chronic atrial fibrillation 6. Diabetes 7. BPH 9. Acute on chronic anemia===> s/p EGD/colonoscopy 01/09/19 10. Status post right epididymitis 11. Pancreatic lesion per CT, unlikely neoplasm per oncology notes 12. 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 Continue current abx, follow skin biopsy results== sent to [facility] for final identification. continue with tapering steroids.Prognosis poor. CXR ordered Plan: Clinically unchanged, Requesting Provider: IVAN AKHTAR MD Date/Time of Note DATE: 02/09/19 TIME: 12:33 Exam/Review of Systems Exam Vitals Vital Signs Date Temp Pulse Resp B/P (MAP) Pulse Ox O2 O2 Flow FiO2 Time Delivery Rate 02/09/19 98.7 75 16 104/39 98 Nasal 11:55 (60) Cannula 02/09/19 2.0 08:35 Intake and Output 02/08/19 02/08/19 02/09/19 1414:59 22:59 06:59 IntakeIntake Total 1020 ml 810 ml OutputOutput Total 850 ml 900 ml BalanceBalance 170 ml -90 ml Results Result Diagram: 02/09/19 0633 02/09/19 0633 Results 24hrs Laboratory Tests Test 02/08/19 13:41 02/08/19 18:45 02/08/19 22:06 02/08/19 22:17 Bedside Glucose 131 138 152 Vancomycin Level 20.3 *H Trough Test 02/09/19 01:35 02/09/19 06:16 02/09/19 06:33 Bedside Glucose 162 121 White Blood Count 20.3 #H Red Blood Count 2.46 L Hemoglobin 7.0 L Hematocrit 23.2 L Mean Corpuscular 94.3 Volume Mean Corpuscular 28.5 L Hemoglobin Mean Corpuscular 30.2 L Hemoglobin Concent Red Cell 21.6 H Distribution Width Platelet Count 118 L Mean Platelet Volume 13.1 H Immature 0.700 H Granulocytes % Neutrophils % 90.9 H Lymphocytes % 5.6 L Monocytes % 2.3 Eosinophils % 0.4 Basophils % 0.1 Nucleated Red Blood 0.4 H Cells % Immature 0.150 H Granulocytes # Neutrophils # 18.5 H Lymphocytes # 1.1 Monocytes # 0.5 Eosinophils # 0.1 Basophils # 0.0 Nucleated Red Blood 0.1 H Cells # Sodium Level 153 H Potassium Level 4.6 Chloride Level 119 H Carbon Dioxide Level 31 Anion Gap 3 L Blood Urea Nitrogen 67 H Creatinine 1.53 H Est Glomerular Filtrat Rate mL/min Glucose Level 103 Calcium Level 7.5 L Medications Medication Current Medications Lactulose (Enulose) 20 gm DAILY PRN PO CONSTIPATION; Start 01/17/19 at 18:17 Acetaminophen (Tylenol Tab) 650 mg Q4H PRN PO PAIN Last administered on 01/23/19at 22:48; Admin Dose 650 MG; Start 01/17/19 at 18:17 [facility] This patient ramirez... PRN PRN XX WOUND CARE; Start 01/17/19 at 18:17 Albuterol/ Ipratropium (Duoneb) 3 ml Q2H RESP THERAPY PRN HHN SHORTNESS OF BREATH Last administered on 02/07/19at 05:45; Admin Dose 3 ML; Start 01/17/19 at 18:17 Bisacodyl (Dulcolax) 10 mg BID PRN PO CONSTIPATION; Start 01/17/19 at 18:17; Status Hold Folic Acid (Folic Acid) 1 mg DAILY PO Last administered on 02/09/19at 08:16; Admin Dose 1 MG; Start 01/17/19 at 18:17 Latanoprost (Xalatan) 1 drop HS BOTH EYES Last administered on 02/08/19at 21:57; Admin Dose 1 DROP; Start 01/17/19 at 18:17 Nitroglycerin (Nitroglycerin (Sl Tab) 0.4 Mg) 0.4 tab Q5M PRN SL CHEST PAIN; Start 01/17/19 at 18:17 Nystatin (Nystatin Powder) 1 applic BID TOP Last administered on 02/09/19at 08:15; Admin Dose 1 APPLIC; Start 01/17/19 at 18:17 IV Flush (NS 3 ml) 3 ml PER PROTOCOL IV ; Start 01/17/19 at 18:17 Miscellaneous Information 1 ea NOTE XX ; Start 01/17/19 at 18:17 Glucose (Glutose) 15 gm Q15M PRN PO DECREASED GLUCOSE; Start 01/17/19 at 18:17 Glucose (Glutose) 22.5 gm Q15M PRN PO DECREASED GLUCOSE; Start 01/17/19 at 18:17 Dextrose (D50w Syringe) 25 ml Q15M PRN IV DECREASED GLUCOSE Last administered on 02/05/19at 09:50; Admin Dose 25 ML; Start 01/17/19 at 18:17 Dextrose (D50w Syringe) 50 ml Q15M PRN IV DECREASED GLUCOSE; Start 01/17/19 at 18:17 Glucagon (Glucagen) 1 mg Q15M PRN IM DECREASED GLUCOSE; Start 01/17/19 at 18:17 Glucose (Glutose) 15 gm Q15M PRN BUCCAL DECREASED GLUCOSE; Start 01/17/19 at 18:17 Ascorbic Acid (Vitamin C) 250 mg DAILY PO Last administered on 02/09/19at 08:16; Admin Dose 250 MG; Start 01/17/19 at 18:17 Bisacodyl (Dulcolax Supp) 10 mg DAILY PRN [place] CONSTIPATION; Start 01/17/19 at 18:17 Zinc Acetate/ Diphenhydramine (Benadryl 2% Cr) 1 applic Q6H PRN TOP ITCHING Last administered on 01/26/19 07:54; Admin Dose 1 APPLIC; Start 01/19/19 at 16:37 IV Flush (NS 10 ml) 10 ml PRN PRN IV IV PROTOCOL; Start 01/20/19 at 14:30 Cyanocobalamin (Vitamin B12 Inj) 1,000 mcg Q7D IM Last administered on 02/03/19 08:14; Admin Dose 1,000 MCG; Start 02/03/19 at 09:00 Metoprolol Tartrate (Lopressor) 5 mg Q4H PRN IV HR>110 Hold SBP<100; Start 01/26/19 at 14:30 Vancomycin HCl (Vanco Iv Per Pharmacy) VANCOMYCIN PER PHARMACY PER PROTOCOL XX ; Start 01/27/19 at 12:00 Enoxaparin Sodium (Lovenox) 60 mg DAILY SC Last administered on 02/03/19 08:06; Admin Dose 60 MG; Start 01/28/19 at 09:00; Status Hold Lorazepam (Ativan) 1 mg Q2 PRN IV SEIZURES Last administered on 02/09/19 04:51; Admin Dose 1 MG; Start 01/27/19 at 14:00 Atorvastatin Calcium (Lipitor) 40 mg QHS NGT Last administered on 02/08/19 21:56; Admin Dose 40 MG; Start 01/28/19 at 21:00 Docusate Sodium (Colace Liquid Cup) 100 mg BID NGT ; Start 01/27/19 at 22:00; Status Hold Terazosin HCl (Hytrin) 10 mg HS NGT Last administered on 02/08/19 22:27; Admin Dose 10 MG; Start 01/28/19 at 21:00 Levetiracetam 100 ml @ 400 mls/hr Q12 IVPB Last administered on 02/09/19 08:14; Admin Dose 400 MLS/HR; Start 01/28/19 at 09:00 Levothyroxine Sodium (Synthroid) 125 mcg BEFORE BREAKFAST NGT Last administered on 02/09/19 06:02; Admin Dose 125 MCG; Start 01/28/19 at 07:00 Ferrous Sulfate (Feosol Liquid Cup) 300 mg WITH MEALS GTB Last administered on 02/09/19 12:01; Admin Dose 300 MG; Start 01/28/19 at 11:30 Multivitamins (Multivitamin) 30 ml DAILY GTB Last administered on 02/09/19 08:13; Admin Dose 30 ML; Start 01/28/19 at 11:00 Diagnostic Test (Pha) (Accu-Chek) 1 ea Q4 XX Last administered on 02/09/19 07:52; Admin Dose 1 EA; Start 01/28/19 at 13:00 Nystatin/ Triamcinolone Acetonide (Mycolog Oint) 1 applic BID TOP Last administered on 02/09/19 08:15; Admin Dose 1 APPLIC; Start 01/28/19 at 22:30 Insulin Aspart (Novolog Insulin Pen) NOVOLOG *MILD* ALGORI... Q4 SC Last administered on 02/09/19 01:46; Admin Dose 1 UNIT; Start 01/29/19 at 05:00 Albuterol/ Ipratropium (Duoneb) 3 ml Q6HWA RESP THERAPY HHN Last administered on 02/09/19 08:26; Admin Dose 3 ML; Start 01/29/19 at 14:00 Epoetin Dae-epbx (RETACRIT(non-esrd)) 40,000 unit Mo@1700 SC Last administered on 02/03/19 18:12; Admin Dose 40,000 UNIT; Start 02/03/19 at 17:00 Mupirocin (Bactroban) 1 applic BID TOP Last administered on 02/09/19 08:17; Admin Dose 1 APPLIC; Start 01/30/19 at 15:26; Stop 02/09/19 at 15:25 Insulin Glargine (Lantus) 10 units DAILY@2000 SC Last administered on 02/08/19 20:00; Admin Dose 10 UNITS; Start 01/31/19 at 20:00 Aztreonam 1 gm/ Dextrose 50 ml @ 100 mls/hr Q12 IVPB Last administered on 02/09/19 10:01; Admin Dose 100 MLS/HR; Start 02/03/19 at 21:00 Metoprolol Tartrate (Lopressor) 12.5 mg BID PO Last administered on 02/09/19 08:14; Admin Dose 12.5 MG; Start 02/05/19 at 21:00 Eye Lubricant (Refresh Plus) 1 drop QID BOTH EYES Last administered on 02/09/19 08:14; Admin Dose 1 DROP; Start 02/06/19 at 09:00 Eye Lubricant (Akwa Oint) 1 applic HS LEFT EYE Last administered on 02/08/19 21:57; Admin Dose 1 APPLIC; Start 02/06/19 at 21:00 Potassium Chloride (Potassium Chloride Pwd/Soln) 20 meq BID NGT Last adm inistered on 02/09/19 08:13; Admin Dose 20 MEQ; Start 02/06/19 at 21:00 Multi-Ingredient Ointment (Aquaphor Oint 52.5 Gm) 1 applic BID TOP Last administered on 02/09/19 08:16; Admin Dose 1 APPLIC; Start 02/06/19 at 22:40 Lansoprazole (Prevacid) 30 mg BID@0600,1800 NGT Last administered on 02/09/19 06:13; Admin Dose 30 MG; Start 02/07/19 at 18:00 Tobramycin Sulfate/Sodium Chloride (Nilesh Inhal) 300 mg BID RESP THERAPY NEB Last administered on 02/09/19 08:26; Admin Dose 300 MG; Start 02/08/19 at 09:00 Furosemide (Lasix) 20 mg BID DIURETICS IV Last administered on 02/09/19 06:03; Admin Dose 20 MG; Start 02/08/19 at 18:00 Morphine Sulfate (morphine) 0.5 mg Q4H PRN IV SEVERE PAIN LEVEL 7-10; Start 02/08/19 at 19:00 Vancomycin HCl 750 mg/Dextrose 250 ml @ 125 mls/hr Q72H IVPB ; Start 02/09/19 at 23:00 LIYA SEGUNDO February 09, 2019 12:46
--- NOTE | 2019-02-09 13:32 | PN ---
Date/Time of Note Date/Time of Note DATE: 02/09/19 TIME: 13:30 Assessment/Plan VTE Prophylaxis [place] [facility] [place] risk: 6 [place] [facility] [place] No SCD contraindicated: bilateral LE trauma Pharmacological prophylaxis: NA/contraindicated Pharm contraindication: anticoag not tolerated Lines/Catheters IV Catheter Type (from [facility] Central Line Central line still needed: Yes Urinary Cath still in place: Yes Reason Cath still needed: urinary retention Assessment/Plan Hospital Course 1. Sepsis, WBC down 2. Severe anemia 3. Chronic renal failure likely secondary to sepsis 4. Hypertension. 5. Hyperlipidemia. 6. Hypothyroidism. 7. Normocytic normochromic chronic anemia with recent hemoglobin drop. 8. Bilateral groin cellulitis more likely associated with mateus, patches in groin and axilla bilaterally. skin peeling 9. History of rheumatoid arthritis with joint deformities. 10. Diabetes type 2. 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 Peripheral vascular disease. 13. Chronic a.fib 14. right arm edema, better 15. Neoplasm per CT abdomen. 4.3 cm cystic lesion along the pancreas body, enlarged since 10/10/2012 (previously 2.4 cm). 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 16. Possible allergic skin reaction, biopsy is obtained 17. altered mental status delirium vs stroke, resolved 18. Hypernatremia 156 from 152 19. Eye muscle paralysis. Assessment/Plan - GI consult dr Frost for GT placement -WBC went down -GT flashes increase to 100 ml/4 h -start gentle IV fluids -communicated Daughter No yesterday, pt need a G tube, she is agree - dec d5 w to 50 increased today to 148 from 148 - cw [employer] 60 cc/hr, -fu speech recs - cw aztreonam/vanco/tobra -cw keppra -restraints renewed - GI proph. IV PPI -DVT prophylaxis unable to tolerate -skin care -poor prognosis Result Diagram: 02/09/1963202/09/19632 Results 24hrs Laboratory Tests Test 02/08/19 13:41 02/08/19 18:45 02/08/19 22:06 02/08/19 22:17 Bedside Glucose 131 138 152 Vancomycin Level 20.3 *H Trough Test 02/09/19 01:35 02/09/19 06:16 02/09/19 06:33 02/09/19 13:04 Bedside Glucose 162 121 106 White Blood Count 20.3 #H Red Blood Count 2.46 L Hemoglobin 7.0 L Hematocrit 23.2 L Mean Corpuscular 94.3 Volume Mean Corpuscular 28.5 L Hemoglobin Mean Corpuscular 30.2 L Hemoglobin Concent Red Cell 21.6 H Distribution Width Platelet Count 118 L Mean Platelet Volume 13.1 H Immature 0.700 H Granulocytes % Neutrophils % 90.9 H Lymphocytes % 5.6 L Monocytes % 2.3 Eosinophils % 0.4 Basophils % 0.1 Nucleated Red Blood 0.4 H Cells % Immature 0.150 H Granulocytes # Neutrophils # 18.5 H Lymphocytes # 1.1 Monocytes # 0.5 Eosinophils # 0.1 Basophils # 0.0 Nucleated Red Blood 0.1 H Cells # Sodium Level 153 H Potassium Level 4.6 Chloride Level 119 H Carbon Dioxide Level 31 Anion Gap 3 L Blood Urea Nitrogen 67 H Creatinine 1.53 H Est Glomerular Filtrat Rate mL/min Glucose Level 103 Calcium Level 7.5 L Subjective 24 Hr Interval Summary Constitutional: disoriented Exam/Review of Systems Exam Vitals Vital Signs Date Temp Pulse Resp B/P (MAP) Pulse Ox O2 O2 Flow FiO2 Time Delivery Rate 02/09/19 72 12:00 02/09/19 98.7 16 104/39 98 Nasal 11:55 (60) Cannula 02/09/19 2.0 08:35 Intake and Output 02/08/19 02/08/19 02/09/19 1515:00 23:00 07:00 IntakeIntake Total 1020 ml 810 ml OutputOutput Total 850 ml 900 ml BalanceBalance 170 ml -90 ml Exam NG tube Constitutional: alert Eyes: nl conjunctiva Neck: supple Respiratory: diminished breath sounds Gastrointestinal: soft Neurological: other (does not follow commands) Results Results 24hrs Laboratory Tests Test 02/08/19 13:41 02/08/19 18:45 02/08/19 22:06 02/08/19 22:17 Bedside Glucose 131 138 152 Vancomycin Level 20.3 *H Trough Test 02/09/19 01:35 02/09/19 06:16 02/09/19 06:33 02/09/19 13:04 Bedside Glucose 162 121 106 White Blood Count 20.3 #H Red Blood Count 2.46 L Hemoglobin 7.0 L Hematocrit 23.2 L Mean Corpuscular 94.3 Volume Mean Corpuscular 28.5 L Hemoglobin Mean Corpuscular 30.2 L Hemoglobin Concent Red Cell 21.6 H Distribution Width Platelet Count 118 L Mean Platelet Volume 13.1 H Immature 0.700 H Granulocytes % Neutrophils % 90.9 H Lymphocytes % 5.6 L Monocytes % 2.3 Eosinophils % 0.4 Basophils % 0.1 Nucleated Red Blood 0.4 H Cells % Immature 0.150 H Granulocytes # Neutrophils # 18.5 H Lymphocytes # 1.1 Monocytes # 0.5 Eosinophils # 0.1 Basophils # 0.0 Nucleated Red Blood 0.1 H Cells # Sodium Level 153 H Potassium Level 4.6 Chloride Level 119 H Carbon Dioxide Level 31 Anion Gap 3 L Blood Urea Nitrogen 67 H Creatinine 1.53 H Est Glomerular Filtrat Rate mL/min Glucose Level 103 Calcium Level 7.5 L Medications Medication Current Medications Lactulose (Enulose) 20 gm DAILY PRN PO CONSTIPATION; Start 01/17/19 at 18:17 Acetaminophen (Tylenol Tab) 650 mg Q4H PRN PO PAIN Last administered on 01/23/19at 22:48; Admin Dose 650 MG; Start 01/17/19 at 18:17 Miscellaneous Information (Pending [facility] Order For Wound Care) This patient ramirez... PRN PRN XX WOUND CARE; Start 01/17/19 at 18:17 Albuterol/ Ipratropium (Duoneb) 3 ml Q2H RESP THERAPY PRN HHN SHORTNESS OF BREATH Last administered on 02/07/19at 05:45; Admin Dose 3 ML; Start 01/17/19 at 18:17 Bisacodyl (Dulcolax) 10 mg BID PRN PO CONSTIPATION; Start 01/17/19 at 18:17; Status Hold Folic Acid (Folic Acid) 1 mg DAILY PO Last administered on 02/09/19at 08:16; Admin Dose 1 MG; Start 01/17/19 at 18:17 Latanoprost (Xalatan) 1 drop HS BOTH EYES Last administered on 02/08/19at 21:57; Admin Dose 1 DROP; Start 01/17/19 at 18:17 Nitroglycerin (Nitroglycerin (Sl Tab) 0.4 Mg) 0.4 tab Q5M PRN SL CHEST PAIN; Start 01/17/19 at 18:17 Nystatin (Nystatin Powder) 1 applic BID TOP Last administered on 02/09/19at 08:15; Admin Dose 1 APPLIC; Start 01/17/19 at 18:17 IV Flush (NS 3 ml) 3 ml PER PROTOCOL IV ; Start 01/17/19 at 18:17 Miscellaneous Information 1 ea NOTE XX ; Start 01/17/19 at 18:17 Glucose (Glutose) 15 gm Q15M PRN PO DECREASED GLUCOSE; Start 01/17/19 at 18:17 Glucose (Glutose) 22.5 gm Q15M PRN PO DECREASED GLUCOSE; Start 01/17/19 at 18:17 Dextrose (D50w Syringe) 25 ml Q15M PRN IV DECREASED GLUCOSE Last administered on 02/05/19at 09:50; Admin Dose 25 ML; Start 01/17/19 at 18:17 Dextrose (D50w Syringe) 50 ml Q15M PRN IV DECREASED GLUCOSE; Start 01/17/19 at 18:17 Glucagon (Glucagen) 1 mg Q15M PRN IM DECREASED GLUCOSE; Start 01/17/19 at 18:17 Glucose (Glutose) 15 gm Q15M PRN BUCCAL DECREASED GLUCOSE; Start 01/17/19 at 18:17 Ascorbic Acid (Vitamin C) 250 mg DAILY PO Last administered on 02/09/19at 08:16; Admin Dose 250 MG; Start 01/17/19 at 18:17 Bisacodyl (Dulcolax Supp) 10 mg DAILY PRN SC CONSTIPATION; Start 01/17/19 at 18:17 Zinc Acetate/ Diphenhydramine (Benadryl 2% Cr) 1 applic Q6H PRN TOP ITCHING Last administered on 01/26/19at 07:54; Admin Dose 1 APPLIC; Start 01/19/19 at 16:37 IV Flush (NS 10 ml) 10 ml PRN PRN IV IV PROTOCOL; Start 01/20/19 at 14:30 Cyanocobalamin (Vitamin B12 Inj) 1,000 mcg Q7D IM Last administered on 02/03/19at 08:14; Admin Dose 1,000 MCG; Start 02/03/19 at 09:00 Metoprolol Tartrate (Lopressor) 5 mg Q4H PRN IV HR>110 Hold SBP<100; Start 01/26/19 at 14:30 Vancomycin HCl (Vanco Iv Per Pharmacy) VANCOMYCIN PER PHARMACY PER PROTOCOL XX ; Start 01/27/19 at 12:00 Enoxaparin Sodium (Lovenox) 60 mg DAILY SC Last administered on 02/03/19 08:06; Admin Dose 60 MG; Start 01/28/19 at 09:00; Status Hold Lorazepam (Ativan) 1 mg Q2 PRN IV SEIZURES Last administered on 02/09/19 04:5 1; Admin Dose 1 MG; Start 01/27/19 at 14:00 Atorvastatin Calcium (Lipitor) 40 mg QHS NGT Last administered on 02/08/19 21:56; Admin Dose 40 MG; Start 01/28/19 at 21:00 Docusate Sodium (Colace Liquid Cup) 100 mg BID NGT ; Start 01/27/19 at 22:00; Status Hold Terazosin HCl (Hytrin) 10 mg HS NGT Last administered on 02/08/19 22:27; Admin Dose 10 MG; Start 01/28/19 at 21:00 Levetiracetam 100 ml @ 400 mls/hr Q12 IVPB Last administered on 02/09/19 08:14; Admin Dose 400 MLS/HR; Start 01/28/19 at 09:00 Levothyroxine Sodium (Synthroid) 125 mcg BEFORE BREAKFAST NGT Last administered on 02/09/19 06:02; Admin Dose 125 MCG; Start 01/28/19 at 07:00 Ferrous Sulfate (Feosol Liquid Cup) 300 mg WITH MEALS GTB Last administered on 02/09/19 12:01; Admin Dose 300 MG; Start 01/28/19 at 11:30 Multivitamins (Multivitamin) 30 ml DAILY GTB Last administered on 02/09/19 08:13; Admin Dose 30 ML; Start 01/28/19 at 11:00 Diagnostic Test (Pha) (Accu-Chek) 1 ea Q4 XX Last administered on 02/09/19 07:52; Admin Dose 1 EA; Start 01/28/19 at 13:00 Nystatin/ Triamcinolone Acetonide (Mycolog Oint) 1 applic BID TOP Last administered on 02/09/19 08:15; Admin Dose 1 APPLIC; Start 01/28/19 at 22:30 Insulin Aspart (Novolog Insulin Pen) NOVOLOG *MILD* ALGORI... Q4 SC Last administered on 02/09/19 01:46; Admin Dose 1 UNIT; Start 01/29/19 at 05:00 Albuterol/ Ipratropium (Duoneb) 3 ml Q6HWA RESP THERAPY HHN Last administered on 02/09/19 08:26; Admin Dose 3 ML; Start 01/29/19 at 14:00 Epoetin Dae-epbx (RETACRIT(non-esrd)) 40,000 unit Mo@1700 SC Last administered on 02/03/19 18:12; Admin Dose 40,000 UNIT; Start 02/03/19 at 17:00 Mupirocin (Bactroban) 1 applic BID TOP Last administered on 02/09/19 08:17; Admin Dose 1 APPLIC; Start 01/30/19 at 15:26; Stop 02/09/19 at 15:25 Insulin Glargine (Lantus) 10 units DAILY@2000 SC Last administered on 02/08/19 20:00; Admin Dose 10 UNITS; Start 01/31/19 at 20:00 Aztreonam 1 gm/ Dextrose 50 ml @ 100 mls/hr Q12 IVPB Last administered on 02/09/19 10:01; Admin Dose 100 MLS/HR; Start 02/03/19 at 21:00 Metoprolol Tartrate (Lopressor) 12.5 mg BID PO Last administered on 02/09/19 08:14; Admin Dose 12.5 MG; Start 02/05/19 at 21:00 Eye Lubricant (Refresh Plus) 1 drop QID BOTH EYES Last administered on 02/09/19 08:14; Admin Dose 1 DROP; Start 02/06/19 at 09:00 Eye Lubricant (Akwa Oint) 1 applic HS LEFT EYE Last administered on 02/08/19 21:57; Admin Dose 1 APPLIC; Start 02/06/19 at 21:00 Potassium Chloride (Potassium Chloride Pwd/Soln) 20 meq BID NGT Last administered on 02/09/19 08:13; Admin Dose 20 MEQ; Start 02/06/19 at 21:00 Multi-Ingredient Ointment (Aquaphor Oint 52.5 Gm) 1 applic BID TOP Last administered on 02/09/19 08:16; Admin Dose 1 APPLIC; Start 02/06/19 at 22:40 Lansoprazole (Prevacid) 30 mg BID@0600,1800 NGT Last administered on 02/09/19 06:13; Admin Dose 30 MG; Start 02/07/19 at 18:00 Tobramycin Sulfate/Sodium Chloride (Nilesh Inhal) 300 mg BID RESP THERAPY NEB Last administered on 02/09/19 08:26; Admin Dose 300 MG; Start 02/08/19 at 09:00 Furosemide (Lasix) 20 mg BID DIURETICS IV Last administered on 02/09/19at 06:0 3; Admin Dose 20 MG; Start 02/08/19 at 18:00 Morphine Sulfate (morphine) 0.5 mg Q4H PRN IV SEVERE PAIN LEVEL 7-10; Start 02/08/19 at 19:00 Vancomycin HCl 750 mg/Dextrose 250 ml @ 125 mls/hr Q72H IVPB ; Start 02/09/19 at 23:00 COOPER CARO February 09, 2019 13:32
--- NOTE | 2019-02-09 13:44 | CONS ---
Assessment/Plan Assessment/Plan Hospital Course (Demo Recall) 88 yo male presents from [facility] for SOB and febrile interval hx: pt is lethargic, congested cough. hgb 7.0, pending one unit. Large brown bm this am with signs of GI bleeding. 1. Severe anemia likely due to chronic disease, last work up while admitted to [facility] about a week ago was neg for GI bleeding, including EGD/colon which was done -s/p EGD and colonoscopy by Dr Frost 01/09/19 which didn't find an obvious GI etiology to explain anemia. AVM or a small lesion could be missed due to poor prep. Pt likely needs capsule endoscopy -Neg fob, elevate retic, Low iron, tibc, [place] [id number] 2. Cystic lesion along pancreas body - 4.3 cm cystic lesion along the pancreas body, enlarged since 10/10/2012 (previously 2.4 cm). 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 -CEA wnl 3. Severe gastritis 4. Hemorrhoids 5. Hital hernia 6. A fib, -eliquis was stopped 01/06 during previous admission, on ASA 7. COPD 8. HTN 9. Hypothyroidism 10. Bilateral groin cellulitis 11. Rheumatoid arthritis. 12. Diabetes mellitus. 13. Peripheral vascular disease. 14. CHF 15. 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 Sepsis secondary to pneumonia 18. Encephalopathy secondary to sepsis 19. Hypothermia 20. Coagulopathy -INR 1.77 Plan: Monitor HH and replace as needed Consider push endoscopy because pt is having continued unexplained severe anemia Pt will need outpatient EUS to evaluate pancreatic mass Recommend capsule endoscopy as outpatient Pt examined and plan of care discussed with Dr. Frost Consultation Date/Type/Reason Admit Date/Time Jan 17, 2019 at 15:58 Initial Consult Date 01/18/19 Requesting Provider: IVAN AKHTAR MD Date/Time of Note DATE: 02/09/19 TIME: 13:42 Exam/Review of Systems Exam Vitals Vital Signs Date Temp Pulse Resp B/P (MAP) Pulse Ox O2 O2 Flow FiO2 Time Delivery Rate 02/09/19 72 12:00 02/09/19 98.7 16 104/39 98 Nasal 11:55 (60) Cannula 02/09/19 2.0 08:35 Intake and Output 02/08/19 02/08/1902/09/19 1515:00 23:00 07:00 IntakeIntake Total 1020 ml 810 ml OutputOutput Total 850 ml 900 ml BalanceBalance 170 ml -90 ml Respiratory: diminished breath sounds Cardiovascular: regular rate and rhythm Gastrointestinal: soft, non-tender, bowel sounds Musculoskeletal: other (anasarca) Neurological: lethargic Skin: other (skin is peeling off) Results Result Diagram: 02/09/19 0633 02/09/19 0633 Results 24hrs Laboratory Tests Test 02/08/19 18:45 02/08/19 22:06 02/08/19 22:17 02/09/19 01:35 Bedside Glucose 138 152 162 Vancomycin Level 20.3 *H Trough Test 02/09/19 06:16 02/09/19 06:33 02/09/19 13:04 Bedside Glucose 121 106 White Blood Count 20.3 #H Red Blood Count 2.46 L Hemoglobin 7.0 L Hematocrit 23.2 L Mean Corpuscular 94.3 Volume Mean Corpuscular 28.5 L Hemoglobin Mean Corpuscular 30.2 L Hemoglobin Concent Red Cell 21.6 H Distribution Width Platelet Count 118 L Mean Platelet Volume 13.1 H Immature 0.700 H Granulocytes % Neutrophils % 90.9 H Lymphocytes % 5.6 L Monocytes % 2.3 Eosinophils % 0.4 Basophils % 0.1 Nucleated Red Blood 0.4 H Cells % Immature 0.150 H Granulocytes # Neutrophils # 18.5 H Lymphocytes # 1.1 Monocytes # 0.5 Eosinophils # 0.1 Basophils # 0.0 Nucleated Red Blood 0.1 H Cells # Sodium Level 153 H Potassium Level 4.6 Chloride Level 119 H Carbon Dioxide Level 31 Anion Gap 3 L Blood Urea Nitrogen 67 H Creatinine 1.53 H Est Glomerular Filtrat Rate mL/min Glucose Level 103 Calcium Level 7.5 L Medications Medication Current Medications Lactulose (Enulose) 20 gm DAILY PRN PO CONSTIPATION; Start 01/17/19 at 18:17 Acetaminophen (Tylenol Tab) 650 mg Q4H PRN PO PAIN Last administered on 01/23/19at 22:48; Admin Dose 650 MG; Start 01/17/19 at 18:17 Miscellaneous Information ([facility] This patient ramirez... PRN PRN XX WOUND CARE; Start 01/17/19 at 18:17 Albuterol/ Ipratropium (Duoneb) 3 ml Q2H RESP THERAPY PRN HHN SHORTNESS OF BREATH Last administered on 02/07/19at 05:45; Admin Dose 3 ML; Start 01/17/19 at 18:17 Bisacodyl (Dulcolax) 10 mg BID PRN PO CONSTIPATION; Start 01/17/19 at 18:17; Status Hold Folic Acid (Folic Acid) 1 mg DAILY PO Last administered on 02/09/19at 08:16; Admin Dose 1 MG; Start 01/17/19 at 18:17 Latanoprost (Xalatan) 1 drop HS BOTH EYES Last administered on 02/08/19at 21:57; Admin Dose 1 DROP; Start 01/17/19 at 18:17 Nitroglycerin (Nitroglycerin (Sl Tab) 0.4 Mg) 0.4 tab Q5M PRN SL CHEST PAIN; Start 01/17/19 at 18:17 Nystatin (Nystatin Powder) 1 applic BID TOP Last administered on 02/09/19at 08:15; Admin Dose 1 APPLIC; Start 01/17/19 at 18:17 IV Flush (NS 3 ml) 3 ml PER PROTOCOL IV ; Start 01/17/19 at 18:17 Miscellaneous Information 1 ea NOTE XX ; Start 01/17/19 at 18:17 Glucose (Glutose) 15 gm Q15M PRN PO DECREASED GLUCOSE; Start 01/17/19 at 18:17 Glucose (Glutose) 22.5 gm Q15M PRN PO DECREASED GLUCOSE; Start 01/17/19 at 18:17 Dextrose (D50w Syringe) 25 ml Q15M PRN IV DECREASED GLUCOSE Last administered on 02/05/19at 09:50; Admin Dose 25 ML; Start 01/17/19 at 18:17 Dextrose (D50w Syringe) 50 ml Q15M PRN IV DECREASED GLUCOSE; Start 01/17/19 at 18:17 Glucagon (Glucagen) 1 mg Q15M PRN IM DECREASED GLUCOSE; Start 01/17/19 at 18:17 Glucose (Glutose) 15 gm Q15M PRN BUCCAL DECREASED GLUCOSE; Start 01/17/19 at 18:17 Ascorbic Acid (Vitamin C) 250 mg DAILY PO Last administered on 02/09/19at 08:16; Admin Dose 250 MG; Start 01/17/19 at 18:17 Bisacodyl (Dulcolax Supp) 10 mg DAILY PRN AR CONSTIPATION; Start 01/17/19 at 18:17 Zinc Acetate/ Diphenhydramine (Benadryl 2% Cr) 1 applic Q6H PRN TOP ITCHING Last administered on 01/26/19 07:54; Admin Dose 1 APPLIC; Start 01/19/19 at 16:37 IV Flush (NS 10 ml) 10 ml PRN PRN IV IV PROTOCOL; Start 01/20/19 at 14:30 Cyanocobalamin (Vitamin B12 Inj) 1,000 mcg Q7D IM Last administered on 02/03/19 08:14; Admin Dose 1,000 MCG; Start 02/03/19 at 09:00 Metoprolol Tartrate (Lopressor) 5 mg Q4H PRN IV HR>110 Hold SBP<100; Start 01/26 at 14:30 Vancomycin HCl (Vanco Iv Per Pharmacy) VANCOMYCIN PER PHARMACY PER PROTOCOL XX ; Start 01/27/19 at 12:00 Enoxaparin Sodium (Lovenox) 60 mg DAILY SC Last administered on 02/03/19 08:06; Admin Dose 60 MG; Start 01/28/19 at 09:00; Status Hold Lorazepam (Ativan) 1 mg Q2 PRN IV SEIZURES Last administered on 02/09/19 04:51; Admin Dose 1 MG; Start 01/27/19 at 14:00 Atorvastatin Calcium (Lipitor) 40 mg QHS NGT Last administered on 02/08/19 21:56; Admin Dose 40 MG; Start 01/28/19 at 21:00 Docusate Sodium (Colace Liquid Cup) 100 mg BID NGT ; Start 01/27/19 at 22:00; Status Hold Terazosin HCl (Hytrin) 10 mg HS NGT Last administered on 02/08/19 22:27; Admin Dose 10 MG; Start 01/28/19 at 21:00 Levetiracetam 100 ml @ 400 mls/hr Q12 IVPB Last administered on 02/09/19 08:14; Admin Dose 400 MLS/HR; Start 01/28/19 at 09:00 Levothyroxine Sodium (Synthroid) 125 mcg BEFORE BREAKFAST NGT Last administered on 02/09/19 06:02; Admin Dose 125 MCG; Start 01/28/19 at 07:00 Ferrous Sulfate (Feosol Liquid Cup) 300 mg WITH MEALS GTB Last administered on 02/09/19 12:01; Admin Dose 300 MG; Start 01/28/19 at 11:30 Multivitamins (Multivitamin) 30 ml DAILY GTB Last administered on 02/09/19 08 :13; Admin Dose 30 ML; Start 01/28/19 at 11:00 Diagnostic Test (Pha) (Accu-Chek) 1 ea Q4 XX Last administered on 02/09/19 13:40; Admin Dose 1 EA; Start 01/28/19 at 13:00 Nystatin/ Triamcinolone Acetonide (Mycolog Oint) 1 applic BID TOP Last administered on 02/09/19 08:15; Admin Dose 1 APPLIC; Start 01/28/19 at 22:30 Insulin Aspart (Novolog Insulin Pen) NOVOLOG *MILD* ALGORI... Q4 SC Last administered on 02/09/19 01:46; Admin Dose 1 UNIT; Start 01/29/19 at 05:00 Albuterol/ Ipratropium (Duoneb) 3 ml Q6HWA RESP THERAPY HHN Last administered on 02/09/19 08:26; Admin Dose 3 ML; Start 01/29/19 at 14:00 Epoetin Dae-epbx (RETACRIT(non-esrd)) 40,000 unit Mo@1700 SC Last administered on 02/03/19 18:12; Admin Dose 40,000 UNIT; Start 02/03/19 at 17:00 Mupirocin (Bactroban) 1 applic BID TOP Last administered on 02/09/19 08:17; Admin Dose 1 APPLIC; Start 01/30/19 at 15:26; Stop 02/09/19 at 15:25 Insulin Glargine (Lantus) 10 units DAILY@2000 SC Last administered on 02/08/19 20:00; Admin Dose 10 UNITS; Start 01/31/19 at 20:00 Aztreonam 1 gm/ Dextrose 50 ml @ 100 mls/hr Q12 IVPB Last administered on 02/09/19 10:01; Admin Dose 100 MLS/HR; Start 02/03/19 at 21:00 Metoprolol Tartrate (Lopressor) 12.5 mg BID PO Last administered on 02/09/19 08:14; Admin Dose 12.5 MG; Start 02/05/19 at 21:00 Eye Lubricant (Refresh Plus) 1 drop QID BOTH EYES Last administered on 02/09/19 08:14; Admin Dose 1 DROP; Start 02/06/19 at 09:00 Eye Lubricant (Akwa Oint) 1 applic HS LEFT EYE Last administered on 02/08/19 21:57; Admin Dose 1 APPLIC; Start 02/06/19 at 21:00 Potassium Chloride (Potassium Chloride Pwd/Soln) 20 meq BID NGT Last administered on 02/09/19 08:13; Admin Dose 20 MEQ; Start 02/06/19 at 21:00 Multi-Ingredient Ointment (Aquaphor Oint 52.5 Gm) 1 applic BID TOP Last administered on 02/09/19 08:16; Admin Dose 1 APPLIC; Start 02/06/19 at 22:40 Lansoprazole (Prevacid) 30 mg BID@0600,1800 NGT Last administered on 02/09/19 06:13; Admin Dose 30 MG; Start 02/07/19 at 18:00 Tobramycin Sulfate/Sodium Chloride (Nilesh Inhal) 300 mg BID RESP THERAPY NEB Last administered on 02/09/19 08:26; Admin Dose 300 MG; Start 02/08/19 at 09:00 Furosemide (Lasix) 20 mg BID DIURETICS IV Last administered on 02/09/19 06:03; Admin Dose 20 MG; Start 02/08/19 at 18:00 Morphine Sulfate (morphine) 0.5 mg Q4H PRN IV SEVERE PAIN LEVEL 7-10; Start 02/08/19 at 19:00 Vancomycin HCl 750 mg/Dextrose 250 ml @ 125 mls/hr Q72H IVPB ; Start 02/09/19 at 23:00 Dextrose 1,000 ml @ 40 mls/hr Q24H IV ; Start 02/09/19 at 14:00; Status UNGISELLA CALDWELL February 09, 2019 13:44
[2019-02-09] MEDS ORDERED: DEXTROSE 5% 1,000 ML IV SCH (14:00)
--- NOTE | 2019-02-09 14:48 | CONS ---
Assessment/Plan Assessment/Plan Hospital Course (Demo Recall) Late entry for 02/08/19 1230 Awake, restless, no fevers over night Skin biopsy revealed no evidence of vasculitis no evidence of malignancy. Please see full report in chart Wound culture grew Corynebacterium species. Sputum culture grew E. coli C dif neg Antimicrobials: Vancomycin, aztreonam, tobramycin inhalation Indwelling: Left subclavian triple-lumen catheter, Wade catheter, NG tube Allergy: Penicillin, sulfa Physical examination: Obese well-developed chronically ill-appearing - [place] man who is lethargic, in no distress. Head atraumatic normocephalic sclera nonicteric. Neck is supple chest rise symmetrical breath sounds diminished bases. Heart: S1-S2. Abdomen obese soft bowel sounds present extremities without cyanosis, bilateral edema Assessment: 1. Severe sepsis s/p shock 2. Acute encephalopathy 3. Seizures 4. Healthcare acquired, possible aspiration pneumonia 5. Coronary artery disease/history of CABG 6. Advanced rheumatoid arthritis 5. Chronic atrial fibrillation 6. Diabetes 7. BPH 9. Acute on chronic anemia===> s/p EGD/colonoscopy 01/09/19 10. Status post right epididymitis 11. Pancreatic lesion per CT, unlikely neoplasm per oncology notes 12. 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, s/p punch bx Plan: Clinically unchanged, continue present care, repeat cxr in am, follow skin biopsy results== sent to [facility] for final identification Consultation Date/Type/Reason Admit Date/Time Jan 17, 2019 at 15:58 Initial Consult Date 01/18/19 Type of Consult id Requesting Provider: IVAN AKHTAR MD Date/Time of Note DATE: 02/09/19 TIME: 14:46 Exam/Review of Systems Exam Vitals Vital Signs Date Temp Pulse Resp B/P (MAP) Pulse Ox O2 O2 Flow FiO2 Time Delivery Rate 02/09/19 81 20 100 Nasal 2.0 14:21 Cannula 02/09/19 98.7 104/39 11:55 (60) Intake and Output 02/08/19 02/08/19 02/09/19 1515:00 23:00 07:00 IntakeIntake Total 1020 ml 810 ml OutputOutput Total 850 ml 900 ml BalanceBalance 170 ml -90 ml Results Result Diagram: 02/09/19 0633 02/09/19 0633 Results 24hrs Laboratory Tests Test 02/08/19 18:45 02/08/19 22:06 02/08/19 22:17 02/09/19 01:35 Bedside Glucose 138 152 162 Vancomycin Level 20.3 *H Trough Test 02/09/19 06:16 02/09/19 06:33 02/09/19 13:04 Bedside Glucose 121 106 White Blood Count 20.3 #H Red Blood Count 2.46 L Hemoglobin 7.0 L Hematocrit 23.2 L Mean Corpuscular 94.3 Volume Mean Corpuscular 28.5 L Hemoglobin Mean Corpuscular 30.2 L Hemoglobin Concent Red Cell 21.6 H Distribution Width Platelet Count 118 L Mean Platelet Volume 13.1 H Immature 0.700 H Granulocytes % Neutrophils % 90.9 H Lymphocytes % 5.6 L Monocytes % 2.3 Eosinophils % 0.4 Basophils % 0.1 Nucleated Red Blood 0.4 H Cells % Immature 0.150 H Granulocytes # Neutrophils # 18.5 H Lymphocytes # 1.1 Monocytes # 0.5 Eosinophils # 0.1 Basophils # 0.0 Nucleated Red Blood 0.1 H Cells # Sodium Level 153 H Potassium Level 4.6 Chloride Level 119 H Carbon Dioxide Level 31 Anion Gap 3 L Blood Urea Nitrogen 67 H Creatinine 1.53 H Est Glomerular Filtrat Rate mL/min Glucose Level 103 Calcium Level 7.5 L Medications Medication Current Medications Lactulose (Enulose) 20 gm DAILY PRN PO CONSTIPATION; Start 01/17/19 at 18:17 Acetaminophen (Tylenol Tab) 650 mg Q4H PRN PO PAIN Last administered on 01/23/19at 22:48; Admin Dose 650 MG; Start 01/17/19 at 18:17 Miscellaneous Information (Pending Santyl Order For Wound Care) This patient ramirez... PRN PRN XX WOUND CARE; Start 01/17/19 at 18:17 Albuterol/ Ipratropium (Duoneb) 3 ml Q2H RESP THERAPY PRN HHN SHORTNESS OF BREATH Last administered on 02/07/19at 05:45; Admin Dose 3 ML; Start 01/17/19 at 18:17 Bisacodyl (Dulcolax) 10 mg BID PRN PO CONSTIPATION; Start 01/17/19 at 18:17; Status Hold Folic Acid (Folic Acid) 1 mg DAILY PO Last administered on 02/09/19 08:16; Admin Dose 1 MG; Start 01/17/19 at 18:17 Latanoprost (Xalatan) 1 drop HS BOTH EYES Last administered on 02/08/19at 21:57; Admin Dose 1 DROP; Start 01/17/19 at 18:17 Nitroglycerin (Nitroglycerin (Sl Tab) 0.4 Mg) 0.4 tab Q5M PRN SL CHEST PAIN; Start 01/17/19 at 18:17 Nystatin (Nystatin Powder) 1 applic BID TOP Last administered on 02/09/19at 08:15; Admin Dose 1 APPLIC; Start 01/17/19 at 18:17 IV Flush (NS 3 ml) 3 ml PER PROTOCOL IV ; Start 01/17/19 at 18:17 Miscellaneous Information 1 ea NOTE XX ; Start 01/17/19 at 18:17 Glucose (Glutose) 15 gm Q15M PRN PO DECREASED GLUCOSE; Start 01/17/19 at 18:17 Glucose (Glutose) 22.5 gm Q15M PRN PO DECREASED GLUCOSE; Start 01/17/19 at 18:17 Dextrose (D50w Syringe) 25 ml Q15M PRN IV DECREASED GLUCOSE Last administered on 02/05/19at 09:50; Admin Dose 25 ML; Start 01/17/19 at 18:17 Dextrose (D50w Syringe) 50 ml Q15M PRN IV DECREASED GLUCOSE; Start 01/17/19 at 18:17 Glucagon (Glucagen) 1 mg Q15M PRN IM DECREASED GLUCOSE; Start 01/17/19 at 18:17 Glucose (Glutose) 15 gm Q15M PRN BUCCAL DECREASED GLUCOSE; Start 01/17/19 at 18:17 Ascorbic Acid (Vitamin C) 250 mg DAILY PO Last administered on 02/09/19at 08:16; Admin Dose 250 MG; Start 01/17/19 at 18:17 Bisacodyl (Dulcolax Supp) 10 mg DAILY PRN [place] CONSTIPATION; Start 01/17/19 at 18:17 Zinc Acetate/ Diphenhydramine (Benadryl 2% Cr) 1 applic Q6H PRN TOP ITCHING Last administered on 01/26/19at 07:54; Admin Dose 1 APPLIC; Start 01/19/19 at 16:37 IV Flush (NS 10 ml) 10 ml PRN PRN IV IV PROTOCOL; Start 01/20/19 at 14:30 Cyanocobalamin (Vitamin B12 Inj) 1,000 mcg Q7D IM Last administered on 02/03/19 08:14; Admin Dose 1,000 MCG; Start 02/03/19 at 09:00 Metoprolol Tartrate (Lopressor) 5 mg Q4H PRN IV HR>110 Hold SBP<100; Start 01/26/19 at 14:30 Vancomycin HCl (Vanco Iv Per Pharmacy) VANCOMYCIN PER PHARMACY PER PROTOCOL XX ; Start 01/27/19 at 12:00 Enoxaparin Sodium (Lovenox) 60 mg DAILY SC Last administered on 02/03/19 08:06; Admin Dose 60 MG; Start 01/28/19 at 09:00; Status Hold Lorazepam (Ativan) 1 mg Q2 PRN IV SEIZURES Last administered on 02/09/19 04:51; Admin Dose 1 MG; Start 01/27/19 at 14:00 Atorvastatin Calcium (Lipitor) 40 mg QHS NGT Last administered on 02/08/19 21:56; Admin Dose 40 MG; Start 01/28/19 at 21:00 Docusate Sodium (Colace Liquid Cup) 100 mg BID NGT ; Start 01/27/19 at 22:00; Status Hold Terazosin HCl (Hytrin) 10 mg HS NGT Last administered on 02/08/19 22:27; Admin Dose 10 MG; Start 01/28/19 at 21:00 Levetiracetam 100 ml @ 400 mls/hr Q12 IVPB Last administered on 02/09/19 08:14; Admin Dose 400 MLS/HR; Start 01/28/19 at 09:00 Levothyroxine Sodium (Synthroid) 125 mcg BEFORE BREAKFAST NGT Last administered on 02/09/19 06:02; Admin Dose 125 MCG; Start 01/28/19 at 07:00 Ferrous Sulfate (Feosol Liquid Cup) 300 mg WITH MEALS GTB Last administered on 02/09/19 12:01; Admin Dose 300 MG; Start 01/28/19 at 11:30 Multivitamins (Multivitamin) 30 ml DAILY GTB Last administered on 02/09/19 08:13; Admin Dose 30 ML; Start 01/28/19 at 11:00 Diagnostic Test (Pha) (Accu-Chek) 1 ea Q4 XX Last administered on 02/09/19 13:40; Admin Dose 1 EA; Start 01/28/19 at 13:00 Nystatin/ Triamcinolone Acetonide (Mycolog Oint) 1 applic BID TOP Last administered on 02/09/19 08:15; Admin Dose 1 APPLIC; Start 01/28/19 at 22:30 Insulin Aspart (Novolog Insulin Pen) NOVOLOG *MILD* ALGORI... Q4 SC Last administered on 02/09/19 01:46; Admin Dose 1 UNIT; Start 01/29/19 at 05:00 Albuterol/ Ipratropium (Duoneb) 3 ml Q6HWA RESP THERAPY HHN Last administered on 02/09/19 14:10; Admin Dose 3 ML; Start 01/29/19 at 14:00 Epoetin Dae-epbx (RETACRIT(non-esrd)) 40,000 unit Mo@1700 SC Last administered on 02/03/19 18:12; Admin Dose 40,000 UNIT; Start 02/03/19 at 17:00 Mupirocin (Bactroban) 1 applic BID TOP Last administered on 02/09/19 08:17; Admin Dose 1 APPLIC; Start 01/30/19 at 15:26; Stop 02/09/19 at 15:25 Insulin Glargine (Lantus) 10 units DAILY@2000 SC Last administered on 02/08/19 20:00; Admin Dose 10 UNITS; Start 01/31/19 at 20:00 Aztreonam 1 gm/ Dextrose 50 ml @ 100 mls/hr Q12 IVPB Last administered on 02/09/19 10:01; Admin Dose 100 MLS/HR; Start 02/03/19 at 21:00 Metoprolol Tartrate (Lopressor) 12.5 mg BID PO Last administered on 02/09/19 08:14; Admin Dose 12.5 MG; Start 02/05/19 at 21:00 Eye Lubricant (Refresh Plus) 1 drop QID BOTH EYES Last administered on 02/09/19 08:14; Admin Dose 1 DROP; Start 02/06/19 at 09:00 Eye Lubricant (Akwa Oint) 1 applic HS LEFT EYE Last administered on 02/08/19 21:57; Admin Dose 1 APPLIC; Start 02/06/19 at 21:00 Potassium Chloride (Potassium Chloride Pwd/Soln) 20 meq BID NGT Last administered on 02/09/19 08:13; Admin Dose 20 MEQ; Start 02/06/19 at 21:00 Multi-Ingredient Ointment (Aquaphor Oint 52.5 Gm) 1 applic BID TOP Last administered on 02/09/19 08:16; Admin Dose 1 APPLIC; Start 02/06/19 at 22:40 Lansoprazole (Prevacid) 30 mg BID@0600,1800 NGT Last administered on 02/09/19 06:13; Admin Dose 30 MG; Start 02/07/19 at 18:00 Tobramycin Sulfate/Sodium Chloride (Nilesh Inhal) 300 mg BID RESP THERAPY NEB Last administered on 02/09/19 08:26; Admin Dose 300 MG; Start 02/08/19 at 09:00 Furosemide (Lasix) 20 mg BID DIURETICS IV Last administered on 02/09/19 06:03; Admin Dose 20 MG; Start 02/08/19 at 18:00 Morphine Sulfate (morphine) 0.5 mg Q4H PRN IV SEVERE PAIN LEVEL 7-10; Start 02/08/19 at 19:00 Vancomycin HCl 750 mg/Dextrose 250 ml @ 125 mls/hr Q72H IVPB ; Start 02/09/19 at 23:00 Dextrose 1,000 ml @ 40 mls/hr Q24H IV Last administered on 02/09/19 14:17; Admin Dose 40 MLS/HR; Start 02/09/19 at 14:00 LUCIAN HARKINS NP February 09, 2019 14:48
[2019-02-09] MEDS ORDERED: LORAZEPAM 2 MG INJ IV ONE (21:00)
[2019-02-09] MEDS: ATORVASTATIN 40 MG TAB NGT SCH (21:01)
[2019-02-09] MEDS: TERAZOSIN 5 MG CAP NGT SCH (21:01)
[2019-02-09] MEDS: LATANOPROST 0.005% 2.5 ML OPH BOTH EYES SCH (21:15)
[2019-02-09] MEDS: OCULAR LUBRICANT 3.5 GM OPH OINT LEFT EYE SCH (21:16)
[2019-02-09] MEDS: INSULIN GLARGINE [LANTus] (100 UNITS/ML) SYG SC SCH (22:16)
[2019-02-09] MEDS: VANCOMYCIN 750 MG in DEXTROSE 5% 250 ML IVPB SCH (22:56)
[2019-02-10] VITALS (40 sets, daily range): BP systolic 75–121; BP diastolic 36–101; PULSE 59–105; RESP 15–37
[2019-02-10] MEDS: INSULIN ASPART [NOVOLOG] 3 ML PEN SC SCH ×6 (01:00→21:00)
[2019-02-10] MEDS: ACCU-CHEK XX SCH ×6 (01:00→21:29)
[2019-02-10] MEDS: LEVOTHYROXINE 125 MCG TAB NGT SCH (06:01)
[2019-02-10] MEDS: LANSOPRAZOLE 30 MG CAP NGT SCH ×2 (06:01→18:09)
[2019-02-10] MEDS: FUROSEMIDE 20 MG INJ IV SCH ×2 (06:04→18:05)
[2019-02-10] MEDS: ALBUTEROL/IPRATROPIUM (NEB) 3 ML AMP HHN SCH ×3 (07:48→19:48)
[2019-02-10] MEDS: TOBRAMYCIN/0.25NS 300 MG/5 ML INHAL NEB SCH ×2 (08:28→19:48)
[2019-02-10] MEDS ORDERED: FUROSEMIDE 40 MG INJ IV ONE (08:30)
[2019-02-10] MEDS: CARBOXYMETHYLCELLULOSE 0.5% 0.4 ML OPH BOTH EYES SCH ×3 (09:00→20:58)
[2019-02-10] MEDS: LEVETIRACETAM 500 MG (PMX) 100 ML IVPB SCH ×2 (09:03→21:00)
--- NOTE | 2019-02-10 09:04 | CONS ---
Assessment/Plan Assessment/Plan Hospital Course (Demo Recall) 88 [facility] and febrile interval hx: Pt appears more encephalopathic than yesterday. Using accessory muscles to breathe. congested breath sounds. 2L NC with O2 charted at 98%. Family has consented to PEG but pt does not look stable. He is tolerating tube feeds through NGT. He is having bm with no evidence of GI bleeding 1. Severe anemia likely due to chronic disease, last work up while admitted to [facility] about a week ago was neg for GI bleeding, including EGD/colon which was done -s/p EGD and colonoscopy by Dr Frost 01/09/19 which didn't find an obvious GI etiology to explain anemia. AVM or a small lesion could be missed due to poor prep. Pt likely needs capsule endoscopy -Neg fob, elevate retic, Low iron, tibc, [place] [address] 2. Cystic lesion along pancreas body - 4.3 cm cystic lesion along the pancreas body, enlarged since 10/10/2012 (previously 2.4 cm). 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 -CEA wnl 3. Severe gastritis 4. Hemorrhoids 5. Hital hernia 6. A fib, -eliquis was stopped 01/06 during previous admission, on ASA 7. COPD 8. HTN 9. Hypothyroidism 10. Bilateral groin cellulitis 11. Rheumatoid arthritis. 12. Diabetes mellitus. 13. Peripheral vascular disease. 14. CHF 15. 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 Sepsis secondary to pneumonia 18. Encephalopathy secondary to sepsis 19. Hypothermia 20. Coagulopathy -INR 1.77 Plan: Family has consented to PEG but pt does not appear stable. Will re assess later in day Monitor HH and replace as needed Consider push endoscopy because pt is having continued unexplained severe anemia Pt will need outpatient EUS to evaluate pancreatic mass Recommend capsule endoscopy as outpatient Pt examined and plan of care discussed with Dr. Frost Consultation Date/Type/Reason Admit Date/Time Jan 17, 2019 at 15:58 Initial Consult Date 01/18/19 Requesting Provider: IVAN AKHTAR MD Date/Time of Note DATE: 02/10/19 TIME: 09:00 Exam/Review of Systems Exam Vitals Vital Signs Date Temp Pulse Resp B/P (MAP) Pulse Ox O2 O2 Flow FiO2 Time Delivery Rate 02/10/19 80 98 Nasal 2.0 08:29 Cannula 02/10/19 21 07:48 02/10/19 98.0 108/53 07:17 (71) Intake and Output 02/09/19 02/09/19 02/10/19 1414:59 22:59 06:59 IntakeIntake Total 1760 ml 1230 ml OutputOutput Total 500 ml 1150 ml BalanceBalance 1260 ml 80 ml Respiratory: congested cough, labored breathing Cardiovascular: regular rate and rhythm Gastrointestinal: soft, non-tender Neurological: lethargic, other (Does not interact in conversation or respond to commands) Results Result Diagram: 02/10/19 0537 02/10/19 0537 Results 24hrs Laboratory Tests Test 02/09/19 13:04 02/09/19 17:57 02/09/19 21:38 02/10/19 01:03 Bedside Glucose 106 125 137 158 Test 02/10/19 05:07 02/10/19 05:37 02/10/19 07:25 02/10/19 08:31 Bedside Glucose 159 152 White Blood Count 16.1 #H Red Blood Count 2.70 L Hemoglobin 7.9 L Hematocrit 25.8 L Mean Corpuscular 95.6 Volume Mean Corpuscular 29.3 Hemoglobin Mean Corpuscular 30.6 L Hemoglobin Concen t Red Cell 21.1 H Distribution Width Platelet Count 117 L Mean Platelet 13.8 H Volume Immature 0.700 H Granulocytes % Neutrophils % Lymphocytes % Monocytes % Eosinophils % Basophils % Nucleated Red 0.4 H Blood Cells % Immature 0.120 H Granulocytes # Neutrophils # Lymphocytes # Monocytes # Eosinophils # Basophils # Nucleated Red Blood Cells # Sodium Level 149 H Potassium Level 5.4 H Chloride Level 117 H Carbon Dioxide 29 Level Anion Gap 3 L Blood Urea 75 H Nitrogen Creatinine 1.69 H Est Glomerular Filtrat Rate mL/min Glucose Level 143 # Calcium Level 7.7 L Lab Scanned BLOOD TRANSFUSIO Report N Medications Medication Current Medications Lactulose (Enulose) 20 gm DAILY PRN PO CONSTIPATION; Start 01/17/19 at 18:17 Acetaminophen (Tylenol Tab) 650 mg Q4H PRN PO PAIN Last administered on 01/23/19at 22:48; Admin Dose 650 MG; Start 01/17/19 at 18:17 [facility] This patient ramirez... PRN PRN XX WOUND CARE; Start 01/17/19 at 18:17 Albuterol/ Ipratropium (Duoneb) 3 ml Q2H RESP THERAPY PRN HHN SHORTNESS OF BREATH Last administered on 02/07/19at 05:45; Admin Dose 3 ML; Start 01/17/19 at 18:17 Bisacodyl (Dulcolax) 10 mg BID PRN PO CONSTIPATION; Start 01/17/19 at 18:17; Status Hold Folic Acid (Folic Acid) 1 mg DAILY PO Last administered on 02/09/19at 08:16; Admin Dose 1 MG; Start 01/17/19 at 18:17 Latanoprost (Xalatan) 1 drop HS BOTH EYES Last administered on 02/09/19at 21:15; Admin Dose 1 DROP; Start 01/17/19 at 18:17 Nitroglycerin (Nitroglycerin (Sl Tab) 0.4 Mg) 0.4 tab Q5M PRN SL CHEST PAIN; Start 01/17/19 at 18:17 Nystatin (Nystatin Powder) 1 applic BID TOP Last administered on 02/09/19at 21:11; Admin Dose 1 APPLIC; Start 01/17/19 at 18:17 IV Flush (NS 3 ml) 3 ml PER PROTOCOL IV ; Start 01/17/19 at 18:17 Miscellaneous Information 1 ea NOTE XX ; Start 01/17/19 at 18:17 Glucose (Glutose) 15 gm Q15M PRN PO DECREASED GLUCOSE; Start 01/17/19 at 18:17 Glucose (Glutose) 22.5 gm Q15M PRN PO DECREASED GLUCOSE; Start 01/17/19 at 18:17 Dextrose (D50w Syringe) 25 ml Q15M PRN IV DECREASED GLUCOSE Last administered on 02/05/19at 09:50; Admin Dose 25 ML; Start 01/17/19 at 18:17 Dextrose (D50w Syringe) 50 ml Q15M PRN IV DECREASED GLUCOSE; Start 01/17/19 at 18:17 Glucagon (Glucagen) 1 mg Q15M PRN IM DECREASED GLUCOSE; Start 01/17/19 at 18:17 Glucose (Glutose) 15 gm Q15M PRN BUCCAL DECREASED GLUCOSE; Start 01/17/19 at 18:17 Ascorbic Acid (Vitamin C) 250 mg DAILY PO Last administered on 02/09/19 08:16; Admin Dose 250 MG; Start 01/17/19 at 18:17 Bisacodyl (Dulcolax Supp) 10 mg DAILY PRN [place] CONSTIPATION; Start 01/17/19 at 18:17 Zinc Acetate/ Diphenhydramine (Benadryl 2% Cr) 1 applic Q6H PRN TOP ITCHING Last administered on 01/26/19 07:54; Admin Dose 1 APPLIC; Start 01/19/19 at 16:37 IV Flush (NS 10 ml) 10 ml PRN PRN IV IV PROTOCOL; Start 01/20/19 at 14:30 Cyanocobalamin (Vitamin B12 Inj) 1,000 mcg Q7D IM Last administered on 02/03/19 08:14; Admin Dose 1,000 MCG; Start 02/03/19 at 09:00 Metoprolol Tartrate (Lopressor) 5 mg Q4H PRN IV HR>110 Hold SBP<100; Start 01/26/19 at 14:30 Vancomycin HCl (Vanco Iv Per Pharmacy) VANCOMYCIN PER PHARMACY PER PROTOCOL XX ; Start 01/27/19 at 12:00 Enoxaparin Sodium (Lovenox) 60 mg DAILY SC Last administered on 02/03/19 08: 06; Admin Dose 60 MG; Start 01/28/19 at 09:00; Status Hold Lorazepam (Ativan) 1 mg Q2 PRN IV SEIZURES Last administered on 02/09/19 04:51; Admin Dose 1 MG; Start 01/27/19 at 14:00 Atorvastatin Calcium (Lipitor) 40 mg QHS NGT Last administered on 02/09/19 21:01; Admin Dose 40 MG; Start 01/28/19 at 21:00 Docusate Sodium (Colace Liquid Cup) 100 mg BID NGT ; Start 01/27/19 at 22:00; Status Hold Terazosin HCl (Hytrin) 10 mg HS NGT Last administered on 02/09/19 21:01; Admin Dose 10 MG; Start 01/28/19 at 21:00 Levetiracetam 100 ml @ 400 mls/hr Q12 IVPB Last administered on 02/09/19 20:57; Admin Dose 400 MLS/HR; Start 01/28/19 at 09:00 Levothyroxine Sodium (Synthroid) 125 mcg BEFORE BREAKFAST NGT Last administered on 02/10/19 06:01; Admin Dose 125 MCG; Start 01/28/19 at 07:00 Ferrous Sulfate (Feosol Liquid Cup) 300 mg WITH MEALS GTB Last administered on 02/09/19 18:12; Admin Dose 300 MG; Start 01/28/19 at 11:30 Multivitamins (Multivitamin) 30 ml DAILY GTB Last administered on 02/09/19 08:13; Admin Dose 30 ML; Start 01/28/19 at 11:00 Diagnostic Test (Pha) (Accu-Chek) 1 ea Q4 XX Last administered on 02/09/19 17:00; Admin Dose 1 EA; Start 01/28/19 at 13:00 Nystatin/ Triamcinolone Acetonide (Mycolog Oint) 1 applic BID TOP Last administered on 02/09/19 21:13; Admin Dose 1 APPLIC; Start 01/28/19 at 22:30 Insulin Aspart (Novolog Insulin Pen) NOVOLOG *MILD* ALGORI... Q4 SC Last ad ministered on 02/09/19 01:46; Admin Dose 1 UNIT; Start 01/29/19 at 05:00 Albuterol/ Ipratropium (Duoneb) 3 ml Q6HWA RESP THERAPY HHN Last administered on 02/10/19 07:48; Admin Dose 3 ML; Start 01/29/19 at 14:00 Epoetin Dae-epbx (RETACRIT(non-esrd)) 40,000 unit Mo@1700 SC Last administered on 02/03/19 18:12; Admin Dose 40,000 UNIT; Start 02/03/19 at 17:00 Insulin Glargine (Lantus) 10 units DAILY@2000 SC Last administered on 02/09/19 22:16; Admin Dose 10 UNITS; Start 01/31/19 at 20:00 Aztreonam 1 gm/ Dextrose 50 ml @ 100 mls/hr Q12 IVPB Last administered on 02/09/19 21:40; Admin Dose 100 MLS/HR; Start 02/03/19 at 21:00 Metoprolol Tartrate (Lopressor) 12.5 mg BID PO Last administered on 02/09/19 20:59; Admin Dose 12.5 MG; Start 02/05/19 at 21:00 Eye Lubricant (Refresh Plus) 1 drop QID BOTH EYES Last administered on 02/09/19 20:58; Admin Dose 1 DROP; Start 02/06/19 at 09:00 Eye Lubricant (Akwa Oint) 1 applic HS LEFT EYE Last administered on 02/09/19 21:16; Admin Dose 1 APPLIC; Start 02/06/19 at 21:00 Potassium Chloride (Potassium Chloride Pwd/Soln) 20 meq BID NGT Last ad ministered on 02/09/19 21:02; Admin Dose 20 MEQ; Start 02/06/19 at 21:00 Multi-Ingredient Ointment (Aquaphor Oint 52.5 Gm) 1 applic BID TOP Last administered on 02/09/19 21:00; Admin Dose 1 APPLIC; Start 02/06/19 at 22:40 Lansoprazole (Prevacid) 30 mg BID@0600,1800 NGT Last administered on 02/10/19 06:01; Admin Dose 30 MG; Start 02/07/19 at 18:00 Tobramycin Sulfate/Sodium Chloride (Nilesh Inhal) 300 mg BID RESP THERAPY NEB Last administered on 02/10/19 08:28; Admin Dose 300 MG; Start 02/08/19 at 09:00 Furosemide (Lasix) 20 mg BID DIURETICS IV Last administered on 02/10/19 06:04; Admin Dose 20 MG; Start 02/08/19 at 18:00 Morphine Sulfate (morphine) 0.5 mg Q4H PRN IV SEVERE PAIN LEVEL 7-10; Start 02/08/19 at 19:00 Vancomycin HCl 750 mg/Dextrose 250 ml @ 125 mls/hr Q72H IVPB Last administered on 02/09/19 22:56; Admin Dose 125 MLS/HR; Start 02/09/19 at 23:00 Dextrose 1,000 ml @ 40 mls/hr Q24H IV Last administered on 02/09/19 14:17; Admin Dose 40 MLS/HR; Start 02/09/19 at 14:00 GISELLA VENTURA February 10, 2019 09:04
[2019-02-10] MEDS ORDERED: METHYLPREDNISOLONE 125 MG INJ IV ONE (09:30)
[2019-02-10] MEDS: POTASSIUM CHLORIDE 20 MEQ POWDER FOR ORAL SOLN NGT SCH (09:49)
[2019-02-10] MEDS: FERROUS SULFATE 60 MG/ML 5ML CUP GTB SCH ×3 (09:49→18:04)
[2019-02-10] MEDS: AZTREONAM 1 GM in DEXTROSE 5% 50 ML IVPB SCH ×2 (09:49→21:00)
[2019-02-10] MEDS: MULTIVITAMINS 30 ML CUP GTB SCH (09:49)
[2019-02-10] MEDS: ASCORBIC ACID 250 MG TAB PO SCH (09:49)
[2019-02-10] MEDS: FOLIC ACID 1 MG TAB PO SCH (09:50)
[2019-02-10] MEDS: CYANOCOBALAMIN 1000 MCG INJ IM SCH (09:50)
[2019-02-10] MEDS: METOPROLOL 25 MG TAB PO SCH ×2 (09:50→21:00)
--- NOTE | 2019-02-10 10:17 | CONS ---
Assessment/Plan Assessment/Plan Hospital Course (Demo Recall) 88 yo male with multiple medical problems including DM, CRF, RA, PVD and chronic afib on Eliquis who presented to [facility] 01/05/19 with severe normocytic anemia and Hg ~7. 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 # Anemia-normocytic -Hg > 7. currently stable -Multifactorial at this time due to iron deficiency, vitamin b12 deficiency and also likely anemia of chronic kidney disease and inflammation. Elevated Methylmalonic acid level noted -s/p IV iron -continue vitamin b12 weekly as vitamin b12 was low normal and methylmalonic acid was elevated. Continue folate as well. -No evidence of hemolysis at this time. -Transfuse to keep Hgb > 7. 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 -This may be a pseudocyst or a precancerous pancreatic lesion. -It has been growing in size but patient is asymptomatic. EUS with biopsy is recommended and can either be done inpatient or outpatient setting. -The patient at this time is unlikely a candidate for a whipple surgery however. Thank you to Dr. Alatorre for allowing [facility] to participate in the care of this patient. A total of 40 minutes was spent in consultation with this patient and all his questions were answered. Consultation Date/Type/Reason Admit Date/Time Jan 17, 2019 at 15:58 Initial Consult Date 01/18/19 Type of Consult hematology Reason for Consultation anemia Requesting Provider: IVAN AKHTAR MD Date/Time of Note DATE: 02/10/19 TIME: 10:13 24 HR Interval Summary Free Text/Dictation tachypneic with respiratory distress and so was transferred to ICU. no evidence of GIB Exam/Review of Systems Exam Vitals Vital Signs Date Temp Pulse Resp B/P (MAP) Pulse Ox O2 O2 Flow FiO2 Time Delivery Rate 02/10/19 80 98 Nasal 2.0 08:29 Cannula 02/10/19 21 07:48 02/10/19 98.0 108/53 07:17 (71) Intake and Output 02/09/19 02/09/1919 1515:00 23:00 07:00 IntakeIntake Total 1760 ml 1230 ml OutputOutput Total 500 ml 1150 ml BalanceBalance 1260 ml 80 ml Constitutional: alert, distress Psych: anxiety Head: normocephalic Eyes: nl conjunctiva ENMT: nl external ears & nose Neck: supple Respiratory: clear to auscultation Cardiovascular: regular rate and rhythm Gastrointestinal: soft Musculoskeletal: nl extremities to inspection Extremities: normal pulses Results Result Diagram: 02/10/19 0537 02/10/19 0537 Results 24hrs Laboratory Tests Test 02/09/19 13:04 02/09/19 17:57 02/09/19 21:38 02/10/19 01:03 Bedside Glucose 106 125 137 158 Test 02/10/19 05:07 02/10/19 05:37 02/10/19 07:25 02/10/19 08:29 Bedside Glucose 159 White Blood 16.1 #H Count Red Blood Count 2.70 L Hemoglobin 7.9 L Hematocrit 25.8 L Mean Corpuscular 95.6 Volume Mean Corpuscular 29.3 Hemoglobin Mean Corpuscular 30.6 L Hemoglobin June nt Red Cell 21.1 H Distribution Width Platelet Count 117 L Mean Platelet 13.8 H Volume Immature 0.700 H Granulocytes % Neutrophils % Lymphocytes % Monocytes % Eosinophils % Basophils % Nucleated Red 0.4 H Blood Cells % Immature 0.120 H Granulocytes # Neutrophils # Lymphocytes # Monocytes # Eosinophils # Basophils # Nucleated Red Blood Cells # Sodium Level 149 H Potassium Level 5.4 H Chloride Level 117 H Carbon Dioxide 29 Level Anion Gap 3 L Blood Urea 75 H Nitrogen Creatinine 1.69 H Est Glomerular Filtrat Rate mL/min Glucose Level 143 # Calcium Level 7.7 L Lab Scanned BLOOD TRANSFUSI Report ON Blood Gas Blood arterial Specimen Source Arterial Blood 02/10/2019 8:50: Date Drawn 37 AM Arterial Blood 7.306 L pH (Temp corrected) Arterial Blood 59.7 H pCO2 (Temp correct) Arterial Blood 97.8 H pO2 (Temp corrected) Arterial Blood 29.1 H HCO3 Arterial Blood 2.1 Base Excess Arterial Blood 96.6 Oxygen Saturatio n Manuel Test ACCEPTAB Arterial Blood Left Radial Gas Puncture Site Arterial 0.8 Blood Carboxyhem oglobin Arterial Blood 0.5 Methemoglobin Blood Gas A-a O2 213.4 H Differential Oxyhemoglobin 95.3 Percent Blood Gas 37.0 Temperature Blood Gas MASK - SIMPLE Modality FiO2 53.0 Blood Gas TM Notified Whom Blood Gas 02/10/2019 9:00: Notified Time 25 AM Test 02/10/19 08:31 02/10/19 10:03 Bedside Glucose 152 134 Medications Medication Current Medications Lactulose (Enulose) 20 gm DAILY PRN PO CONSTIPATION; Start 01/17/19 at 18:17 Acetaminophen (Tylenol Tab) 650 mg Q4H PRN PO PAIN Last administered on 01/23/19 22:48; Admin Dose 650 MG; Start 01/17/19 at 18:17 Miscellaneous Information (Pending [facility] Order For Wound Care) This patient ramirez... PRN PRN XX WOUND CARE; Start 01/17/19 at 18:17 Albuterol/ Ipratropium (Duoneb) 3 ml Q2H RESP THERAPY PRN HHN SHORTNESS OF BREATH Last administered on 02/07/19at 05:45; Admin Dose 3 ML; Start 01/17/19 at 18:17 Bisacodyl (Dulcolax) 10 mg BID PRN PO CONSTIPATION; Start 01/17/19 at 18:17; Status Hold Folic Acid (Folic Acid) 1 mg DAILY PO Last administered on 02/10/19at 09:50; Admin Dose 1 MG; Start 01/17/19 at 18:17 Latanoprost (Xalatan) 1 drop HS BOTH EYES Last administered on 02/09/19at 21:15; Admin Dose 1 DROP; Start 01/17/19 at 18:17 Nitroglycerin (Nitroglycerin (Sl Tab) 0.4 Mg) 0.4 tab Q5M PRN SL CHEST PAIN; Start 01/17/19 at 18:17 Nystatin (Nystatin Powder) 1 applic BID TOP Last administered on 02/09/19at 21:11; Admin Dose 1 APPLIC; Start 01/17/19 at 18:17 IV Flush (NS 3 ml) 3 ml PER PROTOCOL IV ; Start 01/17/19 at 18:17 Miscellaneous Information 1 ea NOTE XX ; Start 01/17/19 at 18:17 Glucose (Glutose) 15 gm Q15M PRN PO DECREASED GLUCOSE; Start 01/17/19 at 18:17 Glucose (Glutose) 22.5 gm Q15M PRN PO DECREASED GLUCOSE; Start 01/17/19 at 18:17 Dextrose (D50w Syringe) 25 ml Q15M PRN IV DECREASED GLUCOSE Last administered on 02/05/19at 09:50; Admin Dose 25 ML; Start 01/17/19 at 18:17 Dextrose (D50w Syringe) 50 ml Q15M PRN IV DECREASED GLUCOSE; Start 01/17/19 at 18:17 Glucagon (Glucagen) 1 mg Q15M PRN IM DECREASED GLUCOSE; Start 01/17/19 at 18:17 Glucose (Glutose) 15 gm Q15M PRN BUCCAL DECREASED GLUCOSE; Start 01/17/19 at 18:17 Ascorbic Acid (Vitamin C) 250 mg DAILY PO Last administered on 02/10/19at 09:49; Admin Dose 250 MG; Start 01/17/19 at 18:17 Bisacodyl (Dulcolax Supp) 10 mg DAILY PRN [place] CONSTIPATION; Start 01/17/19 at 18:17 Zinc Acetate/ Diphenhydramine (Benadryl 2% Cr) 1 applic Q6H PRN TOP ITCHING Last administered on 01/26/19at 07:54; Admin Dose 1 APPLIC; Start 01/19/19 at 16:37 IV Flush (NS 10 ml) 10 ml PRN PRN IV IV PROTOCOL; Start 01/20/19 at 14:30 Cyanocobalamin (Vitamin B12 Inj) 1,000 mcg Q7D IM Last administered on 02/10/19at 09:50; Admin Dose 1,000 MCG; Start 02/03/19 at 09:00 Metoprolol Tartrate (Lopressor) 5 mg Q4H PRN IV HR>110 Hold SBP<100; Start 01/26/19 at 14:30 Vancomycin HCl (Vanco Iv Per Pharmacy) VANCOMYCIN PER PHARMACY PER PROTOCOL XX ; Start 01/27/19 at 12:00 Enoxaparin Sodium (Lovenox) 60 mg DAILY SC Last administered on 02/03/19at 08:06; Admin Dose 60 MG; Start 01/28/19 at 09:00; Status Hold Lorazepam (Ativan) 1 mg Q2 PRN IV SEIZURES Last administered on 02/09/19at 04:51; Admin Dose 1 MG; Start 01/27/19 at 14:00 Atorvastatin Calcium (Lipitor) 40 mg QHS NGT Last administered on 02/09/19 21:01; Admin Dose 40 MG; Start 01/28/19 at 21:00 Docusate Sodium (Colace Liquid Cup) 100 mg BID NGT ; Start 01/27/19 at 22:00; Status Hold Terazosin HCl (Hytrin) 10 mg HS NGT Last administered on 02/09/19 21:01; Admin Dose 10 MG; Start 01/28/19 at 21:00 Levetiracetam 100 ml @ 400 mls/hr Q12 IVPB Last administered on 02/10/19 09: 03; Admin Dose 400 MLS/HR; Start 01/28/19 at 09:00 Levothyroxine Sodium (Synthroid) 125 mcg BEFORE BREAKFAST NGT Last administered on 02/10/19 06:01; Admin Dose 125 MCG; Start 01/28/19 at 07:00 Ferrous Sulfate (Feosol Liquid Cup) 300 mg WITH MEALS GTB Last administered on 02/10/19 09:49; Admin Dose 300 MG; Start 01/28/19 at 11:30 Multivitamins (Multivitamin) 30 ml DAILY GTB Last administered on 02/10/19 09:49; Admin Dose 30 ML; Start 01/28/19 at 11:00 Diagnostic Test (Pha) (Accu-Chek) 1 ea Q4 XX Last administered on 02/09/19 17:00; Admin Dose 1 EA; Start 01/28/19 at 13:00 Nystatin/ Triamcinolone Acetonide (Mycolog Oint) 1 applic BID TOP Last administered on 02/09/19 21:13; Admin Dose 1 APPLIC; Start 01/28/19 at 22:30 Insulin Aspart (Novolog Insulin Pen) NOVOLOG *MILD* ALGORI... Q4 SC Last administered on 02/09/19 01:46; Admin Dose 1 UNIT; Start 01/29/19 at 05:00 Albuterol/ Ipratropium (Duoneb) 3 ml Q6HWA RESP THERAPY HHN Last administered on 02/10/19 07:48; Admin Dose 3 ML; Start 01/29/19 at 14:00 Epoetin Dae-epbx (RETACRIT(non-esrd)) 40,000 unit Mo@1700 SC Last administered on 02/03/19 18:12; Admin Dose 40,000 UNIT; Start 02/03/19 at 17:00 Insulin Glargine (Lantus) 10 units DAILY@2000 SC Last administered on 02/09/19 22:16; Admin Dose 10 UNITS; Start 01/31/19 at 20:00 Aztreonam 1 gm/ Dextrose 50 ml @ 100 mls/hr Q12 IVPB Last administered on 02/10/19 09:49; Admin Dose 100 MLS/HR; Start 02/03/19 at 21:00 Metoprolol Tartrate (Lopressor) 12.5 mg BID PO Last administered on 02/10/19 09:50; Admin Dose 12.5 MG; Start 02/05/19 at 21:00 Eye Lubricant (Refresh Plus) 1 drop QID BOTH EYES Last administered on 02/09/19 20:58; Admin Dose 1 DROP; Start 02/06/19 at 09:00 Eye Lubricant (Akwa Oint) 1 applic HS LEFT EYE Last administered on 02/09/19 21:16; Admin Dose 1 APPLIC; Start 02/06/19 at 21:00 Multi-Ingredient Ointment (Aquaphor Oint 52.5 Gm) 1 applic BID TOP Last administered on 02/09/19 21:00; Admin Dose 1 APPLIC; Start 02/06/19 at 22:40 Lansoprazole (Prevacid) 30 mg BID@0600,1800 NGT Last administered on 02/10/19 06:01; Admin Dose 30 MG; Start 02/07/19 at 18:00 Tobramycin Sulfate/Sodium Chloride (Nilesh Inhal) 300 mg BID RESP THERAPY NEB Last administered on 02/10/19 08:28; Admin Dose 300 MG; Start 02/08/19 at 09:00 Furosemide (Lasix) 20 mg BID DIURETICS IV Last administered on 02/10/19 06:04; Admin Dose 20 MG; Start 02/08/19 at 18:00 Morphine Sulfate (morphine) 0.5 mg Q4H PRN IV SEVERE PAIN LEVEL 7-10; Start 02/08/19 at 19:00 Vancomycin HCl 750 mg/Dextrose 250 ml @ 125 mls/hr Q72H IVPB Last administered on 02/09/19 22:56; Admin Dose 125 MLS/HR; Start 02/09/19 at 23:00 Dextrose 1,000 ml @ 40 mls/hr Q24H IV Last administered on 02/09/19at 14:17; Admin Dose 40 MLS/HR; Start 02/09/19 at 14:00 OREN MARSH M.D. February 10, 2019 10:17
--- NOTE | 2019-02-10 10:22 | CONS ---
Assessment/Plan Assessment/Plan Hospital Course (Demo Recall) IMPRESSION: 1. Atrial fibrillation, currently rate controlled.-off systemic anticoagulation due to anemia. ON asa only due to anemia 2. Possible congestive heart failure by chest x-ray, which will be diastolic, acute on chronic by most recent echo with an EF of 60%. 3. Tricuspid regurgitation, moderate by most recent echo. 4. Acute on chronic renal failure-mild worsening 5. Possible pneumonia. 6. History of coronary artery disease, status post coronary artery bypass graft surgery. 7. Dyslipidemia. 8. Rheumatoid arthritis. 9. Groin cellulitis. 10. Anemia-worsening again today requiring transfusions PRBC's.Now post-op s/p endoscopy 11. Diabetes mellitus. 12. Sepsis/leukocytosis 14. abdominal mass 15. Rash-all over body with skin chaffing at this time, probable drug reaction 16. Encephalopathy-ongoing. MRI negative for acute CVA Recc: -Now back in ICU s/p [employer] this am -serial ecg's -Lasix currently held per renal -Continue statin -Currently off abx's/antifungals, f/u cx data -Ongoing GI eval of abd mass -ongoing derm eval of rash and continue topical treatment -Lovenox held in the setting of GIB/worsening anemia and development of coagulopathy. Will recheck coag status -Continue low dose BB with well controlled HR's -Now on BIPAP Consultation Date/Type/Reason Admit Date/Time Jan 17, 2019 at 15:58 Initial Consult Date 01/18/19 Type of Consult Cardiology Reason for Consultation AF Requesting Provider: IVAN AKHTAR MD Date/Time of Note DATE: 02/10/19 TIME: 10:12 Exam/Review of Systems Vital Signs Vitals Vital Signs Date Temp Pulse Resp B/P (MAP) Pulse Ox O2 O2 Flow FiO2 Time Delivery Rate 02/10/19 80 100 50 09:46 02/10/19 Nasal 2.0 08:29 Cannula 02/10/19 21 07:48 02/10/19 98.0 108/53 07:17 (71) Intake and Output 02/09/19 02/09/19 02/10/19 1515:00 23:00 07:00 IntakeIntake Total 1760 ml 1230 ml OutputOutput Total 500 ml 1150 ml BalanceBalance 1260 ml 80 ml Exam Exam Review of Systems: CONSTITUTIONAL: No fevers, chills. PULMONARY: No sob CARDIOVASCULAR: No chest pain/palpitations GASTROINTESTINAL: No nausea/vomiting. GENITOURINARY: No hematuria/dysuria. MUSCULOSKELETAL: No myagias/arthalgias. PSYCHIATRIC: The patient denies depression. NEUROLOGIC: encephalopathic Constitutional: alert Psych: no complaints Head: normocephalic ENMT: mucosa pink and moist Neck: supple, jvd (9 cm water) Respiratory: diminished breath sounds Cardiovascular: regular rate and rhythm Gastrointestinal: soft, non-tender Musculoskeletal: muscle tone (normal) Extremities: pitting pedal edema (bilateral ) Neurological: other (No focal deficits) Labs Result Diagram: 02/10/19 0537 02/10/19 0537 Results 24hrs Laboratory Tests Test 02/09/19 13:04 02/09/19 17:57 02/09/19 21:38 02/10/19 01:03 Bedside Glucose 106 125 137 158 Test 02/10/19 05:07 02/10/19 05:37 02/10/19 07:25 02/10/19 08:29 Bedside Glucose 159 White Blood 16.1 #H Count Red Blood Count 2.70 L Hemoglobin 7.9 L Hematocrit 25.8 L Mean Corpuscular 95.6 Volume Mean Corpuscular 29.3 Hemoglobin Mean Corpuscular 30.6 L Hemoglobin June nt Red Cell 21.1 H Distribution Width Platelet Count 117 L Mean Platelet 13.8 H Volume Immature 0.700 H Granulocytes % Neutrophils % Lymphocytes % Monocytes % Eosinophils % Basophils % Nucleated Red 0.4 H Blood Cells % Immature 0.120 H Granulocytes # Neutrophils # Lymphocytes # Monocytes # Eosinophils # Basophils # Nucleated Red Blood Cells # Sodium Level 149 H Potassium Level 5.4 H Chloride Level 117 H Carbon Dioxide 29 Level Anion Gap 3 L Blood Urea 75 H Nitrogen Creatinine 1.69 H Est Glomerular Filtrat Rate mL/min Glucose Level 143 # Calcium Level 7.7 L Lab Scanned BLOOD TRANSFUSI Report ON Blood Gas Blood arterial Specimen Source Arterial Blood 02/10/2019 8:50: Date Drawn 37 AM Arterial Blood 7.306 L pH (Temp corrected) Arterial Blood 59.7 H pCO2 (Temp correct) Arterial Blood 97.8 H pO2 (Temp corrected) Arterial Blood 29.1 H HCO3 Arterial Blood 2.1 Base Excess Arterial Blood 96.6 Oxygen Saturatio n Manuel Test ACCEPTAB Arterial Blood Left Radial Gas Puncture Site Arterial 0.8 Blood Carboxyhem oglobin Arterial Blood 0.5 Methemoglobin Blood Gas A-a O2 213.4 H Differential Oxyhemoglobin 95.3 Percent Blood Gas 37.0 Temperature Blood Gas MASK - SIMPLE Modality FiO2 53.0 Blood Gas TM Notified Whom Blood Gas 02/10/2019 9:00: Notified Time 25 AM Test 02/10/19 08:31 02/10/19 10:03 Bedside Glucose 152 134 Medications Medications Current Medications Lactulose (Enulose) 20 gm DAILY PRN PO CONSTIPATION; Start 01/17/19 at 18:17 Acetaminophen (Tylenol Tab) 650 mg Q4H PRN PO PAIN Last administered on 01/23/19 22:48; Admin Dose 650 MG; Start 01/17/19 at 18:17 Miscellaneous Information (Pending [facility] Order For Wound Care) This patient ramirez... PRN PRN XX WOUND CARE; Start 01/17/19 at 18:17 Albuterol/ Ipratropium (Duoneb) 3 ml Q2H RESP THERAPY PRN HHN SHORTNESS OF BRAN TH Last administered on 02/07/19at 05:45; Admin Dose 3 ML; Start 01/17/19 at 18:17 Bisacodyl (Dulcolax) 10 mg BID PRN PO CONSTIPATION; Start 01/17/19 at 18:17; Status Hold Folic Acid (Folic Acid) 1 mg DAILY PO Last administered on 02/10/19at 09:50; Admin Dose 1 MG; Start 01/17/19 at 18:17 Latanoprost (Xalatan) 1 drop HS BOTH EYES Last administered on 02/09/19at 21:15; Admin Dose 1 DROP; Start 01/17/19 at 18:17 Nitroglycerin (Nitroglycerin (Sl Tab) 0.4 Mg) 0.4 tab Q5M PRN SL CHEST PAIN; Start 01/17/19 at 18:17 Nystatin (Nystatin Powder) 1 applic BID TOP Last administered on 02/09/19at 21:11; Admin Dose 1 APPLIC; Start 01/17/19 at 18:17 IV Flush (NS 3 ml) 3 ml PER PROTOCOL IV ; Start 01/17/19 at 18:17 Miscellaneous Information 1 ea NOTE XX ; Start 01/17/19 at 18:17 Glucose (Glutose) 15 gm Q15M PRN PO DECREASED GLUCOSE; Start 01/17/19 at 18:17 Glucose (Glutose) 22.5 gm Q15M PRN PO DECREASED GLUCOSE; Start 01/17/19 at 18:17 Dextrose (D50w Syringe) 25 ml Q15M PRN IV DECREASED GLUCOSE Last administered on 02/05/19at 09:50; Admin Dose 25 ML; Start 01/17/19 at 18:17 Dextrose (D50w Syringe) 50 ml Q15M PRN IV DECREASED GLUCOSE; Start 01/17/19 at 18:17 Glucagon (Glucagen) 1 mg Q15M PRN IM DECREASED GLUCOSE; Start 01/17/19 at 18:17 Glucose (Glutose) 15 gm Q15M PRN BUCCAL DECREASED GLUCOSE; Start 01/17/19 at 18:17 Ascorbic Acid (Vitamin C) 250 mg DAILY PO Last administered on 02/10/19at 09:49; Admin Dose 250 MG; Start 01/17/19 at 18:17 Bisacodyl (Dulcolax Supp) 10 mg DAILY PRN [place] CONSTIPATION; Start 01/17/19 at 18:17 Zinc Acetate/ Diphenhydramine (Benadryl 2% Cr) 1 applic Q6H PRN TOP ITCHING Last administered on 01/26/19at 07:54; Admin Dose 1 APPLIC; Start 01/19/19 at 16:37 IV Flush (NS 10 ml) 10 ml PRN PRN IV IV PROTOCOL; Start 01/20/19 at 14:30 Cyanocobalamin (Vitamin B12 Inj) 1,000 mcg Q7D IM Last administered on 02/10/19at 09:50; Admin Dose 1,000 MCG; Start 02/03/19 at 09:00 Metoprolol Tartrate (Lopressor) 5 mg Q4H PRN IV HR>110 Hold SBP<100; Start 01/26/19 at 14:30 Vancomycin HCl (Vanco Iv Per Pharmacy) VANCOMYCIN PER PHARMACY PER PROTOCOL XX ; Start 01/27/19 at 12:00 Enoxaparin Sodium (Lovenox) 60 mg DAILY SC Last administered on 02/03/19at 08:06; Admin Dose 60 MG; Start 01/28/19 at 09:00; Status Hold Lorazepam (Ativan) 1 mg Q2 PRN IV SEIZURES Last administered on 02/09/19 04:51; Admin Dose 1 MG; Start 01/27/19 at 14:00 Atorvastatin Calcium (Lipitor) 40 mg QHS NGT Last administered on 02/09/19 21:01; Admin Dose 40 MG; Start 01/28/19 at 21:00 Docusate Sodium (Colace Liquid Cup) 100 mg BID NGT ; Start 01/27/19 at 22:00; Status Hold Terazosin HCl (Hytrin) 10 mg HS NGT Last administered on 02/09/19 21:01; Admin Dose 10 MG; Start 01/28/19 at 21:00 Levetiracetam 100 ml @ 400 mls/hr Q12 IVPB Last administered on 02/10/19 09:03; Admin Dose 400 MLS/HR; Start 01/28/19 at 09:00 Levothyroxine Sodium (Synthroid) 125 mcg BEFORE BREAKFAST NGT Last administ ered on 02/10/19 06:01; Admin Dose 125 MCG; Start 01/28/19 at 07:00 Ferrous Sulfate (Feosol Liquid Cup) 300 mg WITH MEALS GTB Last administered on 02/10/19 09:49; Admin Dose 300 MG; Start 01/28/19 at 11:30 Multivitamins (Multivitamin) 30 ml DAILY GTB Last administered on 02/10/19 09:49; Admin Dose 30 ML; Start 01/28/19 at 11:00 Diagnostic Test (Pha) (Accu-Chek) 1 ea Q4 XX Last administered on 02/09/19 17:00; Admin Dose 1 EA; Start 01/28/19 at 13:00 Nystatin/ Triamcinolone Acetonide (Mycolog Oint) 1 applic BID TOP Last administered on 02/09/19 21:13; Admin Dose 1 APPLIC; Start 01/28/19 at 22:30 Insulin Aspart (Novolog Insulin Pen) NOVOLOG *MILD* ALGORI... Q4 SC Last administered on 02/09/19 01:46; Admin Dose 1 UNIT; Start 01/29/19 at 05:00 Albuterol/ Ipratropium (Duoneb) 3 ml Q6HWA RESP THERAPY HHN Last administered on 02/10/19 07:48; Admin Dose 3 ML; Start 01/29/19 at 14:00 Epoetin Dae-epbx (RETACRIT(non-esrd)) 40,000 unit Mo@1700 SC Last administered on 02/03/19 18:12; Admin Dose 40,000 UNIT; Start 02/03/19 at 17:00 Insulin Glargine (Lantus) 10 units DAILY@2000 SC Last administered on 02/09/19 22:16; Admin Dose 10 UNITS; Start 01/31/19 at 20:00 Aztreonam 1 gm/ Dextrose 50 ml @ 100 mls/hr Q12 IVPB Last administered on 02/10/19 09:49; Admin Dose 100 MLS/HR; Start 02/03/19 at 21:00 Metoprolol Tartrate (Lopressor) 12.5 mg BID PO Last administered on 02/10/19 09:50; Admin Dose 12.5 MG; Start 02/05/19 at 21:00 Eye Lubricant (Refresh Plus) 1 drop QID BOTH EYES Last administered on 02/09/19 20:58; Admin Dose 1 DROP; Start 02/06/19 at 09:00 Eye Lubricant (Akwa Oint) 1 applic HS LEFT EYE Last administered on 02/09/19 21:16; Admin Dose 1 APPLIC; Start 02/06/19 at 21:00 Multi-Ingredient Ointment (Aquaphor Oint 52.5 Gm) 1 applic BID TOP Last administered on 02/09/19 21:00; Admin Dose 1 APPLIC; Start 02/06/19 at 22:40 Lansoprazole (Prevacid) 30 mg BID@0600,1800 NGT Last administered on 02/10/19 06:01; Admin Dose 30 MG; Start 02/07/19 at 18:00 Tobramycin Sulfate/Sodium Chloride (Nilesh Inhal) 300 mg BID RESP THERAPY NEB Last administered on 02/10/19 08:28; Admin Dose 300 MG; Start 02/08/19 at 09:00 Furosemide (Lasix) 20 mg BID DIURETICS IV Last administered on 02/10/19 06:04; Admin Dose 20 MG; Start 02/08/19 at 18:00 Morphine Sulfate (morphine) 0.5 mg Q4H PRN IV SEVERE PAIN LEVEL 7-10; Start 02/08/19 at 19:00 Vancomycin HCl 750 mg/Dextrose 250 ml @ 125 mls/hr Q72H IVPB Last administered on 02/09/19at 22:56; Admin Dose 125 MLS/HR; Start 02/09/19 at 23:00 Dextrose 1,000 ml @ 40 mls/hr Q24H IV Last administered on 02/09/19at 14:17; Admin Dose 40 MLS/HR; Start 02/09/19 at 14:00 MARJORIE JAIN February 10, 2019 10:22
--- NOTE | 2019-02-10 10:36 | PN ---
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 Septic shock now on pressors likely secondary to pneumonia on levophed resolved # Hypothermia ? sepsis #. 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 Chronic renal failure likely secondary to sepsis, improved, normal creatinine #. Hypertension.currently hypotensive resolved # Impending respiratory failure # Anasarca # Hyperlipidemia. # Hypothyroidism. # Bilateral groin cellulitis more likely associated with mateus, patches in groin and axilla bilaterally. skin peeling # History of rheumatoid arthritis with joint deformities. # Diabetes type 2. # Hx of CABGx2, carotid stent #. Peripheral vascular disease. #. Chronic a.fib, now on lovenox #. right arm edema # Neoplasm per CT abdomen. 4.3 cm cystic lesion along the pancreas body, enlarged since 10/10/2012 (previously 2.4 cm). 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 # Possible allergic skin reaction ? drug present since admission> improved s/p biopsy/ Amrik Serafin > limit results solar keratosis # hypoThermia #Hypernatremia vasiliy due to dehydration improving # metabolic alkalosis Plan - Rapid response probably due to AMS due to CO2/Ativan, sp steroids and lasix, chest xray reviwed -hold off ativan - nebs, BIPAP - ABG - DC d5w add more FWF - DC KCL due to high potasium - GI consult> hold lovenox due to possible bleeding, iv ppi - on iv lasix 20 - restart feeding at lower rate - cw aztreonam/vanco/tobra -c w keppra - cw lovenox 60 for afib> held today due to anemia ? ASA - GI and DVT prophylaxsis -oncology consul dr Lorenzo aware:he said Ca 19-9 is negative indicating unlikely malignant. This may be a pseudocyst or a precancerous pancreatic lesion. It has been growing in size but patient is asymptomatic. EUS with biopsy is recommended and can either be done inpatient or outpatient setting. The patient at this time is unlikely a candidate for a Whipple surgery however. -skin care - s/p skin biopsy pending results solar elastosis > will kemar derm input Result Diagram: 02/10/19 0537 02/10/19 0537 Results 24hrs Laboratory Tests Test 02/09/19 13:04 02/09/19 17:57 02/09/19 21:38 02/10/19 01:03 Bedside Glucose 106 125 137 158 Test 02/10/19 05:07 02/10/19 05:37 02/10/19 07:25 02/10/19 08:29 Bedside Glucose 159 White Blood 16.1 #H Count Red Blood Count 2.70 L Hemoglobin 7.9 L Hematocrit 25.8 L Mean Corpuscular 95.6 Volume Mean Corpuscular 29.3 Hemoglobin Mean Corpuscular 30.6 L Hemoglobin June nt Red Cell 21.1 H Distribution Width Platelet Count 117 L Mean Platelet 13.8 H Volume Immature 0.700 H Granulocytes % Neutrophils % Lymphocytes % Monocytes % Eosinophils % Basophils % Nucleated Red 0.4 H Blood Cells % Immature 0.120 H Granulocytes # Neutrophils # Lymphocytes # Monocytes # Eosinophils # Basophils # Nucleated Red Blood Cells # Sodium Level 149 H Potassium Level 5.4 H Chloride Level 117 H Carbon Dioxide 29 Level Anion Gap 3 L Blood Urea 75 H Nitrogen Creatinine 1.69 H Est Glomerular Filtrat Rate mL/min Glucose Level 143 # Calcium Level 7.7 L Lab Scanned BLOOD TRANSFUSI Report ON Blood Gas Blood arterial Specimen Source Arterial Blood 02/10/2019 8:50: Date Drawn 37 AM Arterial Blood 7.306 L pH (Temp corrected) Arterial Blood 59.7 H pCO2 (Temp correct) Arterial Blood 97.8 H pO2 (Temp corrected) Arterial Blood 29.1 H HCO3 Arterial Blood 2.1 Base Excess Arterial Blood 96.6 Oxygen Saturatio n Manuel Test ACCEPTAB Arterial Blood Left Radial Gas Puncture Site Arterial 0.8 Blood Carboxyhem oglobin Arterial Blood 0.5 Methemoglobin Blood Gas A-a O2 213.4 H Differential Oxyhemoglobin 95.3 Percent Blood Gas 37.0 Temperature Blood Gas MASK - SIMPLE Modality FiO2 53.0 Blood Gas TM Notified Whom Blood Gas 02/10/2019 9:00: Notified Time 25 AM Test 02/10/19 08:31 02/10/19 10:03 Bedside Glucose 152 134 Subjective 24 Hr Interval Summary Free Text/Dictation Pt was altered this am , was tachypnic.increased resp rate received ativan last night Exam/Review of Systems Exam Vitals Vital Signs Date Temp Pulse Resp B/P (MAP) Pulse Ox O2 O2 Flow FiO2 Time Delivery Rate 02/10/19 90 10:00 02/10/19 100 50 09:46 02/10/19 Nasal 2.0 08:29 Cannula 02/10/19 21 07:48 02/10/19 98.0 108/53 07:17 (71) Intake and Output 02/09/19 02/09/19 02/10/19 1515:00 23:00 07:00 IntakeIntake Total 1760 ml 1230 ml OutputOutput Total 500 ml 1150 ml BalanceBalance 1260 ml 80 ml Exam NG tube Constitutional: alert, frail, opens eyes, does not follow commands Head: normocephalic Neck: supple Cardiovascular: regular rate Dec breath sounds bases Gastrointestinal: soft skin peeling Results Results 24hrs Laboratory Tests Test 02/09/19 13:04 02/09/19 17:57 02/09/19 21:38 02/10/19 01:03 Bedside Glucose 106 125 137 158 Test 02/10/19 05:07 02/10/19 05:37 02/10/19 07:25 02/10/19 08:29 Bedside Glucose 159 White Blood 16.1 #H Count Red Blood Count 2.70 L Hemoglobin 7.9 L Hematocrit 25.8 L Mean Corpuscular 95.6 Volume Mean Corpuscular 29.3 Hemoglobin Mean Corpuscular 30.6 L Hemoglobin June nt Red Cell 21.1 H Distribution Width Platelet Count 117 L Mean Platelet 13.8 H Volume Immature 0.700 H Granulocytes % Neutrophils % Lymphocytes % Monocytes % Eosinophils % Basophils % Nucleated Red 0.4 H Blood Cells % Immature 0.120 H Granulocytes # Neutrophils # Lymphocytes # Monocytes # Eosinophils # Basophils # Nucleated Red Blood Cells # Sodium Level 149 H Potassium Level 5.4 H Chloride Level 117 H Carbon Dioxide 29 Level Anion Gap 3 L Blood Urea 75 H Nitrogen Creatinine 1.69 H Est Glomerular Filtrat Rate mL/min Glucose Level 143 # Calcium Level 7.7 L Lab Scanned BLOOD TRANSFUSI Report ON Blood Gas Blood arterial Specimen Source Arterial Blood 02/10/2019 8:50: Date Drawn 37 AM Arterial Blood 7.306 L pH (Temp corrected) Arterial Blood 59.7 H pCO2 (Temp correct) Arterial Blood 97.8 H pO2 (Temp corrected) Arterial Blood 29.1 H HCO3 Arterial Blood 2.1 Base Excess Arterial Blood 96.6 Oxygen Saturatio n Manuel Test ACCEPTAB Arterial Blood Left Radial Gas Puncture Site Arterial 0.8 Blood Carboxyhem oglobin Arterial Blood 0.5 Methemoglobin Blood Gas A-a O2 213.4 H Differential Oxyhemoglobin 95.3 Percent Blood Gas 37.0 Temperature Blood Gas MASK - SIMPLE Modality FiO2 53.0 Blood Gas TM Notified Whom Blood Gas 02/10/2019 9:00: Notified Time 25 AM Test 02/10/19 08:31 02/10/19 10:03 Bedside Glucose 152 134 Medications Medication Current Medications Lactulose (Enulose) 20 gm DAILY PRN PO CONSTIPATION; Start 01/17/19 at 18:17 Acetaminophen (Tylenol Tab) 650 mg Q4H PRN PO PAIN Last administered on 01/23/19at 22:48; Admin Dose 650 MG; Start 01/17/19 at 18:17 Miscellaneous Information (Pending [facility] Order For Wound Care) This patient ramirez... PRN PRN XX WOUND CARE; Start 01/17/19 at 18:17 Albuterol/ Ipratropium (Duoneb) 3 ml Q2H RESP THERAPY PRN HHN SHORTNESS OF BREATH Last administered on 02/07/19at 05:45; Admin Dose 3 ML; Start 01/17/19 at 18:17 Bisacodyl (Dulcolax) 10 mg BID PRN PO CONSTIPATION; Start 01/17/19 at 18:17; Status Hold Folic Acid (Folic Acid) 1 mg DAILY PO Last administered on 02/10/19at 09:50; Admin Dose 1 MG; Start 01/17/19 at 18:17 Latanoprost (Xalatan) 1 drop HS BOTH EYES Last administered on 02/09/19at 21:15; Admin Dose 1 DROP; Start 01/17/19 at 18:17 Nitroglycerin (Nitroglycerin (Sl Tab) 0.4 Mg) 0.4 tab Q5M PRN SL CHEST PAIN; Start 01/17/19 at 18:17 Nystatin (Nystatin Powder) 1 applic BID TOP Last administered on 02/09/19at 21:11; Admin Dose 1 APPLIC; Start 01/17/19 at 18:17 IV Flush (NS 3 ml) 3 ml PER PROTOCOL IV ; Start 01/17/19 at 18:17 Miscellaneous Information 1 ea NOTE XX ; Start 01/17/19 at 18:17 Glucose (Glutose) 15 gm Q15M PRN PO DECREASED GLUCOSE; Start 01/17/19 at 18:17 Glucose (Glutose) 22.5 gm Q15M PRN PO DECREASED GLUCOSE; Start 01/17/19 at 18:17 Dextrose (D50w Syringe) 25 ml Q15M PRN IV DECREASED GLUCOSE Last administered on 02/05/19at 09:50; Admin Dose 25 ML; Start 01/17/19 at 18:17 Dextrose (D50w Syringe) 50 ml Q15M PRN IV DECREASED GLUCOSE; Start 01/17/19 at 18:17 Glucagon (Glucagen) 1 mg Q15M PRN IM DECREASED GLUCOSE; Start 01/17/19 at 18:17 Glucose (Glutose) 15 gm Q15M PRN BUCCAL DECREASED GLUCOSE; Start 01/17/19 at 18:17 Ascorbic Acid (Vitamin C) 250 mg DAILY PO Last administered on 02/10/19at 09:49; Admin Dose 250 MG; Start 01/17/19 at 18:17 Bisacodyl (Dulcolax Supp) 10 mg DAILY PRN [place] CONSTIPATION; Start 01/17/19 at 18:17 Zinc Acetate/ Diphenhydramine (Benadryl 2% Cr) 1 applic Q6H PRN TOP ITCHING Last administered on 01/26/19at 07:54; Admin Dose 1 APPLIC; Start 01/19/19 at 16:37 IV Flush (NS 10 ml) 10 ml PRN PRN IV IV PROTOCOL; Start 01/20/19 at 14:30 Cyanocobalamin (Vitamin B12 Inj) 1,000 mcg Q7D IM Last administered on 9at 09:50; Admin Dose 1,000 MCG; Start 02/03/19 at 09:00 Metoprolol Tartrate (Lopressor) 5 mg Q4H PRN IV HR>110 Hold SBP<100; Start 01/26/19 at 14:30 Vancomycin HCl (Vanco Iv Per Pharmacy) VANCOMYCIN PER PHARMACY PER PROTOCOL XX ; Start 01/27/19 at 12:00 Enoxaparin Sodium (Lovenox) 60 mg DAILY SC Last administered on 02/03/19 08:06; Admin Dose 60 MG; Start 01/28/19 at 09:00; Status Hold Lorazepam (Ativan) 1 mg Q2 PRN IV SEIZURES Last administered on 02/09/19 04:51; Admin Dose 1 MG; Start 01/27/19 at 14:00 Atorvastatin Calcium (Lipitor) 40 mg QHS NGT Last administered on 02/09/19 21:01; Admin Dose 40 MG; Start 01/28/19 at 21:00 Docusate Sodium (Colace Liquid Cup) 100 mg BID NGT ; Start 01/27/19 at 22:00; Status Hold Terazosin HCl (Hytrin) 10 mg HS NGT Last administered on 02/09/19 21:01; Admin Dose 10 MG; Start 01/28/19 at 21:00 Levetiracetam 100 ml @ 400 mls/hr Q12 IVPB Last administered on 02/10/19 09:03; Admin Dose 400 MLS/HR; Start 01/28/19 at 09:00 Levothyroxine Sodium (Synthroid) 125 mcg BEFORE BREAKFAST NGT Last administered on 02/10/19 06:01; Admin Dose 125 MCG; Start 01/28/19 at 07:00 Ferrous Sulfate (Feosol Liquid Cup) 300 mg WITH MEALS GTB Last administered on 02/10/19 09:49; Admin Dose 300 MG; Start 01/28/19 at 11:30 Multivitamins (Multivitamin) 30 ml DAILY GTB Last administered on 02/10/19 09:49; Admin Dose 30 ML; Start 01/28/19 at 11:00 Diagnostic Test (Pha) (Accu-Chek) 1 ea Q4 XX Last administered on 02/09/19 17:00; Admin Dose 1 EA; Start 01/28/19 at 13:00 Nystatin/ Triamcinolone Acetonide (Mycolog Oint) 1 applic BID TOP Last administered on 02/09/19 21:13; Admin Dose 1 APPLIC; Start 01/28/19 at 22:30 Insulin Aspart (Novolog Insulin Pen) NOVOLOG *MILD* ALGORI... Q4 SC Last administered on 02/09/19 01:46; Admin Dose 1 UNIT; Start 01/29/19 at 05:00 Albuterol/ Ipratropium (Duoneb) 3 ml Q6HWA RESP THERAPY HHN Last administered on 02/10/19 07:48; Admin Dose 3 ML; Start 01/29/19 at 14:00 Epoetin Dae-epbx (RETACRIT(non-esrd)) 40,000 unit Mo@1700 SC Last administered on 02/03/19 18:12; Admin Dose 40,000 UNIT; Start 02/03/19 at 17:00 Insulin Glargine (Lantus) 10 units DAILY@2000 SC Last administered on 02/09/19 22:16; Admin Dose 10 UNITS; Start 01/31/19 at 20:00 Aztreonam 1 gm/ Dextrose 50 ml @ 100 mls/hr Q12 IVPB Last administered on 02/10/19 09:49; Admin Dose 100 MLS/HR; Start 02/03/19 at 21:00 Metoprolol Tartrate (Lopressor) 12.5 mg BID PO Last administered on 02/10/19 09:50; Admin Dose 12.5 MG; Start 02/05/19 at 21:00 Eye Lubricant (Refresh Plus) 1 drop QID BOTH EYES Last administered on 02/09/19 20:58; Admin Dose 1 DROP; Start 02/06/19 at 09:00 Eye Lubricant (Akwa Oint) 1 applic HS LEFT EYE Last administered on 02/09/19 21:16; Admin Dose 1 APPLIC; Start 02/06/19 at 21:00 Multi-Ingredient Ointment (Aquaphor Oint 52.5 Gm) 1 applic BID TOP Last administered on 02/09/19 21:00; Admin Dose 1 APPLIC; Start 02/06/19 at 22:40 Lansoprazole (Prevacid) 30 mg BID@0600,1800 NGT Last administered on 02/10/19 06:01; Admin Dose 30 MG; Start 02/07/19 at 18:00 Tobramycin Sulfate/Sodium Chloride (Nilesh Inhal) 300 mg BID RESP THERAPY NEB Last administered on 02/10/19at 08:28; Admin Dose 300 MG; Start 02/08/19 at 09:00 Furosemide (Lasix) 20 mg BID DIURETICS IV Last administered on 02/10/19at 06:04; Admin Dose 20 MG; Start 02/08/19 at 18:00 Morphine Sulfate (morphine) 0.5 mg Q4H PRN IV SEVERE PAIN LEVEL 7-10; Start 02/08/19 at 19:00 Vancomycin HCl 750 mg/Dextrose 250 ml @ 125 mls/hr Q72H IVPB Last administered on 02/09/19at 22:56; Admin Dose 125 MLS/HR; Start 02/09/19 at 23:00 IVAN AKHTAR MD February 10, 2019 10:36
--- NOTE | 2019-02-10 11:56 | CONS ---
Assessment/Plan Assessment/Plan Hospital Course (Demo Recall) Patient was transferred to ICU secondary to hypoxemia currently on BiPAP in no distress afebrile WBC 16.1 H&H 7.9 and 25.8 platelets 117 BUN 75 creatinine 1.69Skin biopsy revealed no evidence of vasculitis no evidence of malignancy. Please see full report in chart Wound culture grew Corynebacterium species. Sputum culture grew E. coli C dif neg Antimicrobials: Vancomycin, aztreonam, tobramycin inhalation Indwelling: Left subclavian triple-lumen catheter, Wade catheter, NG tube Allergy: Penicillin, sulfa Physical examination: Obese well-developed chronically ill-appearing - [place] man who is lethargic, in no distress. Head atraumatic normocephalic sclera nonicteric. Neck is supple chest rise symmetrical breath sounds diminished bases. Heart: S1-S2. Abdomen obese soft bowel sounds present extremities without cyanosis, bilateral edema Assessment: 1. Ongoing sepsis s/p shock 2. Acute hypoxemic respiratory failure, started on BiPAP, possible aspirated 2. Acute encephalopathy 3. Seizures 4. Healthcare acquired pneumonia 5. Coronary artery disease/history of CABG 6. Advanced rheumatoid arthritis 5. Chronic atrial fibrillation 6. Diabetes 7. BPH 9. Acute on chronic anemia===> s/p EGD/colonoscopy 01/09/19 10. Status post right epididymitis 11. Pancreatic lesion per CT, unlikely neoplasm per oncology notes 12. 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, s/p punch bx Plan: Patient is doing poorly, continue present care, antibiotics, follow skin biopsy results== sent to [facility] for final identification, follow pulmonary recommendations Consultation Date/Type/Reason Admit Date/Time Jan 17, 2019 at 15:58 Initial Consult Date 01/18/19 Type of Consult id Requesting Provider: IVAN AKHTAR MD Date/Time of Note DATE: 02/10/19 TIME: 11:55 Exam/Review of Systems Exam Vitals Vital Signs Date Temp Pulse Resp B/P (MAP) Pulse Ox O2 O2 Flow FiO2 Time Delivery Rate 02/10/19 64 25 93/75 (81) 100 11:30 02/10/19 BIPAP 11:00 02/10/19 50 09:46 02/10/19 95.0 09:42 02/10/19 2.0 08:29 Intake and Output 02/09/19 02/09/19 02/10/19 1515:00 23:00 07:00 IntakeIntake Total 1760 ml 1230 ml OutputOutput Total 500 ml 1150 ml BalanceBalance 1260 ml 80 ml Results Result Diagram: 02/10/19 0537 02/10/19 0537 Results 24hrs Laboratory Tests Test 02/09/19 13:04 02/09/19 17:57 02/09/19 21:38 02/10/19 01:03 Bedside Glucose 106 125 137 158 Test 02/10/19 05:07 02/10/19 05:37 02/10/19 07:25 02/10/19 08:29 Bedside Glucose 159 White Blood 16.1 #H Count Red Blood Count 2.70 L Hemoglobin 7.9 L Hematocrit 25.8 L Mean Corpuscular 95.6 Volume Mean Corpuscular 29.3 Hemoglobin Mean Corpuscular 30.6 L Hemoglobin June nt Red Cell 21.1 H Distribution Width Platelet Count 117 L Mean Platelet 13.8 H Volume Immature 0.700 H Granulocytes % Neutrophils % Segmented 78 H Neutrophils % (Manual) Band Neutrophils 12 H % (Manual) Lymphocytes % Lymphocytes % 9 L (Manual) Monocytes % Eosinophils % Eosinophils % 1 (Manual) Basophils % Nucleated Red 0.4 H Blood Cells % Immature 0.120 H Granulocytes # Neutrophils # Neutrophils # 12.9 H (Manual) Band Neutrophils 1.9 H # Lymphocytes 1.4 (Manual) Lymphocytes # Monocytes # Eosinophils # Basophils # Nucleated Red Blood Cells # Platelet DECREASED Estimate Polychromasia 3+ Poikilocytosis 3+ Anisocytosis 2+ Microcytosis 1+ Macrocytosis 2+ Target Cells 1+ Sodium Level 149 H Potassium Level 5.4 H Chloride Level 117 H Carbon Dioxide 29 Level Anion Gap 3 L Blood Urea 75 H Nitrogen Creatinine 1.69 H Est Glomerular Filtrat Rate mL/min Glucose Level 143 # Calcium Level 7.7 L Lab Scanned BLOOD TRANSFUSI Report ON Blood Gas Blood arterial Specimen Source Arterial Blood 02/10/2019 8:50: Date Drawn 37 AM Arterial Blood 7.306 L pH (Temp corrected) Arterial Blood 59.7 H pCO2 (Temp correct) Arterial Blood 97.8 H pO2 (Temp corrected) Arterial Blood 29.1 H HCO3 Arterial Blood 2.1 Base Excess Arterial Blood 96.6 Oxygen Saturatio n Manuel Test ACCEPTAB Arterial Blood Left Radial Gas Puncture Site Arterial 0.8 Blood Carboxyhem oglobin Arterial Blood 0.5 Methemoglobin Blood Gas A-a O2 213.4 H Differential Oxyhemoglobin 95.3 Percent Blood Gas 37.0 Temperature Blood Gas MASK - SIMPLE Modality FiO2 53.0 Blood Gas TM Notified Whom Blood Gas 02/10/2019 9:00: Notified Time 25 AM Test 02/10/19 08:31 02/10/19 10:03 02/10/19 10:48 Bedside Glucose 152 134 Prothrombin Time 21.4 H Prothrombin Time 1.7 Ratio INR 1.85 International Normalized Ratio Medications Medication Current Medications Lactulose (Enulose) 20 gm DAILY PRN PO CONSTIPATION; Start 01/17/19 at 18:17 Acetaminophen (Tylenol Tab) 650 mg Q4H PRN PO PAIN Last administered on 01/23/19at 22:48; Admin Dose 650 MG; Start 01/17/19 at 18:17 Miscellaneous Information (Pending [facility] Order For Wound Care) This patient ramirez... PRN PRN XX WOUND CARE; Start 01/17/19 at 18:17 Albuterol/ Ipratropium (Duoneb) 3 ml Q2H RESP THERAPY PRN HHN SHORTNESS OF BREATH Last administered on 02/07/19at 05:45; Admin Dose 3 ML; Start 01/17/19 at 18:17 Bisacodyl (Dulcolax) 10 mg BID PRN PO CONSTIPATION; Start 01/17/19 at 18:17; Status Hold Folic Acid (Folic Acid) 1 mg DAILY PO Last administered on 02/10/19at 09:50; Admin Dose 1 MG; Start 01/17/19 at 18:17 Latanoprost (Xalatan) 1 drop HS BOTH EYES Last administered on 02/09/19at 21:15; Admin Dose 1 DROP; Start 01/17/19 at 18:17 Nitroglycerin (Nitroglycerin (Sl Tab) 0.4 Mg) 0.4 tab Q5M PRN SL CHEST PAIN; Start 01/17/19 at 18:17 Nystatin (Nystatin Powder) 1 applic BID TOP Last administered on 02/09/19at 21:11; Admin Dose 1 APPLIC; Start 01/17/19 at 18:17 IV Flush (NS 3 ml) 3 ml PER PROTOCOL IV ; Start 01/17/19 at 18:17 Miscellaneous Information 1 ea NOTE XX ; Start 01/17/19 at 18:17 Glucose (Glutose) 15 gm Q15M PRN PO DECREASED GLUCOSE; Start 01/17/19 at 18:17 Glucose (Glutose) 22.5 gm Q15M PRN PO DECREASED GLUCOSE; Start 01/17/19 at 18:17 Dextrose (D50w Syringe) 25 ml Q15M PRN IV DECREASED GLUCOSE Last administered on 02/05/19at 09:50; Admin Dose 25 ML; Start 01/17/19 at 18:17 Dextrose (D50w Syringe) 50 ml Q15M PRN IV DECREASED GLUCOSE; Start 01/17/19 at 18:17 Glucagon (Glucagen) 1 mg Q15M PRN IM DECREASED GLUCOSE; Start 01/17/19 at 18:17 Glucose (Glutose) 15 gm Q15M PRN BUCCAL DECREASED GLUCOSE; Start 01/17/19 at 18:17 Ascorbic Acid (Vitamin C) 250 mg DAILY PO Last administered on 02/10/19at 09:49; Admin Dose 250 MG; Start 01/17/19 at 18:17 Bisacodyl (Dulcolax Supp) 10 mg DAILY PRN [place] CONSTIPATION; Start 01/17/19 at 18:17 Zinc Acetate/ Diphenhydramine (Benadryl 2% Cr) 1 applic Q6H PRN TOP ITCHING Last administered on 01/26/19at 07:54; Admin Dose 1 APPLIC; Start 01/19/19 at 16:37 IV Flush (NS 10 ml) 10 ml PRN PRN IV IV PROTOCOL; Start 01/20/19 at 14:30 Cyanocobalamin (Vitamin B12 Inj) 1,000 mcg Q7D IM Last administered on 02/10/19at 09:50; Admin Dose 1,000 MCG; Start 02/03/19 at 09:00 Metoprolol Tartrate (Lopressor) 5 mg Q4H PRN IV HR>110 Hold SBP<100; Start 01/26/19 at 14:30 Vancomycin HCl (Vanco Iv Per Pharmacy) VANCOMYCIN PER PHARMACY PER PROTOCOL XX ; Start 01/27/19 at 12:00 Enoxaparin Sodium (Lovenox) 60 mg DAILY SC Last administered on 02/03/19at 08:06; Admin Dose 60 MG; Start 01/28/19 at 09:00; Status Hold Lorazepam (Ativan) 1 mg Q2 PRN IV SEIZURES Last administered on 02/09/19 04:51; Admin Dose 1 MG; Start 01/27/19 at 14:00 Atorvastatin Calcium (Lipitor) 40 mg QHS NGT Last administered on 02/09/19 21:01; Admin Dose 40 MG; Start 01/28/19 at 21:00 Docusate Sodium (Colace Liquid Cup) 100 mg BID NGT ; Start 01/27/19 at 22:00; Status Hold Terazosin HCl (Hytrin) 10 mg HS NGT Last administered on 02/09/19 21:01; Admin Dose 10 MG; Start 01/28/19 at 21:00 Levetiracetam 100 ml @ 400 mls/hr Q12 IVPB Last administered on 02/10/19 09:03; Admin Dose 400 MLS/HR; Start 01/28/19 at 09:00 Levothyroxine Sodium (Synthroid) 125 mcg BEFORE BREAKFAST NGT Last administered on 02/10/19 06:01; Admin Dose 125 MCG; Start 01/28/19 at 07:00 Ferrous Sulfate (Feosol Liquid Cup) 300 mg WITH MEALS GTB Last administered on 02/10/19 09:49; Admin Dose 300 MG; Start 01/28/19 at 11:30 Multivitamins (Multivitamin) 30 ml DAILY GTB Last administered on 02/10/19 09:49; Admin Dose 30 ML; Start 01/28/19 at 11:00 Diagnostic Test (Pha) (Accu-Chek) 1 ea Q4 XX Last administered on 02/10/19 10:00; Admin Dose 1 EA; Start 01/28/19 at 13:00 Nystatin/ Triamcinolone Acetonide (Mycolog Oint) 1 applic BID TOP Last administered on 02/09/19 21:13; Admin Dose 1 APPLIC; Start 01/28/19 at 22:30 Insulin Aspart (Novolog Insulin Pen) NOVOLOG *MILD* ALGORI... Q4 SC Last administered on 02/09/19 01:46; Admin Dose 1 UNIT; Start 01/29/19 at 05:00 Albuterol/ Ipratropium (Duoneb) 3 ml Q6HWA RESP THERAPY HHN Last administered on 02/10/19 07:48; Admin Dose 3 ML; Start 01/29/19 at 14:00 Epoetin Dae-epbx (RETACRIT(non-esrd)) 40,000 unit Mo@1700 SC Last administered on 02/03/19 18:12; Admin Dose 40,000 UNIT; Start 02/03/19 at 17:00 Insulin Glargine (Lantus) 10 units DAILY@2000 SC Last administered on 02/09/19 22:16; Admin Dose 10 UNITS; Start 01/31/19 at 20:00 Aztreonam 1 gm/ Dextrose 50 ml @ 100 mls/hr Q12 IVPB Last administered on 02/10/19 09:49; Admin Dose 100 MLS/HR; Start 02/03/19 at 21:00 Metoprolol Tartrate (Lopressor) 12.5 mg BID PO Last administered on 02/10/19 09:50; Admin Dose 12.5 MG; Start 02/05/19 at 21:00 Eye Lubricant (Refresh Plus) 1 drop QID BOTH EYES Last administered on 02/09/19 20:58; Admin Dose 1 DROP; Start 02/06/19 at 09:00 Eye Lubricant (Akwa Oint) 1 applic HS LEFT EYE Last administered on 02/09/19 21:16; Admin Dose 1 APPLIC; Start 02/06/19 at 21:00 Multi-Ingredient Ointment (Aquaphor Oint 52.5 Gm) 1 applic BID TOP Last admini stered on 02/09/19 21:00; Admin Dose 1 APPLIC; Start 02/06/19 at 22:40 Lansoprazole (Prevacid) 30 mg BID@0600,1800 NGT Last administered on 02/10/19 06:01; Admin Dose 30 MG; Start 02/07/19 at 18:00 Tobramycin Sulfate/Sodium Chloride (Nilesh Inhal) 300 mg BID RESP THERAPY NEB Last administered on 02/10/19 08:28; Admin Dose 300 MG; Start 02/08/19 at 09:00 Furosemide (Lasix) 20 mg BID DIURETICS IV Last administered on 02/10/19 06:04; Admin Dose 20 MG; Start 02/08/19 at 18:00 Morphine Sulfate (morphine) 0.5 mg Q4H PRN IV SEVERE PAIN LEVEL 7-10; Start 02/08/19 at 19:00 Vancomycin HCl 750 mg/Dextrose 250 ml @ 125 mls/hr Q72H IVPB Last administered on 02/09/19at 22:56; Admin Dose 125 MLS/HR; Start 02/09/19 at 23:00 LUCIAN HARKINS NP February 10, 2019 11:56
[2019-02-10] MEDS: AQUAPHOR 52.5 GM OINT TOP SCH ×2 (12:30→21:06)
[2019-02-10] MEDS: NYSTATIN 30 GM POWDER BTL TOP SCH ×2 (12:31→21:29)
[2019-02-10] MEDS: BALSAM PERU/CASTOR OIL 60 GM TUBE TOP SCH ×2 (12:31→21:28)
[2019-02-10] MEDS: NYSTATIN/TRIAMCINOLONE 15 GM OINT TOP SCH ×2 (12:31→21:28)
--- NOTE | 2019-02-10 13:57 | RADRPT ---
Vent Rate: 82 bpm RR Interval: 732 msec NV Interval: [id number] msec QRS Duration: 82 msec QT Interval: 361 msec QTC Interval: 422 msec P-R-T Guffey: [id number] - 48 - 138 degrees Atrial fibrillation...? atrial activity Low voltage, extremity leads...all extremity leads <0.5mV Nonspecific T abnormalities, lateral leads...T <-0.10mV, I aVL V5 V6 Lead(s) aVL were not used for morphology analysis Electronically Signed By: Chas Robertson
--- NOTE | 2019-02-10 14:29 | CONS ---
Consult Date/Type/Reason Admit Date/Time Jan 17, 2019 at 15:58 Initial Consult Date 01/18/19 Type of Consult Pulmonary Requesting Provider: IVAN AKHTAR MD Date/Time of Note DATE: 02/10/19 TIME: 14:28 Subjective Patient transferred to ICU this morning for increased work of breathing and hypoxemia. Placed on BiPAP appears more comfortable at present. Objective Vital Signs Date Temp Pulse Resp B/P (MAP) Pulse Ox O2 O2 Flow FiO2 Time Delivery Rate 02/10/19 66 12:00 02/10/19 25 93/75 (81) 100 11:30 02/10/19 BIPAP 11:00 02/10/19 50 09:46 02/10/19 95.0 09:42 02/10/19 2.0 08:29 Intake and Output 02/09/19 02/09/19 02/10/19 1515:00 23:00 07:00 IntakeIntake Total 1760 ml 1230 ml OutputOutput Total 500 ml 1150 ml BalanceBalance 1260 ml 80 ml Exam GENERAL: Frail elderly gentleman comfortable at rest on bilevel ventilation. VITAL SIGNS: per chart NECK: Supple. No JVD or lymphadenopathy. CARDIAC EXAM: S1, S2. No added sounds or murmurs. CHEST: Diminished air entry both bases ABDOMEN: Soft, nontender. No guarding or rebound. EXTREMITIES: No cyanosis, clubbing edema +2 NEUROLOGIC: Generalized weakness. Vent Setting Ventilator Support Mode: AC Fraction of Inspired Oxygen pe: 70 Positive End Expiratory Pressu: 5.0 Results/Medications Result Diagram: 02/10/19 0537 02/10/19 0537 Results 24 hrs Laboratory Tests Test 02/09/19 17:57 02/09/19 21:38 02/10/19 01:03 02/10/19 05:07 Bedside Glucose 125 137 158 159 Test 02/10/19 05:37 02/10/19 07:25 02/10/19 08:29 02/10/19 08:31 White Blood 16.1 #H Count Red Blood Count 2.70 L Hemoglobin 7.9 L Hematocrit 25.8 L Mean Corpuscular 95.6 Volume Mean Corpuscular 29.3 Hemoglobin Mean Corpuscular 30.6 L Hemoglobin June nt Red Cell 21.1 H Distribution Width Platelet Count 117 L Mean Platelet 13.8 H Volume Immature 0.700 H Granulocytes % Neutrophils % Segmented 78 H Neutrophils % (Manual) Band Neutrophils 12 H % (Manual) Lymphocytes % Lymphocytes % 9 L (Manual) Monocytes % Eosinophils % Eosinophils % 1 (Manual) Basophils % Nucleated Red 0.4 H Blood Cells % Immature 0.120 H Granulocytes # Neutrophils # Neutrophils # 12.9 H (Manual) Band Neutrophils 1.9 H # Lymphocytes 1.4 (Manual) Lymphocytes # Monocytes # Eosinophils # Basophils # Nucleated Red Blood Cells # Platelet DECREASED Estimate Polychromasia 3+ Poikilocytosis 3+ Anisocytosis 2+ Microcytosis 1+ Macrocytosis 2+ Target Cells 1+ Sodium Level 149 H Potassium Level 5.4 H Chloride Level 117 H Carbon Dioxide 29 Level Anion Gap 3 L Blood Urea 75 H Nitrogen Creatinine 1.69 H Est Glomerular Filtrat Rate mL/min Glucose Level 143 # Calcium Level 7.7 L Lab Scanned BLOOD TRANSFUSI Report ON Blood Gas Blood arterial Specimen Source Arterial Blood 02/10/2019 8:50: Date Drawn 37 AM Arterial Blood 7.306 L pH (Temp corrected) Arterial Blood 59.7 H pCO2 (Temp correct) Arterial Blood 97.8 H pO2 (Temp corrected) Arterial Blood 29.1 H HCO3 Arterial Blood 2.1 Base Excess Arterial Blood 96.6 Oxygen Saturatio n Manuel Test ACCEPTAB Arterial Blood Left Radial Gas Puncture Site Arterial 0.8 Blood Carboxyhem oglobin Arterial Blood 0.5 Methemoglobin Blood Gas A-a O2 213.4 H Differential Oxyhemoglobin 95.3 Percent Blood Gas 37.0 Temperature Blood Gas MASK - SIMPLE Modality FiO2 53.0 Blood Gas TM Notified Whom Blood Gas 02/10/2019 9:00: Notified Time 25 AM Bedside Glucose 152 Test 02/10/19 10:03 02/10/19 10:48 02/10/19 13:25 Bedside Glucose 134 85 Prothrombin Time 21.4 H Prothrombin Time 1.7 Ratio INR 1.85 International Normalized Ratio Medications Current Medications Lactulose (Enulose) 20 gm DAILY PRN PO CONSTIPATION; Start 01/17/19 at 18:17 Acetaminophen (Tylenol Tab) 650 mg Q4H PRN PO PAIN Last administered on 01/23/19at 22:48; Admin Dose 650 MG; Start 01/17/19 at 18:17 Miscellaneous Information (Pending [facility]) This patient ramirez... PRN PRN XX WOUND CARE; Start 01/17/19 at 18:17 Albuterol/ Ipratropium (Duoneb) 3 ml Q2H RESP THERAPY PRN HHN SHORTNESS OF BREATH Last administered on 02/07/19at 05:45; Admin Dose 3 ML; Start 01/17/19 at 18:17 Bisacodyl (Dulcolax) 10 mg BID PRN PO CONSTIPATION; Start 01/17/19 at 18:17; Status Hold Folic Acid (Folic Acid) 1 mg DAILY PO Last administered on 02/10/19at 09:50; Admin Dose 1 MG; Start 01/17/19 at 18:17 Latanoprost (Xalatan) 1 drop HS BOTH EYES Last administered on 02/09/19at 21:15; Admin Dose 1 DROP; Start 01/17/19 at 18:17 Nitroglycerin (Nitroglycerin (Sl Tab) 0.4 Mg) 0.4 tab Q5M PRN SL CHEST PAIN; Start 01/17/19 at 18:17 Nystatin (Nystatin Powder) 1 applic BID TOP Last administered on 02/10/19at 12:31; Admin Dose 1 APPLIC; Start 01/17/19 at 18:17 IV Flush (NS 3 ml) 3 ml PER PROTOCOL IV ; Start 01/17/19 at 18:17 Miscellaneous Information 1 ea NOTE XX ; Start 01/17/19 at 18:17 Glucose (Glutose) 15 gm Q15M PRN PO DECREASED GLUCOSE; Start 01/17/19 at 18:17 Glucose (Glutose) 22.5 gm Q15M PRN PO DECREASED GLUCOSE; Start 01/17/19 at 18:17 Dextrose (D50w Syringe) 25 ml Q15M PRN IV DECREASED GLUCOSE Last administered on 02/05/19at 09:50; Admin Dose 25 ML; Start 01/17/19 at 18:17 Dextrose (D50w Syringe) 50 ml Q15M PRN IV DECREASED GLUCOSE; Start 01/17/19 at 18:17 Glucagon (Glucagen) 1 mg Q15M PRN IM DECREASED GLUCOSE; Start 01/17/19 at 18:17 Glucose (Glutose) 15 gm Q15M PRN BUCCAL DECREASED GLUCOSE; Start 01/17/19 at 18:17 Ascorbic Acid (Vitamin C) 250 mg DAILY PO Last administered on 02/10/19at 09:49; Admin Dose 250 MG; Start 01/17/19 at 18:17 Bisacodyl (Dulcolax Supp) 10 mg DAILY PRN [place] CONSTIPATION; Start 01/17/19 at 18:17 Zinc Acetate/ Diphenhydramine (Benadryl 2% Cr) 1 applic Q6H PRN TOP ITCHING Last administered on 01/26/19 07:54; Admin Dose 1 APPLIC; Start 01/19/19 at 1 6:37 IV Flush (NS 10 ml) 10 ml PRN PRN IV IV PROTOCOL; Start 01/20/19 at 14:30 Cyanocobalamin (Vitamin B12 Inj) 1,000 mcg Q7D IM Last administered on 02/10/19 09:50; Admin Dose 1,000 MCG; Start 02/03/19 at 09:00 Metoprolol Tartrate (Lopressor) 5 mg Q4H PRN IV HR>110 Hold SBP<100; Start 01/26/19 at 14:30 Vancomycin HCl (Vanco Iv Per Pharmacy) VANCOMYCIN PER PHARMACY PER PROTOCOL XX ; Start 01/27/19 at 12:00 Enoxaparin Sodium (Lovenox) 60 mg DAILY SC Last administered on 02/03/19at 08:06; Admin Dose 60 MG; Start 01/28/19 at 09:00; Status Hold Lorazepam (Ativan) 1 mg Q2 PRN IV SEIZURES Last administered on 02/09/19at 04:51; Admin Dose 1 MG; Start 01/27/19 at 14:00 Atorvastatin Calcium (Lipitor) 40 mg QHS NGT Last administered on 02/09/19at 21:01; Admin Dose 40 MG; Start 01/28/19 at 21:00 Docusate Sodium (Colace Liquid Cup) 100 mg BID NGT ; Start 01/27/19 at 22:00; Status Hold Terazosin HCl (Hytrin) 10 mg HS NGT Last administered on 02/09/19at 21:01; Admin Dose 10 MG; Start 01/28/19 at 21:00 Levetiracetam 100 ml @ 400 mls/hr Q12 IVPB Last administered on 02/10/19at 09:03; Admin Dose 400 MLS/HR; Start 01/28/19 at 09:00 Levothyroxine Sodium (Synthroid) 125 mcg BEFORE BREAKFAST NGT Last administered on 02/10/19 06:01; Admin Dose 125 MCG; Start 01/28/19 at 07:00 Ferrous Sulfate (Feosol Liquid Cup) 300 mg WITH MEALS GTB Last administered on 02/10/19 13:24; Admin Dose 300 MG; Start 01/28/19 at 11:30 Multivitamins (Multivitamin) 30 ml DAILY GTB Last administered on 02/10/19 09:49; Admin Dose 30 ML; Start 01/28/19 at 11:00 Diagnostic Test (Pha) (Accu-Chek) 1 ea Q4 XX Last administered on 02/10/19 13:24; Admin Dose 1 EA; Start 01/28/19 at 13:00 Nystatin/ Triamcinolone Acetonide (Mycolog Oint) 1 applic BID TOP Last administered on 02/10/19 12:31; Admin Dose 1 APPLIC; Start 01/28/19 at 22:30 Insulin Aspart (Novolog Insulin Pen) NOVOLOG *MILD* ALGORI... Q4 SC Last administered on 02/09/19 01:46; Admin Dose 1 UNIT; Start 01/29/19 at 05:00 Albuterol/ Ipratropium (Duoneb) 3 ml Q6HWA RESP THERAPY HHN Last administered on 02/10/19 07:48; Admin Dose 3 ML; Start 01/29/19 at 14:00 Epoetin Dae-epbx (RETACRIT(non-esrd)) 40,000 unit Mo@1700 SC Last administered on 02/03/19 18:12; Admin Dose 40,000 UNIT; Start 02/03/19 at 17:00 Insulin Glargine (Lantus) 10 units DAILY@2000 SC Last administered on 02/09/19 22:16; Admin Dose 10 UNITS; Start 01/31/19 at 20:00 Aztreonam 1 gm/ Dextrose 50 ml @ 100 mls/hr Q12 IVPB Last administered on 02/10/19 09:49; Admin Dose 100 MLS/HR; Start 02/03/19 at 21:00 Metoprolol Tartrate (Lopressor) 12.5 mg BID PO Last administered on 02/10/19 09:50; Admin Dose 12.5 MG; Start 02/05/19 at 21:00 Eye Lubricant (Refresh Plus) 1 drop QID BOTH EYES Last administered on 02/09/19 20:58; Admin Dose 1 DROP; Start 02/06/19 at 09:00 Eye Lubricant (Akwa Oint) 1 applic HS LEFT EYE Last administered on 02/09/19 21:16; Admin Dose 1 APPLIC; Start 02/06/19 at 21:00 Multi-Ingredient Ointment (Aquaphor Oint 52.5 Gm) 1 applic BID TOP Last administered on 02/10/19 12:30; Admin Dose 1 APPLIC; Start 02/06/19 at 22:40 Lansoprazole (Prevacid) 30 mg BID@0600,1800 NGT Last administered on 02/10/19 06:01; Admin Dose 30 MG; Start 02/07/19 at 18:00 Tobramycin Sulfate/Sodium Chloride (Nilesh Inhal) 300 mg BID RESP THERAPY NEB Last administered on 02/10/19 08:28; Admin Dose 300 MG; Start 02/08/19 at 09:00 Furosemide (Lasix) 20 mg BID DIURETICS IV Last administered on 02/10/19at 06:04; Admin Dose 20 MG; Start 02/08/19 at 18:00 Morphine Sulfate (morphine) 0.5 mg Q4H PRN IV SEVERE PAIN LEVEL 7-10; Start 02/08/19 at 19:00 Vancomycin HCl 750 mg/Dextrose 250 ml @ 125 mls/hr Q72H IVPB Last administered on 02/09/19 22:56; Admin Dose 125 MLS/HR; Start 02/09/19 at 23:00 Assessment/Plan Hospital Course (Demo Recall) IMP: 1. s/p Acute hypoxemic respiratory failure likely secondary to combination of volume overload and pneumonia, now requiring bilevel ventilation again. 2. Encephalopathy underlying dementia versus toxic metabolic, appears to be slowly improving possibly secondary to elevated sodium. 3. Valvular heart disease 4. Severe dysphagia 5. Status post septic shock likely secondary to above, persistent leukocytosis. 6. Anemia, no active GI bleeding 7. Skin diffuse excoriating skin lesion unclear etiology not consistent with history of "red man" syndrome. or pemphigus. Likely drug reaction. 8. Anemia RECS: 1. Monitor respiratory status closely. 2. Continue broad-spectrum antibiotics 3. Infectious work-up as per ID 4. Consider further unit of PRBCs 5. Palliative care consult appreciated 6. Electrolytes per nephrology. 7. Continue bilevel ventilation. Critical care time 40 minutes. Consider DNR CODE STATUS Overall prognosis remains guarded DIANA MCRAE MD, FCCP February 10, 2019 14:29
[2019-02-10] MEDS: EPOETIN ALFA-EPBX (NON-ESRD 10,000 UNIT/ML VIAL SC SCH (18:06)
[2019-02-10] MEDS ORDERED: LORAZEPAM 2 MG INJ IV PRN (19:00)
[2019-02-10] MEDS: ATORVASTATIN 40 MG TAB NGT SCH (20:54)
[2019-02-10] MEDS: LATANOPROST 0.005% 2.5 ML OPH BOTH EYES SCH (20:56)
[2019-02-10] MEDS: TERAZOSIN 5 MG CAP NGT SCH (21:00)
[2019-02-10] MEDS: INSULIN GLARGINE [LANTus] (100 UNITS/ML) SYG SC SCH (21:41)
[2019-02-10] MEDS ORDERED: SOD CHLORIDE 0.9% 250 ML IV ONE (22:00)
[2019-02-10] MEDS: OCULAR LUBRICANT 3.5 GM OPH OINT LEFT EYE SCH (23:20)
[2019-02-11] VITALS (37 sets, daily range): BP systolic 90–147; BP diastolic 35–129; PULSE 65–89; RESP 15–36
[2019-02-11] MEDS: INSULIN ASPART [NOVOLOG] 3 ML PEN SC SCH ×6 (01:00→20:49)
[2019-02-11] MEDS: ACCU-CHEK XX SCH ×6 (01:14→21:00)
[2019-02-11] MEDS: LANSOPRAZOLE 30 MG CAP NGT SCH ×2 (06:39→17:59)
[2019-02-11] MEDS: LEVOTHYROXINE 125 MCG TAB NGT SCH (06:39)
[2019-02-11] MEDS: FUROSEMIDE 20 MG INJ IV SCH ×2 (06:39→17:55)
--- NOTE | 2019-02-11 07:20 | CONS ---
Assessment/Plan Assessment/Plan Assessment/Plan (Daily) Stated note for ICU visit February 10, 2019 Assessment/Plan Assessment/Plan Assessment/Plan (Daily) Very ill gentleman who is been admitted to the intensive care unit with sepsis syndrome elevated white blood cell count lactic acidosis, abnormal chest x-ray. History of chronic renal failure. Serious comorbid medical problems indicating a poor outcome including good mental status, low total protein albumin levels multiple comorbid medical problems possible history of immunosuppression secondary to rheumatoid arthritis. It is unknown whether not patient was on immune modulators targeted therapy prior to hospitalization. Contact family members established CODE STATUS. Overall prognosis and PPS score indicates poor outcome After long conversation with patient's daughter 1 day after discussing his changed to DO NOT RESUSCITATE CODE STATUS she rescinded that order and change pacing back to full code. He has not been transferred back into the intensive care unit altered with sepsis syndrome requiring BiPAP, broad-spectrum IV antibiotic coverage for probable pneumonia. Overall prognosis now extremely poor secondary to another major change in his overall clinical condition during his hospitalization. We will contact patient's daughter again however I am not optimistic that she will change her mind back to DO NOT RESUSCITATE. Consultation Date/Type/Reason Admit Date/Time Jan 17, 2019 at 15:58 Initial Consult Date 01/18/19 Requesting Provider: IVAN AKHTAR MD Date/Time of Note DATE: 02/11/19 TIME: : Exam/Review of Systems Exam Vitals Vital Signs Date Temp Pulse Resp B/P (MAP) Pulse Ox O2 O2 Flow FiO2 Time Delivery Rate 02/11/19 76 21 105/61 100 BIPAP 06:00 (76) 02/11/19 30 05:51 02/11/19 93.5 04:30 02/10/19 2.0 08:29 Intake and Output 02/10/19 02/10/19 02/11/19 1515:00 23:00 07:00 IntakeIntake Total 810 ml 805 ml 757 ml OutputOutput Total 700 ml 755 ml 555 ml BalanceBalance 110 ml 50 ml 202 ml Results Result Diagram: 02/11/19 0440 02/11/19 0440 Results 24hrs Laboratory Tests Test 02/10/19 07:25 02/10/19 08:29 02/10/19 08:31 02/10/19 10:03 Lab Scanned BLOOD TRANSFUSI Report ON Blood Gas Blood arterial Specimen Source Arterial Blood 02/10/2019 8:50: Date Drawn 37 AM Arterial Blood 7.306 L pH (Temp corrected ) Arterial Blood 59.7 H pCO2 (Temp correct) Arterial Blood 97.8 H pO2 (Temp corrected ) Arterial Blood 29.1 H HCO3 Arterial Blood 2.1 Base Excess Arterial Blood 96.6 Oxygen Saturati on Manuel Test ACCEPTAB Arterial Blood Left Radial Gas Puncture Site Arterial 0.8 Blood Carboxyhe moglobin Arterial Blood 0.5 Methemoglobin Blood Gas A-a 213.4 H O2 Differential Oxyhemoglobin 95.3 Percent Blood Gas 37.0 Temperature Blood Gas MASK - SIMPLE Modality FiO2 53.0 Blood Gas TM Notified Whom Blood Gas 02/10/2019 9:00: Notified Time 25 AM Bedside Glucose 152 134 Test 02/10/19 10:48 02/10/19 13:25 02/10/19 17:05 02/10/19 21:24 Prothrombin 21.4 H Time Prothrombin 1.7 Time Ratio INR 1.85 International Normalized Rati o Bedside Glucose 85 73 109 Test 02/11/19 01:10 02/11/19 04:40 02/11/19 04:57 02/11/19 05:35 Bedside Glucose 118 135 White Blood 11.6 #H Count Red Blood Count 2.97 L Hemoglobin 8.6 L Hematocrit 27.9 L Mean 93.9 Corpuscular Volume Mean 29.0 Corpuscular Hemoglobin Mean 30.8 L Corpuscular Hemoglobin Conc ent Red Cell 21.2 H Distribution Width Platelet Count 121 L Mean Platelet 13.6 H Volume Immature 0.500 H Granulocytes % Neutrophils % 86.8 H Lymphocytes % 11.2 L Monocytes % 1.4 Eosinophils % 0.0 Basophils % 0.1 Nucleated Red 0.4 H Blood Cells % Immature 0.060 H Granulocytes # Neutrophils # 10.1 H Lymphocytes # 1.3 Monocytes # 0.2 L Eosinophils # 0.0 Basophils # 0.0 Nucleated Red 0.1 H Blood Cells # Sodium Level 150 H Potassium Level 5.1 Chloride Level 115 H Carbon Dioxide 29 Level Anion Gap 6 Blood Urea 75 H Nitrogen Creatinine 1.70 H Est Glomerular Filtrat Rate mL/min Glucose Level 112 Calcium Level 8.1 L Phosphorus 5.3 H Level Magnesium Level 2.1 Lab Scanned BLOOD TRANSFUS Report ION Test 02/11/19 06:00 Blood Gas Blood arterial Specimen Source Arterial Blood 02/11/2019 5:28: Date Drawn 30 AM Arterial Blood 7.397 pH (Temp corrected ) Arterial Blood 45.9 H pCO2 (Temp correct) Arterial Blood 116.3 H pO2 (Temp corrected ) Arterial Blood 27.6 H HCO3 Arterial Blood 2.4 Base Excess Arterial Blood 98.0 Oxygen Saturati on Manuel Test ACCEPTAB Arterial Blood LB Gas Puncture Site Arterial 0.3 Blood Carboxyhe moglobin Arterial Blood 0.3 Methemoglobin Blood Gas A-a 116.1 H O2 Differential Oxyhemoglobin 97.4 Percent Blood Gas 37.0 Temperature Blood Gas 21 Actual Respiration Rat e Blood Gas MASK - BIPAP Modality FiO2 40.0 Blood Gas 18/8 IPAP/EPAP Ratio Blood Gas [facility] Notified Whom Blood Gas 02/11/2019 5:38: Notified Time 50 AM Medications Medication Current Medications Lactulose (Enulose) 20 gm DAILY PRN PO CONSTIPATION; Start 01/17/19 at 18:17 Acetaminophen (Tylenol Tab) 650 mg Q4H PRN PO PAIN Last administered on 01/23/19at 22:48; Admin Dose 650 MG; Start 01/17/19 at 18:17 Miscellaneous Information (Pending [facility] Order For Wound Care) This patient ramirez... PRN PRN XX WOUND CARE; Start 01/17/19 at 18:17 Albuterol/ Ipratropium (Duoneb) 3 ml Q2H RESP THERAPY PRN HHN SHORTNESS OF BREATH Last administered on 02/07/19at 05:45; Admin Dose 3 ML; Start 01/17/19 at 18:17 Bisacodyl (Dulcolax) 10 mg BID PRN PO CONSTIPATION; Start 01/17/19 at 18:17; Status Hold Folic Acid (Folic Acid) 1 mg DAILY PO Last administered on 02/10/19at 09:50; Admin Dose 1 MG; Start 01/17/19 at 18:17 Latanoprost (Xalatan) 1 drop HS BOTH EYES Last administered on 02/10/19at 20:56; Admin Dose 1 DROP; Start 01/17/19 at 18:17 Nitroglycerin (Nitroglycerin (Sl Tab) 0.4 Mg) 0.4 tab Q5M PRN SL CHEST PAIN; Start 01/17/19 at 18:17 Nystatin (Nystatin Powder) 1 applic BID TOP Last administered on 02/10/19at 21:29; Admin Dose 1 APPLIC; Start 01/17/19 at 18:17 IV Flush (NS 3 ml) 3 ml PER PROTOCOL IV ; Start 01/17/19 at 18:17 Miscellaneous Information 1 ea NOTE XX ; Start 01/17/19 at 18:17 Glucose (Glutose) 15 gm Q15M PRN PO DECREASED GLUCOSE; Start 01/17/19 at 18:17 Glucose (Glutose) 22.5 gm Q15M PRN PO DECREASED GLUCOSE; Start 01/17/19 at 18:17 Dextrose (D50w Syringe) 25 ml Q15M PRN IV DECREASED GLUCOSE Last administered on 02/05/19at 09:50; Admin Dose 25 ML; Start 01/17/19 at 18:17 Dextrose (D50w Syringe) 50 ml Q15M PRN IV DECREASED GLUCOSE; Start 01/17/19 at 18:17 Glucagon (Glucagen) 1 mg Q15M PRN IM DECREASED GLUCOSE; Start 01/17/19 at 18:17 Glucose (Glutose) 15 gm Q15M PRN BUCCAL DECREASED GLUCOSE; Start 01/17/19 at 18:17 Ascorbic Acid (Vitamin C) 250 mg DAILY PO Last administered on 02/10/19at 09:49; Admin Dose 250 MG; Start 01/17/19 at 18:17 Bisacodyl (Dulcolax Supp) 10 mg DAILY PRN [place] CONSTIPATION; Start 01/17/19 at 18:17 Zinc Acetate/ Diphenhydramine (Benadryl 2% Cr) 1 applic Q6H PRN TOP ITCHING Last administered on 01/26/19at 07:54; Admin Dose 1 APPLIC; Start 01/19/19 at 16:37 IV Flush (NS 10 ml) 10 ml PRN PRN IV IV PROTOCOL; Start 01/20/19 at 14:30 Cyanocobalamin (Vitamin B12 Inj) 1,000 mcg Q7D IM Last administered on 02/10/19 09:50; Admin Dose 1,000 MCG; Start 02/03/19 at 09:00 Metoprolol Tartrate (Lopressor) 5 mg Q4H PRN IV HR>110 Hold SBP<100; Start 01/26/19 at 14:30 Vancomycin HCl (Vanco Iv Per Pharmacy) VANCOMYCIN PER PHARMACY PER PROTOCOL XX ; Start 01/27/19 at 12:00 Enoxaparin Sodium (Lovenox) 60 mg DAILY SC Last administered on 02/03/19 08:06; Admin Dose 60 MG; Start 01/28/19 at 09:00; Status Hold Lorazepam (Ativan) 1 mg Q2 PRN IV SEIZURES Last administered on 02/09/19 04:51; Admin Dose 1 MG; Start 01/27/19 at 14:00 Atorvastatin Calcium (Lipitor) 40 mg QHS NGT Last administered on 02/10/19 20:54; Admin Dose 40 MG; Start 01/28/19 at 21:00 Docusate Sodium (Colace Liquid Cup) 100 mg BID NGT ; Start 01/27/19 at 22:00; Status Hold Terazosin HCl (Hytrin) 10 mg HS NGT Last administered on 02/09/19 21:01; Admin Dose 10 MG; Start 01/28/19 at 21:00 Levetiracetam 100 ml @ 400 mls/hr Q12 IVPB Last administered on 02/10/19 21:00; Admin Dose 400 MLS/HR; Start 01/28/19 at 09:00 Levothyroxine Sodium (Synthroid) 125 mcg BEFORE BREAKFAST NGT Last administered on 02/11/19 06:39; Admin Dose 125 MCG; Start 01/28/19 at 07:00 Ferrous Sulfate (Feosol Liquid Cup) 300 mg WITH MEALS GTB Last administered on 02/10/19 18:04; Admin Dose 300 MG; Start 01/28/19 at 11:30 Multivitamins (Multivitamin) 30 ml DAILY GTB Last administered on 02/10/19 09:49; Admin Dose 30 ML; Start 01/28/19 at 11:00 Diagnostic Test (Pha) (Accu-Chek) 1 ea Q4 XX Last administered on 5/21/19at 05:00; Admin Dose 1 EA; Start 01/28/19 at 13:00 Nystatin/ Triamcinolone Acetonide (Mycolog Oint) 1 applic BID TOP Last administered on 02/10/19 21:28; Admin Dose 1 APPLIC; Start 01/28/19 at 22:30 Insulin Aspart (Novolog Insulin Pen) NOVOLOG *MILD* ALGORI... Q4 SC Last administered on 02/09/19 01:46; Admin Dose 1 UNIT; Start 01/29/19 at 05:00 Albuterol/ Ipratropium (Duoneb) 3 ml Q6HWA RESP THERAPY HHN Last administered on 02/10/19 19:48; Admin Dose 3 ML; Start 01/29/19 at 14:00 Epoetin Dae-epbx (RETACRIT(non-esrd)) 40,000 unit Mo@1700 SC Last administered on 02/10/19 18:06; Admin Dose 40,000 UNIT; Start 02/03/19 at 17:00 Insulin Glargine (Lantus) 10 units DAILY@2000 SC Last administered on 02/10/19 21:41; Admin Dose 10 UNITS; Start 01/31/19 at 20:00 Aztreonam 1 gm/ Dextrose 50 ml @ 100 mls/hr Q12 IVPB Last administered on 02/10/19 21:00; Admin Dose 100 MLS/HR; Start 02/03/19 at 21:00 Metoprolol Tartrate (Lopressor) 12.5 mg BID PO Last administered on 02/10/19 09:50; Admin Dose 12.5 MG; Start 02/05/19 at 21:00 Eye Lubricant (Refresh Plus) 1 drop QID BOTH EYES Last administered on 02/10/19 20:58; Admin Dose 1 DROP; Start 02/06/19 at 09:00 Eye Lubricant (Akwa Oint) 1 applic HS LEFT EYE Last administered on 02/10/19 23:20; Admin Dose 1 APPLIC; Start 02/06/19 at 21:00 Multi-Ingredient Ointment (Aquaphor Oint 52.5 Gm) 1 applic BID TOP Last administered on 02/10/19 21:06; Admin Dose 1 APPLIC; Start 02/06/19 at 22:40 Lansoprazole (Prevacid) 30 mg BID@0600,1800 NGT Last administered on 02/11/19 06:39; Admin Dose 30 MG; Start 02/07/19 at 18:00 Tobramycin Sulfate/Sodium Chloride (Nilesh Inhal) 300 mg BID RESP THERAPY NEB Last administered on 02/10/19 19:48; Admin Dose 300 MG; Start 02/08/19 at 09:00 Furosemide (Lasix) 20 mg BID DIURETICS IV Last administered on 02/11/19 06:3 9; Admin Dose 20 MG; Start 02/08/19 at 18:00 Morphine Sulfate (morphine) 0.5 mg Q4H PRN IV SEVERE PAIN LEVEL 7-10 Last administered on 02/10/19 18:18; Admin Dose 0.5 MG; Start 02/08/19 at 19:00 Vancomycin HCl 750 mg/Dextrose 250 ml @ 125 mls/hr Q72H IVPB Last administered on 02/09/19 22:56; Admin Dose 125 MLS/HR; Start 02/09/19 at 23:00 Lorazepam (Ativan) 1 mg Q6H PRN IV AGITATION Last administered on 02/10/19 20:50; Admin Dose 1 MG; Start 02/10/19 at 19:00 MARGARITO WILSON February 11, 2019 07:20
--- NOTE | 2019-02-11 07:40 | CONS ---
Assessment/Plan Assessment/Plan Hospital Course (Demo Recall) 88 yo male [facility] for SOB and febrile 1. Severe anemia likely due to chronic disease, last work up while admitted to [facility] about a week ago was neg for GI bleeding, including EGD/colon which was done -s/p EGD and colonoscopy by Dr Frost 01/09/19 which didn't find an obvious GI etiology to explain anemia. AVM or a small lesion could be missed due to poor prep. Pt likely needs capsule endoscopy -Neg fob, elevate retic, Low iron, tibc, [place] [id number] 2. Cystic lesion along pancreas body - 4.3 cm cystic lesion along the pancreas body, enlarged since 10/10/2012 (previously 2.4 cm). 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 -CEA wnl 3. Severe gastritis 4. Hemorrhoids 5. Hital hernia 6. A fib, -eliquis was stopped 01/06 during previous admission, on ASA 7. COPD 8. HTN 9. Hypothyroidism 10. Bilateral groin cellulitis 11. Rheumatoid arthritis. 12. Diabetes mellitus. 13. Peripheral vascular disease. 14. CHF 15. 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 Sepsis secondary to pneumonia 18. Encephalopathy secondary to sepsis 19. Hypothermia 20. Coagulopathy -INR 1.77 21. Positive wound culture -CORYNEBACTERIUM SPECIES Plan: Family has consented to PEG but pt is not stable. Monitor HH and replace as needed Consider push endoscopy because pt is having continued unexplained severe anemia Pt will need outpatient EUS to evaluate pancreatic mass Recommend capsule endoscopy as outpatient Pt examined and plan of care discussed with Dr. Frost Consultation Date/Type/Reason Admit Date/Time Jan 17, 2019 at 15:58 Initial Consult Date 01/18/19 Requesting Provider: IVAN AKHTAR MD Date/Time of Note DATE: 02/11/19 TIME: 07:33 24 HR Interval Summary Free Text/Dictation WBC coming down. HH stable. Hypothermia. Neda hugger on. Transferred to ICU on bipap. Confused. 1:1 sitter at bedside. Tolerating tube feeds. Have brown bm. No signs of overt GI bleeding. Family wants to keep code status full code. They also do consent to peg placement but pt is not stable. Exam/Review of Systems Exam Vitals Vital Signs Date Temp Pulse Resp B/P (MAP) Pulse Ox O2 O2 Flow FiO2 Time Delivery Rate 02/11/19 76 21 105/61 100 BIPAP 06:00 (76) 02/11/19 30 05:51 02/11/19 93.5 04:30 02/10/19 2.0 08:29 Intake and Output 02/10/19 02/10/19 02/11/19 1515:00 23:00 07:00 IntakeIntake Total 810 ml 805 ml 757 ml OutputOutput Total 700 ml 755 ml 555 ml BalanceBalance 110 ml 50 ml 202 ml Constitutional: alert Psych: no complaints Eyes: PERRL Respiratory: congested cough, diminished breath sounds, labored breathing, other (diminished breath sounds on expiratory for bu lobes, diminished bilaterally on lower lobes.) Cardiovascular: regular rate and rhythm Gastrointestinal: soft, non-tender Results Result Diagram: 02/11/19 0440 02/11/19 0440 Results 24hrs Laboratory Tests Test 02/10/19 08:29 02/10/19 08:31 02/10/19 10:03 02/10/19 10:48 Blood Gas Blood arterial Specimen Source Arterial Blood 02/10/2019 8:50: Date Drawn 37 AM Arterial Blood 7.306 L pH (Temp corrected ) Arterial Blood 59.7 H pCO2 (Temp correct) Arterial Blood 97.8 H pO2 (Temp corrected ) Arterial Blood 29.1 H HCO3 Arterial Blood 2.1 Base Excess Arterial Blood 96.6 Oxygen Saturati on Mnauel Test ACCEPTAB Arterial Blood Left Radial Gas Puncture Site Arterial 0.8 Blood Carboxyhe moglobin Arterial Blood 0.5 Methemoglobin Blood Gas A-a 213.4 H O2 Differential Oxyhemoglobin 95.3 Percent Blood Gas 37.0 Temperature Blood Gas MASK - SIMPLE Modality FiO2 53.0 Blood Gas TM Notified Whom Blood Gas 02/10/2019 9:00: Notified Time 25 AM Bedside Glucose 152 134 Prothrombin 21.4 H Time Prothrombin 1.7 Time Ratio INR 1.85 International Normalized Rati o Test 02/10/19 13:25 02/10/19 17:05 02/10/19 21:24 02/11/19 01:10 Bedside Glucose 85 73 109 118 Test 02/11/19 04:40 02/11/19 04:57 02/11/19 05:35 02/11/19 06:00 White Blood 11.6 #H Count Red Blood Count 2.97 L Hemoglobin 8.6 L Hematocrit 27.9 L Mean 93.9 Corpuscular Volume Mean 29.0 Corpuscular Hemoglobin Mean 30.8 L Corpuscular Hemoglobin Conc ent Red Cell 21.2 H Distribution Width Platelet Count 121 L Mean Platelet 13.6 H Volume Immature 0.500 H Granulocytes % Neutrophils % 86.8 H Lymphocytes % 11.2 L Monocytes % 1.4 Eosinophils % 0.0 Basophils % 0.1 Nucleated Red 0.4 H Blood Cells % Immature 0.060 H Granulocytes # Neutrophils # 10.1 H Lymphocytes # 1.3 Monocytes # 0.2 L Eosinophils # 0.0 Basophils # 0.0 Nucleated Red 0.1 H Blood Cells # Sodium Level 150 H Potassium Level 5.1 Chloride Level 115 H Carbon Dioxide 29 Level Anion Gap 6 Blood Urea 75 H Nitrogen Creatinine 1.70 H Est Glomerular Filtrat Rate mL/min Glucose Level 112 Calcium Level 8.1 L Phosphorus 5.3 H Level Magnesium Level 2.1 Lab Scanned BLOOD TRANSFUSI Report ON Bedside Glucose 135 Blood Gas Blood Specimen arterial Source Arterial Blood 02/11/2019 5:28 Date Drawn :30 AM Arterial Blood 7.397 pH (Temp corrected ) Arterial Blood 45.9 H pCO2 (Temp correct) Arterial Blood 116.3 H pO2 (Temp corrected ) Arterial Blood 27.6 H HCO3 Arterial Blood 2.4 Base Excess Arterial Blood 98.0 Oxygen Saturati on Manuel Test ACCEPTAB Arterial Blood LB Gas Puncture Site Arterial 0.3 Blood Carboxyhe moglobin Arterial Blood 0.3 Methemoglobin Blood Gas A-a 116.1 H O2 Differential Oxyhemoglobin 97.4 Percent Blood Gas 37.0 Temperature Blood Gas 21 Actual Respiration Rat e Blood Gas MASK - BIPAP Modality FiO2 40.0 Blood Gas 18/8 IPAP/EPAP Ratio Blood Gas LMarv [facility] Notified Whom Blood Gas 02/11/2019 5:38 Notified Time :50 AM Medications Medication Current Medications Lactulose (Enulose) 20 gm DAILY PRN PO CONSTIPATION; Start 01/17/19 at 18:17 Acetaminophen (Tylenol Tab) 650 mg Q4H PRN PO PAIN Last administered on 01/23/19at 22:48; Admin Dose 650 MG; Start 01/17/19 at 18:17 Miscellaneous Information (Pending Santyl Order For Wound Care) This patient ramirez... PRN PRN XX WOUND CARE; Start 01/17/19 at 18:17 Albuterol/ Ipratropium (Duoneb) 3 ml Q2H RESP THERAPY PRN HHN SHORTNESS OF BREATH Last administered on 02/07/19at 05:45; Admin Dose 3 ML; Start 01/17/19 at 18:17 Bisacodyl (Dulcolax) 10 mg BID PRN PO CONSTIPATION; Start 01/17/19 at 18:17; Status Hold Folic Acid (Folic Acid) 1 mg DAILY PO Last administered on 02/10/19at 09:50; Admin Dose 1 MG; Start 01/17/19 at 18:17 Latanoprost (Xalatan) 1 drop HS BOTH EYES Last administered on 02/10/19at 20:56; Admin Dose 1 DROP; Start 01/17/19 at 18:17 Nitroglycerin (Nitroglycerin (Sl Tab) 0.4 Mg) 0.4 tab Q5M PRN SL CHEST PAIN; Start 01/17/19 at 18:17 Nystatin (Nystatin Powder) 1 applic BID TOP Last administered on 02/10/19at 21:29; Admin Dose 1 APPLIC; Start 01/17/19 at 18:17 IV Flush (NS 3 ml) 3 ml PER PROTOCOL IV ; Start 01/17/19 at 18:17 Miscellaneous Information 1 ea NOTE XX ; Start 01/17/19 at 18:17 Glucose (Glutose) 15 gm Q15M PRN PO DECREASED GLUCOSE; Start 01/17/19 at 18:17 Glucose (Glutose) 22.5 gm Q15M PRN PO DECREASED GLUCOSE; Start 01/17/19 at 18:17 Dextrose (D50w Syringe) 25 ml Q15M PRN IV DECREASED GLUCOSE Last administered on 02/05/19at 09:50; Admin Dose 25 ML; Start 01/17/19 at 18:17 Dextrose (D50w Syringe) 50 ml Q15M PRN IV DECREASED GLUCOSE; Start 01/17/19 at 18:17 Glucagon (Glucagen) 1 mg Q15M PRN IM DECREASED GLUCOSE; Start 01/17/19 at 18:17 Glucose (Glutose) 15 gm Q15M PRN BUCCAL DECREASED GLUCOSE; Start 01/17/19 at 18:17 Ascorbic Acid (Vitamin C) 250 mg DAILY PO Last administered on 02/10/19at 09:49; Admin Dose 250 MG; Start 01/17/19 at 18:17 Bisacodyl (Dulcolax Supp) 10 mg DAILY PRN OR CONSTIPATION; Start 01/17/19 at 18:17 Zinc Acetate/ Diphenhydramine (Benadryl 2% Cr) 1 applic Q6H PRN TOP ITCHING Last administered on 01/26/19at 07:54; Admin Dose 1 APPLIC; Start 01/19/19 at 16:37 IV Flush (NS 10 ml) 10 ml PRN PRN IV IV PROTOCOL; Start 01/20/19 at 14:30 Cyanocobalamin (Vitamin B12 Inj) 1,000 mcg Q7D IM Last administered on 02/10/19at 09:50; Admin Dose 1,000 MCG; Start 02/03/19 at 09:00 Metoprolol Tartrate (Lopressor) 5 mg Q4H PRN IV HR>110 Hold SBP<100; Start at 14:30 Vancomycin HCl (Vanco Iv Per Pharmacy) VANCOMYCIN PER PHARMACY PER PROTOCOL XX ; Start 01/27/19 at 12:00 Enoxaparin Sodium (Lovenox) 60 mg DAILY SC Last administered on 02/03/19at 08:06; Admin Dose 60 MG; Start 01/28/19 at 09:00; Status Hold Lorazepam (Ativan) 1 mg Q2 PRN IV SEIZURES Last administered on 02/09/19at 04:51; Admin Dose 1 MG; Start 01/27/19 at 14:00 Atorvastatin Calcium (Lipitor) 40 mg QHS NGT Last administered on 02/10/19at 20:54; Admin Dose 40 MG; Start 01/28/19 at 21:00 Docusate Sodium (Colace Liquid Cup) 100 mg BID NGT ; Start 01/27/19 at 22:00; Status Hold Terazosin HCl (Hytrin) 10 mg HS NGT Last administered on 02/09/19at 21:01; Admin Dose 10 MG; Start 01/28/19 at 21:00 Levetiracetam 100 ml @ 400 mls/hr Q12 IVPB Last administered on 02/10/19at 21:00; Admin Dose 400 MLS/HR; Start 01/28/19 at 09:00 Levothyroxine Sodium (Synthroid) 125 mcg BEFORE BREAKFAST NGT Last administered on 02/11/19 06:39; Admin Dose 125 MCG; Start 01/28/19 at 07:00 Ferrous Sulfate (Feosol Liquid Cup) 300 mg WITH MEALS GTB Last administered on 02/10/19 18:04; Admin Dose 300 MG; Start 01/28/19 at 11:30 Multivitamins (Multivitamin) 30 ml DAILY GTB Last administered on 02/10/19 09:49; Admin Dose 30 ML; Start 01/28/19 at 11:00 Diagnostic Test (Pha) (Accu-Chek) 1 ea Q4 XX Last administered on 02/11/19 05:00; Admin Dose 1 EA; Start 01/28/19 at 13:00 Nystatin/ Triamcinolone Acetonide (Mycolog Oint) 1 applic BID TOP Last administered on 02/10/19 21:28; Admin Dose 1 APPLIC; Start 01/28/19 at 22:30 Insulin Aspart (Novolog Insulin Pen) NOVOLOG *MILD* ALGORI... Q4 SC Last admin istered on 02/09/19 01:46; Admin Dose 1 UNIT; Start 01/29/19 at 05:00 Albuterol/ Ipratropium (Duoneb) 3 ml Q6HWA RESP THERAPY HHN Last administered on 02/10/19 19:48; Admin Dose 3 ML; Start 01/29/19 at 14:00 Epoetin Dae-epbx (RETACRIT(non-esrd)) 40,000 unit Mo@1700 SC Last administered on 02/10/19 18:06; Admin Dose 40,000 UNIT; Start 02/03/19 at 17:00 Insulin Glargine (Lantus) 10 units DAILY@2000 SC Last administered on 02/10/19 21:41; Admin Dose 10 UNITS; Start 01/31/19 at 20:00 Aztreonam 1 gm/ Dextrose 50 ml @ 100 mls/hr Q12 IVPB Last administered on 02/10/19 21:00; Admin Dose 100 MLS/HR; Start 02/03/19 at 21:00 Metoprolol Tartrate (Lopressor) 12.5 mg BID PO Last administered on 5/20/19at 09:50; Admin Dose 12.5 MG; Start 02/05/19 at 21:00 Eye Lubricant (Refresh Plus) 1 drop QID BOTH EYES Last administered on 02/10/19 20:58; Admin Dose 1 DROP; Start 02/06/19 at 09:00 Eye Lubricant (Akwa Oint) 1 applic HS LEFT EYE Last administered on 02/10/19 23:20; Admin Dose 1 APPLIC; Start 02/06/19 at 21:00 Multi-Ingredient Ointment (Aquaphor Oint 52.5 Gm) 1 applic BID TOP Last ad ministered on 02/10/19 21:06; Admin Dose 1 APPLIC; Start 02/06/19 at 22:40 Lansoprazole (Prevacid) 30 mg BID@0600,1800 NGT Last administered on 02/11/19 06:39; Admin Dose 30 MG; Start 02/07/19 at 18:00 Tobramycin Sulfate/Sodium Chloride (Nilesh Inhal) 300 mg BID RESP THERAPY NEB Last administered on 02/10/19 19:48; Admin Dose 300 MG; Start 02/08/19 at 09:00 Furosemide (Lasix) 20 mg BID DIURETICS IV Last administered on 02/11/19 06:39; Admin Dose 20 MG; Start 02/08/19 at 18:00 Morphine Sulfate (morphine) 0.5 mg Q4H PRN IV SEVERE PAIN LEVEL 7-10 Last administered on 02/10/19 18:18; Admin Dose 0.5 MG; Start 02/08/19 at 19:00 Vancomycin HCl 750 mg/Dextrose 250 ml @ 125 mls/hr Q72H IVPB Last administered on 02/09/19 22:56; Admin Dose 125 MLS/HR; Start 02/09/19 at 23:00 Lorazepam (Ativan) 1 mg Q6H PRN IV AGITATION Last administered on 02/10/19 20:50; Admin Dose 1 MG; Start 02/10/19 at 19:00 GISELLA VENTURA February 11, 2019 07:40
[2019-02-11] MEDS: ALBUTEROL/IPRATROPIUM (NEB) 3 ML AMP HHN SCH ×3 (08:18→20:16)
--- NOTE | 2019-02-11 08:48 | CONS ---
Consult Date/Type/Reason Admit Date/Time Jan 17, 2019 at 15:58 Initial Consult Date 01/18/19 Type of Consult Pulmonary Requesting Provider: IVAN AKHTAR MD Date/Time of Note DATE: 02/11/19 TIME: 08:47 Subjective Remains stable on bilevel ventilation. Agitated but no respiratory distress. Currently hemodynamically stable. Objective Vital Signs Date Temp Pulse Resp B/P (MAP) Pulse Ox O2 O2 Flow FiO2 Time Delivery Rate 02/11/19 70 95 30 08:14 02/11/19 105/61 BIPAP 06:00 (76) 02/11/19 93.5 04:30 02/10/19 2.0 08:29 Intake and Output 02/10/19 02/10/19 02/11/19 1515:00 23:00 07:00 IntakeIntake Total 810 ml 805 ml 757 ml OutputOutput Total 700 ml 755 ml 555 ml BalanceBalance 110 ml 50 ml 202 ml Exam GENERAL: Frail elderly gentleman comfortable at rest on bilevel ventilation. VITAL SIGNS: per chart NECK: Supple. No JVD or lymphadenopathy. CARDIAC EXAM: S1, S2. No added sounds or murmurs. CHEST: Diminished air entry both bases ABDOMEN: Soft, nontender. No guarding or rebound. EXTREMITIES: No cyanosis, clubbing edema +2 NEUROLOGIC: Generalized weakness Vent Setting Ventilator Support Mode: AC Fraction of Inspired Oxygen pe: 70 Positive End Expiratory Pressu: 5.0 Results/Medications Result Diagram: 02/11/19 0440 02/11/19 0440 Results 24 hrs Laboratory Tests Test 02/10/19 10:03 02/10/19 10:48 02/10/19 13:25 02/10/19 17:05 Bedside Glucose 134 85 73 Prothrombin Time 21.4 H Prothrombin Time 1.7 Ratio INR 1.85 International Normalized Ratio Test 02/10/19 21:24 02/11/19 01:10 02/11/19 04:40 02/11/19 04:57 Bedside Glucose 109 118 White Blood 11.6 #H Count Red Blood Count 2.97 L Hemoglobin 8.6 L Hematocrit 27.9 L Mean Corpuscular 93.9 Volume Mean Corpuscular 29.0 Hemoglobin Mean Corpuscular 30.8 L Hemoglobin June nt Red Cell 21.2 H Distribution Width Platelet Count 121 L Mean Platelet 13.6 H Volume Immature 0.500 H Granulocytes % Neutrophils % 86.8 H Lymphocytes % 11.2 L Monocytes % 1.4 Eosinophils % 0.0 Basophils % 0.1 Nucleated Red 0.4 H Blood Cells % Immature 0.060 H Granulocytes # Neutrophils # 10.1 H Lymphocytes # 1.3 Monocytes # 0.2 L Eosinophils # 0.0 Basophils # 0.0 Nucleated Red 0.1 H Blood Cells # Sodium Level 150 H Potassium Level 5.1 Chloride Level 115 H Carbon Dioxide 29 Level Anion Gap 6 Blood Urea 75 H Nitrogen Creatinine 1.70 H Est Glomerular Filtrat Rate mL/min Glucose Level 112 Calcium Level 8.1 L Phosphorus Level 5.3 H Magnesium Level 2.1 Lab Scanned BLOOD TRANSFUSI Report ON Test 02/11/19 05:35 02/11/19 06:00 Bedside Glucose 135 Blood Gas Blood arterial Specimen Source Arterial Blood 02/11/2019 5:28: Date Drawn 30 AM Arterial Blood 7.397 pH (Temp corrected) Arterial Blood 45.9 H pCO2 (Temp correct) Arterial Blood 116.3 H pO2 (Temp corrected) Arterial Blood 27.6 H HCO3 Arterial Blood 2.4 Base Excess Arterial Blood 98.0 Oxygen Saturatio n Manuel Test ACCEPTAB Arterial Blood LB Gas Puncture Site Arterial 0.3 Blood Carboxyhem oglobin Arterial Blood 0.3 Methemoglobin Blood Gas A-a O2 116.1 H Differential Oxyhemoglobin 97.4 Percent Blood Gas 37.0 Temperature Blood Gas Actual 21 Respiration Rate Blood Gas MASK - BIPAP Modality FiO2 40.0 Blood Gas 18/8 IPAP/EPAP Ratio Blood Gas LMarv [facility] Notified Whom Blood Gas 02/11/2019 5:38: Notified Time 50 AM Medications Current Medications Lactulose (Enulose) 20 gm DAILY PRN PO CONSTIPATION; Start 01/17/19 at 18:17 Acetaminophen (Tylenol Tab) 650 mg Q4H PRN PO PAIN Last administered on 01/23/19at 22:48; Admin Dose 650 MG; Start 01/17/19 at 18:17 Miscellaneous Information (Pending Santyl Order For Wound Care) This patient ramirez... PRN PRN XX WOUND CARE; Start 01/17/19 at 18:17 Albuterol/ Ipratropium (Duoneb) 3 ml Q2H RESP THERAPY PRN HHN SHORTNESS OF BREATH Last administered on 02/07/19at 05:45; Admin Dose 3 ML; Start 01/17/19 at 18:17 Bisacodyl (Dulcolax) 10 mg BID PRN PO CONSTIPATION; Start 01/17/19 at 18:17; Status Hold Folic Acid (Folic Acid) 1 mg DAILY PO Last administered on 02/10/19at 09:50; Admin Dose 1 MG; Start 01/17/19 at 18:17 Latanoprost (Xalatan) 1 drop HS BOTH EYES Last administered on 02/10/19at 20:56; Admin Dose 1 DROP; Start 01/17/19 at 18:17 Nitroglycerin (Nitroglycerin (Sl Tab) 0.4 Mg) 0.4 tab Q5M PRN SL CHEST PAIN; Start 01/17/19 at 18:17 Nystatin (Nystatin Powder) 1 applic BID TOP Last administered on 02/10/19at 21:29; Admin Dose 1 APPLIC; Start 01/17/19 at 18:17 IV Flush (NS 3 ml) 3 ml PER PROTOCOL IV ; Start 01/17/19 at 18:17 Miscellaneous Information 1 ea NOTE XX ; Start 01/17/19 at 18:17 Glucose (Glutose) 15 gm Q15M PRN PO DECREASED GLUCOSE; Start 01/17/19 at 18:17 Glucose (Glutose) 22.5 gm Q15M PRN PO DECREASED GLUCOSE; Start 01/17/19 at 18:17 Dextrose (D50w Syringe) 25 ml Q15M PRN IV DECREASED GLUCOSE Last administered on 02/05/19at 09:50; Admin Dose 25 ML; Start 01/17/19 at 18:17 Dextrose (D50w Syringe) 50 ml Q15M PRN IV DECREASED GLUCOSE; Start 01/17/19 at 18:17 Glucagon (Glucagen) 1 mg Q15M PRN IM DECREASED GLUCOSE; Start 01/17/19 at 18:17 Glucose (Glutose) 15 gm Q15M PRN BUCCAL DECREASED GLUCOSE; Start 01/17/19 at 18:17 Ascorbic Acid (Vitamin C) 250 mg DAILY PO Last administered on 02/10/19at 09:49; Admin Dose 250 MG; Start 01/17/19 at 18:17 Bisacodyl (Dulcolax Supp) 10 mg DAILY PRN DE CONSTIPATION; Start 01/17/19 at 18:17 Zinc Acetate/ Diphenhydramine (Benadryl 2% Cr) 1 applic Q6H PRN TOP ITCHING Last administered on 01/26/19 07:54; Admin Dose 1 APPLIC; Start 01/19/19 at 16:37 IV Flush (NS 10 ml) 10 ml PRN PRN IV IV PROTOCOL; Start 01/20/19 at 14:30 Cyanocobalamin (Vitamin B12 Inj) 1,000 mcg Q7D IM Last administered on 02/10/19 09:50; Admin Dose 1,000 MCG; Start 02/03/19 at 09:00 Metoprolol Tartrate (Lopressor) 5 mg Q4H PRN IV HR>110 Hold SBP<100; Start 01/26/19 at 14:30 Vancomycin HCl (Vanco Iv Per Pharmacy) VANCOMYCIN PER PHARMACY PER PROTOCOL XX ; Start 01/27/19 at 12:00 Enoxaparin Sodium (Lovenox) 60 mg DAILY SC Last administered on 02/03/19 08:06; Admin Dose 60 MG; Start 01/28/19 at 09:00; Status Hold Lorazepam (Ativan) 1 mg Q2 PRN IV SEIZURES Last administered on 02/09/19 04: 51; Admin Dose 1 MG; Start 01/27/19 at 14:00 Atorvastatin Calcium (Lipitor) 40 mg QHS NGT Last administered on 02/10/19at 20:54; Admin Dose 40 MG; Start 01/28/19 at 21:00 Docusate Sodium (Colace Liquid Cup) 100 mg BID NGT ; Start 01/27/19 at 22:00; Status Hold Terazosin HCl (Hytrin) 10 mg HS NGT Last administered on 02/09/19 21:01; Admin Dose 10 MG; Start 01/28/19 at 21:00 Levetiracetam 100 ml @ 400 mls/hr Q12 IVPB Last administered on 02/10/19 21:00; Admin Dose 400 MLS/HR; Start 01/28/19 at 09:00 Levothyroxine Sodium (Synthroid) 125 mcg BEFORE BREAKFAST NGT Last administered on 02/11/19 06:39; Admin Dose 125 MCG; Start 01/28/19 at 07:00 Ferrous Sulfate (Feosol Liquid Cup) 300 mg WITH MEALS GTB Last administered on 02/10/19 18:04; Admin Dose 300 MG; Start 01/28/19 at 11:30 Multivitamins (Multivitamin) 30 ml DAILY GTB Last administered on 02/10/19 09:49; Admin Dose 30 ML; Start 01/28/19 at 11:00 Diagnostic Test (Pha) (Accu-Chek) 1 ea Q4 XX Last administered on 02/11/19 05:00; Admin Dose 1 EA; Start 01/28/19 at 13:00 Nystatin/ Triamcinolone Acetonide (Mycolog Oint) 1 applic BID TOP Last administered on 02/10/19 21:28; Admin Dose 1 APPLIC; Start 01/28/19 at 22:30 Insulin Aspart (Novolog Insulin Pen) NOVOLOG *MILD* ALGORI... Q4 SC Last administered on 02/09/19 01:46; Admin Dose 1 UNIT; Start 01/29/19 at 05:00 Albuterol/ Ipratropium (Duoneb) 3 ml Q6HWA RESP THERAPY HHN Last administered on 02/11/19 08:18; Admin Dose 3 ML; Start 01/29/19 at 14:00 Epoetin Dae-epbx (RETACRIT(non-esrd)) 40,000 unit Mo@1700 SC Last administered on 02/10/19 18:06; Admin Dose 40,000 UNIT; Start 02/03/19 at 17:00 Insulin Glargine (Lantus) 10 units DAILY@2000 SC Last administered on 02/10/19 21:41; Admin Dose 10 UNITS; Start 01/31/19 at 20:00 Aztreonam 1 gm/ Dextrose 50 ml @ 100 mls/hr Q12 IVPB Last administered on 02/10/19 21:00; Admin Dose 100 MLS/HR; Start 02/03/19 at 21:00 Metoprolol Tartrate (Lopressor) 12.5 mg BID PO Last administered on 02/10/19 09:50; Admin Dose 12.5 MG; Start 02/05/19 at 21:00 Eye Lubricant (Refresh Plus) 1 drop QID BOTH EYES Last administered on 02/10/19 20:58; Admin Dose 1 DROP; Start 02/06/19 at 09:00 Eye Lubricant (Akwa Oint) 1 applic HS LEFT EYE Last administered on 02/10/19 23:20; Admin Dose 1 APPLIC; Start 02/06/19 at 21:00 Multi-Ingredient Ointment (Aquaphor Oint 52.5 Gm) 1 applic BID TOP Last administered on 02/10/19 21:06; Admin Dose 1 APPLIC; Start 02/06/19 at 22:40 Lansoprazole (Prevacid) 30 mg BID@0600,1800 NGT Last administered on 02/11/19 06:39; Admin Dose 30 MG; Start 02/07/19 at 18:00 Tobramycin Sulfate/Sodium Chloride (Nilesh Inhal) 300 mg BID RESP THERAPY NEB Last administered on 02/10/19 19:48; Admin Dose 300 MG; Start 02/08/19 at 09:00 Furosemide (Lasix) 20 mg BID DIURETICS IV Last administered on 02/11/19 06:39; Admin Dose 20 MG; Start 02/08/19 at 18:00 Morphine Sulfate (morphine) 0.5 mg Q4H PRN IV SEVERE PAIN LEVEL 7-10 Last administered on 02/10/19 18:18; Admin Dose 0.5 MG; Start 02/08/19 at 19:00 Vancomycin HCl 750 mg/Dextrose 250 ml @ 125 mls/hr Q72H IVPB Last administered on 02/09/19 22:56; Admin Dose 125 MLS/HR; Start 02/09/19 at 23:00 Lorazepam (Ativan) 1 mg Q6H PRN IV AGITATION Last administered on 02/10/19 20:50; Admin Dose 1 MG; Start 02/10/19 at 19:00 Assessment/Plan Hospital Course (Demo Recall) IMP: 1. s/p Acute hypoxemic respiratory failure likely secondary to combination of volume overload and pneumonia, now requiring bilevel ventilation again. 2. Encephalopathy underlying dementia versus toxic metabolic, appears to be slowly improving possibly secondary to elevated sodium. 3. Valvular heart disease 4. Severe dysphagia 5. Status post septic shock likely secondary to above, persistent leukocytosis. 6. Anemia, no active GI bleeding 7. Skin diffuse excoriating skin lesion unclear etiology not consistent with history of "red man" syndrome. or pemphigus. Likely drug reaction. 8. Anemia RECS: 1. Monitor respiratory status closely. 2. Continue broad-spectrum antibiotics 3. Infectious work-up as per ID 4. Monitor H&H 5. Palliative care consult appreciated 6. Electrolytes per nephrology. 7. Trial off bilevel ventilation, aspiration precautions elevation of head of bed Critical care time 40 minutes. Overall prognosis remains guarded DIANA MCRAE MD, [facility] February 11, 2019 08:48
[2019-02-11] MEDS: ASCORBIC ACID 250 MG TAB PO SCH (09:01)
[2019-02-11] MEDS: FOLIC ACID 1 MG TAB PO SCH (09:02)
[2019-02-11] MEDS: MULTIVITAMINS 30 ML CUP GTB SCH (09:02)
[2019-02-11] MEDS: FERROUS SULFATE 60 MG/ML 5ML CUP GTB SCH ×3 (09:02→17:55)
[2019-02-11] MEDS: METOPROLOL 25 MG TAB PO SCH ×2 (09:02→20:57)
[2019-02-11] MEDS: BALSAM PERU/CASTOR OIL 60 GM TUBE TOP SCH ×2 (09:03→20:48)
[2019-02-11] MEDS: AQUAPHOR 52.5 GM OINT TOP SCH ×2 (09:03→20:48)
[2019-02-11] MEDS: LEVETIRACETAM 500 MG (PMX) 100 ML IVPB SCH (09:03)
[2019-02-11] MEDS: AZTREONAM 1 GM in DEXTROSE 5% 50 ML IVPB SCH ×2 (09:03→20:51)
[2019-02-11] MEDS: NYSTATIN/TRIAMCINOLONE 15 GM OINT TOP SCH ×2 (09:04→20:48)
[2019-02-11] MEDS: NYSTATIN 30 GM POWDER BTL TOP SCH ×2 (09:04→20:49)
[2019-02-11] MEDS: CARBOXYMETHYLCELLULOSE 0.5% 0.4 ML OPH BOTH EYES SCH ×4 (09:06→20:58)
--- NOTE | 2019-02-11 09:35 | PN ---
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 Septic shock now on pressors likely secondary to pneumonia on levophed resolved # Hypothermia ? sepsis #. 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 Chronic renal failure likely secondary to sepsis, improved, normal creatinine #. Hypertension.currently hypotensive resolved # Impending respiratory failure # Anasarca # Hyperlipidemia. # Hypothyroidism. # Bilateral groin cellulitis more likely associated with mateus, patches in groin and axilla bilaterally. skin peeling # History of rheumatoid arthritis with joint deformities. # Diabetes type 2. # Hx of CABGx2, carotid stent #. Peripheral vascular disease. #. Chronic a.fib, now on lovenox #. right arm edema # Neoplasm per CT abdomen. 4.3 cm cystic lesion along the pancreas body, enlarged since 10/10/2012 (previously 2.4 cm). 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 # Possible allergic skin reaction ? drug present since admission> improved s/p biopsy/ Amrik Betancourt > limit results solar keratosis # hypoThermia #[facility] [place] to [place] improving # metabolic alkalosis Plan - Na 150>feeding? change diabetesource> streets and buildings decorator consult - FWF 250 Q4 -hold off ativan - nebs, BIPAP - GI consult> hold lovenox due to possible bleeding, iv ppi - on iv lasix 20 BID - cw aztreonam/vanco/tobra IN d5w -c w keppra - cw lovenox 60 for afib> held today due to anemia ? ASA - GI and DVT prophylaxsis -oncology consul dr Lorenzo aware:he said Ca 19-9 is negative indicating unlikely malignant. This may be a pseudocyst or a precancerous pancreatic lesion. It has been growing in size but patient is asymptomatic. EUS with biopsy is recommended and can either be done inpatient or outpatient setting. The patient at this time is unlikely a candidate for a Whipple surgery however. -skin care - s/p skin biopsy pending results solar elastosis > will kemar derm input ,called office again Result Diagram: 02/11/19 0440 02/11/19 0440 Results 24hrs Laboratory Tests Test 02/10/19 10:03 02/10/19 10:48 02/10/19 13:25 02/10/19 17:05 Bedside Glucose 134 85 73 Prothrombin Time 21.4 H Prothrombin Time 1.7 Ratio INR 1.85 International Normalized Ratio Test 02/10/19 21:24 02/11/19 01:10 02/11/19 04:40 02/11/19 04:57 Bedside Glucose 109 118 White Blood 11.6 #H Count Red Blood Count 2.97 L Hemoglobin 8.6 L Hematocrit 27.9 L Mean Corpuscular 93.9 Volume Mean Corpuscular 29.0 Hemoglobin Mean Corpuscular 30.8 L Hemoglobin June nt Red Cell 21.2 H Distribution Width Platelet Count 121 L Mean Platelet 13.6 H Volume Immature 0.500 H Granulocytes % Neutrophils % 86.8 H Lymphocytes % 11.2 L Monocytes % 1.4 Eosinophils % 0.0 Basophils % 0.1 Nucleated Red 0.4 H Blood Cells % Immature 0.060 H Granulocytes # Neutrophils # 10.1 H Lymphocytes # 1.3 Monocytes # 0.2 L Eosinophils # 0.0 Basophils # 0.0 Nucleated Red 0.1 H Blood Cells # Sodium Level 150 H Potassium Level 5.1 Chloride Level 115 H Carbon Dioxide 29 Level Anion Gap 6 Blood Urea 75 H Nitrogen Creatinine 1.70 H Est Glomerular Filtrat Rate mL/min Glucose Level 112 Calcium Level 8.1 L Phosphorus Level 5.3 H Magnesium Level 2.1 Lab Scanned BLOOD TRANSFUSI Report ON Test 02/11/19 05:35 02/11/19 06:00 02/11/19 08:59 Bedside Glucose 135 141 Blood Gas Blood arterial Specimen Source Arterial Blood 02/11/2019 5:28: Date Drawn 30 AM Arterial Blood 7.397 pH (Temp corrected) Arterial Blood 45.9 H pCO2 (Temp correct) Arterial Blood 116.3 H pO2 (Temp corrected) Arterial Blood 27.6 H HCO3 Arterial Blood 2.4 Base Excess Arterial Blood 98.0 Oxygen Saturatio n Manuel Test ACCEPTAB Arterial Blood LB Gas Puncture Site Arterial 0.3 Blood Carboxyhem oglobin Arterial Blood 0.3 Methemoglobin Blood Gas A-a O2 116.1 H Differential Oxyhemoglobin 97.4 Percent Blood Gas 37.0 Temperature Blood Gas Actual 21 Respiration Rate Blood Gas MASK - BIPAP Modality FiO2 40.0 Blood Gas 18/8 IPAP/EPAP Ratio Blood Gas LMarv [facility] [employer] [facility] Notified Whom Blood Gas 02/11/2019 5:38: Notified Time 50 AM Subjective 24 Hr Interval Summary Free Text/Dictation pt was given ativan yesterday for agitation Na 150 on diabetasource breathing better today Exam/Review of Systems Exam Vitals Vital Signs Date Temp Pulse Resp B/P (MAP) Pulse Ox O2 O2 Flow FiO2 Time Delivery Rate 02/11/19 70 95 30 08:14 02/11/19 21 105/61 BIPAP 06:00 (76) 02/11/19 93.5 04:30 02/10/19 2.0 08:29 Intake and Output 02/10/19 02/10/19 02/11/19 1515:00 23:00 07:00 IntakeIntake Total 810 ml 805 ml 757 ml OutputOutput Total 700 ml 755 ml 555 ml BalanceBalance 110 ml 50 ml 202 ml Exam NG tube Constitutional: alert, frail, opens eyes, tries to follow commands, resists response Head: normocephalic Neck: supple Cardiovascular: regular rate Dec breath sounds bases Gastrointestinal: soft skin peeling +edema rt arm>left arm Results Results 24hrs Laboratory Tests Test 02/10/19 10:03 02/10/19 10:48 02/10/19 13:25 02/10/19 17:05 Bedside Glucose 134 85 73 Prothrombin Time 21.4 H Prothrombin Time 1.7 Ratio INR 1.85 International Normalized Ratio Test 02/10/19 21:24 02/11/19 01:10 02/11/19 04:40 02/11/19 04:57 Bedside Glucose 109 118 White Blood 11.6 #H Count Red Blood Count 2.97 L Hemoglobin 8.6 L Hematocrit 27.9 L Mean Corpuscular 93.9 Volume Mean Corpuscular 29.0 Hemoglobin Mean Corpuscular 30.8 L Hemoglobin June nt Red Cell 21.2 H Distribution Width Platelet Count 121 L Mean Platelet 13.6 H Volume Immature 0.500 H Granulocytes % Neutrophils % 86.8 H Lymphocytes % 11.2 L Monocytes % 1.4 Eosinophils % 0.0 Basophils % 0.1 Nucleated Red 0.4 H Blood Cells % Immature 0.060 H Granulocytes # Neutrophils # 10.1 H Lymphocytes # 1.3 Monocytes # 0.2 L Eosinophils # 0.0 Basophils # 0.0 Nucleated Red 0.1 H Blood Cells # Sodium Level 150 H Potassium Level 5.1 Chloride Level 115 H Carbon Dioxide 29 Level Anion Gap 6 Blood Urea 75 H Nitrogen Creatinine 1.70 H Est Glomerular Filtrat Rate mL/min Glucose Level 112 Calcium Level 8.1 L Phosphorus Level 5.3 H Magnesium Level 2.1 Lab Scanned BLOOD TRANSFUSI Report ON Test 02/11/19 05:35 02/11/19 06:00 02/11/19 08:59 Bedside Glucose 135 141 Blood Gas Blood arterial Specimen Source Arterial Blood 02/11/2019 5:28: Date Drawn 30 AM Arterial Blood 7.397 pH (Temp corrected) Arterial Blood 45.9 H pCO2 (Temp correct) Arterial Blood 116.3 H pO2 (Temp corrected) Arterial Blood 27.6 H HCO3 Arterial Blood 2.4 Base Excess Arterial Blood 98.0 Oxygen Saturatio n Manuel Test ACCEPTAB Arterial Blood LB Gas Puncture Site Arterial 0.3 Blood Carboxyhem oglobin Arterial Blood 0.3 Methemoglobin Blood Gas A-a O2 116.1 H Differential Oxyhemoglobin 97.4 Percent Blood Gas 37.0 Temperature Blood Gas Actual 21 Respiration Rate Blood Gas MASK - BIPAP Modality FiO2 40.0 Blood Gas 18/8 IPAP/EPAP Ratio Blood Gas LMarv [facility] Notified Whom Blood Gas 02/11/2019 5:38: Notified Time 50 AM Medications Medication Current Medications Lactulose (Enulose) 20 gm DAILY PRN PO CONSTIPATION; Start 01/17/19 at 18:17 Acetaminophen (Tylenol Tab) 650 mg Q4H PRN PO PAIN Last administered on 01/23/19at 22:48; Admin Dose 650 MG; Start 01/17/19 at 18:17 Miscellaneous Information (Pending Santyl Order For Wound Care) This patient ramirez... PRN PRN XX WOUND CARE; Start 01/17/19 at 18:17 Albuterol/ Ipratropium (Duoneb) 3 ml Q2H RESP THERAPY PRN HHN SHORTNESS OF BREATH Last administered on 02/07/19at 05:45; Admin Dose 3 ML; Start 01/17/19 at 18:17 Bisacodyl (Dulcolax) 10 mg BID PRN PO CONSTIPATION; Start 01/17/19 at 18:17; Status Hold Folic Acid (Folic Acid) 1 mg DAILY PO Last administered on 02/11/19at 09:02; Admin Dose 1 MG; Start 01/17/19 at 18:17 Latanoprost (Xalatan) 1 drop HS BOTH EYES Last administered on 02/10/19at 20:56; Admin Dose 1 DROP; Start 01/17/19 at 18:17 Nitroglycerin (Nitroglycerin (Sl Tab) 0.4 Mg) 0.4 tab Q5M PRN SL CHEST PAIN; Start 01/17/19 at 18:17 Nystatin (Nystatin Powder) 1 applic BID TOP Last administered on 02/11/19at 09:04; Admin Dose 1 APPLIC; Start 01/17/19 at 18:17 IV Flush (NS 3 ml) 3 ml PER PROTOCOL IV ; Start 01/17/19 at 18:17 Miscellaneous Information 1 ea NOTE XX ; Start 01/17/19 at 18:17 Glucose (Glutose) 15 gm Q15M PRN PO DECREASED GLUCOSE; Start 01/17/19 at 18:17 Glucose (Glutose) 22.5 gm Q15M PRN PO DECREASED GLUCOSE; Start 01/17/19 at 18:17 Dextrose (D50w Syringe) 25 ml Q15M PRN IV DECREASED GLUCOSE Last administered on 02/05/19at 09:50; Admin Dose 25 ML; Start 01/17/19 at 18:17 Dextrose (D50w Syringe) 50 ml Q15M PRN IV DECREASED GLUCOSE; Start 01/17/19 at 18:17 Glucagon (Glucagen) 1 mg Q15M PRN IM DECREASED GLUCOSE; Start 01/17/19 at 18:17 Glucose (Glutose) 15 gm Q15M PRN BUCCAL DECREASED GLUCOSE; Start 01/17/19 at 18:17 Ascorbic Acid (Vitamin C) 250 mg DAILY PO Last administered on 02/11/19at 09:01; Admin Dose 250 MG; Start 01/17/19 at 18:17 Bisacodyl (Dulcolax Supp) 10 mg DAILY PRN WI CONSTIPATION; Start 01/17/19 at 18:17 Zinc Acetate/ Diphenhydramine (Benadryl 2% Cr) 1 applic Q6H PRN TOP ITCHING Last administered on 01/26/19 07:54; Admin Dose 1 APPLIC; Start 01/19/19 at 16:37 IV Flush (NS 10 ml) 10 ml PRN PRN IV IV PROTOCOL; Start 01/20/19 at 14:30 Cyanocobalamin (Vitamin B12 Inj) 1,000 mcg Q7D IM Last administered on 02/10at 09:50; Admin Dose 1,000 MCG; Start 02/03/19 at 09:00 Metoprolol Tartrate (Lopressor) 5 mg Q4H PRN IV HR>110 Hold SBP<100; Start 01/26/19 at 14:30 Vancomycin HCl (Vanco Iv Per Pharmacy) VANCOMYCIN PER PHARMACY PER PROTOCOL XX ; Start 01/27/19 at 12:00 Enoxaparin Sodium (Lovenox) 60 mg DAILY SC Last administered on 02/03/19at 08:06; Admin Dose 60 MG; Start 01/28/19 at 09:00; Status Hold Atorvastatin Calcium (Lipitor) 40 mg QHS NGT Last administered on 02/10/19 20:54; Admin Dose 40 MG; Start 01/28/19 at 21:00 Docusate Sodium (Colace Liquid Cup) 100 mg BID NGT ; Start 01/27/19 at 22:00; Status Hold Terazosin HCl (Hytrin) 10 mg HS NGT Last administered on 02/09/19at 21:01; Admin Dose 10 MG; Start 01/28/19 at 21:00 Levothyroxine Sodium (Synthroid) 125 mcg BEFORE BREAKFAST NGT Last adminis tered on 02/11/19at 06:39; Admin Dose 125 MCG; Start 01/28/19 at 07:00 Ferrous Sulfate (Feosol Liquid Cup) 300 mg WITH MEALS GTB Last administered on 02/11/19 09:02; Admin Dose 300 MG; Start 01/28/19 at 11:30 Multivitamins (Multivitamin) 30 ml DAILY GTB Last administered on 02/11/19 09:02; Admin Dose 30 ML; Start 01/28/19 at 11:00 Diagnostic Test (Pha) (Accu-Chek) 1 ea Q4 XX Last administered on 02/11/19 09:06; Admin Dose 1 EA; Start 01/28/19 at 13:00 Nystatin/ Triamcinolone Acetonide (Mycolog Oint) 1 applic BID TOP Last administered on 02/11/19 09:04; Admin Dose 1 APPLIC; Start 01/28/19 at 22:30 Insulin Aspart (Novolog Insulin Pen) NOVOLOG *MILD* ALGORI... Q4 SC Last administered on 02/11/19 09:16; Admin Dose 1 UNIT; Start 01/29/19 at 05:00 Albuterol/ Ipratropium (Duoneb) 3 ml Q6HWA RESP THERAPY HHN Last administered on 02/11/19 08:18; Admin Dose 3 ML; Start 01/29/19 at 14:00 Epoetin Dae-epbx (RETACRIT(non-esrd)) 40,000 unit Mo@1700 SC Last administered on 02/10/19 18:06; Admin Dose 40,000 UNIT; Start 02/03/19 at 17:00 Insulin Glargine (Lantus) 10 units DAILY@2000 SC Last administered on 02/10/19 21:41; Admin Dose 10 UNITS; Start 01/31/19 at 20:00 Aztreonam 1 gm/ Dextrose 50 ml @ 100 mls/hr Q12 IVPB Last administered on 02/11/19 09:03; Admin Dose 100 MLS/HR; Start 02/03/19 at 21:00 Metoprolol Tartrate (Lopressor) 12.5 mg BID PO Last administered on 02/11/19 09:02; Admin Dose 12.5 MG; Start 02/05/19 at 21:00 Eye Lubricant (Refresh Plus) 1 drop QID BOTH EYES Last administered on 02/11/19 09:06; Admin Dose 1 DROP; Start 02/06/19 at 09:00 Eye Lubricant (Akwa Oint) 1 applic HS LEFT EYE Last administered on 02/10/19 23:20; Admin Dose 1 APPLIC; Start 02/06/19 at 21:00 Multi-Ingredient Ointment (Aquaphor Oint 52.5 Gm) 1 applic BID TOP Last administered on 02/11/19 09:03; Admin Dose 1 APPLIC; Start 02/06/19 at 22:40 Lansoprazole (Prevacid) 30 mg BID@0600,1800 NGT Last administered on 02/11/19 06:39; Admin Dose 30 MG; Start 02/07/19 at 18:00 Tobramycin Sulfate/Sodium Chloride (Nilesh Inhal) 300 mg BID RESP THERAPY NEB Last administered on 02/10/19 19:48; Admin Dose 300 MG; Start 02/08/19 at 09:00 Furosemide (Lasix) 20 mg BID DIURETICS IV Last administered on 02/11/19 06:39; Admin Dose 20 MG; Start 02/08/19 at 18:00 Morphine Sulfate (morphine) 0.5 mg Q4H PRN IV SEVERE PAIN LEVEL 7-10 Last administered on 02/10/19 18:18; Admin Dose 0.5 MG; Start 02/08/19 at 19:00 Vancomycin HCl 750 mg/Dextrose 250 ml @ 125 mls/hr Q72H IVPB Last administered on 02/09/19 22:56; Admin Dose 125 MLS/HR; Start 02/09/19 at 23:00 IVAN AKHTAR MD February 11, 2019 09:35
[2019-02-11] MEDS: TOBRAMYCIN/0.25NS 300 MG/5 ML INHAL NEB SCH ×2 (09:52→20:16)
--- NOTE | 2019-02-11 10:12 | CONS ---
Assessment/Plan Assessment/Plan Hospital Course 88 yo M with multiple comorbidities who initially presented for evaluation of hiccups. He was noted to become acutely altered... for which neurology is consulted. He has been transferred to the ICU on several occasions due to ams in the context of respiratory distress and ? seizures.. The clinical picture suggests an acute toxic-metabolic encephalopathy.. Meningoencephalitis is, though, not entirely excluded. MRI brain is without acute ischemia, though notable for chronic infarcts. EEG was without ongoing epileptiform activity LP for CSF valuation was declined by medical decision makers. P: OK to Cont Keppra 500 BID for now Ativan IV PRN prolonged seizure (> 5 min) Agree w/ ASA/Lipitor daily pending the above Limit sedating medications where possible Other medical management per primary Will follow Consultation Date/Type/Reason Admit Date/Time Jan 17, 2019 at 15:58 Type of Consult Neurology Reason for Consultation ams Requesting Provider: IVAN AKHTAR MD Date/Time of Note DATE: 02/11/19 TIME: 10:10 24 HR Interval Summary Free Text/Dictation Tx back to icu for respiratory distress Exam Vital Signs Vitals Vital Signs Date Temp Pulse Resp B/P (MAP) Pulse Ox O2 O2 Flow FiO2 Time Delivery Rate 02/11/19 87 22 99 Nasal 5.0 09:56 Cannula 02/11/19 30 08:14 02/11/19 105/61 06:00 (76) 02/11/19 93.5 04:30 Intake and Output 02/10/19 02/10/19 02/11/19 1515:00 23:00 07:00 IntakeIntake Total 810 ml 805 ml 757 ml OutputOutput Total 700 ml 755 ml 555 ml BalanceBalance 110 ml 50 ml 202 ml ANGE RAMIREZ February 11, 2019 10:12
--- NOTE | 2019-02-11 13:30 | CONS ---
Assessment/Plan Assessment/Plan Hospital Course (Demo Recall) 88 yo male with multiple medical problems including DM, CRF, RA, PVD and chronic afib on Eliquis who presented to [facility] 01/05/19 with severe normocytic anemia and Hg ~7. 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 # Anemia-normocytic -Hg > 7. currently stable -Multifactorial at this time due to iron deficiency, vitamin b12 deficiency and also likely anemia of chronic kidney disease and inflammation. Elevated Methylmalonic acid level noted -s/p IV iron -continue vitamin b12 weekly as vitamin b12 was low normal and methylmalonic acid was elevated. Continue folate as well. -No evidence of hemolysis at this time. -Transfuse to keep Hgb > 7. 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 -This may be a pseudocyst or a precancerous pancreatic lesion. -It has been growing in size but patient is asymptomatic. EUS with biopsy is recommended and can either be done inpatient or outpatient setting. -The patient at this time is unlikely a candidate for a whipple surgery however. Thank you to Dr. Alatorre for allowing [facility] to participate in the care of this patient. A total of 40 minutes was spent in consultation with this patient and all his questions were answered. Consultation Date/Type/Reason Admit Date/Time Jan 17, 2019 at 15:58 Initial Consult Date 01/18/19 Type of Consult hematology Reason for Consultation anemia Requesting Provider: IVAN AKHTAR MD Date/Time of Note DATE: 02/11/19 TIME: 13:29 24 HR Interval Summary Free Text/Dictation had episode of acute altered mental status. pt was placed on BIPAP and ABG corrected. not on pressors. Exam/Review of Systems Exam Vitals Vital Signs Date Temp Pulse Resp B/P (MAP) Pulse Ox O2 O2 Flow FiO2 Time Delivery Rate 02/11/19 71 12:00 02/11/19 96.4 30 101/36 98 Nasal 12:00 (57) Cannula 02/11/19 5.0 09:56 02/11/19 30 08:14 Intake and Output 02/10/19 02/10/19 02/11/19 1515:00 23:00 07:00 IntakeIntake Total 810 ml 805 ml 757 ml OutputOutput Total 700 ml 755 ml 555 ml BalanceBalance 110 ml 50 ml 202 ml Constitutional: alert Psych: no complaints, nl mood/affect Head: normocephalic Eyes: nl conjunctiva ENMT: nl external ears & nose Neck: supple Respiratory: clear to auscultation Cardiovascular: regular rate and rhythm Gastrointestinal: soft Musculoskeletal: nl extremities to inspection Results Result Diagram: 02/11/19 0440 02/11/19 0440 Results 24hrs Laboratory Tests Test 02/10/19 17:05 02/10/19 21:24 02/11/19 01:10 02/11/19 04:40 Bedside Glucose 73 109 118 White Blood 11.6 #H Count Red Blood Count 2.97 L Hemoglobin 8.6 L Hematocrit 27.9 L Mean Corpuscular 93.9 Volume Mean Corpuscular 29.0 Hemoglobin Mean Corpuscular 30.8 L Hemoglobin June nt Red Cell 21.2 H Distribution Width Platelet Count 121 L Mean Platelet 13.6 H Volume Immature 0.500 H Granulocytes % Neutrophils % 86.8 H Lymphocytes % 11.2 L Monocytes % 1.4 Eosinophils % 0.0 Basophils % 0.1 Nucleated Red 0.4 H Blood Cells % Immature 0.060 H Granulocytes # Neutrophils # 10.1 H Lymphocytes # 1.3 Monocytes # 0.2 L Eosinophils # 0.0 Basophils # 0.0 Nucleated Red 0.1 H Blood Cells # Sodium Level 150 H Potassium Level 5.1 Chloride Level 115 H Carbon Dioxide 29 Level Anion Gap 6 Blood Urea 75 H Nitrogen Creatinine 1.70 H Est Glomerular Filtrat Rate mL/min Glucose Level 112 Calcium Level 8.1 L Phosphorus Level 5.3 H Magnesium Level 2.1 Test 02/11/19 04:57 02/11/19 05:35 02/11/19 06:00 02/11/19 08:59 Lab Scanned BLOOD TRANSFUSI Report ON Bedside Glucose 135 141 Blood Gas Blood arterial Specimen Source Arterial Blood 02/11/2019 5:28: Date Drawn 30 AM Arterial Blood 7.397 pH (Temp corrected) Arterial Blood 45.9 H pCO2 (Temp correct) Arterial Blood 116.3 H pO2 (Temp corrected) Arterial Blood 27.6 H HCO3 Arterial Blood 2.4 Base Excess Arterial Blood 98.0 Oxygen Saturatio n Manuel Test ACCEPTAB Arterial Blood LB Gas Puncture Site Arterial 0.3 Blood Carboxyhem oglobin Arterial Blood 0.3 Methemoglobin Blood Gas A-a O2 116.1 H Differential Oxyhemoglobin 97.4 Percent Blood Gas 37.0 Temperature Blood Gas Actual 21 Respiration Rate Blood Gas MASK - BIPAP Modality FiO2 40.0 Blood Gas 18/8 IPAP/EPAP Ratio Blood Gas LMarv [facility] Notified Whom Blood Gas 02/11/2019 5:38: Notified Time 50 AM Test 02/11/19 12:56 Bedside Glucose 117 Medications Medication Current Medications Lactulose (Enulose) 20 gm DAILY PRN PO CONSTIPATION; Start 01/17/19 at 18:17 Acetaminophen (Tylenol Tab) 650 mg Q4H PRN PO PAIN Last administered on 01/23/19 22:48; Admin Dose 650 MG; Start 01/17/19 at 18:17 Miscellaneous Information (Pending [facility] Order For Wound Care) This patient ramirez... PRN PRN XX WOUND CARE; Start 01/17/19 at 18:17 Albuterol/ Ipratropium (Duoneb) 3 ml Q2H RESP THERAPY PRN HHN SHORTNESS OF BREATH Last administered on 02/07/19at 05:45; Admin Dose 3 ML; Start 01/17/19 at 18:17 Bisacodyl (Dulcolax) 10 mg BID PRN PO CONSTIPATION; Start 01/17/19 at 18:17; Status Hold Folic Acid (Folic Acid) 1 mg DAILY PO Last administered on 02/11/19 09:02; Admin Dose 1 MG; Start 01/17/19 at 18:17 Latanoprost (Xalatan) 1 drop HS BOTH EYES Last administered on 02/10/19 20:56; Admin Dose 1 DROP; Start 01/17/19 at 18:17 Nitroglycerin (Nitroglycerin (Sl Tab) 0.4 Mg) 0.4 tab Q5M PRN SL CHEST PAIN; Start 01/17/19 at 18:17 Nystatin (Nystatin Powder) 1 applic BID TOP Last administered on 02/11/19 09:04; Admin Dose 1 APPLIC; Start 01/17/19 at 18:17 IV Flush (NS 3 ml) 3 ml PER PROTOCOL IV ; Start 01/17/19 at 18:17 Miscellaneous Information 1 ea NOTE XX ; Start 01/17/19 at 18:17 Glucose (Glutose) 15 gm Q15M PRN PO DECREASED GLUCOSE; Start 01/17/19 at 18:17 Glucose (Glutose) 22.5 gm Q15M PRN PO DECREASED GLUCOSE; Start 01/17/19 at 18:17 Dextrose (D50w Syringe) 25 ml Q15M PRN IV DECREASED GLUCOSE Last administered on 02/05/19at 09:50; Admin Dose 25 ML; Start 01/17/19 at 18:17 Dextrose (D50w Syringe) 50 ml Q15M PRN IV DECREASED GLUCOSE; Start 01/17/19 at 18:17 Glucagon (Glucagen) 1 mg Q15M PRN IM DECREASED GLUCOSE; Start 01/17/19 at 18:17 Glucose (Glutose) 15 gm Q15M PRN BUCCAL DECREASED GLUCOSE; Start 01/17/19 at 18:17 Ascorbic Acid (Vitamin C) 250 mg DAILY PO Last administered on 02/11/19at 09:01; Admin Dose 250 MG; Start 01/17/19 at 18:17 Bisacodyl (Dulcolax Supp) 10 mg DAILY PRN [place] CONSTIPATION; Start 01/17/19 at 18:17 Zinc Acetate/ Diphenhydramine (Benadryl 2% Cr) 1 applic Q6H PRN TOP ITCHING Last administered on 01/26/19at 07:54; Admin Dose 1 APPLIC; Start 01/19/19 at 16:37 IV Flush (NS 10 ml) 10 ml PRN PRN IV IV PROTOCOL; Start 01/20/19 at 14:30 Cyanocobalamin (Vitamin B12 Inj) 1,000 mcg Q7D IM Last administered on 02/10/19at 09:50; Admin Dose 1,000 MCG; Start 02/03/19 at 09:00 Metoprolol Tartrate (Lopressor) 5 mg Q4H PRN IV HR>110 Hold SBP<100; Start 01/26/19 at 14:30 Vancomycin HCl (Vanco Iv Per Pharmacy) VANCOMYCIN PER PHARMACY PER PROTOCOL XX ; Start 01/27/19 at 12:00 Enoxaparin Sodium (Lovenox) 60 mg DAILY SC Last administered on 02/03/19 08:06; Admin Dose 60 MG; Start 01/28/19 at 09:00; Status Hold Atorvastatin Calcium (Lipitor) 40 mg QHS NGT Last administered on 02/10/19 20:54; Admin Dose 40 MG; Start 01/28/19 at 21:00 Docusate Sodium (Colace Liquid Cup) 100 mg BID NGT ; Start 01/27/19 at 22:00; Status Hold Terazosin HCl (Hytrin) 10 mg HS NGT Last administered on 02/09/19 21:01; Admin Dose 10 MG; Start 01/28/19 at 21:00 Levothyroxine Sodium (Synthroid) 125 mcg BEFORE BREAKFAST NGT Last administered on 02/11/19 06:39; Admin Dose 125 MCG; Start 01/28/19 at 07:00 Ferrous Sulfate (Feosol Liquid Cup) 300 mg WITH MEALS GTB Last administered on 02/11/19 09:02; Admin Dose 300 MG; Start 01/28/19 at 11:30 Multivitamins (Multivitamin) 30 ml DAILY GTB Last administered on 02/11/19 09:02; Admin Dose 30 ML; Start 01/28/19 at 11:00 Diagnostic Test (Pha) (Accu-Chek) 1 ea Q4 XX Last administered on 02/11/19 09:06; Admin Dose 1 EA; Start 01/28/19 at 13:00 Nystatin/ Triamcinolone Acetonide (Mycolog Oint) 1 applic BID TOP Last administered on 02/11/19 09:04; Admin Dose 1 APPLIC; Start 01/28/19 at 22:30 Insulin Aspart (Novolog Insulin Pen) NOVOLOG *MILD* ALGORI... Q4 SC Last administered on 02/11/19 09:16; Admin Dose 1 UNIT; Start 01/29/19 at 05:00 Albuterol/ Ipratropium (Duoneb) 3 ml Q6HWA RESP THERAPY HHN Last administered on 02/11/19 08:18; Admin Dose 3 ML; Start 01/29/19 at 14:00 Epoetin Dae-epbx (RETACRIT(non-esrd)) 40,000 unit Mo@1700 SC Last administered on 02/10/19 18:06; Admin Dose 40,000 UNIT; Start 02/03/19 at 17:00 Insulin Glargine (Lantus) 10 units DAILY@2000 SC Last administered on 02/10/19 21:41; Admin Dose 10 UNITS; Start 01/31/19 at 20:00 Aztreonam 1 gm/ Dextrose 50 ml @ 100 mls/hr Q12 IVPB Last administered on 02/11/19 09:03; Admin Dose 100 MLS/HR; Start 02/03/19 at 21:00 Metoprolol Tartrate (Lopressor) 12.5 mg BID PO Last administered on 02/11/19 09:02; Admin Dose 12.5 MG; Start 02/05/19 at 21:00 Eye Lubricant (Refresh Plus) 1 drop QID BOTH EYES Last administered on 02/11/19 09:06; Admin Dose 1 DROP; Start 02/06/19 at 09:00 Eye Lubricant (Akwa Oint) 1 applic HS LEFT EYE Last administered on 02/10/19 23:20; Admin Dose 1 APPLIC; Start 02/06/19 at 21:00 Multi-Ingredient Ointment (Aquaphor Oint 52.5 Gm) 1 applic BID TOP Last administered on 02/11/19 09:03; Admin Dose 1 APPLIC; Start 02/06/19 at 22:40 Lansoprazole (Prevacid) 30 mg BID@0600,1800 NGT Last administered on 02/11/19 06:39; Admin Dose 30 MG; Start 02/07/19 at 18:00 Tobramycin Sulfate/Sodium Chloride (Nilesh Inhal) 300 mg BID RESP THERAPY NEB Last administered on 02/11/19 09:52; Admin Dose 300 MG; Start 02/08/19 at 09:00 Furosemide (Lasix) 20 mg BID DIURETICS IV Last administered on 02/11/19 06:39; Admin Dose 20 MG; Start 02/08/19 at 18:00 Morphine Sulfate (morphine) 0.5 mg Q4H PRN IV SEVERE PAIN LEVEL 7-10 Last administered on 02/10/19 18:18; Admin Dose 0.5 MG; Start 02/08/19 at 19:00 Vancomycin HCl 750 mg/Dextrose 250 ml @ 125 mls/hr Q72H IVPB Last administered on 02/09/19 22:56; Admin Dose 125 MLS/HR; Start 02/09/19 at 23:00 OREN MARSH M.D. February 11, 2019 13:30
--- NOTE | 2019-02-11 13:57 | CONS ---
Assessment/Plan Assessment/Plan Hospital Course (Demo Recall) Patient is more awake today of BiPAP looks comfortable use in no distress. WBC 11.6 platelets 121 neutrophils 86.8 BUN 75 creatinine 1.7 Wound culture grew Corynebacterium species. Sputum culture grew E. coli C dif neg Antimicrobials: Vancomycin, aztreonam, tobramycin inhalation Indwelling: Left subclavian triple-lumen catheter, Wade catheter, NG tube Allergy: Penicillin, sulfa Physical examination: Obese well-developed chronically ill-appearing - Indian man who is lethargic, in no distress. Head atraumatic normocephalic sclera nonicteric. Neck is supple chest rise symmetrical breath sounds diminished bases. Heart: S1-S2. Abdomen obese soft bowel sounds present extr emities without cyanosis, bilateral edema Assessment: 1. Ongoing sepsis s/p shock 2. Acute hypoxemic respiratory failure, possible aspirated 2. Acute encephalopathy 3. Seizures 4. Healthcare acquired pneumonia 5. Coronary artery disease/history of CABG 6. Advanced rheumatoid arthritis 5. Chronic atrial fibrillation 6. Diabetes 7. BPH 9. Acute on chronic anemia===> s/p EGD/colonoscopy 01/09/19 10. Status post right epididymitis 11. Pancreatic lesion per CT, unlikely neoplasm per oncology notes 12. 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 Overall prognosis very poor. Patient is full code Consultation Date/Type/Reason Admit Date/Time Jan 17, 2019 at 15:58 Initial Consult Date 01/18/19 Type of Consult id Requesting Provider: IVAN AKHTAR MD Date/Time of Note DATE: 02/11/19 TIME: 13:56 Exam/Review of Systems Exam Vitals Vital Signs Date Temp Pulse Resp B/P (MAP) Pulse Ox O2 O2 Flow FiO2 Time Delivery Rate 02/11/19 71 12:00 02/11/19 96.4 30 101/36 98 Nasal 12:00 (57) Cannula 02/11/19 5.0 09:56 02/11/19 30 08:14 Intake and Output 02/10/19 02/10/19 02/11/19 1515:00 23:00 07:00 IntakeIntake Total 810 ml 805 ml 757 ml OutputOutput Total 700 ml 755 ml 555 ml BalanceBalance 110 ml 50 ml 202 ml Results Result Diagram: 02/11/19 0440 02/11/19 0440 Results 24hrs Laboratory Tests Test 02/10/19 17:05 02/10/19 21:24 02/11/19 01:10 02/11/19 04:40 Bedside Glucose 73 109 118 White Blood 11.6 #H Count Red Blood Count 2.97 L Hemoglobin 8.6 L Hematocrit 27.9 L Mean Corpuscular 93.9 Volume Mean Corpuscular 29.0 Hemoglobin Mean Corpuscular 30.8 L Hemoglobin June nt Red Cell 21.2 H Distribution Width Platelet Count 121 L Mean Platelet 13.6 H Volume Immature 0.500 H Granulocytes % Neutrophils % 86.8 H Lymphocytes % 11.2 L Monocytes % 1.4 Eosinophils % 0.0 Basophils % 0.1 Nucleated Red 0.4 H Blood Cells % Immature 0.060 H Granulocytes # Neutrophils # 10.1 H Lymphocytes # 1.3 Monocytes # 0.2 L Eosinophils # 0.0 Basophils # 0.0 Nucleated Red 0.1 H Blood Cells # Sodium Level 150 H Potassium Level 5.1 Chloride Level 115 H Carbon Dioxide 29 Level Anion Gap 6 Blood Urea 75 H Nitrogen Creatinine 1.70 H Est Glomerular Filtrat Rate mL/min Glucose Level 112 Calcium Level 8.1 L Phosphorus Level 5.3 H Magnesium Level 2.1 Test 02/11/19 04:57 02/11/19 05:35 02/11/19 06:00 02/11/19 08:59 Lab Scanned BLOOD TRANSFUSI Report ON Bedside Glucose 135 141 Blood Gas Blood arterial Specimen Source Arterial Blood 02/11/2019 5:28: Date Drawn 30 AM Arterial Blood 7.397 pH (Temp corrected) Arterial Blood 45.9 H pCO2 (Temp correct) Arterial Blood 116.3 H pO2 (Temp corrected) Arterial Blood 27.6 H HCO3 Arterial Blood 2.4 Base Excess Arterial Blood 98.0 Oxygen Saturatio n Manuel Test ACCEPTAB Arterial Blood LB Gas Puncture Site Arterial 0.3 Blood Carboxyhem oglobin Arterial Blood 0.3 Methemoglobin Blood Gas A-a O2 116.1 H Differential Oxyhemoglobin 97.4 Percent Blood Gas 37.0 Temperature Blood Gas Actual 21 Respiration Rate Blood Gas MASK - BIPAP Modality FiO2 40.0 Blood Gas 11/05 IPAP/EPAP Ratio Blood Gas Jamie [facility] Notified Whom Blood Gas 02/11/2019 5:38: Notified Time 50 AM Test 02/11/19 12:56 Bedside Glucose 117 Medications Medication Current Medications Lactulose (Enulose) 20 gm DAILY PRN PO CONSTIPATION; Start 01/17/19 at 18:17 Acetaminophen (Tylenol Tab) 650 mg Q4H PRN PO PAIN Last administered on 01/23/19at 22:48; Admin Dose 650 MG; Start 01/17/19 at 18:17 Miscellaneous Information ([facility] This patient ramirez... PRN PRN XX WOUND CARE; Start 01/17/19 at 18:17 Albuterol/ Ipratropium (Duoneb) 3 ml Q2H RESP THERAPY PRN HHN SHORTNESS OF BREATH Last administered on 02/07/19at 05:45; Admin Dose 3 ML; Start 01/17/19 at 18:17 Bisacodyl (Dulcolax) 10 mg BID PRN PO CONSTIPATION; Start 01/17/19 at 18:17; Status Hold Folic Acid (Folic Acid) 1 mg DAILY PO Last administered on 02/11/19at 09:02; Admin Dose 1 MG; Start 01/17/19 at 18:17 Latanoprost (Xalatan) 1 drop HS BOTH EYES Last administered on 02/10/19at 20:56; Admin Dose 1 DROP; Start 01/17/19 at 18:17 Nitroglycerin (Nitroglycerin (Sl Tab) 0.4 Mg) 0.4 tab Q5M PRN SL CHEST PAIN; Start 01/17/19 at 18:17 Nystatin (Nystatin Powder) 1 applic BID TOP Last administered on 02/11/19at 09:04; Admin Dose 1 APPLIC; Start 01/17/19 at 18:17 IV Flush (NS 3 ml) 3 ml PER PROTOCOL IV ; Start 01/17/19 at 18:17 Miscellaneous Information 1 ea NOTE XX ; Start 01/17/19 at 18:17 Glucose (Glutose) 15 gm Q15M PRN PO DECREASED GLUCOSE; Start 01/17/19 at 18:17 Glucose (Glutose) 22.5 gm Q15M PRN PO DECREASED GLUCOSE; Start 01/17/19 at 18:17 Dextrose (D50w Syringe) 25 ml Q15M PRN IV DECREASED GLUCOSE Last administered on 02/05/19at 09:50; Admin Dose 25 ML; Start 01/17/19 at 18:17 Dextrose (D50w Syringe) 50 ml Q15M PRN IV DECREASED GLUCOSE; Start 01/17/19 at 18:17 Glucagon (Glucagen) 1 mg Q15M PRN IM DECREASED GLUCOSE; Start 01/17/19 at 18:17 Glucose (Glutose) 15 gm Q15M PRN BUCCAL DECREASED GLUCOSE; Start 01/17/19 at 18:17 Ascorbic Acid (Vitamin C) 250 mg DAILY PO Last administered on 02/11/19at 09:01; Admin Dose 250 MG; Start 01/17/19 at 18:17 Bisacodyl (Dulcolax Supp) 10 mg DAILY PRN [place] CONSTIPATION; Start 01/17/19 at 18:17 Zinc Acetate/ Diphenhydramine (Benadryl 2% Cr) 1 applic Q6H PRN TOP ITCHING Last administered on 01/26/19at 07:54; Admin Dose 1 APPLIC; Start 01/19/19 at 16:37 IV Flush (NS 10 ml) 10 ml PRN PRN IV IV PROTOCOL; Start 01/20/19 at 14:30 Cyanocobalamin (Vitamin B12 Inj) 1,000 mcg Q7D IM Last administered on 02/10/19at 09:50; Admin Dose 1,000 MCG; Start 02/03/19 at 09:00 Metoprolol Tartrate (Lopressor) 5 mg Q4H PRN IV HR>110 Hold SBP<100; Start 01/26/19 at 14:30 Vancomycin HCl (Vanco Iv Per Pharmacy) VANCOMYCIN PER PHARMACY PER PROTOCOL XX ; Start 01/27/19 at 12:00 Enoxaparin Sodium (Lovenox) 60 mg DAILY SC Last administered on 02/03/19at 08:06; Admin Dose 60 MG; Start 01/28/19 at 09:00; Status Hold Atorvastatin Calcium (Lipitor) 40 mg QHS NGT Last administered on 02/10/19at 20:54; Admin Dose 40 MG; Start 01/28/19 at 21:00 Docusate Sodium (Colace Liquid Cup) 100 mg BID NGT ; Start 01/27/19 at 22:00; Status Hold Terazosin HCl (Hytrin) 10 mg HS NGT Last administered on 02/09/19 21:01; Admin Dose 10 MG; Start 01/28/19 at 21:00 Levothyroxine Sodium (Synthroid) 125 mcg BEFORE BREAKFAST NGT Last administered on 02/11/19 06:39; Admin Dose 125 MCG; Start 01/28/19 at 07:00 Ferrous Sulfate (Feosol Liquid Cup) 300 mg WITH MEALS GTB Last administered on 02/11/19 09:02; Admin Dose 300 MG; Start 01/28/19 at 11:30 Multivitamins (Multivitamin) 30 ml DAILY GTB Last administered on 02/11/19 09:02; Admin Dose 30 ML; Start 01/28/19 at 11:00 Diagnostic Test (Pha) (Accu-Chek) 1 ea Q4 XX Last administered on 02/11/19 09:06; Admin Dose 1 EA; Start 01/28/19 at 13:00 Nystatin/ Triamcinolone Acetonide (Mycolog Oint) 1 applic BID TOP Last administered on 02/11/19 09:04; Admin Dose 1 APPLIC; Start 01/28/19 at 22:30 Insulin Aspart (Novolog Insulin Pen) NOVOLOG *MILD* ALGORI... Q4 SC Last administered on 02/11/19 09:16; Admin Dose 1 UNIT; Start 01/29/19 at 05:00 Albuterol/ Ipratropium (Duoneb) 3 ml Q6HWA RESP THERAPY HHN Last administered on 02/11/19 08:18; Admin Dose 3 ML; Start 01/29/19 at 14:00 Epoetin Dae-epbx (RETACRIT(non-esrd)) 40,000 unit Mo@1700 SC Last administered on 02/10/19 18:06; Admin Dose 40,000 UNIT; Start 02/03/19 at 17:00 Insulin Glargine (Lantus) 10 units DAILY@2000 SC Last administered on 02/10/19 21:41; Admin Dose 10 UNITS; Start 01/31/19 at 20:00 Aztreonam 1 gm/ Dextrose 50 ml @ 100 mls/hr Q12 IVPB Last administered on 02/11/19 09:03; Admin Dose 100 MLS/HR; Start 02/03/19 at 21:00 Metoprolol Tartrate (Lopressor) 12.5 mg BID PO Last administered on 02/11/19 09:02; Admin Dose 12.5 MG; Start 02/05/19 at 21:00 Eye Lubricant (Refresh Plus) 1 drop QID BOTH EYES Last administered on 02/11 09:06; Admin Dose 1 DROP; Start 02/06/19 at 09:00 Eye Lubricant (Akwa Oint) 1 applic HS LEFT EYE Last administered on 02/10/19 23:20; Admin Dose 1 APPLIC; Start 02/06/19 at 21:00 Multi-Ingredient Ointment (Aquaphor Oint 52.5 Gm) 1 applic BID TOP Last administered on 02/11/19 09:03; Admin Dose 1 APPLIC; Start 02/06/19 at 22:40 Lansoprazole (Prevacid) 30 mg BID@0600,1800 NGT Last administered on 02/11/19 06:39; Admin Dose 30 MG; Start 02/07/19 at 18:00 Tobramycin Sulfate/Sodium Chloride (Nilesh Inhal) 300 mg BID RESP THERAPY NEB Last administered on 02/11/19 09:52; Admin Dose 300 MG; Start 02/08/19 at 09:00 Furosemide (Lasix) 20 mg BID DIURETICS IV Last administered on 02/11/19 06:39; Admin Dose 20 MG; Start 02/08/19 at 18:00 Morphine Sulfate (morphine) 0.5 mg Q4H PRN IV SEVERE PAIN LEVEL 7-10 Last administered on 02/10/19 18:18; Admin Dose 0.5 MG; Start 02/08/19 at 19:00 Vancomycin HCl 750 mg/Dextrose 250 ml @ 125 mls/hr Q72H IVPB Last administered on 02/09/19 22:56; Admin Dose 125 MLS/HR; Start 02/09/19 at 23:00 Diphenhydramine HCl (Benadryl) 25 mg ONCE ONCE IV ; Start 02/11/19 at 14:00; Stop 02/11/19 at 14:01 LUCIAN HARKINS NP February 11, 2019 13:57
[2019-02-11] MEDS ORDERED: DIPHENHYDRAMINE 50 MG INJ IV ONE (14:00)
--- NOTE | 2019-02-11 14:07 | CONS ---
Consult Date/Type/Reason Admit Date/Time Jan 17, 2019 at 15:58 Initial Consult Date Type of Consultation: Pulm/CCM Requesting Provider: IVAN AKHTAR MD Date/Time of Note DATE: 02/11/19 TIME: 14:03 Objective Vitals Vital Signs Date Temp Pulse Resp B/P (MAP) Pulse Ox O2 O2 Flow FiO2 Time Delivery Rate 02/11/19 71 12:00 02/11/19 96.4 30 101/36 98 Nasal 12:00 (57) Cannula 02/11/19 5.0 09:56 02/11/19 30 08:14 Intake and Output 02/10/19 02/10/19 02/11/19 1515:00 23:00 07:00 IntakeIntake Total 810 ml 805 ml 757 ml OutputOutput Total 700 ml 755 ml 555 ml BalanceBalance 110 ml 50 ml 202 ml Results/Medications Result Diagram: 02/11/19 0440 02/11/19 0440 Results 24 hrs Laboratory Tests Test 02/10/19 17:05 02/10/19 21:24 02/11/19 01:10 02/11/19 04:40 Bedside Glucose 73 109 118 White Blood 11.6 #H Count Red Blood Count 2.97 L Hemoglobin 8.6 L Hematocrit 27.9 L Mean Corpuscular 93.9 Volume Mean Corpuscular 29.0 Hemoglobin Mean Corpuscular 30.8 L Hemoglobin June nt Red Cell 21.2 H Distribution Width Platelet Count 121 L Mean Platelet 13.6 H Volume Immature 0.500 H Granulocytes % Neutrophils % 86.8 H Lymphocytes % 11.2 L Monocytes % 1.4 Eosinophils % 0.0 Basophils % 0.1 Nucleated Red 0.4 H Blood Cells % Immature 0.060 H Granulocytes # Neutrophils # 10.1 H Lymphocytes # 1.3 Monocytes # 0.2 L Eosinophils # 0.0 Basophils # 0.0 Nucleated Red 0.1 H Blood Cells # Sodium Level 150 H Potassium Level 5.1 Chloride Level 115 H Carbon Dioxide 29 Level Anion Gap 6 Blood Urea 75 H Nitrogen Creatinine 1.70 H Est Glomerular Filtrat Rate mL/min Glucose Level 112 Calcium Level 8.1 L Phosphorus Level 5.3 H Magnesium Level 2.1 Test 02/11/19 04:57 02/11/19 05:35 02/11/19 06:00 02/11/19 08:59 Lab Scanned BLOOD TRANSFUSI Report ON Bedside Glucose 135 141 Blood Gas Blood arterial Specimen Source Arterial Blood 02/11/2019 5:28: Date Drawn 30 AM Arterial Blood 7.397 pH (Temp corrected) Arterial Blood 45.9 H pCO2 (Temp correct) Arterial Blood 116.3 H pO2 (Temp corrected) Arterial Blood 27.6 H HCO3 Arterial Blood 2.4 Base Excess Arterial Blood 98.0 Oxygen Saturatio n Manuel Test ACCEPTAB Arterial Blood LB Gas Puncture Site Arterial 0.3 Blood Carboxyhem oglobin Arterial Blood 0.3 Methemoglobin Blood Gas A-a O2 116.1 H Differential Oxyhemoglobin 97.4 Percent Blood Gas 37.0 Temperature Blood Gas Actual 21 Respiration Rate Blood Gas MASK - BIPAP Modality FiO2 40.0 Blood Gas 18/8 IPAP/EPAP Ratio Blood Gas LMarv [facility] Notified Whom Blood Gas 02/11/2019 5:38: Notified Time 50 AM Test 02/11/19 12:56 Bedside Glucose 117 Home Meds Active Scripts Apixaban* (Eliquis*) 5 Mg Tablet, 2.5 MG PO BID for 30 Days, TAB Prov:IVAN AKHTAR MD 12/20/18 Metoprolol Tartrate* (Lopressor*) 50 Mg Tab, 50 MG PO BID for 30 Days, TAB Prov:COOPER CARO 12/20/18 Reported Medications Furosemide* (Lasix*) 20 Mg Tablet, 20 MG PO BID, TAB 01/05/19 Polyethylene Glycol* (Miralax*) 17 Gm Powd.pack, 17 GM PO DAILY, #30 PACKET 12/15/18 Nifedipine* (Nifedipine ER*) 60 Mg Tablet.sa, 60 MG PO DAILY, TAB.SA 12/15/18 Bisacodyl* (Bisacodyl*) 5 Mg Tablet.dr, 10 MG PO BID PRN for CONSTIPATION, TAB 12/15/18 Pregabalin* (Lyrica*) 25 Mg Capsule, 25 MG PO TID, CAP 12/15/18 Bimatoprost* (Lumigan*) 0.01%-5 Ml Opht Drops, 1 DROP BOTH EYES HS, EA 03/02/18 Cetirizine Hcl* (Cetirizine Hcl*) 10 Mg Tablet, 10 MG PO DAILY, #30 TAB 03/02/18 Insulin Glargine* (Lantus*) 100 Unit/Ml Soln, 10 UNIT SC QHS, #1 VIAL 03/02/18 Ergocalciferol (Vitamin D2) (VITAMIN D2) 2,000 Unit Tablet, 2000 UNIT PO DAILY, TAB 03/02/18 Famotidine* (Famotidine*) 20 Mg Tablet, 20 MG PO DAILY, #30 TAB 03/02/18 Ferrous Sulfate* (Ferrous Sulfate*) 325 Mg Tabec, 325 MG PO BID, TAB 03/02/18 Nitroglycerin* (Nitrostat*) 0.4 Mg Tab.subl, 0.4 MG SL Q5MIN PRN for CHEST PAIN, BOTTLE 03/02/18 Terazosin Hcl* (Terazosin Hcl*) 10 Mg Capsule, 10 MG PO HS, CAP 03/02/18 Levothyroxine Sodium* (Levoxyl*) 125 Mcg Tablet, 125 MCG PO BEFORE BREAKFAST, #30 TAB 03/02/18 Allopurinol* (Allopurinol*) 100 Mg Tablet, 100 MG PO BID, TAB 03/02/18 Atorvastatin* (Atorvastatin*) 40 Mg Tablet, 40 MG PO QHS, #30 TAB 03/02/18 Folic Acid* (Folic Acid*) 1 Mg Tablet, 1 MG PO DAILY, TAB 03/02/18 Medications Current Medications Lactulose (Enulose) 20 gm DAILY PRN PO CONSTIPATION; Start 01/17/19 at 18:17 Acetaminophen (Tylenol Tab) 650 mg Q4H PRN PO PAIN Last administered on 01/23/19at 22:48; Admin Dose 650 MG; Start 01/17/19 at 18:17 Miscellaneous Information [facility] This patient ramirez. .. PRN PRN XX WOUND CARE; Start 01/17/19 at 18:17 Albuterol/ Ipratropium (Duoneb) 3 ml Q2H RESP THERAPY PRN HHN SHORTNESS OF BREATH Last administered on 02/07/19at 05:45; Admin Dose 3 ML; Start 01/17/19 at 18:17 Bisacodyl (Dulcolax) 10 mg BID PRN PO CONSTIPATION; Start 01/17/19 at 18:17; Status Hold Folic Acid (Folic Acid) 1 mg DAILY PO Last administered on 02/11/19at 09:02; Admin Dose 1 MG; Start 01/17/19 at 18:17 Latanoprost (Xalatan) 1 drop HS BOTH EYES Last administered on 02/10/19at 20:56; Admin Dose 1 DROP; Start 01/17/19 at 18:17 Nitroglycerin (Nitroglycerin (Sl Tab) 0.4 Mg) 0.4 tab Q5M PRN SL CHEST PAIN; Start 01/17/19 at 18:17 Nystatin (Nystatin Powder) 1 applic BID TOP Last administered on 02/11/19at 09:04; Admin Dose 1 APPLIC; Start 01/17/19 at 18:17 IV Flush (NS 3 ml) 3 ml PER PROTOCOL IV ; Start 01/17/19 at 18:17 Miscellaneous Information 1 ea NOTE XX ; Start 01/17/19 at 18:17 Glucose (Glutose) 15 gm Q15M PRN PO DECREASED GLUCOSE; Start 01/17/19 at 18:17 Glucose (Glutose) 22.5 gm Q15M PRN PO DECREASED GLUCOSE; Start 01/17/19 at 18:17 Dextrose (D50w Syringe) 25 ml Q15M PRN IV DECREASED GLUCOSE Last administered on 02/05/19at 09:50; Admin Dose 25 ML; Start 01/17/19 at 18:17 Dextrose (D50w Syringe) 50 ml Q15M PRN IV DECREASED GLUCOSE; Start 01/17/19 at 18:17 Glucagon (Glucagen) 1 mg Q15M PRN IM DECREASED GLUCOSE; Start 01/17/19 at 18:17 Glucose (Glutose) 15 gm Q15M PRN BUCCAL DECREASED GLUCOSE; Start 01/17/19 at 18:17 Ascorbic Acid (Vitamin C) 250 mg DAILY PO Last administered on 02/11/19at 09:01; Admin Dose 250 MG; Start 01/17/19 at 18:17 Bisacodyl (Dulcolax Supp) 10 mg DAILY PRN AL CONSTIPATION; Start 01/17/19 at 18:17 Zinc Acetate/ Diphenhydramine (Benadryl 2% Cr) 1 applic Q6H PRN TOP ITCHING Last administered on 01/26/19at 07:54; Admin Dose 1 APPLIC; Start 01/19/19 at 16:37 IV Flush (NS 10 ml) 10 ml PRN PRN IV IV PROTOCOL; Start 01/20/19 at 14:30 Cyanocobalamin (Vitamin B12 Inj) 1,000 mcg Q7D IM Last administered on 02/10/19 09:50; Admin Dose 1,000 MCG; Start 02/03/19 at 09:00 Metoprolol Tartrate (Lopressor) 5 mg Q4H PRN IV HR>110 Hold SBP<100; Start 01/26/19 at 14:30 Vancomycin HCl (Vanco Iv Per Pharmacy) VANCOMYCIN PER PHARMACY PER PROTOCOL XX ; Start 01/27/19 at 12:00 Enoxaparin Sodium (Lovenox) 60 mg DAILY SC Last administered on 02/03/19 08:06; Admin Dose 60 MG; Start 01/28/19 at 09:00; Status Hold Atorvastatin Calcium (Lipitor) 40 mg QHS NGT Last administered on 02/10/19at 20:54; Admin Dose 40 MG; Start 01/28/19 at 21:00 Docusate Sodium (Colace Liquid Cup) 100 mg BID NGT ; Start 01/27/19 at 22:00; Status Hold Terazosin HCl (Hytrin) 10 mg HS NGT Last administered on 02/09/19at 21:01; Admin Dose 10 MG; Start 01/28/19 at 21:00 Levothyroxine Sodium (Synthroid) 125 mcg BEFORE BREAKFAST NGT Last administered on 02/11/19at 06:39; Admin Dose 125 MCG; Start 01/28/19 at 07:00 Ferrous Sulfate (Feosol Liquid Cup) 300 mg WITH MEALS GTB Last administered on 02/11/19 09:02; Admin Dose 300 MG; Start 01/28/19 at 11:30 Multivitamins (Multivitamin) 30 ml DAILY GTB Last administered on 02/11/19 09:02; Admin Dose 30 ML; Start 01/28/19 at 11:00 Diagnostic Test (Pha) (Accu-Chek) 1 ea Q4 XX Last administered on 02/11/19 09:06; Admin Dose 1 EA; Start 01/28/19 at 13:00 Nystatin/ Triamcinolone Acetonide (Mycolog Oint) 1 applic BID TOP Last administered on 02/11/19 09:04; Admin Dose 1 APPLIC; Start 01/28/19 at 22:30 Insulin Aspart (Novolog Insulin Pen) NOVOLOG *MILD* ALGORI... Q4 SC Last administered on 02/11/19 09:16; Admin Dose 1 UNIT; Start 01/29/19 at 05:00 Albuterol/ Ipratropium (Duoneb) 3 ml Q6HWA RESP THERAPY HHN Last administered on 02/11/19 08:18; Admin Dose 3 ML; Start 01/29/19 at 14:00 Epoetin Dae-epbx (RETACRIT(non-esrd)) 40,000 unit Mo@1700 SC Last administered on 02/10/19 18:06; Admin Dose 40,000 UNIT; Start 02/03/19 at 17:00 Insulin Glargine (Lantus) 10 units DAILY@2000 SC Last administered on 02/10/19 21:41; Admin Dose 10 UNITS; Start 01/31/19 at 20:00 Aztreonam 1 gm/ Dextrose 50 ml @ 100 mls/hr Q12 IVPB Last administered on 02/11/19 09:03; Admin Dose 100 MLS/HR; Start 02/03/19 at 21:00 Metoprolol Tartrate (Lopressor) 12.5 mg BID PO Last administered on 02/11/19 09:02; Admin Dose 12.5 MG; Start 02/05/19 at 21:00 Eye Lubricant (Refresh Plus) 1 drop QID BOTH EYES Last administered on 09:06; Admin Dose 1 DROP; Start 02/06/19 at 09:00 Eye Lubricant (Akwa Oint) 1 applic HS LEFT EYE Last administered on 02/10/19 23:20; Admin Dose 1 APPLIC; Start 02/06/19 at 21:00 Multi-Ingredient Ointment (Aquaphor Oint 52.5 Gm) 1 applic BID TOP Last administered on 02/11/19 09:03; Admin Dose 1 APPLIC; Start 02/06/19 at 22:40 Lansoprazole (Prevacid) 30 mg BID@0600,1800 NGT Last administered on 02/11/19 06:39; Admin Dose 30 MG; Start 02/07/19 at 18:00 Tobramycin Sulfate/Sodium Chloride (Nilesh Inhal) 300 mg BID RESP THERAPY NEB Last administered on 02/11/19 09:52; Admin Dose 300 MG; Start 02/08/19 at 09:00 Furosemide (Lasix) 20 mg BID DIURETICS IV Last administered on 02/11/19at 06:39; Admin Dose 20 MG; Start 02/08/19 at 18:00 Morphine Sulfate (morphine) 0.5 mg Q4H PRN IV SEVERE PAIN LEVEL 7-10 Last administered on 02/10/19at 18:18; Admin Dose 0.5 MG; Start 02/08/19 at 19:00 Vancomycin HCl 750 mg/Dextrose 250 ml @ 125 mls/hr Q72H IVPB Last administered on 02/09/19at 22:56; Admin Dose 125 MLS/HR; Start 02/09/19 at 23:00 Assessment/Plan Hospital Course (Demo Recall) 1. Atrial fibrillation, currently rate controlled.-off systemic anticoagulation due to anemia. On ASA only now - RATE CONTROLLED. now in a. fib. At 100s - will allow for now. Wll allow for now. Eliquis dosed to be held. NOw in ICD - more alert - family at bedside. 2. CHF - chronic, DD. EF of 60%.Spot diuresis as needed. Con't to follow. Overall unchanged. 3. Tricuspid regurgitation, moderate by most recent echo. 4. Acute on chronic renal failure - Cr up to 1.66 to 1.[address] Alatorre follow. Stable. Reasonable urine output. Might be new baseline. 5. Hyponatremia - going up to 150s - check am cortisol level. BETTER and more alert. 5. Possible pneumonia - on anti-bx now. ID follows On pressors now. 6. History of coronary artery disease, status post coronary artery bypass graft surgery. Treated. 7. Dyslipidemia. 8. Rheumatoid arthritis - Rx per rheumatology. 9. Groin cellulitis. 10. Anemia-worsening again today requiring transfusions - trending down, will monitor. Blood Tx advised. 11. Diabetes mellitus. 12. Sepsis - skin looks better. Con't supportive rX. LOU PATINO MD February 11, 2019 14:07
[2019-02-11] MEDS: DEXTROSE 50% 50 ML SYRINGE IV PRN (18:27)
[2019-02-11] MEDS: INSULIN GLARGINE [LANTus] (100 UNITS/ML) SYG SC SCH (20:00)
[2019-02-11] MEDS: OCULAR LUBRICANT 3.5 GM OPH OINT LEFT EYE SCH (20:48)
[2019-02-11] MEDS: TERAZOSIN 5 MG CAP NGT SCH (20:57)
[2019-02-11] MEDS: ATORVASTATIN 40 MG TAB NGT SCH (20:58)
[2019-02-11] MEDS: LATANOPROST 0.005% 2.5 ML OPH BOTH EYES SCH (21:02)
[2019-02-11] MEDS: ACETAMINOPHEN 325 MG TAB PO PRN (21:29)
[2019-02-12] VITALS (22 sets, daily range): BP systolic 97–120; BP diastolic 39–88; PULSE 70–96; RESP 18–36
[2019-02-12] MEDS: INSULIN ASPART [NOVOLOG] 3 ML PEN SC SCH ×6 (00:48→21:00)
[2019-02-12] MEDS: ACCU-CHEK XX SCH ×6 (00:54→21:00)
[2019-02-12] MEDS ORDERED: LORAZEPAM 2 MG INJ IV ONE (03:00)
[2019-02-12] MEDS: FUROSEMIDE 20 MG INJ IV SCH (05:36)
[2019-02-12] MEDS: LANSOPRAZOLE 30 MG CAP NGT SCH ×2 (05:36→18:00)
[2019-02-12] MEDS: LEVOTHYROXINE 125 MCG TAB NGT SCH (07:00)
[2019-02-12] MEDS: FERROUS SULFATE 60 MG/ML 5ML CUP GTB SCH ×3 (07:35→17:55)
[2019-02-12] MEDS: ALBUTEROL/IPRATROPIUM (NEB) 3 ML AMP HHN SCH ×3 (07:45→19:40)
[2019-02-12] MEDS: TOBRAMYCIN/0.25NS 300 MG/5 ML INHAL NEB SCH ×2 (07:46→19:49)
[2019-02-12] MEDS: FOLIC ACID 1 MG TAB PO SCH (09:00)
[2019-02-12] MEDS: MULTIVITAMINS 30 ML CUP GTB SCH (09:00)
[2019-02-12] MEDS: METOPROLOL 25 MG TAB PO SCH ×2 (09:00→22:22)
[2019-02-12] MEDS: ASCORBIC ACID 250 MG TAB PO SCH (09:00)
--- NOTE | 2019-02-12 09:25 | CONS ---
Assessment/Plan Assessment/Plan Hospital Course (Demo Recall) 88 yo male with multiple medical problems including DM, CRF, RA, PVD and chronic afib on Eliquis who presented to [facility] 01/05/19 with severe normocytic anemia and Hg ~7. 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 # Anemia-normocytic -Hg did drop to 7.2. 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 Elevated Methylmalonic acid level noted -s/p IV iron. will recheck iron panel at this time -continue vitamin b12 weekly as vitamin b12 was low normal and methylmalonic acid was elevated. Continue folate as well. -No evidence of hemolysis at this time. -Transfuse to keep Hgb > 7. 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 -This may be a pseudocyst or a precancerous pancreatic lesion. -It has been growing in size but patient is asymptomatic. EUS with biopsy is recommended and can either be done inpatient or outpatient setting. -The patient at this time is unlikely a candidate for a whipple surgery however. Thank you to Dr. Alatorre for allowing [facility] to participate in the care of this patient. A total of 40 minutes was spent in consultation with this patient and all his questions were answered. Consultation Date/Type/Reason Admit Date/Time Jan 17, 2019 at 15:58 Initial Consult Date 01/18/19 Type of Consult hematology Reason for Consultation anemia Requesting Provider: IVAN AKHTAR MD Date/Time of Note DATE: 02/12/19 TIME: 09:22 24 HR Interval Summary Free Text/Dictation pt moved out of ICU last night. lethargic. Exam/Review of Systems Exam Vitals Vital Signs Date Temp Pulse Resp B/P (MAP) Pulse Ox O2 O2 Flow FiO2 Time Delivery Rate 02/12/19 85 09:21 02/12/19 100 6.0 07:46 02/12/19 25 Nasal 07:46 Cannula 02/12/19 109/44 05:30 (65) 02/12/19 98.1 04:00 02/12/19 30 01:08 Intake and Output 02/11/19 02/11/19 02/12/19 1515:00 23:00 07:00 IntakeIntake Total 820 ml 870 ml 680 ml OutputOutput Total 555 ml 420 ml 200 ml BalanceBalance 265 ml 450 ml 480 ml Constitutional: alert, other (lethargic) Psych: anxiety, confusion, depression Head: normocephalic Eyes: nl conjunctiva ENMT: nl external ears & nose Neck: supple Respiratory: clear to auscultation Cardiovascular: regular rate and rhythm Gastrointestinal: soft Musculoskeletal: nl extremities to inspection Results Result Diagram: 02/12/19 0445 02/12/19 0420 Results 24hrs Laboratory Tests Test 02/11/19 12:56 02/11/19 17:45 02/11/19 17:46 02/11/19 18:19 Bedside Glucose 117 57 L 61 L 64 L Test 02/11/19 18:20 02/11/19 18:25 02/11/19 18:44 02/11/19 20:14 Bedside Glucose 66 L 66 L 185 109 Test 02/12/19 00:47 02/12/19 04:20 02/12/19 04:37 02/12/19 04:45 Bedside Glucose 84 102 Sodium Level 150 H Potassium Level 4.6 Chloride Level 116 H Carbon Dioxide Level 30 Anion Gap 4 L Blood Urea Nitrogen 91 H Creatinine 1.91 H Est Glomerular Filtrat Rate mL/min Glucose Level 87 Calcium Level 8.0 L Phosphorus Level 4.7 Magnesium Level 2.3 Total Bilirubin 0.3 Direct Bilirubin 0.00 Indirect Bilirubin 0.3 Aspartate Amino 23 Transf (AST/SGOT) Alanine 39 Aminotransferase (AL T/SGPT) Alkaline Phosphatase 80 Ammonia 13 Total Protein 4.0 L Albumin 1.7 L Globulin 2.30 Albumin/Globulin 0.73 Ratio White Blood Count 11.0 H Red Blood Count 2.46 L Hemoglobin 7.2 L Hematocrit 23.4 L Mean Corpuscular 95.1 Volume Mean Corpuscular 29.3 Hemoglobin Mean Corpuscular 30.8 L Hemoglobin Concent Red Cell 20.9 H Distribution Width Platelet Count 119 L Mean Platelet Volume 13.3 H Immature 0.500 H Granulocytes % Neutrophils % 77.9 H Lymphocytes % 17.7 Monocytes % 3.7 Eosinophils % 0.1 Basophils % 0.1 Nucleated Red Blood 0.8 H Cells % Immature 0.050 H Granulocytes # Neutrophils # 8.6 H Lymphocytes # 2.0 Monocytes # 0.4 Eosinophils # 0.0 Basophils # 0.0 Nucleated Red Blood 0.1 H Cells # Medications Medication Current Medications Lactulose (Enulose) 20 gm DAILY PRN PO CONSTIPATION; Start 01/17/19 at 18:17 Acetaminophen (Tylenol Tab) 650 mg Q4H PRN PO PAIN Last administered on 02/11/19at 21:29; Admin Dose 650 MG; Start 01/17/19 at 18:17 [facility] This patient ramirez... PRN PRN XX WOUND CARE; Start 01/17/19 at 18:17 Albuterol/ Ipratropium (Duoneb) 3 ml Q2H RESP THERAPY PRN HHN SHORTNESS OF BREATH Last administered on 02/07/19at 05:45; Admin Dose 3 ML; Start 01/17/19 at 18:17 Bisacodyl (Dulcolax) 10 mg BID PRN PO CONSTIPATION; Start 01/17/19 at 18:17; Status Hold Folic Acid (Folic Acid) 1 mg DAILY PO Last administered on 02/11/19at 09:02; Admin Dose 1 MG; Start 01/17/19 at 18:17 Latanoprost (Xalatan) 1 drop HS BOTH EYES Last administered on 02/11/19at 21:02; Admin Dose 1 DROP; Start 01/17/19 at 18:17 Nitroglycerin (Nitroglycerin (Sl Tab) 0.4 Mg) 0.4 tab Q5M PRN SL CHEST PAIN; Start 01/17/19 at 18:17 Nystatin (Nystatin Powder) 1 applic BID TOP Last administered on 02/11/19at 20:49; Admin Dose 1 APPLIC; Start 01/17/19 at 18:17 IV Flush (NS 3 ml) 3 ml PER PROTOCOL IV ; Start 01/17/19 at 18:17 Miscellaneous Information 1 ea NOTE XX ; Start 01/17/19 at 18:17 Glucose (Glutose) 15 gm Q15M PRN PO DECREASED GLUCOSE; Start 01/17/19 at 18:17 Glucose (Glutose) 22.5 gm Q15M PRN PO DECREASED GLUCOSE; Start 01/17/19 at 18:17 Dextrose (D50w Syringe) 25 ml Q15M PRN IV DECREASED GLUCOSE Last administered on 02/11/19at 18:27; Admin Dose 25 ML; Start 01/17/19 at 18:17 Dextrose (D50w Syringe) 50 ml Q15M PRN IV DECREASED GLUCOSE; Start 01/17/19 at 18:17 Glucagon (Glucagen) 1 mg Q15M PRN IM DECREASED GLUCOSE Last administered on 02/11/19at 17:55; Admin Dose 1 MG; Start 01/17/19 at 18:17 Glucose (Glutose) 15 gm Q15M PRN BUCCAL DECREASED GLUCOSE; Start 01/17/19 at 18:17 Ascorbic Acid (Vitamin C) 250 mg DAILY PO Last administered on 02/11/19at 09:01; Admin Dose 250 MG; Start 01/17/19 at 18:17 Bisacodyl (Dulcolax Supp) 10 mg DAILY PRN ND CONSTIPATION; Start 01/17/19 at 18 :17 Zinc Acetate/ Diphenhydramine (Benadryl 2% Cr) 1 applic Q6H PRN TOP ITCHING Last administered on 01/26/19at 07:54; Admin Dose 1 APPLIC; Start 01/19/19 at 16:37 IV Flush (NS 10 ml) 10 ml PRN PRN IV IV PROTOCOL; Start 01/20/19 at 14:30 Cyanocobalamin (Vitamin B12 Inj) 1,000 mcg Q7D IM Last administered on 02/10/19at 09:50; Admin Dose 1,000 MCG; Start 02/03/19 at 09:00 Metoprolol Tartrate (Lopressor) 5 mg Q4H PRN IV HR>110 Hold SBP<100; Start 01/26/19 at 14:30 Vancomycin HCl (Vanco Iv Per Pharmacy) VANCOMYCIN PER PHARMACY PER PROTOCOL XX ; Start 01/27/19 at 12:00 Enoxaparin Sodium (Lovenox) 60 mg DAILY SC Last administered on 02/03/19at 08:06; Admin Dose 60 MG; Start 01/28/19 at 09:00; Status Hold Atorvastatin Calcium (Lipitor) 40 mg QHS NGT Last administered on 02/11/19at 20:58; Admin Dose 40 MG; Start 01/28/19 at 21:00 Docusate Sodium (Colace Liquid Cup) 100 mg BID NGT ; Start 01/27/19 at 22:00; Status Hold Terazosin HCl (Hytrin) 10 mg HS NGT Last administered on 02/11/19 20:57; Admin Dose 10 MG; Start 01/28/19 at 21:00 Levothyroxine Sodium (Synthroid) 125 mcg BEFORE BREAKFAST NGT Last administered on 02/11/19 06:39; Admin Dose 125 MCG; Start 01/28/19 at 07:00 Ferrous Sulfate (Feosol Liquid Cup) 300 mg WITH MEALS GTB Last administered on 02/11/19 17:55; Admin Dose 300 MG; Start 01/28/19 at 11:30 Multivitamins (Multivitamin) 30 ml DAILY GTB Last administered on 02/11/19 09:02; Admin Dose 30 ML; Start 01/28/19 at 11:00 Diagnostic Test (Pha) (Accu-Chek) 1 ea Q4 XX Last administered on 02/11/19 17:49; Admin Dose 1 EA; Start 01/28/19 at 13:00 Nystatin/ Triamcinolone Acetonide (Mycolog Oint) 1 applic BID TOP Last administered on 02/11/19 20:48; Admin Dose 1 APPLIC; Start 01/28/19 at 22:30 Insulin Aspart (Novolog Insulin Pen) NOVOLOG *MILD* ALGORI... Q4 SC Last admin istered on 02/11/19 09:16; Admin Dose 1 UNIT; Start 01/29/19 at 05:00 Albuterol/ Ipratropium (Duoneb) 3 ml Q6HWA RESP THERAPY HHN Last administered on 02/12/19 07:45; Admin Dose 3 ML; Start 01/29/19 at 14:00 Epoetin Dae-epbx (RETACRIT(non-esrd)) 40,000 unit Mo@1700 SC Last administered on 02/10/19 18:06; Admin Dose 40,000 UNIT; Start 02/03/19 at 17:00 Insulin Glargine (Lantus) 10 units DAILY@2000 SC Last administered on 02/10/19 21:41; Admin Dose 10 UNITS; Start 01/31/19 at 20:00 Aztreonam 1 gm/ Dextrose 50 ml @ 100 mls/hr Q12 IVPB Last administered on 02/11/19 20:51; Admin Dose 100 MLS/HR; Start 02/03/19 at 21:00 Metoprolol Tartrate (Lopressor) 12.5 mg BID PO Last administered on 02/11/19 20:57; Admin Dose 12.5 MG; Start 02/05/19 at 21:00 Eye Lubricant (Refresh Plus) 1 drop QID BOTH EYES Last administered on 02/11/19 20:58; Admin Dose 1 DROP; Start 02/06/19 at 09:00 Eye Lubricant (Akwa Oint) 1 applic HS LEFT EYE Last administered on 02/11/19 20:48; Admin Dose 1 APPLIC; Start 02/06/19 at 21:00 Multi-Ingredient Ointment (Aquaphor Oint 52.5 Gm) 1 applic BID TOP Last ad ministered on 02/11/19 20:48; Admin Dose 1 APPLIC; Start 02/06/19 at 22:40 Lansoprazole (Prevacid) 30 mg BID@0600,1800 NGT Last administered on 02/12/19 05:36; Admin Dose 30 MG; Start 02/07/19 at 18:00 Tobramycin Sulfate/Sodium Chloride (Nilesh Inhal) 300 mg BID RESP THERAPY NEB Last administered on 02/12/19 07:46; Admin Dose 300 MG; Start 02/08/19 at 09:00 Morphine Sulfate (morphine) 0.5 mg Q4H PRN IV SEVERE PAIN LEVEL 7-10 Last administered on 02/10/19 18:18; Admin Dose 0.5 MG; Start 02/08/19 at 19:00 Vancomycin HCl 750 mg/Dextrose 250 ml @ 125 mls/hr Q72H IVPB Last administered on 02/09/19 22:56; Admin Dose 125 MLS/HR; Start 02/09/19 at 23:00 OREN MARSH M.D. February 12, 2019 09:25
--- NOTE | 2019-02-12 09:40 | PN ---
Date/Time of Note Date/Time of Note DATE: 02/12/19 TIME: 09:38 Assessment/Plan VTE Prophylaxis Risk score (from [facility])>0 risk: 8 SCD applied (from [facility]): No SCD contraindicated: low risk/ambulating Pharmacological prophylaxis: NA/contraindicated Pharm contraindication: low risk/ambulating Lines/Catheters IV Catheter Type (from [facility]): Central Line Central line still needed: Yes Urinary Cath still in place: Yes Reason Cath still needed: urinary retention Assessment/Plan Hospital Course Hospital Course # AMS likely due to stroke vs seizure, 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 Septic shock now on pressors likely secondary to pneumonia on levophed resolved # Hypothermia ? sepsis #. 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 Chronic renal failure likely secondary to sepsis, improved, normal creatinine #. Hypertension.currently hypotensive resolved # Impending respiratory failure # Anasarca # Hyperlipidemia. # Hypothyroidism. # Bilateral groin cellulitis more likely associated with mateus, patches in groin and axilla bilaterally. skin peeling # History of rheumatoid arthritis with joint deformities. # Diabetes type 2. # Hx of CABGx2, carotid stent #. Peripheral vascular disease. #. Chronic a.fib, now on lovenox #. right arm edema # Neoplasm per CT abdomen. 4.3 cm cystic lesion along the pancreas body, enlarged since 10/10/2012 (previously 2.4 cm). 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 # Possible allergic skin reaction ? drug present since admission> improved s/p biopsy/ Amrik Betancourt > limit results solar keratosis # hypoThermia #Hypernatremia vasiliy due to dehydration improving # metabolic alkalosis Plan - Na 150>feeding gentle d5w and FWF. waxing and waning neurologival course - Reinsert NG - FWF 250 Q4 -hold off ativan - sitter - nebs, BIPAP - GI consult> hold lovenox due to possible bleeding, iv ppi - DEC lasix to 20 due to uremia and hypernatremia - cw aztreonam/vanco/tobra IN d5w -c w keppra - cw lovenox 60 for afib> held today due to anemia ? ASA - GI and DVT prophylaxsis -oncology consul dr Lorenzo aware:he said Ca 19-9 is negative indicating unlikely malignant. This may be a pseudocyst or a precancerous pancreatic lesion. It has been growing in size but patient is asymptomatic. EUS with biopsy is recommended and can either be done inpatient or outpatient setting. The patient at this time is unlikely a candidate for a Whipple surgery however. -skin care - s/p skin biopsy pending results solar elastosis > will kemar derm input ,called office again Result Diagram: 02/12/19 0445 02/12/19 0420 Results 24hrs Laboratory Tests Test 02/11/19 12:56 02/11/19 17:45 02/11/19 17:46 02/11/19 18:19 Bedside Glucose 117 57 L 61 L 64 L Test 02/11/19 18:20 02/11/19 18:25 02/11/19 18:44 02/11/19 20:14 Bedside Glucose 66 L 66 L 185 109 Test 02/12/19 00:47 02/12/19 04:20 02/12/19 04:37 02/12/19 04:45 Bedside Glucose 84 102 Sodium Level 150 H Potassium Level 4.6 Chloride Level 116 H Carbon Dioxide Level 30 Anion Gap 4 L Blood Urea Nitrogen 91 H Creatinine 1.91 H Est Glomerular Filtrat Rate mL/min Glucose Level 87 Calcium Level 8.0 L Phosphorus Level 4.7 Magnesium Level 2.3 Total Bilirubin 0.3 Direct Bilirubin 0.00 Indirect Bilirubin 0.3 Aspartate Amino 23 Transf (AST/SGOT) Alanine 39 Aminotransferase (AL T/SGPT) Alkaline Phosphatase 80 Ammonia 13 Total Protein 4.0 L Albumin 1.7 L Globulin 2.30 Albumin/Globulin 0.73 Ratio White Blood Count 11.0 H Red Blood Count 2.46 L Hemoglobin 7.2 L Hematocrit 23.4 L Mean Corpuscular 95.1 Volume Mean Corpuscular 29.3 Hemoglobin Mean Corpuscular 30.8 L Hemoglobin Concent Red Cell 20.9 H Distribution Width Platelet Count 119 L Mean Platelet Volume 13.3 H Immature 0.500 H Granulocytes % Neutrophils % 77.9 H Lymphocytes % 17.7 Monocytes % 3.7 Eosinophils % 0.1 Basophils % 0.1 Nucleated Red Blood 0.8 H Cells % Immature 0.050 H Granulocytes # Neutrophils # 8.6 H Lymphocytes # 2.0 Monocytes # 0.4 Eosinophils # 0.0 Basophils # 0.0 Nucleated Red Blood 0.1 H Cells # Subjective 24 Hr Interval Summary Free Text/Dictation Patient has waxing and waning neurological course Mumbling at times 150 na and a BUN 91 Exam/Review of Systems Exam Vitals Vital Signs Date Temp Pulse Resp B/P (MAP) Pulse Ox O2 O2 Flow FiO2 Time Delivery Rate 02/12/19 85 09:21 02/12/19 100 6.0 07:46 02/12/19 25 Nasal 07:46 Cannula 02/12/19 109/44 05:30 (65) 02/12/19 98.1 04:00 02/12/19 30 01:08 Intake and Output 02/11/19 02/11/19 02/12/19 1515:00 23:00 07:00 IntakeIntake Total 820 ml 870 ml 680 ml OutputOutput Total 555 ml 420 ml 200 ml BalanceBalance 265 ml 450 ml 480 ml Exam Constitutional: alert, frail, opens eyes, tries to follow commands, resists response Head: normocephalic Neck: supple Cardiovascular: regular rate Dec breath sounds bases Gastrointestinal: soft skin peeling +edema rt arm>left arm Results Results 24hrs Laboratory Tests Test 02/11/19 12:56 02/11/19 17:45 02/11/19 17:46 02/11/19 18:19 Bedside Glucose 117 57 L 61 L 64 L Test 02/11/19 18:20 02/11/19 18:25 02/11/19 18:44 02/11/19 20:14 Bedside Glucose 66 L 66 L 185 109 Test 02/12/19 00:47 02/12/19 04:20 02/12/19 04:37 02/12/19 04:45 Bedside Glucose 84 102 Sodium Level 150 H Potassium Level 4.6 Chloride Level 116 H Carbon Dioxide Level 30 Anion Gap 4 L Blood Urea Nitrogen 91 H Creatinine 1.91 H Est Glomerular Filtrat Rate mL/min Glucose Level 87 Calcium Level 8.0 L Phosphorus Level 4.7 Magnesium Level 2.3 Total Bilirubin 0.3 Direct Bilirubin 0.00 Indirect Bilirubin 0.3 Aspartate Amino 23 Transf (AST/SGOT) Alanine 39 Aminotransferase (AL T/SGPT) Alkaline Phosphatase 80 Ammonia 13 Total Protein 4.0 L Albumin 1.7 L Globulin 2.30 Albumin/Globulin 0.73 Ratio White Blood Count 11.0 H Red Blood Count 2.46 L Hemoglobin 7.2 L Hematocrit 23.4 L Mean Corpuscular 95.1 Volume Mean Corpuscular 29.3 Hemoglobin Mean Corpuscular 30.8 L Hemoglobin Concent Red Cell 20.9 H Distribution Width Platelet Count 119 L Mean Platelet Volume 13.3 H Immature 0.500 H Granulocytes % Neutrophils % 77.9 H Lymphocytes % 17.7 Monocytes % 3.7 Eosinophils % 0.1 Basophils % 0.1 Nucleated Red Blood 0.8 H Cells % Immature 0.050 H Granulocytes # Neutrophils # 8.6 H Lymphocytes # 2.0 Monocytes # 0.4 Eosinophils # 0.0 Basophils # 0.0 Nucleated Red Blood 0.1 H Cells # Medications Medication Current Medications Lactulose (Enulose) 20 gm DAILY PRN PO CONSTIPATION; Start 01/17/19 at 18:17 Acetaminophen (Tylenol Tab) 650 mg Q4H PRN PO PAIN Last administered on 02/11/19at 21:29; Admin Dose 650 MG; Start 01/17/19 at 18:17 Miscellaneous Information (Pending [facility] Order For Wound Care) This patient ramirez... PRN PRN XX WOUND CARE; Start 01/17/19 at 18:17 Albuterol/ Ipratropium (Duoneb) 3 ml Q2H RESP THERAPY PRN HHN SHORTNESS OF BREATH Last administered on 02/07/19at 05:45; Admin Dose 3 ML; Start 01/17/19 at 18:17 Bisacodyl (Dulcolax) 10 mg BID PRN PO CONSTIPATION; Start 01/17/19 at 18:17; Status Hold Folic Acid (Folic Acid) 1 mg DAILY PO Last administered on 02/11/19at 09:02; Admin Dose 1 MG; Start 01/17/19 at 18:17 Latanoprost (Xalatan) 1 drop HS BOTH EYES Last administered on 02/11/19at 21:02; Admin Dose 1 DROP; Start 01/17/19 at 18:17 Nitroglycerin (Nitroglycerin (Sl Tab) 0.4 Mg) 0.4 tab Q5M PRN SL CHEST PAIN; Start 01/17/19 at 18:17 Nystatin (Nystatin Powder) 1 applic BID TOP Last administered on 02/11/19at 20:49; Admin Dose 1 APPLIC; Start 01/17/19 at 18:17 IV Flush (NS 3 ml) 3 ml PER PROTOCOL IV ; Start 01/17/19 at 18:17 Miscellaneous Information 1 ea NOTE XX ; Start 01/17/19 at 18:17 Glucose (Glutose) 15 gm Q15M PRN PO DECREASED GLUCOSE; Start 01/17/19 at 18:17 Glucose (Glutose) 22.5 gm Q15M PRN PO DECREASED GLUCOSE; Start 01/17/19 at 18:17 Dextrose (D50w Syringe) 25 ml Q15M PRN IV DECREASED GLUCOSE Last administered on 02/11/19at 18:27; Admin Dose 25 ML; Start 01/17/19 at 18:17 Dextrose (D50w Syringe) 50 ml Q15M PRN IV DECREASED GLUCOSE; Start 01/17/19 at 18:17 Glucagon (Glucagen) 1 mg Q15M PRN IM DECREASED GLUCOSE Last administered on 02/11/19at 17:55; Admin Dose 1 MG; Start 01/17/19 at 18:17 Glucose (Glutose) 15 gm Q15M PRN BUCCAL DECREASED GLUCOSE; Start 01/17/19 at 18:17 Ascorbic Acid (Vitamin C) 250 mg DAILY PO Last administered on 02/11/19at 09:01; Admin Dose 250 MG; Start 01/17/19 at 18:17 Bisacodyl (Dulcolax Supp) 10 mg DAILY PRN [place] CONSTIPATION; Start 01/17/19 at 18:17 Zinc Acetate/ Diphenhydramine (Benadryl 2% Cr) 1 applic Q6H PRN TOP ITCHING Last administered on 01/26/19at 07:54; Admin Dose 1 APPLIC; Start 01/19/19 at 16:37 IV Flush (NS 10 ml) 10 ml PRN PRN IV IV PROTOCOL; Start 01/20/19 at 14:30 Cyanocobalamin (Vitamin B12 Inj) 1,000 mcg Q7D IM Last administered on 02/10/19at 09:50; Admin Dose 1,000 MCG; Start 02/03/19 at 09:00 Metoprolol Tartrate (Lopressor) 5 mg Q4H PRN IV HR>110 Hold SBP<100; Start 01/26/19 at 14:30 Vancomycin HCl (Vanco Iv Per Pharmacy) VANCOMYCIN PER PHARMACY PER PROTOCOL XX ; Start 01/27/19 at 12:00 Enoxaparin Sodium (Lovenox) 60 mg DAILY SC Last administered on 02/03/19 08:06; Admin Dose 60 MG; Start 01/28/19 at 09:00; Status Hold Atorvastatin Calcium (Lipitor) 40 mg QHS NGT Last administered on 02/11/19 20: 58; Admin Dose 40 MG; Start 01/28/19 at 21:00 Docusate Sodium (Colace Liquid Cup) 100 mg BID NGT ; Start 01/27/19 at 22:00; Status Hold Terazosin HCl (Hytrin) 10 mg HS NGT Last administered on 02/11/19 20:57; Admin Dose 10 MG; Start 01/28/19 at 21:00 Levothyroxine Sodium (Synthroid) 125 mcg BEFORE BREAKFAST NGT Last administered on 02/11/19 06:39; Admin Dose 125 MCG; Start 01/28/19 at 07:00 Ferrous Sulfate (Feosol Liquid Cup) 300 mg WITH MEALS GTB Last administered on 02/11/19 17:55; Admin Dose 300 MG; Start 01/28/19 at 11:30 Multivitamins (Multivitamin) 30 ml DAILY GTB Last administered on 02/11/19 09:02; Admin Dose 30 ML; Start 01/28/19 at 11:00 Diagnostic Test (Pha) (Accu-Chek) 1 ea Q4 XX Last administered on 02/11/19 17:49; Admin Dose 1 EA; Start 01/28/19 at 13:00 Nystatin/ Triamcinolone Acetonide (Mycolog Oint) 1 applic BID TOP Last administered on 02/11/19 20:48; Admin Dose 1 APPLIC; Start 01/28/19 at 22:30 Insulin Aspart (Novolog Insulin Pen) NOVOLOG *MILD* ALGORI... Q4 SC Last administered on 02/11/19 09:16; Admin Dose 1 UNIT; Start 01/29/19 at 05:00 Albuterol/ Ipratropium (Duoneb) 3 ml Q6HWA RESP THERAPY HHN Last administered on 02/12/19 07:45; Admin Dose 3 ML; Start 01/29/19 at 14:00 Epoetin Dae-epbx (RETACRIT(non-esrd)) 40,000 unit Mo@1700 SC Last administered on 02/10/19 18:06; Admin Dose 40,000 UNIT; Start 02/03/19 at 17:00 Insulin Glargine (Lantus) 10 units DAILY@2000 SC Last administered on 02/10/19 21:41; Admin Dose 10 UNITS; Start 01/31/19 at 20:00 Aztreonam 1 gm/ Dextrose 50 ml @ 100 mls/hr Q12 IVPB Last administered on 02/11/19 20:51; Admin Dose 100 MLS/HR; Start 02/03/19 at 21:00 Metoprolol Tartrate (Lopressor) 12.5 mg BID PO Last administered on 02/11/19 20:57; Admin Dose 12.5 MG; Start 02/05/19 at 21:00 Eye Lubricant (Refresh Plus) 1 drop QID BOTH EYES Last administered on 02/11/19 20:58; Admin Dose 1 DROP; Start 02/06/19 at 09:00 Eye Lubricant (Akwa Oint) 1 applic HS LEFT EYE Last administered on 02/11/19 20:48; Admin Dose 1 APPLIC; Start 02/06/19 at 21:00 Multi-Ingredient Ointment (Aquaphor Oint 52.5 Gm) 1 applic BID TOP Last administered on 02/11/19 20:48; Admin Dose 1 APPLIC; Start 02/06/19 at 22:40 Lansoprazole (Prevacid) 30 mg BID@0600,1800 NGT Last administered on 02/12/19 05:36; Admin Dose 30 MG; Start 02/07/19 at 18:00 Tobramycin Sulfate/Sodium Chloride (Nilesh Inhal) 300 mg BID RESP THERAPY NEB Last administered on 02/12/19 07:46; Admin Dose 300 MG; Start 02/08/19 at 09:00 Morphine Sulfate (morphine) 0.5 mg Q4H PRN IV SEVERE PAIN LEVEL 7-10 Last administered on 02/10/19 18:18; Admin Dose 0.5 MG; Start 02/08/19 at 19:00 Vancomycin HCl 750 mg/Dextrose 250 ml @ 125 mls/hr Q72H IVPB Last administered on 02/09/19 22:56; Admin Dose 125 MLS/HR; Start 02/09/19 at 23:00 Dextrose 1,000 ml @ 40 mls/hr Q24H IV ; Start 02/12/19 at 10:00; Status UNV IVAN AKHTAR MD February 12, 2019 09:40
[2019-02-12] MEDS ORDERED: FUROSEMIDE 20 MG INJ IV SCH (10:00)
[2019-02-12] MEDS ORDERED: DEXTROSE 5% 500 ML IV ONE (10:00)
[2019-02-12] MEDS: AZTREONAM 1 GM in DEXTROSE 5% 50 ML IVPB SCH ×2 (11:50→20:58)
--- NOTE | 2019-02-12 11:52 | CONS ---
Consult Date/Type/Reason Admit Date/Time Jan 17, 2019 at 15:58 Initial Consult Date 01/18/19 Type of Consult Pulmonary Requesting Provider: IVAN AKHTAR MD Date/Time of Note DATE: 02/12/19 TIME: 11:51 Subjective Transfer to telemetry this morning no respiratory distress. Intermittent agitation. Chest x-ray shows ongoing volume overload and pulmonary edema. Objective Vital Signs Date Temp Pulse Resp B/P (MAP) Pulse Ox O2 O2 Flow FiO2 Time Delivery Rate 02/12/19 98.6 91 20 104/51 98 11:22 (68) 02/12/19 6.0 07:46 02/12/19 Nasal 07:46 Cannula 02/12/19 30 01:08 Intake and Output 02/11/19 02/11/19 02/12/19 1414:59 22:59 06:59 IntakeIntake Total 780 ml 870 ml 720 ml OutputOutput Total 475 ml 470 ml 230 ml BalanceBalance 305 ml 400 ml 490 ml Exam GENERAL: Frail elderly gentleman comfortable at rest on nasal cannula oxygen VITAL SIGNS: per chart NECK: Supple. No JVD or lymphadenopathy. CARDIAC EXAM: S1, S2. No added sounds or murmurs. CHEST: Diminished air entry both bases ABDOMEN: Soft, nontender. No guarding or rebound. EXTREMITIES: No cyanosis, clubbing edema +2 NEUROLOGIC: Generalized weakness Vent Setting Ventilator Support Mode: AC Fraction of Inspired Oxygen pe: 70 Positive End Expiratory Pressu: 5.0 Results/Medications Result Diagram: 02/12/19 0445 02/12/19 0420 Results 24 hrs Laboratory Tests Test 02/11/19 12:56 02/11/19 17:45 02/11/19 17:46 02/11/19 18:19 Bedside Glucose 117 57 L 61 L 64 L Test 02/11/19 18:20 02/11/19 18:25 02/11/19 18:44 02/11/19 20:14 Bedside Glucose 66 L 66 L 185 109 Test 02/12/19 00:47 02/12/19 04:20 02/12/19 04:37 02/12/19 04:45 Bedside Glucose 84 102 Sodium Level 150 H Potassium Level 4.6 Chloride Level 116 H Carbon Dioxide Level 30 Anion Gap 4 L Blood Urea Nitrogen 91 H Creatinine 1.91 H Est Glomerular Filtrat Rate mL/min Glucose Level 87 Calcium Level 8.0 L Phosphorus Level 4.7 Magnesium Level 2.3 Iron Level 12 L Total Iron Binding 134 L Capacity Percent Iron 9 L Saturation Total Bilirubin 0.3 Direct Bilirubin 0.00 Indirect Bilirubin 0.3 Aspartate Amino 23 Transf (AST/SGOT) Alanine 39 Aminotransferase (AL T/SGPT) Alkaline Phosphatase 80 Ammonia 13 Total Protein 4.0 L Albumin 1.7 L Globulin 2.30 Albumin/Globulin 0.73 Ratio White Blood Count 11.0 H Red Blood Count 2.46 L Hemoglobin 7.2 L Hematocrit 23.4 L Mean Corpuscular 95.1 Volume Mean Corpuscular 29.3 Hemoglobin Mean Corpuscular 30.8 L Hemoglobin Concent Red Cell 20.9 H Distribution Width Platelet Count 119 L Mean Platelet Volume 13.3 H Immature 0.500 H Granulocytes % Neutrophils % 77.9 H Lymphocytes % 17.7 Monocytes % 3.7 Eosinophils % 0.1 Basophils % 0.1 Nucleated Red Blood 0.8 H Cells % Immature 0.050 H Granulocytes # Neutrophils # 8.6 H Lymphocytes # 2.0 Monocytes # 0.4 Eosinophils # 0.0 Basophils # 0.0 Nucleated Red Blood 0.1 H Cells # Test 02/12/19 10:56 Bedside Glucose 86 Medications Current Medications Lactulose (Enulose) 20 gm DAILY PRN PO CONSTIPATION; Start 01/17/19 at 18:17 Acetaminophen (Tylenol Tab) 650 mg Q4H PRN PO PAIN Last administered on 02/11/19at 21:29; Admin Dose 650 MG; Start 01/17/19 at 18:17 Miscellaneous Information (Pending [facility] Order For Wound Care) This patient ramirez... PRN PRN XX WOUND CARE; Start 01/17/19 at 18:17 Albuterol/ Ipratropium (Duoneb) 3 ml Q2H RESP THERAPY PRN HHN SHORTNESS OF BREATH Last administered on 02/07/19at 05:45; Admin Dose 3 ML; Start 01/17/19 at 18:17 Bisacodyl (Dulcolax) 10 mg BID PRN PO CONSTIPATION; Start 01/17/19 at 18:17; Status Hold Folic Acid (Folic Acid) 1 mg DAILY PO Last administered on 02/11/19at 09:02; Admin Dose 1 MG; Start 01/17/19 at 18:17 Latanoprost (Xalatan) 1 drop HS BOTH EYES Last administered on 02/11/19at 21:02; Admin Dose 1 DROP; Start 01/17/19 at 18:17 Nitroglycerin (Nitroglycerin (Sl Tab) 0.4 Mg) 0.4 tab Q5M PRN SL CHEST PAIN; Start 01/17/19 at 18:17 Nystatin (Nystatin Powder) 1 applic BID TOP Last administered on 02/11/19at 20:49; Admin Dose 1 APPLIC; Start 01/17/19 at 18:17 IV Flush (NS 3 ml) 3 ml PER PROTOCOL IV ; Start 01/17/19 at 18:17 Miscellaneous Information 1 ea NOTE XX ; Start 01/17/19 at 18:17 Glucose (Glutose) 15 gm Q15M PRN PO DECREASED GLUCOSE; Start 01/17/19 at 18:17 Glucose (Glutose) 22.5 gm Q15M PRN PO DECREASED GLUCOSE; Start 01/17/19 at 18:17 Dextrose (D50w Syringe) 25 ml Q15M PRN IV DECREASED GLUCOSE Last administered on 02/11/19at 18:27; Admin Dose 25 ML; Start 01/17/19 at 18:17 Dextrose (D50w Syringe) 50 ml Q15M PRN IV DECREASED GLUCOSE; Start 01/17/19 at 18:17 Glucagon (Glucagen) 1 mg Q15M PRN IM DECREASED GLUCOSE Last administered on 02/11/19at 17:55; Admin Dose 1 MG; Start 01/17/19 at 18:17 Glucose (Glutose) 15 gm Q15M PRN BUCCAL DECREASED GLUCOSE; Start 01/17/19 at 18:17 Ascorbic Acid (Vitamin C) 250 mg DAILY PO Last administered on 02/11/19at 09:01; Admin Dose 250 MG; Start 01/17/19 at 18:17 Bisacodyl (Dulcolax Supp) 10 mg DAILY PRN [place] CONSTIPATION; Start 01/17/19 at 18:17 Zinc Acetate/ Diphenhydramine (Benadryl 2% Cr) 1 applic Q6H PRN TOP ITCHING Last administered on 01/26/19at 07:54; Admin Dose 1 APPLIC; Start 01/19/19 at 16:37 IV Flush (NS 10 ml) 10 ml PRN PRN IV IV PROTOCOL; Start 01/20/19 at 14:30 Cyanocobalamin (Vitamin B12 Inj) 1,000 mcg Q7D IM Last administered on 02/10/19 09:50; Admin Dose 1,000 MCG; Start 02/03/19 at 09:00 Metoprolol Tartrate (Lopressor) 5 mg Q4H PRN IV HR>110 Hold SBP<100; Start 01/26/19 at 14:30 Vancomycin HCl (Vanco Iv Per Pharmacy) VANCOMYCIN PER PHARMACY PER PROTOCOL XX ; Start 01/27/19 at 12:00 Enoxaparin Sodium (Lovenox) 60 mg DAILY SC Last administered on 02/03/19 08:06; Admin Dose 60 MG; Start 01/28/19 at 09:00; Status Hold Atorvastatin Calcium (Lipitor) 40 mg QHS NGT Last administered on 02/11/19 20:58; Admin Dose 40 MG; Start 01/28/19 at 21:00 Docusate Sodium (Colace Liquid Cup) 100 mg BID NGT ; Start 01/27/19 at 22:00; Status Hold Terazosin HCl (Hytrin) 10 mg HS NGT Last administered on 02/11/19 20:57; Admin Dose 10 MG; Start 01/28/19 at 21:00 Levothyroxine Sodium (Synthroid) 125 mcg BEFORE BREAKFAST NGT Last administered on 02/11/19 06:39; Admin Dose 125 MCG; Start 01/28/19 at 07:00 Ferrous Sulfate (Feosol Liquid Cup) 300 mg WITH MEALS GTB Last administered on 02/11/19 17:55; Admin Dose 300 MG; Start 01/28/19 at 11:30 Multivitamins (Multivitamin) 30 ml DAILY GTB Last administered on 02/11/19 09:02; Admin Dose 30 ML; Start 01/28/19 at 11:00 Diagnostic Test (Pha) (Accu-Chek) 1 ea Q4 XX Last administered on 02/11/19 17:49; Admin Dose 1 EA; Start 01/28/19 at 13:00 Nystatin/ Triamcinolone Acetonide (Mycolog Oint) 1 applic BID TOP Last administered on 02/11/19 20:48; Admin Dose 1 APPLIC; Start 01/28/19 at 22:30 Insulin Aspart (Novolog Insulin Pen) NOVOLOG *MILD* ALGORI... Q4 SC Last administered on 02/11/19 09:16; Admin Dose 1 UNIT; Start 01/29/19 at 05:00 Albuterol/ Ipratropium (Duoneb) 3 ml Q6HWA RESP THERAPY HHN Last administered on 02/12/19 07:45; Admin Dose 3 ML; Start 01/29/19 at 14:00 Epoetin Dae-epbx (RETACRIT(non-esrd)) 40,000 unit Mo@1700 SC Last administered on 02/10/19 18:06; Admin Dose 40,000 UNIT; Start 02/03/19 at 17:00 Insulin Glargine (Lantus) 10 units DAILY@2000 SC Last administered on 02/10/19 21:41; Admin Dose 10 UNITS; Start 01/31/19 at 20:00 Aztreonam 1 gm/ Dextrose 50 ml @ 100 mls/hr Q12 IVPB Last administered on 02/11/19 20:51; Admin Dose 100 MLS/HR; Start 02/03/19 at 21:00 Metoprolol Tartrate (Lopressor) 12.5 mg BID PO Last administered on 02/11/19 20:57; Admin Dose 12.5 MG; Start 02/05/19 at 21:00 Eye Lubricant (Refresh Plus) 1 drop QID BOTH EYES Last administered on 02/11/19 20:58; Admin Dose 1 DROP; Start 02/06/19 at 09:00 Eye Lubricant (Akwa Oint) 1 applic HS LEFT EYE Last administered on 02/11/19 20:48; Admin Dose 1 APPLIC; Start 02/06/19 at 21:00 Multi-Ingredient Ointment (Aquaphor Oint 52.5 Gm) 1 applic BID TOP Last administered on 02/11/19 20:48; Admin Dose 1 APPLIC; Start 02/06/19 at 22:40 Lansoprazole (Prevacid) 30 mg BID@0600,1800 NGT Last administered on 02/12/19 05:36; Admin Dose 30 MG; Start 02/07/19 at 18:00 Tobramycin Sulfate/Sodium Chloride (Nilesh Inhal) 300 mg BID RESP THERAPY NEB Last administered on 02/12/19 07:46; Admin Dose 300 MG; Start 02/08/19 at 09:00 Morphine Sulfate (morphine) 0.5 mg Q4H PRN IV SEVERE PAIN LEVEL 7-10 Last administered on 02/10/19at 18:18; Admin Dose 0.5 MG; Start 02/08/19 at 19:00 Vancomycin HCl 750 mg/Dextrose 250 ml @ 125 mls/hr Q72H IVPB Last administered on 02/09/19at 22:56; Admin Dose 125 MLS/HR; Start 02/09/19 at 23:00 Dextrose 500 ml @ 40 mls/hr [id number] ONCE IV ; Start 02/12/19 at 10:00; Stop 02/12/19 at 22:29 Furosemide (Lasix) 20 mg DAILY IV ; Start 02/12/19 at 10:00 Assessment/Plan Hospital Course (Demo Recall) IMP: 1. s/p Acute hypoxemic respiratory failure likely secondary to combination of volume overload and pneumonia, now requiring bilevel ventilation again. 2. Encephalopathy underlying dementia versus toxic metabolic, appears to be slowly improving possibly secondary to elevated sodium. 3. Valvular heart disease 4. Severe dysphagia 5. Status post septic shock likely secondary to above, persistent leukocytosis. 6. Anemia, no active GI bleeding 7. Skin diffuse excoriating skin lesion unclear etiology not consistent with history of "red man" syndrome. or pemphigus. Likely drug reaction. 8. Anemia RECS: 1. Monitor respiratory status closely. 2. Continue broad-spectrum antibiotics 3. Infectious work-up as per ID 4. Monitor H&H 5. Palliative care consult appreciated 6. Electrolytes per nephrology. 7. Trial off bilevel ventilation, aspiration precautions elevation of head of bed Overall prognosis remains guarded Palliative care recommendations DIANA MCRAE MD, [facility] February 12, 2019 11:52
[2019-02-12] MEDS: CARBOXYMETHYLCELLULOSE 0.5% 0.4 ML OPH BOTH EYES SCH ×4 (12:03→20:58)
--- NOTE | 2019-02-12 12:09 | CONS ---
Assessment/Plan Assessment/Plan Hospital Course 88 yo M with multiple comorbidities who initially presented for evaluation of hiccups. He was noted to become acutely altered... for which neurology is consulted. He has been transferred to the ICU on several occasions due to ams in the context of respiratory distress and ? seizures.. The clinical picture suggests an acute toxic-metabolic encephalopathy.. Meningoencephalitis is, though, not entirely excluded. MRI brain is without acute ischemia, though notable for chronic infarcts. EEG was without ongoing epileptiform activity LP for CSF valuation was declined by medical decision makers. P: OK to Cont Keppra 500 BID for now Ativan IV PRN prolonged seizure (> 5 min) Agree w/ ASA/Lipitor daily pending the above Limit sedating medications where possible Other medical management per primary Will follow Consultation Date/Type/Reason Admit Date/Time Jan 17, 2019 at 15:58 Type of Consult Neurology Reason for Consultation ams; eval for stroke Requesting Provider: IVAN AKHTAR MD Date/Time of Note DATE: 02/12/19 TIME: 12:09 24 HR Interval Summary Free Text/Dictation Continues acute care. Transferred back to telemetry. Exam Vital Signs Vitals Vital Signs Date Temp Pulse Resp B/P (MAP) Pulse Ox O2 O2 Flow FiO2 Time Delivery Rate 02/12/19 98.6 91 20 104/51 98 11:22 (68) 02/12/19 6.0 07:46 02/12/19 Nasal 07:46 Cannula 02/12/19 30 01:08 Intake and Output 02/11/19 02/11/19 02/12/19 1515:00 23:00 07:00 IntakeIntake Total 820 ml 870 ml 680 ml OutputOutput Total 555 ml 420 ml 200 ml BalanceBalance 265 ml 450 ml 480 ml Exam PE: Gen Appearance: No Apparent Distress HEENT: Normocephalic; on nasal cannula Cardiovascular: Regular rate Abdomen: Soft Extremities: Dry, skin peeling NE: The patient was asleep, though arousable. Sparsely verbal. Unable to track. Follows simple appendicular commands. Cranial nerve examination was limited by mental status. Pupils were equal and reactive to light. There was no afferent pupillary defect. Funduscopic examination was limited. Face was grossly symmetric. Tone was normal. Muscle bulk was normal. I did not see fasciculations. The patient was generally weak. Coordination and gait testing was limited by mental status. Arm and leg reflexes were within normal limits and symmetric. Gray's sign was absent. Plantar responses were flexor. NEGRA CORONA NP February 12, 2019 12:09
--- NOTE | 2019-02-12 12:18 | CONS ---
Assessment/Plan Assessment/Plan Assessment/Plan (Daily) Assessment/Plan (Daily) But with patient's daughter this morning who intubated that she is changed her mind and so far as patient's CODE STATUS. She will be here after 4:00 have given my cell phone number in the meantime we will try some save atypical anxiolytics to try and control patient's behavior. 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 malnutrition debility Exam/Review of Systems Exam Vitals Vital Signs Date Temp Pulse Resp B/P (MAP) Pulse Ox O2 O2 Flow FiO2 Time Delivery Rate 02/12/19 53 08:00 02/12/19 18 93/56 (68) 97 Mechanical 06:00 Ventilator 02/12/19 96.0 04:00 02/11/19 30 20:00 Intake and Output 02/11/19 02/11/19 02/12/19 1515:00 23:00 07:00 IntakeIntake Total 900.4 ml 901.6 ml 632.2 ml OutputOutput Total 400 ml 495 ml 470 ml BalanceBalance 500.4 ml 406.6 ml 162.2 ml Psych: anxiety (Screaming out not moaning and groaning, cranial nerves grossly intact does not follow simple commands incomprehensible speech moving all 4 extremities) Results Result Diagram: 02/12/19 0400 02/12/19 0400 Results 24hrs Laboratory Tests Test 02/12/19 04:00 White Blood Count 11.2 H Red Blood Count 3.04 L Hemoglobin 8.4 L Hematocrit 25.7 L Mean Corpuscular Volume 84.5 Mean Corpuscular Hemoglobin 27.6 L Mean Corpuscular Hemoglobin Concent 32.7 Red Cell Distribution Width 21.2 H Platelet Count 152 Mean Platelet Volume 11.6 H Immature Granulocytes % 0.400 Neutrophils % 84.6 H Lymphocytes % 8.6 L Monocytes % 4.5 Eosinophils % 1.8 Basophils % 0.1 Nucleated Red Blood Cells % 0.0 Immature Granulocytes # 0.040 H Neutrophils # 9.5 H Lymphocytes # 1.0 Monocytes # 0.5 Eosinophils # 0.2 Basophils # 0.0 Nucleated Red Blood Cells # 0.0 Sodium Level 141 Potassium Level 3.9 Chloride Level 114 H Carbon Dioxide Level 21 Anion Gap 6 Blood Urea Nitrogen 47 H Creatinine 1.25 H Est Glomerular Filtrat Rate mL/min > 60 Glucose Level 115 Calcium Level 9.3 Phosphorus Level 3.0 Magnesium Level 1.7 Medications Medication Current Medications IV Flush (NS 3 ml) 3 ml PER PROTOCOL IV ; Start 02/03/19 at 17:30 Ondansetron HCl (Zofran Inj) 4 mg Q6H PRN IV NAUSEA/VOMITING; Start 02/03/19 at 17:30 Famotidine (Pepcid Iv) 20 mg DAILY IV Last administered on 02/12/19 08:45; Admin Dose 20 MG; Start 02/03/19 at 18:00 Norepinephrine 250 ml @ 1.875 mls/ hr TITRATE IV Last administered on 02/08/19 06:40; Admin Dose 1.875 MLS/HR; Start 02/03/19 at 19:30 Levetiracetam 100 ml @ 400 mls/hr Q12 IVPB Last administered on 02/12/19 08:13; Admin Dose 400 MLS/HR; Start 02/04/19 at 10:00 Lorazepam (Ativan) 1 mg Q10MIN PRN IV SEIZURES Last administered on 02/04/19 10:52; Admin Dose 1 MG; Start 02/04/19 at 10:00 Zinc Sulfate (Zinc Sulfate) 220 mg DAILY GTB Last administered on 02/12/19 08:41; Admin Dose 220 MG; Start 02/05/19 at 09:00 Multivitamins (Multivitamin) 30 ml DAILY GTB Last administered on 02/12/19 08:41; Admin Dose 30 ML; Start 02/05/19 at 09:00 Ascorbic Acid (Vitamin C) 500 mg DAILY GTB Last administered on 02/12/19 08:40; Admin Dose 500 MG; Start 02/05/19 at 09:00 Aspirin (Aspirin) 81 mg DAILY PO Last administered on 02/12/19 08:41; Admin Dose 81 MG; Start 02/05/19 at 09:00 Sodium Hypochlorite (Dakins Diluted (40)) 1 applic BID TP Last administered on 02/12/19 08:42; Admin Dose 1 APPLIC; Start 02/05/19 at 09:00 Heparin Sodium (Porcine) (Heparin (5000 Units/1ml)) 5,000 unit BID SC Last administered on 02/12/19 08:44; Admin Dose 5,000 UNIT; Start 02/06/19 at 09:00 Dopamine HCl/ Dextrose 250 ml @ 4.403 mls/ hr TITRATE IV Last administered on 02/11/19 15:14; Admin Dose 8.805 MLS/HR; Start 02/06/19 at 03:00 Mupirocin (Bactroban) 1 applic BID TOP Last administered on 02/12/19 08:42; Admin Dose 1 APPLIC; Start 02/06/19 at 21:00 Ferric Sodium Gluconate Complex 125 mg/Sodium Chloride 110 ml @ 110 mls/hr ROBERT Y@1300 IVPB Last administered on 02/11/19 12:59; Admin Dose 110 MLS/HR; Start 02/08/19 at 13:00; Stop 02/12/19 at 13:59 Doxycycline Hyclate 100 mg/ Sodium Chloride 250 ml @ 250 mls/hr Q12 IVPB Last administered on 02/12/19 08:13; Admin Dose 250 MLS/HR; Start 02/09/19 at 21:00 Fluconazole (Diflucan) 100 mg DAILY PO Last administered on 02/12/19 08:41; Admin Dose 100 MG; Start 02/09/19 at 15:00 Colistimethate Sodium 100 mg/ Sodium Chloride 100 ml @ 200 mls/hr Q24H IVPB Last administered on 02/12/19 08:15; Admin Dose 200 MLS/HR; Start 02/12/19 at 09:00 MARGARITO WILSON February 12, 2019 10:08 Consultation Date/Type/Reason Admit Date/Time Jan 17, 2019 at 15:58 Initial Consult Date 01/18/19 Requesting Provider: IVAN AKHTAR MD Date/Time of Note DATE: 02/12/19 TIME: 12:17 Exam/Review of Systems Exam Vitals Vital Signs Date Temp Pulse Resp B/P (MAP) Pulse Ox O2 O2 Flow FiO2 Time Delivery Rate 02/12/19 98.6 91 20 104/51 98 11:22 (68) 02/12/19 6.0 07:46 02/12/19 Nasal 07:46 Cannula 02/12/19 30 01:08 Intake and Output 02/11/19 02/11/19 02/12/19 1414:59 22:59 06:59 IntakeIntake Total 780 ml 870 ml 720 ml OutputOutput Total 475 ml 470 ml 230 ml BalanceBalance 305 ml 400 ml 490 ml Results Result Diagram: 02/12/19 0445 02/12/19 0420 Results 24hrs Laboratory Tests Test 02/11/19 12:56 02/11/19 17:45 02/11/19 17:46 02/11/19 18:19 Bedside Glucose 117 57 L 61 L 64 L Test 02/11/19 18:20 02/11/19 18:25 02/11/19 18:44 02/11/19 20:14 Bedside Glucose 66 L 66 L 185 109 Test 02/12/19 00:47 02/12/19 04:20 02/12/19 04:37 02/12/19 04:45 Bedside Glucose 84 102 Sodium Level 150 H Potassium Level 4.6 Chloride Level 116 H Carbon Dioxide Level 30 Anion Gap 4 L Blood Urea Nitrogen 91 H Creatinine 1.91 H Est Glomerular Filtrat Rate mL/min Glucose Level 87 Calcium Level 8.0 L Phosphorus Level 4.7 Magnesium Level 2.3 Iron Level 12 L Total Iron Binding 134 L Capacity Percent Iron 9 L Saturation Total Bilirubin 0.3 Direct Bilirubin 0.00 Indirect Bilirubin 0.3 Aspartate Amino 23 Transf (AST/SGOT) Alanine 39 Aminotransferase (AL T/SGPT) Alkaline Phosphatase 80 Ammonia 13 Total Protein 4.0 L Albumin 1.7 L Globulin 2.30 Albumin/Globulin 0.73 Ratio White Blood Count 11.0 H Red Blood Count 2.46 L Hemoglobin 7.2 L Hematocrit 23.4 L Mean Corpuscular 95.1 Volume Mean Corpuscular 29.3 Hemoglobin Mean Corpuscular 30.8 L Hemoglobin Concent Red Cell 20.9 H Distribution Width Platelet Count 119 L Mean Platelet Volume 13.3 H Immature 0.500 H Granulocytes % Neutrophils % 77.9 H Lymphocytes % 17.7 Monocytes % 3.7 Eosinophils % 0.1 Basophils % 0.1 Nucleated Red Blood 0.8 H Cells % Immature 0.050 H Granulocytes # Neutrophils # 8.6 H Lymphocytes # 2.0 Monocytes # 0.4 Eosinophils # 0.0 Basophils # 0.0 Nucleated Red Blood 0.1 H Cells # Test 02/12/19 10:56 Bedside Glucose 86 Medications Medication Current Medications Lactulose (Enulose) 20 gm DAILY PRN PO CONSTIPATION; Start 01/17/19 at 18:17 Acetaminophen (Tylenol Tab) 650 mg Q4H PRN PO PAIN Last administered on 02/11/19at 21:29; Admin Dose 650 MG; Start 01/17/19 at 18:17 [facility]iscellaneous Information [facility] This patient ramirez... PRN PRN XX WOUND CARE; Start 01/17/19 at 18:17 Albuterol/ Ipratropium (Duoneb) 3 ml Q2H RESP THERAPY PRN HHN SHORTNESS OF BREATH Last administered on 02/07/19at 05:45; Admin Dose 3 ML; Start 01/17/19 at 18:17 Bisacodyl (Dulcolax) 10 mg BID PRN PO CONSTIPATION; Start 01/17/19 at 18:17; Status Hold Folic Acid (Folic Acid) 1 mg DAILY PO Last administered on 02/11/19at 09:02; Admin Dose 1 MG; Start 01/17/19 at 18:17 Latanoprost (Xalatan) 1 drop HS BOTH EYES Last administered on 02/11/19at 21:02; Admin Dose 1 DROP; Start 01/17/19 at 18:17 Nitroglycerin (Nitroglycerin (Sl Tab) 0.4 Mg) 0.4 tab Q5M PRN SL CHEST PAIN; Start 01/17/19 at 18:17 Nystatin (Nystatin Powder) 1 applic BID TOP Last administered on 02/11/19at 20:49; Admin Dose 1 APPLIC; Start 01/17/19 at 18:17 IV Flush (NS 3 ml) 3 ml PER PROTOCOL IV ; Start 01/17/19 at 18:17 Miscellaneous Information 1 ea NOTE XX ; Start 01/17/19 at 18:17 Glucose (Glutose) 15 gm Q15M PRN PO DECREASED GLUCOSE; Start 01/17/19 at 18:17 Glucose (Glutose) 22.5 gm Q15M PRN PO DECREASED GLUCOSE; Start 01/17/19 at 18:17 Dextrose (D50w Syringe) 25 ml Q15M PRN IV DECREASED GLUCOSE Last administered on 02/11/19at 18:27; Admin Dose 25 ML; Start 01/17/19 at 18:17 Dextrose (D50w Syringe) 50 ml Q15M PRN IV DECREASED GLUCOSE; Start 01/17/19 at 18:17 Glucagon (Glucagen) 1 mg Q15M PRN IM DECREASED GLUCOSE Last administered on 02/11/19at 17:55; Admin Dose 1 MG; Start 01/17/19 at 18:17 Glucose (Glutose) 15 gm Q15M PRN BUCCAL DECREASED GLUCOSE; Start 01/17/19 at 18:17 Ascorbic Acid (Vitamin C) 250 mg DAILY PO Last administered on 02/11/19at 09:01; Admin Dose 250 MG; Start 01/17/19 at 18:17 Bisacodyl (Dulcolax Supp) 10 mg DAILY PRN HI CONSTIPATION; Start 01/17/19 at 18:17 Zinc Acetate/ Diphenhydramine (Benadryl 2% Cr) 1 applic Q6H PRN TOP ITCHING Last administered on 01/26/19at 07:54; Admin Dose 1 APPLIC; Start 01/19/19 at 16: 37 IV Flush (NS 10 ml) 10 ml PRN PRN IV IV PROTOCOL; Start 01/20/19 at 14:30 Cyanocobalamin (Vitamin B12 Inj) 1,000 mcg Q7D IM Last administered on 02/10/19at 09:50; Admin Dose 1,000 MCG; Start 02/03/19 at 09:00 Metoprolol Tartrate (Lopressor) 5 mg Q4H PRN IV HR>110 Hold SBP<100; Start 01/26/19 at 14:30 Vancomycin HCl (Vanco Iv Per Pharmacy) VANCOMYCIN PER PHARMACY PER PROTOCOL XX ; Start 01/27/19 at 12:00 Enoxaparin Sodium (Lovenox) 60 mg DAILY SC Last administered on 02/03/19at 08:06; Admin Dose 60 MG; Start 01/28/19 at 09:00; Status Hold Atorvastatin Calcium (Lipitor) 40 mg QHS NGT Last administered on 02/11/19at 20:58; Admin Dose 40 MG; Start 01/28/19 at 21:00 Docusate Sodium (Colace Liquid Cup) 100 mg BID NGT ; Start 01/27/19 at 22:00; Status Hold Terazosin HCl (Hytrin) 10 mg HS NGT Last administered on 02/11/19 20:57; Admin Dose 10 MG; Start 01/28/19 at 21:00 Levothyroxine Sodium (Synthroid) 125 mcg BEFORE BREAKFAST NGT Last administered on 02/11/19 06:39; Admin Dose 125 MCG; Start 01/28/19 at 07:00 Ferrous Sulfate (Feosol Liquid Cup) 300 mg WITH MEALS GTB Last administered on 02/11/19 17:55; Admin Dose 300 MG; Start 01/28/19 at 11:30 Multivitamins (Multivitamin) 30 ml DAILY GTB Last administered on 02/11/19 09:02; Admin Dose 30 ML; Start 01/28/19 at 11:00 Diagnostic Test (Pha) (Accu-Chek) 1 ea Q4 XX Last administered on 02/12/19 09:00; Admin Dose 1 EA; Start 01/28/19 at 13:00 Nystatin/ Triamcinolone Acetonide (Mycolog Oint) 1 applic BID TOP Last administered on 02/11/19 20:48; Admin Dose 1 APPLIC; Start 01/28/19 at 22:30 Insulin Aspart (Novolog Insulin Pen) NOVOLOG *MILD* ALGORI... Q4 SC Last administered on 02/11/19 09:16; Admin Dose 1 UNIT; Start 01/29/19 at 05:00 Albuterol/ Ipratropium (Duoneb) 3 ml Q6HWA RESP THERAPY HHN Last administered on 02/12/19 07:45; Admin Dose 3 ML; Start 01/29/19 at 14:00 Epoetin Dae-epbx (RETACRIT(non-esrd)) 40,000 unit Mo@1700 SC Last administered on 02/10/19 18:06; Admin Dose 40,000 UNIT; Start 02/03/19 at 17:00 Insulin Glargine (Lantus) 10 units DAILY@2000 SC Last administered on 02/10/19 21:41; Admin Dose 10 UNITS; Start 01/31/19 at 20:00 Aztreonam 1 gm/ Dextrose 50 ml @ 100 mls/hr Q12 IVPB Last administered on 02/12/19 11:50; Admin Dose 100 MLS/HR; Start 02/03/19 at 21:00 Metoprolol Tartrate (Lopressor) 12.5 mg BID PO Last administered on 02/11/19 20:57; Admin Dose 12.5 MG; Start 02/05/19 at 21:00 Eye Lubricant (Refresh Plus) 1 drop QID BOTH EYES Last administered on 02/12/19 12:03; Admin Dose 1 DROP; Start 02/06/19 at 09:00 Eye Lubricant (Akwa Oint) 1 applic HS LEFT EYE Last administered on 02/11/19 20:48; Admin Dose 1 APPLIC; Start 02/06/19 at 21:00 Multi-Ingredient Ointment (Aquaphor Oint 52.5 Gm) 1 applic BID TOP Last administered on 02/11/19 20:48; Admin Dose 1 APPLIC; Start 02/06/19 at 22:40 Lansoprazole (Prevacid) 30 mg BID@0600,1800 NGT Last administered on 02/12/19 05:36; Admin Dose 30 MG; Start 02/07/19 at 18:00 Tobramycin Sulfate/Sodium Chloride (Nilesh Inhal) 300 mg BID RESP THERAPY NEB Last administered on 02/12/19 07:46; Admin Dose 300 MG; Start 02/08/19 at 09:00 Morphine Sulfate (morphine) 0.5 mg Q4H PRN IV SEVERE PAIN LEVEL 7-10 Last administered on 02/10/19 18:18; Admin Dose 0.5 MG; Start 02/08/19 at 19:00 Vancomycin HCl 750 mg/Dextrose 250 ml @ 125 mls/hr Q72H IVPB Last administered on 02/09/19 22:56; Admin Dose 125 MLS/HR; Start 02/09/19 at 23:00 Dextrose 500 ml @ 40 mls/hr [id number] ONCE IV Last administered on 02/12/19 10:00; Admin Dose 40 MLS/HR; Start 02/12/19 at 10:00; Stop 02/12/19 at 22:29 Furosemide (Lasix) 20 mg DAILY IV Last administered on 02/12/19 11:51; Admin Dose 20 MG; Start 02/12/19 at 10:00 MARGARITO WILSON February 12, 2019 12:17
--- NOTE | 2019-02-12 12:54 | CONS ---
Assessment/Plan Assessment/Plan Hospital Course (Demo Recall) IMPRESSION: 1. Atrial fibrillation, currently rate controlled.-off systemic anticoagulation due to anemia. ON asa only due to anemia 2. Possible congestive heart failure by chest x-ray, which will be diastolic, acute on chronic by most recent echo with an EF of 60%. 3. Tricuspid regurgitation, moderate by most recent echo. 4. Acute on chronic renal failure-mild worsening 5. Possible pneumonia. 6. History of coronary artery disease, status post coronary artery bypass graft surgery. 7. Dyslipidemia. 8. Rheumatoid arthritis. 9. Groin cellulitis. 10. Anemia-worsening again today requiring transfusions PRBC's.Now post-op s/p endoscopy 11. Diabetes mellitus. 12. Sepsis/leukocytosis 14. abdominal mass 15. Rash-all over body with skin chaffing at this time, probable drug reaction 16. Encephalopathy-ongoing. MRI negative for acute CVA 17. coagulopathy-ongoing Recc: -Now transferred to Tele -serial ecg's -Contineu lasix now daily -Continue statin -Currently off abx's, f/u cx data -Ongoing GI eval of abd mass -ongoing derm eval of rash and continue topical treatment -Continue low dose BB with well controlled HR's -Now on BIPAP Consultation Date/Type/Reason Admit Date/Time Jan 17, 2019 at 15:58 Initial Consult Date 01/18/19 Type of Consult Cardiology Reason for Consultation AF Requesting Provider: IVAN AKHTAR MD Date/Time of Note DATE: 02/12/19 TIME: 12:49 Exam/Review of Systems Vital Signs Vitals Vital Signs Date Temp Pulse Resp B/P (MAP) Pulse Ox O2 O2 Flow FiO2 Time Delivery Rate 02/12/19 98.6 91 20 104/51 98 11:22 (68) 02/12/19 6.0 07:46 02/12/19 Nasal 07:46 Cannula 02/12/19 30 01:08 Intake and Output 02/11/19 02/11/19 02/12/19 1515:00 23:00 07:00 IntakeIntake Total 820 ml 870 ml 680 ml OutputOutput Total 555 ml 420 ml 200 ml BalanceBalance 265 ml 450 ml 480 ml Exam Exam Review of Systems: CONSTITUTIONAL: No fevers, chills. PULMONARY: No sob CARDIOVASCULAR: No chest pain/palpitations GASTROINTESTINAL: No nausea/vomiting. GENITOURINARY: No hematuria/dysuria. MUSCULOSKELETAL: No myagias/arthalgias. PSYCHIATRIC: The patient denies depression. NEUROLOGIC: No weakness Constitutional: alert Psych: no complaints, confusion Head: normocephalic ENMT: mucosa pink and moist Neck: supple, jvd (9 cm water) Respiratory: diminished breath sounds (at bases/B) Cardiovascular: irregular rhythm Gastrointestinal: soft Musculoskeletal: muscle weakness (generalized) Extremities: edema (none) Neurological: other (No focal deficits) Labs Result Diagram: 02/12/19 0445 02/12/19 0420 Results 24hrs Laboratory Tests Test 02/11/19 12:56 02/11/19 17:45 02/11/19 17:46 02/11/19 18:19 Bedside Glucose 117 57 L 61 L 64 L Test 02/11/19 18:20 02/11/19 18:25 02/11/19 18:44 02/11/19 20:14 Bedside Glucose 66 L 66 L 185 109 Test 02/12/19 00:47 02/12/19 04:20 02/12/19 04:37 02/12/19 04:45 Bedside Glucose 84 102 Sodium Level 150 H Potassium Level 4.6 Chloride Level 116 H Carbon Dioxide Level 30 Anion Gap 4 L Blood Urea Nitrogen 91 H Creatinine 1.91 H Est Glomerular Filtrat Rate mL/min Glucose Level 87 Calcium Level 8.0 L Phosphorus Level 4.7 Magnesium Level 2.3 Iron Level 12 L Total Iron Binding 134 L Capacity Percent Iron 9 L Saturation Total Bilirubin 0.3 Direct Bilirubin 0.00 Indirect Bilirubin 0.3 Aspartate Amino 23 Transf (AST/SGOT) Alanine 39 Aminotransferase (AL T/SGPT) Alkaline Phosphatase 80 Ammonia 13 Total Protein 4.0 L Albumin 1.7 L Globulin 2.30 Albumin/Globulin 0.73 Ratio White Blood Count 11.0 H Red Blood Count 2.46 L Hemoglobin 7.2 L Hematocrit 23.4 L Mean Corpuscular 95.1 Volume Mean Corpuscular 29.3 Hemoglobin Mean Corpuscular 30.8 L Hemoglobin Concent Red Cell 20.9 H Distribution Width Platelet Count 119 L Mean Platelet Volume 13.3 H Immature 0.500 H Granulocytes % Neutrophils % 77.9 H Lymphocytes % 17.7 Monocytes % 3.7 Eosinophils % 0.1 Basophils % 0.1 Nucleated Red Blood 0.8 H Cells % Immature 0.050 H Granulocytes # Neutrophils # 8.6 H Lymphocytes # 2.0 Monocytes # 0.4 Eosinophils # 0.0 Basophils # 0.0 Nucleated Red Blood 0.1 H Cells # Test 02/12/19 10:56 Bedside Glucose 86 Medications Medications Current Medications Lactulose (Enulose) 20 gm DAILY PRN PO CONSTIPATION; Start 01/17/19 at 18:17 Acetaminophen (Tylenol Tab) 650 mg Q4H PRN PO PAIN Last administered on 02/11/19at 21:29; Admin Dose 650 MG; Start 01/17/19 at 18:17 Miscellaneous Information (Pending [facility] Order For Wound Care) This patient ramirez... PRN PRN XX WOUND CARE; Start 01/17/19 at 18:17 Albuterol/ Ipratropium (Duoneb) 3 ml Q2H RESP THERAPY PRN HHN SHORTNESS OF BREATH Last administered on 02/07/19at 05:45; Admin Dose 3 ML; Start 01/17/19 at 18:17 Bisacodyl (Dulcolax) 10 mg BID PRN PO CONSTIPATION; Start 01/17/19 at 18:17; Status Hold Folic Acid (Folic Acid) 1 mg DAILY PO Last administered on 02/11/19at 09:02; Adm in Dose 1 MG; Start 01/17/19 at 18:17 Latanoprost (Xalatan) 1 drop HS BOTH EYES Last administered on 02/11/19at 21:02; Admin Dose 1 DROP; Start 01/17/19 at 18:17 Nitroglycerin (Nitroglycerin (Sl Tab) 0.4 Mg) 0.4 tab Q5M PRN SL CHEST PAIN; Start 01/17/19 at 18:17 Nystatin (Nystatin Powder) 1 applic BID TOP Last administered on 02/11/19at 20:49; Admin Dose 1 APPLIC; Start 01/17/19 at 18:17 IV Flush (NS 3 ml) 3 ml PER PROTOCOL IV ; Start 01/17/19 at 18:17 Miscellaneous Information 1 ea NOTE XX ; Start 01/17/19 at 18:17 Glucose (Glutose) 15 gm Q15M PRN PO DECREASED GLUCOSE; Start 01/17/19 at 18:17 Glucose (Glutose) 22.5 gm Q15M PRN PO DECREASED GLUCOSE; Start 01/17/19 at 18:17 Dextrose (D50w Syringe) 25 ml Q15M PRN IV DECREASED GLUCOSE Last administered on 02/11/19at 18:27; Admin Dose 25 ML; Start 01/17/19 at 18:17 Dextrose (D50w Syringe) 50 ml Q15M PRN IV DECREASED GLUCOSE; Start 01/17/19 at 18:17 Glucagon (Glucagen) 1 mg Q15M PRN IM DECREASED GLUCOSE Last administered on 02/11/19at 17:55; Admin Dose 1 MG; Start 01/17/19 at 18:17 Glucose (Glutose) 15 gm Q15M PRN BUCCAL DECREASED GLUCOSE; Start 01/17/19 at 18:17 Ascorbic Acid (Vitamin C) 250 mg DAILY PO Last administered on 02/11/19at 09:01; Admin Dose 250 MG; Start 01/17/19 at 18:17 Bisacodyl (Dulcolax Supp) 10 mg DAILY PRN RI CONSTIPATION; Start 01/17/19 at 18:17 Zinc Acetate/ Diphenhydramine (Benadryl 2% Cr) 1 applic Q6H PRN TOP ITCHING Last administered on 01/26/19at 07:54; Admin Dose 1 APPLIC; Start 01/19/19 at 16:37 IV Flush (NS 10 ml) 10 ml PRN PRN IV IV PROTOCOL; Start 01/20/19 at 14:30 Cyanocobalamin (Vitamin B12 Inj) 1,000 mcg Q7D IM Last administered on 02/10/19at 09:50; Admin Dose 1,000 MCG; Start 02/03/19 at 09:00 Metoprolol Tartrate (Lopressor) 5 mg Q4H PRN IV HR>110 Hold SBP<100; Start 01/26/19 at 14:30 Vancomycin HCl (Vanco Iv Per Pharmacy) VANCOMYCIN PER PHARMACY PER PROTOCOL XX ; Start 01/27/19 at 12:00 Enoxaparin Sodium (Lovenox) 60 mg DAILY SC Last administered on 02/03/19at 08:06; Admin Dose 60 MG; Start 01/28/19 at 09:00; Status Hold Atorvastatin Calcium (Lipitor) 40 mg QHS NGT Last administered on 02/11/19at 20:58; Admin Dose 40 MG; Start 01/28/19 at 21:00 Docusate Sodium (Colace Liquid Cup) 100 mg BID NGT ; Start 01/27/19 at 22:00; Status Hold Terazosin HCl (Hytrin) 10 mg HS NGT Last administered on 02/11/19 20:57; Admin Dose 10 MG; Start 01/28/19 at 21:00 Levothyroxine Sodium (Synthroid) 125 mcg BEFORE BREAKFAST NGT Last administered on 02/11/19 06:39; Admin Dose 125 MCG; Start 01/28/19 at 07:00 Ferrous Sulfate (Feosol Liquid Cup) 300 mg WITH MEALS GTB Last administered on 02/11/19 17:55; Admin Dose 300 MG; Start 01/28/19 at 11:30 Multivitamins (Multivitamin) 30 ml DAILY GTB Last administered on 02/11/19 09:02; Admin Dose 30 ML; Start 01/28/19 at 11:00 Diagnostic Test (Pha) (Accu-Chek) 1 ea Q4 XX Last administered on 02/12/19 09:00; Admin Dose 1 EA; Start 01/28/19 at 13:00 Nystatin/ Triamcinolone Acetonide (Mycolog Oint) 1 applic BID TOP Last administered on 02/11/19 20:48; Admin Dose 1 APPLIC; Start 01/28/19 at 22:30 Insulin Aspart (Novolog Insulin Pen) NOVOLOG *MILD* ALGORI... Q4 SC Last administered on 02/11/19 09:16; Admin Dose 1 UNIT; Start 01/29/19 at 05:00 Albuterol/ Ipratropium (Duoneb) 3 ml Q6HWA RESP THERAPY HHN Last administered on 02/12/19 07:45; Admin Dose 3 ML; Start 01/29/19 at 14:00 Epoetin Dae-epbx (RETACRIT(non-esrd)) 40,000 unit Mo@1700 SC Last administered on 02/10/19 18:06; Admin Dose 40,000 UNIT; Start 02/03/19 at 17:00 Insulin Glargine (Lantus) 10 units DAILY@2000 SC Last administered on 02/10/19 21:41; Admin Dose 10 UNITS; Start 01/31/19 at 20:00 Aztreonam 1 gm/ Dextrose 50 ml @ 100 mls/hr Q12 IVPB Last administered on 02/12/19 11:50; Admin Dose 100 MLS/HR; Start 02/03/19 at 21:00 Metoprolol Tartrate (Lopressor) 12.5 mg BID PO Last administered on 02/11/19 20:57; Admin Dose 12.5 MG; Start 02/05/19 at 21:00 Eye Lubricant (Refresh Plus) 1 drop QID BOTH EYES Last administered on 02/12/19 12:03; Admin Dose 1 DROP; Start 02/06/19 at 09:00 Eye Lubricant (Akwa Oint) 1 applic HS LEFT EYE Last administered on 02/11/19 20:48; Admin Dose 1 APPLIC; Start 02/06/19 at 21:00 Multi-Ingredient Ointment (Aquaphor Oint 52.5 Gm) 1 applic BID TOP Last administered on 02/11/19 20:48; Admin Dose 1 APPLIC; Start 02/06/19 at 22:40 Lansoprazole (Prevacid) 30 mg BID@0600,1800 NGT Last administered on 02/12/19 05:36; Admin Dose 30 MG; Start 02/07/19 at 18:00 Tobramycin Sulfate/Sodium Chloride (Nilesh Inhal) 300 mg BID RESP THERAPY NEB Last administered on 02/12/19 07:46; Admin Dose 300 MG; Start 02/08/19 at 09:00 Morphine Sulfate (morphine) 0.5 mg Q4H PRN IV SEVERE PAIN LEVEL 7-10 Last administered on 02/10/19 18:18; Admin Dose 0.5 MG; Start 02/08/19 at 19:00 Vancomycin HCl 750 mg/Dextrose 250 ml @ 125 mls/hr Q72H IVPB Last administered on 02/09/19 22:56; Admin Dose 125 MLS/HR; Start 02/09/19 at 23:00 Dextrose 500 ml @ 40 mls/hr [id number] ONCE IV Last administered on 02/12/19 10:00; Admin Dose 40 MLS/HR; Start 02/12/19 at 10:00; Stop 02/12/19 at 22:29 Furosemide (Lasix) 20 mg DAILY IV Last administered on 02/12/19 11:51; Admin Dose 20 MG; Start 02/12/19 at 10:00 MARJORIE JAIN February 12, 2019 12:54
[2019-02-12] MEDS: AQUAPHOR 52.5 GM OINT TOP SCH ×2 (13:22→22:23)
[2019-02-12] MEDS: NYSTATIN 30 GM POWDER BTL TOP SCH ×2 (13:23→22:22)
[2019-02-12] MEDS: BALSAM PERU/CASTOR OIL 60 GM TUBE TOP SCH ×2 (13:23→22:23)
[2019-02-12] MEDS: NYSTATIN/TRIAMCINOLONE 15 GM OINT TOP SCH ×2 (13:23→22:23)
--- NOTE | 2019-02-12 14:29 | CONS ---
Assessment/Plan Assessment/Plan Hospital Course (Demo Recall) All noted, no acute events patient looks comfortable no fevers overnight Antimicrobials: Vancomycin, aztreonam, tobramycin inhalation Indwelling: Left subclavian triple-lumen catheter, Wade catheter, NG tube Allergy: Penicillin, sulfa Physical examination: Obese well-developed chronically ill-appearing - [place] man who is lethargic, in no distress. Head atraumatic normocephalic sclera nonicteric. Neck is supple chest rise symmetrical breath sounds diminished bases. Heart: S1-S2. Abdomen obese soft bowel sounds present extremities without cyanosis, bilateral edema Assessment: 1. Ongoing sepsis s/p shock 2. Acute hypoxemic respiratory failure, likely ongoing aspiration 2. Acute encephalopathy 3. Seizures 4. Healthcare acquired pneumonia 5. Coronary artery disease/history of CABG 6. Advanced rheumatoid arthritis 5. Chronic atrial fibrillation 6. Diabetes 7. BPH 9. Acute on chronic anemia===> s/p EGD/colonoscopy 01/09/19 10. Status post right epididymitis 11. Pancreatic lesion per CT, unlikely neoplasm per oncology notes 12. 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 Skin lesions, s/p punch bx Plan: Niccoli unchanged, continue present care, antibiotics, aspiration preca utions. Overall prognosis very poor. Patient is full code Consultation Date/Type/Reason Admit Date/Time Jan 17, 2019 at 15:58 Initial Consult Date 01/18/19 Type of Consult id Requesting Provider: IVAN AKHTAR MD Date/Time of Note DATE: 02/12/19 TIME: 14:28 Exam/Review of Systems Exam Vitals Vital Signs Date Temp Pulse Resp B/P (MAP) Pulse Ox O2 O2 Flow FiO2 Time Delivery Rate 02/12/19 86 12:52 02/12/19 98.6 20 104/51 98 11:22 (68) 02/12/19 6.0 07:46 02/12/19 Nasal 07:46 Cannula 02/12/19 30 01:08 Intake and Output 02/11/19 02/11/19 02/12/19 1515:00 23:00 07:00 IntakeIntake Total 820 ml 870 ml 680 ml OutputOutput Total 555 ml 420 ml 200 ml BalanceBalance 265 ml 450 ml 480 ml Results Result Diagram: 02/12/19 0445 02/12/19 0420 Results 24hrs Laboratory Tests Test 02/11/19 17:45 02/11/19 17:46 02/11/19 18:19 02/11/19 18:20 Bedside Glucose 57 L 61 L 64 L 66 L Test 02/11/19 18:25 02/11/19 18:44 02/11/19 20:14 02/12/19 00:47 Bedside Glucose 66 L 185 109 84 Test 02/12/19 04:20 02/12/19 04:37 02/12/19 04:45 02/12/19 10:56 Sodium Level 150 H Potassium Level 4.6 Chloride Level 116 H Carbon Dioxide Level 30 Anion Gap 4 L Blood Urea Nitrogen 91 H Creatinine 1.91 H Est Glomerular Filtrat Rate mL/min Glucose Level 87 Calcium Level 8.0 L Phosphorus Level 4.7 Magnesium Level 2.3 Iron Level 12 L Total Iron Binding 134 L Capacity Percent Iron 9 L Saturation Total Bilirubin 0.3 Direct Bilirubin 0.00 Indirect Bilirubin 0.3 Aspartate Amino 23 Transf (AST/SGOT) Alanine 39 Aminotransferase (AL T/SGPT) Alkaline Phosphatase 80 Ammonia 13 Total Protein 4.0 L Albumin 1.7 L Globulin 2.30 Albumin/Globulin 0.73 Ratio Bedside Glucose 102 86 White Blood Count 11.0 H Red Blood Count 2.46 L Hemoglobin 7.2 L Hematocrit 23.4 L Mean Corpuscular 95.1 Volume Mean Corpuscular 29.3 Hemoglobin Mean Corpuscular 30.8 L Hemoglobin Concent Red Cell 20.9 H Distribution Width Platelet Count 119 L Mean Platelet Volume 13.3 H Immature 0.500 H Granulocytes % Neutrophils % 77.9 H Lymphocytes % 17.7 Monocytes % 3.7 Eosinophils % 0.1 Basophils % 0.1 Nucleated Red Blood 0.8 H Cells % Immature 0.050 H Granulocytes # Neutrophils # 8.6 H Lymphocytes # 2.0 Monocytes # 0.4 Eosinophils # 0.0 Basophils # 0.0 Nucleated Red Blood 0.1 H Cells # Medications Medication Current Medications Lactulose (Enulose) 20 gm DAILY PRN PO CONSTIPATION; Start 01/17/19 at 18:17 Acetaminophen (Tylenol Tab) 650 mg Q4H PRN PO PAIN Last administered on 02/11/19at 21:29; Admin Dose 650 MG; Start 01/17/19 at 18:17 Miscellaneous Information [facility] This patient ramirez... PRN PRN XX WOUND CARE; Start 01/17/19 at 18:17 Albuterol/ Ipratropium (Duoneb) 3 ml Q2H RESP THERAPY PRN HHN SHORTNESS OF BREATH Last administered on 02/07/19at 05:45; Admin Dose 3 ML; Start 01/17/19 at 18:17 Bisacodyl (Dulcolax) 10 mg BID PRN PO CONSTIPATION; Start 01/17/19 at 18:17; Status Hold Folic Acid (Folic Acid) 1 mg DAILY PO Last administered on 02/11/19at 09:02; Admin Dose 1 MG; Start 01/17/19 at 18:17 Latanoprost (Xalatan) 1 drop HS BOTH EYES Last administered on 02/11/19at 21:02; Admin Dose 1 DROP; Start 01/17/19 at 18:17 Nitroglycerin (Nitroglycerin (Sl Tab) 0.4 Mg) 0.4 tab Q5M PRN SL CHEST PAIN; Start 01/17/19 at 18:17 Nystatin (Nystatin Powder) 1 applic BID TOP Last administered on 02/12/19at 13:23; Admin Dose 1 APPLIC; Start 01/17/19 at 18:17 IV Flush (NS 3 ml) 3 ml PER PROTOCOL IV ; Start 01/17/19 at 18:17 Miscellaneous Information 1 ea NOTE XX ; Start 01/17/19 at 18:17 Glucose (Glutose) 15 gm Q15M PRN PO DECREASED GLUCOSE; Start 01/17/19 at 18:17 Glucose (Glutose) 22.5 gm Q15M PRN PO DECREASED GLUCOSE; Start 01/17/19 at 18:17 Dextrose (D50w Syringe) 25 ml Q15M PRN IV DECREASED GLUCOSE Last administered on 02/11/19at 18:27; Admin Dose 25 ML; Start 01/17/19 at 18:17 Dextrose (D50w Syringe) 50 ml Q15M PRN IV DECREASED GLUCOSE; Start 01/17/19 at 18:17 Glucagon (Glucagen) 1 mg Q15M PRN IM DECREASED GLUCOSE Last administered on 02/11/19at 17:55; Admin Dose 1 MG; Start 01/17/19 at 18:17 Glucose (Glutose) 15 gm Q15M PRN BUCCAL DECREASED GLUCOSE; Start 01/17/19 at 18:17 Ascorbic Acid (Vitamin C) 250 mg DAILY PO Last administered on 02/11/19at 09:01; Admin Dose 250 MG; Start 01/17/19 at 18:17 Bisacodyl (Dulcolax Supp) 10 mg DAILY PRN SD CONSTIPATION; Start 01/17/19 at 18:17 Zinc Acetate/ Diphenhydramine (Benadryl 2% Cr) 1 applic Q6H PRN TOP ITCHING Last administered on 01/26/19at 07:54; Admin Dose 1 APPLIC; Start 01/19/19 at 16:37 IV Flush (NS 10 ml) 10 ml PRN PRN IV IV PROTOCOL; Start 01/20/19 at 14:30 Cyanocobalamin (Vitamin B12 Inj) 1,000 mcg Q7D IM Last administered on 02/10/19at 09:50; Admin Dose 1,000 MCG; Start 02/03/19 at 09:00 Metoprolol Tartrate (Lopressor) 5 mg Q4H PRN IV HR>110 Hold SBP<100; Start 01/26/19 at 14:30 Vancomycin HCl (Vanco Iv Per Pharmacy) VANCOMYCIN PER PHARMACY PER PROTOCOL XX ; Start 01/27/19 at 12:00 Enoxaparin Sodium (Lovenox) 60 mg DAILY SC Last administered on 02/03/19at 08:06; Admin Dose 60 MG; Start 01/28/19 at 09:00; Status Hold Atorvastatin Calcium (Lipitor) 40 mg QHS NGT Last administered on 02/11/19at 20:58; Admin Dose 40 MG; Start 01/28/19 at 21:00 Docusate Sodium (Colace Liquid Cup) 100 mg BID NGT ; Start 01/27/19 at 22:00; Status Hold Terazosin HCl (Hytrin) 10 mg HS NGT Last administered on 02/11/19at 20:57; Admin Dose 10 MG; Start 01/28/19 at 21:00 Levothyroxine Sodium (Synthroid) 125 mcg BEFORE BREAKFAST NGT Last administered on 02/11/19at 06:39; Admin Dose 125 MCG; Start 01/28/19 at 07:00 Ferrous Sulfate (Feosol Liquid Cup) 300 mg WITH MEALS GTB Last administered on 02/11/19at 17:55; Admin Dose 300 MG; Start 01/28/19 at 11:30 Multivitamins (Multivitamin) 30 ml DAILY GTB Last administered on 02/11/19 09:02; Admin Dose 30 ML; Start 01/28/19 at 11:00 Diagnostic Test (Pha) (Accu-Chek) 1 ea Q4 XX Last administered on 02/12/19 09:00; Admin Dose 1 EA; Start 01/28/19 at 13:00 Nystatin/ Triamcinolone Acetonide (Mycolog Oint) 1 applic BID TOP Last administered on 02/12/19 13:23; Admin Dose 1 APPLIC; Start 01/28/19 at 22:30 Insulin Aspart (Novolog Insulin Pen) NOVOLOG *MILD* ALGORI... Q4 SC Last adm inistered on 02/11/19 09:16; Admin Dose 1 UNIT; Start 01/29/19 at 05:00 Albuterol/ Ipratropium (Duoneb) 3 ml Q6HWA RESP THERAPY HHN Last administered on 02/12/19 13:57; Admin Dose 3 ML; Start 01/29/19 at 14:00 Epoetin Dae-epbx (RETACRIT(non-esrd)) 40,000 unit Mo@1700 SC Last administered on 02/10/19 18:06; Admin Dose 40,000 UNIT; Start 02/03/19 at 17:00 Insulin Glargine (Lantus) 10 units DAILY@2000 SC Last administered on 02/10/19 21:41; Admin Dose 10 UNITS; Start 01/31/19 at 20:00 Aztreonam 1 gm/ Dextrose 50 ml @ 100 mls/hr Q12 IVPB Last administered on 02/12/19 11:50; Admin Dose 100 MLS/HR; Start 02/03/19 at 21:00 Metoprolol Tartrate (Lopressor) 12.5 mg BID PO Last administered on 02/11/19 20:57; Admin Dose 12.5 MG; Start 02/05/19 at 21:00 Eye Lubricant (Refresh Plus) 1 drop QID BOTH EYES Last administered on 02/12/19 13:26; Admin Dose 1 DROP; Start 02/06/19 at 09:00 Eye Lubricant (Akwa Oint) 1 applic HS LEFT EYE Last administered on 02/11/19 20:48; Admin Dose 1 APPLIC; Start 02/06/19 at 21:00 Multi-Ingredient Ointment (Aquaphor Oint 52.5 Gm) 1 applic BID TOP Last administered on 02/12/19 13:22; Admin Dose 1 APPLIC; Start 02/06/19 at 22:40 Lansoprazole (Prevacid) 30 mg BID@0600,1800 NGT Last administered on 02/12/19 05:36; Admin Dose 30 MG; Start 02/07/19 at 18:00 Tobramycin Sulfate/Sodium Chloride (Nilesh Inhal) 300 mg BID RESP THERAPY NEB Last administered on 02/12/19 07:46; Admin Dose 300 MG; Start 02/08/19 at 09:00 Morphine Sulfate (morphine) 0.5 mg Q4H PRN IV SEVERE PAIN LEVEL 7-10 Last administered on 02/10/19 18:18; Admin Dose 0.5 MG; Start 02/08/19 at 19:00 Vancomycin HCl 750 mg/Dextrose 250 ml @ 125 mls/hr Q72H IVPB Last administered on 02/09/19 22:56; Admin Dose 125 MLS/HR; Start 02/09/19 at 23:00 Dextrose 500 ml @ 40 mls/hr [id number] ONCE IV Last administered on 02/12/19 10:00; Admin Dose 40 MLS/HR; Start 02/12/19 at 10:00; Stop 02/12/19 at 22:29 Furosemide (Lasix) 20 mg DAILY IV Last administered on 02/12/19 11:51; Admin Dose 20 MG; Start 02/12/19 at 10:00 LUCIAN HARKINS NP February 12, 2019 14:29
--- NOTE | 2019-02-12 17:50 | CONS ---
Assessment/Plan Assessment/Plan Assessment/Plan (Daily) Assessment/Plan Hospital Course (Demo Recall) 88 [facility] and febrile 1. Severe anemia likely due to chronic disease, last work up while admitted to [facility] about a week ago was neg for GI bleeding, including EGD/colon which was done -s/p EGD and colonoscopy by Dr Verdin 01/09/19 which didn't find an obvious GI etiology to explain anemia. AVM or a small lesion could be missed due to poor prep. Pt likely needs capsule endoscopy -Neg fob, elevate retic, Low iron, tibc, [place] [id number] 2. Cystic lesion along pancreas body - 4.3 cm cystic lesion along the pancreas body, enlarged since 10/10/2012 (previously 2.4 cm). 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 -CEA wnl 3. Severe gastritis 4. Hemorrhoids 5. Hital hernia 6. A fib, -eliquis was stopped 01/06 during previous admission, on ASA 7. COPD 8. HTN 9. Hypothyroidism 10. Bilateral groin cellulitis 11. Rheumatoid arthritis. 12. Diabetes mellitus. 13. Peripheral vascular disease. 14. CHF 15. 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 Sepsis secondary to pneumonia 18. Encephalopathy secondary to sepsis 19. Hypothermia 20. Coagulopathy -INR 1.77 21. Positive wound culture -CORYNEBACTERIUM SPECIES 22 extensive rash all over the body including the face Plan: Family has consented to PEG but pt is not stable Patient is volume overload and is on 6 L of O2. Once his condition is stable will proceed with placement of G-tube Consultation Date/Type/Reason Admit Date/Time Jan 17, 2019 at 15:58 Initial Consult Date 01/18/19 Requesting Provider: IVAN AKHTRA MD Date/Time of Note DATE: 02/12/19 TIME: 17:49 24 HR Interval Summary Constitutional: improved, disoriented Exam/Review of Systems Exam Vitals Vital Signs Date Temp Pulse Resp B/P (MAP) Pulse Ox O2 O2 Flow FiO2 Time Delivery Rate 02/12/19 95 16:41 02/12/19 98.3 20 113/56 98 14:30 (75) 02/12/19 Nasal 6.0 14:08 Cannula 02/12/19 30 01:08 Intake and Output 02/11/19 02/11/19 02/12/19 1515:00 23:00 07:00 IntakeIntake Total 820 ml 870 ml 680 ml OutputOutput Total 555 ml 420 ml 200 ml BalanceBalance 265 ml 450 ml 480 ml Psych: confusion Respiratory: diminished breath sounds Cardiovascular: regular rate and rhythm Musculoskeletal: nl extremities to inspection Results Result Diagram: 02/12/19 0445 02/12/19 0420 Results 24hrs Laboratory Tests Test 02/11/19 18:19 02/11/19 18:20 02/11/19 18:25 02/11/19 18:44 Bedside Glucose 64 L 66 L 66 L 185 Test 02/11/19 20:14 02/12/19 00:47 02/12/19 04:20 02/12/19 04:37 Bedside Glucose 109 84 102 Sodium Level 150 H Potassium Level 4.6 Chloride Level 116 H Carbon Dioxide Level 30 Anion Gap 4 L Blood Urea Nitrogen 91 H Creatinine 1.91 H Est Glomerular Filtrat Rate mL/min Glucose Level 87 Calcium Level 8.0 L Phosphorus Level 4.7 Magnesium Level 2.3 Iron Level 12 L Total Iron Binding 134 L Capacity Percent Iron 9 L Saturation Total Bilirubin 0.3 Direct Bilirubin 0.00 Indirect Bilirubin 0.3 Aspartate Amino 23 Transf (AST/SGOT) Alanine 39 Aminotransferase (AL T/SGPT) Alkaline Phosphatase 80 Ammonia 13 Total Protein 4.0 L Albumin 1.7 L Globulin 2.30 Albumin/Globulin 0.73 Ratio Test 02/12/19 04:45 02/12/19 10:56 02/12/19 14:31 White Blood Count 11.0 H Red Blood Count 2.46 L Hemoglobin 7.2 L Hematocrit 23.4 L Mean Corpuscular 95.1 Volume Mean Corpuscular 29.3 Hemoglobin Mean Corpuscular 30.8 L Hemoglobin Concent Red Cell 20.9 H Distribution Width Platelet Count 119 L Mean Platelet Volume 13.3 H Immature 0.500 H Granulocytes % Neutrophils % 77.9 H Lymphocytes % 17.7 Monocytes % 3.7 Eosinophils % 0.1 Basophils % 0.1 Nucleated Red Blood 0.8 H Cells % Immature 0.050 H Granulocytes # Neutrophils # 8.6 H Lymphocytes # 2.0 Monocytes # 0.4 Eosinophils # 0.0 Basophils # 0.0 Nucleated Red Blood 0.1 H Cells # Bedside Glucose 86 80 Medications Medication Current Medications Lactulose (Enulose) 20 gm DAILY PRN PO CONSTIPATION; Start 01/17/19 at 18:17 Acetaminophen (Tylenol Tab) 650 mg Q4H PRN PO PAIN Last administered on 02/11/19at 21:29; Admin Dose 650 MG; Start 01/17/19 at 18:17 Miscellaneous Information (Pending [facility] Order For Wound Care) This patient ramirez... PRN PRN XX WOUND CARE; Start 01/17/19 at 18:17 Albuterol/ Ipratropium (Duoneb) 3 ml Q2H RESP THERAPY PRN HHN SHORTNESS OF BREATH Last administered on 02/07/19at 05:45; Admin Dose 3 ML; Start 01/17/19 at 18:17 Bisacodyl (Dulcolax) 10 mg BID PRN PO CONSTIPATION; Start 01/17/19 at 18:17; Status Hold Folic Acid (Folic Acid) 1 mg DAILY PO Last administered on 02/11/19at 09:02; Admin Dose 1 MG; Start 01/17/19 at 18:17 Latanoprost (Xalatan) 1 drop HS BOTH EYES Last administered on 02/11/19at 21:02; Admin Dose 1 DROP; Start 01/17/19 at 18:17 Nitroglycerin (Nitroglycerin (Sl Tab) 0.4 Mg) 0.4 tab Q5M PRN SL CHEST PAIN; Start 01/17/19 at 18:17 Nystatin (Nystatin Powder) 1 applic BID TOP Last administered on 02/12/19at 13:23; Admin Dose 1 APPLIC; Start 01/17/19 at 18:17 IV Flush (NS 3 ml) 3 ml PER PROTOCOL IV ; Start 01/17/19 at 18:17 Miscellaneous Information 1 ea NOTE XX ; Start 01/17/19 at 18:17 Glucose (Glutose) 15 gm Q15M PRN PO DECREASED GLUCOSE; Start 01/17/19 at 18:17 Glucose (Glutose) 22.5 gm Q15M PRN PO DECREASED GLUCOSE; Start 01/17/19 at 18:17 Dextrose (D50w Syringe) 25 ml Q15M PRN IV DECREASED GLUCOSE Last administered on 02/11/19at 18:27; Admin Dose 25 ML; Start 01/17/19 at 18:17 Dextrose (D50w Syringe) 50 ml Q15M PRN IV DECREASED GLUCOSE; Start 01/17/19 at 18:17 Glucagon (Glucagen) 1 mg Q15M PRN IM DECREASED GLUCOSE Last administered on 02/11/19at 17:55; Admin Dose 1 MG; Start 01/17/19 at 18:17 Glucose (Glutose) 15 gm Q15M PRN BUCCAL DECREASED GLUCOSE; Start 01/17/19 at 18:17 Ascorbic Acid (Vitamin C) 250 mg DAILY PO Last administered on 02/11/19at 09:01; Admin Dose 250 MG; Start 01/17/19 at 18:17 Bisacodyl (Dulcolax Supp) 10 mg DAILY PRN NE CONSTIPATION; Start 01/17/19 at 18:17 Zinc Acetate/ Diphenhydramine (Benadryl 2% Cr) 1 applic Q6H PRN TOP ITCHING Last administered on 01/26/19at 07:54; Admin Dose 1 APPLIC; Start 01/19/19 at 16:37 IV Flush (NS 10 ml) 10 ml PRN PRN IV IV PROTOCOL; Start 01/20/19 at 14:30 Cyanocobalamin (Vitamin B12 Inj) 1,000 mcg Q7D IM Last administered on 02/10/19at 09:50; Admin Dose 1,000 MCG; Start 02/03/19 at 09:00 Metoprolol Tartrate (Lopressor) 5 mg Q4H PRN IV HR>110 Hold SBP<100; Start 01/26/19 at 14:30 Vancomycin HCl (Vanco Iv Per Pharmacy) VANCOMYCIN PER PHARMACY PER PROTOCOL XX ; Start 01/27/19 at 12:00 Enoxaparin Sodium (Lovenox) 60 mg DAILY SC Last administered on 02/03/19at 08:06; Admin Dose 60 MG; Start 01/28/19 at 09:00; Status Hold Atorvastatin Calcium (Lipitor) 40 mg QHS NGT Last administered on 02/11/19at 20:58; Admin Dose 40 MG; Start 01/28/19 at 21:00 Docusate Sodium (Colace Liquid Cup) 100 mg BID NGT ; Start 01/27/19 at 22:00; Status Hold Terazosin HCl (Hytrin) 10 mg HS NGT Last administered on 02/11/19at 20:57; Admin Dose 10 MG; Start 01/28/19 at 21:00 Levothyroxine Sodium (Synthroid) 125 mcg BEFORE BREAKFAST NGT Last administered on 02/11/19 06:39; Admin Dose 125 MCG; Start 01/28/19 at 07:00 Ferrous Sulfate (Feosol Liquid Cup) 300 mg WITH MEALS GTB Last administered on 02/11/19 17:55; Admin Dose 300 MG; Start 01/28/19 at 11:30 Multivitamins (Multivitamin) 30 ml DAILY GTB Last administered on 02/11/19 09:02; Admin Dose 30 ML; Start 01/28/19 at 11:00 Diagnostic Test (Pha) (Accu-Chek) 1 ea Q4 XX Last administered on 02/12/19 13:00; Admin Dose 1 EA; Start 01/28/19 at 13:00 Nystatin/ Triamcinolone Acetonide (Mycolog Oint) 1 applic BID TOP Last administered on 02/12/19 13:23; Admin Dose 1 APPLIC; Start 01/28/19 at 22:30 Insulin Aspart (Novolog Insulin Pen) NOVOLOG *MILD* ALGORI... Q4 SC Last administered on 02/11/19 09:16; Admin Dose 1 UNIT; Start 01/29/19 at 05:00 Albuterol/ Ipratropium (Duoneb) 3 ml Q6HWA RESP THERAPY HHN Last administered on 02/12/19 13:57; Admin Dose 3 ML; Start 01/29/19 at 14:00 Epoetin Dae-epbx (RETACRIT(non-esrd)) 40,000 unit Mo@1700 SC Last administered on 02/10/19 18:06; Admin Dose 40,000 UNIT; Start 02/03/19 at 17:00 Insulin Glargine (Lantus) 10 units DAILY@2000 SC Last administered on 02/10/19 21:41; Admin Dose 10 UNITS; Start 01/31/19 at 20:00 Aztreonam 1 gm/ Dextrose 50 ml @ 100 mls/hr Q12 IVPB Last administered on 02/12/19 11:50; Admin Dose 100 MLS/HR; Start 02/03/19 at 21:00 Metoprolol Tartrate (Lopressor) 12.5 mg BID PO Last administered on 02/11/19 20:57; Admin Dose 12.5 MG; Start 02/05/19 at 21:00 Eye Lubricant (Refresh Plus) 1 drop QID BOTH EYES Last administered on 02/12/19 13:26; Admin Dose 1 DROP; Start 02/06/19 at 09:00 Eye Lubricant (Akwa Oint) 1 applic HS LEFT EYE Last administered on 02/11/19 20:48; Admin Dose 1 APPLIC; Start 02/06/19 at 21:00 Multi-Ingredient Ointment (Aquaphor Oint 52.5 Gm) 1 applic BID TOP Last administered on 02/12/19 13:22; Admin Dose 1 APPLIC; Start 02/06/19 at 22:40 Lansoprazole (Prevacid) 30 mg BID@0600,1800 NGT Last administered on 02/12/19 05:36; Admin Dose 30 MG; Start 02/07/19 at 18:00 Tobramycin Sulfate/Sodium Chloride (Nilesh Inhal) 300 mg BID RESP THERAPY NEB Last administered on 02/12/19 07:46; Admin Dose 300 MG; Start 02/08/19 at 09:00 Morphine Sulfate (morphine) 0.5 mg Q4H PRN IV SEVERE PAIN LEVEL 7-10 Last administered on 02/10/19 18:18; Admin Dose 0.5 MG; Start 02/08/19 at 19:00 Vancomycin HCl 750 mg/Dextrose 250 ml @ 125 mls/hr Q72H IVPB Last administered on 02/09/19 22:56; Admin Dose 125 MLS/HR; Start 02/09/19 at 23:00 Dextrose 500 ml @ 40 mls/hr [id number] ONCE IV Last administered on 02/12/19 10:00; Admin Dose 40 MLS/HR; Start 02/12/19 at 10:00; Stop 02/12/19 at 22:29 Furosemide (Lasix) 20 mg DAILY IV Last administered on 02/12/19 11:51; Admin Dose 20 MG; Start 02/12/19 at 10:00 MICHELLE VERDIN MD February 12, 2019 17:50
[2019-02-12] MEDS: INSULIN GLARGINE [LANTus] (100 UNITS/ML) SYG SC SCH (21:20)
[2019-02-12] MEDS: TERAZOSIN 5 MG CAP NGT SCH (22:21)
[2019-02-12] MEDS: ATORVASTATIN 40 MG TAB NGT SCH (22:21)
[2019-02-12] MEDS: LATANOPROST 0.005% 2.5 ML OPH BOTH EYES SCH (22:23)
[2019-02-12] MEDS: OCULAR LUBRICANT 3.5 GM OPH OINT LEFT EYE SCH (22:24)
[2019-02-12] MEDS: VANCOMYCIN 750 MG in DEXTROSE 5% 250 ML IVPB SCH (22:24)
[2019-02-12] MEDS: ALBUTEROL/IPRATROPIUM (NEB) 3 ML AMP HHN PRN (23:59)
[2019-02-13] VITALS (21 sets, daily range): BP systolic 81–120; BP diastolic 43–80; PULSE 70–96; RESP 18–20
[2019-02-13] MEDS: INSULIN ASPART [NOVOLOG] 3 ML PEN SC SCH ×6 (01:00→21:34)
[2019-02-13] MEDS: ACCU-CHEK XX SCH ×6 (01:00→21:32)
[2019-02-13] MEDS: FUROSEMIDE 20 MG INJ IV SCH ×3 (01:08→21:30)
[2019-02-13] MEDS: LEVOTHYROXINE 125 MCG TAB NGT SCH (05:25)
[2019-02-13] MEDS: LANSOPRAZOLE 30 MG CAP NGT SCH ×2 (05:25→17:24)
[2019-02-13] MEDS: ALBUTEROL/IPRATROPIUM (NEB) 3 ML AMP HHN PRN (05:52)
[2019-02-13] MEDS: ALBUTEROL/IPRATROPIUM (NEB) 3 ML AMP HHN SCH ×3 (08:18→19:46)
[2019-02-13] MEDS: TOBRAMYCIN/0.25NS 300 MG/5 ML INHAL NEB SCH ×2 (08:18→19:46)
[2019-02-13] MEDS: FOLIC ACID 1 MG TAB PO SCH (08:44)
[2019-02-13] MEDS: ASCORBIC ACID 250 MG TAB PO SCH (08:44)
[2019-02-13] MEDS: FERROUS SULFATE 60 MG/ML 5ML CUP GTB SCH ×3 (08:44→17:24)
[2019-02-13] MEDS: CARBOXYMETHYLCELLULOSE 0.5% 0.4 ML OPH BOTH EYES SCH ×4 (08:44→21:28)
[2019-02-13] MEDS: AZTREONAM 1 GM in DEXTROSE 5% 50 ML IVPB SCH ×2 (08:45→21:38)
[2019-02-13] MEDS: MULTIVITAMINS 30 ML CUP GTB SCH (08:46)
[2019-02-13] MEDS: METOPROLOL 25 MG TAB PO SCH ×2 (08:49→21:28)
[2019-02-13] MEDS: NYSTATIN/TRIAMCINOLONE 15 GM OINT TOP SCH ×2 (09:00→21:38)
[2019-02-13] MEDS: BALSAM PERU/CASTOR OIL 60 GM TUBE TOP SCH ×2 (09:00→21:32)
--- NOTE | 2019-02-13 10:31 | CONS ---
Assessment/Plan Assessment/Plan Assessment/Plan (Daily) Assessment/Plan Hospital Course (Demo Recall) 88 [facility] febrile 1. Severe anemia likely due to chronic disease, last work up while admitted to [facility] about a week ago was neg for GI bleeding, including EGD/colon which was done -s/p EGD and colonoscopy by Dr Verdin 01/09/19 which didn't find an obvious GI etiology to explain anemia. AVM or a small lesion could be missed due to poor prep. Pt likely needs capsule endoscopy -Neg fob, elevate retic, Low iron, tib[place], [place] [id number] 2. Cystic lesion along pancreas body - 4.3 cm cystic lesion along the pancreas body, enlarged since 10/10/2012 (previously 2.4 cm). 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 -CEA wnl 3. Severe gastritis 4. Hemorrhoids 5. Hital hernia 6. A fib, -eliquis was stopped 01/06 during previous admission, on ASA 7. COPD 8. HTN 9. Hypothyroidism 10. Bilateral groin cellulitis 11. Rheumatoid arthritis. 12. Diabetes mellitus. 13. Peripheral vascular disease. 14. CHF 15. 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 Sepsis secondary to pneumonia 18. Encephalopathy secondary to sepsis 19. Hypothermia 20. Coagulopathy -INR 1.77 21. Positive wound culture -CORYNEBACTERIUM SPECIES 22 extensive rash all over the body including the face Plan: Family has consented to PEG but pt is not stable Patient is volume overload and is on 6 L of O2. Once his condition is stable will proceed with placement of G-tube Consultation Date/Type/Reason Admit Date/Time Jan 17, 2019 at 15:58 Initial Consult Date 01/18/19 Requesting Provider: IVAN AKHTAR MD Date/Time of Note DATE: 02/13/19 TIME: 10:31 24 HR Interval Summary Subjective hx not possible: pt critical Exam/Review of Systems Exam Vitals Vital Signs Date Temp Pulse Resp B/P (MAP) Pulse Ox O2 O2 Flow FiO2 Time Delivery Rate 02/13/19 87 08:52 02/13/19 20 94 Nasal 6.0 08:30 Cannula 02/13/19 96/67 (77) 07:48 02/13/19 98.9 04:36 02/12/19 30 01:08 Intake and Output 02/12/19 02/12/19 02/13/19 1515:00 23:00 07:00 IntakeIntake Total 480 ml OutputOutput Total 1150 ml 800 ml BalanceBalance -1150 ml -320 ml Psych: confusion Respiratory: diminished breath sounds Cardiovascular: nl pulses Extremities: normal pulses Results Result Diagram: 02/13/19 0627 02/13/19 0627 Results 24hrs Laboratory Tests Test 02/12/19 10:56 02/12/19 14:31 02/12/19 17:48 02/12/19 21:20 Bedside Glucose 86 80 80 75 Test 02/13/19 01:15 02/13/19 05:26 02/13/19 06:27 02/13/19 08:24 Bedside Glucose 122 153 193 White Blood Count 10.0 Red Blood Count 2.61 L Hemoglobin 7.4 L Hematocrit 25.2 L Mean Corpuscular 96.6 Volume Mean Corpuscular 28.4 L Hemoglobin Mean Corpuscular 29.4 L Hemoglobin Concent Red Cell 21.4 H Distribution Width Platelet Count 110 L Mean Platelet Volume 12.8 H Immature 0.400 Granulocytes % Neutrophils % 77.7 H Lymphocytes % 17.6 Monocytes % 3.4 Eosinophils % 0.7 Basophils % 0.2 Nucleated Red Blood 0.6 H Cells % Immature 0.040 H Granulocytes # Neutrophils # 7.8 H Lymphocytes # 1.8 Monocytes # 0.3 Eosinophils # 0.1 Basophils # 0.0 Nucleated Red Blood 0.1 H Cells # Sodium Level 150 H Potassium Level 4.4 Chloride Level 117 H Carbon Dioxide Level 30 Anion Gap 3 L Blood Urea Nitrogen 84 H Creatinine 1.88 H Est Glomerular Filtrat Rate mL/min Glucose Level 142 # Calcium Level 8.0 L Phosphorus Level 5.2 H Magnesium Level 2.2 Medications Medication Current Medications Lactulose (Enulose) 20 gm DAILY PRN PO CONSTIPATION; Start 01/17/19 at 18:17 Acetaminophen (Tylenol Tab) 650 mg Q4H PRN PO PAIN Last administered on 02/11/19at 21:29; Admin Dose 650 MG; Start 01/17/19 at 18:17 Miscellaneous Information (Pending [facility] Order For Wound Care) This patient ramirez... PRN PRN XX WOUND CARE; Start 01/17/19 at 18:17 Albuterol/ Ipratropium (Duoneb) 3 ml Q2H RESP THERAPY PRN HHN SHORTNESS OF BREATH Last administered on 02/13/19at 05:52; Admin Dose 3 ML; Start 01/17/19 at 18:17 Bisacodyl (Dulcolax) 10 mg BID PRN PO CONSTIPATION; Start 01/17/19 at 18:17; Status Hold Folic Acid (Folic Acid) 1 mg DAILY PO Last administered on 02/13/19at 08:44; Admin Dose 1 MG; Start 01/17/19 at 18:17 Latanoprost (Xalatan) 1 drop HS BOTH EYES Last administered on 02/12/19at 22:23; Admin Dose 1 DROP; Start 01/17/19 at 18:17 Nitroglycerin (Nitroglycerin (Sl Tab) 0.4 Mg) 0.4 tab Q5M PRN SL CHEST PAIN; Start 01/17/19 at 18:17 Nystatin (Nystatin Powder) 1 applic BID TOP Last administered on 02/12/19at 22: 22; Admin Dose 1 APPLIC; Start 01/17/19 at 18:17 IV Flush (NS 3 ml) 3 ml PER PROTOCOL IV ; Start 01/17/19 at 18:17 Miscellaneous Information 1 ea NOTE XX ; Start 01/17/19 at 18:17 Glucose (Glutose) 15 gm Q15M PRN PO DECREASED GLUCOSE; Start 01/17/19 at 18:17 Glucose (Glutose) 22.5 gm Q15M PRN PO DECREASED GLUCOSE; Start 01/17/19 at 18:17 Dextrose (D50w Syringe) 25 ml Q15M PRN IV DECREASED GLUCOSE Last administered on 02/11/19at 18:27; Admin Dose 25 ML; Start 01/17/19 at 18:17 Dextrose (D50w Syringe) 50 ml Q15M PRN IV DECREASED GLUCOSE; Start 01/17/19 at 18:17 Glucagon (Glucagen) 1 mg Q15M PRN IM DECREASED GLUCOSE Last administered on 02/11/19at 17:55; Admin Dose 1 MG; Start 01/17/19 at 18:17 Glucose (Glutose) 15 gm Q15M PRN BUCCAL DECREASED GLUCOSE; Start 01/17/19 at 18:17 Ascorbic Acid (Vitamin C) 250 mg DAILY PO Last administered on 02/13/19 08:44; Admin Dose 250 MG; Start 01/17/19 at 18:17 Bisacodyl (Dulcolax Supp) 10 mg DAILY PRN SC CONSTIPATION; Start 01/17/19 at 18:17 Zinc Acetate/ Diphenhydramine (Benadryl 2% Cr) 1 applic Q6H PRN TOP ITCHING Last administered on 01/26/19 07:54; Admin Dose 1 APPLIC; Start 01/19/19 at 16:37 IV Flush (NS 10 ml) 10 ml PRN PRN IV IV PROTOCOL; Start 01/20/19 at 14:30 Cyanocobalamin (Vitamin B12 Inj) 1,000 mcg Q7D IM Last administered on 02/10/19 09:50; Admin Dose 1,000 MCG; Start 02/03/19 at 09:00 Metoprolol Tartrate (Lopressor) 5 mg Q4H PRN IV HR>110 Hold SBP<100; Start 01/26/19 at 14:30 Vancomycin HCl (Vanco Iv Per Pharmacy) VANCOMYCIN PER PHARMACY PER PROTOCOL XX ; Start 01/27/19 at 12:00 Enoxaparin Sodium (Lovenox) 60 mg DAILY SC Last administered on 02/03/19 08:06; Admin Dose 60 MG; Start 01/28/19 at 09:00; Status Hold Atorvastatin Calcium (Lipitor) 40 mg QHS NGT Last administered on 02/12/19at 22:21; Admin Dose 40 MG; Start 01/28/19 at 21:00 Docusate Sodium (Colace Liquid Cup) 100 mg BID NGT ; Start 01/27/19 at 22:00; Status Hold Terazosin HCl (Hytrin) 10 mg HS NGT Last administered on 02/12/19at 22:21; Admin Dose 10 MG; Start 01/28/19 at 21:00 Levothyroxine Sodium (Synthroid) 125 mcg BEFORE BREAKFAST NGT Last a dministered on 02/13/19 05:25; Admin Dose 125 MCG; Start 01/28/19 at 07:00 Ferrous Sulfate (Feosol Liquid Cup) 300 mg WITH MEALS GTB Last administered on 02/13/19 08:44; Admin Dose 300 MG; Start 01/28/19 at 11:30 Multivitamins (Multivitamin) 30 ml DAILY GTB Last administered on 02/13/19 08:46; Admin Dose 30 ML; Start 01/28/19 at 11:00 Diagnostic Test (Pha) (Accu-Chek) 1 ea Q4 XX Last administered on 02/13/19 05:28; Admin Dose 1 EA; Start 01/28/19 at 13:00 Nystatin/ Triamcinolone Acetonide (Mycolog Oint) 1 applic BID TOP Last administered on 02/12/19 22:23; Admin Dose 1 APPLIC; Start 01/28/19 at 22:30 Insulin Aspart (Novolog Insulin Pen) NOVOLOG *MILD* ALGORI... Q4 SC Last administered on 02/13/19 08:48; Admin Dose 2 UNIT; Start 01/29/19 at 05:00 Albuterol/ Ipratropium (Duoneb) 3 ml Q6HWA RESP THERAPY HHN Last administered on 02/13/19 08:18; Admin Dose 3 ML; Start 01/29/19 at 14:00 Epoetin Dae-epbx (RETACRIT(non-esrd)) 40,000 unit Mo@1700 SC Last administered on 02/10/19 18:06; Admin Dose 40,000 UNIT; Start 02/03/19 at 17:00 Insulin Glargine (Lantus) 10 units DAILY@2000 SC Last administered on 02/10/19 21:41; Admin Dose 10 UNITS; Start 01/31/19 at 20:00 Aztreonam 1 gm/ Dextrose 50 ml @ 100 mls/hr Q12 IVPB Last administered on 02/13/19 08:45; Admin Dose 100 MLS/HR; Start 02/03/19 at 21:00 Metoprolol Tartrate (Lopressor) 12.5 mg BID PO Last administered on 02/13/19 08:49; Admin Dose 12.5 MG; Start 02/05/19 at 21:00 Eye Lubricant (Refresh Plus) 1 drop QID BOTH EYES Last administered on 02/13/19 08:44; Admin Dose 1 DROP; Start 02/06/19 at 09:00 Eye Lubricant (Akwa Oint) 1 applic HS LEFT EYE Last administered on 02/12/19 22:24; Admin Dose 1 APPLIC; Start 02/06/19 at 21:00 Multi-Ingredient Ointment (Aquaphor Oint 52.5 Gm) 1 applic BID TOP Last administered on 02/12/19 22:23; Admin Dose 1 APPLIC; Start 02/06/19 at 22:40 Lansoprazole (Prevacid) 30 mg BID@0600,1800 NGT Last administered on 02/13/19 05:25; Admin Dose 30 MG; Start 02/07/19 at 18:00 Tobramycin Sulfate/Sodium Chloride (Nilesh Inhal) 300 mg BID RESP THERAPY NEB Last administered on 02/13/19 08:18; Admin Dose 300 MG; Start 02/08/19 at 09:00 Morphine Sulfate (morphine) 0.5 mg Q4H PRN IV SEVERE PAIN LEVEL 7-10 Last administered on 02/10/19 18:18; Admin Dose 0.5 MG; Start 02/08/19 at 19:00 Vancomycin HCl 750 mg/Dextrose 250 ml @ 125 mls/hr Q72H IVPB Last administered on 02/12/19 22:24; Admin Dose 125 MLS/HR; Start 02/09/19 at 23:00 Furosemide (Lasix) 20 mg BID IV Last administered on 02/13/19 08:46; Admin Dose 20 MG; Start 02/13/19 at 00:30 MICHELLE VERDIN MD February 13, 2019 10:31
--- NOTE | 2019-02-13 11:11 | CONS ---
Consult Date/Type/Reason Admit Date/Time Jan 17, 2019 at 15:58 Initial Consult Date 01/18/19 Type of Consult Pulmonary Requesting Provider: IVAN AKHTAR MD Date/Time of Note DATE: 02/13/19 TIME: 11:10 Subjective No significant changes. Patient remained stable this morning no respiratory distress. Objective Vital Signs Date Temp Pulse Resp B/P (MAP) Pulse Ox O2 O2 Flow FiO2 Time Delivery Rate 02/13/19 80 19 105/50 96 10:00 (68) 02/13/19 Nasal 6.0 08:30 Cannula 02/13/19 98.9 04:36 02/12/19 30 01:08 Intake and Output 02/12/19 02/12/19 02/13/19 1515:00 23:00 07:00 IntakeIntake Total 480 ml OutputOutput Total 1150 ml 800 ml BalanceBalance -1150 ml -320 ml Exam GENERAL: Frail elderly gentleman comfortable at rest on nasal cannula oxygen VITAL SIGNS: per chart NECK: Supple. No JVD or lymphadenopathy. CARDIAC EXAM: S1, S2. No added sounds or murmurs. CHEST: Diminished air entry both bases ABDOMEN: Soft, nontender. No guarding or rebound. EXTREMITIES: No cyanosis, clubbing edema +2 NEUROLOGIC: Generalized weakness Vent Setting Ventilator Support Mode: AC Fraction of Inspired Oxygen pe: 70 Positive End Expiratory Pressu: 5.0 Results/Medications Result Diagram: 02/13/1962602/13/19626 Results 24 hrs Laboratory Tests Test 02/12/19 14:31 02/12/19 17:48 02/12/19 21:20 02/13/19 01:15 Bedside Glucose 80 80 75 122 Test 02/13/19 05:26 02/13/19 06:27 02/13/19 08:24 Bedside Glucose 153 193 White Blood Count 10.0 Red Blood Count 2.61 L Hemoglobin 7.4 L Hematocrit 25.2 L Mean Corpuscular 96.6 Volume Mean Corpuscular 28.4 L Hemoglobin Mean Corpuscular 29.4 L Hemoglobin Concent Red Cell 21.4 H Distribution Width Platelet Count 110 L Mean Platelet Volume 12.8 H Immature 0.400 Granulocytes % Neutrophils % 77.7 H Lymphocytes % 17.6 Monocytes % 3.4 Eosinophils % 0.7 Basophils % 0.2 Nucleated Red Blood 0.6 H Cells % Immature 0.040 H Granulocytes # Neutrophils # 7.8 H Lymphocytes # 1.8 Monocytes # 0.3 Eosinophils # 0.1 Basophils # 0.0 Nucleated Red Blood 0.1 H Cells # Sodium Level 150 H Potassium Level 4.4 Chloride Level 117 H Carbon Dioxide Level 30 Anion Gap 3 L Blood Urea Nitrogen 84 H Creatinine 1.88 H Est Glomerular Filtrat Rate mL/min Glucose Level 142 # Calcium Level 8.0 L Phosphorus Level 5.2 H Magnesium Level 2.2 Medications Current Medications Lactulose (Enulose) 20 gm DAILY PRN PO CONSTIPATION; Start 01/17/19 at 18:17 Acetaminophen (Tylenol Tab) 650 mg Q4H PRN PO PAIN Last administered on 02/11/19at 21:29; Admin Dose 650 MG; Start 01/17/19 at 18:17 Miscellaneous Information (Pending [facility] Order For Wound Care) This patient ramirez... PRN PRN XX WOUND CARE; Start 01/17/19 at 18:17 Albuterol/ Ipratropium (Duoneb) 3 ml Q2H RESP THERAPY PRN HHN SHORTNESS OF BREATH Last administered on 02/13/19at 05:52; Admin Dose 3 ML; Start 01/17/19 at 18:17 Bisacodyl (Dulcolax) 10 mg BID PRN PO CONSTIPATION; Start 01/17/19 at 18:17; Status Hold Folic Acid (Folic Acid) 1 mg DAILY PO Last administered on 02/13/19at 08:44; Admin Dose 1 MG; Start 01/17/19 at 18:17 Latanoprost (Xalatan) 1 drop HS BOTH EYES Last administered on 02/12/19at 22:23; Admin Dose 1 DROP; Start 01/17/19 at 18:17 Nitroglycerin (Nitroglycerin (Sl Tab) 0.4 Mg) 0.4 tab Q5M PRN SL CHEST PAIN; Start 01/17/19 at 18:17 Nystatin (Nystatin Powder) 1 applic BID TOP Last administered on 02/12/19at 2 2:22; Admin Dose 1 APPLIC; Start 01/17/19 at 18:17 IV Flush (NS 3 ml) 3 ml PER PROTOCOL IV ; Start 01/17/19 at 18:17 Miscellaneous Information 1 ea NOTE XX ; Start 01/17/19 at 18:17 Glucose (Glutose) 15 gm Q15M PRN PO DECREASED GLUCOSE; Start 01/17/19 at 18:17 Glucose (Glutose) 22.5 gm Q15M PRN PO DECREASED GLUCOSE; Start 01/17/19 at 18:17 Dextrose (D50w Syringe) 25 ml Q15M PRN IV DECREASED GLUCOSE Last administered on 02/11/19at 18:27; Admin Dose 25 ML; Start 01/17/19 at 18:17 Dextrose (D50w Syringe) 50 ml Q15M PRN IV DECREASED GLUCOSE; Start 01/17/19 at 18:17 Glucagon (Glucagen) 1 mg Q15M PRN IM DECREASED GLUCOSE Last administered on 02/11/19at 17:55; Admin Dose 1 MG; Start 01/17/19 at 18:17 Glucose (Glutose) 15 gm Q15M PRN BUCCAL DECREASED GLUCOSE; Start 01/17/19 at 18:17 Ascorbic Acid (Vitamin C) 250 mg DAILY PO Last administered on 02/13/19at 08:44; Admin Dose 250 MG; Start 01/17/19 at 18:17 Bisacodyl (Dulcolax Supp) 10 mg DAILY PRN [place] CONSTIPATION; Start 01/17/19 at 18:17 Zinc Acetate/ Diphenhydramine (Benadryl 2% Cr) 1 applic Q6H PRN TOP ITCHING Last administered on 01/26/19at 07:54; Admin Dose 1 APPLIC; Start 01/19/19 at 16:37 IV Flush (NS 10 ml) 10 ml PRN PRN IV IV PROTOCOL; Start 01/20/19 at 14:30 Cyanocobalamin (Vitamin B12 Inj) 1,000 mcg Q7D IM Last administered on 02/10/19at 09:50; Admin Dose 1,000 MCG; Start 02/03/19 at 09:00 Metoprolol Tartrate (Lopressor) 5 mg Q4H PRN IV HR>110 Hold SBP<100; Start 01/26/19 at 14:30 Vancomycin HCl (Vanco Iv Per Pharmacy) VANCOMYCIN PER PHARMACY PER PROTOCOL XX ; Start 01/27/19 at 12:00 Enoxaparin Sodium (Lovenox) 60 mg DAILY SC Last administered on 02/03/19at 08:06; Admin Dose 60 MG; Start 01/28/19 at 09:00; Status Hold Atorvastatin Calcium (Lipitor) 40 mg QHS NGT Last administered on 02/12/19 22:21; Admin Dose 40 MG; Start 01/28/19 at 21:00 Docusate Sodium (Colace Liquid Cup) 100 mg BID NGT ; Start 01/27/19 at 22:00; Status Hold Terazosin HCl (Hytrin) 10 mg HS NGT Last administered on 02/12/19 22:21; Admin Dose 10 MG; Start 01/28/19 at 21:00 Levothyroxine Sodium (Synthroid) 125 mcg BEFORE BREAKFAST NGT Last administered on 02/13/19 05:25; Admin Dose 125 MCG; Start 01/28/19 at 07:00 Ferrous Sulfate (Feosol Liquid Cup) 300 mg WITH MEALS GTB Last administered on 02/13/19 08:44; Admin Dose 300 MG; Start 01/28/19 at 11:30 Multivitamins (Multivitamin) 30 ml DAILY GTB Last administered on 02/13/19 08:46; Admin Dose 30 ML; Start 01/28/19 at 11:00 Diagnostic Test (Pha) (Accu-Chek) 1 ea Q4 XX Last administered on 02/13/19 05:28; Admin Dose 1 EA; Start 01/28/19 at 13:00 Nystatin/ Triamcinolone Acetonide (Mycolog Oint) 1 applic BID TOP Last administered on 02/12/19 22:23; Admin Dose 1 APPLIC; Start 01/28/19 at 22:30 Insulin Aspart (Novolog Insulin Pen) NOVOLOG *MILD* ALGORI... Q4 SC Last administered on 02/13/19 08:48; Admin Dose 2 UNIT; Start 01/29/19 at 05:00 Albuterol/ Ipratropium (Duoneb) 3 ml Q6HWA RESP THERAPY HHN Last administered on 02/13/19 08:18; Admin Dose 3 ML; Start 01/29/19 at 14:00 Epoetin Dae-epbx (RETACRIT(non-esrd)) 40,000 unit Mo@1700 SC Last administered on 02/10/19 18:06; Admin Dose 40,000 UNIT; Start 02/03/19 at 17:00 Insulin Glargine (Lantus) 10 units DAILY@2000 SC Last administered on 02/10/19 21:41; Admin Dose 10 UNITS; Start 01/31/19 at 20:00 Aztreonam 1 gm/ Dextrose 50 ml @ 100 mls/hr Q12 IVPB Last administered on 02/13/19 08:45; Admin Dose 100 MLS/HR; Start 02/03/19 at 21:00 Metoprolol Tartrate (Lopressor) 12.5 mg BID PO Last administered on 02/13/19 08:49; Admin Dose 12.5 MG; Start 02/05/19 at 21:00 Eye Lubricant (Refresh Plus) 1 drop QID BOTH EYES Last administered on 02/13/19 08:44; Admin Dose 1 DROP; Start 02/06/19 at 09:00 Eye Lubricant (Akwa Oint) 1 applic HS LEFT EYE Last administered on 02/12/19 22:24; Admin Dose 1 APPLIC; Start 02/06/19 at 21:00 Multi-Ingredient Ointment (Aquaphor Oint 52.5 Gm) 1 applic BID TOP Last administered on 02/12/19 22:23; Admin Dose 1 APPLIC; Start 02/06/19 at 22:40 Lansoprazole (Prevacid) 30 mg BID@0600,1800 NGT Last administered on 02/13/19 05:25; Admin Dose 30 MG; Start 02/07/19 at 18:00 Tobramycin Sulfate/Sodium Chloride (Nilesh Inhal) 300 mg BID RESP THERAPY NEB Last administered on 02/13/19 08:18; Admin Dose 300 MG; Start 02/08/19 at 09:00 Morphine Sulfate (morphine) 0.5 mg Q4H PRN IV SEVERE PAIN LEVEL 7-10 Last administered on 02/10/19 18:18; Admin Dose 0.5 MG; Start 02/08/19 at 19:00 Vancomycin HCl 750 mg/Dextrose 250 ml @ 125 mls/hr Q72H IVPB Last administered on 02/12/19 22:24; Admin Dose 125 MLS/HR; Start 02/09/19 at 23:00 Furosemide (Lasix) 20 mg BID IV Last administered on 02/13/19 08:46; Admin Dose 20 MG; Start 02/13/19 at 00:30 Assessment/Plan Hospital Course (Demo Recall) IMP: 1. s/p Acute hypoxemic respiratory failure likely secondary to combination of volume overload and pneumonia, now requiring bilevel ventilation again. 2. Encephalopathy underlying dementia versus toxic metabolic, appears to be slowly improving possibly secondary to elevated sodium. 3. Valvular heart disease 4. Severe dysphagia 5. Status post septic shock likely secondary to above, persistent leukocytosis. 6. Anemia, no active GI bleeding 7. Skin diffuse excoriating skin lesion unclear etiology not consistent with history of "red man" syndrome. or pemphigus. Likely drug reaction. 8. Anemia RECS: 1. Monitor respiratory status closely. 2. Continue broad-spectrum antibiotics 3. Infectious work-up as per ID 4. Monitor H&H 5. Palliative care consult appreciated 6. Electrolytes per nephrology. 7. Trial off bilevel ventilation, aspiration precautions elevation of head of bed Overall prognosis remains guarded Palliative care recommendations Consider [place]. DIANA MCRAE MD, [facility] February 13, 2019 11:11
[2019-02-13] MEDS: AQUAPHOR 52.5 GM OINT TOP SCH ×2 (12:26→21:31)
[2019-02-13] MEDS: NYSTATIN 30 GM POWDER BTL TOP SCH ×2 (12:26→21:31)
--- NOTE | 2019-02-13 13:09 | CONS ---
Assessment/Plan Assessment/Plan Hospital Course (Demo Recall) 88 yo male with multiple medical problems including DM, CRF, RA, PVD and chronic afib on Eliquis who presented to [facility] 01/05/19 with severe normocytic anemia and Hg ~7. 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 # Anemia-normocytic -Hg stable around 7. 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 Elevated Methylmalonic acid level noted -s/p IV iron. will recheck iron panel at this time -continue vitamin b12 weekly as vitamin b12 was low normal and methylmalonic acid was elevated. Continue folate as well. -No evidence of hemolysis at this time. -Transfuse to keep Hgb > 7. 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 -This may be a pseudocyst or a precancerous pancreatic lesion. -It has been growing in size but patient is asymptomatic. EUS with biopsy is recommended and can either be done inpatient or outpatient setting. -The patient at this time is unlikely a candidate for a whipple surgery however. Thank you to Dr. Alatorre for allowing [facility] to participate in the care of this patient. A total of 40 minutes was spent in consultation with this patient and all his questions were answered. Consultation Date/Type/Reason Admit Date/Time Jan 17, 2019 at 15:58 Initial Consult Date 01/18/19 Type of Consult hematology Reason for Consultation anemia Requesting Provider: IVAN AKHTAR MD Date/Time of Note DATE: 02/13/19 TIME: 13:08 24 HR Interval Summary Free Text/Dictation remains confused. getting breathing treatment Exam/Review of Systems Exam Vitals Vital Signs Date Temp Pulse Resp B/P (MAP) Pulse Ox O2 O2 Flow FiO2 Time Delivery Rate 02/13/19 18 112/52 98 12:05 (72) 02/13/19 80 10:00 02/13/19 Nasal 6.0 08:30 Cannula 02/13/19 98.9 04:36 02/12/19 30 01:08 Intake and Output 02/12/19 02/12/19 02/13/19 1515:00 23:00 07:00 IntakeIntake Total 480 ml OutputOutput Total 1150 ml 800 ml BalanceBalance -1150 ml -320 ml Constitutional: alert, distress, frail Psych: no complaints, anxiety, confusion, depression Eyes: nl conjunctiva ENMT: nl external ears & nose Neck: supple Respiratory: clear to auscultation Cardiovascular: regular rate and rhythm Gastrointestinal: soft Musculoskeletal: nl extremities to inspection Results Result Diagram: 02/13/19 0627 02/13/1927 Results 24hrs Laboratory Tests Test 02/12/19 14:31 02/12/19 17:48 02/12/19 21:20 02/13/19 01:15 Bedside Glucose 80 80 75 122 Test 02/13/19 05:26 02/13/19 06:27 02/13/19 08:24 02/13/19 12:13 Bedside Glucose 153 193 223 H White Blood Count 10.0 Red Blood Count 2.61 L Hemoglobin 7.4 L Hematocrit 25.2 L Mean Corpuscular 96.6 Volume Mean Corpuscular 28.4 L Hemoglobin Mean Corpuscular 29.4 L Hemoglobin Concent Red Cell 21.4 H Distribution Width Platelet Count 110 L Mean Platelet Volume 12.8 H Immature 0.400 Granulocytes % Neutrophils % 77.7 H Lymphocytes % 17.6 Monocytes % 3.4 Eosinophils % 0.7 Basophils % 0.2 Nucleated Red Blood 0.6 H Cells % Immature 0.040 H Granulocytes # Neutrophils # 7.8 H Lymphocytes # 1.8 Monocytes # 0.3 Eosinophils # 0.1 Basophils # 0.0 Nucleated Red Blood 0.1 H Cells # Sodium Level 150 H Potassium Level 4.4 Chloride Level 117 H Carbon Dioxide Level 30 Anion Gap 3 L Blood Urea Nitrogen 84 H Creatinine 1.88 H Est Glomerular Filtrat Rate mL/min Glucose Level 142 # Calcium Level 8.0 L Phosphorus Level 5.2 H Magnesium Level 2.2 Medications Medication Current Medications Lactulose (Enulose) 20 gm DAILY PRN PO CONSTIPATION; Start 01/17/19 at 18:17 Acetaminophen (Tylenol Tab) 650 mg Q4H PRN PO PAIN Last administered on 02/11/19at 21:29; Admin Dose 650 MG; Start 01/17/19 at 18:17 Miscellaneous Information (Pending [facility] Order For Wound Care) This patient ramirez... PRN PRN XX WOUND CARE; Start 01/17/19 at 18:17 Albuterol/ Ipratropium (Duoneb) 3 ml Q2H RESP THERAPY PRN HHN SHORTNESS OF BREATH Last administered on 02/13/19at 05:52; Admin Dose 3 ML; Start 01/17/19 at 18:17 Bisacodyl (Dulcolax) 10 mg BID PRN PO CONSTIPATION; Start 01/17/19 at 18:17; Status Hold Folic Acid (Folic Acid) 1 mg DAILY PO Last administered on 02/13/19at 08:44; Admin Dose 1 MG; Start 01/17/19 at 18:17 Latanoprost (Xalatan) 1 drop HS BOTH EYES Last administered on 02/12/19at 22:23; Admin Dose 1 DROP; Start 01/17/19 at 18:17 Nitroglycerin (Nitroglycerin (Sl Tab) 0.4 Mg) 0.4 tab Q5M PRN SL CHEST PAIN; Start 01/17/19 at 18:17 Nystatin (Nystatin Powder) 1 applic BID TOP Last administered on 02/13/19at 1 2:26; Admin Dose 1 APPLIC; Start 01/17/19 at 18:17 IV Flush (NS 3 ml) 3 ml PER PROTOCOL IV ; Start 01/17/19 at 18:17 Miscellaneous Information 1 ea NOTE XX ; Start 01/17/19 at 18:17 Glucose (Glutose) 15 gm Q15M PRN PO DECREASED GLUCOSE; Start 01/17/19 at 18:17 Glucose (Glutose) 22.5 gm Q15M PRN PO DECREASED GLUCOSE; Start 01/17/19 at 18:17 Dextrose (D50w Syringe) 25 ml Q15M PRN IV DECREASED GLUCOSE Last administered on 02/11/19at 18:27; Admin Dose 25 ML; Start 01/17/19 at 18:17 Dextrose (D50w Syringe) 50 ml Q15M PRN IV DECREASED GLUCOSE; Start 01/17/19 at 18:17 Glucagon (Glucagen) 1 mg Q15M PRN IM DECREASED GLUCOSE Last administered on 02/11/19at 17:55; Admin Dose 1 MG; Start 01/17/19 at 18:17 Glucose (Glutose) 15 gm Q15M PRN BUCCAL DECREASED GLUCOSE; Start 01/17/19 at 18:17 Ascorbic Acid (Vitamin C) 250 mg DAILY PO Last administered on 02/13/19at 08:44; Admin Dose 250 MG; Start 01/17/19 at 18:17 Bisacodyl (Dulcolax Supp) 10 mg DAILY PRN [place] CONSTIPATION; Start 01/17/19 at 18:17 Zinc Acetate/ Diphenhydramine (Benadryl 2% Cr) 1 applic Q6H PRN TOP ITCHING Last administered on 01/26/19at 07:54; Admin Dose 1 APPLIC; Start 01/19/19 at 16:37 IV Flush (NS 10 ml) 10 ml PRN PRN IV IV PROTOCOL; Start 01/20/19 at 14:30 Cyanocobalamin (Vitamin B12 Inj) 1,000 mcg Q7D IM Last administered on 02/10/19at 09:50; Admin Dose 1,000 MCG; Start 02/03/19 at 09:00 Metoprolol Tartrate (Lopressor) 5 mg Q4H PRN IV HR>110 Hold SBP<100; Start 01/26/19 at 14:30 Vancomycin HCl (Vanco Iv Per Pharmacy) VANCOMYCIN PER PHARMACY PER PROTOCOL XX ; Start 01/27/19 at 12:00 Enoxaparin Sodium (Lovenox) 60 mg DAILY SC Last administered on 02/03/19at 08:06; Admin Dose 60 MG; Start 01/28/19 at 09:00; Status Hold Atorvastatin Calcium (Lipitor) 40 mg QHS NGT Last administered on 02/12/19at 22:21; Admin Dose 40 MG; Start 01/28/19 at 21:00 Docusate Sodium (Colace Liquid Cup) 100 mg BID NGT ; Start 01/27/19 at 22:00; Status Hold Terazosin HCl (Hytrin) 10 mg HS NGT Last administered on 02/12/19at 22:21; Admin Dose 10 MG; Start 01/28/19 at 21:00 Levothyroxine Sodium (Synthroid) 125 mcg BEFORE BREAKFAST NGT Last administered on 02/13/19at 05:25; Admin Dose 125 MCG; Start 01/28/19 at 07:00 Ferrous Sulfate (Feosol Liquid Cup) 300 mg WITH MEALS GTB Last administered on 02/13/19 12:26; Admin Dose 300 MG; Start 01/28/19 at 11:30 Multivitamins (Multivitamin) 30 ml DAILY GTB Last administered on 02/13/19 08:46; Admin Dose 30 ML; Start 01/28/19 at 11:00 Diagnostic Test (Pha) (Accu-Chek) 1 ea Q4 XX Last administered on 02/13/19 12:22; Admin Dose 1 EA; Start 01/28/19 at 13:00 Nystatin/ Triamcinolone Acetonide (Mycolog Oint) 1 applic BID TOP Last administered on 02/13/19 09:00; Admin Dose 1 APPLIC; Start 01/28/19 at 22:30 Insulin Aspart (Novolog Insulin Pen) NOVOLOG *MILD* ALGORI... Q4 SC Last administered on 02/13/19 12:21; Admin Dose 3 UNIT; Start 01/29/19 at 05:00 Albuterol/ Ipratropium (Duoneb) 3 ml Q6HWA RESP THERAPY HHN Last administered on 02/13/19 08:18; Admin Dose 3 ML; Start 01/29/19 at 14:00 Epoetin Dae-epbx (RETACRIT(non-esrd)) 40,000 unit Mo@1700 SC Last administered on 02/10/19 18:06; Admin Dose 40,000 UNIT; Start 02/03/19 at 17:00 Insulin Glargine (Lantus) 10 units DAILY@2000 SC Last administered on 02/10/19 21:41; Admin Dose 10 UNITS; Start 01/31/19 at 20:00 Aztreonam 1 gm/ Dextrose 50 ml @ 100 mls/hr Q12 IVPB Last administered on 02/13/19 08:45; Admin Dose 100 MLS/HR; Start 02/03/19 at 21:00 Metoprolol Tartrate (Lopressor) 12.5 mg BID PO Last administered on 02/13/19 08:49; Admin Dose 12.5 MG; Start 02/05/19 at 21:00 Eye Lubricant (Refresh Plus) 1 drop QID BOTH EYES Last administered on 02/13/19 12:26; Admin Dose 1 DROP; Start 02/06/19 at 09:00 Eye Lubricant (Akwa Oint) 1 applic HS LEFT EYE Last administered on 02/12/19 22:24; Admin Dose 1 APPLIC; Start 02/06/19 at 21:00 Multi-Ingredient Ointment (Aquaphor Oint 52.5 Gm) 1 applic BID TOP Last administered on 02/13/19 12:26; Admin Dose 1 APPLIC; Start 02/06/19 at 22:40 Lansoprazole (Prevacid) 30 mg BID@0600,1800 NGT Last administered on 02/13/19 05:25; Admin Dose 30 MG; Start 02/07/19 at 18:00 Tobramycin Sulfate/Sodium Chloride (Nilesh Inhal) 300 mg BID RESP THERAPY NEB Last administered on 02/13/19 08:18; Admin Dose 300 MG; Start 02/08/19 at 09:00 Morphine Sulfate (morphine) 0.5 mg Q4H PRN IV SEVERE PAIN LEVEL 7-10 Last administered on 02/10/19 18:18; Admin Dose 0.5 MG; Start 02/08/19 at 19:00 Vancomycin HCl 750 mg/Dextrose 250 ml @ 125 mls/hr Q72H IVPB Last administered on 02/12/19 22:24; Admin Dose 125 MLS/HR; Start 02/09/19 at 23:00 Furosemide (Lasix) 20 mg BID IV Last administered on 02/13/19 08:46; Admin Dose 20 MG; Start 02/13/19 at 00:30 OREN MARSH M.D. February 13, 2019 13:09
--- NOTE | 2019-02-13 13:41 | PN ---
Date/Time of Note Date/Time of Note DATE: 02/13/19 TIME: 13:36 Assessment/Plan VTE Prophylaxis Risk score (from [facility])>0 risk: 11 SCD applied (from [facility]): No SCD contraindicated: bilateral LE trauma Pharmacological prophylaxis: NA/contraindicated Pharm contraindication: blood coag disorder Lines/Catheters IV [facility] Type (from [facility] Central Line Central line still needed: Yes Urinary Cath still in place: Yes Reason Cath still needed: urinary retention Assessment/Plan Hospital Course 1. Sepsis, WBC down 2. Severe anemia 3. Chronic renal failure likely secondary to sepsis 4. Hypertension. 5. Hyperlipidemia. 6. Hypothyroidism. 7. Normocytic normochromic chronic anemia with recent hemoglobin drop. 8. Bilateral groin cellulitis more likely associated with mateus, patches in groin and axilla bilaterally. skin peeling 9. History of rheumatoid arthritis with joint deformities. 10. Diabetes type 2. 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 Peripheral vascular disease. 13. Chronic a.fib 14. right arm edema, better 15. Neoplasm per CT abdomen. 4.3 cm cystic lesion along the pancreas body, enlarged since 10/10/2012 (previously 2.4 cm). 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 16. Possible allergic skin reaction, biopsy is obtained 17. altered mental status delirium vs stroke, resolved 18. Hypernatremia 156 from 152 19. Eye muscle paralysis. Assessment/Plan - Na 150>feeding flash water 250 q 4 -gentle d5w - nebs, BIPAP - GI consult, spoke to dr Frost for GT placement later - cw aztreonam/vanco/tobra IN d5w -c w keppra - GI lansoprasole -DVT prophylaxis unable to tolerate -skin care Result Diagram: 02/13/1927 02/13/1927 Results 24hrs Laboratory Tests Test 02/12/19 14:31 02/12/19 17:48 02/12/19 21:20 02/13/19 01:15 Bedside Glucose 80 80 75 122 Test 02/13/19 05:26 02/13/19 06:27 02/13/19 08:24 02/13/19 12:13 Bedside Glucose 153 193 223 H White Blood Count 10.0 Red Blood Count 2.61 L Hemoglobin 7.4 L Hematocrit 25.2 L Mean Corpuscular 96.6 Volume Mean Corpuscular 28.4 L Hemoglobin Mean Corpuscular 29.4 L Hemoglobin Concent Red Cell 21.4 H Distribution Width Platelet Count 110 L Mean Platelet Volume 12.8 H Immature 0.400 Granulocytes % Neutrophils % 77.7 H Lymphocytes % 17.6 Monocytes % 3.4 Eosinophils % 0.7 Basophils % 0.2 Nucleated Red Blood 0.6 H Cells % Immature 0.040 H Granulocytes # Neutrophils # 7.8 H Lymphocytes # 1.8 Monocytes # 0.3 Eosinophils # 0.1 Basophils # 0.0 Nucleated Red Blood 0.1 H Cells # Sodium Level 150 H Potassium Level 4.4 Chloride Level 117 H Carbon Dioxide Level 30 Anion Gap 3 L Blood Urea Nitrogen 84 H Creatinine 1.88 H Est Glomerular Filtrat Rate mL/min Glucose Level 142 # Calcium Level 8.0 L Phosphorus Level 5.2 H Magnesium Level 2.2 Subjective 24 Hr Interval Summary Constitutional: disoriented Exam/Review of Systems Exam Vitals Vital Signs Date Temp Pulse Resp B/P (MAP) Pulse Ox O2 O2 Flow FiO2 Time Delivery Rate 02/13/19 18 112/52 98 12:05 (72) 02/13/19 80 10:00 02/13/19 Nasal 6.0 08:30 Cannula 02/13/19 98.9 04:36 02/12/19 30 01:08 Intake and Output 02/12/19 02/12/19 02/13/19 1515:00 23:00 07:00 IntakeIntake Total 480 ml OutputOutput Total 1150 ml 800 ml BalanceBalance -1150 ml -320 ml Exam NG tube Constitutional: frail Psych: confusion Head: normocephalic Eyes: nl conjunctiva Neck: supple Respiratory: diminished breath sounds Cardiovascular: irregular rhythm Gastrointestinal: soft Skin: other (peeling) Results Results 24hrs Laboratory Tests Test 02/12/19 14:31 02/12/19 17:48 02/12/19 21:20 02/13/19 01:15 Bedside Glucose 80 80 75 122 Test 02/13/19 05:26 02/13/19 06:27 02/13/19 08:24 02/13/19 12:13 Bedside Glucose 153 193 223 H White Blood Count 10.0 Red Blood Count 2.61 L Hemoglobin 7.4 L Hematocrit 25.2 L Mean Corpuscular 96.6 Volume Mean Corpuscular 28.4 L Hemoglobin Mean Corpuscular 29.4 L Hemoglobin Concent Red Cell 21.4 H Distribution Width Platelet Count 110 L Mean Platelet Volume 12.8 H Immature 0.400 Granulocytes % Neutrophils % 77.7 H Lymphocytes % 17.6 Monocytes % 3.4 Eosinophils % 0.7 Basophils % 0.2 Nucleated Red Blood 0.6 H Cells % Immature 0.040 H Granulocytes # Neutrophils # 7.8 H Lymphocytes # 1.8 Monocytes # 0.3 Eosinophils # 0.1 Basophils # 0.0 Nucleated Red Blood 0.1 H Cells # Sodium Level 150 H Potassium Level 4.4 Chloride Level 117 H Carbon Dioxide Level 30 Anion Gap 3 L Blood Urea Nitrogen 84 H Creatinine 1.88 H Est Glomerular Filtrat Rate mL/min Glucose Level 142 # Calcium Level 8.0 L Phosphorus Level 5.2 H Magnesium Level 2.2 Medications Medication Current Medications Lactulose (Enulose) 20 gm DAILY PRN PO CONSTIPATION; Start 01/17/19 at 18:17 Acetaminophen (Tylenol Tab) 650 mg Q4H PRN PO PAIN Last administered on 02/11/19at 21:29; Admin Dose 650 MG; Start 01/17/19 at 18:17 Miscellaneous Information (Pending [facility] Order For Wound Care) This patient ramirez... PRN PRN XX WOUND CARE; Start 01/17/19 at 18:17 Albuterol/ Ipratropium (Duoneb) 3 ml Q2H RESP THERAPY PRN HHN SHORTNESS OF BREATH Last administered on 02/13/19at 05:52; Admin Dose 3 ML; Start 01/17/19 at 18:17 Bisacodyl (Dulcolax) 10 mg BID PRN PO CONSTIPATION; Start 01/17/19 at 18:17; Status Hold Folic Acid (Folic Acid) 1 mg DAILY PO Last administered on 02/13/19at 08:44; Admin Dose 1 MG; Start 01/17/19 at 18:17 Latanoprost (Xalatan) 1 drop HS BOTH EYES Last administered on 02/12/19at 22:23; Admin Dose 1 DROP; Start 01/17/19 at 18:17 Nitroglycerin (Nitroglycerin (Sl Tab) 0.4 Mg) 0.4 tab Q5M PRN SL CHEST PAIN; Start 01/17/19 at 18:17 Nystatin (Nystatin Powder) 1 applic BID TOP Last administered on 02/13/19at 12:26; Admin Dose 1 APPLIC; Start 01/17/19 at 18:17 IV Flush (NS 3 ml) 3 ml PER PROTOCOL IV ; Start 01/17/19 at 18:17 Miscellaneous Information 1 ea NOTE XX ; Start 01/17/19 at 18:17 Glucose (Glutose) 15 gm Q15M PRN PO DECREASED GLUCOSE; Start 01/17/19 at 18:17 Glucose (Glutose) 22.5 gm Q15M PRN PO DECREASED GLUCOSE; Start 01/17/19 at 18:17 Dextrose (D50w Syringe) 25 ml Q15M PRN IV DECREASED GLUCOSE Last administered on 02/11/19at 18:27; Admin Dose 25 ML; Start 01/17/19 at 18:17 Dextrose (D50w Syringe) 50 ml Q15M PRN IV DECREASED GLUCOSE; Start 01/17/19 at 18:17 Glucagon (Glucagen) 1 mg Q15M PRN IM DECREASED GLUCOSE Last administered on 02/11/19at 17:55; Admin Dose 1 MG; Start 01/17/19 at 18:17 Glucose (Glutose) 15 gm Q15M PRN BUCCAL DECREASED GLUCOSE; Start 01/17/19 at 18:17 Ascorbic Acid (Vitamin C) 250 mg DAILY PO Last administered on 02/13/19at 08:44; Admin Dose 250 MG; Start 01/17/19 at 18:17 Bisacodyl (Dulcolax Supp) 10 mg DAILY PRN MD CONSTIPATION; Start 01/17/19 at 18:17 Zinc Acetate/ Diphenhydramine (Benadryl 2% Cr) 1 applic Q6H PRN TOP ITCHING Last administered on 01/26/19at 07:54; Admin Dose 1 APPLIC; Start 01/19/19 at 16:37 IV Flush (NS 10 ml) 10 ml PRN PRN IV IV PROTOCOL; Start 01/20/19 at 14:30 Cyanocobalamin (Vitamin B12 Inj) 1,000 mcg Q7D IM Last administered on 02/10/19at 09:50; Admin Dose 1,000 MCG; Start 02/03/19 at 09:00 Metoprolol Tartrate (Lopressor) 5 mg Q4H PRN IV HR>110 Hold SBP<100; Start 01/26/19 at 14:30 Vancomycin HCl (Vanco Iv Per Pharmacy) VANCOMYCIN PER PHARMACY PER PROTOCOL XX ; Start 01/27/19 at 12:00 Enoxaparin Sodium (Lovenox) 60 mg DAILY SC Last administered on 02/03/19 08:06; Admin Dose 60 MG; Start 01/28/19 at 09:00; Status Hold Atorvastatin Calcium (Lipitor) 40 mg QHS NGT Last administered on 02/12/19 22:21; Admin Dose 40 MG; Start 01/28/19 at 21:00 Docusate Sodium (Colace Liquid Cup) 100 mg BID NGT ; Start 01/27/19 at 22:00; Status Hold Terazosin HCl (Hytrin) 10 mg HS NGT Last administered on 02/12/19 22:21; Admin Dose 10 MG; Start 01/28/19 at 21:00 Levothyroxine Sodium (Synthroid) 125 mcg BEFORE BREAKFAST NGT Last administered on 02/13/19 05:25; Admin Dose 125 MCG; Start 01/28/19 at 07:00 Ferrous Sulfate (Feosol Liquid Cup) 300 mg WITH MEALS GTB Last administered on 02/13/19 12:26; Admin Dose 300 MG; Start 01/28/19 at 11:30 Multivitamins (Multivitamin) 30 ml DAILY GTB Last administered on 02/13/19 08:46; Admin Dose 30 ML; Start 01/28/19 at 11:00 Diagnostic Test (Pha) (Accu-Chek) 1 ea Q4 XX Last administered on 02/13/19 12 :22; Admin Dose 1 EA; Start 01/28/19 at 13:00 Nystatin/ Triamcinolone Acetonide (Mycolog Oint) 1 applic BID TOP Last administered on 02/13/19 09:00; Admin Dose 1 APPLIC; Start 01/28/19 at 22:30 Insulin Aspart (Novolog Insulin Pen) NOVOLOG *MILD* ALGORI... Q4 SC Last administered on 02/13/19 12:21; Admin Dose 3 UNIT; Start 01/29/19 at 05:00 Albuterol/ Ipratropium (Duoneb) 3 ml Q6HWA RESP THERAPY HHN Last administered on 02/13/19 08:18; Admin Dose 3 ML; Start 01/29/19 at 14:00 Epoetin Dae-epbx (RETACRIT(non-esrd)) 40,000 unit Mo@1700 SC Last administered on 02/10/19 18:06; Admin Dose 40,000 UNIT; Start 02/03/19 at 17:00 Insulin Glargine (Lantus) 10 units DAILY@2000 SC Last administered on 02/10/19 21:41; Admin Dose 10 UNITS; Start 01/31/19 at 20:00 Aztreonam 1 gm/ Dextrose 50 ml @ 100 mls/hr Q12 IVPB Last administered on 02/13/19 08:45; Admin Dose 100 MLS/HR; Start 02/03/19 at 21:00 Metoprolol Tartrate (Lopressor) 12.5 mg BID PO Last administered on 02/13/19 08:49; Admin Dose 12.5 MG; Start 02/05/19 at 21:00 Eye Lubricant (Refresh Plus) 1 drop QID BOTH EYES Last administered on 02/13/19 12:26; Admin Dose 1 DROP; Start 02/06/19 at 09:00 Eye Lubricant (Akwa Oint) 1 applic HS LEFT EYE Last administered on 02/12/19 22:24; Admin Dose 1 APPLIC; Start 02/06/19 at 21:00 Multi-Ingredient Ointment (Aquaphor Oint 52.5 Gm) 1 applic BID TOP Last administered on 02/13/19 12:26; Admin Dose 1 APPLIC; Start 02/06/19 at 22:40 Lansoprazole (Prevacid) 30 mg BID@0600,1800 NGT Last administered on 02/13/19 05:25; Admin Dose 30 MG; Start 02/07/19 at 18:00 Tobramycin Sulfate/Sodium Chloride (Nilesh Inhal) 300 mg BID RESP THERAPY NEB Last administered on 02/13/19 08:18; Admin Dose 300 MG; Start 02/08/19 at 09:00 Morphine Sulfate (morphine) 0.5 mg Q4H PRN IV SEVERE PAIN LEVEL 7-10 Last administered on 02/10/19 18:18; Admin Dose 0.5 MG; Start 02/08/19 at 19:00 Vancomycin HCl 750 mg/Dextrose 250 ml @ 125 mls/hr Q72H IVPB Last administered on 02/12/19at 22:24; Admin Dose 125 MLS/HR; Start 02/09/19 at 23:00 Furosemide (Lasix) 20 mg BID IV Last administered on 02/13/19at 08:46; Admin Dose 20 MG; Start 02/13/19 at 00:30 COOPER CARO February 13, 2019 13:41
--- NOTE | 2019-02-13 15:16 | CONS ---
Assessment/Plan Assessment/Plan Hospital Course 88 yo M with multiple comorbidities who initially presented for evaluation of hiccups. He was noted to become acutely altered... for which neurology is consulted. He has been transferred to the ICU on several occasions due to ams in the context of respiratory distress and ? seizures.. The clinical picture suggests an acute toxic-metabolic encephalopathy.. Meningoencephalitis is, though, not entirely excluded. MRI brain is without acute ischemia, though notable for chronic infarcts. EEG was without ongoing epileptiform activity LP for CSF valuation was declined by medical decision makers. P: OK to Cont Keppra 500 BID for now Ativan IV PRN prolonged seizure (> 5 min) Agree w/ ASA/Lipitor daily pending the above Limit sedating medications where possible Other medical management per primary Will follow Consultation Date/Type/Reason Admit Date/Time Jan 17, 2019 at 15:58 Type of Consult Neurology Reason for Consultation ams; eval for stroke Requesting Provider: IVAN AKHTAR MD Date/Time of Note DATE: 02/13/19 TIME: 15:15 24 HR Interval Summary Free Text/Dictation Continues acute care. Exam Vital Signs Vitals Vital Signs Date Temp Pulse Resp B/P (MAP) Pulse Ox O2 O2 Flow FiO2 Time Delivery Rate 02/13/19 6.0 14:34 02/13/19 20 92 Nasal 14:30 Cannula 02/13/19 71 14:02 02/13/19 94.7 117/57 14:00 (77) 02/12/19 30 01:08 Intake and Output 02/12/19 02/12/19 02/13/19 1515:00 23:00 07:00 IntakeIntake Total 480 ml OutputOutput Total 1150 ml 800 ml BalanceBalance -1150 ml -320 ml Exam PE: Gen Appearance: No Apparent Distress HEENT: Normocephalic Cardiovascular: Regular rate Abdomen: Soft Extremities: Dry, skin peeling NE: The patient was asleep, though arousable. Sparsely verbal. Unable to track. Follows simple appendicular commands. Cranial nerve examination was limited by mental status. Pupils were equal and reactive to light. There was no afferent pupillary defect. Funduscopic examination was limited. Face was grossly symmetric. Tone was normal. Muscle bulk was normal. I did not see fasciculations. The patient was generally weak. Coordination and gait testing was limited by mental status. Arm and leg reflexes were within normal limits and symmetric. Gray's sign was absent. Plantar responses were flexor. NEGRA CORONA NP February 13, 2019 15:16
--- NOTE | 2019-02-13 15:40 | CONS ---
Assessment/Plan Assessment/Plan Hospital Course (Demo Recall) No acute changes patient is noncommunicative in no distress hypothermic WBC today 10 platelets 110 neutrophils 77.7 BUN 84 creatinine 1.88 Antimicrobials: Vancomycin, aztreonam, tobramycin inhalation Indwelling: Left subclavian triple-lumen catheter, Wade catheter, NG tube Allergy: Penicillin, sulfa Physical examination: Obese well-developed chronically ill-appearing - [place] man who is lethargic, in no distress. Head atraumatic normocephalic sclera nonicteric. Neck is supple chest rise symmetrical breath sounds diminished bases. Heart: S1-S2. Abdomen obese soft bowel sounds present extremities without cyanosis, bilateral edema Assessment: 1. Ongoing sepsis s/p shock 2. Acute hypoxemic respiratory failure, likely ongoing aspiration 2. Acute encephalopathy 3. Seizures 4. Healthcare acquired pneumonia 5. Coronary artery disease/history of CABG 6. Advanced rheumatoid arthritis 5. Chronic atrial fibrillation 6. Diabetes 7. BPH 9. Acute on chronic anemia===> s/p EGD/colonoscopy 01/09/19 10. Status post right epididymitis 11. Pancreatic lesion per CT, unlikely neoplasm per oncology notes 12. 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 Skin lesions, s/p punch bx, pathology consistent with allergic reaction Plan: Remains unchanged, continue present care, continue antibiotics for couple more days, prognosis very poor Consultation Date/Type/Reason Admit Date/Time Jan 17, 2019 at 15:58 Initial Consult Date 01/18/19 Type of Consult id Requesting Provider: IVAN AKHTAR MD Date/Time of Note DATE: 02/13/19 TIME: 15:39 Exam/Review of Systems Exam Vitals Vital Signs Date Temp Pulse Resp B/P (MAP) Pulse Ox O2 O2 Flow FiO2 Time Delivery Rate 02/13/19 6.0 14:34 02/13/19 20 92 Nasal 14:30 Cannula 02/13/19 71 14:02 02/13/19 94.7 117/57 14:00 (77) 02/12/19 30 01:08 Intake and Output 02/12/19 02/12/19 02/13/19 1515:00 23:00 07:00 IntakeIntake Total 480 ml OutputOutput Total 1150 ml 800 ml BalanceBalance -1150 ml -320 ml Results Result Diagram: 02/13/1962602/13/19 0627 Results 24hrs Laboratory Tests Test 02/12/19 17:48 02/12/19 21:20 02/13/19 01:15 02/13/19 05:26 Bedside Glucose 80 75 122 153 Test 02/13/19 06:27 02/13/19 08:24 02/13/19 12:13 White Blood Count 10.0 Red Blood Count 2.61 L Hemoglobin 7.4 L Hematocrit 25.2 L Mean Corpuscular 96.6 Volume Mean Corpuscular 28.4 L Hemoglobin Mean Corpuscular 29.4 L Hemoglobin Concent Red Cell 21.4 H Distribution Width Platelet Count 110 L Mean Platelet Volume 12.8 H Immature 0.400 Granulocytes % Neutrophils % 77.7 H Lymphocytes % 17.6 Monocytes % 3.4 Eosinophils % 0.7 Basophils % 0.2 Nucleated Red Blood 0.6 H Cells % Immature 0.040 H Granulocytes # Neutrophils # 7.8 H Lymphocytes # 1.8 Monocytes # 0.3 Eosinophils # 0.1 Basophils # 0.0 Nucleated Red Blood 0.1 H Cells # Sodium Level 150 H Potassium Level 4.4 Chloride Level 117 H Carbon Dioxide Level 30 Anion Gap 3 L Blood Urea Nitrogen 84 H Creatinine 1.88 H Est Glomerular Filtrat Rate mL/min Glucose Level 142 # Calcium Level 8.0 L Phosphorus Level 5.2 H Magnesium Level 2.2 Bedside Glucose 193 223 H Medications Medication Current Medications Lactulose (Enulose) 20 gm DAILY PRN PO CONSTIPATION; Start 01/17/19 at 18:17 Acetaminophen (Tylenol Tab) 650 mg Q4H PRN PO PAIN Last administered on 02/11/19at 21:29; Admin Dose 650 MG; Start 01/17/19 at 18:17 Miscellaneous Information ([facility]) This patient ramirez ... PRN PRN XX WOUND CARE; Start 01/17/19 at 18:17 Albuterol/ Ipratropium (Duoneb) 3 ml Q2H RESP THERAPY PRN HHN SHORTNESS OF BREATH Last administered on 02/13/19at 05:52; Admin Dose 3 ML; Start 01/17/19 at 18:17 Bisacodyl (Dulcolax) 10 mg BID PRN PO CONSTIPATION; Start 01/17/19 at 18:17; Status Hold Folic Acid (Folic Acid) 1 mg DAILY PO Last administered on 02/13/19 08:44; Admin Dose 1 MG; Start 01/17/19 at 18:17 Latanoprost (Xalatan) 1 drop HS BOTH EYES Last administered on 02/12/19at 22:23; Admin Dose 1 DROP; Start 01/17/19 at 18:17 Nitroglycerin (Nitroglycerin (Sl Tab) 0.4 Mg) 0.4 tab Q5M PRN SL CHEST PAIN; Start 01/17/19 at 18:17 Nystatin (Nystatin Powder) 1 applic BID TOP Last administered on 02/13/19at 12:26; Admin Dose 1 APPLIC; Start 01/17/19 at 18:17 IV Flush (NS 3 ml) 3 ml PER PROTOCOL IV ; Start 01/17/19 at 18:17 Miscellaneous Information 1 ea NOTE XX ; Start 01/17/19 at 18:17 Glucose (Glutose) 15 gm Q15M PRN PO DECREASED GLUCOSE; Start 01/17/19 at 18:17 Glucose (Glutose) 22.5 gm Q15M PRN PO DECREASED GLUCOSE; Start 01/17/19 at 18:17 Dextrose (D50w Syringe) 25 ml Q15M PRN IV DECREASED GLUCOSE Last administered on 02/11/19at 18:27; Admin Dose 25 ML; Start 01/17/19 at 18:17 Dextrose (D50w Syringe) 50 ml Q15M PRN IV DECREASED GLUCOSE; Start 01/17/19 at 18:17 Glucagon (Glucagen) 1 mg Q15M PRN IM DECREASED GLUCOSE Last administered on 02/11/19at 17:55; Admin Dose 1 MG; Start 01/17/19 at 18:17 Glucose (Glutose) 15 gm Q15M PRN BUCCAL DECREASED GLUCOSE; Start 01/17/19 at 18:17 Ascorbic Acid (Vitamin C) 250 mg DAILY PO Last administered on 02/13/19 08:44; Admin Dose 250 MG; Start 01/17/19 at 18:17 Bisacodyl (Dulcolax Supp) 10 mg DAILY PRN RI CONSTIPATION; Start 01/17/19 at 18:17 Zinc Acetate/ Diphenhydramine (Benadryl 2% Cr) 1 applic Q6H PRN TOP ITCHING Last administered on 01/26/19at 07:54; Admin Dose 1 APPLIC; Start 01/19/19 at 16:37 IV Flush (NS 10 ml) 10 ml PRN PRN IV IV PROTOCOL; Start 01/20/19 at 14:30 Cyanocobalamin (Vitamin B12 Inj) 1,000 mcg Q7D IM Last administered on 02/10/19 09:50; Admin Dose 1,000 MCG; Start 02/03/19 at 09:00 Metoprolol Tartrate (Lopressor) 5 mg Q4H PRN IV HR>110 Hold SBP<100; Start 01/26/19 at 14:30 Vancomycin HCl (Vanco Iv Per Pharmacy) VANCOMYCIN PER PHARMACY PER PROTOCOL XX ; Start 01/27/19 at 12:00 Enoxaparin Sodium (Lovenox) 60 mg DAILY SC Last administered on 02/03/19 08:06; Admin Dose 60 MG; Start 01/28/19 at 09:00; Status Hold Atorvastatin Calcium (Lipitor) 40 mg QHS NGT Last administered on 02/12/19 22:21; Admin Dose 40 MG; Start 01/28/19 at 21:00 Docusate Sodium (Colace Liquid Cup) 100 mg BID NGT ; Start 01/27/19 at 22:00; Status Hold Terazosin HCl (Hytrin) 10 mg HS NGT Last administered on 02/12/19 22:21; Admin Dose 10 MG; Start 01/28/19 at 21:00 Levothyroxine Sodium (Synthroid) 125 mcg BEFORE BREAKFAST NGT Last administered on 02/13/19 05:25; Admin Dose 125 MCG; Start 01/28/19 at 07:00 Ferrous Sulfate (Feosol Liquid Cup) 300 mg WITH MEALS GTB Last administered on 02/13/19 12:26; Admin Dose 300 MG; Start 01/28/19 at 11:30 Multivitamins (Multivitamin) 30 ml DAILY GTB Last administered on 02/13/19 08:46; Admin Dose 30 ML; Start 01/28/19 at 11:00 Diagnostic Test (Pha) (Accu-Chek) 1 ea Q4 XX Last administered on 02/13/19 12:22; Admin Dose 1 EA; Start 01/28/19 at 13:00 Nystatin/ Triamcinolone Acetonide (Mycolog Oint) 1 applic BID TOP Last administered on 02/13/19 09:00; Admin Dose 1 APPLIC; Start 01/28/19 at 22:30 Insulin Aspart (Novolog Insulin Pen) NOVOLOG *MILD* ALGORI... Q4 SC Last administered on 02/13/19 12:21; Admin Dose 3 UNIT; Start 01/29/19 at 05:00 Albuterol/ Ipratropium (Duoneb) 3 ml Q6HWA RESP THERAPY HHN Last administered on 02/13/19 14:29; Admin Dose 3 ML; Start 01/29/19 at 14:00 Epoetin Dae-epbx (RETACRIT(non-esrd)) 40,000 unit Mo@1700 SC Last administered on 02/10/19 18:06; Admin Dose 40,000 UNIT; Start 02/03/19 at 17:00 Insulin Glargine (Lantus) 10 units DAILY@2000 SC Last administered on 02/10/19 21:41; Admin Dose 10 UNITS; Start 01/31/19 at 20:00 Aztreonam 1 gm/ Dextrose 50 ml @ 100 mls/hr Q12 IVPB Last administered on 02/13/19 08:45; Admin Dose 100 MLS/HR; Start 02/03/19 at 21:00 Metoprolol Tartrate (Lopressor) 12.5 mg BID PO Last administered on 02/13/19 08:49; Admin Dose 12.5 MG; Start 02/05/19 at 21:00 Eye Lubricant (Refresh Plus) 1 drop QID BOTH EYES Last administered on 02/13/19 12:26; Admin Dose 1 DROP; Start 02/06/19 at 09:00 Eye Lubricant (Akwa Oint) 1 applic HS LEFT EYE Last administered on 02/12/19 22:24; Admin Dose 1 APPLIC; Start 02/06/19 at 21:00 Multi-Ingredient Ointment (Aquaphor Oint 52.5 Gm) 1 applic BID TOP Last administered on 02/13/19 12:26; Admin Dose 1 APPLIC; Start 02/06/19 at 22:40 Lansoprazole (Prevacid) 30 mg BID@0600,1800 NGT Last administered on 02/13/19 05:25; Admin Dose 30 MG; Start 02/07/19 at 18:00 Tobramycin Sulfate/Sodium Chloride (Nilesh Inhal) 300 mg BID RESP THERAPY NEB Last administered on 02/13/19 08:18; Admin Dose 300 MG; Start 02/08/19 at 09:00 Morphine Sulfate (morphine) 0.5 mg Q4H PRN IV SEVERE PAIN LEVEL 7-10 Last administered on 02/10/19 18:18; Admin Dose 0.5 MG; Start 02/08/19 at 19:00 Vancomycin HCl 750 mg/Dextrose 250 ml @ 125 mls/hr Q72H IVPB Last administered on 02/12/19 22:24; Admin Dose 125 MLS/HR; Start 02/09/19 at 23:00 Furosemide (Lasix) 20 mg BID IV Last administered on 02/13/19 08:46; Admin Dose 20 MG; Start 02/13/19 at 00:30 LUCIAN HARKINS NP February 13, 2019 15:40
--- NOTE | 2019-02-13 19:27 | CONS ---
Assessment/Plan Assessment/Plan Hospital Course (Demo Recall) IMPRESSION: 1. Atrial fibrillation, currently rate controlled.-off systemic anticoagulation due to anemia. ON asa only due to anemia 2. Possible congestive heart failure by chest x-ray, which will be diastolic, acute on chronic by most recent echo with an EF of 60%. 3. Tricuspid regurgitation, moderate by most recent echo. 4. Acute on chronic renal failure-mild worsening 5. Possible pneumonia. 6. History of coronary artery disease, status post coronary artery bypass graft surgery. 7. Dyslipidemia. 8. Rheumatoid arthritis. 9. Groin cellulitis. 10. Anemia-worsening again today requiring transfusions PRBC's.Now post-op s/p endoscopy 11. Diabetes mellitus. 12. Sepsis/leukocytosis 14. abdominal mass 15. Rash-all over body with skin chaffing at this time, probable drug reaction 16. Encephalopathy-ongoing. MRI negative for acute CVA 17. coagulopathy-ongoing Recc: -Now transferred to Tele -serial ecg's -Contineu lasix now back to BID and follow volume status closely -Continue statin -Currently off abx's, f/u cx data -Ongoing GI eval of abd mass -ongoing derm eval of rash and continue topical treatment -Continue low dose BB with well controlled HR's Consultation Date/Type/Reason Admit Date/Time Jan 17, 2019 at 15:58 Initial Consult Date 01/18/19 Type of Consult Cardiology Reason for Consultation CHF Requesting Provider: IVAN AKHTAR MD Date/Time of Note DATE: 02/13/19 TIME: 19:22 Exam/Review of Systems Vital Signs Vitals Vital Signs Date Temp Pulse Resp B/P (MAP) Pulse Ox O2 O2 Flow FiO2 Time Delivery Rate 02/13/19 97.9 74 18 110/56 96 18:02 (74) 02/13/19 6.0 14:34 02/13/19 Nasal 14:30 Cannula 02/12/19 30 01:08 Intake and Output 02/12/19 02/12/19 02/13/19 1515:00 23:00 07:00 IntakeIntake Total 480 ml OutputOutput Total 1150 ml 800 ml BalanceBalance -1150 ml -320 ml Exam Exam Review of Systems: CONSTITUTIONAL: No fevers, chills. PULMONARY: No sob CARDIOVASCULAR: No chest pain/palpitations GASTROINTESTINAL: No nausea/vomiting. GENITOURINARY: No hematuria/dysuria. MUSCULOSKELETAL: No myagias/arthalgias. PSYCHIATRIC: The patient denies depression. NEUROLOGIC: No weakness Constitutional: alert Psych: no complaints Head: normocephalic ENMT: mucosa pink and moist Neck: supple, jvd (9 cm water) Respiratory: diminished breath sounds Cardiovascular: regular rate and rhythm Gastrointestinal: soft, non-tender Musculoskeletal: muscle tone (normal) Extremities: edema (trace/B) Neurological: lethargic Labs Result Diagram: 02/13/19 0627 02/13/19 06 Results 24hrs Laboratory Tests Test 02/12/19 21:20 02/13/19 01:15 02/13/19 05:26 02/13/19 06:27 Bedside Glucose 75 122 153 White Blood Count 10.0 Red Blood Count 2.61 L Hemoglobin 7.4 L Hematocrit 25.2 L Mean Corpuscular 96.6 Volume Mean Corpuscular 28.4 L Hemoglobin Mean Corpuscular 29.4 L Hemoglobin Concent Red Cell 21.4 H Distribution Width Platelet Count 110 L Mean Platelet Volume 12.8 H Immature 0.400 Granulocytes % Neutrophils % 77.7 H Lymphocytes % 17.6 Monocytes % 3.4 Eosinophils % 0.7 Basophils % 0.2 Nucleated Red Blood 0.6 H Cells % Immature 0.040 H Granulocytes # Neutrophils # 7.8 H Lymphocytes # 1.8 Monocytes # 0.3 Eosinophils # 0.1 Basophils # 0.0 Nucleated Red Blood 0.1 H Cells # Sodium Level 150 H Potassium Level 4.4 Chloride Level 117 H Carbon Dioxide Level 30 Anion Gap 3 L Blood Urea Nitrogen 84 H Creatinine 1.88 H Est Glomerular Filtrat Rate mL/min Glucose Level 142 # Calcium Level 8.0 L Phosphorus Level 5.2 H Magnesium Level 2.2 Test 02/13/19 08:24 02/13/19 12:13 02/13/19 17:27 Bedside Glucose 193 223 H 168 Medications Medications Current Medications Lactulose (Enulose) 20 gm DAILY PRN PO CONSTIPATION; Start 01/17/19 at 18:17 Acetaminophen (Tylenol Tab) 650 mg Q4H PRN PO PAIN Last administered on 02/11/19at 21:29; Admin Dose 650 MG; Start 01/17/19 at 18:17 Miscellaneous Information (Pending Santyl Order For Wound Care) This patient ramirez... PRN PRN XX WOUND CARE; Start 01/17/19 at 18:17 Albuterol/ Ipratropium (Duoneb) 3 ml Q2H RESP THERAPY PRN HHN SHORTNESS OF BREATH Last administered on 02/13/19at 05:52; Admin Dose 3 ML; Start 01/17/19 at 18:17 Bisacodyl (Dulcolax) 10 mg BID PRN PO CONSTIPATION; Start 01/17/19 at 18:17; Status Hold Folic Acid (Folic Acid) 1 mg DAILY PO Last administered on 02/13/19at 08:44; Admin Dose 1 MG; Start 01/17/19 at 18:17 Latanoprost (Xalatan) 1 drop HS BOTH EYES Last administered on 02/12/19at 22:23; Admin Dose 1 DROP; Start 01/17/19 at 18:17 Nitroglycerin (Nitroglycerin (Sl Tab) 0.4 Mg) 0.4 tab Q5M PRN SL CHEST PAIN; Start 01/17/19 at 18:17 Nystatin (Nystatin Powder) 1 applic BID TOP Last administered on 02/13/19at 12:26; Admin Dose 1 APPLIC; Start 01/17/19 at 18:17 IV Flush (NS 3 ml) 3 ml PER PROTOCOL IV ; Start 01/17/19 at 18:17 Miscellaneous Information 1 ea NOTE XX ; Start 01/17/19 at 18:17 Glucose (Glutose) 15 gm Q15M PRN PO DECREASED GLUCOSE; Start 01/17/19 at 18:17 Glucose (Glutose) 22.5 gm Q15M PRN PO DECREASED GLUCOSE; Start 01/17/19 at 18:17 Dextrose (D50w Syringe) 25 ml Q15M PRN IV DECREASED GLUCOSE Last administered on 02/11/19at 18:27; Admin Dose 25 ML; Start 01/17/19 at 18:17 Dextrose (D50w Syringe) 50 ml Q15M PRN IV DECREASED GLUCOSE; Start 01/17/19 at 18:17 Glucagon (Glucagen) 1 mg Q15M PRN IM DECREASED GLUCOSE Last administered on 02/11/19at 17:55; Admin Dose 1 MG; Start 01/17/19 at 18:17 Glucose (Glutose) 15 gm Q15M PRN BUCCAL DECREASED GLUCOSE; Start 01/17/19 at 18:17 Ascorbic Acid (Vitamin C) 250 mg DAILY PO Last administered on 02/13/19 08:44; Admin Dose 250 MG; Start 01/17/19 at 18:17 Bisacodyl (Dulcolax Supp) 10 mg DAILY PRN [place] CONSTIPATION; Start 01/17/19 at 18:17 Zinc Acetate/ Diphenhydramine (Benadryl 2% Cr) 1 applic Q6H PRN TOP ITCHING Last administered on 01/26/19at 07:54; Admin Dose 1 APPLIC; Start 01/19/19 at 16:37 IV Flush (NS 10 ml) 10 ml PRN PRN IV IV PROTOCOL; Start 01/20/19 at 14:30 Cyanocobalamin (Vitamin B12 Inj) 1,000 mcg Q7D IM Last administered on 02/10/19at 09:50; Admin Dose 1,000 MCG; Start 02/03/19 at 09:00 Metoprolol Tartrate (Lopressor) 5 mg Q4H PRN IV HR>110 Hold SBP<100; Start 01/26/19 at 14:30 Vancomycin HCl (Vanco Iv Per Pharmacy) VANCOMYCIN PER PHARMACY PER PROTOCOL XX ; Start 01/27/19 at 12:00 Enoxaparin Sodium (Lovenox) 60 mg DAILY SC Last administered on 02/03/19at 08:06; Admin Dose 60 MG; Start 01/28/19 at 09:00; Status Hold Atorvastatin Calcium (Lipitor) 40 mg QHS NGT Last administered on 02/12/19at 22 :21; Admin Dose 40 MG; Start 01/28/19 at 21:00 Docusate Sodium (Colace Liquid Cup) 100 mg BID NGT ; Start 01/27/19 at 22:00; Status Hold Terazosin HCl (Hytrin) 10 mg HS NGT Last administered on 02/12/19at 22:21; Admin Dose 10 MG; Start 01/28/19 at 21:00 Levothyroxine Sodium (Synthroid) 125 mcg BEFORE BREAKFAST NGT Last administered on 02/13/19 05:25; Admin Dose 125 MCG; Start 01/28/19 at 07:00 Ferrous Sulfate (Feosol Liquid Cup) 300 mg WITH MEALS GTB Last administered on 02/13/19at 17:24; Admin Dose 300 MG; Start 01/28/19 at 11:30 Multivitamins (Multivitamin) 30 ml DAILY GTB Last administered on 02/13/19 08:46; Admin Dose 30 ML; Start 01/28/19 at 11:00 Diagnostic Test (Pha) (Accu-Chek) 1 ea Q4 XX Last administered on 02/13/19 17:31; Admin Dose 1 EA; Start 01/28/19 at 13:00 Nystatin/ Triamcinolone Acetonide (Mycolog Oint) 1 applic BID TOP Last administered on 02/13/19 09:00; Admin Dose 1 APPLIC; Start 01/28/19 at 22:30 Insulin Aspart (Novolog Insulin Pen) NOVOLOG *MILD* ALGORI... Q4 SC Last administered on 02/13/19 17:30; Admin Dose 1 UNIT; Start 01/29/19 at 05:00 Albuterol/ Ipratropium (Duoneb) 3 ml Q6HWA RESP THERAPY HHN Last administered on 02/13/19 14:29; Admin Dose 3 ML; Start 01/29/19 at 14:00 Epoetin Dae-epbx (RETACRIT(non-esrd)) 40,000 unit Mo@1700 SC Last administered on 02/10/19 18:06; Admin Dose 40,000 UNIT; Start 02/03/19 at 17:00 Insulin Glargine (Lantus) 10 units DAILY@2000 SC Last administered on 02/10/19 21:41; Admin Dose 10 UNITS; Start 01/31/19 at 20:00 Aztreonam 1 gm/ Dextrose 50 ml @ 100 mls/hr Q12 IVPB Last administered on 02/13/19 08:45; Admin Dose 100 MLS/HR; Start 02/03/19 at 21:00 Metoprolol Tartrate (Lopressor) 12.5 mg BID PO Last administered on 02/13/19 08:49; Admin Dose 12.5 MG; Start 02/05/19 at 21:00 Eye Lubricant (Refresh Plus) 1 drop QID BOTH EYES Last administered on 02/13/19 17:24; Admin Dose 1 DROP; Start 02/06/19 at 09:00 Eye Lubricant (Akwa Oint) 1 applic HS LEFT EYE Last administered on 02/12/19 22:24; Admin Dose 1 APPLIC; Start 02/06/19 at 21:00 Multi-Ingredient Ointment (Aquaphor Oint 52.5 Gm) 1 applic BID TOP Last administered on 02/13/19 12:26; Admin Dose 1 APPLIC; Start 02/06/19 at 22:40 Lansoprazole (Prevacid) 30 mg BID@0600,1800 NGT Last administered on 02/13/19 17:24; Admin Dose 30 MG; Start 02/07/19 at 18:00 Tobramycin Sulfate/Sodium Chloride (Nilesh Inhal) 300 mg BID RESP THERAPY NEB Last administered on 02/13/19 08:18; Admin Dose 300 MG; Start 02/08/19 at 09:00 Morphine Sulfate (morphine) 0.5 mg Q4H PRN IV SEVERE PAIN LEVEL 7-10 Last administered on 02/10/19 18:18; Admin Dose 0.5 MG; Start 02/08/19 at 19:00 Vancomycin HCl 750 mg/Dextrose 250 ml @ 125 mls/hr Q72H IVPB Last administered on 02/12/19 22:24; Admin Dose 125 MLS/HR; Start 02/09/19 at 23:00 Furosemide (Lasix) 20 mg BID IV Last administered on 02/13/19 08:46; Admin Dose 20 MG; Start 02/13/19 at 00:30 MARJORIE JAIN February 13, 2019 19:27
[2019-02-13] MEDS: TERAZOSIN 5 MG CAP NGT SCH (21:27)
[2019-02-13] MEDS: ATORVASTATIN 40 MG TAB NGT SCH (21:27)
[2019-02-13] MEDS: LATANOPROST 0.005% 2.5 ML OPH BOTH EYES SCH (21:29)
[2019-02-13] MEDS: OCULAR LUBRICANT 3.5 GM OPH OINT LEFT EYE SCH (21:29)
[2019-02-13] MEDS: INSULIN GLARGINE [LANTus] (100 UNITS/ML) SYG SC SCH (21:35)
[2019-02-14] VITALS (31 sets, daily range): BP systolic 77–112; BP diastolic 30–65; PULSE 72–90; RESP 15–36
[2019-02-14] MEDS ORDERED: SOD CHLORIDE 0.9% 250 ML IV ONE ×2 (00:30→01:30)
[2019-02-14] MEDS: ACCU-CHEK XX SCH ×6 (01:00→21:04)
[2019-02-14] MEDS: INSULIN ASPART [NOVOLOG] 3 ML PEN SC SCH ×6 (01:00→21:00)
[2019-02-14] MEDS ORDERED: NORepinephrine 8MG/250 ML (PMX 250 ML IV SCH (03:00)
[2019-02-14] MEDS ORDERED: ALBUMIN HUMAN 25% 100 ML IV ONE (03:00)
--- NOTE | 2019-02-14 05:29 | CONS ---
Assessment/Plan Assessment/Plan Assessment/Plan (Daily) My last conversation with patient's daughter was that she had changed her mind on patient's CODE STATUS and would reconsider DO NOT RESUSCITATE. She has not called me back after I placed a phone call to her on February 12. I will contact her once again patient is a candidate for outpatient hospice services when discharged. Consultation Date/Type/Reason Admit Date/Time Jan 17, 2019 at 15:58 Initial Consult Date 01/18/19 Requesting Provider: IVAN AKHTAR MD Date/Time of Note DATE: 02/14/19 TIME: 05:28 Exam/Review of Systems Exam Vitals Vital Signs Date Temp Pulse Resp B/P (MAP) Pulse Ox O2 O2 Flow FiO2 Time Delivery Rate 02/14/19 100 10.0 60 04:05 02/14/19 82 02:31 02/14/19 Nasal 01:04 Cannula 02/14/19 23 77/37 (50) 01:00 02/13/19 98.5 23:42 Intake and Output 02/13/19 02/13/19 02/14/19 1515:00 23:00 07:00 IntakeIntake Total 220 ml OutputOutput Total 400 ml BalanceBalance -180 ml Results Result Diagram: 02/14/19 0028 02/14/19 0028 Results 24hrs Laboratory Tests Test 02/13/19 06:27 02/13/19 08:24 02/13/19 12:13 02/13/19 17:27 White Blood Count 10.0 Red Blood Count 2.61 L Hemoglobin 7.4 L Hematocrit 25.2 L Mean Corpuscular 96.6 Volume Mean Corpuscular 28.4 L Hemoglobin Mean Corpuscular 29.4 L Hemoglobin Concen t Red Cell 21.4 H Distribution Width Platelet Count 110 L Mean Platelet 12.8 H Volume Immature 0.400 Granulocytes % Neutrophils % 77.7 H Lymphocytes % 17.6 Monocytes % 3.4 Eosinophils % 0.7 Basophils % 0.2 Nucleated Red 0.6 H Blood Cells % Immature 0.040 H Granulocytes # Neutrophils # 7.8 H Lymphocytes # 1.8 Monocytes # 0.3 Eosinophils # 0.1 Basophils # 0.0 Nucleated Red 0.1 H Blood Cells # Sodium Level 150 H Potassium Level 4.4 Chloride Level 117 H Carbon Dioxide 30 Level Anion Gap 3 L Blood Urea 84 H Nitrogen Creatinine 1.88 H Est Glomerular Filtrat Rate mL/min Glucose Level 142 # Calcium Level 8.0 L Phosphorus Level 5.2 H Magnesium Level 2.2 Bedside Glucose 193 223 H 168 Test 02/13/19 21:26 02/13/19 23:59 02/14/19 00:28 02/14/19 01:00 Bedside Glucose 181 150 White Blood Count 8.4 Red Blood Count 2.55 L Hemoglobin 7.4 L Hematocrit 24.7 L Mean Corpuscular 96.9 Volume Mean Corpuscular 29.0 Hemoglobin Mean Corpuscular 30.0 L Hemoglobin Concen t Red Cell 21.5 H Distribution Width Platelet Count 106 L Mean Platelet 12.9 H Volume Immature 0.500 H Granulocytes % Neutrophils % 75.4 Lymphocytes % 19.7 Monocytes % 3.2 Eosinophils % 1.0 Basophils % 0.2 Nucleated Red 1.1 H Blood Cells % Immature 0.040 H Granulocytes # Neutrophils # 6.3 Lymphocytes # 1.7 Monocytes # 0.3 Eosinophils # 0.1 Basophils # 0.0 Nucleated Red 0.1 H Blood Cells # Sodium Level 150 H Potassium Level 4.0 Chloride Level 116 H Carbon Dioxide 30 Level Anion Gap 4 L Blood Urea 89 H Nitrogen Creatinine 1.91 H Est Glomerular Filtrat Rate mL/min Glucose Level 126 Lactic Acid Level 2.3 *H Calcium Level 8.0 L Blood Gas Blood arterial Specimen Source Arterial Blood 02/14/2019 12:50: Date Drawn 00 AM Arterial Blood pH 7.480 H (Temp corrected) Arterial Blood 35.8 pCO2 (Temp correct) Arterial Blood 58.7 L pO2 (Temp corrected) Arterial Blood 26.1 H HCO3 Arterial Blood 2.5 Base Excess Arterial Blood 91.4 L Oxygen Saturation Manuel Test ACCEPTAB Arterial Blood Right Radial Gas Puncture Site Arterial 0.6 Blood Carboxyhemo globin Arterial Blood 0.4 Methemoglobin Blood Gas A-a O2 113.1 H Differential Oxyhemoglobin 90.5 L Percent Blood Gas 37.0 Temperature Blood Gas 20.0 Respiration Rate Blood Gas Actual 33 Respiration Rate Blood Gas MASK - BIPAP Modality FiO2 30.0 Blood Gas 10 Pressure Support Blood Gas 18/8 IPAP/EPAP Ratio Blood Gas TN Notified Whom Blood Gas 02/14/2019 1:03:4 Notified Time 2 AM Medications Medication Current Medications Lactulose (Enulose) 20 gm DAILY PRN PO CONSTIPATION; Start 01/17/19 at 18:17 Acetaminophen (Tylenol Tab) 650 mg Q4H PRN PO PAIN Last administered on 02/11/19at 21:29; Admin Dose 650 MG; Start 01/17/19 at 18:17 Miscellaneous Information (Pending [facility] Order For Wound Care) This patient ramirez... PRN PRN XX WOUND CARE; Start 01/17/19 at 18:17 Albuterol/ Ipratropium (Duoneb) 3 ml Q2H RESP THERAPY PRN HHN SHORTNESS OF BREATH Last administered on 02/13/19at 05:52; Admin Dose 3 ML; Start 01/17/19 at 18:17 Bisacodyl (Dulcolax) 10 mg BID PRN PO CONSTIPATION; Start 01/17/19 at 18:17; Status Hold Folic Acid (Folic Acid) 1 mg DAILY PO Last administered on 02/13/19 08:44; Admin Dose 1 MG; Start 01/17/19 at 18:17 Latanoprost (Xalatan) 1 drop HS BOTH EYES Last administered on 02/13/19at 21:29; Admin Dose 1 DROP; Start 01/17/19 at 18:17 Nitroglycerin (Nitroglycerin (Sl Tab) 0.4 Mg) 0.4 tab Q5M PRN SL CHEST PAIN; Start 01/17/19 at 18:17 Nystatin (Nystatin Powder) 1 applic BID TOP Last administered on 02/13/19 21:31; Admin Dose 1 APPLIC; Start 01/17/19 at 18:17 IV Flush (NS 3 ml) 3 ml PER PROTOCOL IV ; Start 01/17/19 at 18:17 Miscellaneous Information 1 ea NOTE XX ; Start 01/17/19 at 18:17 Glucose (Glutose) 15 gm Q15M PRN PO DECREASED GLUCOSE; Start 01/17/19 at 18:17 Glucose (Glutose) 22.5 gm Q15M PRN PO DECREASED GLUCOSE; Start 01/17/19 at 18:17 Dextrose (D50w Syringe) 25 ml Q15M PRN IV DECREASED GLUCOSE Last administered on 02/11/19at 18:27; Admin Dose 25 ML; Start 01/17/19 at 18:17 Dextrose (D50w Syringe) 50 ml Q15M PRN IV DECREASED GLUCOSE; Start 01/17/19 at 18:17 Glucagon (Glucagen) 1 mg Q15M PRN IM DECREASED GLUCOSE Last administered on 02/11/19at 17:55; Admin Dose 1 MG; Start 01/17/19 at 18:17 Glucose (Glutose) 15 gm Q15M PRN BUCCAL DECREASED GLUCOSE; Start 01/17/19 at 18:17 Ascorbic Acid (Vitamin C) 250 mg DAILY PO Last administered on 02/13/19at 08:44; Admin Dose 250 MG; Start 01/17/19 at 18:17 Bisacodyl (Dulcolax Supp) 10 mg DAILY PRN [place] CONSTIPATION; Start 01/17/19 at 18:17 Zinc Acetate/ Diphenhydramine (Benadryl 2% Cr) 1 applic Q6H PRN TOP ITCHING Last administered on 01/26/19at 07:54; Admin Dose 1 APPLIC; Start 01/19/19 at 16:37 IV Flush (NS 10 ml) 10 ml PRN PRN IV IV PROTOCOL; Start 01/20/19 at 14:30 Cyanocobalamin (Vitamin B12 Inj) 1,000 mcg Q7D IM Last administered on 02/10/19a t 09:50; Admin Dose 1,000 MCG; Start 02/03/19 at 09:00 Metoprolol Tartrate (Lopressor) 5 mg Q4H PRN IV HR>110 Hold SBP<100; Start 01/26/19 at 14:30 Vancomycin HCl (Vanco Iv Per Pharmacy) VANCOMYCIN PER PHARMACY PER PROTOCOL XX ; Start 01/27/19 at 12:00 Enoxaparin Sodium (Lovenox) 60 mg DAILY SC Last administered on 02/03/19at 08:06; Admin Dose 60 MG; Start 01/28/19 at 09:00; Status Hold Atorvastatin Calcium (Lipitor) 40 mg QHS NGT Last administered on 02/13/19at 21:27; Admin Dose 40 MG; Start 01/28/19 at 21:00 Docusate Sodium (Colace Liquid Cup) 100 mg BID NGT ; Start 01/27/19 at 22:00; Status Hold Terazosin HCl (Hytrin) 10 mg HS NGT Last administered on 02/13/19at 21:27; Admin Dose 10 MG; Start 01/28/19 at 21:00 Levothyroxine Sodium (Synthroid) 125 mcg BEFORE BREAKFAST NGT Last administere d on 02/13/19 05:25; Admin Dose 125 MCG; Start 01/28/19 at 07:00 Ferrous Sulfate (Feosol Liquid Cup) 300 mg WITH MEALS GTB Last administered on 02/13/19 17:24; Admin Dose 300 MG; Start 01/28/19 at 11:30 Multivitamins (Multivitamin) 30 ml DAILY GTB Last administered on 02/13/19 08:46; Admin Dose 30 ML; Start 01/28/19 at 11:00 Diagnostic Test (Pha) (Accu-Chek) 1 ea Q4 XX Last administered on 02/13/19 21:32; Admin Dose 1 EA; Start 01/28/19 at 13:00 Nystatin/ Triamcinolone Acetonide (Mycolog Oint) 1 applic BID TOP Last administered on 02/13/19 21:38; Admin Dose 1 APPLIC; Start 01/28/19 at 22:30 Insulin Aspart (Novolog Insulin Pen) NOVOLOG *MILD* ALGORI... Q4 SC Last administered on 02/13/19 21:34; Admin Dose 1 UNIT; Start 01/29/19 at 05:00 Albuterol/ Ipratropium (Duoneb) 3 ml Q6HWA RESP THERAPY HHN Last administered on 02/13/19 19:46; Admin Dose 3 ML; Start 01/29/19 at 14:00 Epoetin Dae-epbx (RETACRIT(non-esrd)) 40,000 unit Mo@1700 SC Last administered on 02/10/19 18:06; Admin Dose 40,000 UNIT; Start 02/03/19 at 17:00 Insulin Glargine (Lantus) 10 units DAILY@2000 SC Last administered on 02/13/19 21:35; Admin Dose 10 UNITS; Start 01/31/19 at 20:00 Aztreonam 1 gm/ Dextrose 50 ml @ 100 mls/hr Q12 IVPB Last administered on 02/13/19 21:38; Admin Dose 100 MLS/HR; Start 02/03/19 at 21:00 Metoprolol Tartrate (Lopressor) 12.5 mg BID PO Last administered on 02/13/19 21:28; Admin Dose 12.5 MG; Start 02/05/19 at 21:00 Eye Lubricant (Refresh Plus) 1 drop QID BOTH EYES Last administered on 02/13/19 21:28; Admin Dose 1 DROP; Start 02/06/19 at 09:00 Eye Lubricant (Akwa Oint) 1 applic HS LEFT EYE Last administered on 02/13/19 21:29; Admin Dose 1 APPLIC; Start 02/06/19 at 21:00 Multi-Ingredient Ointment (Aquaphor Oint 52.5 Gm) 1 applic BID TOP Last administered on 02/13/19 21:31; Admin Dose 1 APPLIC; Start 02/06/19 at 22:40 Lansoprazole (Prevacid) 30 mg BID@0600,1800 NGT Last administered on 02/13/19 17:24; Admin Dose 30 MG; Start 02/07/19 at 18:00 Tobramycin Sulfate/Sodium Chloride (Nilesh Inhal) 300 mg BID RESP THERAPY NEB Last administered on 02/13/19 19:46; Admin Dose 300 MG; Start 02/08/19 at 09:00 Morphine Sulfate (morphine) 0.5 mg Q4H PRN IV SEVERE PAIN LEVEL 7-10 Last administered on 02/10/19 18:18; Admin Dose 0.5 MG; Start 02/08/19 at 19:00 Vancomycin HCl 750 mg/Dextrose 250 ml @ 125 mls/hr Q72H IVPB Last administered on 02/12/19 22:24; Admin Dose 125 MLS/HR; Start 02/09/19 at 23:00 Furosemide (Lasix) 20 mg BID IV Last administered on 02/13/19 21:30; Admin Dose 20 MG; Start 02/13/19 at 00:30 Norepinephrine 250 ml @ 1.875 mls/ hr TITRATE IV ; Start 02/14/19 at 03:00 MARGARITO WILSON February 14, 2019 05:29
[2019-02-14] MEDS: LANSOPRAZOLE 30 MG CAP NGT SCH ×2 (06:56→18:00)
[2019-02-14] MEDS: LEVOTHYROXINE 125 MCG TAB NGT SCH (06:56)
[2019-02-14] MEDS: FERROUS SULFATE 60 MG/ML 5ML CUP GTB SCH ×4 (08:15→17:35)
[2019-02-14] MEDS: FOLIC ACID 1 MG TAB PO SCH (08:22)
[2019-02-14] MEDS: ASCORBIC ACID 250 MG TAB PO SCH (08:22)
[2019-02-14] MEDS: MULTIVITAMINS 30 ML CUP GTB SCH (08:22)
[2019-02-14] MEDS: BALSAM PERU/CASTOR OIL 60 GM TUBE TOP SCH ×2 (08:23→21:05)
[2019-02-14] MEDS: AQUAPHOR 52.5 GM OINT TOP SCH ×2 (08:23→21:05)
[2019-02-14] MEDS: NYSTATIN/TRIAMCINOLONE 15 GM OINT TOP SCH ×2 (08:24→21:05)
[2019-02-14] MEDS: ALBUTEROL/IPRATROPIUM (NEB) 3 ML AMP HHN SCH ×3 (08:25→19:32)
[2019-02-14] MEDS: TOBRAMYCIN/0.25NS 300 MG/5 ML INHAL NEB SCH ×2 (08:48→19:32)
[2019-02-14] MEDS: METOPROLOL 25 MG TAB PO SCH ×2 (08:54→21:00)
[2019-02-14] MEDS: FUROSEMIDE 20 MG INJ IV SCH ×2 (09:00→21:10)
[2019-02-14] MEDS: NYSTATIN 30 GM POWDER BTL TOP SCH ×2 (09:35→21:06)
[2019-02-14] MEDS: CARBOXYMETHYLCELLULOSE 0.5% 0.4 ML OPH BOTH EYES SCH ×4 (09:35→20:56)
[2019-02-14] MEDS: AZTREONAM 1 GM in DEXTROSE 5% 50 ML IVPB SCH ×2 (10:52→21:02)
--- NOTE | 2019-02-14 11:02 | CONS ---
Consult Date/Type/Reason Admit Date/Time Jan 17, 2019 at 15:58 Initial Consult Date 01/18/19 Type of Consult Pulmonary Requesting Provider: IVAN AKHTAR MD Date/Time of Note DATE: 02/14/19 TIME: 11:01 Subjective Transferred back to ICU for hypotension. Decreased urine output worsening vascular congestion on chest x-ray. Objective Vital Signs Date Temp Pulse Resp B/P (MAP) Pulse Ox O2 O2 Flow FiO2 Time Delivery Rate 02/14/19 77 17 105/46 95 09:00 (65) 02/14/19 97.8 08:00 02/14/19 50 06:02 02/14/19 10.0 04:05 02/14/19 Nasal 01:04 Cannula Intake and Output 02/13/19 02/13/19 02/14/19 1515:00 23:00 07:00 IntakeIntake Total 880 ml OutputOutput Total 620 ml BalanceBalance 260 ml Exam GENERAL: Frail elderly gentleman comfortable at rest on high flow oxygen. VITAL SIGNS: per chart NECK: Supple. No JVD or lymphadenopathy. CARDIAC EXAM: S1, S2. No added sounds or murmurs. CHEST: Diminished air entry both bases ABDOMEN: Soft, nontender. No guarding or rebound. EXTREMITIES: No cyanosis, clubbing edema +2 NEUROLOGIC: Generalized weakness Vent Setting Ventilator Support Mode: AC Fraction of Inspired Oxygen pe: 60 Positive End Expiratory Pressu: 5.0 Results/Medications Result Diagram: 02/14/19 0028 02/14/19 0028 Results 24 hrs Laboratory Tests Test 02/13/19 12:13 02/13/19 17:27 02/13/19 21:26 02/13/19 23:59 Bedside Glucose 223 H 168 181 150 Test 02/14/19 00:28 02/14/19 01:00 02/14/19 05:34 02/14/19 08:35 White Blood Count 8.4 Red Blood Count 2.55 L Hemoglobin 7.4 L Hematocrit 24.7 L Mean Corpuscular 96.9 Volume Mean Corpuscular 29.0 Hemoglobin Mean Corpuscular 30.0 L Hemoglobin Concen t Red Cell 21.5 H Distribution Width Platelet Count 106 L Mean Platelet 12.9 H Volume Immature 0.500 H Granulocytes % Neutrophils % 75.4 Lymphocytes % 19.7 Monocytes % 3.2 Eosinophils % 1.0 Basophils % 0.2 Nucleated Red 1.1 H Blood Cells % Immature 0.040 H Granulocytes # Neutrophils # 6.3 Lymphocytes # 1.7 Monocytes # 0.3 Eosinophils # 0.1 Basophils # 0.0 Nucleated Red 0.1 H Blood Cells # Sodium Level 150 H Potassium Level 4.0 Chloride Level 116 H Carbon Dioxide 30 Level Anion Gap 4 L Blood Urea 89 H Nitrogen Creatinine 1.91 H Est Glomerular Filtrat Rate mL/min Glucose Level 126 Lactic Acid Level 2.3 *H Calcium Level 8.0 L Blood Gas Blood arterial Specimen Source Arterial Blood 02/14/2019 12:50: Date Drawn 00 AM Arterial Blood pH 7.480 H (Temp corrected) Arterial Blood 35.8 pCO2 (Temp correct) Arterial Blood 58.7 L pO2 (Temp corrected) Arterial Blood 26.1 H HCO3 Arterial Blood 2.5 Base Excess Arterial Blood 91.4 L Oxygen Saturation Manuel Test ACCEPTAB Arterial Blood Right Radial Gas Puncture Site Arterial 0.6 Blood Carboxyhemo globin Arterial Blood 0.4 Methemoglobin Blood Gas A-a O2 113.1 H Differential Oxyhemoglobin 90.5 L Percent Blood Gas 37.0 Temperature Blood Gas 20.0 Respiration Rate Blood Gas Actual 33 Respiration Rate Blood Gas MASK - BIPAP Modality FiO2 30.0 Blood Gas 10 Pressure Support Blood Gas 18/8 IPAP/EPAP Ratio Blood Gas MS Notified Whom Blood Gas 02/14/2019 1:03:4 Notified Time 2 AM Bedside Glucose 81 90 Medications Current Medications Lactulose (Enulose) 20 gm DAILY PRN PO CONSTIPATION; Start 01/17/19 at 18:17 Acetaminophen (Tylenol Tab) 650 mg Q4H PRN PO PAIN Last administered on 02/11/19at 21:29; Admin Dose 650 MG; Start 01/17/19 at 18:17 Miscellaneous Information (Pending [facility] Order For Wound Care) This patient ramirez... PRN PRN XX WOUND CARE; Start 01/17/19 at 18:17 Albuterol/ Ipratropium (Duoneb) 3 ml Q2H RESP THERAPY PRN HHN SHORTNESS OF BREATH Last administered on 02/13/19at 05:52; Admin Dose 3 ML; Start 01/17/19 at 18:17 Bisacodyl (Dulcolax) 10 mg BID PRN PO CONSTIPATION; Start 01/17/19 at 18:17; Status Hold Folic Acid (Folic Acid) 1 mg DAILY PO Last administered on 02/14/19at 08:22; Admin Dose 1 MG; Start 01/17/19 at 18:17 Latanoprost (Xalatan) 1 drop HS BOTH EYES Last administered on 02/13/19at 21:29; Admin Dose 1 DROP; Start 01/17/19 at 18:17 Nitroglycerin (Nitroglycerin (Sl Tab) 0.4 Mg) 0.4 tab Q5M PRN SL CHEST PAIN; Start 01/17/19 at 18:17 Nystatin (Nystatin Powder) 1 applic BID TOP Last administered on 02/14/19at 09:35; Admin Dose 1 APPLIC; Start 01/17/19 at 18:17 IV Flush (NS 3 ml) 3 ml PER PROTOCOL IV ; Start 01/17/19 at 18:17 Miscellaneous Information 1 ea NOTE XX ; Start 01/17/19 at 18:17 Glucose (Glutose) 15 gm Q15M PRN PO DECREASED GLUCOSE; Start 01/17/19 at 18:17 Glucose (Glutose) 22.5 gm Q15M PRN PO DECREASED GLUCOSE; Start 01/17/19 at 18:17 Dextrose (D50w Syringe) 25 ml Q15M PRN IV DECREASED GLUCOSE Last administered on 02/11/19at 18:27; Admin Dose 25 ML; Start 01/17/19 at 18:17 Dextrose (D50w Syringe) 50 ml Q15M PRN IV DECREASED GLUCOSE; Start 01/17/19 at 18:17 Glucagon (Glucagen) 1 mg Q15M PRN IM DECREASED GLUCOSE Last administered on 02/11/19at 17:55; Admin Dose 1 MG; Start 01/17/19 at 18:17 Glucose (Glutose) 15 gm Q15M PRN BUCCAL DECREASED GLUCOSE; Start 01/17/19 at 18:17 Ascorbic Acid (Vitamin C) 250 mg DAILY PO Last administered on 02/14/19at 08:22; Admin Dose 250 MG; Start 01/17/19 at 18:17 Bisacodyl (Dulcolax Supp) 10 mg DAILY PRN [place] CONSTIPATION; Start 01/17/19 at 18:17 Zinc Acetate/ Diphenhydramine (Benadryl 2% Cr) 1 applic Q6H PRN TOP ITCHING Last administered on 01/26/19 07:54; Admin Dose 1 APPLIC; Start 01/19/19 at 16:37 IV Flush (NS 10 ml) 10 ml PRN PRN IV IV PROTOCOL; Start 01/20/19 at 14:30 Cyanocobalamin (Vitamin B12 Inj) 1,000 mcg Q7D IM Last administered on 02/10 09:50; Admin Dose 1,000 MCG; Start 02/03/19 at 09:00 Metoprolol Tartrate (Lopressor) 5 mg Q4H PRN IV HR>110 Hold SBP<100; Start 01/26/19 at 14:30 Vancomycin HCl (Vanco Iv Per Pharmacy) VANCOMYCIN PER PHARMACY PER PROTOCOL XX ; Start 01/27/19 at 12:00 Enoxaparin Sodium (Lovenox) 60 mg DAILY SC Last administered on 02/03/19 08:06; Admin Dose 60 MG; Start 01/28/19 at 09:00; Status Hold Atorvastatin Calcium (Lipitor) 40 mg QHS NGT Last administered on 02/13/19 21:27; Admin Dose 40 MG; Start 01/28/19 at 21:00 Docusate Sodium (Colace Liquid Cup) 100 mg BID NGT ; Start 01/27/19 at 22:00; Status Hold Terazosin HCl (Hytrin) 10 mg HS NGT Last administered on 02/13/19 21:27; Admin Dose 10 MG; Start 01/28/19 at 21:00 Levothyroxine Sodium (Synthroid) 125 mcg BEFORE BREAKFAST NGT Last adminis tered on 02/14/19 06:56; Admin Dose 125 MCG; Start 01/28/19 at 07:00 Ferrous Sulfate (Feosol Liquid Cup) 300 mg WITH MEALS GTB Last administered on 02/14/19 08:15; Admin Dose 300 MG; Start 01/28/19 at 11:30 Multivitamins (Multivitamin) 30 ml DAILY GTB Last administered on 02/14/19 08:22; Admin Dose 30 ML; Start 01/28/19 at 11:00 Diagnostic Test (Pha) (Accu-Chek) 1 ea Q4 XX Last administered on 02/14/19 08:36; Admin Dose 1 EA; Start 01/28/19 at 13:00 Nystatin/ Triamcinolone Acetonide (Mycolog Oint) 1 applic BID TOP Last administered on 02/14/19 08:24; Admin Dose 1 APPLIC; Start 01/28/19 at 22:30 Insulin Aspart (Novolog Insulin Pen) NOVOLOG *MILD* ALGORI... Q4 SC Last administered on 02/13/19 21:34; Admin Dose 1 UNIT; Start 01/29/19 at 05:00 Albuterol/ Ipratropium (Duoneb) 3 ml Q6HWA RESP THERAPY HHN Last administered on 02/14/19 08:25; Admin Dose 3 ML; Start 01/29/19 at 14:00 Epoetin Dae-epbx (RETACRIT(non-esrd)) 40,000 unit Mo@1700 SC Last administered on 02/10/19 18:06; Admin Dose 40,000 UNIT; Start 02/03/19 at 17:00 Insulin Glargine (Lantus) 10 units DAILY@2000 SC Last administered on 02/13/19 21:35; Admin Dose 10 UNITS; Start 01/31/19 at 20:00 Aztreonam 1 gm/ Dextrose 50 ml @ 100 mls/hr Q12 IVPB Last administered on 02/14/19 10:52; Admin Dose 100 MLS/HR; Start 02/03/19 at 21:00 Metoprolol Tartrate (Lopressor) 12.5 mg BID PO Last administered on 02/13/19 21:28; Admin Dose 12.5 MG; Start 02/05/19 at 21:00 Eye Lubricant (Refresh Plus) 1 drop QID BOTH EYES Last administered on 02/14/19 09:35; Admin Dose 1 DROP; Start 02/06/19 at 09:00 Eye Lubricant (Akwa Oint) 1 applic HS LEFT EYE Last administered on 02/13/19 21:29; Admin Dose 1 APPLIC; Start 02/06/19 at 21:00 Multi-Ingredient Ointment (Aquaphor Oint 52.5 Gm) 1 applic BID TOP Last administered on 02/14/19 08:23; Admin Dose 1 APPLIC; Start 02/06/19 at 22:40 Lansoprazole (Prevacid) 30 mg BID@0600,1800 NGT Last administered on 02/14/19 06:56; Admin Dose 30 MG; Start 02/07/19 at 18:00 Tobramycin Sulfate/Sodium Chloride (Nilesh Inhal) 300 mg BID RESP THERAPY NEB Last administered on 02/14/19at 08:48; Admin Dose 300 MG; Start 02/08/19 at 09:00 Morphine Sulfate (morphine) 0.5 mg Q4H PRN IV SEVERE PAIN LEVEL 7-10 Last administered on 02/10/19at 18:18; Admin Dose 0.5 MG; Start 02/08/19 at 19:00 Vancomycin HCl 750 mg/Dextrose 250 ml @ 125 mls/hr Q72H IVPB Last administered on 02/12/19at 22:24; Admin Dose 125 MLS/HR; Start 02/09/19 at 23:00 Furosemide (Lasix) 20 mg BID IV Last administered on 02/13/19at 21:30; Admin Dose 20 MG; Start 02/13/19 at 00:30 Norepinephrine 250 ml @ 1.875 mls/ hr TITRATE IV ; Start 02/14/19 at 03:00 Assessment/Plan Hospital Course (Demo Recall) IMP: 1. s/p Acute hypoxemic respiratory failure likely secondary to combination of volume overload and pneumonia, now requiring bilevel ventilation again. 2. Encephalopathy underlying dementia versus toxic metabolic, appears to be slowly improving possibly secondary to elevated sodium. 3. Valvular heart disease 4. Severe dysphagia 5. Status post septic shock likely secondary to above, persistent leukocytosis. 6. Anemia, no active GI bleeding 7. Skin diffuse excoriating skin lesion unclear etiology not consistent with history of "red man" syndrome. or pemphigus. Likely drug reaction. 8. Anemia RECS: 1. Monitor respiratory status closely. 2. Continue broad-spectrum antibiotics 3. Infectious work-up as per ID 4. Monitor H&H 5. Palliative care consult appreciated 6. Electrolytes per nephrology. May require hemodialysis. 7. High flow O2 as tolerated Overall prognosis remains guarded Palliative care recommendations currently patient remains full code. Critical care time 40 minutes. We will discuss with family goals of care. DIANA MCRAE MD, [facility] February 14, 2019 11:02
--- NOTE | 2019-02-14 11:47 | PN ---
CARSON CAROA 02/14/19 1147: Date/Time of Note Date/Time of Note DATE: 02/14/19 TIME: 11:47 Assessment/Plan VTE Prophylaxis [place] [facility] risk: 9 [place]CD applied [place] [facility] [place] No SCD contraindicated: bilateral LE trauma Pharmacological prophylaxis: NA/contraindicated Pharm contraindication: anticoag not tolerated Lines/Catheters [facility] Type [facility] Central Line Central line still needed: Yes Urinary Cath still in place: Yes Reason Cath still needed: urinary retention Assessment/Plan Hospital Course 1. Sepsis, Lactic acid is elevated. Pt is hypotensive, low core temperature. Urine is cloudy. 2. Severe anemia 3. Chronic renal failure likely secondary to sepsis 4. Hypertension. 5. Hyperlipidemia. 6. Hypothyroidism. 7. Normocytic normochromic chronic anemia with recent hemoglobin drop. 8. Bilateral groin cellulitis more likely associated with mateus, patches in groin and axilla bilaterally. skin peeling 9. History of rheumatoid arthritis with joint deformities. 10. Diabetes type 2. 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 Peripheral vascular disease. 13. Chronic a.fib 14. right arm edema, better 15. Neoplasm per CT abdomen. 4.3 cm cystic lesion along the pancreas body, enlarged since 10/10/2012 (previously 2.4 cm). 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 16. Possible allergic skin reaction, biopsy is obtained 17. altered mental status delirium vs stroke, resolved 18. Hypernatremia 156 from 152 19. Eye muscle paralysis. Assessment/Plan -c/w ICU care -spoke to daughter autumn about pt worsening of condition -poor prognosis -pending respiratory failure -dr De Leon on case, pt is on [place] 40% -Dr Robertson, cardiology -Afib controlled -skin care -c/w rinaldi -sample UA -hold BP meds -Levophed on standing -ABG reviewed , mixed alkalosis, hypoxia -creatinine rising Result Diagram: 02/14/19 0028 02/14/19 0028 Results 24hrs Laboratory Tests Test 02/13/19 12:13 02/13/19 17:27 02/13/19 21:26 02/13/19 23:59 Bedside Glucose 223 H 168 181 150 Test 02/14/19 00:28 02/14/19 01:00 02/14/19 05:34 02/14/19 08:35 White Blood Count 8.4 Red Blood Count 2.55 L Hemoglobin 7.4 L Hematocrit 24.7 L Mean Corpuscular 96.9 Volume Mean Corpuscular 29.0 Hemoglobin Mean Corpuscular 30.0 L Hemoglobin Concen t Red Cell 21.5 H Distribution Width Platelet Count 106 L Mean Platelet 12.9 H Volume Immature 0.500 H Granulocytes % Neutrophils % 75.4 Lymphocytes % 19.7 Monocytes % 3.2 Eosinophils % 1.0 Basophils % 0.2 Nucleated Red 1.1 H Blood Cells % Immature 0.040 H Granulocytes # Neutrophils # 6.3 Lymphocytes # 1.7 Monocytes # 0.3 Eosinophils # 0.1 Basophils # 0.0 Nucleated Red 0.1 H Blood Cells # Sodium Level 150 H Potassium Level 4.0 Chloride Level 116 H Carbon Dioxide 30 Level Anion Gap 4 L Blood Urea 89 H Nitrogen Creatinine 1.91 H Est Glomerular Filtrat Rate mL/min Glucose Level 126 Lactic Acid Level 2.3 *H Calcium Level 8.0 L Blood Gas Blood arterial Specimen Source Arterial Blood 02/14/2019 12:50: Date Drawn 00 AM Arterial Blood pH 7.480 H (Temp corrected) Arterial Blood 35.8 pCO2 (Temp correct) Arterial Blood 58.7 L pO2 (Temp corrected) Arterial Blood 26.1 H HCO3 Arterial Blood 2.5 Base Excess Arterial Blood 91.4 L Oxygen Saturation Manuel Test ACCEPTAB Arterial Blood Right Radial Gas Puncture Site Arterial 0.6 Blood Carboxyhemo globin Arterial Blood 0.4 Methemoglobin Blood Gas A-a O2 113.1 H Differential Oxyhemoglobin 90.5 L Percent Blood Gas 37.0 Temperature Blood Gas 20.0 Respiration Rate Blood Gas Actual 33 Respiration Rate Blood Gas MASK - BIPAP Modality FiO2 30.0 Blood Gas 10 Pressure Support Blood Gas 18/8 IPAP/EPAP Ratio Blood Gas HI Notified Whom Blood Gas 02/14/2019 1:03:4 Notified Time 2 AM Bedside Glucose 81 90 Subjective 24 Hr Interval Summary Constitutional: disoriented Exam/Review of Systems Exam Vitals Vital Signs Date Temp Pulse Resp B/P (MAP) Pulse Ox O2 O2 Flow FiO2 Time Delivery Rate 02/14/19 77 17 105/46 95 09:00 (65) 02/14/19 97.8 08:00 02/14/19 50 06:02 02/14/19 10.0 04:05 02/14/19 Nasal 01:04 Cannula Intake and Output 02/13/19 02/13/19 02/14/19 1515:00 23:00 07:00 IntakeIntake Total 880 ml OutputOutput Total 620 ml BalanceBalance 260 ml ENMT: nl external ears & nose Respiratory: diminished breath sounds Cardiovascular: regular rate and rhythm Gastrointestinal: soft Genitourinary - Male: other (rinaldi with cloudy urine) Skin: other (peeling) Results Result Diagram: 02/14/19 0028 02/14/19 0028 Results 24hrs Laboratory Tests Test 02/13/19 12:13 02/13/19 17:27 02/13/19 21:26 02/13/19 23:59 Bedside Glucose 223 H 168 181 150 Test 02/14/19 00:28 02/14/19 01:00 02/14/19 05:34 02/14/19 08:35 White Blood Count 8.4 Red Blood Count 2.55 L Hemoglobin 7.4 L Hematocrit 24.7 L Mean Corpuscular 96.9 Volume Mean Corpuscular 29.0 Hemoglobin Mean Corpuscular 30.0 L Hemoglobin Concen t Red Cell 21.5 H Distribution Width Platelet Count 106 L Mean Platelet 12.9 H Volume Immature 0.500 H Granulocytes % Neutrophils % 75.4 Lymphocytes % 19.7 Monocytes % 3.2 Eosinophils % 1.0 Basophils % 0.2 Nucleated Red 1.1 H Blood Cells % Immature 0.040 H Granulocytes # Neutrophils # 6.3 Lymphocytes # 1.7 Monocytes # 0.3 Eosinophils # 0.1 Basophils # 0.0 Nucleated Red 0.1 H Blood Cells # Sodium Level 150 H Potassium Level 4.0 Chloride Level 116 H Carbon Dioxide 30 Level Anion Gap 4 L Blood Urea 89 H Nitrogen Creatinine 1.91 H Est Glomerular Filtrat Rate mL/min Glucose Level 126 Lactic Acid Level 2.3 *H Calcium Level 8.0 L Blood Gas Blood arterial Specimen Source Arterial Blood 02/14/2019 12:50: Date Drawn 00 AM Arterial Blood pH 7.480 H (Temp corrected) Arterial Blood 35.8 pCO2 (Temp correct) Arterial Blood 58.7 L pO2 (Temp corrected) Arterial Blood 26.1 H HCO3 Arterial Blood 2.5 Base Excess Arterial Blood 91.4 L Oxygen Saturation Manuel Test ACCEPTAB Arterial Blood Right Radial Gas Puncture Site Arterial 0.6 Blood Carboxyhemo globin Arterial Blood 0.4 Methemoglobin Blood Gas A-a O2 113.1 H Differential Oxyhemoglobin 90.5 L Percent Blood Gas 37.0 Temperature Blood Gas 20.0 Respiration Rate Blood Gas Actual 33 Respiration Rate Blood Gas MASK - BIPAP Modality FiO2 30.0 Blood Gas 10 Pressure Support Blood Gas 18/8 IPAP/EPAP Ratio Blood Gas HI Notified Whom Blood Gas 02/14/2019 1:03:4 Notified Time 2 AM Bedside Glucose 81 90 Medications Medication Current Medications Lactulose (Enulose) 20 gm DAILY PRN PO CONSTIPATION; Start 01/17/19 at 18:17 Acetaminophen (Tylenol Tab) 650 mg Q4H PRN PO PAIN Last administered on 02/11/19 21:29; Admin Dose 650 MG; Start 01/17/19 at 18:17 Miscellaneous Information (Pending [facility] Order For Wound Care) This patient ramirez... PRN PRN XX WOUND CARE; Start 01/17/19 at 18:17 Albuterol/ Ipratropium (Duoneb) 3 ml Q2H RESP THERAPY PRN HHN SHORTNESS OF BREATH Last administered on 02/13/19 05:52; Admin Dose 3 ML; Start 01/17/19 at 18:17 Bisacodyl (Dulcolax) 10 mg BID PRN PO CONSTIPATION; Start 01/17/19 at 18:17; Status Hold Folic Acid (Folic Acid) 1 mg DAILY PO Last administered on 02/14/19 08:22; Admin Dose 1 MG; Start 01/17/19 at 18:17 Latanoprost (Xalatan) 1 drop HS BOTH EYES Last administered on 02/13/19 21:29; Admin Dose 1 DROP; Start 01/17/19 at 18:17 Nitroglycerin (Nitroglycerin (Sl Tab) 0.4 Mg) 0.4 tab Q5M PRN SL CHEST PAIN; Start 01/17/19 at 18:17 Nystatin (Nystatin Powder) 1 applic BID TOP Last administered on 02/14/19 09:35; Admin Dose 1 APPLIC; Start 01/17/19 at 18:17 IV Flush (NS 3 ml) 3 ml PER PROTOCOL IV ; Start 01/17/19 at 18:17 Miscellaneous Information 1 ea NOTE XX ; Start 01/17/19 at 18:17 Glucose (Glutose) 15 gm Q15M PRN PO DECREASED GLUCOSE; Start 01/17/19 at 18:17 Glucose (Glutose) 22.5 gm Q15M PRN PO DECREASED GLUCOSE; Start 01/17/19 at 18:17 Dextrose (D50w Syringe) 25 ml Q15M PRN IV DECREASED GLUCOSE Last administered on 02/11/19at 18:27; Admin Dose 25 ML; Start 01/17/19 at 18:17 Dextrose (D50w Syringe) 50 ml Q15M PRN IV DECREASED GLUCOSE; Start 01/17/19 at 18:17 Glucagon (Glucagen) 1 mg Q15M PRN IM DECREASED GLUCOSE Last administered on 02/11/19at 17:55; Admin Dose 1 MG; Start 01/17/19 at 18:17 Glucose (Glutose) 15 gm Q15M PRN BUCCAL DECREASED GLUCOSE; Start 01/17/19 at 18:17 Ascorbic Acid (Vitamin C) 250 mg DAILY PO Last administered on 02/14/19at 08:22; Admin Dose 250 MG; Start 01/17/19 at 18:17 Bisacodyl (Dulcolax Supp) 10 mg DAILY PRN [place] CONSTIPATION; Start 01/17/19 at 18:17 Zinc Acetate/ Diphenhydramine (Benadryl 2% Cr) 1 applic Q6H PRN TOP ITCHING Last administered on 01/26/19at 07:54; Admin Dose 1 APPLIC; Start 01/19/19 at 16:37 IV Flush (NS 10 ml) 10 ml PRN PRN IV IV PROTOCOL; Start 01/20/19 at 14:30 Cyanocobalamin (Vitamin B12 Inj) 1,000 mcg Q7D IM Last administered on 02/10/19at 09:50; Admin Dose 1,000 MCG; Start 02/03/19 at 09:00 Metoprolol Tartrate (Lopressor) 5 mg Q4H PRN IV HR>110 Hold SBP<100; Start 01/26/19 at 14:30 Vancomycin HCl (Vanco Iv Per Pharmacy) VANCOMYCIN PER PHARMACY PER PROTOCOL XX ; Start 01/27/19 at 12:00 Enoxaparin Sodium (Lovenox) 60 mg DAILY SC Last administered on 02/03/19at 08:06; Admin Dose 60 MG; Start 01/28/19 at 09:00; Status Hold Atorvastatin Calcium (Lipitor) 40 mg QHS NGT Last administered on 02/13/19 21:27; Admin Dose 40 MG; Start 01/28/19 at 21:00 Docusate Sodium (Colace Liquid Cup) 100 mg BID NGT ; Start 01/27/19 at 22:00; Status Hold Terazosin HCl (Hytrin) 10 mg HS NGT Last administered on 02/13/19 21:27; Admin Dose 10 MG; Start 01/28/19 at 21:00 Levothyroxine Sodium (Synthroid) 125 mcg BEFORE BREAKFAST NGT Last administered on 02/14/19 06:56; Admin Dose 125 MCG; Start 01/28/19 at 07:00 Ferrous Sulfate (Feosol Liquid Cup) 300 mg WITH MEALS GTB Last administered on 02/14/19 08:15; Admin Dose 300 MG; Start 01/28/19 at 11:30 Multivitamins (Multivitamin) 30 ml DAILY GTB Last administered on 02/14/19 08:22; Admin Dose 30 ML; Start 01/28/19 at 11:00 Diagnostic Test (Pha) (Accu-Chek) 1 ea Q4 XX Last administered on 02/14/19 08:36; Admin Dose 1 EA; Start 01/28/19 at 13:00 Nystatin/ Triamcinolone Acetonide (Mycolog Oint) 1 applic BID TOP Last administered on 02/14/19 08:24; Admin Dose 1 APPLIC; Start 01/28/19 at 22:30 Insulin Aspart (Novolog Insulin Pen) NOVOLOG *MILD* ALGORI... Q4 SC Last a dministered on 02/13/19 21:34; Admin Dose 1 UNIT; Start 01/29/19 at 05:00 Albuterol/ Ipratropium (Duoneb) 3 ml Q6HWA RESP THERAPY HHN Last administered on 02/14/19 08:25; Admin Dose 3 ML; Start 01/29/19 at 14:00 Epoetin Dae-epbx (RETACRIT(non-esrd)) 40,000 unit Mo@1700 SC Last administered on 02/10/19 18:06; Admin Dose 40,000 UNIT; Start 02/03/19 at 17:00 Insulin Glargine (Lantus) 10 units DAILY@2000 SC Last administered on 02/13/19 21:35; Admin Dose 10 UNITS; Start 01/31/19 at 20:00 Aztreonam 1 gm/ Dextrose 50 ml @ 100 mls/hr Q12 IVPB Last administered on 02/14/19 10:52; Admin Dose 100 MLS/HR; Start 02/03/19 at 21:00 Metoprolol Tartrate (Lopressor) 12.5 mg BID PO Last administered on 02/13/19 21:28; Admin Dose 12.5 MG; Start 02/05/19 at 21:00 Eye Lubricant (Refresh Plus) 1 drop QID BOTH EYES Last administered on 02/14/19 09:35; Admin Dose 1 DROP; Start 02/06/19 at 09:00 Eye Lubricant (Akwa Oint) 1 applic HS LEFT EYE Last administered on 02/13/19 21:29; Admin Dose 1 APPLIC; Start 02/06/19 at 21:00 Multi-Ingredient Ointment (Aquaphor Oint 52.5 Gm) 1 applic BID TOP Last administered on 02/14/19 08:23; Admin Dose 1 APPLIC; Start 02/06/19 at 22:40 Lansoprazole (Prevacid) 30 mg BID@0600,1800 NGT Last administered on 02/14/19 06:56; Admin Dose 30 MG; Start 02/07/19 at 18:00 Tobramycin Sulfate/Sodium Chloride (Nilesh Inhal) 300 mg BID RESP THERAPY NEB Last administered on 02/14/19 08:48; Admin Dose 300 MG; Start 02/08/19 at 09:00 Morphine Sulfate (morphine) 0.5 mg Q4H PRN IV SEVERE PAIN LEVEL 7-10 Last administered on 02/10/19 18:18; Admin Dose 0.5 MG; Start 02/08/19 at 19:00 Vancomycin HCl 750 mg/Dextrose 250 ml @ 125 mls/hr Q72H IVPB Last administered on 02/12/19 22:24; Admin Dose 125 MLS/HR; Start 02/09/19 at 23:00 Furosemide (Lasix) 20 mg BID IV Last administered on 02/13/19 21:30; Admin Dose 20 MG; Start 02/13/19 at 00:30 Norepinephrine 250 ml @ 1.875 mls/ hr TITRATE IV ; Start 02/14/19 at 03:00 IVAN AKHTAR MD 02/14/19 1603: Assessment/Plan Assessment/Plan Assessment/Plan seen and examined pt with volume overlaod/hypernatremia and uremia AMS, spoke to family poor prognosis iv lasix/pressor albumin abg xray Result Diagram: 02/14/19 0028 02/14/19 0028 COOPER CARO February 14, 2019 11:47 IVAN AKHTAR MD February 14, 2019 16:03
--- NOTE | 2019-02-14 12:26 | CONS ---
Assessment/Plan Assessment/Plan Hospital Course (Demo Recall) IMPRESSION: 1. Atrial fibrillation, currently rate controlled.-off systemic anticoagulation due to anemia. ON asa only due to anemia 2. Possible congestive heart failure by chest x-ray, which will be diastolic, acute on chronic by most recent echo with an EF of 60%. 3. Tricuspid regurgitation, moderate by most recent echo. 4. Acute on chronic renal failure-mild worsening 5. Possible pneumonia. 6. History of coronary artery disease, status post coronary artery bypass graft surgery. 7. Dyslipidemia. 8. Rheumatoid arthritis. 9. Groin cellulitis. 10. Anemia-worsening again today requiring transfusions PRBC's.Now post-op s/p endoscopy 11. Diabetes mellitus. 12. Sepsis/leukocytosis 14. abdominal mass 15. Rash-all over body with skin chaffing at this time, probable drug reaction- significantly improved 16. Encephalopathy-ongoing. MRI negative for acute CVA 17. coagulopathy-ongoing Recc: -Now transferred back to ICU due to unstable BP -serial ecg's -Contineu lasix as tolerated only -Continue statin -Continue broad spectrum abx's and f/u cx data -Ongoing GI eval of abd mass -ongoing derm eval of rash and continue topical treatment -BB as tolerated only Consultation Date/Type/Reason Admit Date/Time Jan 17, 2019 at 15:58 Initial Consult Date 01/18/19 Type of Consult Cardiology Reason for Consultation CHF Requesting Provider: IVAN AKHTAR MD Date/Time of Note DATE: 02/14/19 TIME: 12:23 Exam/Review of Systems Vital Signs Vitals Vital Signs Date Temp Pulse Resp B/P (MAP) Pulse Ox O2 O2 Flow FiO2 Time Delivery Rate 02/14/19 77 17 105/46 95 09:00 (65) 02/14/19 97.8 08:00 02/14/19 50 06:02 02/14/19 10.0 04:05 02/14/19 Nasal 01:04 Cannula Intake and Output 02/13/19 02/13/19 02/14/19 1414:59 22:59 06:59 IntakeIntake Total 840 ml OutputOutput Total 570 ml BalanceBalance 270 ml Exam Exam Review of Systems: CONSTITUTIONAL: No fevers, chills. PULMONARY: No sob CARDIOVASCULAR: No chest pain/palpitations GASTROINTESTINAL: No nausea/vomiting. GENITOURINARY: No hematuria/dysuria. MUSCULOSKELETAL: No myagias/arthalgias. PSYCHIATRIC: The patient denies depression. NEUROLOGIC: No weakness Constitutional: other (No focal defiocits) Psych: no complaints Head: normocephalic ENMT: mucosa pink and moist Neck: supple, jvd (9 ncm water) Respiratory: diminished breath sounds Cardiovascular: regular rate and rhythm Gastrointestinal: soft, non-tender Musculoskeletal: muscle tone (normal) Extremities: pitting pedal edema (bilateral LE) Neurological: confused Labs Result Diagram: 02/14/19 0028 02/14/19 0028 Results 24hrs Laboratory Tests Test 02/13/19 17:27 02/13/19 21:26 02/13/19 23:59 02/14/19 00:28 Bedside Glucose 168 181 150 White Blood Count 8.4 Red Blood Count 2.55 L Hemoglobin 7.4 L Hematocrit 24.7 L Mean Corpuscular 96.9 Volume Mean Corpuscular 29.0 Hemoglobin Mean Corpuscular 30.0 L Hemoglobin Concen t Red Cell 21.5 H Distribution Width Platelet Count 106 L Mean Platelet 12.9 H Volume Immature 0.500 H Granulocytes % Neutrophils % 75.4 Lymphocytes % 19.7 Monocytes % 3.2 Eosinophils % 1.0 Basophils % 0.2 Nucleated Red 1.1 H Blood Cells % Immature 0.040 H Granulocytes # Neutrophils # 6.3 Lymphocytes # 1.7 Monocytes # 0.3 Eosinophils # 0.1 Basophils # 0.0 Nucleated Red 0.1 H Blood Cells # Sodium Level 150 H Potassium Level 4.0 Chloride Level 116 H Carbon Dioxide 30 Level Anion Gap 4 L Blood Urea 89 H Nitrogen Creatinine 1.91 H Est Glomerular Filtrat Rate mL/min Glucose Level 126 Lactic Acid Level 2.3 *H Calcium Level 8.0 L Test 02/14/19 01:00 02/14/19 05:34 02/14/19 08:35 Blood Gas Blood arterial Specimen Source Arterial Blood 02/14/2019 12:50: Date Drawn 00 AM Arterial Blood pH 7.480 H (Temp corrected) Arterial Blood 35.8 pCO2 (Temp correct) Arterial Blood 58.7 L pO2 (Temp corrected) Arterial Blood 26.1 H HCO3 Arterial Blood 2.5 Base Excess Arterial Blood 91.4 L Oxygen Saturation Manuel Test ACCEPTAB Arterial Blood Right Radial Gas Puncture Site Arterial 0.6 Blood Carboxyhemo globin Arterial Blood 0.4 Methemoglobin Blood Gas A-a O2 113.1 H Differential Oxyhemoglobin 90.5 L Percent Blood Gas 37.0 Temperature Blood Gas 20.0 Respiration Rate Blood Gas Actual 33 Respiration Rate Blood Gas MASK - BIPAP Modality FiO2 30.0 Blood Gas 10 Pressure Support Blood Gas 18/8 IPAP/EPAP Ratio Blood Gas MA Notified Whom Blood Gas 02/14/2019 1:03:4 Notified Time 2 AM Bedside Glucose 81 90 Medications Medications Current Medications Lactulose (Enulose) 20 gm DAILY PRN PO CONSTIPATION; Start 01/17/19 at 18:17 Acetaminophen (Tylenol Tab) 650 mg Q4H PRN PO PAIN Last administered on 02/11/19 21:29; Admin Dose 650 MG; Start 01/17/19 at 18:17 Miscellaneous Information (Pending [facility] Order For Wound Care) This patient ramirez... PRN PRN XX WOUND CARE; Start 01/17/19 at 18:17 Albuterol/ Ipratropium (Duoneb) 3 ml Q2H RESP THERAPY PRN HHN SHORTNESS OF BREATH Last administered on 02/13/19at 05:52; Admin Dose 3 ML; Start 01/17/19 at 18:17 Bisacodyl (Dulcolax) 10 mg BID PRN PO CONSTIPATION; Start 01/17/19 at 18:17; Status Hold Folic Acid (Folic Acid) 1 mg DAILY PO Last administered on 02/14/19 08:22; Admin Dose 1 MG; Start 01/17/19 at 18:17 Latanoprost (Xalatan) 1 drop HS BOTH EYES Last administered on 02/13/19at 21:29; Admin Dose 1 DROP; Start 01/17/19 at 18:17 Nitroglycerin (Nitroglycerin (Sl Tab) 0.4 Mg) 0.4 tab Q5M PRN SL CHEST PAIN; Start 01/17/19 at 18:17 Nystatin (Nystatin Powder) 1 applic BID TOP Last administered on 02/14/19 09:35; Admin Dose 1 APPLIC; Start 01/17/19 at 18:17 IV Flush (NS 3 ml) 3 ml PER PROTOCOL IV ; Start 01/17/19 at 18:17 Miscellaneous Information 1 ea NOTE XX ; Start 01/17/19 at 18:17 Glucose (Glutose) 15 gm Q15M PRN PO DECREASED GLUCOSE; Start 01/17/19 at 18:17 Glucose (Glutose) 22.5 gm Q15M PRN PO DECREASED GLUCOSE; Start 01/17/19 at 18:17 Dextrose (D50w Syringe) 25 ml Q15M PRN IV DECREASED GLUCOSE Last administered on 02/11/19at 18:27; Admin Dose 25 ML; Start 01/17/19 at 18:17 Dextrose (D50w Syringe) 50 ml Q15M PRN IV DECREASED GLUCOSE; Start 01/17/19 at 18:17 Glucagon (Glucagen) 1 mg Q15M PRN IM DECREASED GLUCOSE Last administered on 02/11/19at 17:55; Admin Dose 1 MG; Start 01/17/19 at 18:17 Glucose (Glutose) 15 gm Q15M PRN BUCCAL DECREASED GLUCOSE; Start 01/17/19 at 18:17 Ascorbic Acid (Vitamin C) 250 mg DAILY PO Last administered on 02/14/19at 08:22; Admin Dose 250 MG; Start 01/17/19 at 18:17 Bisacodyl (Dulcolax Supp) 10 mg DAILY PRN [place] CONSTIPATION; Start 01/17/19 at 18:17 Zinc Acetate/ Diphenhydramine (Benadryl 2% Cr) 1 applic Q6H PRN TOP ITCHING Last administered on 01/26/19at 07:54; Admin Dose 1 APPLIC; Start 01/19/19 at 16:37 IV Flush (NS 10 ml) 10 ml PRN PRN IV IV PROTOCOL; Start 01/20/19 at 14:30 Cyanocobalamin (Vitamin B12 Inj) 1,000 mcg Q7D IM Last administered on 02/10/19at 09:50; Admin Dose 1,000 MCG; Start 02/03/19 at 09:00 Metoprolol Tartrate (Lopressor) 5 mg Q4H PRN IV HR>110 Hold SBP<100; Start 01/26/19 at 14:30 Vancomycin HCl (Vanco Iv Per Pharmacy) VANCOMYCIN PER PHARMACY PER PROTOCOL XX ; Start 01/27/19 at 12:00 Enoxaparin Sodium (Lovenox) 60 mg DAILY SC Last administered on 02/03/19at 08:06; Admin Dose 60 MG; Start 01/28/19 at 09:00; Status Hold Atorvastatin Calcium (Lipitor) 40 mg QHS NGT Last administered on 02/13/19 21:27; Admin Dose 40 MG; Start 01/28/19 at 21:00 Docusate Sodium (Colace Liquid Cup) 100 mg BID NGT ; Start 01/27/19 at 22:00; Status Hold Terazosin HCl (Hytrin) 10 mg HS NGT Last administered on 02/13/19 21:27; Admin Dose 10 MG; Start 01/28/19 at 21:00 Levothyroxine Sodium (Synthroid) 125 mcg BEFORE BREAKFAST NGT Last administered on 02/14/19 06:56; Admin Dose 125 MCG; Start 01/28/19 at 07:00 Ferrous Sulfate (Feosol Liquid Cup) 300 mg WITH MEALS GTB Last administered on 02/14/19 08:15; Admin Dose 300 MG; Start 01/28/19 at 11:30 Multivitamins (Multivitamin) 30 ml DAILY GTB Last administered on 02/14/19 08:22; Admin Dose 30 ML; Start 01/28/19 at 11:00 Diagnostic Test (Pha) (Accu-Chek) 1 ea Q4 XX Last administered on 02/14/19 08:36; Admin Dose 1 EA; Start 01/28/19 at 13:00 Nystatin/ Triamcinolone Acetonide (Mycolog Oint) 1 applic BID TOP Last administered on 02/14/19 08:24; Admin Dose 1 APPLIC; Start 01/28/19 at 22:30 Insulin Aspart (Novolog Insulin Pen) NOVOLOG *MILD* ALGORI... Q4 SC Last administered on 02/13/19 21:34; Admin Dose 1 UNIT; Start 01/29/19 at 05:00 Albuterol/ Ipratropium (Duoneb) 3 ml Q6HWA RESP THERAPY HHN Last administered on 02/14/19 08:25; Admin Dose 3 ML; Start 01/29/19 at 14:00 Epoetin Dae-epbx (RETACRIT(non-esrd)) 40,000 unit Mo@1700 SC Last administered on 02/10/19 18:06; Admin Dose 40,000 UNIT; Start 02/03/19 at 17:00 Insulin Glargine (Lantus) 10 units DAILY@2000 SC Last administered on 02/13/19 21:35; Admin Dose 10 UNITS; Start 01/31/19 at 20:00 Aztreonam 1 gm/ Dextrose 50 ml @ 100 mls/hr Q12 IVPB Last administered on 02/14/19 10:52; Admin Dose 100 MLS/HR; Start 02/03/19 at 21:00 Metoprolol Tartrate (Lopressor) 12.5 mg BID PO Last administered on 02/13/19 21:28; Admin Dose 12.5 MG; Start 02/05/19 at 21:00 Eye Lubricant (Refresh Plus) 1 drop QID BOTH EYES Last administered on 02/14/19 09:35; Admin Dose 1 DROP; Start 02/06/19 at 09:00 Eye Lubricant (Akwa Oint) 1 applic HS LEFT EYE Last administered on 02/13/19 21:29; Admin Dose 1 APPLIC; Start 02/06/19 at 21:00 Multi-Ingredient Ointment (Aquaphor Oint 52.5 Gm) 1 applic BID TOP Last administered on 02/14/19 08:23; Admin Dose 1 APPLIC; Start 02/06/19 at 22:40 Lansoprazole (Prevacid) 30 mg BID@0600,1800 NGT Last administered on 02/14/19 06:56; Admin Dose 30 MG; Start 02/07/19 at 18:00 Tobramycin Sulfate/Sodium Chloride (Nilesh Inhal) 300 mg BID RESP THERAPY NEB Last administered on 02/14/19 08:48; Admin Dose 300 MG; Start 02/08/19 at 09:00 Morphine Sulfate (morphine) 0.5 mg Q4H PRN IV SEVERE PAIN LEVEL 7-10 Last administered on 02/10/19 18:18; Admin Dose 0.5 MG; Start 02/08/19 at 19:00 Vancomycin HCl 750 mg/Dextrose 250 ml @ 125 mls/hr Q72H IVPB Last administered on 02/12/19 22:24; Admin Dose 125 MLS/HR; Start 02/09/19 at 23:00 Furosemide (Lasix) 20 mg BID IV Last administered on 02/13/19 21:30; Admin Dose 20 MG; Start 02/13/19 at 00:30 Norepinephrine 250 ml @ 1.875 mls/ hr TITRATE IV ; Start 02/14/19 at 03:00 MARJORIE JAIN February 14, 2019 12:26
--- NOTE | 2019-02-14 12:38 | CONS ---
Assessment/Plan Assessment/Plan Hospital Course 88 yo M with multiple comorbidities who initially presented for evaluation of hiccups. He was noted to become acutely altered... for which neurology is consulted. He has been transferred to the ICU on several occasions due to ams in the context of respiratory distress and ? seizures.. On 02/14, he was transferred to the ICU for hypotension. The clinical picture suggests an acute toxic-metabolic encephalopathy.. Meningoencephalitis is, though, not entirely excluded. MRI brain is without acute ischemia, though notable for chronic infarcts. EEG was without ongoing epileptiform activity LP for CSF valuation was declined by medical decision makers. P: OK to Cont Keppra 500 BID for now Ativan IV PRN prolonged seizure (> 5 min) Agree w/ ASA/Lipitor daily pending the above Limit sedating medications where possible Other medical management per primary Will follow clinically Consultation Date/Type/Reason Admit Date/Time Jan 17, 2019 at 15:58 Type of Consult Neurology Reason for Consultation ams; eval for stroke Requesting Provider: IVAN AKHTAR MD Date/Time of Note DATE: 02/14/19 TIME: 12:38 24 HR Interval Summary Free Text/Dictation Transferred to ICU overnight for hypotension. Subjective hx not possible: pt non-verbal Exam Vital Signs Vitals Vital Signs Date Temp Pulse Resp B/P (MAP) Pulse Ox O2 O2 Flow FiO2 Time Delivery Rate 02/14/19 77 17 105/46 95 09:00 (65) 02/14/19 97.8 08:00 02/14/19 50 06:02 02/14/19 10.0 04:05 02/14/19 Nasal 01:04 Cannula Intake and Output 02/13/19 02/13/19 02/14/19 1515:00 23:00 07:00 IntakeIntake Total 880 ml OutputOutput Total 620 ml BalanceBalance 260 ml Exam PE: Gen Appearance: No Apparent Distress HEENT: Normocephalic Cardiovascular: Regular rate Abdomen: Soft Extremities: Dry, skin peeling NE: The patient was awake and alert. Sparsely verbal. Able to track. Follows simple appendicular commands. Cranial nerve examination was limited by mental status. Pupils were equal and reactive to light. There was no afferent pupillary defect. Funduscopic examination was limited. Face was grossly symmetric. Tone was normal. Muscle bulk was normal. I did not see fasciculations. The patient was generally very weak, LE>UE Coordination and gait testing was limited by mental status. Arm and leg reflexes were within normal limits and symmetric. Gray's sign was absent. Plantar responses were flexor. NEGRA CORONA NP February 14, 2019 12:38
--- NOTE | 2019-02-14 13:10 | CONS ---
Assessment/Plan Assessment/Plan Hospital Course (Demo Recall) Patient was transferred to ICU secondary to acute hypoxemic respiratory failure he is on high flow oxygen looks comfortable afebrile daughter at bedside WBC 8.4 H&H 7.4 and 24.7 platelets 106 neutrophils 75.4 BUN 89 creatinine 1.91 Antimicrobials: Vancomycin, aztreonam, tobramycin inhalation Indwelling: Left subclavian triple-lumen catheter, Wade catheter, NG tube Allergy: Penicillin, sulfa Physical examination: Obese well-developed chronically ill-appearing - [place] man who is lethargic, in no distress. Head atraumatic normocephalic sclera nonicteric. Neck is supple chest rise symmetrical breath sounds diminished bases. Heart: S1-S2. Abdomen obese soft bowel sounds present extremities without cyanosis, bilateral edema Assessment: 1. Sepsis s/p shock 2. Acute hypoxemic respiratory failure, likely ongoing aspiration 2. Acute encephalopathy 3. Seizures 4. Healthcare acquired pneumonia 5. Coronary artery disease/history of CABG 6. Advanced rheumatoid arthritis 5. Chronic atrial fibrillation 6. Diabetes 7. BPH 9. Acute on chronic anemia===> s/p EGD/colonoscopy 01/09/19 10. Status post right epididymitis 11. Pancreatic lesion per CT, unlikely neoplasm per oncology notes 12. 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 Skin lesions, s/p punch bx, pathology consistent with allergic reaction Plan: Remains unchanged, continue present care, continue antibiotics for couple more days, follow pulmonary recommendations, prognosis very poor Consultation Date/Type/Reason Admit Date/Time Jan 17, 2019 at 15:58 Initial Consult Date 01/18/19 Type of Consult id Requesting Provider: IVAN AKHTAR MD Date/Time of Note DATE: 02/14/19 TIME: 13:09 Exam/Review of Systems Exam Vitals Vital Signs Date Temp Pulse Resp B/P (MAP) Pulse Ox O2 O2 Flow FiO2 Time Delivery Rate 02/14/19 77 17 105/46 95 09:00 (65) 02/14/19 97.8 08:00 02/14/19 50 06:02 02/14/19 10.0 04:05 02/14/19 Nasal 01:04 Cannula Intake and Output 02/13/19 02/13/19 02/14/19 1515:00 23:00 07:00 IntakeIntake Total 880 ml OutputOutput Total 620 ml BalanceBalance 260 ml Results Result Diagram: 02/14/19 0028 02/14/19 0028 Results 24hrs Laboratory Tests Test 02/13/19 17:27 02/13/19 21:26 02/13/19 23:59 02/14/19 00:28 Bedside Glucose 168 181 150 White Blood Count 8.4 Red Blood Count 2.55 L Hemoglobin 7.4 L Hematocrit 24.7 L Mean Corpuscular 96.9 Volume Mean Corpuscular 29.0 Hemoglobin Mean Corpuscular 30.0 L Hemoglobin Concen t Red Cell 21.5 H Distribution Width Platelet Count 106 L Mean Platelet 12.9 H Volume Immature 0.500 H Granulocytes % Neutrophils % 75.4 Lymphocytes % 19.7 Monocytes % 3.2 Eosinophils % 1.0 Basophils % 0.2 Nucleated Red 1.1 H Blood Cells % Immature 0.040 H Granulocytes # Neutrophils # 6.3 Lymphocytes # 1.7 Monocytes # 0.3 Eosinophils # 0.1 Basophils # 0.0 Nucleated Red 0.1 H Blood Cells # Sodium Level 150 H Potassium Level 4.0 Chloride Level 116 H Carbon Dioxide 30 Level Anion Gap 4 L Blood Urea 89 H Nitrogen Creatinine 1.91 H Est Glomerular Filtrat Rate mL/min Glucose Level 126 Lactic Acid Level 2.3 *H Calcium Level 8.0 L Test 02/14/19 01:00 02/14/19 05:34 02/14/19 08:35 Blood Gas Blood arterial Specimen Source Arterial Blood 02/14/2019 12:50: Date Drawn 00 AM Arterial Blood pH 7.480 H (Temp corrected) Arterial Blood 35.8 pCO2 (Temp correct) Arterial Blood 58.7 L pO2 (Temp corrected) Arterial Blood 26.1 H HCO3 Arterial Blood 2.5 Base Excess Arterial Blood 91.4 L Oxygen Saturation Manuel Test ACCEPTAB Arterial Blood Right Radial Gas Puncture Site Arterial 0.6 Blood Carboxyhemo globin Arterial Blood 0.4 Methemoglobin Blood Gas A-a O2 113.1 H Differential Oxyhemoglobin 90.5 L Percent Blood Gas 37.0 Temperature Blood Gas 20.0 Respiration Rate Blood Gas Actual 33 Respiration Rate Blood Gas MASK - BIPAP Modality FiO2 30.0 Blood Gas 10 Pressure Support Blood Gas 18/8 IPAP/EPAP Ratio Blood Gas IN Notified Whom Blood Gas 02/14/2019 1:03:4 Notified Time 2 AM Bedside Glucose 81 90 Medications Medication Current Medications Lactulose (Enulose) 20 gm DAILY PRN PO CONSTIPATION; Start 01/17/19 at 18:17 Acetaminophen (Tylenol Tab) 650 mg Q4H PRN PO PAIN Last administered on 02/11/19at 21:29; Admin Dose 650 MG; Start 01/17/19 at 18:17 Miscellaneous Information ([facility]) This patient ramirez... PRN PRN XX WOUND CARE; Start 01/17/19 at 18:17 Albuterol/ Ipratropium (Duoneb) 3 ml Q2H RESP THERAPY PRN HHN SHORTNESS OF BREATH Last administered on 02/13/19at 05:52; Admin Dose 3 ML; Start 01/17/19 at 18:17 Bisacodyl (Dulcolax) 10 mg BID PRN PO CONSTIPATION; Start 01/17/19 at 18:17; Status Hold Folic Acid (Folic Acid) 1 mg DAILY PO Last administered on 02/14/19 08:22; Admin Dose 1 MG; Start 01/17/19 at 18:17 Latanoprost (Xalatan) 1 drop HS BOTH EYES Last administered on 02/13/19at 21:29; Admin Dose 1 DROP; Start 01/17/19 at 18:17 Nitroglycerin (Nitroglycerin (Sl Tab) 0.4 Mg) 0.4 tab Q5M PRN SL CHEST PAIN; Start 01/17/19 at 18:17 Nystatin (Nystatin Powder) 1 applic BID TOP Last administered on 02/14/19 09:35; Admin Dose 1 APPLIC; Start 01/17/19 at 18:17 IV Flush (NS 3 ml) 3 ml PER PROTOCOL IV ; Start 01/17/19 at 18:17 Miscellaneous Information 1 ea NOTE XX ; Start 01/17/19 at 18:17 Glucose (Glutose) 15 gm Q15M PRN PO DECREASED GLUCOSE; Start 01/17/19 at 18:17 Glucose (Glutose) 22.5 gm Q15M PRN PO DECREASED GLUCOSE; Start 01/17/19 at 18:17 Dextrose (D50w Syringe) 25 ml Q15M PRN IV DECREASED GLUCOSE Last administered on 02/11/19at 18:27; Admin Dose 25 ML; Start 01/17/19 at 18:17 Dextrose (D50w Syringe) 50 ml Q15M PRN IV DECREASED GLUCOSE; Start 01/17/19 at 18:17 Glucagon (Glucagen) 1 mg Q15M PRN IM DECREASED GLUCOSE Last administered on 02/11/19at 17:55; Admin Dose 1 MG; Start 01/17/19 at 18:17 Glucose (Glutose) 15 gm Q15M PRN BUCCAL DECREASED GLUCOSE; Start 01/17/19 at 18:17 Ascorbic Acid (Vitamin C) 250 mg DAILY PO Last administered on 02/14/19at 08:22; Admin Dose 250 MG; Start 01/17/19 at 18:17 Bisacodyl (Dulcolax Supp) 10 mg DAILY PRN [place] CONSTIPATION; Start 01/17/19 at 18:17 Zinc Acetate/ Diphenhydramine (Benadryl 2% Cr) 1 applic Q6H PRN TOP ITCHING Last administered on 01/26/19at 07:54; Admin Dose 1 APPLIC; Start 01/19/19 at 16:37 IV Flush (NS 10 ml) 10 ml PRN PRN IV IV PROTOCOL; Start 01/20/19 at 14:30 Cyanocobalamin (Vitamin B12 Inj) 1,000 mcg Q7D IM Last administered on 02/10/19at 09:50; Admin Dose 1,000 MCG; Start 02/03/19 at 09:00 Metoprolol Tartrate (Lopressor) 5 mg Q4H PRN IV HR>110 Hold SBP<100; Start 01/26/19 at 14:30 Vancomycin HCl (Vanco Iv Per Pharmacy) VANCOMYCIN PER PHARMACY PER PROTOCOL XX ; Start 01/27/19 at 12:00 Enoxaparin Sodium (Lovenox) 60 mg DAILY SC Last administered on 02/03/19at 08:06; Admin Dose 60 MG; Start 01/28/19 at 09:00; Status Hold Atorvastatin Calcium (Lipitor) 40 mg QHS NGT Last administered on 02/13/19at 21:27; Admin Dose 40 MG; Start 01/28/19 at 21:00 Docusate Sodium (Colace Liquid Cup) 100 mg BID NGT ; Start 01/27/19 at 22:00; Status Hold Terazosin HCl (Hytrin) 10 mg HS NGT Last administered on 02/13/19at 21:27; Admin Dose 10 MG; Start 01/28/19 at 21:00 Levothyroxine Sodium (Synthroid) 125 mcg BEFORE BREAKFAST NGT Last administered on 02/14/19 06:56; Admin Dose 125 MCG; Start 01/28/19 at 07:00 Ferrous Sulfate (Feosol Liquid Cup) 300 mg WITH MEALS GTB Last administered on 02/14/19 08:15; Admin Dose 300 MG; Start 01/28/19 at 11:30 Multivitamins (Multivitamin) 30 ml DAILY GTB Last administered on 02/14/19 08:22; Admin Dose 30 ML; Start 01/28/19 at 11:00 Diagnostic Test (Pha) (Accu-Chek) 1 ea Q4 XX Last administered on 02/14/19 08:36; Admin Dose 1 EA; Start 01/28/19 at 13:00 Nystatin/ Triamcinolone Acetonide (Mycolog Oint) 1 applic BID TOP Last administered on 02/14/19 08:24; Admin Dose 1 APPLIC; Start 01/28/19 at 22:30 Insulin Aspart (Novolog Insulin Pen) NOVOLOG *MILD* ALGORI... Q4 SC Last administered on 02/13/19 21:34; Admin Dose 1 UNIT; Start 01/29/19 at 05:00 Albuterol/ Ipratropium (Duoneb) 3 ml Q6HWA RESP THERAPY HHN Last administered on 02/14/19 08:25; Admin Dose 3 ML; Start 01/29/19 at 14:00 Epoetin Dae-epbx (RETACRIT(non-esrd)) 40,000 unit Mo@1700 SC Last administered on 02/10/19 18:06; Admin Dose 40,000 UNIT; Start 02/03/19 at 17:00 Insulin Glargine (Lantus) 10 units DAILY@2000 SC Last administered on 02/13/19 21:35; Admin Dose 10 UNITS; Start 01/31/19 at 20:00 Aztreonam 1 gm/ Dextrose 50 ml @ 100 mls/hr Q12 IVPB Last administered on 02/14/19 10:52; Admin Dose 100 MLS/HR; Start 02/03/19 at 21:00 Metoprolol Tartrate (Lopressor) 12.5 mg BID PO Last administered on 02/13/19 21:28; Admin Dose 12.5 MG; Start 02/05/19 at 21:00 Eye Lubricant (Refresh Plus) 1 drop QID BOTH EYES Last administered on 02/14/19 09:35; Admin Dose 1 DROP; Start 02/06/19 at 09:00 Eye Lubricant (Akwa Oint) 1 applic HS LEFT EYE Last administered on 02/13/19 21:29; Admin Dose 1 APPLIC; Start 02/06/19 at 21:00 Multi-Ingredient Ointment (Aquaphor Oint 52.5 Gm) 1 applic BID TOP Last administered on 02/14/19 08:23; Admin Dose 1 APPLIC; Start 02/06/19 at 22:40 Lansoprazole (Prevacid) 30 mg BID@0600,1800 NGT Last administered on 02/14/19 06:56; Admin Dose 30 MG; Start 02/07/19 at 18:00 Tobramycin Sulfate/Sodium Chloride (Nilesh Inhal) 300 mg BID RESP THERAPY NEB Last administered on 02/14/19 08:48; Admin Dose 300 MG; Start 02/08/19 at 09:00 Morphine Sulfate (morphine) 0.5 mg Q4H PRN IV SEVERE PAIN LEVEL 7-10 Last administered on 02/10/19 18:18; Admin Dose 0.5 MG; Start 02/08/19 at 19:00 Vancomycin HCl 750 mg/Dextrose 250 ml @ 125 mls/hr Q72H IVPB Last administered on 02/12/19 22:24; Admin Dose 125 MLS/HR; Start 02/09/19 at 23:00 Furosemide (Lasix) 20 mg BID IV Last administered on 02/13/19 21:30; Admin Dose 20 MG; Start 02/13/19 at 00:30 Norepinephrine 250 ml @ 1.875 mls/ hr TITRATE IV ; Start 02/14/19 at 03:00 LUCIAN HARKINS NP February 14, 2019 13:10
--- NOTE | 2019-02-14 15:06 | CONS ---
Assessment/Plan Assessment/Plan Assessment/Plan (Daily) Hospital Course (Demo Recall) 88 [facility]B and febrile 1. Severe anemia likely due to chronic disease, last work up while admitted to [facility] about a week ago was neg for GI bleeding, including EGD/colon which was done -s/p EGD and colonoscopy by Dr Verdin 01/09/19 which didn't find an obvious GI etiology to explain anemia. AVM or a small lesion could be missed due to poor prep. Pt likely needs capsule endoscopy -Neg fob, elevate retic, Low iron, tibc, and sat, ferritin [place] [id number] 2. Cystic lesion along pancreas body - 4.3 cm cystic lesion along the pancreas body, enlarged since 10/10/2012 (previously 2.4 cm). 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 -CEA wnl 3. Severe gastritis 4. Hemorrhoids 5. Hital hernia 6. A fib, -eliquis was stopped 01/06 during previous admission, on ASA 7. COPD 8. HTN 9. Hypothyroidism 10. Bilateral groin cellulitis 11. Rheumatoid arthritis. 12. Diabetes mellitus. 13. Peripheral vascular disease. 14. CHF 15. 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 Sepsis secondary to pneumonia 18. Encephalopathy secondary to sepsis 19. Hypothermia 20. Coagulopathy -INR 1.77 21. Positive wound culture -CORYNEBACTERIUM SPECIES 22 extensive rash all over the body including the face 23 respiratory failure Plan: Family has consented to PEG but pt is not stable Patient is volume overload and is on 40 % O2. Once his condition is stable will proceed with placement of G-tube Continue present care Consultation Date/Type/Reason Admit Date/Time Jan 17, 2019 at 15:58 Initial Consult Date 01/18/19 Requesting Provider: IVAN AKHTAR MD Date/Time of Note DATE: 02/14/19 TIME: 15:04 24 HR Interval Summary Free Text/Dictation Patient transferred to ICU for respiratory distress Constitutional: disoriented Exam/Review of Systems Exam Vitals Vital Signs Date Temp Pulse Resp B/P (MAP) Pulse Ox O2 O2 Flow FiO2 Time Delivery Rate 02/14/19 84 26 96 Nasal 40 14:22 Cannula 02/14/19 105/46 09:00 (65) 02/14/19 97.8 08:00 02/14/19 10.0 04:05 Intake and Output 02/13/19 02/13/19 02/14/19 1515:00 23:00 07:00 IntakeIntake Total 880 ml OutputOutput Total 620 ml BalanceBalance 260 ml Constitutional: frail Psych: confusion Respiratory: diminished breath sounds Extremities: normal pulses Neurological: confused Results Result Diagram: 02/14/19 0028 02/14/19 0028 Results 24hrs Laboratory Tests Test 02/13/19 17:27 02/13/19 21:26 02/13/19 23:59 02/14/19 00:28 Bedside Glucose 168 181 150 White Blood Count 8.4 Red Blood Count 2.55 L Hemoglobin 7.4 L Hematocrit 24.7 L Mean Corpuscular 96.9 Volume Mean Corpuscular 29.0 Hemoglobin Mean Corpuscular 30.0 L Hemoglobin Concen t Red Cell 21.5 H Distribution Width Platelet Count 106 L Mean Platelet 12.9 H Volume Immature 0.500 H Granulocytes % Neutrophils % 75.4 Lymphocytes % 19.7 Monocytes % 3.2 Eosinophils % 1.0 Basophils % 0.2 Nucleated Red 1.1 H Blood Cells % Immature 0.040 H Granulocytes # Neutrophils # 6.3 Lymphocytes # 1.7 Monocytes # 0.3 Eosinophils # 0.1 Basophils # 0.0 Nucleated Red 0.1 H Blood Cells # Sodium Level 150 H Potassium Level 4.0 Chloride Level 116 H Carbon Dioxide 30 Level Anion Gap 4 L Blood Urea 89 H Nitrogen Creatinine 1.91 H Est Glomerular Filtrat Rate mL/min Glucose Level 126 Lactic Acid Level 2.3 *H Calcium Level 8.0 L Test 02/14/19 01:00 02/14/19 05:34 02/14/19 08:35 02/14/19 13:13 Blood Gas Blood arterial Specimen Source Arterial Blood 02/14/2019 12:50: Date Drawn 00 AM Arterial Blood pH 7.480 H (Temp corrected) Arterial Blood 35.8 pCO2 (Temp correct) Arterial Blood 58.7 L pO2 (Temp corrected) Arterial Blood 26.1 H HCO3 Arterial Blood 2.5 Base Excess Arterial Blood 91.4 L Oxygen Saturation Manuel Test ACCEPTAB Arterial Blood Right Radial Gas Puncture Site Arterial 0.6 Blood Carboxyhemo globin Arterial Blood 0.4 Methemoglobin Blood Gas A-a O2 113.1 H Differential Oxyhemoglobin 90.5 L Percent Blood Gas 37.0 Temperature Blood Gas 20.0 Respiration Rate Blood Gas Actual 33 Respiration Rate Blood Gas MASK - BIPAP Modality FiO2 30.0 Blood Gas 10 Pressure Support Blood Gas 11/05 IPAP/EPAP Ratio Blood Gas TERRI Notified Whom Blood Gas 02/14/2019 1:03:4 Notified Time 2 AM Bedside Glucose 81 90 Lactic Acid Level 1.1 Test 02/14/19 13:19 Bedside Glucose 95 Medications Medication Current Medications Lactulose (Enulose) 20 gm DAILY PRN PO CONSTIPATION; Start 01/17/19 at 18:17 Acetaminophen (Tylenol Tab) 650 mg Q4H PRN PO PAIN Last administered on 02/11/19 21:29; Admin Dose 650 MG; Start 01/17/19 at 18:17 Miscellaneous Information (Pending [facility] Order For Wound Care) This patient ramirez... PRN PRN XX WOUND CARE; Start 01/17/19 at 18:17 Albuterol/ Ipratropium (Duoneb) 3 ml Q2H RESP THERAPY PRN HHN SHORTNESS OF BREATH Last administered on 02/13/19at 05:52; Admin Dose 3 ML; Start 01/17/19 at 18:17 Bisacodyl (Dulcolax) 10 mg BID PRN PO CONSTIPATION; Start 01/17/19 at 18:17; Status Hold Folic Acid (Folic Acid) 1 mg DAILY PO Last administered on 02/14/19at 08:22; Admin Dose 1 MG; Start 01/17/19 at 18:17 Latanoprost (Xalatan) 1 drop HS BOTH EYES Last administered on 02/13/19at 21:29; Admin Dose 1 DROP; Start 01/17/19 at 18:17 Nitroglycerin (Nitroglycerin (Sl Tab) 0.4 Mg) 0.4 tab Q5M PRN SL CHEST PAIN; Start 01/17/19 at 18:17 Nystatin (Nystatin Powder) 1 applic BID TOP Last administered on 02/14/19at 09:35; Admin Dose 1 APPLIC; Start 01/17/19 at 18:17 IV Flush (NS 3 ml) 3 ml PER PROTOCOL IV ; Start 01/17/19 at 18:17 Miscellaneous Information 1 ea NOTE XX ; Start 01/17/19 at 18:17 Glucose (Glutose) 15 gm Q15M PRN PO DECREASED GLUCOSE; Start 01/17/19 at 18:17 Glucose (Glutose) 22.5 gm Q15M PRN PO DECREASED GLUCOSE; Start 01/17/19 at 18:17 Dextrose (D50w Syringe) 25 ml Q15M PRN IV DECREASED GLUCOSE Last administered on 02/11/19at 18:27; Admin Dose 25 ML; Start 01/17/19 at 18:17 Dextrose (D50w Syringe) 50 ml Q15M PRN IV DECREASED GLUCOSE; Start 01/17/19 at 18:17 Glucagon (Glucagen) 1 mg Q15M PRN IM DECREASED GLUCOSE Last administered on 02/11/19at 17:55; Admin Dose 1 MG; Start 01/17/19 at 18:17 Glucose (Glutose) 15 gm Q15M PRN BUCCAL DECREASED GLUCOSE; Start 01/17/19 at 18:17 Ascorbic Acid (Vitamin C) 250 mg DAILY PO Last administered on 02/14/19at 08:22; Admin Dose 250 MG; Start 01/17/19 at 18:17 Bisacodyl (Dulcolax Supp) 10 mg DAILY PRN ME CONSTIPATION; Start 01/17/19 at 18:17 Zinc Acetate/ Diphenhydramine (Benadryl 2% Cr) 1 applic Q6H PRN TOP ITCHING Last administered on 01/26/19at 07:54; Admin Dose 1 APPLIC; Start 01/19/19 at 16:37 IV Flush (NS 10 ml) 10 ml PRN PRN IV IV PROTOCOL; Start 01/20/19 at 14:30 Cyanocobalamin (Vitamin B12 Inj) 1,000 mcg Q7D IM Last administered on 02/10/19at 09:50; Admin Dose 1,000 MCG; Start 02/03/19 at 09:00 Metoprolol Tartrate (Lopressor) 5 mg Q4H PRN IV HR>110 Hold SBP<100; Start 01/26/19 at 14:30 Vancomycin HCl (Vanco Iv Per Pharmacy) VANCOMYCIN PER PHARMACY PER PROTOCOL XX ; Start 01/27/19 at 12:00 Enoxaparin Sodium (Lovenox) 60 mg DAILY SC Last administered on 02/03/19at 08:06; Admin Dose 60 MG; Start 01/28/19 at 09:00; Status Hold Atorvastatin Calcium (Lipitor) 40 mg QHS NGT Last administered on 02/13/19 21:27; Admin Dose 40 MG; Start 01/28/19 at 21:00 Docusate Sodium (Colace Liquid Cup) 100 mg BID NGT ; Start 01/27/19 at 22:00; Status Hold Terazosin HCl (Hytrin) 10 mg HS NGT Last administered on 02/13/19 21:27; Admin Dose 10 MG; Start 01/28/19 at 21:00 Levothyroxine Sodium (Synthroid) 125 mcg BEFORE BREAKFAST NGT Last administered on 02/14/19 06:56; Admin Dose 125 MCG; Start 01/28/19 at 07:00 Ferrous Sulfate (Feosol Liquid Cup) 300 mg WITH MEALS GTB Last administered on 02/14/19 08:15; Admin Dose 300 MG; Start 01/28/19 at 11:30 Multivitamins (Multivitamin) 30 ml DAILY GTB Last administered on 02/14/19 08:22; Admin Dose 30 ML; Start 01/28/19 at 11:00 Diagnostic Test (Pha) (Accu-Chek) 1 ea Q4 XX Last administered on 02/14/19 13:22; Admin Dose 1 EA; Start 01/28/19 at 13:00 Nystatin/ Triamcinolone Acetonide (Mycolog Oint) 1 applic BID TOP Last administered on 02/14/19 08:24; Admin Dose 1 APPLIC; Start 01/28/19 at 22:30 Insulin Aspart (Novolog Insulin Pen) NOVOLOG *MILD* ALGORI... Q4 SC Last a dministered on 02/13/19 21:34; Admin Dose 1 UNIT; Start 01/29/19 at 05:00 Albuterol/ Ipratropium (Duoneb) 3 ml Q6HWA RESP THERAPY HHN Last administered on 02/14/19 14:21; Admin Dose 3 ML; Start 01/29/19 at 14:00 Epoetin Dae-epbx (RETACRIT(non-esrd)) 40,000 unit Mo@1700 SC Last administered on 02/10/19 18:06; Admin Dose 40,000 UNIT; Start 02/03/19 at 17:00 Insulin Glargine (Lantus) 10 units DAILY@2000 SC Last administered on 02/13/19 21:35; Admin Dose 10 UNITS; Start 01/31/19 at 20:00 Aztreonam 1 gm/ Dextrose 50 ml @ 100 mls/hr Q12 IVPB Last administered on 02/14/19 10:52; Admin Dose 100 MLS/HR; Start 02/03/19 at 21:00 Metoprolol Tartrate (Lopressor) 12.5 mg BID PO Last administered on 02/13/19 21:28; Admin Dose 12.5 MG; Start 02/05/19 at 21:00 Eye Lubricant (Refresh Plus) 1 drop QID BOTH EYES Last administered on 02/14/19 13:16; Admin Dose 1 DROP; Start 02/06/19 at 09:00 Eye Lubricant (Akwa Oint) 1 applic HS LEFT EYE Last administered on 02/13/19 21:29; Admin Dose 1 APPLIC; Start 02/06/19 at 21:00 Multi-Ingredient Ointment (Aquaphor Oint 52.5 Gm) 1 applic BID TOP Last administered on 02/14/19 08:23; Admin Dose 1 APPLIC; Start 02/06/19 at 22:40 Lansoprazole (Prevacid) 30 mg BID@0600,1800 NGT Last administered on 02/14/19 06:56; Admin Dose 30 MG; Start 02/07/19 at 18:00 Tobramycin Sulfate/Sodium Chloride (Nilesh Inhal) 300 mg BID RESP THERAPY NEB Last administered on 02/14/19 08:48; Admin Dose 300 MG; Start 02/08/19 at 09:00 Morphine Sulfate (morphine) 0.5 mg Q4H PRN IV SEVERE PAIN LEVEL 7-10 Last administered on 02/10/19 18:18; Admin Dose 0.5 MG; Start 02/08/19 at 19:00 Vancomycin HCl 750 mg/Dextrose 250 ml @ 125 mls/hr Q72H IVPB Last administered on 02/12/19 22:24; Admin Dose 125 MLS/HR; Start 02/09/19 at 23:00 Furosemide (Lasix) 20 mg BID IV Last administered on 02/13/19 21:30; Admin Dose 20 MG; Start 02/13/19 at 00:30 Norepinephrine 250 ml @ 1.875 mls/ hr TITRATE IV ; Start 02/14/19 at 03:00 MICHELLE VERDIN MD February 14, 2019 15:06
[2019-02-14] MEDS: ALBUMIN HUMAN 25% 50 ML IV SCH (17:13)
[2019-02-14] MEDS: DEXTROSE 50% 50 ML SYRINGE IV PRN (17:23)
[2019-02-14] MEDS: ATORVASTATIN 40 MG TAB NGT SCH (20:49)
[2019-02-14] MEDS: TERAZOSIN 5 MG CAP NGT SCH (21:00)
[2019-02-14] MEDS: INSULIN GLARGINE [LANTus] (100 UNITS/ML) SYG SC SCH (21:01)
[2019-02-14] MEDS: DEXTROSE 10% 1,000 ML IV SCH (21:02)
[2019-02-14] MEDS: OCULAR LUBRICANT 3.5 GM OPH OINT LEFT EYE SCH (21:06)
[2019-02-14] MEDS: LATANOPROST 0.005% 2.5 ML OPH BOTH EYES SCH (21:06)
[2019-02-15] VITALS (25 sets, daily range): BP systolic 94–127; BP diastolic 36–61; PULSE 74–91; RESP 18–34
[2019-02-15] MEDS: INSULIN ASPART [NOVOLOG] 3 ML PEN SC SCH ×6 (01:00→21:00)
[2019-02-15] MEDS: ACCU-CHEK XX SCH ×6 (01:04→21:00)
[2019-02-15] MEDS: ALBUMIN HUMAN 25% 50 ML IV SCH ×2 (01:21→08:58)
[2019-02-15] MEDS: LEVOTHYROXINE 125 MCG TAB NGT SCH (06:25)
[2019-02-15] MEDS: LANSOPRAZOLE 30 MG CAP NGT SCH ×2 (06:25→17:42)
--- NOTE | 2019-02-15 08:38 | CONS ---
Assessment/Plan Assessment/Plan Assessment/Plan (Daily) Assessment and recommendations; 1. Patient admitted with hypoxemia due to combination of CHF and pneumonia. Clinically has improved. On intermittent BiPAP. 2. Chronic renal insufficiency. 3. Severe anemia and severe thrombocytopenia. 4. Valvular heart disease. Status post open heart surgery in the past. 5. Mild hypercapnic respiratory failure. 6. Dementia. Continue current supportive care. Continue BiPAP. Patient currently on high flow nasal cannula at 50% FiO2 30 L/min. Prognosis does appear very poor and palliative care should be considered. Consultation Date/Type/Reason Admit Date/Time Jan 17, 2019 at 15:58 Initial Consult Date 01/18/19 Type of Consult Pulmonary/critical care Patient's condition is tenuous at best. Remains awake and responsive. Currently in no distress. Reason for Consultation H EENT exam; supple neck, positive JVD. No lymphadenopathy. Midline trachea. No thyromegaly. Nasogastric tube in place. Patient is edentulous. No neck masses. Chest exam; diminished breath sounds throughout. S1-S2 audible, no murmurs. Regular rhythm. Abdomen exam; soft, nontender. No organomegaly. Bowel sounds audible. Extremity exam; no peripheral edema. Patient does have bullous skin disease. 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 Requesting Provider: IVAN AKHTAR MD Date/Time of Note DATE: 02/15/19 TIME: 08:35 Exam/Review of Systems Exam Vitals Vital Signs Date Temp Pulse Resp B/P (MAP) Pulse Ox O2 O2 Flow FiO2 Time Delivery Rate 02/15/19 100 50 06:02 02/15/19 83 20 Nasal 06:02 Cannula 02/15/19 100/61 05:00 (74) 02/15/19 97.7 04:00 02/14/19 10.0 04:05 Intake and Output 02/14/19 02/14/19 02/15/19 1515:00 23:00 07:00 IntakeIntake Total 480 ml 340 ml 1010 ml OutputOutput Total 360 ml 360 ml 330 ml BalanceBalance 120 ml -20 ml 680 ml Results Result Diagram: 02/15/19 0457 02/15/19 0530 Results 24hrs Laboratory Tests Test 02/14/19 13:13 02/14/19 13:19 02/14/19 17:16 02/14/19 17:43 Lactic Acid 1.1 Level Bedside Glucose 95 67 L 146 Test 02/14/19 18:05 02/14/19 20:55 02/15/19 01:24 02/15/19 02:44 Bedside Glucose 118 82 112 Blood Gas Blood arterial Specimen Source Arterial Blood 02/15/2019 2:49: Date Drawn 00 AM Arterial Blood 7.326 L pH (Temp corrected) Arterial Blood 58.1 H pCO2 (Temp correct) Arterial Blood 59.0 L pO2 (Temp corrected) Arterial Blood 29.7 H HCO3 Arterial Blood 3.1 H Base Excess Arterial Blood 86.7 L Oxygen Saturatio n Manuel Test ACCEPTAB Arterial Blood Right Radial Gas Puncture Site Arterial 0.6 Blood Carboxyhem oglobin Arterial Blood 0.6 Methemoglobin Blood Gas A-a O2 595.9 H Differential Oxyhemoglobin 85.7 L Percent Blood Gas 37.0 Temperature Blood Gas Actual 24 Respiration Rate Blood Gas ROOM AIR Modality FiO2 100.0 Blood Gas OHAYA C RN Critical Value Read Back Blood Gas KB Notified Whom Blood Gas 02/15/2019 3:00: Notified Time 00 AM Test 02/15/19 04:57 02/15/19 05:00 02/15/19 05:25 02/15/19 05:30 White Blood 7.6 Count Red Blood Count 2.23 L Hemoglobin 6.6 *L Hematocrit 22.0 L Mean Corpuscular 98.7 Volume Mean Corpuscular 29.6 Hemoglobin Mean Corpuscular 30.0 L Hemoglobin June nt Red Cell 21.3 H Distribution Width Platelet Count 87 L Mean Platelet 13.1 H Volume Immature 0.300 Granulocytes % Neutrophils % Segmented 74 Neutrophils % (Manual) Band Neutrophils 7 H % (Manual) Lymphocytes % Lymphocytes % 15 (Manual) Reactive 1 H Lymphocytes % (Manual) Monocytes % Monocytes % 1 (Manual) Eosinophils % Eosinophils % 2 (Manual) Basophils % Nucleated Red 0.7 H Blood Cells % Immature 0.020 Granulocytes # Neutrophils # Neutrophils # 5.7 (Manual) Band Neutrophils 0.5 # Lymphocytes 1.1 (Manual) Lymphocytes # Reactive 0.0 Lymphocytes # Monocytes # Monocytes # 0.0 L (Manual) Eosinophils # Basophils # Nucleated Red Blood Cells # Platelet DECREASED Estimate Giant Platelets 3 H Polychromasia 3+ Hypochromasia 1+ Poikilocytosis 1+ Anisocytosis 2+ Macrocytosis 2+ Target Cells 1+ Schistocytes 1+ Blood Gas Blood arterial Specimen Source Arterial Blood 02/15/2019 5:39: Date Drawn 34 AM Arterial Blood 7.396 pH (Temp corrected) Arterial Blood 47.2 H pCO2 (Temp correct) Arterial Blood 89.8 pO2 (Temp corrected) Arterial Blood 28.3 H HCO3 Arterial Blood 3.0 Base Excess Arterial Blood 96.4 Oxygen Saturatio n Manuel Test ACCEPTAB Arterial Blood Right Radial Gas Puncture Site Arterial 0.7 Blood Carboxyhem oglobin Arterial Blood 0.5 Methemoglobin Blood Gas A-a O2 213.6 H Differential Oxyhemoglobin 95.2 Percent Blood Gas 37.0 Temperature Blood Gas 18.0 Respiration Rate Blood Gas Actual 23 Respiration Rate Blood Gas MASK - BIPAP Modality FiO2 50.0 Blood Gas 10 Pressure Support Blood Gas 18/8 IPAP/EPAP Ratio Blood Gas OHAYA C RN Critical Value Read Back Blood Gas KM Notified Whom Blood Gas 02/08/2019 5:50: Notified Time 24 AM Bedside Glucose 102 Sodium Level 153 H Potassium Level 3.9 Chloride Level 117 H Carbon Dioxide 30 Level Anion Gap 6 Blood Urea 82 H Nitrogen Creatinine 2.00 H Est Glomerular Filtrat Rate mL/min Glucose Level 93 Calcium Level 8.1 L Test 02/15/19 08:28 Bedside Glucose 99 Medications Medication Current Medications Lactulose (Enulose) 20 gm DAILY PRN PO CONSTIPATION; Start 01/17/19 at 18:17 Acetaminophen (Tylenol Tab) 650 mg Q4H PRN PO PAIN Last administered on 02/11/19at 21:29; Admin Dose 650 MG; Start 01/17/19 at 18:17 Miscellaneous Information (Pending [facility] Order For Wound Care) This patient ramirez... PRN PRN XX WOUND CARE; Start 01/17/19 at 18:17 Albuterol/ Ipratropium (Duoneb) 3 ml Q2H RESP THERAPY PRN HHN SHORTNESS OF BREATH Last administered on 02/13/19at 05:52; Admin Dose 3 ML; Start 01/17/19 at 18:17 Bisacodyl (Dulcolax) 10 mg BID PRN PO CONSTIPATION; Start 01/17/19 at 18:17; Status Hold Folic Acid (Folic Acid) 1 mg DAILY PO Last administered on 02/14/19at 08:22; Admin Dose 1 MG; Start 01/17/19 at 18:17 Latanoprost (Xalatan) 1 drop HS BOTH EYES Last administered on 02/14/19at 21:06; Admin Dose 1 DROP; Start 01/17/19 at 18:17 Nitroglycerin (Nitroglycerin (Sl Tab) 0.4 Mg) 0.4 tab Q5M PRN SL CHEST PAIN; Start 01/17/19 at 18:17 Nystatin (Nystatin Powder) 1 applic BID TOP Last administered on 02/14/19at 21:06; Admin Dose 1 APPLIC; Start 01/17/19 at 18:17 IV Flush (NS 3 ml) 3 ml PER PROTOCOL IV ; Start 01/17/19 at 18:17 Miscellaneous Information 1 ea NOTE XX ; Start 01/17/19 at 18:17 Glucose (Glutose) 15 gm Q15M PRN PO DECREASED GLUCOSE; Start 01/17/19 at 18:17 Glucose (Glutose) 22.5 gm Q15M PRN PO DECREASED GLUCOSE; Start 01/17/19 at 18:17 Dextrose (D50w Syringe) 25 ml Q15M PRN IV DECREASED GLUCOSE Last administered on 02/14/19at 17:23; Admin Dose 25 ML; Start 01/17/19 at 18:17 Dextrose (D50w Syringe) 50 ml Q15M PRN IV DECREASED GLUCOSE; Start 01/17/19 at 18:17 Glucagon (Glucagen) 1 mg Q15M PRN IM DECREASED GLUCOSE Last administered on 02/11/19at 17:55; Admin Dose 1 MG; Start 01/17/19 at 18:17 Glucose (Glutose) 15 gm Q15M PRN BUCCAL DECREASED GLUCOSE; Start 01/17/19 at 18:17 Ascorbic Acid (Vitamin C) 250 mg DAILY PO Last administered on 02/14/19at 08:22; Admin Dose 250 MG; Start 01/17/19 at 18:17 Bisacodyl (Dulcolax Supp) 10 mg DAILY PRN CA CONSTIPATION; Start 01/17/19 at 18:17 Zinc Acetate/ Diphenhydramine (Benadryl 2% Cr) 1 applic Q6H PRN TOP ITCHING Last administered on 01/26/19at 07:54; Admin Dose 1 APPLIC; Start 01/19/19 at 16:37 IV Flush (NS 10 ml) 10 ml PRN PRN IV IV PROTOCOL; Start 01/20/19 at 14:30 Cyanocobalamin (Vitamin B12 Inj) 1,000 mcg Q7D IM Last administered on 02/10/19at 09:50; Admin Dose 1,000 MCG; Start 02/03/19 at 09:00 Metoprolol Tartrate (Lopressor) 5 mg Q4H PRN IV HR>110 Hold SBP<100; Start 01/26/19 at 14:30 Vancomycin HCl (Vanco Iv Per Pharmacy) VANCOMYCIN PER PHARMACY PER PROTOCOL XX ; Start 01/27/19 at 12:00 Enoxaparin Sodium (Lovenox) 60 mg DAILY SC Last administered on 02/03/19 08:06; Admin Dose 60 MG; Start 01/28/19 at 09:00; Status Hold Atorvastatin Calcium (Lipitor) 40 mg QHS NGT Last administered on 02/14/19 20:49; Admin Dose 40 MG; Start 01/28/19 at 21:00 Docusate Sodium (Colace Liquid Cup) 100 mg BID NGT ; Start 01/27/19 at 22:00; Status Hold Terazosin HCl (Hytrin) 10 mg HS NGT Last administered on 02/13/19 21:27; Admin Dose 10 MG; Start 01/28/19 at 21:00 Levothyroxine Sodium (Synthroid) 125 mcg BEFORE BREAKFAST NGT Last administered on 02/15/19 06:25; Admin Dose 125 MCG; Start 01/28/19 at 07:00 Ferrous Sulfate (Feosol Liquid Cup) 300 mg WITH MEALS GTB Last administered on 02/14/19 08:15; Admin Dose 300 MG; Start 01/28/19 at 11:30 Multivitamins (Multivitamin) 30 ml DAILY GTB Last administered on 02/14/19 08:22; Admin Dose 30 ML; Start 01/28/19 at 11:00 Diagnostic Test (Pha) (Accu-Chek) 1 ea Q4 XX Last administered on 02/15/19 05:20; Admin Dose 1 EA; Start 01/28/19 at 13:00 Nystatin/ Triamcinolone Acetonide (Mycolog Oint) 1 applic BID TOP Last administered on 02/14/19 21:05; Admin Dose 1 APPLIC; Start 01/28/19 at 22:30 Insulin Aspart (Novolog Insulin Pen) NOVOLOG *MILD* ALGORI... Q4 SC Last administered on 02/13/19 21:34; Admin Dose 1 UNIT; Start 01/29/19 at 05:00 Albuterol/ Ipratropium (Duoneb) 3 ml Q6HWA RESP THERAPY HHN Last administered on 02/14/19 19:32; Admin Dose 3 ML; Start 01/29/19 at 14:00 Epoetin Dae-epbx (RETACRIT(non-esrd)) 40,000 unit Mo@1700 SC Last administered on 02/10/19 18:06; Admin Dose 40,000 UNIT; Start 02/03/19 at 17:00 Insulin Glargine (Lantus) 10 units DAILY@2000 SC Last administered on 02/14/19 21:01; Admin Dose 10 UNITS; Start 01/31/19 at 20:00 Aztreonam 1 gm/ Dextrose 50 ml @ 100 mls/hr Q12 IVPB Last administered on 01/23 21:02; Admin Dose 100 MLS/HR; Start 02/03/19 at 21:00 Metoprolol Tartrate (Lopressor) 12.5 mg BID PO Last administered on 02/13/19 21:28; Admin Dose 12.5 MG; Start 02/05/19 at 21:00 Eye Lubricant (Refresh Plus) 1 drop QID BOTH EYES Last administered on 02/14/19 20:56; Admin Dose 1 DROP; Start 02/06/19 at 09:00 Eye Lubricant (Akwa Oint) 1 applic HS LEFT EYE Last administered on 02/14/19 21:06; Admin Dose 1 APPLIC; Start 02/06/19 at 21:00 Multi-Ingredient Ointment (Aquaphor Oint 52.5 Gm) 1 applic BID TOP Last administered on 02/14/19 21:05; Admin Dose 1 APPLIC; Start 02/06/19 at 22:40 Lansoprazole (Prevacid) 30 mg BID@0600,1800 NGT Last administered on 02/15/19 06:25; Admin Dose 30 MG; Start 02/07/19 at 18:00 Tobramycin Sulfate/Sodium Chloride (Nilesh Inhal) 300 mg BID RESP THERAPY NEB Last administered on 02/14/19 19:32; Admin Dose 300 MG; Start 02/08/19 at 09:00 Morphine Sulfate (morphine) 0.5 mg Q4H PRN IV SEVERE PAIN LEVEL 7-10 Last administered on 02/10/19 18:18; Admin Dose 0.5 MG; Start 02/08/19 at 19:00 Vancomycin HCl 750 mg/Dextrose 250 ml @ 125 mls/hr Q72H IVPB Last administered on 02/12/19 22:24; Admin Dose 125 MLS/HR; Start 02/09/19 at 23:00 Furosemide (Lasix) 20 mg BID IV Last administered on 02/14/19 21:10; Admin Dose 20 MG; Start 02/13/19 at 00:30 Norepinephrine 250 ml @ 1.875 mls/ hr TITRATE IV ; Start 02/14/19 at 03:00 Albumin Human 50 ml @ 100 mls/hr Q8H IV Last administered on 02/15/19 01:21; Admin Dose 100 MLS/HR; Start 02/14/19 at 16:30; Stop 02/15/19 at 08:59 Miscellaneous Information (*Rx Drug Level Order Reminder*) VANCO TR LEVEL PRIOR... ONCE ONCE XX ; Start 02/15/19 at 22:00; Stop 02/15/19 at 22:01 Dextrose 1,000 ml @ 40 mls/hr Q24H IV Last administered on 02/14/19 21:02; Admin Dose 40 MLS/HR; Start 02/14/19 at 19:00 LOVE HAWK February 15, 2019 08:38
[2019-02-15] MEDS: ASCORBIC ACID 250 MG TAB PO SCH (08:57)
[2019-02-15] MEDS: FERROUS SULFATE 60 MG/ML 5ML CUP GTB SCH ×3 (08:57→17:42)
[2019-02-15] MEDS: AZTREONAM 1 GM in DEXTROSE 5% 50 ML IVPB SCH (08:57)
[2019-02-15] MEDS: CARBOXYMETHYLCELLULOSE 0.5% 0.4 ML OPH BOTH EYES SCH ×4 (08:57→21:00)
[2019-02-15] MEDS: MULTIVITAMINS 30 ML CUP GTB SCH (08:58)
[2019-02-15] MEDS: FOLIC ACID 1 MG TAB PO SCH (08:59)
[2019-02-15] MEDS: METOPROLOL 25 MG TAB PO SCH ×2 (08:59→21:00)
--- NOTE | 2019-02-15 08:59 | PN ---
Date/Time of Note Date/Time of Note DATE: 02/15/19 TIME: 08:59 Assessment/Plan VTE Prophylaxis Risk score (from Nsg)>0 risk: 11 SCD applied (from Nsg): No Lines/Catheters IV Catheter Type (from Nrs): Central Line Urinary Cath still in place: Yes Assessment/Plan Hospital Course 1. Sepsis, Lactic acid is elevated. Pt is hypotensive, low core temperature. Urine is cloudy. 2. Severe anemia 3. Chronic renal failure likely secondary to sepsis 4. Hypertension. 5. Hyperlipidemia. 6. Hypothyroidism. 7. Normocytic normochromic chronic anemia with recent hemoglobin drop. 8. Bilateral groin cellulitis more likely associated with mateus, patches in groin and axilla bilaterally. skin peeling 9. History of rheumatoid arthritis with joint deformities. 10. Diabetes type 2. 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 Peripheral vascular disease. 13. Chronic a.fib 14. right arm edema, better 15. Neoplasm per CT abdomen. 4.3 cm cystic lesion along the pancreas body, enlarged since 10/10/2012 (previously 2.4 cm). 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 16. Possible allergic skin reaction, biopsy is obtained 17. altered mental status delirium vs stroke, resolved 18. Hypernatremia 156 from 152 19. Eye muscle paralysis. Result Diagram: 02/15/19 0457 02/15/19 0530 Results 24hrs Laboratory Tests Test 02/14/19 13:13 02/14/19 13:19 02/14/19 17:16 02/14/19 17:43 Lactic Acid 1.1 Level Bedside Glucose 95 67 L 146 Test 02/14/19 18:05 02/14/19 20:55 02/15/19 01:24 02/15/19 02:44 Bedside Glucose 118 82 112 Blood Gas Blood Specimen arterial Source Arterial Blood 02/15/2019 2:49 Date Drawn :00 AM Arterial Blood 7.326 L pH (Temp corrected ) Arterial Blood 58.1 H pCO2 (Temp correct) Arterial Blood 59.0 L pO2 (Temp corrected ) Arterial Blood 29.7 H HCO3 Arterial Blood 3.1 H Base Excess Arterial Blood 86.7 L Oxygen Saturati on Manuel Test ACCEPTAB Arterial Blood Right Radial Gas Puncture Site Arterial 0.6 Blood Carboxyhe moglobin Arterial Blood 0.6 Methemoglobin Blood Gas A-a 595.9 H O2 Differential Oxyhemoglobin 85.7 L Percent Blood Gas 37.0 Temperature Blood Gas 24 Actual Respiration Rat e Blood Gas ROOM AIR Modality FiO2 100.0 Blood Gas OHAYA C RN Critical Value Read Back Blood Gas KB Notified Whom Blood Gas 02/15/2019 3:00 Notified Time :00 AM Test 02/15/19 04:57 02/15/19 05:00 02/15/19 05:25 02/15/19 05:30 White Blood 7.6 Count Red Blood Count 2.23 L Hemoglobin 6.6 *L Hematocrit 22.0 L Mean 98.7 Corpuscular Volume Mean 29.6 Corpuscular Hemoglobin Mean 30.0 L Corpuscular Hemoglobin Conc ent Red Cell 21.3 H Distribution Width Platelet Count 87 L Mean Platelet 13.1 H Volume Immature 0.300 Granulocytes % Neutrophils % Segmented 74 Neutrophils % (Manual) Band 7 H Neutrophils % (Manual) Lymphocytes % Lymphocytes % 15 (Manual) Reactive 1 H Lymphocytes % (Manual) Monocytes % Monocytes % 1 (Manual) Eosinophils % Eosinophils % 2 (Manual) Basophils % Nucleated Red 0.7 H Blood Cells % Immature 0.020 Granulocytes # Neutrophils # Neutrophils # 5.7 (Manual) Band 0.5 Neutrophils # Lymphocytes 1.1 (Manual) Lymphocytes # Reactive 0.0 Lymphocytes # Monocytes # Monocytes # 0.0 L (Manual) Eosinophils # Basophils # Nucleated Red Blood Cells # Platelet DECREASED Estimate Giant Platelets 3 H Polychromasia 3+ Hypochromasia 1+ Poikilocytosis 1+ Anisocytosis 2+ Macrocytosis 2+ Target Cells 1+ Schistocytes 1+ Blood Gas Blood arterial Specimen Source Arterial Blood 02/15/2019 5:39: Date Drawn 34 AM Arterial Blood 7.396 pH (Temp corrected ) Arterial Blood 47.2 H pCO2 (Temp correct) Arterial Blood 89.8 pO2 (Temp corrected ) Arterial Blood 28.3 H HCO3 Arterial Blood 3.0 Base Excess Arterial Blood 96.4 Oxygen Saturati on Manuel Test ACCEPTAB Arterial Blood Right Radial Gas Puncture Site Arterial 0.7 Blood Carboxyhe moglobin Arterial Blood 0.5 Methemoglobin Blood Gas A-a 213.6 H O2 Differential Oxyhemoglobin 95.2 Percent Blood Gas 37.0 Temperature Blood Gas 18.0 Respiration Rate Blood Gas 23 Actual Respiration Rat e Blood Gas MASK - BIPAP Modality FiO2 50.0 Blood Gas 10 Pressure Support Blood Gas 11/05 IPAP/EPAP Ratio Blood Gas OHAYA C RN Critical Value Read Back Blood Gas KM Notified Whom Blood Gas 02/08/2019 5:50: Notified Time 24 AM Bedside Glucose 102 Sodium Level 153 H Potassium Level 3.9 Chloride Level 117 H Carbon Dioxide 30 Level Anion Gap 6 Blood Urea 82 H Nitrogen Creatinine 2.00 H Est Glomerular Filtrat Rate mL/min Glucose Level 93 Calcium Level 8.1 L Test 02/15/19 07:00 02/15/19 08:28 Blood Gas Blood arterial Specimen Source Arterial Blood 02/15/2019 8:30: Date Drawn 34 AM Arterial Blood 7.415 pH (Temp corrected ) Arterial Blood 62.6 H pCO2 (Temp correct) Arterial Blood 57.4 L pO2 (Temp corrected ) Arterial Blood 39.2 H HCO3 Arterial Blood 12.4 H Base Excess Arterial Blood 89.7 L Oxygen Saturati on Manuel Test ACCEPTAB Arterial Blood Right Radial Gas Puncture Site Arterial 0.3 Blood Carboxyhe moglobin Arterial Blood 0.3 Methemoglobin Blood Gas A-a 228.7 H O2 Differential Oxyhemoglobin 89.2 L Percent Blood Gas 37.0 Temperature Blood Gas HFNC Modality FiO2 50.0 Blood Gas CW Notified Whom Blood Gas 02/15/2019 8:58: Notified Time 32 AM Bedside Glucose 99 Exam/Review of Systems Exam Vitals Vital Signs Date Temp Pulse Resp B/P (MAP) Pulse Ox O2 O2 Flow FiO2 Time Delivery Rate 02/15/19 100 50 06:02 02/15/19 83 20 Nasal 06:02 Cannula 02/15/19 100/61 05:00 (74) 02/15/19 97.7 04:00 02/14/19 10.0 04:05 Intake and Output 02/14/19 02/14/19 02/15/19 1515:00 23:00 07:00 IntakeIntake Total 480 ml 340 ml 1010 ml OutputOutput Total 360 ml 360 ml 330 ml BalanceBalance 120 ml -20 ml 680 ml Results Results 24hrs Laboratory Tests Test 02/14/19 13:13 02/14/19 13:19 02/14/19 17:16 02/14/19 17:43 Lactic Acid 1.1 Level Bedside Glucose 95 67 L 146 Test 02/14/19 18:05 02/14/19 20:55 02/15/19 01:24 02/15/19 02:44 Bedside Glucose 118 82 112 Blood Gas Blood Specimen arterial Source Arterial Blood 02/15/2019 2:49 Date Drawn :00 AM Arterial Blood 7.326 L pH (Temp corrected ) Arterial Blood 58.1 H pCO2 (Temp correct) Arterial Blood 59.0 L pO2 (Temp corrected ) Arterial Blood 29.7 H HCO3 Arterial Blood 3.1 H Base Excess Arterial Blood 86.7 L Oxygen Saturati on Manuel Test ACCEPTAB Arterial Blood Right Radial Gas Puncture Site Arterial 0.6 Blood Carboxyhe moglobin Arterial Blood 0.6 Methemoglobin Blood Gas A-a 595.9 H O2 Differential Oxyhemoglobin 85.7 L Percent Blood Gas 37.0 Temperature Blood Gas 24 Actual Respiration Rat e Blood Gas ROOM AIR Modality FiO2 100.0 Blood Gas OHAYA C RN Critical Value Read Back Blood Gas KB Notified Whom Blood Gas 02/15/2019 3:00 Notified Time :00 AM Test 02/15/19 04:57 02/15/19 05:00 02/15/19 05:25 02/15/19 05:30 White Blood 7.6 Count Red Blood Count 2.23 L Hemoglobin 6.6 *L Hematocrit 22.0 L Mean 98.7 Corpuscular Volume Mean 29.6 Corpuscular Hemoglobin Mean 30.0 L Corpuscular Hemoglobin Conc ent Red Cell 21.3 H Distribution Width Platelet Count 87 L Mean Platelet 13.1 H Volume Immature 0.300 Granulocytes % Neutrophils % Segmented 74 Neutrophils % (Manual) Band 7 H Neutrophils % (Manual) Lymphocytes % Lymphocytes % 15 (Manual) Reactive 1 H Lymphocytes % (Manual) Monocytes % Monocytes % 1 (Manual) Eosinophils % Eosinophils % 2 (Manual) Basophils % Nucleated Red 0.7 H Blood Cells % Immature 0.020 Granulocytes # Neutrophils # Neutrophils # 5.7 (Manual) Band 0.5 Neutrophils # Lymphocytes 1.1 (Manual) Lymphocytes # Reactive 0.0 Lymphocytes # Monocytes # Monocytes # 0.0 L (Manual) Eosinophils # Basophils # Nucleated Red Blood Cells # Platelet DECREASED Estimate Giant Platelets 3 H Polychromasia 3+ Hypochromasia 1+ Poikilocytosis 1+ Anisocytosis 2+ Macrocytosis 2+ Target Cells 1+ Schistocytes 1+ Blood Gas Blood arterial Specimen Source Arterial Blood 02/15/2019 5:39: Date Drawn 34 AM Arterial Blood 7.396 pH (Temp corrected ) Arterial Blood 47.2 H pCO2 (Temp correct) Arterial Blood 89.8 pO2 (Temp corrected ) Arterial Blood 28.3 H HCO3 Arterial Blood 3.0 Base Excess Arterial Blood 96.4 Oxygen Saturati on Manuel Test ACCEPTAB Arterial Blood Right Radial Gas Puncture Site Arterial 0.7 Blood Carboxyhe moglobin Arterial Blood 0.5 Methemoglobin Blood Gas A-a 213.6 H O2 Differential Oxyhemoglobin 95.2 Percent Blood Gas 37.0 Temperature Blood Gas 18.0 Respiration Rate Blood Gas 23 Actual Respiration Rat e Blood Gas MASK - BIPAP Modality FiO2 50.0 Blood Gas 10 Pressure Support Blood Gas 11/05 IPAP/EPAP Ratio Blood Gas OHAYA C RN Critical Value Read Back Blood Gas KM Notified Whom Blood Gas 02/08/2019 5:50: Notified Time 24 AM Bedside Glucose 102 Sodium Level 153 H Potassium Level 3.9 Chloride Level 117 H Carbon Dioxide 30 Level Anion Gap 6 Blood Urea 82 H Nitrogen Creatinine 2.00 H Est Glomerular Filtrat Rate mL/min Glucose Level 93 Calcium Level 8.1 L Test 02/15/19 07:00 02/15/19 08:28 Blood Gas Blood arterial Specimen Source Arterial Blood 02/15/2019 8:30: Date Drawn 34 AM Arterial Blood 7.415 pH (Temp corrected ) Arterial Blood 62.6 H pCO2 (Temp correct) Arterial Blood 57.4 L pO2 (Temp corrected ) Arterial Blood 39.2 H HCO3 Arterial Blood 12.4 H Base Excess Arterial Blood 89.7 L Oxygen Saturati on Manuel Test ACCEPTAB Arterial Blood Right Radial Gas Puncture Site Arterial 0.3 Blood Carboxyhe moglobin Arterial Blood 0.3 Methemoglobin Blood Gas A-a 228.7 H O2 Differential Oxyhemoglobin 89.2 L Percent Blood Gas 37.0 Temperature Blood Gas HFNC Modality FiO2 50.0 Blood Gas CW Notified Whom Blood Gas 02/15/2019 8:58: Notified Time 32 AM Bedside Glucose 99 Medications Medication Current Medications Lactulose (Enulose) 20 gm DAILY PRN PO CONSTIPATION; Start 01/17/19 at 18:17 Acetaminophen (Tylenol Tab) 650 mg Q4H PRN PO PAIN Last administered on 02/11/19at 21:29; Admin Dose 650 MG; Start 01/17/19 at 18:17 Miscellaneous Information (Pending Santyl Order For Wound Care) This patient ramirez... PRN PRN XX WOUND CARE; Start 01/17/19 at 18:17 Albuterol/ Ipratropium (Duoneb) 3 ml Q2H RESP THERAPY PRN HHN SHORTNESS OF BREATH Last administered on 02/13/19at 05:52; Admin Dose 3 ML; Start 01/17/19 at 18:17 Bisacodyl (Dulcolax) 10 mg BID PRN PO CONSTIPATION; Start 01/17/19 at 18:17; Status Hold Folic Acid (Folic Acid) 1 mg DAILY PO Last administered on 02/14/19at 08:22; A dmin Dose 1 MG; Start 01/17/19 at 18:17 Latanoprost (Xalatan) 1 drop HS BOTH EYES Last administered on 02/14/19at 21:06; Admin Dose 1 DROP; Start 01/17/19 at 18:17 Nitroglycerin (Nitroglycerin (Sl Tab) 0.4 Mg) 0.4 tab Q5M PRN SL CHEST PAIN; Start 01/17/19 at 18:17 Nystatin (Nystatin Powder) 1 applic BID TOP Last administered on 02/14/19at 21:06; Admin Dose 1 APPLIC; Start 01/17/19 at 18:17 IV Flush (NS 3 ml) 3 ml PER PROTOCOL IV ; Start 01/17/19 at 18:17 Miscellaneous Information 1 ea NOTE XX ; Start 01/17/19 at 18:17 Glucose (Glutose) 15 gm Q15M PRN PO DECREASED GLUCOSE; Start 01/17/19 at 18:17 Glucose (Glutose) 22.5 gm Q15M PRN PO DECREASED GLUCOSE; Start 01/17/19 at 18:17 Dextrose (D50w Syringe) 25 ml Q15M PRN IV DECREASED GLUCOSE Last administered on 02/14/19at 17:23; Admin Dose 25 ML; Start 01/17/19 at 18:17 Dextrose (D50w Syringe) 50 ml Q15M PRN IV DECREASED GLUCOSE; Start 01/17/19 at 18:17 Glucagon (Glucagen) 1 mg Q15M PRN IM DECREASED GLUCOSE Last administered on 02/11/19at 17:55; Admin Dose 1 MG; Start 01/17/19 at 18:17 Glucose (Glutose) 15 gm Q15M PRN BUCCAL DECREASED GLUCOSE; Start 01/17/19 at 18:17 Ascorbic Acid (Vitamin C) 250 mg DAILY PO Last administered on 02/14/19 08:22; Admin Dose 250 MG; Start 01/17/19 at 18:17 Bisacodyl (Dulcolax Supp) 10 mg DAILY PRN NC CONSTIPATION; Start 01/17/19 at 18:17 Zinc Acetate/ Diphenhydramine (Benadryl 2% Cr) 1 applic Q6H PRN TOP ITCHING Last administered on 01/26/19at 07:54; Admin Dose 1 APPLIC; Start 01/19/19 at 16:37 IV Flush (NS 10 ml) 10 ml PRN PRN IV IV PROTOCOL; Start 01/20/19 at 14:30 Cyanocobalamin (Vitamin B12 Inj) 1,000 mcg Q7D IM Last administered on 02/10/19at 09:50; Admin Dose 1,000 MCG; Start 02/03/19 at 09:00 Metoprolol Tartrate (Lopressor) 5 mg Q4H PRN IV HR>110 Hold SBP<100; Start 01/26/19 at 14:30 Vancomycin HCl (Vanco Iv Per Pharmacy) VANCOMYCIN PER PHARMACY PER PROTOCOL XX ; Start 01/27/19 at 12:00 Enoxaparin Sodium (Lovenox) 60 mg DAILY SC Last administered on 02/03/19at 08:06; Admin Dose 60 MG; Start 01/28/19 at 09:00; Status Hold Atorvastatin Calcium (Lipitor) 40 mg QHS NGT Last administered on 02/14/19at 20:49; Admin Dose 40 MG; Start 01/28/19 at 21:00 Docusate Sodium (Colace Liquid Cup) 100 mg BID NGT ; Start 01/27/19 at 22:00; Status Hold Terazosin HCl (Hytrin) 10 mg HS NGT Last administered on 02/13/19at 21:27; Admin Dose 10 MG; Start 01/28/19 at 21:00 Levothyroxine Sodium (Synthroid) 125 mcg BEFORE BREAKFAST NGT Last administered on 02/15/19 06:25; Admin Dose 125 MCG; Start 01/28/19 at 07:00 Ferrous Sulfate (Feosol Liquid Cup) 300 mg WITH MEALS GTB Last administered on 02/14/19at 08:15; Admin Dose 300 MG; Start 01/28/19 at 11:30 Multivitamins (Multivitamin) 30 ml DAILY GTB Last administered on 02/14/19 08:22; Admin Dose 30 ML; Start 01/28/19 at 11:00 Diagnostic Test (Pha) (Accu-Chek) 1 ea Q4 XX Last administered on 02/15/19 08:38; Admin Dose 1 EA; Start 01/28/19 at 13:00 Nystatin/ Triamcinolone Acetonide (Mycolog Oint) 1 applic BID TOP Last administered on 02/14/19 21:05; Admin Dose 1 APPLIC; Start 01/28/19 at 22:30 Insulin Aspart (Novolog Insulin Pen) NOVOLOG *MILD* ALGORI... Q4 SC Last administered on 02/13/19 21:34; Admin Dose 1 UNIT; Start 01/29/19 at 05:00 Albuterol/ Ipratropium (Duoneb) 3 ml Q6HWA RESP THERAPY HHN Last administered on 02/14/19 19:32; Admin Dose 3 ML; Start 01/29/19 at 14:00 Epoetin Dae-epbx (RETACRIT(non-esrd)) 40,000 unit Mo@1700 SC Last administered on 02/10/19 18:06; Admin Dose 40,000 UNIT; Start 02/03/19 at 17:00 Insulin Glargine (Lantus) 10 units DAILY@2000 SC Last administered on 02/14/19 21:01; Admin Dose 10 UNITS; Start 01/31/19 at 20:00 Aztreonam 1 gm/ Dextrose 50 ml @ 100 mls/hr Q12 IVPB Last administered on 02/14/19 21:02; Admin Dose 100 MLS/HR; Start 02/03/19 at 21:00 Metoprolol Tartrate (Lopressor) 12.5 mg BID PO Last administered on 02/13/19 21:28; Admin Dose 12.5 MG; Start 02/05/19 at 21:00 Eye Lubricant (Refresh Plus) 1 drop QID BOTH EYES Last administered on 02/14/19 20:56; Admin Dose 1 DROP; Start 02/06/19 at 09:00 Eye Lubricant (Akwa Oint) 1 applic HS LEFT EYE Last administered on 02/14/19 21:06; Admin Dose 1 APPLIC; Start 02/06/19 at 21:00 Multi-Ingredient Ointment (Aquaphor Oint 52.5 Gm) 1 applic BID TOP Last administered on 02/14/19 21:05; Admin Dose 1 APPLIC; Start 02/06/19 at 22:40 Lansoprazole (Prevacid) 30 mg BID@0600,1800 NGT Last administered on 02/15/19 06:25; Admin Dose 30 MG; Start 02/07/19 at 18:00 Tobramycin Sulfate/Sodium Chloride (Nilesh Inhal) 300 mg BID RESP THERAPY NEB Last administered on 02/14/19 19:32; Admin Dose 300 MG; Start 02/08/19 at 09:00 Morphine Sulfate (morphine) 0.5 mg Q4H PRN IV SEVERE PAIN LEVEL 7-10 Last administered on 02/10/19 18:18; Admin Dose 0.5 MG; Start 02/08/19 at 19:00 Vancomycin HCl 750 mg/Dextrose 250 ml @ 125 mls/hr Q72H IVPB Last administered on 02/12/19 22:24; Admin Dose 125 MLS/HR; Start 02/09/19 at 23:00 Furosemide (Lasix) 20 mg BID IV Last administered on 02/14/19 21:10; Admin Dose 20 MG; Start 02/13/19 at 00:30 Norepinephrine 250 ml @ 1.875 mls/ hr TITRATE IV ; Start 02/14/19 at 03:00 Albumin Human 50 ml @ 100 mls/hr Q8H IV Last administered on 02/15/19 01:21; Admin Dose 100 MLS/HR; Start 02/14/19 at 16:30; Stop 02/15/19 at 08:59 Miscellaneous Information (*Rx Drug Level Order Reminder*) VANCO TR LEVEL PRIOR... ONCE ONCE XX ; Start 02/15/19 at 22:00; Stop 02/15/19 at 22:01 Dextrose 1,000 ml @ 40 mls/hr Q24H IV Last administered on 02/14/19 21:02; Admin Dose 40 MLS/HR; Start 02/14/19 at 19:00 COOPER CARO February 15, 2019 08:59
[2019-02-15] MEDS: FUROSEMIDE 20 MG INJ IV SCH (09:00)
[2019-02-15] MEDS: NYSTATIN 30 GM POWDER BTL TOP SCH (09:00)
[2019-02-15] MEDS: AQUAPHOR 52.5 GM OINT TOP SCH ×2 (09:01→21:00)
[2019-02-15] MEDS: NYSTATIN/TRIAMCINOLONE 15 GM OINT TOP SCH ×2 (09:01→21:00)
[2019-02-15] MEDS: BALSAM PERU/CASTOR OIL 60 GM TUBE TOP SCH ×2 (09:01→21:00)
[2019-02-15] MEDS: ALBUTEROL/IPRATROPIUM (NEB) 3 ML AMP HHN SCH ×3 (09:12→19:42)
[2019-02-15] MEDS: TOBRAMYCIN/0.25NS 300 MG/5 ML INHAL NEB SCH ×2 (09:15→19:43)
--- NOTE | 2019-02-15 09:35 | CONS ---
Assessment/Plan Assessment/Plan Hospital Course 88 yo M with multiple comorbidities who initially presented for evaluation of hiccups. He was noted to become acutely altered... for which neurology is consulted. He has been transferred to the ICU on several occasions due to ams in the context of respiratory distress and ? seizures.. On 02/14, he was transferred to the ICU for hypotension. The clinical picture suggests an acute toxic-metabolic encephalopathy.. Meningoencephalitis is, though, not entirely excluded. MRI brain is without acute ischemia, though notable for chronic infarcts. EEG was without ongoing epileptiform activity LP for CSF valuation was declined by medical decision makers. P: OK to Cont Keppra 500 BID for now Ativan IV PRN prolonged seizure (> 5 min) Agree w/ ASA/Lipitor daily pending the above Limit sedating medications where possible Other medical management per primary Will follow clinically Consultation Date/Type/Reason Admit Date/Time Jan 17, 2019 at 15:58 Type of Consult Neurology Reason for Consultation ams; eval for stroke Requesting Provider: IVAN AKHTAR MD Date/Time of Note DATE: 02/15/19 TIME: 09:35 24 HR Interval Summary Free Text/Dictation Continues critical care. Exam Vital Signs Vitals Vital Signs Date Temp Pulse Resp B/P (MAP) Pulse Ox O2 O2 Flow FiO2 Time Delivery Rate 02/15/19 99 50 09:18 02/15/19 78 35 09:10 02/15/19 Nasal 06:02 Cannula 02/15/19 100/61 05:00 (74) 02/15/19 97.7 04:00 02/14/19 10.0 04:05 Intake and Output 02/14/19 02/14/19 02/15/19 1515:00 23:00 07:00 IntakeIntake Total 480 ml 340 ml 1010 ml OutputOutput Total 360 ml 360 ml 330 ml BalanceBalance 120 ml -20 ml 680 ml Exam PE: Gen Appearance: No Apparent Distress HEENT: Normocephalic Cardiovascular: Regular rate Abdomen: Soft Extremities: Dry, skin peeling NE: The patient was awake and alert. Sparsely verbal. Able to track. Follows simple appendicular commands. Cranial nerve examination was limited by mental status. Pupils were equal and reactive to light. There was no afferent pupillary defect. Funduscopic examination was limited. Face was grossly symmetric. Tone was normal. Muscle bulk was normal. I did not see fasciculations. The patient was generally very weak, LE>UE Coordination and gait testing was limited by mental status. Arm and leg reflexes were within normal limits and symmetric. Gray's sign was absent. Plantar responses were flexor. NEGRA CORONA NP February 15, 2019 09:35
--- NOTE | 2019-02-15 09:58 | CONS ---
Consultation Date/Type/Reason Admit Date/Time Jan 17, 2019 at 15:58 Initial Consult Date 01/18/19 Type of Consult GI Requesting Provider: IVAN AKHTAR MD Date/Time of Note DATE: 02/15/19 TIME: 09:56 24 HR Interval Summary Free Text/Dictation Impression: 1. Severe anemia likely due to chronic disease, last work up while admitted to [facility] about a week ago was neg for GI bleeding, including EGD/colon which was done -s/p EGD and colonoscopy by Dr Frost 01/09/19 which didn't find an obvious GI etiology to explain anemia. AVM or a small lesion could be missed due to poor prep. Pt likely needs capsule endoscopy -Neg fob, elevate retic, Low iron, tibc, [place] sat, [place] [id number] 2. Cystic lesion along pancreas body - 4.3 cm cystic lesion along the pancreas body, enlarged since 10/10/2012 (previously 2.4 cm). 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 -CEA wnl 3. Severe gastritis 4. Hemorrhoids 5. Hital hernia 6. A fib, -eliquis was stopped 01/06 during previous admission, on ASA 7. COPD 8. HTN 9. Hypothyroidism 10. Bilateral groin cellulitis 11. Rheumatoid arthritis. 12. Diabetes mellitus. 13. Peripheral vascular disease. 14. CHF 15. 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 Sepsis secondary to pneumonia 18. Encephalopathy secondary to sepsis 19. Hypothermia 20. Coagulopathy -INR 1.77 21. Positive wound culture -CORYNEBACTERIUM SPECIES 22 extensive rash all over the body including the face 23 respiratory failure Plan: Family has consented to PEG but pt is not stable Patient is volume overload and is on 40 % O2. Once his condition is stable will proceed with placement of G-tube Continue present care Exam/Review of Systems Exam Vitals Vital Signs Date Temp Pulse Resp B/P (MAP) Pulse Ox O2 O2 Flow FiO2 Time Delivery Rate 02/15/19 99 50 09:18 02/15/19 78 35 09:10 02/15/19 Nasal 06:02 Cannula 02/15/19 100/61 05:00 (74) 02/15/19 97.7 04:00 02/14/19 10.0 04:05 Intake and Output 02/14/19 02/14/1919 1515:00 23:00 07:00 IntakeIntake Total 480 ml 340 ml 1010 ml OutputOutput Total 360 ml 360 ml 330 ml BalanceBalance 120 ml -20 ml 680 ml Results Result Diagram: 02/15/19 0457 02/15/19 0530 Results 24hrs Laboratory Tests Test 02/14/19 13:13 02/14/19 13:19 02/14/19 17:16 02/14/19 17:43 Lactic Acid 1.1 Level Bedside Glucose 95 67 L 146 Test 02/14/19 18:05 02/14/19 20:55 02/15/19 01:24 02/15/19 02:44 Bedside Glucose 118 82 112 Blood Gas Blood Specimen arterial Source Arterial Blood 02/15/2019 2:49 Date Drawn :00 AM Arterial Blood 7.326 L pH (Temp corrected ) Arterial Blood 58.1 H pCO2 (Temp correct) Arterial Blood 59.0 L pO2 (Temp corrected ) Arterial Blood 29.7 H HCO3 Arterial Blood 3.1 H Base Excess Arterial Blood 86.7 L Oxygen Saturati on Manuel Test ACCEPTAB Arterial Blood Right Radial Gas Puncture Site Arterial 0.6 Blood Carboxyhe moglobin Arterial Blood 0.6 Methemoglobin Blood Gas A-a 595.9 H O2 Differential Oxyhemoglobin 85.7 L Percent Blood Gas 37.0 Temperature Blood Gas 24 Actual Respiration Rat e Blood Gas ROOM AIR Modality FiO2 100.0 Blood Gas OHAYA C RN Critical Value Read Back Blood Gas KB Notified Whom Blood Gas 02/15/2019 3:00 Notified Time :00 AM Test 02/15/19 04:57 02/15/19 05:00 02/15/19 05:25 02/15/19 05:30 White Blood 7.6 Count Red Blood Count 2.23 L Hemoglobin 6.6 *L Hematocrit 22.0 L Mean 98.7 Corpuscular Volume Mean 29.6 Corpuscular Hemoglobin Mean 30.0 L Corpuscular Hemoglobin Conc ent Red Cell 21.3 H Distribution Width Platelet Count 87 L Mean Platelet 13.1 H Volume Immature 0.300 Granulocytes % Neutrophils % Segmented 74 Neutrophils % (Manual) Band 7 H Neutrophils % (Manual) Lymphocytes % Lymphocytes % 15 (Manual) Reactive 1 H Lymphocytes % (Manual) Monocytes % Monocytes % 1 (Manual) Eosinophils % Eosinophils % 2 (Manual) Basophils % Nucleated Red 0.7 H Blood Cells % Immature 0.020 Granulocytes # Neutrophils # Neutrophils # 5.7 (Manual) Band 0.5 Neutrophils # Lymphocytes 1.1 (Manual) Lymphocytes # Reactive 0.0 Lymphocytes # Monocytes # Monocytes # 0.0 L (Manual) Eosinophils # Basophils # Nucleated Red Blood Cells # Platelet DECREASED Estimate Giant Platelets 3 H Polychromasia 3+ Hypochromasia 1+ Poikilocytosis 1+ Anisocytosis 2+ Macrocytosis 2+ Target Cells 1+ Schistocytes 1+ Blood Gas Blood arterial Specimen Source Arterial Blood 02/15/2019 5:39: Date Drawn 34 AM Arterial Blood 7.396 pH (Temp corrected ) Arterial Blood 47.2 H pCO2 (Temp correct) Arterial Blood 89.8 pO2 (Temp corrected ) Arterial Blood 28.3 H HCO3 Arterial Blood 3.0 Base Excess Arterial Blood 96.4 Oxygen Saturati on Manuel Test ACCEPTAB Arterial Blood Right Radial Gas Puncture Site Arterial 0.7 Blood Carboxyhe moglobin Arterial Blood 0.5 Methemoglobin Blood Gas A-a 213.6 H O2 Differential Oxyhemoglobin 95.2 Percent Blood Gas 37.0 Temperature Blood Gas 18.0 Respiration Rate Blood Gas 23 Actual Respiration Rat e Blood Gas MASK - BIPAP Modality FiO2 50.0 Blood Gas 10 Pressure Support Blood Gas 18/8 IPAP/EPAP Ratio Blood Gas OHAYA C RN Critical Value Read Back Blood Gas Notified Whom Blood Gas 02/08/2019 5:50: Notified Time 24 AM Bedside Glucose 102 Sodium Level 153 H Potassium Level 3.9 Chloride Level 117 H Carbon Dioxide 30 Level Anion Gap 6 Blood Urea 82 H Nitrogen Creatinine 2.00 H Est Glomerular Filtrat Rate mL/min Glucose Level 93 Calcium Level 8.1 L Test 02/15/19 07:00 02/15/19 08:28 Blood Gas Blood arterial Specimen Source Arterial Blood 02/15/2019 8:30: Date Drawn 34 AM Arterial Blood 7.415 pH (Temp corrected ) Arterial Blood 62.6 H pCO2 (Temp correct) Arterial Blood 57.4 L pO2 (Temp corrected ) Arterial Blood 39.2 H HCO3 Arterial Blood 12.4 H Base Excess Arterial Blood 89.7 L Oxygen Saturati on Manuel Test ACCEPTAB Arterial Blood Right Radial Gas Puncture Site Arterial 0.3 Blood Carboxyhe moglobin Arterial Blood 0.3 Methemoglobin Blood Gas A-a 228.7 H O2 Differential Oxyhemoglobin 89.2 L Percent Blood Gas 37.0 Temperature Blood Gas HFNC Modality FiO2 50.0 Blood Gas CW Notified Whom Blood Gas 02/15/2019 8:58: Notified Time 32 AM Bedside Glucose 99 Medications Medication Current Medications Lactulose (Enulose) 20 gm DAILY PRN PO CONSTIPATION; Start 01/17/19 at 18:17 Acetaminophen (Tylenol Tab) 650 mg Q4H PRN PO PAIN Last administered on 02/11/19at 21:29; Admin Dose 650 MG; Start 01/17/19 at 18:17 Miscellaneous Information ([facility] This patient ramirez... PRN PRN XX WOUND CARE; Start 01/17/19 at 18:17 Albuterol/ Ipratropium (Duoneb) 3 ml Q2H RESP THERAPY PRN HHN SHORTNESS OF BREATH Last administered on 02/13/19at 05:52; Admin Dose 3 ML; Start 01/17/19 at 18:17 Bisacodyl (Dulcolax) 10 mg BID PRN PO CONSTIPATION; Start 01/17/19 at 18:17; Status Hold Folic Acid (Folic Acid) 1 mg DAILY PO Last administered on 02/15/19at 08:59; Admin Dose 1 MG; Start 01/17/19 at 18:17 Latanoprost (Xalatan) 1 drop HS BOTH EYES Last administered on 02/14/19at 21:06; Admin Dose 1 DROP; Start 01/17/19 at 18:17 Nitroglycerin (Nitroglycerin (Sl Tab) 0.4 Mg) 0.4 tab Q5M PRN SL CHEST PAIN; Start 01/17/19 at 18:17 Nystatin (Nystatin Powder) 1 applic BID TOP Last administered on 02/15/19at 09:00; Admin Dose 1 APPLIC; Start 01/17/19 at 18:17 IV Flush (NS 3 ml) 3 ml PER PROTOCOL IV ; Start 01/17/19 at 18:17 Miscellaneous Information 1 ea NOTE XX ; Start 01/17/19 at 18:17 Glucose (Glutose) 15 gm Q15M PRN PO DECREASED GLUCOSE; Start 01/17/19 at 18:17 Glucose (Glutose) 22.5 gm Q15M PRN PO DECREASED GLUCOSE; Start 01/17/19 at 18:17 Dextrose (D50w Syringe) 25 ml Q15M PRN IV DECREASED GLUCOSE Last administered on 02/14/19at 17:23; Admin Dose 25 ML; Start 01/17/19 at 18:17 Dextrose (D50w Syringe) 50 ml Q15M PRN IV DECREASED GLUCOSE; Start 01/17/19 at 18:17 Glucagon (Glucagen) 1 mg Q15M PRN IM DECREASED GLUCOSE Last administered on 01/23 10/12at 17:55; Admin Dose 1 MG; Start 01/17/19 at 18:17 Glucose (Glutose) 15 gm Q15M PRN BUCCAL DECREASED GLUCOSE; Start 01/17/19 at 18:17 Ascorbic Acid (Vitamin C) 250 mg DAILY PO Last administered on 02/15/19at 08:57; Admin Dose 250 MG; Start 01/17/19 at 18:17 Bisacodyl (Dulcolax Supp) 10 mg DAILY PRN DE CONSTIPATION; Start 01/17/19 at 18:17 Zinc Acetate/ Diphenhydramine (Benadryl 2% Cr) 1 applic Q6H PRN TOP ITCHING Last administered on 01/26/19at 07:54; Admin Dose 1 APPLIC; Start 01/19/19 at 16:37 IV Flush (NS 10 ml) 10 ml PRN PRN IV IV PROTOCOL; Start 01/20/19 at 14:30 Cyanocobalamin (Vitamin B12 Inj) 1,000 mcg Q7D IM Last administered on 02/10/19at 09:50; Admin Dose 1,000 MCG; Start 02/03/19 at 09:00 Metoprolol Tartrate (Lopressor) 5 mg Q4H PRN IV HR>110 Hold SBP<100; Start 01/26/19 at 14:30 Vancomycin HCl (Vanco Iv Per Pharmacy) VANCOMYCIN PER PHARMACY PER PROTOCOL XX ; Start 01/27/19 at 12:00 Enoxaparin Sodium (Lovenox) 60 mg DAILY SC Last administered on 02/03/19at 08:06; Admin Dose 60 MG; Start 01/28/19 at 09:00; Status Hold Atorvastatin Calcium (Lipitor) 40 mg QHS NGT Last administered on 02/14/19at 20:49; Admin Dose 40 MG; Start 01/28/19 at 21:00 Docusate Sodium (Colace Liquid Cup) 100 mg BID NGT ; Start 01/27/19 at 22:00; Status Hold Terazosin HCl (Hytrin) 10 mg HS NGT Last administered on 02/13/19 21:27; Admin Dose 10 MG; Start 01/28/19 at 21:00 Levothyroxine Sodium (Synthroid) 125 mcg BEFORE BREAKFAST NGT Last administered on 02/15/19 06:25; Admin Dose 125 MCG; Start 01/28/19 at 07:00 Ferrous Sulfate (Feosol Liquid Cup) 300 mg WITH MEALS GTB Last administered on 02/15/19 08:57; Admin Dose 300 MG; Start 01/28/19 at 11:30 Multivitamins (Multivitamin) 30 ml DAILY GTB Last administered on 02/15/19 08:58; Admin Dose 30 ML; Start 01/28/19 at 11:00 Diagnostic Test (Pha) (Accu-Chek) 1 ea Q4 XX Last administered on 02/15/19 08:38; Admin Dose 1 EA; Start 01/28/19 at 13:00 Nystatin/ Triamcinolone Acetonide (Mycolog Oint) 1 applic BID TOP Last administered on 02/15/19 09:01; Admin Dose 1 APPLIC; Start 01/28/19 at 22:30 Insulin Aspart (Novolog Insulin Pen) NOVOLOG *MILD* ALGORI... Q4 SC Last administered on 02/13/19 21:34; Admin Dose 1 UNIT; Start 01/29/19 at 05:00 Albuterol/ Ipratropium (Duoneb) 3 ml Q6HWA RESP THERAPY HHN Last administered on 02/15/19 09:12; Admin Dose 3 ML; Start 01/29/19 at 14:00 Epoetin Dae-epbx (RETACRIT(non-esrd)) 40,000 unit Mo@1700 SC Last administered on 02/10/19 18:06; Admin Dose 40,000 UNIT; Start 02/03/19 at 17:00 Insulin Glargine (Lantus) 10 units DAILY@2000 SC Last administered on 02/14/19 21:01; Admin Dose 10 UNITS; Start 01/31/19 at 20:00 Aztreonam 1 gm/ Dextrose 50 ml @ 100 mls/hr Q12 IVPB Last administered on 02/15/19 08:57; Admin Dose 100 MLS/HR; Start 02/03/19 at 21:00 Metoprolol Tartrate (Lopressor) 12.5 mg BID PO Last administered on 02/13/19 21:28; Admin Dose 12.5 MG; Start 02/05/19 at 21:00 Eye Lubricant (Refresh Plus) 1 drop QID BOTH EYES Last administered on 02/15/19 08:57; Admin Dose 1 DROP; Start 02/06/19 at 09:00 Eye Lubricant (Akwa Oint) 1 applic HS LEFT EYE Last administered on 02/14/19 21:06; Admin Dose 1 APPLIC; Start 02/06/19 at 21:00 Multi-Ingredient Ointment (Aquaphor Oint 52.5 Gm) 1 applic BID TOP Last administered on 02/15/19 09:01; Admin Dose 1 APPLIC; Start 02/06/19 at 22:40 Lansoprazole (Prevacid) 30 mg BID@0600,1800 NGT Last administered on 02/15/19 06:25; Admin Dose 30 MG; Start 02/07/19 at 18:00 Tobramycin Sulfate/Sodium Chloride (Nilesh Inhal) 300 mg BID RESP THERAPY NEB Last administered on 02/15/19 09:15; Admin Dose 300 MG; Start 02/08/19 at 09:00 Vancomycin HCl 750 mg/Dextrose 250 ml @ 125 mls/hr Q72H IVPB Last administered on 02/12/19 22:24; Admin Dose 125 MLS/HR; Start 02/09/19 at 23:00 Furosemide (Lasix) 20 mg BID IV Last administered on 02/14/19 21:10; Admin Dose 20 MG; Start 02/13/19 at 00:30 Norepinephrine 250 ml @ 1.875 mls/ hr TITRATE IV ; Start 02/14/19 at 03:00 Miscellaneous Information (*Rx Drug Level Order Reminder*) VANCO TR LEVEL PRIOR... ONCE ONCE XX ; Start 02/15/19 at 22:00; Stop 02/15/19 at 22:01 Dextrose 1,000 ml @ 40 mls/hr Q24H IV Last administered on 02/14/19 21:02; Admin Dose 40 MLS/HR; Start 02/14/19 at 19:00 Morphine Sulfate (morphine) 0.25 mg Q4H PRN IV SEVERE PAIN LEVEL 7-10; Start 02/15/19 at 11:00; Status UNV GEETA CRUZ MD February 15, 2019 09:58
--- NOTE | 2019-02-15 10:35 | PN ---
Date/Time of Note Date/Time of Note DATE: 02/15/19 TIME: 10:34 Assessment/Plan VTE Prophylaxis Risk [place]from [facility] [place]0 risk: 11 SCD applied (from [facility] [place] No SCD contraindicated: bilateral LE trauma Pharmacological prophylaxis: NA/contraindicated Pharm contraindication: anticoag not tolerated Lines/Catheters IV Catheter Type (from [facility] Central Line Central line still needed: Yes Urinary Cath still in place: Yes Reason Cath still needed: urinary retention Assessment/Plan Hospital Course 1. Sepsis, Lactic acid is elevated. Pt is hypotensive, low core temperature. Urine is cloudy, pos for UTI. 2. Severe anemia 3. Chronic renal failure likely secondary to sepsis, worsen now 4. Hypertension. 5. Hyperlipidemia. 6. Hypothyroidism. 7. Normocytic normochromic chronic anemia with recent hemoglobin drop. 8. Bilateral groin cellulitis more likely associated with mateus, patches in groin and axilla bilaterally. skin peeling 9. History of rheumatoid arthritis with joint deformities. 10. Diabetes type 2. 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 Peripheral vascular disease. 13. Chronic a.fib 14. right arm edema, better 15. Neoplasm per CT abdomen. 4.3 cm cystic lesion along the pancreas body, enlarged since 10/10/2012 (previously 2.4 cm). 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 16. Possible allergic skin reaction, biopsy is obtained 17. altered mental status delirium vs stroke, 18. Hypernatremia 153 from 152 19. Eye muscle paralysis. Assessment/Plan -c/w ICU care c/w restraints GT with falshes -transfuse 1 unit -DNR status -poor prognosis -pending respiratory failure, increase vapotherm settings -dr De Leon on case, pt is on Vapoterm 50% -Dr Robertson, cardiology -Afib controlled -skin care -c/w rinaldi -sample UA pos for UTI -hold BP meds -Levophed on standing, still off -albumin to support -Dr Gao on case, pt need comfort measures -creatinine rising ID VAnco, tobra, Azetreonam Result Diagram: 02/15/19 9298 02/15/19 0530 Results 24hrs Laboratory Tests Test 02/14/19 13:13 02/14/19 13:19 02/14/19 17:16 02/14/19 17:43 Lactic Acid 1.1 Level Bedside Glucose 95 67 L 146 Test 02/14/19 18:05 02/14/19 20:55 02/15/19 01:24 02/15/19 02:44 Bedside Glucose 118 82 112 Blood Gas Blood Specimen arterial Source Arterial Blood 02/15/2019 2:49 Date Drawn :00 AM Arterial Blood 7.326 L pH (Temp corrected ) Arterial Blood 58.1 H pCO2 (Temp correct) Arterial Blood 59.0 L pO2 (Temp corrected ) Arterial Blood 29.7 H HCO3 Arterial Blood 3.1 H Base Excess Arterial Blood 86.7 L Oxygen Saturati on Manuel Test ACCEPTAB Arterial Blood Right Radial Gas Puncture Site Arterial 0.6 Blood Carboxyhe moglobin Arterial Blood 0.6 Methemoglobin Blood Gas A-a 595.9 H O2 Differential Oxyhemoglobin 85.7 L Percent Blood Gas 37.0 Temperature Blood Gas 24 Actual Respiration Rat e Blood Gas ROOM AIR Modality FiO2 100.0 Blood Gas OHAYA C RN Critical Value Read Back Blood Gas KB Notified Whom Blood Gas 02/15/2019 3:00 Notified Time :00 AM Test 02/15/19 04:57 02/15/19 05:00 02/15/19 05:25 02/15/19 05:30 White Blood 7.6 Count Red Blood Count 2.23 L Hemoglobin 6.6 *L Hematocrit 22.0 L Mean 98.7 Corpuscular Volume Mean 29.6 Corpuscular Hemoglobin Mean 30.0 L Corpuscular Hemoglobin Conc ent Red Cell 21.3 H Distribution Width Platelet Count 87 L Mean Platelet 13.1 H Volume Immature 0.300 Granulocytes % Neutrophils % Segmented 74 Neutrophils % (Manual) Band 7 H Neutrophils % (Manual) Lymphocytes % Lymphocytes % 15 (Manual) Reactive 1 H Lymphocytes % (Manual) Monocytes % Monocytes % 1 (Manual) Eosinophils % Eosinophils % 2 (Manual) Basophils % Nucleated Red 0.7 H Blood Cells % Immature 0.020 Granulocytes # Neutrophils # Neutrophils # 5.7 (Manual) Band 0.5 Neutrophils # Lymphocytes 1.1 (Manual) Lymphocytes # Reactive 0.0 Lymphocytes # Monocytes # Monocytes # 0.0 L (Manual) Eosinophils # Basophils # Nucleated Red Blood Cells # Platelet DECREASED Estimate Giant Platelets 3 H Polychromasia 3+ Hypochromasia 1+ Poikilocytosis 1+ Anisocytosis 2+ Macrocytosis 2+ Target Cells 1+ Schistocytes 1+ Blood Gas Blood arterial Specimen Source Arterial Blood 02/15/2019 5:39: Date Drawn 34 AM Arterial Blood 7.396 pH (Temp corrected ) Arterial Blood 47.2 H pCO2 (Temp correct) Arterial Blood 89.8 pO2 (Temp corrected ) Arterial Blood 28.3 H HCO3 Arterial Blood 3.0 Base Excess Arterial Blood 96.4 Oxygen Saturati on Manuel Test ACCEPTAB Arterial Blood Right Radial Gas Puncture Site Arterial 0.7 Blood Carboxyhe moglobin Arterial Blood 0.5 Methemoglobin Blood Gas A-a 213.6 H O2 Differential Oxyhemoglobin 95.2 Percent Blood Gas 37.0 Temperature Blood Gas 18.0 Respiration Rate Blood Gas 23 Actual Respiration Rat e Blood Gas MASK - BIPAP Modality FiO2 50.0 Blood Gas 10 Pressure Support Blood Gas 18/8 IPAP/EPAP Ratio Blood Gas OHAYA C RN Critical Value Read Back Blood Gas KM Notified Whom Blood Gas 02/08/2019 5:50: Notified Time 24 AM Bedside Glucose 102 Sodium Level 153 H Potassium Level 3.9 Chloride Level 117 H Carbon Dioxide 30 Level Anion Gap 6 Blood Urea 82 H Nitrogen Creatinine 2.00 H Est Glomerular Filtrat Rate mL/min Glucose Level 93 Calcium Level 8.1 L Test 02/15/19 07:00 02/15/19 08:28 Blood Gas Blood arterial Specimen Source Arterial Blood 02/15/2019 8:30: Date Drawn 34 AM Arterial Blood 7.415 pH (Temp corrected ) Arterial Blood 62.6 H pCO2 (Temp correct) Arterial Blood 57.4 L pO2 (Temp corrected ) Arterial Blood 39.2 H HCO3 Arterial Blood 12.4 H Base Excess Arterial Blood 89.7 L Oxygen Saturati on Manuel Test ACCEPTAB Arterial Blood Right Radial Gas Puncture Site Arterial 0.3 Blood Carboxyhe moglobin Arterial Blood 0.3 Methemoglobin Blood Gas A-a 228.7 H O2 Differential Oxyhemoglobin 89.2 L Percent Blood Gas 37.0 Temperature Blood Gas HFNC Modality FiO2 50.0 Blood Gas CW Notified Whom Blood Gas 02/15/2019 8:58: Notified Time 32 AM Bedside Glucose 99 Subjective 24 Hr Interval Summary Constitutional: disoriented Exam/Review of Systems Exam Vitals Vital Signs Date Temp Pulse Resp B/P (MAP) Pulse Ox O2 O2 Flow FiO2 Time Delivery Rate 02/15/19 99 50 09:18 02/15/19 78 35 09:10 02/15/19 Nasal 06:02 Cannula 02/15/19 100/61 05:00 (74) 02/15/19 97.7 04:00 02/14/19 10.0 04:05 Intake and Output 02/14/19 02/14/19 02/15/19 1515:00 23:00 07:00 IntakeIntake Total 480 ml 340 ml 1010 ml OutputOutput Total 360 ml 360 ml 330 ml BalanceBalance 120 ml -20 ml 680 ml Constitutional: alert, distress, frail Eyes: other (eye paralysis) Respiratory: crackles/rales, diminished breath sounds Cardiovascular: regular rate and rhythm Gastrointestinal: soft Musculoskeletal: joint tenderness, muscle weakness Skin: other (peeling) Results Results 24hrs Laboratory Tests Test 02/14/19 13:13 02/14/19 13:19 02/14/19 17:16 02/14/19 17:43 Lactic Acid 1.1 Level Bedside Glucose 95 67 L 146 Test 02/14/19 18:05 02/14/19 20:55 02/15/19 01:24 02/15/19 02:44 Bedside Glucose 118 82 112 Blood Gas Blood Specimen arterial Source Arterial Blood 02/15/2019 2:49 Date Drawn :00 AM Arterial Blood 7.326 L pH (Temp corrected ) Arterial Blood 58.1 H pCO2 (Temp correct) Arterial Blood 59.0 L pO2 (Temp corrected ) Arterial Blood 29.7 H HCO3 Arterial Blood 3.1 H Base Excess Arterial Blood 86.7 L Oxygen Saturati on Manuel Test ACCEPTAB Arterial Blood Right Radial Gas Puncture Site Arterial 0.6 Blood Carboxyhe moglobin Arterial Blood 0.6 Methemoglobin Blood Gas A-a 595.9 H O2 Differential Oxyhemoglobin 85.7 L Percent Blood Gas 37.0 Temperature Blood Gas 24 Actual Respiration Rat e Blood Gas ROOM AIR Modality FiO2 100.0 Blood Gas OHAYA C RN Critical Value Read Back Blood Gas KB Notified Whom Blood Gas 02/15/2019 3:00 Notified Time :00 AM Test 02/15/19 04:57 02/15/19 05:00 02/15/19 05:25 02/15/19 05:30 White Blood 7.6 Count Red Blood Count 2.23 L Hemoglobin 6.6 *L Hematocrit 22.0 L Mean 98.7 Corpuscular Volume Mean 29.6 Corpuscular Hemoglobin Mean 30.0 L Corpuscular Hemoglobin Conc ent Red Cell 21.3 H Distribution Width Platelet Count 87 L Mean Platelet 13.1 H Volume Immature 0.300 Granulocytes % Neutrophils % Segmented 74 Neutrophils % (Manual) Band 7 H Neutrophils % (Manual) Lymphocytes % Lymphocytes % 15 (Manual) Reactive 1 H Lymphocytes % (Manual) Monocytes % Monocytes % 1 (Manual) Eosinophils % Eosinophils % 2 (Manual) Basophils % Nucleated Red 0.7 H Blood Cells % Immature 0.020 Granulocytes # Neutrophils # Neutrophils # 5.7 (Manual) Band 0.5 Neutrophils # Lymphocytes 1.1 (Manual) Lymphocytes # Reactive 0.0 Lymphocytes # Monocytes # Monocytes # 0.0 L (Manual) Eosinophils # Basophils # Nucleated Red Blood Cells # Platelet DECREASED Estimate Giant Platelets 3 H Polychromasia 3+ Hypochromasia 1+ Poikilocytosis 1+ Anisocytosis 2+ Macrocytosis 2+ Target Cells 1+ Schistocytes 1+ Blood Gas Blood arterial Specimen Source Arterial Blood 02/15/2019 5:39: Date Drawn 34 AM Arterial Blood 7.396 pH (Temp corrected ) Arterial Blood 47.2 H pCO2 (Temp correct) Arterial Blood 89.8 pO2 (Temp corrected ) Arterial Blood 28.3 H HCO3 Arterial Blood 3.0 Base Excess Arterial Blood 96.4 Oxygen Saturati on Manuel Test ACCEPTAB Arterial Blood Right Radial Gas Puncture Site Arterial 0.7 Blood Carboxyhe moglobin Arterial Blood 0.5 Methemoglobin Blood Gas A-a 213.6 H O2 Differential Oxyhemoglobin 95.2 Percent Blood Gas 37.0 Temperature Blood Gas 18.0 Respiration Rate Blood Gas 23 Actual Respiration Rat e Blood Gas MASK - BIPAP Modality FiO2 50.0 Blood Gas 10 Pressure Support Blood Gas 18/8 IPAP/EPAP Ratio Blood Gas OHAYA C RN Critical Value Read Back Blood Gas KM Notified Whom Blood Gas 02/08/2019 5:50: Notified Time 24 AM Bedside Glucose 102 Sodium Level 153 H Potassium Level 3.9 Chloride Level 117 H Carbon Dioxide 30 Level Anion Gap 6 Blood Urea 82 H Nitrogen Creatinine 2.00 H Est Glomerular Filtrat Rate mL/min Glucose Level 93 Calcium Level 8.1 L Test 02/15/19 07:00 02/15/19 08:28 Blood Gas Blood arterial Specimen Source Arterial Blood 02/15/2019 8:30: Date Drawn 34 AM Arterial Blood 7.415 pH (Temp corrected ) Arterial Blood 62.6 H pCO2 (Temp correct) Arterial Blood 57.4 L pO2 (Temp corrected ) Arterial Blood 39.2 H HCO3 Arterial Blood 12.4 H Base Excess Arterial Blood 89.7 L Oxygen Saturati on Manuel Test ACCEPTAB Arterial Blood Right Radial Gas Puncture Site Arterial 0.3 Blood Carboxyhe moglobin Arterial Blood 0.3 Methemoglobin Blood Gas A-a 228.7 H O2 Differential Oxyhemoglobin 89.2 L Percent Blood Gas 37.0 Temperature Blood Gas HFNC Modality FiO2 50.0 Blood Gas CW Notified Whom Blood Gas 02/15/2019 8:58: Notified Time 32 AM Bedside Glucose 99 Medications Medication Current Medications Lactulose (Enulose) 20 gm DAILY PRN PO CONSTIPATION; Start 01/17/19 at 18:17 Acetaminophen (Tylenol Tab) 650 mg Q4H PRN PO PAIN Last administered on 02/11/19 21:29; Admin Dose 650 MG; Start 01/17/19 at 18:17 [facility]iscellaneous Information [facility] This patient ramirez... PRN PRN XX WOUND CARE; Start 01/17/19 at 18:17 Albuterol/ Ipratropium (Duoneb) 3 ml Q2H RESP THERAPY PRN HHN SHORTNESS OF BREATH Last administered on 02/13/19 05:52; Admin Dose 3 ML; Start 01/17/19 at 18:17 Bisacodyl (Dulcolax) 10 mg BID PRN PO CONSTIPATION; Start 01/17/19 at 18:17; Status Hold Folic Acid (Folic Acid) 1 mg DAILY PO Last administered on 02/15/19 08:59; Admin Dose 1 MG; Start 01/17/19 at 18:17 Latanoprost (Xalatan) 1 drop HS BOTH EYES Last administered on 02/14/19 21:06; Admin Dose 1 DROP; Start 01/17/19 at 18:17 Nitroglycerin (Nitroglycerin (Sl Tab) 0.4 Mg) 0.4 tab Q5M PRN SL CHEST PAIN; Start 01/17/19 at 18:17 Nystatin (Nystatin Powder) 1 applic BID TOP Last administered on 02/15/19 09: 00; Admin Dose 1 APPLIC; Start 01/17/19 at 18:17 IV Flush (NS 3 ml) 3 ml PER PROTOCOL IV ; Start 01/17/19 at 18:17 Miscellaneous Information 1 ea NOTE XX ; Start 01/17/19 at 18:17 Glucose (Glutose) 15 gm Q15M PRN PO DECREASED GLUCOSE; Start 01/17/19 at 18:17 Glucose (Glutose) 22.5 gm Q15M PRN PO DECREASED GLUCOSE; Start 01/17/19 at 18:17 Dextrose (D50w Syringe) 25 ml Q15M PRN IV DECREASED GLUCOSE Last administered on 02/14/19at 17:23; Admin Dose 25 ML; Start 01/17/19 at 18:17 Dextrose (D50w Syringe) 50 ml Q15M PRN IV DECREASED GLUCOSE; Start 01/17/19 at 18:17 Glucagon (Glucagen) 1 mg Q15M PRN IM DECREASED GLUCOSE Last administered on 02/11/19at 17:55; Admin Dose 1 MG; Start 01/17/19 at 18:17 Glucose (Glutose) 15 gm Q15M PRN BUCCAL DECREASED GLUCOSE; Start 01/17/19 at 18:17 Ascorbic Acid (Vitamin C) 250 mg DAILY PO Last administered on 02/15/19at 08:57; Admin Dose 250 MG; Start 01/17/19 at 18:17 Bisacodyl (Dulcolax Supp) 10 mg DAILY PRN AL CONSTIPATION; Start 01/17/19 at 18:17 Zinc Acetate/ Diphenhydramine (Benadryl 2% Cr) 1 applic Q6H PRN TOP ITCHING Last administered on 01/26/19at 07:54; Admin Dose 1 APPLIC; Start 01/19/19 at 16:37 IV Flush (NS 10 ml) 10 ml PRN PRN IV IV PROTOCOL; Start 01/20/19 at 14:30 Cyanocobalamin (Vitamin B12 Inj) 1,000 mcg Q7D IM Last administered on 02/10/19at 09:50; Admin Dose 1,000 MCG; Start 02/03/19 at 09:00 Metoprolol Tartrate (Lopressor) 5 mg Q4H PRN IV HR>110 Hold SBP<100; Start 01/26/19 at 14:30 Vancomycin HCl (Vanco Iv Per Pharmacy) VANCOMYCIN PER PHARMACY PER PROTOCOL XX ; Start 01/27/19 at 12:00 Enoxaparin Sodium (Lovenox) 60 mg DAILY SC Last administered on 02/03/19 08:06; Admin Dose 60 MG; Start 01/28/19 at 09:00; Status Hold Atorvastatin Calcium (Lipitor) 40 mg QHS NGT Last administered on 02/14/19 20:49; Admin Dose 40 MG; Start 01/28/19 at 21:00 Docusate Sodium (Colace Liquid Cup) 100 mg BID NGT ; Start 01/27/19 at 22:00; Status Hold Terazosin HCl (Hytrin) 10 mg HS NGT Last administered on 02/13/19 21:27; Admin Dose 10 MG; Start 01/28/19 at 21:00 Levothyroxine Sodium (Synthroid) 125 mcg BEFORE BREAKFAST NGT Last a dministered on 02/15/19 06:25; Admin Dose 125 MCG; Start 01/28/19 at 07:00 Ferrous Sulfate (Feosol Liquid Cup) 300 mg WITH MEALS GTB Last administered on 02/15/19 08:57; Admin Dose 300 MG; Start 01/28/19 at 11:30 Multivitamins (Multivitamin) 30 ml DAILY GTB Last administered on 02/15/19 08:58; Admin Dose 30 ML; Start 01/28/19 at 11:00 Diagnostic Test (Pha) (Accu-Chek) 1 ea Q4 XX Last administered on 02/15/19 08:38; Admin Dose 1 EA; Start 01/28/19 at 13:00 Nystatin/ Triamcinolone Acetonide (Mycolog Oint) 1 applic BID TOP Last administered on 02/15/19 09:01; Admin Dose 1 APPLIC; Start 01/28/19 at 22:30 Insulin Aspart (Novolog Insulin Pen) NOVOLOG *MILD* ALGORI... Q4 SC Last administered on 02/13/19 21:34; Admin Dose 1 UNIT; Start 01/29/19 at 05:00 Albuterol/ Ipratropium (Duoneb) 3 ml Q6HWA RESP THERAPY HHN Last administered on 02/15/19 09:12; Admin Dose 3 ML; Start 01/29/19 at 14:00 Epoetin Dae-epbx (RETACRIT(non-esrd)) 40,000 unit Mo@1700 SC Last administered on 02/10/19 18:06; Admin Dose 40,000 UNIT; Start 02/03/19 at 17:00 Insulin Glargine (Lantus) 10 units DAILY@2000 SC Last administered on 02/14/19 21:01; Admin Dose 10 UNITS; Start 01/31/19 at 20:00 Aztreonam 1 gm/ Dextrose 50 ml @ 100 mls/hr Q12 IVPB Last administered on 02/15/19 08:57; Admin Dose 100 MLS/HR; Start 02/03/19 at 21:00 Metoprolol Tartrate (Lopressor) 12.5 mg BID PO Last administered on 02/13/19 21:28; Admin Dose 12.5 MG; Start 02/05/19 at 21:00 Eye Lubricant (Refresh Plus) 1 drop QID BOTH EYES Last administered on 02/15/19 08:57; Admin Dose 1 DROP; Start 02/06/19 at 09:00 Eye Lubricant (Akwa Oint) 1 applic HS LEFT EYE Last administered on 02/14/19 21:06; Admin Dose 1 APPLIC; Start 02/06/19 at 21:00 Multi-Ingredient Ointment (Aquaphor Oint 52.5 Gm) 1 applic BID TOP Last administered on 02/15/19 09:01; Admin Dose 1 APPLIC; Start 02/06/19 at 22:40 Lansoprazole (Prevacid) 30 mg BID@0600,1800 NGT Last administered on 02/15/19 06:25; Admin Dose 30 MG; Start 02/07/19 at 18:00 Tobramycin Sulfate/Sodium Chloride (Nilesh Inhal) 300 mg BID RESP THERAPY NEB Last administered on 02/15/19 09:15; Admin Dose 300 MG; Start 02/08/19 at 09:00 Vancomycin HCl 750 mg/Dextrose 250 ml @ 125 mls/hr Q72H IVPB Last administered on 02/12/19 22:24; Admin Dose 125 MLS/HR; Start 02/09/19 at 23:00 Furosemide (Lasix) 20 mg BID IV Last administered on 02/14/19 21:10; Admin Dose 20 MG; Start 02/13/19 at 00:30 Norepinephrine 250 ml @ 1.875 mls/ hr TITRATE IV ; Start 02/14/19 at 03:00 Miscellaneous Information (*Rx Drug Level Order Reminder*) VANCO TR LEVEL PRIOR... ONCE ONCE XX ; Start 02/15/19 at 22:00; Stop 02/15/19 at 22:01 Dextrose 1,000 ml @ 40 mls/hr Q24H IV Last administered on 02/14/19at 21:02; Admin Dose 40 MLS/HR; Start 02/14/19 at 19:00 Morphine Sulfate (morphine) 0.25 mg Q4H PRN IV SEVERE PAIN LEVEL 7-10; Start 02/15/19 at 11:00 COOPER CARO February 15, 2019 10:35
[2019-02-15] MEDS: morphine 2 MG INJ IV PRN (11:23)
--- NOTE | 2019-02-15 13:03 | CONS ---
Assessment/Plan Assessment/Plan Hospital Course (Demo Recall) IMPRESSION: 1. Atrial fibrillation, currently rate controlled.-off systemic anticoagulation due to anemia. ON asa only due to anemia 2. Possible congestive heart failure by chest x-ray, which will be diastolic, acute on chronic by most recent echo with an EF of 60%. 3. Tricuspid regurgitation, moderate by most recent echo. 4. Acute on chronic renal failure-mild worsening 5. Possible pneumonia. 6. History of coronary artery disease, status post coronary artery bypass graft surgery. 7. Dyslipidemia. 8. Rheumatoid arthritis. 9. Groin cellulitis. 10. Anemia-worsening again today. s/p endoscopy during this admission 11. Diabetes mellitus. 12. Sepsis/leukocytosis 14. abdominal mass 15. Rash-all over body with skin chaffing at this time, probable drug reaction- significantly improved 16. Encephalopathy-ongoing. MRI negative for acute CVA 17. coagulopathy-ongoing Recc: -Now transferred back to ICU due to unstable BP -serial ecg's -Continue statin -Continue broad spectrum abx's and f/u cx data -Ongoing GI eval of abd mass -ongoing derm eval of rash and continue topical treatment -BB as tolerated only and was held today -off anticoagulation secondary to anemia/GIB -transfuse PRBC's as necessary -lasix currently held n the setting of hypotension -check INR Consultation Date/Type/Reason Admit Date/Time Jan 17, 2019 at 15:58 Initial Consult Date 01/18/19 Type of Consult Cardiology Reason for Consultation CHF Requesting Provider: IVAN AKHTAR MD Date/Time of Note DATE: 02/15/19 TIME: 12:58 Exam/Review of Systems Vital Signs Vitals Vital Signs Date Temp Pulse Resp B/P (MAP) Pulse Ox O2 O2 Flow FiO2 Time Delivery Rate 02/15/19 93 60 12:33 02/15/19 78 35 09:10 02/15/19 Nasal 06:02 Cannula 02/15/19 100/61 05:00 (74) 02/15/19 97.7 04:00 02/14/19 10.0 04:05 Intake and Output 02/14/19 02/14/19 02/15/19 1515:00 23:00 07:00 IntakeIntake Total 480 ml 340 ml 1010 ml OutputOutput Total 360 ml 360 ml 330 ml BalanceBalance 120 ml -20 ml 680 ml Exam Exam Review of Systems: CONSTITUTIONAL: No fevers, chills. PULMONARY: on high flow CARDIOVASCULAR: No chest pain/palpitations GASTROINTESTINAL: No nausea/vomiting. GENITOURINARY: No hematuria/dysuria. MUSCULOSKELETAL: No myagias/arthalgias. PSYCHIATRIC: The patient denies depression. NEUROLOGIC: lethargic Constitutional: other (encephalopathic) Psych: no complaints Head: normocephalic ENMT: mucosa pink and moist Neck: supple, jvd (9 cm water) Respiratory: diminished breath sounds (at bases/B) Cardiovascular: regular rate and rhythm Gastrointestinal: soft, non-tender Musculoskeletal: muscle tone (normal) Extremities: edema (trace) Neurological: confused, lethargic Skin: other (chaffing and breakdoqn but improving) Labs Result Diagram: 02/15/19 0457 02/15/19 0530 Results 24hrs Laboratory Tests Test 02/14/19 13:13 02/14/19 13:19 02/14/19 17:16 02/14/19 17:43 Lactic Acid 1.1 Level Bedside Glucose 95 67 L 146 Test 02/14/19 18:05 02/14/19 20:55 02/15/19 01:24 02/15/19 02:44 Bedside Glucose 118 82 112 Blood Gas Blood Specimen arterial Source Arterial Blood 02/15/2019 2:49 Date Drawn :00 AM Arterial Blood 7.326 L pH (Temp corrected ) Arterial Blood 58.1 H pCO2 (Temp correct) Arterial Blood 59.0 L pO2 (Temp corrected ) Arterial Blood 29.7 H HCO3 Arterial Blood 3.1 H Base Excess Arterial Blood 86.7 L Oxygen Saturati on Manuel Test ACCEPTAB Arterial Blood Right Radial Gas Puncture Site Arterial 0.6 Blood Carboxyhe moglobin Arterial Blood 0.6 Methemoglobin Blood Gas A-a 595.9 H O2 Differential Oxyhemoglobin 85.7 L Percent Blood Gas 37.0 Temperature Blood Gas 24 Actual Respiration Rat e Blood Gas ROOM AIR Modality FiO2 100.0 Blood Gas OHAYA C RN Critical Value Read Back Blood Gas KB Notified Whom Blood Gas 02/15/2019 3:00 Notified Time :00 AM Test 02/15/19 04:57 02/15/19 05:00 02/15/19 05:25 02/15/19 05:30 White Blood 7.6 Count Red Blood Count 2.23 L Hemoglobin 6.6 *L Hematocrit 22.0 L Mean 98.7 Corpuscular Volume Mean 29.6 Corpuscular Hemoglobin Mean 30.0 L Corpuscular Hemoglobin Conc ent Red Cell 21.3 H Distribution Width Platelet Count 87 L Mean Platelet 13.1 H Volume Immature 0.300 Granulocytes % Neutrophils % Segmented 74 Neutrophils % (Manual) Band 7 H Neutrophils % (Manual) Lymphocytes % Lymphocytes % 15 (Manual) Reactive 1 H Lymphocytes % (Manual) Monocytes % Monocytes % 1 (Manual) Eosinophils % Eosinophils % 2 (Manual) Basophils % Nucleated Red 0.7 H Blood Cells % Immature 0.020 Granulocytes # Neutrophils # Neutrophils # 5.7 (Manual) Band 0.5 Neutrophils # Lymphocytes 1.1 (Manual) Lymphocytes # Reactive 0.0 Lymphocytes # Monocytes # Monocytes # 0.0 L (Manual) Eosinophils # Basophils # Nucleated Red Blood Cells # Platelet DECREASED Estimate Giant Platelets 3 H Polychromasia 3+ Hypochromasia 1+ Poikilocytosis 1+ Anisocytosis 2+ Macrocytosis 2+ Target Cells 1+ Schistocytes 1+ Blood Gas Blood arterial Specimen Source Arterial Blood 02/15/2019 5:39: Date Drawn 34 AM Arterial Blood 7.396 pH (Temp corrected ) Arterial Blood 47.2 H pCO2 (Temp correct) Arterial Blood 89.8 pO2 (Temp corrected ) Arterial Blood 28.3 H HCO3 Arterial Blood 3.0 Base Excess Arterial Blood 96.4 Oxygen Saturati on Manuel Test ACCEPTAB Arterial Blood Right Radial Gas Puncture Site Arterial 0.7 Blood Carboxyhe moglobin Arterial Blood 0.5 Methemoglobin Blood Gas A-a 213.6 H O2 Differential Oxyhemoglobin 95.2 Percent Blood Gas 37.0 Temperature Blood Gas 18.0 Respiration Rate Blood Gas 23 Actual Respiration Rat e Blood Gas MASK - BIPAP Modality FiO2 50.0 Blood Gas 10 Pressure Support Blood Gas 18/8 IPAP/EPAP Ratio Blood Gas ELENA Donato RN Critical Value Read Back Blood Gas KM Notified Whom Blood Gas 02/08/2019 5:50: Notified Time 24 AM Bedside Glucose 102 Sodium Level 153 H Potassium Level 3.9 Chloride Level 117 H Carbon Dioxide 30 Level Anion Gap 6 Blood Urea 82 H Nitrogen Creatinine 2.00 H Est Glomerular Filtrat Rate mL/min Glucose Level 93 Calcium Level 8.1 L Test 02/15/19 07:00 02/15/19 08:28 Blood Gas Blood arterial Specimen Source Arterial Blood 02/15/2019 8:30: Date Drawn 34 AM Arterial Blood 7.415 pH (Temp corrected ) Arterial Blood 62.6 H pCO2 (Temp correct) Arterial Blood 57.4 L pO2 (Temp corrected ) Arterial Blood 39.2 H HCO3 Arterial Blood 12.4 H Base Excess Arterial Blood 89.7 L Oxygen Saturati on Manuel Test ACCEPTAB Arterial Blood Right Radial Gas Puncture Site Arterial 0.3 Blood Carboxyhe moglobin Arterial Blood 0.3 Methemoglobin Blood Gas A-a 228.7 H O2 Differential Oxyhemoglobin 89.2 L Percent Blood Gas 37.0 Temperature Blood Gas HFNC Modality FiO2 50.0 Blood Gas CW Notified Whom Blood Gas 02/15/2019 8:58: Notified Time 32 AM Bedside Glucose 99 Medications Medications Current Medications Lactulose (Enulose) 20 gm DAILY PRN PO CONSTIPATION; Start 01/17/19 at 18:17 Acetaminophen (Tylenol Tab) 650 mg Q4H PRN PO PAIN Last administered on 02/11/19at 21:29; Admin Dose 650 MG; Start 01/17/19 at 18:17 Miscellaneous Information (Pending Santyl Order For Wound Care) This patient ramirez... PRN PRN XX WOUND CARE; Start 01/17/19 at 18:17 Albuterol/ Ipratropium (Duoneb) 3 ml Q2H RESP THERAPY PRN HHN SHORTNESS OF BREATH Last administered on 02/13/19at 05:52; Admin Dose 3 ML; Start 01/17/19 at 18:17 Bisacodyl (Dulcolax) 10 mg BID PRN PO CONSTIPATION; Start 01/17/19 at 18:17; Status Hold Folic Acid (Folic Acid) 1 mg DAILY PO Last administered on 02/15/19at 08:59; Admin Dose 1 MG; Start 01/17/19 at 18:17 Latanoprost (Xalatan) 1 drop HS BOTH EYES Last administered on 02/14/19at 21:06; Admin Dose 1 DROP; Start 01/17/19 at 18:17 Nitroglycerin (Nitroglycerin (Sl Tab) 0.4 Mg) 0.4 tab Q5M PRN SL CHEST PAIN; Start 01/17/19 at 18:17 IV Flush (NS 3 ml) 3 ml PER PROTOCOL IV ; Start 01/17/19 at 18:17 Miscellaneous Information 1 ea NOTE XX ; Start 01/17/19 at 18:17 Glucose (Glutose) 15 gm Q15M PRN PO DECREASED GLUCOSE; Start 01/17/19 at 18:17 Glucose (Glutose) 22.5 gm Q15M PRN PO DECREASED GLUCOSE; Start 01/17/19 at 18:17 Dextrose (D50w Syringe) 25 ml Q15M PRN IV DECREASED GLUCOSE Last administered on 02/14/19at 17:23; Admin Dose 25 ML; Start 01/17/19 at 18:17 Dextrose (D50w Syringe) 50 ml Q15M PRN IV DECREASED GLUCOSE; Start 01/17/19 at 18:17 Glucagon (Glucagen) 1 mg Q15M PRN IM DECREASED GLUCOSE Last administered on 02/11/19at 17:55; Admin Dose 1 MG; Start 01/17/19 at 18:17 Glucose (Glutose) 15 gm Q15M PRN BUCCAL DECREASED GLUCOSE; Start 01/17/19 at 18:17 Bisacodyl (Dulcolax Supp) 10 mg DAILY PRN AR CONSTIPATION; Start 01/17/19 at 18:17 Zinc Acetate/ Diphenhydramine (Benadryl 2% Cr) 1 applic Q6H PRN TOP ITCHING L ast administered on 01/26/19at 07:54; Admin Dose 1 APPLIC; Start 01/19/19 at 16:37 IV Flush (NS 10 ml) 10 ml PRN PRN IV IV PROTOCOL; Start 01/20/19 at 14:30 Cyanocobalamin (Vitamin B12 Inj) 1,000 mcg Q7D IM Last administered on 02/10/19at 09:50; Admin Dose 1,000 MCG; Start 02/03/19 at 09:00 Metoprolol Tartrate (Lopressor) 5 mg Q4H PRN IV HR>110 Hold SBP<100; Start 01/26/19 at 14:30 Vancomycin HCl (Vanco Iv Per Pharmacy) VANCOMYCIN PER PHARMACY PER PROTOCOL XX ; Start 01/27/19 at 12:00 Enoxaparin Sodium (Lovenox) 60 mg DAILY SC Last administered on 02/03/19at 08:06; Admin Dose 60 MG; Start 01/28/19 at 09:00; Status Hold Atorvastatin Calcium (Lipitor) 40 mg QHS NGT Last administered on 02/14/19 20:49; Admin Dose 40 MG; Start 01/28/19 at 21:00 Docusate Sodium (Colace Liquid Cup) 100 mg BID NGT ; Start 01/27/19 at 22:00; Status Hold Terazosin HCl (Hytrin) 10 mg HS NGT Last administered on 02/13/19 21:27; Admin Dose 10 MG; Start 01/28/19 at 21:00 Levothyroxine Sodium (Synthroid) 125 mcg BEFORE BREAKFAST NGT Last administered on 02/15/19 06:25; Admin Dose 125 MCG; Start 01/28/19 at 07:00 Ferrous Sulfate (Feosol Liquid Cup) 300 mg WITH MEALS GTB Last administered on 02/15/19 08:57; Admin Dose 300 MG; Start 01/28/19 at 11:30 Multivitamins (Multivitamin) 30 ml DAILY GTB Last administered on 02/15/19 08:58; Admin Dose 30 ML; Start 01/28/19 at 11:00 Diagnostic Test (Pha) (Accu-Chek) 1 ea Q4 XX Last administered on 02/15/19 08:38; Admin Dose 1 EA; Start 01/28/19 at 13:00 Nystatin/ Triamcinolone Acetonide (Mycolog Oint) 1 applic BID TOP Last administered on 02/15/19 09:01; Admin Dose 1 APPLIC; Start 01/28/19 at 22:30 Insulin Aspart (Novolog Insulin Pen) NOVOLOG *MILD* ALGORI... Q4 SC Last administered on 02/13/19 21:34; Admin Dose 1 UNIT; Start 01/29/19 at 05:00 Albuterol/ Ipratropium (Duoneb) 3 ml Q6HWA RESP THERAPY HHN Last administered on 02/15/19 09:12; Admin Dose 3 ML; Start 01/29/19 at 14:00 Epoetin Dae-epbx (RETACRIT(non-esrd)) 40,000 unit Mo@1700 SC Last administered on 02/10/19 18:06; Admin Dose 40,000 UNIT; Start 02/03/19 at 17:00 Insulin Glargine (Lantus) 10 units DAILY@2000 SC Last administered on 02/14/19 21:01; Admin Dose 10 UNITS; Start 01/31/19 at 20:00 Aztreonam 1 gm/ Dextrose 50 ml @ 100 mls/hr Q12 IVPB Last administered on 02/15/19 08:57; Admin Dose 100 MLS/HR; Start 02/03/19 at 21:00 Metoprolol Tartrate (Lopressor) 12.5 mg BID PO Last administered on 02/13/19 21:28; Admin Dose 12.5 MG; Start 02/05/19 at 21:00 Eye Lubricant (Refresh Plus) 1 drop QID BOTH EYES Last administered on 02/15/19 08:57; Admin Dose 1 DROP; Start 02/06/19 at 09:00 Eye Lubricant (Akwa Oint) 1 applic HS LEFT EYE Last administered on 02/14/19 21:06; Admin Dose 1 APPLIC; Start 02/06/19 at 21:00 Multi-Ingredient Ointment (Aquaphor Oint 52.5 Gm) 1 applic BID TOP Last administered on 02/15/19 09:01; Admin Dose 1 APPLIC; Start 02/06/19 at 22:40 Lansoprazole (Prevacid) 30 mg BID@0600,1800 NGT Last administered on 02/15/19 06:25; Admin Dose 30 MG; Start 02/07/19 at 18:00 Tobramycin Sulfate/Sodium Chloride (Nilesh Inhal) 300 mg BID RESP THERAPY NEB Last administered on 02/15/19 09:15; Admin Dose 300 MG; Start 02/08/19 at 09:00 Vancomycin HCl 750 mg/Dextrose 250 ml @ 125 mls/hr Q72H IVPB Last administered on 02/12/19 22:24; Admin Dose 125 MLS/HR; Start 02/09/19 at 23:00 Norepinephrine 250 ml @ 1.875 mls/ hr TITRATE IV ; Start 02/14/19 at 03:00 Miscellaneous Information (*Rx Drug Level Order Reminder*) VANCO TR LEVEL PRIOR... ONCE ONCE XX ; Start 02/15/19 at 22:00; Stop 02/15/19 at 22:01 Dextrose 1,000 ml @ 40 mls/hr Q24H IV Last administered on 02/14/19 21:02; Admin Dose 40 MLS/HR; Start 02/14/19 at 19:00 Morphine Sulfate (morphine) 0.25 mg Q4H PRN IV SEVERE PAIN LEVEL 7-10 Last administered on 02/15/19at 11:23; Admin Dose 0.25 MG; Start 02/15/19 at 11:00 MARJORIE JAIN February 15, 2019 13:03
--- NOTE | 2019-02-15 16:23 | CONS ---
Assessment/Plan Assessment/Plan Assessment/Plan (Daily) 88 yo male with multiple medical problems including DM, CRF, RA, PVD and chronic afib on Eliquis who presented to [facility] 01/05/19 with severe normocytic anemia and Hg ~7. 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 DO NOT RESUSCITATE # Anemia-normocytic -Hg stable around 6.6. 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 Elevated Methylmalonic acid level noted -s/p IV iron. will recheck iron panel at this time -continue vitamin b12 weekly as vitamin b12 was low normal and methylmalonic acid was elevated. Continue folate as well. -No evidence of hemolysis at this time. -Transfuse to keep Hgb > 7. 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 -This may be a pseudocyst or a precancerous pancreatic lesion. -It has been growing in size but patient is asymptomatic. EUS with biopsy is recommended and can either be done inpatient or outpatient setting. -The patient at this time is unlikely a candidate for a whipple surgery however. Patient is seen in collaboration with Dr King. appears comfortable on supplemental oxygen by nasal cannula Hgb 6.6 today - 1 unit PRBC transfusion today no new events reported last night dw staff Consultation Date/Type/Reason Admit Date/Time Jan 17, 2019 at 15:58 Initial Consult Date 01/18/19 Type of Consult oncology Reason for Consultation Anemia/Pancreatic mass Requesting Provider: IVAN AKHTAR MD Date/Time of Note DATE: 02/15/19 TIME: 16:21 24 HR Interval Summary Free Text/Dictation appears comfortable on supplemental oxygen by nasal cannula Hgb 6.6 today - 1 unit PRBC transfusion today no new events reported last night dw staff Subjective hx not possible: pt critical Constitutional: requiring IVF, requiring O2 Exam/Review of Systems Exam Vitals Vital Signs Date Temp Pulse Resp B/P (MAP) Pulse Ox O2 O2 Flow FiO2 Time Delivery Rate 02/15/19 85 60 13:56 02/15/19 87 38 13:51 02/15/19 Nasal 06:02 Cannula 02/15/19 100/61 05:00 (74) 02/15/19 97.7 04:00 02/14/19 10.0 04:05 Intake and Output 02/14/19 02/14/19 02/15/19 1515:00 23:00 07:00 IntakeIntake Total 480 ml 340 ml 1010 ml OutputOutput Total 360 ml 360 ml 330 ml BalanceBalance 120 ml -20 ml 680 ml Constitutional: frail Psych: nl mood/affect Head: atraumatic Eyes: EOMI, nl lids ENMT: nl external ears & nose Neck: non-tender Respiratory: clear to auscultation Cardiovascular: nl pulses, other (s1s2) Gastrointestinal: soft Musculoskeletal: muscle weakness Extremities: edema Neurological: confused Skin: other (Desquamating skin rash) Results Result Diagram: 02/15/19 0457 02/15/19 0530 Results 24hrs Laboratory Tests Test 02/14/19 17:16 02/14/19 17:43 02/14/19 18:05 02/14/19 20:55 Bedside Glucose 67 L 146 118 82 Test 02/15/19 01:24 02/15/19 02:44 02/15/19 04:57 02/15/19 05:00 Bedside Glucose 112 Blood Gas Blood arterial Blood Specimen arterial Source Arterial Blood 02/15/2019 2:49: 02/15/2019 5:39 Date Drawn 00 AM :34 AM Arterial Blood 7.326 L 7.396 pH (Temp corrected ) Arterial Blood 58.1 H 47.2 H pCO2 (Temp correct) Arterial Blood 59.0 L 89.8 pO2 (Temp corrected ) Arterial Blood 29.7 H 28.3 H HCO3 Arterial Blood 3.1 H 3.0 Base Excess Arterial Blood 86.7 L 96.4 Oxygen Saturati on Manuel Test ACCEPTAB ACCEPTAB Arterial Blood Right Radial Right Radial Gas Puncture Site Arterial 0.6 0.7 Blood Carboxyhe moglobin Arterial Blood 0.6 0.5 Methemoglobin Blood Gas A-a 595.9 H 213.6 H O2 Differential Oxyhemoglobin 85.7 L 95.2 Percent Blood Gas 37.0 37.0 Temperature Blood Gas 24 23 Actual Respiration Rat e Blood Gas ROOM AIR MASK - BIPAP Modality FiO2 100.0 50.0 Blood Gas ELENA Donato RN Critical Value Read Back Blood Gas KB KM Notified Whom Blood Gas 02/15/2019 3:00: 02/08/2019 5:50 Notified Time 00 AM :24 AM White Blood 7.6 Count Red Blood Count 2.23 L Hemoglobin 6.6 *L Hematocrit 22.0 L Mean 98.7 Corpuscular Volume Mean 29.6 Corpuscular Hemoglobin Mean 30.0 L Corpuscular Hemoglobin Conc ent Red Cell 21.3 H Distribution Width Platelet Count 87 L Mean Platelet 13.1 H Volume Immature 0.300 Granulocytes % Neutrophils % Segmented 74 Neutrophils % (Manual) Band 7 H Neutrophils % (Manual) Lymphocytes % Lymphocytes % 15 (Manual) Reactive 1 H Lymphocytes % (Manual) Monocytes % Monocytes % 1 (Manual) Eosinophils % Eosinophils % 2 (Manual) Basophils % Nucleated Red 0.7 H Blood Cells % Immature 0.020 Granulocytes # Neutrophils # Neutrophils # 5.7 (Manual) Band 0.5 Neutrophils # Lymphocytes 1.1 (Manual) Lymphocytes # Reactive 0.0 Lymphocytes # Monocytes # Monocytes # 0.0 L (Manual) Eosinophils # Basophils # Nucleated Red Blood Cells # Platelet DECREASED Estimate Giant Platelets 3 H Polychromasia 3+ Hypochromasia 1+ Poikilocytosis 1+ Anisocytosis 2+ Macrocytosis 2+ Target Cells 1+ Schistocytes 1+ Blood Gas 18.0 Respiration Rate Blood Gas 10 Pressure Support Blood Gas 18/8 IPAP/EPAP Ratio Test 02/15/19 05:25 02/15/19 05:30 02/15/19 07:00 02/15/19 08:28 Bedside Glucose 102 99 Sodium Level 153 H Potassium Level 3.9 Chloride Level 117 H Carbon Dioxide 30 Level Anion Gap 6 Blood Urea 82 H Nitrogen Creatinine 2.00 H Est Glomerular Filtrat Rate mL/min Glucose Level 93 Calcium Level 8.1 L Blood Gas Blood arterial Specimen Source Arterial Blood 02/15/2019 8:30: Date Drawn 34 AM Arterial Blood 7.415 pH (Temp corrected ) Arterial Blood 62.6 H pCO2 (Temp correct) Arterial Blood 57.4 L pO2 (Temp corrected ) Arterial Blood 39.2 H HCO3 Arterial Blood 12.4 H Base Excess Arterial Blood 89.7 L Oxygen Saturati on Manuel Test ACCEPTAB Arterial Blood Right Radial Gas Puncture Site Arterial 0.3 Blood Carboxyhe moglobin Arterial Blood 0.3 Methemoglobin Blood Gas A-a 228.7 H O2 Differential Oxyhemoglobin 89.2 L Percent Blood Gas 37.0 Temperature Blood Gas HFNC Modality FiO2 50.0 Blood Gas CW Notified Whom Blood Gas 02/15/2019 8:58: Notified Time 32 AM Test 02/15/19 13:36 02/15/19 13:45 Bedside Glucose 101 Prothrombin 22.1 H Time Prothrombin 1.7 Time Ratio INR 1.93 International Normalized Rati o Medications Medication Current Medications Lactulose (Enulose) 20 gm DAILY PRN PO CONSTIPATION; Start 01/17/19 at 18:17 Acetaminophen (Tylenol Tab) 650 mg Q4H PRN PO PAIN Last administered on 02/11/19at 21:29; Admin Dose 650 MG; Start 01/17/19 at 18:17 Miscellaneous Information (Pending [facility] Order For Wound Care) This patient ramirez... PRN PRN XX WOUND CARE; Start 01/17/19 at 18:17 Albuterol/ Ipratropium (Duoneb) 3 ml Q2H RESP THERAPY PRN HHN SHORTNESS OF BREATH Last administered on 02/13/19at 05:52; Admin Dose 3 ML; Start 01/17/19 at 18:17 Bisacodyl (Dulcolax) 10 mg BID PRN PO CONSTIPATION; Start 01/17/19 at 18:17; Status Hold Folic Acid (Folic Acid) 1 mg DAILY PO Last administered on 02/15/19at 08:59; Admin Dose 1 MG; Start 01/17/19 at 18:17 Latanoprost (Xalatan) 1 drop HS BOTH EYES Last administered on 02/14/19at 21:06; Admin Dose 1 DROP; Start 01/17/19 at 18:17 Nitroglycerin (Nitroglycerin (Sl Tab) 0.4 Mg) 0.4 tab Q5M PRN SL CHEST PAIN; Start 01/17/19 at 18:17 IV Flush (NS 3 ml) 3 ml PER PROTOCOL IV ; Start 01/17/19 at 18:17 Miscellaneous Information 1 ea NOTE XX ; Start 01/17/19 at 18:17 Glucose (Glutose) 15 gm Q15M PRN PO DECREASED GLUCOSE; Start 01/17/19 at 18:17 Glucose (Glutose) 22.5 gm Q15M PRN PO DECREASED GLUCOSE; Start 01/17/19 at 18:17 Dextrose (D50w Syringe) 25 ml Q15M PRN IV DECREASED GLUCOSE Last administered on 02/14/19at 17:23; Admin Dose 25 ML; Start 01/17/19 at 18:17 Dextrose (D50w Syringe) 50 ml Q15M PRN IV DECREASED GLUCOSE; Start 01/17/19 at 18:17 Glucagon (Glucagen) 1 mg Q15M PRN IM DECREASED GLUCOSE Last administered on 02/11/19at 17:55; Admin Dose 1 MG; Start 01/17/19 at 18:17 Glucose (Glutose) 15 gm Q15M PRN BUCCAL DECREASED GLUCOSE; Start 01/17/19 at 18:17 Bisacodyl (Dulcolax Supp) 10 mg DAILY PRN IN CONSTIPATION; Start 01/17/19 at 18:17 Zinc Acetate/ Diphenhydramine (Benadryl 2% Cr) 1 applic Q6H PRN TOP ITCHING Last administered on 01/26/19at 07:54; Admin Dose 1 APPLIC; Start 01/19/19 at 16:37 IV Flush (NS 10 ml) 10 ml PRN PRN IV IV PROTOCOL; Start 01/20/19 at 14:30 Cyanocobalamin (Vitamin B12 Inj) 1,000 mcg Q7D IM Last administered on 02/10/19at 09:50; Admin Dose 1,000 MCG; Start 02/03/19 at 09:00 Metoprolol Tartrate (Lopressor) 5 mg Q4H PRN IV HR>110 Hold SBP<100; Start 01/26/19 at 14:30 Vancomycin HCl (Vanco Iv Per Pharmacy) VANCOMYCIN PER PHARMACY PER PROTOCOL XX ; Start 01/27/19 at 12:00 Enoxaparin Sodium (Lovenox) 60 mg DAILY SC Last administered on 02/03/19at 08:06; Admin Dose 60 MG; Start 01/28/19 at 09:00; Status Hold Atorvastatin Calcium (Lipitor) 40 mg QHS NGT Last administered on 02/14/19at 20:49; Admin Dose 40 MG; Start 01/28/19 at 21:00 Docusate Sodium (Colace Liquid Cup) 100 mg BID NGT ; Start 01/27/19 at 22:00; Status Hold Terazosin HCl (Hytrin) 10 mg HS NGT Last administered on 02/13/19 21:27; Admin Dose 10 MG; Start 01/28/19 at 21:00 Levothyroxine Sodium (Synthroid) 125 mcg BEFORE BREAKFAST NGT Last administered on 02/15/19 06:25; Admin Dose 125 MCG; Start 01/28/19 at 07:00 Ferrous Sulfate (Feosol Liquid Cup) 300 mg WITH MEALS GTB Last administered on 02/15/19 13:32; Admin Dose 300 MG; Start 01/28/19 at 11:30 Multivitamins (Multivitamin) 30 ml DAILY GTB Last administered on 02/15/19 08:58; Admin Dose 30 ML; Start 01/28/19 at 11:00 Diagnostic Test (Pha) (Accu-Chek) 1 ea Q4 XX Last administered on 02/15/19 13:32; Admin Dose 1 EA; Start 01/28/19 at 13:00 Nystatin/ Triamcinolone Acetonide (Mycolog Oint) 1 applic BID TOP Last a dministered on 02/15/19 09:01; Admin Dose 1 APPLIC; Start 01/28/19 at 22:30 Insulin Aspart (Novolog Insulin Pen) NOVOLOG *MILD* ALGORI... Q4 SC Last administered on 02/13/19 21:34; Admin Dose 1 UNIT; Start 01/29/19 at 05:00 Albuterol/ Ipratropium (Duoneb) 3 ml Q6HWA RESP THERAPY HHN Last administered on 02/15/19 13:50; Admin Dose 3 ML; Start 01/29/19 at 14:00 Epoetin Dae-epbx (RETACRIT(non-esrd)) 40,000 unit Mo@1700 SC Last administered on 02/10/19 18:06; Admin Dose 40,000 UNIT; Start 02/03/19 at 17:00 Insulin Glargine (Lantus) 10 units DAILY@2000 SC Last administered on 02/14/19 21:01; Admin Dose 10 UNITS; Start 01/31/19 at 20:00 Aztreonam 1 gm/ Dextrose 50 ml @ 100 mls/hr Q12 IVPB Last administered on 02/15/19 08:57; Admin Dose 100 MLS/HR; Start 02/03/19 at 21:00 Metoprolol Tartrate (Lopressor) 12.5 mg BID PO Last administered on 02/13/19 21:28; Admin Dose 12.5 MG; Start 02/05/19 at 21:00 Eye Lubricant (Refresh Plus) 1 drop QID BOTH EYES Last administered on 02/15/19 13:32; Admin Dose 1 DROP; Start 02/06/19 at 09:00 Eye Lubricant (Akwa Oint) 1 applic HS LEFT EYE Last administered on 02/14/19 21:06; Admin Dose 1 APPLIC; Start 02/06/19 at 21:00 Multi-Ingredient Ointment (Aquaphor Oint 52.5 Gm) 1 applic BID TOP Last administered on 02/15/19 09:01; Admin Dose 1 APPLIC; Start 02/06/19 at 22:40 Lansoprazole (Prevacid) 30 mg BID@0600,1800 NGT Last administered on 02/15/19 06:25; Admin Dose 30 MG; Start 02/07/19 at 18:00 Tobramycin Sulfate/Sodium Chloride (Nilesh Inhal) 300 mg BID RESP THERAPY NEB Last administered on 02/15/19 09:15; Admin Dose 300 MG; Start 02/08/19 at 09:00 Vancomycin HCl 750 mg/Dextrose 250 ml @ 125 mls/hr Q72H IVPB Last administered on 02/12/19 22:24; Admin Dose 125 MLS/HR; Start 02/09/19 at 23:00 Norepinephrine 250 ml @ 1.875 mls/ hr TITRATE IV ; Start 02/14/19 at 03:00 Miscellaneous Information (*Rx Drug Level Order Reminder*) VANCO TR LEVEL PRIOR... ONCE ONCE XX ; Start 02/15/19 at 22:00; Stop 02/15/19 at 22:01 Dextrose 1,000 ml @ 40 mls/hr Q24H IV Last administered on 02/14/19 21:02; Admin Dose 40 MLS/HR; Start 02/14/19 at 19:00 Morphine Sulfate (morphine) 0.25 mg Q4H PRN IV SEVERE PAIN LEVEL 7-10 Last administered on 02/15/19 11:23; Admin Dose 0.25 MG; Start 02/15/19 at 11:00 JESI GATES February 15, 2019 16:23
--- NOTE | 2019-02-15 16:59 | CONS ---
Assessment/Plan Assessment/Plan Hospital Course (Demo Recall) ID PROGRESS NOTE CURRENT ABX: DAY # => Vanco IV + Azactam + TOBRA INH s/p Cancidas 02/15/19 0457 02/15/19 0530 24 H INTERVAL SUMMARY * Seen in the ICU -- TNS back to ICU for acute hypoxemic respiratory failure he is on high flow oxygen * Chart reviewed -- symptomatic anemia MICRO/OTHER * 01/30/19 EYE CX: WOUND CULTURE Organism 1 CORYNEBACTERIUM SPECIES QUANTITY SCANT GROWTH SOURCE: EXUDATE FROM RIGHT EYE * 01/28/19 RESP CX: RESPIRATORY CULTURE Final Organism 1 ESCHERICHIA COLI QUANTITY SCANT GROWTH Organism 2 NORMAL RESPIRATORY MARIE QUANTITY 2+ E COLI M.I.C. RX --------- --- AMPICILLIN 4 S CEFAZOLIN I CEFOTAXIME S CIPROFLOXACIN >=4 R GENTAMICIN <=1 S LEVOFLOXACIN >=8 R TOBRAMYCIN <=1 S TRIMETHOPRIM/SULFAMETHOXAZOLE <=20 S * 01/27/19 BCX (-) * 01/21/19 BCX (-) * 01/17/19 BCX (+) Staph COAGULASE NEGATIVE STAPH == skin contaminant * 01/05/19 BCx (-) * Skin Cx (+)Mateus Albicans HPI/HOSPITAL COURSE * 88 yo M w/multiple-cardiopulmonary co-morbid conditions -- readmitted with sepsis likely due to pulmonary infection. * Patient s/p recent admission for PNA with radiological improvement -- now returns with probable persistent pulm infection + SIGNIFICANT YEAST DERMATOMYCOSIS GROIN -- Primary has narrowed ABX spectrum for concern YEAST infection and MICHELLE which is an effective strategy. * WBC down with empiric ABX coverage. * ROS: Limited by patient's critical illness DIAGNOSTIC IMAGING * 01/31/19 CXR: 1. Diffuse interstitial and airspace opacities throughout the lungs, slightly improved on the right and worsened on the left representing multifocal infection in the acute setting. Pulmonary edema could appear similarly. 2. Small bilateral pleural effusions, unchanged. * 01/28/19: MRI BRAIN: * 1. No acute intracranial abnormality. No intracranial hemorrhage, enhan cing mass lesion, infarction or hydrocephalous. * 2. Remote prior right temporal lobe infarct with associated gliosis in the underlying white matter. No evidence of acute superimposed on chronic in farct. * 3. Mild to moderate peripheral and central cerebral volume loss, within normal limits for age. * 4. Mild to moderate patchy periventricular and subcortical white matter lesions, likely related to chronic microangiopathic changes. * 5. Remote lacunar infarct in the right cerebellar hemisphere * 01/15/19 CT CHEST: IMPRESSION: Patchy bilateral lung opacities, possibly representing multifocal pneumonia.Small to moderate bilateral pleural effusions.Status post CABG.Moderate atherosclerotic calcifications. Enlarged main pulmonary artery, possibly representing pulmonary hypertension.Mild diffuse subcutaneous edema.Mild to moderate dextroscoliosis. * 01/07/19 CXR:Cardiomegaly with interval mild increase in diffuse interstitial/air space opacities, representing edema and/or pneumonia. Small bilateral pleural effusions. * 12/16/18 2D ECHO Conclusions: * Normal left ventricular systolic function. Normal left ventricular cavity size. Moderate concentric left ventricular hypertrophy. Ejection fraction is visually estimated at 60 %. Tissue Doppler/Mitral Doppler indices are consistent with restrictive physiology with markedly elevated left atrial pressure (Stage III-IV diastolic dysfunction). * Mild right ventricular systolic dysfunction. Mild enlargement of right ventricle. * There is moderate enlargement of right atrium. * Normal appearance and function of the mitral valve with trace physiologic regurgitation. Mitral valve leaflets appear mildly thickened. Mild mitral annular calcification. Mild to moderate mitral valve regurgitation. * Normal appearance of the aortic valve. No significant aortic stenosis or insufficiency. No hemodynamically significant aortic stenosis by doppler. Aortic cusps appear mildly calcified. Mild aortic valve regurgitation. * Normal appearance of the tricuspid valve. Estimated peak PA systolic pressure 74 mmHg. There is moderate tricuspid regurgitation. PHYSICAL EXAMINATION: GENERAL: VSS, frail elderly male lethargic -- HEENT: AT, NC, anicteric NECK: Supple, CHEST: Equal chest rise bilaterally - diminishes bilateral HEART: Pulse RRR ABDOMEN: Soft / NT EXTREMITIES: Warm, dry SKIN: No rash, no diaphoresis == BILATERAL AXILLARY, GROIN, SANDY YEAST INFECTION ID ASSESSMENT 88 yo M w/multiple chronic co-morbid conditions re-admit with: 1. Recurrent ASP Pneumonitis w/ENCEPHALOPATHY -- ASP VS HCAP == w/acute hypoxic respiratory decompensation 2. 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 4. 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 Advanced rheumatoid arthritis with possibility of rheumatoid lung as well. * Patient was on Remicade and stopped using it about a year ago. 6. Hypertension w/HTN heart disease 7. Hyperlipidemia. 8. Hypothyroidism. 9. Normocytic normochromic chronic anemia 10. Bilateral groin cellulitis more likely associated with mateus, patches in groin and axilla bilaterally-> recent ABX for PNA 11. Acute on chronic renal failure likely secondary to sepsis 12. Diabetes type 2. 13. CV disease, CAD, PAD, Hx of CABGx2, carotid stent 14. Peripheral vascular disease. 15. Chronic A.Fib on anticoagulants 16. ANEMIA w/ Thrombocytopenia-> s/p EGD DECEMBER 2018 * PRBC Tx PRN 17. BPH on Hytrin 18. S/P Right epididymitis 19. Pancreatic lesion per CT-> unlikely neoplasm per oncology notes 20. Skin lesions --> s/p punch biopsy revealed allergic reaction (-)MRSA Nares ABX ALLERGIES: KNDA INVASIVES: PIV CURRENT ABX: DAY # => Vanco IV + Azactam + TOBRA INH s/p Cancidas ID RECOMMENDATIONS/PLAN: 1. Continue current ABX over the weekend + ASP precautions 2. DNR status noted which is a change from my last visit with the patient 2 weeks ago . Consultation Date/Type/Reason Admit Date/Time Jan 17, 2019 at 15:58 Initial Consult Date Requesting Provider: IVAN AKHTAR MD Date/Time of Note DATE: 02/15/19 TIME: 16:53 Exam/Review of Systems Exam Vitals Vital Signs Date Temp Pulse Resp B/P (MAP) Pulse Ox O2 O2 Flow FiO2 Time Delivery Rate 02/15/19 97.6 82 18 103/37 89 16:00 (59) 02/15/19 60 13:56 02/15/19 Nasal 06:02 Cannula 02/14/19 10.0 04:05 Intake and Output 02/14/19 02/14/19 02/15/19 1515:00 23:00 07:00 IntakeIntake Total 480 ml 340 ml 1010 ml OutputOutput Total 360 ml 360 ml 330 ml BalanceBalance 120 ml -20 ml 680 ml Results Result Diagram: 02/15/19 0457 02/15/19 0530 Results 24hrs Laboratory Tests Test 02/14/19 17:16 02/14/19 17:43 02/14/19 18:05 02/14/19 20:55 Bedside Glucose 67 L 146 118 82 Test 02/15/19 01:24 02/15/19 02:44 02/15/19 04:57 02/15/19 05:00 Bedside Glucose 112 Blood Gas Blood arterial Blood Specimen arterial Source Arterial Blood 02/15/2019 2:49: 02/15/2019 5:39 Date Drawn 00 AM :34 AM Arterial Blood 7.326 L 7.396 pH (Temp corrected ) Arterial Blood 58.1 H 47.2 H pCO2 (Temp correct) Arterial Blood 59.0 L 89.8 pO2 (Temp corrected ) Arterial Blood 29.7 H 28.3 H HCO3 Arterial Blood 3.1 H 3.0 Base Excess Arterial Blood 86.7 L 96.4 Oxygen Saturati on Manuel Test ACCEPTAB ACCEPTAB Arterial Blood Right Radial Right Radial Gas Puncture Site Arterial 0.6 0.7 Blood Carboxyhe moglobin Arterial Blood 0.6 0.5 Methemoglobin Blood Gas A-a 595.9 H 213.6 H O2 Differential Oxyhemoglobin 85.7 L 95.2 Percent Blood Gas 37.0 37.0 Temperature Blood Gas 24 23 Actual Respiration Rat e Blood Gas ROOM AIR MASK - BIPAP Modality FiO2 100.0 50.0 Blood Gas ELENA Donato RN Critical Value Read Back Blood Gas KB Notified Whom Blood Gas 02/15/2019 3:00: 02/08/2019 5:50 Notified Time 00 AM :24 AM White Blood 7.6 Count Red Blood Count 2.23 L Hemoglobin 6.6 *L Hematocrit 22.0 L Mean 98.7 Corpuscular Volume Mean 29.6 Corpuscular Hemoglobin Mean 30.0 L Corpuscular Hemoglobin Conc ent Red Cell 21.3 H Distribution Width Platelet Count 87 L Mean Platelet 13.1 H Volume Immature 0.300 Granulocytes % Neutrophils % Segmented 74 Neutrophils % (Manual) Band 7 H Neutrophils % (Manual) Lymphocytes % Lymphocytes % 15 (Manual) Reactive 1 H Lymphocytes % (Manual) Monocytes % Monocytes % 1 (Manual) Eosinophils % Eosinophils % 2 (Manual) Basophils % Nucleated Red 0.7 H Blood Cells % Immature 0.020 Granulocytes # Neutrophils # Neutrophils # 5.7 (Manual) Band 0.5 Neutrophils # Lymphocytes 1.1 (Manual) Lymphocytes # Reactive 0.0 Lymphocytes # Monocytes # Monocytes # 0.0 L (Manual) Eosinophils # Basophils # Nucleated Red Blood Cells # Platelet DECREASED Estimate Giant Platelets 3 H Polychromasia 3+ Hypochromasia 1+ Poikilocytosis 1+ Anisocytosis 2+ Macrocytosis 2+ Target Cells 1+ Schistocytes 1+ Blood Gas 18.0 Respiration Rate Blood Gas 10 Pressure Support Blood Gas 18/8 IPAP/EPAP Ratio Test 02/15/19 05:25 02/15/19 05:30 02/15/19 07:00 02/15/19 08:28 Bedside Glucose 102 99 Sodium Level 153 H Potassium Level 3.9 Chloride Level 117 H Carbon Dioxide 30 Level Anion Gap 6 Blood Urea 82 H Nitrogen Creatinine 2.00 H Est Glomerular Filtrat Rate mL/min Glucose Level 93 Calcium Level 8.1 L Blood Gas Blood arterial Specimen Source Arterial Blood 02/15/2019 8:30: Date Drawn 34 AM Arterial Blood 7.415 pH (Temp corrected ) Arterial Blood 62.6 H pCO2 (Temp correct) Arterial Blood 57.4 L pO2 (Temp corrected ) Arterial Blood 39.2 H HCO3 Arterial Blood 12.4 H Base Excess Arterial Blood 89.7 L Oxygen Saturati on Manuel Test ACCEPTAB Arterial Blood Right Radial Gas Puncture Site Arterial 0.3 Blood Carboxyhe moglobin Arterial Blood 0.3 Methemoglobin Blood Gas A-a 228.7 H O2 Differential Oxyhemoglobin 89.2 L Percent Blood Gas 37.0 Temperature Blood Gas HFNC Modality FiO2 50.0 Blood Gas CW Notified Whom Blood Gas 02/15/2019 8:58: Notified Time 32 AM Test 02/15/19 13:36 02/15/19 13:45 Bedside Glucose 101 Prothrombin 22.1 H Time Prothrombin 1.7 Time Ratio INR 1.93 International Normalized Rati o Medications Medication Current Medications Lactulose (Enulose) 20 gm DAILY PRN PO CONSTIPATION; Start 01/17/19 at 18:17 Acetaminophen (Tylenol Tab) 650 mg Q4H PRN PO PAIN Last administered on 02/11/19at 21:29; Admin Dose 650 MG; Start 01/17/19 at 18:17 Miscellaneous Information (Pending Santyl Order For Wound Care) This patient ramirez... PRN PRN XX WOUND CARE; Start 01/17/19 at 18:17 Albuterol/ Ipratropium (Duoneb) 3 ml Q2H RESP THERAPY PRN HHN SHORTNESS OF BREATH Last administered on 02/13/19at 05:52; Admin Dose 3 ML; Start 01/17/19 at 18:17 Bisacodyl (Dulcolax) 10 mg BID PRN PO CONSTIPATION; Start 01/17/19 at 18:17; Status Hold Folic Acid (Folic Acid) 1 mg DAILY PO Last administered on 02/15/19at 08:59; Admin Dose 1 MG; Start 01/17/19 at 18:17 Latanoprost (Xalatan) 1 drop HS BOTH EYES Last administered on 02/14/19at 21:06; Admin Dose 1 DROP; Start 01/17/19 at 18:17 Nitroglycerin (Nitroglycerin (Sl Tab) 0.4 Mg) 0.4 tab Q5M PRN SL CHEST PAIN; Start 01/17/19 at 18:17 IV Flush (NS 3 ml) 3 ml PER PROTOCOL IV ; Start 01/17/19 at 18:17 Miscellaneous Information 1 ea NOTE XX ; Start 01/17/19 at 18:17 Glucose (Glutose) 15 gm Q15M PRN PO DECREASED GLUCOSE; Start 01/17/19 at 18:17 Glucose (Glutose) 22.5 gm Q15M PRN PO DECREASED GLUCOSE; Start 01/17/19 at 18:17 Dextrose (D50w Syringe) 25 ml Q15M PRN IV DECREASED GLUCOSE Last administered on 02/14/19at 17:23; Admin Dose 25 ML; Start 01/17/19 at 18:17 Dextrose (D50w Syringe) 50 ml Q15M PRN IV DECREASED GLUCOSE; Start 01/17/19 at 18:17 Glucagon (Glucagen) 1 mg Q15M PRN IM DECREASED GLUCOSE Last administered on 02/11/19at 17:55; Admin Dose 1 MG; Start 01/17/19 at 18:17 Glucose (Glutose) 15 gm Q15M PRN BUCCAL DECREASED GLUCOSE; Start 01/17/19 at 18:17 Bisacodyl (Dulcolax Supp) 10 mg DAILY PRN UT CONSTIPATION; Start 01/17/19 at 18:17 Zinc Acetate/ Diphenhydramine (Benadryl 2% Cr) 1 applic Q6H PRN TOP ITCHING Last administered on 01/26/19at 07:54; Admin Dose 1 APPLIC; Start 01/19/19 at 1 6:37 IV Flush (NS 10 ml) 10 ml PRN PRN IV IV PROTOCOL; Start 01/20/19 at 14:30 Cyanocobalamin (Vitamin B12 Inj) 1,000 mcg Q7D IM Last administered on 02/10/19 09:50; Admin Dose 1,000 MCG; Start 02/03/19 at 09:00 Metoprolol Tartrate (Lopressor) 5 mg Q4H PRN IV HR>110 Hold SBP<100; Start 01/26/19 at 14:30 Vancomycin HCl (Vanco Iv Per Pharmacy) VANCOMYCIN PER PHARMACY PER PROTOCOL XX ; Start 01/27/19 at 12:00 Enoxaparin Sodium (Lovenox) 60 mg DAILY SC Last administered on 02/03/19 08:06; Admin Dose 60 MG; Start 01/28/19 at 09:00; Status Hold Atorvastatin Calcium (Lipitor) 40 mg QHS NGT Last administered on 02/14/19 20:49; Admin Dose 40 MG; Start 01/28/19 at 21:00 Docusate Sodium (Colace Liquid Cup) 100 mg BID NGT ; Start 01/27/19 at 22:00; Status Hold Terazosin HCl (Hytrin) 10 mg HS NGT Last administered on 02/13/19 21:27; Admin Dose 10 MG; Start 01/28/19 at 21:00 Levothyroxine Sodium (Synthroid) 125 mcg BEFORE BREAKFAST NGT Last administered on 02/15/19 06:25; Admin Dose 125 MCG; Start 01/28/19 at 07:00 Ferrous Sulfate (Feosol Liquid Cup) 300 mg WITH MEALS GTB Last administered on 02/15/19 13:32; Admin Dose 300 MG; Start 01/28/19 at 11:30 Multivitamins (Multivitamin) 30 ml DAILY GTB Last administered on 02/15/19 08:58; Admin Dose 30 ML; Start 01/28/19 at 11:00 Diagnostic Test (Pha) (Accu-Chek) 1 ea Q4 XX Last administered on 02/15/19 13:32; Admin Dose 1 EA; Start 01/28/19 at 13:00 Nystatin/ Triamcinolone Acetonide (Mycolog Oint) 1 applic BID TOP Last administered on 02/15/19 09:01; Admin Dose 1 APPLIC; Start 01/28/19 at 22:30 Insulin Aspart (Novolog Insulin Pen) NOVOLOG *MILD* ALGORI... Q4 SC Last administered on 02/13/19 21:34; Admin Dose 1 UNIT; Start 01/29/19 at 05:00 Albuterol/ Ipratropium (Duoneb) 3 ml Q6HWA RESP THERAPY HHN Last administered on 02/15/19 13:50; Admin Dose 3 ML; Start 01/29/19 at 14:00 Epoetin Dae-epbx (RETACRIT(non-esrd)) 40,000 unit Mo@1700 SC Last administered on 02/10/19 18:06; Admin Dose 40,000 UNIT; Start 02/03/19 at 17:00 Insulin Glargine (Lantus) 10 units DAILY@2000 SC Last administered on 02/14/19 21:01; Admin Dose 10 UNITS; Start 01/31/19 at 20:00 Aztreonam 1 gm/ Dextrose 50 ml @ 100 mls/hr Q12 IVPB Last administered on 02/15/19 08:57; Admin Dose 100 MLS/HR; Start 02/03/19 at 21:00 Metoprolol Tartrate (Lopressor) 12.5 mg BID PO Last administered on 02/13/19 21:28; Admin Dose 12.5 MG; Start 02/05/19 at 21:00 Eye Lubricant (Refresh Plus) 1 drop QID BOTH EYES Last administered on 02/15/19 13:32; Admin Dose 1 DROP; Start 02/06/19 at 09:00 Eye Lubricant (Akwa Oint) 1 applic HS LEFT EYE Last administered on 02/14/19 21:06; Admin Dose 1 APPLIC; Start 02/06/19 at 21:00 Multi-Ingredient Ointment (Aquaphor Oint 52.5 Gm) 1 applic BID TOP Last administered on 02/15/19 09:01; Admin Dose 1 APPLIC; Start 02/06/19 at 22:40 Lansoprazole (Prevacid) 30 mg BID@0600,1800 NGT Last administered on 02/15/19 06:25; Admin Dose 30 MG; Start 02/07/19 at 18:00 Tobramycin Sulfate/Sodium Chloride (Nilesh Inhal) 300 mg BID RESP THERAPY NEB Last administered on 02/15/19at 09:15; Admin Dose 300 MG; Start 02/08/19 at 09:00 Vancomycin HCl 750 mg/Dextrose 250 ml @ 125 mls/hr Q72H IVPB Last administered on 02/12/19at 22:24; Admin Dose 125 MLS/HR; Start 02/09/19 at 23:00 Norepinephrine 250 ml @ 1.875 mls/ hr TITRATE IV ; Start 02/14/19 at 03:00 Miscellaneous Information (*Rx Drug Level Order Reminder*) VANCO TR LEVEL PRIOR... ONCE ONCE XX ; Start 02/15/19 at 22:00; Stop 02/15/19 at 22:01 Dextrose 1,000 ml @ 40 mls/hr Q24H IV Last administered on 02/14/19at 21:02; Admin Dose 40 MLS/HR; Start 02/14/19 at 19:00 Morphine Sulfate (morphine) 0.25 mg Q4H PRN IV SEVERE PAIN LEVEL 7-10 Last administered on 02/15/19at 11:23; Admin Dose 0.25 MG; Start 02/15/19 at 11:00 NEDA ENRIQUEZ NP February 15, 2019 16:59
[2019-02-15] MEDS: DEXTROSE 10% 1,000 ML IV SCH (19:00)
[2019-02-15] MEDS: INSULIN GLARGINE [LANTus] (100 UNITS/ML) SYG SC SCH (20:00)
[2019-02-15] MEDS: LATANOPROST 0.005% 2.5 ML OPH BOTH EYES SCH (21:00)
[2019-02-15] MEDS: TERAZOSIN 5 MG CAP NGT SCH (21:00)
[2019-02-15] MEDS: OCULAR LUBRICANT 3.5 GM OPH OINT LEFT EYE SCH (21:00)
[2019-02-15] MEDS: ATORVASTATIN 40 MG TAB NGT SCH (21:00)
[2019-02-16] VITALS (27 sets, daily range): BP systolic 92–119; BP diastolic 39–61; PULSE 71–97; RESP 18–32
[2019-02-16] MEDS: AZTREONAM 1 GM in DEXTROSE 5% 50 ML IVPB SCH ×3 (00:19→21:09)
[2019-02-16] MEDS: ACCU-CHEK XX SCH ×6 (00:22→21:22)
[2019-02-16] MEDS: INSULIN ASPART [NOVOLOG] 3 ML PEN SC SCH ×6 (00:22→21:16)
[2019-02-16] MEDS: DEXTROSE 10% 1,000 ML IV SCH ×2 (04:00→23:10)
[2019-02-16] MEDS: LANSOPRAZOLE 30 MG CAP NGT SCH ×2 (06:00→17:44)
[2019-02-16] MEDS: ALBUTEROL/IPRATROPIUM (NEB) 3 ML AMP HHN SCH ×3 (08:39→19:40)
--- NOTE | 2019-02-16 08:56 | CONS ---
Assessment/Plan Assessment/Plan Assessment/Plan (Daily) Assessment and recommendations; 1. Patient admitted with sepsis due to pneumonia currently on appropriate antimicrobial regimen. E. coli isolated from sputum. 2. Hypercapnic and hypoxemic respiratory failure. 3. Chronic atrial fibrillation. 4. Worsening hypoxemia. 5. Anemia and severe thrombocytopenia. 6. Mild CHF. 7. History of cardiac valve placement. 8. Diabetes. 9. Chronic renal insufficiency. Continue current supportive care. Trial of Solu-Medrol 40 mg every 8 hours. Obtain follow-up chest x-ray in 24 hours as well. Prognosis appears poor. Consultation Date/Type/Reason Admit Date/Time Jan 17, 2019 at 15:58 Initial Consult Date 01/18/19 Type of Consult Pulmonary/critical care Patient's condition is tenuous at best. Remains awake and responsive. Currently in no distress. Requesting Provider: IVAN AKHTAR MD Date/Time of Note DATE: 02/16/19 TIME: 08:54 24 HR Interval Summary Free Text/Dictation Patient's condition remains tenuous. On higher FiO2 now. General exam; elderly male, awake and fairly responsive. Currently in no distress. Exam/Review of Systems Exam Vitals Vital Signs Date Temp Pulse Resp B/P (MAP) Pulse Ox O2 O2 Flow FiO2 Time Delivery Rate 02/16/19 76 22 98 80 08:40 02/16/19 96/56 (69) 06:00 02/16/19 98.9 04:00 02/15/19 High Flow 20:00 02/14/19 10.0 04:05 Intake and Output 02/15/19 02/15/19 02/16/19 1515:00 23:00 07:00 IntakeIntake Total 890 ml 960 ml 370 ml OutputOutput Total 240 ml 175 ml 65 ml BalanceBalance 650 ml 785 ml 305 ml Exam H EENT exam; supple neck, positive JVD. No lymphadenopathy. Midline trachea. No thyromegaly. No neck masses. Chest exam; diminished breath sounds bilaterally. S1-S2 audible, no murmurs. Irregular rhythm. There is a well-healed sternal scar. Abdomen exam; soft, no organomegaly. Bowel sounds audible. Extremity exam; no peripheral edema. Patient does have chronic skin changes. COMPUTER SECURITY COORDINATOR exam; patient is awake and responsive but appearing lethargic and exhibiting generalized weakness. Results Result Diagram: 02/16/19 0420 02/16/190 Results 24hrs Laboratory Tests Test 02/15/19 13:36 02/15/19 13:45 02/15/19 17:37 02/15/19 20:10 Bedside Glucose 101 101 91 Prothrombin Time 22.1 H Prothrombin Time 1.7 Ratio INR International 1.93 Normalized Ratio Test 02/15/19 22:03 02/16/19 00:21 02/16/19 04:20 02/16/19 04:24 Vancomycin Level 19.7 Trough Bedside Glucose 95 98 White Blood Count 9.8 # Red Blood Count 2.69 #L Hemoglobin 7.6 L Hematocrit 25.6 L Mean Corpuscular 95.2 Volume Mean Corpuscular 28.3 L Hemoglobin Mean Corpuscular 29.7 L Hemoglobin Concent Red Cell 21.2 H Distribution Width Platelet Count 89 L Mean Platelet Volume 13.1 H Immature 0.400 Granulocytes % Neutrophils % 75.0 Lymphocytes % 20.0 Monocytes % 2.1 Eosinophils % 2.2 Basophils % 0.3 Nucleated Red Blood 0.4 H Cells % Immature 0.040 H Granulocytes # Neutrophils # 7.3 Lymphocytes # 2.0 Monocytes # 0.2 L Eosinophils # 0.2 Basophils # 0.0 Nucleated Red Blood 0.0 Cells # Sodium Level 149 H Potassium Level 4.0 Chloride Level 115 H Carbon Dioxide Level 29 Anion Gap 5 Blood Urea Nitrogen 79 H Creatinine 1.94 H Est Glomerular Filtrat Rate mL/min Glucose Level 86 Calcium Level 7.9 L Medications Medication Current Medications Lactulose (Enulose) 20 gm DAILY PRN PO CONSTIPATION; Start 01/17/19 at 18:17 Acetaminophen (Tylenol Tab) 650 mg Q4H PRN PO PAIN Last administered on 02/11/19at 21:29; Admin Dose 650 MG; Start 01/17/19 at 18:17 Miscellaneous Information (Pending [facility] Order For Wound Care) This patient ramirez... PRN PRN XX WOUND CARE; Start 01/17/19 at 18:17 Albuterol/ Ipratropium (Duoneb) 3 ml Q2H RESP THERAPY PRN HHN SHORTNESS OF BREATH Last administered on 02/13/19at 05:52; Admin Dose 3 ML; Start 01/17/19 at 18:17 Bisacodyl (Dulcolax) 10 mg BID PRN PO CONSTIPATION; Start 01/17/19 at 18:17; Status Hold Folic Acid (Folic Acid) 1 mg DAILY PO Last administered on 02/15/19at 08:59; Admin Dose 1 MG; Start 01/17/19 at 18:17 Latanoprost (Xalatan) 1 drop HS BOTH EYES Last administered on 02/15/19at 21:00; Admin Dose 1 DROP; Start 01/17/19 at 18:17 Nitroglycerin (Nitroglycerin (Sl Tab) 0.4 Mg) 0.4 tab Q5M PRN SL CHEST PAIN; Start 01/17/19 at 18:17 IV Flush (NS 3 ml) 3 ml PER PROTOCOL IV ; Start 01/17/19 at 18:17 Miscellaneous Information 1 ea NOTE XX ; Start 01/17/19 at 18:17 Glucose (Glutose) 15 gm Q15M PRN PO DECREASED GLUCOSE; Start 01/17/19 at 18:17 Glucose (Glutose) 22.5 gm Q15M PRN PO DECREASED GLUCOSE; Start 01/17/19 at 18:17 Dextrose (D50w Syringe) 25 ml Q15M PRN IV DECREASED GLUCOSE Last administered on 02/14/19at 17:23; Admin Dose 25 ML; Start 01/17/19 at 18:17 Dextrose (D50w Syringe) 50 ml Q15M PRN IV DECREASED GLUCOSE; Start 01/17/19 at 18:17 Glucagon (Glucagen) 1 mg Q15M PRN IM DECREASED GLUCOSE Last administered on 02/11/19at 17:55; Admin Dose 1 MG; Start 01/17/19 at 18:17 Glucose (Glutose) 15 gm Q15M PRN BUCCAL DECREASED GLUCOSE; Start 01/17/19 at 18:17 Bisacodyl (Dulcolax Supp) 10 mg DAILY PRN [place] CONSTIPATION; Start 01/17/19 at 18:17 Zinc Acetate/ Diphenhydramine (Benadryl 2% Cr) 1 applic Q6H PRN TOP ITCHING Last administered on 01/26/19at 07:54; Admin Dose 1 APPLIC; Start 01/19/19 at 16:37 IV Flush (NS 10 ml) 10 ml PRN PRN IV IV PROTOCOL; Start 01/20/19 at 14:30 Cyanocobalamin (Vitamin B12 Inj) 1,000 mcg Q7D IM Last administered on 02/10/19 09:50; Admin Dose 1,000 MCG; Start 02/03/19 at 09:00 Metoprolol Tartrate (Lopressor) 5 mg Q4H PRN IV HR>110 Hold SBP<100; Start 01/26/19 at 14:30 Vancomycin HCl (Vanco Iv Per Pharmacy) VANCOMYCIN PER PHARMACY PER PROTOCOL XX ; Start 01/27/19 at 12:00 Enoxaparin Sodium (Lovenox) 60 mg DAILY SC Last administered on 02/03/19 08: 06; Admin Dose 60 MG; Start 01/28/19 at 09:00; Status Hold Atorvastatin Calcium (Lipitor) 40 mg QHS NGT Last administered on 02/15/19 21:00; Admin Dose 40 MG; Start 01/28/19 at 21:00 Docusate Sodium (Colace Liquid Cup) 100 mg BID NGT ; Start 01/27/19 at 22:00; Status Hold Terazosin HCl (Hytrin) 10 mg HS NGT Last administered on 02/13/19 21:27; Admin Dose 10 MG; Start 01/28/19 at 21:00 Levothyroxine Sodium (Synthroid) 125 mcg BEFORE BREAKFAST NGT Last administered on 02/15/19 06:25; Admin Dose 125 MCG; Start 01/28/19 at 07:00 Ferrous Sulfate (Feosol Liquid Cup) 300 mg WITH MEALS GTB Last administered on 02/15/19 17:42; Admin Dose 300 MG; Start 01/28/19 at 11:30 Multivitamins (Multivitamin) 30 ml DAILY GTB Last administered on 02/15/19 08:58; Admin Dose 30 ML; Start 01/28/19 at 11:00 Diagnostic Test (Pha) (Accu-Chek) 1 ea Q4 XX Last administered on 02/16/19 05:08; Admin Dose 1 EA; Start 01/28/19 at 13:00 Nystatin/ Triamcinolone Acetonide (Mycolog Oint) 1 applic BID TOP Last admi nistered on 02/15/19 21:00; Admin Dose 1 APPLIC; Start 01/28/19 at 22:30 Insulin Aspart (Novolog Insulin Pen) NOVOLOG *MILD* ALGORI... Q4 SC Last administered on 02/13/19 21:34; Admin Dose 1 UNIT; Start 01/29/19 at 05:00 Albuterol/ Ipratropium (Duoneb) 3 ml Q6HWA RESP THERAPY HHN Last administered on 02/16/19 08:39; Admin Dose 3 ML; Start 01/29/19 at 14:00 Epoetin Dae-epbx (RETACRIT(non-esrd)) 40,000 unit Mo@1700 SC Last administered on 02/10/19 18:06; Admin Dose 40,000 UNIT; Start 02/03/19 at 17:00 Insulin Glargine (Lantus) 10 units DAILY@2000 SC Last administered on 02/14/19 21:01; Admin Dose 10 UNITS; Start 01/31/19 at 20:00 Aztreonam 1 gm/ Dextrose 50 ml @ 100 mls/hr Q12 IVPB Last administered on 02/16/19 00:19; Admin Dose 100 MLS/HR; Start 02/03/19 at 21:00 Metoprolol Tartrate (Lopressor) 12.5 mg BID PO Last administered on 02/13/19 21:28; Admin Dose 12.5 MG; Start 02/05/19 at 21:00 Eye Lubricant (Refresh Plus) 1 drop QID BOTH EYES Last administered on 02/15/19 21:00; Admin Dose 1 DROP; Start 02/06/19 at 09:00 Eye Lubricant (Akwa Oint) 1 applic HS LEFT EYE Last administered on 02/15/19 21:00; Admin Dose 1 APPLIC; Start 02/06/19 at 21:00 Multi-Ingredient Ointment (Aquaphor Oint 52.5 Gm) 1 applic BID TOP Last administered on 02/15/19 21:00; Admin Dose 1 APPLIC; Start 02/06/19 at 22:40 Lansoprazole (Prevacid) 30 mg BID@0600,1800 NGT Last administered on 02/15/19 17:42; Admin Dose 30 MG; Start 02/07/19 at 18:00 Tobramycin Sulfate/Sodium Chloride (Nilesh Inhal) 300 mg BID RESP THERAPY NEB Last administered on 02/15/19 19:43; Admin Dose 300 MG; Start 02/08/19 at 09:00 Norepinephrine 250 ml @ 1.875 mls/ hr TITRATE IV ; Start 02/14/19 at 03:00 Dextrose 1,000 ml @ 40 mls/hr Q24H IV Last administered on 02/16/19at 04:00; Admin Dose 40 MLS/HR; Start 02/14/19 at 19:00 Morphine Sulfate (morphine) 0.25 mg Q4H PRN IV SEVERE PAIN LEVEL 7-10 Last administered on 02/15/19at 11:23; Admin Dose 0.25 MG; Start 02/15/19 at 11:00 Vancomycin HCl 750 mg/Dextrose 250 ml @ 125 mls/hr Q96H IVPB ; Start 02/16/19 at 23:00 LOVE HAWK February 16, 2019 08:56
[2019-02-16] MEDS: TOBRAMYCIN/0.25NS 300 MG/5 ML INHAL NEB SCH ×2 (08:57→19:41)
[2019-02-16] MEDS: BALSAM PERU/CASTOR OIL 60 GM TUBE TOP SCH ×2 (09:34→21:22)
[2019-02-16] MEDS: CARBOXYMETHYLCELLULOSE 0.5% 0.4 ML OPH BOTH EYES SCH ×4 (09:34→21:09)
[2019-02-16] MEDS: METHYLPREDNISOLONE 40 MG INJ IV SCH ×3 (09:34→23:09)
[2019-02-16] MEDS: AQUAPHOR 52.5 GM OINT TOP SCH ×2 (09:34→21:22)
[2019-02-16] MEDS: MULTIVITAMINS 30 ML CUP GTB SCH (09:34)
[2019-02-16] MEDS: FOLIC ACID 1 MG TAB PO SCH (09:35)
[2019-02-16] MEDS: FERROUS SULFATE 60 MG/ML 5ML CUP GTB SCH ×3 (09:35→17:36)
[2019-02-16] MEDS: LEVOTHYROXINE 125 MCG TAB NGT SCH (09:35)
[2019-02-16] MEDS: METOPROLOL 25 MG TAB PO SCH ×2 (09:36→21:00)
--- NOTE | 2019-02-16 09:52 | CONS ---
Assessment/Plan Assessment/Plan Assessment/Plan (Daily) 88 yo male with multiple medical problems including DM, CRF, RA, PVD and chronic afib on Eliquis who presented to [facility] 01/05/19 with severe normocytic anemia and Hg ~7. 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 DO NOT RESUSCITATE # Anemia-normocytic -Hgb trended to 7.6 from 6.6. 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 Elevated Methylmalonic acid level noted -s/p IV iron. will recheck iron panel at this time -continue vitamin b12 weekly as vitamin b12 was low normal and methylmalonic acid was elevated. Continue folate as well. -No evidence of hemolysis at this time. -Transfuse to keep Hgb > 7. 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 -This may be a pseudocyst or a precancerous pancreatic lesion. -It has been growing in size but patient is asymptomatic. EUS with biopsy is recommended and can either be done inpatient or outpatient setting. -The patient at this time is unlikely a candidate for a whipple surgery however. Patient is seen in collaboration with Dr King. Consultation Date/Type/Reason Admit Date/Time Jan 17, 2019 at 15:58 Initial Consult Date 01/18/19 Type of Consult oncology Reason for Consultation Anemia/Pancreatic mass Requesting Provider: IVAN AKHTAR MD Date/Time of Note DATE: 02/16/19 TIME: 09:52 24 HR Interval Summary Free Text/Dictation appears comfortable on supplemental oxygen by nasal cannula Hgb 7.6 today - SP 1 unit PRBC transfusion yesterday no new events reported last night dw staff Subjective hx not possible: pt critical Constitutional: requiring IVF, requiring O2 Exam/Review of Systems Exam Vitals Vital Signs Date Temp Pulse Resp B/P (MAP) Pulse Ox O2 O2 Flow FiO2 Time Delivery Rate 02/16/19 85 20 97 70 08:59 02/16/19 96/56 (69) 06:00 5/26/19 98.9 04:00 02/15/19 High Flow 20:00 02/14/19 10.0 04:05 Intake and Output 02/15/19 02/15/19 02/16/19 1515:00 23:00 07:00 IntakeIntake Total 890 ml 960 ml 370 ml OutputOutput Total 240 ml 175 ml 65 ml BalanceBalance 650 ml 785 ml 305 ml Constitutional: alert, well developed Psych: nl mood/affect Eyes: nl lids ENMT: nl external ears & nose Respiratory: diminished breath sounds (bilaterally at bases) Cardiovascular: nl pulses, other (s1s2) Gastrointestinal: soft, non-tender Musculoskeletal: muscle weakness Extremities: edema Neurological: confused Skin: other (skin dequamation ) Results Result Diagram: 02/16/1941902/16/19 042 Results 24hrs Laboratory Tests Test 02/15/19 13:36 02/15/19 13:45 02/15/19 17:37 02/15/19 20:10 Bedside Glucose 101 101 91 Prothrombin Time 22.1 H Prothrombin Time 1.7 Ratio INR International 1.93 Normalized Ratio Test 02/15/19 22:03 02/16/19 00:21 02/16/19 04:20 02/16/19 04:24 Vancomycin Level 19.7 Trough Bedside Glucose 95 98 White Blood Count 9.8 # Red Blood Count 2.69 #L Hemoglobin 7.6 L Hematocrit 25.6 L Mean Corpuscular 95.2 Volume Mean Corpuscular 28.3 L Hemoglobin Mean Corpuscular 29.7 L Hemoglobin Concent Red Cell 21.2 H Distribution Width Platelet Count 89 L Mean Platelet Volume 13.1 H Immature 0.400 Granulocytes % Neutrophils % 75.0 Lymphocytes % 20.0 Monocytes % 2.1 Eosinophils % 2.2 Basophils % 0.3 Nucleated Red Blood 0.4 H Cells % Immature 0.040 H Granulocytes # Neutrophils # 7.3 Lymphocytes # 2.0 Monocytes # 0.2 L Eosinophils # 0.2 Basophils # 0.0 Nucleated Red Blood 0.0 Cells # Sodium Level 149 H Potassium Level 4.0 Chloride Level 115 H Carbon Dioxide Level 29 Anion Gap 5 Blood Urea Nitrogen 79 H Creatinine 1.94 H Est Glomerular Filtrat Rate mL/min Glucose Level 86 Calcium Level 7.9 L Medications Medication Current Medications Lactulose (Enulose) 20 gm DAILY PRN PO CONSTIPATION; Start 01/17/19 at 18:17 Acetaminophen (Tylenol Tab) 650 mg Q4H PRN PO PAIN Last administered on 02/11/19at 21:29; Admin Dose 650 MG; Start 01/17/19 at 18:17 Miscellaneous Information (Pending [facility] Order For Wound Care) This patient ramirez... PRN PRN XX WOUND CARE; Start 01/17/19 at 18:17 Albuterol/ Ipratropium (Duoneb) 3 ml Q2H RESP THERAPY PRN HHN SHORTNESS OF BREATH Last administered on 02/13/19at 05:52; Admin Dose 3 ML; Start 01/17/19 at 18:17 Bisacodyl (Dulcolax) 10 mg BID PRN PO CONSTIPATION; Start 01/17/19 at 18:17; Status Hold Folic Acid (Folic Acid) 1 mg DAILY PO Last administered on 02/15/19at 08:59; Admin Dose 1 MG; Start 01/17/19 at 18:17 Latanoprost (Xalatan) 1 drop HS BOTH EYES Last administered on 02/15/19at 21:00; Admin Dose 1 DROP; Start 01/17/19 at 18:17 Nitroglycerin (Nitroglycerin (Sl Tab) 0.4 Mg) 0.4 tab Q5M PRN SL CHEST PAIN; Start 01/17/19 at 18:17 IV Flush (NS 3 ml) 3 ml PER PROTOCOL IV ; Start 01/17/19 at 18:17 Miscellaneous Information 1 ea NOTE XX ; Start 01/17/19 at 18:17 Glucose (Glutose) 15 gm Q15M PRN PO DECREASED GLUCOSE; Start 01/17/19 at 18:17 Glucose (Glutose) 22.5 gm Q15M PRN PO DECREASED GLUCOSE; Start 01/17/19 at 18:17 Dextrose (D50w Syringe) 25 ml Q15M PRN IV DECREASED GLUCOSE Last administered on 02/14/19at 17:23; Admin Dose 25 ML; Start 01/17/19 at 18:17 Dextrose (D50w Syringe) 50 ml Q15M PRN IV DECREASED GLUCOSE; Start 01/17/19 at 18:17 Glucagon (Glucagen) 1 mg Q15M PRN IM DECREASED GLUCOSE Last administered on 02/11/19at 17:55; Admin Dose 1 MG; Start 01/17/19 at 18:17 Glucose (Glutose) 15 gm Q15M PRN BUCCAL DECREASED GLUCOSE; Start 01/17/19 at 18:17 Bisacodyl (Dulcolax Supp) 10 mg DAILY PRN [place] CONSTIPATION; Start 01/17/19 at 18:17 Zinc Acetate/ Diphenhydramine (Benadryl 2% Cr) 1 applic Q6H PRN TOP ITCHING Last administered on 01/26/19 07:54; Admin Dose 1 APPLIC; Start 01/19/19 at 16:37 IV Flush (NS 10 ml) 10 ml PRN PRN IV IV PROTOCOL; Start 01/20/19 at 14:30 Cyanocobalamin (Vitamin B12 Inj) 1,000 mcg Q7D IM Last administered on 02/10/19at 09:50; Admin Dose 1,000 MCG; Start 02/03/19 at 09:00 Metoprolol Tartrate (Lopressor) 5 mg Q4H PRN IV HR>110 Hold SBP<100; Start 01/26/19 at 14:30 Vancomycin HCl (Vanco Iv Per Pharmacy) VANCOMYCIN PER PHARMACY PER PROTOCOL XX ; Start 01/27/19 at 12:00 Enoxaparin Sodium (Lovenox) 60 mg DAILY SC Last administered on 02/03/19at 08:06 ; Admin Dose 60 MG; Start 01/28/19 at 09:00; Status Hold Atorvastatin Calcium (Lipitor) 40 mg QHS NGT Last administered on 02/15/19 21:00; Admin Dose 40 MG; Start 01/28/19 at 21:00 Docusate Sodium (Colace Liquid Cup) 100 mg BID NGT ; Start 01/27/19 at 22:00; Status Hold Terazosin HCl (Hytrin) 10 mg HS NGT Last administered on 02/13/19 21:27; Admin Dose 10 MG; Start 01/28/19 at 21:00 Levothyroxine Sodium (Synthroid) 125 mcg BEFORE BREAKFAST NGT Last administered on 02/15/19 06:25; Admin Dose 125 MCG; Start 01/28/19 at 07:00 Ferrous Sulfate (Feosol Liquid Cup) 300 mg WITH MEALS GTB Last administered on 02/15/19at 17:42; Admin Dose 300 MG; Start 01/28/19 at 11:30 Multivitamins (Multivitamin) 30 ml DAILY GTB Last administered on 02/15/19 08:58; Admin Dose 30 ML; Start 01/28/19 at 11:00 Diagnostic Test (Pha) (Accu-Chek) 1 ea Q4 XX Last administered on 02/16/19 05:08; Admin Dose 1 EA; Start 01/28/19 at 13:00 Nystatin/ Triamcinolone Acetonide (Mycolog Oint) 1 applic BID TOP Last admini stered on 02/15/19 21:00; Admin Dose 1 APPLIC; Start 01/28/19 at 22:30 Insulin Aspart (Novolog Insulin Pen) NOVOLOG *MILD* ALGORI... Q4 SC Last administered on 02/13/19 21:34; Admin Dose 1 UNIT; Start 01/29/19 at 05:00 Albuterol/ Ipratropium (Duoneb) 3 ml Q6HWA RESP THERAPY HHN Last administered on 02/16/19 08:39; Admin Dose 3 ML; Start 01/29/19 at 14:00 Epoetin Dae-epbx (RETACRIT(non-esrd)) 40,000 unit Mo@1700 SC Last administered on 02/10/19 18:06; Admin Dose 40,000 UNIT; Start 02/03/19 at 17:00 Insulin Glargine (Lantus) 10 units DAILY@2000 SC Last administered on 02/14/19 21:01; Admin Dose 10 UNITS; Start 01/31/19 at 20:00 Aztreonam 1 gm/ Dextrose 50 ml @ 100 mls/hr Q12 IVPB Last administered on 02/16/19 00:19; Admin Dose 100 MLS/HR; Start 02/03/19 at 21:00 Metoprolol Tartrate (Lopressor) 12.5 mg BID PO Last administered on 02/13/19 21:28; Admin Dose 12.5 MG; Start 02/05/19 at 21:00 Eye Lubricant (Refresh Plus) 1 drop QID BOTH EYES Last administered on 02/15/19 21:00; Admin Dose 1 DROP; Start 02/06/19 at 09:00 Eye Lubricant (Akwa Oint) 1 applic HS LEFT EYE Last administered on 02/15/19 21:00; Admin Dose 1 APPLIC; Start 02/06/19 at 21:00 Multi-Ingredient Ointment (Aquaphor Oint 52.5 Gm) 1 applic BID TOP Last administered on 02/15/19 21:00; Admin Dose 1 APPLIC; Start 02/06/19 at 22:40 Lansoprazole (Prevacid) 30 mg BID@0600,1800 NGT Last administered on 02/15/19 17:42; Admin Dose 30 MG; Start 02/07/19 at 18:00 Tobramycin Sulfate/Sodium Chloride (Nilesh Inhal) 300 mg BID RESP THERAPY NEB Last administered on 02/16/19 08:57; Admin Dose 300 MG; Start 02/08/19 at 09:00 Norepinephrine 250 ml @ 1.875 mls/ hr TITRATE IV ; Start 02/14/19 at 03:00 Dextrose 1,000 ml @ 40 mls/hr Q24H IV Last administered on 02/16/19 04:00; Admin Dose 40 MLS/HR; Start 02/14/19 at 19:00 Morphine Sulfate (morphine) 0.25 mg Q4H PRN IV SEVERE PAIN LEVEL 7-10 Last administered on 02/15/19 11:23; Admin Dose 0.25 MG; Start 02/15/19 at 11:00 Vancomycin HCl 750 mg/Dextrose 250 ml @ 125 mls/hr Q96H IVPB ; Start 02/16/19 at 23:00 Methylprednisolone Sodium Succinate (Solu-Medrol) 40 mg Q8 IV ; Start 02/16/19 at 09:00 JESI GATES February 16, 2019 09:52
[2019-02-16] MEDS: NYSTATIN/TRIAMCINOLONE 15 GM OINT TOP SCH ×2 (09:54→21:22)
--- NOTE | 2019-02-16 10:40 | CONS ---
Assessment/Plan Assessment/Plan Hospital Course (Demo Recall) ID PROGRESS NOTE CURRENT ABX: DAY # => Vanco IV + Azactam + TOBRA INH s/p Cancidas 02/16/1941902/16/19419 24 H INTERVAL SUMMARY * Seen in the ICU -- TNS back to ICU for acute hypoxemic respiratory failure he is on high flow oxygen * CXR 02/14/19 -> Mixed interstitial and alveolar infiltrates possibly representing edema, atypical pneumonia, or pneumonitis are mildly improved MICRO/OTHER * 01/30/19 EYE CX: WOUND CULTURE Organism 1 CORYNEBACTERIUM SPECIES QUANTITY SCANT GROWTH SOURCE: EXUDATE FROM RIGHT EYE * 01/28/19 RESP CX: RESPIRATORY CULTURE Final Organism 1 ESCHERICHIA COLI QUANTITY SCANT GROWTH Organism 2 NORMAL RESPIRATORY MARIE QUANTITY 2+ E COLI M.I.C. RX --------- --- AMPICILLIN 4 S CEFAZOLIN I CEFOTAXIME S CIPROFLOXACIN >=4 R GENTAMICIN <=1 S LEVOFLOXACIN >=8 R TOBRAMYCIN <=1 S TRIMETHOPRIM/SULFAMETHOXAZOLE <=20 S * 01/27/19 BCX (-) * 01/21/19 BCX (-) * 01/17/19 BCX (+) Staph COAGULASE NEGATIVE STAPH == skin contaminant * 01/05/19 BCx (-) * Skin Cx (+)Mateus Albicans HPI/HOSPITAL COURSE * 88 yo M w/multiple-cardiopulmonary co-morbid conditions -- readmitted with sepsis likely due to pulmonary infection. * Patient s/p recent admission for PNA with radiological improvement -- now returns with probable persistent pulm infection + SIGNIFICANT YEAST DERMATOMYCOSIS GROIN -- Primary has narrowed ABX spectrum for concern YEAST infection and MICHELLE which is an effective strategy. * WBC down with empiric ABX coverage. * ROS: Limited by patient's critical illness DIAGNOSTIC IMAGING * 01/31/19 CXR: 1. Diffuse interstitial and airspace opacities throughout the lungs, slightly improved on the right and worsened on the left representing multifocal infection in the acute setting. Pulmonary edema could appear similarly. 2. Small bilateral pleural effusions, unchanged. * 01/28/19: MRI BRAIN: * 1. No acute intracranial abnormality. No intracranial hemorrhage, enhancing mass lesion, infarction or hydrocephalous. * 2. Remote prior right temporal lobe infarct with associated gliosis in the underlying white matter. No evidence of acute superimposed on chronic infarct. * 3. Mild to moderate peripheral and central cerebral volume loss, within normal limits for age. * 4. Mild to moderate patchy periventricular and subcortical white matter lesions, likely related to chronic microangiopathic changes. * 5. Remote lacunar infarct in the right cerebellar hemisphere * 01/15/19 CT CHEST: IMPRESSION: Patchy bilateral lung opacities, possibly representing multifocal pneumonia.Small to moderate bilateral pleural effusions.Status post CABG.Moderate atherosclerotic calcifications. Enlarged main pulmonary artery, possibly representing pulmonary hypertension.Mild diffuse subcutaneous edema.Mild to moderate dextroscoliosis. * 01/07/19 CXR:Cardiomegaly with interval mild increase in diffuse interstitial/air space opacities, representing edema and/or pneumonia. Small bilateral pleural effusions. * 12/16/18 2D ECHO Conclusions: * Normal left ventricular systolic function. Normal left ventricular cavity size. Moderate concentric left ventricular hypertrophy. Ejection fraction is visually estimated at 60 %. Tissue Doppler/Mitral Doppler indices are consistent with restrictive physiology with markedly elevated left atrial pressure (Stage III-IV diastolic dysfunction). * Mild right ventricular systolic dysfunction. Mild enlargement of right ventricle. * There is moderate enlargement of right atrium. * Normal appearance and function of the mitral valve with trace physiologic regurgitation. Mitral valve leaflets appear mildly thickened. Mild mitral annular calcification. Mild to moderate mitral valve regurgitation. * Normal appearance of the aortic valve. No significant aortic stenosis or insufficiency. No hemodynamically significant aortic stenosis by doppler. Aortic cusps appear mildly calcified. Mild aortic valve regurgitation. * Normal appearance of the tricuspid valve. Estimated peak PA systolic pressure 74 mmHg. There is moderate tricuspid regurgitation. PHYSICAL EXAMINATION: GENERAL: VSS, frail elderly male lethargic -- HEENT: AT, NC, anicteric NECK: Supple, CHEST: Equal chest rise bilaterally - diminishes bilateral HEART: Pulse RRR ABDOMEN: Soft / NT EXTREMITIES: Warm, dry SKIN: No rash, no diaphoresis == BILATERAL AXILLARY, GROIN, SANDY YEAST INFECTION ID ASSESSMENT 88 yo M w/multiple chronic co-morbid conditions re-admit with: 1. Recurrent ASP Pneumonitis w/ENCEPHALOPATHY -- ASP VS HCAP == w/acute hypoxic respiratory decompensation 2. 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 4. 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 Advanced rheumatoid arthritis with possibility of rheumatoid lung as well. * Patient was on Remicade and stopped using it about a year ago. 6. Hypertension w/HTN heart disease 7. Hyperlipidemia. 8. Hypothyroidism. 9. Normocytic normochromic chronic anemia 10. Bilateral groin cellulitis more likely associated with maetus, patches in groin and axilla bilaterally-> recent ABX for PNA 11. Acute on chronic renal failure likely secondary to sepsis 12. Diabetes type 2. 13. CV disease, CAD, PAD, Hx of CABGx2, carotid stent 14. Peripheral vascular disease. 15. Chronic A.Fib on anticoagulants 16. ANEMIA w/ Thrombocytopenia-> s/p EGD DECEMBER 2018 * PRBC Tx PRN 17. BPH on Hytrin 18. S/P Right epididymitis 19. Pancreatic lesion per CT-> unlikely neoplasm per oncology notes 20. Skin lesions --> s/p punch biopsy revealed allergic reaction (-)MRSA Nares ABX ALLERGIES: KNDA INVASIVES: PIV CURRENT ABX: DAY # => Vanco IV + Azactam + TOBRA INH s/p Cancidas ID RECOMMENDATIONS/PLAN: 1. Continue current ABX over the weekend + ASP precautions 2. DNR status noted which is a change from my last visit with the patient 2 weeks ago . Consultation Date/Type/Reason Admit Date/Time Jan 17, 2019 at 15:58 Initial Consult Date Requesting Provider: IVAN AKHTAR MD Date/Time of Note DATE: 02/16/19 TIME: 10:35 Exam/Review of Systems Exam Vitals Vital Signs Date Temp Pulse Resp B/P (MAP) Pulse Ox O2 O2 Flow FiO2 Time Delivery Rate 02/16/19 85 20 97 70 08:59 02/16/19 96/56 (69) 06:00 02/16/19 98.9 04:00 02/15/19 High Flow 20:00 02/14/19 10.0 04:05 Intake and Output 02/15/19 02/15/19 02/16/19 1515:00 23:00 07:00 IntakeIntake Total 890 ml 960 ml 370 ml OutputOutput Total 240 ml 175 ml 65 ml BalanceBalance 650 ml 785 ml 305 ml Results Result Diagram: 02/16/19 0420 02/16/19419 Results 24hrs Laboratory Tests Test 02/15/19 13:36 02/15/19 13:45 02/15/19 17:37 02/15/19 20:10 Bedside Glucose 101 101 91 Prothrombin Time 22.1 H Prothrombin Time 1.7 Ratio INR International 1.93 Normalized Ratio Test 02/15/19 22:03 02/16/19 00:21 02/16/19 04:20 02/16/19 04:24 Vancomycin Level 19.7 Trough Bedside Glucose 95 98 White Blood Count 9.8 # Red Blood Count 2.69 #L Hemoglobin 7.6 L Hematocrit 25.6 L Mean Corpuscular 95.2 Volume Mean Corpuscular 28.3 L Hemoglobin Mean Corpuscular 29.7 L Hemoglobin Concent Red Cell 21.2 H Distribution Width Platelet Count 89 L Mean Platelet Volume 13.1 H Immature 0.400 Granulocytes % Neutrophils % 75.0 Lymphocytes % 20.0 Monocytes % 2.1 Eosinophils % 2.2 Basophils % 0.3 Nucleated Red Blood 0.4 H Cells % Immature 0.040 H Granulocytes # Neutrophils # 7.3 Lymphocytes # 2.0 Monocytes # 0.2 L Eosinophils # 0.2 Basophils # 0.0 Nucleated Red Blood 0.0 Cells # Sodium Level 149 H Potassium Level 4.0 Chloride Level 115 H Carbon Dioxide Level 29 Anion Gap 5 Blood Urea Nitrogen 79 H Creatinine 1.94 H Est Glomerular Filtrat Rate mL/min Glucose Level 86 Calcium Level 7.9 L Test 02/16/19 09:42 Bedside Glucose 89 Medications Medication Current Medications Lactulose (Enulose) 20 gm DAILY PRN PO CONSTIPATION; Start 01/17/19 at 18:17 Acetaminophen (Tylenol Tab) 650 mg Q4H PRN PO PAIN Last administered on 02/11/19at 21:29; Admin Dose 650 MG; Start 01/17/19 at 18:17 Miscellaneous Information (Pending Santyl Order For Wound Care) This patient ramirez... PRN PRN XX WOUND CARE; Start 01/17/19 at 18:17 Albuterol/ Ipratropium (Duoneb) 3 ml Q2H RESP THERAPY PRN HHN SHORTNESS OF BREATH Last administered on 02/13/19at 05:52; Admin Dose 3 ML; Start 01/17/19 at 18:17 Bisacodyl (Dulcolax) 10 mg BID PRN PO CONSTIPATION; Start 01/17/19 at 18:17; Status Hold Folic Acid (Folic Acid) 1 mg DAILY PO Last administered on 02/16/19at 09:35; Admin Dose 1 MG; Start 01/17/19 at 18:17 Latanoprost (Xalatan) 1 drop HS BOTH EYES Last administered on 02/15/19at 21:00; Admin Dose 1 DROP; Start 01/17/19 at 18:17 Nitroglycerin (Nitroglycerin (Sl Tab) 0.4 Mg) 0.4 tab Q5M PRN SL CHEST PAIN; Start 01/17/19 at 18:17 IV Flush (NS 3 ml) 3 ml PER PROTOCOL IV ; Start 01/17/19 at 18:17 Miscellaneous Information 1 ea NOTE XX ; Start 01/17/19 at 18:17 Glucose (Glutose) 15 gm Q15M PRN PO DECREASED GLUCOSE; Start 01/17/19 at 18:17 Glucose (Glutose) 22.5 gm Q15M PRN PO DECREASED GLUCOSE; Start 01/17/19 at 18:17 Dextrose (D50w Syringe) 25 ml Q15M PRN IV DECREASED GLUCOSE Last administered on 02/14/19at 17:23; Admin Dose 25 ML; Start 01/17/19 at 18:17 Dextrose (D50w Syringe) 50 ml Q15M PRN IV DECREASED GLUCOSE; Start 01/17/19 at 18:17 Glucagon (Glucagen) 1 mg Q15M PRN IM DECREASED GLUCOSE Last administered on 02/11/19at 17:55; Admin Dose 1 MG; Start 01/17/19 at 18:17 Glucose (Glutose) 15 gm Q15M PRN BUCCAL DECREASED GLUCOSE; Start 01/17/19 at 18:17 Bisacodyl (Dulcolax Supp) 10 mg DAILY PRN DC CONSTIPATION; Start 01/17/19 at 18:17 Zinc Acetate/ Diphenhydramine (Benadryl 2% Cr) 1 applic Q6H PRN TOP ITCHING Last administered on 01/26/19at 07:54; Admin Dose 1 APPLIC; Start 01/19/19 at 16:37 IV Flush (NS 10 ml) 10 ml PRN PRN IV IV PROTOCOL; Start 01/20/19 at 14:30 Cyanocobalamin (Vitamin B12 Inj) 1,000 mcg Q7D IM Last administered on 02/10/19 09:50; Admin Dose 1,000 MCG; Start 02/03/19 at 09:00 Metoprolol Tartrate (Lopressor) 5 mg Q4H PRN IV HR>110 Hold SBP<100; Start 01/26/19 at 14:30 Vancomycin HCl (Vanco Iv Per Pharmacy) VANCOMYCIN PER PHARMACY PER PROTOCOL XX ; Start 01/27/19 at 12:00 Enoxaparin Sodium (Lovenox) 60 mg DAILY SC Last administered on 02/03/19 08:06; Admin Dose 60 MG; Start 01/28/19 at 09:00; Status Hold Atorvastatin Calcium (Lipitor) 40 mg QHS NGT Last administered on 02/15/19 21:00; Admin Dose 40 MG; Start 01/28/19 at 21:00 Docusate Sodium (Colace Liquid Cup) 100 mg BID NGT ; Start 01/27/19 at 22:00; Status Hold Terazosin HCl (Hytrin) 10 mg HS NGT Last administered on 02/13/19 21:27; Admin Dose 10 MG; Start 01/28/19 at 21:00 Levothyroxine Sodium (Synthroid) 125 mcg BEFORE BREAKFAST NGT Last adm inistered on 02/16/19 09:35; Admin Dose 125 MCG; Start 01/28/19 at 07:00 Ferrous Sulfate (Feosol Liquid Cup) 300 mg WITH MEALS GTB Last administered on 02/16/19 09:35; Admin Dose 300 MG; Start 01/28/19 at 11:30 Multivitamins (Multivitamin) 30 ml DAILY GTB Last administered on 02/16/19 09:34; Admin Dose 30 ML; Start 01/28/19 at 11:00 Diagnostic Test (Pha) (Accu-Chek) 1 ea Q4 XX Last administered on 02/16/19 09:37; Admin Dose 1 EA; Start 01/28/19 at 13:00 Nystatin/ Triamcinolone Acetonide (Mycolog Oint) 1 applic BID TOP Last administered on 02/16/19 09:54; Admin Dose 1 APPLIC; Start 01/28/19 at 22:30 Insulin Aspart (Novolog Insulin Pen) NOVOLOG *MILD* ALGORI... Q4 SC Last administered on 02/13/19 21:34; Admin Dose 1 UNIT; Start 01/29/19 at 05:00 Albuterol/ Ipratropium (Duoneb) 3 ml Q6HWA RESP THERAPY HHN Last administered on 02/16/19 08:39; Admin Dose 3 ML; Start 01/29/19 at 14:00 Epoetin Dae-epbx (RETACRIT(non-esrd)) 40,000 unit Mo@1700 SC Last administered on 02/10/19 18:06; Admin Dose 40,000 UNIT; Start 02/03/19 at 17:00 Insulin Glargine (Lantus) 10 units DAILY@2000 SC Last administered on 02/14/19 21:01; Admin Dose 10 UNITS; Start 01/31/19 at 20:00 Aztreonam 1 gm/ Dextrose 50 ml @ 100 mls/hr Q12 IVPB Last administered on 02/16/19 09:53; Admin Dose 100 MLS/HR; Start 02/03/19 at 21:00 Metoprolol Tartrate (Lopressor) 12.5 mg BID PO Last administered on 02/16/19 09:36; Admin Dose 12.5 MG; Start 02/05/19 at 21:00 Eye Lubricant (Refresh Plus) 1 drop QID BOTH EYES Last administered on 02/16/19 09:34; Admin Dose 1 DROP; Start 02/06/19 at 09:00 Eye Lubricant (Akwa Oint) 1 applic HS LEFT EYE Last administered on 02/15/19 21:00; Admin Dose 1 APPLIC; Start 02/06/19 at 21:00 Multi-Ingredient Ointment (Aquaphor Oint 52.5 Gm) 1 applic BID TOP Last administered on 02/16/19 09:34; Admin Dose 1 APPLIC; Start 02/06/19 at 22:40 Lansoprazole (Prevacid) 30 mg BID@0600,1800 NGT Last administered on 02/15/19 17:42; Admin Dose 30 MG; Start 02/07/19 at 18:00 Tobramycin Sulfate/Sodium Chloride (Nilesh Inhal) 300 mg BID RESP THERAPY NEB Last administered on 02/16/19 08:57; Admin Dose 300 MG; Start 02/08/19 at 09:00 Norepinephrine 250 ml @ 1.875 mls/ hr TITRATE IV ; Start 02/14/19 at 03:00 Dextrose 1,000 ml @ 40 mls/hr Q24H IV Last administered on 02/16/19at 04:00; Admin Dose 40 MLS/HR; Start 02/14/19 at 19:00 Morphine Sulfate (morphine) 0.25 mg Q4H PRN IV SEVERE PAIN LEVEL 7-10 Last administered on 02/15/19at 11:23; Admin Dose 0.25 MG; Start 02/15/19 at 11:00 Vancomycin HCl 750 mg/Dextrose 250 ml @ 125 mls/hr Q96H IVPB ; Start 02/16/19 at 23:00 Methylprednisolone Sodium Succinate (Solu-Medrol) 40 mg Q8 IV Last administered on 02/16/19at 09:34; Admin Dose 40 MG; Start 02/16/19 at 09:00 NEDA ENRIQUEZ NP February 16, 2019 10:40
--- NOTE | 2019-02-16 11:09 | CONS ---
Assessment/Plan Assessment/Plan Hospital Course 88 yo M with multiple comorbidities who initially presented for evaluation of hiccups. He was noted to become acutely altered... for which neurology is consulted. He has been transferred to the ICU on several occasions due to ams in the context of respiratory distress and ? seizures.. On 02/14, he was transferred to the ICU for hypotension. The clinical picture suggests an acute toxic-metabolic encephalopathy.. Meningoencephalitis is, though, not entirely excluded. MRI brain is without acute ischemia, though notable for chronic infarcts. EEG was without ongoing epileptiform activity LP for CSF valuation was declined by medical decision makers. P: OK to Cont Keppra 500 BID for now Ativan IV PRN prolonged seizure (> 5 min) Agree w/ ASA/Lipitor daily pending the above Limit sedating medications where possible Other medical management per primary Will follow clinically Consultation Date/Type/Reason Admit Date/Time Jan 17, 2019 at 15:58 Type of Consult Neurology Reason for Consultation ams; eval for stroke Requesting Provider: IVAN AKHTAR MD Date/Time of Note DATE: 02/16/19 TIME: 11:09 24 HR Interval Summary Free Text/Dictation Continues critical care. Exam Vital Signs Vitals Vital Signs Date Temp Pulse Resp B/P (MAP) Pulse Ox O2 O2 Flow FiO2 Time Delivery Rate 02/16/19 85 20 97 70 08:59 02/16/19 96/56 (69) 06:00 02/16/19 98.9 04:00 02/15/19 High Flow 20:00 02/14/19 10.0 04:05 Intake and Output 02/15/19 02/15/19 02/16/19 1515:00 23:00 07:00 IntakeIntake Total 890 ml 960 ml 370 ml OutputOutput Total 240 ml 175 ml 65 ml BalanceBalance 650 ml 785 ml 305 ml Exam PE: Gen Appearance: No Apparent Distress HEENT: Normocephalic Cardiovascular: Regular rate Respiratory: respirations labored, symmetric Abdomen: Soft Extremities: Dry, skin peeling NE: The patient was lethargic. Nonverbal. Unable to track or follow simple appendicular commands. Cranial nerve examination was limited by mental status. Pupils were equal and reactive to light. There was no afferent pupillary defect. Funduscopic examina tion was limited. Face was grossly symmetric. Tone was normal. Muscle bulk was normal. I did not see fasciculations. The patient withdrew his extremities to noxious stimuli. Coordination and gait testing was limited by mental status. Arm and leg reflexes were within normal limits and symmetric. Gray's sign was absent. Plantar responses were flexor. NEGRA CORONA NP February 16, 2019 11:09
--- NOTE | 2019-02-16 11:18 | CONS ---
Assessment/Plan Assessment/Plan Assessment/Plan (Daily) Impression: 1. Severe anemia likely due to chronic disease, last work up while admitted to [facility] about a week ago was neg for GI bleeding, including EGD/colon which was done -s/p EGD and colonoscopy by Dr Frost 01/09/19 which didn't find an obvious GI etiology to explain anemia. AVM or a small lesion could be missed due to poor prep. Pt likely needs capsule endoscopy -Neg fob, elevate retic, Low iron, tibc, [place] [id number] 2. Cystic lesion along pancreas body - 4.3 cm cystic lesion along the pancreas body, enlarged since 10/10/2012 (previously 2.4 cm). 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 -CEA wnl 3. Severe gastritis 4. Hemorrhoids 5. Hital hernia 6. A fib, -eliquis was stopped 01/06 during previous admission, on ASA 7. COPD 8. HTN 9. Hypothyroidism 10. Bilateral groin cellulitis 11. Rheumatoid arthritis. 12. Diabetes mellitus. 13. Peripheral vascular disease. 14. CHF 15. 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 Sepsis secondary to pneumonia 18. Encephalopathy secondary to sepsis 19. Hypothermia 20. Coagulopathy -INR 1.77 21. Positive wound culture -CORYNEBACTERIUM SPECIES 22 extensive rash all over the body including the face 23 respiratory failure Plan: Family has consented to PEG but pt is not stable Patient is volume overload and is on 40 % O2. Once his condition is stable will proceed with placement of G-tube will need outpatient EUS for evaluation of pancreatic cystic lesion that is enlarging Continue present care Consultation Date/Type/Reason Admit Date/Time Jan 17, 2019 at 15:58 Initial Consult Date 01/18/19 Type of Consult GI Requesting Provider: IVAN AKHTAR MD Date/Time of Note DATE: 02/16/19 TIME: 11:16 24 HR Interval Summary Subjective hx not possible: pt non-verbal, pt critical status Exam/Review of Systems Exam Vitals Vital Signs Date Temp Pulse Resp B/P (MAP) Pulse Ox O2 O2 Flow FiO2 Time Delivery Rate 02/16/19 85 20 97 70 08:59 02/16/19 96/56 (69) 06:00 02/16/19 98.9 04:00 02/15/19 High Flow 20:00 02/14/19 10.0 04:05 Intake and Output 02/15/19 02/15/19 02/16/19 1515:00 23:00 07:00 IntakeIntake Total 890 ml 960 ml 370 ml OutputOutput Total 240 ml 175 ml 65 ml BalanceBalance 650 ml 785 ml 305 ml Constitutional: non-verbal Head: normocephalic, atraumatic ENMT: nl external ears & nose, nl lips & teeth, nl nasal mucosa & septum Neck: supple, non-tender Respiratory: clear to auscultation, normal air movement Cardiovascular: regular rate and rhythm, nl pulses Gastrointestinal: soft, bowel sounds Results Result Diagram: 02/16/19 04202/16/19 0420 Results 24hrs Laboratory Tests Test 02/15/19 13:36 02/15/19 13:45 02/15/19 17:37 02/15/19 20:10 Bedside Glucose 101 101 91 Prothrombin Time 22.1 H Prothrombin Time 1.7 Ratio INR International 1.93 Normalized Ratio Test 02/15/19 22:03 02/16/19 00:21 02/16/19 04:20 02/16/19 04:24 Vancomycin Level 19.7 Trough Bedside Glucose 95 98 White Blood Count 9.8 # Red Blood Count 2.69 #L Hemoglobin 7.6 L Hematocrit 25.6 L Mean Corpuscular 95.2 Volume Mean Corpuscular 28.3 L Hemoglobin Mean Corpuscular 29.7 L Hemoglobin Concent Red Cell 21.2 H Distribution Width Platelet Count 89 L Mean Platelet Volume 13.1 H Immature 0.400 Granulocytes % Neutrophils % 75.0 Lymphocytes % 20.0 Monocytes % 2.1 Eosinophils % 2.2 Basophils % 0.3 Nucleated Red Blood 0.4 H Cells % Immature 0.040 H Granulocytes # Neutrophils # 7.3 Lymphocytes # 2.0 Monocytes # 0.2 L Eosinophils # 0.2 Basophils # 0.0 Nucleated Red Blood 0.0 Cells # Sodium Level 149 H Potassium Level 4.0 Chloride Level 115 H Carbon Dioxide Level 29 Anion Gap 5 Blood Urea Nitrogen 79 H Creatinine 1.94 H Est Glomerular Filtrat Rate mL/min Glucose Level 86 Calcium Level 7.9 L Test 02/16/19 09:42 Bedside Glucose 89 Medications Medication Current Medications Lactulose (Enulose) 20 gm DAILY PRN PO CONSTIPATION; Start 01/17/19 at 18:17 Acetaminophen (Tylenol Tab) 650 mg Q4H PRN PO PAIN Last administered on 02/11/19at 21:29; Admin Dose 650 MG; Start 01/17/19 at 18:17 Miscellaneous Information (Pending [facility] Order For Wound Care) This patient ramirez... PRN PRN XX WOUND CARE; Start 01/17/19 at 18:17 Albuterol/ Ipratropium (Duoneb) 3 ml Q2H RESP THERAPY PRN HHN SHORTNESS OF BREATH Last administered on 02/13/19at 05:52; Admin Dose 3 ML; Start 01/17/19 at 18:17 Bisacodyl (Dulcolax) 10 mg BID PRN PO CONSTIPATION; Start 01/17/19 at 18:17; Status Hold Folic Acid (Folic Acid) 1 mg DAILY PO Last administered on 02/16/19at 09:35; Admin Dose 1 MG; Start 01/17/19 at 18:17 Latanoprost (Xalatan) 1 drop HS BOTH EYES Last administered on 02/15/19at 21:00; Admin Dose 1 DROP; Start 01/17/19 at 18:17 Nitroglycerin (Nitroglycerin (Sl Tab) 0.4 Mg) 0.4 tab Q5M PRN SL CHEST PAIN; Start 01/17/19 at 18:17 IV Flush (NS 3 ml) 3 ml PER PROTOCOL IV ; Start 01/17/19 at 18:17 Miscellaneous Information 1 ea NOTE XX ; Start 01/17/19 at 18:17 Glucose (Glutose) 15 gm Q15M PRN PO DECREASED GLUCOSE; Start 01/17/19 at 18:17 Glucose (Glutose) 22.5 gm Q15M PRN PO DECREASED GLUCOSE; Start 01/17/19 at 18:17 Dextrose (D50w Syringe) 25 ml Q15M PRN IV DECREASED GLUCOSE Last administered on 02/14/19at 17:23; Admin Dose 25 ML; Start 01/17/19 at 18:17 Dextrose (D50w Syringe) 50 ml Q15M PRN IV DECREASED GLUCOSE; Start 01/17/19 at 18:17 Glucagon (Glucagen) 1 mg Q15M PRN IM DECREASED GLUCOSE Last administered on 02/11/19at 17:55; Admin Dose 1 MG; Start 01/17/19 at 18:17 Glucose (Glutose) 15 gm Q15M PRN BUCCAL DECREASED GLUCOSE; Start 01/17/19 at 18:17 Bisacodyl (Dulcolax Supp) 10 mg DAILY PRN IN CONSTIPATION; Start 01/17/19 at 18:17 Zinc Acetate/ Diphenhydramine (Benadryl 2% Cr) 1 applic Q6H PRN TOP ITCHING Last administered on 01/26/19at 07:54; Admin Dose 1 APPLIC; Start 01/19/19 at 16:37 IV Flush (NS 10 ml) 10 ml PRN PRN IV IV PROTOCOL; Start 01/20/19 at 14:30 Cyanocobalamin (Vitamin B12 Inj) 1,000 mcg Q7D IM Last administered on 02/10/19at 09:50; Admin Dose 1,000 MCG; Start 02/03/19 at 09:00 Metoprolol Tartrate (Lopressor) 5 mg Q4H PRN IV HR>110 Hold SBP<100; Start 01/26/19 at 14:30 Vancomycin HCl (Vanco Iv Per Pharmacy) VANCOMYCIN PER PHARMACY PER PROTOCOL XX ; Start 01/27/19 at 12:00 Enoxaparin Sodium (Lovenox) 60 mg DAILY SC Last administered on 02/03/19at 08:06; Admin Dose 60 MG; Start 01/28/19 at 09:00; Status Hold Atorvastatin Calcium (Lipitor) 40 mg QHS NGT Last administered on 02/15/19at 21:00; Admin Dose 40 MG; Start 01/28/19 at 21:00 Docusate Sodium (Colace Liquid Cup) 100 mg BID NGT ; Start 01/27/19 at 22:00; Status Hold Terazosin HCl (Hytrin) 10 mg HS NGT Last administered on 02/13/19at 21:27; Admin Dose 10 MG; Start 01/28/19 at 21:00 Levothyroxine Sodium (Synthroid) 125 mcg BEFORE BREAKFAST NGT Last administered on 02/16/19at 09:35; Admin Dose 125 MCG; Start 01/28/19 at 07:00 Ferrous Sulfate (Feosol Liquid Cup) 300 mg WITH MEALS GTB Last administered on 02/16/19at 09:35; Admin Dose 300 MG; Start 01/28/19 at 11:30 Multivitamins (Multivitamin) 30 ml DAILY GTB Last administered on 02/16/19 09:34; Admin Dose 30 ML; Start 01/28/19 at 11:00 Diagnostic Test (Pha) (Accu-Chek) 1 ea Q4 XX Last administered on 02/16/19 09:37; Admin Dose 1 EA; Start 01/28/19 at 13:00 Nystatin/ Triamcinolone Acetonide (Mycolog Oint) 1 applic BID TOP Last administered on 02/16/19 09:54; Admin Dose 1 APPLIC; Start 01/28/19 at 22:30 Insulin Aspart (Novolog Insulin Pen) NOVOLOG *MILD* ALGORI... Q4 SC Last administered on 02/13/19 21:34; Admin Dose 1 UNIT; Start 01/29/19 at 05:00 Albuterol/ Ipratropium (Duoneb) 3 ml Q6HWA RESP THERAPY HHN Last administered on 02/16/19 08:39; Admin Dose 3 ML; Start 01/29/19 at 14:00 Epoetin Dae-epbx (RETACRIT(non-esrd)) 40,000 unit Mo@1700 SC Last administered on 02/10/19 18:06; Admin Dose 40,000 UNIT; Start 02/03/19 at 17:00 Insulin Glargine (Lantus) 10 units DAILY@2000 SC Last administered on 02/14/19 21:01; Admin Dose 10 UNITS; Start 01/31/19 at 20:00 Aztreonam 1 gm/ Dextrose 50 ml @ 100 mls/hr Q12 IVPB Last administered on 02/16/19 09:53; Admin Dose 100 MLS/HR; Start 02/03/19 at 21:00 Metoprolol Tartrate (Lopressor) 12.5 mg BID PO Last administered on 02/16/19 09:36; Admin Dose 12.5 MG; Start 02/05/19 at 21:00 Eye Lubricant (Refresh Plus) 1 drop QID BOTH EYES Last administered on 02/16/19 09:34; Admin Dose 1 DROP; Start 02/06/19 at 09:00 Eye Lubricant (Akwa Oint) 1 applic HS LEFT EYE Last administered on 02/15/19 2 1:00; Admin Dose 1 APPLIC; Start 02/06/19 at 21:00 Multi-Ingredient Ointment (Aquaphor Oint 52.5 Gm) 1 applic BID TOP Last administered on 02/16/19 09:34; Admin Dose 1 APPLIC; Start 02/06/19 at 22:40 Lansoprazole (Prevacid) 30 mg BID@0600,1800 NGT Last administered on 02/15/19 17:42; Admin Dose 30 MG; Start 02/07/19 at 18:00 Tobramycin Sulfate/Sodium Chloride (Nilesh Inhal) 300 mg BID RESP THERAPY NEB Last administered on 02/16/19 08:57; Admin Dose 300 MG; Start 02/08/19 at 09:00 Norepinephrine 250 ml @ 1.875 mls/ hr TITRATE IV ; Start 02/14/19 at 03:00 Dextrose 1,000 ml @ 40 mls/hr Q24H IV Last administered on 02/16/19 04:00; Admin Dose 40 MLS/HR; Start 02/14/19 at 19:00 Morphine Sulfate (morphine) 0.25 mg Q4H PRN IV SEVERE PAIN LEVEL 7-10 Last administered on 02/15/19 11:23; Admin Dose 0.25 MG; Start 02/15/19 at 11:00 Vancomycin HCl 750 mg/Dextrose 250 ml @ 125 mls/hr Q96H IVPB ; Start 02/16/19 at 23:00 Methylprednisolone Sodium Succinate (Solu-Medrol) 40 mg Q8 IV Last administered on 02/16/19 09:34; Admin Dose 40 MG; Start 02/16/19 at 09:00 GEETA CRUZ MD February 16, 2019 11:18
--- NOTE | 2019-02-16 12:01 | PN ---
Date/Time of Note Date/Time of Note DATE: 02/16/19 TIME: 12:01 Assessment/Plan VTE [place]axis [place] [facility] [place]: 10 [place] [facility] [place] Yes Pharmacological prophylaxis: NA/contraindicated Pharm contraindication: anticoag not tolerated Lines/Catheters IV Catheter Type (from [facility]): Central Line Central line still needed: Yes Urinary Cath still in place: Yes Reason Cath still needed: urinary retention Assessment/Plan Hospital Course 1. Sepsis, Lactic acid is elevated. Pt is hypotensive, low core temperature. Urine is cloudy, pos for UTI. 2. Severe anemia 3. Chronic renal failure likely secondary to sepsis, 4. Hypertension. 5. Hyperlipidemia. 6. Hypothyroidism. 7. Normocytic normochromic chronic anemia with recent hemoglobin drop. 8. Bilateral groin cellulitis more likely associated with mateus, patches in groin and axilla bilaterally. skin peeling 9. History of rheumatoid arthritis with joint deformities. 10. Diabetes type 2. 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 Peripheral vascular disease. 13. Chronic a.fib 14. right arm edema, better 15. Neoplasm per CT abdomen. 4.3 cm cystic lesion along the pancreas body, enlarged since 10/10/2012 (previously 2.4 cm). 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 16. Possible allergic skin reaction, biopsy is obtained 17. altered mental status delirium vs stroke, 18. Hypernatremia 149 19. Eye muscle paralysis. Assessment/Plan -c/w ICU care -c/w restraints -GT with water flashes -DNR status -poor prognosis -pending respiratory failure, increased Vapotherm settings -dr De Leon on case, pt is on Vapoterm 70% -Dr Robertson, cardiology -Afib controlled -skin care -c/w rinaldi -sample UA pos for UTI -hold BP meds -Levophed on standing, still off -albumin to support -Dr Gao on case, pt need comfort measures -creatinine decreased -ID Jennyo tobra, Azetreonam family support Result Diagram: 02/16/1941902/16/19419 Results 24hrs Laboratory Tests Test 02/15/19 13:36 02/15/19 13:45 02/15/19 17:37 02/15/19 20:10 Bedside Glucose 101 101 91 Prothrombin Time 22.1 H Prothrombin Time 1.7 Ratio INR International 1.93 Normalized Ratio Test 02/15/19 22:03 02/16/19 00:21 02/16/19 04:20 02/16/19 04:24 Vancomycin Level 19.7 Trough Bedside Glucose 95 98 White Blood Count 9.8 # Red Blood Count 2.69 #L Hemoglobin 7.6 L Hematocrit 25.6 L Mean Corpuscular 95.2 Volume Mean Corpuscular 28.3 L Hemoglobin Mean Corpuscular 29.7 L Hemoglobin Concent Red Cell 21.2 H Distribution Width Platelet Count 89 L Mean Platelet Volume 13.1 H Immature 0.400 Granulocytes % Neutrophils % 75.0 Lymphocytes % 20.0 Monocytes % 2.1 Eosinophils % 2.2 Basophils % 0.3 Nucleated Red Blood 0.4 H Cells % Immature 0.040 H Granulocytes # Neutrophils # 7.3 Lymphocytes # 2.0 Monocytes # 0.2 L Eosinophils # 0.2 Basophils # 0.0 Nucleated Red Blood 0.0 Cells # Sodium Level 149 H Potassium Level 4.0 Chloride Level 115 H Carbon Dioxide Level 29 Anion Gap 5 Blood Urea Nitrogen 79 H Creatinine 1.94 H Est Glomerular Filtrat Rate mL/min Glucose Level 86 Calcium Level 7.9 L Test 02/16/19 09:42 Bedside Glucose 89 Subjective 24 Hr Interval Summary Free Text/Dictation nodded his head Subjective hx not possible: pt critical status Exam/Review of Systems Exam Vitals Vital Signs Date Temp Pulse Resp B/P (MAP) Pulse Ox O2 O2 Flow FiO2 Time Delivery Rate 02/16/19 85 20 97 70 08:59 02/16/19 96/56 (69) 06:00 02/16/19 98.9 04:00 02/15/19 High Flow 20:00 02/14/19 10.0 04:05 Intake and Output 02/15/19 02/15/19 02/16/19 1515:00 23:00 07:00 IntakeIntake Total 890 ml 960 ml 370 ml OutputOutput Total 240 ml 175 ml 65 ml BalanceBalance 650 ml 785 ml 305 ml Constitutional: alert, distress, frail Eyes: other (decreased movement) Cardiovascular: regular rate and rhythm Gastrointestinal: soft Musculoskeletal: muscle weakness Skin: other (peeling) Additional Comments central subclavian cath Results Results 24hrs Laboratory Tests Test 02/15/19 13:36 02/15/19 13:45 02/15/19 17:37 02/15/19 20:10 Bedside Glucose 101 101 91 Prothrombin Time 22.1 H Prothrombin Time 1.7 Ratio INR International 1.93 Normalized Ratio Test 02/15/19 22:03 02/16/19 00:21 02/16/19 04:20 02/16/19 04:24 Vancomycin Level 19.7 Trough Bedside Glucose 95 98 White Blood Count 9.8 # Red Blood Count 2.69 #L Hemoglobin 7.6 L Hematocrit 25.6 L Mean Corpuscular 95.2 Volume Mean Corpuscular 28.3 L Hemoglobin Mean Corpuscular 29.7 L Hemoglobin Concent Red Cell 21.2 H Distribution Width Platelet Count 89 L Mean Platelet Volume 13.1 H Immature 0.400 Granulocytes % Neutrophils % 75.0 Lymphocytes % 20.0 Monocytes % 2.1 Eosinophils % 2.2 Basophils % 0.3 Nucleated Red Blood 0.4 H Cells % Immature 0.040 H Granulocytes # Neutrophils # 7.3 Lymphocytes # 2.0 Monocytes # 0.2 L Eosinophils # 0.2 Basophils # 0.0 Nucleated Red Blood 0.0 Cells # Sodium Level 149 H Potassium Level 4.0 Chloride Level 115 H Carbon Dioxide Level 29 Anion Gap 5 Blood Urea Nitrogen 79 H Creatinine 1.94 H Est Glomerular Filtrat Rate mL/min Glucose Level 86 Calcium Level 7.9 L Test 02/16/19 09:42 Bedside Glucose 89 Medications Medication Current Medications Lactulose (Enulose) 20 gm DAILY PRN PO CONSTIPATION; Start 01/17/19 at 18:17 Acetaminophen (Tylenol Tab) 650 mg Q4H PRN PO PAIN Last administered on 02/11/19at 21:29; Admin Dose 650 MG; Start 01/17/19 at 18:17 Miscellaneous Information (Pending [facility] Order For Wound Care) This patient ramirez... PRN PRN XX WOUND CARE; Start 01/17/19 at 18:17 Albuterol/ Ipratropium (Duoneb) 3 ml Q2H RESP THERAPY PRN HHN SHORTNESS OF BREATH Last administered on 02/13/19at 05:52; Admin Dose 3 ML; Start 01/17/19 at 18:17 Bisacodyl (Dulcolax) 10 mg BID PRN PO CONSTIPATION; Start 01/17/19 at 18:17; Status Hold Folic Acid (Folic Acid) 1 mg DAILY PO Last administered on 02/16/19at 09:35; Admin Dose 1 MG; Start 01/17/19 at 18:17 Latanoprost (Xalatan) 1 drop HS BOTH EYES Last administered on 02/15/19at 21:00; Admin Dose 1 DROP; Start 01/17/19 at 18:17 Nitroglycerin (Nitroglycerin (Sl Tab) 0.4 Mg) 0.4 tab Q5M PRN SL CHEST PAIN; Start 01/17/19 at 18:17 IV Flush (NS 3 ml) 3 ml PER PROTOCOL IV ; Start 01/17/19 at 18:17 Miscellaneous Information 1 ea NOTE XX ; Start 01/17/19 at 18:17 Glucose (Glutose) 15 gm Q15M PRN PO DECREASED GLUCOSE; Start 01/17/19 at 18:17 Glucose (Glutose) 22.5 gm Q15M PRN PO DECREASED GLUCOSE; Start 01/17/19 at 18:17 Dextrose (D50w Syringe) 25 ml Q15M PRN IV DECREASED GLUCOSE Last administered on 02/14/19at 17:23; Admin Dose 25 ML; Start 01/17/19 at 18:17 Dextrose (D50w Syringe) 50 ml Q15M PRN IV DECREASED GLUCOSE; Start 01/17/19 at 18:17 Glucagon (Glucagen) 1 mg Q15M PRN IM DECREASED GLUCOSE Last administered on 02/11/19at 17:55; Admin Dose 1 MG; Start 01/17/19 at 18:17 Glucose (Glutose) 15 gm Q15M PRN BUCCAL DECREASED GLUCOSE; Start 01/17/19 at 18:17 Bisacodyl (Dulcolax Supp) 10 mg DAILY PRN AL CONSTIPATION; Start 01/17/19 at 18:17 Zinc Acetate/ Diphenhydramine (Benadryl 2% Cr) 1 applic Q6H PRN TOP ITCHING Last administered on 01/26/19at 07:54; Admin Dose 1 APPLIC; Start 01/19/19 at 16:37 IV Flush (NS 10 ml) 10 ml PRN PRN IV IV PROTOCOL; Start 01/20/19 at 14:30 Cyanocobalamin (Vitamin B12 Inj) 1,000 mcg Q7D IM Last administered on 02/10/19 09:50; Admin Dose 1,000 MCG; Start 02/03/19 at 09:00 Metoprolol Tartrate (Lopressor) 5 mg Q4H PRN IV HR>110 Hold SBP<100; Start 01/26/19 at 14:30 Vancomycin HCl (Vanco Iv Per Pharmacy) VANCOMYCIN PER PHARMACY PER PROTOCOL XX ; Start 01/27/19 at 12:00 Enoxaparin Sodium (Lovenox) 60 mg DAILY SC Last administered on 02/03/19 08: 06; Admin Dose 60 MG; Start 01/28/19 at 09:00; Status Hold Atorvastatin Calcium (Lipitor) 40 mg QHS NGT Last administered on 02/15/19 21:00; Admin Dose 40 MG; Start 01/28/19 at 21:00 Docusate Sodium (Colace Liquid Cup) 100 mg BID NGT ; Start 01/27/19 at 22:00; Status Hold Terazosin HCl (Hytrin) 10 mg HS NGT Last administered on 02/13/19 21:27; Admin Dose 10 MG; Start 01/28/19 at 21:00 Levothyroxine Sodium (Synthroid) 125 mcg BEFORE BREAKFAST NGT Last administered on 02/16/19 09:35; Admin Dose 125 MCG; Start 01/28/19 at 07:00 Ferrous Sulfate (Feosol Liquid Cup) 300 mg WITH MEALS GTB Last administered on 02/16/19 09:35; Admin Dose 300 MG; Start 01/28/19 at 11:30 Multivitamins (Multivitamin) 30 ml DAILY GTB Last administered on 02/16/19 09:34; Admin Dose 30 ML; Start 01/28/19 at 11:00 Diagnostic Test (Pha) (Accu-Chek) 1 ea Q4 XX Last administered on 02/16/19 09:37; Admin Dose 1 EA; Start 01/28/19 at 13:00 Nystatin/ Triamcinolone Acetonide (Mycolog Oint) 1 applic BID TOP Last admi nistered on 02/16/19 09:54; Admin Dose 1 APPLIC; Start 01/28/19 at 22:30 Insulin Aspart (Novolog Insulin Pen) NOVOLOG *MILD* ALGORI... Q4 SC Last administered on 02/13/19 21:34; Admin Dose 1 UNIT; Start 01/29/19 at 05:00 Albuterol/ Ipratropium (Duoneb) 3 ml Q6HWA RESP THERAPY HHN Last administered on 02/16/19 08:39; Admin Dose 3 ML; Start 01/29/19 at 14:00 Epoetin Dae-epbx (RETACRIT(non-esrd)) 40,000 unit Mo@1700 SC Last administered on 02/10/19 18:06; Admin Dose 40,000 UNIT; Start 02/03/19 at 17:00 Insulin Glargine (Lantus) 10 units DAILY@2000 SC Last administered on 02/14/19 21:01; Admin Dose 10 UNITS; Start 01/31/19 at 20:00 Aztreonam 1 gm/ Dextrose 50 ml @ 100 mls/hr Q12 IVPB Last administered on 02/16/19 09:53; Admin Dose 100 MLS/HR; Start 02/03/19 at 21:00 Metoprolol Tartrate (Lopressor) 12.5 mg BID PO Last administered on 02/16/19 09:36; Admin Dose 12.5 MG; Start 02/05/19 at 21:00 Eye Lubricant (Refresh Plus) 1 drop QID BOTH EYES Last administered on 02/16/19 09:34; Admin Dose 1 DROP; Start 02/06/19 at 09:00 Eye Lubricant (Akwa Oint) 1 applic HS LEFT EYE Last administered on 02/15/19 21:00; Admin Dose 1 APPLIC; Start 02/06/19 at 21:00 Multi-Ingredient Ointment (Aquaphor Oint 52.5 Gm) 1 applic BID TOP Last administered on 02/16/19 09:34; Admin Dose 1 APPLIC; Start 02/06/19 at 22:40 Lansoprazole (Prevacid) 30 mg BID@0600,1800 NGT Last administered on 02/15/19 17:42; Admin Dose 30 MG; Start 02/07/19 at 18:00 Tobramycin Sulfate/Sodium Chloride (Nilesh Inhal) 300 mg BID RESP THERAPY NEB Last administered on 02/16/19 08:57; Admin Dose 300 MG; Start 02/08/19 at 09:00 Norepinephrine 250 ml @ 1.875 mls/ hr TITRATE IV ; Start 02/14/19 at 03:00 Dextrose 1,000 ml @ 40 mls/hr Q24H IV Last administered on 02/16/19at 04:00; Admin Dose 40 MLS/HR; Start 02/14/19 at 19:00 Morphine Sulfate (morphine) 0.25 mg Q4H PRN IV SEVERE PAIN LEVEL 7-10 Last administered on 02/15/19at 11:23; Admin Dose 0.25 MG; Start 02/15/19 at 11:00 Vancomycin HCl 750 mg/Dextrose 250 ml @ 125 mls/hr Q96H IVPB ; Start 02/16/19 at 23:00 Methylprednisolone Sodium Succinate (Solu-Medrol) 40 mg Q8 IV Last administered on 02/16/19at 09:34; Admin Dose 40 MG; Start 02/16/19 at 09:00 COOPER CARO February 16, 2019 12:01
--- NOTE | 2019-02-16 12:52 | CONS ---
Assessment/Plan Assessment/Plan Hospital Course (Demo Recall) IMPRESSION: 1. Atrial fibrillation, currently rate controlled.-off systemic anticoagulation due to anemia. 2. Possible congestive heart failure by chest x-ray, which will be diastolic, acute on chronic by most recent echo with an EF of 60%. 3. Tricuspid regurgitation, moderate by most recent echo. 4. Acute on chronic renal failure-mild worsening 5. Possible pneumonia. 6. History of coronary artery disease, status post coronary artery bypass graft surgery. 7. Dyslipidemia. 8. Rheumatoid arthritis. 9. Groin cellulitis. 10. Anemia-worsening again today. s/p endoscopy during this admission 11. Diabetes mellitus. 12. Sepsis/leukocytosis 14. abdominal mass 15. Rash-all over body with skin chaffing at this time, probable drug reaction- significantly improved 16. Encephalopathy-ongoing. MRI negative for acute CVA 17. coagulopathy-ongoing and mildly increased Recc: -Now transferred back to ICU due to unstable BP -serial ecg's -Continue statin -Continue broad spectrum abx's and f/u cx data -Ongoing GI eval of abd mass -ongoing derm eval of rash and continue topical treatment -BB as tolerated only and was held today -off anticoagulation secondary to anemia/GIB requiring trasnfusions -transfuse PRBC's as necessary -lasix currently held due to renal failure/borderline BP Consultation Date/Type/Reason Admit Date/Time Jan 17, 2019 at 15:58 Initial Consult Date 01/18/19 Type of Consult Cardiology Reason for Consultation AF Requesting Provider: IVAN AKHTAR MD Date/Time of Note DATE: 02/16/19 TIME: 12:49 Exam/Review of Systems Vital Signs Vitals Vital Signs Date Temp Pulse Resp B/P (MAP) Pulse Ox O2 O2 Flow FiO2 Time Delivery Rate 02/16/19 85 20 97 70 08:59 02/16/19 96/56 (69) 06:00 02/16/19 98.9 04:00 02/15/19 High Flow 20:00 02/14/19 10.0 04:05 Intake and Output 02/15/19 02/15/19 02/16/19 1515:00 23:00 07:00 IntakeIntake Total 890 ml 960 ml 370 ml OutputOutput Total 240 ml 175 ml 65 ml BalanceBalance 650 ml 785 ml 305 ml Exam Exam Review of Systems: CONSTITUTIONAL: No fevers, chills. PULMONARY: ongoing sob CARDIOVASCULAR: No chest pain/palpitations GASTROINTESTINAL: No nausea/vomiting. GENITOURINARY: No hematuria/dysuria. MUSCULOSKELETAL: No myagias/arthalgias. PSYCHIATRIC: The patient denies depression. NEUROLOGIC: encephalopathic but some improvement Constitutional: other (a little more alert today) Head: normocephalic ENMT: mucosa pink and moist Neck: supple, jvd (9 cm water) Respiratory: diminished breath sounds (at bases/B) Cardiovascular: irregular rhythm Gastrointestinal: soft Musculoskeletal: muscle weakness (generalized) Extremities: edema (trace/B) Neurological: lethargic (but some mild improvement), other Labs Result Diagram: 02/16/19 04202/16/19 0420 Results 24hrs Laboratory Tests Test 02/15/19 13:36 02/15/19 13:45 02/15/19 17:37 02/15/19 20:10 Bedside Glucose 101 101 91 Prothrombin Time 22.1 H Prothrombin Time 1.7 Ratio INR International 1.93 Normalized Ratio Test 02/15/19 22:03 02/16/19 00:21 02/16/19 04:20 02/16/19 04:24 Vancomycin Level 19.7 Trough Bedside Glucose 95 98 White Blood Count 9.8 # Red Blood Count 2.69 #L Hemoglobin 7.6 L Hematocrit 25.6 L Mean Corpuscular 95.2 Volume Mean Corpuscular 28.3 L Hemoglobin Mean Corpuscular 29.7 L Hemoglobin Concent Red Cell 21.2 H Distribution Width Platelet Count 89 L Mean Platelet Volume 13.1 H Immature 0.400 Granulocytes % Neutrophils % 75.0 Lymphocytes % 20.0 Monocytes % 2.1 Eosinophils % 2.2 Basophils % 0.3 Nucleated Red Blood 0.4 H Cells % Immature 0.040 H Granulocytes # Neutrophils # 7.3 Lymphocytes # 2.0 Monocytes # 0.2 L Eosinophils # 0.2 Basophils # 0.0 Nucleated Red Blood 0.0 Cells # Sodium Level 149 H Potassium Level 4.0 Chloride Level 115 H Carbon Dioxide Level 29 Anion Gap 5 Blood Urea Nitrogen 79 H Creatinine 1.94 H Est Glomerular Filtrat Rate mL/min Glucose Level 86 Calcium Level 7.9 L Test 02/16/19 09:42 Bedside Glucose 89 Medications Medications Current Medications Lactulose (Enulose) 20 gm DAILY PRN PO CONSTIPATION; Start 01/17/19 at 18:17 Acetaminophen (Tylenol Tab) 650 mg Q4H PRN PO PAIN Last administered on 02/11/19at 21:29; Admin Dose 650 MG; Start 01/17/19 at 18:17 Miscellaneous Information (Pending [facility] Order For Wound Care) This patient ramirez... PRN PRN XX WOUND CARE; Start 01/17/19 at 18:17 Albuterol/ Ipratropium (Duoneb) 3 ml Q2H RESP THERAPY PRN HHN SHORTNESS OF BREATH Last administered on 02/13/19at 05:52; Admin Dose 3 ML; Start 01/17/19 at 18:17 Bisacodyl (Dulcolax) 10 mg BID PRN PO CONSTIPATION; Start 01/17/19 at 18:17; Status Hold Folic Acid (Folic Acid) 1 mg DAILY PO Last administered on 02/16/19at 09:35; Admin Dose 1 MG; Start 01/17/19 at 18:17 Latanoprost (Xalatan) 1 drop HS BOTH EYES Last administered on 02/15/19at 21:00; Admin Dose 1 DROP; Start 01/17/19 at 18:17 Nitroglycerin (Nitroglycerin (Sl Tab) 0.4 Mg) 0.4 tab Q5M PRN SL CHEST PAIN; Start 01/17/19 at 18:17 IV Flush (NS 3 ml) 3 ml PER PROTOCOL IV ; Start 01/17/19 at 18:17 Miscellaneous Information 1 ea NOTE XX ; Start 01/17/19 at 18:17 Glucose (Glutose) 15 gm Q15M PRN PO DECREASED GLUCOSE; Start 01/17/19 at 18:17 Glucose (Glutose) 22.5 gm Q15M PRN PO DECREASED GLUCOSE; Start 01/17/19 at 18:17 Dextrose (D50w Syringe) 25 ml Q15M PRN IV DECREASED GLUCOSE Last administered on 02/14/19at 17:23; Admin Dose 25 ML; Start 01/17/19 at 18:17 Dextrose (D50w Syringe) 50 ml Q15M PRN IV DECREASED GLUCOSE; Start 01/17/19 at 18:17 Glucagon (Glucagen) 1 mg Q15M PRN IM DECREASED GLUCOSE Last administered on 02/11/19at 17:55; Admin Dose 1 MG; Start 01/17/19 at 18:17 Glucose (Glutose) 15 gm Q15M PRN BUCCAL DECREASED GLUCOSE; Start 01/17/19 at 18:17 Bisacodyl (Dulcolax Supp) 10 mg DAILY PRN [place] CONSTIPATION; Start 01/17/19 at 18:17 Zinc Acetate/ Diphenhydramine (Benadryl 2% Cr) 1 applic Q6H PRN TOP ITCHING L ast administered on 01/26/19at 07:54; Admin Dose 1 APPLIC; Start 01/19/19 at 16:37 IV Flush (NS 10 ml) 10 ml PRN PRN IV IV PROTOCOL; Start 01/20/19 at 14:30 Cyanocobalamin (Vitamin B12 Inj) 1,000 mcg Q7D IM Last administered on 02/10/19at 09:50; Admin Dose 1,000 MCG; Start 02/03/19 at 09:00 Metoprolol Tartrate (Lopressor) 5 mg Q4H PRN IV HR>110 Hold SBP<100; Start 01/26/19 at 14:30 Vancomycin HCl (Vanco Iv Per Pharmacy) VANCOMYCIN PER PHARMACY PER PROTOCOL XX ; Start 01/27/19 at 12:00 Enoxaparin Sodium (Lovenox) 60 mg DAILY SC Last administered on 02/03/19at 08:06; Admin Dose 60 MG; Start 01/28/19 at 09:00; Status Hold Docusate Sodium (Colace Liquid Cup) 100 mg BID NGT ; Start 01/27/19 at 22:00; Status Hold Terazosin HCl (Hytrin) 10 mg HS NGT Last administered on 02/13/19at 21:27; Admin Dose 10 MG; Start 01/28/19 at 21:00 Levothyroxine Sodium (Synthroid) 125 mcg BEFORE BREAKFAST NGT Last administered on 02/16/19 09:35; Admin Dose 125 MCG; Start 01/28/19 at 07:00 Ferrous Sulfate (Feosol Liquid Cup) 300 mg WITH MEALS GTB Last administered on 02/16/19 09:35; Admin Dose 300 MG; Start 01/28/19 at 11:30 Multivitamins (Multivitamin) 30 ml DAILY GTB Last administered on 02/16/19at 09:34; Admin Dose 30 ML; Start 01/28/19 at 11:00 Diagnostic Test (Pha) (Accu-Chek) 1 ea Q4 XX Last administered on 02/16/19 09:37; Admin Dose 1 EA; Start 01/28/19 at 13:00 Nystatin/ Triamcinolone Acetonide (Mycolog Oint) 1 applic BID TOP Last administered on 02/16/19 09:54; Admin Dose 1 APPLIC; Start 01/28/19 at 22:30 Insulin Aspart (Novolog Insulin Pen) NOVOLOG *MILD* ALGORI... Q4 SC Last administered on 02/13/19 21:34; Admin Dose 1 UNIT; Start 01/29/19 at 05:00 Albuterol/ Ipratropium (Duoneb) 3 ml Q6HWA RESP THERAPY HHN Last administered on 02/16/19 08:39; Admin Dose 3 ML; Start 01/29/19 at 14:00 Epoetin Dae-epbx (RETACRIT(non-esrd)) 40,000 unit Mo@1700 SC Last administered on 02/10/19 18:06; Admin Dose 40,000 UNIT; Start 02/03/19 at 17:00 Aztreonam 1 gm/ Dextrose 50 ml @ 100 mls/hr Q12 IVPB Last administered on 02/16/19 09:53; Admin Dose 100 MLS/HR; Start 02/03/19 at 21:00 Metoprolol Tartrate (Lopressor) 12.5 mg BID PO Last administered on 02/16/19 09:36; Admin Dose 12.5 MG; Start 02/05/19 at 21:00 Eye Lubricant (Refresh Plus) 1 drop QID BOTH EYES Last administered on 9at 09:34; Admin Dose 1 DROP; Start 02/06/19 at 09:00 Eye Lubricant (Akwa Oint) 1 applic HS LEFT EYE Last administered on 02/15/19 21:00; Admin Dose 1 APPLIC; Start 02/06/19 at 21:00 Multi-Ingredient Ointment (Aquaphor Oint 52.5 Gm) 1 applic BID TOP Last administered on 02/16/19 09:34; Admin Dose 1 APPLIC; Start 02/06/19 at 22:40 Lansoprazole (Prevacid) 30 mg BID@0600,1800 NGT Last administered on 02/15/19at 17:42; Admin Dose 30 MG; Start 02/07/19 at 18:00 Tobramycin Sulfate/Sodium Chloride (Nilesh Inhal) 300 mg BID RESP THERAPY NEB Last administered on 02/16/19at 08:57; Admin Dose 300 MG; Start 02/08/19 at 09:00 Norepinephrine 250 ml @ 1.875 mls/ hr TITRATE IV ; Start 02/14/19 at 03:00 Dextrose 1,000 ml @ 40 mls/hr Q24H IV Last administered on 02/16/19at 04:00; Admin Dose 40 MLS/HR; Start 02/14/19 at 19:00 Morphine Sulfate (morphine) 0.25 mg Q4H PRN IV SEVERE PAIN LEVEL 7-10 Last administered on 02/15/19at 11:23; Admin Dose 0.25 MG; Start 02/15/19 at 11:00 Vancomycin HCl 750 mg/Dextrose 250 ml @ 125 mls/hr Q96H IVPB ; Start 02/16/19 at 23:00 Methylprednisolone Sodium Succinate (Solu-Medrol) 40 mg Q8 IV Last administered on 02/16/19at 09:34; Admin Dose 40 MG; Start 02/16/19 at 09:00 Insulin Glargine (Lantus) 5 units DAILY@2000 SC ; Start 02/16/19 at 20:00 MARJORIE JAIN February 16, 2019 12:52
[2019-02-16] MEDS: TERAZOSIN 5 MG CAP NGT SCH (21:00)
[2019-02-16] MEDS: INSULIN GLARGINE [LANTus] (100 UNITS/ML) SYG SC SCH (21:15)
[2019-02-16] MEDS: LATANOPROST 0.005% 2.5 ML OPH BOTH EYES SCH (21:22)
[2019-02-16] MEDS: OCULAR LUBRICANT 3.5 GM OPH OINT LEFT EYE SCH (21:22)
[2019-02-16] MEDS ORDERED: VANCOMYCIN 750 MG in DEXTROSE 5% 250 ML IVPB SCH (23:00)
[2019-02-17] VITALS (25 sets, daily range): BP systolic 92–124; BP diastolic 36–67; PULSE 61–84; RESP 12–31
[2019-02-17] MEDS: ACCU-CHEK XX SCH ×6 (01:39→19:59)
[2019-02-17] MEDS: INSULIN ASPART [NOVOLOG] 3 ML PEN SC SCH ×6 (01:41→19:57)
[2019-02-17] MEDS: LANSOPRAZOLE 30 MG CAP NGT SCH ×2 (05:34→17:13)
[2019-02-17] MEDS: METHYLPREDNISOLONE 40 MG INJ IV SCH ×3 (05:34→21:38)
[2019-02-17] MEDS: ALBUTEROL/IPRATROPIUM (NEB) 3 ML AMP HHN SCH ×3 (07:34→20:12)
[2019-02-17] MEDS: TOBRAMYCIN/0.25NS 300 MG/5 ML INHAL NEB SCH ×2 (07:48→20:00)
[2019-02-17] MEDS: LEVOTHYROXINE 125 MCG TAB NGT SCH (08:29)
[2019-02-17] MEDS: FOLIC ACID 1 MG TAB PO SCH (08:29)
[2019-02-17] MEDS: FERROUS SULFATE 60 MG/ML 5ML CUP GTB SCH ×3 (08:29→17:13)
[2019-02-17] MEDS: MULTIVITAMINS 30 ML CUP GTB SCH (08:30)
[2019-02-17] MEDS: CYANOCOBALAMIN 1000 MCG INJ IM SCH (08:30)
[2019-02-17] MEDS: AQUAPHOR 52.5 GM OINT TOP SCH ×2 (08:30→21:39)
[2019-02-17] MEDS: METOPROLOL 25 MG TAB PO SCH (08:30)
[2019-02-17] MEDS: NYSTATIN/TRIAMCINOLONE 15 GM OINT TOP SCH ×2 (08:31→21:38)
[2019-02-17] MEDS: BALSAM PERU/CASTOR OIL 60 GM TUBE TOP SCH ×2 (08:31→21:38)
--- NOTE | 2019-02-17 08:55 | CONS ---
Assessment/Plan Assessment/Plan Assessment/Plan (Daily) Impression: 1. Severe anemia likely due to chronic disease, last work up while admitted to [facility] about a week ago was neg for GI bleeding, including EGD/colon which was done -s/p EGD and colonoscopy by Dr Frost 01/09/19 which didn't find an obvious GI etiology to explain anemia. AVM or a small lesion could be missed due to poor prep. Pt likely needs capsule endoscopy -Neg fob, elevate retic, Low iron, tibc, [place] [id number] 2. Cystic lesion along pancreas body - 4.3 cm cystic lesion along the pancreas body, enlarged since 10/10/2012 (previously 2.4 cm). 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 -CEA wnl 3. Severe gastritis 4. Hemorrhoids 5. Hital hernia 6. A fib, -eliquis was stopped 01/06 during previous admission, on ASA 7. COPD 8. HTN 9. Hypothyroidism 10. Bilateral groin cellulitis 11. Rheumatoid arthritis. 12. Diabetes mellitus. 13. Peripheral vascular disease. 14. CHF 15. 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 Sepsis secondary to pneumonia 18. Encephalopathy secondary to sepsis 19. Hypothermia 20. Coagulopathy -INR 1.77 21. Positive wound culture -CORYNEBACTERIUM SPECIES 22 extensive rash all over the body including the face 23 respiratory failure Plan: Family has consented to PEG but pt is not stable Patient is volume overload and is on 40 % O2. Once his condition is stable will proceed with placement of G-tube will need outpatient EUS for evaluation of pancreatic cystic lesion that is enlarging Continue present care Dr. Frost resume GI care tomorrow Consultation Date/Type/Reason Admit Date/Time Jan 17, 2019 at 15:58 Initial Consult Date 01/18/19 Type of Consult GI Requesting Provider: IVAN AKHTAR MD Date/Time of Note DATE: 02/17/19 TIME: 08:52 24 HR Interval Summary Subjective hx not possible: pt non-verbal, pt critical status Exam/Review of Systems Exam Vitals Vital Signs Date Temp Pulse Resp B/P (MAP) Pulse Ox O2 O2 Flow FiO2 Time Delivery Rate 02/17/19 77 08:00 02/17/19 100 65 07:34 02/17/19 18 07:34 02/17/19 98.5 109/54 04:00 (72) 02/16/19 High Flow 20:00 02/14/19 10.0 04:05 Intake and Output 02/16/19 02/16/19 02/17/19 1515:00 23:00 07:00 IntakeIntake Total 800 ml 1190 ml 1000 ml OutputOutput Total 305 ml 250 ml 165 ml BalanceBalance 495 ml 940 ml 835 ml Constitutional: non-verbal Head: normocephalic, atraumatic Eyes: nl conjunctiva, EOMI, nl lids ENMT: nl external ears & nose, nl lips & teeth, nl nasal mucosa & septum Neck: supple, non-tender Respiratory: clear to auscultation, normal air movement Cardiovascular: regular rate and rhythm Gastrointestinal: soft, non-tender, bowel sounds Results Result Diagram: 02/16/19 04202/16/19 0420 Results 24hrs Laboratory Tests Test 02/16/19 09:42 02/16/19 13:09 02/16/19 17:34 02/16/19 20:09 Bedside Glucose 89 108 205 219 Test 02/17/19 01:38 02/17/19 04:50 02/17/19 05:05 02/17/19 08:34 Bedside Glucose 269 H 181 170 Lab Scanned BLOOD TRANSFUSIO Report N Medications Medication Current Medications Lactulose (Enulose) 20 gm DAILY PRN PO CONSTIPATION; Start 01/17/19 at 18:17 Acetaminophen (Tylenol Tab) 650 mg Q4H PRN PO PAIN Last administered on 02/11/19at 21:29; Admin Dose 650 MG; Start 01/17/19 at 18:17 Miscellaneous Information (Pending [facility] Order For Wound Care) This patient ramirez... PRN PRN XX WOUND CARE; Start 01/17/19 at 18:17 Albuterol/ Ipratropium (Duoneb) 3 ml Q2H RESP THERAPY PRN HHN SHORTNESS OF BREATH Last administered on 02/13/19at 05:52; Admin Dose 3 ML; Start 01/17/19 at 18:17 Bisacodyl (Dulcolax) 10 mg BID PRN PO CONSTIPATION; Start 01/17/19 at 18:17; Status Hold Folic Acid (Folic Acid) 1 mg DAILY PO Last administered on 02/17/19at 08:29; A dmin Dose 1 MG; Start 01/17/19 at 18:17 Latanoprost (Xalatan) 1 drop HS BOTH EYES Last administered on 02/16/19at 21:22; Admin Dose 1 DROP; Start 01/17/19 at 18:17 Nitroglycerin (Nitroglycerin (Sl Tab) 0.4 Mg) 0.4 tab Q5M PRN SL CHEST PAIN; Start 01/17/19 at 18:17 IV Flush (NS 3 ml) 3 ml PER PROTOCOL IV ; Start 01/17/19 at 18:17 Miscellaneous Information 1 ea NOTE XX ; Start 01/17/19 at 18:17 Glucose (Glutose) 15 gm Q15M PRN PO DECREASED GLUCOSE; Start 01/17/19 at 18:17 Glucose (Glutose) 22.5 gm Q15M PRN PO DECREASED GLUCOSE; Start 01/17/19 at 18:17 Dextrose (D50w Syringe) 25 ml Q15M PRN IV DECREASED GLUCOSE Last administered on 02/14/19at 17:23; Admin Dose 25 ML; Start 01/17/19 at 18:17 Dextrose (D50w Syringe) 50 ml Q15M PRN IV DECREASED GLUCOSE; Start 01/17/19 at 18:17 Glucagon (Glucagen) 1 mg Q15M PRN IM DECREASED GLUCOSE Last administered on 02/11/19at 17:55; Admin Dose 1 MG; Start 01/17/19 at 18:17 Glucose (Glutose) 15 gm Q15M PRN BUCCAL DECREASED GLUCOSE; Start 01/17/19 at 1 8:17 Bisacodyl (Dulcolax Supp) 10 mg DAILY PRN [place] CONSTIPATION; Start 01/17/19 at 18:17 Zinc Acetate/ Diphenhydramine (Benadryl 2% Cr) 1 applic Q6H PRN TOP ITCHING Last administered on 01/26/19at 07:54; Admin Dose 1 APPLIC; Start 01/19/19 at 16:37 IV Flush (NS 10 ml) 10 ml PRN PRN IV IV PROTOCOL; Start 01/20/19 at 14:30 Cyanocobalamin (Vitamin B12 Inj) 1,000 mcg Q7D IM Last administered on at 08:30; Admin Dose 1,000 MCG; Start 02/03/19 at 09:00 Metoprolol Tartrate (Lopressor) 5 mg Q4H PRN IV HR>110 Hold SBP<100; Start 01/26/19 at 14:30 Vancomycin HCl (Vanco Iv Per Pharmacy) VANCOMYCIN PER PHARMACY PER PROTOCOL XX ; Start 01/27/19 at 12:00 Enoxaparin Sodium (Lovenox) 60 mg DAILY SC Last administered on 02/03/19 08:06; Admin Dose 60 MG; Start 01/28/19 at 09:00; Status Hold Docusate Sodium (Colace Liquid Cup) 100 mg BID NGT ; Start 01/27/19 at 22:00; Status Hold Terazosin HCl (Hytrin) 10 mg HS NGT Last administered on 02/13/19 21:27; Admin Dose 10 MG; Start 01/28/19 at 21:00 Levothyroxine Sodium (Synthroid) 125 mcg BEFORE BREAKFAST NGT Last administered on 02/17/19 08:29; Admin Dose 125 MCG; Start 01/28/19 at 07:00 Ferrous Sulfate (Feosol Liquid Cup) 300 mg WITH MEALS GTB Last administered on 02/17/19 08:29; Admin Dose 300 MG; Start 01/28/19 at 11:30 Multivitamins (Multivitamin) 30 ml DAILY GTB Last administered on 02/17/19 08:30; Admin Dose 30 ML; Start 01/28/19 at 11:00 Diagnostic Test (Pha) (Accu-Chek) 1 ea Q4 XX Last administered on 02/17/19 04:55; Admin Dose 1 EA; Start 01/28/19 at 13:00 Nystatin/ Triamcinolone Acetonide (Mycolog Oint) 1 applic BID TOP Last administered on 02/17/19 08:31; Admin Dose 1 APPLIC; Start 01/28/19 at 22:30 Insulin Aspart (Novolog Insulin Pen) NOVOLOG *MILD* ALGORI... Q4 SC Last administered on 02/17/19 08:44; Admin Dose 1 UNIT; Start 01/29/19 at 05:00 Albuterol/ Ipratropium (Duoneb) 3 ml Q6HWA RESP THERAPY HHN Last administered on 02/17/19 07:34; Admin Dose 3 ML; Start 01/29/19 at 14:00 Epoetin Dae-epbx (RETACRIT(non-esrd)) 40,000 unit Mo@1700 SC Last administered on 02/10/19 18:06; Admin Dose 40,000 UNIT; Start 02/03/19 at 17:00 Aztreonam 1 gm/ Dextrose 50 ml @ 100 mls/hr Q12 IVPB Last administered on 02/16/19 21:09; Admin Dose 100 MLS/HR; Start 02/03/19 at 21:00 Metoprolol Tartrate (Lopressor) 12.5 mg BID PO Last administered on 02/17/19 08:30; Admin Dose 12.5 MG; Start 02/05/19 at 21:00 Eye Lubricant (Refresh Plus) 1 drop QID BOTH EYES Last administered on 02/16/19 21:09; Admin Dose 1 DROP; Start 02/06/19 at 09:00 Eye Lubricant (Akwa Oint) 1 applic HS LEFT EYE Last administered on 02/16/19 21:22; Admin Dose 1 APPLIC; Start 02/06/19 at 21:00 Multi-Ingredient Ointment (Aquaphor Oint 52.5 Gm) 1 applic BID TOP Last administered on 02/17/19 08:30; Admin Dose 1 APPLIC; Start 02/06/19 at 22:40 Lansoprazole (Prevacid) 30 mg BID@0600,1800 NGT Last administered on 02/16/19 17:44; Admin Dose 30 MG; Start 02/07/19 at 18:00 Tobramycin Sulfate/Sodium Chloride (Nilesh Inhal) 300 mg BID RESP THERAPY NEB Last administered on 02/17/19 07:48; Admin Dose 300 MG; Start 02/08/19 at 09:00 Norepinephrine 250 ml @ 1.875 mls/ hr TITRATE IV ; Start 02/14/19 at 03:00 Dextrose 1,000 ml @ 40 mls/hr Q24H IV Last administered on 02/16/19 23:10; Admin Dose 40 MLS/HR; Start 02/14/19 at 19:00 Morphine Sulfate (morphine) 0.25 mg Q4H PRN IV SEVERE PAIN LEVEL 7-10 Last administered on 02/15/19 11:23; Admin Dose 0.25 MG; Start 02/15/19 at 11:00 Vancomycin HCl 750 mg/Dextrose 250 ml @ 125 mls/hr Q96H IVPB Last administered on 02/16/19at 23:09; Admin Dose 125 MLS/HR; Start 02/16/19 at 23:00 Methylprednisolone Sodium Succinate (Solu-Medrol) 40 mg Q8 IV Last administered on 02/17/19at 05:34; Admin Dose 40 MG; Start 02/16/19 at 09:00 Insulin Glargine (Lantus) 5 units DAILY@2000 SC Last administered on 02/16/19at 21:15; Admin Dose 5 UNITS; Start 02/16/19 at 20:00 GEETA CRUZ MD February 17, 2019 08:55
[2019-02-17] MEDS: AZTREONAM 1 GM in DEXTROSE 5% 50 ML IVPB SCH ×2 (09:19→21:51)
--- NOTE | 2019-02-17 09:28 | CONS ---
Consult Date/Type/Reason Admit Date/Time Jan 17, 2019 at 15:58 Initial Consult Date 01/18/19 Type of Consult Pulmonary Requesting Provider: IVAN AKHTAR MD Date/Time of Note DATE: 02/17/19 TIME: 09:25 Subjective Minimally responsive on nasal cannula O2. FiO2 at 55%. Patient DNR at present. Objective Vital Signs Date Temp Pulse Resp B/P (MAP) Pulse Ox O2 O2 Flow FiO2 Time Delivery Rate 02/17/19 77 08:00 02/17/19 100 65 07:34 02/17/19 18 07:34 02/17/19 98.5 109/54 04:00 (72) 02/16/19 High Flow 20:00 02/14/19 10.0 04:05 Intake and Output 02/16/19 02/16/19 02/17/19 1414:59 22:59 06:59 IntakeIntake Total 1040 ml 1150 ml 1080 ml OutputOutput Total 305 ml 260 ml 195 ml BalanceBalance 735 ml 890 ml 885 ml Exam GENERAL: Chronically ill-appearing gentleman on high flow O2 VITAL SIGNS: per chart NECK: Supple. No JVD or lymphadenopathy. CARDIAC EXAM: S1, S2. No added sounds or murmurs. CHEST: Diminished air entry bilaterally ABDOMEN: Soft, nontender. No guarding or rebound. EXTREMITIES: No cyanosis, clubbing edema +2 NEUROLOGIC: Generalized weakness Vent Setting Ventilator Support Mode: AC Fraction of Inspired Oxygen pe: 65 Positive End Expiratory Pressu: 5.0 Results/Medications Result Diagram: 02/16/19 0420 02/16/19 0420 Results 24 hrs Laboratory Tests Test 02/16/19 09:42 02/16/19 13:09 02/16/19 17:34 02/16/19 20:09 Bedside Glucose 89 108 205 219 Test 02/17/19 01:38 02/17/19 04:50 02/17/19 05:05 02/17/19 08:34 Bedside Glucose 269 H 181 170 Lab Scanned BLOOD TRANSFUSIO Report N Medications Current Medications Lactulose (Enulose) 20 gm DAILY PRN PO CONSTIPATION; Start 01/17/19 at 18:17 Acetaminophen (Tylenol Tab) 650 mg Q4H PRN PO PAIN Last administered on 02/11/19at 21:29; Admin Dose 650 MG; Start 01/17/19 at 18:17 Miscellaneous Information (Pending [facility]yl Order For Wound Care) This patient ramirez... PRN PRN XX WOUND CARE; Start 01/17/19 at 18:17 Albuterol/ Ipratropium (Duoneb) 3 ml Q2H RESP THERAPY PRN HHN SHORTNESS OF BREATH Last administered on 02/13/19at 05:52; Admin Dose 3 ML; Start 01/17/19 at 18:17 Bisacodyl (Dulcolax) 10 mg BID PRN PO CONSTIPATION; Start 01/17/19 at 18:17; Status Hold Folic Acid (Folic Acid) 1 mg DAILY PO Last administered on 02/17/19at 08:29; Admin Dose 1 MG; Start 01/17/19 at 18:17 Latanoprost (Xalatan) 1 drop HS BOTH EYES Last administered on 02/16/19at 21:22; Admin Dose 1 DROP; Start 01/17/19 at 18:17 Nitroglycerin (Nitroglycerin (Sl Tab) 0.4 Mg) 0.4 tab Q5M PRN SL CHEST PAIN; Start 01/17/19 at 18:17 IV Flush (NS 3 ml) 3 ml PER PROTOCOL IV ; Start 01/17/19 at 18:17 Miscellaneous Information 1 ea NOTE XX ; Start 01/17/19 at 18:17 Glucose (Glutose) 15 gm Q15M PRN PO DECREASED GLUCOSE; Start 01/17/19 at 18:17 Glucose (Glutose) 22.5 gm Q15M PRN PO DECREASED GLUCOSE; Start 01/17/19 at 18:17 Dextrose (D50w Syringe) 25 ml Q15M PRN IV DECREASED GLUCOSE Last administered on 02/14/19at 17:23; Admin Dose 25 ML; Start 01/17/19 at 18:17 Dextrose (D50w Syringe) 50 ml Q15M PRN IV DECREASED GLUCOSE; Start 01/17/19 at 18:17 Glucagon (Glucagen) 1 mg Q15M PRN IM DECREASED GLUCOSE Last administered on 02/11/19at 17:55; Admin Dose 1 MG; Start 01/17/19 at 18:17 Glucose (Glutose) 15 gm Q15M PRN BUCCAL DECREASED GLUCOSE; Start 01/17/19 at 18:17 Bisacodyl (Dulcolax Supp) 10 mg DAILY PRN [place] CONSTIPATION; Start 01/17/19 at 18:17 Zinc Acetate/ Diphenhydramine (Benadryl 2% Cr) 1 applic Q6H PRN TOP ITCHING Last administered on 01/26/19 07:54; Admin Dose 1 APPLIC; Start 01/19/19 at 16:37 IV Flush (NS 10 ml) 10 ml PRN PRN IV IV PROTOCOL; Start 01/20/19 at 14:30 Cyanocobalamin (Vitamin B12 Inj) 1,000 mcg Q7D IM Last administered on 02/17/19 08:30; Admin Dose 1,000 MCG; Start 02/03/19 at 09:00 Metoprolol Tartrate (Lopressor) 5 mg Q4H PRN IV HR>110 Hold SBP<100; Start 01/26/19 at 14:30 Vancomycin HCl (Vanco Iv Per Pharmacy) VANCOMYCIN PER PHARMACY PER PROTOCOL XX ; Start 01/27/19 at 12:00 Enoxaparin Sodium (Lovenox) 60 mg DAILY SC Last administered on 02/03/19 08:06; Admin Dose 60 MG; Start 01/28/19 at 09:00; Status Hold Docusate Sodium (Colace Liquid Cup) 100 mg BID NGT ; Start 01/27/19 at 22:00; Status Hold Terazosin HCl (Hytrin) 10 mg HS NGT Last administered on 02/13/19at 21:27; Admin Dose 10 MG; Start 01/28/19 at 21:00 Levothyroxine Sodium (Synthroid) 125 mcg BEFORE BREAKFAST NGT Last administered on 02/17/19 08:29; Admin Dose 125 MCG; Start 01/28/19 at 07:00 Ferrous Sulfate (Feosol Liquid Cup) 300 mg WITH MEALS GTB Last administered on 02/17/19 08:29; Admin Dose 300 MG; Start 01/28/19 at 11:30 Multivitamins (Multivitamin) 30 ml DAILY GTB Last administered on 02/17/19 08:30; Admin Dose 30 ML; Start 01/28/19 at 11:00 Diagnostic Test (Pha) (Accu-Chek) 1 ea Q4 XX Last administered on 02/17/19 09:17; Admin Dose 1 EA; Start 01/28/19 at 13:00 Nystatin/ Triamcinolone Acetonide (Mycolog Oint) 1 applic BID TOP Last admin istered on 02/17/19 08:31; Admin Dose 1 APPLIC; Start 01/28/19 at 22:30 Insulin Aspart (Novolog Insulin Pen) NOVOLOG *MILD* ALGORI... Q4 SC Last administered on 02/17/19 08:44; Admin Dose 1 UNIT; Start 01/29/19 at 05:00 Albuterol/ Ipratropium (Duoneb) 3 ml Q6HWA RESP THERAPY HHN Last administered on 02/17/19 07:34; Admin Dose 3 ML; Start 01/29/19 at 14:00 Epoetin Dae-epbx (RETACRIT(non-esrd)) 40,000 unit Mo@1700 SC Last administered on 02/10/19 18:06; Admin Dose 40,000 UNIT; Start 02/03/19 at 17:00 Aztreonam 1 gm/ Dextrose 50 ml @ 100 mls/hr Q12 IVPB Last administered on 02/17/19 09:19; Admin Dose 100 MLS/HR; Start 02/03/19 at 21:00 Metoprolol Tartrate (Lopressor) 12.5 mg BID PO Last administered on 02/17/19 08:30; Admin Dose 12.5 MG; Start 02/05/19 at 21:00 Eye Lubricant (Refresh Plus) 1 drop QID BOTH EYES Last administered on 02/16/19 21:09; Admin Dose 1 DROP; Start 02/06/19 at 09:00 Eye Lubricant (Akwa Oint) 1 applic HS LEFT EYE Last administered on 02/16/19 21:22; Admin Dose 1 APPLIC; Start 02/06/19 at 21:00 Multi-Ingredient Ointment (Aquaphor Oint 52.5 Gm) 1 applic BID TOP Last administered on 02/17/19 08:30; Admin Dose 1 APPLIC; Start 02/06/19 at 22:40 Lansoprazole (Prevacid) 30 mg BID@0600,1800 NGT Last administered on 02/16/19 17:44; Admin Dose 30 MG; Start 02/07/19 at 18:00 Tobramycin Sulfate/Sodium Chloride (Nilesh Inhal) 300 mg BID RESP THERAPY NEB Last administered on 02/17/19 07:48; Admin Dose 300 MG; Start 02/08/19 at 09:00 Norepinephrine 250 ml @ 1.875 mls/ hr TITRATE IV ; Start 02/14/19 at 03:00 Dextrose 1,000 ml @ 40 mls/hr Q24H IV Last administered on 02/16/19 23:10; Admin Dose 40 MLS/HR; Start 02/14/19 at 19:00 Morphine Sulfate (morphine) 0.25 mg Q4H PRN IV SEVERE PAIN LEVEL 7-10 Last administered on 02/15/19 11:23; Admin Dose 0.25 MG; Start 02/15/19 at 11:00 Vancomycin HCl 750 mg/Dextrose 250 ml @ 125 mls/hr Q96H IVPB Last administered on 02/16/19 23:09; Admin Dose 125 MLS/HR; Start 02/16/19 at 23:00 Methylprednisolone Sodium Succinate (Solu-Medrol) 40 mg Q8 IV Last administered on 02/17/19 05:34; Admin Dose 40 MG; Start 02/16/19 at 09:00 Insulin Glargine (Lantus) 5 units DAILY@2000 SC Last administered on 02/16/19 21:15; Admin Dose 5 UNITS; Start 02/16/19 at 20:00 Assessment/Plan Hospital Course (Demo Recall) IMP: 1. s/p Acute hypoxemic respiratory failure likely secondary to combination of volume overload and pneumonia, now on high flow O2. 2. Encephalopathy underlying dementia versus toxic metabolic, appears to be slowly improving possibly secondary to elevated sodium. 3. Valvular heart disease 4. Severe dysphagia 5. Status post septic shock likely secondary to above, persistent leukocytosis. 6. Anemia, no active GI bleeding 7. Skin diffuse excoriating skin lesion unclear etiology not consistent with history of "red man" syndrome. or pemphigus. Likely drug reaction. 8. Anemia 9. Status post septic shock RECS: 1. Continue high flow O2 2. Continue broad-spectrum antibiotics 3. Infectious work-up as per ID 4. Monitor H&H Consider transition to comfort care Appreciate palliative care consult Critical care time 40 minutes. DIANA MCRAE MD, [facility] February 17, 2019 09:28
--- NOTE | 2019-02-17 09:45 | CONS ---
Assessment/Plan Assessment/Plan Hospital Course 88 yo M with multiple comorbidities who initially presented for evaluation of hiccups. He was noted to become acutely altered... for which neurology is consulted. He has been transferred to the ICU on several occasions due to ams in the context of respiratory distress and ? seizures.. On 02/14, he was transferred to the ICU for hypotension. The clinical picture suggests an acute toxic-metabolic encephalopathy.. Meningoencephalitis is, though, not entirely excluded. MRI brain is without acute ischemia, though notable for chronic infarcts. EEG was without ongoing epileptiform activity LP for CSF valuation was declined by medical decision makers. P: OK to Cont Keppra 500 BID for now Ativan IV PRN prolonged seizure (> 5 min) Agree w/ ASA/Lipitor daily pending the above Limit sedating medications where possible Other medical management per primary Will follow clinically Consultation Date/Type/Reason Admit Date/Time Jan 17, 2019 at 15:58 Type of Consult Neurology Reason for Consultation ams; eval for stroke Requesting Provider: IVAN AKHTAR MD Date/Time of Note DATE: 02/17/19 TIME: 09:45 24 HR Interval Summary Free Text/Dictation Continues critical care. No changes in pt condition reported. Exam Vital Signs Vitals Vital Signs Date Temp Pulse Resp B/P (MAP) Pulse Ox O2 O2 Flow FiO2 Time Delivery Rate 02/17/19 77 08:00 02/17/19 100 65 07:34 02/17/19 18 07:34 02/17/19 98.5 109/54 04:00 (72) 02/16/19 High Flow 20:00 02/14/19 10.0 04:05 Intake and Output 02/16/19 02/16/19 02/17/19 1515:00 23:00 07:00 IntakeIntake Total 800 ml 1190 ml 1000 ml OutputOutput Total 305 ml 250 ml 165 ml BalanceBalance 495 ml 940 ml 835 ml Exam PE: Gen Appearance: No Apparent Distress HEENT: Normocephalic Cardiovascular: Regular rate Respiratory: respirations labored, symmetric Abdomen: Soft Extremities: Dry, skin peeling NE: The patient was obtunded and nonverbal. Cranial nerve examination was limited by mental status. Pupils were equal and reactive to light. There was no afferent pupillary defect. Funduscopic examination was limited. Face was grossly symmetric. Tone was normal. Muscle bulk was normal. I did not see fasciculations. The patient withdrew his extremities to noxious stimuli. Coordination and gait testing was limited by mental status. Arm and leg reflexes were within normal limits and symmetric. Gray's sign was absent. Plantar responses were flexor. NEGRA CORONA NP February 17, 2019 09:45
[2019-02-17] MEDS: CARBOXYMETHYLCELLULOSE 0.5% 0.4 ML OPH BOTH EYES SCH ×4 (10:32→21:00)
--- NOTE | 2019-02-17 11:19 | CONS ---
Assessment/Plan Assessment/Plan Hospital Course (Demo Recall) IMPRESSION: 1. Atrial fibrillation, currently rate controlled.-off systemic anticoagulation due to anemia. 2. Possible congestive heart failure by chest x-ray, which will be diastolic, acute on chronic by most recent echo with an EF of 60%. 3. Tricuspid regurgitation, moderate by most recent echo. 4. Acute on chronic renal failure-mild worsening 5. Possible pneumonia. 6. History of coronary artery disease, status post coronary artery bypass graft surgery. 7. Dyslipidemia. 8. Rheumatoid arthritis. 9. Groin cellulitis. 10. Anemia-worsening again today. s/p endoscopy during this admission 11. Diabetes mellitus. 12. Sepsis/leukocytosis 14. abdominal mass 15. Rash-all over body with skin chaffing at this time, probable drug reaction- significantly improved 16. Encephalopathy-ongoing. MRI negative for acute CVA 17. coagulopathy-ongoing and mildly increased Recc: -Now transferred back to ICU due to unstable BP -serial ecg's -Continue statin -Continue broad spectrum abx's and f/u cx data -Ongoing GI eval of abd mass -ongoing derm eval of rash and continue topical treatment -BB as tolerated only and was held today -off anticoagulation secondary to anemia/GIB requiring trasnfusions -transfuse PRBC's as necessary -lasix currently held due to renal failure/borderline BP -now on steroids/bronchodilators follow resp status -Now DNR Consultation Date/Type/Reason Admit Date/Time Jan 17, 2019 at 15:58 Initial Consult Date 01/18/19 Type of Consult Cardiology Reason for Consultation AF Requesting Provider: IVAN AKHTAR MD Date/Time of Note DATE: 02/17/19 TIME: 11:16 Exam/Review of Systems Vital Signs Vitals Vital Signs Date Temp Pulse Resp B/P (MAP) Pulse Ox O2 O2 Flow FiO2 Time Delivery Rate 02/17/19 69 18 109/51 97 High Flow 10:00 (70) 02/17/19 65 07:34 02/17/19 98.5 04:00 02/14/19 10.0 04:05 Intake and Output 02/16/19 02/16/19 02/17/19 1515:00 23:00 07:00 IntakeIntake Total 800 ml 1190 ml 1000 ml OutputOutput Total 305 ml 250 ml 165 ml BalanceBalance 495 ml 940 ml 835 ml Exam Exam Review of Systems: CONSTITUTIONAL: No fevers, chills. PULMONARY: No sob CARDIOVASCULAR: No chest pain/palpitations GASTROINTESTINAL: No nausea/vomiting. GENITOURINARY: No hematuria/dysuria. MUSCULOSKELETAL: No myagias/arthalgias. PSYCHIATRIC: The patient denies depression. NEUROLOGIC: encaphalopathic Constitutional: other (lethargic) Psych: no complaints Head: normocephalic ENMT: mucosa pink and moist Neck: supple, jvd (9 cm watedr) Respiratory: diminished breath sounds (at bases/B) Gastrointestinal: soft, non-tender Musculoskeletal: muscle weakness (generalized) Extremities: edema (trace/B) Neurological: lethargic Skin: other (skin breakdown/chaffing) Labs Result Diagram: 02/16/19 0420 02/16/19 0420 Results 24hrs Laboratory Tests Test 02/16/19 13:09 02/16/19 17:34 02/16/19 20:09 02/17/19 01:38 Bedside Glucose 108 205 219 269 H Test 02/17/19 04:50 02/17/19 05:05 02/17/19 08:34 Bedside Glucose 181 170 Lab Scanned BLOOD TRANSFUSIO Report N Medications Medications Current Medications Lactulose (Enulose) 20 gm DAILY PRN PO CONSTIPATION; Start 01/17/19 at 18:17 Acetaminophen (Tylenol Tab) 650 mg Q4H PRN PO PAIN Last administered on 02/11/19at 21:29; Admin Dose 650 MG; Start 01/17/19 at 18:17 Miscellaneous [facility] ([facility] This patient ramirez... PRN PRN XX WOUND CARE; Start 01/17/19 at 18:17 Albuterol/ Ipratropium (Duoneb) 3 ml Q2H RESP THERAPY PRN HHN SHORTNESS OF BREATH Last administered on 02/13/19at 05:52; Admin Dose 3 ML; Start 01/17/19 at 18:17 Bisacodyl (Dulcolax) 10 mg BID PRN PO CONSTIPATION; Start 01/17/19 at 18:17; Status Hold Folic Acid (Folic Acid) 1 mg DAILY PO Last administered on 02/17/19at 08:29; Admin Dose 1 MG; Start 01/17/19 at 18:17 Latanoprost (Xalatan) 1 drop HS BOTH EYES Last administered on 02/16/19at 21:22; Admin Dose 1 DROP; Start 01/17/19 at 18:17 Nitroglycerin (Nitroglycerin (Sl Tab) 0.4 Mg) 0.4 tab Q5M PRN SL CHEST PAIN; Start 01/17/19 at 18:17 IV Flush (NS 3 ml) 3 ml PER PROTOCOL IV ; Start 01/17/19 at 18:17 Miscellaneous Information 1 ea NOTE XX ; Start 01/17/19 at 18:17 Glucose (Glutose) 15 gm Q15M PRN PO DECREASED GLUCOSE; Start 01/17/19 at 18:17 Glucose (Glutose) 22.5 gm Q15M PRN PO DECREASED GLUCOSE; Start 01/17/19 at 18:17 Dextrose (D50w Syringe) 25 ml Q15M PRN IV DECREASED GLUCOSE Last administered on 02/14/19at 17:23; Admin Dose 25 ML; Start 01/17/19 at 18:17 Dextrose (D50w Syringe) 50 ml Q15M PRN IV DECREASED GLUCOSE; Start 01/17/19 at 18:17 Glucagon (Glucagen) 1 mg Q15M PRN IM DECREASED GLUCOSE Last administered on 02/11/19at 17:55; Admin Dose 1 MG; Start 01/17/19 at 18:17 Glucose (Glutose) 15 gm Q15M PRN BUCCAL DECREASED GLUCOSE; Start 01/17/19 at 18:17 Bisacodyl (Dulcolax Supp) 10 mg DAILY PRN [place] CONSTIPATION; Start 01/17/19 at 18:17 Zinc Acetate/ Diphenhydramine (Benadryl 2% Cr) 1 applic Q6H PRN TOP ITCHING Last administered on 01/26/19at 07:54; Admin Dose 1 APPLIC; Start 01/19/19 at 16:37 IV Flush (NS 10 ml) 10 ml PRN PRN IV IV PROTOCOL; Start 01/20/19 at 14:30 Cyanocobalamin (Vitamin B12 Inj) 1,000 mcg Q7D IM Last administered on 02/17/19at 08:30; Admin Dose 1,000 MCG; Start 02/03/19 at 09:00 Metoprolol Tartrate (Lopressor) 5 mg Q4H PRN IV HR>110 Hold SBP<100; Start 01/26/19 at 14:30 Vancomycin HCl (Vanco Iv Per Pharmacy) VANCOMYCIN PER PHARMACY PER PROTOCOL XX ; Start 01/27/19 at 12:00 Enoxaparin Sodium (Lovenox) 60 mg DAILY SC Last administered on 02/03/19 08:06; Admin Dose 60 MG; Start 01/28/19 at 09:00; Status Hold Docusate Sodium (Colace Liquid Cup) 100 mg BID NGT ; Start 01/27/19 at 22:00; Status Hold Terazosin HCl (Hytrin) 10 mg HS NGT Last administered on 02/13/19 21:27; Admin Dose 10 MG; Start 01/28/19 at 21:00 Levothyroxine Sodium (Synthroid) 125 mcg BEFORE BREAKFAST NGT Last administered on 02/17/19 08:29; Admin Dose 125 MCG; Start 01/28/19 at 07:00 Ferrous Sulfate (Feosol Liquid Cup) 300 mg WITH MEALS GTB Last administered on 02/17/19 08:29; Admin Dose 300 MG; Start 01/28/19 at 11:30 Multivitamins (Multivitamin) 30 ml DAILY GTB Last administered on 02/17/19 08:30; Admin Dose 30 ML; Start 01/28/19 at 11:00 Diagnostic Test (Pha) (Accu-Chek) 1 ea Q4 XX Last administered on 02/17/19 09:17; Admin Dose 1 EA; Start 01/28/19 at 13:00 Nystatin/ Triamcinolone Acetonide (Mycolog Oint) 1 applic BID TOP Last administered on 02/17/19 08:31; Admin Dose 1 APPLIC; Start 01/28/19 at 22:30 Insulin Aspart (Novolog Insulin Pen) NOVOLOG *MILD* ALGORI... Q4 SC Last administered on 02/17/19 08:44; Admin Dose 1 UNIT; Start 01/29/19 at 05:00 Albuterol/ Ipratropium (Duoneb) 3 ml Q6HWA RESP THERAPY HHN Last administered on 02/17/19 07:34; Admin Dose 3 ML; Start 01/29/19 at 14:00 Epoetin Dae-epbx (RETACRIT(non-esrd)) 40,000 unit Mo@1700 SC Last administered on 02/10/19 18:06; Admin Dose 40,000 UNIT; Start 02/03/19 at 17:00 Aztreonam 1 gm/ Dextrose 50 ml @ 100 mls/hr Q12 IVPB Last administered on 02/17/19 09:19; Admin Dose 100 MLS/HR; Start 02/03/19 at 21:00 Metoprolol Tartrate (Lopressor) 12.5 mg BID PO Last administered on 02/17/19 08:30; Admin Dose 12.5 MG; Start 02/05/19 at 21:00 Eye Lubricant (Refresh Plus) 1 drop QID BOTH EYES Last administered on 02/17/19 10:32; Admin Dose 1 DROP; Start 02/06/19 at 09:00 Eye Lubricant (Akwa Oint) 1 applic HS LEFT EYE Last administered on 02/16/19 21:22; Admin Dose 1 APPLIC; Start 02/06/19 at 21:00 Multi-Ingredient Ointment (Aquaphor Oint 52.5 Gm) 1 applic BID TOP Last administered on 02/17/19 08:30; Admin Dose 1 APPLIC; Start 02/06/19 at 22:40 Lansoprazole (Prevacid) 30 mg BID@0600,1800 NGT Last administered on 02/16/19 17:44; Admin Dose 30 MG; Start 02/07/19 at 18:00 Tobramycin Sulfate/Sodium Chloride (Nilesh Inhal) 300 mg BID RESP THERAPY NEB Last administered on 02/17/19 07:48; Admin Dose 300 MG; Start 02/08/19 at 09:00 Norepinephrine 250 ml @ 1.875 mls/ hr TITRATE IV ; Start 02/14/19 at 03:00 Dextrose 1,000 ml @ 40 mls/hr Q24H IV Last administered on 02/16/19 23:10; Admin Dose 40 MLS/HR; Start 02/14/19 at 19:00 Morphine Sulfate (morphine) 0.25 mg Q4H PRN IV SEVERE PAIN LEVEL 7-10 Last administered on 02/15/19 11:23; Admin Dose 0.25 MG; Start 02/15/19 at 11:00 Vancomycin HCl 750 mg/Dextrose 250 ml @ 125 mls/hr Q96H IVPB Last administered on 5/26/19at 23:09; Admin Dose 125 MLS/HR; Start 02/16/19 at 23:00 Methylprednisolone Sodium Succinate (Solu-Medrol) 40 mg Q8 IV Last administered on 02/17/19at 05:34; Admin Dose 40 MG; Start 02/16/19 at 09:00 Insulin Glargine (Lantus) 5 units DAILY@2000 SC Last administered on 02/16/19at 21:15; Admin Dose 5 UNITS; Start 02/16/19 at 20:00 MARJORIE JAIN February 17, 2019 11:18
--- NOTE | 2019-02-17 11:26 | CONS ---
Assessment/Plan Assessment/Plan Hospital Course (Demo Recall) ID PROGRESS NOTE CURRENT ABX: DAY # => Vanco IV + Azactam + TOBRA INH s/p Cancidas 24 H INTERVAL SUMMARY * Clinically without much change -- remains hypoxemic respiratory failure he is on high flow oxygen * CXR 02/14/19 -> Mixed interstitial and alveolar infiltrates possibly representing edema, atypical pneumonia, or pneumonitis are mildly improved MICRO/OTHER * 01/30/19 EYE CX: WOUND CULTURE Organism 1 CORYNEBACTERIUM SPECIES QUANTITY SCANT GROWTH SOURCE: EXUDATE FROM RIGHT EYE * 01/28/19 RESP CX: RESPIRATORY CULTURE Final Organism 1 ESCHERICHIA COLI QUANTITY SCANT GROWTH Organism 2 NORMAL RESPIRATORY MARIE QUANTITY 2+ E COLI M.I.C. RX --------- --- AMPICILLIN 4 S CEFAZOLIN I CEFOTAXIME S CIPROFLOXACIN >=4 R GENTAMICIN <=1 S LEVOFLOXACIN >=8 R TOBRAMYCIN <=1 S TRIMETHOPRIM/SULFAMETHOXAZOLE <=20 S * 01/27/19 BCX (-) * 01/21/19 BCX (-) * 01/17/19 BCX (+) Staph COAGULASE NEGATIVE STAPH == skin contaminant * 01/05/19 BCx (-) * Skin Cx (+)Mateus Albicans HPI/HOSPITAL COURSE * 88 yo M w/multiple-cardiopulmonary co-morbid conditions -- readmitted with sepsis likely due to pulmonary infection. * Patient s/p recent admission for PNA with radiological improvement -- now returns with probable persistent pulm infection + SIGNIFICANT YEAST DERMATOMYCOSIS GROIN -- Primary has narrowed ABX spectrum for concern YEAST infection and MICHELLE which is an effective strategy. * WBC down with empiric ABX coverage. * ROS: Limited by patient's critical illness DIAGNOSTIC IMAGING * 01/31/19 CXR: 1. Diffuse interstitial and airspace opacities throughout the lungs, slightly improved on the right and worsened on the left representing multifocal infection in the acute setting. Pulmonary edema could appear similarly. 2. Small bilateral pleural effusions, unchanged. * 01/28/19: MRI BRAIN: * 1. No acute intracranial abnormality. No intracranial hemorrhage, enhanci ng mass lesion, infarction or hydrocephalous. * 2. Remote prior right temporal lobe infarct with associated gliosis in the underlying white matter. No evidence of acute superimposed on chronic infa rct. * 3. Mild to moderate peripheral and central cerebral volume loss, within normal limits for age. * 4. Mild to moderate patchy periventricular and subcortical white matter lesions, likely related to chronic microangiopathic changes. * 5. Remote lacunar infarct in the right cerebellar hemisphere * 01/15/19 CT CHEST: IMPRESSION: Patchy bilateral lung opacities, possibly representing multifocal pneumonia.Small to moderate bilateral pleural effusions.Status post CABG.Moderate atherosclerotic calcifications. Enlarged main pulmonary artery, possibly representing pulmonary hypertension.Mild diffuse subcutaneous edema.Mild to moderate dextroscoliosis. * 01/07/19 CXR:Cardiomegaly with interval mild increase in diffuse interstitial/air space opacities, representing edema and/or pneumonia. Small bilateral pleural effusions. * 12/16/18 2D ECHO Conclusions: * Normal left ventricular systolic function. Normal left ventricular cavity size. Moderate concentric left ventricular hypertrophy. Ejection fraction is visually estimated at 60 %. Tissue Doppler/Mitral Doppler indices are consistent with restrictive physiology with markedly elevated left atrial pressure (Stage III-IV diastolic dysfunction). * Mild right ventricular systolic dysfunction. Mild enlargement of right ventricle. * There is moderate enlargement of right atrium. * Normal appearance and function of the mitral valve with trace physiologic regurgitation. Mitral valve leaflets appear mildly thickened. Mild mitral annular calcification. Mild to moderate mitral valve regurgitation. * Normal appearance of the aortic valve. No significant aortic stenosis or insufficiency. No hemodynamically significant aortic stenosis by doppler. Aortic cusps appear mildly calcified. Mild aortic valve regurgitation. * Normal appearance of the tricuspid valve. Estimated peak PA systolic pressure 74 mmHg. There is moderate tricuspid regurgitation. PHYSICAL EXAMINATION: GENERAL: VSS, frail elderly male lethargic -- HEENT: AT, NC, anicteric NECK: Supple, CHEST: Equal chest rise bilaterally - diminishes bilateral HEART: Pulse RRR ABDOMEN: Soft / NT EXTREMITIES: Warm, dry SKIN: No rash, no diaphoresis == BILATERAL AXILLARY, GROIN, SANDY YEAST INFECTION ID ASSESSMENT 88 yo M w/multiple chronic co-morbid conditions re-admit with: 1. Recurrent ASP Pneumonitis w/ENCEPHALOPATHY -- ASP VS HCAP == w/acute hypoxic respiratory decompensation 2. 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 4. 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 Advanced rheumatoid arthritis with possibility of rheumatoid lung as well. * Patient was on Remicade and stopped using it about a year ago. 6. Hypertension w/HTN heart disease 7. Hyperlipidemia. 8. Hypothyroidism. 9. Normocytic normochromic chronic anemia 10. Bilateral groin cellulitis more likely associated with mateus, patches in groin and axilla bilaterally-> recent ABX for PNA 11. Acute on chronic renal failure likely secondary to sepsis 12. Diabetes type 2. 13. CV disease, CAD, PAD, Hx of CABGx2, carotid stent 14. Peripheral vascular disease. 15. Chronic A.Fib on anticoagulants 16. ANEMIA w/ Thrombocytopenia-> s/p EGD DECEMBER 2018 * PRBC Tx PRN 17. BPH on Hytrin 18. S/P Right epididymitis 19. Pancreatic lesion per CT-> unlikely neoplasm per oncology notes 20. Skin lesions --> s/p punch biopsy revealed allergic reaction (-)MRSA Nares ABX ALLERGIES: KNDA INVASIVES: PIV CURRENT ABX: DAY # => Vanco IV + Azactam + TOBRA INH s/p Cancidas ID RECOMMENDATIONS/PLAN: 1. Continue current ABX over the weekend + ASP precautions 2. DNR status noted which is a change from my last visit with the patient 2 weeks ago . Consultation Date/Type/Reason Admit Date/Time Jan 17, 2019 at 15:58 Initial Consult Date Requesting Provider: IVAN AKHTAR MD Date/Time of Note DATE: 02/17/19 TIME: 11:25 Exam/Review of Systems Exam Vitals Vital Signs Date Temp Pulse Resp B/P (MAP) Pulse Ox O2 O2 Flow FiO2 Time Delivery Rate 02/17/19 69 18 109/51 97 High Flow 10:00 (70) 02/17/19 65 07:34 02/17/19 98.5 04:00 02/14/19 10.0 04:05 Intake and Output 02/16/19 02/16/19 02/17/19 1515:00 23:00 07:00 IntakeIntake Total 800 ml 1190 ml 1000 ml OutputOutput Total 305 ml 250 ml 165 ml BalanceBalance 495 ml 940 ml 835 ml Results Result Diagram: 02/16/19 0420 02/16/19 0420 Results 24hrs Laboratory Tests Test 02/16/19 13:09 02/16/19 17:34 02/16/19 20:09 02/17/19 01:38 Bedside Glucose 108 205 219 269 H Test 02/17/19 04:50 02/17/19 05:05 02/17/19 08:34 Bedside Glucose 181 170 Lab Scanned BLOOD TRANSFUSIO Report N Medications Medication Current Medications Lactulose (Enulose) 20 gm DAILY PRN PO CONSTIPATION; Start 01/17/19 at 18:17 Acetaminophen (Tylenol Tab) 650 mg Q4H PRN PO PAIN Last administered on 02/11/19at 21:29; Admin Dose 650 MG; Start 01/17/19 at 18:17 [facility] This patient ramirez... PRN PRN XX WOUND CARE; Start 01/17/19 at 18:17 Albuterol/ Ipratropium (Duoneb) 3 ml Q2H RESP THERAPY PRN HHN SHORTNESS OF BREATH Last administered on 02/13/19at 05:52; Admin Dose 3 ML; Start 01/17/19 at 18:17 Bisacodyl (Dulcolax) 10 mg BID PRN PO CONSTIPATION; Start 01/17/19 at 18:17; Status Hold Folic Acid (Folic Acid) 1 mg DAILY PO Last administered on 02/17/19at 08:29; Adm in Dose 1 MG; Start 01/17/19 at 18:17 Latanoprost (Xalatan) 1 drop HS BOTH EYES Last administered on 02/16/19at 21:22; Admin Dose 1 DROP; Start 01/17/19 at 18:17 Nitroglycerin (Nitroglycerin (Sl Tab) 0.4 Mg) 0.4 tab Q5M PRN SL CHEST PAIN; Start 01/17/19 at 18:17 IV Flush (NS 3 ml) 3 ml PER PROTOCOL IV ; Start 01/17/19 at 18:17 Miscellaneous Information 1 ea NOTE XX ; Start 01/17/19 at 18:17 Glucose (Glutose) 15 gm Q15M PRN PO DECREASED GLUCOSE; Start 01/17/19 at 18:17 Glucose (Glutose) 22.5 gm Q15M PRN PO DECREASED GLUCOSE; Start 01/17/19 at 18:17 Dextrose (D50w Syringe) 25 ml Q15M PRN IV DECREASED GLUCOSE Last administered on 02/14/19at 17:23; Admin Dose 25 ML; Start 01/17/19 at 18:17 Dextrose (D50w Syringe) 50 ml Q15M PRN IV DECREASED GLUCOSE; Start 01/17/19 at 18:17 Glucagon (Glucagen) 1 mg Q15M PRN IM DECREASED GLUCOSE Last administered on 02/11/19at 17:55; Admin Dose 1 MG; Start 01/17/19 at 18:17 Glucose (Glutose) 15 gm Q15M PRN BUCCAL DECREASED GLUCOSE; Start 01/17/19 at 18:17 Bisacodyl (Dulcolax Supp) 10 mg DAILY PRN [place] CONSTIPATION; Start 01/17/19 at 18:17 Zinc Acetate/ Diphenhydramine (Benadryl 2% Cr) 1 applic Q6H PRN TOP ITCHING Last administered on 01/26/19at 07:54; Admin Dose 1 APPLIC; Start 01/19/19 at 16:37 IV Flush (NS 10 ml) 10 ml PRN PRN IV IV PROTOCOL; Start 01/20/19 at 14:30 Cyanocobalamin (Vitamin B12 Inj) 1,000 mcg Q7D IM Last administered on 02/17/19 at 08:30; Admin Dose 1,000 MCG; Start 02/03/19 at 09:00 Metoprolol Tartrate (Lopressor) 5 mg Q4H PRN IV HR>110 Hold SBP<100; Start 01/26/19 at 14:30 Vancomycin HCl (Vanco Iv Per Pharmacy) VANCOMYCIN PER PHARMACY PER PROTOCOL XX ; Start 01/27/19 at 12:00 Enoxaparin Sodium (Lovenox) 60 mg DAILY SC Last administered on 02/03/19at 08:06; Admin Dose 60 MG; Start 01/28/19 at 09:00; Status Hold Docusate Sodium (Colace Liquid Cup) 100 mg BID NGT ; Start 01/27/19 at 22:00; Status Hold Terazosin HCl (Hytrin) 10 mg HS NGT Last administered on 02/13/19at 21:27; Admin Dose 10 MG; Start 01/28/19 at 21:00 Levothyroxine Sodium (Synthroid) 125 mcg BEFORE BREAKFAST NGT Last administered on 02/17/19at 08:29; Admin Dose 125 MCG; Start 01/28/19 at 07:00 Ferrous Sulfate (Feosol Liquid Cup) 300 mg WITH MEALS GTB Last administered on 02/17/19 08:29; Admin Dose 300 MG; Start 01/28/19 at 11:30 Multivitamins (Multivitamin) 30 ml DAILY GTB Last administered on 02/17/19 08:30; Admin Dose 30 ML; Start 01/28/19 at 11:00 Diagnostic Test (Pha) (Accu-Chek) 1 ea Q4 XX Last administered on 02/17/19 09:17; Admin Dose 1 EA; Start 01/28/19 at 13:00 Nystatin/ Triamcinolone Acetonide (Mycolog Oint) 1 applic BID TOP Last administered on 02/17/19 08:31; Admin Dose 1 APPLIC; Start 01/28/19 at 22:30 Insulin Aspart (Novolog Insulin Pen) NOVOLOG *MILD* ALGORI... Q4 SC Last administered on 02/17/19 08:44; Admin Dose 1 UNIT; Start 01/29/19 at 05:00 Albuterol/ Ipratropium (Duoneb) 3 ml Q6HWA RESP THERAPY HHN Last administered on 02/17/19 07:34; Admin Dose 3 ML; Start 01/29/19 at 14:00 Epoetin Dae-epbx (RETACRIT(non-esrd)) 40,000 unit Mo@1700 SC Last administered on 02/10/19 18:06; Admin Dose 40,000 UNIT; Start 02/03/19 at 17:00 Aztreonam 1 gm/ Dextrose 50 ml @ 100 mls/hr Q12 IVPB Last administered on 02/17/19 09:19; Admin Dose 100 MLS/HR; Start 02/03/19 at 21:00 Metoprolol Tartrate (Lopressor) 12.5 mg BID PO Last administered on 02/17/19 08:30; Admin Dose 12.5 MG; Start 02/05/19 at 21:00 Eye Lubricant (Refresh Plus) 1 drop QID BOTH EYES Last administered on 02/17/19 10:32; Admin Dose 1 DROP; Start 02/06/19 at 09:00 Eye Lubricant (Akwa Oint) 1 applic HS LEFT EYE Last administered on 02/16/19 21:22; Admin Dose 1 APPLIC; Start 02/06/19 at 21:00 Multi-Ingredient Ointment (Aquaphor Oint 52.5 Gm) 1 applic BID TOP Last administered on 02/17/19 08:30; Admin Dose 1 APPLIC; Start 02/06/19 at 22:40 Lansoprazole (Prevacid) 30 mg BID@0600,1800 NGT Last administered on 02/16/19 17:44; Admin Dose 30 MG; Start 02/07/19 at 18:00 Tobramycin Sulfate/Sodium Chloride (Nilesh Inhal) 300 mg BID RESP THERAPY NEB Last administered on 02/17/19 07:48; Admin Dose 300 MG; Start 02/08/19 at 09:00 Norepinephrine 250 ml @ 1.875 mls/ hr TITRATE IV ; Start 02/14/19 at 03:00 Dextrose 1,000 ml @ 40 mls/hr Q24H IV Last administered on 02/16/19 23:10; Admin Dose 40 MLS/HR; Start 02/14/19 at 19:00 Morphine Sulfate (morphine) 0.25 mg Q4H PRN IV SEVERE PAIN LEVEL 7-10 Last administered on 02/15/19 11:23; Admin Dose 0.25 MG; Start 02/15/19 at 11:00 Vancomycin HCl 750 mg/Dextrose 250 ml @ 125 mls/hr Q96H IVPB Last administered on 02/16/19 23:09; Admin Dose 125 MLS/HR; Start 02/16/19 at 23:00 Methylprednisolone Sodium Succinate (Solu-Medrol) 40 mg Q8 IV Last administered on 02/17/19 05:34; Admin Dose 40 MG; Start 02/16/19 at 09:00 Insulin Glargine (Lantus) 5 units DAILY@2000 SC Last administered on 02/16/19 21:15; Admin Dose 5 UNITS; Start 02/16/19 at 20:00 NEDA ENRIQUEZ NP February 17, 2019 11:26
--- NOTE | 2019-02-17 15:52 | CONS ---
Assessment/Plan Assessment/Plan Assessment/Plan (Daily) 88 yo male with multiple medical problems including DM, CRF, RA, PVD and chronic afib on Eliquis who presented to [facility] 01/05/19 with severe normocytic anemia and Hg ~7. 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 DO NOT RESUSCITATE # Anemia-normocytic -Hgb trended to 7.6 from 6.6. 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 Elevated Methylmalonic acid level noted -s/p IV iron. will recheck iron panel at this time -continue vitamin b12 weekly as vitamin b12 was low normal and methylmalonic acid was elevated. Continue folate as well. -No evidence of hemolysis at this time. -Transfuse to keep Hgb > 7. 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 -This may be a pseudocyst or a precancerous pancreatic lesion. -It has been growing in size but patient is asymptomatic. EUS with biopsy is recommended and can either be done inpatient or outpatient setting. -The patient at this time is unlikely a candidate for a whipple surgery however. # Thrombocytopenia - monitor labs; s/s of bleeding Patient is seen in collaboration with Dr King. dw staff Consultation Date/Type/Reason Admit Date/Time Jan 17, 2019 at 15:58 Initial Consult Date 01/18/19 Type of Consult oncology Reason for Consultation ANEMIA PANCREATIC MASS Requesting Provider: IVAN AKHTAR MD Date/Time of Note DATE: 02/17/19 TIME: 15:45 24 HR Interval Summary Free Text/Dictation appears comfortable on supplemental oxygen by nasal cannula Hgb 7.6 today - SP 1 unit PRBC transfusion yesterday Family at bed side- all Qs answered no new events reported last night dw staff Constitutional: requiring IVF, requiring O2 Exam/Review of Systems Exam Vitals Vital Signs Date Temp Pulse Resp B/P (MAP) Pulse Ox O2 O2 Flow FiO2 Time Delivery Rate 02/17/19 99 55 13:01 02/17/19 69 17 123/50 High Flow 13:00 (74) 02/17/19 98.6 12:00 02/14/19 10.0 04:05 Intake and Output 02/16/19 02/16/19 02/17/19 1515:00 23:00 07:00 IntakeIntake Total 800 ml 1190 ml 1000 ml OutputOutput Total 305 ml 250 ml 165 ml BalanceBalance 495 ml 940 ml 835 ml Constitutional: alert, well developed Psych: nl mood/affect Eyes: nl lids ENMT: nl external ears & nose Neck: non-tender Respiratory: diminished breath sounds Cardiovascular: nl pulses, other (s1s2) Gastrointestinal: soft, non-tender Musculoskeletal: muscle weakness Extremities: edema Neurological: lethargic Skin: other (desquamarting skin ) Results Result Diagram: 02/16/1941902/16/19 0420 Results 24hrs Laboratory Tests Test 02/16/19 17:34 02/16/19 20:09 02/17/19 01:38 02/17/19 04:50 Bedside Glucose 205 219 269 H 181 Test 02/17/19 05:05 02/17/19 08:34 02/17/19 12:06 Lab Scanned BLOOD TRANSFUSIO Report N Bedside Glucose 170 238 H Medications Medication Current Medications Lactulose (Enulose) 20 gm DAILY PRN PO CONSTIPATION; Start 01/17/19 at 18:17 Acetaminophen (Tylenol Tab) 650 mg Q4H PRN PO PAIN Last administered on 02/11/19at 21:29; Admin Dose 650 MG; Start 01/17/19 at 18:17 Miscellaneous [facility] This patient ramirez... PRN PRN XX WOUND CARE; Start 01/17/19 at 18:17 Albuterol/ Ipratropium (Duoneb) 3 ml Q2H RESP THERAPY PRN HHN SHORTNESS OF BREATH Last administered on 02/13/19at 05:52; Admin Dose 3 ML; Start 01/17/19 at 18:17 Bisacodyl (Dulcolax) 10 mg BID PRN PO CONSTIPATION; Start 01/17/19 at 18:17; Status Hold Folic Acid (Folic Acid) 1 mg DAILY PO Last administered on 02/17/19at 08:29; Admin Dose 1 MG; Start 01/17/19 at 18:17 Latanoprost (Xalatan) 1 drop HS BOTH EYES Last administered on 02/16/19at 21:22; Admin Dose 1 DROP; Start 01/17/19 at 18:17 Nitroglycerin (Nitroglycerin (Sl Tab) 0.4 Mg) 0.4 tab Q5M PRN SL CHEST PAIN; Start 01/17/19 at 18:17 IV Flush (NS 3 ml) 3 ml PER PROTOCOL IV ; Start 01/17/19 at 18:17 Miscellaneous Information 1 ea NOTE XX ; Start 01/17/19 at 18:17 Glucose (Glutose) 15 gm Q15M PRN PO DECREASED GLUCOSE; Start 01/17/19 at 18:17 Glucose (Glutose) 22.5 gm Q15M PRN PO DECREASED GLUCOSE; Start 01/17/19 at 18:17 Dextrose (D50w Syringe) 25 ml Q15M PRN IV DECREASED GLUCOSE Last administered on 02/14/19at 17:23; Admin Dose 25 ML; Start 01/17/19 at 18:17 Dextrose (D50w Syringe) 50 ml Q15M PRN IV DECREASED GLUCOSE; Start 01/17/19 at 18:17 Glucagon (Glucagen) 1 mg Q15M PRN IM DECREASED GLUCOSE Last administered on 02/11/19at 17:55; Admin Dose 1 MG; Start 01/17/19 at 18:17 Glucose (Glutose) 15 gm Q15M PRN BUCCAL DECREASED GLUCOSE; Start 01/17/19 at 18:17 Bisacodyl (Dulcolax Supp) 10 mg DAILY PRN [place] CONSTIPATION; Start 01/17/19 at 18:17 Zinc Acetate/ Diphenhydramine (Benadryl 2% Cr) 1 applic Q6H PRN TOP ITCHING Last administered on 01/26/19at 07:54; Admin Dose 1 APPLIC; Start 01/19/19 at 16:37 IV Flush (NS 10 ml) 10 ml PRN PRN IV IV PROTOCOL; Start 01/20/19 at 14:30 Cyanocobalamin (Vitamin B12 Inj) 1,000 mcg Q7D IM Last administered on 02/17/19at 08:30; Admin Dose 1,000 MCG; Start 02/03/19 at 09:00 Metoprolol Tartrate (Lopressor) 5 mg Q4H PRN IV HR>110 Hold SBP<100; Start 01/26/19 at 14:30 Vancomycin HCl (Vanco Iv Per Pharmacy) VANCOMYCIN PER PHARMACY PER PROTOCOL XX ; Start 01/27/19 at 12:00 Enoxaparin Sodium (Lovenox) 60 mg DAILY SC Last administered on 02/03/19 08:06; Admin Dose 60 MG; Start 01/28/19 at 09:00; Status Hold Docusate Sodium (Colace Liquid Cup) 100 mg BID NGT ; Start 01/27/19 at 22:00; Status Hold Terazosin HCl (Hytrin) 10 mg HS NGT Last administered on 02/13/19 21:27; Admin Dose 10 MG; Start 01/28/19 at 21:00 Levothyroxine Sodium (Synthroid) 125 mcg BEFORE BREAKFAST NGT Last administered on 02/17/19 08:29; Admin Dose 125 MCG; Start 01/28/19 at 07:00 Ferrous Sulfate (Feosol Liquid Cup) 300 mg WITH MEALS GTB Last administered on 02/17/19 12:21; Admin Dose 300 MG; Start 01/28/19 at 11:30 Multivitamins (Multivitamin) 30 ml DAILY GTB Last administered on 02/17/19 08:30; Admin Dose 30 ML; Start 01/28/19 at 11:00 Diagnostic Test (Pha) (Accu-Chek) 1 ea Q4 XX Last administered on 02/17/19 12:21; Admin Dose 1 EA; Start 01/28/19 at 13:00 Nystatin/ Triamcinolone Acetonide (Mycolog Oint) 1 applic BID TOP Last adm inistered on 02/17/19 08:31; Admin Dose 1 APPLIC; Start 01/28/19 at 22:30 Insulin Aspart (Novolog Insulin Pen) NOVOLOG *MILD* ALGORI... Q4 SC Last administered on 02/17/19 12:10; Admin Dose 3 UNIT; Start 01/29/19 at 05:00 Albuterol/ Ipratropium (Duoneb) 3 ml Q6HWA RESP THERAPY HHN Last administered on 02/17/19 13:00; Admin Dose 3 ML; Start 01/29/19 at 14:00 Epoetin Dae-epbx (RETACRIT(non-esrd)) 40,000 unit Mo@1700 SC Last administered on 02/10/19 18:06; Admin Dose 40,000 UNIT; Start 02/03/19 at 17:00 Aztreonam 1 gm/ Dextrose 50 ml @ 100 mls/hr Q12 IVPB Last administered on 02/17/19 09:19; Admin Dose 100 MLS/HR; Start 02/03/19 at 21:00 Metoprolol Tartrate (Lopressor) 12.5 mg BID PO Last administered on 02/17/19 08:30; Admin Dose 12.5 MG; Start 02/05/19 at 21:00 Eye Lubricant (Refresh Plus) 1 drop QID BOTH EYES Last administered on 02/17/19 12:21; Admin Dose 1 DROP; Start 02/06/19 at 09:00 Eye Lubricant (Akwa Oint) 1 applic HS LEFT EYE Last administered on 02/16/19 21:22; Admin Dose 1 APPLIC; Start 02/06/19 at 21:00 Multi-Ingredient Ointment (Aquaphor Oint 52.5 Gm) 1 applic BID TOP Last administered on 02/17/19 08:30; Admin Dose 1 APPLIC; Start 02/06/19 at 22:40 Lansoprazole (Prevacid) 30 mg BID@0600,1800 NGT Last administered on 02/16/19 17:44; Admin Dose 30 MG; Start 02/07/19 at 18:00 Tobramycin Sulfate/Sodium Chloride (Nilesh Inhal) 300 mg BID RESP THERAPY NEB Last administered on 02/17/19 07:48; Admin Dose 300 MG; Start 02/08/19 at 09:00 Norepinephrine 250 ml @ 1.875 mls/ hr TITRATE IV ; Start 02/14/19 at 03:00 Dextrose 1,000 ml @ 40 mls/hr Q24H IV Last administered on 02/16/19 23:10; Admin Dose 40 MLS/HR; Start 02/14/19 at 19:00 Morphine Sulfate (morphine) 0.25 mg Q4H PRN IV SEVERE PAIN LEVEL 7-10 Last administered on 02/15/19 11:23; Admin Dose 0.25 MG; Start 02/15/19 at 11:00 Vancomycin HCl 750 mg/Dextrose 250 ml @ 125 mls/hr Q96H IVPB Last administered on 02/16/19at 23:09; Admin Dose 125 MLS/HR; Start 02/16/19 at 23:00 Methylprednisolone Sodium Succinate (Solu-Medrol) 40 mg Q8 IV Last administered on 02/17/19at 15:42; Admin Dose 40 MG; Start 02/16/19 at 09:00 Insulin Glargine (Lantus) 5 units DAILY@2000 SC Last administered on 02/16/19at 21:15; Admin Dose 5 UNITS; Start 02/16/19 at 20:00 JESI GATES February 17, 2019 15:52
--- NOTE | 2019-02-17 16:09 | CONS ---
Consultation Date/Type/Reason Admit Date/Time Jan 17, 2019 at 15:58 Initial Consult Date 01/18/19 Requesting Provider: IVAN AKHTAR MD Date/Time of Note DATE: 02/17/19 TIME: 16:07 24 HR Interval Summary Free Text/Dictation Late entry Spoke with daughter again , she has see some one have CPR in the community lately and changed her mind to change to DNR/DNI... Exam/Review of Systems Exam Vitals Vital Signs Date Temp Pulse Resp B/P (MAP) Pulse Ox O2 O2 Flow FiO2 Time Delivery Rate 02/17/19 99 55 13:01 02/17/19 69 17 123/50 High Flow 13:00 (74) 02/17/19 98.6 12:00 02/14/19 10.0 04:05 Intake and Output 02/16/19 02/16/19 02/17/19 1515:00 23:00 07:00 IntakeIntake Total 800 ml 1190 ml 1000 ml OutputOutput Total 305 ml 250 ml 165 ml BalanceBalance 495 ml 940 ml 835 ml Results Result Diagram: 02/16/19 0420 02/16/19 0420 Results 24hrs Laboratory Tests Test 02/16/19 17:34 02/16/19 20:09 02/17/19 01:38 02/17/19 04:50 Bedside Glucose 205 219 269 H 181 Test 02/17/19 05:05 02/17/19 08:34 02/17/19 12:06 02/17/19 15:50 Lab Scanned BLOOD TRANSFUSIO Report N Bedside Glucose 170 238 H 209 Medications Medication Current Medications Lactulose (Enulose) 20 gm DAILY PRN PO CONSTIPATION; Start 01/17/19 at 18:17 Acetaminophen (Tylenol Tab) 650 mg Q4H PRN PO PAIN Last administered on 02/11/19at 21:29; Admin Dose 650 MG; Start 01/17/19 at 18:17 Miscellaneous Information (Pending [facility] Order For Wound Care) This patient ramirez... PRN PRN XX WOUND CARE; Start 01/17/19 at 18:17 Albuterol/ Ipratropium (Duoneb) 3 ml Q2H RESP THERAPY PRN HHN SHORTNESS OF BREATH Last administered on 02/13/19at 05:52; Admin Dose 3 ML; Start 01/17/19 at 18:17 Bisacodyl (Dulcolax) 10 mg BID PRN PO CONSTIPATION; Start 01/17/19 at 18:17; Status Hold Folic Acid (Folic Acid) 1 mg DAILY PO Last administered on 02/17/19at 08:29; Admin Dose 1 MG; Start 01/17/19 at 18:17 Latanoprost (Xalatan) 1 drop HS BOTH EYES Last administered on 02/16/19at 21:22; Admin Dose 1 DROP; Start 01/17/19 at 18:17 Nitroglycerin (Nitroglycerin (Sl Tab) 0.4 Mg) 0.4 tab Q5M PRN SL CHEST PAIN; Start 01/17/19 at 18:17 IV Flush (NS 3 ml) 3 ml PER PROTOCOL IV ; Start 01/17/19 at 18:17 Miscellaneous Information 1 ea NOTE XX ; Start 01/17/19 at 18:17 Glucose (Glutose) 15 gm Q15M PRN PO DECREASED GLUCOSE; Start 01/17/19 at 18:17 Glucose (Glutose) 22.5 gm Q15M PRN PO DECREASED GLUCOSE; Start 01/17/19 at 18:17 Dextrose (D50w Syringe) 25 ml Q15M PRN IV DECREASED GLUCOSE Last administered on 02/14/19at 17:23; Admin Dose 25 ML; Start 01/17/19 at 18:17 Dextrose (D50w Syringe) 50 ml Q15M PRN IV DECREASED GLUCOSE; Start 01/17/19 at 18:17 Glucagon (Glucagen) 1 mg Q15M PRN IM DECREASED GLUCOSE Last administered on 02/11/19at 17:55; Admin Dose 1 MG; Start 01/17/19 at 18:17 Glucose (Glutose) 15 gm Q15M PRN BUCCAL DECREASED GLUCOSE; Start 01/17/19 at 18:17 Bisacodyl (Dulcolax Supp) 10 mg DAILY PRN [place] CONSTIPATION; Start 01/17/19 at 18:17 Zinc Acetate/ Diphenhydramine (Benadryl 2% Cr) 1 applic Q6H PRN TOP ITCHING Last administered on 01/26/19at 07:54; Admin Dose 1 APPLIC; Start 01/19/19 at 16:37 IV Flush (NS 10 ml) 10 ml PRN PRN IV IV PROTOCOL; Start 01/20/19 at 14:30 Cyanocobalamin (Vitamin B12 Inj) 1,000 mcg Q7D IM Last administered on 02/17/19 t 08:30; Admin Dose 1,000 MCG; Start 02/03/19 at 09:00 Metoprolol Tartrate (Lopressor) 5 mg Q4H PRN IV HR>110 Hold SBP<100; Start 01/26/19 at 14:30 Vancomycin HCl (Vanco Iv Per Pharmacy) VANCOMYCIN PER PHARMACY PER PROTOCOL XX ; Start 01/27/19 at 12:00 Enoxaparin Sodium (Lovenox) 60 mg DAILY SC Last administered on 02/03/19 08:06; Admin Dose 60 MG; Start 01/28/19 at 09:00; Status Hold Docusate Sodium (Colace Liquid Cup) 100 mg BID NGT ; Start 01/27/19 at 22:00; Status Hold Terazosin HCl (Hytrin) 10 mg HS NGT Last administered on 02/13/19 21:27; Admin Dose 10 MG; Start 01/28/19 at 21:00 Levothyroxine Sodium (Synthroid) 125 mcg BEFORE BREAKFAST NGT Last administered on 02/17/19 08:29; Admin Dose 125 MCG; Start 01/28/19 at 07:00 Ferrous Sulfate (Feosol Liquid Cup) 300 mg WITH MEALS GTB Last administered on 02/17/19 12:21; Admin Dose 300 MG; Start 01/28/19 at 11:30 Multivitamins (Multivitamin) 30 ml DAILY GTB Last administered on 02/17/19 08:30; Admin Dose 30 ML; Start 01/28/19 at 11:00 Diagnostic Test (Pha) (Accu-Chek) 1 ea Q4 XX Last administered on 02/17/19 16:04; Admin Dose 1 EA; Start 01/28/19 at 13:00 Nystatin/ Triamcinolone Acetonide (Mycolog Oint) 1 applic BID TOP Last administered on 02/17/19 08:31; Admin Dose 1 APPLIC; Start 01/28/19 at 22:30 Insulin Aspart (Novolog Insulin Pen) NOVOLOG *MILD* ALGORI... Q4 SC Last administered on 02/17/19 16:04; Admin Dose 2 UNIT; Start 01/29/19 at 05:00 Albuterol/ Ipratropium (Duoneb) 3 ml Q6HWA RESP THERAPY HHN Last administered on 02/17/19 13:00; Admin Dose 3 ML; Start 01/29/19 at 14:00 Epoetin Dae-epbx (RETACRIT(non-esrd)) 40,000 unit Mo@1700 SC Last administered on 02/10/19 18:06; Admin Dose 40,000 UNIT; Start 02/03/19 at 17:00 Aztreonam 1 gm/ Dextrose 50 ml @ 100 mls/hr Q12 IVPB Last administered on 02/17/19 09:19; Admin Dose 100 MLS/HR; Start 02/03/19 at 21:00 Metoprolol Tartrate (Lopressor) 12.5 mg BID PO Last administered on 02/17/19 08:30; Admin Dose 12.5 MG; Start 02/05/19 at 21:00 Eye Lubricant (Refresh Plus) 1 drop QID BOTH EYES Last administered on 02/17/19 16:04; Admin Dose 1 DROP; Start 02/06/19 at 09:00 Eye Lubricant (Akwa Oint) 1 applic HS LEFT EYE Last administered on 02/16/19 21:22; Admin Dose 1 APPLIC; Start 02/06/19 at 21:00 Multi-Ingredient Ointment (Aquaphor Oint 52.5 Gm) 1 applic BID TOP Last administered on 02/17/19 08:30; Admin Dose 1 APPLIC; Start 02/06/19 at 22:40 Lansoprazole (Prevacid) 30 mg BID@0600,1800 NGT Last administered on 02/16/19 17:44; Admin Dose 30 MG; Start 02/07/19 at 18:00 Tobramycin Sulfate/Sodium Chloride (Nilesh Inhal) 300 mg BID RESP THERAPY NEB Last administered on 02/17/19 07:48; Admin Dose 300 MG; Start 02/08/19 at 09:00 Norepinephrine 250 ml @ 1.875 mls/ hr TITRATE IV ; Start 02/14/19 at 03:00 Dextrose 1,000 ml @ 30 mls/hr Q24H IV Last administered on 02/16/19 23:10; Admin Dose 40 MLS/HR; Start 02/14/19 at 19:00 Morphine Sulfate (morphine) 0.25 mg Q4H PRN IV SEVERE PAIN LEVEL 7-10 Last administered on 02/15/19 11:23; Admin Dose 0.25 MG; Start 02/15/19 at 11:00 Vancomycin HCl 750 mg/Dextrose 250 ml @ 125 mls/hr Q96H IVPB Last administered on 02/16/19at 23:09; Admin Dose 125 MLS/HR; Start 02/16/19 at 23:00 Methylprednisolone Sodium Succinate (Solu-Medrol) 40 mg Q8 IV Last administered on 02/17/19at 15:42; Admin Dose 40 MG; Start 02/16/19 at 09:00 Insulin Glargine (Lantus) 5 units DAILY@2000 SC Last administered on 02/16/19at 21:15; Admin Dose 5 UNITS; Start 02/16/19 at 20:00 MARGARITO WILSON February 17, 2019 16:09
[2019-02-17] MEDS: EPOETIN ALFA-EPBX (NON-ESRD 10,000 UNIT/ML VIAL SC SCH (17:18)
[2019-02-17] MEDS: INSULIN GLARGINE [LANTus] (100 UNITS/ML) SYG SC SCH (19:57)
[2019-02-17] MEDS ORDERED: DEXTROSE 10% 1,000 ML IV SCH (20:30)
[2019-02-17] MEDS: METOPROLOL 25 MG TAB NGT SCH (21:37)
[2019-02-17] MEDS: TERAZOSIN 5 MG CAP NGT SCH (21:38)
[2019-02-17] MEDS: LATANOPROST 0.005% 2.5 ML OPH BOTH EYES SCH (21:51)
[2019-02-17] MEDS: OCULAR LUBRICANT 3.5 GM OPH OINT LEFT EYE SCH (21:51)
[2019-02-18] VITALS (20 sets, daily range): BP systolic 95–125; BP diastolic 37–68; PULSE 67–86; RESP 19–25
[2019-02-18] MEDS: INSULIN ASPART [NOVOLOG] 3 ML PEN SC SCH ×6 (00:24→21:34)
[2019-02-18] MEDS: LEVOTHYROXINE 125 MCG TAB NGT SCH (05:44)
[2019-02-18] MEDS: FERROUS SULFATE 60 MG/ML 5ML CUP GTB SCH ×3 (05:44→17:35)
[2019-02-18] MEDS: METHYLPREDNISOLONE 40 MG INJ IV SCH ×2 (05:44→20:43)
[2019-02-18] MEDS: LANSOPRAZOLE 30 MG CAP NGT SCH ×2 (05:44→17:35)
--- NOTE | 2019-02-18 07:45 | CONS ---
Consult Date/Type/Reason Admit Date/Time Jan 17, 2019 at 15:58 Initial Consult Date Type of Consultation: Pulm/CCM Requesting Provider: IVAN AKHTAR MD Date/Time of Note DATE: 02/18/19 TIME: 07:43 Subjective NO acute events - pt in ICU - DNI/DNR now - not really aware - BP stable - H/H drifting down to 7.3 - in a. fib - rate controlled. ROS: No fever, no chills, no nausea, no vomiting, no diarrhea/constipation - per nurse Objective Vitals Vital Signs Date Temp Pulse Resp B/P (MAP) Pulse Ox O2 O2 Flow FiO2 Time Delivery Rate 02/18/19 74 22 101/37 96 High Flow 06:00 (58) 02/18/19 50 04:30 02/18/19 98.2 04:00 Intake and Output 02/17/19 02/17/19 02/18/19 1515:00 23:00 07:00 IntakeIntake Total 1120 ml 810 ml 780 ml OutputOutput Total 240 ml 210 ml 400 ml BalanceBalance 880 ml 600 ml 380 ml Exam General: WN/WD/NAD, AOx 0 HEENT: Unicetric/atraumatic/EOMI (does not follow commands) NECK: JVD elevated, no thyromegaly Lymph: no lymphadenopathy HEART: ir irregular with no S3, II/ systolic murmur at apex LUNGS: Coarse sounds ABD: soft, NT, ND, +BS : Intact Neuro: non focal SKIN: chronic changes EXT: trace edema Results/Medications Result Diagram: 02/18/19 0356 02/18/19 0356 Results 24 hrs Laboratory Tests Test 02/17/19 08:34 02/17/19 12:06 02/17/19 15:50 02/17/19 19:52 Bedside Glucose 170 238 H 209 200 Test 02/18/19 00:21 02/18/19 03:56 02/18/19 03:58 Bedside Glucose 229 H 228 H White Blood Count 10.5 Red Blood Count 2.57 L Hemoglobin 7.3 L Hematocrit 24.9 L Mean Corpuscular 96.9 Volume Mean Corpuscular 28.4 L Hemoglobin Mean Corpuscular 29.3 L Hemoglobin Concent Red Cell 19.7 H Distribution Width Platelet Count 87 L Mean Platelet Volume 12.8 H Immature 0.300 Granulocytes % Neutrophils % 86.1 H Lymphocytes % 10.4 L Monocytes % 3.1 Eosinophils % 0.0 Basophils % 0.1 Nucleated Red Blood 0.8 H Cells % Immature 0.030 Granulocytes # Neutrophils # 9.0 H Lymphocytes # 1.1 Monocytes # 0.3 Eosinophils # 0.0 Basophils # 0.0 Nucleated Red Blood 0.1 H Cells # Sodium Level 145 H Potassium Level 4.1 Chloride Level 109 Carbon Dioxide Level 30 Anion Gap 6 Blood Urea Nitrogen 98 H Creatinine 2.11 H Est Glomerular Filtrat Rate mL/min Glucose Level 195 # Calcium Level 8.0 L Home Meds Active Scripts Apixaban* (Eliquis*) 5 Mg Tablet, 2.5 MG PO BID for 30 Days, TAB Prov:IVAN AKHTAR MD 12/20/18 Metoprolol Tartrate* (Lopressor*) 50 Mg Tab, 50 MG PO BID for 30 Days, TAB Prov:COOPER CARO 12/20/18 Reported Medications Furosemide* (Lasix*) 20 Mg Tablet, 20 MG PO BID, TAB 01/05/19 Polyethylene Glycol* (Miralax*) 17 Gm Powd.pack, 17 GM PO DAILY, #30 PACKET 12/15/18 Nifedipine* (Nifedipine ER*) 60 Mg Tablet.sa, 60 MG PO DAILY, TAB.SA 12/15/18 Bisacodyl* (Bisacodyl*) 5 Mg Tablet.dr, 10 MG PO BID PRN for CONSTIPATION, TAB 12/15/18 Pregabalin* (Lyrica*) 25 Mg Capsule, 25 MG PO TID, CAP 12/15/18 Bimatoprost* (Lumigan*) 0.01%-5 Ml Opht Drops, 1 DROP BOTH EYES HS, EA 03/02/18 Cetirizine Hcl* (Cetirizine Hcl*) 10 Mg Tablet, 10 MG PO DAILY, #30 TAB 03/02/18 Insulin Glargine* (Lantus*) 100 Unit/Ml Soln, 10 UNIT SC QHS, #1 VIAL 03/02/18 Ergocalciferol (Vitamin D2) (VITAMIN D2) 2,000 Unit Tablet, 2000 UNIT PO DAILY, TAB 03/02/18 Famotidine* (Famotidine*) 20 Mg Tablet, 20 MG PO DAILY, #30 TAB 03/02/18 Ferrous Sulfate* (Ferrous Sulfate*) 325 Mg Tabec, 325 MG PO BID, TAB 03/02/18 Nitroglycerin* (Nitrostat*) 0.4 Mg Tab.subl, 0.4 MG SL Q5MIN PRN for CHEST PAIN, BOTTLE 03/02/18 Terazosin Hcl* (Terazosin Hcl*) 10 Mg Capsule, 10 MG PO HS, CAP 03/02/18 Levothyroxine Sodium* (Levoxyl*) 125 Mcg Tablet, 125 MCG PO BEFORE BREAKFAST, #30 TAB 03/02/18 Allopurinol* (Allopurinol*) 100 Mg Tablet, 100 MG PO BID, TAB 03/02/18 Atorvastatin* (Atorvastatin*) 40 Mg Tablet, 40 MG PO QHS, #30 TAB 03/02/18 Folic Acid* (Folic Acid*) 1 Mg Tablet, 1 MG PO DAILY, TAB 03/02/18 Medications Current Medications Lactulose (Enulose) 20 gm DAILY PRN PO CONSTIPATION; Start 01/17/19 at 18:17 Acetaminophen (Tylenol Tab) 650 mg Q4H PRN PO PAIN Last administered on 02/11/19at 21:29; Admin Dose 650 MG; Start 01/17/19 at 18:17 Miscellaneous Information (Pending [facility] Order For Wound Care) This patient ramirez... PRN PRN XX WOUND CARE; Start 01/17/19 at 18:17 Albuterol/ Ipratropium (Duoneb) 3 ml Q2H RESP THERAPY PRN HHN SHORTNESS OF BREATH Last administered on 02/13/19at 05:52; Admin Dose 3 ML; Start 01/17/19 at 18:17 Bisacodyl (Dulcolax) 10 mg BID PRN PO CONSTIPATION; Start 01/17/19 at 18:17; Status Hold Folic Acid (Folic Acid) 1 mg DAILY PO Last administered on 02/17/19at 08:29; Admin Dose 1 MG; Start 01/17/19 at 18:17 Latanoprost (Xalatan) 1 drop HS BOTH EYES Last administered on 02/17/19at 21:51; Admin Dose 1 DROP; Start 01/17/19 at 18:17 Nitroglycerin (Nitroglycerin (Sl Tab) 0.4 Mg) 0.4 tab Q5M PRN SL CHEST PAIN; Start 01/17/19 at 18:17 IV Flush (NS 3 ml) 3 ml PER PROTOCOL IV ; Start 01/17/19 at 18:17 Miscellaneous Information 1 ea NOTE XX ; Start 01/17/19 at 18:17 Glucose (Glutose) 15 gm Q15M PRN PO DECREASED GLUCOSE; Start 01/17/19 at 18:17 Glucose (Glutose) 22.5 gm Q15M PRN PO DECREASED GLUCOSE; Start 01/17/19 at 18:17 Dextrose (D50w Syringe) 25 ml Q15M PRN IV DECREASED GLUCOSE Last administered on 02/14/19at 17:23; Admin Dose 25 ML; Start 01/17/19 at 18:17 Dextrose (D50w Syringe) 50 ml Q15M PRN IV DECREASED GLUCOSE; Start 01/17/19 at 18:17 Glucagon (Glucagen) 1 mg Q15M PRN IM DECREASED GLUCOSE Last administered on 02/11/19at 17:55; Admin Dose 1 MG; Start 01/17/19 at 18:17 Glucose (Glutose) 15 gm Q15M PRN BUCCAL DECREASED GLUCOSE; Start 01/17/19 at 18:17 Bisacodyl (Dulcolax Supp) 10 mg DAILY PRN [place] CONSTIPATION; Start 01/17/19 at 18:17 Zinc Acetate/ Diphenhydramine (Benadryl 2% Cr) 1 applic Q6H PRN TOP ITCHING Last administered on 01/26/19at 07:54; Admin Dose 1 APPLIC; Start 01/19/19 at 16:37 IV Flush (NS 10 ml) 10 ml PRN PRN IV IV PROTOCOL; Start 01/20/19 at 14:30 Cyanocobalamin (Vitamin B12 Inj) 1,000 mcg Q7D IM Last administered on 02/17/19at 08:30; Admin Dose 1,000 MCG; Start 02/03/19 at 09:00 Metoprolol Tartrate (Lopressor) 5 mg Q4H PRN IV HR>110 Hold SBP<100; Start 01/26/19 at 14:30 Vancomycin HCl (Vanco Iv Per Pharmacy) VANCOMYCIN PER PHARMACY PER PROTOCOL XX ; Start 01/27/19 at 12:00 Enoxaparin Sodium (Lovenox) 60 mg DAILY SC Last administered on 02/03/19at 08:06; Admin Dose 60 MG; Start 01/28/19 at 09:00; Status Hold Docusate Sodium (Colace Liquid Cup) 100 mg BID NGT ; Start 01/27/19 at 22:00; Status Hold Terazosin HCl (Hytrin) 10 mg HS NGT Last administered on 02/17/19 21:38; Admin Dose 10 MG; Start 01/28/19 at 21:00 Levothyroxine Sodium (Synthroid) 125 mcg BEFORE BREAKFAST NGT Last administered on 02/18/19 05:44; Admin Dose 125 MCG; Start 01/28/19 at 07:00 Ferrous Sulfate (Feosol Liquid Cup) 300 mg WITH MEALS GTB Last administered on 02/18/19 05:44; Admin Dose 300 MG; Start 01/28/19 at 11:30 Multivitamins (Multivitamin) 30 ml DAILY GTB Last administered on 02/17/19 08:30; Admin Dose 30 ML; Start 01/28/19 at 11:00 Nystatin/ Triamcinolone Acetonide (Mycolog Oint) 1 applic BID TOP Last administered on 02/17/19 21:38; Admin Dose 1 APPLIC; Start 01/28/19 at 22:30 Insulin Aspart (Novolog Insulin Pen) NOVOLOG *MILD* ALGORI... Q4 SC Last administered on 02/18/19 04:04; Admin Dose 3 UNIT; Start 01/29/19 at 05:00 Albuterol/ Ipratropium (Duoneb) 3 ml Q6HWA RESP THERAPY HHN Last administered on 02/17/19 20:12; Admin Dose 3 ML; Start 01/29/19 at 14:00 Epoetin Dae-epbx (RETACRIT(non-esrd)) 40,000 unit Mo@1700 SC Last administered on 02/17/19 17:18; Admin Dose 40,000 UNIT; Start 02/03/19 at 17:00 Aztreonam 1 gm/ Dextrose 50 ml @ 100 mls/hr Q12 IVPB Last administered on 02/17/19 21:51; Admin Dose 100 MLS/HR; Start 02/03/19 at 21:00 Eye Lubricant (Refresh Plus) 1 drop QID BOTH EYES Last administered on 16:04; Admin Dose 1 DROP; Start 02/06/19 at 09:00 Eye Lubricant (Akwa Oint) 1 applic HS LEFT EYE Last administered on 02/17/19 21:51; Admin Dose 1 APPLIC; Start 02/06/19 at 21:00 Multi-Ingredient Ointment (Aquaphor Oint 52.5 Gm) 1 applic BID TOP Last administered on 02/17/19 21:39; Admin Dose 1 APPLIC; Start 02/06/19 at 22:40 Lansoprazole (Prevacid) 30 mg BID@0600,1800 NGT Last administered on 02/18/19 05:44; Admin Dose 30 MG; Start 02/07/19 at 18:00 Tobramycin Sulfate/Sodium Chloride (Nilesh Inhal) 300 mg BID RESP THERAPY NEB Last administered on 02/17/19 07:48; Admin Dose 300 MG; Start 02/08/19 at 09:00 Norepinephrine 250 ml @ 1.875 mls/ hr TITRATE IV ; Start 02/14/19 at 03:00 Morphine Sulfate (morphine) 0.25 mg Q4H PRN IV SEVERE PAIN LEVEL 7-10 Last administered on 02/15/19 11:23; Admin Dose 0.25 MG; Start 02/15/19 at 11:00 Vancomycin HCl 750 mg/Dextrose 250 ml @ 125 mls/hr Q96H IVPB Last administered on 02/16/19 23:09; Admin Dose 125 MLS/HR; Start 02/16/19 at 23:00 Methylprednisolone Sodium Succinate (Solu-Medrol) 40 mg Q8 IV Last administered on 02/18/19 05:44; Admin Dose 40 MG; Start 02/16/19 at 09:00 Insulin Glargine (Lantus) 5 units DAILY@2000 SC Last administered on 02/17/19 19:57; Admin Dose 5 UNITS; Start 02/16/19 at 20:00 Metoprolol Tartrate (Lopressor) 12.5 mg BID NGT Last administered on 02/17/19 21:37; Admin Dose 12.5 MG; Start 02/17/19 at 21:00 Dextrose 3,600 ml @ 30 mls/hr Q24H IV Last administered on 02/17/19 21:39; Admin Dose 30 MLS/HR; Start 02/17/19 at 20:30; Stop 02/22/19 at 20:29 Assessment/Plan Hospital Course (Demo Recall) 1. Atrial fibrillation, currently rate controlled.-off systemic anticoagulation due to anemia. RATE CONTROLLED. BP low but stable. 2. CHF - chronic, DD. EF of 60%.Spot diuresis as needed. Con't to follow. Overall unchanged. CHRONIC. 3. Tricuspid regurgitation, moderate by most recent echo. 4. Acute on chronic renal failure - Cr up to 2.1 - avoid nephrotoxic meds. . 5. Hyponatremia - going up to 145s - check am cortisol level. BETTER and more alert. 5. Possible pneumonia - on anti-bx now. ID follows On pressors now. Traeted. 6. History of coronary artery disease, status post coronary artery bypass graft surgery. Treated. 7. Dyslipidemia. 8. Rheumatoid arthritis - Rx per rheumatology. 9. Groin cellulitis. 10. Anemia-worsening again today requiring transfusions - trending down, will monitor. Blood Tx 3 days ago. 11. Diabetes mellitus. 12. Sepsis - skin looks better. Con't supportive rX. LOU PATINO MD February 18, 2019 07:45
[2019-02-18] MEDS: TOBRAMYCIN/0.25NS 300 MG/5 ML INHAL NEB SCH ×2 (08:01→09:00)
[2019-02-18] MEDS: ALBUTEROL/IPRATROPIUM (NEB) 3 ML AMP HHN SCH ×3 (08:01→20:00)
--- NOTE | 2019-02-18 08:17 | CONS ---
Assessment/Plan Assessment/Plan Hospital Course (Demo Recall) 88 yo male presents from [facility] for SOB and febrile 1. Severe anemia likely due to chronic disease, last work up while admitted to [facility] about a week ago was neg for GI bleeding, including EGD/colon which was done -s/p EGD and colonoscopy by Dr Frost 01/09/19 which didn't find an obvious GI etiology to explain anemia. AVM or a small lesion could be missed due to poor prep. Pt likely needs capsule endoscopy -Neg fob, elevate retic, Low iron, tibc, [place] [id number] --pt's FOB had been negative until 02/05 pt had positive FOB 2. Cystic lesion along pancreas body - 4.3 cm cystic lesion along the pancreas body, enlarged since 10/10/2012 (previously 2.4 cm). 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 -CEA wnl 3. Severe gastritis 4. Hemorrhoids 5. Hital hernia 6. A fib, -eliquis was stopped 01/06 during previous admission, on ASA 7. COPD 8. HTN 9. Hypothyroidism 10. Bilateral groin cellulitis 11. Rheumatoid arthritis. 12. Diabetes mellitus. 13. Peripheral vascular disease. 14. CHF 15. 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 Sepsis secondary to pneumonia 18. Encephalopathy secondary to sepsis 19. Hypothermia 20. Coagulopathy -INR 1.77 21. Thrombocytopenia -decreasing 22. Positive wound culture -CORYNEBACTERIUM SPECIES Plan: Iron profile, ferritin, FOB, CBC Once pt is stable we will proceed with push endoscopy and peg placement DNR status Monitor HH and replace as needed Pt will need outpatient EUS to evaluate pancreatic mass Pt examined and plan of care discussed with Dr. Frost Consultation Date/Type/Reason Admit Date/Time Jan 17, 2019 at 15:58 Initial Consult Date 01/18/19 Requesting Provider: IVAN AKHTAR MD Date/Time of Note DATE: 02/18/19 TIME: 07:58 24 HR Interval Summary Free Text/Dictation HH continues to drop, no am labs today. Platelets 87 from 02/17. Hi Srini O2 at 50%, with sp02 in high 90s. SBP in 90s and low 100s off of pressors. Denies abdominal pain or nausea. Exam/Review of Systems Exam Vitals Vital Signs Date Temp Pulse Resp B/P (MAP) Pulse Ox O2 O2 Flow FiO2 Time Delivery Rate 02/18/19 74 22 101/37 96 High Flow 06:00 (58) 02/18/19 50 04:30 02/18/19 98.2 04:00 Intake and Output 02/17/19 02/17/19 02/18/19 1515:00 23:00 07:00 IntakeIntake Total 1120 ml 810 ml 780 ml OutputOutput Total 240 ml 210 ml 400 ml BalanceBalance 880 ml 600 ml 380 ml Constitutional: alert Psych: no complaints Head: normocephalic Eyes: PERRL Respiratory: normal air movement, diminished breath sounds Cardiovascular: regular rate and rhythm Gastrointestinal: soft, non-tender, bowel sounds Extremities: edema, pitting pedal edema Neurological: other (responsive and answers my questions) Results Result Diagram: 02/18/19 0356 02/18/19 0356 Results 24hrs Laboratory Tests Test 02/17/19 08:34 02/17/19 12:06 02/17/19 15:50 02/17/19 19:52 Bedside Glucose 170 238 H 209 200 Test 02/18/19 00:21 02/18/19 03:56 02/18/19 03:58 Bedside Glucose 229 H 228 H White Blood Count 10.5 Red Blood Count 2.57 L Hemoglobin 7.3 L Hematocrit 24.9 L Mean Corpuscular 96.9 Volume Mean Corpuscular 28.4 L Hemoglobin Mean Corpuscular 29.3 L Hemoglobin Concent Red Cell 19.7 H Distribution Width Platelet Count 87 L Mean Platelet Volume 12.8 H Immature 0.300 Granulocytes % Neutrophils % 86.1 H Lymphocytes % 10.4 L Monocytes % 3.1 Eosinophils % 0.0 Basophils % 0.1 Nucleated Red Blood 0.8 H Cells % Immature 0.030 Granulocytes # Neutrophils # 9.0 H Lymphocytes # 1.1 Monocytes # 0.3 Eosinophils # 0.0 Basophils # 0.0 Nucleated Red Blood 0.1 H Cells # Sodium Level 145 H Potassium Level 4.1 Chloride Level 109 Carbon Dioxide Level 30 Anion Gap 6 Blood Urea Nitrogen 98 H Creatinine 2.11 H Est Glomerular Filtrat Rate mL/min Glucose Level 195 # Calcium Level 8.0 L Medications Medication Current Medications Lactulose (Enulose) 20 gm DAILY PRN PO CONSTIPATION; Start 01/17/19 at 18:17 Acetaminophen (Tylenol Tab) 650 mg Q4H PRN PO PAIN Last administered on 02/11/19at 21:29; Admin Dose 650 MG; Start 01/17/19 at 18:17 Miscellaneous Information (Pending [facility] Order For Wound Care) This patient ramirez... PRN PRN XX WOUND CARE; Start 01/17/19 at 18:17 Albuterol/ Ipratropium (Duoneb) 3 ml Q2H RESP THERAPY PRN HHN SHORTNESS OF BREATH Last administered on 02/13/19at 05:52; Admin Dose 3 ML; Start 01/17/19 at 18:17 Bisacodyl (Dulcolax) 10 mg BID PRN PO CONSTIPATION; Start 01/17/19 at 18:17; Status Hold Folic Acid (Folic Acid) 1 mg DAILY PO Last administered on 02/17/19at 08:29; Admin Dose 1 MG; Start 01/17/19 at 18:17 Latanoprost (Xalatan) 1 drop HS BOTH EYES Last administered on 02/17/19at 21:51; Admin Dose 1 DROP; Start 01/17/19 at 18:17 Nitroglycerin (Nitroglycerin (Sl Tab) 0.4 Mg) 0.4 tab Q5M PRN SL CHEST PAIN; Start 01/17/19 at 18:17 IV Flush (NS 3 ml) 3 ml PER PROTOCOL IV ; Start 01/17/19 at 18:17 Miscellaneous Information 1 ea NOTE XX ; Start 01/17/19 at 18:17 Glucose (Glutose) 15 gm Q15M PRN PO DECREASED GLUCOSE; Start 01/17/19 at 18:17 Glucose (Glutose) 22.5 gm Q15M PRN PO DECREASED GLUCOSE; Start 01/17/19 at 18:17 Dextrose (D50w Syringe) 25 ml Q15M PRN IV DECREASED GLUCOSE Last administered on 02/14/19at 17:23; Admin Dose 25 ML; Start 01/17/19 at 18:17 Dextrose (D50w Syringe) 50 ml Q15M PRN IV DECREASED GLUCOSE; Start 01/17/19 at 18:17 Glucagon (Glucagen) 1 mg Q15M PRN IM DECREASED GLUCOSE Last administered on 02/11/19at 17:55; Admin Dose 1 MG; Start 01/17/19 at 18:17 Glucose (Glutose) 15 gm Q15M PRN BUCCAL DECREASED GLUCOSE; Start 01/17/19 at 18:17 Bisacodyl (Dulcolax Supp) 10 mg DAILY PRN [place] CONSTIPATION; Start 01/17/19 at 18:17 Zinc Acetate/ Diphenhydramine (Benadryl 2% Cr) 1 applic Q6H PRN TOP ITCHING Last administered on 01/26/19at 07:54; Admin Dose 1 APPLIC; Start 01/19/19 at 16:37 IV Flush (NS 10 ml) 10 ml PRN PRN IV IV PROTOCOL; Start 01/20/19 at 14:30 Cyanocobalamin (Vitamin B12 Inj) 1,000 mcg Q7D IM Last administered on 02/17/19at 08:30; Admin Dose 1,000 MCG; Start 02/03/19 at 09:00 Metoprolol Tartrate (Lopressor) 5 mg Q4H PRN IV HR>110 Hold SBP<100; Start 01/26/19 at 14:30 Vancomycin HCl (Vanco Iv Per Pharmacy) VANCOMYCIN PER PHARMACY PER PROTOCOL XX ; Start 01/27/19 at 12:00 Enoxaparin Sodium (Lovenox) 60 mg DAILY SC Last administered on 02/03/19at 08:06; Admin Dose 60 MG; Start 01/28/19 at 09:00; Status Hold Docusate Sodium (Colace Liquid Cup) 100 mg BID NGT ; Start 01/27/19 at 22:00; Status Hold Terazosin HCl (Hytrin) 10 mg HS NGT Last administered on 02/17/19at 21:38; Admin Dose 10 MG; Start 01/28/19 at 21:00 Levothyroxine Sodium (Synthroid) 125 mcg BEFORE BREAKFAST NGT Last administered on 02/18/19at 05:44; Admin Dose 125 MCG; Start 01/28/19 at 07:00 Ferrous Sulfate (Feosol Liquid Cup) 300 mg WITH MEALS GTB Last administered on 02/18/19at 05:44; Admin Dose 300 MG; Start 01/28/19 at 11:30 Multivitamins (Multivitamin) 30 ml DAILY GTB Last administered on 02/17/19at 08:30; Admin Dose 30 ML; Start 01/28/19 at 11:00 Nystatin/ Triamcinolone Acetonide (Mycolog Oint) 1 applic BID TOP Last adminis tered on 02/17/19 21:38; Admin Dose 1 APPLIC; Start 01/28/19 at 22:30 Insulin Aspart (Novolog Insulin Pen) NOVOLOG *MILD* ALGORI... Q4 SC Last administered on 02/18/19 04:04; Admin Dose 3 UNIT; Start 01/29/19 at 05:00 Albuterol/ Ipratropium (Duoneb) 3 ml Q6HWA RESP THERAPY HHN Last administered on 02/17/19 20:12; Admin Dose 3 ML; Start 01/29/19 at 14:00 Epoetin Dae-epbx (RETACRIT(non-esrd)) 40,000 unit Mo@1700 SC Last administered on 02/17/19 17:18; Admin Dose 40,000 UNIT; Start 02/03/19 at 17:00 Aztreonam 1 gm/ Dextrose 50 ml @ 100 mls/hr Q12 IVPB Last administered on 02/17/19 21:51; Admin Dose 100 MLS/HR; Start 02/03/19 at 21:00 Eye Lubricant (Refresh Plus) 1 drop QID BOTH EYES Last administered on 02/17/19 16:04; Admin Dose 1 DROP; Start 02/06/19 at 09:00 Eye Lubricant (Akwa Oint) 1 applic HS LEFT EYE Last administered on 02/17/19 21:51; Admin Dose 1 APPLIC; Start 02/06/19 at 21:00 Multi-Ingredient Ointment (Aquaphor Oint 52.5 Gm) 1 applic BID TOP Last administered on 02/17/19 21:39; Admin Dose 1 APPLIC; Start 02/06/19 at 22:40 Lansoprazole (Prevacid) 30 mg BID@0600,1800 NGT Last administered on 02/18/19 05:44; Admin Dose 30 MG; Start 02/07/19 at 18:00 Tobramycin Sulfate/Sodium Chloride (Nilesh Inhal) 300 mg BID RESP THERAPY NEB Last administered on 02/17/19 07:48; Admin Dose 300 MG; Start 02/08/19 at 09:00 Norepinephrine 250 ml @ 1.875 mls/ hr TITRATE IV ; Start 02/14/19 at 03:00 Morphine Sulfate (morphine) 0.25 mg Q4H PRN IV SEVERE PAIN LEVEL 7-10 Last administered on 02/15/19 11:23; Admin Dose 0.25 MG; Start 02/15/19 at 11:00 Vancomycin HCl 750 mg/Dextrose 250 ml @ 125 mls/hr Q96H IVPB Last administered on 02/16/19 23:09; Admin Dose 125 MLS/HR; Start 02/16/19 at 23:00 Methylprednisolone Sodium Succinate (Solu-Medrol) 40 mg Q8 IV Last administered on 02/18/19 05:44; Admin Dose 40 MG; Start 02/16/19 at 09:00 Insulin Glargine (Lantus) 5 units DAILY@2000 SC Last administered on 02/17/19 19:57; Admin Dose 5 UNITS; Start 02/16/19 at 20:00 Metoprolol Tartrate (Lopressor) 12.5 mg BID NGT Last administered on 02/17/19at 21:37; Admin Dose 12.5 MG; Start 02/17/19 at 21:00 Dextrose 3,600 ml @ 30 mls/hr Q24H IV Last administered on 02/17/19 21:39; Admin Dose 30 MLS/HR; Start 02/17/19 at 20:30; Stop 02/22/19 at 20:29 GISELLA VENTURA February 18, 2019 08:17
[2019-02-18] MEDS: MULTIVITAMINS 30 ML CUP GTB SCH (08:50)
[2019-02-18] MEDS: CARBOXYMETHYLCELLULOSE 0.5% 0.4 ML OPH BOTH EYES SCH ×4 (08:50→20:42)
[2019-02-18] MEDS: AZTREONAM 1 GM in DEXTROSE 5% 50 ML IVPB SCH (08:50)
[2019-02-18] MEDS: BALSAM PERU/CASTOR OIL 60 GM TUBE TOP SCH ×2 (08:51→20:44)
[2019-02-18] MEDS: METOPROLOL 25 MG TAB NGT SCH ×2 (08:51→20:43)
[2019-02-18] MEDS: NYSTATIN/TRIAMCINOLONE 15 GM OINT TOP SCH ×2 (08:51→20:44)
[2019-02-18] MEDS: AQUAPHOR 52.5 GM OINT TOP SCH ×2 (08:51→20:44)
[2019-02-18] MEDS: FOLIC ACID 1 MG TAB PO SCH (09:02)
--- NOTE | 2019-02-18 09:17 | CONS ---
Assessment/Plan Assessment/Plan Assessment/Plan (Daily) Assessment and recommendations; 1. Patient admitted with hypoxemic respiratory failure due to bilateral pneumonia from E. coli currently on appropriate antimicrobial regimen. 2. History of valvular heart disease. 3. COPD. 4. Anemia and thrombocytopenia. 5. Chronic renal insufficiency. 6. Interval improvement in encephalopathy. Continue current supportive care. Transfer to medical floor. Prognosis is poor. Consultation Date/Type/Reason Admit Date/Time Jan 17, 2019 at 15:58 Initial Consult Date 01/18/19 Type of Consult Pulmonary/critical care Patient's condition is tenuous at best. Remains awake and responsive. Currently in no distress. Requesting Provider: IVAN AKHTAR MD Date/Time of Note DATE: 02/18/19 TIME: 09:15 24 HR Interval Summary Free Text/Dictation Patient's condition is tenuous at best. However patient has remained hemodynamically stable and is awake and appropriately responsive. General exam; elderly male, awake, on high flow nasal cannula currently no distress. Exam/Review of Systems Exam Vitals Vital Signs Date Temp Pulse Resp B/P (MAP) Pulse Ox O2 O2 Flow FiO2 Time Delivery Rate 02/18/19 40 08:05 02/18/19 98 08:05 02/18/19 72 20 08:03 02/18/19 101/37 High Flow 06:00 (58) 02/18/19 98.2 04:00 Intake and Output 02/17/19 02/17/19 02/18/19 1515:00 23:00 07:00 IntakeIntake Total 1120 ml 810 ml 780 ml OutputOutput Total 240 ml 210 ml 400 ml BalanceBalance 880 ml 600 ml 380 ml Exam H EENT exam; supple neck, no JVD. No lymphadenopathy. Midline trachea. No thyromegaly. Patient is edentulous. No neck masses. Chest exam; diminished breath sounds bilaterally. S1-S2 audible, no murmurs. Abdomen exam; soft, nondistended. No organomegaly. Bowel sounds are sluggish. Extremity exam; 2+ anasarca. [employer] exam; patient is awake responsive but exhibiting profound generalized weakness. Results Result Diagram: 02/18/19 0356 02/18/19 0356 Results 24hrs Laboratory Tests Test 02/17/19 12:06 02/17/19 15:50 02/17/19 19:52 02/18/19 00:21 Bedside Glucose 238 H 209 200 229 H Test 02/18/19 03:56 02/18/19 03:58 02/18/19 09:04 White Blood Count 10.5 Red Blood Count 2.57 L Hemoglobin 7.3 L Hematocrit 24.9 L Mean Corpuscular 96.9 Volume Mean Corpuscular 28.4 L Hemoglobin Mean Corpuscular 29.3 L Hemoglobin Concent Red Cell 19.7 H Distribution Width Platelet Count 87 L Mean Platelet Volume 12.8 H Immature 0.300 Granulocytes % Neutrophils % 86.1 H Lymphocytes % 10.4 L Monocytes % 3.1 Eosinophils % 0.0 Basophils % 0.1 Nucleated Red Blood 0.8 H Cells % Immature 0.030 Granulocytes # Neutrophils # 9.0 H Lymphocytes # 1.1 Monocytes # 0.3 Eosinophils # 0.0 Basophils # 0.0 Nucleated Red Blood 0.1 H Cells # Sodium Level 145 H Potassium Level 4.1 Chloride Level 109 Carbon Dioxide Level 30 Anion Gap 6 Blood Urea Nitrogen 98 H Creatinine 2.11 H Est Glomerular Filtrat Rate mL/min Glucose Level 195 # Calcium Level 8.0 L Bedside Glucose 228 H 243 H Medications Medication Current Medications Lactulose (Enulose) 20 gm DAILY PRN PO CONSTIPATION; Start 01/17/19 at 18:17 Acetaminophen (Tylenol Tab) 650 mg Q4H PRN PO PAIN Last administered on 02/11/19at 21:29; Admin Dose 650 MG; Start 01/17/19 at 18:17 Miscellaneous Information (Pending [facility] Order For Wound Care) This patient ramirez... PRN PRN XX WOUND CARE; Start 01/17/19 at 18:17 Albuterol/ Ipratropium (Duoneb) 3 ml Q2H RESP THERAPY PRN HHN SHORTNESS OF BREATH Last administered on 02/13/19at 05:52; Admin Dose 3 ML; Start 01/17/19 at 18:17 Bisacodyl (Dulcolax) 10 mg BID PRN PO CONSTIPATION; Start 01/17/19 at 18:17; Status Hold Folic Acid (Folic Acid) 1 mg DAILY PO Last administered on 02/18/19at 09:02; Admin Dose 1 MG; Start 01/17/19 at 18:17 Latanoprost (Xalatan) 1 drop HS BOTH EYES Last administered on 02/17/19at 21:51; Admin Dose 1 DROP; Start 01/17/19 at 18:17 Nitroglycerin (Nitroglycerin (Sl Tab) 0.4 Mg) 0.4 tab Q5M PRN SL CHEST PAIN; Start 01/17/19 at 18:17 IV Flush (NS 3 ml) 3 ml PER PROTOCOL IV ; Start 01/17/19 at 18:17 Miscellaneous Information 1 ea NOTE XX ; Start 01/17/19 at 18:17 Glucose (Glutose) 15 gm Q15M PRN PO DECREASED GLUCOSE; Start 01/17/19 at 18:17 Glucose (Glutose) 22.5 gm Q15M PRN PO DECREASED GLUCOSE; Start 01/17/19 at 18:17 Dextrose (D50w Syringe) 25 ml Q15M PRN IV DECREASED GLUCOSE Last administered on 02/14/19at 17:23; Admin Dose 25 ML; Start 01/17/19 at 18:17 Dextrose (D50w Syringe) 50 ml Q15M PRN IV DECREASED GLUCOSE; Start 01/17/19 at 18:17 Glucagon (Glucagen) 1 mg Q15M PRN IM DECREASED GLUCOSE Last administered on 02/11/19at 17:55; Admin Dose 1 MG; Start 01/17/19 at 18:17 Glucose (Glutose) 15 gm Q15M PRN BUCCAL DECREASED GLUCOSE; Start 01/17/19 at 18:17 Bisacodyl (Dulcolax Supp) 10 mg DAILY PRN [place] CONSTIPATION; Start 01/17/19 at 18:17 Zinc Acetate/ Diphenhydramine (Benadryl 2% Cr) 1 applic Q6H PRN TOP ITCHING Last administered on 01/26/19at 07:54; Admin Dose 1 APPLIC; Start 01/19/19 at 16:37 IV Flush (NS 10 ml) 10 ml PRN PRN IV IV PROTOCOL; Start 01/20/19 at 14:30 Cyanocobalamin (Vitamin B12 Inj) 1,000 mcg Q7D IM Last administered on 02/17/19at 08:30; Admin Dose 1,000 MCG; Start 02/03/19 at 09:00 Metoprolol Tartrate (Lopressor) 5 mg Q4H PRN IV HR>110 Hold SBP<100; Start 01/26 at 14:30 Vancomycin HCl (Vanco Iv Per Pharmacy) VANCOMYCIN PER PHARMACY PER PROTOCOL XX ; Start 01/27/19 at 12:00 Enoxaparin Sodium (Lovenox) 60 mg DAILY SC Last administered on 02/03/19 08:06; Admin Dose 60 MG; Start 01/28/19 at 09:00; Status Hold Docusate Sodium (Colace Liquid Cup) 100 mg BID NGT ; Start 01/27/19 at 22:00; Status Hold Terazosin HCl (Hytrin) 10 mg HS NGT Last administered on 02/17/19 21:38; Admin Dose 10 MG; Start 01/28/19 at 21:00 Levothyroxine Sodium (Synthroid) 125 mcg BEFORE BREAKFAST NGT Last administered on 02/18/19 05:44; Admin Dose 125 MCG; Start 01/28/19 at 07:00 Ferrous Sulfate (Feosol Liquid Cup) 300 mg WITH MEALS GTB Last administered on 02/18/19 05:44; Admin Dose 300 MG; Start 01/28/19 at 11:30 Multivitamins (Multivitamin) 30 ml DAILY GTB Last administered on 02/18/19 08:50; Admin Dose 30 ML; Start 01/28/19 at 11:00 Nystatin/ Triamcinolone Acetonide (Mycolog Oint) 1 applic BID TOP Last administered on 02/18/19 08:51; Admin Dose 1 APPLIC; Start 01/28/19 at 22:30 Insulin Aspart (Novolog Insulin Pen) NOVOLOG *MILD* ALGORI... Q4 SC Last administered on 02/18/19 09:06; Admin Dose 3 UNIT; Start 01/29/19 at 05:00 Albuterol/ Ipratropium (Duoneb) 3 ml Q6HWA RESP THERAPY HHN Last administered on 02/18/19 08:01; Admin Dose 3 ML; Start 01/29/19 at 14:00 Epoetin Dae-epbx (RETACRIT(non-esrd)) 40,000 unit Mo@1700 SC Last administered on 02/17/19 17:18; Admin Dose 40,000 UNIT; Start 02/03/19 at 17:00 Aztreonam 1 gm/ Dextrose 50 ml @ 100 mls/hr Q12 IVPB Last administered on 02/18/19 08:50; Admin Dose 100 MLS/HR; Start 02/03/19 at 21:00 Eye Lubricant (Refresh Plus) 1 drop QID BOTH EYES Last administered on 02/18/19 08:50; Admin Dose 1 DROP; Start 02/06/19 at 09:00 Eye Lubricant (Akwa Oint) 1 applic HS LEFT EYE Last administered on 02/17/19 21:51; Admin Dose 1 APPLIC; Start 02/06/19 at 21:00 Multi-Ingredient Ointment (Aquaphor Oint 52.5 Gm) 1 applic BID TOP Last administered on 02/18/19 08:51; Admin Dose 1 APPLIC; Start 02/06/19 at 22:40 Lansoprazole (Prevacid) 30 mg BID@0600,1800 NGT Last administered on 02/18/19 05:44; Admin Dose 30 MG; Start 02/07/19 at 18:00 Tobramycin Sulfate/Sodium Chloride (Nilesh Inhal) 300 mg BID RESP THERAPY NEB Last administered on 02/17/19 07:48; Admin Dose 300 MG; Start 02/08/19 at 09:00 Norepinephrine 250 ml @ 1.875 mls/ hr TITRATE IV ; Start 02/14/19 at 03:00 Morphine Sulfate (morphine) 0.25 mg Q4H PRN IV SEVERE PAIN LEVEL 7-10 Last administered on 02/15/19 11:23; Admin Dose 0.25 MG; Start 02/15/19 at 11:00 Vancomycin HCl 750 mg/Dextrose 250 ml @ 125 mls/hr Q96H IVPB Last administered on 02/16/19 23:09; Admin Dose 125 MLS/HR; Start 02/16/19 at 23:00 Methylprednisolone Sodium Succinate (Solu-Medrol) 40 mg Q8 IV Last administered on 02/18/19 05:44; Admin Dose 40 MG; Start 02/16/19 at 09:00 Insulin Glargine (Lantus) 5 units DAILY@2000 SC Last administered on 02/17/19 19:57; Admin Dose 5 UNITS; Start 02/16/19 at 20:00 Metoprolol Tartrate (Lopressor) 12.5 mg BID NGT Last administered on 02/17/19 21:37; Admin Dose 12.5 MG; Start 02/17/19 at 21:00 Dextrose 3,600 ml @ 30 mls/hr Q24H IV Last administered on 02/17/19at 21:39; Admin Dose 30 MLS/HR; Start 02/17/19 at 20:30; Stop 02/22/19 at 20:29 LOVE HAWK February 18, 2019 09:17
--- NOTE | 2019-02-18 09:26 | CONS ---
Assessment/Plan Assessment/Plan Assessment/Plan (Daily) Hypoxemic respiratory failure End-stage COPD Dementia DO NOT RESUSCITATE DO NOT INTUBATE I have spoken to family members on multiple occasions the last approximately 3 days ago they were still in agreement for current CODE STATUS. Consultation Date/Type/Reason Admit Date/Time Jan 17, 2019 at 15:58 Initial Consult Date 01/18/19 Requesting Provider: IVAN AKHTAR MD Date/Time of Note DATE: 02/18/19 TIME: 09:25 Exam/Review of Systems Exam Vitals Vital Signs Date Temp Pulse Resp B/P (MAP) Pulse Ox O2 O2 Flow FiO2 Time Delivery Rate 02/18/19 40 08:05 02/18/19 98 08:05 02/18/19 72 20 08:03 02/18/19 101/37 High Flow 06:00 (58) 02/18/19 98.2 04:00 Intake and Output 02/17/19 02/17/19 02/18/19 1515:00 23:00 07:00 IntakeIntake Total 1120 ml 810 ml 780 ml OutputOutput Total 240 ml 210 ml 400 ml BalanceBalance 880 ml 600 ml 380 ml Constitutional: frail Psych: confusion Respiratory: congested cough, crackles/rales Neurological: RE EXAMINER II-XII intact, confused, lethargic Results Result Diagram: 02/18/19 0356 02/18/19 0356 Results 24hrs Laboratory Tests Test 02/17/19 12:06 02/17/19 15:50 02/17/19 19:52 02/18/19 00:21 Bedside Glucose 238 H 209 200 229 H Test 02/18/19 03:56 02/18/19 03:58 02/18/19 09:04 White Blood Count 10.5 Red Blood Count 2.57 L Hemoglobin 7.3 L Hematocrit 24.9 L Mean Corpuscular 96.9 Volume Mean Corpuscular 28.4 L Hemoglobin Mean Corpuscular 29.3 L Hemoglobin Concent Red Cell 19.7 H Distribution Width Platelet Count 87 L Mean Platelet Volume 12.8 H Immature 0.300 Granulocytes % Neutrophils % 86.1 H Lymphocytes % 10.4 L Monocytes % 3.1 Eosinophils % 0.0 Basophils % 0.1 Nucleated Red Blood 0.8 H Cells % Immature 0.030 Granulocytes # Neutrophils # 9.0 H Lymphocytes # 1.1 Monocytes # 0.3 Eosinophils # 0.0 Basophils # 0.0 Nucleated Red Blood 0.1 H Cells # Sodium Level 145 H Potassium Level 4.1 Chloride Level 109 Carbon Dioxide Level 30 Anion Gap 6 Blood Urea Nitrogen 98 H Creatinine 2.11 H Est Glomerular Filtrat Rate mL/min Glucose Level 195 # Calcium Level 8.0 L Bedside Glucose 228 H 243 H Medications Medication Current Medications Lactulose (Enulose) 20 gm DAILY PRN PO CONSTIPATION; Start 01/17/19 at 18:17 Acetaminophen (Tylenol Tab) 650 mg Q4H PRN PO PAIN Last administered on at 21:29; Admin Dose 650 MG; Start 01/17/19 at 18:17 Miscellaneous Information (Pending [facility] Order For Wound Care) This patient ramirez... PRN PRN XX WOUND CARE; Start 01/17/19 at 18:17 Albuterol/ Ipratropium (Duoneb) 3 ml Q2H RESP THERAPY PRN HHN SHORTNESS OF BREATH Last administered on 02/13/19at 05:52; Admin Dose 3 ML; Start 01/17/19 at 18:17 Bisacodyl (Dulcolax) 10 mg BID PRN PO CONSTIPATION; Start 01/17/19 at 18:17; Status Hold Folic Acid (Folic Acid) 1 mg DAILY PO Last administered on 02/18/19at 09:02; Admin Dose 1 MG; Start 01/17/19 at 18:17 Latanoprost (Xalatan) 1 drop HS BOTH EYES Last administered on 02/17/19at 21:51; Admin Dose 1 DROP; Start 01/17/19 at 18:17 Nitroglycerin (Nitroglycerin (Sl Tab) 0.4 Mg) 0.4 tab Q5M PRN SL CHEST PAIN; Start 01/17/19 at 18:17 IV Flush (NS 3 ml) 3 ml PER PROTOCOL IV ; Start 01/17/19 at 18:17 Miscellaneous Information 1 ea NOTE XX ; Start 01/17/19 at 18:17 Glucose (Glutose) 15 gm Q15M PRN PO DECREASED GLUCOSE; Start 01/17/19 at 18:17 Glucose (Glutose) 22.5 gm Q15M PRN PO DECREASED GLUCOSE; Start 01/17/19 at 18:17 Dextrose (D50w Syringe) 25 ml Q15M PRN IV DECREASED GLUCOSE Last administered on 02/14/19at 17:23; Admin Dose 25 ML; Start 01/17/19 at 18:17 Dextrose (D50w Syringe) 50 ml Q15M PRN IV DECREASED GLUCOSE; Start 01/17/19 at 18:17 Glucagon (Glucagen) 1 mg Q15M PRN IM DECREASED GLUCOSE Last administered on 02/11/19at 17:55; Admin Dose 1 MG; Start 01/17/19 at 18:17 Glucose (Glutose) 15 gm Q15M PRN BUCCAL DECREASED GLUCOSE; Start 01/17/19 at 18:17 Bisacodyl (Dulcolax Supp) 10 mg DAILY PRN [place] CONSTIPATION; Start 01/17/19 at 18:17 Zinc Acetate/ Diphenhydramine (Benadryl 2% Cr) 1 applic Q6H PRN TOP ITCHING Last administered on 01/26/19at 07:54; Admin Dose 1 APPLIC; Start 01/19/19 at 16:37 IV Flush (NS 10 ml) 10 ml PRN PRN IV IV PROTOCOL; Start 01/20/19 at 14:30 Cyanocobalamin (Vitamin B12 Inj) 1,000 mcg Q7D IM Last administered on 02/17/19at 08:30; Admin Dose 1,000 MCG; Start 02/03/19 at 09:00 Metoprolol Tartrate (Lopressor) 5 mg Q4H PRN IV HR>110 Hold SBP<100; Start 01/26/19 at 14:30 Vancomycin HCl (Vanco Iv Per Pharmacy) VANCOMYCIN PER PHARMACY PER PROTOCOL XX ; Start 01/27/19 at 12:00 Enoxaparin Sodium (Lovenox) 60 mg DAILY SC Last administered on 02/03/19at 08:06; Admin Dose 60 MG; Start 01/28/19 at 09:00; Status Hold Docusate Sodium (Colace Liquid Cup) 100 mg BID NGT ; Start 01/27/19 at 22:00; Status Hold Terazosin HCl (Hytrin) 10 mg HS NGT Last administered on 02/17/19at 21:38; Admin Dose 10 MG; Start 01/28/19 at 21:00 Levothyroxine Sodium (Synthroid) 125 mcg BEFORE BREAKFAST NGT Last administered on 02/18/19at 05:44; Admin Dose 125 MCG; Start 01/28/19 at 07:00 Ferrous Sulfate (Feosol Liquid Cup) 300 mg WITH MEALS GTB Last administered on 02/18/19 05:44; Admin Dose 300 MG; Start 01/28/19 at 11:30 Multivitamins (Multivitamin) 30 ml DAILY GTB Last administered on 02/18/19 08:50; Admin Dose 30 ML; Start 01/28/19 at 11:00 Nystatin/ Triamcinolone Acetonide (Mycolog Oint) 1 applic BID TOP Last adm inistered on 02/18/19 08:51; Admin Dose 1 APPLIC; Start 01/28/19 at 22:30 Insulin Aspart (Novolog Insulin Pen) NOVOLOG *MILD* ALGORI... Q4 SC Last administered on 02/18/19 09:06; Admin Dose 3 UNIT; Start 01/29/19 at 05:00 Albuterol/ Ipratropium (Duoneb) 3 ml Q6HWA RESP THERAPY HHN Last administered on 02/18/19 08:01; Admin Dose 3 ML; Start 01/29/19 at 14:00 Epoetin Dae-epbx (RETACRIT(non-esrd)) 40,000 unit Mo@1700 SC Last administered on 02/17/19 17:18; Admin Dose 40,000 UNIT; Start 02/03/19 at 17:00 Aztreonam 1 gm/ Dextrose 50 ml @ 100 mls/hr Q12 IVPB Last administered on 02/18/19 08:50; Admin Dose 100 MLS/HR; Start 02/03/19 at 21:00 Eye Lubricant (Refresh Plus) 1 drop QID BOTH EYES Last administered on 02/18/19 08:50; Admin Dose 1 DROP; Start 02/06/19 at 09:00 Eye Lubricant (Akwa Oint) 1 applic HS LEFT EYE Last administered on 02/17/19 21:51; Admin Dose 1 APPLIC; Start 02/06/19 at 21:00 Multi-Ingredient Ointment (Aquaphor Oint 52.5 Gm) 1 applic BID TOP Last administered on 02/18/19 08:51; Admin Dose 1 APPLIC; Start 02/06/19 at 22:40 Lansoprazole (Prevacid) 30 mg BID@0600,1800 NGT Last administered on 02/18/19 05:44; Admin Dose 30 MG; Start 02/07/19 at 18:00 Tobramycin Sulfate/Sodium Chloride (Nilesh Inhal) 300 mg BID RESP THERAPY NEB Last administered on 02/17/19 07:48; Admin Dose 300 MG; Start 02/08/19 at 09:00 Norepinephrine 250 ml @ 1.875 mls/ hr TITRATE IV ; Start 02/14/19 at 03:00 Morphine Sulfate (morphine) 0.25 mg Q4H PRN IV SEVERE PAIN LEVEL 7-10 Last administered on 02/15/19 11:23; Admin Dose 0.25 MG; Start 02/15/19 at 11:00 Vancomycin HCl 750 mg/Dextrose 250 ml @ 125 mls/hr Q96H IVPB Last administered on 02/16/19 23:09; Admin Dose 125 MLS/HR; Start 02/16/19 at 23:00 Methylprednisolone Sodium Succinate (Solu-Medrol) 40 mg Q8 IV Last administered on 02/18/19 05:44; Admin Dose 40 MG; Start 02/16/19 at 09:00 Insulin Glargine (Lantus) 5 units DAILY@2000 SC Last administered on 02/17/19 19:57; Admin Dose 5 UNITS; Start 02/16/19 at 20:00 Metoprolol Tartrate (Lopressor) 12.5 mg BID NGT Last administered on 02/17/19 21:37; Admin Dose 12.5 MG; Start 02/17/19 at 21:00 Dextrose 3,600 ml @ 30 mls/hr Q24H IV Last administered on 02/17/19 21:39; Admin Dose 30 MLS/HR; Start 02/17/19 at 20:30; Stop 02/22/19 at 20:29 MARGARITO WILSON February 18, 2019 09:26
--- NOTE | 2019-02-18 09:33 | PN ---
Date/Time of Note Date/Time of Note DATE: 02/18/19 TIME: 09:33 Assessment/Plan VTE Prophylaxis Risk score (from [facility])>0 risk: 13 SCD applied (from [facility]): Yes Pharmacological prophylaxis: NA/contraindicated Pharm contraindication: low risk/ambulating Lines/Catheters IV C[facility] Type [facility]from [facility] Central Line Central line still needed: Yes Urinary Cath still in place: Yes Reason Cath still needed: urinary retention Assessment/Plan Hospital Course Hospital Course # AMS likely due to stroke vs seizure, 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 Septic shock now on pressors likely secondary to pneumonia on levophed resolved # Hypothermia ? sepsis #. 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 Chronic renal failure likely secondary to sepsis, improved, normal creatinine #. Hypertension.currently hypotensive resolved # Impending respiratory failure on high flow likely secondary to fluid o verload/pneumonia # Anasarca # Hyperlipidemia. # Hypothyroidism. # Bilateral groin cellulitis more likely associated with mateus, patches in groin and axilla bilaterally. skin peeling # History of rheumatoid arthritis with joint deformities. # Diabetes type 2. # Hx of CABGx2, carotid stent #. Peripheral vascular disease. #. Chronic a.fib, now on lovenox #. right arm edema # Neoplasm per CT abdomen. 4.3 cm cystic lesion along the pancreas body, enlarged since 10/10/2012 (previously 2.4 cm). 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 # Possible allergic skin reaction ? drug present since admission> improved s/p biopsy/ Amrik eBtancourt > limit results solar keratosis # hypoThermia #[facility] to [facility] improving # metabolic alkalosis Plan -On high flow. -Change the fluids to D5 water at 30 -[place] flushes -Increase Lantus -Monitor kidney function -dec steroids - nebs, BIPAP - GI consult> hold lovenox due to possible bleeding, iv ppi -c hawk keppra - cw lovenox 60 for afib> held due to anemia ? ASA - GI and DVT prophylaxsis -oncology consul dr Lorenzo aware:he said Ca 19-9 is negative indicating unlikely malignant. This may be a pseudocyst or a precancerous pancreatic lesion. It has been growing in size but patient is asymptomatic. EUS with biopsy is recommended and can either be done inpatient or outpatient setting. The patient at this time is unlikely a candidate for a Whipple surgery however. -skin care - s/p skin biopsy pending results solar elastosis according to them is probably due to antibiotics -Off of all antibiotics Result Diagram: 02/18/19 0356 02/18/19 0356 Results 24hrs Laboratory Tests Test 02/17/19 12:06 02/17/19 15:50 02/17/19 19:52 02/18/19 00:21 Bedside Glucose 238 H 209 200 229 H Test 02/18/19 03:56 02/18/19 03:58 02/18/19 09:04 White Blood Count 10.5 Red Blood Count 2.57 L Hemoglobin 7.3 L Hematocrit 24.9 L Mean Corpuscular 96.9 Volume Mean Corpuscular 28.4 L Hemoglobin Mean Corpuscular 29.3 L Hemoglobin Concent Red Cell 19.7 H Distribution Width Platelet Count 87 L Mean Platelet Volume 12.8 H Immature 0.300 Granulocytes % Neutrophils % 86.1 H Lymphocytes % 10.4 L Monocytes % 3.1 Eosinophils % 0.0 Basophils % 0.1 Nucleated Red Blood 0.8 H Cells % Immature 0.030 Granulocytes # Neutrophils # 9.0 H Lymphocytes # 1.1 Monocytes # 0.3 Eosinophils # 0.0 Basophils # 0.0 Nucleated Red Blood 0.1 H Cells # Sodium Level 145 H Potassium Level 4.1 Chloride Level 109 Carbon Dioxide Level 30 Anion Gap 6 Blood Urea Nitrogen 98 H Creatinine 2.11 H Est Glomerular Filtrat Rate mL/min Glucose Level 195 # Calcium Level 8.0 L Bedside Glucose 228 H 243 H Subjective 24 Hr Interval Summary Free Text/Dictation No acute events. Still on high flow Tries to follow some commands Exam/Review of Systems Exam Vitals Vital Signs Date Temp Pulse Resp B/P (MAP) Pulse Ox O2 O2 Flow FiO2 Time Delivery Rate 02/18/19 40 08:05 02/18/19 98 08:05 02/18/19 72 20 08:03 02/18/19 101/37 High Flow 06:00 (58) 02/18/19 98.2 04:00 Intake and Output 02/17/19 02/17/19 02/18/19 1515:00 23:00 07:00 IntakeIntake Total 1120 ml 810 ml 780 ml OutputOutput Total 240 ml 210 ml 400 ml BalanceBalance 880 ml 600 ml 380 ml Exam NG tube Constitutional: alert, frail, try to squeeze his fingers Head: normocephalic Eyes: nl conjunctiva Neck: supple Respiratory: diminished breath sounds Cardiovascular: regular rate and rhythm Gastrointestinal: soft Genitourinary - Male: nl penis Skin: other (skin is peeling), skin rash is much improved. Results Results 24hrs Laboratory Tests Test 02/17/19 12:06 02/17/19 15:50 02/17/19 19:52 02/18/19 00:21 Bedside Glucose 238 H 209 200 229 H Test 02/18/19 03:56 02/18/19 03:58 02/18/19 09:04 White Blood Count 10.5 Red Blood Count 2.57 L Hemoglobin 7.3 L Hematocrit 24.9 L Mean Corpuscular 96.9 Volume Mean Corpuscular 28.4 L Hemoglobin Mean Corpuscular 29.3 L Hemoglobin Concent Red Cell 19.7 H Distribution Width Platelet Count 87 L Mean Platelet Volume 12.8 H Immature 0.300 Granulocytes % Neutrophils % 86.1 H Lymphocytes % 10.4 L Monocytes % 3.1 Eosinophils % 0.0 Basophils % 0.1 Nucleated Red Blood 0.8 H Cells % Immature 0.030 Granulocytes # Neutrophils # 9.0 H Lymphocytes # 1.1 Monocytes # 0.3 Eosinophils # 0.0 Basophils # 0.0 Nucleated Red Blood 0.1 H Cells # Sodium Level 145 H Potassium Level 4.1 Chloride Level 109 Carbon Dioxide Level 30 Anion Gap 6 Blood Urea Nitrogen 98 H Creatinine 2.11 H Est Glomerular Filtrat Rate mL/min Glucose Level 195 # Calcium Level 8.0 L Bedside Glucose 228 H 243 H Medications Medication Current Medications Lactulose (Enulose) 20 gm DAILY PRN PO CONSTIPATION; Start 01/17/19 at 18:17 Acetaminophen (Tylenol Tab) 650 mg Q4H PRN PO PAIN Last administered on 02/11/19 at 21:29; Admin Dose 650 MG; Start 01/17/19 at 18:17 Miscellaneous Information ([facility]) This patient ramirez... PRN PRN XX WOUND CARE; Start 01/17/19 at 18:17 Albuterol/ Ipratropium (Duoneb) 3 ml Q2H RESP THERAPY PRN HHN SHORTNESS OF BREATH Last administered on 02/13/19at 05:52; Admin Dose 3 ML; Start 01/17/19 at 18:17 Bisacodyl (Dulcolax) 10 mg BID PRN PO CONSTIPATION; Start 01/17/19 at 18:17; Status Hold Folic Acid (Folic Acid) 1 mg DAILY PO Last administered on 02/18/19at 09:02; Admin Dose 1 MG; Start 01/17/19 at 18:17 Latanoprost (Xalatan) 1 drop HS BOTH EYES Last administered on 02/17/19at 21:51; Admin Dose 1 DROP; Start 01/17/19 at 18:17 Nitroglycerin (Nitroglycerin (Sl Tab) 0.4 Mg) 0.4 tab Q5M PRN SL CHEST PAIN; Start 01/17/19 at 18:17 IV Flush (NS 3 ml) 3 ml PER PROTOCOL IV ; Start 01/17/19 at 18:17 Miscellaneous Information 1 ea NOTE XX ; Start 01/17/19 at 18:17 Glucose (Glutose) 15 gm Q15M PRN PO DECREASED GLUCOSE; Start 01/17/19 at 18:17 Glucose (Glutose) 22.5 gm Q15M PRN PO DECREASED GLUCOSE; Start 01/17/19 at 18:17 Dextrose (D50w Syringe) 25 ml Q15M PRN IV DECREASED GLUCOSE Last administered on 02/14/19at 17:23; Admin Dose 25 ML; Start 01/17/19 at 18:17 Dextrose (D50w Syringe) 50 ml Q15M PRN IV DECREASED GLUCOSE; Start 01/17/19 at 18:17 Glucagon (Glucagen) 1 mg Q15M PRN IM DECREASED GLUCOSE Last administered on 02/11/19at 17:55; Admin Dose 1 MG; Start 01/17/19 at 18:17 Glucose (Glutose) 15 gm Q15M PRN BUCCAL DECREASED GLUCOSE; Start 01/17/19 at 18:17 Bisacodyl (Dulcolax Supp) 10 mg DAILY PRN [place] CONSTIPATION; Start 01/17/19 at 18 :17 Zinc Acetate/ Diphenhydramine (Benadryl 2% Cr) 1 applic Q6H PRN TOP ITCHING Last administered on 01/26/19at 07:54; Admin Dose 1 APPLIC; Start 01/19/19 at 16:37 IV Flush (NS 10 ml) 10 ml PRN PRN IV IV PROTOCOL; Start 01/20/19 at 14:30 Cyanocobalamin (Vitamin B12 Inj) 1,000 mcg Q7D IM Last administered on 02/17/19at 08:30; Admin Dose 1,000 MCG; Start 02/03/19 at 09:00 Metoprolol Tartrate (Lopressor) 5 mg Q4H PRN IV HR>110 Hold SBP<100; Start 01/26/19 at 14:30 Vancomycin HCl (Vanco Iv Per Pharmacy) VANCOMYCIN PER PHARMACY PER PROTOCOL XX ; Start 01/27/19 at 12:00 Enoxaparin Sodium (Lovenox) 60 mg DAILY SC Last administered on 02/03/19at 08:06; Admin Dose 60 MG; Start 01/28/19 at 09:00; Status Hold Docusate Sodium (Colace Liquid Cup) 100 mg BID NGT ; Start 01/27/19 at 22:00; Status Hold Terazosin HCl (Hytrin) 10 mg HS NGT Last administered on 02/17/19at 21:38; Admin Dose 10 MG; Start 01/28/19 at 21:00 Levothyroxine Sodium (Synthroid) 125 mcg BEFORE BREAKFAST NGT Last administered on 02/18/19at 05:44; Admin Dose 125 MCG; Start 01/28/19 at 07:00 Ferrous Sulfate (Feosol Liquid Cup) 300 mg WITH MEALS GTB Last administered on 02/18/19at 05:44; Admin Dose 300 MG; Start 01/28/19 at 11:30 Multivitamins (Multivitamin) 30 ml DAILY GTB Last administered on 02/18/19 08:50; Admin Dose 30 ML; Start 01/28/19 at 11:00 Nystatin/ Triamcinolone Acetonide (Mycolog Oint) 1 applic BID TOP Last admin istered on 02/18/19 08:51; Admin Dose 1 APPLIC; Start 01/28/19 at 22:30 Insulin Aspart (Novolog Insulin Pen) NOVOLOG *MILD* ALGORI... Q4 SC Last administered on 02/18/19 09:06; Admin Dose 3 UNIT; Start 01/29/19 at 05:00 Albuterol/ Ipratropium (Duoneb) 3 ml Q6HWA RESP THERAPY HHN Last administered on 02/18/19 08:01; Admin Dose 3 ML; Start 01/29/19 at 14:00 Epoetin Dae-epbx (RETACRIT(non-esrd)) 40,000 unit Mo@1700 SC Last administered on 02/17/19 17:18; Admin Dose 40,000 UNIT; Start 02/03/19 at 17:00 Aztreonam 1 gm/ Dextrose 50 ml @ 100 mls/hr Q12 IVPB Last administered on 02/18/19 08:50; Admin Dose 100 MLS/HR; Start 02/03/19 at 21:00 Eye Lubricant (Refresh Plus) 1 drop QID BOTH EYES Last administered on 02/18/19 08:50; Admin Dose 1 DROP; Start 02/06/19 at 09:00 Eye Lubricant (Akwa Oint) 1 applic HS LEFT EYE Last administered on 02/17/19 21:51; Admin Dose 1 APPLIC; Start 02/06/19 at 21:00 Multi-Ingredient Ointment (Aquaphor Oint 52.5 Gm) 1 applic BID TOP Last administered on 02/18/19 08:51; Admin Dose 1 APPLIC; Start 02/06/19 at 22:40 Lansoprazole (Prevacid) 30 mg BID@0600,1800 NGT Last administered on 02/18/19 05:44; Admin Dose 30 MG; Start 02/07/19 at 18:00 Tobramycin Sulfate/Sodium Chloride (Nilesh Inhal) 300 mg BID RESP THERAPY NEB Last administered on 02/17/19 07:48; Admin Dose 300 MG; Start 02/08/19 at 09:00 Norepinephrine 250 ml @ 1.875 mls/ hr TITRATE IV ; Start 02/14/19 at 03:00 Morphine Sulfate (morphine) 0.25 mg Q4H PRN IV SEVERE PAIN LEVEL 7-10 Last administered on 02/15/19 11:23; Admin Dose 0.25 MG; Start 02/15/19 at 11:00 Vancomycin HCl 750 mg/Dextrose 250 ml @ 125 mls/hr Q96H IVPB Last administered on 02/16/19 23:09; Admin Dose 125 MLS/HR; Start 02/16/19 at 23:00 Methylprednisolone Sodium Succinate (Solu-Medrol) 40 mg Q8 IV Last administered on 02/18/19 05:44; Admin Dose 40 MG; Start 02/16/19 at 09:00 Insulin Glargine (Lantus) 5 units DAILY@2000 SC Last administered on 02/17/19at 19:57; Admin Dose 5 UNITS; Start 02/16/19 at 20:00 Metoprolol Tartrate (Lopressor) 12.5 mg BID NGT Last administered on 02/17/19at 21:37; Admin Dose 12.5 MG; Start 02/17/19 at 21:00 Dextrose 3,600 ml @ 30 mls/hr Q24H IV Last administered on 02/17/19at 21:39; Admin Dose 30 MLS/HR; Start 02/17/19 at 20:30; Stop 02/22/19 at 20:29 IVAN AKHTAR MD February 18, 2019 09:33
[2019-02-18] MEDS ORDERED: DEXTROSE 5% 1,000 ML IV SCH (11:00)
--- NOTE | 2019-02-18 11:55 | CONS ---
Assessment/Plan Assessment/Plan Hospital Course (Demo Recall) No acute events patient is lethargic arousable, confused in no distress no fevers overnight WBC 10 H&H 7.3 and 25.1 platelets 86 neutrophils 87.4 BUN 98 creatinine 2.11 Antimicrobials: Vancomycin, aztreonam, tobramycin inhalation Indwelling: Left subclavian triple-lumen catheter, Wade catheter, NG tube Allergy: Penicillin, sulfa Physical examination: Obese well-developed chronically ill-appearing - [place] man who is lethargic, in no distress. Head atraumatic normocephalic sclera nonicteric. Neck is supple chest rise symmetrical breath sounds diminished bases. Heart: S1-S2. Abdomen obese soft bowel sounds present extremities without cyanosis, bilateral edema Assessment: 1. Sepsis s/p shock 2. Acute hypoxemic respiratory failure, likely ongoing aspiration 2. Acute encephalopathy 3. Seizures 4. Healthcare acquired pneumonia 5. Coronary artery disease/history of CABG 6. Advanced rheumatoid arthritis 5. Chronic atrial fibrillation 6. Diabetes 7. BPH 9. Acute on chronic anemia===> s/p EGD/colonoscopy 01/09/19 10. Status post right epididymitis 11. Pancreatic lesion per CT, unlikely neoplasm per oncology notes 12. 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 Skin lesions, s/p punch bx, pathology consistent with allergic reaction Plan: Remains unchanged, we will discontinue antibiotics as he already completed 2 weeks, reculture him if he spikes fever again, overall prognosis poor patient is DNR/DNI status now Consultation Date/Type/Reason Admit Date/Time Jan 17, 2019 at 15:58 Initial Consult Date 01/18/19 Type of Consult id Requesting Provider: IVAN AKHTAR MD Date/Time of Note DATE: 02/18/19 TIME: 11:54 Exam/Review of Systems Exam Vitals Vital Signs Date Temp Pulse Resp B/P (MAP) Pulse Ox O2 O2 Flow FiO2 Time Delivery Rate 02/18/19 97 40 11:26 02/18/19 76 23 104/38 High Flow 11:00 (60) 02/18/19 97.5 08:00 Intake and Output 02/17/19 02/17/19 02/18/19 1515:00 23:00 07:00 IntakeIntake Total 1120 ml 810 ml 850 ml OutputOutput Total 240 ml 210 ml 400 ml BalanceBalance 880 ml 600 ml 450 ml Results Result Diagram: 02/18/19 0940 02/18/19 0356 Results 24hrs Laboratory Tests Test 02/17/19 12:06 02/17/19 15:50 02/17/19 19:52 02/18/19 00:21 Bedside Glucose 238 H 209 200 229 H Test 02/18/19 03:56 02/18/19 03:58 02/18/19 09:04 02/18/19 09:40 White Blood Count 10.5 10.0 Red Blood Count 2.57 L 2.59 L Hemoglobin 7.3 L 7.3 L Hematocrit 24.9 L 25.1 L Mean Corpuscular 96.9 96.9 Volume Mean Corpuscular 28.4 L 28.2 L Hemoglobin Mean Corpuscular 29.3 L 29.1 L Hemoglobin Concent Red Cell 19.7 H 19.7 H Distribution Width Platelet Count 87 L 86 L Mean Platelet Volume 12.8 H 12.6 H Immature 0.300 0.300 Granulocytes % Neutrophils % 86.1 H 87.4 H Lymphocytes % 10.4 L 9.1 L Monocytes % 3.1 3.2 Eosinophils % 0.0 0.0 Basophils % 0.1 0.0 Nucleated Red Blood 0.8 H 1.0 H Cells % Immature 0.030 0.030 Granulocytes # Neutrophils # 9.0 H 8.8 H Lymphocytes # 1.1 0.9 Monocytes # 0.3 0.3 Eosinophils # 0.0 0.0 Basophils # 0.0 0.0 Nucleated Red Blood 0.1 H 0.1 H Cells # Sodium Level 145 H Potassium Level 4.1 Chloride Level 109 Carbon Dioxide Level 30 Anion Gap 6 Blood Urea Nitrogen 98 H Creatinine 2.11 H Est Glomerular Filtrat Rate mL/min Glucose Level 195 # Calcium Level 8.0 L Bedside Glucose 228 H 243 H Absolute 0.133 H Reticulocyte Count Percent Reticulocyte 5.1 H Count Iron Level 34 L Total Iron Binding 119 L Capacity Percent Iron 29 Saturation Medications Medication Current Medications Lactulose (Enulose) 20 gm DAILY PRN PO CONSTIPATION; Start 01/17/19 at 18:17 Acetaminophen (Tylenol Tab) 650 mg Q4H PRN PO PAIN Last administered on 02/11/19at 21:29; Admin Dose 650 MG; Start 01/17/19 at 18:17 Miscellaneous Information (Pending [facility] Order For Wound Care) This patient ramirez... PRN PRN XX WOUND CARE; Start 01/17/19 at 18:17 Albuterol/ Ipratropium (Duoneb) 3 ml Q2H RESP THERAPY PRN HHN SHORTNESS OF BREATH Last administered on 02/13/19at 05:52; Admin Dose 3 ML; Start 01/17/19 at 18:17 Bisacodyl (Dulcolax) 10 mg BID PRN PO CONSTIPATION; Start 01/17/19 at 18:17; Status Hold Folic Acid (Folic Acid) 1 mg DAILY PO Last administered on 02/18/19at 09:02; Admin Dose 1 MG; Start 01/17/19 at 18:17 Latanoprost (Xalatan) 1 drop HS BOTH EYES Last administered on 02/17/19at 21:51; Admin Dose 1 DROP; Start 01/17/19 at 18:17 Nitroglycerin (Nitroglycerin (Sl Tab) 0.4 Mg) 0.4 tab Q5M PRN SL CHEST PAIN; Start 01/17/19 at 18:17 IV Flush (NS 3 ml) 3 ml PER PROTOCOL IV ; Start 01/17/19 at 18:17 Miscellaneous Information 1 ea NOTE XX ; Start 01/17/19 at 18:17 Glucose (Glutose) 15 gm Q15M PRN PO DECREASED GLUCOSE; Start 01/17/19 at 18:17 Glucose (Glutose) 22.5 gm Q15M PRN PO DECREASED GLUCOSE; Start 01/17/19 at 18:17 Dextrose (D50w Syringe) 25 ml Q15M PRN IV DECREASED GLUCOSE Last administered on 02/14/19at 17:23; Admin Dose 25 ML; Start 01/17/19 at 18:17 Dextrose (D50w Syringe) 50 ml Q15M PRN IV DECREASED GLUCOSE; Start 01/17/19 at 18:17 Glucagon (Glucagen) 1 mg Q15M PRN IM DECREASED GLUCOSE Last administered on 02/11/19at 17:55; Admin Dose 1 MG; Start 01/17/19 at 18:17 Glucose (Glutose) 15 gm Q15M PRN BUCCAL DECREASED GLUCOSE; Start 01/17/19 at 18:17 Bisacodyl (Dulcolax Supp) 10 mg DAILY PRN [place] CONSTIPATION; Start 01/17/19 at 18:17 Zinc Acetate/ Diphenhydramine (Benadryl 2% Cr) 1 applic Q6H PRN TOP ITCHING Last administered on 01/26/19 07:54; Admin Dose 1 APPLIC; Start 01/19/19 at 16:37 IV Flush (NS 10 ml) 10 ml PRN PRN IV IV PROTOCOL; Start 01/20/19 at 14:30 Cyanocobalamin (Vitamin B12 Inj) 1,000 mcg Q7D IM Last administered on 02/17/19 08:30; Admin Dose 1,000 MCG; Start 02/03/19 at 09:00 Metoprolol Tartrate (Lopressor) 5 mg Q4H PRN IV HR>110 Hold SBP<100; Start 01/26/19 at 14:30 Vancomycin HCl (Vanco Iv Per Pharmacy) VANCOMYCIN PER PHARMACY PER PROTOCOL XX ; Start 01/27/19 at 12:00 Enoxaparin Sodium (Lovenox) 60 mg DAILY SC Last administered on 02/03/19 08:06; Admin Dose 60 MG; Start 01/28/19 at 09:00; Status Hold Docusate Sodium (Colace Liquid Cup) 100 mg BID NGT ; Start 01/27/19 at 22:00; Status Hold Terazosin HCl (Hytrin) 10 mg HS NGT Last administered on 02/17/19at 21:38; Admin Dose 10 MG; Start 01/28/19 at 21:00 Levothyroxine Sodium (Synthroid) 125 mcg BEFORE BREAKFAST NGT Last administer ed on 02/18/19 05:44; Admin Dose 125 MCG; Start 01/28/19 at 07:00 Ferrous Sulfate (Feosol Liquid Cup) 300 mg WITH MEALS GTB Last administered on 02/18/19 10:51; Admin Dose 300 MG; Start 01/28/19 at 11:30 Multivitamins (Multivitamin) 30 ml DAILY GTB Last administered on 02/18/19 08:50; Admin Dose 30 ML; Start 01/28/19 at 11:00 Nystatin/ Triamcinolone Acetonide (Mycolog Oint) 1 applic BID TOP Last administered on 02/18/19 08:51; Admin Dose 1 APPLIC; Start 01/28/19 at 22:30 Insulin Aspart (Novolog Insulin Pen) NOVOLOG *MILD* ALGORI... Q4 SC Last administered on 02/18/19 09:06; Admin Dose 3 UNIT; Start 01/29/19 at 05:00 Albuterol/ Ipratropium (Duoneb) 3 ml Q6HWA RESP THERAPY HHN Last administered on 02/18/19 08:01; Admin Dose 3 ML; Start 01/29/19 at 14:00 Epoetin Dae-epbx (RETACRIT(non-esrd)) 40,000 unit Mo@1700 SC Last administered on 02/17/19 17:18; Admin Dose 40,000 UNIT; Start 02/03/19 at 17:00 Aztreonam 1 gm/ Dextrose 50 ml @ 100 mls/hr Q12 IVPB Last administered on 02/18/19 08:50; Admin Dose 100 MLS/HR; Start 02/03/19 at 21:00 Eye Lubricant (Refresh Plus) 1 drop QID BOTH EYES Last administered on 02/18/19 08:50; Admin Dose 1 DROP; Start 02/06/19 at 09:00 Eye Lubricant (Akwa Oint) 1 applic HS LEFT EYE Last administered on 02/17/19 21:51; Admin Dose 1 APPLIC; Start 02/06/19 at 21:00 Multi-Ingredient Ointment (Aquaphor Oint 52.5 Gm) 1 applic BID TOP Last admini stered on 02/18/19 08:51; Admin Dose 1 APPLIC; Start 02/06/19 at 22:40 Lansoprazole (Prevacid) 30 mg BID@0600,1800 NGT Last administered on 02/18/19 05:44; Admin Dose 30 MG; Start 02/07/19 at 18:00 Tobramycin Sulfate/Sodium Chloride (Nilesh Inhal) 300 mg BID RESP THERAPY NEB Last administered on 02/17/19 07:48; Admin Dose 300 MG; Start 02/08/19 at 09:00 Norepinephrine 250 ml @ 1.875 mls/ hr TITRATE IV ; Start 02/14/19 at 03:00 Morphine Sulfate (morphine) 0.25 mg Q4H PRN IV SEVERE PAIN LEVEL 7-10 Last administered on 02/15/19 11:23; Admin Dose 0.25 MG; Start 02/15/19 at 11:00 Vancomycin HCl 750 mg/Dextrose 250 ml @ 125 mls/hr Q96H IVPB Last administered on 02/16/19at 23:09; Admin Dose 125 MLS/HR; Start 02/16/19 at 23:00 Metoprolol Tartrate (Lopressor) 12.5 mg BID NGT Last administered on 02/17/19at 21:37; Admin Dose 12.5 MG; Start 02/17/19 at 21:00 Dextrose 1,000 ml @ 30 mls/hr Q24H IV Last administered on 02/18/19at 10:51; Admin Dose 30 MLS/HR; Start 02/18/19 at 11:00 Insulin Glargine (Lantus) 8 units DAILY@2000 SC ; Start 02/18/19 at 20:00 Methylprednisolone Sodium Succinate (Solu-Medrol) 40 mg Q12 IV ; Start 02/18/19 at 21:00 LUCIAN HARKINS NP February 18, 2019 11:55
--- NOTE | 2019-02-18 12:19 | CONS ---
Assessment/Plan Assessment/Plan Hospital Course 88 yo M with multiple comorbidities who initially presented for evaluation of hiccups. He was noted to become acutely altered... for which neurology is consulted. He has been transferred to the ICU on several occasions due to ams in the context of respiratory distress and ? seizures.. On 02/14, he was transferred to the ICU for hypotension. The clinical picture suggests an acute toxic-metabolic encephalopathy.. Meningoencephalitis is, though, not entirely excluded. MRI brain is without acute ischemia, though notable for chronic infarcts. EEG was without ongoing epileptiform activity LP for CSF valuation was declined by medical decision makers. P: OK to Cont Keppra 500 BID for now Ativan IV PRN prolonged seizure (> 5 min) Agree w/ ASA/Lipitor daily pending the above Limit sedating medications where possible Other medical management per primary Will follow clinically Consultation Date/Type/Reason Admit Date/Time Jan 17, 2019 at 15:58 Type of Consult Neurology Reason for Consultation ams; eval for stroke Requesting Provider: IVAN AKHTAR MD Date/Time of Note DATE: 02/18/19 TIME: 12:19 24 HR Interval Summary Free Text/Dictation Continues critical care. Subjective hx not possible: pt non-verbal Exam Vital Signs Vitals Vital Signs Date Temp Pulse Resp B/P (MAP) Pulse Ox O2 O2 Flow FiO2 Time Delivery Rate 02/18/19 97.6 81 24 100/41 94 High Flow 12:00 (60) 02/18/19 40 11:26 Intake and Output 02/17/19 02/17/19 02/18/19 1515:00 23:00 07:00 IntakeIntake Total 1120 ml 810 ml 850 ml OutputOutput Total 240 ml 210 ml 400 ml BalanceBalance 880 ml 600 ml 450 ml Exam PE: Gen Appearance: No Apparent Distress HEENT: Normocephalic Cardiovascular: Regular rate Respiratory: respirations labored, symmetric Abdomen: Soft Extremities: Dry, skin peeling NE: The patient was obtunded and nonverbal. Cranial nerve examination was limited by mental status. Pupils were equal and reactive to light. There was no afferent pupillary defect. Funduscopic examination was limited. Face was grossly symmetric. Tone was normal. Muscle bulk was normal. I did not see fasciculations. The patient withdrew his extremities to noxious stimuli. Coordination and gait testing was limited by mental status. Arm and leg reflexes were within normal limits and symmetric. Gray's sign was absent. Plantar responses were flexor. NEGRA CORONA NP February 18, 2019 12:19
--- NOTE | 2019-02-18 16:11 | CONS ---
Assessment/Plan Assessment/Plan Hospital Course (Demo Recall) 88 yo male with multiple medical problems including DM, CRF, RA, PVD and chronic afib on Eliquis who presented to [facility] 01/05/19 with severe normocytic anemia and Hg ~7. 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 # Anemia-normocytic -Hg stable around 7. 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 Elevated Methylmalonic acid level noted -s/p IV iron. will recheck iron panel at this time -continue vitamin b12 weekly as vitamin b12 was low normal and methylmalonic acid was elevated. Continue folate as well. -No evidence of hemolysis at this time. -Transfuse to keep Hgb > 7. 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 -This may be a pseudocyst or a precancerous pancreatic lesion. -It has been growing in size but patient is asymptomatic. EUS with biopsy is recommended and can either be done inpatient or outpatient setting. -The patient at this time is unlikely a candidate for a whipple surgery however. Thank you to Dr. Alatorre for allowing [facility] to participate in the care of this patient. A total of 40 minutes was spent in consultation with this patient and all his questions were answered. Consultation Date/Type/Reason Admit Date/Time Jan 17, 2019 at 15:58 Initial Consult Date 01/18/19 Type of Consult hematology Reason for Consultation anemia Requesting Provider: IVAN AKHTAR MD Date/Time of Note DATE: 02/18/19 TIME: 15:43 24 HR Interval Summary Free Text/Dictation no acute overnight events. pt is now DNR Exam/Review of Systems Exam Vitals Vital Signs Date Temp Pulse Resp B/P (MAP) Pulse Ox O2 O2 Flow FiO2 Time Delivery Rate 02/18/19 72 23 121/39 96 High Flow 15:00 (66) 02/18/19 40 14:04 02/18/19 97.6 12:00 Intake and Output 5/02/17/19 02/18/19 1515:00 23:00 07:00 IntakeIntake Total 1120 ml 810 ml 850 ml OutputOutput Total 240 ml 210 ml 400 ml BalanceBalance 880 ml 600 ml 450 ml Constitutional: alert, frail Psych: confusion Head: normocephalic Eyes: nl conjunctiva ENMT: nl external ears & nose Neck: supple Respiratory: clear to auscultation Cardiovascular: regular rate and rhythm Gastrointestinal: soft Musculoskeletal: nl extremities to inspection Results Result Diagram: 02/18/19 0940 02/18/19 0356 Results 24hrs Laboratory Tests Test 02/17/19 15:50 02/17/19 19:52 02/18/19 00:21 02/18/19 03:56 Bedside Glucose 209 200 229 H White Blood Count 10.5 Red Blood Count 2.57 L Hemoglobin 7.3 L Hematocrit 24.9 L Mean Corpuscular 96.9 Volume Mean Corpuscular 28.4 L Hemoglobin Mean Corpuscular 29.3 L Hemoglobin Concent Red Cell 19.7 H Distribution Width Platelet Count 87 L Mean Platelet Volume 12.8 H Immature 0.300 Granulocytes % Neutrophils % 86.1 H Lymphocytes % 10.4 L Monocytes % 3.1 Eosinophils % 0.0 Basophils % 0.1 Nucleated Red Blood 0.8 H Cells % Immature 0.030 Granulocytes # Neutrophils # 9.0 H Lymphocytes # 1.1 Monocytes # 0.3 Eosinophils # 0.0 Basophils # 0.0 Nucleated Red Blood 0.1 H Cells # Sodium Level 145 H Potassium Level 4.1 Chloride Level 109 Carbon Dioxide Level 30 Anion Gap 6 Blood Urea Nitrogen 98 H Creatinine 2.11 H Est Glomerular Filtrat Rate mL/min Glucose Level 195 # Calcium Level 8.0 L Test 02/18/19 03:58 02/18/19 09:04 02/18/19 09:40 02/18/19 10:10 Bedside Glucose 228 H 243 H White Blood Count 10.0 Red Blood Count 2.59 L Hemoglobin 7.3 L Hematocrit 25.1 L Mean Corpuscular 96.9 Volume Mean Corpuscular 28.2 L Hemoglobin Mean Corpuscular 29.1 L Hemoglobin Concent Red Cell 19.7 H Distribution Width Platelet Count 86 L Mean Platelet Volume 12.6 H Immature 0.300 Granulocytes % Neutrophils % 87.4 H Lymphocytes % 9.1 L Monocytes % 3.2 Eosinophils % 0.0 Basophils % 0.0 Nucleated Red Blood 1.0 H Cells % Immature 0.030 Granulocytes # Neutrophils # 8.8 H Lymphocytes # 0.9 Monocytes # 0.3 Eosinophils # 0.0 Basophils # 0.0 Nucleated Red Blood 0.1 H Cells # Absolute 0.133 H Reticulocyte Count Percent Reticulocyte 5.1 H Count Iron Level 34 L Total Iron Binding 119 L Capacity Percent Iron 29 Saturation Stool Occult Blood POSITIVE Test 02/18/19 13:06 Bedside Glucose 214 Medications Medication Current Medications Lactulose (Enulose) 20 gm DAILY PRN PO CONSTIPATION; Start 01/17/19 at 18:17 Acetaminophen (Tylenol Tab) 650 mg Q4H PRN PO PAIN Last administered on 02/11/19at 21:29; Admin Dose 650 MG; Start 01/17/19 at 18:17 Miscellaneous Information (Pending [facility] Order For Wound Care) This patient ramirez... PRN PRN XX WOUND CARE; Start 01/17/19 at 18:17 Albuterol/ Ipratropium (Duoneb) 3 ml Q2H RESP THERAPY PRN HHN SHORTNESS OF B REATH Last administered on 02/13/19at 05:52; Admin Dose 3 ML; Start 01/17/19 at 18:17 Bisacodyl (Dulcolax) 10 mg BID PRN PO CONSTIPATION; Start 01/17/19 at 18:17; Status Hold Folic Acid (Folic Acid) 1 mg DAILY PO Last administered on 02/18/19at 09:02; Admin Dose 1 MG; Start 01/17/19 at 18:17 Latanoprost (Xalatan) 1 drop HS BOTH EYES Last administered on 02/17/19at 21:51; Admin Dose 1 DROP; Start 01/17/19 at 18:17 Nitroglycerin (Nitroglycerin (Sl Tab) 0.4 Mg) 0.4 tab Q5M PRN SL CHEST PAIN; Start 01/17/19 at 18:17 IV Flush (NS 3 ml) 3 ml PER PROTOCOL IV ; Start 01/17/19 at 18:17 Miscellaneous Information 1 ea NOTE XX ; Start 01/17/19 at 18:17 Glucose (Glutose) 15 gm Q15M PRN PO DECREASED GLUCOSE; Start 01/17/19 at 18:17 Glucose (Glutose) 22.5 gm Q15M PRN PO DECREASED GLUCOSE; Start 01/17/19 at 18:17 Dextrose (D50w Syringe) 25 ml Q15M PRN IV DECREASED GLUCOSE Last administered on 02/14/19at 17:23; Admin Dose 25 ML; Start 01/17/19 at 18:17 Dextrose (D50w Syringe) 50 ml Q15M PRN IV DECREASED GLUCOSE; Start 01/17/19 at 18:17 Glucagon (Glucagen) 1 mg Q15M PRN IM DECREASED GLUCOSE Last administered on 02/11/19at 17:55; Admin Dose 1 MG; Start 01/17/19 at 18:17 Glucose (Glutose) 15 gm Q15M PRN BUCCAL DECREASED GLUCOSE; Start 01/17/19 at 18:17 Bisacodyl (Dulcolax Supp) 10 mg DAILY PRN [place] CONSTIPATION; Start 01/17/19 at 18:17 Zinc Acetate/ Diphenhydramine (Benadryl 2% Cr) 1 applic Q6H PRN TOP ITCHING Last administered on 01/26/19at 07:54; Admin Dose 1 APPLIC; Start 01/19/19 at 16:3 7 IV Flush (NS 10 ml) 10 ml PRN PRN IV IV PROTOCOL; Start 01/20/19 at 14:30 Cyanocobalamin (Vitamin B12 Inj) 1,000 mcg Q7D IM Last administered on 02/17/19at 08:30; Admin Dose 1,000 MCG; Start 02/03/19 at 09:00 Metoprolol Tartrate (Lopressor) 5 mg Q4H PRN IV HR>110 Hold SBP<100; Start 01/26/19 at 14:30 Enoxaparin Sodium (Lovenox) 60 mg DAILY SC Last administered on 02/03/19at 08:06; Admin Dose 60 MG; Start 01/28/19 at 09:00; Status Hold Docusate Sodium (Colace Liquid Cup) 100 mg BID NGT ; Start 01/27/19 at 22:00; Status Hold Terazosin HCl (Hytrin) 10 mg HS NGT Last administered on 02/17/19at 21:38; Admin Dose 10 MG; Start 01/28/19 at 21:00 Levothyroxine Sodium (Synthroid) 125 mcg BEFORE BREAKFAST NGT Last administered on 02/18/19 05:44; Admin Dose 125 MCG; Start 01/28/19 at 07:00 Ferrous Sulfate (Feosol Liquid Cup) 300 mg WITH MEALS GTB Last administered on 02/18/19 10:51; Admin Dose 300 MG; Start 01/28/19 at 11:30 Multivitamins (Multivitamin) 30 ml DAILY GTB Last administered on 02/18/19 08:50; Admin Dose 30 ML; Start 01/28/19 at 11:00 Nystatin/ Triamcinolone Acetonide (Mycolog Oint) 1 applic BID TOP Last administered on 02/18/19 08:51; Admin Dose 1 APPLIC; Start 01/28/19 at 22:30 Insulin Aspart (Novolog Insulin Pen) NOVOLOG *MILD* ALGORI... Q4 SC Last administered on 02/18/19 13:11; Admin Dose 2 UNIT; Start 01/29/19 at 05:00 Albuterol/ Ipratropium (Duoneb) 3 ml Q6HWA RESP THERAPY HHN Last administered on 02/18/19 14:03; Admin Dose 3 ML; Start 01/29/19 at 14:00 Epoetin Dae-epbx (RETACRIT(non-esrd)) 40,000 unit Mo@1700 SC Last administered on 02/17/19 17:18; Admin Dose 40,000 UNIT; Start 02/03/19 at 17:00 Eye Lubricant (Refresh Plus) 1 drop QID BOTH EYES Last administered on 02/18/19 13:07; Admin Dose 1 DROP; Start 02/06/19 at 09:00 Eye Lubricant (Akwa Oint) 1 applic HS LEFT EYE Last administered on 02/17/19 21:51; Admin Dose 1 APPLIC; Start 02/06/19 at 21:00 Multi-Ingredient Ointment (Aquaphor Oint 52.5 Gm) 1 applic BID TOP Last administered on 02/18/19 08:51; Admin Dose 1 APPLIC; Start 02/06/19 at 22:40 Lansoprazole (Prevacid) 30 mg BID@0600,1800 NGT Last administered on 02/18/19 05:44; Admin Dose 30 MG; Start 02/07/19 at 18:00 Morphine Sulfate (morphine) 0.25 mg Q4H PRN IV SEVERE PAIN LEVEL 7-10 Last administered on 02/15/19at 11:23; Admin Dose 0.25 MG; Start 02/15/19 at 11:00 Metoprolol Tartrate (Lopressor) 12.5 mg BID NGT Last administered on 02/17/19at 21:37; Admin Dose 12.5 MG; Start 02/17/19 at 21:00 Dextrose 1,000 ml @ 30 mls/hr Q24H IV Last administered on 02/18/19at 10:51; Admin Dose 30 MLS/HR; Start 02/18/19 at 11:00 Insulin Glargine (Lantus) 8 units DAILY@2000 SC ; Start 02/18/19 at 20:00 Methylprednisolone Sodium Succinate (Solu-Medrol) 40 mg Q12 IV ; Start 02/18/19 at 21:00 OREN MARSH M.D. February 18, 2019 16:11
[2019-02-18] MEDS: LATANOPROST 0.005% 2.5 ML OPH BOTH EYES SCH (20:43)
[2019-02-18] MEDS: OCULAR LUBRICANT 3.5 GM OPH OINT LEFT EYE SCH (20:45)
[2019-02-18] MEDS: INSULIN GLARGINE [LANTus] (100 UNITS/ML) SYG SC SCH (21:34)
[2019-02-18] MEDS: TERAZOSIN 5 MG CAP NGT SCH (22:27)
[2019-02-19] VITALS (9 sets, daily range): BP systolic 99–126; BP diastolic 44–59; PULSE 67–91; RESP 18–22
[2019-02-19] MEDS: INSULIN ASPART [NOVOLOG] 3 ML PEN SC SCH ×6 (01:39→21:14)
[2019-02-19] MEDS: LANSOPRAZOLE 30 MG CAP NGT SCH (05:52)
[2019-02-19] MEDS: LEVOTHYROXINE 125 MCG TAB NGT SCH (06:06)
[2019-02-19] MEDS: ALBUTEROL/IPRATROPIUM (NEB) 3 ML AMP HHN SCH ×3 (08:05→20:01)
[2019-02-19] MEDS: METHYLPREDNISOLONE 40 MG INJ IV SCH ×2 (09:40→21:09)
[2019-02-19] MEDS: METOPROLOL 25 MG TAB NGT SCH ×2 (09:41→21:11)
[2019-02-19] MEDS: MULTIVITAMINS 30 ML CUP GTB SCH (09:41)
[2019-02-19] MEDS: FOLIC ACID 1 MG TAB PO SCH (09:41)
[2019-02-19] MEDS: CARBOXYMETHYLCELLULOSE 0.5% 0.4 ML OPH BOTH EYES SCH ×4 (09:41→21:08)
[2019-02-19] MEDS: FERROUS SULFATE 60 MG/ML 5ML CUP GTB SCH ×3 (09:41→17:35)
[2019-02-19] MEDS: AQUAPHOR 52.5 GM OINT TOP SCH ×2 (10:07→22:23)
[2019-02-19] MEDS: NYSTATIN/TRIAMCINOLONE 15 GM OINT TOP SCH ×2 (10:08→21:12)
[2019-02-19] MEDS: BALSAM PERU/CASTOR OIL 60 GM TUBE TOP SCH ×2 (10:08→21:11)
--- NOTE | 2019-02-19 10:27 | PN ---
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 Septic shock now on pressors likely secondary to pneumonia on levophed resolved # Hypothermia ? sepsis #. 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 Chronic renal failure likely secondary to sepsis, improved, normal creatinine #. Hypertension.currently hypotensive resolved # Impending respiratory failure on high flow likely secondary to fluid overload/pneumonia # Anasarca # Hyperlipidemia. # Hypothyroidism. # Bilateral groin cellulitis more likely associated with mateus, patches in groin and axilla bilaterally. skin peeling # History of rheumatoid arthritis with joint deformities. # Diabetes type 2. # Hx of CABGx2, carotid stent #. Peripheral vascular disease. #. Chronic a.fib, now on lovenox #. right arm edema # Neoplasm per CT abdomen. 4.3 cm cystic lesion along the pancreas body, enlarged since 10/10/2012 (previously 2.4 cm). 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 # Possible allergic skin reaction ? drug present since admission> improved s/p biopsy/ Amrik Serafin > limit results solar keratosis # hypoThermia #Hypernatremia [facility] due to dehydration improving # metabolic alkalosis Plan -On high flow. 60% -Gentle diuresis as patient has worsening renal failure/uremia -spoke to Dr De Leon, patient might need thoracentesis on the right -dc d5 -[place] flushes -cw Lantus -Monitor kidney function -dec steroids - nebs, - GI consult> hold lovenox due to possible bleeding, iv ppi -c w keppra - cw lovenox 60 for afib> held due to anemia ? ASA - GI and DVT prophylaxsis -oncology consul dr Lorenzo aware:he said Ca 19-9 is negative indicating unlikely malignant. This may be a pseudocyst or a precancerous pancreatic lesion. It has been growing in size but patient is asymptomatic. EUS with biopsy is recommended and can either be done inpatient or outpatient setting. The patient at this time is unlikely a candidate for a Whipple surgery however. -skin care - s/p skin biopsy pending results solar elastosis according to them is probably due to antibiotics -Off of all antibiotics Limitations to discharge labile respiratory status with pneumonia CHF renal failure and altered mental status he is DNR/DNI Result Diagram: 02/19/19 0613 02/19/19 0613 Results 24hrs Laboratory Tests Test 02/18/19 13:06 02/18/19 17:34 02/18/19 20:55 02/19/19 01:34 Bedside Glucose 214 213 186 212 Test 02/19/19 04:56 02/19/19 06:13 02/19/19 07:47 02/19/19 09:39 Bedside Glucose 203 231 H 221 H White Blood Count 7.4 # Red Blood Count 2.63 L Hemoglobin 7.6 L Hematocrit 25.1 L Mean Corpuscular 95.4 Volume Mean Corpuscular 28.9 L Hemoglobin Mean Corpuscular 30.3 L Hemoglobin Concent Red Cell 19.6 H Distribution Width Platelet Count 92 L Mean Platelet Volume 12.3 H Immature 0.400 Granulocytes % Neutrophils % 88.0 H Lymphocytes % 8.3 L Monocytes % 3.3 Eosinophils % 0.0 Basophils % 0.0 Nucleated Red Blood 2.4 H Cells % Immature 0.030 Granulocytes # Neutrophils # 6.5 Lymphocytes # 0.6 L Monocytes # 0.2 L Eosinophils # 0.0 Basophils # 0.0 Nucleated Red Blood 0.2 H Cells # Sodium Level 145 H Potassium Level 3.6 Chloride Level 110 Carbon Dioxide Level 27 Anion Gap 8 Blood Urea Nitrogen 107 H Creatinine 2.00 H Est Glomerular Filtrat Rate mL/min Glucose Level 185 Calcium Level 7.9 L Phosphorus Level 4.7 Magnesium Level 2.4 Subjective 24 Hr Interval Summary Free Text/Dictation On high flow now up to 60% FiO2 due to desaturation Waxing and waning mental status Exam/Review of Systems Exam Vitals Vital Signs Date Temp Pulse Resp B/P (MAP) Pulse Ox O2 O2 Flow FiO2 Time Delivery Rate 02/19/19 90 40 08:16 02/19/19 87 08:16 02/19/19 89 08:00 02/19/19 97.4 109/44 07:11 (65) 02/18/19 High Flow 18:00 Intake and Output 02/18/19 02/18/19 02/19/19 1515:00 23:00 07:00 IntakeIntake Total 1014.5 ml 210 ml 1170 ml OutputOutput Total 125 ml 600 ml BalanceBalance 1014.5 ml 85 ml 570 ml Exam NG tube Constitutional: alert, frail, try to squeeze his fingers Head: normocephalic Eyes: nl conjunctiva Neck: supple Respiratory: diminished breath sounds, crackles Cardiovascular: regular rate and rhythm Gastrointestinal: soft Genitourinary - Male: nl penis Skin: other (skin is peeling), skin rash is much improved. Results Results Results 24hrs Laboratory Tests Test 02/18/19 13:06 02/18/19 17:34 02/18/19 20:55 02/19/19 01:34 Bedside Glucose 214 213 186 212 Test 02/19/19 04:56 02/19/19 06:13 02/19/19 07:47 02/19/19 09:39 Bedside Glucose 203 231 H 221 H White Blood Count 7.4 # Red Blood Count 2.63 L Hemoglobin 7.6 L Hematocrit 25.1 L Mean Corpuscular 95.4 Volume Mean Corpuscular 28.9 L Hemoglobin Mean Corpuscular 30.3 L Hemoglobin Concent Red Cell 19.6 H Distribution Width Platelet Count 92 L Mean Platelet Volume 12.3 H Immature 0.400 Granulocytes % Neutrophils % 88.0 H Lymphocytes % 8.3 L Monocytes % 3.3 Eosinophils % 0.0 Basophils % 0.0 Nucleated Red Blood 2.4 H Cells % Immature 0.030 Granulocytes # Neutrophils # 6.5 Lymphocytes # 0.6 L Monocytes # 0.2 L Eosinophils # 0.0 Basophils # 0.0 Nucleated Red Blood 0.2 H Cells # Sodium Level 145 H Potassium Level 3.6 Chloride Level 110 Carbon Dioxide Level 27 Anion Gap 8 Blood Urea Nitrogen 107 H Creatinine 2.00 H Est Glomerular Filtrat Rate mL/min Glucose Level 185 Calcium Level 7.9 L Phosphorus Level 4.7 Magnesium Level 2.4 Medications Medication Current Medications Acetaminophen (Tylenol Tab) 650 mg Q4H PRN PO PAIN Last administered on 02/11/19 at 21:29; Admin Dose 650 MG; Start 01/17/19 at 18:17 Miscellaneous Information (Pending [facility] Order For Wound Care) This patient ramirez... PRN PRN XX WOUND CARE; Start 01/17/19 at 18:17 Albuterol/ Ipratropium (Duoneb) 3 ml Q2H RESP THERAPY PRN HHN SHORTNESS OF BREATH Last administered on 02/13/19at 05:52; Admin Dose 3 ML; Start 01/17/19 at 18:17 Bisacodyl (Dulcolax) 10 mg BID PRN PO CONSTIPATION; Start 01/17/19 at 18:17; Status Hold Folic Acid (Folic Acid) 1 mg DAILY PO Last administered on 02/19/19at 09:41; Admin Dose 1 MG; Start 01/17/19 at 18:17 Latanoprost (Xalatan) 1 drop HS BOTH EYES Last administered on 02/18/19at 20:43; Admin Dose 1 DROP; Start 01/17/19 at 18:17 Nitroglycerin (Nitroglycerin (Sl Tab) 0.4 Mg) 0.4 tab Q5M PRN SL CHEST PAIN; Start 01/17/19 at 18:17 IV Flush (NS 3 ml) 3 ml PER PROTOCOL IV ; Start 01/17/19 at 18:17 Glucose (Glutose) 15 gm Q15M PRN PO DECREASED GLUCOSE; Start 01/17/19 at 18:17 Glucose (Glutose) 22.5 gm Q15M PRN PO DECREASED GLUCOSE; Start 01/17/19 at 18:17 Dextrose (D50w Syringe) 25 ml Q15M PRN IV DECREASED GLUCOSE Last administered on 02/14/19at 17:23; Admin Dose 25 ML; Start 01/17/19 at 18:17 Dextrose (D50w Syringe) 50 ml Q15M PRN IV DECREASED GLUCOSE; Start 01/17/19 at 18:17 Glucagon (Glucagen) 1 mg Q15M PRN IM DECREASED GLUCOSE Last administered on 02/11/19at 17:55; Admin Dose 1 MG; Start 01/17/19 at 18:17 Glucose (Glutose) 15 gm Q15M PRN BUCCAL DECREASED GLUCOSE; Start 01/17/19 at 18:17 Bisacodyl (Dulcolax Supp) 10 mg DAILY PRN [place] CONSTIPATION; Start 01/17/19 at 18:17 Zinc Acetate/ Diphenhydramine (Benadryl 2% Cr) 1 applic Q6H PRN TOP ITCHING Last administered on 01/26/19 07:54; Admin Dose 1 APPLIC; Start 01/19/19 at 16:37 IV Flush (NS 10 ml) 10 ml PRN PRN IV IV PROTOCOL; Start 01/20/19 at 14:30 Cyanocobalamin (Vitamin B12 Inj) 1,000 mcg Q7D IM Last administered on 02/17/19 08:30; Admin Dose 1,000 MCG; Start 02/03/19 at 09:00 Metoprolol Tartrate (Lopressor) 5 mg Q4H PRN IV HR>110 Hold SBP<100; Start 01/26/19 at 14:30 Enoxaparin Sodium (Lovenox) 60 mg DAILY SC Last administered on 02/03/19 08:06; Admin Dose 60 MG; Start 01/28/19 at 09:00; Status Hold Docusate Sodium (Colace Liquid Cup) 100 mg BID NGT ; Start 01/27/19 at 22:00; Status Hold Terazosin HCl (Hytrin) 10 mg HS NGT Last administered on 02/18/19 22:27; Admin Dose 10 MG; Start 01/28/19 at 21:00 Levothyroxine Sodium (Synthroid) 125 mcg BEFORE BREAKFAST NGT Last administered on 02/19/19 06:06; Admin Dose 125 MCG; Start 01/28/19 at 07:00 Ferrous Sulfate (Feosol Liquid Cup) 300 mg WITH MEALS GTB Last administered on 02/19/19 09:41; Admin Dose 300 MG; Start 01/28/19 at 11:30 Multivitamins (Multivitamin) 30 ml DAILY GTB Last administered on 02/19/19 09:41; Admin Dose 30 ML; Start 01/28/19 at 11:00 Nystatin/ Triamcinolone Acetonide (Mycolog Oint) 1 applic BID TOP Last administered on 02/19/19 10:08; Admin Dose 1 APPLIC; Start 01/28/19 at 22:30 Insulin Aspart (Novolog Insulin Pen) NOVOLOG *MILD* ALGORI... Q4 SC Last administered on 02/19/19 10:11; Admin Dose 2 UNIT; Start 01/29/19 at 05:00 Albuterol/ Ipratropium (Duoneb) 3 ml Q6HWA RESP THERAPY HHN Last administered on 02/19/19 08:05; Admin Dose 3 ML; Start 01/29/19 at 14:00 Epoetin Dae-epbx (RETACRIT(non-esrd)) 40,000 unit Mo@1700 SC Last administered on 02/17/19 17:18; Admin Dose 40,000 UNIT; Start 02/03/19 at 17:00 Eye Lubricant (Refresh Plus) 1 drop QID BOTH EYES Last administered on 02/19/19 09:41; Admin Dose 1 DROP; Start 02/06/19 at 09:00 Eye Lubricant (Akwa Oint) 1 applic HS LEFT EYE Last administered on 02/18/19 20:45; Admin Dose 1 APPLIC; Start 02/06/19 at 21:00 Multi-Ingredient Ointment (Aquaphor Oint 52.5 Gm) 1 applic BID TOP Last administered on 02/19/19 10:07; Admin Dose 1 APPLIC; Start 02/06/19 at 22:40 Lansoprazole (Prevacid) 30 mg BID@0600,1800 NGT Last administered on 02/19/19 05:52; Admin Dose 30 MG; Start 02/07/19 at 18:00 Morphine Sulfate (morphine) 0.25 mg Q4H PRN IV SEVERE PAIN LEVEL 7-10 Last administered on 02/15/19 11:23; Admin Dose 0.25 MG; Start 02/15/19 at 11:00 Metoprolol Tartrate (Lopressor) 12.5 mg BID NGT Last administered on 02/19/19 09:41; Admin Dose 12.5 MG; Start 02/17/19 at 21:00 Insulin Glargine (Lantus) 8 units DAILY@2000 SC Last administered on 02/18/19 21:34; Admin Dose 8 UNITS; Start 02/18/19 at 20:00 Methylprednisolone Sodium Succinate (Solu-Medrol) 40 mg Q12 IV Last administered on 02/19/19 09:40; Admin Dose 40 MG; Start 02/18/19 at 21:00 IVAN AKHTAR MD February 19, 2019 10:27
[2019-02-19] MEDS ORDERED: FUROSEMIDE 20 MG INJ IV ONE (10:30)
--- NOTE | 2019-02-19 12:52 | CONS ---
Consult Date/Type/Reason Admit Date/Time Jan 17, 2019 at 15:58 Initial Consult Date 01/18/19 Type of Consult Pulmonary Requesting Provider: IVAN AKHTAR MD Date/Time of Note DATE: 02/19/19 TIME: 12:52 Subjective No significant changes. Patient remains mostly somnolent. Objective Vital Signs Date Temp Pulse Resp B/P (MAP) Pulse Ox O2 O2 Flow FiO2 Time Delivery Rate 02/19/19 92 50 12:21 02/19/19 97.4 71 20 114/53 11:55 (73) 02/18/19 High Flow 18:00 Intake and Output 02/18/19 02/18/19 02/19/19 1515:00 23:00 07:00 IntakeIntake Total 1014.5 ml 210 ml 1170 ml OutputOutput Total 125 ml 600 ml BalanceBalance 1014.5 ml 85 ml 570 ml Exam GENERAL: Elderly appearing gentleman on nasal cannula O2 nasogastric tube in place VITAL SIGNS: per chart NECK: Supple. No JVD or lymphadenopathy. CARDIAC EXAM: S1, S2. Early systolic ejection murmur. CHEST: Diminished air entry bilaterally ABDOMEN: Soft, nontender. No guarding or rebound. EXTREMITIES: No cyanosis, clubbing or edema. NEUROLOGIC: Generalized weakness. Vent Setting Ventilator Support Mode: AC Fraction of Inspired Oxygen pe: 50 Positive End Expiratory Pressu: 5.0 Results/Medications Result Diagram: 02/19/19 0613 02/19/19 0613 Results 24 hrs Laboratory Tests Test 02/18/19 13:06 02/18/19 17:34 02/18/19 20:55 02/19/19 01:34 Bedside Glucose 214 213 186 212 Test 02/19/19 04:56 02/19/19 06:13 02/19/19 07:47 02/19/19 09:39 Bedside Glucose 203 231 H 221 H White Blood Count 7.4 # Red Blood Count 2.63 L Hemoglobin 7.6 L Hematocrit 25.1 L Mean Corpuscular 95.4 Volume Mean Corpuscular 28.9 L Hemoglobin Mean Corpuscular 30.3 L Hemoglobin Concent Red Cell 19.6 H Distribution Width Platelet Count 92 L Mean Platelet Volume 12.3 H Immature 0.400 Granulocytes % Neutrophils % 88.0 H Lymphocytes % 8.3 L Monocytes % 3.3 Eosinophils % 0.0 Basophils % 0.0 Nucleated Red Blood 2.4 H Cells % Immature 0.030 Granulocytes # Neutrophils # 6.5 Lymphocytes # 0.6 L Monocytes # 0.2 L Eosinophils # 0.0 Basophils # 0.0 Nucleated Red Blood 0.2 H Cells # Sodium Level 145 H Potassium Level 3.6 Chloride Level 110 Carbon Dioxide Level 27 Anion Gap 8 Blood Urea Nitrogen 107 H Creatinine 2.00 H Est Glomerular Filtrat Rate mL/min Glucose Level 185 Calcium Level 7.9 L Phosphorus Level 4.7 Magnesium Level 2.4 Medications Current Medications Acetaminophen (Tylenol Tab) 650 mg Q4H PRN PO PAIN Last administered on 02/11/19at 21:29; Admin Dose 650 MG; Start 01/17/19 at 18:17 Miscellaneous Information (Pending [facility] Order For Wound Care) This patient ramirez... PRN PRN XX WOUND CARE; Start 01/17/19 at 18:17 Albuterol/ Ipratropium (Duoneb) 3 ml Q2H RESP THERAPY PRN HHN SHORTNESS OF BREATH Last administered on 02/13/19at 05:52; Admin Dose 3 ML; Start 01/17/19 at 18:17 Bisacodyl (Dulcolax) 10 mg BID PRN PO CONSTIPATION; Start 01/17/19 at 18:17; Status Hold Folic Acid (Folic Acid) 1 mg DAILY PO Last administered on 02/19/19at 09:41; Admin Dose 1 MG; Start 01/17/19 at 18:17 Latanoprost (Xalatan) 1 drop HS BOTH EYES Last administered on 02/18/19at 20:43; Admin Dose 1 DROP; Start 01/17/19 at 18:17 Nitroglycerin (Nitroglycerin (Sl Tab) 0.4 Mg) 0.4 tab Q5M PRN SL CHEST PAIN; Start 01/17/19 at 18:17 IV Flush (NS 3 ml) 3 ml PER PROTOCOL IV ; Start 01/17/19 at 18:17 Glucose (Glutose) 15 gm Q15M PRN PO DECREASED GLUCOSE; Start 01/17/19 at 18:17 Glucose (Glutose) 22.5 gm Q15M PRN PO DECREASED GLUCOSE; Start 01/17/19 at 18:17 Dextrose (D50w Syringe) 25 ml Q15M PRN IV DECREASED GLUCOSE Last administered on 02/14/19 17:23; Admin Dose 25 ML; Start 01/17/19 at 18:17 Dextrose (D50w Syringe) 50 ml Q15M PRN IV DECREASED GLUCOSE; Start 01/17/19 at 18:17 Glucagon (Glucagen) 1 mg Q15M PRN IM DECREASED GLUCOSE Last administered on 02/11/19at 17:55; Admin Dose 1 MG; Start 01/17/19 at 18:17 Glucose (Glutose) 15 gm Q15M PRN BUCCAL DECREASED GLUCOSE; Start 01/17/19 at 18:17 Bisacodyl (Dulcolax Supp) 10 mg DAILY PRN [place] CONSTIPATION; Start 01/17/19 at 18:17 Zinc Acetate/ Diphenhydramine (Benadryl 2% Cr) 1 applic Q6H PRN TOP ITCHING Last administered on 01/26/19at 07:54; Admin Dose 1 APPLIC; Start 01/19/19 at 16:37 IV Flush (NS 10 ml) 10 ml PRN PRN IV IV PROTOCOL; Start 01/20/19 at 14:30 Cyanocobalamin (Vitamin B12 Inj) 1,000 mcg Q7D IM Last administered on 02/17/19at 08:30; Admin Dose 1,000 MCG; Start 02/03/19 at 09:00 Metoprolol Tartrate (Lopressor) 5 mg Q4H PRN IV HR>110 Hold SBP<100; Start 01/26/19 at 14:30 Enoxaparin Sodium (Lovenox) 60 mg DAILY SC Last administered on 02/03/19 08:06; Admin Dose 60 MG; Start 01/28/19 at 09:00; Status Hold Docusate Sodium (Colace Liquid Cup) 100 mg BID NGT ; Start 01/27/19 at 22:00; Status Hold Terazosin HCl (Hytrin) 10 mg HS NGT Last administered on 02/18/19at 22:27; Admin Dose 10 MG; Start 01/28/19 at 21:00 Levothyroxine Sodium (Synthroid) 125 mcg BEFORE BREAKFAST NGT Last administered on 02/19/19 06:06; Admin Dose 125 MCG; Start 01/28/19 at 07:00 Ferrous Sulfate (Feosol Liquid Cup) 300 mg WITH MEALS GTB Last administered on 02/19/19 09:41; Admin Dose 300 MG; Start 01/28/19 at 11:30 Multivitamins (Multivitamin) 30 ml DAILY GTB Last administered on 02/19/19 09:41; Admin Dose 30 ML; Start 01/28/19 at 11:00 Nystatin/ Triamcinolone Acetonide (Mycolog Oint) 1 applic BID TOP Last administered on 02/19/19 10:08; Admin Dose 1 APPLIC; Start 01/28/19 at 22:30 Insulin Aspart (Novolog Insulin Pen) NOVOLOG *MILD* ALGORI... Q4 SC Last administered on 02/19/19 10:11; Admin Dose 2 UNIT; Start 01/29/19 at 05:00 Albuterol/ Ipratropium (Duoneb) 3 ml Q6HWA RESP THERAPY HHN Last administered on 02/19/19 08:05; Admin Dose 3 ML; Start 01/29/19 at 14:00 Epoetin Dae-epbx (RETACRIT(non-esrd)) 40,000 unit Mo@1700 SC Last administered on 02/17/19 17:18; Admin Dose 40,000 UNIT; Start 02/03/19 at 17:00 Eye Lubricant (Refresh Plus) 1 drop QID BOTH EYES Last administered on 02/19/19 09:41; Admin Dose 1 DROP; Start 02/06/19 at 09:00 Eye Lubricant (Akwa Oint) 1 applic HS LEFT EYE Last administered on 02/18/19 20:45; Admin Dose 1 APPLIC; Start 02/06/19 at 21:00 Multi-Ingredient Ointment (Aquaphor Oint 52.5 Gm) 1 applic BID TOP Last administered on 02/19/19 10:07; Admin Dose 1 APPLIC; Start 02/06/19 at 22:40 Lansoprazole (Prevacid) 30 mg BID@0600,1800 NGT Last administered on 02/19/19 05:52; Admin Dose 30 MG; Start 02/07/19 at 18:00 Morphine Sulfate (morphine) 0.25 mg Q4H PRN IV SEVERE PAIN LEVEL 7-10 Last administered on 02/15/19 11:23; Admin Dose 0.25 MG; Start 02/15/19 at 11:00 Metoprolol Tartrate (Lopressor) 12.5 mg BID NGT Last administered on 02/19/19at 09:41; Admin Dose 12.5 MG; Start 02/17/19 at 21:00 Insulin Glargine (Lantus) 8 units DAILY@2000 SC Last administered on 02/18/19at 21:34; Admin Dose 8 UNITS; Start 02/18/19 at 20:00 Methylprednisolone Sodium Succinate (Solu-Medrol) 40 mg Q12 IV Last administered on 02/19/19at 09:40; Admin Dose 40 MG; Start 02/18/19 at 21:00 Assessment/Plan Hospital Course (Demo Recall) IMP: 1. s/p Acute hypoxemic respiratory failure likely secondary to combination of volume overload and pneumonia, now on high flow O2. 2. Encephalopathy underlying dementia versus toxic metabolic, appears to be slowly improving possibly secondary to elevated sodium. 3. Valvular heart disease 4. Severe dysphagia 5. Status post septic shock likely secondary to above, persistent leukocytosis. 6. Anemia, no active GI bleeding 7. Skin diffuse excoriating skin lesion unclear etiology not consistent with history of "red man" syndrome. or pemphigus. Likely drug reaction. 8. Anemia 9. Status post septic shock RECS: 1. Continue high flow O2 2. Continue broad-spectrum antibiotics 3. Infectious work-up as per ID 4. Monitor H&H 5. Thoracentesis right pleural effusion Overall prognosis extremely poor. DIANA MCRAE MD, [facility] February 19, 2019 12:52
--- NOTE | 2019-02-19 13:18 | CONS ---
Assessment/Plan Assessment/Plan Hospital Course 88 yo M with multiple comorbidities who initially presented for evaluation of hiccups. He was noted to become acutely altered... for which neurology is consulted. He has been transferred to the ICU on several occasions due to ams in the context of respiratory distress and ? seizures.. On 02/14, he was transferred to the ICU for hypotension. The clinical picture suggests an acute toxic-metabolic encephalopathy.. Meningoencephalitis is, though, not entirely excluded. MRI brain is without acute ischemia, though notable for chronic infarcts. EEG was without ongoing epileptiform activity LP for CSF valuation was declined by medical decision makers. P: OK to Cont Keppra 500 BID for now Ativan IV PRN prolonged seizure (> 5 min) Agree w/ ASA/Lipitor daily pending the above Limit sedating medications where possible Other medical management per primary Will follow clinically Consultation Date/Type/Reason Admit Date/Time Jan 17, 2019 at 15:58 Type of Consult Neurology Reason for Consultation ams; eval for stroke Requesting Provider: IVAN AKHTAR MD Date/Time of Note DATE: 02/19/19 TIME: 13:18 24 HR Interval Summary Free Text/Dictation Continues acute care. Exam Vital Signs Vitals Vital Signs Date Temp Pulse Resp B/P (MAP) Pulse Ox O2 O2 Flow FiO2 Time Delivery Rate 02/19/19 92 50 12:21 02/19/19 97.4 71 20 114/53 11:55 (73) 02/18/19 High Flow 18:00 Intake and Output 02/18/19 02/18/19 02/19/19 1515:00 23:00 07:00 IntakeIntake Total 1014.5 ml 210 ml 1170 ml OutputOutput Total 125 ml 600 ml BalanceBalance 1014.5 ml 85 ml 570 ml Exam PE: Gen Appearance: No Apparent Distress HEENT: Normocephalic Cardiovascular: Regular rate Respiratory: respirations labored, symmetric Abdomen: Soft Extremities: Dry. NE: The patient was obtunded and nonverbal. Cranial nerve examination was limited by mental status. Pupils were equal and reactive to light. There was no afferent pupillary defect. Funduscopic examination was limited. Face was grossly symmetric. Tone was normal. Muscle bulk was normal. I did not see fasciculations. The patient withdrew his extremities to noxious stimuli. Coordination and gait testing was limited by mental status. Arm and leg reflexes were within normal limits and symmetric. Gray's sign was absent. Plantar responses were flexor. NEGRA CORONA NP February 19, 2019 13:18
--- NOTE | 2019-02-19 13:37 | CONS ---
Assessment/Plan Assessment/Plan Hospital Course (Demo Recall) No acute events, remains on high flow oxygen Antimicrobials: none Indwelling: Left subclavian triple-lumen catheter, Wade catheter, NG tube Allergy: Penicillin, sulfa Physical examination: Obese well-developed chronically ill-appearing - [place] man who is lethargic, in no distress. Head atraumatic normocephalic sclera nonicteric. Neck is supple chest rise symmetrical breath sounds diminished bases. Heart: S1-S2. Abdomen obese soft bowel sounds present extremities without cyanosis, bilateral edema Assessment: 1. Sepsis s/p shock 2. Acute hypoxemic respiratory failure, likely ongoing aspiration 2. Acute encephalopathy 3. Seizures 4. Healthcare acquired pneumonia 5. Coronary artery disease/history of CABG 6. Advanced rheumatoid arthritis 5. Chronic atrial fibrillation 6. Diabetes 7. BPH 9. Acute on chronic anemia===> s/p EGD/colonoscopy 01/09/19 10. Status post right epididymitis 11. Pancreatic lesion per CT, unlikely neoplasm per oncology notes 12. 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 Skin lesions, s/p punch bx, pathology consistent with allergic reaction Plan: Remains unchanged, completed antibiotics, overall prognosis poor, patient is DNR/DNI Consultation Date/Type/Reason Admit Date/Time Jan 17, 2019 at 15:58 Initial Consult Date 01/18/19 Type of Consult id Requesting Provider: IVAN AKHTAR MD Date/Time of Note DATE: 02/19/19 TIME: 13:36 Exam/Review of Systems Exam Vitals Vital Signs Date Temp Pulse Resp B/P (MAP) Pulse Ox O2 O2 Flow FiO2 Time Delivery Rate 02/19/19 100 50 13:29 02/19/19 97.4 71 20 114/53 11:55 (73) 02/18/19 High Flow 18:00 Intake and Output 02/18/19 02/18/19 02/19/19 1515:00 23:00 07:00 IntakeIntake Total 1014.5 ml 210 ml 1170 ml OutputOutput Total 125 ml 600 ml BalanceBalance 1014.5 ml 85 ml 570 ml Results Result Diagram: 02/19/19 0613 02/19/19 0613 Results 24hrs Laboratory Tests Test 02/18/19 17:34 02/18/19 20:55 02/19/19 01:34 02/19/19 04:56 Bedside Glucose 213 186 212 203 Test 02/19/19 06:13 02/19/19 07:47 02/19/19 09:39 02/19/19 12:45 White Blood Count 7.4 # Red Blood Count 2.63 L Hemoglobin 7.6 L Hematocrit 25.1 L Mean Corpuscular 95.4 Volume Mean Corpuscular 28.9 L Hemoglobin Mean Corpuscular 30.3 L Hemoglobin Concent Red Cell 19.6 H Distribution Width Platelet Count 92 L Mean Platelet Volume 12.3 H Immature 0.400 Granulocytes % Neutrophils % 88.0 H Lymphocytes % 8.3 L Monocytes % 3.3 Eosinophils % 0.0 Basophils % 0.0 Nucleated Red Blood 2.4 H Cells % Immature 0.030 Granulocytes # Neutrophils # 6.5 Lymphocytes # 0.6 L Monocytes # 0.2 L Eosinophils # 0.0 Basophils # 0.0 Nucleated Red Blood 0.2 H Cells # Sodium Level 145 H Potassium Level 3.6 Chloride Level 110 Carbon Dioxide Level 27 Anion Gap 8 Blood Urea Nitrogen 107 H Creatinine 2.00 H Est Glomerular Filtrat Rate mL/min Glucose Level 185 Calcium Level 7.9 L Phosphorus Level 4.7 Magnesium Level 2.4 Bedside Glucose 231 H 221 H 225 H Medications Medication Current Medications Acetaminophen (Tylenol Tab) 650 mg Q4H PRN PO PAIN Last administered on 02/11/19at 21:29; Admin Dose 650 MG; Start 01/17/19 at 18:17 [facility]isc[facility] This patient ramirez... PRN PRN XX WOUND CARE; Start 01/17/19 at 18:17 Albuterol/ Ipratropium (Duoneb) 3 ml Q2H RESP THERAPY PRN HHN SHORTNESS OF BREATH Last administered on 02/13/19at 05:52; Admin Dose 3 ML; Start 01/17/19 at 18:17 Bisacodyl (Dulcolax) 10 mg BID PRN PO CONSTIPATION; Start 01/17/19 at 18:17; Status Hold Folic Acid (Folic Acid) 1 mg DAILY PO Last administered on 02/19/19at 09:41; Admin Dose 1 MG; Start 01/17/19 at 18:17 Latanoprost (Xalatan) 1 drop HS BOTH EYES Last administered on 02/18/19at 20:43; Admin Dose 1 DROP; Start 01/17/19 at 18:17 Nitroglycerin (Nitroglycerin (Sl Tab) 0.4 Mg) 0.4 tab Q5M PRN SL CHEST PAIN; Start 01/17/19 at 18:17 IV Flush (NS 3 ml) 3 ml PER PROTOCOL IV ; Start 01/17/19 at 18:17 Glucose (Glutose) 15 gm Q15M PRN PO DECREASED GLUCOSE; Start 01/17/19 at 18:17 Glucose (Glutose) 22.5 gm Q15M PRN PO DECREASED GLUCOSE; Start 01/17/19 at 18:17 Dextrose (D50w Syringe) 25 ml Q15M PRN IV DECREASED GLUCOSE Last administered o n 02/14/19at 17:23; Admin Dose 25 ML; Start 01/17/19 at 18:17 Dextrose (D50w Syringe) 50 ml Q15M PRN IV DECREASED GLUCOSE; Start 01/17/19 at 18:17 Glucagon (Glucagen) 1 mg Q15M PRN IM DECREASED GLUCOSE Last administered on 02/11/19at 17:55; Admin Dose 1 MG; Start 01/17/19 at 18:17 Glucose (Glutose) 15 gm Q15M PRN BUCCAL DECREASED GLUCOSE; Start 01/17/19 at 18:17 Bisacodyl (Dulcolax Supp) 10 mg DAILY PRN [place] CONSTIPATION; Start 01/17/19 at 18:17 Zinc Acetate/ Diphenhydramine (Benadryl 2% Cr) 1 applic Q6H PRN TOP ITCHING Last administered on 01/26/19at 07:54; Admin Dose 1 APPLIC; Start 01/19/19 at 16:37 IV Flush (NS 10 ml) 10 ml PRN PRN IV IV PROTOCOL; Start 01/20/19 at 14:30 Cyanocobalamin (Vitamin B12 Inj) 1,000 mcg Q7D IM Last administered on 02/17/19at 08:30; Admin Dose 1,000 MCG; Start 02/03/19 at 09:00 Metoprolol Tartrate (Lopressor) 5 mg Q4H PRN IV HR>110 Hold SBP<100; Start 01/26/19 at 14:30 Enoxaparin Sodium (Lovenox) 60 mg DAILY SC Last administered on 02/03/19at 08:06; Admin Dose 60 MG; Start 01/28/19 at 09:00; Status Hold Docusate Sodium (Colace Liquid Cup) 100 mg BID NGT ; Start 01/27/19 at 22:00; Status Hold Terazosin HCl (Hytrin) 10 mg HS NGT Last administered on 02/18/19 22:27; Admin Dose 10 MG; Start 01/28/19 at 21:00 Levothyroxine Sodium (Synthroid) 125 mcg BEFORE BREAKFAST NGT Last administered on 02/19/19 06:06; Admin Dose 125 MCG; Start 01/28/19 at 07:00 Ferrous Sulfate (Feosol Liquid Cup) 300 mg WITH MEALS GTB Last administered on 02/19/19 12:46; Admin Dose 300 MG; Start 01/28/19 at 11:30 Multivitamins (Multivitamin) 30 ml DAILY GTB Last administered on 02/19/19 09:41; Admin Dose 30 ML; Start 01/28/19 at 11:00 Nystatin/ Triamcinolone Acetonide (Mycolog Oint) 1 applic BID TOP Last administered on 02/19/19 10:08; Admin Dose 1 APPLIC; Start 01/28/19 at 22:30 Insulin Aspart (Novolog Insulin Pen) NOVOLOG *MILD* ALGORI... Q4 SC Last administered on 02/19/19 12:55; Admin Dose 3 UNIT; Start 01/29/19 at 05:00 Albuterol/ Ipratropium (Duoneb) 3 ml Q6HWA RESP THERAPY HHN Last administered on 02/19/19 13:25; Admin Dose 3 ML; Start 01/29/19 at 14:00 Epoetin Dae-epbx (RETACRIT(non-esrd)) 40,000 unit Mo@1700 SC Last administered on 02/17/19 17:18; Admin Dose 40,000 UNIT; Start 02/03/19 at 17:00 Eye Lubricant (Refresh Plus) 1 drop QID BOTH EYES Last administered on 02/19/19 12:46; Admin Dose 1 DROP; Start 02/06/19 at 09:00 Eye Lubricant (Akwa Oint) 1 applic HS LEFT EYE Last administered on 02/18/19 20:45; Admin Dose 1 APPLIC; Start 02/06/19 at 21:00 Multi-Ingredient Ointment (Aquaphor Oint 52.5 Gm) 1 applic BID TOP Last administered on 02/19/19 10:07; Admin Dose 1 APPLIC; Start 02/06/19 at 22:40 Lansoprazole (Prevacid) 30 mg BID@0600,1800 NGT Last administered on 02/19/19 05:52; Admin Dose 30 MG; Start 02/07/19 at 18:00 Morphine Sulfate (morphine) 0.25 mg Q4H PRN IV SEVERE PAIN LEVEL 7-10 Last administered on 02/15/19 11:23; Admin Dose 0.25 MG; Start 02/15/19 at 11:00 Metoprolol Tartrate (Lopressor) 12.5 mg BID NGT Last administered on 02/19/19 09:41; Admin Dose 12.5 MG; Start 02/17/19 at 21:00 Insulin Glargine (Lantus) 8 units DAILY@2000 SC Last administered on 02/18/19 21:34; Admin Dose 8 UNITS; Start 02/18/19 at 20:00 Methylprednisolone Sodium Succinate (Solu-Medrol) 40 mg Q12 IV Last administered on 02/19/19 09:40; Admin Dose 40 MG; Start 02/18/19 at 21:00 LUCIAN HARKINS NP February 19, 2019 13:37
--- NOTE | 2019-02-19 13:43 | CONS ---
Assessment/Plan Assessment/Plan Hospital Course (Demo Recall) 88 yo male with multiple medical problems including DM, CRF, RA, PVD and chronic afib on Eliquis who presented to [facility] 01/05/19 with severe normocytic anemia and Hg ~7. 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 # Anemia-normocytic -Hg stable around 7. 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 Elevated Methylmalonic acid level noted -s/p IV iron. will recheck iron panel at this time -continue vitamin b12 weekly as vitamin b12 was low normal and methylmalonic acid was elevated. Continue folate as well. -No evidence of hemolysis at this time. -Transfuse to keep Hgb > 7. 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 -This may be a pseudocyst or a precancerous pancreatic lesion. -It has been growing in size but patient is asymptomatic. EUS with biopsy is recommended and can either be done inpatient or outpatient setting. -The patient at this time is unlikely a candidate for a whipple surgery however. Thank you to Dr. Alatorre for allowing [facility] to participate in the care of this patient. A total of 40 minutes was spent in consultation with this patient and all his questions were answered. Consultation Date/Type/Reason Admit Date/Time Jan 17, 2019 at 15:58 Initial Consult Date 01/18/19 Type of Consult hematology Reason for Consultation anemia Requesting Provider: IVAN AKHTAR MD Date/Time of Note DATE: 02/19/19 TIME: 13:38 24 HR Interval Summary Free Text/Dictation no acute overnight events Exam/Review of Systems Exam Vitals Vital Signs Date Temp Pulse Resp B/P (MAP) Pulse Ox O2 O2 Flow FiO2 Time Delivery Rate 02/19/19 100 50 13:29 02/19/19 71 12:00 02/19/19 97.4 20 114/53 11:55 (73) 02/18/19 High Flow 18:00 Intake and Output 02/18/19 02/18/19 02/19/19 1515:00 23:00 07:00 IntakeIntake Total 1014.5 ml 210 ml 1170 ml OutputOutput Total 125 ml 600 ml BalanceBalance 1014.5 ml 85 ml 570 ml Constitutional: alert, distress Psych: anxiety, confusion, depression Head: normocephalic Eyes: nl conjunctiva ENMT: nl external ears & nose Neck: supple Respiratory: clear to auscultation Cardiovascular: regular rate and rhythm Gastrointestinal: soft Musculoskeletal: nl extremities to inspection Extremities: normal pulses Results Result Diagram: 02/19/19 0613 02/19/19 0613 Results 24hrs Laboratory Tests Test 02/18/19 17:34 02/18/19 20:55 02/19/19 01:34 02/19/19 04:56 Bedside Glucose 213 186 212 203 Test 02/19/19 06:13 02/19/19 07:47 02/19/19 09:39 02/19/19 12:45 White Blood Count 7.4 # Red Blood Count 2.63 L Hemoglobin 7.6 L Hematocrit 25.1 L Mean Corpuscular 95.4 Volume Mean Corpuscular 28.9 L Hemoglobin Mean Corpuscular 30.3 L Hemoglobin Concent Red Cell 19.6 H Distribution Width Platelet Count 92 L Mean Platelet Volume 12.3 H Immature 0.400 Granulocytes % Neutrophils % 88.0 H Lymphocytes % 8.3 L Monocytes % 3.3 Eosinophils % 0.0 Basophils % 0.0 Nucleated Red Blood 2.4 H Cells % Immature 0.030 Granulocytes # Neutrophils # 6.5 Lymphocytes # 0.6 L Monocytes # 0.2 L Eosinophils # 0.0 Basophils # 0.0 Nucleated Red Blood 0.2 H Cells # Sodium Level 145 H Potassium Level 3.6 Chloride Level 110 Carbon Dioxide Level 27 Anion Gap 8 Blood Urea Nitrogen 107 H Creatinine 2.00 H Est Glomerular Filtrat Rate mL/min Glucose Level 185 Calcium Level 7.9 L Phosphorus Level 4.7 Magnesium Level 2.4 Bedside Glucose 231 H 221 H 225 H Medications Medication Current Medications Acetaminophen (Tylenol Tab) 650 mg Q4H PRN PO PAIN Last administered on 01/23 10/12at 21:29; Admin Dose 650 MG; Start 01/17/19 at 18:17 Miscellaneous [facility] This patient ramirez... PRN PRN XX WOUND CARE; Start 01/17/19 at 18:17 Albuterol/ Ipratropium (Duoneb) 3 ml Q2H RESP THERAPY PRN HHN SHORTNESS OF BREATH Last administered on 02/13/19at 05:52; Admin Dose 3 ML; Start 01/17/19 at 18:17 Bisacodyl (Dulcolax) 10 mg BID PRN PO CONSTIPATION; Start 01/17/19 at 18:17; Status Hold Folic Acid (Folic Acid) 1 mg DAILY PO Last administered on 02/19/19at 09:41; Admin Dose 1 MG; Start 01/17/19 at 18:17 Latanoprost (Xalatan) 1 drop HS BOTH EYES Last administered on 02/18/19at 20:43; Admin Dose 1 DROP; Start 01/17/19 at 18:17 Nitroglycerin (Nitroglycerin (Sl Tab) 0.4 Mg) 0.4 tab Q5M PRN SL CHEST PAIN; Start 01/17/19 at 18:17 IV Flush (NS 3 ml) 3 ml PER PROTOCOL IV ; Start 01/17/19 at 18:17 Glucose (Glutose) 15 gm Q15M PRN PO DECREASED GLUCOSE; Start 01/17/19 at 18:17 Glucose (Glutose) 22.5 gm Q15M PRN PO DECREASED GLUCOSE; Start 01/17/19 at 18:17 Dextrose (D50w Syringe) 25 ml Q15M PRN IV DECREASED GLUCOSE Last administered on 02/14/19at 17:23; Admin Dose 25 ML; Start 01/17/19 at 18:17 Dextrose (D50w Syringe) 50 ml Q15M PRN IV DECREASED GLUCOSE; Start 01/17/19 at 18:17 Glucagon (Glucagen) 1 mg Q15M PRN IM DECREASED GLUCOSE Last administered on 02/11/19at 17:55; Admin Dose 1 MG; Start 01/17/19 at 18:17 Glucose (Glutose) 15 gm Q15M PRN BUCCAL DECREASED GLUCOSE; Start 01/17/19 at 18:17 Bisacodyl (Dulcolax Supp) 10 mg DAILY PRN [place] CONSTIPATION; Start 01/17/19 at 18:17 Zinc Acetate/ Diphenhydramine (Benadryl 2% Cr) 1 applic Q6H PRN TOP ITCHING Last administered on 01/26/19 07:54; Admin Dose 1 APPLIC; Start 01/19/19 at 16:3 7 IV Flush (NS 10 ml) 10 ml PRN PRN IV IV PROTOCOL; Start 01/20/19 at 14:30 Cyanocobalamin (Vitamin B12 Inj) 1,000 mcg Q7D IM Last administered on 02/17/19 08:30; Admin Dose 1,000 MCG; Start 02/03/19 at 09:00 Metoprolol Tartrate (Lopressor) 5 mg Q4H PRN IV HR>110 Hold SBP<100; Start 01/26/19 at 14:30 Enoxaparin Sodium (Lovenox) 60 mg DAILY SC Last administered on 02/03/19 08:06; Admin Dose 60 MG; Start 01/28/19 at 09:00; Status Hold Docusate Sodium (Colace Liquid Cup) 100 mg BID NGT ; Start 01/27/19 at 22:00; Status Hold Terazosin HCl (Hytrin) 10 mg HS NGT Last administered on 02/18/19 22:27; Admin Dose 10 MG; Start 01/28/19 at 21:00 Levothyroxine Sodium (Synthroid) 125 mcg BEFORE BREAKFAST NGT Last administered on 02/19/19 06:06; Admin Dose 125 MCG; Start 01/28/19 at 07:00 Ferrous Sulfate (Feosol Liquid Cup) 300 mg WITH MEALS GTB Last administered on 02/19/19 12:46; Admin Dose 300 MG; Start 01/28/19 at 11:30 Multivitamins (Multivitamin) 30 ml DAILY GTB Last administered on 02/19/19 09:41; Admin Dose 30 ML; Start 01/28/19 at 11:00 Nystatin/ Triamcinolone Acetonide (Mycolog Oint) 1 applic BID TOP Last administered on 02/19/19 10:08; Admin Dose 1 APPLIC; Start 01/28/19 at 22:30 Insulin Aspart (Novolog Insulin Pen) NOVOLOG *MILD* ALGORI... Q4 SC Last administered on 02/19/19 12:55; Admin Dose 3 UNIT; Start 01/29/19 at 05:00 Albuterol/ Ipratropium (Duoneb) 3 ml Q6HWA RESP THERAPY HHN Last administered on 02/19/19 13:25; Admin Dose 3 ML; Start 01/29/19 at 14:00 Epoetin Dae-epbx (RETACRIT(non-esrd)) 40,000 unit Mo@1700 SC Last administered on 02/17/19 17:18; Admin Dose 40,000 UNIT; Start 02/03/19 at 17:00 Eye Lubricant (Refresh Plus) 1 drop QID BOTH EYES Last administered on 02/19/19 12:46; Admin Dose 1 DROP; Start 02/06/19 at 09:00 Eye Lubricant (Akwa Oint) 1 applic HS LEFT EYE Last administered on 02/18/19 20:45; Admin Dose 1 APPLIC; Start 02/06/19 at 21:00 Multi-Ingredient Ointment (Aquaphor Oint 52.5 Gm) 1 applic BID TOP Last administered on 02/19/19 10:07; Admin Dose 1 APPLIC; Start 02/06/19 at 22:40 Lansoprazole (Prevacid) 30 mg BID@0600,1800 NGT Last administered on 02/19/19 05:52; Admin Dose 30 MG; Start 02/07/19 at 18:00 Morphine Sulfate (morphine) 0.25 mg Q4H PRN IV SEVERE PAIN LEVEL 7-10 Last administered on 02/15/19 11:23; Admin Dose 0.25 MG; Start 02/15/19 at 11:00 Metoprolol Tartrate (Lopressor) 12.5 mg BID NGT Last administered on 02/19/19 09:41; Admin Dose 12.5 MG; Start 02/17/19 at 21:00 Insulin Glargine (Lantus) 8 units DAILY@2000 SC Last administered on 02/18/19 21:34; Admin Dose 8 UNITS; Start 02/18/19 at 20:00 Methylprednisolone Sodium Succinate (Solu-Medrol) 40 mg Q12 IV Last administered on 02/19/19 09:40; Admin Dose 40 MG; Start 02/18/19 at 21:00 OREN MARSH M.D. February 19, 2019 13:43
[2019-02-19] MEDS ORDERED: LIDOCAINE 1% (MPF) 5 ML VIAL SC ONE (16:00)
--- NOTE | 2019-02-19 17:01 | CONS ---
Assessment/Plan Assessment/Plan Assessment/Plan (Daily) Assessment/Plan Hospital Course (Demo Recall) 88 yo male presents from [facility] for SOB and febrile 1. Severe anemia likely due to chronic disease, last work up while admitted to [facility] about a week ago was neg for GI bleeding, including EGD/colon which was done -s/p EGD and colonoscopy by Dr Verdin 01/09/19 which didn't find an obvious GI etiology to explain anemia. AVM or a small lesion could be missed due to poor prep. Pt likely needs capsule endoscopy -Neg fob, elevate retic, Low iron, tibc, [place] [id number] --pt's FOB had been negative until 02/05 pt had positive FOB 2. Cystic lesion along pancreas body - 4.3 cm cystic lesion along the pancreas body, enlarged since 10/10/2012 (previously 2.4 cm). 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 -CEA wnl 3. Severe gastritis 4. Hemorrhoids 5. Hital hernia 6. A fib, -eliquis was stopped 01/06 during previous admission, on ASA 7. COPD 8. HTN 9. Hypothyroidism 10. Bilateral groin cellulitis 11. Rheumatoid arthritis. 12. Diabetes mellitus. 13. Peripheral vascular disease. 14. CHF 15. 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 Sepsis secondary to pneumonia 18. Encephalopathy secondary to sepsis 19. Hypothermia 20. Coagulopathy -INR 1.77 21. Thrombocytopenia -decreasing 22. Positive wound culture -CORYNEBACTERIUM SPECIES Plan: Once pt is stable we will proceed with G-tube placement DNR status Monitor HH and replace as needed Consultation Date/Type/Reason Admit Date/Time Jan 17, 2019 at 15:58 Initial Consult Date 01/18/19 Requesting Provider: IVAN AKHTAR MD Date/Time of Note DATE: 02/19/19 TIME: 16:59 24 HR Interval Summary Subjective hx not possible: pt non-verbal Constitutional: requiring IVF, requiring O2 Exam/Review of Systems Exam Vitals Vital Signs Date Temp Pulse Resp B/P (MAP) Pulse Ox O2 O2 Flow FiO2 Time Delivery Rate 02/19/19 97.5 76 18 118/57 100 15:38 (77) 02/19/19 50 13:35 02/18/19 High Flow 18:00 Intake and Output 02/18/19 02/18/19 02/19/19 1515:00 23:00 07:00 IntakeIntake Total 1014.5 ml 210 ml 1170 ml OutputOutput Total 125 ml 600 ml BalanceBalance 1014.5 ml 85 ml 570 ml Constitutional: non-verbal Psych: confusion Respiratory: diminished breath sounds Gastrointestinal: soft, nl liver, spleen, non-tender Extremities: normal pulses Results Result Diagram: 02/19/19 0613 02/19/1913 Results 24hrs Laboratory Tests Test 02/18/19 17:34 02/18/19 20:55 02/19/19 01:34 02/19/19 04:56 Bedside Glucose 213 186 212 203 Test 02/19/19 06:13 02/19/19 07:47 02/19/19 09:39 02/19/19 12:45 White Blood Count 7.4 # Red Blood Count 2.63 L Hemoglobin 7.6 L Hematocrit 25.1 L Mean Corpuscular 95.4 Volume Mean Corpuscular 28.9 L Hemoglobin Mean Corpuscular 30.3 L Hemoglobin Concent Red Cell 19.6 H Distribution Width Platelet Count 92 L Mean Platelet Volume 12.3 H Immature 0.400 Granulocytes % Neutrophils % 88.0 H Lymphocytes % 8.3 L Monocytes % 3.3 Eosinophils % 0.0 Basophils % 0.0 Nucleated Red Blood 2.4 H Cells % Immature 0.030 Granulocytes # Neutrophils # 6.5 Lymphocytes # 0.6 L Monocytes # 0.2 L Eosinophils # 0.0 Basophils # 0.0 Nucleated Red Blood 0.2 H Cells # Sodium Level 145 H Potassium Level 3.6 Chloride Level 110 Carbon Dioxide Level 27 Anion Gap 8 Blood Urea Nitrogen 107 H Creatinine 2.00 H Est Glomerular Filtrat Rate mL/min Glucose Level 185 Calcium Level 7.9 L Phosphorus Level 4.7 Magnesium Level 2.4 Bedside Glucose 231 H 221 H 225 H Medications Medication Current Medications Acetaminophen (Tylenol Tab) 650 mg Q4H PRN PO PAIN Last administered on 02/11/19at 21:29; Admin Dose 650 MG; Start 01/17/19 at 18:17 Miscellaneous Information (Pending [facility] Order For Wound Care) This patient ramirez... PRN PRN XX WOUND CARE; Start 01/17/19 at 18:17 Albuterol/ Ipratropium (Duoneb) 3 ml Q2H RESP THERAPY PRN HHN SHORTNESS OF BREATH Last administered on 02/13/19at 05:52; Admin Dose 3 ML; Start 01/17/19 at 18:17 Bisacodyl (Dulcolax) 10 mg BID PRN PO CONSTIPATION; Start 01/17/19 at 18:17; Status Hold Folic Acid (Folic Acid) 1 mg DAILY PO Last administered on 02/19/19at 09:41; Admin Dose 1 MG; Start 01/17/19 at 18:17 Latanoprost (Xalatan) 1 drop HS BOTH EYES Last administered on 02/18/19at 20:43; Admin Dose 1 DROP; Start 01/17/19 at 18:17 Nitroglycerin (Nitroglycerin (Sl Tab) 0.4 Mg) 0.4 tab Q5M PRN SL CHEST PAIN; Start 01/17/19 at 18:17 IV Flush (NS 3 ml) 3 ml PER PROTOCOL IV ; Start 01/17/19 at 18:17 Glucose (Glutose) 15 gm Q15M PRN PO DECREASED GLUCOSE; Start 01/17/19 at 18:17 Glucose (Glutose) 22.5 gm Q15M PRN PO DECREASED GLUCOSE; Start 01/17/19 at 18:17 Dextrose (D50w Syringe) 25 ml Q15M PRN IV DECREASED GLUCOSE Last administered on 02/14/19at 17:23; Admin Dose 25 ML; Start 01/17/19 at 18:17 Dextrose (D50w Syringe) 50 ml Q15M PRN IV DECREASED GLUCOSE; Start 01/17/19 at 18:17 Glucagon (Glucagen) 1 mg Q15M PRN IM DECREASED GLUCOSE Last administered on 02/11/19at 17:55; Admin Dose 1 MG; Start 01/17/19 at 18:17 Glucose (Glutose) 15 gm Q15M PRN BUCCAL DECREASED GLUCOSE; Start 01/17/19 at 18:17 Bisacodyl (Dulcolax Supp) 10 mg DAILY PRN [place] CONSTIPATION; Start 01/17/19 at 18:17 Zinc Acetate/ Diphenhydramine (Benadryl 2% Cr) 1 applic Q6H PRN TOP ITCHING Last administered on 01/26/19at 07:54; Admin Dose 1 APPLIC; Start 01/19/19 at 16:37 IV Flush (NS 10 ml) 10 ml PRN PRN IV IV PROTOCOL; Start 01/20/19 at 14:30 Cyanocobalamin (Vitamin B12 Inj) 1,000 mcg Q7D IM Last administered on 01/23 08:30; Admin Dose 1,000 MCG; Start 02/03/19 at 09:00 Metoprolol Tartrate (Lopressor) 5 mg Q4H PRN IV HR>110 Hold SBP<100; Start 01/26/19 at 14:30 Enoxaparin Sodium (Lovenox) 60 mg DAILY SC Last administered on 02/03/19 08:06; Admin Dose 60 MG; Start 01/28/19 at 09:00; Status Hold Docusate Sodium (Colace Liquid Cup) 100 mg BID NGT ; Start 01/27/19 at 22:00; Status Hold Terazosin HCl (Hytrin) 10 mg HS NGT Last administered on 02/18/19 22:27; Admin Dose 10 MG; Start 01/28/19 at 21:00 Levothyroxine Sodium (Synthroid) 125 mcg BEFORE BREAKFAST NGT Last administered on 02/19/19 06:06; Admin Dose 125 MCG; Start 01/28/19 at 07:00 Ferrous Sulfate (Feosol Liquid Cup) 300 mg WITH MEALS GTB Last administered on 02/19/19 12:46; Admin Dose 300 MG; Start 01/28/19 at 11:30 Multivitamins (Multivitamin) 30 ml DAILY GTB Last administered on 02/19/19 09:41; Admin Dose 30 ML; Start 01/28/19 at 11:00 Nystatin/ Triamcinolone Acetonide (Mycolog Oint) 1 applic BID TOP Last administered on 02/19/19 10:08; Admin Dose 1 APPLIC; Start 01/28/19 at 22:30 Insulin Aspart (Novolog Insulin Pen) NOVOLOG *MILD* ALGORI... Q4 SC Last administered on 02/19/19 12:55; Admin Dose 3 UNIT; Start 01/29/19 at 05:00 Albuterol/ Ipratropium (Duoneb) 3 ml Q6HWA RESP THERAPY HHN Last administered on 02/19/19 13:25; Admin Dose 3 ML; Start 01/29/19 at 14:00 Epoetin Dae-epbx (RETACRIT(non-esrd)) 40,000 unit Mo@1700 SC Last administered on 02/17/19 17:18; Admin Dose 40,000 UNIT; Start 02/03/19 at 17:00 Eye Lubricant (Refresh Plus) 1 drop QID BOTH EYES Last administered on 02/19/19 12:46; Admin Dose 1 DROP; Start 02/06/19 at 09:00 Eye Lubricant (Akwa Oint) 1 applic HS LEFT EYE Last administered on 02/18/19 20:45; Admin Dose 1 APPLIC; Start 02/06/19 at 21:00 Multi-Ingredient Ointment (Aquaphor Oint 52.5 Gm) 1 applic BID TOP Last administered on 02/19/19 10:07; Admin Dose 1 APPLIC; Start 02/06/19 at 22:40 Morphine Sulfate (morphine) 0.25 mg Q4H PRN IV SEVERE PAIN LEVEL 7-10 Last administered on 02/15/19 11:23; Admin Dose 0.25 MG; Start 02/15/19 at 11:00 Metoprolol Tartrate (Lopressor) 12.5 mg BID NGT Last administered on 02/19/19 09:41; Admin Dose 12.5 MG; Start 02/17/19 at 21:00 Insulin Glargine (Lantus) 8 units DAILY@2000 SC Last administered on 02/18/19 21:34; Admin Dose 8 UNITS; Start 02/18/19 at 20:00 Methylprednisolone Sodium Succinate (Solu-Medrol) 40 mg Q12 IV Last administe red on 02/19/19 09:40; Admin Dose 40 MG; Start 02/18/19 at 21:00 Pantoprazole (Protonix Iv) 40 mg BID@06,18 IV ; Start 02/19/19 at 18:00 MICHELLE VERDIN MD February 19, 2019 17:01
[2019-02-19] MEDS: PANTOPRAZOLE 40 MG INJ IV SCH (17:35)
[2019-02-19] MEDS: LATANOPROST 0.005% 2.5 ML OPH BOTH EYES SCH (21:09)
[2019-02-19] MEDS: TERAZOSIN 5 MG CAP NGT SCH (21:10)
[2019-02-19] MEDS: OCULAR LUBRICANT 3.5 GM OPH OINT LEFT EYE SCH (21:10)
[2019-02-19] MEDS: INSULIN GLARGINE [LANTus] (100 UNITS/ML) SYG SC SCH (21:14)
[2019-02-20] VITALS (12 sets, daily range): BP systolic 118–153; BP diastolic 54–67; PULSE 69–86; RESP 20
[2019-02-20] MEDS: INSULIN ASPART [NOVOLOG] 3 ML PEN SC SCH ×6 (01:17→20:57)
[2019-02-20] MEDS: LEVOTHYROXINE 125 MCG TAB NGT SCH (06:17)
[2019-02-20] MEDS: PANTOPRAZOLE 40 MG INJ IV SCH ×2 (06:56→18:10)
[2019-02-20] MEDS: FERROUS SULFATE 60 MG/ML 5ML CUP GTB SCH ×3 (08:30→16:10)
[2019-02-20] MEDS: MULTIVITAMINS 30 ML CUP GTB SCH (08:30)
[2019-02-20] MEDS: FOLIC ACID 1 MG TAB PO SCH (08:30)
[2019-02-20] MEDS: METHYLPREDNISOLONE 40 MG INJ IV SCH (08:30)
[2019-02-20] MEDS: CARBOXYMETHYLCELLULOSE 0.5% 0.4 ML OPH BOTH EYES SCH ×4 (08:30→21:00)
[2019-02-20] MEDS: METOPROLOL 25 MG TAB NGT SCH ×2 (08:31→20:54)
[2019-02-20] MEDS: AQUAPHOR 52.5 GM OINT TOP SCH ×2 (08:33→20:52)
[2019-02-20] MEDS: BALSAM PERU/CASTOR OIL 60 GM TUBE TOP SCH ×2 (08:34→20:51)
[2019-02-20] MEDS: NYSTATIN/TRIAMCINOLONE 15 GM OINT TOP SCH ×2 (08:34→20:53)
[2019-02-20] MEDS: ALBUTEROL/IPRATROPIUM (NEB) 3 ML AMP HHN SCH ×3 (08:48→20:03)
--- NOTE | 2019-02-20 09:01 | CONS ---
Assessment/Plan Assessment/Plan Hospital Course (Demo Recall) 88 yo male with multiple medical problems including DM, CRF, RA, PVD and chronic afib on Eliquis who presented to [facility] 01/05/19 with severe normocytic anemia and Hg ~7. 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 # Anemia-normocytic -Hg stable around 7. 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 Elevated Methylmalonic acid level noted -s/p IV iron. will recheck iron panel at this time -continue vitamin b12 weekly as vitamin b12 was low normal and methylmalonic acid was elevated. Continue folate as well. -No evidence of hemolysis at this time. -Transfuse to keep Hgb > 7. 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 -This may be a pseudocyst or a precancerous pancreatic lesion. -It has been growing in size but patient is asymptomatic. EUS with biopsy is recommended and can either be done inpatient or outpatient setting. -The patient at this time is unlikely a candidate for a whipple surgery however. Thank you to Dr. Alatorre for allowing [facility] to participate in the care of this patient. A total of 40 minutes was spent in consultation with this patient and all his questions were answered. Consultation Date/Type/Reason Admit Date/Time Jan 17, 2019 at 15:58 Initial Consult Date 01/18/19 Type of Consult hematology Reason for Consultation anemia Requesting Provider: IVAN AKHTAR MD Date/Time of Note DATE: 02/20/19 TIME: 09:00 24 HR Interval Summary Free Text/Dictation no acute overnight events Exam/Review of Systems Exam Vitals Vital Signs Date Temp Pulse Resp B/P (MAP) Pulse Ox O2 O2 Flow FiO2 Time Delivery Rate 02/20/19 96 40 08:50 02/20/19 81 08:49 02/20/19 97.4 78 128/58 07:45 (81) 02/20/19 High Flow 03:41 Intake and Output 02/19/19 02/19/19 02/20/19 1515:00 23:00 07:00 IntakeIntake Total 1040 ml 480 ml 960 ml OutputOutput Total 450 ml 700 ml BalanceBalance 1040 ml 30 ml 260 ml Constitutional: distress, frail Psych: confusion Head: normocephalic Eyes: nl conjunctiva ENMT: nl external ears & nose Neck: supple Respiratory: clear to auscultation Cardiovascular: regular rate and rhythm Gastrointestinal: soft Musculoskeletal: nl extremities to inspection Results Result Diagram: 02/20/19 0804 02/19/19 0613 Results 24hrs Laboratory Tests Test 02/19/19 09:39 02/19/19 12:45 02/19/19 17:35 02/19/19 21:03 Bedside Glucose 221 H 225 H 223 H 190 Test 02/20/19 01:06 02/20/19 05:45 02/20/19 08:00 02/20/19 08:04 Bedside Glucose 213 211 214 White Blood Count 7.2 Red Blood Count 2.75 L Hemoglobin 7.7 L Hematocrit 26.2 L Mean Corpuscular 95.3 Volume Mean Corpuscular 28.0 L Hemoglobin Mean Corpuscular 29.4 L Hemoglobin Concent Red Cell 19.5 H Distribution Width Platelet Count 109 L Mean Platelet Volume 12.6 H Immature 0.700 H Granulocytes % Neutrophils % 82.8 H Lymphocytes % 11.4 L Monocytes % 5.1 Eosinophils % 0.0 Basophils % 0.0 Nucleated Red Blood 1.8 H Cells % Immature 0.050 H Granulocytes # Neutrophils # 6.0 Lymphocytes # 0.8 Monocytes # 0.4 Eosinophils # 0.0 Basophils # 0.0 Nucleated Red Blood 0.1 H Cells # Medications Medication Current Medications Acetaminophen (Tylenol Tab) 650 mg Q4H PRN PO PAIN Last administered on 02/11/19at 21:29; Admin Dose 650 MG; Start 01/17/19 at 18:17 Miscellaneous Information (Pending Santyl Order For Wound Care) This patient ramirez... PRN PRN XX WOUND CARE; Start 01/17/19 at 18:17 Albuterol/ Ipratropium (Duoneb) 3 ml Q2H RESP THERAPY PRN HHN SHORTNESS OF B REATH Last administered on 02/13/19at 05:52; Admin Dose 3 ML; Start 01/17/19 at 18:17 Bisacodyl (Dulcolax) 10 mg BID PRN PO CONSTIPATION; Start 01/17/19 at 18:17; Status Hold Folic Acid (Folic Acid) 1 mg DAILY PO Last administered on 02/20/19at 08:30; Admin Dose 1 MG; Start 01/17/19 at 18:17 Latanoprost (Xalatan) 1 drop HS BOTH EYES Last administered on 02/19/19at 21:09; Admin Dose 1 DROP; Start 01/17/19 at 18:17 Nitroglycerin (Nitroglycerin (Sl Tab) 0.4 Mg) 0.4 tab Q5M PRN SL CHEST PAIN; Start 01/17/19 at 18:17 IV Flush (NS 3 ml) 3 ml PER PROTOCOL IV ; Start 01/17/19 at 18:17 Glucose (Glutose) 15 gm Q15M PRN PO DECREASED GLUCOSE; Start 01/17/19 at 18:17 Glucose (Glutose) 22.5 gm Q15M PRN PO DECREASED GLUCOSE; Start 01/17/19 at 18:17 Dextrose (D50w Syringe) 25 ml Q15M PRN IV DECREASED GLUCOSE Last administered on 02/14/19at 17:23; Admin Dose 25 ML; Start 01/17/19 at 18:17 Dextrose (D50w Syringe) 50 ml Q15M PRN IV DECREASED GLUCOSE; Start 01/17/19 at 18:17 Glucagon (Glucagen) 1 mg Q15M PRN IM DECREASED GLUCOSE Last administered on 02/11/19at 17:55; Admin Dose 1 MG; Start 01/17/19 at 18:17 Glucose (Glutose) 15 gm Q15M PRN BUCCAL DECREASED GLUCOSE; Start 01/17/19 at 18:17 Bisacodyl (Dulcolax Supp) 10 mg DAILY PRN [place] CONSTIPATION; Start 01/17/19 at 18:17 Zinc Acetate/ Diphenhydramine (Benadryl 2% Cr) 1 applic Q6H PRN TOP ITCHING Last administered on 01/26/19at 07:54; Admin Dose 1 APPLIC; Start 01/19/19 at 16:37 IV Flush (NS 10 ml) 10 ml PRN PRN IV IV PROTOCOL; Start 01/20/19 at 14:30 Cyanocobalamin (Vitamin B12 Inj) 1,000 mcg Q7D IM Last administered on 02/17/19 08:30; Admin Dose 1,000 MCG; Start 02/03/19 at 09:00 Metoprolol Tartrate (Lopressor) 5 mg Q4H PRN IV HR>110 Hold SBP<100; Start 01/26/19 at 14:30 Enoxaparin Sodium (Lovenox) 60 mg DAILY SC Last administered on 02/03/19 08:06; Admin Dose 60 MG; Start 01/28/19 at 09:00; Status Hold Docusate Sodium (Colace Liquid Cup) 100 mg BID NGT ; Start 01/27/19 at 22:00; Status Hold Terazosin HCl (Hytrin) 10 mg HS NGT Last administered on 02/19/19 21:10; Admin Dose 10 MG; Start 01/28/19 at 21:00 Levothyroxine Sodium (Synthroid) 125 mcg BEFORE BREAKFAST NGT Last administered on 02/20/19 06:17; Admin Dose 125 MCG; Start 01/28/19 at 07:00 Ferrous Sulfate (Feosol Liquid Cup) 300 mg WITH MEALS GTB Last administered on 02/20/19 08:30; Admin Dose 300 MG; Start 01/28/19 at 11:30 Multivitamins (Multivitamin) 30 ml DAILY GTB Last administered on 02/20/19 08:30; Admin Dose 30 ML; Start 01/28/19 at 11:00 Nystatin/ Triamcinolone Acetonide (Mycolog Oint) 1 applic BID TOP Last administered on 02/20/19 08:34; Admin Dose 1 APPLIC; Start 01/28/19 at 22:30 Insulin Aspart (Novolog Insulin Pen) NOVOLOG *MILD* ALGORI... Q4 SC Last administered on 02/20/19 08:32; Admin Dose 2 UNIT; Start 01/29/19 at 05:00 Albuterol/ Ipratropium (Duoneb) 3 ml Q6HWA RESP THERAPY HHN Last administered on 02/20/19 08:48; Admin Dose 3 ML; Start 01/29/19 at 14:00 Epoetin Dae-epbx (RETACRIT(non-esrd)) 40,000 unit Mo@1700 SC Last administered on 02/17/19 17:18; Admin Dose 40,000 UNIT; Start 02/03/19 at 17:00 Eye Lubricant (Refresh Plus) 1 drop QID BOTH EYES Last administered on 02/20/19 08:30; Admin Dose 1 DROP; Start 02/06/19 at 09:00 Eye Lubricant (Akwa Oint) 1 applic HS LEFT EYE Last administered on 02/19/19 21:10; Admin Dose 1 APPLIC; Start 02/06/19 at 21:00 Multi-Ingredient Ointment (Aquaphor Oint 52.5 Gm) 1 applic BID TOP Last administered on 02/20/19 08:33; Admin Dose 1 APPLIC; Start 02/06/19 at 22:40 Morphine Sulfate (morphine) 0.25 mg Q4H PRN IV SEVERE PAIN LEVEL 7-10 Last administered on 02/15/19 11:23; Admin Dose 0.25 MG; Start 02/15/19 at 11:00 Metoprolol Tartrate (Lopressor) 12.5 mg BID NGT Last administered on 02/20/19 08:31; Admin Dose 12.5 MG; Start 02/17/19 at 21:00 Insulin Glargine (Lantus) 8 units DAILY@2000 SC Last administered on 02/19/19 21:14; Admin Dose 8 UNITS; Start 02/18/19 at 20:00 Methylprednisolone Sodium Succinate (Solu-Medrol) 40 mg Q12 IV Last administered on 02/20/19 08:30; Admin Dose 40 MG; Start 02/18/19 at 21:00 Pantoprazole (Protonix Iv) 40 mg BID@06,18 IV Last administered on 02/20/19 06:56; Admin Dose 40 MG; Start 02/19/19 at 18:00 OREN MARSH M.D. February 20, 2019 09:01
--- NOTE | 2019-02-20 11:44 | CONS ---
Consult Date/Type/Reason Admit Date/Time Jan 17, 2019 at 15:58 Initial Consult Date 01/18/19 Type of Consult Pulmonary Requesting Provider: IVAN AKHTAR MD Date/Time of Note DATE: 02/20/19 TIME: 11:43 Subjective No significant changes. Objective Vital Signs Date Temp Pulse Resp B/P (MAP) Pulse Ox O2 O2 Flow FiO2 Time Delivery Rate 02/20/19 92 45 11:25 02/20/19 97.9 72 20 131/58 11:12 (82) 02/20/19 High Flow 03:41 Intake and Output 02/19/19 02/19/19 02/20/19 1515:00 23:00 07:00 IntakeIntake Total 1040 ml 480 ml 960 ml OutputOutput Total 450 ml 700 ml BalanceBalance 1040 ml 30 ml 260 ml Exam GENERAL: Elderly appearing gentleman on nasal cannula O2 nasogastric tube in place VITAL SIGNS: per chart NECK: Supple. No JVD or lymphadenopathy. CARDIAC EXAM: S1, S2. Early systolic ejection murmur. CHEST: Diminished air entry bilaterally ABDOMEN: Soft, nontender. No guarding or rebound. EXTREMITIES: No cyanosis, clubbing or edema. NEUROLOGIC: Generalized weakness. Vent Setting Ventilator Support Mode: AC Fraction of Inspired Oxygen pe: 45 Positive End Expiratory Pressu: 5.0 Results/Medications Result Diagram: 02/20/19 0804 02/20/19 0804 Results 24 hrs Laboratory Tests Test 02/19/19 12:45 02/19/19 17:35 02/19/19 21:03 02/20/19 01:06 Bedside Glucose 225 H 223 H 190 213 Test 02/20/19 05:45 02/20/19 08:00 02/20/19 08:04 Bedside Glucose 211 214 White Blood Count 7.2 Red Blood Count 2.75 L Hemoglobin 7.7 L Hematocrit 26.2 L Mean Corpuscular 95.3 Volume Mean Corpuscular 28.0 L Hemoglobin Mean Corpuscular 29.4 L Hemoglobin Concent Red Cell 19.5 H Distribution Width Platelet Count 109 L Mean Platelet Volume 12.6 H Immature 0.700 H Granulocytes % Neutrophils % 82.8 H Lymphocytes % 11.4 L Monocytes % 5.1 Eosinophils % 0.0 Basophils % 0.0 Nucleated Red Blood 1.8 H Cells % Immature 0.050 H Granulocytes # Neutrophils # 6.0 Lymphocytes # 0.8 Monocytes # 0.4 Eosinophils # 0.0 Basophils # 0.0 Nucleated Red Blood 0.1 H Cells # Sodium Level 146 H Potassium Level 3.3 L Chloride Level 111 H Carbon Dioxide Level 28 Anion Gap 7 Blood Urea Nitrogen 113 H Creatinine 2.02 H Est Glomerular Filtrat Rate mL/min Glucose Level 189 Calcium Level 7.7 L Phosphorus Level 4.6 Magnesium Level 2.3 Medications Current Medications Acetaminophen (Tylenol Tab) 650 mg Q4H PRN PO PAIN Last administered on 02/11at 21:29; Admin Dose 650 MG; Start 01/17/19 at 18:17 Miscellaneous Information (Pending [facility] Order For Wound Care) This patient ramirez... PRN PRN XX WOUND CARE; Start 01/17/19 at 18:17 Albuterol/ Ipratropium (Duoneb) 3 ml Q2H RESP THERAPY PRN HHN SHORTNESS OF BREATH Last administered on 02/13/19at 05:52; Admin Dose 3 ML; Start 01/17/19 at 18:17 Bisacodyl (Dulcolax) 10 mg BID PRN PO CONSTIPATION; Start 01/17/19 at 18:17; Status Hold Folic Acid (Folic Acid) 1 mg DAILY PO Last administered on 02/20/19at 08:30; Admin Dose 1 MG; Start 01/17/19 at 18:17 Latanoprost (Xalatan) 1 drop HS BOTH EYES Last administered on 02/19/19at 21:09; Admin Dose 1 DROP; Start 01/17/19 at 18:17 Nitroglycerin (Nitroglycerin (Sl Tab) 0.4 Mg) 0.4 tab Q5M PRN SL CHEST PAIN; Start 01/17/19 at 18:17 IV Flush (NS 3 ml) 3 ml PER PROTOCOL IV ; Start 01/17/19 at 18:17 Glucose (Glutose) 15 gm Q15M PRN PO DECREASED GLUCOSE; Start 01/17/19 at 18:17 Glucose (Glutose) 22.5 gm Q15M PRN PO DECREASED GLUCOSE; Start 01/17/19 at 18:17 Dextrose (D50w Syringe) 25 ml Q15M PRN IV DECREASED GLUCOSE Last administered on 02/14/19at 17:23; Admin Dose 25 ML; Start 01/17/19 at 18:17 Dextrose (D50w Syringe) 50 ml Q15M PRN IV DECREASED GLUCOSE; Start 01/17/19 at 18:17 Glucagon (Glucagen) 1 mg Q15M PRN IM DECREASED GLUCOSE Last administered on 02/11/19at 17:55; Admin Dose 1 MG; Start 01/17/19 at 18:17 Glucose (Glutose) 15 gm Q15M PRN BUCCAL DECREASED GLUCOSE; Start 01/17/19 at 18:17 Bisacodyl (Dulcolax Supp) 10 mg DAILY PRN [place] CONSTIPATION; Start 01/17/19 at 18:17 Zinc Acetate/ Diphenhydramine (Benadryl 2% Cr) 1 applic Q6H PRN TOP ITCHING Last administered on 01/26/19at 07:54; Admin Dose 1 APPLIC; Start 01/19/19 at 16:37 IV Flush (NS 10 ml) 10 ml PRN PRN IV IV PROTOCOL; Start 01/20/19 at 14:30 Cyanocobalamin (Vitamin B12 Inj) 1,000 mcg Q7D IM Last administered on 02/17/19at 08:30; Admin Dose 1,000 MCG; Start 02/03/19 at 09:00 Metoprolol Tartrate (Lopressor) 5 mg Q4H PRN IV HR>110 Hold SBP<100; Start 01/26/19 at 14:30 Enoxaparin Sodium (Lovenox) 60 mg DAILY SC Last administered on 02/03/19at 08:06; Admin Dose 60 MG; Start 01/28/19 at 09:00; Status Hold Docusate Sodium (Colace Liquid Cup) 100 mg BID NGT ; Start 01/27/19 at 22:00; Status Hold Terazosin HCl (Hytrin) 10 mg HS NGT Last administered on 02/19/19at 21:10; Admin Dose 10 MG; Start 01/28/19 at 21:00 Levothyroxine Sodium (Synthroid) 125 mcg BEFORE BREAKFAST NGT Last administered on 02/20/19at 06:17; Admin Dose 125 MCG; Start 01/28/19 at 07:00 Ferrous Sulfate (Feosol Liquid Cup) 300 mg WITH MEALS GTB Last administered on 02/20/19at 08:30; Admin Dose 300 MG; Start 01/28/19 at 11:30 Multivitamins (Multivitamin) 30 ml DAILY GTB Last administered on 02/20/19 08:30; Admin Dose 30 ML; Start 01/28/19 at 11:00 Nystatin/ Triamcinolone Acetonide (Mycolog Oint) 1 applic BID TOP Last administered on 02/20/19 08:34; Admin Dose 1 APPLIC; Start 01/28/19 at 22:30 Insulin Aspart (Novolog Insulin Pen) NOVOLOG *MILD* ALGORI... Q4 SC Last administered on 02/20/19 08:32; Admin Dose 2 UNIT; Start 01/29/19 at 05:00 Albuterol/ Ipratropium (Duoneb) 3 ml Q6HWA RESP THERAPY HHN Last administered on 02/20/19 08:48; Admin Dose 3 ML; Start 01/29/19 at 14:00 Epoetin Dae-epbx (RETACRIT(non-esrd)) 40,000 unit Mo@1700 SC Last administered on 02/17/19 17:18; Admin Dose 40,000 UNIT; Start 02/03/19 at 17:00 Eye Lubricant (Refresh Plus) 1 drop QID BOTH EYES Last administered on 02/20/19 08:30; Admin Dose 1 DROP; Start 02/06/19 at 09:00 Eye Lubricant (Akwa Oint) 1 applic HS LEFT EYE Last administered on 02/19/19 21:10; Admin Dose 1 APPLIC; Start 02/06/19 at 21:00 Multi-Ingredient Ointment (Aquaphor Oint 52.5 Gm) 1 applic BID TOP Last administered on 02/20/19 08:33; Admin Dose 1 APPLIC; Start 02/06/19 at 22:40 Morphine Sulfate (morphine) 0.25 mg Q4H PRN IV SEVERE PAIN LEVEL 7-10 Last administered on 02/15/19 11:23; Admin Dose 0.25 MG; Start 02/15/19 at 11:00 Metoprolol Tartrate (Lopressor) 12.5 mg BID NGT Last administered on 02/20/19 08:31; Admin Dose 12.5 MG; Start 02/17/19 at 21:00 Insulin Glargine (Lantus) 8 units DAILY@2000 SC Last administered on 5/29/19at 21:14; Admin Dose 8 UNITS; Start 02/18/19 at 20:00 Methylprednisolone Sodium Succinate (Solu-Medrol) 40 mg Q12 IV Last administered on 02/20/19at 08:30; Admin Dose 40 MG; Start 02/18/19 at 21:00 Pantoprazole (Protonix Iv) 40 mg BID@06,18 IV Last administered on 02/20/19at 06:56; Admin Dose 40 MG; Start 02/19/19 at 18:00 Assessment/Plan Hospital Course (Demo Recall) IMP: 1. s/p Acute hypoxemic respiratory failure likely secondary to combination of volume overload and pneumonia, now on high flow O2. 2. Encephalopathy underlying dementia versus toxic metabolic, appears to be slowly improving possibly secondary to elevated sodium. 3. Valvular heart disease 4. Severe dysphagia 5. Status post septic shock likely secondary to above, persistent leukocytosis. 6. Anemia, no active GI bleeding 7. Skin diffuse excoriating skin lesion unclear etiology not consistent with history of "red man" syndrome. or pemphigus. Likely drug reaction. 8. Anemia 9. Status post septic shock RECS: 1. Continue high flow O2 2. Continue broad-spectrum antibiotics 3. Infectious work-up as per ID 4. Monitor H&H 5. Thoracentesis right pleural effusion, tentatively scheduled for today. Overall prognosis extremely poor. Palliative care recommendations. DIANA MCRAE MD, [facility] February 20, 2019 11:44
--- NOTE | 2019-02-20 12:10 | CONS ---
Assessment/Plan Assessment/Plan Hospital Course 88 yo M with multiple comorbidities who initially presented for evaluation of hiccups. He was noted to become acutely altered... for which neurology is consulted. He has been transferred to the ICU on several occasions due to ams in the context of respiratory distress and ? seizures.. On 02/14, he was transferred to the ICU for hypotension. The clinical picture suggests an acute toxic-metabolic encephalopathy.. Meningoencephalitis is, though, not entirely excluded. MRI brain is without acute ischemia, though notable for chronic infarcts. EEG was without ongoing epileptiform activity LP for CSF valuation was declined by medical decision makers. P: OK to Cont Keppra 500 BID for now Ativan IV PRN prolonged seizure (> 5 min) Agree w/ ASA/Lipitor daily pending the above Limit sedating medications where possible Cont other medical management per primary Will follow Consultation Date/Type/Reason Admit Date/Time Jan 17, 2019 at 15:58 Type of Consult Neurology Reason for Consultation ams; eval for stroke Requesting Provider: IVAN AKHTAR MD Date/Time of Note DATE: 02/20/19 TIME: 12:10 24 HR Interval Summary Free Text/Dictation Continues acute care Exam Vital Signs Vitals Vital Signs Date Temp Pulse Resp B/P (MAP) Pulse Ox O2 O2 Flow FiO2 Time Delivery Rate 02/20/19 92 45 11:25 02/20/19 97.9 72 20 131/58 11:12 (82) 02/20/19 High Flow 03:41 Intake and Output 02/19/19 02/19/19 02/20/19 1515:00 23:00 07:00 IntakeIntake Total 1040 ml 480 ml 960 ml OutputOutput Total 450 ml 700 ml BalanceBalance 1040 ml 30 ml 260 ml Exam PE: Gen Appearance: No Apparent Distress HEENT: Normocephalic; on hi flow nasal cannula Cardiovascular: Regular rate Abdomen: Soft Extremities: Dry. NE: The patient was obtunded and nonverbal. Opens eyes briefly to voice. Cranial nerve examination was limited by mental status. Pupils were equal and reactive to light. There was no afferent pupillary defect. Funduscopic ex amination was limited. Face was grossly symmetric. Tone was normal. Muscle bulk was normal. I did not see fasciculations. The p atient withdrew his extremities to noxious stimuli. Coordination and gait testing was limited by mental status. Arm and leg reflexes were within normal limits and symmetric. Gray's sign was absent. Plantar responses were flexor. NEGRA CORONA NP February 20, 2019 12:10
--- NOTE | 2019-02-20 12:24 | CONS ---
Assessment/Plan Assessment/Plan Assessment/Plan (Daily) Hospital Course (Demo Recall) 88 [facility] for [facility]B and febrile 1. Severe anemia likely due to chronic disease, last work up while admitted to [facility] about a week ago was neg for GI bleeding, including EGD/colon which was done -s/p EGD and colonoscopy by Dr Verdin 01/09/19 which didn't find an obvious GI etiology to explain anemia. AVM or a small lesion could be missed due to poor prep. Pt likely needs capsule endoscopy -Neg fob, elevate retic, Low iron, tibc, and sat, ferritin [place] [id number] --pt's FOB had been negative until 02/05 pt had positive FOB 2. Cystic lesion along pancreas body - 4.3 cm cystic lesion along the pancreas body, enlarged since 10/10/2012 (previously 2.4 cm). 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 -CEA wnl 3. Severe gastritis 4. Hemorrhoids 5. Hital hernia 6. A fib, -eliquis was stopped 01/06 during previous admission, on ASA 7. COPD 8. HTN 9. Hypothyroidism 10. Bilateral groin cellulitis 11. Rheumatoid arthritis. 12. Diabetes mellitus. 13. Peripheral vascular disease. 14. CHF 15. 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 Sepsis secondary to pneumonia 18. Encephalopathy secondary to sepsis #19 large right pleural effusion Plan: Once pt is stable we will proceed with G-tube placement Patient is scheduled for thoracocentesis today hopefully his oxygenation improves after that Consultation Date/Type/Reason Admit Date/Time Jan 17, 2019 at 15:58 Initial Consult Date 01/18/19 Requesting Provider: IVAN AKHTAR MD Date/Time of Note DATE: 02/20/19 TIME: 12:23 24 HR Interval Summary Constitutional: disoriented Exam/Review of Systems Exam Vitals Vital Signs Date Temp Pulse Resp B/P (MAP) Pulse Ox O2 O2 Flow FiO2 Time Delivery Rate 02/20/19 92 45 11:25 02/20/19 97.9 72 20 131/58 11:12 (82) 02/20/19 High Flow 03:41 Intake and Output 02/19/19 02/19/19 02/20/19 1515:00 23:00 07:00 IntakeIntake Total 1040 ml 480 ml 960 ml OutputOutput Total 450 ml 700 ml BalanceBalance 1040 ml 30 ml 260 ml Psych: confusion Respiratory: diminished breath sounds Cardiovascular: regular rate and rhythm, nl pulses Results Result Diagram: 02/20/19 0804 02/20/19 0804 Results 24hrs Laboratory Tests Test 02/19/19 12:45 02/19/19 17:35 02/19/19 21:03 02/20/19 01:06 Bedside Glucose 225 H 223 H 190 213 Test 02/20/19 05:45 02/20/19 08:00 02/20/19 08:04 Bedside Glucose 211 214 White Blood Count 7.2 Red Blood Count 2.75 L Hemoglobin 7.7 L Hematocrit 26.2 L Mean Corpuscular 95.3 Volume Mean Corpuscular 28.0 L Hemoglobin Mean Corpuscular 29.4 L Hemoglobin Concent Red Cell 19.5 H Distribution Width Platelet Count 109 L Mean Platelet Volume 12.6 H Immature 0.700 H Granulocytes % Neutrophils % 82.8 H Lymphocytes % 11.4 L Monocytes % 5.1 Eosinophils % 0.0 Basophils % 0.0 Nucleated Red Blood 1.8 H Cells % Immature 0.050 H Granulocytes # Neutrophils # 6.0 Lymphocytes # 0.8 Monocytes # 0.4 Eosinophils # 0.0 Basophils # 0.0 Nucleated Red Blood 0.1 H Cells # Sodium Level 146 H Potassium Level 3.3 L Chloride Level 111 H Carbon Dioxide Level 28 Anion Gap 7 Blood Urea Nitrogen 113 H Creatinine 2.02 H Est Glomerular Filtrat Rate mL/min Glucose Level 189 Calcium Level 7.7 L Phosphorus Level 4.6 Magnesium Level 2.3 Medications Medication Current Medications Acetaminophen (Tylenol Tab) 650 mg Q4H PRN PO PAIN Last administered on 02/11/19at 21:29; Admin Dose 650 MG; Start 01/17/19 at 18:17 Misc[facility] This patient ramirez... PRN PRN XX WOUND CARE; Start 01/17/19 at 18:17 Albuterol/ Ipratropium (Duoneb) 3 ml Q2H RESP THERAPY PRN HHN SHORTNESS OF BREATH Last administered on 02/13/19at 05:52; Admin Dose 3 ML; Start 01/17/19 at 18:17 Bisacodyl (Dulcolax) 10 mg BID PRN PO CONSTIPATION; Start 01/17/19 at 18:17; Status Hold Folic Acid (Folic Acid) 1 mg DAILY PO Last administered on 02/20/19 08:30; Admin Dose 1 MG; Start 01/17/19 at 18:17 Latanoprost (Xalatan) 1 drop HS BOTH EYES Last administered on 02/19/19at 21:09; Admin Dose 1 DROP; Start 01/17/19 at 18:17 Nitroglycerin (Nitroglycerin (Sl Tab) 0.4 Mg) 0.4 tab Q5M PRN SL CHEST PAIN; Start 01/17/19 at 18:17 IV Flush (NS 3 ml) 3 ml PER PROTOCOL IV ; Start 01/17/19 at 18:17 Glucose (Glutose) 15 gm Q15M PRN PO DECREASED GLUCOSE; Start 01/17/19 at 18:17 Glucose (Glutose) 22.5 gm Q15M PRN PO DECREASED GLUCOSE; Start 01/17/19 at 18:17 Dextrose (D50w Syringe) 25 ml Q15M PRN IV DECREASED GLUCOSE Last administered on 02/14/19at 17:23; Admin Dose 25 ML; Start 01/17/19 at 18:17 Dextrose (D50w Syringe) 50 ml Q15M PRN IV DECREASED GLUCOSE; Start 01/17/19 at 18:17 Glucagon (Glucagen) 1 mg Q15M PRN IM DECREASED GLUCOSE Last administered on 02/11/19at 17:55; Admin Dose 1 MG; Start 01/17/19 at 18:17 Glucose (Glutose) 15 gm Q15M PRN BUCCAL DECREASED GLUCOSE; Start 01/17/19 at 18:17 Bisacodyl (Dulcolax Supp) 10 mg DAILY PRN [place] CONSTIPATION; Start 01/17/19 at 18:17 Zinc Acetate/ Diphenhydramine (Benadryl 2% Cr) 1 applic Q6H PRN TOP ITCHING Last administered on 01/26/19at 07:54; Admin Dose 1 APPLIC; Start 01/19/19 at 16:37 IV Flush (NS 10 ml) 10 ml PRN PRN IV IV PROTOCOL; Start 01/20/19 at 14:30 Cyanocobalamin (Vitamin B12 Inj) 1,000 mcg Q7D IM Last administered on 02/17/19at 08:30; Admin Dose 1,000 MCG; Start 02/03/19 at 09:00 Metoprolol Tartrate (Lopressor) 5 mg Q4H PRN IV HR>110 Hold SBP<100; Start 01/26/19 at 14:30 Enoxaparin Sodium (Lovenox) 60 mg DAILY SC Last administered on 02/03/19 08:06; Admin Dose 60 MG; Start 01/28/19 at 09:00; Status Hold Docusate Sodium (Colace Liquid Cup) 100 mg BID NGT ; Start 01/27/19 at 22:00; Status Hold Terazosin HCl (Hytrin) 10 mg HS NGT Last administered on 02/19/19 21:10; Admin Dose 10 MG; Start 01/28/19 at 21:00 Levothyroxine Sodium (Synthroid) 125 mcg BEFORE BREAKFAST NGT Last administered on 02/20/19 06:17; Admin Dose 125 MCG; Start 01/28/19 at 07:00 Ferrous Sulfate (Feosol Liquid Cup) 300 mg WITH MEALS GTB Last administered on 02/20/19 11:58; Admin Dose 300 MG; Start 01/28/19 at 11:30 Multivitamins (Multivitamin) 30 ml DAILY GTB Last administered on 02/20/19 08:30; Admin Dose 30 ML; Start 01/28/19 at 11:00 Nystatin/ Triamcinolone Acetonide (Mycolog Oint) 1 applic BID TOP Last administered on 02/20/19 08:34; Admin Dose 1 APPLIC; Start 01/28/19 at 22:30 Insulin Aspart (Novolog Insulin Pen) NOVOLOG *MILD* ALGORI... Q4 SC Last administered on 02/20/19 08:32; Admin Dose 2 UNIT; Start 01/29/19 at 05:00 Albuterol/ Ipratropium (Duoneb) 3 ml Q6HWA RESP THERAPY HHN Last administered on 02/20/19 08:48; Admin Dose 3 ML; Start 01/29/19 at 14:00 Epoetin Dae-epbx (RETACRIT(non-esrd)) 40,000 unit Mo@1700 SC Last administered on 02/17/19 17:18; Admin Dose 40,000 UNIT; Start 02/03/19 at 17:00 Eye Lubricant (Refresh Plus) 1 drop QID BOTH EYES Last administered on 02/20/19 08:30; Admin Dose 1 DROP; Start 02/06/19 at 09:00 Eye Lubricant (Akwa Oint) 1 applic HS LEFT EYE Last administered on 02/19/19 21:10; Admin Dose 1 APPLIC; Start 02/06/19 at 21:00 Multi-Ingredient Ointment (Aquaphor Oint 52.5 Gm) 1 applic BID TOP Last administered on 02/20/19 08:33; Admin Dose 1 APPLIC; Start 02/06/19 at 22:40 Morphine Sulfate (morphine) 0.25 mg Q4H PRN IV SEVERE PAIN LEVEL 7-10 Last administered on 02/15/19 11:23; Admin Dose 0.25 MG; Start 02/15/19 at 11:00 Metoprolol Tartrate (Lopressor) 12.5 mg BID NGT Last administered on 02/20/19 08:31; Admin Dose 12.5 MG; Start 02/17/19 at 21:00 Insulin Glargine (Lantus) 8 units DAILY@1999 SC Last administered on 02/19/19 21:14; Admin Dose 8 UNITS; Start 02/18/19 at 20:00 Methylprednisolone Sodium Succinate (Solu-Medrol) 40 mg Q12 IV Last administered on 02/20/19 08:30; Admin Dose 40 MG; Start 02/18/19 at 21:00 Pantoprazole (Protonix Iv) 40 mg BID@06,18 IV Last administered on 02/20/19 06:56; Admin Dose 40 MG; Start 02/19/19 at 18:00 MICHELLE VERDIN MD February 20, 2019 12:24
--- NOTE | 2019-02-20 14:01 | CONS ---
Assessment/Plan Assessment/Plan Hospital Course (Demo Recall) No acute events, comfortable on high flow oxygen Antimicrobials: none Indwelling: Left subclavian triple-lumen catheter, Wade catheter, NG tube Allergy: Penicillin, sulfa Physical examination: Obese well-developed chronically ill-appearing - Armenian man who is lethargic, in no distress. Head atraumatic normocephalic sclera nonicteric. Neck is supple chest rise symmetrical breath sounds diminished bases. Heart: S1-S2. Abdomen obese soft bowel sounds present extremities without cyanosis, bilateral edema Assessment: 1. Sepsis s/p shock 2. Acute hypoxemic respiratory failure, likely ongoing aspiration 2. Acute encephalopathy 3. Seizures 4. Healthcare acquired pneumonia 5. Coronary artery disease/history of CABG 6. Advanced rheumatoid arthritis 5. Chronic atrial fibrillation 6. Diabetes 7. BPH 9. Acute on chronic anemia===> s/p EGD/colonoscopy 01/09/19 10. Status post right epididymitis 11. Pancreatic lesion per CT, unlikely neoplasm per oncology notes 12. 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 Skin lesions, s/p punch bx, pathology consistent with allergic reaction 14. DNR/DNI Plan: Remains unchanged, completed antibiotics, continue present care, repeat cx's prn, overall prognosis poor Consultation Date/Type/Reason Admit Date/Time Jan 17, 2019 at 15:58 Initial Consult Date 01/18/19 Type of Consult id Requesting Provider: IVAN AKHTAR MD Date/Time of Note DATE: 02/20/19 TIME: 13:56 Exam/Review of Systems Exam Vitals Vital Signs Date Temp Pulse Resp B/P (MAP) Pulse Ox O2 O2 Flow FiO2 Time Delivery Rate 02/20/19 99 40 13:38 02/20/19 81 13:36 02/20/19 74 12:00 02/20/19 97.9 131/58 11:12 (82) 02/20/19 High Flow 03:41 Intake and Output 02/19/19 02/19/19 02/20/19 1515:00 23:00 07:00 IntakeIntake Total 1040 ml 480 ml 960 ml OutputOutput Total 450 ml 700 ml BalanceBalance 1040 ml 30 ml 260 ml Results Result Diagram: 02/20/19 0804 02/20/19 0804 Results 24hrs Laboratory Tests Test 02/19/19 17:35 02/19/19 21:03 02/20/19 01:06 02/20/19 05:45 Bedside Glucose 223 H 190 213 211 Test 02/20/19 08:00 02/20/19 08:04 02/20/19 13:04 02/20/19 13:10 Bedside Glucose 214 241 H White Blood Count 7.2 Red Blood Count 2.75 L Hemoglobin 7.7 L Hematocrit 26.2 L Mean Corpuscular 95.3 Volume Mean Corpuscular 28.0 L Hemoglobin Mean Corpuscular 29.4 L Hemoglobin Concent Red Cell 19.5 H Distribution Width Platelet Count 109 L Mean Platelet Volume 12.6 H Immature 0.700 H Granulocytes % Neutrophils % 82.8 H Lymphocytes % 11.4 L Monocytes % 5.1 Eosinophils % 0.0 Basophils % 0.0 Nucleated Red Blood 1.8 H Cells % Immature 0.050 H Granulocytes # Neutrophils # 6.0 Lymphocytes # 0.8 Monocytes # 0.4 Eosinophils # 0.0 Basophils # 0.0 Nucleated Red Blood 0.1 H Cells # Sodium Level 146 H Potassium Level 3.3 L Chloride Level 111 H Carbon Dioxide Level 28 Anion Gap 7 Blood Urea Nitrogen 113 H Creatinine 2.02 H Est Glomerular Filtrat Rate mL/min Glucose Level 189 Calcium Level 7.7 L Phosphorus Level 4.6 Magnesium Level 2.3 Prothrombin Time 19.0 H Prothrombin Time 1.5 Ratio INR International 1.58 Normalized Ratio Activated 28.9 Partial Thromboplast Time Medications Medication Current Medications Acetaminophen (Tylenol Tab) 650 mg Q4H PRN PO PAIN Last administered on 02/11/19at 21:29; Admin Dose 650 MG; Start 01/17/19 at 18:17 Miscellaneous Information (Pending [facility] Order For Wound Care) This patient ramirez... PRN PRN XX WOUND CARE; Start 01/17/19 at 18:17 Albuterol/ Ipratropium (Duoneb) 3 ml Q2H RESP THERAPY PRN HHN SHORTNESS OF BREATH Last administered on 02/13/19at 05:52; Admin Dose 3 ML; Start 01/17/19 at 18:17 Bisacodyl (Dulcolax) 10 mg BID PRN PO CONSTIPATION; Start 01/17/19 at 18:17; Status Hold Folic Acid (Folic Acid) 1 mg DAILY PO Last administered on 02/20/19at 08:30; Admin Dose 1 MG; Start 01/17/19 at 18:17 Latanoprost (Xalatan) 1 drop HS BOTH EYES Last administered on 02/19/19at 21:09; Admin Dose 1 DROP; Start 01/17/19 at 18:17 Nitroglycerin (Nitroglycerin (Sl Tab) 0.4 Mg) 0.4 tab Q5M PRN SL CHEST PAIN; Start 01/17/19 at 18:17 IV Flush (NS 3 ml) 3 ml PER PROTOCOL IV ; Start 01/17/19 at 18:17 Glucose (Glutose) 15 gm Q15M PRN PO DECREASED GLUCOSE; Start 01/17/19 at 18:17 Glucose (Glutose) 22.5 gm Q15M PRN PO DECREASED GLUCOSE; Start 01/17/19 at 18:17 Dextrose (D50w Syringe) 25 ml Q15M PRN IV DECREASED GLUCOSE Last administered on 02/14/19at 17:23; Admin Dose 25 ML; Start 01/17/19 at 18:17 Dextrose (D50w Syringe) 50 ml Q15M PRN IV DECREASED GLUCOSE; Start 01/17/19 at 18:17 Glucagon (Glucagen) 1 mg Q15M PRN IM DECREASED GLUCOSE Last administered on 02/11/19at 17:55; Admin Dose 1 MG; Start 01/17/19 at 18:17 Glucose (Glutose) 15 gm Q15M PRN BUCCAL DECREASED GLUCOSE; Start 01/17/19 at 18:17 Bisacodyl (Dulcolax Supp) 10 mg DAILY PRN [place] CONSTIPATION; Start 01/17/19 at 18:17 Zinc Acetate/ Diphenhydramine (Benadryl 2% Cr) 1 applic Q6H PRN TOP ITCHING Last administered on 01/26/19at 07:54; Admin Dose 1 APPLIC; Start 01/19/19 at 16:37 IV Flush (NS 10 ml) 10 ml PRN PRN IV IV PROTOCOL; Start 01/20/19 at 14:30 Cyanocobalamin (Vitamin B12 Inj) 1,000 mcg Q7D IM Last administered on 02/17/19at 08:30; Admin Dose 1,000 MCG; Start 02/03/19 at 09:00 Metoprolol Tartrate (Lopressor) 5 mg Q4H PRN IV HR>110 Hold SBP<100; Start 01/26/19 at 14:30 Enoxaparin Sodium (Lovenox) 60 mg DAILY SC Last administered on 02/03/19 08:06; Admin Dose 60 MG; Start 01/28/19 at 09:00; Status Hold Docusate Sodium (Colace Liquid Cup) 100 mg BID NGT ; Start 01/27/19 at 22:00; Status Hold Terazosin HCl (Hytrin) 10 mg HS NGT Last administered on 02/19/19 21:10; Admin Dose 10 MG; Start 01/28/19 at 21:00 Levothyroxine Sodium (Synthroid) 125 mcg BEFORE BREAKFAST NGT Last administered on 02/20/19 06:17; Admin Dose 125 MCG; Start 01/28/19 at 07:00 Ferrous Sulfate (Feosol Liquid Cup) 300 mg WITH MEALS GTB Last administered on 02/20/19 11:58; Admin Dose 300 MG; Start 01/28/19 at 11:30 Multivitamins (Multivitamin) 30 ml DAILY GTB Last administered on 02/20/19 08:30; Admin Dose 30 ML; Start 01/28/19 at 11:00 Nystatin/ Triamcinolone Acetonide (Mycolog Oint) 1 applic BID TOP Last administered on 02/20/19 08:34; Admin Dose 1 APPLIC; Start 01/28/19 at 22:30 Insulin Aspart (Novolog Insulin Pen) NOVOLOG *MILD* ALGORI... Q4 SC Last administered on 02/20/19 13:13; Admin Dose 3 UNIT; Start 01/29/19 at 05:00 Albuterol/ Ipratropium (Duoneb) 3 ml Q6HWA RESP THERAPY HHN Last administered on 02/20/19 13:34; Admin Dose 3 ML; Start 01/29/19 at 14:00 Epoetin Dae-epbx (RETACRIT(non-esrd)) 40,000 unit Mo@1700 SC Last administered on 02/17/19 17:18; Admin Dose 40,000 UNIT; Start 02/03/19 at 17:00 Eye Lubricant (Refresh Plus) 1 drop QID BOTH EYES Last administered on 02/20/19 08:30; Admin Dose 1 DROP; Start 02/06/19 at 09:00 Eye Lubricant (Akwa Oint) 1 applic HS LEFT EYE Last administered on 02/19/19 21:10; Admin Dose 1 APPLIC; Start 02/06/19 at 21:00 Multi-Ingredient Ointment (Aquaphor Oint 52.5 Gm) 1 applic BID TOP Last administered on 02/20/19 08:33; Admin Dose 1 APPLIC; Start 02/06/19 at 22:40 Morphine Sulfate (morphine) 0.25 mg Q4H PRN IV SEVERE PAIN LEVEL 7-10 Last administered on 02/15/19 11:23; Admin Dose 0.25 MG; Start 02/15/19 at 11:00 Metoprolol Tartrate (Lopressor) 12.5 mg BID NGT Last administered on 02/20/19 08:31; Admin Dose 12.5 MG; Start 02/17/19 at 21:00 Insulin Glargine (Lantus) 8 units DAILY@2000 SC Last administered on 02/19/19 21:14; Admin Dose 8 UNITS; Start 02/18/19 at 20:00 Methylprednisolone Sodium Succinate (Solu-Medrol) 40 mg Q12 IV Last admi nistered on 02/20/19 08:30; Admin Dose 40 MG; Start 02/18/19 at 21:00 Pantoprazole (Protonix Iv) 40 mg BID@06,18 IV Last administered on 02/20/19 06:56; Admin Dose 40 MG; Start 02/19/19 at 18:00 LUCIAN HARKINS NP February 20, 2019 14:01
[2019-02-20] MEDS ORDERED: POTASSIUM CHLORIDE (SR) 10 MEQ TAB PO ONE (15:00)
--- NOTE | 2019-02-20 15:01 | PN ---
Date/Time of Note Date/Time of Note DATE: 02/20/19 TIME: 14:58 Assessment/Plan VTE Prophylaxis Risk score (from [facility])>0 risk: 7 SCD applied (from [facility]): No SCD contraindicated: low risk/ambulating Pharmacological prophylaxis: NA/contraindicated Pharm contraindication: low risk/ambulating Lines/Catheters IV Catheter Type (from [facility]): Central Line Central line still needed: Yes Urinary Cath still in place: Yes Reason Cath still needed: urinary retention Assessment/Plan Hospital Course Hospital Course # AMS likely due to stroke vs seizure, 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 Septic shock now on pressors likely secondary to pneumonia on levophed resolved # Hypothermia ? sepsis #. 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 Chronic renal failure likely secondary to sepsis, improved, normal creatinine #. Hypertension.currently hypotensive resolved # Impending respiratory failure on high flow likely secondary to fluid overload/pneumonia # Anasarca # Hyperlipidemia. # Hypothyroidism. # Bilateral groin cellulitis more likely associated with mateus, patches in groin and axilla bilaterally. skin peeling # History of rheumatoid arthritis with joint deformities. # Diabetes type 2. # Hx of CABGx2, carotid stent #. Peripheral vascular disease. #. Chronic a.fib, now on lovenox #. right arm edema # Neoplasm per CT abdomen. 4.3 cm cystic lesion along the pancreas body, enlarged since 10/10/2012 (previously 2.4 cm). 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 # Possible allergic skin reaction ? drug present since admission> improved s/p biopsy/ Amrik Serafin > limit results solar keratosis # hypoThermia #Hypernatremia [facility] due to dehydration improving # metabolic alkalosis Plan -On high flow. 60%>40% -Gentle diuresis as patient has worsening renal failure/uremia -Thoracentesis on the right today after INR -[place] flushes -Increase Lantus -Monitor kidney function -dec steroids - nebs, - GI consult> hold lovenox due to possible bleeding, iv ppi> G-tube on hold currently improved pending improvement in respiratory status - cw lovenox 60 for afib> held due to anemia ? ASA - GI and DVT prophylaxsis -oncology consul dr Lorenzo aware:he said Ca 19-9 is negative indicating unlikely malignant. This may be a pseudocyst or a precancerous pancreatic lesion. It has been growing in size but patient is asymptomatic. EUS with biopsy is recommended and can either be done inpatient or outpatient setting. The patient at this time is unlikely a candidate for a Whipple surgery however. -skin care - s/p skin biopsy pending results solar elastosis according to them is probably due to antibiotics -Off of all antibiotics Limitations to discharge labile respiratory status with pneumonia CHF renal failure and altered mental status he is DNR/DNI Result Diagram: 02/20/19 0804 02/20/19 0804 Results 24hrs Laboratory Tests Test 02/19/19 17:35 02/19/19 21:03 02/20/19 01:06 02/20/19 05:45 Bedside Glucose 223 H 190 213 211 Test 02/20/19 08:00 02/20/19 08:04 02/20/19 13:04 02/20/19 13:10 Bedside Glucose 214 241 H White Blood Count 7.2 Red Blood Count 2.75 L Hemoglobin 7.7 L Hematocrit 26.2 L Mean Corpuscular 95.3 Volume Mean Corpuscular 28.0 L Hemoglobin Mean Corpuscular 29.4 L Hemoglobin Concent Red Cell 19.5 H Distribution Width Platelet Count 109 L Mean Platelet Volume 12.6 H Immature 0.700 H Granulocytes % Neutrophils % 82.8 H Lymphocytes % 11.4 L Monocytes % 5.1 Eosinophils % 0.0 Basophils % 0.0 Nucleated Red Blood 1.8 H Cells % Immature 0.050 H Granulocytes # Neutrophils # 6.0 Lymphocytes # 0.8 Monocytes # 0.4 Eosinophils # 0.0 Basophils # 0.0 Nucleated Red Blood 0.1 H Cells # Sodium Level 146 H Potassium Level 3.3 L Chloride Level 111 H Carbon Dioxide Level 28 Anion Gap 7 Blood Urea Nitrogen 113 H Creatinine 2.02 H Est Glomerular Filtrat Rate mL/min Glucose Level 189 Calcium Level 7.7 L Phosphorus Level 4.6 Magnesium Level 2.3 Prothrombin Time 19.0 H Prothrombin Time 1.5 Ratio INR International 1.58 Normalized Ratio Activated 28.9 Partial Thromboplast Time Subjective 24 Hr Interval Summary Free Text/Dictation Thoracentesis scheduled today Currently on high flow 40% Response to name tries to answer some questions Exam/Review of Systems Exam Vitals Vital Signs Date Temp Pulse Resp B/P (MAP) Pulse Ox O2 O2 Flow FiO2 Time Delivery Rate 02/20/19 99 40 13:38 02/20/19 81 13:36 02/20/19 74 12:00 02/20/19 97.9 131/58 11:12 (82) 02/20/19 High Flow 03:41 Intake and Output 02/19/19 02/19/19 02/20/19 1515:00 23:00 07:00 IntakeIntake Total 1040 ml 480 ml 960 ml OutputOutput Total 450 ml 700 ml BalanceBalance 1040 ml 30 ml 260 ml Exam G tube Constitutional: alert, frail, try to squeeze his fingers Head: normocephalic Eyes: nl conjunctiva Neck: supple Respiratory: diminished breath sounds, crackles Cardiovascular: regular rate and rhythm Gastrointestinal: soft Genitourinary - Male: nl penis Skin: other (skin is peeling), skin rash is much improved. Results Results Results 24hrs Laboratory Tests Test 02/19/19 17:35 02/19/19 21:03 02/20/19 01:06 02/20/19 05:45 Bedside Glucose 223 H 190 213 211 Test 02/20/19 08:00 02/20/19 08:04 02/20/19 13:04 02/20/19 13:10 Bedside Glucose 214 241 H White Blood Count 7.2 Red Blood Count 2.75 L Hemoglobin 7.7 L Hematocrit 26.2 L Mean Corpuscular 95.3 Volume Mean Corpuscular 28.0 L Hemoglobin Mean Corpuscular 29.4 L Hemoglobin Concent Red Cell 19.5 H Distribution Width Platelet Count 109 L Mean Platelet Volume 12.6 H Immature 0.700 H Granulocytes % Neutrophils % 82.8 H Lymphocytes % 11.4 L Monocytes % 5.1 Eosinophils % 0.0 Basophils % 0.0 Nucleated Red Blood 1.8 H Cells % Immature 0.050 H Granulocytes # Neutrophils # 6.0 Lymphocytes # 0.8 Monocytes # 0.4 Eosinophils # 0.0 Basophils # 0.0 Nucleated Red Blood 0.1 H Cells # Sodium Level 146 H Potassium Level 3.3 L Chloride Level 111 H Carbon Dioxide Level 28 Anion Gap 7 Blood Urea Nitrogen 113 H Creatinine 2.02 H Est Glomerular Filtrat Rate mL/min Glucose Level 189 Calcium Level 7.7 L Phosphorus Level 4.6 Magnesium Level 2.3 Prothrombin Time 19.0 H Prothrombin Time 1.5 Ratio INR International 1.58 Normalized Ratio Activated 28.9 Partial Thromboplast Time Medications Medication Current Medications Acetaminophen (Tylenol Tab) 650 mg Q4H PRN PO PAIN Last administered on 02/11/19at 21:29; Admin Dose 650 MG; Start 01/17/19 at 18:17 Miscellaneous Information (Pending [facility] Order For Wound Care) This patient ramirez... PRN PRN XX WOUND CARE; Start 01/17/19 at 18:17 Albuterol/ Ipratropium (Duoneb) 3 ml Q2H RESP THERAPY PRN HHN SHORTNESS OF BREATH Last administered on 02/13/19at 05:52; Admin Dose 3 ML; Start 01/17/19 at 18:17 Bisacodyl (Dulcolax) 10 mg BID PRN PO CONSTIPATION; Start 01/17/19 at 18:17; Status Hold Folic Acid (Folic Acid) 1 mg DAILY PO Last administered on 02/20/19at 08:30; Admin Dose 1 MG; Start 01/17/19 at 18:17 Latanoprost (Xalatan) 1 drop HS BOTH EYES Last administered on 02/19/19at 21:09; Admin Dose 1 DROP; Start 01/17/19 at 18:17 Nitroglycerin (Nitroglycerin (Sl Tab) 0.4 Mg) 0.4 tab Q5M PRN SL CHEST PAIN; Start 01/17/19 at 18:17 IV Flush (NS 3 ml) 3 ml PER PROTOCOL IV ; Start 01/17/19 at 18:17 Glucose (Glutose) 15 gm Q15M PRN PO DECREASED GLUCOSE; Start 01/17/19 at 18:17 Glucose (Glutose) 22.5 gm Q15M PRN PO DECREASED GLUCOSE; Start 01/17/19 at 18:17 Dextrose (D50w Syringe) 25 ml Q15M PRN IV DECREASED GLUCOSE Last administered on 02/14/19at 17:23; Admin Dose 25 ML; Start 01/17/19 at 18:17 Dextrose (D50w Syringe) 50 ml Q15M PRN IV DECREASED GLUCOSE; Start 01/17/19 at 18:17 Glucagon (Glucagen) 1 mg Q15M PRN IM DECREASED GLUCOSE Last administered on 02/11/19at 17:55; Admin Dose 1 MG; Start 01/17/19 at 18:17 Glucose (Glutose) 15 gm Q15M PRN BUCCAL DECREASED GLUCOSE; Start 01/17/19 at 18:17 Bisacodyl (Dulcolax Supp) 10 mg DAILY PRN [place] CONSTIPATION; Start 01/17/19 at 18:17 Zinc Acetate/ Diphenhydramine (Benadryl 2% Cr) 1 applic Q6H PRN TOP ITCHING Last administered on 01/26/19 07:54; Admin Dose 1 APPLIC; Start 01/19/19 at 16:37 IV Flush (NS 10 ml) 10 ml PRN PRN IV IV PROTOCOL; Start 01/20/19 at 14:30 Cyanocobalamin (Vitamin B12 Inj) 1,000 mcg Q7D IM Last administered on 02/17/19 08:30; Admin Dose 1,000 MCG; Start 02/03/19 at 09:00 Metoprolol Tartrate (Lopressor) 5 mg Q4H PRN IV HR>110 Hold SBP<100; Start 01/26/19 at 14:30 Enoxaparin Sodium (Lovenox) 60 mg DAILY SC Last administered on 02/03/19 08:06; Admin Dose 60 MG; Start 01/28/19 at 09:00; Status Hold Docusate Sodium (Colace Liquid Cup) 100 mg BID NGT ; Start 01/27/19 at 22:00; Status Hold Terazosin HCl (Hytrin) 10 mg HS NGT Last administered on 02/19/19 21:10; Admin Dose 10 MG; Start 01/28/19 at 21:00 Levothyroxine Sodium (Synthroid) 125 mcg BEFORE BREAKFAST NGT Last administered on 02/20/19 06:17; Admin Dose 125 MCG; Start 01/28/19 at 07:00 Ferrous Sulfate (Feosol Liquid Cup) 300 mg WITH MEALS GTB Last administered on 02/20/19 11:58; Admin Dose 300 MG; Start 01/28/19 at 11:30 Multivitamins (Multivitamin) 30 ml DAILY GTB Last administered on 02/20/19 08:30; Admin Dose 30 ML; Start 01/28/19 at 11:00 Nystatin/ Triamcinolone Acetonide (Mycolog Oint) 1 applic BID TOP Last administered on 02/20/19 08:34; Admin Dose 1 APPLIC; Start 01/28/19 at 22:30 Insulin Aspart (Novolog Insulin Pen) NOVOLOG *MILD* ALGORI... Q4 SC Last administered on 02/20/19 13:13; Admin Dose 3 UNIT; Start 01/29/19 at 05:00 Albuterol/ Ipratropium (Duoneb) 3 ml Q6HWA RESP THERAPY HHN Last administered on 02/20/19 13:34; Admin Dose 3 ML; Start 01/29/19 at 14:00 Epoetin Dae-epbx (RETACRIT(non-esrd)) 40,000 unit Mo@1700 SC Last administered on 02/17/19 17:18; Admin Dose 40,000 UNIT; Start 02/03/19 at 17:00 Eye Lubricant (Refresh Plus) 1 drop QID BOTH EYES Last administered on 02/20/19 08:30; Admin Dose 1 DROP; Start 02/06/19 at 09:00 Eye Lubricant (Akwa Oint) 1 applic HS LEFT EYE Last administered on 02/19/19 21:10; Admin Dose 1 APPLIC; Start 02/06/19 at 21:00 Multi-Ingredient Ointment (Aquaphor Oint 52.5 Gm) 1 applic BID TOP Last administered on 02/20/19 08:33; Admin Dose 1 APPLIC; Start 02/06/19 at 22:40 Morphine Sulfate (morphine) 0.25 mg Q4H PRN IV SEVERE PAIN LEVEL 7-10 Last administered on 02/15/19 11:23; Admin Dose 0.25 MG; Start 02/15/19 at 11:00 Metoprolol Tartrate (Lopressor) 12.5 mg BID NGT Last administered on 02/20/19 08:31; Admin Dose 12.5 MG; Start 02/17/19 at 21:00 Insulin Glargine (Lantus) 8 units DAILY@2000 SC Last administered on 02/19/19 21:14; Admin Dose 8 UNITS; Start 02/18/19 at 20:00 Pantoprazole (Protonix Iv) 40 mg BID@06,18 IV Last administered on 02/20/19 06:56; Admin Dose 40 MG; Start 02/19/19 at 18:00 Potassium Chloride (Klor-Con 10) 30 meq ONCE ONCE PO ; Start 02/20/19 at 15:00; Stop 02/20/19 at 15:01; Status UNV Methylprednisolone Sodium Succinate (Solu-Medrol) 40 mg DAILY IV ; Start 02/21/19 at 09:00; Status UNV IVAN AKHTAR MD February 20, 2019 15:01
[2019-02-20] MEDS ORDERED: POTASSIUM CHLORIDE 20 MEQ POWDER FOR ORAL SOLN PO SCH (15:30)
--- NOTE | 2019-02-20 18:37 | CONS ---
Assessment/Plan Assessment/Plan Assessment/Plan (Daily) History of chronic renal failure. Serious comorbid medical problems indicating a poor outcome including good mental status, low total protein albumin levels multiple comorbid medical problems possible history of immunosuppression secondary to rheumatoid arthritis. It is unknown whether not patient was on immune modulators targeted therapy prior to hospitalization. Overall prognosis and PPS score indicates poor outcome. Respiratory failure require readmission to the intensive care unit now back on MedSur Code status remains do not resuscitate do not re-intubated I've had multiple conversations with patients daughter before patient is discharged he should have a POLST form completed reemphasizing code status Patient's daughter adamantly refused hospice referral Consultation Date/Type/Reason Admit Date/Time Jan 17, 2019 at 15:58 Initial Consult Date 01/18/19 Requesting Provider: IVAN AKHTAR MD Date/Time of Note DATE: 02/20/19 TIME: 18:34 Exam/Review of Systems Exam Vitals Vital Signs Date Temp Pulse Resp B/P (MAP) Pulse Ox O2 O2 Flow FiO2 Time Delivery Rate 02/20/19 93 40 17:24 02/20/19 76 16:00 02/20/19 97.4 20 153/67 15:59 (95) 02/20/19 High Flow 03:41 Intake and Output 02/19/19 02/19/19 02/20/19 1515:00 23:00 07:00 IntakeIntake Total 1040 ml 480 ml 960 ml OutputOutput Total 450 ml 700 ml BalanceBalance 1040 ml 30 ml 260 ml Results Result Diagram: 02/20/19 0804 02/20/19 0804 Results 24hrs Laboratory Tests Test 02/19/19 21:03 02/20/19 01:06 02/20/19 05:45 02/20/19 08:00 Bedside Glucose 190 213 211 214 Test 02/20/19 08:04 02/20/19 13:04 02/20/19 13:10 02/20/19 18:11 White Blood Count 7.2 Red Blood Count 2.75 L Hemoglobin 7.7 L Hematocrit 26.2 L Mean Corpuscular 95.3 Volume Mean Corpuscular 28.0 L Hemoglobin Mean Corpuscular 29.4 L Hemoglobin Concent Red Cell 19.5 H Distribution Width Platelet Count 109 L Mean Platelet Volume 12.6 H Immature 0.700 H Granulocytes % Neutrophils % 82.8 H Lymphocytes % 11.4 L Monocytes % 5.1 Eosinophils % 0.0 Basophils % 0.0 Nucleated Red Blood 1.8 H Cells % Immature 0.050 H Granulocytes # Neutrophils # 6.0 Lymphocytes # 0.8 Monocytes # 0.4 Eosinophils # 0.0 Basophils # 0.0 Nucleated Red Blood 0.1 H Cells # Sodium Level 146 H Potassium Level 3.3 L Chloride Level 111 H Carbon Dioxide Level 28 Anion Gap 7 Blood Urea Nitrogen 113 H Creatinine 2.02 H Est Glomerular Filtrat Rate mL/min Glucose Level 189 Calcium Level 7.7 L Phosphorus Level 4.6 Magnesium Level 2.3 Prothrombin Time 19.0 H Prothrombin Time 1.5 Ratio INR International 1.58 Normalized Ratio Activated 28.9 Partial Thromboplast Time Bedside Glucose 241 H 250 H Medications Medication Current Medications Acetaminophen (Tylenol Tab) 650 mg Q4H PRN PO PAIN Last administered on 02/11/19at 21:29; Admin Dose 650 MG; Start 01/17/19 at 18:17 Miscellaneous Information (Pending [facility] Order For Wound Care) This patient ramirez... PRN PRN XX WOUND CARE; Start 01/17/19 at 18:17 Albuterol/ Ipratropium (Duoneb) 3 ml Q2H RESP THERAPY PRN HHN SHORTNESS OF BREATH Last administered on 02/13/19at 05:52; Admin Dose 3 ML; Start 01/17/19 at 18:17 Bisacodyl (Dulcolax) 10 mg BID PRN PO CONSTIPATION; Start 01/17/19 at 18:17; Status Hold Folic Acid (Folic Acid) 1 mg DAILY PO Last administered on 02/20/19at 08:30; Admin Dose 1 MG; Start 01/17/19 at 18:17 Latanoprost (Xalatan) 1 drop HS BOTH EYES Last administered on 02/19/19at 21:09; Admin Dose 1 DROP; Start 01/17/19 at 18:17 Nitroglycerin (Nitroglycerin (Sl Tab) 0.4 Mg) 0.4 tab Q5M PRN SL CHEST PAIN; Start 01/17/19 at 18:17 IV Flush (NS 3 ml) 3 ml PER PROTOCOL IV ; Start 01/17/19 at 18:17 Glucose (Glutose) 15 gm Q15M PRN PO DECREASED GLUCOSE; Start 01/17/19 at 18:17 Glucose (Glutose) 22.5 gm Q15M PRN PO DECREASED GLUCOSE; Start 01/17/19 at 18:17 Dextrose (D50w Syringe) 25 ml Q15M PRN IV DECREASED GLUCOSE Last administered on 02/14/19at 17:23; Admin Dose 25 ML; Start 01/17/19 at 18:17 Dextrose (D50w Syringe) 50 ml Q15M PRN IV DECREASED GLUCOSE; Start 01/17/19 at 18:17 Glucagon (Glucagen) 1 mg Q15M PRN IM DECREASED GLUCOSE Last administered on 02/11/19at 17:55; Admin Dose 1 MG; Start 01/17/19 at 18:17 Glucose (Glutose) 15 gm Q15M PRN BUCCAL DECREASED GLUCOSE; Start 01/17/19 at 18:17 Bisacodyl (Dulcolax Supp) 10 mg DAILY PRN [place] CONSTIPATION; Start 01/17/19 at 18:17 Zinc Acetate/ Diphenhydramine (Benadryl 2% Cr) 1 applic Q6H PRN TOP ITCHING Last administered on 01/26/19at 07:54; Admin Dose 1 APPLIC; Start 01/19/19 at 16:37 IV Flush (NS 10 ml) 10 ml PRN PRN IV IV PROTOCOL; Start 01/20/19 at 14:30 Cyanocobalamin (Vitamin B12 Inj) 1,000 mcg Q7D IM Last administered on 02/17/19at 08:30; Admin Dose 1,000 MCG; Start 02/03/19 at 09:00 Metoprolol Tartrate (Lopressor) 5 mg Q4H PRN IV HR>110 Hold SBP<100; Start 01/26/19 at 14:30 Enoxaparin Sodium (Lovenox) 60 mg DAILY SC Last administered on 02/03/19at 08:06; Admin Dose 60 MG; Start 01/28/19 at 09:00; Status Hold Docusate Sodium (Colace Liquid Cup) 100 mg BID NGT ; Start 01/27/19 at 22:00; Status Hold Terazosin HCl (Hytrin) 10 mg HS NGT Last administered on 02/19/19at 21:10; Admin Dose 10 MG; Start 01/28/19 at 21:00 Levothyroxine Sodium (Synthroid) 125 mcg BEFORE BREAKFAST NGT Last administered on 02/20/19 06:17; Admin Dose 125 MCG; Start 01/28/19 at 07:00 Ferrous Sulfate (Feosol Liquid Cup) 300 mg WITH MEALS GTB Last administered on 02/20/19 16:10; Admin Dose 300 MG; Start 01/28/19 at 11:30 Multivitamins (Multivitamin) 30 ml DAILY GTB Last administered on 02/20/19 08:30; Admin Dose 30 ML; Start 01/28/19 at 11:00 Nystatin/ Triamcinolone Acetonide (Mycolog Oint) 1 applic BID TOP Last administered on 02/20/19 08:34; Admin Dose 1 APPLIC; Start 01/28/19 at 22:30 Insulin Aspart (Novolog Insulin Pen) NOVOLOG *MILD* ALGORI... Q4 SC Last administered on 02/20/19 13:13; Admin Dose 3 UNIT; Start 01/29/19 at 05:00 Albuterol/ Ipratropium (Duoneb) 3 ml Q6HWA RESP THERAPY HHN Last administered on 02/20/19 13:34; Admin Dose 3 ML; Start 01/29/19 at 14:00 Epoetin Dae-epbx (RETACRIT(non-esrd)) 40,000 unit Mo@1700 SC Last administered on 02/17/19 17:18; Admin Dose 40,000 UNIT; Start 02/03/19 at 17:00 Eye Lubricant (Refresh Plus) 1 drop QID BOTH EYES Last administered on 02/20/19 08:30; Admin Dose 1 DROP; Start 02/06/19 at 09:00 Eye Lubricant (Akwa Oint) 1 applic HS LEFT EYE Last administered on 02/19/19 21:10; Admin Dose 1 APPLIC; Start 02/06/19 at 21:00 Multi-Ingredient Ointment (Aquaphor Oint 52.5 Gm) 1 applic BID TOP Last administered on 02/20/19 08:33; Admin Dose 1 APPLIC; Start 02/06/19 at 22:40 Morphine Sulfate (morphine) 0.25 mg Q4H PRN IV SEVERE PAIN LEVEL 7-10 Last administered on 02/15/19 11:23; Admin Dose 0.25 MG; Start 02/15/19 at 11:00 Metoprolol Tartrate (Lopressor) 12.5 mg BID NGT Last administered on 02/20/19at 08:31; Admin Dose 12.5 MG; Start 02/17/19 at 21:00 Pantoprazole (Protonix Iv) 40 mg BID@06,18 IV Last administered on 02/20/19at 06:56; Admin Dose 40 MG; Start 02/19/19 at 18:00 Methylprednisolone Sodium Succinate (Solu-Medrol) 40 mg DAILY IV ; Start at 09:00 Insulin Glargine (Lantus) 12 units DAILY@2000 SC ; Start 02/20/19 at 20:00 MARGARITO WILSON February 20, 2019 18:37
--- NOTE | 2019-02-20 18:44 | CONS ---
Assessment/Plan Assessment/Plan Hospital Course (Demo Recall) IMPRESSION: 1. Atrial fibrillation, currently rate controlled.-off systemic anticoagulation due to anemia. 2. Possible congestive heart failure by chest x-ray, which will be diastolic, acute on chronic by most recent echo with an EF of 60%. 3. Tricuspid regurgitation, moderate by most recent echo. 4. Acute on chronic renal failure-mild worsening 5. Possible pneumonia. 6. History of coronary artery disease, status post coronary artery bypass graft surgery. 7. Dyslipidemia. 8. Rheumatoid arthritis. 9. Groin cellulitis. 10. Anemia-worsening again today. s/p endoscopy during this admission 11. Diabetes mellitus. 12. Sepsis/leukocytosis 14. abdominal mass 15. Rash-all over body with skin chaffing at this time, probable drug reaction- significantly improved 16. Encephalopathy-ongoing. MRI negative for acute CVA 17. coagulopathy-ongoing and mildly increased Recc: -Now transferred back to ICU due to unstable BP -serial ecg's -Continue statin -Continue broad spectrum abx's and f/u cx data -ongoing derm eval of rash and continue topical treatment -BB as tolerated only and was held today -off anticoagulation secondary to anemia/GIB requiring trasnfusions -transfuse PRBC's as necessary -lasix currently held due to renal failure/borderline BP -now on steroids/bronchodilators follow resp status and wean high flow oxygen as tolerated -Now DNR Consultation Date/Type/Reason Admit Date/Time Jan 17, 2019 at 15:58 Initial Consult Date 01/18/19 Type of Consult Cardiology Reason for Consultation AF/HTN Requesting Provider: IVAN AKHTAR MD Date/Time of Note DATE: 02/20/19 TIME: 18:42 Exam/Review of Systems Vital Signs Vitals Vital Signs Date Temp Pulse Resp B/P (MAP) Pulse Ox O2 O2 Flow FiO2 Time Delivery Rate 02/20/19 93 40 17:24 02/20/19 76 16:00 02/20/19 97.4 20 153/67 15:59 (95) 02/20/19 High Flow 03:41 Intake and Output 02/19/19 02/19/19 02/20/19 1515:00 23:00 07:00 IntakeIntake Total 1040 ml 480 ml 960 ml OutputOutput Total 450 ml 700 ml BalanceBalance 1040 ml 30 ml 260 ml Exam Exam Review of Systems: CONSTITUTIONAL: No fevers, chills. PULMONARY: No sob CARDIOVASCULAR: No chest pain/palpitations GASTROINTESTINAL: No nausea/vomiting. GENITOURINARY: No hematuria/dysuria. MUSCULOSKELETAL: No myagias/arthalgias. PSYCHIATRIC: The patient denies depression. NEUROLOGIC: No weakness Constitutional: alert Psych: no complaints Head: normocephalic ENMT: mucosa pink and moist Neck: supple, jvd (9 cm water) Respiratory: diminished breath sounds Cardiovascular: regular rate and rhythm Gastrointestinal: soft, non-tender Musculoskeletal: muscle tone (normal) Extremities: edema (none) Neurological: confused, lethargic Skin: other (significant improvement in skin breakdown) Labs Result Diagram: 02/20/19 0804 02/20/19 0804 Results 24hrs Laboratory Tests Test 02/19/19 21:03 02/20/19 01:06 02/20/19 05:45 02/20/19 08:00 Bedside Glucose 190 213 211 214 Test 02/20/19 08:04 02/20/19 13:04 02/20/19 13:10 02/20/19 18:11 White Blood Count 7.2 Red Blood Count 2.75 L Hemoglobin 7.7 L Hematocrit 26.2 L Mean Corpuscular 95.3 Volume Mean Corpuscular 28.0 L Hemoglobin Mean Corpuscular 29.4 L Hemoglobin Concent Red Cell 19.5 H Distribution Width Platelet Count 109 L Mean Platelet Volume 12.6 H Immature 0.700 H Granulocytes % Neutrophils % 82.8 H Lymphocytes % 11.4 L Monocytes % 5.1 Eosinophils % 0.0 Basophils % 0.0 Nucleated Red Blood 1.8 H Cells % Immature 0.050 H Granulocytes # Neutrophils # 6.0 Lymphocytes # 0.8 Monocytes # 0.4 Eosinophils # 0.0 Basophils # 0.0 Nucleated Red Blood 0.1 H Cells # Sodium Level 146 H Potassium Level 3.3 L Chloride Level 111 H Carbon Dioxide Level 28 Anion Gap 7 Blood Urea Nitrogen 113 H Creatinine 2.02 H Est Glomerular Filtrat Rate mL/min Glucose Level 189 Calcium Level 7.7 L Phosphorus Level 4.6 Magnesium Level 2.3 Prothrombin Time 19.0 H Prothrombin Time 1.5 Ratio INR International 1.58 Normalized Ratio Activated 28.9 Partial Thromboplast Time Bedside Glucose 241 H 250 H Medications Medications Current Medications Acetaminophen (Tylenol Tab) 650 mg Q4H PRN PO PAIN Last administered on 02/11/19at 21:29; Admin Dose 650 MG; Start 01/17/19 at 18:17 Miscellaneous Information (Pending Santyl Order For Wound Care) This patient ramirez... PRN PRN XX WOUND CARE; Start 01/17/19 at 18:17 Albuterol/ Ipratropium (Duoneb) 3 ml Q2H RESP THERAPY PRN HHN SHORTNESS OF BREATH Last administered on 02/13/19at 05:52; Admin Dose 3 ML; Start 01/17/19 at 18:17 Bisacodyl (Dulcolax) 10 mg BID PRN PO CONSTIPATION; Start 01/17/19 at 18:17; Status Hold Folic Acid (Folic Acid) 1 mg DAILY PO Last administered on 02/20/19at 08:30; Admin Dose 1 MG; Start 01/17/19 at 18:17 Latanoprost (Xalatan) 1 drop HS BOTH EYES Last administered on 02/19/19at 21:09; Admin Dose 1 DROP; Start 01/17/19 at 18:17 Nitroglycerin (Nitroglycerin (Sl Tab) 0.4 Mg) 0.4 tab Q5M PRN SL CHEST PAIN; Start 01/17/19 at 18:17 IV Flush (NS 3 ml) 3 ml PER PROTOCOL IV ; Start 01/17/19 at 18:17 Glucose (Glutose) 15 gm Q15M PRN PO DECREASED GLUCOSE; Start 01/17/19 at 18:17 Glucose (Glutose) 22.5 gm Q15M PRN PO DECREASED GLUCOSE; Start 01/17/19 at 18:17 Dextrose (D50w Syringe) 25 ml Q15M PRN IV DECREASED GLUCOSE Last administered on 02/14/19at 17:23; Admin Dose 25 ML; Start 01/17/19 at 18:17 Dextrose (D50w Syringe) 50 ml Q15M PRN IV DECREASED GLUCOSE; Start 01/17/19 at 18:17 Glucagon (Glucagen) 1 mg Q15M PRN IM DECREASED GLUCOSE Last administered on 02/11/19at 17:55; Admin Dose 1 MG; Start 01/17/19 at 18:17 Glucose (Glutose) 15 gm Q15M PRN BUCCAL DECREASED GLUCOSE; Start 01/17/19 at 1 8:17 Bisacodyl (Dulcolax Supp) 10 mg DAILY PRN [place] CONSTIPATION; Start 01/17/19 at 18:17 Zinc Acetate/ Diphenhydramine (Benadryl 2% Cr) 1 applic Q6H PRN TOP ITCHING Last administered on 01/26/19 07:54; Admin Dose 1 APPLIC; Start 01/19/19 at 16:37 IV Flush (NS 10 ml) 10 ml PRN PRN IV IV PROTOCOL; Start 01/20/19 at 14:30 Cyanocobalamin (Vitamin B12 Inj) 1,000 mcg Q7D IM Last administered on 08:30; Admin Dose 1,000 MCG; Start 02/03/19 at 09:00 Metoprolol Tartrate (Lopressor) 5 mg Q4H PRN IV HR>110 Hold SBP<100; Start 01/26/19 at 14:30 Enoxaparin Sodium (Lovenox) 60 mg DAILY SC Last administered on 02/03/19 08:06; Admin Dose 60 MG; Start 01/28/19 at 09:00; Status Hold Docusate Sodium (Colace Liquid Cup) 100 mg BID NGT ; Start 01/27/19 at 22:00; Status Hold Terazosin HCl (Hytrin) 10 mg HS NGT Last administered on 02/19/19 21:10; Admin Dose 10 MG; Start 01/28/19 at 21:00 Levothyroxine Sodium (Synthroid) 125 mcg BEFORE BREAKFAST NGT Last administered on 02/20/19 06:17; Admin Dose 125 MCG; Start 01/28/19 at 07:00 Ferrous Sulfate (Feosol Liquid Cup) 300 mg WITH MEALS GTB Last administered on 02/20/19 16:10; Admin Dose 300 MG; Start 01/28/19 at 11:30 Multivitamins (Multivitamin) 30 ml DAILY GTB Last administered on 02/20/19 08:30; Admin Dose 30 ML; Start 01/28/19 at 11:00 Nystatin/ Triamcinolone Acetonide (Mycolog Oint) 1 applic BID TOP Last administered on 02/20/19 08:34; Admin Dose 1 APPLIC; Start 01/28/19 at 22:30 Insulin Aspart (Novolog Insulin Pen) NOVOLOG *MILD* ALGORI... Q4 SC Last administered on 02/20/19 18:32; Admin Dose 3 UNIT; Start 01/29/19 at 05:00 Albuterol/ Ipratropium (Duoneb) 3 ml Q6HWA RESP THERAPY HHN Last administered on 02/20/19 13:34; Admin Dose 3 ML; Start 01/29/19 at 14:00 Epoetin Dae-epbx (RETACRIT(non-esrd)) 40,000 unit Mo@1700 SC Last administered on 02/17/19 17:18; Admin Dose 40,000 UNIT; Start 02/03/19 at 17:00 Eye Lubricant (Refresh Plus) 1 drop QID BOTH EYES Last administered on 02/20/19 08:30; Admin Dose 1 DROP; Start 02/06/19 at 09:00 Eye Lubricant (Akwa Oint) 1 applic HS LEFT EYE Last administered on 02/19/19 21:10; Admin Dose 1 APPLIC; Start 02/06/19 at 21:00 Multi-Ingredient Ointment (Aquaphor Oint 52.5 Gm) 1 applic BID TOP Last administered on 02/20/19 08:33; Admin Dose 1 APPLIC; Start 02/06/19 at 22:40 Morphine Sulfate (morphine) 0.25 mg Q4H PRN IV SEVERE PAIN LEVEL 7-10 Last administered on 02/15/19 11:23; Admin Dose 0.25 MG; Start 02/15/19 at 11:00 Metoprolol Tartrate (Lopressor) 12.5 mg BID NGT Last administered on 02/20/19 08:31; Admin Dose 12.5 MG; Start 02/17/19 at 21:00 Pantoprazole (Protonix Iv) 40 mg BID@06,18 IV Last administered on 02/20/19 18:10; Admin Dose 40 MG; Start 02/19/19 at 18:00 Methylprednisolone Sodium Succinate (Solu-Medrol) 40 mg DAILY IV ; Start 02/21/19 at 09:00 Insulin Glargine (Lantus) 12 units DAILY@2000 SC ; Start 02/20/19 at 20:00 MARJORIE JAIN February 20, 2019 18:44
[2019-02-20] MEDS: OCULAR LUBRICANT 3.5 GM OPH OINT LEFT EYE SCH (20:49)
[2019-02-20] MEDS: TERAZOSIN 5 MG CAP NGT SCH (20:54)
[2019-02-20] MEDS: INSULIN GLARGINE [LANTus] (100 UNITS/ML) SYG SC SCH (21:00)
[2019-02-20] MEDS: LATANOPROST 0.005% 2.5 ML OPH BOTH EYES SCH (21:00)
[2019-02-21] VITALS (16 sets, daily range): BP systolic 107–150; BP diastolic 54–66; PULSE 68–82; RESP 17–20
[2019-02-21] MEDS: INSULIN ASPART [NOVOLOG] 3 ML PEN SC SCH ×6 (01:19→21:00)
[2019-02-21] MEDS: PANTOPRAZOLE 40 MG INJ IV SCH (05:13)
[2019-02-21] MEDS: LEVOTHYROXINE 125 MCG TAB NGT SCH (05:14)
[2019-02-21] MEDS: morphine 2 MG INJ IV PRN (06:06)
[2019-02-21] MEDS: ALBUTEROL/IPRATROPIUM (NEB) 3 ML AMP HHN SCH ×3 (08:25→19:49)
[2019-02-21] MEDS: MULTIVITAMINS 30 ML CUP GTB SCH (09:05)
[2019-02-21] MEDS: CARBOXYMETHYLCELLULOSE 0.5% 0.4 ML OPH BOTH EYES SCH ×4 (09:05→21:00)
[2019-02-21] MEDS: FERROUS SULFATE 60 MG/ML 5ML CUP GTB SCH ×3 (09:05→17:46)
[2019-02-21] MEDS: METHYLPREDNISOLONE 40 MG INJ IV SCH (09:05)
[2019-02-21] MEDS: FOLIC ACID 1 MG TAB PO SCH (09:06)
[2019-02-21] MEDS: AQUAPHOR 52.5 GM OINT TOP SCH ×2 (09:07→20:37)
[2019-02-21] MEDS: METOPROLOL 25 MG TAB NGT SCH ×2 (09:07→20:37)
[2019-02-21] MEDS: BALSAM PERU/CASTOR OIL 60 GM TUBE TOP SCH ×2 (09:07→20:38)
[2019-02-21] MEDS: NYSTATIN/TRIAMCINOLONE 15 GM OINT TOP SCH ×2 (09:08→20:38)
--- NOTE | 2019-02-21 10:31 | PN ---
Date/Time of Note Date/Time of Note DATE: 02/21/19 TIME: 10:27 Assessment/Plan VTE Prophylaxis Risk [place]from [facility] [place]0 risk: 10 SCD applied (from [facility] [place] Yes Pharmacological prophylaxis: NA/contraindicated Pharm contraindication: anticoag not tolerated Lines/Catheters IV Catheter Type (from [facility] Central Line Central line still needed: Yes Urinary Cath still in place: Yes Reason Cath still needed: urinary retention Assessment/Plan Hospital Course 1. Sepsis, Lactic acid is elevated. 2. Severe anemia 3. Chronic renal failure likely secondary to sepsis, 4. Hypertension. 5. Hyperlipidemia. 6. Hypothyroidism. 7. Normocytic normochromic chronic anemia with recent hemoglobin drop. 8. Bilateral groin cellulitis more likely associated with mateus, patches in groin and axilla bilaterally. skin peeling 9. History of rheumatoid arthritis with joint deformities. 10. Diabetes type 2. 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 Peripheral vascular disease. 13. Chronic a.fib 14. right arm edema, Us negative 15. Neoplasm per CT abdomen. 4.3 cm cystic lesion along the pancreas body, enlarged since 10/10/2012 (previously 2.4 cm). 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 16. Possible allergic skin reaction, biopsy is obtained 17. altered mental status delirium vs stroke, better 18. Hypernatremia 147 19. Eye muscle paralysis, resolved. Assessment/Plan -On high flow. 30% Igl eval. 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 is probably due to antibiotics -Off of all antibiotics -Limitations to discharge labile respiratory status with pneumonia CHF renal failure and altered mental status -he is DNR/DNI Result Diagram: 02/21/19 0645 02/21/19 0645 Results 24hrs Laboratory Tests Test 02/20/19 13:04 02/20/19 13:10 02/20/19 18:11 02/20/19 20:25 Prothrombin Time 19.0 H Prothrombin Time 1.5 Ratio INR International 1.58 Normalized Ratio Activated 28.9 Partial Thromboplast Time Bedside Glucose 241 H 250 H 239 H Test 02/21/19 01:11 02/21/19 03:47 02/21/19 05:08 02/21/19 06:45 Bedside Glucose 205 194 174 White Blood Count 10.7 # Red Blood Count 2.88 L Hemoglobin 7.9 L Hematocrit 27.2 L Mean Corpuscular 94.4 Volume Mean Corpuscular 27.4 L Hemoglobin Mean Corpuscular 29.0 L Hemoglobin Concent Red Cell 19.7 H Distribution Width Platelet Count 130 L Mean Platelet Volume 12.3 H Immature 0.500 H Granulocytes % Neutrophils % 74.8 Lymphocytes % 15.3 Monocytes % 9.3 Eosinophils % 0.1 Basophils % 0.0 Nucleated Red Blood 1.5 H Cells % Immature 0.050 H Granulocytes # Neutrophils # 8.0 H Lymphocytes # 1.6 Monocytes # 1.0 H Eosinophils # 0.0 Basophils # 0.0 Nucleated Red Blood 0.2 H Cells # Sodium Level 147 H Potassium Level 3.5 Chloride Level 113 H Carbon Dioxide Level 29 Anion Gap 5 Blood Urea Nitrogen 112 H Creatinine 1.96 H Est Glomerular Filtrat Rate mL/min Glucose Level 165 Calcium Level 7.9 L Phosphorus Level 4.0 Magnesium Level 2.3 Total Bilirubin 0.3 Direct Bilirubin 0.00 Indirect Bilirubin 0.3 Aspartate Amino 24 Transf (AST/SGOT) Alanine 50 Aminotransferase (AL T/SGPT) Alkaline Phosphatase 95 Total Protein 4.9 L Albumin 2.3 L Globulin 2.60 Albumin/Globulin 0.88 Ratio Test 02/21/19 10:18 Bedside Glucose 163 Exam/Review of Systems Exam Vitals Vital Signs Date Temp Pulse Resp B/P (MAP) Pulse Ox O2 O2 Flow FiO2 Time Delivery Rate 02/21/19 94 40 08:28 02/21/19 96 26 08:27 02/21/19 97.6 150/66 08:17 (94) 02/20/19 High Flow 03:41 Intake and Output 02/20/19 02/20/19 02/21/19 1515:00 23:00 07:00 IntakeIntake Total 1125 ml 1280 ml OutputOutput Total 700 ml 1100 ml BalanceBalance 425 ml 180 ml Exam NG tube Constitutional: alert, frail ENMT: nl external ears & nose Respiratory: crackles/rales, diminished breath sounds Cardiovascular: regular rate and rhythm Gastrointestinal: soft Extremities: edema (bilateral upper extremities) Skin: other (skin is peeling) Results Results 24hrs Laboratory Tests Test 02/20/19 13:04 02/20/19 13:10 02/20/19 18:11 02/20/19 20:25 Prothrombin Time 19.0 H Prothrombin Time 1.5 Ratio INR International 1.58 Normalized Ratio Activated 28.9 Partial Thromboplast Time Bedside Glucose 241 H 250 H 239 H Test 02/21/19 01:11 02/21/19 03:47 02/21/19 05:08 02/21/19 06:45 Bedside Glucose 205 194 174 White Blood Count 10.7 # Red Blood Count 2.88 L Hemoglobin 7.9 L Hematocrit 27.2 L Mean Corpuscular 94.4 Volume Mean Corpuscular 27.4 L Hemoglobin Mean Corpuscular 29.0 L Hemoglobin Concent Red Cell 19.7 H Distribution Width Platelet Count 130 L Mean Platelet Volume 12.3 H Immature 0.500 H Granulocytes % Neutrophils % 74.8 Lymphocytes % 15.3 Monocytes % 9.3 Eosinophils % 0.1 Basophils % 0.0 Nucleated Red Blood 1.5 H Cells % Immature 0.050 H Granulocytes # Neutrophils # 8.0 H Lymphocytes # 1.6 Monocytes # 1.0 H Eosinophils # 0.0 Basophils # 0.0 Nucleated Red Blood 0.2 H Cells # Sodium Level 147 H Potassium Level 3.5 Chloride Level 113 H Carbon Dioxide Level 29 Anion Gap 5 Blood Urea Nitrogen 112 H Creatinine 1.96 H Est Glomerular Filtrat Rate mL/min Glucose Level 165 Calcium Level 7.9 L Phosphorus Level 4.0 Magnesium Level 2.3 Total Bilirubin 0.3 Direct Bilirubin 0.00 Indirect Bilirubin 0.3 Aspartate Amino 24 Transf (AST/SGOT) Alanine 50 Aminotransferase (AL T/SGPT) Alkaline Phosphatase 95 Total Protein 4.9 L Albumin 2.3 L Globulin 2.60 Albumin/Globulin 0.88 Ratio Test 02/21/19 10:18 Bedside Glucose 163 Medications Medication Current Medications Acetaminophen (Tylenol Tab) 650 mg Q4H PRN PO PAIN Last administered on 02/11/19at 21:29; Admin Dose 650 MG; Start 01/17/19 at 18:17 Miscellaneous Information (Pending Santyl Order For Wound Care) This patient ramirez... PRN PRN XX WOUND CARE; Start 01/17/19 at 18:17 Albuterol/ Ipratropium (Duoneb) 3 ml Q2H RESP THERAPY PRN HHN SHORTNESS OF BREATH Last administered on 02/13/19at 05:52; Admin Dose 3 ML; Start 01/17/19 at 18:17 Bisacodyl (Dulcolax) 10 mg BID PRN PO CONSTIPATION; Start 01/17/19 at 18:17; Status Hold Folic Acid (Folic Acid) 1 mg DAILY PO Last administered on 02/21/19at 09:06; Admin Dose 1 MG; Start 01/17/19 at 18:17 Latanoprost (Xalatan) 1 drop HS BOTH EYES Last administered on 02/20/19at 21:00; Admin Dose 1 DROP; Start 01/17/19 at 18:17 Nitroglycerin (Nitroglycerin (Sl Tab) 0.4 Mg) 0.4 tab Q5M PRN SL CHEST PAIN; Start 01/17/19 at 18:17 IV Flush (NS 3 ml) 3 ml PER PROTOCOL IV ; Start 01/17/19 at 18:17 Glucose (Glutose) 15 gm Q15M PRN PO DECREASED GLUCOSE; Start 01/17/19 at 18:17 Glucose (Glutose) 22.5 gm Q15M PRN PO DECREASED GLUCOSE; Start 01/17/19 at 18:17 Dextrose (D50w Syringe) 25 ml Q15M PRN IV DECREASED GLUCOSE Last administered on 02/14/19at 17:23; Admin Dose 25 ML; Start 01/17/19 at 18:17 Dextrose (D50w Syringe) 50 ml Q15M PRN IV DECREASED GLUCOSE; Start 01/17/19 at 18:17 Glucagon (Glucagen) 1 mg Q15M PRN IM DECREASED GLUCOSE Last administered on 02/11/19at 17:55; Admin Dose 1 MG; Start 01/17/19 at 18:17 Glucose (Glutose) 15 gm Q15M PRN BUCCAL DECREASED GLUCOSE; Start 01/17/19 at 18:17 Bisacodyl (Dulcolax Supp) [address] CONSTIPATION; Start 01/17/19 at 18:17 Zinc Acetate/ Diphenhydramine (Benadryl 2% Cr) 1 applic Q6H PRN TOP ITCHING Last administered on 01/26/19 07:54; Admin Dose 1 APPLIC; Start 01/19/19 at 16:37 IV Flush (NS 10 ml) 10 ml PRN PRN IV IV PROTOCOL; Start 01/20/19 at 14:30 Cyanocobalamin (Vitamin B12 Inj) 1,000 mcg Q7D IM Last administered on 02/17/19 08:30; Admin Dose 1,000 MCG; Start 02/03/19 at 09:00 Metoprolol Tartrate (Lopressor) 5 mg Q4H PRN IV HR>110 Hold SBP<100; Start 01/26/19 at 14:30 Enoxaparin Sodium (Lovenox) 60 mg DAILY SC Last administered on 02/03/19 08:06; Admin Dose 60 MG; Start 01/28/19 at 09:00; Status Hold Docusate Sodium (Colace Liquid Cup) 100 mg BID NGT ; Start 01/27/19 at 22:00; Status Hold Terazosin HCl (Hytrin) 10 mg HS NGT Last administered on 02/20/19 20:54; Admin Dose 10 MG; Start 01/28/19 at 21:00 Levothyroxine Sodium (Synthroid) 125 mcg BEFORE BREAKFAST NGT Last administered on 02/21/19 05:14; Admin Dose 125 MCG; Start 01/28/19 at 07:00 Ferrous Sulfate (Feosol Liquid Cup) 300 mg WITH MEALS GTB Last administered on 02/21/19 09:05; Admin Dose 300 MG; Start 01/28/19 at 11:30 Multivitamins (Multivitamin) 30 ml DAILY GTB Last administered on 02/21/19 09:05; Admin Dose 30 ML; Start 01/28/19 at 11:00 Nystatin/ Triamcinolone Acetonide (Mycolog Oint) 1 applic BID TOP Last administered on 02/21/19 09:08; Admin Dose 1 APPLIC; Start 01/28/19 at 22:30 Insulin Aspart (Novolog Insulin Pen) NOVOLOG *MILD* ALGORI... Q4 SC Last administered on 02/21/19 10:22; Admin Dose 1 UNIT; Start 01/29/19 at 05:00 Albuterol/ Ipratropium (Duoneb) 3 ml Q6HWA RESP THERAPY HHN Last administered on 02/21/19 08:25; Admin Dose 3 ML; Start 01/29/19 at 14:00 Epoetin Dae-epbx (RETACRIT(non-esrd)) 40,000 unit Mo@1700 SC Last administered on 02/17/19 17:18; Admin Dose 40,000 UNIT; Start 02/03/19 at 17:00 Eye Lubricant (Refresh Plus) 1 drop QID BOTH EYES Last administered on 02/21/19 09:05; Admin Dose 1 DROP; Start 02/06/19 at 09:00 Eye Lubricant (Akwa Oint) 1 applic HS LEFT EYE Last administered on 02/20/19 20:49; Admin Dose 1 APPLIC; Start 02/06/19 at 21:00 Multi-Ingredient Ointment (Aquaphor Oint 52.5 Gm) 1 applic BID TOP Last administered on 02/21/19 09:07; Admin Dose 1 APPLIC; Start 02/06/19 at 22:40 Morphine Sulfate (morphine) 0.25 mg Q4H PRN IV SEVERE PAIN LEVEL 7-10 Last administered on 02/21/19 06:06; Admin Dose 0.25 MG; Start 02/15/19 at 11:00 Metoprolol Tartrate (Lopressor) 12.5 mg BID NGT Last administered on 02/21/19 09:07; Admin Dose 12.5 MG; Start 02/17/19 at 21:00 Pantoprazole (Protonix Iv) 40 mg BID@06,18 IV Last administered on 02/21/19 05:13; Admin Dose 40 MG; Start 02/19/19 at 18:00 Methylprednisolone Sodium Succinate (Solu-Medrol) 40 mg DAILY IV Last administered on 02/21/19 09:05; Admin Dose 40 MG; Start 02/21/19 at 09:00 Insulin Glargine (Lantus) 12 units DAILY@2000 SC Last administered on 02/20/19 21:00; Admin Dose 12 UNITS; Start 02/20/19 at 20:00 COOPER CARO February 21, 2019 10:31
--- NOTE | 2019-02-21 10:45 | CONS ---
Assessment/Plan Assessment/Plan Hospital Course (Demo Recall) 88 yo male with multiple medical problems including DM, CRF, RA, PVD and chronic afib on Eliquis who presented to [facility] 01/05/19 with severe normocytic anemia and Hg ~7. 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 # Anemia-normocytic -Hg stable around 7. 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 Elevated Methylmalonic acid level noted -s/p IV iron. will recheck iron panel at this time -continue vitamin b12 weekly as vitamin b12 was low normal and methylmalonic acid was elevated. Continue folate as well. -No evidence of hemolysis at this time. -Transfuse to keep Hgb > 7. 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 -This may be a pseudocyst or a precancerous pancreatic lesion. -It has been growing in size but patient is asymptomatic. EUS with biopsy is recommended and can either be done inpatient or outpatient setting. -The patient at this time is unlikely a candidate for a whipple surgery however. Thank you to Dr. Alatorre for allowing [facility] to participate in the care of this patient. A total of 40 minutes was spent in consultation with this patient and all his questions were answered. Consultation Date/Type/Reason Admit Date/Time Jan 17, 2019 at 15:58 Initial Consult Date 01/18/19 Type of Consult hematology Reason for Consultation anemia Requesting Provider: IVAN AKHTAR MD Date/Time of Note DATE: 02/21/19 TIME: 10:43 24 HR Interval Summary Free Text/Dictation no acute overnight events Exam/Review of Systems Exam Vitals Vital Signs Date Temp Pulse Resp B/P (MAP) Pulse Ox O2 O2 Flow FiO2 Time Delivery Rate 02/21/19 94 40 08:28 02/21/19 96 26 08:27 02/21/19 97.6 150/66 08:17 (94) 02/20/19 High Flow 03:41 Intake and Output 02/20/19 02/20/19 02/21/19 1515:00 23:00 07:00 IntakeIntake Total 1125 ml 1280 ml OutputOutput Total 700 ml 1100 ml BalanceBalance 425 ml 180 ml Psych: no complaints Head: normocephalic Eyes: nl conjunctiva ENMT: nl external ears & nose Neck: supple Respiratory: clear to auscultation Cardiovascular: regular rate and rhythm Gastrointestinal: soft Musculoskeletal: nl extremities to inspection Extremities: normal pulses Results Result Diagram: 02/21/19 0645 02/21/19 0645 Results 24hrs Laboratory Tests Test 02/20/19 13:04 02/20/19 13:10 02/20/19 18:11 02/20/19 20:25 Prothrombin Time 19.0 H Prothrombin Time 1.5 Ratio INR International 1.58 Normalized Ratio Activated 28.9 Partial Thromboplast Time Bedside Glucose 241 H 250 H 239 H Test 02/21/19 01:11 02/21/19 03:47 02/21/19 05:08 02/21/19 06:45 Bedside Glucose 205 194 174 White Blood Count 10.7 # Red Blood Count 2.88 L Hemoglobin 7.9 L Hematocrit 27.2 L Mean Corpuscular 94.4 Volume Mean Corpuscular 27.4 L Hemoglobin Mean Corpuscular 29.0 L Hemoglobin Concent Red Cell 19.7 H Distribution Width Platelet Count 130 L Mean Platelet Volume 12.3 H Immature 0.500 H Granulocytes % Neutrophils % 74.8 Lymphocytes % 15.3 Monocytes % 9.3 Eosinophils % 0.1 Basophils % 0.0 Nucleated Red Blood 1.5 H Cells % Immature 0.050 H Granulocytes # Neutrophils # 8.0 H Lymphocytes # 1.6 Monocytes # 1.0 H Eosinophils # 0.0 Basophils # 0.0 Nucleated Red Blood 0.2 H Cells # Sodium Level 147 H Potassium Level 3.5 Chloride Level 113 H Carbon Dioxide Level 29 Anion Gap 5 Blood Urea Nitrogen 112 H Creatinine 1.96 H Est Glomerular Filtrat Rate mL/min Glucose Level 165 Calcium Level 7.9 L Phosphorus Level 4.0 Magnesium Level 2.3 Total Bilirubin 0.3 Direct Bilirubin 0.00 Indirect Bilirubin 0.3 Aspartate Amino 24 Transf (AST/SGOT) Alanine 50 Aminotransferase (AL T/SGPT) Alkaline Phosphatase 95 Total Protein 4.9 L Albumin 2.3 L Globulin 2.60 Albumin/Globulin 0.88 Ratio Test 02/21/19 10:18 Bedside Glucose 163 Medications Medication Current Medications Acetaminophen (Tylenol Tab) 650 mg Q4H PRN PO PAIN Last administered on at 21:29; Admin Dose 650 MG; Start 01/17/19 at 18:17 Miscellaneous Information (Pending Santyl Order For Wound Care) This patient ramirez... PRN PRN XX WOUND CARE; Start 01/17/19 at 18:17 Albuterol/ Ipratropium (Duoneb) 3 ml Q2H RESP THERAPY PRN HHN SHORTNESS OF BREATH Last administered on 02/13/19at 05:52; Admin Dose 3 ML; Start 01/17/19 at 18:17 Bisacodyl (Dulcolax) 10 mg BID PRN PO CONSTIPATION; Start 01/17/19 at 18:17; Status Hold Folic Acid (Folic Acid) 1 mg DAILY PO Last administered on 02/21/19at 09:06; Admin Dose 1 MG; Start 01/17/19 at 18:17 Latanoprost (Xalatan) 1 drop HS BOTH EYES Last administered on 02/20/19at 21:00; Admin Dose 1 DROP; Start 01/17/19 at 18:17 Nitroglycerin (Nitroglycerin (Sl Tab) 0.4 Mg) 0.4 tab Q5M PRN SL CHEST PAIN; Start 01/17/19 at 18:17 IV Flush (NS 3 ml) 3 ml PER PROTOCOL IV ; Start 01/17/19 at 18:17 Glucose (Glutose) 15 gm Q15M PRN PO DECREASED GLUCOSE; Start 01/17/19 at 18:17 Glucose (Glutose) 22.5 gm Q15M PRN PO DECREASED GLUCOSE; Start 01/17/19 at 18:17 Dextrose (D50w Syringe) 25 ml Q15M PRN IV DECREASED GLUCOSE Last administered on 02/14/19at 17:23; Admin Dose 25 ML; Start 01/17/19 at 18:17 Dextrose (D50w Syringe) 50 ml Q15M PRN IV DECREASED GLUCOSE; Start 01/17/19 at 18:17 Glucagon (Glucagen) 1 mg Q15M PRN IM DECREASED GLUCOSE Last administered on 02/11/19at 17:55; Admin Dose 1 MG; Start 01/17/19 at 18:17 Glucose (Glutose) 15 gm Q15M PRN BUCCAL DECREASED GLUCOSE; Start 01/17/19 at 18:17 Bisacodyl (Dulcolax Supp) 10 mg DAILY PRN NC CONSTIPATION; Start 01/17/19 at 18:17 Zinc Acetate/ Diphenhydramine (Benadryl 2% Cr) 1 applic Q6H PRN TOP ITCHING Last administered on 01/26/19 07:54; Admin Dose 1 APPLIC; Start 01/19/19 at 16:37 IV Flush (NS 10 ml) 10 ml PRN PRN IV IV PROTOCOL; Start 01/20/19 at 14:30 Cyanocobalamin (Vitamin B12 Inj) 1,000 mcg Q7D IM Last administered on 02/17/19 08:30; Admin Dose 1,000 MCG; Start 02/03/19 at 09:00 Metoprolol Tartrate (Lopressor) 5 mg Q4H PRN IV HR>110 Hold SBP<100; Start 01/26/19 at 14:30 Enoxaparin Sodium (Lovenox) 60 mg DAILY SC Last administered on 02/03/19 08:06; Admin Dose 60 MG; Start 01/28/19 at 09:00; Status Hold Docusate Sodium (Colace Liquid Cup) 100 mg BID NGT ; Start 01/27/19 at 22:00; Status Hold Terazosin HCl (Hytrin) 10 mg HS NGT Last administered on 02/20/19 20:54; Admin Dose 10 MG; Start 01/28/19 at 21:00 Levothyroxine Sodium (Synthroid) 125 mcg BEFORE BREAKFAST NGT Last administered on 02/21/19 05:14; Admin Dose 125 MCG; Start 01/28/19 at 07:00 Ferrous Sulfate (Feosol Liquid Cup) 300 mg WITH MEALS GTB Last administered on 02/21/19 09:05; Admin Dose 300 MG; Start 01/28/19 at 11:30 Multivitamins (Multivitamin) 30 ml DAILY GTB Last administered on 02/21/19 09:05; Admin Dose 30 ML; Start 01/28/19 at 11:00 Nystatin/ Triamcinolone Acetonide (Mycolog Oint) 1 applic BID TOP Last administered on 02/21/19 09:08; Admin Dose 1 APPLIC; Start 01/28/19 at 22:30 Insulin Aspart (Novolog Insulin Pen) NOVOLOG *MILD* ALGORI... Q4 SC Last administered on 02/21/19 10:22; Admin Dose 1 UNIT; Start 01/29/19 at 05:00 Albuterol/ Ipratropium (Duoneb) 3 ml Q6HWA RESP THERAPY HHN Last administered on 02/21/19 08:25; Admin Dose 3 ML; Start 01/29/19 at 14:00 Epoetin Dae-epbx (RETACRIT(non-esrd)) 40,000 unit Mo@1700 SC Last administered on 02/17/19 17:18; Admin Dose 40,000 UNIT; Start 02/03/19 at 17:00 Eye Lubricant (Refresh Plus) 1 drop QID BOTH EYES Last administered on 02/21/19 09:05; Admin Dose 1 DROP; Start 02/06/19 at 09:00 Eye Lubricant (Akwa Oint) 1 applic HS LEFT EYE Last administered on 02/20/19 20:49; Admin Dose 1 APPLIC; Start 02/06/19 at 21:00 Multi-Ingredient Ointment (Aquaphor Oint 52.5 Gm) 1 applic BID TOP Last administered on 02/21/19 09:07; Admin Dose 1 APPLIC; Start 02/06/19 at 22:40 Morphine Sulfate (morphine) 0.25 mg Q4H PRN IV SEVERE PAIN LEVEL 7-10 Last administered on 02/21/19 06:06; Admin Dose 0.25 MG; Start 02/15/19 at 11:00 Metoprolol Tartrate (Lopressor) 12.5 mg BID NGT Last administered on 02/21/19 09:07; Admin Dose 12.5 MG; Start 02/17/19 at 21:00 Pantoprazole (Protonix Iv) 40 mg BID@,18 IV Last administered on 02/21/19 05:13; Admin Dose 40 MG; Start 02/19/19 at 18:00 Methylprednisolone Sodium Succinate (Solu-Medrol) 40 mg DAILY IV Last administered on 02/21/19 09:05; Admin Dose 40 MG; Start 02/21/19 at 09:00 Insulin Glargine (Lantus) 12 units DAILY@2000 SC Last administered on 02/20/19at 21:00; Admin Dose 12 UNITS; Start 02/20/19 at 20:00 OREN MARSH M.D. February 21, 2019 10:45
[2019-02-21] MEDS ORDERED: FUROSEMIDE 40 MG INJ IV STA (13:20)
--- NOTE | 2019-02-21 13:26 | CONS ---
Assessment/Plan Assessment/Plan Assessment/Plan (Recall) 88 yo M with multiple comorbidities who initially presented for evaluation of hiccups. He was noted to become acutely altered... for which neurology is consulted. He has been transferred to the ICU on several occasions due to ams in the context of respiratory distress and ? seizures.. On 02/14, he was transferred to the ICU for hypotension. The clinical picture suggests an acute toxic-metabolic encephalopathy.. Meningoencephalitis is, though, not entirely excluded. MRI brain is without acute ischemia, though notable for chronic infarcts. EEG was without ongoing epileptiform activity LP for CSF valuation was declined by medical decision makers. P: OK to Cont Keppra 500 BID for now Ativan IV PRN prolonged seizure (> 5 min) Agree w/ ASA/Lipitor daily pending the above Limit sedating medications where possible Other medical management per primary Will follow clinically Consultation Date/Type/Reason Admit Date/Time Jan 17, 2019 at 15:58 Type of Consult Neurology Requesting Provider: IVAN AKHTAR MD Date/Time of Note DATE: 02/21/19 TIME: 13:25 24 HR Interval Summary Free Text/Dictation Continues acute care. Exam/Review of Systems Exam Vitals Vital Signs Date Temp Pulse Resp B/P (MAP) Pulse Ox O2 O2 Flow FiO2 Time Delivery Rate 02/21/19 97.7 70 17 123/58 88 11:33 (79) 02/21/19 50 11:13 02/20/19 High Flow 03:41 Intake and Output 02/20/19 02/20/19 02/21/19 1515:00 23:00 07:00 IntakeIntake Total 1125 ml 1280 ml OutputOutput Total 700 ml 1100 ml BalanceBalance 425 ml 180 ml Exam PE: Gen Appearance: No Apparent Distress HEENT: Normocephalic; on hi flow nasal cannula Cardiovascular: Regular rate Abdomen: Soft Extremities: Dry. NE: The patient was obtunded and nonverbal. Opens eyes briefly to voice. Cranial nerve examination was limited by mental status. Pupils were equal and reactive to light. There was no afferent pupillary defect. Funduscopic examination was limited. Face was grossly symmetric. Tone was normal. Muscle bulk was normal. I did not see fasciculations. The patient withdrew his extremities to noxious stimuli. Coordination and gait testing was limited by mental status. Arm and leg reflexes were within normal limits and symmetric. Gray's sign was absent. Plantar responses were flexor. Results Result Diagram: 02/21/19 0645 02/21/19 0645 Results 24hrs Laboratory Tests Test 02/20/19 18:11 02/20/19 20:25 02/21/19 01:11 02/21/19 03:47 Bedside Glucose 250 H 239 H 205 194 Test 02/21/19 05:08 02/21/19 06:45 02/21/19 10:18 Bedside Glucose 174 163 White Blood Count 10.7 # Red Blood Count 2.88 L Hemoglobin 7.9 L Hematocrit 27.2 L Mean Corpuscular 94.4 Volume Mean Corpuscular 27.4 L Hemoglobin Mean Corpuscular 29.0 L Hemoglobin Concent Red Cell 19.7 H Distribution Width Platelet Count 130 L Mean Platelet Volume 12.3 H Immature 0.500 H Granulocytes % Neutrophils % 74.8 Lymphocytes % 15.3 Monocytes % 9.3 Eosinophils % 0.1 Basophils % 0.0 Nucleated Red Blood 1.5 H Cells % Immature 0.050 H Granulocytes # Neutrophils # 8.0 H Lymphocytes # 1.6 Monocytes # 1.0 H Eosinophils # 0.0 Basophils # 0.0 Nucleated Red Blood 0.2 H Cells # Sodium Level 147 H Potassium Level 3.5 Chloride Level 113 H Carbon Dioxide Level 29 Anion Gap 5 Blood Urea Nitrogen 112 H Creatinine 1.96 H Est Glomerular Filtrat Rate mL/min Glucose Level 165 Calcium Level 7.9 L Phosphorus Level 4.0 Magnesium Level 2.3 Total Bilirubin 0.3 Direct Bilirubin 0.00 Indirect Bilirubin 0.3 Aspartate Amino 24 Transf (AST/SGOT) Alanine 50 Aminotransferase (AL T/SGPT) Alkaline Phosphatase 95 Total Protein 4.9 L Albumin 2.3 L Globulin 2.60 Albumin/Globulin 0.88 Ratio Medications Medication Current Medications Acetaminophen (Tylenol Tab) 650 mg Q4H PRN PO PAIN Last administered on 02/11/19at 21:29; Admin Dose 650 MG; Start 01/17/19 at 18:17 Miscellaneous Information ([facility]) This patient ramirez... PRN PRN XX WOUND CARE; Start 01/17/19 at 18:17 Albuterol/ Ipratropium (Duoneb) 3 ml Q2H RESP THERAPY PRN HHN SHORTNESS OF BREATH Last administered on 02/13/19at 05:52; Admin Dose 3 ML; Start 01/17/19 at 18:17 Bisacodyl (Dulcolax) 10 mg BID PRN PO CONSTIPATION; Start 01/17/19 at 18:17; Status Hold Folic Acid (Folic Acid) 1 mg DAILY PO Last administered on 02/21/19at 09:06; Admin Dose 1 MG; Start 01/17/19 at 18:17 Latanoprost (Xalatan) 1 drop HS BOTH EYES Last administered on 02/20/19at 21:00; Admin Dose 1 DROP; Start 01/17/19 at 18:17 Nitroglycerin (Nitroglycerin (Sl Tab) 0.4 Mg) 0.4 tab Q5M PRN SL CHEST PAIN; Start 01/17/19 at 18:17 IV Flush (NS 3 ml) 3 ml PER PROTOCOL IV ; Start 01/17/19 at 18:17 Glucose (Glutose) 15 gm Q15M PRN PO DECREASED GLUCOSE; Start 01/17/19 at 18:17 Glucose (Glutose) 22.5 gm Q15M PRN PO DECREASED GLUCOSE; Start 01/17/19 at 18:17 Dextrose (D50w Syringe) 25 ml Q15M PRN IV DECREASED GLUCOSE Last administered on 02/14/19at 17:23; Admin Dose 25 ML; Start 01/17/19 at 18:17 Dextrose (D50w Syringe) 50 ml Q15M PRN IV DECREASED GLUCOSE; Start 01/17/19 at 18:17 Glucagon (Glucagen) 1 mg Q15M PRN IM DECREASED GLUCOSE Last administered on 02/11/19at 17:55; Admin Dose 1 MG; Start 01/17/19 at 18:17 Glucose (Glutose) 15 gm Q15M PRN BUCCAL DECREASED GLUCOSE; Start 01/17/19 at 18:17 Bisacodyl (Dulcolax Supp) 10 mg DAILY PRN CA CONSTIPATION; Start 01/17/19 at 18:17 Zinc Acetate/ Diphenhydramine (Benadryl 2% Cr) 1 applic Q6H PRN TOP ITCHING Last administered on 01/26/19at 07:54; Admin Dose 1 APPLIC; Start 01/19/19 at 16:37 IV Flush (NS 10 ml) 10 ml PRN PRN IV IV PROTOCOL; Start 01/20/19 at 14:30 Cyanocobalamin (Vitamin B12 Inj) 1,000 mcg Q7D IM Last administered on 02/17/19 08:30; Admin Dose 1,000 MCG; Start 02/03/19 at 09:00 Metoprolol Tartrate (Lopressor) 5 mg Q4H PRN IV HR>110 Hold SBP<100; Start 01/26/19 at 14:30 Enoxaparin Sodium (Lovenox) 60 mg DAILY SC Last administered on 02/03/19 0 8:06; Admin Dose 60 MG; Start 01/28/19 at 09:00; Status Hold Docusate Sodium (Colace Liquid Cup) 100 mg BID NGT ; Start 01/27/19 at 22:00; Status Hold Terazosin HCl (Hytrin) 10 mg HS NGT Last administered on 02/20/19 20:54; Admin Dose 10 MG; Start 01/28/19 at 21:00 Levothyroxine Sodium (Synthroid) 125 mcg BEFORE BREAKFAST NGT Last administered on 02/21/19 05:14; Admin Dose 125 MCG; Start 01/28/19 at 07:00 Ferrous Sulfate (Feosol Liquid Cup) 300 mg WITH MEALS GTB Last administered on 02/21/19 12:30; Admin Dose 300 MG; Start 01/28/19 at 11:30 Multivitamins (Multivitamin) 30 ml DAILY GTB Last administered on 02/21/19 09:05; Admin Dose 30 ML; Start 01/28/19 at 11:00 Nystatin/ Triamcinolone Acetonide (Mycolog Oint) 1 applic BID TOP Last administered on 02/21/19 09:08; Admin Dose 1 APPLIC; Start 01/28/19 at 22:30 Insulin Aspart (Novolog Insulin Pen) NOVOLOG *MILD* ALGORI... Q4 SC Last administered on 02/21/19 10:22; Admin Dose 1 UNIT; Start 01/29/19 at 05:00 Albuterol/ Ipratropium (Duoneb) 3 ml Q6HWA RESP THERAPY HHN Last administered on 02/21/19 08:25; Admin Dose 3 ML; Start 01/29/19 at 14:00 Epoetin Dae-epbx (RETACRIT(non-esrd)) 40,000 unit Mo@1700 SC Last administered on 02/17/19 17:18; Admin Dose 40,000 UNIT; Start 02/03/19 at 17:00 Eye Lubricant (Refresh Plus) 1 drop QID BOTH EYES Last administered on 02/21/19 12:32; Admin Dose 1 DROP; Start 02/06/19 at 09:00 Eye Lubricant (Akwa Oint) 1 applic HS LEFT EYE Last administered on 02/20/19 20:49; Admin Dose 1 APPLIC; Start 02/06/19 at 21:00 Multi-Ingredient Ointment (Aquaphor Oint 52.5 Gm) 1 applic BID TOP Last administered on 02/21/19 09:07; Admin Dose 1 APPLIC; Start 02/06/19 at 22:40 Morphine Sulfate (morphine) 0.25 mg Q4H PRN IV SEVERE PAIN LEVEL 7-10 Last administered on 02/21/19 06:06; Admin Dose 0.25 MG; Start 02/15/19 at 11:00 Metoprolol Tartrate (Lopressor) 12.5 mg BID NGT Last administered on 02/21/19 09:07; Admin Dose 12.5 MG; Start 02/17/19 at 21:00 Pantoprazole (Protonix Iv) 40 mg BID@06,18 IV Last administered on 02/21/19 05:13; Admin Dose 40 MG; Start 02/19/19 at 18:00 Methylprednisolone Sodium Succinate (Solu-Medrol) 40 mg DAILY IV Last administered on 02/21/19 09:05; Admin Dose 40 MG; Start 02/21/19 at 09:00 Insulin Glargine (Lantus) 12 units DAILY@2000 SC Last administered on 02/20/19 21:00; Admin Dose 12 UNITS; Start 02/20/19 at 20:00 NEGRA CORONA NP February 21, 2019 13:26
--- NOTE | 2019-02-21 13:32 | CONS ---
Assessment/Plan Assessment/Plan Hospital Course (Demo Recall) No acute events, looks comfortable, no fevers Antimicrobials: none Indwelling: Left subclavian triple-lumen catheter, Wade catheter, NG tube Allergy: Penicillin, sulfa Physical examination: Obese well-developed chronically ill-appearing - [place] man who is lethargic, in no distress. Head atraumatic normocephalic sclera nonicteric. Neck is supple chest rise symmetrical breath sounds diminished bases. Heart: S1-S2. Abdomen obese soft bowel sounds present extremities without cyanosis, bilateral edema Assessment: 1. S/p sepsis with shock 2. Acute hypoxemic respiratory failure, likely ongoing aspiration 2. Acute encephalopathy 3. Seizures 4. Healthcare acquired pneumonia==> treated 5. Coronary artery disease/history of CABG 6. Advanced rheumatoid arthritis 5. Chronic atrial fibrillation 6. Diabetes 7. BPH 9. Acute on chronic anemia===> s/p EGD/colonoscopy 01/09/19 10. Status post right epididymitis 11. Pancreatic lesion per CT, unlikely neoplasm per oncology notes 12. 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 Skin lesions, s/p punch bx, pathology consistent with allergic reaction 14. DNR/DNI Plan: Remains unchanged, completed antibiotics, continue present care, repeat cx's prn, overall prognosis poor Consultation Date/Type/Reason Admit Date/Time Jan 17, 2019 at 15:58 Initial Consult Date 01/18/19 Type of Consult id Requesting Provider: IVAN AKHTAR MD Date/Time of Note DATE: 02/21/19 TIME: 13:31 Exam/Review of Systems Exam Vitals Vital Signs Date Temp Pulse Resp B/P (MAP) Pulse Ox O2 O2 Flow FiO2 Time Delivery Rate 02/21/19 97.7 70 17 123/58 88 11:33 (79) 02/21/19 50 11:13 02/20/19 High Flow 03:41 Intake and Output 02/20/19 02/20/19 02/21/19 1515:00 23:00 07:00 IntakeIntake Total 1125 ml 1280 ml OutputOutput Total 700 ml 1100 ml BalanceBalance 425 ml 180 ml Results Result Diagram: 02/21/19 0645 02/21/19 0645 Results 24hrs Laboratory Tests Test 02/20/19 18:11 02/20/19 20:25 02/21/19 01:11 02/21/19 03:47 Bedside Glucose 250 H 239 H 205 194 Test 02/21/19 05:08 02/21/19 06:45 02/21/19 10:18 Bedside Glucose 174 163 White Blood Count 10.7 # Red Blood Count 2.88 L Hemoglobin 7.9 L Hematocrit 27.2 L Mean Corpuscular 94.4 Volume Mean Corpuscular 27.4 L Hemoglobin Mean Corpuscular 29.0 L Hemoglobin Concent Red Cell 19.7 H Distribution Width Platelet Count 130 L Mean Platelet Volume 12.3 H Immature 0.500 H Granulocytes % Neutrophils % 74.8 Lymphocytes % 15.3 Monocytes % 9.3 Eosinophils % 0.1 Basophils % 0.0 Nucleated Red Blood 1.5 H Cells % Immature 0.050 H Granulocytes # Neutrophils # 8.0 H Lymphocytes # 1.6 Monocytes # 1.0 H Eosinophils # 0.0 Basophils # 0.0 Nucleated Red Blood 0.2 H Cells # Sodium Level 147 H Potassium Level 3.5 Chloride Level 113 H Carbon Dioxide Level 29 Anion Gap 5 Blood Urea Nitrogen 112 H Creatinine 1.96 H Est Glomerular Filtrat Rate mL/min Glucose Level 165 Calcium Level 7.9 L Phosphorus Level 4.0 Magnesium Level 2.3 Total Bilirubin 0.3 Direct Bilirubin 0.00 Indirect Bilirubin 0.3 Aspartate Amino 24 Transf (AST/SGOT) Alanine 50 Aminotransferase (AL T/SGPT) Alkaline Phosphatase 95 Total Protein 4.9 L Albumin 2.3 L Globulin 2.60 Albumin/Globulin 0.88 Ratio Medications Medication Current Medications Acetaminophen (Tylenol Tab) 650 mg Q4H PRN PO PAIN Last administered on 02/11/19at 21:29; Admin Dose 650 MG; Start 01/17/19 at 18:17 Miscellaneous Information (Pending [facility]) This patient ramirez... PRN PRN XX WOUND CARE; Start 01/17/19 at 18:17 Albuterol/ Ipratropium (Duoneb) 3 ml Q2H RESP THERAPY PRN HHN SHORTNESS OF BREATH Last administered on 02/13/19at 05:52; Admin Dose 3 ML; Start 01/17/19 at 18:17 Bisacodyl (Dulcolax) 10 mg BID PRN PO CONSTIPATION; Start 01/17/19 at 18:17; Status Hold Folic Acid (Folic Acid) 1 mg DAILY PO Last administered on 02/21/19at 09:06; Admin Dose 1 MG; Start 01/17/19 at 18:17 Latanoprost (Xalatan) 1 drop HS BOTH EYES Last administered on 02/20/19at 21:00; Admin Dose 1 DROP; Start 01/17/19 at 18:17 Nitroglycerin (Nitroglycerin (Sl Tab) 0.4 Mg) 0.4 tab Q5M PRN SL CHEST PAIN; Start 01/17/19 at 18:17 IV Flush (NS 3 ml) 3 ml PER PROTOCOL IV ; Start 01/17/19 at 18:17 Glucose (Glutose) 15 gm Q15M PRN PO DECREASED GLUCOSE; Start 01/17/19 at 18:17 Glucose (Glutose) 22.5 gm Q15M PRN PO DECREASED GLUCOSE; Start 01/17/19 at 18:17 Dextrose (D50w Syringe) 25 ml Q15M PRN IV DECREASED GLUCOSE Last administered on 02/14/19at 17:23; Admin Dose 25 ML; Start 01/17/19 at 18:17 Dextrose (D50w Syringe) 50 ml Q15M PRN IV DECREASED GLUCOSE; Start 01/17/19 at 18:17 Glucagon (Glucagen) 1 mg Q15M PRN IM DECREASED GLUCOSE Last administered on 02/11/19at 17:55; Admin Dose 1 MG; Start 01/17/19 at 18:17 Glucose (Glutose) 15 gm Q15M PRN BUCCAL DECREASED GLUCOSE; Start 01/17/19 at 18:17 Bisacodyl (Dulcolax Supp) 10 mg DAILY PRN [place] CONSTIPATION; Start 01/17/19 at 18:17 Zinc Acetate/ Diphenhydramine (Benadryl 2% Cr) 1 applic Q6H PRN TOP ITCHING Last administered on 01/26/19at 07:54; Admin Dose 1 APPLIC; Start 01/19/19 at 16:37 IV Flush (NS 10 ml) 10 ml PRN PRN IV IV PROTOCOL; Start 01/20/19 at 14:30 Cyanocobalamin (Vitamin B12 Inj) 1,000 mcg Q7D IM Last administered on 01/23 08:30; Admin Dose 1,000 MCG; Start 02/03/19 at 09:00 Metoprolol Tartrate (Lopressor) 5 mg Q4H PRN IV HR>110 Hold SBP<100; Start 01/26/19 at 14:30 Enoxaparin Sodium (Lovenox) 60 mg DAILY SC Last administered on 02/03/19 08:06; Admin Dose 60 MG; Start 01/28/19 at 09:00; Status Hold Docusate Sodium (Colace Liquid Cup) 100 mg BID NGT ; Start 01/27/19 at 22:00; Status Hold Terazosin HCl (Hytrin) 10 mg HS NGT Last administered on 02/20/19 20:54; Admin Dose 10 MG; Start 01/28/19 at 21:00 Levothyroxine Sodium (Synthroid) 125 mcg BEFORE BREAKFAST NGT Last administered on 02/21/19 05:14; Admin Dose 125 MCG; Start 01/28/19 at 07:00 Ferrous Sulfate (Feosol Liquid Cup) 300 mg WITH MEALS GTB Last administered on 02/21/19 12:30; Admin Dose 300 MG; Start 01/28/19 at 11:30 Multivitamins (Multivitamin) 30 ml DAILY GTB Last administered on 02/21/19 09:05; Admin Dose 30 ML; Start 01/28/19 at 11:00 Nystatin/ Triamcinolone Acetonide (Mycolog Oint) 1 applic BID TOP Last administered on 02/21/19 09:08; Admin Dose 1 APPLIC; Start 01/28/19 at 22:30 Insulin Aspart (Novolog Insulin Pen) NOVOLOG *MILD* ALGORI... Q4 SC Last administered on 02/21/19 10:22; Admin Dose 1 UNIT; Start 01/29/19 at 05:00 Albuterol/ Ipratropium (Duoneb) 3 ml Q6HWA RESP THERAPY HHN Last administered on 02/21/19 08:25; Admin Dose 3 ML; Start 01/29/19 at 14:00 Epoetin Dae-epbx (RETACRIT(non-esrd)) 40,000 unit Mo@1700 SC Last administered on 02/17/19 17:18; Admin Dose 40,000 UNIT; Start 02/03/19 at 17:00 Eye Lubricant (Refresh Plus) 1 drop QID BOTH EYES Last administered on 02/21/19 12:32; Admin Dose 1 DROP; Start 02/06/19 at 09:00 Eye Lubricant (Akwa Oint) 1 applic HS LEFT EYE Last administered on 02/20/19 20:49; Admin Dose 1 APPLIC; Start 02/06/19 at 21:00 Multi-Ingredient Ointment (Aquaphor Oint 52.5 Gm) 1 applic BID TOP Last administered on 02/21/19 09:07; Admin Dose 1 APPLIC; Start 02/06/19 at 22:40 Morphine Sulfate (morphine) 0.25 mg Q4H PRN IV SEVERE PAIN LEVEL 7-10 Last administered on 02/21/19 06:06; Admin Dose 0.25 MG; Start 02/15/19 at 11:00 Metoprolol Tartrate (Lopressor) 12.5 mg BID NGT Last administered on 02/21/19 09:07; Admin Dose 12.5 MG; Start 02/17/19 at 21:00 Pantoprazole (Protonix Iv) 40 mg BID@06,18 IV Last administered on 02/21/19 05:13; Admin Dose 40 MG; Start 02/19/19 at 18:00 Methylprednisolone Sodium Succinate (Solu-Medrol) 40 mg DAILY IV Last administered on 02/21/19 09:05; Admin Dose 40 MG; Start 02/21/19 at 09:00 Insulin Glargine (Lantus) 12 units DAILY@2000 SC Last administered on 02/20/19 21:00; Admin Dose 12 UNITS; Start 02/20/19 at 20:00 LUCIAN HARKINS NP February 21, 2019 13:32
--- NOTE | 2019-02-21 14:41 | CONS ---
Consult Date/Type/Reason Admit Date/Time Jan 17, 2019 at 15:58 Initial Consult Date 01/18/19 Type of Consult Pulmonary Requesting Provider: IVAN AKHTAR MD Date/Time of Note DATE: 02/21/19 TIME: 14:39 Subjective Worsening respiratory distress now requiring bilevel ventilation. Objective Vital Signs Date Temp Pulse Resp B/P (MAP) Pulse Ox O2 O2 Flow FiO2 Time Delivery Rate 02/21/19 72 30 92 50 13:54 02/21/19 97.7 123/58 11:33 (79) 02/20/19 High Flow 03:41 Intake and Output 02/20/19 02/20/19 02/21/19 1515:00 23:00 07:00 IntakeIntake Total 1125 ml 1280 ml OutputOutput Total 700 ml 1100 ml BalanceBalance 425 ml 180 ml Exam GENERAL: Elderly appearing gentleman on nasal cannula O2 nasogastric tube in place VITAL SIGNS: per chart NECK: Supple. No JVD or lymphadenopathy. CARDIAC EXAM: S1, S2. Early systolic ejection murmur. CHEST: Diminished air entry bilaterally ABDOMEN: Soft, nontender. No guarding or rebound. EXTREMITIES: No cyanosis, clubbing or edema. NEUROLOGIC: Generalized weakness. Vent Setting Ventilator Support Mode: AC Fraction of Inspired Oxygen pe: 50 Positive End Expiratory Pressu: 5.0 Results/Medications Result Diagram: 02/21/19 0645 02/21/19 0645 Results 24 hrs Laboratory Tests Test 02/20/19 18:11 02/20/19 20:25 02/21/19 01:11 02/21/19 03:47 Bedside Glucose 250 H 239 H 205 194 Test 02/21/19 05:08 02/21/19 06:45 02/21/19 10:18 02/21/19 13:20 Bedside Glucose 174 163 White Blood Count 10.7 # Red Blood Count 2.88 L Hemoglobin 7.9 L Hematocrit 27.2 L Mean Corpuscular 94.4 Volume Mean Corpuscular 27.4 L Hemoglobin Mean Corpuscular 29.0 L Hemoglobin Concen t Red Cell 19.7 H Distribution Width Platelet Count 130 L Mean Platelet 12.3 H Volume Immature 0.500 H Granulocytes % Neutrophils % 74.8 Lymphocytes % 15.3 Monocytes % 9.3 Eosinophils % 0.1 Basophils % 0.0 Nucleated Red 1.5 H Blood Cells % Immature 0.050 H Granulocytes # Neutrophils # 8.0 H Lymphocytes # 1.6 Monocytes # 1.0 H Eosinophils # 0.0 Basophils # 0.0 Nucleated Red 0.2 H Blood Cells # Sodium Level 147 H Potassium Level 3.5 Chloride Level 113 H Carbon Dioxide 29 Level Anion Gap 5 Blood Urea 112 H Nitrogen Creatinine 1.96 H Est Glomerular Filtrat Rate mL/min Glucose Level 165 Calcium Level 7.9 L Phosphorus Level 4.0 Magnesium Level 2.3 Total Bilirubin 0.3 Direct Bilirubin 0.00 Indirect 0.3 Bilirubin Aspartate Amino 24 Transf (AST/SGOT) Alanine 50 Aminotransferase (ALT/SGPT) Alkaline 95 Phosphatase Total Protein 4.9 L Albumin 2.3 L Globulin 2.60 Albumin/Globulin 0.88 Ratio Blood Gas Blood arterial Specimen Source Arterial Blood 02/21/2019 1:43:0 Date Drawn 7 PM Arterial Blood pH 7.291 *L (Temp corrected) Arterial Blood 57.8 H pCO2 (Temp correct) Arterial Blood 55.5 L pO2 (Temp corrected) Arterial Blood 27.2 H HCO3 Arterial Blood 0.1 Base Excess Arterial Blood 86.4 L Oxygen Saturation Manuel Test ACCEPTAB Arterial Blood Right Radial Gas Puncture Site Arterial 1.0 Blood Carboxyhemo globin Arterial Blood 0.4 Methemoglobin Blood Gas A-a O2 236.0 H Differential Oxyhemoglobin 85.2 L Percent Blood Gas 37.0 Temperature Blood Gas HFNC Modality FiO2 50.0 Blood Gas CORINNE WONG Critical Value Read Back Blood Gas TM Notified Whom Blood Gas 02/21/2019 1:58:2 Notified Time 8 PM Test 02/21/19 13:27 Bedside Glucose 194 Medications Current Medications Acetaminophen (Tylenol Tab) 650 mg Q4H PRN PO PAIN Last administered on 02/11/19at 21:29; Admin Dose 650 MG; Start 01/17/19 at 18:17 Miscellaneous Information (Pending [facility] Order For Wound Care) This patient ramirez... PRN PRN XX WOUND CARE; Start 01/17/19 at 18:17 Albuterol/ Ipratropium (Duoneb) 3 ml Q2H RESP THERAPY PRN HHN SHORTNESS OF BREATH Last administered on 02/13/19at 05:52; Admin Dose 3 ML; Start 01/17/19 at 18:17 Bisacodyl (Dulcolax) 10 mg BID PRN PO CONSTIPATION; Start 01/17/19 at 18:17; Status Hold Folic Acid (Folic Acid) 1 mg DAILY PO Last administered on 02/21/19 09:06; Ad min Dose 1 MG; Start 01/17/19 at 18:17 Latanoprost (Xalatan) 1 drop HS BOTH EYES Last administered on 02/20/19 21:00; Admin Dose 1 DROP; Start 01/17/19 at 18:17 Nitroglycerin (Nitroglycerin (Sl Tab) 0.4 Mg) 0.4 tab Q5M PRN SL CHEST PAIN; Start 01/17/19 at 18:17 IV Flush (NS 3 ml) 3 ml PER PROTOCOL IV ; Start 01/17/19 at 18:17 Glucose (Glutose) 15 gm Q15M PRN PO DECREASED GLUCOSE; Start 01/17/19 at 18:17 Glucose (Glutose) 22.5 gm Q15M PRN PO DECREASED GLUCOSE; Start 01/17/19 at 18:17 Dextrose (D50w Syringe) 25 ml Q15M PRN IV DECREASED GLUCOSE Last administered on 02/14/19at 17:23; Admin Dose 25 ML; Start 01/17/19 at 18:17 Dextrose (D50w Syringe) 50 ml Q15M PRN IV DECREASED GLUCOSE; Start 01/17/19 at 18:17 Glucagon (Glucagen) 1 mg Q15M PRN IM DECREASED GLUCOSE Last administered on 01/23 17:55; Admin Dose 1 MG; Start 01/17/19 at 18:17 Glucose (Glutose) 15 gm Q15M PRN BUCCAL DECREASED GLUCOSE; Start 01/17/19 at 18:17 Bisacodyl (Dulcolax Supp) 10 mg DAILY PRN [place] CONSTIPATION; Start 01/17/19 at 18:17 Zinc Acetate/ Diphenhydramine (Benadryl 2% Cr) 1 applic Q6H PRN TOP ITCHING Last administered on 01/26/19at 07:54; Admin Dose 1 APPLIC; Start 01/19/19 at 16:37 IV Flush (NS 10 ml) 10 ml PRN PRN IV IV PROTOCOL; Start 01/20/19 at 14:30 Cyanocobalamin (Vitamin B12 Inj) 1,000 mcg Q7D IM Last administered on 02/17/19at 08:30; Admin Dose 1,000 MCG; Start 02/03/19 at 09:00 Metoprolol Tartrate (Lopressor) 5 mg Q4H PRN IV HR>110 Hold SBP<100; Start 01/26/19 at 14:30 Enoxaparin Sodium (Lovenox) 60 mg DAILY SC Last administered on 02/03/19 08:06; Admin Dose 60 MG; Start 01/28/19 at 09:00; Status Hold Docusate Sodium (Colace Liquid Cup) 100 mg BID NGT ; Start 01/27/19 at 22:00; Status Hold Terazosin HCl (Hytrin) 10 mg HS NGT Last administered on 02/20/19 20:54; Admin Dose 10 MG; Start 01/28/19 at 21:00 Levothyroxine Sodium (Synthroid) 125 mcg BEFORE BREAKFAST NGT Last adm inistered on 02/21/19 05:14; Admin Dose 125 MCG; Start 01/28/19 at 07:00 Ferrous Sulfate (Feosol Liquid Cup) 300 mg WITH MEALS GTB Last administered on 02/21/19 12:30; Admin Dose 300 MG; Start 01/28/19 at 11:30 Multivitamins (Multivitamin) 30 ml DAILY GTB Last administered on 02/21/19 09:05; Admin Dose 30 ML; Start 01/28/19 at 11:00 Nystatin/ Triamcinolone Acetonide (Mycolog Oint) 1 applic BID TOP Last administered on 02/21/19 09:08; Admin Dose 1 APPLIC; Start 01/28/19 at 22:30 Insulin Aspart (Novolog Insulin Pen) NOVOLOG *MILD* ALGORI... Q4 SC Last administered on 02/21/19 13:34; Admin Dose 2 UNIT; Start 01/29/19 at 05:00 Albuterol/ Ipratropium (Duoneb) 3 ml Q6HWA RESP THERAPY HHN Last administered on 02/21/19 13:53; Admin Dose 3 ML; Start 01/29/19 at 14:00 Epoetin Dae-epbx (RETACRIT(non-esrd)) 40,000 unit Mo@1700 SC Last administered on 02/17/19 17:18; Admin Dose 40,000 UNIT; Start 02/03/19 at 17:00 Eye Lubricant (Refresh Plus) 1 drop QID BOTH EYES Last administered on 01/24 12:32; Admin Dose 1 DROP; Start 02/06/19 at 09:00 Eye Lubricant (Akwa Oint) 1 applic HS LEFT EYE Last administered on 02/20/19 20:49; Admin Dose 1 APPLIC; Start 02/06/19 at 21:00 Multi-Ingredient Ointment (Aquaphor Oint 52.5 Gm) 1 applic BID TOP Last administered on 02/21/19 09:07; Admin Dose 1 APPLIC; Start 02/06/19 at 22:40 Morphine Sulfate (morphine) 0.25 mg Q4H PRN IV SEVERE PAIN LEVEL 7-10 Last administered on 02/21/19 06:06; Admin Dose 0.25 MG; Start 02/15/19 at 11:00 Metoprolol Tartrate (Lopressor) 12.5 mg BID NGT Last administered on 02/21/19 09:07; Admin Dose 12.5 MG; Start 02/17/19 at 21:00 Pantoprazole (Protonix Iv) 40 mg BID@06,18 IV Last administered on 02/21/19 05:13; Admin Dose 40 MG; Start 02/19/19 at 18:00 Methylprednisolone Sodium Succinate (Solu-Medrol) 40 mg DAILY IV Last administered on 02/21/19 09:05; Admin Dose 40 MG; Start 02/21/19 at 09:00 Insulin Glargine (Lantus) 12 units DAILY@2000 SC Last administered on 02/20/19 21:00; Admin Dose 12 UNITS; Start 02/20/19 at 20:00 Assessment/Plan Hospital Course (Demo Recall) IMP: 1. s/p Acute hypoxemic respiratory failure likely secondary to combination of volume overload and pneumonia, now requiring bilevel ventilation 2. Encephalopathy underlying dementia versus toxic metabolic, appears to be slowly improving possibly secondary to elevated sodium. 3. Valvular heart disease 4. Severe dysphagia 5. Status post septic shock likely secondary to above, persistent leukocytosis. 6. Anemia, no active GI bleeding 7. Skin diffuse excoriating skin lesion unclear etiology not consistent with history of "red man" syndrome. or pemphigus. Likely drug reaction. 8. Anemia 9. Status post septic shock RECS: 1. Continue bilevel ventilation 2. Continue broad-spectrum antibiotics 3. Infectious work-up as per ID 4. Monitor H&H 5. Diuresis as tolerated Overall prognosis extremely poor. Palliative care recommendations. Consider transition to comfort care D[facility]CRAE [facility] February 21, 2019 14:40
--- NOTE | 2019-02-21 16:14 | CONS ---
Assessment/Plan Assessment/Plan Assessment/Plan (Daily) Assessment/Plan Assessment/Plan Assessment/Plan (Daily) Hospital Course (Demo Recall) 88 yo male presents from [facility] for SOB and febrile 1. Severe anemia likely due to chronic disease, last work up while admitted to [facility] about a week ago was neg for GI bleeding, including EGD/colon which was done -s/p EGD and colonoscopy by Dr Frost 01/09/19 which didn't find an obvious GI etiology to explain anemia. AVM or a small lesion could be missed due to poor prep. Pt likely needs capsule endoscopy -Neg fob, elevate retic, Low iron, tibc, and sat, ferritin [place] 14013 --pt's FOB had been negative until 02/05 pt had positive FOB 2. Cystic lesion along pancreas body - 4.3 cm cystic lesion along the pancreas body, enlarged since 10/10/2012 (previously 2.4 cm). 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 -CEA wnl 3. Severe gastritis 4. Hemorrhoids 5. Hital hernia 6. A fib, -eliquis was stopped 01/06 during previous admission, on ASA 7. COPD 8. HTN 9. Hypothyroidism 10. Bilateral groin cellulitis 11. Rheumatoid arthritis. 12. Diabetes mellitus. 13. Peripheral vascular disease. 14. CHF 15. 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 Sepsis secondary to pneumonia 18. Encephalopathy secondary to sepsis #19 large right pleural effusion Plan: Once pt is stable we will proceed with G-tube placement Patient is scheduled for thoracocentesis today hopefully his oxygenation improves after that Patient is on BiPAP now Consultation Date/Type/Reason Admit Date/Time Jan 17, 2019 at 15:58 Initial Consult Date 01/18/19 Requesting Provider: IVAN AKHTAR MD Date/Time of Note DATE: 02/21/19 TIME: 16:13 24 HR Interval Summary Subjective hx not possible: pt non-verbal, pt critical Exam/Review of Systems Exam Vitals Vital Signs Date Temp Pulse Resp B/P (MAP) Pulse Ox O2 O2 Flow FiO2 Time Delivery Rate 02/21/19 98.0 82 18 149/61 90 15:44 (90) 02/21/19 50 15:08 02/20/19 High Flow 03:41 Intake and Output 02/20/19 02/20/1919 1515:00 23:00 07:00 IntakeIntake Total 1125 ml 1280 ml OutputOutput Total 700 ml 1100 ml BalanceBalance 425 ml 180 ml Constitutional: non-verbal Psych: confusion Eyes: nl conjunctiva, EOMI, nl lids, nl sclera, PERRL Respiratory: diminished breath sounds, intercostal retraction Cardiovascular: regular rate and rhythm, nl pulses Results Result Diagram: 02/21/19 0645 02/21/19 0645 Results 24hrs Laboratory Tests Test 02/20/19 18:11 02/20/19 20:25 02/21/19 01:11 02/21/19 03:47 Bedside Glucose 250 H 239 H 205 194 Test 02/21/19 05:08 02/21/19 06:45 02/21/19 10:18 02/21/19 13:20 Bedside Glucose 174 163 White Blood Count 10.7 # Red Blood Count 2.88 L Hemoglobin 7.9 L Hematocrit 27.2 L Mean Corpuscular 94.4 Volume Mean Corpuscular 27.4 L Hemoglobin Mean Corpuscular 29.0 L Hemoglobin Concen t Red Cell 19.7 H Distribution Width Platelet Count 130 L Mean Platelet 12.3 H Volume Immature 0.500 H Granulocytes % Neutrophils % 74.8 Lymphocytes % 15.3 Monocytes % 9.3 Eosinophils % 0.1 Basophils % 0.0 Nucleated Red 1.5 H Blood Cells % Immature 0.050 H Granulocytes # Neutrophils # 8.0 H Lymphocytes # 1.6 Monocytes # 1.0 H Eosinophils # 0.0 Basophils # 0.0 Nucleated Red 0.2 H Blood Cells # Sodium Level 147 H Potassium Level 3.5 Chloride Level 113 H Carbon Dioxide 29 Level Anion Gap 5 Blood Urea 112 H Nitrogen Creatinine 1.96 H Est Glomerular Filtrat Rate mL/min Glucose Level 165 Calcium Level 7.9 L Phosphorus Level 4.0 Magnesium Level 2.3 Total Bilirubin 0.3 Direct Bilirubin 0.00 Indirect 0.3 Bilirubin Aspartate Amino 24 Transf (AST/SGOT) Alanine 50 Aminotransferase (ALT/SGPT) Alkaline 95 Phosphatase Total Protein 4.9 L Albumin 2.3 L Globulin 2.60 Albumin/Globulin 0.88 Ratio Blood Gas Blood arterial Specimen Source Arterial Blood 02/21/2019 1:43:0 Date Drawn 7 PM Arterial Blood pH 7.291 *L (Temp corrected) Arterial Blood 57.8 H pCO2 (Temp correct) Arterial Blood 55.5 L pO2 (Temp corrected) Arterial Blood 27.2 H HCO3 Arterial Blood 0.1 Base Excess Arterial Blood 86.4 L Oxygen Saturation Manuel Test ACCEPTAB Arterial Blood Right Radial Gas Puncture Site Arterial 1.0 Blood Carboxyhemo globin Arterial Blood 0.4 Methemoglobin Blood Gas A-a O2 236.0 H Differential Oxyhemoglobin 85.2 L Percent Blood Gas 37.0 Temperature Blood Gas HFNC Modality FiO2 50.0 Blood Gas CORINNE WONG Critical Value Read Back Blood Gas TM Notified Whom Blood Gas 02/21/2019 1:58:2 Notified Time 8 PM Test 02/21/19 13:27 Bedside Glucose 194 Medications Medication Current Medications Acetaminophen (Tylenol Tab) 650 mg Q4H PRN PO PAIN Last administered on 02/11/19at 21:29; Admin Dose 650 MG; Start 01/17/19 at 18:17 Miscellaneous Information (Pending [facility] Order For Wound Care) This patient ramirez... PRN PRN XX WOUND CARE; Start 01/17/19 at 18:17 Albuterol/ Ipratropium (Duoneb) 3 ml Q2H RESP THERAPY PRN HHN SHORTNESS OF BREATH Last administered on 02/13/19at 05:52; Admin Dose 3 ML; Start 01/17/19 at 18:17 Bisacodyl (Dulcolax) 10 mg BID PRN PO CONSTIPATION; Start 01/17/19 at 18:17; Status Hold Folic Acid (Folic Acid) 1 mg DAILY PO Last administered on 02/21/19at 09:06; Admin Dose 1 MG; Start 01/17/19 at 18:17 Latanoprost (Xalatan) 1 drop HS BOTH EYES Last administered on 02/20/19at 21:00; Admin Dose 1 DROP; Start 01/17/19 at 18:17 Nitroglycerin (Nitroglycerin (Sl Tab) 0.4 Mg) 0.4 tab Q5M PRN SL CHEST PAIN; Start 01/17/19 at 18:17 IV Flush (NS 3 ml) 3 ml PER PROTOCOL IV ; Start 01/17/19 at 18:17 Glucose (Glutose) 15 gm Q15M PRN PO DECREASED GLUCOSE; Start 01/17/19 at 18:17 Glucose (Glutose) 22.5 gm Q15M PRN PO DECREASED GLUCOSE; Start 01/17/19 at 18:17 Dextrose (D50w Syringe) 25 ml Q15M PRN IV DECREASED GLUCOSE Last administered on 02/14/19at 17:23; Admin Dose 25 ML; Start 01/17/19 at 18:17 Dextrose (D50w Syringe) 50 ml Q15M PRN IV DECREASED GLUCOSE; Start 01/17/19 at 18:17 Glucagon (Glucagen) 1 mg Q15M PRN IM DECREASED GLUCOSE Last administered on 02/11/19at 17:55; Admin Dose 1 MG; Start 01/17/19 at 18:17 Glucose (Glutose) 15 gm Q15M PRN BUCCAL DECREASED GLUCOSE; Start 01/17/19 at 18:17 Bisacodyl (Dulcolax Supp) 10 mg DAILY PRN [place] CONSTIPATION; Start 01/17/19 at 18:17 Zinc Acetate/ Diphenhydramine (Benadryl 2% Cr) 1 applic Q6H PRN TOP ITCHING Last administered on 01/26/19at 07:54; Admin Dose 1 APPLIC; Start 01/19/19 at 16:37 IV Flush (NS 10 ml) 10 ml PRN PRN IV IV PROTOCOL; Start 01/20/19 at 14:30 Cyanocobalamin (Vitamin B12 Inj) 1,000 mcg Q7D IM Last administered on 02/17/19at 08:30; Admin Dose 1,000 MCG; Start 02/03/19 at 09:00 Metoprolol Tartrate (Lopressor) 5 mg Q4H PRN IV HR>110 Hold SBP<100; Start 01/26/19 at 14:30 Enoxaparin Sodium (Lovenox) 60 mg DAILY SC Last administered on 02/03/19at 08:06; Admin Dose 60 MG; Start 01/28/19 at 09:00; Status Hold Docusate Sodium (Colace Liquid Cup) 100 mg BID NGT ; Start 01/27/19 at 22:00; Status Hold Terazosin HCl (Hytrin) 10 mg HS NGT Last administered on 02/20/19at 20:54; Admin Dose 10 MG; Start 01/28/19 at 21:00 Levothyroxine Sodium (Synthroid) 125 mcg BEFORE BREAKFAST NGT Last administered on 02/21/19at 05:14; Admin Dose 125 MCG; Start 01/28/19 at 07:00 Ferrous Sulfate (Feosol Liquid Cup) 300 mg WITH MEALS GTB Last administered on 02/21/19 12:30; Admin Dose 300 MG; Start 01/28/19 at 11:30 Multivitamins (Multivitamin) 30 ml DAILY GTB Last administered on 02/21/19 09:05; Admin Dose 30 ML; Start 01/28/19 at 11:00 Nystatin/ Triamcinolone Acetonide (Mycolog Oint) 1 applic BID TOP Last administered on 02/21/19 09:08; Admin Dose 1 APPLIC; Start 01/28/19 at 22:30 Insulin Aspart (Novolog Insulin Pen) NOVOLOG *MILD* ALGORI... Q4 SC Last administered on 02/21/19 13:34; Admin Dose 2 UNIT; Start 01/29/19 at 05:00 Albuterol/ Ipratropium (Duoneb) 3 ml Q6HWA RESP THERAPY HHN Last administered on 02/21/19 13:53; Admin Dose 3 ML; Start 01/29/19 at 14:00 Epoetin Dae-epbx (RETACRIT(non-esrd)) 40,000 unit Mo@1700 SC Last administered on 02/17/19 17:18; Admin Dose 40,000 UNIT; Start 02/03/19 at 17:00 Eye Lubricant (Refresh Plus) 1 drop QID BOTH EYES Last administered on 02/21/19 12:32; Admin Dose 1 DROP; Start 02/06/19 at 09:00 Eye Lubricant (Akwa Oint) 1 applic HS LEFT EYE Last administered on 02/20/19 20:49; Admin Dose 1 APPLIC; Start 02/06/19 at 21:00 Multi-Ingredient Ointment (Aquaphor Oint 52.5 Gm) 1 applic BID TOP Last administered on 02/21/19 09:07; Admin Dose 1 APPLIC; Start 02/06/19 at 22:40 Morphine Sulfate (morphine) 0.25 mg Q4H PRN IV SEVERE PAIN LEVEL 7-10 Last administered on 02/21/19 06:06; Admin Dose 0.25 MG; Start 02/15/19 at 11:00 Metoprolol Tartrate (Lopressor) 12.5 mg BID NGT Last administered on 02/21/19at 09:07; Admin Dose 12.5 MG; Start 02/17/19 at 21:00 Pantoprazole (Protonix Iv) 40 mg BID@06,18 IV Last administered on 02/21/19at 05:13; Admin Dose 40 MG; Start 02/19/19 at 18:00 Methylprednisolone Sodium Succinate (Solu-Medrol) 40 mg DAILY IV Last administered on 02/21/19at 09:05; Admin Dose 40 MG; Start 02/21/19 at 09:00 Insulin Glargine (Lantus) 12 units DAILY@2000 SC Last administered on 02/20/19at 21:00; Admin Dose 12 UNITS; Start 02/20/19 at 20:00 Furosemide (Lasix) 40 mg DAILY IV ; Start 02/22/19 at 09:00 MICHELLE FROST MD February 21, 2019 16:14
--- NOTE | 2019-02-21 16:25 | CONS ---
Assessment/Plan Assessment/Plan Hospital Course (Demo Recall) IMPRESSION: 1. Atrial fibrillation, currently rate controlled.-off systemic anticoagulation due to anemia. 2. Possible congestive heart failure by chest x-ray, which will be diastolic, acute on chronic by most recent echo with an EF of 60%. 3. Tricuspid regurgitation, moderate by most recent echo. 4. Acute on chronic renal failure-mild worsening 5. Possible pneumonia. 6. History of coronary artery disease, status post coronary artery bypass graft surgery. 7. Dyslipidemia. 8. Rheumatoid arthritis. 9. Groin cellulitis. 10. Anemia-worsening again today. s/p endoscopy during this admission 11. Diabetes mellitus. 12. Sepsis/leukocytosis 14. abdominal mass 15. Rash-all over body with skin chaffing at this time, probable drug reaction- significantly improved 16. Encephalopathy-ongoing. MRI negative for acute CVA 17. coagulopathy-ongoing and mildly increased Recc: -Back on tele -serial ecg's -Continue statin -Continue broad spectrum abx's and f/u cx data -Contineu topical treatment -BB as tolerated only and was held today -off anticoagulation secondary to anemia/GIB requiring trasnfusions -transfuse PRBC's as necessary -Now resumed on lasix follow volume status clsoely -now on steroids/bronchodilators follow resp status and wean high flow oxygen as tolerated -Now DNR Consultation Date/Type/Reason Admit Date/Time Jan 17, 2019 at 15:58 Initial Consult Date 01/18/19 Type of Consult Cardiology Reason for Consultation CHF Requesting Provider: IVAN AKHTAR MD Date/Time of Note DATE: 02/21/19 TIME: 16:20 Exam/Review of Systems Vital Signs Vitals Vital Signs Date Temp Pulse Resp B/P (MAP) Pulse Ox O2 O2 Flow FiO2 Time Delivery Rate 02/21/19 98.0 82 18 149/61 90 15:44 (90) 02/21/19 50 15:08 02/20/19 High Flow 03:41 Intake and Output 02/20/19 02/20/19 02/21/19 1515:00 23:00 07:00 IntakeIntake Total 1125 ml 1280 ml OutputOutput Total 700 ml 1100 ml BalanceBalance 425 ml 180 ml Exam Exam Review of Systems: CONSTITUTIONAL: No fevers, chills. PULMONARY: No sob CARDIOVASCULAR: No chest pain/palpitations GASTROINTESTINAL: No nausea/vomiting. GENITOURINARY: No hematuria/dysuria. MUSCULOSKELETAL: No myagias/arthalgias. PSYCHIATRIC: The patient denies depression. NEUROLOGIC: encephalopathic Constitutional: other (awake) Psych: confusion ENMT: mucosa pink and moist Neck: supple, jvd (9 cm water) Respiratory: diminished breath sounds Cardiovascular: regular rate and rhythm Gastrointestinal: soft, non-tender Musculoskeletal: muscle tone (normal) Extremities: other (trace edema) Neurological: lethargic, other Labs Result Diagram: 02/21/19 0645 02/21/19 0645 Results 24hrs Laboratory Tests Test 02/20/19 18:11 02/20/19 20:25 02/21/19 01:11 02/21/19 03:47 Bedside Glucose 250 H 239 H 205 194 Test 02/21/19 05:08 02/21/19 06:45 02/21/19 10:18 02/21/19 13:20 Bedside Glucose 174 163 White Blood Count 10.7 # Red Blood Count 2.88 L Hemoglobin 7.9 L Hematocrit 27.2 L Mean Corpuscular 94.4 Volume Mean Corpuscular 27.4 L Hemoglobin Mean Corpuscular 29.0 L Hemoglobin Concen t Red Cell 19.7 H Distribution Width Platelet Count 130 L Mean Platelet 12.3 H Volume Immature 0.500 H Granulocytes % Neutrophils % 74.8 Lymphocytes % 15.3 Monocytes % 9.3 Eosinophils % 0.1 Basophils % 0.0 Nucleated Red 1.5 H Blood Cells % Immature 0.050 H Granulocytes # Neutrophils # 8.0 H Lymphocytes # 1.6 Monocytes # 1.0 H Eosinophils # 0.0 Basophils # 0.0 Nucleated Red 0.2 H Blood Cells # Sodium Level 147 H Potassium Level 3.5 Chloride Level 113 H Carbon Dioxide 29 Level Anion Gap 5 Blood Urea 112 H Nitrogen Creatinine 1.96 H Est Glomerular Filtrat Rate mL/min Glucose Level 165 Calcium Level 7.9 L Phosphorus Level 4.0 Magnesium Level 2.3 Total Bilirubin 0.3 Direct Bilirubin 0.00 Indirect 0.3 Bilirubin Aspartate Amino 24 Transf (AST/SGOT) Alanine 50 Aminotransferase (ALT/SGPT) Alkaline 95 Phosphatase Total Protein 4.9 L Albumin 2.3 L Globulin 2.60 Albumin/Globulin 0.88 Ratio Blood Gas Blood arterial Specimen Source Arterial Blood 02/21/2019 1:43:0 Date Drawn 7 PM Arterial Blood pH 7.291 *L (Temp corrected) Arterial Blood 57.8 H pCO2 (Temp correct) Arterial Blood 55.5 L pO2 (Temp corrected) Arterial Blood 27.2 H HCO3 Arterial Blood 0.1 Base Excess Arterial Blood 86.4 L Oxygen Saturation Manuel Test ACCEPTAB Arterial Blood Right Radial Gas Puncture Site Arterial 1.0 Blood Carboxyhemo globin Arterial Blood 0.4 Methemoglobin Blood Gas A-a O2 236.0 H Differential Oxyhemoglobin 85.2 L Percent Blood Gas 37.0 Temperature Blood Gas HFNC Modality FiO2 50.0 Blood Gas CORINNE WONG Critical Value Read Back Blood Gas TM Notified Whom Blood Gas 02/21/2019 1:58:2 Notified Time 8 PM Test 02/21/19 13:27 Bedside Glucose 194 Medications Medications Current Medications Acetaminophen (Tylenol Tab) 650 mg Q4H PRN PO PAIN Last administered on 02/11at 21:29; Admin Dose 650 MG; Start 01/17/19 at 18:17 Miscellaneous Information (Pending [facility] Order For Wound Care) This patient ramirez... PRN PRN XX WOUND CARE; Start 01/17/19 at 18:17 Albuterol/ Ipratropium (Duoneb) 3 ml Q2H RESP THERAPY PRN HHN SHORTNESS OF BREATH Last administered on 02/13/19at 05:52; Admin Dose 3 ML; Start 01/17/19 at 18:17 Bisacodyl (Dulcolax) 10 mg BID PRN PO CONSTIPATION; Start 01/17/19 at 18:17; Status Hold Folic Acid (Folic Acid) 1 mg DAILY PO Last administered on 02/21/19at 09:06; Admin Dose 1 MG; Start 01/17/19 at 18:17 Latanoprost (Xalatan) 1 drop HS BOTH EYES Last administered on 02/20/19at 21:00; Admin Dose 1 DROP; Start 01/17/19 at 18:17 Nitroglycerin (Nitroglycerin (Sl Tab) 0.4 Mg) 0.4 tab Q5M PRN SL CHEST PAIN; Start 01/17/19 at 18:17 IV Flush (NS 3 ml) 3 ml PER PROTOCOL IV ; Start 01/17/19 at 18:17 Glucose (Glutose) 15 gm Q15M PRN PO DECREASED GLUCOSE; Start 01/17/19 at 18:17 Glucose (Glutose) 22.5 gm Q15M PRN PO DECREASED GLUCOSE; Start 01/17/19 at 18:17 Dextrose (D50w Syringe) 25 ml Q15M PRN IV DECREASED GLUCOSE Last administered on 02/14/19at 17:23; Admin Dose 25 ML; Start 01/17/19 at 18:17 Dextrose (D50w Syringe) 50 ml Q15M PRN IV DECREASED GLUCOSE; Start 01/17/19 at 18:17 Glucagon (Glucagen) 1 mg Q15M PRN IM DECREASED GLUCOSE Last administered on 02/11/19at 17:55; Admin Dose 1 MG; Start 01/17/19 at 18:17 Glucose (Glutose) 15 gm Q15M PRN BUCCAL DECREASED GLUCOSE; Start 01/17/19 at 18:17 Bisacodyl (Dulcolax Supp) 10 mg DAILY PRN [place] CONSTIPATION; Start 01/17/19 at 18:17 Zinc Acetate/ Diphenhydramine (Benadryl 2% Cr) 1 applic Q6H PRN TOP ITCHING Last administered on 01/26/19at 07:54; Admin Dose 1 APPLIC; Start 01/19/19 at 16:37 IV Flush (NS 10 ml) 10 ml PRN PRN IV IV PROTOCOL; Start 01/20/19 at 14:30 Cyanocobalamin (Vitamin B12 Inj) 1,000 mcg Q7D IM Last administered on 02/17/19at 08:30; Admin Dose 1,000 MCG; Start 02/03/19 at 09:00 Metoprolol Tartrate (Lopressor) 5 mg Q4H PRN IV HR>110 Hold SBP<100; Start 01/26/19 at 14:30 Enoxaparin Sodium (Lovenox) 60 mg DAILY SC Last administered on 02/03/19at 08:06; Admin Dose 60 MG; Start 01/28/19 at 09:00; Status Hold Docusate Sodium (Colace Liquid Cup) 100 mg BID NGT ; Start 01/27/19 at 22:00; Status Hold Terazosin HCl (Hytrin) 10 mg HS NGT Last administered on 02/20/19at 20:54; Admin Dose 10 MG; Start 01/28/19 at 21:00 Levothyroxine Sodium (Synthroid) 125 mcg BEFORE BREAKFAST NGT Last administered on 02/21/19 05:14; Admin Dose 125 MCG; Start 01/28/19 at 07:00 Ferrous Sulfate (Feosol Liquid Cup) 300 mg WITH MEALS GTB Last administered on 02/21/19 12:30; Admin Dose 300 MG; Start 01/28/19 at 11:30 Multivitamins (Multivitamin) 30 ml DAILY GTB Last administered on 02/21/19 09:05; Admin Dose 30 ML; Start 01/28/19 at 11:00 Nystatin/ Triamcinolone Acetonide (Mycolog Oint) 1 applic BID TOP Last administered on 02/21/19 09:08; Admin Dose 1 APPLIC; Start 01/28/19 at 22:30 Insulin Aspart (Novolog Insulin Pen) NOVOLOG *MILD* ALGORI... Q4 SC Last administered on 02/21/19 13:34; Admin Dose 2 UNIT; Start 01/29/19 at 05:00 Albuterol/ Ipratropium (Duoneb) 3 ml Q6HWA RESP THERAPY HHN Last administered on 02/21/19 13:53; Admin Dose 3 ML; Start 01/29/19 at 14:00 Epoetin Dae-epbx (RETACRIT(non-esrd)) 40,000 unit Mo@1700 SC Last administered on 02/17/19 17:18; Admin Dose 40,000 UNIT; Start 02/03/19 at 17:00 Eye Lubricant (Refresh Plus) 1 drop QID BOTH EYES Last administered on 02/21/19 12:32; Admin Dose 1 DROP; Start 02/06/19 at 09:00 Eye Lubricant (Akwa Oint) 1 applic HS LEFT EYE Last administered on 02/20/19 20:49; Admin Dose 1 APPLIC; Start 02/06/19 at 21:00 Multi-Ingredient Ointment (Aquaphor Oint 52.5 Gm) 1 applic BID TOP Last administered on 02/21/19 09:07; Admin Dose 1 APPLIC; Start 02/06/19 at 22:40 Morphine Sulfate (morphine) 0.25 mg Q4H PRN IV SEVERE PAIN LEVEL 7-10 Last administered on 02/21/19 06:06; Admin Dose 0.25 MG; Start 02/15/19 at 11:00 Metoprolol Tartrate (Lopressor) 12.5 mg BID NGT Last administered on 02/21/19at 09:07; Admin Dose 12.5 MG; Start 02/17/19 at 21:00 Pantoprazole (Protonix Iv) 40 mg BID@06,18 IV Last administered on 02/21/19at 05:13; Admin Dose 40 MG; Start 02/19/19 at 18:00 Methylprednisolone Sodium Succinate (Solu-Medrol) 40 mg DAILY IV Last administered on 02/21/19at 09:05; Admin Dose 40 MG; Start 02/21/19 at 09:00 Insulin Glargine (Lantus) 12 units DAILY@2000 SC Last administered on 02/20/19at 21:00; Admin Dose 12 UNITS; Start 02/20/19 at 20:00 Furosemide (Lasix) 40 mg DAILY IV ; Start 02/22/19 at 09:00 MARJORIE JAIN February 21, 2019 16:25
[2019-02-21] MEDS ORDERED: LIDOCAINE 1% (MPF) 5 ML VIAL ONE (17:25)
[2019-02-21] MEDS: LANSOPRAZOLE 30 MG CAP NGT SCH (17:46)
[2019-02-21] MEDS: TERAZOSIN 5 MG CAP NGT SCH (20:36)
[2019-02-21] MEDS: DIPHENHYDRAMINE 2%/ZINC 28.4 GM CR TOP PRN (20:38)
[2019-02-21] MEDS: OCULAR LUBRICANT 3.5 GM OPH OINT LEFT EYE SCH (20:39)
[2019-02-21] MEDS: INSULIN GLARGINE [LANTus] (100 UNITS/ML) SYG SC SCH (20:42)
[2019-02-21] MEDS: LATANOPROST 0.005% 2.5 ML OPH BOTH EYES SCH (21:00)
[2019-02-22] VITALS (24 sets, daily range): BP systolic 106–134; BP diastolic 54–63; PULSE 56–75; RESP 17–21
[2019-02-22] MEDS: INSULIN ASPART [NOVOLOG] 3 ML PEN SC SCH ×6 (01:00→22:46)
[2019-02-22] MEDS: DEXTROSE 5%-0.45% NACL 1,000 ML IV SCH ×2 (01:26→17:41)
[2019-02-22] MEDS: LEVOTHYROXINE 125 MCG TAB NGT SCH (06:16)
[2019-02-22] MEDS: LANSOPRAZOLE 30 MG CAP NGT SCH ×2 (06:17→17:39)
[2019-02-22] MEDS: ALBUTEROL/IPRATROPIUM (NEB) 3 ML AMP HHN SCH ×3 (07:59→19:53)
[2019-02-22] MEDS: FERROUS SULFATE 60 MG/ML 5ML CUP GTB SCH ×3 (08:49→17:39)
[2019-02-22] MEDS: METHYLPREDNISOLONE 40 MG INJ IV SCH (08:49)
[2019-02-22] MEDS: MULTIVITAMINS 30 ML CUP GTB SCH (08:49)
[2019-02-22] MEDS: CARBOXYMETHYLCELLULOSE 0.5% 0.4 ML OPH BOTH EYES SCH ×4 (08:50→22:41)
[2019-02-22] MEDS: FOLIC ACID 1 MG TAB PO SCH (08:50)
[2019-02-22] MEDS: METOPROLOL 25 MG TAB NGT SCH (08:50)
[2019-02-22] MEDS: FUROSEMIDE 40 MG INJ IV SCH (08:51)
[2019-02-22] MEDS: BALSAM PERU/CASTOR OIL 60 GM TUBE TOP SCH ×2 (08:52→21:00)
[2019-02-22] MEDS: AQUAPHOR 52.5 GM OINT TOP SCH ×2 (08:52→21:00)
[2019-02-22] MEDS: NYSTATIN/TRIAMCINOLONE 15 GM OINT TOP SCH ×2 (08:52→21:00)
--- NOTE | 2019-02-22 09:54 | CONS ---
Assessment/Plan Assessment/Plan Assessment/Plan (Daily) Assessment/Plan (Daily) Hospital Course (Demo Recall) 88 yo male presents from [place] re[facility] for SOB and febrile 1. Severe anemia likely due to chronic disease, last work up while admitted to [facility] about a week ago was neg for GI bleeding, including EGD/colon which was done -s/p EGD and colonoscopy 01/09/19 which didn't find an obvious GI etiology to explain anemia. AVM or a small lesion could be missed due to poor prep. Pt likely needs capsule endoscopy -Neg fob, elevate retic, Low iron, tibc, [place] [id number] --pt's FOB had been negative until 02/05 pt had positive FOB 2. Cystic lesion along pancreas body - 4.3 cm cystic lesion along the pancreas body, enlarged since 10/10/2012 (previously 2.4 cm). 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 -CEA wnl 3. Severe gastritis 4. Hemorrhoids 5. Hital hernia 6. A fib, -eliquis was stopped 01/06 during previous admission, on ASA 7. COPD 8. HTN 9. Hypothyroidism 10. Bilateral groin cellulitis 11. Rheumatoid arthritis. 12. Diabetes mellitus. 13. Peripheral vascular disease. 14. CHF 15. 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 Sepsis secondary to pneumonia 18. Encephalopathy secondary to sepsis #19 large right pleural effusion Plan: Once pt is stable we will proceed with G-tube placement Patient is scheduled for thoracocentesis today hopefully his oxygenation improves after that Patient is on BiPAP now Feeding is stopped for the fear of aspiration Consultation Date/Type/Reason Admit Date/Time Jan 17, 2019 at 15:58 Initial Consult Date 01/18/19 Requesting Provider: IVAN AKHTAR MD Date/Time of Note DATE: 02/22/19 TIME: 09:52 24 HR Interval Summary Subjective hx not possible: pt non-verbal, pt critical Exam/Review of Systems Exam Vitals Vital Signs Date Temp Pulse Resp B/P (MAP) Pulse Ox O2 O2 Flow FiO2 Time Delivery Rate 02/22/19 62 100 50 07:59 02/22/19 98.4 20 113/63 BIPAP 07:11 (80) Intake and Output 02/21/19 02/21/19 02/22/19 1515:00 23:00 07:00 IntakeIntake Total 600 ml 50 ml OutputOutput Total 1000 ml 800 ml BalanceBalance -400 ml -750 ml Constitutional: non-verbal Psych: confusion Respiratory: diminished breath sounds Gastrointestinal: soft Musculoskeletal: nl extremities to inspection, nl gait and stance Extremities: normal pulses Neurological: confused Results Result Diagram: 02/22/19 0705 02/22/19 0705 Results 24hrs Laboratory Tests Test 02/21/19 10:18 02/21/19 13:20 02/21/19 13:27 02/21/19 16:00 Bedside Glucose 163 194 Blood Gas Blood arterial Blood arterial Specimen Source Arterial Blood 02/21/2019 1:43: 02/21/2019 6:17: Date Drawn 07 PM 19 PM Arterial Blood 7.291 *L 7.283 *L pH (Temp corrected) Arterial Blood 57.8 H 63.5 H pCO2 (Temp correct) Arterial Blood 55.5 L 80.4 pO2 (Temp corrected) Arterial Blood 27.2 H 29.4 H HCO3 Arterial Blood 0.1 1.9 Base Excess Arterial Blood 86.4 L 94.6 L Oxygen Saturatio n Manuel Test ACCEPTAB ACCEPTAB Arterial Blood Right Radial Left Radial Gas Puncture Site Arterial 1.0 0.6 Blood Carboxyhem oglobin Arterial Blood 0.4 0.4 Methemoglobin Blood Gas A-a O2 236.0 H 204.7 H Differential Oxyhemoglobin 85.2 L 93.7 Percent Blood Gas 37.0 37.0 Temperature Blood Gas HFNC MASK - BIPAP Modality FiO2 50.0 50.0 Blood Gas CORINNE levy Critical Value vamshi Read Back Blood Gas TM ab Notified Whom Blood Gas 02/21/2019 1:58: 02/21/2019 6:22: Notified Time 28 PM 40 PM Blood Gas 20.0 Respiration Rate Blood Gas Actual 25 Respiration Rate Blood Gas 10 Pressure Support Blood Gas 18/8 IPAP/EPAP Ratio Test 02/21/19 17:44 02/21/19 20:30 02/22/19 00:23 02/22/19 05:38 Bedside Glucose 134 129 87 101 Test 02/22/19 07:05 02/22/19 08:28 White Blood 9.2 Count Red Blood Count 2.59 L Hemoglobin 7.3 L Hematocrit 24.9 L Mean Corpuscular 96.1 Volume Mean Corpuscular 28.2 L Hemoglobin Mean Corpuscular 29.3 L Hemoglobin June nt Red Cell 19.7 H Distribution Width Platelet Count 133 L Mean Platelet 12.5 H Volume Immature 0.500 H Granulocytes % Neutrophils % 80.9 H Lymphocytes % 12.9 L Monocytes % 5.6 Eosinophils % 0.0 Basophils % 0.1 Nucleated Red 0.7 H Blood Cells % Immature 0.050 H Granulocytes # Neutrophils # 7.4 Lymphocytes # 1.2 Monocytes # 0.5 Eosinophils # 0.0 Basophils # 0.0 Nucleated Red 0.1 H Blood Cells # Sodium Level 147 H Potassium Level 3.9 Chloride Level 113 H Carbon Dioxide 32 H Level Anion Gap 2 L Blood Urea 112 H Nitrogen Creatinine 1.84 H Est Glomerular Filtrat Rate mL/min Glucose Level 88 # Calcium Level 8.0 L Bedside Glucose 111 Medications Medication Current Medications Acetaminophen (Tylenol Tab) 650 mg Q4H PRN PO PAIN Last administered on 02/11/19at 21:29; Admin Dose 650 MG; Start 01/17/19 at 18:17 Miscellaneous Information (Pending [facility] Order For Wound Care) This patient ramirez... PRN PRN XX WOUND CARE; Start 01/17/19 at 18:17 Albuterol/ Ipratropium (Duoneb) 3 ml Q2H RESP THERAPY PRN HHN SHORTNESS OF BREATH Last administered on 02/13/19at 05:52; Admin Dose 3 ML; Start 01/17/19 at 18:17 Bisacodyl (Dulcolax) 10 mg BID PRN PO CONSTIPATION; Start 01/17/19 at 18:17; Status Hold Folic Acid (Folic Acid) 1 mg DAILY PO Last administered on 02/22/19at 08:50; Admin Dose 1 MG; Start 01/17/19 at 18:17 Latanoprost (Xalatan) 1 drop HS BOTH EYES Last administered on 02/21/19at 21:00; Admin Dose 1 DROP; Start 01/17/19 at 18:17 Nitroglycerin (Nitroglycerin (Sl Tab) 0.4 Mg) 0.4 tab Q5M PRN SL CHEST PAIN; Start 01/17/19 at 18:17 IV Flush (NS 3 ml) 3 ml PER PROTOCOL IV ; Start 01/17/19 at 18:17 Glucose (Glutose) 15 gm Q15M PRN PO DECREASED GLUCOSE; Start 01/17/19 at 18:17 Glucose (Glutose) 22.5 gm Q15M PRN PO DECREASED GLUCOSE; Start 01/17/19 at 18:17 Dextrose (D50w Syringe) 25 ml Q15M PRN IV DECREASED GLUCOSE Last administered on 02/14/19at 17:23; Admin Dose 25 ML; Start 01/17/19 at 18:17 Dextrose (D50w Syringe) 50 ml Q15M PRN IV DECREASED GLUCOSE; Start 01/17/19 at 18:17 Glucagon (Glucagen) 1 mg Q15M PRN IM DECREASED GLUCOSE Last administered on 02/11/19at 17:55; Admin Dose 1 MG; Start 01/17/19 at 18:17 Glucose (Glutose) 15 gm Q15M PRN BUCCAL DECREASED GLUCOSE; Start 01/17/19 at 18:17 Bisacodyl (Dulcolax Supp) 10 mg DAILY PRN PA CONSTIPATION; Start 01/17/19 at 18:17 Zinc Acetate/ Diphenhydramine (Benadryl 2% Cr) 1 applic Q6H PRN TOP ITCHING Last administered on 02/21/19at 20:38; Admin Dose 1 APPLIC; Start 01/19/19 at 16:37 IV Flush (NS 10 ml) 10 ml PRN PRN IV IV PROTOCOL; Start 01/20/19 at 14:30 Cyanocobalamin (Vitamin B12 Inj) 1,000 mcg Q7D IM Last administered on 02/17/19at 08:30; Admin Dose 1,000 MCG; Start 02/03/19 at 09:00 Metoprolol Tartrate (Lopressor) 5 mg Q4H PRN IV HR>110 Hold SBP<100; Start 01/26/19 at 14:30 Enoxaparin Sodium (Lovenox) 60 mg DAILY SC Last administered on 02/03/19at 08:06; Admin Dose 60 MG; Start 01/28/19 at 09:00; Status Hold Docusate Sodium (Colace Liquid Cup) 100 mg BID NGT ; Start 01/27/19 at 22:00; Status Hold Terazosin HCl (Hytrin) 10 mg HS NGT Last administered on 02/21/19at 20:36; Admin Dose 10 MG; Start 01/28/19 at 21:00 Levothyroxine Sodium (Synthroid) 125 mcg BEFORE BREAKFAST NGT Last administered on 02/22/19 06:16; Admin Dose 125 MCG; Start 01/28/19 at 07:00 Ferrous Sulfate (Feosol Liquid Cup) 300 mg WITH MEALS GTB Last administered on 02/22/19 08:49; Admin Dose 300 MG; Start 01/28/19 at 11:30 Multivitamins (Multivitamin) 30 ml DAILY GTB Last administered on 02/22/19 08:49; Admin Dose 30 ML; Start 01/28/19 at 11:00 Nystatin/ Triamcinolone Acetonide (Mycolog Oint) 1 applic BID TOP Last administered on 02/22/19 08:52; Admin Dose 1 APPLIC; Start 01/28/19 at 22:30 Insulin Aspart (Novolog Insulin Pen) NOVOLOG *MILD* ALGORI... Q4 SC Last administered on 02/21/19 13:34; Admin Dose 2 UNIT; Start 01/29/19 at 05:00 Albuterol/ Ipratropium (Duoneb) 3 ml Q6HWA RESP THERAPY HHN Last administered on 02/22/19 07:59; Admin Dose 3 ML; Start 01/29/19 at 14:00 Epoetin Dae-epbx (RETACRIT(non-esrd)) 40,000 unit Mo@1700 SC Last administered on 02/17/19 17:18; Admin Dose 40,000 UNIT; Start 02/03/19 at 17:00 Eye Lubricant (Refresh Plus) 1 drop QID BOTH EYES Last administered on 02/22/19 08:50; Admin Dose 1 DROP; Start 02/06/19 at 09:00 Eye Lubricant (Akwa Oint) 1 applic HS LEFT EYE Last administered on 02/21/19 20:39; Admin Dose 1 APPLIC; Start 02/06/19 at 21:00 Multi-Ingredient Ointment (Aquaphor Oint 52.5 Gm) 1 applic BID TOP Last administered on 02/22/19 08:52; Admin Dose 1 APPLIC; Start 02/06/19 at 22:40 Morphine Sulfate (morphine) 0.25 mg Q4H PRN IV SEVERE PAIN LEVEL 7-10 Last administered on 02/21/19 06:06; Admin Dose 0.25 MG; Start 02/15/19 at 11:00 Metoprolol Tartrate (Lopressor) 12.5 mg BID NGT Last administered on 02/22/19at 08:50; Admin Dose 12.5 MG; Start 02/17/19 at 21:00 Methylprednisolone Sodium Succinate (Solu-Medrol) 40 mg DAILY IV Last administered on 02/22/19at 08:49; Admin Dose 40 MG; Start 02/21/19 at 09:00 Insulin Glargine (Lantus) 12 units DAILY@2000 SC Last administered on 02/21/19at 20:42; Admin Dose 12 UNITS; Start 02/20/19 at 20:00 Furosemide (Lasix) 40 mg DAILY IV Last administered on 02/22/19at 08:51; Admin Dose 40 MG; Start 02/22/19 at 09:00 Lansoprazole (Prevacid) 30 mg BID@0600,1800 NGT Last administered on 02/22/19at 06:17; Admin Dose 30 MG; Start 02/21/19 at 18:00 IV Flush (NS 10 ml) 10 ml PRN PRN IV IV PROTOCOL; Start 02/21/19 at 21:00 Dextrose/Sodium Chloride 1,000 ml @ 60 mls/hr [id number] IV Last administered on 02/22/19at 01:26; Admin Dose 60 MLS/HR; Start 02/22/19 at 01:30 MICHELLE VERDIN MD Feb 22, 2019 09:53
--- NOTE | 2019-02-22 11:08 | PN ---
Date/Time of Note Date/Time of Note DATE: 02/22/19 TIME: 10:49 Assessment/Plan VTE [place]phylaxis [place] [facility] risk: 10 [place]CD applied [place] [facility] Yes Pharmacological prophylaxis: NA/contraindicated Pharm contraindication: anticoag not tolerated Lines/C[facility] Central line still needed: Yes Urinary Cath still in place: Yes Reason Cath still needed: urinary retention Assessment/Plan Hospital Course 1. Sepsis, Lactic acid is elevated. 2. Severe anemia 3. Chronic renal failure likely secondary to sepsis, 4. Hypertension. 5. Hyperlipidemia. 6. Hypothyroidism. 7. Normocytic normochromic chronic anemia with recent hemoglobin drop. 8. Bilateral groin cellulitis more likely associated with mateus, patches in groin and axilla bilaterally. skin peeling 9. History of rheumatoid arthritis with joint deformities. 10. Diabetes type 2. 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 Peripheral vascular disease. 13. Chronic a.fib 14. right arm edema, Us negative 15. Neoplasm per CT abdomen. 4.3 cm cystic lesion along the pancreas body, enlarged since 10/10/2012 (previously 2.4 cm). 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 16. Possible allergic skin reaction, biopsy is obtained 17. altered mental status delirium vs stroke, better 18. Hypernatremia 147 19. Eye muscle paralysis, resolved. 20. s/p ultrasound-guided thoracentesis. Assessment/Plan -On BIPAP 50% -Gil eval. pending -Free water flushes via GT -DC central line -stop Metoprolol -Monitor kidney function - nebs, -c/w tube feeding -PICC line is inserted. - GI consult> hold lovenox due to possible bleeding, iv ppi> G-tube on hold currently improved pending improvement in respiratory status - GI and DVT prophylaxis -skin care - s/p skin biopsy: solar elastosis according to them is probably due to antibiotics -Off of all antibiotics -Limitations to discharge labile respiratory status with pneumonia CHF renal failure and altered mental status -he is DNR/DNI Result Diagram: 02/22/19 0702/22/19 0705 Results 24hrs Laboratory Tests Test 02/21/19 13:20 02/21/19 13:27 02/21/19 16:00 02/21/19 17:44 Blood Gas Blood arterial Blood arterial Specimen Source Arterial Blood 02/21/2019 1:43: 02/21/2019 6:17: Date Drawn 07 PM 19 PM Arterial Blood 7.291 *L 7.283 *L pH (Temp corrected) Arterial Blood 57.8 H 63.5 H pCO2 (Temp correct) Arterial Blood 55.5 L 80.4 pO2 (Temp corrected) Arterial Blood 27.2 H 29.4 H HCO3 Arterial Blood 0.1 1.9 Base Excess Arterial Blood 86.4 L 94.6 L Oxygen Saturatio n Manuel Test ACCEPTAB ACCEPTAB Arterial Blood Right Radial Left Radial Gas Puncture Site Arterial 1.0 0.6 Blood Carboxyhem oglobin Arterial Blood 0.4 0.4 Methemoglobin Blood Gas A-a O2 236.0 H 204.7 H Differential Oxyhemoglobin 85.2 L 93.7 Percent Blood Gas 37.0 37.0 Temperature Blood Gas HFNC MASK - BIPAP Modality FiO2 50.0 50.0 Blood Gas [facility] Critical Value vamshi Read Back Blood Gas TM ab Notified Whom Blood Gas 02/21/2019 1:58: 02/21/2019 6:22: Notified Time 28 PM 40 PM Bedside Glucose 194 134 Blood Gas 20.0 Respiration Rate Blood Gas Actual 25 Respiration Rate Blood Gas 10 Pressure Support Blood Gas 18/8 IPAP/EPAP Ratio Test 02/21/19 20:30 02/22/19 00:23 02/22/19 05:38 02/22/19 07:05 Bedside Glucose 129 87 101 White Blood 9.2 Count Red Blood Count 2.59 L Hemoglobin 7.3 L Hematocrit 24.9 L Mean Corpuscular 96.1 Volume Mean Corpuscular 28.2 L Hemoglobin Mean Corpuscular 29.3 L Hemoglobin June nt Red Cell 19.7 H Distribution Width Platelet Count 133 L Mean Platelet 12.5 H Volume Immature 0.500 H Granulocytes % Neutrophils % 80.9 H Lymphocytes % 12.9 L Monocytes % 5.6 Eosinophils % 0.0 Basophils % 0.1 Nucleated Red 0.7 H Blood Cells % Immature 0.050 H Granulocytes # Neutrophils # 7.4 Lymphocytes # 1.2 Monocytes # 0.5 Eosinophils # 0.0 Basophils # 0.0 Nucleated Red 0.1 H Blood Cells # Sodium Level 147 H Potassium Level 3.9 Chloride Level 113 H Carbon Dioxide 32 H Level Anion Gap 2 L Blood Urea 112 H Nitrogen Creatinine 1.84 H Est Glomerular Filtrat Rate mL/min Glucose Level 88 # Calcium Level 8.0 L Test 02/22/19 08:28 Bedside Glucose 111 Subjective 24 Hr Interval Summary Subjective hx not possible: pt non-verbal Exam/Review of Systems Exam Vitals Vital Signs Date Temp Pulse Resp B/P (MAP) Pulse Ox O2 O2 Flow FiO2 Time Delivery Rate 02/22/19 62 08:01 02/22/19 100 50 07:59 02/22/19 98.4 20 113/63 BIPAP 07:11 (80) Intake and Output 02/21/19 02/21/19 02/22/19 1515:00 23:00 07:00 IntakeIntake Total 600 ml 50 ml OutputOutput Total 1000 ml 800 ml BalanceBalance -400 ml -750 ml Exam does not talk Constitutional: frail Neck: supple Respiratory: diminished breath sounds Cardiovascular: other (pauses. bradycardia) Gastrointestinal: soft Additional Comments On BIPAP Results Results 24hrs Laboratory Tests Test 02/21/19 13:20 02/21/19 13:27 02/21/19 16:00 02/21/19 17:44 Blood Gas Blood arterial Blood arterial Specimen Source Arterial Blood 02/21/2019 1:43: 02/21/2019 6:17: Date Drawn 07 PM 19 PM Arterial Blood 7.291 *L 7.283 *L pH (Temp corrected) Arterial Blood 57.8 H 63.5 H pCO2 (Temp correct) Arterial Blood 55.5 L 80.4 pO2 (Temp corrected) Arterial Blood 27.2 H 29.4 H HCO3 Arterial Blood 0.1 1.9 Base Excess Arterial Blood 86.4 L 94.6 L Oxygen Saturatio n Manuel Test ACCEPTAB ACCEPTAB Arterial Blood Right Radial Left Radial Gas Puncture Site Arterial 1.0 0.6 Blood Carboxyhem oglobin Arterial Blood 0.4 0.4 Methemoglobin Blood Gas A-a O2 236.0 H 204.7 H Differential Oxyhemoglobin 85.2 L 93.7 Percent Blood Gas 37.0 37.0 Temperature Blood Gas HFNC MASK - BIPAP Modality FiO2 50.0 50.0 Blood Gas CORINNE levy Critical Value vamshi Read Back Blood Gas TM ab Notified Whom Blood Gas 02/21/2019 1:58: 02/21/2019 6:22: Notified Time 28 PM 40 PM Bedside Glucose 194 134 Blood Gas 20.0 Respiration Rate Blood Gas Actual 25 Respiration Rate Blood Gas 10 Pressure Support Blood Gas 18/8 IPAP/EPAP Ratio Test 02/21/19 20:30 02/22/19 00:23 02/22/19 05:38 02/22/19 07:05 Bedside Glucose 129 87 101 White Blood 9.2 Count Red Blood Count 2.59 L Hemoglobin 7.3 L Hematocrit 24.9 L Mean Corpuscular 96.1 Volume Mean Corpuscular 28.2 L Hemoglobin Mean Corpuscular 29.3 L Hemoglobin June nt Red Cell 19.7 H Distribution Width Platelet Count 133 L Mean Platelet 12.5 H Volume Immature 0.500 H Granulocytes % Neutrophils % 80.9 H Lymphocytes % 12.9 L Monocytes % 5.6 Eosinophils % 0.0 Basophils % 0.1 Nucleated Red 0.7 H Blood Cells % Immature 0.050 H Granulocytes # Neutrophils # 7.4 Lymphocytes # 1.2 Monocytes # 0.5 Eosinophils # 0.0 Basophils # 0.0 Nucleated Red 0.1 H Blood Cells # Sodium Level 147 H Potassium Level 3.9 Chloride Level 113 H Carbon Dioxide 32 H Level Anion Gap 2 L Blood Urea 112 H Nitrogen Creatinine 1.84 H Est Glomerular Filtrat Rate mL/min Glucose Level 88 # Calcium Level 8.0 L Test 02/22/19 08:28 Bedside Glucose 111 Medications Medication Current Medications Acetaminophen (Tylenol Tab) 650 mg Q4H PRN PO PAIN Last administered on 02/11/19at 21:29; Admin Dose 650 MG; Start 01/17/19 at 18:17 Miscellaneous Information (Pending [facility] Order For Wound Care) This patient ramirez... PRN PRN XX WOUND CARE; Start 01/17/19 at 18:17 Albuterol/ Ipratropium (Duoneb) 3 ml Q2H RESP THERAPY PRN HHN SHORTNESS OF BREATH Last administered on 02/13/19at 05:52; Admin Dose 3 ML; Start 01/17/19 at 18:17 Bisacodyl (Dulcolax) 10 mg BID PRN PO CONSTIPATION; Start 01/17/19 at 18:17; Status Hold Folic Acid (Folic Acid) 1 mg DAILY PO Last administered on 02/22/19at 08:50; Admin Dose 1 MG; Start 01/17/19 at 18:17 Latanoprost (Xalatan) 1 drop HS BOTH EYES Last administered on 02/21/19at 21:00; Admin Dose 1 DROP; Start 01/17/19 at 18:17 Nitroglycerin (Nitroglycerin (Sl Tab) 0.4 Mg) 0.4 tab Q5M PRN SL CHEST PAIN; Start 01/17/19 at 18:17 IV Flush (NS 3 ml) 3 ml PER PROTOCOL IV ; Start 01/17/19 at 18:17 Glucose (Glutose) 15 gm Q15M PRN PO DECREASED GLUCOSE; Start 01/17/19 at 18:17 Glucose (Glutose) 22.5 gm Q15M PRN PO DECREASED GLUCOSE; Start 01/17/19 at 18:17 Dextrose (D50w Syringe) 25 ml Q15M PRN IV DECREASED GLUCOSE Last administered on 02/14/19at 17:23; Admin Dose 25 ML; Start 01/17/19 at 18:17 Dextrose (D50w Syringe) 50 ml Q15M PRN IV DECREASED GLUCOSE; Start 01/17/19 at 18:17 Glucagon (Glucagen) 1 mg Q15M PRN IM DECREASED GLUCOSE Last administered on 02/11/19at 17:55; Admin Dose 1 MG; Start 01/17/19 at 18:17 Glucose (Glutose) 15 gm Q15M PRN BUCCAL DECREASED GLUCOSE; Start 01/17/19 at 18:17 Bisacodyl (Dulcolax Supp) 10 mg DAILY PRN ME CONSTIPATION; Start 01/17/19 at 18:17 Zinc Acetate/ Diphenhydramine (Benadryl 2% Cr) 1 applic Q6H PRN TOP ITCHING Last administered on 02/21/19at 20:38; Admin Dose 1 APPLIC; Start 01/19/19 at 16:37 IV Flush (NS 10 ml) 10 ml PRN PRN IV IV PROTOCOL; Start 01/20/19 at 14:30 Cyanocobalamin (Vitamin B12 Inj) 1,000 mcg Q7D IM Last administered on 02/17/19at 08:30; Admin Dose 1,000 MCG; Start 02/03/19 at 09:00 Metoprolol Tartrate (Lopressor) 5 mg Q4H PRN IV HR>110 Hold SBP<100; Start 01/26/19 at 14:30 Enoxaparin Sodium (Lovenox) 60 mg DAILY SC Last administered on 02/03/19 08:06; Admin Dose 60 MG; Start 01/28/19 at 09:00; Status Hold Docusate Sodium (Colace Liquid Cup) 100 mg BID NGT ; Start 01/27/19 at 22:00; Status Hold Terazosin HCl (Hytrin) 10 mg HS NGT Last administered on 02/21/19 20:36; Admin Dose 10 MG; Start 01/28/19 at 21:00 Levothyroxine Sodium (Synthroid) 125 mcg BEFORE BREAKFAST NGT Last administered on 02/22/19 06:16; Admin Dose 125 MCG; Start 01/28/19 at 07:00 Ferrous Sulfate (Feosol Liquid Cup) 300 mg WITH MEALS GTB Last administered on 02/22/19 08:49; Admin Dose 300 MG; Start 01/28/19 at 11:30 Multivitamins (Multivitamin) 30 ml DAILY GTB Last administered on 02/22/19 08:49; Admin Dose 30 ML; Start 01/28/19 at 11:00 Nystatin/ Triamcinolone Acetonide (Mycolog Oint) 1 applic BID TOP Last administered on 02/22/19 08:52; Admin Dose 1 APPLIC; Start 01/28/19 at 22:30 Insulin Aspart (Novolog Insulin Pen) NOVOLOG *MILD* ALGORI... Q4 SC Last administered on 02/21/19 13:34; Admin Dose 2 UNIT; Start 01/29/19 at 05:00 Albuterol/ Ipratropium (Duoneb) 3 ml Q6HWA RESP THERAPY HHN Last administered on 02/22/19 07:59; Admin Dose 3 ML; Start 01/29/19 at 14:00 Epoetin Dae-epbx (RETACRIT(non-esrd)) 40,000 unit Mo@1700 SC Last administered on 02/17/19 17:18; Admin Dose 40,000 UNIT; Start 02/03/19 at 17:00 Eye Lubricant (Refresh Plus) 1 drop QID BOTH EYES Last administered on 02/22/19 08:50; Admin Dose 1 DROP; Start 02/06/19 at 09:00 Eye Lubricant (Akwa Oint) 1 applic HS LEFT EYE Last administered on 02/21/19 20:39; Admin Dose 1 APPLIC; Start 02/06/19 at 21:00 Multi-Ingredient Ointment (Aquaphor Oint 52.5 Gm) 1 applic BID TOP Last administered on 02/22/19 08:52; Admin Dose 1 APPLIC; Start 02/06/19 at 22:40 Morphine Sulfate (morphine) 0.25 mg Q4H PRN IV SEVERE PAIN LEVEL 7-10 Last administered on 02/21/19 06:06; Admin Dose 0.25 MG; Start 02/15/19 at 11:00 Metoprolol Tartrate (Lopressor) 12.5 mg BID NGT Last administered on 02/22/19 08:50; Admin Dose 12.5 MG; Start 02/17/19 at 21:00 Methylprednisolone Sodium Succinate (Solu-Medrol) 40 mg DAILY IV Last administered on 02/22/19 08:49; Admin Dose 40 MG; Start 02/21/19 at 09:00 Insulin Glargine (Lantus) 12 units DAILY@2000 SC Last administered on 02/21/19 20:42; Admin Dose 12 UNITS; Start 02/20/19 at 20:00 Furosemide (Lasix) 40 mg DAILY IV Last administered on 02/22/19 08:51; Admin Dose 40 MG; Start 02/22/19 at 09:00 Lansoprazole (Prevacid) 30 mg BID@0600,1800 NGT Last administered on 02/22/19 06:17; Admin Dose 30 MG; Start 02/21/19 at 18:00 IV Flush (NS 10 ml) 10 ml PRN PRN IV IV PROTOCOL; Start 02/21/19 at 21:00 Dextrose/Sodium Chloride 1,000 ml @ 60 mls/hr [id number] IV Last administered on 02/22/19 01:26; Admin Dose 60 MLS/HR; Start 02/22/19 at 01:30 COOPER CARO Feb 22, 2019 10:59
--- NOTE | 2019-02-22 11:39 | CONS ---
Consult Date/Type/Reason Admit Date/Time Jan 17, 2019 at 15:58 Initial Consult Date Type of Consultation: Pulm/CCM Requesting Provider: IVAN AKHTAR MD Date/Time of Note DATE: 02/22/19 TIME: 11:36 Subjective NO acute change - pt on BIPAP- nor really responding - edema - rate controlled - family at bedside - aware of care and prognosis. R Objective Vitals Vital Signs Date Temp Pulse Resp B/P (MAP) Pulse Ox O2 O2 Flow FiO2 Time Delivery Rate 02/22/19 62 08:01 02/22/19 100 50 07:59 02/22/19 98.4 20 113/63 BIPAP 07:11 (80) Intake and Output 02/21/19 02/21/19 02/22/19 1515:00 23:00 07:00 IntakeIntake Total 600 ml 50 ml OutputOutput Total 1000 ml 800 ml BalanceBalance -400 ml -750 ml Exam General: WN/WD/NAD, AOx 0 BiPAP on HEENT: Unicetric/atraumatic/EOMI (does not follow commands) NECK: JVD elevated, no thyromegaly Lymph: no lymphadenopathy HEART: irregular with no S3, II/ systolic murmur at apex LUNGS: Coarse sounds ABD: soft, NT, ND, +BS : Intact Neuro: non focal SKIN: chronic changes EXT: + edema Results/Medications Result Diagram: 02/22/1970402/22/19704 Results 24 hrs Laboratory Tests Test 02/21/19 13:20 02/21/19 13:27 02/21/19 16:00 02/21/19 17:44 Blood Gas Blood arterial Blood arterial Specimen Source Arterial Blood 02/21/2019 1:43: 02/21/2019 6:17: Date Drawn 07 PM 19 PM Arterial Blood 7.291 *L 7.283 *L pH (Temp corrected) Arterial Blood 57.8 H 63.5 H pCO2 (Temp correct) Arterial Blood 55.5 L 80.4 pO2 (Temp corrected) Arterial Blood 27.2 H 29.4 H HCO3 Arterial Blood 0.1 1.9 Base Excess Arterial Blood 86.4 L 94.6 L Oxygen Saturatio n Manuel Test ACCEPTAB ACCEPTAB Arterial Blood Right Radial Left Radial Gas Puncture Site Arterial 1.0 0.6 Blood Carboxyhem oglobin Arterial Blood 0.4 0.4 Methemoglobin Blood Gas A-a O2 236.0 H 204.7 H Differential Oxyhemoglobin 85.2 L 93.7 Percent Blood Gas 37.0 37.0 Temperature Blood Gas HFNC MASK - BIPAP Modality FiO2 50.0 50.0 Blood Gas CORINNE levy Critical Value rn Read Back Blood Gas TM ab Notified Whom Blood Gas 02/21/2019 1:58: 02/21/2019 6:22: Notified Time 28 PM 40 PM Bedside Glucose 194 134 Blood Gas 20.0 Respiration Rate Blood Gas Actual 25 Respiration Rate Blood Gas 10 Pressure Support Blood Gas 18/8 IPAP/EPAP Ratio Test 02/21/19 20:30 02/22/19 00:23 02/22/19 05:38 02/22/19 07:05 Bedside Glucose 129 87 101 White Blood 9.2 Count Red Blood Count 2.59 L Hemoglobin 7.3 L Hematocrit 24.9 L Mean Corpuscular 96.1 Volume Mean Corpuscular 28.2 L Hemoglobin Mean Corpuscular 29.3 L Hemoglobin June nt Red Cell 19.7 H Distribution Width Platelet Count 133 L Mean Platelet 12.5 H Volume Immature 0.500 H Granulocytes % Neutrophils % 80.9 H Lymphocytes % 12.9 L Monocytes % 5.6 Eosinophils % 0.0 Basophils % 0.1 Nucleated Red 0.7 H Blood Cells % Immature 0.050 H Granulocytes # Neutrophils # 7.4 Lymphocytes # 1.2 Monocytes # 0.5 Eosinophils # 0.0 Basophils # 0.0 Nucleated Red 0.1 H Blood Cells # Sodium Level 147 H Potassium Level 3.9 Chloride Level 113 H Carbon Dioxide 32 H Level Anion Gap 2 L Blood Urea 112 H Nitrogen Creatinine 1.84 H Est Glomerular Filtrat Rate mL/min Glucose Level 88 # Calcium Level 8.0 L Test 02/22/19 08:28 Bedside Glucose 111 Home Meds Active Scripts Apixaban* (Eliquis*) 5 Mg Tablet, 2.5 MG PO BID for 30 Days, TAB Prov:IVAN AKHTAR MD 12/20/18 Metoprolol Tartrate* (Lopressor*) 50 Mg Tab, 50 MG PO BID for 30 Days, TAB Prov:COOPER CARO 12/20/18 Reported Medications Furosemide* (Lasix*) 20 Mg Tablet, 20 MG PO BID, TAB 4/14/19 Polyethylene Glycol* (Miralax*) 17 Gm Powd.pack, 17 GM PO DAILY, #30 PACKET 12/15/18 Nifedipine* (Nifedipine ER*) 60 Mg Tablet.sa, 60 MG PO DAILY, TAB.SA 12/15/18 Bisacodyl* (Bisacodyl*) 5 Mg Tablet.dr, 10 MG PO BID PRN for CONSTIPATION, TAB 12/15/18 Pregabalin* (Lyrica*) 25 Mg Capsule, 25 MG PO TID, CAP 12/15/18 Bimatoprost* (Lumigan*) 0.01%-5 Ml Opht Drops, 1 DROP BOTH EYES HS, EA 03/02/18 Cetirizine Hcl* (Cetirizine Hcl*) 10 Mg Tablet, 10 MG PO DAILY, #30 TAB 03/02/18 Insulin Glargine* (Lantus*) 100 Unit/Ml Soln, 10 UNIT SC QHS, #1 VIAL 03/02/18 Ergocalciferol (Vitamin D2) (VITAMIN D2) 2,000 Unit Tablet, 2000 UNIT PO DAILY, TAB 03/02/18 Famotidine* (Famotidine*) 20 Mg Tablet, 20 MG PO DAILY, #30 TAB 03/02/18 Ferrous Sulfate* (Ferrous Sulfate*) 325 Mg Tabec, 325 MG PO BID, TAB 03/02/18 Nitroglycerin* (Nitrostat*) 0.4 Mg Tab.subl, 0.4 MG SL Q5MIN PRN for CHEST PAIN, BOTTLE 03/02/18 Terazosin Hcl* (Terazosin Hcl*) 10 Mg Capsule, 10 MG PO HS, CAP 03/02/18 Levothyroxine Sodium* (Levoxyl*) 125 Mcg Tablet, 125 MCG PO BEFORE BREAKFAST, #30 TAB 03/02/18 Allopurinol* (Allopurinol*) 100 Mg Tablet, 100 MG PO BID, TAB 03/02/18 Atorvastatin* (Atorvastatin*) 40 Mg Tablet, 40 MG PO QHS, #30 TAB 03/02/18 Folic Acid* (Folic Acid*) 1 Mg Tablet, 1 MG PO DAILY, TAB 03/02/18 Medications Current Medications Acetaminophen (Tylenol Tab) 650 mg Q4H PRN PO PAIN Last administered on 02/11/19at 21:29; Admin Dose 650 MG; Start 01/17/19 at 18:17 Miscellaneous Information (Pending [facility] Order For Wound Care) This patient ramirez... PRN PRN XX WOUND CARE; Start 01/17/19 at 18:17 Albuterol/ Ipratropium (Duoneb) 3 ml Q2H RESP THERAPY PRN HHN SHORTNESS OF BREATH Last administered on 02/13/19at 05:52; Admin Dose 3 ML; Start 01/17/19 at 18:17 Bisacodyl (Dulcolax) 10 mg BID PRN PO CONSTIPATION; Start 01/17/19 at 18:17; Status Hold Folic Acid (Folic Acid) 1 mg DAILY PO Last administered on 02/22/19at 08:50; Admin Dose 1 MG; Start 01/17/19 at 18:17 Latanoprost (Xalatan) 1 drop HS BOTH EYES Last administered on 02/21/19at 21:00; Admin Dose 1 DROP; Start 01/17/19 at 18:17 Nitroglycerin (Nitroglycerin (Sl Tab) 0.4 Mg) 0.4 tab Q5M PRN SL CHEST PAIN; Start 01/17/19 at 18:17 IV Flush (NS 3 ml) 3 ml PER PROTOCOL IV ; Start 01/17/19 at 18:17 Glucose (Glutose) 15 gm Q15M PRN PO DECREASED GLUCOSE; Start 01/17/19 at 18:17 Glucose (Glutose) 22.5 gm Q15M PRN PO DECREASED GLUCOSE; Start 01/17/19 at 18:17 Dextrose (D50w Syringe) 25 ml Q15M PRN IV DECREASED GLUCOSE Last administered on 02/14/19at 17:23; Admin Dose 25 ML; Start 01/17/19 at 18:17 Dextrose (D50w Syringe) 50 ml Q15M PRN IV DECREASED GLUCOSE; Start 01/17/19 at 18:17 Glucagon (Glucagen) 1 mg Q15M PRN IM DECREASED GLUCOSE Last administered on 02/11/19at 17:55; Admin Dose 1 MG; Start 01/17/19 at 18:17 Glucose (Glutose) 15 gm Q15M PRN BUCCAL DECREASED GLUCOSE; Start 01/17/19 at 18:17 Bisacodyl (Dulcolax Supp) 10 mg DAILY PRN [place] CONSTIPATION; Start 01/17/19 at 18:17 Zinc Acetate/ Diphenhydramine (Benadryl 2% Cr) 1 applic Q6H PRN TOP ITCHING Last administered on 02/21/19 20:38; Admin Dose 1 APPLIC; Start 01/19/19 at 16:37 IV Flush (NS 10 ml) 10 ml PRN PRN IV IV PROTOCOL; Start 01/20/19 at 14:30 Cyanocobalamin (Vitamin B12 Inj) 1,000 mcg Q7D IM Last administered on 08:30; Admin Dose 1,000 MCG; Start 02/03/19 at 09:00 Metoprolol Tartrate (Lopressor) 5 mg Q4H PRN IV HR>110 Hold SBP<100; Start 01/26/19 at 14:30 Enoxaparin Sodium (Lovenox) 60 mg DAILY SC Last administered on 02/03/19 08:06; Admin Dose 60 MG; Start 01/28/19 at 09:00; Status Hold Docusate Sodium (Colace Liquid Cup) 100 mg BID NGT ; Start 01/27/19 at 22:00; Status Hold Terazosin HCl (Hytrin) 10 mg HS NGT Last administered on 02/21/19 20:36; Admin Dose 10 MG; Start 01/28/19 at 21:00 Levothyroxine Sodium (Synthroid) 125 mcg BEFORE BREAKFAST NGT Last administered on 02/22/19 06:16; Admin Dose 125 MCG; Start 01/28/19 at 07:00 Ferrous Sulfate (Feosol Liquid Cup) 300 mg WITH MEALS GTB Last administered on 02/22/19 08:49; Admin Dose 300 MG; Start 01/28/19 at 11:30 Multivitamins (Multivitamin) 30 ml DAILY GTB Last administered on 02/22/19 08:49; Admin Dose 30 ML; Start 01/28/19 at 11:00 Nystatin/ Triamcinolone Acetonide (Mycolog Oint) 1 applic BID TOP Last administered on 02/22/19 08:52; Admin Dose 1 APPLIC; Start 01/28/19 at 22:30 Insulin Aspart (Novolog Insulin Pen) NOVOLOG *MILD* ALGORI... Q4 SC Last administered on 02/21/19 13:34; Admin Dose 2 UNIT; Start 01/29/19 at 05:00 Albuterol/ Ipratropium (Duoneb) 3 ml Q6HWA RESP THERAPY HHN Last administered on 02/22/19 07:59; Admin Dose 3 ML; Start 01/29/19 at 14:00 Epoetin Dae-epbx (RETACRIT(non-esrd)) 40,000 unit Mo@1700 SC Last administered on 02/17/19 17:18; Admin Dose 40,000 UNIT; Start 02/03/19 at 17:00 Eye Lubricant (Refresh Plus) 1 drop QID BOTH EYES Last administered on 02/22/19 08:50; Admin Dose 1 DROP; Start 02/06/19 at 09:00 Eye Lubricant (Akwa Oint) 1 applic HS LEFT EYE Last administered on 02/21/19 20:39; Admin Dose 1 APPLIC; Start 02/06/19 at 21:00 Multi-Ingredient Ointment (Aquaphor Oint 52.5 Gm) 1 applic BID TOP Last administered on 02/22/19 08:52; Admin Dose 1 APPLIC; Start 02/06/19 at 22:40 Morphine Sulfate (morphine) 0.25 mg Q4H PRN IV SEVERE PAIN LEVEL 7-10 Last administered on 02/21/19 06:06; Admin Dose 0.25 MG; Start 02/15/19 at 11:00 Methylprednisolone Sodium Succinate (Solu-Medrol) 40 mg DAILY IV Last administered on 02/22/19 08:49; Admin Dose 40 MG; Start 02/21/19 at 09:00 Insulin Glargine (Lantus) 12 units DAILY@2000 SC Last administered on 02/21/19 20:42; Admin Dose 12 UNITS; Start 02/20/19 at 20:00 Furosemide (Lasix) 40 mg DAILY IV Last administered on 02/22/19 08:51; Admin Dose 40 MG; Start 02/22/19 at 09:00 Lansoprazole (Prevacid) 30 mg BID@0600,1800 NGT Last administered on 02/22/19 06:17; Admin Dose 30 MG; Start 02/21/19 at 18:00 IV Flush (NS 10 ml) 10 ml PRN PRN IV IV PROTOCOL; Start 02/21/19 at 21:00 Dextrose/Sodium Chloride 1,000 ml @ 60 mls/hr [id number] IV Last administered on 02/22/19at 01:26; Admin Dose 60 MLS/HR; Start 02/22/19 at 01:30 Assessment/Plan Hospital Course (Demo Recall) 1. Atrial fibrillation, currently rate controlled.-off systemic anticoagulation due to anemia. RATE CONTROLLED. BP low but stable. No new bleeding now, but H/H down. 2. CHF - chronic, DD. EF of 60%.Spot diuresis as needed. Con't to follow. Overall unchanged. CHRONIC. Good urine output, but increased edema. 3. Tricuspid regurgitation, moderate by most recent echo. 4. Acute on chronic renal failure - Cr up to 2.1 - avoid nephrotoxic meds. . 5. Hyponatremia - going up to 147s - stable. 5. Possible pneumonia - on anti-bx now. ID follows On pressors now. Traeted. 6. History of coronary artery disease, status post coronary artery bypass graft surgery. Treated. 7. Dyslipidemia. 8. Rheumatoid arthritis - Rx per rheumatology. 9. Groin cellulitis. 10. Anemia-worsening again today requiring transfusions - trending down, will monitor. 11. Diabetes mellitus. 12. Sepsis - skin looks better. Con't supportive rX. LOU PATINO MD Feb 22, 2019 11:39
--- NOTE | 2019-02-22 14:26 | CONS ---
Consultation Date/Type/Reason Admit Date/Time Jan 17, 2019 at 15:58 Initial Consult Date SUBJECTIVE: PT is lethargic, on BIPAP, afebrile. No acute events over night VS: stable T: 97.7 LABS: Reviewed. WBC- 9.2 Microbiology: blood cultures repeated on January 17 grew coag negative staph suspicious of onset urine culture has been negative ==Skin biopsy revealed no evidence of vasculitis no evidence of malignancy. Please see full report in chart ==Wound culture grew Corynebacterium species. Sputum culture grew E. coli C dif neg Antimicrobials: off of antbx Indwelling: Left subclavian triple-lumen catheter, Wade catheter, NG tube Physical examination: GEN: Obese well-developed chronically ill-appearing -German man, who is awake in no distress. HENT: Head atraumatic normocephalic, sclera nonicteric. Neck is supple PULM: chest rise symmetrical breath, sounds diminished bases. Heart: S1-S2. Abdomen obese soft bowel sounds present extremities without cyanosis, bilateral edema Assessment: 1. S/p sepsis with shock 2. Acute hypoxemic respiratory failure, likely ongoing aspiration 2. Acute encephalopathy 3. Seizures 4. Healthcare acquired pneumonia==> treated 5. Coronary artery disease/history of CABG 6. Advanced rheumatoid arthritis 5. Chronic atrial fibrillation 6. Diabetes 7. BPH 9. Acute on chronic anemia===> s/p EGD/colonoscopy 01/09/19 10. Status post right epididymitis 11. Pancreatic lesion per CT, unlikely neoplasm per oncology notes 12. 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 Skin lesions, s/p punch bx, pathology consistent with allergic reaction 14. DNR/DNI Plan: Remains unchanged. Will monitor off of antibiotics. Overall prognosis poor Requesting Provider: IVAN AKHTAR MD Date/Time of Note DATE: 02/22/19 TIME: 14:22 Exam/Review of Systems Exam Vitals Vital Signs Date Temp Pulse Resp B/P (MAP) Pulse Ox O2 O2 Flow FiO2 Time Delivery Rate 02/22/19 65 100 50 13:05 02/22/19 97.7 20 134/58 BIPAP 11:35 (83) Intake and Output 02/21/19 02/21/19 02/22/19 1515:00 23:00 07:00 IntakeIntake Total 600 ml 50 ml OutputOutput Total 1000 ml 800 ml BalanceBalance -400 ml -750 ml Results Result Diagram: 02/22/19 0705 02/22/19 0705 Results 24hrs Laboratory Tests Test 02/21/19 16:00 02/21/19 17:44 02/21/19 20:30 02/22/19 00:23 Blood Gas Blood arterial Specimen Source Arterial Blood 02/21/2019 6:17:19 Date Drawn PM Arterial Blood pH 7.283 *L (Temp corrected) Arterial Blood 63.5 H pCO2 (Temp correct) Arterial Blood 80.4 pO2 (Temp corrected) Arterial Blood 29.4 H HCO3 Arterial Blood 1.9 Base Excess Arterial Blood 94.6 L Oxygen Saturation Manuel Test ACCEPTAB Arterial Blood Left Radial Gas Puncture Site Arterial 0.6 Blood Carboxyhemo globin Arterial Blood 0.4 Methemoglobin Blood Gas A-a O2 204.7 H Differential Oxyhemoglobin 93.7 Percent Blood Gas 37.0 Temperature Blood Gas 20.0 Respiration Rate Blood Gas Actual 25 Respiration Rate Blood Gas MASK - BIPAP Modality FiO2 50.0 Blood Gas 10 Pressure Support Blood Gas 18/8 IPAP/EPAP Ratio Blood Gas cam bonds Critical Value Read Back Blood Gas ab Notified Whom Blood Gas 02/21/2019 6:22:40 Notified Time PM Bedside Glucose 134 129 87 Test 02/22/19 05:38 02/22/19 07:05 02/22/19 08:28 02/22/19 13:36 Bedside Glucose 101 111 121 White Blood Count 9.2 Red Blood Count 2.59 L Hemoglobin 7.3 L Hematocrit 24.9 L Mean Corpuscular 96.1 Volume Mean Corpuscular 28.2 L Hemoglobin Mean Corpuscular 29.3 L Hemoglobin Concen t Red Cell 19.7 H Distribution Width Platelet Count 133 L Mean Platelet 12.5 H Volume Immature 0.500 H Granulocytes % Neutrophils % 80.9 H Lymphocytes % 12.9 L Monocytes % 5.6 Eosinophils % 0.0 Basophils % 0.1 Nucleated Red 0.7 H Blood Cells % Immature 0.050 H Granulocytes # Neutrophils # 7.4 Lymphocytes # 1.2 Monocytes # 0.5 Eosinophils # 0.0 Basophils # 0.0 Nucleated Red 0.1 H Blood Cells # Sodium Level 147 H Potassium Level 3.9 Chloride Level 113 H Carbon Dioxide 32 H Level Anion Gap 2 L Blood Urea 112 H Nitrogen Creatinine 1.84 H Est Glomerular Filtrat Rate mL/min Glucose Level 88 # Calcium Level 8.0 L Medications Medication Current Medications Acetaminophen (Tylenol Tab) 650 mg Q4H PRN PO PAIN Last administered on 02/11/19at 21:29; Admin Dose 650 MG; Start 01/17/19 at 18:17 Miscellaneous Information (Pending [facility] Order For Wound Care) This patient ramirez... PRN PRN XX WOUND CARE; Start 01/17/19 at 18:17 Albuterol/ Ipratropium (Duoneb) 3 ml Q2H RESP THERAPY PRN HHN SHORTNESS OF BREATH Last administered on 02/13/19at 05:52; Admin Dose 3 ML; Start 01/17/19 at 18:17 Bisacodyl (Dulcolax) 10 mg BID PRN PO CONSTIPATION; Start 01/17/19 at 18:17; Status Hold Folic Acid (Folic Acid) 1 mg DAILY PO Last administered on 02/22/19at 08:50; Admin Dose 1 MG; Start 01/17/19 at 18:17 Latanoprost (Xalatan) 1 drop HS BOTH EYES Last administered on 02/21/19at 21:00; Admin Dose 1 DROP; Start 01/17/19 at 18:17 Nitroglycerin (Nitroglycerin (Sl Tab) 0.4 Mg) 0.4 tab Q5M PRN SL CHEST PAIN; Start 01/17/19 at 18:17 IV Flush (NS 3 ml) 3 ml PER PROTOCOL IV ; Start 01/17/19 at 18:17 Glucose (Glutose) 15 gm Q15M PRN PO DECREASED GLUCOSE; Start 01/17/19 at 18:17 Glucose (Glutose) 22.5 gm Q15M PRN PO DECREASED GLUCOSE; Start 01/17/19 at 18:17 Dextrose (D50w Syringe) 25 ml Q15M PRN IV DECREASED GLUCOSE Last administered on 02/14/19at 17:23; Admin Dose 25 ML; Start 01/17/19 at 18:17 Dextrose (D50w Syringe) 50 ml Q15M PRN IV DECREASED GLUCOSE; Start 01/17/19 at 18:17 Glucagon (Glucagen) 1 mg Q15M PRN IM DECREASED GLUCOSE Last administered on 02/11/19at 17:55; Admin Dose 1 MG; Start 01/17/19 at 18:17 Glucose (Glutose) 15 gm Q15M PRN BUCCAL DECREASED GLUCOSE; Start 01/17/19 at 18:17 Bisacodyl (Dulcolax Supp) 10 mg DAILY PRN [place] CONSTIPATION; Start 01/17/19 at 18:17 Zinc Acetate/ Diphenhydramine (Benadryl 2% Cr) 1 applic Q6H PRN TOP ITCHING Last administered on 02/21/19at 20:38; Admin Dose 1 APPLIC; Start 01/19/19 at 16:37 IV Flush (NS 10 ml) 10 ml PRN PRN IV IV PROTOCOL; Start 01/20/19 at 14:30 Cyanocobalamin (Vitamin B12 Inj) 1,000 mcg Q7D IM Last administered on 02/17/19 08:30; Admin Dose 1,000 MCG; Start 02/03/19 at 09:00 Metoprolol Tartrate (Lopressor) 5 mg Q4H PRN IV HR>110 Hold SBP<100; Start 01/26/19 at 14:30 Enoxaparin Sodium (Lovenox) 60 mg DAILY SC Last administered on 02/03/19 08 :06; Admin Dose 60 MG; Start 01/28/19 at 09:00; Status Hold Docusate Sodium (Colace Liquid Cup) 100 mg BID NGT ; Start 01/27/19 at 22:00; Status Hold Terazosin HCl (Hytrin) 10 mg HS NGT Last administered on 02/21/19 20:36; Admin Dose 10 MG; Start 01/28/19 at 21:00 Levothyroxine Sodium (Synthroid) 125 mcg BEFORE BREAKFAST NGT Last administered on 02/22/19 06:16; Admin Dose 125 MCG; Start 01/28/19 at 07:00 Ferrous Sulfate (Feosol Liquid Cup) 300 mg WITH MEALS GTB Last administered on 02/22/19 13:13; Admin Dose 300 MG; Start 01/28/19 at 11:30 Multivitamins (Multivitamin) 30 ml DAILY GTB Last administered on 02/22/19 08:49; Admin Dose 30 ML; Start 01/28/19 at 11:00 Nystatin/ Triamcinolone Acetonide (Mycolog Oint) 1 applic BID TOP Last administered on 02/22/19 08:52; Admin Dose 1 APPLIC; Start 01/28/19 at 22:30 Insulin Aspart (Novolog Insulin Pen) NOVOLOG *MILD* ALGORI... Q4 SC Last admin istered on 02/21/19 13:34; Admin Dose 2 UNIT; Start 01/29/19 at 05:00 Albuterol/ Ipratropium (Duoneb) 3 ml Q6HWA RESP THERAPY HHN Last administered on 02/22/19 13:02; Admin Dose 3 ML; Start 01/29/19 at 14:00 Epoetin Dae-epbx (RETACRIT(non-esrd)) 40,000 unit Mo@1700 SC Last administered on 02/17/19 17:18; Admin Dose 40,000 UNIT; Start 02/03/19 at 17:00 Eye Lubricant (Refresh Plus) 1 drop QID BOTH EYES Last administered on 02/22/19 13:35; Admin Dose 1 DROP; Start 02/06/19 at 09:00 Eye Lubricant (Akwa Oint) 1 applic HS LEFT EYE Last administered on 02/21/19 20:39; Admin Dose 1 APPLIC; Start 02/06/19 at 21:00 Multi-Ingredient Ointment (Aquaphor Oint 52.5 Gm) 1 applic BID TOP Last adminis tered on 02/22/19 08:52; Admin Dose 1 APPLIC; Start 02/06/19 at 22:40 Morphine Sulfate (morphine) 0.25 mg Q4H PRN IV SEVERE PAIN LEVEL 7-10 Last administered on 02/21/19 06:06; Admin Dose 0.25 MG; Start 02/15/19 at 11:00 Methylprednisolone Sodium Succinate (Solu-Medrol) 40 mg DAILY IV Last admini stered on 02/22/19 08:49; Admin Dose 40 MG; Start 02/21/19 at 09:00 Insulin Glargine (Lantus) 12 units DAILY@2000 SC Last administered on 02/21/19 20:42; Admin Dose 12 UNITS; Start 02/20/19 at 20:00 Furosemide (Lasix) 40 mg DAILY IV Last administered on 02/22/19 08:51; Admin Dose 40 MG; Start 02/22/19 at 09:00 Lansoprazole (Prevacid) 30 mg BID@0600,1800 NGT Last administered on 02/22/19at 06:17; Admin Dose 30 MG; Start 02/21/19 at 18:00 IV Flush (NS 10 ml) 10 ml PRN PRN IV IV PROTOCOL; Start 02/21/19 at 21:00 Dextrose/Sodium Chloride 1,000 ml @ 60 mls/hr [id number] IV Last administered on 02/22/19at 01:26; Admin Dose 60 MLS/HR; Start 02/22/19 at 01:30 LIYA SEGUNDO Feb 22, 2019 14:25
--- NOTE | 2019-02-22 16:40 | CONS ---
Consult Date/Type/Reason Admit Date/Time Jan 17, 2019 at 15:58 Initial Consult Date 01/18/19 Type of Consultation: Pulm/CCM Requesting Provider: IVAN AKHTAR MD Date/Time of Note DATE: 02/22/19 TIME: 16:32 Subjective No events. Remains on BiPAP. Objective Vitals Vital Signs Date Temp Pulse Resp B/P (MAP) Pulse Ox O2 O2 Flow FiO2 Time Delivery Rate 02/22/19 97.1 61 21 123/57 100 BIPAP 15:40 (79) 02/22/19 50 13:05 Intake and Output 02/21/19 02/21/19 02/22/19 1515:00 23:00 07:00 IntakeIntake Total 600 ml 50 ml OutputOutput Total 1000 ml 800 ml BalanceBalance -400 ml -750 ml Exam NECK: Supple. No JVD or lymphadenopathy. CARDIAC EXAM: S1, S2. Early systolic ejection murmur. CHEST: Diminished air entry bilaterally ABDOMEN: Soft, nontender. No guarding or rebound. EXTREMITIES: No cyanosis, clubbing or edema. Results/Medications Result Diagram: 02/22/19 0702/22/19 07 Results 24 hrs Laboratory Tests Test 02/21/19 17:44 02/21/19 20:30 02/22/19 00:23 02/22/19 05:38 Bedside Glucose 134 129 87 101 Test 02/22/19 07:05 02/22/19 08:28 02/22/19 13:36 White Blood Count 9.2 Red Blood Count 2.59 L Hemoglobin 7.3 L Hematocrit 24.9 L Mean Corpuscular 96.1 Volume Mean Corpuscular 28.2 L Hemoglobin Mean Corpuscular 29.3 L Hemoglobin Concent Red Cell Distribution 19.7 H Width Platelet Count 133 L Mean Platelet Volume 12.5 H Immature Granulocytes 0.500 H % Neutrophils % 80.9 H Lymphocytes % 12.9 L Monocytes % 5.6 Eosinophils % 0.0 Basophils % 0.1 Nucleated Red Blood 0.7 H Cells % Immature Granulocytes 0.050 H # Neutrophils # 7.4 Lymphocytes # 1.2 Monocytes # 0.5 Eosinophils # 0.0 Basophils # 0.0 Nucleated Red Blood 0.1 H Cells # Sodium Level 147 H Potassium Level 3.9 Chloride Level 113 H Carbon Dioxide Level 32 H Anion Gap 2 L Blood Urea Nitrogen 112 H Creatinine 1.84 H Est Glomerular Filtrat Rate mL/min Glucose Level 88 # Calcium Level 8.0 L Bedside Glucose 111 121 Home Meds Active Scripts Apixaban* (Eliquis*) 5 Mg Tablet, 2.5 MG PO BID for 30 Days, TAB Prov:IVAN AKHTAR MD 12/20/18 Metoprolol Tartrate* (Lopressor*) 50 Mg Tab, 50 MG PO BID for 30 Days, TAB Prov:COOPER CARO 12/20/18 Reported Medications Furosemide* (Lasix*) 20 Mg Tablet, 20 MG PO BID, TAB 01/05/19 Polyethylene Glycol* (Miralax*) 17 Gm Powd.pack, 17 GM PO DAILY, #30 PACKET 12/15/18 Nifedipine* (Nifedipine ER*) 60 Mg Tablet.sa, 60 MG PO DAILY, TAB.SA 12/15/18 Bisacodyl* (Bisacodyl*) 5 Mg Tablet.dr, 10 MG PO BID PRN for CONSTIPATION, TAB 12/15/18 Pregabalin* (Lyrica*) 25 Mg Capsule, 25 MG PO TID, CAP 12/15/18 Bimatoprost* (Lumigan*) 0.01%-5 Ml Opht Drops, 1 DROP BOTH EYES HS, EA 03/02/18 Cetirizine Hcl* (Cetirizine Hcl*) 10 Mg Tablet, 10 MG PO DAILY, #30 TAB 03/02/18 Insulin Glargine* (Lantus*) 100 Unit/Ml Soln, 10 UNIT SC QHS, #1 VIAL 03/02/18 Ergocalciferol (Vitamin D2) (VITAMIN D2) 2,000 Unit Tablet, 2000 UNIT PO DAILY, TAB 03/02/18 Famotidine* (Famotidine*) 20 Mg Tablet, 20 MG PO DAILY, #30 TAB 03/02/18 Ferrous Sulfate* (Ferrous Sulfate*) 325 Mg Tabec, 325 MG PO BID, TAB 03/02/18 Nitroglycerin* (Nitrostat*) 0.4 Mg Tab.subl, 0.4 MG SL Q5MIN PRN for CHEST PAIN, BOTTLE 03/02/18 Terazosin Hcl* (Terazosin Hcl*) 10 Mg Capsule, 10 MG PO HS, CAP 6/9/18 Levothyroxine Sodium* (Levoxyl*) 125 Mcg Tablet, 125 MCG PO BEFORE BREAKFAST, #30 TAB 03/02/18 Allopurinol* (Allopurinol*) 100 Mg Tablet, 100 MG PO BID, TAB 03/02/18 Atorvastatin* (Atorvastatin*) 40 Mg Tablet, 40 MG PO QHS, #30 TAB 03/02/18 Folic Acid* (Folic Acid*) 1 Mg Tablet, 1 MG PO DAILY, TAB 03/02/18 Medications Current Medications Acetaminophen (Tylenol Tab) 650 mg Q4H PRN PO PAIN Last administered on 02/11/19at 21:29; Admin Dose 650 MG; Start 01/17/19 at 18:17 [facility] This patient ramirez... PRN PRN XX WOUND CARE; Start 01/17/19 at 18:17 Albuterol/ Ipratropium (Duoneb) 3 ml Q2H RESP THERAPY PRN HHN SHORTNESS OF BREATH Last administered on 02/13/19at 05:52; Admin Dose 3 ML; Start 01/17/19 at 18:17 Bisacodyl (Dulcolax) 10 mg BID PRN PO CONSTIPATION; Start 01/17/19 at 18:17; Status Hold Folic Acid (Folic Acid) 1 mg DAILY PO Last administered on 02/22/19at 08:50; Admin Dose 1 MG; Start 01/17/19 at 18:17 Latanoprost (Xalatan) 1 drop HS BOTH EYES Last administered on 02/21/19at 21:00; Admin Dose 1 DROP; Start 01/17/19 at 18:17 Nitroglycerin (Nitroglycerin (Sl Tab) 0.4 Mg) 0.4 tab Q5M PRN SL CHEST PAIN; Start 01/17/19 at 18:17 IV Flush (NS 3 ml) 3 ml PER PROTOCOL IV ; Start 01/17/19 at 18:17 Glucose (Glutose) 15 gm Q15M PRN PO DECREASED GLUCOSE; Start 01/17/19 at 18:17 Glucose (Glutose) 22.5 gm Q15M PRN PO DECREASED GLUCOSE; Start 01/17/19 at 18:17 Dextrose (D50w Syringe) 25 ml Q15M PRN IV DECREASED GLUCOSE Last administered on 02/14/19at 17:23; Admin Dose 25 ML; Start 01/17/19 at 18:17 Dextrose (D50w Syringe) 50 ml Q15M PRN IV DECREASED GLUCOSE; Start 01/17/19 at 18:17 Glucagon (Glucagen) 1 mg Q15M PRN IM DECREASED GLUCOSE Last administered on 02/11/19at 17:55; Admin Dose 1 MG; Start 01/17/19 at 18:17 Glucose (Glutose) 15 gm Q15M PRN BUCCAL DECREASED GLUCOSE; Start 01/17/19 at 18:17 Bisacodyl (Dulcolax Supp) 10 mg DAILY PRN [place] CONSTIPATION; Start 01/17/19 at 18:17 Zinc Acetate/ Diphenhydramine (Benadryl 2% Cr) 1 applic Q6H PRN TOP ITCHING Last administered on 02/21/19at 20:38; Admin Dose 1 APPLIC; Start 01/19/19 at 16:37 IV Flush (NS 10 ml) 10 ml PRN PRN IV IV PROTOCOL; Start 01/20/19 at 14:30 Cyanocobalamin (Vitamin B12 Inj) 1,000 mcg Q7D IM Last administered on 02/17/19at 08:30; Admin Dose 1,000 MCG; Start 02/03/19 at 09:00 Metoprolol Tartrate (Lopressor) 5 mg Q4H PRN IV HR>110 Hold SBP<100; Start 01/26/19 at 14:30 Enoxaparin Sodium (Lovenox) 60 mg DAILY SC Last administered on 02/03/19at 08:06; Admin Dose 60 MG; Start 01/28/19 at 09:00; Status Hold Docusate Sodium (Colace Liquid Cup) 100 mg BID NGT ; Start 01/27/19 at 22:00; Status Hold Terazosin HCl (Hytrin) 10 mg HS NGT Last administered on 02/21/19at 20:36; Admin Dose 10 MG; Start 01/28/19 at 21:00 Levothyroxine Sodium (Synthroid) 125 mcg BEFORE BREAKFAST NGT Last administered on 02/22/19at 06:16; Admin Dose 125 MCG; Start 01/28/19 at 07:00 Ferrous Sulfate (Feosol Liquid Cup) 300 mg WITH MEALS GTB Last administered on 02/22/19at 13:13; Admin Dose 300 MG; Start 01/28/19 at 11:30 Multivitamins (Multivitamin) 30 ml DAILY GTB Last administered on 02/22/19 08:49; Admin Dose 30 ML; Start 01/28/19 at 11:00 Nystatin/ Triamcinolone Acetonide (Mycolog Oint) 1 applic BID TOP Last admin istered on 02/22/19 08:52; Admin Dose 1 APPLIC; Start 01/28/19 at 22:30 Insulin Aspart (Novolog Insulin Pen) NOVOLOG *MILD* ALGORI... Q4 SC Last administered on 02/21/19 13:34; Admin Dose 2 UNIT; Start 01/29/19 at 05:00 Albuterol/ Ipratropium (Duoneb) 3 ml Q6HWA RESP THERAPY HHN Last administered on 02/22/19 13:02; Admin Dose 3 ML; Start 01/29/19 at 14:00 Epoetin Dae-epbx (RETACRIT(non-esrd)) 40,000 unit Mo@1700 SC Last administered on 02/17/19 17:18; Admin Dose 40,000 UNIT; Start 02/03/19 at 17:00 Eye Lubricant (Refresh Plus) 1 drop QID BOTH EYES Last administered on 02/22/19 13:35; Admin Dose 1 DROP; Start 02/06/19 at 09:00 Eye Lubricant (Akwa Oint) 1 applic HS LEFT EYE Last administered on 02/21/19 20:39; Admin Dose 1 APPLIC; Start 02/06/19 at 21:00 Multi-Ingredient Ointment (Aquaphor Oint 52.5 Gm) 1 applic BID TOP Last administered on 02/22/19 08:52; Admin Dose 1 APPLIC; Start 02/06/19 at 22:40 Morphine Sulfate (morphine) 0.25 mg Q4H PRN IV SEVERE PAIN LEVEL 7-10 Last admi nistered on 02/21/19 06:06; Admin Dose 0.25 MG; Start 02/15/19 at 11:00 Methylprednisolone Sodium Succinate (Solu-Medrol) 40 mg DAILY IV Last administered on 02/22/19 08:49; Admin Dose 40 MG; Start 02/21/19 at 09:00 Insulin Glargine (Lantus) 12 units DAILY@2000 SC Last administered on 5/31/19at 20:42; Admin Dose 12 UNITS; Start 02/20/19 at 20:00 Furosemide (Lasix) 40 mg DAILY IV Last administered on 02/22/19at 08:51; Admin Dose 40 MG; Start 02/22/19 at 09:00 Lansoprazole (Prevacid) 30 mg BID@0600,1800 NGT Last administered on 02/22/19at 06:17; Admin Dose 30 MG; Start 02/21/19 at 18:00 IV Flush (NS 10 ml) 10 ml PRN PRN IV IV PROTOCOL; Start 02/21/19 at 21:00 Dextrose/Sodium Chloride 1,000 ml @ 60 mls/hr [id number] IV Last administered on 02/22/19at 01:26; Admin Dose 60 MLS/HR; Start 02/22/19 at 01:30 Assessment/Plan Assessment/Plan (Daily) IMP: 1. s/p Acute hypoxemic respiratory failure likely secondary to combination of volume overload and pneumonia, now requiring bilevel ventilation 2. Encephalopathy underlying dementia versus toxic metabolic, appears to be slowly improving possibly secondary to elevated sodium. 3. Valvular heart disease 4. Severe dysphagia 5. Status post septic shock likely secondary to above, persistent leukocytosis. 6. Anemia, no active GI bleeding 7. Skin diffuse excoriating skin lesion unclear etiology not consistent with history of "red man" syndrome. or pemphigus. Likely drug reaction. 8. Anemia 9. Status post septic shock RECS: 1. Continue bilevel ventilation 2. Continue broad-spectrum antibiotics 3. Infectious work-up as per ID 4. Monitor H&H 5. Diuresis as tolerated 6. Aspiration precautions TINO PAL MD Feb 22, 2019 16:40
--- NOTE | 2019-02-22 17:00 | CONS ---
Assessment/Plan Assessment/Plan Assessment/Plan (Daily) 88 yo male with multiple medical problems including DM, CRF, RA, PVD and chronic afib on Eliquis who presented to [facility] 01/05/19 with severe normocytic anemia and Hg ~7. 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 # Anemia-normocytic -Hg stable 7.3 no evidence of GIB -Multifactorial at this time due to iron deficiency, vitamin b12 deficiency and also likely anemia of chronic kidney disease and inflammation. Elevated Methylmalonic acid level noted -s/p IV iron. will recheck iron panel at this time -continue vitamin b12 weekly as vitamin b12 was low normal and methylmalonic acid was elevated. Continue folate as well. -No evidence of hemolysis at this time. -Transfuse to keep Hgb > 7. 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 -This may be a pseudocyst or a precancerous pancreatic lesion. -It has been growing in size but patient is asymptomatic. EUS with biopsy is recommended and can either be done inpatient or outpatient setting. -The patient at this time is unlikely a candidate for a whipple surgery however. #poor po intake -waiting for G tube placement # MICHELLE- Cr 1. 72 - neo follows Patient seen in collaboration with Dr King Consultation Date/Type/Reason Admit Date/Time Jan 17, 2019 at 15:58 Initial Consult Date 01/18/19 Type of Consult oncology Reason for Consultation Anemia Pancreatic cyst Requesting Provider: IVAN AKHTAR MD Date/Time of Note DATE: 02/22/19 TIME: 16:59 24 HR Interval Summary Free Text/Dictation Seems comfortable on BIPAP Daughter at bed side- all Qs answered no events reported last night dw staff Subjective hx not possible: pt non-verbal Constitutional: requiring O2 Exam/Review of Systems Exam Vitals Vital Signs Date Temp Pulse Resp B/P (MAP) Pulse Ox O2 O2 Flow FiO2 Time Delivery Rate 02/22/19 70 16:01 02/22/19 97.1 21 123/57 100 BIPAP 15:40 (79) 02/22/19 50 13:05 Intake and Output 02/21/19 02/21/19 02/22/19 1515:00 23:00 07:00 IntakeIntake Total 600 ml 50 ml OutputOutput Total 1000 ml 800 ml BalanceBalance -400 ml -750 ml Constitutional: non-verbal, frail Psych: nl mood/affect ENMT: nl external ears & nose Neck: non-tender Respiratory: diminished breath sounds Cardiovascular: nl pulses, other (s1s2) Gastrointestinal: soft Musculoskeletal: muscle weakness Extremities: normal pulses Neurological: unresponsive Skin: other (resolving skin desquaation) Results Result Diagram: 02/22/19 0705 02/22/19 0705 Results 24hrs Laboratory Tests Test 02/21/19 17:44 02/21/19 20:30 02/22/19 00:23 02/22/19 05:38 Bedside Glucose 134 129 87 101 Test 02/22/19 07:05 02/22/19 08:28 02/22/19 13:36 White Blood Count 9.2 Red Blood Count 2.59 L Hemoglobin 7.3 L Hematocrit 24.9 L Mean Corpuscular 96.1 Volume Mean Corpuscular 28.2 L Hemoglobin Mean Corpuscular 29.3 L Hemoglobin Concent Red Cell Distribution 19.7 H Width Platelet Count 133 L Mean Platelet Volume 12.5 H Immature Granulocytes 0.500 H % Neutrophils % 80.9 H Lymphocytes % 12.9 L Monocytes % 5.6 Eosinophils % 0.0 Basophils % 0.1 Nucleated Red Blood 0.7 H Cells % Immature Granulocytes 0.050 H # Neutrophils # 7.4 Lymphocytes # 1.2 Monocytes # 0.5 Eosinophils # 0.0 Basophils # 0.0 Nucleated Red Blood 0.1 H Cells # Sodium Level 147 H Potassium Level 3.9 Chloride Level 113 H Carbon Dioxide Level 32 H Anion Gap 2 L Blood Urea Nitrogen 112 H Creatinine 1.84 H Est Glomerular Filtrat Rate mL/min Glucose Level 88 # Calcium Level 8.0 L Bedside Glucose 111 121 Medications Medication Current Medications Acetaminophen (Tylenol Tab) 650 mg Q4H PRN PO PAIN Last administered on 02/11/19at 21:29; Admin Dose 650 MG; Start 01/17/19 at 18:17 [facility]isc[facility] This patient ramirez... PRN PRN XX WOUND CARE; Start 01/17/19 at 18:17 Albuterol/ Ipratropium (Duoneb) 3 ml Q2H RESP THERAPY PRN HHN SHORTNESS OF BREATH Last administered on 02/13/19at 05:52; Admin Dose 3 ML; Start 01/17/19 at 18:17 Bisacodyl (Dulcolax) 10 mg BID PRN PO CONSTIPATION; Start 01/17/19 at 18:17; Status Hold Folic Acid (Folic Acid) 1 mg DAILY PO Last administered on 02/22/19at 08:50; Admin Dose 1 MG; Start 01/17/19 at 18:17 Latanoprost (Xalatan) 1 drop HS BOTH EYES Last administered on 02/21/19at 21:00; Admin Dose 1 DROP; Start 01/17/19 at 18:17 Nitroglycerin (Nitroglycerin (Sl Tab) 0.4 Mg) 0.4 tab Q5M PRN SL CHEST PAIN; Start 01/17/19 at 18:17 IV Flush (NS 3 ml) 3 ml PER PROTOCOL IV ; Start 01/17/19 at 18:17 Glucose (Glutose) 15 gm Q15M PRN PO DECREASED GLUCOSE; Start 01/17/19 at 18:17 Glucose (Glutose) 22.5 gm Q15M PRN PO DECREASED GLUCOSE; Start 01/17/19 at 18:17 Dextrose (D50w Syringe) 25 ml Q15M PRN IV DECREASED GLUCOSE Last administered on 02/14/19at 17:23; Admin Dose 25 ML; Start 01/17/19 at 18:17 Dextrose (D50w Syringe) 50 ml Q15M PRN IV DECREASED GLUCOSE; Start 01/17/19 at 18:17 Glucagon (Glucagen) 1 mg Q15M PRN IM DECREASED GLUCOSE Last administered on 02/11/19at 17:55; Admin Dose 1 MG; Start 01/17/19 at 18:17 Glucose (Glutose) 15 gm Q15M PRN BUCCAL DECREASED GLUCOSE; Start 01/17/19 at 18:17 Bisacodyl (Dulcolax Supp) 10 mg DAILY PRN [place] CONSTIPATION; Start 01/17/19 at 18:17 Zinc Acetate/ Diphenhydramine (Benadryl 2% Cr) 1 applic Q6H PRN TOP ITCHING Last administered on 02/21/19 20:38; Admin Dose 1 APPLIC; Start 01/19/19 at 16:37 IV Flush (NS 10 ml) 10 ml PRN PRN IV IV PROTOCOL; Start 01/20/19 at 14:30 Cyanocobalamin (Vitamin B12 Inj) 1,000 mcg Q7D IM Last administered on 02/17/19 08:30; Admin Dose 1,000 MCG; Start 02/03/19 at 09:00 Metoprolol Tartrate (Lopressor) 5 mg Q4H PRN IV HR>110 Hold SBP<100; Start 01/26/19 at 14:30 Enoxaparin Sodium (Lovenox) 60 mg DAILY SC Last administered on 02/03/19 0 8:06; Admin Dose 60 MG; Start 01/28/19 at 09:00; Status Hold Docusate Sodium (Colace Liquid Cup) 100 mg BID NGT ; Start 01/27/19 at 22:00; Status Hold Terazosin HCl (Hytrin) 10 mg HS NGT Last administered on 02/21/19 20:36; Admin Dose 10 MG; Start 01/28/19 at 21:00 Levothyroxine Sodium (Synthroid) 125 mcg BEFORE BREAKFAST NGT Last administered on 02/22/19 06:16; Admin Dose 125 MCG; Start 01/28/19 at 07:00 Ferrous Sulfate (Feosol Liquid Cup) 300 mg WITH MEALS GTB Last administered on 02/22/19 13:13; Admin Dose 300 MG; Start 01/28/19 at 11:30 Multivitamins (Multivitamin) 30 ml DAILY GTB Last administered on 02/22/19 08:49; Admin Dose 30 ML; Start 01/28/19 at 11:00 Nystatin/ Triamcinolone Acetonide (Mycolog Oint) 1 applic BID TOP Last administered on 02/22/19 08:52; Admin Dose 1 APPLIC; Start 01/28/19 at 22:30 Insulin Aspart (Novolog Insulin Pen) NOVOLOG *MILD* ALGORI... Q4 SC Last admi nistered on 02/21/19 13:34; Admin Dose 2 UNIT; Start 01/29/19 at 05:00 Albuterol/ Ipratropium (Duoneb) 3 ml Q6HWA RESP THERAPY HHN Last administered on 02/22/19 13:02; Admin Dose 3 ML; Start 01/29/19 at 14:00 Epoetin Dae-epbx (RETACRIT(non-esrd)) 40,000 unit Mo@1700 SC Last administered on 02/17/19 17:18; Admin Dose 40,000 UNIT; Start 02/03/19 at 17:00 Eye Lubricant (Refresh Plus) 1 drop QID BOTH EYES Last administered on 02/22/19 13:35; Admin Dose 1 DROP; Start 02/06/19 at 09:00 Eye Lubricant (Akwa Oint) 1 applic HS LEFT EYE Last administered on 02/21/19 20:39; Admin Dose 1 APPLIC; Start 02/06/19 at 21:00 Multi-Ingredient Ointment (Aquaphor Oint 52.5 Gm) 1 applic BID TOP Last admini stered on 02/22/19 08:52; Admin Dose 1 APPLIC; Start 02/06/19 at 22:40 Morphine Sulfate (morphine) 0.25 mg Q4H PRN IV SEVERE PAIN LEVEL 7-10 Last administered on 02/21/19 06:06; Admin Dose 0.25 MG; Start 02/15/19 at 11:00 Methylprednisolone Sodium Succinate (Solu-Medrol) 40 mg DAILY IV Last admin istered on 02/22/19 08:49; Admin Dose 40 MG; Start 02/21/19 at 09:00 Insulin Glargine (Lantus) 12 units DAILY@2000 SC Last administered on 02/21/19 20:42; Admin Dose 12 UNITS; Start 02/20/19 at 20:00 Furosemide (Lasix) 40 mg DAILY IV Last administered on 02/22/19 08:51; Admin Dose 40 MG; Start 02/22/19 at 09:00 Lansoprazole (Prevacid) 30 mg BID@0600,1800 NGT Last administered on 02/22/19 06:17; Admin Dose 30 MG; Start 02/21/19 at 18:00 IV Flush (NS 10 ml) 10 ml PRN PRN IV IV PROTOCOL; Start 02/21/19 at 21:00 Dextrose/Sodium Chloride 1,000 ml @ 60 mls/hr [id number] IV Last administered on 02/22/19 01:26; Admin Dose 60 MLS/HR; Start 02/22/19 at 01:30 JESI GATES Feb 22, 2019 17:00
[2019-02-22] MEDS: LATANOPROST 0.005% 2.5 ML OPH BOTH EYES SCH (21:00)
[2019-02-22] MEDS: OCULAR LUBRICANT 3.5 GM OPH OINT LEFT EYE SCH (22:40)
[2019-02-22] MEDS: TERAZOSIN 5 MG CAP NGT SCH (22:41)
[2019-02-22] MEDS: INSULIN GLARGINE [LANTus] (100 UNITS/ML) SYG SC SCH (22:48)
[2019-02-23] VITALS (34 sets, daily range): BP systolic 82–166; BP diastolic 47–81; PULSE 59–93; RESP 18–24
[2019-02-23] MEDS: INSULIN ASPART [NOVOLOG] 3 ML PEN SC SCH ×6 (01:00→21:00)
[2019-02-23] MEDS: LEVOTHYROXINE 125 MCG TAB NGT SCH (06:35)
[2019-02-23] MEDS: LANSOPRAZOLE 30 MG CAP NGT SCH ×2 (06:35→17:47)
[2019-02-23] MEDS: ALBUTEROL/IPRATROPIUM (NEB) 3 ML AMP HHN SCH ×3 (07:59→20:01)
[2019-02-23] MEDS: FERROUS SULFATE 60 MG/ML 5ML CUP GTB SCH ×3 (08:42→17:47)
[2019-02-23] MEDS: MULTIVITAMINS 30 ML CUP GTB SCH (08:42)
[2019-02-23] MEDS: CARBOXYMETHYLCELLULOSE 0.5% 0.4 ML OPH BOTH EYES SCH ×4 (08:42→22:46)
[2019-02-23] MEDS: FOLIC ACID 1 MG TAB PO SCH (08:43)
[2019-02-23] MEDS: FUROSEMIDE 40 MG INJ IV SCH (08:43)
[2019-02-23] MEDS: METHYLPREDNISOLONE 40 MG INJ IV SCH (08:43)
[2019-02-23] MEDS ORDERED: ALBUMIN HUMAN 25% 100 ML IV ONE (10:30)
[2019-02-23] MEDS ORDERED: HEPARIN 1000 UNITS/ML 10 ML INJ CATHETER ONE (10:30)
--- NOTE | 2019-02-23 10:32 | PN ---
Date/Time of Note Date/Time of Note DATE: 02/23/19 TIME: 10:23 Assessment/Plan VTE Prophylaxis Risk score (from Ns)>0 risk: 6 SCD applied (from Ns): Yes Pharmacological prophylaxis: NA/contraindicated Pharm contraindication: anticoag not tolerated Lines/Catheters IV Catheter Type (from [facility]): PICC Line Central line still needed: Yes Urinary Cath still in place: Yes Reason Cath still needed: urinary retention Assessment/Plan Hospital Course 1. Sepsis, Lactic acid is elevated. 2. Severe anemia 3. Chronic renal failure likely secondary to sepsis, 4. Hypertension. 5. Hyperlipidemia. 6. Hypothyroidism. 7. Normocytic normochromic chronic anemia with recent hemoglobin drop. 8. Bilateral groin cellulitis more likely associated with mateus, patches in groin and axilla bilaterally. skin peeling 9. History of rheumatoid arthritis with joint deformities. 10. Diabetes type 2. 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 Peripheral vascular disease. 13. Chronic a.fib 14. right arm edema, Us negative 15. Neoplasm per CT abdomen. 4.3 cm cystic lesion along the pancreas body, enlarged since 10/10/2012 (previously 2.4 cm). 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 16. Possible allergic skin reaction, biopsy is obtained 17. altered mental status delirium vs stroke, better 18. Hypernatremia 148 19. Eye muscle paralysis, resolved. 20. s/p ultrasound-guided thoracentesis. Assessment/Plan -On BIPAP 40% -UF today and tomorrow -dr Dixon for the line insertion -Gil eval. pending -Free water flushes via GT, restart tube feeding -HD cath on bedside -Dr Alatorre talk to daughter to start HD - nebs, -c/w tube feeding -PICC line - GI consult> hold lovenox due to possible bleeding, iv ppi> G-tube on hold currently improved pending improvement in respiratory status - GI and DVT prophylaxis -skin care - s/p skin biopsy: solar elastosis according to them is probably due to antibiotics -Limitations to discharge labile respiratory status with pneumonia CHF renal failure and altered mental status -he is DNR/DNI Result Diagram: 02/23/1962302/23/1924 Results 24hrs Laboratory Tests Test 02/22/19 13:36 02/22/19 17:38 02/22/19 22:36 02/23/19 01:59 Bedside Glucose 121 122 150 150 Test 02/23/19 06:21 02/23/19 06:24 02/23/19 07:48 Bedside Glucose 139 139 White Blood Count 8.6 Red Blood Count 2.85 L Hemoglobin 8.2 L Hematocrit 27.6 L Mean Corpuscular Volume 96.8 Mean Corpuscular 28.8 L Hemoglobin Mean Corpuscular 29.7 L Hemoglobin Concent Red Cell Distribution 20.0 H Width Platelet Count 144 Mean Platelet Volume 12.8 H Immature Granulocytes % 0.500 H Neutrophils % 83.1 H Lymphocytes % 11.1 L Monocytes % 5.2 Eosinophils % 0.0 Basophils % 0.1 Nucleated Red Blood 0.8 H Cells % Immature Granulocytes # 0.040 H Neutrophils # 7.2 Lymphocytes # 1.0 Monocytes # 0.5 Eosinophils # 0.0 Basophils # 0.0 Nucleated Red Blood 0.1 H Cells # Sodium Level 148 H Potassium Level 3.7 Chloride Level 112 H Carbon Dioxide Level 31 Anion Gap 5 Blood Urea Nitrogen 104 H Creatinine 1.72 H Est Glomerular Filtrat Rate mL/min Glucose Level 132 # Calcium Level 8.1 L Subjective 24 Hr Interval Summary Free Text/Dictation on BIPAP Subjective hx not possible: pt non-verbal Exam/Review of Systems Exam Vitals Vital Signs Date Temp Pulse Resp B/P (MAP) Pulse Ox O2 O2 Flow FiO2 Time Delivery Rate 02/23/19 72 08:01 02/23/19 100 45 07:58 02/23/19 98.6 20 166/81 07:43 (109) 02/22/19 BIPAP 15:40 Intake and Output 02/22/19 02/22/19 02/23/19 1515:00 23:00 07:00 IntakeIntake Total 820 ml OutputOutput Total 1600 ml 700 ml BalanceBalance -780 ml -700 ml Constitutional: alert Head: normocephalic Eyes: nl conjunctiva Neck: supple Respiratory: crackles/rales, diminished breath sounds Cardiovascular: regular rate and rhythm Gastrointestinal: soft Genitourinary - Male: other (rinaldi) Results Results 24hrs Laboratory Tests Test 02/22/19 13:36 02/22/19 17:38 02/22/19 22:36 02/23/19 01:59 Bedside Glucose 121 122 150 150 Test 02/23/19 06:21 02/23/19 06:24 02/23/19 07:48 Bedside Glucose 139 139 White Blood Count 8.6 Red Blood Count 2.85 L Hemoglobin 8.2 L Hematocrit 27.6 L Mean Corpuscular Volume 96.8 Mean Corpuscular 28.8 L Hemoglobin Mean Corpuscular 29.7 L Hemoglobin Concent Red Cell Distribution 20.0 H Width Platelet Count 144 Mean Platelet Volume 12.8 H Immature Granulocytes % 0.500 H Neutrophils % 83.1 H Lymphocytes % 11.1 L Monocytes % 5.2 Eosinophils % 0.0 Basophils % 0.1 Nucleated Red Blood 0.8 H Cells % Immature Granulocytes # 0.040 H Neutrophils # 7.2 Lymphocytes # 1.0 Monocytes # 0.5 Eosinophils # 0.0 Basophils # 0.0 Nucleated Red Blood 0.1 H Cells # Sodium Level 148 H Potassium Level 3.7 Chloride Level 112 H Carbon Dioxide Level 31 Anion Gap 5 Blood Urea Nitrogen 104 H Creatinine 1.72 H Est Glomerular Filtrat Rate mL/min Glucose Level 132 # Calcium Level 8.1 L Medications Medication Current Medications Acetaminophen (Tylenol Tab) 650 mg Q4H PRN PO PAIN Last administered on 02/11/19at 21:29; Admin Dose 650 MG; Start 01/17/19 at 18:17 Miscellaneous Information [facility] This patient ramirez... PRN PRN XX WOUND CARE; Start 01/17/19 at 18:17 Albuterol/ Ipratropium (Duoneb) 3 ml Q2H RESP THERAPY PRN HHN SHORTNESS OF BREATH Last administered on 02/13/19at 05:52; Admin Dose 3 ML; Start 01/17/19 at 18:17 Bisacodyl (Dulcolax) 10 mg BID PRN PO CONSTIPATION; Start 01/17/19 at 18:17; Status Hold Folic Acid (Folic Acid) 1 mg DAILY PO Last administered on 02/23/19at 08:43; Admin Dose 1 MG; Start 01/17/19 at 18:17 Latanoprost (Xalatan) 1 drop HS BOTH EYES Last administered on 02/22/19at 21:00; Admin Dose 1 DROP; Start 01/17/19 at 18:17 Nitroglycerin (Nitroglycerin (Sl Tab) 0.4 Mg) 0.4 tab Q5M PRN SL CHEST PAIN; Start 01/17/19 at 18:17 IV Flush (NS 3 ml) 3 ml PER PROTOCOL IV ; Start 01/17/19 at 18:17 Glucose (Glutose) 15 gm Q15M PRN PO DECREASED GLUCOSE; Start 01/17/19 at 18:17 Glucose (Glutose) 22.5 gm Q15M PRN PO DECREASED GLUCOSE; Start 01/17/19 at 18:17 Dextrose (D50w Syringe) 25 ml Q15M PRN IV DECREASED GLUCOSE Last administered on 02/14/19at 17:23; Admin Dose 25 ML; Start 01/17/19 at 18:17 Dextrose (D50w Syringe) 50 ml Q15M PRN IV DECREASED GLUCOSE; Start 01/17/19 at 18:17 Glucagon (Glucagen) 1 mg Q15M PRN IM DECREASED GLUCOSE Last administered on 02/11/19at 17:55; Admin Dose 1 MG; Start 01/17/19 at 18:17 Glucose (Glutose) 15 gm Q15M PRN BUCCAL DECREASED GLUCOSE; Start 01/17/19 at 18:17 Bisacodyl (Dulcolax Supp) 10 mg DAILY PRN IN CONSTIPATION; Start 01/17/19 at 18:17 Zinc Acetate/ Diphenhydramine (Benadryl 2% Cr) 1 applic Q6H PRN TOP ITCHING Last administered on 02/21/19at 20:38; Admin Dose 1 APPLIC; Start 01/19/19 at 16:37 IV Flush (NS 10 ml) 10 ml PRN PRN IV IV PROTOCOL; Start 01/20/19 at 14:30 Cyanocobalamin (Vitamin B12 Inj) 1,000 mcg Q7D IM Last administered on 02/17/19at 08:30; Admin Dose 1,000 MCG; Start 02/03/19 at 09:00 Metoprolol Tartrate (Lopressor) 5 mg Q4H PRN IV HR>110 Hold SBP<100; Start 01/26/19 at 14:30 Enoxaparin Sodium (Lovenox) 60 mg DAILY SC Last administered on 02/03/19at 08:06; Admin Dose 60 MG; Start 01/28/19 at 09:00; Status Hold Docusate Sodium (Colace Liquid Cup) 100 mg BID NGT ; Start 01/27/19 at 22:00; Status Hold Terazosin HCl (Hytrin) 10 mg HS NGT Last administered on 02/22/19 22:41; Admin Dose 10 MG; Start 01/28/19 at 21:00 Levothyroxine Sodium (Synthroid) 125 mcg BEFORE BREAKFAST NGT Last administered on 02/23/19 06:35; Admin Dose 125 MCG; Start 01/28/19 at 07:00 Ferrous Sulfate (Feosol Liquid Cup) 300 mg WITH MEALS GTB Last administered on 02/23/19 08:42; Admin Dose 300 MG; Start 01/28/19 at 11:30 Multivitamins (Multivitamin) 30 ml DAILY GTB Last administered on 02/23/19 08:42; Admin Dose 30 ML; Start 01/28/19 at 11:00 Nystatin/ Triamcinolone Acetonide (Mycolog Oint) 1 applic BID TOP Last administered on 02/22/19 21:00; Admin Dose 1 APPLIC; Start 01/28/19 at 22:30 Insulin Aspart (Novolog Insulin Pen) NOVOLOG *MILD* ALGORI... Q4 SC Last administered on 02/22/19 22:46; Admin Dose 1 UNIT; Start 01/29/19 at 05:00 Albuterol/ Ipratropium (Duoneb) 3 ml Q6HWA RESP THERAPY HHN Last administered on 02/23/19 07:59; Admin Dose 3 ML; Start 01/29/19 at 14:00 Epoetin Dae-epbx (RETACRIT(non-esrd)) 40,000 unit Mo@1700 SC Last administered on 02/17/19 17:18; Admin Dose 40,000 UNIT; Start 02/03/19 at 17:00 Eye Lubricant (Refresh Plus) 1 drop QID BOTH EYES Last administered on 02/23/19 08:42; Admin Dose 1 DROP; Start 02/06/19 at 09:00 Eye Lubricant (Akwa Oint) 1 applic HS LEFT EYE Last administered on 02/22/19 22:40; Admin Dose 1 APPLIC; Start 02/06/19 at 21:00 Multi-Ingredient Ointment (Aquaphor Oint 52.5 Gm) 1 applic BID TOP Last administered on 02/22/19 21:00; Admin Dose 1 APPLIC; Start 02/06/19 at 22:40 Morphine Sulfate (morphine) 0.25 mg Q4H PRN IV SEVERE PAIN LEVEL 7-10 Last administered on 02/21/19 06:06; Admin Dose 0.25 MG; Start 02/15/19 at 11:00 Methylprednisolone Sodium Succinate (Solu-Medrol) 40 mg DAILY IV Last administered on 02/23/19 08:43; Admin Dose 40 MG; Start 02/21/19 at 09:00 Insulin Glargine (Lantus) 12 units DAILY@2000 SC Last administered on 02/22/19 22:48; Admin Dose 12 UNITS; Start 02/20/19 at 20:00 Furosemide (Lasix) 40 mg DAILY IV Last administered on 02/23/19 08:43; Admin Dose 40 MG; Start 02/22/19 at 09:00 Lansoprazole (Prevacid) 30 mg BID@0600,1800 NGT Last administered on 02/23/19 06:35; Admin Dose 30 MG; Start 02/21/19 at 18:00 IV Flush (NS 10 ml) 10 ml PRN PRN IV IV PROTOCOL; Start 02/21/19 at 21:00 Dextrose/Sodium Chloride 1,000 ml @ 60 mls/hr [id number] IV Last administered on 02/22/19 17:41; Admin Dose 60 MLS/HR; Start 02/22/19 at 01:30 COOPER CARO Feb 23, 2019 10:32
[2019-02-23] MEDS: AQUAPHOR 52.5 GM OINT TOP SCH ×2 (10:34→22:48)
[2019-02-23] MEDS: NYSTATIN/TRIAMCINOLONE 15 GM OINT TOP SCH ×2 (10:34→22:49)
[2019-02-23] MEDS: BALSAM PERU/CASTOR OIL 60 GM TUBE TOP SCH ×2 (10:35→22:48)
--- NOTE | 2019-02-23 10:55 | CONS ---
Assessment/Plan Assessment/Plan Assessment/Plan (Daily) 88 yo male with multiple medical problems including DM, CRF, RA, PVD and chronic afib on Eliquis who presented to [facility] 01/05/19 with severe normocytic anemia and Hg ~7. 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 # Anemia-normocytic.-Hg stable 8.2 today .- no evidence of GIB -Multifactorial at this time due to iron deficiency, vitamin b12 deficiency and also likely anemia of chronic kidney disease and inflammation. Elevated Methylmalonic acid level noted -s/p IV iron. will recheck iron panel at this time -continue vitamin b12 weekly as vitamin b12 was low normal and methylmalonic acid was elevated. Continue folate as well. -No evidence of hemolysis at this time. -Transfuse to keep Hgb > 7. 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 -This may be a pseudocyst or a precancerous pancreatic lesion. -It has been growing in size but patient is asymptomatic. EUS with biopsy is recommended and can either be done inpatient or outpatient setting. -The patient at this time is unlikely a candidate for a whipple surgery however. Patient seen n collaboration with Dr King Consultation Date/Type/Reason Admit Date/Time Jan 17, 2019 at 15:58 Initial Consult Date 01/18/19 Type of Consult oncology Requesting Provider: IVAN AKHTAR MD Date/Time of Note DATE: 02/23/19 TIME: 10:55 24 HR Interval Summary Free Text/Dictation Seems comfortable on BIPAP Daughter at bed side- all Qs answered no events reported last night dw staff Exam/Review of Systems Exam Vitals Vital Signs Date Temp Pulse Resp B/P (MAP) Pulse Ox O2 O2 Flow FiO2 Time Delivery Rate 02/23/19 72 08:01 02/23/19 100 45 07:58 02/23/19 98.6 20 166/81 07:43 (109) 02/22/19 BIPAP 15:40 Intake and Output 02/22/19 02/22/19 02/23/19 1515:00 23:00 07:00 IntakeIntake Total 820 ml OutputOutput Total 1600 ml 700 ml BalanceBalance -780 ml -700 ml Constitutional: non-verbal, frail Psych: nl mood/affect ENMT: nl external ears & nose Neck: non-tender Respiratory: diminished breath sounds, other Cardiovascular: nl pulses, other (s1s2) Gastrointestinal: soft Musculoskeletal: muscle weakness Neurological: unresponsive Results Result Diagram: 02/23/19 0624 02/23/19 0624 Results 24hrs Laboratory Tests Test 02/22/19 13:36 02/22/19 17:38 02/22/19 22:36 02/23/19 01:59 Bedside Glucose 121 122 150 150 Test 02/23/19 06:21 02/23/19 06:24 02/23/19 07:48 Bedside Glucose 139 139 White Blood Count 8.6 Red Blood Count 2.85 L Hemoglobin 8.2 L Hematocrit 27.6 L Mean Corpuscular Volume 96.8 Mean Corpuscular 28.8 L Hemoglobin Mean Corpuscular 29.7 L Hemoglobin Concent Red Cell Distribution 20.0 H Width Platelet Count 144 Mean Platelet Volume 12.8 H Immature Granulocytes % 0.500 H Neutrophils % 83.1 H Lymphocytes % 11.1 L Monocytes % 5.2 Eosinophils % 0.0 Basophils % 0.1 Nucleated Red Blood 0.8 H Cells % Immature Granulocytes # 0.040 H Neutrophils # 7.2 Lymphocytes # 1.0 Monocytes # 0.5 Eosinophils # 0.0 Basophils # 0.0 Nucleated Red Blood 0.1 H Cells # Sodium Level 148 H Potassium Level 3.7 Chloride Level 112 H Carbon Dioxide Level 31 Anion Gap 5 Blood Urea Nitrogen 104 H Creatinine 1.72 H Est Glomerular Filtrat Rate mL/min Glucose Level 132 # Calcium Level 8.1 L Medications Medication Current Medications Acetaminophen (Tylenol Tab) 650 mg Q4H PRN PO PAIN Last administered on 02/11/19at 21:29; Admin Dose 650 MG; Start 01/17/19 at 18:17 Miscellaneous Information (Pending [facility] Order For Wound Care) This patient ramirez... PRN PRN XX WOUND CARE; Start 01/17/19 at 18:17 Albuterol/ Ipratropium (Duoneb) 3 ml Q2H RESP THERAPY PRN HHN SHORTNESS OF BREATH Last administered on 02/13/19at 05:52; Admin Dose 3 ML; Start 01/17/19 at 18:17 Bisacodyl (Dulcolax) 10 mg BID PRN PO CONSTIPATION; Start 01/17/19 at 18:17; Status Hold Folic Acid (Folic Acid) 1 mg DAILY PO Last administered on 02/23/19at 08:43; Admin Dose 1 MG; Start 01/17/19 at 18:17 Latanoprost (Xalatan) 1 drop HS BOTH EYES Last administered on 02/22/19at 21:00; Admin Dose 1 DROP; Start 01/17/19 at 18:17 Nitroglycerin (Nitroglycerin (Sl Tab) 0.4 Mg) 0.4 tab Q5M PRN SL CHEST PAIN; Start 01/17/19 at 18:17 IV Flush (NS 3 ml) 3 ml PER PROTOCOL IV ; Start 01/17/19 at 18:17 Glucose (Glutose) 15 gm Q15M PRN PO DECREASED GLUCOSE; Start 01/17/19 at 18:17 Glucose (Glutose) 22.5 gm Q15M PRN PO DECREASED GLUCOSE; Start 01/17/19 at 18:17 Dextrose (D50w Syringe) 25 ml Q15M PRN IV DECREASED GLUCOSE Last administered on 02/14/19at 17:23; Admin Dose 25 ML; Start 01/17/19 at 18:17 Dextrose (D50w Syringe) 50 ml Q15M PRN IV DECREASED GLUCOSE; Start 01/17/19 at 18:17 Glucagon (Glucagen) 1 mg Q15M PRN IM DECREASED GLUCOSE Last administered on 02/11/19at 17:55; Admin Dose 1 MG; Start 01/17/19 at 18:17 Glucose (Glutose) 15 gm Q15M PRN BUCCAL DECREASED GLUCOSE; Start 01/17/19 at 18:17 Bisacodyl (Dulcolax Supp) 10 mg DAILY PRN HI CONSTIPATION; Start 01/17/19 at 18:17 Zinc Acetate/ Diphenhydramine (Benadryl 2% Cr) 1 applic Q6H PRN TOP ITCHING Last administered on 02/21/19at 20:38; Admin Dose 1 APPLIC; Start 01/19/19 at 16:37 IV Flush (NS 10 ml) 10 ml PRN PRN IV IV PROTOCOL; Start 01/20/19 at 14:30 Cyanocobalamin (Vitamin B12 Inj) 1,000 mcg Q7D IM Last administered on 08:30; Admin Dose 1,000 MCG; Start 02/03/19 at 09:00 Metoprolol Tartrate (Lopressor) 5 mg Q4H PRN IV HR>110 Hold SBP<100; Start 01/26/19 at 14:30 Enoxaparin Sodium (Lovenox) 60 mg DAILY SC Last administered on 02/03/19 08:06; Admin Dose 60 MG; Start 01/28/19 at 09:00; Status Hold Docusate Sodium (Colace Liquid Cup) 100 mg BID NGT ; Start 01/27/19 at 22:00; Status Hold Terazosin HCl (Hytrin) 10 mg HS NGT Last administered on 02/22/19 22:41; Admin Dose 10 MG; Start 01/28/19 at 21:00 Levothyroxine Sodium (Synthroid) 125 mcg BEFORE BREAKFAST NGT Last administered on 02/23/19 06:35; Admin Dose 125 MCG; Start 01/28/19 at 07:00 Ferrous Sulfate (Feosol Liquid Cup) 300 mg WITH MEALS GTB Last administered on 02/23/19 08:42; Admin Dose 300 MG; Start 01/28/19 at 11:30 Multivitamins (Multivitamin) 30 ml DAILY GTB Last administered on 02/23/19 08:42; Admin Dose 30 ML; Start 01/28/19 at 11:00 Nystatin/ Triamcinolone Acetonide (Mycolog Oint) 1 applic BID TOP Last administered on 02/23/19 10:34; Admin Dose 1 APPLIC; Start 01/28/19 at 22:30 Insulin Aspart (Novolog Insulin Pen) NOVOLOG *MILD* ALGORI... Q4 SC Last administered on 02/22/19 22:46; Admin Dose 1 UNIT; Start 01/29/19 at 05:00 Albuterol/ Ipratropium (Duoneb) 3 ml Q6HWA RESP THERAPY HHN Last administered on 02/23/19 07:59; Admin Dose 3 ML; Start 01/29/19 at 14:00 Epoetin Dae-epbx (RETACRIT(non-esrd)) 40,000 unit Mo@1700 SC Last administered on 02/17/19 17:18; Admin Dose 40,000 UNIT; Start 02/03/19 at 17:00 Eye Lubricant (Refresh Plus) 1 drop QID BOTH EYES Last administered on 02/23/19 08:42; Admin Dose 1 DROP; Start 02/06/19 at 09:00 Eye Lubricant (Akwa Oint) 1 applic HS LEFT EYE Last administered on 02/22/19 22:40; Admin Dose 1 APPLIC; Start 02/06/19 at 21:00 Multi-Ingredient Ointment (Aquaphor Oint 52.5 Gm) 1 applic BID TOP Last administered on 02/23/19 10:34; Admin Dose 1 APPLIC; Start 02/06/19 at 22:40 Morphine Sulfate (morphine) 0.25 mg Q4H PRN IV SEVERE PAIN LEVEL 7-10 Last administered on 02/21/19 06:06; Admin Dose 0.25 MG; Start 02/15/19 at 11:00 Methylprednisolone Sodium Succinate (Solu-Medrol) 40 mg DAILY IV Last administered on 02/23/19 08:43; Admin Dose 40 MG; Start 02/21/19 at 09:00 Insulin Glargine (Lantus) 12 units DAILY@2000 SC Last administered on 02/22/19 22:48; Admin Dose 12 UNITS; Start 02/20/19 at 20:00 Furosemide (Lasix) 40 mg DAILY IV Last administered on 02/23/19 08:43; Admin Dose 40 MG; Start 02/22/19 at 09:00 Lansoprazole (Prevacid) 30 mg BID@0600,1800 NGT Last administered on 02/23/19 06:35; Admin Dose 30 MG; Start 02/21/19 at 18:00 IV Flush (NS 10 ml) 10 ml PRN PRN IV IV PROTOCOL; Start 02/21/19 at 21:00 Dextrose/Sodium Chloride 1,000 ml @ 60 mls/hr [id number] IV Last administered on 02/22/19 17:41; Admin Dose 60 MLS/HR; Start 02/22/19 at 01:30 Mannitol 250 ml @ 0 mls/hr ONCE ONCE IV ; Start 02/23/19 at 11:00; Stop 02/23/19 at 11:01 Albumin Human 100 ml @ 100 mls/hr ONCE ONCE IV ; Start 02/23/19 at 10:30; Stop 02/23/19 at 11:29 JESI GATES Feb 23, 2019 10:55
[2019-02-23] MEDS ORDERED: MANNITOL 20% 250 ML IV ONE (11:00)
[2019-02-23] MEDS: DEXTROSE 5%-0.45% NACL 1,000 ML IV SCH (11:32)
--- NOTE | 2019-02-23 14:16 | CONS ---
Consult Date/Type/Reason Admit Date/Time Jan 17, 2019 at 15:58 Initial Consult Date Type of Consultation: Pulm/CCM Requesting Provider: IVAN AKHTAR MD Date/Time of Note DATE: 02/23/19 TIME: 14:14 Subjective No acute events - pt stable - about to start HD now. ROS: No fever, no chills, no nausea, no vomiting, no diarrhea/constipation - per nurse, + SOB Objective Vitals Vital Signs Date Temp Pulse Resp B/P (MAP) Pulse Ox O2 O2 Flow FiO2 Time Delivery Rate 02/23/19 72 100 40 13:10 02/23/19 97.8 18 132/63 Nasal 11:51 (86) Cannula Intake and Output 02/22/19 02/22/19 02/23/19 1515:00 23:00 07:00 IntakeIntake Total 820 ml OutputOutput Total 1600 ml 700 ml BalanceBalance -780 ml -700 ml Exam General: WN/WD/NAD, AOx 0 HEENT: Unicetric/atraumatic/EOMI (does not follow commands) NECK: JVD elevated, no thyromegaly - BiPap on Lymph: no lymphadenopathy HEART: irregular with no S3, II/ systolic murmur at apex LUNGS: Coarse sounds ABD: soft, NT, ND, +BS : Intact Neuro: non focal SKIN: chronic changes EXT: + edema edema Results/Medications Result Diagram: 02/23/1924 02/23/1924 Results 24 hrs Laboratory Tests Test 02/22/19 17:38 02/22/19 22:36 02/23/19 01:59 02/23/19 06:10 Bedside Glucose 122 150 150 Hepatitis B Surface NEGATIVE Antigen Hepatitis B Surface NEGATIVE Antibody Test 02/23/19 06:21 02/23/19 06:24 02/23/19 07:48 02/23/19 12:22 Bedside Glucose 139 139 177 White Blood Count 8.6 Red Blood Count 2.85 L Hemoglobin 8.2 L Hematocrit 27.6 L Mean Corpuscular Volume 96.8 Mean Corpuscular 28.8 L Hemoglobin Mean Corpuscular 29.7 L Hemoglobin Concent Red Cell Distribution 20.0 H Width Platelet Count 144 Mean Platelet Volume 12.8 H Immature Granulocytes % 0.500 H Neutrophils % 83.1 H Lymphocytes % 11.1 L Monocytes % 5.2 Eosinophils % 0.0 Basophils % 0.1 Nucleated Red Blood 0.8 H Cells % Immature Granulocytes # 0.040 H Neutrophils # 7.2 Lymphocytes # 1.0 Monocytes # 0.5 Eosinophils # 0.0 Basophils # 0.0 Nucleated Red Blood 0.1 H Cells # Sodium Level 148 H Potassium Level 3.7 Chloride Level 112 H Carbon Dioxide Level 31 Anion Gap 5 Blood Urea Nitrogen 104 H Creatinine 1.72 H Est Glomerular Filtrat Rate mL/min Glucose Level 132 # Calcium Level 8.1 L Home Meds Active Scripts Apixaban* (Eliquis*) 5 Mg Tablet, 2.5 MG PO BID for 30 Days, TAB Prov:IVAN AKHTAR MD 12/20/18 Metoprolol Tartrate* (Lopressor*) 50 Mg Tab, 50 MG PO BID for 30 Days, TAB Prov:COOPER CARO 12/20/18 Reported Medications Furosemide* (Lasix*) 20 Mg Tablet, 20 MG PO BID, TAB 01/05/19 Polyethylene Glycol* (Miralax*) 17 Gm Powd.pack, 17 GM PO DAILY, #30 PACKET 12/15/18 Nifedipine* (Nifedipine ER*) 60 Mg Tablet.sa, 60 MG PO DAILY, TAB.SA 12/15/18 Bisacodyl* (Bisacodyl*) 5 Mg Tablet.dr, 10 MG PO BID PRN for CONSTIPATION, TAB 12/15/18 Pregabalin* (Lyrica*) 25 Mg Capsule, 25 MG PO TID, CAP 12/15/18 Bimatoprost* (Lumigan*) 0.01%-5 Ml Opht Drops, 1 DROP BOTH EYES HS, EA 03/02/18 Cetirizine Hcl* (Cetirizine Hcl*) 10 Mg Tablet, 10 MG PO DAILY, #30 TAB 03/02/18 Insulin Glargine* (Lantus*) 100 Unit/Ml Soln, 10 UNIT SC QHS, #1 VIAL 03/02/18 Ergocalciferol (Vitamin D2) (VITAMIN D2) 2,000 Unit Tablet, 2000 UNIT PO DAILY, TAB 03/02/18 Famotidine* (Famotidine*) 20 Mg Tablet, 20 MG PO DAILY, #30 TAB 03/02/18 Ferrous Sulfate* (Ferrous Sulfate*) 325 Mg Tabec, 325 MG PO BID, TAB 03/02/18 Nitroglycerin* (Nitrostat*) 0.4 Mg Tab.subl, 0.4 MG SL Q5MIN PRN for CHEST PAIN, BOTTLE 03/02/18 Terazosin Hcl* (Terazosin Hcl*) 10 Mg Capsule, 10 MG PO HS, CAP 03/02/18 Levothyroxine Sodium* (Levoxyl*) 125 Mcg Tablet, 125 MCG PO BEFORE BREAKFAST, #30 TAB 03/02/18 Allopurinol* (Allopurinol*) 100 Mg Tablet, 100 MG PO BID, TAB 03/02/18 Atorvastatin* (Atorvastatin*) 40 Mg Tablet, 40 MG PO QHS, #30 TAB 03/02/18 Folic Acid* (Folic Acid*) 1 Mg Tablet, 1 MG PO DAILY, TAB 03/02/18 Medications Current Medications Acetaminophen (Tylenol Tab) 650 mg Q4H PRN PO PAIN Last administered on 02/11/19at 21:29; Admin Dose 650 MG; Start 01/17/19 at 18:17 Miscellaneous Information (Pending [facility] Order For Wound Care) This patient ramirez... PRN PRN XX WOUND CARE; Start 01/17/19 at 18:17 Albuterol/ Ipratropium (Duoneb) 3 ml Q2H RESP THERAPY PRN HHN SHORTNESS OF BREATH Last administered on 02/13/19at 05:52; Admin Dose 3 ML; Start 01/17/19 at 18:17 Bisacodyl (Dulcolax) 10 mg BID PRN PO CONSTIPATION; Start 01/17/19 at 18:17; Status Hold Folic Acid (Folic Acid) 1 mg DAILY PO Last administered on 02/23/19at 08:43; Admin Dose 1 MG; Start 01/17/19 at 18:17 Latanoprost (Xalatan) 1 drop HS BOTH EYES Last administered on 02/22/19at 21:00; Admin Dose 1 DROP; Start 01/17/19 at 18:17 Nitroglycerin (Nitroglycerin (Sl Tab) 0.4 Mg) 0.4 tab Q5M PRN SL CHEST PAIN; Start 01/17/19 at 18:17 IV Flush (NS 3 ml) 3 ml PER PROTOCOL IV ; Start 01/17/19 at 18:17 Glucose (Glutose) 15 gm Q15M PRN PO DECREASED GLUCOSE; Start 01/17/19 at 18:17 Glucose (Glutose) 22.5 gm Q15M PRN PO DECREASED GLUCOSE; Start 01/17/19 at 18:17 Dextrose (D50w Syringe) 25 ml Q15M PRN IV DECREASED GLUCOSE Last administered on 02/14/19at 17:23; Admin Dose 25 ML; Start 01/17/19 at 18:17 Dextrose (D50w Syringe) 50 ml Q15M PRN IV DECREASED GLUCOSE; Start 01/17/19 at 18:17 Glucagon (Glucagen) 1 mg Q15M PRN IM DECREASED GLUCOSE Last administered on 02/11/19at 17:55; Admin Dose 1 MG; Start 01/17/19 at 18:17 Glucose (Glutose) 15 gm Q15M PRN BUCCAL DECREASED GLUCOSE; Start 01/17/19 at 18:17 Bisacodyl (Dulcolax Supp) 10 mg DAILY PRN [place] CONSTIPATION; Start 01/17/19 at 18:17 Zinc Acetate/ Diphenhydramine (Benadryl 2% Cr) 1 applic Q6H PRN TOP ITCHING Last administered on 02/21/19at 20:38; Admin Dose 1 APPLIC; Start 01/19/19 at 16:37 IV Flush (NS 10 ml) 10 ml PRN PRN IV IV PROTOCOL; Start 01/20/19 at 14:30 Cyanocobalamin (Vitamin B12 Inj) 1,000 mcg Q7D IM Last administered on 02/17/19at 08:30; Admin Dose 1,000 MCG; Start 02/03/19 at 09:00 Metoprolol Tartrate (Lopressor) 5 mg Q4H PRN IV HR>110 Hold SBP<100; Start 01/26/19 at 14:30 Enoxaparin Sodium (Lovenox) 60 mg DAILY SC Last administered on 02/03/19at 08:06; Admin Dose 60 MG; Start 01/28/19 at 09:00; Status Hold Docusate Sodium (Colace Liquid Cup) 100 mg BID NGT ; Start 01/27/19 at 22:00; Status Hold Terazosin HCl (Hytrin) 10 mg HS NGT Last administered on 02/22/19at 22:41; Admin Dose 10 MG; Start 01/28/19 at 21:00 Levothyroxine Sodium (Synthroid) 125 mcg BEFORE BREAKFAST NGT Last administer ed on 02/23/19 06:35; Admin Dose 125 MCG; Start 01/28/19 at 07:00 Ferrous Sulfate (Feosol Liquid Cup) 300 mg WITH MEALS GTB Last administered on 02/23/19 12:25; Admin Dose 300 MG; Start 01/28/19 at 11:30 Multivitamins (Multivitamin) 30 ml DAILY GTB Last administered on 02/23/19 08:42; Admin Dose 30 ML; Start 01/28/19 at 11:00 Nystatin/ Triamcinolone Acetonide (Mycolog Oint) 1 applic BID TOP Last administered on 02/23/19 10:34; Admin Dose 1 APPLIC; Start 01/28/19 at 22:30 Insulin Aspart (Novolog Insulin Pen) NOVOLOG *MILD* ALGORI... Q4 SC Last administered on 02/23/19 12:30; Admin Dose 1 UNIT; Start 01/29/19 at 05:00 Albuterol/ Ipratropium (Duoneb) 3 ml Q6HWA RESP THERAPY HHN Last administered on 02/23/19 13:11; Admin Dose 3 ML; Start 01/29/19 at 14:00 Epoetin Dae-epbx (RETACRIT(non-esrd)) 40,000 unit Mo@1700 SC Last administered on 02/17/19 17:18; Admin Dose 40,000 UNIT; Start 02/03/19 at 17:00 Eye Lubricant (Refresh Plus) 1 drop QID BOTH EYES Last administered on 02/23/19 12:24; Admin Dose 1 DROP; Start 02/06/19 at 09:00 Eye Lubricant (Akwa Oint) 1 applic HS LEFT EYE Last administered on 02/22/19 22:40; Admin Dose 1 APPLIC; Start 02/06/19 at 21:00 Multi-Ingredient Ointment (Aquaphor Oint 52.5 Gm) 1 applic BID TOP Last administered on 02/23/19 10:34; Admin Dose 1 APPLIC; Start 02/06/19 at 22:40 Morphine Sulfate (morphine) 0.25 mg Q4H PRN IV SEVERE PAIN LEVEL 7-10 Last a dministered on 02/21/19 06:06; Admin Dose 0.25 MG; Start 02/15/19 at 11:00 Methylprednisolone Sodium Succinate (Solu-Medrol) 40 mg DAILY IV Last administered on 02/23/19 08:43; Admin Dose 40 MG; Start 02/21/19 at 09:00 Insulin Glargine (Lantus) 12 units DAILY@2000 SC Last administered on 02/22/19at 22:48; Admin Dose 12 UNITS; Start 02/20/19 at 20:00 Furosemide (Lasix) 40 mg DAILY IV Last administered on 02/23/19at 08:43; Admin Dose 40 MG; Start 02/22/19 at 09:00 Lansoprazole (Prevacid) 30 mg BID@0600,1800 NGT Last administered on 02/23/19 06:35; Admin Dose 30 MG; Start 02/21/19 at 18:00 IV Flush (NS 10 ml) 10 ml PRN PRN IV IV PROTOCOL; Start 02/21/19 at 21:00 Dextrose/Sodium Chloride 1,000 ml @ 60 mls/hr [id number] IV Last administered on 02/23/19at 11:32; Admin Dose 60 MLS/HR; Start 02/22/19 at 01:30 Assessment/Plan Hospital Course (Demo Recall) 1. Atrial fibrillation, currently rate controlled.-off systemic anticoagulation due to anemia. RATE CONTROLLED. BP low but stable. No new bleeding now, but H/H down. Rx as needed for symptoms. 2. CHF - chronic, DD. EF of 60%.Spot diuresis as needed. Acute on chronic, HD now. 3. Tricuspid regurgitation, moderate by most recent echo. 4. Acute on chronic renal failure - Cr up to 2.1 - avoid nephrotoxic meds. . HD. 5. Hyponatremia - going up to 147s - stable. 5. Possible pneumonia - on anti-bx now. ID follows On pressors now. Traeted. 6. History of coronary artery disease, status post coronary artery bypass graft surgery. Treated. 7. Dyslipidemia. 8. Rheumatoid arthritis - Rx per rheumatology. 9. Groin cellulitis. 10. Anemia-worsening again today requiring transfusions - trending down, will monitor. 11. Diabetes mellitus. 12. Sepsis - skin looks better. Con't supportive rX. LOU PATINO MD Feb 23, 2019 14:16
--- NOTE | 2019-02-23 14:48 | OPR ---
DATE OF OPERATION: PREOPERATIVE DIAGNOSIS: Renal failure. POSTOPERATIVE DIAGNOSIS: Renal failure. PROCEDURE: Right femoral hemodialysis catheter placement. SURGEON: Lyndsey Dixon MD ANESTHESIA: Local. CONSENT: Risks, benefits, complications, alternative therapies were explained to the patient and the family. Consent was obtained. OPERATIVE TECHNIQUE: The patient was placed in supine position, prepped and draped in usual sterile fashion. A 1% lidocaine was used throughout the operation for local anesthesia. Access was gained i n the right common femoral vein. Guidewire was advanced through without any difficulty. Subcutaneou s tissues were dilated. A 20 cm dialysis catheter was advanced over guidewire, secured to skin using silk sutures. Both ports of the catheter were aspirated and injected using saline solution. Approp riate dressings were applied. The patient tolerated procedure well. Dictated By: LYNDSEY DIXON MD FM/NTS Conf#: [id number] DID#: [id number] CC: IVAN LAMBERT MD;*End*
--- NOTE | 2019-02-23 15:21 | CONS ---
Assessment/Plan Assessment/Plan Hospital Course (Demo Recall) Patient is in hemodialysis, on BiPAP in no distress WBC 8.6 neutrophils 83.1 Antimicrobials: none Indwelling: Left subclavian triple-lumen catheter, Wade catheter, NG tube, right femoral Yogesh Allergy: Penicillin, sulfa Physical examination: Obese well-developed chronically ill-appearing - [place] man who is lethargic, in no distress. Head atraumatic normocephalic sclera nonicteric. Neck is supple chest rise symmetrical breath sounds diminished bases. Heart: S1-S2. Abdomen obese soft bowel sounds present extremities without cyanosis, bilateral edema Assessment: 1. S/p sepsis with shock 2. Acute hypoxemic respiratory failure, likely ongoing aspiration 2. Acute encephalopathy 3. S/p seizures 4. S/p Healthcare acquired pneumonia==> treated 5. Coronary artery disease/history of CABG 6. Advanced rheumatoid arthritis 5. Chronic atrial fibrillation 6. Diabetes 7. BPH 9. Acute on chronic anemia===> s/p EGD/colonoscopy 01/09/19 10. Status post right epididymitis 11. Pancreatic lesion per CT, unlikely neoplasm per oncology notes 12. 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 Skin lesions, s/p punch bx, pathology consistent with allergic reaction 14. Acute renal failure 15. DNR/DNI Plan: Remains unchanged, off antibiotics, continue present care, repeat cx's prn, hemodialysis per renal Consultation Date/Type/Reason Admit Date/Time Jan 17, 2019 at 15:58 Initial Consult Date 01/18/19 Type of Consult id Requesting Provider: IVAN AKHTAR MD Date/Time of Note DATE: 02/23/19 TIME: 15:19 Exam/Review of Systems Exam Vitals Vital Signs Date Temp Pulse Resp B/P (MAP) Pulse Ox O2 O2 Flow FiO2 Time Delivery Rate 02/23/19 72 100 40 13:10 02/23/19 97.8 18 132/63 Nasal 11:51 (86) Cannula Intake and Output 02/22/19 02/22/19 02/23/19 1515:00 23:00 07:00 IntakeIntake Total 820 ml OutputOutput Total 1600 ml 700 ml BalanceBalance -780 ml -700 ml Results Result Diagram: 02/23/1924 02/23/1924 Results 24hrs Laboratory Tests Test 02/22/19 17:38 02/22/19 22:36 02/23/19 01:59 02/23/19 06:10 Bedside Glucose 122 150 150 Hepatitis B Surface NEGATIVE Antigen Hepatitis B Surface NEGATIVE Antibody Test 02/23/19 06:21 02/23/19 06:24 02/23/19 07:48 02/23/19 12:22 Bedside Glucose 139 139 177 White Blood Count 8.6 Red Blood Count 2.85 L Hemoglobin 8.2 L Hematocrit 27.6 L Mean Corpuscular Volume 96.8 Mean Corpuscular 28.8 L Hemoglobin Mean Corpuscular 29.7 L Hemoglobin Concent Red Cell Distribution 20.0 H Width Platelet Count 144 Mean Platelet Volume 12.8 H Immature Granulocytes % 0.500 H Neutrophils % 83.1 H Lymphocytes % 11.1 L Monocytes % 5.2 Eosinophils % 0.0 Basophils % 0.1 Nucleated Red Blood 0.8 H Cells % Immature Granulocytes # 0.040 H Neutrophils # 7.2 Lymphocytes # 1.0 Monocytes # 0.5 Eosinophils # 0.0 Basophils # 0.0 Nucleated Red Blood 0.1 H Cells # Sodium Level 148 H Potassium Level 3.7 Chloride Level 112 H Carbon Dioxide Level 31 Anion Gap 5 Blood Urea Nitrogen 104 H Creatinine 1.72 H Est Glomerular Filtrat Rate mL/min Glucose Level 132 # Calcium Level 8.1 L Medications Medication Current Medications Acetaminophen (Tylenol Tab) 650 mg Q4H PRN PO PAIN Last administered on 02/11/19at 21:29; Admin Dose 650 MG; Start 01/17/19 at 18:17 Miscellaneous Information (Pending [facility] Order For Wound Care) This patient ramirez... PRN PRN XX WOUND CARE; Start 01/17/19 at 18:17 Albuterol/ Ipratropium (Duoneb) 3 ml Q2H RESP THERAPY PRN HHN SHORTNESS OF BREATH Last administered on 02/13/19at 05:52; Admin Dose 3 ML; Start 01/17/19 at 18:17 Bisacodyl (Dulcolax) 10 mg BID PRN PO CONSTIPATION; Start 01/17/19 at 18:17; Status Hold Folic Acid (Folic Acid) 1 mg DAILY PO Last administered on 02/23/19at 08:43; Admin Dose 1 MG; Start 01/17/19 at 18:17 Latanoprost (Xalatan) 1 drop HS BOTH EYES Last administered on 02/22/19at 21:00; Admin Dose 1 DROP; Start 01/17/19 at 18:17 Nitroglycerin (Nitroglycerin (Sl Tab) 0.4 Mg) 0.4 tab Q5M PRN SL CHEST PAIN; Start 01/17/19 at 18:17 IV Flush (NS 3 ml) 3 ml PER PROTOCOL IV ; Start 01/17/19 at 18:17 Glucose (Glutose) 15 gm Q15M PRN PO DECREASED GLUCOSE; Start 01/17/19 at 18:17 Glucose (Glutose) 22.5 gm Q15M PRN PO DECREASED GLUCOSE; Start 01/17/19 at 18:17 Dextrose (D50w Syringe) 25 ml Q15M PRN IV DECREASED GLUCOSE Last administered on 02/14/19at 17:23; Admin Dose 25 ML; Start 01/17/19 at 18:17 Dextrose (D50w Syringe) 50 ml Q15M PRN IV DECREASED GLUCOSE; Start 01/17/19 at 18:17 Glucagon (Glucagen) 1 mg Q15M PRN IM DECREASED GLUCOSE Last administered on 02/11/19at 17:55; Admin Dose 1 MG; Start 01/17/19 at 18:17 Glucose (Glutose) 15 gm Q15M PRN BUCCAL DECREASED GLUCOSE; Start 01/17/19 at 18:17 Bisacodyl (Dulcolax Supp) 10 mg DAILY PRN [place] CONSTIPATION; Start 01/17/19 at 18:17 Zinc Acetate/ Diphenhydramine (Benadryl 2% Cr) 1 applic Q6H PRN TOP ITCHING Last administered on 02/21/19at 20:38; Admin Dose 1 APPLIC; Start 01/19/19 at 16:37 IV Flush (NS 10 ml) 10 ml PRN PRN IV IV PROTOCOL; Start 01/20/19 at 14:30 Cyanocobalamin (Vitamin B12 Inj) 1,000 mcg Q7D IM Last administered on 02/17/19at 08:30; Admin Dose 1,000 MCG; Start 02/03/19 at 09:00 Metoprolol Tartrate (Lopressor) 5 mg Q4H PRN IV HR>110 Hold SBP<100; Start 01/26/19 at 14:30 Enoxaparin Sodium (Lovenox) 60 mg DAILY SC Last administered on 02/03/19 08:06; Admin Dose 60 MG; Start 01/28/19 at 09:00; Status Hold Docusate Sodium (Colace Liquid Cup) 100 mg BID NGT ; Start 01/27/19 at 22:00; Status Hold Terazosin HCl (Hytrin) 10 mg HS NGT Last administered on 02/22/19 22:41; Admin Dose 10 MG; Start 01/28/19 at 21:00 Levothyroxine Sodium (Synthroid) 125 mcg BEFORE BREAKFAST NGT Last administered on 02/23/19 06:35; Admin Dose 125 MCG; Start 01/28/19 at 07:00 Ferrous Sulfate (Feosol Liquid Cup) 300 mg WITH MEALS GTB Last administered on 02/23/19 12:25; Admin Dose 300 MG; Start 01/28/19 at 11:30 Multivitamins (Multivitamin) 30 ml DAILY GTB Last administered on 02/23/19 08:42; Admin Dose 30 ML; Start 01/28/19 at 11:00 Nystatin/ Triamcinolone Acetonide (Mycolog Oint) 1 applic BID TOP Last administered on 02/23/19 10:34; Admin Dose 1 APPLIC; Start 01/28/19 at 22:30 Insulin Aspart (Novolog Insulin Pen) NOVOLOG *MILD* ALGORI... Q4 SC Last administered on 02/23/19 12:30; Admin Dose 1 UNIT; Start 01/29/19 at 05:00 Albuterol/ Ipratropium (Duoneb) 3 ml Q6HWA RESP THERAPY HHN Last administered on 02/23/19 13:11; Admin Dose 3 ML; Start 01/29/19 at 14:00 Epoetin Dae-epbx (RETACRIT(non-esrd)) 40,000 unit Mo@1700 SC Last administered on 02/17/19 17:18; Admin Dose 40,000 UNIT; Start 02/03/19 at 17:00 Eye Lubricant (Refresh Plus) 1 drop QID BOTH EYES Last administered on 02/23/19 12:24; Admin Dose 1 DROP; Start 02/06/19 at 09:00 Eye Lubricant (Akwa Oint) 1 applic HS LEFT EYE Last administered on 02/22/19 22:40; Admin Dose 1 APPLIC; Start 02/06/19 at 21:00 Multi-Ingredient Ointment (Aquaphor Oint 52.5 Gm) 1 applic BID TOP Last administered on 02/23/19 10:34; Admin Dose 1 APPLIC; Start 02/06/19 at 22:40 Morphine Sulfate (morphine) 0.25 mg Q4H PRN IV SEVERE PAIN LEVEL 7-10 Last administered on 02/21/19 06:06; Admin Dose 0.25 MG; Start 02/15/19 at 11:00 Methylprednisolone Sodium Succinate (Solu-Medrol) 40 mg DAILY IV Last administered on 02/23/19 08:43; Admin Dose 40 MG; Start 02/21/19 at 09:00 Insulin Glargine (Lantus) 12 units DAILY@2000 SC Last administered on 02/22/19 22:48; Admin Dose 12 UNITS; Start 02/20/19 at 20:00 Furosemide (Lasix) 40 mg DAILY IV Last administered on 02/23/19 08:43; Admin Dose 40 MG; Start 02/22/19 at 09:00 Lansoprazole (Prevacid) 30 mg BID@0600,1800 NGT Last administered on 02/23/19 06:35; Admin Dose 30 MG; Start 02/21/19 at 18:00 IV Flush (NS 10 ml) 10 ml PRN PRN IV IV PROTOCOL; Start 02/21/19 at 21:00 Dextrose/Sodium Chloride 1,000 ml @ 60 mls/hr [id number] IV Last administered on 02/23/19 11:32; Admin Dose 60 MLS/HR; Start 02/22/19 at 01:30 LUCIAN HARKINS NP Feb 23, 2019 15:21
--- NOTE | 2019-02-23 19:00 | CONS ---
Consult Date/Type/Reason Admit Date/Time Jan 17, 2019 at 15:58 Initial Consult Date 01/18/19 Type of Consultation: Pulm/CCM Requesting Provider: IVAN AKHTAR MD Date/Time of Note DATE: 02/23/19 TIME: 18:59 Subjective Remains on BiPAP. s/p HD cath insertion. Objective Vitals Vital Signs Date Temp Pulse Resp B/P (MAP) Pulse Ox O2 O2 Flow FiO2 Time Delivery Rate 02/23/19 75 100 30 17:10 02/23/19 24 138/65 BIPAP 16:38 (89) 02/23/19 97.8 11:51 Intake and Output 02/22/19 02/22/19 02/23/19 1515:00 23:00 07:00 IntakeIntake Total 820 ml OutputOutput Total 1600 ml 700 ml BalanceBalance -780 ml -700 ml Exam NECK: Supple. No JVD or lymphadenopathy. CARDIAC EXAM: S1, S2. Early systolic ejection murmur. CHEST: Diminished air entry bilaterally ABDOMEN: Soft, nontender. No guarding or rebound. EXTREMITIES: No cyanosis, clubbing or edema. Results/Medications Result Diagram: 02/23/1962302/23/1924 Results 24 hrs Laboratory Tests Test 02/22/19 22:36 02/23/19 01:59 02/23/19 06:10 02/23/19 06:21 Bedside Glucose 150 150 139 Hepatitis B Surface NEGATIVE Antigen Hepatitis B Surface NEGATIVE Antibody Test 02/23/19 06:24 02/23/19 07:48 02/23/19 12:22 02/23/19 17:43 White Blood Count 8.6 Red Blood Count 2.85 L Hemoglobin 8.2 L Hematocrit 27.6 L Mean Corpuscular Volume 96.8 Mean Corpuscular 28.8 L Hemoglobin Mean Corpuscular 29.7 L Hemoglobin Concent Red Cell Distribution 20.0 H Width Platelet Count 144 Mean Platelet Volume 12.8 H Immature Granulocytes % 0.500 H Neutrophils % 83.1 H Lymphocytes % 11.1 L Monocytes % 5.2 Eosinophils % 0.0 Basophils % 0.1 Nucleated Red Blood 0.8 H Cells % Immature Granulocytes # 0.040 H Neutrophils # 7.2 Lymphocytes # 1.0 Monocytes # 0.5 Eosinophils # 0.0 Basophils # 0.0 Nucleated Red Blood 0.1 H Cells # Sodium Level 148 H Potassium Level 3.7 Chloride Level 112 H Carbon Dioxide Level 31 Anion Gap 5 Blood Urea Nitrogen 104 H Creatinine 1.72 H Est Glomerular Filtrat Rate mL/min Glucose Level 132 # Calcium Level 8.1 L Bedside Glucose 139 177 93 Home Meds Active Scripts Apixaban* (Eliquis*) 5 Mg Tablet, 2.5 MG PO BID for 30 Days, TAB Prov:IVAN AKHTAR MD 12/20/18 Metoprolol Tartrate* (Lopressor*) 50 Mg Tab, 50 MG PO BID for 30 Days, TAB Prov:COOPER CARO 12/20/18 Reported Medications Furosemide* (Lasix*) 20 Mg Tablet, 20 MG PO BID, TAB 01/05/19 Polyethylene Glycol* (Miralax*) 17 Gm Powd.pack, 17 GM PO DAILY, #30 PACKET 12/15/18 Nifedipine* (Nifedipine ER*) 60 Mg Tablet.sa, 60 MG PO DAILY, TAB.SA 12/15/18 Bisacodyl* (Bisacodyl*) 5 Mg Tablet.dr, 10 MG PO BID PRN for CONSTIPATION, TAB 12/15/18 Pregabalin* (Lyrica*) 25 Mg Capsule, 25 MG PO TID, CAP 12/15/18 Bimatoprost* (Lumigan*) 0.01%-5 Ml Opht Drops, 1 DROP BOTH EYES HS, EA 03/02/18 Cetirizine Hcl* (Cetirizine Hcl*) 10 Mg Tablet, 10 MG PO DAILY, #30 TAB 03/02/18 Insulin Glargine* (Lantus*) 100 Unit/Ml Soln, 10 UNIT SC QHS, #1 VIAL 03/02/18 Ergocalciferol (Vitamin D2) (VITAMIN D2) 2,000 Unit Tablet, 2000 UNIT PO DAILY, TAB 03/02/18 Famotidine* (Famotidine*) 20 Mg Tablet, 20 MG PO DAILY, #30 TAB 03/02/18 Ferrous Sulfate* (Ferrous Sulfate*) 325 Mg Tabec, 325 MG PO BID, TAB 03/02/18 Nitroglycerin* (Nitrostat*) 0.4 Mg Tab.subl, 0.4 MG SL Q5MIN PRN for CHEST PAIN, BOTTLE 03/02/18 Terazosin Hcl* (Terazosin Hcl*) 10 Mg Capsule, 10 MG PO HS, CAP 03/02/18 Levothyroxine Sodium* (Levoxyl*) 125 Mcg Tablet, 125 MCG PO BEFORE BREAKFAST, #30 TAB 03/02/18 Allopurinol* (Allopurinol*) 100 Mg Tablet, 100 MG PO BID, TAB 03/02/18 Atorvastatin* (Atorvastatin*) 40 Mg Tablet, 40 MG PO QHS, #30 TAB 03/02/18 Folic Acid* (Folic Acid*) 1 Mg Tablet, 1 MG PO DAILY, TAB 03/02/18 Medications Current Medications Acetaminophen (Tylenol Tab) 650 mg Q4H PRN PO PAIN Last administered on 02/11/19at 21:29; Admin Dose 650 MG; Start 01/17/19 at 18:17 Miscellaneous Information (Pending [facility] Order For Wound Care) This patient ramirez... PRN PRN XX WOUND CARE; Start 01/17/19 at 18:17 Albuterol/ Ipratropium (Duoneb) 3 ml Q2H RESP THERAPY PRN HHN SHORTNESS OF BREATH Last administered on 02/13/19at 05:52; Admin Dose 3 ML; Start 01/17/19 at 18:17 Bisacodyl (Dulcolax) 10 mg BID PRN PO CONSTIPATION; Start 01/17/19 at 18:17; Status Hold Folic Acid (Folic Acid) 1 mg DAILY PO Last administered on 02/23/19at 08:43; Admin Dose 1 MG; Start 01/17/19 at 18:17 Latanoprost (Xalatan) 1 drop HS BOTH EYES Last administered on 02/22/19at 21:00; Admin Dose 1 DROP; Start 01/17/19 at 18:17 Nitroglycerin (Nitroglycerin (Sl Tab) 0.4 Mg) 0.4 tab Q5M PRN SL CHEST PAIN; Start 01/17/19 at 18:17 IV Flush (NS 3 ml) 3 ml PER PROTOCOL IV ; Start 01/17/19 at 18:17 Glucose (Glutose) 15 gm Q15M PRN PO DECREASED GLUCOSE; Start 01/17/19 at 18:17 Glucose (Glutose) 22.5 gm Q15M PRN PO DECREASED GLUCOSE; Start 01/17/19 at 18: 17 Dextrose (D50w Syringe) 25 ml Q15M PRN IV DECREASED GLUCOSE Last administered on 02/14/19at 17:23; Admin Dose 25 ML; Start 01/17/19 at 18:17 Dextrose (D50w Syringe) 50 ml Q15M PRN IV DECREASED GLUCOSE; Start 01/17/19 at 18:17 Glucagon (Glucagen) 1 mg Q15M PRN IM DECREASED GLUCOSE Last administered on 02/11/19at 17:55; Admin Dose 1 MG; Start 01/17/19 at 18:17 Glucose (Glutose) 15 gm Q15M PRN BUCCAL DECREASED GLUCOSE; Start 01/17/19 at 18:17 Bisacodyl (Dulcolax Supp) [address] CONSTIPATION; Start 01/17/19 at 18:17 Zinc Acetate/ Diphenhydramine (Benadryl 2% Cr) 1 applic Q6H PRN TOP ITCHING Last administered on 02/21/19at 20:38; Admin Dose 1 APPLIC; Start 01/19/19 at 16:37 IV Flush (NS 10 ml) 10 ml PRN PRN IV IV PROTOCOL; Start 01/20/19 at 14:30 Cyanocobalamin (Vitamin B12 Inj) 1,000 mcg Q7D IM Last administered on 02/17/19at 08:30; Admin Dose 1,000 MCG; Start 02/03/19 at 09:00 Metoprolol Tartrate (Lopressor) 5 mg Q4H PRN IV HR>110 Hold SBP<100; Start 01/26/19 at 14:30 Enoxaparin Sodium (Lovenox) 60 mg DAILY SC Last administered on 02/03/19at 08:06; Admin Dose 60 MG; Start 01/28/19 at 09:00; Status Hold Docusate Sodium (Colace Liquid Cup) 100 mg BID NGT ; Start 01/27/19 at 22:00; Status Hold Terazosin HCl (Hytrin) 10 mg HS NGT Last administered on 02/22/19at 22:41; Admin Dose 10 MG; Start 01/28/19 at 21:00 Levothyroxine Sodium (Synthroid) 125 mcg BEFORE BREAKFAST NGT Last administered on 02/23/19at 06:35; Admin Dose 125 MCG; Start 01/28/19 at 07:00 Ferrous Sulfate (Feosol Liquid Cup) 300 mg WITH MEALS GTB Last administered on 02/23/19 17:47; Admin Dose 300 MG; Start 01/28/19 at 11:30 Multivitamins (Multivitamin) 30 ml DAILY GTB Last administered on 02/23/19 08: 42; Admin Dose 30 ML; Start 01/28/19 at 11:00 Nystatin/ Triamcinolone Acetonide (Mycolog Oint) 1 applic BID TOP Last administered on 02/23/19 10:34; Admin Dose 1 APPLIC; Start 01/28/19 at 22:30 Insulin Aspart (Novolog Insulin Pen) NOVOLOG *MILD* ALGORI... Q4 SC Last administered on 02/23/19 12:30; Admin Dose 1 UNIT; Start 01/29/19 at 05:00 Albuterol/ Ipratropium (Duoneb) 3 ml Q6HWA RESP THERAPY HHN Last administered on 02/23/19 13:11; Admin Dose 3 ML; Start 01/29/19 at 14:00 Epoetin Dae-epbx (RETACRIT(non-esrd)) 40,000 unit Mo@1700 SC Last administered on 02/17/19 17:18; Admin Dose 40,000 UNIT; Start 02/03/19 at 17:00 Eye Lubricant (Refresh Plus) 1 drop QID BOTH EYES Last administered on 02/23/19 17:47; Admin Dose 1 DROP; Start 02/06/19 at 09:00 Eye Lubricant (Akwa Oint) 1 applic HS LEFT EYE Last administered on 02/22/19 22:40; Admin Dose 1 APPLIC; Start 02/06/19 at 21:00 Multi-Ingredient Ointment (Aquaphor Oint 52.5 Gm) 1 applic BID TOP Last administered on 02/23/19 10:34; Admin Dose 1 APPLIC; Start 02/06/19 at 22:40 Morphine Sulfate (morphine) 0.25 mg Q4H PRN IV SEVERE PAIN LEVEL 7-10 Last administered on 02/21/19 06:06; Admin Dose 0.25 MG; Start 02/15/19 at 11:00 Methylprednisolone Sodium Succinate (Solu-Medrol) 40 mg DAILY IV Last administered on 02/23/19 08:43; Admin Dose 40 MG; Start 02/21/19 at 09:00 Insulin Glargine (Lantus) 12 units DAILY@2000 SC Last administered on 02/22/19at 22:48; Admin Dose 12 UNITS; Start 02/20/19 at 20:00 Furosemide (Lasix) 40 mg DAILY IV Last administered on 02/23/19at 08:43; Admin Dose 40 MG; Start 02/22/19 at 09:00 Lansoprazole (Prevacid) 30 mg BID@0600,1800 NGT Last administered on 02/23/19at 17:47; Admin Dose 30 MG; Start 02/21/19 at 18:00 IV Flush (NS 10 ml) 10 ml PRN PRN IV IV PROTOCOL; Start 02/21/19 at 21:00 Dextrose/Sodium Chloride 1,000 ml @ 60 mls/hr [id number] IV Last administered on 02/23/19at 11:32; Admin Dose 60 MLS/HR; Start 02/22/19 at 01:30 Assessment/Plan Assessment/Plan (Daily) Results/Medications Result Diagram: 02/22/1970402/22/19 07 IMP: 1. s/p Acute hypoxemic respiratory failure likely secondary to combination of volume overload and pneumonia, now requiring bilevel ventilation 2. Encephalopathy underlying dementia versus toxic metabolic, appears to be slowly improving possibly secondary to elevated sodium. 3. Valvular heart disease 4. Severe dysphagia 5. Status post septic shock likely secondary to above, persistent leukocytosis. 6. Anemia, no active GI bleeding 7. Skin diffuse excoriating skin lesion unclear etiology not consistent with history of "red man" syndrome. or pemphigus. Likely drug reaction. 8. Anemia 9. Status post septic shock RECS: 1. Continue bilevel ventilation 2. Continue broad-spectrum antibiotics 3. Infectious work-up as per ID 4. Monitor H&H 5. Diuresis as tolerated 6. Aspiration precautions 7. Am ABG/CXR TINO PAL MD Feb 23, 2019 19:00
[2019-02-23] MEDS: INSULIN GLARGINE [LANTus] (100 UNITS/ML) SYG SC SCH (20:00)
[2019-02-23] MEDS: TERAZOSIN 5 MG CAP NGT SCH (22:47)
[2019-02-23] MEDS: LATANOPROST 0.005% 2.5 ML OPH BOTH EYES SCH (22:47)
[2019-02-23] MEDS: OCULAR LUBRICANT 3.5 GM OPH OINT LEFT EYE SCH (22:47)
[2019-02-24] VITALS (27 sets, daily range): BP systolic 114–152; BP diastolic 44–78; PULSE 49–91; RESP 16–23
[2019-02-24] MEDS: INSULIN ASPART [NOVOLOG] 3 ML PEN SC SCH ×6 (01:00→21:00)
[2019-02-24] MEDS: DEXTROSE 50% 50 ML SYRINGE IV PRN ×2 (01:14→04:55)
[2019-02-24] MEDS: DEXTROSE 5%-0.45% NACL 1,000 ML IV SCH ×2 (03:30→04:08)
[2019-02-24] MEDS: LANSOPRAZOLE 30 MG CAP NGT SCH ×2 (05:04→17:40)
[2019-02-24] MEDS: LEVOTHYROXINE 125 MCG TAB NGT SCH (06:17)
--- NOTE | 2019-02-24 07:11 | PN ---
DATE: 02/23/2019 SUBJECTIVE: No complaint. The patient is lethargic. OBJECTIVE: VITAL SIGNS: Stable. The patient is on a BiPAP. LUNGS: Air entry diminished at both bases. ABDOMEN: Benign. SKIN: He has got excoriation of the skin, both on the face and lower extremity which is improving. CENTRAL NERVOUS SYSTEM: The patient is mentally obtunded. IMPRESSION: 1. Respiratory failure. The patient has bilateral pneumonia and fluid overload. 2. Hypoxemia. He is on a BiPAP. 3. Dysphagia. The patient is being fed through the NG tube. 4. Skin rash, extensive, which is improving. 5. Seizure disorder. 6. Pancreatic cystic mass, for which the patient needs EUS-FNA. 7. Diabetes mellitus. 8. Chronic renal failure. 9. Rheumatoid arthritis. 10. Peripheral vascular disease 11. Chronic atrial fibrillation. PLAN: To continue present care. Once the oxygenation improves, then we will proceed with placement of a G-tube. Dictated By: MICHELLE BRITO/NTS Conf#: [id number] DID#: [id number] CC: LILY LAMBERT MD; IVAN AKHTAR;*EndCC*
--- NOTE | 2019-02-24 08:10 | CONS ---
Assessment/Plan Assessment/Plan Hospital Course (Demo Recall) 88 yo male [facility] for [facility]B and febrile 1. Severe anemia likely due to chronic disease -s/p EGD and colonoscopy by Dr Frost 01/09/19 which didn't find an obvious GI etiology to explain anemia. AVM or a small lesion could be missed due to poor prep. Pt likely needs capsule endoscopy 2. Cystic lesion along pancreas body - 4.3 cm cystic lesion along the pancreas body, enlarged since 10/10/2012 (previously 2.4 cm). 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 -CEA, CA 19-9 wnl 3. Severe gastritis 4. Hemorrhoids 5. Hital hernia 6. A fib, -eliquis was stopped 01/06 during previous admission, on ASA 7. COPD 8. HTN 9. Hypothyroidism 10. Bilateral groin cellulitis 11. Rheumatoid arthritis. 12. Diabetes mellitus. 13. Peripheral vascular disease. 14. CHF 15. 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 Sepsis secondary to pneumonia 18. Encephalopathy secondary to sepsis 19. Hypothermia 20. Coagulopathy -INR 1.77 21. Thrombocytopenia -decreasing 23. Diarrhea -flexiseal -neg c diff 22. Positive wound culture -CORYNEBACTERIUM SPECIES Plan: Stool cultures Consider questran if stool cx negative Once pt is stable we will proceed with push endoscopy and peg placement Monitor HH and replace as needed Pt will need outpatient EUS to evaluate pancreatic mass Pt examined and plan of care discussed with Dr. Frost Consultation Date/Type/Reason Admit Date/Time Jan 17, 2019 at 15:58 Initial Consult Date 01/18/19 Requesting Provider: IVAN AKHTAR MD Date/Time of Note DATE: 02/24/19 TIME: 08:04 24 HR Interval Summary Free Text/Dictation Pt is on bipap, TF on hold for fear of aspiration. Alert but not following commands. Flexiseal Exam/Review of Systems Exam Vitals Vital Signs Date Temp Pulse Resp B/P (MAP) Pulse Ox O2 O2 Flow FiO2 Time Delivery Rate 02/24/19 68 18 131/63 100 07:47 (85) 02/24/19 30 05:05 02/24/19 97.9 03:27 02/23/19 BIPAP 16:38 Intake and Output 02/23/19 02/23/19 02/24/19 1515:00 23:00 07:00 IntakeIntake Total 920 ml OutputOutput Total 3050 ml 650 ml BalanceBalance -2130 ml -650 ml Constitutional: alert Head: normocephalic Eyes: PERRL Respiratory: diminished breath sounds Cardiovascular: regular rate and rhythm Gastrointestinal: soft, non-tender, bowel sounds Results Result Diagram: 02/23/19 0624 02/23/19 0624 Results 24hrs Laboratory Tests Test 02/23/19 12:22 02/23/19 17:43 02/23/19 20:42 02/24/19 01:10 Bedside Glucose 177 93 80 57 L Test 02/24/19 01:33 02/24/19 01:52 02/24/19 04:46 02/24/19 05:00 Bedside Glucose 123 105 64 L Blood Gas Specimen Blood arterial Source Arterial Blood 02/24/2019 4:40:40 Date Drawn AM Arterial Blood pH 7.388 (Temp corrected) Arterial Blood 47.9 H pCO2 (Temp correct) Arterial Blood pO2 72.2 L (Temp corrected) Arterial Blood 28.2 H HCO3 Arterial Blood 2.8 Base Excess Arterial Blood 94.5 L Oxygen Saturation Manuel Test ACCEPTAB Arterial Blood Gas Left Radial Puncture Site Arterial 1.0 Blood Carboxyhemog lobin Arterial Blood 0.5 Methemoglobin Blood Gas A-a O2 85.4 H Differential Oxyhemoglobin 93.1 Percent Blood Gas 37.0 Temperature Blood Gas 20.0 Respiration Rate Blood Gas Actual 22 Respiration Rate Blood Gas Modality MASK - BIPAP FiO2 30.0 Blood Gas Pressure 10 Support Blood Gas 18/8 IPAP/EPAP Ratio Blood Gas Notified RI Whom Blood Gas Notified 02/24/2019 4:55:26 Time AM Test 02/24/19 05:12 02/24/19 05:29 02/24/19 07:55 Bedside Glucose 126 106 70 Medications Medication Current Medications Acetaminophen (Tylenol Tab) 650 mg Q4H PRN PO PAIN Last administered on 02/11/19at 21:29; Admin Dose 650 MG; Start 01/17/19 at 18:17 Miscellaneous Information (Pending [facility] Order For Wound Care) This patient ramirez... PRN PRN XX WOUND CARE; Start 01/17/19 at 18:17 Albuterol/ Ipratropium (Duoneb) 3 ml Q2H RESP THERAPY PRN HHN SHORTNESS OF BREATH Last administered on 02/13/19 05:52; Admin Dose 3 ML; Start 01/17/19 at 18:17 Bisacodyl (Dulcolax) 10 mg BID PRN PO CONSTIPATION; Start 01/17/19 at 18:17; Status Hold Folic Acid (Folic Acid) 1 mg DAILY PO Last administered on 02/23/19 08:43; Admin Dose 1 MG; Start 01/17/19 at 18:17 Latanoprost (Xalatan) 1 drop HS BOTH EYES Last administered on 02/23/19 22:47; Admin Dose 1 DROP; Start 01/17/19 at 18:17 Nitroglycerin (Nitroglycerin (Sl Tab) 0.4 Mg) 0.4 tab Q5M PRN SL CHEST PAIN; Start 01/17/19 at 18:17 IV Flush (NS 3 ml) 3 ml PER PROTOCOL IV ; Start 01/17/19 at 18:17 Glucose (Glutose) 15 gm Q15M PRN PO DECREASED GLUCOSE; Start 01/17/19 at 18:17 Glucose (Glutose) 22.5 gm Q15M PRN PO DECREASED GLUCOSE; Start 01/17/19 at 18:17 Dextrose (D50w Syringe) 25 ml Q15M PRN IV DECREASED GLUCOSE Last administered on 02/24/19 04:55; Admin Dose 25 ML; Start 01/17/19 at 18:17 Dextrose (D50w Syringe) 50 ml Q15M PRN IV DECREASED GLUCOSE; Start 01/17/19 at 18:17 Glucagon (Glucagen) 1 mg Q15M PRN IM DECREASED GLUCOSE Last administered on 02/11/19at 17:55; Admin Dose 1 MG; Start 01/17/19 at 18:17 Glucose (Glutose) 15 gm Q15M PRN BUCCAL DECREASED GLUCOSE; Start 01/17/19 at 18:17 Bisacodyl (Dulcolax Supp) 10 mg DAILY PRN [place] CONSTIPATION; Start 01/17/19 at 18:17 Zinc Acetate/ Diphenhydramine (Benadryl 2% Cr) 1 applic Q6H PRN TOP ITCHING Last administered on 02/21/19at 20:38; Admin Dose 1 APPLIC; Start 01/19/19 at 16:37 IV Flush (NS 10 ml) 10 ml PRN PRN IV IV PROTOCOL; Start 01/20/19 at 14:30 Cyanocobalamin (Vitamin B12 Inj) 1,000 mcg Q7D IM Last administered on 02/17/19 08:30; Admin Dose 1,000 MCG; Start 02/03/19 at 09:00 Metoprolol Tartrate (Lopressor) 5 mg Q4H PRN IV HR>110 Hold SBP<100; Start 01/26/19 at 14:30 Enoxaparin Sodium (Lovenox) 60 mg DAILY SC Last administered on 02/03/19 08:06; Admin Dose 60 MG; Start 01/28/19 at 09:00; Status Hold Docusate Sodium (Colace Liquid Cup) 100 mg BID NGT ; Start 01/27/19 at 22:00; Status Hold Terazosin HCl (Hytrin) 10 mg HS NGT Last administered on 02/23/19 22:47; Admin Dose 10 MG; Start 01/28/19 at 21:00 Levothyroxine Sodium (Synthroid) 125 mcg BEFORE BREAKFAST NGT Last administered on 02/24/19 06:17; Admin Dose 125 MCG; Start 01/28/19 at 07:00 Ferrous Sulfate (Feosol Liquid Cup) 300 mg WITH MEALS GTB Last administered on 02/23/19 17:47; Admin Dose 300 MG; Start 01/28/19 at 11:30 Multivitamins (Multivitamin) 30 ml DAILY GTB Last administered on 02/23/19 08:42; Admin Dose 30 ML; Start 01/28/19 at 11:00 Nystatin/ Triamcinolone Acetonide (Mycolog Oint) 1 applic BID TOP Last administered on 02/23/19 22:49; Admin Dose 1 APPLIC; Start 01/28/19 at 22:30 Insulin Aspart (Novolog Insulin Pen) NOVOLOG *MILD* ALGORI... Q4 SC Last administered on 02/23/19 12:30; Admin Dose 1 UNIT; Start 01/29/19 at 05:00 Albuterol/ Ipratropium (Duoneb) 3 ml Q6HWA RESP THERAPY HHN Last administered on 02/23/19 20:01; Admin Dose 3 ML; Start 01/29/19 at 14:00 Epoetin Dae-epbx (RETACRIT(non-esrd)) 40,000 unit Mo@1700 SC Last administered on 02/17/19 17:18; Admin Dose 40,000 UNIT; Start 02/03/19 at 17:00 Eye Lubricant (Refresh Plus) 1 drop QID BOTH EYES Last administered on 02/23/19 22:46; Admin Dose 1 DROP; Start 02/06/19 at 09:00 Eye Lubricant (Akwa Oint) 1 applic HS LEFT EYE Last administered on 02/23/19 22:47; Admin Dose 1 APPLIC; Start 02/06/19 at 21:00 Multi-Ingredient Ointment (Aquaphor Oint 52.5 Gm) 1 applic BID TOP Last administered on 02/23/19 22:48; Admin Dose 1 APPLIC; Start 02/06/19 at 22:40 Morphine Sulfate (morphine) 0.25 mg Q4H PRN IV SEVERE PAIN LEVEL 7-10 Last administered on 02/21/19 06:06; Admin Dose 0.25 MG; Start 02/15/19 at 11:00 Methylprednisolone Sodium Succinate (Solu-Medrol) 40 mg DAILY IV Last administered on 02/23/19 08:43; Admin Dose 40 MG; Start 02/21/19 at 09:00 Insulin Glargine (Lantus) 12 units DAILY@2000 SC Last administered on 02/22/19 22:48; Admin Dose 12 UNITS; Start 02/20/19 at 20:00 Furosemide (Lasix) 40 mg DAILY IV Last administered on 02/23/19 08:43; Admin Dose 40 MG; Start 02/22/19 at 09:00 Lansoprazole (Prevacid) 30 mg BID@0600,1800 NGT Last administered on 02/24/19 05:04; Admin Dose 30 MG; Start 02/21/19 at 18:00 IV Flush (NS 10 ml) 10 ml PRN PRN IV IV PROTOCOL; Start 02/21/19 at 21:00 Dextrose/Sodium Chloride 1,000 ml @ 60 mls/hr [id number] IV Last administered on 02/24/19 04:08; Admin Dose 60 MLS/HR; Start 02/22/19 at 01:30 GISELLA VENTURA Feb 24, 2019 08:10
[2019-02-24] MEDS: ALBUTEROL/IPRATROPIUM (NEB) 3 ML AMP HHN SCH ×3 (08:16→20:13)
[2019-02-24] MEDS: FERROUS SULFATE 60 MG/ML 5ML CUP GTB SCH ×3 (09:21→17:35)
[2019-02-24] MEDS: FUROSEMIDE 40 MG INJ IV SCH (09:21)
[2019-02-24] MEDS: METHYLPREDNISOLONE 40 MG INJ IV SCH (09:21)
[2019-02-24] MEDS: FOLIC ACID 1 MG TAB PO SCH (09:21)
[2019-02-24] MEDS: CYANOCOBALAMIN 1000 MCG INJ IM SCH (09:21)
[2019-02-24] MEDS: BALSAM PERU/CASTOR OIL 60 GM TUBE TOP SCH ×2 (09:22→21:18)
[2019-02-24] MEDS: CARBOXYMETHYLCELLULOSE 0.5% 0.4 ML OPH BOTH EYES SCH ×4 (09:22→21:00)
[2019-02-24] MEDS: MULTIVITAMINS 30 ML CUP GTB SCH (09:22)
[2019-02-24] MEDS: NYSTATIN/TRIAMCINOLONE 15 GM OINT TOP SCH ×2 (09:23→21:19)
[2019-02-24] MEDS: AQUAPHOR 52.5 GM OINT TOP SCH ×2 (09:23→21:18)
[2019-02-24] MEDS: DEXTROSE 10% 1,000 ML IV SCH (11:11)
--- NOTE | 2019-02-24 12:27 | CONS ---
Assessment/Plan Assessment/Plan Hospital Course (Demo Recall) IMPRESSION: 1. Atrial fibrillation, currently rate controlled.-off systemic anticoagulation due to recurrent anemia and GIB when on anticoagulation and acute worsening requiring transfusions. Having some pauses> 3 seconds and HR down to high 30's off joseph agents. ? resp vs primary cardiac 2. Possible congestive heart failure by chest x-ray, which will be diastolic, acute on chronic by most recent echo with an EF of 60%. 3. Tricuspid regurgitation, moderate by most recent echo. 4. Acute on chronic renal failure-mild worsening 5. Possible pneumonia. 6. History of coronary artery disease, status post coronary artery bypass graft surgery. 7. Dyslipidemia. 8. Rheumatoid arthritis. 9. Groin cellulitis. 10. Anemia-worsening again today. s/p endoscopy during this admission 11. Diabetes mellitus. 12. Sepsis/leukocytosis 14. abdominal mass 15. Rash-all over body with skin chaffing at this time, probable drug reaction- significantly improved 16. Encephalopathy-ongoing. MRI negative for acute CVA 17. coagulopathy-ongoing and mildly improved at last check Recc: -on tele -serial ecg's -Continue statin -Continue broad spectrum abx's and f/u cx data -Contineu topical treatment to skin -off anticoagulation secondary to anemia/GIB requiring transfusions recurrently when challenged -Holding BB given rashel and pauses -transfuse PRBC's as necessary -Now on HD for volume control. Will follow -now on steroids/bronchodilators follow resp status and wean BIPAP as tolerated -Now full code but speaking with family about direction of care and code status Consultation Date/Type/Reason Admit Date/Time Jan 17, 2019 at 15:58 Initial Consult Date 01/18/19 Type of Consult Cardiology Reason for Consultation AF Requesting Provider: IVAN AKHTAR MD Date/Time of Note DATE: 02/24/19 TIME: 12:21 Exam/Review of Systems Vital Signs Vitals Vital Signs Date Temp Pulse Resp B/P (MAP) Pulse Ox O2 O2 Flow FiO2 Time Delivery Rate 02/24/19 96 3.0 12:15 02/24/19 65 18 126/61 11:21 (82) 02/24/19 30 09:20 02/24/19 97.9 03:27 02/23/19 BIPAP 16:38 Intake and Output 02/23/19 02/23/19 02/24/19 1515:00 23:00 07:00 IntakeIntake Total 920 ml OutputOutput Total 3050 ml 650 ml BalanceBalance -2130 ml -650 ml Exam Exam Review of Systems: CONSTITUTIONAL: No fevers, chills. PULMONARY: No sob CARDIOVASCULAR: No chest pain/palpitations GASTROINTESTINAL: No nausea/vomiting. GENITOURINARY: No hematuria/dysuria. MUSCULOSKELETAL: No myagias/arthalgias. PSYCHIATRIC: The patient denies depression. NEUROLOGIC: No weakness Constitutional: other (awake but lethargic) Psych: no complaints Head: normocephalic ENMT: mucosa pink and moist, other (BIPAP on) Neck: jvd (9 cm water) Respiratory: diminished breath sounds (at bases/B) Cardiovascular: irregular rhythm Gastrointestinal: soft, non-tender Musculoskeletal: muscle weakness (generalized) Extremities: edema (trace/B) Neurological: other (No focal deficits) Labs Result Diagram: 02/24/19 0709 02/24/19 0709 Results 24hrs Laboratory Tests Test 02/23/19 12:22 02/23/19 17:43 02/23/19 20:42 02/24/19 01:10 Bedside Glucose 177 93 80 57 L Test 02/24/19 01:33 02/24/19 01:52 02/24/19 04:46 02/24/19 05:00 Bedside Glucose 123 105 64 L Blood Gas Specimen Blood arterial Source Arterial Blood 02/24/2019 4:40:40 Date Drawn AM Arterial Blood pH 7.388 (Temp corrected) Arterial Blood 47.9 H pCO2 (Temp correct) Arterial Blood pO2 72.2 L (Temp corrected) Arterial Blood 28.2 H HCO3 Arterial Blood 2.8 Base Excess Arterial Blood 94.5 L Oxygen Saturation Manuel Test ACCEPTAB Arterial Blood Gas Left Radial Puncture Site Arterial 1.0 Blood Carboxyhemog lobin Arterial Blood 0.5 Methemoglobin Blood Gas A-a O2 85.4 H Differential Oxyhemoglobin 93.1 Percent Blood Gas 37.0 Temperature Blood Gas 20.0 Respiration Rate Blood Gas Actual 22 Respiration Rate Blood Gas Modality MASK - BIPAP FiO2 30.0 Blood Gas Pressure 10 Support Blood Gas 18/8 IPAP/EPAP Ratio Blood Gas Notified MA Whom Blood Gas Notified 02/24/2019 4:55:26 Time AM Test 02/24/19 05:12 6/3/19 05:29 02/24/19 07:09 02/24/19 07:55 Bedside Glucose 126 106 70 White Blood Count 8.2 Red Blood Count 2.62 L Hemoglobin 7.5 L Hematocrit 24.9 L Mean Corpuscular 95.0 Volume Mean Corpuscular 28.6 L Hemoglobin Mean Corpuscular 30.1 L Hemoglobin Concent Red Cell 21.0 H Distribution Width Platelet Count 141 Mean Platelet 13.1 H Volume Immature 0.500 H Granulocytes % Neutrophils % 77.0 Lymphocytes % 16.6 Monocytes % 5.9 Eosinophils % 0.0 Basophils % 0.0 Nucleated Red 1.3 H Blood Cells % Immature 0.040 H Granulocytes # Neutrophils # 6.3 Lymphocytes # 1.4 Monocytes # 0.5 Eosinophils # 0.0 Basophils # 0.0 Nucleated Red 0.1 H Blood Cells # Sodium Level 146 H Potassium Level 3.9 Chloride Level 113 H Carbon Dioxide 25 Level Anion Gap 8 Blood Urea 85 H Nitrogen Creatinine 1.29 H Est Glomerular Filtrat Rate mL/min Glucose Level 57 #L Calcium Level 8.1 L Test 02/24/19 11:49 Bedside Glucose 65 L Medications Medications Current Medications Acetaminophen (Tylenol Tab) 650 mg Q4H PRN PO PAIN Last administered on 02/11/19at 21:29; Admin Dose 650 MG; Start 01/17/19 at 18:17 [facility]iscellaneous [facility] This patient ramirez... PRN PRN XX WOUND CARE; Start 01/17/19 at 18:17 Albuterol/ Ipratropium (Duoneb) 3 ml Q2H RESP THERAPY PRN HHN SHORTNESS OF BREATH Last administered on 02/13/19at 05:52; Admin Dose 3 ML; Start 01/17/19 at 18:17 Bisacodyl (Dulcolax) 10 mg BID PRN PO CONSTIPATION; Start 01/17/19 at 18:17; Status Hold Folic Acid (Folic Acid) 1 mg DAILY PO Last administered on 02/24/19at 09:21; Admin Dose 1 MG; Start 01/17/19 at 18:17 Latanoprost (Xalatan) 1 drop HS BOTH EYES Last administered on 02/23/19at 22:47; Admin Dose 1 DROP; Start 01/17/19 at 18:17 Nitroglycerin (Nitroglycerin (Sl Tab) 0.4 Mg) 0.4 tab Q5M PRN SL CHEST PAIN; Start 01/17/19 at 18:17 IV Flush (NS 3 ml) 3 ml PER PROTOCOL IV ; Start 01/17/19 at 18:17 Glucose (Glutose) 15 gm Q15M PRN PO DECREASED GLUCOSE; Start 01/17/19 at 18:17 Glucose (Glutose) 22.5 gm Q15M PRN PO DECREASED GLUCOSE; Start 01/17/19 at 18:17 Dextrose (D50w Syringe) 25 ml Q15M PRN IV DECREASED GLUCOSE Last administered on 02/24/19at 04:55; Admin Dose 25 ML; Start 01/17/19 at 18:17 Dextrose (D50w Syringe) 50 ml Q15M PRN IV DECREASED GLUCOSE; Start 01/17/19 at 18:17 Glucagon (Glucagen) 1 mg Q15M PRN IM DECREASED GLUCOSE Last administered on 02/11/19at 17:55; Admin Dose 1 MG; Start 01/17/19 at 18:17 Glucose (Glutose) 15 gm Q15M PRN BUCCAL DECREASED GLUCOSE; Start 01/17/19 at 18:17 Bisacodyl (Dulcolax Supp) 10 mg DAILY PRN [place] CONSTIPATION; Start 01/17/19 at 18:17 Zinc Acetate/ Diphenhydramine (Benadryl 2% Cr) 1 applic Q6H PRN TOP ITCHING Last administered on 02/21/19at 20:38; Admin Dose 1 APPLIC; Start 01/19/19 at 16:37 IV Flush (NS 10 ml) 10 ml PRN PRN IV IV PROTOCOL; Start 01/20/19 at 14:30 Cyanocobalamin (Vitamin B12 Inj) 1,000 mcg Q7D IM Last administered on 02/24/19at 09:21; Admin Dose 1,000 MCG; Start 02/03/19 at 09:00 Metoprolol Tartrate (Lopressor) 5 mg Q4H PRN IV HR>110 Hold SBP<100; Start 01/26/19 at 14:30 Enoxaparin Sodium (Lovenox) 60 mg DAILY SC Last administered on 02/03/19at 08:06; Admin Dose 60 MG; Start 01/28/19 at 09:00; Status Hold Docusate Sodium (Colace Liquid Cup) 100 mg BID NGT ; Start 01/27/19 at 22:00; Status Hold Terazosin HCl (Hytrin) 10 mg HS NGT Last administered on 02/23/19 22:47; Admin Dose 10 MG; Start 01/28/19 at 21:00 Levothyroxine Sodium (Synthroid) 125 mcg BEFORE BREAKFAST NGT Last administered on 02/24/19 06:17; Admin Dose 125 MCG; Start 01/28/19 at 07:00 Ferrous Sulfate (Feosol Liquid Cup) 300 mg WITH MEALS GTB Last administered on 02/24/19 12:08; Admin Dose 300 MG; Start 01/28/19 at 11:30 Multivitamins (Multivitamin) 30 ml DAILY GTB Last administered on 02/24/19 09:22; Admin Dose 30 ML; Start 01/28/19 at 11:00 Nystatin/ Triamcinolone Acetonide (Mycolog Oint) 1 applic BID TOP Last administered on 02/24/19 09:23; Admin Dose 1 APPLIC; Start 01/28/19 at 22:30 Insulin Aspart (Novolog Insulin Pen) NOVOLOG *MILD* ALGORI... Q4 SC Last administered on 02/23/19 12:30; Admin Dose 1 UNIT; Start 01/29/19 at 05:00 Albuterol/ Ipratropium (Duoneb) 3 ml Q6HWA RESP THERAPY HHN Last administered on 02/24/19 08:16; Admin Dose 3 ML; Start 01/29/19 at 14:00 Epoetin Dae-epbx (RETACRIT(non-esrd)) 40,000 unit Mo@1700 SC Last administered on 02/17/19 17:18; Admin Dose 40,000 UNIT; Start 02/03/19 at 17:00 Eye Lubricant (Refresh Plus) 1 drop QID BOTH EYES Last administered on 02/24/19 12:08; Admin Dose 1 DROP; Start 02/06/19 at 09:00 Eye Lubricant (Akwa Oint) 1 applic HS LEFT EYE Last administered on 02/23/19 22:47; Admin Dose 1 APPLIC; Start 02/06/19 at 21:00 Multi-Ingredient Ointment (Aquaphor Oint 52.5 Gm) 1 applic BID TOP Last administered on 02/24/19 09:23; Admin Dose 1 APPLIC; Start 02/06/19 at 22:40 Morphine Sulfate (morphine) 0.25 mg Q4H PRN IV SEVERE PAIN LEVEL 7-10 Last administered on 02/21/19 06:06; Admin Dose 0.25 MG; Start 02/15/19 at 11:00 Methylprednisolone Sodium Succinate (Solu-Medrol) 40 mg DAILY IV Last administered on 02/24/19 09:21; Admin Dose 40 MG; Start 02/21/19 at 09:00 Insulin Glargine (Lantus) 12 units DAILY@2000 SC Last administered on 02/22/19 22:48; Admin Dose 12 UNITS; Start 02/20/19 at 20:00 Furosemide (Lasix) 40 mg DAILY IV Last administered on 02/24/19 09:21; Admin Dose 40 MG; Start 02/22/19 at 09:00 Lansoprazole (Prevacid) 30 mg BID@0600,1800 NGT Last administered on 02/24/19 05:04; Admin Dose 30 MG; Start 02/21/19 at 18:00 IV Flush (NS 10 ml) 10 ml PRN PRN IV IV PROTOCOL; Start 02/21/19 at 21:00 Dextrose 1,000 ml @ 60 mls/hr [id number] IV Last administered on 02/24/19 11:11; Admin Dose 60 MLS/HR; Start 02/24/19 at 11:00 MARJORIE JAIN Feb 24, 2019 12:27
--- NOTE | 2019-02-24 12:28 | CONS ---
Consult Date/Type/Reason Admit Date/Time Jan 17, 2019 at 15:58 Initial Consult Date 01/18/19 Type of Consult Pulmonary Requesting Provider: IVAN AKHTAR MD Date/Time of Note DATE: 02/24/19 TIME: 12:17 Subjective More alert this morning. Continues bilevel ventilation. Objective Vital Signs Date Temp Pulse Resp B/P (MAP) Pulse Ox O2 O2 Flow FiO2 Time Delivery Rate 02/24/19 96 3.0 12:15 02/24/19 65 18 126/61 11:21 (82) 02/24/19 30 09:20 02/24/19 97.9 03:27 02/23/19 BIPAP 16:38 Intake and Output 02/23/19 02/23/19 02/24/19 1515:00 23:00 07:00 IntakeIntake Total 920 ml OutputOutput Total 3050 ml 650 ml BalanceBalance -2130 ml -650 ml Exam GENERAL: Elderly gentleman on bilevel ventilation confused and mildly agitated. VITAL SIGNS: per chart NECK: Supple. No JVD or lymphadenopathy. CARDIAC EXAM: S1, S2. No added sounds or murmurs. CHEST: Diminished air entry bilaterally ABDOMEN: Soft, nontender. No guarding or rebound. EXTREMITIES: No cyanosis, clubbing or edema. NEUROLOGIC: Generalized weakness. No focal deficits. Vent Setting Ventilator Support Mode: AC Fraction of Inspired Oxygen pe: 50 Positive End Expiratory Pressu: 5.0 Results/Medications Result Diagram: 02/24/19 0709 02/24/19 0709 Results 24 hrs Laboratory Tests Test 02/23/19 12:22 02/23/19 17:43 02/23/19 20:42 02/24/19 01:10 Bedside Glucose 177 93 80 57 L Test 02/24/19 01:33 02/24/19 01:52 02/24/19 04:46 02/24/19 05:00 Bedside Glucose 123 105 64 L Blood Gas Specimen Blood arterial Source Arterial Blood 02/24/2019 4:40:40 Date Drawn AM Arterial Blood pH 7.388 (Temp corrected) Arterial Blood 47.9 H pCO2 (Temp correct) Arterial Blood pO2 72.2 L (Temp corrected) Arterial Blood 28.2 H HCO3 Arterial Blood 2.8 Base Excess Arterial Blood 94.5 L Oxygen Saturation Manuel Test ACCEPTAB Arterial Blood Gas Left Radial Puncture Site Arterial 1.0 Blood Carboxyhemog lobin Arterial Blood 0.5 Methemoglobin Blood Gas A-a O2 85.4 H Differential Oxyhemoglobin 93.1 Percent Blood Gas 37.0 Temperature Blood Gas 20.0 Respiration Rate Blood Gas Actual 22 Respiration Rate Blood Gas Modality MASK - BIPAP FiO2 30.0 Blood Gas Pressure 10 Support Blood Gas 18/8 IPAP/EPAP Ratio Blood Gas Notified MA Whom Blood Gas Notified 02/24/2019 4:55:26 Time AM Test 02/24/19 05:12 02/24/19 05:29 02/24/19 07:09 02/24/19 07:55 Bedside Glucose 126 106 70 White Blood Count 8.2 Red Blood Count 2.62 L Hemoglobin 7.5 L Hematocrit 24.9 L Mean Corpuscular 95.0 Volume Mean Corpuscular 28.6 L Hemoglobin Mean Corpuscular 30.1 L Hemoglobin Concent Red Cell 21.0 H Distribution Width Platelet Count 141 Mean Platelet 13.1 H Volume Immature 0.500 H Granulocytes % Neutrophils % 77.0 Lymphocytes % 16.6 Monocytes % 5.9 Eosinophils % 0.0 Basophils % 0.0 Nucleated Red 1.3 H Blood Cells % Immature 0.040 H Granulocytes # Neutrophils # 6.3 Lymphocytes # 1.4 Monocytes # 0.5 Eosinophils # 0.0 Basophils # 0.0 Nucleated Red 0.1 H Blood Cells # Sodium Level 146 H Potassium Level 3.9 Chloride Level 113 H Carbon Dioxide 25 Level Anion Gap 8 Blood Urea 85 H Nitrogen Creatinine 1.29 H Est Glomerular Filtrat Rate mL/min Glucose Level 57 #L Calcium Level 8.1 L Test 02/24/19 11:49 Bedside Glucose 65 L Medications Current Medications Acetaminophen (Tylenol Tab) 650 mg Q4H PRN PO PAIN Last administered on 02/11/19at 21:29; Admin Dose 650 MG; Start 01/17/19 at 18:17 Miscellaneous Information [facility] This patient ramirez... PRN PRN XX WOUND CARE; Start 01/17/19 at 18:17 Albuterol/ Ipratropium (Duoneb) 3 ml Q2H RESP THERAPY PRN HHN SHORTNESS OF BRAN TH Last administered on 02/13/19at 05:52; Admin Dose 3 ML; Start 01/17/19 at 18:17 Bisacodyl (Dulcolax) 10 mg BID PRN PO CONSTIPATION; Start 01/17/19 at 18:17; Status Hold Folic Acid (Folic Acid) 1 mg DAILY PO Last administered on 02/24/19at 09:21; Admin Dose 1 MG; Start 01/17/19 at 18:17 Latanoprost (Xalatan) 1 drop HS BOTH EYES Last administered on 02/23/19at 22:47; Admin Dose 1 DROP; Start 01/17/19 at 18:17 Nitroglycerin (Nitroglycerin (Sl Tab) 0.4 Mg) 0.4 tab Q5M PRN SL CHEST PAIN; Start 01/17/19 at 18:17 IV Flush (NS 3 ml) 3 ml PER PROTOCOL IV ; Start 01/17/19 at 18:17 Glucose (Glutose) 15 gm Q15M PRN PO DECREASED GLUCOSE; Start 01/17/19 at 18:17 Glucose (Glutose) 22.5 gm Q15M PRN PO DECREASED GLUCOSE; Start 01/17/19 at 18:17 Dextrose (D50w Syringe) 25 ml Q15M PRN IV DECREASED GLUCOSE Last administered on 02/24/19at 04:55; Admin Dose 25 ML; Start 01/17/19 at 18:17 Dextrose (D50w Syringe) 50 ml Q15M PRN IV DECREASED GLUCOSE; Start 01/17/19 at 18:17 Glucagon (Glucagen) 1 mg Q15M PRN IM DECREASED GLUCOSE Last administered on 02/11/19at 17:55; Admin Dose 1 MG; Start 01/17/19 at 18:17 Glucose (Glutose) 15 gm Q15M PRN BUCCAL DECREASED GLUCOSE; Start 01/17/19 at 18:17 Bisacodyl (Dulcolax Supp) 10 mg DAILY PRN [place] CONSTIPATION; Start 01/17/19 at 18:17 Zinc Acetate/ Diphenhydramine (Benadryl 2% Cr) 1 applic Q6H PRN TOP ITCHING Last administered on 02/21/19at 20:38; Admin Dose 1 APPLIC; Start 01/19/19 at 16:37 IV Flush (NS 10 ml) 10 ml PRN PRN IV IV PROTOCOL; Start 01/20/19 at 14:30 Cyanocobalamin (Vitamin B12 Inj) 1,000 mcg Q7D IM Last administered on 02/24/19 09:21; Admin Dose 1,000 MCG; Start 02/03/19 at 09:00 Metoprolol Tartrate (Lopressor) 5 mg Q4H PRN IV HR>110 Hold SBP<100; Start 01/26/19 at 14:30 Enoxaparin Sodium (Lovenox) 60 mg DAILY SC Last administered on 02/03/19 08:06; Admin Dose 60 MG; Start 01/28/19 at 09:00; Status Hold Docusate Sodium (Colace Liquid Cup) 100 mg BID NGT ; Start 01/27/19 at 22:00; Status Hold Terazosin HCl (Hytrin) 10 mg HS NGT Last administered on 02/23/19 22:47; Admin Dose 10 MG; Start 01/28/19 at 21:00 Levothyroxine Sodium (Synthroid) 125 mcg BEFORE BREAKFAST NGT Last administered on 02/24/19 06:17; Admin Dose 125 MCG; Start 01/28/19 at 07:00 Ferrous Sulfate (Feosol Liquid Cup) 300 mg WITH MEALS GTB Last administered on 02/24/19 12:08; Admin Dose 300 MG; Start 01/28/19 at 11:30 Multivitamins (Multivitamin) 30 ml DAILY GTB Last administered on 02/24/19 09:22; Admin Dose 30 ML; Start 01/28/19 at 11:00 Nystatin/ Triamcinolone Acetonide (Mycolog Oint) 1 applic BID TOP Last administered on 02/24/19 09:23; Admin Dose 1 APPLIC; Start 01/28/19 at 22:30 Insulin Aspart (Novolog Insulin Pen) NOVOLOG *MILD* ALGORI... Q4 SC Last administered on 02/23/19 12:30; Admin Dose 1 UNIT; Start 01/29/19 at 05:00 Albuterol/ Ipratropium (Duoneb) 3 ml Q6HWA RESP THERAPY HHN Last administered on 02/24/19 08:16; Admin Dose 3 ML; Start 01/29/19 at 14:00 Epoetin Dae-epbx (RETACRIT(non-esrd)) 40,000 unit Mo@1700 SC Last administered on 02/17/19 17:18; Admin Dose 40,000 UNIT; Start 02/03/19 at 17:00 Eye Lubricant (Refresh Plus) 1 drop QID BOTH EYES Last administered on 02/24/19 12:08; Admin Dose 1 DROP; Start 02/06/19 at 09:00 Eye Lubricant (Akwa Oint) 1 applic HS LEFT EYE Last administered on 02/23/19 22:47; Admin Dose 1 APPLIC; Start 02/06/19 at 21:00 Multi-Ingredient Ointment (Aquaphor Oint 52.5 Gm) 1 applic BID TOP Last administered on 02/24/19 09:23; Admin Dose 1 APPLIC; Start 02/06/19 at 22:40 Morphine Sulfate (morphine) 0.25 mg Q4H PRN IV SEVERE PAIN LEVEL 7-10 Last administered on 02/21/19 06:06; Admin Dose 0.25 MG; Start 02/15/19 at 11:00 Methylprednisolone Sodium Succinate (Solu-Medrol) 40 mg DAILY IV Last administered on 02/24/19 09:21; Admin Dose 40 MG; Start 02/21/19 at 09:00 Insulin Glargine (Lantus) 12 units DAILY@2000 SC Last administered on 02/22/19 22:48; Admin Dose 12 UNITS; Start 02/20/19 at 20:00 Furosemide (Lasix) 40 mg DAILY IV Last administered on 02/24/19 09:21; Admin Dose 40 MG; Start 02/22/19 at 09:00 Lansoprazole (Prevacid) 30 mg BID@0600,1800 NGT Last administered on 02/24/19 05:04; Admin Dose 30 MG; Start 02/21/19 at 18:00 IV Flush (NS 10 ml) 10 ml PRN PRN IV IV PROTOCOL; Start 02/21/19 at 21:00 Dextrose 1,000 ml @ 60 mls/hr [id number] IV Last administered on 02/24/19 11:11; Admin Dose 60 MLS/HR; Start 02/24/19 at 11:00 Assessment/Plan Hospital Course (Demo Recall) IMP: 1. s/p Acute hypoxemic respiratory failure likely secondary to combination of volume overload and pneumonia, now requiring bilevel ventilation 2. Encephalopathy underlying dementia versus toxic metabolic, appears to be slowly improving possibly secondary to elevated sodium. 3. Valvular heart disease 4. Severe dysphagia 5. Status post septic shock likely secondary to above, persistent leukocytosis. 6. Anemia, no active GI bleeding 7. Skin diffuse excoriating skin lesion unclear etiology not consistent with history of "red man" syndrome. or pemphigus. Likely drug reaction. 8. Anemia 9. Status post septic shock RECS: 1. Trial of nasal cannula O2 2. Continue broad-spectrum antibiotics 3. Infectious work-up as per ID 4. Monitor H&H 5. Diuresis as tolerated 6. G-tube placement Discussed with family. Overall prognosis is extremely poor and they understand the importance of focusing on quality of life. They will reconsider CODE STATUS hopefully revert to DNR. Also consider palliative care approach as opposed to current aggressive measures. DIANA MCRAE MD, [facility] Feb 24, 2019 12:27
--- NOTE | 2019-02-24 13:18 | PN ---
Date/Time of Note Date/Time of Note DATE: 02/24/19 TIME: 13:14 Assessment/Plan VTE Prophylaxis Risk score (from Ns)>0 risk: 8 SCD applied (from Ns): Yes Pharmacological prophylaxis: NA/contraindicated Pharm contraindication: low risk/ambulating Lines/Catheters IV 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 Septic shock now on pressors likely secondary to pneumonia on levophed resolved # Hypothermia ? sepsis #. 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 Chronic renal failure likely secondary to sepsis, improved, normal creatinine #. Hypertension.currently hypotensive resolved # Impending respiratory failure on high flow likely secondary to fluid overload/pneumonia # Anasarca # Hyperlipidemia. # Hypothyroidism. # Bilateral groin cellulitis more likely associated with mateus, patches in groin and axilla bilaterally. skin peeling # History of rheumatoid arthritis with joint deformities. # Diabetes type 2. # Hx of CABGx2, carotid stent #. Peripheral vascular disease. #. Chronic a.fib, now on lovenox #. right arm edema # Neoplasm per CT abdomen. 4.3 cm cystic lesion along the pancreas body, enlarged since 10/10/2012 (previously 2.4 cm). 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 # Possible allergic skin reaction ? drug present since admission> improved s/p biopsy/ Amrik Betancourt > limit results solar keratosis # hypoThermia #Hypernatremia vasiliy due to dehydration improving # metabolic alkalosis Plan -SP post dialysis which was started -HD again today for fluid removal -Lantus due to hypoglycemia switch fluids to D10 and will resume feeding also -Monitor kidney function Daily with Lasix 40 IV daily and IV Solu-Medrol daily - nebs, - GI consult> hold lovenox due to possible bleeding, iv ppi> G-tube on hold currently improved pending improvement in respiratory status - Holding aspirin and Lovenox due to GI bleeding/anemia - GI and DVT prophylaxsis -oncology consul dr Lorezno aware:he said Ca 19-9 is negative indicating unlikely malignant. This may be a pseudocyst or a precancerous pancreatic lesion. It has been growing in size but patient is asymptomatic. EUS with biopsy is recommended and can either be done inpatient or outpatient setting. The patient at this time is unlikely a candidate for a Whipple surgery however. -skin care> rash is much improved - s/p skin biopsy pending results solar elastosis according to them is probably due to antibiotics -Off of all antibiotics -PT OT and speech re-eval again Limitations to discharge labile respiratory status with pneumonia CHF renal failure and altered mental status Has waxing and waning course, limitations are respiratory failure worsening kidney function and now the patient is on hemodialysis Spoke to the daughter again at bedside he wants to talk to his father again since he is more awake and alert now regarding his wishes Result Diagram: 02/24/19 0709 02/24/19 0709 Results 24hrs Laboratory Tests Test 02/23/19 17:43 02/23/19 20:42 02/24/19 01:10 02/24/19 01:33 Bedside Glucose 93 80 57 L 123 Test 02/24/19 01:52 02/24/19 04:46 02/24/19 05:00 02/24/19 05:12 Bedside Glucose 105 64 L 126 Blood Gas Specimen Blood arterial Source Arterial Blood 02/24/2019 4:40:40 Date Drawn AM Arterial Blood pH 7.388 (Temp corrected) Arterial Blood 47.9 H pCO2 (Temp correct) Arterial Blood pO2 72.2 L (Temp corrected) Arterial Blood 28.2 H HCO3 Arterial Blood 2.8 Base Excess Arterial Blood 94.5 L Oxygen Saturation Manuel Test ACCEPTAB Arterial Blood Gas Left Radial Puncture Site Arterial 1.0 Blood Carboxyhemog lobin Arterial Blood 0.5 Methemoglobin Blood Gas A-a O2 85.4 H Differential Oxyhemoglobin 93.1 Percent Blood Gas 37.0 Temperature Blood Gas 20.0 Respiration Rate Blood Gas Actual 22 Respiration Rate Blood Gas Modality MASK - BIPAP FiO2 30.0 Blood Gas Pressure 10 Support Blood Gas 18/8 IPAP/EPAP Ratio Blood Gas Notified MA Whom Blood Gas Notified 02/24/2019 4:55:26 Time AM Test 02/24/19 05:29 02/24/19 07:09 02/24/19 07:55 02/24/19 11:49 Bedside Glucose 106 70 65 L White Blood Count 8.2 Red Blood Count 2.62 L Hemoglobin 7.5 L Hematocrit 24.9 L Mean Corpuscular 95.0 Volume Mean Corpuscular 28.6 L Hemoglobin Mean Corpuscular 30.1 L Hemoglobin Concent Red Cell 21.0 H Distribution Width Platelet Count 141 Mean Platelet 13.1 H Volume Immature 0.500 H Granulocytes % Neutrophils % 77.0 Lymphocytes % 16.6 Monocytes % 5.9 Eosinophils % 0.0 Basophils % 0.0 Nucleated Red 1.3 H Blood Cells % Immature 0.040 H Granulocytes # Neutrophils # 6.3 Lymphocytes # 1.4 Monocytes # 0.5 Eosinophils # 0.0 Basophils # 0.0 Nucleated Red 0.1 H Blood Cells # Sodium Level 146 H Potassium Level 3.9 Chloride Level 113 H Carbon Dioxide 25 Level Anion Gap 8 Blood Urea 85 H Nitrogen Creatinine 1.29 H Est Glomerular Filtrat Rate mL/min Glucose Level 57 #L Calcium Level 8.1 L Subjective 24 Hr Interval Summary Free Text/Dictation sp HD yesterday Good UOP Breathing improved on nasal cannula Goal of care was again changed to full code last night however daughter is still reconsidering given quality of life Exam/Review of Systems Exam Vitals Vital Signs Date Temp Pulse Resp B/P (MAP) Pulse Ox O2 O2 Flow FiO2 Time Delivery Rate 02/24/19 50 12:28 02/24/19 96 3.0 12:15 02/24/19 65 18 126/61 11:21 (82) 02/24/19 97.9 03:27 02/23/19 BIPAP 16:38 Intake and Output 02/23/19 02/23/19 02/24/19 1515:00 23:00 07:00 IntakeIntake Total 920 ml OutputOutput Total 3050 ml 650 ml BalanceBalance -2130 ml -650 ml Exam Constitutional: alert, following more commands Head: normocephalic Eyes: nl conjunctiva Neck: supple Respiratory: crackles/rales, diminished breath sounds Cardiovascular: regular rate and rhythm Gastrointestinal: soft Genitourinary - Male: other (rinaldi) Results Results 24hrs Laboratory Tests Test 02/23/19 17:43 02/23/19 20:42 02/24/19 01:10 02/24/19 01:33 Bedside Glucose 93 80 57 L 123 Test 02/24/19 01:52 02/24/19 04:46 02/24/19 05:00 02/24/19 05:12 Bedside Glucose 105 64 L 126 Blood Gas Specimen Blood arterial Source Arterial Blood 02/24/2019 4:40:40 Date Drawn AM Arterial Blood pH 7.388 (Temp corrected) Arterial Blood 47.9 H pCO2 (Temp correct) Arterial Blood pO2 72.2 L (Temp corrected) Arterial Blood 28.2 H HCO3 Arterial Blood 2.8 Base Excess Arterial Blood 94.5 L Oxygen Saturation Manuel Test ACCEPTAB Arterial Blood Gas Left Radial Puncture Site Arterial 1.0 Blood Carboxyhemog lobin Arterial Blood 0.5 Methemoglobin Blood Gas A-a O2 85.4 H Differential Oxyhemoglobin 93.1 Percent Blood Gas 37.0 Temperature Blood Gas 20.0 Respiration Rate Blood Gas Actual 22 Respiration Rate Blood Gas Modality MASK - BIPAP FiO2 30.0 Blood Gas Pressure 10 Support Blood Gas 18/8 IPAP/EPAP Ratio Blood Gas Notified MA Whom Blood Gas Notified 02/24/2019 4:55:26 Time AM Test 02/24/19 05:29 02/24/19 07:09 02/24/19 07:55 02/24/19 11:49 Bedside Glucose 106 70 65 L White Blood Count 8.2 Red Blood Count 2.62 L Hemoglobin 7.5 L Hematocrit 24.9 L Mean Corpuscular 95.0 Volume Mean Corpuscular 28.6 L Hemoglobin Mean Corpuscular 30.1 L Hemoglobin Concent Red Cell 21.0 H Distribution Width Platelet Count 141 Mean Platelet 13.1 H Volume Immature 0.500 H Granulocytes % Neutrophils % 77.0 Lymphocytes % 16.6 Monocytes % 5.9 Eosinophils % 0.0 Basophils % 0.0 Nucleated Red 1.3 H Blood Cells % Immature 0.040 H Granulocytes # Neutrophils # 6.3 Lymphocytes # 1.4 Monocytes # 0.5 Eosinophils # 0.0 Basophils # 0.0 Nucleated Red 0.1 H Blood Cells # Sodium Level 146 H Potassium Level 3.9 Chloride Level 113 H Carbon Dioxide 25 Level Anion Gap 8 Blood Urea 85 H Nitrogen Creatinine 1.29 H Est Glomerular Filtrat Rate mL/min Glucose Level 57 #L Calcium Level 8.1 L Medications Medication Current Medications Acetaminophen (Tylenol Tab) 650 mg Q4H PRN PO PAIN Last administered on 02/11/19at 21:29; Admin Dose 650 MG; Start 01/17/19 at 18:17 Miscellaneous Information (Pending Santyl Order For Wound Care) This patient ramirez... PRN PRN XX WOUND CARE; Start 01/17/19 at 18:17 Albuterol/ Ipratropium (Duoneb) 3 ml Q2H RESP THERAPY PRN HHN SHORTNESS OF BREATH Last administered on 02/13/19at 05:52; Admin Dose 3 ML; Start 01/17/19 at 18:17 Bisacodyl (Dulcolax) 10 mg BID PRN PO CONSTIPATION; Start 01/17/19 at 18:17; Status Hold Folic Acid (Folic Acid) 1 mg DAILY PO Last administered on 02/24/19at 09:21; Admin Dose 1 MG; Start 01/17/19 at 18:17 Latanoprost (Xalatan) 1 drop HS BOTH EYES Last administered on 02/23/19at 22:47; Admin Dose 1 DROP; Start 01/17/19 at 18:17 Nitroglycerin (Nitroglycerin (Sl Tab) 0.4 Mg) 0.4 tab Q5M PRN SL CHEST PAIN; Start 01/17/19 at 18:17 IV Flush (NS 3 ml) 3 ml PER PROTOCOL IV ; Start 01/17/19 at 18:17 Glucose (Glutose) 15 gm Q15M PRN PO DECREASED GLUCOSE; Start 01/17/19 at 18:17 Glucose (Glutose) 22.5 gm Q15M PRN PO DECREASED GLUCOSE; Start 01/17/19 at 18:17 Dextrose (D50w Syringe) 25 ml Q15M PRN IV DECREASED GLUCOSE Last administered on 02/24/19at 04:55; Admin Dose 25 ML; Start 01/17/19 at 18:17 Dextrose (D50w Syringe) 50 ml Q15M PRN IV DECREASED GLUCOSE; Start 01/17/19 at 18:17 Glucagon (Glucagen) 1 mg Q15M PRN IM DECREASED GLUCOSE Last administered on 02/11/19at 17:55; Admin Dose 1 MG; Start 01/17/19 at 18:17 Glucose (Glutose) 15 gm Q15M PRN BUCCAL DECREASED GLUCOSE; Start 01/17/19 at 18:17 Bisacodyl (Dulcolax Supp) 10 mg DAILY PRN [place] CONSTIPATION; Start 01/17/19 at 18:17 Zinc Acetate/ Diphenhydramine (Benadryl 2% Cr) 1 applic Q6H PRN TOP ITCHING Last administered on 02/21/19 20:38; Admin Dose 1 APPLIC; Start 01/19/19 at 16:37 IV Flush (NS 10 ml) 10 ml PRN PRN IV IV PROTOCOL; Start 01/20/19 at 14:30 Cyanocobalamin (Vitamin B12 Inj) 1,000 mcg Q7D IM Last administered on 02/24/19 09:21; Admin Dose 1,000 MCG; Start 02/03/19 at 09:00 Metoprolol Tartrate (Lopressor) 5 mg Q4H PRN IV HR>110 Hold SBP<100; Start 01/26/19 at 14:30 Enoxaparin Sodium (Lovenox) 60 mg DAILY SC Last administered on 02/03/19 08:06; Admin Dose 60 MG; Start 01/28/19 at 09:00; Status Hold Docusate Sodium (Colace Liquid Cup) 100 mg BID NGT ; Start 01/27/19 at 22:00; Status Hold Terazosin HCl (Hytrin) 10 mg HS NGT Last administered on 02/23/19 22:47; Admin Dose 10 MG; Start 01/28/19 at 21:00 Levothyroxine Sodium (Synthroid) 125 mcg BEFORE BREAKFAST NGT Last administered on 02/24/19 06:17; Admin Dose 125 MCG; Start 01/28/19 at 07:00 Ferrous Sulfate (Feosol Liquid Cup) 300 mg WITH MEALS GTB Last administered on 02/24/19 12:08; Admin Dose 300 MG; Start 01/28/19 at 11:30 Multivitamins (Multivitamin) 30 ml DAILY GTB Last administered on 02/24/19 09:22; Admin Dose 30 ML; Start 01/28/19 at 11:00 Nystatin/ Triamcinolone Acetonide (Mycolog Oint) 1 applic BID TOP Last administered on 02/24/19 09:23; Admin Dose 1 APPLIC; Start 01/28/19 at 22:30 Insulin Aspart (Novolog Insulin Pen) NOVOLOG *MILD* ALGORI... Q4 SC Last administered on 02/23/19 12:30; Admin Dose 1 UNIT; Start 01/29/19 at 05:00 Albuterol/ Ipratropium (Duoneb) 3 ml Q6HWA RESP THERAPY HHN Last administered on 02/24/19 08:16; Admin Dose 3 ML; Start 01/29/19 at 14:00 Epoetin Dae-epbx (RETACRIT(non-esrd)) 40,000 unit Mo@1700 SC Last administered on 02/17/19 17:18; Admin Dose 40,000 UNIT; Start 02/03/19 at 17:00 Eye Lubricant (Refresh Plus) 1 drop QID BOTH EYES Last administered on 02/24/19 12:08; Admin Dose 1 DROP; Start 02/06/19 at 09:00 Eye Lubricant (Akwa Oint) 1 applic HS LEFT EYE Last administered on 02/23/19 22:47; Admin Dose 1 APPLIC; Start 02/06/19 at 21:00 Multi-Ingredient Ointment (Aquaphor Oint 52.5 Gm) 1 applic BID TOP Last administered on 02/24/19 09:23; Admin Dose 1 APPLIC; Start 02/06/19 at 22:40 Morphine Sulfate (morphine) 0.25 mg Q4H PRN IV SEVERE PAIN LEVEL 7-10 Last administered on 02/21/19 06:06; Admin Dose 0.25 MG; Start 02/15/19 at 11:00 Methylprednisolone Sodium Succinate (Solu-Medrol) 40 mg DAILY IV Last administered on 02/24/19 09:21; Admin Dose 40 MG; Start 02/21/19 at 09:00 Furosemide (Lasix) 40 mg DAILY IV Last administered on 02/24/19 09:21; Admin Dose 40 MG; Start 02/22/19 at 09:00 Lansoprazole (Prevacid) 30 mg BID@0600,1800 NGT Last administered on 02/24/19 05:04; Admin Dose 30 MG; Start 02/21/19 at 18:00 IV Flush (NS 10 ml) 10 ml PRN PRN IV IV PROTOCOL; Start 02/21/19 at 21:00 Dextrose 1,000 ml @ 60 mls/hr [id number] IV Last administered on 02/24/19 11:11; Admin Dose 60 MLS/HR; Start 02/24/19 at 11:00 IVAN AKHTAR MD Feb 24, 2019 13:18
[2019-02-24] MEDS ORDERED: ALBUMIN HUMAN 25% 100 ML IV PRN (14:00)
[2019-02-24] MEDS ORDERED: MANNITOL 20% 250 ML IV ONE ×2 (14:00→14:30)
--- NOTE | 2019-02-24 14:31 | CONS ---
Assessment/Plan Assessment/Plan Hospital Course (Demo Recall) No events, looks comfortable, no fevers Antimicrobials: none Indwelling: PICC Wade catheter, NG tube, right femoral Yogesh Allergy: Penicillin, sulfa Physical examination: Obese well-developed chronically ill-appearing - [place] man who is lethargic, in no distress. Head atraumatic normocephalic sclera nonicteric. Neck is supple chest rise symmetrical breath sounds diminished bases. Heart: S1-S2. Abdomen obese soft bowel sounds present extremities without cyanosis, bilateral edema Assessment: 1. S/p sepsis with shock 2. Acute hypoxemic respiratory failure, likely ongoing aspiration 2. Acute encephalopathy 3. S/p seizures 4. S/p Healthcare acquired pneumonia==> treated 5. Coronary artery disease/history of CABG 6. Advanced rheumatoid arthritis 5. Chronic atrial fibrillation 6. Diabetes 7. BPH 9. Acute on chronic anemia===> s/p EGD/colonoscopy 01/09/19 10. Status post right epididymitis 11. Pancreatic lesion per CT, unlikely neoplasm per oncology notes 12. 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 Skin lesions, s/p punch bx, pathology consistent with allergic reaction 14. Acute renal failure 15. DNR/DNI Plan: Remains unchanged, off antibiotics, continue present care, repeat cx's prn, hemodialysis per renal Consultation Date/Type/Reason Admit Date/Time Jan 17, 2019 at 15:58 Initial Consult Date 01/18/19 Type of Consult id Requesting Provider: IVAN AKHTAR MD Date/Time of Note DATE: 02/24/19 TIME: 14:30 Exam/Review of Systems Exam Vitals Vital Signs Date Temp Pulse Resp B/P (MAP) Pulse Ox O2 O2 Flow FiO2 Time Delivery Rate 02/24/19 50 12:28 02/24/19 96 3.0 12:15 02/24/19 73 12:01 02/24/19 18 126/61 11:21 (82) 02/24/19 97.9 03:27 02/23/19 BIPAP 16:38 Intake and Output 02/23/19 02/23/19 02/24/19 1515:00 23:00 07:00 IntakeIntake Total 920 ml OutputOutput Total 3050 ml 650 ml BalanceBalance -2130 ml -650 ml Results Result Diagram: 02/24/19 0709 02/24/19 0709 Results 24hrs Laboratory Tests Test 02/23/19 17:43 02/23/19 20:42 02/24/19 01:10 02/24/19 01:33 Bedside Glucose 93 80 57 L 123 Test 02/24/19 01:52 02/24/19 04:46 02/24/19 05:00 02/24/19 05:12 Bedside Glucose 105 64 L 126 Blood Gas Specimen Blood arterial Source Arterial Blood 02/24/2019 4:40:40 Date Drawn AM Arterial Blood pH 7.388 (Temp corrected) Arterial Blood 47.9 H pCO2 (Temp correct) Arterial Blood pO2 72.2 L (Temp corrected) Arterial Blood 28.2 H HCO3 Arterial Blood 2.8 Base Excess Arterial Blood 94.5 L Oxygen Saturation Manuel Test ACCEPTAB Arterial Blood Gas Left Radial Puncture Site Arterial 1.0 Blood Carboxyhemog lobin Arterial Blood 0.5 Methemoglobin Blood Gas A-a O2 85.4 H Differential Oxyhemoglobin 93.1 Percent Blood Gas 37.0 Temperature Blood Gas 20.0 Respiration Rate Blood Gas Actual 22 Respiration Rate Blood Gas Modality MASK - BIPAP FiO2 30.0 Blood Gas Pressure 10 Support Blood Gas 18/8 IPAP/EPAP Ratio Blood Gas Notified MA Whom Blood Gas Notified 02/24/2019 4:55:26 Time AM Test 02/24/19 05:29 02/24/19 07:09 02/24/19 07:55 02/24/19 11:49 Bedside Glucose 106 70 65 L White Blood Count 8.2 Red Blood Count 2.62 L Hemoglobin 7.5 L Hematocrit 24.9 L Mean Corpuscular 95.0 Volume Mean Corpuscular 28.6 L Hemoglobin Mean Corpuscular 30.1 L Hemoglobin Concent Red Cell 21.0 H Distribution Width Platelet Count 141 Mean Platelet 13.1 H Volume Immature 0.500 H Granulocytes % Neutrophils % 77.0 Lymphocytes % 16.6 Monocytes % 5.9 Eosinophils % 0.0 Basophils % 0.0 Nucleated Red 1.3 H Blood Cells % Immature 0.040 H Granulocytes # Neutrophils # 6.3 Lymphocytes # 1.4 Monocytes # 0.5 Eosinophils # 0.0 Basophils # 0.0 Nucleated Red 0.1 H Blood Cells # Sodium Level 146 H Potassium Level 3.9 Chloride Level 113 H Carbon Dioxide 25 Level Anion Gap 8 Blood Urea 85 H Nitrogen Creatinine 1.29 H Est Glomerular Filtrat Rate mL/min Glucose Level 57 #L Calcium Level 8.1 L Medications Medication Current Medications Acetaminophen (Tylenol Tab) 650 mg Q4H PRN PO PAIN Last administered on 02/11/19at 21:29; Admin Dose 650 MG; Start 01/17/19 at 18:17 Miscellaneous Information (Pending Santyl Order For Wound Care) This patient ramirez... PRN PRN XX WOUND CARE; Start 01/17/19 at 18:17 Albuterol/ Ipratropium (Duoneb) 3 ml Q2H RESP THERAPY PRN HHN SHORTNESS OF BREATH Last administered on 02/13/19 05:52; Admin Dose 3 ML; Start 01/17/19 at 18:17 Bisacodyl (Dulcolax) 10 mg BID PRN PO CONSTIPATION; Start 01/17/19 at 18:17; Status Hold Folic Acid (Folic Acid) 1 mg DAILY PO Last administered on 02/24/19 09:21; Admin Dose 1 MG; Start 01/17/19 at 18:17 Latanoprost (Xalatan) 1 drop HS BOTH EYES Last administered on 02/23/19 22:47; Admin Dose 1 DROP; Start 01/17/19 at 18:17 Nitroglycerin (Nitroglycerin (Sl Tab) 0.4 Mg) 0.4 tab Q5M PRN SL CHEST PAIN; Start 01/17/19 at 18:17 IV Flush (NS 3 ml) 3 ml PER PROTOCOL IV ; Start 01/17/19 at 18:17 Glucose (Glutose) 15 gm Q15M PRN PO DECREASED GLUCOSE; Start 01/17/19 at 18:17 Glucose (Glutose) 22.5 gm Q15M PRN PO DECREASED GLUCOSE; Start 01/17/19 at 18:17 Dextrose (D50w Syringe) 25 ml Q15M PRN IV DECREASED GLUCOSE Last administered on 02/24/19 04:55; Admin Dose 25 ML; Start 01/17/19 at 18:17 Dextrose (D50w Syringe) 50 ml Q15M PRN IV DECREASED GLUCOSE; Start 01/17/19 at 18:17 Glucagon (Glucagen) 1 mg Q15M PRN IM DECREASED GLUCOSE Last administered on 02/11/19at 17:55; Admin Dose 1 MG; Start 01/17/19 at 18:17 Glucose (Glutose) 15 gm Q15M PRN BUCCAL DECREASED GLUCOSE; Start 01/17/19 at 18:17 Bisacodyl (Dulcolax Supp) 10 mg DAILY PRN [place] CONSTIPATION; Start 01/17/19 at 18:17 Zinc Acetate/ Diphenhydramine (Benadryl 2% Cr) 1 applic Q6H PRN TOP ITCHING Last administered on 02/21/19at 20:38; Admin Dose 1 APPLIC; Start 01/19/19 at 1 6:37 IV Flush (NS 10 ml) 10 ml PRN PRN IV IV PROTOCOL; Start 01/20/19 at 14:30 Cyanocobalamin (Vitamin B12 Inj) 1,000 mcg Q7D IM Last administered on 02/24/19 09:21; Admin Dose 1,000 MCG; Start 02/03/19 at 09:00 Metoprolol Tartrate (Lopressor) 5 mg Q4H PRN IV HR>110 Hold SBP<100; Start 01/26/19 at 14:30 Enoxaparin Sodium (Lovenox) 60 mg DAILY SC Last administered on 02/03/19 08:06; Admin Dose 60 MG; Start 01/28/19 at 09:00; Status Hold Docusate Sodium (Colace Liquid Cup) 100 mg BID NGT ; Start 01/27/19 at 22:00; Status Hold Terazosin HCl (Hytrin) 10 mg HS NGT Last administered on 02/23/19at 22:47; Admin Dose 10 MG; Start 01/28/19 at 21:00 Levothyroxine Sodium (Synthroid) 125 mcg BEFORE BREAKFAST NGT Last administered on 02/24/19 06:17; Admin Dose 125 MCG; Start 01/28/19 at 07:00 Ferrous Sulfate (Feosol Liquid Cup) 300 mg WITH MEALS GTB Last administered on 02/24/19 12:08; Admin Dose 300 MG; Start 01/28/19 at 11:30 Multivitamins (Multivitamin) 30 ml DAILY GTB Last administered on 02/24/19 09:22; Admin Dose 30 ML; Start 01/28/19 at 11:00 Nystatin/ Triamcinolone Acetonide (Mycolog Oint) 1 applic BID TOP Last administered on 02/24/19 09:23; Admin Dose 1 APPLIC; Start 01/28/19 at 22:30 Insulin Aspart (Novolog Insulin Pen) NOVOLOG *MILD* ALGORI... Q4 SC Last administered on 02/23/19 12:30; Admin Dose 1 UNIT; Start 01/29/19 at 05:00 Albuterol/ Ipratropium (Duoneb) 3 ml Q6HWA RESP THERAPY HHN Last administered on 02/24/19 13:37; Admin Dose 3 ML; Start 01/29/19 at 14:00 Epoetin Dae-epbx (RETACRIT(non-esrd)) 40,000 unit Mo@1700 SC Last administered on 02/17/19 17:18; Admin Dose 40,000 UNIT; Start 02/03/19 at 17:00 Eye Lubricant (Refresh Plus) 1 drop QID BOTH EYES Last administered on 02/24/19 12:08; Admin Dose 1 DROP; Start 02/06/19 at 09:00 Eye Lubricant (Akwa Oint) 1 applic HS LEFT EYE Last administered on 02/23/19 22:47; Admin Dose 1 APPLIC; Start 02/06/19 at 21:00 Multi-Ingredient Ointment (Aquaphor Oint 52.5 Gm) 1 applic BID TOP Last administered on 02/24/19 09:23; Admin Dose 1 APPLIC; Start 02/06/19 at 22:40 Morphine Sulfate (morphine) 0.25 mg Q4H PRN IV SEVERE PAIN LEVEL 7-10 Last administered on 02/21/19 06:06; Admin Dose 0.25 MG; Start 02/15/19 at 11:00 Methylprednisolone Sodium Succinate (Solu-Medrol) 40 mg DAILY IV Last administered on 02/24/19 09:21; Admin Dose 40 MG; Start 02/21/19 at 09:00 Furosemide (Lasix) 40 mg DAILY IV Last administered on 02/24/19 09:21; Admin Dose 40 MG; Start 02/22/19 at 09:00 Lansoprazole (Prevacid) 30 mg BID@0600,1800 NGT Last administered on 02/24/19 05:04; Admin Dose 30 MG; Start 02/21/19 at 18:00 IV Flush (NS 10 ml) 10 ml PRN PRN IV IV PROTOCOL; Start 02/21/19 at 21:00 Dextrose 1,000 ml @ 40 mls/hr Q24H IV Last administered on 02/24/19at 11:11; Admin Dose 60 MLS/HR; Start 02/24/19 at 11:00 Albumin Human 100 ml @ 100 mls/hr WITH DIALYSIS PRN IV SBP <90 DURING DIALYSIS; Start 02/24/19 at 14:00 Mannitol 250 ml @ 0 mls/hr WITH DIALYSIS ONCE IV ; Start 02/24/19 at 14:30; Stop 02/24/19 at 14:31 LUCIAN HARKINS NP Feb 24, 2019 14:31
--- NOTE | 2019-02-24 15:23 | CONS ---
Assessment/Plan Assessment/Plan Assessment/Plan (Recall) 88 yo M with multiple comorbidities who initially presented for evaluation of hiccups. He was noted to become acutely altered... for which neurology is consulted. He has been transferred to the ICU on several occasions due to ams in the context of respiratory distress and ? seizures.. On 02/14, he was transferred to the ICU for hypotension. The clinical picture suggests an acute toxic-metabolic encephalopathy.. Meningoencephalitis is, though, not entirely excluded. MRI brain is without acute ischemia, though notable for chronic infarcts. EEG was without ongoing epileptiform activity LP for CSF valuation was declined by medical decision makers. P: OK to Cont Keppra 500 BID for now Ativan IV PRN prolonged seizure (> 5 min) Agree w/ ASA/Lipitor daily pending the above Limit sedating medications where possible Other medical management per primary Will follow clinically Consultation Date/Type/Reason Admit Date/Time Jan 17, 2019 at 15:58 Type of Consult Neurology Requesting Provider: IVAN AKHTAR MD Date/Time of Note DATE: 02/24/19 TIME: 15:23 24 HR Interval Summary Free Text/Dictation Continues acute care. Exam/Review of Systems Exam Vitals Vital Signs Date Temp Pulse Resp B/P (MAP) Pulse Ox O2 O2 Flow FiO2 Time Delivery Rate 02/24/19 95 3.0 13:39 02/24/19 50 12:28 02/24/19 73 12:01 02/24/19 18 126/61 11:21 (82) 02/24/19 97.9 03:27 02/23/19 BIPAP 16:38 Intake and Output 02/23/19 02/23/19 02/24/19 1515:00 23:00 07:00 IntakeIntake Total 920 ml OutputOutput Total 3050 ml 650 ml BalanceBalance -2130 ml -650 ml Exam PE: Gen Appearance: No Apparent Distress HEENT: Normocephalic; on hi flow nasal cannula Cardiovascular: Regular rate Abdomen: Soft Extremities: Dry. NE: The patient was obtunded and nonverbal. Opens eyes briefly to voice. Cranial nerve examination was limited by mental status. Pupils were equal and reactive to light. There was no afferent pupillary defect. Funduscopic examination was limited. Face was grossly symmetric. Tone was normal. Muscle bulk was normal. I did not see fasciculations. The patient withdrew his extremities to noxious stimuli. Coordination and gait testing was limited by mental status. Arm and leg reflexes were within normal limits and symmetric. Gray's sign was absent. Plantar responses were flexor. Results Result Diagram: 02/24/19 0709 02/24/19 0709 Results 24hrs Laboratory Tests Test 02/23/19 17:43 02/23/19 20:42 02/24/19 01:10 02/24/19 01:33 Bedside Glucose 93 80 57 L 123 Test 02/24/19 01:52 02/24/19 04:46 02/24/19 05:00 02/24/19 05:12 Bedside Glucose 105 64 L 126 Blood Gas Specimen Blood arterial Source Arterial Blood 02/24/2019 4:40:40 Date Drawn AM Arterial Blood pH 7.388 (Temp corrected) Arterial Blood 47.9 H pCO2 (Temp correct) Arterial Blood pO2 72.2 L (Temp corrected) Arterial Blood 28.2 H HCO3 Arterial Blood 2.8 Base Excess Arterial Blood 94.5 L Oxygen Saturation Manuel Test ACCEPTAB Arterial Blood Gas Left Radial Puncture Site Arterial 1.0 Blood Carboxyhemog lobin Arterial Blood 0.5 Methemoglobin Blood Gas A-a O2 85.4 H Differential Oxyhemoglobin 93.1 Percent Blood Gas 37.0 Temperature Blood Gas 20.0 Respiration Rate Blood Gas Actual 22 Respiration Rate Blood Gas Modality MASK - BIPAP FiO2 30.0 Blood Gas Pressure 10 Support Blood Gas 18/8 IPAP/EPAP Ratio Blood Gas Notified MA Whom Blood Gas Notified 02/24/2019 4:55:26 Time AM Test 02/24/19 05:29 02/24/19 07:09 02/24/19 07:55 02/24/19 11:49 Bedside Glucose 106 70 65 L White Blood Count 8.2 Red Blood Count 2.62 L Hemoglobin 7.5 L Hematocrit 24.9 L Mean Corpuscular 95.0 Volume Mean Corpuscular 28.6 L Hemoglobin Mean Corpuscular 30.1 L Hemoglobin Concent Red Cell 21.0 H Distribution Width Platelet Count 141 Mean Platelet 13.1 H Volume Immature 0.500 H Granulocytes % Neutrophils % 77.0 Lymphocytes % 16.6 Monocytes % 5.9 Eosinophils % 0.0 Basophils % 0.0 Nucleated Red 1.3 H Blood Cells % Immature 0.040 H Granulocytes # Neutrophils # 6.3 Lymphocytes # 1.4 Monocytes # 0.5 Eosinophils # 0.0 Basophils # 0.0 Nucleated Red 0.1 H Blood Cells # Sodium Level 146 H Potassium Level 3.9 Chloride Level 113 H Carbon Dioxide 25 Level Anion Gap 8 Blood Urea 85 H Nitrogen Creatinine 1.29 H Est Glomerular Filtrat Rate mL/min Glucose Level 57 #L Calcium Level 8.1 L Medications Medication Current Medications Acetaminophen (Tylenol Tab) 650 mg Q4H PRN PO PAIN Last administered on 02/11/19at 21:29; Admin Dose 650 MG; Start 01/17/19 at 18:17 Miscellaneous Information ([facility] This patient ramirez... PRN PRN XX WOUND CARE; Start 01/17/19 at 18:17 Albuterol/ Ipratropium (Duoneb) 3 ml Q2H RESP THERAPY PRN HHN SHORTNESS OF BREATH Last administered on 02/13/19 05:52; Admin Dose 3 ML; Start 01/17/19 at 18:17 Bisacodyl (Dulcolax) 10 mg BID PRN PO CONSTIPATION; Start 01/17/19 at 18:17; Status Hold Folic Acid (Folic Acid) 1 mg DAILY PO Last administered on 02/24/19 09:21; Admin Dose 1 MG; Start 01/17/19 at 18:17 Latanoprost (Xalatan) 1 drop HS BOTH EYES Last administered on 02/23/19 22:47; Admin Dose 1 DROP; Start 01/17/19 at 18:17 Nitroglycerin (Nitroglycerin (Sl Tab) 0.4 Mg) 0.4 tab Q5M PRN SL CHEST PAIN; Start 01/17/19 at 18:17 IV Flush (NS 3 ml) 3 ml PER PROTOCOL IV ; Start 01/17/19 at 18:17 Glucose (Glutose) 15 gm Q15M PRN PO DECREASED GLUCOSE; Start 01/17/19 at 18:17 Glucose (Glutose) 22.5 gm Q15M PRN PO DECREASED GLUCOSE; Start 01/17/19 at 18:17 Dextrose (D50w Syringe) 25 ml Q15M PRN IV DECREASED GLUCOSE Last administered on 02/24/19 04:55; Admin Dose 25 ML; Start 01/17/19 at 18:17 Dextrose (D50w Syringe) 50 ml Q15M PRN IV DECREASED GLUCOSE; Start 01/17/19 at 18:17 Glucagon (Glucagen) 1 mg Q15M PRN IM DECREASED GLUCOSE Last administered on 02/11/19at 17:55; Admin Dose 1 MG; Start 01/17/19 at 18:17 Glucose (Glutose) 15 gm Q15M PRN BUCCAL DECREASED GLUCOSE; Start 01/17/19 at 18:17 Bisacodyl (Dulcolax Supp) 10 mg DAILY PRN NC CONSTIPATION; Start 01/17/19 at 18:17 Zinc Acetate/ Diphenhydramine (Benadryl 2% Cr) 1 applic Q6H PRN TOP ITCHING Last administered on 02/21/19at 20:38; Admin Dose 1 APPLIC; Start 01/19/19 at 16:37 IV Flush (NS 10 ml) 10 ml PRN PRN IV IV PROTOCOL; Start 01/20/19 at 14:30 Cyanocobalamin (Vitamin B12 Inj) 1,000 mcg Q7D IM Last administered on 02/24/19at 09:21; Admin Dose 1,000 MCG; Start 02/03/19 at 09:00 Metoprolol Tartrate (Lopressor) 5 mg Q4H PRN IV HR>110 Hold SBP<100; Start 01/26/19 at 14:30 Enoxaparin Sodium (Lovenox) 60 mg DAILY SC Last administered on 02/03/19at 08:06; Admin Dose 60 MG; Start 01/28/19 at 09:00; Status Hold Docusate Sodium (Colace Liquid Cup) 100 mg BID NGT ; Start 01/27/19 at 22:00; Status Hold Terazosin HCl (Hytrin) 10 mg HS NGT Last administered on 02/23/19at 22:47; Admin Dose 10 MG; Start 01/28/19 at 21:00 Levothyroxine Sodium (Synthroid) 125 mcg BEFORE BREAKFAST NGT Last administered on 02/24/19at 06:17; Admin Dose 125 MCG; Start 01/28/19 at 07:00 Ferrous Sulfate (Feosol Liquid Cup) 300 mg WITH MEALS GTB Last administered on 02/24/19at 12:08; Admin Dose 300 MG; Start 01/28/19 at 11:30 Multivitamins (Multivitamin) 30 ml DAILY GTB Last administered on 02/24/19 09:22; Admin Dose 30 ML; Start 01/28/19 at 11:00 Nystatin/ Triamcinolone Acetonide (Mycolog Oint) 1 applic BID TOP Last administered on 02/24/19 09:23; Admin Dose 1 APPLIC; Start 01/28/19 at 22:30 Insulin Aspart (Novolog Insulin Pen) NOVOLOG *MILD* ALGORI... Q4 SC Last administered on 02/23/19 12:30; Admin Dose 1 UNIT; Start 01/29/19 at 05:00 Albuterol/ Ipratropium (Duoneb) 3 ml Q6HWA RESP THERAPY HHN Last administered on 02/24/19 13:37; Admin Dose 3 ML; Start 01/29/19 at 14:00 Epoetin Dae-epbx (RETACRIT(non-esrd)) 40,000 unit Mo@1700 SC Last administered on 02/17/19 17:18; Admin Dose 40,000 UNIT; Start 02/03/19 at 17:00 Eye Lubricant (Refresh Plus) 1 drop QID BOTH EYES Last administered on 02/24/19 12:08; Admin Dose 1 DROP; Start 02/06/19 at 09:00 Eye Lubricant (Akwa Oint) 1 applic HS LEFT EYE Last administered on 02/23/19 22:47; Admin Dose 1 APPLIC; Start 02/06/19 at 21:00 Multi-Ingredient Ointment (Aquaphor Oint 52.5 Gm) 1 applic BID TOP Last administered on 02/24/19 09:23; Admin Dose 1 APPLIC; Start 02/06/19 at 22:40 Morphine Sulfate (morphine) 0.25 mg Q4H PRN IV SEVERE PAIN LEVEL 7-10 Last administered on 02/21/19 06:06; Admin Dose 0.25 MG; Start 02/15/19 at 11:00 Methylprednisolone Sodium Succinate (Solu-Medrol) 40 mg DAILY IV Last administered on 02/24/19 09:21; Admin Dose 40 MG; Start 02/21/19 at 09:00 Furosemide (Lasix) 40 mg DAILY IV Last administered on 02/24/19 09:21; Admin Dose 40 MG; Start 02/22/19 at 09:00 Lansoprazole (Prevacid) 30 mg BID@0600,1800 NGT Last administered on 02/24/19at 05:04; Admin Dose 30 MG; Start 02/21/19 at 18:00 IV Flush (NS 10 ml) 10 ml PRN PRN IV IV PROTOCOL; Start 02/21/19 at 21:00 Dextrose 1,000 ml @ 40 mls/hr Q24H IV Last administered on 02/24/19at 11:11; Admin Dose 60 MLS/HR; Start 02/24/19 at 11:00 Albumin Human 100 ml @ 100 mls/hr WITH DIALYSIS PRN IV SBP <90 DURING DIALYSIS; Start 02/24/19 at 14:00 Heparin Sodium (Porcine) (Heparin (1000 Units/ml)) 2,800 unit AFTER DIALYSIS PRN CATHETER Dialysis catheter; Start 02/24/19 at 15:00 NEGRA CORONA NP Feb 24, 2019 15:23
[2019-02-24] MEDS: HEPARIN 1000 UNITS/ML 10 ML INJ CATHETER PRN (16:11)
[2019-02-24] MEDS: EPOETIN ALFA-EPBX (NON-ESRD 10,000 UNIT/ML VIAL SC SCH (17:37)
[2019-02-24] MEDS: TERAZOSIN 5 MG CAP NGT SCH (21:17)
[2019-02-24] MEDS: OCULAR LUBRICANT 3.5 GM OPH OINT LEFT EYE SCH (21:17)
[2019-02-24] MEDS: LATANOPROST 0.005% 2.5 ML OPH BOTH EYES SCH (21:21)
[2019-02-25] VITALS (22 sets, daily range): BP systolic 77–140; BP diastolic 43–64; PULSE 58–90; RESP 19–20
[2019-02-25] MEDS: INSULIN ASPART [NOVOLOG] 3 ML PEN SC SCH ×6 (01:00→21:00)
[2019-02-25] MEDS: LANSOPRAZOLE 30 MG CAP NGT SCH ×2 (05:19→17:09)
[2019-02-25] MEDS: LEVOTHYROXINE 125 MCG TAB NGT SCH (05:19)
[2019-02-25] MEDS: ALBUTEROL/IPRATROPIUM (NEB) 3 ML AMP HHN SCH ×3 (07:40→19:34)
--- NOTE | 2019-02-25 07:48 | CONS ---
Assessment/Plan Assessment/Plan Hospital Course (Demo Recall) 88 [facility] and febrile 1. Severe anemia likely due to chronic disease -s/p EGD and colonoscopy by Dr Frost 01/09/19 which didn't find an obvious GI etiology to explain anemia. AVM or a small lesion could be missed due to poor prep. Pt likely needs capsule endoscopy 2. Cystic lesion along pancreas body - 4.3 cm cystic lesion along the pancreas body, enlarged since 10/10/2012 (previously 2.4 cm). 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 -CEA, CA 19-9 wnl 3. Severe gastritis 4. Hemorrhoids 5. Hital hernia 6. A fib, -eliquis was stopped 01/06 during previous admission, on ASA 7. COPD 8. HTN 9. Hypothyroidism 10. Bilateral groin cellulitis 11. Rheumatoid arthritis. 12. Diabetes mellitus. 13. Peripheral vascular disease. 14. CHF 15. 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 Sepsis secondary to pneumonia 18. Encephalopathy secondary to sepsis 19. Hypothermia 20. Coagulopathy -INR 1.77 21. Thrombocytopenia -decreasing 23. Diarrhea -flexiseal -neg c diff 22. Positive wound culture -CORYNEBACTERIUM SPECIES Plan: PEG tomorrow if pt stable. Spoke with daughter who consents to PEG placement. Keep NPO after MN. Hold anti coagulants (lovenox has been on hold since 02/04). CBC, BMP, and INR in am. Increase IVF for hydration. Monitor blood glucose Once pt is stable we will proceed with push endoscopy Stool cultures pending Consider questran if stool cx negative and diarrhea continues Monitor HH and replace as needed Pt will need outpatient EUS to evaluate pancreatic mass Pt examined and plan of care discussed with Dr. Frost Consultation Date/Type/Reason Admit Date/Time Jan 17, 2019 at 15:58 Initial Consult Date 01/18/19 Requesting Provider: IVAN AKHTAR MD Date/Time of Note DATE: 02/25/19 TIME: 07:42 24 HR Interval Summary Free Text/Dictation Patient much more alert today. Pt pulled NGT out this am. Oriented x 2. On 4 L NC with spO2 96-98%. Diminished breath sounds at bilateral bases. HH 7.5 /25.9 today. Flexiseal has dark stool, dark green/brown vs black. Exam/Review of Systems Exam Vitals Vital Signs Date Temp Pulse Resp B/P (MAP) Pulse Ox O2 O2 Flow FiO2 Time Delivery Rate 02/25/19 97.4 89 19 111/58 96 04:00 (75) 02/24/19 Nasal 4.0 21:30 Cannula 02/24/19 28 20:15 Intake and Output 02/24/19 02/24/19 02/25/19 1515:00 23:00 07:00 IntakeIntake Total 480 ml 380 ml 610 ml OutputOutput Total 2500 ml 400 ml BalanceBalance 480 ml -2120 ml 210 ml Constitutional: alert Psych: no complaints Head: normocephalic Eyes: PERRL, other (bilateral cataracts) Respiratory: diminished breath sounds Gastrointestinal: soft, non-tender, bowel sounds Musculoskeletal: muscle weakness Neurological: other (alert and oriented x 2) Results Result Diagram: 02/24/19 0709 02/24/19 0709 Results 24hrs Laboratory Tests Test 02/24/19 07:55 02/24/19 11:49 02/24/19 16:58 02/24/19 21:33 Bedside Glucose 70 65 L 112 132 Test 02/25/19 01:02 02/25/19 04:42 Bedside Glucose 134 96 Medications Medication Current Medications Acetaminophen (Tylenol Tab) 650 mg Q4H PRN PO PAIN Last administered on 9at 21:29; Admin Dose 650 MG; Start 01/17/19 at 18:17 Miscellaneous Information (Pending [facility] Order For Wound Care) This patient ramirez... PRN PRN XX WOUND CARE; Start 01/17/19 at 18:17 Albuterol/ Ipratropium (Duoneb) 3 ml Q2H RESP THERAPY PRN HHN SHORTNESS OF BREATH Last administered on 02/13/19at 05:52; Admin Dose 3 ML; Start 01/17/19 at 18:17 Bisacodyl (Dulcolax) 10 mg BID PRN PO CONSTIPATION; Start 01/17/19 at 18:17; Status Hold Folic Acid (Folic Acid) 1 mg DAILY PO Last administered on 02/24/19at 09:21; Admin Dose 1 MG; Start 01/17/19 at 18:17 Latanoprost (Xalatan) 1 drop HS BOTH EYES Last administered on 02/24/19 21:21; Admin Dose 1 DROP; Start 01/17/19 at 18:17 Nitroglycerin (Nitroglycerin (Sl Tab) 0.4 Mg) 0.4 tab Q5M PRN SL CHEST PAIN; Start 01/17/19 at 18:17 IV Flush (NS 3 ml) 3 ml PER PROTOCOL IV ; Start 01/17/19 at 18:17 Glucose (Glutose) 15 gm Q15M PRN PO DECREASED GLUCOSE; Start 01/17/19 at 18:17 Glucose (Glutose) 22.5 gm Q15M PRN PO DECREASED GLUCOSE; Start 01/17/19 at 18:17 Dextrose (D50w Syringe) 25 ml Q15M PRN IV DECREASED GLUCOSE Last administered on 02/24/19at 04:55; Admin Dose 25 ML; Start 01/17/19 at 18:17 Dextrose (D50w Syringe) 50 ml Q15M PRN IV DECREASED GLUCOSE; Start 01/17/19 at 18:17 Glucagon (Glucagen) 1 mg Q15M PRN IM DECREASED GLUCOSE Last administered on 02/11/19at 17:55; Admin Dose 1 MG; Start 01/17/19 at 18:17 Glucose (Glutose) 15 gm Q15M PRN BUCCAL DECREASED GLUCOSE; Start 01/17/19 at 18:17 Bisacodyl (Dulcolax Supp) 10 mg DAILY PRN OR CONSTIPATION; Start 01/17/19 at 18:17 Zinc Acetate/ Diphenhydramine (Benadryl 2% Cr) 1 applic Q6H PRN TOP ITCHING Last administered on 02/21/19at 20:38; Admin Dose 1 APPLIC; Start 01/19/19 at 16:37 IV Flush (NS 10 ml) 10 ml PRN PRN IV IV PROTOCOL; Start 01/20/19 at 14:30 Cyanocobalamin (Vitamin B12 Inj) 1,000 mcg Q7D IM Last administered on 02/24/19at 09:21; Admin Dose 1,000 MCG; Start 02/03/19 at 09:00 Metoprolol Tartrate (Lopressor) 5 mg Q4H PRN IV HR>110 Hold SBP<100; Start 01/26/19 at 14:30 Enoxaparin Sodium (Lovenox) 60 mg DAILY SC Last administered on 02/03/19 08:06; Admin Dose 60 MG; Start 01/28/19 at 09:00; Status Hold Docusate Sodium (Colace Liquid Cup) 100 mg BID NGT ; Start 01/27/19 at 22:00; Status Hold Terazosin HCl (Hytrin) 10 mg HS NGT Last administered on 02/24/19 21:17; Admin Dose 10 MG; Start 01/28/19 at 21:00 Levothyroxine Sodium (Synthroid) 125 mcg BEFORE BREAKFAST NGT Last administered on 02/25/19 05:19; Admin Dose 125 MCG; Start 01/28/19 at 07:00 Ferrous Sulfate (Feosol Liquid Cup) 300 mg WITH MEALS GTB Last administered on 02/24/19 17:35; Admin Dose 300 MG; Start 01/28/19 at 11:30 Multivitamins (Multivitamin) 30 ml DAILY GTB Last administered on 02/24/19 09:22; Admin Dose 30 ML; Start 01/28/19 at 11:00 Nystatin/ Triamcinolone Acetonide (Mycolog Oint) 1 applic BID TOP Last administered on 02/24/19 21:19; Admin Dose 1 APPLIC; Start 01/28/19 at 22:30 Insulin Aspart (Novolog Insulin Pen) NOVOLOG *MILD* ALGORI... Q4 SC Last administered on 02/23/19 12:30; Admin Dose 1 UNIT; Start 01/29/19 at 05:00 Albuterol/ Ipratropium (Duoneb) 3 ml Q6HWA RESP THERAPY HHN Last administered on 02/24/19 20:13; Admin Dose 3 ML; Start 01/29/19 at 14:00 Epoetin Dae-epbx (RETACRIT(non-esrd)) 40,000 unit Mo@1700 SC Last administered on 02/24/19 17:37; Admin Dose 40,000 UNIT; Start 02/03/19 at 17:00 Eye Lubricant (Refresh Plus) 1 drop QID BOTH EYES Last administered on 02/24/19 17:38; Admin Dose 1 DROP; Start 02/06/19 at 09:00 Eye Lubricant (Akwa Oint) 1 applic HS LEFT EYE Last administered on 02/24/19 21:17; Admin Dose 1 APPLIC; Start 02/06/19 at 21:00 Multi-Ingredient Ointment (Aquaphor Oint 52.5 Gm) 1 applic BID TOP Last administered on 02/24/19 21:18; Admin Dose 1 APPLIC; Start 02/06/19 at 22:40 Morphine Sulfate (morphine) 0.25 mg Q4H PRN IV SEVERE PAIN LEVEL 7-10 Last administered on 02/21/19 06:06; Admin Dose 0.25 MG; Start 02/15/19 at 11:00 Methylprednisolone Sodium Succinate (Solu-Medrol) 40 mg DAILY IV Last administered on 02/24/19 09:21; Admin Dose 40 MG; Start 02/21/19 at 09:00 Furosemide (Lasix) 40 mg DAILY IV Last administered on 02/24/19 09:21; Admin Dose 40 MG; Start 02/22/19 at 09:00 Lansoprazole (Prevacid) 30 mg BID@0600,1800 NGT Last administered on 02/25/19 05:19; Admin Dose 30 MG; Start 02/21/19 at 18:00 IV Flush (NS 10 ml) 10 ml PRN PRN IV IV PROTOCOL; Start 02/21/19 at 21:00 Dextrose 1,000 ml @ 40 mls/hr Q24H IV Last administered on 02/24/19 11:11; Admin Dose 60 MLS/HR; Start 02/24/19 at 11:00 Albumin Human 100 ml @ 100 mls/hr WITH DIALYSIS PRN IV SBP <90 DURING DIALYSIS; Start 02/24/19 at 14:00 Heparin Sodium (Porcine) (Heparin (1000 Units/ml)) 2,800 unit AFTER DIALYSIS PRN CATHETER Dialysis catheter Last administered on 02/24/19 16:11; Admin Dose 2,800 UNIT; Start 02/24/19 at 15:00 GISELLA VENTURA Feb 25, 2019 07:48
[2019-02-25] MEDS: FERROUS SULFATE 60 MG/ML 5ML CUP GTB SCH ×3 (07:55→17:09)
[2019-02-25] MEDS: MULTIVITAMINS 30 ML CUP GTB SCH (08:58)
[2019-02-25] MEDS: FOLIC ACID 1 MG TAB PO SCH (08:58)
[2019-02-25] MEDS ORDERED: POTASSIUM CHLORIDE 100 ML IVPB ONE (09:30)
[2019-02-25] MEDS: FUROSEMIDE 40 MG INJ IV SCH (09:31)
[2019-02-25] MEDS: METHYLPREDNISOLONE 40 MG INJ IV SCH (09:31)
[2019-02-25] MEDS: CARBOXYMETHYLCELLULOSE 0.5% 0.4 ML OPH BOTH EYES SCH ×4 (09:31→21:00)
[2019-02-25] MEDS: NYSTATIN/TRIAMCINOLONE 15 GM OINT TOP SCH ×2 (09:32→21:00)
[2019-02-25] MEDS: AQUAPHOR 52.5 GM OINT TOP SCH ×2 (09:32→21:00)
[2019-02-25] MEDS: BALSAM PERU/CASTOR OIL 60 GM TUBE TOP SCH ×2 (09:33→21:00)
--- NOTE | 2019-02-25 09:38 | CONS ---
Consult Date/Type/Reason Admit Date/Time Jan 17, 2019 at 15:58 Initial Consult Date Type of Consultation: Pulm/CCM Requesting Provider: IVAN AKHTAR MD Date/Time of Note DATE: 02/25/19 TIME: 09:34 Subjective NO acute events - pt more alert - HD as needed - pulled out NGT - might needed PEg. Last night pauses to 3.2 sec - BP stable - will monitor clinicaly now. NO new pauses today. ROS: No fever, no chills, no nausea, no vomiting, no diarrhea/constipation - more alert Objective Vitals Vital Signs Date Temp Pulse Resp B/P (MAP) Pulse Ox O2 O2 Flow FiO2 Time Delivery Rate 02/25/19 85 18 98 28 08:35 02/25/19 3.0 08:35 02/25/19 97.1 140/56 Nasal 07:45 (84) Cannula Intake and Output 02/24/19 02/24/19 02/25/19 1515:00 23:00 07:00 IntakeIntake Total 480 ml 380 ml 610 ml OutputOutput Total 2500 ml 400 ml BalanceBalance 480 ml -2120 ml 210 ml Exam General: WN/WD/NAD, AOx 1 HEENT: Unicetric/atraumatic/EOMI (does not follow commands) NECK: JVD elevated, no thyromegaly - pulled NGT Lymph: no lymphadenopathy HEART: irregular with no S3, II/ systolic murmur at apex LUNGS: Coarse sounds ABD: soft, NT, ND, +BS : Intact Neuro: non focal SKIN: chronic changes - better now EXT: trace edema Results/Medications Result Diagram: 02/25/19 0729 02/25/19 0729 Results 24 hrs Laboratory Tests Test 02/24/19 11:49 02/24/19 16:58 02/24/19 21:33 02/25/19 01:02 Bedside Glucose 65 L 112 132 134 Test 02/25/19 04:42 02/25/19 07:29 02/25/19 09:01 Bedside Glucose 96 92 White Blood Count 9.4 Red Blood Count 2.51 L Hemoglobin 7.1 L Hematocrit 24.0 L Mean Corpuscular Volume 95.6 Mean Corpuscular 28.3 L Hemoglobin Mean Corpuscular 29.6 L Hemoglobin Concent Red Cell Distribution 22.5 H Width Platelet Count 161 Mean Platelet Volume 12.6 H Immature Granulocytes % 1.000 H Neutrophils % 74.9 Lymphocytes % 18.4 Monocytes % 5.6 Eosinophils % 0.1 Basophils % 0.0 Nucleated Red Blood 1.6 H Cells % Immature Granulocytes # 0.090 H Neutrophils # 7.0 Lymphocytes # 1.7 Monocytes # 0.5 Eosinophils # 0.0 Basophils # 0.0 Nucleated Red Blood 0.2 H Cells # Sodium Level 137 Potassium Level 3.1 L Chloride Level 101 # Carbon Dioxide Level 30 Anion Gap 6 Blood Urea Nitrogen 59 H Creatinine 1.27 H Est Glomerular Filtrat Rate mL/min Glucose Level 287 #H Calcium Level 7.8 L Phosphorus Level 2.8 Magnesium Level 1.7 Total Bilirubin 0.5 Direct Bilirubin 0.00 Indirect Bilirubin 0.5 Aspartate Amino 31 Transf (AST/SGOT) Alanine 49 Aminotransferase (ALT/SG PT) Alkaline Phosphatase 85 Total Protein 4.5 L Albumin 2.3 L Globulin 2.20 Albumin/Globulin Ratio 1.04 Home Meds Active Scripts Apixaban* (Eliquis*) 5 Mg Tablet, 2.5 MG PO BID for 30 Days, TAB Prov:IVAN AKHTAR MD 12/20/18 Metoprolol Tartrate* (Lopressor*) 50 Mg Tab, 50 MG PO BID for 30 Days, TAB Prov:COOPER CARO 12/20/18 Reported Medications Furosemide* (Lasix*) 20 Mg Tablet, 20 MG PO BID, TAB 01/05/19 Polyethylene Glycol* (Miralax*) 17 Gm Powd.pack, 17 GM PO DAILY, #30 PACKET 12/15/18 Nifedipine* (Nifedipine ER*) 60 Mg Tablet.sa, 60 MG PO DAILY, TAB.SA 12/15/18 Bisacodyl* (Bisacodyl*) 5 Mg Tablet.dr, 10 MG PO BID PRN for CONSTIPATION, TAB 12/15/18 Pregabalin* (Lyrica*) 25 Mg Capsule, 25 MG PO TID, CAP 12/15/18 Bimatoprost* (Lumigan*) 0.01%-5 Ml Opht Drops, 1 DROP BOTH EYES HS, EA 03/02/18 Cetirizine Hcl* (Cetirizine Hcl*) 10 Mg Tablet, 10 MG PO DAILY, #30 TAB 03/02/18 Insulin Glargine* (Lantus*) 100 Unit/Ml Soln, 10 UNIT SC QHS, #1 VIAL 03/02/18 Ergocalciferol (Vitamin D2) (VITAMIN D2) 2,000 Unit Tablet, 2000 UNIT PO DAILY, TAB 03/02/18 Famotidine* (Famotidine*) 20 Mg Tablet, 20 MG PO DAILY, #30 TAB 03/02/18 Ferrous Sulfate* (Ferrous Sulfate*) 325 Mg Tabec, 325 MG PO BID, TAB 03/02/18 Nitroglycerin* (Nitrostat*) 0.4 Mg Tab.subl, 0.4 MG SL Q5MIN PRN for CHEST PAIN, BOTTLE 03/02/18 Terazosin Hcl* (Terazosin Hcl*) 10 Mg Capsule, 10 MG PO HS, CAP 03/02/18 Levothyroxine Sodium* (Levoxyl*) 125 Mcg Tablet, 125 MCG PO BEFORE BREAKFAST, #30 TAB 03/02/18 Allopurinol* (Allopurinol*) 100 Mg Tablet, 100 MG PO BID, TAB 03/02/18 Atorvastatin* (Atorvastatin*) 40 Mg Tablet, 40 MG PO QHS, #30 TAB 03/02/18 Folic Acid* (Folic Acid*) 1 Mg Tablet, 1 MG PO DAILY, TAB 03/02/18 Medications Current Medications Acetaminophen (Tylenol Tab) 650 mg Q4H PRN PO PAIN Last administered on 02/11/19at 21:29; Admin Dose 650 MG; Start 01/17/19 at 18:17 Miscellaneous Information (Pending [facility] Order For Wound Care) This patient ramirez... PRN PRN XX WOUND CARE; Start 01/17/19 at 18:17 Albuterol/ Ipratropium (Duoneb) 3 ml Q2H RESP THERAPY PRN HHN SHORTNESS OF BREATH Last administered on 02/13/19at 05:52; Admin Dose 3 ML; Start 01/17/19 at 18:17 Bisacodyl (Dulcolax) 10 mg BID PRN PO CONSTIPATION; Start 01/17/19 at 18:17; Status Hold Folic Acid (Folic Acid) 1 mg DAILY PO Last administered on 02/24/19at 09:21; Admin Dose 1 MG; Start 01/17/19 at 18:17 Latanoprost (Xalatan) 1 drop HS BOTH EYES Last administered on 02/24/19 21:21; Admin Dose 1 DROP; Start 01/17/19 at 18:17 Nitroglycerin (Nitroglycerin (Sl Tab) 0.4 Mg) 0.4 tab Q5M PRN SL CHEST PAIN; Start 01/17/19 at 18:17 IV Flush (NS 3 ml) 3 ml PER PROTOCOL IV ; Start 01/17/19 at 18:17 Glucose (Glutose) 15 gm Q15M PRN PO DECREASED GLUCOSE; Start 01/17/19 at 18:17 Glucose (Glutose) 22.5 gm Q15M PRN PO DECREASED GLUCOSE; Start 01/17/19 at 18:17 Dextrose (D50w Syringe) 25 ml Q15M PRN IV DECREASED GLUCOSE Last administered on 02/24/19at 04:55; Admin Dose 25 ML; Start 01/17/19 at 18:17 Dextrose (D50w Syringe) 50 ml Q15M PRN IV DECREASED GLUCOSE; Start 01/17/19 at 18:17 Glucagon (Glucagen) 1 mg Q15M PRN IM DECREASED GLUCOSE Last administered on 02/11/19at 17:55; Admin Dose 1 MG; Start 01/17/19 at 18:17 Glucose (Glutose) 15 gm Q15M PRN BUCCAL DECREASED GLUCOSE; Start 01/17/19 at 18:17 Bisacodyl (Dulcolax Supp) 10 mg DAILY PRN [place] CONSTIPATION; Start 01/17/19 at 18:17 Zinc Acetate/ Diphenhydramine (Benadryl 2% Cr) 1 applic Q6H PRN TOP ITCHING Last administered on 02/21/19at 20:38; Admin Dose 1 APPLIC; Start 01/19/19 at 16:37 IV Flush (NS 10 ml) 10 ml PRN PRN IV IV PROTOCOL; Start 01/20/19 at 14:30 Cyanocobalamin (Vitamin B12 Inj) 1,000 mcg Q7D IM Last administered on 02/24/19 09:21; Admin Dose 1,000 MCG; Start 02/03/19 at 09:00 Metoprolol Tartrate (Lopressor) 5 mg Q4H PRN IV HR>110 Hold SBP<100; Start 01/26/19 at 14:30 Enoxaparin Sodium (Lovenox) 60 mg DAILY SC Last administered on 02/03/19 08:06; Admin Dose 60 MG; Start 01/28/19 at 09:00; Status Hold Docusate Sodium (Colace Liquid Cup) 100 mg BID NGT ; Start 01/27/19 at 22:00; Status Hold Terazosin HCl (Hytrin) 10 mg HS NGT Last administered on 02/24/19 21:17; Admin Dose 10 MG; Start 01/28/19 at 21:00 Levothyroxine Sodium (Synthroid) 125 mcg BEFORE BREAKFAST NGT Last administered on 02/25/19 05:19; Admin Dose 125 MCG; Start 01/28/19 at 07:00 Ferrous Sulfate (Feosol Liquid Cup) 300 mg WITH MEALS GTB Last administered on 02/24/19 17:35; Admin Dose 300 MG; Start 01/28/19 at 11:30 Multivitamins (Multivitamin) 30 ml DAILY GTB Last administered on 02/24/19 09:22; Admin Dose 30 ML; Start 01/28/19 at 11:00 Nystatin/ Triamcinolone Acetonide (Mycolog Oint) 1 applic BID TOP Last administered on 02/25/19 09:32; Admin Dose 1 APPLIC; Start 01/28/19 at 22:30 Insulin Aspart (Novolog Insulin Pen) NOVOLOG *MILD* ALGORI... Q4 SC Last administered on 02/23/19 12:30; Admin Dose 1 UNIT; Start 01/29/19 at 05:00 Albuterol/ Ipratropium (Duoneb) 3 ml Q6HWA RESP THERAPY HHN Last administered on 02/25/19 07:40; Admin Dose 3 ML; Start 01/29/19 at 14:00 Epoetin Dae-epbx (RETACRIT(non-esrd)) 40,000 unit Mo@1700 SC Last administered on 02/24/19 17:37; Admin Dose 40,000 UNIT; Start 02/03/19 at 17:00 Eye Lubricant (Refresh Plus) 1 drop QID BOTH EYES Last administered on 02/25/19 09:31; Admin Dose 1 DROP; Start 02/06/19 at 09:00 Eye Lubricant (Akwa Oint) 1 applic HS LEFT EYE Last administered on 02/24/19 21:17; Admin Dose 1 APPLIC; Start 02/06/19 at 21:00 Multi-Ingredient Ointment (Aquaphor Oint 52.5 Gm) 1 applic BID TOP Last administered on 02/25/19at 09:32; Admin Dose 1 APPLIC; Start 02/06/19 at 22:40 Morphine Sulfate (morphine) 0.25 mg Q4H PRN IV SEVERE PAIN LEVEL 7-10 Last administered on 02/21/19 06:06; Admin Dose 0.25 MG; Start 02/15/19 at 11:00 Methylprednisolone Sodium Succinate (Solu-Medrol) 40 mg DAILY IV Last administered on 02/25/19 09:31; Admin Dose 40 MG; Start 02/21/19 at 09:00 Furosemide (Lasix) 40 mg DAILY IV Last administered on 02/25/19 09:31; Admin Dose 40 MG; Start 02/22/19 at 09:00 Lansoprazole (Prevacid) 30 mg BID@0600,1800 NGT Last administered on 02/25/19 05:19; Admin Dose 30 MG; Start 02/21/19 at 18:00 IV Flush (NS 10 ml) 10 ml PRN PRN IV IV PROTOCOL; Start 02/21/19 at 21:00 Dextrose 1,000 ml @ 40 mls/hr Q24H IV Last administered on 02/24/19 11:11; Admin Dose 60 MLS/HR; Start 02/24/19 at 11:00 Albumin Human 100 ml @ 100 mls/hr WITH DIALYSIS PRN IV SBP <90 DURING DIALYSIS; Start 02/24/19 at 14:00 Heparin Sodium (Porcine) (Heparin (1000 Units/ml)) 2,800 unit AFTER DIALYSIS PRN CATHETER Dialysis catheter Last administered on 02/24/19at 16:11; Admin Dose 2,800 UNIT; Start 02/24/19 at 15:00 Potassium Chloride 100 ml @ 50 mls/hr ONCE ONCE IVPB ; Start 02/25/19 at 09:30; Stop 02/25/19 at 11:29 Assessment/Plan Hospital Course (Demo Recall) 1. Atrial fibrillation, currently rate controlled.-off systemic anticoagulation due to anemia. RATE CONTROLLED. BP low but stable. No new bleeding now, but H/H down. Rx as needed for symptoms. HAD pauses day prior - better now, will monitor for now given overall state - no true Sx . 2. CHF - chronic, DD. EF of 60%.Spot diuresis as needed. Acute on chronic, HD now. Rx as needed - improved edema. 3. Tricuspid regurgitation, moderate by most recent echo. 4. Acute on chronic renal failure - Cr up to 1.27- avoid nephrotoxic meds. 5. Hyponatremia - at 137 now - stable. 5. Possible pneumonia - on anti-bx now. ID follows On pressors now. Traeted. 6. History of coronary artery disease, status post coronary artery bypass graft surgery. Treated. 7. Dyslipidemia. 8. Rheumatoid arthritis - Rx per rheumatology. 9. Groin cellulitis. 10. Anemia-worsening again today requiring transfusions - trending down, will monitor. 11. Diabetes mellitus. 12. Sepsis - skin looks better. Con't supportive rX. LOU PATINO MD Feb 25, 2019 09:38
[2019-02-25] MEDS: DEXTROSE 10% 1,000 ML IV SCH (11:23)
--- NOTE | 2019-02-25 12:52 | CONS ---
Consult Date/Type/Reason Admit Date/Time Jan 17, 2019 at 15:58 Initial Consult Date 01/18/19 Type of Consult Pulmonary Requesting Provider: IVAN AKHTAR MD Date/Time of Note DATE: 02/25/19 TIME: 12:51 Subjective Comfortable nasal cannula this morning no respiratory distress Objective Vital Signs Date Temp Pulse Resp B/P (MAP) Pulse Ox O2 O2 Flow FiO2 Time Delivery Rate 02/25/19 74 12:51 02/25/19 97.2 20 126/64 98 Nasal 11:32 (84) Cannula 02/25/19 28 08:35 02/25/19 3.0 08:35 Intake and Output 02/24/19 02/24/19 02/25/19 1515:00 23:00 07:00 IntakeIntake Total 480 ml 380 ml 610 ml OutputOutput Total 2500 ml 400 ml BalanceBalance 480 ml -2120 ml 210 ml Exam GENERAL: Elderly gentleman on nasal cannula O2 VITAL SIGNS: per chart NECK: Supple. No JVD or lymphadenopathy. CARDIAC EXAM: S1, S2. No added sounds or murmurs. CHEST: Diminished air entry bilaterally ABDOMEN: Soft, nontender. No guarding or rebound. EXTREMITIES: No cyanosis, clubbing or edema. NEUROLOGIC: Generalized weakness. No focal deficits. Vent Setting Ventilator Support Mode: AC Fraction of Inspired Oxygen pe: 28 Positive End Expiratory Pressu: 5.0 Results/Medications Result Diagram: 02/25/19 0729 02/25/19 0729 Results 24 hrs Laboratory Tests Test 02/24/19 16:58 02/24/19 21:33 02/25/19 01:02 02/25/19 04:42 Bedside Glucose 112 132 134 96 Test 02/25/19 07:29 02/25/19 09:01 02/25/19 12:37 White Blood Count 9.4 Red Blood Count 2.51 L Hemoglobin 7.1 L Hematocrit 24.0 L Mean Corpuscular Volume 95.6 Mean Corpuscular 28.3 L Hemoglobin Mean Corpuscular 29.6 L Hemoglobin Concent Red Cell Distribution 22.5 H Width Platelet Count 161 Mean Platelet Volume 12.6 H Immature Granulocytes % 1.000 H Neutrophils % 74.9 Lymphocytes % 18.4 Monocytes % 5.6 Eosinophils % 0.1 Basophils % 0.0 Nucleated Red Blood 1.6 H Cells % Immature Granulocytes # 0.090 H Neutrophils # 7.0 Lymphocytes # 1.7 Monocytes # 0.5 Eosinophils # 0.0 Basophils # 0.0 Nucleated Red Blood 0.2 H Cells # Sodium Level 137 Potassium Level 3.1 L Chloride Level 101 # Carbon Dioxide Level 30 Anion Gap 6 Blood Urea Nitrogen 59 H Creatinine 1.27 H Est Glomerular Filtrat Rate mL/min Glucose Level 287 #H Calcium Level 7.8 L Phosphorus Level 2.8 Magnesium Level 1.7 Total Bilirubin 0.5 Direct Bilirubin 0.00 Indirect Bilirubin 0.5 Aspartate Amino 31 Transf (AST/SGOT) Alanine 49 Aminotransferase (ALT/SG PT) Alkaline Phosphatase 85 Total Protein 4.5 L Albumin 2.3 L Globulin 2.20 Albumin/Globulin Ratio 1.04 Bedside Glucose 92 115 Medications Current Medications Acetaminophen (Tylenol Tab) 650 mg Q4H PRN PO PAIN Last administered on 02/11/19at 21:29; Admin Dose 650 MG; Start 01/17/19 at 18:17 Miscellaneous Information (Pending [facility] Order For Wound Care) This patient ramirez... PRN PRN XX WOUND CARE; Start 01/17/19 at 18:17 Albuterol/ Ipratropium (Duoneb) 3 ml Q2H RESP THERAPY PRN HHN SHORTNESS OF BREATH Last administered on 02/13/19at 05:52; Admin Dose 3 ML; Start 01/17/19 at 18:17 Bisacodyl (Dulcolax) 10 mg BID PRN PO CONSTIPATION; Start 01/17/19 at 18:17; Status Hold Folic Acid (Folic Acid) 1 mg DAILY PO Last administered on 02/24/19 09:21; Admin Dose 1 MG; Start 01/17/19 at 18:17 Latanoprost (Xalatan) 1 drop HS BOTH EYES Last administered on 02/24/19 21:21; Admin Dose 1 DROP; Start 01/17/19 at 18:17 Nitroglycerin (Nitroglycerin (Sl Tab) 0.4 Mg) 0.4 tab Q5M PRN SL CHEST PAIN; Start 01/17/19 at 18:17 IV Flush (NS 3 ml) 3 ml PER PROTOCOL IV ; Start 01/17/19 at 18:17 Glucose (Glutose) 15 gm Q15M PRN PO DECREASED GLUCOSE; Start 01/17/19 at 18:17 Glucose (Glutose) 22.5 gm Q15M PRN PO DECREASED GLUCOSE; Start 01/17/19 at 18:17 Dextrose (D50w Syringe) 25 ml Q15M PRN IV DECREASED GLUCOSE Last administered on 02/24/19at 04:55; Admin Dose 25 ML; Start 01/17/19 at 18:17 Dextrose (D50w Syringe) 50 ml Q15M PRN IV DECREASED GLUCOSE; Start 01/17/19 at 18:17 Glucagon (Glucagen) 1 mg Q15M PRN IM DECREASED GLUCOSE Last administered on 02/11/19at 17:55; Admin Dose 1 MG; Start 01/17/19 at 18:17 Glucose (Glutose) 15 gm Q15M PRN BUCCAL DECREASED GLUCOSE; Start 01/17/19 at 18:17 Bisacodyl (Dulcolax Supp) 10 mg DAILY PRN [place] CONSTIPATION; Start 01/17/19 at 18:17 Zinc Acetate/ Diphenhydramine (Benadryl 2% Cr) 1 applic Q6H PRN TOP ITCHING Last administered on 02/21/19at 20:38; Admin Dose 1 APPLIC; Start 01/19/19 at 16:37 IV Flush (NS 10 ml) 10 ml PRN PRN IV IV PROTOCOL; Start 01/20/19 at 14:30 Cyanocobalamin (Vitamin B12 Inj) 1,000 mcg Q7D IM Last administered on 02/24/19at 09:21; Admin Dose 1,000 MCG; Start 02/03/19 at 09:00 Metoprolol Tartrate (Lopressor) 5 mg Q4H PRN IV HR>110 Hold SBP<100; Start 01/26/19 at 14:30 Enoxaparin Sodium (Lovenox) 60 mg DAILY SC Last administered on 02/03/19at 08:06; Admin Dose 60 MG; Start 01/28/19 at 09:00; Status Hold Docusate Sodium (Colace Liquid Cup) 100 mg BID NGT ; Start 01/27/19 at 22:00; Status Hold Terazosin HCl (Hytrin) 10 mg HS NGT Last administered on 02/24/19at 21:17; Admin Dose 10 MG; Start 01/28/19 at 21:00 Levothyroxine Sodium (Synthroid) 125 mcg BEFORE BREAKFAST NGT Last administered on 02/25/19 05:19; Admin Dose 125 MCG; Start 01/28/19 at 07:00 Ferrous Sulfate (Feosol Liquid Cup) 300 mg WITH MEALS GTB Last administered on 02/24/19 17:35; Admin Dose 300 MG; Start 01/28/19 at 11:30 Multivitamins (Multivitamin) 30 ml DAILY GTB Last administered on 02/24/19 09:22; Admin Dose 30 ML; Start 01/28/19 at 11:00 Nystatin/ Triamcinolone Acetonide (Mycolog Oint) 1 applic BID TOP Last administered on 02/25/19 09:32; Admin Dose 1 APPLIC; Start 01/28/19 at 22:30 Insulin Aspart (Novolog Insulin Pen) NOVOLOG *MILD* ALGORI... Q4 SC Last administered on 02/23/19 12:30; Admin Dose 1 UNIT; Start 01/29/19 at 05:00 Albuterol/ Ipratropium (Duoneb) 3 ml Q6HWA RESP THERAPY HHN Last administered on 02/25/19 07:40; Admin Dose 3 ML; Start 01/29/19 at 14:00 Epoetin Dae-epbx (RETACRIT(non-esrd)) 40,000 unit Mo@1700 SC Last administered on 02/24/19 17:37; Admin Dose 40,000 UNIT; Start 02/03/19 at 17:00 Eye Lubricant (Refresh Plus) 1 drop QID BOTH EYES Last administered on 02/25/19 12:39; Admin Dose 1 DROP; Start 02/06/19 at 09:00 Eye Lubricant (Akwa Oint) 1 applic HS LEFT EYE Last administered on 02/24/19 21:17; Admin Dose 1 APPLIC; Start 02/06/19 at 21:00 Multi-Ingredient Ointment (Aquaphor Oint 52.5 Gm) 1 applic BID TOP Last administered on 02/25/19 09:32; Admin Dose 1 APPLIC; Start 02/06/19 at 22:40 Morphine Sulfate (morphine) 0.25 mg Q4H PRN IV SEVERE PAIN LEVEL 7-10 Last administered on 02/21/19 06:06; Admin Dose 0.25 MG; Start 02/15/19 at 11:00 Methylprednisolone Sodium Succinate (Solu-Medrol) 40 mg DAILY IV Last administered on 02/25/19at 09:31; Admin Dose 40 MG; Start 02/21/19 at 09:00 Furosemide (Lasix) 40 mg DAILY IV Last administered on 02/25/19at 09:31; Admin Dose 40 MG; Start 02/22/19 at 09:00 Lansoprazole (Prevacid) 30 mg BID@0600,1800 NGT Last administered on 02/25/19at 05:19; Admin Dose 30 MG; Start 02/21/19 at 18:00 IV Flush (NS 10 ml) 10 ml PRN PRN IV IV PROTOCOL; Start 02/21/19 at 21:00 Dextrose 1,000 ml @ 70 mls/hr [id number] IV Last administered on 02/25/19at 11:23; Admin Dose 70 MLS/HR; Start 02/24/19 at 11:00 Albumin Human 100 ml @ 100 mls/hr WITH DIALYSIS PRN IV SBP <90 DURING D IALYSIS; Start 02/24/19 at 14:00 Heparin Sodium (Porcine) (Heparin (1000 Units/ml)) 2,800 unit AFTER DIALYSIS PRN CATHETER Dialysis catheter Last administered on 02/24/19at 16:11; Admin Dose 2,800 UNIT; Start 02/24/19 at 15:00 Assessment/Plan Hospital Course (Demo Recall) IMP: 1. s/p Acute hypoxemic respiratory failure likely secondary to combination of volume overload and pneumonia, now requiring bilevel ventilation 2. Encephalopathy underlying dementia versus toxic metabolic, appears to be slowly improving possibly secondary to elevated sodium. 3. Valvular heart disease 4. Severe dysphagia 5. Status post septic shock likely secondary to above, persistent leukocytosis. 6. Anemia, no active GI bleeding 7. Skin diffuse excoriating skin lesion unclear etiology not consistent with history of "red man" syndrome. or pemphigus. Likely drug reaction. 8. Anemia 9. Status post septic shock RECS: 1. Trial of nasal cannula O2 2. Continue broad-spectrum antibiotics 3. Infectious work-up as per ID 4. Monitor H&H 5. Diuresis as tolerated 6. G-tube placement Discussed with family. Overall prognosis is extremely poor and they understand the importance of focusing on quality of life. They will reconsider CODE STATUS hopefully revert to DNR. Also consider palliative care approach as opposed to current aggressive measures. DIANA MCRAE MD, [facility] Feb 25, 2019 12:52
--- NOTE | 2019-02-25 13:31 | PN ---
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 Septic shock now on pressors likely secondary to pneumonia on levophed resolved # Hypothermia ? sepsis #. 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 Chronic renal failure likely secondary to sepsis, improved, normal creatinine #. Hypertension.currently hypotensive resolved # Impending respiratory failure on high flow likely secondary to fluid overload/pneumonia much improved , now on nasal cannula sp initattion on HD # Anasarca # Hyperlipidemia. # Hypothyroidism. # Bilateral groin cellulitis more likely associated with mateus, patches in groin and axilla bilaterally. skin peeling # History of rheumatoid arthritis with joint deformities. # Diabetes type 2. # Hx of CABGx2, carotid stent #. Peripheral vascular disease. #. Chronic a.fib, now on lovenox #. right arm edema # Neoplasm per CT abdomen. 4.3 cm cystic lesion along the pancreas body, enlarged since 10/10/2012 (previously 2.4 cm). 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 # Possible allergic skin reaction ? drug present since admission> improved s/p biopsy/ Amrik Betancourt > limit results solar keratosis # hypoThermia #Hypernatremia vasiliy due to dehydration improving # metabolic alkalosis Plan -SP post dialysis which was started X2 , will one session today and then give 1 unit PRBC - CW fluids - G tube tmw - Pt might come off HD> Check 24 hr studies -Monitor kidney function - cw with Lasix 40 IV daily and IV Solu-Medrol daily - nebs, - Holding aspirin and Lovenox due to GI bleeding/anemia - GI and DVT prophylaxsis -oncology consul dr Lorenzo aware:he said Ca 19-9 is negative indicating unlikely malignant. This may be a pseudocyst or a precancerous pancreatic lesion. It has been growing in size but patient is asymptomatic. EUS with biopsy is recommended and can either be done inpatient or outpatient setting. The patient at this time is unlikely a candidate for a Whipple surgery however. -skin care> rash is much improved - s/p skin biopsy pending results solar elastosis according to them is probably due to antibiotics -Off of all antibiotics -PT OT and speech re-eval again Condition much improved in resp status Result Diagram: 02/25/19 0729 02/25/19 0729 Results 24hrs Laboratory Tests Test 02/24/19 16:58 02/24/19 21:33 02/25/19 01:02 02/25/19 04:42 Bedside Glucose 112 132 134 96 Test 02/25/19 07:29 02/25/19 09:01 02/25/19 12:37 White Blood Count 9.4 Red Blood Count 2.51 L Hemoglobin 7.1 L Hematocrit 24.0 L Mean Corpuscular Volume 95.6 Mean Corpuscular 28.3 L Hemoglobin Mean Corpuscular 29.6 L Hemoglobin Concent Red Cell Distribution 22.5 H Width Platelet Count 161 Mean Platelet Volume 12.6 H Immature Granulocytes % 1.000 H Neutrophils % 74.9 Lymphocytes % 18.4 Monocytes % 5.6 Eosinophils % 0.1 Basophils % 0.0 Nucleated Red Blood 1.6 H Cells % Immature Granulocytes # 0.090 H Neutrophils # 7.0 Lymphocytes # 1.7 Monocytes # 0.5 Eosinophils # 0.0 Basophils # 0.0 Nucleated Red Blood 0.2 H Cells # Sodium Level 137 Potassium Level 3.1 L Chloride Level 101 # Carbon Dioxide Level 30 Anion Gap 6 Blood Urea Nitrogen 59 H Creatinine 1.27 H Est Glomerular Filtrat Rate mL/min Glucose Level 287 #H Calcium Level 7.8 L Phosphorus Level 2.8 Magnesium Level 1.7 Total Bilirubin 0.5 Direct Bilirubin 0.00 Indirect Bilirubin 0.5 Aspartate Amino 31 Transf (AST/SGOT) Alanine 49 Aminotransferase (ALT/SG PT) Alkaline Phosphatase 85 Total Protein 4.5 L Albumin 2.3 L Globulin 2.20 Albumin/Globulin Ratio 1.04 Bedside Glucose 92 115 Subjective 24 Hr Interval Summary Free Text/Dictation SP hd yesterday still making urine on nasal cannula swelling much better today Exam/Review of Systems Exam Vitals Vital Signs Date Temp Pulse Resp B/P (MAP) Pulse Ox O2 O2 Flow FiO2 Time Delivery Rate 02/25/19 98 3.0 13:14 02/25/19 74 12:51 02/25/19 97.2 20 126/64 Nasal 11:32 (84) Cannula 02/25/19 28 08:35 Intake and Output 02/24/19 02/24/19 02/25/19 1515:00 23:00 07:00 IntakeIntake Total 480 ml 380 ml 610 ml OutputOutput Total 2500 ml 400 ml BalanceBalance 480 ml -2120 ml 210 ml Exam Exam Constitutional: alert, following more commands Head: normocephalic Eyes: nl conjunctiva Neck: supple Respiratory: diminished breath sounds Cardiovascular: regular rate and rhythm Gastrointestinal: soft Genitourinary - Male: other (rinaldi) swelling has much improved rash is not there anymore Results Results 24hrs Laboratory Tests Test 02/24/19 16:58 02/24/19 21:33 02/25/19 01:02 02/25/19 04:42 Bedside Glucose 112 132 134 96 Test 02/25/19 07:29 02/25/19 09:01 02/25/19 12:37 White Blood Count 9.4 Red Blood Count 2.51 L Hemoglobin 7.1 L Hematocrit 24.0 L Mean Corpuscular Volume 95.6 Mean Corpuscular 28.3 L Hemoglobin Mean Corpuscular 29.6 L Hemoglobin Concent Red Cell Distribution 22.5 H Width Platelet Count 161 Mean Platelet Volume 12.6 H Immature Granulocytes % 1.000 H Neutrophils % 74.9 Lymphocytes % 18.4 Monocytes % 5.6 Eosinophils % 0.1 Basophils % 0.0 Nucleated Red Blood 1.6 H Cells % Immature Granulocytes # 0.090 H Neutrophils # 7.0 Lymphocytes # 1.7 Monocytes # 0.5 Eosinophils # 0.0 Basophils # 0.0 Nucleated Red Blood 0.2 H Cells # Sodium Level 137 Potassium Level 3.1 L Chloride Level 101 # Carbon Dioxide Level 30 Anion Gap 6 Blood Urea Nitrogen 59 H Creatinine 1.27 H Est Glomerular Filtrat Rate mL/min Glucose Level 287 #H Calcium Level 7.8 L Phosphorus Level 2.8 Magnesium Level 1.7 Total Bilirubin 0.5 Direct Bilirubin 0.00 Indirect Bilirubin 0.5 Aspartate Amino 31 Transf (AST/SGOT) Alanine 49 Aminotransferase (ALT/SG PT) Alkaline Phosphatase 85 Total Protein 4.5 L Albumin 2.3 L Globulin 2.20 Albumin/Globulin Ratio 1.04 Bedside Glucose 92 115 Medications Medication Current Medications Acetaminophen (Tylenol Tab) 650 mg Q4H PRN PO PAIN Last administered on 02/11/19at 21:29; Admin Dose 650 MG; Start 01/17/19 at 18:17 [facility] This patient ramirez... PRN PRN XX WOUND CARE; Start 01/17/19 at 18:17 Albuterol/ Ipratropium (Duoneb) 3 ml Q2H RESP THERAPY PRN HHN SHORTNESS OF BREATH Last administered on 02/13/19at 05:52; Admin Dose 3 ML; Start 01/17/19 at 18:17 Bisacodyl (Dulcolax) 10 mg BID PRN PO CONSTIPATION; Start 01/17/19 at 18:17; Status Hold Folic Acid (Folic Acid) 1 mg DAILY PO Last administered on 02/24/19 09:21; Admin Dose 1 MG; Start 01/17/19 at 18:17 Latanoprost (Xalatan) 1 drop HS BOTH EYES Last administered on 02/24/19at 21:21; Admin Dose 1 DROP; Start 01/17/19 at 18:17 Nitroglycerin (Nitroglycerin (Sl Tab) 0.4 Mg) 0.4 tab Q5M PRN SL CHEST PAIN; Start 01/17/19 at 18:17 IV Flush (NS 3 ml) 3 ml PER PROTOCOL IV ; Start 01/17/19 at 18:17 Glucose (Glutose) 15 gm Q15M PRN PO DECREASED GLUCOSE; Start 01/17/19 at 18:17 Glucose (Glutose) 22.5 gm Q15M PRN PO DECREASED GLUCOSE; Start 01/17/19 at 18:17 Dextrose (D50w Syringe) 25 ml Q15M PRN IV DECREASED GLUCOSE Last administered on 02/24/19 04:55; Admin Dose 25 ML; Start 01/17/19 at 18:17 Dextrose (D50w Syringe) 50 ml Q15M PRN IV DECREASED GLUCOSE; Start 01/17/19 at 18:17 Glucagon (Glucagen) 1 mg Q15M PRN IM DECREASED GLUCOSE Last administered on 02/11/19at 17:55; Admin Dose 1 MG; Start 01/17/19 at 18:17 Glucose (Glutose) 15 gm Q15M PRN BUCCAL DECREASED GLUCOSE; Start 01/17/19 at 18:17 Bisacodyl (Dulcolax Supp) 10 mg DAILY PRN [place] CONSTIPATION; Start 01/17/19 at 18:17 Zinc Acetate/ Diphenhydramine (Benadryl 2% Cr) 1 applic Q6H PRN TOP ITCHING Last administered on 02/21/19at 20:38; Admin Dose 1 APPLIC; Start 01/19/19 at 16:37 IV Flush (NS 10 ml) 10 ml PRN PRN IV IV PROTOCOL; Start 01/20/19 at 14:30 Cyanocobalamin (Vitamin B12 Inj) 1,000 mcg Q7D IM Last administered on 02/24/19 09:21; Admin Dose 1,000 MCG; Start 02/03/19 at 09:00 Metoprolol Tartrate (Lopressor) 5 mg Q4H PRN IV HR>110 Hold SBP<100; Start 01/26/19 at 14:30 Enoxaparin Sodium (Lovenox) 60 mg DAILY SC Last administered on 02/03/19at 08:06; Admin Dose 60 MG; Start 01/28/19 at 09:00; Status Hold Docusate Sodium (Colace Liquid Cup) 100 mg BID NGT ; Start 01/27/19 at 22:00; Status Hold Terazosin HCl (Hytrin) 10 mg HS NGT Last administered on 02/24/19 21:17; Admin Dose 10 MG; Start 01/28/19 at 21:00 Levothyroxine Sodium (Synthroid) 125 mcg BEFORE BREAKFAST NGT Last administered on 02/25/19 05:19; Admin Dose 125 MCG; Start 01/28/19 at 07:00 Ferrous Sulfate (Feosol Liquid Cup) 300 mg WITH MEALS GTB Last administered on 02/24/19 17:35; Admin Dose 300 MG; Start 01/28/19 at 11:30 Multivitamins (Multivitamin) 30 ml DAILY GTB Last administered on 02/24/19 09:22; Admin Dose 30 ML; Start 01/28/19 at 11:00 Nystatin/ Triamcinolone Acetonide (Mycolog Oint) 1 applic BID TOP Last administered on 02/25/19 09:32; Admin Dose 1 APPLIC; Start 01/28/19 at 22:30 Insulin Aspart (Novolog Insulin Pen) NOVOLOG *MILD* ALGORI... Q4 SC Last administered on 02/23/19 12:30; Admin Dose 1 UNIT; Start 01/29/19 at 05:00 Albuterol/ Ipratropium (Duoneb) 3 ml Q6HWA RESP THERAPY HHN Last administered on 02/25/19 13:14; Admin Dose 3 ML; Start 01/29/19 at 14:00 Epoetin Dae-epbx (RETACRIT(non-esrd)) 40,000 unit Mo@1700 SC Last administered on 02/24/19 17:37; Admin Dose 40,000 UNIT; Start 02/03/19 at 17:00 Eye Lubricant (Refresh Plus) 1 drop QID BOTH EYES Last administered on 02/25/19 12:39; Admin Dose 1 DROP; Start 02/06/19 at 09:00 Eye Lubricant (Akwa Oint) 1 applic HS LEFT EYE Last administered on 02/24/19 21:17; Admin Dose 1 APPLIC; Start 02/06/19 at 21:00 Multi-Ingredient Ointment (Aquaphor Oint 52.5 Gm) 1 applic BID TOP Last administered on 02/25/19 09:32; Admin Dose 1 APPLIC; Start 02/06/19 at 22:40 Morphine Sulfate (morphine) 0.25 mg Q4H PRN IV SEVERE PAIN LEVEL 7-10 Last administered on 02/21/19 06:06; Admin Dose 0.25 MG; Start 02/15/19 at 11:00 Methylprednisolone Sodium Succinate (Solu-Medrol) 40 mg DAILY IV Last administered on 02/25/19 09:31; Admin Dose 40 MG; Start 02/21/19 at 09:00 Furosemide (Lasix) 40 mg DAILY IV Last administered on 02/25/19 09:31; Admin Dose 40 MG; Start 02/22/19 at 09:00 Lansoprazole (Prevacid) 30 mg BID@0600,1800 NGT Last administered on 02/25/19 05:19; Admin Dose 30 MG; Start 02/21/19 at 18:00 IV Flush (NS 10 ml) 10 ml PRN PRN IV IV PROTOCOL; Start 02/21/19 at 21:00 Dextrose 1,000 ml @ 70 mls/hr [id number] IV Last administered on 02/25/19at 11:23; Admin Dose 70 MLS/HR; Start 02/24/19 at 11:00 Albumin Human 100 ml @ 100 mls/hr WITH DIALYSIS PRN IV SBP <90 DURING DIAL YSIS; Start 02/24/19 at 14:00 Heparin Sodium (Porcine) (Heparin (1000 Units/ml)) 2,800 unit AFTER DIALYSIS PRN CATHETER Dialysis catheter Last administered on 02/24/19at 16:11; Admin Dose 2,800 UNIT; Start 02/24/19 at 15:00 IVAN AKHTAR MD Feb 25, 2019 13:31
--- NOTE | 2019-02-25 15:19 | CONS ---
Assessment/Plan Assessment/Plan Hospital Course (Demo Recall) No events, comfortable on nc, no fevers Antimicrobials: none Indwelling: PICC Wade catheter, NG tube, right femoral Yogesh Allergy: Penicillin, sulfa Physical examination: Obese well-developed chronically ill-appearing - Citizen Of [place] man who is lethargic, in no distress. Head atraumatic normocephalic sclera nonicteric. Neck is supple chest rise symmetrical breath sounds diminished bases. Heart: S1-S2. Abdomen obese soft bowel sounds present extremities without cyanosis, bilateral edema Assessment: 1. S/p sepsis with shock 2. Acute hypoxemic respiratory failure, likely ongoing aspiration 2. Acute encephalopathy 3. S/p seizures 4. S/p Healthcare acquired pneumonia==> treated 5. Coronary artery disease/history of CABG 6. Advanced rheumatoid arthritis 5. Chronic atrial fibrillation 6. Diabetes 7. BPH 9. Acute on chronic anemia===> s/p EGD/colonoscopy 01/09/19 10. Status post right epididymitis 11. Pancreatic lesion per CT, unlikely neoplasm per oncology notes 12. 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 Skin lesions, s/p punch bx, pathology consistent with allergic reaction 14. Acute renal failure 15. DNR/DNI Plan: Stable off antibiotics, continue present care, repeat cx's prn, hemodialysis per renal Consultation Date/Type/Reason Admit Date/Time Jan 17, 2019 at 15:58 Initial Consult Date 01/18/19 Type of Consult id Requesting Provider: IVAN AKHTAR MD Date/Time of Note DATE: 02/25/19 TIME: 15:19 Exam/Review of Systems Exam Vitals Vital Signs Date Temp Pulse Resp B/P (MAP) Pulse Ox O2 O2 Flow FiO2 Time Delivery Rate 02/25/19 98 3.0 13:14 02/25/19 74 12:51 02/25/19 97.2 20 126/64 Nasal 11:32 (84) Cannula 02/25/19 28 08:35 Intake and Output 02/24/19 02/24/19 02/25/19 1515:00 23:00 07:00 IntakeIntake Total 480 ml 380 ml 610 ml OutputOutput Total 2500 ml 400 ml BalanceBalance 480 ml -2120 ml 210 ml Results Result Diagram: 02/25/19 0729 02/25/19 0729 Results 24hrs Laboratory Tests Test 02/24/19 16:58 6/3/19 21:33 02/25/19 01:02 02/25/19 04:42 Bedside Glucose 112 132 134 96 Test 02/25/19 07:29 02/25/19 09:01 02/25/19 12:37 White Blood Count 9.4 Red Blood Count 2.51 L Hemoglobin 7.1 L Hematocrit 24.0 L Mean Corpuscular Volume 95.6 Mean Corpuscular 28.3 L Hemoglobin Mean Corpuscular 29.6 L Hemoglobin Concent Red Cell Distribution 22.5 H Width Platelet Count 161 Mean Platelet Volume 12.6 H Immature Granulocytes % 1.000 H Neutrophils % 74.9 Lymphocytes % 18.4 Monocytes % 5.6 Eosinophils % 0.1 Basophils % 0.0 Nucleated Red Blood 1.6 H Cells % Immature Granulocytes # 0.090 H Neutrophils # 7.0 Lymphocytes # 1.7 Monocytes # 0.5 Eosinophils # 0.0 Basophils # 0.0 Nucleated Red Blood 0.2 H Cells # Sodium Level 137 Potassium Level 3.1 L Chloride Level 101 # Carbon Dioxide Level 30 Anion Gap 6 Blood Urea Nitrogen 59 H Creatinine 1.27 H Est Glomerular Filtrat Rate mL/min Glucose Level 287 #H Calcium Level 7.8 L Phosphorus Level 2.8 Magnesium Level 1.7 Total Bilirubin 0.5 Direct Bilirubin 0.00 Indirect Bilirubin 0.5 Aspartate Amino 31 Transf (AST/SGOT) Alanine 49 Aminotransferase (ALT/SG PT) Alkaline Phosphatase 85 Total Protein 4.5 L Albumin 2.3 L Globulin 2.20 Albumin/Globulin Ratio 1.04 Bedside Glucose 92 115 Medications Medication Current Medications Acetaminophen (Tylenol Tab) 650 mg Q4H PRN PO PAIN Last administered on 02/11/19at 21:29; Admin Dose 650 MG; Start 01/17/19 at 18:17 Miscellaneous Information (Pending [facility] Order For Wound Care) This patient ramirez ... PRN PRN XX WOUND CARE; Start 01/17/19 at 18:17 Albuterol/ Ipratropium (Duoneb) 3 ml Q2H RESP THERAPY PRN HHN SHORTNESS OF BREATH Last administered on 02/13/19at 05:52; Admin Dose 3 ML; Start 01/17/19 at 18:17 Bisacodyl (Dulcolax) 10 mg BID PRN PO CONSTIPATION; Start 01/17/19 at 18:17; Status Hold Folic Acid (Folic Acid) 1 mg DAILY PO Last administered on 02/24/19 09:21; Admin Dose 1 MG; Start 01/17/19 at 18:17 Latanoprost (Xalatan) 1 drop HS BOTH EYES Last administered on 02/24/19 21:21; Admin Dose 1 DROP; Start 01/17/19 at 18:17 Nitroglycerin (Nitroglycerin (Sl Tab) 0.4 Mg) 0.4 tab Q5M PRN SL CHEST PAIN; Start 01/17/19 at 18:17 IV Flush (NS 3 ml) 3 ml PER PROTOCOL IV ; Start 01/17/19 at 18:17 Glucose (Glutose) 15 gm Q15M PRN PO DECREASED GLUCOSE; Start 01/17/19 at 18:17 Glucose (Glutose) 22.5 gm Q15M PRN PO DECREASED GLUCOSE; Start 01/17/19 at 18:17 Dextrose (D50w Syringe) 25 ml Q15M PRN IV DECREASED GLUCOSE Last administered on 02/24/19at 04:55; Admin Dose 25 ML; Start 01/17/19 at 18:17 Dextrose (D50w Syringe) 50 ml Q15M PRN IV DECREASED GLUCOSE; Start 01/17/19 at 18:17 Glucagon (Glucagen) 1 mg Q15M PRN IM DECREASED GLUCOSE Last administered on 02/11/19at 17:55; Admin Dose 1 MG; Start 01/17/19 at 18:17 Glucose (Glutose) 15 gm Q15M PRN BUCCAL DECREASED GLUCOSE; Start 01/17/19 at 18:17 Bisacodyl (Dulcolax Supp) 10 mg DAILY PRN [place] CONSTIPATION; Start 01/17/19 at 18 :17 Zinc Acetate/ Diphenhydramine (Benadryl 2% Cr) 1 applic Q6H PRN TOP ITCHING Last administered on 02/21/19at 20:38; Admin Dose 1 APPLIC; Start 01/19/19 at 16:37 IV Flush (NS 10 ml) 10 ml PRN PRN IV IV PROTOCOL; Start 01/20/19 at 14:30 Cyanocobalamin (Vitamin B12 Inj) 1,000 mcg Q7D IM Last administered on 02/24/19 09:21; Admin Dose 1,000 MCG; Start 02/03/19 at 09:00 Metoprolol Tartrate (Lopressor) 5 mg Q4H PRN IV HR>110 Hold SBP<100; Start 01/26/19 at 14:30 Enoxaparin Sodium (Lovenox) 60 mg DAILY SC Last administered on 02/03/19 08:06; Admin Dose 60 MG; Start 01/28/19 at 09:00; Status Hold Docusate Sodium (Colace Liquid Cup) 100 mg BID NGT ; Start 01/27/19 at 22:00; Status Hold Terazosin HCl (Hytrin) 10 mg HS NGT Last administered on 02/24/19 21:17; Admin Dose 10 MG; Start 01/28/19 at 21:00 Levothyroxine Sodium (Synthroid) 125 mcg BEFORE BREAKFAST NGT Last administered on 02/25/19 05:19; Admin Dose 125 MCG; Start 01/28/19 at 07:00 Ferrous Sulfate (Feosol Liquid Cup) 300 mg WITH MEALS GTB Last administered on 02/24/19 17:35; Admin Dose 300 MG; Start 01/28/19 at 11:30 Multivitamins (Multivitamin) 30 ml DAILY GTB Last administered on 02/24/19 09:22; Admin Dose 30 ML; Start 01/28/19 at 11:00 Nystatin/ Triamcinolone Acetonide (Mycolog Oint) 1 applic BID TOP Last administered on 02/25/19 09:32; Admin Dose 1 APPLIC; Start 01/28/19 at 22:30 Insulin Aspart (Novolog Insulin Pen) NOVOLOG *MILD* ALGORI... Q4 SC Last administered on 02/23/19 12:30; Admin Dose 1 UNIT; Start 01/29/19 at 05:00 Albuterol/ Ipratropium (Duoneb) 3 ml Q6HWA RESP THERAPY HHN Last administered on 02/25/19 13:14; Admin Dose 3 ML; Start 01/29/19 at 14:00 Epoetin Dae-epbx (RETACRIT(non-esrd)) 40,000 unit Mo@1700 SC Last administered on 02/24/19 17:37; Admin Dose 40,000 UNIT; Start 02/03/19 at 17:00 Eye Lubricant (Refresh Plus) 1 drop QID BOTH EYES Last administered on 02/25/19 12:39; Admin Dose 1 DROP; Start 02/06/19 at 09:00 Eye Lubricant (Akwa Oint) 1 applic HS LEFT EYE Last administered on 02/24/19 21:17; Admin Dose 1 APPLIC; Start 02/06/19 at 21:00 Multi-Ingredient Ointment (Aquaphor Oint 52.5 Gm) 1 applic BID TOP Last administered on 02/25/19 09:32; Admin Dose 1 APPLIC; Start 02/06/19 at 22:40 Morphine Sulfate (morphine) 0.25 mg Q4H PRN IV SEVERE PAIN LEVEL 7-10 Last administered on 02/21/19 06:06; Admin Dose 0.25 MG; Start 02/15/19 at 11:00 Methylprednisolone Sodium Succinate (Solu-Medrol) 40 mg DAILY IV Last administered on 02/25/19 09:31; Admin Dose 40 MG; Start 02/21/19 at 09:00 Furosemide (Lasix) 40 mg DAILY IV Last administered on 02/25/19 09:31; Admin Dose 40 MG; Start 02/22/19 at 09:00 Lansoprazole (Prevacid) 30 mg BID@0600,1800 NGT Last administered on 02/25/19 0 5:19; Admin Dose 30 MG; Start 02/21/19 at 18:00 IV Flush (NS 10 ml) 10 ml PRN PRN IV IV PROTOCOL; Start 02/21/19 at 21:00 Dextrose 1,000 ml @ 70 mls/hr [id number] IV Last administered on 02/25/19 11:23; Admin Dose 70 MLS/HR; Start 02/24/19 at 11:00 Albumin Human 100 ml @ 100 mls/hr WITH DIALYSIS PRN IV SBP <90 DURING DIALYSIS; Start 02/24/19 at 14:00 Heparin Sodium (Porcine) (Heparin (1000 Units/ml)) 2,800 unit AFTER DIALYSIS PRN CATHETER Dialysis catheter Last administered on 02/24/19 16:11; Admin Dose 2,800 UNIT; Start 02/24/19 at 15:00 Miscellaneous Information (*Order Clarification Bulletin) MEDICATION REQUIRES CLARIFICATI... Q8H XX ; Start 02/25/19 at 15:30; Stop 02/27/19 at 15:29 LUCIAN HARKINS NP Feb 25, 2019 15:19
--- NOTE | 2019-02-25 15:53 | CONS ---
Assessment/Plan Assessment/Plan Assessment/Plan (Recall) 88 yo M with multiple comorbidities who initially presented for evaluation of hiccups. He was noted to become acutely altered... for which neurology is consulted. He has been transferred to the ICU on several occasions due to ams in the context of respiratory distress/hemodynamic instability and ? seizures.. The clinical picture suggests an acute toxic-metabolic encephalopathy.. Meningoencephalitis is, though, not entirely excluded. MRI brain is without acute ischemia, though notable for chronic infarcts. EEG was without ongoing epileptiform activity LP for CSF valuation was declined by medical decision makers. P: OK to Cont Keppra 500 BID for now Ativan IV PRN prolonged seizure (> 5 min) Agree w/ ASA/Lipitor daily pending the above Limit sedating medications where possible Other medical management per primary Will follow clinically Consultation Date/Type/Reason Admit Date/Time Jan 17, 2019 at 15:58 Type of Consult Neurology Requesting Provider: IVAN AKHTAR MD Date/Time of Note DATE: 02/25/19 TIME: 15:53 24 HR Interval Summary Free Text/Dictation Continues acute care. Exam/Review of Systems Exam Vitals Vital Signs Date Temp Pulse Resp B/P (MAP) Pulse Ox O2 O2 Flow FiO2 Time Delivery Rate 02/25/19 97.3 73 20 132/57 100 Nasal 15:48 (82) Cannula 02/25/19 3.0 13:14 02/25/19 28 08:35 Intake and Output 02/24/19 02/24/19 02/25/19 1515:00 23:00 07:00 IntakeIntake Total 480 ml 380 ml 610 ml OutputOutput Total 2500 ml 400 ml BalanceBalance 480 ml -2120 ml 210 ml Exam PE: Gen Appearance: No Apparent Distress HEENT: Normocephalic; on nasal cannula Cardiovascular: Regular rate Abdomen: Soft Extremities: Dry. NE: The patient was lethargic and sparsely verbal. Did not follow commands. Cranial nerve examination was limited by mental status. Pupils were equal and reactive to light. There was no afferent pupillary defect. Funduscopic examination was limited. Face was grossly symmetric. Tone was normal. Muscle bulk was normal. I did not see fasciculations. The patient withdrew his extremities to noxious stimuli. Coordination and gait testing was limited by mental status. Arm and leg reflexes were within normal limits and symmetric. Gray's sign was absent. Plantar responses were flexor. Results Result Diagram: 02/25/19 0729 02/25/19 0729 Results 24hrs Laboratory Tests Test 02/24/19 16:58 02/24/19 21:33 02/25/19 01:02 02/25/19 04:42 Bedside Glucose 112 132 134 96 Test 02/25/19 07:29 02/25/19 09:01 02/25/19 12:37 White Blood Count 9.4 Red Blood Count 2.51 L Hemoglobin 7.1 L Hematocrit 24.0 L Mean Corpuscular Volume 95.6 Mean Corpuscular 28.3 L Hemoglobin Mean Corpuscular 29.6 L Hemoglobin Concent Red Cell Distribution 22.5 H Width Platelet Count 161 Mean Platelet Volume 12.6 H Immature Granulocytes % 1.000 H Neutrophils % 74.9 Lymphocytes % 18.4 Monocytes % 5.6 Eosinophils % 0.1 Basophils % 0.0 Nucleated Red Blood 1.6 H Cells % Immature Granulocytes # 0.090 H Neutrophils # 7.0 Lymphocytes # 1.7 Monocytes # 0.5 Eosinophils # 0.0 Basophils # 0.0 Nucleated Red Blood 0.2 H Cells # Sodium Level 137 Potassium Level 3.1 L Chloride Level 101 # Carbon Dioxide Level 30 Anion Gap 6 Blood Urea Nitrogen 59 H Creatinine 1.27 H Est Glomerular Filtrat Rate mL/min Glucose Level 287 #H Calcium Level 7.8 L Phosphorus Level 2.8 Magnesium Level 1.7 Total Bilirubin 0.5 Direct Bilirubin 0.00 Indirect Bilirubin 0.5 Aspartate Amino 31 Transf (AST/SGOT) Alanine 49 Aminotransferase (ALT/SG PT) Alkaline Phosphatase 85 Total Protein 4.5 L Albumin 2.3 L Globulin 2.20 Albumin/Globulin Ratio 1.04 Bedside Glucose 92 115 Medications Medication Current Medications Acetaminophen (Tylenol Tab) 650 mg Q4H PRN PO PAIN Last administered on 02/11/19at 21:29; Admin Dose 650 MG; Start 01/17/19 at 18:17 Miscellaneous Information (Pending [facility] Order For Wound Care) This patient ramirez... PRN PRN XX WOUND CARE; Start 01/17/19 at 18:17 Albuterol/ Ipratropium (Duoneb) 3 ml Q2H RESP THERAPY PRN HHN SHORTNESS OF BREATH Last administered on 02/13/19at 05:52; Admin Dose 3 ML; Start 01/17/19 at 18:17 Bisacodyl (Dulcolax) 10 mg BID PRN PO CONSTIPATION; Start 01/17/19 at 18:17; Status Hold Folic Acid (Folic Acid) 1 mg DAILY PO Last administered on 02/24/19at 09:21; Admi n Dose 1 MG; Start 01/17/19 at 18:17 Latanoprost (Xalatan) 1 drop HS BOTH EYES Last administered on 02/24/19at 21:21; Admin Dose 1 DROP; Start 01/17/19 at 18:17 Nitroglycerin (Nitroglycerin (Sl Tab) 0.4 Mg) 0.4 tab Q5M PRN SL CHEST PAIN; Start 01/17/19 at 18:17 IV Flush (NS 3 ml) 3 ml PER PROTOCOL IV ; Start 01/17/19 at 18:17 Glucose (Glutose) 15 gm Q15M PRN PO DECREASED GLUCOSE; Start 01/17/19 at 18:17 Glucose (Glutose) 22.5 gm Q15M PRN PO DECREASED GLUCOSE; Start 01/17/19 at 18:17 Dextrose (D50w Syringe) 25 ml Q15M PRN IV DECREASED GLUCOSE Last administered on 02/24/19at 04:55; Admin Dose 25 ML; Start 01/17/19 at 18:17 Dextrose (D50w Syringe) 50 ml Q15M PRN IV DECREASED GLUCOSE; Start 01/17/19 at 18:17 Glucagon (Glucagen) 1 mg Q15M PRN IM DECREASED GLUCOSE Last administered on 02/11/19at 17:55; Admin Dose 1 MG; Start 01/17/19 at 18:17 Glucose (Glutose) 15 gm Q15M PRN BUCCAL DECREASED GLUCOSE; Start 01/17/19 at 18:17 Bisacodyl (Dulcolax Supp) 10 mg DAILY PRN [place] CONSTIPATION; Start 01/17/19 at 18:17 Zinc Acetate/ Diphenhydramine (Benadryl 2% Cr) 1 applic Q6H PRN TOP ITCHING Last administered on 02/21/19at 20:38; Admin Dose 1 APPLIC; Start 01/19/19 at 16:37 IV Flush (NS 10 ml) 10 ml PRN PRN IV IV PROTOCOL; Start 01/20/19 at 14:30 Cyanocobalamin (Vitamin B12 Inj) 1,000 mcg Q7D IM Last administered on 02/24/19 09:21; Admin Dose 1,000 MCG; Start 02/03/19 at 09:00 Metoprolol Tartrate (Lopressor) 5 mg Q4H PRN IV HR>110 Hold SBP<100; Start 01/26/19 at 14:30 Enoxaparin Sodium (Lovenox) 60 mg DAILY SC Last administered on 02/03/19 08:06; Admin Dose 60 MG; Start 01/28/19 at 09:00; Status Hold Docusate Sodium (Colace Liquid Cup) 100 mg BID NGT ; Start 01/27/19 at 22:00; Status Hold Terazosin HCl (Hytrin) 10 mg HS NGT Last administered on 02/24/19 21:17; Admin Dose 10 MG; Start 01/28/19 at 21:00 Levothyroxine Sodium (Synthroid) 125 mcg BEFORE BREAKFAST NGT Last administ ered on 02/25/19 05:19; Admin Dose 125 MCG; Start 01/28/19 at 07:00 Ferrous Sulfate (Feosol Liquid Cup) 300 mg WITH MEALS GTB Last administered on 02/24/19 17:35; Admin Dose 300 MG; Start 01/28/19 at 11:30 Multivitamins (Multivitamin) 30 ml DAILY GTB Last administered on 02/24/19 09:22; Admin Dose 30 ML; Start 01/28/19 at 11:00 Nystatin/ Triamcinolone Acetonide (Mycolog Oint) 1 applic BID TOP Last administered on 02/25/19 09:32; Admin Dose 1 APPLIC; Start 01/28/19 at 22:30 Insulin Aspart (Novolog Insulin Pen) NOVOLOG *MILD* ALGORI... Q4 SC Last administered on 02/23/19 12:30; Admin Dose 1 UNIT; Start 01/29/19 at 05:00 Albuterol/ Ipratropium (Duoneb) 3 ml Q6HWA RESP THERAPY HHN Last administered on 02/25/19 13:14; Admin Dose 3 ML; Start 01/29/19 at 14:00 Epoetin Dae-epbx (RETACRIT(non-esrd)) 40,000 unit Mo@1700 SC Last administered on 02/24/19 17:37; Admin Dose 40,000 UNIT; Start 02/03/19 at 17:00 Eye Lubricant (Refresh Plus) 1 drop QID BOTH EYES Last administered on 02/25/19 12:39; Admin Dose 1 DROP; Start 02/06/19 at 09:00 Eye Lubricant (Akwa Oint) 1 applic HS LEFT EYE Last administered on 02/24/19 21:17; Admin Dose 1 APPLIC; Start 02/06/19 at 21:00 Multi-Ingredient Ointment (Aquaphor Oint 52.5 Gm) 1 applic BID TOP Last administered on 02/25/19 09:32; Admin Dose 1 APPLIC; Start 02/06/19 at 22:40 Morphine Sulfate (morphine) 0.25 mg Q4H PRN IV SEVERE PAIN LEVEL 7-10 Last administered on 02/21/19 06:06; Admin Dose 0.25 MG; Start 02/15/19 at 11:00 Methylprednisolone Sodium Succinate (Solu-Medrol) 40 mg DAILY IV Last administered on 02/25/19 09:31; Admin Dose 40 MG; Start 02/21/19 at 09:00 Furosemide (Lasix) 40 mg DAILY IV Last administered on 02/25/19 09:31; Admin Dose 40 MG; Start 02/22/19 at 09:00 Lansoprazole (Prevacid) 30 mg BID@0600,1800 NGT Last administered on 02/25/19 05:19; Admin Dose 30 MG; Start 02/21/19 at 18:00 IV Flush (NS 10 ml) 10 ml PRN PRN IV IV PROTOCOL; Start 02/21/19 at 21:00 Dextrose 1,000 ml @ 70 mls/hr [id number] IV Last administered on 02/25/19 11:23; Admin Dose 70 MLS/HR; Start 02/24/19 at 11:00 Albumin Human 100 ml @ 100 mls/hr WITH DIALYSIS PRN IV SBP <90 DURING DIALYSIS; Start 02/24/19 at 14:00 Heparin Sodium (Porcine) (Heparin (1000 Units/ml)) 2,800 unit AFTER DIALYSIS PRN CATHETER Dialysis catheter Last administered on 02/24/19 16:11; Admin Dose 2,800 UNIT; Start 02/24/19 at 15:00 Miscellaneous Information (*Order Clarification Bulletin) MEDICATION REQUIRES CLARIFICATI... Q8H XX ; Start 02/25/19 at 15:30; Stop 02/27/19 at 15:29 NEGRA CORONA NP Feb 25, 2019 15:53 ANGE RAMIREZ Feb 25, 2019 19:49
--- NOTE | 2019-02-25 16:11 | CONS ---
Assessment/Plan Assessment/Plan Hospital Course (Demo Recall) 88 yo male with multiple medical problems including DM, CRF, RA, PVD and chronic afib on Eliquis who presented to [facility] 01/05/19 with severe normocytic anemia and Hg ~7. 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 # Anemia-normocytic -Hg stable around 7. 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 Elevated Methylmalonic acid level noted -s/p IV iron. will recheck iron panel at this time -continue vitamin b12 weekly as vitamin b12 was low normal and methylmalonic acid was elevated. Continue folate as well. -No evidence of hemolysis at this time. -Transfuse to keep Hgb > 7. 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 -This may be a pseudocyst or a precancerous pancreatic lesion. -It has been growing in size but patient is asymptomatic. EUS with biopsy is recommended and can either be done inpatient or outpatient setting. -The patient at this time is unlikely a candidate for a whipple surgery however. Thank you to Dr. Alatorre for allowing [facility] to participate in the care of this patient. A total of 40 minutes was spent in consultation with this patient and all his questions were answered. Consultation Date/Type/Reason Admit Date/Time Jan 17, 2019 at 15:58 Initial Consult Date 01/18/19 Type of Consult hematology Reason for Consultation anemia Requesting Provider: IVAN AKHTAR MD Date/Time of Note DATE: 02/25/19 TIME: 16:09 24 HR Interval Summary Free Text/Dictation PEG scheduled for tomorrow Exam/Review of Systems Exam Vitals Vital Signs Date Temp Pulse Resp B/P (MAP) Pulse Ox O2 O2 Flow FiO2 Time Delivery Rate 02/25/19 97.3 73 20 132/57 100 Nasal 15:48 (82) Cannula 02/25/19 3.0 13:14 02/25/19 28 08:35 Intake and Output 02/24/19 02/24/19 02/25/19 1515:00 23:00 07:00 IntakeIntake Total 480 ml 380 ml 610 ml OutputOutput Total 2500 ml 400 ml BalanceBalance 480 ml -2120 ml 210 ml Constitutional: distress, frail Psych: anxiety Head: normocephalic Eyes: nl conjunctiva ENMT: nl external ears & nose Neck: supple Respiratory: clear to auscultation Cardiovascular: regular rate and rhythm Gastrointestinal: soft Musculoskeletal: nl extremities to inspection Results Result Diagram: 02/25/19 0729 02/25/19 0729 Results 24hrs Laboratory Tests Test 02/24/19 16:58 02/24/19 21:33 02/25/19 01:02 02/25/19 04:42 Bedside Glucose 112 132 134 96 Test 02/25/19 07:29 02/25/19 09:01 02/25/19 12:37 White Blood Count 9.4 Red Blood Count 2.51 L Hemoglobin 7.1 L Hematocrit 24.0 L Mean Corpuscular Volume 95.6 Mean Corpuscular 28.3 L Hemoglobin Mean Corpuscular 29.6 L Hemoglobin Concent Red Cell Distribution 22.5 H Width Platelet Count 161 Mean Platelet Volume 12.6 H Immature Granulocytes % 1.000 H Neutrophils % 74.9 Lymphocytes % 18.4 Monocytes % 5.6 Eosinophils % 0.1 Basophils % 0.0 Nucleated Red Blood 1.6 H Cells % Immature Granulocytes # 0.090 H Neutrophils # 7.0 Lymphocytes # 1.7 Monocytes # 0.5 Eosinophils # 0.0 Basophils # 0.0 Nucleated Red Blood 0.2 H Cells # Sodium Level 137 Potassium Level 3.1 L Chloride Level 101 # Carbon Dioxide Level 30 Anion Gap 6 Blood Urea Nitrogen 59 H Creatinine 1.27 H Est Glomerular Filtrat Rate mL/min Glucose Level 287 #H Calcium Level 7.8 L Phosphorus Level 2.8 Magnesium Level 1.7 Total Bilirubin 0.5 Direct Bilirubin 0.00 Indirect Bilirubin 0.5 Aspartate Amino 31 Transf (AST/SGOT) Alanine 49 Aminotransferase (ALT/SG PT) Alkaline Phosphatase 85 Total Protein 4.5 L Albumin 2.3 L Globulin 2.20 Albumin/Globulin Ratio 1.04 Bedside Glucose 92 115 Medications Medication Current Medications Acetaminophen (Tylenol Tab) 650 mg Q4H PRN PO PAIN Last administered on 02/11/19 21:29; Admin Dose 650 MG; Start 01/17/19 at 18:17 Miscellaneous Information (Pending [facility] Order For Wound Care) This patient ramirez... PRN PRN XX WOUND CARE; Start 01/17/19 at 18:17 Albuterol/ Ipratropium (Duoneb) 3 ml Q2H RESP THERAPY PRN HHN SHORTNESS OF BREATH Last administered on 02/13/19at 05:52; Admin Dose 3 ML; Start 01/17/19 at 18:17 Bisacodyl (Dulcolax) 10 mg BID PRN PO CONSTIPATION; Start 01/17/19 at 18:17; Status Hold Folic Acid (Folic Acid) 1 mg DAILY PO Last administered on 02/24/19 09:21; Admin Dose 1 MG; Start 01/17/19 at 18:17 Latanoprost (Xalatan) 1 drop HS BOTH EYES Last administered on 02/24/19 21:21; Admin Dose 1 DROP; Start 01/17/19 at 18:17 Nitroglycerin (Nitroglycerin (Sl Tab) 0.4 Mg) 0.4 tab Q5M PRN SL CHEST PAIN; Start 01/17/19 at 18:17 IV Flush (NS 3 ml) 3 ml PER PROTOCOL IV ; Start 01/17/19 at 18:17 Glucose (Glutose) 15 gm Q15M PRN PO DECREASED GLUCOSE; Start 01/17/19 at 18:17 Glucose (Glutose) 22.5 gm Q15M PRN PO DECREASED GLUCOSE; Start 01/17/19 at 18:17 Dextrose (D50w Syringe) 25 ml Q15M PRN IV DECREASED GLUCOSE Last administered on 02/24/19 04:55; Admin Dose 25 ML; Start 01/17/19 at 18:17 Dextrose (D50w Syringe) 50 ml Q15M PRN IV DECREASED GLUCOSE; Start 01/17/19 at 18:17 Glucagon (Glucagen) 1 mg Q15M PRN IM DECREASED GLUCOSE Last administered on 02/11/19at 17:55; Admin Dose 1 MG; Start 01/17/19 at 18:17 Glucose (Glutose) 15 gm Q15M PRN BUCCAL DECREASED GLUCOSE; Start 01/17/19 at 18:17 Bisacodyl (Dulcolax Supp) 10 mg DAILY PRN [place] CONSTIPATION; Start 01/17/19 at 18:17 Zinc Acetate/ Diphenhydramine (Benadryl 2% Cr) 1 applic Q6H PRN TOP ITCHING Last administered on 02/21/19 20:38; Admin Dose 1 APPLIC; Start 01/19/19 at 16:37 IV Flush (NS 10 ml) 10 ml PRN PRN IV IV PROTOCOL; Start 01/20/19 at 14:30 Cyanocobalamin (Vitamin B12 Inj) 1,000 mcg Q7D IM Last administered on 02/24/19 09:21; Admin Dose 1,000 MCG; Start 02/03/19 at 09:00 Metoprolol Tartrate (Lopressor) 5 mg Q4H PRN IV HR>110 Hold SBP<100; Start 01/26/19 at 14:30 Enoxaparin Sodium (Lovenox) 60 mg DAILY SC Last administered on 02/03/19 08:06; Admin Dose 60 MG; Start 01/28/19 at 09:00; Status Hold Docusate Sodium (Colace Liquid Cup) 100 mg BID NGT ; Start 01/27/19 at 22:00; Status Hold Terazosin HCl (Hytrin) 10 mg HS NGT Last administered on 02/24/19 21:17; Admin Dose 10 MG; Start 01/28/19 at 21:00 Levothyroxine Sodium (Synthroid) 125 mcg BEFORE BREAKFAST NGT Last administered on 02/25/19 05:19; Admin Dose 125 MCG; Start 01/28/19 at 07:00 Ferrous Sulfate (Feosol Liquid Cup) 300 mg WITH MEALS GTB Last administered on 02/24/19 17:35; Admin Dose 300 MG; Start 01/28/19 at 11:30 Multivitamins (Multivitamin) 30 ml DAILY GTB Last administered on 02/24/19 09:22; Admin Dose 30 ML; Start 01/28/19 at 11:00 Nystatin/ Triamcinolone Acetonide (Mycolog Oint) 1 applic BID TOP Last administered on 02/25/19 09:32; Admin Dose 1 APPLIC; Start 01/28/19 at 22:30 Insulin Aspart (Novolog Insulin Pen) NOVOLOG *MILD* ALGORI... Q4 SC Last administered on 02/23/19 12:30; Admin Dose 1 UNIT; Start 01/29/19 at 05:00 Albuterol/ Ipratropium (Duoneb) 3 ml Q6HWA RESP THERAPY HHN Last administered on 02/25/19 13:14; Admin Dose 3 ML; Start 01/29/19 at 14:00 Epoetin Dae-epbx (RETACRIT(non-esrd)) 40,000 unit Mo@1700 SC Last administered on 02/24/19 17:37; Admin Dose 40,000 UNIT; Start 02/03/19 at 17:00 Eye Lubricant (Refresh Plus) 1 drop QID BOTH EYES Last administered on 02/25/19 12:39; Admin Dose 1 DROP; Start 02/06/19 at 09:00 Eye Lubricant (Akwa Oint) 1 applic HS LEFT EYE Last administered on 02/24/19 21:17; Admin Dose 1 APPLIC; Start 02/06/19 at 21:00 Multi-Ingredient Ointment (Aquaphor Oint 52.5 Gm) 1 applic BID TOP Last administered on 02/25/19 09:32; Admin Dose 1 APPLIC; Start 02/06/19 at 22:40 Morphine Sulfate (morphine) 0.25 mg Q4H PRN IV SEVERE PAIN LEVEL 7-10 Last administered on 02/21/19 06:06; Admin Dose 0.25 MG; Start 02/15/19 at 11:00 Methylprednisolone Sodium Succinate (Solu-Medrol) 40 mg DAILY IV Last administered on 02/25/19 09:31; Admin Dose 40 MG; Start 02/21/19 at 09:00 Furosemide (Lasix) 40 mg DAILY IV Last administered on 02/25/19 09:31; Admin Dose 40 MG; Start 02/22/19 at 09:00 Lansoprazole (Prevacid) 30 mg BID@0600,1800 NGT Last administered on 02/25/19 05:19; Admin Dose 30 MG; Start 02/21/19 at 18:00 IV Flush (NS 10 ml) 10 ml PRN PRN IV IV PROTOCOL; Start 02/21/19 at 21:00 Dextrose 1,000 ml @ 70 mls/hr [id number] IV Last administered on 02/25/19 11:23; Admin Dose 70 MLS/HR; Start 02/24/19 at 11:00 Albumin Human 100 ml @ 100 mls/hr WITH DIALYSIS PRN IV SBP <90 DURING DIALYSIS; Start 02/24/19 at 14:00 Heparin Sodium (Porcine) (Heparin (1000 Units/ml)) 2,800 unit AFTER DIALYSIS PRN CATHETER Dialysis catheter Last administered on 02/24/19at 16:11; Admin Dose 2,800 UNIT; Start 02/24/19 at 15:00 Miscellaneous Information (*Order Clarification Bulletin) MEDICATION REQUIRES CLARIFICATI... Q8H XX ; Start 02/25/19 at 15:30; Stop 02/27/19 at 15:29 OREN MARSH M.D. Feb 25, 2019 16:11
--- NOTE | 2019-02-25 17:26 | PREAC ---
Date/Time of Note Date/Time of Note DATE: 02/25/19 TIME: 17:24 Anesthesia Eval and Record Evaluation Time Pre-Procedure Interview DATE: 02/25/19 TIME: 17:24 Age 88 Sex male NPO: 8 hrs Preoperative diagnosis feeding access Planned procedure EGD / PEG Past Medical History Past Medical History: Includes Cardio: HTN, Dyslipidemia, CAD, CABG, Other (Peripheral vascular disease.) Endo: Diabetes, Hyperthyroid Renal: ESRD on dialysis (Dialysis scheduled today 02/25/19) Heme: Anemia Surgery & Anesthesia Issues No known issue Meds Anticoagulation: No Beta Jose within 24 hr: No Reason Beta Jose not given: Pt. not on B-Jose Active Scripts Apixaban* (Eliquis*) 5 Mg Tablet, 2.5 MG PO BID for 30 Days, TAB Prov:IVAN AKHTAR MD 12/20/18 Metoprolol Tartrate* (Lopressor*) 50 Mg Tab, 50 MG PO BID for 30 Days, TAB Prov:COOPER CARO 12/20/18 Reported Medications Furosemide* (Lasix*) 20 Mg Tablet, 20 MG PO BID, TAB 01/05/19 Polyethylene Glycol* (Miralax*) 17 Gm Powd.pack, 17 GM PO DAILY, #30 PACKET 12/15/18 Nifedipine* (Nifedipine ER*) 60 Mg Tablet.sa, 60 MG PO DAILY, TAB.SA 12/15/18 Bisacodyl* (Bisacodyl*) 5 Mg Tablet.dr, 10 MG PO BID PRN for CONSTIPATION, TAB 12/15/18 Pregabalin* (Lyrica*) 25 Mg Capsule, 25 MG PO TID, CAP 12/15/18 Bimatoprost* (Lumigan*) 0.01%-5 Ml Opht Drops, 1 DROP BOTH EYES HS, EA 03/02/18 Cetirizine Hcl* (Cetirizine Hcl*) 10 Mg Tablet, 10 MG PO DAILY, #30 TAB 03/02/18 Insulin Glargine* (Lantus*) 100 Unit/Ml Soln, 10 UNIT SC QHS, #1 VIAL 03/02/18 Ergocalciferol (Vitamin D2) (VITAMIN D2) 2,000 Unit Tablet, 2000 UNIT PO DAILY, TAB 03/02/18 Famotidine* (Famotidine*) 20 Mg Tablet, 20 MG PO DAILY, #30 TAB 03/02/18 Ferrous Sulfate* (Ferrous Sulfate*) 325 Mg Tabec, 325 MG PO BID, TAB 03/02/18 Nitroglycerin* (Nitrostat*) 0.4 Mg Tab.subl, 0.4 MG SL Q5MIN PRN for CHEST PAIN, BOTTLE 03/02/18 Terazosin Hcl* (Terazosin Hcl*) 10 Mg Capsule, 10 MG PO HS, CAP 03/02/18 Levothyroxine Sodium* (Levoxyl*) 125 Mcg Tablet, 125 MCG PO BEFORE BREAKFAST, #30 TAB 03/02/18 Allopurinol* (Allopurinol*) 100 Mg Tablet, 100 MG PO BID, TAB 03/02/18 Atorvastatin* (Atorvastatin*) 40 Mg Tablet, 40 MG PO QHS, #30 TAB 03/02/18 Folic Acid* (Folic Acid*) 1 Mg Tablet, 1 MG PO DAILY, TAB 03/02/18 Current Medications Acetaminophen (Tylenol Tab) 650 mg Q4H PRN PO PAIN Last administered on 02/11/19at 21:29; Admin Dose 650 MG; Start 01/17/19 at 18:17 Miscellaneous Information ([facility]) This patient ramirez... PRN PRN XX WOUND CARE; Start 01/17/19 at 18:17 Albuterol/ Ipratropium (Duoneb) 3 ml Q2H RESP THERAPY PRN HHN SHORTNESS OF BREATH Last administered on 02/13/19at 05:52; Admin Dose 3 ML; Start 01/17/19 at 18:17 Bisacodyl (Dulcolax) 10 mg BID PRN PO CONSTIPATION; Start 01/17/19 at 18:17; Status Hold Folic Acid (Folic Acid) 1 mg DAILY PO Last administered on 02/24/19at 09:21; Admin Dose 1 MG; Start 01/17/19 at 18:17 Latanoprost (Xalatan) 1 drop HS BOTH EYES Last administered on 02/24/19at 21:21; Admin Dose 1 DROP; Start 01/17/19 at 18:17 Nitroglycerin (Nitroglycerin (Sl Tab) 0.4 Mg) 0.4 tab Q5M PRN SL CHEST PAIN; Start 01/17/19 at 18:17 IV Flush (NS 3 ml) 3 ml PER PROTOCOL IV ; Start 01/17/19 at 18:17 Glucose (Glutose) 15 gm Q15M PRN PO DECREASED GLUCOSE; Start 01/17/19 at 18:17 Glucose (Glutose) 22.5 gm Q15M PRN PO DECREASED GLUCOSE; Start 01/17/19 at 18:17 Dextrose (D50w Syringe) 25 ml Q15M PRN IV DECREASED GLUCOSE Last administered on 02/24/19at 04:55; Admin Dose 25 ML; Start 01/17/19 at 18:17 Dextrose (D50w Syringe) 50 ml Q15M PRN IV DECREASED GLUCOSE; Start 01/17/19 at 18:17 Glucagon (Glucagen) 1 mg Q15M PRN IM DECREASED GLUCOSE Last administered on 02/11/19at 17:55; Admin Dose 1 MG; Start 01/17/19 at 18:17 Glucose (Glutose) 15 gm Q15M PRN BUCCAL DECREASED GLUCOSE; Start 01/17/19 at 18:17 Bisacodyl (Dulcolax Supp) 10 mg DAILY PRN [place] CONSTIPATION; Start 01/17/19 at 18:17 Zinc Acetate/ Diphenhydramine (Benadryl 2% Cr) 1 applic Q6H PRN TOP ITCHING Last administered on 02/21/19at 20:38; Admin Dose 1 APPLIC; Start 01/19/19 at 16:37 IV Flush (NS 10 ml) 10 ml PRN PRN IV IV PROTOCOL; Start 01/20/19 at 14:30 Cyanocobalamin (Vitamin B12 Inj) 1,000 mcg Q7D IM Last administered on 02/24/19at 09:21; Admin Dose 1,000 MCG; Start 02/03/19 at 09:00 Metoprolol Tartrate (Lopressor) 5 mg Q4H PRN IV HR>110 Hold SBP<100; Start 01/26/19 at 14:30 Enoxaparin Sodium (Lovenox) 60 mg DAILY SC Last administered on 02/03/19at 08 :06; Admin Dose 60 MG; Start 01/28/19 at 09:00; Status Hold Docusate Sodium (Colace Liquid Cup) 100 mg BID NGT ; Start 01/27/19 at 22:00; Status Hold Terazosin HCl (Hytrin) 10 mg HS NGT Last administered on 6/3/19at 21:17; Admin Dose 10 MG; Start 01/28/19 at 21:00 Levothyroxine Sodium (Synthroid) 125 mcg BEFORE BREAKFAST NGT Last administered on 02/25/19 05:19; Admin Dose 125 MCG; Start 01/28/19 at 07:00 Ferrous Sulfate (Feosol Liquid Cup) 300 mg WITH MEALS GTB Last administered on 02/24/19 17:35; Admin Dose 300 MG; Start 01/28/19 at 11:30 Multivitamins (Multivitamin) 30 ml DAILY GTB Last administered on 02/24/19 09:22; Admin Dose 30 ML; Start 01/28/19 at 11:00 Nystatin/ Triamcinolone Acetonide (Mycolog Oint) 1 applic BID TOP Last administered on 02/25/19 09:32; Admin Dose 1 APPLIC; Start 01/28/19 at 22:30 Insulin Aspart (Novolog Insulin Pen) NOVOLOG *MILD* ALGORI... Q4 SC Last admini stered on 02/23/19 12:30; Admin Dose 1 UNIT; Start 01/29/19 at 05:00 Albuterol/ Ipratropium (Duoneb) 3 ml Q6HWA RESP THERAPY HHN Last administered on 02/25/19 13:14; Admin Dose 3 ML; Start 01/29/19 at 14:00 Epoetin Dae-epbx (RETACRIT(non-esrd)) 40,000 unit Mo@1700 SC Last administered on 02/24/19 17:37; Admin Dose 40,000 UNIT; Start 02/03/19 at 17:00 Eye Lubricant (Refresh Plus) 1 drop QID BOTH EYES Last administered on 02/25/19 12:39; Admin Dose 1 DROP; Start 02/06/19 at 09:00 Eye Lubricant (Akwa Oint) 1 applic HS LEFT EYE Last administered on 02/24/19 21:17; Admin Dose 1 APPLIC; Start 02/06/19 at 21:00 Multi-Ingredient Ointment (Aquaphor Oint 52.5 Gm) 1 applic BID TOP Last administered on 02/25/19 09:32; Admin Dose 1 APPLIC; Start 02/06/19 at 22:40 Morphine Sulfate (morphine) 0.25 mg Q4H PRN IV SEVERE PAIN LEVEL 7-10 Last administered on 02/21/19at 06:06; Admin Dose 0.25 MG; Start 02/15/19 at 11:00 Methylprednisolone Sodium Succinate (Solu-Medrol) 40 mg DAILY IV Last administered on 02/25/19 09:31; Admin Dose 40 MG; Start 02/21/19 at 09:00 Furosemide (Lasix) 40 mg DAILY IV Last administered on 02/25/19at 09:31; Admin Dose 40 MG; Start 02/22/19 at 09:00 Lansoprazole (Prevacid) 30 mg BID@0600,1800 NGT Last administered on 02/25/19at 05:19; Admin Dose 30 MG; Start 02/21/19 at 18:00 IV Flush (NS 10 ml) 10 ml PRN PRN IV IV PROTOCOL; Start 02/21/19 at 21:00 Dextrose 1,000 ml @ 70 mls/hr [id number] IV Last administered on 02/25/19at 11:23; Admin Dose 70 MLS/HR; Start 02/24/19 at 11:00 Albumin Human 100 ml @ 100 mls/hr WITH DIALYSIS PRN IV SBP <90 DURING DIALYSIS; Start 02/24/19 at 14:00 Heparin Sodium (Porcine) (Heparin (1000 Units/ml)) 2,800 unit AFTER DIALYSIS PRN CATHETER Dialysis catheter Last administered on 02/24/19at 16:11; Admin Dose 2,800 UNIT; Start 02/24/19 at 15:00 Miscellaneous Information (*Order Clarification Bulletin) MEDICATION REQUIRES CLARIFICATI... Q8H XX ; Start 02/25/19 at 15:30; Stop 02/27/19 at 15:29 Meds reviewed: Yes Allergies Coded Allergies: Penicillins (Verified Allergy, Severe, shortness of breath, 01/27/19) Sulfa (Sulfonamide Antibiotics) (Verified Allergy, Severe, Shortness of breath, 01/27/19) sulfadiazine (Verified Allergy, Severe, shortness of breath, 01/27/19) Allergies Reviewed: Yes Labs/Studies Labs Reviewed: Reviewed by anesthesiologist Result Diagram: 02/25/19 0729 02/25/19 0729 Laboratory Tests 02/25/19 07:29 Blood Bank Test 02/25/19 09:40 Antibody Screen NEGATIVE Blood Product Summary Counts Blood Type A POSITIVE Crossmatch Red Blood Cells test: N/A Studies: ECG (A-fib), CXR (There are diffuse bilateral interstitial opacities with small bilateral pleural effusions), 2D Echo (EF 60%) Pre-procedure Exam Last vitals Vital Signs Date Temp Pulse Resp B/P (MAP) Pulse Ox O2 O2 Flow FiO2 Time Delivery Rate 02/25/19 80 16:38 02/25/19 97.3 20 132/57 100 Nasal 15:48 (82) Cannula 02/25/19 3.0 13:14 02/25/19 28 08:35 Airway: Adequate thyromental dist Mallampati: Mallampati II Teeth: Normal Lung: Normal Heart: Normal ASA Physical Status ASA physical status: 3 Emergency: None Planned Anesthetic General/MAC: MAC Pre-operative Attestations Prior to commencing anesthesia and surgery, the patient was re-evaluated, there was verification of: *The patient's identity *The results of appropriate recent lab work and preoperative vital signs *The above evaluation not changing prior to induction *Anesthetic plan, risk benefits, alternative and complications discussed with patient/family; questions answered; patient/family understands, accepts and wishes to proceed. MARAH LUIS Feb 25, 2019 17:26
[2019-02-25] MEDS: TERAZOSIN 5 MG CAP NGT SCH (21:00)
[2019-02-25] MEDS: OCULAR LUBRICANT 3.5 GM OPH OINT LEFT EYE SCH (21:00)
[2019-02-25] MEDS: LATANOPROST 0.005% 2.5 ML OPH BOTH EYES SCH (21:15)
[2019-02-25] MEDS: HEPARIN 1000 UNITS/ML 10 ML INJ CATHETER PRN (23:57)
[2019-02-26] VITALS (23 sets, daily range): BP systolic 114–149; BP diastolic 55–69; PULSE 51–80; RESP 11–22
[2019-02-26] MEDS: INSULIN ASPART [NOVOLOG] 3 ML PEN SC SCH ×6 (01:00→21:15)
[2019-02-26] MEDS: DEXTROSE 10% 1,000 ML IV SCH ×2 (05:52→15:31)
[2019-02-26] MEDS: LANSOPRAZOLE 30 MG CAP NGT SCH ×2 (05:53→18:22)
[2019-02-26] MEDS: LEVOTHYROXINE 125 MCG TAB NGT SCH (05:53)
[2019-02-26] MEDS: FERROUS SULFATE 60 MG/ML 5ML CUP GTB SCH ×3 (07:55→18:21)
[2019-02-26] MEDS: FOLIC ACID 1 MG TAB PO SCH (08:12)
[2019-02-26] MEDS: MULTIVITAMINS 30 ML CUP GTB SCH (08:12)
[2019-02-26] MEDS: ALBUTEROL/IPRATROPIUM (NEB) 3 ML AMP HHN SCH ×3 (08:20→20:37)
[2019-02-26] MEDS: CARBOXYMETHYLCELLULOSE 0.5% 0.4 ML OPH BOTH EYES SCH ×4 (08:33→21:06)
[2019-02-26] MEDS: FUROSEMIDE 40 MG INJ IV SCH (08:33)
[2019-02-26] MEDS: METHYLPREDNISOLONE 40 MG INJ IV SCH (08:33)
[2019-02-26] MEDS: BALSAM PERU/CASTOR OIL 60 GM TUBE TOP SCH ×2 (08:35→21:06)
[2019-02-26] MEDS: AQUAPHOR 52.5 GM OINT TOP SCH ×2 (08:36→21:06)
[2019-02-26] MEDS: NYSTATIN/TRIAMCINOLONE 15 GM OINT TOP SCH ×2 (08:37→21:07)
--- NOTE | 2019-02-26 11:02 | CONS ---
Consult Date/Type/Reason Admit Date/Time Jan 17, 2019 at 15:58 Initial Consult Date 01/18/19 Type of Consult Pulmonary Requesting Provider: IVAN AKHTAR MD Date/Time of Note DATE: 02/26/19 TIME: 11:01 Subjective Patient appears comfortable this morning on nasal cannula O2 no respiratory distress. Pending PEG tube placement. Objective Vital Signs Date Temp Pulse Resp B/P (MAP) Pulse Ox O2 O2 Flow FiO2 Time Delivery Rate 02/26/19 51 08:38 02/26/19 3.0 08:20 02/26/19 24 100 Nasal 08:20 Cannula 02/26/19 97.4 134/69 06:58 (90) 02/26/19 31 03:55 Intake and Output 02/25/19 02/25/19 02/26/19 1515:00 23:00 07:00 IntakeIntake Total 100 ml 770 ml OutputOutput Total 1000 ml 2600 ml BalanceBalance 100 ml -230 ml -2600 ml Exam GENERAL: Elderly gentleman on nasal cannula O2 VITAL SIGNS: per chart NECK: Supple. No JVD or lymphadenopathy. CARDIAC EXAM: S1, S2. No added sounds or murmurs. CHEST: Diminished air entry bilaterally ABDOMEN: Soft, nontender. No guarding or rebound. EXTREMITIES: No cyanosis, clubbing or edema. NEUROLOGIC: Generalized weakness. No focal deficits. Vent Setting Ventilator Support Mode: AC Fraction of Inspired Oxygen pe: 31 Positive End Expiratory Pressu: 5.0 Results/Medications Result Diagram: 02/26/19 0641 02/26/19 0641 Results 24 hrs Laboratory Tests Test 02/25/19 12:37 02/25/19 17:08 02/25/19 21:05 02/26/19 01:48 Bedside Glucose 115 136 111 106 Test 02/26/19 05:51 02/26/19 06:41 02/26/19 08:32 Bedside Glucose 126 135 White Blood Count 7.7 Red Blood Count 2.81 L Hemoglobin 7.9 L Hematocrit 26.7 L Mean Corpuscular Volume 95.0 Mean Corpuscular 28.1 L Hemoglobin Mean Corpuscular 29.6 L Hemoglobin Concent Red Cell Distribution 22.5 H Width Platelet Count 151 Mean Platelet Volume 12.5 H Immature Granulocytes % 0.400 Neutrophils % 73.6 Lymphocytes % 20.6 Monocytes % 5.2 Eosinophils % 0.1 Basophils % 0.1 Nucleated Red Blood 1.0 H Cells % Immature Granulocytes # 0.030 Neutrophils # 5.7 Lymphocytes # 1.6 Monocytes # 0.4 Eosinophils # 0.0 Basophils # 0.0 Nucleated Red Blood 0.1 H Cells # Prothrombin Time 17.8 H Prothrombin Time Ratio 1.4 INR International 1.46 Normalized Ratio Activated 33.6 Partial Thromboplast Time Sodium Level 139 Potassium Level 3.5 Chloride Level 104 Carbon Dioxide Level 31 Anion Gap 4 L Blood Urea Nitrogen 40 #H Creatinine 1.12 Est Glomerular Filtrat Rate mL/min Glucose Level 105 # Calcium Level 8.2 L Medications Current Medications Acetaminophen (Tylenol Tab) 650 mg Q4H PRN PO PAIN Last administered on 02/11/19at 21:29; Admin Dose 650 MG; Start 01/17/19 at 18:17 Miscellaneous Information (Pending [facility] Order For Wound Care) This patient ramirez... PRN PRN XX WOUND CARE; Start 01/17/19 at 18:17 Albuterol/ Ipratropium (Duoneb) 3 ml Q2H RESP THERAPY PRN HHN SHORTNESS OF BREATH Last administered on 02/13/19at 05:52; Admin Dose 3 ML; Start 01/17/19 at 18:17 Bisacodyl (Dulcolax) 10 mg BID PRN PO CONSTIPATION; Start 01/17/19 at 18:17; Status Hold Folic Acid (Folic Acid) 1 mg DAILY PO Last administered on 02/24/19 09:21; Admin Dose 1 MG; Start 01/17/19 at 18:17 Latanoprost (Xalatan) 1 drop HS BOTH EYES Last administered on 02/25/19at 21:15; Admin Dose 1 DROP; Start 01/17/19 at 18:17 Nitroglycerin (Nitroglycerin (Sl Tab) 0.4 Mg) 0.4 tab Q5M PRN SL CHEST PAIN; Start 01/17/19 at 18:17 IV Flush (NS 3 ml) 3 ml PER PROTOCOL IV ; Start 01/17/19 at 18:17 Glucose (Glutose) 15 gm Q15M PRN PO DECREASED GLUCOSE; Start 01/17/19 at 18:17 Glucose (Glutose) 22.5 gm Q15M PRN PO DECREASED GLUCOSE; Start 01/17/19 at 18:17 Dextrose (D50w Syringe) 25 ml Q15M PRN IV DECREASED GLUCOSE Last administered on 02/24/19at 04:55; Admin Dose 25 ML; Start 01/17/19 at 18:17 Dextrose (D50w Syringe) 50 ml Q15M PRN IV DECREASED GLUCOSE; Start 01/17/19 at 18:17 Glucagon (Glucagen) 1 mg Q15M PRN IM DECREASED GLUCOSE Last administered on 02/11/19at 17:55; Admin Dose 1 MG; Start 01/17/19 at 18:17 Glucose (Glutose) 15 gm Q15M PRN BUCCAL DECREASED GLUCOSE; Start 01/17/19 at 18:17 Bisacodyl (Dulcolax Supp) 10 mg DAILY PRN [place] CONSTIPATION; Start 01/17/19 at 18:17 Zinc Acetate/ Diphenhydramine (Benadryl 2% Cr) 1 applic Q6H PRN TOP ITCHING Last administered on 02/21/19at 20:38; Admin Dose 1 APPLIC; Start 01/19/19 at 16:37 IV Flush (NS 10 ml) 10 ml PRN PRN IV IV PROTOCOL; Start 01/20/19 at 14:30 Cyanocobalamin (Vitamin B12 Inj) 1,000 mcg Q7D IM Last administered on 02/24/19at 09:21; Admin Dose 1,000 MCG; Start 02/03/19 at 09:00 Metoprolol Tartrate (Lopressor) 5 mg Q4H PRN IV HR>110 Hold SBP<100; Start 01/26/19 at 14:30 Enoxaparin Sodium (Lovenox) 60 mg DAILY SC Last administered on 02/03/19at 08:06; Admin Dose 60 MG; Start 01/28/19 at 09:00; Status Hold Docusate Sodium (Colace Liquid Cup) 100 mg BID NGT ; Start 01/27/19 at 22:00; Status Hold Terazosin HCl (Hytrin) 10 mg HS NGT Last administered on 02/24/19at 21:17; Admin Dose 10 MG; Start 01/28/19 at 21:00 Levothyroxine Sodium (Synthroid) 125 mcg BEFORE BREAKFAST NGT Last administered on 02/25/19at 05:19; Admin Dose 125 MCG; Start 01/28/19 at 07:00 Ferrous Sulfate (Feosol Liquid Cup) 300 mg WITH MEALS GTB Last administered on 02/24/19 17:35; Admin Dose 300 MG; Start 01/28/19 at 11:30 Multivitamins (Multivitamin) 30 ml DAILY GTB Last administered on 02/24/19 09:22; Admin Dose 30 ML; Start 01/28/19 at 11:00 Nystatin/ Triamcinolone Acetonide (Mycolog Oint) 1 applic BID TOP Last administered on 02/26/19 08:37; Admin Dose 1 APPLIC; Start 01/28/19 at 22:30 Insulin Aspart (Novolog Insulin Pen) NOVOLOG *MILD* ALGORI... Q4 SC Last administered on 02/23/19 12:30; Admin Dose 1 UNIT; Start 01/29/19 at 05:00 Albuterol/ Ipratropium (Duoneb) 3 ml Q6HWA RESP THERAPY HHN Last administered on 02/26/19 08:20; Admin Dose 3 ML; Start 01/29/19 at 14:00 Epoetin Dae-epbx (RETACRIT(non-esrd)) 40,000 unit Mo@1700 SC Last administered on 02/24/19 17:37; Admin Dose 40,000 UNIT; Start 02/03/19 at 17:00 Eye Lubricant (Refresh Plus) 1 drop QID BOTH EYES Last administered on 02/26/19 08:33; Admin Dose 1 DROP; Start 02/06/19 at 09:00 Eye Lubricant (Akwa Oint) 1 applic HS LEFT EYE Last administered on 02/25/19 21:00; Admin Dose 1 APPLIC; Start 02/06/19 at 21:00 Multi-Ingredient Ointment (Aquaphor Oint 52.5 Gm) 1 applic BID TOP Last administered on 02/26/19 08:36; Admin Dose 1 APPLIC; Start 02/06/19 at 22:40 Morphine Sulfate (morphine) 0.25 mg Q4H PRN IV SEVERE PAIN LEVEL 7-10 Last administered on 02/21/19 06:06; Admin Dose 0.25 MG; Start 02/15/19 at 11:00 Methylprednisolone Sodium Succinate (Solu-Medrol) 40 mg DAILY IV Last administered on 02/26/19 08:33; Admin Dose 40 MG; Start 02/21/19 at 09:00 Furosemide (Lasix) 40 mg DAILY IV Last administered on 02/26/19at 08:33; Admin Dose 40 MG; Start 02/22/19 at 09:00 Lansoprazole (Prevacid) 30 mg BID@0600,1800 NGT Last administered on 02/25/19at 05:19; Admin Dose 30 MG; Start 02/21/19 at 18:00 IV Flush (NS 10 ml) 10 ml PRN PRN IV IV PROTOCOL; Start 02/21/19 at 21:00 Dextrose 1,000 ml @ 70 mls/hr [id number] IV Last administered on 02/26/19at 05:52; Admin Dose 70 MLS/HR; Start 02/24/19 at 11:00 Albumin Human 100 ml @ 100 mls/hr WITH DIALYSIS PRN IV SBP <90 DURING DIALYSIS Last administered on 02/25/19at 21:52; Admin Dose 100 MLS/HR; Start 02/24/19 at 14:00 Heparin Sodium (Porcine) (Heparin (1000 Units/ml)) 2,800 unit AFTER DIALYSIS PRN CATHETER Dialysis catheter Last administered on 02/25/19at 23:57; Admin Dose 2,800 UNIT; Start 02/24/19 at 15:00 Miscellaneous Information (*Order Clarification Bulletin) MEDICATION REQUIRES CLARIFICATI... Q8H XX ; Start 02/25/19 at 15:30; Stop 02/27/19 at 15:29 Assessment/Plan Hospital Course (Demo Recall) IMP: 1. s/p Acute hypoxemic respiratory failure likely secondary to combination of volume overload and pneumonia, now requiring bilevel ventilation 2. Encephalopathy underlying dementia versus toxic metabolic, appears to be slowly improving possibly secondary to elevated sodium. 3. Valvular heart disease 4. Severe dysphagia 5. Status post septic shock likely secondary to above, persistent leukocytosis. 6. Anemia, no active GI bleeding 7. Skin diffuse excoriating skin lesion unclear etiology not consistent with history of "red man" syndrome. or pemphigus. Likely drug reaction. 8. Anemia 9. Status post septic shock RECS: 1. Trial of nasal cannula O2 2. Continue broad-spectrum antibiotics 3. Infectious work-up as per ID 4. Monitor H&H 5. Renal recommendations 6. G-tube placement DC planning after G-tube. DIANA MCRAE MD, [facility] Feb 26, 2019 11:02
[2019-02-26] MEDS ORDERED: FENTAnyl 50 MCG/ML VIAL ONE (13:01)
[2019-02-26] MEDS ORDERED: ETOMIDATE 20 MG INJ ONE (13:01)
[2019-02-26] MEDS ORDERED: LIDOCAINE 2% (SDV) 5 ML INJ ONE (13:01)
[2019-02-26] MEDS ORDERED: CIPROFLOXACIN 400MG/D5W 200 ML ONE (13:02)
[2019-02-26] MEDS ORDERED: FENTAnyl 50 MCG/ML VIAL IV PRN (14:00)
[2019-02-26] MEDS ORDERED: HYDROmorphONE 1 MG/5 ML IV SYRINGE IV PRN (14:00)
[2019-02-26] MEDS ORDERED: ONDANSETRON 4 MG INJ IV PRN (14:00)
--- NOTE | 2019-02-26 14:01 | PAC ---
Date/Time of Note Date/Time of Note DATE: 02/26/19 TIME: 14:00 Post-Anesthesia Notes Post-Anesthesia Note Last documented vital signs Vital Signs Date Temp Pulse Resp B/P (MAP) Pulse Ox O2 O2 Flow FiO2 Time Delivery Rate 02/26/19 60 12:57 02/26/19 98.9 20 145/65 100 Nasal 11:49 (91) Cannula 02/26/19 3.0 08:20 02/26/19 31 03:55 Activity: WNL Respiratory function: WNL Cardiovascular function: WNL Mental status: Baseline Pain reasonably controlled: Yes Hydration appropriate: Yes Nausea/Vomiting absent: Yes Comments BP: 137/66 HR: 61 RR: 15 T: 97.9 SaO2: 100% BALJIT WEBB MD Feb 26, 2019 14:01
--- NOTE | 2019-02-26 15:09 | CONS ---
Assessment/Plan Assessment/Plan Assessment/Plan (Recall) 88 yo M with multiple comorbidities who initially presented for evaluation of hiccups. He was noted to become acutely altered... for which neurology is consulted. He has been transferred to the ICU on several occasions due to ams in the context of respiratory distress/hemodynamic instability and ? seizures.. The clinical picture suggests an acute toxic-metabolic encephalopathy.. Meningoencephalitis is, though, not entirely excluded. MRI brain is without acute ischemia, though notable for chronic infarcts. EEG was without ongoing epileptiform activity LP for CSF valuation was declined by medical decision makers. P: OK to Cont Keppra 500 BID for now Ativan IV PRN prolonged seizure (> 5 min) Agree w/ ASA/Lipitor daily pending the above Limit sedating medications where possible Other medical management per primary Will follow clinically Consultation Date/Type/Reason Admit Date/Time Jan 17, 2019 at 15:58 Type of Consult Neurology Requesting Provider: IVAN AKHTAR MD Date/Time of Note DATE: 02/26/19 TIME: 15:09 24 HR Interval Summary Free Text/Dictation Continues acute care. S/p PEG placement. Exam/Review of Systems Exam Vitals Vital Signs Date Temp Pulse Resp B/P (MAP) Pulse Ox O2 O2 Flow FiO2 Time Delivery Rate 02/26/19 60 13 144/61 100 Nasal 14:42 (88) Cannula 02/26/19 97.9 13:57 02/26/19 2.0 13:10 02/26/19 31 03:55 Intake and Output 02/25/19 02/25/19 02/26/19 1515:00 23:00 07:00 IntakeIntake Total 100 ml 770 ml OutputOutput Total 1000 ml 2600 ml BalanceBalance 100 ml -230 ml -2600 ml Exam PE: Gen Appearance: No Apparent Distress HEENT: Normocephalic; on nasal cannula Cardiovascular: Regular rate Abdomen: Soft Extremities: Dry. NE: The patient was lethargic and sparsely verbal. Did not follow commands. Cranial nerve examination was limited by mental status. Pupils were equal and reactive to light. There was no afferent pupillary defect. Funduscopic examination was limited. Face was grossly symmetric. Tone was normal. Muscle bulk was normal. I did not see fasciculations. The [facility] withdrew his extremities to noxious stimuli. Coordination and gait testing was limited by mental status. Arm and leg reflexes were within normal limits and symmetric. Gray's sign was absent. Plantar responses were flexor. Results Result Diagram: 02/26/19 0641 02/26/19 0641 Results 24hrs Laboratory Tests Test 02/25/19 17:08 02/25/19 21:05 02/26/19 01:48 02/26/19 05:51 Bedside Glucose 136 111 106 126 Test 02/26/19 06:41 02/26/19 08:32 02/26/19 13:18 White Blood Count 7.7 Red Blood Count 2.81 L Hemoglobin 7.9 L Hematocrit 26.7 L Mean Corpuscular Volume 95.0 Mean Corpuscular 28.1 L Hemoglobin Mean Corpuscular 29.6 L Hemoglobin Concent Red Cell Distribution 22.5 H Width Platelet Count 151 Mean Platelet Volume 12.5 H Immature Granulocytes % 0.400 Neutrophils % 73.6 Lymphocytes % 20.6 Monocytes % 5.2 Eosinophils % 0.1 Basophils % 0.1 Nucleated Red Blood 1.0 H Cells % Immature Granulocytes # 0.030 Neutrophils # 5.7 Lymphocytes # 1.6 Monocytes # 0.4 Eosinophils # 0.0 Basophils # 0.0 Nucleated Red Blood 0.1 H Cells # Prothrombin Time 17.8 H Prothrombin Time Ratio 1.4 INR International 1.46 Normalized Ratio Activated 33.6 Partial Thromboplast Time Sodium Level 139 Potassium Level 3.5 Chloride Level 104 Carbon Dioxide Level 31 Anion Gap 4 L Blood Urea Nitrogen 40 #H Creatinine 1.12 Est Glomerular Filtrat Rate mL/min Glucose Level 105 # Calcium Level 8.2 L Bedside Glucose 135 136 Medications Medication Current Medications Acetaminophen (Tylenol Tab) 650 mg Q4H PRN PO PAIN Last administered on 02/11/19at 21:29; Admin Dose 650 MG; Start 01/17/19 at 18:17 [facility]isc[facility] This patient ramirez... PRN PRN XX WOUND CARE; Start 01/17/19 at 18:17 Albuterol/ Ipratropium (Duoneb) 3 ml Q2H RESP THERAPY PRN HHN SHORTNESS OF BREATH Last administered on 02/13/19at 05:52; Admin Dose 3 ML; Start 01/17/19 at 18:17 Bisacodyl (Dulcolax) 10 mg BID PRN PO CONSTIPATION; Start 01/17/19 at 18:17; Status Hold Folic Acid (Folic Acid) 1 mg DAILY PO Last administered on 02/24/19 09:21; Admin Dose 1 MG; Start 01/17/19 at 18:17 Latanoprost (Xalatan) 1 drop HS BOTH EYES Last administered on 02/25/19 21:15; Admin Dose 1 DROP; Start 01/17/19 at 18:17 Nitroglycerin (Nitroglycerin (Sl Tab) 0.4 Mg) 0.4 tab Q5M PRN SL CHEST PAIN; Start 01/17/19 at 18:17 IV Flush (NS 3 ml) 3 ml PER PROTOCOL IV ; Start 01/17/19 at 18:17 Glucose (Glutose) 15 gm Q15M PRN PO DECREASED GLUCOSE; Start 01/17/19 at 18:17 Glucose (Glutose) 22.5 gm Q15M PRN PO DECREASED GLUCOSE; Start 01/17/19 at 18:17 Dextrose (D50w Syringe) 25 ml Q15M PRN IV DECREASED GLUCOSE Last administered on 02/24/19at 04:55; Admin Dose 25 ML; Start 01/17/19 at 18:17 Dextrose (D50w Syringe) 50 ml Q15M PRN IV DECREASED GLUCOSE; Start 01/17/19 at 18:17 Glucagon (Glucagen) 1 mg Q15M PRN IM DECREASED GLUCOSE Last administered on 02/11/19at 17:55; Admin Dose 1 MG; Start 01/17/19 at 18:17 Glucose (Glutose) 15 gm Q15M PRN BUCCAL DECREASED GLUCOSE; Start 01/17/19 at 18:17 Bisacodyl (Dulcolax Supp) 10 mg DAILY PRN [place] CONSTIPATION; Start 01/17/19 at 18:17 Zinc Acetate/ Diphenhydramine (Benadryl 2% Cr) 1 applic Q6H PRN TOP ITCHING Last administered on 02/21/19at 20:38; Admin Dose 1 APPLIC; Start 01/19/19 at 16:37 IV Flush (NS 10 ml) 10 ml PRN PRN IV IV PROTOCOL; Start 01/20/19 at 14:30 Cyanocobalamin (Vitamin B12 Inj) 1,000 mcg Q7D IM Last administered on 02/24/19 09:21; Admin Dose 1,000 MCG; Start 02/03/19 at 09:00 Metoprolol Tartrate (Lopressor) 5 mg Q4H PRN IV HR>110 Hold SBP<100; Start 01/26/19 at 14:30 Enoxaparin Sodium (Lovenox) 60 mg DAILY SC Last administered on 02/03/19 08:06; Admin Dose 60 MG; Start 01/28/19 at 09:00; Status Hold Docusate Sodium (Colace Liquid Cup) 100 mg BID NGT ; Start 01/27/19 at 22:00; Status Hold Terazosin HCl (Hytrin) 10 mg HS NGT Last administered on 02/24/19 21:17; Admin Dose 10 MG; Start 01/28/19 at 21:00 Levothyroxine Sodium (Synthroid) 125 mcg BEFORE BREAKFAST NGT Last administered on 02/25/19 05:19; Admin Dose 125 MCG; Start 01/28/19 at 07:00 Ferrous Sulfate (Feosol Liquid Cup) 300 mg WITH MEALS GTB Last administered on 02/24/19 17:35; Admin Dose 300 MG; Start 01/28/19 at 11:30 Multivitamins (Multivitamin) 30 ml DAILY GTB Last administered on 02/24/19 09:22; Admin Dose 30 ML; Start 01/28/19 at 11:00 Nystatin/ Triamcinolone Acetonide (Mycolog Oint) 1 applic BID TOP Last administered on 02/26/19 08:37; Admin Dose 1 APPLIC; Start 01/28/19 at 22:30 Insulin Aspart (Novolog Insulin Pen) NOVOLOG *MILD* ALGORI... Q4 SC Last administered on 02/23/19 12:30; Admin Dose 1 UNIT; Start 01/29/19 at 05:00 Albuterol/ Ipratropium (Duoneb) 3 ml Q6HWA RESP THERAPY HHN Last administered on 02/26/19 08:20; Admin Dose 3 ML; Start 01/29/19 at 14:00 Epoetin Dae-epbx (RETACRIT(non-esrd)) 40,000 unit Mo@1700 SC Last administered on 02/24/19 17:37; Admin Dose 40,000 UNIT; Start 02/03/19 at 17:00 Eye Lubricant (Refresh Plus) 1 drop QID BOTH EYES Last administered on 02/26/19 08:33; Admin Dose 1 DROP; Start 02/06/19 at 09:00 Eye Lubricant (Akwa Oint) 1 applic HS LEFT EYE Last administered on 02/25/19 21:00; Admin Dose 1 APPLIC; Start 02/06/19 at 21:00 Multi-Ingredient Ointment (Aquaphor Oint 52.5 Gm) 1 applic BID TOP Last administered on 02/26/19 08:36; Admin Dose 1 APPLIC; Start 02/06/19 at 22:40 Morphine Sulfate (morphine) 0.25 mg Q4H PRN IV SEVERE PAIN LEVEL 7-10 Last administered on 02/21/19 06:06; Admin Dose 0.25 MG; Start 02/15/19 at 11:00 Methylprednisolone Sodium Succinate (Solu-Medrol) 40 mg DAILY IV Last administered on 02/26/19 08:33; Admin Dose 40 MG; Start 02/21/19 at 09:00 Furosemide (Lasix) 40 mg DAILY IV Last administered on 02/26/19 08:33; Admin Dose 40 MG; Start 02/22/19 at 09:00 Lansoprazole (Prevacid) 30 mg BID@0600,1800 NGT Last administered on 02/25/19 05:19; Admin Dose 30 MG; Start 02/21/19 at 18:00 IV Flush (NS 10 ml) 10 ml PRN PRN IV IV PROTOCOL; Start 02/21/19 at 21:00 Dextrose 1,000 ml @ 70 mls/hr [id number] IV Last administered on 02/26/19 05:52; Admin Dose 70 MLS/HR; Start 02/24/19 at 11:00 Albumin Human 100 ml @ 100 mls/hr WITH DIALYSIS PRN IV SBP <90 DURING DIALYSIS Last administered on 02/25/19 21:52; Admin Dose 100 MLS/HR; Start 02/24/19 at 14:00 Heparin Sodium (Porcine) (Heparin (1000 Units/ml)) 2,800 unit AFTER DIALYSIS PRN CATHETER Dialysis catheter Last administered on 02/25/19 23:57; Admin Dose 2,800 UNIT; Start 02/24/19 at 15:00 Miscellaneous Information (*Order Clarification Bulletin) MEDICATION REQUIRES CLARIFICATI... Q8H XX ; Start 02/25/19 at 15:30; Stop 02/27/19 at 15:29 Hydromorphone HCl (Dilaudid) 0.2 mg PACU PRN IV PAIN; Start 02/26/19 at 14:00; Stop 02/26/19 at 20:00 Fentanyl (Sublimaze) 25 mcg PACU ORDER PRN IV MILD PAIN 1-3; Start 02/26/19 at 14:00; Stop 02/26/19 at 20:00 Ondansetron HCl (Zofran Inj) 4 mg PACU ORDER PRN IV NAUSEA/VOMITING; Start 02/26/19 at 14:00; Stop 02/26/19 at 20:00 NEGRA CORONA NP Feb 26, 2019 15:09
--- NOTE | 2019-02-26 15:11 | CONS ---
Assessment/Plan Assessment/Plan Hospital Course (Demo Recall) IMPRESSION: 1. Atrial fibrillation, currently rate controlled.-off systemic anticoagulation due to recurrent anemia and GIB when on anticoagulation and acute worsening requiring transfusions. Having some pauses> 3 seconds and HR down to high 30's off joseph agents. ? resp vs primary cardiac. Still has intermittently with stable BP 2. Possible congestive heart failure by chest x-ray, which will be diastolic, acute on chronic by most recent echo with an EF of 60%. 3. Tricuspid regurgitation, moderate by most recent echo. 4. Acute on chronic renal failure-mild worsening 5. Possible pneumonia. 6. History of coronary artery disease, status post coronary artery bypass graft surgery. 7. Dyslipidemia. 8. Rheumatoid arthritis. 9. Groin cellulitis. 10. Anemia-worsening again today. s/p endoscopy during this admission 11. Diabetes mellitus. 12. Sepsis/leukocytosis 14. abdominal mass 15. Rash-all over body with skin chaffing at this time, probable drug reaction- significantly improved 16. Encephalopathy-ongoing. MRI negative for acute CVA 17. coagulopathy-ongoing and mildly improved at last check Recc: -on tele -serial ecg's -Continue statin -Continue broad spectrum abx's and f/u cx data -Contineu topical treatment to skin -off anticoagulation secondary to anemia/GIB requiring transfusions recurrently when challenged -BB d/c'd given rashel and pauses -transfuse PRBC's as necessary -Now on HD for volume control and daily IV lasix as tolerated -now on steroids/bronchodilators follow resp status closely. Use BIPAP as necessary -Now full code but speaking with family about direction of care and code status -For PEG placement today Consultation Date/Type/Reason Admit Date/Time Jan 17, 2019 at 15:58 Initial Consult Date 01/18/19 Type of Consult Cardiology Reason for Consultation CHF Requesting Provider: IVAN AKHTAR MD Date/Time of Note DATE: 02/26/19 TIME: 15:03 Exam/Review of Systems Vital Signs Vitals Vital Signs Date Temp Pulse Resp B/P (MAP) Pulse Ox O2 O2 Flow FiO2 Time Delivery Rate 02/26/19 60 13 144/61 100 Nasal 14:42 (88) Cannula 02/26/19 97.9 13:57 02/26/19 2.0 13:10 02/26/19 31 03:55 Intake and Output 02/25/19 02/25/19 02/26/19 1515:00 23:00 07:00 IntakeIntake Total 100 ml 770 ml OutputOutput Total 1000 ml 2600 ml BalanceBalance 100 ml -230 ml -2600 ml Exam Exam Review of Systems: CONSTITUTIONAL: No fevers, chills. PULMONARY: No sob CARDIOVASCULAR: No chest pain/palpitations GASTROINTESTINAL: No nausea/vomiting. GENITOURINARY: No hematuria/dysuria. MUSCULOSKELETAL: No myagias/arthalgias. PSYCHIATRIC: The patient denies depression. NEUROLOGIC: No weakness Constitutional: alert Psych: no complaints Head: normocephalic ENMT: mucosa pink and moist Neck: supple, jvd (9 cm water) Respiratory: diminished breath sounds (at bases/B) Cardiovascular: regular rate and rhythm Gastrointestinal: soft, non-tender Musculoskeletal: muscle weakness (generalized) Extremities: edema (none) Labs Result Diagram: 02/26/19 0641 02/26/19 0641 Results 24hrs Laboratory Tests Test 02/25/19 17:08 02/25/19 21:05 02/26/19 01:48 02/26/19 05:51 Bedside Glucose 136 111 106 126 Test 02/26/19 06:41 02/26/19 08:32 02/26/19 13:18 White Blood Count 7.7 Red Blood Count 2.81 L Hemoglobin 7.9 L Hematocrit 26.7 L Mean Corpuscular Volume 95.0 Mean Corpuscular 28.1 L Hemoglobin Mean Corpuscular 29.6 L Hemoglobin Concent Red Cell Distribution 22.5 H Width Platelet Count 151 Mean Platelet Volume 12.5 H Immature Granulocytes % 0.400 Neutrophils % 73.6 Lymphocytes % 20.6 Monocytes % 5.2 Eosinophils % 0.1 Basophils % 0.1 Nucleated Red Blood 1.0 H Cells % Immature Granulocytes # 0.030 Neutrophils # 5.7 Lymphocytes # 1.6 Monocytes # 0.4 Eosinophils # 0.0 Basophils # 0.0 Nucleated Red Blood 0.1 H Cells # Prothrombin Time 17.8 H Prothrombin Time Ratio 1.4 INR International 1.46 Normalized Ratio Activated 33.6 Partial Thromboplast Time Sodium Level 139 Potassium Level 3.5 Chloride Level 104 Carbon Dioxide Level 31 Anion Gap 4 L Blood Urea Nitrogen 40 #H Creatinine 1.12 Est Glomerular Filtrat Rate mL/min Glucose Level 105 # Calcium Level 8.2 L Bedside Glucose 135 136 Medications Medications Current Medications Acetaminophen (Tylenol Tab) 650 mg Q4H PRN PO PAIN Last administered on 02/11/19at 21:29; Admin Dose 650 MG; Start 01/17/19 at 18:17 Miscellaneous Information [facility] This patient ramirez... PRN PRN XX WOUND CARE; Start 01/17/19 at 18:17 Albuterol/ Ipratropium (Duoneb) 3 ml Q2H RESP THERAPY PRN HHN SHORTNESS OF BREATH Last administered on 02/13/19at 05:52; Admin Dose 3 ML; Start 01/17/19 at 18:17 Bisacodyl (Dulcolax) 10 mg BID PRN PO CONSTIPATION; Start 01/17/19 at 18:17; Status Hold Folic Acid (Folic Acid) 1 mg DAILY PO Last administered on 02/24/19 09:21; Admin Dose 1 MG; Start 01/17/19 at 18:17 Latanoprost (Xalatan) 1 drop HS BOTH EYES Last administered on 02/25/19at 21:15; Admin Dose 1 DROP; Start 01/17/19 at 18:17 Nitroglycerin (Nitroglycerin (Sl Tab) 0.4 Mg) 0.4 tab Q5M PRN SL CHEST PAIN; Start 01/17/19 at 18:17 IV Flush (NS 3 ml) 3 ml PER PROTOCOL IV ; Start 01/17/19 at 18:17 Glucose (Glutose) 15 gm Q15M PRN PO DECREASED GLUCOSE; Start 01/17/19 at 18:17 Glucose (Glutose) 22.5 gm Q15M PRN PO DECREASED GLUCOSE; Start 01/17/19 at 18:17 Dextrose (D50w Syringe) 25 ml Q15M PRN IV DECREASED GLUCOSE Last administered on 02/24/19 04:55; Admin Dose 25 ML; Start 01/17/19 at 18:17 Dextrose (D50w Syringe) 50 ml Q15M PRN IV DECREASED GLUCOSE; Start 01/17/19 at 18:17 Glucagon (Glucagen) 1 mg Q15M PRN IM DECREASED GLUCOSE Last administered on 02/11/19at 17:55; Admin Dose 1 MG; Start 01/17/19 at 18:17 Glucose (Glutose) 15 gm Q15M PRN BUCCAL DECREASED GLUCOSE; Start 01/17/19 at 18:17 Bisacodyl (Dulcolax Supp) 10 mg DAILY PRN [place] CONSTIPATION; Start 01/17/19 at 18:17 Zinc Acetate/ Diphenhydramine (Benadryl 2% Cr) 1 applic Q6H PRN TOP ITCHING Last administered on 02/21/19at 20:38; Admin Dose 1 APPLIC; Start 01/19/19 at 16:37 IV Flush (NS 10 ml) 10 ml PRN PRN IV IV PROTOCOL; Start 01/20/19 at 14:30 Cyanocobalamin (Vitamin B12 Inj) 1,000 mcg Q7D IM Last administered on 02/24/19 09:21; Admin Dose 1,000 MCG; Start 02/03/19 at 09:00 Metoprolol Tartrate (Lopressor) 5 mg Q4H PRN IV HR>110 Hold SBP<100; Start 01/26/19 at 14:30 Enoxaparin Sodium (Lovenox) 60 mg DAILY SC Last administered on 02/03/19 08:06; Admin Dose 60 MG; Start 01/28/19 at 09:00; Status Hold Docusate Sodium (Colace Liquid Cup) 100 mg BID NGT ; Start 01/27/19 at 22:00; Status Hold Terazosin HCl (Hytrin) 10 mg HS NGT Last administered on 02/24/19 21:17; Admin Dose 10 MG; Start 01/28/19 at 21:00 Levothyroxine Sodium (Synthroid) 125 mcg BEFORE BREAKFAST NGT Last administered on 02/25/19 05:19; Admin Dose 125 MCG; Start 01/28/19 at 07:00 Ferrous Sulfate (Feosol Liquid Cup) 300 mg WITH MEALS GTB Last administered on 02/24/19 17:35; Admin Dose 300 MG; Start 01/28/19 at 11:30 Multivitamins (Multivitamin) 30 ml DAILY GTB Last administered on 02/24/19 09:22; Admin Dose 30 ML; Start 01/28/19 at 11:00 Nystatin/ Triamcinolone Acetonide (Mycolog Oint) 1 applic BID TOP Last administered on 02/26/19 08:37; Admin Dose 1 APPLIC; Start 01/28/19 at 22:30 Insulin Aspart (Novolog Insulin Pen) NOVOLOG *MILD* ALGORI... Q4 SC Last administered on 02/23/19 12:30; Admin Dose 1 UNIT; Start 01/29/19 at 05:00 Albuterol/ Ipratropium (Duoneb) 3 ml Q6HWA RESP THERAPY HHN Last administered on 02/26/19 08:20; Admin Dose 3 ML; Start 01/29/19 at 14:00 Epoetin Dae-epbx (RETACRIT(non-esrd)) 40,000 unit Mo@1700 SC Last administered on 02/24/19 17:37; Admin Dose 40,000 UNIT; Start 02/03/19 at 17:00 Eye Lubricant (Refresh Plus) 1 drop QID BOTH EYES Last administered on 02/26/19 08:33; Admin Dose 1 DROP; Start 02/06/19 at 09:00 Eye Lubricant (Akwa Oint) 1 applic HS LEFT EYE Last administered on 02/25/19 21:00; Admin Dose 1 APPLIC; Start 02/06/19 at 21:00 Multi-Ingredient Ointment (Aquaphor Oint 52.5 Gm) 1 applic BID TOP Last administered on 02/26/19 08:36; Admin Dose 1 APPLIC; Start 02/06/19 at 22:40 Morphine Sulfate (morphine) 0.25 mg Q4H PRN IV SEVERE PAIN LEVEL 7-10 Last administered on 02/21/19 06:06; Admin Dose 0.25 MG; Start 02/15/19 at 11:00 Methylprednisolone Sodium Succinate (Solu-Medrol) 40 mg DAILY IV Last administered on 02/26/19 08:33; Admin Dose 40 MG; Start 02/21/19 at 09:00 Furosemide (Lasix) 40 mg DAILY IV Last administered on 02/26/19 08:33; Admin Dose 40 MG; Start 02/22/19 at 09:00 Lansoprazole (Prevacid) 30 mg BID@0600,1800 NGT Last administered on 02/25/19 05:19; Admin Dose 30 MG; Start 02/21/19 at 18:00 IV Flush (NS 10 ml) 10 ml PRN PRN IV IV PROTOCOL; Start 02/21/19 at 21:00 Dextrose 1,000 ml @ 70 mls/hr [id number] IV Last administered on 02/26/19at 05:52; Admin Dose 70 MLS/HR; Start 02/24/19 at 11:00 Albumin Human 100 ml @ 100 mls/hr WITH DIALYSIS PRN IV SBP <90 DURING DIALYSIS Last administered on 02/25/19at 21:52; Admin Dose 100 MLS/HR; Start 02/24/19 at 14:00 Heparin Sodium (Porcine) (Heparin (1000 Units/ml)) 2,800 unit AFTER DIALYSIS PRN CATHETER Dialysis catheter Last administered on 02/25/19at 23:57; Admin Dose 2,800 UNIT; Start 02/24/19 at 15:00 Miscellaneous Information (*Order Clarification Bulletin) MEDICATION REQUIRES CLARIFICATI... Q8H XX ; Start 02/25/19 at 15:30; Stop 02/27/19 at 15:29 Hydromorphone HCl (Dilaudid) 0.2 mg PACU PRN IV PAIN; Start 02/26/19 at 14:00; Stop 02/26/19 at 20:00 Fentanyl (Sublimaze) 25 mcg PACU ORDER PRN IV MILD PAIN 1-3; Start 02/26/19 at 14:00; Stop 02/26/19 at 20:00 Ondansetron HCl (Zofran Inj) 4 mg PACU ORDER PRN IV NAUSEA/VOMITING; Start 02/26/19 at 14:00; Stop 02/26/19 at 20:00 MARJORIE JAIN 5, 2019 15:11
--- NOTE | 2019-02-26 15:58 | CONS ---
Assessment/Plan Assessment/Plan Hospital Course (Demo Recall) No events Antimicrobials: none Indwelling: PICC Wade catheter, NG tube, right femoral Yogesh Allergy: Penicillin, sulfa Physical examination: Obese well-developed chronically ill-appearing - [place] man who is lethargic, in no distress. Head atraumatic normocephalic sclera nonicteric. Neck is supple chest rise symmetrical breath sounds diminished bases. Heart: S1-S2. Abdomen obese soft bowel sounds present extremities without cyanosis, bilateral edema Assessment: 1. S/p sepsis with shock 2. Acute hypoxemic respiratory failure, likely ongoing aspiration 2. Acute encephalopathy 3. S/p seizures 4. S/p Healthcare acquired pneumonia==> treated 5. Coronary artery disease/history of CABG 6. Advanced rheumatoid arthritis 5. Chronic atrial fibrillation 6. Diabetes 7. BPH 9. Acute on chronic anemia===> s/p EGD/colonoscopy 01/09/19 10. Status post right epididymitis 11. Pancreatic lesion per CT, unlikely neoplasm per oncology notes 12. 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 Skin lesions, s/p punch bx, pathology consistent with allergic reaction 14. Acute renal failure 15. DNR/DNI Plan: Remains stable off antibiotics, continue present care, repeat cx's prn, hemodialysis per renal Consultation Date/Type/Reason Admit Date/Time Jan 17, 2019 at 15:58 Initial Consult Date 01/18/19 Type of Consult id Requesting Provider: IVAN AKHTAR MD Date/Time of Note DATE: 02/26/19 TIME: 15:58 Exam/Review of Systems Exam Vitals Vital Signs Date Temp Pulse Resp B/P (MAP) Pulse Ox O2 O2 Flow FiO2 Time Delivery Rate 02/26/19 Nasal 15:06 Cannula 02/26/19 62 14 144/61 100 14:57 (88) 02/26/19 97.9 13:57 02/26/19 2.0 13:10 02/26/19 31 03:55 Intake and Output 02/25/19 02/25/19 02/26/19 1515:00 23:00 07:00 IntakeIntake Total 100 ml 770 ml OutputOutput Total 1000 ml 2600 ml BalanceBalance 100 ml -230 ml -2600 ml Results Result Diagram: 02/26/19 0641 02/26/19 0641 Results 24hrs Laboratory Tests Test 02/25/19 17:08 02/25/19 21:05 02/26/19 01:48 02/26/19 05:51 Bedside Glucose 136 111 106 126 Test 02/26/19 06:41 02/26/19 08:32 02/26/19 13:18 02/26/19 15:29 White Blood Count 7.7 Red Blood Count 2.81 L Hemoglobin 7.9 L Hematocrit 26.7 L Mean Corpuscular Volume 95.0 Mean Corpuscular 28.1 L Hemoglobin Mean Corpuscular 29.6 L Hemoglobin Concent Red Cell Distribution 22.5 H Width Platelet Count 151 Mean Platelet Volume 12.5 H Immature Granulocytes % 0.400 Neutrophils % 73.6 Lymphocytes % 20.6 Monocytes % 5.2 Eosinophils % 0.1 Basophils % 0.1 Nucleated Red Blood 1.0 H Cells % Immature Granulocytes # 0.030 Neutrophils # 5.7 Lymphocytes # 1.6 Monocytes # 0.4 Eosinophils # 0.0 Basophils # 0.0 Nucleated Red Blood 0.1 H Cells # Prothrombin Time 17.8 H Prothrombin Time Ratio 1.4 INR International 1.46 Normalized Ratio Activated 33.6 Partial Thromboplast Time Sodium Level 139 Potassium Level 3.5 Chloride Level 104 Carbon Dioxide Level 31 Anion Gap 4 L Blood Urea Nitrogen 40 #H Creatinine 1.12 Est Glomerular Filtrat Rate mL/min Glucose Level 105 # Calcium Level 8.2 L Bedside Glucose 135 136 161 Medications Medication Current Medications Acetaminophen (Tylenol Tab) 650 mg Q4H PRN PO PAIN Last administered on 02/11/19at 21:29; Admin Dose 650 MG; Start 01/17/19 at 18:17 Misc[facility] This patient ramirez... PRN PRN XX WOUND CARE; Start 01/17/19 at 18:17 Albuterol/ Ipratropium (Duoneb) 3 ml Q2H RESP THERAPY PRN HHN SHORTNESS OF BREATH Last administered on 02/13/19at 05:52; Admin Dose 3 ML; Start 01/17/19 at 18:17 Bisacodyl (Dulcolax) 10 mg BID PRN PO CONSTIPATION; Start 01/17/19 at 18:17; Status Hold Folic Acid (Folic Acid) 1 mg DAILY PO Last administered on 02/24/19at 09:21; Admin Dose 1 MG; Start 01/17/19 at 18:17 Latanoprost (Xalatan) 1 drop HS BOTH EYES Last administered on 02/25/19at 21:15; Admin Dose 1 DROP; Start 01/17/19 at 18:17 Nitroglycerin (Nitroglycerin (Sl Tab) 0.4 Mg) 0.4 tab Q5M PRN SL CHEST PAIN; Start 01/17/19 at 18:17 IV Flush (NS 3 ml) 3 ml PER PROTOCOL IV ; Start 01/17/19 at 18:17 Glucose (Glutose) 15 gm Q15M PRN PO DECREASED GLUCOSE; Start 01/17/19 at 18:17 Glucose (Glutose) 22.5 gm Q15M PRN PO DECREASED GLUCOSE; Start 01/17/19 at 18:17 Dextrose (D50w Syringe) 25 ml Q15M PRN IV DECREASED GLUCOSE Last administered on 02/24/19at 04:55; Admin Dose 25 ML; Start 01/17/19 at 18:17 Dextrose (D50w Syringe) 50 ml Q15M PRN IV DECREASED GLUCOSE; Start 01/17/19 at 18:17 Glucagon (Glucagen) 1 mg Q15M PRN IM DECREASED GLUCOSE Last administered on 02/11/19at 17:55; Admin Dose 1 MG; Start 01/17/19 at 18:17 Glucose (Glutose) 15 gm Q15M PRN BUCCAL DECREASED GLUCOSE; Start 01/17/19 at 18:17 Bisacodyl (Dulcolax Supp) 10 mg DAILY PRN [place] CONSTIPATION; Start 01/17/19 at 18:17 Zinc Acetate/ Diphenhydramine (Benadryl 2% Cr) 1 applic Q6H PRN TOP ITCHING Last administered on 02/21/19at 20:38; Admin Dose 1 APPLIC; Start 01/19/19 at 16:37 IV Flush (NS 10 ml) 10 ml PRN PRN IV IV PROTOCOL; Start 01/20/19 at 14:30 Cyanocobalamin (Vitamin B12 Inj) 1,000 mcg Q7D IM Last administered on 02/24/19at 09:21; Admin Dose 1,000 MCG; Start 02/03/19 at 09:00 Metoprolol Tartrate (Lopressor) 5 mg Q4H PRN IV HR>110 Hold SBP<100; Start 01/26/19 at 14:30 Enoxaparin Sodium (Lovenox) 60 mg DAILY SC Last administered on 02/03/19 08:06; Admin Dose 60 MG; Start 01/28/19 at 09:00; Status Hold Docusate Sodium (Colace Liquid Cup) 100 mg BID NGT ; Start 01/27/19 at 22:00; Status Hold Terazosin HCl (Hytrin) 10 mg HS NGT Last administered on 02/24/19 21:17; Admin Dose 10 MG; Start 01/28/19 at 21:00 Levothyroxine Sodium (Synthroid) 125 mcg BEFORE BREAKFAST NGT Last administered on 02/25/19 05:19; Admin Dose 125 MCG; Start 01/28/19 at 07:00 Ferrous Sulfate (Feosol Liquid Cup) 300 mg WITH MEALS GTB Last administered on 02/24/19 17:35; Admin Dose 300 MG; Start 01/28/19 at 11:30 Multivitamins (Multivitamin) 30 ml DAILY GTB Last administered on 02/24/19 09:22; Admin Dose 30 ML; Start 01/28/19 at 11:00 Nystatin/ Triamcinolone Acetonide (Mycolog Oint) 1 applic BID TOP Last admini stered on 02/26/19 08:37; Admin Dose 1 APPLIC; Start 01/28/19 at 22:30 Insulin Aspart (Novolog Insulin Pen) NOVOLOG *MILD* ALGORI... Q4 SC Last administered on 02/26/19 15:53; Admin Dose 1 UNIT; Start 01/29/19 at 05:00 Albuterol/ Ipratropium (Duoneb) 3 ml Q6HWA RESP THERAPY HHN Last administered on 02/26/19 08:20; Admin Dose 3 ML; Start 01/29/19 at 14:00 Epoetin Dae-epbx (RETACRIT(non-esrd)) 40,000 unit Mo@1700 SC Last administered on 02/24/19 17:37; Admin Dose 40,000 UNIT; Start 02/03/19 at 17:00 Eye Lubricant (Refresh Plus) 1 drop QID BOTH EYES Last administered on 02/26/19 15:51; Admin Dose 1 DROP; Start 02/06/19 at 09:00 Eye Lubricant (Akwa Oint) 1 applic HS LEFT EYE Last administered on 02/25/19 21:00; Admin Dose 1 APPLIC; Start 02/06/19 at 21:00 Multi-Ingredient Ointment (Aquaphor Oint 52.5 Gm) 1 applic BID TOP Last administered on 02/26/19 08:36; Admin Dose 1 APPLIC; Start 02/06/19 at 22:40 Morphine Sulfate (morphine) 0.25 mg Q4H PRN IV SEVERE PAIN LEVEL 7-10 Last administered on 02/21/19 06:06; Admin Dose 0.25 MG; Start 02/15/19 at 11:00 Methylprednisolone Sodium Succinate (Solu-Medrol) 40 mg DAILY IV Last administered on 02/26/19 08:33; Admin Dose 40 MG; Start 02/21/19 at 09:00 Furosemide (Lasix) 40 mg DAILY IV Last administered on 02/26/19 08:33; Admin Dose 40 MG; Start 02/22/19 at 09:00 Lansoprazole (Prevacid) 30 mg BID@0600,1800 NGT Last administered on 02/25/19 05:19; Admin Dose 30 MG; Start 02/21/19 at 18:00 IV Flush (NS 10 ml) 10 ml PRN PRN IV IV PROTOCOL; Start 02/21/19 at 21:00 Dextrose 1,000 ml @ 70 mls/hr [id number] IV Last administered on 02/26/19 05:52; Admin Dose 70 MLS/HR; Start 02/24/19 at 11:00 Albumin Human 100 ml @ 100 mls/hr WITH DIALYSIS PRN IV SBP <90 DURING DIALYSIS Last administered on 02/25/19 21:52; Admin Dose 100 MLS/HR; Start 02/24/19 at 14:00 Heparin Sodium (Porcine) (Heparin (1000 Units/ml)) 2,800 unit AFTER DIALYSIS PRN CATHETER Dialysis catheter Last administered on 02/25/19 23:57; Admin Dose 2,800 UNIT; Start 02/24/19 at 15:00 Miscellaneous Information (*Order Clarification Bulletin) MEDICATION REQUIRES CLARIFICATI... Q8H XX ; Start 02/25/19 at 15:30; Stop 02/27/19 at 15:29 Hydromorphone HCl (Dilaudid) 0.2 mg PACU PRN IV PAIN; Start 02/26/19 at 14:00; Stop 02/26/19 at 20:00 Fentanyl (Sublimaze) 25 mcg PACU ORDER PRN IV MILD PAIN 1-3; Start 02/26/19 at 14:00; Stop 02/26/19 at 20:00 Ondansetron HCl (Zofran Inj) 4 mg PACU ORDER PRN IV NAUSEA/VOMITING; Start 02/26/19 at 14:00; Stop 02/26/19 at 20:00 LUCIAN HARKINS NP Feb 26, 2019 15:58
--- NOTE | 2019-02-26 17:11 | PN ---
Date/Time of Note Date/Time of Note DATE: 02/26/19 TIME: 17:07 Assessment/Plan VTE Prophylaxis Risk score (from Ns)>0 risk: 8 SCD applied (from Ns): Yes Pharmacological prophylaxis: NA/contraindicated Pharm contraindication: low risk/ambulating Lines/Catheters [facility] Peripheral IV Urinary Cath still in place: Yes Reason Cath still needed: urinary retention Assessment/Plan Hospital Course Hospital Course # AMS likely due to stroke vs seizure, MRI noted for old old infarcts, EEG diffuse slowing,'s slight better #. Septic shock now on pressors likely secondary to pneumonia on levophed resolved # Hypothermia ? sepsis #. 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 Chronic renal failure likely secondary to sepsis, improved, normal creatinine #. Hypertension.currently hypotensive resolved # Impending respiratory failure on high flow likely secondary to fluid overload/pneumonia much improved , now on nasal cannula sp initattion on HD # Anasarca # Hyperlipidemia. # Hypothyroidism. # Bilateral groin cellulitis more likely associated with mateus, patches in groin and axilla bilaterally. skin peeling # History of rheumatoid arthritis with joint deformities. # Diabetes type 2. # Hx of CABGx2, carotid stent #. Peripheral vascular disease. #. Chronic a.fib, now on lovenox #. right arm edema # Neoplasm per CT abdomen. 4.3 cm cystic lesion along the pancreas body, enlarged since 10/10/2012 (previously 2.4 cm). 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 # Possible allergic skin reaction ? drug present since admission> improved s/p biopsy/ Amrik Betancourt > limit results solar keratosis # hypoThermia #Hypernatremia [facility] due to dehydration improving # metabolic alkalosis # Dysphagia sp G tube today Plan -SP post dialysis which was started X3 - Will assess for HD needs for temporary vs permanent basis - pt has goo UOP - SP g tube today -Monitor kidney function - cw with Lasix 40 IV daily and IV Solu-Medrol daily - nebs, - Holding aspirin and Lovenox due to GI bleeding/anemia - GI and DVT prophylaxsis -oncology consul dr Lorenzo aware:he said Ca 19-9 is negative indicating unlikely malignant. This may be a pseudocyst or a precancerous pancreatic lesion. It has been growing in size but patient is asymptomatic. EUS with biopsy is recommended and can either be done inpatient or outpatient setting. The patient at this time is unlikely a candidate for a Whipple surgery however. -skin care> rash is much improved - s/p skin biopsy pending results solar elastosis according to them is probably due to antibiotics -Off of all antibiotics -PT OT and speech re-eval again Condition much improved in resp status ? talon will talk to danaldother again Result Diagram: 02/26/19 0641 02/26/19 0641 Results 24hrs Laboratory Tests Test 02/25/19 17:08 02/25/19 21:05 02/26/19 01:48 02/26/19 05:51 Bedside Glucose 136 111 106 126 Test 02/26/19 06:41 02/26/19 08:32 02/26/19 13:18 02/26/19 15:29 White Blood Count 7.7 Red Blood Count 2.81 L Hemoglobin 7.9 L Hematocrit 26.7 L Mean Corpuscular Volume 95.0 Mean Corpuscular 28.1 L Hemoglobin Mean Corpuscular 29.6 L Hemoglobin Concent Red Cell Distribution 22.5 H Width Platelet Count 151 Mean Platelet Volume 12.5 H Immature Granulocytes % 0.400 Neutrophils % 73.6 Lymphocytes % 20.6 Monocytes % 5.2 Eosinophils % 0.1 Basophils % 0.1 Nucleated Red Blood 1.0 H Cells % Immature Granulocytes # 0.030 Neutrophils # 5.7 Lymphocytes # 1.6 Monocytes # 0.4 Eosinophils # 0.0 Basophils # 0.0 Nucleated Red Blood 0.1 H Cells # Prothrombin Time 17.8 H Prothrombin Time Ratio 1.4 INR International 1.46 Normalized Ratio Activated 33.6 Partial Thromboplast Time Sodium Level 139 Potassium Level 3.5 Chloride Level 104 Carbon Dioxide Level 31 Anion Gap 4 L Blood Urea Nitrogen 40 #H Creatinine 1.12 Est Glomerular Filtrat Rate mL/min Glucose Level 105 # Calcium Level 8.2 L Bedside Glucose 135 136 161 Subjective 24 Hr Interval Summary Free Text/Dictation breathing better sp G tube today sp HD today Exam/Review of Systems Exam Vitals Vital Signs Date Temp Pulse Resp B/P (MAP) Pulse Ox O2 O2 Flow FiO2 Time Delivery Rate 02/26/19 66 16:59 02/26/19 97.9 20 141/60 95 Nasal 16:12 (87) Cannula 02/26/19 2.0 13:10 02/26/19 31 03:55 Intake and Output 02/25/19 02/25/19 02/26/19 1515:00 23:00 07:00 IntakeIntake Total 100 ml 770 ml OutputOutput Total 1000 ml 2600 ml BalanceBalance 100 ml -230 ml -2600 ml Exam Constitutional: alert, following more commands, on nasal cannula Head: normocephalic Eyes: nl conjunctiva Neck: supple Respiratory: diminished breath sounds Cardiovascular: regular rate and rhythm Gastrointestinal: soft Genitourinary - Male: other (rinaldi) swelling has much improved rash is resolved Results Results 24hrs Laboratory Tests Test 02/25/19 17:08 02/25/19 21:05 02/26/19 01:48 02/26/19 05:51 Bedside Glucose 136 111 106 126 Test 02/26/19 06:41 02/26/19 08:32 02/26/19 13:18 02/26/19 15:29 White Blood Count 7.7 Red Blood Count 2.81 L Hemoglobin 7.9 L Hematocrit 26.7 L Mean Corpuscular Volume 95.0 Mean Corpuscular 28.1 L Hemoglobin Mean Corpuscular 29.6 L Hemoglobin Concent Red Cell Distribution 22.5 H Width Platelet Count 151 Mean Platelet Volume 12.5 H Immature Granulocytes % 0.400 Neutrophils % 73.6 Lymphocytes % 20.6 Monocytes % 5.2 Eosinophils % 0.1 Basophils % 0.1 Nucleated Red Blood 1.0 H Cells % Immature Granulocytes # 0.030 Neutrophils # 5.7 Lymphocytes # 1.6 Monocytes # 0.4 Eosinophils # 0.0 Basophils # 0.0 Nucleated Red Blood 0.1 H Cells # Prothrombin Time 17.8 H Prothrombin Time Ratio 1.4 INR International 1.46 Normalized Ratio Activated 33.6 Partial Thromboplast Time Sodium Level 139 Potassium Level 3.5 Chloride Level 104 Carbon Dioxide Level 31 Anion Gap 4 L Blood Urea Nitrogen 40 #H Creatinine 1.12 Est Glomerular Filtrat Rate mL/min Glucose Level 105 # Calcium Level 8.2 L Bedside Glucose 135 136 161 Medications Medication Current Medications Acetaminophen (Tylenol Tab) 650 mg Q4H PRN PO PAIN Last administered on 02/11/19at 21:29; Admin Dose 650 MG; Start 01/17/19 at 18:17 Miscellaneous Information (Pending [facility] Order For Wound Care) This patient ramirez... PRN PRN XX WOUND CARE; Start 01/17/19 at 18:17 Albuterol/ Ipratropium (Duoneb) 3 ml Q2H RESP THERAPY PRN HHN SHORTNESS OF BREATH Last administered on 02/13/19at 05:52; Admin Dose 3 ML; Start 01/17/19 at 18:17 Bisacodyl (Dulcolax) 10 mg BID PRN PO CONSTIPATION; Start 01/17/19 at 18:17; Status Hold Folic Acid (Folic Acid) 1 mg DAILY PO Last administered on 02/24/19at 09:21; Admin Dose 1 MG; Start 01/17/19 at 18:17 Latanoprost (Xalatan) 1 drop HS BOTH EYES Last administered on 02/25/19at 21:15; Admin Dose 1 DROP; Start 01/17/19 at 18:17 Nitroglycerin (Nitroglycerin (Sl Tab) 0.4 Mg) 0.4 tab Q5M PRN SL CHEST PAIN; Start 01/17/19 at 18:17 IV Flush (NS 3 ml) 3 ml PER PROTOCOL IV ; Start 01/17/19 at 18:17 Glucose (Glutose) 15 gm Q15M PRN PO DECREASED GLUCOSE; Start 01/17/19 at 18:17 Glucose (Glutose) 22.5 gm Q15M PRN PO DECREASED GLUCOSE; Start 01/17/19 at 18:17 Dextrose (D50w Syringe) 25 ml Q15M PRN IV DECREASED GLUCOSE Last administered on 02/24/19at 04:55; Admin Dose 25 ML; Start 01/17/19 at 18:17 Dextrose (D50w Syringe) 50 ml Q15M PRN IV DECREASED GLUCOSE; Start 01/17/19 at 18:17 Glucagon (Glucagen) 1 mg Q15M PRN IM DECREASED GLUCOSE Last administered on 02/11/19at 17:55; Admin Dose 1 MG; Start 01/17/19 at 18:17 Glucose (Glutose) 15 gm Q15M PRN BUCCAL DECREASED GLUCOSE; Start 01/17/19 at 18:17 Bisacodyl (Dulcolax Supp) 10 mg DAILY PRN [place] CONSTIPATION; Start 01/17/19 at 18:17 Zinc Acetate/ Diphenhydramine (Benadryl 2% Cr) 1 applic Q6H PRN TOP ITCHING Last administered on 02/21/19 20:38; Admin Dose 1 APPLIC; Start 01/19/19 at 16:37 IV Flush (NS 10 ml) 10 ml PRN PRN IV IV PROTOCOL; Start 01/20/19 at 14:30 Cyanocobalamin (Vitamin B12 Inj) 1,000 mcg Q7D IM Last administered on 02/24/19 09:21; Admin Dose 1,000 MCG; Start 02/03/19 at 09:00 Metoprolol Tartrate (Lopressor) 5 mg Q4H PRN IV HR>110 Hold SBP<100; Start 01/26/19 at 14:30 Enoxaparin Sodium (Lovenox) 60 mg DAILY SC Last administered on 02/03/19 08:06; Admin Dose 60 MG; Start 01/28/19 at 09:00; Status Hold Docusate Sodium (Colace Liquid Cup) 100 mg BID NGT ; Start 01/27/19 at 22:00; Status Hold Terazosin HCl (Hytrin) 10 mg HS NGT Last administered on 02/24/19 21:17; Admin Dose 10 MG; Start 01/28/19 at 21:00 Levothyroxine Sodium (Synthroid) 125 mcg BEFORE BREAKFAST NGT Last administered on 02/25/19 05:19; Admin Dose 125 MCG; Start 01/28/19 at 07:00 Ferrous Sulfate (Feosol Liquid Cup) 300 mg WITH MEALS GTB Last administered on 02/24/19 17:35; Admin Dose 300 MG; Start 01/28/19 at 11:30 Multivitamins (Multivitamin) 30 ml DAILY GTB Last administered on 02/24/19 09:22; Admin Dose 30 ML; Start 01/28/19 at 11:00 Nystatin/ Triamcinolone Acetonide (Mycolog Oint) 1 applic BID TOP Last administered on 02/26/19 08:37; Admin Dose 1 APPLIC; Start 01/28/19 at 22:30 Insulin Aspart (Novolog Insulin Pen) NOVOLOG *MILD* ALGORI... Q4 SC Last administered on 02/26/19 15:53; Admin Dose 1 UNIT; Start 01/29/19 at 05:00 Albuterol/ Ipratropium (Duoneb) 3 ml Q6HWA RESP THERAPY HHN Last administered on 02/26/19 08:20; Admin Dose 3 ML; Start 01/29/19 at 14:00 Epoetin Dae-epbx (RETACRIT(non-esrd)) 40,000 unit Mo@1700 SC Last administered on 02/24/19 17:37; Admin Dose 40,000 UNIT; Start 02/03/19 at 17:00 Eye Lubricant (Refresh Plus) 1 drop QID BOTH EYES Last administered on 02/26/19 15:51; Admin Dose 1 DROP; Start 02/06/19 at 09:00 Eye Lubricant (Akwa Oint) 1 applic HS LEFT EYE Last administered on 02/25/19 21:00; Admin Dose 1 APPLIC; Start 02/06/19 at 21:00 Multi-Ingredient Ointment (Aquaphor Oint 52.5 Gm) 1 applic BID TOP Last administered on 02/26/19 08:36; Admin Dose 1 APPLIC; Start 02/06/19 at 22:40 Morphine Sulfate (morphine) 0.25 mg Q4H PRN IV SEVERE PAIN LEVEL 7-10 Last administered on 02/21/19 06:06; Admin Dose 0.25 MG; Start 02/15/19 at 11:00 Methylprednisolone Sodium Succinate (Solu-Medrol) 40 mg DAILY IV Last administered on 02/26/19 08:33; Admin Dose 40 MG; Start 02/21/19 at 09:00 Furosemide (Lasix) 40 mg DAILY IV Last administered on 02/26/19 08:33; Admin Dose 40 MG; Start 02/22/19 at 09:00 Lansoprazole (Prevacid) 30 mg BID@0600,1800 NGT Last administered on 02/25/19 05:19; Admin Dose 30 MG; Start 02/21/19 at 18:00 IV Flush (NS 10 ml) 10 ml PRN PRN IV IV PROTOCOL; Start 02/21/19 at 21:00 Dextrose 1,000 ml @ 70 mls/hr [id number] IV Last administered on 02/26/19 05:52; Admin Dose 70 MLS/HR; Start 02/24/19 at 11:00 Albumin Human 100 ml @ 100 mls/hr WITH DIALYSIS PRN IV SBP <90 DURING DIALYSIS Last administered on 02/25/19at 21:52; Admin Dose 100 MLS/HR; Start 02/24/19 at 14:00 Heparin Sodium (Porcine) (Heparin (1000 Units/ml)) 2,800 unit AFTER DIALYSIS PRN CATHETER Dialysis catheter Last administered on 02/25/19at 23:57; Admin Dose 2,800 UNIT; Start 02/24/19 at 15:00 Miscellaneous Information (*Order Clarification Bulletin) MEDICATION REQUIRES CLARIFICATI... Q8H XX ; Start 02/25/19 at 15:30; Stop 02/27/19 at 15:29 Hydromorphone HCl (Dilaudid) 0.2 mg PACU PRN IV PAIN; Start 02/26/19 at 14:00; Stop 02/26/19 at 20:00 Fentanyl (Sublimaze) 25 mcg PACU ORDER PRN IV MILD PAIN 1-3; Start 02/26/19 at 14:00; Stop 02/26/19 at 20:00 Ondansetron HCl (Zofran Inj) 4 mg PACU ORDER PRN IV NAUSEA/VOMITING; Start 02/26/19 at 14:00; Stop 02/26/19 at 20:00 IVAN AKHTAR MD Feb 26, 2019 17:11
[2019-02-26] MEDS: morphine 2 MG INJ IV PRN (20:07)
[2019-02-26] MEDS: TERAZOSIN 5 MG CAP NGT SCH (21:07)
[2019-02-26] MEDS: LATANOPROST 0.005% 2.5 ML OPH BOTH EYES SCH (21:07)
[2019-02-26] MEDS: OCULAR LUBRICANT 3.5 GM OPH OINT LEFT EYE SCH (21:07)
[2019-02-27] VITALS (9 sets, daily range): BP systolic 128–144; BP diastolic 60–65; PULSE 66–77; RESP 18–20
[2019-02-27] MEDS: morphine 2 MG INJ IV PRN (02:55)
[2019-02-27] MEDS: INSULIN ASPART [NOVOLOG] 3 ML PEN SC SCH ×4 (02:57→13:47)
[2019-02-27] MEDS: DEXTROSE 10% 1,000 ML IV SCH (05:49)
[2019-02-27] MEDS: LEVOTHYROXINE 125 MCG TAB NGT SCH (06:02)
[2019-02-27] MEDS: LANSOPRAZOLE 30 MG CAP NGT SCH (06:02)
[2019-02-27] MEDS ORDERED: [UNRECOGNIZED DRUG - REMARK] XX SCH (07:30)
[2019-02-27] MEDS: ALBUTEROL/IPRATROPIUM (NEB) 3 ML AMP HHN SCH ×2 (07:52→14:34)
[2019-02-27] MEDS: FERROUS SULFATE 60 MG/ML 5ML CUP GTB SCH ×2 (08:18→13:20)
[2019-02-27] MEDS: CARBOXYMETHYLCELLULOSE 0.5% 0.4 ML OPH BOTH EYES SCH ×2 (08:19→13:21)
[2019-02-27] MEDS: FOLIC ACID 1 MG TAB PO SCH (08:19)
[2019-02-27] MEDS: MULTIVITAMINS 30 ML CUP GTB SCH (08:19)
[2019-02-27] MEDS: FUROSEMIDE 40 MG INJ IV SCH (08:19)
[2019-02-27] MEDS: METHYLPREDNISOLONE 40 MG INJ IV SCH (08:19)
[2019-02-27] MEDS: AQUAPHOR 52.5 GM OINT TOP SCH (08:20)
[2019-02-27] MEDS: NYSTATIN/TRIAMCINOLONE 15 GM OINT TOP SCH (08:20)
[2019-02-27] MEDS: BALSAM PERU/CASTOR OIL 60 GM TUBE TOP SCH (08:20)
[2019-02-27] MEDS ORDERED: [UNRECOGNIZED DRUG - REMARK] XX SCH (11:30)
--- NOTE | 2019-02-27 11:37 | CONS ---
Assessment/Plan Assessment/Plan Assessment/Plan (Daily) Assessment and recommendations; next 1. Patient admitted with bilateral pneumonia with marked overall clinical improvement. 2. Dysphagia, status post G-tube placement. 3. Encephalopathy with significant interval improvement as well. 4. Critical illness neuropathy/myopathy. 5. Anemia. 6. Interval improvement in skin rash. 7. History of valvular heart disease. Continue current supportive care. Consider discharge to [facility]. I did have a detailed discussion with the patient's family at bedside and answered all their questions. Consultation Date/Type/Reason Admit Date/Time Jan 17, 2019 at 15:58 Initial Consult Date 01/18/19 Type of Consult Pulmonary/critical care Patient's condition is tenuous at best. Remains awake and responsive. Currently in no distress. Requesting Provider: IVAN AKHTAR MD Date/Time of Note DATE: 02/27/19 TIME: 11:33 24 HR Interval Summary Free Text/Dictation Patient's condition is stable. Remains completely awake and alert. Denies any shortness of breath, chest pain. General exam; elderly male, awake alert, on 2 L nasal cannula. Currently in no distress. Exam/Review of Systems Exam Vitals Vital Signs Date Temp Pulse Resp B/P (MAP) Pulse Ox O2 O2 Flow FiO2 Time Delivery Rate 02/27/19 97.9 69 20 128/61 100 Nasal 11:14 (83) Cannula 02/27/19 3.0 08:15 02/26/19 24 20:39 Intake and Output 02/26/19 02/26/19 02/27/19 1515:00 23:00 07:00 IntakeIntake Total 250 ml OutputOutput Total 1300 ml 500 ml BalanceBalance -1300 ml -250 ml Exam H EENT exam; supple neck, no JVD. No lymphadenopathy. Midline trachea. No thyromegaly. Patient is edentulous. Chest exam; diminished breath sounds bilaterally with scattered crackles. S1-S2 audible, no murmurs. Regular rhythm. Abdomen exam; soft, mildly protuberant. Midline dressing in place. G-tube in place. Bowel sounds audible. Extremity exam; peripheral edema. Patient does have changes of rheumatoid arthritis. 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 Patient exhibiting generalized weakness. Results Result Diagram: 02/26/19 0641 02/26/19 0641 Results 24hrs Laboratory Tests Test 02/26/19 13:18 02/26/19 15:29 02/26/19 18:26 02/26/19 21:04 Bedside Glucose 136 161 162 220 Test 02/27/19 02:08 02/27/19 06:11 02/27/19 08:23 Bedside Glucose 147 122 122 Medications Medication Current Medications Acetaminophen (Tylenol Tab) 650 mg Q4H PRN PO PAIN Last administered on 02/11/19at 21:29; Admin Dose 650 MG; Start 01/17/19 at 18:17 Miscellaneous Information (Pending Santyl Order For Wound Care) This patient ramirez... PRN PRN XX WOUND CARE; Start 01/17/19 at 18:17 Albuterol/ Ipratropium (Duoneb) 3 ml Q2H RESP THERAPY PRN HHN SHORTNESS OF BREATH Last administered on 02/13/19at 05:52; Admin Dose 3 ML; Start 01/17/19 at 18:17 Bisacodyl (Dulcolax) 10 mg BID PRN PO CONSTIPATION; Start 01/17/19 at 18:17; Status Hold Folic Acid (Folic Acid) 1 mg DAILY PO Last administered on 02/27/19at 08:19; Admin Dose 1 MG; Start 01/17/19 at 18:17 Latanoprost (Xalatan) 1 drop HS BOTH EYES Last administered on 02/26/19at 21:07; Admin Dose 1 DROP; Start 01/17/19 at 18:17 Nitroglycerin (Nitroglycerin (Sl Tab) 0.4 Mg) 0.4 tab Q5M PRN SL CHEST PAIN; Start 01/17/19 at 18:17 IV Flush (NS 3 ml) 3 ml PER PROTOCOL IV ; Start 01/17/19 at 18:17 Glucose (Glutose) 15 gm Q15M PRN PO DECREASED GLUCOSE; Start 01/17/19 at 18:17 Glucose (Glutose) 22.5 gm Q15M PRN PO DECREASED GLUCOSE; Start 01/17/19 at 18:17 Dextrose (D50w Syringe) 25 ml Q15M PRN IV DECREASED GLUCOSE Last administered on 02/24/19 04:55; Admin Dose 25 ML; Start 01/17/19 at 18:17 Dextrose (D50w Syringe) 50 ml Q15M PRN IV DECREASED GLUCOSE; Start 01/17/19 at 18:17 Glucagon (Glucagen) 1 mg Q15M PRN IM DECREASED GLUCOSE Last administered on 02/11/19at 17:55; Admin Dose 1 MG; Start 01/17/19 at 18:17 Glucose (Glutose) 15 gm Q15M PRN BUCCAL DECREASED GLUCOSE; Start 01/17/19 at 18:17 Bisacodyl (Dulcolax Supp) 10 mg DAILY PRN MO CONSTIPATION; Start 01/17/19 at 18:17 Zinc Acetate/ Diphenhydramine (Benadryl 2% Cr) 1 applic Q6H PRN TOP ITCHING Last administered on 02/21/19at 20:38; Admin Dose 1 APPLIC; Start 01/19/19 at 16:37 IV Flush (NS 10 ml) 10 ml PRN PRN IV IV PROTOCOL; Start 01/20/19 at 14:30 Cyanocobalamin (Vitamin B12 Inj) 1,000 mcg Q7D IM Last administered on 02/24/19 09:21; Admin Dose 1,000 MCG; Start 02/03/19 at 09:00 Metoprolol Tartrate (Lopressor) 5 mg Q4H PRN IV HR>110 Hold SBP<100; Start 01/26/19 at 14:30 Enoxaparin Sodium (Lovenox) 60 mg DAILY SC Last administered on 02/03/19at 08:06; Admin Dose 60 MG; Start 01/28/19 at 09:00; Status Hold Docusate Sodium (Colace Liquid Cup) 100 mg BID NGT ; Start 01/27/19 at 22:00; Status Hold Terazosin HCl (Hytrin) 10 mg HS NGT Last administered on 02/26/19at 21:07; Admin Dose 10 MG; Start 01/28/19 at 21:00 Levothyroxine Sodium (Synthroid) 125 mcg BEFORE BREAKFAST NGT Last administered on 02/27/19 06:02; Admin Dose 125 MCG; Start 01/28/19 at 07:00 Ferrous Sulfate (Feosol Liquid Cup) 300 mg WITH MEALS GTB Last administered on 02/27/19 08:18; Admin Dose 300 MG; Start 01/28/19 at 11:30 Multivitamins (Multivitamin) 30 ml DAILY GTB Last administered on 02/27/19 08:19; Admin Dose 30 ML; Start 01/28/19 at 11:00 Nystatin/ Triamcinolone Acetonide (Mycolog Oint) 1 applic BID TOP Last adm inistered on 02/27/19 08:20; Admin Dose 1 APPLIC; Start 01/28/19 at 22:30 Insulin Aspart (Novolog Insulin Pen) NOVOLOG *MILD* ALGORI... Q4 SC Last administered on 02/27/19 02:57; Admin Dose 1 UNIT; Start 01/29/19 at 05:00 Albuterol/ Ipratropium (Duoneb) 3 ml Q6HWA RESP THERAPY HHN Last administered on 02/27/19 07:52; Admin Dose 3 ML; Start 01/29/19 at 14:00 Epoetin Dae-epbx (RETACRIT(non-esrd)) 40,000 unit Mo@1700 SC Last administered on 02/24/19 17:37; Admin Dose 40,000 UNIT; Start 02/03/19 at 17:00 Eye Lubricant (Refresh Plus) 1 drop QID BOTH EYES Last administered on 02/27/19 08:19; Admin Dose 1 DROP; Start 02/06/19 at 09:00 Eye Lubricant (Akwa Oint) 1 applic HS LEFT EYE Last administered on 02/26/19 21:07; Admin Dose 1 APPLIC; Start 02/06/19 at 21:00 Multi-Ingredient Ointment (Aquaphor Oint 52.5 Gm) 1 applic BID TOP Last administered on 02/27/19 08:20; Admin Dose 1 APPLIC; Start 02/06/19 at 22:40 Morphine Sulfate (morphine) 0.25 mg Q4H PRN IV SEVERE PAIN LEVEL 7-10 Last administered on 02/27/19 02:55; Admin Dose 0.25 MG; Start 02/15/19 at 11:00 Methylprednisolone Sodium Succinate (Solu-Medrol) 40 mg DAILY IV Last administered on 02/27/19 08:19; Admin Dose 40 MG; Start 02/21/19 at 09:00 Furosemide (Lasix) 40 mg DAILY IV Last administered on 02/27/19 08:19; Admin Dose 40 MG; Start 02/22/19 at 09:00 Lansoprazole (Prevacid) 30 mg BID@0600,1800 NGT Last administered on 6/6/19at 06:02; Admin Dose 30 MG; Start 02/21/19 at 18:00 IV Flush (NS 10 ml) 10 ml PRN PRN IV IV PROTOCOL; Start 02/21/19 at 21:00 Albumin Human 100 ml @ 100 mls/hr WITH DIALYSIS PRN IV SBP <90 DURING DIALYSIS Last administered on 02/25/19at 21:52; Admin Dose 100 MLS/HR; Start 02/24/19 at 14:00 Heparin Sodium (Porcine) (Heparin (1000 Units/ml)) 2,800 unit AFTER DIALYSIS PRN CATHETER Dialysis catheter Last administered on 02/25/19at 23:57; Admin Dose 2,800 UNIT; Start 02/24/19 at 15:00 Miscellaneous Information (*Order Clarification Bulletin) MEDICATION REQUIRES CLARIFICATI... Q8H XX ; Start 02/25/19 at 15:30; Stop 02/27/19 at 15:29 Miscellaneous Information 1 ea NOTE XX ; Start 02/27/19 at 07:30 Miscellaneous Information 1 ea NOTE XX ; Start 02/27/19 at 11:30 LOVE HAWK Feb 27, 2019 11:37
[2019-02-27] MEDS ORDERED: [UNRECOGNIZED DRUG - REMARK] XX SCH (12:00)
--- NOTE | 2019-02-27 13:01 | CONS ---
Assessment/Plan Assessment/Plan Hospital Course (Demo Recall) 88 yo male with multiple medical problems including DM, CRF, RA, PVD and chronic afib on Eliquis who presented to [facility] 01/05/19 with severe normocytic anemia and Hg ~7. 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 # Anemia-normocytic -Hg stable around 7. 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 Elevated Methylmalonic acid level noted -s/p IV iron. will recheck iron panel at this time -continue vitamin b12 weekly as vitamin b12 was low normal and methylmalonic acid was elevated. Continue folate as well. -No evidence of hemolysis at this time. -Transfuse to keep Hgb > 7. 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 -This may be a pseudocyst or a precancerous pancreatic lesion. -It has been growing in size but patient is asymptomatic. EUS with biopsy is recommended and can either be done inpatient or outpatient setting. -The patient at this time is unlikely a candidate for a whipple surgery however. Thank you to Dr. Alatorre for allowing [facility] to participate in the care of this patient. A total of 40 minutes was spent in consultation with this patient and all his questions were answered. Consultation Date/Type/Reason Admit Date/Time Jan 17, 2019 at 15:58 Initial Consult Date 01/18/19 Type of Consult hematology Reason for Consultation anemia Requesting Provider: IVAN AKHTAR MD Date/Time of Note DATE: 02/27/19 TIME: 12:59 24 HR Interval Summary Free Text/Dictation no acute overnight events. pt stable. no bleeding. Hg stable Exam/Review of Systems Exam Vitals Vital Signs Date Temp Pulse Resp B/P (MAP) Pulse Ox O2 O2 Flow FiO2 Time Delivery Rate 02/27/19 66 12:00 02/27/19 97.9 20 128/61 100 Nasal 11:14 (83) Cannula 02/27/19 3.0 08:15 02/26/19 24 20:39 Intake and Output 02/26/19 02/26/19 02/27/19 1515:00 23:00 07:00 IntakeIntake Total 250 ml OutputOutput Total 1300 ml 500 ml BalanceBalance -1300 ml -250 ml Constitutional: distress, frail Psych: confusion Head: normocephalic Eyes: nl conjunctiva ENMT: nl external ears & nose Neck: supple, non-tender Respiratory: clear to auscultation Cardiovascular: regular rate and rhythm Gastrointestinal: soft Musculoskeletal: nl extremities to inspection Results Result Diagram: 02/26/19 0641 02/26/19 0641 Results 24hrs Laboratory Tests Test 02/26/19 13:18 02/26/19 15:29 02/26/19 18:26 02/26/19 21:04 Bedside Glucose 136 161 162 220 Test 02/27/19 02:08 02/27/19 06:11 02/27/19 08:23 Bedside Glucose 147 122 122 Medications Medication Current Medications Acetaminophen (Tylenol Tab) 650 mg Q4H PRN PO PAIN Last administered on 02/11/19at 21:29; Admin Dose 650 MG; Start 01/17/19 at 18:17 Miscellaneous Information (Pending [facility] Order For Wound Care) This patient ramirez... PRN PRN XX WOUND CARE; Start 01/17/19 at 18:17 Albuterol/ Ipratropium (Duoneb) 3 ml Q2H RESP THERAPY PRN HHN SHORTNESS OF BREATH Last administered on 02/13/19at 05:52; Admin Dose 3 ML; Start 01/17/19 at 18:17 Bisacodyl (Dulcolax) 10 mg BID PRN PO CONSTIPATION; Start 01/17/19 at 18:17; Status Hold Folic Acid (Folic Acid) 1 mg DAILY PO Last administered on 02/27/19at 08:19; Admin Dose 1 MG; Start 01/17/19 at 18:17 Latanoprost (Xalatan) 1 drop HS BOTH EYES Last administered on 02/26/19at 21:07; Admin Dose 1 DROP; Start 01/17/19 at 18:17 Nitroglycerin (Nitroglycerin (Sl Tab) 0.4 Mg) 0.4 tab Q5M PRN SL CHEST PAIN; Start 01/17/19 at 18:17 IV Flush (NS 3 ml) 3 ml PER PROTOCOL IV ; Start 01/17/19 at 18:17 Glucose (Glutose) 15 gm Q15M PRN PO DECREASED GLUCOSE; Start 01/17/19 at 18:17 Glucose (Glutose) 22.5 gm Q15M PRN PO DECREASED GLUCOSE; Start 01/17/19 at 18:17 Dextrose (D50w Syringe) 25 ml Q15M PRN IV DECREASED GLUCOSE Last administered on 02/24/19at 04:55; Admin Dose 25 ML; Start 01/17/19 at 18:17 Dextrose (D50w Syringe) 50 ml Q15M PRN IV DECREASED GLUCOSE; Start 01/17/19 at 18:17 Glucagon (Glucagen) 1 mg Q15M PRN IM DECREASED GLUCOSE Last administered on 02/11/19at 17:55; Admin Dose 1 MG; Start 01/17/19 at 18:17 Glucose (Glutose) 15 gm Q15M PRN BUCCAL DECREASED GLUCOSE; Start 01/17/19 at 18:17 Bisacodyl (Dulcolax Supp) 10 mg DAILY PRN [place] CONSTIPATION; Start 01/17/19 at 18:17 Zinc Acetate/ Diphenhydramine (Benadryl 2% Cr) 1 applic Q6H PRN TOP ITCHING Last administered on 02/21/19at 20:38; Admin Dose 1 APPLIC; Start 01/19/19 at 16:37 IV Flush (NS 10 ml) 10 ml PRN PRN IV IV PROTOCOL; Start 01/20/19 at 14:30 Cyanocobalamin (Vitamin B12 Inj) 1,000 mcg Q7D IM Last administered on 02/24/19at 09:21; Admin Dose 1,000 MCG; Start 02/03/19 at 09:00 Metoprolol Tartrate (Lopressor) 5 mg Q4H PRN IV HR>110 Hold SBP<100; Start 01/26/19 at 14:30 Enoxaparin Sodium (Lovenox) 60 mg DAILY SC Last administered on 02/03/19at 08:06; Admin Dose 60 MG; Start 01/28/19 at 09:00; Status Hold Docusate Sodium (Colace Liquid Cup) 100 mg BID NGT ; Start 01/27/19 at 22:00; Status Hold Terazosin HCl (Hytrin) 10 mg HS NGT Last administered on 02/26/19 21:07; Admin Dose 10 MG; Start 01/28/19 at 21:00 Levothyroxine Sodium (Synthroid) 125 mcg BEFORE BREAKFAST NGT Last administered on 02/27/19 06:02; Admin Dose 125 MCG; Start 01/28/19 at 07:00 Ferrous Sulfate (Feosol Liquid Cup) 300 mg WITH MEALS GTB Last administered on 02/27/19 08:18; Admin Dose 300 MG; Start 01/28/19 at 11:30 Multivitamins (Multivitamin) 30 ml DAILY GTB Last administered on 02/27/19 08:19; Admin Dose 30 ML; Start 01/28/19 at 11:00 Nystatin/ Triamcinolone Acetonide (Mycolog Oint) 1 applic BID TOP Last administered on 02/27/19 08:20; Admin Dose 1 APPLIC; Start 01/28/19 at 22:30 Insulin Aspart (Novolog Insulin Pen) NOVOLOG *MILD* ALGORI... Q4 SC Last a dministered on 02/27/19 02:57; Admin Dose 1 UNIT; Start 01/29/19 at 05:00 Albuterol/ Ipratropium (Duoneb) 3 ml Q6HWA RESP THERAPY HHN Last administered on 02/27/19 07:52; Admin Dose 3 ML; Start 01/29/19 at 14:00 Epoetin Dae-epbx (RETACRIT(non-esrd)) 40,000 unit Mo@1700 SC Last administered on 02/24/19 17:37; Admin Dose 40,000 UNIT; Start 02/03/19 at 17:00 Eye Lubricant (Refresh Plus) 1 drop QID BOTH EYES Last administered on 02/27/19 08:19; Admin Dose 1 DROP; Start 02/06/19 at 09:00 Eye Lubricant (Akwa Oint) 1 applic HS LEFT EYE Last administered on 02/26/19 21:07; Admin Dose 1 APPLIC; Start 02/06/19 at 21:00 Multi-Ingredient Ointment (Aquaphor Oint 52.5 Gm) 1 applic BID TOP Last admini stered on 02/27/19 08:20; Admin Dose 1 APPLIC; Start 02/06/19 at 22:40 Morphine Sulfate (morphine) 0.25 mg Q4H PRN IV SEVERE PAIN LEVEL 7-10 Last administered on 02/27/19at 02:55; Admin Dose 0.25 MG; Start 02/15/19 at 11:00 Methylprednisolone Sodium Succinate (Solu-Medrol) 40 mg DAILY IV Last admini stered on 02/27/19at 08:19; Admin Dose 40 MG; Start 02/21/19 at 09:00 Furosemide (Lasix) 40 mg DAILY IV Last administered on 02/27/19 08:19; Admin Dose 40 MG; Start 02/22/19 at 09:00 Lansoprazole (Prevacid) 30 mg BID@0600,1800 NGT Last administered on 02/27/19at 06:02; Admin Dose 30 MG; Start 02/21/19 at 18:00 IV Flush (NS 10 ml) 10 ml PRN PRN IV IV PROTOCOL; Start 02/21/19 at 21:00 Albumin Human 100 ml @ 100 mls/hr WITH DIALYSIS PRN IV SBP <90 DURING DIALYSIS Last administered on 02/25/19at 21:52; Admin Dose 100 MLS/HR; Start 02/24/19 at 14:00 Heparin Sodium (Porcine) (Heparin (1000 Units/ml)) 2,800 unit AFTER DIALYSIS PRN CATHETER Dialysis catheter Last administered on 02/25/19at 23:57; Admin Dose 2,800 UNIT; Start 02/24/19 at 15:00 Miscellaneous Information (*Order Clarification Bulletin) MEDICATION REQUIRES CLARIFICATI... Q8H XX ; Start 02/25/19 at 15:30; Stop 02/27/19 at 15:29 Miscellaneous Information 1 ea NOTE XX ; Start 02/27/19 at 07:30 Miscellaneous Information 1 ea NOTE XX ; Start 02/27/19 at 11:30 Miscellaneous Information 1 ea NOTE XX ; Start 02/27/19 at 12:00 OREN MARSH M.D. Feb 27, 2019 13:01
--- NOTE | 2019-02-27 13:31 | QN ---
Documentation Comment seen and examined see dc IVAN Hernandez MD Feb 27, 2019 13:30
--- NOTE | 2019-02-27 13:32 | PDOCDIS ---
Discharge Instructions DIAGNOSIS Discharge Diagnosis Pneumonia seizures septic shock resp failure MICHELLE on CKD Ansarca G tube placement CONDITION [id number] Patient Condition: [id number] Fair HOME CARE INSTRUCTIONS: [id number] Special Diet: [id number] NPO ACTIVITY: [id number] Activity Restrictions: [id number] Slowly Increase Activity Rest between Activity Avoid heavy lifting FOLLOW UP/APPOINTMENTS Follow-up Plan FU Dr Alatorre in 1 -2 weeks upon dc Plz call nephrology, pulmonary and cardiology on board, neurology IVAN AKHTAR MD Feb 27, 2019 13:32
--- NOTE | 2019-02-27 13:56 | CONS ---
Assessment/Plan Assessment/Plan Hospital Course (Demo Recall) IMPRESSION: 1. Atrial fibrillation, currently rate controlled.-off systemic anticoagulation due to recurrent anemia and GIB when on anticoagulation and acute worsening requiring transfusions. Having some pauses> 3 seconds and HR down to high 30's off joseph agents. -pauses now resolved and remains off all jospeh agents with good HR control 2. Possible congestive heart failure by chest x-ray, which will be diastolic, acute on chronic by most recent echo with an EF of 60%. 3. Tricuspid regurgitation, moderate by most recent echo. 4. Acute on chronic renal failure-mild worsening 5. Possible pneumonia. 6. History of coronary artery disease, status post coronary artery bypass graft surgery. 7. Dyslipidemia. 8. Rheumatoid arthritis. 9. Groin cellulitis. 10. Anemia-worsening again today. s/p endoscopy during this admission 11. Diabetes mellitus. 12. Sepsis/leukocytosis 14. abdominal mass 15. Rash-all over body with skin chaffing at this time, probable drug reaction-significantly improved 16. Encephalopathy-ongoing. MRI negative for acute CVA 17. coagulopathy-ongoing and mildly improved at last check 02/26 18. Dysphagia s/p pEG placement Recc: -on tele -serial ecg's -Continue statin -Continue broad spectrum abx's and f/u cx data -Contineu topical treatment to skin -will resume asa 81 mg for stroke prevention in AF as tolerated -BB d/c'd given rashel and pauses -transfuse PRBC's as necessary -Now on HD for volume control and daily IV lasix as tolerated -now on steroids/bronchodilators follow resp status closely. Use BIPAP as necessary -Now full code but speaking with family about direction of care and code status -For PEG placement today Consultation Date/Type/Reason Admit Date/Time Jan 17, 2019 at 15:58 Initial Consult Date 01/18/19 Type of Consult Cardiology Reason for Consultation AF Requesting Provider: IVAN AKHTAR MD Date/Time of Note DATE: 02/27/19 TIME: 13:52 Exam/Review of Systems Vital Signs Vitals Vital Signs Date Temp Pulse Resp B/P (MAP) Pulse Ox O2 O2 Flow FiO2 Time Delivery Rate 02/27/19 66 12:00 02/27/19 97.9 20 128/61 100 Nasal 11:14 (83) Cannula 02/27/19 3.0 08:15 02/26/19 24 20:39 Intake and Output 02/26/19 02/26/19 02/27/19 1515:00 23:00 07:00 IntakeIntake Total 250 ml OutputOutput Total 1300 ml 500 ml BalanceBalance -1300 ml -250 ml Exam Exam Review of Systems: CONSTITUTIONAL: No fevers, chills. PULMONARY: No sob CARDIOVASCULAR: No chest pain/palpitations GASTROINTESTINAL: No nausea/vomiting. GENITOURINARY: No hematuria/dysuria. MUSCULOSKELETAL: No myagias/arthalgias. PSYCHIATRIC: The patient denies depression. NEUROLOGIC: lethargic but significantly improved Constitutional: alert Psych: no complaints Head: normocephalic ENMT: mucosa pink and moist Neck: supple, jvd (9 cm water) Respiratory: diminished breath sounds (at bases/B) Cardiovascular: irregular rhythm Gastrointestinal: soft, non-tender Musculoskeletal: muscle weakness (generalized) Extremities: edema (none) Neurological: lethargic (somewhat improved overall) Skin: other (significantly improved rash) Labs Result Diagram: 02/26/19 0641 02/27/19 1208 Results 24hrs Laboratory Tests Test 02/26/19 15:29 02/26/19 18:26 02/26/19 21:04 02/27/19 02:08 Bedside Glucose 161 162 220 147 Test 02/27/19 06:11 02/27/19 08:23 02/27/19 12:08 02/27/19 13:28 Bedside Glucose 122 122 189 Sodium Level 139 Potassium Level 3.6 Chloride Level 102 Carbon Dioxide Level 33 H Anion Gap 4 L Blood Urea Nitrogen 42 H Creatinine 1.22 Est Glomerular Filtrat Rate mL/min Glucose Level 180 Calcium Level 8.2 L Medications Medications Current Medications Acetaminophen (Tylenol Tab) 650 mg Q4H PRN PO PAIN Last administered on at 21:29; Admin Dose 650 MG; Start 01/17/19 at 18:17 Miscellaneous Information (Pending [facility] Order For Wound Care) This patient ramirez... PRN PRN XX WOUND CARE; Start 01/17/19 at 18:17 Albuterol/ Ipratropium (Duoneb) 3 ml Q2H RESP THERAPY PRN HHN SHORTNESS OF BREATH Last administered on 02/13/19at 05:52; Admin Dose 3 ML; Start 01/17/19 at 18:17 Bisacodyl (Dulcolax) 10 mg BID PRN PO CONSTIPATION; Start 01/17/19 at 18:17; Status Hold Folic Acid (Folic Acid) 1 mg DAILY PO Last administered on 02/27/19at 08:19; Admin Dose 1 MG; Start 01/17/19 at 18:17 Latanoprost (Xalatan) 1 drop HS BOTH EYES Last administered on 02/26/19at 21:07; Admin Dose 1 DROP; Start 01/17/19 at 18:17 Nitroglycerin (Nitroglycerin (Sl Tab) 0.4 Mg) 0.4 tab Q5M PRN SL CHEST PAIN; Start 01/17/19 at 18:17 IV Flush (NS 3 ml) 3 ml PER PROTOCOL IV ; Start 01/17/19 at 18:17 Glucose (Glutose) 15 gm Q15M PRN PO DECREASED GLUCOSE; Start 01/17/19 at 18:17 Glucose (Glutose) 22.5 gm Q15M PRN PO DECREASED GLUCOSE; Start 01/17/19 at 18:17 Dextrose (D50w Syringe) 25 ml Q15M PRN IV DECREASED GLUCOSE Last administered on 02/24/19at 04:55; Admin Dose 25 ML; Start 01/17/19 at 18:17 Dextrose (D50w Syringe) 50 ml Q15M PRN IV DECREASED GLUCOSE; Start 01/17/19 at 18:17 Glucagon (Glucagen) 1 mg Q15M PRN IM DECREASED GLUCOSE Last administered on 02/11/19at 17:55; Admin Dose 1 MG; Start 01/17/19 at 18:17 Glucose (Glutose) 15 gm Q15M PRN BUCCAL DECREASED GLUCOSE; Start 01/17/19 at 18:17 Bisacodyl (Dulcolax Supp) 10 mg DAILY PRN [place] CONSTIPATION; Start 01/17/19 at 18:17 Zinc Acetate/ Diphenhydramine (Benadryl 2% Cr) 1 applic Q6H PRN TOP ITCHING Last administered on 02/21/19at 20:38; Admin Dose 1 APPLIC; Start 01/19/19 at 16:37 IV Flush (NS 10 ml) 10 ml PRN PRN IV IV PROTOCOL; Start 01/20/19 at 14:30 Cyanocobalamin (Vitamin B12 Inj) 1,000 mcg Q7D IM Last administered on 02/24/19 09:21; Admin Dose 1,000 MCG; Start 02/03/19 at 09:00 Metoprolol Tartrate (Lopressor) 5 mg Q4H PRN IV HR>110 Hold SBP<100; Start 01/26/19 at 14:30 Enoxaparin Sodium (Lovenox) 60 mg DAILY SC Last administered on 02/03/19 08:06; Admin Dose 60 MG; Start 01/28/19 at 09:00; Status Hold Docusate Sodium (Colace Liquid Cup) 100 mg BID NGT ; Start 01/27/19 at 22:00; Status Hold Terazosin HCl (Hytrin) 10 mg HS NGT Last administered on 02/26/19 21:07; Admin Dose 10 MG; Start 01/28/19 at 21:00 Levothyroxine Sodium (Synthroid) 125 mcg BEFORE BREAKFAST NGT Last administered on 02/27/19 06:02; Admin Dose 125 MCG; Start 01/28/19 at 07:00 Ferrous Sulfate (Feosol Liquid Cup) 300 mg WITH MEALS GTB Last administered on 02/27/19 13:20; Admin Dose 300 MG; Start 01/28/19 at 11:30 Multivitamins (Multivitamin) 30 ml DAILY GTB Last administered on 02/27/19 08:19; Admin Dose 30 ML; Start 01/28/19 at 11:00 Nystatin/ Triamcinolone Acetonide (Mycolog Oint) 1 applic BID TOP Last administered on 02/27/19 08:20; Admin Dose 1 APPLIC; Start 01/28/19 at 22:30 Insulin Aspart (Novolog Insulin Pen) NOVOLOG *MILD* ALGORI... Q4 SC Last administered on 02/27/19 13:47; Admin Dose 2 UNIT; Start 01/29/19 at 05:00 Albuterol/ Ipratropium (Duoneb) 3 ml Q6HWA RESP THERAPY HHN Last administered on 02/27/19 07:52; Admin Dose 3 ML; Start 01/29/19 at 14:00 Epoetin Dae-epbx (RETACRIT(non-esrd)) 40,000 unit Mo@1700 SC Last administered on 02/24/19 17:37; Admin Dose 40,000 UNIT; Start 02/03/19 at 17:00 Eye Lubricant (Refresh Plus) 1 drop QID BOTH EYES Last administered on 02/27/19 13:21; Admin Dose 1 DROP; Start 02/06/19 at 09:00 Eye Lubricant (Akwa Oint) 1 applic HS LEFT EYE Last administered on 02/26/19 21:07; Admin Dose 1 APPLIC; Start 02/06/19 at 21:00 Multi-Ingredient Ointment (Aquaphor Oint 52.5 Gm) 1 applic BID TOP Last administered on 02/27/19 08:20; Admin Dose 1 APPLIC; Start 02/06/19 at 22:40 Morphine Sulfate (morphine) 0.25 mg Q4H PRN IV SEVERE PAIN LEVEL 7-10 Last administered on 02/27/19 02:55; Admin Dose 0.25 MG; Start 02/15/19 at 11:00 Methylprednisolone Sodium Succinate (Solu-Medrol) 40 mg DAILY IV Last administered on 02/27/19 08:19; Admin Dose 40 MG; Start 02/21/19 at 09:00 Furosemide (Lasix) 40 mg DAILY IV Last administered on 02/27/19 08:19; Admin Dose 40 MG; Start 02/22/19 at 09:00 Lansoprazole (Prevacid) 30 mg BID@0600,1800 NGT Last administered on 02/27/19 06:02; Admin Dose 30 MG; Start 02/21/19 at 18:00 IV Flush (NS 10 ml) 10 ml PRN PRN IV IV PROTOCOL; Start 02/21/19 at 21:00 Albumin Human 100 ml @ 100 mls/hr WITH DIALYSIS PRN IV SBP <90 DURING DIALYSIS Last administered on 02/25/19 21:52; Admin Dose 100 MLS/HR; Start 02/24/19 at 14:00 Heparin Sodium (Porcine) (Heparin (1000 Units/ml)) 2,800 unit AFTER DIALYSIS PRN CATHETER Dialysis catheter Last administered on 02/25/19 23:57; Admin Dose 2,800 UNIT; Start 02/24/19 at 15:00 Miscellaneous Information (*Order Clarification Bulletin) MEDICATION REQUIRES CLARIFICATI... Q8H XX ; Start 02/25/19 at 15:30; Stop 02/27/19 at 15:29 Miscellaneous Information 1 ea NOTE XX ; Start 02/27/19 at 07:30 Miscellaneous Information 1 ea NOTE XX ; Start 02/27/19 at 11:30 Miscellaneous Information 1 ea NOTE XX ; Start 02/27/19 at 12:00 MARJORIE JAIN Feb 27, 2019 13:56
--- NOTE | 2019-02-27 15:12 | CONS ---
Assessment/Plan Assessment/Plan Hospital Course (Demo Recall) No events looks comfortable, no fevers, family at bedside Antimicrobials: none Indwelling: PICC Wade catheter, NG tube, right femoral Yogesh Allergy: Penicillin, sulfa Physical examination: Obese well-developed chronically ill-appearing - [place] man who is lethargic, in no distress. Head atraumatic normocephalic sclera nonicteric. Neck is supple chest rise symmetrical breath sounds diminished bases. Heart: S1-S2. Abdomen obese soft bowel sounds present extremities without cyanosis, bilateral edema Assessment: 1. S/p sepsis with shock 2. Acute hypoxemic respiratory failure, likely ongoing aspiration 2. Acute encephalopathy 3. S/p seizures 4. S/p Healthcare acquired pneumonia==> treated 5. Coronary artery disease/history of CABG 6. Advanced rheumatoid arthritis 5. Chronic atrial fibrillation 6. Diabetes 7. BPH 9. Acute on chronic anemia===> s/p EGD/colonoscopy 01/09/19 10. Status post right epididymitis 11. Pancreatic lesion per CT, unlikely neoplasm per oncology notes 12. 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 Skin lesions, s/p punch bx, pathology consistent with allergic reaction 14. Acute renal failure 15. DNR/DNI Plan: Remains stable off antibiotics, continue present care, repeat cx's prn, hemodialysis per renal Consultation Date/Type/Reason Admit Date/Time Jan 17, 2019 at 15:58 Initial Consult Date 01/18/19 Type of Consult id Requesting Provider: IVAN AKHTAR MD Date/Time of Note DATE: 02/27/19 TIME: 15:11 Exam/Review of Systems Exam Vitals Vital Signs Date Temp Pulse Resp B/P (MAP) Pulse Ox O2 O2 Flow FiO2 Time Delivery Rate 02/27/19 100 4.0 14:38 02/27/19 71 20 Nasal 14:37 Cannula 02/27/19 97.9 128/61 11:14 (83) 02/26/19 24 20:39 Intake and Output 02/26/19 02/26/19 02/27/19 1515:00 23:00 07:00 IntakeIntake Total 250 ml OutputOutput Total 1300 ml 500 ml BalanceBalance -1300 ml -250 ml Results Result Diagram: 02/26/19 0641 02/27/19 1208 Results 24hrs Laboratory Tests Test 02/26/19 15:29 02/26/19 18:26 02/26/19 21:04 02/27/19 02:08 Bedside Glucose 161 162 220 147 Test 02/27/19 06:11 02/27/19 08:23 02/27/19 12:08 02/27/19 13:28 Bedside Glucose 122 122 189 Sodium Level 139 Potassium Level 3.6 Chloride Level 102 Carbon Dioxide Level 33 H Anion Gap 4 L Blood Urea Nitrogen 42 H Creatinine 1.22 Est Glomerular Filtrat Rate mL/min Glucose Level 180 Calcium Level 8.2 L Medications Medication Current Medications Acetaminophen (Tylenol Tab) 650 mg Q4H PRN PO PAIN Last administered on 02/11/19at 21:29; Admin Dose 650 MG; Start 01/17/19 at 18:17 Miscellaneous Information (Pending [facility] Order For Wound Care) This patient ramirez... PRN PRN XX WOUND CARE; Start 01/17/19 at 18:17 Albuterol/ Ipratropium (Duoneb) 3 ml Q2H RESP THERAPY PRN HHN SHORTNESS OF BREATH Last administered on 02/13/19at 05:52; Admin Dose 3 ML; Start 01/17/19 at 18:17 Bisacodyl (Dulcolax) 10 mg BID PRN PO CONSTIPATION; Start 01/17/19 at 18:17; Status Hold Folic Acid (Folic Acid) 1 mg DAILY PO Last administered on 02/27/19at 08:19; Adm in Dose 1 MG; Start 01/17/19 at 18:17 Latanoprost (Xalatan) 1 drop HS BOTH EYES Last administered on 02/26/19at 21:07; Admin Dose 1 DROP; Start 01/17/19 at 18:17 Nitroglycerin (Nitroglycerin (Sl Tab) 0.4 Mg) 0.4 tab Q5M PRN SL CHEST PAIN; Start 01/17/19 at 18:17 IV Flush (NS 3 ml) 3 ml PER PROTOCOL IV ; Start 01/17/19 at 18:17 Glucose (Glutose) 15 gm Q15M PRN PO DECREASED GLUCOSE; Start 01/17/19 at 18:17 Glucose (Glutose) 22.5 gm Q15M PRN PO DECREASED GLUCOSE; Start 01/17/19 at 18:17 Dextrose (D50w Syringe) 25 ml Q15M PRN IV DECREASED GLUCOSE Last administered on 02/24/19 04:55; Admin Dose 25 ML; Start 01/17/19 at 18:17 Dextrose (D50w Syringe) 50 ml Q15M PRN IV DECREASED GLUCOSE; Start 01/17/19 at 18:17 Glucagon (Glucagen) 1 mg Q15M PRN IM DECREASED GLUCOSE Last administered on 02/11/19at 17:55; Admin Dose 1 MG; Start 01/17/19 at 18:17 Glucose (Glutose) 15 gm Q15M PRN BUCCAL DECREASED GLUCOSE; Start 01/17/19 at 18:17 Bisacodyl (Dulcolax Supp) 10 mg DAILY PRN [place] CONSTIPATION; Start 01/17/19 at 18:17 Zinc Acetate/ Diphenhydramine (Benadryl 2% Cr) 1 applic Q6H PRN TOP ITCHING Las t administered on 02/21/19at 20:38; Admin Dose 1 APPLIC; Start 01/19/19 at 16:37 IV Flush (NS 10 ml) 10 ml PRN PRN IV IV PROTOCOL; Start 01/20/19 at 14:30 Cyanocobalamin (Vitamin B12 Inj) 1,000 mcg Q7D IM Last administered on 02/24/19 09:21; Admin Dose 1,000 MCG; Start 02/03/19 at 09:00 Enoxaparin Sodium (Lovenox) 60 mg DAILY SC Last administered on 02/03/19at 08:06; Admin Dose 60 MG; Start 01/28/19 at 09:00; Status Hold Docusate Sodium (Colace Liquid Cup) 100 mg BID NGT ; Start 01/27/19 at 22:00; Status Hold Terazosin HCl (Hytrin) 10 mg HS NGT Last administered on 02/26/19at 21:07; Admin Dose 10 MG; Start 01/28/19 at 21:00 Levothyroxine Sodium (Synthroid) 125 mcg BEFORE BREAKFAST NGT Last administered on 02/27/19 06:02; Admin Dose 125 MCG; Start 01/28/19 at 07:00 Ferrous Sulfate (Feosol Liquid Cup) 300 mg WITH MEALS GTB Last administered on 02/27/19at 13:20; Admin Dose 300 MG; Start 01/28/19 at 11:30 Multivitamins (Multivitamin) 30 ml DAILY GTB Last administered on 02/27/19 08:19; Admin Dose 30 ML; Start 01/28/19 at 11:00 Nystatin/ Triamcinolone Acetonide (Mycolog Oint) 1 applic BID TOP Last administered on 02/27/19 08:20; Admin Dose 1 APPLIC; Start 01/28/19 at 22:30 Insulin Aspart (Novolog Insulin Pen) NOVOLOG *MILD* ALGORI... Q4 SC Last administered on 02/27/19 13:47; Admin Dose 2 UNIT; Start 01/29/19 at 05:00 Albuterol/ Ipratropium (Duoneb) 3 ml Q6HWA RESP THERAPY HHN Last administered on 02/27/19 14:34; Admin Dose 3 ML; Start 01/29/19 at 14:00 Epoetin Dae-epbx (RETACRIT(non-esrd)) 40,000 unit Mo@1700 SC Last administered on 02/24/19 17:37; Admin Dose 40,000 UNIT; Start 02/03/19 at 17:00 Eye Lubricant (Refresh Plus) 1 drop QID BOTH EYES Last administered on 02/27/19 13:21; Admin Dose 1 DROP; Start 02/06/19 at 09:00 Eye Lubricant (Akwa Oint) 1 applic HS LEFT EYE Last administered on 02/26/19 21:07; Admin Dose 1 APPLIC; Start 02/06/19 at 21:00 Multi-Ingredient Ointment (Aquaphor Oint 52.5 Gm) 1 applic BID TOP Last administered on 02/27/19 08:20; Admin Dose 1 APPLIC; Start 02/06/19 at 22:40 Morphine Sulfate (morphine) 0.25 mg Q4H PRN IV SEVERE PAIN LEVEL 7-10 Last administered on 02/27/19 02:55; Admin Dose 0.25 MG; Start 02/15/19 at 11:00 Methylprednisolone Sodium Succinate (Solu-Medrol) 40 mg DAILY IV Last administered on 02/27/19 08:19; Admin Dose 40 MG; Start 02/21/19 at 09:00 Furosemide (Lasix) 40 mg DAILY IV Last administered on 02/27/19 08:19; Admin Dose 40 MG; Start 02/22/19 at 09:00 Lansoprazole (Prevacid) 30 mg BID@0600,1800 NGT Last administered on 02/27/19at 06:02; Admin Dose 30 MG; Start 02/21/19 at 18:00 IV Flush (NS 10 ml) 10 ml PRN PRN IV IV PROTOCOL; Start 02/21/19 at 21:00 Albumin Human 100 ml @ 100 mls/hr WITH DIALYSIS PRN IV SBP <90 DURING DIALYSIS Last administered on 02/25/19at 21:52; Admin Dose 100 MLS/HR; Start 02/24/19 at 14:00 Heparin Sodium (Porcine) (Heparin (1000 Units/ml)) 2,800 unit AFTER DIALYSIS PRN CATHETER Dialysis catheter Last administered on 02/25/19at 23:57; Admin Dose 2,800 UNIT; Start 02/24/19 at 15:00 Miscellaneous Information (*Order Clarification Bulletin) MEDICATION REQUIRES CLARIFICATI... Q8H XX ; Start 02/25/19 at 15:30; Stop 02/27/19 at 15:29 Miscellaneous Information 1 ea NOTE XX ; Start 02/27/19 at 07:30 Miscellaneous Information 1 ea NOTE XX ; Start 02/27/19 at 11:30 Miscellaneous Information 1 ea NOTE XX ; Start 02/27/19 at 12:00 LUCIAN HARKINS NP Feb 27, 2019 15:12
--- NOTE | 2019-02-27 15:27 | CONS ---
Assessment/Plan Assessment/Plan Assessment/Plan (Recall) 88 yo M with multiple comorbidities who initially presented for evaluation of hiccups. He was noted to become acutely altered... for which neurology is consulted. He has been transferred to the ICU on several occasions due to ams in the context of respiratory distress/hemodynamic instability and ? seizures.. The clinical picture suggests an acute toxic-metabolic encephalopathy.. Meningoencephalitis is, though, not entirely excluded. MRI brain is without acute ischemia, though notable for chronic infarcts. EEG was without ongoing epileptiform activity LP for CSF valuation was declined by medical decision makers. P: OK to Cont Keppra 500 BID for now Ativan IV PRN prolonged seizure (> 5 min) Agree w/ ASA/Lipitor daily pending the above Limit sedating medications where possible Other medical management per primary Will follow clinically Consultation Date/Type/Reason Admit Date/Time Jan 17, 2019 at 15:58 Type of Consult Neurology Requesting Provider: IVAN AKHTAR MD Date/Time of Note DATE: 02/27/19 TIME: 15:27 24 HR Interval Summary Free Text/Dictation Continues acute care. Exam/Review of Systems Exam Vitals Vital Signs Date Temp Pulse Resp B/P (MAP) Pulse Ox O2 O2 Flow FiO2 Time Delivery Rate 02/27/19 97.6 75 20 141/64 99 Nasal 15:25 (89) Cannula 02/27/19 4.0 14:38 02/26/19 24 20:39 Intake and Output 02/26/19 02/26/19 02/27/19 1515:00 23:00 07:00 IntakeIntake Total 250 ml OutputOutput Total 1300 ml 500 ml BalanceBalance -1300 ml -250 ml Exam PE: Gen Appearance: No Apparent Distress HEENT: Normocephalic Cardiovascular: Regular rate Lungs: Clear bilaterally Abdomen: Soft Extremities: Dry NE: The patient was alert, though somewhat disoriented. Language was normal. Fund of knowledge was limited. Pupils were equal and reactive to light. There was no afferent pupillary defect. Visual munoz were normal. Funduscopic examination was limited. Extra-ocular movements were full. Ptosis was absent. There was no nystagmus. Facial sensation was normal. Face was symmetric with normal strength. Hearing was intact. Palate movements were normal. Neck strength was normal. There was normal tongue bulk and speed of movement. Tone was normal. Muscle bulk was normal. I did not see fasciculations. Arms and legs were symmetric. Vibration sensation was normal. Temperature and pinprick sensation was normal. Arm and leg reflexes were 2+ and symmetric. Gray's sign was absent. Plantar responses were flexor. Results Result Diagram: 02/26/19 0641 02/27/19 1208 Results 24hrs Laboratory Tests Test 02/26/19 15:29 02/26/19 18:26 02/26/19 21:04 02/27/19 02:08 Bedside Glucose 161 162 220 147 Test 02/27/19 06:11 02/27/19 08:23 02/27/19 12:08 02/27/19 13:28 Bedside Glucose 122 122 189 Sodium Level 139 Potassium Level 3.6 Chloride Level 102 Carbon Dioxide Level 33 H Anion Gap 4 L Blood Urea Nitrogen 42 H Creatinine 1.22 Est Glomerular Filtrat Rate mL/min Glucose Level 180 Calcium Level 8.2 L Medications Medication Current Medications Acetaminophen (Tylenol Tab) 650 mg Q4H PRN PO PAIN Last administered on 02/11/19 at 21:29; Admin Dose 650 MG; Start 01/17/19 at 18:17 Miscellaneous Information (Pending [facility] Order For Wound Care) This patient ramirez... PRN PRN XX WOUND CARE; Start 01/17/19 at 18:17 Albuterol/ Ipratropium (Duoneb) 3 ml Q2H RESP THERAPY PRN HHN SHORTNESS OF BREATH Last administered on 02/13/19at 05:52; Admin Dose 3 ML; Start 01/17/19 at 18:17 Bisacodyl (Dulcolax) 10 mg BID PRN PO CONSTIPATION; Start 01/17/19 at 18:17; Status Hold Folic Acid (Folic Acid) 1 mg DAILY PO Last administered on 02/27/19at 08:19; Admin Dose 1 MG; Start 01/17/19 at 18:17 Latanoprost (Xalatan) 1 drop HS BOTH EYES Last administered on 02/26/19at 21:07; Admin Dose 1 DROP; Start 01/17/19 at 18:17 Nitroglycerin (Nitroglycerin (Sl Tab) 0.4 Mg) 0.4 tab Q5M PRN SL CHEST PAIN; Start 01/17/19 at 18:17 IV Flush (NS 3 ml) 3 ml PER PROTOCOL IV ; Start 01/17/19 at 18:17 Glucose (Glutose) 15 gm Q15M PRN PO DECREASED GLUCOSE; Start 01/17/19 at 18:17 Glucose (Glutose) 22.5 gm Q15M PRN PO DECREASED GLUCOSE; Start 01/17/19 at 18:17 Dextrose (D50w Syringe) 25 ml Q15M PRN IV DECREASED GLUCOSE Last administered on 02/24/19at 04:55; Admin Dose 25 ML; Start 01/17/19 at 18:17 Dextrose (D50w Syringe) 50 ml Q15M PRN IV DECREASED GLUCOSE; Start 01/17/19 at 18:17 Glucagon (Glucagen) 1 mg Q15M PRN IM DECREASED GLUCOSE Last administered on 02/11/19at 17:55; Admin Dose 1 MG; Start 01/17/19 at 18:17 Glucose (Glutose) 15 gm Q15M PRN BUCCAL DECREASED GLUCOSE; Start 01/17/19 at 18:17 Bisacodyl (Dulcolax Supp) 10 mg DAILY PRN OK CONSTIPATION; Start 01/17/19 at 18:17 Zinc Acetate/ Diphenhydramine (Benadryl 2% Cr) 1 applic Q6H PRN TOP ITCHING Last administered on 02/21/19at 20:38; Admin Dose 1 APPLIC; Start 01/19/19 at 16:37 IV Flush (NS 10 ml) 10 ml PRN PRN IV IV PROTOCOL; Start 01/20/19 at 14:30 Cyanocobalamin (Vitamin B12 Inj) 1,000 mcg Q7D IM Last administered on 02/24/19at 09:21; Admin Dose 1,000 MCG; Start 02/03/19 at 09:00 Enoxaparin Sodium (Lovenox) 60 mg DAILY SC Last administered on 02/03/19at 08:06; Admin Dose 60 MG; Start 01/28/19 at 09:00; Status Hold Docusate Sodium (Colace Liquid Cup) 100 mg BID NGT ; Start 01/27/19 at 22:00; Status Hold Terazosin HCl (Hytrin) 10 mg HS NGT Last administered on 02/26/19at 21:07; Admin Dose 10 MG; Start 01/28/19 at 21:00 Levothyroxine Sodium (Synthroid) 125 mcg BEFORE BREAKFAST NGT Last administered on 02/27/19 06:02; Admin Dose 125 MCG; Start 01/28/19 at 07:00 Ferrous Sulfate (Feosol Liquid Cup) 300 mg WITH MEALS GTB Last administered on 02/27/19 13:20; Admin Dose 300 MG; Start 01/28/19 at 11:30 Multivitamins (Multivitamin) 30 ml DAILY GTB Last administered on 02/27/19 08:19; Admin Dose 30 ML; Start 01/28/19 at 11:00 Nystatin/ Triamcinolone Acetonide (Mycolog Oint) 1 applic BID TOP Last administered on 02/27/19 08:20; Admin Dose 1 APPLIC; Start 01/28/19 at 22:30 Insulin Aspart (Novolog Insulin Pen) NOVOLOG *MILD* ALGORI... Q4 SC Last administered on 02/27/19 13:47; Admin Dose 2 UNIT; Start 01/29/19 at 05:00 Albuterol/ Ipratropium (Duoneb) 3 ml Q6HWA RESP THERAPY HHN Last administered on 02/27/19 14:34; Admin Dose 3 ML; Start 01/29/19 at 14:00 Epoetin Dae-epbx (RETACRIT(non-esrd)) 40,000 unit Mo@1700 SC Last administered on 02/24/19 17:37; Admin Dose 40,000 UNIT; Start 02/03/19 at 17:00 Eye Lubricant (Refresh Plus) 1 drop QID BOTH EYES Last administered on 02/27/19 13:21; Admin Dose 1 DROP; Start 02/06/19 at 09:00 Eye Lubricant (Akwa Oint) 1 applic HS LEFT EYE Last administered on 02/26/19 21:07; Admin Dose 1 APPLIC; Start 02/06/19 at 21:00 Multi-Ingredient Ointment (Aquaphor Oint 52.5 Gm) 1 applic BID TOP Last administered on 02/27/19 08:20; Admin Dose 1 APPLIC; Start 02/06/19 at 22:40 Morphine Sulfate (morphine) 0.25 mg Q4H PRN IV SEVERE PAIN LEVEL 7-10 Last administered on 02/27/19 02:55; Admin Dose 0.25 MG; Start 02/15/19 at 11:00 Methylprednisolone Sodium Succinate (Solu-Medrol) 40 mg DAILY IV Last administered on 02/27/19 08:19; Admin Dose 40 MG; Start 02/21/19 at 09:00 Furosemide (Lasix) 40 mg DAILY IV Last administered on 02/27/19 08:19; Admin Dose 40 MG; Start 02/22/19 at 09:00 Lansoprazole (Prevacid) 30 mg BID@0600,1800 NGT Last administered on 02/27/19at 06:02; Admin Dose 30 MG; Start 02/21/19 at 18:00 IV Flush (NS 10 ml) 10 ml PRN PRN IV IV PROTOCOL; Start 02/21/19 at 21:00 Albumin Human 100 ml @ 100 mls/hr WITH DIALYSIS PRN IV SBP <90 DURING DIALYSIS Last administered on 02/25/19at 21:52; Admin Dose 100 MLS/HR; Start 02/24/19 at 14:00 Heparin Sodium (Porcine) (Heparin (1000 Units/ml)) 2,800 unit AFTER DIALYSIS PRN CATHETER Dialysis catheter Last administered on 02/25/19at 23:57; Admin Dose 2,800 UNIT; Start 02/24/19 at 15:00 Miscellaneous Information (*Order Clarification Bulletin) MEDICATION REQUIRES CLARIFICATI... Q8H XX ; Start 02/25/19 at 15:30; Stop 02/27/19 at 15:29 Miscellaneous Information 1 ea NOTE XX ; Start 02/27/19 at 07:30 Miscellaneous Information 1 ea NOTE XX ; Start 02/27/19 at 11:30 Miscellaneous Information 1 ea NOTE XX ; Start 02/27/19 at 12:00 NEGRA CORONA NP Feb 27, 2019 15:27
--- NOTE | 2019-02-27 18:50 | DS ---
DATE OF ADMISSION: 01/17/2019 DATE OF DISCHARGE: 02/27/2019 HISTORY OF PRESENTING ILLNESS AND HOSPITAL COURSE: This 88-year-old male with a past medical history of recent pneumonia, sepsis, rheumatoid arthritis, COPD, former smoker, degenerative disk disease, h istory of CABG x2 in the past, diabetes, was in ARU for rehabilitation after sepsis, pneumonia, sever e rheumatoid arthritis. The patient had limited participation there due to recurrent sepsis and pneu monia. He was transferred today to the med/surg floor. The patient has not been able do out of the bed for the past 2 to 3 weeks. The patient also had severe anemia, required blood transfusion. The patient was transferred from rehabilitation ARU to med/surg unit secondary to severe sepsis, leukocyt osis. The patient was seen by ID consultation. White count was 19.3. Chest x-ray showed bilateral patchy perihilar, increased interstitial changes showing with pulmonary vascular congestion. The pat ient was started on ertapenem and Cancidas. The patient was then seen by Dr. Johnson also for cardiol ogy consultation and recommendations were followed. The patient had waxing and waning course. Over the course of time, the patient started becoming more altered, was transferred to telemetry floor. T he patient had an episode on 01/22/2019 where patient became all of a sudden became altered. The pat ient had been not on any narcotics. The patient was noted to have right arm weakness. The patient h ad a CT of the head which was negative for any mass, shift or bleed. Since the patient had CKD, the family did not want to take the chance of getting CT angio. I explained to the family that it would delay the diagnosis and treatment; however they wanted to wait for the second opinion. Neurology con sultation was obtained from Dr. Sutherland in-house. CTA was without ischemia notable for chronic infarct . ____ notable for a right ICA occlusion. 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 We wanted t o get an MRI. The patient was continued on aspirin and Lipitor. Permissive hypertension was maintai casimiro; however, speech and OT were consulted. The patient had an NG tube. The patient was then transf erred to ICU because of worsening mental status. The patient was also having worsening rash on the b ilateral upper and lower extremities and also on the face. It was initially thought that probably it was secondary to the antibiotics. The patient was discharged home. Some thoughts were per daughter could be from [facility]. The patient was also started on IV steroids. Pulmonary and neurology recomm endations were followed. The patient was also found to be anemic requiring blood transfusions here a nd there. The patient was started on vitamin B12 as vitamin B12 was low normal but lactic acid was e levated. There was no evidence of any hemolysis. The patient was also started on Procrit. The sinai ent was kept in and out of the ICU, was on BiPAP. Initially, the patient was made DNR, then the code status was again changed to full code. The patient had waxing and waning course, getting better and then worse, so that is why the patient had a prolonged hospitalization stay. Dr. Gao consultat ion was obtained. Initially, the patient was made DNR then reverted back. The patient was seen by Mir Dixon and had left subclavian central line placement due to sepsis. The patient was also star singh on IV Keppra for seizures. EEG was done that showed diffuse slowing. The patient was also start ed on pressors. The patient was also given IV steroids, continued on broad spectrum antibiotics like vancomycin, aztreonam and caspofungin. White count had also gone up to 34. The patient had waxing and waning course. He was then again transferred out of the ICU; however, then again became altered, had hypercapnic respiratory failure. pH was 7.2, pCO2 of 57. The patient was then kept on BiPAP ag ain. Repeatedly, conversations were made with the family about the code status. Finally, the patien t came off of pressors. The patient came off of all antibiotics. The patient was also seen by [facility] [place] consultation and according to them, it could have been ____ due to some antibiotics; however, they did not think that the patient had Merrill-Serafin syndrome. The patient had an NG tube, but ac cording to the speech, due to altered mental issues, the patient would have any difficulty swallowing . A decision was made to put in a G-tube as the patient's respiratory status was very waxing and wan ing. He required high flow, then intermittently with BiPAP. The patient was having worsening uremia and worsening anasarca and it was decided to start the patient on hemodialysis. The patient receive d 3 sessions of hemodialysis. After that, the patient was much improved, although the patient was al so having urine output. Labs improved. Uremia improved to 42. The patient's mental condition impro katherine drastically. The patient also had an MRI of the brain which did not show any acute intracranial abnormality. The patient had thoracentesis also that removed 1 liter of fluid. The patient's condit ion got stabilized. White count came down to 7.7, hemoglobin 7.9. The patient was still requiring P T, OT. Mental status had improved. Rash had improved. Anasarca had improved. Determination had to be made if patient is going to be continuing on dialysis. Multiple discussions were made with the marija jaeger and it was decided to send the patient to [facility] for long-term for a few weeks as [facility] would not accept the patient since the patient is needed to be continued on hemodialysis. FINAL DISCHARGE DIAGNOSES: 1. Altered mental status likely due to stroke; however MRI was positive for old infarct. EKG showed diffuse slowing, so this could be secondary to metabolic encephalopathy versus secondary to seizure. 2. Septic shock, resolved, secondary to pneumonia. 3. Hypothermia secondary to septic shock, resolved. 4. Severe anemia, likely to be anemia of chronic disease, on Epogen. 5. Acute on chronic renal failure with uremia, sepsis. The patient was initiated on hemodialysis, s tatus post 3 sessions. Now, the patient will be determined if patient needs long-term dialysis. 6. Hypertension. 7. Respiratory failure. 8. Anasarca. 9. Hyperlipidemia. 10. Hypothyroidism. 11. Bilateral groin cellulitis. 12. History of rheumatoid arthritis. 13. Diabetes type 2. 14. History of CABG x2. 15. Peripheral vascular disease. 16. Chronic atrial fibrillation. The patient was started on Lovenox and aspirin. However, the sinai ent would not tolerate Lovenox and would start bleeding. Per cardiology, continue him on aspirin. 17. 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 18. Skin reaction is likely secondary to antibiotics. No Amrik Serafin. Much improved. 19. Hypernatremia due to dehydration, improving. 20. Metabolic alkalosis, improved. 21. Dysphagia status post G-tube. DISCHARGE CONDITION: Fair. DISCHARGE MEDICATIONS: 1. Aspirin 81. 2. Lovenox will be on hold. 3. Solu-Medrol 40 mg IV daily. 4. Lasix 40 mg IV daily. 5. Lansoprazole 30. 6. Morphine 0.25 p.r.n. 7. Epogen 40,000 units every Sunday. 8. Vitamin B12 injection q.7 days. 9. Albuterol nebs. 10. Nystatin cream. 11. Terazosin 10 at bedtime. 12. Iron sulfate 300 with meals. 13. Multivitamins. 14. Levothyroxine 125. 15. Zinc sulfate. 16. Wound care. FOLLOWUP: The patient needs to be followed up with PCP in 1 to 2 weeks. The patient will need to be followed Dr. Alatorre upon discharge in 1 to 2 weeks for nephrology followup. DISCHARGE INSTRUCTIONS: The patient needs to be determined at [facility] if the patient is going to be continued on hemodialysis or not. The patient will need PT, OT, G-tube feeding. I spoke to the No wilhelm and the family at the bedside and I explained them about the consequences. Rest of the treatment will depend on the patient's hospitalization course. Dictated By: IVAN SPEAR/SUZIE Conf#: [id number] DID#: [id number] CC: LILY LAMBERT MD;*[facility]*
== END 2019-02-27 17:55 | DRG 871 ==
LOC: MS1 15:58 → TEL 01-20 15:30 → ICU 01-27 10:57 → TEL 02-02 06:40 → ICU 02-02 19:57 → TEL 02-05 18:25 → ICU 02-10 09:28 → TEL 02-12 08:32 → ICU 02-14 00:17 → TEL 02-18 18:33
PROVIDERS: ADMIT Internal Medicine; ATTEND Internal Medicine
PROC: 30233N1 Transfusion of Nonautologous Red Blood Cells into Peripheral Vein, Percutaneous Approach (ICD-10-PCS; 2019-01-18)
PROC: 02HV33Z Insertion of Infusion Device into Superior Vena Cava, Percutaneous Approach (ICD-10-PCS; principal; 2019-01-20)
PROC: 02HV33Z Insertion of Infusion Device into Superior Vena Cava, Percutaneous Approach (ICD-10-PCS; 2019-01-27)
PROC: 0HBDXZX Excision of Right Lower Arm Skin, External Approach, Diagnostic (ICD-10-PCS; 2019-01-30)
PROC: 5A09357 Assistance with Respiratory Ventilation, Less than 24 Consecutive Hours, Continuous Positive Airway Pressure (ICD-10-PCS; 2019-02-10)
PROC: 02H633Z Insertion of Infusion Device into Right Atrium, Percutaneous Approach (ICD-10-PCS; 2019-02-21)
PROC: 0W993ZZ Drainage of Right Pleural Cavity, Percutaneous Approach (ICD-10-PCS; 2019-02-21)
PROC: 06HY33Z Insertion of Infusion Device into Lower Vein, Percutaneous Approach (ICD-10-PCS; 2019-02-23)
PROC: 5A1D70Z Performance of Urinary Filtration, Intermittent, Less than 6 Hours Per Day (ICD-10-PCS; 2019-02-23)
PROC: 0DH63UZ Insertion of Feeding Device into Stomach, Percutaneous Approach (ICD-10-PCS; 2019-02-26)
DX: A41.9 Sepsis, unspecified organism (principal); R65.21 Severe sepsis with septic shock; J69.0 Pneumonitis due to inhalation of food and vomit; J96.01 Acute respiratory failure with hypoxia; G92 Toxic encephalopathy; I50.33 Acute on chronic diastolic (congestive) heart failure; G04.81 Other encephalitis and encephalomyelitis; I63.9 Cerebral infarction, unspecified; J96.92 Respiratory failure, unspecified with hypercapnia; J18.9 Pneumonia, unspecified organism; L03.314 Cellulitis of groin; N17.9 Acute kidney failure, unspecified; I13.0 Hypertensive heart and chronic kidney disease with heart failure and stage 1 through stage 4 chronic kidney disease, or unspecified chronic kidney disease; B37.89 Other sites of candidiasis; K86.2 Cyst of pancreas; I67.82 Cerebral ischemia; R47.01 Aphasia; E87.0 Hyperosmolality and hypernatremia; E87.3 Alkalosis; E87.2 Acidosis; D63.1 Anemia in chronic kidney disease; E86.0 Dehydration; E87.6 Hypokalemia; D50.9 Iron deficiency anemia, unspecified; E11.22 Type 2 diabetes mellitus with diabetic chronic kidney disease; E11.51 Type 2 diabetes mellitus with diabetic peripheral angiopathy without gangrene; E03.9 Hypothyroidism, unspecified; H49.9 Unspecified paralytic strabismus; I07.1 Rheumatic tricuspid insufficiency; I48.2 Chronic atrial fibrillation; I25.10 Atherosclerotic heart disease of native coronary artery without angina pectoris; J44.9 Chronic obstructive pulmonary disease, unspecified; K29.70 Gastritis, unspecified, without bleeding; L27.0 Generalized skin eruption due to drugs and medicaments taken internally; T36.95XA Adverse effect of unspecified systemic antibiotic, initial encounter; M06.9 Rheumatoid arthritis, unspecified; N45.1 Epididymitis; N18.9 Chronic kidney disease, unspecified; N40.0 Benign prostatic hyperplasia without lower urinary tract symptoms; R23.4 Changes in skin texture; R60.0 Localized edema; R53.81 Other malaise; R29.713 NIHSS score 13; R13.10 Dysphagia, unspecified; R60.1 Generalized edema; Z66 Do not resuscitate; Z95.1 Presence of aortocoronary bypass graft; Z87.891 Personal history of nicotine dependence; Z98.1 Arthrodesis status; Z95.828 Presence of other vascular implants and grafts; Z79.01 Long term (current) use of anticoagulants; Z79.4 Long term (current) use of insulin
CPT/HCPCS: 36430; 36569; 36600; 70450; 70552; 71045; 74018; 76775; 76937; 76942; 80048; 80053; 80061; 80202; 80307; 81001; 81003; 82140; 82270; 82533; 82550; 82553; 82565; 82607; 82728; 82746; 82803; 82962; 83010; 83036; 83540; 83605; 83615; 83735; 84100; 84145; 84295; 84443; 84484; 84520; 85014; 85018; 85025; 85045; 85610; 85651; 85730; 86301; 86706; 86850; 86900; 86901; 86920; 87045; 87070; 87075; 87081; 87340; 88305; 89220; 90935; 92526; 92610; 93005; 93880; 93970; 94640; 94660; 94664; 95819; 97110; 97163; C1752; C1769; C9113; J0744; J1120; J1200; J1335; J1610; J1644; J1815; J1940; J1953; J1956; J2060; J2270; J2920; J2930; J3010; J3370; J3420; J3475; J3480; J7030; J7040; J7042; J7050; J7070; P9016; P9047; Q5106